=== PATIENT | male | born 1965 | race Caucasian/White ===

== ENCOUNTER 2018-01-22 05:46 | Emergency (ER) | payer BC ==
[2018-01-22] MEDS ORDERED: Phenylephrine HCl 10 MG/ML 1 ML VIAL ONE (06:09)
[2018-01-22] MEDS ORDERED: TERBUTALINE SULF 1 MG/1ML ONE (06:12)
[2018-01-22] MEDS ORDERED: LIDOCAINE 1% MPF 5 ML VIAL ONE (06:49)
--- NOTE | 2018-01-22 06:57 | EDPHYS ---
Physician Documentation [facility] Name: Zeke Mackay Sr Age: 53 yrs Sex: Male : 1965 Arrival Date: 01/22/2018 Time: 05:47 Bed 5 Private MD: ED Physician Emanuel England HPI: 01/22 06:17 This 53 yrs old Male presents to ER via Ambulatory with complaints of Penile rn Problem. 06:17 The patient presents with priapism. Onset: The symptoms/episode began/occurred 5 rn hour(s) ago. Modifying factors: The symptoms are alleviated by nothing, the symptoms are aggravated by nothing. Severity of symptoms: At their worst the symptoms were moderate, in the emergency department the symptoms are unchanged. The patient has not experienced similar symptoms in the past. Reports used ED injection and has had priapism since 89, mild pain, tried Sudafed, did not work, was first time using this medication, trimix.. Historical: - Allergies: 06:01 No Known Allergies; aa1 - Home Meds: 06:01 levothyroxine oral once daily [Active]; Metformin Oral [Active]; Novolin 70/30 [place] aa1 Sub-Q [Active]; testosterone [Active]; Trimix [Active]; - PMHx: 06:01 cervical stenosis; Diabetes - IDDM; Hypertension; Hypothyroidism; aa1 - PSHx: 06:01 HIP; Appendectomy; bone graft; c-spine sx; aa1 - Immunization history:: Adult Immunizations up to date. - Social history:: Smoking status: Patient/guardian denies using tobacco. - Ebola Screening: : No symptoms or risks identified at this time. - Family history:: not pertinent. - Hospitalizations: : No recent hospitalization is reported. ROS: 06:20 Constitutional: Negative for fever, chills, and weight loss, Eyes: Negative for injury, rn pain, redness, and discharge, Neck: Negative for injury, pain, and swelling, Cardiovascular: Negative for chest pain, palpitations, and edema, Respiratory: Negative for shortness of breath, cough, wheezing, and pleuritic chest pain, Abdomen/GI: Negative for abdominal pain, nausea, vomiting, diarrhea, and constipation, : + priapism MS/Extremity: Negative for injury and deformity, Skin: Negative for injury, rash, and discoloration, Neuro: Negative for headache, weakness, numbness, tingling, and seizure. Exam: 06:20 Constitutional: This is a well developed, well nourished patient who is awake, alert, rn and in no acute distress. Male : + erection, no signs of trauma, no discoloration Vital Signs: 06:01 BP 150 / 107; Pulse 90; Resp 18; Temp 97.2; Pulse Ox 99% on R/A; Weight 92.99 kg; aa1 Height 6 ft. 2 in. (187.96 cm); 06:24 BP 152 / 76; Pulse 94; Resp 14; Pulse Ox 96% ; bp 06:01 Body Mass Index 26.32 (92.99 kg, 187.96 cm) aa1 MDM: 06:05 Patient medically screened. snw 06:24 ED course: Called Dr. Harris, no answer, message left on phone. rn 06:41 Differential diagnosis: priapism. Data reviewed: vital signs, nurses notes, and as a rn result, I will discharge patient. Counseling: I had a detailed discussion with the patient and/or guardian regarding: the historical points, exam findings, and any diagnostic results supporting the discharge/admit diagnosis, the need for outpatient follow up, to return to the emergency department if symptoms worsen or persist or if there are any questions or concerns that arise at home. Response to treatment: the patient's symptoms have markedly improved after treatment, Pt reports erection decreased by atleast 60% already after first terbutaline, will give 2nd injection. Pt reports feels better, I recommended he f/u with his urologist for eval and doppler, as well as dosage change as states this was first full dose of medication he gave himself., and as a result, I will discharge patient. ED course: Will continue to monitor and dc as long as symptoms continue to improve, return precautions given and understood.. 06:43 ED course: Was going to aspirate but after reevaluation improved flaccidity and will rn give 2nd terbutaline instead of aspiration.. 06:54 ED course: After second dose of terbutaline, patient now soft and flaccid, not rigid, rn feels better except for some soreness, consulted with Dr. Harris who was going to come see patient, but due to response to terbutaline, states ok to dc home and f/u with his urologist, as well as likely needs lower dose. . Administered Medications: 06:12 Drug: Terbutaline 0.5 mg Route: Sub-Q; Site: right upper arm; aa1 06:44 Drug: Terbutaline 0.5 mg Route: Sub-Q; Site: right upper arm; aa1 06:54 Drug: Lidocaine (1 %) 20 mg {Note: at b/s for provider.} Volume: 20 ml; Route: cc3 Infiltration; Disposition: 01/22/18 06:56 Discharged to Home. Impression: Priapism. - Condition is Stable. - Discharge Instructions: Priapism. - Medication Reconciliation Form, Thank You Letter, Antibiotic Education, Prescription Opioid Use form. - Follow up: Private Physician; When: As needed; Reason: Recheck today's complaints, Re-evaluation by your physician. - Problem is new. - Symptoms have improved. Signatures: Altagracia Jose RN RN aa1 Mariana Persaud, CHANGE MANAGEMENT EXPERT-C CHANGE MANAGEMENT EXPERT-Csnw Regina Salamanca RN RN iw Nieto, Roman, MD MD rn Peltier, Brian, RN RN bp Cordel, Charlene cc3 Corrections: (The following items were deleted from the chart) 07:09 06:56 01/22/2018 06:56 Discharged to Home. Impression: Priapism. Condition is Stable. iw Forms are Medication Reconciliation Form, Thank You Letter, Antibiotic Education, Prescription Opioid Use. Follow up: Private Physician; When: As needed; Reason: Recheck today's complaints, Re-evaluation by your physician. Problem is new. Symptoms have improved. rn
--- NOTE | 2018-01-22 06:57 | ER ---
Nurse's Notes [facility] Name: Zeke Mackay Sr Age: 53 yrs Sex: Male : 1965 Arrival Date: 01/22/2018 Time: 05:47 Bed 5 Private MD: Diagnosis: Priapism Presentation: 01/22 05:55 Presenting complaint: Patient states: he gave himself a Trimix injection for ED for the aa1 first time last night and has had an erection that has lasted 5 hours. Reports he took Sudafed as directed to try to counteract it but it did not help. Transition of care: patient was not received from another setting of care. Onset of symptoms was January 22, 2018. Risk Assessment: Do you want to hurt yourself or someone else? Patient reports no desire to harm self or others. Initial Sepsis Screen: Does the patient meet any 2 criteria? No. Patient's initial sepsis screen is negative. Does the patient have a suspected source of infection? No. Patient's initial sepsis screen is negative. Care prior to arrival: None. 05:55 Method Of Arrival: Ambulatory aa1 05:55 Acuity: RICKEY 3 aa1 Historical: - Allergies: 06:01 No Known Allergies; aa1 - Home Meds: 06:01 levothyroxine oral once daily [Active]; Metformin Oral [Active]; Novolin 70/30 [place] aa1 Sub-Q [Active]; testosterone [Active]; Trimix [Active]; - PMHx: 06:01 cervical stenosis; Diabetes - IDDM; Hypertension; Hypothyroidism; aa1 - PSHx: 06:01 HIP; Appendectomy; bone graft; c-spine sx; aa1 - Immunization history:: Adult Immunizations up to date. - Social history:: Smoking status: Patient/guardian denies using tobacco. - Ebola Screening: : No symptoms or risks identified at this time. - Family history:: not pertinent. - Hospitalizations: : No recent hospitalization is reported. Screenin:26 Abuse screen: Denies threats or abuse. Denies injuries from another. Nutritional bp screening: No deficits noted. Tuberculosis screening: No symptoms or risk factors identified. Fall Risk None identified. Assessment: 06:05 General: Appears distressed, uncomfortable, Behavior is cooperative, appropriate for bp age, anxious. Pain: Complains of pain in groin. Neuro: Level of Consciousness is awake, alert, obeys commands, Oriented to person, place, time, situation, Appropriate for age. Cardiovascular: No deficits noted. Respiratory: Airway is patent Respiratory effort is even, unlabored, Respiratory pattern is regular, symmetrical. GI: No signs and/or symptoms were reported involving the gastrointestinal system. : Reports PRIAPISM. EENT: No deficits noted. Derm: No signs and/or symptoms reported regarding the dermatologic system. Musculoskeletal: Circulation, motion, and sensation intact. Range of motion: intact in all extremities. Vital Signs: 06:01 BP 150 / 107; Pulse 90; Resp 18; Temp 97.2; Pulse Ox 99% on R/A; Weight 92.99 kg; aa1 Height 6 ft. 2 in. (187.96 cm); 06:24 BP 152 / 76; Pulse 94; Resp 14; Pulse Ox 96% ; bp 06:01 Body Mass Index 26.32 (92.99 kg, 187.96 cm) aa1 ED Course: 05:47 Patient arrived in ED. am2 05:55 John Parrish, ARTURO is Primary Nurse. bp 05:59 Triage completed. aa1 06:01 Arm band placed on right wrist. Patient placed in an exam room, on a stretcher. aa1 06:04 Mariana Persaud FNP-C is [facility]. snw 06:04 Pratik Solorzano MD is Attending Physician. snw 06:17 Attending Physician role handed off by Pratik Solorzano MD rn 06:17 Emanuel England MD is Attending Physician. rn 06:26 Patient has correct armband on for positive identification. Bed in low position. Call bp light in reach. Side rails up X2. 07:08 No provider procedures requiring assistance completed. Patient did not have IV access iw during this emergency room visit. Administered Medications: 06:12 Drug: Terbutaline 0.5 mg Route: Sub-Q; Site: right upper arm; aa1 06:44 Drug: Terbutaline 0.5 mg Route: Sub-Q; Site: right upper arm; aa1 06:54 Drug: Lidocaine (1 %) 20 mg {Note: at b/s for provider.} Volume: 20 ml; Route: cc3 Infiltration; Outcome: 06:56 Discharge ordered by . rn 07:08 Discharged to home ambulatory. iw 07:08 Condition: good 07:08 Discharge instructions given to patient, Instructed on discharge instructions, follow up and referral plans. Demonstrated understanding of instructions, follow-up care. 07:09 Patient left the ED. iw Signatures: Altagracia Jose RN RN aa1 Mariana Persaud, SOUND RECORDING TECHNICIAN-C SOUND RECORDING TECHNICIAN-Csnw Regina Salamanca RN RN iw Emanuel England MD MD rn Moreno, Amanda am2 John Parrish RN RN Cassidy Snyder cc3
[2018-01-22 07:20] VITALS: TEMP 97.2
[2018-01-22 07:21] VITALS: BP 152/76; O2SAT 96
== END 2018-01-22 07:09 | disposition home or self-care (01) ==
LOC: ER 05:46
DX: N48.30 Priapism, unspecified (principal); I10 Essential (primary) hypertension; E11.9 Type 2 diabetes mellitus without complications; E03.9 Hypothyroidism, unspecified; Z79.4 Long term (current) use of insulin
CPT/HCPCS: 96372; 99283; J2370; J3105

== ENCOUNTER 2018-02-02 10:09 | Emergency (ER) | payer BC ==
--- OUTSIDE RECORDS SUMMARY | 2018-02-02 10:11 | XMS REPORT | Clinical Summary ---
:1965 Author Organization [facility] Address [address] [place] [address] Care Team Providers Name Role Phone Provider, Unknown Primary Care Provider Allergies No Known Allergies Current Medications Prescription Sig. Disp. Refills Start Date End Date Status insulin NPH and Inject under the Active regular human skin. (HumuLIN 70/30) 100 unit/mL (70-30) injection metFORMIN Take 500 mg by Active (GLUCOPHAGE) 500 mg mouth 2 (two) tablet times a day with meals. tadalafil (CIALIS, Take 1.5 tablets 30 tablet 2 02/19/2017 03/21/2017 ADCIRCA) 5 MG (7.5 mg total) by tabletIndications: mouth daily as Erectile dysfunction needed for due to arterial erectile insufficiency dysfunction for up to 30 days. Active Problems Not on file Encounters Date Type Specialty Care Team Description 06/17/2017 Telephone Urology Jono Sparks MD 05/02/2017 Office Visit Urologlizeth Sparks, Erectile dysfunction due to arterial insufficiency (Primary Dx); Jono Pierre MD Diabetes mellitus due to underlying condition with complication, unspecified half-way insulin use status 04/22/2017 Telephone UrologJono Calderon MD 02/21/2017 Telephone Urology Jono Sparks MD 02/21/2017 Telephone Urology Jono Sparks MD 02/19/2017 Office Visit Urologlizeth Sparks Erectile dysfunction due to Jono Pierre MD arterial insufficiency (Primary Dx) after 02/01/2017 Family History Medical History Relation Name Comments Stroke Mother Relation Name Status Comments Mother Alive Social History Tobacco Use Types Packs/Day Years Used Date Never Smoker Smokeless Tobacco: Never Used Alcohol Use Drinks/Week oz/Week Comments Yes Sex Assigned at Date Recorded Not on file Last Filed Vital Signs Not on file Plan of Treatment Health Maintenance Due Date Last Done Comments DIABETIC FOOT EXAM 01/09/1974 DIABETIC RETINAL EYE EXAM 01/09/1974 URINE MICROALBUMIN 01/09/1974 COLON CANCER SCREENING 01/09/2014 SHINGRIX VACCINE (#1) 01/09/2014 INFLUENZA VACCINE 12/18/2017 Procedures Procedure Name Priority Date/Time Associated Diagnosis Comments HEMOGLOBIN A1C Routine 05/02/2017 12:00 Diabetes mellitus due Results for this PM COMMISSARY REPRESENTATIVE to underlying procedure are in condition with the results complication, section. unspecified oysterman insulin use status POC URINALYSIS Routine 05/02/2017 11:14 Erectile dysfunction Results for this DIPSTICK AM COMMISSARY REPRESENTATIVE due to arterial procedure are in insufficiency the results section. PENILE DUPLEX SCAN Routine 02/12/2017 11:15 Vascular disorder of Results for this AM CDT penis procedure are in the results section. after 02/01/2017 Results Hemoglobin A1c (05/02/2017 12:00 PM) Hemoglobin A1C 11.2 (H) 4.8 - 5.6 % [facility] Comment: Pre-diabetes: 5.7 - 6.4 Diabetes: >6.4 Glycemic control for adults with diabetes: <7.0 Specimen Blood Narrative Performed At Performed at: [facility] [address] [place], [place] [id number] Weeder Thinner: Linus Cooley MD, Phone:[phone] Performing Organization Address City/State/Zipcode Phone Number [facility] POC urinalysis dipstick (05/02/2017 11:14 AM) Color urine, POC Yellow Clarity urine, POC Clear Glucose urine, POC 3+ (A) Negative Bilirubin urine, POC Negative Negative Ketones urine, POC Negative Negative Specific gravity urine, POC 1.015 1.005 - 1.030 Blood urine, POC Negative Negative pH urine, POC 6.0 5.0, 5.5, 6.0, 6.5, 7.0, 7.5, 8.0, 8.5 Protein urine, POC Negative Negative Urobilinogen urine, POC <2.0 <2.0 Nitrite urine, POC Negative Negative Leukocyte esterase urine, POC Negative Negative Specimen Urine Penile Duplex Scan (02/12/2017 11:15 AM) Narrative Performed At Penile U/S and doppler study [facility] Diagnosis:Vascular disorder of penis Peyronie's plaque present on exam: absent Medication Tri-Mix 0.25 mL. left corpus cavernosa/ time of injection 10:27 am Quality of erection @ 10 minutes 70%,@15 minutes 85%. Adequate for intercourse yes Right CA diameter 0.8 mm. @ 10 minutes/ 0.8 @ 15 minutes (ref: range of>0.7mm) Left CA diameter 0.7 mm@ 10 minutes / 0.8 mm. @ 15 minutes (ref: range of>0.7mm) Right PSV 10 min 19.2 cm /s @ 15 minutes 20.1 cm /s (ref:>0.25-0.30 cm /s) Left PSV 10 min 45.7 cm /s@ 15 mint 64.3cm /s (ref:>0.25-0.30cm /s) RightResistive index93%(reference range of greater 90%) Left Resistive index92% (reference range of greater 90%) Right CA pulsatile yes Left CA pulsatile yes Parameters within reference range: no Systolic velocities below reference range on Right Resistive indices normal reference range onBilateral Persistent diastolic flownone} Cavernosal dilatation normal reference range on Bilateral Rigidity after injection: Rigidity 10 minutes after injection :grade 1 Rigidity 15 minutes after injectiongrade 1 Rigidity after stimulation: : grade 2 Comments: Right arterial insufficiency Performing Organization Address City/State/Zipcode Phone Number [facility] [address] [place] [address] after 02/01/2017 Insurance Payer Benefit Plan / Group Subscriber ID Type Phone Address BCBS BCBS CHOICE PPO/FEDERAL EMPL PPO xxxxxxxxxxxx PPO [phone] [place] [id number]
[2018-02-02] MEDS ORDERED: BUPIVACAINE 0.5% PF 10 ML VIAL ONE (10:33)
[2018-02-02] MEDS ORDERED: LIDOCAINE 1% MPF 2 ML AMPULE ONE (10:35)
[2018-02-02] MEDS ORDERED: TETANUS & DIPHTHERIA TOX,ADULT 0.5 ML VIAL ONE (10:42)
--- NOTE | 2018-02-02 11:13 | RAD REPORT ---
EXAM DESCRIPTION: RAD - Hand Left 3 View - 02/02/2018 10:51 am CLINICAL HISTORY: Blunt force trauma to the third digit COMPARISON: None. FINDINGS: Comminuted fracture involves the tuft of the distal third digit. No significant angulation deformity. Minimal distraction of a medial tuft fracture fragment. The third DIP joint is normal. No other fracture or acute bone finding. No foreign body or other soft tissue abnormality. IMPRESSION: Comminuted fracture involving the third distal phalanx tuft.
[2018-02-02] MEDS ORDERED: WATER FOR INJ,STERILE 10 ML ONE (11:52)
[2018-02-02] MEDS ORDERED: CEFAZOLIN SODIUM 1 GM/VIAL ONE (11:52)
--- NOTE | 2018-02-02 12:04 | ER ---
Nurse's Notes [facility] Name: Zeke Mackay Sr Age: 53 yrs Sex: Male : 1965 Arrival Date: 02/02/2018 Time: 10:11 Bed 20 Private MD: out of town, doctor Diagnosis: Displaced fracture of distal phalanx of left middle finger-with nail avulsion;Left Middle Finger Nailbed Laceration Presentation: 02/02 10:14 Presenting complaint: Patient states: I got my left index finger crushed working on the la1 car, nail involved. Transition of care: patient was not received from another setting of care. Onset of symptoms was February 02, 2018. Risk Assessment: Do you want to hurt yourself or someone else? Patient reports no desire to harm self or others. Initial Sepsis Screen: Does the patient meet any 2 criteria? No. Patient's initial sepsis screen is negative. Does the patient have a suspected source of infection? No. Patient's initial sepsis screen is negative. Care prior to arrival: None. 10:14 Method Of Arrival: Ambulatory la1 10:14 Acuity: RICKEY 4 la1 Triage Assessment: 10:25 General: Appears in no apparent distress. uncomfortable, Behavior is calm, cooperative, hj agitated. Pain:. 10:37 Musculoskeletal: Reports pain in left middle fingernail. Injury Description: Laceration.hj Historical: - Allergies: 10:15 No Known Allergies; la1 - Home Meds: 10:15 levothyroxine oral once daily [Active]; Metformin Oral [Active]; Novolin 70/30 [place] hj Sub-Q [Active]; testosterone [Active]; Trimix [Active]; - PMHx: 10:15 cervical stenosis; Diabetes - IDDM; Hypertension; Hypothyroidism; la1 - PSHx: 10:15 HIP; Appendectomy; bone graft; c-spine sx; hj - Immunization history:: Adult Immunizations up to date. - Social history:: Smoking status: unknown. - Ebola Screening: : No symptoms or risks identified at this time. Screenin:25 Abuse screen: Denies threats or abuse. Denies injuries from another. Nutritional hj screening: No deficits noted. Tuberculosis screening: No symptoms or risk factors identified. Fall Risk None identified. Vital Signs: 10:15 BP 145 / 91; Pulse 85; Resp 16; Temp 97.6; Pulse Ox 100% on R/A; Weight 97.52 kg; la1 Height 6 ft. 2 in. (187.96 cm); 12:16 BP 140 / 89; Pulse 84; Resp 18; Pulse Ox 100% on R/A; hj 10:15 Body Mass Index 27.60 (97.52 kg, 187.96 cm) la1 ED Course: 10:11 Patient arrived in ED. mr 10:11 out of town, doctor is Private Physician. mr 10:15 Triage completed. la1 10:15 Arm band placed on right wrist. la1 10:18 Rashi Miranda PA is PHCP. cp 10:18 Gillian Macias MD is Attending Physician. cp 10:24 Arpan Torres, ARTURO is Primary Nurse. hj 10:37 Wound care: to laceration located on left hand , middle finger was soaked in Betadine mh5 solution, Patient tolerated well. 10:37 No provider procedures requiring assistance completed. Patient did not have IV access hj during this emergency room visit. 10:40 Patient has correct armband on for positive identification. Bed in low position. Call mh5 light in reach. Side rails up X 1. Adult w/ patient. 10:52 XRAY Hand LEFT 3 View In Process Unspecified. EDMS 12:02 Kolton Rodriguez MD is Referral Physician. 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 Exp: 02/14/2020. Lot #: [id number]. } Route: IM; Site: right deltoid; 11:28 Follow up: Response: No adverse reaction hj 10:50 Drug: Lidocaine (1 %) 5 ml Volume: 20 ml; Route: Infiltration; hj 10:50 Drug: Marcaine (0.5 %) 5 ml Volume: 10 ml; Route: Infiltration; hj 11:28 Drug: Ancef 1 grams Route: IM; Site: right deltoid; hj 11:56 Follow up: Response: No adverse reaction hj Outcome: 12:03 Discharge ordered by MD. cp 12:15 Discharged to home ambulatory, with family. hj 12:15 Condition: stable 12:15 Discharge instructions given to patient, family, Instructed on discharge instructions, follow up and referral plans. medication usage, wound care, Demonstrated understanding of instructions, follow-up care, medications, wound care, Prescriptions given X 2. 12:21 Patient left the ED. andres Signatures: Dispatcher [employer] Ladi Uriarte Lee, RN RN la1 Arpan Torres RN RN hj Page, Corey, PA PA cp Martinez, Maria 5
--- NOTE | 2018-02-02 12:04 | EDPHYS ---
Physician Documentation [facility] Name: Zeke Mackay Sr Age: 53 yrs Sex: Male : 1965 Arrival Date: 02/02/2018 Time: 10:11 Bed 20 Private MD: out of town, doctor ED Physician Gillian Macias HPI: 02/02 10:30 This 53 yrs old Male presents to ER via Ambulatory with complaints of Finger cp Injury. Historical: - Allergies: 10:15 No Known Allergies; la1 - Home Meds: 10:15 levothyroxine oral once daily [Active]; Metformin Oral [Active]; Novolin 70/30 [place] hj Sub-Q [Active]; testosterone [Active]; Trimix [Active]; - PMHx: 10:15 cervical stenosis; Diabetes - IDDM; Hypertension; Hypothyroidism; la1 - PSHx: 10:15 HIP; Appendectomy; bone graft; c-spine sx; hj - Immunization history:: Adult Immunizations up to date. - Social history:: Smoking status: unknown. - Ebola Screening: : No symptoms or risks identified at this time. ROS: 10:35 Constitutional: Negative for body aches, chills, fever, poor PO intake. cp 10:35 Eyes: Negative for injury, pain, redness, and discharge. cp 10:35 ENT: Negative for drainage from ear(s), ear pain, sore throat. 10:35 Cardiovascular: Negative for chest pain, palpitations. 10:35 Respiratory: Negative for cough, shortness of breath, wheezing. 10:35 Abdomen/GI: Negative for abdominal pain, nausea, vomiting, and diarrhea. 10:35 MS/extremity: Positive for injury or acute deformity, pain, of the distal phalanx left middle finger, Negative for decreased range of motion, paresthesias. 10:35 All other systems are negative. Exam: 11:00 Constitutional: The patient appears in no acute distress, alert, awake, non-toxic, well cp developed, well nourished. 11:00 Head/Face: Normocephalic, atraumatic. cp 11:00 Eyes: Periorbital structures: appear normal, Conjunctiva: normal, no exudate, no injection, Lids and lashes: appear normal, bilaterally. 11:00 ENT: External ear(s): are unremarkable, Nose: is normal, Mouth: is normal, Posterior pharynx: is normal, airway is patent. 11:00 Chest/axilla: Inspection: normal. 11:00 Cardiovascular: Rate: normal, Rhythm: regular. 11:00 Respiratory: the patient does not display signs of respiratory distress, Respirations: normal, no use of accessory muscles, no retractions, no splinting, no tachypnea. 11:00 Abdomen/GI: Exam negative for discomfort, distension, guarding, Inspection: abdomen appears normal. 11:00 Musculoskeletal/extremity: Extremities: grossly normal except: noted in the crush injury distal phalanx left middle finger: laceration, pain, complete avulsion of nail, Perfusion: the extremity is normally perfused throughout, Sensation intact. Tendon exam: specific tendon testing normal through active and passive range of motion Vital Signs: 10:15 BP 145 / 91; Pulse 85; Resp 16; Temp 97.6; Pulse Ox 100% on R/A; Weight 97.52 kg; la1 Height 6 ft. 2 in. (187.96 cm); 12:16 BP 140 / 89; Pulse 84; Resp 18; Pulse Ox 100% on R/A; hj 10:15 Body Mass Index 27.60 (97.52 kg, 187.96 cm) la1 Laceration: 11:57 Wound Repair of 1.5cm ( 0.6in ) nailbed laceration to distal phalanx left middle cp finger. Irregularly shaped.. Distal neuro/vascular/tendon intact. Anesthesia: Digital block administered with 8 mls of Lido/Marcaine. Wound prep: Extensive cleansing by me, Wound irrigation by me, Copious irrigation. nailbed closed with 5 5-0 Vicryl using interrupted sutures and sterile technique. Dressed with tube gauze, xeroform. Patient tolerated well. 11:57 Wound Repair of 1.5cm ( 0.6in ) subcutaneous laceration to distal phalanx left middle cp finger. Linear shaped.. Distal neuro/vascular/tendon intact. Anesthesia: Digital block administered with 8 mls of Lido/Marcaine. Wound prep: Extensive cleansing by me, Wound irrigation by me, Copious irrigation. Skin closed with 3 5-0 Prolene using interrupted sutures and sterile technique. Dressed with Bacitracin, tube gauze. Patient tolerated well. MDM: 10:18 Patient medically screened. cp 10:30 Differential diagnosis: open fracture, closed fracture, contusion. cp 12:00 Data reviewed: vital signs, nurses notes, radiologic studies, plain films. cp 12:00 Test interpretation: by ED physician or midlevel provider: plain radiologic studies. cp Counseling: I had a detailed discussion with the patient and/or guardian regarding: the historical points, exam findings, and any diagnostic results supporting the discharge/admit diagnosis, radiology results, the need for outpatient follow up, a hand specialist, to return to the emergency department if symptoms worsen or persist or if there are any questions or concerns that arise at home. Response to treatment: the patient's symptoms have markedly improved after treatment, and as a result, I will discharge patient. Special discussion: I discussed in detail with the patient the higher chance of wound infection based on his presenting history. 02/02 10:27 Order name: XRAY Hand LEFT 3 View; Complete Time: 11:14 cp 02/02 10:27 Order name: Dressing - Wound; Complete Time: 10:41 cp 02/02 10:27 Order name: Gloves, Sterile; Complete Time: 10:41 cp 02/02 10:27 Order name: Setup Suture Tray; Complete Time: 10:41 cp 02/02 11:56 Order name: Wound dressing; Complete Time: 12:04 cp Administered Medications: 10:30 Drug: Tetanus-Diphtheria Toxoid Adult 0.5 ml {Brass Sorter: [employer]. Exp: 02/14/2020. Lot #: [id number]. } Route: IM; Site: right deltoid; 11:28 Follow up: Response: No adverse reaction hj 10:50 Drug: Lidocaine (1 %) 5 ml Volume: 20 ml; Route: Infiltration; hj 10:50 Drug: Marcaine (0.5 %) 5 ml Volume: 10 ml; Route: Infiltration; hj 11:28 Drug: Ancef 1 grams Route: IM; Site: right deltoid; 11:56 Follow up: Response: No adverse reaction Disposition: 18:20 Co-signature as Attending Physician, Gillian Macias MD. ma2 Disposition: 02/02/18 12:03 Discharged to Home. Impression: Displaced fracture of distal phalanx of left middle finger - with nail avulsion, Left Middle Finger Nailbed Laceration. - Condition is Stable. - Discharge Instructions: Finger Fracture, Nail Avulsion, Nail Bed Laceration. - Prescriptions for Keflex 500 mg Oral Capsule - take 1 capsule by ORAL route every 6 hours for 10 days; 40 capsule. Tylenol- Codeine #3 300-30 mg Oral Tablet - take 2 tablets by ORAL route every 6 hours As needed; 20 tablet. - Medication Reconciliation Form, Thank You Letter, Antibiotic Education, Prescription Opioid Use form. - Follow up: Kolton Rodriguez MD; When: 1 - 2 days; Reason: Wound Recheck. - Problem is new. - Symptoms have improved. Signatures: Dispatcher [employer] EDMS You Carson RN RN la1 Arpan Torres RN RN hj Rashi Miranda PA PA cp Gillian Macias MD MD ma2 Corrections: (The following items were deleted from the chart) 12:06 12:03 02/02/2018 12:03 Discharged to Home. Impression: Displaced fracture of distal cp phalanx of left middle finger - with nail damage. Condition is Stable. Forms are Medication Reconciliation Form, Thank You Letter, Antibiotic Education, Prescription Opioid Use. Follow up: Kolton Rodriguez; When: 1 - 2 days; Reason: Wound Recheck. Problem is new. Symptoms have improved. cp 12:21 12:06 02/02/2018 12:03 Discharged to Home. Impression: Displaced fracture of distal hj phalanx of left middle finger - with nail avulsion; Left Middle Finger Nailbed Laceration. Condition is Stable. Discharge Instructions: Finger Fracture, Nail Avulsion, Nail Bed Laceration. Prescriptions for Keflex 500 mg Oral Capsule - take 1 capsule by ORAL route every 6 hours for 10 days; 40 capsule, Tylenol-Codeine #3 300-30 mg Oral Tablet - take 2 tablets by ORAL route every 6 hours As needed; 20 tablet. and Forms are Medication Reconciliation Form, Thank You Letter, Antibiotic Education, Prescription Opioid Use. Follow up: Kolton Rodriguez; When: 1 - 2 days; Reason: Wound Recheck. Problem is new. Symptoms have improved. cp
[2018-02-02 12:38] VITALS: TEMP 97.6; O2SAT 100
[2018-02-02 12:39] VITALS: BP 140/89
== END 2018-02-02 12:21 | disposition home or self-care (01) ==
LOC: ER 10:09
PROC: 0JQK0ZZ Repair Left Hand Subcutaneous Tissue and Fascia, Open Approach (ICD-10-PCS; principal; 2018-02-02)
DX: S62.633A Displaced fracture of distal phalanx of left middle finger, initial encounter for closed fracture (principal); S61.313A Laceration without foreign body of left middle finger with damage to nail, initial encounter; Z23 Encounter for immunization; I10 Essential (primary) hypertension; E11.9 Type 2 diabetes mellitus without complications; E03.9 Hypothyroidism, unspecified
CPT/HCPCS: 90714; 96372; 99284; J0690; J2001

== ENCOUNTER 2018-07-22 09:59 | Emergency (ER) | payer BC ==
--- OUTSIDE RECORDS SUMMARY | 2018-07-22 10:05 | XMS REPORT | Clinical Summary ---
:1965 Author Organization [facility] Address [address] [place] [address] Care Team Providers Name Role Phone Provider, Unknown Primary Care Provider Allergies No Known Allergies Medications Medication Sig Dispensed Refills Start Date End Date Status insulin NPH and Inject under the 0 Active regular human (HumuLIN skin. 70/30) 100 unit/mL (70-30) injection metFORMIN (GLUCOPHAGE) Take 500 mg by 0 Active 500 mg tablet mouth 2 (two) times a day with meals. Active Problems Not on file Family History Medical History Relation Name Comments Stroke Mother Relation Name Status Comments Mother Alive Social History Tobacco Use Types Packs/Day Years Used Date Never Smoker Smokeless Tobacco: Never Used Alcohol Use Drinks/Week oz/Week Comments Yes Sex Assigned at Date Recorded Not on file Job Start Date Occupation Industry Not on file Not on file Not on file Travel History Travel Start Travel End No recent travel history available. Last Filed Vital Signs Not on file Plan of Treatment Health Maintenance Due Date Last Done Comments COLON CANCER SCREENING 01/09/2014 SHINGLES VACCINES (#1) 01/09/2014 INFLUENZA VACCINE 12/18/2017 Results Not on fileafter 07/21/2017 Insurance Payer Benefit Plan / Group Subscriber ID Type Phone Address BCBS BCBS CHOICE PPO/FEDERAL EMPL PPO xxxxxxxxxxxx PPO Advance Directives Patient has advance care planning documents on file. For more information, please contact:[address] [address]
--- NOTE | 2018-07-22 10:35 | ER ---
Nurse's Notes [facility] Name: Zeke Mackay Sr Age: 53 yrs Sex: Male : 1965 Arrival Date: 07/22/2018 Time: 10:00 Bed 15 Private MD: Hazel Mcbride Z Diagnosis: Pressure ulcer of other site, stage 4 Presentation: 07/22 10:18 Presenting complaint: Patient states: wound to L great toe, started about one month rb1 ago. it smells. Transition of care: patient was not received from another setting of care. Onset of symptoms was June 2018. Risk Assessment: Do you want to hurt yourself or someone else? Patient reports no desire to harm self or others. Initial Sepsis Screen: Does the patient meet any 2 criteria? No. Patient's initial sepsis screen is negative. Does the patient have a suspected source of infection? Yes: Skin breakdown/wound. Care prior to arrival: None. 10:18 Method Of Arrival: Ambulatory rb1 10:18 Acuity: RICKEY 3 rb1 Triage Assessment: 10:20 General: Appears in no apparent distress. comfortable, Behavior is calm, cooperative, rb1 appropriate for age. Pain: Denies pain. 10:27 Musculoskeletal: Capillary refill < 3 seconds, in bilateral toes. pt has swelling and a ch wound to L great toe, entire toe is reddened and enlarged. pt has wound to bottom lateral side of toe, black around the edges. 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 - Social history:: Smoking status: Patient/guardian denies using tobacco. - Ebola Screening: : Patient negative for fever greater than or equal to 101.5 degrees Fahrenheit, and additional compatible Ebola Virus Disease symptoms Patient denies exposure to infectious person Patient denies travel to an Ebola-affected area in the 21 days before illness onset No symptoms or risks identified at this time. Screenin:15 Abuse screen: Denies threats or abuse. Nutritional screening: No deficits noted. rb1 Tuberculosis screening: No symptoms or risk factors identified. Fall Risk None identified. Assessment: 10:15 Reassessment: discharge pending due to Dr. Shin wanting to do an x-ray before the pt. rb1 is discharged and goes over to the wound care center. 10:15 General: Appears in no apparent distress. comfortable, Behavior is calm, cooperative, rb1 Denies fever, feeling ill. Pain: Denies pain. Neuro: Level of Consciousness is awake, alert, obeys commands, Oriented to person, place, time, situation. Cardiovascular: Capillary refill < 3 seconds is brisk in bilateral toes. Respiratory: Airway is patent Respiratory effort is even, unlabored, Respiratory pattern is regular, symmetrical. GI: No signs and/or symptoms were reported involving the gastrointestinal system. : No signs and/or symptoms were reported regarding the genitourinary system. Derm: Wound noted left great toe Wound is There is a whole on the left plantar great toe that has been there for a month per pt report. Musculoskeletal: Range of motion: intact in all extremities. 11:15 Reassessment: Patient appears in no apparent distress at this time. No changes from rb1 previously documented assessment. 11:24 Reassessment: x-ray at bedside. rb1 Vital Signs: 10:20 BP 161 / 92; Pulse 76; Resp 16; Temp 98.2; Pulse Ox 99% on R/A; Weight 91.17 kg; Height rb1 6 ft. 2 in. (187.96 cm); Pain 0/10; 11:20 BP 159 / 89; Pulse 72; Resp 17; Pulse Ox 100% on R/A; Pain 0/10; rb1 10:20 Body Mass Index 25.81 (91.17 kg, 187.96 cm) [facility] ED Course: 10:00 Patient arrived in ED. ag5 10:00 Hazel Mcbride MD is Private Physician. ag5 10:15 Arm band placed on left wrist. Patient placed in an exam room, on a stretcher, on pulse ch oximetry. 10:15 Patient has correct armband on for positive identification. Bed in low position. Call rb1 light in reach. Side rails up X 1. Pulse ox on. NIBP on. 10:16 Ronnell Shin MD is Attending Physician. gs 10:19 Triage completed. rb1 10:34 Juan Carlos Andrade DPM is Referral Physician. gs 10:34 Arpan Merino MD is Referral Physician. gs 10:39 Laquita Betancur, RN is Primary Nurse. rb1 11:35 Foot Left 3 View XRAY In Process Unspecified. EDMS 11:36 Juan Carlos Andrade DPM is Referral Physician. gs 11:36 Arpan Merino MD is Referral Physician. gs 11:42 No provider procedures requiring assistance completed. Patient did not have IV access rb1 during this emergency room visit. Administered Medications: No medications were administered Outcome: 10:35 Discharge ordered by MD. gs 11:37 Discharge ordered by MD. gs 11:42 Discharged to home ambulatory. rb1 11:42 Condition: stable 11:42 Discharge instructions given to patient, Instructed on discharge instructions, follow up and referral plans. medication usage, Demonstrated understanding of instructions, follow-up care, medications, Prescriptions given X 1. 11:42 Patient left the ED. rb1 Signatures: Dispatcher [employer] EDMS Emilia Marcano RN RN Laquita Betancur, ARTURO RN [facility] Ronnell Shin MD MD gs [place], Ajare ag5
--- NOTE | 2018-07-22 10:35 | EDPHYS ---
Physician Documentation [facility] Name: Zeke Mackay Sr Age: 53 yrs Sex: Male : 1965 Arrival Date: 07/22/2018 Time: 10:00 Bed 15 Private MD: Hazel Mcbride Z ED Physician Ronnell Shin HPI: 07/22 10:24 This 53 yrs old Male presents to ER via Ambulatory with complaints of gs INFECTED TOE. 10:24 The patient presents with ulcer plantar left great toe.. Onset: The symptoms/episode gs began/occurred 1 month(s) ago. Modifying factors: The symptoms are alleviated by nothing, the symptoms are aggravated by weight bearing. Associated signs and symptoms: Pertinent negatives: fever. Severity of symptoms: At their worst the symptoms were moderate, in the emergency department the symptoms are unchanged. The patient has not experienced similar symptoms in the past. 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 - Social history:: Smoking status: Patient/guardian denies using tobacco. - Ebola Screening: : Patient negative for fever greater than or equal to 101.5 degrees Fahrenheit, and additional compatible Ebola Virus Disease symptoms Patient denies exposure to infectious person Patient denies travel to an Ebola-affected area in the 21 days before illness onset No symptoms or risks identified at this time. ROS: 10:24 All other systems are negative. gs Exam: 10:24 Head/Face: Normocephalic, atraumatic. Cardiovascular: Regular rate and rhythm with a gs normal S1 and S2. No gallops, murmurs, or rubs. Normal PMI, no JVD. No pulse deficits. Respiratory: Lungs have equal breath sounds bilaterally, clear to auscultation and percussion. No rales, rhonchi or wheezes noted. No increased work of breathing, no retractions or nasal flaring. Abdomen/GI: Soft, non-tender, with normal bowel sounds. No distension or tympany. No guarding or rebound. No evidence of tenderness throughout. Back: No spinal tenderness. No costovertebral tenderness. Full range of motion. Neuro: Awake and alert, GCS 15, oriented to person, place, time, and situation. Cranial nerves II-XII grossly intact. Motor strength 5/5 in all extremities. Sensory grossly intact. Cerebellar exam normal. Normal gait. 10:24 Constitutional: The patient appears alert, awake. 10:24 Musculoskeletal/extremity: Circulation is intact in all extremities. Sensation intact. 10:24 Skin: lesion(s), located on the plantar aspect of right first toe. 10:24 Skin: 2x2 cm stage 4, large callous no erythema minimal drainage. Vital Signs: 10:20 BP 161 / 92; Pulse 76; Resp 16; Temp 98.2; Pulse Ox 99% on R/A; Weight 91.17 kg; Height rb1 6 ft. 2 in. (187.96 cm); Pain 0/10; 11:20 BP 159 / 89; Pulse 72; Resp 17; Pulse Ox 100% on R/A; Pain 0/10; rb1 10:20 Body Mass Index 25.81 (91.17 kg, 187.96 cm) rb1 MDM: 10:24 Patient medically screened. gs 10:24 Data reviewed: vital signs, nurses notes. Other consultation: wound care clinic will see now. 11:35 Differential diagnosis: ulcer,osteomyelitis. Data reviewed: radiologic studies, plain gs films. Response to treatment: the patient's symptoms have mildly improved after treatment, and as a result, I will discharge patient. 11:38 Counseling: I had a detailed discussion with the patient and/or guardian regarding: the gs historical points, exam findings, and any diagnostic results supporting the discharge/admit diagnosis, the presence of at least one elevated blood pressure reading (>120/80) during this emergency department visit, the need for outpatient follow up. Special discussion: I have referred the patient to see his PCP for further evaluation of high blood pressure. 07/22 10:39 Order name: Foot Left 3 View XRAY gs Administered Medications: No medications were administered Disposition: 07/22/18 11:37 Discharged to Home. Impression: Pressure ulcer of other site, stage 4. - Condition is Stable. - Discharge Instructions: Pressure Injury, Managing Your Hypertension. - Prescriptions for Levaquin 250 mg Oral Tablet - take 1 tablet by ORAL route once daily for 7 days; 7 tablet. - Medication Reconciliation Form, Thank You Letter, Antibiotic Education, Prescription Opioid Use form. - Follow up: Juan Carlos Andrade DPM; When: 2 - 3 days; Reason: Re-evaluation by your physician. Follow up: Arpan Merino MD; When: 2 - 3 days; Reason: Re-evaluation by your physician. Signatures: Dispatcher [employer] EDMS Emilia Marcano RN RN ch Laquita Betancur RN RN rb1 Ronnell Shin MD MD Corrections: (The following items were deleted from the chart) 10:38 10:24 The patient presents with ulcer plantar right great toe, gs gs 10:40 10:35 07/22/2018 10:35 Discharged to Home. Impression: Pressure ulcer of unspecified gs site, stage 4. Condition is Stable. Forms are Medication Reconciliation Form, Thank You Letter, Antibiotic Education, Prescription Opioid Use. Follow up: Juan Carlos Andrade; When: 2 - 3 days; Reason: Re-evaluation by your physician. Follow up: Arpan Merino; When: 2 - 3 days. gs 11:42 11:37 07/22/2018 11:37 Discharged to Home. Impression: Pressure ulcer of other site, rb1 stage 4. Condition is Stable. Prescriptions for Levaquin 250 mg Oral Tablet - take 1 tablet by ORAL route once daily for 7 days; 7 tablet. and Forms are Medication Reconciliation Form, Thank You Letter, Antibiotic Education, Prescription Opioid Use. Follow up: Juan Carlos Andrade; When: 2 - 3 days; Reason: Re-evaluation by your physician. Follow up: Arpan Merino; When: 2 - 3 days; Reason: Re-evaluation by your physician. gs
--- NOTE | 2018-07-22 11:45 | RAD REPORT ---
EXAM DESCRIPTION: RAD - Foot Left 3 View - 07/22/2018 11:35 am CLINICAL HISTORY: Left Foot pain FINDINGS: No fracture or dislocation is seen. Ulceration plantar soft tissue medial forefoot. No bony destructive lesion is seen. Bones are osteoporotic
[2018-07-22 11:51] VITALS: BP 159/89; O2SAT 100
[2018-07-22 11:52] VITALS: TEMP 98.2
== END 2018-07-22 11:42 | disposition home or self-care (01) ==
LOC: ER 09:59
DX: L89.894 Pressure ulcer of other site, stage 4 (principal); E11.9 Type 2 diabetes mellitus without complications; I10 Essential (primary) hypertension; E03.9 Hypothyroidism, unspecified; Z79.4 Long term (current) use of insulin
CPT/HCPCS: 99283

== ENCOUNTER 2018-08-04 11:40 | Inpatient (IN) | payer BC ==
--- OUTSIDE RECORDS SUMMARY | 2018-08-04 11:46 | XMS REPORT | Clinical Summary ---
:1965 Author Organization [facility] Address [address] [place] [address] Care Team Providers Name Role Phone Provider, [...] INFLUENZA VACCINE 12/18/2017 Results Not on fileafter 08/03/2017 Insurance Payer Benefit Plan / Group Subscriber ID Type Phone Address BCBS BCBS CHOICE PPO/FEDERAL EMPL PPO xxxxxxxxxxxx PPO Advance Directives Patient has advance care planning documents on file. For more information, please contact:[address] [address]
[2018-08-04 14:53] VITALS: BMI 25.7
[2018-08-04 15:11] LABS: Absolute Lymphocytes (CBC) 1.7 K/uL (0.7-4.9); Absolute Monocytes 0.6 K/uL (0.1-1.3); Absolute Neutrophil 6.1 K/uL (1.8-8.0); Eosinophils % 0.7 % (0-4.4); Hematocrit 41.8 % (39.6-49.0); Lymphocytes % 19.9 % (15.3-44.8); MPV 7.3 fL (7.6-11.3); Monocytes % 6.6 % (3.3-12.3); RBC Red Blood Cell Count 5.32 M/uL (4.33-5.43)
[2018-08-04 15:27] LABS: Potassium 4.6 mmol/L (3.5-5.1)
--- NOTE | 2018-08-04 15:42 | P.HP ---
Certification for Inpatient Patient admitted to: Inpatient With expected LOS: >2 Midnights Practitioner: I am a practitioner with admitting privileges, knowledge of patient current condition, hospital course, and medical plan of care. Services: Services provided to patient in accordance with Admission requirements found in Title 42 Section 412.3 of the Code of Federal Regulations Patient History Date of Service: 08/04/18 Primary Care Provider: Dr. marrero Reason for admission: Left hallux osteomyelitis History of Present Illness: This is a 53-year-old male with history of diabetes mellitus type 2, hyperlipidemia admitted for osteomyelitis of left hallux straight from the wound Care Center. Per patient, a few months ago patient going to cut from a piece of glass being stuck in issue. Since then, patient has a hard time with wound healing and the wound got infected. He has been following Dr. Andrade in the wound healing center for wound care. He had imaging and blood work done last week, this week at wound care followup, he was admitted for a left hallux cellulitis after MRI was reviewed At the time of my exam, he was alert and oriented x3, in no acute distress and hemodynamically stable. Allergies No Known Allergies Allergy (Unverified 01/19/16 11:41) Home Medications: Insulin 70/30 NPH/Reg Human [Novolin 70/30*] 25 unit SQ BID 07/28/18 Cholecalciferol (Vitamin D3) [Vitamin D3] 10,000 unit PO DAILY 08/04/18 Lisinopril [Prinivil] 10 mg PO DAILY 08/04/18 Metformin HCl 1,000 mg PO BID 08/04/18 Thyroid 30 mg PO DAILY 08/04/18 - Past Medical/Surgical History Has patient received pneumonia vaccine in the past: Yes Diabetic: Yes -: Neuropathy -: Diabetes -: lap appy -: L wrist fx repair -: R hand fx repair -: c3-6 fused - Social History Smoking Status: Never smoker Alcohol use: No CD- Drugs: No Caffeine use: Yes Place of Residence: Home Review of Systems 10-point ROS is otherwise unremarkable Physical Examination - Vital Signs Temperature: 98.7 F Blood Pressure: 124/74 Pulse: 85 Respirations: 16 Pulse Ox (%): 91 - Physical Exam General: Alert, In no apparent distress, Oriented x3 HEENT: Atraumatic, PERRLA, Mucous membr. moist/pink, EOMI, Sclerae nonicteric Neck: Supple, 2+ carotid pulse no bruit, No LAD, Without JVD or thyroid abnormality Respiratory: Clear to auscultation bilaterally, Normal air movement Cardiovascular: Regular rate/rhythm, Normal S1 S2 Gastrointestinal: Normal bowel sounds, No tenderness Musculoskeletal: No tenderness Integumentary: Diabetic ulcer (Left toe) Neurological: Normal gait, Normal speech, Normal strength at 5/5 x4 extr, Normal tone, Normal affect - Studies Laboratory Data (last 24 hrs) 08/04/18 15:00: Sodium 132 L, Potassium 4.6, BUN 16, Creatinine 1.24, Glucose 294 H 08/04/18 15:00: WBC 8.6, Hgb 14.0, Hct 41.8, Plt Count 401 Assessment and Plan - Problems (Diagnosis) (1) Osteomyelitis Current Visit: Yes Status: Acute Qualifiers: Osteomyelitis type: other acute Osteomyelitis location: foot Laterality: left Qualified Code(s): M86.172 - Other acute osteomyelitis, left ankle and foot (2) Cellulitis Current Visit: Yes Status: Acute Qualifiers: Site of cellulitis: extremity Site of cellulitis of extremity: toe Laterality: left Qualified Code(s): L03.032 - Cellulitis of left toe (3) Hyperlipidemia Current Visit: Yes Status: Acute Qualifiers: Hyperlipidemia type: unspecified Qualified Code(s): E78.5 - Hyperlipidemia , unspecified (4) Diabetes Current Visit: No Status: Acute Qualifiers: Diabetes mellitus type: type 2 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 [facility] use Diabetes mellitus complication status: with skin complications Diabetes mellitus complication detail: with foot ulcer Qualified Code(s): E11.621 - Type 2 diabetes mellitus with foot ulcer; L97.509 - Non-pressure chronic ulcer of other part of unspecified foot with unspecified severity; Z79.4 - 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 Cellulitis of left hallux Diabetic foot ulcer Start IV vancomycin PICC line, for long-term IV antibiotics Wound healing consult Diabetes mellitus type 2 with insulin complicated by diabetic foot ulcer Will restart home Novolin 70 30, 25 units in the morning and 20 units in the morning Accu-Cheks, sliding scale insulin Will adjust as needed Patient will need strict blood sugar controls for wound healing Hyperlipidemia. Will restart home medications as tolerated DVT prophylaxis: Lovenox GI prophylaxis: None Diet: Diabetic Disposition: Admit to the floor with tele. Pending PICC line placement, symptomatic improvement. - Advance Directives Does patient have a Living Will: No Does patient have a Durable POA for Healthcare: No Time Spent Managing Pts Care (In Minutes): 55
[2018-08-04 15:44] LABS: Urine Appearance CLEAR; Urine Bilirubin NEGATIVE (NEG); Urine Blood NEGATIVE (NEG); Urine Color YELLOW; Urine Glucose 3+ (NEG); Urine Protein NEGATIVE (NEG); Urine Specific Gravity >=1.030 (1.005-1.030); Urine Urobilinogen 0.2 mg/dL (0.2-1.0)
[2018-08-04] MEDS ORDERED: D50W 25 GM/50 ML SYRINGE IV PRN (15:45)
[2018-08-04] MEDS ORDERED: GLUCAGON 1 MG/VIAL IM PRN (15:45)
[2018-08-04 15:48] LABS: Urine Microscopic Reflex NO UMIC
[2018-08-04] MEDS ORDERED: VANCOMYCIN 2.25 GM in NA CHLORIDE 0.9% 500 ML IVPB ONE (17:00)
[2018-08-04] MEDS: INSULIN -REGULAR HUMAN 50 UNIT/0.5 ML ML SQ SCH ×2 (17:53→21:23)
[2018-08-04] MEDS ORDERED: INFLUENZA VACCINE (for 3y+) 0.5 ML DOSE IMVAC ONE (19:00)
[2018-08-04] MEDS ORDERED: VANCOMYCIN 1.25 GM in NA CHLORIDE 0.9% 250 ML IVPB SCH (21:00)
[2018-08-04] MEDS: INSULIN 70/30 100 UNITS/ML SQ SCH (21:22)
[2018-08-04] MEDS: ONDANSETRON 4 MG/2 ML VIAL IV PRN (22:16)
[2018-08-05] MEDS: ONDANSETRON 4 MG/2 ML VIAL IV PRN ×3 (01:34→11:44)
[2018-08-05] MEDS: THYROID 30 MG TAB PO SCH (05:11)
[2018-08-05 07:03] LABS: Absolute Lymphocytes (CBC) 0.4 K/uL (0.7-4.9); Absolute Monocytes 0.3 K/uL (0.1-1.3); Absolute Neutrophil 9.3 K/uL (1.8-8.0); Basophils % 0.6 % (0-1.3); Eosinophils % 0.5 % (0-4.4); Hematocrit 43.9 % (39.6-49.0); Lymphocytes % 4.3 % (15.3-44.8); MPV 7.4 fL (7.6-11.3); Monocytes % 3.2 % (3.3-12.3); RBC Red Blood Cell Count 5.54 M/uL (4.33-5.43)
[2018-08-05 07:18] LABS: Albumin 2.9 g/dL (3.4-5.0); Bilirubin Total 0.5 mg/dL (0.2-1.0); Phosphorus 2.6 mg/dL (2.5-4.9); Potassium 4.6 mmol/L (3.5-5.1); Protein, Total 7.5 g/dL (6.4-8.2)
[2018-08-05 08:34] LABS: Blood Morphology Comment NOT SEEN (NOT SEEN); Platelet Estimate ADEQ
[2018-08-05] MEDS: INSULIN -REGULAR HUMAN 50 UNIT/0.5 ML ML SQ SCH ×4 (10:11→21:52)
[2018-08-05] MEDS: VITAMIN D 5,000 UNIT CAP PO SCH (10:12)
[2018-08-05] MEDS: LISINOPRIL 10 MG TAB PO SCH (10:13)
[2018-08-05] MEDS: COLLAGENASE 30 GM OINTMENT TOP SCH (10:15)
[2018-08-05] MEDS: VANCOMYCIN 1.75 GM in NA CHLORIDE 0.9% 500 ML IVPB SCH (10:17)
[2018-08-05] MEDS: INSULIN 70/30 100 UNITS/ML SQ SCH ×2 (10:28→21:52)
--- NOTE | 2018-08-05 11:23 | RAD REPORT ---
EXAM DESCRIPTION: Chest Single View CLINICAL HISTORY: 3 years Male, PICC line Placement COMPARISON: None FINDINGS: Placement of left upper extremity PICC which terminates at the cavoatrial junction. No focal lung consolidation.No pleural effusion. No pneumothorax. Cardiac and mediastinal silhouette is unremarkable. No acute osseous abnormality. IMPRESSION: Appropriately placed left upper extremity PICC. No pneumothorax. No acute cardiopulmonary disease. Electronically signed by: Elmo Vigil DO 08/05/2018 2:04 AM CDT Due to temporary technical issues with the PACS/Fluency reporting system, reports are being signed by the in house radiologist as a courtesy to ensure prompt reporting. The interpreting radiologist is f ully responsible for the content of the report.
--- NOTE | 2018-08-05 13:05 | P.CNS ---
Date of Consult: 08/05/18 Primary Care Provider: Dr. marrero Chief Complaint: Left hallux osteomyelitis History of Present Illness: Patient was seen in wound care 08/04/18 and admitted for osteomyelitis with cellulitis left hallux Allergies No Known Allergies Allergy (Unverified 01/19/16 11:41) Home Medications: Cholecalciferol (Vitamin D3) [Vitamin D3] 10,000 unit PO DAILY 08/04/18 Lisinopril [Prinivil] 10 mg PO DAILY 08/04/18 Metformin HCl 1,000 mg PO BID 08/04/18 Thyroid 30 mg PO DAILY 08/04/18 Insulin 70/30 NPH/Reg Human [Novolin 70/30*] 20 unit SQ BEDTIME 08/05/18 Insulin 70/30 NPH/Reg Human [Novolin 70/30*] 25 unit SQ BREAKFAST 08/05/18 - Past Medical/Surgical History Diabetic: Yes -: Neuropathy -: Diabetes -: lap appy -: L wrist fx repair -: R hand fx repair -: c3-6 fused - Social History Smoking Status: Unknown if ever smoked Alcohol use: No CD- Drugs: No Caffeine use: Yes Place of Residence: Home Review of Systems 10-point ROS is otherwise unremarkable Physical Examination Temp Pulse Resp BP Pulse Ox 98.7 F 63 16 118/63 95 08/05/18 08:00 08/05/18 10:13 08/05/18 08:00 08/05/18 10:13 08/05/18 08:00 General: Alert, In no apparent distress, Oriented x3 Cardiovascular: No edema, Normal pulses Capillary refill: <2 Seconds Musculoskeletal: No clubbing, No swelling, No contractures, No erythema, No tenderness, No warmth Integumentary: Diabetic ulcer (ulceration left hallux is improved with decreased erythema and demarcation of the necrotic tissue being present. No purulence noted. ) Neurological: Abnormal sensation Laboratory Data (last 24 hrs) 08/05/18 06:10: Sodium 135 L, Potassium 4.6, BUN 18, Creatinine 1.04, Glucose 282 H, Phosphorus 2.6, Magnesium 2.0, Total Bilirubin 0.5, AST 13 L, ALT 15, Alkaline Phosphatase 88 08/05/18 06:10: WBC 10.2 D, Hgb 14.6, Hct 43.9, Plt Count 332 08/04/18 15:00: Sodium 132 L, Potassium 4.6, BUN 16, Creatinine 1.24, Glucose 294 H 08/04/18 15:00: WBC 8.6, Hgb 14.0, Hct 41.8, Plt Count 401 - Problems (1) Diabetic foot ulcer Current Visit: No Status: Acute Qualifiers: Diabetic foot ulcer location: toe Diabetes mellitus type: type 2 Laterality: left Non-pressure ulcer stage: with bone involvement without evidence of necrosis Qualified Code(s): E11.621 - Type 2 diabetes mellitus with foot ulcer; L97.526 - Non-pressure chronic ulcer of other part of left foot with bone involvement without evidence of necrosis Conclusions/Impression: Continue santyl to wound daily and Vancomycin via iv. Will consult Dr. Ryan for evaluation from infectious disease standpoint Will consult social media senior associate for manager long term care iv antibiotic therapy and hyperbarics Time Spent Managing Pts care (In Minutes): 30
[2018-08-05] MEDS ORDERED: CEFEPIME/SWI 2gm 2 GM/20 ML SYR IVP SCH (15:45)
[2018-08-05] MEDS: PIPER/TAZO/NS 3.375gm 3.375 GM/100 ML BAG IVPB SCH (16:57)
--- NOTE | 2018-08-05 20:00 | PN ---
Date of Progress Note: 08/05/2018 History: The patient is seen and examined. Chart reviewed and case discussed with RN. The patient, accompanied by his , does report some pain in his foot. Medications: List reviewed. Physical Examination: Vital Signs: Temperature 98.7, heart rate 76, blood pressure 118/63, respirations 16, O2 95% on room air. General: Awake, alert, oriented x3. Somewhat ill-appearing male. CV: S1, S2. Regular rate and rhythm. Peripheral pulses present. Respiratory: Moving air well bilaterally. No wheezing or stridor. Gastrointestinal: Abdomen is soft, nontender, nondistended. Positive bowel sounds. Extremities: No clubbing, cyanosis, or edema. Neuro: Cranial nerves 2-12 intact grossly. No focal neurological deficit. Speech is normal. Skin: Left great toe wound with dry gangrene, foul smelling odor. Laboratory Data: Sodium 135, potassium 4.6, chloride 101, CO2 26, BUN 18, creatinine 1.04, glucose 2 82, calcium 8.2, phosphorus 2.6, magnesium 2. WBC 10.2, H and H 14.6 and 43.9, platelets 332, neutro phils 91%. Blood cultures, no growth to date. MRI of the foot on 07/31/2018 shows osteomyelitis inv olving the first proximal and first distal phalanx. Pathologic fracture suspected within the distal aspect of the first proximal phalanx. Assessment And Plan: A 53-year-old male with: 1.Osteomyelitis of the left foot. MRI shows osteomyelitis of the first proximal and first distal ph alanx. 2.Fracture of the distal aspect of the first proximal phalanx, pathologic, secondary to above. 3.Left lower extremity cellulitis. We will continue IV antibiotics. The patient has been undergoin g wound care and has been seeing Dr. Andrade in the past. We will consult Dr. Andrade for any surgical d ebridement. For now, the patient will need long-term IV antibiotics. We will consult Infectious Dis ease Dr. Ryan. 4.Hyperlipidemia. We will continue home medications. 5.Diabetes mellitus type 2 with long-term use of insulin with skin complications with foot ulcer. W e will continue sliding scale insulin and monitor blood glucose levels. 6.Hypocalcemia. We will replace and monitor. Plan: Obtain PICC line. ID consultation. direct care worker to refer to SNF versus LTAC. /MARIOL Voice ID: [id number] Report ID: [id number]
[2018-08-05] MEDS ORDERED: CEFEPIME 2 GM in NA CHLORIDE 0.9% 100 ML IV SCH (21:00)
--- NOTE | 2018-08-05 21:30 | CON ---
History Of Present Illness: The patient is a 53-year-old male who is here with osteomyelitis and inf ected ulcer of his left big toe. The patient denies any headache, nausea, vomiting, chest pain, abdo florence pain, constipation, or diarrhea. It all started after he got a cut on his foot. The patient a lso has significant history of diabetes mellitus and hypertension, neuropathy. Past Surgical History: Wrist fracture repairs. Social History: Nonsmoker, nondrinker. Family History: Noncontributory. Medications: For hypothyroidism and cholesterol and diabetes mellitus. Allergies: NO KNOWN DRUG ALLERGIES. Review of Systems: A 10-point review was performed. Physical Examination: General: This is a 53-year-old male lying in bed, not in any acute cardiopulmonary distress. Vital S igns: Temperature 97.6, pulse 77, respirations 16, blood pressure 121/56. HEENT: Unremarkable. Neck: Supple. Lungs: Clear to auscultation. Heart: S1, S2. Regular. Abdomen: Soft, nontender. Bowel sounds present. Extremities: No edema. Left foot big toe large ulcer 2.2 x 3 cm with wet gangrene with foul smell n oted. Laboratory Data: Shows WBC 10.2, platelets are 332, hemoglobin 14.6. Chemistry shows sodium 135, po tassium 4.6, chloride 101, bicarb 26, BUN 18, creatinine 1, glucose 282. Assessment And Plan: Left foot diabetic foot ulcer to the big toe with osteomyelitis and wet gangren ous changes. We will recommend Hydrofera Blue and possible surgical debridement if needed. Also, st art the patient on vancomycin and Zosyn. Hemoglobin A1c, Lactinex. Recommend the patient for hyperb [facility] and possible transfer to [facility]. NF/MODL Voice ID: [id number] Report ID: [id number]
[2018-08-05] MEDS: LACTOBACILLUS/ACIDOPHILUS TAB PO SCH (21:50)
[2018-08-06] MEDS: PIPER/TAZO/NS 3.375gm 3.375 GM/100 ML BAG IVPB SCH ×3 (00:47→17:07)
[2018-08-06 05:03] LABS: Absolute Lymphocytes (CBC) 1.5 K/uL (0.7-4.9); Absolute Monocytes 0.5 K/uL (0.1-1.3); Basophils % 0.7 % (0-1.3); Eosinophils % 2.6 % (0-4.4); Hematocrit 37.8 % (39.6-49.0); Lymphocytes % 23.7 % (15.3-44.8); MPV 7.6 fL (7.6-11.3); Monocytes % 7.9 % (3.3-12.3)
[2018-08-06 05:27] LABS: Albumin 2.8 g/dL (3.4-5.0); Bilirubin Total 0.3 mg/dL (0.2-1.0); Potassium 3.9 mmol/L (3.5-5.1); Protein, Total 6.8 g/dL (6.4-8.2)
[2018-08-06] MEDS ORDERED: POTASSIUM CL SA 10 MEQ TAB PO ONE (05:33)
[2018-08-06] MEDS: THYROID 30 MG TAB PO SCH (06:22)
[2018-08-06] MEDS: VANCOMYCIN 1.75 GM in NA CHLORIDE 0.9% 500 ML IVPB SCH ×2 (06:23→17:08)
[2018-08-06] MEDS: ONDANSETRON 4 MG/2 ML VIAL IV PRN (06:27)
[2018-08-06] MEDS: INSULIN -REGULAR HUMAN 50 UNIT/0.5 ML ML SQ SCH ×4 (09:33→20:49)
[2018-08-06] MEDS: INSULIN 70/30 100 UNITS/ML SQ SCH ×2 (09:34→20:49)
[2018-08-06] MEDS: LISINOPRIL 10 MG TAB PO SCH (09:35)
[2018-08-06] MEDS: VITAMIN D 5,000 UNIT CAP PO SCH (09:36)
[2018-08-06] MEDS: COLLAGENASE 30 GM OINTMENT TOP SCH (09:36)
[2018-08-06] MEDS: LACTOBACILLUS/ACIDOPHILUS TAB PO SCH ×3 (09:36→20:49)
--- NOTE | 2018-08-06 11:43 | P.PN ---
Subjective Date of Service: 08/06/18 Primary Care Provider: Dr. marrero Chief Complaint: Left hallux osteomyelitis Subjective: Improving, Doing well Review of Systems 10-point ROS is otherwise unremarkable Physical Examination - Vital Signs Temperature: 97.2 F Blood Pressure: 123/75 Pulse: 67 Respirations: 14 Pulse Ox (%): 97 - Physical Exam General: Alert, In no apparent distress, Oriented x3 Cardiovascular: No edema, Normal pulses Capillary refill: <2 Seconds Musculoskeletal: No clubbing, No swelling, No contractures, No erythema, No tenderness, No warmth Integumentary: Diabetic ulcer (Left hallux is improving with decreased edema and erythema. Wound has demarcated. Bedside, excisional debridement performed to muscular level to bleeding base. Foul odor noted, however after debridement was improved. No ascending cellulitis) Neurological: Abnormal sensation - Studies Laboratory Data (last 24 hrs) 08/06/18 04:10: Sodium 134 L, Potassium 3.9, BUN 20 H, Creatinine 1.08, Glucose 232 H, Total Bilirubin 0.3, AST 10 L, ALT 15, Alkaline Phosphatase 77 08/06/18 04:10: WBC 6.2 D, Hgb 12.8 L, Hct 37.8 L, Plt Count 352 Assessment And Plan - Current Problems (Diagnosis) (1) Diabetic foot ulcer Current Visit: No Status: Acute Qualifiers: Diabetic foot ulcer location: toe Diabetes mellitus type: type 2 Laterality: left Non-pressure ulcer stage: with bone involvement without evidence of necrosis Qualified Code(s): E11.621 - Type 2 diabetes mellitus with foot ulcer; L97.526 - Non-pressure chronic ulcer of other part of left foot with bone involvement without evidence of necrosis - Plan 1. continue santyl to wound daily 2. Agree with transfer to LTAC for iv antibiotics and hyperbarics Discharge Plan: LTAC
--- NOTE | 2018-08-06 15:44 | PN ---
Subjective: The patient is lying in bed. Surgical team is by the bedside for debridement. The hay ent denies any headache, nausea, vomiting, chest pain, abdominal pain, constipation, or diarrhea. Objective: Vital Signs: Temperature 97.2, pulse 67, respiration 14, blood pressure 123/75. No new changes since yesterday in examination. Laboratory Data: WBC 6.2, hemoglobin 12.8, platelets 352. Chemistry shows sodium 134, potassium 3.9 , chloride 99, bicarb 29, BUN 20, creatinine 1.08, glucose is 232. Hemoglobin A1c is 12.6, albumin i s 2.8. Assessment And Plan: Diabetic foot ulcer to the left great toe with osteomyelitis on MRI as per surg ical team. The patient also has uncontrolled diabetes mellitus with hemoglobin A1c of 12.6. We will continue IV antibiotic. Better control of his sugars. Consider hyperbaric and possible transfer to [facility] for further evaluation. NF/MODL Voice ID: [id number] Report ID: [id number]
--- NOTE | 2018-08-06 17:35 | PN ---
Date of Progress Note: 08/06/2018 Subjective: The patient seen and examined, chart reviewed and case discussed with RN and Dr. Andrade. The patient states he is doing better. He had a bedside debridement by Dr. Andrade. The patient was seen by Dr. Ryan yesterday. The patient agreeable to [facility] for IV antibiotics and hyperbari c. Medications: List reviewed. Objective: Vital Signs: Temperature 97.1, heart rate 65, blood pressure 112/67, respirations 16, O2 98% on room air. General: Awake, alert oriented x3, not in any acute distress. CV: S1, S2. Regular rate and rhythm. Peripheral pulses present. RESPIRATORY: Moving air well bilaterally. No wheezing. Gastrointestinal: Abdomen is soft, nontender, nondistended. Positive bowel sounds. Extremities: No clubbing, cyanosis, edema. Neurologic: Nonfocal. SKIN: Left great toe has black eschar and ulceration. Some minimal foul odor and drainage. Laboratory Data: Sodium 134, potassium 3.9, chloride 99, CO2 29, BUN 20, creatinine 1.08, glucose 23 2. Hemoglobin A1c is 12.6%. Calcium 8.2. WBC 6.2, H and H 12.8 and 37.8, platelets 352, neutrophil s 65%. Blood cultures, no growth to date. Assessment: A 53-year-old male with: 1.Osteomyelitis of the left foot 1st toe, 1st proximal and 1st distal phalanx. We will continue wit h broad-spectrum intravenous antibiotics. Continue with vancomycin and Zosyn. Appreciate Infectious Disease consultation. The patient had bedside debridement by Dr. Andrade. Blood cultures are showing no growth to date. Wound cultures apparently pending. 2.Fracture of the distal aspect of the 1st proximal phalanx, pathologic, secondary to osteomyelitis. The patient will need fracture boot when ambulating. 3.Left lower extremity cellulitis secondary to above. We will continue antibiotics for now. 4.Hyperlipidemia, mixed. Continue home medications. 5.Diabetes mellitus type 2 with long-term use of insulin with skin complications and foot ulcer, unc ontrolled. Hemoglobin A1c is 12.6%. We will adjust sliding scale insulin. Add long-acting insulin. Monitor Accu-Cheks. 6.Hypocalcemia, improving. Corrected calcium is normal. The patient's albumin is 2.8. 7.Deep vein thrombosis prophylaxis, addressed. No chemical anticoagulation due to recent debridemen t. Plan: Refer to [facility] for long-term IV antibiotics and hyperbarics. PICC line has already bee n placed. Discharge once accepted. /LARISSA Voice ID: [id number] Report ID: [id number]
[2018-08-07] MEDS: PIPER/TAZO/NS 3.375gm 3.375 GM/100 ML BAG IVPB SCH ×3 (01:00→17:20)
[2018-08-07 05:39] LABS: Potassium 4.4 mmol/L (3.5-5.1)
[2018-08-07] MEDS: VANCOMYCIN 1.75 GM in NA CHLORIDE 0.9% 500 ML IVPB SCH ×2 (05:50→18:57)
[2018-08-07] MEDS: THYROID 30 MG TAB PO SCH (05:50)
[2018-08-07] MEDS: INSULIN -REGULAR HUMAN 50 UNIT/0.5 ML ML SQ SCH ×4 (07:30→21:27)
[2018-08-07] MEDS: LISINOPRIL 10 MG TAB PO SCH (09:03)
[2018-08-07] MEDS: INSULIN 70/30 100 UNITS/ML SQ SCH ×2 (09:03→21:26)
[2018-08-07] MEDS: COLLAGENASE 30 GM OINTMENT TOP SCH (09:03)
[2018-08-07] MEDS: LACTOBACILLUS/ACIDOPHILUS TAB PO SCH ×3 (09:03→21:27)
[2018-08-07] MEDS: VITAMIN D 5,000 UNIT CAP PO SCH (09:03)
--- NOTE | 2018-08-07 15:12 | PN ---
Date of Progress Note: 08/07/2018 Subjective: Patient is seen and examined. Chart reviewed and case discussed with RN. Patient state s he is doing well. No acute events overnight. Medications: List reviewed. Physical Examination: Vital Signs: Temperature 97.1, heart rate 63, blood pressure 128/71, respirations 15, O2 95% on room air. General: Awake, alert, oriented x3, ill-appearing male. CV: S1, S2. Regular rate and rhythm. Peripheral pulses present. Respiratory: Moving air well bilaterally. No wheezing or stridor. No use of accessory muscles. Gastrointestinal: Abdomen is soft, nontender, nondistended. Positive bowel sounds. No guarding or rigidity. Extremities: No clubbing, cyanosis, or edema. Neurologic: Nonfocal. Skin: Left foot, first toe, status post debridement. Black eschar has been debrided. Some drainage is present. Laboratory Data: Sodium 137, potassium 4.4, chloride 103, CO2 30, BUN 16, creatinine 0.93, glucose 1 63, calcium 8.2. Blood cultures, no growth to date. Assessment And Plan: A 53-year-old male with, 1.Osteomyelitis of the left first proximal and first distal phalanx. We will continue with IV antib iotics, vanc and Zosyn. Infectious Disease on board. The patient will need long-term IV antibiotics for 6 weeks and wound care at [facility] along with hyperbarics. The patient had some debridement by Dr. Andrade. We will obtain wound cultures. 2.Fracture of the distal aspect of the first proximal phalanx pathologic secondary to osteomyelitis, fracture boot when ambulating. 3.Left lower extremity cellulitis secondary to above, improving. 4.Hyperlipidemia, stable. 5.Diabetes mellitus type 2 with long-term use of insulin with skin complications and foot ulcer, unc ontrolled. Hemoglobin A1c is 12.6%. Sliding scale insulin was adjusted. The patient's blood glucos e levels still in the 200s. We will adjust long-acting insulin. The patient is on 70/30 25 units b. i.d. 6.Hypocalcemia, improving. Due to hypocalcemia corrected calcium is normal after taking into accoun t patient's albumin level. 7.Deep venous thrombosis prophylaxis. We will add Lovenox. The patient is now 24 hours post proced ure. Plan discharge to LT for long-term IV antibiotics, wound care, and hyperbaric oxygen therapy once accepted. /LARISSA Voice ID: [id number] Report ID: [id number]
[2018-08-07] MEDS ORDERED: ENOXAPARIN 40 MG/0.4 ML SQ SCH (17:00)
[2018-08-08] MEDS: PIPER/TAZO/NS 3.375gm 3.375 GM/100 ML BAG IVPB SCH ×2 (01:02→09:48)
[2018-08-08] MEDS: THYROID 30 MG TAB PO SCH (05:15)
[2018-08-08] MEDS: VANCOMYCIN 1.75 GM in NA CHLORIDE 0.9% 500 ML IVPB SCH (05:16)
[2018-08-08 05:27] LABS: Potassium 4.2 mmol/L (3.5-5.1)
[2018-08-08] MEDS: INSULIN -REGULAR HUMAN 50 UNIT/0.5 ML ML SQ SCH ×2 (07:30→11:30)
[2018-08-08 09:37] VITALS: O2SAT 96
[2018-08-08] MEDS: VITAMIN D 5,000 UNIT CAP PO SCH (09:49)
[2018-08-08] MEDS: LISINOPRIL 10 MG TAB PO SCH (09:49)
[2018-08-08] MEDS: INSULIN 70/30 100 UNITS/ML SQ SCH (09:50)
[2018-08-08] MEDS: LACTOBACILLUS/ACIDOPHILUS TAB PO SCH ×2 (09:50→13:03)
[2018-08-08] MEDS: COLLAGENASE 30 GM OINTMENT TOP SCH (09:52)
--- NOTE | 2018-08-08 13:01 | PN ---
Subjective: The patient lying in bed. Denies any headache, nausea, vomiting, chest pain, abdominal pain, constipation, or diarrhea. The patient had debridement done to his left foot big toe. Denies any other problems. Objective: Vital Signs: Temperature 97.5, pulse 95, respirations 18, blood pressure 119/93. Lungs: Basal crackles. Heart: S1 and S2, regular. Abdomen: Soft and nontender. Bowel sounds present. Extremities: No edema. Left foot wound noted. Laboratory Data: WBC 6.2, hemoglobin 12.8, platelets are 352. Blood cultures are negative. Wound c ultures are pending. Assessment And Plan: Left foot big toe osteomyelitis and diabetic foot ulcer. Continue IV antibioti cs. The patient to be transferred to LTAC. YOANA/LARISSA Voice ID: [id number] Report ID: [id number]
[2018-08-08 13:45] VITALS: BP 135/65; TEMP 97.6
--- NOTE | 2018-08-09 01:32 | DS ---
Date of Discharge: 08/08/2018 Consultants: Dr. Ryan with Infectious Disease, Dr. Andrade with Podiatry. Procedures: Bedside debridement by Dr. Andrade of the left great toe. Discharge Diagnoses: 1. Osteomyelitis of the left foot, first toe, first proximal phalanx and distal phalanx. 2. Fracture of distal aspect of the first proximal phalanx, pathologic, secondary to osteomyelitis. 3. Left lower extremity cellulitis, improved. 4. Hyperlipidemia, mixed. 5. Diabetes mellitus type 2 with long-term use of insulin with skin complications and foot ulcer, uncontrolled. Hemoglobin A1c 12.6%. 6. Hypocalcemia. Hospital Course: The patient is a 53-year-old male, who comes in with left hallux osteomyelitis from [facility]. The patient had MRI done as an outpatient, which showed osteomyelitis. The patient was sent by Dr. Andrade. The patient was started on broad-spectrum IV antibiotics. Infectious Disease and Podiatry, Dr. Andrade were consulted. The patient's white count was stable. He was not septic. The patient did have some hyponatremia, which was corrected. His hemoglobin A1c was 12.6%. The patient was started on insulin. His cultures did not show any growth, remain negative to date. The patient was then set up for IV antibiotics, hyperbaric oxygen therapy and wound care at [facility] in [facility]. The patient was then doing well. He had bedside debridement and wound appeared better. The patient was then accepted to [facility] and discharged in a stable condition. Activity: Fracture boot while ambulating on the left foot. Diet: Diabetic diet. Followup: Follow up with PCP in 1-2 weeks. Follow up with Infectious Disease, Dr. Ryan in 1 week. Follow up with Dr. Andrade in 2 weeks. Return to ER for worsening condition. Medications: As per medication reconciliation list. The patient will be on vancomycin and Zosyn for 6 weeks. The patient to have weekly CBC, CMP, ESR, and CRP. The patient to have renal function monitored closely, adjust dose renally. The patient to have repeat cultures once antibiotics completed. Physical Examination: General: Awake, alert, oriented, no acute distress. CV: S1, S2. No murmurs. Respiratory: Moving air well bilaterally. Abdomen: Soft, nontender, nondistended. Positive bowel sounds. Extremities: No clubbing, cyanosis, edema. Neurologic: Nonfocal. Skin: Left foot bandage. No signs of drainage. Total time spent discharging the patient was 36 minutes. ALISON Voice ID: [id number] Report ID: [id number]
== END 2018-08-08 15:35 | DRG 501 ==
LOC: 2ND 11:40
PROVIDERS: ADMIT Family Medicine; ATTEND Family Medicine
PROC: 02HV33Z Insertion of Infusion Device into Superior Vena Cava, Percutaneous Approach (ICD-10-PCS; 2018-08-04)
PROC: B548ZZA Ultrasonography of Superior Vena Cava, Guidance (ICD-10-PCS; 2018-08-04)
PROC: 0KBW0ZZ Excision of Left Foot Muscle, Open Approach (ICD-10-PCS; principal; 2018-08-06)
DX: M86.172 Other acute osteomyelitis, left ankle and foot (principal); L97.526 Non-pressure chronic ulcer of other part of left foot with bone involvement without evidence of necrosis; M84.478A Pathological fracture, left toe(s), initial encounter for fracture; L03.032 Cellulitis of left toe; E11.621 Type 2 diabetes mellitus with foot ulcer; Z79.4 Long term (current) use of insulin; E83.51 Hypocalcemia; I10 Essential (primary) hypertension; E11.42 Type 2 diabetes mellitus with diabetic polyneuropathy; E11.65 Type 2 diabetes mellitus with hyperglycemia; E78.2 Mixed hyperlipidemia
CPT/HCPCS: 36415; 71045; 80048; 80053; 80202; 81003; 82962; 83036; 83735; 84100; 85025; 87040; 87070; 87077; 87186; 87205; 94760; G0008; J0692; J1650; J2405; J2543; J3590; Q2035

== ENCOUNTER 2018-10-18 14:54 | Emergency (ER) | payer BC ==
--- OUTSIDE RECORDS SUMMARY | 2018-10-18 14:56 | XMS REPORT | Clinical Summary ---
:1965 Author Organization [facility] Address [address] [place] [address] Care Team Providers Name Role Phone Provider, Unknown Primary Care Provider Unavailable Allergies No Known Allergies Medications Medication Sig [...] 01/09/2014 SHINGLES VACCINES (#1) 01/09/2014 INFLUENZA VACCINE 12/18/2018 Results Not on fileafter 10/17/2017 Advance Directives Patient has advance care planning documents on file. For more information, please contact:[address] [address]
[2018-10-18] MEDS ORDERED: NA CHLORIDE 0.9% 1,000 ML ONE ×2 (15:42→16:46)
--- NOTE | 2018-10-18 16:06 | RAD REPORT ---
EXAM DESCRIPTION: RAD - Chest Single View - 10/18/2018 3:59 pm CLINICAL HISTORY: dizziness Chest pain. COMPARISON: Chest Single View dated 08/05/2018; Abdomen 1 View (KUB) dated 01/17/2016; Chest Single Vi ew dated 01/17/2016 FINDINGS: Portable technique limits examination quality. The lungs are grossly clear. The heart is normal in size. No displaced fractures. IMPRESSION: No acute intrathoracic process suspected.
--- NOTE | 2018-10-18 16:06 | RAD REPORT ---
EXAM DESCRIPTION: CT - Head Brain Wo Cont - 10/18/2018 3:49 pm CLINICAL HISTORY: DIZZINESS Headache, drowsiness COMPARISON: No comparisons TECHNIQUE: All CT scans are performed using dose optimization technique as appropriate and may inclu de automated exposure control or mA/KV adjustment according to patient size. FINDINGS: No intracranial hemorrhage, hydrocephalus or extra-axial fluid collection.No areas of brai n edema or evidence of midline shift. The paranasal sinuses and mastoids are clear. The calvarium is intact. IMPRESSION: No acute intracranial abnormality.
[2018-10-18 16:09] LABS: Absolute Lymphocytes (CBC) 1.7 K/uL (0.7-4.9); Absolute Monocytes 0.7 K/uL (0.1-1.3); Absolute Neutrophil 6.3 K/uL (1.8-8.0); Basophils % 0.4 % (0-1.3); Eosinophils % 1.4 % (0-4.4); Hematocrit 41.9 % (39.6-49.0); Lymphocytes % 19.2 % (15.3-44.8); MPV 8.6 fL (7.6-11.3); Monocytes % 7.9 % (3.3-12.3); Protime INR 1.12; RBC Red Blood Cell Count 5.22 M/uL (4.33-5.43)
[2018-10-18 16:25] LABS: ALT/SGPT 40 U/L (12-78); AST/SGOT 29 U/L (15-37); Albumin 4.4 g/dL (3.4-5.0); Alkaline Phosphatase 74 U/L (45-117); BUN Blood Urea Nitrogen 40 mg/dL (7-18); Bicarbonate 25 mmol/L (21-32); Bilirubin Direct < 0.1 mg/dL (0-0.2); Bilirubin Total 0.4 mg/dL (0.2-1.0); Glucose Level 141 mg/dL (74-106); Magnesium 1.6 mg/dL (1.8-2.4); NT PRO-BNP 23 pg/mL (<125); Potassium 4.6 mmol/L (3.5-5.1); Protein, Total 8.4 g/dL (6.4-8.2); Sodium Level 138 mmol/L (136-145); Troponin (Emerg Dept Use Only) < 0.02 ng/mL (0.0-0.045)
--- NOTE | 2018-10-18 17:49 | ER ---
Nurse's Notes [facility] Name: Zeke Mackay Sr Age: 53 yrs Sex: Male : 1965 Arrival Date: 10/18/2018 Time: 14:55 Bed 5 Private MD: Diagnosis: Dehydration;Hypotension Presentation: 10/18 15:01 Presenting complaint: Patient states: has had blurry vision, dizziness, intermittent sv diaphoresis, generalized weakness x 3-4 days. Transition of care: patient was not received from another setting of care. Onset of symptoms was September 2018. Care prior to arrival: None. 15:01 Method Of Arrival: Ambulatory sv 15:01 Acuity: RICKEY 2 sv 15:07 Note Pt reports he recently had blockages removed from his RLE by his vascular surgeon sv with no stent placement, no complications noted. 18:06 Risk Assessment: Do you want to hurt yourself or someone else? Patient reports no la1 desire to harm self or others. Initial Sepsis Screen: Does the patient meet any 2 criteria? No. Patient's initial sepsis screen is negative. Does the patient have a suspected source of infection? No. Patient's initial sepsis screen is negative. Triage Assessment: 15:01 General: Appears in no apparent distress. uncomfortable, Behavior is cooperative, sv appropriate for age. Pain: Denies pain. Neuro: Level of Consciousness is awake, alert, obeys commands, Oriented to person, place, time, situation, Moves all extremities. Full function Gait is steady, Speech is normal, Facial symmetry appears normal, Reports blurred vision dizziness, weakness Denies headache. Respiratory: Respiratory effort is even, unlabored, Respiratory pattern is regular, symmetrical. Derm: Skin is clammy, Skin temperature is cool. 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 - Social history:: Smoking status: Patient/guardian denies using tobacco. - Ebola Screening: : No symptoms or risks identified at this time. Screenin:20 Abuse screen: Denies threats or abuse. Nutritional screening: No deficits noted. la1 Tuberculosis screening: No symptoms or risk factors identified. Fall Risk None identified. Assessment: 15:20 General: Appears in no apparent distress. Behavior is calm, cooperative. Pain: Denies la1 pain. Neuro: Level of Consciousness is awake, alert, obeys commands, Oriented to person, place, time, situation. Neuro: Moves all extremities. Full function Gait is steady, Speech is normal, Facial symmetry appears normal. Cardiovascular: Capillary refill < 3 seconds Patient's skin is warm and dry. Cardiovascular: Heart tones S1 S2 present Chest pain is denied. Respiratory: Airway is patent Respiratory effort is even, unlabored, Respiratory pattern is regular, symmetrical, Breath sounds are clear bilaterally. GI: No signs and/or symptoms were reported involving the gastrointestinal system. : No signs and/or symptoms were reported regarding the genitourinary system. Vital Signs: 15:01 BP 94 / 65; Pulse 78; Resp 16; Pulse Ox 99% ; sv 15:44 BP 81 / 60 Supine; Pulse 72; la1 15:45 BP 87 / 63 Sitting; Pulse 70; la1 15:45 BP 84 / 51; Pulse 90; la1 16:32 BP 126 / 59; Pulse 85; Resp 16; Temp 97.3; Pulse Ox 98% on R/A; la1 17:39 BP 131 / 72; Pulse 74; Resp 16; Pulse Ox 98% on R/A; la1 ED Course: 14:55 Patient arrived in ED. as 15:02 Triage completed. sv 15:02 Arm band placed on. sv 15:03 You Carson RN is Primary Nurse. la1 15:04 Mohan Remy NP is PHCP. pm1 15:04 Pratik Solorzano MD is Attending Physician. pm1 15:21 Call light in reach. la1 15:[address] mw3 15:44 No provider procedures requiring assistance completed. Inserted saline lock: 18 gauge la1 in right forearm, using aseptic technique. Blood collected. 15:49 CT completed. Patient tolerated procedure well. Patient moved back from CT. mw3 15:54 CT Head Brain wo Cont In Process Unspecified. EDMS 15:58 XRAY Chest (1 view) In Process Unspecified. EDMS 17:49 Notified Nurse Practitioner and/or Physician Outsole Caser of pt ambulates well. em1 18:05 IV discontinued, intact, bleeding controlled, No redness/swelling at site. Pressure la1 dressing applied. Administered Medications: 16:08 Drug: NS 0.9% 1000 ml Route: IV; Rate: 1000 ml; Site: right forearm; la1 17:56 Follow up: IV Status: Completed infusion la1 16:32 Drug: NS 0.9% 1000 ml Route: IV; Rate: 1000 ml; Site: right forearm; la1 17:57 Follow up: IV Status: Completed infusion la1 Outcome: 17:49 Discharge ordered by MD. pm1 18:05 Discharged to home ambulatory. la1 18:05 Condition: stable 18:05 Discharge instructions given to patient, Instructed on discharge instructions, follow up and referral plans. medication usage, Demonstrated understanding of instructions, follow-up care. 18:06 Patient left the ED. la1 Signatures: Dispatcher [employer] EDMaria Eugenia Deleon RN RN sv Martinez, Amelia as Martinez, Eric em1 You Carson RN RN la1 Mohan Remy NP D[employer]USSER pm1 Sonia Palencia mw3
--- NOTE | 2018-10-18 17:49 | EDPHYS ---
Physician Documentation [facility] Name: Zeke Mackay Sr Age: 53 yrs Sex: Male : 1965 Arrival Date: 10/18/2018 Time: 14:55 Bed 5 Private MD: ED Physician Pratik Solorzano HPI: 10/18 16:35 This 53 yrs old Male presents to ER via Ambulatory with complaints of Blurred pm1 Vision, Dizziness. 16:35 The patient's problem is reported as weakness, that is generalized, blurred vision and pm1 dizziness. Onset: The symptoms/episode began/occurred 4 day(s) ago. Context: occurred at home. The symptoms are alleviated by sitting down. The symptoms are aggravated by changing position. Associated signs and symptoms: Pertinent positives: blurred vision, dizziness, Pertinent negatives: abdominal pain, chest pain, numbness, seizure, shortness of breath, tingling, focal weakness. Severity of symptoms: in the emergency department the symptoms have resolved Pain is currently a 0 / 10. Patient's baseline: Neuro: alert and fully oriented, Motor: no deficits, Ambulation: walks without assistance, Speech: normal. The patient has not experienced similar symptoms in the past. The patient has not recently seen a physician. 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 - Social history:: Smoking status: Patient/guardian denies using tobacco. - Ebola Screening: : No symptoms or risks identified at this time. ROS: 16:35 Constitutional: Negative for fever, chills, and weight loss, ENT: Negative for injury, pm1 pain, and discharge, Neck: Negative for injury, pain, and swelling, Cardiovascular: Negative for chest pain, palpitations, and edema, Respiratory: Negative for shortness of breath, cough, wheezing, and pleuritic chest pain, Abdomen/GI: Negative for abdominal pain, nausea, vomiting, diarrhea, and constipation, Back: Negative for injury and pain, : Negative for injury, bleeding, discharge, and swelling, MS/Extremity: Negative for injury and deformity, Skin: Negative for injury, rash, and discoloration. 16:35 Eyes: Positive for blurry vision, Negative for discharge, pain, swelling, tearing, vision loss. 16:35 Neuro: Positive for dizziness, weakness. Exam: 16:35 Radiologist reports: CT brain: No acute abnormality pm1 16:35 Neuro: Orientation: is normal, Mentation: is normal, Cranial nerves: CN II- XII are normal as tested, Cerebellar function: normal finger to nose testing, Motor: is normal, moves all fours, Sensation: is normal, no obvious gross deficits. 16:37 Constitutional: This is a well developed, well nourished patient who is awake, alert, pm1 and in no acute distress. Head/Face: Normocephalic, atraumatic. Eyes: Pupils equal round and reactive to light, extra-ocular motions intact. Lids and lashes normal. Conjunctiva and sclera are non-icteric and not injected. Cornea within normal limits. Periorbital areas with no swelling, redness, or edema. ENT: Nares patent. No nasal discharge, no septal abnormalities noted. Tympanic membranes are normal and external auditory canals are clear. Oropharynx with no redness, swelling, or masses, exudates, or evidence of obstruction, uvula midline. Mucous membranes moist. Neck: Trachea midline, no thyromegaly or masses palpated, and no cervical lymphadenopathy. Supple, full range of motion without nuchal rigidity, or vertebral point tenderness. No Meningismus. Chest/axilla: Normal chest wall appearance and motion. Nontender with no deformity. No lesions are appreciated. Cardiovascular: Regular rate and rhythm with a normal S1 and S2. No gallops, murmurs, or rubs. Normal PMI, no JVD. No pulse deficits. Respiratory: Lungs have equal breath sounds bilaterally, clear to auscultation and percussion. No rales, rhonchi or wheezes noted. No increased work of breathing, no retractions or nasal flaring. Abdomen/GI: Soft, non-tender, with normal bowel sounds. No distension or tympany. No guarding or rebound. No evidence of tenderness throughout. Back: No spinal tenderness. No costovertebral tenderness. Full range of motion. Skin: Warm, dry with normal turgor. Normal color with no rashes, no lesions, and no evidence of cellulitis. MS/ Extremity: Pulses equal, no cyanosis. Neurovascular intact. Full, normal range of motion. 18:06 Neuro: Gait: is steady, at a normal pace, without difficulty. pm1 Vital Signs: 15:01 BP 94 / 65; Pulse 78; Resp 16; Pulse Ox 99% ; sv 15:44 BP 81 / 60 Supine; Pulse 72; la1 15:45 BP 87 / 63 Sitting; Pulse 70; la1 15:45 BP 84 / 51; Pulse 90; la1 16:32 BP 126 / 59; Pulse 85; Resp 16; Temp 97.3; Pulse Ox 98% on R/A; la1 17:39 BP 131 / 72; Pulse 74; Resp 16; Pulse Ox 98% on R/A; la1 MDM: 15:12 Patient medically screened. pm1 17:48 Data reviewed: vital signs. Data interpreted: Pulse oximetry: on room air is 98 %. pm1 Interpretation: normal. Counseling: I had a detailed discussion with the patient and/or guardian regarding: the historical points, exam findings, and any diagnostic results supporting the discharge/admit diagnosis, lab results, radiology results, the need for outpatient follow up, to return to the emergency department if symptoms worsen or persist or if there are any questions or concerns that arise at home. 10/18 15:21 Order name: Basic Metabolic Panel; Complete Time: 16:27 pm1 10/18 15:21 Order name: CBC with Diff; Complete Time: 16:27 pm1 10/18 15:21 Order name: LFT's; Complete Time: 16:27 pm1 10/18 15:21 Order name: Magnesium; Complete Time: 16:27 pm1 10/18 15:21 Order name: NT PRO-BNP; Complete Time: 16:27 pm1 10/18 15:21 Order name: PT-INR; Complete Time: 16:27 pm1 10/18 15:08 Order name: EKG; Complete Time: 15:09 sv 10/18 15:08 Order name: EKG - Nurse/Tech; Complete Time: 15:13 sv 10/18 15:21 Order name: Troponin (emerg Dept Use Only); Complete Time: 16:27 pm1 10/18 15:21 Order name: XRAY Chest (1 view); Complete Time: 16:09 pm1 10/18 15:21 Order name: CT Head Brain wo Cont; Complete Time: 16:09 pm1 10/18 16:30 Order name: Urine Dipstick--Ancillary (enter results) eb 10/18 15:21 Order name: Cardiac monitoring; Complete Time: 15:49 pm1 10/18 15:21 Order name: IV Saline Lock; Complete Time: 15:49 pm1 10/18 15:21 Order name: Labs collected and sent; Complete Time: 15:49 pm1 10/18 15:21 Order name: O2 Per Protocol; Complete Time: 15:49 pm1 10/18 15:21 Order name: O2 Sat Monitoring; Complete Time: 15:49 pm1 10/18 15:21 Order name: Orthostatic Blood Pressure; Complete Time: 15:49 pm1 10/18 15:21 Order name: Urine Dipstick-Ancillary (obtain specimen); Complete Time: 16:29 pm1 EC:20 Rate is 80 beats/min. Rhythm is regular, Normal Sinus Rhythm with No ectopy. No Q pm1 waves. No ST changes noted. Clinical impression: Abnormal EKG without significant change. Administered Medications: 16:08 Drug: NS 0.9% 1000 ml Route: IV; Rate: 1000 ml; Site: right forearm; la1 17:56 Follow up: IV Status: Completed infusion la1 16:32 Drug: NS 0.9% 1000 ml Route: IV; Rate: 1000 ml; Site: right forearm; la1 17:57 Follow up: IV Status: Completed infusion la1 Disposition: 10/18/18 17:49 Discharged to Home. Impression: Hypotension, Dehydration. - Condition is Stable. - Discharge Instructions: Dehydration, Adult, Dizziness, Hypotension, Orthostatic Hypotension, Rehydration, Adult. - Medication Reconciliation Form, Thank You Letter, Antibiotic Education, Prescription Opioid Use form. - Follow up: Emergency Department; When: As needed; Reason: Worsening of condition. Follow up: Private Physician; When: 2 - 3 days; Reason: Recheck today's complaints, Continuance of care, Re-evaluation by your physician. - Problem is new. - Symptoms have improved. Addendum: 10/20/2018 06:30 Co-signature as Attending Physician, Pratik Solorzano MD I agree with the assessment and k dr plan of care. Signatures: Dispatcher [employer] EDMaria Eugenia Deleon RN RN Pratik Solorzano MD MD [facility] You Carson RN RN la1 Mohan Remy, SARAH THERMAL INTELLIGENCE ANALYST pm1 Corrections: (The following items were deleted from the chart) 06 17:49 17:49 10/18/2018 17:49 Discharged to Home. Impression: Dehydration. Condition is pm1 Stable. Discharge Instructions: Dehydration, Adult, Dizziness, Rehydration, Adult. Forms are Medication Reconciliation Form, Thank You Letter, Antibiotic Education, Prescription Opioid Use. Follow up: Emergency Department; When: As needed; Reason: Worsening of condition. Follow up: Private Physician; When: 2 - 3 days; Reason: Recheck today's complaints, Continuance of care, Re-evaluation by your physician. Problem is new. Symptoms have improved. pm1 18:06 17:49 10/18/2018 17:49 Discharged to Home. Impression: HypotensionDehydration. la1 Condition is Stable. Discharge Instructions: Dehydration, Adult, Dizziness, Rehydration, Adult. Forms are Medication Reconciliation Form, Thank You Letter, Antibiotic Education, Prescription Opioid Use. Follow up: Emergency Department; When: As needed; Reason: Worsening of condition. Follow up: Private Physician; When: 2 - 3 days; Reason: Recheck today's complaints, Continuance of care, Re-evaluation by your physician. Problem is new. Symptoms have improved. pm1
[2018-10-18 18:20] VITALS: TEMP 97.3; O2SAT 98
[2018-10-18 18:21] VITALS: BP 131/72
[2018-10-18 20:09] LABS: Urine Blood NEGATIVE (NEG); Urine Glucose NEGATIVE (NEG); Urine Specific Gravity 1.025 (1.005-1.030)
[2018-10-18 20:10] LABS: Urine Protein 1+ (NEG)
--- NOTE | 2018-10-19 09:48 | EKG ---
Test Date: 2018-10-18 Test Time: 15:11:33 Fire Captain: GLADYS MEASUREMENT RESULTS: Intervals: Rate: 80 RI: 148 QRSD: 84 QT: 338 QTc: 389 [place]: P: 55 RI: 148 QRS: 56 T: 7 INTERPRETIVE STATEMENTS: Normal sinus rhythm Nonspecific T wave abnormality Abnormal ECG Compared to ECG 12/11/1999 15:52:00 T-wave abnormality now present Electronically Signed On 10-19-18 09:47:15 CDT by Zeke Nix
== END 2018-10-18 18:06 | disposition home or self-care (01) ==
LOC: ER 14:54
DX: I95.9 Hypotension, unspecified (principal); E86.0 Dehydration; E11.9 Type 2 diabetes mellitus without complications; I10 Essential (primary) hypertension; E03.9 Hypothyroidism, unspecified; Z79.4 Long term (current) use of insulin
CPT/HCPCS: 36415; 70450; 71045; 80048; 80076; 81003; 82962; 83735; 83880; 84484; 85025; 85610; 93005; 96360; 96361; 99284; J7030

== ENCOUNTER 2018-10-29 07:20 | Emergency (ER) | payer BC ==
--- OUTSIDE RECORDS SUMMARY | 2018-10-29 07:26 | XMS REPORT | Clinical Summary ---
:1965 Author Organization [facility] Address [address] [place] [address] Care Team Providers Name Role Phone Provider, [...] Health Maintenance Due Date Last Done Comments COLONOSCOPY SCREENING 01/09/2014 SHINGLES VACCINES (#1) 01/09/2014 INFLUENZA VACCINE 12/18/2018 Results Not on fileafter 10/28/2017 (Home) [place] [address] Advance Directives Patient has advance care planning documents on file. For more information, please contact:[address] [address]
--- NOTE | 2018-10-29 07:38 | EDPHYS ---
Physician Documentation [facility] Name: Zeke Mackay Sr Age: 53 yrs Sex: Male : 1965 Arrival Date: 10/29/2018 Time: 07:23 Bed 20 Private MD: Hazel Mcbride Z ED Physician Garrett Flores HPI: 10/29 07:30 This 53 yrs old Male presents to ER via Unassigned with complaints of Foot ps1 Infection. 07:30 patient has history of diabetic wounds was just on IV antibiotics and stepped on a ps1 nail. He was wearing shoes. Went to his doctor and was told to watch it. Its now infected. Pain and erythema at wound site. Appears early. Pain rated as moderate and worse with ambulating and WB. No fever. . 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 - Social history:: Smoking status: . - Ebola Screening: : Patient denies travel to an Ebola-affected area in the 21 days before illness onset. ROS: 07:30 MS/extremity: Positive for pain, puncture, warmth, of the heel of right foot. ps1 07:30 Constitutional: Negative for fever, chills, and weight loss, Eyes: Negative for injury, pain, redness, and discharge, Respiratory: Negative for shortness of breath, cough, wheezing, and pleuritic chest pain, Abdomen/GI: Negative for abdominal pain, nausea, vomiting, diarrhea, and constipation, Back: Negative for injury and pain, Neuro: Negative for headache, weakness, numbness, tingling, and seizure. 07:30 Skin: Positive for ulceration, of the plantar aspect of right first toe and plantar aspect of right fifth toe. Exam: 07:30 Constitutional: This is a well developed, well nourished patient who is awake, alert, ps1 and in no acute distress. Head/Face: Normocephalic, atraumatic. Eyes: Pupils equal round and reactive to light, extra-ocular motions intact. Lids and lashes normal. Conjunctiva and sclera are non-icteric and not injected. Cardiovascular: Regular rate and rhythm. No gallops, murmurs, or rubs. Normal PMI, no JVD. No pulse deficits. Respiratory: Lungs have equal breath sounds bilaterally, clear to auscultation and percussion. No rales, rhonchi or wheezes noted. No increased work of breathing, no retractions or nasal flaring. Abdomen/GI: Soft, non-tender, with normal bowel sounds. No distension or tympany. No guarding or rebound. No evidence of tenderness throughout. 07:30 Musculoskeletal/extremity: Extremities: grossly normal except: noted in the heel of right foot: erythema, pain, puncture, noted in the plantar aspect of right first toe: bandaged and appears CDI, noted in the plantar aspect of right fifth toe: bandaged and appears CDI.. Vital Signs: 07:27 BP 134 / 74; Pulse 76; Resp 16; Temp 98.2; Pulse Ox 99% on R/A; Weight 93.44 kg; Height ss 6 ft. 2 in. (187.96 cm); Pain 2/10; 07:36 BP 134 / 76; Pulse 75; Resp 17; Pulse Ox 98% on R/A; tw2 07:27 Body Mass Index 26.45 (93.44 kg, 187.96 cm) ss MDM: 07:37 Patient medically screened. ps1 Administered Medications: No medications were administered Disposition: 10/29/18 07:37 Discharged to Home. Impression: Puncture wound without foreign body of foot. - Condition is Stable. - Discharge Instructions: Puncture Wound, [id number]. - Prescriptions for clindamycin HCl 150 mg Oral capsule - take 3 capsule by ORAL route every 8 hours; 42 capsule. Cipro 250 mg Oral Tablet - take 3 tablet by ORAL route every 12 hours for 14 days; 84 tablet. - Work release form, Medication Reconciliation Form, Thank You Letter, Antibiotic Education, Prescription Opioid Use form. - Follow up: Private Physician; When: 48 Hours; Reason: Recheck today's complaints, Continuance of care, Re-evaluation by your physician. Follow up: Emergency Department; When: As needed; Reason: Fever > 102 F, Worsening of condition. - Problem is new. - Symptoms have worsened. Signatures: Shani Stewart RN RN tw2 Garrett Flores MD MD ps1 Corrections: (The following items were deleted from the chart) 07:49 07:37 10/29/2018 07:37 Discharged to Home. Impression: Puncture wound without foreign tw2 body of foot. Condition is Stable. Forms are Medication Reconciliation Form, Thank You Letter, Antibiotic Education, Prescription Opioid Use. Follow up: Private Physician; When: 48 Hours; Reason: Recheck today's complaints, Continuance of care, Re-evaluation by your physician. Follow up: Emergency Department; When: As needed; Reason: Fever > 102 F, Worsening of condition. Problem is new. Symptoms have worsened. ps1
--- NOTE | 2018-10-29 07:38 | ER ---
Nurse's Notes [facility] Name: Zeke Mackay Sr Age: 53 yrs Sex: Male : 1965 Arrival Date: 10/29/2018 Time: 07:23 Bed 20 Private MD: Hazel Mcbride Z Diagnosis: Puncture wound without foreign body of foot Presentation: 10/29 07:27 Presenting complaint: Patient states: Stepped on a nail last Saturday to R heel. Seen ss by PCP and was told to seek medical help if "anything changes". Pt reports they did not prescribe him antibiotics because he just finished a 6 week course of IV Vancomycin. Transition of care: patient was not received from another setting of care. Onset of symptoms was October 22, 2018. Initial Sepsis Screen: Does the patient meet any 2 criteria? No. Patient's initial sepsis screen is negative. Does the patient have a suspected source of infection? No. Patient's initial sepsis screen is negative. Care prior to arrival: None. 07:27 Method Of Arrival: Ambulatory ss 07:27 Acuity: RICKEY 4 ss 07:30 Risk Assessment: Do you want to hurt yourself or someone else? Patient reports no tw2 desire to harm self or others. Triage Assessment: 07:30 General: Appears in no apparent distress. Behavior is calm. 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 - Social history:: Smoking status: . - Ebola Screening: : Patient denies travel to an Ebola-affected area in the 21 days before illness onset. Screenin:27 Abuse screen: Denies threats or abuse. Nutritional screening: No deficits noted. tw2 Tuberculosis screening: No symptoms or risk factors identified. Fall Risk None identified. Assessment: 07:37 General: Appears in no apparent distress. comfortable, Behavior is calm, cooperative, ss Denies fever, feeling ill, fatigue, chills. Pain: Complains of pain in heel of right foot Pain currently is 2 out of 10 on a pain scale. at worst was 8 out of 10 on a pain scale. Quality of pain is described as tender, Pain began 1 week ago Is continuous. Neuro: Level of Consciousness is awake, alert, obeys commands, Oriented to person, place, time, situation. Cardiovascular: Pulses are palpable in right posterior tibial artery and left posterior tibial artery. Respiratory: Airway is patent Respiratory effort is even, unlabored, Respiratory pattern is regular, symmetrical. GI: Patient currently denies abdominal pain, nausea. EENT: Oral mucosa is moist. Derm: Skin is pink, warm \\T\\ dry. normal. Derm: wound dressing to R first and fifth toes. Pt reports these are unchanged and are healing according to plan with Dr. Ryan. Musculoskeletal: Circulation, motion, and sensation intact. Range of motion: intact in all extremities. 07:37 Injury Description: Puncture sustained to heel of right foot was sustained 1 week. ss 07:39 General: Appears in no apparent distress. Behavior is calm, cooperative, appropriate tw2 for age. Neuro: Level of Consciousness is awake, alert, obeys commands, Oriented to person, place, time, situation. Cardiovascular: Patient's skin is warm and dry. Respiratory: Airway is patent Respiratory effort is even, unlabored, Respiratory pattern is regular, symmetrical. GI: No signs and/or symptoms were reported involving the gastrointestinal system. : No signs and/or symptoms were reported regarding the genitourinary system. EENT: No signs and/or symptoms were reported regarding the EENT system. Derm: Reports wound to great and 5th toe of the left foot. 07:49 Reassessment: Patient appears in no apparent distress at this time. No changes from tw2 previously documented assessment. Vital Signs: 07:27 BP 134 / 74; Pulse 76; Resp 16; Temp 98.2; Pulse Ox 99% on R/A; Weight 93.44 kg; Height ss 6 ft. 2 in. (187.96 cm); Pain 2; 07:36 BP 134 / 76; Pulse 75; Resp 17; Pulse Ox 98% on R/A; tw2 07:27 Body Mass Index 26.45 (93.44 kg, 187.96 cm) ED Course: 07:23 Patient arrived in ED. mr 07:24 Hazel Mcbride MD is Private Physician. mr 07:26 Garrett Flores MD is Attending Physician. ps1 07:27 Shani Stewart, RN is Primary Nurse. tw2 07:30 Arm band placed on. tw2 07:30 Bed in low position. Call light in reach. tw2 07:34 Triage completed. ss 07:40 No provider procedures requiring assistance completed. Patient did not have IV access tw2 during this emergency room visit. Administered Medications: No medications were administered Outcome: 07:37 Discharge ordered by MD. ps1 07:49 Discharged to home ambulatory. tw2 07:49 Condition: stable 07:49 Discharge instructions given to patient, Instructed on discharge instructions, follow up and referral plans. medication usage, Demonstrated understanding of instructions, follow-up care, medications, Prescriptions given X 2. 07:49 Patient left the ED. tw2 Signatures: Hollie Garcia mr FransicotenzinRuchi RN RN Shani Stewart RN RN tw2 Garrett Flores MD MD ps1
[2018-10-29 09:33] VITALS: TEMP 98.2
[2018-10-29 09:34] VITALS: BP 134/76; O2SAT 98
== END 2018-10-29 07:49 | disposition home or self-care (01) ==
LOC: ER 07:20
DX: S91.331A Puncture wound without foreign body, right foot, initial encounter (principal); E11.621 Type 2 diabetes mellitus with foot ulcer; L97.519 Non-pressure chronic ulcer of other part of right foot with unspecified severity; I10 Essential (primary) hypertension; E03.9 Hypothyroidism, unspecified; Z79.4 Long term (current) use of insulin
CPT/HCPCS: 99282

== ENCOUNTER 2018-11-24 10:45 | Emergency (ER) | payer BC ==
--- OUTSIDE RECORDS SUMMARY | 2018-11-24 10:48 | XMS REPORT | Clinical Summary ---
:1965 Author Organization [facility] Address [address] [place] [address] Care Team Providers Name Role Phone Provider, [...] INFLUENZA VACCINE 12/18/2018 Results Not on fileafter 11/23/2017 (Home) [place] [address] Advance Directives Patient has advance care planning documents on file. For more information, please contact:[address] [address]
--- NOTE | 2018-11-24 12:13 | ER ---
Nurse's Notes [facility] Name: Zeke Mackay Sr Age: 53 yrs Sex: Male : 1965 Arrival Date: 11/24/2018 Time: 10:48 Bed 19 Private MD: Hazel Mcbride Z Diagnosis: Encounter for wound check Presentation: 11/24 10:52 Presenting complaint: Patient states: "I got a cut on my left heel about 4 weeks [address] aa5 [address] Pardo has been taking care of it but he asked me to come to the ER for it to be evaluated because it's not getting better". Pt reports he is currently taking Augmentin. Transition of care: patient was not received from another setting of care. Onset of symptoms was October 2018. Risk Assessment: Do you want to hurt yourself or someone else? Patient reports no desire to harm self or others. Initial Sepsis Screen: Does the patient meet any 2 criteria? No. Patient's initial sepsis screen is negative. Does the patient have a suspected source of infection? No. Patient's initial sepsis screen is negative. Care prior to arrival: None. 10:52 Method Of Arrival: Ambulatory aa5 10:52 Acuity: RICKEY 3 aa5 Triage Assessment: 11:00 General: Appears in no apparent distress. comfortable, Behavior is calm, cooperative, bp appropriate for age. Pain: Denies pain. EENT: No deficits noted. Neuro: Level of Consciousness is awake, alert, obeys commands, Oriented to person, place, time, situation, Appropriate for age. Cardiovascular: No deficits noted. Respiratory: No deficits noted. GI: No signs and/or symptoms were reported involving the gastrointestinal system. : No signs and/or symptoms were reported regarding the genitourinary system. Derm: Wound noted left foot. Musculoskeletal: No deficits noted. 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 - Social history:: Smoking status: Patient/guardian denies using tobacco. - Ebola Screening: : No symptoms or risks identified at this time. Screenin:00 Abuse screen: Denies threats or abuse. Denies injuries from another. Nutritional bp screening: No deficits noted. Tuberculosis screening: No symptoms or risk factors identified. Fall Risk None identified. Assessment: 11:00 General: SEE TRIAGE NOTE. bp 11:56 Reassessment: DRESSING REPLACED. INFECTIOUS DISEASE C/S PENDING. bp 12:17 Reassessment: PT D/C HOME AMBULATORY, DX WITH ENCOUNTER FOR WOUND CHECK. bp Vital Signs: 10:57 BP 129 / 79; Pulse 68; Resp 16 S; Temp 98.2(TE); Pulse Ox 98% on R/A; Weight 93.44 kg aa5 (R); Height 6 ft. 2 in. (187.96 cm) (R); Pain 0/10; 11:54 BP 144 / 88; Pulse 70; Resp 16; Temp 98.0(TE); Pulse Ox 98% on R/A; mh5 10:57 Body Mass Index 26.45 (93.44 kg, 187.96 cm) aa5 ED Course: 10:48 Patient arrived in ED. rg4 10:49 Hazel Mcbride MD is Private Physician. rg4 10:52 Arm band placed on. aa5 10:54 Triage completed. aa5 11:24 Garrett Flores MD is Attending Physician. ps1 11:40 Kianna Treadwell, ARTURO is Primary Nurse. aj 11:53 Patient has correct armband on for positive identification. Bed in low position. Pulse mh5 ox on. NIBP on. 11:54 Dressings: non-adherent dressing x 1 left foot. bp 12:11 Nathanael Ryan MD is Referral Physician. ps1 12:18 No provider procedures requiring assistance completed. Patient did not have IV access bp during this emergency room visit. Administered Medications: No medications were administered Outcome: 12:12 Discharge ordered by . ps1 12:18 Discharged to home ambulatory. bp 12:18 Condition: stable 12:18 Discharge instructions given to patient, Instructed on discharge instructions, follow up and referral plans. wound care, Demonstrated understanding of instructions, follow-up care, wound care. 12:19 Patient left the ED. bp Signatures: Kianna Treadwell RN RN aj Calderon, Audri, RN RN [email or web address] Shanel Flores 4 Ladi Merino 5 John Parrish RN RN bp Garrett Flores MD MD ps1
--- NOTE | 2018-11-24 12:13 | EDPHYS ---
Physician Documentation [facility] [place] [place] Name: Zeke Mackay Sr Age: 53 yrs Sex: Male : 1965 Arrival Date: 11/24/2018 Time: 10:48 Bed 19 Private MD: Hazel Mcbride Z ED Physician Garrett Flores HPI: 11/24 12:01 This 53 yrs old Male presents to ER via Ambulatory with complaints of Foot ps1 Infection. 12:01 patient is a diabetic with a non-healing wound on left heel. Concerned about increased ps1 secretions. Mild serous. No smell. No fever. Treated by Dr. Ryan wound care. No pain. . 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 - Social history:: Smoking status: Patient/guardian denies using tobacco. - Ebola Screening: : No symptoms or risks identified at this time. ROS: 12:01 MS/extremity: Positive for of the heel of left foot. ps1 12:01 Constitutional: Negative for fever, chills, and weight loss, Eyes: Negative for injury, pain, redness, and discharge, Cardiovascular: Negative for chest pain, palpitations, and edema, Respiratory: Negative for shortness of breath, cough, wheezing, and pleuritic chest pain, Abdomen/GI: Negative for abdominal pain, nausea, vomiting, diarrhea, and constipation, Skin: Negative for injury, rash, and discoloration, Neuro: Negative for headache, weakness, numbness, tingling, and seizure, Psych: Negative for depression, anxiety, suicide ideation, homicidal ideation, and hallucinations. Exam: 12:01 Constitutional: This is a well developed, well nourished patient who is awake, alert, ps1 and in no acute distress. Head/Face: Normocephalic, atraumatic. Eyes: Pupils equal round and reactive to light, extra-ocular motions intact. Lids and lashes normal. Conjunctiva and sclera are non-icteric and not injected. Cardiovascular: Regular rate and rhythm. No gallops, murmurs, or rubs. Normal PMI, no JVD. No pulse deficits. Respiratory: Lungs have equal breath sounds bilaterally, clear to auscultation and percussion. No rales, rhonchi or wheezes noted. No increased work of breathing, no retractions or nasal flaring. Abdomen/GI: Soft, non-tender, with normal bowel sounds. No distension or tympany. No guarding or rebound. No evidence of tenderness throughout. Neuro: Awake and alert, GCS 15, oriented to person, place, time, and situation. Cranial nerves II-XII grossly intact. Sensory grossly intact. 12:01 Musculoskeletal/extremity: Extremities: grossly normal except: noted in the heel of left foot: has chronic appearing wound that appears well. Packed with iodoform and dressed that appears well. Mild serous drainage. . Vital Signs: 10:57 BP 129 / 79; Pulse 68; Resp 16 S; Temp 98.2(TE); Pulse Ox 98% on R/A; Weight 93.44 kg aa5 (R); Height 6 ft. 2 in. (187.96 cm) (R); Pain 0/10; 11:54 BP 144 / 88; Pulse 70; Resp 16; Temp 98.0(TE); Pulse Ox 98% on R/A; mh5 10:57 Body Mass Index 26.45 (93.44 kg, 187.96 cm) aa5 MDM: 12:01 Data reviewed: vital signs, nurses notes, and as a result, I will discharge patient. ps1 Counseling: I had a detailed discussion with the patient and/or guardian regarding: the historical points, exam findings, and any diagnostic results supporting the discharge/admit diagnosis, the need for outpatient follow up. 12:12 Patient medically screened. ps1 Administered Medications: No medications were administered Disposition: 11/24/18 12:12 Discharged to Home. Impression: Encounter for wound check. - Condition is Stable. - Discharge Instructions: Wound Care. - Medication Reconciliation Form, Thank You Letter, Antibiotic Education, Prescription Opioid Use form. - Follow up: Nathanael Ryan MD; When: 2 - 3 days; Reason: Wound Recheck, Recheck today's complaints, Continuance of care. Follow up: Emergency Department; When: As needed; Reason: Fever > 102 F, Worsening of condition. - Problem is chronic. - Symptoms have improved. Signatures: Allison Almanzar RN RN aa5 John Parrish RN RN bp Garrett Flores MD MD ps1 Corrections: (The following items were deleted from the chart) 12:19 12:12 11/24/2018 12:12 Discharged to Home. Impression: Encounter for wound check. bp Condition is Stable. Forms are Medication Reconciliation Form, Thank You Letter, Antibiotic Education, Prescription Opioid Use. Follow up: Nathanael Ryan; When: 2 - 3 days; Reason: Wound Recheck, Recheck today's complaints, Continuance of care. Follow up: Emergency Department; When: As needed; Reason: Fever > 102 F, Worsening of condition. Problem is chronic. Symptoms have improved. ps1
[2018-11-24 12:25] VITALS: O2SAT 98
[2018-11-24 12:26] VITALS: BP 144/88; TEMP 98
== END 2018-11-24 12:19 | disposition home or self-care (01) ==
LOC: ER 10:45
DX: Z48.00 Encounter for change or removal of nonsurgical wound dressing (principal); S91.302D Unspecified open wound, left foot, subsequent encounter; E11.9 Type 2 diabetes mellitus without complications; I10 Essential (primary) hypertension; E03.9 Hypothyroidism, unspecified; Z79.82 Long term (current) use of aspirin; Z79.4 Long term (current) use of insulin; Z89.421 Acquired absence of other right toe(s)
CPT/HCPCS: 99283

== ENCOUNTER 2019-05-05 19:55 | Emergency (ER) | payer BC, SELFPAY ==
[2019-05-05] MEDS ORDERED: CLINDAMYCIN IV 150 MG/ML (4 mL) VIAL ONE (21:08)
--- NOTE | 2019-05-05 21:30 | ER ---
Nurse's Notes [facility] Name: Zeke Mackay Sr Age: 54 yrs Sex: Male : 1965 Arrival Date: 05/05/2019 Time: 19:58 Bed 20 Private MD: Diagnosis: Non-pressure chronic ulcer of other part of right foot limited to breakdown of skin Presentation: 05/05 20:19 Presenting complaint: Patient states: I think I have a diabetic ulcer on my left heel. tl1 Transition of care: patient was not received from another setting of care. Onset of symptoms was May 05, 2019. Risk Assessment: Do you want to hurt yourself or someone else? Patient reports no desire to harm self or others. Initial Sepsis Screen: Does the patient meet any 2 criteria? No. Patient's initial sepsis screen is negative. Does the patient have a suspected source of infection? Yes: Skin breakdown/wound. Care prior to arrival: None. 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 - Social history:: Smoking status: Patient/guardian denies using tobacco. - Ebola Screening: : Patient negative for fever greater than or equal to 101.5 degrees Fahrenheit, and additional compatible Ebola Virus Disease symptoms Patient denies exposure to infectious person Patient denies travel to an Ebola-affected area in the 21 days before illness onset. Screenin:50 Abuse screen: Denies threats or abuse. Denies injuries from another. Nutritional rv screening: No deficits noted. Tuberculosis screening: No symptoms or risk factors identified. Fall Risk None identified. Assessment: 20:49 General: Appears in no apparent distress. comfortable, Behavior is calm, cooperative. rv Pain: Complains of pain in left foot. Neuro: Level of Consciousness is awake, alert, obeys commands, Oriented to person, place, time, situation. Cardiovascular: Patient's skin is warm and dry. Respiratory: Airway is patent. GI: No signs and/or symptoms were reported involving the gastrointestinal system. : No signs and/or symptoms were reported regarding the genitourinary system. EENT: No signs and/or symptoms were reported regarding the EENT system. Derm: Skin with poor turgor Wound noted left foot. Vital Signs: 20:22 BP 158 / 92; Pulse 73; Resp 17; Temp 98.8; Pulse Ox 97% ; Weight 95.25 kg; Height 6 ft. tl1 2 in. (187.96 cm); Pain 0/10; 21:46 BP 145 / 86; Pulse 71; Resp 16; Pulse Ox 98% ; rv 20:22 Body Mass Index 26.96 (95.25 kg, 187.96 cm) tl1 ED Course: 19:58 Patient arrived in ED. jg7 20:20 Triage completed. tl1 20:20 Fred Jacob MD is Attending Physician. tw4 20:22 Arm band placed on right wrist. EKG completed in triage. Results shown to MD. tl1 20:47 Joaquim Cotto, ARTURO is Primary Nurse. rv 20:50 Patient has correct armband on for positive identification. Bed in low position. Call rv light in reach. Pulse ox on. NIBP on. 21:47 No provider procedures requiring assistance completed. Patient did not have IV access rv during this emergency room visit. Administered Medications: 21:11 Drug: Clindamycin 600 mg {Note: right and left deltoid.} Route: IM; Site: Other; rv 21:47 Follow up: Response: No adverse reaction rv Outcome: 21:29 Discharge ordered by . tw4 21:47 Discharged to home ambulatory. rv 21:47 Condition: good 21:47 Discharge instructions given to patient, Instructed on discharge instructions, follow up and referral plans. medication usage, Demonstrated understanding of instructions, follow-up care, medications, Prescriptions given X 1. 21:49 Patient left the ED. rv Signatures: Jada Lezama RN RN tl1 Fred Jacob MD MD tw4 Joaquim Cotto RN RN rv Suellen Hale [email or web address]
--- NOTE | 2019-05-05 21:30 | EDPHYS ---
Physician Documentation [facility] Name: Zeke Mackay Sr Age: 54 yrs Sex: Male : 1965 Arrival Date: 05/05/2019 Time: 19:58 Bed 20 Private MD: ED Physician Fred Jacob HPI: 05/06 06:22 This 54 yrs old Male presents to ER via Ambulatory with complaints of Foot tw4 Pain. 06:22 The patient presents with HEALING ULCER ON RIGHT FOOT. The complaints affect the right tw4 foot. Onset: The symptoms/episode began/occurred 4 week(s) ago. Modifying factors: The symptoms are alleviated by nothing, the symptoms are aggravated by nothing. The patient has not experienced similar symptoms in the past. Pt has a healing ulcer on right foot sats that now it has an odor, no drainage, no erythema. 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 - Social history:: Smoking status: Patient/guardian denies using tobacco. - Ebola Screening: : Patient negative for fever greater than or equal to 101.5 degrees Fahrenheit, and additional compatible Ebola Virus Disease symptoms Patient denies exposure to infectious person Patient denies travel to an Ebola-affected area in the 21 days before illness onset. ROS: 05/06 06:23 MS/extremity: Positive for pain. tw4 Constitutional: Negative for fever, chills, and weight loss, Cardiovascular: Negative for chest pain, palpitations, and edema, Respiratory: Negative for shortness of breath, cough, wheezing, and pleuritic chest pain, Abdomen/GI: Negative for abdominal pain, nausea, vomiting, diarrhea, and constipation, Back: Negative for injury and pain, Skin: Negative for injury, rash, and discoloration, Neuro: Negative for headache, weakness, numbness, tingling, and seizure. Exam: 06:23 Constitutional: This is a well developed, well nourished patient who is awake, alert, tw4 and in no acute distress. Head/Face: Normocephalic, atraumatic. Chest/axilla: Normal chest wall appearance and motion. Nontender with no deformity. No lesions are appreciated. Cardiovascular: Regular rate and rhythm with a normal S1 and S2. No gallops, murmurs, or rubs. Normal PMI, no JVD. No pulse deficits. Respiratory: Lungs have equal breath sounds bilaterally, clear to auscultation and percussion. No rales, rhonchi or wheezes noted. No increased work of breathing, no retractions or nasal flaring. Abdomen/GI: Soft, non-tender, with normal bowel sounds. No distension or tympany. No guarding or rebound. No evidence of tenderness throughout. Back: No spinal tenderness. No costovertebral tenderness. Full range of motion. 06:23 Musculoskeletal/extremity: Extremities: noted in the heel of right foot: 2cm healing ulcer on right heel, There is no evidence of contusion, decreased ROM, ecchymosis, erythema, pain, swelling, tenderness. Vital Signs: 05/05 20:22 BP 158 / 92; Pulse 73; Resp 17; Temp 98.8; Pulse Ox 97% ; Weight 95.25 kg; Height 6 ft. tl1 2 in. (187.96 cm); Pain 0/10; 21:46 BP 145 / 86; Pulse 71; Resp 16; Pulse Ox 98% ; rv 20:22 Body Mass Index 26.96 (95.25 kg, 187.96 cm) tl1 MDM: 20:20 Patient medically screened. tw4 05/06 06:25 Differential diagnosis: fracture, foreign body, cellulitis. Data reviewed: vital signs, tw4 nurses notes. Data interpreted: Pulse oximetry: Interpretation: normal. Counseling: I had a detailed discussion with the patient and/or guardian regarding: the historical points, exam findings, and any diagnostic results supporting the discharge/admit diagnosis. Special discussion: I discussed with the patient/guardian in detail that at this point there is no indication for admission to the hospital. It is understood, however, that if the symptoms persist or worsen the patient needs to return immediately for re-evaluation. Administered Medications: 05/05 21:11 Drug: Clindamycin 600 mg {Note: right and left deltoid.} Route: IM; Site: Other; rv 21:47 Follow up: Response: No adverse reaction rv Disposition: 05/05/19 21:29 Discharged to Home. Impression: Non-pressure chronic ulcer of other part of right foot limited to breakdown of skin. - Condition is Stable. - Discharge Instructions: Diabetes and Foot Care, Negative Pressure Wound Therapy Dressing Care. - Prescriptions for Clindamycin HCl 300 mg Oral Capsule - take 1 capsule by ORAL route every 6 hours for 10 days; 40 capsule. - Medication Reconciliation Form, Thank You Letter, Antibiotic Education, Prescription Opioid Use form. - Follow up: Private Physician; When: Upon discharge from the Emergency Department; Reason: Recheck today's complaints, Continuance of care. - Problem is new. - Symptoms have improved. Signatures: Jada Lezama RN RN tl1 Fred Jacob MD MD tw4 Joaquim Cotto RN RN rv Corrections: (The following items were deleted from the chart) 21:49 21:29 05/05/2019 21:29 Discharged to Home. Impression: Non-pressure chronic ulcer of rv other part of right foot limited to breakdown of skin. Condition is Stable. Forms are Medication Reconciliation Form, Thank You Letter, Antibiotic Education, Prescription Opioid Use. Follow up: Private Physician; When: Upon discharge from the Emergency Department; Reason: Recheck today's complaints, Continuance of care. Problem is new. Symptoms have improved. tw4
[2019-05-05 22:46] VITALS: TEMP 98.8
[2019-05-05 22:47] VITALS: BP 145/86; O2SAT 98
== END 2019-05-05 21:49 | disposition home or self-care (01) ==
LOC: ER 19:55
DX: L97.411 Non-pressure chronic ulcer of right heel and midfoot limited to breakdown of skin (principal); I10 Essential (primary) hypertension; E11.40 Type 2 diabetes mellitus with diabetic neuropathy, unspecified; Z79.4 Long term (current) use of insulin; Z79.82 Long term (current) use of aspirin; E03.9 Hypothyroidism, unspecified
CPT/HCPCS: 96372; 99283; S0077

== ENCOUNTER 2019-06-08 20:05 | Emergency (ER) | payer BC, SELFPAY ==
[2019-06-08] MEDS ORDERED: DOXYCYCLINE 100 MG CAP PO ONE (20:40)
[2019-06-08] MEDS ORDERED: LIDOCAINE 1% W/EPI 1:100,000 MDV 20 ML VIAL ONE (20:40)
[2019-06-08] MEDS ORDERED: SMZ./TMP. 800/160 MG TABLET ONE (20:40)
--- NOTE | 2019-06-08 20:57 | ER ---
Nurse's Notes [facility] Name: Zeke Mackay Sr Age: 54 yrs Sex: Male : 1965 Arrival Date: 06/08/2019 Time: 20:08 Bed 23 Private MD: Hazel Mcbride Z Diagnosis: Cutaneous abscess of back [any part, except buttock];Type 1 diabetes mellitus Presentation: 06/08 20:19 Presenting complaint: Patient states: Cyst on the L upper back, red, raised, hot and ca1 tender to touch. Denies fever. Reports hx of cyst on the spot with previous surgery. Transition of care: patient was not received from another setting of care. Onset of symptoms was June 08, 2019. Risk Assessment: Do you want to hurt yourself or someone else? Patient reports no desire to harm self or others. Initial Sepsis Screen: Does the patient meet any 2 criteria? No. Patient's initial sepsis screen is negative. Does the patient have a suspected source of infection? No. Patient's initial sepsis screen is negative. Care prior to arrival: None. 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 - Social history:: Smoking status: Patient denies any tobacco usage or history of. - Ebola Screening: : Patient negative for fever greater than or equal to 101.5 degrees Fahrenheit, and additional compatible Ebola Virus Disease symptoms Patient denies exposure to infectious person Patient denies travel to an Ebola-affected area in the 21 days before illness onset No symptoms or risks identified at this time. - Family history:: not pertinent. Screenin:10 Abuse screen: Denies threats or abuse. Nutritional screening: No deficits noted. jv1 Tuberculosis screening: No symptoms or risk factors identified. Fall Risk None identified. Assessment: 20:44 General: Appears comfortable, well groomed, Behavior is calm, cooperative, appropriate jv1 for age. Pain: Complains of pain in right subscapular area and back Pain does not radiate. Pain currently is 6 out of 10 on a pain scale. Quality of pain is described as aching. Neuro: Oriented to person, place, time, situation. Cardiovascular: Heart tones S1 S2 Capillary refill < 3 seconds is brisk. Respiratory: Airway is patent Respiratory effort is even, unlabored, Respiratory pattern is regular, symmetrical. GI: Abdomen is round non-distended, Bowel sounds present X 4 quads. : No signs and/or symptoms were reported regarding the genitourinary system. EENT: No signs and/or symptoms were reported regarding the EENT system. Derm: Skin is intact, is healthy with good turgor, Skin is dry, Skin is pink, warm \T\ dry. Abscess located on right subscapular area and back is half dollar sized, has no drainage, is hot to touch, is red, is raised, Reports pain that is 6 out of 10 on a pain scale. Musculoskeletal: Circulation, motion, and sensation intact. Capillary refill < 3 seconds. 21:08 Reassessment: provider in the room with pt. jv1 21:15 Reassessment: provider doing incision and drainage. jv1 21:45 Reassessment: Patient and/or family updated on plan of care and expected duration. Pain jv1 level reassessed. Patient is alert, oriented x 3, equal unlabored respirations, skin warm/dry/pink. Patient states symptoms have improved. wound dressing placed. Vital Signs: 20:23 BP 133 / 75; Pulse 87; Resp 16 S; Temp 98.8(O); Pulse Ox 97% on R/A; Weight 95.25 kg ca1 (R); Height 6 ft. 2 in. (187.96 cm) (R); Pain 6/10; 21:40 BP 146 / 70; Pulse 87; Resp 18; Temp 98.3; Pulse Ox 99% ; Pain 6/10; jv1 20:23 Body Mass Index 26.96 (95.25 kg, 187.96 cm) ca1 ED Course: 20:08 Patient arrived in ED. es 20:09 Hazel Mcbride MD is Private Physician. es 20:14 Rashi Gimenez MD is Attending Physician. shandra 20:21 Triage completed. ca1 20:23 Arm band placed on right wrist. ca1 20:52 Wound Culture Sent. dm5 20:56 Venkata Quiles MD is Referral Physician. shandra 21:11 Patient has correct armband on for positive identification. Placed in gown. Bed in low jv1 position. Call light in reach. 21:55 Assist provider with I \T\ D: of an abscess on upper back Performed by Rashi Gimenez MD. jv1 Patient did not have IV access during this emergency room visit. Administered Medications: 20:43 Drug: Doxycycline 200 mg Route: PO; jv1 21:31 Follow up: Response: No adverse reaction mg2 21:38 Follow up: Response: No adverse reaction jv1 20:43 Drug: Bactrim (160 mg-800 mg (DS) 1 tablet Route: PO; jv1 21:31 Follow up: Response: No adverse reaction mg2 21:38 Follow up: Response: No adverse reaction jv1 21:00 Drug: Lidocaine-Epinephrine -1%: (1:100,000) 10 ml {Note: administered by the mg2 provider.} Volume: 20 ml; Route: Infiltration; 21:43 Follow up: Response: No adverse reaction mg2 21:56 Follow up: Response: No adverse reaction jv1 21:42 Drug: [place] 10 mg-325 mg 1 tabs Route: PO; mg2 21:42 Follow up: Response: No adverse reaction; Medication administered at discharge. mg2 21:56 Follow up: Response: No adverse reaction; RASS: Alert and Calm (0) jv1 Outcome: 20:56 Discharge ordered by . [facility] 21:54 Discharged to home ambulatory, with family. jv1 21:54 Condition: good 21:54 Discharge instructions given to patient, family, Instructed on discharge instructions, follow up and referral plans. wound care, Demonstrated understanding of instructions, follow-up care, medications, wound care, Prescriptions given X 3. 21:57 Patient left the ED. jv1 Signatures: Amparo Isidro, RN RN dmRashi Leigh MD MD cha Salyer, Edna es Gardose, Michele, RN RN mg2 Joie Cotto RN RN jv1 Eugenia Finley RN RN ca1 Corrections: (The following items were deleted from the chart) 20:50 20:23 PSHx: None; ca1 ca1
--- NOTE | 2019-06-08 20:57 | EDPHYS ---
Physician Documentation [facility] Name: Zeke Mackay Sr Age: 54 yrs Sex: Male : 1965 Arrival Date: 06/08/2019 Time: 20:08 Bed 23 Private MD: Hazel Mcbride Z ED Physician Rashi Gimenez HPI: 06/08 20:24 This 54 yrs old Male presents to ER via Ambulatory with complaints of Cyst. shandra 20:24 The patient presents with an abscess of the back, The patient presents with cellulitis shandra of the back. Description: erythematous. Onset: The symptoms/episode began/occurred 3 day(s) ago. Possible cause(s): infected sebacous cyst. Associated signs and symptoms: The patient has no apparent associated signs or symptoms. Modifying factors: the symptoms are alleviated by nothing, the symptoms are aggravated by nothing. Severity of symptoms: At their worst the symptoms were mild, moderate, in the emergency department the symptoms are unchanged. The patient has not experienced similar symptoms in the past. 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 - Social history:: Smoking status: Patient denies any tobacco usage or history of. - Ebola Screening: : Patient negative for fever greater than or equal to 101.5 degrees Fahrenheit, and additional compatible Ebola Virus Disease symptoms Patient denies exposure to infectious person Patient denies travel to an Ebola-affected area in the 21 days before illness onset No symptoms or risks identified at this time. - Family history:: not pertinent. ROS: 20:24 Constitutional: Negative for fever, chills, and weight loss, Eyes: Negative for injury, shandra pain, redness, and discharge, ENT: Negative for injury, pain, and discharge, Neck: Negative for injury, pain, and swelling, Cardiovascular: Negative for chest pain, palpitations, and edema, Respiratory: Negative for shortness of breath, cough, wheezing, and pleuritic chest pain, Abdomen/GI: Negative for abdominal pain, nausea, vomiting, diarrhea, and constipation, Back: Negative for injury and pain, : Negative for injury, bleeding, discharge, and swelling, MS/Extremity: Negative for injury and deformity, Neuro: Negative for headache, weakness, numbness, tingling, and seizure, Psych: Negative for depression, anxiety, suicide ideation, homicidal ideation, and hallucinations, Allergy/Immunology: Negative for hives, rash, and allergies, Endocrine: Negative for neck swelling, polydipsia, polyuria, polyphagia, and marked weight changes, Hematologic/Lymphatic: Negative for swollen nodes, abnormal bleeding, and unusual bruising. 20:24 Skin: Positive for abscess, cellulitis, of the back. Exam: 20:24 Constitutional: This is a well developed, well nourished patient who is awake, alert, shandra and in no acute distress. Head/Face: Normocephalic, atraumatic. Eyes: Pupils equal round and reactive to light, extra-ocular motions intact. Lids and lashes normal. Conjunctiva and sclera are non-icteric and not injected. Cornea within normal limits. Periorbital areas with no swelling, redness, or edema. ENT: Nares patent. No nasal discharge, no septal abnormalities noted. Tympanic membranes are normal and external auditory canals are clear. Oropharynx with no redness, swelling, or masses, exudates, or evidence of obstruction, uvula midline. Mucous membranes moist. Neck: Trachea midline, no thyromegaly or masses palpated, and no cervical lymphadenopathy. Supple, full range of motion without nuchal rigidity, or vertebral point tenderness. No Meningismus. Chest/axilla: Normal chest wall appearance and motion. Nontender with no deformity. No lesions are appreciated. Cardiovascular: Regular rate and rhythm with a normal S1 and S2. No gallops, murmurs, or rubs. Normal PMI, no JVD. No pulse deficits. Respiratory: Lungs have equal breath sounds bilaterally, clear to auscultation and percussion. No rales, rhonchi or wheezes noted. No increased work of breathing, no retractions or nasal flaring. Abdomen/GI: Soft, non-tender, with normal bowel sounds. No distension or tympany. No guarding or rebound. No evidence of tenderness throughout. Back: No spinal tenderness. No costovertebral tenderness. Full range of motion. Male : Normal genitalia with no discharge or lesions. MS/ Extremity: Pulses equal, no cyanosis. Neurovascular intact. Full, normal range of motion. Neuro: Awake and alert, GCS 15, oriented to person, place, time, and situation. Cranial nerves II-XII grossly intact. Motor strength 5/5 in all extremities. Sensory grossly intact. Cerebellar exam normal. Normal gait. Psych: Awake, alert, with orientation to person, place and time. Behavior, mood, and affect are within normal limits. 20:24 Skin: abscess, that is moderate sized, of the right subscapular area, cellulitis. Vital Signs: 20:23 BP 133 / 75; Pulse 87; Resp 16 S; Temp 98.8(O); Pulse Ox 97% on R/A; Weight 95.25 kg ca1 (R); Height 6 ft. 2 in. (187.96 cm) (R); Pain 6/10; 21:40 BP 146 / 70; Pulse 87; Resp 18; Temp 98.3; Pulse Ox 99% ; Pain 6/10; jv1 20:23 Body Mass Index 26.96 (95.25 kg, 187.96 cm) ca1 Procedures: 20:24 I \T\ D: Incision and drainage was performed for an abscess of the right subscapular area shandra and back Prepped with Betadine, Anesthetized with 10 ml's 1% Lidocaine w/ Epi. Incised with #11 blade. Drained moderate amount Packed with iodoform gauze, Dressing: sterile 4x4 gauze. MDM: 20:14 Patient medically screened. [facility] 20:24 Data reviewed: vital signs, nurses notes, lab test result(s). [facility] 06/08 20:23 Order name: Wound Culture [facility] 06/08 20:23 Order name: Wound Culture [facility] 06/08 20:56 Order name: Glucose, Ancillary Testing [facility] 06/08 20:23 Order name: Blood Glucose Level; Complete Time: 21:31 [facility] 06/08 20:23 Order name: Dressing - Wound; Complete Time: 20:37 [facility] 06/08 20:23 Order name: Gloves, Sterile; Complete Time: 20:37 [facility] 06/08 20:23 Order name: Setup Suture Tray; Complete Time: 20:37 [facility] Administered Medications: 20:43 Drug: Doxycycline 200 mg Route: PO; jv1 21:31 Follow up: Response: No adverse reaction [facility] 21:38 Follow up: Response: No adverse reaction jv1 20:43 Drug: Bactrim (160 mg-800 mg (DS) 1 tablet Route: PO; jv1 21:31 Follow up: Response: No adverse reaction mg2 21:38 Follow up: Response: No adverse reaction jv1 21:00 Drug: Lidocaine-Epinephrine -1%: (1:100,000) 10 ml {Note: administered by the mg2 provider.} Volume: 20 ml; Route: Infiltration; 21:43 Follow up: Response: No adverse reaction mg2 21:56 Follow up: Response: No adverse reaction jv1 21:42 Drug: [place] 10 mg-325 mg 1 tabs Route: PO; mg2 21:42 Follow up: Response: No adverse reaction; Medication administered at discharge. mg2 21:56 Follow up: Response: No adverse reaction; RASS: Alert and Calm (0) jv1 Disposition: 06/08/19 20:56 Discharged to Home. Impression: Cutaneous abscess of back [any part, except buttock], Type 1 diabetes mellitus. - Condition is Stable. - Discharge Instructions: Skin Abscess, Type 1 Diabetes Mellitus, Diagnosis, Adult, Incision and Drainage, Skin Abscess, [id number], Incision and Drainage, Care After. - Prescriptions for Tylenol- Codeine #3 300-30 mg Oral Tablet - take 2 tablet by ORAL route every 6 hours As needed; 30 tablet. Doxycycline Hyclate 100 mg Oral Tablet - take 1 tablet by ORAL route every 12 hours; 20 tablet. Bactrim DS 800- 160 mg Oral Tablet - take 1 tablet by ORAL route every 12 hours for 10 days; 20 tablet. - Medication Reconciliation Form, Thank You Letter, Antibiotic Education, Prescription Opioid Use form. - Follow up: Private Physician; When: 2 - 3 days; Reason: Recheck today's complaints, Continuance of care, Re-evaluation by your physician. Follow up: Venkata Quiles MD; When: 1 - 2 days; Reason: Recheck today's complaints, Continuance of care, Re-evaluation by your physician. - Problem is new. - Symptoms have improved. Signatures: Dispatcher [employer] Rashi Luciano MD MD cha Gardose, Michele, RN RN mg2 Joie Cotto RN RN jv1 Eugenia Finley RN RN ca1 Corrections: (The following items were deleted from the chart) 20:50 20:23 PSHx: None; ca1 ca1 21:57 20:56 06/08/2019 20:56 Discharged to Home. Impression: Cutaneous abscess of back [any jv1 part, except buttock]; Type 1 diabetes mellitus. Condition is Stable. Discharge Instructions: Skin Abscess, Type 1 Diabetes Mellitus, Diagnosis, Adult, Incision and Drainage, Skin Abscess, [id number], Incision and Drainage, Care After. Prescriptions for Tylenol-Codeine #3 300-30 mg Oral Tablet - take 2 tablet by ORAL route every 6 hours As needed; 30 tablet, Doxycycline Hyclate 100 mg Oral Tablet - take 1 tablet by ORAL route every 12 hours; 20 tablet, Bactrim DS 800-160 mg Oral Tablet - take 1 tablet by ORAL route every 12 hours for 10 days; 20 tablet. and Forms are Medication Reconciliation Form, Thank You Letter, Antibiotic Education, Prescription Opioid Use. Follow up: Private Physician; When: 2 - 3 days; Reason: Recheck today's complaints, Continuance of care, Re-evaluation by your physician. Follow up: Venkata Quiles; When: 1 - 2 days; Reason: Recheck today's complaints, Continuance of care, Re-evaluation by your physician. Problem is new. Symptoms have improved. shandra
[2019-06-08] MEDS ORDERED: HYDROCODONE/APAP 10/325 TAB ONE (21:43)
[2019-06-09 01:44] VITALS: BP 146/70; TEMP 98.3; O2SAT 99
== END 2019-06-08 21:57 | disposition home or self-care (01) ==
LOC: ER 20:05
PROC: 0H96XZZ Drainage of Back Skin, External Approach (ICD-10-PCS; principal; 2019-06-08)
DX: L03.312 Cellulitis of back [any part except buttock and flank] (principal); E10.9 Type 1 diabetes mellitus without complications; I10 Essential (primary) hypertension
CPT/HCPCS: 82947; 87070; 87205; 99284

== ENCOUNTER 2019-07-23 21:02 | Inpatient (IN) | payer BC ==
[2019-07-23 22:13] LABS: Absolute Lymphocytes (CBC) 1.7 K/uL (0.7-4.9); Basophils % 0.9 % (0-1.3); Hematocrit 40.7 % (39.6-49.0); Lymphocytes % 27.6 % (15.3-44.8); MPV 7.7 fL (7.6-11.3); RBC Red Blood Cell Count 5.02 M/uL (4.33-5.43)
[2019-07-23] MEDS ORDERED: PIPER/TAZO/NS 3.375gm 3.375 GM/100 ML BAG ONE (22:19)
[2019-07-23 22:32] LABS: Protime INR 0.99
[2019-07-23 22:33] LABS: Albumin 3.9 g/dL (3.4-5.0); Bilirubin Direct 0.1 mg/dL (0-0.2); Bilirubin Total 0.3 mg/dL (0.2-1.0); Potassium 3.7 mmol/L (3.5-5.1); Protein, Total 8.1 g/dL (6.4-8.2)
[2019-07-23] MEDS ORDERED: VANCOMYCIN 1 GM/VIAL ONE (22:50)
[2019-07-23] MEDS ORDERED: NA CHLORIDE 0.9% 250 ML ONE (22:50)
--- NOTE | 2019-07-23 23:28 | ER ---
Nurse's Notes [facility] Name: Zeke Mackay Sr Age: 54 yrs Sex: Male : 1965 Arrival Date: 07/23/2019 Time: 21:03 Bed 26 Private MD: Diagnosis: Cellulitis of left lower limb Presentation: 07/22 21:28 Chief complaint: Patient states: he thinks his left foot is infected again. Pt states wh Hx of diabetic wound on left foot since November. Pt C/O foul smelling odor and warmth on affected foot. Coronavirus screen: The patient has NOT traveled to a country currently being monitored by the [facility] within the last 14 days. Ebola Screen: Patient negative for fever greater than or equal to 101.5 degrees Fahrenheit, and additional compatible Ebola Virus Disease symptoms Patient denies exposure to infectious person. Initial Sepsis Screen: Does the patient meet any 2 criteria? No. Patient's initial sepsis screen is negative. Does the patient have a suspected source of infection? Yes: Skin breakdown/wound. Risk Assessment: Do you want to hurt yourself or someone else? Patient reports no desire to harm self or others. 21:28 Method Of Arrival: Ambulatory 21:28 Acuity: RICKEY 3 21:34 Onset of symptoms is unknown. 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 - Social history:: Smoking status: Patient/guardian denies using. Screenin:30 Abuse screen: Denies threats or abuse. Denies injuries from another. Nutritional screening: No deficits noted. Tuberculosis screening: No symptoms or risk factors identified. Fall Risk None identified. Assessment: 21:34 General: Appears in no apparent distress. Behavior is calm, cooperative, appropriate for age. Pain: Denies pain. Neuro: Level of Consciousness is awake, alert, obeys commands, Oriented to person, place, time, situation, Appropriate for age Reports Neuropathy. Cardiovascular: Heart tones S1 S2. Respiratory: Airway is patent Respiratory effort is even, unlabored, Respiratory pattern is regular, symmetrical, Breath sounds are clear bilaterally. GI: Abdomen is flat, non-distended. : No signs and/or symptoms were reported regarding the genitourinary system. EENT: No signs and/or symptoms were reported regarding the EENT system. Derm: Wound noted heel of left foot. Musculoskeletal: Circulation, motion, and sensation intact. 22:51 Reassessment: Patient appears in no apparent distress at this time. No changes from previously documented assessment. Patient and/or family updated on plan of care and expected duration. Pain level reassessed. Patient is alert, oriented x 3, equal unlabored respirations, skin warm/dry/pink. 07/23 00:26 Reassessment: Patient appears in no apparent distress at this time. Patient and/or rv family updated on plan of care and expected duration. Pain level reassessed. Patient is alert, oriented x 3, equal unlabored respirations, skin warm/dry/pink. CALLED REPORT TO KARO RN. UPDATED THE PATIENT ON WAITING TIME. IV ACCESS FLUSHING FREELY. NO SIGNS OF INFILTRATION UPON TRANSFER. Vital Signs: 07/22 21:28 BP 153 / 82; Pulse 73; Resp 18; Temp 98.8; Pulse Ox 96% ; Weight 95.25 kg; Height 6 ft. 2 in. (187.96 cm); 22:51 BP 144 / 72; Pulse 64; Resp 18; Pulse Ox 96% on R/A; 23:30 BP 134 / 73; Pulse 69; Resp 16; Pulse Ox 98% on R/A; rv 07/23 00:25 BP 153 / 75; Pulse 66; Resp 15; Temp 98.8; Pulse Ox 98% on R/A; rv 07/22 21:28 Body Mass Index 26.96 (95.25 kg, 187.96 cm) Alicia Coma Score: 00:26 Eye Response: spontaneous(4). Verbal Response: oriented(5). Motor Response: obeys rv commands(6). Total: 15. ED Course: 07/22 21:03 Patient arrived in ED. cl3 21:10 Fred Jacob MD is Attending Physician. tw4 21:20 Darrell Lujan is Primary Nurse. 21:30 Triage completed. 21:35 Arm band placed on right wrist. 21:35 Patient has correct armband on for positive identification. Bed in low position. Call light in reach. Side rails up X 1. Pulse ox on. NIBP on. 21:54 Foot Right 3 View XRAY In Process Unspecified. EDMS 22:00 Inserted saline lock: 20 gauge in right forearm, using aseptic technique. BY DARRELL MORRIS. rv 23:27 Amanda Johnson MD is Hospitalizing Provider. [facility] 07/23 00:26 No provider procedures requiring assistance completed. IV is patent, with fluids rv infusing freely, with good blood return, Patient admitted, IV remains in place. Administered Medications: 07/22 22:10 Drug: Zosyn 3.375 grams Route: IVPB; Infused Over: 60 mins; Site: right forearm; 07/23 00:25 Follow up: IV Status: Completed infusion rv 07/22 23:10 Drug: vancoMYCIN 1 grams Route: IVPB; Infused Over: 2 hrs; Site: right forearm; 07/23 00:25 Follow up: IV Status: Infusion continued upon admission rv Outcome: 07/22 23:27 Decision to Hospitalize by Provider. [facility] 07/23 00:26 Admitted to Med/surg accompanied by nurse, via wheelchair, room 209, with chart, Report rv called to KARO RN Condition: good Discharge instructions given to patient, Instructed on the need for admit, Demonstrated understanding of instructions. 00:38 Patient left the ED. rv Signatures: Dispatcher [employer] EDNH Darrell Lujan Fred Jacob MD MD tw4 Joauqim Cotto RN RN rv Sharon De La Paz cl3
--- NOTE | 2019-07-23 23:29 | EDPHYS ---
Physician Documentation [facility] Name: Zeke Mcakay Sr Age: 54 yrs Sex: Male : 1965 Arrival Date: 07/23/2019 Time: 21:03 Bed 26 Private MD: ED Physician Fred Jacob HPI: 07/23 01:17 This 54 yrs old Male presents to ER via Ambulatory with complaints of tw4 Infected Foot. 01:17 The patient presents with pain, that is acute, tenderness. The complaints affect the tw4 left foot. Onset: The symptoms/episode began/occurred yesterday. Modifying factors: The symptoms are alleviated by nothing, the symptoms are aggravated by nothing. Severity of symptoms: At their worst the symptoms were moderate, in the emergency department the symptoms are unchanged. The patient has experienced similar episodes in the past, chronically. 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 - Social history:: Smoking status: Patient/guardian denies using. ROS: 07/23 01:17 MS/extremity: Positive for tenderness, warmth, Negative for injury or acute deformity, tw4 abrasion, decreased range of motion, deformity, ecchymosis, erythema, laceration. Constitutional: Negative for fever, chills, and weight loss, Eyes: Negative for injury, pain, redness, and discharge, Neck: Negative for injury, pain, and swelling, Cardiovascular: Negative for chest pain, palpitations, and edema, Respiratory: Negative for shortness of breath, cough, wheezing, and pleuritic chest pain, Abdomen/GI: Negative for abdominal pain, nausea, vomiting, diarrhea, and constipation, Back: Negative for injury and pain, Skin: Negative for injury, rash, and discoloration, Neuro: Negative for headache, weakness, numbness, tingling, and seizure. Exam: 01:17 Constitutional: This is a well developed, well nourished patient who is awake, alert, tw4 and in no acute distress. Head/Face: Normocephalic, atraumatic. Chest/axilla: Normal chest wall appearance and motion. Nontender with no deformity. No lesions are appreciated. Cardiovascular: Regular rate and rhythm with a normal S1 and S2. No gallops, murmurs, or rubs. Normal PMI, no JVD. No pulse deficits. Respiratory: Lungs have equal breath sounds bilaterally, clear to auscultation and percussion. No rales, rhonchi or wheezes noted. No increased work of breathing, no retractions or nasal flaring. Abdomen/GI: Soft, non-tender, with normal bowel sounds. No distension or tympany. No guarding or rebound. No evidence of tenderness throughout. 01:17 Skin: cellulitis, that is mild, irregular, on the lateral side of left heel and left Achilles. Vital Signs: 07/22 21:28 BP 153 / 82; Pulse 73; Resp 18; Temp 98.8; Pulse Ox 96% ; Weight 95.25 kg; Height 6 ft. 2 in. (187.96 cm); 22:51 BP 144 / 72; Pulse 64; Resp 18; Pulse Ox 96% on R/A; 23:30 BP 134 / 73; Pulse 69; Resp 16; Pulse Ox 98% on R/A; rv 07/23 00:25 BP 153 / 75; Pulse 66; Resp 15; Temp 98.8; Pulse Ox 98% on R/A; rv 07/22 21:28 Body Mass Index 26.96 (95.25 kg, 187.96 cm) [place] Coma Score: 00:26 Eye Response: spontaneous(4). Verbal Response: oriented(5). Motor Response: obeys rv commands(6). Total: 15. MDM: 07/22 21:10 Patient medically screened. tw4 07/23 01:17 Differential diagnosis: fracture, arthritis. Data reviewed: vital signs, nurses notes. tw4 Data reviewed: lab test result(s), CBC, electrolytes, hepatic panel. Data interpreted: Pulse oximetry: Interpretation: normal. Counseling: I had a detailed discussion with the patient and/or guardian regarding: the historical points, exam findings, and any diagnostic results supporting the discharge/admit diagnosis, lab results, radiology results. Physician consultation: Amanda Johnson MD regarding admission, to the medical/surgical unit. patient's condition, and will see patient in ED. 07/22 21:11 Order name: Amylase, Serum; Complete Time: 23:20 [facility] 07/22 23:20 Interpretation: DANDRE 49. [facility] 07/22 21:11 Order name: Basic Metabolic Panel; Complete Time: 23:19 [facility] 07/22 23:19 Interpretation: Normal except: GLUC 245; GFR 73. 07/22 21:11 Order name: Blood Culture Adult (2) [facility] 07/22 21:11 Order name: CBC with Diff; Complete Time: 23:19 [facility] 07/22 23:19 Interpretation: Normal except: HGB 13.0; MCH 26.0. 07/22 21:11 Order name: Lactate; Complete Time: 23:20 [facility] 07/22 23:20 Interpretation: Within normal limits: LAC 1.2. [facility] 07/22 21:11 Order name: LFT's; Complete Time: 23:19 [facility] 07/22 23:19 Interpretation: Normal except: GLOB 4.2; A/G 0.9. [facility] 07/22 21:11 Order name: Lipase; Complete Time: 23:20 [facility] 07/22 23:20 Interpretation: Within normal limits: LIP 111. 07/22 21:11 Order name: Procalcitonin; Complete Time: 23:20 [facility] 07/22 23:20 Interpretation: Procalcitonin < 0.05. [facility] 07/22 21:11 Order name: Protime (+inr); Complete Time: 23:20 [facility] 07/22 21:11 Order name: Ptt, Activated; Complete Time: 23:21 [facility] 07/22 21:11 Order name: Urine Microscopic Only 07/22 21:12 Order name: Foot Right 3 View XRAY 07/22 22:22 Order name: Glucose, Ancillary Testing; Complete Time: 23:19 [facility] 07/22 23:19 Interpretation: Normal except: GLUC,ANCIL 224. [facility] 07/22 21:11 Order name: Accucheck; Complete Time: 22:08 [facility] 07/22 21:11 Order name: Cardiac monitoring; Complete Time: 22:08 [facility] 07/22 21:11 Order name: IV Saline Lock - Large Bore; Complete Time: 22:08 tw4 07/22 21:11 Order name: Labs collected and sent; Complete Time: 22:08 tw4 07/22 21:11 Order name: O2 Per Protocol; Complete Time: 22:08 tw4 07/22 21:11 Order name: O2 Sat Monitoring; Complete Time: 22:08 tw4 Administered Medications: 07/22 22:10 Drug: Zosyn 3.375 grams Route: IVPB; Infused Over: 60 mins; Site: right forearm; 07/23 00:25 Follow up: IV Status: Completed infusion rv 07/22 23:10 Drug: vancoMYCIN 1 grams Route: IVPB; Infused Over: 2 hrs; Site: right forearm; 07/23 00:25 Follow up: IV Status: Infusion continued upon admission rv Disposition: 07/23/19 23:27 Hospitalization ordered by Amanda Johnson for Observation. Preliminary diagnosis is Cellulitis of left lower limb. - Bed requested for Telemetry/MedSurg (observation). - Status is Observation. rv - Condition is Stable. - Problem is an ongoing problem. - Symptoms are unchanged. Signatures: Dispatcher [employer] Darlene Olivo, RN RN Darrell Lujan Fred Jacob MD MD [facility] Joaquim Cotto RN RN rv Corrections: (The following items were deleted from the chart) 07/22 23:52 23:27 Hospitalization Ordered by Amanda Johnson MD for Observation. Preliminary cg diagnosis is Cellulitis of left lower limb. Bed requested for Telemetry/MedSurg (observation). Status is Observation. Condition is Stable. Problem is an ongoing problem. Symptoms are unchanged. 4 07/23 00:38 07/22 23:52 07/23/2019 23:27 Hospitalization Ordered by Amanda Johnson MD for rv Observation. Preliminary diagnosis is Cellulitis of left lower limb. Bed requested for Telemetry/MedSurg (observation). Status is Observation. Condition is Stable. Problem is an ongoing problem. Symptoms are unchanged. cg
[2019-07-23] MEDS ORDERED: ALBUTEROL 2.5 MG/3 ML NEB SOL NEB PRN (23:44)
[2019-07-23] MEDS ORDERED: MORPHINE 2 MG/ML SYR IV PRN (23:44)
[2019-07-23] MEDS ORDERED: ONDANSETRON 4 MG/2 ML VIAL IV PRN (23:44)
[2019-07-23] MEDS ORDERED: VANCOMYCIN 1.25 GM in NA CHLORIDE 0.9% 250 ML IVPB SCH (23:45)
[2019-07-23] MEDS ORDERED: HYDRALAZINE HCL 20 MG/ML VIAL IV PRN (23:46)
[2019-07-24 01:14] VITALS: BMI 26.8
[2019-07-24] MEDS: NA CHLORIDE 0.9% 1,000 ML IV SCH ×2 (01:30→09:45)
[2019-07-24 02:51] LABS: Urine Appearance CLEAR; Urine Bilirubin NEGATIVE (NEG); Urine Blood NEGATIVE (NEG); Urine Color YELLOW; Urine Glucose 3+ (NEG); Urine Protein NEGATIVE (NEG); Urine Specific Gravity >=1.030 (1.005-1.030); Urine Urobilinogen 0.2 mg/dL (0.2-1.0); Urine pH 5.5 (5.0-7.0)
[2019-07-24 03:03] LABS: Urine Microscopic Reflex NO UMIC
[2019-07-24 05:49] LABS: Absolute Lymphocytes (CBC) 1.9 K/uL (0.7-4.9); Basophils % 1.1 % (0-1.3); Hematocrit 37.5 % (39.6-49.0); Lymphocytes % 33.5 % (15.3-44.8); MPV 7.8 fL (7.6-11.3); RBC Red Blood Cell Count 4.65 M/uL (4.33-5.43)
[2019-07-24 06:00] LABS: ALT/SGPT 30 U/L (12-78); AST/SGOT 22 U/L (15-37); Albumin 3.3 g/dL (3.4-5.0); Alkaline Phosphatase 62 U/L (45-117); BUN Blood Urea Nitrogen 15 mg/dL (7-18); Bicarbonate 26 mmol/L (21-32); Bilirubin Total 0.5 mg/dL (0.2-1.0); Glucose Level 113 mg/dL (74-106); Potassium 3.6 mmol/L (3.5-5.1); Sodium Level 138 mmol/L (136-145)
--- NOTE | 2019-07-24 06:54 | HP ---
Date of Admission: 07/24/2019 Presenting Complaint: Left heel ulcer with drainage. History Of Present Illness: Zeke Mackay is a -year-old with history of hypertension, di abetes mellitus with neuropathy, recurrent nonhealing ulcer over the left heel, status post previous osteomyelitis for which he received prolonged antibiotics at the [facility] 3 months ago. He has been foll owing with Dr. Ryan as outpatient. He was last seen there 1 month ago and was told the wound was h ealing, but patient noticed new drainage from the ulcer and has presented to the ED. He denies any f ever or chills. The patient has history of recurrent back as well as left hallux osteomyelitis in th e past. He admit to control of his glucose better now too. Past Medical History: In the ED, he was admitted for evaluation by Dr. Ryan. Allergies: NO KNOWN DRUG ALLERGY. Home Medications: Insulin 70/30, cholecalciferol, lisinopril, metformin, and Synthroid, Farxiga. Past Surgical History: Right third digit amputation, cervical fusions, appendectomy. Allergies: NO KNOWN DRUG ALLERGIES. Family History: Noncontributory. Social History: Patient denies any tobacco use and denies alcohol use. He resides in the community with the spouse. Review of Systems: All other systems reviewed x14 were negative. Physical Examination: Current Vital Signs: Blood pressure of 153/75, pulse of 66, respiratory rate of 15, temperature 98.8 , O2 saturation 98 on room air. General: Average build, middle-aged male, not in any distress. HEENT: Head atraumatic, normocephalic. Pupils equal, reactive to light. Extraocular motor movement intact. Neck: No JVD. No carotid bruit. Respiratory: Good air entry. No crepitation. Cardiovascular: S1, S2. Rate and rhythm regular. GI: Abdomen is full, soft, nontender. Bowel sounds positive. Extremities: No pedal edema. Small left anterior heel abrasion appears healing penetrating coin sha pe ulcer/deep coin shape ulcer at the heel of the left foot. No drainage noted. No surrounding eryt felipe streak noted. Neuro: Patient is alert, oriented. Cranial nerves 2 through 12 grossly intact. Laboratory Data: WBC 6.2, hemoglobin 13, neutrophils 61%. INR 0.9, glucose 245, potassium 3.7, bonnie line phosphatase 72, albumin 3.9, potassium 3.7. Procalcitonin less than 0.05. Urinalysis was essen tially negative except for glucose. Foot x-ray shows no evidence of osteomyelitis, official read is pending. Impression: 1.Persistent nonhealing left heel ulcer. Doubt evidence of cellulitis. 2.Hypertension. 3.Diabetes mellitus. 4.Hyperlipidemia. Plan: We will admit patient to observation. We consult ID/Wound Care with Dr. Ryan. If Dr. Cecy summers is not available. The patient might be discharged to follow with him in clinic after the weekend. We can start patient on vancomycin now since low procalcitonin as well as no evidence of erythema ar ound the area. I do not think the patient have significant cellulitis, just the deep wound. We will , however, consult surgery to consider debridement since the ulcer appeared deep. We will do subcuta neous Lovenox for DVT prophylaxis. Resume home patient medication regimen. Insulin sliding scale wi home medications for the diabetes control. Advanced directive, patient is full code. EO/MODL Voice ID: [id number]
[2019-07-24] MEDS: INSULIN -REGULAR HUMAN 50 UNIT/0.5 ML ML SQ SCH ×4 (07:30→20:13)
[2019-07-24] MEDS ORDERED: METFORMIN HCL 500 MG TAB PO SCH (09:00)
[2019-07-24] MEDS ORDERED: THYROID 30 MG TAB PO SCH (09:00)
[2019-07-24] MEDS ORDERED: lisinopriL 10 MG TAB PO SCH (09:00)
[2019-07-24] MEDS: FAMOTIDINE 20 MG TAB PO SCH ×2 (09:00→20:13)
[2019-07-24] MEDS: ENOXAPARIN 40 MG/0.4 ML SQ SCH ×2 (09:00→14:19)
--- NOTE | 2019-07-24 09:57 | P.PN ---
Subjective Date of Service: 07/24/19 Primary Care Provider: Dr. Mcbride; ID-Dr. Ryan, [facility]ocrine-[place], [place] Chief Complaint: Left heel ulcer, nonhealing Subjective: Improving, Doing well Physical Examination - Vital Signs Temperature: 97.2 F Blood Pressure: 146/67 Pulse: 64 Respirations: 18 Pulse Ox (%): 97 - Physical Exam General: Alert, In no apparent distress, Oriented x3, Cooperative HEENT: Atraumatic Neck: Supple Respiratory: Clear to auscultation bilaterally, Normal air movement Cardiovascular: Normal pulses, Regular rate/rhythm Integumentary: Other (Ulcer to the left heel appears chronic. No erythema, pain.) Neurological: Normal speech, Normal strength at 5/5 x4 extr, Normal tone, Normal affect - Studies Laboratory Data (last 24 hrs) 07/23/19 22:00: PT 11.7, INR 0.99, APTT 34.5 07/23/19 22:00: WBC 6.2, Hgb 13.0 L, Hct 40.7, Plt Count 303 07/23/19 22:00: Sodium 136, Potassium 3.7, BUN 18, Creatinine 1.05, Glucose 245 H, Total Bilirubin 0.3, AST 28, ALT 33, Alkaline Phosphatase 72, Amylase 49, Lipase 111 Medications List Reviewed: Yes Assessment & Plan Discharge Plan: Home Plan to discharge in: 24 Hours Physician Review Additional Text: Impression: Chronic diabetic heel ulcer Diabetes mellitus type 2 insulin-dependent with hyperglycemia Hypertension Diabetic neuropathy Hypothyroidism Plan: Chronic diabetic heel ulcer: Patient sees Infectious Disease as an outpatient. Will consult infectious disease for further recommendation. Will order MRI to rule out osteomyelitis. Will also have surgery evaluate patient. Possible debridement at bedside. If workup unremarkable possible discharge today with wound care and antibiotic therapy. Will discuss with surgery and infectious disease. Diabetes mellitus type 2 insulin-dependent with hyperglycemia: Will need to obtain and restart home medication. Will monitor closely. Will start basal insulin. Will obtain A1c. Patient sees Endocrinology as an outpatient. Hypertension: Restart home medication. Will monitor adjust appropriately. Diabetic neuropathy: Restart home medication. Hypothyroidism: Restart home medication. Time Spent Managing Pts Care (In Minutes): 55
--- NOTE | 2019-07-24 11:27 | RAD REPORT ---
EXAM DESCRIPTION: MRI - Foot Left Wo Cont - 07/24/2019 11:03 am CLINICAL HISTORY: Left foot pain and swelling. Soft tissue ulceration. COMPARISON: 2019 TECHNIQUE: Axial, sagittal and coronal magnetic resonance imaging left foot FINDINGS: Ulceration involves the posterior plantar soft tissue. Small area of abnormal signal invol ves the underlying inferior posterior calcaneus consistent with osteomyelitis. The abnormal signal involving the first distal and first proximal phalanx described on the prior exam has resolved Cortical regularity involving the distal aspect of the first proximal phalanx compatible with an old fracture IMPRESSION: Small area of osteomyelitis involves the calcaneus
--- NOTE | 2019-07-24 11:28 | RAD REPORT ---
EXAM DESCRIPTION: RAD - Foot Left 3 View - 07/24/2019 8:43 am CLINICAL HISTORY: Right foot pain FINDINGS: Ulceration involves the plantar posterior soft tissues. Cortical regularity involves the adjacent calcaneus probably osteomyelitis. Cortical regularity involves the distal aspect of the first proximal phalanx secondary to an old frac ture
[2019-07-24] MEDS: VANCOMYCIN 1.75 GM in NA CHLORIDE 0.9% 500 ML IVPB SCH ×2 (12:27→22:23)
[2019-07-24] MEDS: SILVER SULFADIAZINE 1% 50 GM TOP SCH ×2 (12:32→20:13)
[2019-07-24] MEDS: CEFEPIME/SWI 1gm 10 ML IV SCH ×2 (14:15→20:13)
[2019-07-24] MEDS ORDERED: D50W 25 GM/50 ML SYRINGE/VIAL IV PRN (14:56)
[2019-07-24] MEDS ORDERED: GLUCAGON 1 MG/VIAL IM PRN (14:56)
[2019-07-24] MEDS ORDERED: ALBUTEROL 2.5 MG/3 ML NEB SOL NEB PRN (15:00)
--- NOTE | 2019-07-24 15:22 | CON ---
History Of Present Illness: Patient is a 54-year-old male, known to me from previous admissions when he was treated for osteomyelitis and diabetic foot ulcer. Patient is now here with left heel infect ed diabetic ulcer, which is being treated currently with IV antibiotics. Patient did not complain of any fevers, but having some discomfort to his left leg, for which he was brought into the hospital. Patient is being followed off and on by [facility]. It has been few weeks that I s aw this patient in the [facility] when the wound was doing well. Past Medical History: Diabetes mellitus, diabetic neuropathy, diabetic ulcer, history of osteomyelit is. Social History: Nonsmoker, nondrinker. 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 Patient also is being followed by estate planning paralegal for his sugar control, but his hemoglobin A1c is 9. Family History: Noncontributory. Medications: Currently being treated with vancomycin. See MAR for other medication. Allergies: NO KNOWN DRUG ALLERGIES. Review of Systems: 10-point review was performed. Physical Examination: General: This is a 54-year-old male, lying in bed, not in any acute cardiopulmonary distress. Vital Signs: Temperature 97, pulse 64, respirations 18, blood pressure 146/67. HEENT: Unremarkable. Neck: Supple. Lungs: Clear to auscultation. Heart: S1, S2. Regular. Abdomen: Soft. Bowel sounds present. Extremities: No edema. Left heel wound with 1 x 1 cm and 1 cm in depth with undermining of the woun d noted from 11 to 1 about 1 cm also. Patient also has surrounding area, which was pale yellow and v chana hard. No excessive discharge noted at the wound site. No foul odor at this time. Patient has b een getting wound dressing with normal saline packing. Laboratory Data: WBC 5.7, hemoglobin 12.2, platelets are 271. Chemistry shows sodium 138, potassium 3.6, chloride 107, bicarb 26, BUN 15, creatinine 0.8, glucose is 113. Albumin level is 3.3. Sugars running around 200s and hemoglobin A1c of 9. Procalcitonin is 0.05. Blood cultures are pending. W ound cultures are pending. Awaiting MRI of his left foot. Assessment And Plan: Diabetic neuropathy with diabetic foot ulcer to the left heel, infected compare d to what I saw last time at [facility]. X-ray shows signs of osteomyelitis with bony destruc tion. We will continue vancomycin. Also add patient on cefepime to give him gram-negative coverage. Total course of 6 weeks is recommended at this time. We will follow patient closely. Thank you Dr. Miranda and Dr. Johnson for consult. YOANA/LARISSA Voice ID: [id number] Report ID: [id number]
[2019-07-24] MEDS: INSULIN GLARGINE 100 UNITS/ML SQ SCH (16:33)
[2019-07-24] MEDS: METFORMIN HCL 500 MG TAB PO SCH (16:34)
[2019-07-24] MEDS: LACTOBACILLUS/ACIDOPHILUS TAB PO SCH (20:13)
[2019-07-24] MEDS: JUVEN PACKET PO SCH (20:13)
[2019-07-24] MEDS: [UNRECOGNIZED DRUG - OTHER] PO SCH (21:00)
[2019-07-24] MEDS ORDERED: CEFEPIME 1 GM/VIAL IV SCH (21:00)
[2019-07-25 04:45] LABS: Absolute Lymphocytes (CBC) 1.6 K/uL (0.7-4.9); Basophils % 1.2 % (0-1.3); Lymphocytes % 29.2 % (15.3-44.8); MPV 7.8 fL (7.6-11.3); RBC Red Blood Cell Count 4.73 M/uL (4.33-5.43)
[2019-07-25 04:52] LABS: BUN Blood Urea Nitrogen 18 mg/dL (7-18); Bicarbonate 29 mmol/L (21-32); Glucose Level 120 mg/dL (74-106); Sodium Level 141 mmol/L (136-145)
[2019-07-25] MEDS: INSULIN -REGULAR HUMAN 50 UNIT/0.5 ML ML SQ SCH ×4 (07:30→21:00)
[2019-07-25] MEDS: ATORVASTATIN 20 MG TAB PO SCH (08:08)
[2019-07-25] MEDS: FAMOTIDINE 20 MG TAB PO SCH ×2 (08:08→22:41)
[2019-07-25] MEDS: ENOXAPARIN 40 MG/0.4 ML SQ SCH (08:08)
[2019-07-25] MEDS: METFORMIN HCL 500 MG TAB PO SCH ×2 (08:08→17:40)
[2019-07-25] MEDS: ASPIRIN 81 MG CHEWABLE TABLET PO SCH (08:08)
[2019-07-25] MEDS: LACTOBACILLUS/ACIDOPHILUS TAB PO SCH ×3 (08:09→22:41)
[2019-07-25] MEDS: MULTIVITAMIN TAB PO SCH (08:09)
[2019-07-25] MEDS: CEFEPIME/SWI 1gm 10 ML IV SCH ×2 (08:11→22:41)
[2019-07-25] MEDS: [UNRECOGNIZED DRUG - OTHER] PO SCH ×2 (08:18→21:00)
[2019-07-25] MEDS: SILVER SULFADIAZINE 1% 50 GM TOP SCH ×2 (08:19→21:00)
[2019-07-25] MEDS: JUVEN PACKET PO SCH ×2 (08:19→21:00)
--- NOTE | 2019-07-25 11:06 | P.PN ---
Subjective Date of Service: 07/25/19 (Hospitalist) Primary Care Provider: Dr. Mcbride; ID-Dr. Ryan, [facility], [place] Chief Complaint: Left heel ulcer, nonhealing Subjective: Improving (Patient is improving denies any discomfort does have osteomyelitis of the left foot) Review of Systems Unremarkable Physical Examination - Vital Signs Temperature: 98 F Blood Pressure: 148/70 Pulse: 65 Respirations: 18 Pulse Ox (%): 95 - Physical Exam General: Alert, Oriented x3 HEENT: Atraumatic Neck: Supple Respiratory: Clear to auscultation bilaterally - Studies Medications List Reviewed: Yes Assessment & Plan - Problems (Diagnosis) (1) Osteomyelitis Current Visit: No Status: Acute Plan: : Patient is a diabetic foot ulcer on the left heel he does have osteomyelitis by MRI seen by infectious disease/no complaints right now continue with present therapy possible LTAC transfer Left heel is positive for gram-negative rods cefepime has been added hemodynamically stable Qualifiers: Osteomyelitis type: other acute Osteomyelitis location: foot Laterality: left Qualified Code(s): M86.172 - Other acute osteomyelitis, left ankle and foot Physician Review Additional Text: Impression: Chronic diabetic heel ulcer Diabetes mellitus type 2 insulin-dependent with hyperglycemia Hypertension Diabetic neuropathy Hypothyroidism Plan: Chronic diabetic heel ulcer: Patient sees Infectious Disease as an outpatient. Will consult infectious disease for further recommendation. Will order MRI to rule out osteomyelitis. Will also have surgery evaluate patient. Possible debridement at bedside. If workup unremarkable possible discharge today with wound care and antibiotic therapy. Will discuss with surgery and infectious disease. Diabetes mellitus type 2 insulin-dependent with hyperglycemia: Will need to obtain and restart home medication. Will monitor closely. Will start basal insulin. Will obtain A1c. Patient sees Endocrinology as an outpatient. Hypertension: Restart home medication. Will monitor adjust appropriately. Diabetic neuropathy: Restart home medication. Hypothyroidism: Restart home medication.
[2019-07-25] MEDS: VANCOMYCIN 1.75 GM in NA CHLORIDE 0.9% 500 ML IVPB SCH (11:58)
[2019-07-25] MEDS: INSULIN GLARGINE 100 UNITS/ML SQ SCH (21:00)
[2019-07-26] MEDS: VANCOMYCIN 1.75 GM in NA CHLORIDE 0.9% 500 ML IVPB SCH ×3 (04:14→23:00)
[2019-07-26 05:56] LABS: Absolute Lymphocytes (CBC) 1.8 K/uL (0.7-4.9); Basophils % 0.9 % (0-1.3); Hematocrit 38.5 % (39.6-49.0); MPV 7.9 fL (7.6-11.3); RBC Red Blood Cell Count 4.79 M/uL (4.33-5.43)
[2019-07-26 06:01] LABS: BUN Blood Urea Nitrogen 16 mg/dL (7-18); Bicarbonate 30 mmol/L (21-32); Glucose Level 92 mg/dL (74-106); Magnesium 1.6 mg/dL (1.8-2.4); Potassium 3.8 mmol/L (3.5-5.1); Sodium Level 139 mmol/L (136-145)
[2019-07-26] MEDS ORDERED: MAGNESIUM SULFATE 1 gm IVPB 1 GM/100 ML BAG IV ONE (06:39)
[2019-07-26] MEDS: INSULIN -REGULAR HUMAN 50 UNIT/0.5 ML ML SQ SCH ×4 (07:30→21:00)
[2019-07-26] MEDS: [UNRECOGNIZED DRUG - OTHER] PO SCH ×2 (09:00→21:00)
[2019-07-26] MEDS: SILVER SULFADIAZINE 1% 50 GM TOP SCH ×2 (09:00→22:55)
[2019-07-26] MEDS: METFORMIN HCL 500 MG TAB PO SCH ×2 (09:32→17:12)
[2019-07-26] MEDS: LACTOBACILLUS/ACIDOPHILUS TAB PO SCH ×3 (09:32→21:00)
[2019-07-26] MEDS: ENOXAPARIN 40 MG/0.4 ML SQ SCH (09:32)
[2019-07-26] MEDS: ASPIRIN 81 MG CHEWABLE TABLET PO SCH (09:32)
[2019-07-26] MEDS: FAMOTIDINE 20 MG TAB PO SCH ×2 (09:32→21:00)
[2019-07-26] MEDS: ATORVASTATIN 20 MG TAB PO SCH (09:32)
[2019-07-26] MEDS: MULTIVITAMIN TAB PO SCH (09:32)
[2019-07-26] MEDS: JUVEN PACKET PO SCH ×2 (09:33→21:00)
[2019-07-26] MEDS: CEFEPIME/SWI 1gm 10 ML IV SCH (09:55)
--- NOTE | 2019-07-26 10:02 | P.PN ---
Subjective Date of Service: 07/26/19 (Hospitalist) Primary Care Provider: Dr. Mcbride; ID-Dr. Ryan, [facility]-[place], [place] Chief Complaint: Left heel ulcer, nonhealing Subjective: Improving (No new complaints no pain wound cultures isolated ESBL) Review of Systems Unremarkable Physical Examination - Vital Signs Temperature: 97.3 F Blood Pressure: 140/72 Pulse: 60 Respirations: 18 Pulse Ox (%): 97 - Physical Exam General: Alert, In no apparent distress, Oriented x3 Respiratory: Clear to auscultation bilaterally Cardiovascular: No edema, Normal pulses - Studies Medications List Reviewed: Yes Assessment & Plan - Problems (Diagnosis) (1) Osteomyelitis Current Visit: No Status: Acute Plan: : Patient has no complaints no pain ambulating ESBL isolated Dc cefepime reason start on meropenem continue with vancomycin labs vital signs reviewed waiting transfer to an LTAC Qualifiers: Osteomyelitis type: other acute Osteomyelitis location: foot Laterality: left Qualified Code(s): M86.172 - Other acute osteomyelitis, left ankle and foot Physician Review Additional Text: Impression: Chronic diabetic heel ulcer Diabetes mellitus type 2 insulin-dependent with hyperglycemia Hypertension Diabetic neuropathy Hypothyroidism Plan: Chronic diabetic heel ulcer: Patient sees Infectious Disease as an outpatient. Will consult infectious disease for further recommendation. Will order MRI to rule out osteomyelitis. Will also have surgery evaluate patient. Possible debridement at bedside. If workup unremarkable possible discharge today with wound care and antibiotic therapy. Will discuss with surgery and infectious disease. Diabetes mellitus type 2 insulin-dependent with hyperglycemia: Will need to obtain and restart home medication. Will monitor closely. Will start basal insulin. Will obtain A1c. Patient sees Endocrinology as an outpatient. Hypertension: Restart home medication. Will monitor adjust appropriately. Diabetic neuropathy: Restart home medication. Hypothyroidism: Restart home medication.
--- NOTE | 2019-07-26 12:49 | EKG ---
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
[2019-07-26] MEDS ORDERED: Meropenem 1,000 MG in NA CHLORIDE 0.9% 100 ML IV SCH (17:00)
[2019-07-26] MEDS ORDERED: Meropenem 500 MG VIAL IV SCH (17:00)
[2019-07-26] MEDS: Meropenem 500 MG in NA CHLORIDE 0.9% 100 ML IV SCH (17:12)
[2019-07-26] MEDS: INSULIN GLARGINE 100 UNITS/ML SQ SCH (21:00)
[2019-07-27] MEDS: Meropenem 500 MG in NA CHLORIDE 0.9% 100 ML IV SCH ×3 (00:31→17:14)
[2019-07-27 05:56] LABS: Absolute Lymphocytes (CBC) 1.7 K/uL (0.7-4.9); Hematocrit 39.7 % (39.6-49.0); Lymphocytes % 24.4 % (15.3-44.8); MPV 7.9 fL (7.6-11.3); RBC Red Blood Cell Count 4.96 M/uL (4.33-5.43)
[2019-07-27 06:05] LABS: Magnesium 1.9 mg/dL (1.8-2.4); Potassium 4.3 mmol/L (3.5-5.1)
[2019-07-27] MEDS: INSULIN -REGULAR HUMAN 50 UNIT/0.5 ML ML SQ SCH ×4 (07:30→21:00)
[2019-07-27] MEDS: [UNRECOGNIZED DRUG - OTHER] PO SCH ×2 (09:00→21:00)
[2019-07-27] MEDS: FAMOTIDINE 20 MG TAB PO SCH ×2 (10:23→21:11)
[2019-07-27] MEDS: ATORVASTATIN 20 MG TAB PO SCH (10:23)
[2019-07-27] MEDS: MULTIVITAMIN TAB PO SCH (10:23)
[2019-07-27] MEDS: ENOXAPARIN 40 MG/0.4 ML SQ SCH (10:23)
[2019-07-27] MEDS: ASPIRIN 81 MG CHEWABLE TABLET PO SCH (10:23)
[2019-07-27] MEDS: METFORMIN HCL 500 MG TAB PO SCH ×2 (10:23→17:15)
[2019-07-27] MEDS: LACTOBACILLUS/ACIDOPHILUS TAB PO SCH ×3 (10:23→21:11)
[2019-07-27] MEDS: JUVEN PACKET PO SCH ×2 (10:24→21:00)
[2019-07-27] MEDS: SILVER SULFADIAZINE 1% 50 GM TOP SCH ×2 (10:31→21:00)
[2019-07-27] MEDS ORDERED: VANCOMYCIN 1.75 GM in NA CHLORIDE 0.9% 500 ML IVPB SCH (11:00)
--- NOTE | 2019-07-27 12:08 | P.PN ---
Subjective Date of Service: 07/27/19 Primary Care Provider: Dr. Mcbride; ID-Dr. Ryan, [facility], [place] Chief Complaint: Left heel ulcer, nonhealing Subjective: No new changes This is a 54-year-old male that was admitted for diabetic ulcer of the heel. Was found to have ESBL infection to the wound with acute osteomyelitis. Was started on Meropenem at this time and is awaiting transfer to AC <Benito Cardoso - Last Filed: 07/27/19 12:03> Date of Service: 07/28/19 <Dawit Ramirez - Last Filed: 07/28/19 14:11> Review of Systems General: Unremarkable Eyes: Unremarkable ENT: Unremarkable Respiratory: Unremarkable Cardiovascular: Unremarkable Gastrointestinal: Unremarkable Musculoskeletal: Unremarkable Integumentary: Other (diabetic foot ulcer) Neurological: Unremarkable Lymphatics: Unremarkable <Benito Cardoso - Last Filed: 07/27/19 12:03> Physical Examination - Vital Signs Temperature: 98.4 F Blood Pressure: 142/69 Pulse: 75 Respirations: 17 Pulse Ox (%): 97 - Physical Exam General: Alert, Oriented x3 HEENT: Normocephalic, PERRLA, Mucous membr. moist/pink Neck: Supple, 2+ carotid pulse no bruit Respiratory: Clear to auscultation bilaterally, Normal air movement Cardiovascular: No edema, Normal pulses, Regular rate/rhythm, Normal S1 S2, No gallops, No rubs, No murmurs Capillary refill: <2 Seconds Gastrointestinal: Normal bowel sounds, Soft and benign, Non-distended, No ascites, No tenderness, No masses, No rebound, No guarding Musculoskeletal: No clubbing, No swelling, No contractures, No erythema, No tenderness, No warmth Integumentary: Diabetic ulcer (No erythema or large amount of discharge present. 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 Diabetes mellitus complication status: with skin complications Diabetes mellitus complication detail: with foot ulcer Qualified Code(s): E11.621 - Type 2 diabetes mellitus with foot ulcer; L97.509 - Non-pressure chronic ulcer of other part of unspecified foot with unspecified severity; 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 (2) Diabetic foot ulcer Status: Acute Qualifiers: Diabetic foot ulcer location: toe Diabetes mellitus type: type 2 Laterality: left Non-pressure ulcer stage: with bone involvement without evidence of necrosis Qualified Code(s): E11.621 - Type 2 diabetes mellitus with foot ulcer; L97.526 - Non-pressure chronic ulcer of other part of left foot with bone involvement without evidence of necrosis (3) Hyperlipidemia Status: Acute Qualifiers: Hyperlipidemia type: unspecified Qualified Code(s): E78.5 - Hyperlipidemia , unspecified (4) Osteomyelitis Status: Acute Qualifiers: Osteomyelitis type: other acute Osteomyelitis location: foot Laterality: left Qualified Code(s): M86.172 - Other acute osteomyelitis, left ankle and foot - Plan Patient will remain on Abx therapy. VS and labs will be monitored. Social service consulted and awaiting LTAC placement for ESBL wound and dressing changes. Discharge Plan: LTAC Plan to discharge in: 48 Hours Physician Review Additional Text: Impression: Chronic diabetic heel ulcer Diabetes mellitus type 2 insulin-dependent with hyperglycemia Hypertension Diabetic neuropathy Hypothyroidism Plan: Chronic diabetic heel ulcer: Patient sees Infectious Disease as an outpatient. Will consult infectious disease for further recommendation. Will order MRI to rule out osteomyelitis. Will also have surgery evaluate patient. Possible debridement at bedside. If workup unremarkable possible discharge today with wound care and antibiotic therapy. Will discuss with surgery and infectious disease. Diabetes mellitus type 2 insulin-dependent with hyperglycemia: Will need to obtain and restart home medication. Will monitor closely. Will start basal insulin. Will obtain A1c. Patient sees Endocrinology as an outpatient. Hypertension: Restart home medication. Will monitor adjust appropriately. Diabetic neuropathy: Restart home medication. Hypothyroidism: Restart home medication. Critical Care: No Time Spent Managing PTS Care (In Minutes): 35 <Benito Cardoso - Last Filed: 07/27/19 12:03> Physician Review: Patient Assessed, Agree with Above Assessment and Plan Physician Review Additional Text: Case discussed w PA, chart reviewed. Agree with above assessment and plan <Dawit Ramirez - Last Filed: 07/28/19 14:11>
--- NOTE | 2019-07-27 13:09 | RAD REPORT ---
EXAM DESCRIPTION: RAD - Chest Single View - 07/25/2019 12:29 am CLINICAL HISTORY: S/P PICC insertion COMPARISON: 08/05/2018. TECHNIQUE: XR CHEST 1 VIEW 07/24/2019 11:54 PM HEEL PRICKER FINDINGS: Cardiac silhouette is normal in size. Lungs are clear without consolidation, atelectasis, mass or edema. There is no pleural effusion. There is no pneumothorax. There are no acute osseous fin dings. Left PICC line tip is in the mid SVC. IMPRESSION: Appropriate position of left PICC line. Electronically signed by: Miguel Angel Pinto MD 07/25/2019 12:40 AM HEEL PRICKER Due to temporary technical issues with the PACS/Fluency reporting system, reports are being signed by the in house radiologist as a courtesy to ensure prompt reporting. The interpreting radiologist is f ully responsible for the content of the report.
[2019-07-27 18:04] VITALS: TEMP 98
[2019-07-27] MEDS: INSULIN GLARGINE 100 UNITS/ML SQ SCH (21:00)
[2019-07-27 22:51] VITALS: BP 142/66; O2SAT 96
--- NOTE | 2019-08-03 05:08 | P.DS ---
Discharge Date: 07/27/19 Primary Care Provider: Dr. Mcbride; ID-Dr. Ryan, [facility], [place] Disposition: [facility] Discharge Condition: FAIR Reason for Admission: Left heel ulcer, nonhealing Consultations: INFECTIOUS DISEASE PULMONARY Brief History of Present Illness: Zeke Mackay is a 54 year-old with history of hypertension, diabetes mellitus with neuropathy, recurrent nonhealing ulcer over the left heel, status post previous osteomyelitis for which he received prolonged antibiotics at the [facility] 3 months ago. He has been following with Dr. Ryan as outpatient. He was last seen there 1 month ago and was told the wound was healing, but patient noticed new drainage from the ulcer and has presented to the ED. He denies any fever or chills. The patient has history of recurrent back as well as left hallux osteomyelitis in the past. He admit to control of his glucose better now too. Hospital Course: PATIENT HAS DONE WELL DURING HIS HOSPITAL STAY. HE HAS BEEN ON ANTIBIOTIC THERAPY. CLINICALLY DOING WELL. MRI REVEALED OSTEOMYELITIS OF THE CALCANEUS. PATIENT WILL BE TRANSFERRED TO LONG-TERM ACUTE [facility]. Vital Signs/Physical Exam: Temp Pulse Resp BP Pulse Ox 98.0 F 68 16 142/66 H 96 07/27/19 20:00 07/27/19 20:00 07/27/19 20:00 07/27/19 20:00 07/27/19 20:00 General: Alert, In no apparent distress, Oriented x3 Laboratory Data at Discharge: WBC 6.8 K/uL (4.3-10.9) D 07/27/19 05:35 Hgb 12.9 g/dL (13.6-17.9) L 07/27/19 05:35 Hct 39.7 % (39.6-49.0) 07/27/19 05:35 Plt Count 270 K/uL (152-406) 07/27/19 05:35 PT 11.7 SECONDS (9.5-12.5) 07/23/19 22:00 INR 0.99 07/23/19 22:00 APTT 34.5 SECONDS (24.3-36.9) 07/23/19 22:00 Sodium 139 mmol/L (136-145) 07/27/19 05:35 Potassium 4.3 mmol/L (3.5-5.1) 07/27/19 05:35 BUN 19 mg/dL (7-18) H 07/27/19 05:35 Creatinine 1.00 mg/dL (0.55-1.3) 07/27/19 05:35 Glucose 131 mg/dL (74-106) H 07/27/19 05:35 Magnesium 1.9 mg/dL (1.8-2.4) 07/27/19 05:35 Total Bilirubin 0.5 mg/dL (0.2-1.0) 07/24/19 05:22 AST 22 U/L (15-37) 07/24/19 05:22 ALT 30 U/L (12-78) 07/24/19 05:22 Alkaline Phosphatase 62 U/L (45-117) 07/24/19 05:22 Amylase 49 U/L (25-115) 07/23/19 22:00 Lipase 111 U/L (73-393) 07/23/19 22:00 Home Medications: Metformin HCl 1,000 mg PO BID 08/04/18 Aspirin 81 mg PO DAILY 07/24/19 Atorvastatin Calcium [Lipitor] 20 mg PO DAILY 07/24/19 Calcium Bone Maker Complex 3 tab PO BID 07/24/19 Dapagliflozin Propanediol [Farxiga] 10 mg PO DAILY 07/24/19 Insulin Glargine/Lixisenatide [Soliqua 100 Unit-33 Mcg/ml Pen] 18 units SQ DAILY 07/24/19 L.acidoph,Paracasei, B.lactis [Probiotic] 1 each PO DAILY 07/24/19 Multivitamin [Multiple Vitamins] 1 each PO DAILY 07/24/19 Meropenem [Merrem] 500 mg IV Q8H 42 Days vial 07/27/19 Vancomycin/0.9 % Sod Chloride [Vanco 1.75 gm/500 ml-0.9% NaCl] 1.75 gm IV Q18H # 42 plast..bag 07/27/19 New Medications: Meropenem [Merrem] 500 mg IV Q8H 42 Days vial Vancomycin/0.9 % Sod Chloride [Vanco 1.75 gm/500 ml-0.9% NaCl] 1.75 gm IV Q18H # 42 plast..bag Patient Discharge Instructions: TRANSFER TO LONG-TERM ACUTE [facility] Diet: ADA Activity: Fall precautions Time spent managing pt's care (in minutes): 20
== END 2019-07-27 22:29 | DRG 638 ==
LOC: ER 21:02 → 2ND 07-24 00:28 → 4TH 07-24 20:37
PROVIDERS: ADMIT Internal Medicine; ATTEND Internal Medicine
PROC: 02HV33Z Insertion of Infusion Device into Superior Vena Cava, Percutaneous Approach (ICD-10-PCS; principal; 2019-07-24)
DX: E11.69 Type 2 diabetes mellitus with other specified complication (principal); M86.172 Other acute osteomyelitis, left ankle and foot; L97.526 Non-pressure chronic ulcer of other part of left foot with bone involvement without evidence of necrosis; E11.65 Type 2 diabetes mellitus with hyperglycemia; E11.621 Type 2 diabetes mellitus with foot ulcer; E78.5 Hyperlipidemia, unspecified; I10 Essential (primary) hypertension; E11.40 Type 2 diabetes mellitus with diabetic neuropathy, unspecified; E03.9 Hypothyroidism, unspecified
CPT/HCPCS: 36415; 36569; 71045; 80048; 80053; 80076; 80202; 81003; 82150; 82947; 83036; 83605; 83690; 83735; 84145; 85025; 85610; 85730; 87040; 87070; 87077; 87186; 87205; 93005; 96365; 96366; 96368; 99285; J0692; J1650; J1815; J2543; J3475; J7030; J7040

== ENCOUNTER 2020-08-17 15:50 | Inpatient (IN) | payer BC ==
--- OUTSIDE RECORDS SUMMARY | 2020-08-17 20:25 | XMS REPORT | Continuity of Care Document ---
:1965 Author Organization [facility] t Address [address] [place] [address] Care Team Providers Name Role Phone Provider Primary Care Physician Unavailable Jem Darling DO Attending Clinician Doctor Unassigned, Name Attending Clinician Unavailable Nasreen MCCALLUM Attending Clinician Clare MCCALLUM, Fauzia Attending Clinician [phone] Payers Payer Name Policy Type Policy Number Effective Date Expiration Date S ource [id number] 2014 [place] CHOICE 00:00:00 [employer] P[employer]ER[employer] EMPL [id number] entPPO Problems This patient has no known problems. Allergies, Adverse Reactions, Alerts This patient has no known allergies or adverse reactions. Family History Family Member Diagnosis Comments Start Date Stop Date Source Natural mother Stroke [facility] Social History Social Habit Start Date Stop Date Quantity Comments Source Tobacco use and 2017-05-02 2017-05-02 Never used [facility] ethodist exposure 00:00:00 00:00:00 Alcohol intake 2017-05-02 2017-05-02 Current drinker [place] [employer] 00:00:00 00:00:00 of alcohol (finding) Sex [birth year] [facility]ist 00:00:00 00:00:00 Smoking Status Start Date Stop Date Source Never smoker [place] [facility] t Medications Ordered Filled Start Stop Current Ordering Indication Dosage Frequency Signature Comments Components Source Medication Medication Date Date Medication? Clinician (SIG) Name Name insulin NPH 2016-05 Yes Inject [place] and regular 0-03 under the Met hodi human 15:39: skin. st (HumuLIN 42 70/30) 100 unit/mL (70-30) injection metFORMIN 2016-05 Yes 500mg Q.5D Take [address] (GLUCOPHAGE 0-03 mg by Methodi ) 500 mg 15:39: mouth 2 st tablet 42 (two) times a day with meals. Procedures This patient has no known procedures. Plan of Care Planned Activity Planned Date Details Comments Source Future Scheduled 2019-12-19 INFLUENZA VACCINE [place] [facility] Test 00:00:00 [code = INFLUENZA VACCINE] Future Scheduled 2014-01-09 COLONOSCOPY SCREENING [place] [facility] Test 00:00:00 [code = COLONOSCOPY SCREENING] Future Scheduled 2014-01-09 SHINGLES VACCINES [place] [facility] Test 00:00:00 (#1) [code = SHINGLES VACCINES (#1)] Future Scheduled 1980 COVID-19 VACCINE (1) [place] [facility] Test 00:00:00 [code = COVID-19 VACCINE (1)] Encounters Start End Encounter Admission Attending Care Care Encounter Source Date/Time Date/Time Type Type Clinicians Facility Department ID 2020-07-30 2020-07-30 Patient VIRGINIA Darling [id number] 00:00:00 00:00:00 Outreach Emil [facility] [id number] [facility] [id number] [place] [id number] 2020-04-07 2020-04-07 Orders Doctor ROB [id number] 00:00:00 00:00:00 Only Unassigned, BHANU [id number] Nora [facility] [id number] 2020-03-24 2020-03-24 Office VRIGINIA Downey [id number] 13:31:05 13:59:57 Visit Jakub Mariscal [id number] [place] [id number] Rona [id number] [address] 2020-03-24 2020-03-24 Patient VIRGINIA Downey [id number] 00:00:00 00:00:00 [facility] [place] [id number] Cancer [id number] [facility] [id number] [facility] 204 Results This patient has no known results.
[2020-08-17 20:59] VITALS: BMI 26.5
[2020-08-17] MEDS ORDERED: VANCOMYCIN/NS 1 gm 1 GM/250 ML BAG IVPB SCH (21:19)
[2020-08-17] MEDS: INSULIN -REGULAR HUMAN 50 UNIT/0.5 ML ML SQ SCH (21:19)
[2020-08-17] MEDS ORDERED: ONDANSETRON 4 MG/2 ML VIAL IV PRN (21:19)
[2020-08-17] MEDS ORDERED: VANCOMYCIN 1 GM/VIAL ONE (22:03)
--- NOTE | 2020-08-17 22:07 | P.HP ---
Certification for Inpatient Patient admitted to: Inpatient With expected LOS: >2 Midnights Patient will require the following post-hospital care: None Practitioner: I am a practitioner with admitting privileges, knowledge of patient current condition, hospital course, and medical plan of care. Services: Services provided to patient in accordance with Admission requirements found in Title 42 Section 412.3 of the Code of Federal Regulations <You Carson - Last Filed: 08/17/20 22:03> Patient History Date of Service: 08/17/20 Primary Care Provider: Dr. marrero Reason for admission: Osteomyelitis History of Present Illness: 55-year-old male with history of diabetes mellitus type 2, hyperlip idemia presents emergency department for confirmed osteomyelitis of the left foot. Patient sees infectious disease doctor on an outpatient basis and had x- ray which confirmed osteomyelitis, patient was directly admitted for further evaluation and management. Patient reports for previous episodes of osteomyelitis on the left foot, has not had previous amputations. Patient reports he typically requires 6 weeks of IV antibiotics and hyperbaric treatments. Will admit for further evaluation and management. - Past Medical/Surgical History Has patient received pneumonia vaccine in the past: No Diabetic: Yes -: Neuropathy -: Diabetes -: Hyperlipidemia -: lap appy -: L wrist fx repair -: R hand fx repair -: c3-6 fused Psychosocial/ Personal History: Patient is retired, lives with his and children - Family History Father -: Diabetes, Other (see notes) Notes: Stroke - Social History Smoking Status: Never smoker Alcohol use: No CD- Drugs: No Caffeine use: Yes Place of Residence: Home <YamilethYou - Last Filed: 08/17/20 22:03> Date of Service: 08/18/20 <Eliceo nEgland - Last Filed: 08/18/20 18:02> Allergies No Known Allergies Allergy (Verified 08/17/20 20:54) Home Medications: Metformin HCl 1,000 mg PO BID 08/04/18 Atorvastatin Calcium [Lipitor] 20 mg PO DAILY 07/24/19 Dapagliflozin Propanediol [Farxiga] 10 mg PO DAILY 07/24/19 Insulin Glargine/Lixisenatide [Soliqua 100 Unit-33 Mcg/ml Pen] 18 units SQ DAILY 07/24/19 L.acidoph,Paracasei, B.lactis [Probiotic] 1 each PO DAILY 07/24/19 Review of Systems 10-point ROS is otherwise unremarkable Musculoskeletal: Foot Pain Integumentary: As per HPI <You Carson - Last Filed: 08/17/20 22:03> Physical Examination - Vital Signs Temperature: 98.1 F Blood Pressure: 193/87 Pulse: 85 Respirations: 16 - Physical Exam General: Alert, In no apparent distress HEENT: Atraumatic, PERRLA, Mucous membr. moist/pink, EOMI, Sclerae nonicteric Neck: Supple, 2+ carotid pulse no bruit, No LAD, Without JVD or thyroid abnormality Respiratory: Clear to auscultation bilaterally, Normal air movement Cardiovascular: Regular rate/rhythm, Normal S1 S2 Gastrointestinal: Normal bowel sounds, No tenderness Musculoskeletal: No tenderness Integumentary: No rashes, Diabetic ulcer (Plantar aspect of left foot at the base of the great toe) Neurological: Normal speech, Normal strength at 5/5 x4 extr, Normal tone, Normal affect <You Carson - Last Filed: 08/17/20 22:03> - Studies Laboratory Data (last 24 hrs) 08/18/20 04:05: Sodium 140, Potassium 3.7, BUN 15, Creatinine 0.83, Glucose 125 H, Magnesium 1.9, Total Bilirubin 0.4, AST 13 L, ALT 19, Alkaline Phosphatase 73 08/18/20 04:05: WBC 8.60, Hgb 12.1 L, Hct 36.2 L, Plt Count 370 08/17/20 22:02: Sodium 139, Potassium 3.7, BUN 18, Creatinine 1.05, Glucose 223 H, Magnesium 1.8, Total Bilirubin 0.3, AST 14 L, ALT 20, Alkaline Phosphatase 79 08/17/20 22:02: WBC 8.80, Hgb 12.1 L, Hct 36.8 L, Plt Count 386 <Eliceo England - Last Filed: 08/18/20 18:02> Assessment and Plan - Plan Assessment Osteomyelitis of the 1st metatarsal of the left foot Diabetes mellitus type 2 with hyperglycemia Hyperlipidemia Plan Osteomyelitis of the 1st metatarsal of the left foot: Infectious disease consulted, wound healing Center consulted. Continue with vancomycin, meropenem at this time. Patient will require long-term IV antibiotics, PICC line ordered, plan is for transfer to LTAC for further evaluation and management of the osteomyelitis. P.r.n. pain medications, DVT prophylaxis Lovenox 40 mg subcutaneous once daily. Diabetes mellitus type 2 with hyperglycemia: Continue home medications in addition to a.c HS. Accu-Chek, sliding scale insulin therapy. Hyperlipidemia: Continue home meds. Discharge Plan: LTAC Plan to discharge in: Greater than 2 days - Advance Directives Does patient have a Living Will: No Does patient have a Durable POA for Healthcare: No - Code Status/Comfort Care Code Status Assessed: Yes (Full code) Critical Care: No Time Spent Managing Pts Care (In Minutes): 55 <You Carson - Last Filed: 08/17/20 22:03> - Plan Plan of care reviewed as noted above by You Carson Osteomyelitis of the 1st metatarsal left foot Continue vancomycin and meropenem Infectious disease consulted Will likely need LTAC <Eliceo England - Last Filed: 08/18/20 18:02>
[2020-08-17] MEDS ORDERED: VANCOMYCIN 500 MG/VIAL ONE (22:25)
[2020-08-17 22:44] LABS: Absolute Lymphocytes (CBC) 1.7 K/uL (0.7-4.9); Basophils % 0.9 % (0-1.3); Hematocrit 36.8 % (39.6-49.0); Lymphocytes % 19.9 % (15.3-44.8); MPV 8.1 fL (7.6-11.3); RBC Red Blood Cell Count 4.66 M/uL (4.33-5.43)
[2020-08-17] MEDS ORDERED: NA CHLORIDE 0.9% 250 ML IV SCH (23:00)
[2020-08-17] MEDS ORDERED: VANCOMYCIN 1.5 GM in NA CHLORIDE 0.9% 500 ML IVPB ONE (23:00)
[2020-08-17] MEDS ORDERED: VANCOMYCIN 500 MG in NA CHLORIDE 0.9% 100 ML IVPB ONE (23:00)
[2020-08-17 23:05] LABS: Albumin 3.4 g/dL (3.4-5.0); Bilirubin Total 0.3 mg/dL (0.2-1.0); Magnesium 1.8 mg/dL (1.8-2.4); Potassium 3.7 mmol/L (3.5-5.1); Protein, Total 7.6 g/dL (6.4-8.2)
[2020-08-17] MEDS ORDERED: NA CHLORIDE 0.9% 500 ML IV SCH (23:45)
[2020-08-18] MEDS ORDERED: Meropenem 1 GM/100 ML BAG IV SCH (01:00)
[2020-08-18] MEDS ORDERED: Meropenem 1000 MG/VIAL IV SCH (01:00)
[2020-08-18] MEDS ORDERED: Meropenem 1 GM/100 ML BAG ONE (01:35)
[2020-08-18 04:35] LABS: Absolute Lymphocytes (CBC) 2.3 K/uL (0.7-4.9); Basophils % 1.1 % (0-1.3); Hematocrit 36.2 % (39.6-49.0); Lymphocytes % 26.2 % (15.3-44.8); MPV 7.8 fL (7.6-11.3); RBC Red Blood Cell Count 4.63 M/uL (4.33-5.43)
[2020-08-18 04:52] LABS: ALT/SGPT 19 U/L (12-78); AST/SGOT 13 U/L (15-37); Albumin 3.2 g/dL (3.4-5.0); Alkaline Phosphatase 73 U/L (45-117); BUN Blood Urea Nitrogen 15 mg/dL (7-18); Bicarbonate 28 mmol/L (21-32); Bilirubin Total 0.4 mg/dL (0.2-1.0); Glucose Level 125 mg/dL (74-106); Potassium 3.7 mmol/L (3.5-5.1); Protein, Total 7.4 g/dL (6.4-8.2); Sodium Level 140 mmol/L (136-145)
[2020-08-18 05:11] LABS: Magnesium 1.9 mg/dL (1.8-2.4)
[2020-08-18] MEDS: INSULIN -REGULAR HUMAN 50 UNIT/0.5 ML ML SQ SCH ×4 (07:30→20:42)
[2020-08-18] MEDS: METFORMIN HCL 500 MG TAB PO SCH ×2 (08:50→17:53)
[2020-08-18] MEDS: ATORVASTATIN 20 MG TAB PO SCH (08:51)
[2020-08-18] MEDS: LACTOBACILLUS/ACIDOPHILUS TAB PO SCH (08:51)
[2020-08-18] MEDS: ENOXAPARIN 40 MG/0.4 ML SQ SCH (08:51)
[2020-08-18] MEDS ORDERED: ACIDOPH PARACASEI B LACTIS PO SCH (09:00)
[2020-08-18] MEDS ORDERED: POTASSIUM CL SA 10 MEQ TAB PO ONE (09:00)
[2020-08-18] MEDS: VANCOMYCIN 1.75 GM in NA CHLORIDE 0.9% 500 ML IVPB SCH ×2 (09:46→20:44)
[2020-08-18] MEDS: Meropenem 1,000 MG in NA CHLORIDE 0.9% 100 ML IV SCH ×2 (09:46→17:53)
[2020-08-18] MEDS ORDERED: NA CHLORIDE 0.9% 50 ML ONE (09:52)
--- NOTE | 2020-08-18 11:09 | P.CNS ---
Date of Consult: 08/18/20 Primary Care Provider: Dr. marrero Chief Complaint: Osteomyelitis History of Present Illness: The patient is a 55-year-old male with a past medical history of diabetes type 2 uncontrolled, hyperlipidemia, and history of recurrent osteomyelitis who presents to the emergency department with confirmed osteomyelitis of the left foot confirmed via x-rays. Patient states that he has had previous episodes of osteomyelitis to the left foot with no amputations. Previous osteomyelitis has been treated with hyperbaric oxygen treatments and IV antibiotics. Wound care infectious disease has been consulted to monitor the patient's wound and osteomyelitis. Pending blood cultures and wound cultures. Hindu currently on IV vancomycin and meropenem. Continue these antibiotics for 6 weeks, awaiting procal CRP. Patient denies pain to the area however he does have bilateral peripheral neuropathy due to his uncontrolled diabetes. Patient denies shortness breath, nausea, vomiting, and diarrhea, chest pain. Allergies No Known Allergies Allergy (Verified 08/17/20 20:54) Home Medications: Metformin HCl 1,000 mg PO BID 08/04/18 Atorvastatin Calcium [Lipitor] 20 mg PO DAILY 07/24/19 Dapagliflozin Propanediol [Farxiga] 10 mg PO DAILY 07/24/19 Insulin Glargine/Lixisenatide [Soliqua 100 Unit-33 Mcg/ml Pen] 18 units SQ DAILY 07/24/19 L.acidoph,Paracasei, B.lactis [Probiotic] 1 each PO DAILY 07/24/19 - Past Medical/Surgical History Diabetic: Yes -: Neuropathy -: Diabetes -: Hyperlipidemia -: lap appy -: L wrist fx repair -: R hand fx repair -: c3-6 fused Psychosocial/ Personal History: Patient is retired, lives with his and children - Family History Father Medical History: Diabetes, Other (see notes) Notes: Stroke - Social History Smoking Status: Unknown if ever smoked Alcohol use: No CD- Drugs: No Caffeine use: Yes Place of Residence: Home Review of Systems 10-point ROS is otherwise unremarkable Physical Examination Temp Pulse Resp BP Pulse Ox 98.6 F 67 16 153/74 H 95 08/18/20 08:00 08/18/20 08:00 08/18/20 08:00 08/18/20 08:00 08/18/20 08:00 General: Alert, In no apparent distress, Oriented x3 HEENT: Atraumatic, Normocephalic Neck: Supple, 2+ carotid pulse no bruit, JVD not distended Respiratory: Clear to auscultation bilaterally, Normal air movement Cardiovascular: No edema, Normal pulses, Regular rate/rhythm Capillary refill: <2 Seconds Gastrointestinal: Normal bowel sounds Musculoskeletal: No clubbing, No swelling, No contractures Integumentary: Diabetic ulcer (to left plantar aspect of foot) Neurological: Normal gait, Normal speech Lymphatics: No axilla or inguinal lymphadenopathy Laboratory Data (last 24 hrs) 08/18/20 04:05: Sodium 140, Potassium 3.7, BUN 15, Creatinine 0.83, Glucose 125 H, Magnesium 1.9, Total Bilirubin 0.4, AST 13 L, ALT 19, Alkaline Phosphatase 73 08/18/20 04:05: WBC 8.60, Hgb 12.1 L, Hct 36.2 L, Plt Count 370 08/17/20 22:02: Sodium 139, Potassium 3.7, BUN 18, Creatinine 1.05, Glucose 223 H, Magnesium 1.8, Total Bilirubin 0.3, AST 14 L, ALT 20, Alkaline Phosphatase 79 08/17/20 22:02: WBC 8.80, Hgb 12.1 L, Hct 36.8 L, Plt Count 386 Conclusions/Impression: Antibiotics: vancomycin start: 08/18 stop: 09/29 Indication: Osteomyelitis merum start; 08/18 stop: 09/29 Indication: Osteomyelitis Assessment: -osteomyelitis of left foot -diabetes type 2 uncontrolled -normocytic anemia Plan: -Continue IV antibiotic treatment for 6 weeks-recommend placement to LTAC with hyperbaric oxygen treatment to treat patient's osteomyelitis. Patient has had recurrent osteomyelitis of the past few years and would greatly benefit from hyperbaric oxygen treatments as well as intensive wound care. Patient like to avoid amputation and as such treat in an LTAC with hyperbaric oxygen treatment is the best placement for the patient. -awaiting: blood cultures, wound culture, inflammatory markers (CRP and procalcitonin), and hemoglobin A1c. Patient reports that his diabetes is uncontrolled knee and states he does not remember his last hemoglobin A1c. On admission the patient's glucose was 223. -medical management per primary team -continue monitor CBC and BMP -continue monitor for signs of infection Plan of care discussed with Dr. Ryan Thank you for consultation
--- NOTE | 2020-08-18 12:09 | P.PN ---
Subjective Date of Service: 08/18/20 Primary Care Provider: Dr. marrero Chief Complaint: Osteomyelitis Subjective: No new changes (No acute events overnight, patient without any new complaints. Denies pain, has significantly diminished/no sensation in bilateral feet.) Review of Systems 10-point ROS is otherwise unremarkable Physical Examination - Vital Signs Temperature: 98.6 F Blood Pressure: 153/74 Pulse: 67 Respirations: 16 Pulse Ox (%): 95 - Studies Laboratory Data (last 24 hrs) 08/18/20 04:05: Sodium 140, Potassium 3.7, BUN 15, Creatinine 0.83, Glucose 125 H, Magnesium 1.9, Total Bilirubin 0.4, AST 13 L, ALT 19, Alkaline Phosphatase 73 08/18/20 04:05: WBC 8.60, Hgb 12.1 L, Hct 36.2 L, Plt Count 370 08/17/20 22:02: Sodium 139, Potassium 3.7, BUN 18, Creatinine 1.05, Glucose 223 H, Magnesium 1.8, Total Bilirubin 0.3, AST 14 L, ALT 20, Alkaline Phosphatase 79 08/17/20 22:02: WBC 8.80, Hgb 12.1 L, Hct 36.8 L, Plt Count 386 Assessment & Plan Physician Review Additional Text: Physical Exam General: Alert, In no apparent distress HEENT: Normal conjunctiva, sclerae anicteric Respiratory: Clear to auscultation bilaterally, Normal air movement Cardiovascular: Regular rate/rhythm, Normal S1 S2 Abdomen: Soft, nontender, nondistended Ext: no edema Skin: Plantar diabetic ulcer at base/over metatarsal head of 1st toe Assessment and Plan Osteomyelitis of the 1st metatarsal of the left foot Diabetes mellitus type 2 with hyperglycemia Hyperlipidemia -this is at least 4th time patient has had osteomyelitis, this is a different site than previously -has required prolonged IV antibiotics as well -infectious disease consulted, continue IV vancomycin and meropenem -Medihoney and alginate to the ulcer -PICC line ordered, patient will need long-term antibiotics -recent foot x-ray with findings of osteomyelitis done as an outpatient -given his recurrent/new site of osteomyelitis, patient would benefit from LTAC placement for IV antibiotics, likely benefit from hyperbaric treatment, possible vascular workup/intervention -DM2, HLD - stable, continue home medications Code: full Dispo: SW/CM consulted for LTAC Time Spent Managing Pts Care (In Minutes): 35
--- NOTE | 2020-08-18 12:26 | RAD REPORT ---
EXAM DESCRIPTION: RAD - Chest Single View - 08/18/2020 12:21 pm CLINICAL HISTORY: Device placement PICC line placement IMPRESSION: PICC line with its tip 1 centimeter in the right atrium
[2020-08-18] MEDS: MEDIHONEY 44 ML TOPICAL TUBE TOP SCH (13:10)
[2020-08-18 14:34] LABS: Urine Appearance CLEAR (Clear); Urine Bilirubin NEGATIVE (Negative); Urine Blood NEGATIVE (Negative); Urine Color YELLOW (Yellow); Urine Glucose 3+ (Negative); Urine Protein NEGATIVE (Negative); Urine Specific Gravity >=1.030 (1.005-1.030); Urine Urobilinogen 0.2 mg/dL (0.2-1.0)
[2020-08-18 14:35] LABS: Urine Microscopic Reflex NO UMIC
--- NOTE | 2020-08-18 14:35 | RAD REPORT ---
EXAM DESCRIPTION: RAD - Chest Single View - 08/18/2020 2:23 pm CLINICAL HISTORY: PICC line placement COMPARISON: None. August 18 FINDINGS: Portable chest was obtained following placement or repositioning of a left upper extremity PICC line. The catheter tip is now in the mid SVC.
[2020-08-19] MEDS: Meropenem 1,000 MG in NA CHLORIDE 0.9% 100 ML IV SCH ×3 (00:48→16:50)
[2020-08-19 06:27] LABS: Absolute Lymphocytes (CBC) 1.6 K/uL (0.7-4.9); Basophils % 1.1 % (0-1.3); Hematocrit 37.4 % (39.6-49.0); Lymphocytes % 20.9 % (15.3-44.8); MPV 7.4 fL (7.6-11.3); RBC Red Blood Cell Count 4.76 M/uL (4.33-5.43)
[2020-08-19 06:58] LABS: ALT/SGPT 19 U/L (12-78); AST/SGOT 14 U/L (15-37); Albumin 2.9 g/dL (3.4-5.0); Alkaline Phosphatase 76 U/L (45-117); BUN Blood Urea Nitrogen 14 mg/dL (7-18); Bicarbonate 27 mmol/L (21-32); Bilirubin Total 0.4 mg/dL (0.2-1.0); Glucose Level 113 mg/dL (74-106); Potassium 3.8 mmol/L (3.5-5.1); Protein, Total 7.3 g/dL (6.4-8.2); Sodium Level 139 mmol/L (136-145)
[2020-08-19] MEDS: INSULIN -REGULAR HUMAN 50 UNIT/0.5 ML ML SQ SCH ×4 (07:30→20:22)
[2020-08-19] MEDS: METFORMIN HCL 500 MG TAB PO SCH ×2 (08:13→16:50)
[2020-08-19] MEDS: LACTOBACILLUS/ACIDOPHILUS TAB PO SCH (08:13)
[2020-08-19] MEDS: ATORVASTATIN 20 MG TAB PO SCH (08:13)
[2020-08-19] MEDS: ENOXAPARIN 40 MG/0.4 ML SQ SCH (08:14)
[2020-08-19] MEDS ORDERED: POTASSIUM CL SA 10 MEQ TAB PO ONE (09:00)
[2020-08-19] MEDS ORDERED: POLYETHYL GLY 3350 17 GM/DOSE PO PRN (09:32)
[2020-08-19] MEDS: VANCOMYCIN 1.75 GM in NA CHLORIDE 0.9% 500 ML IVPB SCH ×2 (09:37→20:20)
--- NOTE | 2020-08-19 10:36 | P.PN ---
Subjective Date of Service: 08/19/20 Primary Care Provider: Dr. marrero Chief Complaint: Osteomyelitis Patient seen exam that side, no acute complaints states he is feeling wound on antibiotic abdominal nausea, vomiting, diarrhea. Awaiting for the at [facility]. Awaiting blood cultures and wound cultures. Physical Examination - Vital Signs Temperature: 98.1 F Blood Pressure: 125/68 Pulse: 68 Respirations: 16 Pulse Ox (%): 97 - Studies Laboratory Data (last 24 hrs) 08/19/20 06:15: Sodium 139, Potassium 3.8, BUN 14, Creatinine 0.70, Glucose 113 H, Total Bilirubin 0.4, AST 14 L, ALT 19, Alkaline Phosphatase 76 08/19/20 06:15: WBC 7.70, Hgb 12.5 L, Hct 37.4 L, Plt Count 370 Assessment And Plan - Plan General: Alert, In no apparent distress, Oriented x3 HEENT: Atraumatic, Normocephalic Neck: Supple, 2+ carotid pulse no bruit, JVD not distended Respiratory: Clear to auscultation bilaterally, Normal air movement Cardiovascular: No edema, Normal pulses, Regular rate/rhythm Capillary refill: <2 Seconds Gastrointestinal: Normal bowel sounds Musculoskeletal: No clubbing, No swelling, No contractures Integumentary: Diabetic ulcer (to left plantar aspect of foot) Neurological: Normal gait, Normal speech Lymphatics: No axilla or inguinal lymphadenopathy Conclusions/Impression: Antibiotics: vancomycin start: 08/18 stop: 09/29 Indication: Osteomyelitis merum start; 08/18 stop: 09/29 Indication: Osteomyelitis Assessment: -osteomyelitis of left foot -diabetes type 2 uncontrolled -normocytic anemia Plan: -Continue IV antibiotic treatment for 6 weeks-recommend placement to LTAC with hyperbaric oxygen treatment to treat patient's osteomyelitis. Patient has had recurrent osteomyelitis of the past few years and would greatly benefit from hyperbaric oxygen treatments as well as intensive wound care. Patient like to avoid amputation and as such treat in an LTAC with hyperbaric oxygen treatment is the best placement for the patient. -awaiting: blood cultures, wound culture - inflammatory markers: CRP elevated at 464. Procalcitonin within normal limits. - hemoglobin A1c 12.0. Strict glucose monitoring needed for proper wound healing. -medical management per primary team -continue monitor CBC and BMP -continue monitor for signs of infection Plan of care discussed with Dr. Ryan Thank you for consultation Physician Review Additional Text: Physical Exam General: Alert, In no apparent distress HEENT: Normal conjunctiva, sclerae anicteric Respiratory: Clear to auscultation bilaterally, Normal air movement Cardiovascular: Regular rate/rhythm, Normal S1 S2 Abdomen: Soft, nontender, nondistended Ext: no edema Skin: Plantar diabetic ulcer at base/over metatarsal head of 1st toe Assessment and Plan Osteomyelitis of the 1st metatarsal of the left foot Diabetes mellitus type 2 with hyperglycemia Hyperlipidemia -this is at least 4th time patient has had osteomyelitis, this is a different site than previously -has required prolonged IV antibiotics as well -infectious disease consulted, continue IV vancomycin and meropenem -Medihoney and alginate to the ulcer -PICC line ordered, patient will need long-term antibiotics -recent foot x-ray with findings of osteomyelitis done as an outpatient -given his recurrent/new site of osteomyelitis, patient would benefit from LTAC placement for IV antibiotics, likely benefit from hyperbaric treatment, possible vascular workup/intervention -DM2, HLD - stable, continue home medications Code: full Dispo: SW/CM consulted for LTAC
--- NOTE | 2020-08-19 16:24 | P.PN ---
Subjective Date of Service: 08/19/20 Primary Care Provider: Dr. marrero Chief Complaint: Osteomyelitis Subjective: Improving (Acute events overnight. Patient reports some constipation and would like a laxative. Patient refused due to eat some of the food - stating if he becomes hypoglycemic it is our fault because he does not like the food and will not eat it) Review of Systems 10-point ROS is otherwise unremarkable Physical Examination - Vital Signs Temperature: 99 F Blood Pressure: 127/67 Pulse: 67 Respirations: 18 Pulse Ox (%): 96 - Studies Laboratory Data (last 24 hrs) 08/19/20 06:15: Sodium 139, Potassium 3.8, BUN 14, Creatinine 0.70, Glucose 113 H, Total Bilirubin 0.4, AST 14 L, ALT 19, Alkaline Phosphatase 76 08/19/20 06:15: WBC 7.70, Hgb 12.5 L, Hct 37.4 L, Plt Count 370 Microbiology Data (last 24 hrs): 08/18/20 13:18 Wound - Left Foot Gram Stain - Final Assessment & Plan Physician Review Additional Text: Physical Exam General: Alert, In no apparent distress HEENT: Normal conjunctiva, sclerae anicteric Respiratory: Clear to auscultation bilaterally, Normal air movement Cardiovascular: Regular rate/rhythm, Normal S1 S2 Abdomen: Soft, nontender, nondistended Ext: no edema Skin: Plantar diabetic ulcer at base/over metatarsal head of 1st toe, no surrounding erythema Assessment and Plan Osteomyelitis of the 1st metatarsal of the left foot Diabetes mellitus type 2 with hyperglycemia Hyperlipidemia -this is at least 4th time patient has had osteomyelitis, this is a different site than previously -has required prolonged IV antibiotics as well -infectious disease consulted, continue IV vancomycin and meropenem -Medihoney and alginate to the ulcer -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
[2020-08-20] MEDS: Meropenem 1,000 MG in NA CHLORIDE 0.9% 100 ML IV SCH ×3 (00:15→17:16)
[2020-08-20 06:19] LABS: BUN Blood Urea Nitrogen 16 mg/dL (7-18); Bicarbonate 29 mmol/L (21-32); Glucose Level 114 mg/dL (74-106); Potassium 4.3 mmol/L (3.5-5.1); Sodium Level 137 mmol/L (136-145)
[2020-08-20] MEDS: INSULIN -REGULAR HUMAN 50 UNIT/0.5 ML ML SQ SCH ×4 (07:30→21:00)
[2020-08-20] MEDS ORDERED: KETOROLAC 30 MG/ML INJ IV ONE (08:52)
--- NOTE | 2020-08-20 08:57 | P.PN ---
Subjective Date of Service: 08/20/20 Primary Care Provider: Dr. marrero Chief Complaint: Osteomyelitis Subjective: Other (Did not sleep well last night, due to right lumbar pain. Is a chronic issue, exacerbated by the hospital bed per patient. Otherwise doing well, denies fevers/chills, no diarrhea) Review of Systems 10-point ROS is otherwise unremarkable Physical Examination - Vital Signs Temperature: 98.2 F Blood Pressure: 142/70 Pulse: 75 Respirations: 16 Pulse Ox (%): 94 - Studies Laboratory Data (last 24 hrs) 08/20/20 05:50: Sodium 137, Potassium 4.3, BUN 16, Creatinine 0.78, Glucose 114 H Microbiology Data (last 24 hrs): 08/18/20 13:18 Wound - Left Foot Gram Stain - Final Assessment & Plan Physician Review Additional Text: Physical Exam General: Alert, in discomfort, sitting in chair at bedside leaning over HEENT: Normal conjunctiva, sclerae anicteric Respiratory: Clear to auscultation bilaterally, Normal air movement Cardiovascular: Regular rate/rhythm, Normal S1 S2 Abdomen: Soft, nontender, nondistended MSK: no muscle spasm appreciate, no tenderness along lumbar spinous processes Ext: no edema Skin: Plantar diabetic ulcer at base/over metatarsal head of 1st toe, no surrounding erythema Assessment and Plan Osteomyelitis of the 1st metatarsal of the left foot Diabetes mellitus type 2 with hyperglycemia Hyperlipidemia acute on chronic R lumbar pain -this is at least 4th time patient has had osteomyelitis, this is a different site than previously; has required prolonged IV antibiotics as well -infectious disease consulted, continue IV vancomycin and meropenem, -Medihoney and alginate to the ulcer -wound culture growing pseudomonas - sensitive to merrem -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
[2020-08-20] MEDS: VANCOMYCIN 1.75 GM in NA CHLORIDE 0.9% 500 ML IVPB SCH ×2 (09:24→21:00)
[2020-08-20] MEDS: METFORMIN HCL 500 MG TAB PO SCH ×2 (09:25→17:16)
[2020-08-20] MEDS: ATORVASTATIN 20 MG TAB PO SCH (09:25)
[2020-08-20] MEDS: LACTOBACILLUS/ACIDOPHILUS TAB PO SCH (09:25)
[2020-08-20] MEDS: ENOXAPARIN 40 MG/0.4 ML SQ SCH (09:25)
[2020-08-20] MEDS: MEDIHONEY 44 ML TOPICAL TUBE TOP SCH (09:26)
[2020-08-20] MEDS: HYDROCODONE/APAP 5/325 MG TAB PO PRN (09:27)
--- NOTE | 2020-08-20 20:03 | P.PN ---
Subjective Date of Service: 08/20/20 Primary Care Provider: Dr. marrero Chief Complaint: Osteomyelitis Subjective: No new changes (Pending acceptance to [facility]) Review of Systems 10-point ROS is otherwise unremarkable General: Unremarkable Eyes: Unremarkable ENT: Unremarkable Respiratory: Unremarkable Cardiovascular: Unremarkable Gastrointestinal: Unremarkable Genitourinary: Unremarkable Musculoskeletal: Unremarkable Integumentary: Other (Diabetic foot ulcer to left plantar aspect of the foot) Neurological: Unremarkable Lymphatics: Unremarkable Physical Examination - Vital Signs Temperature: 97.2 F Blood Pressure: 139/72 Pulse: 63 Respirations: 16 Pulse Ox (%): 96 - Physical Exam General: Alert, Oriented x3 HEENT: PERRLA Neck: Supple Respiratory: Clear to auscultation bilaterally, Normal air movement Cardiovascular: No edema, Normal pulses Gastrointestinal: Normal bowel sounds Musculoskeletal: No clubbing, No swelling, No contractures Integumentary: Diabetic ulcer (to left plantar aspect of the foot) Neurological: Normal gait, Normal speech, Normal affect - Studies Laboratory Data (last 24 hrs) 08/20/20 05:50: Sodium 137, Potassium 4.3, BUN 16, Creatinine 0.78, Glucose 114 H Microbiology Data (last 24 hrs): 08/18/20 13:18 Wound - Left Foot Gram Stain - Final 08/18/20 13:18 Wound - Left Foot Culture & Sensitivity - Final Pseudomonas Aeruginosa Assessment And Plan - Plan Continue IV antibiotic treatment for 6 weeks. Placement to LTAC with hyperbaric oxygen treatment to treat osteomyelitis is recommended. Patient has had recurrent osteomyelitis of the past few years and would greatly benefit from hyperbaric oxygen treatments as well as intensive wound care. Blood cultures of left foot showed psudomanas aeruginosa, covered by current antibotic treatment. inflammatory markers: CRP elevated at 48.8. Procalcitonin within normal limits. hemoglobin A1c 12.0. Strict glucose monitoring for proper wound healing. Medical management per primary team Continue to monitor CBC and BMP Continue to monitor for signs and symptoms of infection Plan of care discussed with Dr. Ryan Thank you for consultation Discharge Plan: LTAC Plan to discharge in: Greater than 2 days Physician Review Additional Text: Physical Exam General: Alert, in discomfort, sitting in chair at bedside leaning over HEENT: Normal conjunctiva, sclerae anicteric Respiratory: Clear to auscultation bilaterally, Normal air movement Cardiovascular: Regular rate/rhythm, Normal S1 S2 Abdomen: Soft, nontender, nondistended MSK: no muscle spasm appreciate, no tenderness along lumbar spinous processes Ext: no edema Skin: Plantar diabetic ulcer at base/over metatarsal head of 1st toe, no surrounding erythema Assessment and Plan Osteomyelitis of the 1st metatarsal of the left foot Diabetes mellitus type 2 with hyperglycemia Hyperlipidemia acute on chronic R lumbar pain -this is at least 4th time patient has had osteomyelitis, this is a different site than previously; has required prolonged IV antibiotics as well -infectious disease consulted, continue IV vancomycin and meropenem, -Medihoney and alginate to the ulcer -wound culture growing pseudomonas - sensitive to merrem -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
[2020-08-21] MEDS: Meropenem 1,000 MG in NA CHLORIDE 0.9% 100 ML IV SCH ×3 (00:36→16:37)
[2020-08-21] MEDS: HYDROCODONE/APAP 5/325 MG TAB PO PRN ×3 (01:30→12:59)
[2020-08-21] MEDS: INSULIN -REGULAR HUMAN 50 UNIT/0.5 ML ML SQ SCH ×4 (07:30→20:28)
[2020-08-21] MEDS: METFORMIN HCL 500 MG TAB PO SCH ×2 (09:02→16:36)
[2020-08-21] MEDS: ENOXAPARIN 40 MG/0.4 ML SQ SCH (09:02)
[2020-08-21] MEDS: ATORVASTATIN 20 MG TAB PO SCH (09:02)
[2020-08-21] MEDS: LACTOBACILLUS/ACIDOPHILUS TAB PO SCH (09:02)
[2020-08-21] MEDS ORDERED: CYCLOBENZAPRINE 10 MG TAB PO PRN (10:29)
--- NOTE | 2020-08-21 10:37 | P.PN ---
Subjective Date of Service: 08/21/20 Primary Care Provider: Dr. marrero Chief Complaint: Osteomyelitis Subjective: Other (R flank pain yesterday resolved temporarily after toradol. pt states similar to chronic pain but more severe. otherwise doing well, +BM yesterday after miralax) Review of Systems 10-point ROS is otherwise unremarkable Physical Examination - Vital Signs Temperature: 97.0 F Blood Pressure: 138/66 Pulse: 99 Respirations: 18 Pulse Ox (%): 96 - Studies Microbiology Data (last 24 hrs): 08/18/20 13:18 Wound - Left Foot Gram Stain - Final 08/18/20 13:18 Wound - Left Foot Culture & Sensitivity - Final Pseudomonas Aeruginosa Assessment & Plan Physician Review Additional Text: Physical Exam General: Alert, NAD HEENT: Normal conjunctiva, sclerae anicteric Respiratory: Clear to auscultation bilaterally, Normal air movement Cardiovascular: Regular rate/rhythm, no murmur Abdomen: Soft, nontender, nondistended MSK: L lumbar paraspinal muscle tenderness, tight, no CVA tenderness, no TTP along spine Ext: no edema Skin: Plantar diabetic ulcer at base/over metatarsal head of 1st toe, no surrounding erythema, dressing in place Assessment and Plan Osteomyelitis of the 1st metatarsal of the left foot Diabetes mellitus type 2 with hyperglycemia Hyperlipidemia Acute on chronic R lumbar pain -this is at least 4th time patient has had osteomyelitis, this is a different site than previously; has required prolonged IV antibiotics as well -infectious disease consulted, continue IV vancomycin and meropenem, -Medihoney and alginate to the ulcer -wound culture growing pseudomonas -PICC line placed 08/18 for care home antibiotics -recent foot x-ray with findings of osteomyelitis done as an outpatient -DM2, HLD - stable, continue home medications -A1c> 12 -MiraLax PRN -heating pad, PT consulted for stretching exercises -pt denies h/o renal stones, UA on admission was ok, will obtain KUB -trial of flexeril, seems to be R paraspinal muscles, likely from laying in the hospital bed Code: full Dispo: SW/CM consulted for LTAC -given his recurrent/new site of osteomyelitis, patient would benefit from LTAC placement for IV antibiotics, likely benefit from hyperbaric treatment, possible vascular workup/intervention Time Spent Managing Pts Care (In Minutes): 35
--- NOTE | 2020-08-21 15:21 | RAD REPORT ---
EXAM DESCRIPTION: RAD - Abdomen 1 View (KUB) - 08/21/2020 2:40 pm CLINICAL HISTORY: R lower back/flank pain, eval for nephrolithiasis Pain COMPARISON: Abdomen 1 View (KUB) dated 01/17/2016 FINDINGS: The bowel gas pattern is non-obstructive. No evidence of free air or pneumatosis. No suspi cious calcifications. No significant bony findings. IMPRESSION: Negative examination.
[2020-08-21] MEDS: VANCOMYCIN 1.75 GM in NA CHLORIDE 0.9% 500 ML IVPB SCH (21:30)
[2020-08-22] MEDS: Meropenem 1,000 MG in NA CHLORIDE 0.9% 100 ML IV SCH ×3 (00:28→16:07)
[2020-08-22 06:18] LABS: Absolute Lymphocytes (CBC) 1.8 K/uL (0.7-4.9); Basophils % 0.9 % (0-1.3); Hematocrit 35.4 % (39.6-49.0); Lymphocytes % 26.7 % (15.3-44.8); MPV 7.3 fL (7.6-11.3); RBC Red Blood Cell Count 4.54 M/uL (4.33-5.43)
[2020-08-22 06:30] LABS: ALT/SGPT 18 U/L (12-78); AST/SGOT 11 U/L (15-37); Albumin 2.8 g/dL (3.4-5.0); Alkaline Phosphatase 74 U/L (45-117); BUN Blood Urea Nitrogen 18 mg/dL (7-18); Bicarbonate 28 mmol/L (21-32); Bilirubin Total 0.2 mg/dL (0.2-1.0); Glucose Level 123 mg/dL (74-106); Protein, Total 7.1 g/dL (6.4-8.2); Sodium Level 139 mmol/L (136-145)
[2020-08-22] MEDS: INSULIN -REGULAR HUMAN 50 UNIT/0.5 ML ML SQ SCH ×4 (07:30→21:00)
[2020-08-22] MEDS: LACTOBACILLUS/ACIDOPHILUS TAB PO SCH (08:28)
[2020-08-22] MEDS: METFORMIN HCL 500 MG TAB PO SCH ×2 (08:28→16:11)
[2020-08-22] MEDS: RIVAROXABAN 10 MG TABLET PO SCH (08:29)
[2020-08-22] MEDS: ATORVASTATIN 20 MG TAB PO SCH (08:29)
--- NOTE | 2020-08-22 09:48 | P.PN ---
Subjective Date of Service: 08/22/20 Primary Care Provider: Dr. marrero Chief Complaint: Osteomyelitis Subjective: Improving (Yesterday his back pain resolved after 1 dose of muscle relaxer. KUB negative for stone Patient reports doing well, no nausea/vomiting, no abdominal pain, no dysuria, passing flatus) Review of Systems 10-point ROS is otherwise unremarkable Physical Examination - Vital Signs Temperature: 97.2 F Blood Pressure: 139/76 Pulse: 63 Respirations: 17 Pulse Ox (%): 98 - Studies Laboratory Data (last 24 hrs) 08/22/20 05:55: Sodium 139, Potassium 4.0, BUN 18, Creatinine 0.66, Glucose 123 H, Total Bilirubin 0.2, AST 11 L, ALT 18, Alkaline Phosphatase 74 08/22/20 05:55: WBC 6.80, Hgb 12.0 L, Hct 35.4 L, Plt Count 311 08/22/20 05:21: Magnesium 1.9 Assessment & Plan Physician Review Additional Text: Physical Exam General: Alert, NAD HEENT: Normal conjunctiva, sclera anicteric Respiratory: Clear to auscultation bilaterally, Normal air movement Cardiovascular: Regular rate/rhythm, no murmur Abdomen: Soft, nontender, nondistended Ext: no edema Skin: Plantar diabetic ulcer at base/over metatarsal head of 1st toe, no surrounding erythema, dressing in place Assessment and Plan Osteomyelitis of the 1st metatarsal of the left foot Diabetes mellitus type 2 with hyperglycemia Hyperlipidemia Acute on chronic R lumbar pain, resolved -recent foot x-ray with findings of osteomyelitis done as an outpatient -this is at least 4th time patient has had osteomyelitis, this is a different site than previously; has required prolonged IV antibiotics as well -infectious disease consulted, continue IV vancomycin and meropenem, -Medihoney and alginate to the ulcer -wound culture growing pseudomonas -PICC line placed 08/18 for [facility] antibiotics -DM2, HLD - stable, continue home medications -A1c> 12 -MiraLax PRN -heating pad, PT consulted for stretching exercises -PRN flexeril, seems to be R paraspinal muscles, likely from laying in the hospital bed -improved Code: full Dispo: SW/CM consulted for LTAC -given his recurrent/new site of osteomyelitis, patient would benefit from LTAC placement for IV antibiotics, likely benefit from hyperbaric treatment, possible vascular workup/intervention Time Spent Managing Pts Care (In Minutes): 35
[2020-08-22] MEDS: VANCOMYCIN 1.75 GM in NA CHLORIDE 0.9% 500 ML IVPB SCH (13:00)
--- NOTE | 2020-08-22 16:49 | P.PN ---
Subjective Date of Service: 08/22/20 Primary Care Provider: Dr. marrero Chief Complaint: Osteomyelitis Patient seen and examined at bedside. Denies any acute complaints, still awaiting transfer to LTAC for hyperbaric oxygen treatments. Review of Systems 10-point ROS is otherwise unremarkable Physical Examination - Vital Signs Temperature: 98.0 F Blood Pressure: 144/65 Pulse: 68 Respirations: 18 Pulse Ox (%): 97 - Studies Laboratory Data (last 24 hrs) 08/22/20 05:55: Sodium 139, Potassium 4.0, BUN 18, Creatinine 0.66, Glucose 123 H, Total Bilirubin 0.2, AST 11 L, ALT 18, Alkaline Phosphatase 74 08/22/20 05:55: WBC 6.80, Hgb 12.0 L, Hct 35.4 L, Plt Count 311 08/22/20 05:21: Magnesium 1.9 Assessment And Plan - Plan General: Alert, In no apparent distress, Oriented x3 HEENT: Atraumatic, Normocephalic Neck: Supple, 2+ carotid pulse no bruit, JVD not distended Respiratory: Clear to auscultation bilaterally, Normal air movement Cardiovascular: No edema, Normal pulses, Regular rate/rhythm Capillary refill: <2 Seconds Gastrointestinal: Normal bowel sounds Musculoskeletal: No clubbing, No swelling, No contractures Integumentary: Diabetic ulcer (to left plantar aspect of foot) Neurological: Normal gait, Normal speech Lymphatics: No axilla or inguinal lymphadenopathy Conclusions/Impression: Antibiotics: vancomycin start: 08/18 stop: 09/29 Indication: Osteomyelitis merum start; 08/18 stop: 09/29 Indication: Osteomyelitis Assessment: -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 Patient has had recurrent osteomyelitis of the past few years and would greatly benefit from hyperbaric oxygen treatments as well as intensive wound care. Patient like to avoid amputation and as such treat in an LTAC with hyperbaric oxygen treatment is the best placement for the patient. -wound care for diabetic ulcer: [place] with Betadine and wrapped Kerlix -wound cultures grew Pseudomonas aeruginosa sensitive to meropenem. -blood cultures negative - inflammatory markers: CRP down trending. Procalcitonin within normal limits. - hemoglobin A1c 12.0. Strict glucose monitoring needed for proper wound healing. -medical management per primary team -continue monitor CBC and BMP -continue monitor for signs of infection Plan of care discussed with Dr. Ryan Thank you for consultation
[2020-08-23] MEDS: Meropenem 1,000 MG in NA CHLORIDE 0.9% 100 ML IV SCH ×2 (00:22→09:06)
[2020-08-23 05:48] LABS: Ferritin 153.6 ng/mL (26-388)
[2020-08-23] MEDS: INSULIN -REGULAR HUMAN 50 UNIT/0.5 ML ML SQ SCH ×4 (07:30→20:24)
[2020-08-23] MEDS: MEDIHONEY 44 ML TOPICAL TUBE TOP SCH ×2 (09:00)
[2020-08-23] MEDS: ATORVASTATIN 20 MG TAB PO SCH (09:03)
[2020-08-23] MEDS: LACTOBACILLUS/ACIDOPHILUS TAB PO SCH (09:03)
[2020-08-23] MEDS: RIVAROXABAN 10 MG TABLET PO SCH (09:03)
[2020-08-23] MEDS: VANCOMYCIN 1.75 GM in NA CHLORIDE 0.9% 500 ML IVPB SCH (09:03)
[2020-08-23] MEDS: METFORMIN HCL 500 MG TAB PO SCH ×2 (09:04→16:34)
--- NOTE | 2020-08-23 10:07 | P.PN ---
Subjective Date of Service: 08/23/20 Primary Care Provider: Dr. marrero Chief Complaint: Osteomyelitis Patient seen and examined at bedside. No acute changes, the patient is feeling well. Awaiting transfer. Review of Systems 10-point ROS is otherwise unremarkable Physical Examination - Vital Signs Temperature: 97.2 F Blood Pressure: 137/74 Pulse: 62 Respirations: 17 Pulse Ox (%): 97 - Studies Microbiology 08/18/20 13:18 Wound - Left Foot Gram Stain - Final 08/18/20 13:18 Wound - Left Foot Culture & Sensitivity - Final Pseudomonas Aeruginosa 08/18/20 12:00 Blood - Blood Aerobic Blood Culture - Preliminary No growth in 24 hours. 08/18/20 12:00 Blood - Blood Anaerobic Blood Culture - Preliminary No growth in 24 hours. Assessment And Plan - Plan General: Alert, In no apparent distress, Oriented x3 HEENT: Atraumatic, Normocephalic Neck: Supple, 2+ carotid pulse no bruit, JVD not distended Respiratory: Clear to auscultation bilaterally, Normal air movement Cardiovascular: No edema, Normal pulses, Regular rate/rhythm Capillary refill: <2 Seconds Gastrointestinal: Normal bowel sounds Musculoskeletal: No clubbing, No swelling, No contractures Integumentary: Diabetic ulcer (to left plantar aspect of foot) Neurological: Normal gait, Normal speech Lymphatics: No axilla or inguinal lymphadenopathy Conclusions/Impression: Antibiotics: vancomycin start: 08/18 stop: 09/29 Indication: Osteomyelitis merum start; 08/18 stop: 09/29 Indication: Osteomyelitis Assessment: -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 Patient has had recurrent osteomyelitis of the past few years and would greatly benefit from hyperbaric oxygen treatments as well as intensive wound care. Patient like to avoid amputation and as such treat in an LTAC with hyperbaric oxygen treatment is the best placement for the patient. -wound care for diabetic ulcer: [place] with Betadine and wrapped Kerlix -wound cultures grew Pseudomonas aeruginosa sensitive to meropenem. -blood cultures negative - inflammatory markers: CRP down trending. Procalcitonin within normal limits. - hemoglobin A1c 12.0. Strict glucose monitoring needed for proper wound healing. -medical management per primary team -continue monitor CBC and BMP -continue monitor for signs of infection Plan of care discussed with Dr. Ryan Thank you for consultation
[2020-08-23] MEDS: CIPROFLOXACIN 400mg IV 400 MG/200 ML BAG IV SCH (13:42)
[2020-08-23] MEDS: CEFEPIME/SWI 2gm 2 GM/20 ML SYR IV SCH (17:09)
--- NOTE | 2020-08-23 17:18 | P.PN ---
Subjective Date of Service: 08/23/20 Primary Care Provider: Dr. marrero Chief Complaint: Osteomyelitis Subjective: No new changes Patient has no new complain. Physical Examination - Vital Signs Temperature: 97.3 F Blood Pressure: 167/77 Pulse: 75 Respirations: 18 Pulse Ox (%): 98 - Physical Exam General: Alert, In no apparent distress Respiratory: Clear to auscultation bilaterally, Normal air movement Cardiovascular: No edema, Regular rate/rhythm, Normal S1 S2 Gastrointestinal: Soft and benign, Non-distended, No tenderness Musculoskeletal: No swelling, Other (Left foot dressed) Neurological: Normal strength at 5/5 x4 extr - Studies Microbiology Data (last 24 hrs): 08/18/20 12:00 Blood - Blood Aerobic Blood Culture - Final No growth in 5 days. 08/18/20 12:00 Blood - Blood Anaerobic Blood Culture - Final No growth in 5 days. Assessment And Plan Physician Review Additional Text: Physical Exam General: Alert, NAD HEENT: Normal conjunctiva, sclera anicteric Respiratory: Clear to auscultation bilaterally, Normal air movement Cardiovascular: Regular rate/rhythm, no murmur Abdomen: Soft, nontender, nondistended Ext: no edema Skin: Plantar diabetic ulcer at base/over metatarsal head of 1st toe, no surrounding erythema, dressing in place Assessment and Plan Osteomyelitis of the 1st metatarsal of the left foot Diabetes mellitus type 2 with hyperglycemia Hyperlipidemia Acute on chronic R lumbar pain, resolved -recent foot x-ray with findings of osteomyelitis done as an outpatient -history of recurrent osteomyelitis. this is at least 4th time patient has had osteomyelitis. Prior history of prolonged IV antibiotics for osteomyelitis. -infectious disease is following. He is on IV vancomycin and meropenem, - Medihoney and alginate to the ulcer -wound culture growing pseudomonas -PICC line placed 08/18 for longterm antibiotics -DM2, HLD - stable, continue home medications -A1c> 12 -MiraLax PRN -PRN flexeril for back pain. Code: full Dispo: SW/CM consulted for LTAC -given his recurrent/new site of osteomyelitis, patient would benefit from LTAC placement for IV antibiotics, likely benefit from hyperbaric treatment, possible vascular workup/intervention. Patient initially denied LTAC placement. Peer to peer to be done by Dr. Ryan.
[2020-08-24] MEDS: CEFEPIME/SWI 2gm 2 GM/20 ML SYR IV SCH ×3 (00:07→17:26)
[2020-08-24] MEDS: CIPROFLOXACIN 400mg IV 400 MG/200 ML BAG IV SCH ×2 (04:04→17:26)
[2020-08-24] MEDS: INSULIN -REGULAR HUMAN 50 UNIT/0.5 ML ML SQ SCH ×4 (07:30→20:15)
[2020-08-24] MEDS: ATORVASTATIN 20 MG TAB PO SCH (08:58)
[2020-08-24] MEDS: METFORMIN HCL 500 MG TAB PO SCH ×2 (08:58→17:26)
[2020-08-24] MEDS: LACTOBACILLUS/ACIDOPHILUS TAB PO SCH (08:59)
[2020-08-24] MEDS: RIVAROXABAN 10 MG TABLET PO SCH (09:50)
--- NOTE | 2020-08-24 10:00 | P.PN ---
Subjective Date of Service: 08/24/20 Primary Care Provider: Dr. marrero Chief Complaint: Osteomyelitis Patient seen and examined at bedside. Hyperglycemia, continue O close glucose monitoring. Still awaiting transport to [facility]. Review of Systems 10-point ROS is otherwise unremarkable Physical Examination - Vital Signs Temperature: 96.9 F Blood Pressure: 136/75 Pulse: 62 Respirations: 20 Pulse Ox (%): 95 - Studies Temp Pulse Resp BP Pulse Ox 96.9 F 62 20 136/75 95 08/24/20 08:00 08/24/20 08:00 08/24/20 08:00 08/24/20 08:00 08/24/20 08:00 Laboratory Last Values WBC 6.80 K/uL (4.3-10.9) 08/22/20 05:55 RBC 4.54 M/uL (4.33-5.43) 08/22/20 05:55 Hgb 12.0 g/dL (13.6-17.9) L 08/22/20 05:55 Hct 35.4 % (39.6-49.0) L 08/22/20 05:55 MCV 78.0 fL (80-100) L 08/22/20 05:55 MCH 26.5 pg (27.0-35.0) L 08/22/20 05:55 MCHC 34.0 g/dL (32.0-36.0) 08/22/20 05:55 RDW 13.2 % (12.1-15.2) 08/22/20 05:55 Plt Count 311 K/uL (152-406) 08/22/20 05:55 MPV 7.3 fL (7.6-11.3) L 08/22/20 05:55 Neutrophils % 61.9 % (41.7-73.7) 08/22/20 05:55 Lymphocytes % 26.7 % (15.3-44.8) 08/22/20 05:55 Monocytes % 7.6 % (3.3-12.3) 08/22/20 05:55 Eosinophils % 2.9 % (0-4.4) 08/22/20 05:55 Basophils % 0.9 % (0-1.3) 08/22/20 05:55 Absolute Neutrophils 4.2 K/uL (1.8-8.0) 08/22/20 05:55 Absolute Lymphocytes 1.8 K/uL (0.7-4.9) 08/22/20 05:55 Absolute Monocytes 0.5 K/uL (0.1-1.3) 08/22/20 05:55 Absolute Eosinophils 0.2 K/uL (0-0.5) 08/22/20 05:55 Absolute Basophils 0.1 K/uL (0-0.5) 08/22/20 05:55 ESR [place]gren 74 mm/HR (0-20) H 08/19/20 06:15 Sodium 139 mmol/L (136-145) 08/22/20 05:55 Potassium 4.0 mmol/L (3.5-5.1) 08/22/20 05:55 Chloride 107 mmol/L (98-107) 08/22/20 05:55 Carbon Dioxide 28 mmol/L (21-32) 08/22/20 05:55 BUN 18 mg/dL (7-18) 08/22/20 05:55 Creatinine 0.66 mg/dL (0.55-1.3) 08/22/20 05:55 Estimated GFR > 90 mL/min (=/>90) 08/22/20 05:55 Glucose 123 mg/dL (74-106) H 08/22/20 05:55 POC Glucose 144 mg/dL (65-120) H 08/21/20 20:23 Hemoglobin A1c 12.0 % (4.2-6.3) H 08/18/20 12:00 Calcium 8.7 mg/dL (8.5-10.1) 08/22/20 05:55 Magnesium 1.9 mg/dL (1.8-2.4) 08/22/20 05:21 Iron 53.0 ug/dL (65-175) L 08/23/20 05:12 TIBC 249 ug/dL (250-460) L 08/23/20 05:12 Transferrin 178 mg/dL (200-360) L 08/23/20 05:12 Transferrin % Sat 21.3 % (20.0-50.0) 08/23/20 05:12 Ferritin 153.6 ng/mL (26-388) 08/23/20 05:12 Total Bilirubin 0.2 mg/dL (0.2-1.0) 08/22/20 05:55 AST 11 U/L (15-37) L 08/22/20 05:55 ALT 18 U/L (12-78) 08/22/20 05:55 Alkaline Phosphatase 74 U/L (45-117) 08/22/20 05:55 C-Reactive Protein 16.90 mg/L (<3.00) H 08/22/20 05:55 Serum Total Protein 7.1 g/dL (6.4-8.2) 08/22/20 05:55 Albumin 2.8 g/dL (3.4-5.0) L 08/22/20 05:55 Globulin 4.3 g/dL (2.3-3.5) H 08/22/20 05:55 Albumin/Globulin Ratio 0.7 (1.1-1.8) L 08/22/20 05:55 Procalcitonin < 0.05 ng/mL (<0.050) 08/18/20 04:05 Urine Color Yellow (Yellow) 08/18/20 14:00 Urine Appearance Clear (Clear) 08/18/20 14:00 Urine pH 6.0 (5.0-7.0) 08/18/20 14:00 Ur Specific [place] >=1.030 (1.005-1.030) 08/18/20 14:00 Glucose (UA)(Auto) 3+ (Negative) H 08/18/20 14:00 Urine Ketones Negative (Negative) 08/18/20 14:00 Urine Blood Negative (Negative) 08/18/20 14:00 Urine Nitrite Negative (Negative) 08/18/20 14:00 Urine Bilirubin Negative (Negative) 08/18/20 14:00 Urine Urobilinogen 0.2 mg/dL (0.2-1.0) 08/18/20 14:00 Ur Leukocyte Esterase Negative (Negative) 08/18/20 14:00 Urine Total Protein Negative (Negative) 08/18/20 14:00 Vancomycin Trough 11.7 ug/mL (5.0-20.0) 08/23/20 07:00 SARS-CoV-2 RNA (RT-PCR) Negative (NEGATIVE) 08/17/20 21:10 Microbiology Data (last 24 hrs): 08/18/20 12:00 Blood - Blood Aerobic Blood Culture - Final No growth in 5 days. 08/18/20 12:00 Blood - Blood Anaerobic Blood Culture - Final No growth in 5 days. Assessment And Plan - Plan General: Alert, In no apparent distress, Oriented x3 HEENT: Atraumatic, Normocephalic Neck: Supple, 2+ carotid pulse no bruit, JVD not distended Respiratory: Clear to auscultation bilaterally, Normal air movement Cardiovascular: No edema, Normal pulses, Regular rate/rhythm Capillary refill: <2 Seconds Gastrointestinal: Normal bowel sounds Musculoskeletal: No clubbing, No swelling, No contractures Integumentary: Diabetic ulcer (to left plantar aspect of foot)-base of the wound is exposed necrotic slough tissue. Patient has neuropathy 2 bilateral lower extremity is from the ankle down. 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 Patient has had recurrent osteomyelitis of the past few years and would greatly benefit from hyperbaric oxygen treatments as well as intensive wound care. Patient like to avoid amputation and as such treat in an LTAC with hyperbaric oxygen treatment is the best placement for the patient. -wound care for diabetic ulcer: [place] with Betadine and wrapped Kerlix -wound cultures grew Pseudomonas aeruginosa sensitive to meropenem. -blood cultures negative - inflammatory markers: CRP down trending. Procalcitonin within normal limits. - hemoglobin A1c 12.0. Strict glucose monitoring needed for proper wound healing. -medical management per primary team -continue monitor CBC and BMP -continue monitor for signs of infection Plan of care discussed with Dr. Ryan Thank you for consultation
--- NOTE | 2020-08-24 15:38 | P.PN ---
Subjective Date of Service: 08/24/20 Primary Care Provider: Dr. marrero Chief Complaint: Osteomyelitis Patient has no new complain. Physical Examination - Vital Signs Temperature: 97.2 F Blood Pressure: 181/93 Pulse: 67 Respirations: 18 Pulse Ox (%): 96 - Physical Exam General: Alert, In no apparent distress Respiratory: Clear to auscultation bilaterally, Normal air movement Cardiovascular: No edema, Regular rate/rhythm, Normal S1 S2 Gastrointestinal: Soft and benign, Non-distended, No tenderness Musculoskeletal: No swelling Neurological: Normal strength at 5/5 x4 extr - Studies Microbiology Data (last 24 hrs): 08/18/20 12:00 Blood - Blood Aerobic Blood Culture - Final No growth in 5 days. 08/18/20 12:00 Blood - Blood Anaerobic Blood Culture - Final No growth in 5 days. Assessment And Plan Physician Review Additional Text: Assessment and Plan Osteomyelitis of the 1st metatarsal of the left foot Diabetes mellitus type 2 with hyperglycemia Hyperlipidemia Acute on chronic R lumbar pain, resolved -recent foot x-ray with findings of osteomyelitis done as an outpatient -history of recurrent osteomyelitis. this is at least 4th time patient has had osteomyelitis. Prior history of prolonged IV antibiotics for osteomyelitis. -infectious disease is following. Antibiotics switched to IV ciprofloxacin and cefepime -Medihoney and alginate to the ulcer -wound culture growing pseudomonas. -6 weeks antibiotic therapy at LTAC recommended. -infectious disease is assisting with disposition. Dr. Ryan plans to do peer to peer regarding insurance denial to LTAC. -PICC line placed 08/18 for long term care social worker antibiotics -DM2, HLD - stable, continue home medications -A1c> 12 -MiraLax PRN -PRN flexeril for back pain. Code: full Dispo: SW/CM consulted for LTAC -given his recurrent/new site of osteomyelitis.
[2020-08-25] MEDS: CIPROFLOXACIN 400mg IV 400 MG/200 ML BAG IV SCH ×2 (04:00→16:08)
[2020-08-25] MEDS: INSULIN -REGULAR HUMAN 50 UNIT/0.5 ML ML SQ SCH ×4 (07:30→20:36)
[2020-08-25] MEDS: MEDIHONEY 44 ML TOPICAL TUBE TOP SCH (09:00)
[2020-08-25] MEDS: RIVAROXABAN 10 MG TABLET PO SCH (09:23)
[2020-08-25] MEDS: LACTOBACILLUS/ACIDOPHILUS TAB PO SCH (09:23)
[2020-08-25] MEDS: METFORMIN HCL 500 MG TAB PO SCH ×2 (09:23→16:08)
[2020-08-25] MEDS: ATORVASTATIN 20 MG TAB PO SCH (09:23)
[2020-08-25] MEDS: CEFEPIME/SWI 2gm 2 GM/20 ML SYR IV SCH ×3 (09:24→16:08)
--- NOTE | 2020-08-25 09:44 | P.PN ---
Subjective Date of Service: 08/25/20 Primary Care Provider: Dr. marrero Chief Complaint: Osteomyelitis Patient seen and examined at bedside. Will know if patient is accepted or declined for LTAC by today. Review of Systems 10-point ROS is otherwise unremarkable Physical Examination - Vital Signs Temperature: 97.3 F Blood Pressure: 169/68 Pulse: 76 Respirations: 18 Pulse Ox (%): 98 - Studies Active Medications Hydrocodone Bitart/Acetaminophen (Hydrocodone/Apap 5/325 Mg Tab) 1 tab PO Q6H PRN PRN Reason: Pain scale 5-7 (Moderate) Last Admin: 08/21/20 12:59 Dose: 1 tab Documented by: Atorvastatin Calcium (Atorvastatin 20 Mg Tab) 20 mg PO DAILY [facility] Last Admin: 08/25/20 09:23 Dose: 20 mg Documented by: Cyclobenzaprine HCl (Cyclobenzaprine 10 Mg Tab) 10 mg PO TIDP PRN PRN Reason: MUSCLE SPASMS Last Admin: 08/21/20 16:36 Dose: 10 mg Documented by: Emollient Gel (Medihoney 44 Ml Topical Tube) 1 appl TOP TuThSa@0900 [facility] Last Admin: 08/25/20 09:00 Dose: Not Given Documented by: Home Med (Dapagliflozin Propanediol [Farxiga]) 10 mg PO DAILY [facility] Last Admin: 08/25/20 09:00 Dose: Not Given Documented by: Home Med (Insulin Glargine/Lixisenatide [Soliqua 100 Unit-33 Mcg/Ml Pen]) 18 units SQ DAILY [facility] Last Admin: 08/25/20 09:00 Dose: Not Given Documented by: Cefepime HCl (Maxipime 2 Gm/20 Ml Swi Ivp) 2 gm in 20 mls @ 240 mls/hr IV Q8HR [facility] Last Admin: 08/25/20 09:24 Dose: 20 mls Documented by: Ciprofloxacin/Dextrose (Cipro 400 Mg/200 Ml Ivpb (Premix)) 400 mg in 200 mls @ 200 mls/hr IV 0500,1700 [facility] Last Admin: 08/25/20 04:00 Dose: 200 mls Documented by: Insulin Human Regular (Insulin -Regular Human 50 Unit/0.5 Ml Ml) 0 unit SQ ACHS [facility]; Protocol Last Admin: 08/25/20 07:30 Dose: Not Given Documented by: Lactobacillus Acidoph/[place] (Lactobacillus/Acidophilus Tab) 1 tab PO DAILY [facility] Last Admin: 08/25/20 09:23 Dose: 1 tab Documented by: Metformin HCl (Metformin Hcl 500 Mg Tab) 1,000 mg PO BIDWM [facility] Last Admin: 08/25/20 09:23 Dose: 1,000 mg Documented by: Ondansetron HCl (Ondansetron 4 Mg/2 Ml Vial) 4 mg IV Q6HP PRN PRN Reason: NAUSEA / VOMITING Polyethylene Glycol (Polyethyl Gly 3350 17 Gm/Dose) 17 gm PO DAILY PRN PRN Reason: CONSTIPATION Last Admin: 08/19/20 09:44 Dose: 17 gm Documented by: Rivaroxaban (Rivaroxaban 10 Mg Tablet) 10 mg PO DAILY [facility] Last Admin: 08/25/20 09:23 Dose: 10 mg Documented by: Sodium Chloride (Flush Normal Saline 10 Ml) 10 ml IV BID [facility] Last Admin: 08/25/20 09:00 Dose: 10 ml Documented by: Temp Pulse Resp BP Pulse Ox 97.3 F 76 18 169/68 H 98 08/25/20 08:00 08/25/20 08:00 08/25/20 08:00 08/25/20 08:00 08/25/20 08:00 Assessment And Plan - Plan General: Alert, In no apparent distress, Oriented x3 HEENT: Atraumatic, Normocephalic Neck: Supple, 2+ carotid pulse no bruit, JVD not distended Respiratory: Clear to auscultation bilaterally, Normal air movement Cardiovascular: No edema, Normal pulses, Regular rate/rhythm Capillary refill: <2 Seconds Gastrointestinal: Normal bowel sounds Musculoskeletal: No clubbing, No swelling, No contractures Integumentary: Diabetic ulcer (to left plantar aspect of foot)-base of the wound is exposed necrotic slough tissue. Patient has neuropathy 2 bilateral lower extremity is from the ankle down. 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 Patient has had recurrent osteomyelitis of the past few years and would greatly benefit from hyperbaric oxygen treatments as well as intensive wound care. Patient like to avoid amputation and as such treat in an LTAC with hyperbaric oxygen treatment is the best placement for the patient. -wound care for diabetic ulcer: [place] with Betadine and wrapped Kerlix -wound cultures grew Pseudomonas aeruginosa- continue treatment with two antibiotics -blood cultures negative - inflammatory markers: CRP down trending. Procalcitonin within normal limits. - hemoglobin A1c 12.0. Strict glucose monitoring needed for proper wound healing. -medical management per primary team -continue monitor CBC and BMP -continue monitor for signs of infection Plan of care discussed with Dr. Ryan Thank you for consultation
--- NOTE | 2020-08-25 10:59 | P.PN ---
Subjective Date of Service: 08/25/20 Primary Care Provider: Dr. marrero Chief Complaint: Osteomyelitis Subjective: No new changes (anxious to go LTAC) Physical Examination - Vital Signs Temperature: 97.3 F Blood Pressure: 169/68 Pulse: 76 Respirations: 18 Pulse Ox (%): 98 - Physical Exam General: Alert, In no apparent distress, Oriented x3 HEENT: Atraumatic, Normocephalic, PERRLA Neck: Supple, 2+ carotid pulse no bruit Respiratory: Clear to auscultation bilaterally, Normal air movement Cardiovascular: No edema, Regular rate/rhythm, Normal S1 S2 Gastrointestinal: Normal bowel sounds, Soft and benign, Non-distended Musculoskeletal: Other (Left foot dressing) Neurological: Normal gait, Normal speech, Normal strength at 5/5 x4 extr Assessment And Plan Physician Review Additional Text: Assessment and Plan Osteomyelitis of the 1st metatarsal of the left foot Diabetes mellitus type 2 with hyperglycemia Hyperlipidemia Acute on chronic R lumbar pain, resolved PLAN -Awaiting planned for LTAC placement, discuss with Dr. Ryan discussed , state appeals made , awaiting decision today - Recent foot x-ray with findings of osteomyelitis done as an outpatient - History of recurrent osteomyelitis. This is at least 4th time patient has had osteomyelitis. Prior history of prolonged IV antibiotics for osteomyelitis. -infectious disease is following. Antibiotics switched to IV ciprofloxacin and cefepime -Medihoney and alginate to the ulcer -wound culture growing pseudomonas. -6 weeks antibiotic therapy at LTAC recommended. -infectious disease is assisting with disposition. Dr. Ryan plans to do peer to peer regarding insurance denial to LTAC. -PICC line placed 08/18 for bed bug exterminator antibiotics -DM2, HLD - stable, continue home medications -A1c> 12 -MiraLax PRN -PRN flexeril for back pain. Code: full Dispo: SW/CM consulted for LTAC -given his recurrent/new site of osteomyelitis.
--- NOTE | 2020-08-25 17:07 | P.DS ---
Admission Date: 08/17/20 Discharge Date: 08/25/20 Primary Care Provider: Dr. marrero [facility]position[facility] Discharge Condition: FAIR Reason for Admission: Osteomyelitis Brief History of Present Illness: History of Present Illness: 55-year-old male with history of diabetes mellitus type 2, hyperlipidemia presents emergency department for confirmed osteomyelitis of the left foot. Patient sees infectious disease doctor on an outpatient basis and had x-ray which confirmed osteomyelitis, patient was directly admitted for further evaluation and management. Patient reports for previous episodes of osteomyelitis on the left foot, has not had previous amputations. Patient reports he typically requires 6 weeks of IV antibiotics and hyperbaric treat ments. Will admit for further evaluation and management. Hospital Course: Patient admitted for left foot osteomyelitis With failed antibiotic therapy as outpatient. He was evaluated by Infectious Disease recommended hyperbaric chamber as well as continue IV antibiotics with cipro/cefepime until 09/29. Patient has been accepted to [facility]. Will be discharged home today to continue follow up with Dr. Ryan there Vital Signs/Physical Exam: Temp Pulse Resp BP Pulse Ox 97.4 F 64 18 166/99 H 99 08/25/20 16:00 08/25/20 16:00 08/25/20 16:00 08/25/20 12:00 08/25/20 16:00 Laboratory Data at Discharge: WBC 6.80 K/uL (4.3-10.9) 08/22/20 05:55 Hgb 12.0 g/dL (13.6-17.9) L 08/22/20 05:55 Hct 35.4 % (39.6-49.0) L 08/22/20 05:55 Plt Count 311 K/uL (152-406) 08/22/20 05:55 Sodium 139 mmol/L (136-145) 08/22/20 05:55 Potassium 4.0 mmol/L (3.5-5.1) 08/22/20 05:55 BUN 18 mg/dL (7-18) 08/22/20 05:55 Creatinine 0.66 mg/dL (0.55-1.3) 08/22/20 05:55 Glucose 123 mg/dL (74-106) H 08/22/20 05:55 Magnesium 1.9 mg/dL (1.8-2.4) 08/22/20 05:21 Total Bilirubin 0.2 mg/dL (0.2-1.0) 08/22/20 05:55 AST 11 U/L (15-37) L 08/22/20 05:55 ALT 18 U/L (12-78) 08/22/20 05:55 Alkaline Phosphatase 74 U/L (45-117) 08/22/20 05:55 Home Medications: Metformin HCl 1,000 mg PO BID 08/04/18 Atorvastatin Calcium [Lipitor*] 20 mg PO DAILY 07/24/19 Dapagliflozin Propanediol [Farxiga] 10 mg PO DAILY 07/24/19 Insulin Glargine/Lixisenatide [Soliqua 100 Unit-33 Mcg/ml Pen] 18 units SQ DAILY 07/24/19 L.acidoph,Paracasei, B.lactis [Probiotic] 1 each PO DAILY 07/24/19 Cyclobenzaprine [Flexeril*] 10 mg PO TIDP PRN tab 08/25/20 Hydrocodone 5/APAP 325 [[place] 5/325*] 1 tab PO Q6H PRN tab 08/25/20 Insulin -Regular Human [Novolin -R*] See Protocol SQ ACHS ml 08/25/20 Medihoney [Medihoney Woundcare Gel*] 1 appl TOP TuThSa@0900 tube 08/25/20 Ondansetron [Zofran*] 4 mg IV Q6HP PRN vial 08/25/20 Pharmacy Consult 1 ea XX DAILYPRN PRN each 08/25/20 Pharmacy Consult 1 ea XX DAILYPRN PRN each 08/25/20 Polyethyl Gly 3350 [Glycolax*] 17 gm PO DAILY PRN udbot 08/25/20 Rivaroxaban [Xarelto*] 10 mg PO DAILY tablet 08/25/20 Diet: ADA Activity: Weight bearing as tolerated
[2020-08-25] MEDS ORDERED: HYDRALAZINE HCL 20 MG/ML VIAL IV ONE (20:17)
[2020-08-25] MEDS ORDERED: HYDRALAZINE HCL 20 MG/ML VIAL ONE (20:41)
[2020-08-25 21:33] VITALS: BP 140/76; TEMP 97.7
[2020-08-26 00:19] VITALS: O2SAT 97
== END 2020-08-25 23:10 | DRG 638 ==
LOC: 2ND 15:50
PROVIDERS: ADMIT Hospitalist; ATTEND Internal Medicine
PROC: 02HV33Z Insertion of Infusion Device into Superior Vena Cava, Percutaneous Approach (ICD-10-PCS; principal; 2020-08-18)
DX: E11.69 Type 2 diabetes mellitus with other specified complication (principal); M86.8X7 Other osteomyelitis, ankle and foot; E11.65 Type 2 diabetes mellitus with hyperglycemia; E11.621 Type 2 diabetes mellitus with foot ulcer; L97.529 Non-pressure chronic ulcer of other part of left foot with unspecified severity; E78.5 Hyperlipidemia, unspecified; K59.00 Constipation, unspecified; D50.9 Iron deficiency anemia, unspecified; M54.5 Low back pain; B96.5 Pseudomonas (aeruginosa) (mallei) (pseudomallei) as the cause of diseases classified elsewhere; Z79.4 Long term (current) use of insulin; Z79.01 Long term (current) use of anticoagulants; Z79.899 Other long term (current) drug therapy; Z20.822 Contact with and (suspected) exposure to COVID-19
CPT/HCPCS: 36415; 36569; 71045; 74018; 80048; 80053; 80202; 81003; 82728; 82947; 83036; 83540; 83735; 84145; 84466; 85025; 85652; 86140; 87040; 87070; 87077; 87186; 87205; 97161; 99251; J0360; J0692; J0744; J1650; J2185; J3370; J7040; J7050; U0003

== ENCOUNTER 2020-10-11 23:17 | Observation (INO) | payer BC ==
--- OUTSIDE RECORDS SUMMARY | 2020-10-11 23:20 | XMS REPORT | Continuity of Care Document ---
:1965 Author Organization [facility] t Address [address] [place] [address] Care Team Providers Name Role Phone Provider Primary Care Physician Unavailable Jem Darling DO Attending Clinician Doctor Unassigned, Name Attending Clinician Unavailable Nasreen MCCALLUM Attending Clinician Clare MCCALLUM, Fauzia Attending Clinician [phone] Payers Payer Name Policy Type Policy Number Effective Date Expiration Date S ource [id number] 2014 [place] CHOICE 00:00:00 [employer] PPO/FEDERAL EMPL [id number]-Pres entPPO Problems This patient has no known problems. Allergies, Adverse Reactions, Alerts This patient has no known allergies or adverse reactions. Family History Family Member Diagnosis Comments Start Date Stop Date Source Natural mother Stroke [facility] Social History Social Habit Start Date Stop Date Quantity Comments Source Tobacco use and 2017-05-02 2017-05-02 Never used [facility] exposure 00:00:00 00:00:00 Alcohol intake 2017-05-02 2017-05-02 Current drinker [place] [facility] 00:00:00 00:00:00 of alcohol (finding) Sex [birth year] [facility] 00:00:00 00:00:00 Smoking Status Start Date Stop Date Source Never smoker [place] [facility] t Medications Ordered Filled Start Stop [...] Planned Date Details Comments Source Future Scheduled 2020-12-18 INFLUENZA VACCINE [place] [facility] 00:00:00 [code = INFLUENZA VACCINE] Future Scheduled 2014-01-09 COLONOSCOPY SCREENING [place] [facility] 00:00:00 [code = COLONOSCOPY SCREENING] Future Scheduled 2014-01-09 SHINGLES VACCINES [place] [facility] 00:00:00 (#1) [code = SHINGLES VACCINES (#1)] Future Scheduled 1976 COVID-19 VACCINE (1) [place] [facility] 00:00:00 [code = COVID-19 VACCINE (1)] Encounters Start End Encounter Admission Attending Care Care Encounter Source Date/Time Date/Time Type Type Clinicians Facility Department ID 2020-07-30 2020-07-30 Patient [place] Darling [id number] 00:00:00 00:00:00 Outreach Emil [facility] [id number] [facility] [id number] [place] [id number] 2020-04-07 2020-04-07 Orders Doctor ROB [id number] 00:00:00 00:00:00 Only Unassigned, BHANU [id number] [place] [facility] [id number] 2020-03-24 2020-03-24 Office [place] Downey [id number] 13:31:05 13:59:57 Visit Jakub Mariscal [id number] [place] [id number] [place] [id number] [address] 2020-03-24 2020-03-24 Patient [place] Downey [id number] 00:00:00 00:00:00 [place] [employer] [id number] Cancer [id number] [facility] [id number] [facility] 204 Results This patient has no known results.
[2020-10-12] MEDS ORDERED: MORPHINE 4 MG/ML SYR ONE ×2 (00:16→01:58)
[2020-10-12] MEDS ORDERED: ONDANSETRON 4 MG/2 ML VIAL ONE ×2 (00:16→07:29)
[2020-10-12 00:41] LABS: Absolute Lymphocytes (CBC) 0.7 K/uL (0.7-4.9); Basophils % 0.3 % (0-1.3); Hematocrit 36.2 % (39.6-49.0); Lymphocytes % 6.8 % (15.3-44.8); MPV 7.7 fL (7.6-11.3); RBC Red Blood Cell Count 4.57 M/uL (4.33-5.43)
[2020-10-12 00:42] LABS: Protime INR 1.27
[2020-10-12 00:45] LABS: ALT/SGPT 15 U/L (12-78); AST/SGOT 7 U/L (15-37); Albumin 3.2 g/dL (3.4-5.0); Alkaline Phosphatase 84 U/L (45-117); BUN Blood Urea Nitrogen 18 mg/dL (7-18); Bicarbonate 24 mmol/L (21-32); Bilirubin Direct 0.2 mg/dL (0-0.2); Bilirubin Total 0.7 mg/dL (0.2-1.0); Glucose Level 182 mg/dL (74-106); Protein, Total 7.9 g/dL (6.4-8.2); Sodium Level 137 mmol/L (136-145)
--- NOTE | 2020-10-12 01:24 | ER ---
Nurse's Notes [facility] Name: Zeke Mackay Sr Age: 55 yrs Sex: Male : 1965 Arrival Date: 10/11/2020 Time: 23:20 Bed 16 Private MD: Hazel Mcbride Z Diagnosis: Osteomyelitis, unspecified Presentation: 10/11 23:27 Chief complaint: Patient states: wound problem to L foot. + fever/chills. Coronavirus ak2 screen: Client denies travel out of the [place] in the last 14 days. Ebola Screen: Patient negative for fever greater than or equal to 101.5 degrees Fahrenheit, and additional compatible Ebola Virus Disease symptoms Patient denies exposure to infectious person. Patient denies travel to an Ebola-affected area in the 21 days before illness onset. No symptoms or risks identified at this time. Initial Sepsis Screen: Does the patient meet any 2 criteria? No. Patient's initial sepsis screen is negative. Does the patient have a suspected source of infection? Yes: Skin breakdown/wound. Risk Assessment: Do you want to hurt yourself or someone else? Patient reports no desire to harm self or others. Onset of symptoms was October 11, 2020. 23:27 Method Of Arrival: Ambulatory ak2 23:27 Acuity: RICKEY 3 ak2 Triage Assessment: 23:30 General: Appears in no apparent distress. Behavior is calm, cooperative. Pain: ak2 Complains of pain in left foot. 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 - Social history:: Smoking status: unknown. Screenin/25 23:30 Abuse screen: Denies threats or abuse. Denies injuries from another. Nutritional ak2 screening: No deficits noted. Tuberculosis screening: No symptoms or risk factors identified. Fall Risk None identified. Assessment: 23:35 General: Appears in no apparent distress. uncomfortable, Behavior is calm, cooperative, rr5 appropriate for age. Pain: Complains of pain in left foot Pain currently is 8 out of 10 on a pain scale. Quality of pain is described as aching, Pain began gradually, Is intermittent. Neuro: Level of Consciousness is awake, alert, obeys commands, Oriented to person, place, time. Cardiovascular: Capillary refill < 3 seconds Patient's skin is warm and dry. Respiratory: Airway is patent Respiratory effort is even, unlabored, Respiratory pattern is regular, symmetrical. Derm: Skin is intact, Skin temperature is warm Decubitus located on left foot approximately 1.5 cm to 2.5 cm. Musculoskeletal: Capillary refill < 3 seconds. 10/12 06:12 Reassessment: Patient and/or family updated on plan of care and expected duration. Pain ea level reassessed. Pt resting with eyes closed, respirations even and unlabored. Chest expansions even and symmetrical. No s/s of pain or discomfort noted at this time. Vital Signs: 10/11 23:27 BP 141 / 79; Pulse 87; Resp 18; Temp 99.2; Pulse Ox 99% ; Weight 93.44 kg; Height 6 ft. ak2 2 in. (187.96 cm); 10/12 02:38 BP 146 / 69; Pulse 82; Resp 20; Pulse Ox 95% on R/A; rr5 06:13 BP 133 / 81; Pulse 80; Resp 18; Pulse Ox 97% ; ea 07:12 BP 152 / 76; Pulse 84; Resp 20; Pulse Ox 100% on R/A; kg 07:16 Temp 98.9(O); kg 10/11 23:27 Body Mass Index 26.45 (93.44 kg, 187.96 cm) ak2 ED Course: 10/11 23:20 Patient arrived in ED. es 23:21 Hazel Mcbride MD is Private Physician. es 23:24 Eliceo Jolley, ARTURO is Primary Nurse. rr5 23:28 Rashi Miranda PA is PHCP. cp 23:28 Gillian Macias MD is Attending Physician. cp 23:29 Triage completed. ak2 23:30 Patient has correct armband on for positive identification. ak2 23:30 No provider procedures requiring assistance completed. 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 23:35 Pulse ox on. NIBP on. rr5 10/12 00:24 XRAY Foot LEFT 3 View In Process Unspecified. EDMS 01:22 You Carson FNP-C is Hospitalizing Provider. cp 01:24 Av Miranda DO is Hospitalizing Provider. la1 02:42 Patient admitted, IV remains in place. ea 07:37 Report given to Report called Cm MORRISsystems integration advisor. kg Administered Medications: 00:18 Drug: morphine 4 mg Route: IVP; Site: right antecubital; rr5 01:00 Follow up: Response: No adverse reaction ea 00:18 Drug: Zofran (Ondansetron) 4 mg Route: IVP; Site: right antecubital; rr5 02:41 Follow up: Response: No adverse reaction ea 01:35 Drug: LevaQUIN (levofloxacin) 750 mg Volume: 150 ml; Route: IVPB; Infused Over: 90 rr5 mins; Site: right antecubital; 03:10 Follow up: Response: No adverse reaction; IV Status: Completed infusion ea 01:41 Drug: morphine 4 mg Route: IVP; Site: right antecubital; ea 02:41 Follow up: Response: No adverse reaction; Pain is decreased; RASS: Alert and Calm (0) ea 03:10 Drug: vancoMYCIN 1 grams Route: IVPB; Infused Over: 2 hrs; Site: right antecubital; ea 03:11 Follow up: IV Status: Infusion continued upon admission ea Output: 07:20 Urine: 550ml (Voided); Total: 550ml. kg Outcome: 01:23 Decision to Hospitalize by Provider. cp 02:42 Admitted to ER Hold. Please see [facility] for further documentation. ea 02:42 Condition: stable 02:42 Instructed on the need for admit, Demonstrated understanding of instructions. 08:25 Patient left the ED. kg Signatures: Dispatcher [employer] Daina Khan Lee, HOP FARM WORKER-C HOP FARM WORKER-Cla1 Rashi Miranda PA PA cp Antunez, Elena RN RN Eliceo Che RN RN rr5 Kisha Chang kg Jaden Fields2
--- NOTE | 2020-10-12 01:24 | EDPHYS ---
Physician Documentation [facility] Name: Zeke Mackay Sr Age: 55 yrs Sex: Male : 1965 Arrival Date: 10/11/2020 Time: 23:20 Bed 16 Private MD: Hazel Mcbride Z ED Physician Gillian Macias HPI: 10/11 23:40 This 55 yrs old Male presents to ER via Ambulatory with complaints of cp Infected foot, Fever. 23:40 The patient presents with pain, tenderness. The complaints affect the left foot. cp 23:40 Context: history of pressure ulcer of left great toe. cp 23:40 Associated signs and symptoms: Pertinent positives: fever, increased pain of left foot. 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 - Social history:: Smoking status: unknown. ROS: 10/11 23:45 Eyes: Negative for injury, pain, redness, and discharge. cp Constitutional: Positive for chills, Negative for fever, poor PO intake. 23:45 Cardiovascular: Negative for chest pain. cp 23:45 Respiratory: Negative for cough, shortness of breath, wheezing. 23:45 Abdomen/GI: Negative for abdominal pain, nausea, vomiting, and diarrhea. 23:45 MS/extremity: Positive for pain, tenderness, of the left foot. 23:45 Neuro: Negative for altered mental status, headache, weakness. cp 23:45 All other systems are negative. Exam: 23:50 Constitutional: The patient appears in no acute distress, alert, awake, cp non-diaphoretic, non-toxic, well developed, well nourished. 23:50 Head/Face: Normocephalic, atraumatic. cp 23:50 Eyes: Periorbital structures: appear normal, Conjunctiva: normal, no exudate, no injection, Sclera: no appreciated abnormality, Lids and lashes: appear normal, bilaterally. 23:50 ENT: External ear(s): are unremarkable, Nose: is normal, Posterior pharynx: Airway: no evidence of obstruction, patent. 23:50 Chest/axilla: Inspection: normal, Palpation: is normal, no crepitus, no tenderness. 23:50 Cardiovascular: Rate: normal, Rhythm: regular, Edema: is not appreciated, JVD: is not appreciated. 23:50 Respiratory: the patient does not display signs of respiratory distress, Respirations: normal, no use of accessory muscles, no retractions, labored breathing, is not present, Breath sounds: are clear throughout, no decreased breath sounds. 23:50 Abdomen/GI: Exam negative for discomfort, distension, guarding, Inspection: abdomen appears normal. 23:50 Musculoskeletal/extremity: Extremities: noted in the left foot: erythema, pain, swelling, quarter size pressure ulcer noted plantar surface of left great toe, Pulses: noted to be 1+ in the left dorsalis pedis artery. 23:50 Neuro: Orientation: to person, place \\T\\ time. Mentation: is normal. 10/12 00:14 ECG was reviewed by the Attending Physician. Vital Signs: 10/11 23:27 BP 141 / 79; Pulse 87; Resp 18; Temp 99.2; Pulse Ox 99% ; Weight 93.44 kg; Height 6 ft. ak2 2 in. (187.96 cm); 10/12 02:38 BP 146 / 69; Pulse 82; Resp 20; Pulse Ox 95% on R/A; rr5 06:13 BP 133 / 81; Pulse 80; Resp 18; Pulse Ox 97% ; ea 07:12 BP 152 / 76; Pulse 84; Resp 20; Pulse Ox 100% on R/A; kg 07:16 Temp 98.9(O); kg 10/11 23:27 Body Mass Index 26.45 (93.44 kg, 187.96 cm) ak2 MDM: 10/11 23:33 Patient medically screened. 10/12 01:25 Data reviewed: vital signs, nurses notes, lab test result(s), EKG, radiologic studies, cp plain films. 01:25 Test interpretation: by ED physician or midlevel provider: ECG. 10/11 23:57 Order name: Wound Culture 10/11 23:57 Order name: Lactate; Complete Time: 01:17 10/11 23:57 Order name: Blood Culture Adult (2) 10/11 23:57 Order name: Basic Metabolic Panel 10/12 01:20 Interpretation: Normal except: GLUC 182. 10/11 23:57 Order name: CBC with Diff; Complete Time: 00:50 10/12 01:17 Interpretation: Normal except: WBC 11.00; HGB 11.6; HCT 36.2; MCV 79.2; MCH 25.4; SHERRELL% cp 82.7; LYM% 6.8; NEUT A 9.1. 10/11 23:57 Order name: LFT's 10/11 23:57 Order name: Protime (+inr); Complete Time: 01:17 10/11 23:57 Order name: Ptt, Activated; Complete Time: 01:17 cp 10/11 23:58 Order name: Wound Culture [facility] 10/12 01:16 Order name: ESR la1 10/12 01:19 Order name: C-Reactive Protein [facility] 10/11 23:57 Order name: XRAY Foot LEFT 3 View 10/11 23:57 Order name: Cardiac monitoring; Complete Time: 00:13 10/11 23:57 Order name: EKG - Nurse/Tech; Complete Time: 00:13 10/11 23:57 Order name: IV Saline Lock - Large Bore; Complete Time: 00:13 10/11 23:57 Order name: Labs collected and sent; Complete Time: 00:13 10/11 23:57 Order name: O2 Per Protocol; Complete Time: 00:13 10/12 01:26 Order name: Procalcitonin [facility] 10/12 02:22 Order name: COVID-19 : Document "Date of Symptom Onset" if Symptomatic. ea 10/12 02:36 Order name: CORONAVIRUS [facility] 10/12 03:17 Order name: SARS-COV-2 RT PCR [facility] 10/11 23:57 Order name: O2 Sat Monitoring; Complete Time: 00:13 cp EC:14 Rate is 84 beats/min. Rhythm is regular. OK interval is normal. QRS interval is normal. cp QT interval is normal. Interpreted by me. Reviewed by me. Administered Medications: 00:18 Drug: morphine 4 mg Route: IVP; Site: right antecubital; rr5 01:00 Follow up: Response: No adverse reaction ea 00:18 Drug: Zofran (Ondansetron) 4 mg Route: IVP; Site: right antecubital; rr5 02:41 Follow up: Response: No adverse reaction ea 01:35 Drug: LevaQUIN (levofloxacin) 750 mg Volume: 150 ml; Route: IVPB; Infused Over: 90 rr5 mins; Site: right antecubital; 03:10 Follow up: Response: No adverse reaction; IV Status: Completed infusion ea 01:41 Drug: morphine 4 mg Route: IVP; Site: right antecubital; ea 02:41 Follow up: Response: No adverse reaction; Pain is decreased; RASS: Alert and Calm (0) ea 03:10 Drug: vancoMYCIN 1 grams Route: IVPB; Infused Over: 2 hrs; Site: right antecubital; ea 03:11 Follow up: IV Status: Infusion continued upon admission ea Disposition: 10/12/20 01:23 Hospitalization ordered by Av Miranda for Inpatient Admission. Preliminary diagnosis is Osteomyelitis, unspecified. - Bed requested for Telemetry/MedSurg (Inpatient). - Status is Inpatient Admission. kg - Condition is Stable. - Problem is an ongoing problem. - Symptoms have improved. Signatures: Dispatcher [employer] EDAZ Sirena Hopper RN RN mw Williams, Irene, RN RN iw Attema, Lee, ORE MIXER-C ORE MIXER-Cla1 Rashi Miranda PA PA cp Joana Rivera RN RN ea Roque, Raymond RN RN rr5 Kisha Chang kg, Anthony ak2 Corrections: (The following items were deleted from the chart) 01:19 01:17 C-REACTIVE PROTEIN+C.LAB.BRZ ordered. EDAZ EDMS 01:24 01:23 Hospitalization Ordered by oYu HANNON-C for Inpatient Admission. Preliminary la1 diagnosis is Osteomyelitis, unspecified. Bed requested for Telemetry/MedSurg (Inpatient). Status is Inpatient Admission. Condition is Stable. Problem is an ongoing problem. Symptoms have improved. cp 02:37 01:24 10/12/2020 01:23 Hospitalization Ordered by Av Miranda DO for Inpatient Admission. Preliminary diagnosis is Osteomyelitis, unspecified. Bed requested for Telemetry/MedSurg (Inpatient). Status is Inpatient Admission. Condition is Stable. Problem is an ongoing problem. Symptoms have improved. la1 04:28 02:37 10/12/2020 01:23 Hospitalization Ordered by Av Miranda DO for Inpatient mw Admission. Preliminary diagnosis is Osteomyelitis, unspecified. Bed requested for [facility] ER HOLD. Status is Inpatient Admission. Condition is Stable. Problem is an ongoing problem. Symptoms have improved. iw 08:25 04:28 10/12/2020 01:23 Hospitalization Ordered by Av Miranda DO for Inpatient kg Admission. Preliminary diagnosis is Osteomyelitis, unspecified. Bed requested for Telemetry/MedSurg (Inpatient). Status is Inpatient Admission. Condition is Stable. Problem is an ongoing problem. Symptoms have improved. mw
[2020-10-12] MEDS ORDERED: VANCOMYCIN 1 GM/VIAL ONE (01:45)
[2020-10-12] MEDS ORDERED: NA CHLORIDE 0.9% 250 ML ONE (01:45)
[2020-10-12] MEDS ORDERED: Levofloxacin 750mg IV 750 MG/150 ML BAG IV ONE (01:45)
--- NOTE | 2020-10-12 02:24 | P.HP ---
Certification for Inpatient Patient admitted to: Inpatient With expected LOS: >2 Midnights Patient will require the following post-hospital care: None Practitioner: I am a practitioner with admitting privileges, knowledge of patient current condition, hospital course, and medical plan of care. Services: Services provided to patient in accordance with Admission requirements found in Title 42 Section 412.3 of the Code of Federal Regulations Patient History Date of Service: 10/12/20 Primary Care Provider: Dr. marrero, Dr. Ryan Reason for admission: Osteomyelitis, cellulitis History of Present Illness: 55-year-old male with history of diabetes mellitus type 2, hypertension, hyperlipidemia, atrial fibrillation on chronic anticoagulation therapy presents emergency department for chills, malaise, cellulitis of the left lower extremity. Patient with ongoing treatment for osteomyelitis, multiple admissions both an acute care and long-term acute care settings. Patient was recently without his IV antibiotics over the course of the last 2 weeks due to his PICC line being dislodged, patient had PICC line replaced yesterday, currently on IV Zosyn 3.375 q. 8 and doxycycline 100 mg p.o. b.i.d. based on Infectious Disease recommendations reported to be based on patient's cultures. Patient evaluated in the emergency department, labs significant for white blood cell count 11, hemoglobin 9.6 hematocrit 36.2 MCV 79.2 ESR 58 glucose 182 C-reactive protein 136 pro calcitonin level pending. X-ray left foot demonstrates likely osteomyelitis, pending official read. ED provider wishes to admit for further evaluation and management. Allergies No Known Allergies Allergy (Verified 08/17/20 20:54) Home Medications: Metformin HCl 1,000 mg PO BID 08/04/18 Atorvastatin Calcium [Lipitor*] 20 mg PO DAILY 07/24/19 Dapagliflozin Propanediol [Farxiga] 10 mg PO DAILY 07/24/19 Insulin Glargine/Lixisenatide [Soliqua 100 Unit-33 Mcg/ml Pen] 18 units SQ DAILY 07/24/19 L.acidoph,Paracasei, B.lactis [Probiotic] 1 each PO DAILY 07/24/19 Cyclobenzaprine [Flexeril*] 10 mg PO TIDP PRN tab 08/25/20 Hydrocodone 5/APAP 325 [Raymond 5/325*] 1 tab PO Q6H PRN tab 08/25/20 Insulin -Regular Human [Novolin -R*] See Protocol SQ ACHS ml 08/25/20 Medihoney [Medihoney Woundcare Gel*] 1 appl TOP TuThSa@0900 tube 08/25/20 Ondansetron [Zofran*] 4 mg IV Q6HP PRN vial 08/25/20 Pharmacy Consult 1 ea XX DAILYPRN PRN each 08/25/20 Pharmacy Consult 1 ea XX DAILYPRN PRN each 08/25/20 Polyethyl Gly 3350 [Glycolax*] 17 gm PO DAILY PRN udbot 08/25/20 Rivaroxaban [Xarelto*] 10 mg PO DAILY tablet 08/25/20 - Past Medical/Surgical History Diabetic: Yes -: Neuropathy -: Diabetes -: Hyperlipidemia -: Osteomyelitis -: AFib on anticoagulation -: lap appy -: L wrist fx repair -: R hand fx repair -: c3-6 fused Psychosocial/ Personal History: Patient is retired, lives with his and children - Family History Father -: Diabetes, Other (see notes) Notes: Stroke - Social History Smoking Status: Never smoker Alcohol use: No CD- Drugs: No Caffeine use: Yes Place of Residence: Home Review of Systems 10-point ROS is otherwise unremarkable General: Chills, Malaise Musculoskeletal: Foot Pain Integumentary: Rash, As per HPI Physical Examination - Physical Exam General: Alert, In no apparent distress, Oriented x3 HEENT: Atraumatic, PERRLA, Mucous membr. moist/pink, EOMI Neck: Supple, 2+ carotid pulse no bruit, No LAD Respiratory: Clear to auscultation bilaterally, Normal air movement Cardiovascular: Regular rate/rhythm, Normal S1 S2 Gastrointestinal: Normal bowel sounds, No tenderness Musculoskeletal: Erythema, Tenderness, Warmth Integumentary: No rashes, Diabetic ulcer (Pedal aspect of left foot at the distal aspect of the 1st metatarsal with surrounding cellulitis) Neurological: Normal speech, Normal strength at 5/5 x4 extr, Normal tone, Normal affect - Studies Laboratory Data (last 24 hrs) 10/12/20 00:15: PT 14.6 H, INR 1.27, APTT 31.1 10/12/20 00:15: WBC 11.00 H, Hgb 11.6 L, Hct 36.2 L, Plt Count 330 10/12/20 00:15: Sodium 137, Potassium 4.0, BUN 18, Creatinine 0.85, Glucose 182 H, Total Bilirubin 0.7, AST 7 L, ALT 15, Alkaline Phosphatase 84 Assessment and Plan - Plan Assessment Acute on chronic Osteomyelitis left distal metatarsal failed outpatient therapy Atrial fibrillation on chronic anticoagulation therapy Diabetes mellitus type 2 Hypertension Hyperlipidemia Plan Acute on chronic Osteomyelitis left distal metatarsal failed outpatient therapy: Patient with multiple rounds of IV therapy, admission at acute care and long- term acute care facilities with recurrent osteomyelitis. Patient recently was without his PICC line for approximately 2 weeks after became dislodged and he missed his appointment for re insertion during that time patient was on oral a ntibiotics only. Patient received IV therapy with Zosyn 3.375 q. 8 and doxycycline 100 mg p.o. b.i.d. yesterday, patient now with constitutional symptoms, chills, leukocytosis and surrounding cellulitis around his diabetic ulcer. Will continue with vancomycin IV, Zosyn, Infectious Disease consult, strict glycemic control. Will obtain MRI to further evaluate extent of osteomyelitis. DVT prophylaxis continue Xarelto. Atrial fibrillation on chronic anticoagulation therapy: Continue Xarelto, other home medications. Diabetes mellitus type 2: A.c. HS Accu-Cheks scale insulin therapy. Hypertension: Continue home medications. Hyperlipidemia: Continue home medications. Discharge Plan: Home Plan to discharge in: Greater than 2 days - Advance Directives Does patient have a Living Will: No Does patient have a Durable POA for Healthcare: No - Code Status/Comfort Care Code Status Assessed: Yes (Full code) Critical Care: No Time Spent Managing Pts Care (In Minutes): 55
[2020-10-12] MEDS ORDERED: ONDANSETRON 4 MG/2 ML VIAL IV PRN (04:01)
[2020-10-12] MEDS ORDERED: VANCOMYCIN/NS 1 gm 1 GM/250 ML BAG IVPB SCH (04:01)
[2020-10-12] MEDS ORDERED: ACETAMINOPHEN 500 MG TAB PO PRN (04:01)
[2020-10-12] MEDS ORDERED: HYDROCODONE/APAP 5/325 MG TAB PO PRN (04:01)
[2020-10-12] MEDS: INSULIN -REGULAR HUMAN 50 UNIT/0.5 ML ML SQ SCH ×3 (07:30→16:30)
[2020-10-12] MEDS ORDERED: RIVAROXABAN 10 MG TABLET PO SCH (09:00)
[2020-10-12] MEDS ORDERED: VANCOMYCIN 1.75 GM in NA CHLORIDE 0.9% 500 ML IVPB SCH (09:00)
[2020-10-12] MEDS ORDERED: LOSARTAN POTASSIUM 50 MG TABLET PO SCH (09:00)
[2020-10-12] MEDS ORDERED: PIPER/TAZO/NS 3.375gm 3.375 GM/100 ML BAG IVPB SCH (09:00)
--- NOTE | 2020-10-12 09:05 | P.PN ---
Subjective Date of Service: 10/12/20 Primary Care Provider: Dr. Mcbride, Infectious disease-Dr. Ryan Chief Complaint: Osteomyelitis, cellulitis Subjective: Doing well Physical Examination - Vital Signs Temperature: 98.9 F Blood Pressure: 152/76 Pulse: 84 Respirations: 20 Pulse Ox (%): 99 - Studies Laboratory Data (last 24 hrs) 10/12/20 00:15: PT 14.6 H, INR 1.27, APTT 31.1 10/12/20 00:15: WBC 11.00 H, Hgb 11.6 L, Hct 36.2 L, Plt Count 330 10/12/20 00:15: Sodium 137, Potassium 4.0, BUN 18, Creatinine 0.85, Glucose 182 H, Total Bilirubin 0.7, AST 7 L, ALT 15, Alkaline Phosphatase 84 Microbiology Data (last 24 hrs): 10/12/20 00:05 Wound - Left Foot Gram Stain - Final Assessment & Plan Discharge Plan: LTAC Plan to discharge in: 24 Hours Physician Review Additional Text: Physical Exam: GENERAL: The patient is a well-developed, well-nourished, in no apparent distress. Alert and oriented x3. VITAL SIGNS: Reviewed HEENT: Neck supple. NECK: Supple. No carotid bruits. No lymphadenopathy or thyromegaly. LUNGS: Clear to auscultation. No crackles or wheezes are heard. HEART: Regular rate and rhythm, no appreciable gallops, rubs, murmurs or extra heart sounds ABDOMEN: Soft, nontender, and nondistended. Positive bowel sounds. No hepatosplenomegaly was noted. EXTREMITIES: There is a ulcer to the left distal metatarsal region. Mild swelling noted compared to right. No significant erythema. NEUROLOGIC: The patient is oriented to person, place and time. Strength and sensation are grossly intact. Face is symmetric. SKIN: As above Impression: Acute on chronic Osteomyelitis of the left distal metatarsal failed outpatient therapy Atrial fibrillation on chronic anticoagulation therapy Diabetes mellitus type 2 insulin-dependent Hypertension Hyperlipidemia Plan Acute on chronic Osteomyelitis of the left distal metatarsal failed outpatient therapy: Continue IV antibiotic therapyvancomycin and Zosyn. Provide medication for pain. Patient has been in and out of the hospital including long-term acute care facility. He was also getting hyperbaric treatment. Most recently patient was without IV antibiotic therapy due to dysfunctional PICC line. Infectious disease consulted. Await recommendations. Patient desires to go back to long-term acute care facility to continue treatment. This may be beneficial especially since patient had been improving with aggressive wound care, IV antibiotic therapy and hyperbarics daily. Will consult social contact worker to help with this. Will discuss further with infectious disease. Atrial fibrillation on chronic anticoagulation therapy: Continue Xarelto. Diabetes mellitus type 2 insulin-dependent: We will start Lantus. Accu-Cheks in place. Will check most recent A1c. Hypertension: Continue home medications. Hyperlipidemia: Continue home medications. Code Status: Full Code DVT prophylaxis: Patient on Xarelto Advanced Care Planning-30 minutes: Patient desires to go to long-term acute care facility Time Spent Managing Pts Care (In Minutes): 55
--- NOTE | 2020-10-12 09:45 | RAD REPORT ---
EXAM DESCRIPTION: RAD - Foot Left 3 View - 10/12/2020 12:24 am CLINICAL HISTORY: PAIN COMPARISON: Foot Left 3 View dated 07/23/2019; Foot Left 3 View dated 07/22/2018 FINDINGS: Soft tissue ulceration is seen along the plantar aspect of the forefoot. Mild soft tissue swelling is seen along the dorsum of the forefoot. Irregularity of the proximal phalanx of the great toe is seen with generally chronic appearance. No definitive radiographic evidence of osteomyelitis. Mild vascular calcification. Large plantar calcaneal spur.
[2020-10-12] MEDS ORDERED: VANCOMYCIN 1.5 GM in NA CHLORIDE 0.9% 500 ML IVPB SCH (10:00)
[2020-10-12 10:20] VITALS: BMI 26.9
--- NOTE | 2020-10-12 10:32 | P.CNS ---
Date of Consult: 10/12/20 Primary Care Provider: Dr. Mcbride, Infectious disease-Dr. Ryan Chief Complaint: Osteomyelitis, cellulitis History of Present Illness: Patient is a 55-year-old male with a past medical history is a diabetes mellitus type 2 uncontrolled, hypertension, hyperlipidemia, a fib f on chronic anticoagulation therapy, and recurrent left foot osteomyelitis who is well-known to Dr. Ryan and I who presented to the emergency part department due to chills, malaise, cellulitis of left lower extremity. He has been on antibiotics since 08/18 for treatment of left foot osteomyelitis. Patient states that for the past 2 weeks he has not received his antibiotics due to an issue with his PICC line. PICC line was replaced on 10/11 and patient has been started on vancomycin and Zosyn. Patient are slow received 1 dose of Levaquin in the ED. Prior to hospitalization patient was on IV Zosyn and doxycycline. Previous wound cultures grew Pseudomonas aeruginosa. Wound cultures for this admission pending. Left foot x-ray showed signs of osteomyelitis, awaiting left foot MRI. Patient denies nausea, vomiting, diarrhea, shortness breath, chest pain. 10 point ROS has been performed and pertinent positives and negatives listed above. Allergies No Known Allergies Allergy (Verified 08/17/20 20:54) Home Medications: Metformin HCl 1,000 mg PO BID 08/04/18 Atorvastatin Calcium [Lipitor*] 20 mg PO DAILY 07/24/19 Dapagliflozin Propanediol [Farxiga] 10 mg PO DAILY 07/24/19 Insulin Glargine/Lixisenatide [Soliqua 100 Unit-33 Mcg/ml Pen] 18 units SQ DAILY 07/24/19 L.acidoph,Paracasei, B.lactis [Probiotic] 1 each PO DAILY 07/24/19 Rivaroxaban [Xarelto*] 10 mg PO DAILY tablet 08/25/20 Ascorbate Calcium [Vitamin C] 500 mg PO DAILY 10/12/20 Losartan Potassium 25 mg PO DAILY 10/12/20 Zinc Sulfate [Zinc Sulfate*] 1 cap PO DAILY 10/12/20 - Past Medical/Surgical History Diabetic: Yes -: Neuropathy -: Diabetes -: Hyperlipidemia -: Osteomyelitis -: AFib on anticoagulation -: lap appy -: L wrist fx repair -: R hand fx repair -: c3-6 fused Psychosocial/ Personal History: Patient is retired, lives with his and children - Family History Father Medical History: Diabetes, Other (see notes) Notes: Stroke - Social History Smoking Status: Unknown if ever smoked Alcohol use: No CD- Drugs: No Caffeine use: Yes Place of Residence: Home Review of Systems 10-point ROS is otherwise unremarkable Physical Examination Temp Pulse Resp BP Pulse Ox 98.9 F 84 19 152/76 H 96 10/12/20 09:05 10/12/20 09:05 10/12/20 09:35 10/12/20 09:05 10/12/20 09:35 General: Alert, In no apparent distress HEENT: Atraumatic, Normocephalic Neck: Supple Respiratory: Clear to auscultation bilaterally, Normal air movement Cardiovascular: No edema, Normal pulses, Regular rate/rhythm, Normal S1 S2 Capillary refill: <2 Seconds Gastrointestinal: Normal bowel sounds, Soft and benign Musculoskeletal: No clubbing, No swelling, No contractures Integumentary: Other (Diabetic ulcer to plantar aspect of left foot 1st metatarsal head. Base of wound shows neck is of slough/granulation tissue. Ale wound tissue clean dry intact no clinical signs of infection. Wound edges are well demarcated.) Laboratory Data (last 24 hrs) 10/12/20 00:15: PT 14.6 H, INR 1.27, APTT 31.1 10/12/20 00:15: WBC 11.00 H, Hgb 11.6 L, Hct 36.2 L, Plt Count 330 10/12/20 00:15: Sodium 137, Potassium 4.0, BUN 18, Creatinine 0.85, Glucose 182 H, Total Bilirubin 0.7, AST 7 L, ALT 15, Alkaline Phosphatase 84 Conclusions/Impression: Antibiotics: Vancomycin Start: 10/12 Stop: -- Zosyn start: 10/12 stop: -- Assessment: -left foot 1st metatarsal head osteomyelitis/cellulitis -anemia -leukocytosis -diabetes mellitus type 2 uncontrolled -protein caloric malnutrition -hyperlipidemia/hypertension Plan: -patient initially started antibiotic treatment on 08/18 for osteomyelitis, patient was to complete his 6 week course of antibiotics on 09/29. . Patient missed the last 2 weeks of his antibiotics due to issues with his PICC line. PICC line replaced on 10/11. Outpatient patient was taking Zosyn and doxycycline. Patient currently on vancomycin and Zosyn. Awaiting a left foot MRI and wound culture. Adjust antibiotics based on wound culture results. Tubal ulcer: Apply Medihoney and cover with foam/Kerlix daily. -continue to monitor duration H -continue monitor WBC continue current antibiotic therapy. Inflammatory markers: Procal within normal limits, CRP elevated at 136. -recommend ordering hemoglobin A1c. The patient has history of uncontrolled diabetes. -recommend supplemental protein drinks--low albumin. -medical management per primary team -continue monitor CBC and BMP -continue monitor for signs infection Plan of care discussed with Dr. Ryan Thank you for consultation.
[2020-10-12 11:25] VITALS: O2SAT 99
--- NOTE | 2020-10-12 11:57 | EKG ---
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 MEASUREMENT RESULTS: Intervals: Rate: 84 IN: 124 QRSD: 82 QT: 354 QTc: 418 [place]: P: -1 IN: 124 QRS: 44 T: 20 INTERPRETIVE STATEMENTS: Sinus rhythm with premature supraventricular complexes Otherwise normal ECG Compared to ECG 07/25/2019 15:30:31 Atrial premature complex(es) now present Electronically Signed On 10-12-20 11:56:51 CDT by Lupillo Crowder
[2020-10-12] MEDS ORDERED: ERTAPENEM SODIUM 1 GM VIAL IVPB SCH (12:00)
[2020-10-12] MEDS ORDERED: HYDROCODONE/APAP 7.5/325 MG TAB PO PRN (12:57)
[2020-10-12] MEDS ORDERED: ERTAPENEM NA 1 GM in NA CHLORIDE 0.9% 100 ML IVPB SCH (13:00)
--- NOTE | 2020-10-12 13:03 | RAD REPORT ---
EXAM DESCRIPTION: MRI - Foot Left Wo Cont - 10/12/2020 11:45 am CLINICAL HISTORY: eval osteo Pain and swelling, possible osteomyelitis with wound affecting the great toe. COMPARISON: Foot Left Wo Cont dated 07/24/2019; Foot Left Wo Cont dated 07/31/2018 FINDINGS: Soft tissue wound is seen involving the great toe near the first MTP joint. There is a karlos rphous soft tissue in this region which extends along the plantar aspect of the forefoot. Abnormal diminished T1 signal and elevated IR signal is present in the first sesamoid bones, particul jorge the medial sesamoid. This is most likely indicative of osteomyelitis. There is deformity the dis garo aspect of the proximal phalanx of the graft great toe which is has a chronic appearance. No evide nce of osteomyelitis elsewhere in the foot. No soft tissue mass or fluid collections. IMPRESSION: Osteomyelitis is suspected involving the first metatarsal sesamoid bones, particularly t he medial sesamoid.
--- NOTE | 2020-10-12 16:23 | P.DS ---
Admission Date: 10/12/20 Discharge Date: 10/12/20 Primary Care Provider: Dr. Mcbride, Infectious disease-Dr. Ryan Disposition: [place] [facility]/HOME HEALTH CARE Discharge Condition: GOOD Reason for Admission: Osteomyelitis, cellulitis Consultations: Infectious disease: Dr. Ryan Procedures: COVID: [Negative] MRI: FINDINGS: Soft tissue wound is seen involving the great toe near the first MTP joint. There is a amorphous soft tissue in this region which extends along the plantar aspect of the forefoot. Abnormal diminished T1 signal and elevated IR signal is present in the first sesamoid bones, particularly the medial sesamoid. This is most likely indicative of osteomyelitis. There is deformity the distal aspect of the proximal phalanx of the graft great toe which is has a chronic appearance. No evidence of osteomyelitis elsewhere in the foot. No soft tissue mass or fluid collections. IMPRESSION: Osteomyelitis is suspected involving the first metatarsal sesamoid bones, particularly the medial sesamoid. Medical Problem List: Acute on chronic Osteomyelitis of the left distal metatarsal failed outpatient therapy Atrial fibrillation on chronic anticoagulation therapy Diabetes mellitus type 2 insulin-dependent Hypertension Hyperlipidemia Brief History of Present Illness: 55-year-old male with history of diabetes mellitus type 2, hypertension, hyperlipidemia, atrial fibrillation on chronic anticoagulation therapy presents emergency department for chills, malaise, cellulitis of the left lower extremity. Patient with ongoing treatment for osteomyelitis, multiple admissions both an acute care and long-term acute care settings. Patient was recently without his IV antibiotics over the course of the last 2 weeks due to his PICC line being dislodged, patient had PICC line replaced yesterday. Patient was evaluated in the emergency room. Patient admitted for further evaluation and treatment. Hospital Course: Patient presented with acute on chronic osteomyelitis of the left distal metatarsal. Patient recently hospitalized and sent to long-term acute care facility to continue IV antibiotic therapy. He had been sent home with a PICC line with continued antibiotic therapy. Most recently this was not working properly. This was eventually repaired. Patient required observation. Infectious disease evaluated patient. Previous wound culture showed cultures positive for Pseudomonas. Case discussed in detail with infectious disease. Infectious disease recommended to continue outpatient IV antibiotic therapy. This was arranged. Patient will continue with IV Invanz 1 g daily for 3 weeks. Patient will continue with current wound care as directed by infectious disease. Recommend to check labBMP every week while on antibiotic therapy. Recommend follow-up with infectious disease within 1 week to follow-up his hospitalization and continue his care. Patient plans to continue with hyperbaric treatment as an outpatient. Recommend follow-up with PCP to further monitor and adjust medication. Patient with other chronic medical problems including atrial fibrillation on chronic anticoagulation therapy, diabetes mellitus type 2 insulin-dependent, hypertension, and hyperlipidemia. At discharge patient will continue with his current medications. Recommend follow-up with his PCP to further monitor and adjust medication. Strict diabetic control will be required. This can be done with the help of his PCP. Vital Signs/Physical Exam: Temp Pulse Resp BP Pulse Ox 97.9 F 83 19 128/66 96 10/12/20 12:00 10/12/20 12:00 10/12/20 14:09 10/12/20 12:00 10/12/20 14:09 General: Alert, In no apparent distress, Oriented x3, Cooperative HEENT: Atraumatic Neck: Supple Respiratory: Clear to auscultation bilaterally, Normal air movement Cardiovascular: Normal pulses, Regular rate/rhythm Gastrointestinal: Normal bowel sounds, Soft and benign, Non-distended, No tenderness, No masses, No rebound, No guarding Musculoskeletal: Other (Ulcer to the distal first metatarsal region on the plantar surface.) Integumentary: Other Neurological: Normal speech, Normal strength at 5/5 x4 extr, Normal tone Laboratory Data at Discharge: WBC 11.00 K/uL (4.3-10.9) H 10/12/20 00:15 Hgb 11.6 g/dL (13.6-17.9) L 10/12/20 00:15 Hct 36.2 % (39.6-49.0) L 10/12/20 00:15 Plt Count 330 K/uL (152-406) 10/12/20 00:15 PT 14.6 SECONDS (9.5-12.5) H 10/12/20 00:15 INR 1.27 10/12/20 00:15 APTT 31.1 SECONDS (24.3-36.9) 10/12/20 00:15 Sodium 137 mmol/L (136-145) 10/12/20 00:15 Potassium 4.0 mmol/L (3.5-5.1) 10/12/20 00:15 BUN 18 mg/dL (7-18) 10/12/20 00:15 Creatinine 0.85 mg/dL (0.55-1.3) 10/12/20 00:15 Glucose 182 mg/dL (74-106) H 10/12/20 00:15 Total Bilirubin 0.7 mg/dL (0.2-1.0) 10/12/20 00:15 AST 7 U/L (15-37) L 10/12/20 00:15 ALT 15 U/L (12-78) 10/12/20 00:15 Alkaline Phosphatase 84 U/L (45-117) 10/12/20 00:15 Home Medications: Metformin HCl 1,000 mg PO BID 08/04/18 Atorvastatin Calcium [Lipitor*] 20 mg PO DAILY 07/24/19 Dapagliflozin Propanediol [Farxiga] 10 mg PO DAILY 07/24/19 Insulin Glargine/Lixisenatide [Soliqua 100 Unit-33 Mcg/ml Pen] 18 units SQ DAILY 07/24/19 L.acidoph,Paracasei, B.lactis [Probiotic] 1 each PO DAILY 07/24/19 Rivaroxaban [Xarelto*] 10 mg PO DAILY tablet 08/25/20 Ascorbate Calcium [Vitamin C] 500 mg PO DAILY 10/12/20 Losartan Potassium 25 mg PO DAILY 10/12/20 Medihoney [Medihoney Woundcare Gel*] 1 appl TOP DAILY #1 tube 10/12/20 Zinc Sulfate [Zinc Sulfate*] 1 cap PO DAILY 10/12/20 New Medications: Medihoney [Medihoney Woundcare Gel*] 1 appl TOP DAILY #1 tube Physician Discharge Instructions: Patient presented with acute on chronic osteomyelitis of the left distal metatarsal. Patient recently hospitalized and sent to long-term acute care facility to continue IV antibiotic therapy. He had been sent home with a PICC line with continued antibiotic therapy. Most recently this was not working properly. This was eventually repaired. Patient required observation. Infectious disease evaluated patient. Previous wound culture showed cultures positive for Pseudomonas. Case discussed in detail with infectious disease. Infectious disease recommended to continue outpatient IV antibiotic therapy. This was arranged. Patient will continue with IV Invanz 1 g daily for 3 weeks. Patient will continue with current wound care as directed by infectious disease. Recommend to check labBMP every week while on antibiotic therapy. Recommend follow-up with infectious disease within 1 week to follow-up his hospitalization and continue his care. Patient plans to continue with hyperbaric treatment as an outpatient. Recommend follow-up with PCP to further monitor and adjust medication. Patient with other chronic medical problems including atrial fibrillation on chronic anticoagulation therapy, diabetes mellitus type 2 insulin-dependent, hypertension, and hyperlipidemia. At discharge patient will continue with his current medications. Recommend follow-up with his PCP to further monitor and adjust medication. Strict diabetic control will be required. This can be done with the help of his PCP. Diet: ADA Activity: Ad codi Followup: Hazel Mcbride MD [Primary Care Provider] - Time spent managing pt's care (in minutes): 55
[2020-10-12 18:11] VITALS: BP 153/70; TEMP 98.9
[2020-10-12] MEDS ORDERED: ATORVASTATIN 20 MG TAB PO SCH (21:00)
[2020-10-13] MEDS ORDERED: MEDIHONEY 44 ML TOPICAL TUBE TOP SCH (09:00)
== END 2020-10-12 17:38 | disposition home health service (06) ==
LOC: ER 23:17 → ERHOLD 10-12 02:00 → INTOOBSV 10-12 02:00 → 2ND 10-12 08:09
PROVIDERS: ADMIT Family Medicine; ATTEND Family Medicine
DX: E11.69 Type 2 diabetes mellitus with other specified complication (principal); M86.172 Other acute osteomyelitis, left ankle and foot; M86.672 Other chronic osteomyelitis, left ankle and foot; I48.91 Unspecified atrial fibrillation; I10 Essential (primary) hypertension; E78.5 Hyperlipidemia, unspecified; Z20.822 Contact with and (suspected) exposure to COVID-19; Z79.4 Long term (current) use of insulin; E11.40 Type 2 diabetes mellitus with diabetic neuropathy, unspecified; Z79.01 Long term (current) use of anticoagulants; E46 Unspecified protein-calorie malnutrition; E11.65 Type 2 diabetes mellitus with hyperglycemia; D64.9 Anemia, unspecified; Z68.26 Body mass index [BMI] 26.0-26.9, adult
CPT/HCPCS: 96365; 93005; 87040 ×2; 87070; 85025; 80048; 36415; 87205; 85610; 82947 ×2; 80076; 83605; 85730; 85652; 87077; 87186; 84145; 86140; 73630; 73718; 96375; 99285; 96366; U0003; J3370 ×3; J1335; J2543; J7050; J7040 ×2; J2405

== ENCOUNTER 2020-10-13 13:07 | Emergency (ER) | payer BC ==
--- OUTSIDE RECORDS SUMMARY | 2020-10-13 13:10 | XMS REPORT | Continuity of Care Document ---
:1965 Author Organization [facility] t Address [address] [place] [address] Care Team Providers Name Role Phone Provider Primary Care Physician Unavailable Jem Darling DO Attending Clinician Doctor Unassigned, Name Attending Clinician Unavailable Nasreen MCCALLUM Attending Clinician Fauzia Sparks MD Attending Clinician [phone] Payers Payer Name Policy Type Policy Number Effective Date Expiration Date S ource BCBSBCBS [id number] 2014 [place] CHOICE 00:00:00 [place] PPO/FEDERAL EMPL PPOxxxxxxxxGQH J2014-Pres entPPO Problems This patient has no known problems. Allergies, Adverse Reactions, Alerts This patient has no known allergies or adverse reactions. Family History Family Member Diagnosis Comments Start Date Stop Date Source Natural mother Stroke [facility] Social History Social Habit Start Date Stop Date Quantity Comments Source Tobacco use and 2017-05-02 2017-05-02 Never used [facility] ethodist exposure 00:00:00 00:00:00 Alcohol intake 2017-05-02 2017-05-02 Current drinker [place] 00:00:00 00:00:00 of alcohol (finding) Sex [birth year] [facility] ethodist 00:00:00 00:00:00 Smoking Status Start Date Stop Date Source Never smoker [place] [facility] t Medications Ordered Filled Start Stop [...] Future Scheduled 2020-12-18 INFLUENZA VACCINE [place] Test 00:00:00 [code = INFLUENZA VACCINE] Future Scheduled 2014-01-09 COLONOSCOPY SCREENING [place] [facility] Test 00:00:00 [code = COLONOSCOPY SCREENING] Future Scheduled 2014-01-09 SHINGLES VACCINES [place] Test 00:00:00 (#1) [code = SHINGLES VACCINES (#1)] Future Scheduled 1976 COVID-19 VACCINE (1) [place] [facility] Test 00:00:00 [code = COVID-19 VACCINE (1)] Encounters Start End Encounter Admission Attending Care Care Encounter Source Date/Time Date/Time Type Type Clinicians Facility Department ID 2020-07-30 2020-07-30 Patient [place] Darling [id number] 00:00:00 00:00:00 Outreach Emil [facility] [id number] [facility] [id number] [place] [id number] 2020-04-07 2020-04-07 Orders Doctor ROB [id number] 00:00:00 00:00:00 Only Unassigned, BHANU [id number] [place] [facility] [id number] 2020-03-24 2020-03-24 Office VIRGINIA Downey [id number] 13:31:05 13:59:57 Visit Jakub Mariscal [id number] [facility] [id number] [place] [id number] [address] 2020-03-24 2020-03-24 Patient [place]IR[place]IA Downey [id number] 00:00:00 00:00:00 [facility] [id number] Cancer [id number] [facility] [id number] [facility] 204 Results This patient has no known results.
[2020-10-13 13:57] LABS: Absolute Lymphocytes (CBC) 0.9 K/uL (0.7-4.9); Basophils % 0.5 % (0-1.3); Hematocrit 33.1 % (39.6-49.0); Lymphocytes % 7.3 % (15.3-44.8); MPV 7.7 fL (7.6-11.3); RBC Red Blood Cell Count 4.21 M/uL (4.33-5.43)
[2020-10-13] MEDS ORDERED: NA CHLORIDE 0.9% 1,000 ML ONE (13:59)
[2020-10-13] MEDS ORDERED: ONDANSETRON 4 MG/2 ML VIAL ONE (13:59)
[2020-10-13 14:12] LABS: BUN Blood Urea Nitrogen 18 mg/dL (7-18); Bicarbonate 25 mmol/L (21-32); Glucose Level 149 mg/dL (74-106); Sodium Level 135 mmol/L (136-145)
--- NOTE | 2020-10-13 14:58 | EDPHYS ---
Physician Documentation [facility] Name: Zeke Mackay Sr Age: 55 yrs Sex: Male : 1965 Arrival Date: 10/13/2020 Time: 13:11 Bed 7 Private MD: ED Physician Pratik Solorzano HPI: 10/13 15:12 This 55 yrs old Male presents to ER via Ambulatory with complaints of Foot kb Infection. 15:12 The patient presents with ulcer/open wound. The complaints affect the left foot. kb Context: the patient can fully bear weight, the patient is able to ambulate, pressure ulcer. Onset: The symptoms/episode began/occurred 2 month(s) ago. Modifying factors: The symptoms are alleviated by nothing, the symptoms are aggravated by nothing. Associated signs and symptoms: Pertinent positives: nausea, chills, malaise. Severity of symptoms: At their worst the symptoms were moderate, in the emergency department the symptoms are unchanged. The patient has experienced similar episodes in the past. The patient has been recently seen at the [facility] Emergency Department, The patient has been recently been admitted at [facility], was discharged yesterday. Pt reports he is being treated with IV antibiotics at home through a PICC line. States he is not feeling any better, has chills and nausea. Pt was admitted and discharged twice this week for similar complaints. 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 Pneumococcal vaccine is up to date, Flu vaccine is up to date. - Social history:: Smoking status: Patient denies any tobacco usage or history of. ROS: 15:10 Respiratory: Negative for shortness of breath, cough, wheezing, and pleuritic chest kb pain. 15:10 Constitutional: Positive for chills, malaise. 15:10 Abdomen/GI: Positive for nausea, Negative for abdominal pain, vomiting, diarrhea. 15:10 Skin: Positive for ulceration, of the ball of left foot. 15:10 All other systems are negative. Exam: 15:11 Constitutional: This is a well developed, well nourished patient who is awake, alert, kb and in no acute distress. Head/Face: Normocephalic, atraumatic. ENT: Moist Mucous membranes Respiratory: Respirations even and unlabored. No increased work of breathing, no retractions or nasal flaring. Abdomen/GI: Soft, non-tender. No distention MS/ Extremity: Pulses equal, no cyanosis. Neurovascular intact. Full, normal range of motion. Neuro: Awake and alert, GCS 15, oriented to person, place, time, and situation. Moves all extremities. Normal gait. Psych: Awake, alert, with orientation to person, place and time. Behavior, mood, and affect are within normal limits. 15:11 Skin: lesion(s), noted, and can be described as ulcerated, located on the ball of left foot. Vital Signs: 13:15 BP 154 / 70; Pulse 88; Resp 16 S; Temp 98(TE); Pulse Ox 98% on R/A; Weight 95.25 kg ca1 (R); Height 6 ft. 2 in. (187.96 cm) (R); Pain 4/10; 14:30 BP 139 / 66; Pulse 87; Resp 15; Pulse Ox 97% on R/A; hb 15:45 BP 140 / 60; Pulse 86; Resp 15; Pulse Ox 97% on R/A; hb 13:15 Body Mass Index 26.96 (95.25 kg, 187.96 cm) ca1 MDM: 13:20 Patient medically screened. kb 14:48 Data reviewed: vital signs, nurses notes. Data interpreted: Pulse oximetry: on room air kb is 97 %. Interpretation: normal. Counseling: I had a detailed discussion with the patient and/or guardian regarding: the historical points, exam findings, and any diagnostic results supporting the discharge/admit diagnosis, lab results, the need for outpatient follow up, a family practitioner, to return to the emergency department if symptoms worsen or persist or if there are any questions or concerns that arise at home. Physician consultation: Av Miranda DO was contacted at 14:48, in the emergency department to see patient at 14:48. 16:51 ED course: Dr Miranda consulted Dr Alexis about condition as well. Plan is to continue kb antibiotics at home, add nausea medication, pepcid and increase probiotic to twice a day. Dr Miranda will call pt tomorrow to follow up. Possibility of sending to [facility] for treatment if pt isn't feeling better. . 10/13 13:28 Order name: CBC with Diff kb 10/13 13:28 Order name: Basic Metabolic Panel; Complete Time: 14:14 kb 10/13 13:29 Order name: CBC with Automated Diff; Complete Time: 14:02 EDMS 10/13 13:28 Order name: IV Start; Complete Time: 13:59 kb 10/13 13:28 Order name: Wound dressing; Complete Time: 14:47 kb Administered Medications: 13:44 Drug: NS 0.9% 1000 ml Route: IV; Rate: 1000 ml; Site: PICC; hb 15:57 Follow up: Response: No adverse reaction; IV Status: Completed infusion; IV Intake: hb 1000ml 13:44 Drug: Zofran (Ondansetron) 4 mg Route: IVP; Site: PICC; hb 14:30 Follow up: Response: No adverse reaction hb 14:46 Drug: Pepcid (famotidine) 20 mg Route: IVP; Site: PICC; hb 15:30 Follow up: Response: No adverse reaction hb 14:47 Drug: Phenergan (promethazine) 12.5 mg Route: IVP; Site: PICC; hb 15:30 Follow up: Response: No adverse reaction hb 15:57 Drug: Phenergan (promethazine) 12.5 mg Route: IVP; Site: PICC; hb 15:58 Follow up: Response: Medication administered at discharge. hb 15:57 Drug: Benadryl (diphenhydrAMINE) 12.5 mg Route: IVP; Site: PICC; hb 15:58 Follow up: Response: Medication administered at discharge. hb Disposition: 18:56 Co-signature as Attending Physician, Pratik Solorzano MD I agree with the assessment and kdr plan of care. Disposition: 10/13/20 14:57 Discharged to Home. Impression: Osteomyelitis. - Condition is Stable. - Discharge Instructions: [facility] Home Guide. - Prescriptions for Pepcid 20 mg Oral Tablet - take 1 tablet by ORAL route every 12 hours for 10 days; 20 tablet. promethazine 25 mg Oral Tablet - take 1 tablet by ORAL route every 8 hours As needed; 20 tablet. - Medication Reconciliation Form, Thank You Letter, Antibiotic Education, Prescription Opioid Use form. - Follow up: Emergency Department; When: As needed; Reason: Worsening of condition. Follow up: Private Physician; When: 2 - 3 days; Reason: Recheck today's complaints, Continuance of care, Re-evaluation by your physician. Signatures: Dispatcher [employer] EDMA Nicci Sanchez, RIDDHI-C BROADCAST DIRECTOR OPERATIONS-Pratik Bill MD MD [facility] Mary Kay Munson, ARTURO RN Acob, ARTURO Bello RN [facility] Corrections: (The following items were deleted from the chart) 16:32 14:57 10/13/2020 14:57 Discharged to Home. Impression: Osteomyelitis. Condition is hb Stable. Forms are Medication Reconciliation Form, Thank You Letter, Antibiotic Education, Prescription Opioid Use. Follow up: Emergency Department; When: As needed; Reason: Worsening of condition. Follow up: Private Physician; When: 2 - 3 days; Reason: Recheck today's complaints, Continuance of care, Re-evaluation by your physician. kb
--- NOTE | 2020-10-13 14:58 | ER ---
Nurse's Notes [facility] Name: Zeke Mackay Sr Age: 55 yrs Sex: Male : 1965 Arrival Date: 10/13/2020 Time: 13:11 Bed 7 Private MD: Diagnosis: Osteomyelitis Presentation: 10/13 13:15 Chief complaint: Patient states: Was here 2 days for same thing. I have a L foot ca1 infection, on IV ABX vis PICC line care of nurse. I am still feeling weak, nauseated, belching, gassy and haven't gone to the bathroom for couple days, chills. Coronavirus screen: Client denies travel out of the [place] in the last 14 days. chills, nausea, Client presents with at least one sign or symptom that may indicate coronavirus-19. Standard/surgical mask placed on the client. Provider contacted for isolation considerations. Ebola Screen: Patient negative for fever greater than or equal to 101.5 degrees Fahrenheit, and additional compatible Ebola Virus Disease symptoms Patient denies exposure to infectious person. Patient denies travel to an Ebola-affected area in the 21 days before illness onset. No symptoms or risks identified at this time. Initial Sepsis Screen: Does the patient meet any 2 criteria? No. Patient's initial sepsis screen is negative. Does the patient have a suspected source of infection? No. Patient's initial sepsis screen is negative. Risk Assessment: Do you want to hurt yourself or someone else? Patient reports no desire to harm self or others. Onset of symptoms was October 13, 2020. 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 Pneumococcal vaccine is up to date, Flu vaccine is up to date. - Social history:: Smoking status: Patient denies any tobacco usage or history of. Screenin:01 Abuse screen: Denies threats or abuse. Nutritional screening: No deficits noted. em Tuberculosis screening: No symptoms or risk factors identified. Fall Risk None identified. Assessment: 14:03 General: Appears in no apparent distress. comfortable, Behavior is calm, cooperative, em appropriate for age, Reports chills for 12-24 hours. Pain: Complains of pain in left foot. Neuro: Level of Consciousness is awake, alert, obeys commands, Oriented to person, place, time, situation. Cardiovascular: Capillary refill < 3 seconds Patient's skin is warm and dry. Respiratory: Airway is patent Respiratory effort is even, unlabored, Respiratory pattern is regular, symmetrical. GI: Reports nausea. Derm: Skin is intact, is healthy with good turgor, Skin is pink, warm \T\ dry. Wound noted ball of left foot. 14:22 Reassessment: Dr. Miranda at bedside. hb 15:02 Reassessment: Discharge pending completion of IV fluids. hb 15:58 General: Pt c/o nausea. ADMINISTRATIVE LAW JUDGE Nicci notified, Benadryl and Phenergan administered as hb ordered. Pt discharged. Awaiting transportation at this time. . Vital Signs: 13:15 BP 154 / 70; Pulse 88; Resp 16 S; Temp 98(TE); Pulse Ox 98% on R/A; Weight 95.25 kg ca1 (R); Height 6 ft. 2 in. (187.96 cm) (R); Pain 4/10; 14:30 BP 139 / 66; Pulse 87; Resp 15; Pulse Ox 97% on R/A; hb 15:45 BP 140 / 60; Pulse 86; Resp 15; Pulse Ox 97% on R/A; hb 13:15 Body Mass Index 26.96 (95.25 kg, 187.96 cm) ca1 ED Course: 13:11 Patient arrived in ED. mr 13:17 Triage completed. ca1 13:18 Arm band placed on right wrist. ca1 13:20 Nicci Sanchez FNP-C is [facility]. kb 13:20 Pratik Solorzano MD is Attending Physician. kb 13:23 Javier Gibbs, ARTURO is Primary Nurse. em 13:50 IV is patent, is intact, with fluids infusing freely, with good blood return, PICC R em upper arm. 14:01 Patient has correct armband on for positive identification. Call light in reach. Pulse em ox on. NIBP on. 14:15 CBC with Diff Sent. sv 16:00 No provider procedures requiring assistance completed. PICC flushed and capped with swab caps, dressing dry and in place. Administered Medications: 13:44 Drug: NS 0.9% 1000 ml Route: IV; Rate: 1000 ml; Site: PICC; hb 15:57 Follow up: Response: No adverse reaction; IV Status: Completed infusion; IV Intake: hb 1000ml 13:44 Drug: Zofran (Ondansetron) 4 mg Route: IVP; Site: PICC; hb 14:30 Follow up: Response: No adverse reaction hb 14:46 Drug: Pepcid (famotidine) 20 mg Route: IVP; Site: PICC; hb 15:30 Follow up: Response: No adverse reaction hb 14:47 Drug: Phenergan (promethazine) 12.5 mg Route: IVP; Site: PICC; hb 15:30 Follow up: Response: No adverse reaction hb 15:57 Drug: Phenergan (promethazine) 12.5 mg Route: IVP; Site: PICC; hb 15:58 Follow up: Response: Medication administered at discharge. hb 15:57 Drug: Benadryl (diphenhydrAMINE) 12.5 mg Route: IVP; Site: PICC; hb 15:58 Follow up: Response: Medication administered at discharge. hb Intake: 15:57 IV: 1000ml; Total: 1000ml. hb Outcome: 14:57 Discharge ordered by . kb 16:00 Discharged to home ambulatory. hb 16:00 Condition: stable 16:00 Discharge instructions given to patient, Instructed on discharge instructions, follow up and referral plans. medication usage, Demonstrated understanding of instructions, follow-up care, medications, Prescriptions given X 2. 16:32 Patient left the ED. hb Signatures: Nicci Sanchez, SCRUB TECHNICIAN-C SCRUB TECHNICIAN-Maria Eugenia Rodriguez RN RN sv Rivera, Mary mr Munoz, Edgar, RN RN em Baxter, Heather, RN RN hb Acob, Cheryl, RN RN ca1 Corrections: (The following items were deleted from the chart) 13:23 13:15 Chief complaint: Patient states: Was here 2 days for same thing. I have a L foot ca1 infection, on IV ABX vis PICC line c/o HH. I am still feeling weak, nauseated, belching, gassy and haven't gone to the bathroom for couple days, chills ca1 14:50 14:03 GI: Patient currently denies nausea, vomiting, em em
[2020-10-13] MEDS ORDERED: FAMOTIDINE 20 MG/2 ML VIAL IV ONE (15:03)
[2020-10-13] MEDS ORDERED: PROMETHAZINE INJ 25 MG/ML AMP ONE ×2 (15:03→16:10)
[2020-10-13] MEDS ORDERED: DIPHENHYDRAMINE 50 MG/ML VIAL ONE (16:10)
[2020-10-13 16:37] VITALS: TEMP 98
[2020-10-13 16:39] VITALS: O2SAT 97
[2020-10-13 16:40] VITALS: BP 140/60
--- NOTE | 2020-10-13 17:30 | P.CNS ---
Date of Consult: 10/13/20 Reason for Consult: ER evaluation Requesting Physician: Pratik Solorzano Primary Care Provider: Dr. Mcbride; Infectious disease-Dr. Ryan Chief Complaint: Fatigue History of Present Illness: 55-year-old male with history of atrial fibrillation on chronic anticoagulation therapy, diabetes mellitus type 2 insulin-dependent, hypertension, and hyperlipidemia. Patient was recently hospitalized for acute on chronic osteomyelitis of the left distal metatarsal. Arrangements for IV antibiotic therapyInvanz 1 g daily was arranged. Patient was seen in the ER for nausea and fatigue. I was asked to evaluate patient for possible admission or discharge. When I saw the patient. He had yet to follow-up with his PCP. He actually has not followed up with his PCP in quite some time. Patient has received the necessary IV antibiotic therapy as an outpatient. No significant drainage noted to the left lower extremity. No significant erythema noted. CBC unremarkable. BMP unremarkable. Allergies No Known Allergies Allergy (Verified 08/17/20 20:54) Home medications list reviewed: Yes Home Medications: Metformin HCl 1,000 mg PO BID 08/04/18 Atorvastatin Calcium [Lipitor*] 20 mg PO DAILY 07/24/19 Dapagliflozin Propanediol [Farxiga] 10 mg PO DAILY 07/24/19 Insulin Glargine/Lixisenatide [Soliqua 100 Unit-33 Mcg/ml Pen] 18 units SQ DAILY 07/24/19 L.acidoph,Paracasei, B.lactis [Probiotic] 1 each PO DAILY 07/24/19 Rivaroxaban [Xarelto*] 10 mg PO DAILY tablet 08/25/20 Ascorbate Calcium [Vitamin C] 500 mg PO DAILY 10/12/20 Losartan Potassium 25 mg PO DAILY 10/12/20 Medihoney [Medihoney Woundcare Gel*] 1 appl TOP DAILY #1 tube 10/12/20 Zinc Sulfate [Zinc Sulfate*] 1 cap PO DAILY 10/12/20 - Past Medical/Surgical History Diabetic: Yes -: Diabetic neuropathy -: Diabetes mellitus type 2 insulin-dependent -: Hypertension -: Chronic osteomyelitis -: AFib on anticoagulation -: lap appy -: L wrist fx repair -: R hand fx repair -: c3-6 fused Psychosocial/ Personal History: Patient is retired, lives with his and children - Family History Father Medical History: Diabetes, Other (see notes) Notes: Stroke - Social History Smoking Status: Unknown if ever smoked Alcohol use: No CD- Drugs: No Caffeine use: Yes Place of Residence: Home Review of Systems General: Weakness, As per HPI Eyes: Unremarkable ENT: Unremarkable Respiratory: Unremarkable Cardiovascular: Unremarkable Gastrointestinal: Nausea Genitourinary: Unremarkable Musculoskeletal: As per HPI Integumentary: Unremarkable Neurological: Unremarkable Lymphatics: Unremarkable Physical Examination Temp Pulse Resp BP Pulse Ox 98 F 86 15 140/60 10/13/20 13:15 10/13/20 15:45 10/13/20 15:45 10/13/20 15:45 General: Alert, In no apparent distress, Oriented x3, Cooperative HEENT: Atraumatic Neck: Supple Respiratory: Normal air movement Cardiovascular: Normal pulses Gastrointestinal: Normal bowel sounds, No tenderness, No masses, No rebound, No guarding Musculoskeletal: Other (No significant erythema to the left lower extremity. Unchanged since last visit which was yesterday. No significant exudate noted.) Neurological: Normal speech, Normal strength at 5/5 x4 extr, Normal tone, Normal affect Laboratory Data (last 24 hrs) 10/13/20 13:45: Sodium 135 L, Potassium 4.0, BUN 18, Creatinine 0.81, Glucose 149 H 10/13/20 13:45: WBC 11.70 H, Hgb 10.6 L, Hct 33.1 L, Plt Count 328 Conclusions/Impression: Impression: Fatigue, nausea suspect GERD Acute on chronic osteomyelitis of the left distal metatarsal on IV outpatient antibiotic therapyInvanz Diabetes mellitus type 2 insulin-dependent Hypertension Hyperlipidemia Atrial fibrillation on chronic anticoagulation therapy Plan: Patient evaluated in the emergency room. CBC, BMP unremarkable. Patient appears stable. Unchanged since I last discharged him. Some nausea and fatigue noted. Suspect underlying GERD. Recommend Pepcid 20 mg 1 pill twice daily. We will also recommend Phenergan as needed for nausea. Spoke in detail with the patient. Patient does not necessarily meet criteria to be readmitted. No need for IV fluids at this time. Patient has everything arranged at home to continue IV antibiotic therapy for chronic osteomyelitis. I recommended the patient follow-up with his PCP within 1 week to follow-up this hospitalization and continue his care. He has not followed up with his PCP in quite some time. Also will reach out to infectious disease so that the patient is followed closely for his chronic wound. Other consideration would be to have patient be accepted to long-term acute care facility to continue his care. We will check with certified social workers in health care. For now patient can be discharged home. I will reach out tomorrow to see how the patient is doing. Case discussed in detail with nurse practitioner ER provider and patient. All in agreement with plan of care. Patient will continue his current medications at this time. Please see discharge summary for more details. Time Spent Managing Pts care (In Minutes): 55
[2020-10-13] MEDS ORDERED: METOCLOPRAMIDE 10 MG/2mL INJ ONE (18:14)
== END 2020-10-13 16:32 | disposition home or self-care (01) ==
LOC: ER 13:07
DX: M86.672 Other chronic osteomyelitis, left ankle and foot (principal); R11.0 Nausea; I10 Essential (primary) hypertension; E11.40 Type 2 diabetes mellitus with diabetic neuropathy, unspecified; E78.5 Hyperlipidemia, unspecified; I48.91 Unspecified atrial fibrillation; Z79.2 Long term (current) use of antibiotics; Z79.01 Long term (current) use of anticoagulants; Z79.4 Long term (current) use of insulin; Z83.3 Family history of diabetes mellitus; Z82.3 Family history of stroke
CPT/HCPCS: 96361; 85025; 80048; 36415; 96375; 96374; 99284; J2765; J2550 ×2; J1200; J7030; J2405

== ENCOUNTER 2020-10-13 17:09 | Observation (INO) | payer BC ==
--- OUTSIDE RECORDS SUMMARY | 2020-10-13 17:13 | XMS REPORT | Continuity of Care Document ---
:1965 Author Organization [facility] t Address [address] [place] [address] Care Team Providers Name Role Phone Provider Primary Care Physician Unavailable Jem Darling DO Attending Clinician Doctor Unassigned, Name Attending Clinician Unavailable Nasreen MCCALLUM Attending Clinician Fauzia Sparks MD Attending Clinician [phone] Payers Payer Name Policy Type Policy Number Effective Date Expiration Date S ource BCBSBCBS [id number] 2014 [place] CHOICE 00:00:00 [place] PPO/FEDERAL EMPL PPOxxxxxxxxGQH J2014-Pres entPPO Problems This patient has no known problems. Allergies, Adverse Reactions, Alerts This patient has no known allergies or adverse reactions. Family History Family Member Diagnosis Comments Start Date Stop Date Source Natural mother Stroke [facility] thodi Social History Social Habit Start Date Stop Date Quantity Comments Source Tobacco use and 2017-05-02 2017-05-02 Never used [facility] ethodist exposure 00:00:00 00:00:00 Alcohol intake 2017-05-02 2017-05-02 Current drinker [place] [facility] 00:00:00 00:00:00 of alcohol (finding) Sex Ass[birth year] At [birth year] [facility] ethodist 00:00:00 00:00:00 Smoking Status Start Date Stop Date Source Never smoker [place] [employer] Medications Ordered Filled Start Stop Current Ordering [...] Future Scheduled 2020-12-18 INFLUENZA VACCINE [place] [facility] Test 00:00:00 [code = INFLUENZA VACCINE] Future Scheduled 2014-01-09 COLONOSCOPY SCREENING [place] Test 00:00:00 [code = COLONOSCOPY SCREENING] Future Scheduled 2014-01-09 SHINGLES VACCINES [place] [facility] Test 00:00:00 (#1) [code = SHINGLES VACCINES (#1)] Future Scheduled 1976 COVID-19 VACCINE (1) [place] [facility] Test 00:00:00 [code = COVID-19 VACCINE (1)] Encounters Start End Encounter Admission Attending Care Care Encounter Source Date/Time Date/Time Type Type Clinicians Facility Department ID 2020-07-30 2020-07-30 Patient [place] Darling [id number] 00:00:00 00:00:00 Outreach Emil [facility] [id number] [facility] [id number] [place] [id number] 2020-04-07 2020-04-07 Orders Doctor ROB [id number] 00:00:00 00:00:00 Only Unassigned, BHANU [id number] [place] [facility] [id number] 2020-03-24 2020-03-24 Office VIR[place]IA Downey [id number] 13:31:05 13:59:57 Visit Jakub Mariscal [id number] [place] [id number] [place] [id number] [address] 2020-03-24 2020-03-24 Patient [place]IA Downey [id number] 00:00:00 00:00:00 [facility] [id number] Cancer [id number] [facility] [id number] [facility] 204 Results This patient has no known results.
--- NOTE | 2020-10-13 18:19 | EDPHYS ---
Physician Documentation [facility] Name: Zeke Mackay Sr Age: 55 yrs Sex: Male : 1965 Arrival Date: 10/13/2020 Time: 17:17 Bed 8 Private MD: ED Physician Pratik Solorzano HPI: 10/13 17:37 This 55 yrs old Male presents to ER via Wheelchair with complaints of Foot kb Infection- sent by Dr Miranda. 17:37 The patient presents with pain, ulceration. The complaints affect the left foot. kb Context: the patient can fully bear weight, the patient is able to ambulate. Onset: The symptoms/episode began/occurred 2 month(s) ago. Modifying factors: The symptoms are alleviated by nothing, the symptoms are aggravated by nothing. Associated signs and symptoms: Pertinent positives: malaise, chills, n/v. Severity of symptoms: At their worst the symptoms were moderate, in the emergency department the symptoms are unchanged. The patient has experienced a previous episode. The patient has been recently seen at the [facility] Emergency Department, just prior to arrival, by me, for similar complaints labs were performed, was given a prescription for an antiemetic. 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 States he just doesn't feel well. states she spoke with Dr Alexis and he told them to come back to be admitted. States Dr Alexis was going to call Dr Miranda. 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 Pneumococcal vaccine is up to date, Flu vaccine is up to date. - Social history:: Smoking status: Patient denies any tobacco usage or history of. ROS: 21:49 Respiratory: Negative for shortness of breath, cough, wheezing, and pleuritic chest kb pain. 21:49 Constitutional: Positive for chills, fatigue, malaise. 21:49 Abdomen/GI: Positive for nausea and vomiting. 21:49 Skin: Positive for ulceration, of the ball of left foot. 21:49 All other systems are negative. Exam: 21:51 Constitutional: This is a well developed, well nourished patient who is awake, alert, kb and in no acute distress. ENT: Moist Mucous membranes Respiratory: Respirations even and unlabored. No increased work of breathing, no retractions or nasal flaring. Abdomen/GI: Soft, non-tender. No distention MS/ Extremity: Pulses equal, no cyanosis. Neurovascular intact. Full, normal range of motion. Neuro: Awake and alert, GCS 15, oriented to person, place, time, and situation. Moves all extremities. Normal gait. Psych: Awake, alert, with orientation to person, place and time. Behavior, mood, and affect are within normal limits. 21:51 Skin: lesion(s), noted, and can be described as ulcerated, located on the ball of left foot. Vital Signs: 17:21 BP 161 / 106; Pulse 103; Resp 16 S; Temp 97.6(TE); Pulse Ox 97% on R/A; Weight 92.25 kg ca1 (R); Height 6 ft. 2 in. (187.96 cm) (R); 19:00 BP 136 / 89; Pulse 90; Resp 15; Pulse Ox 97% ; rr5 20:00 BP 141 / 85; Pulse 100; Resp 17; Pulse Ox 98% ; rr5 20:40 BP 146 / 65; Pulse 95; Resp 18; Pulse Ox 97% ; rr5 17:21 Body Mass Index 26.11 (92.25 kg, 187.96 cm) ca1 MDM: 17:31 Patient medically screened. kb 17:37 Data reviewed: vital signs, nurses notes. Data interpreted: Pulse oximetry: on room air kb is 97 %. Interpretation: normal. 17:40 Counseling: I had a detailed discussion with the patient and/or guardian regarding: the kb historical points, exam findings, and any diagnostic results supporting the discharge/admit diagnosis, the need for further work-up and treatment in the hospital. Physician consultation: Av Miranda DO was called at 17:31. 18:08 Physician consultation: Av Miranda DO in the emergency department to see patient at kb 18:08. Administered Medications: 17:57 Drug: Reglan (metoCLOPramide) 10 mg Route: IVP; Site: PICC; hb 18:25 Follow up: Response: No adverse reaction hb 18:47 Drug: NS 0.9% 1000 ml Route: IV; Rate: 100 ml/hr; Site: PICC; hb 20:41 Follow up: Response: No adverse reaction; IV Status: Infusion continued upon admission; rr5 IV Intake: 200ml 20:40 Drug: Zofran (Ondansetron) 4 mg Route: IVP; Site: PICC; rr5 20:40 Follow up: Response: Other; given prior to trasnfer to floor rr5 Disposition: 10/14 06:50 Co-signature as Attending Physician, Pratik Solorzano MD I agree with the assessment and kdr plan of care. Disposition: 10/13/20 18:19 Hospitalization ordered by Av Miranda for Observation. Preliminary diagnosis is Nausea and vomiting - s/t medications. - Bed requested for Telemetry/MedSurg (observation). - Status is Observation. rr5 - Condition is Stable. - Problem is new. - Symptoms are unchanged. Signatures: Nicci Sanchez, CONCRETE STONE FINISHER-C CONCRETE STONE FINISHER-Ckb Pratik Solorzano MD MD [facility] Darlnee Flores, ARTURO RN cg Mary Kay Munson, ARTURO RN Eliceo Jolley, RN RN rr5 Eugenia Finley, RN RN ca1 Corrections: (The following items were deleted from the chart) 10/13 19:55 18:19 Hospitalization Ordered by Av Miranda DO for Observation. Preliminary cg diagnosis is Nausea and vomiting - s/t medications. Bed requested for Telemetry/MedSurg (observation). Status is Observation. Condition is Stable. Problem is new. Symptoms are unchanged. kb 20:43 19:55 10/13/2020 18:19 Hospitalization Ordered by Av Miranda DO for Observation. rr5 Preliminary diagnosis is Nausea and vomiting - s/t medications. Bed requested for Telemetry/MedSurg (observation). Status is Observation. Condition is Stable. Problem is new. Symptoms are unchanged. cg
--- NOTE | 2020-10-13 18:19 | ER ---
Nurse's Notes [facility] Name: Zeke Mackay Sr Age: 55 yrs Sex: Male : 1965 Arrival Date: 10/13/2020 Time: 17:17 Bed 8 Private MD: Diagnosis: Nausea and vomiting-s/t medications Presentation: 10/13 17:21 Chief complaint: Patient states: Was here today for the same thing. Still feeling so ca1 bad, N/V. Has infection on L foot. Coronavirus screen: Client denies travel out of the [place] in the last 14 days. nausea, vomiting. Client presents with at least one sign or symptom that may indicate coronavirus-19. Standard/surgical mask placed on the client. Provider contacted for isolation considerations. Ebola Screen: Patient negative for fever greater than or equal to 101.5 degrees Fahrenheit, and additional compatible Ebola Virus Disease symptoms Patient denies exposure to infectious person. Patient denies travel to an Ebola-affected area in the 21 days before illness onset. No symptoms or risks identified at this time. Initial Sepsis Screen: Does the patient meet any 2 criteria? No. Patient's initial sepsis screen is negative. Does the patient have a suspected source of infection? No. Patient's initial sepsis screen is negative. Risk Assessment: Do you want to hurt yourself or someone else? Patient reports no desire to harm self or others. Onset of symptoms was October 13, 2020. 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 Pneumococcal vaccine is up to date, Flu vaccine is up to date. - Social history:: Smoking status: Patient denies any tobacco usage or history of. Screenin:35 Abuse screen: Denies threats or abuse. Nutritional screening: No deficits noted. em Tuberculosis screening: No symptoms or risk factors identified. Fall Risk None identified. Assessment: 17:41 General: Appears in no apparent distress. Behavior is calm, cooperative. Pain: Pain hb currently is 5 out of 10 on a pain scale. Neuro: Level of Consciousness is awake, alert, obeys commands, Oriented to person, place, time, situation. Cardiovascular: Patient's skin is warm and dry. Respiratory: Respiratory effort is even, unlabored, Respiratory pattern is regular, symmetrical. GI: Reports nausea, vomiting. : No signs and/or symptoms were reported regarding the genitourinary system. EENT: No signs and/or symptoms were reported regarding the EENT system. Derm: Skin is pink, warm \T\ dry. Wound noted Other: unstageable wound noted to sole of left foot, draining serous fluid, and dry chronic wound to left inner ankle. Musculoskeletal: No signs and/or symptoms reported regarding the musculoskeletal system. 19:20 General: Appears in no apparent distress. comfortable, Behavior is calm, cooperative. rr5 Neuro: Level of Consciousness is awake, alert, obeys commands, Oriented to person, place, time. Cardiovascular: Capillary refill < 3 seconds Patient's skin is warm and dry. Respiratory: Airway is patent Respiratory effort is even, unlabored, Respiratory pattern is regular, symmetrical. Derm: Skin is intact, is healthy with good turgor, Skin temperature is warm. Musculoskeletal: Capillary refill < 3 seconds. 20:00 Reassessment: Patient appears in no apparent distress at this time. Patient is alert, rr5 oriented x 3, equal unlabored respirations, skin warm/dry/pink. awaiting for room assignment. 20:16 Reassessment: attemtped to call report. Instructed to wait for call back. jb4 20:41 Reassessment: Patient appears in no apparent distress at this time. complaint of rr5 nausea, stat medication given. Vital Signs: 17:21 BP 161 / 106; Pulse 103; Resp 16 S; Temp 97.6(TE); Pulse Ox 97% on R/A; Weight 92.25 kg ca1 (R); Height 6 ft. 2 in. (187.96 cm) (R); 19:00 BP 136 / 89; Pulse 90; Resp 15; Pulse Ox 97% ; rr5 20:00 BP 141 / 85; Pulse 100; Resp 17; Pulse Ox 98% ; rr5 20:40 BP 146 / 65; Pulse 95; Resp 18; Pulse Ox 97% ; rr5 17:21 Body Mass Index 26.11 (92.25 kg, 187.96 cm) ca1 ED Course: 17:17 Patient arrived in ED. ds1 17:29 Triage completed. ca1 17:30 Arm band placed on right wrist. ca1 17:31 Nicci Sanchez FNP-C is [facility]. kb 17:31 Pratik Solorzano MD is Attending Physician. kb 17:35 Javier Gibbs, RN is Primary Nurse. em 17:35 Patient has correct armband on for positive identification. Side rails up X2. Adult w/ em patient. Pulse ox on. NIBP on. 17:35 No provider procedures requiring assistance completed. em 17:58 Accessed PICC line. Clean \T\ dry. Dressing intact. Good blood return. Flushes easily. hb 18:19 Av Miranda DO is Hospitalizing Provider. kb 20:40 Patient admitted, IV remains in place. intact, No redness/swelling at site. rr5 Administered Medications: 17:57 Drug: Reglan (metoCLOPramide) 10 mg Route: IVP; Site: PICC; hb 18:25 Follow up: Response: No adverse reaction hb 18:47 Drug: NS 0.9% 1000 ml Route: IV; Rate: 100 ml/hr; Site: PICC; hb 20:41 Follow up: Response: No adverse reaction; IV Status: Infusion continued upon admission; rr5 IV Intake: 200ml 20:40 Drug: Zofran (Ondansetron) 4 mg Route: IVP; Site: PICC; rr5 20:40 Follow up: Response: Other; given prior to trasnfer to floor rr5 Intake: 20:41 IV: 200ml; Total: 200ml. rr5 Outcome: 18:19 Decision to Hospitalize by Provider. kb 20:40 Admitted to Med/surg accompanied by tech, via stretcher, room 219, with chart, Report rr5 called to dena levine 20:40 Condition: stable 20:40 Instructed on the need for admit. 20:43 Patient left the ED. rr5 Signatures: Nicci Sanchez FNP-C FNP-Javier White, RN ARTURO em Viky Griffiths ds1 Mary Kay Munson RN RN Venkata Torres RN RN jb4 Jolley, Eliceo, RN RN rr5 Acob, Eugenia, RN RN ca1
--- NOTE | 2020-10-13 18:38 | P.HP ---
Certification for Inpatient Patient admitted to: Observation With expected LOS: <2 Midnights Patient will require the following post-hospital care: None Practitioner: I am a practitioner with admitting privileges, knowledge of patient current condition, hospital course, and medical plan of care. Services: Services provided to patient in accordance with Admission requirements found in Title 42 Section 412.3 of the Code of Federal Regulations Patient History Date of Service: 10/13/20 Reason for admission: Nausea and vomiting History of Present Illness: 55-year-old male with history of atrial fibrillation on chronic anticoagulation, diabetes mellitus type 2, osteomyelitis, hypertension presents emergency department for vomiting. Patient recently was admitted for osteomyelitis, has PICC line and is on IV antibiotics per infectious disease. Patient was recently changed to meropenem for his osteomyelitis, it is believed that his nausea vomiting is likely related to the change antibiotic, patient also receive Phenergan during an earlier emergency department visit. Case was discussed at length with patient's and infectious disease, plan is for admission overnight under observation with rehydration and holding meropenem/switching to Zosyn. Allergies No Known Allergies Allergy (Verified 08/17/20 20:54) Home Medications: Metformin HCl 1,000 mg PO BID 08/04/18 Atorvastatin Calcium [Lipitor*] 20 mg PO DAILY 07/24/19 Dapagliflozin Propanediol [Farxiga] 10 mg PO DAILY 07/24/19 Insulin Glargine/Lixisenatide [Soliqua 100 Unit-33 Mcg/ml Pen] 18 units SQ DAILY 07/24/19 L.acidoph,Paracasei, B.lactis [Probiotic] 1 each PO DAILY 07/24/19 Rivaroxaban [Xarelto*] 10 mg PO DAILY tablet 08/25/20 Ascorbate Calcium [Vitamin C] 500 mg PO DAILY 10/12/20 Losartan Potassium 25 mg PO DAILY 10/12/20 Medihoney [Medihoney Woundcare Gel*] 1 appl TOP DAILY #1 tube 10/12/20 Zinc Sulfate [Zinc Sulfate*] 1 cap PO DAILY 10/12/20 - Past Medical/Surgical History Diabetic: Yes -: Neuropathy -: Diabetes -: Hyperlipidemia -: Osteomyelitis -: AFib on anticoagulation -: lap appy -: L wrist fx repair -: R hand fx repair -: c3-6 fused Psychosocial/ Personal History: Patient is retired, lives with his and children - Family History Father -: Diabetes, Other (see notes) Notes: Stroke - Social History Alcohol use: No CD- Drugs: No Caffeine use: Yes Review of Systems 10-point ROS is otherwise unremarkable Gastrointestinal: Nausea, Vomiting Physical Examination - Physical Exam General: Alert, In no apparent distress HEENT: Atraumatic, PERRLA, EOMI Neck: Supple, 2+ carotid pulse no bruit, No LAD, Without JVD or thyroid abnormality Respiratory: Clear to auscultation bilaterally, Normal air movement Cardiovascular: Regular rate/rhythm, Normal S1 S2 Gastrointestinal: Normal bowel sounds, No tenderness Musculoskeletal: No tenderness Integumentary: No rashes, Diabetic ulcer Neurological: Normal gait, Normal speech, Normal strength at 5/5 x4 extr, Normal tone, Normal affect Lymphatics: No axilla or inguinal lymphadenopathy Assessment and Plan - Plan Assessment Nausea vomiting likely secondary to recently initiated IV antibiotic therapy with meropenem for acute on chronic Osteomyelitis left distal metatarsal failed outpatient therapy Atrial fibrillation on chronic anticoagulation therapy Diabetes mellitus type 2 Hypertension Hyperlipidemia Plan Nausea vomiting likely secondary to recently initiated IV antibiotic therapy with meropenem for acute on chronic Osteomyelitis left distal metatarsal : Patient with multiple rounds of IV therapy, admission at acute care and long- term acute care facilities with recurrent osteomyelitis. Patient recently was without his PICC line for approximately 2 weeks after became dislodged and he missed his appointment for re insertion during that time patient was on oral antibiotics only. Patient received IV therapy with Zosyn 3.375 q. 8 and doxycycline 100 mg p.o. b.i.d. yesterday. Patient was recently admitted and IV antibiotics were switched to meropenem, after initiation of therapy with meropenem patient developed nausea and vomiting, case was discussed with infectious disease, plan is for discontinuation of meropenem and switching back to Zosyn 3.375 q. 8 H. for 3 weeks. Will give patient fluids overnight, p.r.n. anti emetics, plan is for discharge in the morning if patient is doing well. Continue Xarelto for DVT prophylaxis. Atrial fibrillation on chronic anticoagulation therapy: Continue Xarelto, other home medications. Diabetes mellitus type 2: A.c. HS Accu-Cheks scale insulin therapy. Hypertension: Continue home medications. Hyperlipidemia: Continue home medications. Discharge Plan: Home Plan to discharge in: 24 Hours - Advance Directives Does patient have a Living Will: No Does patient have a Durable POA for Healthcare: No - Code Status/Comfort Care Code Status Assessed: Yes (full code) Critical Care: No Time Spent Managing Pts Care (In Minutes): 55
[2020-10-13] MEDS ORDERED: NA CHLORIDE 0.9% 1,000 ML ONE (19:01)
[2020-10-13] MEDS ORDERED: ONDANSETRON 4 MG/2 ML VIAL ONE (20:54)
[2020-10-13 20:58] VITALS: O2SAT 97
[2020-10-13 21:09] VITALS: BMI 26.1
[2020-10-13] MEDS ORDERED: ONDANSETRON 4 MG/2 ML VIAL IV PRN (21:17)
[2020-10-13] MEDS: NA CHLORIDE 0.9% 1,000 ML IV SCH (21:36)
[2020-10-14] MEDS ORDERED: PIPER TAZO 3.375 GM in NA CHLORIDE 0.9% 100 ML IV SCH ×2
[2020-10-14] MEDS: PIPER/TAZO/NS 3.375gm 3.375 GM/100 ML BAG IV SCH ×2 (00:43→05:04)
[2020-10-14] MEDS ORDERED: PIPER/TAZO/NS 3.375gm 6.750 GM/200 ML BAG ONE (00:46)
[2020-10-14] MEDS ORDERED: PIPER/TAZO/NS 3.375gm 3.375 GM/100 ML BAG IVPB SCH (01:00)
[2020-10-14 06:20] LABS: ALT/SGPT 12 U/L (12-78); AST/SGOT 10 U/L (15-37); Albumin 2.3 g/dL (3.4-5.0); Alkaline Phosphatase 77 U/L (45-117); BUN Blood Urea Nitrogen 13 mg/dL (7-18); Bicarbonate 24 mmol/L (21-32); Bilirubin Total 0.4 mg/dL (0.2-1.0); Glucose Level 87 mg/dL (74-106); Potassium 3.9 mmol/L (3.5-5.1); Protein, Total 6.9 g/dL (6.4-8.2); Sodium Level 140 mmol/L (136-145)
--- NOTE | 2020-10-14 08:20 | P.DS ---
Admission Date: 10/13/20 Discharge Date: 10/14/20 Primary Care Provider: Dr. Mcbride; Infectious Disease-Dr. Ryan Disposition: DC HOME/HOME HEALTH CARE Discharge Condition: GOOD Reason for Admission: Nausea and vomiting Consultations: Infectious Disease-Dr. Ryan Procedures: COVID: Negative MRI: COMPARISON: Foot Left Wo Cont dated 07/24/2019; Foot Left Wo Cont dated 07/31/2018 FINDINGS: Soft tissue wound is seen involving the great toe near the first MTP joint. There is a amorphous soft tissue in this region which extends along the plantar aspect of the forefoot. Abnormal diminished T1 signal and elevated IR signal is present in the first sesamoid bones, particularly the medial sesamoid. This is most likely indicative of osteomyelitis. There is deformity the distal aspect of the proximal phalanx of the graft great toe which is has a chronic appearance. No evidence of osteomyelitis elsewhere in the foot. No soft tissue mass or fluid collections. IMPRESSION: Osteomyelitis is suspected involving the first metatarsal sesamoid bones, particularly the medial sesamoid. Medical Problem List: Nausea vomiting likely secondary to recently initiated IV antibiotic therapy with Invanz Acute on chronic Osteomyelitis left distal metatarsal failed outpatient therapy Atrial fibrillation on chronic anticoagulation therapy Diabetes mellitus type 2 Hypertension Hyperlipidemia Brief History of Present Illness: Reason for admission: Nausea and vomiting History of Present Illness: 55-year-old male with history of atrial fibrillation on chronic anticoagulation, diabetes mellitus type 2, osteomyelitis, hypertension presents emergency department for vomiting. Patient recently was admitted for osteomyelitis, has PICC line and is on IV antibiotics per infectious disease. Patient was recently changed to meropenem for his osteomyelitis, it is believed that his nausea vomiting is likely related to the change antibiotic, patient also receive Phenergan during an earlier emergency department visit. Case was discussed at length with patient's and infectious disease, plan is for admission overnight under observation with rehydration and holding meropenem/switching to Zosyn. Allergies No Known Allergies Allergy (Verified 08/17/20 20:54) Home Medications: Metformin HCl 1,000 mg PO BID 08/04/18 Atorvastatin Calcium [Lipitor*] 20 mg PO DAILY 07/24/19 Dapagliflozin Propanediol [Farxiga] 10 mg PO DAILY 07/24/19 Insulin Glargine/Lixisenatide [Soliqua 100 Unit-33 Mcg/ml Pen] 18 units SQ DAILY 07/24/19 L.acidoph,Paracasei, B.lactis [Probiotic] 1 each PO DAILY 07/24/19 Rivaroxaban [Xarelto*] 10 mg PO DAILY tablet 08/25/20 Ascorbate Calcium [Vitamin C] 500 mg PO DAILY 10/12/20 Losartan Potassium 25 mg PO DAILY 10/12/20 Medihoney [Medihoney Woundcare Gel*] 1 appl TOP DAILY #1 tube 10/12/20 Zinc Sulfate [Zinc Sulfate*] 1 cap PO DAILY 10/12/20 - Past Medical/Surgical History Diabetic: Yes -: Neuropathy -: Diabetes -: Hyperlipidemia -: Osteomyelitis -: AFib on anticoagulation -: lap appy -: L wrist fx repair -: R hand fx repair -: c3-6 fused Psychosocial/ Personal History: Patient is retired, lives with his and children - Family History Father -: Diabetes, Other (see notes) Notes: Stroke - Social History Alcohol use: No CD- Drugs: No Caffeine use: Yes Review of Systems 10-point ROS is otherwise unremarkable Gastrointestinal: Nausea, Vomiting Physical Examination - Physical Exam General: Alert, In no apparent distress HEENT: Atraumatic, PERRLA, EOMI Neck: Supple, 2+ carotid pulse no bruit, No LAD, Without JVD or thyroid abnormality Respiratory: Clear to auscultation bilaterally, Normal air movement Cardiovascular: Regular rate/rhythm, Normal S1 S2 Gastrointestinal: Normal bowel sounds, No tenderness Musculoskeletal: No tenderness Integumentary: No rashes, Diabetic ulcer Neurological: Normal gait, Normal speech, Normal strength at 5/5 x4 extr, Normal tone, Normal affect Lymphatics: No axilla or inguinal lymphadenopathy Assessment and Plan - Plan Hospital Course: Patient presented with nausea vomiting secondary to likely IV tabetic therapyInvanz. This was started on his most recent hospitalization and discharge. Patient has acute on chronic osteomyelitis of the left distal metatarsal. He was sent home with Invanz. Patient does not seem to tolerate this. Patient was admitted overnight. He has done well. Case discussed in detail with infectious disease. Infectious disease recommends to discontinue Invanz and replaced with Zosyn. Prior cultures of wound shows Pseudomonas. Zosyn was sensitive. At discharge we will make arrangements for the patient to continue with IV antibioticZosyn 3.375 g every 8 hours for 3 weeks. Patient will continue with lactobacillus 1-2 times a day. PICC line in place. Recommend to recheck labBMP every week to monitor his progress. Will make arrangements for the patient to establish care with a local PCP to continue his care and monitor. Patient will continue with current wound care as recommended by infectious disease. This includes applying Medihoney daily. Recommend follow-up with PCP in 1 week to follow his hospitalization and continue his care. We will try to arrange for the patient to see Dr. Beavers to establish care. Patient with atrial fibrillation on chronic anticoagulation therapy. At discharge patient will continue with Xarelto 10 mg daily. Patient with diabetes mellitus type 2 insulin-dependent. Blood sugar stable. At discharge recommend to continue with current diabetic medicationSoliqua 18 units subcu daily, metformin 1000 mg 1 pill twice daily, and Farxiga 10 mg daily. Recommend to monitor blood sugar at least twice daily. Recommend to maintain blood sugars less than 140 fasting and less than 200 after meals. If blood sugar remains elevated greater than 200, he will need to follow-up with his PCP to further monitor and adjust for better control. This will be important especially with his osteomyelitis. Patient sees endocrinology as an outpatient. Recommend to at least visit with endocrinology initially every mo nth until diabetes is well controlled. Recommend follow-up with PCP in 1 week to [facility]. Patient with hypertension. At discharge patient will continue with his current medicationlosartan 25 mg daily. Recommend to maintain blood pressure less than 130/80. Further adjustment can be done by his PCP. Patient with hyperlipidemia. At discharge patient will continue with his cur rent medicationLipitor 20 mg daily. Recommend to recheck fasting lipid panel in 4 to 6 weeks to monitor his progress. Vital Signs/Physical Exam: Temp Pulse Resp BP Pulse Ox 98.6 F 81 18 131/70 93 10/14/20 04:00 10/14/20 04:00 10/14/20 04:00 10/14/20 04:00 10/14/20 04:00 General: Alert, In no apparent distress, Oriented x3, Cooperative HEENT: Atraumatic Neck: Supple Respiratory: Clear to auscultation bilaterally, Normal air movement Cardiovascular: Normal pulses, Regular rate/rhythm Gastrointestinal: Normal bowel sounds, No masses, No rebound, No guarding Musculoskeletal: Other (Left diabetic foot ulcer to the left distal metatarsal plantar side. No significant erythema, no significant exudate.) Neurological: Normal speech, Normal strength at 5/5 x4 extr, Normal tone, Normal affect Laboratory Data at Discharge: Sodium 140 mmol/L (136-145) 10/14/20 05:40 Potassium 3.9 mmol/L (3.5-5.1) 10/14/20 05:40 BUN 13 mg/dL (7-18) 10/14/20 05:40 Creatinine 0.67 mg/dL (0.55-1.3) 10/14/20 05:40 Glucose 87 mg/dL (74-106) 10/14/20 05:40 Total Bilirubin 0.4 mg/dL (0.2-1.0) 10/14/20 05:40 AST 10 U/L (15-37) L 10/14/20 05:40 ALT 12 U/L (12-78) 10/14/20 05:40 Alkaline Phosphatase 77 U/L (45-117) 10/14/20 05:40 Home Medications: Metformin HCl 1,000 mg PO BID 08/04/18 Atorvastatin Calcium [Lipitor*] 20 mg PO DAILY 07/24/19 Dapagliflozin Propanediol [Farxiga] 10 mg PO DAILY 07/24/19 Insulin Glargine/Lixisenatide [Soliqua 100 Unit-33 Mcg/ml Pen] 18 units SQ DAILY 07/24/19 L.acidoph,Paracasei, B.lactis [Probiotic] 1 each PO DAILY 07/24/19 Rivaroxaban [Xarelto*] 10 mg PO DAILY tablet 08/25/20 Ascorbate Calcium [Vitamin C] 500 mg PO DAILY 10/12/20 Losartan Potassium 25 mg PO DAILY 10/12/20 Medihoney [Medihoney Woundcare Gel*] 1 appl TOP DAILY #1 tube 10/12/20 Zinc Sulfate [Zinc Sulfate*] 1 cap PO DAILY 10/12/20 Physician Discharge Instructions: Patient presented with nausea vomiting secondary to likely IV tabetic therapyInvanz. This was started on his most recent hospitalization and discharge. Patient has acute on chronic osteomyelitis of the left distal metatarsal. He was sent home with Invanz. Patient does not seem to tolerate this. Patient was admitted overnight. He has done well. Case discussed in detail with infectious disease. Infectious disease recommends to discontinue Invanz and replaced with Zosyn. Prior cultures of wound shows Pseudomonas. Zosyn was sensitive. At discharge we will make arrangements for the patient to continue with IV antibioticZosyn 3.375 g every 8 hours for 3 weeks. Patient will continue with lactobacillus 1-2 times a day. PICC line in place. Recommend to recheck labBMP every week to monitor his progress. Will make arrangements for the patient to establish care with a local PCP to continue his care and monitor. Patient will continue with current wound care as recommended by infectious disease. This includes applying Medihoney daily. Recommend follow-up with PCP in 1 week to follow his hospitalization and continue his care. We will try to arrange for the patient to see Dr. Beavers to establish care. Patient with atrial fibrillation on chronic anticoagulation therapy. At discharge patient will continue with Xarelto 10 mg daily. Patient with diabetes mellitus type 2 insulin-dependent. Blood sugar stable. At discharge recommend to continue with current diabetic medicationSoliqua 18 units subcu daily, metformin 1000 mg 1 pill twice daily, and Farxiga 10 mg daily. Recommend to monitor blood sugar at least twice daily. Recommend to maintain blood sugars less than 140 fasting and less than 200 after meals. If blood sugar remains elevated greater than 200, he will need to follow-up with his PCP to further monitor and adjust for better control. This will be important especially with his osteomyelitis. Patient sees endocrinology as an outpatient. Recommend to at least visit with endocrinology initially every month until diabetes is well controlled. Recommend follow-up with PCP in 1 week to [facility]. Patient with hypertension. At discharge patient will continue with his current medicationlosartan 25 mg daily. Recommend to maintain blood pressure less than 130/80. Further adjustment can be done by his PCP. Patient with hyperlipidemia. At discharge patient will continue with his current medicationLipitor 20 mg daily. Recommend to recheck fasting lipid panel in 4 to 6 weeks to monitor his progress. Diet: ADA Activity: Ad codi Followup: Hazel Mcbride MD [Primary Care Provider] - Time spent managing pt's care (in minutes): 55
[2020-10-14] MEDS ORDERED: METFORMIN HCL 500 MG TAB PO SCH (09:00)
[2020-10-14] MEDS ORDERED: LACTOBACILLUS/ACIDOPHILUS TAB PO SCH (09:00)
[2020-10-14] MEDS ORDERED: LOSARTAN POTASSIUM 50 MG TABLET PO SCH (09:00)
[2020-10-14] MEDS ORDERED: ASCORBIC ACID 500 MG TABLET PO SCH (09:00)
[2020-10-14] MEDS ORDERED: MEDIHONEY 44 ML TOPICAL TUBE TOP SCH (09:00)
[2020-10-14] MEDS ORDERED: ZINC SULFATE 220 MG CAP PO SCH (09:00)
[2020-10-14] MEDS: NA CHLORIDE 0.9% 1,000 ML IV SCH (09:09)
[2020-10-14] MEDS ORDERED: TRAMADOL HCL 50 MG TAB PO PRN (10:12)
[2020-10-14] MEDS ORDERED: PIPER/TAZO/NS 3.375gm 3.375 GM/100 ML BAG IV SCH (11:00)
[2020-10-14 12:43] VITALS: BP 130/61; TEMP 98.5
[2020-10-14] MEDS ORDERED: RIVAROXABAN 15 MG TABLET PO SCH (17:00)
[2020-10-14] MEDS ORDERED: ATORVASTATIN 20 MG TAB PO SCH (21:00)
== END 2020-10-14 16:27 | disposition home health service (06) ==
LOC: ER 17:09 → ERHOLD 18:22 → 2ND 20:39
PROVIDERS: ADMIT Family Medicine; ATTEND Family Medicine
DX: R11.2 Nausea with vomiting, unspecified (principal); E11.69 Type 2 diabetes mellitus with other specified complication; M86.172 Other acute osteomyelitis, left ankle and foot; M86.672 Other chronic osteomyelitis, left ankle and foot; B96.5 Pseudomonas (aeruginosa) (mallei) (pseudomallei) as the cause of diseases classified elsewhere; I48.91 Unspecified atrial fibrillation; I10 Essential (primary) hypertension; E11.40 Type 2 diabetes mellitus with diabetic neuropathy, unspecified; E78.5 Hyperlipidemia, unspecified; E03.9 Hypothyroidism, unspecified; Z20.822 Contact with and (suspected) exposure to COVID-19; Z79.01 Long term (current) use of anticoagulants; Z79.4 Long term (current) use of insulin; Z83.3 Family history of diabetes mellitus; Z82.3 Family history of stroke
CPT/HCPCS: 96361; 36415; 82947 ×4; 80053; 96375; 96374; 99285; J2543; J7030 ×3; J2405 ×2

== ENCOUNTER 2021-03-21 21:52 | Emergency (ER) | payer BC ==
--- NOTE | 2021-03-21 22:58 | EDPHYS ---
Physician Documentation [facility] Name: Zeke Mackay Sr Age: 56 yrs Sex: Male : 1965 Arrival Date: 03/21/2021 Time: 21:56 Bed 17 Private MD: ED Physician Paulino Gutierrez HPI: 03/21 22:34 This 56 yrs old Male presents to ER via Ambulatory with complaints of PIC mh7 LINE BLEEDING. 22:34 The patient or guardian complains of Bleeding at site of right arm PICC line. The mh7 complaints affect the Right arm. Context: The problem was sustained at home, resulted from unknown cause. Onset: The symptoms/episode began/occurred just prior to arrival, today. Treatment prior to arrival includes: no previous treatment. Modifying factors: The symptoms are alleviated by nothing. the symptoms are aggravated by nothing. Associated signs and symptoms: Pertinent negatives: decreased range of motion, deformity, erythema, fever, nausea, numbness, pain, swelling, tingling, vomiting, warmth, weakness. Severity of symptoms: At their worst the symptoms were mild, earlier today, in the emergency department the symptoms have improved, mildly. Patient reports bleeding from right upper extremity PICC line that was placed about a week ago to receive IV antibiotics for foot infection.. 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 - Social history:: Smoking status: Patient denies any tobacco usage or history of. Patient uses alcohol, occasionally. ROS: 22:34 Constitutional: Negative for fever, chills, and weight loss, Eyes: Negative for injury, mh7 pain, redness, and discharge, ENT: Negative for injury, pain, and discharge, Neck: Negative for injury, pain, and swelling, Cardiovascular: Negative for chest pain, palpitations, and edema, Respiratory: Negative for shortness of breath, cough, wheezing, and pleuritic chest pain, Abdomen/GI: Negative for abdominal pain, nausea, vomiting, diarrhea, and constipation, Back: Negative for injury and pain, : Negative for injury, bleeding, discharge, and swelling, Neuro: Negative for headache, weakness, numbness, tingling, and seizure, Psych: Negative for depression, anxiety, suicide ideation, homicidal ideation, and hallucinations, Allergy/Immunology: Negative for hives, rash, and allergies, Endocrine: Negative for neck swelling, polydipsia, polyuria, polyphagia, and marked weight changes. Exam: 22:34 Constitutional: This is a well developed, well nourished patient who is awake, alert, mh7 and in no acute distress. Head/Face: Normocephalic, atraumatic. Eyes: Pupils equal round and reactive to light, extra-ocular motions intact. Lids and lashes normal. Conjunctiva and sclera are non-icteric and not injected. Cornea within normal limits. Periorbital areas with no swelling, redness, or edema. Neck: Trachea midline, no thyromegaly or masses palpated, and no cervical lymphadenopathy. Supple, full range of motion without nuchal rigidity, or vertebral point tenderness. No Meningismus. Chest/axilla: Normal chest wall appearance and motion. Nontender with no deformity. No lesions are appreciated. Cardiovascular: Regular rate and rhythm with a normal S1 and S2. No gallops, murmurs, or rubs. Normal PMI, no JVD. No pulse deficits. Respiratory: Lungs have equal breath sounds bilaterally, clear to auscultation and percussion. No rales, rhonchi or wheezes noted. No increased work of breathing, no retractions or nasal flaring. Abdomen/GI: Soft, non-tender, with normal bowel sounds. No distension or tympany. No guarding or rebound. No evidence of tenderness throughout. Back: No spinal tenderness. No costovertebral tenderness. Full range of motion. Neuro: Awake and alert, GCS 15, oriented to person, place, time, and situation. Cranial nerves II-XII grossly intact. Motor strength 5/5 in all extremities. Sensory grossly intact. Cerebellar exam normal. Normal gait. Psych: Awake, alert, with orientation to person, place and time. Behavior, mood, and affect are within normal limits. 22:34 Musculoskeletal/extremity: Extremities: noted in the Right arm: Small amount of blood mh7 at PICC line site, no active bleeding, ROM: intact in all extremities, Circulation is intact in all extremities. Sensation intact. Compartment Syndrome exam of affected extremity: is normal. no pain, no numbness, no tingling, no sensation deficit, no palor, no weak pulses, Joints: All joints appear normal with full range of motion. Weight bearing: able to fully bear weight, without difficulty, Tendon exam: specific tendon testing normal through active and passive range of motion DVT Exam: no pain, no swelling, no tenderness, negative Homans' sign noted on exam, no appreciated bluish discoloration, no erythema, no increased warmth. 22:34 Skin: Warm, dry with normal turgor. Normal color with no rashes, no lesions, and no mh7 evidence of cellulitis. Vital Signs: 22:13 BP 158 / 101; Pulse 82; Resp 18; Temp 98.2(TE); Pulse Ox 99% on R/A; Weight 95.25 kg; ld1 Height 6 ft. 2 in. (187.96 cm); Pain 0/10; 22:55 BP 152 / 81; Pulse 86; Resp 20; Temp 98.4; Pulse Ox 99% on R/A; cc4 22:13 Body Mass Index 26.96 (95.25 kg, 187.96 cm) ld1 MDM: 22:54 Differential diagnosis: PICC line malfunction, PICC line bleeding. Data reviewed: vital mh7 signs, nurses notes. Data interpreted: Pulse oximetry: on room air is 99 %. Interpretation: normal. Counseling: I had a detailed discussion with the patient and/or guardian regarding: the historical points, exam findings, and any diagnostic results supporting the discharge/admit diagnosis, the presence of at least one elevated blood pressure reading (>120/80) during this emergency department visit, the need for outpatient follow up. Response to treatment: the patient's symptoms have resolved after treatment, the patient's blood pressure is in an acceptable range, mental status has returned to baseline, the patient no longer shows bradycardia, the patient is not short of breath, the patient is not tachycardic, the patient's pain is gone, the patient's temperature has normalized, the patient is now symptom free. ED course: Well-appearing, no acute distress, vital signs stable, neurovascular intact, no focal neurological deficits. PICC line site cleaned, redressed, and flushed by nurse. There is no active bleeding and line is working normally. Patient request to be discharged from the ED at this time. He has home health nurse who is coming tomorrow for visit.. 22:57 Patient medically screened. [facility] Administered Medications: No medications were administered Disposition Summary: 03/21/21 22:57 Discharge Ordered Location: Home [facility] Problem: [facility] Symptoms: have improved mh Condition: Stable mh Diagnosis - Bleeding, PICC line site, resolved mh7 Followup: [facility] - With: Private Physician - When: 1 - 2 days - Reason: Worsening of condition, Recheck today's complaints, Continuance of care, Re-evaluation by your physician Followup: [facility] - With: Emergency Department - When: As needed - Reason: Worsening of condition, Recheck today's complaints Discharge Instructions: - Discharge Summary Sheet [facility] - PICC Home Care Guide [facility] Forms: - Medication Reconciliation Form [facility] - Thank You Letter [facility] - Antibiotic Education [facility] - Prescription Opioid Use [facility] Signatures: Paulino Gutierrez MD MD [facility] Kenia Massey, RN RN ld1
--- NOTE | 2021-03-21 22:58 | ER ---
Nurse's Notes [facility] Name: Zeke Mackay Sr Age: 56 yrs Sex: Male : 1965 Arrival Date: 03/21/2021 Time: 21:56 Bed 17 Private MD: Diagnosis: Bleeding, PICC line site, resolved Presentation: 03/21 22:13 Chief complaint: Patient states: PICC line started bleeding today - using it for IV ld1 antibiotics for diabetic wound. Osteomyelitis in my right foot. Coronavirus screen: At this time, the client does not indicate any symptoms associated with coronavirus-19. Ebola Screen: No symptoms or risks identified at this time. Initial Sepsis Screen: Does the patient meet any 2 criteria? No. Patient's initial sepsis screen is negative. Does the patient have a suspected source of infection? No. Patient's initial sepsis screen is negative. Risk Assessment: Do you want to hurt yourself or someone else? Patient reports no desire to harm self or others. Onset of symptoms was March 21, 2021. 22:13 Method Of Arrival: Ambulatory ld1 22:13 Acuity: RICKEY 4 ld1 Triage Assessment: 22:14 General: Appears in no apparent distress. comfortable, Behavior is calm, cooperative, ld1 appropriate for age. Pain: Denies pain. Neuro: Level of Consciousness is awake, alert, obeys commands, Oriented to person, place, time, situation. Cardiovascular: Capillary refill < 3 seconds Patient's skin is warm and dry. Respiratory: Airway is patent Respiratory effort is even, unlabored, Respiratory pattern is regular, symmetrical. GI: Abdomen is flat, non-distended. : No signs and/or symptoms were reported regarding the genitourinary system. Derm: No signs and/or symptoms reported regarding the dermatologic system. Musculoskeletal: No signs and/or symptoms reported regarding the musculoskeletal system. 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 - Social history:: Smoking status: Patient denies any tobacco usage or history of. Patient uses alcohol, occasionally. Screenin:20 Abuse screen: Denies threats or abuse. Nutritional screening: No deficits noted. cc4 Tuberculosis screening: No symptoms or risk factors identified. Fall Risk None identified. Assessment: 20:20 Derm: Small to moderate amount bleeding noted right upper inner arm PICC line site cc4 seeping around edges of intact dressing; denies injuring site or pulling on PICC line. 22:20 General: Appears in no apparent distress. Behavior is calm, cooperative. Pain: Denies cc4 pain. Neuro: No deficits noted. Level of Consciousness is awake, alert, obeys commands, Oriented to person, place, time, situation. 22:25 Reassessment: Patient appears in no apparent distress at this time. Sm to moderate cc4 amount bleeding noted right upper inner arm PICC line seeping out of intact dressing to site; Dr. Gutierrez in to see; dressing removed with no active bleeding noted of PICC line insertion site; no signs/symptoms of infection noted (no swelling/redness); arm cleaned with sterile saline using sterile procedure \T\ redressed with sterile central line dressing kit, dsei. well. 22:55 Reassessment: Patient appears in no apparent distress at this time. No bleeding noted cc4 of PICC line site right upper inner arm; reports home health nurse will be visiting in am; VSS. Vital Signs: 22:13 BP 158 / 101; Pulse 82; Resp 18; Temp 98.2(TE); Pulse Ox 99% on R/A; Weight 95.25 kg; ld1 Height 6 ft. 2 in. (187.96 cm); Pain 0/10; 22:55 BP 152 / 81; Pulse 86; Resp 20; Temp 98.4; Pulse Ox 99% on R/A; cc4 22:13 Body Mass Index 26.96 (95.25 kg, 187.96 cm) ld1 ED Course: 20:20 Patient has correct armband on for positive identification. Bed in low position. Call cc4 light in reach. Side rails up X 1. 21:56 Patient arrived in ED. cf2 22:14 Triage completed. ld1 22:14 Arm band placed on left wrist. ld1 22:24 Paulino Gutierrez MD is Attending Physician. 7 22:48 Bharati Dent, RN is Primary Nurse. cc4 22:55 No provider procedures requiring assistance completed. cc4 22:55 Patient did not have IV access during this emergency room visit. cc4 Administered Medications: No medications were administered Outcome: 22:55 Discharged to home ambulatory. cc4 22:55 Condition: improved 22:55 Discharge instructions given to patient, Instructed on discharge instructions, follow up and referral plans. Demonstrated understanding of instructions, follow-up care. 22:57 Discharge ordered by . 7 23:17 Patient left the ED. cc4 Signatures: Elbert Smith cf2 Paulino Gutierrez MD MD 7 Kenia Massey, RN RN ld1 Bharati Dent, RN RN cc4
[2021-03-21 23:34] VITALS: O2SAT 99
[2021-03-21 23:35] VITALS: BP 152/81; TEMP 98.4
--- OUTSIDE RECORDS SUMMARY | 2021-04-01 08:33 | XMS REPORT | Continuity of Care Document ---
:1965 Author Organization [facility] t Address [address] [place] [address] Care Team Providers Name Role Phone Provider Primary Care Physician Unavailable SALTY Attending Clinician Unavailable Edith MARTINES Attending Clinician Unavailable Amanda Attending Clinician Jalen Attending Clinician Martinez Hunt Attending Clinician Eileen Villalta Attending Clinician Alistair Attending Clinician Dot MCCALLUM Attending Clinician Jem Darling DO Attending Clinician Bebeto GALINDO Attending Clinician Unavailable Doctor Unassigned, Name Attending Clinician Unavailable Nasreen MCCALLUM Attending Clinician NASREEN Attending Clinician Unavailable Fauzia Sparks MD Attending Clinician [phone] Eileen Villalta Admitting Clinician Payers Payer Name Policy Type Policy Number Effective Date Expiration Date S dayday BCBSTX PPO [id number] 2020 00:00:00 BCBSBCBS [id number] 2014 [place] CHOICE 00:00:00 Hospital PPO/FEDERAL EMPL PPOxxxxxxxxGQH J2014-Pres entPPO Problems Condition Condition Condition Status Onset Resolution Last Treating Co mments Source Name Details Category Date Date Treatment Clinician Date 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 2 ed type 2 1-05 ity of diabetes diabetes 00:00: [place] mellitus mellitus 00 Medica l with with Branch proteinuri proteinuri a or a or albuminuri albuminuri a a Right Right Disease Active Univers carotid carotid 1-05 ity of bruit bruit 00:00: [place] 00 Medical Branch Low serum Low serum Disease Active Uni vers testostero testostero 5-19 it y of ne level ne level 00:00: [place] 00 Medical Branch Screening Screening Disease Active Uni vers for other for other 930 ity of and and 00:00: [place] unspecifie unspecifie 00 Me dical d d Branch endocrine, endocrine, nutritiona nutritiona l, l, metabolic, metabolic, and and immunity immunity disorders disorders Type 2 Type 2 Disease Active Univers diabetes diabetes 02-16 ity of mellitus mellitus 00:00: [place] without without 00 Medical complicati complicati Br anch on on HLD HLD Disease Active Overview: Univer s (hyperlipi (hyperlipi 02-16 ICD10 it y of demia) demia) 00:00: Diagnosis [place] 00 Term 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 Metabolic Metabolic Disease Active Uni vers syndrome syndrome 02-16 ity of 00:00: [place] 00 Medical Branch Impotence Impotence Disease Active Uni vers of organic of organic 9 it y of origin origin 00:00: [place] 00 Medical [place] Allergies, Adverse Reactions, Alerts Allergy Allergy Status Severity Reaction(s) Onset Inactive Treating Comm ents Source Name Type Date Date Clinician NO KNOWN Drug Active Univers ALLERGIE Class ity of S [place] [facility] Family History Family Member Diagnosis Comments Start Date Stop Date Source Natural mother Stroke [facility] Social History Social Habit Start Date Stop Date Quantity Comments Source Exposure to Not sure [facility] SARS-CoV-2 [place] Medical (event) Branch Alcohol intake 2020-03-24 2020-03-24 Current University of 00:00:00 00:00:00 non-drinker of [facility] alcohol Branch (finding) Tobacco use and 2017-05-02 2017-05-02 Never used [facility] exposure 00:00:00 00:00:00 [birth year] MD Health 00:00:00 00:00:00 Smoking Status Start Date Stop Date Source Tobacco smoking consumption MD H ealth unknown Never smoker [facility] Medical Branch Medications Ordered Filled Start Stop Current Ordering Indication Dosage Frequency Signature Comments Components Source Medication Medication Date Date Medication? Clinician (SIG) Name Name MARCIN 2017-05 Yes [id number] INJECT 25 Univers 70/30 U-100 0-01 UNITS ity of INSULIN 100 00:00: [place] unit/mL 00 SKIN 30 Medical (70-30) MINUTES Branch suspension BEFORE BREAKFAST AND 20 UNITS 30 MINUTES BEFORE DINNER NOVOLIN 2017-05 Yes [id number] INJECT 25 Univers 70/30 U-100 0-01 UNITS ity of INSULIN 100 00:00: [place] THE [place] unit/mL 00 SKIN 30 Medical (70-30) MINUTES Branch suspension BEFORE BREAKFAST AND 20 UNITS 30 MINUTES BEFORE DINNER NOVOLIN 2017-05 Yes [id number] INJECT 25 Univers 70/30 U-100 0-01 UNITS ity of INSULIN 100 00:00: UND[place] THE [place] unit/mL 00 SKIN 30 Medical (70-30) MINUTES Branch suspension BEFORE BREAKFAST AND 20 UNITS 30 MINUTES BEFORE DINNER NOVOLIN 2017-05 Yes [id number] INJECT 25 Univers 70/30 U-100 0-01 UNITS ity of INSULIN 100 00:00: [place] THE [place] unit/mL 00 SKIN 30 Medical (70-30) MINUTES Branch suspension BEFORE BREAKFAST AND 20 UNITS 30 MINUTES BEFORE DINNER NOVOLIN 2017-05 Yes [id number] INJECT 25 Univers 70/30 U-100 0-01 UNITS ity of INSULIN 100 00:00: UNDER THE [place] unit/mL 00 SKIN 30 Medical (70-30) MINUTES Branch suspension BEFORE BREAKFAST AND 20 UNITS 30 MINUTES BEFORE DINNER NOVOLIN 2017-05 Yes [id number] INJECT 25 Univers 70/30 U-100 0-01 UNITS ity of INSULIN 100 00:00: UNDER THE [place] unit/mL 00 SKIN 30 Medical (70-30) MINUTES Branch suspension BEFORE BREAKFAST AND 20 UNITS 30 MINUTES BEFORE DINNER insulin NPH 2016-05 Yes Inject Meth gutierrez and regular 0-[address] human 20:39: skin. Hospita (HumuLIN 42 l 70/30) 100 unit/mL (70-30) injection metFORMIN 2016-05 Yes 500mg Q.5D Take 500 Met hodi (GLUCOPHAGE 0-[address] ) 500 mg 20:39: mouth 2 Hospit a tablet 42 (two) l times a day with meals. blood sugar Yes [id number] Use as Univers diagnostic 9-19 directed,e ity of (ONETOUCH 00:00: ight times [place] VERIO[place] 00 per day, Medical strip DX:E11.9 Branch atorvastati Yes [id number] 40mg Take 1 Univers n 40 mg 9-19 tablet by ity of tablet 00:00: mouth at [place] [address] bedtime. Medical Branch Lancets Yes [id number] Use as Uni vers (MICROLET 9-19 directed, ity o f LANCET) 00:00: TID, [facility] 00 DX:E11.9 Medical Branch Insulin Yes [id number] Use as Uni vers Syringe-Nee 9-19 directed, ity of dle U-100 00:00: BID, DX[place] (BD INSULIN 00 E11.9 Medical SYRINGE Branch ULTRA-FINE) 0.5 mL 31 gauge x 5/16 Syrg lisinopril Yes [id number] 10mg Take 1 U nivers 10 mg 9-19 tablet by ity of tablet 00:00: mouth [place] 00 daily. Medical Branch metFORMIN Yes [id number] 1000mg Take 1 Univers 1,000 mg 9-19 tablet by ity of tablet 00:00: mouth 2 [place] 00 (two) Medical times Branch daily with meals. blood sugar Yes [id number] Use as Univers diagnostic 9-19 directed,e ity of (ONETOUCH 00:00: [place] times [place] VER[place] 00 per day, Medical strip DX:E11.9 Branch atorvastati Yes [id number] 40mg Take 1 Univers n 40 mg 9-19 tablet by ity of tablet 00:00: mouth at [place] [address] bedtime. Medical Branch Lancets Yes [id number] Use as Uni vers (MICROLET 9-19 directed, ity o f LANCET) 00:00: TID, [facility] 00 DX:E11.9 Medical Branch Insulin Yes [id number] Use as Uni vers Syringe-Nee 9-19 directed, ity of dle U-100 00:00: BID, DX: [place] (BD INSULIN 00 E11.9 Medical SYRINGE Branch ULTRA-FINE) 0.5 mL 31 gauge x 5/16 Syrg lisinopril 2017- Yes [id number] 10mg Take 1 U nivers 10 mg 9-19 tablet by ity of tablet 00:00: mouth [place] 00 daily. Medical Branch metFORMIN Yes [id number] 1000mg Take 1 Univers 1,000 mg 9-19 tablet by ity of tablet 00:00: mouth 2 [place] (two) Medical times Branch daily with meals. blood sugar Yes [id number] Use as Univers diagnostic 9-19 directed,e ity of (ONETOUCH 00:00: ight times [place] VERIO[place] 00 per day, Medical strip DX:E11.9 Branch atorvastati Yes [id number] 40mg Take 1 Univers n 40 mg 9-19 tablet by ity of tablet 00:00: mouth at [place] 00 bedtime. Medical Branch Lancets Yes [id number] Use as Uni vers (MICROLET - directed, ity o f LANCET) 00:00: TID, [place] Mis 00 DX:E11.9 Medical Branch Insulin Yes [id number] Use as Uni vers Syringe-Nee 9-19 directed, ity of dle U-100 00:00: BID, DX: [place] (BD INSULIN 00 E11.9 Medical SYRINGE Branch ULTRA-FINE) 0.5 mL 31 gauge x 5/16 Syrg lisinopril Yes [id number] 10mg Take 1 U nivers 10 mg 9-19 tablet by ity of tablet 00:00: mouth [place] 00 daily. Medical Branch metFORMIN Yes [id number] 1000mg Take 1 Univers 1,000 mg 9-19 tablet by ity of tablet 00:00: mouth 2 [place] 00 (two) Medical times Branch daily with meals. blood sugar Yes [id number] Use as Univers diagnostic 9-19 directed,e ity of (ONETOUCH 00:00: [place] times [place] VERIO[place] 00 per day, Medical strip DX:E11.9 Branch atorvastati Yes [id number] 40mg Take 1 Univers n 40 mg 9-19 tablet by ity of tablet 00:00: mouth at [place] 00 bedtime. Medical Branch Lancets 2017-0 Yes [id number] Use as Uni vers (MICROLET 9-19 directed, ity o f LANCET) 00:00: TID, [facility] 00 DX:E11.9 Medical Branch Insulin Yes [id number] Use as Uni vers Syringe-Nee 9-19 directed, ity of dle U-100 00:00: BID, DX: [place] (BD INSULIN E11.9 Medical SYRINGE Branch ULTRA-FINE) 0.5 mL 31 gauge x 5/16 Syrg lisinopril Yes [id number] 10mg Take 1 U nivers 10 mg 9-19 tablet by ity of tablet 00:00: mouth [place] 00 daily. Medical Branch metFORMIN Yes [id number] 1000mg Take 1 Univers 1,000 mg 9-19 tablet by ity of tablet 00:00: mouth 2 [place] (two) Medical times [place] daily with meals. blood sugar Yes [id number] Use as Univers diagnostic 9-19 directed,e ity of (ONETOUCH 00:00: ight times [place] VERIO) 00 per day, Medical strip DX:E11.9 Branch atorvastati Yes [id number] 40mg Take 1 Univers n 40 mg 9-19 tablet by ity of tablet 00:00: mouth at [place] 00 bedtime. Medical Branch Lancets Yes [id number] Use as Uni vers (MICROLET 9-19 directed, ity o f LANCET) 00:00: TID, [facility] 00 DX:E11.9 Medical Branch Insulin Yes [id number] Use as Uni vers Syringe-Nee 9-19 directed, ity of dle U-100 00:00: BID, DX: [place] (BD INSULIN 00 E11.9 Medical SYRINGE Branch ULTRA-FINE) 0.5 mL 31 gauge x 5/16 Syrg lisinopril Yes [id number] 10mg Take 1 U nivers 10 mg 9-19 tablet by ity of tablet 00:00: mouth [place] 00 daily. Medical Branch metFORMIN Yes [id number] 1000mg Take 1 Univers 1,000 mg 9-19 tablet by ity of tablet 00:00: mouth 2 [place] (two) Medical times Branch daily with meals. blood sugar Yes [id number] Use as Univers diagnostic 9-19 directed,e ity of (ONETOUCH 00:00: ight times [place] VERIO) 00 per day, Medical strip DX:E11.9 Branch atorvastati Yes [id number] 40mg Take 1 Univers n 40 mg 9-19 tablet by ity of tablet 00:00: mouth at [place] 00 bedtime. Medical Branch Lancets Yes [id number] Use as Uni vers (MICROLET -19 directed, ity o f LANCET) 00:00: TID, [facility] 00 DX:E11.9 Medical Branch Insulin Yes [id number] Use as Uni vers Syringe-Nee 9-19 directed, ity of dle U-100 00:00: BID, DX: [place] (BD INSULIN 00 E11.9 Medical SYRINGE Branch ULTRA-FINE) 0.5 mL 31 gauge x 5/16 Syrg lisinopril Yes [id number] 10mg Take 1 U nivers 10 mg 9-19 tablet by ity of tablet 00:00: mouth [place] 00 daily. Medical Branch metFORMIN Yes [id number] 1000mg Take 1 Univers 1,000 mg 9-19 tablet by ity of tablet 00:00: mouth 2 [place] 00 (two) Medical times Branch daily with meals. Insulin Yes [id number] Bid with Un jayy Syringe-Nee 5-08 insulin. ity of dle U-100 00:00: Use as [place] (BD 00 directed Medical ULTRAFINE Branch INSULIN) 1 mL 31 x 5/16" Syrg Insulin 2014-0 Yes [id number] Bid with Un jayy Syringe-Nee 5-08 insulin. ity of dle U-100 00:00: Use as [place] (BD 00 directed Medical ULTRAFINE Branch INSULIN) 1 mL 31 x 5/16" Syrg Insulin 2014-0 Yes [id number] Bid with Un jayy Syringe-Nee 5-08 insulin. ity of dle U-100 00:00: Use as [place] (BD 00 directed Medical ULTRAFINE Branch INSULIN) 1 mL 31 x 5/16" Syrg Insulin 2014-0 Yes [id number] Bid with Un jayy Syringe-Nee 5-08 insulin. ity of dle U-100 00:00: Use as [place] (BD 00 directed Medical ULTRAFINE Branch INSULIN) 1 mL 31 x 5/16" Syrg Insulin 2014-0 Yes [id number] Bid with Un jayy Syringe-Nee 5-08 insulin. ity of dle U-100 00:00: Use as [place] (BD 00 directed Medical ULTRAFINE Branch INSULIN) 1 mL 31 x 5/16" Syrg Insulin 2014-0 Yes [id number] Bid with Un jayy Syringe-Nee 5-08 insulin. ity of dle U-100 00:00: Use as [place] (BD 00 directed Medical ULTRAFINE Branch INSULIN) 1 mL 31 x 5/16" Syrg sildenafil 2013-0 Yes [id number] 50mg Take 1 Tab Univers (VIAGRA) 50 3-17 by mouth ity of mg tablet 00:00: as needed [place] as 00 (before Medical sexual Branch activity). sildenafil 2013-0 Yes [id number] 50mg Take 1 Tab Univers (VIAGRA) 50 3-17 by mouth ity of mg tablet 00:00: as needed Shay as 00 (before Medical sexual Branch activity). sildenafil 2013-0 Yes [id number] 50mg Take 1 Tab Univers (VIAGRA) 50 3-17 by mouth ity of mg tablet 00:00: as needed Shay as 00 (before Medical sexual Branch activity). sildenafil 2013-0 Yes [id number] 50mg Take 1 Tab Univers (VIAGRA) 50 3-17 by mouth ity of mg tablet 00:00: as needed Shay as 00 (before Medical sexual Branch activity). sildenafil 2013-0 Yes [id number] 50mg Take 1 Tab Univers (VIAGRA) 50 3-17 by mouth ity of mg tablet 00:00: as needed Shay as 00 (before Medical sexual Branch activity). sildenafil 2013-0 Yes [id number] 50mg Take 1 Tab Univers (VIAGRA) 50 3-17 by mouth ity of mg tablet 00:00: as needed Shay as 00 (before Medical sexual Branch activity). Vital Signs Vital Name Observation Time Observation Value Comments Source Systolic blood 2020-03-24 19:44:00 142 mm[Hg] Univer sity of pressure [facility] Diastolic blood 2020-03-24 19:44:00 86 mm[Hg] Unive rsity of pressure [facility] Heart rate 2020-03-24 19:44:00 70 /min Universi ty of [place] [facility] [place] Body temperature 2020-03-24 19:44:00 36.61 Fiona Univ ersity of [facility] Respiratory rate 2020-03-24 19:44:00 18 /min Univ ersity of [facility] Body height 2020-03-24 19:44:00 188 cm Universi ty of [facility] Body weight 2020-03-24 19:44:00 95.618 kg Universi ty of [facility] BMI 2020-03-24 19:44:00 27.07 kg/m2 Universi ty of [facility] Systolic blood 2020-03-24 19:44:00 142 mm[Hg] Univer sity of pressure [facility] Diastolic blood 2020-03-24 19:44:00 86 mm[Hg] Unive rsity of pressure [facility] Heart rate 2020-03-24 19:44:00 70 /min Universi ty of [facility] Body temperature 2020-03-24 19:44:00 36.61 Fiona Univ ersity of [facility] Respiratory rate 2020-03-24 19:44:00 18 /min Univ ersity of [place] [facility] Body height 2020-03-24 19:44:00 188 cm Universi ty of [place] [facility] [place] Body weight 2020-03-24 19:44:00 95.618 kg Universi ty of [facility] BMI 2020-03-24 19:44:00 27.07 kg/m2 Universi ty of [facility] Procedures Procedure Date / Time Performing Clinician Source Performed MEDICATION CORRESPONDENCE 2020-04-07 06:01:00 Doctor Unassigned, [facility] [place] [facility] POCT URINALYSIS AUTO 2020-03-24 19:48:00 [facility] ASSIGNMENT OF BENEFITS 2020-03-24 19:30:30 Doctor Unassigned, [facility] Name [facility] Plan of Care Planned Activity Planned Date Details Comments Source Future Scheduled Test COVID-19 VACCINE (1) [facility] [code = COVID-19 VACCINE (1)] Future Scheduled Test COLONOSCOPY SCREENING [facility] [code = COLONOSCOPY SCREENING] Future Scheduled Test SHINGLES VACCINES (#1) [facility] [code = SHINGLES VACCINES (#1)] Future Scheduled Test INFLUENZA VACCINE [code [facility] = INFLUENZA VACCINE] Encounters Start End Encounter Admission Attending Care Care Encounter Source Date/Time Date/Time Type Type Clinicians Facility Department ID 2021-03-09 Inpatient U [facility] MED [id number] [facility]:02[facility] [facility] 2021-[facility] [facility] [id number] MD 01:03:[facility] 2021-01[facility] [facility] [id number] MD 01:04:[address] [facility] 2021-03-29 2021-03-29 Outpatient MHSE MHSE [id number] MH 13:30:00 13:30:[address] [facility] 2021-02-28 2021-02-28 Outpatient [facility] MED [id number] MH 13:00:00 13:00:[address] [facility] [facility] 2021-02-28 2021-02-28 EXT [facility] OP Amanda, EXT MSRDP 1.2.840.1 [id number] MD 00:00:00 00:00:00 [facility] LOCATION [id number] Health [id number] 2021-01-25 2021-01-25 Outpatient MHSE MED [id number] MH 08:34:00 08:34:[address] [facility] 2021-01-25 2021-01-25 Outpatient MHSE MHSE [id number] MH 08:00:00 08:00:[address] [facility] [facility] 2021-01-25 2021-01-25 EXT [facility] OP Jalen, EXT MSRDP [id number] [place] 00:00:00 00:00:00 [facility] LOCATION [id number] H ealth [id number] 2021-01-24 2021-01-24 EXT MH OP HuntChristopher Martinez EXT MSRDP [id number] MD 00:00:00 00:00:00 [facility] [id number] Health [id number] 2020-12-26 2020-12-26 Outpatient MHSE MHSE [id number] MH 08:00:00 08:00:00 [facility] 2020-12-26 2020-12-26 EXT MHH OP Jalen, EXT MSRDP [id number] [place] 00:00:00 00:00:00 [facility] LOCATION [id number] H ealth [id number] 2020-12-09 2020-12-09 Inpatient E [facility]SE MED [id number] MH 10:41[facility] 2020-11-16 2020-11-16 Outpatient MHSE MHSE [id number] MH 13:00:00 13:00:00 [facility] 2020-11-08 2020-11-08 EXT MHH OP Jalen, EXT MSRDP [id number] [place] 00:00:00 00:00:00 [facility] LOCATION [id number] H ealth [id number] 2020-11-07 2020-11-07 Emergency E MHBL MHBL [id number] MHBL 13:31:00 13:31:00 2020-10-31 2020-10-31 Outpatient MHBL MHBL [id number] MHBL 08:14:00 08:14:00 2020-10-28 2020-10-28 EXT MHH OP Alistair, EXT MSRDP [id number] [place] 00:00:00 00:00:00 [facility] LOCATION [id number] H ealth [id number] 2020-10-25 2020-10-25 EXT MHH OP Gauvain, EXT MSRDP [id number] [place] 12:44:43 14:14:43 Arnel LOCATION [id number] H ealth [id number] 2020-10-17 2020-10-16 Inpatient E MHBL MED [id number] MHBL 00:39:00 22:02:00 2020-07-30 2020-07-30 [facility] 1.2.840.114 [id number] 00:00:00 00:00:00 Outreach Emil PRIMARY [id number] Jem CARE [id number] PAVILLION [id number] 2020-07-30 2020-07-30 [facility] 1.2.840.114 [id number] Univers 00:00:00 00:00:00 Outreach Emil PRIMARY [id number] i ty of [facility] [id number] [place] [id number] [address] 2020-05-02 2020-05-02 Outpatient R [facility] [id number] Univers 14:30:00 14:30:00 BABAR [id number] [facility] 2020-05-02 2020-05-02 Outpatient R [facility] [id number] Univers 14:30:00 14:30:00 BABAR [facility] 2020-04-07 2020-04-07 Orders Doctor ROB 1.2.840.114 [id number] 00:00:00 00:00:00 Only Unassigned, BHANU [id number] [place] [facility] [id number] [id number] [facility] 2020-04-07 2020-04-07 Orders Doctor ROB 1.2.840.114 [id number] Univers 00:00:00 00:00:00 Only Unassigned, BHANU [id number] ity [place] [facility] [id number] Shay as [id number] [address] 2020-03-24 2020-03-24 Office [facility] 1.2.840.114 [id number] 13:31:05 13:59:57 Visit Koby Mariscal [id number] I[place] 4.2.7.2.686 Rona [id number] [address] 2020-03-24 2020-03-24 [facility] 1.2.840.114 [id number] [facility] 13:31:05 13:59:57 Visit Koby Mariscal [id number] i ty of [place] 4[place]2.7.2.686 [place] Professio [id number] Pr dical [address] 2020-03-24 2020-03-24 Outpatient R NASRE[facility] [id number] Univers 13:30:00 13:30:00 KOBY ity [facility] 2020-03-24 2020-03-24 [facility] [id number] Univers 13:30:00 13:30:00 [facility] 2020-03-24 2020-03-24 [facility] 1.2.840.114 [id number] 00:00:00 00:00:00 Secure [facility] [id number] Cancer [id number] Center - [id number] [place] [id number] 2020-03-24 2020-03-24 Orders Doctor ROB 1.2.840.114 [id number] Univers 00:00:00 00:00:00 Only Unassigned, BHANU [id number] ity of [place] [facility] [id number] Shay as [id number] [address] 2020-03-24 2020-03-24 Patient Nasreen [facility] 1.2.840.114 [id number] Univers 00:00:00 00:00:00 [facility] [id number] ity of [place] [id number] - [id number] Med ical [address] 2020-03-24 2020-03-24 Telephone Luis Manuel 1.2.840.1 [id number] Methodi 00:00:00 00:00:00 [place], [address].1.[address] Jon[address] Fauzia 3.430.2.7 Ho spita .[id number] l .8 Results Test Description Test Time Test Comments Results Result Comments Source POCT URINALYSIS, INSTRUMENT 2020-03-24 19:50:00 Test Item Value Reference Range Interpretation Comme nts POCT U SP GRAV (test code = 3255) 1.015 mg/dl 1.005-1.025 POCT PH U (test code = 3254) 5.0 mg/dl 5-8 POCT U LEUK EST (test code = 3263) negative Negative - Negative POCT U NIT (test code = 3262) negative Negative - Negative POCT U PROT (test code = 3259) negative Negative - Negative POCT U GLU (test code = 3256) Negative - Negative POCT U KETONE (test code = 3258) negative Negative - Negative POCT U UROBILI (test code = 3260) 0.2 mg/dl 0.2-1 POCT U BILI (test code = 3261) negative Negative - Negative POCT U BLD (test code = 3257) trace Negative - Negative POCT U COLOR (test code = 3266) yellow POCT U APPEAR (test code = 3267) [facility] [id number] 19:50:00 Test Item Value Reference Range Interpretation Comments POCT U SP GRAV (test code = 1.015 mg/dl 1.005-1.025 5) POCT PH U (test code = 3254) 5.0 mg/dl 5-8 POCT U LEUK EST (test code = negative Negative - Negative 3263) POCT U NIT (test code = 3262) negative Negative - Negative POCT U PROT (test code = negative Negative - Negative 3259) POCT U GLU (test code = 3256) Negative - Negative POCT U KETONE (test code = negative Negative - Negative 3258) POCT U UROBILI (test code = 0.2 mg/dl 0.2-1 3260) POCT U BILI (test code = negative Negative - Negative 3261) POCT U BLD (test code = 3257) trace Negative - Negative POCT U COLOR (test code = yellow 3266) POCT U APPEAR (test code = clear 3267) [facility]
== END 2021-03-21 23:17 | disposition home or self-care (01) ==
LOC: ER 21:52
DX: T82.838A Hemorrhage due to vascular prosthetic devices, implants and grafts, initial encounter (principal)
CPT/HCPCS: 99281

== ENCOUNTER 2023-07-17 22:44 | Observation (INO) | payer BC ==
[2023-07-17 23:12] LABS: Absolute Lymphocytes (CBC) 2.2 K/uL (0.7-4.9); Hematocrit 43.3 % (39.6-49.0); Lymphocytes % 28.9 % (15.3-44.8); MCV 77.1 fL (80-100); MPV 7.7 fL (7.6-11.3); Platelets 300 thou/uL (152-406); RBC Red Blood Cell Count 5.61 M/uL (4.33-5.43)
[2023-07-17] MEDS ORDERED: ONDANSETRON 4 MG/2 ML VIAL ONE (23:15)
[2023-07-17] MEDS ORDERED: KETOROLAC 30 MG/ML INJ ONE (23:15)
[2023-07-17] MEDS ORDERED: METOCLOPRAMIDE 10 MG/2mL INJ ONE (23:16)
[2023-07-17] MEDS ORDERED: NA CHLORIDE 0.9% 1,000 ML ONE (23:16)
[2023-07-17] MEDS ORDERED: MORPHINE 4 MG/ML SYR ONE (23:16)
[2023-07-17 23:43] LABS: Albumin 3.7 g/dL (3.4-5.0); Bilirubin Direct 0.1 mg/dL (0-0.2); Bilirubin Indirect, Calculated 0.2 mg/dL (0.2-0.8); Bilirubin Total 0.3 mg/dL (0.2-1.0); Potassium 3.5 mEq/L (3.5-5.1); Protein, Total 7.7 g/dL (6.4-8.2)
[2023-07-18] MEDS ORDERED: INSULIN REGULAR (HUMAN) 100 UNIT/ML ONE ×2 (00:02→07:47)
[2023-07-18 00:17] LABS: SARS-CoV-2 Antigen Rapid Res Negative (Negative)
[2023-07-18] MEDS ORDERED: DIPHENHYDRAMINE 50 MG/ML VIAL ONE (00:57)
--- NOTE | 2023-07-18 00:57 | ER ---
Nurse's Notes [facility] Name: Zeke Mackay Sr Age: 58 yrs Sex: Male : 1965 Arrival Date: 07/17/2023 Time: 22:44 Bed 19 Private MD: Diagnosis: Migraine without aura, not intractable;Acute pancreatitis, elevated lipase, uncontrolled diabetes type 2 with hyperglycemia ;Type 2 diabetes mellitus with hyperglycemia;Left renal mass, intractable headache Presentation: 07/17 22:50 Chief complaint: Patient states: abdominal pain, nausea and vomiting with a really bad vc1 headache. Coronavirus screen: Vaccine status: Client denies travel out of the [place] in the last 14 days. headache, nausea, vomiting. Client presents with at least one sign or symptom that may indicate coronavirus-19. Provider contacted for isolation considerations. Ebola Screen: Patient negative for fever greater than or equal to 101.5 degrees Fahrenheit, and additional compatible Ebola Virus Disease symptoms Patient denies exposure to infectious person. Patient denies travel to an Ebola-affected area in the 21 days before illness onset. No symptoms or risks identified at this time. Initial Sepsis Screen: Does the patient meet any 2 criteria? No. Patient's initial sepsis screen is negative. Does the patient have a suspected source of infection? No. Patient's initial sepsis screen is negative. Risk Assessment: Do you want to hurt yourself or someone else? Patient reports no desire to harm self or others. Onset of symptoms was July 17, 2023. 22:50 Method Of Arrival: Ambulatory vc1 22:50 Acuity: RICKEY 3 vc1 Triage Assessment: 22:53 General: Appears in no apparent distress. uncomfortable, Behavior is flat. Pain: vc1 Complains of pain in forehead Pain does not radiate. Pain currently is 10 out of 10 on a pain scale. Quality of pain is described as pressure, Pain began this morning Noted to be grimacing, quiet/stoic. EENT: No deficits noted. No signs and/or symptoms were reported regarding the EENT system. Neuro: Level of Consciousness is awake, alert, obeys commands, Oriented to person, place, time, situation, Appropriate for age. Cardiovascular: No deficits noted. Respiratory: Airway is patent Respiratory effort is even, unlabored, Respiratory pattern is regular, symmetrical. GI: Reports lower abdominal pain, nausea, vomiting. : No deficits noted. No signs and/or symptoms were reported regarding the genitourinary system. Derm: No deficits noted. No signs and/or symptoms reported regarding the dermatologic system. Musculoskeletal: No deficits noted. No signs and/or symptoms reported regarding the musculoskeletal system. 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 - Social history:: Smoking status: Patient denies any tobacco usage or history of. - Family history:: not pertinent. Screenin:08 [facility] ED Fall Risk Assessment (Adult) History of falling in the last 3 months, rv including since admission No falls in past 3 months (0 pts) Score/Fall Risk Level 0 - 2 = Low Risk Oriented to surroundings, Maintained a safe environment, Educated pt \T\ family on fall prevention, incl call for assistance when getting out of bed, Assessed \T\ reinforced patient's understanding of fall precautions. Abuse screen: Denies threats or abuse. Denies injuries from another. Nutritional screening: No deficits noted. Tuberculosis screening: No symptoms or risk factors identified. Assessment: 22:50 General: Appears uncomfortable, Behavior is calm, cooperative. Pain: Complains of pain ha1 in forehead Pain does not radiate. Pain currently is 7 out of 10 on a pain scale. Quality of pain is described as pressure, throbbing. Neuro: Level of Consciousness is awake, alert, obeys commands, Oriented to person, place, time, situation. Neuro: Reports headache frontal area. Cardiovascular: Capillary refill < 3 seconds Patient's skin is warm and dry. Respiratory: Airway is patent Respiratory effort is even, unlabored, Respiratory pattern is regular, symmetrical. GI: Abdomen is round non-distended, Bowel sounds present X 4 quads. Reports nausea, vomiting. : No signs and/or symptoms were reported regarding the genitourinary system. Derm: Skin is pink, warm \T\ dry. Musculoskeletal: Circulation, motion, and sensation intact. Range of motion: intact in all extremities. 23:45 Reassessment: Patient and/or family updated on plan of care and expected duration. Pain ha1 level reassessed. Patient is alert, oriented x 3, equal unlabored respirations, skin warm/dry/pink. pain 7/10. notified provider. 01:00 Reassessment: Patient and/or family updated on plan of care and expected duration. Pain ha1 level reassessed. Patient is alert, oriented x 3, equal unlabored respirations, skin warm/dry/pink. Patient states feeling better. 02:00 Reassessment: Patient and/or family updated on plan of care and expected duration. Pain ha1 level reassessed. Patient is alert, oriented x 3, equal unlabored respirations, skin warm/dry/pink. pain 3/10 Patient states feeling better. Patient states symptoms have improved. 06:39 Reassessment: attempted to give report. ha1 06:54 Reassessment: report given to ARTURO Triplett. [facility] Vital Signs: 07/17 22:50 Pulse 80; Resp 18; Temp 97.5; Pulse Ox 100% ; Weight 95.25 kg; Height 6 ft. 2 in. ; vc1 Pain 6/10; 22:56 BP 160 / 118; vc1 23:30 BP 195 / 104; Pulse 72; Resp 17 S; Pulse Ox 98% on R/A; ha1 00:30 BP 188 / 90; Pulse 71; Resp 17 S; Pulse Ox 98% on R/A; ha1 01:00 BP 195 / 92; Pulse 76; Resp 17 S; Pulse Ox 98% on R/A; ha1 01:30 BP 164 / 79; Pulse 81; Resp 17 S; Pulse Ox 97% on R/A; ha1 02:00 BP 137 / 60; Pulse 80; Resp 17 S; Pulse Ox 97% on R/A; ha1 07/17 22:50 Body Mass Index 26.96 (95.25 kg, 187.96 cm) vc1 07/17 22:50 Pain Scale: Adult vc1 [place] Coma Score: 00:45 Eye Response: spontaneous(4). Motor Response: obeys commands(6). Verbal Response: sp4 oriented(5). Total: 15. NIH Stroke Scale Scores: 00:45 NIHSS Score: 0 sp4 ED Course: 07/17 22:47 Patient arrived in ED. [id number] 22:50 Patient has correct armband on for positive identification. Placed in gown. Bed in low ha1 position. Call light in reach. Side rails up X 1. Adult w/ patient. 22:52 Triage completed. vc1 22:52 Arm band placed on left wrist. vc1 22:54 Jag Horvath MD is Attending Physician. sp4 23:08 No provider procedures requiring assistance completed. Inserted saline lock: 20 gauge rv in right forearm, using aseptic technique. Blood collected. 23:09 Moni Douglas, ARTURO is Primary Nurse. ha1 23:10 Basic Metabolic Panel Sent. ha1 23:10 CBC with Diff Sent. ha1 23:10 LFT's Sent. ha1 23:10 NT PRO-BNP Sent. ha1 23:[address] via wheelchair. eh4 23:38 CT completed. Patient tolerated procedure well. eh4 23:45 Patient moved back from CT. eh4 23:48 Influenza Screen (a \T\ B) Sent. ha1 23:48 SARS RAPID Sent. ha1 23:54 CT Head Brain wo Cont In Process Unspecified. EDMS 02 00:55 Daniel Best is Hospitalizing Provider. sp4 01:[address] via stretcher. eh4 01:22 CT completed. Patient tolerated procedure well. Patient moved back from CT. eh4 01:38 CT Abd/Pelvis - IV Contrast Only In Process Unspecified. EDMS 02:50 Provided Education on: need for admit. ha1 02:50 Patient admitted, IV remains in place. ha1 Administered Medications: 07/17 23:11 Drug: NS 0.9% IV 1000 ml IV at 1 bolus Per protocol; 1000 mL bolus Route: IV; Rate: 1 ha1 bolus; Site: right forearm; 01:00 Follow up: Response: No adverse reaction; IV Status: Completed infusion; IV Intake: ha1 1000ml 07/17 23:11 Drug: Ondansetron IVP 8 mg IVP once; over 2 minutes Route: IVP; Site: left forearm; 1 23:30 Follow up: Response: No adverse reaction; Marked relief of symptoms ha1 23:13 Drug: metoCLOPramide IVP 10 mg IVP once; over 1 to 2 minutes Route: IVP; Site: right ha1 forearm; 23:45 Follow up: Response: No adverse reaction; Marked relief of symptoms ha1 23:15 Drug: morphine IVP or IV 4 mg IVP once over 4 mins Route: IVP; Infused Over: 4 mins; ha1 Site: right forearm; 23:45 Follow up: Response: No adverse reaction; Pain is unchanged, physician notified; RASS: ha1 Alert and Calm (0) 23:17 Drug: Ketorolac IVP 30 mg IVP once Route: IVP; Site: right forearm; ha1 23:40 Follow up: Response: No adverse reaction; Pain is decreased ha1 00:00 Drug: Insulin Regular Human IVP 8 units IVP once {Co-Signature: as9 (Eric Baird [facility] RN).} Route: IVP; Site: right forearm; 01:10 Follow up: Response: No adverse reaction; Marked relief of symptoms; Blood sugar is ha1 lowered 00:58 Drug: NS 0.9% IV 1000 ml IV at 250 ml/hr continuous Route: IV; Rate: 250 ml/hr; Site: ha right forearm; 05:55 Follow up: Response: No adverse reaction; IV Status: Completed infusion; IV Intake: ha1 1000ml 00:58 Drug: diphenhydrAMINE IVP 25 mg IVP once Route: IVP; Site: right forearm; ha1 01:30 Follow up: Response: No adverse reaction; Marked relief of symptoms ha1 01:00 Drug: hydrALAZINE IVP 10 mg IVP once Route: IVP; Site: right forearm; ha1 02:00 Follow up: Response: No adverse reaction; Marked relief of symptoms; Blood pressure is ha1 lowered 01:02 Drug: morphine IVP or IV 4 mg IVP once over 4 mins Route: IVP; Infused Over: 4 mins; ha1 Site: right forearm; 01:30 Follow up: Response: No adverse reaction; Pain is decreased; RASS: Alert and Calm (0) ha1 Medication: 07/17 23:08 VIS not applicable for this client. rv Intake: 01:00 IV: 1000ml; Total: 1000ml. ha1 05:55 IV: 1000ml; Total: 2000ml. ha1 Outcome: 00:56 Decision to Hospitalize by Provider. sp4 02:50 Admitted to ER Hold. Please see [facility] for further documentation. ha1 02:50 Condition: stable 02:50 Discharge instructions given to patient, Instructed on the need for admit, Demonstrated understanding of instructions, 08:01 Patient left the ED. NIH Stroke Scale - NIH Stroke Score Date: 07/18/2023 Time: 00:45 Total Score = 0 10. Dysarthria (speech clarity - read or repeat words) - 0(Normal) 11. Extinction and Inattention (visual/tactile/auditory/spatial/personal) - 0(No abnormality) 1a. Level of Consciousness (LOC) - 0(Alert) 1b. Level of Consciousness (LOC) (Month \T\ Age) - 0(Both) 1c. LOC Commands (Open \T\ Closes Eyes/Glove Parts Inspector) - 0(Both) 2. Best Gaze (Lateral Gaze Paresis) - 0(Normal) 3. Visual Field Loss - 0(No visual loss) 4. Facial Palsy - 0(Normal) 5a. Left Arm: Motor (10-second hold) - 0(No drift) 5b. Right Arm: Motor (10-second hold) - 0(No drift) 6a. Left Leg: Motor (5-second hold - always test supine) - 0(No drift) 6b. Right Leg: Motor (5-second hold - always test supine) - 0(No drift) 7. Limb Ataxia (finger/nose \T\ heel/bland - test with eyes open) - 0(Absent) 8. Sensory Loss (pinprick arms/legs/face) - 0(Normal) 9. Best Language: Aphasia (description/naming/reading) - 0(No aphasia) Initials: sp4 Signatures: Dispatcher [employer] [facility] Yohana Holden RN RN Joaquim Cotto RN RN rv Jeffries, Jennifer [id number] Jacque Gamboa RN RN 1 Moni Douglas RN RN ha1 Tree Holden Jag White MD MD sp4 Eric Baird RN as9
--- NOTE | 2023-07-18 00:57 | EDPHYS ---
Physician Documentation [facility] Name: Zeke Mackay Sr Age: 58 yrs Sex: Male : 1965 Arrival Date: 07/17/2023 Time: 22:44 Bed 19 Private MD: ED Physician Jag Horvath HPI: 07/17 22:54 This 58 yrs old Male presents to ER via Ambulatory with complaints of sp4 Nausea/Vomiting, Headache. 23:14 58-year-old male past medical history diabetes hypertension hypothyroidism history of sp4 right foot infection and cervical stenosis, presents with onset moderate to severe left-sided headache starting today associated with photophobia, 1 episode of vomiting. Patient states headache is moderate to severe. Persistent left-sided. . 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 - Social history:: Smoking status: Patient denies any tobacco usage or history of. - Family history:: not pertinent. ROS: 23:14 Constitutional: Negative for fever, chills, and weight loss, positive for headache and sp4 vomiting 23:14 All other systems are negative, Exam: 23:14 Constitutional: This is a well developed, well nourished patient who is awake, alert, sp4 and in mild distress secondary to headache Head/Face: Normocephalic, atraumatic. Eyes: Pupils equal round and reactive to light, extra-ocular motions intact. Lids and lashes normal. Conjunctiva and sclera are not injected. Cornea within normal limits. Periorbital areas with no swelling, redness, or edema. ENT: Nares patent. No nasal discharge, no septal abnormalities noted. Tympanic membranes are normal and external auditory canals are clear. Oropharynx with no redness, swelling, or masses, exudates, or evidence of obstruction, uvula midline. Mucous membranes moist. Neck: Trachea midline, no thyromegaly or masses palpated, and no cervical lymphadenopathy. Supple, full range of motion without nuchal rigidity, or vertebral point tenderness. Chest/axilla: Normal chest wall appearance and motion. Nontender with no deformity. No lesions are appreciated. Cardiovascular: Regular rate and rhythm with a normal S1 and S2. No gallops, murmurs, or rubs. Normal PMI, no JVD. No pulse deficits. Respiratory: Lungs have equal breath sounds bilaterally, clear to auscultation and percussion. No rales, rhonchi or wheezes noted. No increased work of breathing, no retractions or nasal flaring. Abdomen/GI: Soft, with normal bowel sounds. No distension or tympany. No guarding or rebound. No evidence of tenderness throughout. Back: No spinal tenderness. No costovertebral tenderness. Skin: Warm, dry with normal turgor. Normal color with no rashes, no lesions, and no evidence of cellulitis. MS/ Extremity: Pulses equal, no cyanosis. Neurovascular intact. Full, normal range of motion. Neuro: Awake and alert, GCS 15, oriented to person, place, time, and situation. Cranial nerves II-XII grossly intact. Motor strength 5/5 in all extremities. Sensory grossly intact. Psych: Awake, alert, with orientation to person, place and time. Behavior, mood, and affect are within normal limits Vital Signs: 22:50 Pulse 80; Resp 18; Temp 97.5; Pulse Ox 100% ; Weight 95.25 kg; Height 6 ft. 2 in. ; vc1 Pain 6/10; 22:56 BP 160 / 118; vc1 23:30 BP 195 / 104; Pulse 72; Resp 17 S; Pulse Ox 98% on R/A; ha1 00:30 BP 188 / 90; Pulse 71; Resp 17 S; Pulse Ox 98% on R/A; ha1 01:00 BP 195 / 92; Pulse 76; Resp 17 S; Pulse Ox 98% on R/A; ha1 01:30 BP 164 / 79; Pulse 81; Resp 17 S; Pulse Ox 97% on R/A; ha1 02:00 BP 137 / 60; Pulse 80; Resp 17 S; Pulse Ox 97% on R/A; ha1 07/17 22:50 Body Mass Index 26.96 (95.25 kg, 187.96 cm) vc1 07/17 22:50 Pain Scale: Adult vc1 NIH Stroke Scale Scores: 00:45 NIHSS Score: 0 sp4 Mckinney Coma Score: 00:45 Eye Response: spontaneous(4). Motor Response: obeys commands(6). Verbal Response: sp4 oriented(5). Total: 15. MDM: 07/17 22:56 Patient medically screened. sp4 00:45 ED course: CLINICAL HISTORY: 58 years Male; HEADACHE; Bed Name: 19 TECHNIQUE: sp4 Noncontrast CT head. All CT scans at this facility use dose modulation, iterative reconstruction, and/or weight based dosing when appropriate to reduce radiation dose to as low as reasonably achievable. COMPARISON: None. FINDINGS: Parenchyma: No acute hemorrhage, large territorial infarction, or mass effect. Ventricles and extra-axial spaces: Appropriate for age. Visualized paranasal sinuses: Mild bilateral ethmoid sinus mucosal thickening. Mastoid air cells: Clear. Bones: No acute focal abnormality. Additional comment: Bilateral lens replacement. IMPRESSION: No acute intracranial findings. . 00:54 Differential diagnosis: Nonspecific abd pain, gastritis, pancreatitis, viral sp4 gastroenteritis, gastroenteritis. Data reviewed: vital signs, nurses notes, old medical records, lab test result(s), radiologic studies. Consideration of Admission/Observation Patient was admitted/placed on observation. Escalation of care including admission/observation considered. Management of patient was discussed with the following: Hospitalist: Nasir MCCALLUM . ED course: Patient has elevated lipase indicative of acute pancreatitis. Patient denies any abdominal pain but based on lipase elevation will order CT abdomen pelvis. . 02:59 ED course: EXAM DESCRIPTION: CTABDOMEN AND PELVIS WITH CONTRAST CLINICAL HISTORY: acute sp4 pancreatitis COMPARISON: None Available. TECHNIQUE: CT of the abdomen and pelvis performed following IV administration of iodinated contrast. This exam was performed according to our departmental dose-optimization program, which includes automated exposure control, adjustment of the mA and/or kV according to patient size and/or use of iterative reconstruction technique. FINDINGS: Lung Bases: Mild bilateral dependent atelectasis. Bones: Chronic appearing L1 and L3 compression deformities. Multilevel endplate spondylosis and facet arthropathy. Osteoarthritic change of the hips. Abdomen: Liver: Hepatomegaly. Gallbladder: Calcified gallstones. Spleen, Pancreas, and Adrenal Glands: Splenomegaly. The pancreas and adrenal glands are unremarkable. No peripancreatic fat stranding. Kidneys: No hydronephrosis or obstructing calculus. Nonspecific perinephric fat stranding. 2.4 cm enhancing mass arising from the superior pole of the left kidney. Vasculature: Aortoiliac atherosclerosis. IVC is unremarkable. The portal vein is patent. The proximal visceral and renal arteries are patent. Stomach: Mild wall thickening of the stomach with mild distention. Other: No free intraperitoneal air. No free fluid or lymphadenopathy. Pelvis: Bladder: Wall thickening of the urinary bladder with perivesical inflammatory change. Bowel: No dilated loops of large or small bowel. Large amount stool in the rectum and sigmoid colon. Appendix: Not visualized Pelvis:Enlarged prostate. IMPRESSION: 1. Wall thickening of the urinary bladder with perivesical inflammatory change. These findings could be seen with cystitis. 2. 2.4 cm enhancing mass arising from the superior pole of the left kidney concerning for renal cell carcinoma. 3. Cholelithiasis. 4. Splenomegaly. 5. Hepatomegaly. 6. Mild wall thickening of the stomach with mild distention. These findings could be seen with gastritis. 7. Enlarged prostate. 8. Large amount stool in the rectum and sigmoid colon. 9. No CT evidence of acute pancreatitis. Electronically signed by: Sami Gallegos DO 07/18/2023. ED course: Patient CT has revealed wall thickening of the urinary bladder, 2.4 cm mass superior pole left kidney concerning for renal cell carcinoma. Also cholelithiasis, splenomegaly, hepatomegaly, mild wall thickening of the stomach, enlarged prostate, large amount of stool, no evidence of acute pancreatitis. . 03:08 ED course: Incidental findings include a left renal mass concerning for renal cell sp4 carcinoma 2.4 cm in diameter. Patient was referred to Dr. Kate Jiménez and Dr. Del Toro with Oncology. Patient was given contact information for Dr. Del Toro and Dr. Jiménez. Patient was advised to see these physicians for evaluation of incidental finding of left renal mass within the next 30 days.. 07/17 22:55 Order name: Basic Metabolic Panel; Complete Time: 23:47 sp4 07/17 22:55 Order name: CBC with Diff; Complete Time: 23:47 sp4 07/17 22:55 Order name: LFT's; Complete Time: 23:47 sp4 07/17 22:55 Order name: NT PRO-BNP; Complete Time: 23:47 sp4 07/17 22:55 Order name: Lipase; Complete Time: 23:47 sp4 07/17 22:55 Order name: Urinalysis W/Microscopic; Complete Time: 03:31 sp4 07/17 22:55 Order name: SARS RAPID; Complete Time: 00:44 sp4 07/17 22:55 Order name: Influenza Screen (a \T\ B); Complete Time: 00:44 sp4 07/17 23:14 Order name: Glucose, Ancillary Testing; Complete Time: 23:47 EDMS 00:54 Order name: TSH sp4 00:54 Order name: T4 Free sp4 00:54 Order name: Urinalysis W/Microscopic; Complete Time: 03:31 sp4 01:37 Order name: Glucose, Ancillary Testing; Complete Time: 03:01 EDMS 05:18 Order name: Lipase EDMS 07:55 Order name: Glucose, Ancillary Testing EDMS 07/17 23:10 Order name: CT Head Brain wo Cont sp4 00:51 Order name: CT Abd/Pelvis - IV Contrast Only sp4 07/17 22:55 Order name: IV Saline Lock; Complete Time: 23:10 sp4 07/17 22:55 Order name: Labs collected and sent; Complete Time: 23:10 sp4 07/17 22:55 Order name: O2 Per Protocol; Complete Time: 23:10 sp4 07/17 22:55 Order name: O2 Sat Monitoring; Complete Time: 23:10 sp4 Administered Medications: 07/17 23:11 Drug: NS 0.9% IV 1000 ml IV at 1 bolus Per protocol; 1000 mL bolus Route: IV; Rate: 1 ha1 bolus; Site: right forearm; 01:00 Follow up: Response: No adverse reaction; IV Status: Completed infusion; IV Intake: ha1 1000ml 07/17 23:11 Drug: Ondansetron IVP 8 mg IVP once; over 2 minutes Route: IVP; Site: left forearm; ha1 23:30 Follow up: Response: No adverse reaction; Marked relief of symptoms ha1 23:13 Drug: metoCLOPramide IVP 10 mg IVP once; over 1 to 2 minutes Route: IVP; Site: right ha1 forearm; 23:45 Follow up: Response: No adverse reaction; Marked relief of symptoms ha1 23:15 Drug: morphine IVP or IV 4 mg IVP once over 4 mins Route: IVP; Infused Over: 4 mins; ha1 Site: right forearm; 23:45 Follow up: Response: No adverse reaction; Pain is unchanged, physician notified; RASS: ha1 Alert and Calm (0) 23:17 Drug: Ketorolac IVP 30 mg IVP once Route: IVP; Site: right forearm; ha1 23:40 Follow up: Response: No adverse reaction; Pain is decreased 1 00:00 Drug: Insulin Regular Human IVP 8 units IVP once {Co-Signature: as9 (Eric Baird 1 RN).} Route: IVP; Site: right forearm; 01:10 Follow up: Response: No adverse reaction; Marked relief of symptoms; Blood sugar is ha1 lowered 00:58 Drug: NS 0.9% IV 1000 ml IV at 250 ml/hr continuous Route: IV; Rate: 250 ml/hr; Site: ha right forearm; 05:55 Follow up: Response: No adverse reaction; IV Status: Completed infusion; IV Intake: ha1 1000ml 00:58 Drug: diphenhydrAMINE IVP 25 mg IVP once Route: IVP; Site: right forearm; ha1 01:30 Follow up: Response: No adverse reaction; Marked relief of symptoms ha1 01:00 Drug: hydrALAZINE IVP 10 mg IVP once Route: IVP; Site: right forearm; ha1 02:00 Follow up: Response: No adverse reaction; Marked relief of symptoms; Blood pressure is ha1 lowered 01:02 Drug: morphine IVP or IV 4 mg IVP once over 4 mins Route: IVP; Infused Over: 4 mins; ha1 Site: right forearm; 01:30 Follow up: Response: No adverse reaction; Pain is decreased; RASS: Alert and Calm (0) ha1 Disposition Summary: 07/18/23 00:56 Hospitalization Ordered Notes: Hospitalization Status: Inpatient Admission sp4 Provider: Daniel Best Condition: Stable sp4 Problem: new sp4 Symptoms: have improved sp4 Bed/Room Type: Standard sp4 Location: Telemetry/MedSurg (Inpatient)(07/18/23 06:30) vc1 Room Assignment: [facility](07/18/23 06:30) vc1 Diagnosis - Migraine without aura, not intractable sp4 - Acute pancreatitis, elevated lipase, uncontrolled diabetes type 2 with sp4 hyperglycemia - Type 2 diabetes mellitus with hyperglycemia sp4 - Left renal mass, intractable headache sp4 Forms: - Medication Reconciliation Form sp4 - SBAR form sp4 - Leadership Thank You Letter sp4 NIH Stroke Scale - NIH Stroke Score Date: 07/18/2023 Time: 00:45 Total Score = 0 10. Dysarthria (speech clarity - read or repeat words) - 0(Normal) 11. Extinction and Inattention (visual/tactile/auditory/spatial/personal) - 0(No abnormality) 1a. Level of Consciousness (LOC) - 0(Alert) 1b. Level of Consciousness (LOC) (Month \T\ Age) - 0(Both) 1c. LOC Commands (Open \T\ Closes Eyes/Filer Finish) - 0(Both) 2. Best Gaze (Lateral Gaze Paresis) - 0(Normal) 3. Visual Field Loss - 0(No visual loss) 4. Facial Palsy - 0(Normal) 5a. Left Arm: Motor (10-second hold) - 0(No drift) 5b. Right Arm: Motor (10-second hold) - 0(No drift) 6a. Left Leg: Motor (5-second hold - always test supine) - 0(No drift) 6b. Right Leg: Motor (5-second hold - always test supine) - 0(No drift) 7. Limb Ataxia (finger/nose \T\ heel/bland - test with eyes open) - 0(Absent) 8. Sensory Loss (pinprick arms/legs/face) - 0(Normal) 9. Best Language: Aphasia (description/naming/reading) - 0(No aphasia) Initials: sp4 Signatures: Dispatcher [employer] EDMS Diana Mcdowell RN RN lg3 Jacque Gamboa RN RN vc1 Moni Douglas RN RN Jag Bhatt MD MD sp4 Eric Baird RN as9 Corrections: (The following items were deleted from the chart) 05:32 00:56 Telemetry/MedSurg (Inpatient) sp4 lg3 05:32 00:56 sp4 lg3 05:32 05:32 lg3 lg3 06:30 05:32 [facility] ER HOLD lg3 vc1 06:30 05:32 ERHOLD- lg3 vc1
[2023-07-18] MEDS ORDERED: MORPHINE 4 MG/ML SYR ONE (00:58)
[2023-07-18] MEDS ORDERED: NA CHLORIDE 0.9% 1,000 ML ONE ×2 (00:58→05:24)
[2023-07-18] MEDS ORDERED: HYDRALAZINE HCL 20 MG/ML VIAL ONE (01:03)
[2023-07-18 02:05] LABS: Urine Bacteria None Seen /HPF (<20); Urine Bilirubin NEGATIVE (Negative); Urine Blood 1+ (Negative); Urine Clarity Clear (Clear); Urine Color Colorless (Yellow); Urine Glucose 4+ (Over) (Negative); Urine Mucus Slight /HPF (None Seen); Urine Protein 2+ (Negative); Urine Urobilinogen Normal (Normal); Urine pH 6.5 (5.0-7.0)
[2023-07-18 02:59] LABS: Urine Bacteria None Seen /HPF (<20); Urine Bilirubin NEGATIVE (Negative); Urine Blood 1+ (Negative); Urine Clarity Clear (Clear); Urine Color Colorless (Yellow); Urine Glucose 4+ (Over) (Negative); Urine Protein 2+ (Negative); Urine Urobilinogen Normal (Normal)
[2023-07-18] MEDS ORDERED: ONDANSETRON 4 MG/2 ML VIAL IV PRN (03:56)
[2023-07-18] MEDS ORDERED: ACETAMINOPHEN 325 MG TABLET PO PRN (03:56)
[2023-07-18] MEDS: NA CHLORIDE 0.9% 1,000 ML IV SCH (04:00)
--- NOTE | 2023-07-18 04:20 | P.HP ---
Certification for Inpatient Patient admitted to: Observation With expected LOS: <2 Midnights Practitioner: I am a practitioner with admitting privileges, knowledge of patient current condition, hospital course, and medical plan of care. Services: Services provided to patient in accordance with Admission requirements found in Title 42 Section 412.3 of the Code of Federal Regulations Patient History Date of Service: 07/18/23 Reason for admission: Nausea and vomiting History of Present Illness: 58-year-old gentleman with a history of diabetes presented to the emergency department with a complaint of nausea and vomiting which occurred last night. Symptoms associated with abdominal pain. Patient denies any fever or diarrhea or constipation. His blood sugar was significantly elevated in the ED. patient is on metformin, a combination of Lantus insulin and lixisenatide, and Farxiga. Workup in the emergency department revealed elevated lipase suggesting acute pancreatitis. CT abdomen and pelvis did not show any evidence of acute pancreatitis but reported left cystic renal mass. Patient denied any history of a renal mass. His symptoms improved with antiemetics and analgesics in the ED. Patient is hospitalized for further management. Allergies No Known Allergies Allergy (Verified 08/17/20 20:54) Home Medications: Metformin HCl 1,000 mg PO BID 08/04/18 Atorvastatin Calcium [Lipitor*] 20 mg PO DAILY 07/24/19 Dapagliflozin Propanediol [Farxiga] 10 mg PO DAILY 07/24/19 Insulin Glargine/Lixisenatide [Soliqua 100 Unit-33 Mcg/ml Pen] 18 units SQ DAILY 07/24/19 L.acidoph,Paracasei, B.lactis [Probiotic] 1 each PO DAILY 07/24/19 Rivaroxaban [Xarelto*] 10 mg PO DAILY tablet 08/25/20 Ascorbate Calcium [Vitamin C] 500 mg PO DAILY 10/12/20 Losartan Potassium 25 mg PO DAILY 10/12/20 Medihoney [Medihoney Woundcare Gel*] 1 appl TOP DAILY #1 tube 10/12/20 Zinc Sulfate [Zinc Sulfate*] 1 cap PO DAILY 10/12/20 Ondansetron [Zofran] 4 mg PO Q6H PRN #20 tab 10/15/20 Pantoprazole [Protonix Tab] 40 mg PO DAILY #30 tab 10/16/20 - Past Medical/Surgical History Diabetic: Yes -: Neuropathy -: Diabetes -: Hyperlipidemia -: Osteomyelitis -: AFib on anticoagulation -: lap appy -: L wrist fx repair -: R hand fx repair -: c3-6 fused Psychosocial/ Personal History: Patient is retired, lives with his and children - Family History Father -: Diabetes, Other (see notes) Notes: Stroke - Social History Alcohol use: No CD- Drugs: No Caffeine use: Yes Review of Systems Other: Except as documented, all other systems reviewed and negative. Physical Examination - Physical Exam General: Alert, In no apparent distress, Oriented x3 HEENT: Mucous membr. moist/pink, Sclerae nonicteric Neck: Supple, JVD not distended Respiratory: Clear to auscultation bilaterally, Normal air movement Cardiovascular: No edema, Regular rate/rhythm, Normal S1 S2 Capillary refill: <2 Seconds Gastrointestinal: Normal bowel sounds, Soft and benign, Non-distended, No tenderness Musculoskeletal: No swelling, No tenderness Integumentary: No rashes, No cyanosis Neurological: Normal strength at 5/5 x4 extr, Cranial nerves 3-12 intact Lymphatics: No axilla or inguinal lymphadenopathy - Studies Laboratory Data (last 24 hrs) 07/17/23 07/17/23 23:05 23:05 WBC 7.50 Hgb 14.5 Hct 43.3 Plt Count 300 Sodium 135 L Potassium 3.5 BUN 16 Creatinine 1.28 Glucose 365 H Total Bilirubin 0.3 AST 17 ALT 29 Alkaline Phosphatase 69 Lipase 219 H Microbiology Data (last 24 hrs): 07/17/23 23:26 Nasopharnyx Influenza Type A Antigen Screen - Final 07/17/23 23:26 Nasopharnyx Influenza Type B Antigen Screen - Final Assessment and Plan - Problems (Diagnosis) (1) Acute pancreatitis Current Visit: Yes Status: Acute (2) Type 2 diabetes mellitus with hyperglycemia Current Visit: Yes Status: Acute (3) Chronic atrial fibrillation Current Visit: Yes Status: Acute - Plan Place patient under observation Elevated lipase likely related to lixisenatide. Hold lixisenatide Hydrate with IV normal saline Supportive measures with antiemetics and analgesics as needed Serial lipase. Insulin sliding scale for glucose management Hold metformin. Also noted patient has significant constipation. Will order laxatives and stool softeners. Continue home medications for atrial fibrillation. - Advance Directives Does patient have a Living Will: No Does patient have a Durable POA for Healthcare: No
[2023-07-18] MEDS ORDERED: POLYETHYL GLY 3350 17 GM/DOSE PO PRN (04:33)
[2023-07-18] MEDS ORDERED: SENOSIDES 8.6 MG TAB PO PRN (04:33)
[2023-07-18] MEDS: MAGNESIUM CITRATE 300 ML BOT PO ONE (05:00)
[2023-07-18] MEDS ORDERED: MAGNESIUM CITRATE 300 ML BOT ONE (05:24)
[2023-07-18 05:39] VITALS: BMI 26.9
[2023-07-18] MEDS: INSULIN REGULAR (HUMAN) 100 UNIT/ML SQ SCH (07:30)
[2023-07-18] MEDS: INFLUENZA VACCINE (for 6+ mo) 0.5 ML DOSE IMVAC ONE (08:00)
[2023-07-18] MEDS: ENOXAPARIN 40 MG/0.4 ML SQ SCH (08:12)
[2023-07-18 08:17] VITALS: O2SAT 97
[2023-07-18] MEDS: POTASSIUM CL SA 10 MEQ TAB PO ONE (09:12)
[2023-07-18 09:50] LABS: Thyroid Stimulating Hormone 0.833 uIU/mL (0.358-3.740)
--- NOTE | 2023-07-18 13:38 | RAD REPORT ---
EXAM DESCRIPTION: CT - Abdomen Pelvis W Contrast - 07/18/2023 6:32 am CLINICAL HISTORY: Acute pancreatitis COMPARISON: None Available. TECHNIQUE: CT of the abdomen and pelvis performed following IV administration of iodinated contras t. This exam was performed according to our departmental dose-optimization program, which includes au tomated exposure control, adjustment of the mA and/or kV according to patient size and/or use of iter ative reconstruction technique. FINDINGS: Lung Bases: Mild bilateral dependent atelectasis. Bones: Chronic appearing L1 and L3 compression deformities. Multilevel endplate spondylosis and facet arthropathy. Osteoarthritic change of the hips. Abdomen: Liver: Hepatomegaly. Gallbladder: Calcified gallstones. Spleen, Pancreas, and Adrenal Glands: Splenomegaly. The pancreas and adrenal glands are unremarkabl e. No peripancreatic fat stranding. Kidneys: No hydronephrosis or obstructing calculus. Nonspecific perinephric fat stranding. 2.4 cm enhancing mass arising from the superior pole of the left kidney. Vasculature: Aortoiliac atherosclerosis. IVC is unremarkable. The portal vein is patent. The proxim al visceral and renal arteries are patent. Stomach: Mild wall thickening of the stomach with mild distention. Other: No free intraperitoneal air. No free fluid or lymphadenopathy. Pelvis: Bladder: Wall thickening of the urinary bladder with perivesical inflammatory change. Bowel: No dilated loops of large or small bowel. Large amount stool in the rectum and sigmoid colon . Appendix: Not visualized Pelvis: Enlarged prostate. IMPRESSION: 1. Wall thickening of the urinary bladder with perivesical inflammatory change. These findings could be seen with cystitis. 2. 2.4 cm enhancing mass arising from the superior pole of the left kidney concerning for renal jim l carcinoma. 3. Cholelithiasis. 4. Splenomegaly. 5. Hepatomegaly. 6. Mild wall thickening of the stomach with mild distention. These findings could be seen with maynor ritis. 7. Enlarged prostate. 8. Large amount stool in the rectum and sigmoid colon. 9. No CT evidence of acute pancreatitis. Electronically signed by: Sami Gallegos DO 07/18/2023 02:13 AM PRIMARY SUBSTANCE ABUSE COUNSELOR M Due to temporary technical issues with the PACS/Fluency reporting system, reports are being signed by the in house radiologist without review as a courtesy to ensure prompt reporting. The interpreting r adiologist is fully responsible for the content of the report.
--- NOTE | 2023-07-18 13:47 | RAD REPORT ---
EXAM DESCRIPTION: CT - Head Brain Wo Cont - 07/18/2023 6:32 am CLINICAL HISTORY: 58 years Male; HEADACHE; Bed Name: 19 TECHNIQUE: Noncontrast CT head. All CT scans at this facility use dose modulation, iterative reconstruction, and/or weight based dosi ng when appropriate to reduce radiation dose to as low as reasonably achievable. COMPARISON: None. FINDINGS: Parenchyma: No acute hemorrhage, large territorial infarction, or mass effect. Ventricles and extra-axial spaces: Appropriate for age. Visualized paranasal sinuses: Mild bilateral ethmoid sinus mucosal thickening. Mastoid air cells: Clear. Bones: No acute focal abnormality. Additional comment: Bilateral lens replacement. IMPRESSION: No acute intracranial findings. Electronically signed by: Bandar Patel MD 07/18/2023 12:04 AM GREETER Due to temporary technical issues with the PACS/Fluency reporting system, reports are being signed by the in house radiologist without review as a courtesy to ensure prompt reporting. The interpreting r adiologist is fully responsible for the content of the report.
[2023-07-18 16:35] VITALS: BP 154/72; TEMP 97.1
== END 2023-07-18 18:00 | disposition home or self-care (01) ==
LOC: ER 22:44 → ERHOLD 07-18 03:54 → 2ND 07-18 06:38
PROVIDERS: ADMIT Internal Medicine; ATTEND Hospitalist
DX: K85.90 Acute pancreatitis without necrosis or infection, unspecified (principal); E11.65 Type 2 diabetes mellitus with hyperglycemia; R10.9 Unspecified abdominal pain; K59.00 Constipation, unspecified; I48.11 Longstanding persistent atrial fibrillation; N28.9 Disorder of kidney and ureter, unspecified; R51.9 Headache, unspecified; Z79.01 Long term (current) use of anticoagulants; Z11.52 Encounter for screening for COVID-19
CPT/HCPCS: 36415; 70450; 74177; 80048; 80076; 81001; 82947; 83690; 83880; 84439; 84443; 85025; 87804; 87811; G0378; J0360; J1200; J1815; J2405; J2765; J7030; Q9967

== ENCOUNTER 2024-01-06 06:37 | Emergency (ER) | payer BC ==
[2024-01-06 07:56] LABS: Absolute Basophils 0.1 K/uL (0-0.5); Absolute Eosinophils 0.2 K/uL (0-0.5); Absolute Monocytes 0.5 K/uL (0.1-1.3); Basophils % 0.7 % (0-1.3); Eosinophils % 2.2 % (0-4.4); Hematocrit 40.3 % (39.6-49.0); Hemoglobin 13.2 g/dL (13.6-17.9); Lymphocytes % 12.8 % (15.3-44.8); MCH 25.8 pg (27.0-35.0); MCHC 32.7 g/dL (32.0-36.0); MCV 78.8 fL (80-100); Monocytes % 6.7 % (3.3-12.3); Neutrophils % 77.6 % (41.7-73.7); Platelets 331 thou/uL (152-406); RBC Red Blood Cell Count 5.12 M/uL (4.33-5.43); Red Cell Distribution Width 14.1 % (12.1-15.2)
[2024-01-06 08:01] LABS: SARS-CoV-2 Antigen CONTROL BLUE LINE VIS/BG OK; SARS-CoV-2 Antigen Rapid Res Negative (Negative)
[2024-01-06 08:10] LABS: Albumin 2.7 g/dL (3.4-5.0); Albumin/Globulin Ratio 0.6 (1.1-1.8); Anion Gap 12.5 mEq/L (5.0-15.0); Bilirubin Total 0.6 mg/dL (0.2-1.0); Globulin 4.4 g/dL (2.3-3.5); Potassium 3.5 mEq/L (3.5-5.1); Protein, Total 7.1 g/dL (6.4-8.2)
--- NOTE | 2024-01-06 08:53 | RAD REPORT ---
EXAM DESCRIPTION: CT - Chest For Pe Angio - 01/06/2024 8:35 am CLINICAL HISTORY: shortness of breath, recent surgery, hx RCC COMPARISON: Abdomen Pelvis W Contrast dated 01/06/2024 TECHNIQUE: Thin axial CT images of the chest were obtained following administration of 100 mL Isovue 370 IV contrast. Multiplanar reconstructions, and maximum intensity projection reconstructions were generated and reviewed. Exam utilizes a protocol for optimal evaluation of pulmonary arterial tree. All CT scans are performed using dose optimization technique as appropriate and may include automated exposure control or mA/KV adjustment according to patient size. FINDINGS: Pulmonary arteries are normal. No emboli or other suspicious finding. No acute or signific ant aorta findings. No mass or infiltrate in the lung parenchyma. Trace left pleural effusion and dependent subsegmental atelectasis. No pneumothorax. No abnormal mediastinal or hilar masses or lymphadenopathy seen. No chest wall mass or abnormal axill iary lymphadenopathy. Extensive free air in the upper abdomen, evaluated separately on dedicated CT of the abdomen of the valerie day. IMPRESSION: No evidence of acute central pulmonary emboli. Trace left pleural effusion.
--- NOTE | 2024-01-06 09:06 | RAD REPORT ---
EXAM DESCRIPTION: CT - Abdomen Pelvis W Contrast - 01/06/2024 8:35 am CLINICAL HISTORY: Left partial nephrectomy ;Abd pain COMPARISON: Abdomen Pelvis W Contrast dated 07/18/2023 TECHNIQUE: Thin cut axial CT imaging of the abdomen and pelvis was performed following intravenous a dministration of 100 mL Isovue 370. Multiplanar reformats were generated and reviewed. All CT scans are performed using dose optimization technique as appropriate and may include automated exposure control or mA/KV adjustment according to patient size. FINDINGS: Trace left pleural effusion. The liver, spleen, adrenal glands, and pancreas show no suspicious findings. Gallbladder and biliary tree are also without suspicious finding. Symmetric renal function is seen with no hydronephrosis or suspicious renal mass. Postsurgical changes of partial left nephrectomy, with some fat stranding and non loculated fluid mychal ng the medial left upper renal pole cortex. Relatively pronounced intraperitoneal free air in the upp er abdomen, may relate to the recent anterior surgical approach. Mild emphysematous changes along the left flank soft tissues extending to the left groin. No dilated bowel loops. Mild bowel wall thicken ing along the fundus and antrum of the stomach. Mild circumferential wall thickening of the distal es ophagus may relate to esophagitis. Non loculated, crescentic amount of fluid in the deep pelvis, with density slightly above that of simple fluid. No hernia, mass or bulky lymphadenopathy. The urinary b ladder is without significant finding. No suspicious bony findings. Stable wedge compression deformities of L1 and L3. IMPRESSION: Extensive intraperitoneal free air, and mild loculated small volume fluid in the lower p rogelio, favored to relate to recent anterior surgical approach to partial left nephrectomy. Recent postsurgical changes in the medial left upper pole, with no residual enhancing mass component. Nonspecific mild wall thickening along the fundus and antrum of the stomach. Mild circumferential wal l thickening of the distal esophagus. The findings favor inflammatory changes. The findings were communicated to Yamil Woodson on 01/06/2024 at 08:54 hours.
--- NOTE | 2024-01-06 09:26 | ER ---
Nurse's Notes [facility] Name: Zeke Mackay Sr Age: 58 yrs Sex: Male : 1965 Arrival Date: 01/06/2024 Time: 06:37 Bed 18 Private MD: Diagnosis: Myalgia;Abdominal pain, unspecified;Shortness of breath Presentation: 01/05 06:50 Chief complaint: Patient states: I had surgery last week to have a renal carcinoma jb4 removed and now I am having weakness, SOB, and pain all over that comes and goes. Coronavirus screen: At this time, the client does not indicate any symptoms associated with coronavirus-19. Ebola Screen: No symptoms or risks identified at this time. Initial Sepsis Screen: Does the patient meet any 2 criteria? No. Patient's initial sepsis screen is negative. Does the patient have a suspected source of infection? No. Patient's initial sepsis screen is negative. Risk Assessment: Do you want to hurt yourself or someone else? Patient reports desire/thoughts of hurting themselves or someone else. Provider notified. Onset of symptoms was January 06, 2024. Transition of care: patient was not received from another setting of care. 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 - Infectious Disease History:: Denies. - Social history:: Smoking status: Patient denies any tobacco usage or history of. Screenin:45 [facility] ED Fall Risk Assessment (Adult) History of falling in the last 3 months, rs5 including since admission No falls in past 3 months (0 pts) Confusion or Disorientation No (0 pts) Intoxicated or Sedated No (0 pts) Impaired Gait No (0 pts) Mobility Assist Device Used No (0 pt) Altered Elimination No (0 pt) Score/Fall Risk Level 0 - 2 = Low Risk Oriented to surroundings, Maintained a safe environment. Abuse screen: Denies threats or abuse. Nutritional screening: No deficits noted. Tuberculosis screening: No symptoms or risk factors identified. Assessment: 07:01 General: Appears in no apparent distress. uncomfortable, Behavior is calm, cooperative. rs5 Pain: Complains of pain in generalized, and left flank Pain currently is 4 out of 10 on a pain scale. Quality of pain is described as aching, Is continuous. Neuro: Level of Consciousness is awake, alert, obeys commands, Oriented to person, place, time, situation. Cardiovascular: Patient's skin is warm and dry. Respiratory: Airway is patent Respiratory effort is even, unlabored, Respiratory pattern is regular, symmetrical. GI: Abdomen is round non-distended, Abd is soft and non tender X 4 quads. : No signs and/or symptoms were reported regarding the genitourinary system. EENT: No signs and/or symptoms were reported regarding the EENT system. Derm: Skin is intact, Skin is pink, warm \T\ dry. Musculoskeletal: Range of motion: intact in all extremities. 07:45 Reassessment: Patient appears in no apparent distress at this time. Patient and/or db family updated on plan of care and expected duration. Pain level reassessed. Patient is alert, oriented x 3, equal unlabored respirations, skin warm/dry/pink. PATIENT REPORTS FEELING WEAK. MONITOR PICKING UP HR OF 38. NOTIFIED PHYSICIAN. EKG PERFORMED. PT PLACED ON ORDNANCE KEEPER AND HR PICKING UP AT 78. Neuro: Level of Consciousness is awake, alert, obeys commands, Oriented to person, place, time, situation. Cardiovascular: Reports WEAKNESS Rhythm is irregular. Respiratory: Reports shortness of breath at rest Airway is patent Respiratory effort is even, unlabored, Respiratory pattern is regular, symmetrical, Breath sounds are clear. 08:30 Reassessment: Patient appears in no apparent distress at this time. Patient and/or db family updated on plan of care and expected duration. Pain level reassessed. Patient is alert, oriented x 3, equal unlabored respirations, skin warm/dry/pink. 09:39 Reassessment: Patient appears in no apparent distress at this time. Patient and/or db family updated on plan of care and expected duration. Pain level reassessed. Patient is alert, oriented x 3, equal unlabored respirations, skin warm/dry/pink. Patient states feeling better. Patient states symptoms have improved. Vital Signs: 06:50 BP 166 / 83; Pulse 70; Resp 24; Temp 97.5(O); Pulse Ox 99% on R/A; Weight 85.28 kg (R); jb4 Height 6 ft. 2 in. ; 07:45 BP 173 / 86; Pulse 76; Resp 18; Pulse Ox 99% ; db 08:00 BP 159 / 97; Pulse 72; Resp 16; Pulse Ox 99% on R/A; db 09:30 BP 135 / 86; Pulse 76; Resp 16; Pulse Ox 99% on R/A; rs5 06:50 Body Mass Index 24.14 (85.28 kg, 187.96 cm) jb4 Vitals: 08:00 Cardiac Rhythm Assessment Irregular. db ED Course: 06:38 Patient arrived in ED. jj6 06:45 Patient has correct armband on for positive identification. Placed in gown. Bed in low rs5 position. Call light in reach. Side rails up X2. 06:53 Triage completed. jb4 06:53 Arm band placed on right wrist. jb4 07:06 Darinel Espino, RN is Primary Nurse. rs5 07:15 No provider procedures requiring assistance completed. Missed attempt(s): 20 gauge in rs5 right antecubital area. Bleeding controlled, band aid applied, catheter tip intact. 07:20 Yamil Woodson DO is Attending Physician. ms3 07:50 EKG done. db 08:02 Provided Education on: LABS. Client placed on continuous cardiac and pulse oximetry db monitoring. NIBP monitoring applied. electrolysis engineer on. Pulse ox on. NIBP on. Door closed. Noise minimized. Lights dimmed. Warm blanket given. Pillow given. 08:[address] via wheelchair. db 08:25 Inserted saline lock: 22 gauge in left antecubital area, using aseptic technique. db Flushed with 10 mL NS. 08:36 CT Abd/Pelvis - IV Contrast Only In Process Unspecified. EDMS 08:36 CT Chest For PE Angio In Process Unspecified. EDMS 09:39 IV discontinued, intact, bleeding controlled, No redness/swelling at site. db Administered Medications: No medications were administered Medication: 08:02 VIS not applicable for this client. db Outcome: 09:25 Discharge ordered by . ms3 09:39 Discharged to home ambulatory, db 09:39 Condition: stable 09:39 Discharge instructions given to patient, Instructed on discharge instructions, follow up and referral plans. Prescriptions given X 1, 09:43 Patient left the ED. db Signatures: Dispatcher [employer] EDMS Venkata Torres, RN RN jb4 Yamil Woodson DO DO ms3 Adriana Christie jj6 Pam Burnett RN RN db Darinel Espino RN RN rs5 Corrections: (The following items were deleted from the chart) 13:19 09:00 BP 135 / 86; Pulse 76bpm; Resp 16bpm; Pulse Ox 99% RA; db rs5
--- NOTE | 2024-01-06 09:26 | EDPHYS ---
Physician Documentation [facility] Name: Zeke Mackay Sr Age: 58 yrs Sex: Male : 1965 Arrival Date: 01/06/2024 Time: 06:37 Bed 18 Private MD: ED Physician Yamil Woodson HPI: 01/05 07:41 This 58 yrs old Male presents to ER via Wheelchair with complaints of Pain All Over, ms3 Shortness Of Breath, Low Blood Sugar, General Weakness. 07:41 58-year-old male with past medical history of cervical stenosis diabetes, hypertension, ms3 hypothyroid, renal cell carcinoma presents to the emergency department for myalgias and left sided abdominal pain. Patient notes he had a partial left nephrectomy on . He is also noting chills and bodyaches. He does note his recently had COVID. He describes his abdominal pain is a 3/10 and states the pain is better when laying flat. He denies inciting factors. 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 - Infectious Disease History:: Denies. - Social history:: Smoking status: Patient denies any tobacco usage or history of. ROS: 07:41 Cardiovascular: Negative for chest pain, and palpitations. Respiratory: Negative for ms3 shortness of breath, cough, wheezing, and pleuritic chest pain, 07:41 MS/Extremity: Negative for injury and deformity, Skin: Negative for injury, rash, and discoloration, 07:41 Constitutional: Positive for body aches, chills, 07:41 Abdomen/GI: Positive for abdominal pain, Negative for nausea, vomiting, and diarrhea, Exam: 07:41 Constitutional: This is a well developed, well nourished patient who is awake, alert, ms3 and in no acute distress. Neck: Trachea midline, no cervical lymphadenopathy. Supple, full range of motion without nuchal rigidity, or vertebral point tenderness. No Meningismus. Chest/axilla: Normal chest wall appearance and motion. Nontender with no deformity. Cardiovascular: Regular rate and rhythm with a normal S1 and S2. No gallops, murmurs, or rubs. Normal PMI, no JVD. No pulse deficits. Respiratory: Lungs have equal breath sounds bilaterally, clear to auscultation and percussion. No rales, rhonchi or wheezes noted. No increased work of breathing, no retractions or nasal flaring. 07:41 Abdomen/GI: Inspection: abdomen appears normal, Bowel sounds: normal, in all quadrants, Surgical incisions- Clean, dry, no surrounding erythema, 10:07 ECG was reviewed by the Attending Physician. ms3 Vital Signs: 06:50 BP 166 / 83; Pulse 70; Resp 24; Temp 97.5(O); Pulse Ox 99% on R/A; Weight 85.28 kg (R); jb4 Height 6 ft. 2 in. ; 07:45 BP 173 / 86; Pulse 76; Resp 18; Pulse Ox 99% ; db 08:00 BP 159 / 97; Pulse 72; Resp 16; Pulse Ox 99% on R/A; db 09:30 BP 135 / 86; Pulse 76; Resp 16; Pulse Ox 99% on R/A; rs5 06:50 Body Mass Index 24.14 (85.28 kg, 187.96 cm) jb4 MDM: 06:57 Patient medically screened. rn 07:41 Differential diagnosis: COVID, Post operative pain, Electrolyte abnormality, ms3 Constipation. 09:26 Data reviewed: vital signs, nurses notes, lab test result(s), radiologic studies, and ms3 as a result, I will discharge patient. Independent interpretation of the following test(s) in the Emergency Department CT Scan: My interpretation is CT abdomen and pelvis images reviewed by me shows free air. Likely due to recent surgery. Care significantly affected by the following chronic conditions: Cancer. Counseling: I had a detailed discussion with the patient and/or guardian regarding the historical points, exam findings, and any diagnostic results supporting the discharge/admit diagnosis, lab results, radiology results, the need for outpatient follow up, to return to the emergency department if symptoms worsen or persist or if there are any questions or concerns that arise at home. Special discussion: I discussed with the patient/guardian in detail that at this point there is no indication for admission to the hospital. It is understood, however, that if the symptoms persist or worsen the patient needs to return immediately for re-evaluation. ED course: Discussed labs, CT with patient. Patient to follow-up with primary care physician in 2 to 3 days. All questions were answered. Return precautions discussed include worsening symptoms, or any other concerns. On reevaluation patient's abdomen with mild tenderness, no guarding, no rebound. Patient to follow-up with his primary care in 2 to 3 days. Patient understands and agrees with plan. All questions were answered. Return precautions discussed include worsening symptoms, or any other concerns. 01/05 06:55 Order name: Glucose, Ancillary Testing; Complete Time: 07:03 EDMS 01/05 07:29 Order name: CBC with Diff; Complete Time: 08:16 ms3 01/05 07:29 Order name: CMP; Complete Time: 08:16 ms3 01/05 07:29 Order name: SARS RAPID; Complete Time: 08:16 ms3 01/05 07:29 Order name: CT Abd/Pelvis - IV Contrast Only; Complete Time: 09:19 ms3 01/05 08:19 Order name: CT Chest For PE Angio; Complete Time: :19 ms3 EC:07 Rate is 73 beats/min. Rhythm is regular. QRS [place] is Normal. IA interval is normal. QRS ms3 interval is normal. Clinical impression: NSR w/ Non-specific ST/T Changes and with PAC. Interpreted by me. Reviewed by me. Administered Medications: No medications were administered Disposition Summary: 01/06/24 09:25 Discharge Ordered Notes: Location: Home ms3 Condition: Stable ms3 Diagnosis - Myalgia ms3 - Abdominal pain, unspecified ms3 - Shortness of breath ms3 Followup: ms3 - With: Private Physician - When: 2 - 3 days - Reason: Recheck today's complaints Discharge Instructions: - Discharge Summary Sheet ms3 - Abdominal Pain, Adult ms3 - Shortness of Breath, Adult ms3 Forms: - Medication Reconciliation Form ms3 - Antibiotic Education ms3 - Prescription Opioid Use ms3 - Patient Portal Instructions ms3 - Leadership Thank You Letter ms3 Prescriptions: - Pepcid 20 mg Oral Tablet - take 1 tablet ORAL route every 12 hours for 10 days; 20 tablet; Refills: 0, ms3 Product Selection Permitted Signatures: Dispatcher [facility] Emanuel England MD MD rn Bryson, James, RN RN jb4 Yamil Woodson DO DO ms3 Corrections: (The following items were deleted from the chart) 08:19 08:19 Chest For PE Angio+CT.RAD.BRZ ordered. EDMS EDMS
[2024-01-06 09:53] VITALS: TEMP 97.5; O2SAT 99
[2024-01-06 10:08] VITALS: BP 159/97
--- OUTSIDE RECORDS SUMMARY | 2024-01-07 13:39 | XMS REPORT | Clinical Summary ---
Author Name Unknown Organization [facility] Address [address] [place] [address] Care Team Providers Care Actuarial Director Name Role Phone Margoth Souza MD Primary Care Provider [phone] Mary Jane Cassidy MD Unavailable [phone] Barry He MD Unavailable Patience Hunt MD Unavailable Allergies No known active allergies Medications Medication Sig Dispensed Refills Start Date End Date Status dapagliflozin propanediol (Farxiga) 10 mg tablet Take 1 tablet (10 mg) by mouth daily. Active metFORMIN (GLUCOPHAGE) 500 mg tablet Take 2 tablets (1,000 mg) by mouth 2 (two) times a day with meals. Active insulin glargine-lixisena tide (Soliqua 100/33) 100 unit-33 mcg/mL inpn Inject 60 Units/day under the skin daily. Active polyethylene glycol (GLYCOLAX) 17 gram/dose powderIndications :Renal mass Fill powder to justice inside cap (17 g). Stir and Dissolve in any 4 to 8 ounces of beverage then drink solution daily for 30 days as directed. 510 g 01/03/2024 Active traMADol (ULTRAM) 50 mg tabletIndications :Renal mass Take 1 tablet (50 mg) by mouth every 4 (four) hours as needed for moderate pain or severe pain. 20 tablet 01/03/2024 Active methocarbamol (ROBAXIN) 500 mg tabletIndications :Renal mass Take 1 tablet (500 mg) by mouth every 8 (eight) hours as needed for muscle spasms. 20 tablet 01/03/2024 Active tadalafil (CIALIS) 5 mg tablet Take 1 tablet (5 mg) by mouth daily. 08/14/2023 Discontinued dexAMETHasone (DECADRON) 2 mg tabletIndications :Adenoma, NOS of adrenal gland, NOS <Left> Take 0.5 tablets (1 mg) by mouth once for 1 dose. Take at 11pm tonight 1 tablet 09/16/2023 dexAMETHasone (DECADRON) 1 mg tabletIndications :Adrenal mass Take 1 tablet (1 mg) by mouth once for 1 dose. At 11pm the night before serum cortisol will be drawn; must complete lab close to 8am the following day. 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 09/16/2023 Paroxysmal atrial fibrillation Diabetic ketoacidosis Overview: Hospitalized locally 12/03/2023-12/06/2023 Gastro-esophageal reflux disease without esophag itis Hyperlipidemia Hypertension Neuropathy Renal cell carcinoma <Left side> Encounters Date Type Department Care Team Description 01/02/2024 7:15 AM CDT Ancillary Procedure MAIN OR [address] [id number] Margoth Souza MD Arrived 01/02/2024 7:00 AM CDT - 01/02/2024 11:40 AM CDT Surgery MAIN OR [address] [place] [address] Margoth Souza MD ROBOTIC ASSISTED PARTIAL NEPHRECTOMY 01/02/2024 6:58 AM CDT Anesthesia Event MAIN OR [address] [place] [address] Alonzo Liu MD Majekodumi, Jessy, CRNA 01/02/2024 5:04 AM CDT - 01/03/2024 5:05 PM CDT Hospital Encounter MAIN [id number] [address] [place] [address] Margoth Souza MD Renal mass (Primary Dx) Discharge Disposition: Home 01/02/2024 Travel 12/31/2023 1:04 PM CDT - 12/31/2023 11:59 PM CDT Hospital Encounter Main CT IMAGING [address] [place] [address], 3rd Floor Elevator [address] [phone] Margoth Souza MD Renal mass Discharge Disposition: Home 12/31/2023 8:00 AM CDT Consult Endocrine Center [address] [place] [address], [facility] Floor Elevator [address] [phone] Nakia Kirby APRN Khan, Sonya, MD Type 2 diabetes mellitus with hyperglycemia [E11.65] (Primary Dx); Pre-surgery evaluation 12/30/2023 9:30 AM CDT Office Visit [facility] [address] [place] [address], 7th [place] [address] Margoth Souza MD Renal mass 12/30/2023 Travel 12/30/2023 Telephone Endocrine Center [address] [place] [address], [address] [place] [address] [place] [address] Winnie Archibald, RN Appointment (Cannot get internet-phone broke) 12/30/2023 Orders Only [facility] [address] [place] [address], 7th [place] [address] Roberto Poole PA Renal mass (Primary Dx) 12/29/2023 Orders Only Endocrine Center [address] [place] [address], [address] [place], [place] [address] [address] Veronica Del Castillo APRN 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); Endocrine/metabolic screening; Renal cell carcinoma <Left side> 12/25/2023 8:36 AM CDT Anesthesia Event [facility] [address] [place] [address], [address] [place], [place] [address] [address] Lien Antonio RN 12/23/2023 10:30 AM CDT Consult Perioperative Evaluation and Management [address] [place] [address], [address] [place], [place] [address] [address] Margoth Souza MD Oh, Jeong, MD Encounter for other preprocedural examination (Primary Dx); Renal mass; Hyperlipidemia, not otherwise specified 12/23/2023 9:00 AM CDT POEM Appointments [facility] [address] [place] [address] Margoth Souza MD Pre-surgery evaluation (Primary Dx) 12/23/2023 8:45 AM CDT - 12/23/2023 11:59 PM CDT Hospital Encounter [facility] [address] [place] [address] Margoth Souza MD Renal mass Discharge Disposition: Home 12/23/2023 Travel 12/09/2023 9:33 AM CDT - 12/09/2023 11:59 PM CDT Hospital Encounter [facility] [address] [place] [address] Veronica Del Castillo APRN 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; Endocrine/metabolic screening Discharge Disposition: Home 12/09/2023 8:30 AM CDT Consult Endocrine Center [address] [place], [place] [phone] Mary Jane Cassidy MD 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); Endocrine/metabolic screening; Renal cell carcinoma <Left side> 12/09/2023 Travel 10/23/2023 Orders Only [facility] [address] [facility], 7th [place] [address] Roberto Poole PA Renal mass (Primary Dx); Adrenal mass 10/03/2023 9:30 AM CDT - 10/03/2023 11:59 PM CDT Hospital Encounter Interventional Radiology [address] [place] [address], 4th [place] [address] Shazia Arriaza MD McRae, Stephen, MD Renal mass Discharge Disposition: Home 10/03/2023 8:30 AM CDT - 10/03/2023 9:29 AM CDT Hospital Encounter [facility] [address] [place] [phone] Margoth Souza MD Renal mass Discharge Disposition: Home 10/03/2023 Travel 10/02/2023 8:24 AM CDT - 10/02/2023 11:59 PM CDT Hospital Encounter Interventional Radiology [address] [place] [address], 4th [place] [address] Margoth Souza MD Ho, ThanhRenata Horn PA-C Encounter for other preprocedural examination (Primary Dx); Renal mass; 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 Discharge Disposition: Home 10/02/2023 Travel 09/24/2023 7:46 AM CDT - 09/24/2023 11:59 PM CDT Hospital Encounter [facility] [address] [place] [address] Roberto Poole PA Adrenal mass Discharge Disposition: Home 09/20/2023 Orders Only [facility] [address] [place] [address], 7th [place] [address] Roberto Poole PA Adrenal mass (Primary Dx) 09/19/2023 11:45 AM CDT Ancillary Procedure X-Ray Outpatient Center [address] [place] [address], 7th [place] [address] Shazia Arriaza MD Renal mass 09/19/2023 9:20 AM CDT - 09/19/2023 11:59 PM CDT Hospital Encounter [facility] [address] [place] [address] Shazia Arriaza MD Adenoma, NOS of adrenal gland, 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> Discharge Disposition: Home 09/19/2023 Orders Only Interventional Radiology [address] [place] [address], 4th [place] [address] Abilio Ng PA-C Renal mass (Primary Dx) 09/19/2023 Travel 09/19/2023 Telephone MD [facility] [address] [place] [address] Barbara Rees MA 09/16/2023 4:00 PM CDT - 09/16/2023 11:59 PM CDT Hospital Encounter [facility] [address] [place] [address] Shazia Arriaza MD Renal mass; Adrenal mass Discharge Disposition: Home 09/16/2023 2:00 PM CDT Office Visit [facility] [address] [place] [address], 7th [place] [address] Margoth Souza MD Renal mass (Primary Dx); Adrenal mass; Adenoma, NOS of adrenal gland, 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>; 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 09/16/2023 12:30 PM CDT NPR MDA PATIENT ACCESS 09/16/2023 Travel 08/08/2023 8:00 PM CDT Ancillary Procedure [facility] [address] [place] [phone] Margoth Souza MD Cancer 08/08/2023 6:40 AM CDT Ancillary Procedure [facility] [address] [place] [phone] Margoth Souza MD Cancer after 01/06/2023 Surgical History Surgery Date Site/Laterality Comments TOE AMPUTATION x2, 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, 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 APPENDECTOMY 05/20/1973 - 05/19/1974 Open WRIST SURGERY Left HAND SURGERY Right HIP ARTHRODESIS W/ ILIAC CREST BONE GRAFT Bilateral For hand surgeries CERVICAL SPINE SURGERY C3-6 fusion, x2 NM LAPAROSCOPY SURG PARTIAL NEPHRECTOMY 01/02/2024 Abdomen/Left Procedure: ROBOTIC ASSISTED PARTIAL NEPHRECTOMY; Surgeon: Margoth Souza MD; Location: MAIN OR; Service: UROLOGY NM ULTRASONIC GUIDANCE INTRAOPERATIVE 01/02/2024 Left Procedure: INTROPERATIVE ULTRASOUND - PERFORMED BY SURGEON; Surgeon: Margoth Souza MD; Location: MAIN OR; Service: UROLOGY Medical History Medical History Date Comments Neuropathy Hyperlipidemia Hypertension Gastro-esophageal reflux dis ease without esophagitis Osteomyelitis Renal cell carcinoma <Left side> Diabetic ketoacidosis Hospital ed locally 12/03/2023-12/06/2023 Type 2 diabetes mellitus wit h hyperglycemia 01/02/2024 Social History Tobacco Use Types Packs/Day Years Used Date Smoking Tobacco: Never Smokeless Tobacco: Never Alcohol Use Standard Drinks/Week Comments Not Currently 0 (1 standard drink = 0.6 oz pur e alcohol) Sex and Gender Information Value Date Recorded Sex Assigned at Not on file Gender Identity Not on file Sexual Orientation Not on file Job Start Date Occupation Industry Not on file Not on file Not on file Obstetrics History Last Filed Vital Signs Vital Sign Reading Time Taken Comments Blood Pressure 165/80 01/03/2024 3:59 PM CDT Pulse 71 01/03/2024 3:42 PM CDT Temperature 36.5 C (97.7 F) 01/03/2024 3:42 PM CD T Respiratory Rate 18 01/03/2024 3:42 PM CDT Oxygen Saturation 98% 01/03/2024 3:42 PM CDT Inhaled Oxygen Concentration - - Weight 82.6 kg (182 lb 1.6 oz) 01/02/2024 2:32 P M CDT Height 182.5 cm (5' 11.85") 01/02/2024 2:32 PM C DT Body Mass Index 24.8 01/02/2024 2:32 PM CDT Plan of Treatment Health Maintenance Due Date Last Done Comments Pneumococcal Vaccine: Pediat rics (0 to 5 Years) and At-Risk Patients (6 to 64 Years) (1 of 2 - PCV) 01/09/1970 01/09/1975 COVID-19 Vaccine ( - 2022- season) 2023 Influenza Vaccine 01/19/2024 08/04/2018 Procedures Procedure Name Priority Date/Time Associated Diagnosis Comments BASIC METABOLIC PANEL, CALCIUM TOTAL Routine 01/03/2024 2:59 PM CDT BASIC METABOLIC PANEL, CALCIUM TOTAL Routine 01/03/2024 11:31 AM CDT POC GLUCOSE SCREEN Routine 01/03/2024 11:19 AM CDT POC GLUCOSE SCREEN Routine 01/03/2024 8:35 AM CDT BASIC METABOLIC PANEL, CALCIUM TOTAL Routine 01/03/2024 8:04 AM CDT POC GLUCOSE SCREEN Routine 01/03/2024 7:20 AM CDT POC GLUCOSE SCREEN Routine 01/03/2024 7:04 AM CDT BASIC METABOLIC PANEL, CALCIUM TOTAL Routine 01/03/2024 4:22 AM CDT C-PEPTIDE Routine 01/03/2024 4:22 AM CDT POC GLUCOSE SCREEN Routine 01/03/2024 3:54 AM CDT POC GLUCOSE SCREEN Routine 01/03/2024 12:01 AM CDT BASIC METABOLIC PANEL, CALCIUM TOTAL Routine 01/02/2024 10:55 PM CDT POC GLUCOSE SCREEN Routine 01/02/2024 10:35 PM CDT POC GLUCOSE SCREEN Routine 01/02/2024 8:04 PM CDT MDA CP HEMOGRAM Routine 01/02/2024 7:20 PM CDT COMPLETE BLOOD COUNT W/ INDICES Routine 01/02/2024 7:20 PM CDT BASIC METABOLIC PANEL, CALCIUM TOTAL Routine 01/02/2024 7:20 PM CDT BETA-HYDROXYBUTYRATE QUANTITATIVE Routine 01/02/2024 7:20 PM CDT POC GLUCOSE SCREEN Routine 01/02/2024 7:04 PM CDT POC GLUCOSE SCREEN Routine 01/02/2024 5:04 PM CDT BETA-HYDROXYBUTYRATE QUANTITATIVE STAT 01/02/2024 3:54 PM CDT POC GLUCOSE SCREEN Routine 01/02/2024 2:50 PM CDT POC GLUCOSE SCREEN Routine 01/02/2024 12:21 PM CDT .CBC Routine 01/02/2024 12:19 PM CDT COMPLETE BLOOD COUNT W/ DIFFERENTIAL Routine 01/02/2024 12:19 PM CDT BASIC METABOLIC PANEL, CALCIUM TOTAL Routine 01/02/2024 12:19 PM CDT ARTERIAL BLOOD GAS PLUS STAT 01/02/20 10:38 AM CDT ARTERIAL BLOOD GAS PLUS STAT 01/02/20 8:42 AM CDT POC GLUCOSE SCREEN Routine 01/02/2024 8:18 AM CDT INTRAOPERATIVE US STAT 01/02/2024 7:13 AM CDT NM ULTRASONIC GUIDANCE INTRAOPERATIVE 01/02/2024 6:08 AM CDT Renal mass Special Ne[email or web address]:Please collect and send tissue to pathology window with appropriate label. NM LAPAROSCOPY SURG PARTIAL NEPHRECTOMY 01/02/2024 6:08 AM CDT Renal mass Special Needs [email or web address]:Please collect and send tissue to pathology window with appropriate label. POC GLUCOSE SCREEN Routine 01/02/2024 6:[address] ABDOMEN W WO CONTRAST Routine 4:41 PM CDT Renal mass BB PREOP EXP DATE Routine 12/23/2023 8:51 AM CDT Renal mass PREOP UPDATED EXPIRATION Routine 024 8:51 AM CDT Renal mass TMP INTERPRETATION EXCEPTION PREOP EXPIRATION Routine 12/23/2023 8:51 AM CDT Renal mass UA W/ CX Routine 12/23/2023 8:51 AM CDT Renal mass .CBC Routine 12/23/2023 8:51 AM CDT Renal mass 30-DAY PRE-OP TYPE & SCREEN Routine 09/2023 8:51 AM CDT Renal mass HEMOGLOBIN A1C Routine 12/23/2023 8:51 AM CDT Renal mass URINALYSI W/REFLEX CULTURE Routine 12/22 8:51 AM CDT Renal mass COMPREHENSIVE METABOLIC PANEL Routine 12/23/2023 8:51 AM CDT Renal mass COMPLETE BLOOD COUNT W/ DIFFERENTIAL Routine 12/23/2023 8:51 AM CDT Renal mass DEHYDROEPIANDROSTERONE SULFATE Routine 12/09/2023 9:45 AM CDT 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 Endocrine/meta bolic screening CORTISOL, TOTAL Routine 12/09/2023 9:45 AM CDT 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 Endocrine/meta bolic screening ADRENOCORTICOTROPIC HORMONE Routine 11/18 9:45 AM CDT 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 Endocrine/meta bolic screening IR CT GUIDED BIOPSY RENAL 60 Routine 10/03/2023 10:27 AM CDT Renal mass PATHOLOGY BIOPSY INTERPRETATION Routine 10/03/2023 10:19 AM CDT Renal mass POC GLUCOSE SCREEN Routine 10/03/2023 9:57 AM CDT PROTHROMBIN TIME Routine 10/03/2023 9:27 AM CDT Renal mass TYPE AND SCREEN Routine 10/03/2023 9:27 AM CDT Renal mass CORTISOL, TOTAL Routine 09/24/2023 8:17 AM CDT Adrenal mass CORTISOL, TOTAL Routine 09/19/2023 9:28 AM CDT Adenoma, NOS of adrenal gland, 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> XR CHEST 2 VW Routine 09/19/2023 9:24 AM CDT Renal mass EKG, 12-LEAD (SCHEDULED) Routine 09/19/2023 Renal mass TMP INTERPRETATION EXCEPTION PREOP EXPIRATION Routine 09/16/2023 4:24 PM CDT Renal mass .CBC Routine 09/16/2023 4:24 PM CDT Renal mass UA W/ CX Routine 09/16/2023 4:24 PM CDT Renal mass HEPATITIS C VIRUS ANTIBODY Routine 09/15 4:24 PM CDT Renal mass 30-DAY PRE-OP TYPE & SCREEN Routine 08/19 4:24 PM CDT Renal mass METANEPHRINES FRACTIONATED Routine 09/15 4:24 PM CDT Adrenal mass ALDOSTERONE Routine 09/16/2023 4:24 PM CDT Adrenal mass RENIN ACTIVITY Routine 09/16/2023 4:24 PM CDT Adrenal mass CORTISOL, TOTAL Routine 09/16/2023 4:24 PM CDT Adrenal mass ADRENOCORTICOTROPIC HORMONE Routine 08/19 4:24 PM CDT Adrenal mass URINALYSI W/REFLEX CULTURE Routine 09/15 4:24 PM CDT Renal mass COMPREHENSIVE METABOLIC PANEL Routine 09/16/2023 4:24 PM CDT Renal mass COMPLETE BLOOD COUNT W/ DIFFERENTIAL Routine 09/16/2023 4:24 PM CDT Renal mass THYROID STIMULATING HORMONE Routine 08/19 4:24 PM CDT Renal mass THYROXINE Routine 09/16/2023 4:24 PM CDT Renal mass HEMOGLOBIN A1C Routine 09/16/2023 4:24 PM CDT Renal mass URINE CULTURE Routine 09/16/2023 4:24 PM CDT Renal mass CONFIRM ABORH TYPE Routine 09/16/2023 4:23 PM CDT Renal mass OSI CT ABDOMEN AND PELVIS Routine 2023 7:40 AM 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 eGFR 71 >=60 mL/min/1. 73 sq. m 01/03/2024 3:44 PM CDT [facility] Comment: The eGFRcr is calculated with the 2020 CKD-EPI creatinine equation using creatinine, patient's age, and sex for adults 18 years of age and older. Other factors, especially muscle mass, may affect accuracy and need to be considered. According to the Kidney Disease: Improving Global Outcomes (KDIGO) CKD Work Group 2012 Clinical Practice Guideline, chronic kidney disease (CKD) is defined as the abnormalities of kidney structure or function, present for more than 3 months, with implications for health. CKD should be classified by cause, GFR category, and albuminuria category. KDIGO guidelines provide the following GFR categories. Stage / Description / GFR mL/min/1.73 m2: G1* / Normal or high / >= 90 G2* / Mildly decreased / 60-89 G3a / Mildly to moderately decreased / 45-59 G3b / Moderately to severely decreased / 30-44 G4 / Severely decreased / 15-29 G5 / Kidney failure / <15 *In the absence of evidence of kidney damage, neither G1 nor G2 fulfill criteria for CKD. Calcium Level Total 8.3 8.2 - 10.2 mg/dL 01/03/2024 3:44 PM CDT [facility] Sodium Level 139 136 - 145 mmol/L 01/03/2024 3:44 PM CDT [facility] Potassium Level 3.9 3.4 - 4.5 mmol/L 01/03/2024 3:44 PM CDT [facility] Chloride 103 98 - 107 mmol/L 01/03/2024 3:44 PM CDT [facility] CO2 28 22 - 29 mmol/L 01/03/2024 3:44 PM CDT [facility] Anion Gap 8 4 - 14 mmol/L 01/03/2024 3:44 PM CDT [facility] Creatinine 1.18(H) 0.67 - 1.17 mg/dL 01/03/2024 3:44 PM CDT [facility] BUN 15 6 - 23 mg/dL 01/03/2024 3:44 PM CDT [facility] Glucose Level 137(H) 70 - 99 mg/dL 01/03/2024 3:44 PM CDT [facility] Comment: Effective 12/14/15, the glucose reference intervals have been updated based on [place] Diabetes Association guidelines (Standards of Medical Care in Diabetes 2016. Diabetes Care 2016; 39: S13-S22). Fasting blood glucose: Normal: 70-99 mg/dL Impaired fasting glucose (increased risk for diabetes or pre-diabetes): 100-125 mg/dL Diabetes mellitus: >/=126 mg/dL Random blood glucose: Normal: 70-199 mg/dL Note: Random glucose >100 mg/dL is associated with increased risk for diabetes. Blood Peripheral blood specimen / Unknown Venipuncture / Unknown 01/03/2024 2:59 PM CDT 01/03/2024 3:02 PM CDT Alicia Sohail Mcmanus APRN LAB BLOOD ORDERABLE S Performing Organization Address [facility]/ZIP Co de Phone Number [facility] Unless otherwise noted, all lab tests performed by: Division of Pathology and Laboratory Medicine [address] [place] [id number] * POC Glucose Screen - Fingerstick (01/03/2024 11:19 AM CDT) Only the most recent of15 resultswithin the time period is included. Glucose Screen 70 70 - 99 mg/dL 01/03/2024 11:20 AM CDT [facility] POC Sample Type Capillary 01/03/2024 11:20 AM CDT [facility] Blood 01/03/2024 11:1 9 AM CDT 01/03/2024 11:20 AM CDT Narrative [facility] - 01/03/2024 11:20 AM CDT Capillary blood samples, e.g. obtained by fingerstick, may have inaccurate results in patients with decreased peripheral blood flow. Method description: All results are measured using Electrochemistry test methodology. The glucose in the sample mixes with the reagents on the test strip. The reaction produces an electric current. The amount of current produced is proportional to the glucose concentration in the blood. All POC Glucose screen test results, including critical values, must be interpreted and evaluated in the context of the patients' clinical findings. It is recommended to confirm any questionable test results by core lab methodology. Margoth Souza MD POCT ORDERABLES - DE VICE Performing Organization Address City/[facility]/ZIP Co de Phone Number [facility] Unless otherwise noted, all lab tests performed by: Division of Pathology and Laboratory Medicine [address] [place] [phone] * C Peptide (01/03/2024 4:22 AM CDT) Pathologist [facility] C-Peptide 2.12 1.10 - 4.40 ng/mL 01/03/2024 5:48 AM CDT [facility] Blood Peripheral blood specimen / Unknown Venipuncture / Unknown 01/03/2024 4:22 AM CDT 01/03/2024 4:55 AM CDT Alicia Sauceda [place] MARIE LAB BLOOD ORDERABLE S [facility] Unless otherwise noted, all lab tests performed by: Division of Pathology and Laboratory Medicine [facility] [place] [address] * (ABNORMAL) Hemogram (01/02/2024 7:20 PM CDT) White Blood Cell 13.8(H) 4.1 - 10.5 K/uL 01/02/2024 7:33 PM CDT [facility] Red Blood Cell 4.74 4.30 - 6.04 M/uL 01/02/2024 7:33 PM CDT [facility] Hemoglobin 12.2(L) 13.3 - 17.4 g/dL 01/02/2024 7:33 PM CDT [facility] Hematocrit 38.6(L) 39.5 - 51.8 % 01/02/2024 7:33 PM CDT [facility] Mean Cell Volume 81(L) 82 - 99 fL 01/02/2024 7:33 PM CDT [facility] Mean Cell Hemoglobin 25.7(L) 26.6 - 33.2 pg 01/02/2024 7:33 PM CDT [facility] Mean Cell Hemoglobin Concentration 31.6 31.1 - 35.2 g/dL 01/02/2024 7:33 PM CDT [facility] RDW-SD 39.1 37.5 - 49.7 fL 01/02/2024 7:33 PM CDT [facility] Red Cell Diameter Width 13.1 11.6 - 15.5 % 01/02/2024 7:33 PM CDT [facility] Platelet 291 160 - 397 K/uL 01/02/2024 7:33 PM CDT [facility] Mean Platelet Volume 9.7 9.1 - 12.6 fL 01/02/2024 7:33 PM CDT [facility] INRBC 0.0 0.0 - 0.1 /100 WBC 01/02/2024 7:33 PM CDT [facility] Comment: The INRBC (instrument NRBC) value reflects the enumeration of nucleated red blood cells contained in a 200uL sample of whole blood analyzed by the instrument. This value may differ from the NRBC value reported in a manual differential, which is based on a 100 cell differential. Blood Peripheral blood specimen / Unknown Venipuncture / Unknown 01/02/2024 7:20 PM CDT 01/02/2024 7:24 PM CDT Derian PRICE LAB BLOOD ORDERABLES [facility] Unless otherwise noted, all lab tests performed by: Division of Pathology and Laboratory Medicine [address] [place] [phone] * (ABNORMAL) Beta Hydroxy Quant (01/02/2024 7:20 PM CDT) Only the most recent of2 resultswithin the time period is included. [facility] Beta-Hydroxybuty rate 0.85(H) 0.02 - 0.27 mmol/L 01/02/2024 8:01 PM CDT [facility] Is patient fasting? No 01/02/2024 8:01 PM CDT [facility] Comment:A fasting specimen i s recommended and results obtained from non-fasting specimens should be interpreted with caution using reference ranges based on fasting status and in conjunction with clinical context. Blood Peripheral blood specimen / Unknown Venipuncture / Unknown 01/02/2024 7:20 PM CDT 01/02/2024 7:24 PM CDT Narrative [facility] - 01/02/2024 8:01 PM CDT Reference range based on fasting. Alicia Mcmanus APRN LAB BLOOD ORDERABLE S Performing Organization Address City/[facility]/ZIP Co de Phone Number [facility] Unless otherwise noted, all lab tests performed by: Division of Pathology and Laboratory Medicine [address] [place] [phone] * (ABNORMAL) .CBC (01/02/2024 12:19 PM CDT) Only the most recent of3 resultswithin the time period is included. [facility] White Blood Cell 11.6(H) 4.1 - 10.5 K/uL 01/02/2024 12:39 PM CDT [facility] Red Blood Cell 4.71 4.30 - 6.04 M/uL 01/02/2024 12:39 PM CDT [facility] Hemoglobin 12.4(L) 13.3 - 17.4 g/dL 01/02/2024 12:39 PM CDT [facility] Hematocrit 38.1(L) 39.5 - 51.8 % 01/02/2024 12:39 PM CDT [facility] Mean Cell Volume 81(L) 82 - 99 fL 01/02/2024 12:39 PM CDT [facility] Mean Cell Hemoglobin 26.3(L) 26.6 - 33.2 pg 01/02/2024 12:39 PM CDT [facility] Mean Cell Hemoglobin Concentration 32.5 31.1 - 35.2 g/dL 01/02/2024 12:39 PM CDT [facility] RDW-SD 39.0 37.5 - 49.7 fL 01/02/2024 12:39 PM CDT [facility] Red Cell Diameter Width 13.3 11.6 - 15.5 % 01/02/2024 12:39 PM CDT [facility] Platelet 305 160 - 397 K/uL 01/02/2024 12:39 PM CDT [facility] Mean Platelet Volume 9.7 9.1 - 12.6 fL 01/02/2024 12:39 PM CDT [facility] INRBC 0.0 0.0 - 0.1 /100 WBC 01/02/2024 12:39 PM T [facility] Comment: The INRBC (instrument NRBC) value reflects the enumeration of nucleated red blood cells contained in a 200uL sample of whole blood analyzed by the instrument. This value may differ from the NRBC value reported in a manual differential, which is based on a 100 cell differential. Neutrophil % 90.6(H) 43.2 - 72.7 % 01/02/2024 12:39 PM CDT [facility] Lymphocyte % 6.8(L) 16.8 - 46.2 % 01/02/2024 12:39 PM CDT [facility] Monocyte % 1.9(L) 5.1 - 12.5 % 01/02/2024 12:39 PM CDT [facility] Eosinophil % 0.1(L) 0.4 - 6.3 % 01/02/2024 12:39 PM CDT [facility] Basophil % 0.3 0.2 - 1.4 % 01/02/2024 12:39 PM CDT [facility] IGRE % 0.3 0.1 - 1.5 % 01/02/2024 12:39 PM CDT [facility] Comment:The IGRE% includes M etamyelocytes, Myelocytes and Promyelocytes. Neutrophil Abs 10.48(H) 1.95 - 7.25 K/uL 01/02/2024 12:39 PM CDT [facility] Lymphocyte Abs 0.79(L) 1.01 - 3.24 K/uL 01/02/2024 12:39 PM CDT [facility] Monocyte Abs 0.22(L) 0.24 - 0.85 K/uL 01/02/2024 12:39 PM CDT [facility] Eosinophil Abs 0.01(L) 0.02 - 0.50 K/uL 01/02/2024 12:39 PM CDT [facility] Basophil Abs 0.03 0.02 - 0.09 K/uL 01/02/2024 12:39 PM CDT [facility] IG Abs 0.03 0.01 - 0.12 K/uL 01/02/2024 12:39 PM CDT [facility] Blood Peripheral blood specimen / Unknown Venipuncture / Unknown 01/02/2024 12:19 PM CDT 01/02/2024 12:33 PM CDT Hakan Nagy MD LAB BLOOD ORDERABLES [facility] Unless otherwise noted, all lab tests performed by: Division of Pathology and Laboratory Medicine [address] [place] [phone] * (ABNORMAL) ABG+ (ABG, Na, K, Cl, Glu, Hgb, Hct, Lactate, Ion Ca) (01/02/2024 10:38 AM [facility]ED [facility]) Only the most recent of2 resultswithin the time period is included. Sodium Arterial 140 136 - 146 mmol/L 01/02/2024 10:44 AM [facility] Potassium Arterial 3.7 3.4 - 4.5 mmol/L 01/02/2024 10:44 AM [facility] Chloride Arterial 103 98 - 106 mmol/L 01/02/2024 10:44 AM T [facility] Glucose Arterial 270(H) 70 - 105 mg/dL 01/02/2024 10:44 AM [facility] Hgb Art 12.9(L) 13.5 - 17.5 g/dL 01/02/2024 10:44 AM [facility] Hematocrit Arterial 40(L) 42 - 52 % 01/02/2024 10:44 AM [facility] Lactate Arterial 1.0(H) 0.4 - 0.8 mmol/L 01/02/2024 10:44 AM [facility] Calcium Ionized Arterial 1.14(L) 1.15 - 1.29 mmol/L 01/02/2024 10:44 AM [facility] pH Arterial 7.35 7.35 - 7.45 01/02/2024 10:44 AM [facility] P CO2 Arterial 42.9 35.0 - 48.0 mmHg 01/02/2024 10:44 AM [facility] P O2 Arterial 164(H) 83 - 108 mmHg 01/02/2024 10:44 AM [facility] Bicarbonate Arterial 24 21 - 28 mmol/L 01/02/2024 10:44 AM [facility] WB Anion Gap 13 7 - 16 mmol/L 01/02/2024 10:44 AM [facility] Base Excess Arterial -2 -2 - 3 mmol/L 01/02/2024 10:44 AM [facility] Oxygen Saturation Arterial 99 95 - 99 % 01/02/2024 10:44 AM [facility] Oxygen FLOW Rate/ FiO2 01/02/2024 10:44 AM [facility] O2 Therapy 01/02/2024 10:44 AM CDT [facility] Art Kirill Test Not Applicable (Arterial Line Draw) 01/02/2024 10:44 AM CDT [facility] Blood Arterial blood specimen / Unknown Arterial Line / Unknown 01/02/2024 10:38 AM CDT 01/02/2024 10:41 AM CDT Narrative [facility] - 01/02/2024 10:44 AM CDT The ABL90 Flex Plus analyzer is an in vitro diagnostic portable, automated analyzer that measures pH, blood gas, electrolytes, hemoglobin, glucose and lactate in whole blood. This analyzer uses the methodologies noted to perform quantitative measurement of the parameters listed when tested. 1) pH, pCO2, K+, Na+, Ca2+ and Cl- are measured by potentiometry. The potential of an electrode chain is measured by a voltmeter, and related to the concentration of the sample. 2) Glucose and Lactate are measured by amperometry. The magnitude of an electrical current that flows through an electrode chain is proportional to the concentration of the substance that is oxidized or reduced at a electrode in the chain. 3) pO2 is measured by optical pO2. The optical system for pO2 is based on the ability of O2 to reduce the intensity and time constant of the phosphorescence from a phosphorescent dye that is in contact with the sample. 4) Hemoglobin and sO2 are measured by spectrophotometry. Light passes through a cuvette that contains a hemolyzed blood sample. The absorption spectrum is used to calculate oximetry parameters. 5) Hematocrit is derive from the total hemoglobin multiplied by the standard value 0.0301. Alonzo Liu MD LAB BLOOD ORDERABLES [facility] Unless otherwise noted, all lab tests performed by: Division of Pathology and Laboratory Medicine [address] [place] [phone] * Intraoperative Ultrasound - For Image Storage (without Report) (01/02/2024 7:13 AM CDT) Narrative Systemgenerated, Documentation - 01/02/2024 7:13 AM CDT This procedure requires no interpretation from the radiologist. Margoth Souza MD IMG NON DI ORDERABLE S * CT Abdomen with and without Contrast (12/31/2023 4:41 PM CDT) Anatomical Region Laterality Modality Abdomen Computed Tomogra phy 12/31/2023 6:25 PM CDT Impressions 01/01/2024 8:36 AM CDT 1. Essentially stable biopsy-proven left-sided renal cell carcinoma. 2. Splenomegaly. 3. Other findings as described above. ACTIONABLE ITEMS/RECOMMENDATIONS*: See impression. *An Actionable Finding is a finding that may be unrelated to the original reason for imaging but potentially actionable, meaning further investigation may be necessary. The Actionable Findings Vigilance Unit (AFVU) assists medical providers with responding to additional radiologic findings that are unexpected and potentially actionable. Narrative 01/01/2024 8:36 AM CDT FULL RESULT: Examination: CT ABDOMEN W WO CONTRAST on 12/31/2023 4:41 PM. Clinical History: Renal mass. Indication: surveillance. Please complete with renal protocol.. Comparison: CT-guided biopsy dated 10/03/[address] scan of abdomen and pelvis dated 07/18/2023. Technique: CT ABDOMEN W WO CONTRAST. FINDINGS: Lower Thorax: Atelectasis or fibrosis is in the lung bases. There is a tiny granuloma in the left lower lobe on series 7, image 33. Thickening versus incomplete distention of the distal esophagus. Hepatobiliary: No suspicious hepatic lesion. No biliary dilatation. Tiny gallstone. No evidence of cholecystitis. Spleen: Enlarged measuring 13.9 cm in AP diameter, similar to previous. Pancreas: No mass or ductal dilatation. Adrenal Glands: A 1.6 cm left adrenal adenoma is stable. The right adrenal gland is unremarkable. Kidneys: 3.4 x 2.5 cm (previously 3.3 x 2.4 cm) multiseptated cystic enhancing mass that has been pathologically proven to represent clear cell renal cell carcinoma is noted in the inter to upper polar portion of the left kidney as seen on series 7, image 140. The mass is approximately two thirds exophytic but the margin does abut an upper pole calyx. In addition, the masses in very close proximity to the left renal vein. No hydronephrosis. Bilateral nonspecific perinephric stranding remains. Gastrointestinal Tract: No obstruction. Colonic interposition is noted. Peritoneum/Retroperitoneum: No free fluid or free air is seen. There are no peritoneal masses. Lymph Nodes: No lymphadenopathy. Musculoskeletal: Bone windows demonstrate degenerative changes. A stable fracture of L2 is seen. Procedure Note Ananth Hendrickson MD - 01/01/2024 FULL RESULT: Examination: CT ABDOMEN W WO CONTRAST on 12/31/2023 4:41 PM. Clinical History: Renal mass. Indication: surveillance. Please complete with renal protocol.. Comparison: CT-guided biopsy dated 10/03/[address] scan ofabdomen and pelvis dated 07/18/2023. Technique: CT ABDOMEN W WO CONTRAST. FINDINGS: Lower Thorax: Atelectasis or fibrosis is in the lung bases. There is atiny granuloma in the left lower lobe on series 7, image 33. Thickening versus incomplete distention of the distal esophagus. Hepatobiliary: No suspicious hepatic lesion. No biliary dilatation. Tinygallstone. No evidence of cholecystitis. Spleen: Enlarged measuring 13.9 cm in AP diameter, similar to previous. Pancreas: No mass or ductal dilatation. Adrenal Glands: A 1.6 cm left adrenal adenoma is stable. The right adrenalgland is unremarkable. Kidneys: 3.4 x 2.5 cm (previously 3.3 x 2.4 cm) multiseptated cysticenhancing mass that has been pathologically proven to represent clear cellrenal cell carcinoma is noted in the inter to upper polar portion of theleft kidney as seen on series 7, image 140. The mass is approximately twothirds exophytic but the margin does abut an upper pole calyx. Inaddition, the masses in very close proximity to the left renal vein. Nohydronephrosis. Bilateral nonspecific perinephric stranding remains. Gastrointestinal Tract: No obstruction. Colonic interposition is noted. Peritoneum/Retroperitoneum: No free fluid or free air is seen. There areno peritoneal masses. Lymph Nodes: No lymphadenopathy. Musculoskeletal: Bone windows demonstrate degenerative changes. A stablefracture of L2 is seen. IMPRESSION: 1. Essentially stable biopsy-proven left-sided renal cell carcinoma. 2. Splenomegaly. 3. Other findings as described above. ACTIONABLE ITEMS/RECOMMENDATIONS*: See impression. *An Actionable Finding is a finding that may be unrelated to the originalreason for imaging but potentially actionable, meaning furtherinvestigation may be necessary. The Actionable Findings Vigilance Unit(AFVU) assists medical providers with responding to additional radiologicfindings that are unexpected and potentially actionable. Margoth Souza MD IMG CT ORDERABLES * BB Preop Exp Date (12/23/2023 8:51 AM CDT) PREOP EXP DATE 01/22/2024 12/23/2023 2:19 PM CDT [facility] Blood Peripheral blood specimen / Unknown Venipuncture / Unknown 12/23/2023 8:51 AM CDT 12/23/2023 9:00 AM CDT Margoth Souza MD BLOOD BANK TEST KATYRay FRANKLINJARON [facility] [address] [facility] [id number] [place] [address] * Preop Updated Expiration (12/23/2023 8:51 AM CDT) PREOP STATUS 01/02/2024 11:33 PM CDT [facility] PREOP EXP DATE 01/02/2024 01/02/2024 11:33 PM CDT [facility] Blood Peripheral blood specimen / Unknown Venipuncture / Unknown 12/23/2023 8:51 AM CDT 12/23/2023 9:00 AM CDT Margoth Souza MD BLOOD BANK TEST ORDRay FRANKLINJARON [facility] [address] [facility] [facility] [id number] [place] [address] * (ABNORMAL) Urinalysis with Reflex Culture (12/23/2023 8:51 AM CDT) Only the most recent of2 resultswithin the time period is included. Urine Appearance Clear Clear 12/23/19 9:33 AM [facility] Urine Color Straw Colorless, Straw, Yellow, Dark Yellow, Straw-Yellow 12/23/2023 9:33 AM [facility] Urine Specific [place] 1.032 1.003 - 1.035 12/23/2023 9:33 AM [facility] Urine pH 6.0 5.0 - 8.0 12/23/2023 9:33 AM [facility] Urine Glucose >=1000(A) Negative mg/dL 12/23/2023 9:33 AM [facility] Urine Ketones Negative Negative mg/dL 12/23/2023 9:33 AM [facility] Urine Blood Negative Negative 12/23/2023 9:33 AM [facility] Urine Protein 30(A) Negative mg/dL 12/23/2023 9:33 AM [facility] Urine Bilirubin Negative Negative 9:33 AM [facility] Urine Urobilinogen Negative Negative 12/23/2023 9:33 AM [facility] Urine Nitrite Negative Negative 12/23/2023 9:33 AM [facility] Urine Leukocyte Esterase Negative Negative 12/23/2023 9:33 AM [facility] Urine Mucous Not Seen Not Seen, Trace /HPF 12/23/2023 9:33 AM [facility] Urine Bacteria Not Seen Not Seen /HPF 12/23/2023 9:33 AM [facility] Urine Squamous Epithelial Cells OCC Not Seen, OCC, Rare /HPF 12/23/2023 9:33 AM [facility] Urine WBC <1 <=2 /HPF 12/23/2023 9:33 AM [facility] Urine RBC 1 <=2 /HPF 12/23/2023 9:33 AM [facility] Urine Voided urine specimen / Unknown Non-blood Collection / Unknown 12/23/2023 8:51 AM T 12/23/2023 9:10 AM CDT [facility] - 12/23/2023 9:33 AM CDT Some reporting parameters within the Urinalysis test have changed due to the implementation of new instrumentation in the Main [place], allowing greater sensitivity of measurement. Urinalysis results reported by the [facility] using existing instrumentation, as well as Urinalysis testing performed manually or by back-up methodology at the main [place], will remain relatively unchanged. New reporting parameters and units will now be reported for all campuses. Margoth Souza MD URINE ORDERABLES [facility] Unless otherwise noted, all lab tests performed by: Division of Pathology and Laboratory Medicine [address] [place] [phone] * 30-Day Pre-Op Type and Screen (12/23/2023 8:51 AM CDT) Only the most recent of2 resultswithin the time period is included. ABORh O POS 12/23/2023 8:45 AM CDT [facility] ABSC Negative 12/23/2023 8:45 AM CDT [facility] BB Criteria Met Criteria met 12/23/2023 8:45 AM CDT [facility] Historical Record Check Complete 12/23/2023 8:45 AM CDT [facility] Blood Peripheral blood specimen / Unknown Venipuncture / Unknown 12/23/2023 8:51 AM CDT 12/23/2023 9:00 AM CDT Margoth Souza MD BLOOD BANK TEST ORDE RABJARON Performing Organization Address City/[facility]/ZIP Co de Phone Number [facility] The [facility] [address] [place] [address] [address] [place] [address] * TMP Interpretation Exception PreOp Expiration (12/23/2023 8:51 AM CDT) Only the most recent of2 resultswithin the time period is included. TMP Exception 12/24/2023 10:47 AM CDT [facility] TMP Signature . 12/24/2023 10:47 AM CDT [facility] Blood Peripheral blood specimen / Unknown Venipuncture / Unknown 12/23/2023 8:51 AM CDT 12/23/2023 9:00 AM CDT Margoth Souza MD BLOOD BANK TEST MIKE PEREZ [facility] The [facility] [address] [facility] [facility] [address] [place] [address] * (ABNORMAL) Comprehensive Metabolic Panel (12/23/2023 8:51 AM CDT) Only the most recent of2 resultswithin the time period is included. Bilirubin Total 0.3 0.0 - 1.2 mg/dL 12/23/2023 9:41 AM CDT [facility] Comment:Indocyanine Green (I CG) may cause falsely elevated bilirubin results. Total and direct bilirubin must not be measured from samples containing indocyanine green. False elevation of total bilirubin can be seen in patients with IgG concentrations above 28 g/L. eGFR 75 >=60 mL/min/1. 73 sq. m 12/23/2023 9:41 AM CDT [facility] Comment: The eGFRcr is calculated with the 2020 CKD-EPI creatinine equation using creatinine, patient's age, and sex for adults 18 years of age and older. Other factors, especially muscle mass, may affect accuracy and need to be considered. According to the Kidney Disease: Improving Global Outcomes (KDIGO) CKD Work Group 2012 Clinical Practice Guideline, chronic kidney disease (CKD) is defined as the abnormalities of kidney structure or function, present for more than 3 months, with implications for health. CKD should be classified by cause, GFR category, and albuminuria category. KDIGO guidelines provide the following GFR categories. Stage / Description / GFR mL/min/1.73 m2: G1* / Normal or high / >= 90 G2* / Mildly decreased / 60-89 G3a / Mildly to moderately decreased / 45-59 G3b / Moderately to severely decreased / 30-44 G4 / Severely decreased / 15-29 G5 / Kidney failure / <15 *In the absence of evidence of kidney damage, neither G1 nor G2 fulfill criteria for CKD. Tot Protein 7.5 6.4 - 8.3 gm/dL 12/23/2023 9:41 AM [facility] Calcium Level Total 9.9 8.2 - 10.2 mg/dL 12/23/2023 9:41 AM [facility] Alkaline Phosphatase 80 40 - 129 U/L 12/23/2023 9:41 AM [facility] Albumin Level 4.2 3.5 - 5.2 gm/dL 12/23/2023 9:41 AM [facility] AST 15 <=40 U/L 12/23/2023 9:41 AM [facility] ALT 14 <=41 U/L 12/23/2023 9:41 AM [facility] Sodium Level 138 136 - 145 mmol/L 12/23/2023 9:41 AM [facility] Potassium Level 4.2 3.4 - 4.5 mmol/L 12/23/2023 9:41 AM [facility] Chloride 101 98 - 107 mmol/L 12/23/2023 9:41 AM [facility] CO2 29 22 - 29 mmol/L 12/23/2023 9:41 AM [facility] Anion Gap 8 4 - 14 mmol/L 12/23/2023 9:41 AM [facility] Creatinine 1.13 0.67 - 1.17 mg/dL 12/23/2023 9:41 AM [facility] BUN 14 6 - 23 mg/dL 12/23/2023 9:41 AM [facility] Glucose Level 294(H) 70 - 99 mg/dL 12/23/2023 9:41 AM [facility] Comment: Effective 12/14/15, the glucose reference intervals have been updated based on [place] Diabetes Association guidelines (Standards of Medical Care in Diabetes 2016. Diabetes Care 2016; 39: S13-S22). Fasting blood glucose: Normal: 70-99 mg/dL Impaired fasting glucose (increased risk for diabetes or pre-diabetes): 100-125 mg/dL Diabetes mellitus: >/=126 mg/dL Random blood glucose: Normal: 70-199 mg/dL Note: Random glucose >100 mg/dL is associated with increased risk for diabetes. Blood Peripheral blood specimen / Unknown Venipuncture / Unknown 12/23/2023 8:51 AM CDT 12/23/2023 9:00 AM CDT Margoth Souza MD LAB BLOOD ORDERABLES Performing Organization Address [facility] de Phone Number [facility] Unless otherwise noted, all lab tests performed by: Division of Pathology and Laboratory Medicine [address] [place] [phone] * (ABNORMAL) Hemoglobin A1c (12/23/2023 8:51 AM CDT) Only the most recent of2 resultswithin the time period is included. Pathologist [facility] Hemoglobin A1c 9.7(H) 4.3 - 5.6 % 12/23/2023 9:34 AM CDT [facility] Blood Peripheral blood specimen / Unknown Venipuncture / Unknown 12/23/2023 8:51 AM CDT 12/23/2023 9:00 AM CDT Narrative [facility] - 12/23/2023 9:34 AM CDT HbA1c values >=6.5% are diagnostic of diabetes mellitus. Diagnosis should be confirmed by repeat testing. Therapeutic Action suggested: >8.0% HbA1c; Goal of therapy: <7.0% HbA1c Margoth Souza MD LAB BLOOD ORDERABLES Performing Organization Address [facility] de Phone Number [facility] Unless otherwise noted, all lab tests performed by: Division of Pathology and Laboratory Medicine [address] [place] [phone] * ACTH (12/09/2023 9:45 AM CDT) Only the most recent of2 resultswithin the time period is included. Pathologist [facility] ACTH 22 7 - 63 pg/mL 12/09/2023 12:19 PM CDT [facility] Blood Peripheral blood specimen / Unknown Venipuncture / Unknown 12/09/2023 9:45 AM CDT 12/09/2023 9:52 AM CDT Narrative [facility] - 12/09/2023 12:19 PM CDT Reference range established based on adult population (7 - 10am draws). No established reference values for p.m. draws. Results greater than 1826 pg/mL may not be reliable due to matrix effect with extended dilution as it exceeds the lbd teacher's recommended limit. ACTH reference intervals are established for the morning hours from 7-10 am. Due to the circadian rhythm of ACTH levels in plasma, the sample collection time must be noted. Caution should be exercised when interpreting such values and done in conjunction with clinical context. Veronica Del Castillo APRN LAB BLOOD ORDERABL ES [facility] Unless otherwise noted, all lab tests performed by: Division of Pathology and Laboratory Medicine [address] [place] [phone] * DHEA Sulfate (12/09/2023 9:45 AM CDT) Pathologist [facility] DHEAS-Logan 81 20 - 299 mcg/dL 12/10/2023 12:10 PM CDT [facility] Comment: Test Performed by: [facility] [address] [place] [address] [employer] Installer: Mary Jane Topete Ph.D.; CLIA# [id number] Blood Peripheral blood specimen / Unknown Venipuncture / Unknown 12/09/2023 9:45 AM CDT 12/09/2023 9:56 AM CDT Veronica Del Castillo APRN LAB BLOOD ORDERABL ES [facility] BEANAIS * Cortisol, Total (12/09/2023 9:45 AM CDT) Only the most recent of4 resultswithin the time period is included. Pathologist [facility] Cortisol 11.39 4.82 - 19.50 mcg/dL 12/09/2023 11:00 AM CDT [facility] Blood Peripheral blood specimen / Unknown Venipuncture / Unknown 12/09/2023 9:45 AM CDT 12/09/2023 9:55 AM CDT Narrative [facility] - 12/09/2023 11:00 AM CDT Cortisol reference intervals are established for the morning hours from 6-10 am and afternoon hours 4-8 pm. Due to circadian rhythm of cortisol levels in serum and plasma, the sample collection time must be noted. Caution should be exercised when interpreting such values and done in conjunction with clinical context. Serum Cortisol Reference Ranges for >/= 21 years old: Morning (6-10 am): 4.82 - 19.5 mcg/dL Afternoon (4-8 pm): 2.47 - 11.9 mcg/dL Veronica OrtaMónica MARIE LAB BLOOD ORDERABL ES [facility] Unless otherwise noted, all lab tests performed by: Division of Pathology and Laboratory Medicine [address] [place] [address] * IR CT GUIDED BIOPSY RENAL (10/03/2023 10:27 AM CDT) Anatomical Region Laterality Modality Abdomen/Pelvis, Organ (liver/spleen/kidney) Computed Tomography Narrative 10/04/2023 9:03 AM CDT Table formatting from the original result was not included. Date of Procedure: 10/03/23 Attending Physician: Kumar Comer MD Hand Coper: None Pre Procedure Diagnosis: Renal mass Post Procedure Diagnosis: Unchanged Indication: New mass / nodule for tissue diagnosis Protocol Number: N/A Title of Procedure: Percutaneous Computed Tomography-Guided Biopsy Operative Findings: Percutaneous image-guided biopsy of 3.5cm left kidney mass. Consent: The procedure, risks, indications and alternatives were explained. All questions were answered and informed consent was obtained. I have reviewed the history and physical dictated by the KEEGAN / fellow. Sedation/Anesthesia: Moderate sedation for pain control and anxiety was administered by a dedicated nurse under my supervision. There was continuous monitoring of oxygen saturation, heart rate and intermittent monitoring of blood pressure during the procedure. Medication given was midazolam and fentanyl. I was present for the administration of the medications indicated above. Procedure Events Event Event Time Sedation Start 10/03/2023 10:25 AM Sedation End 10/03/2023 10:45 AM Procedure in Detail: A time out was performed prior to the start of the procedure and the correct patient, procedure, presence of consent, site, and side were confirmed with all members of the team. With the patient in the prone position, the skin overlying the area of interest was prepped and draped in the usual sterile fashion. Lidocaine 1% was used for local anesthesia. Using a posterior approach under Computed Tomography image-guidance, a 19 gauge needle was advanced down to the left kidney mass. An image was obtained and placed into the medical record. Samples were obtained for evaluation. Sampling: Core Biopsy: A 20 gauge needle used to obtain samples for surgical pathology evaluation. Total number of samples: 5 Specimens Disposition: Diagnostic Biopsy: The biopsy samples were submitted to pathology. Additional Comments: None Estimated Blood Loss: Minimal Immediate Complications: None Disposition: PACU Plan: No follow-up with Interventional Radiology required. Shazia Arriaza MD [facility] IR ORDERABLES * Pathology Biopsy Interpretation (10/03/2023 10:19 AM CDT) Submitted Clinical History Renal mass [N28.89] 10/04/2023 9:52 AM CDT [employer] [facility] Diagnosis A: Kidney, left, biopsy: RENAL CELL CARCINOMA, CLEAR CELL TYPE, ISUP/WHO NUCLEAR GRADE 1. CCG/FGT 10/04/2023 9:52 AM CDT [facility] [facility] Gross Description A: Kidney, left, left kidney: Multiple soft castillo-brown tissue cores and core fragments, less than 0.1 cm - 0.2 cm in length and up to 0.1 cm in diameter, entirely submitted in A1. ET 10/04/2023 9:52 AM CDT [facility] [facility] Biomarker Block(s) Tumor: A1 10/04/2023 9:52 AM CDT [employer] [facility] Disclaimer "Some tests reported here may have been developed and performance characteristics determined by [facility] Pathology and Laboratory Medicine. These tests have not been specifically cleared or approved by the U.S. Food and Drug Administration. If applicable, controls were reviewed and showed appropriate reactivity." 10/04/2023 9:52 AM CDT [facility] [facility] Tissue (Kidney, Left) 10/03/2023 10:19 AM CDT 10/03/2023 12:29 PM CDT hSazia Arriaza MD LAB PATHOLOGY [facility] [address] [place] [address], * Prothrombin Time (10/03/2023 9:27 AM CDT) Prothrombin Time 12.6 11.9 - 14.5 second(s) 10/03/2023 9:57 AM CDT [facility] International Normalization Ratio 0.98 0.87 - 1.12 10/03/2023 9:57 AM CDT [facility] Blood Peripheral blood specimen / Unknown Venipuncture / Unknown 10/03/2023 9:27 AM CDT 10/03/2023 9:28 AM CDT Abilio Ng PA-C LAB BLOOD ORDERABL ES Performing Organization Address City/[facility]/ZIP Co de Phone Number [facility] [address] [place] [address] * Type and Screen (10/03/2023 9:27 AM CDT) ABORh O POS 10/03/2023 9:17 AM CDT [facility] ABSC Negative 10/03/2023 9:17 AM CDT [facility] Clot Expiration 10/06/2023 23:59 10/03/2023 9:17 AM CDT [facility] Historical Record Check Complete 10/03/2023 9:17 AM CDT [facility] Blood Peripheral blood specimen / Unknown Venipuncture / Unknown 10/03/2023 9:27 AM CDT 10/03/2023 9:52 AM CDT Abilio Ng PA-C BLOOD BANK TEST OR DERABLES [facility] [address] [place] [address] * X-ray Chest 2 Views (09/19/2023 9:24 AM CDT) Anatomical Region Laterality Modality Chest Digital Radiogra phy 09/19/2023 9:32 AM CDT Impressions 09/19/2023 9:33 AM CDT No radiographic evidence of acute cardiopulmonary disease. ACTIONABLE ITEMS/RECOMMENDATIONS*: None. *An Actionable Finding is a finding that may be unrelated to the original reason for imaging but potentially actionable, meaning further investigation may be necessary. The Actionable Findings Vigilance Unit (AFVU) assists medical providers with responding to additional radiologic findings that are unexpected and potentially actionable. Narrative 09/19/2023 9:33 AM CDT FULL RESULT: Examination: XR CHEST 2 VW on 09/19/2023 9:24 AM. Clinical History: Renal mass Indication: Baseline Chest X-Ray Comparison: None Technique: Posteroanterior, lateral and dual-energy radiographs of the chest Findings: Support Apparatus: None. Lungs/Pleura: Small calcified granuloma noted in the left lower lobe. No other pulmonary nodule, mass or consolidation is seen. There are no pleural effusions. No pneumothorax. Mediastinum/Heart: The cardiomediastinal silhouette is unremarkable. Procedure Note Julieth Bonner C.B., MD - 09/19/2023 FULL RESULT: Examination: XR CHEST 2 VW on 09/19/2023 9:24 AM. Clinical History: Renal mass Indication: Baseline Chest X-Ray Comparison: None Technique: Posteroanterior, lateral and dual-energy radiographs of thechest Findings: Support Apparatus: None. Lungs/Pleura: Small calcified granuloma noted in the left lower lobe. Noother pulmonary nodule, mass or consolidation is seen. There are nopleural effusions. No pneumothorax. Mediastinum/Heart: The cardiomediastinal silhouette is unremarkable. IMPRESSION: No radiographic evidence of acute cardiopulmonary disease. ACTIONABLE ITEMS/RECOMMENDATIONS*: None. *An Actionable Finding is a finding that may be unrelated to the originalreason for imaging but potentially actionable, meaning furtherinvestigation may be necessary. The Actionable Findings Vigilance Unit(AFVU) assists medical providers with responding to additional radiologicfindings that are unexpected and potentially actionable. Shazia Arriaza MD IMG DIAGNOSTIC [facility] ORDERABLES * EKG, 12-Lead (Scheduled) (09/19/2023) Shazia Arriaza MD ECG ORDERABLES Performing Organization Address City/[facility]/ZIP Co de Phone Number [facility] * Metanephrines Fractionated (09/16/2023 4:24 PM CDT) [facility] Normetane Free-Maxwell 0.43 <0.90 nmol/L 09/19/2023 2:59 PM CDT [facility] Metanephr Free-Maxwell <0.20 <0.50 nmol/L 09/19/2023 2:59 PM CDT [facility] Comment: ADDITIONAL INFORMATION This test was developed and its performance characteristics determined by [facility] in a manner consistent with CLIA requirements. This test has not been cleared or approved by the U.S. Food and Drug Administration. Test Performed by: [facility] [place] [address] [employer] Installer: Scot Skelton M.D. Ph.D.; CLIA# [id number] Blood Peripheral blood specimen / Unknown Venipuncture / Unknown 09/16/2023 4:24 PM CDT 09/16/2023 4:41 PM CDT Shazia Arriaza MD LAB BLOOD ORDERABL ES [facility] * Hepatitis C Virus Antibody (09/16/2023 4:24 PM CDT) [facility] HCVAb. Non Reactive Non Reactive 09/17/2023 9:11 AM CDT [facility] Blood Peripheral blood specimen / Unknown Venipuncture / Unknown 09/16/2023 4:24 PM CDT 09/16/2023 4:41 PM CDT Narrative [facility] - 09/17/2023 9:11 AM CDT Antibody detection in the immunocompromised and immunosuppressed population may be delayed or absent entirely. Therefore serial testing, correlation with other clinical findings, and supplemental testing (if available) should be taken into consideration when interpreting the results. Shazia Arriaza MD LAB BLOOD ORDERABL ES [facility] Unless otherwise noted, all lab tests performed by: Division of Pathology and Laboratory Medicine [address] [place] [id number] * Aldosterone Level (09/16/2023 4:24 PM CDT) Aldosterone-Logan 8.1 <=21 ng/dL 09/20/2023 1:02 AM CDT [facility] Comment: ADDITIONAL INFORMATION Reference range for patients 11 years and older is based on upright A.M. collection from subjects without sodium restrictions. This test was developed and its performance characteristics determined by [facility] in a manner consistent with CLIA requirements. This test has not been cleared or approved by the U.S. Food and Drug Administration. Test Performed by: [facility] - [address] [address] [employer] Installer: Scot Skelton M.D. Ph.D.; CLIA# [id number] Blood Peripheral blood specimen / Unknown Venipuncture / Unknown 09/16/2023 4:24 PM CDT 09/16/2023 4:41 PM CDT Shazia Arriaza MD LAB BLOOD ORDERABL ES [facility] TIFF * Renin Activity (09/16/2023 4:24 PM CDT) Pathologist [facility] Renin Activity-Logan 4.3 ng/mL/h 09/19 3:42 PM CDT [facility] Comment: REFERENCE VALUE (Peripheral vein specimen) Na-deplete, upright: Mean: 5.9 Range: 2.9-10.8 Na-replete, upright: Mean: 1.0 Range: < or =0.6-3.0 ADDITIONAL INFORMATION Testing performed by Liquid Chromatography-Tandem Mass Spectrometry (LC-MS/MS). This test was developed and its performance characteristics determined by [facility] in a manner consistent with CLIA requirements. This test has not been cleared or approved by the U.S. Food and Drug Administration. Test Performed by: [facility] [address] [place] [address] [employer] Installer: Scot Skelton M.D. Ph.D.; CLIA# [id number] Blood Peripheral blood specimen / Unknown Venipuncture / Unknown 09/16/2023 4:24 PM CDT 09/16/2023 4:41 PM CDT Shazia Arriaza MD LAB BLOOD ORDERABL ES [facility] * Urine Culture (09/16/2023 4:24 PM CDT) [facility] Urine Culture Normal site mirna present. Generally of low significance. Correlate with clinical data and culture history. 09/18/2023 8:31 AM CDT [facility] Urine Voided urine specimen / Unknown Non-blood Collection / Unknown 09/16/2023 4:24 PM CDT 09/16/2023 4:41 PM CDT Shazia Arriaza MD MICROBIOLOGY - GEN ERAL ORDERABLES Performing Organization Address City/[facility]/ZIP Co de Phone Number [facility] Unless otherwise noted, all lab tests performed by: Division of Pathology and Laboratory Medicine [address] [place] [phone] * TSH (09/16/2023 4:24 PM CDT) Pathologist [facility] Thyroid Stimulating Hormone 1.43 0.27 - 4.20 mcunit/mL 09/16/2023 5:23 PM CDT [facility] Blood Peripheral blood specimen / Unknown Venipuncture / Unknown 09/16/2023 4:24 PM CDT 09/16/2023 4:41 PM CDT Shazia Arriaza MD LAB BLOOD ORDERABL ES Performing Organization Address City/[facility]/ZIP Co de Phone Number [facility] [address] [place] [address] * T4 (09/16/2023 4:24 PM CDT) Pathologist [facility] Thyroxine 7.0 4.5 - 11.7 mcg/dL 09/16/2023 5:55 PM CDT [facility] Blood Peripheral blood specimen / Unknown Venipuncture / Unknown 09/16/2023 4:24 PM CDT 09/16/2023 4:41 PM CDT Shazia Arriaza MD LAB BLOOD ORDERABL ES Performing Organization Address City/[facility]/ZIP Co de Phone Number [facility] Unless otherwise noted, all lab tests performed by: Division of Pathology and Laboratory Medicine [address] [place] [phone] * Confirm ABORh (09/16/2023 4:23 PM CDT) Pathologist [facility] ABORh Confirm O POS 09/16/2023 4:15 PM CDT [facility] Blood Peripheral blood specimen / Unknown Venipuncture / Unknown 09/16/2023 4:23 PM CDT 09/16/2023 4:41 PM CDT Shazia Arriaza MD BLOOD BANK TEST OR DERABLES [facility] [address] [place] [address] * OSI CT Abdomen and Pelvis (07/18/2023 7:40 AM VEGETABLE HARVEST WORKER) Narrative Systemgenerated, Documentation - 08/08/2023 7:40 AM CDT Study acquired at another institution. For comparison only. No Pernell originated interpretation requested or available. Margoth Souza MD IMG OUTSIDE IMAGE OR DERABLES * OSI CT Brain (07/17/2023 7:40 AM VEGETABLE HARVEST WORKER) Narrative Systemgenerated, Documentation - 08/08/2023 7:40 AM CDT Study acquired at another institution. For comparison only. No MD Gimenez originated interpretation requested or available. Margoth Souza MD IMG OUTSIDE IMAGE OR DERABLES after 01/06/2023 Advance Directives * Full Code (Latest Code Status on File) Date Activated Date Inactivated Comments 01/02/2024 1:48 PM 01/03/2024 7:17 PM Care Teams Actuarial Director Relationship Specialty Start Date End Date Margoth Souza MD [address] [place] [address] [email or web address] - General Urology 07/30/23 Mary Jane Cassidy MD [address] [place] [phone] [email or web address] Consulting Physician [email or web address] 12/09/23 Barry He MD [address] [place] [phone] [email or web address] Consulting Physician Internal Medicine 12/23/23 Patience Hunt MD [address] [place] [phone] [email or web address] Consulting Physician Endocrinology 12/31/23
== END 2024-01-06 09:43 | disposition home or self-care (01) ==
LOC: ER 06:37
DX: M79.10 Myalgia, unspecified site (principal); R10.84 Generalized abdominal pain; R06.02 Shortness of breath; Z90.5 Acquired absence of kidney; Z11.52 Encounter for screening for COVID-19; E11.9 Type 2 diabetes mellitus without complications; I10 Essential (primary) hypertension
CPT/HCPCS: 85025; 36415; 82947; 80053; 71275; 74177; 87811; Q9967

== ENCOUNTER 2024-01-09 10:30 | Inpatient (IN) | payer BC ==
--- OUTSIDE RECORDS SUMMARY | 2024-01-09 10:34 | XMS REPORT | Clinical Summary ---
Author Name Unknown Organization [facility] Address [address] [place] [address] Care Team Providers Care Loss Prevention Representative Name Role Phone Margoth Souza MD Primary Care Provider [phone] Mary Jane Cassidy MD Unavailable [phone] Barry He MD Unavailable Patience Hunt MD [...] than 9% indicating poor diabetic control 01/02/2024 technician terminal and repeater current use of systemic steroid 2023 Adverse [...] AM CDT Ancillary Procedure MAIN OR [address] [phone] Margoth Souza MD 01/02/2024 7:00 AM CDT - 01/02/2024 11:40 AM CDT Surgery MAIN OR [address] [place] [address] Margoth Souza MD ROBOTIC ASSISTED PARTIAL NEPHRECTOMY 01/02/2024 6:58 AM CDT Anesthesia Event MAIN OR [address] [place] [address] Alonzo Liu MD Majekodumi, Jessy, CRNA 01/02/2024 5:04 AM CDT - 01/03/2024 5:05 PM CDT Hospital Encounter MAIN P09B [address] [place] [address] Margoth Souza MD Renal mass (Primary Dx) Discharge Disposition: Home 01/02/2024 Travel 12/31/2023 1:04 PM CDT - 12/31/2023 11:59 PM CDT Hospital Encounter Main CT IMAGING [address] [place] [address], 3rd Floor Elevator [place] [phone] Margoth Souza MD Renal mass Discharge Disposition: Home 12/31/2023 8:00 AM CDT Consult [facility]ocrine Center [address] [place] [address], [address] [place], [place] [address]ator [place] [phone] Nakia Kirby APRN Khan, Sonya, MD Type 2 diabetes mellitus with hyperglycemia [E11.65] (Primary Dx); Pre-surgery evaluation 12/30/2023 9:30 AM CDT Office Visit [facility] [address] [place] [address], 7th [place] [address] Margoth Souza MD Renal mass 12/30/2023 Travel 12/30/2023 Telephone Endocrine Center [address] [place] [address], [address] [place], [place] [phone] Winnie Archibald, RN Appointment (Cannot get internet-phone broke) 12/30/2023 Orders Only [facility] [address] [place] [address], 7th [place] [address] Roberto Poole PA Renal mass (Primary Dx) 12/29/2023 Orders Only Endocrine Center [address] [place] [address], [address] [place], [place] [address] [address] Veronica Del Castillo APRN 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); Endocrine/metabolic screening; Renal cell carcinoma <Left side> 12/25/2023 8:36 AM CDT Anesthesia Event [facility] [address] [place] [address], [address] [place] [address] [place] [address] Lien Antonio, RN 12/23/2023 10:30 AM CDT Consult Perioperative Evaluation and Management [address] [place] [address], [address] [place], [place] [address] [address] Margoth Souza MD Oh, Jeong, MD Encounter for other preprocedural examination (Primary Dx); Renal mass; Hyperlipidemia, not otherwise specified 12/23/2023 9:00 AM CDT POEM Appointments [facility] [address] [place] [address] Margoth Souza MD Pre-surgery evaluation (Primary Dx) 12/23/2023 8:45 AM CDT - 12/23/2023 11:59 PM CDT Hospital Encounter [facility] [address] [place] [address] Margoth Souza MD Renal mass Discharge Disposition: Home 12/23/2023 Travel 12/09/2023 9:33 AM CDT - 12/09/2023 11:59 PM CDT Hospital Encounter [facility] [address] [place] [address] Veronica Del Castillo APRN 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; Endocrine/metabolic screening Discharge Disposition: Home 12/09/2023 8:30 AM CDT Consult Endocrine Center [address] [place], [place] [phone] Mary Jane Cassidy MD 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); Endocrine/metabolic screening; Renal cell carcinoma <Left side> 12/09/2023 Travel 10/23/2023 Orders Only [facility] [address] [facility], 7th [place] [address] Roberto Poole PA Renal mass (Primary Dx); Adrenal mass 10/03/2023 9:30 AM CDT - 10/03/2023 11:59 PM CDT Hospital Encounter Interventional Radiology [address] [place] [address], 4th [place] [address] Shazia Arriaza MD McRae, Stephen, MD Renal mass Discharge Disposition: Home 10/03/2023 8:30 AM CDT - 10/03/2023 9:29 AM CDT Hospital Encounter [facility] [address] [place] [address] Margoth Souza MD Renal mass Discharge Disposition: Home 10/03/2023 Travel 10/02/2023 8:24 AM CDT - 10/02/2023 11:59 PM CDT Hospital Encounter Interventional Radiology [address] [place] [address], 4th [place] [address] Margoth Souza MD Ho, ThanDannielle Horn PA-C Encounter for other preprocedural examination (Primary Dx); Renal mass; 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 Discharge Disposition: Home 10/02/2023 Travel 09/24/2023 7:46 AM CDT - 09/24/2023 11:59 PM CDT Hospital Encounter [facility] [address] [place] [address] Roberto Poole PA Adrenal mass Discharge Disposition: Home 09/20/2023 Orders Only [facility] [address] [place] [address], 7th [place] [address] Roberto Poole PA Adrenal mass (Primary Dx) 09/19/2023 11:45 AM CDT Ancillary Procedure X-Ray Outpatient Center [address] [place] [address], 7th [place] [address] Shazia Arriaza MD Renal mass 09/19/2023 9:20 AM CDT - 09/19/2023 11:59 PM CDT Hospital Encounter [facility] [address] [place] [address] Shazia Arriaza MD Adenoma, NOS of adrenal gland, NOS <Left> Discharge Disposition: Home 09/19/2023 Orders Only Interventional Radiology [address] [place] [address], 4th [place] [address] Abilio Ng PA-C Renal mass (Primary Dx) 09/19/2023 Travel 09/19/2023 Telephone MD Gimenez [facility] [address] [place] [address] Barbara Rees MA 09/16/2023 4:00 PM CDT - 09/16/2023 11:59 PM CDT Hospital Encounter [facility] [address] [place] [address] Shazia Arriaza MD Renal mass; Adrenal mass Discharge Disposition: Home 09/16/2023 2:00 PM CDT Office Visit [facility] [address] [place] [address], 7th [place] [address] Margoth Souza MD Renal mass (Primary Dx); Adrenal mass; Adenoma, NOS of adrenal gland, NOS <Left>; 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 09/16/2023 12:30 PM CDT NPR MDA PATIENT ACCESS 09/16/2023 Travel 08/08/2023 8:00 PM CDT Ancillary Procedure [facility] [address] [place] [address] Margoth Souza MD Cancer 08/08/2023 6:40 AM CDT Ancillary Procedure [facility] [address] [place] [address] Margoth Souza MD Cancer after 01/09/2023 Surgical History Surgery Date Site/Laterality Comments TOE AMPUTATION x2, 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, 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 APPENDECTOMY 05/20/1973 - 05/19/1974 Open WRIST SURGERY Left HAND SURGERY Right HIP ARTHRODESIS W/ ILIAC CREST BONE GRAFT Bilateral For hand surgeries CERVICAL SPINE SURGERY C3-6 fusion, x2 NH LAPAROSCOPY SURG PARTIAL NEPHRECTOMY 01/02/2024 Abdomen/Left Procedure: ROBOTIC ASSISTED PARTIAL NEPHRECTOMY; Surgeon: Margoth Souza MD; Location: MAIN OR; Service: UROLOGY NH ULTRASONIC GUIDANCE INTRAOPERATIVE 01/02/2024 Left Procedure: INTROPERATIVE [...] 01/02/2024 2:32 PM CDT Plan of Treatment Upcoming Encounters Date Type Department Care Team (Late st Contact Info) Description 02/08/2024 1:30 PM CDT Appointment [facility] [address] [place] [address], [place] [address] Margoth Souza MD [address] [place] [phone] [email or web address] 02/10/2024 3:30 PM CDT Telemedicine [facility] [address] [facility], 7th Floor Ele[address] [place], [place] [phone] Margoth Souza MD [address] [place] [phone] [email or web address] Health Maintenance Due Date Last Done Comments Pneumococcal Vaccine: Pediat rics (0 to 5 Years) and At-Risk Patients (6 to 64 Years) (1 of 2 - PCV) 01/09/1970 01/09/1975 COVID-19 Vaccine ( - season) 2023 Influenza Vaccine 01/19/2024 08/04/2018 Procedures [...] GLUCOSE SCREEN Routine 01/03/2024 7:04 AM CDT GAD65 AB ASSAY SERUM Routine 01/03/2024 4:22 AM CDT ISLET ANTIGEN 2 (IA-2) ANTIBODY Routine 01/03/2024 4:22 AM CDT INSULIN ANTIBODY Routine 01/03/2024 4:22 AM CDT BASIC METABOLIC PANEL, CALCIUM TOTAL [...] AM CDT ARTERIAL BLOOD GAS PLUS STAT 08/15/20 24 8:42 AM CDT POC GLUCOSE SCREEN Routine 01/02/2024 8:18 AM CDT INTRAOPERATIVE US STAT 01/02/2024 7:13 AM CDT NH ULTRASONIC GUIDANCE INTRAOPERATIVE 01/02/2024 6:08 AM CDT Renal mass Special Needs [email or web address]:Please collect and send tissue to pathology window with appropriate label. NH LAPAROSCOPY SURG PARTIAL NEPHRECTOMY 01/02/2024 6:08 AM CDT Renal mass Special Needs [email or web address]:Please collect and send tissue to pathology window with appropriate label. POC GLUCOSE SCREEN Routine 01/02/2024 6:[address] ABDOMEN W WO CONTRAST Routine 024 4:41 PM CDT Renal mass BB PREOP [...] ABDOMEN AND PELVIS Routine 2023 7:40 AM [employer] Cancer OSI CT BRAIN Routine 07/17/2023 7:40 AM [employer] Cancer after 01/09/2023 Results * (ABNORMAL) Basic Metabolic Panel- Total Calcium (01/03/2024 2:59 PM CDT) Only the most recent of7 resultswithin the time period is included. eGFR 71 >=60 mL/min/1. 73 sq. m 01/03/2024 3:44 PM CDT [facility] Comment: The eGFRcr is calculated with the [...] - 10.2 mg/dL 01/03/2024 3:44 PM CDT [facility] Sodium Level 139 136 - 145 mmol/L 01/03/2024 3:44 PM CDT [facility] Potassium Level 3.9 3.4 - 4.5 mmol/L 01/03/2024 3:44 PM CDT [facility] Chloride 103 98 - 107 mmol/L 01/03/2024 3:44 PM CDT [facility] CO2 28 22 - 29 mmol/L 01/03/2024 3:44 PM CDT [facility] Anion Gap 8 4 - 14 mmol/L 01/03/2024 3:44 PM CDT [facility] Creatinine 1.18(H) 0.67 - 1.17 mg/dL 01/03/2024 3:44 PM CDT [facility] BUN 15 6 - 23 mg/dL 01/03/2024 3:44 PM CDT [facility] Glucose Level 137(H) 70 - 99 mg/dL 01/03/2024 3:44 PM CDT [facility] Comment: Effective 12/14/15, the glucose reference intervals have been updated based on [place] [employer] guidelines (Standards of Medical Care [...] PM CDT 01/03/2024 3:02 PM CDT Alicia Mcmanus APRN LAB BLOOD ORDERABLE S [facility] Unless otherwise noted, all lab tests performed by: Division of Pathology and Laboratory Medicine [address] [place] [id number] * POC Glucose Screen - Fingerstick (01/03/2024 11:19 AM CDT) Only the most recent of15 resultswithin the time period is included. Glucose Screen 70 70 - 99 mg/dL 01/03/2024 11:20 AM CDT [facility] POC Sample Type Capillary 01/03/2024 11:20 AM CDT [facility] Blood 01/03/2024 11:1 9 AM CDT 01/03/2024 11:20 AM CDT Narrative [facility] - 01/03/2024 11:20 AM CDT Capillary blood [...] ORDERABLES - DE VICE Performing Organization Address City/[facility]/ZIP Co de Phone Number [facility] Unless otherwise noted, all lab tests performed by: Division of Pathology and Laboratory Medicine [address] [place] [address] * Islet Antigen 2 (IA-2) Antibody (01/03/2024 4:22 AM CDT) Pathologist [facility] IA-2 Antibody 0.00 <=0.02 nmol/L 01/07/2024 12:20 AM CDT [facility] TIFF Comment: ADDITIONAL INFORMATION This test was developed and its performance characteristics determined by [facility] in a manner consistent with CLIA requirements. This test has not been cleared or approved by the U.S. Food and Drug Administration. Test Performed by: [facility] - [address] [address] [employer] Equipment Test Engineer: Mary Jane Topete Ph.D.; CLIA# [id number] Blood Peripheral blood specimen / Unknown Venipuncture / Unknown 01/03/2024 4:22 AM CDT 01/03/2024 4:55 AM CDT Alicia Mcmanus APRN LAB BLOOD ORDERABLE S Performing Organization Address City/[facility]/ZIP Co de Phone Number [facility] * GREG Ab Assay (01/03/2024 4:22 AM CDT) Pathologist [facility] GAD65 Ab-Coral 0.00 <=0.02 nmol/L 01/07/2024 12:01 AM CDT [facility] TIFF Comment: ADDITIONAL INFORMATION This test was developed and its performance characteristics determined by [facility] in a manner consistent with CLIA requirements. This test has not been cleared or approved by the U.S. Food and Drug Administration. Test Performed by: [facility] [place] [address] Agricultural Equipment Test Engineer: Mary Jane Topete Ph.D.; CLIA# [id number] Blood Peripheral blood specimen / Unknown Venipuncture / Unknown 01/03/2024 4:22 AM CDT 01/03/2024 4:55 AM CDT Alicia Mcmanus APRN LAB BLOOD ORDERABLE S Performing Organization Address City/[facility]/ZIP Co de Phone Number [facility] TIFF * Insulin Ab (01/03/2024 4:22 AM CDT) Pathologist [facility] Insulin Ab-Maxwell 0.00 0.00 - 0.02 nmol/L 01/06/2024 5:14 PM CDT [facility] TIFF Comment: ADDITIONAL INFORMATION This test was developed and its performance characteristics determined by [facility] in a manner consistent with CLIA requirements. This test has not been cleared or approved by the U.S. Food and Drug Administration. Test Performed by: [facility] - [address] [address] [employer] Equipment Test Engineer: Mary Jane Topete Ph.D.; CLIA# [id number] Blood Peripheral blood specimen / Unknown Venipuncture / Unknown 01/03/2024 4:22 AM CDT 01/03/2024 4:55 AM CDT Alicia Mcmanus APRN LAB BLOOD ORDERABLE S [facility] * C Peptide (01/03/2024 4:22 AM CDT) Pathologist [facility] C-Peptide 2.12 1.10 - 4.40 ng/mL 01/03/2024 5:48 AM CDT [facility] Blood Peripheral blood specimen / Unknown Venipuncture / Unknown 01/03/2024 4:22 AM CDT 01/03/2024 4:55 AM CDT Alicia Mcmanus [employer] LAB BLOOD ORDERABLE S [facility] Unless otherwise noted, all lab tests performed by: Division of Pathology and Laboratory Medicine [address] [place] [id number] * (ABNORMAL) Hemogram (01/02/2024 7:20 PM CDT) [facility] White Blood Cell 13.8(H) 4.1 - 10.5 K/uL 01/02/2024 7:33 PM CDT [facility] Red Blood Cell 4.74 4.30 - 6.04 M/uL 01/02/2024 7:33 PM CDT [facility] Hemoglobin 12.2(L) 13.3 - 17.4 g/dL 01/02/2024 7:33 PM CDT [facility] Hematocrit 38.6(L) 39.5 - 51.8 % 01/02/2024 7:33 PM CDT [facility] Mean Cell Volume 81(L) 82 - 99 fL 01/02/2024 7:33 PM CDT [facility] Mean Cell Hemoglobin 25.7(L) 26.6 - 33.2 pg 01/02/2024 7:33 PM CDT [facility] Mean Cell Hemoglobin Concentration 31.6 31.1 - 35.2 g/dL 01/02/2024 7:33 PM CDT [facility] RDW-SD 39.1 37.5 - 49.7 fL 01/02/2024 7:33 PM CDT [facility] Red Cell Diameter Width 13.1 11.6 - 15.5 % 01/02/2024 7:33 PM CDT [facility] Platelet 291 160 - 397 K/uL 01/02/2024 7:33 PM CDT [facility] Mean Platelet Volume 9.7 9.1 - 12.6 fL 01/02/2024 7:33 PM CDT [facility] INRBC 0.0 0.0 - 0.1 /100 WBC 01/02/2024 7:33 PM CDT [facility] Comment: The INRBC (instrument NRBC) value reflects [...] PM CDT Derian PRICE LAB BLOOD ORDERABLES [facility] Unless otherwise noted, all lab tests performed by: Division of Pathology and Laboratory Medicine [address] [place] [id number] * (ABNORMAL) Beta Hydroxy Quant (01/02/2024 7:20 PM CDT) Only the most recent of2 resultswithin the time period is included. Beta-Hydroxybuty rate 0.85(H) 0.02 - 0.27 mmol/L 01/02/2024 8:01 PM CDT [facility] Is patient fasting? No 01/02/2024 8:01 PM CDT [facility] Comment:A fasting specimen i s recommended and results obtained from non-fasting specimens should be interpreted with caution using reference ranges based on fasting status and in conjunction with clinical context. Blood Peripheral blood specimen / Unknown Venipuncture / Unknown 01/02/2024 7:20 PM CDT 01/02/2024 7:24 PM CDT Narrative [facility] - 01/02/2024 8:01 PM CDT Reference range based on fasting. Aliciakeyon Restreporoy [employer] LAB BLOOD ORDERABLE S [facility] Unless otherwise noted, all lab tests performed by: Division of Pathology and Laboratory Medicine [facility] [place] [address] * (ABNORMAL) .CBC (01/02/2024 12:19 PM CDT) Only the most recent of3 resultswithin the time period is included. White Blood Cell 11.6(H) 4.1 - 10.5 K/uL 01/02/2024 12:39 PM CDT [facility] Red Blood Cell 4.71 4.30 - 6.04 M/uL 01/02/2024 12:39 PM CDT [facility] Hemoglobin 12.4(L) 13.3 - 17.4 g/dL 01/02/2024 12:39 PM CDT [facility] Hematocrit 38.1(L) 39.5 - 51.8 % 01/02/2024 12:39 PM CDT [facility] Mean Cell Volume 81(L) 82 - 99 fL 01/02/2024 12:39 PM CDT [facility] Mean Cell Hemoglobin 26.3(L) 26.6 - 33.2 pg 01/02/2024 12:39 PM CDT [facility] Mean Cell Hemoglobin Concentration 32.5 31.1 - 35.2 g/dL 01/02/2024 12:39 PM CDT [facility] RDW-SD 39.0 37.5 - 49.7 fL 01/02/2024 12:39 PM CDT [facility] Red Cell Diameter Width 13.3 11.6 - 15.5 % 01/02/2024 12:39 PM CDT [facility] Platelet 305 160 - 397 K/uL 01/02/2024 12:39 PM CDT [facility] Mean Platelet Volume 9.7 9.1 - 12.6 fL 01/02/2024 12:39 PM CDT [facility] INRBC 0.0 0.0 - 0.1 /100 WBC 01/02/2024 12:39 PM CDT [facility] Comment: The INRBC (instrument NRBC) value reflects the enumeration of nucleated red blood cells contained in a 200uL sample of whole blood analyzed by the instrument. This value may differ from the NRBC value reported in a manual differential, which is based on a 100 cell differential. Neutrophil % 90.6(H) 43.2 - 72.7 % 01/02/2024 12:39 PM CDT [facility] Lymphocyte % 6.8(L) 16.8 - 46.2 % 01/02/2024 12:39 PM CDT [facility] Monocyte % 1.9(L) 5.1 - 12.5 % 01/02/2024 12:39 PM CDT [facility] Eosinophil % 0.1(L) 0.4 - 6.3 % 01/02/2024 12:39 PM CDT [facility] Basophil % 0.3 0.2 - 1.4 % 01/02/2024 12:39 PM CDT [facility] IGRE % 0.3 0.1 - 1.5 % 01/02/2024 12:39 PM CDT [facility] Comment:The IGRE% includes M etamyelocytes, Myelocytes and Promyelocytes. Neutrophil Abs 10.48(H) 1.95 - 7.25 K/uL 01/02/2024 12:39 PM CDT [facility] Lymphocyte Abs 0.79(L) 1.01 - 3.24 K/uL 01/02/2024 12:39 PM CDT [facility] Monocyte Abs 0.22(L) 0.24 - 0.85 K/uL 01/02/2024 12:39 PM CDT [facility] Eosinophil Abs 0.01(L) 0.02 - 0.50 K/uL 01/02/2024 12:39 PM CDT [facility] Basophil Abs 0.03 0.02 - 0.09 K/uL 01/02/2024 12:39 PM CDT [facility] IG Abs 0.03 0.01 - 0.12 K/uL 01/02/2024 12:39 PM T [facility] Blood Peripheral blood specimen / Unknown Venipuncture / Unknown 01/02/2024 12:19 PM CDT 01/02/2024 12:33 PM CDT Hakan Nagy MD LAB BLOOD ORDERABLES [facility] Unless otherwise noted, all lab tests performed by: Division of Pathology and Laboratory Medicine [address] [place] [address] * (ABNORMAL) ABG+ (ABG, Na, K, Cl, Glu, Hgb, Hct, Lactate, Ion Ca) (01/02/2024 10:38 AM CDT) Only the most recent of2 resultswithin the time period is included. Sodium Arterial 140 136 - 146 mmol/L 01/02/2024 10:44 AM CDT [facility] Potassium Arterial 3.7 3.4 - 4.5 mmol/L 01/02/2024 10:44 AM CDT [facility] Chloride Arterial 103 98 - 106 mmol/L 01/02/2024 10:44 AM CDT [facility] Glucose Arterial 270(H) 70 - 105 mg/dL 01/02/2024 10:44 AM CDT [facility] Hgb Art 12.9(L) 13.5 - 17.5 g/dL 01/02/2024 10:44 AM CDT [facility] Hematocrit Arterial 40(L) 42 - 52 % 01/02/2024 10:44 AM CDT [facility] Lactate Arterial 1.0(H) 0.4 - 0.8 mmol/L 01/02/2024 10:44 AM CDT [facility] Calcium Ionized Arterial 1.14(L) 1.15 - 1.29 mmol/L 01/02/2024 10:44 AM CDT [facility] pH Arterial 7.35 7.35 - 7.45 01/02/2024 10:44 AM CDT [facility] P CO2 Arterial 42.9 35.0 - 48.0 mmHg 01/02/2024 10:44 AM CDT [facility] P O2 Arterial 164(H) 83 - 108 mmHg 01/02/2024 10:44 AM CDT [facility] Bicarbonate Arterial 24 21 - 28 mmol/L 01/02/2024 10:44 AM CDT [facility] WB Anion Gap 13 7 - 16 mmol/L 01/02/2024 10:44 AM CDT [facility] Base Excess Arterial -2 -2 - 3 mmol/L 01/02/2024 10:44 AM CDT [facility] Oxygen Saturation Arterial 99 95 - 99 % 01/02/2024 10:44 AM CDT [facility] Oxygen FLOW Rate/ FiO2 01/02/2024 10:44 AM CDT [facility] O2 Therapy 01/02/2024 10:44 AM CDT [facility] Art Kirill Test Not Applicable (Arterial Line Draw) 01/02/2024 10:44 AM CDT [facility] Blood Arterial blood specimen / Unknown Arterial Line / Unknown 01/02/2024 10:38 AM CDT 01/02/2024 10:41 AM CDT Narrative [facility] - 01/02/2024 10:44 AM CDT The ABL90 [...] 0.0301. Alonzo Liu MD LAB BLOOD ORDERABLES [facility] Unless otherwise noted, all lab tests performed by: Division of Pathology and Laboratory Medicine [address] [place] [id number] * Intraoperative Ultrasound - For Image Storage [...] EXP DATE 01/22/2024 12/23/2023 2:19 PM CDT [facility] Blood Peripheral blood specimen / Unknown Venipuncture / Unknown 12/23/2023 8:51 AM CDT 12/23/2023 9:00 AM CDT Margoth Souza MD BLOOD BANK TEST MIKE PEREZ [facility] [address] [facility] [address] [place] [address] * Preop Updated Expiration (12/23/2023 8:51 AM CDT) PREOP STATUS 01/02/2024 11:33 PM CDT [facility] PREOP EXP DATE 01/02/2024 01/02/2024 11:33 PM CDT [facility] Blood Peripheral blood specimen / Unknown Venipuncture / Unknown 12/23/2023 8:51 AM CDT 12/23/2023 9:00 AM CDT Margoth Souza MD BLOOD BANK TEST ORDRay PEREZ [facility] [address] [place] [address] * (ABNORMAL) Urinalysis with Reflex Culture (12/23/2023 8:51 AM CDT) Only the most recent of2 resultswithin the time period is included. Urine Appearance Clear Clear 12/23/19 9:33 AM CDT [facility] Urine Color Straw Colorless, Straw, Yellow, Dark Yellow, Straw-Yellow 12/23/2023 9:33 AM CDT [facility] Urine Specific Scooba 1.032 1.003 - 1.035 12/23/2023 9:33 AM CDT [facility] Urine pH 6.0 5.0 - 8.0 12/23/2023 9:33 AM CDT [facility] Urine Glucose >=1000(A) Negative mg/dL 12/23/2023 9:33 AM CDT [facility] Urine Ketones Negative Negative mg/dL 12/23/2023 9:33 AM CDT [facility] Urine Blood Negative Negative 12/23/2023 9:33 AM CDT [facility] Urine Protein 30(A) Negative mg/dL 12/23/2023 9:33 AM CDT [facility] Urine Bilirubin Negative Negative 9:33 AM CDT [facility] Urine Urobilinogen Negative Negative 12/23/2023 9:33 AM CDT [facility] Urine Nitrite Negative Negative 12/23/2023 9:33 AM CDT [facility] Urine Leukocyte Esterase Negative Negative 12/23/2023 9:33 AM CDT [facility] Urine Mucous Not Seen Not Seen, Trace /HPF 12/23/2023 9:33 AM CDT [facility] Urine Bacteria Not Seen Not Seen /HPF 12/23/2023 9:33 AM CDT [facility] Urine Squamous Epithelial Cells OCC Not Seen, OCC, Rare /HPF 12/23/2023 9:33 AM CDT [facility] Urine WBC <1 <=2 /HPF 12/23/2023 9:33 AM CDT [facility] Urine RBC 1 <=2 /HPF 12/23/2023 9:33 AM CDT [facility] Urine Voided urine specimen / Unknown Non-blood Collection / Unknown 12/23/2023 8:51 AM CDT 12/23/2023 9:10 AM CDT Narrative [facility] - 12/23/2023 9:33 AM CDT Some reporting parameters within the Urinalysis test have changed due to the implementation of new instrumentation in the Main [place], allowing greater sensitivity of measurement. Urinalysis results reported by the [facility] using existing instrumentation, as well as Urinalysis testing performed manually or by back-up methodology at the main [place], will remain relatively unchanged. New reporting parameters and units will now be reported for all campuses. Margoth Souza MD URINE ORDERABLES [facility] Unless otherwise noted, all lab tests performed by: Division of Pathology and Laboratory Medicine [address] [place] [address] * 30-Day Pre-Op Type and Screen (12/23/2023 8:51 AM CDT) Only the most recent of2 resultswithin the time period is included. ABORh O POS 12/23/2023 8:45 AM CDT [facility] ABSC Negative 12/23/2023 8:45 AM CDT [facility] BB Criteria Met Criteria met 12/23/2023 8:45 AM CDT [facility] Historical Record Check Complete 12/23/2023 8:45 AM CDT [facility] Blood Peripheral blood specimen / Unknown Venipuncture / Unknown 12/23/2023 8:51 AM CDT 12/23/2023 9:00 AM CDT Margoth Souza MD BLOOD BANK TEST ORDE RABLES [facility] [facility] [address] [place] [address] * TMP Interpretation Exception PreOp Expiration (12/23/2023 8:51 AM CDT) Only the most recent of2 resultswithin the time period is included. TMP Exception 12/24/2023 10:47 AM CDT [facility] TMP Signature . 12/24/2023 10:47 AM CDT [facility] Blood Peripheral blood specimen / Unknown Venipuncture / Unknown 12/23/2023 8:51 AM CDT 12/23/2023 9:00 AM CDT Margoth Souza MD BLOOD BANK TEST ORDE ANA [facility] [address] [place] [address] * (ABNORMAL) Comprehensive Metabolic Panel (12/23/2023 8:51 AM CDT) Only the most recent of2 resultswithin the time period is included. Bilirubin Total 0.3 0.0 - 1.2 mg/dL 12/23/2023 9:41 AM CDT [facility] Comment:Indocyanine Green (I CG) may cause falsely elevated bilirubin results. Total and direct bilirubin must not be measured from samples containing indocyanine green. False elevation of total bilirubin can be seen in patients with IgG concentrations above 28 g/L. eGFR 75 >=60 mL/min/1. 73 sq. m 12/23/2023 9:41 AM CDT [facility] Comment: The eGFRcr is calculated with [...] 6.4 - 8.3 gm/dL 12/23/2023 9:41 AM [facility] Calcium Level Total 9.9 8.2 - 10.2 mg/dL 12/23/2023 9:41 AM [facility] Alkaline Phosphatase 80 40 - 129 U/L 12/23/2023 9:41 AM [facility] Albumin Level 4.2 3.5 - 5.2 gm/dL 12/23/2023 9:41 AM [facility] AST 15 <=40 U/L 12/23/2023 9:41 AM [facility] ALT 14 <=41 U/L 12/23/2023 9:41 AM [facility] Sodium Level 138 136 - 145 mmol/L 12/23/2023 9:41 AM [facility] Potassium Level 4.2 3.4 - 4.5 mmol/L 12/23/2023 9:41 AM [facility] Chloride 101 98 - 107 mmol/L 12/23/2023 9:41 AM [facility] CO2 29 22 - 29 mmol/L 12/23/2023 9:41 AM [facility] Anion Gap 8 4 - 14 mmol/L 12/23/2023 9:41 AM [facility] Creatinine 1.13 0.67 - 1.17 mg/dL 12/23/2023 9:41 AM [facility] BUN 14 6 - 23 mg/dL 12/23/2023 9:41 AM CDT [facility] Glucose Level 294(H) 70 - 99 mg/dL 12/23/2023 9:41 AM CDT [facility] Comment: Effective 12/14/15, the glucose reference intervals have been updated based on [place] Diabetes Association guidelines (Standards of Medical Care [...] MD LAB BLOOD ORDERABLES Performing Organization Address City/[facility] de Phone Number [facility] Unless otherwise noted, all lab tests performed by: Division of Pathology and Laboratory Medicine [address] [place] [id number] * (ABNORMAL) Hemoglobin A1c (12/23/2023 8:51 AM CDT) Only the most recent of2 resultswithin the time period is included. Hemoglobin A1c 9.7(H) 4.3 - 5.6 % 12/23/2023 9:34 AM CDT [facility] Blood Peripheral blood specimen / Unknown Venipuncture / Unknown 12/23/2023 8:51 AM CDT 12/23/2023 9:00 AM CDT Narrative [facility] - 12/23/2023 9:34 AM CDT HbA1c values >=6.5% are diagnostic of diabetes mellitus. Diagnosis should be confirmed by repeat testing. Therapeutic Action suggested: >8.0% HbA1c; Goal of therapy: <7.0% HbA1c Margoth Souza MD LAB BLOOD ORDERABLES Performing Organization Address City/[facility]/ZIP Co de Phone Number [facility] Unless otherwise noted, all lab tests performed by: Division of Pathology and Laboratory Medicine [address] [place] [id number] * ACTH (12/09/2023 9:45 AM CDT) Only the most recent of2 resultswithin the time period is included. Pathologist [facility] ACTH 22 7 - 63 pg/mL 12/09/2023 12:19 PM CDT [facility] Blood Peripheral blood specimen / Unknown Venipuncture / Unknown 12/09/2023 9:45 AM CDT 12/09/2023 9:52 AM CDT Narrative [facility] - 12/09/2023 12:19 PM CDT Reference range established based on adult population (7 - 10am draws). No established reference values for p.m. draws. Results greater than 1826 pg/mL may not be reliable due to matrix effect with extended dilution as it exceeds the wash oil cooler operator's recommended limit. ACTH reference intervals are established for the morning hours from 7-10 am. Due to the circadian rhythm of ACTH levels in plasma, the sample collection time must be noted. Caution should be exercised when interpreting such values and done in conjunction with clinical context. Veronica Del Castillo APRN LAB BLOOD ORDERABL ES [facility] Unless otherwise noted, all lab tests performed by: Division of Pathology and Laboratory Medicine [address] [place] [id number] * DHEA Sulfate (12/09/2023 9:45 AM CDT) [facility] DHEAS-Coral 81 20 - 299 mcg/dL 12/10/2023 12:10 PM CDT [facility] Comment: Test Performed by: [facility] [address] [place] [address] Agricultural Equipment Test Engineer: Mary Jane Topete Ph.D.; CLIA# [id number] Blood Peripheral blood specimen / Unknown Venipuncture / Unknown 12/09/2023 9:45 AM CDT 12/09/2023 9:56 AM CDT Leah-Zora You-Evonne [employer] SALESPERSON LAB BLOOD ORDERABL ES Performing Organization Address [facility]/ZIP Co de Phone Number [facility] * Cortisol, Total (12/09/2023 9:45 AM CDT) Only the most recent of4 resultswithin the time period is included. Cortisol 11.39 4.82 - 19.50 mcg/dL 12/09/2023 11:00 AM CDT [facility] Blood Peripheral blood specimen / Unknown Venipuncture / Unknown 12/09/2023 9:45 AM CDT 12/09/2023 9:55 AM CDT Narrative [facility] - 12/09/2023 11:00 AM CDT Cortisol reference [...] (4-8 pm): 2.47 - 11.9 mcg/dL Veronica Del Castillo [employer] SALESPERSON LAB BLOOD ORDERABL ES Performing Organization Address [facility] Co de Phone Number [facility] Unless otherwise noted, all lab tests performed by: Division of Pathology and Laboratory Medicine [address] [place] [address] * IR CT GUIDED BIOPSY RENAL (10/03/2023 10:27 AM CDT) Anatomical Region Laterality Modality Abdomen/Pelvis, Organ (liver/spleen/kidney) Computed Tomography Narrative 10/04/2023 9:03 AM CDT Table formatting from the original result was not included. Date of Procedure: 10/03/23 Attending Physician: Kumar Comer MD Offset Printing Pressmen: None Pre Procedure Diagnosis: Renal mass Post [...] with Interventional Radiology required. Shazia Arriaza MD [facility] IR ORDERABLES * Pathology Biopsy Interpretation (10/03/2023 10:19 AM CDT) Submitted Clinical History Renal mass [N28.89] 10/04/2023 9:52 AM CDT [facility] Diagnosis A: Kidney, left, biopsy: RENAL CELL CARCINOMA, CLEAR CELL TYPE, ISUP/WHO NUCLEAR GRADE 1. CCG/FGT 10/04/2023 9:52 AM CDT [facility] Gross Description A: Kidney, left, left kidney: Multiple soft castillo-brown tissue cores and core fragments, less than 0.1 cm - 0.2 cm in length and up to 0.1 cm in diameter, entirely submitted in A1. ET 10/04/2023 9:52 AM CDT [facility] Biomarker Block(s) Tumor: A1 10/04/2023 9:52 AM CDT [facility] Disclaimer "Some tests reported here may have been developed and performance characteristics determined by [facility] Pathology [facility] Laboratory Medicine. These tests have not been specifically cleared or approved by the U.S. Food and Drug Administration. If applicable, controls were reviewed and showed appropriate reactivity." 10/04/2023 9:52 AM CDT [facility] Tissue (Kidney, Left) 10/03/2023 10:19 AM CDT 10/03/2023 12:29 PM CDT Shazia Arriaza MD LAB PATHOLOGY ORDE ANA [facility] [address] [place] [address], * Prothrombin Time (10/03/2023 9:27 AM CDT) Prothrombin Time 12.6 11.9 - 14.5 second(s) 10/03/2023 9:57 AM CDT [facility] International Normalization Ratio 0.98 0.87 - 1.12 10/03/2023 9:57 AM CDT [facility] Blood Peripheral blood specimen / Unknown Venipuncture / Unknown 10/03/2023 9:27 AM CDT 10/03/2023 9:28 AM CDT Abilio Ng PA-C LAB BLOOD ORDERABL ES [facility] [address] [place] [address] * Type and Screen (10/03/2023 9:27 AM CDT) ABORh O POS 10/03/2023 9:17 AM CDT [facility] ABSC Negative 10/03/2023 9:17 AM CDT [facility] Clot Expiration 10/06/2023 23:59 10/03/2023 9:17 AM CDT [facility] Historical Record Check Complete 10/03/2023 9:17 AM CDT [facility] Blood Peripheral blood specimen / Unknown Venipuncture / Unknown 10/03/2023 9:27 AM CDT 10/03/2023 9:52 AM CDT Conrado-Dannielle D Hernandez [facility] BLOOD BANK TEST OR DERABLES [facility] [address] [place] [address] * X-ray Chest 2 Views (09/19/2023 9:24 [...] (Scheduled) (09/19/2023) Shazia Arriaza MD ECG ORDERABLES STEPH IECG * Metanephrines Fractionated (09/16/2023 4:24 PM CDT) Normetane Free-Maxwell 0.43 <0.90 nmol/L 09/19/2023 2:59 PM CDT [facility] BEANAIS Metanephr Free-Maxwell <0.20 <0.50 nmol/L 09/19/2023 2:59 PM CDT [facility] TIFF Comment: ADDITIONAL INFORMATION This test was developed and its performance characteristics determined by [facility] in a manner consistent with CLIA requirements. This test has not been cleared or approved by the U.S. Food and Drug Administration. Test Performed by: [facility] - [address] [address] Agricultural Equipment Test Engineer: Scot Skelton M.D. Ph.D.; CLIA# [id number] Blood Peripheral blood specimen / Unknown Venipuncture / Unknown 09/16/2023 4:24 PM CDT 09/16/2023 4:41 PM CDT Shazia Arriaza MD LAB BLOOD ORDERABL ES [facility] * Hepatitis C Virus Antibody (09/16/2023 4:24 PM CDT) [facility] HCVAb. Non Reactive Non Reactive 09/17/2023 9:11 AM CDT [facility] Blood Peripheral blood specimen / Unknown Venipuncture / Unknown 09/16/2023 4:24 PM CDT 09/16/2023 4:41 PM CDT Narrative [facility] - 09/17/2023 9:11 AM CDT Antibody detection in the immunocompromised and immunosuppressed population may be delayed or absent entirely. Therefore serial testing, correlation with other clinical findings, and supplemental testing (if available) should be taken into consideration when interpreting the results. Shazia Arriaza MD LAB BLOOD ORDERABL ES Performing Organization Address City/[facility]/ZIP Co de Phone Number [facility] Unless otherwise noted, all lab tests performed by: Division of Pathology and Laboratory Medicine [address] [place] [id number] * Aldosterone Level (09/16/2023 4:24 PM CDT) [facility] Aldosterone-Coral 8.1 <=21 ng/dL 09/20/2023 1:02 AM CDT [facility] Comment: ADDITIONAL INFORMATION Reference range for patients 11 years and older is based on upright A.M. collection from subjects without sodium restrictions. This test was developed and its performance characteristics determined by [facility] in a manner consistent with CLIA requirements. This test has not been cleared or approved by the U.S. Food and Drug Administration. Test Performed by: [facility] - [address] [address] Agricultural Equipment Test Engineer: Scot Skelton M.D. Ph.D.; CLIA# [id number] Blood Peripheral blood specimen / Unknown Venipuncture / Unknown 09/16/2023 4:24 PM CDT 09/16/2023 4:41 PM CDT Shazia Arriaza MD LAB BLOOD ORDERABL ES [facility] TIFF * Renin Activity (09/16/2023 4:24 PM CDT) [facility] Renin Activity-Coral 4.3 ng/mL/h 09/19 3:42 PM CDT [facility]FF Comment: REFERENCE VALUE (Peripheral vein specimen) Na-deplete, upright: Mean: 5.9 Range: 2.9-10.8 Na-replete, upright: Mean: 1.0 Range: < or =0.6-3.0 ADDITIONAL INFORMATION Testing performed by Liquid Chromatography-Tandem Mass Spectrometry (LC-MS/MS). This test was developed and its performance characteristics determined by [facility] in a manner consistent with CLIA requirements. This test has not been cleared or approved by the U.S. Food and Drug Administration. Test Performed by: [facility] [place] [address] Agricultural Equipment Test Engineer: Scot Skelton M.D. Ph.D.; CLIA# [id number] Blood Peripheral blood specimen / Unknown Venipuncture / Unknown 09/16/2023 4:24 PM CDT 09/16/2023 4:41 PM CDT Shazia Arriaza MD LAB BLOOD ORDERABL ES [facility] TIFF * Urine Culture (09/16/2023 4:24 PM CDT) Pathologist [facility] Urine Culture Normal site mirna present. Generally of low significance. Correlate with clinical data and culture history. 09/18/2023 8:31 AM CDT [facility] Urine Voided urine specimen / Unknown Non-blood Collection / Unknown 09/16/2023 4:24 PM CDT 09/16/2023 4:41 PM CDT Shazia Arriaza MD MICROBIOLOGY - GEN ERAL ORDERABLES [facility] Unless otherwise noted, all lab tests performed by: Division of Pathology and Laboratory Medicine [address] [place] [id number] * TSH (09/16/2023 4:24 PM CDT) [facility] Thyroid Stimulating Hormone 1.43 0.27 - 4.20 mcunit/mL 09/16/2023 5:23 PM CDT [facility] Blood Peripheral blood specimen / Unknown Venipuncture / Unknown 09/16/2023 4:24 PM CDT 09/16/2023 4:41 PM CDT Shazia Arriaza MD LAB BLOOD ORDERABL ES Performing Organization Address City/[facility]/ZIP Co de Phone Number [facility] [address] [place] [address] * T4 (09/16/2023 4:24 PM CDT) Pathologist [facility] Thyroxine 7.0 4.5 - 11.7 mcg/dL 09/16/2023 5:55 PM CDT [facility] Blood Peripheral blood specimen / Unknown Venipuncture / Unknown 09/16/2023 4:24 PM CDT 09/16/2023 4:41 PM CDT Shazia Arriaza MD LAB BLOOD ORDERABL ES [facility] Unless otherwise noted, all lab tests performed by: Division of Pathology and Laboratory Medicine [address] [place] [id number] * Confirm ABORh (09/16/2023 4:23 PM CDT) [facility] Confirm O POS 09/16/2023 4:15 PM CDT [facility] Blood Peripheral blood specimen / Unknown Venipuncture / Unknown 09/16/2023 4:23 PM CDT 09/16/2023 4:41 PM CDT Shazia Arriaza MD BLOOD BANK TEST OR DERABLES [facility] [address] [place] [address] * OSI CT Abdomen and Pelvis (07/18/2023 7:40 AM [facility]) Narrative Systemgenerated, Documentation - 08/08/2023 7:40 AM CDT Study acquired at another institution. For comparison only. No [facility] originated interpretation requested or available. Margoth Souza MD IMG OUTSIDE IMAGE OR DERABLES * OSI CT Brain (07/17/2023 7:40 AM [employer]ER) Narrative Systemgenerated, Documentation - 08/08/2023 7:40 AM CDT Study acquired at another institution. For comparison only. No [facility] originated interpretation requested or available. Margoth Souza MD IMG OUTSIDE IMAGE OR DERABLES after 01/09/2023 Advance Directives * Full Code (Latest Code Status on File) Date Activated Date Inactivated Comments 01/02/2024 1:48 PM 01/03/2024 7:17 PM Care Teams Loss Prevention Representative Relationship Specialty Start Date End Date Margoth Souza MD [address] [place] [phone] [email or web address] PCP - General Urology 07/30/23 Mary Jane Cassidy MD [address] [place] [id number] [email or web address] Consulting Physician Endocrinology 12/09/23 Barry He MD [address] [place] [id number] [email or web address] Consulting Physician Internal Medicine 12/23/23 Patience Hunt MD [address] [place] [phone] [email or web address] Consulting Physician Endocrinology 12/31/23
[2024-01-09] MEDS ORDERED: DIPHENHYDRAMINE 50 MG/ML VIAL ONE (10:52)
[2024-01-09] MEDS ORDERED: NA CHLORIDE 0.9% 1,000 ML ONE (10:53)
--- NOTE | 2024-01-09 11:07 | RAD REPORT ---
EXAM DESCRIPTION: Sharon Single View01/09/2024 10:58 am CLINICAL HISTORY: Chest pain COMPARISON: January 06 2024 FINDINGS: The patient has known pneumoperitoneum. Lungs appear clear of acute infiltrate. Heart is normal size
[2024-01-09 12:11] LABS: SARS-CoV-2 Antigen CONTROL BLUE LINE VIS/BG OK; SARS-CoV-2 Antigen Rapid Res Negative (Negative)
[2024-01-09 13:30] LABS: Absolute Basophils 0.1 K/uL (0-0.5); Absolute Eosinophils 0.2 K/uL (0-0.5); Absolute Lymphocytes (CBC) 1.2 K/uL (0.7-4.9); Absolute Monocytes 0.6 K/uL (0.1-1.3); Basophils % 0.6 % (0-1.3); Eosinophils % 2.5 % (0-4.4); Hematocrit 42.1 % (39.6-49.0); Hemoglobin 13.9 g/dL (13.6-17.9); Lymphocytes % 13.4 % (15.3-44.8); MCH 25.9 pg (27.0-35.0); MCV 78.3 fL (80-100); MPV 7.9 fL (7.6-11.3); Monocytes % 6.7 % (3.3-12.3); Neutrophils % 76.8 % (41.7-73.7); Nucleated Red Blood Cells % 0.1 % (0-0); Platelets 443 thou/uL (152-406); RBC Red Blood Cell Count 5.37 M/uL (4.33-5.43); Red Cell Distribution Width 13.8 % (12.1-15.2)
[2024-01-09 14:15] LABS: Anion Gap 13.7 mEq/L (5.0-15.0)
[2024-01-09 14:16] LABS: Potassium 4.7 mEq/L (3.5-5.1); Troponin High Sensitivity 144.6 pg/mL (<58.9)
--- NOTE | 2024-01-09 14:27 | ER ---
Nurse's Notes [facility] Name: Zeke Mackay Sr Age: 58 yrs Sex: Male : 1965 Arrival Date: 01/09/2024 Time: 10:30 Bed 8 Private MD: Diagnosis: NSTEMI Presentation: 01/08 10:36 Chief complaint: EMS states: Pt c/o SOB, N/V, had recent sx to remove renal cell ph carcinoma. Coronavirus screen: Vaccine status: Patient reports receiving the 2nd dose of the covid vaccine. Ebola Screen: No symptoms or risks identified at this time. 10:36 Method Of Arrival: EMS: [facility] 10:39 Initial Sepsis Screen: Does the patient meet any 2 criteria? No. Patient's initial ph sepsis screen is negative. Does the patient have a suspected source of infection? No. Patient's initial sepsis screen is negative. Risk Assessment: Do you want to hurt yourself or someone else? Patient reports no desire to harm self or others. Onset of symptoms was January 09, 2024. 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 - Infectious Disease History:: Denies. - Social history:: Smoking status: unknown. Screenin:[address] [facility] ED Fall Risk Assessment (Adult) History of falling in the last 3 months, ph including since admission No falls in past 3 months (0 pts) Confusion or Disorientation No (0 pts) Intoxicated or Sedated No (0 pts) Impaired Gait No (0 pts) Mobility Assist Device Used No (0 pt) Altered Elimination No (0 pt) Score/Fall Risk Level 0 - 2 = Low Risk Oriented to surroundings, Maintained a safe environment, Hourly rounding (assess needs \T\ fall precautionary measures) done, Used ambulatory aids as needed (educated on \T\ assisted with). Abuse screen: Denies threats or abuse. Denies injuries from another. Nutritional screening: No deficits noted. Tuberculosis screening: No symptoms or risk factors identified. Assessment: 11:00 General: Appears in no apparent distress. uncomfortable, Behavior is calm, cooperative, ph quiet. Pain: Denies pain. Neuro: Level of Consciousness is awake, alert, obeys commands, Oriented to person, place, time, situation. Cardiovascular: Capillary refill < 3 seconds in bilateral fingers Patient's skin is warm and dry. Respiratory: Airway is patent Respiratory effort is even, unlabored. GI: Reports nausea, vomiting. Derm: Skin is clammy, Skin is pale. Vital Signs: 10:36 BP 210 / 102; Pulse 75; Resp 18; Temp 96.9; Pulse Ox 100% on R/A; Weight 85.28 kg; ph Height 6 ft. 2 in. ; 12:30 BP 189 / 92; Pulse 70; Resp 18; Pulse Ox 99% on R/A; ph 14:01 BP 178 / 89; Pulse 18; Resp 16; Pulse Ox 100% on R/A; ph 15:43 BP 161 / 85; Pulse 66; Resp 18; Temp 97.1; Pulse Ox 99% ; ph 10:36 Body Mass Index 24.14 (85.28 kg, 187.96 cm) ph ED Course: 10:33 Patient arrived in ED. ec2 10:33 Pardeep Knox MD is Attending Physician. ec2 10:36 Yohana Holden, ARTURO is Primary Nurse. ph 10:39 Triage completed. ph 10:40 Arm band placed on Patient placed in an exam room. ph 10:41 Patient has correct armband on for positive identification. Placed in gown. Bed in low ph position. Call light in reach. Side rails up X2. Client placed on continuous cardiac and pulse oximetry monitoring. NIBP monitoring applied. window framer on. 10:56 Missed attempt(s): 22 gauge in right wrist. Bleeding controlled, band aid applied, zm catheter tip intact. 10:57 Initial lab(s) drawn, by me, sent to lab. Inserted saline lock: 22 gauge in right zm forearm, using aseptic technique. Blood collected. Flushed with 10 mL NS. 10:57 Basic Metabolic Panel Sent. zm 10:57 CBC with Diff Sent. zm 10:58 Troponin HS Sent. zm 11:00 XRAY Chest (1 view) In Process Unspecified. EDMS 11:05 Head of bed elevated. zm 14:16 Notified ED physician of a critical lab result(s). Troponin 144. cm10 14:26 Daniel Best is Hospitalizing Provider. ec2 15:21 Gillian Hunt MD is Hospitalizing Provider. ec2 15:27 [id number] CM met with patient at the bedside in the ED exam room. Patient identified by name ane and . Demographic sheet confirmed. Patient reports that prior to admission, he performs ADLs independently and without physical limitations. He states he lives with his and daughter in a single story home. No DME, HH, home oxygen or other medical services at this time. No MPOA in place at this time. He states his PCP is in [place], [place].Patient states he wishes to discharge back home and his will transport him upon discharge.CM team will continue to follow and coordinate care. 1540 Dr. Hunt at bedside to discuss plan of care. 16:35 No provider procedures requiring assistance completed. Patient admitted, IV remains in ph place. Administered Medications: 11:00 Drug: NS 0.9% IV 1000 ml IV at 1 bolus Per protocol; 1000 mL bolus Route: IV; Rate: 1 ph bolus; Site: right forearm; 12:15 Follow up: Response: No adverse reaction; IV Status: Completed infusion; IV Intake: ph 1000ml 11:00 Drug: Droperidol IVP 2.5 mg IVP once Route: IVP; Site: right forearm; ph 11:20 Follow up: Response: No adverse reaction; Marked relief of symptoms; Nausea is ph decreased; Vomiting decreased 11:00 Drug: diphenhydrAMINE IVP 50 mg IVP once Route: IVP; Site: right forearm; ph 11:20 Follow up: Response: No adverse reaction; Marked relief of symptoms ph 14:43 Drug: Aspirin PO Chewable Tablet 324 mg PO once; 81 mg tablets x 4 Route: PO; ph 15:00 Follow up: Response: No adverse reaction ph 14:43 Drug: Enoxaparin Sub-Q 1 mg/kg Sub-Q once Route: Sub-Q; Site: right lower abdomen; ph 15:00 Follow up: Response: No adverse reaction ph Medication: 10:41 VIS not applicable for this client. ph Intake: 12:15 IV: 1000ml; Total: 1000ml. ph Outcome: 14:26 Decision to Hospitalize by Provider. ec2 16:36 Patient left the ED. iw 16:36 Admitted to Tele accompanied by tech, via wheelchair, with chart, ph 16:36 Condition: stable 16:36 Instructed on the need for admit, Signatures: Dispatcher [employer] Regina Zambrano RN RN Yohana Holden RN RN Wilber, Carol Dorman RN RN cm10 Pardeep Knox MD MD ec2 Viola Kimble RN RN ane Corrections: (The following items were deleted from the chart) 11:14 11:14 diphenhydrAMINE IVP 50 mg IVP in right forearm ph ph 11:14 11:14 Droperidol IVP 2.5 mg IVP in right forearm ph ph 11:15 11:14 NS 0.9% IV 1000 ml IV at 1 bolus in right forearm ph ph
--- NOTE | 2024-01-09 14:27 | EDPHYS ---
Physician Documentation [facility] Name: Zeke Mackay Sr Age: 58 yrs Sex: Male : 1965 Arrival Date: 01/09/2024 Time: 10:30 Bed 8 Private MD: ED Physician Pardeep Knox HPI: 01/08 10:36 This 58 yrs old Male presents to ER via Unassigned with complaints of ec2 weakness. 10:36 Patient arrives today for feeling unwell. Patient reports has been having some ec2 generalized weakness, states that he is not feeling sweaty. History of diabetes, has not taken his medications for 1 week. No cough and cold symptoms, no fevers, no nausea, no vomiting, no diarrhea. Patient reports no urinary complaints.. 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 - Infectious Disease History:: Denies. - Social history:: Smoking status: unknown. ROS: 10:37 Constitutional: as per hpi ec2 Exam: 10:37 Constitutional: GEN: NAD Head: atraumatic Eyes: EOMI Ears: External ears are ec2 normal. CV: regular rate LUNGS: no respiratory distress ABD: non-distended SKIN: no evidence of rashes MSK: no evidence of trauma Vital Signs: 10:36 BP 210 / 102; Pulse 75; Resp 18; Temp 96.9; Pulse Ox 100% on R/A; Weight 85.28 kg; ph Height 6 ft. 2 in. ; 12:30 BP 189 / 92; Pulse 70; Resp 18; Pulse Ox 99% on R/A; ph 14:01 BP 178 / 89; Pulse 18; Resp 16; Pulse Ox 100% on R/A; ph 15:43 BP 161 / 85; Pulse 66; Resp 18; Temp 97.1; Pulse Ox 99% ; ph 10:36 Body Mass Index 24.14 (85.28 kg, 187.96 cm) ph MDM: 10:33 Patient medically screened. ec2 10:37 Data reviewed: vital signs. ED course: Patient arrives today for feeling unwell. ec2 Examination remarkable for hypertensive individual is otherwise in no acute distress with a reassuring examination. Will obtain lab work, cardiac workup. Differential includes electrolyte disturbances, anemia, renal dysfunction, ACS.. 10:49 ED course: EKG independently reviewed and interpreted by me, shows normal sinus rhythm, ec2 rate of 74, nonspecific T wave abnormality noted in the anterolateral leads, no acute ST segment elevations, nonactionable intervals.. 10:49 ED course: When compared to external records, EKG appears similar.. ec2 14:25 ED course: Metabolic profile reassuring, CBC reassuring, troponin elevated at 145. Will ec2 admit the patient for NSTEMI. Gave the patient aspirin, subcu Lovenox. Discussed case with hospitalist, pending admission.. 01/08 10:34 Order name: Basic Metabolic Panel; Complete Time: 14:24 ec2 01/08 10:34 Order name: CBC with Diff; Complete Time: 14:24 ec2 01/08 10:34 Order name: Troponin HS; Complete Time: 14:24 ec2 01/08 10:37 Order name: SARS RAPID; Complete Time: 12:30 ec2 01/08 10:37 Order name: Influenza Screen (a \T\ B); Complete Time: 12:30 ec2 01/08 10:44 Order name: UAM ec2 01/08 15:23 Order name: CBC with Automated Diff EDMS 01/08 15:23 Order name: CBC with Automated Diff EDMS 01/08 15:23 Order name: Comprehensive Metabolic Panel EDMS 01/08 15:23 Order name: Comprehensive Metabolic Panel EDMS 01/08 15:23 Order name: D-Dimer EDMS 01/08 15:23 Order name: D-Dimer EDMS 01/08 15:23 Order name: Lipid Profile EDMS 01/08 15:23 Order name: Lipid Profile EDMS 01/08 15:23 Order name: Magnesium EDMS 01/08 15:23 Order name: Magnesium EDMS 01/08 15:23 Order name: NT PRO-BNP EDMS 01/08 15:23 Order name: NT PRO-BNP EDMS 01/08 15:23 Order name: Troponin High Sensitivity EDMS 01/08 15:23 Order name: Troponin High Sensitivity EDMS 01/08 15:23 Order name: Troponin High Sensitivity EDMS 01/08 10:34 Order name: XRAY Chest (1 view); Complete Time: 11:44 ec2 01/08 15:23 Order name: Echo with Doppler EDWY 01/08 15:23 Order name: CONS Physician Consult [facility] 01/08 10:34 Order name: Cardiac monitoring; Complete Time: 10:57 ec2 01/08 10:34 Order name: EKG - Nurse/Tech; Complete Time: 10:57 ec2 01/08 10:34 Order name: IV Saline Lock; Complete Time: 10:57 ec2 01/08 10:34 Order name: Labs collected and sent; Complete Time: 10:57 ec2 01/08 10:34 Order name: O2 Per Protocol; Complete Time: 10:44 ec2 01/08 10:34 Order name: O2 Sat Monitoring; Complete Time: 10:44 ec2 01/08 13:22 Order name: Misc. Order: labs?; Complete Time: 13:56 ec2 01/08 13:35 Order name: Labs - recollect needed: green; Complete Time: 13:56 bc6 Administered Medications: 11:00 Drug: NS 0.9% IV 1000 ml IV at 1 bolus Per protocol; 1000 mL bolus Route: IV; Rate: 1 ph bolus; Site: right forearm; 12:15 Follow up: Response: No adverse reaction; IV Status: Completed infusion; IV Intake: ph 1000ml 11:00 Drug: Droperidol IVP 2.5 mg IVP once Route: IVP; Site: right forearm; ph 11:20 Follow up: Response: No adverse reaction; Marked relief of symptoms; Nausea is ph decreased; Vomiting decreased 11:00 Drug: diphenhydrAMINE IVP 50 mg IVP once Route: IVP; Site: right forearm; ph 11:20 Follow up: Response: No adverse reaction; Marked relief of symptoms ph 14:43 Drug: Aspirin PO Chewable Tablet 324 mg PO once; 81 mg tablets x 4 Route: PO; ph 15:00 Follow up: Response: No adverse reaction ph 14:43 Drug: Enoxaparin Sub-Q 1 mg/kg Sub-Q once Route: Sub-Q; Site: right lower abdomen; ph 15:00 Follow up: Response: No adverse reaction ph Disposition Summary: 01/09/24 14:26 Hospitalization Ordered Notes: Hospitalization Status: Inpatient Admission ec2 Location: Telemetry/MedSurg (Inpatient) ec2 Condition: Stable ec2 Problem: new ec2 Symptoms: have improved ec2 Bed/Room Type: Standard ec2 Provider: Gillian Hunt(01/09/24 15:21) ec2 Room Assignment: [facility](01/09/24 15:37) Diagnosis - NSTEMI ec2 Forms: - Medication Reconciliation Form ec2 - SBAR form ec2 - Leadership Thank You Letter ec2 Signatures: Dispatcher [employer] EDRegina Goodrich, RN RN Yohana Holden RN RN Maria Eugenia Giraldo 6 Pardeep Knox MD MD ec2 Corrections: (The following items were deleted from the chart) 10:35 10:35 BASIC METABOLIC PANEL+C.LAB.BRZ ordered. EDMS EDMS 10:35 10:35 CBC+H.LAB.BRZ ordered. EDMS EDMS 10:35 10:35 Troponin High Sensitivity+C.LAB.BRZ ordered. EDMS EDMS 10:35 10:35 Chest Single View+RAD.RAD.BRZ ordered. EDMS EDMS 10:44 10:44 Urinalysis W/Microscopic+U.LAB.BRZ ordered. EDMS EDMS 15:21 14:26 Daniel Best ec2 ec2 15:37 14:26 ec2
[2024-01-09] MEDS ORDERED: ENOXAPARIN 80 MG/0.8 ML SQ ONE (14:32)
[2024-01-09] MEDS ORDERED: ASPIRIN 81 MG CHEWABLE TABLET ONE (14:32)
[2024-01-09] MEDS ORDERED: ACETAMINOPHEN 500 MG TAB PO PRN (15:17)
[2024-01-09] MEDS ORDERED: ONDANSETRON 4 MG/2 ML VIAL IV PRN (15:17)
--- NOTE | 2024-01-09 15:17 | P.HP ---
Certification for Inpatient Patient admitted to: Inpatient With expected LOS: >2 Midnights Patient will require the following post-hospital care: None Practitioner: I am a practitioner with admitting privileges, knowledge of patient current condition, hospital course, and medical plan of care. Services: Services provided to patient in accordance with Admission requirements found in Title 42 Section 412.3 of the Code of Federal Regulations Patient History Date of Service: 01/09/24 Reason for admission: Diaphoresis and confusion; atypical chest pain History of Present Illness: Patient is a 58-year-old gentleman with a past medical history of diabetes, renal cell carcinoma status post partial kidney resection, hypertension, who presents with diaphoresis and confusion along with generalized weakness. Patient also was having intractable nausea and vomiting. Patient has shortness of breath this morning but this has resolved. Patient states his symptoms started just prior to arrival. There was no pain associated with his symptoms. Patient denies any paresthesias. Patient states after arrival to the ER he started feeling better after he was admitted to the hospital. Emergency room, lab workup revealed elevated troponins. Otherwise workup is unremarkable. At this time, patient will be admitted to the hospital for further evaluate pat ient. Allergies No Known Allergies Allergy (Verified 08/17/20 20:54) Home Medications: Metformin HCl 1,000 mg PO DAILY 08/04/18 Dapagliflozin Propanediol [Farxiga] 20 mg PO DAILY 07/24/19 Insulin Glargine/Lixisenatide [Soliqua 100 Unit-33 Mcg/ml Pen] 56 units SQ DAILY 07/24/19 - Past Medical/Surgical History Diabetic: Yes -: Neuropathy -: Diabetes -: Hyperlipidemia -: Osteomyelitis -: AFib on anticoagulation -: lap appy -: L wrist fx repair -: R hand fx repair -: c3-6 fused Psychosocial/ Personal History: Patient is retired, lives with his and children - Family History Father Medical History: Diabetes, Other (see notes) Notes: Stroke - Social History Smoking Status: Never smoker Alcohol use: No CD- Drugs: No Caffeine use: Yes Review of Systems 10-point ROS is otherwise unremarkable Physical Examination - Vital Signs Temperature: 98 F Blood Pressure: 140/80 Pulse: 80 Respirations: 18 Pulse Ox (%): 95 - Physical Exam General: Alert, In no apparent distress, Oriented x3 HEENT: Atraumatic, PERRLA, Mucous membr. moist/pink, EOMI, Sclerae nonicteric Neck: Supple, 2+ carotid pulse no bruit, No LAD, Without JVD or thyroid abnormality Respiratory: Clear to auscultation bilaterally, Normal air movement Cardiovascular: Regular rate/rhythm, Normal S1 S2 Gastrointestinal: Normal bowel sounds, Soft and benign, Non-distended, No tenderness Musculoskeletal: No clubbing, No swelling, No tenderness Integumentary: No rashes Neurological: Normal gait, Normal speech, Normal strength at 5/5 x4 extr, Normal tone, Sensation intact, Cranial nerves 3-12 intact, Normal affect Lymphatics: No axilla or inguinal lymphadenopathy Other Physical/Emotional Findings: Bilateral lower extremity edema - Studies Laboratory Data (last 24 hrs) 01/09/24 01/09/24 13:45 10:54 WBC 9.10 Hgb 13.9 Hct 42.1 Plt Count 443 H Sodium 135 L Potassium 4.7 BUN 16 Creatinine 0.89 Glucose 225 H Microbiology Data (last 24 hrs): 01/09/24 11:00 Nasopharnyx Influenza Type A Antigen Screen - Final 01/09/24 11:00 Nasopharnyx Influenza Type B Antigen Screen - Final Assessment & Plan - Problems (Diagnosis) (1) Non-STEMI (non-ST elevated myocardial infarction) Current Visit: Yes Status: Acute (2) Chronic atrial fibrillation Current Visit: No Status: Acute (3) Diabetes Current Visit: No Status: Acute Qualifiers: (4) Hyperlipidemia Current Visit: No Status: Acute Qualifiers: - Plan -High-sensitivity troponin -Cardiology consultation -Echocardiogram and further intervention per cardiology -Repeat EKG -Lipid profile -Strategy Consultant regarding modifying risk for cardiac disease - Advance Directives Does patient have a Living Will: No Does patient have a Durable POA for Healthcare: No
[2024-01-09] MEDS ORDERED: MORPHINE 2 MG/ML SYR IV PRN (15:45)
[2024-01-09 16:42] VITALS: BMI 23.0
--- NOTE | 2024-01-09 17:29 | P.CNS ---
Date of Consult: 01/09/24 Chief Complaint: Diaphoresis and confusion; atypical chest pain History of Present Illness: Patient with PMH of DM, questionable AF presented with waking up with SOB, sweaty, diapharesis and N&V, that got better, report same symptoms one week ago, denies chest pain, no syncope. Allergies No Known Allergies Allergy (Verified 08/17/20 20:54) Home medications list reviewed: Yes Home Medications: Metformin HCl 1,000 mg PO DAILY 08/04/18 Dapagliflozin Propanediol [Farxiga] 20 mg PO DAILY 07/24/19 Insulin Glargine/Lixisenatide [Soliqua 100 Unit-33 Mcg/ml Pen] 56 units SQ DAILY 07/24/19 - Past Medical/Surgical History Diabetic: Yes -: Neuropathy -: Diabetes -: Hyperlipidemia -: Osteomyelitis -: AFib on anticoagulation -: RENAL CELL CARCINOMA -: lap appy -: L wrist fx repair -: R hand fx repair -: c3-6 fused -: partial kidney resection Psychosocial/ Personal History: Patient is retired, lives with his and children - Family History Father Medical History: Diabetes, Other (see notes) Notes: Stroke - Social History Smoking Status: Unknown if ever smoked Alcohol use: No CD- Drugs: Yes Caffeine use: Yes Place of Residence: Home Review of Systems 10-point ROS is otherwise unremarkable Physical Examination Temp Pulse Resp BP Pulse Ox 97.1 F 66 18 161/85 H 95 01/09/24 15:43 01/09/24 15:43 01/09/24 15:43 01/09/24 15:43 01/09/24 15:17 General: Alert, In no apparent distress HEENT: Atraumatic, PERRLA, Mucous membr. moist/pink, EOMI, Sclerae nonicteric Neck: Supple, 2+ carotid pulse no bruit, No LAD, Without JVD or thyroid abnormality Respiratory: Clear to auscultation bilaterally, Normal air movement Cardiovascular: Regular rate/rhythm, Normal S1 S2 Gastrointestinal: Normal bowel sounds, No tenderness Musculoskeletal: No tenderness Integumentary: No rashes Neurological: Normal gait, Normal speech, Normal tone, Normal affect Lymphatics: No axilla or inguinal lymphadenopathy Laboratory Data (last 24 hrs) 01/09/24 01/09/24 13:45 10:54 WBC 9.10 Hgb 13.9 Hct 42.1 Plt Count 443 H Sodium 135 L Potassium 4.7 BUN 16 Creatinine 0.89 Glucose 225 H - Problems (1) Non-STEMI (non-ST elevated myocardial infarction) Current Visit: Yes Status: Acute Plan: patient troponin mild elevated with multiple risk factors for CAD. NPO after midnight for coronary angiogram in am get Echo ASA 81 mg daily Lipitor 80 mg daily Metoprolol 25 mg po BID (2) Chronic atrial fibrillation Current Visit: No Status: Acute Plan: Questionable as patient says it is not a confirmed diagnosis monitor on tele overnight get echo metoprolol patient will benefit from outpatient event monitor (3) Hyperlipidemia Current Visit: No Status: Acute Plan: Lipitor 80 mg daily Qualifiers:
[2024-01-09] MEDS: METOPROLOL TAR 25 MG TAB PO SCH (20:14)
[2024-01-09] MEDS: ATORVASTATIN 80 MG TAB PO SCH (20:15)
[2024-01-10 04:10] LABS: Absolute Basophils 0.1 K/uL (0-0.5); Absolute Eosinophils 0.3 K/uL (0-0.5); Absolute Lymphocytes (CBC) 1.4 K/uL (0.7-4.9); Absolute Monocytes 0.7 K/uL (0.1-1.3); Absolute Neutrophil 5.3 K/uL (1.8-8.0); D-Dimer 1.977 FEUug/mL (0-0.500); Eosinophils % 3.7 % (0-4.4); Hematocrit 35.9 % (39.6-49.0); Hemoglobin 11.6 g/dL (13.6-17.9); Lymphocytes % 18.3 % (15.3-44.8); MCH 25.4 pg (27.0-35.0); MCHC 32.4 g/dL (32.0-36.0); MCV 78.5 fL (80-100); MPV 7.6 fL (7.6-11.3); Monocytes % 8.6 % (3.3-12.3); Neutrophils % 68.4 % (41.7-73.7); PTT, Activated Partial Thromb 32.3 SECONDS (24.3-36.9); Platelets 363 thou/uL (152-406); RBC Red Blood Cell Count 4.57 M/uL (4.33-5.43); Red Cell Distribution Width 13.9 % (12.1-15.2)
[2024-01-10] MEDS: HEPARIN/D5W 25,000 UNIT/500 ML BAG IV SCH (04:17)
[2024-01-10 04:47] LABS: Albumin 2.6 g/dL (3.4-5.0); Albumin/Globulin Ratio 0.7 (1.1-1.8); Anion Gap 8.1 mEq/L (5.0-15.0); Bilirubin Total 0.3 mg/dL (0.2-1.0); Magnesium 1.9 mg/dL (1.6-2.4); Potassium 4.1 mEq/L (3.5-5.1); Protein, Total 6.6 g/dL (6.4-8.2)
--- NOTE | 2024-01-10 06:39 | P.PN ---
Date of Service: 01/10/24 Subjective N.p.o., scheduled for heart cath today Review of Systems 10-point ROS is otherwise unremarkable Physical Examination - Vital Signs Reviewed - Physical Exam General: Alert, In no apparent distress, Oriented x3 HEENT: Atraumatic, PERRLA, Mucous membr. moist/pink, EOMI, Sclerae nonicteric Neck: Supple, 2+ carotid pulse no bruit, No LAD, Without JVD or thyroid abnormality Respiratory: Clear to auscultation bilaterally, Normal air movement Cardiovascular: Regular rate/rhythm, Normal S1 S2 Gastrointestinal: Normal bowel sounds, Soft and benign, Non-distended, No tenderness Musculoskeletal: No clubbing, No swelling, No tenderness Integumentary: No rashes Neurological: Normal gait, Normal speech, Normal strength at 5/5 x4 extr, Normal tone, Sensation intact, Cranial nerves 3-12 intact, Normal affect Lymphatics: No axilla or inguinal lymphadenopathy Other Physical/Emotional Findings: Bilateral lower extremity edema Assessment & Plan - Problems (Diagnosis) Non-STEMI (non-ST elevated myocardial infarction) Status: Acute Chronic atrial fibrillation Status: Acute Hypertensive urgency Elevated troponin Hyperlipidemia -High-sensitivity troponin -Heparin drip -Cardiology consultation -Echocardiogram and further intervention per cardiology -Repeat EKG -Lipid profile -Flight Test Engineer regarding modifying risk for cardiac disease -01/09 heart cath Diabetes Accu-Chek, sliding scale insulin Resume home meds Full code DVT Cardiac diet - Advance Directives Does patient have a Living Will: No Does patient have a Durable POA for Healthcare: No Time spent with patient 30-minute
[2024-01-10] MEDS ORDERED: LIDOCAINE 1% 20 ML MDV ONE (06:49)
[2024-01-10] MEDS ORDERED: HEPA 1000U/500MLS 2,000 UNIT/1,000 ML BAG IV ONE (06:49)
[2024-01-10] MEDS ORDERED: ATROPINE SULF 1 MG/10 ML SYR IV ONE (06:50)
[2024-01-10] MEDS ORDERED: FENTANYL CITR 100 MCG/2 ML ONE (06:50)
[2024-01-10] MEDS ORDERED: MIDAZOLAM HCL 2 MG/2 ML INJ ONE (06:50)
[2024-01-10] MEDS ORDERED: TICAGRELOR 90 MG TABLET PO ONE (06:51)
[2024-01-10] MEDS ORDERED: CLOPIDOGREL 75 MG TABLET ONE (06:51)
[2024-01-10] MEDS ORDERED: HEPARIN 10,000 UNIT/10 ML VIAL IV ONE (06:51)
[2024-01-10] MEDS ORDERED: HEPARIN 5000 UNIT/ML 1 ML VIAL ONE (06:51)
[2024-01-10] MEDS ORDERED: ASPIRIN 325 MG TAB ONE (06:52)
[2024-01-10] MEDS ORDERED: NA CHLORIDE 0.9% 500 ML ONE (06:52)
[2024-01-10] MEDS: INSULIN REGULAR (HUMAN) 100 UNIT/ML SQ SCH (07:30)
--- NOTE | 2024-01-10 08:11 | P.PN ---
Subjective Date of Service: 01/10/24 Chief Complaint: Diaphoresis and confusion; atypical chest pain Subjective: No new changes, No C/O voiced, Tolerating diet, Ambulating, Improving Review of Systems 10-point ROS is otherwise unremarkable Physical Examination - Vital Signs Temperature: 97.7 F Blood Pressure: 168/78 Pulse: 67 Respirations: 18 Pulse Ox (%): 97 - Physical Exam General: Alert, In no apparent distress HEENT: Atraumatic, PERRLA, EOMI Neck: Supple, JVD not distended Respiratory: Clear to auscultation bilaterally, Normal air movement Cardiovascular: Regular rate/rhythm, Normal S1 S2 Gastrointestinal: Normal bowel sounds, No tenderness Musculoskeletal: No tenderness Integumentary: No rashes Neurological: Normal speech, Normal tone, Normal affect Lymphatics: No axilla or inguinal lymphadenopathy Other Physical/Emotional Findings: Bilateral lower extremity edema - Studies Laboratory Data (last 24 hrs) 01/09/24 01/09/24 13:45 10:54 WBC 9.10 Hgb 13.9 Hct 42.1 Plt Count 443 H Sodium 135 L Potassium 4.7 BUN 16 Creatinine 0.89 Glucose 225 H Microbiology Data (last 24 hrs): 01/09/24 11:00 Nasopharnyx Influenza Type A Antigen Screen - Final 01/09/24 11:00 Nasopharnyx Influenza Type B Antigen Screen - Final Medications List Reviewed: Yes Assessment And Plan - Current Problems (Diagnosis) (1) Non-STEMI (non-ST elevated myocardial infarction) Current Visit: Yes Status: Acute Plan: Coronary angiogram shows multivessel CAD, plan is to transfer for inpatient CABG evaluation get Echo ASA 81 mg daily Lipitor 80 mg daily Metoprolol 25 mg po BID (2) Chronic atrial fibrillation Current Visit: No Status: Acute Plan: Questionable as patient says it is not a confirmed diagnosis monitor on tele overnight get echo metoprolol patient will benefit from outpatient event monitor (3) Hyperlipidemia Current Visit: No Status: Acute Plan: Lipitor 80 mg daily Qualifiers:
[2024-01-10] MEDS: ASPIRIN EC 81 MG TAB PO SCH (09:00)
--- NOTE | 2024-01-10 09:00 | OP ---
Date of Procedure: 01/10/2024 Surgeon: Lucas Huang Procedures Performed: 1.Selective coronary angiogram. 2.Left heart catheterization. Indication For Procedure: Non-ST elevation RI. Complications: None. Estimated Blood Loss: Less than 50 cc. Access: Right radial, closed by TR band. Sedation Time: 20 minutes with 2 of Versed and 50 of fentanyl. Description Of Procedure: After risks, benefits, and alternatives were explained to the patient, the patient agreed to proceed with the procedure and signed informed consent. The patient was brought b k to the medical lab tech instructor, prepped and draped in sterile fashion. Time-out was performed. Sedation was ad ministered. Next, an ultrasound-guided right radial access was obtained. Campus 4 catheter was advan nadir over the J-wire to the LV cavity. LVEDP was obtained. Pullback did not show any gradient. Flower ctive angiogram was done with the same catheter. The catheter was pulled back to the left subclavian and ARREOLA angiogram. At the end of the procedure, catheter was removed over the J-wire. Sheath was removed. TR band was applied. The patient was moved back to recovery in stable condition. Findings: 1.Left main, normal. 2.LAD, large, originates at 90-degree angle from the left main with ostial to proximal 60% disease, then mild LI, then mid 80% to 90% disease, followed by long mid to distal mild luminal irregularities , gives diagonal 1 that is 100% occluded, small. 3.Left circ, mild LI, gives large OM that got ostial to proximal 50% disease and then it bifurcates into 2 branches. One of them is large and have 80% proximal disease and mild LI and then gives OM2 w ith a 2.25 mm vessel with mid 80% disease and then continues as small OM3 and [place] circ. 4.RCA, large anterior takeoff from the right coronary cusp with mid 70% to 80% disease, followed by another mid 60% disease, then distal mild LI, RPDA/RPLV mild LI. 5.LVEDP is 6 mmHg. Assessment And Plan: Significant LAD, large OM1 and OM2 disease and mid RCA disease. The plan will be to transfer for CABG evaluation. SATISH/LARISSA Voice ID: [id number] Report ID: [id number]
[2024-01-10 09:50] VITALS: O2SAT 98
--- NOTE | 2024-01-10 09:52 | P.DS ---
Admission Date: 01/09/24 Discharge Date: 01/10/24 Reason for Admission: Diaphoresis and confusion; atypical chest pain Brief History of Present Illness: Patient is a 58-year-old gentleman with a past medical history of diabetes, renal cell carcinoma status post partial kidney resection, hypertension, who presents with diaphoresis and confusion along with generalized weakness. Patient also was having intractable nausea and vomiting. Patient has shortness of breath this morning but this has resolved. Patient states his symptoms started just prior to arrival. There was no pain associated with his symptoms. Patient denies any paresthesias. Patient states after arrival to the ER he started feeling better after he was admitted to the hospital. Emergency room, lab workup revealed elevated troponins. Otherwise workup is unremarkable. At this time, patient will be admitted to the hospital for further evaluate patient. - Physical Exam General: Alert, In no apparent distress, Oriented x3 HEENT: Atraumatic, PERRLA, Mucous membr. moist/pink, EOMI, Sclerae nonicteric Neck: Supple, 2+ carotid pulse no bruit, No LAD, Without JVD or thyroid abnormality Respiratory: Clear to auscultation bilaterally, Normal air movement Cardiovascular: Regular rate/rhythm, Normal S1 S2 Gastrointestinal: Normal bowel sounds, Soft and benign, Non-distended, No tenderness Musculoskeletal: No clubbing, No swelling, No tenderness Integumentary: No rashes Neurological: Normal gait, Normal speech, Normal strength at 5/5 x4 extr, Normal tone, Sensation intact, Cranial nerves 3-12 intact, Normal affect Lymphatics: No axilla or inguinal lymphadenopathy Other Physical/Emotional Findings: Bilateral lower extremity edema Hospital Course: 58-year-old gentleman with a past medical history of diabetes, renal cell carcinoma status post partial kidney resection, hypertension, who presents with diaphoresis and confusion along with generalized weakness. Patient also was having intractable nausea and vomiting. Patient has shortness of breath. He wasnoted to have NSTEMI, evaluated by cardilogy, had heart01/10/24 cath this morning, abnomormal heart cath. plan to transfer to [place] for higher level of care. for CABG evaluation. Findings: 1. Left main, normal. 2. LAD, large, originates at 90-degree angle from the left main with ostial to proximal 60% disease, then mild LI, then mid 80% to 90% disease, followed by long mid to distal mild luminal irregularities, gives diagonal 1 that is 100% occluded, small. 3. Left circ, mild LI, gives large OM that got ostial to proximal 50% disease and then it bifurcates into 2 branches. One of them is large and have 80% proximal disease and mild LI and then gives OM2 with a 2.25 mm vessel with mid 80% disease and then continues as small OM3 and [place] circ. 4. RCA, large anterior takeoff from the right coronary cusp with mid 70% to 80% disease, followed by another mid 60% disease, then distal mild LI, RPDA/RPLV mild LI. OPERATIVE REPORT 5. LVEDP is 6 mmHg. Assessment And Plan: Significant LAD, large OM1 and OM2 disease and mid RCA disease. The plan will be to transfer for CABG evaluation. Continue home medicines as previously prescribed GOAL: Clear understanding of disease process INSTRUCTIONS: Physician Discharge Instructions: -Trasnfer to [place] for higher level of care for cardiovascular services -Please call Dr. Hunt at [phone] if any questions regarding hospital stay -Please call nursing station at [phone] if any nursing or medication questions Diet: ADA, low sodium Activity: Fall precautions <Ivy Mejía - Last Filed: 01/10/24 15:49> Admission Date: 01/09/24 Discharge Date: 01/10/24 - Problems (1) Non-STEMI (non-ST elevated myocardial infarction) Status: Acute (2) Chronic atrial fibrillation Status: Acute (3) Diabetes Status: Acute Qualifiers: (4) Hyperlipidemia Status: Acute Qualifiers: Hospital Course: Chart has been reviewed. Events of the last 24 hours have been noted. Case discussed with KEEGAN. I performed a substantial part of the MDM during this patient's care today. I personally made or approved the documented management plan and acknowledge its risk of complications. I agree with the findings and documentation provided in the KEEGAN's notes Patient was evaluated and decision was made to transfer for coronary artery bypass grafting. Patient was transferred to [facility] for further intervention. <Gillian Hunt - Last Filed: 01/30/24 02:11> Disposition: [facility] TO [facility] Discharge Condition: FAIR Vital Signs/Physical Exam: Temp Pulse Resp BP Pulse Ox 97.7 F 58 15 137/55 L 97 01/10/24 08:11 01/10/24 09:45 01/10/24 09:45 01/10/24 09:45 01/10/24 08:11 Other Physical/Emotional Findings: Bilateral lower extremity edema Laboratory Data at Discharge: WBC 7.80 thou/uL (4.3-10.9) 01/10/24 03:45 Hgb 11.6 g/dL (13.6-17.9) L D 01/10/24 03:45 Hct 35.9 % (39.6-49.0) L 01/10/24 03:45 Plt Count 363 thou/uL (152-406) 01/10/24 03:45 APTT 32.3 SECONDS (24.3-36.9) 01/10/24 03:45 Sodium 136 mEq/L (136-145) 01/10/24 03:45 Potassium 4.1 mEq/L (3.5-5.1) 01/10/24 03:45 BUN 16 mg/dL (7-18) 01/10/24 03:45 Creatinine 0.98 mg/dL (0.70-1.30) 01/10/24 03:45 Glucose 200 mg/dL (74-106) H 01/10/24 03:45 Magnesium 1.9 mg/dL (1.6-2.4) 01/10/24 03:45 Total Bilirubin 0.3 mg/dL (0.2-1.0) 01/10/24 03:45 AST 11 U/L (15-37) L 01/10/24 03:45 ALT 15 U/L (16-61) L 01/10/24 03:45 Alkaline Phosphatase 68 U/L (45-117) 01/10/24 03:45 Triglycerides 168 mg/dL (<150) H 01/10/24 03:45 Cholesterol 188 mg/dL (<200) 01/10/24 03:45 HDL Cholesterol 29 mg/dL (40-60) L 01/10/24 03:45 Cholesterol/HDL Ratio 6.48 01/10/24 03:45 <Ivy Mejía - Last Filed: 01/10/24 15:49> Vital Signs/Physical Exam: Temp Pulse Resp BP Pulse Ox 98 F 80 18 140/80 95 01/30/24 02:10 01/30/24 02:10 01/30/24 02:10 01/30/24 02:10 01/30/24 02:10 Laboratory Data at Discharge: WBC 7.80 thou/uL (4.3-10.9) 01/10/24 03:45 Hgb 11.6 g/dL (13.6-17.9) L D 01/10/24 03:45 Hct 35.9 % (39.6-49.0) L 01/10/24 03:45 Plt Count 363 thou/uL (152-406) 01/10/24 03:45 APTT 32.7 SECONDS (24.3-36.9) 01/10/24 10:22 Sodium 136 mEq/L (136-145) 01/10/24 03:45 Potassium 4.1 mEq/L (3.5-5.1) 01/10/24 03:45 BUN 16 mg/dL (7-18) 01/10/24 03:45 Creatinine 0.98 mg/dL (0.70-1.30) 01/10/24 03:45 Glucose 200 mg/dL (74-106) H 01/10/24 03:45 Magnesium 1.9 mg/dL (1.6-2.4) 01/10/24 03:45 Total Bilirubin 0.3 mg/dL (0.2-1.0) 01/10/24 03:45 AST 11 U/L (15-37) L 01/10/24 03:45 ALT 15 U/L (16-61) L 01/10/24 03:45 Alkaline Phosphatase 68 U/L (45-117) 01/10/24 03:45 Triglycerides 168 mg/dL (<150) H 01/10/24 03:45 Cholesterol 188 mg/dL (<200) 01/10/24 03:45 HDL Cholesterol 29 mg/dL (40-60) L 01/10/24 03:45 Cholesterol/HDL Ratio 6.48 01/10/24 03:45 <Gillian Hunt - Last Filed: 01/30/24 02:11> Time spent managing pt's care (in minutes): 55 <Ivy Mejía - Last Filed: 01/10/24 15:49> <Gillian Hunt - Last Filed: 01/30/24 02:11> Home Medications: Metformin HCl 1,000 mg PO DAILY 08/04/18 Dapagliflozin Propanediol [Farxiga] 10 mg PO DAILY 07/24/19 Insulin Glargine/Lixisenatide [Soliqua 100 Unit-33 Mcg/ml Pen] 60 units SQ DAILY 07/24/19 Tramadol HCl [Ultram] 50 mg PO Q4HR PRN 01/09/24 methocarbamoL [Methocarbamol] 500 mg PO Q8H PRN 01/09/24 Physician Discharge Instructions: 58-year-old gentleman with a past medical history of diabetes, renal cell carcinoma status post partial kidney resection, hypertension, who presents with diaphoresis and confusion along with generalized weakness. Patient also was having intractable nausea and vomiting. Patient has shortness of breath. He wasnoted to have NSTEMI, evaluated by cardilogy, had heart01/10/24 cath this morning, abnomormal heart cath. plan to transfer to [place] for higher level of care for CABG evaluation. Transfer/Discharge meds per cardiology, Findings: 1. Left main, normal. 2. LAD, large, originates at 90-degree angle from the left main with ostial to proximal 60% disease, then mild LI, then mid 80% to 90% disease, followed by long mid to distal mild luminal irregularities, gives diagonal 1 that is 100% occluded, small. 3. Left circ, mild LI, gives large OM that got ostial to proximal 50% disease and then it bifurcates into 2 branches. One of them is large and have 80% proximal disease and mild LI and then gives OM2 with a 2.25 mm vessel with mid 80% disease and then continues as small OM3 and [place] circ. 4. RCA, large anterior takeoff from the right coronary cusp with mid 70% to 80% disease, followed by another mid 60% disease, then distal mild LI, RPDA/RPLV mild LI. OPERATIVE REPORT 5. LVEDP is 6 mmHg. Assessment And Plan: Significant LAD, large OM1 and OM2 disease and mid RCA disease. The plan will be to transfer for CABG evaluation. GOAL: Clear understanding of disease process INSTRUCTIONS: Physician Discharge Instructions: -Trasnfer to [place] for higher level of care for cardiovascular services -Please call Dr. Hunt at [phone] if any questions regarding hospital stay -Please call nursing station at [phone] if any nursing or medication questions Diet: ADA, low sodium Activity: Fall precautions Followup: Lcuas Huang MD [ACTIVE - CAN ADMIT] - 1-2 Weeks
--- NOTE | 2024-01-10 13:30 | EKG ---
Test Date: 2024-01-09 Test Time: 10:44:25 Grave Digger: CHANDRAKANT MEASUREMENT RESULTS: Intervals: Rate: 74 IA: 156 QRSD: 78 QT: 432 QTc: 479 [place]: P: 30 IA: 156 QRS: 56 T: 122 INTERPRETIVE STATEMENTS: Normal sinus rhythm with sinus arrhythmia Minimal voltage criteria for LVH, may be normal variant T wave abnormality, consider anterolateral ischemia Prolonged QT Abnormal ECG Compared to ECG 01/06/2024 07:55:24 Left ventricular hypertrophy now present T-wave abnormality now present Prolonged QT interval now present Atrial premature complex(es) no longer present Myocardial infarct finding no longer present ST (T wave) deviation no longer present Possible ischemia still present Electronically Signed On 01-10-24 13:28:01 CDT by Lucas Huang
--- NOTE | 2024-01-10 13:37 | EKG ---
Test Date: 2024-01-06 Test Time: 07:55:24 Soloist Dancer: CHRISTINE MEASUREMENT RESULTS: Intervals: Rate: 73 HI: 166 QRSD: 86 QT: 446 QTc: 491 [place]: P: 34 HI: 166 QRS: 80 T: 160 INTERPRETIVE STATEMENTS: Sinus rhythm with premature atrial complexes Septal infarct, age undetermined ST & T wave abnormality, consider inferolateral ischemia Abnormal ECG Compared to ECG 10/12/2020 00:03:32 Myocardial infarct finding now present ST (T wave) deviation now present Possible ischemia now present Electronically Signed On 01-10-24 13:30:35 CDT by Lucas Huang
--- NOTE | 2024-01-13 07:19 | ECHO ---
HEIGHT: 6 ft 2 in WEIGHT: 188 lb 0 oz DATE OF STUDY: 01/10/[address]: Gillian Hunt MD 2-DIMENSIONAL: YES M.MODE: YES DOPPLER: YES COLOR FLOW: YES TDS: PORTABLE: YES DEFINITY: BUBBLE STUDY: DIAGNOSIS: NON ST ELEVATION MUYOCARDIAL INFARCTION CARDIAC HISTORY: CATHERIZATION: NO SURGERY: NO PROSTHETIC VALVE: NO PACEMAKER: NO MEASUREMENTS (cm) DIASTOLIC (NORMALS) SYSTOLIC (NORMALS) IVSd 1.1 (0.6-1.2) LA Diam 3.3 (1.9-4.0) LVEF 40-45% LVIDd 4.8 (3.5-5.7) LVIDs 3.1 (2.0-3.5) %FS LVPWd 1.2 (0.6-1.2) Ao Diam 3.0 (2.0-3.7) 2 DIMENSIONAL ASSESSMENT: RIGHT ATRIUM: NORMAL LEFT ATRIUM: NORMAL RIGHT VENTRICLE: NORMAL LEFT VENTRICLE: NORMAL TRICUSPID VALVE: TRACE TRICUSPID REGURGITATION MITRAL VALVE: NORMAL PULMONIC VALVE: NORMAL AORTIC VALVE: NORMAL PERICARDIAL EFFUSION: NONE AORTIC ROOT: NORMAL LEFT VENTRICULAR WALL MOTION: MILD GLOBAL HYPOKINESIS DOPPLER/COLOR FLOW: GRADE I DIASTOLIC DYSFUNCTION COMMENTS: 1. MILD REDUCED LEFT VENTRICULAR SYSTOLIC FUNCTION, EJECTION FRACTION 40-45%, MILD GLOBAL HYPOKINESIS. 2. GRADE I DIASTOLIC DYSFUCNTION TECHNOLOGIST: ALEXI BARNETT
[2024-01-30 02:10] VITALS: BP 140/80; TEMP 98
== END 2024-01-10 15:29 | disposition short-term general hospital (02) | DRG 281 ==
LOC: ER 10:30 → ERHOLD 15:17 → 2ND 16:00
PROVIDERS: ADMIT Hospitalist; ATTEND Hospitalist
PROC: 4A023N7 Measurement of Cardiac Sampling and Pressure, Left Heart, Percutaneous Approach (ICD-10-PCS; principal; 2024-01-10)
PROC: B2111ZZ Fluoroscopy of Multiple Coronary Arteries using Low Osmolar Contrast (ICD-10-PCS; 2024-01-10)
PROC: B2151ZZ Fluoroscopy of Left Heart using Low Osmolar Contrast (ICD-10-PCS; 2024-01-10)
DX: I21.4 Non-ST elevation (NSTEMI) myocardial infarction (principal); I48.20 Chronic atrial fibrillation, unspecified; I25.10 Atherosclerotic heart disease of native coronary artery without angina pectoris; I25.82 Chronic total occlusion of coronary artery; E78.5 Hyperlipidemia, unspecified; E11.40 Type 2 diabetes mellitus with diabetic neuropathy, unspecified; E03.9 Hypothyroidism, unspecified; Z79.01 Long term (current) use of anticoagulants; Z79.84 Long term (current) use of oral hypoglycemic drugs; Z79.4 Long term (current) use of insulin; Z79.899 Other long term (current) drug therapy; Z85.528 Personal history of other malignant neoplasm of kidney; Z90.5 Acquired absence of kidney; Z11.52 Encounter for screening for COVID-19; Z83.3 Family history of diabetes mellitus; Z82.3 Family history of stroke
CPT/HCPCS: 36415; 71045; 76937; 80048; 80053; 80061; 82947; 83735; 83880; 84484; 85025; 85379; 85730; 87804; 87811; 93005; 93306; 93458; 96361; 96372; 96374; 96375; 99152; 99285; C1893; J0461; J1200; J1644; J2001; J2250; J3010; J7030; J7040; Q9966

== ENCOUNTER 2024-01-20 21:15 | Emergency (ER) | payer OTHER ==
--- OUTSIDE RECORDS SUMMARY | 2024-01-20 21:18 | XMS REPORT | Clinical Summary ---
Author Name Unknown Organization [facility] [place] Address [address] [place] [address] Care Team Providers Care Master Ship Name Role Phone Margoth Souza MD Primary Care Provider [phone] Mary Jane Cassidy MD Unavailable [phone] Barry He MD Unavailable Patience Hunt MD [...] than 9% indicating poor diabetic control 01/02/2024 senior care current use of systemic steroid 2023 Adverse [...] AM CDT Ancillary Procedure MAIN OR [address] [id number] Margoth Souza MD 01/02/2024 7:00 AM CDT - 01/02/2024 11:40 AM CDT Surgery MAIN OR [address] [place] [address] Margoth Souza MD ROBOTIC ASSISTED PARTIAL NEPHRECTOMY 01/02/2024 6:58 AM CDT Anesthesia Event MAIN OR [address] [place] [address] Alonzo Liu MD Majekodumi, Jessy, CRNA 01/02/2024 5:04 AM CDT - 01/03/2024 5:05 PM CDT Hospital Encounter MAIN P09B [address] [place] [address] Margoth Souza MD Renal mass (Primary Dx) Discharge Disposition: Home 01/02/2024 Travel 12/31/2023 1:04 PM CDT - 12/31/2023 11:59 PM CDT Hospital Encounter Main CT IMAGING [address] [place] [address], 3rd Floor Elevator [place] [phone] Margoth Souza MD Renal mass Discharge Disposition: Home 12/31/2023 8:00 AM CDT Consult [facility] [address] [place] [address], [address] [place], [place] [address]ator [place] [phone] Nakia Kirby APRN Khan, Sonya, MD Type 2 diabetes mellitus with hyperglycemia [E11.65] (Primary Dx); Pre-surgery evaluation 12/30/2023 9:30 AM CDT Office Visit [facility] [address] [place] [address], 7th [place] [address] Margoth Souza MD Renal mass 12/30/2023 Travel 12/30/2023 Telephone Endocrine Center [address] [place] [address], [address] [place], [place] [phone] Winnie Archibald, RN Appointment (Cannot get internet-phone broke) 12/30/2023 Orders Only [facility] [address] [place] [address], 7th [place] [address] Roberto Poole PA Renal mass (Primary Dx) 12/29/2023 Orders Only Endocrine Center [address] [place] [address], [address] [place], [place] [address]ator [place] [address] Veronica Del Castillo APRN 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); Endocrine/metabolic screening; Renal cell carcinoma <Left side> 12/25/2023 8:36 AM CDT Anesthesia Event [facility] [address] [place] [address], [address] [place] [address] [place] [address] Lien Antoino, RN 12/23/2023 10:30 AM CDT Consult Perioperative Evaluation and Management [address] [place] [address], [address] [place], [place] [address]ator [place] [address] Margoth Souza MD Oh, Jeong, MD Encounter for other preprocedural examination (Primary Dx); Renal mass; Hyperlipidemia, not otherwise specified 12/23/2023 9:00 AM CDT POEM Appointments [facility] [address] [place] [address] Margoth Souza MD Pre-surgery evaluation (Primary Dx) 12/23/2023 8:45 AM CDT - 12/23/2023 11:59 PM CDT Hospital Encounter [facility] [address] [place] [address] Margoth Souza MD Renal mass Discharge Disposition: Home 12/23/2023 Travel 12/09/2023 9:33 AM CDT - 12/09/2023 11:59 PM CDT Hospital Encounter [facility] [address] [place] [phone] Veronica Del Castillo APRN 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; Endocrine/metabolic screening Discharge Disposition: Home 12/09/2023 8:30 AM CDT Consult Endocrine Center [address] [place], [place] [phone] Mary Jane Cassidy MD 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); Endocrine/metabolic screening; Renal cell carcinoma <Left side> 12/09/2023 Travel 10/23/2023 Orders Only [facility] [address] [facility], 7th [place] [address] Roberto Poole PA Renal mass (Primary Dx); Adrenal mass 10/03/2023 9:30 AM CDT - 10/03/2023 11:59 PM CDT Hospital Encounter Interventional Radiology [address] [place] [address], 4th [place] [address] Shazia Arriaza MD McRae, Stephen, MD Renal mass Discharge Disposition: Home 10/03/2023 8:30 AM CDT - 10/03/2023 9:29 AM CDT Hospital Encounter [facility] [address] [place] [address] Margoth Souza MD Renal mass Discharge Disposition: Home 10/03/2023 Travel 10/02/2023 8:24 AM CDT - 10/02/2023 11:59 PM CDT Hospital Encounter Interventional Radiology [address] [place] [address], 4th [place] [address] Margoth Souza MD Ho, ThanDannielle Horn PA-C Encounter for other preprocedural examination (Primary Dx); Renal mass; 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 Discharge Disposition: Home 10/02/2023 Travel 09/24/2023 7:46 AM CDT - 09/24/2023 11:59 PM CDT Hospital Encounter [facility] [address] [place] [address] Roberto Poole PA Adrenal mass Discharge Disposition: Home 09/20/2023 Orders Only [facility] [address] [place] [address], 7th [place] [address] Roberto Poole PA Adrenal mass (Primary Dx) 09/19/2023 11:45 AM CDT Ancillary Procedure X-Ray Outpatient Center [address] [place] [address], 7th [place] [address] Shazia Arriaza MD Renal mass 09/19/2023 9:20 AM CDT - 09/19/2023 11:59 PM CDT Hospital Encounter [facility] [address] [place] [address] Shazia Arriaza MD Adenoma, NOS of adrenal gland, NOS <Left> Discharge Disposition: Home 09/19/2023 Orders Only Interventional Radiology [address] [place] [address], 4th [place] [address] Abilio Ng PA-C Renal mass (Primary Dx) 09/19/2023 Travel 09/19/2023 Telephone MD G[facility] [address] [place] [address] Barbara Rees MA 09/16/2023 4:00 PM CDT - 09/16/2023 11:59 PM CDT Hospital Encounter [facility] [address] [place] [address] Shazia Arriaza MD Renal mass; Adrenal mass Discharge Disposition: Home 09/16/2023 2:00 PM CDT Office Visit [facility] [address] [place] [address], 7th [place] [address] Margoth Souza MD Renal mass (Primary Dx); Adrenal mass; Adenoma, NOS of adrenal gland, NOS <Left>; 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 09/16/2023 12:30 PM CDT NPR MDA PATIENT ACCESS 09/16/2023 Travel 08/08/2023 8:00 PM CDT Ancillary Procedure Image Library [address] [place] [address] Margoth Souza MD Cancer 08/08/2023 6:40 AM CDT Ancillary Procedure Image Library [address] [place] [address] Margoth Souza MD Cancer after 01/20/2023 Surgical History Surgery Date Site/Laterality Comments TOE AMPUTATION x2, 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, 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 APPENDECTOMY 05/20/1973 - 05/19/1974 Open WRIST SURGERY Left HAND SURGERY Right HIP ARTHRODESIS W/ ILIAC CREST BONE GRAFT Bilateral For hand surgeries CERVICAL SPINE SURGERY C3-6 fusion, x2 TX LAPAROSCOPY SURG PARTIAL NEPHRECTOMY 01/02/2024 Abdomen/Left Procedure: ROBOTIC ASSISTED PARTIAL NEPHRECTOMY; Surgeon: Mragoth Souza MD; Location: MAIN OR; Service: UROLOGY TX ULTRASONIC GUIDANCE INTRAOPERATIVE 01/02/2024 Left Procedure: INTROPERATIVE [...] 1:30 PM CDT Appointment [facility] [address] [place] [address], [place] [address] Margoth Souza MD [address] [place] [phone] [email or web address] 02/10/2024 3:30 PM CDT Telemedicine [facility] [address] [facility], 7th Floor Ele[address] [place], [place] [phone] Margoth Souza MD [address] [place] [address] [email or web address] Health Maintenance Due Date Last Done Comments Pneumococcal Vaccine: Pediat rics (0 to 5 Years) and At-Risk Patients (6 to 64 Years) (1 of 2 - PCV) 01/09/1970 01/09/1975 COVID-19 Vaccine ( - season) 2024 Influenza Vaccine 01/19/2024 08/04/2018 Procedures Procedure Name [...] GLUCOSE SCREEN Routine 01/03/2024 7:04 AM CDT ZINC TRANSPORTER 8 AB Routine 01/03/2024 4:22 AM CDT GAD65 AB ASSAY SERUM Routine [...] INTRAOPERATIVE US STAT 01/02/2024 7:13 AM CDT TX ULTRASONIC GUIDANCE INTRAOPERATIVE 01/02/2024 6:08 AM CDT Renal mass Special Needs [email or web address]:Please collect and send tissue to pathology window with appropriate label. TX LAPAROSCOPY SURG PARTIAL NEPHRECTOMY 01/02/2024 6:08 AM CDT Renal mass Special Needs [email or web address]:Please collect and send tissue to pathology window with appropriate label. POC GLUCOSE SCREEN Routine 01/02/2024 6:[address] ABDOMEN W WO CONTRAST Routine 4:41 PM CDT Renal mass BB PREOP EXP DATE Routine 12/23/2023 8:51 AM CDT Renal mass PREOP UPDATED EXPIRATION Routine 8:51 AM CDT Renal mass TMP INTERPRETATION [...] ABDOMEN AND PELVIS Routine 2023 7:40 AM HAT TRIMMER Cancer OSI CT BRAIN Routine 07/17/2023 7:40 AM HAT TRIMMER Cancer after 01/20/2023 Results * (ABNORMAL) Basic Metabolic Panel- Total [...] reference intervals have been updated based on Italian Diabetes Association guidelines (Standards of Medical Care [...] by: Division of Pathology and Laboratory Medicine [address] [place] [id number] * POC Glucose Screen - Fingerstick (01/03/2024 [...] ORDERABLES - DE VICE Performing Organization Address [facility] Co de Phone Number [facility] Unless otherwise noted, all lab tests performed by: Division of Pathology and Laboratory Medicine [address] [place] [phone] * Zinc Transporter 8 Ab (01/03/2024 4:22 AM CDT) [facility] Zinc T8 AB <15.0 <15.0 U/mL 01/15/2024 11:18 AM CDT [facility] TIFF Comment: ADDITIONAL INFORMATION This test has been modified from the pearl technician's instructions. Its performance characteristics were determined by [facility] in a manner consistent with CLIA requirements. This test has not been cleared or approved by the U.S. Food and Drug Administration. Test Performed by: [address] [address] Agricultural Economics Teacher: Mary Jane Topete Ph.D.; CLIA# [id number] Blood Peripheral blood specimen / Unknown Venipuncture / Unknown 01/03/2024 4:22 AM CDT 01/03/2024 4:55 AM CDT Alicia Mcmanus APRN LAB BLOOD ORDERABLE S Performing Organization Address City/[facility] Co de Phone Number DINA MATTHEW * Islet Antigen 2 (IA-2) Antibody (01/03/2024 4:22 AM CDT) IA-2 Antibody 0.00 <=0.02 nmol/L 01/07/2024 12:20 AM CDT MAXWELL FERNANDO MATTHEW Comment: ADDITIONAL INFORMATION This test was developed and its performance characteristics determined by [facility] in a manner consistent with CLIA requirements. This test has not been cleared or approved by the U.S. Food and Drug Administration. Test Performed by: [address] [address] Agricultural Economics Teacher: Mary Jane Topete Ph.D.; CLIA# [id number] Blood Peripheral blood specimen / Unknown Venipuncture / Unknown 01/03/2024 4:22 AM CDT 01/03/2024 4:55 AM CDT Alicia Mcmanus APRN LAB BLOOD ORDERABLE S MCGREGOR FERNANDO MATTHEW * GREG Ab Assay (01/03/2024 4:22 AM CDT) Pathologist [facility] 0.00 <=0.02 nmol/L 01/07/2024 12:01 AM CDT MCGREGOR FERNANDO MATTHEW Comment: ADDITIONAL INFORMATION This test was developed and its performance characteristics determined by [facility] in a manner consistent with CLIA requirements. This test has not been cleared or approved by the U.S. Food and Drug Administration. Test Performed by: [facility] - [address] [address] Agricultural Economics Teacher: Mary Jane Topete Ph.D.; CLIA# [id number] Blood Peripheral blood specimen / Unknown Venipuncture / Unknown 01/03/2024 4:22 AM CDT 01/03/2024 4:55 AM CDT Alicia Mcmanus APRN LAB BLOOD ORDERABLE S Performing Organization Address City/[facility]/ZIP Co de Phone Number MCGREGOR EFRNANDO MATTHEW * Insulin Ab (01/03/2024 4:22 AM CDT) Pathologist [facility] Insulin Ab-[place] 0.00 0.00 - 0.02 nmol/L 01/06/2024 5:14 PM CDT MCGREGOR FERNANDO MATTHEW Comment: ADDITIONAL INFORMATION This test was developed and its performance characteristics determined by [facility] in a manner consistent with CLIA requirements. This test has not been cleared or approved by the U.S. Food and Drug Administration. Test Performed by: [facility] [address] Agricultural Economics Teacher: Mary Jane Topete Ph.D.; CLIA# [id number] Blood Peripheral blood specimen / Unknown Venipuncture / Unknown 01/03/2024 4:22 AM CDT 01/03/2024 4:55 AM CDT Alicia Mcmanus APRN LAB BLOOD ORDERABLE S Performing Organization Address [facility] Co de Phone Number MCGREGOR FERNANDO MATTHEW * C Peptide (01/03/2024 4:22 AM CDT) Pathologist [facility] C-Peptide 2.12 1.10 - 4.40 ng/mL 01/03/2024 5:48 AM CDT [facility] Blood Peripheral blood specimen / Unknown Venipuncture / Unknown 01/03/2024 4:22 AM CDT 01/03/2024 4:55 AM CDT Alicia Mcmanus APRN LAB BLOOD ORDERABLE S Performing Organization Address City/[facility]/ZIP Co de Phone Number [facility] Unless otherwise noted, all lab tests performed by: Division of Pathology and Laboratory Medicine [address] [place] [id number] * (ABNORMAL) Hemogram (01/02/2024 7:20 PM CDT) [...] by: Division of Pathology and Laboratory Medicine [address] [place] [phone] * (ABNORMAL) Beta Hydroxy Quant (01/02/2024 7:20 PM CDT) Only the most recent of2 resultswithin the time period is included. Pathologist [facility] Beta-Hydroxybuty rate 0.85(H) 0.02 - 0.27 mmol/L [...] by: Division of Pathology and Laboratory Medicine [address] [place] [address] * (ABNORMAL) .CBC (01/02/2024 12:19 PM CDT) Only the most recent of3 resultswithin the time period is included. Pathologist [facility] White Blood Cell 11.6(H) 4.1 - 10.5 [...] 31.1 - 35.2 g/dL 01/02/2024 12:39 PM T [facility] RDW-SD 39.0 37.5 - 49.7 fL 01/02/2024 12:39 PM CDT [facility] Red Cell Diameter Width 13.3 11.6 - 15.5 % 01/02/2024 12:39 PM T [facility] Platelet 305 160 - 397 K/uL 01/02/2024 12:39 PM CDT [facility] Mean Platelet Volume 9.7 9.1 - 12.6 fL 01/02/2024 12:39 PM T [facility] INRBC 0.0 0.0 - 0.1 /100 WBC 01/02/2024 12:39 PM T [facility] Comment: The INRBC (instrument NRBC) value [...] - 0.12 K/uL 01/02/2024 12:39 PM CDT [facility] Blood Peripheral blood specimen / Unknown Venipuncture / Unknown 01/02/2024 12:19 PM CDT 01/02/2024 12:33 PM CDT Hakan Nagy MD LAB BLOOD ORDERABLES [facility] Unless otherwise noted, all lab tests performed by: Division of Pathology and Laboratory Medicine [address] [place] [id number] * (ABNORMAL) ABG+ (ABG, Na, K, Cl, Glu, Hgb, Hct, Lactate, Ion Ca) (01/02/2024 10:38 AM CDT) Only the most recent of2 resultswithin the time period is included. Sodium Arterial 140 136 - 146 mmol/L 01/02/2024 10:44 AM CDT [facility] Potassium Arterial 3.7 3.4 - 4.5 mmol/L 01/02/2024 10:44 AM [facility] Chloride Arterial 103 98 - 106 mmol/L 01/02/2024 10:44 AM [facility] Glucose Arterial 270(H) 70 - 105 mg/dL 01/02/2024 10:44 AM [facility] Hgb Art 12.9(L) 13.5 - 17.5 g/dL 01/02/2024 10:44 AM [facility] Hematocrit Arterial 40(L) 42 - 52 % 01/02/2024 10:44 AM [facility] Lactate Arterial 1.0(H) 0.4 - 0.8 mmol/L 01/02/2024 10:44 AM [facility] Calcium Ionized Arterial 1.14(L) 1.15 - 1.29 mmol/L 01/02/2024 10:44 AM [facility] pH Arterial 7.35 7.35 - 7.45 01/02/2024 10:44 AM [facility] P CO2 Arterial 42.9 35.0 - 48.0 mmHg 01/02/2024 10:44 AM [facility] P O2 Arterial 164(H) 83 - 108 mmHg 01/02/2024 10:44 AM [facility] Bicarbonate Arterial 24 21 - 28 mmol/L 01/02/2024 10:44 AM [facility] WB Anion Gap 13 7 - 16 mmol/L 01/02/2024 10:44 AM [facility] Base Excess Arterial -2 -2 - 3 mmol/L 01/02/2024 10:44 AM [facility] Oxygen Saturation Arterial 99 95 - 99 % 01/02/2024 10:44 AM [facility] Oxygen FLOW Rate/ FiO2 01/02/2024 10:44 AM [facility] O2 Therapy 01/02/2024 10:44 AM [facility] Art Kirill Test Not Applicable (Arterial Line Draw) 01/02/2024 10:44 AM [facility] Blood Arterial blood specimen / Unknown Arterial [...] 0.0301. Alonzo Liu MD LAB BLOOD ORDERABLES [facility] Unless otherwise noted, all lab tests performed by: Division of Pathology and Laboratory Medicine [address] [place] [id number] * Intraoperative Ultrasound - For Image Storage [...] Souza MD BLOOD BANK TEST ORDRay FRANKLINJARON [facility] Transfusion Services [address] [facility] [address] [place] [address] * Preop Updated Expiration (12/23/2023 8:51 AM CDT) Pathologist [facility] PREOP STATUS 01/02/2024 11:33 PM CDT [facility] PREOP EXP DATE 01/02/2024 01/02/2024 11:33 PM CDT [facility] Blood Peripheral blood specimen / Unknown Venipuncture / Unknown 12/23/2023 8:51 AM CDT 12/23/2023 9:00 AM CDT Margoth Souza MD BLOOD BANK TEST MIKE PEREZ [facility] Transfusion Services [address] [facility] [address] [place] [address] * (ABNORMAL) Urinalysis with Reflex Culture (12/23/2023 8:51 AM CDT) Only the most recent of2 resultswithin the time period is included. Urine Appearance Clear Clear 12/23/19 9:33 AM CDT [facility] Urine Color Straw Colorless, Straw, Yellow, Dark Yellow, Straw-Yellow 12/23/2023 9:33 AM CDT [facility] Urine Specific [place] 1.032 1.003 - 1.035 12/23/2023 9:33 AM [...] WBC <1 <=2 /HPF 12/23/2023 9:33 AM T [facility] Urine RBC 1 <=2 /HPF 12/23/2023 9:33 AM CDT [facility] Urine Voided urine specimen / Unknown Non-blood Collection / Unknown 12/23/2023 8:51 AM CDT 12/23/2023 9:10 AM CDT [facility] - 12/23/2023 9:33 AM CDT Some reporting parameters within the Urinalysis test have changed due to the implementation of new instrumentation in the [facility], allowing greater sensitivity of measurement. Urinalysis results reported by the [facility] using existing instrumentation, as well as Urinalysis testing performed manually or by back-up methodology at the main campus, will remain relatively unchanged. New reporting parameters and units will now be reported for all hamdenes. Margoth Souza MD URINE ORDERABLES [facility] Unless otherwise noted, all lab tests performed by: Division of Pathology and Laboratory Medicine [address] [place] [id number] * 30-Day Pre-Op Type and Screen (12/23/2023 [...] Souza MD BLOOD BANK TEST ORDE RABLES Performing Organization Address City/[facility] Co de Phone Number [facility] Transfusion [facility] [address] [place] [address] [address] [place] [address] * TMP Interpretation Exception PreOp Expiration (12/23/2023 [...] ORDRay PEREZ [facility] [address] [place] [address] * (ABNORMAL) Comprehensive Metabolic Panel (12/23/2023 8:51 AM CDT) Only the most recent of2 resultswithin the time period is included. Bilirubin Total 0.3 0.0 - 1.2 mg/dL 12/23/2023 9:41 AM CDT [facility] Comment:Indocyanine Green (I CG) may cause falsely elevated bilirubin results. Total and direct bilirubin must not be measured from samples containing indocyanine green. False elevation of total bilirubin can be seen in patients with IgG concentrations above 28 g/L. eGFR 75 >=60 mL/min/1. 73 sq. m 12/23/2023 9:41 AM CDT [facility] Comment: The eGFRcr is calculated with [...] 6.4 - 8.3 gm/dL 12/23/2023 9:41 AM CDT [facility] Calcium Level Total 9.9 8.2 - 10.2 mg/dL 12/23/2023 9:41 AM [facility] Alkaline Phosphatase 80 40 - 129 U/L 12/23/2023 9:41 AM [facility] Albumin Level 4.2 3.5 - 5.2 gm/dL 12/23/2023 9:41 AM [facility] AST 15 <=40 U/L 12/23/2023 9:41 AM [facility] ALT 14 <=41 U/L 12/23/2023 9:41 AM [facility] Sodium Level 138 136 - 145 mmol/L 12/23/2023 9:41 AM [facility] Potassium Level 4.2 3.4 - 4.5 mmol/L 12/23/2023 9:41 AM [facility] Chloride 101 98 - 107 mmol/L 12/23/2023 9:41 AM [facility] CO2 29 22 - 29 mmol/L 12/23/2023 9:41 AM [facility] Anion Gap 8 4 - 14 mmol/L 12/23/2023 9:41 AM [facility] Creatinine 1.13 0.67 - 1.17 mg/dL 12/23/2023 9:41 AM [facility] BUN 14 6 - 23 mg/dL 12/23/2023 9:41 AM [facility] Glucose Level 294(H) 70 - 99 mg/dL 12/23/2023 9:41 AM [facility] Comment: Effective 12/14/15, the glucose reference intervals have been updated based on Italian Diabetes Association guidelines (Standards of Medical Care [...] MD LAB BLOOD ORDERABLES Performing Organization Address City/[facility] Co de Phone Number [facility] Unless otherwise noted, all lab tests performed by: Division of Pathology and Laboratory Medicine [address] [place] [phone] * (ABNORMAL) Hemoglobin A1c (12/23/2023 8:51 AM CDT) Only the most recent of2 resultswithin the time period is included. [facility] Hemoglobin A1c 9.7(H) 4.3 - 5.6 % [...] MD LAB BLOOD ORDERABLES Performing Organization Address [facility] Co de Phone Number [facility] Unless otherwise noted, all lab tests performed by: Division of Pathology and Laboratory Medicine [address] [place] [phone] * ACTH (12/09/2023 9:45 AM CDT) Only the most recent of2 resultswithin the time period is included. [facility] ACTH 22 7 - 63 pg/mL 12/09/2023 [...] with extended dilution as it exceeds the pearl technician's recommended limit. ACTH reference intervals are established for the morning hours from 7-10 am. Due to the circadian rhythm of ACTH levels in plasma, the sample collection time must be noted. Caution should be exercised when interpreting such values and done in conjunction with clinical context. Veronica Del Castillo APRN LAB BLOOD ORDERABL ES Performing Organization Address City/[facility]/ZIP Co de Phone Number [facility] Unless otherwise noted, all lab tests performed by: Division of Pathology and Laboratory Medicine [address] [place] [phone] * DHEA Sulfate (12/09/2023 9:45 AM CDT) Pathologist [facility] [place] [id number] 20 - 299 mcg/dL 12/10/2023 12:10 PM CDT [facility] TIFF Comment: Test Performed by: [facility] [address] [id number] Agricultural Economics Teacher: Mary Jane Topete Ph.D.; CLIA# [id number] Blood Peripheral blood specimen / Unknown Venipuncture / Unknown 12/09/2023 9:45 AM CDT 12/09/2023 9:56 AM CDT Veronica Del Castillo APRN LAB BLOOD ORDERABL ES Performing Organization Address [facility] Co de Phone Number [facility] TIFF * Cortisol, Total (12/09/2023 9:45 AM CDT) Only the most recent of4 resultswithin the time period is included. Pathologist [facility] Cortisol 11.39 4.82 - 19.50 mcg/dL 12/09/2023 11:00 AM CDT [facility] Blood Peripheral blood specimen / Unknown Venipuncture / Unknown 12/09/2023 9:45 AM CDT 12/09/2023 9:55 AM CDT Narrative [facility] - 12/09/2023 11:00 AM CDT Cortisol [...] 2.47 - 11.9 mcg/dL Veronica Del Castillo APRN LAB BLOOD ORDERABL ES [facility] Unless otherwise noted, all lab tests performed by: Division of Pathology and Laboratory Medicine [address] [place] [id number] * IR CT GUIDED BIOPSY RENAL (10/03/2023 10:27 AM CDT) Anatomical Region Laterality Modality Abdomen/Pelvis, Organ (liver/spleen/kidney) Computed Tomography Narrative 10/04/2023 9:03 AM CDT Table formatting from the original result was not included. Date of Procedure: 10/03/23 Attending Physician: Kumar Comer MD Television Newscast Director: None Pre Procedure Diagnosis: Renal mass Post [...] with Interventional Radiology required. Shazia Arriaza MD [facility] IR ORDERABLES * Pathology Biopsy Interpretation (10/03/2023 10:19 AM CDT) Submitted Clinical History Renal mass [N28.89] 10/04/2023 9:52 AM CDT [facility] Diagnosis A: Kidney, left, biopsy: RENAL CELL CARCINOMA, CLEAR CELL TYPE, ISUP/WHO NUCLEAR GRADE 1. CCG/FGT 10/04/2023 9:52 AM CDT [facility] Gross Description A: Kidney, left, left kidney: Multiple soft castillo-brown tissue cores and core fragments, less than 0.1 cm - 0.2 cm in length and up to 0.1 cm in diameter, entirely submitted in A1. ET 10/04/2023 9:52 AM CDT [facility] Biomarker Block(s) Tumor: A1 10/04/2023 9:52 AM CDT [facility] Disclaimer "Some tests reported here may have been developed and performance characteristics determined by [facility] Pathology and Laboratory Medicine. These tests have not been specifically cleared or approved by the U.S. Food and Drug Administration. If applicable, controls were reviewed and showed appropriate reactivity." 10/04/2023 9:52 AM CDT [facility] Tissue (Kidney, Left) 10/03/2023 10:19 AM CDT 10/03/2023 12:29 PM CDT Shazia Arriaza MD LAB PATHOLOGY [facility] [address] [id number], * Prothrombin Time (10/03/2023 9:27 AM CDT) Prothrombin Time 12.6 11.9 - 14.5 second(s) 10/03/2023 9:57 AM CDT [facility] International Normalization Ratio 0.98 0.87 - 1.12 10/03/2023 9:57 AM CDT [facility] Blood Peripheral blood specimen / Unknown Venipuncture / Unknown 10/03/2023 9:27 AM CDT 10/03/2023 9:28 AM CDT Abilio Ng PA-C LAB BLOOD ORDERABL ES [facility] [address] [place] [address] * Type and Screen (10/03/2023 9:27 AM [...] Ng PA-C BLOOD BANK TEST OR DERABLES [facility] [id number] [place] [address] * X-ray Chest 2 Views (09/19/2023 9:24 [...] Arriaza MD ECG ORDERABLES Performing Organization Address [facility] Co de Phone Number STEPH IECG * Metanephrines Fractionated (09/16/2023 4:24 PM CDT) Pathologist [facility] Normetane Free-Maxwell 0.43 <0.90 nmol/L 09/19/2023 2:59 PM CDT [facility] Metanephr Free-Maxwell <0.20 <0.50 nmol/L 09/19/2023 2:59 PM CDT [facility] Comment: ADDITIONAL INFORMATION This test was developed and its performance characteristics determined by [facility] in a manner consistent with CLIA requirements. This test has not been cleared or approved by the U.S. Food and Drug Administration. Test Performed by: [facility] [address] Agricultural Economics Teacher: Scot Skelton M.D. Ph.D.; CLIA# [id number] Blood Peripheral blood specimen / Unknown Venipuncture / Unknown 09/16/2023 4:24 PM CDT 09/16/2023 4:41 PM CDT Shazia Arriaza MD LAB BLOOD ORDERABL ES Performing Organization Address City/[facility] Co de Phone Number [facility] TIFF * Hepatitis C Virus Antibody (09/16/2023 4:24 PM CDT) Pathologist [facility] HCVAb. Non Reactive Non Reactive 09/17/2023 9:11 [...] LAB BLOOD ORDERABL ES Performing Organization Address [facility]/ZIP Co de Phone Number [facility] Unless otherwise noted, all lab tests performed by: Division of Pathology and Laboratory Medicine [address] [place] [id number] * Aldosterone Level (09/16/2023 4:24 PM CDT) [facility] 8.1 <=21 ng/dL 09/20/2023 1:02 AM CDT [facility] TIFF Comment: ADDITIONAL INFORMATION Reference range for patients 11 years and older is based on upright A.M. collection from subjects without sodium restrictions. This test was developed and its performance characteristics determined by [facility] in a manner consistent with CLIA requirements. This test has not been cleared or approved by the U.S. Food and Drug Administration. Test Performed by: [facility] - [address] [address] Agricultural Economics Teacher: Scot Skelton M.D. Ph.D.; CLIA# [id number] Blood Peripheral blood specimen / Unknown Venipuncture / Unknown 09/16/2023 4:24 PM CDT 09/16/2023 4:41 PM CDT Shazia Arriaza MD LAB BLOOD ORDERABL ES Performing Organization Address City/[facility]/ZIP Co de Phone Number [facility] JASONANAIS * Renin Activity (09/16/2023 4:24 PM CDT) [facility] 4.3 ng/mL/h 09/19 3:42 PM CDT [facility] TIFF Comment: REFERENCE VALUE (Peripheral vein specimen) Na-deplete, upright: Mean: 5.9 Range: 2.9-10.8 Na-replete, upright: Mean: 1.0 Range: < or =0.6-3.0 ADDITIONAL INFORMATION Testing performed by Liquid Chromatography-Tandem Mass Spectrometry (LC-MS/MS). This test was developed and its performance characteristics determined by [facility] in a manner consistent with CLIA requirements. This test has not been cleared or approved by the U.S. Food and Drug Administration. Test Performed by: [address] [address] Agricultural Economics Teacher: Scot Skelton M.D. Ph.D.; CLIA# [id number] Blood Peripheral blood specimen / Unknown Venipuncture / Unknown 09/16/2023 4:24 PM CDT 09/16/2023 4:41 PM CDT Shazia Arriaza MD LAB BLOOD ORDERABL ES Performing Organization Address City/[facility]/ZIP Co de Phone Number [facility] TIFF * Urine Culture (09/16/2023 4:24 PM CDT) Pathologist [facility] Urine Culture Normal site mirna present. Generally of low significance. Correlate with clinical data and culture history. 09/18/2023 8:31 AM CDT [facility] Urine Voided urine specimen / Unknown Non-blood Collection / Unknown 09/16/2023 4:24 PM CDT 09/16/2023 4:41 PM CDT Shazia Arriaza MD MICROBIOLOGY - GEN ERAL ORDERABLES [facility] Unless otherwise noted, all lab tests performed by: Division of Pathology and Laboratory Medicine [address] [place] [id number] * TSH (09/16/2023 4:24 PM CDT) [facility] Thyroid Stimulating Hormone 1.43 0.27 - 4.20 mcunit/mL 09/16/2023 5:23 PM CDT [facility] Blood Peripheral blood specimen / Unknown Venipuncture / Unknown 09/16/2023 4:24 PM CDT 09/16/2023 4:41 PM CDT Shazia Arriaza MD LAB BLOOD ORDERABL ES [facility] [address] [place] [address] * T4 (09/16/2023 4:24 PM CDT) Pathologist [facility] Thyroxine 7.0 4.5 - 11.7 mcg/dL 09/16/2023 5:55 PM CDT [facility] Blood Peripheral blood specimen / Unknown Venipuncture / Unknown 09/16/2023 4:24 PM CDT 09/16/2023 4:41 PM CDT Shazia Arriaza MD LAB BLOOD ORDERABL ES [facility] Unless otherwise noted, all lab tests performed by: Division of Pathology and Laboratory Medicine [address] [place] [id number] * Confirm ABORh (09/16/2023 4:23 PM CDT) [facility] ABORh Confirm O POS 09/16/2023 4:15 PM CDT [facility] Blood Peripheral blood specimen / Unknown Venipuncture / Unknown 09/16/2023 4:23 PM CDT 09/16/2023 4:41 PM CDT Shazia Arriaza MD BLOOD BANK TEST OR DERABLES [facility] [address] [place] [address] [id number] [place] [address] * OSI CT Abdomen and Pelvis (07/18/2023 7:40 AM HAT TRIMMER) Narrative Systemgenerated, Documentation - 08/08/2023 7:40 AM CDT Study acquired at another institution. For comparison only. No MD Gimenez originated interpretation requested or available. Margoth Souza MD IMG OUTSIDE IMAGE OR DERABLES * OSI CT Brain (07/17/2023 7:40 AM HAT TRIMMER) Narrative Systemgenerated, Documentation - 08/08/2023 7:40 AM CDT Study acquired at another institution. For comparison only. No MD Gimenez originated interpretation requested or available. Margoth Souza MD IMEdith OUTSIDE IMAGE OR DERABLES after 01/20/2023 Advance Directives * Full Code (Latest Code Status on File) Date Activated Date Inactivated Comments 01/02/2024 1:48 PM 01/03/2024 7:17 PM Care Teams Master Ship Relationship Specialty Start Date End Date Margoth Souza MD [address] [place] [id number] [email or web address] PCP - General Urology 07/30/23 Mary Jane Cassidy MD [address] [place] [address] [email or web address] Consulting Physician Endocrinology 12/09/23 Barry He MD [address] [place] [address] [email or web address] Consulting Physician Internal Medicine 12/23/23 Patience Hunt MD [address] [place] [address] [email or web address] Consulting Physician Endocrinology 12/31/23
[2024-01-20 21:46] LABS: Absolute Basophils 0.1 K/uL (0-0.5); Absolute Eosinophils 0.3 K/uL (0-0.5); Absolute Lymphocytes (CBC) 0.7 K/uL (0.7-4.9); Absolute Monocytes 0.7 K/uL (0.1-1.3); Absolute Neutrophil 5.8 K/uL (1.8-8.0); Basophils % 0.8 % (0-1.3); Eosinophils % 3.6 % (0-4.4); Hematocrit 28.5 % (39.6-49.0); Hemoglobin 9.3 g/dL (13.6-17.9); Lymphocytes % 9.4 % (15.3-44.8); MCH 26.6 pg (27.0-35.0); MCHC 32.6 g/dL (32.0-36.0); MCV 81.5 fL (80-100); MPV 8.4 fL (7.6-11.3); Monocytes % 9.6 % (3.3-12.3); Neutrophils % 76.6 % (41.7-73.7); Platelets 318 thou/uL (152-406); RBC Red Blood Cell Count 3.51 M/uL (4.33-5.43); Red Cell Distribution Width 15.7 % (12.1-15.2)
[2024-01-20 21:51] LABS: Protime INR 1.26
--- NOTE | 2024-01-20 21:56 | RAD REPORT ---
EXAM DESCRIPTION: RAD - Chest Single View - 01/20/2024 9:40 pm CLINICAL HISTORY: DYSPNEA COMPARISON: Chest Single View dated 01/09/2024; Chest Single View dated 10/11/2020; Abdomen 1 View ([facility] B) dated 08/21/2020; Chest Single View dated 08/18/2020; Abdomen Pelvis W Contrast dated 01/06/2024 FINDINGS: Lines: None. Lungs: The left lung base is not well visualized though this is favored to be due to underpenetration . Pleural: No significant pleural effusions or pneumothorax. Cardiac: Mild cardiomegaly. Mediastinum: Within normal limits. Bones: No acute fractures. Sternotomy. Other: None IMPRESSION: Left lung base not well-visualized. Apparent opacities at the left lung base may be due to underpenetration. An acute airspace process considered less likely. A dedicated PA and lateral cou ld better evaluate.
[2024-01-20 22:36] LABS: Anion Gap 10.2 mEq/L (5.0-15.0); Potassium 4.2 mEq/L (3.5-5.1)
[2024-01-20 22:42] LABS: Troponin High Sensitivity 741.6 pg/mL (<58.9)
[2024-01-20] MEDS ORDERED: FUROSEMIDE 20 MG/ 2ML VIAL ONE (23:00)
[2024-01-20] MEDS ORDERED: ASPIRIN EC 81 MG TAB PO ONE (23:00)
--- NOTE | 2024-01-20 23:52 | ER ---
Nurse's Notes [facility] Name: Zeke Mackay Sr Age: 59 yrs Sex: Male : 1965 Arrival Date: 01/20/2024 Time: 21:15 Bed 18 Private MD: Diagnosis: Volume Overload;Troponin Elevation Presentation: 01/19 21:19 Chief complaint: Patient states: states he is having bilateral ankle swelling and just cp4 doesn't feel right. Patient had a triple bypass 3 days ago and a left nephrectomy a week prior to that. Reports hx of DM. Coronavirus screen: Vaccine status: Patient reports being unvaccinated. Client denies travel out of the [place] in the last 14 days. At this time, the client does not indicate any symptoms associated with coronavirus-19. Ebola Screen: Patient negative for fever greater than or equal to 101.5 degrees Fahrenheit, and additional compatible Ebola Virus Disease symptoms Patient denies exposure to infectious person. Patient denies travel to an Ebola-affected area in the 21 days before illness onset. No symptoms or risks identified at this time. Initial Sepsis Screen: Does the patient meet any 2 criteria? No. Patient's initial sepsis screen is negative. Does the patient have a suspected source of infection? No. Patient's initial sepsis screen is negative. Risk Assessment: Do you want to hurt yourself or someone else? Patient reports no desire to harm self or others. Onset of symptoms was January 20, 2024. 21:19 Method Of Arrival: Wheelchair cp4 21:19 Acuity: RICKEY 3 cp4 Triage Assessment: 21:21 General: Appears uncomfortable, Behavior is calm, cooperative, appropriate for age. cp4 Pain: Denies pain. 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 - Infectious Disease History:: Denies. - Social history:: Smoking status: Patient denies any tobacco usage or history of. Screenin:35 [facility] ED Fall Risk Assessment (Adult) History of falling in the last 3 months, pc2 including since admission No falls in past 3 months (0 pts) Confusion or Disorientation No (0 pts) Intoxicated or Sedated No (0 pts) Impaired Gait No (0 pts) Mobility Assist Device Used No (0 pt) Altered Elimination No (0 pt) Score/Fall Risk Level 0 - 2 = Low Risk Oriented to surroundings, Maintained a safe environment, Hourly rounding (assess needs \T\ fall precautionary measures) done. Abuse screen: Denies threats or abuse. Denies injuries from another. Nutritional screening: No deficits noted. Tuberculosis screening: No symptoms or risk factors identified. Assessment: 21:36 General: Appears in no apparent distress. uncomfortable, well groomed, Behavior is pc2 calm, cooperative, appropriate for age. Pain: Complains of pain in ankle. Neuro: Level of Consciousness is awake, alert, obeys commands, Oriented to person, place, time, situation, Appropriate for age. 21:36 Cardiovascular: Denies chest pain, palpitations, shortness of breath, Heart tones S1 S2 pc2 Patient's skin is warm and dry. Rhythm is sinus rhythm Chest pain is denied. 21:36 Respiratory: Airway is patent Respiratory effort is even, unlabored, Respiratory pc2 pattern is regular, symmetrical. GI: No signs and/or symptoms were reported involving the gastrointestinal system. : No signs and/or symptoms were reported regarding the genitourinary system. Urine is clear. EENT: No signs and/or symptoms were reported regarding the EENT system. Derm: Wound noted chest Other: surgical. sutures intact. no drainage noted. Musculoskeletal: Swelling present in right leg and left leg Reports mild swelling in lower legs and just not feeling good following the procedure. 22:30 Reassessment: No changes from previously documented assessment. Patient and/or family pc2 updated on plan of care and expected duration. Pain level reassessed. 23:45 Reassessment: Patient appears in no apparent distress at this time. Patient and/or pc2 family updated on plan of care and expected duration. Pain level reassessed. Patient is alert, oriented x 3, equal unlabored respirations, skin warm/dry/pink. 01/20 01:00 Reassessment: Patient and/or family updated on plan of care and expected duration. Pain pc2 level reassessed. Patient is alert, oriented x 3, equal unlabored respirations, skin warm/dry/pink. 02:00 Reassessment: Patient appears in no apparent distress at this time. Patient is alert, pc2 oriented x 3, equal unlabored respirations, skin warm/dry/pink. Vital Signs: 01/19 21:19 BP 156 / 71; Pulse 62; Resp 18; Temp 97.4; Pulse Ox 100% ; Weight 86.18 kg; Height 0 cp4 ft. 0 in. ; Pain 0/10; 22:00 BP 153 / 69; Pulse 62; Resp 16; Pulse Ox 98% on R/A; pc2 23:31 BP 165 / 69; Pulse 64; Resp 16; Pulse Ox 94% ; pc2 01/20 00:00 BP 136 / 74; Pulse 62; Resp 16; Pulse Ox 95% on R/A; pc2 01:00 BP 149 / 67; Pulse 64; Resp 16; Pulse Ox 94% on R/A; pc2 02:00 BP 155 / 68; Pulse 65; Resp 18; Pulse Ox 94% on R/A; pc2 01/19 21:19 Body Mass Index 872512.38 (86.18 kg, 2 cm) cp4 01/19 21:19 Pain Scale: Adult cp4 ED Course: 01/19 21:18 Patient arrived in ED. cp4 21:20 Pardeep Knox MD is Attending Physician. ec2 21:21 Triage completed. cp4 21:21 Arm band placed on right wrist. Patient placed in waiting room. cp4 21:24 Lawanda Wang, RN is Primary Nurse. pc2 21:25 Client placed on continuous cardiac and pulse oximetry monitoring. NIBP monitoring pc2 applied. 21:30 Initial lab(s) drawn, by me, sent to lab. pc2 21:30 Inserted saline lock: 20 gauge in right antecubital area, using aseptic technique. pc2 Blood collected. Flushed with 10 mL NS. 21:34 Basic Metabolic Panel Sent. pc2 21:34 CBC with Diff Sent. pc2 21:34 NT PRO-BNP Sent. pc2 21:34 PT-INR Sent. pc2 21:34 Troponin HS Sent. pc2 21:34 X-ray(s) taken. pc2 21:35 Patient has correct armband on for positive identification. Bed in low position. Call pc2 light in reach. Side rails up X2. Provided Education on: POC and time frame. 21:36 No provider procedures requiring assistance completed. pc2 21:42 XRAY Chest (1 view) In Process Unspecified. EDMS 22:07 Lab(s) recollected, by me, sent to lab. pc2 22:08 Troponin HS Sent. pc2 22:08 NT PRO-BNP Sent. pc2 22:08 Basic Metabolic Panel Sent. pc2 22:38 Chest Pa And Lat (2 Views) XRAY In Process Unspecified. EDMS 01/20 02:25 Report given to ARTURO Anderson receiving patient to [facility] room 335. pc2 02:52 Report given to [facility] at bedside. pc2 02:53 Patient transferred, IV remains in place. pc2 Administered Medications: 01/19 23:11 Drug: Aspirin PO Chewable Tablet 324 mg PO once; 81 mg tablets x 4 Route: PO; pc2 01/20 00:00 Follow up: Response: No adverse reaction pc2 01/19 23:11 Drug: Furosemide IVP 20 mg IVP once; give over 2 minutes Route: IVP; Site: right [facility] antecubital; 01/20 00:00 Follow up: Response: No adverse reaction; Marked relief of symptoms pc2 Medication: 01/19 21:35 VIS not applicable for this client. pc2 Output: 01/20 00:00 Urine: 1000ml (Voided); Total: 1000ml. pc2 02:38 Urine: 900ml (Voided); Total: 1900ml. pc2 Outcome: 01/19 23:52 ER care complete, transfer ordered by . ec2 01/20 02:53 Transferred by ground EMS [facility]. to other acute care facility: [address] Transfer form completed. Condition: stable Instructed on the need for transfer, Demonstrated understanding of instructions, 03:01 Patient left the ED. pc2 Signatures: Dispatcher [employer] EDAZ Pardeep Knox MD MD ec2 Emilia Segovia cp4 Lawanda Wang, RN RN pc2 Corrections: (The following items were deleted from the chart) 01/19 21:23 21:21 PMHx: Triple Bypass (Renal Carcinoma removed); cp4 cp4 21:23 21:21 PSHx: triple bypass (Renal Carcinoma removed); cp4 cp4 01/20 02:38 01/19 21:36 Neuro: Level of Consciousness is awake, alert, obeys commands, Oriented to pc2 person, place, time, situation, Appropriate for age pc2
--- NOTE | 2024-01-20 23:52 | EDPHYS ---
Physician Documentation [facility] Name: Zeke Mackay Sr Age: 59 yrs Sex: Male : 1965 Arrival Date: 01/20/2024 Time: 21:15 Bed 18 Private MD: ED Physician Pardeep Knox HPI: 01/19 21:43 This 59 yrs old Male presents to ER via Wheelchair with complaints of Ankle ec2 Swelling, Doesn't Feel Right. 21:43 Patient arrives today for evaluation of bilateral lower extremity swelling. Patient ec2 recently had a bypass several days ago. Patient reports some dyspnea on exertion as well. Procedure occurred at [facility] ED. Patient reports otherwise no additional concerns.. 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 - Infectious Disease History:: Denies. - Social history:: Smoking status: Patient denies any tobacco usage or history of. ROS: 21:43 Constitutional: as per hpi ec2 Exam: 21:25 Constitutional: No acute distress ec2 21:25 ECG was reviewed by the Attending Physician. 21:43 Constitutional: GEN: NAD Head: atraumatic Eyes: EOMI Ears: External ears are ec2 normal. CV: regular rate, trace lower extremity edema bilaterally LUNGS: no respiratory distress ABD: non-distended SKIN: Well-appearing surgical scar in the anterior chest MSK: no evidence of trauma Vital Signs: 21:19 BP 156 / 71; Pulse 62; Resp 18; Temp 97.4; Pulse Ox 100% ; Weight 86.18 kg; Height 0 cp4 ft. 0 in. ; Pain 0/10; 22:00 BP 153 / 69; Pulse 62; Resp 16; Pulse Ox 98% on R/A; pc2 23:31 BP 165 / 69; Pulse 64; Resp 16; Pulse Ox 94% ; pc2 01/20 00:00 BP 136 / 74; Pulse 62; Resp 16; Pulse Ox 95% on R/A; pc2 01:00 BP 149 / 67; Pulse 64; Resp 16; Pulse Ox 94% on R/A; pc2 02:00 BP 155 / 68; Pulse 65; Resp 18; Pulse Ox 94% on R/A; pc2 01/19 21:19 Body Mass Index [id number] (86.18 kg, 2 cm) cp4 01/19 21:19 Pain Scale: Adult cp4 MDM: 01/19 21:22 Patient medically screened. ec2 21:25 Data reviewed: vital signs. ec2 21:25 ED course: EKG independently reviewed and interpreted by me, shows normal sinus rhythm, ec2 rate of 64, ST changes in lead isolated V2, nonspecific changes noted in lateral leads I and aVL. Intervals are nonconcerning.. 21:46 ED course: Patient arrives today for evaluation of lower extremity edema. Examination ec2 remarkable for well-appearing nontoxic dividual's otherwise in no acute distress with a reassuring examination. Will obtain lab work, chest x-ray. Differential clues volume overload, renal dysfunction, ACS.. 21:59 ED course: CBC shows slight anemia. Chest x-ray shows possible opacities in the left ec2 lung base, obtain repeat PA and also obtain lateral view . 22:45 ED course: Metabolic profile reassuring. BNP at 5000, troponin is 740 . ec2 23:51 ED course: Chest x-ray shows pleural effusions. Patient will require admission for ec2 diuresis as well as troponin elevation. Patient recently had surgery at [facility] ED and will be best suited to continue his management there.. 01/20 00:22 ED course: I discussed the case with who agrees this is a patient for ec2 transfer. Patient updated regarding plan of care and agreeable. . 01/19 21:24 Order name: Basic Metabolic Panel; Complete Time: 22:44 ec2 01/19 21:24 Order name: CBC with Diff; Complete Time: 21:59 ec2 01/19 21:24 Order name: NT PRO-BNP; Complete Time: 22:44 ec2 01/19 21:24 Order name: PT-INR; Complete Time: 21:59 ec2 01/19 21:24 Order name: Troponin HS; Complete Time: 22:44 ec2 01/19 21:24 Order name: XRAY Chest (1 view); Complete Time: 21:59 ec2 01/19 21:59 Order name: Chest Pa And Lat (2 Views) XRAY ec2 01/19 21:24 Order name: EKG; Complete Time: 21:25 ec2 01/19 21:24 Order name: Cardiac monitoring; Complete Time: 21:25 ec2 01/19 21:24 Order name: EKG - Nurse/Tech; Complete Time: 21:25 ec2 01/19 21:24 Order name: IV Saline Lock; Complete Time: 21:33 ec2 01/19 21:24 Order name: Labs collected and sent; Complete Time: 21:33 ec2 01/19 21:24 Order name: O2 Per Protocol; Complete Time: 21:25 ec2 01/19 21:24 Order name: O2 Sat Monitoring; Complete Time: 21:25 ec2 01/19 21:51 Order name: Misc. Order: RECOLLECT ALL LABS; Complete Time: 22:08 rv1 Administered Medications: 01/19 23:11 Drug: Aspirin PO Chewable Tablet 324 mg PO once; 81 mg tablets x 4 Route: PO; pc2 01/20 00:00 Follow up: Response: No adverse reaction pc2 01/19 23:11 Drug: Furosemide IVP 20 mg IVP once; give over 2 minutes Route: IVP; Site: right pc2 antecubital; 01/20 00:00 Follow up: Response: No adverse reaction; Marked relief of symptoms pc2 Disposition Summary: 01/20/24 23:52 Transfer Ordered Notes: Transfer Location: [facility] System ec2 Reason: Higher level of care ec2 Condition: Stable ec2 Problem: an acute exacerbation ec2 Symptoms: have improved ec2 Accepting Physician: transferring doc(01/21/24 03:01) pc2 Diagnosis - Volume Overload ec2 - Troponin Elevation ec2 Forms: - Medication Reconciliation Form ec2 - SBAR form ec2 Signatures: Dispatcher [employer] EDLaquita Antonio rv1 Pardeep Knox MD MD ec2 Emilia Segovia cp4 Lawanda Wang, RN RN pc2 Corrections: (The following items were deleted from the chart) 01/19 21:23 21:21 PMHx: Triple Bypass (Renal Carcinoma removed); cp4 cp4 21:23 21:21 PSHx: triple bypass (Renal Carcinoma removed); cp4 cp4 01/20 03:01 09/02 23:52 transferring doc ec2 pc2
[2024-01-21 03:15] VITALS: TEMP 97.4
[2024-01-21 03:29] VITALS: O2SAT 94
[2024-01-21 03:30] VITALS: BP 155/68
--- NOTE | 2024-01-21 12:36 | EKG ---
Test Date: 2024-01-20 Test Time: 21:20:38 Director Law Enforcement: CORNELIUS MEASUREMENT RESULTS: Intervals: Rate: 64 CO: 150 QRSD: 82 QT: 450 QTc: 464 [place]: P: 29 CO: 150 QRS: 56 T: 90 INTERPRETIVE STATEMENTS: Sinus rhythm with premature atrial complexes T wave abnormality, consider lateral ischemia Abnormal ECG Compared to ECG 01/09/2024 10:44:25 Atrial premature complex(es) now present Sinus arrhythmia no longer present Left ventricular hypertrophy no longer present Prolonged QT interval no longer present T-wave abnormality still present Possible ischemia still present Electronically Signed On 01-21-24 12:35:23 CDT by Lucas Huang
--- NOTE | 2024-01-21 14:02 | RAD REPORT ---
EXAM DESCRIPTION: RAD - Chest Pa And Lat (2 Views) - 01/20/2024 10:36 pm CLINICAL HISTORY: DYSPNEA COMPARISON: CXR 02/09/2023 FINDINGS: Cardiac silhouette is within normal limits. Blunted costophrenic angles, left greater than right, compatible with pleural fluid collection versus pleural thickening. Bandlike opacities within the lungs may represent scar versus subsegmental atelectasis. Patient is status post median sternoto my. Vague lucencies within the left chest wall suggest subcutaneous emphysema. Recommend follow-up. E KG leads project over the chest. There is no acute osseous process visualized. IMPRESSION: 1. Blunted costophrenic angles, left greater than right, compatible with pleural fluid collection versus pleural thickening. 2. Vague lucencies within the left chest wall suggest subcutaneous emphysema. Recommend follow-up. No discrete pneumothorax visualized. Electronically signed by: Heriberto Gale MD 01/20/2024 11:22 PM CDT Due to temporary technical issues with the PACS/Fluency reporting system, reports are being signed by the in house radiologists without review as a courtesy to insure prompt reporting. The interpreting radiologist is fully responsible for the content of the report.
== END 2024-01-21 03:01 | disposition short-term general hospital (02) ==
LOC: ER 21:15
DX: E87.70 Fluid overload, unspecified (principal); R79.89 Other specified abnormal findings of blood chemistry; Z95.1 Presence of aortocoronary bypass graft; R07.9 Chest pain, unspecified; I10 Essential (primary) hypertension; E11.9 Type 2 diabetes mellitus without complications; Z85.53 Personal history of malignant neoplasm of renal pelvis
CPT/HCPCS: 93005; 96374; 99285

== ENCOUNTER 2024-02-27 05:00 | Emergency (ER) | payer OTHER ==
--- OUTSIDE RECORDS SUMMARY | 2024-02-27 05:04 | XMS REPORT | Clinical Summary ---
Author Name Unknown Organization [facility] [place] Address [address] [place] [address] Care Team Providers Care Commander Internal Affairs Name Role Phone Margoth Souza MD Primary Care Provider [phone] Mary Jane Cassidy MD Unavailable [phone] Barry He MD Unavailable Patience Hunt MD [...] 60 Units/day under the skin daily. Active traMADol (ULTRAM) 50 mg tabletIndications :Renal [...] 8am the following day. 1 tablet 09/20/2023 polyethylene glycol (GLYCOLAX) 17 gram/dose powderIndications :Renal mass Fill powder to justice inside cap (17 g). Stir and Dissolve in any 4 to 8 ounces of beverage then drink solution daily for 30 days as directed. 510 g 01/03/2024 Active Problems Problem Noted Date Diagnosed Date Hemoglobin A1c greater than 9% indicating poor diabetic control 01/02/2024 snf current use of systemic steroid 2023 Adverse [...] Encounters Date Type Department Care Team Description 02/11/2024 Travel 02/10/2024 3:30 PM CDT Telemedicine [facility] [address] [facility], 7th [place] [address] Margoth Souza MD Renal mass (Primary Dx) 01/02/2024 7:15 AM CDT Ancillary Procedure MAIN OR [address] [place] [address] Margoth Souza MD 01/02/2024 7:00 AM CDT - 01/02/2024 11:40 AM CDT Surgery MAIN OR [address] [place] [address] Margoth Souza MD ROBOTIC ASSISTED PARTIAL NEPHRECTOMY 01/02/2024 6:58 AM CDT Anesthesia Event MAIN OR [address] [place] [address] Alonzo Liu MD Majekodumi, Jessy, PXATON 01/02/2024 5:04 AM CDT - 01/03/2024 5:05 PM CDT Hospital Encounter MAIN P09B [address] [place] [address] Margoth Souza MD Renal mass (Primary Dx) Discharge Disposition: Home 01/02/2024 Travel 12/31/2023 1:04 PM CDT - 12/31/2023 11:59 PM CDT Hospital Encounter Main CT IMAGING [address] [place] [address], 3rd [place] [address] Margoth Souza MD Renal mass Discharge Disposition: Home 12/31/2023 8:00 AM CDT Consult [facility] [address] [place] [address], 6th Floor Elevator [place] [phone] Nakia Kirby APRN Khan, Sonya, MD Type 2 diabetes mellitus with hyperglycemia [E11.65] (Primary Dx); Pre-surgery evaluation 12/30/2023 9:30 AM CDT Office Visit [facility] [address] [place] [address], 7th [place] [address] Margoth Souza MD Renal mass 12/30/2023 Travel 12/30/2023 Telephone [facility] Center [address] [place] [address], 6th [place] [address] Winnie Archiblad, RN Appointment (Cannot get internet-phone broke) 12/30/2023 Orders Only [facility] [address] [place] [address], 7th [place] [address] Roberto Poole PA Renal mass (Primary Dx) 12/29/2023 Orders Only Endocrine Center [address] [place] [address], [address] [place] [address] Veronica Del Castillo APRN 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); Endocrine/metabolic screening; Renal cell carcinoma <Left side> 12/25/2023 8:36 AM CDT Anesthesia Event [facility] [address] [place] [address] Lien Antonio RN 12/23/2023 10:30 AM CDT Consult [facility] Management [address] [place] [address] Margoth Souza MD Oh, Jeong, MD Encounter for other preprocedural examination (Primary Dx); Renal mass; Hyperlipidemia, not otherwise specified 12/23/2023 9:00 AM CDT POEM Appointments [facility] [address] [place] [address] Margoth Souza MD Pre-surgery evaluation (Primary Dx) 12/23/2023 8:45 AM CDT - 12/23/2023 11:59 PM CDT Hospital Encounter [facility] [address] [place] [address] Margoth Souza MD Renal mass Discharge Disposition: Home 12/23/2023 Travel 12/09/2023 9:33 AM CDT - 12/09/2023 11:59 PM CDT Hospital Encounter [facility] [address] [place] [address] Veronica Del Castillo APRN 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; Endocrine/metabolic screening Discharge Disposition: Home 12/09/2023 8:30 AM CDT Consult [facility] [address] [place] [address] Mary Jane Cassidy MD 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); Endocrine/metabolic screening; Renal cell carcinoma <Left side> 12/09/2023 Travel 10/23/2023 Orders Only [facility] [address] [place] [address], [facility] [place] [address] Roberto Poole PA Renal mass (Primary Dx); Adrenal mass 10/03/2023 9:30 AM CDT - 10/03/2023 11:59 PM CDT Hospital Encounter Interventional Radiology [address] [place] [address], [facility] [place] [address] Shazia Arriaza MD McRae, Stephen, MD Renal mass Discharge Disposition: Home 10/03/2023 8:30 AM CDT - 10/03/2023 9:29 AM CDT Hospital Encounter [facility] [address] [place] [address] Margoth Souza MD Renal mass Discharge Disposition: Home 10/03/2023 Travel 10/02/2023 8:24 AM CDT - 10/02/2023 11:59 PM CDT Hospital Encounter Interventional Radiology [address] [place] [address] Margoth Souza MD Ho, ConradoRenata Horn, PAKori Encounter for other preprocedural examination (Primary Dx); Renal mass; 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 Discharge Disposition: Home 10/02/2023 Travel 09/24/2023 7:46 AM CDT - 09/24/2023 11:59 PM CDT Hospital Encounter [facility] [address] [place] [address] Roberto Poole PA Adrenal mass Discharge Disposition: Home 09/20/2023 Orders Only [facility] [address] [place] [address], [facility] [place] [address] Roberto Poole PA Adrenal mass (Primary Dx) 09/19/2023 11:45 AM CDT Ancillary Procedure [facility] Outpatient [facility] [address] [place] [address], [address] [place], [place] [address] [address] Shazia Arriaza MD Renal mass 09/19/2023 9:20 AM CDT - 09/19/2023 11:59 PM CDT Hospital Encounter [facility] [address] [place] [address] Shazia Arriaza MD Adenoma, NOS of adrenal gland, NOS <Left> Discharge Disposition: Home 09/19/2023 Orders Only Interventional Radiology [address] [place] [address], 4th [place] [address] Abilio Ng, EVANGELINA Renal mass (Primary Dx) 09/19/2023 Travel 09/19/2023 Telephone MD [facility] [address] [place] [phone] Barbara Rees MA 09/16/2023 4:00 PM CDT - 09/16/2023 11:59 PM CDT Hospital Encounter [facility] [address] [place] [address] Shazia Arriaza MD Renal mass; Adrenal mass Discharge Disposition: Home 09/16/2023 2:00 PM CDT Office Visit [facility] [address] [place] [address], 7th [place] [address] Margoth Souza MD Renal mass (Primary Dx); Adrenal mass; Adenoma, NOS of adrenal gland, NOS <Left>; 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 09/16/2023 12:30 PM CDT NPR [facility] PATIENT ACCESS 09/16/2023 Travel 08/08/2023 8:00 PM CDT Ancillary Procedure [facility] [address] [place] [address] Margoth Souza MD Cancer 08/08/2023 6:40 AM CDT Ancillary Procedure [facility] [address] [place] [address] Margoth Souza MD Cancer after 02/27/2023 Surgical History Surgery Date Site/Laterality Comments TOE AMPUTATION x2, 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, 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 APPENDECTOMY 05/20/1973 - 05/19/1974 Open WRIST SURGERY Left HAND SURGERY Right HIP ARTHRODESIS W/ ILIAC CREST BONE GRAFT Bilateral For hand surgeries CERVICAL SPINE SURGERY C3-6 fusion, x2 AL LAPAROSCOPY SURG PARTIAL NEPHRECTOMY 01/02/2024 Abdomen/Left Procedure: ROBOTIC ASSISTED PARTIAL NEPHRECTOMY; Surgeon: Margoth Souza MD; Location: MAIN OR; Service: UROLOGY AL ULTRASONIC GUIDANCE INTRAOPERATIVE 01/02/2024 Left Procedure: INTROPERATIVE [...] Care Team (Late st Contact Info) Description 02/05/2025 10:45 AM CDT Appointment [facility] [address] [place] [address] Margoth Souza MD [address] [place] [address] [email or web address] 02/05/2025 11:15 AM CDT Ancillary Procedure [facility]-Ray Outpatient Center [address] [facility], 7th [place] [address] Margoth Souza MD [facility] [place] [address] [email or web address] 02/05/2025 12:20 PM CDT Ancillary Procedure CT Imaging [address] [facility], [facility] [place] [address] Margoth Souza MD [address] [place] [address] [email or web address] 02/08/2025 2:30 PM CDT Telemedicine [facility] [address] [place] [address], [address] [place] [address] Margoth Souza MD [address] [place] [phone] [email or web address] Health Maintenance Due Date Last Done Comments Pneumococcal Vaccine: Pediat rics (0 to 5 Years) and At-Risk Patients (6 to 64 Years) (1 of 2 - PCV) 01/09/1970 01/09/1975 COVID-19 Vaccine ( - season) 2024 Influenza Vaccine (#1) 2024 08/04/2018 Procedures Procedure Name Priority Date/Time Associated [...] CALCIUM TOTAL Routine 01/02/2024 12:19 PM CDT PATHOLOGY SURGICAL INTERPRETATION Routine 01/02/2024 10:42 AM CDT Renal mass ARTERIAL BLOOD GAS PLUS STAT 01/02/20 24 10:38 AM CDT ARTERIAL BLOOD GAS PLUS STAT 01/02/20 8:42 AM CDT POC GLUCOSE SCREEN Routine 01/02/2024 8:18 AM CDT INTRAOPERATIVE US STAT 01/02/2024 7:13 AM CDT AL ULTRASONIC GUIDANCE INTRAOPERATIVE 01/02/2024 6:08 AM CDT Renal mass Special Needs [email or web address]:Please collect and send tissue to pathology window with appropriate label. AL LAPAROSCOPY SURG PARTIAL NEPHRECTOMY 01/02/2024 6:08 AM CDT Renal mass Special Needs [email or web address]:Please collect and send tissue to pathology window with appropriate label. POC GLUCOSE SCREEN Routine 01/02/2024 6:[address] ABDOMEN W WO CONTRAST Routine 4:41 PM CDT Renal mass BB PREOP EXP DATE Routine 12/23/2023 8:51 AM CDT Renal mass PREOP UPDATED EXPIRATION Routine 024 8:51 AM CDT Renal mass TMP INTERPRETATION EXCEPTION PREOP EXPIRATION Routine 12/23/2023 8:51 AM CDT Renal mass URINALYSIS W/REFLEX CULTURE GROUPER Routine 12/23/2023 8:51 AM CDT Renal mass .CBC Routine 12/23/2023 8:51 AM CDT Renal mass 30-DAY PRE-OP TYPE & SCREEN Routine 09/2023 8:51 AM CDT Renal mass HEMOGLOBIN A1C Routine 12/23/2023 8:51 AM CDT Renal mass URINALYSIS W/REFLEX CULTURE Routine 09/2023 8:51 AM CDT Renal mass COMPREHENSIVE METABOLIC [...] Routine 09/16/2023 4:24 PM CDT Renal mass URINALYSIS W/REFLEX CULTURE GROUPER Routine 09/16/2023 4:24 PM CDT Renal mass [...] Routine 08/19 4:24 PM CDT Adrenal mass URINALYSIS W/REFLEX CULTURE Routine 08/19 4:24 PM CDT Renal mass COMPREHENSIVE METABOLIC [...] ABDOMEN AND PELVIS Routine 2023 7:40 AM DANCING MASTER Cancer OSI CT BRAIN Routine 07/17/2023 7:40 AM DANCING MASTER Cancer after 02/27/2023 Results * (ABNORMAL) Basic Metabolic Panel- Total Calcium (01/03/2024 2:59 PM CDT) Only the most recent of7 resultswithin the time period is included. eGFR 71 >=60 mL/min/1. 73 sq. m 01/03/2024 3:44 PM CDT [facility] Comment: The eGFRcr is calculated with [...] - 10.2 mg/dL 01/03/2024 3:44 PM CDT [facility] Sodium Level 139 136 - 145 mmol/L 01/03/2024 3:44 PM CDT [facility] Potassium Level 3.9 3.4 - 4.5 mmol/L 01/03/2024 3:44 PM CDT [facility] Chloride 103 98 - 107 mmol/L 01/03/2024 3:44 PM CDT [facility] CO2 28 22 - 29 mmol/L 01/03/2024 3:44 PM CDT [facility] Anion Gap 8 4 - 14 mmol/L 01/03/2024 3:44 PM CDT [facility] Creatinine 1.18(H) 0.67 - 1.17 mg/dL 01/03/2024 3:44 PM CDT [facility] BUN 15 6 - 23 mg/dL 01/03/2024 3:44 PM CDT [facility] Glucose Level 137(H) 70 - 99 mg/dL 01/03/2024 3:44 PM CDT [facility] Comment: Effective 12/14/15, the glucose reference intervals have been updated based on [place] [employer] guidelines (Standards of Medical Care [...] Alicia Mcmanus APRN LAB BLOOD ORDERABLE S [facility] Unless otherwise noted, all lab tests performed by: Division of Pathology and Laboratory Medicine [address] [place] [phone] * POC Glucose Screen - Fingerstick (01/03/2024 11:19 AM CDT) Only the most recent of15 resultswithin the time period is included. Glucose Screen 70 70 - 99 mg/dL 01/03/2024 11:20 AM CDT [facility] POC Sample Type Capillary 01/03/2024 11:20 AM CDT [facility] Blood 01/03/2024 11:1 9 AM CDT 01/03/2024 11:20 AM CDT Narrative [facility] - 01/03/2024 11:20 AM CDT Capillary blood [...] Souza MD POCT ORDERABLES - DE VICE [facility] Unless otherwise noted, all lab tests performed by: Division of Pathology and Laboratory Medicine [address] [place] [address] * Zinc Transporter 8 Ab (01/03/2024 4:22 AM CDT) Zinc T8 AB <15.0 <15.0 U/mL 01/15/2024 11:18 AM CDT [facility] Comment: ADDITIONAL INFORMATION This test has been modified from the last sawyer's instructions. Its performance characteristics were determined by [facility] in a manner consistent with CLIA requirements. This test has not been cleared or approved by the U.S. Food and Drug Administration. Test Performed by: [place] [address] Felt Puller: Mary Jane Topete Ph.D.; CLIA# [id number] Blood Peripheral blood specimen / Unknown Venipuncture / Unknown 01/03/2024 4:22 AM CDT 01/03/2024 4:55 AM CDT Alicia Mcmanus APRN LAB BLOOD ORDERABLE S [facility] * Islet Antigen 2 (IA-2) Antibody (01/03/2024 4:22 AM CDT) Pathologist [facility] IA-2 Antibody 0.00 <=0.02 nmol/L 01/07/2024 12:20 AM CDT [facility] Comment: ADDITIONAL INFORMATION This test was developed and its performance characteristics determined by [facility] in a manner consistent with CLIA requirements. This test has not been cleared or approved by the U.S. Food and Drug Administration. Test Performed by: [place] [address] Felt Puller: Mary Jane Topete Ph.D.; CLIA# [id number] Blood Peripheral blood specimen / Unknown Venipuncture / Unknown 01/03/2024 4:22 AM CDT 01/03/2024 4:55 AM CDT Alicia Mcmanus APRN LAB BLOOD ORDERABLE S Performing Organization Address [facility] de Phone Number [facility] * GREG Ab Assay (01/03/2024 4:22 AM CDT) [id number] Ab-[place] 0.00 <=0.02 nmol/L 01/07/2024 12:01 AM CDT [facility] Comment: ADDITIONAL INFORMATION This test was developed and its performance characteristics determined by [facility] in a manner consistent with CLIA requirements. This test has not been cleared or approved by the U.S. Food and Drug Administration. Test Performed by: [place] [address] Felt Puller: Mary Jane Topete Ph.D.; CLIA# [id number] Blood Peripheral blood specimen / Unknown Venipuncture / Unknown 01/03/2024 4:22 AM CDT 01/03/2024 4:55 AM CDT Alicia Mcmanus APRN LAB BLOOD ORDERABLE S Performing Organization Address [facility] de Phone Number [facility] * Insulin Ab (01/03/2024 4:22 AM CDT) Insulin Ab-[place] 0.00 0.00 - 0.02 nmol/L 01/06/2024 5:14 PM CDT [facility] Comment: ADDITIONAL INFORMATION This test was developed and its performance characteristics determined by [facility] in a manner consistent with CLIA requirements. This test has not been cleared or approved by the U.S. Food and Drug Administration. Test Performed by: [facility] - [address] [address] Felt Puller: Mary Jane Topete Ph.D.; CLIA# [id number] Blood Peripheral blood specimen / Unknown Venipuncture / Unknown 01/03/2024 4:22 AM CDT 01/03/2024 4:55 AM CDT Alicia Mcmanus APRN LAB BLOOD ORDERABLE S [facility] * C Peptide (01/03/2024 4:22 AM CDT) Pathologist [facility] C-Peptide 2.12 1.10 - 4.40 ng/mL 01/03/2024 5:48 AM CDT [facility] Blood Peripheral blood specimen / Unknown Venipuncture / Unknown 01/03/2024 4:22 AM CDT 01/03/2024 4:55 AM CDT Alicia Mcmanus APRN LAB BLOOD ORDERABLE S [facility] Unless otherwise noted, all lab tests performed by: Division of Pathology and Laboratory Medicine [address] [place] [phone] * (ABNORMAL) Hemogram (01/02/2024 7:20 PM CDT) White Blood Cell 13.8(H) 4.1 - 10.5 K/uL 01/02/2024 7:33 PM CDT [facility] Red Blood Cell 4.74 4.30 - 6.04 M/uL 01/02/2024 7:33 PM CDT [facility] Hemoglobin 12.2(L) 13.3 - 17.4 g/dL 01/02/2024 7:33 PM CDT [facility] Hematocrit 38.6(L) 39.5 - 51.8 % 01/02/2024 7:33 PM CDT [facility] Mean Cell Volume 81(L) 82 - 99 fL 01/02/2024 7:33 PM CDT [facility] Mean Cell Hemoglobin 25.7(L) 26.6 - 33.2 pg 01/02/2024 7:33 PM CDT [facility] Mean Cell Hemoglobin Concentration 31.6 31.1 - 35.2 g/dL 01/02/2024 7:33 PM CDT [facility] RDW-SD 39.1 37.5 - 49.7 fL 01/02/2024 7:33 PM CDT [facility] Red Cell Diameter Width 13.1 11.6 - 15.5 % 01/02/2024 7:33 PM CDT [facility] Platelet 291 160 - 397 K/uL 01/02/2024 7:33 PM CDT [facility] Mean Platelet Volume 9.7 9.1 - 12.6 fL 01/02/2024 7:33 PM CDT [facility] INRBC 0.0 0.0 - 0.1 /100 WBC 01/02/2024 7:33 PM CDT [facility] Comment: The INRBC (instrument NRBC) value reflects [...] 7:20 PM CDT 01/02/2024 7:24 PM CDT Arianocent Linda PRICE LAB BLOOD ORDERABLES [facility] Unless otherwise noted, all lab tests performed by: Division of Pathology and Laboratory Medicine [address] [place] [phone] * (ABNORMAL) Beta Hydroxy Quant (01/02/2024 7:20 PM CDT) Only the most recent of2 resultswithin the time period is included. Beta-Hydroxybuty rate 0.85(H) 0.02 - 0.27 mmol/L 01/02/2024 8:01 PM CDT [facility] Is patient fasting? No 01/02/2024 8:01 PM CDT [facility] Comment:A fasting specimen i s recommended and results obtained from non-fasting specimens should be interpreted with caution using reference ranges based on fasting status and in conjunction with clinical context. Blood Peripheral blood specimen / Unknown Venipuncture / Unknown 01/02/2024 7:20 PM CDT 01/02/2024 7:24 PM CDT Narrative [facility] - 01/02/2024 8:01 PM CDT Reference range based on fasting. Alicia Mcmanus APRN LAB BLOOD ORDERABLE S [facility] Unless otherwise noted, all lab tests performed by: Division of Pathology and Laboratory Medicine [address] [place] [phone] * (ABNORMAL) .CBC (01/02/2024 12:19 PM CDT) Only the most recent of3 resultswithin the time period is included. White Blood Cell 11.6(H) 4.1 - 10.5 K/uL 01/02/2024 12:39 PM CDT [facility] Red Blood Cell 4.71 4.30 - 6.04 M/uL 01/02/2024 12:39 PM CDT [facility] Hemoglobin 12.4(L) 13.3 - 17.4 g/dL 01/02/2024 12:39 PM CDT [facility] Hematocrit 38.1(L) 39.5 - 51.8 % 01/02/2024 12:39 PM CDT [facility] Mean Cell Volume 81(L) 82 - 99 fL 01/02/2024 12:39 PM CDT [facility] Mean Cell Hemoglobin 26.3(L) 26.6 - 33.2 pg 01/02/2024 12:39 PM CDT [facility] Mean Cell Hemoglobin Concentration 32.5 31.1 - 35.2 g/dL 01/02/2024 12:39 PM CDT [facility] RDW-SD 39.0 37.5 - 49.7 fL 01/02/2024 12:39 PM CDT [facility] Red Cell Diameter Width 13.3 11.6 - 15.5 % 01/02/2024 12:39 PM CDT [facility] Platelet 305 160 - 397 K/uL 01/02/2024 12:39 PM CDT [facility] Mean Platelet Volume 9.7 9.1 - 12.6 fL 01/02/2024 12:39 PM CDT [facility] INRBC 0.0 0.0 - 0.1 /100 WBC 01/02/2024 12:39 PM CDT [facility] Comment: The INRBC (instrument NRBC) value reflects the enumeration of nucleated red blood cells contained in a 200uL sample of whole blood analyzed by the instrument. This value may differ from the NRBC value reported in a manual differential, which is based on a 100 cell differential. Neutrophil % 90.6(H) 43.2 - 72.7 % 01/02/2024 12:39 PM CDT [facility] Lymphocyte % 6.8(L) 16.8 - 46.2 % 01/02/2024 12:39 PM CDT [facility] Monocyte % 1.9(L) 5.1 - 12.5 % 01/02/2024 12:39 PM CDT [facility] Eosinophil % 0.1(L) 0.4 - 6.3 % 01/02/2024 12:39 PM CDT [facility] Basophil % 0.3 0.2 - 1.4 % 01/02/2024 12:39 PM CDT [facility] IGRE % 0.3 0.1 - 1.5 % 01/02/2024 12:39 PM CDT [facility] Comment:The IGRE% includes M etamyelocytes, Myelocytes and Promyelocytes. Neutrophil Abs 10.48(H) 1.95 - 7.25 K/uL 01/02/2024 12:39 PM CDT [facility] Lymphocyte Abs 0.79(L) 1.01 - 3.24 K/uL 01/02/2024 12:39 PM CDT [facility] Monocyte Abs 0.22(L) 0.24 - 0.85 K/uL 01/02/2024 12:39 PM CDT [facility] Eosinophil Abs 0.01(L) 0.02 - 0.50 K/uL 01/02/2024 12:39 PM CDT [facility] Basophil Abs 0.03 0.02 - 0.09 K/uL 01/02/2024 12:39 PM CDT [facility] IG Abs 0.03 0.01 - 0.12 K/uL 01/02/2024 12:39 PM CDT [facility] Blood Peripheral blood specimen / Unknown Venipuncture / Unknown 01/02/2024 12:19 PM CDT 01/02/2024 12:33 PM CDT Hakan Nagy MD LAB BLOOD ORDERABLES [facility] Unless otherwise noted, all lab tests performed by: Division of Pathology and Laboratory Medicine [address] [place] [id number] * Pathology Surgical Interpretation (01/02/2024 10:42 AM CDT) Submitted Clinical History Renal mass [N28.89] 01/22/2024 10:13 PM CDT [facility] Diagnosis A: Perinephric fat, resection: Fibroadipose tissue, negative for tumor. B: Kidney, left, hilar mass, partial nephrectomy: RENAL CELL CARCINOMA, CLEAR CELL TYPE. (SEE CAP PROTOCOL) [place] thrombus in a branch of renal vein. (See comment) PXT/FHH 01/22/2024 10:13 PM CDT [facility] Comment The thrombus in the branch of the renal vein does not have any epithelial cells, which is confirmed by Cytokeratin cocktail and PAX8 immunohistochemical stains (on blocks B2 and B9). 01/22/2024 10:13 PM CDT [facility] Synoptic Checklist KIDNEY: Nephrectomy KIDNEY: NEPHRECTOMY - All Specimens 8th Edition - Protocol posted: 11/16/2020 SPECIMEN Procedure: Partial nephrectomy Specimen Laterality: Left TUMOR Tumor Focality: Unifocal Tumor Site: Upper pole Tumor Size: Greatest Dimension (Centimeters): 3.5 cm Additional Dimension (Centimeters): 2.5 cm Additional Dimension (Centimeters): 2 cm Histologic Type: Clear cell renal cell carcinoma Histologic Grade (WHO / ISUP): G2 (nucleoli conspicuous and eosinophilic at 400x magnification, visible but not prominent at 100x magnification) Tumor Extent: Limited to kidney Sarcomatoid Features: Not identified Rhabdoid Features: Not identified Tumor Necrosis: Not identified Lymphovascular Invasion: Not identified MARGINS Margin Status: All margins negative for invasive carcinoma REGIONAL LYMPH NODES Regional Lymph Node Status: Not applicable (no regional lymph nodes submitted or found) PATHOLOGIC STAGE CLASSIFICATION (pTNM, AJCC 8th Edition) Reporting of pT, pN, and (when applicable) pM categories is based on information available to the pathologist at the time the report is issued. As per the AJCC (Chapter 1, 8th Ed.) it is the managing physician s responsibility to establish the final pathologic stage based upon all pertinent information, including but potentially not limited to this pathology report. Primary Tumor (pT): pT1a Regional Lymph Nodes (pN): pN not assigned (no nodes submitted or found) ADDITIONAL FINDINGS Additional Findings in Nonneoplastic Kidney: Insufficient tissue 01/22/2024 10:13 PM CDT [facility] Gross Description A: Perinephric fat, or 33: Received fresh is a single irregular unoriented portion of yellow-red lobulated fibrofatty tissue with focal brown-black cautery (4.8 x 3.4 x 1.8 cm) sectioned to reveal grossly unremarkable yellow-red lobulated fibrofatty tissue without apparent mass lesional lymph node grossly identified. Component Assembler section in A1. PB B: Kidney, left, left renal hilar mass (permanent) or 33: Received fresh is a partial nephrectomy specimen (4.7 x 3.2 x 2.7 cm) including perinephric adipose tissue (4.3 x 3.2 x 2.7 cm). Roughened red-brown renal parenchyma and peripheral brown-black cautery is present to indicate the parenchymal resection margin. Adjacent to parenchymal resection margin designated by white plastic clip is in undesignated lumen (1.2 cm in length by 0.7 cm in greatest diameter) consistent with renal vein branch received with open margin from which extrudes a portion of pale orange-castillo apparent thrombus (0.5 x 0.3 x 0.3 cm past vessel margin, 0.7 cm greatest total dimension). Thrombus is mobile within the lumen grossly, not definitively attached to the vessel wall or involving vessel margin. Secondary undesignated apparent vessel margin at cautery consistent with possible artery identified and removed en face. There is a (3.5 x 2.5 x 2.0 cm) well circumscribed tumor in the kidney. The mass is orange-red, soft solid to microcystic with focal hemorrhage (approximately 30%) and focal castillo-brown hyalinization (approximately 20%). The tumor is grossly abutting the closest parenchymal resection margin. The tumor bulges into but does not grossly invade into the perinephric adipose tissue. Tumor does not grossly involve renal sinus adipose tissue. The adjacent kidney parenchyma is unremarkable. Tumor entirely submitted as follows. Scant perinephric adipose tissue retained. Tissue procured for research protocols. INK CODE: Blue-parenchymal margin Black-vessel margin SECTION CODE: B1, vessel margin en face ink side down B2, thrombus in toto B3, undesignated possible arterial margin en face B4-B9, tumor entirely in serial perpendicular to parenchymal resection margin, vessels with additional apparent tumor thrombus in B8-B9 PB 01/22/2024 10:13 PM CDT [facility] Biomarker Block(s) Tumor: B8 Normal: A1 01/22/2024 10:13 PM CDT [facility] Disclaimer "Some tests reported here may have been developed and performance characteristics determined by [facility] Pathology and Laboratory Medicine. These tests have not been specifically cleared or approved by the U.S. Food and Drug Administration. If applicable, controls were reviewed and showed appropriate reactivity." 01/22/2024 10:13 PM CDT [facility] Tissue (Perinephric Fat) 01/02/2024 10:42 AM CDT 01/02/2024 11:03 AM CDT Tissue specimen (specimen) (Kidney, Left) 01/02/2024 10:43 AM CDT 01/02/2024 11:03 AM CDT Margoth Souza MD LAB PATHOLOGY ORDERA BLES [facility] [address] [place] [address], [place] * (ABNORMAL) ABG+ (ABG, Na, K, Cl, Glu, Hgb, Hct, Lactate, Ion Ca) (01/02/2024 10:38 AM CDT) Only the most recent of2 resultswithin the time period is included. Sodium Arterial 140 136 - 146 mmol/L 01/02/2024 10:44 AM [facility] Potassium Arterial 3.7 3.4 - 4.5 mmol/L 01/02/2024 10:44 AM [facility] Chloride Arterial 103 98 - 106 mmol/L 01/02/2024 10:44 AM [facility] Glucose Arterial 270(H) 70 - 105 mg/dL 01/02/2024 10:44 AM [facility] Hgb Art 12.9(L) 13.5 - 17.5 g/dL 01/02/2024 10:44 AM [facility] Hematocrit Arterial 40(L) 42 - 52 % 01/02/2024 10:44 AM [facility] Lactate Arterial 1.0(H) 0.4 - 0.8 mmol/L 01/02/2024 10:44 AM [facility] Calcium Ionized Arterial 1.14(L) 1.15 - 1.29 mmol/L 01/02/2024 10:44 AM [facility] pH Arterial 7.35 7.35 - 7.45 01/02/2024 10:44 AM [facility] P CO2 Arterial 42.9 35.0 - 48.0 mmHg 01/02/2024 10:44 AM [facility] P O2 Arterial 164(H) 83 - 108 mmHg 01/02/2024 10:44 AM [facility] Bicarbonate Arterial 24 21 - 28 mmol/L 01/02/2024 10:44 AM [facility] WB Anion Gap 13 7 - 16 mmol/L 01/02/2024 10:44 AM [facility] Base Excess Arterial -2 -2 - 3 mmol/L 01/02/2024 10:44 AM [facility] Oxygen Saturation Arterial 99 95 - 99 % 01/02/2024 10:44 AM [facility] Oxygen FLOW Rate/ FiO2 01/02/2024 10:44 AM [facility] O2 Therapy 01/02/2024 10:44 AM CDT [facility] Art Kirill Test Not Applicable (Arterial Line Draw) 01/02/2024 10:44 AM CDT [facility] Blood Arterial blood specimen / Unknown Arterial Line / Unknown 01/02/2024 10:38 AM CDT 01/02/2024 10:41 AM CDT Narrative [facility] - 01/02/2024 10:44 AM CDT The ABL90 [...] 0.0301. Alonzo Liu MD LAB BLOOD ORDERABLES [facility] Unless otherwise noted, all lab tests performed by: Division of Pathology and Laboratory Medicine [address] [place] [id number] * Intraoperative Ultrasound - For Image Storage [...] Preop Exp Date (12/23/2023 8:51 AM CDT) Pathologist [facility] PREOP EXP DATE 01/22/2024 12/23/2023 2:19 PM CDT [facility] Blood Peripheral blood specimen / Unknown Venipuncture / Unknown 12/23/2023 8:51 AM CDT 12/23/2023 9:00 AM CDT Margoth Souza MD BLOOD BANK TEST KATYRay FRANKLINJARON [facility] [address] [place] [address] [place] [id number] * Preop Updated Expiration (12/23/2023 8:51 AM CDT) Pathologist [facility] PREOP STATUS 01/02/2024 11:33 PM CDT [facility] PREOP EXP DATE 01/02/2024 01/02/2024 11:33 PM CDT [facility] Blood Peripheral blood specimen / Unknown Venipuncture / Unknown 12/23/2023 8:51 AM CDT 12/23/2023 9:00 AM CDT Margoth Souza MD BLOOD BANK TEST ORDRay ANA [facility] [address] [place] [address] [place] [phone] * (ABNORMAL) Urinalysis with Reflex Culture (12/23/2023 8:51 AM CDT) Only the most recent of2 resultswithin the time period is included. Pathologist [facility] Urine Appearance Clear Clear 12/23/19 9:33 AM T [facility] Urine Color Straw Colorless, Straw, Yellow, Dark Yellow, Straw-Yellow 12/23/2023 9:33 AM T [facility] Urine Specific [place] 1.032 1.003 - 1.035 12/23/2023 9:33 AM [facility] Urine pH 6.0 5.0 - 8.0 12/23/2023 9:33 AM T [facility] Urine Glucose >=1000(A) Negative mg/dL 12/23/2023 9:33 AM T [facility] Urine Ketones Negative Negative mg/dL 12/23/2023 9:33 AM T [facility] Urine Blood Negative Negative 12/23/2023 9:33 AM T [facility] Urine Protein 30(A) Negative mg/dL 12/23/2023 9:33 AM T [facility] Urine Bilirubin Negative Negative 9:33 AM T [facility] Urine Urobilinogen Negative Negative 12/23/2023 9:33 AM [facility] Urine Nitrite Negative Negative 12/23/2023 9:33 AM [facility] Urine Leukocyte Esterase Negative Negative 12/23/2023 9:33 AM [facility] Urine Mucous Not Seen Not Seen, Trace /HPF 12/23/2023 9:33 AM [facility] Urine Bacteria Not Seen Not Seen /HPF 12/23/2023 9:33 AM T [facility] Urine Squamous Epithelial Cells OCC Not Seen, OCC, Rare /HPF 12/23/2023 9:33 AM [facility] Urine WBC <1 <=2 /HPF 12/23/2023 9:33 AM [facility] Urine RBC 1 <=2 /HPF 12/23/2023 9:33 AM [facility] Urine Voided urine specimen / Unknown Non-blood Collection / Unknown 12/23/2023 8:51 AM CDT 12/23/2023 9:10 AM CDT [facility] - 12/23/2023 9:33 AM CDT Some reporting parameters within the Urinalysis test have changed due to the implementation of new instrumentation in the Main [place], allowing greater sensitivity of measurement. Urinalysis results reported by the [facility] using existing instrumentation, as well as Urinalysis testing performed manually or by back-up methodology at the main campus, will remain relatively unchanged. New reporting parameters and units will now be reported for all campuses. Margoth Souza MD URINE ORDERABLES Performing Organization Address City/[facility]/ZIP Co de Phone Number [facility] Unless otherwise noted, all lab tests performed by: Division of Pathology and Laboratory Medicine [address] [place] [id number] * 30-Day Pre-Op Type and Screen (12/23/2023 8:51 AM CDT) Only the most recent of2 resultswithin the time period is included. ABORh O POS 12/23/2023 8:45 AM CDT [facility] ABSC Negative 12/23/2023 8:45 AM CDT [facility] BB Criteria Met Criteria met 12/23/2023 8:45 AM CDT [facility] Historical Record Check Complete 12/23/2023 8:45 AM CDT [facility] Blood Peripheral blood specimen / Unknown Venipuncture / Unknown 12/23/2023 8:51 AM CDT 12/23/2023 9:00 AM CDT Margoth Souza MD BLOOD BANK TEST ORDE RABLES Performing Organization Address City/[facility]/ZIP Co de Phone Number [facility] [address] [place] [address] [address] [place] [address] * TMP Interpretation Exception PreOp Expiration (12/23/2023 8:51 AM CDT) Only the most recent of2 resultswithin the time period is included. TMP Exception 12/24/2023 10:47 AM CDT [facility] TMP Signature . 12/24/2023 10:47 AM CDT [facility] Blood Peripheral blood specimen / Unknown Venipuncture / Unknown 12/23/2023 8:51 AM CDT 12/23/2023 9:00 AM CDT Margoth Souza MD BLOOD BANK TEST ORDE ANA [facility] [address] [place] [address] * (ABNORMAL) Comprehensive Metabolic Panel (12/23/2023 8:51 AM CDT) Only the most recent of2 resultswithin the time period is included. Bilirubin Total 0.3 0.0 - 1.2 mg/dL 12/23/2023 9:41 AM CDT [facility] Comment:Indocyanine Green (I CG) may cause falsely elevated bilirubin results. Total and direct bilirubin must not be measured from samples containing indocyanine green. False elevation of total bilirubin can be seen in patients with IgG concentrations above 28 g/L. eGFR 75 >=60 mL/min/1. 73 sq. m 12/23/2023 9:41 AM CDT [facility] Comment: The eGFRcr is calculated [...] 6.4 - 8.3 gm/dL 12/23/2023 9:[address] [facility] Calcium Level Total 9.9 8.2 - 10.2 mg/dL 12/23/2023 9:[address] [facility] Alkaline Phosphatase 80 40 - 129 U/L 12/23/2023 9:[address] [facility] Albumin Level 4.2 3.5 - 5.2 gm/dL 12/23/2023 9:[address] [facility] AST 15 <=40 U/L 12/23/2023 9:[address] [facility] ALT 14 <=41 U/L 12/23/2023 9:[address] [facility] Sodium Level 138 136 - 145 mmol/L 12/23/2023 9:[address] [facility] Potassium Level 4.2 3.4 - 4.5 mmol/L 12/23/2023 9:[address] [facility] Chloride 101 98 - 107 mmol/L 12/23/2023 9:[address] [facility] CO2 29 22 - 29 mmol/L 12/23/2023 9:[address] [facility] Anion Gap 8 4 - 14 mmol/L 12/23/2023 9:[address] [facility] Creatinine 1.13 0.67 - 1.17 mg/dL 12/23/2023 9:[address] [facility] BUN 14 6 - 23 mg/dL 12/23/2023 9:[address] [facility] Glucose Level 294(H) 70 - 99 mg/dL 12/23/2023 9:[address] [facility] Comment: Effective 12/14/15, the glucose reference intervals have been updated based on [place] [employer] guidelines (Standards of Medical Care [...] MD LAB BLOOD ORDERABLES Performing Organization Address [facility] de Phone Number [facility] Unless otherwise noted, all lab tests performed by: Division of Pathology and Laboratory Medicine [address] [place] [phone] * (ABNORMAL) Hemoglobin A1c (12/23/2023 8:51 AM CDT) Only the most recent of2 resultswithin the time period is included. [facility] Hemoglobin A1c 9.7(H) 4.3 - 5.6 % 12/23/2023 9:34 AM CDT [facility] Blood Peripheral blood specimen / Unknown Venipuncture / Unknown 12/23/2023 8:51 AM CDT 12/23/2023 9:00 AM CDT Narrative [facility] - 12/23/2023 9:34 AM CDT HbA1c values >=6.5% are diagnostic of diabetes mellitus. Diagnosis should be confirmed by repeat testing. Therapeutic Action suggested: >8.0% HbA1c; Goal of therapy: <7.0% HbA1c Margoth Souza MD LAB BLOOD ORDERABLES Performing Organization Address [facility] de Phone Number [facility] Unless otherwise noted, all lab tests performed by: Division of Pathology and Laboratory Medicine [address] [place] [address] * ACTH (12/09/2023 9:45 AM CDT) Only the most recent of2 resultswithin the time period is included. Pathologist [facility] ACTH 22 7 - 63 pg/mL 12/09/2023 12:19 PM CDT [facility] Blood Peripheral blood specimen / Unknown Venipuncture / Unknown 12/09/2023 9:45 AM CDT 12/09/2023 9:52 AM CDT Narrative [facility] - 12/09/2023 12:19 PM CDT Reference range established based on adult population (7 - 10am draws). No established reference values for p.m. draws. Results greater than 1826 pg/mL may not be reliable due to matrix effect with extended dilution as it exceeds the last sawyer's recommended limit. ACTH reference intervals are established for the morning hours from 7-10 am. Due to the circadian rhythm of ACTH levels in plasma, the sample collection time must be noted. Caution should be exercised when interpreting such values and done in conjunction with clinical context. Veronica Del Castillo GREEN PLUMBER LAB BLOOD ORDERABL ES [facility] Unless otherwise noted, all lab tests performed by: Division of Pathology and Laboratory Medicine [address] [place] [address] * DHEA Sulfate (12/09/2023 9:45 AM CDT) Pathologist [facility] [place] [address] 20 - 299 mcg/dL 12/10/2023 12:10 PM CDT [facility] Comment: Test Performed by: [facility] [address] [place] [address] Felt Puller: Mary Jane Topete Ph.D.; CLIA# [id number] Blood Peripheral blood specimen / Unknown Venipuncture / Unknown 12/09/2023 9:45 AM CDT 12/09/2023 9:56 AM CDT [facility] OrtaEvonne GREEN PLUMBER LAB BLOOD ORDERABL ES [facility] * Cortisol, Total (12/09/2023 9:45 AM CDT) Only the most recent of4 resultswithin the time period is included. Pathologist [facility] Cortisol 11.39 4.82 - 19.50 mcg/dL 12/09/2023 11:00 AM CDT [facility] Blood Peripheral blood specimen / Unknown Venipuncture / Unknown 12/09/2023 9:45 AM CDT 12/09/2023 9:55 AM CDT Narrative [facility] - 12/09/2023 11:00 AM CDT [...] Veronica OrtaMónica MARIE LAB BLOOD ORDERABL ES [facility] Unless otherwise noted, all lab tests performed by: Division of Pathology and Laboratory Medicine [address] [place] [address] * IR CT GUIDED BIOPSY RENAL (10/03/2023 10:27 AM CDT) Anatomical Region Laterality Modality Abdomen/Pelvis, Organ (liver/spleen/kidney) Computed Tomography Narrative 10/04/2023 9:03 AM CDT Table formatting from the original result was not included. Date of Procedure: 10/03/23 Attending Physician: Kumar Comer MD Tank Operator: None Pre Procedure Diagnosis: Renal mass Post [...] with Interventional Radiology required. Shazia Arriaza MD [facility] IR ORDERABLES * Pathology Biopsy Interpretation (10/03/2023 10:19 AM CDT) Submitted Clinical History Renal mass [N28.89] 10/04/2023 9:52 AM CDT [facility] Diagnosis A: Kidney, left, biopsy: RENAL CELL CARCINOMA, CLEAR CELL TYPE, ISUP/WHO NUCLEAR GRADE 1. CCG/FGT 10/04/2023 9:52 AM CDT [facility] Gross Description A: Kidney, left, left kidney: Multiple soft castillo-brown tissue cores and core fragments, less than 0.1 cm - 0.2 cm in length and up to 0.1 cm in diameter, entirely submitted in A1. ET 10/04/2023 9:52 AM CDT [facility] Biomarker Block(s) Tumor: A1 10/04/2023 9:52 AM CDT [facility] Disclaimer "Some tests reported here may have been developed and performance characteristics determined by [facility] Pathology and Laboratory Medicine. These tests have not been specifically cleared or approved by the U.S. Food and Drug Administration. If applicable, controls were reviewed and showed appropriate reactivity." 10/04/2023 9:52 AM CDT [facility] Tissue (Kidney, Left) 10/03/2023 10:19 AM CDT 10/03/2023 12:29 PM CDT Shazia Arriaza MD LAB PATHOLOGY ORDE ANA [facility] [address] [place] [address], * Prothrombin Time (10/03/2023 9:27 AM CDT) Prothrombin Time 12.6 11.9 - 14.5 second(s) 10/03/2023 9:57 AM CDT [facility] International Normalization Ratio 0.98 0.87 - 1.12 10/03/2023 9:57 AM CDT [facility] Blood Peripheral blood specimen / Unknown Venipuncture / Unknown 10/03/2023 9:27 AM CDT 10/03/2023 9:28 AM CDT Abilio Ng PA-C LAB BLOOD ORDERABL ES [facility] [address] [place] [address] * Type and Screen (10/03/2023 9:27 AM CDT) ABORh O POS 10/03/2023 9:17 AM CDT [facility] ABSC Negative 10/03/2023 9:17 AM CDT [facility] Clot Expiration 10/06/2023 23:59 10/03/2023 9:17 AM CDT [facility] Historical Record Check Complete 10/03/2023 9:17 AM CDT [facility] Blood Peripheral blood specimen / Unknown Venipuncture / Unknown 10/03/2023 9:27 AM CDT 10/03/2023 9:52 AM CDT Abilio Ng PA-C BLOOD BANK TEST OR DERABLES [facility] [address] [place] [address] * X-ray Chest 2 Views (09/19/2023 9:24 [...] 0.43 <0.90 nmol/L 09/19/2023 2:59 PM CDT [facility] Metanephr Free-Maxwell <0.20 <0.50 nmol/L 09/19/2023 2:59 PM CDT [facility] Comment: ADDITIONAL INFORMATION This test was developed and its performance characteristics determined by [facility] in a manner consistent with CLIA requirements. This test has not been cleared or approved by the U.S. Food and Drug Administration. Test Performed by: [facility] [place] [address] Felt Puller: Scot Skelton M.D. Ph.D.; CLIA# [id number] Blood Peripheral blood specimen / Unknown Venipuncture / Unknown 09/16/2023 4:24 PM CDT 09/16/2023 4:41 PM CDT Shazia Arriaza MD LAB BLOOD ORDERABL ES [facility] * Hepatitis C Virus Antibody (09/16/2023 4:24 PM CDT) Pathologist [facility] HCVAb. Non Reactive Non Reactive 09/17/2023 9:11 AM CDT [facility] Blood Peripheral blood specimen / Unknown Venipuncture / Unknown 09/16/2023 4:24 PM CDT 09/16/2023 4:41 PM CDT Narrative [facility] - 09/17/2023 9:11 AM CDT Antibody detection in the immunocompromised and immunosuppressed population may be delayed or absent entirely. Therefore serial testing, correlation with other clinical findings, and supplemental testing (if available) should be taken into consideration when interpreting the results. Shazia Arriaza MD LAB BLOOD ORDERABL ES Performing Organization Address City/[facility]/ZIP Co de Phone Number [facility] Unless otherwise noted, all lab tests performed by: Division of Pathology and Laboratory Medicine [address] [place] [id number] * Aldosterone Level (09/16/2023 4:24 PM CDT) [facility] 8.1 <=21 ng/dL 09/20/2023 1:02 AM CDT [facility] Comment: ADDITIONAL INFORMATION Reference range for patients 11 years and older is based on upright A.M. collection from subjects without sodium restrictions. This test was developed and its performance characteristics determined by [facility] in a manner consistent with CLIA requirements. This test has not been cleared or approved by the U.S. Food and Drug Administration. Test Performed by: [facility] [address] [address] Felt Puller: Scot Skelton M.D. Ph.D.; CLIA# [id number] Blood Peripheral blood specimen / Unknown Venipuncture / Unknown 09/16/2023 4:24 PM CDT 09/16/2023 4:41 PM CDT Shazia Arriaza MD LAB BLOOD ORDERABL ES Performing Organization Address City/[facility]/ZIP Co de Phone Number [facility] TIFF * Renin Activity (09/16/2023 4:24 PM CDT) [facility] Renin Activity-[place] 4.3 ng/mL/h 09/19 3:42 PM CDT [facility] Comment: REFERENCE VALUE (Peripheral vein specimen) Na-deplete, upright: Mean: 5.9 Range: 2.9-10.8 Na-replete, upright: Mean: 1.0 Range: < or =0.6-3.0 ADDITIONAL INFORMATION Testing performed by Liquid Chromatography-Tandem Mass Spectrometry (LC-MS/MS). This test was developed and its performance characteristics determined by [facility] in a manner consistent with CLIA requirements. This test has not been cleared or approved by the U.S. Food and Drug Administration. Test Performed by: [place] [address] Felt Puller: Scot Skelton M.D. Ph.D.; CLIA# [id number] Blood Peripheral blood specimen / Unknown Venipuncture / Unknown 09/16/2023 4:24 PM CDT 09/16/2023 4:41 PM CDT Shazia Arriaza MD LAB BLOOD ORDERABL ES Performing Organization Address City/[facility] Co de Phone Number [facility] * Urine Culture (09/16/2023 4:24 PM CDT) [facility] Urine Culture Normal site mirna present. Generally of low significance. Correlate with clinical data and culture history. 09/18/2023 8:31 AM CDT [facility] Urine Voided urine specimen / Unknown Non-blood Collection / Unknown 09/16/2023 4:24 PM CDT 09/16/2023 4:41 PM CDT Shazia Arriaza MD MICROBIOLOGY - GEN ERAL ORDERABLES [facility] Unless otherwise noted, all lab tests performed by: Division of Pathology and Laboratory Medicine [address] [place] [id number] * TSH (09/16/2023 4:24 PM CDT) [facility] Thyroid Stimulating Hormone 1.43 0.27 - 4.20 mcunit/mL 09/16/2023 5:23 PM CDT [facility] Blood Peripheral blood specimen / Unknown Venipuncture / Unknown 09/16/2023 4:24 PM CDT 09/16/2023 4:41 PM CDT Shazia Arriaza MD LAB BLOOD ORDERABL ES Performing Organization Address City/[facility]/ZIP Co de Phone Number [facility] [address] [place] [address] * T4 (09/16/2023 4:24 PM CDT) Pathologist [facility] Thyroxine 7.0 4.5 - 11.7 mcg/dL 09/16/2023 5:55 PM CDT [facility] Blood Peripheral blood specimen / Unknown Venipuncture / Unknown 09/16/2023 4:24 PM CDT 09/16/2023 4:41 PM CDT Shazia Arriaza MD LAB BLOOD ORDERABL ES Performing Organization Address City/[facility]/ZIP Co de Phone Number [facility] Unless otherwise noted, all lab tests performed by: Division of Pathology and Laboratory Medicine [address] [place] [id number] * Confirm ABORh (09/16/2023 4:23 PM CDT) Pathologist [facility] ABORh Confirm O POS 09/16/2023 4:15 PM CDT [facility] - TRANSFUSION SERVICES Blood Peripheral blood specimen / Unknown Venipuncture / Unknown 09/16/2023 4:23 PM CDT 09/16/2023 4:41 PM CDT Shazia Arriaza MD BLOOD BANK TEST OR DERABLES [facility] - TRANSFUSION SERVICES [facility] Transfusion [facility] [address] [facility] [id number] [place] [address] * OSI CT Abdomen and Pelvis (07/18/2023 7:40 AM DANCING MASTER) Narrative Systemgenerated, Documentation - 08/08/2023 7:40 AM CDT Study acquired at another institution. For comparison only. No MD Gimenez originated interpretation requested or available. Margoth Souza MD IMG OUTSIDE IMAGE OR DERABLES * OSI CT Brain (07/17/2023 7:40 AM DANCING MASTER) Narrative Systemgenerated, Documentation - 08/08/2023 7:40 AM CDT Study acquired at another institution. For comparison only. No MD Gimenez originated interpretation requested or available. Margoth Souza MD IMG OUTSIDE IMAGE OR DERABLES after 02/27/2023 Advance Directives * Full Code (Latest Code Status on File) Date Activated Date Inactivated Comments 01/02/2024 1:48 PM 01/03/2024 7:17 PM Care Teams Commander Internal Affairs Relationship Specialty Start Date End Date Margoth Souza MD [address] [place] [address] [email or web address] PCP - General Urology 07/30/23 Mary Jane Cassidy MD [address] [place] [phone] [email or web address] Consulting Physician Endocrinology 12/09/23 Barry He MD [address] [place] [phone] [email or web address] Consulting Physician Internal Medicine 12/23/23 Patience Hunt MD [address] [place] [phone] [email or web address] Consulting Physician Endocrinology 12/31/23
[2024-02-27 05:34] LABS: Absolute Basophils 0.1 K/uL (0-0.5); Absolute Eosinophils 0.2 K/uL (0-0.5); Absolute Lymphocytes (CBC) 1.5 K/uL (0.7-4.9); Absolute Monocytes 0.7 K/uL (0.1-1.3); Absolute Neutrophil 4.8 K/uL (1.8-8.0); Basophils % 1.4 % (0-1.3); Eosinophils % 3.3 % (0-4.4); Hematocrit 38.8 % (39.6-49.0); Hemoglobin 12.8 g/dL (13.6-17.9); Lymphocytes % 20.6 % (15.3-44.8); MCH 25.6 pg (27.0-35.0); MCHC 32.9 g/dL (32.0-36.0); MPV 6.9 fL (7.6-11.3); Monocytes % 9.1 % (3.3-12.3); Neutrophils % 65.6 % (41.7-73.7); Nucleated Red Blood Cells % 0.1 % (0-0); Platelets 389 thou/uL (152-406); RBC Red Blood Cell Count 4.97 M/uL (4.33-5.43); Red Cell Distribution Width 16.1 % (12.1-15.2)
[2024-02-27 05:35] LABS: PT Prothrombin Time 12.1 SECONDS (9.4-12.5); Protime INR 1.08
[2024-02-27 05:51] LABS: ALT/SGPT 15 U/L (16-61); AST/SGOT 13 U/L (15-37); Albumin 3.6 g/dL (3.4-5.0); Albumin/Globulin Ratio 0.7 (1.1-1.8); Alkaline Phosphatase 105 U/L (45-117); Anion Gap 9.8 mEq/L (5.0-15.0); BUN Blood Urea Nitrogen 22 mg/dL (7-18); Bicarbonate 27 mEq/L (21-32); Bilirubin Direct < 0.2 mg/dL (0-0.2); Bilirubin Indirect, Calculated 0.2 mg/dL (0.2-0.8); Bilirubin Total 0.4 mg/dL (0.2-1.0); Globulin 4.9 g/dL (2.3-3.5); Glomerular Filtration Rate 63 ml/min (=/>90); Glucose Level 172 mg/dL (74-106); NT PRO-BNP 1760 pg/mL (<125); Potassium 3.8 mEq/L (3.5-5.1); Protein, Total 8.5 g/dL (6.4-8.2); Sodium Level 137 mEq/L (136-145); Troponin High Sensitivity 27.3 pg/mL (<58.9)
[2024-02-27] MEDS ORDERED: HYDRALAZINE HCL 20 MG/ML VIAL ONE (05:57)
[2024-02-27] MEDS ORDERED: ONDANSETRON 4 MG/2 ML VIAL ONE (05:57)
[2024-02-27] MEDS ORDERED: DIAZEPAM 5 MG TABLET ONE (05:58)
--- NOTE | 2024-02-27 06:31 | RAD REPORT ---
CLINICAL HISTORY: Chest pain. COMPARISON: XR Chest 01/20/2024. TECHNIQUE: XR CHEST 1 VIEW 02/27/2024 5:03 AM CDT FINDINGS: The heart is borderline in size. Sternotomy was performed. Lungs are clear without consolidation, ate lectasis, mass or edema. There is a small left pleural effusion. There is no pneumothorax. There are no acute osseous findings. IMPRESSION: No significant change. Electronically signed by: Miguel Angel Pinto MD 02/27/2024 05:49 AM CDT RP Due to temporary technical issues with the [employer] reporting system, reports are being brandon d by the in-house radiologist without review as a courtesy to ensure prompt reporting the interpreting radiologist is fully responsible for the content of the report. Transcribed Date/Time: 02/27/2024 6:31 AM
--- NOTE | 2024-02-27 07:23 | EDPHYS ---
Physician Documentation [facility] Name: Zeke Mackay Sr Age: 59 yrs Sex: Male : 1965 Arrival Date: 02/27/2024 Time: 05:00 Bed 15 Private MD: ED Physician Jag Horvath HPI: 02/26 05:03 This 59 yrs old Male presents to ER via Unassigned with complaints of sp4 Shortness Of Breath. 06:49 59-year-old male with past medical history of multivessel CAD, 5 vessel CABG, sp4 58-year-old male with also history of diabetes renal cell carcinoma hypertension and CHF presents with acute onset of shortness of breath and diaphoresis starting this morning. Patient takes Plavix, aspirin, metformin, dapagliflozin, Soliqua insulin,. 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 - Infectious Disease History:: Denies. - Social history:: Smoking status: Patient denies any tobacco usage or history of. Patient uses street drugs, marijuana. - Family history:: not pertinent. ROS: 06:49 Constitutional: Negative for fever, chills, and weight loss, Positive shortness of sp4 breath, positive diaphoresis 06:49 All other systems are negative, Exam: 06:49 Constitutional: This is a well developed, well nourished patient who is awake, alert, sp4 and in no acute distress. Head/Face: Normocephalic, atraumatic. Eyes: Pupils equal round and reactive to light, extra-ocular motions intact. Lids and lashes normal. Conjunctiva and sclera are not injected. Cornea within normal limits. Periorbital areas with no swelling, redness, or edema. ENT: Nares patent. No nasal discharge, no septal abnormalities noted. Tympanic membranes are normal and external auditory canals are clear. Oropharynx with no redness, swelling, or masses, exudates, or evidence of obstruction, uvula midline. Mucous membranes moist. Neck: Trachea midline, no thyromegaly or masses palpated, and no cervical lymphadenopathy. Supple, full range of motion without nuchal rigidity, or vertebral point tenderness. Chest/axilla: Normal chest wall appearance and motion. Nontender with no deformity. No lesions are appreciated. Cardiovascular: Regular rate and rhythm with a normal S1 and S2. No gallops, murmurs, or rubs. Normal PMI, no JVD. No pulse deficits. Respiratory: Lungs have equal breath sounds bilaterally, clear to auscultation and percussion. No rales, rhonchi or wheezes noted. No increased work of breathing, no retractions or nasal flaring. Abdomen/GI: Soft, with normal bowel sounds. No distension or tympany. No guarding or rebound. No evidence of tenderness throughout. Back: No spinal tenderness. No costovertebral tenderness. Skin: Warm, dry with normal turgor. Normal color with no rashes, no lesions, and no evidence of cellulitis. MS/ Extremity: Pulses equal, no cyanosis. Neurovascular intact. Full, normal range of motion. Neuro: Awake and alert, GCS 15, oriented to person, place, time, and situation. Cranial nerves II-XII grossly intact. Motor strength 5/5 in all extremities. Sensory grossly intact. Psych: Awake, alert, with orientation to person, place and time. Behavior, mood, and affect are within normal limits 07:06 ECG was reviewed by the Attending Physician. EKG at 0 514 normal sinus rhythm rate sp4 67, prolonged QT otherwise normal Vital Signs: 05:05 BP 216 / 92; Pulse 66; Resp 20 S; Temp 97.9; Pulse Ox 98% on R/A; Weight 90.72 kg; br2 Height 6 ft. 2 in. ; Pain 0/10; 06:00 BP 149 / 69; Pulse 74; Resp 18 S; Pulse Ox 97% on R/A; br2 07:30 BP 153 / 70; Pulse 72; Resp 16; Pulse Ox 100% ; ko1 05:05 Body Mass Index 25.68 (90.72 kg, 187.96 cm) br2 05:05 Pain Scale: Adult br2 [place] Coma Score: 06:49 Eye Response: spontaneous(4). Motor Response: obeys commands(6). Verbal Response: sp4 oriented(5). Total: 15. MDM: 05:06 Patient medically screened. sp4 07:06 Differential diagnosis: Bronchitis CHF exacerbation, Chronic Obstructive Pulmonary sp4 Disease Myocardial Infarction pneumonia, Psychogenic. Data reviewed: vital signs, nurses notes, old medical records, lab test result(s), EKG, radiologic studies, plain films. 02/26 05:03 Order name: Basic Metabolic Panel; Complete Time: 06:39 sp4 02/26 05:03 Order name: CBC with Diff; Complete Time: 05:46 4 02/26 05:03 Order name: LFT's; Complete Time: 06:39 4 02/26 05:03 Order name: Magnesium; Complete Time: 06:39 sp4 02/26 05:03 Order name: NT PRO-BNP; Complete Time: 06:39 sp4 02/26 05:03 Order name: PT-INR; Complete Time: 05:46 4 02/26 05:03 Order name: Troponin HS; Complete Time: 06:39 4 02/26 06:41 Order name: Troponin High Sensitivity; Complete Time: 07:18 4 02/26 05:03 Order name: XRAY Chest (1 view); Complete Time: 07:16 02/26 05:03 Order name: Cardiac monitoring; Complete Time: 05:19 4 02/26 05:03 Order name: EKG - Nurse/Tech; Complete Time: 05:19 02/26 05:03 Order name: IV Saline Lock; Complete Time: 06:03 02/26 05:03 Order name: Labs collected and sent; Complete Time: 06:03 4 02/26 05:03 Order name: O2 Per Protocol; Complete Time: 06:03 02/26 05:03 Order name: O2 Sat Monitoring; Complete Time: 06:03 4 EC:06 Rate is 67 beats/min. Rhythm is regular, Normal Sinus Rhythm. QRS [place] is Normal. [place] sp4 interval is normal. QRS interval is normal. QT interval is prolonged. No Q waves. T waves are Normal. No ST changes noted. Clinical impression: No evidence of ischemia. Interpreted by me. Reviewed by me. Administered Medications: 06:03 Drug: hydrALAZINE IVP 20 mg IVP once Route: IVP; Site: right antecubital; lg3 07:00 Follow up: Response: No adverse reaction br2 06:03 Drug: Diazepam PO 5 mg PO once Route: PO; lg3 07:00 Follow up: Response: No adverse reaction br2 06:03 Drug: Ondansetron IVP 4 mg IVP once; over 2 minutes Route: IVP; Site: right antecubital;lg3 07:00 Follow up: Response: No adverse reaction br2 07:20 Drug: Imdur PO 30 mg PO once Route: PO; ko1 07:30 Follow up: Response: No adverse reaction; Medication administered at discharge. ko1 Disposition Summary: 02/27/24 07:23 Discharge Ordered Problem: new sp4 Symptoms: have improved sp4 Condition: Stable sp4 Diagnosis - Essential (primary) hypertension sp4 - Acute Hypertensive Urgency sp4 Followup: sp4 - With: Geovani Lerma MD - When: 7 - 10 days - Reason: Recheck today's complaints Discharge Instructions: - Discharge Summary Sheet sp4 - Hypertension, Adult, [id number] sp4 Forms: - Patient Portal Instructions sp4 Prescriptions: - isosorbide mononitrate 30 mg Oral Tablet, Extended Release 24 hr - take 1 tablet ORAL route every morning; 30 tablet; Refills: 0, Product sp4 Selection Permitted Signatures: Dispatcher [employer] EDDiana Finch RN RN lg3 Autumn Mary RN RN ko1 Jag Horvath MD MD sp4 Courtney Dubose RN RN br2 Corrections: (The following items were deleted from the chart) 05:04 05:04 Chest Single View+[email or web address] ordered. EDMS EDMS
--- NOTE | 2024-02-27 07:23 | ER ---
Nurse's Notes [facility] Name: Zeke Mackay Sr Age: 59 yrs Sex: Male : 1965 Arrival Date: 02/27/2024 Time: 05:00 Bed 15 Private MD: Diagnosis: Essential (primary) hypertension;Acute Hypertensive Urgency Presentation: 02/26 05:05 Chief complaint: Patient states: PT STATES HE WAS ASLEEP AND HAD A SUDDEN ONSET OF SOB. br2 DENIES ANY CP PAIN. Coronavirus screen: Vaccine status: Patient reports being unvaccinated. Client denies travel out of the [place] in the last 14 days. Ebola Screen: Patient negative for fever greater than or equal to 101.5 degrees Fahrenheit, and additional compatible Ebola Virus Disease symptoms Patient denies exposure to infectious person. Patient denies travel to an Ebola-affected area in the 21 days before illness onset. 05:05 Method Of Arrival: Wheelchair br2 05:05 Initial Sepsis Screen: Does the patient meet any 2 criteria? No. Patient's initial br2 sepsis screen is negative. Does the patient have a suspected source of infection? No. Patient's initial sepsis screen is negative. Risk Assessment: Do you want to hurt yourself or someone else? Patient reports no desire to harm self or others. Onset of symptoms was February 27, 2024 at 04:00. 05:05 Acuity: RICKEY 3 br2 Triage Assessment: 05:31 General: Appears in no apparent distress. comfortable, Behavior is calm, cooperative. br2 Pain: Denies pain. Cardiovascular: Denies chest pain. Respiratory: Reports shortness of breath at rest on exertion Onset: The symptoms/episode began/occurred suddenly, the patient has mild shortness of breath. 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 - Infectious Disease History:: Denies. - Social history:: Smoking status: Patient denies any tobacco usage or history of. Patient uses street drugs, marijuana. - Family history:: not pertinent. Screenin:00 [facility] ED Fall Risk Assessment (Adult) History of falling in the last 3 months, br2 including since admission No falls in past 3 months (0 pts) Confusion or Disorientation No (0 pts) Intoxicated or Sedated No (0 pts) Impaired Gait No (0 pts) Mobility Assist Device Used No (0 pt) Altered Elimination No (0 pt) Score/Fall Risk Level 0 - 2 = Low Risk. Abuse screen: Denies threats or abuse. Denies injuries from another. Nutritional screening: No deficits noted. Tuberculosis screening: No symptoms or risk factors identified. Assessment: 05:00 Reassessment: SEE TRIAGE ASSESSMENT. Cardiovascular: Rhythm is regular. Respiratory: br2 Airway is patent Respiratory effort is even, unlabored, Respiratory pattern is regular, Breath sounds are clear bilaterally. 06:00 Reassessment: Patient and/or family updated on plan of care and expected duration. Pain br2 level reassessed. Patient is alert, oriented x 3, equal unlabored respirations, skin warm/dry/pink. Patient states feeling better. Patient states symptoms have improved. 07:11 Reassessment: faxed to pharmacy for Imdur. ko1 Vital Signs: 05:05 BP 216 / 92; Pulse 66; Resp 20 S; Temp 97.9; Pulse Ox 98% on R/A; Weight 90.72 kg; br2 Height 6 ft. 2 in. ; Pain 0/10; 06:00 BP 149 / 69; Pulse 74; Resp 18 S; Pulse Ox 97% on R/A; br2 07:30 BP 153 / 70; Pulse 72; Resp 16; Pulse Ox 100% ; ko1 05:05 Body Mass Index 25.68 (90.72 kg, 187.96 cm) br2 05:05 Pain Scale: Adult br2 [place] Coma Score: 06:49 Eye Response: spontaneous(4). Motor Response: obeys commands(6). Verbal Response: sp4 oriented(5). Total: 15. ED Course: 05:00 Inserted saline lock: 20 gauge in right antecubital area, using aseptic technique. br2 Blood collected. Flushed with 10 mL NS. 05:00 Patient has correct armband on for positive identification. Placed in gown. Bed in low br2 position. Call light in reach. Side rails up X 1. Provided Education on: PLAN OF CARE. 05:01 Patient arrived in ED. [email or web address] 05:02 Jag Horvath MD is Attending Physician. sp4 05:19 EKG done, by ED staff, reviewed by Jag Horvath MD. oe 05:28 Courtney Dubose, RN is Primary Nurse. br2 05:31 Triage completed. br2 05:32 XRAY Chest (1 view) In Process Unspecified. EDMS 07:04 Troponin High Sensitivity Sent. oe 07:22 Geovani Lerma MD is Referral Physician. sp4 07:30 No provider procedures requiring assistance completed. IV discontinued, intact, ko1 bleeding controlled, No redness/swelling at site. Pressure dressing applied. 07:32 Patient notified of wait time. ko1 Administered Medications: 06:03 Drug: hydrALAZINE IVP 20 mg IVP once Route: IVP; Site: right antecubital; lg3 07:00 Follow up: Response: No adverse reaction br2 06:03 Drug: Diazepam PO 5 mg PO once Route: PO; lg3 07:00 Follow up: Response: No adverse reaction br2 06:03 Drug: Ondansetron IVP 4 mg IVP once; over 2 minutes Route: IVP; Site: right antecubital;lg3 07:00 Follow up: Response: No adverse reaction br2 07:20 Drug: Imdur PO 30 mg PO once Route: PO; ko1 07:30 Follow up: Response: No adverse reaction; Medication administered at discharge. ko1 Medication: 06:00 VIS not applicable for this client. br2 Outcome: 07:23 Discharge ordered by . sp4 07:30 Discharged to home ambulatory, ko1 07:30 Condition: stable 07:30 Discharge instructions given to patient, Instructed on discharge instructions, follow up and referral plans. medication usage, Demonstrated understanding of instructions, follow-up care, medications, Prescriptions given X 1, 07:32 Patient left the ED. ko1 Signatures: Dispatcher [employer] EDMS Geoffrey Jaramillo Lacie, RN RN lg3 Adriana Christie jj6 Autumn Mary RN RN ko1 Jag Horvath MD MD sp4 Courtney Dubose, ARTURO RN br2
[2024-02-27] MEDS ORDERED: ISOSORBIDE MONO SR 30 MG TAB PO SCH (08:00)
[2024-02-27 08:21] VITALS: TEMP 97.9
[2024-02-27 08:24] VITALS: BP 153/70; O2SAT 100
--- NOTE | 2024-02-27 16:52 | EKG ---
Test Date: 2024-02-27 Test Time: 05:14:43 [employer] Worker: KATHRYN MEASUREMENT RESULTS: Intervals: Rate: 67 ID: [id number] QRSD: 82 QT: 454 QTc: 479 [place]: P: 58 ID: [id number] QRS: 69 T: 150 INTERPRETIVE STATEMENTS: Normal sinus rhythm Nonspecific ST and T wave abnormality Prolonged QT Abnormal ECG Compared to ECG 01/20/2024 21:20:38 ST (T wave) deviation now present Prolonged QT interval now present Atrial premature complex(es) no longer present T-wave abnormality no longer present Possible ischemia no longer present Electronically Signed On 02-27-24 16:50:06 CDT by Geovani Lerma
== END 2024-02-27 07:32 | disposition home or self-care (01) ==
LOC: ER 05:00
DX: I16.0 Hypertensive urgency (principal); I10 Essential (primary) hypertension; I50.9 Heart failure, unspecified; E11.9 Type 2 diabetes mellitus without complications; Z95.1 Presence of aortocoronary bypass graft; Z79.4 Long term (current) use of insulin; Z79.01 Long term (current) use of anticoagulants; Z79.82 Long term (current) use of aspirin
CPT/HCPCS: 93005; 85025; 80048; 36415; 83735; 85610; 80076; 84484 ×2; 83880; 71045; J0360; J2405

== ENCOUNTER 2024-02-27 07:56 | Inpatient (IN) | payer OTHER ==
--- OUTSIDE RECORDS SUMMARY | 2024-02-27 08:00 | XMS REPORT | Clinical Summary ---
Author Name Unknown Organization [facility] Address [address] [place] [address] Care Team Providers Care Squirrel Man Name Role Phone Margoth Souza MD Primary Care Provider [phone] Mary Jane Cassidy MD Unavailable [phone] Barry He MD Unavailable Patience Hunt MD [...] than 9% indicating poor diabetic control 01/02/2024 [facility] current use of systemic steroid 2023 Adverse [...] PM CDT Telemedicine [facility] [address] [facility], 7th [place] [address] Margoth Souza MD Renal mass (Primary Dx) 01/02/2024 7:15 AM CDT Ancillary Procedure MAIN OR [address] [place] [address] Margoth Souza MD 01/02/2024 7:00 AM CDT - 01/02/2024 11:40 AM CDT Surgery MAIN OR [address] [place] [address] Margoth Souza MD ROBOTIC ASSISTED PARTIAL NEPHRECTOMY 01/02/2024 6:58 AM CDT Anesthesia Event MAIN OR [address] [place] [address] Alonzo Liu MD Majekodumi, Jessy, PAXTON 01/02/2024 5:04 AM CDT - 01/03/2024 5:05 PM CDT Hospital Encounter MAIN P09B [address] [place] [address] Margoth Souza MD Renal mass (Primary Dx) Discharge Disposition: Home 01/02/2024 Travel 12/31/2023 1:04 PM CDT - 12/31/2023 11:59 PM CDT Hospital Encounter Main CT IMAGING [address] [place] [address], 3rd [place] [address] Margoth Souza MD Renal mass Discharge Disposition: Home 12/31/2023 8:00 AM CDT Consult Endocrine Center [address] [place] [address], 6th Floor Elevator [place] [phone] Nakia Kirby APRN Khan, Sonya, MD Type 2 diabetes mellitus with hyperglycemia [E11.65] (Primary Dx); Pre-surgery evaluation 12/30/2023 9:30 AM CDT Office Visit [facility] [address] [place] [address], 7th [place] [address] Margoth Souza MD Renal mass 12/30/2023 Travel 12/30/2023 Telephone Endocrine Center [address] [place] [address], 6th [place] [address] Winnie Archibald, RN Appointment (Cannot get internet-phone broke) 12/30/2023 Orders Only [facility] [address] [place] [address], 7th [place] [address] Roberto Poole PA Renal mass (Primary Dx) 12/29/2023 Orders Only Endocrine Center [address] [place] [address], [address] [place] [address] Veronica Del Castillo APRN 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); Endocrine/metabolic screening; Renal cell carcinoma <Left side> 12/25/2023 8:36 AM CDT Anesthesia Event [facility] [address] [place] [address] Lien Antonio RN 12/23/2023 10:30 AM CDT Consult Perioperative Evaluation and Management [address] [place] [address] Margoth Souza MD Oh, Jeong, MD Encounter for other preprocedural examination (Primary Dx); Renal mass; Hyperlipidemia, not otherwise specified 12/23/2023 9:00 AM CDT POEM Appointments [facility] [address] [place] [address] Margoth Souza MD Pre-surgery evaluation (Primary Dx) 12/23/2023 8:45 AM CDT - 12/23/2023 11:59 PM CDT Hospital Encounter [facility] [address] [place] [address] Margoth Souza MD Renal mass Discharge Disposition: Home 12/23/2023 Travel 12/09/2023 9:33 AM CDT - 12/09/2023 11:59 PM CDT Hospital Encounter [facility] [address] [place] [address] Veronica Del Castillo APRN 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; Endocrine/metabolic screening Discharge Disposition: Home 12/09/2023 8:30 AM CDT Consult Endocrine Center [address] [place] [address] Mary Jane Cassidy MD 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); Endocrine/metabolic screening; Renal cell carcinoma <Left side> 12/09/2023 Travel 10/23/2023 Orders Only [facility] [address] [place] [address], [facility] [place] [place] [address] Roberto Poole PA Renal mass (Primary Dx); Adrenal mass 10/03/2023 9:30 AM CDT - 10/03/2023 11:59 PM CDT Hospital Encounter Interventional Radiology [address] [place] [address], [facility] [place] [address] Shazia Arriaza MD McRae, Stephen, MD Renal mass Discharge Disposition: Home 10/03/2023 8:30 AM CDT - 10/03/2023 9:29 AM CDT Hospital Encounter [facility] [address] [place] [address] Margoth Souza MD Renal mass Discharge Disposition: Home 10/03/2023 Travel 10/02/2023 8:24 AM CDT - 10/02/2023 11:59 PM CDT Hospital Encounter Interventional Radiology [address] [place] [address] Margoth Souza MD Ho, ConradoRenata Horn, PAKori Encounter for other preprocedural examination (Primary Dx); Renal mass; 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 Discharge Disposition: Home 10/02/2023 Travel 09/24/2023 7:46 AM CDT - 09/24/2023 11:59 PM CDT Hospital Encounter [facility] [address] [place] [address] Roberto Poole PA Adrenal mass Discharge Disposition: Home 09/20/2023 Orders Only [facility] [address] [place] [address], [facility] [place] [place] [address] Roberto Poole PA Adrenal mass (Primary Dx) 09/19/2023 11:45 AM CDT Ancillary Procedure X-Ray Outpatient Center [address] [place] [address], [address] [place], [place] [address] [address] Shazia Arriaza MD Renal mass 09/19/2023 9:20 AM CDT - 09/19/2023 11:59 PM CDT Hospital Encounter [facility] [address] [place] [address] Shazia Arriaza MD Adenoma, NOS of adrenal gland, NOS <Left> Discharge Disposition: Home 09/19/2023 Orders Only Interventional Radiology [address] [place] [address], 4th [place] [address] Abilio Ng, EVANGELINA Renal mass (Primary Dx) 09/19/2023 Travel 09/19/2023 Telephone MD [facility] [address] [place] [address] Barbara Rees MA 09/16/2023 4:00 PM CDT - 09/16/2023 11:59 PM CDT Hospital Encounter [facility] [address] [place] [address] Shazia Arriaza MD Renal mass; Adrenal mass Discharge Disposition: Home 09/16/2023 2:00 PM CDT Office Visit [facility] [address] [place] [address], 7th [place] [address] Margoth Souza MD Renal mass (Primary Dx); Adrenal mass; Adenoma, NOS of adrenal gland, NOS <Left>; 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 09/16/2023 12:30 PM CDT NPR MDA PATIENT ACCESS 09/16/2023 Travel 08/08/2023 8:00 PM CDT Ancillary Procedure Image Library [address] [place] [address] Margoth Souza MD Cancer 08/08/2023 6:40 AM CDT Ancillary Procedure Image [facility] [address] [place] [address] Margoth Souza MD Cancer after 02/27/2023 Surgical History Surgery Date Site/Laterality Comments TOE AMPUTATION x2, 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, 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 APPENDECTOMY 05/20/1973 - 05/19/1974 Open WRIST SURGERY Left HAND SURGERY Right HIP ARTHRODESIS W/ ILIAC CREST BONE GRAFT Bilateral For hand surgeries CERVICAL SPINE SURGERY C3-6 fusion, x2 HI LAPAROSCOPY SURG PARTIAL NEPHRECTOMY 01/02/2024 Abdomen/Left Procedure: ROBOTIC ASSISTED PARTIAL NEPHRECTOMY; Surgeon: Margoth Souza MD; Location: MAIN OR; Service: UROLOGY HI ULTRASONIC GUIDANCE INTRAOPERATIVE 01/02/2024 Left Procedure: INTROPERATIVE [...] AM CDT Appointment [facility] [address] [place] [address] Margoth Souza MD [address] [place] [address] [email or web address] 02/05/2025 11:15 AM CDT Ancillary Procedure X-Ray Outpatient Center [address] [facility], 7th [place] [address] Margoth Souza MD [facility] [place] [address] [email or web address] 02/05/2025 12:20 PM CDT Ancillary Procedure CT Imaging [address] [facility], [facility] [place] [address] Margoth Souza MD [address] [place] [address] [email or web address] 02/08/2025 2:30 PM CDT Telemedicine [facility] [address] [place] [address], [address] [place] [address] Margoth Souza MD [address] [place] [address] [email or web address] Health Maintenance Due Date Last [...] INTRAOPERATIVE US STAT 01/02/2024 7:13 AM CDT HI ULTRASONIC GUIDANCE INTRAOPERATIVE 01/02/2024 6:08 AM CDT Renal mass Special Needs [email or web address]:Please collect and send tissue to pathology window with appropriate label. HI LAPAROSCOPY SURG PARTIAL NEPHRECTOMY 01/02/2024 6:08 AM CDT Renal mass Special Needs [email or web address]:Please collect and send tissue to pathology window [...] ABDOMEN AND PELVIS Routine 2023 7:40 AM [employer] Cancer OSI CT BRAIN Routine 07/17/2023 7:40 AM [employer] Cancer after 02/27/2023 Results * (ABNORMAL) Basic Metabolic Panel- Total Calcium (01/03/2024 2:59 PM CDT) Only the most recent of7 resultswithin the time period is included. eGFR 71 >=60 mL/min/1. 73 sq. m 01/03/2024 3:44 PM CDT [facility] Comment: The eGFRcr is calculated [...] - 10.2 mg/dL 01/03/2024 3:44 PM CDT [facility] Sodium Level 139 136 - 145 mmol/L 01/03/2024 3:44 PM CDT [facility] Potassium Level 3.9 3.4 - 4.5 mmol/L 01/03/2024 3:44 PM CDT [facility] Chloride 103 98 - 107 mmol/L 01/03/2024 3:44 PM CDT [facility] CO2 28 22 - 29 mmol/L 01/03/2024 3:44 PM CDT [facility] Anion Gap 8 4 - 14 mmol/L 01/03/2024 3:44 PM CDT [facility] Creatinine 1.18(H) 0.67 - 1.17 mg/dL 01/03/2024 3:44 PM CDT [facility] BUN 15 6 - 23 mg/dL 01/03/2024 3:44 PM CDT [facility] Glucose Level 137(H) 70 - 99 mg/dL 01/03/2024 3:44 PM CDT [facility] Comment: Effective 12/14/15, the glucose reference intervals have been updated based on [place] Diabetes Association guidelines (Standards of Medical Care [...] Alicia Mcmanus APRN LAB BLOOD ORDERABLE S [facility] Unless otherwise noted, all lab tests performed by: Division of Pathology and Laboratory Medicine [address] [place] [id number] * POC Glucose Screen - Fingerstick (01/03/2024 11:19 AM CDT) Only the most recent of15 resultswithin the time period is included. Glucose Screen 70 70 - 99 mg/dL 01/03/2024 11:20 AM CDT [facility] POC Sample Type Capillary 01/03/2024 11:20 AM CDT [facility] Blood 01/03/2024 11:1 9 AM CDT 01/03/2024 11:20 AM CDT Narrative [facility] - 01/03/2024 11:20 AM CDT Capillary [...] Souza MD POCT ORDERABLES - DE VICE [facility] Unless otherwise noted, all lab tests performed by: Division of Pathology and Laboratory Medicine [address] [place] [id number] * Zinc Transporter 8 Ab (01/03/2024 4:22 AM CDT) Zinc T8 AB <15.0 <15.0 U/mL 01/15/2024 11:18 AM CDT [facility] Comment: ADDITIONAL INFORMATION This test has been modified from the reconstructive dentist's instructions. Its performance characteristics were determined by [facility] in a manner consistent with CLIA requirements. This test has not been cleared or approved by the U.S. Food and Drug Administration. Test Performed by: [place] [address] Universal Winding Machine Operator: Mary Jane Topete Ph.D.; CLIA# [id number] Blood Peripheral blood specimen / Unknown Venipuncture / Unknown 01/03/2024 4:22 AM CDT 01/03/2024 4:55 AM CDT Alicia Mcmanus APRN LAB BLOOD ORDERABLE S [facility] * Islet Antigen 2 (IA-2) Antibody (01/03/2024 4:22 AM CDT) Pathologist [facility] IA-2 Antibody 0.00 <=0.02 nmol/L 01/07/2024 12:20 AM CDT [facility] Comment: ADDITIONAL INFORMATION This test was developed and its performance characteristics determined by [facility] in a manner consistent with CLIA requirements. This test has not been cleared or approved by the U.S. Food and Drug Administration. Test Performed by: [place] [address] Universal Winding Machine Operator: Mary Jane Topete Ph.D.; CLIA# [id number] Blood Peripheral blood specimen / Unknown Venipuncture / Unknown 01/03/2024 4:22 AM CDT 01/03/2024 4:55 AM CDT Alicia Mcmanus APRN LAB BLOOD ORDERABLE S Performing Organization Address [facility] de Phone Number [facility] * GREG Ab Assay (01/03/2024 4:22 AM CDT) GAD65 Ab-Baggs 0.00 <=0.02 nmol/L 01/07/2024 12:01 AM CDT [facility] Comment: ADDITIONAL INFORMATION This test was developed and its performance characteristics determined by [facility] in a manner consistent with CLIA requirements. This test has not been cleared or approved by the U.S. Food and Drug Administration. Test Performed by: [place] [address] Universal Winding Machine Operator: Mary Jane Topete Ph.D.; CLIA# [id number] Blood Peripheral blood specimen / Unknown Venipuncture / Unknown 01/03/2024 4:22 AM CDT 01/03/2024 4:55 AM CDT Alicia Mcmanus APRN LAB BLOOD ORDERABLE S Performing Organization Address [facility] de Phone Number [facility] * Insulin Ab (01/03/2024 4:22 AM CDT) Insulin Ab-Baggs 0.00 0.00 - 0.02 nmol/L 01/06/2024 5:14 PM CDT [facility] Comment: ADDITIONAL INFORMATION This test was developed and its performance characteristics determined by [facility] in a manner consistent with CLIA requirements. This test has not been cleared or approved by the U.S. Food and Drug Administration. Test Performed by: [facility] [address] [address] Universal Winding Machine Operator: Mary Jane Topete Ph.D.; CLIA# [id number] Blood Peripheral blood specimen / Unknown Venipuncture / Unknown 01/03/2024 4:22 AM CDT 01/03/2024 4:55 AM CDT Alicia Mcmanus APRN LAB BLOOD ORDERABLE S [facility] * C Peptide (01/03/2024 4:22 AM CDT) Pathologist [facility] C-Peptide 2.12 1.10 - 4.40 ng/mL 01/03/2024 5:48 AM CDT [facility] Blood Peripheral blood specimen / Unknown Venipuncture / Unknown 01/03/2024 4:22 AM CDT 01/03/2024 4:55 AM CDT Alicia Mcmanus APRN LAB BLOOD ORDERABLE S [facility] Unless otherwise noted, all lab tests performed by: Division of Pathology and Laboratory Medicine [address] [place] [id number] * (ABNORMAL) Hemogram (01/02/2024 7:20 PM CDT) White Blood Cell 13.8(H) 4.1 - 10.5 K/uL 01/02/2024 7:33 PM CDT [facility] Red Blood Cell 4.74 4.30 - 6.04 M/uL 01/02/2024 7:33 PM CDT [facility] Hemoglobin 12.2(L) 13.3 - 17.4 g/dL 01/02/2024 7:33 PM CDT [facility] Hematocrit 38.6(L) 39.5 - 51.8 % 01/02/2024 7:33 PM CDT [facility] Mean Cell Volume 81(L) 82 - 99 fL 01/02/2024 7:33 PM CDT [facility] Mean Cell Hemoglobin 25.7(L) 26.6 - 33.2 pg 01/02/2024 7:33 PM CDT [facility] Mean Cell Hemoglobin Concentration 31.6 31.1 - 35.2 g/dL 01/02/2024 7:33 PM CDT [facility] RDW-SD 39.1 37.5 - 49.7 fL 01/02/2024 7:33 PM CDT [facility] Red Cell Diameter Width 13.1 11.6 - 15.5 % 01/02/2024 7:33 PM CDT [facility] Platelet 291 160 - 397 K/uL 01/02/2024 7:33 PM CDT [facility] Mean Platelet Volume 9.7 9.1 - 12.6 fL 01/02/2024 7:33 PM CDT [facility] INRBC 0.0 0.0 - 0.1 /100 WBC 01/02/2024 7:33 PM CDT [facility] Comment: The INRBC (instrument NRBC) value [...] CDT Arianocent Linda PRICE LAB BLOOD ORDERABLES [facility] Unless otherwise noted, all lab tests performed by: Division of Pathology and Laboratory Medicine [address] [place] [address] * (ABNORMAL) Beta Hydroxy Quant (01/02/2024 7:20 PM CDT) Only the most recent of2 resultswithin the time period is included. Beta-Hydroxybuty rate 0.85(H) 0.02 - 0.27 mmol/L 01/02/2024 8:01 PM CDT [facility] Is patient fasting? No 01/02/2024 8:01 PM CDT [facility] Comment:A fasting specimen i s recommended and results obtained from non-fasting specimens should be interpreted with caution using reference ranges based on fasting status and in conjunction with clinical context. Blood Peripheral blood specimen / Unknown Venipuncture / Unknown 01/02/2024 7:20 PM CDT 01/02/2024 7:24 PM CDT Narrative [facility] - 01/02/2024 8:01 PM CDT Reference range based on fasting. Alicia Mcmanus APRN LAB BLOOD ORDERABLE S [facility] Unless otherwise noted, all lab tests performed by: Division of Pathology and Laboratory Medicine [address] [place] [id number] * (ABNORMAL) .CBC (01/02/2024 12:19 PM CDT) Only the most recent of3 resultswithin the time period is included. White Blood Cell 11.6(H) 4.1 - 10.5 K/uL 01/02/2024 12:39 PM CDT [facility] Red Blood Cell 4.71 4.30 - 6.04 M/uL 01/02/2024 12:39 PM CDT [facility] Hemoglobin 12.4(L) 13.3 - 17.4 g/dL 01/02/2024 12:39 PM CDT [facility] Hematocrit 38.1(L) 39.5 - 51.8 % 01/02/2024 12:39 PM CDT [facility] Mean Cell Volume 81(L) 82 - 99 fL 01/02/2024 12:39 PM CDT [facility] Mean Cell Hemoglobin 26.3(L) 26.6 - 33.2 pg 01/02/2024 12:39 PM CDT [facility] Mean Cell Hemoglobin Concentration 32.5 31.1 - 35.2 g/dL 01/02/2024 12:39 PM CDT [facility] RDW-SD 39.0 37.5 - 49.7 fL 01/02/2024 12:39 PM CDT [facility] Red Cell Diameter Width 13.3 11.6 - 15.5 % 01/02/2024 12:39 PM CDT [facility] Platelet 305 160 - 397 K/uL 01/02/2024 12:39 PM CDT [facility] Mean Platelet Volume 9.7 9.1 - 12.6 fL 01/02/2024 12:39 PM CDT [facility] INRBC 0.0 0.0 - 0.1 /100 WBC 01/02/2024 12:39 PM CDT [facility] Comment: The INRBC (instrument NRBC) value reflects the enumeration of nucleated red blood cells contained in a 200uL sample of whole blood analyzed by the instrument. This value may differ from the NRBC value reported in a manual differential, which is based on a 100 cell differential. Neutrophil % 90.6(H) 43.2 - 72.7 % 01/02/2024 12:39 PM CDT [facility] Lymphocyte % 6.8(L) 16.8 - 46.2 % 01/02/2024 12:39 PM CDT [facility] Monocyte % 1.9(L) 5.1 - 12.5 % 01/02/2024 12:39 PM CDT [facility] Eosinophil % 0.1(L) 0.4 - 6.3 % 01/02/2024 12:39 PM CDT [facility] Basophil % 0.3 0.2 - 1.4 % 01/02/2024 12:39 PM CDT [facility] IGRE % 0.3 0.1 - 1.5 % 01/02/2024 12:39 PM CDT [facility] Comment:The IGRE% includes M etamyelocytes, Myelocytes and Promyelocytes. Neutrophil Abs 10.48(H) 1.95 - 7.25 K/uL 01/02/2024 12:39 PM CDT [facility] Lymphocyte Abs 0.79(L) 1.01 - 3.24 K/uL 01/02/2024 12:39 PM CDT [facility] Monocyte Abs 0.22(L) 0.24 - 0.85 K/uL 01/02/2024 12:39 PM CDT [facility] Eosinophil Abs 0.01(L) 0.02 - 0.50 K/uL 01/02/2024 12:39 PM CDT [facility] Basophil Abs 0.03 0.02 - 0.09 K/uL 01/02/2024 12:39 PM CDT [facility] IG Abs 0.03 0.01 - 0.12 K/uL 01/02/2024 12:39 PM CDT [facility] Blood Peripheral blood specimen / Unknown Venipuncture / Unknown 01/02/2024 12:19 PM CDT 01/02/2024 12:33 PM CDT Hakan Nagy MD LAB BLOOD ORDERABLES [facility] Unless otherwise noted, all lab tests performed by: Division of Pathology and Laboratory Medicine [address] [place] [id number] * Pathology Surgical Interpretation (01/02/2024 10:42 AM CDT) Submitted Clinical History Renal mass [N28.89] 01/22/2024 10:13 PM CDT [facility] Diagnosis A: Perinephric fat, resection: Fibroadipose tissue, negative for tumor. B: Kidney, left, hilar mass, partial nephrectomy: RENAL CELL CARCINOMA, CLEAR CELL TYPE. 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 (See comment) PXT/FHH 01/22/2024 10:13 PM CDT [facility] Comment The thrombus in the branch of the renal vein does not have any epithelial cells, which is confirmed by Cytokeratin cocktail and PAX8 immunohistochemical stains (on blocks B2 and B9). 01/22/2024 10:13 PM CDT [facility] Synoptic Checklist KIDNEY: Nephrectomy KIDNEY: [...] apparent mass lesional lymph node grossly identified. Biomechanical Engineer section in A1. PB B: Kidney, left, [...] in B8-B9 PB 01/22/2024 10:13 PM CDT [facility] Biomarker Block(s) Tumor: B8 Normal: A1 01/22/2024 10:13 PM CDT [facility] Disclaimer "Some tests reported here may have been developed and performance characteristics determined by [facility] Pathology and Laboratory Medicine. These tests have not been specifically cleared or approved by the U.S. Food and Drug Administration. If applicable, controls were reviewed and showed appropriate reactivity." 01/22/2024 10:13 PM CDT [facility] Tissue (Perinephric Fat) 01/02/2024 10:42 AM CDT 01/02/2024 11:03 AM CDT Tissue specimen (specimen) (Kidney, Left) 01/02/2024 10:43 AM CDT 01/02/2024 11:03 AM CDT Margoth Souza MD LAB PATHOLOGY ORDERA BLES [facility] [address] [place] [address], [place] * (ABNORMAL) ABG+ (ABG, Na, K, Cl, Glu, Hgb, Hct, Lactate, Ion Ca) (01/02/2024 10:38 AM CDT) Only the most recent of2 resultswithin the time period is included. Sodium Arterial 140 136 - 146 mmol/L 01/02/2024 10:44 AM [facility] Potassium Arterial 3.7 3.4 - 4.5 mmol/L 01/02/2024 10:44 AM [facility] Chloride Arterial 103 98 - 106 mmol/L 01/02/2024 10:44 AM [facility] Glucose Arterial 270(H) 70 - 105 mg/dL 01/02/2024 10:44 AM [facility] Hgb Art 12.9(L) 13.5 - 17.5 g/dL 01/02/2024 10:44 AM [facility] Hematocrit Arterial 40(L) 42 - 52 % 01/02/2024 10:44 AM [facility] Lactate Arterial 1.0(H) 0.4 - 0.8 mmol/L 01/02/2024 10:44 AM [facility] Calcium Ionized Arterial 1.14(L) 1.15 - 1.29 mmol/L 01/02/2024 10:44 AM [facility] pH Arterial 7.35 7.35 - 7.45 01/02/2024 10:44 AM [facility] P CO2 Arterial 42.9 35.0 - 48.0 mmHg 01/02/2024 10:44 AM [facility] P O2 Arterial 164(H) 83 - 108 mmHg 01/02/2024 10:44 AM [facility] Bicarbonate Arterial 24 21 - 28 mmol/L 01/02/2024 10:44 AM [facility] WB Anion Gap 13 7 - 16 mmol/L 01/02/2024 10:44 AM [facility] Base Excess Arterial -2 -2 - 3 mmol/L 01/02/2024 10:44 AM [facility] Oxygen Saturation Arterial 99 95 - 99 % 01/02/2024 10:44 AM [facility] Oxygen FLOW Rate/ FiO2 01/02/2024 10:44 AM [facility] O2 Therapy 01/02/2024 10:44 AM CDT [facility] Art Kirill Test Not Applicable (Arterial Line Draw) 01/02/2024 10:44 AM CDT [facility] Blood Arterial blood specimen / Unknown Arterial Line / Unknown 01/02/2024 10:38 AM CDT 01/02/2024 10:41 AM CDT Narrative [facility] - 01/02/2024 10:44 AM CDT The [...] 0.0301. Alonzo Liu MD LAB BLOOD ORDERABLES [facility] Unless otherwise noted, all lab tests performed by: Division of Pathology and Laboratory Medicine [address] [place] [id number] * Intraoperative Ultrasound - For Image Storage [...] Exp Date (12/23/2023 8:51 AM CDT) Pathologist [facility] PREOP EXP DATE 01/22/2024 12/23/2023 2:19 PM CDT [facility] Blood Peripheral blood specimen / Unknown Venipuncture / Unknown 12/23/2023 8:51 AM CDT 12/23/2023 9:00 AM CDT Margoth Souza MD BLOOD BANK TEST KATYRay FRANKLINJARON [facility] [address] [place] [address] [place] [phone] * Preop Updated Expiration (12/23/2023 8:51 AM CDT) Pathologist [facility] PREOP STATUS 01/02/2024 11:33 PM CDT [facility] PREOP EXP DATE 01/02/2024 01/02/2024 11:33 PM CDT [facility] Blood Peripheral blood specimen / Unknown Venipuncture / Unknown 12/23/2023 8:51 AM CDT 12/23/2023 9:00 AM CDT Margoth Souza MD BLOOD BANK TEST ORDRay ANA [facility] Transfusion Services [address] [place] [address] [place] [phone] * (ABNORMAL) Urinalysis with Reflex Culture (12/23/2023 8:51 AM CDT) Only the most recent of2 resultswithin the time period is included. Pathologist [facility] Urine Appearance Clear Clear 12/23/19 9:33 AM T [facility] Urine Color Straw Colorless, Straw, Yellow, Dark Yellow, Straw-Yellow 12/23/2023 9:33 AM T [facility] Urine Specific [place] 1.032 1.003 - 1.035 12/23/2023 9:33 AM [facility] Urine pH 6.0 5.0 - 8.0 12/23/2023 9:33 AM T [facility] Urine Glucose >=1000(A) Negative mg/dL 12/23/2023 9:33 AM T [facility] Urine Ketones Negative Negative mg/dL 12/23/2023 9:33 AM T [facility] Urine Blood Negative Negative 12/23/2023 9:33 AM T [facility] Urine Protein 30(A) Negative mg/dL 12/23/2023 9:33 AM T [facility] Urine Bilirubin Negative Negative 9:33 AM T [facility] Urine Urobilinogen Negative Negative 12/23/2023 9:33 AM [facility] Urine Nitrite Negative Negative 12/23/2023 9:33 AM [facility] Urine Leukocyte Esterase Negative Negative 12/23/2023 9:33 AM [facility] Urine Mucous Not Seen Not Seen, Trace /HPF 12/23/2023 9:33 AM [facility] Urine Bacteria Not Seen Not Seen /HPF 12/23/2023 9:33 AM T [facility] Urine Squamous Epithelial Cells OCC Not Seen, OCC, Rare /HPF 12/23/2023 9:33 AM [facility] Urine WBC <1 <=2 /HPF 12/23/2023 9:33 AM [facility] Urine RBC 1 <=2 /HPF 12/23/2023 9:33 AM [facility] Urine Voided urine specimen / Unknown Non-blood Collection / Unknown 12/23/2023 8:51 AM CDT 12/23/2023 9:10 AM CDT [facility] - 12/23/2023 9:33 AM CDT Some reporting parameters within the Urinalysis test have changed due to the implementation of new instrumentation in the Main [place], allowing greater sensitivity of measurement. Urinalysis results reported by the [facility] using existing instrumentation, as well as Urinalysis testing performed manually or by back-up methodology at the main campus, will remain relatively unchanged. New reporting parameters and units will now be reported for all campuses. Margoth Souza MD URINE ORDERABLES Performing Organization Address City/[facility]/ZIP Co de Phone Number [facility] Unless otherwise noted, all lab tests performed by: Division of Pathology and Laboratory Medicine [address] [place] [id number] * 30-Day Pre-Op Type and Screen (12/23/2023 8:51 AM CDT) Only the most recent of2 resultswithin the time period is included. ABORh O POS 12/23/2023 8:45 AM CDT [facility] ABSC Negative 12/23/2023 8:45 AM CDT [facility] BB Criteria Met Criteria met 12/23/2023 8:45 AM CDT [facility] Historical Record Check Complete 12/23/2023 8:45 AM CDT [facility] Blood Peripheral blood specimen / Unknown Venipuncture / Unknown 12/23/2023 8:51 AM CDT 12/23/2023 9:00 AM CDT Margoth Souza MD BLOOD BANK TEST ORDE RABLES Performing Organization Address City/[facility]/ZIP Co de Phone Number [facility] Transfusion Services [address] [place] [address] [address] [place] [address] * TMP Interpretation Exception PreOp Expiration (12/23/2023 8:51 AM CDT) Only the most recent of2 resultswithin the time period is included. TMP Exception 12/24/2023 10:47 AM CDT [facility] TMP Signature . 12/24/2023 10:47 AM CDT [facility] Blood Peripheral blood specimen / Unknown Venipuncture / Unknown 12/23/2023 8:51 AM CDT 12/23/2023 9:00 AM CDT Margoth Souza MD BLOOD BANK TEST ORDE ANA [facility] Transfusion Services [address] [place] [address] * (ABNORMAL) Comprehensive Metabolic Panel (12/23/2023 8:51 AM CDT) Only the most recent of2 resultswithin the time period is included. Bilirubin Total 0.3 0.0 - 1.2 mg/dL 12/23/2023 9:41 AM CDT [facility] Comment:Indocyanine Green (I CG) may cause falsely elevated bilirubin results. Total and direct bilirubin must not be measured from samples containing indocyanine green. False elevation of total bilirubin can be seen in patients with IgG concentrations above 28 g/L. eGFR 75 >=60 mL/min/1. 73 sq. m 12/23/2023 9:41 AM CDT [facility] Comment: The eGFRcr is calculated with the [...] 8.3 gm/dL 12/23/2023 9:41 AM [facility] Calcium Level Total 9.9 8.2 - 10.2 mg/dL 12/23/2023 9:41 AM [facility] Alkaline Phosphatase 80 40 - 129 U/L 12/23/2023 9:41 AM [facility] Albumin Level 4.2 3.5 - 5.2 gm/dL 12/23/2023 9:41 AM [facility] AST 15 <=40 U/L 12/23/2023 9:41 AM [facility] ALT 14 <=41 U/L 12/23/2023 9:41 AM [facility] Sodium Level 138 136 - 145 mmol/L 12/23/2023 9:41 AM [facility] Potassium Level 4.2 3.4 - 4.5 mmol/L 12/23/2023 9:41 AM [facility] Chloride 101 98 - 107 mmol/L 12/23/2023 9:41 AM [facility] CO2 29 22 - 29 mmol/L 12/23/2023 9:41 AM [facility] Anion Gap 8 4 - 14 mmol/L 12/23/2023 9:41 AM [facility] Creatinine 1.13 0.67 - 1.17 mg/dL 12/23/2023 9:41 AM [facility] BUN 14 6 - 23 mg/dL 12/23/2023 9:41 AM [facility] Glucose Level 294(H) 70 - 99 mg/dL 12/23/2023 9:41 AM [facility] Comment: Effective 12/14/15, the glucose reference intervals have been updated based on [place] Diabetes Association guidelines (Standards of Medical Care [...] MD LAB BLOOD ORDERABLES Performing Organization Address [facility] de Phone Number [facility] Unless otherwise noted, all lab tests performed by: Division of Pathology and Laboratory Medicine [address] [place] [phone] * (ABNORMAL) Hemoglobin A1c (12/23/2023 8:51 AM CDT) Only the most recent of2 resultswithin the time period is included. [facility] Hemoglobin A1c 9.7(H) 4.3 - 5.6 % 12/23/2023 9:34 AM CDT [facility] Blood Peripheral blood specimen / Unknown Venipuncture / Unknown 12/23/2023 8:51 AM CDT 12/23/2023 9:00 AM CDT Narrative [facility] - 12/23/2023 9:34 AM CDT HbA1c values >=6.5% are diagnostic of diabetes mellitus. Diagnosis should be confirmed by repeat testing. Therapeutic Action suggested: >8.0% HbA1c; Goal of therapy: <7.0% HbA1c Margoth Sozua MD LAB BLOOD ORDERABLES Performing Organization Address [facility] de Phone Number [facility] Unless otherwise noted, all lab tests performed by: Division of Pathology and Laboratory Medicine [address] [place] [id number] * ACTH (12/09/2023 9:45 AM CDT) Only the most recent of2 resultswithin the time period is included. Pathologist [facility] ACTH 22 7 - 63 pg/mL 12/09/2023 12:19 PM CDT [facility] Blood Peripheral blood specimen / Unknown Venipuncture / Unknown 12/09/2023 9:45 AM CDT 12/09/2023 9:52 AM CDT Narrative [facility] - 12/09/2023 12:19 PM CDT Reference range established based on adult population (7 - 10am draws). No established reference values for p.m. draws. Results greater than 1826 pg/mL may not be reliable due to matrix effect with extended dilution as it exceeds the reconstructive dentist's recommended limit. ACTH reference intervals are established for the morning hours from 7-10 am. Due to the circadian rhythm of ACTH levels in plasma, the sample collection time must be noted. Caution should be exercised when interpreting such values and done in conjunction with clinical context. Veronica Del Castillo PROTECTIVE SIGNAL REPAIRER HELPER LAB BLOOD ORDERABL ES [facility] Unless otherwise noted, all lab tests performed by: Division of Pathology and Laboratory Medicine [address] [place] [address] * DHEA Sulfate (12/09/2023 9:45 AM CDT) Pathologist [facility] [place]HEAS[place] [address] 20 - 299 mcg/dL 12/10/2023 12:10 PM CDT [facility] Comment: Test Performed by: [facility] [address] [place] [address] Universal Winding Machine Operator: Mary Jane Topete Ph.D.; CLIA# [id number] Blood Peripheral blood specimen / Unknown Venipuncture / Unknown 12/09/2023 9:45 AM CDT 12/09/2023 9:56 AM CDT [facility] OrtaEvonne PROTECTIVE SIGNAL REPAIRER HELPER LAB BLOOD ORDERABL ES [facility] * Cortisol, Total (12/09/2023 9:45 AM CDT) Only the most recent of4 resultswithin the time period is included. Pathologist [facility] Cortisol 11.39 4.82 - 19.50 mcg/dL 12/09/2023 11:00 AM CDT [facility] Blood Peripheral blood specimen / Unknown Venipuncture / Unknown 12/09/2023 9:45 AM CDT 12/09/2023 9:55 AM CDT Narrative [facility] - 12/09/2023 11:00 AM CDT Cortisol reference [...] Veronica OrtaMónica MARIE LAB BLOOD ORDERABL ES [facility] Unless otherwise noted, all lab tests performed by: Division of Pathology and Laboratory Medicine [address] [place] [address] * IR CT GUIDED BIOPSY RENAL (10/03/2023 10:27 AM CDT) Anatomical Region Laterality Modality Abdomen/Pelvis, Organ (liver/spleen/kidney) Computed Tomography Narrative 10/04/2023 9:03 AM CDT Table formatting from the original result was not included. Date of Procedure: 10/03/23 Attending Physician: Kumar Comer MD Mechanical Assembly Technician: None Pre Procedure Diagnosis: Renal mass Post [...] with Interventional Radiology required. Shazia Arriaza MD [facility] ORDER[place]LES * Pathology Biopsy Interpretation (10/03/2023 10:19 AM CDT) Submitted Clinical History Renal mass [N28.89] 10/04/2023 9:52 AM CDT [facility] Diagnosis A: Kidney, left, biopsy: RENAL CELL CARCINOMA, CLEAR CELL TYPE, ISUP/WHO NUCLEAR GRADE 1. CCG/FGT 10/04/2023 9:52 AM CDT [facility] Gross Description A: Kidney, left, left kidney: Multiple soft castillo-brown tissue cores and core fragments, less than 0.1 cm - 0.2 cm in length and up to 0.1 cm in diameter, entirely submitted in A1. ET 10/04/2023 9:52 AM CDT [facility] Biomarker Block(s) Tumor: A1 10/04/2023 9:52 AM CDT [facility] Disclaimer "Some tests reported here may have been developed and performance characteristics determined by [facility] Pathology and Laboratory Medicine. These tests have not been specifically cleared or approved by the U.S. Food and Drug Administration. If applicable, controls were reviewed and showed appropriate reactivity." 10/04/2023 9:52 AM CDT [facility] Tissue (Kidney, Left) 10/03/2023 10:19 AM CDT 10/03/2023 12:29 PM CDT Shazia Arriaza MD LAB PATHOLOGY ORDE ANA [facility] [address] [place] [address], * Prothrombin Time (10/03/2023 9:27 AM CDT) Prothrombin Time 12.6 11.9 - 14.5 second(s) 10/03/2023 9:57 AM CDT [facility] International Normalization Ratio 0.98 0.87 - 1.12 10/03/2023 9:57 AM CDT [facility] Blood Peripheral blood specimen / Unknown Venipuncture / Unknown 10/03/2023 9:27 AM CDT 10/03/2023 9:28 AM CDT Abilio Ng PA-C LAB BLOOD ORDERABL ES [facility] [address] [place] [address] * Type and Screen (10/03/2023 9:27 AM CDT) ABORh O POS 10/03/2023 9:17 AM CDT [facility] ABSC Negative 10/03/2023 9:17 AM CDT [facility] Clot Expiration 10/06/2023 23:59 10/03/2023 9:17 AM CDT [facility] Historical Record Check Complete 10/03/2023 9:17 AM CDT [facility] Blood Peripheral blood specimen / Unknown Venipuncture / Unknown 10/03/2023 9:27 AM CDT 10/03/2023 9:52 AM CDT Abilio Ng PA-C BLOOD BANK TEST OR DERABLES [facility] Transfusion Services [address] [place] [address] * X-ray Chest 2 Views (09/19/2023 9:24 [...] Metanephrines Fractionated (09/16/2023 4:24 PM CDT) Pathologist [facility] Normetane Free-Maxwell 0.43 <0.90 nmol/L 09/19/2023 2:59 PM CDT [facility] Metanephr Free-Maxwell <0.20 <0.50 nmol/L 09/19/2023 2:59 PM CDT [facility] Comment: ADDITIONAL INFORMATION This test was developed and its performance characteristics determined by [facility] in a manner consistent with CLIA requirements. This test has not been cleared or approved by the U.S. Food and Drug Administration. Test Performed by: [place] [address] Universal Winding Machine Operator: Scot Skelton M.D. Ph.D.; CLIA# [id number] Blood Peripheral blood specimen / Unknown Venipuncture / Unknown 09/16/2023 4:24 PM CDT 09/16/2023 4:41 PM CDT Shazia Arriaza MD LAB BLOOD ORDERABL ES [facility] * Hepatitis C Virus Antibody (09/16/2023 4:24 PM CDT) Pathologist [facility] HCVAb. Non Reactive Non Reactive 09/17/2023 9:11 AM CDT [facility] Blood Peripheral blood specimen / Unknown Venipuncture / Unknown 09/16/2023 4:24 PM CDT 09/16/2023 4:41 PM CDT Narrative [facility] - 09/17/2023 9:11 AM CDT Antibody detection in the immunocompromised and immunosuppressed population may be delayed or absent entirely. Therefore serial testing, correlation with other clinical findings, and supplemental testing (if available) should be taken into consideration when interpreting the results. Shazia Arriaza MD LAB BLOOD ORDERABL ES Performing Organization Address City/[facility]/ZIP Co de Phone Number [facility] Unless otherwise noted, all lab tests performed by: Division of Pathology and Laboratory Medicine [address] [place] [phone] * Aldosterone Level (09/16/2023 4:24 PM CDT) [facility]osteroneTexas Health [facility] 8.1 <=21 ng/dL 09/20/2023 1:02 AM CDT [facility] Comment: ADDITIONAL INFORMATION Reference range for patients 11 years and older is based on upright A.M. collection from subjects without sodium restrictions. This test was developed and its performance characteristics determined by [facility] in a manner consistent with CLIA requirements. This test has not been cleared or approved by the U.S. Food and Drug Administration. Test Performed by: [facility] [address] [address] Universal Winding Machine Operator: Scot Skelton M.D. Ph.D.; CLIA# [id number] Blood Peripheral blood specimen / Unknown Venipuncture / Unknown 09/16/2023 4:24 PM CDT 09/16/2023 4:41 PM CDT Shazia Arriaza MD LAB BLOOD ORDERABL ES Performing Organization Address City/[facility]/ZIP Co de Phone Number [facility] * Renin Activity (09/16/2023 4:24 PM CDT) [facility] Renin Activity-Baggs 4.3 ng/mL/h 09/19 3:42 PM CDT [facility] Comment: REFERENCE VALUE (Peripheral vein specimen) Na-deplete, upright: Mean: 5.9 Range: 2.9-10.8 Na-replete, upright: Mean: 1.0 Range: < or =0.6-3.0 ADDITIONAL INFORMATION Testing performed by Liquid Chromatography-Tandem Mass Spectrometry (LC-MS/MS). This test was developed and its performance characteristics determined by [facility] in a manner consistent with CLIA requirements. This test has not been cleared or approved by the U.S. Food and Drug Administration. Test Performed by: [place] [address] Universal Winding Machine Operator: Scot Skelton M.D. Ph.D.; CLIA# [id number] Blood Peripheral blood specimen / Unknown Venipuncture / Unknown 09/16/2023 4:24 PM CDT 09/16/2023 4:41 PM CDT Shazia Arriaza MD LAB BLOOD ORDERABL ES Performing Organization Address City/[facility] Co de Phone Number [facility] * Urine Culture (09/16/2023 4:24 PM CDT) [facility] Urine Culture Normal site mirna present. Generally of low significance. Correlate with clinical data and culture history. 09/18/2023 8:31 AM CDT [facility] Urine Voided urine specimen / Unknown Non-blood Collection / Unknown 09/16/2023 4:24 PM CDT 09/16/2023 4:41 PM CDT Shazia Arriaza MD MICROBIOLOGY - GEN ERAL ORDERABLES [facility] Unless otherwise noted, all lab tests performed by: Division of Pathology and Laboratory Medicine [address] [place] [id number] * TSH (09/16/2023 4:24 PM CDT) [facility] Thyroid Stimulating Hormone 1.43 0.27 - 4.20 mcunit/mL 09/16/2023 5:23 PM CDT [facility] Blood Peripheral blood specimen / Unknown Venipuncture / Unknown 09/16/2023 4:24 PM CDT 09/16/2023 4:41 PM CDT Shazia Arriaza MD LAB BLOOD ORDERABL ES Performing Organization Address City/[facility]/ZIP Co de Phone Number [facility] [address] [place] [address] * T4 (09/16/2023 4:24 PM CDT) Pathologist [facility] Thyroxine 7.0 4.5 - 11.7 mcg/dL 09/16/2023 5:55 PM CDT [facility] Blood Peripheral blood specimen / Unknown Venipuncture / Unknown 09/16/2023 4:24 PM CDT 09/16/2023 4:41 PM CDT Shazia Arriaza MD LAB BLOOD ORDERABL ES Performing Organization Address City/[facility]/ZIP Co de Phone Number [facility] Unless otherwise noted, all lab tests performed by: Division of Pathology and Laboratory Medicine [address] [place] [phone] * Confirm ABORh (09/16/2023 4:23 PM CDT) Pathologist [facility] ABORh Confirm O POS 09/16/2023 4:15 PM CDT [facility] Blood Peripheral blood specimen / Unknown Venipuncture / Unknown 09/16/2023 4:23 PM CDT 09/16/2023 4:41 PM CDT Shazia Arriaza MD BLOOD BANK TEST OR DERABLES [facility] - TRANSFUSION SERVICES [facility] Transfusion [facility] [address] [place] [address] * OSI CT Abdomen and Pelvis (07/18/2023 7:40 AM COMMODITY BUYER) Narrative Systemgenerated, Documentation - 08/08/2023 7:40 AM CDT Study acquired at another institution. For comparison only. No MD Gimenez originated interpretation requested or available. Margoth Souza MD IMG OUTSIDE IMAGE OR DERABLES * OSI CT Brain (07/17/2023 7:40 AM COMMODITY BUYER) Narrative Systemgenerated, Documentation - 08/08/2023 7:40 AM CDT Study acquired at another institution. For comparison only. No MD Gimenez originated interpretation requested or available. Margoth Souza MD IMG OUTSIDE IMAGE OR DERABLES after 02/27/2023 Advance Directives * Full Code (Latest Code Status on File) Date Activated Date Inactivated Comments 01/02/2024 1:48 PM 01/03/2024 7:17 PM Care Teams Squirrel Man Relationship Specialty Start Date End Date Margoth Souza MD [address] [place] [address] [email or web address] PCP - General Urology 07/30/23 Mary Jane Cassidy MD [address] [place] [phone] [email or web address] Consulting Physician Endocrinology 12/09/23 Barry He MD [address] [place] [phone] [email or web address] Consulting Physician Internal Medicine 12/23/23 Patience Hunt MD [address] [place] [phone] [email or web address] Consulting Physician Endocrinology 12/31/23
[2024-02-27] MEDS ORDERED: NA CHLORIDE 0.9% 1,000 ML ONE (08:49)
[2024-02-27] MEDS ORDERED: FAMOTIDINE 20 MG/2 ML VIAL IV ONE (08:49)
[2024-02-27] MEDS ORDERED: ONDANSETRON 4 MG/2 ML VIAL ONE (08:49)
[2024-02-27 09:11] LABS: Absolute Basophils 0.1 K/uL (0-0.5); Absolute Eosinophils 0.1 K/uL (0-0.5); Absolute Monocytes 0.3 K/uL (0.1-1.3); Absolute Neutrophil 6.1 K/uL (1.8-8.0); Basophils % 1.1 % (0-1.3); Eosinophils % 0.8 % (0-4.4); Hematocrit 38.5 % (39.6-49.0); Hemoglobin 12.7 g/dL (13.6-17.9); MCH 25.7 pg (27.0-35.0); MCV 77.9 fL (80-100); Monocytes % 3.5 % (3.3-12.3); Neutrophils % 81.6 % (41.7-73.7); Platelets 393 thou/uL (152-406); RBC Red Blood Cell Count 4.94 M/uL (4.33-5.43); Red Cell Distribution Width 15.9 % (12.1-15.2)
[2024-02-27 09:15] LABS: PT Prothrombin Time 12.5 SECONDS (9.4-12.5); Protime INR 1.12
[2024-02-27 09:30] LABS: ALT/SGPT 15 U/L (16-61); AST/SGOT 14 U/L (15-37); Albumin 3.6 g/dL (3.4-5.0); Albumin/Globulin Ratio 0.8 (1.1-1.8); Alkaline Phosphatase 107 U/L (45-117); Anion Gap 13.4 mEq/L (5.0-15.0); BUN Blood Urea Nitrogen 23 mg/dL (7-18); Bicarbonate 23 mEq/L (21-32); Bilirubin Total 0.5 mg/dL (0.2-1.0); Globulin 4.7 g/dL (2.3-3.5); Glomerular Filtration Rate 69 ml/min (=/>90); Glucose Level 209 mg/dL (74-106); Lipase 217 U/L (13-75); Magnesium 1.9 mg/dL (1.6-2.4); NT PRO-BNP 1951 pg/mL (<125); Potassium 4.4 mEq/L (3.5-5.1); Protein, Total 8.3 g/dL (6.4-8.2); Sodium Level 137 mEq/L (136-145); Troponin High Sensitivity 25.4 pg/mL (<58.9)
[2024-02-27 09:31] LABS: Bilirubin Direct < 0.2 mg/dL (0-0.2); Bilirubin Indirect, Calculated 0.3 mg/dL (0.2-0.8)
--- NOTE | 2024-02-27 11:00 | ER ---
Nurse's Notes [facility] Name: Zeke Mackay Sr Age: 59 yrs Sex: Male : 1965 Arrival Date: 02/27/2024 Time: 07:56 Bed 4 Private MD: Diagnosis: Abdominal pain, Generalized;Dehydration;Nausea-INTRACTABLE;Abnormal levels of other serum enzymes-ELEVATED LIPASE;Esophagitis, unspecified;Pleural effusion, not elsewhere classified;Hydronephrosis with ureteral stricture, not elsewhere classified Presentation: 02/26 08:06 Chief complaint: Patient states: was just seen and discharged, he feels like he is iw going to throw up, still feels a little SOB. Coronavirus screen: At this time, the client does not indicate any symptoms associated with coronavirus-19. Ebola Screen: No symptoms or risks identified at this time. Initial Sepsis Screen: Does the patient meet any 2 criteria? No. Patient's initial sepsis screen is negative. Does the patient have a suspected source of infection? No. Patient's initial sepsis screen is negative. Risk Assessment: Do you want to hurt yourself or someone else? Patient reports no desire to harm self or others. Onset of symptoms was February 27, 2024. 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 - Infectious Disease History:: Denies. - Social history:: Smoking status: Patient uses street drugs, marijuana. Screenin:49 [facility] ED Fall Risk Assessment (Adult) History of falling in the last 3 months, ph including since admission No falls in past 3 months (0 pts) Confusion or Disorientation No (0 pts) Intoxicated or Sedated No (0 pts) Impaired Gait No (0 pts) Mobility Assist Device Used No (0 pt) Altered Elimination No (0 pt) Score/Fall Risk Level 0 - 2 = Low Risk Oriented to surroundings, Maintained a safe environment, Hourly rounding (assess needs \T\ fall precautionary measures) done. Abuse screen: Denies threats or abuse. Denies injuries from another. Nutritional screening: No deficits noted. Tuberculosis screening: No symptoms or risk factors identified. Assessment: 09:50 General: Appears in no apparent distress. Behavior is calm, cooperative, quiet. Pain: ph Denies pain. Neuro: Level of Consciousness is awake, alert, obeys commands, Oriented to person, place, time, situation. Cardiovascular: Capillary refill < 3 seconds in bilateral fingers Patient's skin is warm and dry. Respiratory: Reports shortness of breath at rest Airway is patent Respiratory effort is even, unlabored, Respiratory pattern is regular, symmetrical. GI: Abdomen is non-distended, Reports nausea, vomiting. Derm: Skin is pink, warm \T\ dry. 11:30 Reassessment: Patient appears in no apparent distress at this time. Patient and/or ph family updated on plan of care and expected duration. Pain level reassessed. Patient is alert, oriented x 3, equal unlabored respirations, skin warm/dry/pink. 13:01 Reassessment: Report faxed to 4th floor. ph Vital Signs: 08:06 BP 166 / 91; Pulse 70; Resp 16; Temp 97; Pulse Ox 100% on R/A; Weight 90.72 kg; Height iw 6 ft. 2 in. ; Pain 0/10; 09:50 BP 158 / 87; Pulse 72; Resp 18; Pulse Ox 99% on R/A; ph 11:30 BP 151 / 86; Pulse 76; Resp 18; Pulse Ox 99% on R/A; ph 12:48 BP 146 / 89; Pulse 68; Resp 18; Temp 97.5; Pulse Ox 97% on R/A; ph 08:06 Body Mass Index 25.68 (90.72 kg, 187.96 cm) iw 08:06 Pain Scale: Adult iw ED Course: 07:58 Patient arrived in ED. im 08:05 Rashi Gimenez MD is Attending Physician. shandra 08:07 Triage completed. iw 08:07 Arm band placed on. iw 08:43 Yohana Holden, ARTURO is Primary Nurse. ph 09:05 Initial lab(s) drawn, by me, sent to lab. Inserted saline lock: 20 gauge in left aa5 antecubital area, using aseptic technique. Blood collected. Flushed with 10 mL NS. 09:51 Patient has correct armband on for positive identification. Bed in low position. Call ph light in reach. Side rails up X 1. Pulse ox on. NIBP on. Door closed. Noise minimized. Warm blanket given. Pillow given. 09:51 Patient admitted, IV remains in place. ph 09:51 No provider procedures requiring assistance completed. ph 10:57 Daniel Best is Hospitalizing Provider. shandra 11:45 CT Abd/Pelvis - IV Contrast Only In Process Unspecified. EDMS 12:06 1206 CM met with at the bedside in the ED exam room. Patient identified by ane name . Demographic sheet confirmed. Patient states he lives with his daughter Anna in a single story home. He reports that prior to admission, he performs ADLs independently and without physical limitations. No DME, no HH, no home oxygen or other medical services at this time. Patient states he does not have an MPOA in place and his PCP is Dr. Eagle Zhu. His preferred plan is to return home upon discharge and states either his friend or daughter can transport him home. Administered Medications: 09:26 Drug: NS 0.9% IV 500 ml IV at bolus once Route: IV; Rate: bolus; Site: left antecubital;ph 10:15 Follow up: Response: No adverse reaction; IV Status: Completed infusion; IV Intake: ph 500ml 09: Drug: NS 0.9% IV 1000 ml IV at 125 ml/hr continuous Route: IV; Rate: 125 ml/hr; Site: ph left antecubital; 11:00 Follow up: Response: No adverse reaction; IV Status: Infusion continued upon admission ph 09:26 Drug: Ondansetron IVP 4 mg IVP once; over 2 minutes Route: IVP; Site: left antecubital; ph 10:53 Follow up: Response: No adverse reaction ph 09:26 Drug: Famotidine IVP 20 mg IVP once; dilute with 10 mL 0.9% NaCl; give over 2 minutes ph Route: IVP; Site: left antecubital; 10:52 Follow up: Response: No adverse reaction ph Medication: 09:51 VIS not applicable for this client. ph Intake: 10:15 IV: 500ml; Total: 500ml. ph Outcome: 10:58 Decision to Hospitalize by Provider. shandra 13:50 Patient left the ED. ph 13:50 Admitted to Med/surg accompanied by nurse, via wheelchair, with chart, ph 13:50 Condition: good 13:50 Instructed on the need for admit, Signatures: Dispatcher [employer] EDRashi López MD MD cha Williams, Irene RN Allison Romero RN ARTURO [email or web address] Yohana Holden RN RN Gauri Perez Andie RN ARTURO hill
--- NOTE | 2024-02-27 11:00 | EDPHYS ---
Physician Documentation [facility] Name: Zeke Mackay Sr Age: 59 yrs Sex: Male : 1965 Arrival Date: 02/27/2024 Time: 07:56 Bed 4 Private MD: RAVIN Physician Rashi Gimenez HPI: 02/26 10:50 This 59 yrs old Male presents to ER via Ambulatory with complaints of Nausea. shandra 10:50 The patient presents to the emergency department with nausea, vomiting, that is shandra intermittent, described as bilious, abdominal pain, of the right lower quadrant and left lower quadrant, described as crampy. Onset: The symptoms/episode began/occurred 2 day(s) ago. Possible causes: unknown. The symptoms are aggravated by nothing. The symptoms are alleviated by nothing. Associated signs and symptoms: Pertinent positives: abdominal pain, anorexia, nausea. Severity of symptoms: At their worst the symptoms were mild moderate in the emergency department the symptoms are unchanged. The patient has experienced similar episodes in the past, a few times. 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 - Infectious Disease History:: Denies. - Social history:: Smoking status: Patient uses street drugs, marijuana. ROS: 10:51 Constitutional: Negative for fever, chills, and weight loss, Eyes: Negative for injury, shandra pain, redness, and discharge, ENT: Negative for injury, pain, and discharge, Neck: Negative for injury, pain, and swelling, Cardiovascular: Negative for chest pain, palpitations, and edema, Respiratory: Negative for shortness of breath, cough, wheezing, and pleuritic chest pain, Back: Negative for injury and pain, : Negative for injury, bleeding, discharge, and swelling, MS/Extremity: Negative for injury and deformity, Skin: Negative for injury, rash, and discoloration, Neuro: Negative for headache, weakness, numbness, tingling, and seizure, Psych: Negative for depression, anxiety, suicide ideation, homicidal ideation, and hallucinations, Allergy/Immunology: Negative for hives, rash, and allergies, Endocrine: Negative for neck swelling, polydipsia, polyuria, polyphagia, and marked weight changes, Hematologic/Lymphatic: Negative for swollen nodes, abnormal bleeding, and unusual bruising, 10:51 Abdomen/GI: Positive for abdominal pain, nausea, abdominal cramps, abdominal distension, Exam: 10:51 Constitutional: This is a well developed, well nourished patient who is awake, alert, shandra and in no acute distress. Head/Face: Normocephalic, atraumatic. Eyes: Pupils equal round and reactive to light, extra-ocular motions intact. Lids and lashes normal. Conjunctiva and sclera are non-icteric and not injected. Cornea within normal limits. Periorbital areas with no swelling, redness, or edema. ENT: Nares patent. No nasal discharge, no septal abnormalities noted. Tympanic membranes are normal and external auditory canals are clear. Oropharynx with no redness, swelling, or masses, exudates, or evidence of obstruction, uvula midline. Mucous membranes moist. Neck: Trachea midline, no thyromegaly or masses palpated, and no cervical lymphadenopathy. Supple, full range of motion without nuchal rigidity, or vertebral point tenderness. No Meningismus. Chest/axilla: Normal chest wall appearance and motion. Nontender with no deformity. No lesions are appreciated. Cardiovascular: Regular rate and rhythm with a normal S1 and S2. No gallops, murmurs, or rubs. Normal PMI, no JVD. No pulse deficits. Respiratory: Lungs have equal breath sounds bilaterally, clear to auscultation and percussion. No rales, rhonchi or wheezes noted. No increased work of breathing, no retractions or nasal flaring. Abdomen/GI: Soft, non-tender, with normal bowel sounds. No distension or tympany. No guarding or rebound. No evidence of tenderness throughout. Back: No spinal tenderness. No costovertebral tenderness. Full range of motion. Male : Normal genitalia with no discharge or lesions. Skin: Warm, dry with normal turgor. Normal color with no rashes, no lesions, and no evidence of cellulitis. MS/ Extremity: Pulses equal, no cyanosis. Neurovascular intact. Full, normal range of motion. Neuro: Awake and alert, GCS 15, oriented to person, place, time, and situation. Cranial nerves II-XII grossly intact. Motor strength 5/5 in all extremities. Sensory grossly intact. Cerebellar exam normal. Normal gait. Psych: Awake, alert, with orientation to person, place and time. Behavior, mood, and affect are within normal limits. 10:51 ECG was reviewed by the Attending Physician. 10:53 ECG was reviewed by the Attending Physician. shandra Vital Signs: 08:06 BP 166 / 91; Pulse 70; Resp 16; Temp 97; Pulse Ox 100% on R/A; Weight 90.72 kg; Height iw 6 ft. 2 in. ; Pain 0/10; 09:50 BP 158 / 87; Pulse 72; Resp 18; Pulse Ox 99% on R/A; ph 11:30 BP 151 / 86; Pulse 76; Resp 18; Pulse Ox 99% on R/A; ph 12:48 BP 146 / 89; Pulse 68; Resp 18; Temp 97.5; Pulse Ox 97% on R/A; ph 08:06 Body Mass Index 25.68 (90.72 kg, 187.96 cm) iw 08:06 Pain Scale: Adult iw MDM: 08:05 Patient medically screened. [facility] 10:52 Differential diagnosis: Nonspecific abd pain, gastritis, cholecystitis, pancreatitis, shandra appendicitis, diverticulitis, viral gastroenteritis, gastroenteritis. Data reviewed: vital signs, nurses notes, lab test result(s), EKG, radiologic studies, CT scan, plain films. Consideration of Admission/Observation Patient was admitted/placed on observation. Escalation of care including admission/observation considered. I considered the following discharge prescriptions or medication management in the emergency department Medications were administered in the Emergency Department. See MAR. Independent interpretation of the following test(s) in the Emergency Department EKG: See my EKG interpretation above. Test considered but Not performed: MRI: NO MRCP. Historians other than the Patient: PT WELL INFORMED. Care significantly affected by the following chronic conditions: Diabetes, Hypertension. Counseling: I had a detailed discussion with the patient and/or guardian regarding the historical points, exam findings, and any diagnostic results supporting the discharge/admit diagnosis, lab results, radiology results, the need for further work-up and treatment in the hospital. 02/26 08:06 Order name: Basic Metabolic Panel; Complete Time: 10:45 shandra 02/26 08:06 Order name: CBC with Diff; Complete Time: 10:45 shandra 02/26 08:06 Order name: LFT's; Complete Time: 10:45 [facility] 02/26 08:06 Order name: Magnesium; Complete Time: 10:45 [facility] 02/26 08:06 Order name: NT PRO-BNP; Complete Time: 10:45 [facility] 02/26 08:06 Order name: PT-INR; Complete Time: 10:45 [facility] 02/26 08:06 Order name: Troponin HS; Complete Time: 10:45 [facility] 02/26 08:06 Order name: Lipase; Complete Time: 10:45 [facility] 02/26 08:06 Order name: Urinalysis w/ reflexes 02/26 11:28 Order name: CT Abd/Pelvis - IV Contrast Only; Complete Time: 12:12 [facility] 02/26 08:06 Order name: EKG; Complete Time: 08:06 [facility] 02/26 08:06 Order name: Cardiac monitoring; Complete Time: 08:44 [facility] 02/26 08:06 Order name: EKG - Nurse/Tech; Complete Time: 09:26 [facility] 02/26 08:06 Order name: IV Saline Lock; Complete Time: 09:07 [facility] 02/26 08:06 Order name: Labs collected and sent; Complete Time: 09:07 [facility] 02/26 08:06 Order name: O2 Per Protocol; Complete Time: 08:44 [facility] 02/26 08:06 Order name: O2 Sat Monitoring; Complete Time: 08:44 [facility] EC:53 Rate is 75 beats/min. Rhythm is regular. QRS [place] is Normal. [place] interval is normal. QRS shandra interval is normal. QT interval is prolonged at 475 msec. No Q waves. T waves are Normal. No ST changes noted. Clinical impression: NSR w/ Non-specific ST/T Changes and No evidence of ischemia. Interpreted by me. Reviewed by me. Administered Medications: 09: Drug: NS 0.9% IV 500 ml IV at bolus once Route: IV; Rate: bolus; Site: left antecubital;ph 10:15 Follow up: Response: No adverse reaction; IV Status: Completed infusion; IV Intake: ph 500ml 09: Drug: NS 0.9% IV 1000 ml IV at 125 ml/hr continuous Route: IV; Rate: 125 ml/hr; Site: ph left antecubital; 11:00 Follow up: Response: No adverse reaction; IV Status: Infusion continued upon admission ph 09:26 Drug: Ondansetron IVP 4 mg IVP once; over 2 minutes Route: IVP; Site: left antecubital; ph 10:53 Follow up: Response: No adverse reaction ph 09:26 Drug: Famotidine IVP 20 mg IVP once; dilute with 10 mL 0.9% NaCl; give over 2 minutes ph Route: IVP; Site: left antecubital; 10:52 Follow up: Response: No adverse reaction ph Disposition Summary: 02/27/24 10:58 Hospitalization Ordered Notes: Hospitalization Status: Observation shandra Provider: Daniel Best cha Location: Telemetry/MedSurg (observation) shandra Condition: Fair shandra Problem: new shandra Symptoms: have improved shandra Bed/Room Type: Standard [facility] Room Assignment: 415(02/27/24 12:46) bc6 Diagnosis - Abdominal pain, Generalized shandra - Dehydration shandra - Nausea - INTRACTABLE shandra - Abnormal levels of other serum enzymes - ELEVATED LIPASE shandra - Esophagitis, unspecified shandra - Pleural effusion, not elsewhere classified shandra - Hydronephrosis with ureteral stricture, not elsewhere classified shandra Forms: - Medication Reconciliation Form shandra - SBAR form shandra - Leadership Thank You Letter shandra Signatures: Dispatcher [employer] EDMS Rashi Gimenez MD MD cha Williams, Irene, RN RN You Carson FNP-C [employer] CUTTING MACHINE OPERATOR-Cla1 Yohana Holden RN RN Maria Eugenia Giraldo bc6 Corrections: (The following items were deleted from the chart) 08:06 08:06 BASIC METABOLIC PANEL+C.LAB.BRZ ordered. EDMS EDMS 08:06 08:06 CBC+H.LAB.BRZ ordered. EDMS EDMS 08:06 08:06 HEPATIC FUNCTION+C.LAB.BRZ ordered. EDMS EDMS 08:06 08:06 MAGNESIUM+C.LAB.BRZ ordered. EDMS EDMS 08:06 08:06 PROBNP+C.LAB.BRZ ordered. EDMS EDMS 08:06 08:06 PROTIME (+INR)+COAG.LAB.BRZ ordered. EDMS EDMS 08:06 08:06 Troponin High Sensitivity+C.LAB.BRZ ordered. EDMS EDMS 08:06 08:06 LIPASE+C.LAB.BRZ ordered. EDMS EDMS 08:06 08:06 Urinalysis+U.LAB.BRZ ordered. EDMS EDMS 08:53 08:06 Chest Single View+RAD.RAD.BRZ ordered. EDMS EDMS 10:47 10:47 Abdomen Pelvis W Con+CT.RAD.BRZ ordered. EDMS EDMS 10:54 10:51 Rate is 75 beats/min. Rhythm is regular. QRS [place] is Normal. [place] interval is shandra normal. QRS interval is normal. QT interval is normal. No Q waves. T waves are Normal. No ST changes noted. Clinical impression: NSR w/ Non-specific ST/T Changes and No evidence of ischemia. Interpreted by me. Reviewed by me. shandra 12:46 10:58 shandra bc6 12:56 12:56 EC Echo Doppler W/Color Flow+ECHO.RAD.BRZ ordered. EDMS EDMS
--- NOTE | 2024-02-27 12:08 | RAD REPORT ---
EXAMINATION: CT ABDOMEN AND PELVIS WITH CONTRAST CLINICAL INDICATION: Male, 59 years old.ABD PAIN TECHNIQUE: CT abdomen and pelvis was performed, after the administration of IV contrast, as per depar tment protocol. Axial, sagittal and coronal reconstructions were obtained. One or more of the following dose reduction techniques were used: Automated exposure control, adjustment of the mA and/o r kV according to patient size, and/or iterative reconstruction. Unless otherwise specified, incidental findings do not require dedicated imaging follow-up. [id number]. COMPARISON: 01/06/2024 FINDINGS: LOWER CHEST: Small left pleural effusion and likely underlying atelectasis. Coronary calcifications. Sternotomy. Moderately thickened distal esophagus likely reflecting esophagitis. LIVER: Normal in size and contour. No focal lesion. GALLBLADDER/BILE DUCT: Cholelithiasis. No CT evidence of acute process.? PANCREAS: No significant abnormality. SPLEEN: Normal size. No focal lesion. ADRENALS: Normal; no mass. KIDNEYS AND URETERS: Interval development of mild right-sided hydronephrosis. The ureter is nondilate d. No obstructing stone or mass is identified. Surgical changes from partial left nephrectomy. GASTROINTESTINAL TRACT: Stomach is non-dilated. Small bowel has normal course and caliber. No colonic wall thickening or pericolonic inflammatory changes. Question diffuse gastric wall thickening. PERITONEUM: Mild pelvic free fluid. LYMPH NODES: No lymphadenopathy. ABDOMINAL AORTA AND OTHER VESSELS: Normal caliber aorta and IVC. Atherosclerosis. URINARY BLADDER: Normal contour. REPRODUCTIVE ORGANS: No pathologic process mild prostatomegaly. MUSCULOSKELETAL: No acute or suspicious osseous abnormality. ADDITIONAL FINDINGS: None. IMPRESSION: 1. Interval development of right-sided hydronephrosis. No obstructing stone or mass identified. This could be secondary to infection. 2. Distal esophageal and gastric wall thickening that may reflect esophagitis/gastritis. Endoscopy co uld further evaluate. 3. Enlarging though still small left pleural effusion. 4. Surgical changes from recent partial left nephrectomy.
[2024-02-27 13:54] VITALS: BMI 25.7
[2024-02-27] MEDS ORDERED: SODIUM CHLORIDE 0.9% 10ML INJ IV PRN (14:12)
[2024-02-27] MEDS: NA CHLORIDE 0.9% 1,000 ML IV SCH (14:26)
[2024-02-27] MEDS: HYDRALAZINE HCL 20 MG/ML VIAL IV PRN (14:27)
--- NOTE | 2024-02-27 15:28 | P.HP ---
Certification for Inpatient Patient admitted to: Observation With expected LOS: <2 Midnights Patient will require the following post-hospital care: None Practitioner: I am a practitioner with admitting privileges, knowledge of patient current condition, hospital course, and medical plan of care. Services: Services provided to patient in accordance with Admission requirements found in Title 42 Section 412.3 of the Code of Federal Regulations Patient History Date of Service: 02/27/24 History of Present Illness: 59-year-old male with history of CAD with recent 5 vessel CABG, renal cell carcinoma with recent partial left nephrectomy, diabetes mellitus type 2insulin-dependent, atrial fibrillation, hyperlipidemia, hypertension presented to the emergency department earlier this morning for dyspnea, diaphoresis, nausea. He was evaluated in the emergency department subsequently discharged, before leaving the Emergency Department he began to feel poorly again with dyspnea and nausea/vomiting and he checked back into the emergency department. He was evaluated again this time with CT as well CT abdomen pelvis showed distal esophageal gastric wall thickening that may be reflect esophagitis/gastritis, interval development of right sided hydronephrosis, no obstructing stone or mass identified which could be secondary to infection. Still feeling nauseous after evaluation in the ED and ED prior wishes to admit under observation for dyspnea, nausea and vomiting Allergies No Known Allergies Allergy (Verified 08/17/20 20:54) Home Medications: Aspirin Chewable [Aspirin Chewable*] 1 tab PO DAILY 02/27/24 Atorvastatin Calcium 1 tab PO BEDTIME 02/27/24 Clopidogrel Bisulfate [Plavix] 1 tab PO DAILY 02/27/24 Metoprolol Tartrate 0.5 tab PO Q12H 02/27/24 - Past Medical/Surgical History Has patient received pneumonia vaccine in the past: No Diabetic: Yes -: Neuropathy -: Diabetes -: Hyperlipidemia -: Osteomyelitis -: AFib on anticoagulation -: RENAL CELL CARCINOMA -: lap appy -: L wrist fx repair -: R hand fx repair -: c3-6 fused -: amputations to right pinky toe, left big toe Psychosocial/ Personal History: Patient is retired, lives with his and children - Family History Father -: Diabetes, Other (see notes) Notes: Stroke - Social History Smoking Status: Never smoker Alcohol use: No CD- Drugs: Yes Caffeine use: Yes Place of Residence: Home Review of Systems 10-point ROS is otherwise unremarkable Respiratory: Shortness of Breath Gastrointestinal: Nausea, Vomiting Physical Examination - Vital Signs Temperature: 97.5 F Blood Pressure: 146/89 Pulse: 68 Respirations: 18 - Physical Exam General: Alert, In no apparent distress, Oriented x3 HEENT: Atraumatic, PERRLA, EOMI Neck: Supple, 2+ carotid pulse no bruit, No LAD Respiratory: Clear to auscultation bilaterally, Normal air movement Cardiovascular: Regular rate/rhythm, Normal S1 S2 Gastrointestinal: Normal bowel sounds, No tenderness Musculoskeletal: No tenderness Integumentary: No rashes Neurological: Normal speech, Normal strength at 5/5 x4 extr, Normal tone, Normal affect - Studies Laboratory Data (last 24 hrs) 02/27/24 02/27/24 02/27/24 09:05 09:05 09:05 WBC 7.40 Hgb 12.7 L Hct 38.5 L Plt Count 393 PT 12.5 INR 1.12 Sodium 137 Potassium 4.4 D BUN 23 H Creatinine 1.21 Glucose 209 H Magnesium 1.9 Total Bilirubin 0.5 AST 14 L ALT 15 L Alkaline Phosphatase 107 Lipase 217 H Assessment and Plan - Plan Assessment: Esophagitis/gastritis with nausea/vomiting Dyspnea CAD with recent 5 vessel CABG History of renal cell carcinoma with partial left nephrectomy Mild right hydronephrosis History of atrial fibrillation Plan: Esophagitis/gastritis with nausea/vomiting Feeling a little better at this time CT showed Suspected esophagitis/gastritis Started on twice daily PPI reevaluate in the morning, advance diet as tolerated Dyspnea Episodic, improved chest x-ray does show small left pleural effusion Tolerating room air CAD with recent 5 vessel CABG Home meds when verified History of renal cell carcinoma with partial left nephrectomy Mild right hydronephrosis No obstructive findings in the right collecting system/ureter Renal function stable outpatient follow-up with urology History of atrial fibrillation Continue home medications when verified unclear if patient is on anticoagulation DVT PPX: Lovenox Code status:Full Discharge Plan: Home Plan to discharge in: 24 Hours - Advance Directives Does patient have a Living Will: No Does patient have a Durable POA for Healthcare: No Critical Care: No Time Spent Managing Pts Care (In Minutes): 61
[2024-02-27] MEDS: ONDANSETRON 4 MG/2 ML VIAL IV PRN (18:44)
[2024-02-27] MEDS: PANTOPRAZOLE 40 MG INJ IVP SCH (19:51)
[2024-02-28 06:00] LABS: Absolute Basophils 0.1 K/uL (0-0.5); Absolute Lymphocytes (CBC) 1.1 K/uL (0.7-4.9); Absolute Monocytes 0.5 K/uL (0.1-1.3); Absolute Neutrophil 4.6 K/uL (1.8-8.0); Basophils % 1.1 % (0-1.3); Eosinophils % 0.8 % (0-4.4); Hemoglobin 11.4 g/dL (13.6-17.9); MCH 25.3 pg (27.0-35.0); MCHC 32.4 g/dL (32.0-36.0); MCV 78.1 fL (80-100); MPV 7.3 fL (7.6-11.3); Neutrophils % 73.1 % (41.7-73.7); Platelets 352 thou/uL (152-406); RBC Red Blood Cell Count 4.49 M/uL (4.33-5.43); Red Cell Distribution Width 15.9 % (12.1-15.2)
[2024-02-28 06:15] LABS: Anion Gap 9.5 mEq/L (5.0-15.0); Potassium 3.5 mEq/L (3.5-5.1)
[2024-02-28] MEDS: ASPIRIN 81 MG CHEWABLE TABLET PO SCH (08:00)
[2024-02-28] MEDS: ENOXAPARIN 40 MG/0.4 ML SQ SCH (08:00)
[2024-02-28] MEDS: POTASSIUM CL SA 10 MEQ TAB PO ONE (08:00)
[2024-02-28] MEDS: CLOPIDOGREL 75 MG TABLET PO SCH (08:01)
[2024-02-28] MEDS: METOPROLOL TAR 25 MG TAB PO SCH (08:01)
[2024-02-28 10:01] VITALS: O2SAT 95
[2024-02-28] MEDS: SUCRALFATE 1GM/10ML UCUP PO SCH (10:52)
--- NOTE | 2024-02-28 14:09 | EKG ---
Test Date: 2024-02-27 Test Time: 09:17:59 [employer] Banker: PH MEASUREMENT RESULTS: Intervals: Rate: 75 ME: 164 QRSD: 78 QT: 426 QTc: 475 [place]: P: 54 ME: 164 QRS: 45 T: 161 INTERPRETIVE STATEMENTS: Sinus rhythm with marked sinus arrhythmia ST & T wave abnormality, consider lateral ischemia Prolonged QT Abnormal ECG Compared to ECG 02/27/2024 05:14:43 Possible ischemia now present ST (T wave) deviation still present Electronically Signed On 02-28-24 14:07:30 CDT by Lucas Huang
--- NOTE | 2024-02-28 16:48 | P.PN ---
Date of Service: 02/28/24 Subjective: Improving with carafate/PPI Still having some nausea ROS: 10 point ROS as noted above, otherwise negative Physical exam GEN: Alert, oriented, NAD HEENT: Normal conjunctiva, sclera anicteric CV: Regular rate and rhythm, no edema Pulm: Nonlabored respirations on room air ABD: Soft, nontender, nondistended MSK: No joint tenderness Integumentary: No rashes Neuro: Normal speech, normal affect Vitals reviewed Assessment: Esophagitis/gastritis with nausea/vomiting Dyspnea CAD with recent 5 vessel CABG History of renal cell carcinoma with partial left nephrectomy Mild right hydronephrosis History of atrial fibrillation Plan: Esophagitis/gastritis with nausea/vomiting Feeling a little better at this time CT showed Suspected esophagitis/gastritis Started on twice daily PPI Was still quite nauseous this morning, added Carafate and switch to clear l iquids for large Reevaluated after lunch, feeling a bit better will try regular diet for dinner with Carafate Dyspnea Episodic, improved chest x-ray does show small left pleural effusion Tolerating room air CAD with recent 5 vessel CABG Home meds when verified History of renal cell carcinoma with partial left nephrectomy Mild right hydronephrosis No obstructive findings in the right collecting system/ureter Renal function stable outpatient follow-up with urology History of atrial fibrillation Continue home medications when verified unclear if patient is on anticoagulation DVT PPX: Lovenox Code status:Full Discharge Plan: Home Plan to discharge in: 24 Hours Time Spent Managing Pts Care (In Minutes): 35
[2024-02-28] MEDS: ATORVASTATIN 40 MG TAB PO SCH (20:30)
[2024-02-29 10:03] LABS: Absolute Basophils 0.1 K/uL (0-0.5); Absolute Eosinophils 0.1 K/uL (0-0.5); Absolute Lymphocytes (CBC) 1.8 K/uL (0.7-4.9); Absolute Monocytes 0.5 K/uL (0.1-1.3); Absolute Neutrophil 5.2 K/uL (1.8-8.0); Basophils % 1.2 % (0-1.3); Eosinophils % 1.7 % (0-4.4); Hemoglobin 11.6 g/dL (13.6-17.9); Lymphocytes % 23.5 % (15.3-44.8); MCH 26.1 pg (27.0-35.0); MCHC 33.2 g/dL (32.0-36.0); MCV 78.6 fL (80-100); MPV 7.4 fL (7.6-11.3); Monocytes % 6.8 % (3.3-12.3); Neutrophils % 66.8 % (41.7-73.7); Nucleated Red Blood Cells % 0.3 % (0-0); Platelets 350 thou/uL (152-406); RBC Red Blood Cell Count 4.46 M/uL (4.33-5.43); Red Cell Distribution Width 16.1 % (12.1-15.2)
[2024-02-29 10:20] LABS: Anion Gap 10.9 mEq/L (5.0-15.0)
[2024-02-29 10:21] LABS: Potassium 3.9 mEq/L (3.5-5.1)
[2024-02-29 11:14] LABS: Blood Morphology Comment NOT SEEN (NOT SEEN); Platelet Estimate ADEQ; Platelets Clumped FEW SMALL PRESENT; White Blood Cell Scan OK (OK)
[2024-02-29] MEDS: AMLODIPINE 5 MG TAB PO ONE (11:41)
--- NOTE | 2024-02-29 16:18 | P.DS ---
Admission Date: 02/28/24 Discharge Date: 02/29/24 Disposition: ROUTINE DISCHARGE Discharge Condition: GOOD Brief History of Present Illness: 59-year-old male with history of CAD with recent 5 vessel CABG, renal cell carcinoma with recent partial left nephrectomy, diabetes mellitus type 2insulin-dependent, atrial fibrillation, hyperlipidemia, hypertension presented to the emergency department earlier this morning for dyspnea, diaphoresis, nausea. He was evaluated in the emergency department subsequently discharged, before leaving the Emergency Department he began to feel poorly again with dyspnea and nausea/vomiting and he checked back into the emergency department. He was evaluated again this time with CT as well CT abdomen pelvis showed distal esophageal gastric wall thickening that may be reflect esophagitis/gastritis, interval development of right sided hydronephrosis, no obstructing stone or mass identified which could be secondary to infection. Still feeling nauseous after evaluation in the ED and ED prior wishes to admit under observation for dyspnea, nausea and vomiting Hospital Course: Assessment: Esophagitis/gastritis with nausea/vomiting Dyspnea CAD with recent 5 vessel CABG History of renal cell carcinoma with partial left nephrectomy Mild right hydronephrosis History of atrial fibrillation Vital Signs/Physical Exam: Temp Pulse Resp BP Pulse Ox 98.1 F 64 96 H 186/90 H 96 02/29/24 16:00 02/29/24 16:00 02/29/24 16:00 02/29/24 16:00 02/29/24 16:00 General: Alert, In no apparent distress, Oriented x3 HEENT: Atraumatic, PERRLA Neck: Supple, JVD not distended Respiratory: Clear to auscultation bilaterally, Normal air movement Cardiovascular: Regular rate/rhythm, Normal S1 S2 Gastrointestinal: Normal bowel sounds, No tenderness Musculoskeletal: No tenderness Integumentary: No rashes Neurological: Normal speech, Normal tone, Normal affect Laboratory Data at Discharge: WBC 7.70 thou/uL (4.3-10.9) 02/29/24 09:40 Hgb 11.6 g/dL (13.6-17.9) L 02/29/24 09:40 Hct 35.0 % (39.6-49.0) L 02/29/24 09:40 Plt Count 350 thou/uL (152-406) 02/29/24 09:40 PT 12.5 SECONDS (9.4-12.5) 02/27/24 09:05 INR 1.12 02/27/24 09:05 Sodium 137 mEq/L (136-145) 02/29/24 09:40 Potassium 3.9 mEq/L (3.5-5.1) 02/29/24 09:40 BUN 16 mg/dL (7-18) 02/29/24 09:40 Creatinine 1.03 mg/dL (0.70-1.30) 02/29/24 09:40 Glucose 145 mg/dL (74-106) H 02/29/24 09:40 Magnesium 1.9 mg/dL (1.6-2.4) 02/27/24 09:05 Total Bilirubin 0.5 mg/dL (0.2-1.0) 02/27/24 09:05 AST 14 U/L (15-37) L 02/27/24 09:05 ALT 15 U/L (16-61) L 02/27/24 09:05 Alkaline Phosphatase 107 U/L (45-117) 02/27/24 09:05 Lipase 217 U/L (13-75) H 02/27/24 09:05 Home Medications: Aspirin Chewable [Aspirin Chewable*] 1 tab PO DAILY 02/27/24 Atorvastatin Calcium 1 tab PO BEDTIME 02/27/24 Clopidogrel Bisulfate [Plavix] 1 tab PO DAILY 02/27/24 Metoprolol Tartrate 0.5 tab PO Q12H 02/27/24 Dapagliflozin Propanediol [Farxiga] 1 tab PO DAILY 02/28/24 Insulin Glargine/Lixisenatide [Soliqua 100 Unit-33 Mcg/ml Pen] 60 units SQ DAILY 02/28/24 Metformin HCl 2 tab PO DAILY 02/28/24 Amlodipine [Norvasc*] 5 mg PO DAILY #30 tab 02/29/24 Pantoprazole [Protonix Tab] 40 mg PO BID #44 tab 02/29/24 Sucralfate [Carafate*] 10 ml PO ACHS PRN #1200 ml 02/29/24 New Medications: Sucralfate [Carafate*] 10 ml PO ACHS PRN #1200 ml PRN Reason: Nausea / Vomiting Amlodipine [Norvasc*] 5 mg PO DAILY #30 tab Pantoprazole [Protonix Tab] 40 mg PO BID #44 tab Physician Discharge Instructions: Patient was admitted to the hospital for nausea, vomiting and dyspnea. His dyspnea spontaneously resolved and did not recur during his hospitalization, he did have persistent nausea and vomiting. He had a CT of his abdomen pelvis performed which did show distal esophageal and gastric wall thickening which may reflect esophagitis/gastritis, interval development of right-sided hydronephrosi s without obstructing stone or mass identified. Patient was admitted to the hospital initially treated with twice daily Protonix without improvement, Carafate was subsequently added which significantly helped with the symptoms. He has been able to tolerate both breakfast and lunch today and is feeling much better, asking to be discharged at this time. Patient's blood pressure was notably elevated throughout his hospitalization, he does not check his blood pressure at home but he has been asymptomatic. Amlodipine 5 mg was added to his daily medications and has been sent to his pharmacy. Recommend patient checks his blood pressure daily at home and record a log, follows up with his primary care doctorDr. Zhu. Patient will also need to follow-up with urology in regards to the right sided hydronephrosis/swelling of the kidney which was mild in nature, ureter is nondilated. Renal function remains intact creatinine 1.03 today. He will be sent prescriptions for the following medications amlodipine 5 mg daily Protonix twice daily for 2 weeks followed by once daily for additional 2 weeks Carafate before meals and before sleep as needed Continue other home medications as previously prescribed Diet: Regular Activity: Ad codi Followup: Eagle Zhu DO [Primary Care Provider] - 1-2 Weeks Luther Jiménez [ACTIVE - CAN ADMIT] - 1-2 Weeks Time spent managing pt's care (in minutes): 45
[2024-02-29 19:08] VITALS: BP 186/90; TEMP 98.1
== END 2024-02-29 16:00 | disposition home or self-care (01) | DRG 392 ==
LOC: ER 07:56 → ERHOLD 12:28 → 4TH 12:55 → OBSVTOIN 02-28 17:41
PROVIDERS: ADMIT Hospitalist; ATTEND Hospitalist
DX: K29.70 Gastritis, unspecified, without bleeding (principal); N13.1 Hydronephrosis with ureteral stricture, not elsewhere classified; J91.8 Pleural effusion in other conditions classified elsewhere; K20.90 Esophagitis, unspecified without bleeding; E11.40 Type 2 diabetes mellitus with diabetic neuropathy, unspecified; E03.9 Hypothyroidism, unspecified; E86.0 Dehydration; I10 Essential (primary) hypertension; E78.5 Hyperlipidemia, unspecified; I48.91 Unspecified atrial fibrillation; I25.10 Atherosclerotic heart disease of native coronary artery without angina pectoris; Z90.5 Acquired absence of kidney; Z79.4 Long term (current) use of insulin; Z95.1 Presence of aortocoronary bypass graft; Z79.02 Long term (current) use of antithrombotics/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s; Z79.82 Long term (current) use of aspirin; Z90.49 Acquired absence of other specified parts of digestive tract; Z89.412 Acquired absence of left great toe; Z89.421 Acquired absence of other right toe(s); Z79.899 Other long term (current) drug therapy
CPT/HCPCS: 36415; 74177; 80048; 80076; 83690; 83735; 83880; 84484; 85025; 85610; 93005; 96361; 96374; 96375; 99285; G0378; J0360; J1650; J2405; J2470; J7030; Q9967

== ENCOUNTER 2024-03-08 06:33 | Emergency (ER) | payer OTHER ==
--- OUTSIDE RECORDS SUMMARY | 2024-03-08 06:36 | XMS REPORT | Clinical Summary ---
Author Name Unknown Organization [facility] Address [address] [place] [address] Care Team Providers Care Solution Coordinator Name Role Phone Margoth Souza MD Primary Care Provider [phone] Mary Jane Cassidy MD Unavailable [phone] Barry He MD Unavailable Patience Hunt MD [...] than 9% indicating poor diabetic control 01/02/2024 group home current use of systemic steroid 2023 Adverse [...] PM CDT Telemedicine [facility] [address], 7th [place] [address] Margoth Souza MD Renal mass (Primary Dx) 01/02/2024 7:15 AM CDT Ancillary Procedure MAIN OR [address] [place] [address] Margoth Souza MD 01/02/2024 7:00 AM CDT - 01/02/2024 11:40 AM CDT Surgery MAIN OR [address] [place] [address] Margoth Souza MD ROBOTIC ASSISTED PARTIAL NEPHRECTOMY 01/02/2024 6:58 AM CDT Anesthesia Event MAIN OR [address] [place] [address] Alonzo Liu MD Majekodumi, Jessy, PAXTON 01/02/2024 5:04 AM CDT - 01/03/2024 5:05 PM CDT Hospital Encounter MAIN P09B [address] [place] [address] Margoth Souza MD Renal mass (Primary Dx) Discharge Disposition: Home 01/02/2024 Travel 12/31/2023 1:04 PM CDT - 12/31/2023 11:59 PM CDT Hospital Encounter Main CT IMAGING [address] [place] [address], 3rd [place] [address] Margoth Souza MD Renal mass Discharge Disposition: Home 12/31/2023 8:00 AM CDT Consult Endocrine Center [address] [place] [address], 6th Floor Elevator [place] [phone] Nakia Kirby APRN Khan, Sonya, MD Type 2 diabetes mellitus with hyperglycemia [E11.65] (Primary Dx); Pre-surgery evaluation 12/30/2023 9:30 AM CDT Office Visit [facility] [address] [place] [address], 7th [place] [address] Margoth Souza MD Renal mass 12/30/2023 Travel 12/30/2023 Telephone Endocrine Center [address] [place] [address], 6th [place] [address] Winnie Archibald, RN Appointment (Cannot get internet-phone broke) 12/30/2023 Orders Only [facility] [address] [place] [address], 7th [place] [address] Roberto Poole PA Renal mass (Primary Dx) 12/29/2023 Orders Only Endocrine Center [address] [place] [address], [address] [place] [address] Veronica Del Castillo APRN 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); Endocrine/metabolic screening; Renal cell carcinoma <Left side> 12/25/2023 8:36 AM CDT Anesthesia Event [facility] [address] [place] [address] Lien Antonio RN 12/23/2023 10:30 AM CDT Consult Perioperative Evaluation [facility] Management [address] [place] [address] Margoth Souza MD Oh, Jeong, MD Encounter for other preprocedural examination (Primary Dx); Renal mass; Hyperlipidemia, not otherwise specified 12/23/2023 9:00 AM CDT POEM Appointments [facility] [address] [place] [address] Margoth Souza MD Pre-surgery evaluation (Primary Dx) 12/23/2023 8:45 AM CDT - 12/23/2023 11:59 PM CDT Hospital Encounter [facility] [address] [place] [address] Margoth Souza MD Renal mass Discharge Disposition: Home 12/23/2023 Travel 12/09/2023 9:33 AM CDT - 12/09/2023 11:59 PM CDT Hospital Encounter [facility] [address] [place] [address] Veronica Del Catsillo APRN 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; Endocrine/metabolic screening Discharge Disposition: Home 12/09/2023 8:30 AM CDT Consult Endocrine Center [address] [place] [address] Mary Jane Cassidy MD 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); Endocrine/metabolic screening; Renal cell carcinoma <Left side> 12/09/2023 Travel 10/23/2023 Orders Only [facility] [address] [place] [address], [facility] [place] [address] Roberto Poole PA Renal mass (Primary Dx); Adrenal mass 10/03/2023 9:30 AM CDT - 10/03/2023 11:59 PM CDT Hospital Encounter Interventional Radiology [address] [place] [address], [facility] [place] [address] Shazia Arriaza MD McRae, Stephen, MD Renal mass Discharge Disposition: Home 10/03/2023 8:30 AM CDT - 10/03/2023 9:29 AM CDT Hospital Encounter [facility] [address] [place] [address] Margoth Souza MD Renal mass Discharge Disposition: Home 10/03/2023 Travel 10/02/2023 8:24 AM CDT - 10/02/2023 11:59 PM CDT Hospital Encounter Interventional Radiology [address] [place] [address] Margoth Souza MD Ho, ConradoRenata Horn, PAKori Encounter for other preprocedural examination (Primary Dx); Renal mass; 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 Discharge Disposition: Home 10/02/2023 Travel 09/24/2023 7:46 AM CDT - 09/24/2023 11:59 PM CDT Hospital Encounter [facility] [address] [place] [address] Roberto Poole PA Adrenal mass Discharge Disposition: Home 09/20/2023 Orders Only [facility] [address] [place] [address], [facility] [place] [address] Roberto Poole PA Adrenal mass (Primary Dx) 09/19/2023 11:45 AM CDT Ancillary Procedure [facility] Outpatient [facility] [address] [place] [address], [address] [place], [place] [address] [address] Shazia Arriaza MD Renal mass 09/19/2023 9:20 AM CDT - 09/19/2023 11:59 PM CDT Hospital Encounter [facility] [address] [place] [address] Shazia Arriaza MD Adenoma, NOS of adrenal gland, NOS <Left> Discharge Disposition: Home 09/19/2023 Orders Only Interventional Radiology [address] [place] [address], 4th [place] [address] Abilio Ng, EVANGELINA Renal mass (Primary Dx) 09/19/2023 Travel 09/19/2023 Telephone MD [facility] [address] [place] [address] Barbara Rees MA 09/16/2023 4:00 PM CDT - 09/16/2023 11:59 PM CDT Hospital Encounter [facility] [address] [place] [address] Shazia Arriaza MD Renal mass; Adrenal mass Discharge Disposition: Home 09/16/2023 2:00 PM CDT Office Visit [facility] [address] [place] [address], 7th [place] [address] Margoth Souza MD Renal mass (Primary Dx); Adrenal mass; Adenoma, NOS of adrenal gland, NOS <Left>; 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 09/16/2023 12:30 PM CDT NPR MDA PATIENT ACCESS 09/16/2023 Travel 08/08/2023 8:00 PM CDT Ancillary Procedure Image Library [address] [place] [address] Margoth Souza MD Cancer 08/08/2023 6:40 AM CDT Ancillary Procedure Image Library [address] [place] [address] Margoth Souza MD Cancer after 03/09/2023 Surgical History Surgery Date Site/Laterality Comments TOE AMPUTATION x2, 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, 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 APPENDECTOMY 05/20/1973 - 05/19/1974 Open WRIST SURGERY Left HAND SURGERY Right HIP ARTHRODESIS W/ ILIAC CREST BONE GRAFT Bilateral For hand surgeries CERVICAL SPINE SURGERY C3-6 fusion, x2 WA LAPAROSCOPY SURG PARTIAL NEPHRECTOMY 01/02/2024 Abdomen/Left Procedure: ROBOTIC ASSISTED PARTIAL NEPHRECTOMY; Surgeon: Margoth Souza MD; Location: MAIN OR; Service: UROLOGY [place] ULTRASONIC GUIDANCE INTRAOPERATIVE 01/02/2024 Left Procedure: INTROPERATIVE [...] AM CDT Appointment [facility] [address] [place] [address] Margoth Souza MD [address] [place] [address] [email or web address] 02/05/2025 11:15 AM CDT Ancillary Procedure [facility] Outpatient [facility] [address], 7th [place] [address] Margoth Souza MD [facility] [place] [address] [email or web address] 02/05/2025 12:20 PM CDT Ancillary Procedure CT Imaging [address], [facility] [place] [address] Margoth Souza MD [address] [place] [phone] [email or web address] 02/08/2025 2:30 PM CDT Telemedicine [facility] [address] [place] [address], [address] [place] [address] Margoth Souza MD [address] [place] [phone] [email or web address] Health Maintenance Due Date Last Done Comments [...] INTRAOPERATIVE US STAT 01/02/2024 7:13 AM CDT [place] ULTRASONIC GUIDANCE INTRAOPERATIVE 01/02/2024 6:08 AM CDT Renal mass Special Needs [email or web address]:Please collect and send tissue to pathology window with appropriate label. WA LAPAROSCOPY SURG PARTIAL NEPHRECTOMY 01/02/2024 6:08 AM CDT Renal mass Special Needs [email or web address]:Please collect and send tissue to pathology window [...] ABDOMEN AND PELVIS Routine 2023 7:40 AM CLOCK MA[employer]ER Cancer OSI CT BRAIN Routine 07/17/2023 7:40 AM CLOCK MAKER Cancer after 03/09/2023 Results * (ABNORMAL) Basic Metabolic Panel- Total Calcium (01/03/2024 2:59 PM CDT) Only the most recent of7 resultswithin the time period is included. eGFR 71 >=60 mL/min/1. 73 sq. m 01/03/2024 3:44 PM CDT [facility] Comment: The eGFRcr is calculated with [...] - 10.2 mg/dL 01/03/2024 3:44 PM CDT [facility] Sodium Level 139 136 - 145 mmol/L 01/03/2024 3:44 PM CDT [facility] Potassium Level 3.9 3.4 - 4.5 mmol/L 01/03/2024 3:44 PM CDT [facility] Chloride 103 98 - 107 mmol/L 01/03/2024 3:44 PM CDT [facility] CO2 28 22 - 29 mmol/L 01/03/2024 3:44 PM CDT [facility] Anion Gap 8 4 - 14 mmol/L 01/03/2024 3:44 PM CDT [facility] Creatinine 1.18(H) 0.67 - 1.17 mg/dL 01/03/2024 3:44 PM CDT [facility] BUN 15 6 - 23 mg/dL 01/03/2024 3:44 PM CDT [facility] Glucose Level 137(H) 70 - 99 mg/dL 01/03/2024 3:44 PM CDT [facility] Comment: Effective 12/14/15, the glucose reference intervals have been updated based on [place] [employer] guidelines (Standards of Medical Care [...] Alicia Mcmanus APRN LAB BLOOD ORDERABLE S [facility] Unless otherwise noted, all lab tests performed by: Division of Pathology and Laboratory Medicine [address] [place] [address] * POC Glucose Screen - Fingerstick (01/03/2024 11:19 AM CDT) Only the most recent of15 resultswithin the time period is included. Glucose Screen 70 70 - 99 mg/dL 01/03/2024 11:20 AM CDT [facility] POC Sample Type Capillary 01/03/2024 11:20 AM CDT [facility] Blood 01/03/2024 11:1 9 AM CDT 01/03/2024 11:20 AM CDT Narrative [facility] - 01/03/2024 11:20 AM CDT Capillary blood [...] Souza MD POCT ORDERABLES - DE VICE [facility] Unless otherwise noted, all lab tests performed by: Division of Pathology and Laboratory Medicine [address] [place] [address] * Zinc Transporter 8 Ab (01/03/2024 4:22 AM CDT) Zinc T8 AB <15.0 <15.0 U/mL 01/15/2024 11:18 AM CDT [facility] TIFF Comment: ADDITIONAL INFORMATION This test has been modified from the inclusion specialist's instructions. Its performance characteristics were determined by [facility] in a manner consistent with CLIA requirements. This test has not been cleared or approved by the U.S. Food and Drug Administration. Test Performed by: [place] [address] Infectious Disease Physician: Mary Jane Topete Ph.D.; CLIA# [id number] Blood Peripheral blood specimen / Unknown Venipuncture / Unknown 01/03/2024 4:22 AM CDT 01/03/2024 4:55 AM CDT Alicia Mcmanus APRN LAB BLOOD ORDERABLE S [facility] * Islet Antigen 2 (IA-2) Antibody (01/03/2024 4:22 AM CDT) Pathologist [facility] IA-2 Antibody 0.00 <=0.02 nmol/L 01/07/2024 12:20 AM CDT [facility] TIFF Comment: ADDITIONAL INFORMATION This test was developed and its performance characteristics determined by [facility] in a manner consistent with CLIA requirements. This test has not been cleared or approved by the U.S. Food and Drug Administration. Test Performed by: [place] [address] Infectious Disease Physician: Mary Jane Topete Ph.D.; CLIA# [id number] Blood Peripheral blood specimen / Unknown Venipuncture / Unknown 01/03/2024 4:22 AM CDT 01/03/2024 4:55 AM CDT Alicia Mcmanus APRN LAB BLOOD ORDERABLE S Performing Organization Address [facility] de Phone Number [facility] * GREG Ab Assay (01/03/2024 4:22 AM CDT) GAD65 Ab-[place] 0.00 <=0.02 nmol/L 01/07/2024 12:01 AM CDT [facility] TIFF Comment: ADDITIONAL INFORMATION This test was developed and its performance characteristics determined by [facility] in a manner consistent with CLIA requirements. This test has not been cleared or approved by the U.S. Food and Drug Administration. Test Performed by: [place] [address] Infectious Disease Physician: Mary Jane Topete Ph.D.; CLIA# [id number] Blood Peripheral blood specimen / Unknown Venipuncture / Unknown 01/03/2024 4:22 AM CDT 01/03/2024 4:55 AM CDT Alicia Mcmanus APRN LAB BLOOD ORDERABLE S Performing Organization Address [facility] de Phone Number [facility] * Insulin Ab (01/03/2024 4:22 AM CDT) Insulin Ab-[place] 0.00 0.00 - 0.02 nmol/L 01/06/2024 5:14 PM CDT [facility] TIFF Comment: ADDITIONAL INFORMATION This test was developed and its performance characteristics determined by [facility] in a manner consistent with CLIA requirements. This test has not been cleared or approved by the U.S. Food and Drug Administration. Test Performed by: [facility] - [address] [address] Infectious Disease Physician: Mary Jane Topete Ph.D.; CLIA# [id number] Blood Peripheral blood specimen / Unknown Venipuncture / Unknown 01/03/2024 4:22 AM CDT 01/03/2024 4:55 AM CDT Alicia Mcmanus APRN LAB BLOOD ORDERABLE S [facility] * C Peptide (01/03/2024 4:22 AM CDT) Pathologist [facility] C-Peptide 2.12 1.10 - 4.40 ng/mL 01/03/2024 5:48 AM CDT [facility] Blood Peripheral blood specimen / Unknown Venipuncture / Unknown 01/03/2024 4:22 AM CDT 01/03/2024 4:55 AM CDT Alicia Mcmanus APRN LAB BLOOD ORDERABLE S [facility] Unless otherwise noted, all lab tests performed by: Division of Pathology and Laboratory Medicine [address] [place] [address] * (ABNORMAL) Hemogram (01/02/2024 7:20 PM CDT) White Blood Cell 13.8(H) 4.1 - 10.5 K/uL 01/02/2024 7:33 PM CDT [facility] Red Blood Cell 4.74 4.30 - 6.04 M/uL 01/02/2024 7:33 PM CDT [facility] Hemoglobin 12.2(L) 13.3 - 17.4 g/dL 01/02/2024 7:33 PM CDT [facility] Hematocrit 38.6(L) 39.5 - 51.8 % 01/02/2024 7:33 PM CDT [facility] Mean Cell Volume 81(L) 82 - 99 fL 01/02/2024 7:33 PM CDT [facility] Mean Cell Hemoglobin 25.7(L) 26.6 - 33.2 pg 01/02/2024 7:33 PM CDT [facility] Mean Cell Hemoglobin Concentration 31.6 31.1 - 35.2 g/dL 01/02/2024 7:33 PM CDT [facility] RDW-SD 39.1 37.5 - 49.7 fL 01/02/2024 7:33 PM CDT [facility] Red Cell Diameter Width 13.1 11.6 - 15.5 % 01/02/2024 7:33 PM CDT [facility] Platelet 291 160 - 397 K/uL 01/02/2024 7:33 PM CDT [facility] Mean Platelet Volume 9.7 9.1 - 12.6 fL 01/02/2024 7:33 PM CDT [facility] INRBC 0.0 0.0 - 0.1 /100 WBC 01/02/2024 7:33 PM CDT [facility] Comment: The INRBC (instrument NRBC) value [...] CDT Arianocent Linda PRICE LAB BLOOD ORDERABLES [facility] Unless otherwise noted, all lab tests performed by: Division of Pathology and Laboratory Medicine [address] [place] [address] * (ABNORMAL) Beta Hydroxy Quant (01/02/2024 7:20 PM CDT) Only the most recent of2 resultswithin the time period is included. Beta-Hydroxybuty rate 0.85(H) 0.02 - 0.27 mmol/L 01/02/2024 8:01 PM CDT [facility] Is patient fasting? No 01/02/2024 8:01 PM CDT [facility] Comment:A fasting specimen i s recommended and results obtained from non-fasting specimens should be interpreted with caution using reference ranges based on fasting status and in conjunction with clinical context. Blood Peripheral blood specimen / Unknown Venipuncture / Unknown 01/02/2024 7:20 PM CDT 01/02/2024 7:24 PM CDT Narrative [facility] - 01/02/2024 8:01 PM CDT Reference range based on fasting. Alicia Mcmanus APRN LAB BLOOD ORDERABLE S [facility] Unless otherwise noted, all lab tests performed by: Division of Pathology and Laboratory Medicine [address] [place] [address] * (ABNORMAL) .CBC (01/02/2024 12:19 PM CDT) Only the most recent of3 resultswithin the time period is included. White Blood Cell 11.6(H) 4.1 - 10.5 K/uL 01/02/2024 12:39 PM CDT [facility] Red Blood Cell 4.71 4.30 - 6.04 M/uL 01/02/2024 12:39 PM CDT [facility] Hemoglobin 12.4(L) 13.3 - 17.4 g/dL 01/02/2024 12:39 PM CDT [facility] Hematocrit 38.1(L) 39.5 - 51.8 % 01/02/2024 12:39 PM CDT [facility] Mean Cell Volume 81(L) 82 - 99 fL 01/02/2024 12:39 PM CDT [facility] Mean Cell Hemoglobin 26.3(L) 26.6 - 33.2 pg 01/02/2024 12:39 PM CDT [facility] Mean Cell Hemoglobin Concentration 32.5 31.1 - 35.2 g/dL 01/02/2024 12:39 PM CDT [facility] RDW-SD 39.0 37.5 - 49.7 fL 01/02/2024 12:39 PM CDT [facility] Red Cell Diameter Width 13.3 11.6 - 15.5 % 01/02/2024 12:39 PM CDT [facility] Platelet 305 160 - 397 K/uL 01/02/2024 12:39 PM CDT [facility] Mean Platelet Volume 9.7 9.1 - 12.6 fL 01/02/2024 12:39 PM CDT [facility] INRBC 0.0 0.0 - 0.1 /100 WBC 01/02/2024 12:39 PM CDT [facility] Comment: The INRBC (instrument NRBC) value reflects the enumeration of nucleated red blood cells contained in a 200uL sample of whole blood analyzed by the instrument. This value may differ from the NRBC value reported in a manual differential, which is based on a 100 cell differential. Neutrophil % 90.6(H) 43.2 - 72.7 % 01/02/2024 12:39 PM CDT [facility] Lymphocyte % 6.8(L) 16.8 - 46.2 % 01/02/2024 12:39 PM CDT [facility] Monocyte % 1.9(L) 5.1 - 12.5 % 01/02/2024 12:39 PM CDT [facility] Eosinophil % 0.1(L) 0.4 - 6.3 % 01/02/2024 12:39 PM CDT [facility] Basophil % 0.3 0.2 - 1.4 % 01/02/2024 12:39 PM CDT [facility] IGRE % 0.3 0.1 - 1.5 % 01/02/2024 12:39 PM CDT [facility] Comment:The IGRE% includes M etamyelocytes, Myelocytes and Promyelocytes. Neutrophil Abs 10.48(H) 1.95 - 7.25 K/uL 01/02/2024 12:39 PM CDT [facility] Lymphocyte Abs 0.79(L) 1.01 - 3.24 K/uL 01/02/2024 12:39 PM CDT [facility] Monocyte Abs 0.22(L) 0.24 - 0.85 K/uL 01/02/2024 12:39 PM CDT [facility] Eosinophil Abs 0.01(L) 0.02 - 0.50 K/uL 01/02/2024 12:39 PM CDT [facility] Basophil Abs 0.03 0.02 - 0.09 K/uL 01/02/2024 12:39 PM CDT [facility] IG Abs 0.03 0.01 - 0.12 K/uL 01/02/2024 12:39 PM CDT [facility] Blood Peripheral blood specimen / Unknown Venipuncture / Unknown 01/02/2024 12:19 PM CDT 01/02/2024 12:33 PM CDT Hakan Nagy MD LAB BLOOD ORDERABLES [facility] Unless otherwise noted, all lab tests performed by: Division of Pathology and Laboratory Medicine [address] [place] [id number] * Pathology Surgical Interpretation (01/02/2024 10:42 AM CDT) Submitted Clinical History Renal mass [N28.89] 01/22/2024 10:13 PM CDT [facility] Diagnosis A: Perinephric fat, resection: Fibroadipose tissue, negative for tumor. B: Kidney, left, hilar mass, partial nephrectomy: RENAL CELL CARCINOMA, CLEAR CELL TYPE. (SEE CAP PROTOCOL) [place] thrombus in a branch of renal vein. (See comment) PXT/FHH 01/22/2024 10:13 PM CDT [facility] Comment The thrombus in the branch of the renal vein does not have any epithelial cells, which is confirmed by Cytokeratin cocktail and PAX8 immunohistochemical stains (on blocks B2 and B9). 01/22/2024 10:13 PM CDT [facility] Synoptic Checklist KIDNEY: Nephrectomy KIDNEY: [...] apparent mass lesional lymph node grossly identified. Aviation Safety Technician section in A1. PB B: Kidney, left, [...] in B8-B9 PB 01/22/2024 10:13 PM CDT [facility] Biomarker Block(s) Tumor: B8 Normal: A1 01/22/2024 10:13 PM CDT [facility] Disclaimer "Some tests reported here may have been developed and performance characteristics determined by [facility] Pathology [facility] Laboratory Medicine. These tests have not been specifically cleared or approved by the U.S. Food and Drug Administration. If applicable, controls were reviewed and showed appropriate reactivity." 01/22/2024 10:13 PM CDT [facility] Tissue (Perinephric Fat) 01/02/2024 10:42 AM CDT 01/02/2024 11:03 AM CDT Tissue specimen (specimen) (Kidney, Left) 01/02/2024 10:43 AM CDT 01/02/2024 11:03 AM CDT Margoth Souza MD LAB PATHOLOGY ORDERA BLES [facility] [address] [place] [address], [place] * (ABNORMAL) ABG+ (ABG, Na, K, Cl, Glu, Hgb, Hct, Lactate, Ion Ca) (01/02/2024 10:38 AM CDT) Only the most recent of2 resultswithin the time period is included. Sodium Arterial 140 136 - 146 mmol/L 01/02/2024 10:44 AM [facility] Potassium Arterial 3.7 3.4 - 4.5 mmol/L 01/02/2024 10:44 AM [facility] Chloride Arterial 103 98 - 106 mmol/L 01/02/2024 10:44 AM [facility] Glucose Arterial 270(H) 70 - 105 mg/dL 01/02/2024 10:44 AM [facility] Hgb Art 12.9(L) 13.5 - 17.5 g/dL 01/02/2024 10:44 AM [facility] Hematocrit Arterial 40(L) 42 - 52 % 01/02/2024 10:44 AM [facility] Lactate Arterial 1.0(H) 0.4 - 0.8 mmol/L 01/02/2024 10:44 AM [facility] Calcium Ionized Arterial 1.14(L) 1.15 - 1.29 mmol/L 01/02/2024 10:44 AM [facility] pH Arterial 7.35 7.35 - 7.45 01/02/2024 10:44 AM [facility] P CO2 Arterial 42.9 35.0 - 48.0 mmHg 01/02/2024 10:44 AM [facility] P O2 Arterial 164(H) 83 - 108 mmHg 01/02/2024 10:44 AM [facility] Bicarbonate Arterial 24 21 - 28 mmol/L 01/02/2024 10:44 AM [facility] WB Anion Gap 13 7 - 16 mmol/L 01/02/2024 10:44 AM [facility] Base Excess Arterial -2 -2 - 3 mmol/L 01/02/2024 10:44 AM [facility] Oxygen Saturation Arterial 99 95 - 99 % 01/02/2024 10:44 AM [facility] Oxygen FLOW Rate/ FiO2 01/02/2024 10:44 AM [facility] O2 Therapy 01/02/2024 10:44 AM CDT [facility] Art Kirill Test Not Applicable (Arterial Line Draw) 01/02/2024 10:44 AM CDT [facility] Blood Arterial blood specimen / Unknown Arterial Line / Unknown 01/02/2024 10:38 AM CDT 01/02/2024 10:41 AM CDT Narrative [facility] - 01/02/2024 10:44 AM CDT The ABL90 [...] 0.0301. Alonzo Liu MD LAB BLOOD ORDERABLES [facility] Unless otherwise noted, all lab tests performed by: Division of Pathology and Laboratory Medicine [address] [place] [id number] * Intraoperative Ultrasound - For Image Storage [...] Exp Date (12/23/2023 8:51 AM CDT) Pathologist [facility] PREOP EXP DATE 01/22/2024 12/23/2023 2:19 PM CDT [facility] Blood Peripheral blood specimen / Unknown Venipuncture / Unknown 12/23/2023 8:51 AM CDT 12/23/2023 9:00 AM CDT Margoth Souza MD BLOOD BANK TEST KATYRay FRANKLINJARON [facility] [address] [place] [address] [address] [place] [address] * Preop Updated Expiration (12/23/2023 8:51 AM CDT) Pathologist [facility] PREOP STATUS 01/02/2024 11:33 PM CDT [facility] PREOP EXP DATE 01/02/2024 01/02/2024 11:33 PM CDT [facility] Blood Peripheral blood specimen / Unknown Venipuncture / Unknown 12/23/2023 8:51 AM CDT 12/23/2023 9:00 AM CDT Margoth Souza MD BLOOD BANK TEST ORDRay ANA [facility] [address] [place] [address] [place] [address] * (ABNORMAL) Urinalysis with Reflex Culture (12/23/2023 8:51 AM CDT) Only the most recent of2 resultswithin the time period is included. Pathologist [facility] Urine Appearance Clear Clear 12/23/19 9:33 AM T [facility] Urine Color Straw Colorless, Straw, Yellow, Dark Yellow, Straw-Yellow 12/23/2023 9:33 AM T [facility] Urine Specific [place] 1.032 1.003 - 1.035 12/23/2023 9:33 AM [facility] Urine pH 6.0 5.0 - 8.0 12/23/2023 9:33 AM T [facility] Urine Glucose >=1000(A) Negative mg/dL 12/23/2023 9:33 AM T [facility] Urine Ketones Negative Negative mg/dL 12/23/2023 9:33 AM T [facility] Urine Blood Negative Negative 12/23/2023 9:33 AM T [facility] Urine Protein 30(A) Negative mg/dL 12/23/2023 9:33 AM T [facility] Urine Bilirubin Negative Negative 9:33 AM T [facility] Urine Urobilinogen Negative Negative 12/23/2023 9:33 AM [facility] Urine Nitrite Negative Negative 12/23/2023 9:33 AM [facility] Urine Leukocyte Esterase Negative Negative 12/23/2023 9:33 AM [facility] Urine Mucous Not Seen Not Seen, Trace /HPF 12/23/2023 9:33 AM [facility] Urine Bacteria Not Seen Not Seen /HPF 12/23/2023 9:33 AM T [facility] Urine Squamous Epithelial Cells OCC Not Seen, OCC, Rare /HPF 12/23/2023 9:33 AM [facility] Urine WBC <1 <=2 /HPF 12/23/2023 9:33 AM [facility] Urine RBC 1 <=2 /HPF 12/23/2023 9:33 AM [facility] Urine Voided urine specimen / Unknown Non-blood Collection / Unknown 12/23/2023 8:51 AM CDT 12/23/2023 9:10 AM CDT [facility] - 12/23/2023 9:33 AM CDT Some reporting parameters within the Urinalysis test have changed due to the implementation of new instrumentation in the Main [place], allowing greater sensitivity of measurement. Urinalysis results reported by the [facility] using existing instrumentation, as well as Urinalysis testing performed manually or by back-up methodology at the main campus, will remain relatively unchanged. New reporting parameters and units will now be reported for all campuses. Margoth Souza MD URINE ORDERABLES Performing Organization Address City/[facility]/ZIP Co de Phone Number [facility] Unless otherwise noted, all lab tests performed by: Division of Pathology and Laboratory Medicine [address] [place] [id number] * 30-Day Pre-Op Type and Screen (12/23/2023 8:51 AM CDT) Only the most recent of2 resultswithin the time period is included. ABORh O POS 12/23/2023 8:45 AM CDT [facility] ABSC Negative 12/23/2023 8:45 AM CDT [facility] BB Criteria Met Criteria met 12/23/2023 8:45 AM CDT [facility] Historical Record Check Complete 12/23/2023 8:45 AM CDT [facility] Blood Peripheral blood specimen / Unknown Venipuncture / Unknown 12/23/2023 8:51 AM CDT 12/23/2023 9:00 AM CDT Margoth Souza MD BLOOD BANK TEST ORDE RABLES Performing Organization Address City/[facility]/ZIP Co de Phone Number [facility] [address] [place] [address] [address] [place] [address] * TMP Interpretation Exception PreOp Expiration (12/23/2023 8:51 AM CDT) Only the most recent of2 resultswithin the time period is included. TMP Exception 12/24/2023 10:47 AM CDT [facility] TMP Signature . 12/24/2023 10:47 AM CDT [facility] Blood Peripheral blood specimen / Unknown Venipuncture / Unknown 12/23/2023 8:51 AM CDT 12/23/2023 9:00 AM CDT Margoth Souza MD BLOOD BANK TEST ORDE ANA [facility] [address] [place] [address] * (ABNORMAL) Comprehensive Metabolic Panel (12/23/2023 8:51 AM CDT) Only the most recent of2 resultswithin the time period is included. Bilirubin Total 0.3 0.0 - 1.2 mg/dL 12/23/2023 9:41 AM CDT [facility] Comment:Indocyanine Green (I CG) may cause falsely elevated bilirubin results. Total and direct bilirubin must not be measured from samples containing indocyanine green. False elevation of total bilirubin can be seen in patients with IgG concentrations above 28 g/L. eGFR 75 >=60 mL/min/1. 73 sq. m 12/23/2023 9:41 AM CDT [facility] Comment: The eGFRcr is calculated [...] 6.4 - 8.3 gm/dL 12/23/2023 9:41 AM [facility] Calcium Level Total 9.9 8.2 - [...] reference intervals have been updated based on [place] [employer] guidelines (Standards of Medical Care [...] MD LAB BLOOD ORDERABLES Performing Organization Address [facility] de Phone Number [facility] Unless otherwise noted, all lab tests performed by: Division of Pathology and Laboratory Medicine [address] [place] [address] * (ABNORMAL) Hemoglobin A1c (12/23/2023 8:51 AM CDT) Only the most recent of2 resultswithin the time period is included. [facility] Hemoglobin A1c 9.7(H) 4.3 - 5.6 % 12/23/2023 9:34 AM CDT [facility] Blood Peripheral blood specimen / Unknown Venipuncture / Unknown 12/23/2023 8:51 AM CDT 12/23/2023 9:00 AM CDT Narrative [facility] - 12/23/2023 9:34 AM CDT HbA1c values >=6.5% are diagnostic of diabetes mellitus. Diagnosis should be confirmed by repeat testing. Therapeutic Action suggested: >8.0% HbA1c; Goal of therapy: <7.0% HbA1c Margoth Souza MD LAB BLOOD ORDERABLES Performing Organization Address [facility] de Phone Number [facility] Unless otherwise noted, all lab tests performed by: Division of Pathology and Laboratory Medicine [address] [place] [address] * ACTH (12/09/2023 9:45 AM CDT) Only the most recent of2 resultswithin the time period is included. Pathologist [facility] ACTH 22 7 - 63 pg/mL 12/09/2023 12:19 PM CDT [facility] Blood Peripheral blood specimen / Unknown Venipuncture / Unknown 12/09/2023 9:45 AM CDT 12/09/2023 9:52 AM CDT Narrative [facility] - 12/09/2023 12:19 PM CDT Reference range established based on adult population (7 - 10am draws). No established reference values for p.m. draws. Results greater than 1826 pg/mL may not be reliable due to matrix effect with extended dilution as it exceeds the inclusion specialist's recommended limit. ACTH reference intervals are established for the morning hours from 7-10 am. Due to the circadian rhythm of ACTH levels in plasma, the sample collection time must be noted. Caution should be exercised when interpreting such values and done in conjunction with clinical context. Veronica Del Castillo SALES COACH LAB BLOOD ORDERABL ES [facility] Unless otherwise noted, all lab tests performed by: Division of Pathology and Laboratory Medicine [address] [place] [address] * DHEA Sulfate (12/09/2023 9:45 AM CDT) Pathologist [facility] DHEAS-[place] [address] 20 - 299 mcg/dL 12/10/2023 12:10 PM CDT [facility] Comment: Test Performed by: [facility] [address] [place] [address] Infectious Disease Physician: Mary Jane Topete Ph.D.; CLIA# [id number] Blood Peripheral blood specimen / Unknown Venipuncture / Unknown 12/09/2023 9:45 AM CDT 12/09/2023 9:56 AM CDT [facility] SALES COACH LAB BLOOD ORDERABL ES [facility] * Cortisol, Total (12/09/2023 9:45 AM CDT) Only the most recent of4 resultswithin the time period is included. Pathologist [facility] Cortisol 11.39 4.82 - 19.50 mcg/dL 12/09/2023 11:00 AM CDT [facility] Blood Peripheral blood specimen / Unknown Venipuncture / Unknown 12/09/2023 9:45 AM CDT 12/09/2023 9:55 AM CDT Narrative [facility] - 12/09/2023 11:00 AM CDT Cortisol reference [...] Veronica OrtaMónica MARIE LAB BLOOD ORDERABL ES [facility] Unless otherwise noted, all lab tests performed by: Division of Pathology and Laboratory Medicine [address] [place] [address] * IR CT GUIDED BIOPSY RENAL (10/03/2023 10:27 AM CDT) Anatomical Region Laterality Modality Abdomen/Pelvis, Organ (liver/spleen/kidney) Computed Tomography Narrative 10/04/2023 9:03 AM CDT Table formatting from the original result was not included. Date of Procedure: 10/03/23 Attending Physician: Kumar Comer MD Collection Specialist: None Pre Procedure Diagnosis: Renal mass Post [...] with Interventional Radiology required. Shazia Arriaza MD [facility] IR ORDERABLES * Pathology Biopsy Interpretation (10/03/2023 10:19 AM CDT) Submitted Clinical History Renal mass [N28.89] 10/04/2023 9:52 AM CDT [facility] Diagnosis A: Kidney, left, biopsy: RENAL CELL CARCINOMA, CLEAR CELL TYPE, ISUP/WHO NUCLEAR GRADE 1. CCG/FGT 10/04/2023 9:52 AM CDT [facility] Gross Description A: Kidney, left, left kidney: Multiple soft castillo-brown tissue cores and core fragments, less than 0.1 cm - 0.2 cm in length and up to 0.1 cm in diameter, entirely submitted in A1. ET 10/04/2023 9:52 AM CDT [facility] Biomarker Block(s) Tumor: A1 10/04/2023 9:52 AM CDT [facility] Disclaimer "Some tests reported here may have been developed and performance characteristics determined by [facility]. These tests have not been specifically cleared or approved by the U.S. Food and Drug Administration. If applicable, controls were reviewed and showed appropriate reactivity." 10/04/2023 9:52 AM CDT [facility] Tissue (Kidney, Left) 10/03/2023 10:19 AM CDT 10/03/2023 12:29 PM CDT Shazia Arriaza MD LAB PATHOLOGY ORDE ANA [facility] [address] [place] [address], * Prothrombin Time (10/03/2023 9:27 AM CDT) Prothrombin Time 12.6 11.9 - 14.5 second(s) 10/03/2023 9:57 AM CDT [facility] International Normalization Ratio 0.98 0.87 - 1.12 10/03/2023 9:57 AM CDT [facility] Blood Peripheral blood specimen / Unknown Venipuncture / Unknown 10/03/2023 9:27 AM CDT 10/03/2023 9:28 AM CDT Abilio Ng PA-C LAB BLOOD ORDERABL ES [facility] [address] [facility] [place] [address] * Type and Screen (10/03/2023 9:27 AM CDT) ABORh O POS 10/03/2023 9:17 AM CDT [facility] ABSC Negative 10/03/2023 9:17 AM CDT [facility] Clot Expiration 10/06/2023 23:59 10/03/2023 9:17 AM CDT [facility] Historical Record Check Complete 10/03/2023 9:17 AM CDT [facility] Blood Peripheral blood specimen / Unknown Venipuncture / Unknown 10/03/2023 9:27 AM CDT 10/03/2023 9:52 AM CDT Abilio Ng PA-C BLOOD BANK TEST OR DERABLES [facility] [address] [facility] [address] [place] [address] * X-ray Chest 2 Views (09/19/2023 9:24 [...] Metanephrines Fractionated (09/16/2023 4:24 PM CDT) Pathologist [facility] Normetane Free-[place] 0.43 <0.90 nmol/L 09/19/2023 2:59 PM CDT [facility] Metanephr Free-[place] <0.20 <0.50 nmol/L 09/19/2023 2:59 PM CDT [facility] Comment: ADDITIONAL INFORMATION This test was developed and its performance characteristics determined by [facility] in a manner consistent with CLIA requirements. This test has not been cleared or approved by the U.S. Food and Drug Administration. Test Performed by: [facility] [place] [address] Infectious Disease Physician: Scot Skelton M.D. Ph.D.; CLIA# [id number] Blood Peripheral blood specimen / Unknown Venipuncture / Unknown 09/16/2023 4:24 PM CDT 09/16/2023 4:41 PM CDT Shazia Arriaza MD LAB BLOOD ORDERABL ES [facility] * Hepatitis C Virus Antibody (09/16/2023 4:24 PM CDT) Pathologist [facility] HCVAb. Non Reactive Non Reactive 09/17/2023 9:11 AM CDT [facility] Blood Peripheral blood specimen / Unknown Venipuncture / Unknown 09/16/2023 4:24 PM CDT 09/16/2023 4:41 PM CDT Narrative [facility] - 09/17/2023 9:11 AM CDT Antibody detection in the immunocompromised and immunosuppressed population may be delayed or absent entirely. Therefore serial testing, correlation with other clinical findings, and supplemental testing (if available) should be taken into consideration when interpreting the results. Shazia Arriaza MD LAB BLOOD ORDERABL ES Performing Organization Address City/[facility]/ZIP Co de Phone Number [facility] Unless otherwise noted, all lab tests performed by: Division of Pathology and Laboratory Medicine [address] [place] [address] * Aldosterone Level (09/16/2023 4:24 PM CDT) [facility] 8.1 <=21 ng/dL 09/20/2023 1:02 AM CDT [facility] Comment: ADDITIONAL INFORMATION Reference range for patients 11 years and older is based on upright A.M. collection from subjects without sodium restrictions. This test was developed and its performance characteristics determined by [facility] in a manner consistent with CLIA requirements. This test has not been cleared or approved by the U.S. Food and Drug Administration. Test Performed by: [facility] - [address] [address] Infectious Disease Physician: Scot Skelton M.D. Ph.D.; CLIA# [id number] Blood Peripheral blood specimen / Unknown Venipuncture / Unknown 09/16/2023 4:24 PM CDT 09/16/2023 4:41 PM CDT Shazia Arriaza MD LAB BLOOD ORDERABL ES Performing Organization Address City/[facility]/ZIP Co de Phone Number [facility] * Renin Activity (09/16/2023 4:24 PM CDT) [facility] Renin Activity-[place] 4.3 ng/mL/h 09/19 3:42 PM CDT [facility] Comment: REFERENCE VALUE (Peripheral vein specimen) Na-deplete, upright: Mean: 5.9 Range: 2.9-10.8 Na-replete, upright: Mean: 1.0 Range: < or =0.6-3.0 ADDITIONAL INFORMATION Testing performed by Liquid Chromatography-Tandem Mass Spectrometry (LC-MS/MS). This test was developed and its performance characteristics determined by [facility] in a manner consistent with CLIA requirements. This test has not been cleared or approved by the U.S. Food and Drug Administration. Test Performed by: [place] [address] Infectious Disease Physician: Scot Skelton M.D. Ph.D.; CLIA# [id number] Blood Peripheral blood specimen / Unknown Venipuncture / Unknown 09/16/2023 4:24 PM CDT 09/16/2023 4:41 PM CDT Shazia Arriaza MD LAB BLOOD ORDERABL ES Performing Organization Address City/[facility] Co de Phone Number [facility] * Urine Culture (09/16/2023 4:24 PM CDT) [facility] Urine Culture Normal site mirna present. Generally of low significance. Correlate with clinical data and culture history. 09/18/2023 8:31 AM CDT [facility] Urine Voided urine specimen / Unknown Non-blood Collection / Unknown 09/16/2023 4:24 PM CDT 09/16/2023 4:41 PM CDT Shazia Arriaza MD MICROBIOLOGY - GEN ERAL ORDERABLES [facility] Unless otherwise noted, all lab tests performed by: Division of Pathology and Laboratory Medicine [address] [place] [address] * TSH (09/16/2023 4:24 PM CDT) [facility] Thyroid Stimulating Hormone 1.43 0.27 - 4.20 mcunit/mL 09/16/2023 5:23 PM CDT [facility] Blood Peripheral blood specimen / Unknown Venipuncture / Unknown 09/16/2023 4:24 PM CDT 09/16/2023 4:41 PM CDT Shazia Arriaza MD LAB BLOOD ORDERABL ES Performing Organization Address City/[facility]/ZIP Co de Phone Number [facility] [address] [facility] [place] [address] * T4 (09/16/2023 4:24 PM CDT) Pathologist [facility] Thyroxine 7.0 4.5 - 11.7 mcg/dL 09/16/2023 5:55 PM CDT [facility] Blood Peripheral blood specimen / Unknown Venipuncture / Unknown 09/16/2023 4:24 PM CDT 09/16/2023 4:41 PM CDT Shazia Arriaza MD LAB BLOOD ORDERABL ES Performing Organization Address City/[facility]/ZIP Co de Phone Number [facility] Unless otherwise noted, all lab tests performed by: Division of Pathology and Laboratory Medicine [address] [place] [address] * Confirm ABORh (09/16/2023 4:23 PM CDT) Pathologist [facility] ABORh Confirm O POS 09/16/2023 4:15 PM CDT [facility] Blood Peripheral blood specimen / Unknown Venipuncture / Unknown 09/16/2023 4:23 PM CDT 09/16/2023 4:41 PM CDT Shazia Arriaza MD BLOOD BANK TEST OR DERABLES [facility] [address] [facility] [address] [place] [address] * OSI CT Abdomen and Pelvis (07/18/2023 7:40 AM CLOCK MAKER) Narrative Systemgenerated, Documentation - 08/08/2023 7:40 AM CDT Study acquired at another institution. For comparison only. No MD Gimenez originated interpretation requested or available. Margoth Souza MD IMG OUTSIDE IMAGE OR DERABLES * OSI CT Brain (07/17/2023 7:40 AM CLOCK MAKER) Narrative Systemgenerated, Documentation - 08/08/2023 7:40 AM CDT Study acquired at another institution. For comparison only. No MD Gimenez originated interpretation requested or available. Margoth Souza MD IMG OUTSIDE IMAGE OR DERABLES after 03/09/2023 Advance Directives * Full Code (Latest Code Status on File) Date Activated Date Inactivated Comments 01/02/2024 1:48 PM 01/03/2024 7:17 PM Care Teams Solution Coordinator Relationship Specialty Start Date End Date Margoth Souza MD [address] [place] [address] [email or web address] - General Urology 07/30/23 Mary Jane Cassidy MD [address] [place] [id number] [email or web address] Consulting Physician Endocrinology 12/09/23 Barry He MD [address] [place] [id number] [email or web address] Consulting Physician Internal Medicine 12/23/23 Patience Hunt MD [address] [place] [id number] [email or web address] Consulting Physician Endocrinology 12/31/23
[2024-03-08] MEDS ORDERED: ONDANSETRON 4 MG/2 ML VIAL ONE (07:03)
[2024-03-08] MEDS ORDERED: NA CHLORIDE 0.9% 1,000 ML ONE (07:04)
[2024-03-08 07:16] LABS: Absolute Basophils 0.1 K/uL (0-0.5); Absolute Eosinophils 0.2 K/uL (0-0.5); Absolute Lymphocytes (CBC) 1.6 K/uL (0.7-4.9); Absolute Monocytes 0.5 K/uL (0.1-1.3); Absolute Neutrophil 3.4 K/uL (1.8-8.0); Basophils % 1.4 % (0-1.3); Eosinophils % 3.5 % (0-4.4); Hematocrit 37.3 % (39.6-49.0); MCH 25.3 pg (27.0-35.0); MCHC 32.2 g/dL (32.0-36.0); MCV 78.5 fL (80-100); MPV 7.5 fL (7.6-11.3); Monocytes % 8.8 % (3.3-12.3); Neutrophils % 59.3 % (41.7-73.7); Platelets 363 thou/uL (152-406); RBC Red Blood Cell Count 4.75 M/uL (4.33-5.43); Red Cell Distribution Width 15.8 % (12.1-15.2)
[2024-03-08 07:21] LABS: Sqamous Epithelial <5 /HPF (None Seen); Transitional Epithelial <5 /HPF (None Seen); Urine Bacteria None Seen /HPF (<20); Urine Bilirubin NEGATIVE (Negative); Urine Blood Negative (Negative); Urine Clarity Clear (Clear); Urine Color Colorless (Yellow); Urine Culture Reflex Order NOT NEEDED; Urine Glucose 4+ (Over) (Negative); Urine Ketones NEGATIVE (Negative); Urine Microscopic Reflex YN ORDER UMIC; Urine Nitrite NEGATIVE (Negative); Urine Protein TRACE (Negative); Urine RBC <5 /HPF (None Seen); Urine Urobilinogen Normal (Normal); Urine WBC <5 /HPF (<5); Urine pH 6.5 (5.0-7.0)
[2024-03-08 07:36] LABS: Albumin 3.5 g/dL (3.4-5.0); Albumin/Globulin Ratio 0.8 (1.1-1.8); Anion Gap 9.2 mEq/L (5.0-15.0); Bilirubin Total 0.3 mg/dL (0.2-1.0); Globulin 4.4 g/dL (2.3-3.5); Potassium 3.2 mEq/L (3.5-5.1); Protein, Total 7.9 g/dL (6.4-8.2)
--- NOTE | 2024-03-08 07:57 | EDPHYS ---
Physician Documentation [facility] Name: Zeke Mackay Sr Age: 59 yrs Sex: Male : 1965 Arrival Date: 03/08/2024 Time: 06:33 Bed 8 Private MD: RAVIN Physician Rashi Gimenez HPI: 03/08 07:24 This 59 yrs old Male presents to ER via Ambulatory with complaints of shandra Nausea/Vomiting. 07:24 The patient presents to the emergency department with nausea, vomiting, that is shandra intermittent. Onset: The symptoms/episode began/occurred just prior to arrival, this morning, today. Possible causes: unknown. The symptoms are aggravated by nothing. The symptoms are alleviated by nothing. Severity of symptoms: At their worst the symptoms were moderate in the emergency department the symptoms are unchanged. The patient has experienced similar episodes in the past, several times. 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 - Infectious Disease History:: Denies. - Social history:: Smoking status: Patient denies any tobacco usage or history of. Patient uses street drugs, marijuana. - Family history:: not pertinent. ROS: 07:24 Constitutional: Negative for fever, chills, and weight loss, Eyes: Negative for injury, shandra pain, redness, and discharge, ENT: Negative for injury, pain, and discharge, Neck: Negative for injury, pain, and swelling, Cardiovascular: Negative for chest pain, palpitations, and edema, Respiratory: Negative for shortness of breath, cough, wheezing, and pleuritic chest pain, Back: Negative for injury and pain, : Negative for injury, bleeding, discharge, and swelling, MS/Extremity: Negative for injury and deformity, Skin: Negative for injury, rash, and discoloration, Neuro: Negative for headache, weakness, numbness, tingling, and seizure, Psych: Negative for depression, anxiety, suicide ideation, homicidal ideation, and hallucinations, Allergy/Immunology: Negative for hives, rash, and allergies, Endocrine: Negative for neck swelling, polydipsia, polyuria, polyphagia, and marked weight changes, Hematologic/Lymphatic: Negative for swollen nodes, abnormal bleeding, and unusual bruising, 07:24 Abdomen/GI: Positive for nausea and vomiting, Exam: 07:24 Constitutional: This is a well developed, well nourished patient who is awake, alert, shandra and in no acute distress. Head/Face: Normocephalic, atraumatic. Eyes: Pupils equal round and reactive to light, extra-ocular motions intact. Lids and lashes normal. Conjunctiva and sclera are non-icteric and not injected. Cornea within normal limits. Periorbital areas with no swelling, redness, or edema. ENT: Nares patent. No nasal discharge, no septal abnormalities noted. Tympanic membranes are normal and external auditory canals are clear. Oropharynx with no redness, swelling, or masses, exudates, or evidence of obstruction, uvula midline. Mucous membranes moist. Neck: Trachea midline, no thyromegaly or masses palpated, and no cervical lymphadenopathy. Supple, full range of motion without nuchal rigidity, or vertebral point tenderness. No Meningismus. Chest/axilla: Normal chest wall appearance and motion. Nontender with no deformity. No lesions are appreciated. Cardiovascular: Regular rate and rhythm with a normal S1 and S2. No gallops, murmurs, or rubs. Normal PMI, no JVD. No pulse deficits. Respiratory: Lungs have equal breath sounds bilaterally, clear to auscultation and percussion. No rales, rhonchi or wheezes noted. No increased work of breathing, no retractions or nasal flaring. Abdomen/GI: Soft, non-tender, with normal bowel sounds. No distension or tympany. No guarding or rebound. No evidence of tenderness throughout. Back: No spinal tenderness. No costovertebral tenderness. Full range of motion. Male : Normal genitalia with no discharge or lesions. Skin: Warm, dry with normal turgor. Normal color with no rashes, no lesions, and no evidence of cellulitis. MS/ Extremity: Pulses equal, no cyanosis. Neurovascular intact. Full, normal range of motion. Neuro: Awake and alert, GCS 15, oriented to person, place, time, and situation. Cranial nerves II-XII grossly intact. Motor strength 5/5 in all extremities. Sensory grossly intact. Cerebellar exam normal. Normal gait. Psych: Awake, alert, with orientation to person, place and time. Behavior, mood, and affect are within normal limits. Vital Signs: 06:55 BP 211 / 93; Pulse 62; Resp 18; Temp 97.7; Pulse Ox 100% on R/A; Weight 90.72 kg; al5 Height 6 ft. 2 in. ; Pain 3/10; 07:14 BP 165 / 69; Pulse 67; Resp 17; Pulse Ox 99% on R/A; rs5 08:00 BP 166 / 66; Pulse 71; Resp 17; Pulse Ox 99% on R/A; rs5 06:55 Body Mass Index 25.68 (90.72 kg, 187.96 cm) al5 06:55 Pain Scale: Adult al5 MDM: 07:06 Medical Screening Exam initiated shandra 07:29 Differential diagnosis: Nonspecific abd pain, gastritis, cholecystitis, pancreatitis, shandra appendicitis, diverticulitis, viral gastroenteritis, gastroenteritis. Data reviewed: vital signs, nurses notes, lab test result(s). Consideration of Admission/Observation Escalation of care including admission/observation considered. I considered the following discharge prescriptions or medication management in the emergency department Medications were administered in the Emergency Department. See MAR. Test considered but Not performed: X-ray: no x ray. Historians other than the Patient: pt well informed. Care significantly affected by the following chronic conditions: Diabetes, Hypertension. 03/08 06:37 Order name: CBC with Diff; Complete Time: 07:24 sp4 03/08 06:37 Order name: CMP; Complete Time: 07:38 sp4 03/08 06:37 Order name: Lipase; Complete Time: 07:38 sp4 03/08 06:37 Order name: Urinalysis w/ reflexes; Complete Time: 07:24 sp4 03/08 06:38 Order name: IV Saline Lock; Complete Time: 07:05 sp4 03/08 06:38 Order name: Labs collected and sent; Complete Time: 07:05 sp4 03/08 07:38 Order name: PO challenge; Complete Time: 07:57 shandra 03/08 07:38 Order name: PO challenge: juice; Complete Time: 07:57 [facility] Administered Medications: 07:11 Drug: NS 0.9% IV 1000 ml IV at 1 bolus Per protocol; to be given as a bolus over 60 rs5 minutes Route: IV; Rate: 1 bolus; Site: left antecubital; 08:05 Follow up: Response: No adverse reaction; IV Status: Completed infusion; IV Intake: rs5 1000ml 07:14 Drug: Ondansetron IVP 4 mg IVP once; over 2 minutes Route: IVP; Site: left antecubital; rs5 07:30 Follow up: Response: No adverse reaction; Nausea is decreased rs5 Disposition Summary: 03/08/24 07:57 Discharge Ordered Notes: Location: Home [facility] Problem: new shandra Symptoms: have improved shandra Condition: Stable shandra Diagnosis - Vomiting shandra - Nausea shandra - Type 2 diabetes mellitus with hyperglycemia shandra - Hypokalemia shandra Followup: shandra - With: Private Physician - When: 2 - 3 days - Reason: Recheck today's complaints, Continuance of care, Re-evaluation by your physician Discharge Instructions: - Discharge Summary Sheet shandra - Potassium Content of Foods shandra - Nausea and Vomiting, Adult shandra - Nausea, Adult shandra - Nausea and Vomiting, Adult, [id number] shandra - Hypokalemia shandra - Nausea, Adult, [id number] shandra Forms: - Medication Reconciliation Form shandra - Antibiotic Education shandra - Prescription Opioid Use shandra - Patient Portal Instructions shandra - Leadership Thank You Letter [facility] Prescriptions: - ondansetron 4 mg Oral Tablet,disintegrating - take 1 tablet ORAL route every 6-8 hours for 5 days prn nausea; 20 tablet; [facility] Refills: 0, Product Selection Permitted Signatures: Dispatcher [employer] Rashi Luciano MD MD cha Sotelo, Ricky, RN RN rs5 Jag Horvath MD MD sp4 Kianna Roy RN RN al5
--- NOTE | 2024-03-08 07:57 | ER ---
Nurse's Notes [facility] Name: Zeke Mackay Sr Age: 59 yrs Sex: Male : 1965 Arrival Date: 03/08/2024 Time: 06:33 Bed 8 Private MD: Diagnosis: Vomiting;Nausea;Type 2 diabetes mellitus with hyperglycemia;Hypokalemia Presentation: 03/08 06:55 Chief complaint: Patient states: c/o n/v x1 hour with slight shortness of breath. al5 denies chest pain, abdominal pain, and diarrhea. Coronavirus screen: At this time, the client does not indicate any symptoms associated with coronavirus-19. Ebola Screen: No symptoms or risks identified at this time. Initial Sepsis Screen: Does the patient meet any 2 criteria? No. Patient's initial sepsis screen is negative. Does the patient have a suspected source of infection? No. Patient's initial sepsis screen is negative. Risk Assessment: Do you want to hurt yourself or someone else? Patient reports no desire to harm self or others. Onset of symptoms was March 08, 2024. 06:55 Method Of Arrival: Ambulatory al5 06:55 Acuity: RICKEY 3 al5 Triage Assessment: 06:58 General: Appears in no apparent distress. Behavior is calm, cooperative. Pain: Denies al5 pain. EENT: No signs and/or symptoms were reported regarding the EENT system. Neuro: Level of Consciousness is awake, alert, obeys commands, Oriented to person, place, time, situation. Cardiovascular: Capillary refill < 3 seconds Patient's skin is warm and dry. Respiratory: Airway is patent Respiratory effort is even, unlabored, Respiratory pattern is regular, symmetrical. GI: Abdomen is flat, non-distended, Reports nausea, vomiting. : No signs and/or symptoms were reported regarding the genitourinary system. Derm: Skin is intact, Skin is pink, warm \T\ dry. normal. Musculoskeletal: No signs and/or symptoms reported regarding the musculoskeletal system. 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 - Infectious Disease History:: Denies. - Social history:: Smoking status: Patient denies any tobacco usage or history of. Patient uses street drugs, marijuana. - Family history:: not pertinent. Screenin:59 [facility] [place] ED Fall Risk Assessment (Adult) History of falling in the last 3 months, al5 including since admission No falls in past 3 months (0 pts) Confusion or Disorientation No (0 pts) Intoxicated or Sedated No (0 pts) Impaired Gait No (0 pts) Mobility Assist Device Used No (0 pt) Altered Elimination No (0 pt) Score/Fall Risk Level 0 - 2 = Low Risk Oriented to surroundings, Maintained a safe environment, Hourly rounding (assess needs \T\ fall precautionary measures) done. Abuse screen: Denies threats or abuse. Denies injuries from another. Nutritional screening: No deficits noted. Tuberculosis screening: No symptoms or risk factors identified. Assessment: 06:59 Reassessment: see triage assessment. GI: Abdomen is flat, non-distended, Reports al5 nausea, vomiting. 08:01 General: Appears in no apparent distress. comfortable, Behavior is calm, cooperative. rs5 Pain: Denies pain. Neuro: Level of Consciousness is awake, alert, obeys commands, Oriented to person, place, time, situation. Cardiovascular: Patient's skin is warm and dry. Respiratory: Airway is patent Respiratory effort is even, unlabored, Respiratory pattern is regular, symmetrical. GI: Abdomen is flat, non-distended, Patient currently denies nausea. : No signs and/or symptoms were reported regarding the genitourinary system. EENT: No signs and/or symptoms were reported regarding the EENT system. Derm: Skin is intact, Skin is pink, warm \T\ dry. Musculoskeletal: Range of motion: intact in all extremities. Vital Signs: 06:55 BP 211 / 93; Pulse 62; Resp 18; Temp 97.7; Pulse Ox 100% on R/A; Weight 90.72 kg; al5 Height 6 ft. 2 in. ; Pain 3/10; 07:14 BP 165 / 69; Pulse 67; Resp 17; Pulse Ox 99% on R/A; rs5 08:00 BP 166 / 66; Pulse 71; Resp 17; Pulse Ox 99% on R/A; rs5 06:55 Body Mass Index 25.68 (90.72 kg, 187.96 cm) al5 06:55 Pain Scale: Adult al5 ED Course: 06:35 Patient arrived in ED. [email or web address] 06:55 Kianna Roy, RN is Primary Nurse. al5 06:57 Triage completed. al5 06:59 Arm band placed on right wrist. Patient placed in the treatment room, on a stretcher. al5 07:00 Patient has correct armband on for positive identification. Call light in reach. Side al5 rails up X 1. Provided Education on: plan of care. 07:00 No provider procedures requiring assistance completed. al5 07:00 Inserted saline lock: 20 gauge in left antecubital area, using aseptic technique. Blood sa1 collected. Flushed with 10 mL NS. 07:05 CBC with Diff Sent. sa1 07:06 Rashi Gimenez MD is Attending Physician. shandra 07:06 CMP Sent. sa1 07:06 Lipase Sent. sa1 07:06 Urinalysis w/ reflexes Sent. sa1 07:12 Daughter Anna called/ patient left his cell phone at home/ she says to call her and eb she will come pick him up when he's done. Her cell phone is [phone]. 08:06 IV discontinued, intact, bleeding controlled, No redness/swelling at site. Pressure rs5 dressing applied. Administered Medications: 07:11 Drug: NS 0.9% IV 1000 ml IV at 1 bolus Per protocol; to be given as a bolus over 60 rs5 minutes Route: IV; Rate: 1 bolus; Site: left antecubital; 08:05 Follow up: Response: No adverse reaction; IV Status: Completed infusion; IV Intake: rs5 1000ml 07:14 Drug: Ondansetron IVP 4 mg IVP once; over 2 minutes Route: IVP; Site: left antecubital; rs5 07:30 Follow up: Response: No adverse reaction; Nausea is decreased rs5 Medication: 06:59 VIS not applicable for this client. al5 Intake: 08:05 IV: 1000ml; Total: 1000ml. rs5 Outcome: 07:57 Discharge ordered by . shandra 08:06 Patient left the ED. rs5 08:06 Discharged to home ambulatory, rs5 08:06 Condition: stable rs5 08:06 Discharge instructions given to patient, family, Instructed on discharge instructions, follow up and referral plans. medication usage, Demonstrated understanding of instructions, follow-up care, medications, Prescriptions given X 1, Signatures: Rashi Gimenez MD MD cha Botello, Elizabeth eb Jeffries, Jennifer jj6 Darinel Espino RN RN rs5 Kianna Roy RN RN al5 Sultan Kurt sa1 Corrections: (The following items were deleted from the chart) 07:16 07:14 BP 192 / 89; Pulse 67bpm; Resp 17bpm; Pulse Ox 99% RA; rs5 rs5 08:24 08:00 BP 166 / 6; Pulse 71bpm; Resp 17bpm; Pulse Ox 99% RA; rs5 rs5
[2024-03-08 13:38] VITALS: TEMP 97.7
[2024-03-08 13:43] VITALS: BP 165/69; O2SAT 99
== END 2024-03-08 08:06 | disposition home or self-care (01) ==
LOC: ER 06:33
DX: E11.65 Type 2 diabetes mellitus with hyperglycemia (principal); E87.6 Hypokalemia; I10 Essential (primary) hypertension; Z95.1 Presence of aortocoronary bypass graft
CPT/HCPCS: 96361; 85025; 81001; 36415; 83690; 80053; 96374; 99284; J2405; J7030

== ENCOUNTER 2024-03-23 04:24 | Inpatient (IN) | payer OTHER ==
--- OUTSIDE RECORDS SUMMARY | 2024-03-23 04:28 | XMS REPORT | Clinical Summary ---
Author Name Unknown Organization [facility] Address [address] [place] [address] Care Team Providers [employer] Name Role Phone Margoth Souza MD Primary Care Provider [phone] Mary Jane Cassidy MD Unavailable [phone] Barry He MD Unavailable Patience Hunt MD [...] than 9% indicating poor diabetic control 01/02/2024 penitentiary current use of systemic steroid 2023 Adverse [...] PM CDT Telemedicine [facility] [address] [facility], 7th [place] [address] Margoth Souza MD Renal mass (Primary Dx) 01/02/2024 7:15 AM CDT Ancillary Procedure MAIN OR [address] [place] [address] Margoth Souza MD 01/02/2024 7:00 AM CDT - 01/02/2024 11:40 AM CDT Surgery MAIN OR [address] [place] [address] Margoth Souza MD ROBOTIC ASSISTED PARTIAL NEPHRECTOMY 01/02/2024 6:58 AM CDT Anesthesia Event MAIN OR [address] [place] [address] Alonzo Liu MD Majekodumi, Jessy, PAXTON 01/02/2024 5:04 AM CDT - 01/03/2024 5:05 PM CDT Hospital Encounter MAIN P[address]B [address] [place] [address] Margoth Souza MD Renal mass (Primary Dx) Discharge Disposition: Home 01/02/2024 Travel 12/31/2023 1:04 PM CDT - 12/31/2023 11:59 PM CDT Hospital Encounter Main CT IMAGING [address] [place] [address], 3rd [place] [address] Margoth Souza MD Renal mass Discharge Disposition: Home 12/31/2023 8:00 AM CDT Consult Endocrine Center [address] [place] [address], 6th Floor Elevator [place] [phone] Nakia Kirby APRN Khan, Sonya, MD Type 2 diabetes mellitus with hyperglycemia [E11.65] (Primary Dx); Pre-surgery evaluation 12/30/2023 9:30 AM CDT Office Visit [facility] [address] [place] [address], 7th [place] [address] Margoth Souza MD Renal mass 12/30/2023 Travel 12/30/2023 Telephone Endocrine Center [address] [place] [address], 6th [place] [address] Winnie Archibald, RN Appointment (Cannot get internet-phone broke) 12/30/2023 Orders Only [facility] [address] [place] [address], 7th [place] [address] Roberto Poole PA Renal mass (Primary Dx) 12/29/2023 Orders Only Endocrine Center [address] [place] [address], [address] [place] [address] Veronica Del Castillo APRN 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); Endocrine/metabolic screening; Renal cell carcinoma <Left side> 12/25/2023 8:36 AM CDT Anesthesia Event [facility] [address] [place] [address] Lien Antonio RN 12/23/2023 10:30 AM CDT Consult Perioperative Evaluation and Management [address] [place] [address] Margoth Souza MD Oh, Jeong, MD Encounter for other preprocedural examination (Primary Dx); Renal mass; Hyperlipidemia, not otherwise specified 12/23/2023 9:00 AM CDT POEM Appointments [facility] [address] [place] [address] Margoth Souza MD Pre-surgery evaluation (Primary Dx) 12/23/2023 8:45 AM CDT - 12/23/2023 11:59 PM CDT Hospital Encounter [facility] [address] [place] [address] Margoth Souza MD Renal mass Discharge Disposition: Home 12/23/2023 Travel 12/09/2023 9:33 AM CDT - 12/09/2023 11:59 PM CDT Hospital Encounter [facility] [address] [place] [address] Veronica Del Castillo APRN 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; Endocrine/metabolic screening Discharge Disposition: Home 12/09/2023 8:30 AM CDT Consult Endocrine Center [address] [place] [address] Mary Jane Cassidy MD 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); Endocrine/metabolic screening; Renal cell carcinoma <Left side> 12/09/2023 Travel 10/23/2023 Orders Only [facility] [address] [place] [address], [facility] [place] [address] Roberto Poole PA Renal mass (Primary Dx); Adrenal mass 10/03/2023 9:30 AM CDT - 10/03/2023 11:59 PM CDT Hospital Encounter Interventional Radiology [address] [place] [address], [facility] [place] [address] Shazia Arriaza MD McRae, [place], MD Renal mass Discharge Disposition: Home 10/03/2023 8:30 AM CDT - 10/03/2023 9:29 AM CDT Hospital Encounter [facility] [address] [place] [address] Margoth Souza MD Renal mass Discharge Disposition: Home 10/03/2023 Travel 10/02/2023 8:24 AM CDT - 10/02/2023 11:59 PM CDT Hospital Encounter Interventional Radiology [address] [place] [address] Margoth Souza MD Ho, ConradoRenata Horn, PAKori Encounter for other preprocedural examination (Primary Dx); Renal mass; 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 Discharge Disposition: Home 10/02/2023 Travel 09/24/2023 7:46 AM CDT - 09/24/2023 11:59 PM CDT Hospital Encounter [facility] [address] [place] [address] Roberto Poole PA Adrenal mass Discharge Disposition: Home 09/20/2023 Orders Only [facility] [address] [place] [address], [facility] [place] [address] Roberto Poole PA Adrenal mass (Primary Dx) 09/19/2023 11:45 AM CDT Ancillary Procedure X-Ray Outpatient Center [address] [place] [address], [address] [place], [place] [address] [address] Shazia Arriaza MD Renal mass 09/19/2023 9:20 AM CDT - 09/19/2023 11:59 PM CDT Hospital Encounter [facility] [address] [place] [address] Shazia Arriaza MD Adenoma, NOS of adrenal gland, NOS <Left> Discharge Disposition: Home 09/19/2023 Orders Only Interventional Radiology [address] [place] [address], 4th [place] [address] Abilio gN, EVANGELINA Renal mass (Primary Dx) 09/19/2023 Travel 09/19/2023 Telephone MD [facility] [address] [place] [address] Barbara Rees MA 09/16/2023 4:00 PM CDT - 09/16/2023 11:59 PM CDT Hospital Encounter [facility] [address] [place] [address] Shazia Arriaza MD Renal mass; Adrenal mass Discharge Disposition: Home 09/16/2023 2:00 PM CDT Office Visit [facility] [address] [place] [address], 7th [place] [address] Margoth Souza MD Renal mass (Primary Dx); Adrenal mass; Adenoma, NOS of adrenal gland, NOS <Left>; 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 09/16/2023 12:30 PM CDT NPR MDA PATIENT ACCESS 09/16/2023 Travel 08/08/2023 8:00 PM CDT Ancillary Procedure [facility] [address] [place] [address] Margoth Souza MD Cancer 08/08/2023 6:40 AM CDT Ancillary Procedure [facility] [address] [place] [address] Margoth Souza MD Cancer after 03/24/2023 Surgical History Surgery Date Site/Laterality Comments TOE AMPUTATION x2, 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, 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 APPENDECTOMY 05/20/1973 - 05/19/1974 Open WRIST SURGERY Left HAND SURGERY Right HIP ARTHRODESIS W/ ILIAC CREST BONE GRAFT Bilateral For hand surgeries CERVICAL SPINE SURGERY C3-6 fusion, x2 AK LAPAROSCOPY SURG PARTIAL NEPHRECTOMY 01/02/2024 Abdomen/Left Procedure: ROBOTIC ASSISTED PARTIAL NEPHRECTOMY; Surgeon: Margoth Souza MD; Location: MAIN OR; Service: UROLOGY AK ULTRASONIC GUIDANCE INTRAOPERATIVE 01/02/2024 Left Procedure: INTROPERATIVE [...] Contact Info) Description 02/05/2025 10:45 AM CDT Lab [facility] [address] [facility], 7th [place] [address] Margoth Souza MD [address] [place] [address] [email or web address] 02/05/2025 11:15 AM CDT Ancillary Procedure X-Ray Outpatient Center [address] [place] [address], [address] [place] [address] Margoth Souza MD [facility] [place] [address] [email or web address] 02/05/2025 12:20 PM CDT Ancillary Procedure CT Imaging [facility], [address] [place] [address] Margoth Souza MD [address] [place] [address] [email or web address] 02/08/2025 2:30 PM CDT Telemedicine [facility] [address] [place] [address], [address] [place] [address] Margoth Souza MD [facility] [place] [address] [email or web address] Health Maintenance Due Date Last [...] mass ARTERIAL BLOOD GAS PLUS STAT 01/02/20 10:38 AM CDT ARTERIAL BLOOD GAS PLUS STAT 01/02/20 8:42 AM CDT POC GLUCOSE SCREEN Routine 01/02/2024 8:18 AM CDT INTRAOPERATIVE US STAT 01/02/2024 7:13 AM CDT AK ULTRASONIC GUIDANCE INTRAOPERATIVE 01/02/2024 6:08 AM CDT Renal mass Special Needs [email or web address]:Please collect and send tissue to pathology window with appropriate label. AK LAPAROSCOPY SURG PARTIAL NEPHRECTOMY 01/02/2024 6:08 AM CDT Renal mass Special Needs [email or web address]:Please collect and send tissue to pathology window [...] ABDOMEN AND PELVIS Routine 2023 7:40 AM LABOR SUPERVISOR Cancer OSI CT BRAIN Routine 07/17/2023 7:40 AM LABOR SUPERVISOR Cancer after 03/24/2023 Results * (ABNORMAL) Basic Metabolic Panel- Total Calcium (01/03/2024 2:59 PM CDT) Only the most recent of7 resultswithin the time period is included. eGFR 71 >=60 mL/min/1. 73 sq. m 01/03/2024 3:44 PM CDT [facility] Comment: The eGFRcr is calculated [...] 10.2 mg/dL 01/03/2024 3:44 PM CDT [facility] Sodium Level 139 136 - 145 mmol/L 01/03/2024 3:44 PM CDT [facility] Potassium Level 3.9 3.4 - 4.5 mmol/L 01/03/2024 3:44 PM CDT [facility] Chloride 103 98 - 107 mmol/L 01/03/2024 3:44 PM CDT [facility] CO2 28 22 - 29 mmol/L 01/03/2024 3:44 PM CDT [facility] Anion Gap 8 4 - 14 mmol/L 01/03/2024 3:44 PM CDT [facility] Creatinine 1.18(H) 0.67 - 1.17 mg/dL 01/03/2024 3:44 PM CDT [facility] BUN 15 6 - 23 mg/dL 01/03/2024 3:44 PM CDT [facility] Glucose Level 137(H) 70 - 99 mg/dL 01/03/2024 3:44 PM CDT [facility] Comment: Effective 12/14/15, the glucose reference intervals have been updated based on [place] [employer] guidelines (Standards of Medical Care [...] Mcmanus APRN LAB BLOOD ORDERABLE S [facility] Unless otherwise noted, all lab tests performed by: Division of Pathology and Laboratory Medicine [address] [place] [address] * POC Glucose Screen - Fingerstick (01/03/2024 11:19 AM CDT) Only the most recent of15 resultswithin the time period is included. Glucose Screen 70 70 - 99 mg/dL 01/03/2024 11:20 AM CDT [facility] POC Sample Type Capillary 01/03/2024 11:20 AM CDT [facility] Blood 01/03/2024 11:1 9 AM CDT 01/03/2024 11:20 AM CDT Narrative [facility] - 01/03/2024 11:20 AM CDT Capillary [...] questionable test results by core lab methodology. Mragoth Souza MD POCT ORDERABLES - DE VICE [facility] Unless otherwise noted, all lab tests performed by: Division of Pathology and Laboratory Medicine [address] [place] [address] * Zinc Transporter 8 Ab (01/03/2024 4:22 AM CDT) Pathologist [facility] Zinc T8 AB <15.0 <15.0 U/mL 01/15/2024 11:18 AM CDT [facility]ASONA[facility] Comment: ADDITIONAL INFORMATION This test has been modified from the film archivist's instructions. Its performance characteristics were determined by [facility] in a manner consistent with CLIA requirements. This test has not been cleared or approved by the U.S. Food and Drug Administration. Test Performed by: [place] [address] Lead Based Paint Technician: Mary Jane Topete Ph.D.; CLIA# [id number] Blood Peripheral blood specimen / Unknown Venipuncture / Unknown 01/03/2024 4:22 AM CDT 01/03/2024 4:55 AM CDT Alicia Mcmanus APRN LAB BLOOD ORDERABLE S Performing Organization Address [facility] Co de Phone Number [facility] TIFF * Islet Antigen 2 (IA-2) Antibody (01/03/2024 4:22 AM CDT) [facility] IA-2 Antibody 0.00 <=0.02 nmol/L 01/07/2024 12:20 AM CDT [facility] Comment: ADDITIONAL INFORMATION This test was developed and its performance characteristics determined by [facility] in a manner consistent with CLIA requirements. This test has not been cleared or approved by the U.S. Food and Drug Administration. Test Performed by: [place] [address] Lead Based Paint Technician: Mary Jane Topete Ph.D.; CLIA# [id number] Blood Peripheral blood specimen / Unknown Venipuncture / Unknown 01/03/2024 4:22 AM CDT 01/03/2024 4:55 AM CDT Alicia Mcmanus APRN LAB BLOOD ORDERABLE S Performing Organization Address [facility] de Phone Number [facility] TIFF * GREG Ab Assay (01/03/2024 4:22 AM CDT) [id number] Ab-[place] 0.00 <=0.02 nmol/L 01/07/2024 12:01 AM CDT [facility] TIFF Comment: ADDITIONAL INFORMATION This test was developed and its performance characteristics determined by [facility] in a manner consistent with CLIA requirements. This test has not been cleared or approved by the U.S. Food and Drug Administration. Test Performed by: [facility] - [address] [address] Lead Based Paint Technician: Mary Jane Topete Ph.D.; CLIA# [id number] Blood Peripheral blood specimen / Unknown Venipuncture / Unknown 01/03/2024 4:22 AM CDT 01/03/2024 4:55 AM CDT Alicia Restreporolizeth MARIE LAB BLOOD ORDERABLE S Performing Organization Address [facility] de Phone Number [facility] TIFF * Insulin Ab (01/03/2024 4:22 AM CDT) Insulin Ab-[place] 0.00 0.00 - 0.02 nmol/L 01/06/2024 5:14 PM CDT [facility] TIFF Comment: ADDITIONAL INFORMATION This test was developed and its performance characteristics determined by [facility] in a manner consistent with CLIA requirements. This test has not been cleared or approved by the U.S. Food and Drug Administration. Test Performed by: [facility] - [address] [address] Lead Based Paint Technician: Mary Jane Topete Ph.D.; CLIA# [id number] Blood Peripheral blood specimen / Unknown Venipuncture / Unknown 01/03/2024 4:22 AM CDT 01/03/2024 4:55 AM CDT Alicia Mcmanus APRN LAB BLOOD ORDERABLE S [facility] * C Peptide (01/03/2024 4:22 AM CDT) [facility] C-Peptide 2.12 1.10 - 4.40 ng/mL 01/03/2024 5:48 AM CDT [facility] Blood Peripheral blood specimen / Unknown Venipuncture / Unknown 01/03/2024 4:22 AM CDT 01/03/2024 4:55 AM CDT Alicia Mcmanus APRN LAB BLOOD ORDERABLE S [facility] Unless otherwise noted, all lab tests performed by: Division of Pathology and Laboratory Medicine [address] [place] [address] * (ABNORMAL) Hemogram (01/02/2024 7:20 PM CDT) Pathologist [facility] White Blood Cell 13.8(H) 4.1 - 10.5 K/uL 01/02/2024 7:33 PM CDT [facility] Red Blood Cell 4.74 4.30 - 6.04 M/uL 01/02/2024 7:33 PM CDT [facility] Hemoglobin 12.2(L) 13.3 - 17.4 g/dL 01/02/2024 7:33 PM CDT [facility] Hematocrit 38.6(L) 39.5 - 51.8 % 01/02/2024 7:33 PM CDT [facility] Mean Cell Volume 81(L) 82 - 99 fL 01/02/2024 7:33 PM CDT [facility] Mean Cell Hemoglobin 25.7(L) 26.6 - 33.2 pg 01/02/2024 7:33 PM CDT [facility] Mean Cell Hemoglobin Concentration 31.6 31.1 - 35.2 g/dL 01/02/2024 7:33 PM CDT [facility] RDW-SD 39.1 37.5 - 49.7 fL 01/02/2024 7:33 PM CDT [facility] Red Cell Diameter Width 13.1 11.6 - 15.5 % 01/02/2024 7:33 PM CDT [facility] Platelet 291 160 - 397 K/uL 01/02/2024 7:33 PM CDT [facility] Mean Platelet Volume 9.7 9.1 - 12.6 fL 01/02/2024 7:33 PM CDT [facility] INRBC 0.0 0.0 - 0.1 /100 WBC 01/02/2024 7:33 PM CDT [facility] Comment: The INRBC (instrument NRBC) [...] CDT Derian PRICE LAB BLOOD ORDERABLES [facility] Unless otherwise noted, all lab tests performed by: Division of Pathology and Laboratory Medicine [address] [place] [id number] * (ABNORMAL) Beta Hydroxy Quant (01/02/2024 7:20 PM CDT) Only the most recent of2 resultswithin the time period is included. Beta-Hydroxybuty rate 0.85(H) 0.02 - 0.27 mmol/L 01/02/2024 8:01 PM CDT [facility] Is patient fasting? No 01/02/2024 8:01 PM CDT [facility] Comment:A fasting specimen i s recommended and results obtained from non-fasting specimens should be interpreted with caution using reference ranges based on fasting status and in conjunction with clinical context. Blood Peripheral blood specimen / Unknown Venipuncture / Unknown 01/02/2024 7:20 PM CDT 01/02/2024 7:24 PM CDT Narrative [facility] - 01/02/2024 8:01 PM CDT Reference range based on fasting. Alicia Mcmanus APRN LAB BLOOD ORDERABLE S [facility] Unless otherwise noted, all lab tests performed by: Division of Pathology and Laboratory Medicine [address] [place] [id number] * (ABNORMAL) .CBC (01/02/2024 12:19 PM CDT) Only the most recent of3 resultswithin the time period is included. White Blood Cell 11.6(H) 4.1 - 10.5 K/uL 01/02/2024 12:39 PM CDT [facility] Red Blood Cell 4.71 4.30 - 6.04 M/uL 01/02/2024 12:39 PM CDT [facility] Hemoglobin 12.4(L) 13.3 - 17.4 g/dL 01/02/2024 12:39 PM CDT [facility] Hematocrit 38.1(L) 39.5 - 51.8 % 01/02/2024 12:39 PM CDT [facility] Mean Cell Volume 81(L) 82 - 99 fL 01/02/2024 12:39 PM CDT [facility] Mean Cell Hemoglobin 26.3(L) 26.6 - 33.2 pg 01/02/2024 12:39 PM CDT [facility] Mean Cell Hemoglobin Concentration 32.5 31.1 - 35.2 g/dL 01/02/2024 12:39 PM CDT [facility] RDW-SD 39.0 37.5 - 49.7 fL 01/02/2024 12:39 PM CDT [facility] Red Cell Diameter Width 13.3 11.6 - 15.5 % 01/02/2024 12:39 PM CDT [facility] Platelet 305 160 - 397 K/uL 01/02/2024 12:39 PM CDT [facility] Mean Platelet Volume 9.7 9.1 - 12.6 fL 01/02/2024 12:39 PM CDT [facility] INRBC 0.0 0.0 - 0.1 /100 WBC 01/02/2024 12:39 PM CDT [facility] Comment: The INRBC (instrument NRBC) value reflects the enumeration of nucleated red blood cells contained in a 200uL sample of whole blood analyzed by the instrument. This value may differ from the NRBC value reported in a manual differential, which is based on a 100 cell differential. Neutrophil % 90.6(H) 43.2 - 72.7 % 01/02/2024 12:39 PM CDT [facility] Lymphocyte % 6.8(L) 16.8 - 46.2 % 01/02/2024 12:39 PM CDT [facility] Monocyte % 1.9(L) 5.1 - 12.5 % 01/02/2024 12:39 PM CDT [facility] Eosinophil % 0.1(L) 0.4 - 6.3 % 01/02/2024 12:39 PM CDT [facility] Basophil % 0.3 0.2 - 1.4 % 01/02/2024 12:39 PM CDT [facility] IGRE % 0.3 0.1 - 1.5 % 01/02/2024 12:39 PM CDT [facility] Comment:The IGRE% includes M etamyelocytes, Myelocytes and Promyelocytes. Neutrophil Abs 10.48(H) 1.95 - 7.25 K/uL 01/02/2024 12:39 PM CDT [facility] Lymphocyte Abs 0.79(L) 1.01 - 3.24 K/uL 01/02/2024 12:39 PM CDT [facility] Monocyte Abs 0.22(L) 0.24 - 0.85 K/uL 01/02/2024 12:39 PM CDT [facility] Eosinophil Abs 0.01(L) 0.02 - 0.50 K/uL 01/02/2024 12:39 PM CDT [facility] Basophil Abs 0.03 0.02 - 0.09 K/uL 01/02/2024 12:39 PM CDT [facility] IG Abs 0.03 0.01 - 0.12 K/uL 01/02/2024 12:39 PM CDT [facility] Blood Peripheral blood specimen / Unknown Venipuncture / Unknown 01/02/2024 12:19 PM CDT 01/02/2024 12:33 PM CDT Hakan Nagy MD LAB BLOOD ORDERABLES [facility] Unless otherwise noted, all lab tests performed by: Division of Pathology and Laboratory Medicine [address] [place] [id number] * Pathology Surgical Interpretation (01/02/2024 10:42 AM CDT) Submitted Clinical History Renal mass [N28.89] 01/22/2024 10:13 PM CDT [facility] Diagnosis A: Perinephric fat, resection: Fibroadipose tissue, negative for tumor. B: Kidney, left, hilar mass, partial nephrectomy: RENAL CELL CARCINOMA, CLEAR CELL TYPE. (SEE CAP PROTOCOL) [place] thrombus in a branch of renal vein. (See comment) PXT/FHH 01/22/2024 10:13 PM CDT [facility] Comment The thrombus in the branch of the renal vein does not have any epithelial cells, which is confirmed by Cytokeratin cocktail and PAX8 immunohistochemical stains (on blocks B2 and B9). 01/22/2024 10:13 PM CDT [facility] Synoptic Checklist KIDNEY: Nephrectomy KIDNEY: [...] apparent mass lesional lymph node grossly identified. Freezing Machine Operator section in A1. PB B: Kidney, left, [...] 01/22/2024 10:13 PM CDT [facility] Biomarker Block(s) Tumor: B8 Normal: A1 01/22/2024 10:13 PM CDT [facility] Disclaimer "Some tests reported here may have been developed and performance characteristics determined by [facility] Pathology and Laboratory Medicine. These tests have not been specifically cleared or approved by the U.S. Food and Drug Administration. If applicable, controls were reviewed and showed appropriate reactivity." 01/22/2024 10:13 PM CDT [facility] Tissue (Perinephric Fat) 01/02/2024 10:42 AM CDT 01/02/2024 11:03 AM CDT Tissue specimen (specimen) (Kidney, Left) 01/02/2024 10:43 AM CDT 01/02/2024 11:03 AM CDT Margoth Souza MD LAB PATHOLOGY ORDERA BLES [facility] [address] [address], [place] * (ABNORMAL) ABG+ (ABG, Na, K, Cl, Glu, Hgb, Hct, Lactate, Ion Ca) (01/02/2024 10:38 AM CDT) Only the most recent of2 resultswithin the time period is included. Sodium Arterial 140 136 - 146 mmol/L 01/02/2024 10:44 AM T [facility] Potassium Arterial 3.7 3.4 - 4.5 mmol/L 01/02/2024 10:44 AM T [facility] Chloride Arterial 103 98 - 106 mmol/L 01/02/2024 10:44 AM T [facility] Glucose Arterial 270(H) 70 - 105 mg/dL 01/02/2024 10:44 AM T [facility] Hgb Art 12.9(L) 13.5 - 17.5 g/dL 01/02/2024 10:44 AM [facility] Hematocrit Arterial 40(L) 42 - 52 % 01/02/2024 10:44 AM [facility] Lactate Arterial 1.0(H) 0.4 - 0.8 mmol/L 01/02/2024 10:44 AM T [facility] Calcium Ionized Arterial 1.14(L) 1.15 - 1.29 mmol/L 01/02/2024 10:44 AM [facility] pH Arterial 7.35 7.35 - 7.45 01/02/2024 10:44 AM [facility] P CO2 Arterial 42.9 35.0 - 48.0 mmHg 01/02/2024 10:44 AM [facility] P O2 Arterial 164(H) 83 - 108 mmHg 01/02/2024 10:44 AM [facility] Bicarbonate Arterial 24 21 - 28 mmol/L 01/02/2024 10:44 AM [facility] WB Anion Gap 13 7 - 16 mmol/L 01/02/2024 10:44 AM [facility] Base Excess Arterial -2 -2 - 3 mmol/L 01/02/2024 10:44 AM [facility] Oxygen Saturation Arterial 99 95 - 99 % 01/02/2024 10:44 AM [facility] Oxygen FLOW Rate/ FiO2 01/02/2024 10:44 AM CDT [facility] O2 Therapy 01/02/2024 10:44 AM CDT [facility] Art Kirill Test Not Applicable (Arterial Line Draw) 01/02/2024 10:44 AM CDT [facility] Blood Arterial blood specimen / Unknown Arterial Line / Unknown 01/02/2024 10:38 AM CDT 01/02/2024 10:41 AM CDT Narrative [facility] - 01/02/2024 10:44 AM CDT The [...] Alonzo Liu MD LAB BLOOD ORDERABLES [facility] Unless otherwise noted, all lab tests performed by: Division of Pathology and Laboratory Medicine [address] [place] [id number] * Intraoperative Ultrasound - For Image Storage [...] DATE 01/22/2024 12/23/2023 2:19 PM CDT [facility] - TRANSFUSION SERVICES Blood Peripheral blood specimen / Unknown Venipuncture / Unknown 12/23/2023 8:51 AM CDT 12/23/2023 9:00 AM CDT Margoth Souza MD BLOOD BANK TEST MIKE PEREZ [facility] - TRANSFUSION SERVICES [facility] [address] [place] [address] * Preop Updated Expiration (12/23/2023 8:51 AM CDT) PREOP STATUS 01/02/2024 11:33 PM CDT [facility] PREOP EXP DATE 01/02/2024 01/02/2024 11:33 PM CDT [facility] Blood Peripheral blood specimen / Unknown Venipuncture / Unknown 12/23/2023 8:51 AM CDT 12/23/2023 9:00 AM CDT Margoth Souza MD BLOOD BANK TEST ORDRay PEREZ [facility] - TRANSFUSION SERVICES [facility] Trans[facility] [address] [place] [address] * (ABNORMAL) Urinalysis with Reflex Culture (12/23/2023 8:51 AM CDT) Only the most recent of2 resultswithin the time period is included. Urine Appearance Clear Clear 12/23/19 9:33 AM T [facility] Urine Color Straw Colorless, Straw, Yellow, Dark Yellow, Straw-Yellow 12/23/2023 9:33 AM T [facility] Urine Specific Ruby 1.032 1.003 - 1.035 12/23/2023 9:33 AM T [facility] Urine pH 6.0 5.0 - 8.0 12/23/2023 9:33 AM T [facility] Urine Glucose >=1000(A) Negative mg/dL 12/23/2023 9:33 AM T [facility] Urine Ketones Negative Negative mg/dL 12/23/2023 9:33 AM T [facility] Urine Blood Negative Negative 12/23/2023 9:33 AM T [facility] Urine Protein 30(A) Negative mg/dL 12/23/2023 9:33 AM T [facility] Urine Bilirubin Negative Negative 9:33 AM T [facility] Urine Urobilinogen Negative Negative 12/23/2023 9:33 AM T [facility] Urine Nitrite Negative Negative 12/23/2023 9:33 AM T [facility] Urine Leukocyte Esterase Negative Negative 12/23/2023 9:33 AM T [facility] Urine Mucous Not Seen Not Seen, Trace /HPF 12/23/2023 9:33 AM T [facility] Urine Bacteria Not Seen Not Seen /HPF 12/23/2023 9:33 AM T [facility] Urine Squamous Epithelial Cells OCC Not Seen, OCC, Rare /HPF 12/23/2023 9:33 AM T [facility] Urine WBC <1 <=2 /HPF 12/23/2023 9:33 AM T [facility] Urine RBC 1 <=2 /HPF 12/23/2023 9:33 AM [facility] Urine Voided urine specimen / Unknown Non-blood Collection / Unknown 12/23/2023 8:51 AM CDT 12/23/2023 9:10 AM CDT Narrative [facility] - 12/23/2023 9:33 AM CDT Some reporting parameters within the Urinalysis test have changed due to the implementation of new instrumentation in the Main [place], allowing greater sensitivity of measurement. Urinalysis results reported by the [facility] using existing instrumentation, as well as Urinalysis testing performed manually or by back-up methodology at the main [place], will remain relatively unchanged. New reporting parameters and units will now be reported for all campuses. Margoth Souza MD URINE ORDERABLES [facility] Unless otherwise noted, all lab tests performed by: Division of Pathology and Laboratory Medicine [address] [place] [address] * 30-Day Pre-Op Type and Screen (12/23/2023 8:51 AM CDT) Only the most recent of2 resultswithin the time period is included. ABORh O POS 12/23/2023 8:45 AM CDT [facility] - TRANSF[facility]ION SERVICES ABSC Negative 12/23/2023 8:45 AM CDT [facility] BB Criteria Met Criteria met 12/23/2023 8:45 AM CDT [facility] Historical Record Check Complete 12/23/2023 8:45 AM CDT [facility] Blood Peripheral blood specimen / Unknown Venipuncture / Unknown 12/23/2023 8:51 AM CDT 12/23/2023 9:00 AM CDT Margoth Souza MD BLOOD BANK TEST ORDE RABLES Performing Organization Address City/[facility]/ZIP Co de Phone Number [facility] - TRANSFUSION SERVICES [facility] Transfusion Services [address] [place] [address] [address] [place] [address] * TMP Interpretation Exception PreOp Expiration (12/23/2023 8:51 AM CDT) Only the most recent of2 resultswithin the time period is included. TMP Exception 12/24/2023 10:47 AM CDT [facility] TMP Signature . 12/24/2023 10:47 AM CDT [facility] Blood Peripheral blood specimen / Unknown Venipuncture / Unknown 12/23/2023 8:51 AM CDT 12/23/2023 9:00 AM CDT Margoth Souza MD BLOOD BANK TEST ORDRay PEREZ [facility] - TRANSFUSION SERVICES [facility] Transfusion [facility] [address] [place] [address] * (ABNORMAL) Comprehensive Metabolic Panel (12/23/2023 8:51 AM CDT) Only the most recent of2 resultswithin the time period is included. Bilirubin Total 0.3 0.0 - 1.2 mg/dL 12/23/2023 9:41 AM CDT [facility] Comment:Indocyanine Green (I CG) may cause falsely elevated bilirubin results. Total and direct bilirubin must not be measured from samples containing indocyanine green. False elevation of total bilirubin can be seen in patients with IgG concentrations above 28 g/L. eGFR 75 >=60 mL/min/1. 73 sq. m 12/23/2023 9:41 AM CDT [facility] Comment: The eGFRcr is calculated with the [...] 6.4 - 8.3 gm/dL 12/23/2023 9:41 AM [facility] Calcium Level Total 9.9 8.2 - 10.2 mg/dL 12/23/2023 9:41 AM [facility] Alkaline Phosphatase 80 40 - 129 U/L 12/23/2023 9:41 AM [facility] Albumin Level 4.2 3.5 - 5.2 gm/dL 12/23/2023 9:41 AM [facility] AST 15 <=40 U/L 12/23/2023 9:41 AM [facility] ALT 14 <=41 U/L 12/23/2023 9:41 AM [facility] Sodium Level 138 136 - 145 mmol/L 12/23/2023 9:41 AM [facility] Potassium Level 4.2 3.4 - 4.5 mmol/L 12/23/2023 9:41 AM [facility] Chloride 101 98 - 107 mmol/L 12/23/2023 9:41 AM [facility] CO2 29 22 - 29 mmol/L 12/23/2023 9:41 AM [facility] Anion Gap 8 4 - 14 mmol/L 12/23/2023 9:41 AM [facility] Creatinine 1.13 0.67 - 1.17 mg/dL 12/23/2023 9:41 AM [facility] BUN 14 6 - 23 mg/dL 12/23/2023 9:41 AM [facility] Glucose Level 294(H) 70 - 99 mg/dL 12/23/2023 9:41 AM [facility] Comment: Effective 12/14/15, the glucose reference intervals have been updated based on [place] [employer] guidelines (Standards of Medical Care [...] MD LAB BLOOD ORDERABLES Performing Organization Address [facility] de Phone Number [facility] Unless otherwise noted, all lab tests performed by: Division of Pathology and Laboratory Medicine [address] [place] [phone] * (ABNORMAL) Hemoglobin A1c (12/23/2023 8:51 AM CDT) Only the most recent of2 resultswithin the time period is included. Hemoglobin A1c 9.7(H) 4.3 - 5.6 % 12/23/2023 9:34 AM CDT [facility] Blood Peripheral blood specimen / Unknown Venipuncture / Unknown 12/23/2023 8:51 AM CDT 12/23/2023 9:00 AM CDT Narrative [facility] - 12/23/2023 9:34 AM CDT HbA1c values >=6.5% are diagnostic of diabetes mellitus. Diagnosis should be confirmed by repeat testing. Therapeutic Action suggested: >8.0% HbA1c; Goal of therapy: <7.0% HbA1c Margoth Souza MD LAB BLOOD ORDERABLES Performing Organization Address [facility] de Phone Number [facility] Unless otherwise noted, all lab tests performed by: Division of Pathology and Laboratory Medicine [address] [place] [phone] * ACTH (12/09/2023 9:45 AM CDT) Only the most recent of2 resultswithin the time period is included. ACTH 22 7 - 63 pg/mL 12/09/2023 12:19 PM CDT [facility] Blood Peripheral blood specimen / Unknown Venipuncture / Unknown 12/09/2023 9:45 AM CDT 12/09/2023 9:52 AM CDT Narrative [facility] - 12/09/2023 12:19 PM CDT Reference range established based on adult population (7 - 10am draws). No established reference values for p.m. draws. Results greater than 1826 pg/mL may not be reliable due to matrix effect with extended dilution as it exceeds the film archivist's recommended limit. ACTH reference intervals are established for the morning hours from 7-10 am. Due to the circadian rhythm of ACTH levels in plasma, the sample collection time must be noted. Caution should be exercised when interpreting such values and done in conjunction with clinical context. Veronica Del Castillo APRN LAB BLOOD ORDERABL ES [facility] Unless otherwise noted, all lab tests performed by: Division of Pathology and Laboratory Medicine [address] [place] [phone] * DHEA Sulfate (12/09/2023 9:45 AM CDT) Pathologist [facility] DHEAS-[place] 81 20 - 299 mcg/dL 12/10/2023 12:10 PM CDT [facility] Comment: Test Performed by: [facility] [address] [place] [address] Lead Based Paint Technician: Mary Jane Topete Ph.D.; CLIA# [id number] Blood Peripheral blood specimen / Unknown Venipuncture / Unknown 12/09/2023 9:45 AM CDT 12/09/2023 9:56 AM CDT Veronica Del Castillo APRN LAB BLOOD ORDERABL ES [facility] * Cortisol, Total (12/09/2023 9:45 AM CDT) Only the most recent of4 resultswithin the time period is included. Pathologist [facility] Cortisol 11.39 4.82 - 19.50 mcg/dL 12/09/2023 11:00 AM CDT [facility] Blood Peripheral blood specimen / Unknown Venipuncture / Unknown 12/09/2023 9:45 AM CDT 12/09/2023 9:55 AM CDT Narrative [facility] - 12/09/2023 11:00 AM CDT Cortisol reference [...] Afternoon (4-8 pm): 2.47 - 11.9 mcg/dL Amyun Abundio MARIE LAB BLOOD ORDERABL ES [facility] Unless otherwise noted, all lab tests performed by: Division of Pathology and Laboratory Medicine [address] [place] [address] * IR CT GUIDED BIOPSY RENAL (10/03/2023 10:27 AM CDT) Anatomical Region Laterality Modality Abdomen/Pelvis, Organ (liver/spleen/kidney) Computed Tomography Narrative 10/04/2023 9:03 AM CDT Table formatting from the original result was not included. Date of Procedure: 10/03/23 Attending Physician: Kumar Comer MD Powder Worker Tnt: None Pre Procedure Diagnosis: Renal mass Post [...] with Interventional Radiology required. Shazia Arriaza MD [facility] IR ORDERABLES * Pathology Biopsy Interpretation (10/03/2023 10:19 AM CDT) Submitted Clinical History Renal mass [N28.89] 10/04/2023 9:52 AM CDT [facility] Diagnosis A: Kidney, left, biopsy: RENAL CELL CARCINOMA, CLEAR CELL TYPE, ISUP/WHO NUCLEAR GRADE 1. CCG/FGT 10/04/2023 9:52 AM CDT [facility] Gross Description A: Kidney, left, left kidney: Multiple soft castillo-brown tissue cores and core fragments, less than 0.1 cm - 0.2 cm in length and up to 0.1 cm in diameter, entirely submitted in A1. ET 10/04/2023 9:52 AM CDT [facility] Biomarker Block(s) Tumor: A1 10/04/2023 9:52 AM CDT [facility] Disclaimer "Some tests reported here may have been developed and performance characteristics determined by [facility] Pathology and Laboratory Medicine. These tests have not been specifically cleared or approved by the U.S. Food and Drug Administration. If applicable, controls were reviewed and showed appropriate reactivity." 10/04/2023 9:52 AM CDT [facility] Tissue (Kidney, Left) 10/03/2023 10:19 AM CDT 10/03/2023 12:29 PM CDT Shazia Arriaza MD LAB PATHOLOGY MIKE PEREZ [facility] [address] [place] [address], * Prothrombin Time (10/03/2023 9:27 AM CDT) Prothrombin Time 12.6 11.9 - 14.5 second(s) 10/03/2023 9:57 AM CDT [facility] International Normalization Ratio 0.98 0.87 - 1.12 10/03/2023 9:57 AM CDT [facility] Blood Peripheral blood specimen / Unknown Venipuncture / Unknown 10/03/2023 9:27 AM CDT 10/03/2023 9:28 AM CDT Abilio Ng PA-C LAB BLOOD ORDERABL ES Performing Organization Address City/[facility] Co de Phone Number [facility] [address] [place] [address] * Type and Screen (10/03/2023 9:27 AM CDT) ABORh O POS 10/03/2023 9:17 AM CDT [facility] - TRANSF[facility]ION [facility] ABSC Negative 10/03/2023 9:17 AM CDT [facility] Clot Expiration 10/06/2023 23:59 10/03/2023 9:17 AM CDT [facility] Historical Record Check Complete 10/03/2023 9:17 AM CDT [facility] Blood Peripheral blood specimen / Unknown Venipuncture / Unknown 10/03/2023 9:27 AM CDT 10/03/2023 9:52 AM CDT Abilio Ng PA-C BLOOD BANK TEST OR DERABLES [facility] - TRANSFUSION SERVICES [facility] [address] [place] [address] * X-ray Chest 2 Views (09/19/2023 9:24 [...] Arriaza MD ECG ORDERABLES Performing Organization Address City/[facility]/ZIP Co de Phone Number [facility] * Metanephrines Fractionated (09/16/2023 4:24 PM CDT) [facility] Normetane Free-[place] 0.43 <0.90 nmol/L 09/19/2023 2:59 PM CDT [facility] Metanephr Free-[place] <0.20 <0.50 nmol/L 09/19/2023 2:59 PM CDT [facility] Comment: ADDITIONAL INFORMATION This test was developed and its performance characteristics determined by [facility] in a manner consistent with CLIA requirements. This test has not been cleared or approved by the U.S. Food and Drug Administration. Test Performed by: [facility] [address] Lead Based Paint Technician: Scot Skelton M.D. Ph.D.; CLIA# [id number] Blood Peripheral blood specimen / Unknown Venipuncture / Unknown 09/16/2023 4:24 PM CDT 09/16/2023 4:41 PM CDT Shazia Arriaza MD LAB BLOOD ORDERABL ES Performing Organization Address City/[facility]/ZIP Co de Phone Number [facility] * Hepatitis C Virus Antibody (09/16/2023 4:24 PM CDT) [facility] HCVAb. Non Reactive Non Reactive 09/17/2023 9:11 AM CDT [facility] Blood Peripheral blood specimen / Unknown Venipuncture / Unknown 09/16/2023 4:24 PM CDT 09/16/2023 4:41 PM CDT Narrative [facility] - 09/17/2023 9:11 AM CDT Antibody detection in the immunocompromised and immunosuppressed population may be delayed or absent entirely. Therefore serial testing, correlation with other clinical findings, and supplemental testing (if available) should be taken into consideration when interpreting the results. Shazia Arriaza MD LAB BLOOD ORDERABL ES [facility] Unless otherwise noted, all lab tests performed by: Division of Pathology and Laboratory Medicine [address] [place] [phone] * Aldosterone Level (09/16/2023 4:24 PM CDT) Pathologist [facility] Aldosterone-[place] 8.1 <=21 ng/dL 09/20/2023 1:02 AM CDT [facility]FF Comment: ADDITIONAL INFORMATION Reference range for patients 11 years and older is based on upright A.M. collection from subjects without sodium restrictions. This test was developed and its performance characteristics determined by [facility] in a manner consistent with CLIA requirements. This test has not been cleared or approved by the U.S. Food and Drug Administration. Test Performed by: [facility] [address] [address] Lead Based Paint Technician: Scot Skelton M.D. Ph.D.; CLIA# [id number] Blood Peripheral blood specimen / Unknown Venipuncture / Unknown 09/16/2023 4:24 PM CDT 09/16/2023 4:41 PM CDT Shazia Arriaza MD LAB BLOOD ORDERABL ES [facility] TIFF * Renin Activity (09/16/2023 4:24 PM CDT) Pathologist [facility] 4.3 ng/mL/h 09/19 3:42 PM CDT [facility] Comment: REFERENCE VALUE (Peripheral vein specimen) Na-deplete, upright: Mean: 5.9 Range: 2.9-10.8 Na-replete, upright: Mean: 1.0 Range: < or =0.6-3.0 ADDITIONAL INFORMATION Testing performed by Liquid Chromatography-Tandem Mass Spectrometry (LC-MS/MS). This test was developed and its performance characteristics determined by [facility] in a manner consistent with CLIA requirements. This test has not been cleared or approved by the U.S. Food and Drug Administration. Test Performed by: [facility] [address] Lead Based Paint Technician: Scot Skelton M.D. Ph.D.; CLIA# [id number] Blood Peripheral blood specimen / Unknown Venipuncture / Unknown 09/16/2023 4:24 PM CDT 09/16/2023 4:41 PM CDT Shazia Arriaza MD LAB BLOOD ORDERABL ES [facility] * Urine Culture (09/16/2023 4:24 PM CDT) [facility] Urine Culture Normal site mirna present. Generally of low significance. Correlate with clinical data and culture history. 09/18/2023 8:31 AM CDT [facility] Urine Voided urine specimen / Unknown Non-blood Collection / Unknown 09/16/2023 4:24 PM CDT 09/16/2023 4:41 PM CDT Shazia Arriaza MD MICROBIOLOGY - GEN ERAL ORDERABLES Performing Organization Address City/[facility]/ZIP Co de Phone Number [facility] Unless otherwise noted, all lab tests performed by: Division of Pathology and Laboratory Medicine [address] [place] [phone] * TSH (09/16/2023 4:24 PM CDT) Pathologist [facility] Thyroid Stimulating Hormone 1.43 0.27 - 4.20 mcunit/mL 09/16/2023 5:23 PM CDT [facility] Blood Peripheral blood specimen / Unknown Venipuncture / Unknown 09/16/2023 4:24 PM CDT 09/16/2023 4:41 PM CDT Shazia Arriaza MD LAB BLOOD ORDERABL ES Performing Organization Address City/[facility] Co de Phone Number [facility] [address] [place] [address] * T4 (09/16/2023 4:24 PM CDT) Thyroxine 7.0 4.5 - 11.7 mcg/dL 09/16/2023 5:55 PM CDT [facility] Blood Peripheral blood specimen / Unknown Venipuncture / Unknown 09/16/2023 4:24 PM CDT 09/16/2023 4:41 PM CDT Shazia Arriaza MD LAB BLOOD ORDERABL ES Performing Organization Address City/[facility]/ZIP Co de Phone Number [facility] Unless otherwise noted, all lab tests performed by: Division of Pathology and Laboratory Medicine [address] [place] [phone] * Confirm ABORh (09/16/2023 4:23 PM CDT) ABORh Confirm O POS 09/16/2023 4:15 PM CDT [facility] - TRANSF[facility]ION SERVICES Blood Peripheral blood specimen / Unknown Venipuncture / Unknown 09/16/2023 4:23 PM CDT 09/16/2023 4:41 PM CDT Shazia Arriaza MD BLOOD BANK TEST OR DERABLES [facility] - TRANSFUSION SERVICES [facility] [address] [place] [address] * OSI CT Abdomen and Pelvis (07/18/2023 7:40 AM LABOR SUPERVISOR) Narrative Systemgenerated, Documentation - 08/08/2023 7:40 AM CDT Study acquired at another institution. For comparison only. No MD Gimenez originated interpretation requested or available. Margoth Souza MD IMG OUTSIDE IMAGE OR DERABLES * OSI CT Brain (07/17/2023 7:40 AM LABOR SUPERVISOR) Narrative Systemgenerated, Documentation - 08/08/2023 7:40 AM CDT Study acquired at another institution. For comparison only. No MD Gimenez originated interpretation requested or available. Margoth Souza MD IMG OUTSIDE IMAGE OR DERABLES after 03/24/2023 Advance Directives * Full Code (Latest Code Status on File) Date Activated Date Inactivated Comments 01/02/2024 1:48 PM 01/03/2024 7:17 PM Care Teams [employer] Relationship Specialty Start Date End Date Margoth Souza MD [facility] [place] [address] [email or web address] PCP - General Urology 07/30/23 Mary Jane Cassidy MD [address] [place] [phone] [email or web address] Consulting Physician Endocrinology 12/09/23 Barry He MD [address] [place] [address] [email or web address] Consulting Physician Internal Medicine 12/23/23 Patience Hunt MD [address] [place] [address] [email or web address] Consulting Physician Endocrinology 12/31/23
[2024-03-23] MEDS ORDERED: ONDANSETRON 4 MG/2 ML VIAL ONE ×2 (04:43→06:27)
[2024-03-23 06:27] LABS: PT Prothrombin Time 11.7 SECONDS (9.4-12.5); Protime INR 1.05
[2024-03-23] MEDS ORDERED: METOCLOPRAMIDE 10 MG/2mL INJ ONE (06:27)
[2024-03-23] MEDS ORDERED: DICYCLOMINE HCL 10 MG CAP ONE (06:27)
[2024-03-23 06:28] LABS: Absolute Basophils 0.1 K/uL (0-0.5); Absolute Eosinophils 0.2 K/uL (0-0.5); Absolute Lymphocytes (CBC) 1.2 K/uL (0.7-4.9); Absolute Monocytes 0.5 K/uL (0.1-1.3); Absolute Neutrophil 5.8 K/uL (1.8-8.0); Basophils % 0.9 % (0-1.3); Hematocrit 37.5 % (39.6-49.0); Hemoglobin 12.5 g/dL (13.6-17.9); Lymphocytes % 15.6 % (15.3-44.8); MCH 25.6 pg (27.0-35.0); MCHC 33.3 g/dL (32.0-36.0); MCV 76.9 fL (80-100); MPV 7.3 fL (7.6-11.3); Neutrophils % 75.5 % (41.7-73.7); Platelets 296 thou/uL (152-406); RBC Red Blood Cell Count 4.88 M/uL (4.33-5.43)
[2024-03-23] MEDS ORDERED: cloNIDine HCL 0.1 MG TAB ONE (06:28)
[2024-03-23] MEDS ORDERED: FAMOTIDINE 20 MG/2 ML VIAL IV ONE (06:28)
[2024-03-23] MEDS ORDERED: NA CHLORIDE 0.9% 1,000 ML ONE ×2 (06:28→10:48)
--- NOTE | 2024-03-23 06:40 | RAD REPORT ---
EXAM: XR Chest, 1 View CLINICAL HISTORY: The patient is 59 years old and is Male; diaphoretic TECHNIQUE: Frontal view of the chest. COMPARISON: No relevant prior studies available. FINDINGS: Lungs: Unremarkable. No consolidation. Pleural space: Unremarkable. No pneumothorax. Heart: Unremarkable. Mediastinum: Unremarkable. Normal mediastinal contour. Bones/joints: No acute findings. IMPRESSION: No acute findings in the chest. Electronically signed by: Otf Steward MD 03/23/2024 05:54 AM [facility] 8 Due to temporary technical issues with the PACS/[employer] reporting system, reports are being brandon d by the in-house radiologist without review as a courtesy to ensure prompt reporting the interpreting radiologist is fully responsible for the content of the report. Transcribed Date/Time: 03/23/2024 6:39 AM
[2024-03-23 06:50] LABS: ALT/SGPT 15 U/L (16-61); AST/SGOT 15 U/L (15-37); Albumin 3.8 g/dL (3.4-5.0); Albumin/Globulin Ratio 0.9 (1.1-1.8); Alkaline Phosphatase 86 U/L (45-117); Anion Gap 8.7 mEq/L (5.0-15.0); BUN Blood Urea Nitrogen 16 mg/dL (7-18); Bicarbonate 28 mEq/L (21-32); Bilirubin Direct < 0.2 mg/dL (0-0.2); Bilirubin Indirect, Calculated 0.2 mg/dL (0.2-0.8); Bilirubin Total 0.4 mg/dL (0.2-1.0); Globulin 4.3 g/dL (2.3-3.5); Glomerular Filtration Rate 61 ml/min (=/>90); Glucose Level 163 mg/dL (74-106); Lipase 344 U/L (13-75); Magnesium 1.7 mg/dL (1.6-2.4); NT PRO-BNP 932 pg/mL (<125); Potassium 2.7 mEq/L (3.5-5.1); Protein, Total 8.1 g/dL (6.4-8.2); Sodium Level 136 mEq/L (136-145); Troponin High Sensitivity 31.4 pg/mL (<58.9)
[2024-03-23 07:03] LABS: SARS-CoV-2 Antigen CONTROL BLUE LINE VIS/BG OK; SARS-CoV-2 Antigen Rapid Res Negative (Negative)
[2024-03-23] MEDS ORDERED: PROMETHAZINE INJ 25 MG/ML AMP ONE ×2 (08:00→09:45)
[2024-03-23] MEDS ORDERED: HYDRALAZINE HCL 20 MG/ML VIAL ONE (08:37)
--- NOTE | 2024-03-23 09:18 | RAD REPORT ---
EXAM: CT CHEST, ABDOMEN AND PELVIS WITH CONTRAST CLINICAL INDICATION: Male, 59 years old. CHEST PAIN TECHNIQUE: CT chest, abdomen, and pelvis was performed, following the administration of contrast, as per department protocol. Axial, sagittal and coronal reconstructions were obtained. One or more of the following dose reduction techniques were used: Automated exposure control, adjustment of the mA a nd/or kV according to patient size, and/or iterative reconstruction. Unless otherwise specified, incidental findings do not require dedicated imaging follow-up. COMPARISON: 02/27/2024 FINDINGS: LUNGS AND AIRWAYS: No evidence of airspace or interstitial process. No nodules. PLEURA: Improving left pleural effusion with trace residual. No pneumothorax. MEDIASTINUM AND LYMPH NODES: Sequelae of CABG. No mediastinal mass or fluid collection. Normal size m ediastinal, hilar, and axillary lymph nodes. THORACIC AORTA: Normal caliber and configuration. PULMONARY ARTERIES: Normal caliber. OSSEOUS STRUCTURES AND CHEST WALL: Intact. LIVER: Normal in size and contour. No focal lesion or biliary dilitation. BILIARY SYSTEM: Punctate calculus near the gallbladder neck measuring 2-3 mm, stable. PANCREAS: No mass, ductal dilation, or derrick-pancreatic fluid. SPLEEN: Normal size. No focal lesion. ADRENALS: Normal; no mass. KIDNEYS AND URETERS: Stable post surgical changes at the left superior pole with some residual adjace nt perinephric fat stranding. Stable right hydronephrosis. No ureteral dilation. No evidence of obstructing calculi. No left hydronephrosis. URINARY BLADDER: Normal contour. GASTROINTESTINAL TRACT: Motion artifact limits evaluation at the upper abdomen. Mild wall thickening in the region of the antrum through first part of duodenum, stable. Apparent wall thickening along the remainder of the stomach appears improved. No bowel obstruction, free air, significant free fluid or abscess. APPENDIX: No inflammatory changes in region of appendix. LYMPH NODES: No lymphadenopathy. ABDOMINAL AORTA AND OTHER VESSELS: Normal caliber aorta and IVC. MUSCULOSKELETAL: Superior endplate compression deformity at L1, stable. IMPRESSION: Improving wall thickening of the proximal stomach, may relate to improving gastritis. Some residual w all thickening along the antrum through first part of duodenum. Persistent right hydronephrosis. No evidence of obstruction. Stable postsurgical changes of the upper pole left kidney. Other stable findings as above
--- NOTE | 2024-03-23 09:27 | EDPHYS ---
Physician Documentation [facility] Name: Zeke Mackay Sr Age: 59 yrs Sex: Male : 1965 Arrival Date: 03/23/2024 Time: 04:24 Bed 15 Private MD: ED Physician Emanuel England HPI: 03/23 05:28 This 59 yrs old Male presents to ER via Ambulatory with complaints of Fever. sp4 07:14 59-year-old male presents with acute onset of nausea and diaphoresis also feeling sp4 unwell. Presents with private auto. . 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 - Infectious Disease History:: Denies. - Social history:: Smoking status: unknown Patient uses street drugs, marijuana. - Family history:: not pertinent. ROS: 07:14 Constitutional: Negative for fever, chills, and weight loss, positive for diaphoresis, sp4 positive nausea, positive feeling unwell 07:14 All other systems are negative, Exam: 07:14 Constitutional: This is a well developed, well nourished patient who is awake, alert, sp4 patient is ill-appearing but nontoxic, hypertensive on arrival. Head/Face: Normocephalic, atraumatic. Eyes: Pupils equal round and reactive to light, extra-ocular motions intact. Lids and lashes normal. Conjunctiva and sclera are not injected. Cornea within normal limits. Periorbital areas with no swelling, redness, or edema. ENT: Nares patent. No nasal discharge, no septal abnormalities noted. Tympanic membranes are normal and external auditory canals are clear. Oropharynx with no redness, swelling, or masses, exudates, or evidence of obstruction, uvula midline. Mucous membranes moist. Neck: Trachea midline, no thyromegaly or masses palpated, and no cervical lymphadenopathy. Supple, full range of motion without nuchal rigidity, or vertebral point tenderness. Chest/axilla: Normal chest wall appearance and motion. Nontender with no deformity. No lesions are appreciated. Cardiovascular: Regular rate and rhythm with a normal S1 and S2. No gallops, murmurs, or rubs. Normal PMI, no JVD. No pulse deficits. Respiratory: Lungs have equal breath sounds bilaterally, clear to auscultation and percussion. No rales, rhonchi or wheezes noted. No increased work of breathing, no retractions or nasal flaring. Abdomen/GI: Soft, with normal bowel sounds. No distension or tympany. No guarding or rebound. No evidence of tenderness throughout. Back: No spinal tenderness. No costovertebral tenderness. Skin: Warm, dry with normal turgor. Normal color with no rashes, no lesions, and no evidence of cellulitis. MS/ Extremity: Pulses equal, no cyanosis. Neurovascular intact. Full, normal range of motion. Neuro: Awake and alert, GCS 15, oriented to person, place, time, and situation. Cranial nerves II-XII grossly intact. Motor strength 5/5 in all extremities. Sensory grossly intact. Psych: Awake, alert, with orientation to person, place and time. Behavior, mood, and affect are within normal limits 07:14 ECG was reviewed by the Attending Physician. EKG at this 0500 Vital Signs: 04:29 BP 190 / 87; Pulse 71; Resp 17 S; Pulse Ox 100% on R/A; Weight 82.55 kg; Height 5 ft. ha1 11 in. ; 05:37 BP 194 / 88; Pulse 64; Resp 19; Temp 98(O); Pulse Ox 96% ; rg5 06:45 BP 218 / 115; Pulse 71; Resp 19; Pulse Ox 96% on R/A; rg5 07:00 BP 194 / 88; Pulse 64; Resp 15; Pulse Ox 100% ; Pain 0/10; jl7 08:35 BP 217 / 80; Pulse 74; Resp 15; Pulse Ox 100% ; jl7 09:36 BP 204 / 86; Pulse 81; Resp 15; Pulse Ox 100% ; jl7 10:00 BP 187 / 93; Pulse 80; Resp 15; Pulse Ox 99% ; jl7 12:00 BP 182 / 87; Pulse 81; Resp 20; Pulse Ox 98% ; me1 13:00 BP 172 / 73; Pulse 83; Resp 22; Pulse Ox 98% ; me1 14:00 BP 139 / 59; Pulse 75; Resp 21; Pulse Ox 96% ; me1 15:00 BP 179 / 71; Pulse 76; Resp 14; Pulse Ox 98% ; me1 04:29 Body Mass Index 25.38 (82.55 kg, 180.34 cm) ha1 07:00 Pain Scale: Adult jl7 Alicia Coma Score: 07:14 Eye Response: spontaneous(4). Motor Response: obeys commands(6). Verbal Response: sp4 oriented(5). Total: 15. MDM: 05:29 Medical Screening Exam initiated sp4 07:17 Differential diagnosis: viral Infection, bacterial infection, URI, bronchitis, sp4 pneumonia UTI, gastroenteritis. Data reviewed: vital signs, nurses notes, old medical records, lab test result(s), EKG, radiologic studies, CT scan. Consideration of Admission/Observation Escalation of care including admission/observation considered. Transition of care: After a detail discussion of the patient's case, care is transferred to Emanuel England MD. 07:51 ED course: Signed out to me by Dr. Horvath, states patient presented with nausea and rn chills. Plan was to obtain chest abdomen pelvis and likely admit given elevated lipase. Patient evaluated after signout, reports nausea and chills and not feeling well that began last night. Denies ever having any chest pain or dyspnea. No abdominal pain. Reports nasal congestion but no other acute symptoms.. 09:26 Counseling: I had a detailed discussion with the patient and/or guardian regarding the rn historical points, exam findings, and any diagnostic results supporting the discharge/admit diagnosis, lab results, radiology results, the need for further work-up and treatment in the hospital. 09:27 ED course: No acute findings on imaging. Shows gastritis, labs possible pancreatitis. rn Still very hypertensive despite clonidine and hydralazine. Will admit for further evaluation and care.. 09:27 ED course: I personally spent 35 minutes engaged in work directly related to the rn individual patient's care. This does not include any time spent performing procedures. The patient has been deemed critically ill because of extremely high blood pressure requiring oral and IV antihypertensive medication for control.. 03/23 04:40 Order name: CBC with Diff; Complete Time: 07:02 ha1 03/23 04:50 Order name: Glucose, Ancillary Testing; Complete Time: 05:29 EDMS 03/23 05:05 Order name: Basic Metabolic Panel; Complete Time: 07:02 [facility] 03/23 05:05 Order name: LFT's; Complete Time: 07:02 [facility] 03/23 05:05 Order name: Magnesium; Complete Time: 07:02 03/23 05:05 Order name: NT PRO-BNP; Complete Time: 07:02 03/23 05:05 Order name: PT-INR; Complete Time: 07:02 [facility] 03/23 05:05 Order name: Troponin HS; Complete Time: 07:02 [facility] 03/23 05:28 Order name: SARS RAPID; Complete Time: 07:04 [facility] 03/23 05:28 Order name: Influenza Screen (a \T\ B); Complete Time: 07:27 [facility] 03/23 05:32 Order name: Lipase; Complete Time: 07:02 [facility] 03/23 05:05 Order name: XRAY Chest (1 view) [facility] 03/23 07:04 Order name: CT Chest, Abdomen, Pelvis - W/Contrast; Complete Time: 09:21 [facility] 03/23 05:05 Order name: EKG; Complete Time: 05:06 03/23 04:40 Order name: IV Saline Lock; Complete Time: 07:19 [facility] 03/23 04:40 Order name: Labs collected and sent; Complete Time: 05:37 03/23 04:44 Order name: EKG - Nurse/Tech; Complete Time: 05:06 03/23 05:05 Order name: Cardiac monitoring; Complete Time: 05:06 03/23 05:05 Order name: O2 Per Protocol; Complete Time: 05:06 03/23 05:05 Order name: O2 Sat Monitoring; Complete Time: 05:06 EC:14 Rate is 66 beats/min. Rhythm is regular, Normal Sinus Rhythm. QRS [place] is Normal. [place] sp4 interval is normal. QRS interval is normal. QT interval is normal. No Q waves. T waves are Normal. No ST changes noted. Clinical impression: No evidence of ischemia. Interpreted by me. Reviewed by me. Administered Medications: 05:30 Drug: Ondansetron IVP 4 mg IVP once; over 2 minutes Route: IVP; Site: left antecubital; rg5 07:00 Follow up: Response: No adverse reaction jl7 06:30 Drug: NS 0.9% IV 1000 ml IV at 1 bolus Per protocol; to be given as a bolus over 60 rg5 minutes Route: IV; Rate: 1 bolus; Site: left hand; 09:34 Follow up: Response: No adverse reaction; IV Status: Completed infusion; IV Intake: jl7 1000ml 06:35 Drug: Ondansetron IVP 4 mg IVP once; over 2 minutes Route: IVP; Site: left hand; rg5 07:00 Follow up: Response: No adverse reaction jl7 06:35 Drug: Famotidine IVP 20 mg IVP once; dilute with 10 mL 0.9% NaCl; give over 2 minutes rg5 Route: IVP; Site: left hand; 07:00 Follow up: Response: No adverse reaction jl7 06:35 Drug: metoCLOPramide IVP 10 mg IVP once; over 1 to 2 minutes Route: IVP; Site: left rg5 hand; 07:00 Follow up: Response: No adverse reaction jl7 06:57 Drug: Dicyclomine PO 20 mg PO once Route: PO; rg5 07:00 Follow up: Response: No adverse reaction jl7 07:13 Drug: cloNIDine PO 0.2 mg PO once {Note: given sublingual.} Route: PO; rg5 08:00 Follow up: Response: No adverse reaction; Blood pressure is unchanged jl7 07:14 CANCELLED (Inappropriate at this time): ns 0.9% 1000 ml IV at 1000 ml once; to be given sp4 as a bolus over 60 minutes 07:18 Not Given (Duplicate Order): [id number] mg PO once ha1 07:18 Not Given (Duplicate Order): ondansetron4 mg PO once ha1 07:19 Not Given (Duplicate Order): [id number] mg PO once ha1 08:07 Drug: Promethazine IVP 12.5 mg IVP once Route: IVP; Site: right antecubital; jl7 08:30 Follow up: Response: No adverse reaction; Nausea is decreased jl7 08:40 Drug: hydrALAZINE IVP 20 mg IVP once Route: IVP; Site: right antecubital; jl7 09:33 Follow up: Response: No adverse reaction; Blood pressure is unchanged jl7 09:49 Drug: Promethazine IVP 12.5 mg IVP once Route: IVP; Site: left hand; jl7 12:17 Follow up: Response: No adverse reaction; Nausea is decreased jl7 11:17 Drug: Potassium Chloride IV 20 mEq IV at calculated rate once; administer over 1-2 jl7 hours Route: IV; Rate: calculated rate; Site: left hand; 12:17 Follow up: IV Status: Infusion continued upon admission jl7 Disposition Summary: 03/23/24 09:27 Hospitalization Ordered Notes: Hospitalization Status: Observation rn Provider: Gillian Hunt rn Location: Telemetry/MedSurg (observation) rn Condition: Stable rn Problem: new rn Symptoms: are unchanged rn Bed/Room Type: Standard rn Room Assignment: 201(03/23/24 13:59) bd Diagnosis - Other acute pancreatitis without necrosis or infection rn - Gastritis, unspecified rn - Essential (primary) hypertension rn Forms: - Medication Reconciliation Form rn - SBAR form rn - Leadership Thank You Letter 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 Total time: 35 rn minutes Signatures: Dispatcher [employer] EDMS Winnie Benítez Roman, MD MD rn Attema, Lee, SENIOR TAX SPECIALIST-C SENIOR TAX SPECIALIST-Cla1 Sue Carey RN RN jl7 Moni Douglas, RN RN ha1 Jag Horvath MD MD sp4 Alec Fuentes, RN RN rg5 Corrections: (The following items were deleted from the chart) 04:41 04:41 CBC+H.LAB.BRZ ordered. EDMS EDMS 05:06 05:06 BASIC METABOLIC PANEL+C.LAB.BRZ ordered. EDMS EDMS 05:06 05:06 HEPATIC FUNCTION+C.LAB.BRZ ordered. EDMS EDMS 05:06 05:06 MAGNESIUM+C.LAB.BRZ ordered. EDMS EDMS 05:06 05:06 PROBNP+C.LAB.BRZ ordered. EDMS EDMS 05:06 05:06 PROTIME (+INR)+COAG.LAB.BRZ ordered. EDMS EDMS 05:06 05:06 Troponin High Sensitivity+C.LAB.BRZ ordered. EDMS EDMS 05:32 04:41 COMPREHENSIVE METABOLIC PANEL+C.LAB.BRZ ordered. EDMS EDMS 05:32 04:41 LIPASE+C.LAB.BRZ ordered. EDMS EDMS 07:14 07:03 NS 0.9% IV 1000 ml IV at 1000 ml once; to be given as a bolus over 60 minutes sp4 ordered. sp4 13:59 09:27 rn bd
--- NOTE | 2024-03-23 09:27 | ER ---
[facility]'s Notes [facility] Name[facility] Zeke Mack[facility] Sr Age: 59 yrs Sex: Male : 1965 Arrival Date: 03/23/2024 Time: 04:24 Bed 15 Private MD: Diagnosis: Other acute pancreatitis without necrosis or infection;Gastritis, unspecified;Essential (primary) hypertension Presentation: 03/23 04:29 Chief complaint: Patient states: sudden onset of sweetness, cold, and clammy. ha1 04:29 Coronavirus screen: At this time, the client does not indicate any symptoms associated ha1 with coronavirus-19. Ebola Screen: No symptoms or risks identified at this time. Initial Sepsis Screen: Does the patient meet any 2 criteria? No. Patient's initial sepsis screen is negative. Does the patient have a suspected source of infection? No. Patient's initial sepsis screen is negative. Risk Assessment: Do you want to hurt yourself or someone else? Patient reports no desire to harm self or others. Onset of symptoms was March 23, 2024. 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 - Infectious Disease History:: Denies. - Social history:: Smoking status: unknown Patient uses street drugs, marijuana. - Family history:: not pertinent. Screenin:35 [facility] ED Fall Risk Assessment (Adult) History of falling in the last 3 months, rg5 including since admission No falls in past 3 months (0 pts) Confusion or Disorientation No (0 pts) Intoxicated or Sedated No (0 pts) Impaired Gait No (0 pts) Mobility Assist Device Used No (0 pt) Altered Elimination No (0 pt) Score/Fall Risk Level 0 - 2 = Low Risk Oriented to surroundings, Maintained a safe environment, Hourly rounding (assess needs \T\ fall precautionary measures) done. Abuse screen: Denies threats or abuse. Nutritional screening: No deficits noted. Tuberculosis screening: No symptoms or risk factors identified. Assessment: 04:35 General: Appears in no apparent distress. Behavior is calm, cooperative, appropriate rg5 for age. 04:35 Pain: Denies pain. Neuro: Level of Consciousness is awake, alert, Oriented to person, rg5 place, time. Cardiovascular: Patient's skin is warm and dry. Respiratory: Airway is patent Trachea midline Respiratory effort is even, Respiratory pattern is regular, symmetrical. GI: Reports cramping, nausea, vomiting. : No signs and/or symptoms were reported regarding the genitourinary system. EENT: No deficits noted. Derm: Skin is fragile, Skin is diaphoretic, Skin is normal. Musculoskeletal: Circulation, motion, and sensation intact. Range of motion: intact in all extremities. 05:30 Reassessment: No changes from previously documented assessment. Patient and/or family rg5 updated on plan of care and expected duration. Pain level reassessed. Patient is alert, oriented x 3, equal unlabored respirations, skin warm/dry/pink. 07:00 General: Appears in no apparent distress. uncomfortable, Behavior is calm, cooperative, jl7 appropriate for age. Pain: Denies pain. Neuro: Level of Consciousness is awake, alert, obeys commands, Oriented to person, place, time, situation. Cardiovascular: Denies chest pain, Patient's skin is warm and dry. Respiratory: Airway is patent Respiratory effort is even, unlabored, Respiratory pattern is regular, symmetrical. GI: Abdomen is round non-distended, Last BM was March 20, 2024. Bowel sounds present X 4 quads. Abd is soft and non tender X 4 quads. Reports constipation, nausea, vomiting. : No signs and/or symptoms were reported regarding the genitourinary system. Derm: Skin is pink, warm \T\ dry. 07:09 GI: Pt is actively vomiting. rg5 07:30 Reassessment: Dr. England at bedside assessing pt and discussing POC. jl7 07:48 Reassessment: additional IV placed as requested by hazardous material technicianJesusita. Dr. England aware and ss pt to CT at this time VIA stretcher. 08:04 Reassessment: Pt at CT, reports nausea, Dr. England notified, see [facility] for orders. jl7 09:00 Reassessment: Patient appears in no apparent distress at this time. No changes from jl7 previously documented assessment. Patient and/or family updated on plan of care and expected duration. Pain level reassessed. Patient is alert, oriented x 3, equal unlabored respirations, skin warm/dry/pink. 09:50 Reassessment: Pt actively vomiting, see MAR for orders. jl7 12:00 Reassessment: Patient and/or family updated on plan of care and expected duration. Pain me1 level reassessed. Patient is alert, oriented x 3, equal unlabored respirations, skin warm/dry/pink. Vital Signs: 04:29 BP 190 / 87; Pulse 71; Resp 17 S; Pulse Ox 100% on R/A; Weight 82.55 kg; Height 5 ft. ha1 11 in. ; 05:37 BP 194 / 88; Pulse 64; Resp 19; Temp 98(O); Pulse Ox 96% ; rg5 06:45 BP 218 / 115; Pulse 71; Resp 19; Pulse Ox 96% on R/A; rg5 07:00 BP 194 / 88; Pulse 64; Resp 15; Pulse Ox 100% ; Pain 0/10; jl7 08:35 BP 217 / 80; Pulse 74; Resp 15; Pulse Ox 100% ; jl7 09:36 BP 204 / 86; Pulse 81; Resp 15; Pulse Ox 100% ; jl7 10:00 BP 187 / 93; Pulse 80; Resp 15; Pulse Ox 99% ; jl7 12:00 BP 182 / 87; Pulse 81; Resp 20; Pulse Ox 98% ; me1 13:00 BP 172 / 73; Pulse 83; Resp 22; Pulse Ox 98% ; me1 14:00 BP 139 / 59; Pulse 75; Resp 21; Pulse Ox 96% ; me1 15:00 BP 179 / 71; Pulse 76; Resp 14; Pulse Ox 98% ; me1 04:29 Body Mass Index 25.38 (82.55 kg, 180.34 cm) ha1 07:00 Pain Scale: Adult jl7 Alicia Coma Score: 07:14 Eye Response: spontaneous(4). Motor Response: obeys commands(6). Verbal Response: sp4 oriented(5). Total: 15. ED Course: 04:27 Patient arrived in ED. jj6 04:32 Alec Fuentes, RN is Primary Nurse. rg5 04:35 Patient has correct armband on for positive identification. rg5 04:35 No provider procedures requiring assistance completed. Missed attempt(s): 20 gauge in rg5 right antecubital area. Patient maintains SpO2 saturation greater than 95% on room air. 04:43 Triage completed. ha1 04:50 Missed attempt(s): 20 gauge in left antecubital area. Bleeding controlled, band aid ha1 applied, catheter tip intact. 05:02 Jag Horvath MD is Attending Physician. ha1 05:05 Missed attempt(s): 20 gauge in right forearm. Bleeding controlled, band aid applied, ha1 catheter tip intact. 05:43 XRAY Chest (1 view) In Process Unspecified. EDMS 06:30 Inserted saline lock: 24 gauge in left hand, using aseptic technique. Blood collected. ha1 Flushed with 10 mL NS. 07:00 Arm band placed on right wrist. jl7 07:13 Radiology exam delayed due to IV insertion attempt and/or patient not having ls3 appropriate IV at this time. 07:15 Provided Education on: Use of call ortega. Warm blanket given. jl7 07:15 Missed attempt(s): 22 gauge in left antecubital area. Bleeding controlled, band aid jl7 applied, catheter tip intact. 07:31 Primary Nurse role handed off by Alec Fuentes RN jl7 07:32 Sue Carey RN is Primary Nurse. jl7 07:48 Accessed peripheral vein via ultrasound, utilizing dynamic ultrasound technique using ss 20G Nexia IV catheter ,sterile technique, per hospital protocol. Clean \T\ dry. Good blood return. Flushes easily. 07:49 Attending Physician role handed off by Jag Horvath MD rn 07:49 Emanuel England MD is Attending Physician. rn 08:27 CT Chest, Abdomen, Pelvis - W/Contrast In Process Unspecified. EDMS 09:26 Gillian Hunt MD is Hospitalizing Provider. rn 12:19 Primary Nurse role handed off by Sue Carey RN jl7 13:37 Sonia Jones, ARTURO is Primary Nurse. me1 15:38 Patient admitted, IV remains in place. me1 Administered Medications: 05:30 Drug: Ondansetron IVP 4 mg IVP once; over 2 minutes Route: IVP; Site: left antecubital; rg5 07:00 Follow up: Response: No adverse reaction jl7 06:30 Drug: NS 0.9% IV 1000 ml IV at 1 bolus Per protocol; to be given as a bolus over 60 rg5 minutes Route: IV; Rate: 1 bolus; Site: left hand; 09:34 Follow up: Response: No adverse reaction; IV Status: Completed infusion; IV Intake: jl7 1000ml 06:35 Drug: Ondansetron IVP 4 mg IVP once; over 2 minutes Route: IVP; Site: left hand; rg5 07:00 Follow up: Response: No adverse reaction jl7 06:35 Drug: Famotidine IVP 20 mg IVP once; dilute with 10 mL 0.9% NaCl; give over 2 minutes rg5 Route: IVP; Site: left hand; 07:00 Follow up: Response: No adverse reaction jl7 06:35 Drug: metoCLOPramide IVP 10 mg IVP once; over 1 to 2 minutes Route: IVP; Site: left rg5 hand; 07:00 Follow up: Response: No adverse reaction jl7 06:57 Drug: Dicyclomine PO 20 mg PO once Route: PO; rg5 07:00 Follow up: Response: No adverse reaction jl7 07:13 Drug: cloNIDine PO 0.2 mg PO once {Note: given sublingual.} Route: PO; rg5 08:00 Follow up: Response: No adverse reaction; Blood pressure is unchanged jl7 07:14 CANCELLED (Inappropriate at this time): ns 0.9% 1000 ml IV at 1000 ml once; to be given sp4 as a bolus over 60 minutes 07:18 Not Given (Duplicate Order): [id number] mg PO once ha1 07:18 Not Given (Duplicate Order): ondansetron4 mg PO once ha1 07:19 Not Given (Duplicate Order): [id number] mg PO once ha1 08:07 Drug: Promethazine IVP 12.5 mg IVP once Route: IVP; Site: right antecubital; jl7 08:30 Follow up: Response: No adverse reaction; Nausea is decreased jl7 08:40 Drug: hydrALAZINE IVP 20 mg IVP once Route: IVP; Site: right antecubital; jl7 09:33 Follow up: Response: No adverse reaction; Blood pressure is unchanged jl7 09:49 Drug: Promethazine IVP 12.5 mg IVP once Route: IVP; Site: left hand; jl7 12:17 Follow up: Response: No adverse reaction; Nausea is decreased jl7 11:17 Drug: Potassium Chloride IV 20 mEq IV at calculated rate once; administer over 1-2 jl7 hours Route: IV; Rate: calculated rate; Site: left hand; 12:17 Follow up: IV Status: Infusion continued upon admission jl7 Medication: 04:35 VIS not applicable for this client. rg5 Intake: 09:34 IV: 1000ml; Total: 1000ml. jl7 Outcome: 09:27 Decision to Hospitalize by Provider. rn 15:39 Admitted to Med/surg accompanied by tech, via wheelchair, room 201, with chart, Report me1 called to faxed, receipt confirmed with Johana 15:39 Condition: stable 15:39 Instructed on the need for admit, 15:41 Patient left the ED. me1 Signatures: Dispatcher [employer] EDMS Emanuel England MD MD rn Blanchard, Shelby, RN RN ss Leal, Jahala, RN RN jl7 Samantha Dillard ls3 Adriana Christie jj6 Moni Douglas RN RN ha1 Potepalov, Sergey, MD MD sp4 Sonia Jones RN RN me1 Alec Fuentes RN RN rg5 Corrections: (The following items were deleted from the chart) 07:41 07:09 Reassessment: No changes from previously documented assessment. Patient and/or jl7 family updated on plan of care and expected duration. Pain level reassessed. Patient is alert, oriented x 3, equal unlabored respirations, skin warm/dry/pink. rg5
[2024-03-23] MEDS ORDERED: KCL 20 MEQ/100 mL IVPB 100 ML IV ONE (10:49)
--- NOTE | 2024-03-23 12:13 | EKG ---
Test Date: 2024-03-23 Test Time: 05:00:29 Light Rail Signal Technician: RENNY MEASUREMENT RESULTS: Intervals: Rate: 66 CA: 156 QRSD: 94 QT: 446 QTc: 467 [place]: P: 66 CA: 156 QRS: 86 T: 230 INTERPRETIVE STATEMENTS: Normal sinus rhythm Lateral infarct, age undetermined ST & T wave abnormality, consider inferior ischemia Abnormal ECG Compared to ECG 02/27/2024 09:17:59 Myocardial infarct finding now present Sinus arrhythmia no longer present Prolonged QT interval no longer present ST (T wave) deviation still present Possible ischemia still present Electronically Signed On 03-23-24 12:12:44 RUSSIAN HISTORY PROFESSOR by Lucas Huang
[2024-03-23] MEDS ORDERED: SODIUM CHLORIDE 0.9% 10ML INJ IV PRN (14:19)
[2024-03-23] MEDS ORDERED: HYDRALAZINE HCL 20 MG/ML VIAL IV PRN (14:19)
[2024-03-23] MEDS: INSULIN REGULAR (HUMAN) 100 UNIT/ML SQ SCH (14:19)
--- NOTE | 2024-03-23 14:58 | P.HP ---
Certification for Inpatient Patient admitted to: Inpatient Patient will require the following post-hospital care: None Practitioner: I am a practitioner with admitting privileges, knowledge of patient current condition, hospital course, and medical plan of care. Services: Services provided to patient in accordance with Admission requirements found in Title 42 Section 412.3 of the Code of Federal Regulations Patient History Date of Service: 03/23/24 Reason for admission: Intractable vomiting History of Present Illness: 59-year-old male with history of CAD with 5 vessel CABG, renal cell carcinoma with recent partial left nephrectomy, diabetes mellitus type 2insulin- dependent, atrial fibrillation, hyperlipidemia, hypertension presented to the emergency department earlier this morning for nausea and vomiting. He reports similar symptoms to his recent admission from 02/28/24. His labs are significant for hypokalemia with a potassium of 2.7, CT chest abdomen pelvis was performed which showed improved wall thickening of the proximal stomach, some residual wall thickening along the antrum through the first part of duodenum. Persistent right hydronephrosis without evidence of obstruction. Patient was given multiple rounds of antiemetics without any improvement, his lipase was also moderately elevated but patient had no epigastric pain or tenderness. Blood pressure is also markedly elevated, patient reports he has been monitoring his blood pressure at home and has been in the 120s to 130s, seems to like this when he is unwell. Patient was admitted for further evaluation and management of intractable vomiting, gastritis. Anticipate hospitalization greater than 2 midnights Allergies No Known Allergies Allergy (Verified 08/17/20 20:54) Home Medications: Aspirin Chewable [Aspirin Chewable*] 1 tab PO DAILY 02/27/24 Atorvastatin Calcium 1 tab PO BEDTIME 02/27/24 Clopidogrel Bisulfate [Plavix] 1 tab PO DAILY 02/27/24 Metoprolol Tartrate 0.5 tab PO Q12H 02/27/24 Dapagliflozin Propanediol [Farxiga] 1 tab PO DAILY 02/28/24 Insulin Glargine/Lixisenatide [Soliqua 100 Unit-33 Mcg/ml Pen] 60 units SQ DAILY 02/28/24 Metformin HCl 2 tab PO DAILY 02/28/24 Amlodipine [Norvasc*] 5 mg PO DAILY #30 tab 02/29/24 Pantoprazole [Protonix Tab] 40 mg PO BID #44 tab 02/29/24 Sucralfate [Carafate*] 10 ml PO ACHS PRN #1200 ml 02/29/24 - Past Medical/Surgical History Diabetic: Yes -: Neuropathy -: Diabetes -: Hyperlipidemia -: Osteomyelitis -: AFib -: RENAL CELL CARCINOMA -: HTN -: lap appy -: L wrist fx repair -: R hand fx repair -: c3-6 fused -: amputations to right pinky toe, left big toe Psychosocial/ Personal History: Patient is retired, lives with his and children - Family History Father -: Diabetes, Other (see notes) Notes: Stroke - Social History Alcohol use: No CD- Drugs: Yes Caffeine use: Yes Place of Residence: Home Review of Systems 10-point ROS is otherwise unremarkable Gastrointestinal: Nausea, Vomiting Physical Examination - Physical Exam General: Alert, In no apparent distress, Oriented x3 HEENT: Atraumatic, PERRLA, EOMI Neck: Supple, 2+ carotid pulse no bruit, No LAD Respiratory: Clear to auscultation bilaterally, Normal air movement Cardiovascular: Regular rate/rhythm, Normal S1 S2 Gastrointestinal: Normal bowel sounds, No tenderness Musculoskeletal: No tenderness Integumentary: No rashes Neurological: Normal speech, Normal strength at 5/5 x4 extr, Normal tone Lymphatics: No axilla or inguinal lymphadenopathy - Studies Laboratory Data (last 24 hrs) 03/23/24 03/23/24 03/23/24 06:13 06:13 06:13 WBC 7.60 Hgb 12.5 L Hct 37.5 L Plt Count 296 PT 11.7 INR 1.05 Sodium 136 Potassium 2.7 L BUN 16 Creatinine 1.33 H Glucose 163 H Magnesium 1.7 Total Bilirubin 0.4 AST 15 ALT 15 L Alkaline Phosphatase 86 Lipase 344 H 03/23/24 04:40 WBC Hgb Hct Plt Count PT INR Sodium Cancelled Potassium Cancelled BUN Cancelled Creatinine Cancelled Glucose Cancelled Magnesium Total Bilirubin Cancelled AST Cancelled ALT Cancelled Alkaline Phosphatase Cancelled Lipase Cancelled Microbiology Data (last 24 hrs): 03/23/24 06:25 Nasopharnyx Influenza Type A Antigen Screen - Final 03/23/24 06:25 Nasopharnyx Influenza Type B Antigen Screen - Final Assessment and Plan - Plan Assessment: Intractable vomiting Gastritis/esophagitis/duodenitis Elevated lipase Hypokalemia Chronic atrial fibrillation Hypertension Hyperlipidemia CAD with previous CABG Right-sided hydronephrosis Partial left nephrectomy Plan: Intractable vomiting Gastritis/esophagitis/duodenitis Elevated lipase Hypokalemia N.p.o. aside from meds, ice chips Twice daily PPI, Carafate ACHS Consult GI-Dr. Simeon Monitor labs including CMP and lipase daily Chronic atrial fibrillation Hypertension Hyperlipidemia CAD with previous CABG Continue home medications when verified/tolerating p.o. Right-sided hydronephrosis Partial left nephrectomy Stable from previous imaging Renal function intact, continue gentle IV fluids Outpatient follow-up with urology recommended DVT PPX: Lovenox Code status: Full Discharge Plan: Home Plan to discharge in: 48 Hours - Advance Directives Does patient have a Living Will: No Does patient have a Durable POA for Healthcare: No - Code Status/Comfort Care Code Status Assessed: Yes (Full code) Critical Care: No Time Spent Managing Pts Care (In Minutes): 65
[2024-03-23] MEDS: ONDANSETRON 4 MG/2 ML VIAL IV PRN (16:03)
[2024-03-23] MEDS: SUCRALFATE 1GM/10ML UCUP PO SCH (16:03)
[2024-03-23] MEDS: NA CHLORIDE 0.9% 1,000 ML IV SCH (16:03)
[2024-03-23] MEDS ORDERED: POTASSIUM CL 40 MEQ in NA CHLORIDE 0.9% 500 ML IV SCH (19:00)
[2024-03-23] MEDS: KCL 20 MEQ/100 mL IVPB 100 ML IV SCH (20:04)
[2024-03-23] MEDS: PANTOPRAZOLE 40 MG INJ IVP SCH (20:04)
[2024-03-24] MEDS: PROMETHAZINE INJ 25 MG/ML AMP IV PRN (02:17)
[2024-03-24 05:41] LABS: Absolute Basophils 0.1 K/uL (0-0.5); Absolute Lymphocytes (CBC) 1.5 K/uL (0.7-4.9); Absolute Monocytes 0.5 K/uL (0.1-1.3); Absolute Neutrophil 4.9 K/uL (1.8-8.0); Basophils % 0.8 % (0-1.3); Eosinophils % 0.3 % (0-4.4); Hematocrit 35.1 % (39.6-49.0); Hemoglobin 11.6 g/dL (13.6-17.9); Lymphocytes % 21.4 % (15.3-44.8); MCH 25.3 pg (27.0-35.0); MCHC 33.1 g/dL (32.0-36.0); MCV 76.4 fL (80-100); MPV 7.3 fL (7.6-11.3); Monocytes % 7.2 % (3.3-12.3); Neutrophils % 70.3 % (41.7-73.7); Nucleated Red Blood Cells % 0.1 % (0-0); Platelets 300 thou/uL (152-406); RBC Red Blood Cell Count 4.59 M/uL (4.33-5.43); Red Cell Distribution Width 16.3 % (12.1-15.2)
[2024-03-24 05:59] LABS: ALT/SGPT < 14 U/L (16-61); AST/SGOT 13 U/L (15-37); Albumin 3.1 g/dL (3.4-5.0); Albumin/Globulin Ratio 0.8 (1.1-1.8); Alkaline Phosphatase 72 U/L (45-117); Anion Gap 8.1 mEq/L (5.0-15.0); BUN Blood Urea Nitrogen 18 mg/dL (7-18); Bicarbonate 28 mEq/L (21-32); Bilirubin Total 0.4 mg/dL (0.2-1.0); Globulin 3.8 g/dL (2.3-3.5); Glomerular Filtration Rate 76 ml/min (=/>90); Glucose Level 105 mg/dL (74-106); Lipase 64 U/L (13-75); Magnesium 1.6 mg/dL (1.6-2.4); Potassium 3.1 mEq/L (3.5-5.1); Protein, Total 6.9 g/dL (6.4-8.2); Sodium Level 140 mEq/L (136-145); Thyroid Stimulating Hormone 0.477 uIU/mL (0.358-3.740); Troponin High Sensitivity 48.9 pg/mL (<58.9)
[2024-03-24] MEDS: METOPROLOL TAR 25 MG TAB PO SCH (06:23)
[2024-03-24] MEDS: CLOPIDOGREL 75 MG TABLET PO SCH (09:00)
[2024-03-24] MEDS: ASPIRIN 81 MG CHEWABLE TABLET PO SCH (09:00)
[2024-03-24] MEDS: ENOXAPARIN 40 MG/0.4 ML SQ SCH (09:00)
[2024-03-24] MEDS: MAGNESIUM SULFATE 1 gm IVPB 1 GM/100 ML BAG IV ONE (09:00)
[2024-03-24] MEDS: POTASSIUM CL SA 10 MEQ TAB PO ONE (09:00)
[2024-03-24] MEDS: AMLODIPINE 5 MG TAB PO SCH (09:00)
[2024-03-24] MEDS ORDERED: LIDOCAINE 1% MPF 30 ML VIAL ONE (10:10)
[2024-03-24] MEDS ORDERED: propofoL 200 MG/20 ML VIAL IV ONE (10:10)
[2024-03-24 10:53] VITALS: O2SAT 97
--- NOTE | 2024-03-24 13:59 | P.PN ---
Date of Service: 03/24/24 Subjective: Still having nausea, vomiting overnight Symptoms mildly improved GI performed EGD today ROS: 10 point ROS as noted above, otherwise negative Physical exam GEN: Alert, oriented, NAD HEENT: Normal conjunctiva, sclera anicteric CV: Regular rate and rhythm, no edema Pulm: Nonlabored respirations on room air ABD: Soft, nontender, nondistended MSK: No joint tenderness Integumentary: No rashes Neuro: Normal speech, normal affect Vitals reviewed Assessment: Intractable vomiting EGD showing Gastric retention, gastritis, gastric deformity, pyloric stenosis (gastric outlet obstruction) Elevated lipase Hypokalemia Chronic atrial fibrillation Hypertension Hyperlipidemia CAD with previous CABG Right-sided hydronephrosis Partial left nephrectomy Plan: Intractable vomiting EGD showing Gastric retention, gastritis, gastric deformity, pyloric stenosis (gastric outlet obstruction) Elevated lipase Hypokalemia EGD performed 03/24 shows some gastric retention, chronic gastritis, gastric deformity, gastric outlet obstruction with pyloric stenosis Multiple biopsies taken Twice daily PPI, Carafate ACHS Plan for follow-up with GI in 2 weeks Cleared to full liquid diet only until follow-up Monitor labs including CMP and lipase daily Lipase now within normal limits, did not have epigastric pain or CT findings consistent with pancreatitis, doubt pancreatitis Chronic atrial fibrillation Hypertension Hyperlipidemia CAD with previous CABG Continue home medications when verified/tolerating p.o. Right-sided hydronephrosis Partial left nephrectomy Stable from previous imaging Renal function intact, continue gentle IV fluids Outpatient follow-up with urology recommended DVT PPX: Lovenox Code status: Full Discharge Plan: Home Plan to discharge in: 48 Hours Time Spent Managing Pts Care (In Minutes): 35
[2024-03-24 14:15] VITALS: BMI 28.5
[2024-03-24] MEDS: ATORVASTATIN 40 MG TAB PO SCH (21:32)
[2024-03-24] MEDS: KCL 20 MEQ/100 mL IVPB 20 MEQ/100 ML BAG IV ONE (21:33)
[2024-03-25 05:12] LABS: Absolute Basophils 0.1 K/uL (0-0.5); Absolute Eosinophils 0.1 K/uL (0-0.5); Absolute Lymphocytes (CBC) 1.9 K/uL (0.7-4.9); Absolute Monocytes 0.5 K/uL (0.1-1.3); Absolute Neutrophil 4.2 K/uL (1.8-8.0); Basophils % 1.1 % (0-1.3); Eosinophils % 1.5 % (0-4.4); Hematocrit 34.3 % (39.6-49.0); Hemoglobin 11.3 g/dL (13.6-17.9); Lymphocytes % 28.3 % (15.3-44.8); MCH 25.4 pg (27.0-35.0); MCHC 33.1 g/dL (32.0-36.0); MCV 76.6 fL (80-100); MPV 7.3 fL (7.6-11.3); Monocytes % 7.2 % (3.3-12.3); Neutrophils % 61.9 % (41.7-73.7); Nucleated Red Blood Cells % 0.1 % (0-0); Platelets 262 thou/uL (152-406); RBC Red Blood Cell Count 4.47 M/uL (4.33-5.43); Red Cell Distribution Width 16.1 % (12.1-15.2)
[2024-03-25 05:33] LABS: AST/SGOT 12 U/L (15-37); Albumin 2.9 g/dL (3.4-5.0); Albumin/Globulin Ratio 0.9 (1.1-1.8); Alkaline Phosphatase 68 U/L (45-117); Anion Gap 5.2 mEq/L (5.0-15.0); BUN Blood Urea Nitrogen 15 mg/dL (7-18); Bicarbonate 30 mEq/L (21-32); Bilirubin Total 0.5 mg/dL (0.2-1.0); Globulin 3.4 g/dL (2.3-3.5); Glomerular Filtration Rate 89 ml/min (=/>90); Glucose Level 114 mg/dL (74-106); Lipase 113 U/L (13-75); Magnesium 1.6 mg/dL (1.6-2.4); Potassium 3.2 mEq/L (3.5-5.1); Protein, Total 6.3 g/dL (6.4-8.2); Sodium Level 139 mEq/L (136-145)
[2024-03-25 05:38] LABS: ALT/SGPT < 14 U/L (16-61)
[2024-03-25] MEDS: INSULIN REGULAR (HUMAN) 100 UNIT/ML SQ SCH (07:30)
[2024-03-25] MEDS: POTASSIUM 25 MEQ EFFERV TAB PO ONE (08:31)
[2024-03-25] MEDS: MAGNESIUM SULFATE 1 gm IVPB 1 GM/100 ML BAG IV ONE (08:31)
--- NOTE | 2024-03-25 08:48 | P.PN ---
Date of Service: 03/25/24 Subjective: Still having nausea but improving No further vomiting since yesterday Symptoms mildly improved S/P EGD yesterday ROS: 10 point ROS as noted above, otherwise negative Physical exam GEN: Alert, oriented, NAD HEENT: Normal conjunctiva, sclera anicteric CV: Regular rate and rhythm, no edema Pulm: Nonlabored respirations on room air ABD: Soft, nontender, nondistended MSK: No joint tenderness Integumentary: No rashes Neuro: Normal speech, normal affect Vitals reviewed Assessment: Intractable vomiting EGD showing Gastric retention, gastritis, gastric deformity, pyloric stenosis (gastric outlet obstruction) Elevated lipase Hypokalemia Chronic atrial fibrillation Hypertension Hyperlipidemia CAD with previous CABG Right-sided hydronephrosis Partial left nephrectomy Plan: Intractable vomiting EGD showing Gastric retention, gastritis, gastric deformity, pyloric stenosis (gastric outlet obstruction) Elevated lipase Hypokalemia EGD performed 03/24 shows some gastric retention, chronic gastritis, gastric deformity, gastric outlet obstruction with pyloric stenosis Multiple biopsies taken Twice daily PPI, Carafate ACHS Plan for follow-up with GI in 2 weeks Cleare to full liquid diet only until follow-up Monitor labs including CMP and lipase daily Lipase now within normal limits, did not have epigastric pain or CT findings consistent with pancreatitis, doubt pancreatitis Slowly improving Possible DC 24-48 hours Chronic atrial fibrillation Hypertension Hyperlipidemia CAD with previous CABG Continue home medications and when verified/tolerating p.o. Right-sided hydronephrosis Partial left nephrectomy Stable from previous imaging Renal function intact, continue gentle IV fluids Outpatient follow-up with urology recommended DVT PPX: Lovenox Code status: Full Discharge Plan: Home Plan to discharge in: 48 Hours Time Spent Managing Pts Care (In Minutes): 35
[2024-03-26 04:19] VITALS: TEMP 97.3
[2024-03-26 05:23] LABS: Absolute Basophils 0.1 K/uL (0-0.5); Absolute Eosinophils 0.2 K/uL (0-0.5); Absolute Lymphocytes (CBC) 1.8 K/uL (0.7-4.9); Absolute Monocytes 0.5 K/uL (0.1-1.3); Absolute Neutrophil 3.5 K/uL (1.8-8.0); Basophils % 1.2 % (0-1.3); Eosinophils % 2.6 % (0-4.4); Hematocrit 36.6 % (39.6-49.0); Hemoglobin 11.5 g/dL (13.6-17.9); Lymphocytes % 30.1 % (15.3-44.8); MCH 24.4 pg (27.0-35.0); MCHC 31.3 g/dL (32.0-36.0); MCV 77.7 fL (80-100); MPV 7.3 fL (7.6-11.3); Monocytes % 8.3 % (3.3-12.3); Neutrophils % 57.8 % (41.7-73.7); Platelets 251 thou/uL (152-406); RBC Red Blood Cell Count 4.71 M/uL (4.33-5.43); Red Cell Distribution Width 15.5 % (12.1-15.2)
[2024-03-26 05:44] LABS: AST/SGOT 12 U/L (15-37); Albumin 2.9 g/dL (3.4-5.0); Albumin/Globulin Ratio 0.9 (1.1-1.8); Alkaline Phosphatase 66 U/L (45-117); Anion Gap 5.8 mEq/L (5.0-15.0); BUN Blood Urea Nitrogen 9 mg/dL (7-18); Bicarbonate 31 mEq/L (21-32); Bilirubin Total 0.4 mg/dL (0.2-1.0); Globulin 3.3 g/dL (2.3-3.5); Glomerular Filtration Rate 75 ml/min (=/>90); Glucose Level 187 mg/dL (74-106); Lipase 32 U/L (13-75); Magnesium 1.5 mg/dL (1.6-2.4); Potassium 3.8 mEq/L (3.5-5.1); Protein, Total 6.2 g/dL (6.4-8.2); Sodium Level 136 mEq/L (136-145)
[2024-03-26 05:47] LABS: ALT/SGPT < 14 U/L (16-61)
[2024-03-26] MEDS ORDERED: ACETAMINOPHEN 325 MG TABLET PO PRN (06:46)
[2024-03-26] MEDS: Magnesium Sulfate 2gm IVPB 2 G/50 ML BAG IV ONE (07:16)
[2024-03-26 07:28] VITALS: BP 143/69
--- NOTE | 2024-03-26 08:06 | P.DS ---
Admission Date: 03/23/24 Discharge Date: 03/26/24 Disposition: ROUTINE DISCHARGE Discharge Condition: GOOD Reason for Admission: Intractable vomiting Consultations: GIDr. Simeon Brief History of Present Illness: 59-year-old male with history of CAD with 5 vessel CABG, renal cell carcinoma with recent partial left nephrectomy, diabetes mellitus type 2insulin- dependent, atrial fibrillation, hyperlipidemia, hypertension presented to the emergency department earlier this morning for nausea and vomiting. He reports similar symptoms to his recent admission from 02/28/24. His labs are significant for hypokalemia with a potassium of 2.7, CT chest abdomen pelvis was performed which showed improved wall thickening of the proximal stomach, some residual wall thickening along the antrum through the first part of duodenum. Persistent right hydronephrosis without evidence of obstruction. Patient was given multiple rounds of antiemetics without any improvement, his lipase was also moderately elevated but patient had no epigastric pain or tenderness. Blood pressure is also markedly elevated, patient reports he has been monitoring his blood pressure at home and has been in the 120s to 130s, seems to like this when he is unwell. Patient was admitted for further evaluation and management of intractable vomiting, gastritis. Anticipate hospitalization greater than 2 midnights Hospital Course: Assessment: Intractable vomiting EGD showing Gastric retention, gastritis, gastric deformity, pyloric stenosis (gastric outlet obstruction) Elevated lipase Hypokalemia Chronic atrial fibrillation Hypertension Hyperlipidemia CAD with previous CABG Right-sided hydronephrosis Partial left nephrectomy Patient was admitted to the hospital for intractable nausea and vomiting. He had a similar admission recently and improved with Carafate and Protonix. Given his repeat admission and persistent symptoms GI was consulted who performed an EGD on 03/23/2024. Findings of EGD as followed Small amount of retained food seen in the stomach. Moderate diffuse chronic gastritis was seen in the stomach. Multiple cold forceps biopsies were taken. A moderate deformity was noted in the antrum and the pylorus. Multiple cold forceps biopsies were taken. A moderate unspecified stenosis was noted in the pylorus. The stenosis was traversed. Patient has been improving since EGD, currently tolerating full liquid diet, symptoms much improved. Stable for discharge at this time Recommendations from GI: Follow-up in clinic in 2 weeks, continue PPI Clear liquid to full liquid diet only at this time Further management based on biopsy results. Continue your home medications as previously prescribed Liquid diet until follow-up with GI in [address] scan on admission again shows persistent/stable right sided hydronephrosis, no ureteral dilatation, no evidence of obstructing calculi, no left hydronephrosis. Renal function remained stable throughout hospitalization, recommend follow-up with urology for further evaluation. Vital Signs/Physical Exam: Temp Pulse Resp BP Pulse Ox 97.3 F 55 16 143/69 H 98 03/26/24 04:00 03/26/24 07:00 03/26/24 04:00 03/26/24 07:00 03/26/24 04:00 General: Alert, In no apparent distress, Oriented x3 HEENT: Atraumatic, PERRLA, EOMI Neck: Supple, JVD not distended Respiratory: Clear to auscultation bilaterally, Normal air movement Cardiovascular: Regular rate/rhythm, Normal S1 S2 Gastrointestinal: Normal bowel sounds, No tenderness Musculoskeletal: No tenderness Integumentary: No rashes Neurological: Normal speech, Normal tone, Normal affect Laboratory Data at Discharge: WBC 6.00 thou/uL (4.3-10.9) 03/26/24 05:08 Hgb 11.5 g/dL (13.6-17.9) L 03/26/24 05:08 Hct 36.6 % (39.6-49.0) L 03/26/24 05:08 Plt Count 251 thou/uL (152-406) 03/26/24 05:08 PT 11.7 SECONDS (9.4-12.5) 03/23/24 06:13 INR 1.05 03/23/24 06:13 Sodium 136 mEq/L (136-145) 03/26/24 05:08 Potassium 3.8 mEq/L (3.5-5.1) D 03/26/24 05:08 BUN 9 mg/dL (7-18) 03/26/24 05:08 Creatinine 1.12 mg/dL (0.70-1.30) 03/26/24 05:08 Glucose 187 mg/dL (74-106) H 03/26/24 05:08 Magnesium 1.5 mg/dL (1.6-2.4) L 03/26/24 05:08 Total Bilirubin 0.4 mg/dL (0.2-1.0) 03/26/24 05:08 AST 12 U/L (15-37) L 03/26/24 05:08 ALT < 14 U/L (16-61) L 03/26/24 05:08 Alkaline Phosphatase 66 U/L (45-117) 03/26/24 05:08 Lipase 32 U/L (13-75) 03/26/24 05:08 Home Medications: Aspirin Chewable [Aspirin Chewable*] 1 tab PO DAILY 02/27/24 Atorvastatin Calcium 1 tab PO BEDTIME 02/27/24 Clopidogrel Bisulfate [Plavix] 1 tab PO DAILY 02/27/24 Metoprolol Tartrate 0.5 tab PO Q12H 02/27/24 Dapagliflozin Propanediol [Farxiga] 1 tab PO DAILY 02/28/24 Insulin Glargine/Lixisenatide [Soliqua 100 Unit-33 Mcg/ml Pen] 60 units SQ DAILY 02/28/24 Metformin HCl 2 tab PO DAILY 02/28/24 Amlodipine [Norvasc*] 5 mg PO DAILY #30 tab 02/29/24 Sucralfate [Carafate*] 10 ml PO ACHS PRN #1200 ml 02/29/24 Pantoprazole [Protonix Tab*] 40 mg PO BID 30 Days #60 tab 03/26/24 New Medications: Pantoprazole [Protonix Tab*] 40 mg PO BID 30 Days #60 tab Physician Discharge Instructions: Patient was admitted to the hospital for intractable nausea and vomiting. He had a similar admission recently and improved with Carafate and Protonix. Given his repeat admission and persistent symptoms GI was consulted who performed an EGD on 03/23/2024. Findings of EGD as followed Small amount of retained food seen in the stomach. Moderate diffuse chronic gastritis was seen in the stomach. Multiple cold forceps biopsies were taken. A moderate deformity was noted in the antrum and the pylorus. Multiple cold forceps biopsies were taken. A moderate unspecified stenosis was noted in the pylorus. The stenosis was traversed. Patient has been improving since EGD, currently tolerating full liquid diet, symptoms much improved. Stable for discharge at this time Recommendations from GI: Follow-up in clinic in 2 weeks, continue PPI Clear liquid to full liquid diet only at this time Further management based on biopsy results. Continue your home medications as previously prescribed Liquid diet until follow-up with GI in [address] scan on admission again shows persistent/stable right sided hydronephrosis, no ureteral dilatation, no evidence of obstructing calculi, no left hydronephrosis. Renal function remained stable throughout hospitalization, recommend follow-up with urology for further evaluation. Diet: Full liqui Activity: Ad codi Followup: Eagle Zhu, [Primary Care Provider] - 1 Week Maxi Conklin MD [ACTIVE - CAN ADMIT] - 1-2 Weeks Luther Jiménez [ACTIVE - CAN ADMIT] - 1-2 Weeks Time spent managing pt's care (in minutes): 45
== END 2024-03-26 08:57 | disposition home or self-care (01) | DRG 381 ==
LOC: ER 04:24 → ERHOLD 09:49 → 2ND 14:01
PROVIDERS: ADMIT Internal Medicine; ATTEND Hospitalist
PROC: 0DB78ZX Excision of Stomach, Pylorus, Via Natural or Artificial Opening Endoscopic, Diagnostic (ICD-10-PCS; 2024-03-24)
PROC: 0DB68ZX Excision of Stomach, Via Natural or Artificial Opening Endoscopic, Diagnostic (ICD-10-PCS; principal; 2024-03-24 10:30)
DX: K31.1 Adult hypertrophic pyloric stenosis (principal); I48.20 Chronic atrial fibrillation, unspecified; N13.30 Unspecified hydronephrosis; K29.70 Gastritis, unspecified, without bleeding; K31.89 Other diseases of stomach and duodenum; Q40.3 Congenital malformation of stomach, unspecified; K62.89 Other specified diseases of anus and rectum; K20.90 Esophagitis, unspecified without bleeding; K29.80 Duodenitis without bleeding; K29.50 Unspecified chronic gastritis without bleeding; E11.40 Type 2 diabetes mellitus with diabetic neuropathy, unspecified; I10 Essential (primary) hypertension; E78.5 Hyperlipidemia, unspecified; E87.6 Hypokalemia; E03.9 Hypothyroidism, unspecified; I25.10 Atherosclerotic heart disease of native coronary artery without angina pectoris; Z90.5 Acquired absence of kidney; Z79.4 Long term (current) use of insulin; Z95.1 Presence of aortocoronary bypass graft; Z11.52 Encounter for screening for COVID-19; Z90.49 Acquired absence of other specified parts of digestive tract; Z79.82 Long term (current) use of aspirin; Z79.02 Long term (current) use of antithrombotics/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s; Z79.899 Other long term (current) drug therapy; Z79.84 Long term (current) use of oral hypoglycemic drugs; Z89.412 Acquired absence of left great toe; Z89.421 Acquired absence of other right toe(s); Z85.528 Personal history of other malignant neoplasm of kidney
CPT/HCPCS: 36415; 71045; 71260; 74177; 80048; 80053; 80076; 82947; 83690; 83735; 83880; 84132; 84439; 84443; 84484; 85025; 85610; 87804; 87811; 88305; 88312; 93005; 99285; J0360; J1650; J2003; J2405; J2470; J2550; J2704; J2765; J3475; J3480; J7030; Q9967

== ENCOUNTER 2024-03-30 12:12 | Emergency (ER) | payer OTHER ==
--- OUTSIDE RECORDS SUMMARY | 2024-03-30 12:17 | XMS REPORT | Clinical Summary ---
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 Active metFORMIN (GLUCOPHAGE) 500 mg tablet Take 2 tablets (1,000 mg) by mouth 2 (two) times a day with meals. Active insulin glargine-lixise natide (Soliqua 100/33) 100 unit-33 mcg/mL inpn Inject 60 Units/day under the skin daily. Active traMADol (ULTRAM) 50 mg tabletIndicatio ns:Renal mass Take 1 tablet (50 mg) by mouth every 4 (four) hours as needed for moderate pain or severe pain. 20 tablet 4 1:52 PM CDT 01/03/20 24 Active methocarbamol (ROBAXIN) 500 mg tabletIndicatio ns:Renal mass Take 1 tablet (500 mg) by mouth every 8 (eight) hours as needed for muscle spasms. 20 tablet 4 1:52 PM CDT 01/03/20 24 Active tadalafil (CIALIS) 5 mg tablet Take 1 tablet (5 mg) by mouth daily. 08/14/19 24 024 Discontinued dexAMETHasone (DECADRON) 2 mg tabletIndicatio ns:Adenoma, NOS of adrenal gland, NOS <Left> Take 0.5 tablets (1 mg) by mouth once for 1 dose. Take at 11pm tonight 1 tablet 09/16/19 24 024 dexAMETHasone (DECADRON) 1 mg tabletIndicatio ns:Adrenal mass Take 1 tablet (1 mg) by mouth once for 1 dose. At 11pm the night before serum cortisol will be drawn; must complete lab close to 8am the following day. 1 tablet 09/20/19 24 024 polyethylene glycol (GLYCOLAX) 17 gram/dose powderIndicatio ns:Renal mass Fill powder to justice inside cap (17 g). Stir and Dissolve in any 4 to 8 ounces of beverage then drink solution daily for 30 days as directed. 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 09/16/2023 Paroxysmal atrial fibrillation Diabetic ketoacidosis Overview (01/01/2024): Hospitalized locally 12/03/2023-12/06/2023 Gastro-esophageal reflux disease without esophag itis Hyperlipidemia Hypertension Neuropathy Renal cell carcinoma <Left side> Encounters Date Type Department Care Team Description 02/11/2024 Travel 02/10/2024 3:30 PM CDT Telemedicine [facility] [address] [facility], 7th [place] [address] Margoth Souza MD Renal mass (Primary Dx) 01/02/2024 7:15 AM CDT Ancillary Procedure MAIN OR [address] [place] [address] Margoth Souza MD 01/02/2024 7:00 AM CDT - 01/02/2024 11:40 AM CDT Surgery MAIN OR [address] [place] [address] Margoth Souza MD ROBOTIC ASSISTED PARTIAL NEPHRECTOMY 01/02/2024 6:58 AM CDT Anesthesia Event MAIN OR [address] [place] [address] Alonzo Liu MD Majekodumi, Jessy, CRNA 01/02/2024 5:04 AM CDT - 01/03/2024 5:05 PM CDT Hospital Encounter MAIN P09B [address] [place] [address] Margoth Souza MD Renal mass (Primary Dx) Discharge Disposition: Home 01/02/2024 Travel 12/31/2023 1:04 PM CDT - 12/31/2023 11:59 PM CDT Hospital Encounter Main CT IMAGING [address] [place] [address], 3rd [place] [address] Margoth Souza MD Renal mass Discharge Disposition: Home 12/31/2023 8:00 AM CDT Consult Endocrine Center [address] [place] [address], [facility] [place] [address] Nakia Kirby APRN Khan, Sonya, MD Type 2 diabetes mellitus with hyperglycemia [E11.65] (Primary Dx); Pre-surgery evaluation 12/30/2023 9:30 AM CDT Office Visit [facility] [address] [place] [address], 7th Floor Elevator [place] [phone] Margoth Souza MD Renal mass 12/30/2023 Travel 12/30/2023 Telephone Endocrine Center [address] [place] [address], [facility] [place] [address] Winnie Archibald, RN Appointment (Cannot get internet-phone broke) 12/30/2023 Orders Only [facility] [address] [place] [address], 7th [place] [address] Roberto Poole PA Renal mass (Primary Dx) 12/29/2023 Orders Only Endocrine Center [address] [place] [address], [address] [place], [place] [address]ator [place] [phone] Veronica Del Castillo APRN 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); Endocrine/metabolic screening; Renal cell carcinoma <Left side> 12/25/2023 8:36 AM CDT Anesthesia Event [facility] [address] [place] [phone] Lien Antonio RN 12/23/2023 10:30 AM CDT Consult Perioperative Evaluation and Management [address] [place] [address] Margoth Souza MD Oh, Jeong, MD Encounter for other preprocedural examination (Primary Dx); Renal mass; Hyperlipidemia, not otherwise specified 12/23/2023 9:00 AM CDT POEM Appointments [facility] [address] [place] [phone] Margoth Souza MD Pre-surgery evaluation (Primary Dx) 12/23/2023 8:45 AM CDT - 12/23/2023 11:59 PM CDT Hospital Encounter [facility] [address] [place] [phone] Margoth Souza MD Renal mass Discharge Disposition: Home 12/23/2023 Travel 12/09/2023 9:33 AM CDT - 12/09/2023 11:59 PM CDT Hospital Encounter [facility] [address] [place] [address] Veronica Del Castillo APRN 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; Endocrine/metabolic screening Discharge Disposition: Home 12/09/2023 8:30 AM CDT Consult Endocrine Center [address] [place] [phone] Mary Jane Cassidy MD 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); Endocrine/metabolic screening; Renal cell carcinoma <Left side> 12/09/2023 Travel 10/23/2023 Orders Only [facility] [address] [place] [address], 7th [place] [address] Roberto Poole PA Renal mass (Primary Dx); Adrenal mass 10/03/2023 9:30 AM CDT - 10/03/2023 11:59 PM CDT Hospital Encounter Interventional Radiology [address] [place] [address], 4th [place] [address] Shazia Arriaza MD McRae, Stephen, MD Renal mass Discharge Disposition: Home 10/03/2023 8:30 AM CDT - 10/03/2023 9:29 AM CDT Hospital Encounter [facility] [address] [place] [phone] Margoth Souza MD Renal mass Discharge Disposition: Home 10/03/2023 Travel 10/02/2023 8:24 AM CDT - 10/02/2023 11:59 PM CDT Hospital Encounter Interventional Radiology [address] [place] [address], 4th [place] [address] Margoth Souza MD Ho, ThanhRenata Horn PA-C Encounter for other preprocedural examination (Primary Dx); Renal mass; 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 Discharge Disposition: Home 10/02/2023 Travel 09/24/2023 7:46 AM CDT - 09/24/2023 11:59 PM CDT Hospital Encounter [facility] [address] [place] [phone] Roberto Poole PA Adrenal mass Discharge Disposition: Home 09/20/2023 Orders Only [facility] [address] [place] [address], 7th [place] [address] Roberto Poole PA Adrenal mass (Primary Dx) 09/19/2023 11:45 AM CDT Ancillary Procedure [facility]-Ray Outpatient Center [address] [place] [address], 7th [place] [address] Shazia Arriaza MD Renal mass 09/19/2023 9:20 AM CDT - 09/19/2023 11:59 PM CDT Hospital Encounter [facility] [address] [place] [address] Shazia Arriaza MD Adenoma, NOS of adrenal gland, NOS <Left> Discharge Disposition: Home 09/19/2023 Orders Only Interventional Radiology [address] [place] [address], 4th [place] [address] Abilio Ng PA-C Renal mass (Primary Dx) 09/19/2023 Travel 09/19/2023 Telephone MD [facility] [address] [place] [address] Barbara Rees MA 09/16/2023 4:00 PM CDT - 09/16/2023 11:59 PM CDT Hospital Encounter [facility] [address] [place] [phone] Shazia Arriaza MD Renal mass; Adrenal mass Discharge Disposition: Home 09/16/2023 2:00 PM CDT Office Visit [facility] [address] [place] [address], 7th [place] [address] Margoth Souza MD Renal mass (Primary Dx); Adrenal mass; Adenoma, NOS of adrenal gland, NOS <Left>; 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 09/16/2023 12:30 PM CDT NPR MDA PATIENT ACCESS 09/16/2023 Travel 08/08/2023 8:00 PM CDT Ancillary Procedure [facility] [address] [place] [phone] Margoth Souza MD Cancer 08/08/2023 6:40 AM CDT Ancillary Procedure [facility] [address] [place] [address] Margoth Souza MD Cancer after 03/31/2023 Surgical History Surgery Date Site/Laterality Comments TOE AMPUTATION x2, 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, 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 APPENDECTOMY 05/20/1973 - 05/19/1974 Open WRIST SURGERY Left HAND SURGERY Right HIP ARTHRODESIS W/ ILIAC CREST BONE GRAFT Bilateral For hand surgeries CERVICAL SPINE SURGERY C3-6 fusion, x2 IL LAPAROSCOPY SURG PARTIAL NEPHRECTOMY 01/02/2024 Abdomen/Left Procedure: ROBOTIC ASSISTED PARTIAL NEPHRECTOMY; Surgeon: Margoth Souza MD; Location: MAIN OR; Service: UROLOGY IL ULTRASONIC GUIDANCE INTRAOPERATIVE 01/02/2024 Left Procedure: INTROPERATIVE [...] Recorded Sex Assigned at Not on file 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 Gender Identity Not on file Sexual Orientation Not on file Occupation Industry Job Start Date Job End Date retired from [email or web address] Not on file N ot on file Not on file Obstetrics History [...] AM CDT Lab [facility] [address] [facility], [address] [place] [address] Margoth Souza MD [address] [place] [phone] [email or web address] 02/05/2025 11:15 AM CDT Ancillary Procedure [facility] Outpatient Center [address] [place] [address] Margoth Souza MD [address] [place] [address] [email or web address] 02/05/2025 12:20 PM CDT Ancillary Procedure CT Imaging [address] [place] [address] Margoth Souza MD [address] [place] [phone] [email or web address] 02/08/2025 2:30 PM CDT Telemedicine [facility] [address] [place] [address] Margoth Souza MD [address] [place] [phone] [email or web address] Health Maintenance Due Date Last Done Comments Pneumococcal Vaccine: Pediat rics (0 to 5 Years) and At-Risk Patients (6 to 64 Years) (1 of 2 - PCV) 01/09/1970 01/09/1975 COVID-19 Vaccine (1 - 2023- season) 2024 Influenza Vaccine (#1) 2024 08/04/2018 [...] INTRAOPERATIVE US STAT 01/02/2024 7:13 AM CDT [place] ULTRASONIC GUIDANCE INTRAOPERATIVE 01/02/2024 6:08 AM CDT Renal mass Special Needs [email or web address]:Please collect and send tissue to pathology window with appropriate label. 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 eGFR 71 >=60 mL/min/1. 73 sq. m 01/03/2024 3:44 PM CDT [facility] Comment: The eGFRcr is [...] - 10.2 mg/dL 01/03/2024 3:44 PM CDT [facility] Sodium Level 139 136 - 145 mmol/L 01/03/2024 3:44 PM CDT [facility] Potassium Level 3.9 3.4 - 4.5 mmol/L 01/03/2024 3:44 PM CDT [facility] Chloride 103 98 - 107 mmol/L 01/03/2024 3:44 PM CDT [facility] CO2 28 22 - 29 mmol/L 01/03/2024 3:44 PM CDT [facility] Anion Gap 8 4 - 14 mmol/L 01/03/2024 3:44 PM CDT [facility] Creatinine 1.18(H) 0.67 - 1.17 mg/dL 01/03/2024 3:44 PM CDT [facility] BUN 15 6 - 23 mg/dL 01/03/2024 3:44 PM CDT [facility] Glucose Level 137(H) 70 - 99 mg/dL 01/03/2024 3:44 PM CDT [facility] Comment: Effective 12/14/15, the glucose reference intervals have been updated based on [place] Diabetes [employer] guidelines (Standards of Medical Care [...] PM CDT Alicia Mcmanus APRN LAB BLOOD ORDERABLES Final Result [facility] Unless otherwise noted, all lab tests performed by: Division of Pathology and Laboratory Medicine [address] [place] [address] * POC Glucose Screen - Fingerstick (01/03/2024 11:19 AM CDT) Only the most recent of15 resultswithin the time period is included. Glucose Screen 70 70 - 99 mg/dL 01/03/2024 11:20 AM CDT [facility] POC Sample Type Capillary 01/03/2024 11:20 AM CDT [facility] Blood 01/03/2024 11:1 9 AM CDT 01/03/2024 11:20 AM CDT Narrative [facility] - 01/03/2024 11:20 AM CDT [...] methodology. Margoth Souza MD POCT ORDERABLES - DEVICE Final R esult Performing Organization Address City/[facility] Co de Phone Number [facility] Unless otherwise noted, all lab tests performed by: Division of Pathology and Laboratory Medicine [address] [place] [phone] * Zinc Transporter 8 Ab (01/03/2024 4:22 AM CDT) [facility] Zinc T8 AB <15.0 <15.0 U/mL 01/15/2024 11:18 AM CDT [facility] TIFF Comment: ADDITIONAL INFORMATION This test has been modified from the animal warden's instructions. Its performance characteristics were determined by [facility] in a manner consistent with CLIA requirements. This test has not been cleared or approved by the U.S. Food and Drug Administration. Test Performed by: [place] [address] Application Designer: Mary Jane Topete Ph.D.; CLIA# [id number] Blood Peripheral blood specimen / Unknown Venipuncture / Unknown 01/03/2024 4:22 AM CDT 01/03/2024 4:55 AM CDT us Alicia Mcmanus APRN LAB BLOOD ORDERABLES Final Result Performing Organization Address City/[facility] Co de Phone Number [facility] TIFF * Islet Antigen 2 (IA-2) Antibody (01/03/2024 4:22 AM CDT) Pathologist [facility] IA-2 Antibody 0.00 <=0.02 nmol/L 01/07/2024 12:20 AM CDT [facility] TIFF Comment: ADDITIONAL INFORMATION This test was developed and its performance characteristics determined by [facility] in a manner consistent with CLIA requirements. This test has not been cleared or approved by the U.S. Food and Drug Administration. Test Performed by: [address] [address] Application Designer: Mary Jane Topete Ph.D.; CLIA# [id number] Blood Peripheral blood specimen / Unknown Venipuncture / Unknown 01/03/2024 4:22 AM CDT 01/03/2024 4:55 AM CDT Alicia Mcmanus APRN LAB BLOOD ORDERABLES Final Result Performing Organization Address [facility] Co de Phone Number [facility] TIFF * GREG Ab Assay (01/03/2024 4:22 AM CDT) Pathologist [facility] [id number] Ab-Merigold 0.00 <=0.02 nmol/L 01/07/2024 12:01 AM CDT [facility] TIFF Comment: ADDITIONAL INFORMATION This test was developed and its performance characteristics determined by [facility] in a manner consistent with CLIA requirements. This test has not been cleared or approved by the U.S. Food and Drug Administration. Test Performed by: [address] [address] Application Designer: Mary Jane Topete Ph.D.; CLIA# [id number] Blood Peripheral blood specimen / Unknown Venipuncture / Unknown 01/03/2024 4:22 AM CDT 01/03/2024 4:55 AM CDT us Alicia Mcmanus APRN LAB BLOOD ORDERABLES Final Result Performing Organization Address [facility]/ZIP Co de Phone Number [facility] TIFF * Insulin Ab (01/03/2024 4:22 AM CDT) Pathologist [facility] Insulin Ab-Maxwell 0.00 0.00 - 0.02 nmol/L 01/06/2024 5:14 PM CDT [facility] Comment: ADDITIONAL INFORMATION This test was developed and its performance characteristics determined by [facility] in a manner consistent with CLIA requirements. This test has not been cleared or approved by the U.S. Food and Drug Administration. Test Performed by: [facility] [place] [address] Application Designer: Mary Jane Topete Ph.D.; CLIA# [id number] Blood Peripheral blood specimen / Unknown Venipuncture / Unknown 01/03/2024 4:22 AM CDT 01/03/2024 4:55 AM CDT Alicia Mcmanus APRN LAB BLOOD ORDERABLES Final Result [facility] TIFF * C Peptide (01/03/2024 4:22 AM CDT) Pathologist [facility] C-Peptide 2.12 1.10 - 4.40 ng/mL 01/03/2024 5:48 AM CDT [facility] Blood Peripheral blood specimen / Unknown Venipuncture / Unknown 01/03/2024 4:22 AM CDT 01/03/2024 4:55 AM CDT Alicia Mcmanus APRN LAB BLOOD ORDERABLES Final Result [facility] Unless otherwise noted, all lab tests performed by: Division of Pathology and Laboratory Medicine [address] [place] [phone] * (ABNORMAL) Hemogram (01/02/2024 7:20 PM CDT) [facility] White Blood Cell 13.8(H) 4.1 - 10.5 K/uL 01/02/2024 7:33 PM CDT [facility] Red Blood Cell 4.74 4.30 - 6.04 M/uL 01/02/2024 7:33 PM CDT [facility] Hemoglobin 12.2(L) 13.3 - 17.4 g/dL 01/02/2024 7:33 PM CDT [facility] Hematocrit 38.6(L) 39.5 - 51.8 % 01/02/2024 7:33 PM CDT [facility] Mean Cell Volume 81(L) 82 - 99 fL 01/02/2024 7:33 PM CDT [facility] Mean Cell Hemoglobin 25.7(L) 26.6 - 33.2 pg 01/02/2024 7:33 PM CDT [facility] Mean Cell Hemoglobin Concentration 31.6 31.1 - 35.2 g/dL 01/02/2024 7:33 PM CDT [facility] RDW-SD 39.1 37.5 - 49.7 fL 01/02/2024 7:33 PM CDT [facility] Red Cell Diameter Width 13.1 11.6 - 15.5 % 01/02/2024 7:33 PM CDT [facility] Platelet 291 160 - 397 K/uL 01/02/2024 7:33 PM CDT [facility] Mean Platelet Volume 9.7 9.1 - 12.6 fL 01/02/2024 7:33 PM CDT [facility] INRBC 0.0 0.0 - 0.1 /100 WBC 01/02/2024 7:33 PM CDT [facility] Comment: The INRBC (instrument NRBC) [...] 7:20 PM CDT 01/02/2024 7:24 PM CDT us Innocent Linda PRICE LAB BLOOD ORDERABLES Final R esult [facility] Unless otherwise noted, all lab tests performed by: Division of Pathology and Laboratory Medicine [address] [place] [phone] * (ABNORMAL) Beta Hydroxy Quant (01/02/2024 7:20 PM CDT) Only the most recent of2 resultswithin the time period is included. [facility] Beta-Hydroxybuty rate 0.85(H) 0.02 - 0.27 mmol/L 01/02/2024 8:01 PM CDT [facility] Is patient fasting? No 01/02/2024 8:01 PM CDT [facility] Comment:A fasting specimen i s recommended and results obtained from non-fasting specimens should be interpreted with caution using reference ranges based on fasting status and in conjunction with clinical context. Blood Peripheral blood specimen / Unknown Venipuncture / Unknown 01/02/2024 7:20 PM CDT 01/02/2024 7:24 PM CDT Narrative [facility] - 01/02/2024 8:01 PM CDT Reference range based on fasting. us Alicia Mcmanus APRN LAB BLOOD ORDERABLES Final Result Performing Organization Address [facility] de Phone Number [facility] Unless otherwise noted, all lab tests performed by: Division of Pathology and Laboratory Medicine [address] [place] [id number] * (ABNORMAL) .CBC (01/02/2024 12:19 PM CDT) Only the most recent of3 resultswithin the time period is included. [facility] White Blood Cell 11.6(H) 4.1 - 10.5 K/uL 01/02/2024 12:39 PM CDT [facility] Red Blood Cell 4.71 4.30 - 6.04 M/uL 01/02/2024 12:39 PM CDT [facility] Hemoglobin 12.4(L) 13.3 - 17.4 g/dL 01/02/2024 12:39 PM CDT [facility] Hematocrit 38.1(L) 39.5 - 51.8 % 01/02/2024 12:39 PM CDT [facility] Mean Cell Volume 81(L) 82 - 99 fL 01/02/2024 12:39 PM CDT [facility] Mean Cell Hemoglobin 26.3(L) 26.6 - 33.2 pg 01/02/2024 12:39 PM CDT [facility] Mean Cell Hemoglobin Concentration 32.5 31.1 - 35.2 g/dL 01/02/2024 12:39 PM CDT [facility] RDW-SD 39.0 37.5 - 49.7 fL 01/02/2024 12:39 PM CDT [facility] Red Cell Diameter Width 13.3 11.6 - 15.5 % 01/02/2024 12:39 PM CDT [facility] Platelet 305 160 - 397 K/uL 01/02/2024 12:39 PM CDT [facility] Mean Platelet Volume 9.7 9.1 - 12.6 fL 01/02/2024 12:39 PM CDT [facility] INRBC 0.0 0.0 - 0.1 /100 WBC 01/02/2024 12:39 PM CDT [facility] Comment: The INRBC (instrument NRBC) value reflects the enumeration of nucleated red blood cells contained in a 200uL sample of whole blood analyzed by the instrument. This value may differ from the NRBC value reported in a manual differential, which is based on a 100 cell differential. Neutrophil % 90.6(H) 43.2 - 72.7 % 01/02/2024 12:39 PM CDT [facility] Lymphocyte % 6.8(L) 16.8 - 46.2 % 01/02/2024 12:39 PM CDT [facility] Monocyte % 1.9(L) 5.1 - 12.5 % 01/02/2024 12:39 PM CDT [facility] Eosinophil % 0.1(L) 0.4 - 6.3 % 01/02/2024 12:39 PM CDT [facility] Basophil % 0.3 0.2 - 1.4 % 01/02/2024 12:39 PM CDT [facility] IGRE % 0.3 0.1 - 1.5 % 01/02/2024 12:39 PM CDT [facility] Comment:The IGRE% includes M etamyelocytes, Myelocytes and Promyelocytes. Neutrophil Abs 10.48(H) 1.95 - 7.25 K/uL 01/02/2024 12:39 PM CDT [facility] Lymphocyte Abs 0.79(L) 1.01 - 3.24 K/uL 01/02/2024 12:39 PM CDT [facility] Monocyte Abs 0.22(L) 0.24 - 0.85 K/uL 01/02/2024 12:39 PM CDT [facility] Eosinophil Abs 0.01(L) 0.02 - 0.50 K/uL 01/02/2024 12:39 PM CDT [facility] Basophil Abs 0.03 0.02 - 0.09 K/uL 01/02/2024 12:39 PM CDT [facility] IG Abs 0.03 0.01 - 0.12 K/uL 01/02/2024 12:39 PM CDT [facility] Blood Peripheral blood specimen / Unknown Venipuncture / Unknown 01/02/2024 12:19 PM CDT 01/02/2024 12:33 PM CDT us Hakan Nagy MD LAB BLOOD ORDERABLES Final R esult [facility] Unless otherwise noted, all lab tests performed by: Division of Pathology and Laboratory Medicine [address] [place] [id number] * Pathology Surgical Interpretation (01/02/2024 10:42 AM CDT) Submitted Clinical History Renal mass [N28.89] 01/22/2024 10:13 PM CDT [facility] Diagnosis A: Perinephric fat, resection: Fibroadipose tissue, negative for tumor. B: Kidney, left, hilar mass, partial nephrectomy: RENAL CELL CARCINOMA, CLEAR CELL TYPE. 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 (See comment) PXT/FHH 01/22/2024 10:13 PM CDT [facility] Comment The thrombus in the branch of the renal vein does not have any epithelial cells, which is confirmed by Cytokeratin cocktail and PAX8 immunohistochemical stains (on blocks B2 and B9). 01/22/2024 10:13 PM T [facility] Synoptic Checklist KIDNEY: Nephrectomy KIDNEY: [...] Nonneoplastic Kidney: Insufficient tissue 01/22/2024 10:13 PM T [facility] Gross Description A: Perinephric fat, or 33: Received fresh is a single irregular unoriented portion of yellow-red lobulated fibrofatty tissue with focal brown-black cautery (4.8 x 3.4 x 1.8 cm) sectioned to reveal grossly unremarkable yellow-red lobulated fibrofatty tissue without apparent mass lesional lymph node grossly identified. Commercial Correspondent section in A1. PB B: Kidney, left, [...] in B8-B9 PB 01/22/2024 10:13 PM CDT [email or web address] Biomarker Block(s) Tumor: B8 Normal: A1 01/22/2024 10:13 PM CDT [email or web address] Disclaimer "Some tests reported here may have been developed and performance characteristics determined by [facility]. These tests have not been specifically cleared or approved by the U.S. Food and Drug Administration. If applicable, controls were reviewed and showed appropriate reactivity." 01/22/2024 10:13 PM CDT [email or web address] Tissue (Perinephric Fat) 01/02/2024 10:42 AM CDT 01/02/2024 11:03 AM CDT Tissue specimen (specimen) (Kidney, Left) 01/02/2024 10:43 AM CDT 01/02/2024 11:03 AM CDT us Margoth Souza MD LAB PATHOLOGY ORDERABLES Final R esult [facility] [address] [place] [address], [place] * (ABNORMAL) ABG+ (ABG, Na, K, Cl, Glu, Hgb, Hct, Lactate, Ion Ca) (01/02/2024 10:38 AM CDT) Only the most recent of2 resultswithin the time period is included. Sodium Arterial 140 136 - 146 mmol/L 01/02/2024 10:44 AM CDT [facility] Potassium Arterial 3.7 3.4 - 4.5 mmol/L 01/02/2024 10:44 AM CDT [facility] Chloride Arterial 103 98 - 106 mmol/L 01/02/2024 10:44 AM CDT [facility] Glucose Arterial 270(H) 70 - 105 mg/dL 01/02/2024 10:44 AM CDT [facility] Hgb Art 12.9(L) 13.5 - 17.5 g/dL 01/02/2024 10:44 AM CDT [facility] Hematocrit Arterial 40(L) 42 - 52 % 01/02/2024 10:44 AM CDT [facility] Lactate Arterial 1.0(H) 0.4 - 0.8 mmol/L 01/02/2024 10:44 AM CDT [facility] Calcium Ionized Arterial 1.14(L) 1.15 - 1.29 mmol/L 01/02/2024 10:44 AM CDT [facility] pH Arterial 7.35 7.35 - 7.45 01/02/2024 10:44 AM CDT [facility] P CO2 Arterial 42.9 35.0 - 48.0 mmHg 01/02/2024 10:44 AM CDT [facility] P O2 Arterial 164(H) 83 - 108 mmHg 01/02/2024 10:44 AM CDT [facility] Bicarbonate Arterial 24 21 - 28 mmol/L 01/02/2024 10:44 AM CDT [facility] WB Anion Gap 13 7 - 16 mmol/L 01/02/2024 10:44 AM CDT [facility] Base Excess Arterial -2 -2 - 3 mmol/L 01/02/2024 10:44 AM T [facility] Oxygen Saturation Arterial 99 95 - 99 % 01/02/2024 10:44 AM CDT [facility] Oxygen FLOW Rate/ FiO2 01/02/2024 10:44 AM T [facility] O2 Therapy 01/02/2024 10:44 AM T [facility] Art Kirill Test Not Applicable (Arterial Line Draw) 01/02/2024 10:44 AM T [facility] Blood Arterial blood specimen / Unknown Arterial Line / Unknown 01/02/2024 10:38 AM CDT 01/02/2024 10:41 AM CDT Narrative [facility] - 01/02/2024 10:44 AM CDT [...] hemoglobin multiplied by the standard value 0.0301. us Alonzo Liu MD LAB BLOOD ORDERABLES Final Re sult [facility] [place] Unless otherwise noted, all lab tests performed by: Division of Pathology and Laboratory Medicine [address] [place] [address] * Intraoperative Ultrasound - For Image Storage (without Report) (01/02/2024 7:13 AM CDT) Narrative Systemgenerated, Documentation - 01/02/2024 7:13 AM CDT This procedure requires no interpretation from the radiologist. Margoth Souza MD IMG NON DI ORDERABLES Final Resu lt * CT Abdomen with and without Contrast [...] actionable. Margoth Souza MD IMG CT ORDERABLES Final Result * BB Preop Exp Date (12/23/2023 8:51 AM CDT) Pathologist [facility] PREOP EXP DATE 01/22/2024 12/23/2023 2:19 PM CDT [facility] Blood Peripheral blood specimen / Unknown Venipuncture / Unknown 12/23/2023 8:51 AM CDT 12/23/2023 9:00 AM CDT Margoth Souza MD BLOOD BANK TEST ORDERABLES Final Result [facility] [address] [facility] [address] [place] [address] * Preop Updated Expiration (12/23/2023 8:51 AM CDT) PREOP STATUS 01/02/2024 11:33 PM CDT [facility] PREOP EXP DATE 01/02/2024 01/02/2024 11:33 PM CDT [facility] Blood Peripheral blood specimen / Unknown Venipuncture / Unknown 12/23/2023 8:51 AM CDT 12/23/2023 9:00 AM CDT us Margoth Souza MD BLOOD BANK TEST ORDERABLES Final Result [facility] [address] [place] [address] * (ABNORMAL) Urinalysis with Reflex Culture (12/23/2023 8:51 AM CDT) Only the most recent of2 resultswithin the time period is included. Urine Appearance Clear Clear 12/23/19 9:33 AM CDT [facility] Urine Color Straw Colorless, Straw, Yellow, Dark Yellow, Straw-Yellow 12/23/2023 9:33 AM CDT [facility] Urine Specific [place] 1.032 1.003 - 1.035 12/23/2023 9:33 AM CDT [facility] Urine pH 6.0 5.0 - 8.0 12/23/2023 9:33 AM CDT [facility] Urine Glucose >=1000(A) Negative mg/dL 12/23/2023 9:33 AM CDT [facility] Urine Ketones Negative Negative mg/dL 12/23/2023 9:33 AM CDT [facility] Urine Blood Negative Negative 12/23/2023 9:33 AM CDT [facility] Urine Protein 30(A) Negative mg/dL 12/23/2023 9:33 AM CDT [facility] Urine Bilirubin Negative Negative 9:33 AM CDT [facility] Urine Urobilinogen Negative Negative 12/23/2023 9:33 AM CDT [facility] Urine Nitrite Negative Negative 12/23/2023 9:33 AM CDT [facility] Urine Leukocyte Esterase Negative Negative 12/23/2023 9:33 AM CDT [facility] Urine Mucous Not Seen Not Seen, Trace /HPF 12/23/2023 9:33 AM CDT [facility] Urine Bacteria Not Seen Not Seen /HPF 12/23/2023 9:33 AM CDT [facility] Urine Squamous Epithelial Cells OCC Not Seen, OCC, Rare /HPF 12/23/2023 9:33 AM CDT [facility] Urine WBC <1 <=2 /HPF 12/23/2023 9:33 AM CDT [facility] Urine RBC 1 <=2 /HPF 12/23/2023 9:33 AM CDT [facility] Urine Voided urine specimen / Unknown Non-blood Collection / Unknown 12/23/2023 8:51 AM CDT 12/23/2023 9:10 AM CDT [facility] - 12/23/2023 9:33 AM CDT Some reporting parameters within the Urinalysis test have changed due to the implementation of new instrumentation in the Main [place], allowing greater sensitivity of measurement. Urinalysis results reported by the [facility] using existing instrumentation, as well as Urinalysis testing performed manually or by back-up methodology at the main [place], will remain relatively unchanged. New reporting parameters and units will now be reported for all campuses. us Margoth Souza MD URINE ORDERABLES Final Result [facility] Unless otherwise noted, all lab tests performed by: Division of Pathology and Laboratory Medicine [address] [place] [address] * 30-Day Pre-Op Type and Screen (12/23/2023 8:51 AM CDT) Only the most recent of2 resultswithin the time period is included. ABORh O POS 12/23/2023 8:45 AM CDT [facility] ABSC Negative 12/23/2023 8:45 AM CDT [facility] BB Criteria Met Criteria met 12/23/2023 8:45 AM CDT [facility] Historical Record Check Complete 12/23/2023 8:45 AM CDT [facility] Blood Peripheral blood specimen / Unknown Venipuncture / Unknown 12/23/2023 8:51 AM CDT 12/23/2023 9:00 AM CDT Margoth Souza MD BLOOD BANK TEST ORDERABLES Final Result Performing Organization Address [facility] Co de Phone Number [facility] [address] [place] [address].[address] [place] [phone] * TMP Interpretation Exception PreOp Expiration (12/23/2023 8:51 AM CDT) Only the most recent of2 resultswithin the time period is included. TMP Exception 12/24/2023 10:47 AM CDT [facility] TMP Signature . 12/24/2023 10:47 AM CDT [facility] Blood Peripheral blood specimen / Unknown Venipuncture / Unknown 12/23/2023 8:51 AM CDT 12/23/2023 9:00 AM CDT Margoth Souza MD BLOOD BANK TEST ORDERABLES Final Result Performing Organization Address [facility] Co de Phone Number [facility] [address] [place] [address].[address] [place] [address] * (ABNORMAL) Comprehensive Metabolic Panel (12/23/2023 8:51 AM CDT) Only the most recent of2 resultswithin the time period is included. Bilirubin Total 0.3 0.0 - 1.2 mg/dL 12/23/2023 9:41 AM CDT [facility] Comment:Indocyanine Green (I CG) may cause falsely elevated bilirubin results. Total and direct bilirubin must not be measured from samples containing indocyanine green. False elevation of total bilirubin can be seen in patients with IgG concentrations above 28 g/L. eGFR 75 >=60 mL/min/1. 73 sq. m 12/23/2023 9:41 AM CDT [facility] Comment: The eGFRcr is calculated [...] - 8.3 gm/dL 12/23/2023 9:41 AM CDT [facility] Calcium Level Total 9.9 8.2 - 10.2 mg/dL 12/23/2023 9:41 AM CDT [facility] Alkaline Phosphatase 80 40 - 129 U/L 12/23/2023 9:41 AM CDT [facility] Albumin Level 4.2 3.5 - 5.2 gm/dL 12/23/2023 9:41 AM CDT [facility] AST 15 <=40 U/L 12/23/2023 9:41 AM CDT [facility] ALT 14 <=41 U/L 12/23/2023 9:41 AM CDT [facility] Sodium Level 138 136 - 145 mmol/L 12/23/2023 9:41 AM CDT [facility] Potassium Level 4.2 3.4 - 4.5 mmol/L 12/23/2023 9:41 AM CDT [facility] Chloride 101 98 - 107 mmol/L 12/23/2023 9:41 AM CDT [facility] CO2 29 22 - 29 mmol/L 12/23/2023 9:41 AM CDT [facility] Anion Gap 8 4 - 14 mmol/L 12/23/2023 9:41 AM CDT [facility] Creatinine 1.13 0.67 - 1.17 mg/dL 12/23/2023 9:41 AM CDT [facility] BUN 14 6 - 23 mg/dL 12/23/2023 9:41 AM CDT [facility] Glucose Level 294(H) 70 - 99 mg/dL 12/23/2023 9:41 AM CDT [facility] Comment: Effective 12/14/15, the glucose reference intervals have been updated based on [place] [employer] guidelines (Standards of Medical Care [...] 8:51 AM CDT 12/23/2023 9:00 AM CDT us Margoth Souza MD LAB BLOOD ORDERABLES Final Resul t [facility] Unless otherwise noted, all lab tests performed by: Division of Pathology and Laboratory Medicine [address] [place] [phone] * (ABNORMAL) Hemoglobin A1c (12/23/2023 8:51 AM CDT) Only the most recent of2 resultswithin the time period is included. Hemoglobin A1c 9.7(H) 4.3 - 5.6 % 12/23/2023 9:34 AM CDT [facility] Blood Peripheral blood specimen / Unknown Venipuncture / Unknown 12/23/2023 8:51 AM CDT 12/23/2023 9:00 AM CDT Narrative [facility] - 12/23/2023 9:34 AM CDT HbA1c values >=6.5% are diagnostic of diabetes mellitus. Diagnosis should be confirmed by repeat testing. Therapeutic Action suggested: >8.0% HbA1c; Goal of therapy: <7.0% HbA1c Margoth Souza MD LAB BLOOD ORDERABLES Final Resul t Performing Organization Address City/[facility] Co de Phone Number [facility] Unless otherwise noted, all lab tests performed by: Division of Pathology and Laboratory Medicine [address] [place] [address] * ACTH (12/09/2023 9:45 AM CDT) Only the most recent of2 resultswithin the time period is included. [facility] ACTH 22 7 - 63 pg/mL 12/09/2023 12:19 PM CDT [facility] Blood Peripheral blood specimen / Unknown Venipuncture / Unknown 12/09/2023 9:45 AM CDT 12/09/2023 9:52 AM CDT Narrative [facility] - 12/09/2023 12:19 PM CDT Reference range established based on adult population (7 - 10am draws). No established reference values for p.m. draws. Results greater than 1826 pg/mL may not be reliable due to matrix effect with extended dilution as it exceeds the animal warden's recommended limit. ACTH reference intervals are established for the morning hours from 7-10 am. Due to the circadian rhythm of ACTH levels in plasma, the sample collection time must be noted. Caution should be exercised when interpreting such values and done in conjunction with clinical context. Veronica Del Castillo APRN LAB BLOOD ORDERABLES Final Result Performing Organization Address City/[facility] Co de Phone Number [facility] Unless otherwise noted, all lab tests performed by: Division of Pathology and Laboratory Medicine [address] [place] [address] * DHEA Sulfate (12/09/2023 9:45 AM CDT) [facility] [place] [address] 20 - 299 mcg/dL 12/10/2023 12:10 PM CDT [facility] Comment: Test Performed by: [facility] [address] [place] [address] Application Designer: Mary Jane Topete Ph.D.; CLIA# [id number] Blood Peripheral blood specimen / Unknown Venipuncture / Unknown 12/09/2023 9:45 AM CDT 12/09/2023 9:56 AM CDT Veronica Del Castillo JACKSCREW WORKER LAB BLOOD ORDERABLES Final Result [facility] * Cortisol, Total (12/09/2023 9:45 AM CDT) Only the most recent of4 resultswithin the time period is included. Cortisol 11.39 4.82 - 19.50 mcg/dL 12/09/2023 11:00 AM CDT [facility] Blood Peripheral blood specimen / Unknown Venipuncture / Unknown 12/09/2023 9:45 AM CDT 12/09/2023 9:55 AM CDT Narrative [facility] - 12/09/2023 11:00 AM CDT Cortisol [...] Afternoon (4-8 pm): 2.47 - 11.9 mcg/dL LeahClint Abundio MARIE LAB BLOOD ORDERABLES Final Result [facility] Unless otherwise noted, all lab tests performed by: Division of Pathology and Laboratory Medicine [address] [place] [id number] * IR CT GUIDED BIOPSY RENAL (10/03/2023 10:27 AM CDT) Anatomical Region Laterality Modality Abdomen/Pelvis, Organ (liver/spleen/kidney) Computed Tomography Narrative 10/04/2023 9:03 AM CDT Table formatting from the original result was not included. Date of Procedure: 10/03/23 Attending Physician: Kumar Comer MD Department Sales Manager: None Pre Procedure Diagnosis: Renal mass Post [...] Plan: No follow-up with Interventional Radiology required. us Shazia Arriaza MD IMG IR ORDERABLES Final Re sult * Pathology Biopsy Interpretation (10/03/2023 10:19 AM CDT) Submitted Clinical History Renal mass [N28.89] 10/04/2023 9:52 AM CDT [facility] Diagnosis A: Kidney, left, biopsy: RENAL CELL CARCINOMA, CLEAR CELL TYPE, ISUP/WHO NUCLEAR GRADE 1. CCG/FGT 10/04/2023 9:52 AM CDT [facility] Gross Description A: Kidney, left, left kidney: Multiple soft castillo-brown tissue cores and core fragments, less than 0.1 cm - 0.2 cm in length and up to 0.1 cm in diameter, entirely submitted in A1. ET 10/04/2023 9:52 AM CDT [facility] Biomarker Block(s) Tumor: A1 10/04/2023 9:52 AM CDT [facility] Disclaimer "Some tests reported here may have been developed and performance characteristics determined by [facility]. These tests have not been specifically cleared or approved by the U.S. Food and Drug Administration. If applicable, controls were reviewed and showed appropriate reactivity." 10/04/2023 9:52 AM CDT [facility] Tissue (Kidney, Left) 10/03/2023 10:19 AM CDT 10/03/2023 12:29 PM CDT us Shazia Arriaza MD LAB PATHOLOGY ORDERABLES F inal Result [place] [id number], * Prothrombin Time (10/03/2023 9:27 AM CDT) Prothrombin Time 12.6 11.9 - 14.5 second(s) 10/03/2023 9:57 AM CDT [facility] International Normalization Ratio 0.98 0.87 - 1.12 10/03/2023 9:57 AM T [facility] Blood Peripheral blood specimen / Unknown Venipuncture / Unknown 10/03/2023 9:27 AM CDT 10/03/2023 9:28 AM CDT us Abilio Ng PA-C LAB BLOOD ORDERABLES Final Result [facility] [address] [facility] [place] [address] * Type and Screen (10/03/2023 9:27 AM CDT) ABORh O POS 10/03/2023 9:17 AM CDT [facility] ABSC Negative 10/03/2023 9:17 AM CDT [facility] Clot Expiration 10/06/2023 23:59 10/03/2023 9:17 AM CDT [facility] Historical Record Check Complete 10/03/2023 9:17 AM CDT [facility] Blood Peripheral blood specimen / Unknown Venipuncture / Unknown 10/03/2023 9:27 AM CDT 10/03/2023 9:52 AM CDT us Conrado-Dannielle Ng PA-C BLOOD BANK TEST ORDERABLES Final Result [facility] [address] [place] [address] * X-ray Chest 2 Views (09/19/2023 9:24 [...] radiologicfindings that are unexpected and potentially actionable. us Shazia Arriaza MD IMG DIAGNOSTIC IMAGING ORD ERABLES Final Result * EKG, 12-Lead (Scheduled) (09/19/2023) us Shazia Arriaza MD ECG ORDERABLES Final Resu lt STEPH IECG * Metanephrines Fractionated (09/16/2023 4:24 PM CDT) Normetane Free-Maxwell 0.43 <0.90 nmol/L 09/19/2023 2:59 PM CDT [facility] Metanephr Free-Maxwell <0.20 <0.50 nmol/L 09/19/2023 2:59 PM CDT [facility] Comment: ADDITIONAL INFORMATION This test was developed and its performance characteristics determined by [facility] in a manner consistent with CLIA requirements. This test has not been cleared or approved by the U.S. Food and Drug Administration. Test Performed by: [facility] [address] [place] [address] Application Designer: Scot Skelton M.D. Ph.D.; CLIA# [id number] Blood Peripheral blood specimen / Unknown Venipuncture / Unknown 09/16/2023 4:24 PM CDT 09/16/2023 4:41 PM CDT Shazia Arriaza MD LAB BLOOD ORDERABLES Final Result Performing Organization Address [facility] Co de Phone Number [facility]FF * Hepatitis C Virus Antibody (09/16/2023 4:24 PM CDT) [facility] HCVAb. Non Reactive Non Reactive 09/17/2023 9:11 AM CDT [facility] Blood Peripheral blood specimen / Unknown Venipuncture / Unknown 09/16/2023 4:24 PM CDT 09/16/2023 4:41 PM CDT Narrative [facility] - 09/17/2023 9:11 AM CDT Antibody detection in the immunocompromised and immunosuppressed population may be delayed or absent entirely. Therefore serial testing, correlation with other clinical findings, and supplemental testing (if available) should be taken into consideration when interpreting the results. Shazia Arriaza MD LAB BLOOD ORDERABLES Final Result [facility] Unless otherwise noted, all lab tests performed by: Division of Pathology and Laboratory Medicine [address] [place] [phone] * Aldosterone Level (09/16/2023 4:24 PM CDT) [facility] Aldosterone-Merigold 8.1 <=21 ng/dL 09/20/2023 1:02 AM CDT [facility] Comment: ADDITIONAL INFORMATION Reference range for patients 11 years and older is based on upright A.M. collection from subjects without sodium restrictions. This test was developed and its performance characteristics determined by [facility] in a manner consistent with CLIA requirements. This test has not been cleared or approved by the U.S. Food and Drug Administration. Test Performed by: [facility] - [address] [address] Application Designer: Scot Skelton M.D. Ph.D.; CLIA# [id number] Blood Peripheral blood specimen / Unknown Venipuncture / Unknown 09/16/2023 4:24 PM CDT 09/16/2023 4:41 PM CDT Shazia Arriaza MD LAB BLOOD ORDERABLES Final Result [facility] * Renin Activity (09/16/2023 4:24 PM CDT) [facility] Renin Activity-Merigold 4.3 ng/mL/h 09/19 3:42 PM CDT [facility] Comment: REFERENCE VALUE (Peripheral vein specimen) Na-deplete, upright: Mean: 5.9 Range: 2.9-10.8 Na-replete, upright: Mean: 1.0 Range: < or =0.6-3.0 ADDITIONAL INFORMATION Testing performed by Liquid Chromatography-Tandem Mass Spectrometry (LC-MS/MS). This test was developed and its performance characteristics determined by [facility] in a manner consistent with CLIA requirements. This test has not been cleared or approved by the U.S. Food and Drug Administration. Test Performed by: [facility] - [address] [address] Application Designer: Scot Skelton M.D. Ph.D.; CLIA# [id number] Blood Peripheral blood specimen / Unknown Venipuncture / Unknown 09/16/2023 4:24 PM CDT 09/16/2023 4:41 PM CDT us Shazia Arriaza MD LAB BLOOD ORDERABLES Final Result [facility] TIFF * Urine Culture (09/16/2023 4:24 PM CDT) Pathologist [facility] Urine Culture Normal site mirna present. Generally of low significance. Correlate with clinical data and culture history. 09/18/2023 8:31 AM CDT [facility] Urine Voided urine specimen / Unknown Non-blood Collection / Unknown 09/16/2023 4:24 PM CDT 09/16/2023 4:41 PM CDT us Shazia Arriaza MD MICROBIOLOGY - GENERAL ORD ERABLES Final Result [facility] Unless otherwise noted, all lab tests performed by: Division of Pathology and Laboratory Medicine [address] [place] [phone] * TSH (09/16/2023 4:24 PM CDT) [facility] Thyroid Stimulating Hormone 1.43 0.27 - 4.20 mcunit/mL 09/16/2023 5:23 PM CDT [facility] Blood Peripheral blood specimen / Unknown Venipuncture / Unknown 09/16/2023 4:24 PM CDT 09/16/2023 4:41 PM CDT us Shazia Arriaza MD LAB BLOOD ORDERABLES Final Result [facility] [address] [facility] [place] [address] * T4 (09/16/2023 4:24 PM CDT) Pathologist [facility] Thyroxine 7.0 4.5 - 11.7 mcg/dL 09/16/2023 5:55 PM CDT [facility] Blood Peripheral blood specimen / Unknown Venipuncture / Unknown 09/16/2023 4:24 PM CDT 09/16/2023 4:41 PM CDT Shazia Arriaza MD LAB BLOOD ORDERABLES Final Result [facility] Unless otherwise noted, all lab tests performed by: Division of Pathology and Laboratory Medicine [address] [place] [id number] * Confirm ABORh (09/16/2023 4:23 PM CDT) [facility] ABORh Confirm O POS 09/16/2023 4:15 PM CDT [facility] - TRANSFUSION SERVICES Blood Peripheral blood specimen / Unknown Venipuncture / Unknown 09/16/2023 4:23 PM CDT 09/16/2023 4:41 PM CDT Shazia Arriaza MD BLOOD BANK TEST ORDERABLES Final Result [facility] - TRANSFUSION SERVICES [facility] [address] [place] [address] [id number] [place] [address] * OSI CT Abdomen and Pelvis (07/18/2023 7:40 AM FLAME HARDENING MACHINE OPERATOR) Narrative Systemgenerated, Documentation - 08/08/2023 7:40 AM CDT Study acquired at another institution. For comparison only. No [facility] originated interpretation requested or available. us Margoth Souza MD IMG OUTSIDE IMAGE ORDERABLES Fin al Result * OSI CT Brain (07/17/2023 7:40 AM FLAME HARDENING MACHINE OPERATOR) Narrative Systemgenerated, Documentation - 08/08/2023 7:40 AM CDT Study acquired at another institution. For comparison only. No [facility] originated interpretation requested or available. us Margoth Souza MD IMG OUTSIDE IMAGE ORDERABLES Fin al Result after 03/31/2023 Insurance [facility] PPO POS [facility] PPO POS Advance Directives * Full Code (Latest Code Status on File) Date Activated Date Inactivated Comments 01/02/2024 1:48 PM 01/03/2024 7:17 PM Care Teams Putty And Patch Worker Relationship Specialty Start Date End Date Margoth Souza MD [address] [place] [id number] [email or web address] PCP - General Urology 07/30/23 Mary Jane Cassidy MD [facility] [place] [address] [email or web address] Consulting Physician Endocrinology 12/09/23 Barry He MD [address] [place] [address] [email or web address] Consulting Physician Internal Medicine 12/23/23 Patience Hunt MD [address] [place] [address] [email or web address] Consulting Physician Endocrinology 12/31/23
[2024-03-30] MEDS ORDERED: ONDANSETRON 4 MG/2 ML VIAL ONE ×2 (13:04→20:28)
[2024-03-30] MEDS ORDERED: NA CHLORIDE 0.9% 1,000 ML ONE (13:04)
[2024-03-30] MEDS ORDERED: cloNIDine HCL 0.1 MG TAB ONE (13:59)
[2024-03-30] MEDS ORDERED: HYDRALAZINE HCL 20 MG/ML VIAL ONE ×2 (13:59→20:16)
[2024-03-30 14:23] LABS: Arterial Blood Carboxyhemoglob 3.3 % (0-1.5); Blood Gas Oxyhemoglobin 45.7 % (94-97); Blood O2 Saturation 48.2 % (92-98.5)
[2024-03-30 14:24] LABS: Blood Gas THB 14.2 g/dl (12-18)
[2024-03-30 14:29] LABS: Absolute Basophils 0.1 K/uL (0-0.5); Absolute Eosinophils 0.1 K/uL (0-0.5); Absolute Lymphocytes (CBC) 1.5 K/uL (0.7-4.9); Absolute Monocytes 0.5 K/uL (0.1-1.3); Absolute Neutrophil 7.4 K/uL (1.8-8.0); Basophils % 0.7 % (0-1.3); Eosinophils % 1.3 % (0-4.4); Hemoglobin 13.5 g/dL (13.6-17.9); Lymphocytes % 15.5 % (15.3-44.8); MCH 25.7 pg (27.0-35.0); MCV 77.9 fL (80-100); MPV 7.9 fL (7.6-11.3); Monocytes % 5.2 % (3.3-12.3); Neutrophils % 77.3 % (41.7-73.7); Platelets 300 thou/uL (152-406); RBC Red Blood Cell Count 5.27 M/uL (4.33-5.43); Red Cell Distribution Width 16.5 % (12.1-15.2)
[2024-03-30] MEDS ORDERED: METOCLOPRAMIDE 10 MG/2mL INJ ONE (14:40)
[2024-03-30 14:53] LABS: Albumin/Globulin Ratio 0.8 (1.1-1.8); BETA HYDROXYBUTYRATE 1.03 mmol/L (0.02-0.27); Bilirubin Total 0.6 mg/dL (0.2-1.0); Globulin 4.9 g/dL (2.3-3.5); Protein, Total 8.9 g/dL (6.4-8.2)
--- NOTE | 2024-03-30 17:14 | ER ---
Nurse's Notes [facility] Name: Zeke Mackay Sr Age: 59 yrs Sex: Male : 1965 Arrival Date: 03/30/2024 Time: 12:12 Bed 19 Private MD: Diagnosis: Nausea with vomiting, unspecified;Congenital hypertrophic pyloric stenosis Presentation: 03/30 12:41 Chief complaint: Patient states: Nausea, sweating and chills that began this morning. ss Coronavirus screen: Client denies travel out of the [place] in the last 14 days. Ebola Screen: Patient denies exposure to infectious person. Patient denies travel to an Ebola-affected area in the 21 days before illness onset. Initial Sepsis Screen: Does the patient meet any 2 criteria? No. Patient's initial sepsis screen is negative. Does the patient have a suspected source of infection? No. Patient's initial sepsis screen is negative. Risk Assessment: Do you want to hurt yourself or someone else? Patient reports no desire to harm self or others. Onset of symptoms was March 30, 2024. 12:41 Method Of Arrival: Ambulatory ss 12:41 Acuity: RICKEY 2 Triage Assessment: 12:45 General: Appears distressed, ill, Behavior is cooperative, appropriate for age, bp agitated, anxious. Pain: Denies pain. EENT: No deficits noted. Neuro: No deficits noted. Cardiovascular: Rhythm is sinus rhythm. Respiratory: No deficits noted. GI: Reports nausea, vomiting. : No signs and/or symptoms were reported regarding the genitourinary system. Derm: No deficits noted. Musculoskeletal: No deficits noted. 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 - Infectious Disease History:: Denies. - Social history:: Smoking status: Patient denies any tobacco usage or history of. Screenin:22 [facility] ED Fall Risk Assessment (Adult) History of falling in the last 3 months, bp including since admission No falls in past 3 months (0 pts) Confusion or Disorientation No (0 pts) Intoxicated or Sedated No (0 pts) Impaired Gait No (0 pts) Mobility Assist Device Used No (0 pt) Altered Elimination No (0 pt) Score/Fall Risk Level 0 - 2 = Low Risk. Abuse screen: Denies threats or abuse. Denies injuries from another. Nutritional screening: No deficits noted. Tuberculosis screening: No symptoms or risk factors identified. Assessment: 12:43 Reassessment: Dr. Guzman assessing patient at this time in triage. ss 13:15 Reassessment: MX STAFF UNABLE TO OBTAIN PIV, MD NOTIFIED. bp 14:21 Reassessment: PIV PLACED, IVF INFUSING. bp 15:38 Reassessment: PIV D/C BY PT. MD NOTIFIED. bp 16:13 Reassessment: No changes from previously documented assessment. Patient is alert, bp oriented x 3, equal unlabored respirations, skin warm/dry/pink. Pain: Denies pain. GI: Abdomen is non-distended. 17:20 Reassessment: TRANSFER INITIATED. bp 19:10 General: Appears in no apparent distress. Behavior is calm, cooperative, appropriate rg5 for age. 19:10 Pain: Denies pain. Neuro: Level of Consciousness is awake, alert, obeys commands, rg5 Oriented to person, place, time. Cardiovascular: Denies chest pain. Respiratory: Airway is patent Trachea midline Respiratory effort is even, unlabored, Respiratory pattern is regular, symmetrical. GI: Abdomen is round non-distended, Reports nausea, vomiting. : No signs and/or symptoms were reported regarding the genitourinary system. EENT: No deficits noted. Derm: No deficits noted. Musculoskeletal: Circulation, motion, and sensation intact. Range of motion: intact in all extremities. Vital Signs: 12:41 BP 200 / 92; Pulse 69; Resp 14; Temp 98.2(TE); Pulse Ox 100% on R/A; Weight 95.25 kg; ss Height 6 ft. 2 in. ; Pain 0/10; 15:37 BP 175 / 106; Pulse 87; Resp 16; Pulse Ox 98% ; bp 19:10 BP 187 / 90; Pulse 88; Resp 18; Temp 98; Pulse Ox 96% on R/A; rg5 20:30 BP 159 / 83; Pulse 88; Resp 18; Temp 98(O); Pulse Ox 99% on R/A; Pain 0/10; rg5 12:41 Body Mass Index 26.96 (95.25 kg, 187.96 cm) ss 12:41 Pain Scale: Adult ss 20:30 Pain Scale: Adult rg5 ED Course: 12:14 Patient arrived in ED. mr 12:16 Emma Guzman MD is Attending Physician. gb1 12:42 Triage completed. ss 12:42 Arm band placed on left wrist. ss 12:46 John Parrish, RN is Primary Nurse. bp 14:18 Accessed peripheral vein via ultrasound, utilizing dynamic ultrasound technique using ss 20G Nexia IV catheter ,sterile technique, per hospital protocol. Good blood return. Flushes easily. 14:22 Patient has correct armband on for positive identification. bp 16:13 Inserted saline lock: 20 gauge in right EJ, using aseptic technique. Flushed with 10 mL bp NS. 16:21 initiated transfer to [facility]. bd 17:20 No provider procedures requiring assistance completed. Patient transferred, IV remains bp in place. 18:19 pt accepted transfer to [facility] [id number] Thorpe, admin approval given by jonathan Pat. 19:10 Provided Education on: NEED FOR TRANSFER. rg5 20:30 Patient transferred, IV remains in place. rg5 Administered Medications: 14:12 Drug: Ondansetron IVP 4 mg IVP once; over 2 minutes Route: IVP; Site: right upper arm; ss 16:49 Follow up: Response: No adverse reaction bp 14:21 Drug: NS 0.9% IV 1000 ml IV at 1 bolus Per protocol; to be given as a bolus over 60 bp minutes Route: IV; Rate: 1 bolus; Site: right upper arm; 16:49 Follow up: IV Status: Completed infusion bp 14:21 Drug: hydrALAZINE IVP 20 mg IVP once Route: IVP; Site: right upper arm; bp 16:49 Follow up: Response: No adverse reaction bp 15:15 Drug: metoCLOPramide IVP 10 mg IVP once; over 1 to 2 minutes Route: IVP; Site: right bp upper arm; 16:50 Follow up: Response: No adverse reaction bp 16:49 Not Given (Patient Refused): clonidine0.2 mg PO once bp 20:38 Drug: Ondansetron IVP 4 mg IVP once; over 2 minutes Route: IVP; Site: right jugular; rg5 20:43 Follow up: Response: No adverse reaction rg5 20:39 Drug: hydrALAZINE IVP 10 mg IVP once Route: IVP; Site: right jugular; rg5 20:43 Follow up: Response: No adverse reaction rg5 Medication: 17:20 VIS not applicable for this client. bp Outcome: 17:13 ER care complete, transfer ordered by . anette 20:30 Transferred by ground EMS to [facility], rg5 20:30 Condition: stable 20:30 Instructed on the need for transfer, 20:40 Patient left the ED. sb4 Signatures: Winnie Benítez Mary, Reg Dillan mr Ruchi Navarrete, RN RN ss John Parrish, RN RN Sapna Yoo, PA-C PA-C sb4 Emma Guzman MD MD gb1 Alec Fuentes, RN RN rg5 Corrections: (The following items were deleted from the chart) 12:43 12:41 Acuity: RICKEY 3 ss ss
--- NOTE | 2024-03-30 17:14 | EDPHYS ---
Physician Documentation [facility] Name: Zeke Mackay Sr Age: 59 yrs Sex: Male : 1965 Arrival Date: 03/30/2024 Time: 12:12 Bed 19 Private MD: ED Physician Emma Guzman HPI: 03/30 17:15 This 59 yrs old Male presents to ER via Ambulatory with complaints of gb1 Nausea/Vomiting, Chills. 17:13 Patient with nausea vomiting last 2 to 3 days. He has a history of diabetes, gb1 hypertension and acute pancreatitis for which he is noncompliant with his diet as per the last previous medical note. He did have an endoscopy the by Dr. Simeon last week when he was in the hospital for similar symptoms. He denies any abdominal pain.. 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 - Infectious Disease History:: Denies. - Social history:: Smoking status: Patient denies any tobacco usage or history of. Exam: 17:13 Constitutional: This is a well developed, well nourished patient who is awake, alert, gb1 and in no acute distress. Head/Face: Normocephalic, atraumatic. Eyes: Pupils equal round and reactive to light, extra-ocular motions intact. Lids and lashes normal. Conjunctiva and sclera are non-icteric and not injected. Cornea within normal limits. Periorbital areas with no swelling, redness, or edema. ENT: Nares patent. No nasal discharge, no septal abnormalities noted. Tympanic membranes are normal and external auditory canals are clear. Oropharynx with no redness, swelling, or masses, exudates, or evidence of obstruction, uvula midline. Mucous membranes moist. Neck: Trachea midline, no thyromegaly or masses palpated, and no cervical lymphadenopathy. Supple, full range of motion without nuchal rigidity, or vertebral point tenderness. No Meningismus. Chest/axilla: Normal chest wall appearance and motion. Nontender with no deformity. No lesions are appreciated. Cardiovascular: Regular rate and rhythm with a normal S1 and S2. No gallops, murmurs, or rubs. Normal PMI, no JVD. No pulse deficits. Respiratory: Lungs have equal breath sounds bilaterally, clear to auscultation and percussion. No rales, rhonchi or wheezes noted. No increased work of breathing, no retractions or nasal flaring. Abdomen/GI: Soft, non-tender, with normal bowel sounds. No distension or tympany. No guarding or rebound. No evidence of tenderness throughout. Back: No spinal tenderness. No costovertebral tenderness. Full range of motion. Skin: Warm, dry with normal turgor. Normal color with no rashes, no lesions, and no evidence of cellulitis. MS/ Extremity: Pulses equal, no cyanosis. Neurovascular intact. Full, normal range of motion. Vital Signs: 12:41 BP 200 / 92; Pulse 69; Resp 14; Temp 98.2(TE); Pulse Ox 100% on R/A; Weight 95.25 kg; ss Height 6 ft. 2 in. ; Pain 0/10; 15:37 BP 175 / 106; Pulse 87; Resp 16; Pulse Ox 98% ; bp 19:10 BP 187 / 90; Pulse 88; Resp 18; Temp 98; Pulse Ox 96% on R/A; rg5 20:30 BP 159 / 83; Pulse 88; Resp 18; Temp 98(O); Pulse Ox 99% on R/A; Pain 0/10; rg5 12:41 Body Mass Index 26.96 (95.25 kg, 187.96 cm) 12:41 Pain Scale: Adult ss 20:30 Pain Scale: Adult rg5 MDM: 12:38 Medical Screening Exam initiated gb1 17:13 Data reviewed: vital signs, nurses notes, lab test result(s). ED course: 59-year-old gb1 male with intractable nausea and vomiting with a recent EGD that showed pyloric stenosis with a biopsy of the antrum pending. I discussed the case with Dr. Simeon who recommended transfer for higher level of care for stent placement at the pylorus. [facility] a GI consult that she will establish once the patient arrives in the Medical Center.. 03/30 12:46 Order name: CBC with Diff; Complete Time: 14:38 [facility] 03/30 12:46 Order name: CMP; Complete Time: 15:01 [facility] 03/30 12:46 Order name: Lipase; Complete Time: 15:01 [facility] 03/30 12:47 Order name: ABG; Complete Time: 14:38 [facility] 03/30 12:47 Order name: BETA HYDROXYBUTYRATE; Complete Time: 15:01 [facility] 03/30 12:46 Order name: IV Saline Lock; Complete Time: 14:21 gb1 03/30 12:46 Order name: Labs collected and sent; Complete Time: 13:17 gb Administered Medications: 14:12 Drug: Ondansetron IVP 4 mg IVP once; over 2 minutes Route: IVP; Site: right upper arm; ss 16:49 Follow up: Response: No adverse reaction bp 14:21 Drug: NS 0.9% IV 1000 ml IV at 1 bolus Per protocol; to be given as a bolus over 60 bp minutes Route: IV; Rate: 1 bolus; Site: right upper arm; 16:49 Follow up: IV Status: Completed infusion bp 14:21 Drug: hydrALAZINE IVP 20 mg IVP once Route: IVP; Site: right upper arm; bp 16:49 Follow up: Response: No adverse reaction bp 15:15 Drug: metoCLOPramide IVP 10 mg IVP once; over 1 to 2 minutes Route: IVP; Site: right bp upper arm; 16:50 Follow up: Response: No adverse reaction bp 16:49 Not Given (Patient Refused): clonidine0.2 mg PO once bp 20:38 Drug: Ondansetron IVP 4 mg IVP once; over 2 minutes Route: IVP; Site: right jugular; rg5 20:43 Follow up: Response: No adverse reaction rg5 20:39 Drug: hydrALAZINE IVP 10 mg IVP once Route: IVP; Site: right jugular; rg5 20:43 Follow up: Response: No adverse reaction rg5 Disposition Summary: 03/30/24 17:13 Transfer Ordered Notes: Transfer Location: [facility] gb1 Reason: Higher level of care gb1 Condition: Stable gb1 Problem: chronic gb1 Symptoms: have worsened gb1 Accepting Physician: DR. NATASHA BRISCOE(03/30/24 20:40) sb4 Diagnosis - Nausea with vomiting, unspecified gb1 - Congenital hypertrophic pyloric stenosis gb1 Forms: - Medication Reconciliation Form gb1 - SBAR form gb1 Signatures: Dispatcher [employer] EDMS Ruchi Navarrete, RN RN ss John Parrish RN RN Sapna Yoo, PA-C PA-C sb4 Emma Guzman MD MD gb1 Alec Fuentes RN RN rg5 Corrections: (The following items were deleted from the chart) 12:47 12:47 BETA HYDROXYBUTYRATE+C.LAB.BRZ ordered. EDMS EDMS 20:40 17:13 DR. NATASHA BRISCOE gb1 sb4
[2024-03-30 21:05] VITALS: TEMP 98
[2024-03-30 21:07] VITALS: BP 159/83; O2SAT 99
== END 2024-03-30 20:40 | disposition short-term general hospital (02) ==
LOC: ER 12:12
DX: Q40.0 Congenital hypertrophic pyloric stenosis (principal); E11.9 Type 2 diabetes mellitus without complications; I10 Essential (primary) hypertension; Z95.1 Presence of aortocoronary bypass graft
CPT/HCPCS: 85025; 36415; 83690; 80053; 82010; 82805; J0360 ×2; J2765; J2405 ×2; J7030; 99285

== ENCOUNTER 2024-04-12 02:55 | Emergency (ER) | payer OTHER ==
--- OUTSIDE RECORDS SUMMARY | 2024-04-12 03:00 | XMS REPORT | Clinical Summary ---
Author Name Unknown Organization [facility] Address [address] [place] [address] Care Team Providers [facility] Name Role Phone Margoth Souza MD Primary Care Provider [phone] Mary Jane Cassidy MD Unavailable [phone] Barry He MD Unavailable Patience Hunt MD Unavailable Eagle Zhu DO Unavailable [phone] Allergies No known active allergies Medications dapagliflozin [...] 4 1:52 PM CDT 01/03/20 24 Active aspirin 81 mg chewable tablet Chew and swallow 1 tablet (81 mg) by mouth daily. 01/29/20 Active metoprolol tartrate (LOPRESSOR) 25 mg tablet Take 1 tablet (25 mg) by mouth twice daily. 01/20/20 Active atorvastatin (LIPITOR) 40 mg tablet Take 1 tablet (40 mg) by mouth daily. 01/20/20 Active pantoprazole (PROTONIX) 40 mg EC tablet Take 1 tablet (40 mg) by mouth every morning before breakfast. 02/29/20 Active clopidogrel (Plavix) 75 mg tablet Take 1 tablet (75 mg) by mouth daily. 01/20/20 Active prochlorperazin e (Compazine) 10 mg tabletIndicatio ns:Adenocarcino ma of stomach Take 1 tablet (10 mg) by mouth every 6 (six) hours as needed for nausea or vomiting. 30 tablet 2 04/09/20 Active tadalafil (CIALIS) 5 mg tablet Take [...] 30 days as directed. 510 g 01/03/20 24 024 Active Problems Problem Noted Date Diagnosed Date Current use of 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 04/09/2024 Atherosclerosis of coronary 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 04/09/2024 Adenocarcinoma of stomach 04/08/2024 Hemoglobin A1c greater than 9% indicating poor diabetic control 01/02/2024 salvage determiner current use of systemic steroid 2023 Adverse [...] Encounters Date Type Department Care Team Description 04/09/2024 8:25 PM SAFETY PERSON Ancillary Procedure [facility] [address] [place] [address] 44[address] Margoth Souza MD Cancer 04/09/2024 8:20 PM SAFETY PERSON Ancillary Procedure [facility] [address] [place] [address] 19522 Margoth Souza MD Cancer 04/09/2024 8:15 PM SAFETY PERSON Ancillary Procedure [facility] [address] [place] [address] 18330 Margoth Souza MD Cancer 04/09/2024 8:10 PM SAFETY PERSON Ancillary Procedure [facility] [address] [place] [address] 701[address] Margoth Souza MD Cancer 04/09/2024 8:05 PM SAFETY PERSON Ancillary Procedure [facility] [address] [place] [address] 50753 Margoth Souza MD Cancer 04/09/2024 8:00 PM SAFETY PERSON Ancillary Procedure [facility] [address] [place] [address] 02505 Margoth Souza MD Cancer 04/09/2024 10:48 AM SAFETY PERSON - 04/09/2024 11:59 PM SAFETY PERSON Hospital Encounter [facility] [address] [place] [address] Main [facility], [place] [address] Ceci Nicholson MD Encounter for other preprocedural examination; Atherosclerosis of coronary 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, not otherwise specified; 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 Discharge Disposition: Home 04/09/2024 10:00 AM SAFETY PERSON POEM Appointments [facility] [address] [place] [address], [address] [place] [address] Margoth Souza MD 04/09/2024 9:56 AM SAFETY PERSON - 04/09/2024 10:47 AM SAFETY PERSON Hospital Encounter [facility] [address] [place] [address], 2nd [place] [address] Ceci Nicholson MD Adenocarcinoma of stomach; Hyperlipidemia, not otherwise specified; Encounter for other preprocedural examination; Atherosclerosis of coronary 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, not otherwise specified Discharge Disposition: Home 04/09/2024 9:00 AM SAFETY PERSON Consult Perioperative Evaluation [facility] Management [address] [place] [address], [address] [place] [address] Mary Kay Santamaria APRN Misoi, Mercy W, MD Encounter for other preprocedural examination (Primary Dx); Adenocarcinoma of stomach; Paroxysmal atrial fibrillation; Hypertension; 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; Hyperlipidemia, not otherwise specified; Current use of 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; Atherosclerosis of coronary 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, not otherwise specified 04/09/2024 Travel 04/08/2024 11:59 PM SAFETY PERSON Anesthesia Event [facility] [address] [place] [address], [address] [place] [phone] Curtis Moctezuma PA 04/08/2024 Prep for Surgery [facility] [address] [place] [address], [address] [place] [address] Mary Kay Santamaria APRN Adenocarcinoma of stomach (Primary Dx) 04/08/2024 Orders Only [facility] [address] [place] [address], 7th [facility] [place] [address] Mary Kay Santamaria APRN Adenocarcinoma of stomach (Primary Dx); Paroxysmal atrial fibrillation; Hypertension; 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; Hyperlipidemia, not otherwise specified; Current use of 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 04/08/2024 Orders Only [facility], 7th [place] [address] Gillian Gomez PA-C Adenocarcinoma, NOS of stomach, NOS (Primary Dx) 04/06/2024 Orders Only [facility] [address] [place] [address], 7th [place] [address] Roberto Poole PA 04/06/2024 Orders Only [facility] [address] [place] [address], 7th [place] [address] Roberto Poole PA Mass of stomach (Primary Dx) 04/06/2024 Orders Only [facility] [address] [place] [address], 7th [place] [address] Roberto Poole PA Mass of stomach (Primary Dx) 04/06/2024 Telephone [facility] [address] [place] [address], 7th [place] [address] Anais Meng RN 02/11/2024 Travel 02/10/2024 3:30 PM CDT Telemedicine [facility] [address] [place] [address], 7th [place] [address] Margoth Souza MD Renal mass (Primary Dx) 01/02/2024 7:15 AM CDT Ancillary Procedure MAIN OR [address] [place] [phone] Margoth Souza MD 01/02/2024 7:00 AM CDT - 01/02/2024 11:40 AM CDT Surgery MAIN OR [address] [place] [address] 25331 Margoth Souza MD ROBOTIC ASSISTED PARTIAL NEPHRECTOMY 01/02/2024 6:58 AM CDT Anesthesia Event MAIN OR [address] [place] [address] Alonzo Liu MD Majekodumi, Jessy, CRNA 01/02/2024 5:04 AM CDT - 01/03/2024 5:05 PM CDT Hospital Encounter MAIN P09B [address] [place], [place] [phone] Margoth Souza MD Renal mass (Primary Dx) Discharge Disposition: Home 01/02/2024 Travel 12/31/2023 1:04 PM CDT - 12/31/2023 11:59 PM CDT Hospital Encounter Main CT IMAGING [address] [place] [address], 3rd [place] [address] Margoth Souza MD Renal mass Discharge Disposition: Home 12/31/2023 8:00 AM CDT Consult Endocrine Center [address] [place] [address], 6th Floor Elevator [place] [phone] Nakia Kirby APRN Khan, Sonya, MD Type 2 diabetes mellitus with hyperglycemia [E11.65] (Primary Dx); Pre-surgery evaluation 12/30/2023 9:30 AM CDT Office Visit [facility] [address] [place] [address], 7th [place] [address] Margoth Souza MD Renal mass 12/30/2023 Travel 12/30/2023 Telephone Endocrine Center [address] [place] [address], [facility] Floor Elevator [place] [phone] Winnie Archibald, RN Appointment (Cannot get internet-phone broke) 12/30/2023 Orders Only [facility] [address] [place] [address], 7th [place] [address] Roberto Poole PA Renal mass (Primary Dx) 12/29/2023 Orders Only Endocrine Center [address] [place] [address], 6th [place] [address] Veronica Del Castillo APRN 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); Endocrine/metabolic screening; Renal cell carcinoma <Left side> 12/25/2023 8:36 AM CDT Anesthesia Event [facility] [address] [place], [place] [address] [address] Lien Antonio RN 12/23/2023 10:30 AM CDT Consult Perioperative Evaluation and Management [address] [place] [address] Margoth Souza MD Oh, Jeong, MD Encounter for other preprocedural examination (Primary Dx); Renal mass; Hyperlipidemia, not otherwise specified 12/23/2023 9:00 AM CDT POEM Appointments [facility] [address] [place] [address] Margoth Souza MD Pre-surgery evaluation (Primary Dx) 12/23/2023 8:45 AM CDT - 12/23/2023 11:59 PM CDT Hospital Encounter [facility] [address] [place] [address] Margoth Souza MD Renal mass Discharge Disposition: Home 12/23/2023 Travel 12/09/2023 9:33 AM CDT - 12/09/2023 11:59 PM CDT Hospital Encounter [facility] [address] [place] [address] Veronica Del Castillo APRN 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; Endocrine/metabolic screening Discharge Disposition: Home 12/09/2023 8:30 AM CDT Consult Endocrine Center [address] [place], [place] [phone] Mary Jane Cassidy MD 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); Endocrine/metabolic screening; Renal cell carcinoma <Left side> 12/09/2023 Travel 10/23/2023 Orders Only [facility] [address] [facility], 7th [place] [address] Roberto Poole PA Renal mass (Primary Dx); Adrenal mass 10/03/2023 9:30 AM CDT - 10/03/2023 11:59 PM CDT Hospital Encounter Interventional Radiology [address] [place] [address], 4th [place] [address] Shazia Arriaza MD McRae, Stephen, MD Renal mass Discharge Disposition: Home 10/03/2023 8:30 AM CDT - 10/03/2023 9:29 AM CDT Hospital Encounter [facility] [address] [place] [address] Margoth Souza MD Renal mass Discharge Disposition: Home 10/03/2023 Travel 10/02/2023 8:24 AM CDT - 10/02/2023 11:59 PM CDT Hospital Encounter Interventional Radiology [address] [place] [address], [address] [place] [address] Margoth Souza MD Ho, [facility] Justina, PA-C Encounter for other preprocedural examination (Primary Dx); Renal mass; 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 Discharge Disposition: Home 10/02/2023 Travel 09/24/2023 7:46 AM CDT - 09/24/2023 11:59 PM CDT Hospital Encounter [facility] [address] [place] [address] Roberto Poole PA Adrenal mass Discharge Disposition: Home 09/20/2023 Orders Only [facility] [address] [place] [address], [facility] Floor [facility] [place] [place] [address] Roberto Poole PA Adrenal mass (Primary Dx) 09/19/2023 11:45 AM CDT Ancillary Procedure X-Ray Outpatient Center [address] [place] [address], 7th [place] [address] Sahzia Arriaza MD Renal mass 09/19/2023 9:20 AM CDT - 09/19/2023 11:59 PM CDT Hospital Encounter [facility] [address] [place] [address] Shazia Arriaza MD Adenoma, NOS of adrenal gland, NOS <Left> Discharge Disposition: Home 09/19/2023 Orders Only Interventional Radiology [address] [facility], 4th [place] [address] Abilio Ng PA-C Renal mass (Primary Dx) 09/19/2023 Travel 09/19/2023 Telephone MD Gimenez [facility] [address] [place] [address] Barbara Rees MA 09/16/2023 4:00 PM CDT - 09/16/2023 11:59 PM CDT Hospital Encounter [facility] [address] [place] [address] Shazia Arriaza MD Renal mass; Adrenal mass Discharge Disposition: Home 09/16/2023 2:00 PM CDT Office Visit [facility] [address] [place] [address], 7th [place] [address] Margoth Souza MD Renal mass (Primary Dx); Adrenal mass; Adenoma, NOS of adrenal gland, NOS <Left>; 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 09/16/2023 12:30 PM CDT NPR MDA PATIENT ACCESS 09/16/2023 Travel 08/08/2023 8:00 PM CDT Ancillary Procedure Image Library [address] [place] [address] Margoth Souza MD Cancer 08/08/2023 6:40 AM CDT Ancillary Procedure Image Library [address] [place] [address] 477[address] Margoth Souza MD Cancer after 04/13/2023 Surgical History Surgery Date Site/Laterality Comments TOE [...] Renal cell carcinoma <Left side> Diabetic ketoacidosis [facility] ed locally 12/03/2023-12/06/2023 Type 2 diabetes mellitus wit h hyperglycemia 01/02/2024 Social History Tobacco Use Types Packs/Day Years Used Date Smoking Tobacco: Never Smokeless Tobacco: Never Alcohol Use Standard Drinks/Week Comments Not Currently 0 (1 standard drink = 0.6 oz pur e alcohol) Sex and Gender Information Value Date Recorded Sex Assigned at Not on file Legal Sex Male 11:38 AM SAFETY PERSON Gender Identity Not on file Sexual Orientation Not on file Occupation Industry Job Start Date Job End Date retired from [employer] Not on file N ot on file Not on file Obstetrics History Last Filed Vital Signs Vital Sign Reading Time Taken Comments Blood Pressure 177/94 04/09/2024 11:39 AM SAFETY PERSON Pulse 76 04/09/2024 11:39 AM SAFETY PERSON Temperature 36 C (96.8 F) 04/09/2024 8:53 AM SAFETY PERSON Respiratory Rate 18 04/09/2024 8:53 AM SAFETY PERSON Oxygen Saturation 98% 04/09/2024 8:53 AM SAFETY PERSON Inhaled Oxygen Concentration - - Weight 86 kg (189 lb 9.5 oz) 04/09/2024 8:53 AM SAFETY PERSON Height 182.5 cm (5' 11.85") 01/02/2024 2:32 PM C DT Body Mass Index 25.82 01/02/2024 2:32 PM CDT Plan of Treatment Upcoming Encounters Date Type Department Care Team (Latest Contact Info) Description 04/13/2024 1:45 PM SAFETY PERSON Appointment [facility] [address] [place] [address], [place] [address] Gillian Gomez PA-C [address] [place] [phone] [email or web address] 04/13/2024 3:00 PM SAFETY PERSON Consult [facility] [address] [place] [address], 7th [place] [address] Marianela Hutchinson MD [address] [place] [phone] [email or web address] 04/14/2024 2:30 PM SAFETY PERSON Consult [facility] Surgical Oncology [address] [place] [address], 7th [place] [address] Gillian Gomez PA-C [address] [place] [phone] [email or web address] John Fong MD [address] [place] [phone] [email or web address] 04/15/2024 2:25 PM SAFETY PERSON Hospital Encounter MAIN OR [address] [place] [address] John Fong MD [address] [place] [phone] [email or web address] 04/15/2024 2:25 PM SAFETY PERSON - 04/15/2024 10:00 PM SAFETY PERSON Surgery MAIN OR [address] [place] [address] John Fong MD [address] [place] [phone] [email or web address] ROBOTIC ASSISTED SURGICAL LAPAROSCOPY 02/05/2025 10:45 AM CDT Lab [facility] Cancer [facility], 7th [place] [address] Margoth Souza MD [address] [place] [phone] [email or web address] 02/05/2025 11:15 AM CDT Ancillary Procedure X-Ray Outpatient Center [address] [place] [address], [address] [place] [address] Margoth Souza MD [address] [place] [phone] [email or web address] 02/05/2025 12:20 PM CDT Ancillary Procedure CT Imaging [address] [place] [address], [address] [place] [address] Margoth Souza MD [address] [place] [phone] [email or web address] 02/08/2025 2:30 PM CDT Telemedicine [facility] [address] [place] [address], [address] [place] [address] Margoth Souza MD [address] [place] [phone] [email or web address] Scheduled Procedures Name Priority Associated Diagnoses Date/Ti hi ROBOTIC ASSISTED SURGICAL LAPAROSCOPY Adenocarcinoma of stomach 04/15/2024 2:25 PM SAFETY PERSON FLUORO GUIDANCE FOR CENTRAL VENOUS ACCESS DEVICE PLACEMENT, REPLACEMENT, OR REMOVAL Adenocarcinoma of stomach 04/15/2024 2:25 PM SAFETY PERSON US GUIDANCE WITH EVAL OF POTENTIAL ACCESS SITES, REALTIME US VISUALIZATION OF VASC NEEDLE ENTRY Adenocarcinoma of stomach 04/15/2024 2:25 PM SAFETY PERSON PORT-A-CATH PLACEMENT Adenocarcinoma of stomach 04/15/2024 2:25 PM SAFETY PERSON ROBOTIC ASSISTED GASTROJEJUNOSTOMY Adenocarcinoma of stomach 04/15/2024 2:25 PM SAFETY PERSON INTRAOPERATIVE TUBE OR NEEDL E CATHETER JEJUNOSTOMY FOR ENTERAL ALIMENTATION Adenocarcinoma of stomach 04/15/2024 2:25 PM SAFETY PERSON Health Maintenance Due Date Last Done Comments Pneumococcal Vaccine: Pediat rics (0 to 5 Years) and At-Risk Patients (6 to 64 Years) (1 of 2 - PCV) 01/09/1970 01/09/1975 COVID-19 Vaccine ( season) 2024 Influenza Vaccine (#1) 2024 08/04/2018 Procedures Procedure Name Priority Date/Time Associated Diagnosis Comments .CBC Routine 04/09/2024 11:09 AM SAFETY PERSON Encounter for other preprocedural examination Atherosclerosis of coronary 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, not otherwise specified THYROID STIMULATING HORMONE Routine 04/09/2024 11:09 AM SAFETY PERSON Encounter for other preprocedural examination Atherosclerosis of coronary 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, not otherwise specified HEMOGLOBIN A1C Routine 04/09/2024 11:09 AM SAFETY PERSON 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 Encounter for other preprocedural examination COMPREHENSIVE METABOLIC PANEL Routine 04/09/2024 11:09 AM SAFETY PERSON Encounter for other preprocedural examination Atherosclerosis of coronary 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, not otherwise specified COMPLETE BLOOD COUNT W/ DIFFERENTIAL Routine 04/09/2024 11:09 AM SAFETY PERSON Encounter for other preprocedural examination Atherosclerosis of coronary 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, not otherwise specified EKG, 12-LEAD (SCHEDULED) Routine 04/09/2024 Adenocarcinoma of stomach Hyperlipidemia, not otherwise specified Encounter for other preprocedural examination Atherosclerosis of coronary 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, not otherwise specified OSI CHEST Routine 03/23/2024 7:37 PM SAFETY PERSON Cancer OSI CT CHEST ABDOMEN PELVIS Routine 03/23/2024 7:37 PM SAFETY PERSON Cancer OSI CHEST Routine 03/23/2024 7:37 PM SAFETY PERSON Cancer OSI CT ABDOMEN AND PELVIS Routine 2023 7:36 PM CDT Cancer OSI CHEST Routine 01/20/2024 7:37 PM CDT Cancer OSI CHEST Routine 01/20/2024 7:37 PM CDT Cancer BASIC METABOLIC PANEL, CALCIUM TOTAL Routine 01/03/2024 [...] 6:08 AM CDT Renal mass Special Needs [email or web address] collect and send tissue to pathology window with appropriate label. [place] LAPAROSCOPY SURG PARTIAL NEPHRECTOMY 01/02/2024 6:08 AM CDT Renal mass Special Needs [email or web address]:Please collect and send tissue to pathology window [...] mass 30-DAY PRE-OP TYPE & SCREEN Routine 12/23/2023 8:51 AM CDT Renal mass HEMOGLOBIN A1C Routine 12/23/2023 8:51 AM CDT Renal mass URINALYSIS W/REFLEX CULTURE Routine 12/23/2023 8:51 AM CDT Renal mass COMPREHENSIVE METABOLIC PANEL Routine 12/23/2023 8:51 AM CDT Renal mass COMPLETE BLOOD COUNT W/ DIFFERENTIAL Routine 12/23/2023 8:51 AM CDT Renal mass DEHYDROEPIANDROSTERONE SULFATE Routine 12/09/2023 9:45 AM CDT 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 Endocrine/metabol ic screening CORTISOL, TOTAL Routine 12/09/2023 9:45 AM CDT 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 Endocrine/metabol ic screening ADRENOCORTICOTROPIC HORMONE Routine 12/09/2023 9:45 AM CDT 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 Endocrine/metabol ic screening IR CT GUIDED BIOPSY RENAL 60 [...] mass 30-DAY PRE-OP TYPE & SCREEN Routine 09/16/2023 4:24 PM CDT Renal mass METANEPHRINES FRACTIONATED Routine 09/15 4:24 PM CDT Adrenal mass ALDOSTERONE Routine 09/16/2023 4:24 PM CDT Adrenal mass RENIN ACTIVITY Routine 09/16/2023 4:24 PM CDT Adrenal mass CORTISOL, TOTAL Routine 09/16/2023 4:24 PM CDT Adrenal mass ADRENOCORTICOTROPIC HORMONE Routine 09/16/2023 4:24 PM CDT Adrenal mass URINALYSIS W/REFLEX CULTURE Routine 09/16/2023 4:24 PM CDT Renal mass COMPREHENSIVE METABOLIC PANEL Routine 09/16/2023 4:24 PM CDT Renal mass COMPLETE BLOOD COUNT W/ DIFFERENTIAL Routine 09/16/2023 4:24 PM CDT Renal mass THYROID STIMULATING HORMONE Routine 09/16/2023 4:24 PM CDT Renal mass THYROXINE Routine 09/16/2023 4:24 PM CDT Renal mass HEMOGLOBIN A1C Routine 09/16/2023 4:24 PM CDT Renal mass URINE CULTURE Routine 09/16/2023 4:24 PM CDT Renal mass CONFIRM ABORH TYPE Routine 09/16/2023 4:23 PM CDT Renal mass OSI CT ABDOMEN AND PELVIS Routine 2023 7:40 AM SAFETY PERSON Cancer OSI CT BRAIN Routine 07/17/2023 7:40 AM [facility] Cancer after 04/13/2023 Results * (ABNORMAL) .CBC (04/09/2024 11:09 AM [facility]) Only the most recent of4 resultswithin the time period is included. White Blood Cell 7.0 4.1 - 10.5 K/uL 04/09/2024 11:33 AM [facility] Red Blood Cell 5.04 4.30 - 6.04 M/uL 04/09/2024 11:33 AM [facility] Hemoglobin 12.5(L) 13.3 - 17.4 g/dL 04/09/2024 11:33 AM [facility] Hematocrit 40.1 39.5 - 51.8 % 04/09/2024 11:33 AM [facility] Mean Cell Volume 80(L) 82 - 99 fL 04/09/2024 11:33 AM [facility] Mean Cell Hemoglobin 24.8(L) 26.6 - 33.2 pg 04/09/2024 11:33 AM [facility] Mean Cell Hemoglobin Concentration 31.2 31.1 - 35.2 g/dL 04/09/2024 11:33 AM [facility] RDW-SD 42.7 37.5 - 49.7 fL 04/09/2024 11:33 AM [facility] Red Cell Diameter Width 14.8 11.6 - 15.5 % 04/09/2024 11:33 AM [facility] Platelet 268 160 - 397 K/uL 04/09/2024 11:33 AM [facility] Mean Platelet Volume 8.8(L) 9.1 - 12.6 fL 04/09/2024 11:33 AM [facility] INRBC 0.0 0.0 - 0.1 /100 WBC 04/09/2024 11:33 AM [facility] Comment: The INRBC (instrument NRBC) value reflects the enumeration of nucleated red blood cells contained in a 200uL sample of whole blood analyzed by the instrument. This value may differ from the NRBC value reported in a manual differential, which is based on a 100 cell differential. Neutrophil % 68.2 43.2 - 72.7 % 04/09/2024 11:33 AM [facility] Lymphocyte % 21.1 16.8 - 46.2 % 04/09/2024 11:33 AM [facility] Monocyte % 7.7 5.1 - 12.5 % 04/09/2024 11:33 AM [facility] Eosinophil % 2.2 0.4 - 6.3 % 04/09/2024 11:33 AM [facility] Basophil % 0.4 0.2 - 1.4 % 04/09/2024 11:33 AM [facility] IGRE % 0.4 0.1 - 1.5 % 04/09/2024 11:33 AM [facility] Comment:The IGRE% includes M etamyelocytes, Myelocytes and Promyelocytes. Neutrophil Abs 4.75 1.95 - 7.25 K/uL 04/09/2024 11:33 AM [facility] Lymphocyte Abs 1.47 1.01 - 3.24 K/uL 04/09/2024 11:33 AM [facility] Monocyte Abs 0.54 0.24 - 0.85 K/uL 04/09/2024 11:33 AM [facility] Eosinophil Abs 0.15 0.02 - 0.50 K/uL 04/09/2024 11:33 AM [facility] Basophil Abs 0.03 0.02 - 0.09 K/uL 04/09/2024 11:33 AM [facility] IG Abs 0.03 0.01 - 0.12 K/uL 04/09/2024 11:33 AM [facility] Blood Peripheral blood specimen / Unknown Venipuncture / Unknown 04/09/2024 11:09 AM [facility] 04/09/2024 11:19 AM [facility] [facility] Ceci Nicholson MD LAB BLOOD ORDERABLES Final Resu lt [facility] Unless otherwise noted, all lab tests performed by: Division of Pathology and Laboratory Medicine [address] [place] [address] * (ABNORMAL) Comprehensive Metabolic Panel (04/09/2024 11:09 AM SAFETY PERSON) Only the most recent of3 resultswithin the time period is included. Bilirubin Total 0.3 0.0 - 1.2 mg/dL 04/09/2024 12:35 PM [facility] Comment:Indocyanine Green (I CG) may cause falsely elevated bilirubin results. Total and direct bilirubin must not be measured from samples containing indocyanine green. False elevation of total bilirubin can be seen in patients with IgG concentrations above 28 g/L. eGFR 100 >=60 mL/min/1. 73 sq. m 04/09/2024 12:35 PM [facility] Comment: The eGFRcr is [...] G2 fulfill criteria for CKD. Tot Protein 7.6 6.4 - 8.3 gm/dL 04/09/2024 12:35 PM [facility] Calcium Level Total 9.4 8.2 - 10.2 mg/dL 04/09/2024 12:35 PM [facility] Alkaline Phosphatase 92 40 - 129 U/L 04/09/2024 12:35 PM [facility] Albumin Level 4.2 3.5 - 5.2 gm/dL 04/09/2024 12:35 PM [facility] AST 15 <=40 U/L 04/09/2024 12:35 PM [facility] ALT 11 <=41 U/L 04/09/2024 12:35 PM [facility] Sodium Level 139 136 - 145 mmol/L 04/09/2024 12:35 PM [facility] Potassium Level 4.6(H) 3.4 - 4.5 mmol/L 04/09/2024 12:35 PM [facility] Chloride 102 98 - 107 mmol/L 04/09/2024 12:35 PM [facility] CO2 29 22 - 29 mmol/L 04/09/2024 12:35 PM [facility] Anion Gap 8 4 - 14 mmol/L 04/09/2024 12:35 PM [facility] Creatinine 0.84 0.67 - 1.17 mg/dL 04/09/2024 12:35 PM [facility] BUN 9 6 - 23 mg/dL 04/09/2024 12:35 PM [facility] Glucose Level 170(H) 70 - 99 mg/dL 04/09/2024 12:35 PM [facility] Comment: Effective 12/14/15, the glucose reference intervals have been updated based on [place] Diabetes Association guidelines (Standards of Medical Care in Diabetes 2016. Diabetes Care 2016; 39: S13-S22). Fasting blood glucose: Normal: 70-99 mg/dL Impaired fasting glucose (increased risk for diabetes or pre-diabetes): 100-125 mg/dL Diabetes mellitus: >/=126 mg/dL Random blood glucose: Normal: 70-199 mg/dL Note: Random glucose >100 mg/dL is associated with increased risk for diabetes. Blood Peripheral blood specimen / Unknown Venipuncture / Unknown 04/09/2024 11:09 AM SAFETY PERSON 04/09/2024 11:19 AM SAFETY PERSON Ceci Nicholson MD LAB BLOOD ORDERABLES Final Resu lt [facility] Unless otherwise noted, all lab tests performed by: Division of Pathology and Laboratory Medicine [address] [place] [phone] * TSH (04/09/2024 11:09 AM SAFETY PERSON) Only the most recent of2 resultswithin the time period is included. Thyroid Stimulating Hormone 1.53 0.27 - 4.20 mcunit/mL 04/09/2024 12:23 PM SAFETY PERSON [facility] Blood Peripheral blood specimen / Unknown Venipuncture / Unknown 04/09/2024 11:09 AM SAFETY PERSON 04/09/2024 11:19 AM SAFETY PERSON Ceci Nicholson MD LAB BLOOD ORDERABLES Final Resu lt Performing Organization Address City/State/[facility] Co de Phone Number [facility] Unless otherwise noted, all lab tests performed by: Division of Pathology and Laboratory Medicine [address] [place] [phone] * (ABNORMAL) Hemoglobin A1c (04/09/2024 11:09 AM SAFETY PERSON) Only the most recent of3 resultswithin the time period is included. Hemoglobin A1c 7.0(H) 4.3 - 5.6 % 04/09/2024 12:14 PM SAFETY PERSON [facility] Blood Peripheral blood specimen / Unknown Venipuncture / Unknown 04/09/2024 11:09 AM SAFETY PERSON 04/09/2024 11:19 AM SAFETY PERSON Narrative [facility] - 04/09/2024 12:14 PM SAFETY PERSON HbA1c values >=6.5% are diagnostic of diabetes mellitus. Diagnosis should be confirmed by repeat testing. Therapeutic Action suggested: >8.0% HbA1c; Goal of therapy: <7.0% HbA1c us Ceci Nicholson MD LAB BLOOD ORDERABLES Final Resu lt [facility] Unless otherwise noted, all lab tests performed by: Division of Pathology and Laboratory Medicine [address] [place] [phone] * EKG, 12-Lead (Scheduled) (04/09/2024) Only the most recent of2 resultswithin the time period is included. Ceci Nicholson MD ECG ORDERABLES Final Result [facility] IECG * OSI CT CHEST ABDOMEN PELVIS (03/23/2024 7:37 PM SAFETY PERSON) Narrative Systemgenerated, Documentation - 04/09/2024 7:37 PM SAFETY PERSON Study acquired at another institution. For comparison only. No [facility] originated interpretation requested or available. Margoth Souza MD G OUTSIDE IMAGE ORDERABLES Fin al Result * OSI Chest (03/23/2024 7:37 PM SAFETY PERSON) Only the most recent of4 resultswithin the time period is included. Narrative Systemgenerated, Documentation - 04/09/2024 7:37 PM SAFETY PERSON Study acquired at another institution. For comparison only. No [facility] originated interpretation requested or available. Margoth Souza MD G OUTSIDE IMAGE ORDERABLES Fin al Result * OSI CT Abdomen and Pelvis (02/27/2024 7:36 PM CDT) Only the most recent of2 resultswithin the time period is included. Narrative Systemgenerated, Documentation - 04/09/2024 7:37 PM SAFETY PERSON Study acquired at another institution. For comparison only. No [facility] originated interpretation requested or available. Margoth MCKINNEY OUTSIDE IMAGE ORDERABLES Fin al Result * (ABNORMAL) Basic Metabolic Panel- Total Calcium (01/03/2024 2:59 PM CDT) Only the most recent of7 resultswithin the time period is included. eGFR 71 >=60 mL/min/1. 73 sq. m 01/03/2024 3:44 PM CDT [facility] [place] Comment: The eGFRcr is calculated with the [...] - 10.2 mg/dL 01/03/2024 3:44 PM CDT [facility] Sodium Level 139 136 - 145 mmol/L 01/03/2024 3:44 PM CDT [facility] Potassium Level 3.9 3.4 - 4.5 mmol/L 01/03/2024 3:44 PM CDT [facility] Chloride 103 98 - 107 mmol/L 01/03/2024 3:44 PM CDT [facility] CO2 28 22 - 29 mmol/L 01/03/2024 3:44 PM CDT [facility] Anion Gap 8 4 - 14 mmol/L 01/03/2024 3:44 PM CDT [facility] Creatinine 1.18(H) 0.67 - 1.17 mg/dL 01/03/2024 3:44 PM CDT [facility] BUN 15 6 - 23 mg/dL 01/03/2024 3:44 PM CDT [facility] Glucose Level 137(H) 70 - 99 mg/dL 01/03/2024 3:44 PM CDT [facility] Comment: Effective 12/14/15, the glucose reference intervals have been updated based on [place] Diabetes Association guidelines (Standards of Medical Care [...] 2:59 PM CDT 01/03/2024 3:02 PM CDT us Alicia Mcmanus APRN LAB BLOOD ORDERABLES Final Result Performing Organization Address [facility]/ZIP Co de Phone Number [facility] Unless otherwise noted, all lab tests performed by: Division of Pathology and Laboratory Medicine [address] [place] [phone] * POC Glucose Screen - Fingerstick (01/03/2024 11:19 AM CDT) Only the most recent of15 resultswithin the time period is included. Glucose Screen 70 70 - 99 mg/dL 01/03/2024 11:20 AM CDT [facility] POC Sample Type Capillary 01/03/2024 11:20 AM CDT [facility] Blood 01/03/2024 11:1 9 AM CDT 01/03/2024 11:20 AM CDT Narrative [facility] - 01/03/2024 11:20 AM CDT [...] questionable test results by core lab methodology. us Margoth Souza MD POCT ORDERABLES - DEVICE Final R esult Performing Organization Address City/[facility]/ZIP Co de Phone Number [facility] Unless otherwise noted, all lab tests performed by: Division of Pathology and Laboratory Medicine [address] [place] [phone] * Zinc Transporter 8 Ab (01/03/2024 4:22 AM CDT) Zinc T8 AB <15.0 <15.0 U/mL 01/15/2024 11:18 AM CDT [facility] Comment: ADDITIONAL INFORMATION This test has been modified from the senior litigation paralegal's instructions. Its performance characteristics were determined by [facility] in a manner consistent with CLIA requirements. This test has not been cleared or approved by the U.S. Food and Drug Administration. Test Performed by: [place] [address] Seamer Operator: Mary Jane Topete Ph.D.; CLIA# [id number] Blood Peripheral blood specimen / Unknown Venipuncture / Unknown 01/03/2024 4:22 AM CDT 01/03/2024 4:55 AM CDT Alicia Mcmanus APRN LAB BLOOD ORDERABLES Final Result [facility] * Islet Antigen 2 (IA-2) Antibody (01/03/2024 4:22 AM CDT) IA-2 Antibody 0.00 <=0.02 nmol/L 01/07/2024 12:20 AM CDT [facility] Comment: ADDITIONAL INFORMATION This test was developed and its performance characteristics determined by [facility] in a manner consistent with CLIA requirements. This test has not been cleared or approved by the U.S. Food and Drug Administration. Test Performed by: [facility] - [address] [address] Seamer Operator: Mary Jane Topete Ph.D.; CLIA# [id number] Blood Peripheral blood specimen / Unknown Venipuncture / Unknown 01/03/2024 4:22 AM CDT 01/03/2024 4:55 AM CDT Alicia Mcmanus APRN LAB BLOOD ORDERABLES Final Result Performing Organization Address [facility] de Phone Number [facility] * GREG Ab Assay (01/03/2024 4:22 AM CDT) GAD65 Ab-Bim 0.00 <=0.02 nmol/L 01/07/2024 12:01 AM CDT [facility] Comment: ADDITIONAL INFORMATION This test was developed and its performance characteristics determined by [facility] in a manner consistent with CLIA requirements. This test has not been cleared or approved by the U.S. Food and Drug Administration. Test Performed by: [place] [address] Seamer Operator: Mary Jane Topete Ph.D.; CLIA# [id number] Blood Peripheral blood specimen / Unknown Venipuncture / Unknown 01/03/2024 4:22 AM CDT 01/03/2024 4:55 AM CDT Alicia P Mcmanusemily MARIE LAB BLOOD ORDERABLES Final Result Performing Organization Address [facility] de Phone Number [facility] * Insulin Ab (01/03/2024 4:22 AM CDT) Insulin Ab-Maxwell 0.00 0.00 - 0.02 nmol/L 01/06/2024 5:14 PM CDT [facility] Comment: ADDITIONAL INFORMATION This test was developed and its performance characteristics determined by [facility] in a manner consistent with CLIA requirements. This test has not been cleared or approved by the U.S. Food and Drug Administration. Test Performed by: [facility] - [address] [address] Seamer Operator: Mary Jane Topete Ph.D.; CLIA# [id number] Blood Peripheral blood specimen / Unknown Venipuncture / Unknown 01/03/2024 4:22 AM CDT 01/03/2024 4:55 AM CDT Alicia Mcmanus APRN LAB BLOOD ORDERABLES Final Result [facility] * C Peptide (01/03/2024 4:22 AM CDT) Pathologist [facility] C-Peptide 2.12 1.10 - 4.40 ng/mL 01/03/2024 5:48 AM CDT [facility] Blood Peripheral blood specimen / Unknown Venipuncture / Unknown 01/03/2024 4:22 AM CDT 01/03/2024 4:55 AM CDT Alicia Mcmanus APRN LAB BLOOD ORDERABLES Final Result [facility] Unless otherwise noted, all lab tests performed by: Division of Pathology and Laboratory Medicine [address] [place] [phone] * (ABNORMAL) Hemogram (01/02/2024 7:20 PM CDT) White Blood Cell 13.8(H) 4.1 - 10.5 K/uL 01/02/2024 7:33 PM CDT [facility] Red Blood Cell 4.74 4.30 - 6.04 M/uL 01/02/2024 7:33 PM CDT [facility] Hemoglobin 12.2(L) 13.3 - 17.4 g/dL 01/02/2024 7:33 PM CDT [facility] Hematocrit 38.6(L) 39.5 - 51.8 % 01/02/2024 7:33 PM CDT [facility] Mean Cell Volume 81(L) 82 - 99 fL 01/02/2024 7:33 PM CDT [facility] Mean Cell Hemoglobin 25.7(L) 26.6 - 33.2 pg 01/02/2024 7:33 PM CDT [facility] Mean Cell Hemoglobin Concentration 31.6 31.1 - 35.2 g/dL 01/02/2024 7:33 PM CDT [facility] RDW-SD 39.1 37.5 - 49.7 fL 01/02/2024 7:33 PM CDT [facility] Red Cell Diameter Width 13.1 11.6 - 15.5 % 01/02/2024 7:33 PM CDT [facility] Platelet 291 160 - 397 K/uL 01/02/2024 7:33 PM CDT [facility] Mean Platelet Volume 9.7 9.1 - 12.6 fL 01/02/2024 7:33 PM CDT [facility] INRBC 0.0 0.0 - 0.1 /100 WBC 01/02/2024 7:33 PM CDT [facility] Comment: The INRBC (instrument NRBC) [...] PRICE LAB BLOOD ORDERABLES Final R esult [facility] Unless otherwise noted, all lab tests performed by: Division of Pathology and Laboratory Medicine [address] [place] [phone] * (ABNORMAL) Beta Hydroxy Quant (01/02/2024 7:20 PM CDT) Only the most recent of2 resultswithin the time period is included. Beta-Hydroxybuty rate 0.85(H) 0.02 - 0.27 mmol/L 01/02/2024 8:01 PM CDT [facility] Is patient fasting? No 01/02/2024 8:01 PM CDT [facility] Comment:A fasting specimen i s recommended and results obtained from non-fasting specimens should be interpreted with caution using reference ranges based on fasting status and in conjunction with clinical context. Blood Peripheral blood specimen / Unknown Venipuncture / Unknown 01/02/2024 7:20 PM CDT 01/02/2024 7:24 PM CDT Narrative [facility] - 01/02/2024 8:01 PM CDT Reference range based on fasting. us Alicia Mcmanus APRN LAB BLOOD ORDERABLES Final Result [facility] Unless otherwise noted, all lab tests performed by: Division of Pathology and Laboratory Medicine [address] [place] [phone] * Pathology Surgical Interpretation (01/02/2024 10:42 AM CDT) Submitted Clinical History Renal mass [N28.89] 01/22/2024 10:13 PM CDT [facility] Diagnosis A: Perinephric fat, resection: Fibroadipose tissue, negative for tumor. B: Kidney, left, hilar mass, partial nephrectomy: RENAL CELL CARCINOMA, CLEAR CELL TYPE. 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 (See comment) PXT/FHH 01/22/2024 10:13 PM CDT [facility] Comment The thrombus in the branch of the renal vein does not have any epithelial cells, which is confirmed by Cytokeratin cocktail and PAX8 immunohistochemical stains (on blocks B2 and B9). 01/22/2024 10:13 PM CDT [facility] Synoptic Checklist KIDNEY: Nephrectomy KIDNEY: [...] apparent mass lesional lymph node grossly identified. [employer] section in A1. PB B: Kidney, left, [...] in B8-B9 PB 01/22/2024 10:13 PM CDT [facility] Biomarker Block(s) Tumor: B8 Normal: A1 01/22/2024 10:13 PM CDT [facility] Disclaimer "Some tests reported here may have been developed and performance characteristics determined by [facility] Pathology and Laboratory Medicine. These tests have not been specifically cleared or approved by the U.S. Food and Drug Administration. If applicable, controls were reviewed and showed appropriate reactivity." 01/22/2024 10:13 PM CDT [facility] Tissue (Perinephric Fat) 01/02/2024 10:42 AM CDT 01/02/2024 11:03 AM CDT Tissue specimen (specimen) (Kidney, Left) 01/02/2024 10:43 AM CDT 01/02/2024 11:03 AM CDT us Margoth Souza MD LAB PATHOLOGY ORDERABLES Final R esult [facility] [address] [place] [address], [place] * (ABNORMAL) ABG+ (ABG, Na, K, Cl, Glu, Hgb, Hct, Lactate, Ion Ca) (01/02/2024 10:38 AM CDT) Only the most recent of2 resultswithin the time period is included. Sodium Arterial 140 136 - 146 mmol/L 01/02/2024 10:44 AM [facility] Potassium Arterial 3.7 3.4 - 4.5 mmol/L 01/02/2024 10:44 AM [facility] Chloride Arterial 103 98 - 106 mmol/L 01/02/2024 10:44 AM [facility] Glucose Arterial 270(H) 70 - 105 mg/dL 01/02/2024 10:44 AM [facility] Hgb Art 12.9(L) 13.5 - 17.5 g/dL 01/02/2024 10:44 AM [facility] Hematocrit Arterial 40(L) 42 - 52 % 01/02/2024 10:44 AM [facility] Lactate Arterial 1.0(H) 0.4 - 0.8 mmol/L 01/02/2024 10:44 AM [facility] Calcium Ionized Arterial 1.14(L) 1.15 - 1.29 mmol/L 01/02/2024 10:44 AM [facility] pH Arterial 7.35 7.35 - 7.45 01/02/2024 10:44 AM [facility] P CO2 Arterial 42.9 35.0 - 48.0 mmHg 01/02/2024 10:44 AM [facility] P O2 Arterial 164(H) 83 - 108 mmHg 01/02/2024 10:44 AM [facility] Bicarbonate Arterial 24 21 - 28 mmol/L 01/02/2024 10:44 AM [facility] WB Anion Gap 13 7 - 16 mmol/L 01/02/2024 10:44 AM [facility] Base Excess Arterial -2 -2 - 3 mmol/L 01/02/2024 10:44 AM [facility] Oxygen Saturation Arterial 99 95 - 99 % 01/02/2024 10:44 AM [facility] Oxygen FLOW Rate/ FiO2 01/02/2024 10:44 AM [facility] O2 Therapy 01/02/2024 10:44 AM CDT [facility] Art Kirill Test Not Applicable (Arterial Line Draw) 01/02/2024 10:44 AM CDT [facility] Blood Arterial blood specimen / Unknown Arterial Line / Unknown 01/02/2024 10:38 AM CDT 01/02/2024 10:41 AM CDT Narrative [facility] - 01/02/2024 10:44 AM CDT [...] MD LAB BLOOD ORDERABLES Final Re sult [facility] Unless otherwise noted, all lab tests performed by: Division of Pathology and Laboratory Medicine [address] [place] [phone] * Intraoperative Ultrasound - For Image Storage (without Report) (01/02/2024 7:13 AM CDT) Narrative Systemgenerated, Documentation - 01/02/2024 7:13 AM CDT This procedure requires no interpretation from the radiologist. us Margoth Souza MD IMG NON DI ORDERABLES [...] that are unexpected and potentially actionable. us Margoth Souza MD IMG CT ORDERABLES Final Result * BB Preop Exp Date (12/23/2023 8:51 AM CDT) PREOP EXP DATE 01/22/2024 12/23/2023 2:19 PM CDT [facility] Blood Peripheral blood specimen / Unknown Venipuncture / Unknown 12/23/2023 8:51 AM CDT 12/23/2023 9:00 AM CDT us Margoth Souza MD BLOOD BANK TEST ORDERABLES Final Result [facility] [address] [facility] [address] [place] [address] * Preop Updated Expiration (12/23/2023 8:51 AM CDT) PREOP STATUS 01/02/2024 11:33 PM CDT [facility] PREOP EXP DATE 01/02/2024 01/02/2024 11:33 PM CDT [facility] Blood Peripheral blood specimen / Unknown Venipuncture / Unknown 12/23/2023 8:51 AM CDT 12/23/2023 9:00 AM CDT Result Awa Souza MD BLOOD BANK TEST ORDERABLES Final Result [facility] [address] [place] [address] * (ABNORMAL) Urinalysis with Reflex Culture (12/23/2023 8:51 AM CDT) Only the most recent of2 resultswithin the time period is included. Urine Appearance Clear Clear 12/23/19 9:33 AM CDT [facility] Urine Color Straw Colorless, Straw, Yellow, Dark Yellow, Straw-Yellow 12/23/2023 9:33 AM CDT [facility] Urine Specific [place] 1.032 1.003 - 1.035 12/23/2023 9:33 AM CDT [facility] Urine pH 6.0 5.0 - 8.0 12/23/2023 9:33 AM CDT [facility] Urine Glucose >=1000(A) Negative mg/dL 12/23/2023 9:33 AM CDT [facility] Urine Ketones Negative Negative mg/dL 12/23/2023 9:33 AM CDT [facility] Urine Blood Negative Negative 12/23/2023 9:33 AM T [facility] Urine Protein 30(A) Negative mg/dL 12/23/2023 9:33 AM CDT [facility] Urine Bilirubin Negative Negative 9:33 AM CDT [facility] Urine Urobilinogen Negative Negative 12/23/2023 9:33 AM CDT [facility] Urine Nitrite Negative Negative 12/23/2023 9:33 AM CDT [facility] Urine Leukocyte Esterase Negative Negative 12/23/2023 9:33 AM CDT [facility] Urine Mucous Not Seen Not Seen, Trace /HPF 12/23/2023 9:33 AM CDT [facility] Urine Bacteria Not Seen Not Seen /HPF 12/23/2023 9:33 AM CDT [facility] Urine Squamous Epithelial Cells OCC Not Seen, OCC, Rare /HPF 12/23/2023 9:33 AM CDT [facility] Urine WBC <1 <=2 /HPF 12/23/2023 9:33 AM CDT [facility] Urine RBC 1 <=2 /HPF 12/23/2023 9:33 AM T [facility] Urine Voided urine specimen / Unknown Non-blood Collection / Unknown 12/23/2023 8:51 AM CDT 12/23/2023 9:10 AM CDT Narrative [facility] - 12/23/2023 9:33 AM CDT Some reporting parameters within the Urinalysis test have changed due to the implementation of new instrumentation in the [facility] [place], allowing greater sensitivity of measurement. Urinalysis results reported by the [facility] using existing instrumentation, as well as Urinalysis testing performed manually or by back-up methodology at the main campus, will remain relatively unchanged. New reporting parameters and units will now be reported for all campuses. Margoth Souza MD URINE ORDERABLES Final Result [facility] Unless otherwise noted, all lab tests performed by: Division of Pathology and Laboratory Medicine [address] [place] [id number] * 30-Day Pre-Op Type and Screen (12/23/2023 8:51 AM CDT) Only the most recent of2 resultswithin the time period is included. ABORh O POS 12/23/2023 8:45 AM CDT [facility] ABSC Negative 12/23/2023 8:45 AM CDT [facility] BB Criteria Met Criteria met 12/23/2023 8:45 AM CDT [facility] Historical Record Check Complete 12/23/2023 8:45 AM CDT [facility] Blood Peripheral blood specimen / Unknown Venipuncture / Unknown 12/23/2023 8:51 AM CDT 12/23/2023 9:00 AM CDT Margoth Souza MD BLOOD BANK TEST ORDERABLES Final Result [facility] Transfusion [facility] [address] [place] [address] [id number] [place] [address] * TMP Interpretation Exception PreOp Expiration (12/23/2023 8:51 AM CDT) Only the most recent of2 resultswithin the time period is included. TMP Exception 12/24/2023 10:47 AM CDT [facility] TMP Signature . 12/24/2023 10:47 AM CDT [facility] Blood Peripheral blood specimen / Unknown Venipuncture / Unknown 12/23/2023 8:51 AM CDT 12/23/2023 9:00 AM CDT Margoth Souza MD BLOOD BANK TEST ORDERABLES Final Result Performing Organization Address City/[facility]/ZIP Co de Phone Number [facility] Transfusion [facility] [address] [place] [address] [address] [place] [address] * ACTH (12/09/2023 9:45 AM CDT) Only the most recent of2 resultswithin the time period is included. ACTH 22 7 - 63 pg/mL 12/09/2023 12:19 PM CDT [facility] Blood Peripheral blood specimen / Unknown Venipuncture / Unknown 12/09/2023 9:45 AM CDT 12/09/2023 9:52 AM CDT Narrative [facility] - 12/09/2023 12:19 PM CDT Reference range established based on adult population (7 - 10am draws). No established reference values for p.m. draws. Results greater than 1826 pg/mL may not be reliable due to matrix effect with extended dilution as it exceeds the senior litigation paralegal's recommended limit. ACTH reference intervals are established for the morning hours from 7-10 am. Due to the circadian rhythm of ACTH levels in plasma, the sample collection time must be noted. Caution should be exercised when interpreting such values and done in conjunction with clinical context. us Veronica Del Castillo APRN LAB BLOOD ORDERABLES Final Result [facility] Unless otherwise noted, all lab tests performed by: Division of Pathology and Laboratory Medicine [address] [place] [id number] * DHEA Sulfate (12/09/2023 9:45 AM CDT) DHEAS-Bim 81 20 - 299 mcg/dL 12/10/2023 12:10 PM CDT [facility] Comment: Test Performed by: [facility] [place] [address] [place] [address] Seamer Operator: Mary Jane Topete Ph.D.; CLIA# [id number] Blood Peripheral blood specimen / Unknown Venipuncture / Unknown 12/09/2023 9:45 AM CDT 12/09/2023 9:56 AM CDT Veronica Del Castillo APRN LAB BLOOD ORDERABLES Final Result [facility] * Cortisol, Total (12/09/2023 9:45 AM CDT) Only the most recent of4 resultswithin the time period is included. Pathologist [facility] Cortisol 11.39 4.82 - 19.50 mcg/dL 12/09/2023 11:00 AM CDT [facility] Blood Peripheral blood specimen / Unknown Venipuncture / Unknown 12/09/2023 9:45 AM CDT 12/09/2023 9:55 AM CDT Narrative [facility] - 12/09/2023 11:00 AM CDT [...] mcg/dL Veronica Del Castillo APRN LAB BLOOD ORDERABLES Final Result [facility] Unless otherwise noted, all lab tests performed by: Division of Pathology and Laboratory Medicine [address] [place] [address] * IR CT GUIDED BIOPSY RENAL (10/03/2023 10:27 AM CDT) Anatomical Region Laterality Modality Abdomen/Pelvis, Organ (liver/spleen/kidney) Computed Tomography Narrative 10/04/2023 9:03 AM CDT Table formatting from the original result was not included. Date of Procedure: 10/03/23 Attending Physician: Kumar Comer MD Pump Installation And Servicer: None Pre Procedure Diagnosis: Renal mass Post [...] Interventional Radiology required. us Shazia Arriaza MD [facility] IR ORDERABLES Final Re sult * Pathology Biopsy Interpretation (10/03/2023 10:19 AM CDT) Submitted Clinical History Renal mass [N28.89] 10/04/2023 9:52 AM CDT [facility] Diagnosis A: Kidney, left, biopsy: RENAL CELL CARCINOMA, CLEAR CELL TYPE, ISUP/WHO NUCLEAR GRADE 1. CCG/FGT 10/04/2023 9:52 AM CDT [facility] Gross Description A: Kidney, left, left kidney: Multiple soft castillo-brown tissue cores and core fragments, less than 0.1 cm - 0.2 cm in length and up to 0.1 cm in diameter, entirely submitted in A1. ET 10/04/2023 9:52 AM CDT [facility] Biomarker Block(s) Tumor: A1 10/04/2023 9:52 AM CDT [facility] Disclaimer "Some tests reported here may have been developed and performance characteristics determined by [facility] Pathology and Laboratory Medicine. These tests have not been specifically cleared or approved by the U.S. Food and Drug Administration. If applicable, controls were reviewed and showed appropriate reactivity." 10/04/2023 9:52 AM CDT [facility] Tissue (Kidney, Left) 10/03/2023 10:19 AM CDT 10/03/2023 12:29 PM CDT us Shazia Arriaza MD LAB PATHOLOGY ORDERABLES F inal Result [facility] [address] [place] [id number], * Prothrombin Time (10/03/2023 9:27 AM CDT) Prothrombin Time 12.6 11.9 - 14.5 second(s) 10/03/2023 9:57 AM CDT [facility] International Normalization Ratio 0.98 0.87 - 1.12 10/03/2023 9:57 AM CDT [facility] Blood Peripheral blood specimen / Unknown Venipuncture / Unknown 10/03/2023 9:27 AM CDT 10/03/2023 9:28 AM CDT us Abilio Ng PA-C LAB BLOOD ORDERABLES Final Result [facility] [address] [place] [address] * Type and Screen (10/03/2023 9:27 AM CDT) ABORh O POS 10/03/2023 9:17 AM CDT [facility] ABSC Negative 10/03/2023 9:17 AM CDT [facility] Clot Expiration 10/06/2023 23:59 10/03/2023 9:17 AM CDT [facility] Historical Record Check Complete 10/03/2023 9:17 AM CDT [facility] Blood Peripheral blood specimen / Unknown Venipuncture / Unknown 10/03/2023 9:27 AM CDT 10/03/2023 9:52 AM CDT Abilio Ng PA-C BLOOD BANK TEST ORDERABLES Final Result [facility] Trans[facility] [address] [place] [address] * X-ray Chest 2 Views (09/19/2023 9:24 [...] and potentially actionable. us Shazia Arriaza MD [facility] DIAGNOSTIC IMAGING ORD ERABLES Final Result * Metanephrines Fractionated (09/16/2023 4:24 PM CDT) Normetane Free-Maxwell 0.43 <0.90 nmol/L 09/19/2023 2:59 PM CDT [facility] Metanephr Free-Maxwell <0.20 <0.50 nmol/L 09/19/2023 2:[address] [facility] Comment: ADDITIONAL INFORMATION This test was developed and its performance characteristics determined by [facility] in a manner consistent with CLIA requirements. This test has not been cleared or approved by the U.S. Food and Drug Administration. Test Performed by: [facility] [address] [place] [address] Seamer Operator: Scot Skelton M.D. Ph.D.; CLIA# [id number] Blood Peripheral blood specimen / Unknown Venipuncture / Unknown 09/16/2023 4:24 PM CDT 09/16/2023 4:41 PM CDT Shazia Arriaza MD LAB BLOOD ORDERABLES Final Result Performing Organization Address City/[facility]/ZIP Co de Phone Number [facility] * Hepatitis C Virus Antibody (09/16/2023 4:24 PM CDT) [facility] HCVAb. Non Reactive Non Reactive 09/17/2023 9:11 AM CDT [facility] Blood Peripheral blood specimen / Unknown Venipuncture / Unknown 09/16/2023 4:24 PM CDT 09/16/2023 4:41 PM CDT Narrative [facility] - 09/17/2023 9:11 AM CDT Antibody detection in the immunocompromised and immunosuppressed population may be delayed or absent entirely. Therefore serial testing, correlation with other clinical findings, and supplemental testing (if available) should be taken into consideration when interpreting the results. Shazia Arriaza MD LAB BLOOD ORDERABLES Final Result [facility] Unless otherwise noted, all lab tests performed by: Division of Pathology and Laboratory Medicine [address] [place] [id number] * Aldosterone Level (09/16/2023 4:24 PM CDT) [facility] Aldosterone-Bim 8.1 <=21 ng/dL 09/20/2023 1:02 AM CDT [facility] Comment: ADDITIONAL INFORMATION Reference range for patients 11 years and older is based on upright A.M. collection from subjects without sodium restrictions. This test was developed and its performance characteristics determined by [facility] in a manner consistent with CLIA requirements. This test has not been cleared or approved by the U.S. Food and Drug Administration. Test Performed by: [facility] [place] [address] [place] [address] Seamer Operator: Scot Skelton M.D. Ph.D.; CLIA# [id number] Blood Peripheral blood specimen / Unknown Venipuncture / Unknown 09/16/2023 4:24 PM CDT 09/16/2023 4:41 PM CDT us Shazia Arriaza MD LAB BLOOD ORDERABLES Final Result [facility] * Renin Activity (09/16/2023 4:24 PM CDT) [facility] Renin Activity-Bim 4.3 ng/mL/h 09/19 3:42 PM CDT [facility] Comment: REFERENCE VALUE (Peripheral vein specimen) Na-deplete, upright: Mean: 5.9 Range: 2.9-10.8 Na-replete, upright: Mean: 1.0 Range: < or =0.6-3.0 ADDITIONAL INFORMATION Testing performed by Liquid Chromatography-Tandem Mass Spectrometry (LC-MS/MS). This test was developed and its performance characteristics determined by [facility] in a manner consistent with CLIA requirements. This test has not been cleared or approved by the U.S. Food and Drug Administration. Test Performed by: [facility] [place] [address] [place] [address] Seamer Operator: Scot Skelton M.D. Ph.D.; CLIA# [id number] Blood Peripheral blood specimen / Unknown Venipuncture / Unknown 09/16/2023 4:24 PM CDT 09/16/2023 4:41 PM CDT us Shazia Arriaza MD LAB BLOOD ORDERABLES Final Result [facility] * Urine Culture (09/16/2023 4:24 PM CDT) Pathologist [facility] Urine Culture Normal site mirna present. Generally of low significance. Correlate with clinical data and culture history. 09/18/2023 8:31 AM CDT [facility] Urine Voided urine specimen / Unknown Non-blood Collection / Unknown 09/16/2023 4:24 PM CDT 09/16/2023 4:41 PM CDT us Shazia Arriaza MD MICROBIOLOGY - GENERAL ORD ERABLES Final Result [facility] Unless otherwise noted, all lab tests performed by: Division of Pathology and Laboratory Medicine [address] [place] [id number] * T4 (09/16/2023 4:24 PM CDT) Thyroxine 7.0 4.5 - 11.7 mcg/dL 09/16/2023 5:55 PM CDT [facility] Blood Peripheral blood specimen / Unknown Venipuncture / Unknown 09/16/2023 4:24 PM CDT 09/16/2023 4:41 PM CDT Result Awa Arriaza MD LAB BLOOD ORDERABLES Final Result [facility] Unless otherwise noted, all lab tests performed by: Division of Pathology and Laboratory Medicine [address] [place] [id number] * Confirm ABORh (09/16/2023 4:23 PM CDT) ABORh Confirm O POS 09/16/2023 4:15 PM CDT [facility] Blood Peripheral blood specimen / Unknown Venipuncture / Unknown 09/16/2023 4:23 PM CDT 09/16/2023 4:41 PM CDT us Shazia Arriaza MD BLOOD BANK TEST ORDERABLES Final Result [facility] [address] [place] [address] * OSI CT Brain (07/17/2023 7:40 AM SAFETY PERSON) Narrative Systemgenerated, Documentation - 08/08/2023 7:40 AM CDT Study acquired at another institution. For comparison only. No [facility] originated interpretation requested or available. us Margoth Souza MD IMG OUTSIDE IMAGE ORDERABLES Fin al Result after 04/13/2023 Insurance MEDICARE PART A AND B Member Subscriber Plan / Payer (Ef fective 2023-Present) Name:Zeke Mackay Member ID:[id number] Relation to Subscriber:Self Name:Zeke Mackay Subscriber ID:[id number] Payer ID:[id number] Group ID:Not on file Type:Medicare Address: [facility] [address] [place] [id number] MEDICARE PART A AND B Advance Directives * Full Code (Latest Code Status on File) Date Activated Date Inactivated Comments 01/02/2024 1:48 PM 01/03/2024 7:17 PM Care Teams [facility] Nurs[facility] Relationship Specialty Start Date End Date Margoth Souza MD [address] [place] [id number] [email or web address] PCP - General Urology 07/30/23 Eagle Zhu DO [address] [place] [id number] [email or web address] PCP - External Primary Care Provider Family Practice 04/08/24 Mary Jane Cassidy MD [address] [place] [id number] [email or web address] Consulting Physician Endocrinology 12/09/23 Barry He MD [address] [place] [phone] [email or web address] Consulting Physician Internal Medicine 12/23/23 Patience Hunt MD [address] [place] [phone] [email or web address] Consulting Physician Endocrinology 12/31/23
[2024-04-12] MEDS ORDERED: ONDANSETRON 4 MG/2 ML VIAL ONE ×2 (03:22→05:07)
[2024-04-12] MEDS ORDERED: NA CHLORIDE 0.9% 1,000 ML ONE (03:23)
[2024-04-12 03:50] LABS: Absolute Basophils 0.1 K/uL (0-0.5); Absolute Eosinophils 0.2 K/uL (0-0.5); Absolute Lymphocytes (CBC) 1.6 K/uL (0.7-4.9); Absolute Monocytes 0.5 K/uL (0.1-1.3); Absolute Neutrophil 3.2 K/uL (1.8-8.0); Basophils % 1.1 % (0-1.3); Eosinophils % 2.9 % (0-4.4); Hematocrit 34.8 % (39.6-49.0); Hemoglobin 11.4 g/dL (13.6-17.9); MCH 25.4 pg (27.0-35.0); MCHC 32.8 g/dL (32.0-36.0); MCV 77.4 fL (80-100); MPV 7.3 fL (7.6-11.3); Monocytes % 9.1 % (3.3-12.3); Neutrophils % 57.9 % (41.7-73.7); Nucleated Red Blood Cells % 0.1 % (0-0); Platelets 255 thou/uL (152-406); Red Cell Distribution Width 16.5 % (12.1-15.2)
[2024-04-12 04:10] LABS: ALT/SGPT 19 U/L (16-61); AST/SGOT 19 U/L (15-37); Albumin 3.3 g/dL (3.4-5.0); Albumin/Globulin Ratio 0.9 (1.1-1.8); Alkaline Phosphatase 79 U/L (45-117); Anion Gap 9.8 mEq/L (5.0-15.0); BUN Blood Urea Nitrogen 8 mg/dL (7-18); Bicarbonate 26 mEq/L (21-32); Bilirubin Total 0.2 mg/dL (0.2-1.0); Globulin 3.6 g/dL (2.3-3.5); Glomerular Filtration Rate 84 ml/min (=/>90); Glucose Level 192 mg/dL (74-106); Lipase 33 U/L (13-75); Potassium 3.8 mEq/L (3.5-5.1); Protein, Total 6.9 g/dL (6.4-8.2); Sodium Level 140 mEq/L (136-145); Troponin High Sensitivity 31.2 pg/mL (<58.9)
[2024-04-12 04:13] LABS: Bilirubin Direct < 0.2 mg/dL (0-0.2)
--- NOTE | 2024-04-12 04:52 | EDPHYS ---
Physician Documentation [facility] Name: Zeke Mackay Sr Age: 59 yrs Sex: Male : 1965 Arrival Date: 04/12/2024 Time: 02:55 Bed 6 Private MD: Eagle Zhu ED Physician Sylvain Leger HPI: 04/12 05:04 This 59 yrs old Male presents to ER via Ambulatory with complaints of Nausea, Cancer rt Patient. 05:11 Patient with history of stomach cancer, scheduled to have an appointment with his rt surgical team as well as to have surgery on the stomach cancer this week presents to the ED with nausea, body aches. States that he has had the symptoms previously. Nausea medicines at home has not improved symptoms. Denies other acute complaints at this time, symptoms are moderate in severity, no other aggravating or alleviating factors.. 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 - Infectious Disease History:: Denies. - Social history:: Smoking status: Patient denies any tobacco usage or history of. - Family history:: not pertinent. ROS: 05:11 Constitutional: Negative for fever, chills, and weight loss, Cardiovascular: Negative rt for chest pain, palpitations, and edema, Respiratory: Negative for shortness of breath, cough, wheezing, and pleuritic chest pain, MS/Extremity: Negative for injury and deformity, Skin: Negative for injury, rash, and discoloration, Neuro: Negative for headache, weakness, numbness, tingling, and seizure, 05:11 Abdomen/GI: Positive for nausea, Negative for abdominal pain, vomiting, Exam: 05:11 Constitutional: This is a well developed, well nourished patient who is awake, alert, rt and in no acute distress. Head/Face: Normocephalic, atraumatic. Chest/axilla: Normal chest wall appearance and motion. Nontender with no deformity. No lesions are appreciated. Cardiovascular: Regular rate and rhythm with a normal S1 and S2. No gallops, murmurs, or rubs. Normal PMI, no JVD. No pulse deficits. Respiratory: Lungs have equal breath sounds bilaterally, clear to auscultation and percussion. No rales, rhonchi or wheezes noted. No increased work of breathing, no retractions or nasal flaring. Abdomen/GI: Soft, non-tender, with normal bowel sounds. No distension or tympany. No guarding or rebound. No evidence of tenderness throughout. Skin: Warm, dry with normal turgor. Normal color with no rashes, no lesions, and no evidence of cellulitis. MS/ Extremity: Pulses equal, no cyanosis. Neurovascular intact. Full, normal range of motion. Neuro: Awake and alert, GCS 15, oriented to person, place, time, and situation. Cranial nerves II-XII grossly intact. Motor strength 5/5 in all extremities. Sensory grossly intact. Cerebellar exam normal. Normal gait. 05:11 ECG was reviewed by the Attending Physician. Vital Signs: 03:12 BP 199 / 94; Pulse 82; Resp 16; Temp 97.6; Pulse Ox 98% on R/A; Weight 81.19 kg; Height al5 6 ft. 2 in. ; Pain 0/10; 03:36 BP 186 / 90; Pulse 79; Resp 18; Pulse Ox 99% on R/A; al5 03:45 BP 193 / 90; Pulse 81; Resp 16; Pulse Ox 95% on R/A; al5 04:00 BP 183 / 94; Pulse 80; Resp 15; Pulse Ox 96% on R/A; al5 04:15 BP 201 / 88; Pulse 80; Resp 22; Pulse Ox 94% on R/A; al5 04:30 BP 176 / 96; Pulse 75; Resp 20; Pulse Ox 93% on R/A; al5 05:19 BP 205 / 99; Pulse 84; Resp 17; Pulse Ox 98% on R/A; al5 06:13 BP 204 / 96; Pulse 78; Resp 16; Pulse Ox 93% on R/A; al5 06:15 BP 190 / 94; Pulse 75; Resp 17; Pulse Ox 94% on R/A; al5 06:30 BP 192 / 93; Pulse 76; Resp 15; Pulse Ox 92% on R/A; al5 07:15 BP 190 / 93; Pulse 77; Resp 19 S; Pulse Ox 94% on R/A; aa5 03:12 Body Mass Index 22.98 (81.19 kg, 187.96 cm) al5 03:12 Pain Scale: Adult al5 MDM: 03:08 Medical Screening Exam initiated rt 06:49 Differential diagnosis: Nausea, electrolyte disturbance, gastric cancer. Data reviewed: rt vital signs, nurses notes, lab test result(s). Management of patient was discussed with the following: Autoclave Operator: Discussed with accepting physician at [facility]. I considered the following discharge prescriptions or medication management in the emergency department Medications were administered in the Emergency Department. See MAR. Test considered but Not performed: CT: Benign abdominal examination, patient wishes to forego repeat imaging, believe that this is reasonable. Will hold on CT scan. Care significantly affected by the following chronic conditions: Diabetes, Cancer. Counseling: I had a detailed discussion with the patient and/or guardian regarding the historical points, exam findings, and any diagnostic results supporting the discharge/admit diagnosis, lab results. Response to treatment: the patient's symptoms have mildly improved after treatment. 04/12 03:17 Order name: Basic Metabolic Panel; Complete Time: 04:16 rt 04/12 03:17 Order name: CBC with Diff; Complete Time: 04:16 rt 04/12 03:17 Order name: LFT's; Complete Time: 04:16 rt 04/12 03:17 Order name: Troponin HS; Complete Time: 04:16 rt 04/12 03:17 Order name: Lipase; Complete Time: 04:16 rt 04/12 03:17 Order name: EKG; Complete Time: 03:17 rt 04/12 03:17 Order name: Cardiac monitoring; Complete Time: 03:35 rt 04/12 03:17 Order name: EKG - Nurse/Tech; Complete Time: 03:35 rt 04/12 03:17 Order name: IV Saline Lock; Complete Time: 03:35 rt 04/12 03:17 Order name: Labs collected and sent; Complete Time: 03:35 rt 04/12 03:17 Order name: O2 Per Protocol; Complete Time: 03:20 rt 04/12 03:17 Order name: O2 Sat Monitoring; Complete Time: 03:20 rt EC:11 Rate is 77 beats/min. Rhythm is regular, Normal Sinus Rhythm with No ectopy. QRS Montgomery rt is Normal. ID interval is normal. QRS interval is normal. QT interval is normal. Clinical impression: NSR w/ Non-specific ST/T Changes. Administered Medications: 03:35 Drug: Ondansetron IVP 4 mg IVP once; over 2 minutes Route: IVP; Site: right upper arm; al5 04:20 Follow up: Response: No adverse reaction; Nausea is decreased al5 03:35 Drug: NS 0.9% IV 1000 ml IV at 1 bolus Per protocol; to be given as a bolus over 60 al5 minutes Route: IV; Rate: 1 bolus; Site: right upper arm; 04:47 Follow up: Response: No adverse reaction; IV Status: Completed infusion; IV Intake: al5 1000ml 05:19 Drug: Ondansetron IVP 4 mg IVP once; over 2 minutes Route: IVP; Site: right upper arm; al5 05:19 Follow up: Response: No adverse reaction; Medication administered at discharge. al5 05:32 Drug: Promethazine PO 25 mg PO once Route: PO; al5 06:43 Follow up: Response: No adverse reaction; Nausea unchanged al5 Disposition Summary: 04/12/24 06:06 Transfer Ordered Notes: Transfer Location: Other Acute Care Facility rt Reason: Higher level of care rt Condition: Stable(04/12/24 06:06) rt Problem: new(04/12/24 06:06) rt Symptoms: are unchanged(04/12/24 06:06) rt Accepting Physician: (04/12/24 07:31) aa5 Diagnosis - Intractable nausea rt - Near syncope rt Forms: - Medication Reconciliation Form rt - SBAR form rt Signatures: Dispatcher [employer] EDAllison Brown RN RN aa5 Sylvain Leger MD MD rt Kianna Roy RN RN al5 Corrections: (The following items were deleted from the chart) 03:17 03:17 BASIC METABOLIC PANEL+C.LAB.BRZ ordered. EDMS EDMS 03:17 03:17 CBC+H.LAB.BRZ ordered. EDMS EDMS 03:17 03:17 HEPATIC FUNCTION+C.LAB.BRZ ordered. EDMS EDMS 03:17 03:17 Troponin High Sensitivity+C.LAB.BRZ ordered. EDMS EDMS 03:17 03:17 LIPASE+C.LAB.BRZ ordered. EDMS EDMS 06:05 04:52 Home rt rt 06:05 04:52 new rt rt 06:05 04:52 have improved rt rt 06:05 04:52 Stable rt rt 06:05 04:52 Nausea rt rt 07:31 06:06 rt aa5
--- NOTE | 2024-04-12 04:52 | ER ---
Nurse's Notes [facility] Name: Zeke Mackay Sr Age: 59 yrs Sex: Male : 1965 Arrival Date: 04/12/2024 Time: 02:55 Bed 6 Private MD: Eagle Zhu Diagnosis: Intractable nausea;Near syncope Presentation: 04/12 03:12 Chief complaint: Patient states: c/o nausea, sweating, shakiness, and slight weakness al5 x1 hour. states it woke him up from his sleep. currently diagnosed with cancer. denies CP, SOB, vomiting, diarrhea, dizziness. Coronavirus screen: At this time, the client does not indicate any symptoms associated with coronavirus-19. Ebola Screen: No symptoms or risks identified at this time. Initial Sepsis Screen: Does the patient meet any 2 criteria? No. Patient's initial sepsis screen is negative. Does the patient have a suspected source of infection? No. Patient's initial sepsis screen is negative. Risk Assessment: Do you want to hurt yourself or someone else? Patient reports no desire to harm self or others. Onset of symptoms was April 12, 2024. 03:12 Method Of Arrival: Ambulatory al5 03:12 Acuity: RICKEY 3 al5 Triage Assessment: 03:14 General: Appears in no apparent distress. comfortable, Behavior is calm, cooperative. al5 Pain: Denies pain. EENT: No signs and/or symptoms were reported regarding the EENT system. Neuro: Level of Consciousness is awake, alert, obeys commands, Oriented to person, place, time, situation. Cardiovascular: Capillary refill < 3 seconds Patient's skin is warm and dry. Respiratory: Airway is patent Respiratory effort is even, unlabored, Respiratory pattern is regular, symmetrical. GI: Abdomen is flat, non-distended, Reports nausea. : No signs and/or symptoms were reported regarding the genitourinary system. Derm: Skin is intact, is healthy with good turgor, Skin is pink, warm \T\ dry. normal. Musculoskeletal: No signs and/or symptoms reported regarding the musculoskeletal system. 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 - Infectious Disease History:: Denies. - Social history:: Smoking status: Patient denies any tobacco usage or history of. - Family history:: not pertinent. Screenin:15 [facility] ED Fall Risk Assessment (Adult) History of falling in the last 3 months, al5 including since admission No falls in past 3 months (0 pts) Confusion or Disorientation No (0 pts) Intoxicated or Sedated No (0 pts) Impaired Gait No (0 pts) Mobility Assist Device Used No (0 pt) Altered Elimination No (0 pt) Score/Fall Risk Level 0 - 2 = Low Risk Oriented to surroundings, Maintained a safe environment, Hourly rounding (assess needs \T\ fall precautionary measures) done. Abuse screen: Denies threats or abuse. Denies injuries from another. Nutritional screening: No deficits noted. Tuberculosis screening: No symptoms or risk factors identified. Assessment: 03:15 Reassessment: see triage assessment. al5 04:47 Reassessment: Patient appears in no apparent distress at this time. Patient and/or al5 family updated on plan of care and expected duration. Pain level reassessed. Patient is alert, oriented x 3, equal unlabored respirations, skin warm/dry/pink. Patient states feeling better. Patient states symptoms have improved. 05:19 Reassessment: Patient appears in no apparent distress at this time. No changes from al5 previously documented assessment. Patient and/or family updated on plan of care and expected duration. Pain level reassessed. Patient is alert, oriented x 3, equal unlabored respirations, skin warm/dry/pink. patient denies any chest pain, shortness of breath, and dizziness/lightheadedness. patient states that he will take his BP meds when he takes home. 05:26 Reassessment: as patient was leaving, he went to use the restroom first. states once he al5 got out of the bathroom he was starting to feel nauseated and diaphoretic. measured HR and o2 with portable pulse ox, HR 90 and o2 93% on room air. notified provider. new order for nausea medicine in place. 05:41 Reassessment: Dr. Leger speaking with patient at this sitting in the chair al5 discussing plan of care since patient states he is still having new waves of nausea even after zofran being given. states to this nurse that the zofran helps, but helps for a very short window of time before a new wave of nausea comes. 06:06 Reassessment: patient states that it is okay to transfer him to [facility] for further [facility] care and evaluation. arranging transfer at this time, re-establishing IV access. patient refuses the gown due to always being cold with it on. patient was offered extra blankets, patient still refused but requested the extra blankets. extra blankets were given to the patient. 06:41 Reassessment: Patient appears in no apparent distress at this time. No changes from al5 previously documented assessment. Patient and/or family updated on plan of care and expected duration. Pain level reassessed. Patient is alert, oriented x 3, equal unlabored respirations, skin warm/dry/pink. 06:53 Reassessment: gave report to arturo pittman at [facility]. al5 07:00 Reassessment: Patient is alert, oriented x 3, equal unlabored respirations, skin aa5 warm/dry/pink. Pt provided with urinal for elimination needs. . 07:25 Reassessment: Patient is alert, oriented x 3, equal unlabored respirations, skin aa5 warm/dry/pink. Vital Signs: 03:12 BP 199 / 94; Pulse 82; Resp 16; Temp 97.6; Pulse Ox 98% on R/A; Weight 81.19 kg; Height al5 6 ft. 2 in. ; Pain 0/10; 03:36 BP 186 / 90; Pulse 79; Resp 18; Pulse Ox 99% on R/A; al5 03:45 BP 193 / 90; Pulse 81; Resp 16; Pulse Ox 95% on R/A; al5 04:00 BP 183 / 94; Pulse 80; Resp 15; Pulse Ox 96% on R/A; al5 04:15 BP 201 / 88; Pulse 80; Resp 22; Pulse Ox 94% on R/A; al5 04:30 BP 176 / 96; Pulse 75; Resp 20; Pulse Ox 93% on R/A; al5 05:19 BP 205 / 99; Pulse 84; Resp 17; Pulse Ox 98% on R/A; al5 06:13 BP 204 / 96; Pulse 78; Resp 16; Pulse Ox 93% on R/A; al5 06:15 BP 190 / 94; Pulse 75; Resp 17; Pulse Ox 94% on R/A; al5 06:30 BP 192 / 93; Pulse 76; Resp 15; Pulse Ox 92% on R/A; al5 07:15 BP 190 / 93; Pulse 77; Resp 19 S; Pulse Ox 94% on R/A; aa5 03:12 Body Mass Index 22.98 (81.19 kg, 187.96 cm) al5 03:12 Pain Scale: Adult al5 ED Course: 02:59 Patient arrived in ED. gm2 02:59 Eagle Zhu DO is Private Physician. gm2 03:00 Kianna Roy, ARTURO is Primary Nurse. al5 03:00 Sylvain Leger MD is Attending Physician. rt 03:14 Triage completed. al5 03:15 Arm band placed on right wrist. Patient placed in the treatment room, on a stretcher. al5 03:15 Patient has correct armband on for positive identification. Bed in low position. Call al5 light in reach. Side rails up X 1. Provided Education on: plan of care. 03:15 No provider procedures requiring assistance completed. al5 03:35 Basic Metabolic Panel Sent. al5 03:35 CBC with Diff Sent. al5 03:35 LFT's Sent. al5 03:35 Troponin HS Sent. al5 03:35 Lipase Sent. al5 04:51 Sylvain Leger MD is Referral Physician. rt 05:21 IV discontinued, intact, bleeding controlled, No redness/swelling at site. Pressure al5 dressing applied. 06:16 Inserted saline lock: 22 gauge in right upper arm, using aseptic technique. Flushed bm8 with 10 mL NS. 07:11 \T\[id number] transfer initiated by Gillian with [facility] from the [facility] transfer center/ \T\0653 Dr. Olguin the emergency room doctor personal injury attorney for [facility] connected with Dr. Leger/ \T\793 administrative approval given to Gillian by [facility] / patient has been accepted to [facility] Acute care [place]/ Dr. Curtis Olguin has accepted the patient in transfer/ report to be called tp [phone]. Administered Medications: 03:35 Drug: Ondansetron IVP 4 mg IVP once; over 2 minutes Route: IVP; Site: right upper arm; al5 04:20 Follow up: Response: No adverse reaction; Nausea is decreased al5 03:35 Drug: NS 0.9% IV 1000 ml IV at 1 bolus Per protocol; to be given as a bolus over 60 al5 minutes Route: IV; Rate: 1 bolus; Site: right upper arm; 04:47 Follow up: Response: No adverse reaction; IV Status: Completed infusion; IV Intake: al5 1000ml 05:19 Drug: Ondansetron IVP 4 mg IVP once; over 2 minutes Route: IVP; Site: right upper arm; al5 05:19 Follow up: Response: No adverse reaction; Medication administered at discharge. al5 05:32 Drug: Promethazine PO 25 mg PO once Route: PO; al5 06:43 Follow up: Response: No adverse reaction; Nausea unchanged al5 Medication: 03:15 VIS not applicable for this client. al5 Intake: 04:47 IV: 1000ml; Total: 1000ml. al5 Outcome: 04:52 Discharge ordered by MD. rt 06:06 ER care complete, transfer ordered by MD. rt 07:25 Transferred by ground EMS to [facility], Transfer form completed. X-rays sent aa5 w/ patient. Note: Report was given to [facility] 07:25 Condition: stable 07:25 Instructed on the need for transfer, Demonstrated understanding of instructions, 07:31 Patient left the ED. aa5 Signatures: Allison Almanzar RN RN aa5 Estela Pinto Ryan, MD MD rt Trina Reynoso gm2 Jermaine Jacques RN RN bm8 Kianna Roy RN RN al5 Corrections: (The following items were deleted from the chart) 05:21 05:19 Reassessment: Patient appears in no apparent distress at this time. No changes al5 from previously documented assessment. Patient and/or family updated on plan of care and expected duration. Pain level reassessed. Patient is alert, oriented x 3, equal unlabored respirations, skin warm/dry/pink. al5 05:26 05:18 Ondansetron IVP 4 mg IVP in right upper arm al5 al5 05:26 05:19 Response: No adverse reaction; Nausea is decreased al5 al5 06:42 06:38 Reassessment: patient states that it is okay to transfer him to [facility] for al5 further care and evaluation. arranging transfer at this time, re-establishing IV access. patient refuses the gown due to always being cold with it on. patient was offered extra blankets, patient still refused but requested the extra blankets. extra blankets were given to the patient. al5
[2024-04-12] MEDS ORDERED: PROMETHAZINE 25 MG TABLET ONE (05:31)
[2024-04-12 07:40] VITALS: TEMP 97.6
[2024-04-12 08:04] VITALS: BP 192/93; O2SAT 92
--- NOTE | 2024-04-14 10:07 | EKG ---
Test Date: 2024-04-12 Test Time: 03:28:25 Virtual Customer Assistant: NAYE MEASUREMENT RESULTS: Intervals: Rate: 77 MA: 156 QRSD: 80 QT: 412 QTc: 466 [place]: P: 63 MA: 156 QRS: 66 T: 194 INTERPRETIVE STATEMENTS: Normal sinus rhythm ST & T wave abnormality, consider inferior ischemia Prolonged QT Abnormal ECG Compared to ECG 03/23/2024 05:00:29 Prolonged QT interval now present Myocardial infarct finding no longer present ST (T wave) deviation still present Possible ischemia still present Electronically Signed On 04-14-24 10:06:29 [employer]PERVISOR [employer] RO[employer] by Lucas Huang
== END 2024-04-12 07:31 ==
LOC: ER 02:55
DX: R11.0 Nausea (principal); R55 Syncope and collapse; C16.2 Malignant neoplasm of body of stomach; E11.9 Type 2 diabetes mellitus without complications; I10 Essential (primary) hypertension; Z95.1 Presence of aortocoronary bypass graft
CPT/HCPCS: 96361; 93005; 85025; 80048; 36415; 80076; 84484; 83690; 96374; 99285; Q0169; J2405 ×2; J7030

== ENCOUNTER 2024-05-03 06:50 | Emergency (ER) | payer BC, OTHER ==
--- OUTSIDE RECORDS SUMMARY | 2024-05-03 06:55 | XMS REPORT | Clinical Summary ---
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 Active insulin glargine-lixis enatide (Soliqua 100/33) 100 unit-33 mcg/mL inpn Inject 60 Units/day under the skin daily. Active methocarbamol (ROBAXIN) 500 mg tabletIndicati ons:Renal mass Take 1 tablet (500 mg) by mouth every 8 (eight) hours as needed for muscle spasms. 20 tablet 4 1:52 PM CDT 01/03/20 24 Active aspirin 81 mg chewable tablet Chew and swallow 1 tablet (81 mg) by mouth daily. 01/29/20 24 Active metoprolol tartrate (LOPRESSOR) 25 mg tablet [...] (75 mg) by mouth daily. 01/20/20 Active prochlorperazi ne (Compazine) 10 mg tabletIndicati ons:Adenocarci noma of stomach Take 1 tablet (10 mg) by mouth every 6 (six) hours as needed for nausea or vomiting. 30 tablet 2 04/09/20 Active metoclopramide (Reglan) 5 mg tabletIndicati ons:Adenocarci noma, NOS of stomach, NOS,Nausea Take 1 tablet (5 mg) by mouth 4 (four) times a day before meals and nightly for 28 days. 56 tablet 1 04/14/20 24 Active oxyCODONE (ROXICODONE) 5 mg/5 mL solutionIndica tions:Adenocar cinoma of stomach Take 5 mL (5 mg) by mouth every 6 (six) hours as needed for moderate pain or severe pain (pain not relieved by Tylenol). 60 mL 4 3:43 PM EXECUTIVE PERSONAL ASSISTANT 04/15/20 Active Additional Information Patient not taking.Reason: No longer taking, Reported on 04/30/2024 amLODIPine (NORVASC) 5 mg tablet DAILY 02/28/20 Active metFORMIN (GLUCOPHAGE-XR ) 500 mg 24 hr tablet Take 2 tablets every day by oral route with meals for 30 days. 12/12/19 Active sucralfate (CARAFATE) 100 mg/mL suspension BEFORE MEALS AND AT BEDTIME 02/29/20 Active dapagliflozin propanediol (Farxiga) 10 mg tablet Take 1 tablet (10 mg) by mouth daily. Discontinued tadalafil (CIALIS) 5 mg tablet Take 1 tablet (5 mg) by mouth daily. 08/14/19 24 Discontinued dexAMETHasone (DECADRON) 2 mg tabletIndicati ons:Adenoma, NOS of adrenal gland, NOS <Left> Take 0.5 tablets (1 mg) by mouth once for 1 dose. Take at 11pm tonight 1 tablet 09/16/19 24 024 dexAMETHasone (DECADRON) 1 mg tabletIndicati ons:Adrenal mass Take 1 tablet (1 mg) by mouth once for 1 dose. At 11pm the night before serum cortisol will be drawn; must complete lab close to 8am the following day. 1 tablet 09/20/19 24 024 polyethylene glycol (GLYCOLAX) 17 gram/dose powderIndicati ons:Renal mass Fill powder to justice inside cap (17 g). Stir and Dissolve in any 4 to 8 ounces of beverage then drink solution daily for 30 days as directed. 510 g 01/03/20 24 024 traMADol (ULTRAM) 50 mg tabletIndicati ons:Renal mass Take 1 tablet (50 mg) by mouth every 4 (four) hours as needed for moderate pain or severe pain. 20 tablet 1:52 PM CDT 01/03/20 24 024 Discontinued(S top Taking at Discharge) Active Problems Patient Care Coordination No te Formatting of this note migh t be different from the original. The patient does *NOT* use MYCHART, please call him with any updates. He will need a printed schedule as well during his follow ups. 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 09/16/2023 Paroxysmal atrial fibrillation Gastro-esophageal reflux disease without esophag itis Hyperlipidemia Hypertension Neuropathy Renal cell carcinoma <Left side> Resolved Problems Problem Noted Date Diagnosed Date Resolved Date Dehydration 04/12/2024 04/14/2024 Mass of stomach 04/08/2024 04/14/2024 Hemoglobin A1c greater than 9% indicating poor diabetic control 01/02/2024 04/14/2024 shelter current use of systemic steroid 01/02/2024 04/14/2024 Diabetic ketoacidosis 2023 Overview (01/01/2024): Hospitalized locally 12/03/2023-12/06/2023 Encounters Date Type Department Care Team Description 04/30/2024 Orders Only [facility] [address] [place] [address], [facility] [place] [address] Mary Kay Santamaria APRN Adenocarcinoma of stomach (Primary Dx); Paroxysmal atrial fibrillation; Hyperlipidemia, not otherwise specified; Type 2 diabetes mellitus with hyperglycemia 04/27/2024 8:05 PM EXECUTIVE PERSONAL ASSISTANT Ancillary Procedure Image Library [address] [place] [address] Cancer 04/27/2024 8:00 PM EXECUTIVE PERSONAL ASSISTANT Ancillary Procedure Image Library [address] [place] [address] Cancer 04/27/2024 Orders Only [facility] [address] [place] [address], [facility] [place] [address] Donnell Van Adenocarcinoma of stomach (Primary Dx) 04/24/2024 Documentation [facility] [address] [facility], 8th [place] [address] Mary Kay Santamaria APRN 04/24/2024 Orders Only [facility] [address] [place] [address], 7th [place] [address] Mary Kay Santamaria APRN Adenocarcinoma, NOS of stomach, NOS (Primary Dx) 04/24/2024 Telephone [facility] [address] [place] [address], [facility] [place] [address] Mary Kay Santamaria APRN 04/22/2024 Lab Requisition [facility] Sincere Moralez MD Jain, Shilpa, MD 04/21/2024 Orders Only [facility] [address] [place] [address] [facility], 7th [place] [address] Gillian Gomez PA-C Adenocarcinoma, NOS of stomach, NOS (Primary Dx); Adenocarcinoma of stomach 04/16/2024 Telephone [facility] PHYSICIAN [address] [place] [address] 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, city routeman Call 04/15/2024 10:09 AM EXECUTIVE PERSONAL ASSISTANT Anesthesia Event MAIN OR [address] [place] [address] Meenakshi Crowe MD Miller, Wendy, PAXTON 04/15/2024 10:05 AM EXECUTIVE PERSONAL ASSISTANT - 04/15/2024 1:25 PM EXECUTIVE PERSONAL ASSISTANT Surgery MAIN OR [address] [place] [address] John Fong MD ROBOTIC ASSISTED SURGICAL LAPAROSCOPY 04/15/2024 7:32 AM EXECUTIVE PERSONAL ASSISTANT - 04/15/2024 11:50 PM EXECUTIVE PERSONAL ASSISTANT Hospital Encounter MAIN OR [address] [place] [address] John Fong MD Adenocarcinoma of stomach (Primary Dx) Discharge Disposition: Home 04/15/2024 Travel 04/14/2024 2:30 PM EXECUTIVE PERSONAL ASSISTANT Consult [facility] [address] [place] [address], 7th [place] [address] Gillian Gomez PA-C Badgwell, Brian, MD Adenocarcinoma, NOS of stomach, NOS (Primary Dx); Nausea 04/14/2024 Documentation [facility] [address] [place] [address], 7th Floor Elevator [place] [id number] John Fong MD 04/13/2024 3:00 PM EXECUTIVE PERSONAL ASSISTANT Consult [facility] [address] [place] [address], [facility] Floor Elevator [place] [phone] Marianela Hutchinson MD Mass of stomach (Primary Dx) 04/13/2024 2:02 PM EXECUTIVE PERSONAL ASSISTANT Anesthesia Event [facility] Management [facility] [address] [place] [address], 6th Floor Elevator [place] [phone] Curtis Moctezuma PA 04/12/2024 8:22 AM EXECUTIVE PERSONAL ASSISTANT - 04/12/2024 3:42 PM EXECUTIVE PERSONAL ASSISTANT Emergency MAIN P06B [address] [place] [address] Nghia Zhu MD Elsayem, Ahmed, MD Nausea and vomiting (Primary Dx); Gastric cancer; Pancreatitis Discharge Disposition: Left Against Medical Advice 04/12/2024 Travel 04/09/2024 8:25 PM EXECUTIVE PERSONAL ASSISTANT Ancillary Procedure Image Library [address] [place] [address] Margoth Souza MD Cancer 04/09/2024 8:20 PM EXECUTIVE PERSONAL ASSISTANT Ancillary Procedure Image Library [address] [place] [address] Margoth Souza MD Cancer 04/09/2024 8:15 PM EXECUTIVE PERSONAL ASSISTANT Ancillary Procedure Image Library [address] [place] [address] Margoth Souza MD Cancer 04/09/2024 8:10 PM EXECUTIVE PERSONAL ASSISTANT Ancillary Procedure Image Library [address] [place] [address] Margoth Souza MD Cancer 04/09/2024 8:05 PM EXECUTIVE PERSONAL ASSISTANT Ancillary Procedure Image Library [address] [place] [address] Margoth Souza MD Cancer 04/09/2024 8:00 PM EXECUTIVE PERSONAL ASSISTANT Ancillary Procedure Image Library [address] [place] [address] Margoth Souza MD Cancer 04/09/2024 10:48 AM EXECUTIVE PERSONAL ASSISTANT - 04/09/2024 11:59 PM EXECUTIVE PERSONAL ASSISTANT Hospital Encounter [facility] [address] [place] [address], [place] [address] Ceci Nicholson MD Encounter for other preprocedural examination; Atherosclerosis of coronary 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, not otherwise specified; 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 Discharge Disposition: Home 04/09/2024 10:00 AM EXECUTIVE PERSONAL ASSISTANT POEM Appointments [facility] [address] [place] [address], 6th [place] [address] Margoth Souza MD 04/09/2024 9:56 AM EXECUTIVE PERSONAL ASSISTANT - 04/09/2024 10:47 AM EXECUTIVE PERSONAL ASSISTANT Hospital Encounter [facility] [address] [place] [address], 2nd [place] [address] Ceci Nicholson MD Adenocarcinoma of stomach; Hyperlipidemia, not otherwise specified; Encounter for other preprocedural examination; Atherosclerosis of coronary 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, not otherwise specified Discharge Disposition: Home 04/09/2024 9:00 AM EXECUTIVE PERSONAL ASSISTANT Consult Perioperative Evaluation and Management [address] [place] [address], 6th [place] [address] Mary Kay Santamaria APRN Misoi, Mercy W, MD Encounter for other preprocedural examination (Primary Dx); Adenocarcinoma of stomach; Paroxysmal atrial fibrillation; Hypertension; 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; Hyperlipidemia, not otherwise specified; Current use of 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; Atherosclerosis of coronary 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, not otherwise specified 04/09/2024 Travel 04/08/2024 Prep for Surgery [facility] [address] [place] [address], [facility] [place] [address] Mary Kay Santamaria APRN Adenocarcinoma of stomach (Primary Dx); Mass of stomach 04/08/2024 Orders Only [facility] [address] [place] [address], [address] [place] [address] [place] [address] Mary Kay Santamaria APRN Adenocarcinoma of stomach (Primary Dx); Paroxysmal atrial fibrillation; Hypertension; 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; Hyperlipidemia, not otherwise specified; Current use of 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 04/08/2024 Orders Only [facility] [address] [place] [address], [address] [place] [address] [place] [address] Gillian Gomez PA-C Adenocarcinoma, NOS of stomach, NOS (Primary Dx) 04/06/2024 Orders Only [facility] [address] [facility], 7th Floor Elevator [place], [place] [phone] Roberto Poole PA 04/06/2024 Orders Only [facility] [address] [place] [address], 7th [place] [address] Roberto Poole PA Mass of stomach (Primary Dx) 04/06/2024 Orders Only [facility] [address] [place] [address], [facility] [place] [address] Roberto Poole PA Mass of stomach (Primary Dx) 04/06/2024 [facility]phone [facility] [address] [place] [address], [facility] [place] [address] Anais Meng RN 02/11/2024 Travel 02/10/2024 3:30 PM CDT Telemedicine [facility] [address], [facility] [place] [place] [address] Margoth Souza MD Renal mass (Primary Dx) 01/02/2024 7:15 AM CDT Ancillary Procedure MAIN OR [address] [place] [address] Margoth Souza MD 01/02/2024 7:00 AM CDT - 01/02/2024 11:40 AM CDT Surgery MAIN OR [address] [place] [address] Margoth Souza MD ROBOTIC ASSISTED PARTIAL NEPHRECTOMY 01/02/2024 6:58 AM CDT Anesthesia Event MAIN OR [address] [place] [address] Alonzo Liu MD Majekodumi, Jessy, CRNA 01/02/2024 5:04 AM CDT - 01/03/2024 5:05 PM CDT Hospital Encounter MAIN P09B [address] [place] [address] Margoth Souza MD Renal mass (Primary Dx) Discharge Disposition: Home 01/02/2024 Travel 12/31/2023 1:04 PM CDT - 12/31/2023 11:59 PM CDT Hospital Encounter Main CT IMAGING [facility], 3rd [place] [address] Margoth Souza MD Renal mass Discharge Disposition: Home 12/31/2023 8:00 AM CDT Consult [facility] [address] [place] [address], [address] [place] [address] [place] [address] Nakia Kirby APRN Khan, Sonya, MD Type 2 diabetes mellitus with hyperglycemia [E11.65] (Primary Dx); Pre-surgery evaluation 12/30/2023 9:30 AM CDT Office Visit [facility] [address] [place] [address], 7th [place] [address] Margoth Souza MD Renal mass 12/30/2023 Travel 12/30/2023 Telephone End[facility] Center [address] [place] [address], [address] [place], [place] [address]ator [place] [address] Winnie Archibald, RN Appointment (Cannot get internet-phone broke) 12/30/2023 Orders Only [facility] [address] [place] [address], 7th [place] [address] Roberto Poole PA Renal mass (Primary Dx) 12/29/2023 Orders Only [facility] [address] [place] [address], [address] [place], [place] [address]ator [place] [address] Veronica Del Castillo APRN 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); Endocrine/metabolic screening; Renal cell carcinoma <Left side> 12/25/2023 8:36 AM CDT Anesthesia Event [facility] [address] [place] [address] Lien Antonio, RN 12/23/2023 10:30 AM CDT Consult Perioperative Evaluation and Management [address] [place] [address] Margoth Souza MD Oh, Jeong, MD Encounter for other preprocedural examination (Primary Dx); Renal mass; Hyperlipidemia, not otherwise specified 12/23/2023 9:00 AM CDT POEM Appointments [facility] [address] [place] [address], 6th [place] [address] Margoth Souza MD Pre-surgery evaluation (Primary Dx) 12/23/2023 8:45 AM CDT - 12/23/2023 11:59 PM CDT Hospital Encounter [facility] [address] [place] [address] Margoth Souza MD Renal mass Discharge Disposition: Home 12/23/2023 Travel 12/09/2023 9:33 AM CDT - 12/09/2023 11:59 PM CDT Hospital Encounter [facility] [address] [place] [address] Veronica Del Castillo APRN 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; Endocrine/metabolic screening Discharge Disposition: Home 12/09/2023 8:30 AM CDT Consult [facility] Center [address] [place] [address], 6th [place] [address] Mary Jane Cassidy MD 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); Endocrine/metabolic screening; Renal cell carcinoma <Left side> 12/09/2023 Travel 10/23/2023 Orders Only [facility] [address] [place] [address], 7th [place] [address] Roberto Poole PA Renal mass (Primary Dx); Adrenal mass 10/03/2023 9:30 AM CDT - 10/03/2023 11:59 PM CDT Hospital Encounter Interventional Radiology [address] [place] [address], 4th [place] [address] Shazia Arriaza MD McRae, Stephen, MD Renal mass Discharge Disposition: Home 10/03/2023 8:30 AM CDT - 10/03/2023 9:29 AM CDT Hospital Encounter [facility] [address] [place] [address] Margoth Souza MD Renal mass Discharge Disposition: Home 10/03/2023 Travel 10/02/2023 8:24 AM CDT - 10/02/2023 11:59 PM CDT Hospital Encounter Interventional Radiology [address] [place] [address], 4th [place] [address] Margoth Souza MD Ho, Thanh-Trang D, PA-C Encounter for other preprocedural examination (Primary Dx); Renal mass; 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 Discharge Disposition: Home 10/02/2023 Travel 09/24/2023 7:46 AM CDT - 09/24/2023 11:59 PM CDT Hospital Encounter [facility] [address] [place] [address] Roberto Poole PA Adrenal mass Discharge Disposition: Home 09/20/2023 Orders Only [facility] [address] [place] [address], [facility] [place] [address] Roberto Poole PA Adrenal mass (Primary Dx) 09/19/2023 11:45 AM CDT Ancillary Procedure X-Ray Outpatient Center [address] [place] [address], [facility] [place] [address] Shazia Arriaza MD Renal mass 09/19/2023 9:20 AM CDT - 09/19/2023 11:59 PM CDT Hospital Encounter [facility] [address] [place] [address] Shazia Arriaza MD Adenoma, NOS of adrenal gland, NOS <Left> Discharge Disposition: Home 09/19/2023 Orders Only Interventional Radiology [address] [place] [address], 4th [place] [address] Abilio Ng PA-C Renal mass (Primary Dx) 09/19/2023 Travel 09/19/2023 Telephone MD [facility] [address] [place] [address] Barbara Rees MA 09/16/2023 4:00 PM CDT - 09/16/2023 11:59 PM CDT Hospital Encounter [facility] [address] [place] [address] Shazia Arriaza MD Renal mass; Adrenal mass Discharge Disposition: Home 09/16/2023 2:00 PM CDT Office Visit [facility] [address] [place] [address], 7th [place] [address] Margoth Souza MD Renal mass (Primary Dx); Adrenal mass; Adenoma, NOS of adrenal gland, NOS <Left>; 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 09/16/2023 12:30 PM CDT NPR MDA PATIENT ACCESS 09/16/2023 Travel 08/08/2023 8:00 PM CDT Ancillary Procedure Image Library [address] [place] [address] Margoth Souza MD Cancer 08/08/2023 6:40 AM CDT Ancillary Procedure Image Library [address] [place] [address] Margoth Souza MD Cancer after 05/04/2023 Surgical History Surgery Date Site/Laterality Comments TOE AMPUTATION x2, 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, 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 APPENDECTOMY 05/20/1973 - 05/19/1974 Open WRIST SURGERY Left HAND SURGERY Right HIP ARTHRODESIS W/ ILIAC CREST BONE GRAFT Bilateral For hand surgeries CERVICAL SPINE SURGERY C3-6 fusion, x2 SC LAPAROSCOPY SURG PARTIAL NEPHRECTOMY 01/02/2024 Abdomen/Left Procedure: ROBOTIC ASSISTED PARTIAL NEPHRECTOMY; Surgeon: Margoth Souza MD; Location: MAIN OR; Service: UROLOGY CHG ULTRASONIC GUIDANCE INTRAOPERATIVE 01/02/2024 Left Procedure: INTROPERATIVE ULTRASOUND - PERFORMED BY SURGEON; Surgeon: Margoth Souza MD; Location: MAIN OR; Service: UROLOGY CORONARY ARTERY BYPASS GRAFT 01/07/2024 SC LAPS ABD PRTM&OMENTUM DX W/WO SPEC BR/WA SPX 04/15/2024 Abdomen/N/A Procedure: ROBOTIC ASSISTED SURGICAL LAPAROSCOPY; Surgeon: John Fong MD; Location: MAIN OR; Service: SURG ONC - GASTRIC/HIPEC Medical devices from this surgery are in the Medical Devices section. CHG FLUORO CENTRAL VENOUS ACCESS DEV PLACEMENT 04/15/2024 Neck/N/A Procedure: FLUORO GUIDANCE FOR CENTRAL VENOUS ACCESS DEVICE PLACEMENT, REPLACEMENT, OR REMOVAL; Surgeon: John Fong MD; Location: MAIN OR; Service: SURG ONC - GASTRIC/HIPEC Medical devices from this surgery are in the Medical Devices section. CHG US VASC ACCESS SITS VSL PATENCY NDL ENTRY 04/15/2024 N/A Procedure: US GUIDANCE WITH EVAL OF POTENTIAL ACCESS SITES, REALTIME US VISUALIZATION OF VASC NEEDLE ENTRY; Surgeon: John Fong MD; Location: MAIN OR; Service: SURG ONC - GASTRIC/HIPEC Medical devices from this surgery are in the Medical Devices section. SC INSJ TUNNELED CTR VAD W/SUBQ PORT AGE 5 YR/> 04/15/2024 Neck/N/A Procedure: PORT-A-CATH PLACEMENT; Surgeon: John Fong MD; Location: MAIN OR; Service: SURG ONC - GASTRIC/HIPEC Medical devices from this surgery are in the Medical Devices section. Medical History Medical History Date Comments Neuropathy Hyperlipidemia Hypertension Gastro-esophageal reflux dis ease without esophagitis Osteomyelitis Renal cell carcinoma <Left side> Diabetic ketoacidosis [facility] 12/03/2023-12/06/2023 Type 2 diabetes mellitus wit h hyperglycemia 01/02/2024 Disorder of coronary artery Diabetes mellitus Social History Tobacco Use Types Packs/Day Years Used Date Smoking Tobacco: Never Smokeless Tobacco: Never Alcohol Use Standard Drinks/Week Comments Not Currently 0 (1 standard drink = 0.6 oz pur e alcohol) Sex and Gender Information Value Date Recorded Sex Assigned at Not on file Legal Sex Male 11:38 AM EXECUTIVE PERSONAL ASSISTANT Gender Identity Not on file Sexual Orientation Not on file Occupation Industry Job Start Date Job End Date retired from [employer] Not on file N ot on file Not on file Travel History Travel Start Travel End [place] 04/12/2024 04/12/2024 Obstetrics History Last Filed Vital Signs Vital Sign [place] Time Taken Comments Blood Pressure 163/80 04/15/2024 3:15 PM EXECUTIVE PERSONAL ASSISTANT Monitoring Pulse 68 04/15/2024 3:15 PM EXECUTIVE PERSONAL ASSISTANT Temperature 36.6 C (97.8 F) 04/15/2024 3 :15 PM EXECUTIVE PERSONAL ASSISTANT Respiratory Rate 17 04/15/2024 3:15 PM EXECUTIVE PERSONAL ASSISTANT Oxygen Saturation 98% 04/15/2024 3:1 5 PM EXECUTIVE PERSONAL ASSISTANT Inhaled Oxygen Concentration - - Weight 82.5 kg (181 lb 14.1 oz) 9:19 AM EXECUTIVE PERSONAL ASSISTANT Height 182.5 cm (5' 11.85") 04/12/2024 2:40 PM EXECUTIVE PERSONAL ASSISTANT Body Mass Index 24.77 04/12/2024 2:40 PM EXECUTIVE PERSONAL ASSISTANT Plan of Treatment Upcoming Encounters Date Type Department Care Team (Latest Contact Info) Description 05/04/2024 11:15 AM EXECUTIVE PERSONAL ASSISTANT Appointment Diagnostic [facility] [address] [place] [address], [place] [address] Gillian Gomez PA-C [address] [place] [id number] [email or web address] 05/04/2024 12:20 PM EXECUTIVE PERSONAL ASSISTANT Follow-Up [facility] [address] [place] [address], 7th [place] [address] Marianela Hutchinson MD [address] [place] [phone] [email or web address] 05/04/[email or web address] 1:45 PM EXECUTIVE PERSONAL ASSISTANT Appointment Ambulatory Treatment Center - Main Building [address] [place] [address], 2nd Floor, [place] [address] Gillian Gomez PA-C [address] [place] [id number] [email or web address] 05/19/2024 12:00 PM EXECUTIVE PERSONAL ASSISTANT Hospital Encounter Endoscopy Center [address] [place] [address], 5th [place] [address] Brandon Alcala MD [address] [place] [id number] [email or web address] 05/19/2024 12:00 PM EXECUTIVE PERSONAL ASSISTANT - 05/19/2024 1:10 PM EXECUTIVE PERSONAL ASSISTANT Surgery [facility] [address] [facility] Main [facility], 5th [place] [address] Brandon Alcala MD [address] [place] [address] [email or web address] UPPER GASTROINTESTINAL ENDOSCOPY OF ESOPHAGUS, STOMACH, OR DUODENUM ANDJ ADJACENT STRUCTURES, WITH ENDOSCOPIC ULTRASOUND EXAMINATION 06/11/2024 2:00 PM EXECUTIVE PERSONAL ASSISTANT Telemedicine [facility] - Surgical Oncology [facility]5 [facility] Main [facility], 7th [place] [address] John Fong MD [address] [place] [address] [email or web address] 07/15/2024 10:15 AM EXECUTIVE PERSONAL ASSISTANT Appointment Diagnostic [facility] [address] [place] [address] Main [facility], [place] [address] Mary Kay Santamaria APRN [address] [place] [address] [email or web address] 07/15/2024 11:15 AM EXECUTIVE PERSONAL ASSISTANT Appointment Cardiopulmonary Center [address] [place] [address] Main [facility], 6th [place] [address] Mary Kay Santamaria APRN [address] [place] [address] [email or web address] 07/15/2024 12:15 PM EXECUTIVE PERSONAL ASSISTANT Appointment Main CT IMAGING [address] [facility] Main [facility], 3rd [place] [address] Mary Kay Santamaria APRN [address] [place] [address] [email or web address] 07/16/2024 9:30 AM EXECUTIVE PERSONAL ASSISTANT Office Visit [facility] - Surgical Oncology [address] [place] [address], 7th [place] [address] John Fong MD [facility]5 [place] [address] [email or web address] 07/16/2024 10:00 AM EXECUTIVE PERSONAL ASSISTANT Nutrition Clinical Nutrition For your Nutrition appointment location directions please call: Mary Kay Santamaria, BAKERY MACHINE MECHANIC SUPERVISOR [address] [place] [phone] [email or web address] Tania Ng, SCOTT [facility]5 [facility] [address] [place] [address] [email or web address] 07/24/2024 7:00 AM EXECUTIVE PERSONAL ASSISTANT Hospital Encounter MAIN OR [facility]5 [place] [address] John Fong MD [address] [place] [phone] [email or web address] 07/24/2024 7:00 AM EXECUTIVE PERSONAL ASSISTANT - 07/24/2024 2:05 PM EXECUTIVE PERSONAL ASSISTANT Surgery MAIN OR [facility]5 [place] [address] John Fong MD [address] [place] [address] [email or web address] ROBOTIC ASSISTED [place] [id number] 02/05/2025 10:45 AM CDT Lab [facility] [address] [facility], 7th [place] [address] Margoth Souza MD [address] [place] [phone] [email or web address] 02/05/2025 11:15 AM CDT Ancillary Procedure X-[facility] Outpatient Center [address] [place] [address] Margoth Souza MD [address] [place] [phone] [email or web address] 02/05/2025 12:20 PM CDT Ancillary Procedure CT Imaging [address] [place] [address] Margoth Souza MD [address] [place] [phone] [email or web address] 02/08/2025 2:30 PM CDT Telemedicine Genitourinary Cancer Center [address] [place] [address], [address] [place] [address] Margoth Souza MD [address] [place] [phone] [email or web address] Scheduled Procedures Name Priority Associated Diagnoses Date/Ti me UPPER GASTROINTESTINAL ENDOSCOPY OF ESOPHAGUS, STOMACH, OR DUODENUM ANDJ ADJACENT STRUCTURES, WITH ENDOSCOPIC ULTRASOUND EXAMINATION Adenocarcinoma of stomach 05/19/2024 12:00 PM EXECUTIVE PERSONAL ASSISTANT ROBOTIC ASSISTED [place] [id number] Adenocarcinoma of stomach 07/24/2024 7:00 AM EXECUTIVE PERSONAL ASSISTANT PARTIAL DISTAL GASTRECTOMY WITH FELIZ-EN-Y RECONSTRUCTION Adenocarcinoma of stomach 07/24/2024 7:00 AM EXECUTIVE PERSONAL ASSISTANT Health Maintenance Due Date Last Done Comments COVID-19 Vaccine (#1) 01/09/1969 Pneumococcal Vaccine: Pediat rics (0 to 5 Years) and At-Risk Patients (6 to 64 Years) (1 of 2 - PCV) 01/09/1970 01/09/1975 Influenza Vaccine (#1) 2024 08/04/2018 Medical Devices Implanted Type Area Prop Making Supervisor Device Identifier Shelf Expiration Date Model / Serial / Lot Slade Muhammad 6fr - [id number] Implanted:Qty: 1 on 04/15/2024 by John Fong MD at [facility] Implant Right: Neck BARD [employer]ESS SYSTEMS 12/17/2024 [id number] / / [id number] Procedures Procedure Name Priority Date/Time Associated Diagnosis Comments VERIFY CATHETER TIP PLACEMENT Routine 04/15/2024 3:50 PM EXECUTIVE PERSONAL ASSISTANT Adenocarcinoma of stomach POC GLUCOSE SCREEN Routine 04/15/2024 3:21 PM EXECUTIVE PERSONAL ASSISTANT XR CHEST 1 VW PORTABLE Routine 2:45 PM EXECUTIVE PERSONAL ASSISTANT POC GLUCOSE SCREEN Routine 04/15/2024 1:05 PM EXECUTIVE PERSONAL ASSISTANT POC GLUCOSE SCREEN Routine 04/15/2024 12:52 PM EXECUTIVE PERSONAL ASSISTANT CYTOLOGY NON-HEATING ELEMENT BUILDER INTERPRETATION Routine 04/15/2024 12:33 PM EXECUTIVE PERSONAL ASSISTANT Adenocarcinoma of stomach PATHOLOGY SURGICAL INTERPRETATION Routine 04/15/2024 12:13 PM EXECUTIVE PERSONAL ASSISTANT Adenocarcinoma of stomach FL CENTRAL VENOUS PLACE EXCHANGE Routine 04/15/2024 11:40 AM EXECUTIVE PERSONAL ASSISTANT Adenocarcinoma of stomach POC GLUCOSE SCREEN Routine 04/15/2024 9:22 AM EXECUTIVE PERSONAL ASSISTANT SC INSJ TUNNELED CTR VAD W/SUBQ PORT AGE 5 YR/> 04/15/2024 9:16 AM EXECUTIVE PERSONAL ASSISTANT Adenocarcinoma of stomach Special Needs MTL@0800 CHG US VASC ACCESS SITS VSL PATENCY NDL ENTRY 04/15/2024 9:16 AM EXECUTIVE PERSONAL ASSISTANT Adenocarcinoma of stomach Special Needs MTL@0800 CHG FLUORO CENTRAL VENOUS ACCESS DEV PLACEMENT 04/15/2024 9:16 AM EXECUTIVE PERSONAL ASSISTANT Adenocarcinoma of stomach Special Needs MTL@0800 SC LAPS ABD PRTM&OMENTUM DX W/WO SPEC BR/WA SPX 04/15/2024 9:16 AM EXECUTIVE PERSONAL ASSISTANT Adenocarcinoma of stomach Special Needs MTL@0800 CT ABDOMEN PELVIS W CONTRAST Routine 04/12/2024 11:18 AM EXECUTIVE PERSONAL ASSISTANT .CBC Routine 04/12/2024 9:04 AM EXECUTIVE PERSONAL ASSISTANT LIPASE LEVEL Routine 04/12/2024 9:04 AM EXECUTIVE PERSONAL ASSISTANT AMYLASE LEVEL Routine 04/12/2024 9:04 AM EXECUTIVE PERSONAL ASSISTANT LACTATE DEHYDROGENASE Routine 04/12/2024 9:04 AM EXECUTIVE PERSONAL ASSISTANT FRACTIONATED BILIRUBIN Routine 9:04 AM EXECUTIVE PERSONAL ASSISTANT PHOSPHORUS LEVEL Routine 04/12/2024 9:04 AM EXECUTIVE PERSONAL ASSISTANT MAGNESIUM LEVEL Routine 04/12/2024 9:04 AM EXECUTIVE PERSONAL ASSISTANT COMPREHENSIVE METABOLIC PANEL Routine 04/12/2024 9:04 AM EXECUTIVE PERSONAL ASSISTANT COMPLETE BLOOD COUNT W/ DIFFERENTIAL Routine 04/12/2024 9:04 AM EXECUTIVE PERSONAL ASSISTANT .CBC Routine 04/09/2024 11:09 AM EXECUTIVE PERSONAL ASSISTANT Encounter for other preprocedural examination Atherosclerosis of coronary 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, not otherwise specified THYROID STIMULATING HORMONE Routine 04/09/2024 11:09 AM EXECUTIVE PERSONAL ASSISTANT Encounter for other preprocedural examination Atherosclerosis of coronary 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, not otherwise specified HEMOGLOBIN A1C Routine 04/09/2024 11:09 AM EXECUTIVE PERSONAL ASSISTANT 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 Encounter for other preprocedural examination COMPREHENSIVE METABOLIC PANEL Routine 04/09/2024 11:09 AM EXECUTIVE PERSONAL ASSISTANT Encounter for other preprocedural examination Atherosclerosis of coronary 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, not otherwise specified COMPLETE BLOOD COUNT W/ DIFFERENTIAL Routine 04/09/2024 11:09 AM EXECUTIVE PERSONAL ASSISTANT Encounter for other preprocedural examination Atherosclerosis of coronary 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, not otherwise specified EKG, 12-LEAD (SCHEDULED) Routine 04/09/2024 Adenocarcinoma of stomach Hyperlipidemia, not otherwise specified Encounter for other preprocedural examination Atherosclerosis of coronary 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, not otherwise specified PATHOLOGY OUTSIDE INTERPRETATION Routine 04/02/[address] ABDOMEN AND PELVIS Routine 2023 8:21 AM EXECUTIVE PERSONAL ASSISTANT Cancer OSI CHEST Routine 03/23/2024 7:37 PM EXECUTIVE PERSONAL ASSISTANT Cancer OSI CT CHEST ABDOMEN PELVIS Routine 03/23/2024 7:37 PM EXECUTIVE PERSONAL ASSISTANT Cancer OSI CHEST Routine 03/23/2024 7:37 PM EXECUTIVE PERSONAL ASSISTANT Cancer OSI CT CHEST Routine 03/22/2024 8:21 AM EXECUTIVE PERSONAL ASSISTANT Cancer OSI CT ABDOMEN AND PELVIS Routine [...] CDT ARTERIAL BLOOD GAS PLUS STAT 01/02/20 24 8:42 AM CDT POC GLUCOSE SCREEN Routine 01/02/2024 8:18 AM CDT INTRAOPERATIVE US STAT 01/02/2024 7:13 AM CDT CHG ULTRASONIC GUIDANCE INTRAOPERATIVE 01/02/2024 6:08 AM CDT Renal mass Special Needs [email or web address]:Please collect and send tissue to pathology window with appropriate label. SC LAPAROSCOPY SURG PARTIAL NEPHRECTOMY 01/02/2024 6:08 AM CDT Renal mass Special Needs [email or web address]:Please collect and send tissue to pathology window [...] ABDOMEN AND PELVIS Routine 2023 7:40 AM EXECUTIVE PERSONAL ASSISTANT Cancer OSI CT BRAIN Routine 07/17/2023 7:40 AM EXECUTIVE PERSONAL ASSISTANT Cancer after 05/04/2023 Results * Tip Verification Central Vascular Access Device (04/15/2024 3:50 PM EXECUTIVE PERSONAL ASSISTANT) Narrative John Fong MD - 04/15/2024 3:50 PM EXECUTIVE PERSONAL ASSISTANT John Fong MD 04/15/2024 3:50 PM Central Vascular Access Device Tip Verification Performed by: John Fong MD Authorized by: John Fong MD CVAD Properties Date device placed: 04/15/2024 Device placement location: [facility] Catheter Type: Implanted venous port Catheter lumen: Single lumen Vein location: Internal jugular vein Laterality: Right Tip in good position and cleared for infusion us John Fong MD IV THERAPY ORDERABLES Final Re sult * (ABNORMAL) POC Glucose Screen - Fingerstick (04/15/2024 3:21 PM EXECUTIVE PERSONAL ASSISTANT) Only the most recent of19 resultswithin the time period is included. Glucose Screen 172(H) 70 - 99 mg/dL 04/15/2024 3:23 PM EXECUTIVE PERSONAL ASSISTANT [facility] POC Sample Type Capillary 04/15/2024 3:23 PM EXECUTIVE PERSONAL ASSISTANT [facility] Blood 04/15/2024 3:21 PM EXECUTIVE PERSONAL ASSISTANT 04/15/2024 3:23 PM EXECUTIVE PERSONAL ASSISTANT Narrative [facility] - 04/15/2024 3:23 PM EXECUTIVE PERSONAL ASSISTANT Capillary blood samples, e.g. obtained by fingerstick, [...] test results by core lab methodology. us John Fong MD POCT ORDERABLES - DEVICE Final Result [facility] Unless otherwise noted, all lab tests performed by: Division of Pathology and Laboratory Medicine [address] [place] [id number] * XR Chest 1 View Portable (04/15/2024 2:45 PM EXECUTIVE PERSONAL ASSISTANT) Anatomical Region Laterality Modality Chest Digital Radiogra phy 04/15/2024 2:50 PM EXECUTIVE PERSONAL ASSISTANT Impressions 04/15/2024 2:53 PM EXECUTIVE PERSONAL ASSISTANT 1. Right infusion port catheter terminates over the lower superior vena cava without evidence of complication. 2. Pneumoperitoneum is secondary to robotic diagnostic laparoscopy performed 04/15/2024. ACTIONABLE ITEMS/RECOMMENDATIONS*: None. *An Actionable Finding is a finding that may be unrelated to the original reason for imaging but potentially actionable, meaning further investigation may be necessary. The Actionable Findings Vigilance Unit (AFVU) assists medical providers with responding to additional radiologic findings that are unexpected and potentially actionable. Narrative 04/15/2024 2:53 PM EXECUTIVE PERSONAL ASSISTANT FULL RESULT: Examination: XR CHEST 1 VW PORTABLE on 04/15/2024 2:45 PM. Clinical History: Adenocarcinoma of stomach Indication: Check Central Line placement Comparison: [facility] Chest portable 03/23/2024 at 0537 hours Technique: Frontal radiograph of the chest Findings: Support Apparatus: An infusion port catheter has been placed with reservoir over the right upper hemithorax and catheter tip projecting over the lower superior vena cava. Lungs/Pleura/Mediastinum: Positioning is lordotic. The lungs are adequately inflated without acute consolidation. No pleural effusion or pneumothorax. Heart size and aortic contour are stable. Other: There is pneumoperitoneum underneath the hemidiaphragms, right greater than left. Median sternotomy cerclage wires are intact and aligned. Procedure Note de Yohana Jordan MD - 04/15/2024 FULL RESULT: Examination: XR CHEST 1 VW PORTABLE on 04/15/2024 2:45 PM. Clinical History: Adenocarcinoma of stomach Indication: Check Central Line placement Comparison: [facility] Chest portable 03/23/2024 at 0537 hours Technique: Frontal radiograph of the chest Findings: Support Apparatus: An infusion port catheter has been placed withreservoir over the right upper hemithorax and catheter tip projecting overthe lower superior vena cava. Lungs/Pleura/Mediastinum: Positioning is lordotic. The lungs areadequately inflated without acute consolidation. No pleural effusion orpneumothorax. Heart size and aortic contour are stable. Other: There is pneumoperitoneum underneath the hemidiaphragms, rightgreater than left. Median sternotomy cerclage wires are intact andaligned. IMPRESSION: 1. Right infusion port catheter terminates over the lower superior venacava without evidence of complication. 2. Pneumoperitoneum is secondary to robotic diagnostic laparoscopyperformed 04/15/2024. ACTIONABLE ITEMS/RECOMMENDATIONS*: None. *An Actionable Finding is a finding that may be unrelated to the originalreason for imaging but potentially actionable, meaning furtherinvestigation may be necessary. The Actionable Findings Vigilance Unit(AFVU) assists medical providers with responding to additional radiologicfindings that are unexpected and potentially actionable. us John Fong MD IMG DIAGNOSTIC IMAGING ORDERAB LES Final Result * Cytology Non-Social Media Sr Strategy Manager Interpretation (04/15/2024 12:33 PM EXECUTIVE PERSONAL ASSISTANT) Gross Description 4 Pap Stain Slides 750 ml. clear yellow fluid Specimen concentrated by cytocentrifugation technique 4 4:07 PM EXECUTIVE PERSONAL ASSISTANT [facility] Major Classification [facility]/benign 4 4:07 PM EXECUTIVE PERSONAL ASSISTANT [facility] Diagnosis Peritoneal washing: No metastatic carcinoma identified Reactive mesothelial cells and histiocytes 4 4:07 PM EXECUTIVE PERSONAL ASSISTANT [facility] Retained/Biomark er Testing SR:4S 4 4:07 PM EXECUTIVE PERSONAL ASSISTANT [facility] Informational Points Some tests reported here may have been developed and performance characteristics determined by [facility] Pathology and Laboratory Medicine. These tests have not been specifically cleared or approved by the U.S. Food and Drug Administration. 4 4:07 PM EXECUTIVE PERSONAL ASSISTANT [facility] Washing (Peritoneal Washing) 04/15/2024 12:33 PM EXECUTIVE PERSONAL ASSISTANT 04/15/2024 1:10 PM EXECUTIVE PERSONAL ASSISTANT John Fong MD LAB CYTOLOGY ORDERABLES Final Result [facility] [address] [place] [id number], * Pathology Surgical Interpretation (04/15/2024 12:13 PM EXECUTIVE PERSONAL ASSISTANT) Only the most recent of2 resultswithin the time period is included. Submitted Clinical History Adenocarcinoma of stomach [C16.9] 04/20/2024 8:13 PM EXECUTIVE PERSONAL ASSISTANT [facility] Diagnosis A. Falciform ligament, resection: Fibroadipose tissue, no tumor present 04/20/2024 8:13 PM EXECUTIVE PERSONAL ASSISTANT [facility] Gross Description A: Falciform ligament, falciorm ligament biopsy....or 16: Consists of a fragment of castillo-yellow, lobulated fat (0.8 x 0.6 x 0.5 cm) entirely submitted in cassette A1. EF 04/20/2024 8:13 PM EXECUTIVE PERSONAL ASSISTANT [facility] Disclaimer "Some tests reported here may have been developed and performance characteristics determined by [facility] Pathology and Laboratory Medicine. These tests have not been specifically cleared or approved by the U.S. Food and Drug Administration. If applicable, controls were reviewed and showed appropriate reactivity." 04/20/2024 8:13 PM EXECUTIVE PERSONAL ASSISTANT [facility] Tissue (Falciform Ligament) 04/15/2024 12:13 PM EXECUTIVE PERSONAL ASSISTANT 04/15/2024 1:18 PM EXECUTIVE PERSONAL ASSISTANT John Fong MD LAB PATHOLOGY ORDERABLES Final Result [facility] [address] [place] [phone], [place] * [place] Central Venous Place Exchange (04/15/2024 11:40 AM EXECUTIVE PERSONAL ASSISTANT) Narrative Systemgenerated, Documentation - 04/15/2024 11:40 AM EXECUTIVE PERSONAL ASSISTANT This procedure requires no interpretation from the radiologist. John Fong MD IMG FLUOROSCOPY ORDERABLES Fin al Result * CT Abdomen Pelvis with IV Contrast (04/12/2024 11:18 AM EXECUTIVE PERSONAL ASSISTANT) Anatomical Region Laterality Modality Abdomen, Pelvis Computed Tomogra phy 04/12/2024 11:5 2 AM EXECUTIVE PERSONAL ASSISTANT Impressions 04/12/2024 12:11 PM EXECUTIVE PERSONAL ASSISTANT Wall thickening and slight mucosal irregularity of the gastric antrum/pylorus likely reflects known neoplasm. No definite evidence of metastasis in the abdomen and pelvis. Status post partial left nephrectomy. No residual or recurrent disease. Stable 1.3 cm left adrenal nodule. Small left-sided pleural effusion. Persistent mild right hydronephrosis. Bladder is distended. ACTIONABLE ITEMS/RECOMMENDATIONS*: None. *An Actionable Finding is a finding that may be unrelated to the original reason for imaging but potentially actionable, meaning further investigation may be necessary. The Actionable Findings Vigilance Unit (AFVU) assists medical providers with responding to additional radiologic findings that are unexpected and potentially actionable. Narrative 04/12/2024 12:11 PM EXECUTIVE PERSONAL ASSISTANT FULL RESULT: Examination: CT ABDOMEN PELVIS W CONTRAST on 04/12/2024 11:18 AM. Clinical History: Nausea and vomiting Gastric cancer. Indication: Abdominal Pain. Comparison: 03/23/2024, 02/27/2024, 12/31/2023. Technique: CT ABDOMEN PELVIS W CONTRAST. FINDINGS: Lower Thorax: Small left-sided pleural effusion. There is also a small amount of fluid in the anterior mediastinum, probably postsurgical, partially imaged. Hepatobiliary: No suspicious hepatic lesion. No biliary dilatation. A tiny stone is noted in the gallbladder. Spleen: No splenomegaly. Pancreas: No mass or ductal dilatation. Adrenal Glands: Stable 1.3 cm left adrenal nodule (series 6 image 83). Normal right adrenal gland. Kidneys, Ureters, Bladder: Status post partial left nephrectomy. No recurrent mass. Mild right hydronephrosis is similar to 03/23/2024, but new since 12/31/2023. No radiopaque stone. Bladder is distended. Gastrointestinal Tract: Distal esophagus is mildly thick walled. There is also wall thickening and slight mucosal irregularity of the gastric antrum/pylorus, likely corresponding to biopsy-proven neoplasm. No evidence of bowel obstruction. Pelvic Organs: Prostate and seminal vesicles are unremarkable. Peritoneum/Retroperitoneum: Trace ascites. No free air. There is symmetric bilateral perinephric fat stranding and edema. Lymph Nodes: No lymphadenopathy. Musculoskeletal: No suspicious skeletal lesion. Procedure Note Donna Santamaria MD - 04/12/2024 FULL RESULT: Examination: CT ABDOMEN PELVIS W CONTRAST on 04/12/2024 11:18 AM. Clinical History: Nausea and vomiting Gastric cancer. Indication: Abdominal Pain. Comparison: 03/23/2024, 02/27/2024, 12/31/2023. Technique: CT ABDOMEN PELVIS W CONTRAST. FINDINGS: Lower Thorax: Small left-sided pleural effusion. There is also a smallamount of fluid in the anterior mediastinum, probably postsurgical,partially imaged. Hepatobiliary: No suspicious hepatic lesion. No biliary dilatation. A tinystone is noted in the gallbladder. Spleen: No splenomegaly. Pancreas: No mass or ductal dilatation. Adrenal Glands: Stable 1.3 cm left adrenal nodule (series 6 image 83).Normal right adrenal gland. Kidneys, Ureters, Bladder: Status post partial left nephrectomy. Norecurrent mass. Mild right hydronephrosis is similar to 03/23/2024, butnew since 12/31/2023. No radiopaque stone. Bladder is distended. Gastrointestinal Tract: Distal esophagus is mildly thick walled. There isalso wall thickening and slight mucosal irregularity of the gastricantrum/pylorus, likely corresponding to biopsy-proven neoplasm. No evidence of bowel obstruction. Pelvic Organs: Prostate and seminal vesicles are unremarkable. Peritoneum/Retroperitoneum: Trace ascites. No free air. There is symmetricbilateral perinephric fat stranding and edema. Lymph Nodes: No lymphadenopathy. Musculoskeletal: No suspicious skeletal lesion. IMPRESSION: Wall thickening and slight mucosal irregularity of the gastricantrum/pylorus likely reflects known neoplasm. No definite evidence ofmetastasis in the abdomen and pelvis. Status post partial left nephrectomy. No residual or recurrent disease. Stable 1.3 cm left adrenal nodule. Small left-sided pleural effusion. Persistent mild right hydronephrosis. Bladder is distended. ACTIONABLE ITEMS/RECOMMENDATIONS*: None. *An Actionable Finding is a finding that may be unrelated to the originalreason for imaging but potentially actionable, meaning furtherinvestigation may be necessary. The Actionable Findings Vigilance Unit(AFVU) assists medical providers with responding to additional radiologicfindings that are unexpected and potentially actionable. us Nghia Zhu MD IMG CT ORDERABLES Final Result * (ABNORMAL) .CBC (04/12/2024 9:04 AM EXECUTIVE PERSONAL ASSISTANT) Only the most recent of5 resultswithin the time period is included. White Blood Cell 6.5 4.1 - 10.5 K/uL 04/12/2024 9:15 AM EXECUTIVE PERSONAL ASSISTANT [facility] Red Blood Cell 4.45 4.30 - 6.04 M/uL 04/12/2024 9:15 AM [facility] Hemoglobin 11.0(L) 13.3 - 17.4 g/dL 04/12/2024 9:15 AM [facility] Hematocrit 35.3(L) 39.5 - 51.8 % 04/12/2024 9:15 AM [facility] Mean Cell Volume 79(L) 82 - 99 fL 04/12/2024 9:15 AM [facility] Mean Cell Hemoglobin 24.7(L) 26.6 - 33.2 pg 04/12/2024 9:15 AM [facility] Mean Cell Hemoglobin Concentration 31.2 31.1 - 35.2 g/dL 04/12/2024 9:15 AM [facility] RDW-SD 42.8 37.5 - 49.7 fL 04/12/2024 9:15 AM [facility] Red Cell Diameter Width 14.8 11.6 - 15.5 % 04/12/2024 9:15 AM [facility] Platelet 239 160 - 397 K/uL 04/12/2024 9:15 AM [facility] Mean Platelet Volume 9.6 9.1 - 12.6 fL 04/12/2024 9:15 AM [facility] INRBC 0.0 0.0 - 0.1 /100 WBC 04/12/2024 9:15 AM [facility] Comment: The INRBC (instrument NRBC) value reflects the enumeration of nucleated red blood cells contained in a 200uL sample of whole blood analyzed by the instrument. This value may differ from the NRBC value reported in a manual differential, which is based on a 100 cell differential. Neutrophil % 70.8 43.2 - 72.7 % 04/12/2024 9:15 AM [facility] Lymphocyte % 19.4 16.8 - 46.2 % 04/12/2024 9:15 AM [facility] Monocyte % 7.4 5.1 - 12.5 % 04/12/2024 9:15 AM [facility] Eosinophil % 1.5 0.4 - 6.3 % 04/12/2024 9:15 AM [facility] Basophil % 0.6 0.2 - 1.4 % 04/12/2024 9:15 AM [facility] IGRE % 0.3 0.1 - 1.5 % 04/12/2024 9:15 AM [facility] Comment:The IGRE% includes M etamyelocytes, Myelocytes and Promyelocytes. Neutrophil Abs 4.60 1.95 - 7.25 K/uL 04/12/2024 9:15 AM [facility] Lymphocyte Abs 1.26 1.01 - 3.24 K/uL 04/12/2024 9:15 AM [facility] Monocyte Abs 0.48 0.24 - 0.85 K/uL 04/12/2024 9:15 AM [facility] Eosinophil Abs 0.10 0.02 - 0.50 K/uL 04/12/2024 9:15 AM [facility] Basophil Abs 0.04 0.02 - 0.09 K/uL 04/12/2024 9:15 AM [facility] IG Abs 0.02 0.01 - 0.12 K/uL 04/12/2024 9:15 AM [facility] Blood Peripheral blood specimen / Unknown Venipuncture / Unknown 04/12/2024 9:04 AM [facility] 04/12/2024 9:08 AM [facility] us Nghia Zhu MD LAB BLOOD ORDERABLES Final Resu lt [facility] Unless otherwise noted, all lab tests performed by: Division of Pathology and Laboratory Medicine [address] [place] [phone] * Fractionated Bilirubin (04/12/2024 9:04 AM [facility]) Bilirubin Direct 04/12/20 9:47 AM [facility] Comment: Direct and indirect bilirubin will not be reported when Total bilirubin result is <0.3 mg/dL Indocyanine Green (ICG) may cause falsely elevated bilirubin results. Total and direct bilirubin must not be measured from samples containing indocyanine green. Bilirubin Indirect 2023 9:47 AM [facility] Comment:Direct and indirect bilirubin will not be reported when Total bilirubin result is <0.3 mg/dL Bilirubin Total <0.3 0.0 - 1.2 mg/dL 04/12/2024 9:47 AM [facility] Comment: Direct and indirect bilirubin will not be reported when Total bilirubin result is <0.3 mg/dL Indocyanine Green (ICG) may cause falsely elevated bilirubin results. Total and direct bilirubin must not be measured from samples containing indocyanine green. False elevation of total bilirubin can be seen in patients with IgG concentrations above 28 g/L. Indocyanine Green (ICG) may cause falsely elevated bilirubin results. Total and direct bilirubin must not be measured from samples containing indocyanine green. False elevation of total bilirubin can be seen in patients with IgG concentrations above 28 g/L. Blood Peripheral blood specimen / Unknown Venipuncture / Unknown 04/12/2024 9:04 AM EXECUTIVE PERSONAL ASSISTANT 04/12/2024 9:08 AM [facility] us Nghia Zhu MD LAB BLOOD ORDERABLES Final Resu lt [facility] Unless otherwise noted, all lab tests performed by: Division of Pathology and Laboratory Medicine [address] [place] [phone] * (ABNORMAL) Comprehensive Metabolic Panel (04/12/2024 9:04 AM [facility]) Only the most recent of4 resultswithin the time period is included. Bilirubin Total <0.3 0.0 - 1.2 mg/dL 04/12/2024 9:47 AM [facility] Comment: Direct and indirect bilirubin will not be reported when Total bilirubin result is <0.3 mg/dL Indocyanine Green (ICG) may cause falsely elevated bilirubin results. Total and direct bilirubin must not be measured from samples containing indocyanine green. False elevation of total bilirubin can be seen in patients with IgG concentrations above 28 g/L. eGFR 100 >=60 mL/min/1. 73 sq. m 04/12/2024 9:47 AM [facility] Comment: The eGFRcr is calculated with [...] G2 fulfill criteria for CKD. Tot Protein 6.5 6.4 - 8.3 gm/dL 04/12/2024 9:47 AM [facility] Calcium Level Total 8.6 8.2 - 10.2 mg/dL 04/12/2024 9:47 AM [facility] Alkaline Phosphatase 86 40 - 129 U/L 04/12/2024 9:47 AM [facility] Albumin Level 3.6 3.5 - 5.2 gm/dL 04/12/2024 9:47 AM [facility] AST 16 <=40 U/L 04/12/2024 9:47 AM [facility] ALT 13 <=41 U/L 04/12/2024 9:47 AM [facility] Sodium Level 142 136 - 145 mmol/L 04/12/2024 9:47 AM [facility] Potassium Level 4.4 3.4 - 4.5 mmol/L 04/12/2024 9:47 AM [facility] Chloride 110(H) 98 - 107 mmol/L 04/12/2024 9:47 AM [facility] CO2 25 22 - 29 mmol/L 04/12/2024 9:47 AM [facility] Anion Gap 7 4 - 14 mmol/L 04/12/2024 9:47 AM [facility] Creatinine 0.83 0.67 - 1.17 mg/dL 04/12/2024 9:47 AM [facility] BUN 7 6 - 23 mg/dL 04/12/2024 9:47 AM [facility] Glucose Level 155(H) 70 - 99 mg/dL 04/12/2024 9:47 AM [facility] Comment: Effective 12/14/15, the glucose reference intervals have been updated based on [place] [employer] guidelines (Standards of Medical Care in Diabetes 2016. Diabetes Care 2016; 39: S13-S22). Fasting blood glucose: Normal: 70-99 mg/dL Impaired fasting glucose (increased risk for diabetes or pre-diabetes): 100-125 mg/dL Diabetes mellitus: >/=126 mg/dL Random blood glucose: Normal: 70-199 mg/dL Note: Random glucose >100 mg/dL is associated with increased risk for diabetes. Blood Peripheral blood specimen / Unknown Venipuncture / Unknown 04/12/2024 9:04 AM [employer] [employer]IST[employer] 04/12/2024 9:08 AM [employer] [employer]ERSON[employer]IST[employer] us Nghia Zhu MD LAB BLOOD ORDERABLES Final Resu lt Performing Organization Address City/[facility] Co de Phone Number [facility] Unless otherwise noted, all lab tests performed by: Division of Pathology and Laboratory Medicine [address] [place] [phone] * Phosphorus Level (04/12/2024 9:04 AM EXECUTIVE PERSONAL ASSISTANT) Phosphorus Level 2.6 2.5 - 4.5 mg/dL 04/12/2024 9:47 AM [facility] Blood Peripheral blood specimen / Unknown Venipuncture / Unknown 04/12/2024 9:04 AM EXEC[employer]IVE PERSONAL ASSISTANT 04/12/2024 9:08 AM EXECUTIVE PERSONAL ASSISTANT us Nghia Zhu MD LAB BLOOD ORDERABLES Final Resu lt [facility] Unless otherwise noted, all lab tests performed by: Division of Pathology and Laboratory Medicine [address] [place] [address] [phone] * (ABNORMAL) Magnesium Level (04/12/2024 9:04 AM EXECUTIVE PERSONAL ASSISTANT) Magnesium Level 1.5(L) 1.6 - 2.6 mg/dL 04/12/2024 9:47 AM EXECUTIVE PERSONAL ASSISTANT [facility] Blood Peripheral blood specimen / Unknown Venipuncture / Unknown 04/12/2024 9:04 AM EXEC[employer]IVE PERSONAL ASSISTANT 04/12/2024 9:08 AM EXECUTIVE PERSONAL ASSISTANT us Nghia Zhu MD LAB BLOOD ORDERABLES Final Resu lt [facility] Unless otherwise noted, all lab tests performed by: Division of Pathology and Laboratory Medicine [address] [place] [address] [phone] * (ABNORMAL) Lipase (04/12/2024 9:04 AM EXECUTIVE PERSONAL ASSISTANT) Pathologist [facility] Lipase Level 311(H) 13 - 60 U/L 04/12/2024 10:09 AM EXECUTIVE PERSONAL ASSISTANT [facility] Blood Peripheral blood specimen / Unknown Venipuncture / Unknown 04/12/2024 9:04 AM EXECUTIVE PERSONAL ASSISTANT 04/12/2024 9:08 AM EXECUTIVE PERSONAL ASSISTANT Narrative [facility] - 04/12/2024 10:09 AM EXECUTIVE PERSONAL ASSISTANT Reference range established based on adult population us Nghia Zhu MD LAB BLOOD ORDERABLES Final Resu lt Performing Organization Address [facility] de Phone Number [facility] Unless otherwise noted, all lab tests performed by: Division of Pathology and Laboratory Medicine [address] [place] [phone] * (ABNORMAL) LDH (04/12/2024 9:04 AM EXECUTIVE PERSONAL ASSISTANT) LDH 121(L) 135 - 225 U/L 04/12/2024 9:47 AM EXECUTIVE PERSONAL ASSISTANT [facility] Blood Peripheral blood specimen / Unknown Venipuncture / Unknown 04/12/2024 9:04 AM EXEC[employer]IVE PERSONAL ASSISTANT 04/12/2024 9:08 AM EXECUTIVE PERSONAL ASSISTANT Narrative [facility] - 04/12/2024 9:47 AM EXEC[employer]IVE PERSONAL ASSISTANT Results greater than 1651 U/L may not be reliable due to matrix effect with extended dilution as it exceeds the commissary superintendent's recommended limit. Caution should be exercised when interpreting such values and done in conjunction with clinical context. us Nghia Zhu MD LAB BLOOD ORDERABLES Final Resu lt Performing Organization Address City/[facility] Co de Phone Number [facility] Unless otherwise noted, all lab tests performed by: Division of Pathology and Laboratory Medicine [address] [place] [phone] * (ABNORMAL) Amylase (04/12/2024 9:04 AM EXECUTIVE PERSONAL ASSISTANT) Amylase Level 171(H) 28 - 100 U/L 04/12/2024 9:47 AM EXECUTIVE PERSONAL ASSISTANT [facility] Blood Peripheral blood specimen / Unknown Venipuncture / Unknown 04/12/2024 9:04 AM EXEC[employer]IVE PERSONAL ASSISTANT 04/12/2024 9:08 AM EXECUTIVE PERSONAL ASSISTANT Nghia Zhu MD LAB BLOOD ORDERABLES Final Resu lt Performing Organization Address [facility] de Phone Number [facility] Unless otherwise noted, all lab tests performed by: Division of Pathology and Laboratory Medicine [address] [place] [phone] * TSH (04/09/2024 11:09 AM EXECUTIVE PERSONAL ASSISTANT) Only the most recent of2 resultswithin the time period is included. Thyroid Stimulating Hormone 1.53 0.27 - 4.20 mcunit/mL 04/09/2024 12:23 PM EXECUTIVE PERSONAL ASSISTANT [facility] Blood Peripheral blood specimen / Unknown Venipuncture / Unknown 04/09/2024 11:09 AM EXEC[employer]IVE PERSONAL ASSISTANT 04/09/2024 11:19 AM EXECUTIVE PERSONAL ASSISTANT Ceci Nicholson MD LAB BLOOD ORDERABLES Final Resu lt Performing Organization Address City/State/[facility] Co de Phone Number [facility] Unless otherwise noted, all lab tests performed by: Division of Pathology and Laboratory Medicine [address] [place] [address] [phone] * (ABNORMAL) Hemoglobin A1c (04/09/2024 11:09 AM EXECUTIVE PERSONAL ASSISTANT) Only the most recent of3 resultswithin the time period is included. Hemoglobin A1c 7.0(H) 4.3 - 5.6 % 04/09/2024 12:14 PM EXECUTIVE PERSONAL ASSISTANT [facility] Blood Peripheral blood specimen / Unknown Venipuncture / Unknown 04/09/2024 11:09 AM EXEC[employer]IVE PERSONAL ASSISTANT 04/09/2024 11:19 AM EXECUTIVE PERSONAL ASSISTANT Narrative [facility] - 04/09/2024 12:14 PM EXECUTIVE PERSONAL ASSISTANT HbA1c values >=6.5% are diagnostic of diabetes mellitus. Diagnosis should be confirmed by repeat testing. Therapeutic Action suggested: >8.0% HbA1c; Goal of therapy: <7.0% HbA1c us Ceci Nicholson MD LAB BLOOD ORDERABLES Final Resu lt Performing Organization Address City/[facility]/ZIP Co de Phone Number [facility] Unless otherwise noted, all lab tests performed by: Division of Pathology and Laboratory Medicine [address] [place] [phone] * EKG, 12-Lead (Scheduled) (04/09/2024) Only the most recent of2 resultswithin the time period is included. us Ceci Nicholson MD ECG ORDERABLES Final Result Performing Organization Address City/[facility] Co de Phone Number [facility] * Pathology Outside Interpretation (04/02/2024) Materials Received Accession#, Stained, Block, Unstained Collected Received A. [id number], 20 SS, 0 BLOCKS, 0 USS 04/02/2024 04/22/2024 04/22/2024 5:36 PM EXECUTIVE PERSONAL ASSISTANT [facility] Diagnosis Outside ([id number], 20 SS, 0 BLOCKS, 0 USS, collected on 04/02/2024): A. Gastric, antral mass, biopsy (A1): Gastric antral mucosa with mild foveolar hyperplasia. No intestinal metaplasia, dysplasia or malignancy identified. See comment. B. Gastric body, biopsy (B1): Gastric oxyntic mucosa with mild chronic inactive gastritis. No intestinal metaplasia, dysplasia or malignancy identified. No morphologic evidence of Helicobacter pylori organisms. C. Gastroesophageal junction, biopsy (C1): POORLY DIFFERENTIATED ADENOCARCINOMA WITH SIGNET CELL FEATURES. See comment. FY/ISAURO 04/22/2024 5:36 PM [facility] Comment Part A. There is no evidence of malignancy on H&E and immunohistochemical stain for Cytokeratin AE1/AE3. Of note, the biopsy may not be shipping services sales representative of the entire lesion. Please correlate with clinical information and radiographic findings. If clinically indicated, rebiopsy may be considered. Part C. Intact expression of DNA mismatch repair proteins in tumor by immunohistochemistry. Submitted immunoperoxidase stains were performed with antibodies for the DNA mismatch repair enzymes MLH1, MSH2, MSH6 and PMS2. Intact nuclear expression is evident for all four of these proteins in carcinoma cells and in non-neoplastic cells that serve as internal controls. Therefore, the likelihood of defective DNA mismatch repair/high levels of microsatellite instability (MSI-H) in the tumor is low. HER-2/shanon immunohistochemistry: Negative (Score: 0) 04/22/2024 5:36 PM [facility] Biomarker Block(s) Block for biomarker testing: C1 Normal block: N/A 04/22/2024 5:36 PM [facility] Disclaimer "Some tests reported here may have been developed and performance characteristics determined by [facility] Pathology and Laboratory Medicine. These tests have not been specifically cleared or approved by the U.S. Food and Drug Administration. If applicable, controls were reviewed and showed appropriate reactivity." 04/22/2024 5:36 PM [facility] Tissue 04/02/2024 04/22/2024 6:4 0 AM EXECUTIVE PERSONAL ASSISTANT us Sybil Edmonds MD LAB PATHOLOGY ORDERABLES Final R esult [facility] [place] [address], [place] * OSI CT Abdomen and Pelvis (04/01/2024 8:21 AM EXECUTIVE PERSONAL ASSISTANT) Only the most recent of3 resultswithin the time period is included. Narrative Systemgenerated, Documentation - 04/27/2024 8:22 AM EXECUTIVE PERSONAL ASSISTANT Study acquired at another institution. For comparison only. No [facility] originated interpretation requested or available. [place] [facility] Regan Zhu DO IMG OUTSIDE IMAGE ORDERAB LES Final Result * OSI CT CHEST ABDOMEN PELVIS (03/23/2024 7:37 PM EXECUTIVE PERSONAL ASSISTANT) Narrative Systemgenerated, Documentation - 04/09/2024 7:37 PM EXECUTIVE PERSONAL ASSISTANT Study acquired at another institution. For comparison only. No [facility] originated interpretation requested or available. Margoth Souza MD IMG OUTSIDE IMAGE ORDERABLES Fin al Result * OSI Chest (03/23/2024 7:37 PM EXECUTIVE PERSONAL ASSISTANT) Only the most recent of4 resultswithin the time period is included. Narrative Systemgenerated, Documentation - 04/09/2024 7:37 PM EXECUTIVE PERSONAL ASSISTANT Study acquired at another institution. For comparison only. No [facility] originated interpretation requested or available. Margoth Souza MD IMG OUTSIDE IMAGE ORDERABLES Fin al Result * OSI CT Chest (03/22/2024 8:21 AM EXECUTIVE PERSONAL ASSISTANT) Narrative Systemgenerated, Documentation - 04/27/2024 8:21 AM EXECUTIVE PERSONAL ASSISTANT Study acquired at another institution. For comparison only. No [facility] originated interpretation requested or available. [place] [facility] Reganjoe Zhu DO IMG OUTSIDE IMAGE ORDERAB LES Final Result * (ABNORMAL) Basic Metabolic Panel- Total Calcium (01/03/2024 2:59 PM CDT) Only the most recent of7 resultswithin the time period is included. eGFR 71 >=60 mL/min/1. 73 sq. m 01/03/2024 3:44 PM CDT [facility] Comment: The eGFRcr is calculated with the [...] - 10.2 mg/dL 01/03/2024 3:44 PM CDT [facility] Sodium Level 139 136 - 145 mmol/L 01/03/2024 3:44 PM CDT [facility] Potassium Level 3.9 3.4 - 4.5 mmol/L 01/03/2024 3:44 PM CDT [facility] Chloride 103 98 - 107 mmol/L 01/03/2024 3:44 PM CDT [facility] CO2 28 22 - 29 mmol/L 01/03/2024 3:44 PM CDT [facility] Anion Gap 8 4 - 14 mmol/L 01/03/2024 3:44 PM CDT [facility] Creatinine 1.18(H) 0.67 - 1.17 mg/dL 01/03/2024 3:44 PM CDT [facility] BUN 15 6 - 23 mg/dL 01/03/2024 3:44 PM CDT [facility] Glucose Level 137(H) 70 - 99 mg/dL 01/03/2024 3:44 PM CDT [facility] Comment: Effective 12/14/15, the glucose reference intervals have been updated based on [place] [employer] guidelines (Standards of Medical Care [...] BLOOD ORDERABLES Final Result Performing Organization Address City/[facility] Co de Phone Number [facility] Unless otherwise noted, all lab tests performed by: Division of Pathology and Laboratory Medicine [address] [place] [phone] * Zinc Transporter 8 Ab (01/03/2024 4:22 AM CDT) Pathologist [facility] Zinc T8 AB <15.0 <15.0 U/mL 01/15/2024 11:18 AM CDT [facility] Comment: ADDITIONAL INFORMATION This test has been modified from the commissary superintendent's instructions. Its performance characteristics were determined by [facility] in a manner consistent with CLIA requirements. This test has not been cleared or approved by the U.S. Food and Drug Administration. Test Performed by: [address] [address] Family Law Mediator: Mary Jane Topete Ph.D.; CLIA# [id number] Blood Peripheral blood specimen / Unknown Venipuncture / Unknown 01/03/2024 4:22 AM CDT 01/03/2024 4:55 AM CDT Alicia Mcmanus APRN LAB BLOOD ORDERABLES Final Result Performing Organization Address City/[facility] Co de Phone Number [facility] * Islet Antigen 2 (IA-2) Antibody (01/03/2024 4:22 AM CDT) IA-2 Antibody 0.00 <=0.02 nmol/L 01/07/2024 12:20 AM CDT [facility] Comment: ADDITIONAL INFORMATION This test was developed and its performance characteristics determined by [facility] in a manner consistent with CLIA requirements. This test has not been cleared or approved by the U.S. Food and Drug Administration. Test Performed by: [place] [address] Family Law Mediator: Mary Jane Topete Ph.D.; CLIA# [id number] Blood Peripheral blood specimen / Unknown Venipuncture / Unknown 01/03/2024 4:22 AM CDT 01/03/2024 4:55 AM CDT Alicia Mcmanus APRN [facility] BLOOD ORDERABLES Final Result Performing Organization Address [facility] Co de Phone Number [facility] * GREG Ab Assay (01/03/2024 4:22 AM CDT) Pathologist [facility] [id number] Ab-[place] 0.00 <=0.02 nmol/L 01/07/2024 12:01 AM CDT [facility] Comment: ADDITIONAL INFORMATION This test was developed and its performance characteristics determined by [facility] in a manner consistent with CLIA requirements. This test has not been cleared or approved by the U.S. Food and Drug Administration. Test Performed by: [facility] [address] Family Law Mediator: Mary Jane Topete Ph.D.; CLIA# [id number] Blood Peripheral blood specimen / Unknown Venipuncture / Unknown 01/03/2024 4:22 AM CDT 01/03/2024 4:55 AM CDT Alicia Mcmanus APRN LAB BLOOD ORDERABLES Final Result Performing Organization Address [facility] de Phone Number [facility] * Insulin Ab (01/03/2024 4:22 AM CDT) Pathologist [facility] Insulin Ab-[place] 0.00 0.00 - 0.02 nmol/L 01/06/2024 5:14 PM CDT [facility] Comment: ADDITIONAL INFORMATION This test was developed and its performance characteristics determined by [facility] in a manner consistent with CLIA requirements. This test has not been cleared or approved by the U.S. Food and Drug Administration. Test Performed by: [facility] [place] [address] Family Law Mediator: Mary Jane Topete Ph.D.; CLIA# [id number] Blood Peripheral blood specimen / Unknown Venipuncture / Unknown 01/03/2024 4:22 AM CDT 01/03/2024 4:55 AM CDT Alicia Mcmanus APRN LAB BLOOD ORDERABLES Final Result [facility] * C Peptide (01/03/2024 4:22 AM CDT) Pathologist [facility] C-Peptide 2.12 1.10 - 4.40 ng/mL 01/03/2024 5:48 AM CDT [facility] Blood Peripheral blood specimen / Unknown Venipuncture / Unknown 01/03/2024 4:22 AM CDT 01/03/2024 4:55 AM CDT Alicia Mcmanus APRN LAB BLOOD ORDERABLES Final Result [facility] Unless otherwise noted, all lab tests performed by: Division of Pathology and Laboratory Medicine [address] [place] [address] [phone] * (ABNORMAL) Hemogram (01/02/2024 7:20 PM CDT) [facility] White Blood Cell 13.8(H) 4.1 - 10.5 K/uL 01/02/2024 7:33 PM CDT [facility] Red Blood Cell 4.74 4.30 - 6.04 M/uL 01/02/2024 7:33 PM CDT [facility] Hemoglobin 12.2(L) 13.3 - 17.4 g/dL 01/02/2024 7:33 PM CDT [facility] Hematocrit 38.6(L) 39.5 - 51.8 % 01/02/2024 7:33 PM CDT [facility] Mean Cell Volume 81(L) 82 - 99 fL 01/02/2024 7:33 PM CDT [facility] Mean Cell Hemoglobin 25.7(L) 26.6 - 33.2 pg 01/02/2024 7:33 PM CDT [facility] Mean Cell Hemoglobin Concentration 31.6 31.1 - 35.2 g/dL 01/02/2024 7:33 PM CDT [facility] RDW-SD 39.1 37.5 - 49.7 fL 01/02/2024 7:33 PM CDT [facility] Red Cell Diameter Width 13.1 11.6 - 15.5 % 01/02/2024 7:33 PM CDT [facility] Platelet 291 160 - 397 K/uL 01/02/2024 7:33 PM CDT [facility] Mean Platelet Volume 9.7 9.1 - 12.6 fL 01/02/2024 7:33 PM CDT [facility] INRBC 0.0 0.0 - 0.1 /100 WBC 01/02/2024 7:33 PM CDT [facility] Comment: The INRBC (instrument NRBC) [...] PRICE LAB BLOOD ORDERABLES Final R esult [facility] Unless otherwise noted, all lab tests performed by: Division of Pathology and Laboratory Medicine [address] [place] [address] [phone] * (ABNORMAL) Beta Hydroxy Quant (01/02/2024 7:20 PM CDT) Only the most recent of2 resultswithin the time period is included. Beta-Hydroxybuty rate 0.85(H) 0.02 - 0.27 mmol/L 01/02/2024 8:01 PM CDT [facility] Is patient fasting? No 01/02/2024 8:01 PM CDT [facility] Comment:A fasting specimen i s recommended and results obtained from non-fasting specimens should be interpreted with caution using reference ranges based on fasting status and in conjunction with clinical context. Blood Peripheral blood specimen / Unknown Venipuncture / Unknown 01/02/2024 7:20 PM CDT 01/02/2024 7:24 PM CDT Narrative [facility] - 01/02/2024 8:01 PM CDT Reference range based on fasting. us Alicia Mcmanus APRN LAB BLOOD ORDERABLES Final Result Performing Organization Address [facility] Co de Phone Number [facility] Unless otherwise noted, all lab tests performed by: Division of Pathology and Laboratory Medicine [address] [place] [phone] * (ABNORMAL) ABG+ (ABG, Na, K, Cl, Glu, Hgb, Hct, Lactate, Ion Ca) (01/02/2024 10:38 AM CDT) Only the most recent of2 resultswithin the time period is included. Sodium Arterial 140 136 - 146 mmol/L 01/02/2024 10:44 AM CDT [facility] Potassium Arterial 3.7 3.4 - 4.5 mmol/L 01/02/2024 10:44 AM CDT [facility] Chloride Arterial 103 98 - 106 mmol/L 01/02/2024 10:44 AM CDT [facility] Glucose Arterial 270(H) 70 - 105 mg/dL 01/02/2024 10:44 AM T [facility] Hgb Art 12.9(L) 13.5 - 17.5 g/dL 01/02/2024 10:44 AM T [facility] Hematocrit Arterial 40(L) 42 - 52 % 01/02/2024 10:44 AM T [facility] Lactate Arterial 1.0(H) 0.4 - 0.8 mmol/L 01/02/2024 10:44 AM T [facility] Calcium Ionized Arterial 1.14(L) 1.15 - 1.29 mmol/L 01/02/2024 10:44 AM T [facility] pH Arterial 7.35 7.35 - 7.45 01/02/2024 10:44 AM T [facility] P CO2 Arterial 42.9 35.0 - 48.0 mmHg 01/02/2024 10:44 AM T [facility] P O2 Arterial 164(H) 83 - 108 mmHg 01/02/2024 10:44 AM T [facility] Bicarbonate Arterial 24 21 - 28 mmol/L 01/02/2024 10:44 AM T [facility] WB Anion Gap 13 7 - 16 mmol/L 01/02/2024 10:[address] [facility] Base Excess Arterial -2 -2 - 3 mmol/L 01/02/2024 10:[address] [facility] Oxygen Saturation Arterial 99 95 - 99 % 01/02/2024 10:[address] [facility] Oxygen FLOW Rate/ FiO2 01/02/2024 10:[address] [facility] O2 Therapy 01/02/2024 10:[address] [facility] Art Kirill Test Not Applicable (Arterial Line Draw) 01/02/2024 10:[address] [facility] Blood Arterial blood specimen / Unknown Arterial Line / Unknown 01/02/2024 10:38 AM CDT 01/02/2024 10:41 AM CDT Narrative [facility] - 01/02/2024 10:44 AM CDT [...] MD LAB BLOOD ORDERABLES Final Re sult [facility] Unless otherwise noted, all lab tests performed by: Division of Pathology and Laboratory Medicine [address] [place] [address] * Intraoperative Ultrasound - For Image Storage [...] EXP DATE 01/22/2024 12/23/2023 2:19 PM CDT [facility] Blood Peripheral blood specimen / Unknown Venipuncture / Unknown 12/23/2023 8:51 AM CDT 12/23/2023 9:00 AM CDT us Margoth Souza MD BLOOD BANK TEST ORDERABLES Final Result [facility] [address] [facility] [address] [place] [address] * Preop Updated Expiration (12/23/2023 8:51 AM CDT) PREOP STATUS 01/02/2024 11:33 PM CDT [facility] PREOP EXP DATE 01/02/2024 01/02/2024 11:33 PM CDT [facility] Blood Peripheral blood specimen / Unknown Venipuncture / Unknown 12/23/2023 8:51 AM CDT 12/23/2023 9:00 AM CDT Result [facility] us Margoth Souza MD BLOOD BANK TEST ORDERABLES Final Result [facility] [address] [facility] [address] [place] [address] * (ABNORMAL) Urinalysis with Reflex Culture (12/23/2023 8:51 AM CDT) Only the most recent of2 resultswithin the time period is included. Urine Appearance Clear Clear 12/23/19 9:33 AM CDT [facility] Urine Color Straw Colorless, Straw, Yellow, Dark Yellow, Straw-Yellow 12/23/2023 9:33 AM CDT [facility] Urine Specific [place] 1.032 1.003 - 1.035 12/23/2023 9:33 AM CDT [facility] Urine pH 6.0 5.0 - 8.0 12/23/2023 9:33 AM CDT [facility] Urine Glucose >=1000(A) Negative mg/dL 12/23/2023 9:33 AM CDT [facility] Urine Ketones Negative Negative mg/dL 12/23/2023 9:33 AM CDT [facility] Urine Blood Negative Negative 12/23/2023 9:33 AM CDT [facility] Urine Protein 30(A) Negative mg/dL 12/23/2023 9:33 AM CDT [facility] Urine Bilirubin Negative Negative 9:33 AM CDT [facility] Urine Urobilinogen Negative Negative 12/23/2023 9:33 AM CDT [facility] Urine Nitrite Negative Negative 12/23/2023 9:33 AM CDT [facility] Urine Leukocyte Esterase Negative Negative 12/23/2023 9:33 AM CDT [facility] Urine Mucous Not Seen Not Seen, Trace /HPF 12/23/2023 9:33 AM CDT [facility] Urine Bacteria Not Seen Not Seen /HPF 12/23/2023 9:33 AM CDT [facility] Urine Squamous Epithelial Cells OCC Not Seen, OCC, Rare /HPF 12/23/2023 9:33 AM CDT [facility] Urine WBC <1 <=2 /HPF 12/23/2023 9:33 AM CDT [facility] Urine RBC 1 <=2 /HPF 12/23/2023 9:33 AM CDT [facility] Urine Voided urine specimen / Unknown Non-blood Collection / Unknown 12/23/2023 8:51 AM CDT 12/23/2023 9:10 AM CDT Narrative [facility] - 12/23/2023 9:33 AM CDT Some reporting parameters within the Urinalysis test have changed due to the implementation of new instrumentation in the Main [place], allowing greater sensitivity of measurement. Urinalysis results reported by the [facility] using existing instrumentation, as well as Urinalysis testing performed manually or by back-up methodology at the main [place], will remain relatively unchanged. New reporting parameters and units will now be reported for all campuses. us Margoth Souza MD URINE ORDERABLES Final Result [facility] Unless otherwise noted, all lab tests performed by: Division of Pathology and Laboratory Medicine [address] [place] [id number] * 30-Day Pre-Op Type and Screen (12/23/2023 8:51 AM CDT) Only the most recent of2 resultswithin the time period is included. ABORh O POS 12/23/2023 8:45 AM CDT [facility] ABSC Negative 12/23/2023 8:45 AM CDT [facility] BB Criteria Met Criteria met 12/23/2023 8:45 AM CDT [facility] Historical Record Check Complete 12/23/2023 8:45 AM CDT [facility] Blood Peripheral blood specimen / Unknown Venipuncture / Unknown 12/23/2023 8:51 AM CDT 12/23/2023 9:00 AM CDT Margoth Souza MD BLOOD BANK TEST ORDERABLES Final Result Performing Organization Address City/[facility] Co de Phone Number [facility] [address] [place] [address] [address] [place] [address] * TMP Interpretation Exception PreOp Expiration (12/23/2023 8:51 AM CDT) Only the most recent of2 resultswithin the time period is included. TMP Exception 12/24/2023 10:47 AM CDT [facility] TMP Signature . 12/24/2023 10:47 AM CDT [facility] Blood Peripheral blood specimen / Unknown Venipuncture / Unknown 12/23/2023 8:51 AM CDT 12/23/2023 9:00 AM CDT us Margoth Souza MD BLOOD BANK TEST ORDERABLES Final Result [facility] [address] [place] [address] [address] [place] [address] * ACTH (12/09/2023 9:45 AM CDT) Only the most recent of2 resultswithin the time period is included. ACTH 22 7 - 63 pg/mL 12/09/2023 12:19 PM CDT [facility] Blood Peripheral blood specimen / Unknown Venipuncture / Unknown 12/09/2023 9:45 AM CDT 12/09/2023 9:52 AM CDT Narrative [facility] - 12/09/2023 12:19 PM CDT Reference range established based on adult population (7 - 10am draws). No established reference values for p.m. draws. Results greater than 1826 pg/mL may not be reliable due to matrix effect with extended dilution as it exceeds the commissary superintendent's recommended limit. ACTH reference intervals are established for the morning hours from 7-10 am. Due to the circadian rhythm of ACTH levels in plasma, the sample collection time must be noted. Caution should be exercised when interpreting such values and done in conjunction with clinical context. Leah-Zora ElizaEvonne FRANK LAB BLOOD ORDERABLES Final Result Performing Organization Address City/[facility] Co de Phone Number [facility] Unless otherwise noted, all lab tests performed by: Division of Pathology and Laboratory Medicine [address] [place] [address] * DHEA Sulfate (12/09/2023 9:45 AM CDT) Pathologist [facility] [place] [facility] 81 20 - 299 mcg/dL 12/10/2023 12:10 PM CDT [facility] Comment: Test Performed by: [facility] [address] [place] [address] Family Law Mediator: Mary Jane Topete Ph.D.; CLIA# [id number] Blood Peripheral blood specimen / Unknown Venipuncture / Unknown 12/09/2023 9:45 AM CDT 12/09/2023 9:56 AM CDT Veronica Del Castillo APRN LAB BLOOD ORDERABLES Final Result Performing Organization Address City/[facility] Co de Phone Number [facility] * Cortisol, Total (12/09/2023 9:45 AM CDT) Only the most recent of4 resultswithin the time period is included. Cortisol 11.39 4.82 - 19.50 mcg/dL 12/09/2023 11:00 AM CDT [facility] Blood Peripheral blood specimen / Unknown Venipuncture / Unknown 12/09/2023 9:45 AM CDT 12/09/2023 9:55 AM CDT Narrative [facility] - 12/09/2023 11:00 AM CDT Cortisol [...] Afternoon (4-8 pm): 2.47 - 11.9 mcg/dL Leah-Zora Del Castillo BAKERY MACHINE MECHANIC SUPERVISOR LAB BLOOD ORDERABLES Final Result Performing Organization Address City/[facility] Co de Phone Number [facility] Unless otherwise noted, all lab tests performed by: Division of Pathology and Laboratory Medicine [address] [place] [phone] * IR CT GUIDED BIOPSY RENAL (10/03/2023 10:27 AM CDT) Anatomical Region Laterality Modality Abdomen/Pelvis, Organ (liver/spleen/kidney) Computed Tomography Narrative 10/04/2023 9:03 AM CDT Table formatting from the original result was not included. Date of Procedure: 10/03/23 Attending Physician: Kumar Comer MD Banking Services Advisor: None Pre Procedure Diagnosis: Renal mass Post [...] Interventional Radiology required. us Shazia Arriaza MD [facility] IR ORDERABLES Final Re sult * Pathology [...] in A1. ET 10/04/2023 9:52 AM CDT [facility] Biomarker Block(s) Tumor: A1 10/04/2023 9:52 AM CDT [facility] Disclaimer "Some tests reported here may have been developed and performance characteristics determined by [facility] Pathology and Laboratory Medicine. These tests have not been specifically cleared or approved by the U.S. Food and Drug Administration. If applicable, controls were reviewed and showed appropriate reactivity." 10/04/2023 9:52 AM CDT [facility] Tissue (Kidney, Left) 10/03/2023 10:19 AM CDT 10/03/2023 12:29 PM CDT Shazia Arriaza MD LAB PATHOLOGY ORDERABLES F inal Result [address] [id number], * Prothrombin Time (10/03/2023 9:27 AM CDT) Pathologist [facility] [place] [facility] Prothrombin Time 12.6 11.9 - 14.5 second(s) 10/03/2023 9:57 AM CDT [facility] International Normalization Ratio 0.98 0.87 - 1.12 10/03/2023 9:57 AM CDT [facility] Blood Peripheral blood specimen / Unknown Venipuncture / Unknown 10/03/2023 9:27 AM CDT 10/03/2023 9:28 AM CDT us Abilio Ng PA-C LAB BLOOD ORDERABLES Final Result [facility] [address] [facility] [place] [address] * Type and Screen (10/03/2023 9:27 AM CDT) ABORh O POS 10/03/2023 9:17 AM CDT [facility] ABSC Negative 10/03/2023 9:17 AM CDT [facility] Clot Expiration 10/06/2023 23:59 10/03/2023 9:17 AM CDT [facility] Historical Record Check Complete 10/03/2023 9:17 AM CDT [facility] Blood Peripheral blood specimen / Unknown Venipuncture / Unknown 10/03/2023 9:27 AM CDT 10/03/2023 9:52 AM CDT us Conrado-Dannielle D Ho ALBERT-Adams BLOOD BANK TEST ORDERABLES Final Result [facility] [address] [place] [address] * X-ray Chest 2 Views (09/19/2023 9:24 [...] and potentially actionable. us Shazia Arriaza MD [facility] DIAGNOSTIC IMAGING ORD ERABLES Final Result * Metanephrines Fractionated (09/16/2023 4:24 PM CDT) Normetane Free-Maxwell 0.43 <0.90 nmol/L 09/19/2023 2:59 PM CDT [facility] Metanephr Free-[place] <0.20 <0.50 nmol/L 09/19/2023 2:59 PM CDT [facility] Comment: ADDITIONAL INFORMATION This test was developed and its performance characteristics determined by [facility] in a manner consistent with CLIA requirements. This test has not been cleared or approved by the U.S. Food and Drug Administration. Test Performed by: [facility] - [address] [address] Family Law Mediator: Scot Skelton M.D. Ph.D.; CLIA# [id number] Blood Peripheral blood specimen / Unknown Venipuncture / Unknown 09/16/2023 4:24 PM CDT 09/16/2023 4:41 PM CDT Shazia Arriaza MD LAB BLOOD ORDERABLES Final Result [facility] * Hepatitis C Virus Antibody (09/16/2023 4:24 PM CDT) [facility] HCVAb. Non Reactive Non Reactive 09/17/2023 9:11 AM CDT [facility] Blood Peripheral blood specimen / Unknown Venipuncture / Unknown 09/16/2023 4:24 PM CDT 09/16/2023 4:41 PM CDT Narrative [facility] - 09/17/2023 9:11 AM CDT Antibody detection in the immunocompromised and immunosuppressed population may be delayed or absent entirely. Therefore serial testing, correlation with other clinical findings, and supplemental testing (if available) should be taken into consideration when interpreting the results. us Shazia Arriaza MD LAB BLOOD ORDERABLES Final Result [facility] Unless otherwise noted, all lab tests performed by: Division of Pathology and Laboratory Medicine [address] [place] [phone] * Aldosterone Level (09/16/2023 4:24 PM CDT) [facility] Aldosterone-[place] 8.1 <=21 ng/dL 09/20/2023 1:02 AM CDT [facility] Comment: ADDITIONAL INFORMATION Reference range for patients 11 years and older is based on upright A.M. collection from subjects without sodium restrictions. This test was developed and its performance characteristics determined by [facility] in a manner consistent with CLIA requirements. This test has not been cleared or approved by the U.S. Food and Drug Administration. Test Performed by: [facility] - [place] [id number] [place] [address] Family Law Mediator: Scot Skelton M.D. Ph.D.; CLIA# [id number] Blood Peripheral blood specimen / Unknown Venipuncture / Unknown 09/16/2023 4:24 PM CDT 09/16/2023 4:41 PM CDT Shazia Arriaza MD LAB BLOOD ORDERABLES Final Result Performing Organization Address City/[facility] Co de Phone Number [facility] * Renin Activity (09/16/2023 4:24 PM CDT) [facility] Renin Activity-[place] 4.3 ng/mL/h 09/19 3:42 PM CDT [facility] Comment: REFERENCE VALUE (Peripheral vein specimen) Na-deplete, upright: Mean: 5.9 Range: 2.9-10.8 Na-replete, upright: Mean: 1.0 Range: < or =0.6-3.0 ADDITIONAL INFORMATION Testing performed by Liquid Chromatography-Tandem Mass Spectrometry (LC-MS/MS). This test was developed and its performance characteristics determined by [facility] in a manner consistent with CLIA requirements. This test has not been cleared or approved by the U.S. Food and Drug Administration. Test Performed by: [facility] - [address] [address] Family Law Mediator: Scot Skelton M.D. Ph.D.; CLIA# [id number] Blood Peripheral blood specimen / Unknown Venipuncture / Unknown 09/16/2023 4:24 PM CDT 09/16/2023 4:41 PM CDT Shazia Arriaza MD LAB BLOOD ORDERABLES Final Result Performing Organization Address City/[facility] Co de Phone Number [facility] TIFF * Urine Culture (09/16/2023 4:24 PM CDT) Pathologist [facility] [place] [facility] Urine Culture Normal site mirna present. Generally of low significance. Correlate with clinical data and culture history. 09/18/2023 8:31 AM CDT [facility] Urine Voided urine specimen / Unknown Non-blood Collection / Unknown 09/16/2023 4:24 PM CDT 09/16/2023 4:41 PM CDT us Shazia Arriaza MD MICROBIOLOGY - GENERAL ORD ERABLES Final Result [facility] Unless otherwise noted, all lab tests performed by: Division of Pathology and Laboratory Medicine [address] [place] [phone] * T4 (09/16/2023 4:24 PM CDT) Pathologist [facility] [place] [facility] Thyroxine 7.0 4.5 - 11.7 mcg/dL 09/16/2023 5:55 PM CDT [facility] Blood Peripheral blood specimen / Unknown Venipuncture / Unknown 09/16/2023 4:24 PM CDT 09/16/2023 4:41 PM CDT us Shazia Arriaza MD LAB BLOOD ORDERABLES Final Result Performing Organization Address City/[facility]/ZIP Co de Phone Number [facility] Unless otherwise noted, all lab tests performed by: Division of Pathology and Laboratory Medicine [address] [place] [phone] * Confirm ABORh (09/16/2023 4:23 PM CDT) [facility] ABORh Confirm O POS 09/16/2023 4:15 PM CDT [facility] Blood Peripheral blood specimen / Unknown Venipuncture / Unknown 09/16/2023 4:23 PM CDT 09/16/2023 4:41 PM CDT Result Awa Arriaza MD BLOOD BANK TEST ORDERABLES Final Result [facility] TRANSF[facility]ION [facility] Transfusion [facility] [address] [place] [address] * OSI CT Brain (07/17/2023 7:40 AM EXECUTIVE PERSONAL ASSISTANT) Narrative Systemgenerated, Documentation - 08/08/2023 7:40 AM CDT Study acquired at another institution. For comparison only. No MD Gimenez originated interpretation requested or available. us Margoth Souza MD IMG OUTSIDE IMAGE ORDERABLES Fin al Result after 05/04/2023 Insurance MEDICARE PART A AND B MEDICARE PART A AND B Advance Directives * Full Code (Latest Code Status on File) Date Activated Date Inactivated Comments 04/12/2024 1:24 PM 04/12/2024 5:43 PM * Full Code Date Activated Date Inactivated Comments 01/02/2024 1:48 PM 01/03/2024 7:17 PM Care Teams Pocketed Spring Machine Operator Relationship Specialty Start Date End Date Margoth Souza MD [address] [place] [phone] [email or web address] PCP - General Urology 07/30/23 04/14/24 Eagle Zhu DO [address] [place] [id number] [email or web address] PCP - External Primary Care Provider Family Practice 04/08/24 Mary Jane Cassidy MD [address] [place] [phone] [email or web address]. [facility] Consulting Physician Endocrinology 12/09/23 Barry He MD [address] [place] [phone] [email or web address] Consulting Physician Internal Medicine 12/23/23 Patience Hunt MD [address] [place] [phone] [email or web address] Consulting Physician Endocrinology 12/31/23 Marianela Hutchinson MD [address] [place] [phone] [email or web address] Consulting Physician Gastrointestinal Medical Oncology 04/13/24 Margoth Souza MD [address] [place] [phone] [email or web address] .[email or web address] Consulting Physician Urology 04/15/24 Ceci Nicholson MD [address] [place] [phone] [email or web address]. [facility] Consulting Physician Internal Medicine 04/09/24
[2024-05-03] MEDS ORDERED: METOCLOPRAMIDE 10 MG/2mL INJ ONE (07:11)
[2024-05-03] MEDS ORDERED: NA CHLORIDE 0.9% 100 ML ONE (07:11)
[2024-05-03 07:26] LABS: Absolute Basophils 0.1 K/uL (0-0.5); Absolute Eosinophils 0.4 K/uL (0-0.5); Absolute Lymphocytes (CBC) 1.4 K/uL (0.7-4.9); Absolute Monocytes 0.6 K/uL (0.1-1.3); Absolute Neutrophil 3.8 K/uL (1.8-8.0); Basophils % 1.4 % (0-1.3); Hematocrit 33.2 % (39.6-49.0); Lymphocytes % 22.1 % (15.3-44.8); MCH 25.4 pg (27.0-35.0); MCHC 33.1 g/dL (32.0-36.0); MCV 76.8 fL (80-100); MPV 7.1 fL (7.6-11.3); Monocytes % 9.4 % (3.3-12.3); Neutrophils % 61.1 % (41.7-73.7); Nucleated Red Blood Cells % 0.1 % (0-0); Platelets 290 thou/uL (152-406); RBC Red Blood Cell Count 4.32 M/uL (4.33-5.43); Red Cell Distribution Width 16.9 % (12.1-15.2)
[2024-05-03 07:44] LABS: Albumin 3.2 g/dL (3.4-5.0); Albumin/Globulin Ratio 0.8 (1.1-1.8); Anion Gap 8.8 mEq/L (5.0-15.0); Bilirubin Total 0.3 mg/dL (0.2-1.0); Globulin 3.9 g/dL (2.3-3.5); Potassium 3.8 mEq/L (3.5-5.1); Protein, Total 7.1 g/dL (6.4-8.2)
[2024-05-03] MEDS ORDERED: FAMOTIDINE 20 MG/2 ML VIAL IV ONE (08:00)
[2024-05-03] MEDS ORDERED: ONDANSETRON 4 MG/2 ML VIAL ONE (08:00)
[2024-05-03] MEDS ORDERED: NA CHLORIDE 0.9% 500 ML ONE (08:45)
[2024-05-03] MEDS ORDERED: PROMETHAZINE INJ 25 MG/ML AMP ONE (08:45)
[2024-05-03 09:00] LABS: Specific Gravity 1.006 (1.005-1.030); Sqamous Epithelial None Seen /HPF (None Seen); Urine Bacteria None Seen /HPF (<20); Urine Bilirubin NEGATIVE (Negative); Urine Blood Trace (Negative); Urine Clarity Clear (Clear); Urine Color Colorless (Yellow); Urine Culture Reflex Order NOT NEEDED; Urine Glucose 2+ (Negative); Urine Ketones NEGATIVE (Negative); Urine Microscopic Reflex YN ORDER UMIC; Urine Nitrite NEGATIVE (Negative); Urine Protein TRACE (Negative); Urine RBC <5 /HPF (None Seen); Urine Urobilinogen Normal (Normal); Urine WBC <5 /HPF (<5)
--- NOTE | 2024-05-03 09:49 | RAD REPORT ---
Exam:Abdomen Acute Series Clinical history: Abdominal pain FINDINGS: The lungs appear clear of acute infiltrate. 3 cm mostly linear density overlies the right chest presu mably overlying artifact. This should be confirmed clinically. Free air is not seen beneath the diaphragm. Stomach contains increased density which may be ingested contents. Remainder of the bowel gas pattern unremarkable. No significant abnormal calcification is displayed.
--- NOTE | 2024-05-03 10:18 | ER ---
Nurse's Notes [facility] Name: Zeke Mackay Sr Age: 59 yrs Sex: Male : 1965 Arrival Date: 05/03/2024 Time: 06:50 Bed 5 Private MD: Diagnosis: Hyperglycemia, unspecified;Nausea Presentation: 05/03 06:59 Coronavirus screen: Client denies travel out of the [place] in the last 14 days. nausea. ll1 Ebola Screen: Patient denies travel to an Ebola-affected area in the 21 days before illness onset. Initial Sepsis Screen: Does the patient meet any 2 criteria? No. Patient's initial sepsis screen is negative. Does the patient have a suspected source of infection? No. Patient's initial sepsis screen is negative. Risk Assessment: Do you want to hurt yourself or someone else? Patient reports no desire to harm self or others. 06:59 Method Of Arrival: Ambulatory 1 06:59 Acuity: RICKEY 3 ll1 07:00 Chief complaint: Patient states: Nausea. Onset of symptoms was May 02, 2024. 1 Triage Assessment: 06:59 General: Appears in no apparent distress. Behavior is calm, cooperative, appropriate ll1 for age. Pain: Complains of pain in abdomen. Neuro: No deficits noted. GI: Reports lower abdominal pain, upper abdominal pain, cramping, nausea. 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 - Infectious Disease History:: Denies. - Social history:: Smoking status: unknown. Screenin:15 [facility] ED Fall Risk Assessment (Adult) History of falling in the last 3 months, jl7 including since admission No falls in past 3 months (0 pts) Confusion or Disorientation No (0 pts) Intoxicated or Sedated No (0 pts) Impaired Gait No (0 pts) Mobility Assist Device Used No (0 pt) Altered Elimination No (0 pt) Score/Fall Risk Level 0 - 2 = Low Risk Oriented to surroundings, Maintained a safe environment. Abuse screen: Denies threats or abuse. Denies injuries from another. Nutritional screening: No deficits noted. Tuberculosis screening: No symptoms or risk factors identified. Assessment: 07:00 General: Appears in no apparent distress. uncomfortable, slender, Behavior is bp cooperative, appropriate for age, anxious. Pain: Complains of pain in abdomen. GI: Abdomen is non-distended. 10:40 Reassessment: PORT PACKED WITH HEPARIN. bp Vital Signs: 07:14 BP 191 / 88; Pulse 72; Resp 15; Pulse Ox 100% ; jl7 09:00 BP 198 / 84; Pulse 83; Resp 15; Pulse Ox 97% ; jl7 10:40 BP 173 / 85; Pulse 81; Resp 16; Pulse Ox 97% ; bp ED Course: 06:52 Patient arrived in ED. ra3 06:58 Arm band placed on Patient placed in an exam room, on a stretcher. ll1 06:59 Triage completed. ll1 07:01 Tad Majano MD is Attending Physician. bo1 07:03 Sue Carey RN is Primary Nurse. jl7 07:15 Patient has correct armband on for positive identification. Provided Education on: use jl7 of call ortega. 07:15 Accessed Port-a-Cath. using accessed w/ #19 Gonzalez needle, Clean \T\ dry. Dressing intact. bp Good blood return. Flushes easily. 09:42 Abdomen Acute Series XRAY In Process Unspecified. EDMS 10:40 No provider procedures requiring assistance completed. IV discontinued, intact, bp bleeding controlled, No redness/swelling at site. Pressure dressing applied. Administered Medications: 07:27 Drug: metoCLOPramide IVP 20 mg IVP once; over 15 mins Route: IVP; Site: Port-a-cath; bp 08:04 Follow up: Response: No adverse reaction; No change in condition bp 08:04 Drug: Ondansetron IVP 8 mg IVP once; over 2 minutes Route: IVP; Site: Port-a-cath; bp 08:30 Follow up: Response: No adverse reaction; Nausea unchanged jl7 08:04 Drug: Famotidine IVP 20 mg IVP once; dilute with 10 mL 0.9% NaCl; give over 2 minutes bp Route: IVP; Site: Port-a-cath; 08:30 Follow up: Response: No adverse reaction jl7 08:52 Drug: NS 0.9% IV 500 ml 500 ml IV at 1 bolus once; to be given as a bolus over 30 jl7 minutes Volume: 500 ml; Route: IV; Rate: 1 bolus; Site: Port-a-cath; 09:30 Follow up: Response: No adverse reaction; IV Status: Completed infusion; IV Intake: jl7 500ml 08:52 Drug: Promethazine IVP 25 mg IVP once Route: IVP; Site: Port-a-cath; jl7 09:10 Follow up: Response: No adverse reaction; Nausea is decreased jl7 Medication: 07:15 VIS not applicable for this client. jl7 Intake: 09:30 IV: 500ml; Total: 500ml. jl7 Outcome: 10:18 Discharge ordered by MD. [email or web address] 10:40 Discharged to home ambulatory, bp 10:40 Condition: stable 10:40 Discharge instructions given to patient, Instructed on discharge instructions, follow up and referral plans. medication usage, Demonstrated understanding of instructions, follow-up care, medications, Prescriptions given X 2, 10:43 Patient left the ED. bp Signatures: Dispatcher [employer] EDMS Sue Carey RN RN jl7 John Parrish RN RN bp Lewis, Lynsay, RN RN levon1 Cherelle Meléndez ra3 Tad Majano MD MD bo1
--- NOTE | 2024-05-03 10:18 | EDPHYS ---
Physician Documentation [facility] Name: Zeke Mackay Sr Age: 59 yrs Sex: Male : 1965 Arrival Date: 05/03/2024 Time: 06:50 Bed 5 Private MD: ED Physician Tad Majano HPI: 05/03 07:05 This 59 yrs old Male presents to ER via Ambulatory with complaints of Nausea. bo1 07:05 The patient presents to the emergency department with nausea. Onset: The bo1 symptoms/episode began/occurred gradually, yesterday. Possible causes: Recent dx of cancer since Dec. Pt states he is placed on a "pink liquid" that isn't working. New port placed in the right chest. Due for chemo tx starting on Saturday. 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 - Infectious Disease History:: Denies. - Social history:: Smoking status: unknown. ROS: 07:13 Constitutional: Negative for fever, chills bo1 07:13 Constitutional: Negative for 07:13 Cardiovascular: Negative for chest pain, 07:13 Respiratory: Negative for shortness of breath, 07:13 Abdomen/GI: Positive for nausea, Negative for vomiting, diarrhea, 07:13 MS/extremity: Negative for pain, swelling, 07:13 Skin: Positive for Recent Port placed at the right upper chest - due to be used for chemo tomorrow, 07:13 All other systems are negative, Exam: 07:15 Constitutional: This is a well developed, well nourished patient who is awake, alert, bo1 and in mild acute distress. 07:15 Constitutional: The patient appears alert, awake, uncomfortable, From the nausea, no retching 07:15 Head/face: Exam is negative for acute changes, rash, 07:15 Neck: External neck: is normal, no acute changes, 07:15 Chest/axilla: Inspection: normal, no acute changes, Port site is good, no rash/drainage. Protective dressing in place. Incision site looks good., 07:15 Cardiovascular: Rate: normal, Rhythm: regular, Pulses: no pulse deficits are appreciated, 07:15 Respiratory: the patient does not display signs of respiratory distress, Respirations: normal, Breath sounds: are clear throughout, 07:15 Abdomen/GI: Inspection: abdomen appears normal, Bowel sounds: diminished, 07:15 Skin: no rash present. Warm and dry. Vital Signs: 07:14 BP 191 / 88; Pulse 72; Resp 15; Pulse Ox 100% ; jl7 09:00 BP 198 / 84; Pulse 83; Resp 15; Pulse Ox 97% ; jl7 10:40 BP 173 / 85; Pulse 81; Resp 16; Pulse Ox 97% ; bp MDM: 07:01 Medical Screening Exam initiated bo1 10:16 Differential diagnosis: Nonspecific abd pain, gastritis, viral gastroenteritis, Post dx bo1 of stage 2/3 cancer causing nausea. Data reviewed: vital signs, lab test result(s), radiologic studies, plain films. ED course: Pt is feeling better - Phenegan to be Rx'ed. 05/03 07:07 Order name: CBC with Diff; Complete Time: 09:03 bo1 12 07:07 Order name: CMP; Complete Time: 09:03 bo1 15 07:07 Order name: Lipase; Complete Time: 09:03 bo1 15 07:07 Order name: Urinalysis w/ reflexes; Complete Time: 09:03 bo1 15 09:08 Order name: Glucose, Ancillary Testing; Complete Time: 09:10 EDMS 12 08:40 Order name: Abdomen Acute Series XRAY; Complete Time: 09:54 bo1 05/03 07:07 Order name: IV Saline Lock; Complete Time: 07:27 bo1 05/03 07:07 Order name: Labs collected and sent; Complete Time: 07:27 bo1 Administered Medications: 07:27 Drug: metoCLOPramide IVP 20 mg IVP once; over 15 mins Route: IVP; Site: Port-a-cath; bp 08:04 Follow up: Response: No adverse reaction; No change in condition bp 08:04 Drug: Ondansetron IVP 8 mg IVP once; over 2 minutes Route: IVP; Site: Port-a-cath; bp 08:30 Follow up: Response: No adverse reaction; Nausea unchanged jl7 08:04 Drug: Famotidine IVP 20 mg IVP once; dilute with 10 mL 0.9% NaCl; give over 2 minutes bp Route: IVP; Site: Port-a-cath; 08:30 Follow up: Response: No adverse reaction jl7 08:52 Drug: NS 0.9% IV 500 ml 500 ml IV at 1 bolus once; to be given as a bolus over 30 jl7 minutes Volume: 500 ml; Route: IV; Rate: 1 bolus; Site: Port-a-cath; 09:30 Follow up: Response: No adverse reaction; IV Status: Completed infusion; IV Intake: jl7 500ml 08:52 Drug: Promethazine IVP 25 mg IVP once Route: IVP; Site: Port-a-cath; jl7 09:10 Follow up: Response: No adverse reaction; Nausea is decreased jl7 Disposition Summary: 05/03/24 10:18 Discharge Ordered Notes: Location: Home bo1 Problem: new bo1 Symptoms: have improved bo1 Condition: Stable bo1 Diagnosis - Hyperglycemia, unspecified bo1 - Nausea bo1 Followup: bo1 - With: Private Physician - When: Tomorrow - Reason: Recheck today's complaints, Continuance of care Discharge Instructions: - Discharge Summary Sheet bo1 - Hyperglycemia bo1 - Nausea, Adult bo1 Forms: - Medication Reconciliation Form bo1 - Antibiotic Education bo1 - Prescription Opioid Use bo1 - Patient Portal Instructions bo1 - Leadership Thank You Letter bo1 Prescriptions: - promethazine 50 mg Rectal suppository - insert 1 suppository RECTAL route every 6 hours as needed for nausea; 5 bo1 suppository; Refills: 0, Product Selection Permitted - promethazine 25 mg Oral Tablet - take 1 tablet ORAL route every 6 hours As needed; 20 tablet; Refills: 0, bo1 Product Selection Permitted Signatures: Dispatcher [employer] Sue Antunez RN RN jl7 John Parrish RN RN bp Jesusita De La Paz RN RN ll1 Tad Majano MD MD bo1
[2024-05-03] MEDS ORDERED: HEPARIN 500 UNIT/5 ML SYR IV ONE (10:31)
[2024-05-03 10:56] VITALS: O2SAT 97
[2024-05-03 10:58] VITALS: BP 173/85
== END 2024-05-03 10:43 | disposition home or self-care (01) ==
LOC: ER 06:50
DX: E11.65 Type 2 diabetes mellitus with hyperglycemia (principal); I10 Essential (primary) hypertension; C64.1 Malignant neoplasm of right kidney, except renal pelvis; Z95.1 Presence of aortocoronary bypass graft
CPT/HCPCS: 96361; 85025; 81001; 36415; 82947; 83690; 80053; 74022; 96375; 96374; 99284; J2550; J2765; J1642; J2405; J7040

== ENCOUNTER 2024-05-23 03:27 | Emergency (ER) | payer OTHER ==
--- OUTSIDE RECORDS SUMMARY | 2024-05-23 03:34 | XMS REPORT | Clinical Summary ---
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 09/11/20 24 Active metoprolol tartrate (LOPRESSOR) 25 mg [...] tablet (75 mg) by mouth daily. 01/20/20 24 Active prochlorperazi ne (Compazine) 10 mg tabletIndicati ons:Adenocarci noma of stomach Take 1 tablet (10 mg) by mouth every 6 (six) hours as needed for nausea or vomiting. 30 tablet 2 04/09/20 24 Active oxyCODONE (ROXICODONE) 5 mg/5 mL solutionIndica tions:Adenocar cinoma of stomach Take 5 mL (5 mg) by mouth every 6 (six) hours as needed for moderate pain or severe pain (pain not relieved by Tylenol). 60 mL 3:43 PM PROGRAM CONSULTANT 04/15/20 24 Active Additional Information Patient not taking.Reason: No longer taking, Reported on 04/30/2024 amLODIPine (NORVASC) 5 mg tablet DAILY 02/28/20 24 Active metFORMIN (GLUCOPHAGE-XR ) 500 mg 24 hr tablet Take 2 tablets every day by oral route with meals for 30 days. 12/12/19 Active sucralfate (CARAFATE) 100 mg/mL suspension BEFORE MEALS AND AT BEDTIME 02/29/20 24 Active OLANZapine (ZyPREXA) 2.5 mg tabletIndicati ons:Adenocarci noma of stomach Take 1 tablet (2.5 mg) by mouth at bedtime. 30 tablet 1 05/04/20 24 Active promethazine (PHENERGAN) 25 mg tabletIndicati ons:Adenocarci noma of stomach Take 1 tablet (25 mg) by mouth every 6 (six) hours as needed for nausea or vomiting. 60 tablet 2 05/04/20 24 Active ondansetron (Zofran) 8 mg tabletIndicati ons:Adenocarci noma of stomach Take 1 tablet (8 mg) by mouth every 8 (eight) hours as needed for nausea or vomiting. 30 tablet 2 05/04/20 24 Active fluconazole (Diflucan) 40 mg/mL suspensionIndi cations:Candid al esophagitis Take 10 mL (400 mg) by mouth daily for 1 day, THEN 5 mL (200 mg) daily for 13 days. 75 mL 05/23/19 25 025 Active dapagliflozin propanediol (Farxiga) 10 mg tablet Take 1 tablet (10 mg) by mouth daily. 024 Discontinued tadalafil (CIALIS) 5 mg tablet Take 1 tablet (5 mg) by mouth daily. 08/14/19 24 024 Discontinued dexAMETHasone (DECADRON) 2 mg tabletIndicati ons:Adenoma, [...] tablet 4 1:52 PM CDT 01/03/20 24 024 Discontinued(S top Taking at Discharge) metoclopramide (Reglan) 5 mg tabletIndicati ons:Adenocarci noma, NOS of stomach, NOS,Nausea Take 1 tablet (5 mg) by mouth 4 (four) times a day before meals and nightly for 28 days. 56 tablet 1 04/14/20 24 024 Discontinued Active Problems Patient Care Coordination No te Formatting of this note migh t be different from the original. The patient does *NOT* use MYCHART, please call him with any updates. He will need a printed schedule as well during his follow ups. 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 01/02/2024 04/14/2024 Diabetic ketoacidosis 2023 Overview (01/01/2024): Hospitalized locally 12/03/2023-12/06/2023 Encounters Date Type Department Care Team Description 05/22/2024 Telephone [facility] - Gastroenterology, Hepatology & Nutrition [facility] Main [facility], 7th [place] [address] Arnaldo Araujo PA-C 05/22/2024 Orders Only Gastro[facility] - Gastroenterology, Hepatology & Nutrition [address] [facility] Main [facility], 7th [place] [address] Arnaldo Araujo PA-C Candidal esophagitis (Primary Dx) 05/20/2024 4:30 PM PROGRAM CONSULTANT - 05/20/2024 11:59 PM PROGRAM CONSULTANT Hospital Encounter Ambulatory Treatment Center - Main Building [address] [facility] Main [facility], 2nd Floor, [place] [address] Marianela Hutchinson MD Lewandowski, Teresa M, RN Adenocarcinoma of stomach Discharge Disposition: Home 05/19/2024 12:44 PM PROGRAM CONSULTANT Anesthesia Event [facility] [address] [place] [address], 5th [place] [address] Maurice Ferrera MD, Dariela Patterson [facility] 05/19/2024 12:00 PM PROGRAM CONSULTANT - 05/19/2024 1:10 PM PROGRAM CONSULTANT Surgery [facility] [address] [place] [address], 5th [place] [address] Brandon Alcala MD UPPER GASTROINTESTINAL ENDOSCOPY OF ESOPHAGUS, STOMACH, OR DUODENUM ANDJ ADJACENT STRUCTURES, WITH ENDOSCOPIC ULTRASOUND EXAMINATION 05/19/2024 11:17 AM PROGRAM CONSULTANT - 05/19/2024 2:49 PM PROGRAM CONSULTANT Hospital Encounter Endoscopy Center [address] [place] [address], 5th [place] [address] Brandon Alcala MD Adenocarcinoma of stomach Discharge Disposition: Home 05/19/2024 Travel 05/18/2024 1:00 PM PROGRAM CONSULTANT Infusion [facility] [address] [place] [address] [facility], [place] 6 [place] [address] Marianela Hutchinson MD Biscocho, Alexa, RN Adenocarcinoma of stomach (Primary Dx) 05/18/2024 12:20 PM PROGRAM CONSULTANT Follow-Up [facility]astro[facility] [address] [place] [address], 7th [place] [address] Marianela Hutchinson MD Adenocarcinoma, NOS of stomach, NOS 05/18/2024 11:00 AM PROGRAM CONSULTANT POEM Appointments Perioperative [facility] [address] [place] [address], 6th [place] [address] Marianela Hutchinson MD 05/18/2024 10:32 AM PROGRAM CONSULTANT - 05/18/2024 11:59 PM PROGRAM CONSULTANT Hospital Encounter Diagnostic [facility] [address] [place] [address], [place] [address] Gillian Gomez PA-C Adenocarcinoma, NOS of stomach, NOS Discharge Disposition: Home 05/18/2024 Orders Only [facility] [address] [place] [address], 7th [place] [address] Marianela Hutchinson MD Adenocarcinoma of stomach (Primary Dx) 05/18/2024 Orders Only [facility] [address] [place] [address], 7th [place] [address] Radha Castellon, [facility] Adenocarcinoma of stomach (Primary Dx); Iron deficiency anemia, not otherwise specified 05/18/2024 Travel 05/15/2024 11:59 PM PROGRAM CONSULTANT Anesthesia Event [facility] [address] [place] [address], 6th [place] [address] Eri Lynne, RN 05/06/2024 5:30 PM PROGRAM CONSULTANT Infusion [facility] [place] [address] [facility], 8th [place] [address] Marianela Hutchinson MD Pagara, Leni S RN Adenocarcinoma of stomach 05/04/2024 12:36 PM PROGRAM CONSULTANT - 05/04/2024 11:59 PM PROGRAM CONSULTANT Hospital Encounter Ambulatory Treatment [facility] - [address], 2nd Floor, Elev[place] [address] Gillian Gomez PA-C Jo, Edifia Sungsoon, ARTURO Adenocarcinoma of stomach (Primary Dx) Discharge Disposition: Home 05/04/2024 12:20 PM PROGRAM CONSULTANT Follow-Up [facility] [address] [place] [address], 7th [place] [address] Marianela Hutchinson MD Adenocarcinoma, NOS of stomach, NOS 05/04/2024 11:10 AM PROGRAM CONSULTANT - 05/04/2024 12:35 PM PROGRAM CONSULTANT Hospital Encounter [facility] [address] [place] [address], [place] [address] Gillian Gomez PA-C Adenocarcinoma, NOS of stomach, NOS; Adenocarcinoma of stomach Discharge Disposition: Home 05/04/2024 Orders Only [facility] [address] [place] [address], 7th [place] [address] Marianela Hutchinson MD Adenocarcinoma of stomach (Primary Dx) 05/04/2024 Orders Only Gastro[facility] Center [address] [place] [address] Main [facility], 7th [place] [address] Radha Castellon, [facility] Adenocarcinoma of stomach (Primary Dx) 05/04/2024 Travel 04/30/2024 Orders Only [facility] - Surgical Oncology [address] [place] [address], 7th [place] [address] Mary Kay Santamaria APRN Adenocarcinoma of stomach (Primary Dx); Paroxysmal atrial fibrillation; Hyperlipidemia, not otherwise specified; Type 2 diabetes mellitus with hyperglycemia 04/27/2024 8:05 PM PROGRAM CONSULTANT Ancillary Procedure [facility] [address] [place] [address] Cancer 04/27/2024 8:00 PM PROGRAM CONSULTANT Ancillary Procedure [facility] [address] [place] [address] Cancer 04/27/2024 Orders Only [facility] [address] [place] [address], 7th [place] [address] Donnell Van Adenocarcinoma of stomach (Primary Dx) 04/24/2024 Documentation Vascular Access and Procedures Center [address] [facility], 8th [place] [address] Mary Kya Santamaria APRN 04/24/2024 Orders Only [facility] - Surgical Oncology [address] [place] [address], 7th [place] [address] Mary Kay Santamaria APRN Adenocarcinoma, NOS of stomach, NOS (Primary Dx) 04/24/2024 Telephone [facility] - Surgical Oncology [address] [place] [address] Main [facility], 7th [place] [address] Mary Kay Santamaria APRN 04/22/2024 Lab Requisition [facility] Sincere Moralez MD Jain, Shilpa, MD 04/21/2024 Orders Only [facility] [address] [place] [address] Main Bldg, 7th [place] [address] Gillian Gomez PA-C Adenocarcinoma, NOS of stomach, NOS (Primary Dx); Adenocarcinoma of stomach 04/16/2024 Telephone [facility] [address] [place] [address] 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, 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 Call 04/15/2024 10:09 AM PROGRAM CONSULTANT Anesthesia Event MAIN OR [address] [place] [address] Meenakshi Crowe MD Miller, Wendy, [facility] 04/15/2024 10:05 AM PROGRAM CONSULTANT - 04/15/2024 1:25 PM PROGRAM CONSULTANT Surgery MAIN OR [address] [place] [address] John Fong MD ROBOTIC ASSISTED SURGICAL LAPAROSCOPY 04/15/2024 7:32 AM PROGRAM CONSULTANT - 04/15/2024 11:50 PM PROGRAM CONSULTANT Hospital Encounter MAIN OR [address] [place] [address] John Fong MD Adenocarcinoma of stomach (Primary Dx) Discharge Disposition: Home 04/15/2024 Travel 04/14/2024 2:30 PM PROGRAM CONSULTANT Consult [facility] - Surgical Oncology [address] [place] [address] Main dg, 7th [place] [address] Gillian Gomez PA-C Badgwell, Brian, MD Adenocarcinoma, NOS of stomach, NOS (Primary Dx); Nausea 04/14/2024 Documentation [facility] - Surgical Oncology [address] [place] [address] Main dg, 7th [place] [address] John Fong MD 04/13/2024 3:00 PM PROGRAM CONSULTANT Consult [facility] [address] [place] [address] Main Bldg, 7th [place] [address] Marianela Hutchinson MD Mass of stomach (Primary Dx) 04/13/2024 2:02 PM PROGRAM CONSULTANT Anesthesia Event [facility] Management Center [address] [place] [address], 6th [place] [address] Curtis Moctezuma PA 04/12/2024 8:22 AM PROGRAM CONSULTANT - 04/12/2024 3:42 PM [facility] Emergency MAIN P06B [address] [place] [address] Nghia Zhu MD Elsayem, Ahmed, MD Nausea and vomiting (Primary Dx); Gastric cancer; Pancreatitis Discharge Disposition: Left Against Medical Advice 04/12/2024 Travel 04/09/2024 8:25 PM PROGRAM CONSULTANT Ancillary Procedure [facility] [address] [place] [address] Margoth Souza MD Cancer 04/09/2024 8:20 PM PROGRAM CONSULTANT Ancillary Procedure [facility] [address] [place] [address] Margoth Souza MD Cancer 04/09/2024 8:15 PM PROGRAM CONSULTANT Ancillary Procedure [facility] [address] [place] [address] Margoth Souza MD Cancer 04/09/2024 8:10 PM PROGRAM CONSULTANT Ancillary Procedure [facility] [address] [place] [address] Margoth Souza MD Cancer 04/09/2024 8:05 PM PROGRAM CONSULTANT Ancillary Procedure [facility] [address] [place] [address] Margoth Souza MD Cancer 04/09/2024 8:00 PM PROGRAM CONSULTANT Ancillary Procedure [facility] [address] [place] [address] Margoth Souza MD Cancer 04/09/2024 10:48 AM PROGRAM CONSULTANT - 04/09/2024 11:59 PM PROGRAM CONSULTANT Hospital Encounter Diagnostic [facility] [address] [place] [address], [place] [address] Ceci Nicholson MD Encounter for other preprocedural examination; Atherosclerosis of coronary 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, not otherwise specified; 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 Discharge Disposition: Home 04/09/2024 10:00 AM PROGRAM CONSULTANT POEM Appointments Per[facility] Management [facility] [address] [place] [address], 6th [place] [address] Margoth Souza MD 04/09/2024 9:56 AM PROGRAM CONSULTANT - 04/09/2024 10:47 AM PROGRAM CONSULTANT Hospital Encounter [facility] - Cardiology [address] [place] [address], 2nd [place] [address] Ceci Nicholson MD Adenocarcinoma of stomach; Hyperlipidemia, not otherwise specified; Encounter for other preprocedural examination; Atherosclerosis of coronary 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, not otherwise specified Discharge Disposition: Home 04/09/2024 9:00 AM PROGRAM CONSULTANT Consult Perioperative Evaluation and Management [address] [place] [address], [facility] [place] [address] Mary Kay Santamaria APRN Misoi, Mercy W, MD Encounter for other preprocedural examination (Primary Dx); Adenocarcinoma of stomach; Paroxysmal atrial fibrillation; Hypertension; 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; Hyperlipidemia, not otherwise specified; Current use of 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; Atherosclerosis of coronary 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, not otherwise specified 04/09/2024 Travel 04/08/2024 Prep for Surgery [facility] - Surgical Oncology [address] [place] [address], [facility] [place] [address] Mary Kay Santamaria APRN Adenocarcinoma of stomach (Primary Dx); Mass of stomach 04/08/2024 Orders Only [facility] - Surgical Oncology [address] [place] [address], [facility] [place] [address] Mary Kay Santamaria APRN Adenocarcinoma of stomach (Primary Dx); Paroxysmal atrial fibrillation; Hypertension; 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; Hyperlipidemia, not otherwise specified; Current use of 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 04/08/2024 Orders Only [facility] [address] [place] [address], 7th [place] [address] Gillian Gomez PA-C Adenocarcinoma, NOS of stomach, NOS (Primary Dx) 04/06/2024 Orders Only [facility] [address] [place] [address], 7th [place] [address] Roberto Poole PA 04/06/2024 Orders Only [facility] [address] [place] [address], [facility] Floor [place] [address] Roberto Poole PA Mass of stomach (Primary Dx) 04/06/2024 Orders Only [facility] [address] [place] [address], [facility] [place] [address] Roberto Poole PA Mass of stomach (Primary Dx) 04/06/2024 [facility] [address] [place] [address], [address] [place] [address] Anais Meng RN 02/11/2024 Travel 02/10/2024 3:30 PM CDT [facility] [address] [place] [address], [address] [place] [address] Margoth Souza MD Renal mass (Primary Dx) 01/02/2024 7:15 AM CDT Ancillary Procedure MAIN OR [address] [place] [address] Margoth Souza MD 01/02/2024 7:00 AM CDT - 01/02/2024 11:40 AM CDT Surgery MAIN OR [address] [place] [address] Margoth Souza MD ROBOTIC ASSISTED PARTIAL NEPHRECTOMY 01/02/2024 6:58 AM CDT Anesthesia Event MAIN OR [address] [place] [address] Alonzo Liu MD, Parisa Christopher CRNA 01/02/2024 5:04 AM CDT - 01/03/2024 5:05 PM CDT Hospital Encounter MAIN P09B [address] [place] [address] Margoth Souza MD Renal mass (Primary Dx) Discharge Disposition: Home 01/02/2024 Travel 12/31/2023 1:04 PM CDT - 12/31/2023 11:59 PM CDT Hospital Encounter Main CT IMAGING [address] [place] [address], 3rd [place] [address] Margoth Souza MD Renal mass Discharge Disposition: Home 12/31/2023 8:00 AM CDT Consult Endocrine Center [address] [place] [address], [address] [place], [place] [address] [address] Nakia Kirby APRN Khan, Sonya, MD Type 2 diabetes mellitus with hyperglycemia [E11.65] (Primary Dx); Pre-surgery evaluation 12/30/2023 9:30 AM CDT Office Visit [facility] [address] [place] [address], 7th [place] [address] Margoth Souza MD Renal mass 12/30/2023 Travel 12/30/2023 Telephone Endocrine Center [address] [place] [address], [address] [place], [place] [address]ator [place] [phone] Winnie Archibald, ARTURO Appointment (Cannot get internet-phone broke) 12/30/2023 Orders Only [facility] [address] [place] [address], 7th [place] [address] Roberto Poole PA Renal mass (Primary Dx) 12/29/2023 Orders Only Endocrine Center [address] [place] [address], [address] [place], [place] [address]ator [place] [phone] Veronica Del Castillo APRN 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); Endocrine/metabolic screening; Renal cell carcinoma <Left side> 12/25/2023 8:36 AM CDT Anesthesia Event [facility] [address] [place], [place] [address]ator [place] [phone] Lien Antonio, RN 12/23/2023 10:30 AM CDT Consult Perioperative Evaluation and Management [address] [place] [address], 6th [place] [address] Margoth Souza MD Oh, Jeong, MD Encounter for other preprocedural examination (Primary Dx); Renal mass; Hyperlipidemia, not otherwise specified 12/23/2023 9:00 AM CDT POEM Appointments [facility] [address] [place] [address], [address] [place], [place] [address] [address] Margoth Souza MD Pre-surgery evaluation (Primary Dx) 12/23/2023 8:45 AM CDT - 12/23/2023 11:59 PM CDT Hospital Encounter [facility] [address] [place], [place] [phone] Margoth Souza MD Renal mass Discharge Disposition: Home 12/23/2023 Travel 12/09/2023 9:33 AM CDT - 12/09/2023 11:59 PM CDT Hospital Encounter [facility] [address] [place] [address] Veronica Del Castillo APRN 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; Endocrine/metabolic screening Discharge Disposition: Home 12/09/2023 8:30 AM CDT Consult Endocrine Center [address] [place] [address], [address] [place], [place] [address] [address] Mary Jane Cassidy MD 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); Endocrine/metabolic screening; Renal cell carcinoma <Left side> 12/09/2023 Travel 10/23/2023 Orders Only [facility] [address] [place] [address], 7th [place] [address] Roberto Poole PA Renal mass (Primary Dx); Adrenal mass 10/03/2023 9:30 AM CDT - 10/03/2023 11:59 PM CDT Hospital Encounter Interventional Radiology [address] [place] [address], 4th [place] [address] Shazia Arriaza MD McRae, Stephen, MD Renal mass Discharge Disposition: Home 10/03/2023 8:30 AM CDT - 10/03/2023 9:29 AM CDT Hospital Encounter [facility] [address] [place] [address] Margoth Souza MD Renal mass Discharge Disposition: Home 10/03/2023 Travel 10/02/2023 8:24 AM CDT - 10/02/2023 11:59 PM CDT Hospital Encounter Interventional Radiology [address] [place] [address], 4th [place] [address] Margoth Souza MD Ho, Thanh-Trang D, PA-C Encounter for other preprocedural examination (Primary Dx); Renal mass; 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 Discharge Disposition: Home 10/02/2023 Travel 09/24/2023 7:46 AM CDT - 09/24/2023 11:59 PM CDT Hospital Encounter [facility] [address] [place] [address] Roberto Poole PA Adrenal mass Discharge Disposition: Home 09/20/2023 Orders Only [facility] [address] [place] [address], 7th [place] [address] Roberto Poole PA Adrenal mass (Primary Dx) 09/19/2023 11:45 AM CDT Ancillary Procedure X-Ray Outpatient Center [address] [place] [address], 7th [place] [address] Shazia Arriaza MD Renal mass 09/19/2023 9:20 AM CDT - 09/19/2023 11:59 PM CDT Hospital Encounter [facility] [address] [place] [address] Shazia Arriaza MD Adenoma, NOS of adrenal gland, NOS <Left> Discharge Disposition: Home 09/19/2023 Orders Only Interventional Radiology [address] [place] [address], 4th [place] [address] Abilio Ng PA-C Renal mass (Primary Dx) 09/19/2023 Travel 09/19/2023 Telephone MD [facility] [address] [place] [address] Main Reeslizeth Samuel ANA 09/16/2023 4:00 PM CDT - 09/16/2023 11:59 PM CDT Hospital Encounter [facility] [address] [place] [address] Shazia Arriaza MD Renal mass; Adrenal mass Discharge Disposition: Home 09/16/2023 2:00 PM CDT Office Visit [facility] [address] [place] [address], 7th [place] [address] Margoth Souza MD Renal mass (Primary Dx); Adrenal mass; Adenoma, NOS of adrenal gland, NOS <Left>; 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 09/16/2023 12:30 PM CDT NPR MDA PATIENT ACCESS 09/16/2023 Travel 08/08/2023 8:00 PM CDT Ancillary Procedure [facility] [address] [place] [address] Margoth Souza MD Cancer 08/08/2023 6:40 AM CDT Ancillary Procedure [facility] [address] [place] [address] Margoth Souza MD Cancer after 05/24/2023 Surgical History Surgery Date Site/Laterality Comments TOE AMPUTATION x2, 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, 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 APPENDECTOMY 05/20/1973 - 05/19/1974 Open WRIST SURGERY Left HAND SURGERY Right HIP ARTHRODESIS W/ ILIAC CRE ST BONE GRAFT Bilateral For hand surgeries CERVICAL SPINE SURGERY C3-6 fusion, x2 NH LAPAROSCOPY SURG PARTIAL NEPHRECTOMY 01/02/2024 Abdomen/Left Procedure: ROBOTIC ASSISTED PARTIAL NEPHRECTOMY; Surgeon: Margoth Souza MD; Location: MAIN OR; Service: UROLOGY CHG ULTRASONIC GUIDANCE INTRAOPERATIVE 01/02/2024 Left Procedure: INTROPERATIVE ULTRASOUND - PERFORMED BY SURGEON; Surgeon: Margoth Souza MD; Location: MAIN OR; Service: UROLOGY CORONARY ARTERY BYPASS GRAFT 01/07/2024 NH LAPS ABD PRTM&OMENTUM DX W/WO SPEC BR/WA SPX 04/15/2024 Abdomen/N/A Procedure: ROBOTIC ASSISTED SURGICAL LAPAROSCOPY; Surgeon: John Fong MD; Location: MAIN OR; Service: SURG ONC - GASTRIC/HIPEC Medical devices from this surgery are in the Medical Devices section. CHG FLUORO CENTRAL VENOUS AC CESS DEV PLACEMENT 04/15/2024 Neck/N/A Procedure: FLUORO GUIDANCE [...] surgery are in the Medical Devices section. NH INSJ TUNNELED CTR VAD W/S UBQ PORT AGE 5 YR/> 04/15/2024 Neck/N/A Procedure: PORT-A-CATH PLACEMENT; Surgeon: John Fong MD; Location: MAIN OR; Service: SURG ONC - GASTRIC/HIPEC Medical devices from this surgery are in the Medical Devices section. [place] ESOPHAGOGASTRODUODENOSCOP Y US SCOPE W/ADJ STRXRS 05/19/2024 Esophagus/N/A Procedure: UPPER GASTROINTESTINAL ENDOSCOPY OF ESOPHAGUS, STOMACH, OR DUODENUM ANDJ ADJACENT STRUCTURES, WITH ENDOSCOPIC ULTRASOUND EXAMINATION; Surgeon: Brandon Alcala MD; Location: MAIN ENDOSCOPY; Service: GASTROENTEROLOGY Medical History Medical History Date Comments Neuropathy Hyperlipidemia Hypertension Gastro-esophageal reflux dis ease without esophagitis Osteomyelitis Renal cell carcinoma <Left side> Diabetic ketoacidosis Hospitaliz ed locally 12/03/2023-12/06/2023 Type 2 diabetes mellitus [...] on file Legal Sex Male 11:38 AM PROGRAM CONSULTANT Gender Identity Not on file Sexual Orientation Not on file Occupation Industry Job Start Date Job End Date retired from [employer] Not on file N ot on file Not on file Travel History Travel Start Travel End [place] 04/12/2024 04/12/2024 Obstetrics History Last Filed Vital Signs Vital Sign Reading Time Taken Comments Blood Pressure 125/73 05/20/2024 4:56 PM PROGRAM CONSULTANT Pulse 79 05/20/2024 4:56 PM PROGRAM CONSULTANT Temperature 36.7 C (98.1 F) 05/20/2024 4:56 PM CS T Respiratory Rate 18 05/20/2024 4:56 PM PROGRAM CONSULTANT Oxygen Saturation 99% 05/20/2024 4:56 PM PROGRAM CONSULTANT Inhaled Oxygen Concentration - - Weight 84 kg (185 lb 3 oz) 05/20/2024 4:56 PM CS T Height 188 cm (6' 2") 05/19/2024 11:53 AM PROGRAM CONSULTANT Body Mass Index 23.78 05/19/2024 11:53 AM PROGRAM CONSULTANT Plan of Treatment Upcoming Encounters Date Type Department Care Team (Latest Contact Info) Description 06/01/2024 11:30 AM PROGRAM CONSULTANT Appointment [facility] [address] [place] [address], [place] [address] Marianela Hutchinson MD [address] [place] [phone] [email or web address] 06/01/2024 1:00 PM PROGRAM CONSULTANT Infusion [facility] [place] [facility] [address] [facility] [place], Floor 6 [place] [address] Marianela Hutchinson MD [address] [place] [phone] [email or web address] 06/03/2024 5:30 PM PROGRAM CONSULTANT Infusion [facility] - [facility] [address] [facility], 8th [place] [address] Marianela Hutchinson MD [address] [place] [phone] [email or web address] 06/11/2024 2:00 PM PROGRAM CONSULTANT Telemedicine [facility] - Surgical Oncology [address] [place] [address], 7th [place] [address] John Fong MD [address] [place] [phone] [email or web address] 06/15/2024 11:30 AM PROGRAM CONSULTANT Appointment [facility] [address] [place] [address], [place] [address] Marianela Hutchinson MD [address] [place] [phone] [email or web address] 06/15/2024 12:40 PM PROGRAM CONSULTANT Follow-Up [facility] [address] [place] [address], 7th [place] [address] Marianela Hutchinson MD [address] [place] [phone] [email or web address] 06/15/2024 1:30 PM PROGRAM CONSULTANT Infusion [facility] [address] [facility], 8th [place] [address] Marianela Hutchinson MD [address] [place] [phone] [email or web address] 07/15/2024 10:15 AM PROGRAM CONSULTANT Appointment [facility] [address] [place] [address], [place] [address] Mary Kay Santamaria APRN [address] [place] [phone] [email or web address] 07/15/2024 11:15 AM PROGRAM CONSULTANT Appointment Cardiopulmonary Center [address] [place] [address], 6th [place] [address] Mary Kay Santamaria, TRAVEL SERVICE CONSULTANT [address] [place] [address] [email or web address] 07/15/2024 12:15 PM PROGRAM CONSULTANT Appointment Main CT IMAGING [address] [facility] Main Bldg, 3rd [place] [address] Mary Kay Santamaria, TRAVEL SERVICE CONSULTANT [address] [place] [address] [email or web address] 07/16/2024 9:30 AM PROGRAM CONSULTANT Office Visit [facility] - Surgical Oncology [address] [place] [address] Main [facility], 7th [place] [address] John Fong MD [address] [place] [phone] [email or web address] 07/16/2024 10:00 AM PROGRAM CONSULTANT Nutrition Clinical Nutrition For your Nutrition appointment location directions please call: Mary Kay Santamaria, FRANK [facility] [place] [address] [email or web address] [email or web address] Ng, RD [address] [place] [address] [address] [place] [address] [email or web address] 07/24/2024 7:00 AM PROGRAM CONSULTANT Hospital Encounter MAIN OR [facility]5 [place] [address] John Fong MD [address] [place] [phone] [email or web address] 07/24/2024 7:00 AM PROGRAM CONSULTANT - 07/24/2024 2:05 PM PROGRAM CONSULTANT Surgery MAIN OR [facility]5 [place] [address] John Fong MD [address] [place] [phone] [email or web address] [email or web address] ASSISTED SUBTOTAL [place]OM[place] [id number] 02/05/2025 10:45 AM CDT Lab Genitourinary Cancer Center [address] [place] [address], [facility] [address] Margoth Souza MD [address] [place] [phone] [email or web address] 02/05/2025 11:15 AM CDT Ancillary Procedure X-Ray Outpatient Center [address] [place] [address], [address] [place] [address] Margoth Souza MD [address] [place] [phone] [email or web address] 02/05/2025 12:20 PM CDT Ancillary Procedure CT Imaging [address] [place] [address], [address] [place] [address] Margoth Souza MD [address] [place] [phone] [email or web address] 02/08/2025 2:30 PM CDT Telemedicine Genitourinary Cancer Center [address] [place] [address], [facility] Floor [facility] [address] Margoth Souza MD [address] [place] [phone] [email or web address] Procedures Name Priority Associated Diagnoses Date/Ti me ROBOTIC ASSISTED [place] [id number] Adenocarcinoma of stomach 07/24/2024 7:00 AM PROGRAM CONSULTANT PARTIAL DISTAL GASTRECTOMY WITH FELIZ-EN-Y RECONSTRUCTION Adenocarcinoma of stomach 07/24/2024 7:00 AM PROGRAM CONSULTANT Health Maintenance Due Date Last Done Comments COVID-19 Vaccine (#1) 01/09/1969 Pneumococcal Vaccine: Pediat rics (0 to 5 Years) and At-Risk Patients (6 to 64 Years) (1 of 2 - PCV) 01/09/1970 01/09/1975 Influenza Vaccine (#1) 2024 08/04/2018 Medical Devices Implanted Type Area Casino Porter Device Identifier Shelf Expiration Date Model / Serial / Lot Slade Muhammadim 6fr - [id number] Implanted:Qty: 1 on 04/15/2024 by John Fong MD at [facility] Implant Right: Neck BARD ACCESS SYSTEMS 12/17/2024 [id number] / / [id number] Procedures Procedure Name Priority Date/Time Associated Diagnosis Comments POC GLUCOSE SCREEN Routine 05/19/2024 1:52 PM PROGRAM CONSULTANT PATHOLOGY BIOPSY INTERPRETATION Routine 05/19/2024 1:10 PM PROGRAM CONSULTANT Adenocarcinoma of stomach NH ESOPHAGOGASTRODUODENOSCOP Y US SCOPE W/ADJ STRXRS 05/19/2024 12:34 PM PROGRAM CONSULTANT Adenocarcinoma of stomach Case Notes 04/24- WAITING FOR TRIAGE TO NM FOR 05/01- 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[employer] Call Completed 04/30/24ad laproscopy on 04/15/24 POC GLUCOSE SCREEN Routine 05/19/2024 12:21 PM PROGRAM CONSULTANT .CBC Routine 05/18/2024 10:55 AM PROGRAM CONSULTANT Adenocarcinoma, NOS of stomach, NOS CARCINOEMBRYONIC ANTIGEN Routine 024 10:55 AM PROGRAM CONSULTANT Adenocarcinoma, NOS of stomach, NOS LACTATE DEHYDROGENASE Routine 05/18/2024 10:55 AM PROGRAM CONSULTANT Adenocarcinoma, NOS of stomach, NOS PHOSPHORUS LEVEL Routine 05/18/2024 10:55 AM PROGRAM CONSULTANT Adenocarcinoma, NOS of stomach, NOS MAGNESIUM LEVEL Routine 05/18/2024 10:55 AM PROGRAM CONSULTANT Adenocarcinoma, NOS of stomach, NOS COMPREHENSIVE METABOLIC PANEL Routine 10:55 AM PROGRAM CONSULTANT Adenocarcinoma, NOS of stomach, NOS COMPLETE BLOOD COUNT W/ DIFFERENTIAL Routine 05/18/2024 10:55 AM PROGRAM CONSULTANT Adenocarcinoma, NOS of stomach, NOS .CBC Routine 05/04/2024 11:34 AM PROGRAM CONSULTANT Adenocarcinoma, NOS of stomach, NOS RESEARCH PROTOCOL [id number] Routine 05/04 11:34 AM PROGRAM CONSULTANT Adenocarcinoma of stomach CARCINOEMBRYONIC ANTIGEN Routine 11:34 AM PROGRAM CONSULTANT Adenocarcinoma, NOS of stomach, NOS LACTATE DEHYDROGENASE Routine 05/04/2024 11:34 AM PROGRAM CONSULTANT Adenocarcinoma, NOS of stomach, NOS PHOSPHORUS LEVEL Routine 05/04/2024 11:34 AM PROGRAM CONSULTANT Adenocarcinoma, NOS of stomach, NOS MAGNESIUM LEVEL Routine 05/04/2024 11:34 AM PROGRAM CONSULTANT Adenocarcinoma, NOS of stomach, NOS COMPREHENSIVE METABOLIC PANEL Routine 11:34 AM PROGRAM CONSULTANT Adenocarcinoma, NOS of stomach, NOS COMPLETE BLOOD COUNT W/ DIFFERENTIAL Routine 05/04/2024 11:34 AM PROGRAM CONSULTANT Adenocarcinoma, NOS of stomach, NOS VERIFY CATHETER TIP PLACEMENT Routine 3:50 PM PROGRAM CONSULTANT Adenocarcinoma of stomach POC GLUCOSE SCREEN Routine 04/15/2024 3:21 PM PROGRAM CONSULTANT XR CHEST 1 VW PORTABLE Routine 2:45 PM PROGRAM CONSULTANT POC GLUCOSE SCREEN Routine 04/15/2024 1:05 PM PROGRAM CONSULTANT POC GLUCOSE SCREEN Routine 04/15/2024 12:52 PM PROGRAM CONSULTANT CYTOLOGY NON-FILM RENTAL CLERK INTERPRETATION Routine 04/15/2024 12:33 PM PROGRAM CONSULTANT Adenocarcinoma of stomach PATHOLOGY SURGICAL INTERPRETATION Routine 04/15/2024 12:13 PM PROGRAM CONSULTANT Adenocarcinoma of stomach FL CENTRAL VENOUS PLACE EXCHANGE Routine 04/15/2024 11:40 AM PROGRAM CONSULTANT Adenocarcinoma of stomach POC GLUCOSE SCREEN Routine 04/15/2024 9:22 AM PROGRAM CONSULTANT NH INSJ TUNNELED CTR VAD W/SUBQ PORT AGE 5 YR/> 04/15/2024 9:16 AM PROGRAM CONSULTANT Adenocarcinoma of stomach Special Needs MTL@0800 CHG US VASC ACCESS SITS VSL PATENCY NDL ENTRY 04/15/2024 9:16 AM PROGRAM CONSULTANT Adenocarcinoma of stomach Special Needs MTL@0800 CHG FLUORO CENTRAL VENOUS ACCESS DEV PLACEMENT 04/15/2024 9:16 AM PROGRAM CONSULTANT Adenocarcinoma of stomach Special Needs MTL@0800 NH LAPS ABD PRTM&OMENTUM DX W/WO SPEC BR/WA SPX 04/15/2024 9:16 AM PROGRAM CONSULTANT Adenocarcinoma of stomach Special Needs MTL@0800 CT ABDOMEN PELVIS W CONTRAST Routine 11:18 AM PROGRAM CONSULTANT .CBC Routine 04/12/2024 9:04 AM PROGRAM CONSULTANT LIPASE LEVEL Routine 04/12/2024 9:04 AM PROGRAM CONSULTANT AMYLASE LEVEL Routine 04/12/2024 9:04 AM PROGRAM CONSULTANT LACTATE DEHYDROGENASE Routine 04/12/2024 9:04 AM PROGRAM CONSULTANT FRACTIONATED BILIRUBIN Routine 9:04 AM PROGRAM CONSULTANT PHOSPHORUS LEVEL Routine 04/12/2024 9:04 AM PROGRAM CONSULTANT MAGNESIUM LEVEL Routine 04/12/2024 9:04 AM PROGRAM CONSULTANT COMPREHENSIVE METABOLIC PANEL Routine 9:04 AM PROGRAM CONSULTANT COMPLETE BLOOD COUNT W/ DIFFERENTIAL Routine 04/12/2024 9:04 AM PROGRAM CONSULTANT .CBC Routine 04/09/2024 11:09 AM PROGRAM CONSULTANT Encounter for other preprocedural examination Atherosclerosis of coronary 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, not otherwise specified THYROID STIMULATING HORMONE Routine 03/21 11:09 AM PROGRAM CONSULTANT Encounter for other preprocedural examination Atherosclerosis of coronary 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, not otherwise specified HEMOGLOBIN A1C Routine 04/09/2024 11:09 AM PROGRAM CONSULTANT 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 Encounter for other preprocedural examination COMPREHENSIVE METABOLIC PANEL Routine 11:09 AM PROGRAM CONSULTANT Encounter for other preprocedural examination Atherosclerosis of coronary 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, not otherwise specified COMPLETE BLOOD COUNT W/ DIFFERENTIAL Routine 04/09/2024 11:09 AM PROGRAM CONSULTANT Encounter for other preprocedural examination Atherosclerosis of coronary 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, not otherwise specified EKG, 12-LEAD (SCHEDULED) Routine 04/09/2024 Adenocarcinoma of stomach Hyperlipidemia, not otherwise specified Encounter for other preprocedural examination Atherosclerosis of coronary 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, not otherwise specified PATHOLOGY OUTSIDE INTERPRETATION Routine 04/02/[address] ABDOMEN AND PELVIS Routine 2023 8:21 AM PROGRAM CONSULTANT Cancer OSI CHEST Routine 03/23/2024 7:37 PM PROGRAM CONSULTANT Cancer OSI CT CHEST ABDOMEN PELVIS Routine 08/2023 7:37 PM PROGRAM CONSULTANT Cancer OSI CHEST Routine 03/23/2024 7:37 PM PROGRAM CONSULTANT Cancer OSI CT CHEST Routine 03/22/2024 8:21 AM PROGRAM CONSULTANT Cancer OSI CT ABDOMEN AND PELVIS Routine 2023 7:36 PM CDT Cancer OSI CHEST Routine 01/20/2024 7:37 PM CDT Cancer OSI CHEST Routine 01/20/2024 7:37 PM CDT Cancer BASIC METABOLIC PANEL, CALCI UM TOTAL Routine 01/03/2024 2:59 PM CDT BASIC METABOLIC PANEL, CALCI UM TOTAL Routine 01/03/2024 11:31 AM CDT POC GLUCOSE SCREEN Routine 01/03/2024 11:19 AM CDT POC GLUCOSE SCREEN Routine 01/03/2024 8:35 AM CDT BASIC METABOLIC PANEL, CALCI UM TOTAL Routine 01/03/2024 8:04 AM CDT POC GLUCOSE SCREEN Routine 01/03/2024 7:20 AM CDT POC GLUCOSE SCREEN Routine 01/03/2024 7:04 AM CDT ZINC TRANSPORTER 8 AB Routine 01/03/2024 4:22 AM CDT GAD65 AB ASSAY SERUM Routine 01/03/2024 4:22 AM CDT ISLET ANTIGEN 2 (IA-2) ANTIBODY Routine 01/03/2024 4:22 AM CDT INSULIN ANTIBODY Routine 01/03/2024 4:22 AM CDT BASIC METABOLIC PANEL, CALCI UM TOTAL Routine 01/03/2024 4:22 AM CDT C-PEPTIDE Routine 01/03/2024 4:22 AM CDT POC GLUCOSE SCREEN Routine 01/03/2024 3:54 AM CDT POC GLUCOSE SCREEN Routine 01/03/2024 12:01 AM CDT BASIC METABOLIC PANEL, CALCI UM TOTAL Routine 01/02/2024 10:55 PM CDT POC GLUCOSE SCREEN Routine 01/02/2024 10:35 PM CDT POC GLUCOSE SCREEN Routine 01/02/2024 8:04 PM CDT MDA CP HEMOGRAM Routine 01/02/2024 7:20 PM CDT COMPLETE BLOOD COUNT W/ INDICES Routine 01/02/2024 7:20 PM CDT BASIC METABOLIC PANEL, CALCI UM TOTAL Routine 01/02/2024 7:20 PM CDT BETA-HYDROXYBUTYRATE [...] 01/02/2024 12:19 PM CDT BASIC METABOLIC PANEL, CALCI UM TOTAL Routine 01/02/2024 12:19 PM CDT PATHOLOGY SURGICAL INTERPRETATION Routine 01/02/2024 10:42 AM CDT Renal mass ARTERIAL BLOOD GAS PLUS STAT 01/02/20 10:38 AM CDT ARTERIAL BLOOD GAS PLUS STAT 01/02/20 8:42 AM CDT POC GLUCOSE SCREEN Routine 01/02/2024 8:18 AM CDT INTRAOPERATIVE US STAT 01/02/2024 7:13 AM CDT CHG ULTRASONIC GUIDANCE INTRAOPERATIVE 01/02/2024 6:08 AM CDT Renal mass [facility] Ne[id number]Please collect and send tissue to pathology window with appropriate label. 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 Endocrine/[place] screening ADRENOCORTICOTROPIC HORMONE Routine 11/18 9:45 AM CDT 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 Glucose Screen 204(H) 70 - 99 mg/dL 05/19/2024 1:54 PM PROGRAM CONSULTANT [facility] POC Sample Type Capillary 05/19/2024 1:54 PM PROGRAM CONSULTANT [facility] Blood 05/19/2024 1:52 PM PROGRAM CONSULTANT 05/19/2024 1:54 PM PROGRAM CONSULTANT Narrative [facility] - 05/19/2024 1:54 PM PROGRAM CONSULTANT Capillary blood samples, e.g. obtained by fingerstick, [...] test results by core lab methodology. us Brandon Galo MD POCT ORDERABLES - DE VICE Final Result [facility] Unless otherwise noted, all lab tests performed by: Division of Pathology and Laboratory Medicine [address] [place] [phone] * Pathology Biopsy Interpretation (05/19/2024 1:10 PM PROGRAM CONSULTANT) Only the most recent of2 resultswithin the time period is included. Submitted Clinical History Adenocarcinoma of stomach [C16.9] 05/21/2024 2:25 PM PROGRAM CONSULTANT [facility] Diagnosis A: Stomach, antrum scarring and stenosis, biopsy: POORLY DIFFERENTIATED SIGNET CELL ADENOCARCINOMA, DIFFUSE TYPE. B: Esophagus, random r/o ruben: Squamous mucosa with Ruben esophagitis. No intestinal metaplasia, dysplasia or carcinoma identified. 05/21/2024 2:25 PM PROGRAM CONSULTANT [facility] Gross Description A: Stomach, gastric antrum scarring and stenosis bx: Multiple soft castillo tissue fragments, 1.4 x 0.6 x 0.3 cm in aggregate, entirely submitted in A1. ET B: Esophagus, esophagus random r/o ruben: Multiple soft minute light castillo tissue fragments, 0.7 x 0.5 x 0.2 cm in aggregate, entirely submitted in B1. ET 05/21/2024 2:25 PM PROGRAM CONSULTANT [facility] Biomarker Block(s) Block for biomarker testing: A1 Normal: B1 05/21/2024 2:25 PM PROGRAM CONSULTANT [facility] Disclaimer "Some tests reported here may have been developed and performance characteristics determined by [facility] Pathology and Laboratory Medicine. These tests have not been specifically cleared or approved by the U.S. Food and Drug Administration. If applicable, controls were reviewed and showed appropriate reactivity." 05/21/2024 2:25 PM PROGRAM CONSULTANT [facility] Tissue (Stomach) 05/19/2024 1:10 PM PROGRAM CONSULTANT 05/19/2024 4:18 PM PROGRAM CONSULTANT Tissue specimen (specimen) (Esophagus) 05/19/2024 1:20 PM PROGRAM CONSULTANT 05/19/2024 4:18 PM PROGRAM CONSULTANT us Brandon Galo MD LAB PATHOLOGY ORDERA BLES Final Result [facility] [address] [place] [phone], [place] * (ABNORMAL) .CBC (05/18/2024 10:55 AM [facility]) Only the most recent of7 resultswithin the time period is included. White Blood Cell 9.9 4.1 - 10.5 K/uL 05/18/2024 11:11 AM [facility] Red Blood Cell 4.54 4.30 - 6.04 M/uL 05/18/2024 11:11 AM [facility] Hemoglobin 11.3(L) 13.3 - 17.4 g/dL 05/18/2024 11:11 AM [facility] Hematocrit 35.4(L) 39.5 - 51.8 % 05/18/2024 11:11 AM [facility] Mean Cell Volume 78(L) 82 - 99 fL 05/18/2024 11:11 AM [facility] Mean Cell Hemoglobin 24.9(L) 26.6 - 33.2 pg 05/18/2024 11:11 AM [facility] Mean Cell Hemoglobin Concentration 31.9 31.1 - 35.2 g/dL 05/18/2024 11:11 AM [facility] RDW-SD 42.3 37.5 - 49.7 fL 05/18/2024 11:11 AM [facility] Red Cell Diameter Width 15.0 11.6 - 15.5 % 05/18/2024 11:11 AM [facility] Platelet 216 160 - 397 K/uL 05/18/2024 11:11 AM [facility] Mean Platelet Volume 9.4 9.1 - 12.6 fL 05/18/2024 11:11 AM [facility] INRBC 0.0 0.0 - 0.1 /100 WBC 05/18/2024 11:11 AM [facility] Comment: The INRBC (instrument NRBC) value reflects the enumeration of nucleated red blood cells contained in a 200uL sample of whole blood analyzed by the instrument. This value may differ from the NRBC value reported in a manual differential, which is based on a 100 cell differential. Neutrophil % 81.3(H) 43.2 - 72.7 % 05/18/2024 11:11 AM [facility] Lymphocyte % 9.0(L) 16.8 - 46.2 % 05/18/2024 11:11 AM [facility] Monocyte % 6.9 5.1 - 12.5 % 05/18/2024 11:11 AM [facility] Eosinophil % 2.0 0.4 - 6.3 % 05/18/2024 11:11 AM [facility] Basophil % 0.4 0.2 - 1.4 % 05/18/2024 11:11 AM [facility] IGRE % 0.4 0.1 - 1.5 % 05/18/2024 11:11 AM [facility] Comment:The IGRE% includes M etamyelocytes, Myelocytes and Promyelocytes. Neutrophil Abs 8.00(H) 1.95 - 7.25 K/uL 05/18/2024 11:11 AM [facility] Lymphocyte Abs 0.89(L) 1.01 - 3.24 K/uL 05/18/2024 11:11 AM [facility] Monocyte Abs 0.68 0.24 - 0.85 K/uL 05/18/2024 11:11 AM [facility] Eosinophil Abs 0.20 0.02 - 0.50 K/uL 05/18/2024 11:11 AM [facility] Basophil Abs 0.04 0.02 - 0.09 K/uL 05/18/2024 11:11 AM [facility] IG Abs 0.04 0.01 - 0.12 K/uL 05/18/2024 11:11 AM [facility] Blood Peripheral blood specimen / Unknown Venipuncture / Unknown 05/18/2024 10:55 AM PROGRAM CONSULTANT 05/18/2024 10:59 AM [facility] Gillian Gomez PA-C LAB BLOOD ORDERABLES Final Result [facility] Unless otherwise noted, all lab tests performed by: Division of Pathology and Laboratory Medicine [address] [place] [phone] * (ABNORMAL) CMP (05/18/2024 10:55 AM [facility]) Only the most recent of6 resultswithin the time period is included. Bilirubin Total <0.3 0.0 - 1.2 mg/dL 05/18/2024 11:52 AM [facility] Comment:Indocyanine Green (I CG) may cause falsely elevated bilirubin results. Total and direct bilirubin must not be measured from samples containing indocyanine green. False elevation of total bilirubin can be seen in patients with IgG concentrations above 28 g/L. eGFR 82 >=60 mL/min/1. 73 sq. m 05/18/2024 11:52 AM [facility] Comment: The eGFRcr is calculated [...] G2 fulfill criteria for CKD. Tot Protein 7.3 6.4 - 8.3 gm/dL 05/18/2024 11:52 AM [facility] Calcium Level Total 9.6 8.2 - 10.2 mg/dL 05/18/2024 11:52 AM [facility] Alkaline Phosphatase 110 40 - 129 U/L 05/18/2024 11:52 AM [facility] Albumin Level 4.1 3.5 - 5.2 gm/dL 05/18/2024 11:52 AM [facility] AST 14 <=40 U/L 05/18/2024 11:52 AM [facility] ALT 10 <=41 U/L 05/18/2024 11:52 AM [facility] Sodium Level 136 136 - 145 mmol/L 05/18/2024 11:52 AM [facility] Potassium Level 4.9(H) 3.4 - 4.5 mmol/L 05/18/2024 11:52 AM [facility] Chloride 100 98 - 107 mmol/L 05/18/2024 11:52 AM [facility] CO2 28 22 - 29 mmol/L 05/18/2024 11:52 AM [facility] Anion Gap 8 4 - 14 mmol/L 05/18/2024 11:52 AM [facility] Creatinine 1.04 0.67 - 1.17 mg/dL 05/18/2024 11:52 AM [facility] BUN 37(H) 6 - 23 mg/dL 05/18/2024 11:52 AM [facility] Glucose Level 233(H) 70 - 99 mg/dL 05/18/2024 11:52 AM [facility] Comment: Effective 12/14/15, the glucose reference intervals have been updated based on [place] [employer] guidelines (Standards of Medical Care in Diabetes 2016. Diabetes Care 2016; 39: S13-S22). Fasting blood glucose: Normal: 70-99 mg/dL Impaired fasting glucose (increased risk for diabetes or pre-diabetes): 100-125 mg/dL Diabetes mellitus: >/=126 mg/dL Random blood glucose: Normal: 70-199 mg/dL Note: Random glucose >100 mg/dL is associated with increased risk for diabetes. Blood Peripheral blood specimen / Unknown Venipuncture / Unknown 05/18/2024 10:55 AM PROGRAM CONSULTANT 05/18/2024 10:59 AM [facility] us Gillian Gomez PA-C LAB BLOOD ORDERABLES Final Result [facility] Unless otherwise noted, all lab tests performed by: Division of Pathology and Laboratory Medicine [address] [place] [id number] * Phosphorus Level (05/18/2024 10:55 AM [facility]) Only the most recent of3 resultswithin the time period is included. Phosphorus Level 3.2 2.5 - 4.5 mg/dL 05/18/2024 11:52 AM PROGRAM CONSULTANT [facility] Blood Peripheral blood specimen / Unknown Venipuncture / Unknown 05/18/2024 10:55 AM PROGRAM CONSULTANT 05/18/2024 10:59 AM PROGRAM CONSULTANT Gillian Gomez PA-C LAB BLOOD ORDERABLES Final Result Performing Organization Address City/[facility] de Phone Number [facility] Unless otherwise noted, all lab tests performed by: Division of Pathology and Laboratory Medicine [address] [place] [address] [phone] * Magnesium Level (05/18/2024 10:55 AM PROGRAM CONSULTANT) Only the most recent of3 resultswithin the time period is included. Magnesium Level 1.8 1.6 - 2.6 mg/dL 05/18/2024 11:52 AM PROGRAM CONSULTANT [facility] Blood Peripheral blood specimen / Unknown Venipuncture / Unknown 05/18/2024 10:55 AM PROGRAM CONSULTANT 05/18/2024 10:59 AM PROGRAM CONSULTANT Gillian Gomez PA-C LAB BLOOD ORDERABLES Final Result Performing Organization Address City/[facility] de Phone Number [facility] Unless otherwise noted, all lab tests performed by: Division of Pathology and Laboratory Medicine [address] [place] [phone] * LDH (05/18/2024 10:55 AM PROGRAM CONSULTANT) Only the most recent of3 resultswithin the time period is included. LDH 182 135 - 225 U/L 05/18/2024 11:52 AM PROGRAM CONSULTANT [facility] Blood Peripheral blood specimen / Unknown Venipuncture / Unknown 05/18/2024 10:55 AM PROGRAM CONSULTANT 05/18/2024 10:59 AM PROGRAM CONSULTANT Narrative [facility] - 05/18/2024 11:52 AM PROGRAM CONSULTANT Results greater than 1651 U/L may not be reliable due to matrix effect with extended dilution as it exceeds the java tech's recommended limit. Caution should be exercised when interpreting such values and done in conjunction with clinical context. Gillian Gomez PA-C LAB BLOOD ORDERABLES Final Result Performing Organization Address City/[facility]/ZIP Co de Phone Number [facility] Unless otherwise noted, all lab tests performed by: Division of Pathology and Laboratory Medicine [address] [place] [address] [phone] * CEA (05/18/2024 10:55 AM PROGRAM CONSULTANT) Only the most recent of2 resultswithin the time period is included. [facility] Carcinoembryonic Antigen 2.7 <=3.8 ng/mL 05/18/2024 11:55 AM PROGRAM CONSULTANT [facility] Blood Peripheral blood specimen / Unknown Venipuncture / Unknown 05/18/2024 10:55 AM PROGRAM CONSULTANT 05/18/2024 10:59 AM PROGRAM CONSULTANT Narrative [facility] - 05/18/2024 11:55 AM PROGRAM CONSULTANT Reference Ranges (age 20-69 years): Non-smoker: <= 3.8 ng/mL Smoker: <= 5.5 ng/mL This test is measured by electrochemiluminescence immunoassay on Cornelius Nikki immunoassay analyzers. Results obtained in different methods are not interchangeable. Gillian Gomez PA-C LAB BLOOD ORDERABLES Final Result Performing Organization Address [facility] de Phone Number [facility] Unless otherwise noted, all lab tests performed by: Division of Pathology and Laboratory Medicine [address] [place] [address] [phone] * Research Protocol [id number] (05/04/2024 11:34 AM PROGRAM CONSULTANT) [facility] Research Protocol Specimen Specimen Collected, Ready for Pickup. 05/04/2024 1:01 PM PROGRAM CONSULTANT [facility] Blood Peripheral blood specimen / Unknown Venipuncture / Unknown 05/04/2024 11:34 AM PROGRAM CONSULTANT 05/04/2024 11:43 AM PROGRAM CONSULTANT Marianela Hutchinson MD RESEARCH LAB Z CODES Final Re sult [facility] [place] Unless otherwise noted, all lab tests performed by: Division of Pathology and Laboratory Medicine [facility] [place] [address] * Tip Verification Central Vascular Access Device (04/15/2024 3:50 PM PROGRAM CONSULTANT) Narrative John Fong MD - 04/15/2024 3:50 PM PROGRAM CONSULTANT John Fong MD 04/15/2024 3:50 PM Central Vascular Access Device Tip Verification Performed by: John Fong MD Authorized by: John Fong MD CVAD Properties Date device placed: 04/15/2024 Device placement location: [facility] Catheter Type: Implanted venous port Catheter lumen: Single lumen Vein location: Internal jugular vein Laterality: Right Tip in good position and cleared for infusion John Fong MD IV THERAPY ORDERABLES Final Re sult * XR Chest 1 View Portable (04/15/2024 2:45 PM PROGRAM CONSULTANT) Anatomical Region Laterality Modality Chest Digital Radiogra phy 04/15/2024 2:50 PM PROGRAM CONSULTANT Impressions 04/15/2024 2:53 PM PROGRAM CONSULTANT 1. Right infusion port catheter terminates over [...] and potentially actionable. Narrative 04/15/2024 2:53 PM PROGRAM CONSULTANT FULL RESULT: Examination: XR CHEST 1 VW [...] wires are intact and aligned. Procedure Note Yohana Miles MD - 04/15/2024 FULL RESULT: Examination: XR [...] and potentially actionable. us John Fong MD [facility] DIAGNOSTIC IMAGING ORDERAB LES Final Result * Cytology Non-[employer]acle Manufacturing Consultant Interpretation (04/15/2024 12:33 PM PROGRAM CONSULTANT) Gross Description 4 Pap Stain Slides 750 ml. clear yellow fluid Specimen concentrated by cytocentrifugation technique 4 4:07 PM PROGRAM CONSULTANT [facility] Major Classification [facility]/benign 4 4:07 PM PROGRAM CONSULTANT [facility] Diagnosis Peritoneal washing: No metastatic carcinoma identified Reactive mesothelial cells and histiocytes 4 4:07 PM PROGRAM CONSULTANT [facility] Retained/Biomark er Testing SR:4S 4 4:07 PM PROGRAM CONSULTANT [facility] Informational Points Some tests reported here may have been developed and performance characteristics determined by [facility] Pathology and Laboratory Medicine. These tests have not been specifically cleared or approved by the U.S. Food and Drug Administration. 4 4:07 PM [facility] Washing (Peritoneal Washing) 04/15/2024 12:33 PM PROGRAM CONSULTANT 04/15/2024 1:10 PM PROGRAM CONSULTANT us John Fong MD LAB CYTOLOGY ORDERABLES Final Result Performing Organization Address City/State/[facility] Co de Phone Number [facility] [address] [place] [phone], * Pathology Surgical Interpretation (04/15/2024 12:13 PM PROGRAM CONSULTANT) Only the most recent of2 resultswithin the time period is included. Submitted Clinical History Adenocarcinoma of stomach [C16.9] 04/20/2024 8:13 PM PROGRAM CONSULTANT [facility] Diagnosis A. Falciform ligament, resection: Fibroadipose tissue, no tumor present 04/20/2024 8:13 PM [facility] Gross Description A: Falciform ligament, falciorm ligament biopsy....or 16: Consists of a fragment of castillo-yellow, lobulated fat (0.8 x 0.6 x 0.5 cm) entirely submitted in cassette A1. EF 04/20/2024 8:13 PM [facility] Disclaimer "Some tests reported here may have been developed and performance characteristics determined by [facility] Pathology and Laboratory Medicine. These tests have not been specifically cleared or approved by the U.S. Food and Drug Administration. If applicable, controls were reviewed and showed appropriate reactivity." 04/20/2024 8:13 PM PROGRAM CONSULTANT [facility] Tissue (Falciform Ligament) 04/15/2024 12:13 PM PROGRAM CONSULTANT 04/15/2024 1:18 PM PROGRAM CONSULTANT us John Fong MD LAB PATHOLOGY ORDERABLES Final Result [facility] Cancer [place] [address] [place] [address], [place] * [place] Central Venous Place Exchange (04/15/2024 11:40 AM PROGRAM CONSULTANT) Narrative Systemgenerated, Documentation - 04/15/2024 11:40 AM PROGRAM CONSULTANT This procedure requires no interpretation from the radiologist. us John Fong MD IMG FLUOROSCOPY ORDERABLES Fin al Result * CT Abdomen Pelvis with IV Contrast (04/12/2024 11:18 AM PROGRAM CONSULTANT) Anatomical Region Laterality Modality Abdomen, Pelvis Computed Tomogra phy 04/12/2024 11:5 2 AM PROGRAM CONSULTANT Impressions 04/12/2024 12:11 PM PROGRAM CONSULTANT Wall thickening and slight mucosal irregularity of [...] and potentially actionable. Narrative 04/12/2024 12:11 PM PROGRAM CONSULTANT FULL RESULT: Examination: CT ABDOMEN PELVIS W [...] MD IMG CT ORDERABLES Final Result * Fractionated Bilirubin (04/12/2024 9:04 AM [facility]) Bilirubin Direct 04/12/20 9:47 AM [facility] Comment: Direct and indirect bilirubin will not be reported when Total bilirubin result is <0.3 mg/dL Indocyanine Green (ICG) may cause falsely elevated bilirubin results. Total and direct bilirubin must not be measured from samples containing indocyanine green. Bilirubin Indirect 2023 9:47 AM [facility] Comment:Direct and indirect bilirubin will not be reported when Total bilirubin result is <0.3 mg/dL Bilirubin Total <0.3 0.0 - 1.2 mg/dL 04/12/2024 9:47 AM [facility] Comment: Direct and indirect bilirubin will not [...] Unknown Venipuncture / Unknown 04/12/2024 9:04 AM PROGRAM CONSULTANT 04/12/2024 9:08 AM PROGRAM CONSULTANT Nghia Zhu MD LAB BLOOD ORDERABLES Final Resu lt Performing Organization Address [facility] de Phone Number [facility] Unless otherwise noted, all lab tests performed by: Division of Pathology and Laboratory Medicine [address] [place] [address] [phone] * (ABNORMAL) Lipase (04/12/2024 9:04 AM PROGRAM CONSULTANT) Lipase Level 311(H) 13 - 60 U/L 04/12/2024 10:09 AM PROGRAM CONSULTANT [facility] Blood Peripheral blood specimen / Unknown Venipuncture / Unknown 04/12/2024 9:04 AM PROGRAM CONSULTANT 04/12/2024 9:08 AM PROGRAM CONSULTANT Narrative [facility] - 04/12/2024 10:09 AM PROGRAM CONSULTANT Reference range established based on adult population us Nghia Zhu MD LAB BLOOD ORDERABLES Final Resu lt Performing Organization Address [facility] de Phone Number [facility] Unless otherwise noted, all lab tests performed by: Division of Pathology and Laboratory Medicine [address] [place] [address] [phone] * (ABNORMAL) Amylase (04/12/2024 9:04 AM PROGRAM CONSULTANT) Amylase Level 171(H) 28 - 100 U/L 04/12/2024 9:47 AM PROGRAM CONSULTANT [facility] Blood Peripheral blood specimen / Unknown Venipuncture / Unknown 04/12/2024 9:04 AM PROGRAM CONSULTANT 04/12/2024 9:08 AM PROGRAM CONSULTANT us Nghia Zhu MD LAB BLOOD ORDERABLES Final Resu lt Performing Organization Address City/[facility] de Phone Number [facility] Unless otherwise noted, all lab tests performed by: Division of Pathology and Laboratory Medicine [address] [place] [address] [phone] * TSH (04/09/2024 11:09 AM PROGRAM CONSULTANT) Only the most recent of2 resultswithin the time period is included. Thyroid Stimulating Hormone 1.53 0.27 - 4.20 mcunit/mL 04/09/2024 12:23 PM PROGRAM CONSULTANT [facility] Blood Peripheral blood specimen / Unknown Venipuncture / Unknown 04/09/2024 11:09 AM PROGRAM CONSULTANT 04/09/2024 11:19 AM PROGRAM CONSULTANT us Ceci Nicholson MD LAB BLOOD ORDERABLES Final Resu lt Performing Organization Address City/[facility]/ZIP Co de Phone Number [facility] Unless otherwise noted, all lab tests performed by: Division of Pathology and Laboratory Medicine [address] [place] [address] [phone] * (ABNORMAL) Hemoglobin A1c (04/09/2024 11:09 AM PROGRAM CONSULTANT) Only the most recent of3 resultswithin the time period is included. Hemoglobin A1c 7.0(H) 4.3 - 5.6 % 04/09/2024 12:14 PM PROGRAM CONSULTANT [facility] Blood Peripheral blood specimen / Unknown Venipuncture / Unknown 04/09/2024 11:09 AM PROGRAM CONSULTANT 04/09/2024 11:19 AM PROGRAM CONSULTANT Narrative [facility] - 04/09/2024 12:14 PM PROGRAM CONSULTANT HbA1c values >=6.5% are diagnostic of diabetes mellitus. Diagnosis should be confirmed by repeat testing. Therapeutic Action suggested: >8.0% HbA1c; Goal of therapy: <7.0% HbA1c us Ceci Nicholson MD LAB BLOOD ORDERABLES Final Resu lt [facility] Unless otherwise noted, all lab tests performed by: Division of Pathology and Laboratory Medicine [address] [place] [address] [phone] * EKG, 12-Lead (Scheduled) (04/09/2024) Only the most recent of2 resultswithin the time period is included. Ceci Nicholson MD ECG ORDERABLES Final Result [facility] * Pathology Outside Interpretation (04/02/2024) Materials Received Accession#, Stained, Block, Unstained Collected Received A. [id number], 20 SS, 0 BLOCKS, 0 USS 04/02/2024 04/22/2024 04/22/2024 5:36 PM [facility] Diagnosis Outside ([id number], 20 SS, 0 BLOCKS, 0 USS, collected [...] ADENOCARCINOMA WITH SIGNET CELL FEATURES. See comment. CLEMENTE/ISAURO 04/22/2024 5:36 PM [facility] Comment Part A. There is no evidence of malignancy on H&E and immunohistochemical stain for Cytokeratin AE1/AE3. Of note, the biopsy may not be sales representative livestock of the entire lesion. Please correlate with [...] immunohistochemistry: Negative (Score: 0) 04/22/2024 5:36 PM PROGRAM CONSULTANT [facility] Biomarker Block(s) Block for biomarker testing: C1 Normal block: N/A 04/22/2024 5:36 PM PROGRAM CONSULTANT [facility] Disclaimer "Some tests reported here may have been developed and performance characteristics determined by [facility] Pathology and Laboratory Medicine. These tests have not been specifically cleared or approved by the U.S. Food and Drug Administration. If applicable, controls were reviewed and showed appropriate reactivity." 04/22/2024 5:36 PM PROGRAM CONSULTANT [facility] Tissue 04/02/2024 04/22/2024 6:4 0 AM PROGRAM CONSULTANT us Sybil Edmonds MD LAB PATHOLOGY ORDERABLES Final R esult [place] [address] [place] [address], [place] * OSI CT Abdomen and Pelvis (04/01/2024 8:21 AM PROGRAM CONSULTANT) Only the most recent of3 resultswithin the time period is included. Narrative Systemgenerated, Documentation - 04/27/2024 8:22 AM PROGRAM CONSULTANT Study acquired at another institution. For comparison only. No MD Strunk originated interpretation requested or available. us Eagle Zhu DO IMG OUTSIDE IMAGE ORDERAB LES Final Result * OSI CT CHEST ABDOMEN PELVIS (03/23/2024 7:37 PM PROGRAM CONSULTANT) Narrative Systemgenerated, Documentation - 04/09/2024 7:37 PM PROGRAM CONSULTANT Study acquired at another institution. For comparison only. No [facility] originated interpretation requested or available. us Margoth Souza MD IMG OUTSIDE IMAGE ORDERABLES Fin al Result * OSI Chest (03/23/2024 7:37 PM PROGRAM CONSULTANT) Only the most recent of4 resultswithin the time period is included. Narrative Systemgenerated, Documentation - 04/09/2024 7:37 PM PROGRAM CONSULTANT Study acquired at another institution. For comparison only. No MD Pernell originated interpretation requested or available. us Margoth Souza MD IMG OUTSIDE IMAGE ORDERABLES Fin al Result * OSI CT Chest (03/22/2024 8:21 AM PROGRAM CONSULTANT) Narrative Systemgenerated, Documentation - 04/27/2024 8:21 AM PROGRAM CONSULTANT Study acquired at another institution. For comparison only. No [facility] originated interpretation requested or available. us [facility] Regan Zhu DO IMG OUTSIDE IMAGE ORDERAB LES Final Result * (ABNORMAL) Basic Metabolic Panel- Total Calcium (01/03/2024 2:59 PM CDT) Only the most recent of7 resultswithin the time period is included. eGFR 71 >=60 mL/min/1. 73 sq. m 01/03/2024 3:44 PM CDT [facility] Comment: The eGFRcr is calculated [...] - 10.2 mg/dL 01/03/2024 3:44 PM CDT [facility] Sodium Level 139 136 - 145 mmol/L 01/03/2024 3:44 PM CDT [facility] Potassium Level 3.9 3.4 - 4.5 mmol/L 01/03/2024 3:44 PM CDT [facility] Chloride 103 98 - 107 mmol/L 01/03/2024 3:44 PM CDT [facility] CO2 28 22 - 29 mmol/L 01/03/2024 3:44 PM CDT [facility] Anion Gap 8 4 - 14 mmol/L 01/03/2024 3:44 PM CDT [facility] Creatinine 1.18(H) 0.67 - 1.17 mg/dL 01/03/2024 3:44 PM CDT [facility] BUN 15 6 - 23 mg/dL 01/03/2024 3:44 PM CDT [facility] Glucose Level 137(H) 70 - 99 mg/dL 01/03/2024 3:44 PM CDT [facility] Comment: Effective 12/14/15, the glucose reference intervals have been updated based on [place] [employer] guidelines (Standards of Medical Care [...] Mcmanus APRN LAB BLOOD ORDERABLES Final Result [facility] Unless otherwise noted, all lab tests performed by: Division of Pathology and Laboratory Medicine [address] [place] [phone] * Zinc Transporter 8 Ab (01/03/2024 4:22 AM CDT) Pathologist [facility] Zinc T8 AB <15.0 <15.0 U/mL 01/15/2024 11:18 AM CDT [facility] Comment: ADDITIONAL INFORMATION This test has been modified from the java tech's instructions. Its performance characteristics were determined by [facility] in a manner consistent with CLIA requirements. This test has not been cleared or approved by the U.S. Food and Drug Administration. Test Performed by: [address] [address] Pickling Operator: Mary Jane Topete Ph.D.; CLIA# [id number] Blood Peripheral blood specimen / Unknown Venipuncture / Unknown 01/03/2024 4:22 AM CDT 01/03/2024 4:55 AM CDT Alicia Mcmanus APRN LAB BLOOD ORDERABLES Final Result Performing Organization Address [facility] Co de Phone Number [facility] * Islet Antigen 2 (IA-2) Antibody (01/03/2024 4:22 AM CDT) IA-2 Antibody 0.00 <=0.02 nmol/L 01/07/2024 12:20 AM CDT [facility] Comment: ADDITIONAL INFORMATION This test was developed and its performance characteristics determined by [facility] in a manner consistent with CLIA requirements. This test has not been cleared or approved by the U.S. Food and Drug Administration. Test Performed by: [address] [address] Pickling Operator: Mary Jane Topete Ph.D.; CLIA# [id number] Blood Peripheral blood specimen / Unknown Venipuncture / Unknown 01/03/2024 4:22 AM CDT 01/03/2024 4:55 AM CDT Alicia Mcmanus APRN LAB BLOOD ORDERABLES Final Result Performing Organization Address City/[facility]/ZIP Co de Phone Number [facility] * GREG Ab Assay (01/03/2024 4:22 AM CDT) GAD65 Ab-Maxwell 0.00 <=0.02 nmol/L 01/07/2024 12:01 AM CDT [facility] Comment: ADDITIONAL INFORMATION This test was developed and its performance characteristics determined by [facility] in a manner consistent with CLIA requirements. This test has not been cleared or approved by the U.S. Food and Drug Administration. Test Performed by: [address] [address] Pickling Operator: Mary Jane Topete Ph.D.; CLIA# [id number] Blood Peripheral blood specimen / Unknown Venipuncture / Unknown 01/03/2024 4:22 AM CDT 01/03/2024 4:55 AM CDT Alicia Mcmanus APRN LAB BLOOD ORDERABLES Final Result [facility] * Insulin Ab (01/03/2024 4:22 AM CDT) Pathologist [facility] Insulin Ab-Maxwell 0.00 0.00 - 0.02 nmol/L 01/06/2024 5:14 PM CDT [facility] Comment: ADDITIONAL INFORMATION This test was developed and its performance characteristics determined by [facility] in a manner consistent with CLIA requirements. This test has not been cleared or approved by the U.S. Food and Drug Administration. Test Performed by: [address] [address] Pickling Operator: Mary Jane Topete Ph.D.; CLIA# [id number] Blood Peripheral blood specimen / Unknown Venipuncture / Unknown 01/03/2024 4:22 AM CDT 01/03/2024 4:55 AM CDT Alicia Mcmanus APRN LAB BLOOD ORDERABLES Final Result [place] [facility] * C Peptide (01/03/2024 4:22 AM CDT) [facility] C-Peptide 2.12 1.10 - 4.40 ng/mL 01/03/2024 5:48 AM CDT [facility] Blood Peripheral blood specimen / Unknown Venipuncture / Unknown 01/03/2024 4:22 AM CDT 01/03/2024 4:55 AM CDT Alicia Mcmanus APRN LAB BLOOD ORDERABLES Final Result [facility] Unless otherwise noted, all lab tests performed by: Division of Pathology and Laboratory Medicine [address] [place] [phone] * (ABNORMAL) Hemogram (01/02/2024 7:20 PM CDT) [facility] White Blood Cell 13.8(H) 4.1 - 10.5 K/uL 01/02/2024 7:33 PM CDT [facility] Red Blood Cell 4.74 4.30 - 6.04 M/uL 01/02/2024 7:33 PM CDT [facility] Hemoglobin 12.2(L) 13.3 - 17.4 g/dL 01/02/2024 7:33 PM CDT [facility] Hematocrit 38.6(L) 39.5 - 51.8 % 01/02/2024 7:33 PM CDT [facility] Mean Cell Volume 81(L) 82 - 99 fL 01/02/2024 7:33 PM CDT [facility] Mean Cell Hemoglobin 25.7(L) 26.6 - 33.2 pg 01/02/2024 7:33 PM CDT [facility] Mean Cell Hemoglobin Concentration 31.6 31.1 - 35.2 g/dL 01/02/2024 7:33 PM CDT [facility] RDW-SD 39.1 37.5 - 49.7 fL 01/02/2024 7:33 PM CDT [facility] Red Cell Diameter Width 13.1 11.6 - 15.5 % 01/02/2024 7:33 PM CDT [facility] Platelet 291 160 - 397 K/uL 01/02/2024 7:33 PM CDT [facility] Mean Platelet Volume 9.7 9.1 - 12.6 fL 01/02/2024 7:33 PM CDT [facility] INRBC 0.0 0.0 - 0.1 /100 WBC 01/02/2024 7:33 PM CDT [facility] Comment: The INRBC (instrument NRBC) [...] PRICE LAB BLOOD ORDERABLES Final R esult [facility] Unless otherwise noted, all lab tests performed by: Division of Pathology and Laboratory Medicine [address] [place] [phone] * (ABNORMAL) Beta Hydroxy Quant (01/02/2024 7:20 PM CDT) Only the most recent of2 resultswithin the time period is included. Pathologist [facility] Beta-Hydroxybuty rate 0.85(H) 0.02 - 0.27 mmol/L 01/02/2024 8:01 PM CDT [facility] Is patient fasting? No 01/02/2024 8:01 PM CDT [facility] Comment:A fasting specimen i s recommended and results obtained from non-fasting specimens should be interpreted with caution using reference ranges based on fasting status and in conjunction with clinical context. Blood Peripheral blood specimen / Unknown Venipuncture / Unknown 01/02/2024 7:20 PM CDT 01/02/2024 7:24 PM CDT Narrative [facility] - 01/02/2024 8:01 PM CDT Reference range based on fasting. us Alicia Mcmanus APRN LAB BLOOD ORDERABLES Final Result [facility] Unless otherwise noted, all lab tests performed by: Division of Pathology and Laboratory Medicine [address] [place] [address] * (ABNORMAL) ABG+ (ABG, Na, K, Cl, Glu, Hgb, Hct, Lactate, Ion Ca) (01/02/2024 10:38 AM CDT) Only the most recent of2 resultswithin the time period is included. Sodium Arterial 140 136 - 146 mmol/L 01/02/2024 10:44 AM CDT [facility] Potassium Arterial 3.7 3.4 - 4.5 mmol/L 01/02/2024 10:44 AM CDT [facility] Chloride Arterial 103 98 - 106 mmol/L 01/02/2024 10:44 AM CDT [facility] Glucose Arterial 270(H) 70 - 105 mg/dL 01/02/2024 10:44 AM CDT [facility] Hgb Art 12.9(L) 13.5 - 17.5 g/dL 01/02/2024 10:44 AM CDT [facility] Hematocrit Arterial 40(L) 42 - 52 % 01/02/2024 10:44 AM CDT [facility] Lactate Arterial 1.0(H) 0.4 - 0.8 mmol/L 01/02/2024 10:44 AM CDT [facility] Calcium Ionized Arterial 1.14(L) 1.15 - 1.29 mmol/L 01/02/2024 10:44 AM CDT [facility] pH Arterial 7.35 7.35 - 7.45 01/02/2024 10:44 AM CDT [facility] P CO2 Arterial 42.9 35.0 - 48.0 mmHg 01/02/2024 10:44 AM CDT [facility] P O2 Arterial 164(H) 83 - 108 mmHg 01/02/2024 10:44 AM CDT [facility] Bicarbonate Arterial 24 21 - 28 mmol/L 01/02/2024 10:44 AM CDT [facility] WB Anion Gap 13 7 - 16 mmol/L 01/02/2024 10:44 AM CDT [facility] Base Excess Arterial -2 -2 - 3 mmol/L 01/02/2024 10:44 AM CDT [facility] Oxygen Saturation Arterial 99 95 - 99 % 01/02/2024 10:44 AM CDT [facility] Oxygen FLOW Rate/ FiO2 01/02/2024 10:44 AM CDT [facility] O2 Therapy 01/02/2024 10:44 AM T [facility] Art Kirill Test Not Applicable (Arterial Line Draw) 01/02/2024 10:44 AM CDT [facility] Blood Arterial blood specimen / Unknown Arterial Line / Unknown 01/02/2024 10:38 AM CDT 01/02/2024 10:41 AM CDT Narrative [facility] - 01/02/2024 10:44 AM CDT [...] 0.0301. Alonzo Liu MD LAB BLOOD ORDERABLES Final Result [facility] Unless otherwise noted, all lab tests performed by: Division of Pathology and Laboratory Medicine [facility] [place] [address] * Intraoperative Ultrasound - For Image Storage [...] EXP DATE 01/22/2024 12/23/2023 2:19 PM CDT [facility] Blood Peripheral blood specimen / Unknown Venipuncture / Unknown 12/23/2023 8:51 AM CDT 12/23/2023 9:00 AM CDT us Margoth Souza MD BLOOD BANK TEST ORDERABLES Final Result [facility] [address] [facility] [address] [place] [address] * Preop Updated Expiration (12/23/2023 8:51 AM CDT) PREOP STATUS 01/02/2024 11:33 PM CDT [facility] PREOP EXP DATE 01/02/2024 01/02/2024 11:33 PM CDT [facility] Blood Peripheral blood specimen / Unknown Venipuncture / Unknown 12/23/2023 8:51 AM CDT 12/23/2023 9:00 AM CDT us Margoth Souza MD BLOOD BANK TEST ORDERABLES Final Result [facility] [address] [place] [address] * (ABNORMAL) Urinalysis with Reflex Culture (12/23/2023 8:51 AM CDT) Only the most recent of2 resultswithin the time period is included. Urine Appearance Clear Clear 12/23/19 9:33 AM CDT [facility] Urine Color Straw Colorless, Straw, Yellow, Dark Yellow, Straw-Yellow 12/23/2023 9:33 AM CDT [facility] Urine Specific [place] 1.032 1.003 - 1.035 12/23/2023 9:33 AM CDT [facility] Urine pH 6.0 5.0 - 8.0 12/23/2023 9:33 AM CDT [facility] Urine Glucose >=1000(A) Negative mg/dL 12/23/2023 9:33 AM CDT [facility] Urine Ketones Negative Negative mg/dL 12/23/2023 9:33 AM CDT [facility] Urine Blood Negative Negative 12/23/2023 9:33 AM CDT [facility] Urine Protein 30(A) Negative mg/dL 12/23/2023 9:33 AM CDT [facility] Urine Bilirubin Negative Negative 9:33 AM CDT [facility] Urine Urobilinogen Negative Negative 12/23/2023 9:33 AM CDT [facility] Urine Nitrite Negative Negative 12/23/2023 9:33 AM CDT [facility] Urine Leukocyte Esterase Negative Negative 12/23/2023 9:33 AM CDT [facility] Urine Mucous Not Seen Not Seen, Trace /HPF 12/23/2023 9:33 AM CDT [facility] Urine Bacteria Not Seen Not Seen /HPF 12/23/2023 9:33 AM CDT [facility] Urine Squamous Epithelial Cells OCC Not Seen, OCC, Rare /HPF 12/23/2023 9:33 AM CDT [facility] Urine WBC <1 <=2 /HPF 12/23/2023 9:33 AM CDT [facility] Urine RBC 1 <=2 /HPF 12/23/2023 9:33 AM CDT [facility] Urine Voided urine specimen / Unknown Non-blood Collection / Unknown 12/23/2023 8:51 AM CDT 12/23/2023 9:10 AM CDT Narrative [facility] - 12/23/2023 9:33 AM CDT Some reporting parameters within the Urinalysis test have changed due to the implementation of new instrumentation in the [facility], allowing greater sensitivity of measurement. Urinalysis results reported by the [facility] using existing instrumentation, as well as Urinalysis testing performed manually or by back-up methodology at the main [place], will remain relatively unchanged. New reporting parameters and units will now be reported for all campuses. us Margoth Souza MD URINE ORDERABLES Final Result [facility] Unless otherwise noted, all lab tests performed by: Division of Pathology and Laboratory Medicine [address] [place] [address] * 30-Day Pre-Op Type and Screen (12/23/2023 8:51 AM CDT) Only the most recent of2 resultswithin the time period is included. ABORh O POS 12/23/2023 8:45 AM CDT [facility] ABSC Negative 12/23/2023 8:45 AM CDT [facility] BB Criteria Met Criteria met 12/23/2023 8:45 AM CDT [facility] Historical Record Check Complete 12/23/2023 8:45 AM CDT [facility] Blood Peripheral blood specimen / Unknown Venipuncture / Unknown 12/23/2023 8:51 AM CDT 12/23/2023 9:00 AM CDT Margoth Souza MD BLOOD BANK TEST ORDERABLES Final Result [facility] [address] [place] [address] [place] [address] * TMP Interpretation Exception PreOp Expiration (12/23/2023 8:51 AM CDT) Only the most recent of2 resultswithin the time period is included. TMP Exception 12/24/2023 10:47 AM CDT [facility] TMP Signature . 12/24/2023 10:47 AM CDT [facility] Blood Peripheral blood specimen / Unknown Venipuncture / Unknown 12/23/2023 8:51 AM CDT 12/23/2023 9:00 AM CDT Margoth Souza MD BLOOD BANK TEST ORDERABLES Final Result [facility] [address] [place] [address] [place] [address] * ACTH (12/09/2023 9:45 AM CDT) Only the most recent of2 resultswithin the time period is included. ACTH 22 7 - 63 pg/mL 12/09/2023 12:19 PM CDT [facility] Blood Peripheral blood specimen / Unknown Venipuncture / Unknown 12/09/2023 9:45 AM CDT 12/09/2023 9:52 AM CDT Narrative [facility] - 12/09/2023 12:19 PM CDT Reference range established based on adult population (7 - 10am draws). No established reference values for p.m. draws. Results greater than 1826 pg/mL may not be reliable due to matrix effect with extended dilution as it exceeds the java tech's recommended limit. ACTH reference intervals are established for the morning hours from 7-10 am. Due to the circadian rhythm of ACTH levels in plasma, the sample collection time must be noted. Caution should be exercised when interpreting such values and done in conjunction with clinical context. Veronica Del Castillo FRANK LAB BLOOD ORDERABLES Final Result [facility] Unless otherwise noted, all lab tests performed by: Division of Pathology and Laboratory Medicine [address] [place] [address] * DHEA Sulfate (12/09/2023 9:45 AM CDT) [facility] DHEAS-Monroe 81 20 - 299 mcg/dL 12/10/2023 12:10 PM CDT [facility] TIFF Comment: Test Performed by: [facility] [address] [place] [address] Pickling Operator: Mary Jane Topete Ph.D.; CLIA# [id number] Blood Peripheral blood specimen / Unknown Venipuncture / Unknown 12/09/2023 9:45 AM CDT 12/09/2023 9:56 AM CDT LeahClint Del Castillo [facility] LAB BLOOD ORDERABLES Final Result Performing Organization Address City/[facility]/ZIP Co de Phone Number [facility] TIFF * Cortisol, Total (12/09/2023 9:45 AM CDT) Only the most recent of4 resultswithin the time period is included. Pathologist [facility] Cortisol 11.39 4.82 - 19.50 mcg/dL 12/09/2023 11:00 AM CDT [facility] Blood Peripheral blood specimen / Unknown Venipuncture / Unknown 12/09/2023 9:45 AM CDT 12/09/2023 9:55 AM CDT Narrative [facility] - 12/09/2023 11:00 AM CDT [...] Castillo APRN LAB BLOOD ORDERABLES Final Result [facility] Unless otherwise noted, all lab tests performed by: Division of Pathology and Laboratory Medicine [facility] [place] [address] * IR CT GUIDED BIOPSY RENAL (10/03/2023 10:27 AM CDT) Anatomical Region Laterality Modality Abdomen/Pelvis, Organ (liver/spleen/kidney) Computed Tomography Narrative 10/04/2023 9:03 AM CDT Table formatting from the original result was not included. Date of Procedure: 10/03/23 Attending Physician: Kumar Comer MD Filenet Developer: None Pre Procedure Diagnosis: Renal mass Post [...] with Interventional Radiology required. Shazia Arriaza MD IMG IR ORDERABLES Final Re sult * Prothrombin Time (10/03/2023 9:27 AM CDT) Prothrombin Time 12.6 11.9 - 14.5 second(s) 10/03/2023 9:57 AM CDT [facility] International Normalization Ratio 0.98 0.87 - 1.12 10/03/2023 9:57 AM CDT [facility] Blood Peripheral blood specimen / Unknown Venipuncture / Unknown 10/03/2023 9:27 AM CDT 10/03/2023 9:28 AM CDT Abilio Ng PA-C LAB BLOOD ORDERABLES Final Result [facility] [address] [facility] [address] [place] [address] * Type and Screen (10/03/2023 9:27 AM CDT) ABORh O POS 10/03/2023 9:17 AM CDT [facility] ABSC Negative 10/03/2023 9:17 AM CDT [facility] Clot Expiration 10/06/2023 23:59 10/03/2023 9:17 AM CDT [facility] Historical Record Check Complete 10/03/2023 9:17 AM CDT [facility] Blood Peripheral blood specimen / Unknown Venipuncture / Unknown 10/03/2023 9:27 AM CDT 10/03/2023 9:52 AM CDT us Conrado-Dannielle D Hernandez H[facility] BLOOD BANK TEST ORDERABLES Final Result [facility] [address] [place] [address] * X-ray Chest 2 Views (09/19/2023 9:24 [...] and potentially actionable. us Shazia Arriaza MD [facility] DIAGNOSTIC IMAGING ORD ERABLES Final Result * Metanephrines Fractionated (09/16/2023 4:24 PM CDT) [facility] Normetane Free-Maxwell 0.43 <0.90 nmol/L 09/19/2023 2:59 PM CDT [facility] Metanephr Free-Maxwell <0.20 <0.50 nmol/L 09/19/2023 2:59 PM CDT [facility] Comment: ADDITIONAL INFORMATION This test was developed and its performance characteristics determined by [facility] in a manner consistent with CLIA requirements. This test has not been cleared or approved by the U.S. Food and Drug Administration. Test Performed by: [facility] [place] [address] Pickling Operator: Scot Skelton M.D. Ph.D.; CLIA# [id number] Blood Peripheral blood specimen / Unknown Venipuncture / Unknown 09/16/2023 4:24 PM CDT 09/16/2023 4:41 PM CDT Shazia Arriaza MD LAB BLOOD ORDERABLES Final Result [facility] * Hepatitis C Virus Antibody (09/16/2023 4:24 PM CDT) [facility] HCVAb. Non Reactive Non Reactive 09/17/2023 9:11 AM CDT [facility] Blood Peripheral blood specimen / Unknown Venipuncture / Unknown 09/16/2023 4:24 PM CDT 09/16/2023 4:41 PM CDT Narrative [facility] - 09/17/2023 9:11 AM CDT Antibody detection in the immunocompromised and immunosuppressed population may be delayed or absent entirely. Therefore serial testing, correlation with other clinical findings, and supplemental testing (if available) should be taken into consideration when interpreting the results. Shazia Arriaza MD LAB BLOOD ORDERABLES Final Result [facility] Unless otherwise noted, all lab tests performed by: Division of Pathology and Laboratory Medicine [address] [place] [address] * Aldosterone Level (09/16/2023 4:24 PM CDT) Aldosterone-Monroe 8.1 <=21 ng/dL 09/20/2023 1:02 AM CDT [facility] Comment: ADDITIONAL INFORMATION Reference range for patients 11 years and older is based on upright A.M. collection from subjects without sodium restrictions. This test was developed and its performance characteristics determined by [facility] in a manner consistent with CLIA requirements. This test has not been cleared or approved by the U.S. Food and Drug Administration. Test Performed by: [facility] - [address] [address] Pickling Operator: Scot Skelton M.D. Ph.D.; CLIA# [id number] Blood Peripheral blood specimen / Unknown Venipuncture / Unknown 09/16/2023 4:24 PM CDT 09/16/2023 4:41 PM CDT us Shazia Arriaza MD LAB BLOOD ORDERABLES Final Result [facility] TIFF * Renin Activity (09/16/2023 4:24 PM CDT) Pathologist [facility] Renin Activity-Monroe 4.3 ng/mL/h 09/19 3:42 PM CDT [facility] Comment: REFERENCE VALUE (Peripheral vein specimen) Na-deplete, upright: Mean: 5.9 Range: 2.9-10.8 Na-replete, upright: Mean: 1.0 Range: < or =0.6-3.0 ADDITIONAL INFORMATION Testing performed by Liquid Chromatography-Tandem Mass Spectrometry (LC-MS/MS). This test was developed and its performance characteristics determined by [facility] in a manner consistent with CLIA requirements. This test has not been cleared or approved by the U.S. Food and Drug Administration. Test Performed by: [facility] [place] [address] Pickling Operator: Scot Skelton M.D. Ph.D.; CLIA# [id number] Blood Peripheral blood specimen / Unknown Venipuncture / Unknown 09/16/2023 4:24 PM CDT 09/16/2023 4:41 PM CDT Shazia Arriaza MD LAB BLOOD ORDERABLES Final Result [facility] * Urine Culture (09/16/2023 4:24 PM CDT) [facility] Urine Culture Normal site mirna present. Generally of low significance. Correlate with clinical data and culture history. 09/18/2023 8:31 AM CDT [facility] Urine Voided urine specimen / Unknown Non-blood Collection / Unknown 09/16/2023 4:24 PM CDT 09/16/2023 4:41 PM CDT us Shazia Arriaza MD MICROBIOLOGY - GENERAL ORD ERABLES Final Result [facility] Unless otherwise noted, all lab tests performed by: Division of Pathology and Laboratory Medicine [address] [place] [address] * T4 (09/16/2023 4:24 PM CDT) Thyroxine 7.0 4.5 - 11.7 mcg/dL 09/16/2023 5:55 PM CDT [facility] Blood Peripheral blood specimen / Unknown Venipuncture / Unknown 09/16/2023 4:24 PM CDT 09/16/2023 4:41 PM CDT us Shazia Arriaza MD LAB BLOOD ORDERABLES Final Result Performing Organization Address City/[facility]/ZIP Co de Phone Number [facility] Unless otherwise noted, all lab tests performed by: Division of Pathology and Laboratory Medicine [address] [place] [id number] * Confirm ABORh (09/16/2023 4:23 PM CDT) [facility] ABORh Confirm O POS 09/16/2023 4:15 PM CDT [facility] Blood Peripheral blood specimen / Unknown Venipuncture / Unknown 09/16/2023 4:23 PM CDT 09/16/2023 4:41 PM CDT us Shazia Arriaza MD BLOOD BANK TEST ORDERABLES Final Result [facility] [address] [place], [place] [address] [address] [place] [address] * OSI CT Brain (07/17/2023 7:40 AM PROGRAM CONSULTANT) Narrative Systemgenerated, Documentation - 08/08/2023 7:40 AM CDT Study acquired at another institution. For comparison only. No [facility] originated interpretation requested or available. us Margoth Souza MD IMG OUTSIDE IMAGE ORDERABLES Fin al Result after 05/24/2023 Insurance Advance Directives * Full Code (Latest Code Status on File) Date Activated Date Inactivated Comments 04/12/2024 1:24 PM 04/12/2024 5:43 PM * Full Code Date Activated Date Inactivated Comments 01/02/2024 1:48 PM 01/03/2024 7:17 PM Care Teams Boring Machine Operator Double End Relationship Specialty Start Date End Date Margoth Souza MD [address] [place] [address] [email or web address] PCP - General Urology 07/30/23 04/14/24 Eagle Zhu DO [address] [place] [phone] [email or web address] PCP - External Primary Care Provider Family Practice 04/08/24 Marianela Hutchinson MD [address] [place] [phone] [email or web address] PCP - General Gastrointestinal Medical Oncology 05/04/24 Mary Jane Cassidy MD [address] [place] [phone] [email or web address] Consulting Physician Endocrinology 12/09/23 Barry He MD [address] [place] [phone] [email or web address] Consulting Physician Internal Medicine 12/23/23 Patience Hunt MD [address] [place] [phone] [email or web address] Consulting Physician Endocrinology 12/31/23 Marianela Hutchinson MD [address] [place] [phone] [email or web address] Consulting Physician Gastrointestinal Medical Oncology 04/13/24 Margoth Souza MD [address] [place] [phone] [email or web address] Consulting Physician Urology 04/15/24 Ceci Nicholson MD [address] [place] [address] [email or web address] Consulting Physician Internal Medicine 04/09/24
[2024-05-23] MEDS ORDERED: ONDANSETRON 4 MG/2 ML VIAL ONE (03:46)
[2024-05-23] MEDS ORDERED: NA CHLORIDE 0.9% 1,000 ML ONE (03:46)
[2024-05-23 03:57] LABS: Absolute Eosinophils 0.1 K/uL (0-0.5); Absolute Lymphocytes (CBC) 1.4 K/uL (0.7-4.9); Absolute Monocytes 0.4 K/uL (0.1-1.3); Absolute Neutrophil 4.7 K/uL (1.8-8.0); Basophils % 0.6 % (0-1.3); Eosinophils % 2.2 % (0-4.4); Hematocrit 34.5 % (39.6-49.0); Hemoglobin 11.4 g/dL (13.6-17.9); MCHC 33.2 g/dL (32.0-36.0); MCV 75.5 fL (80-100); MPV 7.4 fL (7.6-11.3); Monocytes % 5.3 % (3.3-12.3); Neutrophils % 70.9 % (41.7-73.7); Nucleated Red Blood Cells % 0.1 % (0-0); Platelets 274 thou/uL (152-406); RBC Red Blood Cell Count 4.57 M/uL (4.33-5.43); Red Cell Distribution Width 16.5 % (12.1-15.2)
[2024-05-23 04:18] LABS: Albumin 3.3 g/dL (3.4-5.0); Albumin/Globulin Ratio 0.8 (1.1-1.8); Anion Gap 10.3 mEq/L (5.0-15.0); Bilirubin Total 0.3 mg/dL (0.2-1.0); Globulin 3.9 g/dL (2.3-3.5); Potassium 4.3 mEq/L (3.5-5.1); Protein, Total 7.2 g/dL (6.4-8.2)
--- NOTE | 2024-05-23 05:28 | EDPHYS ---
Physician Documentation [facility] Name: Zeke Mackay Sr Age: 59 yrs Sex: Male : 1965 Arrival Date: 05/23/2024 Time: 03:27 Bed 5 Private MD: ED Physician Jag Horvath HPI: 05/23 03:49 This 59 yrs old Male presents to ER via Ambulatory with complaints of Nausea, sp4 Muscle aches,chills, cancer patient. 04:25 59-year-old male with history of gastric cancer, history of cervical stenosis, history sp4 of diabetes hypertension, last chemotherapy Saturday at 5 PM at [facility] presents with sudden onset of moderate to severe nausea associated with generalized weakness. MD oncologist is Dr. Hutchinson . 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 - Infectious Disease History:: Denies. - Social history:: Smoking status: Patient denies any tobacco usage or history of. Patient uses MARIJUANA. - Family history:: not pertinent. ROS: 04:25 Constitutional: Negative for fever, chills, and weight loss, positive for nausea and sp4 generalized weakness 04:25 All other systems are negative, Exam: 04:25 Constitutional: This is a well developed, well nourished patient who is awake, alert, sp4 and in no acute distress. Head/Face: Normocephalic, atraumatic. Eyes: Pupils equal round and reactive to light, extra-ocular motions intact. Lids and lashes normal. Conjunctiva and sclera are not injected. Cornea within normal limits. Periorbital areas with no swelling, redness, or edema. ENT: Nares patent. No nasal discharge, no septal abnormalities noted. Tympanic membranes are normal and external auditory canals are clear. Oropharynx with no redness, swelling, or masses, exudates, or evidence of obstruction, uvula midline. Mucous membranes moist. Neck: Trachea midline, no thyromegaly or masses palpated, and no cervical lymphadenopathy. Supple, full range of motion without nuchal rigidity, or vertebral point tenderness. Chest/axilla: Normal chest wall appearance and motion. Nontender with no deformity. No lesions are appreciated. Cardiovascular: Regular rate and rhythm with a normal S1 and S2. No gallops, murmurs, or rubs. Normal PMI, no JVD. No pulse deficits. Respiratory: Lungs have equal breath sounds bilaterally, clear to auscultation and percussion. No rales, rhonchi or wheezes noted. No increased work of breathing, no retractions or nasal flaring. Abdomen/GI: Soft, with normal bowel sounds. No distension or tympany. No guarding or rebound. No evidence of tenderness throughout. Back: No spinal tenderness. No costovertebral tenderness. Skin: Warm, dry with normal turgor. Normal color with no rashes, no lesions, and no evidence of cellulitis. MS/ Extremity: Pulses equal, no cyanosis. Neurovascular intact. Full, normal range of motion. Neuro: Awake and alert, GCS 15, oriented to person, place, time, and situation. Cranial nerves II-XII grossly intact. Motor strength 5/5 in all extremities. Sensory grossly intact. Psych: Awake, alert, with orientation to person, place and time. Behavior, mood, and affect are within normal limits Vital Signs: 03:38 BP 163 / 79; Pulse 80; Resp 18 S; Temp 98.5; Pulse Ox 99% on R/A; Weight 81.65 kg; br2 Height 6 ft. 2 in. ; Pain 4/10; 04:24 BP 158 / 80; Pulse 73; Resp 18; Pulse Ox 91% ; br2 06:09 BP 144 / 65; Pulse 77; Resp 18 S; Pulse Ox 94% on R/A; Pain 1/10; br2 03:38 Body Mass Index 23.11 (81.65 kg, 187.96 cm) br2 03:38 Pain Scale: Adult br2 06:09 Pain Scale: Adult br2 [place] Coma Score: 04:25 Eye Response: spontaneous(4). Motor Response: obeys commands(6). Verbal Response: sp4 oriented(5). Total: 15. MDM: 03:48 Medical Screening Exam initiated sp4 04:26 Differential diagnosis: Nonspecific abd pain, gastritis, viral gastroenteritis, sp4 gastroenteritis. Data reviewed: vital signs, nurses notes, lab test result(s). 05:27 Consideration of Admission/Observation Escalation of care including sp4 admission/observation considered. ED course: Improved with Medications. patient states he feels better and he would like to go home. Will advise clear liquid diet for the next 24 hours. Phenergan as needed for nausea. 05/23 03:35 Order name: CBC with Diff; Complete Time: 04:28 sp4 05/23 03:35 Order name: CMP; Complete Time: 04:28 sp4 05/23 03:35 Order name: Lipase; Complete Time: 04:28 sp4 05/23 03:36 Order name: Influenza Screen (a \T\ B); Complete Time: 04:28 sp4 05/23 03:35 Order name: IV Saline Lock; Complete Time: 03:49 sp4 05/23 03:35 Order name: Labs collected and sent; Complete Time: 03:49 sp4 Administered Medications: 03:49 Drug: NS 0.9% IV 1000 ml IV at 1000 ml once; to be given as a bolus over 60 minutes br2 Route: IV; Rate: 1000 ml; Site: right antecubital; 05:00 Follow up: IV Status: Completed infusion; IV Intake: 1000ml br2 03:50 Not Given (Physician Discretion): zofran4 mg IM once br2 03:50 Drug: Ondansetron IVP 4 mg IVP once; over 2 minutes Route: IVP; Site: right antecubital;br2 04:30 Follow up: Response: No adverse reaction; Nausea is decreased br2 04:11 Drug: Promethazine IM 50 mg IM once Route: IM; Site: right gluteus; br2 05:00 Follow up: Response: No adverse reaction br2 04:11 Drug: NS 0.9% IV 1000 ml IV at 250 ml/hr Per protocol; to be given as a bolus over 60 br2 minutes Route: IV; Rate: 250 ml/hr; Site: right antecubital; 06:11 Follow up: IV Status: Completed infusion; IV Intake: 500ml br2 Disposition Summary: 05/23/24 05:26 Discharge Ordered Notes: Location: Home sp4 Problem: new sp4 Symptoms: have improved sp4 Condition: Stable sp4 Diagnosis - Acute gastroenteritis, acute Chemotherapy related enteritis , Acute nausea sp4 Followup: sp4 - With: Private Physician - When: 7 - 10 days - Reason: Recheck today's complaints Discharge Instructions: - Discharge Summary Sheet sp4 - Clear Liquid Diet, Adult, [id number] sp4 Forms: - Patient Portal Instructions sp4 Prescriptions: - promethazine 25 mg Oral tablet - take 1 tablet ORAL route every 6 hours As needed PRN nausea; 30 tablet; sp4 Refills: 0, Product Selection Permitted Signatures: Dispatcher [employer] Jag Lieberman MD MD sp4 Courtney Dubose RN RN br2
--- NOTE | 2024-05-23 05:28 | ER ---
Nurse's Notes [facility] Name: Zeke Mackay Sr Age: 59 yrs Sex: Male : 1965 Arrival Date: 05/23/2024 Time: 03:27 Bed 5 Private MD: Diagnosis: Acute gastroenteritis, acute Chemotherapy related enteritis , Acute nausea Presentation: 05/23 03:38 Chief complaint: Patient states: WOKE UP 1 HR FILM MOUNTER WITH STOMACH ACHE, NAUSEA, BACK AND br2 RIGHT KNEE. PT IS CURRENTLY BEING TREATED FOR STOMACH CA....CHEMO ON SATURDAY. Coronavirus screen: Client denies travel out of the [place] in the last 14 days. Ebola Screen: Patient denies exposure to infectious person. Initial Sepsis Screen: Does the patient meet any 2 criteria? No. Patient's initial sepsis screen is negative. Does the patient have a suspected source of infection? No. Patient's initial sepsis screen is negative. Risk Assessment: Do you want to hurt yourself or someone else? Patient reports no desire to harm self or others. Onset of symptoms was May 23, 2024 at 02:40. 03:38 Method Of Arrival: Ambulatory br2 03:38 Acuity: RICKEY 3 br2 Triage Assessment: 03:40 General: Appears uncomfortable, Behavior is calm, cooperative. Pain: Complains of pain br2 in back, abdomen and lateral aspect of right knee Pain currently is 4 out of 10 on a pain scale. EENT: No signs and/or symptoms were reported regarding the EENT system. Neuro: [place] Agitation-Sedation Scale (RASS): 0 - Alert and Calm Level of Consciousness is awake, alert, obeys commands, Oriented to person, place, time, situation. Cardiovascular: Capillary refill < 3 seconds. Respiratory: Airway is patent Respiratory effort is even, unlabored, Respiratory pattern is regular, symmetrical. GI: Reports lower abdominal pain, upper abdominal pain, nausea. : No signs and/or symptoms were reported regarding the genitourinary system. Derm: No signs and/or symptoms reported regarding the dermatologic system. Musculoskeletal: No signs and/or symptoms reported regarding the musculoskeletal system. 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 - Infectious Disease History:: Denies. - Social history:: Smoking status: Patient denies any tobacco usage or history of. Patient uses MARIJUANA. - Family history:: not pertinent. Screenin:43 [facility] ED Fall Risk Assessment (Adult) History of falling in the last 3 months, br2 including since admission No falls in past 3 months (0 pts) Confusion or Disorientation No (0 pts) Intoxicated or Sedated No (0 pts) Impaired Gait No (0 pts) Mobility Assist Device Used No (0 pt) Altered Elimination No (0 pt) Score/Fall Risk Level 0 - 2 = Low Risk Oriented to surroundings. Abuse screen: Denies threats or abuse. Denies injuries from another. Nutritional screening: No deficits noted. Tuberculosis screening: No symptoms or risk factors identified. Assessment: 03:43 Reassessment: SEE TRIAGE ASSESSMENT. GI: Reports lower abdominal pain, upper abdominal br2 pain, nausea. 06:09 Reassessment: Patient and/or family updated on plan of care and expected duration. Pain br2 level reassessed. Patient is alert, oriented x 3, equal unlabored respirations, skin warm/dry/pink. Patient states feeling better. Patient states symptoms have improved. Vital Signs: 03:38 BP 163 / 79; Pulse 80; Resp 18 S; Temp 98.5; Pulse Ox 99% on R/A; Weight 81.65 kg; br2 Height 6 ft. 2 in. ; Pain 4/10; 04:24 BP 158 / 80; Pulse 73; Resp 18; Pulse Ox 91% ; br2 06:09 BP 144 / 65; Pulse 77; Resp 18 S; Pulse Ox 94% on R/A; Pain 1/10; br2 03:38 Body Mass Index 23.11 (81.65 kg, 187.96 cm) br2 03:38 Pain Scale: Adult br2 06:09 Pain Scale: Adult br2 [place] Coma Score: 04:25 Eye Response: spontaneous(4). Motor Response: obeys commands(6). Verbal Response: sp4 oriented(5). Total: 15. ED Course: 03:32 Patient arrived in ED. gm2 03:35 Jag Horvath MD is Attending Physician. sp4 03:38 Courtney Dubose RN is Primary Nurse. br2 03:40 Triage completed. br2 03:40 Inserted saline lock: 22 gauge in right antecubital area, using aseptic technique. br2 Blood collected. Flushed with 10 mL NS. 03:43 Patient has correct armband on for positive identification. Bed in low position. Call br2 light in reach. Side rails up X 1. Provided Education on: PLAN OF CARE. 03:49 CBC with Diff Sent. br2 03:49 CMP Sent. br2 03:49 Lipase Sent. br2 06:08 IV discontinued, intact, bleeding controlled, No redness/swelling at site. Pressure br2 dressing applied. 06:09 No provider procedures requiring assistance completed. br2 Administered Medications: 03:49 Drug: NS 0.9% IV 1000 ml IV at 1000 ml once; to be given as a bolus over 60 minutes br2 Route: IV; Rate: 1000 ml; Site: right antecubital; 05:00 Follow up: IV Status: Completed infusion; IV Intake: 1000ml br2 03:50 Not Given (Physician Discretion): zofran4 mg IM once br2 03:50 Drug: Ondansetron IVP 4 mg IVP once; over 2 minutes Route: IVP; Site: right antecubital;br2 04:30 Follow up: Response: No adverse reaction; Nausea is decreased br2 04:11 Drug: Promethazine IM 50 mg IM once Route: IM; Site: right gluteus; br2 05:00 Follow up: Response: No adverse reaction br2 04:11 Drug: NS 0.9% IV 1000 ml IV at 250 ml/hr Per protocol; to be given as a bolus over 60 br2 minutes Route: IV; Rate: 250 ml/hr; Site: right antecubital; 06:11 Follow up: IV Status: Completed infusion; IV Intake: 500ml br2 Medication: 06:09 VIS not applicable for this client. br2 Intake: 05:00 IV: 1000ml; Total: 1000ml. br2 06:11 IV: 500ml; Total: 1500ml. br2 Outcome: 05:26 Discharge ordered by . sp4 06:09 Discharged to home ambulatory, br2 06:09 Condition: good 06:09 Discharge instructions given to patient, Instructed on discharge instructions, Demonstrated understanding of instructions, medications, Prescriptions given X 06:12 Patient left the ED. br2 Signatures: Jag Horvath MD MD sp4 Trina Reynoso gm2 Courtney Dubose RN RN br2
[2024-05-23 06:27] VITALS: TEMP 98.5
[2024-05-23 06:31] VITALS: BP 144/65; O2SAT 94
== END 2024-05-23 06:12 | disposition home or self-care (01) ==
LOC: ER 03:27
DX: K52.1 Toxic gastroenteritis and colitis (principal); T45.1X5A Adverse effect of antineoplastic and immunosuppressive drugs, initial encounter; K52.9 Noninfective gastroenteritis and colitis, unspecified; C16.2 Malignant neoplasm of body of stomach; Z95.1 Presence of aortocoronary bypass graft
CPT/HCPCS: 96361; 85025; 36415; 83690; 80053; 87804 ×2; 96372; 96374; 99284; J2405; J7030

== ENCOUNTER 2024-06-04 14:14 | Emergency (ER) | payer OTHER ==
--- OUTSIDE RECORDS SUMMARY | 2024-06-04 14:20 | XMS REPORT | Clinical Summary ---
Author Name Unknown Organization [facility] Address [address] [place] [address] Care Team Providers Care Plant Protection Officer Name Role Phone Margoth Souza MD Primary Care Provider [phone] Mary Jane Cassidy MD Unavailable [phone] Barry He MD Unavailable Patience Hunt MD Unavailable Eagle Zhu DO Unavailable [phone] Marianela Hutchinson MD Unavailable [phone] Margoth Souza MD Unavailable Ceci Nicholson MD Unavailable [phone] Marianela Hutchinson MD Primary Care Provider [phone] Allergies No known active allergies Medications metFORMIN [...] relieved by Tylenol). 60 mL 3:43 PM GUIDE RAIL CLEANER 04/15/20 24 Active Additional Information Patient not [...] 9% indicating poor diabetic control 01/02/2024 04/14/2024 long-term current use of systemic steroid 01/02/2024 04/14/2024 Diabetic ketoacidosis 2023 Overview (01/01/2024): Hospitalized locally 12/03/2023-12/06/2023 Encounters Date Type Department Care Team Description 06/03/2024 5:30 PM GUIDE RAIL CLEANER [facility] [address] [facility], 8th [place] [address] Marianela Hutchinson MD Lewandowski, Teresa M, RN Adenocarcinoma of stomach (Primary Dx) 06/03/2024 Travel 06/02/2024 Telephone [facility] [address] [facility], 7th [place] [address] Mony Saavedra, RN 06/01/2024 1:00 PM GUIDE RAIL CLEANER Infusion [facility] - [facility] [address] [facility], [facility], Floor 6 [place] [address] Marianela Hutchinson MD Shaik, Anna Marie B, RN Adenocarcinoma of stomach (Primary Dx); Iron deficiency anemia, not otherwise specified 06/01/2024 10:53 AM GUIDE RAIL CLEANER - 06/01/2024 11:59 PM GUIDE RAIL CLEANER Hospital Encounter [facility] [address] [place] [address], [place] [address] Marianela Hutchinson MD Adenocarcinoma of stomach; Iron deficiency anemia, not otherwise specified Discharge Disposition: Home 06/01/2024 Orders Only [facility] [address] [place] [address], 7th [place] [address] Marianela Hutchinson MD 06/01/2024 Orders Only [facility] [address] [place] [address], 7th [place] [address] Radha Castellon [facility] Adenocarcinoma of stomach (Primary Dx); Iron deficiency anemia, not otherwise specified 06/01/2024 Travel 06/01/2024 Orders Only [facility] - Ambulatory Treatment Center [address] [place] [address], Floor 6 [place] [address] Marianela Hutchinson MD Adenocarcinoma of stomach (Primary Dx) 05/26/2024 Telephone [facility] - Gastroenterology, Hepatology & Nutrition [address] [place] [address], 7th [place] [address] Arnaldo Araujo PA-C 05/22/2024 Telephone [facility] - Gastroenterology, Hepatology & Nutrition [address] [place] [address], 7th [place] [address] Arnaldo Araujo PA-C 05/22/2024 Orders Only [facility] - Gastroenterology, Hepatology & Nutrition [address] [place] [address], 7th [place] [address] Arnaldo Araujo PA-C Candidal esophagitis (Primary Dx) 05/20/2024 4:30 PM GUIDE RAIL CLEANER - 05/20/2024 11:59 PM GUIDE RAIL CLEANER Hospital Encounter Ambulatory Treatment Center - [address], 2nd Floor, [place] [address] Marianela Hutchinson MD Lewandowski, Teresa M, RN Adenocarcinoma of stomach Discharge Disposition: Home 05/19/2024 12:44 PM GUIDE RAIL CLEANER Anesthesia Event [facility] [address] [place] [address], 5th [place] [address] Maurice Ferrera MD [facility] 05/19/2024 12:00 PM GUIDE RAIL CLEANER - 05/19/2024 1:10 PM GUIDE RAIL CLEANER Surgery [facility] [address] [place] [address], 5th [place] [address] Brandon Alcala MD UPPER GASTROINTESTINAL ENDOSCOPY OF ESOPHAGUS, STOMACH, OR DUODENUM ANDJ ADJACENT STRUCTURES, WITH ENDOSCOPIC ULTRASOUND EXAMINATION 05/19/2024 11:17 AM GUIDE RAIL CLEANER - 05/19/2024 2:49 PM GUIDE RAIL CLEANER Hospital Encounter Endoscopy Center [address] [place] [address], 5th [place] [address] Brandon Alcala MD Adenocarcinoma of stomach Discharge Disposition: Home 05/19/2024 Travel 05/18/2024 1:00 PM GUIDE RAIL CLEANER Infusion [facility] [address] [place] [address] [facility], Floor 6 [place] [address] Marianela Hutchinson MD Biscocho, Alexa, ARTURO Adenocarcinoma of stomach (Primary Dx) 05/18/2024 12:20 PM GUIDE RAIL CLEANER Follow-Up [facility] [address] [place] [address], 7th [place] [address] Marianela Hutchinson MD Adenocarcinoma, NOS of stomach, NOS 05/18/2024 11:00 AM GUIDE RAIL CLEANER POEM Appointments [facility] [address] [place] [address], 6th [place] [address] Marianela Hutchinson MD 05/18/2024 10:32 AM GUIDE RAIL CLEANER - 05/18/2024 11:59 PM GUIDE RAIL CLEANER Hospital Encounter [facility] [address] [place] [address], [place] [address] Gillian Gomez PA-C Adenocarcinoma, NOS of stomach, NOS Discharge Disposition: Home 05/18/2024 Orders Only [facility] [address] [place] [address], 7th [place] [address] Marianela Hutchinson MD Adenocarcinoma of stomach (Primary Dx) 05/18/2024 Orders Only [facility] [address] [place] [address], 7th [place] [address] Radha Castellon [facility] Adenocarcinoma of stomach (Primary Dx); Iron deficiency anemia, not otherwise specified 05/18/2024 Travel 05/15/2024 11:59 PM GUIDE RAIL CLEANER Anesthesia Event [facility] [address] [place] [address], 6th [place] [address] Eri Lynne, RN 05/06/2024 5:30 PM GUIDE RAIL CLEANER [facility] [place] [address] [facility], 8th [place] [address] Marianela Hutchinson MD Pagara, Leni S RN Adenocarcinoma of stomach 05/04/2024 12:36 PM GUIDE RAIL CLEANER - 05/04/2024 11:59 PM GUIDE RAIL CLEANER Hospital Encounter Ambulatory Treatment Center - [address], 2nd Floor, [place] [address] Gillian Gomez PA-C Jo, Edifia Sungsoon, RN Adenocarcinoma of stomach (Primary Dx) Discharge Disposition: Home 05/04/2024 12:20 PM GUIDE RAIL CLEANER [facility] [address] [place] [address], 7th [place] [address] Marianela Hutchinson MD Adenocarcinoma, NOS of stomach, NOS 05/04/2024 11:10 AM GUIDE RAIL CLEANER - 05/04/2024 12:35 PM GUIDE RAIL CLEANER Hospital Encounter [facility] [address] [place] [address], [place] [address] Gillian Gomez PA-C Adenocarcinoma, NOS of stomach, NOS; Adenocarcinoma of stomach Discharge Disposition: Home 05/04/2024 Orders Only [facility] [address] [place] [address], 7th [place] [address] Marianela Hutchinson MD Adenocarcinoma of stomach (Primary Dx) 05/04/2024 Orders Only [facility] [address] [place] [address] Main [facility], 7th [place] [address] Radha Castellon, [facility] Adenocarcinoma of stomach (Primary Dx) 05/04/2024 Travel 04/30/2024 Orders Only [facility] - Surgical Oncology [address] [place] [address], 7th [place] [address] Mary Kay Santamaria APRN Adenocarcinoma of stomach (Primary Dx); Paroxysmal atrial fibrillation; Hyperlipidemia, not otherwise specified; Type 2 diabetes mellitus with hyperglycemia 04/27/2024 8:05 PM GUIDE RAIL CLEANER Ancillary Procedure Image Library [address] [place] [address] Cancer 04/27/2024 8:00 PM GUIDE RAIL CLEANER Ancillary Procedure Image Library [address] [place] [address] Cancer 04/27/2024 Orders Only [facility] [address] [place] [address], 7th [place] [address] Donnell Van Adenocarcinoma of stomach (Primary Dx) 04/24/2024 Documentation [facility] Procedures [facility] [address] [facility], 8th [place] [address] Mary Kay Santamaria APRN 04/24/2024 Orders Only [facility] - Surgical Oncology [address] [place] [address], 7th [place] [address] Mary Kay Santamaria APRN Adenocarcinoma, NOS of stomach, NOS (Primary Dx) 04/24/2024 Telephone [facility] - Surgical Oncology [facility] Main [facility], 7th [place] [address] Mary Kay Santamaria APRN 04/22/2024 Lab Requisition [facility] Sincere Moralez MD Jain, Shilpa, MD 04/21/2024 Orders Only [facility] [address] [place] [address] Main dg, 7th [place] [address] Gillian Gomez PA-C Adenocarcinoma, NOS of stomach, NOS (Primary Dx); Adenocarcinoma of stomach 04/16/2024 Telephone [facility] ASKVTA PHYSICIAN [address] [place] [address] 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, rhia Call 04/15/2024 10:09 AM GUIDE RAIL CLEANER Anesthesia Event MAIN OR [address] [place] [address] Meenakshi Crowe MD Miller, Wendy, RESIDENTIAL LIFE DIRECTOR 04/15/2024 10:05 AM GUIDE RAIL CLEANER - 04/15/2024 1:25 PM GUIDE RAIL CLEANER Surgery MAIN OR [address] [place] [address] John Fong MD ROBOTIC ASSISTED SURGICAL LAPAROSCOPY 04/15/2024 7:32 AM GUIDE RAIL CLEANER - 04/15/2024 11:50 PM GUIDE RAIL CLEANER Hospital Encounter MAIN OR [address] [place] [address] John Fong MD Adenocarcinoma of stomach (Primary Dx) Discharge Disposition: Home 04/15/2024 Travel 04/14/2024 2:30 PM GUIDE RAIL CLEANER Consult [facility] - Surgical Oncology [address] [place] [address] Main [facility], 7th [place] [address] Gillian Gomez PA-C Badgwell, Brian, MD Adenocarcinoma, NOS of stomach, NOS (Primary Dx); Nausea 04/14/2024 Documentation [facility] - Surgical Oncology [address] [place] [address] Main [facility], 7th [place] [address] John Fong MD 04/13/2024 3:00 PM GUIDE RAIL CLEANER Consult [facility] [address] [place] [address] Main [facility], 7th [place] [address] Marianela Hutchinson MD Mass of stomach (Primary Dx) 04/13/2024 2:02 PM GUIDE RAIL CLEANER Anesthesia Event [facility] [address] [place] [address], 6th [place] [address] Curtis Moctezuma PA 04/12/2024 8:22 AM GUIDE RAIL CLEANER - 04/12/2024 3:42 PM [facility] Emergency MAIN P06B [address] [place] [address] Nghia Zhu MD Elsayem, Ahmed, MD Nausea and vomiting (Primary Dx); Gastric cancer; Pancreatitis Discharge Disposition: Left Against Medical Advice 04/12/2024 Travel 04/09/2024 8:25 PM GUIDE RAIL CLEANER Ancillary Procedure Image [facility] [address] [place] [address] Margoth Souza MD Cancer 04/09/2024 8:20 PM GUIDE RAIL CLEANER Ancillary Procedure Image [facility] [address] [place] [address] Margoth Souza MD Cancer 04/09/2024 8:15 PM GUIDE RAIL CLEANER Ancillary Procedure Image [facility] [address] [place] [address] Margoth Souza MD Cancer 04/09/2024 8:10 PM GUIDE RAIL CLEANER Ancillary Procedure Image [facility] [address] [place] [address] Margoth Souza MD Cancer 04/09/2024 8:05 PM GUIDE RAIL CLEANER Ancillary Procedure Image Library [address] [place] [address] Margoth Souza MD Cancer 04/09/2024 8:00 PM GUIDE RAIL CLEANER Ancillary Procedure Image Library [address] [place] [address] Margoth Souza MD Cancer 04/09/2024 10:48 AM GUIDE RAIL CLEANER - 04/09/2024 11:59 PM GUIDE RAIL CLEANER Hospital Encounter [facility] [address] [place] [address], [place] [address] Ceci Nicholson MD Encounter for other preprocedural examination; Atherosclerosis of coronary 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, not otherwise specified; 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 Discharge Disposition: Home 04/09/2024 10:00 AM GUIDE RAIL CLEANER POEM Appointments [facility] [address] [place] [address], 6th [place] [address] Margoth Souza MD 04/09/2024 9:56 AM GUIDE RAIL CLEANER - 04/09/2024 10:47 AM GUIDE RAIL CLEANER Hospital Encounter [facility] Cardiology [address] [place] [address], 2nd [place] [address] Ceci Nicholson MD Adenocarcinoma of stomach; Hyperlipidemia, not otherwise specified; Encounter for other preprocedural examination; Atherosclerosis of coronary 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, not otherwise specified Discharge Disposition: Home 04/09/2024 9:00 AM GUIDE RAIL CLEANER Consult Perioperative Evaluation and Management [address] [place] [address], [facility] [place] [address] Mary Kay Santamaria APRN Misoi, Mercy W, MD Encounter for other preprocedural examination (Primary Dx); Adenocarcinoma of stomach; Paroxysmal atrial fibrillation; Hypertension; 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; Hyperlipidemia, not otherwise specified; Current use of 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 04/08/2024 Orders Only [facility] [address] [place] [address], 7th [place] [address] Gillian Gomez PA-C Adenocarcinoma, NOS of stomach, NOS (Primary Dx) 04/06/2024 Orders Only [facility] [address] [facility], 7th [place] [address] Roberto Poole PA 04/06/2024 [facility] [address] [place] [address], 7th [place] [address] Roberto Poole PA Mass of stomach (Primary Dx) 04/06/2024 Orders Only [facility] [address] [place] [address], 7th [place] [address] Roberto Poole PA Mass of stomach (Primary Dx) 04/06/2024 Telephone [facility] [address] [place] [address], [facility] [place] [address] Anais Meng RN 02/11/2024 Travel 02/10/2024 3:30 PM CDT Telemedicine [facility] [address] [place] [address], 7th [place] [address] Margoth Souza MD Renal mass (Primary Dx) 01/02/2024 7:15 AM CDT Ancillary Procedure MAIN OR [address] [place] [address] Margoth Souza MD 01/02/2024 7:00 AM CDT - 01/02/2024 11:40 AM CDT Surgery MAIN OR [address] [place] [address] Margoth Souza MD ROBOTIC ASSISTED PARTIAL NEPHRECTOMY 01/02/2024 6:58 AM CDT Anesthesia Event MAIN OR [address] [place] [address] Alonzo Liu MD Majekodumi, Jessy, PAXTON 01/02/2024 5:04 AM CDT - 01/03/2024 5:05 PM CDT Hospital Encounter MAIN P09B [address] [place] [address] Margoth Souza MD Renal mass (Primary Dx) Discharge Disposition: Home 01/02/2024 Travel 12/31/2023 1:04 PM CDT - 12/31/2023 11:59 PM CDT Hospital Encounter Main CT IMAGING [address] [place] [address], 3rd [place] [address] Margoth Souza MD Renal mass Discharge Disposition: Home 12/31/2023 8:00 AM CDT Consult Endocrine Center [address] [place] [address], [facility] [place] [address] Nakia Kirby APRN Khan, Sonya, MD Type 2 diabetes mellitus with hyperglycemia [E11.65] (Primary Dx); Pre-surgery evaluation 12/30/2023 9:30 AM CDT Office Visit [facility] [address] [place] [address], 7th [place] [address] Margoth Souza MD Renal mass 12/30/2023 Travel 12/30/2023 Telephone Endocrine Center [address] [place] [address], [facility] [place] [address] Winnie Archibald RN Appointment (Cannot get internet-phone broke) 12/30/2023 Orders Only [facility] [address] [place] [address], 7th [place] [address] Roberto Poole PA Renal mass (Primary Dx) 12/29/2023 Orders Only Endocrine Center [address] [place] [address], [facility] [place] [address] Veronica Del Castillo APRN 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); Endocrine/metabolic screening; Renal cell carcinoma <Left side> 12/25/2023 8:36 AM CDT Anesthesia Event [facility] [address] [place] [address], [facility] [place] [address] Lien Antonio, RN 12/23/2023 10:30 AM CDT Consult Perioperative Evaluation and Management [address] [place] [address], 6th [place] [address] Margoth Souza MD Oh, Jeong, MD Encounter for other preprocedural examination (Primary Dx); Renal mass; Hyperlipidemia, not otherwise specified 12/23/2023 9:00 AM CDT POEM Appointments [facility] [address] [place] [address], [address] [place], [place] [address] [address] Margoth Souza MD Pre-surgery evaluation (Primary Dx) 12/23/2023 8:45 AM CDT - 12/23/2023 11:59 PM CDT Hospital Encounter [facility] [address] [place] [address] Margoth Souza MD Renal mass Discharge Disposition: Home 12/23/2023 Travel 12/09/2023 9:33 AM CDT - 12/09/2023 11:59 PM CDT Hospital Encounter [facility] [address] [place] [address] Veronica Del Castillo APRN 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; Endocrine/metabolic screening Discharge Disposition: Home 12/09/2023 8:30 AM CDT Consult Endocrine Center [address] [place] [address], [address] [place], [place] [address] [phone] Mary Jane Cassidy MD 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); Endocrine/metabolic screening; Renal cell carcinoma <Left side> 12/09/2023 Travel 10/23/2023 Orders Only [facility] [address] [place] [address], 7th [place] [address] Roberto Poole PA Renal mass (Primary Dx); Adrenal mass 10/03/2023 9:30 AM CDT - 10/03/2023 11:59 PM CDT Hospital Encounter Interventional Radiology [address] [place] [address], 4th [place] [address] Shazia Arriaza MD McRae, Stephen, MD Renal mass Discharge Disposition: Home 10/03/2023 8:30 AM CDT - 10/03/2023 9:29 AM CDT Hospital Encounter [facility] [address] [place] [address] Margoth Souza MD Renal mass Discharge Disposition: Home 10/03/2023 Travel 10/02/2023 8:24 AM CDT - 10/02/2023 11:59 PM CDT Hospital Encounter Interventional Radiology [address] [place] [address], 4th [place] [address] Margoth Souza MD Ho, Thanh-Trang D, PA-C Encounter for other preprocedural examination (Primary Dx); Renal mass; 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 Discharge Disposition: Home 10/02/2023 Travel 09/24/2023 7:46 AM CDT - 09/24/2023 11:59 PM CDT Hospital Encounter [facility] [address] [place] [address] Roberto Poole PA Adrenal mass Discharge Disposition: Home 09/20/2023 Orders Only [facility] [address] [place] [address], 7th [place] [address] Roberto Poole PA Adrenal mass (Primary Dx) 09/19/2023 11:45 AM CDT Ancillary Procedure X-Ray Outpatient Center [address] [place] [address], 7th [place] [address] Shazia Arriaza MD Renal mass 09/19/2023 9:20 AM CDT - 09/19/2023 11:59 PM CDT Hospital Encounter [facility] [address] [place] [address] Shazia Arriaza MD Adenoma, NOS of adrenal gland, NOS <Left> Discharge Disposition: Home 09/19/2023 Orders Only Interventional Radiology [address] [place] [address], 4th [place] [address] Abilio Ng PA-C Renal mass (Primary Dx) 09/19/2023 Travel 09/19/2023 Telephone MD Gim[facility] [address] [place] [address] Barbara Rees MA 09/16/2023 4:00 PM CDT - 09/16/2023 11:59 PM CDT Hospital Encounter [facility] [address] [place] [address] Shazia Arriaza MD Renal mass; Adrenal mass Discharge Disposition: Home 09/16/2023 2:00 PM CDT Office Visit [facility] [address] [place] [address], 7th [place] [address] Margoth Souza MD Renal mass (Primary Dx); Adrenal mass; Adenoma, NOS of adrenal gland, NOS <Left>; 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 09/16/2023 12:30 PM CDT NPR MDA PATIENT ACCESS 09/16/2023 Travel 08/08/2023 8:00 PM CDT Ancillary Procedure Image Library [address] [place] [address] Margoth Souza MD Cancer 08/08/2023 6:40 AM CDT Ancillary Procedure Image Library [address] [place] [address] Margoth Souza MD Cancer after 06/05/2023 Surgical History Surgery Date Site/Laterality Comments TOE AMPUTATION x2, 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, 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 APPENDECTOMY 05/20/1973 - 05/19/1974 Open WRIST SURGERY Left HAND SURGERY Right HIP ARTHRODESIS W/ ILIAC CRE ST BONE GRAFT Bilateral For hand surgeries CERVICAL SPINE SURGERY C3-6 fusion, x2 TN LAPAROSCOPY SURG PARTIAL NEPHRECTOMY 01/02/2024 Abdomen/Left Procedure: ROBOTIC ASSISTED PARTIAL NEPHRECTOMY; Surgeon: Margoth Souza MD; Location: MAIN OR; Service: UROLOGY CHG ULTRASONIC GUIDANCE INTRAOPERATIVE 01/02/2024 Left Procedure: INTROPERATIVE ULTRASOUND - PERFORMED BY SURGEON; Surgeon: Margoth Souza MD; Location: MAIN OR; Service: UROLOGY CORONARY ARTERY BYPASS GRAFT 01/07/2024 TN LAPS ABD PRTM&OMENTUM DX W/WO SPEC BR/WA [...] surgery are in the Medical Devices section. TN INSJ TUNNELED CTR VAD W/S UBQ PORT AGE 5 YR/> 04/15/2024 Neck/N/A Procedure: PORT-A-CATH PLACEMENT; Surgeon: John Fong MD; Location: MAIN OR; Service: SURG ONC - GASTRIC/HIPEC Medical devices from this surgery are in the Medical Devices section. TN ESOPHAGOGASTRODUODENOSCOP Y US SCOPE W/ADJ STRXRS 05/19/2024 [...] on file Legal Sex Male 11:38 AM GUIDE RAIL CLEANER Gender Identity Not on file Sexual Orientation Not on file Occupation Industry Job Start Date Job End Date retired from [employer] Not on file N ot on file Not on file Travel History Travel Start Travel End [place] 04/12/2024 04/12/2024 Obstetrics History Last Filed Vital Signs Vital Sign Reading Time Taken Comments Blood Pressure 157/82 06/03/2024 5:49 PM GUIDE RAIL CLEANER Pulse 75 06/03/2024 5:33 PM GUIDE RAIL CLEANER Temperature 37.1 C (98.8 F) 06/03/2024 5:33 PM CS T Respiratory Rate 18 06/03/2024 5:33 PM GUIDE RAIL CLEANER Oxygen Saturation 98% 06/03/2024 5:33 PM GUIDE RAIL CLEANER Inhaled Oxygen Concentration - - Weight 81.6 kg (179 lb 14.3 oz) 06/03/2024 5:33 PM GUIDE RAIL CLEANER Height 188 cm (6' 2") 05/19/2024 11:53 AM GUIDE RAIL CLEANER Body Mass Index 23.1 05/19/2024 11:53 AM GUIDE RAIL CLEANER Plan of Treatment Upcoming Encounters Date Type Department Care Team (Latest Contact Info) Description 06/11/2024 2:00 PM GUIDE RAIL CLEANER Telemedicine [facility] - Surgical Oncology [address] [place] [address], [address] [place] [address] John Fong MD [address] [place] [address] [email or web address] 06/15/2024 11:30 AM GUIDE RAIL CLEANER Appointment [facility] [address] [place] [address] Marianela Hutchinson MD [address] [place] [address] [email or web address] 06/15/2024 12:40 PM GUIDE RAIL CLEANER Follow-Up [facility]astro[facility] [address] [place] [address], [address] [place] [address] Marianela Hutchinson MD [address] [place] [address] [email or web address] 06/15/2024 1:30 PM GUIDE RAIL CLEANER Infusion [facility] [address] [facility], 8th [place] [address] Marianela Hutchinson MD [address] [place] [address] [email or web address] 06/29/2024 10:00 AM GUIDE RAIL CLEANER Infusion [facility] [address] [facility], Floor 6 [place] [address] [place] [address] [place] [phone] [email or web address] 07/13/2024 10:30 AM GUIDE RAIL CLEANER Infusion [facility] [address] [place] [address], Floor 6 [place] [address] Marianela Hutchinson MD [address] [place] [address] [email or web address] 07/15/2024 10:15 AM GUIDE RAIL CLEANER Appointment [facility] [address] [place] [address], [place] [address] Mary Kay Santamaria APRN [address] [place] [address] [email or web address] 07/15/2024 11:15 AM GUIDE RAIL CLEANER Appointment Cardiopulmonary Center [address] [place] [address], 6th [place] [address] Mary Kay Santamaria APRN [facility] [place] [address] [email or web address] 07/15/2024 12:15 PM GUIDE RAIL CLEANER Appointment Main CT IMAGING [address] [facility] Main dg, 3rd [place] [address] Mary Kay Santamaria, ADJUNCT INSTRUCTOR [address] [place] [address] [email or web address] 07/16/2024 9:30 AM GUIDE RAIL CLEANER Office Visit [facility] - Surgical Oncology [address] [facility], 7th [place] [address] John Fong MD [address] [place] [address] [email or web address] 07/16/2024 10:00 AM GUIDE RAIL CLEANER Nutrition Clinical Nutrition For your Nutrition appointment location directions please call: Mary Kay Santamaria, FRANK [facility] [place] [address] [email or web address] Ng, SCOTT [address] [facility] [address] [place] [address] [email or web address] 07/24/2024 7:00 AM GUIDE RAIL CLEANER Hospital Encounter MAIN OR [facility] [place] [address] John Fong MD [address] [place] [address] [email or web address] 07/24/2024 7:00 AM GUIDE RAIL CLEANER - 07/24/2024 2:05 PM GUIDE RAIL CLEANER Surgery MAIN OR [address] [place] [address] John Fong MD [address] [place] [address] [email or web address] ROBOTIC ASSISTED SUBT[place] [id number] 07/27/2024 9:00 AM CDT Infusion [facility] [address] [facility], Floor 6 [place] [address] Marianela Hutchinson MD [address] [place] [address] [email or web address] 08/24/2024 9:45 AM CDT Appointment [facility] [address] [place] [address], [place] [address] Marianela Hutchinson MD [address] [place] [address] [email or web address] 02/05/2025 10:45 AM CDT Lab [facility] [address] [place] [address], [address] [facility] [place] [address] Margoth Souza MD [address] [place] [address] [email or web address] 02/05/2025 11:15 AM CDT Ancillary Procedure X-Ray Outpatient Center [address] [place] [address], 7th Floor [facility] [place] [address] Margoth Souza MD [address] [place] [address] [email or web address] 02/05/2025 12:20 PM CDT Ancillary Procedure CT Imaging [address] [place] [address], 7th Floor [facility] [place] [address] Margoth Souza MD [address] [place] [phone] [email or web address] 02/08/2025 2:30 PM CDT Telemedicine Genitourinary Cancer Center [address] [facility], 7th [place] [address] Margoth Souza MD [address] [place] [address] [email or web address] Scheduled Procedures Name Priority Associated Diagnoses Date/Ti me ROBOTIC ASSISTED SUBT[place] [id number] Adenocarcinoma of stomach 07/24/2024 7:00 AM GUIDE RAIL CLEANER PARTIAL DISTAL GASTRECTOMY WITH FELIZ-EN-Y RECONSTRUCTION Adenocarcinoma of stomach 07/24/2024 7:00 AM GUIDE RAIL CLEANER Health Maintenance Due Date Last Done Comments COVID-19 Vaccine (#1) 01/09/1969 Pneumococcal Vaccine: Pediat rics (0 to 5 Years) and At-Risk Patients (6 to 64 Years) (1 of 2 - PCV) 01/09/1970 01/09/1975 Influenza Vaccine (#1) 2024 08/04/2018 Medical Devices Implanted Type Area [employer] Repairer Device Identifier Shelf Expiration Date Model / Serial / Lot PwSlade marks 6fr - [id number] Implanted:Qty: 1 on 04/15/2024 by John Fong MD at [facility] Implant Right: Neck BARD [employer]ESS SYSTEMS 12/17/2024 [id number] / / [id number] Procedures Procedure Name Priority Date/Time Associated Diagnosis Comments .CBC Routine 06/01/2024 11:10 AM GUIDE RAIL CLEANER Adenocarcinoma of stomach TRANSFERRIN Routine 06/01/2024 11:10 AM GUIDE RAIL CLEANER Iron deficiency anemia, not otherwise specified Adenocarcinoma of stomach FERRITIN Routine 06/01/2024 11:10 AM GUIDE RAIL CLEANER Iron deficiency anemia, not otherwise specified Adenocarcinoma of stomach IRON LEVEL Routine 06/01/2024 11:10 AM GUIDE RAIL CLEANER Iron deficiency anemia, not otherwise specified Adenocarcinoma of stomach COMPREHENSIVE METABOLIC PANEL Routine 11:10 AM GUIDE RAIL CLEANER Adenocarcinoma of stomach COMPLETE BLOOD COUNT W/ DIFFERENTIAL Routine 06/01/2024 11:10 AM GUIDE RAIL CLEANER Adenocarcinoma of stomach POC GLUCOSE SCREEN Routine 05/19/2024 1:52 PM GUIDE RAIL CLEANER PATHOLOGY BIOPSY INTERPRETATION Routine 05/19/2024 1:10 PM GUIDE RAIL CLEANER Adenocarcinoma of stomach TN ESOPHAGOGASTRODUODENOSCOP Y US SCOPE W/ADJ STRXRS 05/19/2024 12:34 PM GUIDE RAIL CLEANER Adenocarcinoma of stomach Case Notes 04/24- WAITING FOR TRIAGE TO VT FOR 05/01-BJ 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 [employer] Call Completed 04/30/24ad laproscopy on 04/15/24 POC GLUCOSE SCREEN Routine 05/19/2024 12:21 PM GUIDE RAIL CLEANER .CBC Routine 05/18/2024 10:55 AM GUIDE RAIL CLEANER Adenocarcinoma, NOS of stomach, NOS CARCINOEMBRYONIC ANTIGEN Routine 024 10:55 AM GUIDE RAIL CLEANER Adenocarcinoma, NOS of stomach, NOS LACTATE DEHYDROGENASE Routine 05/18/2024 10:55 AM GUIDE RAIL CLEANER Adenocarcinoma, NOS of stomach, NOS PHOSPHORUS LEVEL Routine 05/18/2024 10:55 AM GUIDE RAIL CLEANER Adenocarcinoma, NOS of stomach, NOS MAGNESIUM LEVEL Routine 05/18/2024 10:55 AM GUIDE RAIL CLEANER Adenocarcinoma, NOS of stomach, NOS COMPREHENSIVE METABOLIC PANEL Routine 10:55 AM GUIDE RAIL CLEANER Adenocarcinoma, NOS of stomach, NOS COMPLETE BLOOD COUNT W/ DIFFERENTIAL Routine 05/18/2024 10:55 AM GUIDE RAIL CLEANER Adenocarcinoma, NOS of stomach, NOS .CBC Routine 05/04/2024 11:34 AM GUIDE RAIL CLEANER Adenocarcinoma, NOS of stomach, NOS RESEARCH PROTOCOL [id number] Routine 05/04 11:34 AM GUIDE RAIL CLEANER Adenocarcinoma of stomach CARCINOEMBRYONIC ANTIGEN Routine 024 11:34 AM GUIDE RAIL CLEANER Adenocarcinoma, NOS of stomach, NOS LACTATE DEHYDROGENASE Routine 05/04/2024 11:34 AM GUIDE RAIL CLEANER Adenocarcinoma, NOS of stomach, NOS PHOSPHORUS LEVEL Routine 05/04/2024 11:34 AM GUIDE RAIL CLEANER Adenocarcinoma, NOS of stomach, NOS MAGNESIUM LEVEL Routine 05/04/2024 11:34 AM GUIDE RAIL CLEANER Adenocarcinoma, NOS of stomach, NOS COMPREHENSIVE METABOLIC PANEL Routine 11:34 AM GUIDE RAIL CLEANER Adenocarcinoma, NOS of stomach, NOS COMPLETE BLOOD COUNT W/ DIFFERENTIAL Routine 05/04/2024 11:34 AM GUIDE RAIL CLEANER Adenocarcinoma, NOS of stomach, NOS VERIFY CATHETER TIP PLACEMENT Routine 3:50 PM GUIDE RAIL CLEANER Adenocarcinoma of stomach POC GLUCOSE SCREEN Routine 04/15/2024 3:21 PM GUIDE RAIL CLEANER XR CHEST 1 VW PORTABLE Routine 2:45 PM GUIDE RAIL CLEANER POC GLUCOSE SCREEN Routine 04/15/2024 1:05 PM GUIDE RAIL CLEANER POC GLUCOSE SCREEN Routine 04/15/2024 12:52 PM GUIDE RAIL CLEANER CYTOLOGY NON-OFFICIAL COURT INTERPRETER INTERPRETATION Routine 04/15/2024 12:33 PM GUIDE RAIL CLEANER Adenocarcinoma of stomach PATHOLOGY SURGICAL INTERPRETATION Routine 04/15/2024 12:13 PM GUIDE RAIL CLEANER Adenocarcinoma of stomach FL CENTRAL VENOUS PLACE EXCHANGE Routine 04/15/2024 11:40 AM GUIDE RAIL CLEANER Adenocarcinoma of stomach POC GLUCOSE SCREEN Routine 04/15/2024 9:22 AM GUIDE RAIL CLEANER TN INSJ TUNNELED CTR VAD W/SUBQ PORT AGE 5 YR/> 04/15/2024 9:16 AM GUIDE RAIL CLEANER Adenocarcinoma of stomach Special Needs MTL@0800 CHG US VASC ACCESS SITS VSL PATENCY NDL ENTRY 04/15/2024 9:16 AM GUIDE RAIL CLEANER Adenocarcinoma of stomach Special Needs MTL@0800 CHG FLUORO CENTRAL VENOUS ACCESS DEV PLACEMENT 04/15/2024 9:16 AM GUIDE RAIL CLEANER Adenocarcinoma of stomach Special Needs MTL@0800 TN LAPS ABD PRTM&OMENTUM DX W/WO SPEC BR/WA SPX 04/15/2024 9:16 AM GUIDE RAIL CLEANER Adenocarcinoma of stomach Special Needs MTL@0800 CT ABDOMEN PELVIS W CONTRAST Routine 11:18 AM GUIDE RAIL CLEANER .CBC Routine 04/12/2024 9:04 AM GUIDE RAIL CLEANER LIPASE LEVEL Routine 04/12/2024 9:04 AM GUIDE RAIL CLEANER AMYLASE LEVEL Routine 04/12/2024 9:04 AM GUIDE RAIL CLEANER LACTATE DEHYDROGENASE Routine 04/12/2024 9:04 AM GUIDE RAIL CLEANER FRACTIONATED BILIRUBIN Routine 9:04 AM GUIDE RAIL CLEANER PHOSPHORUS LEVEL Routine 04/12/2024 9:04 AM GUIDE RAIL CLEANER MAGNESIUM LEVEL Routine 04/12/2024 9:04 AM GUIDE RAIL CLEANER COMPREHENSIVE METABOLIC PANEL Routine 9:04 AM GUIDE RAIL CLEANER COMPLETE BLOOD COUNT W/ DIFFERENTIAL Routine 04/12/2024 9:04 AM GUIDE RAIL CLEANER .CBC Routine 04/09/2024 11:09 AM GUIDE RAIL CLEANER Encounter for other preprocedural examination Atherosclerosis of coronary 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, not otherwise specified THYROID STIMULATING HORMONE Routine 03/21 11:09 AM GUIDE RAIL CLEANER Encounter for other preprocedural examination Atherosclerosis of coronary 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, not otherwise specified HEMOGLOBIN A1C Routine 04/09/2024 11:09 AM GUIDE RAIL CLEANER 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 Encounter for other preprocedural examination COMPREHENSIVE METABOLIC PANEL Routine 11:09 AM GUIDE RAIL CLEANER Encounter for other preprocedural examination Atherosclerosis of coronary 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, not otherwise specified COMPLETE BLOOD COUNT W/ DIFFERENTIAL Routine 04/09/2024 11:09 AM GUIDE RAIL CLEANER Encounter for other preprocedural examination Atherosclerosis of coronary 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, not otherwise specified EKG, 12-LEAD (SCHEDULED) Routine 04/09/2024 Adenocarcinoma of stomach Hyperlipidemia, not otherwise specified Encounter for other preprocedural examination Atherosclerosis of coronary 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, not otherwise specified PATHOLOGY OUTSIDE INTERPRETATION Routine 04/02/[address] ABDOMEN AND PELVIS Routine 2023 8:21 AM GUIDE RAIL CLEANER Cancer OSI CHEST Routine 03/23/2024 7:37 PM GUIDE RAIL CLEANER Cancer OSI CT CHEST ABDOMEN PELVIS Routine 08/2023 7:37 PM GUIDE RAIL CLEANER Cancer OSI CHEST Routine 03/23/2024 7:37 PM GUIDE RAIL CLEANER Cancer OSI CT CHEST Routine 03/22/2024 8:21 AM GUIDE RAIL CLEANER Cancer OSI CT ABDOMEN AND PELVIS Routine [...] 6:08 AM CDT Renal mass [facility] Ne[email or web address] collect and send tissue to pathology window with appropriate label. TN LAPAROSCOPY SURG PARTIAL NEPHRECTOMY 01/02/2024 6:08 AM CDT Renal mass Special Needs [email or web address]:Please collect and send tissue to pathology window [...] ABDOMEN AND PELVIS Routine 2023 7:40 AM GUIDE RAIL CLEANER Cancer OSI CT BRAIN Routine 07/17/2023 7:40 AM GUIDE RAIL CLEANER Cancer after 06/05/2023 Results * (ABNORMAL) .CBC (06/01/2024 11:10 AM GUIDE RAIL CLEANER) Only the most recent of8 resultswithin the time period is included. Pathologist [facility] White Blood Cell 10.4 4.1 - 10.5 K/uL 06/01/2024 11:30 AM [facility] Red Blood Cell 4.52 4.30 - 6.04 M/uL 06/01/2024 11:30 AM [facility] Hemoglobin 11.2(L) 13.3 - 17.4 g/dL 06/01/2024 11:30 AM [facility] Hematocrit 35.3(L) 39.5 - 51.8 % 06/01/2024 11:30 AM [facility] Mean Cell Volume 78(L) 82 - 99 fL 06/01/2024 11:30 AM [facility] Mean Cell Hemoglobin 24.8(L) 26.6 - 33.2 pg 06/01/2024 11:30 AM [facility] Mean Cell Hemoglobin Concentration 31.7 31.1 - 35.2 g/dL 06/01/2024 11:30 AM [facility] RDW-SD 41.9 37.5 - 49.7 fL 06/01/2024 11:30 AM [facility] Red Cell Diameter Width 15.0 11.6 - 15.5 % 06/01/2024 11:30 AM [facility] Platelet 214 160 - 397 K/uL 06/01/2024 11:30 AM [facility] Mean Platelet Volume 9.1 9.1 - 12.6 fL 06/01/2024 11:30 AM [facility] INRBC 0.0 0.0 - 0.1 /100 WBC 06/01/2024 11:30 AM [facility] Comment: The INRBC (instrument NRBC) value reflects the enumeration of nucleated red blood cells contained in a 200uL sample of whole blood analyzed by the instrument. This value may differ from the NRBC value reported in a manual differential, which is based on a 100 cell differential. Neutrophil % 73.0(H) 43.2 - 72.7 % 06/01/2024 11:30 AM [facility] Lymphocyte % 15.2(L) 16.8 - 46.2 % 06/01/2024 11:30 AM [facility] Monocyte % 9.2 5.1 - 12.5 % 06/01/2024 11:30 AM [facility] Eosinophil % 1.4 0.4 - 6.3 % 06/01/2024 11:30 AM [facility] Basophil % 0.4 0.2 - 1.4 % 06/01/2024 11:30 AM [facility] IGRE % 0.8 0.1 - 1.5 % 06/01/2024 11:30 AM [facility] Comment:The IGRE% includes M etamyelocytes, Myelocytes and Promyelocytes. Neutrophil Abs 7.58(H) 1.95 - 7.25 K/uL 06/01/2024 11:30 AM [facility] Lymphocyte Abs 1.58 1.01 - 3.24 K/uL 06/01/2024 11:30 AM [facility] Monocyte Abs 0.95(H) 0.24 - 0.85 K/uL 06/01/2024 11:30 AM [facility] Eosinophil Abs 0.15 0.02 - 0.50 K/uL 06/01/2024 11:30 AM [facility] Basophil Abs 0.04 0.02 - 0.09 K/uL 06/01/2024 11:30 AM [facility] IG Abs 0.08 0.01 - 0.12 K/uL 06/01/2024 11:30 AM [facility] Blood Peripheral blood specimen / Unknown Venipuncture / Unknown 06/01/2024 11:10 AM [facility] 06/01/2024 11:29 AM [facility] us Marianela Hutchinson MD LAB BLOOD ORDERABLES Final Re sult [facility] Unless otherwise noted, all lab tests performed by: Division of Pathology and Laboratory Medicine [address] [place] [address] * (ABNORMAL) Comprehensive Metabolic Panel (06/01/2024 11:10 AM [facility]) Only the most recent of7 resultswithin the time period is included. Bilirubin Total <0.3 0.0 - 1.2 mg/dL 06/01/2024 12:15 PM [facility] Comment:Indocyanine Green (I CG) may cause falsely elevated bilirubin results. Total and direct bilirubin must not be measured from samples containing indocyanine green. False elevation of total bilirubin can be seen in patients with IgG concentrations above 28 g/L. eGFR 96 >=60 mL/min/1. 73 sq. m 06/01/2024 12:15 PM [facility] Comment: The eGFRcr is calculated [...] Tot Protein 7.6 6.4 - 8.3 gm/dL 06/01/2024 12:15 PM [facility] Calcium Level Total 9.4 8.2 - 10.2 mg/dL 06/01/2024 12:15 PM [facility] Alkaline Phosphatase 119 40 - 129 U/L 06/01/2024 12:15 PM [facility] Albumin Level 4.0 3.5 - 5.2 gm/dL 06/01/2024 12:15 PM [facility] AST 16 <=40 U/L 06/01/2024 12:15 PM [facility] ALT 12 <=41 U/L 06/01/2024 12:15 PM [facility] Sodium Level 131(L) 136 - 145 mmol/L 06/01/2024 12:15 PM [facility] Potassium Level 5.3(H) 3.4 - 4.5 mmol/L 06/01/2024 12:15 PM [facility] Chloride 95(L) 98 - 107 mmol/L 06/01/2024 12:15 PM [facility] CO2 29 22 - 29 mmol/L 06/01/2024 12:15 PM [facility] Anion Gap 7 4 - 14 mmol/L 06/01/2024 12:15 PM [facility] Creatinine 0.91 0.67 - 1.17 mg/dL 06/01/2024 12:15 PM [facility] BUN 22 6 - 23 mg/dL 06/01/2024 12:15 PM [facility] Glucose Level 268(H) 70 - 99 mg/dL 06/01/2024 12:15 PM [facility] Comment: Effective 12/14/15, the glucose reference intervals have been updated based on [place] [employer] guidelines (Standards of Medical Care in Diabetes 2016. Diabetes Care 2016; 39: S13-S22). Fasting blood glucose: Normal: 70-99 mg/dL Impaired fasting glucose (increased risk for diabetes or pre-diabetes): 100-125 mg/dL Diabetes mellitus: >/=126 mg/dL Random blood glucose: Normal: 70-199 mg/dL Note: Random glucose >100 mg/dL is associated with increased risk for diabetes. Blood Peripheral blood specimen / Unknown Venipuncture / Unknown 06/01/2024 11:10 AM GUIDE RAIL CLEANER 06/01/2024 11:23 AM [facility] us Marianela Hutchinson MD LAB BLOOD ORDERABLES Final Re sult [facility] Unless otherwise noted, all lab tests performed by: Division of Pathology and Laboratory Medicine [address] [place] [address] [place] [address] * Transferrin with TIBC (06/01/2024 11:10 AM [facility]) Transferrin 211 200 - 360 mg/dL 06/01/2024 12:15 PM GUIDE RAIL CLEANER [facility] Total Iron Binding Capacity 295 250 - 450 mcg/dL 06/01/2024 12:15 PM GUIDE RAIL CLEANER [facility] Blood Peripheral blood specimen / Unknown Venipuncture / Unknown 06/01/2024 11:10 AM GUIDE RAIL CLEANER 06/01/2024 11:23 AM GUIDE RAIL CLEANER us Marianela Hutchinson MD LAB BLOOD ORDERABLES Final Re sult Performing Organization Address City/[facility]/ZIP Co de Phone Number [facility] Unless otherwise noted, all lab tests performed by: Division of Pathology and Laboratory Medicine [address] [place] [address] * (ABNORMAL) Iron Level (06/01/2024 11:10 AM GUIDE RAIL CLEANER) Iron Level 38(L) 59 - 158 mcg/dL 06/01/2024 12:15 PM GUIDE RAIL CLEANER [facility] Is patient fasting? No 06/01/2024 12:15 PM GUIDE RAIL CLEANER [facility] Blood Peripheral blood specimen / Unknown Venipuncture / Unknown 06/01/2024 11:10 AM GUIDE RAIL CLEANER 06/01/2024 11:23 AM GUIDE RAIL CLEANER us Marianela Hutchinson MD LAB BLOOD ORDERABLES Final Re sult Performing Organization Address [facility] de Phone Number [facility] Unless otherwise noted, all lab tests performed by: Division of Pathology and Laboratory Medicine [address] [place] [address] Unless otherwise noted, all lab tests performed by: Division of Pathology and Laboratory Medicine [address] [place] [phone] * Ferritin Level (06/01/2024 11:10 AM GUIDE RAIL CLEANER) Ferritin Level 59 30 - 400 ng/mL 06/01/2024 12:15 PM GUIDE RAIL CLEANER [facility] Blood Peripheral blood specimen / Unknown Venipuncture / Unknown 06/01/2024 11:10 AM GUIDE RAIL CLEANER 06/01/2024 11:23 AM GUIDE RAIL CLEANER Narrative [facility] - 06/01/2024 12:15 PM GUIDE RAIL CLEANER Reference range established for age 20 - 60 years us Marianela Hutchinson MD LAB BLOOD ORDERABLES Final Re sult Performing Organization Address City/[facility]/ZIP Co de Phone Number [facility] Unless otherwise noted, all lab tests performed by: Division of Pathology and Laboratory Medicine [address] [place] [address] * (ABNORMAL) POC Glucose Screen - Fingerstick (05/19/2024 1:52 PM GUIDE RAIL CLEANER) Only the most recent of21 resultswithin the time period is included. Pathologist [facility] Glucose Screen 204(H) 70 - 99 mg/dL 05/19/2024 1:54 PM GUIDE RAIL CLEANER [facility] POC Sample Type Capillary 05/19/2024 1:54 PM GUIDE RAIL CLEANER [facility] Blood 05/19/2024 1:52 PM GUIDE RAIL CLEANER 05/19/2024 1:54 PM GUIDE RAIL CLEANER Narrative [facility] - 05/19/2024 1:54 PM GUIDE RAIL CLEANER Capillary blood samples, e.g. obtained by fingerstick, [...] POCT ORDERABLES - DE VICE Final Result Performing Organization Address [facility]/ZIP Co de Phone Number [facility] Unless otherwise noted, all lab tests performed by: Division of Pathology and Laboratory Medicine [address] [place] [phone] * Pathology Biopsy Interpretation (05/19/2024 1:10 PM GUIDE RAIL CLEANER) Only the most recent of2 resultswithin the time period is included. Pathologist [facility] Submitted Clinical History Adenocarcinoma of stomach [C16.9] 05/21/2024 2:25 PM GUIDE RAIL CLEANER [facility] Diagnosis A: Stomach, antrum scarring and stenosis, biopsy: POORLY DIFFERENTIATED SIGNET CELL ADENOCARCINOMA, DIFFUSE TYPE. B: Esophagus, random r/o ruben: Squamous mucosa with Ruben esophagitis. No intestinal metaplasia, dysplasia or carcinoma identified. 05/21/2024 2:25 PM GUIDE RAIL CLEANER [facility] Gross Description A: Stomach, gastric antrum scarring and stenosis bx: Multiple soft castillo tissue fragments, 1.4 x 0.6 x 0.3 cm in aggregate, entirely submitted in A1. ET B: Esophagus, esophagus random r/o ruben: Multiple soft minute light castillo tissue fragments, 0.7 x 0.5 x 0.2 cm in aggregate, entirely submitted in B1. ET 05/21/2024 2:25 PM GUIDE RAIL CLEANER [facility] Biomarker Block(s) Block for biomarker testing: A1 Normal: B1 05/21/2024 2:25 PM GUIDE RAIL CLEANER [facility] Disclaimer "Some tests reported here may have been developed and performance characteristics determined by [facility]. These tests have not been specifically cleared or approved by the U.S. Food and Drug Administration. If applicable, controls were reviewed and showed appropriate reactivity." 05/21/2024 2:25 PM GUIDE RAIL CLEANER [facility] Tissue (Stomach) 05/19/2024 1:10 PM GUIDE RAIL CLEANER 05/19/2024 4:18 PM GUIDE RAIL CLEANER Tissue specimen (specimen) (Esophagus) 05/19/2024 1:20 PM GUIDE RAIL CLEANER 05/19/2024 4:18 PM GUIDE RAIL CLEANER us Brandon Galo MD LAB PATHOLOGY ORDERA BLES Final Result [facility] [address] [place] [phone], * Phosphorus Level (05/18/2024 10:55 AM GUIDE RAIL CLEANER) Only the most recent of3 resultswithin the time period is included. Phosphorus Level 3.2 2.5 - 4.5 mg/dL 05/18/2024 11:52 AM GUIDE RAIL CLEANER [facility] Blood Peripheral blood specimen / Unknown Venipuncture / Unknown 05/18/2024 10:55 AM GUIDE RAIL CLEANER 05/18/2024 10:59 AM GUIDE RAIL CLEANER Gillian PRICE-C LAB BLOOD ORDERABLES Final Result Performing Organization Address City/[facility] de Phone Number [facility] Unless otherwise noted, all lab tests performed by: Division of Pathology and Laboratory Medicine [address] [place] [address] 22521 * Magnesium Level (05/18/2024 10:55 AM GUIDE RAIL CLEANER) Only the most recent of3 resultswithin the time period is included. Magnesium Level 1.8 1.6 - 2.6 mg/dL 05/18/2024 11:52 AM GUIDE RAIL CLEANER [facility] Blood Peripheral blood specimen / Unknown Venipuncture / Unknown 05/18/2024 10:55 AM GUIDE RAIL CLEANER 05/18/2024 10:59 AM GUIDE RAIL CLEANER Gillian PRICE-C LAB BLOOD ORDERABLES Final Result Performing Organization Address [facility] de Phone Number [facility] Unless otherwise noted, all lab tests performed by: Division of Pathology and Laboratory Medicine [address] [place] [address] 39243 * LDH (05/18/2024 10:55 AM GUIDE RAIL CLEANER) Only the most recent of3 resultswithin the time period is included. LDH 182 135 - 225 U/L 05/18/2024 11:52 AM GUIDE RAIL CLEANER [facility] Blood Peripheral blood specimen / Unknown Venipuncture / Unknown 05/18/2024 10:55 AM GUIDE RAIL CLEANER 05/18/2024 10:59 AM GUIDE RAIL CLEANER Narrative [facility] - 05/18/2024 11:52 AM GUIDE RAIL CLEANER Results greater than 1651 U/L may not be reliable due to matrix effect with extended dilution as it exceeds the case mgr's recommended limit. Caution should be exercised when interpreting such values and done in conjunction with clinical context. us Gillian Gomez PA-C LAB BLOOD ORDERABLES Final Result [facility] Unless otherwise noted, all lab tests performed by: Division of Pathology and Laboratory Medicine [address] [place] [address]169 * CEA (05/18/2024 10:55 AM GUIDE RAIL CLEANER) Only the most recent of2 resultswithin the time period is included. [facility] Carcinoembryonic Antigen 2.7 <=3.8 ng/mL 05/18/2024 11:55 AM GUIDE RAIL CLEANER [facility] Blood Peripheral blood specimen / Unknown Venipuncture / Unknown 05/18/2024 10:55 AM GUIDE RAIL CLEANER 05/18/2024 10:59 AM GUIDE RAIL CLEANER Narrative [facility] - 05/18/2024 11:55 AM GUIDE RAIL CLEANER Reference Ranges (age 20-69 years): Non-smoker: <= 3.8 ng/mL Smoker: <= 5.5 ng/mL This test is measured by electrochemiluminescence immunoassay on [employer] Nikki immunoassay analyzers. Results obtained in different methods are not interchangeable. us Gillian Gomez PA-C LAB BLOOD ORDERABLES Final Result Performing Organization Address [facility] Co de Phone Number [facility] Unless otherwise noted, all lab tests performed by: Division of Pathology and Laboratory Medicine [address] [place] [address] 289[address] * Research Protocol [id number] (05/04/2024 11:34 AM GUIDE RAIL CLEANER) [facility] Research Protocol Specimen Specimen Collected, Ready for Pickup. 05/04/2024 1:01 PM GUIDE RAIL CLEANER [facility] Blood Peripheral blood specimen / Unknown Venipuncture / Unknown 05/04/2024 11:34 AM GUIDE RAIL CLEANER 05/04/2024 11:43 AM GUIDE RAIL CLEANER Marianela Hutchinson MD RESEARCH LAB Z CODES Final Re sult [facility] Unless otherwise noted, all lab tests performed by: Division of Pathology and Laboratory Medicine [address] [place] [phone] * Tip Verification Central Vascular Access Device (04/15/2024 3:50 PM GUIDE RAIL CLEANER) Narrative John Fong MD - 04/15/2024 3:50 PM GUIDE RAIL CLEANER John Fong MD 04/15/2024 3:50 PM Central Vascular Access Device Tip Verification Performed by: John Fong MD Authorized by: John Fong MD CVAD Properties Date device placed: 04/15/2024 Device placement location: [facility] Catheter Type: Implanted venous port Catheter lumen: Single lumen Vein location: Internal jugular vein Laterality: Right Tip in good position and cleared for infusion us John Fong MD IV THERAPY ORDERABLES Final Re sult * XR Chest 1 View Portable (04/15/2024 2:45 PM GUIDE RAIL CLEANER) Anatomical Region Laterality Modality Chest Digital Radiogra phy 04/15/2024 2:50 PM GUIDE RAIL CLEANER Impressions 04/15/2024 2:53 PM GUIDE RAIL CLEANER 1. Right infusion port catheter terminates over [...] and potentially actionable. Narrative 04/15/2024 2:53 PM GUIDE RAIL CLEANER FULL RESULT: Examination: XR CHEST 1 VW [...] radiologicfindings that are unexpected and potentially actionable. John Fong MD [facility] ORDERAB LES Final Result * Cytology Non-Generator Mechanic Interpretation (04/15/2024 12:33 PM GUIDE RAIL CLEANER) Gross Description 4 Pap Stain Slides 750 ml. clear yellow fluid Specimen concentrated by cytocentrifugation technique 4 4:07 PM GUIDE RAIL CLEANER [facility] Major Classification [facility]/benign 4 4:07 PM GUIDE RAIL CLEANER [facility] Diagnosis Peritoneal washing: No metastatic carcinoma identified Reactive mesothelial cells and histiocytes 4 4:07 PM GUIDE RAIL CLEANER [facility] Retained/Biomark er Testing SR:4S 4:07 PM [facility] Informational Points Some tests reported here may have been developed and performance characteristics determined by [facility]. These tests have not been specifically cleared or approved by the U.S. Food and Drug Administration. 4:07 PM [facility] Washing (Peritoneal Washing) 04/15/2024 12:33 PM GUIDE RAIL CLEANER 04/15/2024 1:10 PM GUIDE RAIL CLEANER us John Fong MD LAB CYTOLOGY ORDERABLES Final Result [facility] [place] [address], [place] * Pathology Surgical Interpretation (04/15/2024 12:13 PM GUIDE RAIL CLEANER) Only the most recent of2 resultswithin the time period is included. Submitted Clinical History Adenocarcinoma of stomach [C16.9] 04/20/2024 8:13 PM [facility] Diagnosis A. Falciform ligament, resection: Fibroadipose tissue, no tumor present 04/20/2024 8:13 PM [facility] Gross Description A: Falciform ligament, falciorm ligament biopsy....or 16: Consists of a fragment of castillo-yellow, lobulated fat (0.8 x 0.6 x 0.5 cm) entirely submitted in cassette A1. EF 04/20/2024 8:13 PM [facility] Disclaimer "Some tests reported here may have been developed and performance characteristics determined by [facility]. These tests have not been specifically cleared or approved by the U.S. Food and Drug Administration. If applicable, controls were reviewed and showed appropriate reactivity." 04/20/2024 8:13 PM [facility] Tissue (Falciform Ligament) 04/15/2024 12:13 PM GUIDE RAIL CLEANER 04/15/2024 1:18 PM GUIDE RAIL CLEANER John Fong MD LAB PATHOLOGY ORDERABLES Final Result [facility] [address] [place] [address], [place] * FL Central Venous Place Exchange (04/15/2024 11:40 AM GUIDE RAIL CLEANER) Narrative Systemgenerated, Documentation - 04/15/2024 11:40 AM GUIDE RAIL CLEANER This procedure requires no interpretation from the radiologist. John Fong MD IMG FLUOROSCOPY ORDERABLES Fin al Result * CT Abdomen Pelvis with IV Contrast (04/12/2024 11:18 AM GUIDE RAIL CLEANER) Anatomical Region Laterality Modality Abdomen, Pelvis Computed Tomogra phy 04/12/2024 11:5 2 AM GUIDE RAIL CLEANER Impressions 04/12/2024 12:11 PM GUIDE RAIL CLEANER Wall thickening and slight mucosal irregularity of [...] and potentially actionable. Narrative 04/12/2024 12:11 PM GUIDE RAIL CLEANER FULL RESULT: Examination: CT ABDOMEN PELVIS W [...] Result * Fractionated Bilirubin (04/12/2024 9:04 AM [facility]) Bilirubin Direct 04/12/20 9:47 AM [facility] Comment: Direct and indirect bilirubin will not be reported when Total bilirubin result is <0.3 mg/dL Indocyanine Green (ICG) may cause falsely elevated bilirubin results. Total and direct bilirubin must not be measured from samples containing indocyanine green. Bilirubin Indirect 2023 9:47 AM [facility] Comment:Direct and indirect bilirubin will not be reported when Total bilirubin result is <0.3 mg/dL Bilirubin Total <0.3 0.0 - 1.2 mg/dL 04/12/2024 9:47 AM [facility] Comment: Direct and indirect bilirubin [...] Unknown Venipuncture / Unknown 04/12/2024 9:04 AM GUIDE RAIL CLEANER 04/12/2024 9:08 AM GUIDE RAIL CLEANER us Nghia Zhu MD LAB BLOOD ORDERABLES Final Resu lt [facility] Unless otherwise noted, all lab tests performed by: Division of Pathology and Laboratory Medicine [address] [place] [address] 62737 * (ABNORMAL) Lipase (04/12/2024 9:04 AM GUIDE RAIL CLEANER) Lipase Level 311(H) 13 - 60 U/L 04/12/2024 10:09 AM GUIDE RAIL CLEANER [facility] Blood Peripheral blood specimen / Unknown Venipuncture / Unknown 04/12/2024 9:04 AM GUIDE RAIL CLEANER 04/12/2024 9:08 AM GUIDE RAIL CLEANER Narrative [facility] - 04/12/2024 10:09 AM GUIDE RAIL CLEANER Reference range established based on adult population us Nghia Zhu MD LAB BLOOD ORDERABLES Final Resu lt [facility] Unless otherwise noted, all lab tests performed by: Division of Pathology and Laboratory Medicine [address] [place] [address] 66851 * (ABNORMAL) Amylase (04/12/2024 9:04 AM GUIDE RAIL CLEANER) Amylase Level 171(H) 28 - 100 U/L 04/12/2024 9:47 AM GUIDE RAIL CLEANER [facility] Blood Peripheral blood specimen / Unknown Venipuncture / Unknown 04/12/2024 9:04 AM GUIDE RAIL CLEANER 04/12/2024 9:08 AM GUIDE RAIL CLEANER us Nghia Zhu MD LAB BLOOD ORDERABLES Final Resu lt [facility] Unless otherwise noted, all lab tests performed by: Division of Pathology and Laboratory Medicine [address] [place] [address] 71932 * TSH (04/09/2024 11:09 AM GUIDE RAIL CLEANER) Only the most recent of2 resultswithin the time period is included. Thyroid Stimulating Hormone 1.53 0.27 - 4.20 mcunit/mL 04/09/2024 12:23 PM GUIDE RAIL CLEANER [facility] Blood Peripheral blood specimen / Unknown Venipuncture / Unknown 04/09/2024 11:09 AM GUIDE RAIL CLEANER 04/09/2024 11:19 AM GUIDE RAIL CLEANER Ceci Nicholson MD LAB BLOOD ORDERABLES Final Resu lt Performing Organization Address [facility] Co de Phone Number [facility] Unless otherwise noted, all lab tests performed by: Division of Pathology and Laboratory Medicine [address] [place] [address] [phone] * (ABNORMAL) Hemoglobin A1c (04/09/2024 11:09 AM GUIDE RAIL CLEANER) Only the most recent of3 resultswithin the time period is included. Hemoglobin A1c 7.0(H) 4.3 - 5.6 % 04/09/2024 12:14 PM GUIDE RAIL CLEANER [facility] Blood Peripheral blood specimen / Unknown Venipuncture / Unknown 04/09/2024 11:09 AM GUIDE RAIL CLEANER 04/09/2024 11:19 AM GUIDE RAIL CLEANER Narrative [facility] - 04/09/2024 12:14 PM GUIDE RAIL CLEANER HbA1c values >=6.5% are diagnostic of diabetes mellitus. Diagnosis should be confirmed by repeat testing. Therapeutic Action suggested: >8.0% HbA1c; Goal of therapy: <7.0% HbA1c us Ceci Nicholson MD LAB BLOOD ORDERABLES Final Resu lt Performing Organization Address City/[facility]/ZIP Co de Phone Number [facility] Unless otherwise noted, all lab tests performed by: Division of Pathology and Laboratory Medicine [address] [place] [address] * EKG, 12-Lead (Scheduled) (04/09/2024) Only the most recent of2 resultswithin the time period is included. Ceci Nicholson MD ECG ORDERABLES Final Result [facility] * Pathology Outside Interpretation (04/02/2024) Materials Received Accession#, Stained, Block, Unstained Collected Received A. [id number], 20 SS, 0 BLOCKS, 0 USS 04/02/2024 04/22/2024 04/22/2024 5:36 PM [facility] Diagnosis Outside ([id number], 20 SS, 0 BLOCKS, 0 USS, collected [...] FEATURES. See comment. CLEMENTE/ISAURO 04/22/2024 5:36 PM [facility] Comment Part A. There is no evidence of malignancy on H&E and immunohistochemical stain for Cytokeratin AE1/AE3. Of note, the biopsy may not be operations support representative of the entire lesion. Please correlate [...] immunohistochemistry: Negative (Score: 0) 04/22/2024 5:36 PM [facility] Biomarker Block(s) Block for biomarker testing: C1 Normal block: N/A 04/22/2024 5:36 PM [facility] Disclaimer "Some tests reported here may have been developed and performance characteristics determined by [facility]. These tests have not been specifically cleared or approved by the U.S. Food and Drug Administration. If applicable, controls were reviewed and showed appropriate reactivity." 04/22/2024 5:36 PM GUIDE RAIL CLEANER [facility] Tissue 04/02/2024 04/22/2024 6:4 0 AM GUIDE RAIL CLEANER Sybil Edmonds MD LAB PATHOLOGY ORDERABLES Final R esult [facility] [address] [place] [address], [place] * OSI CT Abdomen and Pelvis (04/01/2024 8:21 AM GUIDE RAIL CLEANER) Only the most recent of3 resultswithin the time period is included. Narrative Systemgenerated, Documentation - 04/27/2024 8:22 AM GUIDE RAIL CLEANER Study acquired at another institution. For comparison only. No [facility] originated interpretation requested or available. [facility] Regan Zhu DO IMG OUTSIDE IMAGE ORDERAB LES Final Result * OSI CT CHEST ABDOMEN PELVIS (03/23/2024 7:37 PM GUIDE RAIL CLEANER) Narrative Systemgenerated, Documentation - 04/09/2024 7:37 PM GUIDE RAIL CLEANER Study acquired at another institution. For comparison only. No [facility] originated interpretation requested or available. Margoth MCKINNEY OUTSIDE IMAGE ORDERABLES Fin al Result * OSI Chest (03/23/2024 7:37 PM GUIDE RAIL CLEANER) Only the most recent of4 resultswithin the time period is included. Narrative Systemgenerated, Documentation - 04/09/2024 7:37 PM GUIDE RAIL CLEANER Study acquired at another institution. For comparison only. No [facility] originated interpretation requested or available. Margoth MCKINNEY OUTSIDE IMAGE ORDERABLES Fin al Result * OSI CT Chest (03/22/2024 8:21 AM GUIDE RAIL CLEANER) Narrative Systemgenerated, Documentation - 04/27/2024 8:21 AM GUIDE RAIL CLEANER Study acquired at another institution. For comparison only. No [facility] interpretation requested or available. [facility] Regan Zhu DO IMG OUTSIDE IMAGE ORDERAB LES Final Result * (ABNORMAL) Basic Metabolic Panel- Total Calcium (01/03/2024 2:59 PM CDT) Only the most recent of7 resultswithin the time period is included. eGFR 71 >=60 mL/min/1. 73 sq. m 01/03/2024 3:44 PM CDT [facility] Comment: The eGFRcr is calculated [...] - 10.2 mg/dL 01/03/2024 3:44 PM CDT [facility] Sodium Level 139 136 - 145 mmol/L 01/03/2024 3:44 PM CDT [facility] Potassium Level 3.9 3.4 - 4.5 mmol/L 01/03/2024 3:44 PM CDT [facility] Chloride 103 98 - 107 mmol/L 01/03/2024 3:44 PM CDT [facility] CO2 28 22 - 29 mmol/L 01/03/2024 3:44 PM CDT [facility] Anion Gap 8 4 - 14 mmol/L 01/03/2024 3:44 PM CDT [facility] Creatinine 1.18(H) 0.67 - 1.17 mg/dL 01/03/2024 3:44 PM CDT [facility] BUN 15 6 - 23 mg/dL 01/03/2024 3:44 PM CDT [facility] Glucose Level 137(H) 70 - 99 mg/dL 01/03/2024 3:44 PM CDT [facility] Comment: Effective 12/14/15, the glucose reference intervals have been updated based on [place] [employer] guidelines (Standards of Medical Care [...] Mcmanus APRN LAB BLOOD ORDERABLES Final Result [facility] Unless otherwise noted, all lab tests performed by: Division of Pathology and Laboratory Medicine [address] [place] [phone] * Zinc Transporter 8 Ab (01/03/2024 4:22 AM CDT) Zinc T8 AB <15.0 <15.0 U/mL 01/15/2024 11:18 AM CDT [facility] Comment: ADDITIONAL INFORMATION This test has been modified from the case mgr's instructions. Its performance characteristics were determined by [facility] in a manner consistent with CLIA requirements. This test has not been cleared or approved by the U.S. Food and Drug Administration. Test Performed by: [address] [address] Clinical Research Technician: Mary Jane Topete Ph.D.; CLIA# [id number] Blood Peripheral blood specimen / Unknown Venipuncture / Unknown 01/03/2024 4:22 AM CDT 01/03/2024 4:55 AM CDT Alicia Sohail Mcmanus APRN [facility] BLOOD ORDERABLES Final Result Performing Organization Address [facility] Co de Phone Number [facility] * Islet Antigen 2 (IA-2) Antibody (01/03/2024 4:22 AM CDT) IA-2 Antibody 0.00 <=0.02 nmol/L 01/07/2024 12:20 AM CDT [facility] Comment: ADDITIONAL INFORMATION This test was developed and its performance characteristics determined by [facility] in a manner consistent with CLIA requirements. This test has not been cleared or approved by the U.S. Food and Drug Administration. Test Performed by: [address] [address] Clinical Research Technician: Mary Jane Topete Ph.D.; CLIA# [id number] Blood Peripheral blood specimen / Unknown Venipuncture / Unknown 01/03/2024 4:22 AM CDT 01/03/2024 4:55 AM CDT Alicia Mcmanus APRN LAB BLOOD ORDERABLES Final Result Performing Organization Address [facility] Co de Phone Number [facility] TIFF * GREG Ab Assay (01/03/2024 4:22 AM CDT) Pathologist [id number] 0.00 <=0.02 nmol/L 01/07/2024 12:01 AM CDT [facility] [employer] Comment: ADDITIONAL INFORMATION This test was developed and its performance characteristics determined by [facility] in a manner consistent with CLIA requirements. This test has not been cleared or approved by the U.S. Food and Drug Administration. Test Performed by: [address] [address] Clinical Research Technician: Mary Jane Topete Ph.D.; CLIA# [id number] Blood Peripheral blood specimen / Unknown Venipuncture / Unknown 01/03/2024 4:22 AM CDT 01/03/2024 4:55 AM CDT Alicia Mcmanus APRN LAB BLOOD ORDERABLES Final Result Performing Organization Address [facility] Co de Phone Number [facility] TIFF * Insulin Ab (01/03/2024 4:22 AM CDT) [facility] Insulin Ab-Kerrick 0.00 0.00 - 0.02 nmol/L 01/06/2024 5:14 PM CDT [facility] Comment: ADDITIONAL INFORMATION This test was developed and its performance characteristics determined by [facility] in a manner consistent with CLIA requirements. This test has not been cleared or approved by the U.S. Food and Drug Administration. Test Performed by: [address] [address] Clinical Research Technician: Mary Jane Topete Ph.D.; CLIA# [id number] Blood Peripheral blood specimen / Unknown Venipuncture / Unknown 01/03/2024 4:22 AM CDT 01/03/2024 4:55 AM CDT Alicia Mcmanus APRN LAB BLOOD ORDERABLES Final Result Performing Organization Address [facility]/ZIP Co de Phone Number [facility] TIFF * C Peptide (01/03/2024 4:22 AM CDT) Pathologist [facility] C-Peptide 2.12 1.10 - 4.40 ng/mL 01/03/2024 5:48 AM CDT [facility] Blood Peripheral blood specimen / Unknown Venipuncture / Unknown 01/03/2024 4:22 AM CDT 01/03/2024 4:55 AM CDT us Alicia Mcmanus ADJUNCT INSTRUCTOR LAB BLOOD ORDERABLES Final Result [facility] Unless otherwise noted, all lab tests performed by: Division of Pathology and Laboratory Medicine [address] [place] [phone] * (ABNORMAL) Hemogram (01/02/2024 7:20 PM CDT) Pathologist [facility] White Blood Cell 13.8(H) 4.1 - 10.5 K/uL 01/02/2024 7:33 PM CDT [facility] Red Blood Cell 4.74 4.30 - 6.04 M/uL 01/02/2024 7:33 PM CDT [facility] Hemoglobin 12.2(L) 13.3 - 17.4 g/dL 01/02/2024 7:33 PM CDT [facility] Hematocrit 38.6(L) 39.5 - 51.8 % 01/02/2024 7:33 PM CDT [facility] Mean Cell Volume 81(L) 82 - 99 fL 01/02/2024 7:33 PM CDT [facility] Mean Cell Hemoglobin 25.7(L) 26.6 - 33.2 pg 01/02/2024 7:33 PM CDT [facility] Mean Cell Hemoglobin Concentration 31.6 31.1 - 35.2 g/dL 01/02/2024 7:33 PM CDT [facility] RDW-SD 39.1 37.5 - 49.7 fL 01/02/2024 7:33 PM CDT [facility] Red Cell Diameter Width 13.1 11.6 - 15.5 % 01/02/2024 7:33 PM CDT [facility] Platelet 291 160 - 397 K/uL 01/02/2024 7:33 PM CDT [facility] Mean Platelet Volume 9.7 9.1 - 12.6 fL 01/02/2024 7:33 PM CDT [facility] INRBC 0.0 0.0 - 0.1 /100 WBC 01/02/2024 7:33 PM CDT [facility] Comment: The INRBC (instrument NRBC) [...] PM CDT 01/02/2024 7:24 PM CDT us Derian PRICE LAB BLOOD ORDERABLES Final R esult [facility] Unless otherwise noted, all lab tests performed by: Division of Pathology and Laboratory Medicine [address] [place] [phone] * (ABNORMAL) Beta Hydroxy Quant (01/02/2024 7:20 PM CDT) Only the most recent of2 resultswithin the time period is included. Beta-Hydroxybuty rate 0.85(H) 0.02 - 0.27 mmol/L 01/02/2024 8:01 PM CDT [facility] Is patient fasting? No 01/02/2024 8:01 PM CDT [facility] Comment:A fasting specimen i s recommended and results obtained from non-fasting specimens should be interpreted with caution using reference ranges based on fasting status and in conjunction with clinical context. Blood Peripheral blood specimen / Unknown Venipuncture / Unknown 01/02/2024 7:20 PM CDT 01/02/2024 7:24 PM CDT Narrative [facility] - 01/02/2024 8:01 PM CDT Reference range based on fasting. us Alicia Mcmanus APRN LAB BLOOD ORDERABLES Final Result [facility] Unless otherwise noted, all lab tests performed by: Division of Pathology and Laboratory Medicine [facility] [place] [address] * (ABNORMAL) ABG+ (ABG, Na, K, Cl, Glu, Hgb, Hct, Lactate, Ion Ca) (01/02/2024 10:38 AM CDT) Only the most recent of2 resultswithin the time period is included. Sodium Arterial 140 136 - 146 mmol/L 01/02/2024 10:44 AM CDT [facility] Potassium Arterial 3.7 3.4 - 4.5 mmol/L 01/02/2024 10:44 AM CDT [facility] Chloride Arterial 103 98 - 106 mmol/L 01/02/2024 10:44 AM CDT [facility] Glucose Arterial 270(H) 70 - 105 mg/dL 01/02/2024 10:44 AM CDT [facility] Hgb Art 12.9(L) 13.5 - 17.5 g/dL 01/02/2024 10:44 AM CDT [facility] Hematocrit Arterial 40(L) 42 - 52 % 01/02/2024 10:44 AM CDT [facility] Lactate Arterial 1.0(H) 0.4 - 0.8 mmol/L 01/02/2024 10:44 AM CDT [facility] Calcium Ionized Arterial 1.14(L) 1.15 - 1.29 mmol/L 01/02/2024 10:44 AM CDT [facility] pH Arterial 7.35 7.35 - 7.45 01/02/2024 10:44 AM CDT [facility] P CO2 Arterial 42.9 35.0 - 48.0 mmHg 01/02/2024 10:44 AM CDT [facility] P O2 Arterial 164(H) 83 - 108 mmHg 01/02/2024 10:44 AM CDT [facility] Bicarbonate Arterial 24 21 - 28 mmol/L 01/02/2024 10:44 AM CDT [facility] WB Anion Gap 13 7 - 16 mmol/L 01/02/2024 10:44 AM CDT [facility] Base Excess Arterial -2 -2 - 3 mmol/L 01/02/2024 10:44 AM CDT [facility] Oxygen Saturation Arterial 99 95 - 99 % 01/02/2024 10:44 AM CDT [facility] Oxygen FLOW Rate/ FiO2 01/02/2024 10:44 AM CDT [facility] O2 Therapy 01/02/2024 10:44 AM CDT [facility] Art Kirill Test Not Applicable (Arterial Line Draw) 01/02/2024 10:44 AM CDT [facility] Blood Arterial blood specimen / Unknown Arterial Line / Unknown 01/02/2024 10:38 AM CDT 01/02/2024 10:41 AM CDT Narrative [facility] - 01/02/2024 10:44 AM CDT [...] MD LAB BLOOD ORDERABLES Final Re sult [facility] Unless otherwise noted, all lab tests performed by: Division of Pathology and Laboratory Medicine [address] [place] [address] * Intraoperative Ultrasound - For Image Storage [...] EXP DATE 01/22/2024 12/23/2023 2:19 PM CDT [facility] - TRANSFUSION SERVICES Blood Peripheral blood specimen / Unknown Venipuncture / Unknown 12/23/2023 8:51 AM CDT 12/23/2023 9:00 AM CDT us Margoth Souza MD BLOOD BANK TEST ORDERABLES Final Result [facility] - TRANSFUSION SERVICES [facility] [address] [facility] [address] [place] [address] * Preop Updated Expiration (12/23/2023 8:51 AM CDT) PREOP STATUS 01/02/2024 11:33 PM CDT [facility] - [facility] PREOP EXP DATE 01/02/2024 01/02/2024 11:33 PM CDT [facility] Blood Peripheral blood specimen / Unknown Venipuncture / Unknown 12/23/2023 8:51 AM CDT 12/23/2023 9:00 AM CDT us Margoth Souza MD BLOOD BANK TEST ORDERABLES Final Result [facility] - TRANSFUSION SERVICES [facility] [address] [place] [address] * (ABNORMAL) Urinalysis with Reflex Culture (12/23/2023 8:51 AM CDT) Only the most recent of2 resultswithin the time period is included. Urine Appearance Clear Clear 12/23/19 9:33 AM CDT [facility] Urine Color Straw Colorless, Straw, Yellow, Dark Yellow, Straw-Yellow 12/23/2023 9:33 AM CDT [facility] Urine Specific Chancellor 1.032 1.003 - 1.035 12/23/2023 9:33 AM CDT [facility] Urine pH 6.0 5.0 - 8.0 12/23/2023 9:33 AM CDT [facility] Urine Glucose >=1000(A) Negative mg/dL 12/23/2023 9:33 AM CDT [facility] Urine Ketones Negative Negative mg/dL 12/23/2023 9:33 AM CDT [facility] Urine Blood Negative Negative 12/23/2023 9:33 AM CDT [facility] Urine Protein 30(A) Negative mg/dL 12/23/2023 9:33 AM CDT [facility] Urine Bilirubin Negative Negative 9:33 AM CDT [facility] Urine Urobilinogen Negative Negative 12/23/2023 9:33 AM CDT [facility] Urine Nitrite Negative Negative 12/23/2023 9:33 AM CDT [facility] Urine Leukocyte Esterase Negative Negative 12/23/2023 9:33 AM CDT [facility] Urine Mucous Not Seen Not Seen, Trace /HPF 12/23/2023 9:33 AM CDT [facility] Urine Bacteria Not Seen Not Seen /HPF 12/23/2023 9:33 AM CDT [facility] Urine Squamous Epithelial Cells OCC Not Seen, OCC, Rare /HPF 12/23/2023 9:33 AM CDT [facility] Urine WBC <1 <=2 /HPF 12/23/2023 9:33 AM CDT [facility] Urine RBC 1 <=2 /HPF 12/23/2023 9:33 AM CDT [facility] Urine Voided urine specimen / Unknown Non-blood Collection / Unknown 12/23/2023 8:51 AM CDT 12/23/2023 9:10 AM CDT Narrative [facility] - 12/23/2023 9:33 AM CDT Some reporting parameters within the Urinalysis test have changed due to the implementation of new instrumentation in the Main [place], allowing greater sensitivity of measurement. Urinalysis results reported by the [facility] using existing instrumentation, as well as Urinalysis testing performed manually or by back-up methodology at the main [place], will remain relatively unchanged. New reporting parameters and units will now be reported for all campuses. us Margoth Souza MD URINE ORDERABLES Final Result [facility] Unless otherwise noted, all lab tests performed by: Division of Pathology and Laboratory Medicine [address] [place] [address] * 30-Day Pre-Op Type and Screen (12/23/2023 8:51 AM CDT) Only the most recent of2 resultswithin the time period is included. ABORh O POS 12/23/2023 8:45 AM CDT [facility] - TRAN[facility]ION [facility] ABSC Negative 12/23/2023 8:45 AM CDT [facility] BB Criteria Met Criteria met 12/23/2023 8:45 AM CDT [facility] Historical Record Check Complete 12/23/2023 8:45 AM CDT [facility] Blood Peripheral blood specimen / Unknown Venipuncture / Unknown 12/23/2023 8:51 AM CDT 12/23/2023 9:00 AM CDT Margoth Souza MD BLOOD BANK TEST ORDERABLES Final Result [facility] - TRANSFUSION SERVICES [facility] [address] [place] [address] * TMP Interpretation Exception PreOp Expiration (12/23/2023 8:51 AM CDT) Only the most recent of2 resultswithin the time period is included. TMP Exception 12/24/2023 10:47 AM CDT [facility] TMP Signature . 12/24/2023 10:47 AM CDT [facility] Blood Peripheral blood specimen / Unknown Venipuncture / Unknown 12/23/2023 8:51 AM CDT 12/23/2023 9:00 AM CDT Margoth Souza MD BLOOD BANK TEST ORDERABLES Final Result [facility] - TRANSFUSION SERVICES [facility] [address] [facility] [address] [place] [address] * ACTH (12/09/2023 9:45 AM CDT) Only the most recent of2 resultswithin the time period is included. ACTH 22 7 - 63 pg/mL 12/09/2023 12:19 PM CDT [facility] Blood Peripheral blood specimen / Unknown Venipuncture / Unknown 12/09/2023 9:45 AM CDT 12/09/2023 9:52 AM CDT Narrative [facility] - 12/09/2023 12:19 PM CDT Reference range established based on adult population (7 - 10am draws). No established reference values for p.m. draws. Results greater than 1826 pg/mL may not be reliable due to matrix effect with extended dilution as it exceeds the case mgr's recommended limit. ACTH reference intervals are established for the morning hours from 7-10 am. Due to the circadian rhythm of ACTH levels in plasma, the sample collection time must be noted. Caution should be exercised when interpreting such values and done in conjunction with clinical context. Veronica Del Castillo APRN LAB BLOOD ORDERABLES Final Result [facility] Unless otherwise noted, all lab tests performed by: Division of Pathology and Laboratory Medicine [facility] [place] [address] * DHEA Sulfate (12/09/2023 9:45 AM CDT) Pathologist [facility] DHEAS-Kerrick 81 20 - 299 mcg/dL 12/10/2023 12:10 PM CDT [facility] Comment: Test Performed by: [facility] [address] [place] [address] Clinical Research Technician: Mary Jane Topete Ph.D.; CLIA# [id number] Blood Peripheral blood specimen / Unknown Venipuncture / Unknown 12/09/2023 9:45 AM CDT 12/09/2023 9:56 AM CDT Veronica Del Castillo APRN LAB BLOOD ORDERABLES Final Result [facility] * Cortisol, Total (12/09/2023 9:45 AM CDT) Only the most recent of4 resultswithin the time period is included. Pathologist [facility] Cortisol 11.39 4.82 - 19.50 mcg/dL 12/09/2023 11:00 AM CDT [facility] Blood Peripheral blood specimen / Unknown Venipuncture / Unknown 12/09/2023 9:45 AM CDT 12/09/2023 9:55 AM CDT Narrative [facility] - 12/09/2023 11:00 AM [...] Castillo APRN LAB BLOOD ORDERABLES Final Result [facility] Unless otherwise noted, all lab tests performed by: Division of Pathology and Laboratory Medicine [address] [place] [address] * IR CT GUIDED BIOPSY RENAL (10/03/2023 10:27 AM CDT) Anatomical Region Laterality Modality Abdomen/Pelvis, Organ (liver/spleen/kidney) Computed Tomography Narrative 10/04/2023 9:03 AM CDT Table formatting from the original result was not included. Date of Procedure: 10/03/23 Attending Physician: Kumar Comer MD Tumbler Dyeing Machine Operator: None Pre Procedure Diagnosis: Renal mass [...] second(s) 10/03/2023 9:57 AM CDT [facility] International Normalization Ratio 0.98 0.87 - 1.12 10/03/2023 9:57 AM CDT [facility] Blood Peripheral blood specimen / Unknown Venipuncture / Unknown 10/03/2023 9:27 AM CDT 10/03/2023 9:28 AM CDT Abilio Ng PA-C LAB BLOOD ORDERABLES Final Result [facility] [address] [facility] [place] [address] * Type and Screen (10/03/2023 9:27 AM CDT) ABORh O POS 10/03/2023 9:17 AM CDT [facility] TRAN[facility]ION [facility] ABSC Negative 10/03/2023 9:17 AM CDT [facility] Clot Expiration 10/06/2023 23:59 10/03/2023 9:17 AM CDT [facility] Historical Record Check Complete 10/03/2023 9:17 AM CDT [facility] Blood Peripheral blood specimen / Unknown Venipuncture / Unknown 10/03/2023 9:27 AM CDT 10/03/2023 9:52 AM CDT Abilio Ng PA-C BLOOD BANK TEST ORDERABLES Final Result [facility] - TRANSFUSION SERVICES [facility] [address] [facility] [address] [place] [address] * X-ray Chest 2 Views (09/19/2023 9:24 [...] * Metanephrines Fractionated (09/16/2023 4:24 PM CDT) [facility] Normetane Free-Maxwell 0.43 <0.90 nmol/L 09/19/2023 2:59 PM CDT [facility] Metanephr Free-Maxwell <0.20 <0.50 nmol/L 09/19/2023 2:59 PM CDT [facility] Comment: ADDITIONAL INFORMATION This test was developed and its performance characteristics determined by [facility] in a manner consistent with CLIA requirements. This test has not been cleared or approved by the U.S. Food and Drug Administration. Test Performed by: [facility] [place] [address] Clinical Research Technician: Scot Skelton M.D. Ph.D.; CLIA# [id number] Blood Peripheral blood specimen / Unknown Venipuncture / Unknown 09/16/2023 4:24 PM CDT 09/16/2023 4:41 PM CDT Shazia Arriaza MD LAB BLOOD ORDERABLES Final Result [facility] * Hepatitis C Virus Antibody (09/16/2023 4:24 PM CDT) [facility] HCVAb. Non Reactive Non Reactive 09/17/2023 9:11 AM CDT [facility] Blood Peripheral blood specimen / Unknown Venipuncture / Unknown 09/16/2023 4:24 PM CDT 09/16/2023 4:41 PM CDT Narrative [facility] - 09/17/2023 9:11 AM CDT Antibody detection in the immunocompromised and immunosuppressed population may be delayed or absent entirely. Therefore serial testing, correlation with other clinical findings, and supplemental testing (if available) should be taken into consideration when interpreting the results. us Shazia Arriaza MD LAB BLOOD ORDERABLES Final Result Performing Organization Address City/[facility]/ZIP Co de Phone Number [facility] Unless otherwise noted, all lab tests performed by: Division of Pathology and Laboratory Medicine [address] [place] [address] * Aldosterone Level (09/16/2023 4:24 PM CDT) [facility] Aldosterone-Kerrick 8.1 <=21 ng/dL 09/20/2023 1:02 AM CDT [facility] Comment: ADDITIONAL INFORMATION Reference range for patients 11 years and older is based on upright A.M. collection from subjects without sodium restrictions. This test was developed and its performance characteristics determined by [facility] in a manner consistent with CLIA requirements. This test has not been cleared or approved by the U.S. Food and Drug Administration. Test Performed by: [facility] [address] [address] Clinical Research Technician: Scot Skelton M.D. Ph.D.; CLIA# [id number] Blood Peripheral blood specimen / Unknown Venipuncture / Unknown 09/16/2023 4:24 PM CDT 09/16/2023 4:41 PM CDT us Shazia Arriaza MD LAB BLOOD ORDERABLES Final Result Performing Organization Address [facility]/ZIP Co de Phone Number [facility] * Renin Activity (09/16/2023 4:24 PM CDT) [facility] Renin Activity-Kerrick 4.3 ng/mL/h 09/19 3:42 PM CDT [facility] Comment: REFERENCE VALUE (Peripheral vein specimen) Na-deplete, upright: Mean: 5.9 Range: 2.9-10.8 Na-replete, upright: Mean: 1.0 Range: < or =0.6-3.0 ADDITIONAL INFORMATION Testing performed by Liquid Chromatography-Tandem Mass Spectrometry (LC-MS/MS). This test was developed and its performance characteristics determined by [facility] in a manner consistent with CLIA requirements. This test has not been cleared or approved by the U.S. Food and Drug Administration. Test Performed by: [place] [address] Clinical Research Technician: Scot Skelton M.D. Ph.D.; CLIA# [id number] Blood Peripheral blood specimen / Unknown Venipuncture / Unknown 09/16/2023 4:24 PM CDT 09/16/2023 4:41 PM CDT us Shazia Arriaza MD LAB BLOOD ORDERABLES Final Result Performing Organization Address City/[facility]/ZIP Co de Phone Number [facility] * Urine Culture (09/16/2023 4:24 PM CDT) Urine Culture Normal site mirna present. Generally of low significance. Correlate with clinical data and culture history. 09/18/2023 8:31 AM CDT [facility] Urine Voided urine specimen / Unknown Non-blood Collection / Unknown 09/16/2023 4:24 PM CDT 09/16/2023 4:41 PM CDT us Shazia Arriaza MD MICROBIOLOGY - GENERAL ORD ERABLES Final Result [facility] Unless otherwise noted, all lab tests performed by: Division of Pathology and Laboratory Medicine [address] [address] * T4 (09/16/2023 4:24 PM CDT) Thyroxine 7.0 4.5 - 11.7 mcg/dL 09/16/2023 5:55 PM CDT [facility] Blood Peripheral blood specimen / Unknown Venipuncture / Unknown 09/16/2023 4:24 PM CDT 09/16/2023 4:41 PM CDT Shazia Arriaza MD LAB BLOOD ORDERABLES Final Result [facility] Unless otherwise noted, all lab tests performed by: Division of Pathology and Laboratory Medicine [address] [place] [address] * Confirm ABORh (09/16/2023 4:23 PM CDT) [facility] ABORh Confirm O POS 09/16/2023 4:15 PM CDT [facility] - [facility]ION [facility] Blood Peripheral blood specimen / Unknown Venipuncture / Unknown 09/16/2023 4:23 PM CDT 09/16/2023 4:41 PM CDT Shazia Arriaza MD BLOOD BANK TEST ORDERABLES Final Result [facility] - TRANSFUSION SERVICES [facility] [address] [place] [address] * OSI CT Brain (07/17/2023 7: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 For comparison only. No [facility] interpretation requested or available. 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 PCP - General Gastrointestinal Medical Oncology 05/04/24 Mary Jane Cassidy MD [address] [place] [phone] [email or web address] Consulting Physician Endocrinology 12/09/23 Barry He MD [address] [place] [phone] [email or web address] Consulting Physician Internal Medicine 12/23/23 Patience Hunt MD [address] [place] [phone] [email or web address] Consulting Physician Endocrinology 12/31/23 Marianela Hutchinson MD [address] [place] [address] [email or web address] Consulting Physician Gastrointestinal Medical Oncology 04/13/24 Margoth Souza MD [address] [place] [phone] [email or web address] Consulting Physician Urology 04/15/24 Ceci Nicholson MD [address] [place] [phone] [email or web address] Consulting Physician Internal Medicine 04/09/24
[2024-06-04] MEDS ORDERED: PROMETHAZINE INJ 25 MG/ML AMP ONE ×2 (15:28→21:40)
[2024-06-04] MEDS ORDERED: NA CHLORIDE 0.9% 1,000 ML ONE (15:28)
[2024-06-04 16:08] LABS: Absolute Lymphocytes (CBC) 0.9 K/uL (0.7-4.9); Absolute Monocytes 0.3 K/uL (0.1-1.3); Absolute Neutrophil 7.5 K/uL (1.8-8.0); Basophils % 0.5 % (0-1.3); Eosinophils % 0.5 % (0-4.4); Hematocrit 40.5 % (39.6-49.0); Hemoglobin 13.7 g/dL (13.6-17.9); Lymphocytes % 9.9 % (15.3-44.8); MCH 25.5 pg (27.0-35.0); MCHC 33.8 g/dL (32.0-36.0); MCV 75.5 fL (80-100); MPV 7.6 fL (7.6-11.3); Neutrophils % 86.1 % (41.7-73.7); Platelets 268 thou/uL (152-406); RBC Red Blood Cell Count 5.36 M/uL (4.33-5.43); Red Cell Distribution Width 16.4 % (12.1-15.2)
[2024-06-04 16:49] LABS: Albumin 3.1 g/dL (3.4-5.0); Albumin/Globulin Ratio 0.6 (1.1-1.8); Anion Gap 12.6 mEq/L (5.0-15.0); Bilirubin Total 0.3 mg/dL (0.2-1.0); Globulin 5.1 g/dL (2.3-3.5); Potassium 4.6 mEq/L (3.5-5.1); Protein, Total 8.2 g/dL (6.4-8.2)
[2024-06-04 18:32] LABS: Specific Gravity 1.016 (1.005-1.030); Sqamous Epithelial None Seen /HPF (None Seen); Urine Bacteria <20 /HPF (<20); Urine Bilirubin NEGATIVE (Negative); Urine Blood Negative (Negative); Urine Clarity Clear (Clear); Urine Color Light-Yellow (Yellow); Urine Culture Reflex Order NOT NEEDED; Urine Glucose 3+ (Negative); Urine Ketones NEGATIVE (Negative); Urine Microscopic Reflex YN ORDER UMIC; Urine Nitrite 2+ (Negative); Urine Protein 1+ (Negative); Urine RBC <5 /HPF (None Seen); Urine Urobilinogen Normal (Normal); Urine WBC <5 /HPF (<5); Urine pH 6.5 (5.0-7.0)
--- NOTE | 2024-06-04 18:57 | RAD REPORT ---
EXAMINATION: CT ABDOMEN AND PELVIS WITHOUT CONTRAST CLINICAL INDICATION: Male, 59 years old.Elevated lipase; Known gastric cancer;Abd pain TECHNIQUE: CT abdomen and pelvis was performed, without IV contrast, as per department protocol. Axia l, sagittal and coronal reconstructions were obtained. One or more of the following dose reduction techniques were used: Automated exposure control, adjustment of the mA and/or kV according to the pat ient size, and/or iterative reconstruction. Unless otherwise specified, incidental findings do not require dedicated imaging follow-up. [id number]. IV CONTRAST: Not administered. COMPARISON: 02/27/2024 FINDINGS: The lack of intravenous contrast limits the sensitivity of this exam for evaluation of solid visceral organs, vascular structures, and retroperitoneum. LOWER CHEST: Calcified left lower lobe nodule.No significant pericardial effusion. Multivessel nixon ry artery calcifications.Moderate circumferential thickening of the distal esophagus which could reflect esophagitis. Endoscopy could better evaluate. UPPER GI: Mild diffuse gastric wall thickening. This is nonspecific. LIVER: No significant focal abnormality. GALLBLADDER/BILE DUCTS: Cholelithiasis without CT evidence of acute cholecystitis.? PANCREAS: No mass, ductal dilation, or derrick-pancreatic fluid. SPLEEN: Unremarkable. ADRENALS: Adrenal thickening without discrete mass. KIDNEYS AND URETERS: No hydronephrosis.Partial left nephrectomy. Nonspecific bilateral perinephric st randing. No renal or ureteral calculi. ABDOMINAL AORTA AND OTHER VESSELS: Mild atherosclerotic changes. PERITONEUM: Trace pelvic free fluid which is abnormal but nonspecific. LYMPH NODES: No pathologic lymphadenopathy. ABDOMINAL WALL: Unremarkable SMALL BOWEL/COLON: Small bowel has normal course and caliber. No colonic wall thickening or pericolon ic inflammatory changes. URINARY BLADDER: Underdistended but grossly unremarkable. REPRODUCTIVE ORGANS: No pathologic process. MUSCULOSKELETAL: Remote L1 compression fracture. Mild superior end plate deformity at L3 is unchanged . ADDITIONAL FINDINGS: None. IMPRESSION: 1. No acute findings identified within the abdomen or pelvis. 2. Hydronephrosis has resolved though there is no perinephric stranding. 3. Similar moderate thickening at the distal esophagus and diffuse gastric wall thickening.
[2024-06-04] MEDS ORDERED: ONDANSETRON 4 MG (ODT) TAB ONE (19:05)
--- NOTE | 2024-06-04 19:14 | EDPHYS ---
Physician Documentation [facility] Name: Zeke Mackay Sr Age: 59 yrs Sex: Male : 1965 Arrival Date: 06/04/2024 Time: 14:14 Bed 13 Private MD: Rashi Gonzalez HPI: 06/04 15:05 This 59 yrs old Male presents to ER via Ambulatory with complaints of loss of appetite, sp3 Nausea. 15:13 This 59 yrs old Male presents to ER via Ambulatory with complaints of loss of appetite, sp3 Nausea. 15:13 59-year-old male with history of gastric cancer currently being seen at [facility] on sp3 chemotherapy presents with nausea and dehydration symptoms which she has had multiple times in the past. Other past medical history includes diabetes and hypertension. Patient states he has had decreased urinary output as well as epigastric pain and nausea without vomiting yet. He denies lower abdominal pain, diarrhea, fever, back pain, shortness of breath, chest pain or any other signs or symptoms on ROS at this time.. 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 - Infectious Disease History:: Denies. - Social history:: Smoking status: Patient denies any tobacco usage or history of. ROS: 15:14 Constitutional: Negative for fever, chills, and weight loss, Eyes: Negative for injury, sp3 pain, redness, and discharge, Neck: Negative for injury, pain, and swelling, Cardiovascular: Negative for chest pain, palpitations, and edema, Respiratory: Negative for shortness of breath, cough, wheezing, and pleuritic chest pain, Back: Negative for injury and pain, MS/Extremity: Negative for injury and deformity, Skin: Negative for injury, rash, and discoloration, Neuro: Negative for headache, weakness, numbness, tingling, and seizure, Psych: Negative for depression, anxiety, suicide ideation, homicidal ideation, and hallucinations, Allergy/Immunology: Negative for hives, rash, and allergies, Endocrine: Negative for neck swelling, polydipsia, polyuria, polyphagia, and marked weight changes, Hematologic/Lymphatic: Negative for swollen nodes, abnormal bleeding, and unusual bruising, 15:14 All other systems are negative, Exam: 15:15 Constitutional: This is a well developed, well nourished patient who is awake, alert, sp3 and in no acute distress. Head/Face: Normocephalic, atraumatic. Eyes: Pupils equal round and reactive to light, extra-ocular motions intact. Lids and lashes normal. Conjunctiva and sclera are non-icteric and not injected. Cornea within normal limits. Periorbital areas with no swelling, redness, or edema. Neck: Trachea midline, no thyromegaly or masses palpated, and no cervical lymphadenopathy. Supple, full range of motion without nuchal rigidity, or vertebral point tenderness. No Meningismus. Chest/axilla: Normal chest wall appearance and motion. Nontender with no deformity. No lesions are appreciated. Cardiovascular: Regular rate and rhythm with a normal S1 and S2. No gallops, murmurs, or rubs. Normal PMI, no JVD. No pulse deficits. Respiratory: Lungs have equal breath sounds bilaterally, clear to auscultation and percussion. No rales, rhonchi or wheezes noted. No increased work of breathing, no retractions or nasal flaring. Back: No spinal tenderness. No costovertebral tenderness. Full range of motion. Skin: Warm, dry with normal turgor. Normal color with no rashes, no lesions, and no evidence of cellulitis. MS/ Extremity: Pulses equal, no cyanosis. Neurovascular intact. Full, normal range of motion. Neuro: Awake and alert, GCS 15, oriented to person, place, time, and situation. Cranial nerves II-XII grossly intact. Motor strength 5/5 in all extremities. Sensory grossly intact. Cerebellar exam normal. Normal gait. Psych: Awake, alert, with orientation to person, place and time. Behavior, mood, and affect are within normal limits. 15:15 ENT: Dry mucous membranes and lips. 15:15 Abdomen/GI: Pain on epigastric palpation which induces nausea., Vital Signs: 14:41 BP 158 / 86; Pulse 81; Resp 16; Temp 97.2; Pulse Ox 99% ; Weight 81 kg; Height 6 ft. 2 ll1 in. ; Pain 0/10; 15:10 BP 154 / 83; Pulse 68; Resp 20; Pulse Ox 99% on R/A; kj2 17:10 BP 170 / 71; Pulse 70; Resp 18; Pulse Ox 97% on R/A; kj2 18:10 BP 179 / 67; Pulse 68; Resp 18; Pulse Ox 100% on R/A; kj2 19:05 BP 175 / 70; Pulse 74; Resp 18; Pulse Ox 97% ; rg5 20:00 BP 176 / 77; Pulse 73; Resp 18; Pulse Ox 97% on R/A; rg5 21:00 BP 178 / 73; Pulse 73; Resp 17; Pulse Ox 96% on R/A; rg5 22:00 BP 160 / 70; Pulse 70; Resp 18; Pulse Ox 99% on R/A; rg5 14:41 Body Mass Index 22.93 (81.00 kg, 187.96 cm) ll1 14:41 Pain Scale: Adult ll1 MDM: 14:42 Medical Screening Exam initiated sp3 15:16 Data reviewed: vital signs, nurses notes, old medical records, lab test result(s), sp3 radiologic studies. ED course: 59-year-old male with nausea and epigastric pain in the setting of gastric cancer on chemotherapy. Patient clinically is very dehydrated. Differential diagnosis includes dehydration, cancer pain, other GI pathology, among others. I believe patient symptoms are mainly due to chemotherapy side effect and/or cancer related symptoms which she has had multiple times in the past and is in line/consistent with. Will obtain general labs and administer normal saline and Phenergan which is what is helped him in the past. Disposition pending workup and patient course with probable discharge home if patient is improved and no significant findings on workup.. 17:18 ED course: Lipase level at 650 with last level at 404 normal before that. Will obtain sp3 CT abdomen pelvis to assess and disposition from there. Remainder of labs with no significant findings. Patient still nauseated and is requesting more Phenergan. He declined pain medication. Disposition potential transfer to [facility] versus discharge home.. 06/04 15:02 Order name: CBC with Diff; Complete Time: 16:37 sp3 06/04 15:02 Order name: CMP; Complete Time: 16:52 sp3 06/04 15:02 Order name: Lipase; Complete Time: 16:52 sp3 06/04 15:02 Order name: Urinalysis w/ reflexes; Complete Time: 18:48 sp3 06/04 15:02 Order name: Lactate w/ 2H reflex if indic.; Complete Time: 16:12 sp3 06/04 19:31 Order name: Glucose, Ancillary Testing; Complete Time: 19:32 EDMS 06/04 18:26 Order name: Abdomen ; Complete Time: 19:09 EDMS 06/04 15:02 Order name: IV Saline Lock; Complete Time: 16:39 sp3 06/04 15:02 Order name: Labs collected and sent; Complete Time: 16:39 sp3 Administered Medications: 16:07 Drug: NS 0.9% IV 1000 ml IV at 1 bolus Per protocol; to be given as a bolus over 60 kj2 minutes Route: IV; Rate: 1 bolus; Site: left antecubital; 19:01 Follow up: Response: No adverse reaction; IV Status: Completed infusion; IV Intake: kj2 1000ml 16:07 Drug: Promethazine IVP 12.5 mg IVP once Route: IVP; Site: left antecubital; kj2 16:36 Follow up: Response: No adverse reaction kj2 19:00 Follow up: Response: No adverse reaction kj2 19:05 Drug: Ondansetron Oral Disintegrating Tablet Oral Disintegrating Tablet 8 mg PO once rg5 Route: PO; 20:48 Follow up: Response: No adverse reaction rg5 20:50 Drug: Ondansetron IVP 2 mg IVP once; over 2 minutes Route: IVP; Site: right hand; rg5 21:48 Follow up: Response: No adverse reaction rg5 20:50 Drug: Pantoprazole IVP 40 mg IVP once Route: IVP; Site: right hand; rg5 21:48 Follow up: Response: No adverse reaction rg5 20:58 Drug: Ciprofloxacin PO 500 mg PO once Route: PO; rg5 21:49 Follow up: Response: No adverse reaction rg5 20:58 Drug: Pantoprazole PO 40 mg PO once Route: PO; rg5 21:49 Follow up: Response: No adverse reaction rg5 21:45 Drug: Promethazine IM 25 mg IM once Route: IM; Site: right deltoid; rg5 22:06 Follow up: Response: No adverse reaction rg5 Disposition Summary: 06/04/24 19:13 Discharge Ordered Notes: Location: Home shandra Problem: new shandra Symptoms: have improved shandra Condition: Fair shandra Diagnosis - Nausea shandra - Esophagitis, unspecified shandra - Malignant neoplasm of body of stomach shandra - UTI/ Urinary tract infection, site not specified shandra Followup: shandra - With: Private Physician - When: 2 - 3 days - Reason: Recheck today's complaints, Continuance of care, Re-evaluation by your physician Followup: shandra - With: Tami Cool MD - When: 2 - 3 days - Reason: Recheck today's complaints, Re-evaluation by your physician Discharge Instructions: - Discharge Summary Sheet shandra - Esophagitis shandra - Gastritis, Adult shandra - Nausea, Adult shandra - Urinary Tract Infection, Adult shandra - Urinary Tract Infection, Adult, [id number] shandra Forms: - Medication Reconciliation Form shandra - Antibiotic Education shandra - Prescription Opioid Use shandra - Patient Portal Instructions shandra - Leadership Thank You Letter [facility] Prescriptions: - ondansetron 8 mg Oral Tablet,disintegrating - take 1 tablet ORAL route every 6 to 8 hours for 5 days as needed for nausea and shandra vomiting; 20 tablet; Refills: 0, Product Selection Permitted - promethazine 25 mg Rectal suppository - insert 1 suppository RECTAL route every 6 hours PRN NAUSEA; 20 suppository; shandra Refills: 0, Product Selection Permitted - Carafate 100 mg/mL Oral suspension - take 10 milliliter ORAL route 4 times per day 30 MINUTES BEFORE MEALS AND shandra BEFORE BEDTIME; 300 milliliter; Refills: 0, Product Selection Permitted - Cipro 250 mg Oral Tablet - take 2 tablets ORAL route every 12 hours; 20 tablet; Refills: 0, Product shandra Selection Permitted - Protonix 40 mg Oral Tablet - take 1 tablet ORAL route once daily; 30 tablet; Refills: 0, Product Selection sahndra Permitted Signatures: Dispatcher [employer] EDMS [facility] MD MD cha Lewis, Lynsay, RN RN ll1 Veena Zhu MD MD sp3 Jag Horvath MD MD sp4 Alec Fuentes RN RN rg5 Yudith Polanco RN RN kj2 Corrections: (The following items were deleted from the chart) 18:26 17:15 Abdomen Pelvis W [id number]+CT.RAD.BRZ ordered. EDMS EDMS
--- NOTE | 2024-06-04 19:14 | ER ---
Nurse's Notes [facility] Name: Zeke Mackay Sr Age: 59 yrs Sex: Male : 1965 Arrival Date: 06/04/2024 Time: 14:14 Bed 13 Private MD: Diagnosis: Nausea;Esophagitis, unspecified;Malignant neoplasm of body of stomach;UTI/ Urinary tract infection, site not specified Presentation: 06/04 14:41 Chief complaint: Patient states: Nausea and loss of appetite since Saturday. Very weak ll1 and dehydrated. Coronavirus screen: Client denies travel out of the [place] in the last 14 days. At this time, the client does not indicate any symptoms associated with coronavirus-19. Ebola Screen: Patient denies travel to an Ebola-affected area in the 21 days before illness onset. Initial Sepsis Screen: Does the patient meet any 2 criteria? No. Patient's initial sepsis screen is negative. Does the patient have a suspected source of infection? No. Patient's initial sepsis screen is negative. Risk Assessment: Do you want to hurt yourself or someone else? Patient reports no desire to harm self or others. Onset of symptoms was June 01, 2024. 14:41 Method Of Arrival: Ambulatory ll1 14:41 Acuity: RICKEY 3 ll1 Triage Assessment: 15:30 General: Behavior is cooperative. kj2 19:10 General: Appears. GI: Reports. 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 - Infectious Disease History:: Denies. - Social history:: Smoking status: Patient denies any tobacco usage or history of. Screenin:[facility] ED Fall Risk Assessment (Adult) History of falling in the last 3 months, kj2 including since admission No falls in past 3 months (0 pts) Confusion or Disorientation No (0 pts) Intoxicated or Sedated No (0 pts) Impaired Gait No (0 pts) Mobility Assist Device Used No (0 pt) Altered Elimination No (0 pt) Score/Fall Risk Level 0 - 2 = Low Risk Maintained a safe environment, Hourly rounding (assess needs \T\ fall precautionary measures) done. Abuse screen: Denies threats or abuse. Denies injuries from another. Nutritional screening: No deficits noted. Nutritional screening: Has had N/V for 3 or more days. Tuberculosis screening: No symptoms or risk factors identified. Assessment: 15:10 General: Appears in no apparent distress. Pain: Complains of pain in abdomen Pain kj2 currently is 4 out of 10 on a pain scale. Neuro: Level of Consciousness is awake, alert, obeys commands, Oriented to person, place, time, situation. Cardiovascular: Patient's skin is warm and dry. Respiratory: Airway is patent Respiratory effort is unlabored. GI: Pt is actively vomiting. : No signs and/or symptoms were reported regarding the genitourinary system. 16:10 Reassessment: Patient appears in no apparent distress at this time. Patient and/or kj2 family updated on plan of care and expected duration. Pain level reassessed. Patient is alert, oriented x 3, equal unlabored respirations, skin warm/dry/pink. 17:10 Reassessment: Patient appears in no apparent distress at this time. Patient and/or kj2 family updated on plan of care and expected duration. Pain level reassessed. Patient is alert, oriented x 3, equal unlabored respirations, skin warm/dry/pink. 18:10 Reassessment: Patient appears in no apparent distress at this time. Patient and/or kj2 family updated on plan of care and expected duration. Pain level reassessed. Patient is alert, oriented x 3, equal unlabored respirations, skin warm/dry/pink. 19:00 Reassessment: Patient and/or family updated on plan of care and expected duration. Pain rg5 level reassessed. still nauseated. 20:00 Reassessment: Patient and/or family updated on plan of care and expected duration. Pain rg5 level reassessed. pt still nauseated. 21:00 Reassessment: Patient and/or family updated on plan of care and expected duration. Pain rg5 level reassessed. still with nausea. 22:01 Reassessment: Patient and/or family updated on plan of care and expected duration. Pain rg5 level reassessed. Patient states symptoms have improved. still with little nausea, pt ask 30mins more. Vital Signs: 14:41 BP 158 / 86; Pulse 81; Resp 16; Temp 97.2; Pulse Ox 99% ; Weight 81 kg; Height 6 ft. 2 ll1 in. ; Pain 0/10; 15:10 BP 154 / 83; Pulse 68; Resp 20; Pulse Ox 99% on R/A; kj2 17:10 BP 170 / 71; Pulse 70; Resp 18; Pulse Ox 97% on R/A; kj2 18:10 BP 179 / 67; Pulse 68; Resp 18; Pulse Ox 100% on R/A; kj2 19:05 BP 175 / 70; Pulse 74; Resp 18; Pulse Ox 97% ; rg5 20:00 BP 176 / 77; Pulse 73; Resp 18; Pulse Ox 97% on R/A; rg5 21:00 BP 178 / 73; Pulse 73; Resp 17; Pulse Ox 96% on R/A; rg5 22:00 BP 160 / 70; Pulse 70; Resp 18; Pulse Ox 99% on R/A; rg5 14:41 Body Mass Index 22.93 (81.00 kg, 187.96 cm) ll1 14:41 Pain Scale: Adult ll1 ED Course: 14:18 Patient arrived in ED. al6 14:26 Veena Zhu MD is Attending Physician. sp3 14:42 Triage completed. ll1 14:43 Arm band placed on Patient placed in an exam room, on a stretcher. ll1 15:15 Patient has correct armband on for positive identification. Bed in low position. Call kj2 light in reach. Provided Education on: call light. 15:21 Yudith Polanco, ARTURO is Primary Nurse. kj2 15:55 Inserted saline lock: 20 gauge in left antecubital area, using aseptic technique. Blood kj2 collected. Flushed with 10 mL NS. 18:03 Attending Physician role handed off by Veena Zhu MD shandra 18:03 [facility] MD is Attending Physician. shandra 18:41 Abdomen In Process Unspecified. EDMS 19:10 Tami Cool MD is Referral Physician. shandra 20:40 Inserted saline lock: 22 gauge in right hand, using aseptic technique. rg5 22:20 IV discontinued, bleeding controlled, No redness/swelling at site. Pressure dressing rg5 applied. 22:26 No provider procedures requiring assistance completed. rg5 Administered Medications: 16:07 Drug: NS 0.9% IV 1000 ml IV at 1 bolus Per protocol; to be given as a bolus over 60 kj2 minutes Route: IV; Rate: 1 bolus; Site: left antecubital; 19:01 Follow up: Response: No adverse reaction; IV Status: Completed infusion; IV Intake: kj2 1000ml 16:07 Drug: Promethazine IVP 12.5 mg IVP once Route: IVP; Site: left antecubital; kj2 16:36 Follow up: Response: No adverse reaction kj2 19:00 Follow up: Response: No adverse reaction kj2 19:05 Drug: Ondansetron Oral Disintegrating Tablet Oral Disintegrating Tablet 8 mg PO once rg5 Route: PO; 20:48 Follow up: Response: No adverse reaction rg5 20:50 Drug: Ondansetron IVP 2 mg IVP once; over 2 minutes Route: IVP; Site: right hand; rg5 21:48 Follow up: Response: No adverse reaction rg5 20:50 Drug: Pantoprazole IVP 40 mg IVP once Route: IVP; Site: right hand; rg5 21:48 Follow up: Response: No adverse reaction rg5 20:58 Drug: Ciprofloxacin PO 500 mg PO once Route: PO; rg5 21:49 Follow up: Response: No adverse reaction rg5 20:58 Drug: Pantoprazole PO 40 mg PO once Route: PO; rg5 21:49 Follow up: Response: No adverse reaction rg5 21:45 Drug: Promethazine IM 25 mg IM once Route: IM; Site: right deltoid; rg5 22:06 Follow up: Response: No adverse reaction rg5 Medication: 16:08 VIS not applicable for this client. kj2 Intake: 19:01 IV: 1000ml; Total: 1000ml. kj2 Outcome: 19:13 Discharge ordered by MD. devi 22:20 Discharged to home rg5 22:20 Condition: stable 22:20 Discharge instructions given to patient, Instructed on discharge instructions, follow rg5 up and referral plans. Demonstrated understanding of instructions, follow-up care, medications, Prescriptions given X 4, 22:23 Patient left the ED. rg5 Signatures: Dispatcher [employer] EDMS Rashi [facility] MD MD cha Lewis, Lynsay, RN RN ll1 Veena Zhu MD MD sp3 Alec Fuentes, RN RN rg5 Yudith Polanco, RN RN kj2 Altagracia Castaneda al6
[2024-06-04] MEDS ORDERED: CIPROFLOXACIN HCL 500 MG TAB ONE (19:31)
[2024-06-04] MEDS ORDERED: PANTOPRAZOLE 40MG TABLET PO ONE (19:31)
[2024-06-04] MEDS ORDERED: ONDANSETRON 4 MG/2 ML VIAL ONE (20:37)
[2024-06-04] MEDS ORDERED: PANTOPRAZOLE 40 MG INJ ONE (20:38)
[2024-06-04] MEDS ORDERED: METOCLOPRAMIDE 10 MG/2mL INJ ONE (21:37)
[2024-06-05 03:21] VITALS: BP 178/73; TEMP 97.2; O2SAT 96
== END 2024-06-04 22:23 | disposition home or self-care (01) ==
LOC: ER 14:14
DX: R11.0 Nausea (principal); K20.90 Esophagitis, unspecified without bleeding; N39.0 Urinary tract infection, site not specified; C16.9 Malignant neoplasm of stomach, unspecified; Z95.1 Presence of aortocoronary bypass graft
CPT/HCPCS: 85025; 81001; 36415; 82947; 83605; 83690; 80053; 74176; 96372; 99284; J2550 ×2; Q0162; J2470; J2405; J7030; J2765

== ENCOUNTER 2024-07-14 22:01 | Emergency (ER) | payer OTHER ==
--- OUTSIDE RECORDS SUMMARY | 2024-07-14 22:07 | XMS REPORT | Clinical Summary ---
Author Name Unknown Organization [facility] Address [address] [place] [address] Care Team Providers Care Mannequin Molder Name Role Phone Margoth Souza MD Primary Care Provider [phone] Mary Jane Cassidy MD Unavailable [phone] Barry He MD Unavailable Patience Hunt MD Unavailable ZhuEagle gomez DO Unavailable [phone] Marianela Hutchinson MD Unavailable [phone] Margoth Souza MD Unavailable Ceci Nicholson MD Unavailable [phone] Marianela Hutchinson MD Primary Care Provider [phone] Sigifredo Davenport MD Unavailable Allergies No known active allergies Medications insulin glargine-lixise natide (Soliqua 100/33) 100 unit-33 mcg/mL inpn Inject 15 Units/day under the skin daily. Active methocarbamol (ROBAXIN) 500 mg tabletIndicatio ns:Renal [...] (25 mg) by mouth twice daily. 01/20/20 24 Active atorvastatin (LIPITOR) 40 mg tablet Take 1 tablet (40 mg) by mouth daily. 01/20/20 24 Active pantoprazole (PROTONIX) 40 mg EC tablet Take 1 tablet (40 mg) by mouth every morning before breakfast. 02/29/20 24 Active clopidogrel (Plavix) 75 mg tablet Take 1 tablet (75 mg) by mouth daily. 01/20/20 24 Active prochlorperazin e (Compazine) 10 mg tabletIndicatio ns:Adenocarcino ma of stomach Take 1 tablet (10 mg) by mouth every 6 (six) hours as needed for nausea or vomiting. 30 tablet 2 04/09/20 24 Active amLODIPine (NORVASC) 5 mg tablet DAILY 02/28/20 24 Active metFORMIN (GLUCOPHAGE-XR) 500 mg 24 hr tablet Take 2 tablets every day by oral route with meals for 30 days. 12/12/19 23 Active sucralfate (CARAFATE) 100 mg/mL suspension BEFORE MEALS AND AT BEDTIME 02/29/20 24 Active OLANZapine (ZyPREXA) 2.5 mg tabletIndicatio ns:Adenocarcino ma of stomach Take 1 tablet (2.5 mg) by mouth at bedtime. 30 tablet 1 05/04/20 24 Active promethazine (PHENERGAN) 25 mg tabletIndicatio ns:Adenocarcino ma of stomach Take 1 tablet (25 mg) by mouth every 6 (six) hours as needed for nausea or vomiting. 60 tablet 2 05/04/20 24 Active ondansetron (Zofran) 8 mg tabletIndicatio ns:Adenocarcino ma of stomach Take 1 tablet (8 mg) by mouth every 8 (eight) hours as needed for nausea or vomiting. 30 tablet 2 05/04/20 24 Active dapagliflozin propanediol (Farxiga) 10 mg tablet Take 1 tablet (10 mg) by mouth daily. 024 Discontinued metFORMIN (GLUCOPHAGE) 500 mg tablet Take 2 tablets (1,000 mg) by mouth 2 (two) times a day with meals. 025 Discontinued tadalafil (CIALIS) 5 mg tablet Take [...] 01/03/20 24 024 traMADol (ULTRAM) 50 mg tabletIndicatio ns:Renal mass Take 1 tablet (50 mg) by mouth every 4 (four) hours as needed for moderate pain or severe pain. 20 tablet 4 1:52 PM CDT 01/03/20 24 024 Discontinued(St op Taking at Discharge) metoclopramide (Reglan) 5 mg tabletIndicatio ns:Adenocarcino ma, NOS of stomach, NOS,Nausea Take 1 tablet (5 mg) by mouth 4 (four) times a day before meals and nightly for 28 days. 56 tablet 1 04/14/20 24 024 Discontinued oxyCODONE (ROXICODONE) 5 mg/5 mL solutionIndicat ions:Adenocarci noma of stomach Take 5 mL (5 mg) by mouth every 6 (six) hours as needed for moderate pain or severe pain (pain not relieved by Tylenol). 60 mL 4 3:43 PM PILE OPERATOR 04/15/20 24 025 Discontinued fluconazole (Diflucan) 40 mg/mL suspensionIndic ations:Candidal esophagitis Take 10 mL (400 mg) by mouth daily for 1 day, THEN 5 mL (200 mg) daily for 13 days. 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 01/02/2024 04/14/2024 Diabetic ketoacidosis 2023 Overview (01/01/2024): Hospitalized locally 12/03/2023-12/06/2023 Encounters Date Type Department Care Team Description 07/09/2024 11:30 AM PILE OPERATOR - 07/09/2024 11:59 PM PILE OPERATOR Hospital Encounter [facility] [address] [place] [address], [place] [address] Gillian Gomez PA-C Discharge Disposition: Home 07/07/2024 Orders Only [facility] [address] [place] [address] Main [facility], 7th [place] [phone] Gillian Gomez PA-C Adenocarcinoma of stomach (Primary Dx) 07/06/2024 Telephone [facility] - Surgical Oncology [address] [place] [address], 7th [place] [address] Mary Kay Santamaria, TERRITORY REPRESENTATIVE 07/06/2024 Orders Only [facility] - Surgical Oncology [facility] Main Bldg, 7th [place] [address] Mary Kay Santamaria, TERRITORY REPRESENTATIVE 07/06/2024 Orders Only [facility] [address] [place] [address] Main dg, 7th Floor Elevator [address] [place] [id number] Gillian Gomez PA-C Adenocarcinoma of stomach (Primary Dx) 07/06/2024 Multidisciplinary Visit [facility] [address] [place] [address] Main dg, 7th Floor Elev[address] [place] [id number] Gillian Gomez PA-C 07/06/2024 Orders Only [facility] [address] [place] [address] Main dg, 7th [place] [address] Donnell Van Adenocarcinoma of stomach (Primary Dx) 07/02/2024 11:00 AM PILE OPERATOR Nutrition Clinical Nutrition For your Nutrition appointment location directions please call: Marianela Hutchinson MD Munder, Kathryn, SCOTT Left without seen 07/02/2024 10:30 AM PILE OPERATOR Follow-Up [facility]cology [address] [place] [address] Main [facility], 7th Floor Elevator [address] [place] [phone] John Fong MD Adenocarcinoma of stomach 07/02/2024 Documentation [facility] [address] [place] [address] Main Bldg, 7th Floor Elevator [address] [place] [phone] John Fong MD 06/30/2024 3:33 PM PILE OPERATOR Anesthesia Event Perioperative Evaluation and Management Center [address] [place] [address] Main [facility], 6th Floor Elev[address] [place] [id number] Lien Antonio, RN 06/30/2024 12:25 PM PILE OPERATOR Anesthesia Event Endoscopy Center [address] [place] [address] Main [facility], 5th Floor Elevator [address] [place] [phone] Susana Kelly MD 06/30/2024 12:00 PM PILE OPERATOR - 06/30/2024 12:45 PM PILE OPERATOR Surgery [facility]oscopy Center [address] [place] [address] Main [facility], 5th [place] [address] Brandon Alcala MD DIAGNOSTIC UPPER GASTROINTESTINAL ENDOSCOPY 06/30/2024 10:15 AM PILE OPERATOR - 06/30/2024 2:24 PM PILE OPERATOR Hospital Encounter Endoscopy Center [address] [place] [address], 5th [place] [address] Brandon Alcala MD Adenocarcinoma of stomach Discharge Disposition: Home 06/30/2024 Travel 06/29/2024 9:00 AM PILE OPERATOR Consult Perioperative Evaluation and Management [address] [place] [address], 6th [place] [address] Mary Kay Santamaria APRN Vu, Khanh D, MD Encounter for preprocedural cardiovascular examination (Primary Dx); Coronary arteriosclerosis, not otherwise specified; Cardiomyopathy, not otherwise specified; Hypertension; 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 of 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; Type 2 diabetes mellitus with hyperglycemia; Dyslipidemia; Hyponatremia; Hyperkalemia; Adenocarcinoma of stomach; Paroxysmal atrial fibrillation; Hyperlipidemia, not otherwise specified 06/29/2024 8:00 AM PILE OPERATOR POEM Appointments [facility] [address] [place] [address], 6th [place] [address] Marianela Hutchinson MD 06/29/2024 7:30 AM PILE OPERATOR - 06/29/2024 11:59 PM PILE OPERATOR Hospital Encounter [facility] [address] [place] [address], 2nd [place] [address] Mary Kay Santamaria APRN Adenocarcinoma of stomach Discharge Disposition: Home 06/29/2024 Travel 06/23/2024 Documentation [facility] [address] [place] [address] Main [facility], 7th [place] [address] Mony Saavedra RN 06/22/2024 12:20 PM PILE OPERATOR Follow-Up [facility] [address] [place] [address], 7th [place] [address] Marianela Hutchinson MD Adenocarcinoma, NOS of stomach, NOS 06/22/2024 Orders Only [facility] [address] [place] [address], 7th [place] [address] Radha aCstellon [facility] 06/22/2024 Travel 06/20/2024 10:45 AM PILE OPERATOR - 06/20/2024 11:59 PM PILE OPERATOR Hospital Encounter [facility] [address] [place] [address], 3rd [place] [address] Adenocarcinoma, NOS of stomach, NOS; Malignant neoplasm of overlapping sites of esophagus Discharge Disposition: Home 06/20/2024 10:08 AM PILE OPERATOR - 06/20/2024 10:44 AM PILE OPERATOR Hospital Encounter [facility] [address] [place] [address], [place] [address] Gillian Gomez PA-C Adenocarcinoma, NOS of stomach, NOS Discharge Disposition: Home 06/16/2024 Telephone [facility] Surgical Oncology [address] [place] [address], 7th [place] [address] Mary Kay Santamaria, TERRITORY REPRESENTATIVE 06/15/2024 1:30 PM PILE OPERATOR [facility] [address] [facility], 8th [place] [address] Marianela Hutchinson MD [facility] Tyson RN Adenocarcinoma of stomach (Primary Dx); Iron deficiency anemia, not otherwise specified 06/15/2024 12:40 PM PILE OPERATOR Follow-Up [facility] [address] [place] [address], 7th [place] [address] Marianela Hutchinson MD Adenocarcinoma, NOS of stomach, NOS; Malignant neoplasm of overlapping sites of esophagus 06/15/2024 10:24 AM PILE OPERATOR - 06/15/2024 11:59 PM PILE OPERATOR Hospital Encounter [facility] [address] [place] [address], [place] [address] Marianela Hutchinson MD Adenocarcinoma of stomach; Adenocarcinoma, NOS of stomach, NOS Discharge Disposition: Home 06/15/2024 Orders Only [facility] Main Bldg, 7th [place] [address] Radha Castellon [facility] Adenocarcinoma of stomach (Primary Dx) 06/15/2024 Orders Only [facility] [address] Main [address]ldg, 7th [place] [address] Gillian Gomez PA-C 06/15/2024 Travel 06/15/2024 Telephone [facility] - Gastroenterology, Hepatology & Nutrition [facility] Main Bldg, 7th [place] [address] Arnaldo Araujo PA-C 06/15/2024 Multidisciplinary Visit [facility] [address]ldg, 7th [place] [address] Lakeshia Pablo PA 06/15/2024 Orders Only [facility] Main Bldg, 7th [place] [address] Marianela Hutchinson MD Adenocarcinoma of stomach (Primary Dx) 06/12/2024 Prep for Surgery [facility] - Gastroenterology, Hepatology & Nutrition [address] [facility] Main Bldg, 7th [place] [address] Arnaldo Araujo PA-C Adenocarcinoma of stomach (Primary Dx) 06/12/2024 Telephone [facility] - Surgical Oncology [facility] Main Bldg, 7th [place] [address] Mary Kay Santamaria APRN 06/12/2024 Orders Only [facility] - Surgical Oncology [address], 7th [place] [address] Mary Kay Santamaria APRN Adenocarcinoma of stomach (Primary Dx) 06/10/2024 Orders Only [facility] - Surgical Oncology [address], 7th [place] [address] Santamaria, Mary Kay Neva, TERRITORY REPRESENTATIVE Adenocarcinoma of stomach (Primary Dx) 06/05/2024 Telephone [facility] - Gastroenterology, Hepatology & Nutrition [facility], 7th [place] [address] Arnaldo Araujo PA-C 06/03/2024 5:30 PM PILE OPERATOR [facility] [address] [facility], 8th [place] [address] Marianela Hutchinson MD Lewandowski, Teresa M, RN Adenocarcinoma of stomach (Primary Dx) 06/03/2024 Travel 06/02/2024 Telephone [facility] [address] [place] [address], 7th [place] [address] Mony Saavedra RN 06/01/2024 1:00 PM PILE OPERATOR Infusion [facility], Floor 6 [place] [address] Marianela Hutchinson MD Shaik, Anna Marie B, RN Adenocarcinoma of stomach (Primary Dx); Iron deficiency anemia, not otherwise specified 06/01/2024 10:53 AM PILE OPERATOR - 06/01/2024 11:59 PM PILE OPERATOR Hospital Encounter [facility] [address] [place] [address], [place] [address] Marianela Hutchinson MD Adenocarcinoma of stomach; Iron deficiency anemia, not otherwise specified Discharge Disposition: Home 06/01/2024 Orders Only [facility] [address] [place] [address], 7th [place] [address] Marianela Hutchinson MD 06/01/2024 Orders Only [facility] [address] [place] [address], 7th [place] [address] Radha Castellon RPH Adenocarcinoma of stomach (Primary Dx); Iron deficiency anemia, not otherwise specified 06/01/2024 Travel 06/01/2024 Orders Only [facility] [address] [facility], Floor 6 [place] [address] Marianela Hutchinson MD Adenocarcinoma of stomach (Primary Dx) 05/26/2024 Telephone [facility] - Gastroenterology, Hepatology & Nutrition [address] [place] [address] Main [facility], 7th [place] [address] Arnaldo Araujo PA-C 05/22/2024 Telephone [facility] - Gastroenterology, Hepatology & Nutrition [address] [place] [address] Main [facility], 7th [place] [address] Arnaldo Araujo PA-C 05/22/2024 Orders Only [facility] - Gastroenterology, Hepatology & Nutrition [address] [place] [address] Main [facility], 7th [place] [address] Arnaldo Araujo PA-C Candidal esophagitis (Primary Dx) 05/20/2024 4:30 PM PILE OPERATOR - 05/20/2024 11:59 PM PILE OPERATOR Hospital Encounter Ambulatory Treatment Center - [address] Main [facility], 2nd Floor, [place] [address] Marianela Hutchinson MD Lewandowski, Teresa M, RN Adenocarcinoma of stomach Discharge Disposition: Home 05/19/2024 12:44 PM PILE OPERATOR Anesthesia Event Endoscopy Center [address] [place] [address] Main [facility], 5th [place] [address] Maurice Ferrera MD [facility] 05/19/2024 12:00 PM PILE OPERATOR - 05/19/2024 1:10 PM PILE OPERATOR Surgery [facility]oscopy Center [address] [place] [address] Main [facility], 5th [place] [address] Brandon Alcala MD UPPER GASTROINTESTINAL ENDOSCOPY OF ESOPHAGUS, STOMACH, OR DUODENUM ANDJ ADJACENT STRUCTURES, WITH ENDOSCOPIC ULTRASOUND EXAMINATION 05/19/2024 11:17 AM PILE OPERATOR - 05/19/2024 2:49 PM PILE OPERATOR Hospital Encounter Endoscopy Center [address] [place] [address] Main [facility], 5th [place] [address] Bradnon Alcala MD Adenocarcinoma of stomach Discharge Disposition: Home 05/19/2024 Travel 05/18/2024 1:00 PM PILE OPERATOR Infusion [facility] [address] [facility], Floor 6 [place] [address] Marianela Hutchinson MD Rupp, Alexa B, RN Adenocarcinoma of stomach (Primary Dx) 05/18/2024 12:20 PM PILE OPERATOR Follow-Up [facility] [address] [place] [address], 7th [place] [address] Marianela Hutchinson MD Adenocarcinoma, NOS of stomach, NOS 05/18/2024 11:00 AM PILE OPERATOR POEM Appointments [facility] Management Center [address] [place] [address], 6th [place] [address] Marianela Hutchinson MD 05/18/2024 10:32 AM PILE OPERATOR - 05/18/2024 11:59 PM PILE OPERATOR Hospital Encounter [facility] [address] [place], [place] [address] [address] Gillian Gomez PA-C Adenocarcinoma, NOS of stomach, NOS Discharge Disposition: Home 05/18/2024 Orders Only [facility] [address] [place] [address], 7th [place] [address] Marianela Hutchinson MD Adenocarcinoma of stomach (Primary Dx) 05/18/2024 Orders Only [facility] [address] [place] [address], 7th [place] [address] Radha Castellon, [facility] Adenocarcinoma of stomach (Primary Dx); Iron deficiency anemia, not otherwise specified 05/18/2024 Travel 05/15/2024 11:59 PM PILE OPERATOR Anesthesia Event [facility] Management Center [address] [place] [address], [facility] [place] [address] Eri Lynne, RN 05/06/2024 5:30 PM PILE OPERATOR [facility] [address] [facility], 8th [place] [address] Marianela Hutchinson MD Pagara, Leni S, RN Adenocarcinoma of stomach 05/04/2024 12:36 PM PILE OPERATOR - 05/04/2024 11:59 PM PILE OPERATOR Hospital Encounter Ambulatory Treatment Center - Main Building [facility], 2nd Floor, Elevator B [address]vator [address] [place] [phone] Gillian Gomez PA-C Jo, Edifia Sungsoon, RN Adenocarcinoma of stomach (Primary Dx) Discharge Disposition: Home 05/04/2024 12:20 PM PILE OPERATOR Follow-Up [facility] [address] [place] [address], 7th Floor [address] [place] [phone] Marianela Hutchinson MD Adenocarcinoma, NOS of stomach, NOS 05/04/2024 11:10 AM PILE OPERATOR - 05/04/2024 12:35 PM PILE OPERATOR Hospital Encounter [facility] [address] [place] [address], [place] [address] Gillian Gomez PA-C Adenocarcinoma, NOS of stomach, NOS; Adenocarcinoma of stomach Discharge Disposition: Home 05/04/2024 Orders Only [facility] [address] [place] [address], 7th Floor [address] [place] [phone] Marianela Hutchinson MD Adenocarcinoma of stomach (Primary Dx) 05/04/2024 Orders Only [facility] [address] [place] [address], 7th [place] [address] Radha Castellon RPH Adenocarcinoma of stomach (Primary Dx) 05/04/2024 Travel 04/30/2024 Orders Only [facility] - Surgical Oncology [address] [place] [address], 7th [place] [address] Mary Kay Santamaria APRN Adenocarcinoma of stomach (Primary Dx); Paroxysmal atrial fibrillation; Hyperlipidemia, not otherwise specified; Type 2 diabetes mellitus with hyperglycemia 04/27/2024 8:05 PM PILE OPERATOR Ancillary Procedure Image Library [address] [place] [id number] Cancer 04/27/2024 8:00 PM PILE OPERATOR Ancillary Procedure Image Library [address] [place] [address] Cancer 04/27/2024 Orders Only [facility] [address] [place] [address], 7th [place] [address] Donnell Van Adenocarcinoma of stomach (Primary Dx) 04/24/2024 Documentation [facility] [address] [facility], 8th [place] [address] Mary Kay Santamaria, TERRITORY REPRESENTATIVE 04/24/2024 Orders Only [facility] - Surgical Oncology [address] [place] [address], [facility] [place] [address] Mary Kay Santamaria, TERRITORY REPRESENTATIVE Adenocarcinoma, NOS of stomach, NOS (Primary Dx) 04/24/2024 Telephone [facility] - Surgical Oncology [address] [place] [address], [facility] [place] [address] Mary Kay Santamaria, TERRITORY REPRESENTATIVE 04/22/2024 Lab Requisition [facility] Sincere Moralez MD Jain, Shilpa, MD 04/21/2024 Orders Only [facility] [address] [place] [address], 7th [place] [address] Gillian Gomez PA-C Adenocarcinoma, NOS of stomach, NOS (Primary Dx); Adenocarcinoma of stomach 04/16/2024 Telephone [facility] [address] [place] [address] 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, operations associate Call 04/15/2024 10:09 AM PILE OPERATOR Anesthesia Event MAIN OR [address] [place] [address] Meenakshi Crowe MD Miller, Wendy, CRNA 04/15/2024 10:05 AM PILE OPERATOR - 04/15/2024 1:25 PM PILE OPERATOR Surgery MAIN OR [address] [place], [place] [phone] John Fong MD ROBOTIC ASSISTED SURGICAL LAPAROSCOPY 04/15/2024 7:32 AM PILE OPERATOR - 04/15/2024 11:50 PM PILE OPERATOR Hospital Encounter MAIN OR [address] [place], [place] [phone] John Fong MD Adenocarcinoma of stomach (Primary Dx) Discharge Disposition: Home 04/15/2024 Travel 04/14/2024 2:30 PM PILE OPERATOR Consult [facility] - Surgical Oncology [address] [place] [address], 7th [place] [address] Gillian Gomez PA-C Badgwell, Brian, MD Adenocarcinoma, NOS of stomach, NOS (Primary Dx); Nausea 04/14/2024 Documentation [facility] - Surgical Oncology [address] [place] [address], [facility] Floor [facility] [place] [address] John Fong MD 04/13/2024 3:00 PM PILE OPERATOR Consult [facility] [address] [place] [address], [address] [place] [address] Marianela Hutchinson MD Mass of stomach (Primary Dx) 04/13/2024 2:02 PM PILE OPERATOR Anesthesia Event Perioperative Evaluation [facility] Management Center [address] [place] [address], [place] [address] Curtis Moctezuma PA 04/12/2024 8:22 AM PILE OPERATOR - 04/12/2024 3:42 PM PILE OPERATOR Emergency MAIN P06B [address] [place] [address] Nghia Zhu MD Elsayem, Ahmed, MD Nausea and vomiting (Primary Dx); Gastric cancer; Pancreatitis Discharge Disposition: Left Against Medical Advice 04/12/2024 Travel 04/09/2024 8:25 PM PILE OPERATOR Ancillary Procedure Image Library [address] [place] [address] Margoth Souza MD Cancer 04/09/2024 8:20 PM PILE OPERATOR Ancillary Procedure Image Library [address] [place] [address] Margoth Souza MD Cancer 04/09/2024 8:15 PM PILE OPERATOR Ancillary Procedure Image Library [address] [place] [address] Margoth Souza MD Cancer 04/09/2024 8:10 PM PILE OPERATOR Ancillary Procedure Image Library [address] [place] [address] Margoth Souza MD Cancer 04/09/2024 8:05 PM PILE OPERATOR Ancillary Procedure Image Library [address] [place] [address] Margoth Souza MD Cancer 04/09/2024 8:00 PM PILE OPERATOR Ancillary Procedure Image Library [address] [place] [address] Margoth Souza MD Cancer 04/09/2024 10:48 AM PILE OPERATOR - 04/09/2024 11:59 PM PILE OPERATOR Hospital Encounter [facility] [address] [place] [address], [place] [address] Ceci Nicholson MD Encounter for other preprocedural examination; Atherosclerosis of coronary 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, not otherwise specified; 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 Discharge Disposition: Home 04/09/2024 10:00 AM PILE OPERATOR POEM Appointments [facility] [address] [place] [address], 6th [place] [address] Margoth Souza MD 04/09/2024 9:56 AM PILE OPERATOR - 04/09/2024 10:47 AM PILE OPERATOR Hospital Encounter [facility] - Cardiology [address] [place] [address], 2nd [place] [address] Ceci Nicholson MD Adenocarcinoma of stomach; Hyperlipidemia, not otherwise specified; Encounter for other preprocedural examination; Atherosclerosis of coronary 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, not otherwise specified Discharge Disposition: Home 04/09/2024 9:00 AM PILE OPERATOR Consult Perioperative Evaluation and Management [address] [place] [address], 6th [place] [address] Mary Kay Santamaria APRN Misoi, Mercy W, MD Encounter for other preprocedural examination (Primary Dx); Adenocarcinoma of stomach; Paroxysmal atrial fibrillation; Hypertension; 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; Hyperlipidemia, not otherwise specified; Current use of 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; Atherosclerosis of coronary 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, not otherwise specified 04/09/2024 Travel 04/08/2024 Prep for Surgery [facility], [address] [place] [address] [place] [address] Mary Kay Santamaria APRN Adenocarcinoma of stomach (Primary Dx); Mass of stomach 04/08/2024 Orders Only [facility], [address] [place] [address] [place] [address] Mary Kay Santamaria APRN Adenocarcinoma of stomach (Primary Dx); Paroxysmal atrial fibrillation; Hypertension; 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; Hyperlipidemia, not otherwise specified; Current use of 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 04/08/2024 Orders Only [facility] [address] [place] [address], [address] [place] [address] [place] [address] Gillian Gomez PA-C Adenocarcinoma, NOS of stomach, NOS (Primary Dx) 04/06/2024 [facility] [address] [place] [address], [facility] [place] [address] Roberto Poole PA 04/06/2024 [facility] [address] [place] [address], [facility] [place] [address] Roberto Poole PA Mass of stomach (Primary Dx) 04/06/2024 Orders [facility] [address] [place] [address], [facility] [place] [address] Roberto Poole PA Mass of stomach (Primary Dx) 04/06/2024 Telephone [facility] [address] [place] [address], [facility] [place] [address] Anais Meng RN 02/11/2024 Travel 02/10/2024 3:30 PM CDT Telemedicine [facility] [address] [place] [address], [facility] [place] [address] Margoth Souza MD Renal mass (Primary Dx) 01/02/2024 7:15 AM CDT Ancillary Procedure MAIN OR [address] [place] [address] Margoth Souza MD 01/02/2024 7:00 AM CDT - 01/02/2024 11:40 AM CDT Surgery MAIN OR [address] [place] [address] Margoth Souza MD ROBOTIC ASSISTED PARTIAL NEPHRECTOMY 01/02/2024 6:58 [place] [address] [place] [address] Alonzo Liu MD Majekodumi, Jessy, CRNA 01/02/2024 5:04 AM CDT - 01/03/2024 5:05 PM CDT Hospital Encounter MAIN P09B [address] [place] [id number] Margoth Souza MD Renal mass (Primary Dx) Discharge Disposition: Home 01/02/2024 Travel 12/31/2023 1:04 PM CDT - 12/31/2023 11:59 PM CDT Hospital Encounter Main CT IMAGING [facility], 3rd Floor Elevator [place] [phone] Margoth Souza MD Renal mass Discharge Disposition: Home 12/31/2023 8:00 AM CDT Consult Endocrine Center [address] [place] [address], 6th [place] [address] Nakia Kirby APRN Khan, Sonya, MD Type 2 diabetes mellitus with hyperglycemia [E11.65] (Primary Dx); Pre-surgery evaluation 12/30/2023 9:30 AM CDT Office Visit [facility] Cancer [facility] [address] [facility], 7th Floor Ele[address] [place] [phone] Margoth Souza MD Renal mass 12/30/2023 Travel 12/30/2023 Telephone Endocrine Center [facility], 6th [place] [address] Rn Clinical, Winnie G, RN Appointment (Cannot get internet-phone broke) 12/30/2023 Orders Only [facility] [address] [facility], 7th [place] [address] Roberto Poole PA Renal mass (Primary Dx) 12/29/2023 Orders Only Endocrine Center [address] [place] [address], [address] [place] [address] [place] [address] Veronica Del Castillo APRN 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); Endocrine/metabolic screening; Renal cell carcinoma <Left side> 12/25/2023 8:36 AM CDT Anesthesia Event [facility] Management Center [address] [place], [place] [phone] Lien Antonio RN 12/23/2023 10:30 AM CDT Consult Perioperative Evaluation and Management [address] [place] [address] Margoth Souza MD Oh, Jeong, MD Encounter for other preprocedural examination (Primary Dx); Renal mass; Hyperlipidemia, not otherwise specified 12/23/2023 9:00 AM CDT POEM Appointments Perioperative Evaluation [facility] Management Center [address] [place], [place] [address] [address] Margoth Souza MD Pre-surgery evaluation (Primary Dx) 12/23/2023 8:45 AM CDT - 12/23/2023 11:59 PM CDT Hospital Encounter [facility] [address] [place] [address] Margoth Souza MD Renal mass Discharge Disposition: Home 12/23/2023 Travel 12/09/2023 9:33 AM CDT - 12/09/2023 11:59 PM CDT Hospital Encounter [facility] [address] [place] [address] Veronica Del Castillo APRN 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; Endocrine/metabolic screening Discharge Disposition: Home 12/09/2023 8:30 AM CDT Consult Endocrine Center [address] [facility], 6th [place] [address] Mary Jane Cassidy MD 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); Endocrine/metabolic screening; Renal cell carcinoma <Left side> 12/09/2023 Travel 10/23/2023 Orders Only [facility] [address] [place] [address], 7th [place] [address] Roberto Poole PA Renal mass (Primary Dx); Adrenal mass 10/03/2023 9:30 AM CDT - 10/03/2023 11:59 PM CDT Hospital Encounter Interventional Radiology [address] [place] [address], 4th [place] [address] Shazia Arriaza MD McRae, Stephen, MD Renal mass Discharge Disposition: Home 10/03/2023 8:30 AM CDT - 10/03/2023 9:29 AM CDT Hospital Encounter [facility] [address] [place] [address] Margoth Souza MD Renal mass Discharge Disposition: Home 10/03/2023 Travel 10/02/2023 8:24 AM CDT - 10/02/2023 11:59 PM CDT Hospital Encounter Interventional Radiology [address] [place] [address], 4th [place] [address] Margoth Souza MD , [facility] Justina, PAJeanC Encounter for other preprocedural examination (Primary Dx); Renal mass; 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 Discharge Disposition: Home 10/02/2023 Travel 09/24/2023 7:46 AM CDT - 09/24/2023 11:59 PM CDT Hospital Encounter [facility] [address] [place] [address] Roberto Poole PA Adrenal mass Discharge Disposition: Home 09/20/2023 Orders Only [facility] [address] [place] [address], 7th [place] [address] Roberto Poole PA Adrenal mass (Primary Dx) 09/19/2023 11:45 AM CDT Ancillary Procedure X-Ray Outpatient Center [address] [place] [address], 7th [place] [address] Shazia Arriaza MD Renal mass 09/19/2023 9:20 AM CDT - 09/19/2023 11:59 PM CDT Hospital Encounter [facility] [address] [place] [address] Shazia Arriaza MD Adenoma, NOS of adrenal gland, NOS <Left> Discharge Disposition: Home 09/19/2023 Orders Only Interventional Radiology [address] [place] [address], 4th [place] [address] Abilio Ng PA-C Renal mass (Primary Dx) 09/19/2023 Travel 09/19/2023 Telephone [facility] [address] [place] [address] Barbara Rees MA 09/16/2023 4:00 PM CDT - 09/16/2023 11:59 PM CDT Hospital Encounter [facility] [address] [place] [address] Shazia Arriaza MD Renal mass; Adrenal mass Discharge Disposition: Home 09/16/2023 2:00 PM CDT Office Visit [facility] [address] [place] [address], 7th [place] [address] Margoth Souza MD Renal mass (Primary Dx); Adrenal mass; Adenoma, NOS of adrenal gland, NOS <Left>; 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 09/16/2023 12:30 PM CDT NPR MDA PATIENT ACCESS 09/16/2023 Travel 08/08/2023 8:00 PM CDT Ancillary Procedure [facility] [address] [place] [address] Margoht Souza MD Cancer 08/08/2023 6:40 AM CDT Ancillary Procedure [facility] [address] [place] [address] Margoth Souza MD Cancer after 07/15/2023 Surgical History Surgery Date Site/Laterality Comments TOE AMPUTATION x2, 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, 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 APPENDECTOMY 05/20/1973 - 05/19/1974 Open WRIST SURGERY Left HAND SURGERY Right HIP ARTHRODESIS W/ ILIAC CRE ST BONE GRAFT Bilateral For hand surgeries CERVICAL SPINE SURGERY C3-6 fusion, x2 OK LAPAROSCOPY SURG PARTIAL NEPHRECTOMY 01/02/2024 Abdomen/Left Procedure: ROBOTIC ASSISTED PARTIAL NEPHRECTOMY; Surgeon: Margoth Souza MD; Location: MAIN OR; Service: UROLOGY CHG ULTRASONIC GUIDANCE INTRAOPERATIVE 01/02/2024 Left Procedure: INTROPERATIVE ULTRASOUND - PERFORMED BY SURGEON; Surgeon: Margoth Souza MD; Location: MAIN OR; Service: UROLOGY CORONARY ARTERY BYPASS GRAFT 01/07/2024 OK LAPS ABD PRTM&OMENTUM DX W/WO SPEC BR/WA SPX 04/15/2024 Abdomen/N/A Procedure: ROBOTIC ASSISTED SURGICAL LAPAROSCOPY; Surgeon: John Fong MD; Location: MAIN OR; Service: SURG ONC - GASTRIC/HIPEC Medical devices from this surgery are in the Medical Devices section. G FLUORO CENTRAL VENOUS AC CESS DEV PLACEMENT [...] surgery are in the Medical Devices section. OK INSJ TUNNELED CTR VAD W/S UBQ PORT AGE 5 YR/> 04/15/2024 Neck/N/A Procedure: PORT-A-CATH PLACEMENT; Surgeon: John Fong MD; Location: MAIN OR; Service: SURG ONC - GASTRIC/HIPEC Medical devices from this surgery are in the Medical Devices section. OK ESOPHAGOGASTRODUODENOSCOP Y US SCOPE W/ADJ STRXRS 05/19/2024 Esophagus/N/A Procedure: UPPER GASTROINTESTINAL ENDOSCOPY OF ESOPHAGUS, STOMACH, OR DUODENUM ANDJ ADJACENT STRUCTURES, WITH ENDOSCOPIC ULTRASOUND EXAMINATION; Surgeon: Brandon Alcala MD; Location: MAIN ENDOSCOPY; Service: GASTROENTEROLOGY OK ESOPHAGOGASTRODUODENOSCOP Y TRANSORAL DIAGNOSTIC 06/30/2024 Esophagus/N/A Procedure: DIAGNOSTIC UPPER GASTROINTESTINAL ENDOSCOPY; Surgeon: Brandon Alcala MD; Location: MAIN ENDOSCOPY; Service: GASTROENTEROLOGY Medical History Medical History Date Comments Neuropathy Hyperlipidemia Gastro-esophageal reflux dis ease without esophagitis Osteomyelitis Renal cell carcinoma <Left side> sp partial nephrectomy Coronary arteriosclerosis pt had NSTEMI. sp CABG 5v 12/2023. pt reports that he presented with nausea, and feeling unwell 20 emergency room in December of this year and was found to have multivessel CAD Diabetic ketoacidosis 11/2023 Hospitaliz ed locally 12/03/2023-12/06/2023 of note, pt was on [facility] Peripheral vascular disease 2023 Left LE s/p surgical angioplasty x2 (last on June 2023). Cardiomyopathy echo 12/2023: EF 40-45% Adrenal mass Patient followed up with Dr. Cassidy on 12/09/23 for left adrenal mass with a normal findings of ACTH of 22, DHEA-sulfate of 81 and cortisol of 11.39 that did not suggest any intervention for adrenal insufficiency. Type 2 diabetes mellitus 1986 Hypertension 2010 History of anemia Family History Medical History Relation Name Comments Diabetes Brother Diabetes Father Hypertension Father Stroke Father Stroke Maternal Grandfather COD Diabetes Mother Hypertension Mother Stroke Mother Coronary artery disease Neg Hx VTE Neg Hx Relation Name Status Comments Brother Father Maternal Grandfather Mother Social History Tobacco Use Types Packs/Day Years Used Date Smoking Tobacco: Never Smokeless Tobacco: Never Alcohol Use Standard Drinks/Week Comments Not Currently 0 (1 standard drink = 0.6 oz pur e alcohol) Sex and Gender Information Value Date Recorded Sex Assigned at Not on file Legal Sex Male 11:38 AM PILE OPERATOR Gender Identity Not on file Sexual Orientation Not on file Occupation Industry Job Start Date Job End Date retired from [employer] Not on file N ot on file Not on file Travel History Travel Start Travel End [place] 04/12/2024 04/12/2024 Obstetrics History Last Filed Vital Signs Vital Sign Reading Time Taken Comments Blood Pressure 181/94 07/02/2024 10:23 AM PILE OPERATOR Pulse 71 07/02/2024 10:23 AM PILE OPERATOR Temperature 36.1 C (97 F) 06/30/2024 1:35 PM PILE OPERATOR Respiratory Rate 18 07/02/2024 10:23 AM PILE OPERATOR Oxygen Saturation 99% 07/02/2024 10:23 AM PILE OPERATOR Inhaled Oxygen Concentration - - Weight 84.2 kg (185 lb 10 oz) 06/30/2024 10:35 A M PILE OPERATOR Height 188 cm (6' 2") 05/19/2024 11:53 AM PILE OPERATOR Body Mass Index 23.83 05/19/2024 11:53 AM PILE OPERATOR Plan of Treatment Upcoming Encounters Date Type Department Care Team (Late st Contact Info) Description 07/15/2024 10:15 AM PILE OPERATOR Appointment Diagnostic Laboratory Center [address] [place] [address] Main [facility], [place] [address] Mary Kay Santamaria APRN [facility] [place] [address] [email or web address] 07/15/2024 12:15 PM PILE OPERATOR Appointment Main CT IMAGING [facility] Main [facility], 3rd [place] [address] Mary Kay Santamaria APRN [facility] [place] [address] [email or web address] 02/01/2025 11:30 AM CDT Appointment [facility] [address] [place] [address] Main [facility], [place] [address] Veronica Del Castillo APRN [address] [place] [address] [email or web address] 02/01/2025 11:45 AM CDT Appointment Main CT IMAGING [address] [facility] Main [facility], 3rd [place] [address] Veronica Del Castillo APRN [facility] [place] [address] [email or web address] 02/01/2025 3:00 PM CDT Follow-Up Endocrine Center [address] [place] [address], 6th [place] [address] Mary Jane Cassidy MD [address] [place] [phone] [email or web address] 02/05/2025 10:45 AM CDT Lab [facility] Cancer Center [address] [place] [address], [facility] [place] [address] Margoth Souza MD [address] [place] [phone] [email or web address] 02/05/2025 11:15 AM CDT Ancillary Procedure X-Ray Outpatient Center [address] [place] [address], [facility] Floor [facility] [place] [address] Margoth Souza MD [address] [place] [phone] [email or web address] 02/05/2025 11:55 AM CDT Ancillary Procedure CT Imaging [address] [place] [address], [facility] Floor [facility] [address] Margoth Souza MD [address] [place] [phone] [email or web address] 02/08/2025 2:30 PM CDT Telemedicine [facility] Cancer Center [address] [place] [address], [facility] [place] [address] Margoth Souza MD [address] [place] [phone] [email or web address] Health Maintenance Due Date Last Done Comments COVID-19 Vaccine (#1) 01/09/1969 Pneumococcal Vaccine: 50+ Years (1 of 2 - PCV) 983 01/09/1975 Influenza Vaccine (#1) 2024 08/04/2018 Medical Devices Implanted 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 [employer] Device Identifier Shelf Expiration Date Model / Serial / Lot Slade Muhammad 6fr - [id number] Implanted:Qty: 1 on 04/15/2024 by John Fong MD at [facility] [employer] Implant Right: Neck BARD ACCESS SYSTEMS 12/17/2024 [id number] / / [id number] Procedures Procedure Name Priority Date/Time Associated Diagnosis Comments [facility] IHC WORKUP Routine 07/07/2024 12:29 PM PILE OPERATOR Adenocarcinoma of stomach POC GLUCOSE SCREEN Routine 06/30/2024 1:23 PM PILE OPERATOR PATHOLOGY BIOPSY INTERPRETATION Routine 06/30/2024 12:51 PM PILE OPERATOR Adenocarcinoma of stomach OK ESOPHAGOGASTRODUODENOSCOP Y TRANSORAL DIAGNOSTIC 06/30/2024 12:15 PM PILE OPERATOR Adenocarcinoma of stomach Case Notes 06/12 per gene to schedule on 06/30, per tor to schedule 06/30 thru lunch last AM case, slot held to offer. LVM and sent mychart to schedule-DC Special Needs [employer] ED[employer] SPECIALISTARTURO PEREZ COMPLETE 06/18.[employer] EDUC[employer] SPECIALISTARTURO HERNANDEZ FOR DAUGHTER WITH DETAILED INSTRUCTIONS FOR PROCEDURE IN ADDITION TO HOLD ON PLAVIX FOR 5 DAYS.[employer] SPECIALIST[employer]O HERNANDEZ 1ST CALL 06/16. POC CHEM 8 Routine 06/30/2024 11:10 AM PILE OPERATOR POC GLUCOSE SCREEN Routine 06/30/2024 10:52 AM PILE OPERATOR POC CHEM 8 Routine 06/29/2024 9:54 AM PILE OPERATOR EKG, 12-LEAD (SCHEDULED) Routine 06/29/2024 Adenocarcinoma of stomach PETCT F18 FDG (FLUORODEOXYGLUCOSE) WITH CONTRAST Routine 06/20/2024 12:42 PM PILE OPERATOR Adenocarcinoma, NOS of stomach, NOS Malignant neoplasm of overlapping sites of esophagus POC GLUCOSE SCREEN Routine 06/20/2024 11:06 AM PILE OPERATOR .CBC Routine 06/20/2024 10:35 AM PILE OPERATOR Adenocarcinoma, NOS of stomach, NOS CARCINOEMBRYONIC ANTIGEN Routine 025 10:35 AM PILE OPERATOR Adenocarcinoma, NOS of stomach, NOS LACTATE DEHYDROGENASE Routine 06/20/2024 10:35 AM PILE OPERATOR Adenocarcinoma, NOS of stomach, NOS PHOSPHORUS LEVEL Routine 06/20/2024 10:35 AM PILE OPERATOR Adenocarcinoma, NOS of stomach, NOS MAGNESIUM LEVEL Routine 06/20/2024 10:35 AM PILE OPERATOR Adenocarcinoma, NOS of stomach, NOS COMPREHENSIVE METABOLIC PANEL Routine 10:35 AM PILE OPERATOR Adenocarcinoma, NOS of stomach, NOS COMPLETE BLOOD COUNT W/ DIFFERENTIAL Routine 06/20/2024 10:35 AM PILE OPERATOR Adenocarcinoma, NOS of stomach, NOS .CBC Routine 06/15/2024 10:39 AM PILE OPERATOR Adenocarcinoma of stomach CARCINOEMBRYONIC ANTIGEN Routine 025 10:39 AM PILE OPERATOR Adenocarcinoma, NOS of stomach, NOS LACTATE DEHYDROGENASE Routine 06/15/2024 10:39 AM PILE OPERATOR Adenocarcinoma, NOS of stomach, NOS PHOSPHORUS LEVEL Routine 06/15/2024 10:39 AM PILE OPERATOR Adenocarcinoma, NOS of stomach, NOS MAGNESIUM LEVEL Routine 06/15/2024 10:39 AM PILE OPERATOR Adenocarcinoma, NOS of stomach, NOS COMPREHENSIVE METABOLIC PANEL Routine 10:39 AM PILE OPERATOR Adenocarcinoma of stomach COMPLETE BLOOD COUNT W/ DIFFERENTIAL Routine 06/15/2024 10:39 AM PILE OPERATOR Adenocarcinoma of stomach .CBC Routine 06/01/2024 11:10 AM PILE OPERATOR Adenocarcinoma of stomach TRANSFERRIN Routine 06/01/2024 11:10 AM PILE OPERATOR Iron deficiency anemia, not otherwise specified Adenocarcinoma of stomach FERRITIN Routine 06/01/2024 11:10 AM PILE OPERATOR Iron deficiency anemia, not otherwise specified Adenocarcinoma of stomach IRON LEVEL Routine 06/01/2024 11:10 AM PILE OPERATOR Iron deficiency anemia, not otherwise specified Adenocarcinoma of stomach COMPREHENSIVE METABOLIC PANEL Routine 11:10 AM PILE OPERATOR Adenocarcinoma of stomach COMPLETE BLOOD COUNT W/ DIFFERENTIAL Routine 06/01/2024 11:10 AM PILE OPERATOR Adenocarcinoma of stomach POC GLUCOSE SCREEN Routine 05/19/2024 1:52 PM PILE OPERATOR PATHOLOGY BIOPSY INTERPRETATION Routine 05/19/2024 1:10 PM PILE OPERATOR Adenocarcinoma of stomach OK ESOPHAGOGASTRODUODENOSCOP Y US SCOPE W/ADJ STRXRS 05/19/2024 12:34 PM PILE OPERATOR Adenocarcinoma of stomach Case Notes 04/24- WAITING FOR TRIAGE TO [place] FOR 05/01- Special Needs MULTIMEDIA EDUCATIONAL SPECIALIST [place] Call Completed 04/30/24ad laproscopy on 04/15/24 POC GLUCOSE SCREEN Routine 05/19/2024 12:21 PM PILE OPERATOR .CBC Routine 05/18/2024 10:55 AM PILE OPERATOR Adenocarcinoma, NOS of stomach, NOS CARCINOEMBRYONIC ANTIGEN Routine 024 10:55 AM PILE OPERATOR Adenocarcinoma, NOS of stomach, NOS LACTATE DEHYDROGENASE Routine 05/18/2024 10:55 AM PILE OPERATOR Adenocarcinoma, NOS of stomach, NOS PHOSPHORUS LEVEL Routine 05/18/2024 10:55 AM PILE OPERATOR Adenocarcinoma, NOS of stomach, NOS MAGNESIUM LEVEL Routine 05/18/2024 10:55 AM PILE OPERATOR Adenocarcinoma, NOS of stomach, NOS COMPREHENSIVE METABOLIC PANEL Routine 10:55 AM PILE OPERATOR Adenocarcinoma, NOS of stomach, NOS COMPLETE BLOOD COUNT W/ DIFFERENTIAL Routine 05/18/2024 10:55 AM PILE OPERATOR Adenocarcinoma, NOS of stomach, NOS .CBC Routine 05/04/2024 11:34 AM PILE OPERATOR Adenocarcinoma, NOS of stomach, NOS RESEARCH PROTOCOL [id number] Routine 05/04 11:34 AM PILE OPERATOR Adenocarcinoma of stomach CARCINOEMBRYONIC ANTIGEN Routine 024 11:34 AM PILE OPERATOR Adenocarcinoma, NOS of stomach, NOS LACTATE DEHYDROGENASE Routine 05/04/2024 11:34 AM PILE OPERATOR Adenocarcinoma, NOS of stomach, NOS PHOSPHORUS LEVEL Routine 05/04/2024 11:34 AM PILE OPERATOR Adenocarcinoma, NOS of stomach, NOS MAGNESIUM LEVEL Routine 05/04/2024 11:34 AM PILE OPERATOR Adenocarcinoma, NOS of stomach, NOS COMPREHENSIVE METABOLIC PANEL Routine 11:34 AM PILE OPERATOR Adenocarcinoma, NOS of stomach, NOS COMPLETE BLOOD COUNT W/ DIFFERENTIAL Routine 05/04/2024 11:34 AM PILE OPERATOR Adenocarcinoma, NOS of stomach, NOS VERIFY CATHETER TIP PLACEMENT Routine 3:50 PM PILE OPERATOR Adenocarcinoma of stomach POC GLUCOSE SCREEN Routine 04/15/2024 3:21 PM PILE OPERATOR XR CHEST 1 VW PORTABLE Routine 2:45 PM PILE OPERATOR POC GLUCOSE SCREEN Routine 04/15/2024 1:05 PM PILE OPERATOR POC GLUCOSE SCREEN Routine 04/15/2024 12:52 PM PILE OPERATOR CYTOLOGY NON-PRINCIPAL RESEARCH ECONOMIST INTERPRETATION Routine 04/15/2024 12:33 PM PILE OPERATOR Adenocarcinoma of stomach PATHOLOGY SURGICAL INTERPRETATION Routine 04/15/2024 12:13 PM PILE OPERATOR Adenocarcinoma of stomach FL CENTRAL VENOUS PLACE EXCHANGE Routine 04/15/2024 11:40 AM PILE OPERATOR Adenocarcinoma of stomach POC GLUCOSE SCREEN Routine 04/15/2024 9:22 AM PILE OPERATOR OK INSJ TUNNELED CTR VAD W/SUBQ PORT AGE 5 YR/> 04/15/2024 9:16 AM PILE OPERATOR Adenocarcinoma of stomach Special Needs MTL@0800 CHG US VASC ACCESS SITS VSL PATENCY NDL ENTRY 04/15/2024 9:16 AM PILE OPERATOR Adenocarcinoma of stomach Special Needs MTL@0800 CHG FLUORO CENTRAL VENOUS ACCESS DEV PLACEMENT 04/15/2024 9:16 AM PILE OPERATOR Adenocarcinoma of stomach Special Needs MTL@0800 OK LAPS ABD PRTM&OMENTUM DX W/WO SPEC BR/WA SPX 04/15/2024 9:16 AM PILE OPERATOR Adenocarcinoma of stomach Special Needs MTL@0800 CT ABDOMEN PELVIS W CONTRAST Routine 11:18 AM PILE OPERATOR .CBC Routine 04/12/2024 9:04 AM PILE OPERATOR LIPASE LEVEL Routine 04/12/2024 9:04 AM PILE OPERATOR AMYLASE LEVEL Routine 04/12/2024 9:04 AM PILE OPERATOR LACTATE DEHYDROGENASE Routine 04/12/2024 9:04 AM PILE OPERATOR FRACTIONATED BILIRUBIN Routine 9:04 AM PILE OPERATOR PHOSPHORUS LEVEL Routine 04/12/2024 9:04 AM PILE OPERATOR MAGNESIUM LEVEL Routine 04/12/2024 9:04 AM PILE OPERATOR COMPREHENSIVE METABOLIC PANEL Routine 9:04 AM PILE OPERATOR COMPLETE BLOOD COUNT W/ DIFFERENTIAL Routine 04/12/2024 9:04 AM PILE OPERATOR .CBC Routine 04/09/2024 11:09 AM PILE OPERATOR Encounter for other preprocedural examination Atherosclerosis of coronary 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, not otherwise specified THYROID STIMULATING HORMONE Routine 03/21 11:09 AM PILE OPERATOR Encounter for other preprocedural examination Atherosclerosis of coronary 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, not otherwise specified HEMOGLOBIN A1C Routine 04/09/2024 11:09 AM PILE OPERATOR 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 Encounter for other preprocedural examination COMPREHENSIVE METABOLIC PANEL Routine 11:09 AM PILE OPERATOR Encounter for other preprocedural examination Atherosclerosis of coronary 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, not otherwise specified COMPLETE BLOOD COUNT W/ DIFFERENTIAL Routine 04/09/2024 11:09 AM PILE OPERATOR Encounter for other preprocedural examination Atherosclerosis of coronary 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, not otherwise specified EKG, 12-LEAD (SCHEDULED) Routine 04/09/2024 Adenocarcinoma of stomach Hyperlipidemia, not otherwise specified Encounter for other preprocedural examination Atherosclerosis of coronary 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, not otherwise specified PATHOLOGY OUTSIDE INTERPRETATION Routine 04/02/[address] ABDOMEN AND PELVIS Routine 2023 8:21 AM PILE OPERATOR Cancer OSI CHEST Routine 03/23/2024 7:37 PM PILE OPERATOR Cancer OSI CT CHEST ABDOMEN PELVIS Routine 08/2023 7:37 PM PILE OPERATOR Cancer OSI CHEST Routine 03/23/2024 7:37 PM PILE OPERATOR Cancer OSI CT CHEST Routine 03/22/2024 8:21 AM PILE OPERATOR Cancer OSI CT ABDOMEN AND PELVIS Routine [...] 6:08 AM CDT Renal mass Special Needs [email or web address]:Please collect and send tissue to pathology window with appropriate label. [place] LAPAROSCOPY SURG PARTIAL NEPHRECTOMY 01/02/2024 6:08 AM CDT Renal mass Special Needs [email or web address]:Please collect and send tissue to pathology window [...] ABDOMEN AND PELVIS Routine 2023 7:40 AM PILE OPERATOR Cancer OSI CT BRAIN Routine 07/17/2023 7:40 AM PILE OPERATOR Cancer after 07/15/2023 Results * IHC Workup (07/07/2024 12:29 PM PILE OPERATOR) Tissue 07/07/2024 12:2 9 PM PILE OPERATOR 07/07/2024 12:29 PM PILE OPERATOR us Gillian Gomez PA-C, [facility] AP BIOMARKER ORDERABLE S Final Result Performing Organization Address City/State/[facility] Co de Phone Number [facility] [address] [address], [place] * (ABNORMAL) POC Glucose Screen - Fingerstick (06/30/2024 1:23 PM PILE OPERATOR) Only the most recent of24 resultswithin the time period is included. Glucose Screen 168(H) 70 - 99 mg/dL 06/30/2024 1:25 PM PILE OPERATOR [facility] POC Sample Type Capillary 06/30/2024 1:25 PM PILE OPERATOR [facility] Blood 06/30/2024 1:23 PM PILE OPERATOR 06/30/2024 1:25 PM PILE OPERATOR Narrative [facility] - 06/30/2024 1:25 PM PILE OPERATOR Capillary blood samples, e.g. obtained by fingerstick, [...] POCT ORDERABLES - DE VICE Final Result [facility] Unless otherwise noted, all lab tests performed by: Division of Pathology and Laboratory Medicine [facility] [place] [address] * Pathology Biopsy Interpretation (06/30/2024 12:51 PM PILE OPERATOR) Only the most recent of3 resultswithin the time period is included. Addendum 1 By immunohistochemistry, approximately 10% of the tumor cells show weakly to moderately cytoplasmic staining for claudin 18. By immunohistochemistry the combined positive score (CPS) for PD-L1 is <1. 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 07/10/2024 8:47 AM [facility] Gross Description A: Esophagus, lower esophageal ulcer at 37cm: Multiple soft light castillo tissue fragments, 0.7 x 0.6 x 0.1 cm in aggregate, entirely submitted in A1. ET 07/10/2024 8:47 AM [facility] Biomarker Block(s) Block for biomarker testing: A1 07/10/2024 8:47 AM [facility] Disclaimer "Some tests reported here may have been developed and performance characteristics determined by [facility]. These tests have not been specifically cleared or approved by the U.S. Food and Drug Administration. If applicable, controls were reviewed and showed appropriate reactivity." 07/10/2024 8:47 AM [facility] Tissue (Esophagus) 06/30/2024 12:51 PM PILE OPERATOR 06/30/2024 2:51 PM PILE OPERATOR us Brandon Galo MD LAB PATHOLOGY ORDERA BLES Edited Result - Final [facility] [address] [place] [address], [place] * (ABNORMAL) POC Chem 8 (06/30/2024 11:10 AM PILE OPERATOR) Only the most recent of2 resultswithin the time period is included. POC Sodium 136(L) 138 - 146 mmol/L 06/30/2024 11:13 AM [facility] POC Potassium 4.5 3.5 - 4.9 mmol/L 06/30/2024 11:13 AM [facility] POC Chloride 100 98 - 109 mmol/L 06/30/2024 11:13 AM [facility] POC VTCO2 27 24 - 29 mmol/L 06/30/2024 11:13 AM [facility] POC Anion Gap 14 10 - 20 mmol/L 06/30/2024 11:13 AM [facility] POC BUN 30(H) 8 - 26 mg/dL 06/30/2024 11:13 AM [facility] POC Creatinine 1.1 0.6 - 1.3 mg/dL 06/30/2024 11:13 AM [facility] Comment:Medications, especia lly hydroxyurea or supplements, such as ascorbate, can interfere with test results causing a falsely and significantly higher result than expected. If a problem is suspected with a patient's result, a sample should be sent to the laboratory for confirmatory testing. POC I Glu 182(H) 70 - 99 mg/dL 06/30/2024 11:13 AM [facility] Comment:Medications, especia lly hydroxyurea or supplements, such as ascorbate, can interfere with test results causing a falsely and significantly higher result than expected. If a problem is suspected with a patient's result, a sample should be sent to the laboratory for confirmatory testing. POC Ionized Calcium 1.26 1.12 - 1.32 mmol/L 06/30/2024 11:13 AM [facility] POC Hct 39.0 38.0 - 51.0 % 06/30/2024 11:13 AM [facility] POC Hgb 13.3 12.0 - 17.0 gm/dL 06/30/2024 11:13 AM [facility] Comment:Hematocrit values fr om the iSTAT are determined conductometrically, which may be affected by WBC count, levels of total protein, lipids, or sodium. The hemoglobin result is calculated based on the corresponding measured hematocrit and assumes a normal MCHC. If there is a discrepancy between the results from iSTAT and conventional laboratory method, the result from conventional method should be considered the accurate standard. POC Sample Type Venous 11:13 AM [facility] POC eGFR 77 >=60 mL/min/1.7 3 sq. m 06/30/2024 11:13 AM [facility] Comment: The eGFRcr is calculated with the [...] G1 nor G2 fulfill criteria for CKD. Blood 06/30/2024 11:1 0 AM PILE OPERATOR 06/30/2024 11:13 AM PILE OPERATOR Narrative [facility] - 06/30/2024 11:13 AM PILE OPERATOR Method description: The i-STAT is an analyzer used for in vitro quantification of various analytes in whole blood. The device uses a single disposable cartridge which contains microfabricated sensors, a calibration solution, fluidics system, and a waste chamber. Each test cartridge contains chemically sensitive biosensors on a silicon chip that are configured to perform specific tests. The microfabricated sensors measure analyte concentration by an electrochemical assay. us Brandon Galo MD POCT ORDERABLES - DE VICE Final Result [facility] Unless otherwise noted, all lab tests performed by: Division of Pathology and Laboratory Medicine [address] [place] [id number] * EKG, 12-Lead (Scheduled) (06/29/2024) Only the most recent of3 resultswithin the time period is included. Mary Kay Santamaria TERRITORY REPRESENTATIVE ECG ORDERABLES Final R esult Performing Organization Address [facility] Co de Phone Number [facility] * PETCT F18 FDG (Fluorodeoxyglucose) with contrast (06/20/2024 12:42 PM PILE OPERATOR) Anatomical Region Laterality Modality Whole Body Positron Emissio n Tomography (PET) 06/20/2024 3:10 PM PILE OPERATOR Impressions 06/20/2024 4:38 PM PILE OPERATOR Biopsy-proven malignancy in the region of the gastroesophageal junction and antrum of the stomach are not FDG avid. There are no enlarged or FDG avid lymph nodes suspicious for metastases. There is a new small left lung nodule of uncertain etiology. There are no FDG avid distant-metastases in the abdomen or pelvis. ACTIONABLE ITEMS/RECOMMENDATIONS*: None. *An Actionable Finding is a finding that may be unrelated to the original reason for imaging but potentially actionable, meaning further investigation may be necessary. The Actionable Findings Vigilance Unit (AFVU) assists medical providers with responding to additional radiologic findings that are unexpected and potentially actionable. Narrative 06/20/2024 4:38 PM PILE OPERATOR FULL RESULT: Examination: 18F-FDG-PET/CT with contrast, 06/20/2024 12:42 PM Clinical History: Adenocarcinoma, NOS of stomach, NOS [C16.9 (ICD-10-CM)]; Malignant neoplasm of overlapping sites of esophagus [C15.8 (ICD-10-CM)]. Indication: To determine response to therapy and subsequent treatment strategy. Comparison: CT of the abdomen 04/01/[address] 04/01/2024. Technique: Following intravenous administration of 11 mCi F-18 fluorodeoxyglucose (FDG), a CT attenuation corrected PET scan was obtained from the vertex to the thighs. The CT component of the study was performed with intravenous contrast. Findings: Chest: 1. Circumferential thickening the wall of the esophagus in the region of the gastroesophageal junction extending into the cardia biopsy-proven to be a primary malignancy is unchanged and has low-grade FDG uptake (SUV max 2.3). In addition, focal soft tissue in the wall of the antrum consistent with biopsy-proven primary malignancy is unchanged and has low-grade FDG uptake (SUV max 2.7). 2. There are no enlarged or FDG avid thoracic lymph nodes. 3. There has been interval development of a 5 mm soft tissue nodule in the left lower lobe (image 192, series 4). There is a diffusely calcified benign left lung nodule. 4. There is coronary artery calcification consistent with sequelae of atherosclerosis. Abdomen and Pelvis: 5. There are no enlarged or FDG avid lymph nodes in the abdomen or pelvis. 6. The liver and spleen are normal. 7. A 1.5 cm left adrenal nodule is unchanged in size, not FDG avid and consistent with a benign etiology. The right adrenal is normal. Renal excretion of contrast is symmetric. There are no renal lesions suspicious for malignancy. There are postsurgical findings consistent with sequelae of a partial left nephrectomy. The pancreas is normal. Soft Tissues and Musculoskeletal: 8. There are no FDG avid osseous metastases. Head and Neck: 9. There are no FDG avid brain metastases. However, PET/CT imaging is not the optimal imaging modality for the detection of small brain metastases. Procedure Note Clemente Christine MD - 06/20/2024 FULL RESULT: Examination: 18F-FDG-PET/CT with contrast, 06/20/2024 12:42 PM Clinical History: Adenocarcinoma, NOS of stomach, NOS [C16.9 (ICD-10-CM)];Malignant neoplasm of overlapping sites of esophagus [C15.8(ICD-10-CM)]. Indication: To determine response to therapy and subsequent treatmentstrategy. Comparison: CT of the abdomen 04/01/[address] 04/01/2024. Technique: Following intravenous administration of 11 mCi F-18fluorodeoxyglucose (FDG), a CT attenuation corrected PET scan was obtainedfrom the vertex to the thighs. The CT component of the study was performedwith intravenous contrast. Findings: Chest: 1. Circumferential thickening the wall of the esophagus in the region ofthe gastroesophageal junction extending into the cardia biopsy-proven rock a primary malignancy is unchanged and has low-grade FDG uptake (SUV max2.3). In addition, focal soft tissue in the wall of the antrum consistentwith biopsy-proven primary malignancy is unchanged and has low-grade FDGuptake (SUV max 2.7). 2. There are no enlarged or FDG avid thoracic lymph nodes. 3. There has been interval development of a 5 mm soft tissue nodule in theleft lower lobe (image 192, series 4). There is a diffusely calcifiedbenign left lung nodule. 4. There is coronary artery calcification consistent with sequelae ofatherosclerosis. Abdomen and Pelvis: 5. There are no enlarged or FDG avid lymph nodes in the abdomen orpelvis. 6. The liver and spleen are normal. 7. A 1.5 cm left adrenal nodule is unchanged in size, not FDG avid andconsistent with a benign etiology. The right adrenal is normal. Renalexcretion of contrast is symmetric. There are no renal lesions suspiciousfor malignancy. There are postsurgical findings consistent with sequelaeof a partial left nephrectomy. The pancreas is normal. Soft Tissues and Musculoskeletal: 8. There are no FDG avid osseous metastases. Head and Neck: 9. There are no FDG avid brain metastases. However, PET/CT imaging is notthe optimal imaging modality for the detection of small brainmetastases. IMPRESSION: Biopsy-proven malignancy in the region of the gastroesophageal junctionand antrum of the stomach are not FDG avid. There are no enlarged or FDGavid lymph nodes suspicious for metastases. There is a new small left lungnodule of uncertain etiology. There are no FDG avid distant-metastases inthe abdomen or pelvis. ACTIONABLE ITEMS/RECOMMENDATIONS*: None. *An Actionable Finding is a finding that may be unrelated to the originalreason for imaging but potentially actionable, meaning furtherinvestigation may be necessary. The Actionable Findings Vigilance Unit(AFVU) assists medical providers with responding to additional radiologicfindings that are unexpected and potentially actionable. Gillian Gomez PA-C IM PETCT ORDERABLES Final Result * (ABNORMAL) .CBC (06/20/2024 10:35 AM [facility]) Only the most recent of10 resultswithin the time period is included. White Blood Cell 5.0 4.1 - 10.5 K/uL 06/20/2024 10:46 AM [facility] Red Blood Cell 4.59 4.30 - 6.04 M/uL 06/20/2024 10:46 AM [facility] Hemoglobin 11.6(L) 13.3 - 17.4 g/dL 06/20/2024 10:46 AM [facility] Hematocrit 36.8(L) 39.5 - 51.8 % 06/20/2024 10:46 AM [facility] Mean Cell Volume 80(L) 82 - 99 fL 06/20/2024 10:46 AM [facility] Mean Cell Hemoglobin 25.3(L) 26.6 - 33.2 pg 06/20/2024 10:46 AM [facility] Mean Cell Hemoglobin Concentration 31.5 31.1 - 35.2 g/dL 06/20/2024 10:46 AM [facility] RDW-SD 45.1 37.5 - 49.7 fL 06/20/2024 10:46 AM [facility] Red Cell Diameter Width 15.9(H) 11.6 - 15.5 % 06/20/2024 10:46 AM [facility] Platelet 233 160 - 397 K/uL 06/20/2024 10:46 AM [facility] Mean Platelet Volume 9.2 9.1 - 12.6 fL 06/20/2024 10:46 AM [facility] INRBC 0.0 0.0 - 0.1 /100 WBC 06/20/2024 10:46 AM [facility] Comment: The INRBC (instrument NRBC) value reflects the enumeration of nucleated red blood cells contained in a 200uL sample of whole blood analyzed by the instrument. This value may differ from the NRBC value reported in a manual differential, which is based on a 100 cell differential. Neutrophil % 50.6 43.2 - 72.7 % 06/20/2024 10:46 AM [facility] Lymphocyte % 27.7 16.8 - 46.2 % 06/20/2024 10:46 AM [facility] Monocyte % 16.1(H) 5.1 - 12.5 % 06/20/2024 10:46 AM [facility] Eosinophil % 3.4 0.4 - 6.3 % 06/20/2024 10:46 AM [facility] Basophil % 1.2 0.2 - 1.4 % 06/20/2024 10:46 AM [facility] IGRE % 1.0 0.1 - 1.5 % 06/20/2024 10:46 AM [facility] Comment:The IGRE% includes M etamyelocytes, Myelocytes and Promyelocytes. Neutrophil Abs 2.54 1.95 - 7.25 K/uL 06/20/2024 10:46 AM [facility] Lymphocyte Abs 1.39 1.01 - 3.24 K/uL 06/20/2024 10:46 AM [facility] Monocyte Abs 0.81 0.24 - 0.85 K/uL 06/20/2024 10:46 AM [facility] Eosinophil Abs 0.17 0.02 - 0.50 K/uL 06/20/2024 10:46 AM [facility] Basophil Abs 0.06 0.02 - 0.09 K/uL 06/20/2024 10:46 AM [facility] IG Abs 0.05 0.01 - 0.12 K/uL 06/20/2024 10:46 AM [facility] Blood Peripheral blood specimen / Unknown Venipuncture / Unknown 06/20/2024 10:35 AM [facility] 06/20/2024 10:43 AM [facility] Gillian Gomez PA-C LAB BLOOD ORDERABLES Final Result [facility] Unless otherwise noted, all lab tests performed by: Division of Pathology and Laboratory Medicine [facility] [place] [address] * (ABNORMAL) CMP (06/20/2024 10:35 AM [facility]) Only the most recent of9 resultswithin the time period is included. Bilirubin Total <0.3 0.0 - 1.2 mg/dL 06/20/2024 11:22 AM [facility] Comment:Indocyanine Green (I CG) may cause falsely elevated bilirubin results. Total and direct bilirubin must not be measured from samples containing indocyanine green. False elevation of total bilirubin can be seen in patients with IgG concentrations above 28 g/L. eGFR 96 >=60 mL/min/1. 73 sq. m 06/20/2024 11:22 AM [facility] Comment: The eGFRcr is calculated with the [...] Tot Protein 7.3 6.4 - 8.3 gm/dL 06/20/2024 11:22 AM [facility] Calcium Level Total 8.9 8.2 - 10.2 mg/dL 06/20/2024 11:22 AM [facility] Alkaline Phosphatase 146(H) 40 - 129 U/L 06/20/2024 11:22 AM [facility] Albumin Level 3.4(L) 3.5 - 5.2 gm/dL 06/20/2024 11:22 AM [facility] AST 37 <=40 U/L 06/20/2024 11:22 AM [facility] ALT 48(H) <=41 U/L 06/20/2024 11:22 AM [facility] Sodium Level 134(L) 136 - 145 mmol/L 06/20/2024 11:22 AM [facility] Potassium Level 5.2(H) 3.4 - 4.5 mmol/L 06/20/2024 11:22 AM [facility] Chloride 99 98 - 107 mmol/L 06/20/2024 11:22 AM [facility] CO2 29 22 - 29 mmol/L 06/20/2024 11:22 AM [facility] Anion Gap 6 4 - 14 mmol/L 06/20/2024 11:22 AM [facility] Creatinine 0.91 0.67 - 1.17 mg/dL 06/20/2024 11:22 AM [facility] BUN 16 6 - 23 mg/dL 06/20/2024 11:22 AM [facility] Glucose Level 239(H) 70 - 99 mg/dL 06/20/2024 11:22 AM [facility] Comment: Effective 12/14/15, the glucose reference intervals have been updated based on [place] [employer] guidelines (Standards of Medical Care in Diabetes 2016. Diabetes Care 2016; 39: S13-S22). Fasting blood glucose: Normal: 70-99 mg/dL Impaired fasting glucose (increased risk for diabetes or pre-diabetes): 100-125 mg/dL Diabetes mellitus: >/=126 mg/dL Random blood glucose: Normal: 70-199 mg/dL Note: Random glucose >100 mg/dL is associated with increased risk for diabetes. Blood Peripheral blood specimen / Unknown Venipuncture / Unknown 06/20/2024 10:35 AM PILE OPERATOR 06/20/2024 10:43 AM [facility] us Gillian Gomez PA-C LAB BLOOD ORDERABLES Final Result [facility] Unless otherwise noted, all lab tests performed by: Division of Pathology and Laboratory Medicine [address] [place] [id number] * Phosphorus Level (06/20/2024 10:35 AM PILE OPERATOR) Only the most recent of5 resultswithin the time period is included. Phosphorus Level 2.8 2.5 - 4.5 mg/dL 06/20/2024 11:22 AM PILE OPERATOR [facility] Blood Peripheral blood specimen / Unknown Venipuncture / Unknown 06/20/2024 10:35 AM PILE OPERATOR 06/20/2024 10:43 AM PILE OPERATOR Gillian Gomez PA-C LAB BLOOD ORDERABLES Final Result Performing Organization Address City/[facility] de Phone Number [facility] Unless otherwise noted, all lab tests performed by: Division of Pathology and Laboratory Medicine [address] [place] [id number] * Magnesium Level (06/20/2024 10:35 AM PILE OPERATOR) Only the most recent of5 resultswithin the time period is included. Magnesium Level 1.8 1.6 - 2.6 mg/dL 06/20/2024 11:22 AM PILE OPERATOR [facility] Blood Peripheral blood specimen / Unknown Venipuncture / Unknown 06/20/2024 10:35 AM PILE OPERATOR 06/20/2024 10:43 AM PILE OPERATOR Gillian Gomez PA-C LAB BLOOD ORDERABLES Final Result [facility] Unless otherwise noted, all lab tests performed by: Division of Pathology and Laboratory Medicine [address] [place] [id number] * LDH (06/20/2024 10:35 AM PILE OPERATOR) Only the most recent of5 resultswithin the time period is included. LDH 187 135 - 225 U/L 06/20/2024 11:22 AM PILE OPERATOR [facility] Blood Peripheral blood specimen / Unknown Venipuncture / Unknown 06/20/2024 10:35 AM PILE OPERATOR 06/20/2024 10:43 AM PILE OPERATOR Narrative [facility] - 06/20/2024 11:22 AM PILE OPERATOR Results greater than 1651 U/L may not be reliable due to matrix effect with extended dilution as it exceeds the wool buyer's recommended limit. Caution should be exercised when interpreting such values and done in conjunction with clinical context. Gillian Gomez PA-C LAB BLOOD ORDERABLES Final Result Performing Organization Address City/[facility] Co de Phone Number [facility] Unless otherwise noted, all lab tests performed by: Division of Pathology and Laboratory Medicine [address] [place] [phone] * (ABNORMAL) CEA (06/20/2024 10:35 AM PILE OPERATOR) Only the most recent of4 resultswithin the time period is included. Carcinoembryonic Antigen 3.9(H) <=3.8 ng/mL 06/20/2024 11:22 AM PILE OPERATOR [facility] Blood Peripheral blood specimen / Unknown Venipuncture / Unknown 06/20/2024 10:35 AM PILE OPERATOR 06/20/2024 10:43 AM PILE OPERATOR Narrative [facility] - 06/20/2024 11:22 AM [facility] Reference Ranges (age 20-69 years): Non-smoker: <= 3.8 ng/mL Smoker: <= 5.5 ng/mL This test is measured by electrochemiluminescence immunoassay on [employer]el[employer] Nikki immunoassay analyzers. Results obtained in different methods are not interchangeable. Gillian Gomez PA-C LAB BLOOD ORDERABLES Final Result Performing Organization Address [facility] Co de Phone Number [facility] Unless otherwise noted, all lab tests performed by: Division of Pathology and Laboratory Medicine [address] [place] [id number] * Transferrin with TIBC (06/01/2024 11:10 AM PILE OPERATOR) Transferrin 211 200 - 360 mg/dL 06/01/2024 12:15 PM PILE OPERATOR [facility] Total Iron Binding Capacity 295 250 - 450 mcg/dL 06/01/2024 12:15 PM PILE OPERATOR [facility] Blood Peripheral blood specimen / Unknown Venipuncture / Unknown 06/01/2024 11:10 AM PILE OPERATOR 06/01/2024 11:23 AM PILE OPERATOR Marianela Hutchinson MD LAB BLOOD ORDERABLES Final Re sult Performing Organization Address City/[facility]/ZIP Co de Phone Number [facility] Unless otherwise noted, all lab tests performed by: Division of Pathology and Laboratory Medicine [address] [place] [id number] * (ABNORMAL) Iron Level (06/01/2024 11:10 AM PILE OPERATOR) Iron Level 38(L) 59 - 158 mcg/dL 06/01/2024 12:15 PM PILE OPERATOR [facility] Is patient fasting? No 06/01/2024 12:15 PM PILE OPERATOR [facility] Blood Peripheral blood specimen / Unknown Venipuncture / Unknown 06/01/2024 11:10 AM PILE OPERATOR 06/01/2024 11:23 AM PILE OPERATOR Marianlea Hutchinson MD LAB BLOOD ORDERABLES Final Re sult Performing Organization Address [facility] de Phone Number [facility] Unless otherwise noted, all lab tests performed by: Division of Pathology and Laboratory Medicine [address] [place] [id number] [place] [address] Unless otherwise noted, all lab tests performed by: Division of Pathology and Laboratory Medicine [address] [place] [id number] * Ferritin Level (06/01/2024 11:10 AM PILE OPERATOR) Ferritin Level 59 30 - 400 ng/mL 06/01/2024 12:15 PM PILE OPERATOR [facility] Blood Peripheral blood specimen / Unknown Venipuncture / Unknown 06/01/2024 11:10 AM PILE OPERATOR 06/01/2024 11:23 AM PILE OPERATOR Narrative [facility] - 06/01/2024 12:15 PM PILE OPERATOR Reference range established for age 20 - 60 years Marinaela Hutchinson MD LAB BLOOD ORDERABLES Final Re sult Performing Organization Address City/[facility]/ZIP Co de Phone Number [facility] Unless otherwise noted, all lab tests performed by: Division of Pathology and Laboratory Medicine [address] [place] [address] * Research Protocol [id number] (05/04/2024 11:34 AM PILE OPERATOR) Research Protocol Specimen Specimen Collected, Ready for Pickup. 05/04/2024 1:01 PM PILE OPERATOR [facility] Blood Peripheral blood specimen / Unknown Venipuncture / Unknown 05/04/2024 11:34 AM PILE OPERATOR 05/04/2024 11:43 AM PILE OPERATOR Marianela Hutchisnon MD RESEARCH LAB Z CODES Final Re sult Performing Organization Address [facility] Co de Phone Number [facility] Unless otherwise noted, all lab tests performed by: Division of Pathology and Laboratory Medicine [address] [place] [address] * Tip Verification Central Vascular Access Device (04/15/2024 3:50 PM PILE OPERATOR) Narrative John Fong MD - 04/15/2024 3:50 PM PILE OPERATOR John Fong MD 04/15/2024 3:50 PM Central Vascular Access Device Tip Verification Performed by: John Fong MD Authorized by: John Fong MD CVAD Properties Date device placed: 04/15/2024 Device placement location: [facility] Catheter Type: Implanted venous port Catheter lumen: Single lumen Vein location: Internal jugular vein Laterality: Right Tip in good position and cleared for infusion John Fong MD IV THERAPY ORDERABLES Final Re sult * XR Chest 1 View Portable (04/15/2024 2:45 PM PILE OPERATOR) Anatomical Region Laterality Modality Chest Digital Radiogra phy 04/15/2024 2:50 PM PILE OPERATOR Impressions 04/15/2024 2:53 PM PILE OPERATOR 1. Right infusion port catheter terminates over [...] and potentially actionable. Narrative 04/15/2024 2:53 PM PILE OPERATOR FULL RESULT: Examination: XR CHEST 1 VW [...] unexpected and potentially actionable. John Fong MD IMG DIAGNOSTIC IMAGING ORDERAB LES Final Result * Cytology Non-Brake Drum Molder Interpretation (04/15/2024 12:33 PM PILE OPERATOR) Gross Description 4 Pap Stain Slides 750 ml. clear yellow fluid Specimen concentrated by cytocentrifugation technique 4 4:07 PM PILE OPERATOR [facility] Major Classification [facility]/benign 4 4:07 PM PILE OPERATOR [facility] Diagnosis Peritoneal washing: No metastatic carcinoma identified Reactive mesothelial cells and histiocytes 4 4:07 PM PILE OPERATOR [facility] Retained/Biomark er Testing SR:4S 4 4:07 PM PILE OPERATOR [facility] Informational Points Some tests reported here may have been developed and performance characteristics determined by [facility]. These tests have not been specifically cleared or approved by the U.S. Food and Drug Administration. 4 4:07 PM PILE OPERATOR [facility] Washing (Peritoneal Washing) 04/15/2024 12:33 PM PILE OPERATOR 04/15/2024 1:10 PM PILE OPERATOR John Fong MD LAB CYTOLOGY ORDERABLES Final Result [facility] [place] [address], * Pathology Surgical Interpretation (04/15/2024 12:13 PM PILE OPERATOR) Only the most recent of2 resultswithin the time period is included. Submitted Clinical History Adenocarcinoma of stomach [C16.9] 04/20/2024 8:13 PM PILE OPERATOR [facility] Diagnosis A. Falciform ligament, resection: Fibroadipose tissue, no tumor present 04/20/2024 8:13 PM PILE OPERATOR [facility] Gross Description A: Falciform ligament, falciorm ligament biopsy....or 16: Consists of a fragment of castillo-yellow, lobulated fat (0.8 x 0.6 x 0.5 cm) entirely submitted in cassette A1. EF 04/20/2024 8:13 PM PILE OPERATOR [facility] Disclaimer "Some tests reported here may have been developed and performance characteristics determined by [facility]. These tests have not been specifically cleared or approved by the U.S. Food and Drug Administration. If applicable, controls were reviewed and showed appropriate reactivity." 04/20/2024 8:13 PM PILE OPERATOR [facility] Tissue (Falciform Ligament) 04/15/2024 12:13 PM PILE OPERATOR 04/15/2024 1:18 PM PILE OPERATOR us John Fong MD LAB PATHOLOGY ORDERABLES Final Result [facility] [address] [place] [id number], [place] * [place] Central Venous Place Exchange (04/15/2024 11:40 AM PILE OPERATOR) Narrative Systemgenerated, Documentation - 04/15/2024 11:40 AM PILE OPERATOR This procedure requires no interpretation from the radiologist. us John Fong MD IMG FLUOROSCOPY ORDERABLES Fin al Result * CT Abdomen Pelvis with IV Contrast (04/12/2024 11:18 AM PILE OPERATOR) Anatomical Region Laterality Modality Abdomen, Pelvis Computed Tomogra phy 04/12/2024 11:5 2 AM PILE OPERATOR Impressions 04/12/2024 12:11 PM PILE OPERATOR Wall thickening and slight mucosal irregularity of [...] and potentially actionable. Narrative 04/12/2024 12:11 PM PILE OPERATOR FULL RESULT: Examination: CT ABDOMEN PELVIS W [...] Result * Fractionated Bilirubin (04/12/2024 9:04 AM PILE OPERATOR) Bilirubin Direct 04/12/20 9:47 AM PILE OPERATOR [facility] Comment: Direct and indirect bilirubin will not be reported when Total bilirubin result is <0.3 mg/dL Indocyanine Green (ICG) may cause falsely elevated bilirubin results. Total and direct bilirubin must not be measured from samples containing indocyanine green. Bilirubin Indirect 2023 9:47 AM [facility] Comment:Direct and indirect bilirubin will not be reported when Total bilirubin result is <0.3 mg/dL Bilirubin Total <0.3 0.0 - 1.2 mg/dL 04/12/2024 9:47 AM [facility] Comment: Direct and indirect bilirubin will not [...] Unknown Venipuncture / Unknown 04/12/2024 9:04 AM PILE OPERATOR 04/12/2024 9:08 AM PILE OPERATOR us Nghia Zhu MD LAB BLOOD ORDERABLES Final Resu lt [facility] Unless otherwise noted, all lab tests performed by: Division of Pathology and Laboratory Medicine [address] [place] [id number] * (ABNORMAL) Lipase (04/12/2024 9:04 AM PILE OPERATOR) Lipase Level 311(H) 13 - 60 U/L 04/12/2024 10:09 AM PILE OPERATOR [facility] Blood Peripheral blood specimen / Unknown Venipuncture / Unknown 04/12/2024 9:04 AM PILE OPERATOR 04/12/2024 9:08 AM PILE OPERATOR Narrative [facility] - 04/12/2024 10:09 AM PILE OPERATOR Reference range established based on adult population us Nghia Zhu MD LAB BLOOD ORDERABLES Final Resu lt Performing Organization Address [facility] Co de Phone Number [facility] Unless otherwise noted, all lab tests performed by: Division of Pathology and Laboratory Medicine [address] [place] [id number] * (ABNORMAL) Amylase (04/12/2024 9:04 AM PILE OPERATOR) Amylase Level 171(H) 28 - 100 U/L 04/12/2024 9:47 AM PILE OPERATOR [facility] Blood Peripheral blood specimen / Unknown Venipuncture / Unknown 04/12/2024 9:04 AM PILE OPERATOR 04/12/2024 9:08 AM PILE OPERATOR Nghia Zhu MD LAB BLOOD ORDERABLES Final Resu lt Performing Organization Address [facility] de Phone Number [facility] Unless otherwise noted, all lab tests performed by: Division of Pathology and Laboratory Medicine [address] [place] [id number] * TSH (04/09/2024 11:09 AM PILE OPERATOR) Only the most recent of2 resultswithin the time period is included. Thyroid Stimulating Hormone 1.53 0.27 - 4.20 mcunit/mL 04/09/2024 12:23 PM PILE OPERATOR [facility] Blood Peripheral blood specimen / Unknown Venipuncture / Unknown 04/09/2024 11:09 AM PILE OPERATOR 04/09/2024 11:19 AM PILE OPERATOR Ceci Nicholson MD LAB BLOOD ORDERABLES Final Resu lt Performing Organization Address [facility] Co de Phone Number [facility] Unless otherwise noted, all lab tests performed by: Division of Pathology and Laboratory Medicine [address] [place] [id number] * (ABNORMAL) Hemoglobin A1c (04/09/2024 11:09 AM PILE OPERATOR) Only the most recent of3 resultswithin the time period is included. Hemoglobin A1c 7.0(H) 4.3 - 5.6 % 04/09/2024 12:14 PM PILE OPERATOR [facility] Blood Peripheral blood specimen / Unknown Venipuncture / Unknown 04/09/2024 11:09 AM PILE OPERATOR 04/09/2024 11:19 AM PILE OPERATOR Narrative [facility] - 04/09/2024 12:14 PM PILE OPERATOR HbA1c values >=6.5% are diagnostic of diabetes mellitus. Diagnosis should be confirmed by repeat testing. Therapeutic Action suggested: >8.0% HbA1c; Goal of therapy: <7.0% HbA1c Ceci Nicholson MD LAB BLOOD ORDERABLES Final Resu lt [facility] Unless otherwise noted, all lab tests performed by: Division of Pathology and Laboratory Medicine [address] [place] [id number] * Pathology Outside Interpretation (04/02/2024) Materials Received Accession#, Stained, Block, Unstained Collected Received A. [id number], 20 SS, 0 BLOCKS, 0 USS 04/02/2024 04/22/2024 04/22/2024 5:36 PM PILE OPERATOR [facility] Diagnosis Outside ([id number], 20 SS, 0 BLOCKS, 0 USS, collected [...] FEATURES. See comment. CLEMENTE/ISAURO 04/22/2024 5:36 PM PILE OPERATOR [facility] Comment Part A. There is no evidence of malignancy on H&E and immunohistochemical stain for Cytokeratin AE1/AE3. Of note, the biopsy may not be training representative of the entire lesion. Please correlate [...] immunohistochemistry: Negative (Score: 0) 04/22/2024 5:36 PM PILE OPERATOR [facility] Biomarker Block(s) Block for biomarker testing: C1 Normal block: N/A 04/22/2024 5:36 PM PILE OPERATOR [facility] Disclaimer "Some tests reported here may have been developed and performance characteristics determined by [facility]. These tests have not been specifically cleared or approved by the U.S. Food and Drug Administration. If applicable, controls were reviewed and showed appropriate reactivity." 04/22/2024 5:36 PM PILE OPERATOR [facility] Tissue 04/02/2024 04/22/2024 6:4 0 AM PILE OPERATOR Sybil Edmonds MD LAB PATHOLOGY ORDERABLES Final R esult [facility] [address] [address], [place] * OSI CT Abdomen and Pelvis (04/01/2024 8:21 AM PILE OPERATOR) Only the most recent of3 resultswithin the time period is included. Narrative Systemgenerated, Documentation - 04/27/2024 8:22 AM PILE OPERATOR Study acquired at another institution. For comparison only. No [facility] originated interpretation requested or available. [facility] Regan Zhu DO IMG OUTSIDE IMAGE ORDERAB LES Final Result * OSI CT CHEST ABDOMEN PELVIS (03/23/2024 7:37 PM PILE OPERATOR) Narrative Systemgenerated, Documentation - 04/09/2024 7:37 PM PILE OPERATOR Study acquired at another institution. For comparison only. No [facility] originated interpretation requested or available. us Margoth Souza MD IMG OUTSIDE IMAGE ORDERABLES Fin al Result * OSI Chest (03/23/2024 7:37 PM PILE OPERATOR) Only the most recent of4 resultswithin the time period is included. Narrative Systemgenerated, Documentation - 04/09/2024 7:37 PM PILE OPERATOR Study acquired at another institution. For comparison only. No [facility] originated interpretation requested or available. Margoth Souza MD IMG OUTSIDE IMAGE ORDERABLES Fin al Result * OSI CT Chest (03/22/2024 8:21 AM PILE OPERATOR) Narrative Systemgenerated, Documentation - 04/27/2024 8:21 AM PILE OPERATOR Study acquired at another institution. For comparison only. No [facility] originated interpretation requested or available. us [facility] Regan Zhu DO IMG OUTSIDE IMAGE ORDERAB LES Final Result * (ABNORMAL) Basic Metabolic Panel- Total Calcium (01/03/2024 2:59 PM CDT) Only the most recent of7 resultswithin the time period is included. eGFR 71 >=60 mL/min/1. 73 sq. m 01/03/2024 3:44 PM CDT [facility] Comment: The eGFRcr is calculated with [...] - 10.2 mg/dL 01/03/2024 3:44 PM CDT [facility] Sodium Level 139 136 - 145 mmol/L 01/03/2024 3:44 PM CDT [facility] Potassium Level 3.9 3.4 - 4.5 mmol/L 01/03/2024 3:44 PM CDT [facility] Chloride 103 98 - 107 mmol/L 01/03/2024 3:44 PM CDT [facility] CO2 28 22 - 29 mmol/L 01/03/2024 3:44 PM CDT [facility] Anion Gap 8 4 - 14 mmol/L 01/03/2024 3:44 PM CDT [facility] Creatinine 1.18(H) 0.67 - 1.17 mg/dL 01/03/2024 3:44 PM CDT [facility] BUN 15 6 - 23 mg/dL 01/03/2024 3:44 PM CDT [facility] Glucose Level 137(H) 70 - 99 mg/dL 01/03/2024 3:44 PM CDT [facility] Comment: Effective 12/14/15, the glucose reference intervals have been updated based on [place] [employer] guidelines (Standards of Medical Care [...] 01/03/2024 3:02 PM CDT us Alicia Mcmanus TERRITORY REPRESENTATIVE LAB BLOOD ORDERABLES Final Result [facility] Unless otherwise noted, all lab tests performed by: Division of Pathology and Laboratory Medicine [address] [address] * Zinc Transporter 8 Ab (01/03/2024 4:22 AM CDT) Zinc T8 AB <15.0 <15.0 U/mL 01/15/2024 11:18 AM CDT [facility] Comment: ADDITIONAL INFORMATION This test has been modified from the wool buyer's instructions. Its performance characteristics were determined by [facility] in a manner consistent with CLIA requirements. This test has not been cleared or approved by the U.S. Food and Drug Administration. Test Performed by: [place] [address] Principal Scientist: Mary Jane Topete Ph.D.; CLIA# [id number] Blood Peripheral blood specimen / Unknown Venipuncture / Unknown 01/03/2024 4:22 AM CDT 01/03/2024 4:55 AM CDT Alicia Mcmanus APRN LAB BLOOD ORDERABLES Final Result [facility] * Islet Antigen 2 (IA-2) Antibody (01/03/2024 4:22 AM CDT) IA-2 Antibody 0.00 <=0.02 nmol/L 01/07/2024 12:20 AM CDT [facility] Comment: ADDITIONAL INFORMATION This test was developed and its performance characteristics determined by [facility] in a manner consistent with CLIA requirements. This test has not been cleared or approved by the U.S. Food and Drug Administration. Test Performed by: [facility] - [address] [address] Principal Scientist: Mary Jane Topete Ph.D.; CLIA# [id number] Blood Peripheral blood specimen / Unknown Venipuncture / Unknown 01/03/2024 4:22 AM CDT 01/03/2024 4:55 AM CDT Alicia Mcmanus TERRITORY REPRESENTATIVE LAB BLOOD ORDERABLES Final Result Performing Organization Address [facility] de Phone Number [facility] * GREG Ab Assay (01/03/2024 4:22 AM CDT) [id number] Ab-Maxwell 0.00 <=0.02 nmol/L 01/07/2024 12:01 AM CDT [facility] Comment: ADDITIONAL INFORMATION This test was developed and its performance characteristics determined by [facility] in a manner consistent with CLIA requirements. This test has not been cleared or approved by the U.S. Food and Drug Administration. Test Performed by: [place] [address] Principal Scientist: Mary Jane Topete Ph.D.; CLIA# [id number] Blood Peripheral blood specimen / Unknown Venipuncture / Unknown 01/03/2024 4:22 AM CDT 01/03/2024 4:55 AM CDT Aliciabebeto Mcmanus APRN LAB BLOOD ORDERABLES Final Result Performing Organization Address [facility] de Phone Number [facility] * Insulin Ab (01/03/2024 4:22 AM CDT) Insulin Ab-Maxwell 0.00 0.00 - 0.02 nmol/L 01/06/2024 5:14 PM CDT [facility] Comment: ADDITIONAL INFORMATION This test was developed and its performance characteristics determined by [facility] in a manner consistent with CLIA requirements. This test has not been cleared or approved by the U.S. Food and Drug Administration. Test Performed by: [address] [address] Principal Scientist: Mary Jane Topete Ph.D.; CLIA# [id number] Blood Peripheral blood specimen / Unknown Venipuncture / Unknown 01/03/2024 4:22 AM CDT 01/03/2024 4:55 AM CDT Alicia Mcmanus APRN LAB BLOOD ORDERABLES Final Result [facility] * C Peptide (01/03/2024 4:22 AM CDT) Pathologist [facility] C-Peptide 2.12 1.10 - 4.40 ng/mL 01/03/2024 5:48 AM CDT [facility] Blood Peripheral blood specimen / Unknown Venipuncture / Unknown 01/03/2024 4:22 AM CDT 01/03/2024 4:55 AM CDT Alicia Mcmanus APRN LAB BLOOD ORDERABLES Final Result [facility] Unless otherwise noted, all lab tests performed by: Division of Pathology and Laboratory Medicine [address] [place] [id number] * (ABNORMAL) Hemogram (01/02/2024 7:20 PM CDT) White Blood Cell 13.8(H) 4.1 - 10.5 K/uL 01/02/2024 7:33 PM CDT [facility] Red Blood Cell 4.74 4.30 - 6.04 M/uL 01/02/2024 7:33 PM CDT [facility] Hemoglobin 12.2(L) 13.3 - 17.4 g/dL 01/02/2024 7:33 PM CDT [facility] Hematocrit 38.6(L) 39.5 - 51.8 % 01/02/2024 7:33 PM CDT [facility] Mean Cell Volume 81(L) 82 - 99 fL 01/02/2024 7:33 PM CDT [facility] Mean Cell Hemoglobin 25.7(L) 26.6 - 33.2 pg 01/02/2024 7:33 PM CDT [facility] Mean Cell Hemoglobin Concentration 31.6 31.1 - 35.2 g/dL 01/02/2024 7:33 PM CDT [facility] RDW-SD 39.1 37.5 - 49.7 fL 01/02/2024 7:33 PM CDT [facility] Red Cell Diameter Width 13.1 11.6 - 15.5 % 01/02/2024 7:33 PM CDT [facility] Platelet 291 160 - 397 K/uL 01/02/2024 7:33 PM CDT [facility] Mean Platelet Volume 9.7 9.1 - 12.6 fL 01/02/2024 7:33 PM CDT [facility] INRBC 0.0 0.0 - 0.1 /100 WBC 01/02/2024 7:33 PM CDT [facility] Comment: The INRBC (instrument [...] PRICE LAB BLOOD ORDERABLES Final R esult [facility] Unless otherwise noted, all lab tests performed by: Division of Pathology and Laboratory Medicine [address] [place] [id number] * (ABNORMAL) Beta Hydroxy Quant (01/02/2024 7:20 PM CDT) Only the most recent of2 resultswithin the time period is included. Beta-Hydroxybuty rate 0.85(H) 0.02 - 0.27 mmol/L 01/02/2024 8:01 PM CDT [facility] Is patient fasting? No 01/02/2024 8:01 PM CDT [facility] Comment:A fasting specimen i s recommended and results obtained from non-fasting specimens should be interpreted with caution using reference ranges based on fasting status and in conjunction with clinical context. Blood Peripheral blood specimen / Unknown Venipuncture / Unknown 01/02/2024 7:20 PM CDT 01/02/2024 7:24 PM CDT Narrative [facility] - 01/02/2024 8:01 PM CDT Reference range based on fasting. us Alicia Mcmanus APRN LAB BLOOD ORDERABLES Final Result [facility] Unless otherwise noted, all lab tests performed by: Division of Pathology and Laboratory Medicine [address] [place] [id number] * (ABNORMAL) ABG+ (ABG, Na, K, Cl, Glu, Hgb, Hct, Lactate, Ion Ca) (01/02/2024 10:38 AM CDT) Only the most recent of2 resultswithin the time period is included. Sodium Arterial 140 136 - 146 mmol/L 01/02/2024 10:44 AM CDT [facility] Potassium Arterial 3.7 3.4 - 4.5 mmol/L 01/02/2024 10:44 AM T [facility] Chloride Arterial 103 98 - 106 mmol/L 01/02/2024 10:44 AM CDT [facility] Glucose Arterial 270(H) 70 - 105 mg/dL 01/02/2024 10:44 AM CDT [facility] Hgb Art 12.9(L) 13.5 - 17.5 g/dL 01/02/2024 10:44 AM CDT [facility] Hematocrit Arterial 40(L) 42 - 52 % 01/02/2024 10:44 AM CDT [facility] Lactate Arterial 1.0(H) 0.4 - 0.8 mmol/L 01/02/2024 10:44 AM CDT [facility] Calcium Ionized Arterial 1.14(L) 1.15 - 1.29 mmol/L 01/02/2024 10:44 AM T [facility] pH Arterial 7.35 7.35 - 7.45 01/02/2024 10:44 AM [facility] P CO2 Arterial 42.9 35.0 - 48.0 mmHg 01/02/2024 10:44 AM T [facility] P O2 Arterial 164(H) 83 - 108 mmHg 01/02/2024 10:44 AM T [facility] Bicarbonate Arterial 24 21 - 28 mmol/L 01/02/2024 10:44 AM T [facility] WB Anion Gap 13 7 - 16 mmol/L 01/02/2024 10:44 AM T [facility] Base Excess Arterial -2 -2 - 3 mmol/L 01/02/2024 10:44 AM [facility] Oxygen Saturation Arterial 99 95 - 99 % 01/02/2024 10:44 AM [facility] Oxygen FLOW Rate/ FiO2 01/02/2024 10:44 AM [facility] O2 Therapy 01/02/2024 10:44 AM [facility] Art Kirill Test Not Applicable (Arterial Line Draw) 01/02/2024 10:44 AM [facility] Blood Arterial blood specimen / Unknown Arterial Line / Unknown 01/02/2024 10:38 AM CDT 01/02/2024 10:41 AM CDT Narrative [facility] [facility] - 01/02/2024 10:[address] [facility] The ABL90 Flex Plus analyzer is an [...] MD LAB BLOOD ORDERABLES Final Re sult [facility] Unless otherwise noted, all lab tests performed by: Division of Pathology and Laboratory Medicine [address] [place] [id number] * Intraoperative Ultrasound - For Image Storage [...] EXP DATE 01/22/2024 12/23/2023 2:19 PM CDT [facility] - [facility]SF[facility]ION [facility] Blood Peripheral blood specimen / Unknown Venipuncture / Unknown 12/23/2023 8:51 AM CDT 12/23/2023 9:00 AM CDT Margoth Souza MD BLOOD BANK TEST ORDERABLES Final Result [facility] [address] [facility] [address] [place] [address] * Preop Updated Expiration (12/23/2023 8:51 AM CDT) PREOP STATUS 01/02/2024 11:33 PM CDT [facility] PREOP EXP DATE 01/02/2024 01/02/2024 11:33 PM CDT [facility] Blood Peripheral blood specimen / Unknown Venipuncture / Unknown 12/23/2023 8:51 AM CDT 12/23/2023 9:00 AM CDT us Margoth Souza MD BLOOD BANK TEST ORDERABLES Final Result [facility] [address] [facility] [address] [place] [address] * (ABNORMAL) Urinalysis with Reflex Culture (12/23/2023 8:51 AM CDT) Only the most recent of2 resultswithin the time period is included. Urine Appearance Clear Clear 12/23/19 9:33 AM CDT [facility] Urine Color Straw Colorless, Straw, Yellow, Dark Yellow, Straw-Yellow 12/23/2023 9:33 AM CDT [facility] Urine Specific [place] 1.032 1.003 - 1.035 12/23/2023 9:33 AM CDT [facility] Urine pH 6.0 5.0 - 8.0 12/23/2023 9:33 AM CDT [facility] Urine Glucose >=1000(A) Negative mg/dL 12/23/2023 9:33 AM CDT [facility] Urine Ketones Negative Negative mg/dL 12/23/2023 9:33 AM CDT [facility] Urine Blood Negative Negative 12/23/2023 9:33 AM CDT [facility] Urine Protein 30(A) Negative mg/dL 12/23/2023 9:33 AM CDT [facility] Urine Bilirubin Negative Negative 9:33 AM CDT [facility] Urine Urobilinogen Negative Negative 12/23/2023 9:33 AM CDT [facility] Urine Nitrite Negative Negative 12/23/2023 9:33 AM CDT [facility] Urine Leukocyte Esterase Negative Negative 12/23/2023 9:33 AM CDT [facility] Urine Mucous Not Seen Not Seen, Trace /HPF 12/23/2023 9:33 AM CDT [facility] Urine Bacteria Not Seen Not Seen /HPF 12/23/2023 9:33 AM CDT [facility] Urine Squamous Epithelial Cells OCC Not Seen, OCC, Rare /HPF 12/23/2023 9:33 AM CDT [facility] Urine WBC <1 <=2 /HPF 12/23/2023 9:33 AM CDT [facility] Urine RBC 1 <=2 /HPF 12/23/2023 9:33 AM CDT [facility] Urine Voided urine specimen / Unknown Non-blood Collection / Unknown 12/23/2023 8:51 AM CDT 12/23/2023 9:10 AM CDT Narrative [facility] - 12/23/2023 9:33 AM CDT Some reporting parameters within the Urinalysis test have changed due to the implementation of new instrumentation in the Main [place], allowing greater sensitivity of measurement. Urinalysis results reported by the [facility] using existing instrumentation, as well as Urinalysis testing performed manually or by back-up methodology at the main [place], will remain relatively unchanged. New reporting parameters and units will now be reported for all campuses. us Margoth Souza MD URINE ORDERABLES Final Result [facility] Unless otherwise noted, all lab tests performed by: Division of Pathology and Laboratory Medicine [address] [place] [id number] * 30-Day Pre-Op Type and Screen (12/23/2023 8:51 AM CDT) Only the most recent of2 resultswithin the time period is included. ABORh O POS 12/23/2023 8:45 AM CDT [facility] ABSC Negative 12/23/2023 8:45 AM CDT [facility] BB Criteria Met Criteria met 12/23/2023 8:45 AM CDT [facility] Historical Record Check Complete 12/23/2023 8:45 AM CDT [facility] Blood Peripheral blood specimen / Unknown Venipuncture / Unknown 12/23/2023 8:51 AM CDT 12/23/2023 9:00 AM CDT Margoth Souza MD BLOOD BANK TEST ORDERABLES Final Result [facility] [address] [place] [address] [place] [phone] * TMP Interpretation Exception PreOp Expiration (12/23/2023 8:51 AM CDT) Only the most recent of2 resultswithin the time period is included. TMP Exception 12/24/2023 10:47 AM CDT [facility] TMP Signature . 12/24/2023 10:47 AM CDT [facility] Blood Peripheral blood specimen / Unknown Venipuncture / Unknown 12/23/2023 8:51 AM CDT 12/23/2023 9:00 AM CDT Margoth Souza MD BLOOD BANK TEST ORDERABLES Final Result [facility] [address] [place] [address] [address] [place] [address] * ACTH (12/09/2023 9:45 AM CDT) Only the most recent of2 resultswithin the time period is included. ACTH 22 7 - 63 pg/mL 12/09/2023 12:19 PM CDT [facility] Blood Peripheral blood specimen / Unknown Venipuncture / Unknown 12/09/2023 9:45 AM CDT 12/09/2023 9:52 AM CDT Narrative [facility] - 12/09/2023 12:19 PM CDT Reference range established based on adult population (7 - 10am draws). No established reference values for p.m. draws. Results greater than 1826 pg/mL may not be reliable due to matrix effect with extended dilution as it exceeds the wool buyer's recommended limit. ACTH reference intervals are established for the morning hours from 7-10 am. Due to the circadian rhythm of ACTH levels in plasma, the sample collection time must be noted. Caution should be exercised when interpreting such values and done in conjunction with clinical context. LeahZora Del Castillo APRN LAB BLOOD ORDERABLES Final Result [facility] Unless otherwise noted, all lab tests performed by: Division of Pathology and Laboratory Medicine [address] [place] [address] * DHEA Sulfate (12/09/2023 9:45 AM CDT) Pathologist [facility] 81 20 - 299 mcg/dL 12/10/2023 12:10 PM CDT [facility] TIFF Comment: Test Performed by: [facility] [address] [place], [place] [id number] Principal Scientist: Mary Jane Topete Ph.D.; CLIA# [id number] Blood Peripheral blood specimen / Unknown Venipuncture / Unknown 12/09/2023 9:45 AM CDT 12/09/2023 9:[address] [facility] OrtaEvonne TERRITORY REPRESENTATIVE LAB BLOOD ORDERABLES Final Result [facility] TIFF * Cortisol, Total (12/09/2023 9:45 AM CDT) Only the most recent of4 resultswithin the time period is included. Cortisol 11.39 4.82 - 19.50 mcg/dL 12/09/2023 11:00 AM CDT [facility] Blood Peripheral blood specimen / Unknown Venipuncture / Unknown 12/09/2023 9:45 AM CDT 12/09/2023 9:55 AM CDT Narrative [facility] - 12/09/2023 11:00 AM CDT Cortisol [...] Afternoon (4-8 pm): 2.47 - 11.9 mcg/dL us LeahJeanZora OrtaJeanEvonne TERRITORY REPRESENTATIVE LAB BLOOD ORDERABLES Final Result [facility] Unless otherwise noted, all lab tests performed by: Division of Pathology and Laboratory Medicine [address] [place] [address] * IR CT GUIDED BIOPSY RENAL (10/03/2023 10:27 AM CDT) Anatomical Region Laterality Modality Abdomen/Pelvis, Organ (liver/spleen/kidney) Computed Tomography Narrative 10/04/2023 9:03 AM CDT Table formatting from the original result was not included. Date of Procedure: 10/03/23 Attending Physician: Kumar Comer MD Deck Engineer: None Pre Procedure Diagnosis: Renal mass Post [...] - 14.5 second(s) 10/03/2023 9:57 AM CDT [facility] International Normalization Ratio 0.98 0.87 - 1.12 10/03/2023 9:57 AM CDT [facility] Blood Peripheral blood specimen / Unknown Venipuncture / Unknown 10/03/2023 9:27 AM CDT 10/03/2023 9:28 AM CDT Conrado-Dannielle Ng PA-C LAB BLOOD ORDERABLES Final Result [facility] [address] [facility] [place] [address] * Type and Screen (10/03/2023 9:27 AM CDT) ABORh O POS 10/03/2023 9:17 AM CDT [facility] ABSC Negative 10/03/2023 9:17 AM CDT [facility] Clot Expiration 10/06/2023 23:59 10/03/2023 9:17 AM CDT [facility] Historical Record Check Complete 10/03/2023 9:17 AM CDT [facility] Blood Peripheral blood specimen / Unknown Venipuncture / Unknown 10/03/2023 9:27 AM CDT 10/03/2023 9:52 AM CDT us Conrado-Dannielle D Ho PA-C BLOOD BANK TEST ORDERABLES Final Result [facility] [address] [place] [address] * X-ray Chest 2 Views (09/19/2023 9:24 [...] unexpected and potentially actionable. Shazia Arriaza MD [facility] DIAGNOSTIC IMAGING ORD ERABLES Final Result * Metanephrines Fractionated (09/16/2023 4:24 PM CDT) Normetane Free-Maxwell 0.43 <0.90 nmol/L 09/19/2023 2:59 PM CDT [facility] Metanephr Free-Maxwell <0.20 <0.50 nmol/L 09/19/2023 2:59 PM CDT [facility] Comment: ADDITIONAL INFORMATION This test was developed and its performance characteristics determined by [facility] in a manner consistent with CLIA requirements. This test has not been cleared or approved by the U.S. Food and Drug Administration. Test Performed by: [facility] - [address] [address] Principal Scientist: Scot Skelton M.D. Ph.D.; CLIA# [id number] Blood Peripheral blood specimen / Unknown Venipuncture / Unknown 09/16/2023 4:24 PM CDT 09/16/2023 4:41 PM CDT Shazia Arriaza MD LAB BLOOD ORDERABLES Final Result Performing Organization Address City/[facility]/ZIP Co de Phone Number [place] [facility] * Hepatitis C Virus Antibody (09/16/2023 4:24 PM CDT) [facility] HCVAb. Non Reactive Non Reactive 09/17/2023 9:11 AM CDT [facility] Blood Peripheral blood specimen / Unknown Venipuncture / Unknown 09/16/2023 4:24 PM CDT 09/16/2023 4:41 PM CDT Narrative [facility] - 09/17/2023 9:11 AM CDT Antibody detection in the immunocompromised and immunosuppressed population may be delayed or absent entirely. Therefore serial testing, correlation with other clinical findings, and supplemental testing (if available) should be taken into consideration when interpreting the results. Shazia Arriaza MD LAB BLOOD ORDERABLES Final Result Performing Organization Address [facility] Co de Phone Number [facility] Unless otherwise noted, all lab tests performed by: Division of Pathology and Laboratory Medicine [address] [place] [phone] * Aldosterone Level (09/16/2023 4:24 PM CDT) [facility] Aldosterone-Hayden 8.1 <=21 ng/dL 09/20/2023 1:02 AM CDT [place] [facility] Comment: ADDITIONAL INFORMATION Reference range for patients 11 years and older is based on upright A.M. collection from subjects without sodium restrictions. This test was developed and its performance characteristics determined by [facility] in a manner consistent with CLIA requirements. This test has not been cleared or approved by the U.S. Food and Drug Administration. Test Performed by: [facility] - [address] [address] Principal Scientist: Scot Skelton M.D. Ph.D.; CLIA# [id number] Blood Peripheral blood specimen / Unknown Venipuncture / Unknown 09/16/2023 4:24 PM CDT 09/16/2023 4:41 PM CDT Shazia Arriaza MD LAB BLOOD ORDERABLES Final Result Performing Organization Address City/[facility]/ZIP Co de Phone Number [facility]FF * Renin Activity (09/16/2023 4:24 PM CDT) [facility] Renin Activity-Hayden 4.3 ng/mL/h 09/19 3:42 PM CDT [facility] Comment: REFERENCE VALUE (Peripheral vein specimen) Na-deplete, upright: Mean: 5.9 Range: 2.9-10.8 Na-replete, upright: Mean: 1.0 Range: < or =0.6-3.0 ADDITIONAL INFORMATION Testing performed by Liquid Chromatography-Tandem Mass Spectrometry (LC-MS/MS). This test was developed and its performance characteristics determined by [facility] in a manner consistent with CLIA requirements. This test has not been cleared or approved by the U.S. Food and Drug Administration. Test Performed by: [place] [address] Principal Scientist: Scot Skelton M.D. Ph.D.; CLIA# [id number] Blood Peripheral blood specimen / Unknown Venipuncture / Unknown 09/16/2023 4:24 PM CDT 09/16/2023 4:41 PM CDT Shazia Arriaza MD LAB BLOOD ORDERABLES Final Result Performing Organization Address City/[facility]/ZIP Co de Phone Number [facility]FF * Urine Culture (09/16/2023 4:24 PM CDT) [facility] Urine Culture Normal site mirna present. Generally of low significance. Correlate with clinical data and culture history. 09/18/2023 8:31 AM CDT [facility] Urine Voided urine specimen / Unknown Non-blood Collection / Unknown 09/16/2023 4:24 PM CDT 09/16/2023 4:41 PM CDT Result Awa Arriaza MD MICROBIOLOGY - GENERAL ORD ERABLES Final Result [facility] Unless otherwise noted, all lab tests performed by: Division of Pathology and Laboratory Medicine [address] [place] [address] * T4 (09/16/2023 4:24 PM CDT) [facility] Thyroxine 7.0 4.5 - 11.7 mcg/dL 09/16/2023 5:55 PM CDT [facility] Blood Peripheral blood specimen / Unknown Venipuncture / Unknown 09/16/2023 4:24 PM CDT 09/16/2023 4:41 PM CDT Result Awa Arriaza MD LAB BLOOD ORDERABLES Final Result Performing Organization Address City/[facility]/ZIP Co de Phone Number [facility] Unless otherwise noted, all lab tests performed by: Division of Pathology and Laboratory Medicine [address] [place] [phone] * Confirm ABORh (09/16/2023 4:23 PM CDT) [facility] ABORh Confirm O POS 09/16/2023 4:15 PM CDT [facility] Blood Peripheral blood specimen / Unknown Venipuncture / Unknown 09/16/2023 4:23 PM CDT 09/16/2023 4:41 PM CDT Result Awa Arriaza MD BLOOD BANK TEST ORDERABLES Final Result Performing Organization Address City/[facility]/ZIP Co de Phone Number [facility] TRANSF[facility]ION [facility] [address] [place] [address] * OSI CT Brain (07/17/2023 7:40 AM PILE OPERATOR) Narrative Systemgenerated, Documentation - 08/08/2023 7:40 AM CDT Study acquired at another institution. For comparison only. No [facility] originated interpretation requested or available. us Margoth Souza MD IMG OUTSIDE IMAGE ORDERABLES Fin al Result after 07/15/2023 Insurance MEDICARE PART A AND B MEDICARE PART A AND B Advance Directives * Full Code (Latest Code Status on File) Date Activated Date Inactivated Comments 04/12/2024 1:24 PM 04/12/2024 5:43 PM * Full Code Date Activated Date Inactivated Comments 01/02/2024 1:48 PM 01/03/2024 7:17 PM Care Teams Mannequin Molder Relationship Specialty Start Date End Date Margoth Souza MD [address] [place] [phone] [email or web address] PCP - General Urology 07/30/23 04/14/24 Maame Zhuh DO [place] [address] [place] [phone] [email or web address] PCP - External Primary Care Provider Family Practice 04/08/24 Marianela Hutchinson MD [address] [place] [phone] [email or web address] PCP - General Gastrointestinal Medical Oncology 05/04/24 Mary Jane Cassidy MD [address] [place] [phone] [email or web address] Consulting Physician Endocrinology 12/09/23 Barry He MD [address] [place] [phone] [email or web address] Consulting Physician Internal Medicine 12/23/23 Patience Hunt MD [address] [place] [phone] [email or web address] Consulting Physician Endocrinology 12/31/23 Marianela Hutchinson MD [address] [place] [address] [phone] [email or web address] Consulting Physician Gastrointestinal Medical Oncology 04/13/24 Margoth Souza MD [address] [place] [phone] [email or web address] Consulting Physician Urology 04/15/24 Ceci Nicholson MD [address] [place] [address] [phone] [email or web address] Consulting Physician Internal Medicine 04/09/24 Sigifredo Davenport MD [address] [place] [address] [phone] [email or web address] Consulting Physician Internal Medicine 06/29/24
[2024-07-14] MEDS ORDERED: droPERidol 5 MG/2 ML VIAL ONE (22:28)
[2024-07-14] MEDS ORDERED: NA CHLORIDE 0.9% 1,000 ML ONE (22:28)
[2024-07-14] MEDS ORDERED: DIPHENHYDRAMINE 50 MG/ML VIAL ONE (22:28)
[2024-07-14 22:40] LABS: Absolute Basophils 0.1 K/uL (0-0.5); Absolute Eosinophils 0.1 K/uL (0-0.5); Absolute Lymphocytes (CBC) 2.4 K/uL (0.7-4.9); Absolute Monocytes 0.5 K/uL (0.1-1.3); Absolute Neutrophil 3.7 K/uL (1.8-8.0); Basophils % 0.9 % (0-1.3); Hematocrit 40.2 % (39.6-49.0); Hemoglobin 13.5 g/dL (13.6-17.9); Lymphocytes % 35.6 % (15.3-44.8); MCH 25.4 pg (27.0-35.0); MCHC 33.6 g/dL (32.0-36.0); MCV 75.6 fL (80-100); MPV 7.6 fL (7.6-11.3); Monocytes % 7.7 % (3.3-12.3); Neutrophils % 53.8 % (41.7-73.7); Nucleated Red Blood Cells % 0.1 % (0-0); Platelets 267 thou/uL (152-406); RBC Red Blood Cell Count 5.33 M/uL (4.33-5.43); Red Cell Distribution Width 16.5 % (12.1-15.2)
[2024-07-14 22:43] LABS: PT Prothrombin Time 11.5 SECONDS (10.0-13.0); Protime INR 1.01
[2024-07-14 22:54] LABS: Anion Gap 17.5 mEq/L (5.0-15.0); Potassium 3.5 mEq/L (3.5-5.1); Troponin High Sensitivity 13.8 pg/mL (<58.9)
[2024-07-14 23:07] LABS: PTT, Activated Partial Thromb 28.6 SECONDS (24.3-36.9)
[2024-07-14] MEDS ORDERED: NITROGLYCERIN 0.4 MG/TAB SL ONE (23:08)
[2024-07-15 00:34] LABS: Renal Epithelial <5 /HPF (None Seen); Specific Gravity 1.008 (1.005-1.030); Sqamous Epithelial <5 /HPF (None Seen); Urine Bacteria <20 /HPF (<20); Urine Bilirubin NEGATIVE (Negative); Urine Blood Trace (Negative); Urine Clarity Clear (Clear); Urine Color Light-Yellow (Yellow); Urine Culture Reflex Order NOT NEEDED; Urine Glucose 3+ (Negative); Urine Ketones TRACE (Negative); Urine Micro Reflex YN NO BILL MICROSCOPIC; Urine Mucus Slight /HPF (None Seen); Urine Nitrite NEGATIVE (Negative); Urine Protein 1+ (Negative); Urine RBC <5 /HPF (None Seen); Urine Urobilinogen Normal (Normal); Urine WBC <5 /HPF (<5)
[2024-07-15 01:54] LABS: Anion Gap 8.7 mEq/L (5.0-15.0); Potassium 3.7 mEq/L (3.5-5.1); Troponin High Sensitivity 18.2 pg/mL (<58.9)
--- NOTE | 2024-07-15 02:03 | EDPHYS ---
Physician Documentation [facility] Name: Zeke Mackay Sr Age: 59 yrs Sex: Male : 1965 Arrival Date: 07/14/2024 Time: 22:01 Bed 4 Private MD: ED Physician Pardeep Knox HPI: 07/14 22:24 This 59 yrs old Male presents to ER via Unassigned with complaints of ec2 Shortness Of Breath, Weakness. 22:24 Patient arrives today for evaluation of generalized weakness, shortness of breath. ec2 Patient with history of hypertension, hyperlipidemia, diabetes, gastric and esophageal cancer on chemotherapy, arrives today for malaise. No chest pain, does endorse difficulty breathing, no cough and cold symptoms, no urinary complaints.. 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 - Infectious Disease History:: Denies. - Social history:: Smoking status: unknown. ROS: 22:24 Constitutional: as per hpi ec2 Exam: 22:24 Constitutional: GEN: NAD Head: atraumatic Eyes: EOMI Ears: External ears are ec2 normal. CV: regular rate LUNGS: no respiratory distress, no wheezes rales or rhonchi ABD: non-distended , Soft, nontender, not guarding, not rigid SKIN: no evidence of rashes MSK: no evidence of trauma Vital Signs: 22:04 BP 231 / 112; Pulse 93; Resp 28; Pulse Ox 10% ; Weight 84 kg; vc1 22:40 BP 181 / 88; Pulse 88; Resp 20 S; Pulse Ox 100% on R/A; ha1 23:00 BP 211 / 98; Pulse 83; Resp 17 S; Pulse Ox 99% on R/A; ha1 23:11 BP 220 / 90; Pulse 82; Resp 17 S; Pulse Ox 98% on R/A; ha1 23:31 BP 176 / 89; ec2 23:37 BP 176 / 89; Pulse 84; Resp 17 S; Pulse Ox 98% on R/A; ha1 07/15 01:10 BP 174 / 91; Pulse 74; Resp 17 S; Pulse Ox 98% on R/A; lg3 02:15 BP 167 / 85; Pulse 73; Resp 17; Pulse Ox 99% on R/A; al5 MDM: 07/14 22:21 Medical Screening Exam initiated ec2 22:24 Data reviewed: nurses notes. Data reviewed: vital signs. ED course: Patient arrives ec2 today for evaluation of weakness and shortness of breath. Examination is revealing for nontoxic individual with a reassuring pulmonary examination and a reassuring abdominal examination. EKG obtained, independently reviewed and interpreted by me, shows normal sinus rhythm, rate 97, no acute ST segment elevations, normals are nonactionable. Will obtain lab work, chest x-ray, give the patient crystalloid. 22:27 ED course: Today's EKG when compared to previous EKG appears grossly similar.. ec2 22:31 ED course: Of note patient being verbally aggressive as well as physically aggressive ec2 with nursing. Daughter reports he has an irritable individual. 23:13 ED course: Of note patient is noted to be hypertensive, patient reports he has not been ec2 taking his prescribed antihypertensive. On reassessment patient denies any chest pain. 07/15 01:13 ED course: Repeat EKG independently reviewed and interpreted by me, shows normal sinus ec2 rhythm, rate 72, no acute ST segment elevations, intervals are nonactionable, compared to initial EKG, appears significantly unchanged.. 01:58 ED course: Patient with static troponin, metabolic profile with close anion gap, ec2 reassuring electrolytes.. 02:01 ED course: On reassessment patient is awake and alert, behaving appropriately, patient ec2 with reassuring lab work, patient tolerating p.o. without issue. Will discharge home. Return precautions given.. 02:02 ED course: Patient does have close follow-up with his primary care doctor in the [place] ec2 07/14 22:23 Order name: Basic Metabolic Panel; Complete Time: 23:06 ec2 07/14 22:23 Order name: CBC with Diff; Complete Time: 22:51 ec2 07/14 22:23 Order name: NT PRO-BNP; Complete Time: 23:06 ec2 07/14 22:23 Order name: PT-INR; Complete Time: 00:01 ec2 07/14 22:23 Order name: Troponin HS; Complete Time: 23:06 ec2 07/14 22:24 Order name: UAM; Complete Time: 00:49 ec2 07/14 23:03 Order name: PTT, Activated Partial Thromb; Complete Time: 00:01 EDMS 07/15 00:53 Order name: BMP; Complete Time: 01:58 ec2 07/15 00:53 Order name: Troponin High Sensitivity; Complete Time: 01:58 ec2 07/14 22:23 Order name: XRAY Chest (1 view) ec2 07/14 22:23 Order name: EKG; Complete Time: 22:24 ec2 07/14 22:23 Order name: Cardiac monitoring; Complete Time: 22:37 ec2 07/14 22:23 Order name: EKG - Nurse/Tech; Complete Time: 22:37 ec2 07/14 22:23 Order name: IV Saline Lock; Complete Time: 22:37 ec2 07/14 22:23 Order name: Labs collected and sent; Complete Time: 22:37 ec2 07/14 22:23 Order name: O2 Per Protocol; Complete Time: 22:37 ec2 07/14 22:23 Order name: O2 Sat Monitoring; Complete Time: 22:37 ec2 07/15 00:53 Order name: EKG - Nurse/Tech; Complete Time: 01:09 ec2 07/15 00:53 Order name: Misc. Order: repeat ekg/trop/bmp; Complete Time: 01:08 ec2 Administered Medications: 07/14 22:30 Drug: NS 0.9% IV 1000 ml IV at 1 bolus Per protocol; to be given as a bolus over 60 ha1 minutes Route: IV; Rate: 1 bolus; Site: right antecubital; 07/15 00:10 Follow up: Response: No adverse reaction; IV Status: Infusion continued 07/14 22:35 Drug: Droperidol IVP 1.25 mg IVP once Route: IVP; Site: right antecubital; ha1 23:04 Follow up: Response: No adverse reaction; Marked relief of symptoms; Anxiety decreased ha1 22:37 Drug: diphenhydrAMINE IVP 25 mg IVP once Route: IVP; Site: right antecubital; ha1 23:04 Follow up: Response: No adverse reaction; Marked relief of symptoms ha1 23:05 Drug: Nitroglycerin Sublingual 0.4 mg Sublingual once; every five minute if needed x3 ha1 Route: Sublingual; 23:30 Follow up: Response: No adverse reaction; Blood pressure is lowered ha1 07/15 00:00 Drug: Nitroglycerin Sublingual 0.4 mg Sublingual once; every five minute if needed x3 ha1 Route: Sublingual; 02:22 Follow up: Response: No adverse reaction al5 Disposition Summary: 07/15/24 02:02 Discharge Ordered Notes: Location: Home ec2 Condition: Stable ec2 Diagnosis - Dyspnea, unspecified ec2 - Weakness ec2 Followup: ec2 - With: Private Physician - When: - Reason: Re-evaluation by your physician Discharge Instructions: - Discharge Summary Sheet ec2 - Shortness of Breath, Adult, [id number] ec2 Forms: - Medication Reconciliation Form ec2 - Antibiotic Education ec2 - Prescription Opioid Use ec2 - Patient Portal Instructions ec2 - Leadership Thank You Letter ec2 Signatures: Dispatcher [employer] EDCT Jacque Gamboa RN RN vc1 Moni Douglas RN RN ha1 Pardeep Knox MD MD ec2 Kianna Roy RN al5 Corrections: (The following items were deleted from the chart) 07/14 21: 22:24 Constitutional: GEN: NAD Head: atraumatic Eyes: EOMI Ears: External ears are ec2 normal. CV: regular rate LUNGS: no respiratory distress, no wheezes rales or rhonchi ABD: non-distended SKIN: no evidence of rashes MSK: no evidence of trauma ec2 23:03 22:27 PTT, ACTIVATED+COAG.LAB.BRZ ordered. EDCT EDMS 07/15 00:07 07/14 22:24 Fermin ordered. ec2 ha1
--- NOTE | 2024-07-15 02:03 | ER ---
Nurse's Notes [facility] Name: Zeke Mackay Sr Age: 59 yrs Sex: Male : 1965 Arrival Date: 07/14/2024 Time: 22:01 Bed 4 Private MD: Diagnosis: Dyspnea, unspecified;Weakness Presentation: 07/14 22:04 Note Pt sitting outside ER doors in wheel chair yelling at staff, "someone bring me vc1 back, I can't breathe". I walked out of the ER and pulled patient to triage to check vitals. Pt yells, "ya just pull me in here and not take me to a room I told you I can't breathe." In triage pts oxygen is 100% and heart rate 94. Pt is breathing 28 BPM. I asked patient to remove his robe so I can get an accurate Blood pressure. Pt states "just do it over my sleeve." I inform patient again that I need to make sure I get an accurate reading so I need him to take his sleeve off. Pts daughter is at his side and states, "please dad just do it." Pt goes to pull off pulse ox and grabs me by the finger pulling it with the pulse ox. Pts daughter yells, "dad stop, you just hurt her". Pt pulls his arm out and allows me to get a blood pressure. 22:04 Chief complaint: Patient states: Shortness of breath and weakness. Coronavirus screen: vc1 Client denies travel out of the [place] in the last 14 days. At this time, the client does not indicate any symptoms associated with coronavirus-19. Ebola Screen: Patient negative for fever greater than or equal to 101.5 degrees Fahrenheit, and additional compatible Ebola Virus Disease symptoms Patient denies exposure to infectious person. Patient denies travel to an Ebola-affected area in the 21 days before illness onset. No symptoms or risks identified at this time. Initial Sepsis Screen: Does the patient meet any 2 criteria? RR > 20 per min. Does the patient have a suspected source of infection? No. Patient's initial sepsis screen is negative. Risk Assessment: Do you want to hurt yourself or someone else? Patient reports no desire to harm self or others. Onset of symptoms was July 14, 2024. 22:04 Method Of Arrival: Wheelchair vc1 22:04 Acuity: RICKEY 3 vc1 Triage Assessment: 22:04 General: Appears distressed, uncomfortable, slender, Behavior is combative, vc1 uncooperative. Pain: Denies pain. EENT: No deficits noted. No signs and/or symptoms were reported regarding the EENT system. Neuro: Level of Consciousness is awake, alert, Oriented to person, place, time, situation, Appropriate for age. Cardiovascular: Capillary refill < 3 seconds Patient's skin is warm and dry. Respiratory: Reports shortness of breath at rest Onset: The symptoms/episode began/occurred suddenly, the patient has mild shortness of breath. GI: No deficits noted. No signs and/or symptoms were reported involving the gastrointestinal system. : No deficits noted. No signs and/or symptoms were reported regarding the genitourinary system. Derm: Skin is intact, is healthy with good turgor, Skin is dry, Skin is normal, Skin temperature is warm. Musculoskeletal: Circulation, motion, and sensation intact. 22:04 Respiratory: Airway is patent Respiratory effort is even, unlabored, Respiratory vc1 pattern is symmetrical, tachypnea. 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 - Infectious Disease History:: Denies. - Social history:: Smoking status: unknown. Screenin/26 02:20 [facility] ED Fall Risk Assessment (Adult) History of falling in the last 3 months, al5 including since admission No falls in past 3 months (0 pts) Confusion or Disorientation No (0 pts) Intoxicated or Sedated No (0 pts) Impaired Gait No (0 pts) Mobility Assist Device Used No (0 pt) Altered Elimination No (0 pt) Score/Fall Risk Level 0 - 2 = Low Risk Oriented to surroundings, Maintained a safe environment, Hourly rounding (assess needs \\T\\ fall precautionary measures) done. Abuse screen: Denies threats or abuse. Denies injuries from another. Nutritional screening: No deficits noted. Tuberculosis screening: No symptoms or risk factors identified. Assessment: 07/14 22:21 General: Appears uncomfortable, Behavior is anxious, restless, uncooperative. Pain: ha1 Unable to use pain scale. not wanting to answer questions. Neuro: Level of Consciousness is awake, alert, obeys commands, Oriented to person, place, time, situation. Cardiovascular: Capillary refill < 3 seconds Patient's skin is warm and dry. Rhythm is sinus rhythm. Respiratory: Reports shortness of breath at rest Airway is patent Respiratory effort is even, unlabored, Respiratory pattern is regular, symmetrical, Breath sounds are clear bilaterally. GI: No signs and/or symptoms were reported involving the gastrointestinal system. Abdomen is round non-distended. : No signs and/or symptoms were reported regarding the genitourinary system. Derm: Skin is pink, warm \\T\\ dry. Musculoskeletal: Circulation, motion, and sensation intact. 23:00 Reassessment: Patient and/or family updated on plan of care and expected duration. Pain ha1 level reassessed. Patient is alert, oriented x 3, equal unlabored respirations, skin warm/dry/pink. Patient states feeling better. Patient states symptoms have improved. General: Behavior is calm, cooperative, quiet, PATIENT STATES " I HAVE NOT TAKEN MY BLOOD MEDICINES TODAY." NOTIFIED DR. KNOX OF ELEVATED BLOOD PRESSURE. . 07/15 00:00 Reassessment: Patient and/or family updated on plan of care and expected duration. Pain ha1 level reassessed. Patient is alert, oriented x 3, equal unlabored respirations, skin warm/dry/pink. Vital Signs: 07/14 22:04 BP 231 / 112; Pulse 93; Resp 28; Pulse Ox 10% ; Weight 84 kg; vc1 22:40 BP 181 / 88; Pulse 88; Resp 20 S; Pulse Ox 100% on R/A; ha1 23:00 BP 211 / 98; Pulse 83; Resp 17 S; Pulse Ox 99% on R/A; ha1 23:11 BP 220 / 90; Pulse 82; Resp 17 S; Pulse Ox 98% on R/A; ha1 23:31 BP 176 / 89; ec2 23:37 BP 176 / 89; Pulse 84; Resp 17 S; Pulse Ox 98% on R/A; ha1 07/15 01:10 BP 174 / 91; Pulse 74; Resp 17 S; Pulse Ox 98% on R/A; lg3 02:15 BP 167 / 85; Pulse 73; Resp 17; Pulse Ox 99% on R/A; al5 ED Course: 07/14 22:03 Patient arrived in ED. [email or web address] 22:06 Pardeep Knox MD is Attending Physician. ec2 22:37 Basic Metabolic Panel Sent. ha1 22:37 CBC with Diff Sent. ha1 22:37 NT PRO-BNP Sent. ha1 22:37 PT-INR Sent. ha1 22:37 Troponin HS Sent. ha1 22:48 Triage completed. vc1 22:53 XRAY Chest (1 view) In Process Unspecified. EDMS 22:53 Moni Douglas, ARTURO is Primary Nurse. 07/15 01:08 Lab(s) recollected, by me, sent to lab. EKG done, by ED staff, reviewed by Pardeep loja MD. 01:09 BMP Sent. lg3 02:21 No provider procedures requiring assistance completed. IV discontinued, intact, al5 bleeding controlled, No redness/swelling at site. Pressure dressing applied. 02:21 Patient has correct armband on for positive identification. Bed in low position. Call al5 light in reach. Side rails up X2. Provided Education on: discharge follow up. Administered Medications: 07/14 22:30 Drug: NS 0.9% IV 1000 ml IV at 1 bolus Per protocol; to be given as a bolus over 60 ha1 minutes Route: IV; Rate: 1 bolus; Site: right antecubital; 07/15 00:10 Follow up: Response: No adverse reaction; IV Status: Infusion continued 07/14 22:35 Drug: Droperidol IVP 1.25 mg IVP once Route: IVP; Site: right antecubital; ha1 23:04 Follow up: Response: No adverse reaction; Marked relief of symptoms; Anxiety decreased ha1 22:37 Drug: diphenhydrAMINE IVP 25 mg IVP once Route: IVP; Site: right antecubital; ha1 23:04 Follow up: Response: No adverse reaction; Marked relief of symptoms ha1 23:05 Drug: Nitroglycerin Sublingual 0.4 mg Sublingual once; every five minute if needed x3 ha1 Route: Sublingual; 23:30 Follow up: Response: No adverse reaction; Blood pressure is lowered ha1 07/15 00:00 Drug: Nitroglycerin Sublingual 0.4 mg Sublingual once; every five minute if needed x3 ha1 Route: Sublingual; : Follow up: Response: No adverse reaction al5 Medication: 02:21 VIS not applicable for this client. al5 Outcome: : Discharge ordered by . ec2 :22 Discharged to home ambulatory, with family, al5 : Condition: good : Discharge instructions given to patient, Instructed on discharge instructions, follow up and referral plans. Demonstrated understanding of instructions, follow-up care, : Patient left the ED. al5 Signatures: Dispatcher [employer] Diana Braswell, RN RN lg3 Adriana Christie6 Jacque Gamboa RN RN 1 Moni Douglas, RN RN ha1 Pardeep Knox MD MD ec2 Kianna Roy RN RN al5
[2024-07-15 02:43] VITALS: BP 167/85; O2SAT 99
--- NOTE | 2024-07-15 05:59 | RAD REPORT ---
CLINICAL HISTORY: COUGH. COMPARISON: Chest radiograph from February 09, 2023. TECHNIQUE: Single view AP chest radiograph(s). FINDINGS: Right IJ infusion port catheter terminates near the superior cavoatrial junction. No pulmonary infi ltrate or edema identified. No pleural effusion. No pneumothorax. Nonenlarged cardiomediastinal silhouette. Median sternotomy wires. IMPRESSION: No acute cardiopulmonary abnormality identified by radiograph. Electronically signed by: Vy Mcintyre MD 07/14/2024 11:11 PM [facility] Due to temporary technical issues with the [employer] reporting system, reports are being signed by the in-house radiologist without review as a courtesy to ensure prompt reporting the interpreting radiologist is fully responsible for the content of the report. Transcribed Date/Time: 07/15/2024 5:59 AM
--- NOTE | 2024-07-16 16:49 | EKG ---
Test Date: 2024-07-14 Test Time: 22:22:12 Land Development Project Manager: KEMI MEASUREMENT RESULTS: Intervals: Rate: 97 NC: 154 QRSD: 76 QT: 362 QTc: 459 [place]: P: 57 NC: 154 QRS: 20 T: 191 INTERPRETIVE STATEMENTS: Sinus rhythm with premature atrial complexes Septal infarct, age undetermined ST & T wave abnormality, consider inferolateral ischemia Abnormal ECG Compared to ECG 04/12/2024 03:28:25 Atrial premature complex(es) now present Myocardial infarct finding now present Prolonged QT interval no longer present ST (T wave) deviation still present Possible ischemia still present Electronically Signed On 07-16-24 16:45:35 IMPLEMENTATION PROJECT MANAGER by Lucas Huang
== END 2024-07-15 02:22 | disposition home or self-care (01) ==
LOC: ER 22:01
DX: R06.00 Dyspnea, unspecified (principal); R53.1 Weakness; R53.81 Other malaise; I10 Essential (primary) hypertension; C15.9 Malignant neoplasm of esophagus, unspecified; C16.2 Malignant neoplasm of body of stomach; Z95.1 Presence of aortocoronary bypass graft
CPT/HCPCS: 85025; 81001; 80048 ×2; 36415; 85610; 85730; 84484 ×2; 83880; 71045; J1200; J1790; J7030; 93005; 96361; 96374; 96375; 99285

== ENCOUNTER 2024-07-15 23:13 | Emergency (ER) | payer OTHER ==
--- OUTSIDE RECORDS SUMMARY | 2024-07-15 23:19 | XMS REPORT | Clinical Summary ---
Author Name Unknown Organization [facility] Address [address] [place] [address] Care Team Providers Care Insurance Claims Representative Name Role Phone Margoth Souza MD Primary Care Provider [phone] Mary Jane Cassidy MD Unavailable [phone] Barry He MD Unavailable Patience Hunt MD Unavailable ZhuEagle gomez DO Unavailable [phone] Marianela Hutchinson MD Unavailable [phone] Margoth Souza MD Unavailable Ceci Nicholson MD Unavailable [phone] Marianela Hutchinson MD Primary Care Provider [phone] Sigifredo Davenport MD Unavailable Allergies No known [...] by Tylenol). 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 01/02/2024 04/14/2024 Diabetic ketoacidosis 2023 Overview (01/01/2024): Hospitalized locally 12/03/2023-12/06/2023 Encounters Date Type Department Care Team Description 07/15/2024 10:08 AM CONING MACHINE OPERATOR Hospital Encounter Main CT IMAGING 15[address] [facility] [place] Main dg, 3rd [place] [address] Mary Kay Santamaria APRN Adenocarcinoma of stomach 07/15/2024 9:49 AM CONING MACHINE OPERATOR Hospital Encounter Diagnostic Laboratory Center 15[address] [facility] [place] Main dg, [place] [address] Mary Kay Santamaria APRN Adenocarcinoma of stomach 07/07/2024 Orders Only [facility] 15[address] [facility] [place] Main dg, 7th Floor Elevator A [place], [place] [phone] Gillian Gomez PA-C Adenocarcinoma of stomach (Primary Dx) 07/06/2024 Telephone [facility] - Surgical Oncology [address] [place] [address] Main [facility], 7th [place] [address] Mary Kay Santamaria, ASSISTANT DIRECTOR OF RESIDENCE LIFE 07/06/2024 Orders Only [facility] [address] [place] [address] Main [facility], 7th [place] [address] Mary Kay Santamaria, ASSISTANT DIRECTOR OF RESIDENCE LIFE 07/06/2024 Orders Only [facility] [address] [place] [address] Main [facility], 7th [place] [address] Gillian Gomez PA-C Adenocarcinoma of stomach (Primary Dx) 07/06/2024 Multidisciplinary Visit [facility] [address] [place] [address] Main [facility], 7th [place] [address] Gillian Gomez PA-C 07/06/2024 Orders Only [facility] [address] [place] [address] Main [facility], 7th [place] [address] Donnell Van Adenocarcinoma of stomach (Primary Dx) 07/02/2024 11:00 AM CONING MACHINE OPERATOR Nutrition Clinical Nutrition For your Nutrition appointment location directions please call: Marianela Hutchinson MD Munder, Kathryn, SCOTT Left without seen 07/02/2024 10:30 AM CONING MACHINE OPERATOR Follow-Up [facility] [address] [place] [address] Main dg, 7th [place] [address] John Fong MD Adenocarcinoma of stomach 07/02/2024 Documentation [facility] Oncology [address] [place] [address] Main [facility], 7th [place] [address] John Fong MD 06/30/2024 3:33 PM CONING MACHINE OPERATOR Anesthesia Event Perioperative Evaluation and Management Center [address] [place] [address] Main [facility], 6th [place] [address] Lien Antonio, RN 06/30/2024 12:25 PM CONING MACHINE OPERATOR Anesthesia Event Endoscopy Center [address] [place] [address] Main [facility], 5th Floor Elevator C [place] [phone] Susana Kelly MD 06/30/2024 12:00 PM CONING MACHINE OPERATOR - 06/30/2024 12:45 PM CONING MACHINE OPERATOR Surgery Endoscopy Center [address] [place] [address] Main [facility], 5th [place] [address] Brandon Alcala MD DIAGNOSTIC UPPER GASTROINTESTINAL ENDOSCOPY 06/30/2024 10:15 AM CONING MACHINE OPERATOR - 06/30/2024 2:24 PM CONING MACHINE OPERATOR Hospital Encounter Endoscopy Center [address] [place] [address] Main [facility], 5th Floor Elevator C [place] [phone] Brandon Alcala MD Adenocarcinoma of stomach Discharge Disposition: Home 06/30/2024 Travel 06/29/2024 9:00 AM CONING MACHINE OPERATOR Consult Perioperative Evaluation and Management [address] [place] [address], 6th Floor Elevator A [place] [phone] Mary Kay Santamaria APRN Vu, Khanh D, MD Encounter for preprocedural cardiovascular examination (Primary Dx); Coronary arteriosclerosis, not otherwise specified; Cardiomyopathy, not otherwise specified; Hypertension; half-way current use of 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; Type 2 diabetes mellitus with hyperglycemia; Dyslipidemia; Hyponatremia; Hyperkalemia; Adenocarcinoma of stomach; Paroxysmal atrial fibrillation; Hyperlipidemia, not otherwise specified 06/29/2024 8:00 AM CONING MACHINE OPERATOR POEM Appointments Perioperative Evaluation and Management Center [address] [place] [address] Main [facility], 6th [place] [address] Marianela Hutchinson MD 06/29/2024 7:30 AM CONING MACHINE OPERATOR - 06/29/2024 11:59 PM CONING MACHINE OPERATOR Hospital Encounter [facility] [address] [place] [address] Main [facility], 2nd [place] [address] Mary Kay Santamaria APRN Adenocarcinoma of stomach Discharge Disposition: Home 06/29/2024 Travel 06/23/2024 Documentation [facility] [address] [place] [address] Main [facility], 7th [place] [address] Mony Saavedra RN 06/22/2024 12:20 PM CONING MACHINE OPERATOR Follow-Up [facility] [address] [place] [address], [address] [place] [address] [place] [address] Marianela Hutchinson MD Adenocarcinoma, NOS of stomach, NOS 06/22/2024 Orders Only [facility] [address] [place] [address], [address] [place], [place] [address] [address] Radha Castellon, [facility] 06/22/2024 Travel 06/20/2024 10:45 AM CONING MACHINE OPERATOR - 06/20/2024 11:59 PM CONING MACHINE OPERATOR Hospital Encounter Diagnostic Imaging [facility] [address] [place] [address], 3rd [place] [address] Adenocarcinoma, NOS of stomach, NOS; Malignant neoplasm of overlapping sites of esophagus Discharge Disposition: Home 06/20/2024 10:08 AM CONING MACHINE OPERATOR - 06/20/2024 10:44 AM CONING MACHINE OPERATOR Hospital Encounter [facility] [address] [place] [address], [place] [address] Gillian Gomez PA-C Adenocarcinoma, NOS of stomach, NOS Discharge Disposition: Home 06/16/2024 [place] - [facility] Oncology [address] [place] [address], [address] [place], [place] [address]ator [place] [address] Mary Kay Santamaria APRN 06/15/2024 1:30 PM CONING MACHINE OPERATOR [facility] [address] [facility], 8th [place] [address] Marianela Hutchinson MD [facility], Jorge Tyson RN Adenocarcinoma of stomach (Primary Dx); Iron deficiency anemia, not otherwise specified 06/15/2024 12:40 PM CONING MACHINE OPERATOR Follow-Up [facility] [address] [place] [address], [address] [place] [address] [place] [address] Marianela Hutchinson MD Adenocarcinoma, NOS of stomach, NOS; Malignant neoplasm of overlapping sites of esophagus 06/15/2024 10:24 AM CONING MACHINE OPERATOR - 06/15/2024 11:59 PM CONING MACHINE OPERATOR Hospital Encounter Diagnostic Laboratory Center [facility] [place] Main [facility], [place] [address] Marianela Hutchinson MD Adenocarcinoma of stomach; Adenocarcinoma, NOS of stomach, NOS Discharge Disposition: Home 06/15/2024 Orders Only [facility] [address] [place] [address] Main dg, 7th [place] [address] Radha Castellon [facility] Adenocarcinoma of stomach (Primary Dx) 06/15/2024 Orders Only [facility] [address] [place] [address] Main [facility], 7th [place] [address] Gillian Gomez PA-C 06/15/2024 Travel 06/15/2024 Telephone [facility] - Gastroenterology, Hepatology & Nutrition [address] [place] [address] Main [facility], 7th [place] [address] Arnaldo Araujo PA-C 06/15/2024 Multidisciplinary Visit [facility] [address] [place] [address] Main [facility], 7th [place] [address] Lakeshia Pablo PA 06/15/2024 Orders Only [facility] [address] [place] [address] Main [facility], 7th [place] [address] Marianela Hutchinson MD Adenocarcinoma of stomach (Primary Dx) 06/12/2024 Prep for Surgery [facility] - Gastroenterology, Hepatology & Nutrition [address] [place] [address] Main [facility], [address] [place] [address] [place] [address] Arnaldo Araujo PA-C Adenocarcinoma of stomach (Primary Dx) 06/12/2024 Telephone [facility] - Surgical Oncology [facility] [place] Main [facility], 7th [place] [address] Mary Kay Santamaria APRN 06/12/2024 Orders Only [facility] - Surgical Oncology [facility] [place] Main dg, 7th [place] [address] Mary Kay Santamaria, FRANK Adenocarcinoma of stomach (Primary Dx) 06/10/2024 Orders Only [facility] - Surgical Oncology [address] [place] [address] Main [facility], 7th [place] [address] Mary Kay Santamaira APRN Adenocarcinoma of stomach (Primary Dx) 06/05/2024 Telephone [facility] - Gastroenterology, Hepatology & Nutrition [address] [place] [address] Main [facility], 7th [place] [address] Arnaldo Araujo PA-C 06/03/2024 5:30 PM CONING MACHINE OPERATOR [facility] [address] [facility], 8th [place] [address] Marianela Hutchinson MD Lewandowski, Teresa M, RN Adenocarcinoma of stomach (Primary Dx) 06/03/2024 Travel 06/02/2024 Telephone [facility] [address] [place] [address], 7th [place] [address] Mony Saavedra RN 06/01/2024 1:00 PM CONING MACHINE OPERATOR Infusion [facility] [address] [facility], Floor 6 [place] [address] Marianela Hutchinson MD Shaik, Anna Marie B, RN Adenocarcinoma of stomach (Primary Dx); Iron deficiency anemia, not otherwise specified 06/01/2024 10:53 AM CONING MACHINE OPERATOR - 06/01/2024 11:59 PM CONING MACHINE OPERATOR Hospital Encounter Diagnostic Laboratory Center [address] [place] [address], [place] [address] Marianela Hutchinson MD Adenocarcinoma of stomach; Iron deficiency anemia, not otherwise specified Discharge Disposition: Home 06/01/2024 Orders Only [facility] [address] [place] [address] Main [facility], 7th [place] [address] Marianela Hutchinson MD 06/01/2024 Orders Only [facility] [address] [place] [address] Main [facility], 7th [place] [address] Radha Castellon Werner Adenocarcinoma of stomach (Primary Dx); Iron deficiency anemia, not otherwise specified 06/01/2024 Travel 06/01/2024 Orders Only [facility] [address] [facility], Floor 6 [place] [address] Marianela Hutchinson MD Adenocarcinoma of stomach (Primary Dx) 05/26/2024 Telephone [facility] - Gastroenterology, Hepatology & Nutrition 1515 [facility] [place] Main [facility], 7th [place] [address] Arnaldo Araujo PA-C 05/22/2024 Telephone [facility] - Gastroenterology, Hepatology & Nutrition [address] [facility] [place] Main [facility], 7th [place] [address] Arnaldo Araujo PA-C 05/22/2024 Orders Only [facility] - Gastroenterology, Hepatology & Nutrition [address] [place] [address] Main [facility], 7th [place] [address] Arnaldo Araujo PA-C Candidal esophagitis (Primary Dx) 05/20/2024 4:30 PM CONING MACHINE OPERATOR - 05/20/2024 11:59 PM CONING MACHINE OPERATOR Hospital Encounter Ambulatory Treatment Center - [address], 2nd Floor, [place] [address] Marianela Hutchinson MD Lewandowski, Teresa M RN Adenocarcinoma of stomach Discharge Disposition: Home 05/19/2024 12:44 PM CONING MACHINE OPERATOR Anesthesia Event Endoscopy Center [address] [place] [address], 5th [place] [address] Maurice Ferrera MD [facility] 05/19/2024 12:00 PM CONING MACHINE OPERATOR - 05/19/2024 1:10 PM CONING MACHINE OPERATOR Surgery Endoscopy Center [address] [place] [address], 5th [place] [address] Brandon Alcala MD UPPER GASTROINTESTINAL ENDOSCOPY OF ESOPHAGUS, STOMACH, OR DUODENUM ANDJ ADJACENT STRUCTURES, WITH ENDOSCOPIC ULTRASOUND EXAMINATION 05/19/2024 11:17 AM CONING MACHINE OPERATOR - 05/19/2024 2:49 PM CONING MACHINE OPERATOR Hospital Encounter Endoscopy Center [address] [place] [address] Main [facility], 5th [place] [address] Brandon Alcala MD Adenocarcinoma of stomach Discharge Disposition: Home 05/19/2024 Travel 05/18/2024 1:00 PM CONING MACHINE OPERATOR Infusion [facility] - [facility] [address] [facility], Floor 6 [place] [address] Marianela Hutchinson MD Rupp, Alexa B, RN Adenocarcinoma of stomach (Primary Dx) 05/18/2024 12:20 PM CONING MACHINE OPERATOR Follow-Up [facility] [address] [place] [address], [facility] [place] [address] Marianela Hutchinson MD Adenocarcinoma, NOS of stomach, NOS 05/18/2024 11:00 AM CONING MACHINE OPERATOR POEM Appointments Perioperative Evaluation and Management Center [address] [place] [address], [facility] [place] [address] Marianela Hutchinson MD 05/18/2024 10:32 AM CONING MACHINE OPERATOR - 05/18/2024 11:59 PM CONING MACHINE OPERATOR Hospital Encounter Diagnostic Laboratory Center [address] [place] [address], [place] [address] Gillian Gomez PA-C Adenocarcinoma, NOS of stomach, NOS Discharge Disposition: Home 05/18/2024 Orders Only [facility] [address] [place] [address], [address] [place] [address] [place] [address] Marianela Hutchinson MD Adenocarcinoma of stomach (Primary Dx) 05/18/2024 Orders Only [facility] [address] [place] [address], [facility] [place] [address] Radha Castellon, [facility] Adenocarcinoma of stomach (Primary Dx); Iron deficiency anemia, not otherwise specified 05/18/2024 Travel 05/15/2024 11:59 PM CONING MACHINE OPERATOR Anesthesia Event Perioperative Evaluation and Management Center [address] [place] [address], [address] [place] [address] [place] [address] Eri Lynne, RN 05/06/2024 5:30 PM CONING MACHINE OPERATOR [facility] [address] [facility], 8th [place] [address] Marianela Hutchinson MD Pagara, Leni S RN Adenocarcinoma of stomach 05/04/2024 12:36 PM CONING MACHINE OPERATOR - 05/04/2024 11:59 PM CONING MACHINE OPERATOR Hospital Encounter Ambulatory Treatment Center - Main Building [address] [place] [address], 2nd Floor, [place] [address] Gillian Gomez PA-C Jo, Edifia Sungsoon, RN Adenocarcinoma of stomach (Primary Dx) Discharge Disposition: Home 05/04/2024 12:20 PM CONING MACHINE OPERATOR Follow-Up [facility] [address] [place] [address], 7th [place] [address] Marianela Hutchinson MD Adenocarcinoma, NOS of stomach, NOS 05/04/2024 11:10 AM CONING MACHINE OPERATOR - 05/04/2024 12:35 PM CONING MACHINE OPERATOR Hospital Encounter Diagnostic Laboratory Center [address] [place] [address], [facility] [place] [address] Gillian Gomez PA-C Adenocarcinoma, NOS of stomach, NOS; Adenocarcinoma of stomach Discharge Disposition: Home 05/04/2024 Orders Only [facility] [address] [place] [address], 7th Floor Elevator [place] [phone] Marianela Hutchinson MD Adenocarcinoma of stomach (Primary Dx) 05/04/2024 Orders Only [facility] [address] [place] [address], 7th Floor Elevator [place] [phone] Radha Castellon Werner Adenocarcinoma of stomach (Primary Dx) 05/04/2024 Travel 04/30/2024 Orders Only [facility] - Surgical Oncology [address] [place] [address], 7th [place] [address] Mary Kay Santamaria APRN Adenocarcinoma of stomach (Primary Dx); Paroxysmal atrial fibrillation; Hyperlipidemia, not otherwise specified; Type 2 diabetes mellitus with hyperglycemia 04/27/2024 8:05 PM CONING MACHINE OPERATOR Ancillary Procedure Image Library [address] [place] [address] Cancer 04/27/2024 8:00 PM CONING MACHINE OPERATOR Ancillary Procedure Image Library [address] [place], [place] [id number] Cancer 04/27/2024 Orders Only [facility] [address] [place] [address], [facility] Floor Elevator [place] [phone] Donnell Van Adenocarcinoma of stomach (Primary Dx) 04/24/2024 Documentation Vascular Access and Procedures Center 12[address] [facility], 8th [place] [address] Mary Kay Santamaria, ASSISTANT DIRECTOR OF RESIDENCE LIFE 04/24/2024 Orders Only [facility] - Surgical Oncology [address] [place] [address], [facility] Floor Elevator [place] [phone] Mary Kay Santamaria, ASSISTANT DIRECTOR OF RESIDENCE LIFE Adenocarcinoma, NOS of stomach, NOS (Primary Dx) 04/24/2024 Telephone [facility] - Surgical Oncology [address] [place], [place] [address] Mary Kay Santamaria, ASSISTANT DIRECTOR OF RESIDENCE LIFE 04/22/2024 Lab Requisition [facility] Sincere Moralez MD Jain, Shilpa, MD 04/21/2024 Orders Only [facility] [address] [place] [address], [address] [place], [place] [id number] Gillian Gomez PA-C Adenocarcinoma, NOS of stomach, NOS (Primary Dx); Adenocarcinoma of stomach 04/16/2024 Telephone [facility] [address] [place] [address] 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, membership director Call 04/15/2024 10:09 AM CONING MACHINE OPERATOR Anesthesia Event MAIN OR [address] [place] [address] Meenakshi Crowe MD Miller, Wendy, PAXTON 04/15/2024 10:05 AM CONING MACHINE OPERATOR - 04/15/2024 1:25 PM CONING MACHINE OPERATOR Surgery MAIN OR [address] [place] [address] John Fong MD ROBOTIC ASSISTED SURGICAL LAPAROSCOPY 04/15/2024 7:32 AM CONING MACHINE OPERATOR - 04/15/2024 11:50 PM CONING MACHINE OPERATOR Hospital Encounter MAIN OR [address] [place] [address] John Fong MD Adenocarcinoma of stomach (Primary Dx) Discharge Disposition: Home 04/15/2024 Travel 04/14/2024 2:30 PM CONING MACHINE OPERATOR Consult [facility] - Surgical Oncology [address] [place] [address], 7th [place] [address] Gillian Gomez PA-C Badgwell, Brian, MD Adenocarcinoma, NOS of stomach, NOS (Primary Dx); Nausea 04/14/2024 Documentation [facility] - Surgical Oncology [address] [place] [address], 7th [place] [address] John Fong MD 04/13/2024 3:00 PM CONING MACHINE OPERATOR Consult [facility] [address] [place] [address], 7th [place] [address] Marianela Hutchinson MD Mass of stomach (Primary Dx) 04/13/2024 2:02 PM CONING MACHINE OPERATOR Anesthesia Event Perioperative Evaluation and Management Center [address] [place] [address], 6th [place] [address] Curtis Moctezuma PA 04/12/2024 8:22 AM CONING MACHINE OPERATOR - 04/12/2024 3:42 PM CONING MACHINE OPERATOR Emergency MAIN P06B [address] [place] [address] Nghia Zhu MD Elsayem, Ahmed, MD Nausea and vomiting (Primary Dx); Gastric cancer; Pancreatitis Discharge Disposition: Left Against Medical Advice 04/12/2024 Travel 04/09/2024 8:25 PM CONING MACHINE OPERATOR Ancillary Procedure Image Library [address] [place] [address] Margoth Souza MD Cancer 04/09/2024 8:20 PM CONING MACHINE OPERATOR Ancillary Procedure Image Library [address] [place] [address] Margoth Souza MD Cancer 04/09/2024 8:15 PM CONING MACHINE OPERATOR Ancillary Procedure Image Library [address] [place] [address] Margoth Souza MD Cancer 04/09/2024 8:10 PM CONING MACHINE OPERATOR Ancillary Procedure Image Library [address] [place] [address] Margoth Souza MD Cancer 04/09/2024 8:05 PM CONING MACHINE OPERATOR Ancillary Procedure Image Library [address] [place] [address] Margoth Souza MD Cancer 04/09/2024 8:00 PM CONING MACHINE OPERATOR Ancillary Procedure Image Library [address] [place] [address] Margoth Souza MD Cancer 04/09/2024 10:48 AM CONING MACHINE OPERATOR - 04/09/2024 11:59 PM CONING MACHINE OPERATOR Hospital Encounter Diagnostic Laboratory Center [address] [place] [address], [place] [address] Ceci Nicholson MD Encounter for other preprocedural examination; Atherosclerosis of coronary 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, not otherwise specified; 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 Discharge Disposition: Home 04/09/2024 10:00 AM CONING MACHINE OPERATOR POEM Appointments Perioperative Evaluation and Management Center [address] [place] [address], 6th [place] [address] Margoth Souza MD 04/09/2024 9:56 AM CONING MACHINE OPERATOR - 04/09/2024 10:47 AM CONING MACHINE OPERATOR Hospital Encounter [facility] - Cardiology [address] [place] [address], 2nd [place] [address] Ceci Nicholson MD Adenocarcinoma of stomach; Hyperlipidemia, not otherwise specified; Encounter for other preprocedural examination; Atherosclerosis of coronary 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, not otherwise specified Discharge Disposition: Home 04/09/2024 9:00 AM CONING MACHINE OPERATOR Consult Perioperative Evaluation and Management [address] [place] [address], 6th [place] [address] Mary Kay Santamaria APRN Misoi, Mercy W, MD Encounter for other preprocedural examination (Primary Dx); Adenocarcinoma of stomach; Paroxysmal atrial fibrillation; Hypertension; 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; Hyperlipidemia, not otherwise specified; Current use of 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; Atherosclerosis of coronary 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, not otherwise specified 04/09/2024 Travel 04/08/2024 Prep for Surgery [facility] - Surgical Oncology [address] [place] [address], [address] [place] [address] [place] [address] Mary Kay Santamaria APRN Adenocarcinoma of stomach (Primary Dx); Mass of stomach 04/08/2024 Orders Only [facility] - Surgical Oncology [address] [place] [address], [address] [place] [address] [place] [address] Mary Kay Santamaria APRN Adenocarcinoma of stomach (Primary Dx); Paroxysmal atrial fibrillation; Hypertension; 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; Hyperlipidemia, not otherwise specified; Current use of 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 04/08/2024 Orders Only [facility] [address] [place] [address], [address] [place], [place] [address] [address] Gillian Gomez PA-C Adenocarcinoma, NOS of stomach, NOS (Primary Dx) 04/06/2024 Orders Only Genitourinary Cancer [address], [facility] [place] [address] Roberto Poole PA 04/06/2024 [facility] [address], [facility] [place] [address] Roberto Poole PA Mass of stomach (Primary Dx) 04/06/2024 Orders Only [facility] [address] [place] [address], [facility] [place] [address] Roberto Poole PA Mass of stomach (Primary Dx) 04/06/2024 Telephone [facility] [address] [place] [address], [facility] [place] [address] Anais Meng RN 02/11/2024 Travel 02/10/2024 3:30 PM CDT Telemedicine [facility] [address] [place] [address], 7th [place] [address] Margoth Souza MD Renal mass (Primary Dx) 01/02/2024 7:15 AM CDT Ancillary Procedure MAIN OR [address] [place] [address] Margoth Souza MD 01/02/2024 7:00 AM CDT - 01/02/2024 11:40 AM CDT Surgery MAIN OR [address] [place] [address] Margoth Souza MD ROBOTIC ASSISTED PARTIAL NEPHRECTOMY 01/02/2024 6:58 AM CDT Anesthesia Event MAIN OR [address] [place] [address] Alonzo Liu MD Majekodumi, Jessy, PAXTON 01/02/2024 5:04 AM CDT - 01/03/2024 5:05 PM CDT Hospital Encounter MAIN P09B [address] [place] [address] Margoth Souza MD Renal mass (Primary Dx) Discharge Disposition: Home 01/02/2024 Travel 12/31/2023 1:04 PM CDT - 12/31/2023 11:59 PM CDT Hospital Encounter Main CT IMAGING [address] [place] [address], 3rd [place] [address] Margoth Souza MD Renal mass Discharge Disposition: Home 12/31/2023 8:00 AM CDT Consult Endocrine Center [address] [place] [address], 6th [place] [address] Nakia Kirby APRN Khan, Sonya, MD Type 2 diabetes mellitus with hyperglycemia [E11.65] (Primary Dx); Pre-surgery evaluation 12/30/2023 9:30 AM CDT Office Visit [facility] [address] [place] [address], 7th [place] [address] Margoth Souza MD Renal mass 12/30/2023 Travel 12/30/2023 Telephone Endocrine Center [address] [place] [address], 6th [place] [address] Winnie Archibald, RN Appointment (Cannot get internet-phone broke) 12/30/2023 Orders Only Genitourinary Cancer Center [address] [facility], 7th [place] [address] Roberto Poole PA Renal mass (Primary Dx) 12/29/2023 Orders Only Endocrine Center [address] [place] [address], [facility] [place] [address] Veronica Del Castillo APRN 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); Endocrine/metabolic screening; Renal cell carcinoma <Left side> 12/25/2023 8:36 AM CDT Anesthesia Event [facility] [address] [place], [place] [address] [address] Lien Antonio RN 12/23/2023 10:30 AM CDT Consult Perioperative Evaluation and Management [address] [place], [place] [address] [address] Margoth Souza MD Oh, Jeong, MD Encounter for other preprocedural examination (Primary Dx); Renal mass; Hyperlipidemia, not otherwise specified 12/23/2023 9:00 AM CDT POEM Appointments [facility] [address] [place] [address], [address] [place], [place] [address] [address] Margoth Souza MD Pre-surgery evaluation (Primary Dx) 12/23/2023 8:45 AM CDT - 12/23/2023 11:59 PM CDT Hospital Encounter [facility] [address] [place] [address] Margoth Souza MD Renal mass Discharge Disposition: Home 12/23/2023 Travel 12/09/2023 9:33 AM CDT - 12/09/2023 11:59 PM CDT Hospital Encounter [facility] [address] [place] [address] Veronica Del Castillo APRN 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; Endocrine/metabolic screening Discharge Disposition: Home 12/09/2023 8:30 AM CDT Consult Endocrine Center [address] [facility], 6th [place] [address] Mary Jane Cassidy MD 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); Endocrine/metabolic screening; Renal cell carcinoma <Left side> 12/09/2023 Travel 10/23/2023 Orders Only Genitourinary Cancer Center [address] [facility], 7th [place] [address] Roberto Poole PA Renal mass (Primary Dx); Adrenal mass 10/03/2023 9:30 AM CDT - 10/03/2023 11:59 PM CDT Hospital Encounter Interventional Radiology [address] [place] [address], 4th [place] [address] Shazia Arriaza MD McRae, Stephen, MD Renal mass Discharge Disposition: Home 10/03/2023 8:30 AM CDT - 10/03/2023 9:29 AM CDT Hospital Encounter [facility] [address] [place] [address] Margoth Souza MD Renal mass Discharge Disposition: Home 10/03/2023 Travel 10/02/2023 8:24 AM CDT - 10/02/2023 11:59 PM CDT Hospital Encounter Interventional Radiology [address] [place] [address], 4th [place] [address] Margoth Souza MD Ho, Thanh-Trang D, PA-C Encounter for other preprocedural examination (Primary Dx); Renal mass; 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 Discharge Disposition: Home 10/02/2023 Travel 09/24/2023 7:46 AM CDT - 09/24/2023 11:59 PM CDT Hospital Encounter [facility] [address] [place] [address] Roberto Poole PA Adrenal mass Discharge Disposition: Home 09/20/2023 Orders Only [facility] Cancer [facility] [address] [place] [address], 7th [place] [address] Roberto Poole PA Adrenal mass (Primary Dx) 09/19/2023 11:45 AM CDT Ancillary Procedure X-Ray Outpatient Center [address] [place] [address], [facility] Floor [facility] [place] [address] Shazia Arriaza MD Renal mass 09/19/2023 9:20 AM CDT - 09/19/2023 11:59 PM CDT Hospital Encounter [facility] [address] [place] [address] Shazia Arriaza MD Adenoma, NOS of adrenal gland, NOS <Left> Discharge Disposition: Home 09/19/2023 Orders Only Interventional Radiology [address] [place] [address], 4th [place] [address] Abilio Ng PA-C Renal mass (Primary Dx) 09/19/2023 Travel 09/19/2023 Telephone MD Gim[facility] [address] [place] [address] Barbara Rees MA 09/16/2023 4:00 PM CDT - 09/16/2023 11:59 PM CDT Hospital Encounter [facility] [address] [place] [address] Shazia Arriaza MD Renal mass; Adrenal mass Discharge Disposition: Home 09/16/2023 2:00 PM CDT Office Visit [facility] [address] [place] [address], 7th [place] [address] Margoth Souza MD Renal mass (Primary Dx); Adrenal mass; Adenoma, NOS of adrenal gland, NOS <Left>; 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 09/16/2023 12:30 PM CDT NPR MDA PATIENT ACCESS 09/16/2023 Travel 08/08/2023 8:00 PM CDT Ancillary Procedure [facility] [address] [place] [address] Margoth Souza MD Cancer 08/08/2023 6:40 AM CDT Ancillary Procedure [facility] [address] [place] [address] Margoth Souza MD Cancer after 07/16/2023 Surgical History Surgery Date Site/Laterality Comments TOE AMPUTATION x2, 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, 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 APPENDECTOMY 05/20/1973 - 05/19/1974 Open WRIST SURGERY Left HAND SURGERY Right HIP ARTHRODESIS W/ ILIAC CRE ST BONE GRAFT Bilateral For hand surgeries CERVICAL SPINE SURGERY C3-6 fusion, x2 WV LAPAROSCOPY SURG PARTIAL NEPHRECTOMY 01/02/2024 Abdomen/Left Procedure: ROBOTIC ASSISTED PARTIAL NEPHRECTOMY; Surgeon: Margoth Souza MD; Location: MAIN OR; Service: UROLOGY G ULTRASONIC GUIDANCE INTRAOPERATIVE 01/02/2024 Left Procedure: INTROPERATIVE ULTRASOUND - PERFORMED BY SURGEON; Surgeon: Margoth Souza MD; Location: MAIN OR; Service: UROLOGY CORONARY ARTERY BYPASS GRAFT 01/07/2024 WV LAPS ABD PRTM&OMENTUM DX W/WO SPEC BR/WA SPX 04/15/2024 Abdomen/N/A Procedure: ROBOTIC ASSISTED SURGICAL LAPAROSCOPY; Surgeon: John Fong MD; Location: MAIN OR; Service: SURG ONC - GASTRIC/HIPEC Medical devices from this surgery are in the Medical Devices section. [facility] FLUORO CENTRAL VENOUS AC CESS DEV PLACEMENT 04/15/2024 Neck/N/A Procedure: FLUORO GUIDANCE FOR CENTRAL VENOUS ACCESS DEVICE PLACEMENT, REPLACEMENT, OR REMOVAL; Surgeon: John Fong MD; Location: MAIN OR; Service: SURG ONC - GASTRIC/HIPEC Medical devices from this surgery are in the Medical Devices section. [facility] US VASC ACCESS SITS VSL PATENCY NDL ENTRY 04/15/2024 N/A Procedure: US GUIDANCE WITH EVAL OF POTENTIAL ACCESS SITES, REALTIME US VISUALIZATION OF VASC NEEDLE ENTRY; Surgeon: John Fong MD; Location: MAIN OR; Service: SURG ONC - GASTRIC/HIPEC Medical devices from this surgery are in the Medical Devices section. WV INSJ TUNNELED CTR VAD W/S UBQ PORT AGE 5 YR/> 04/15/2024 Neck/N/A Procedure: PORT-A-CATH PLACEMENT; Surgeon: John Fong MD; Location: MAIN OR; Service: SURG ONC - GASTRIC/HIPEC Medical devices from this surgery are in the Medical Devices section. 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 Gender Identity Not on file Sexual Orientation Not on file Occupation Industry Job Start Date Job End Date retired from [employer] Not on file N ot on file Not on file Travel History Travel Start Travel End [place] 04/12/2024 04/12/2024 Obstetrics History Last Filed Vital Signs Vital Sign Reading Time Taken Comments Blood Pressure 181/94 07/02/2024 10:23 AM CONING MACHINE OPERATOR Pulse 71 07/02/2024 10:23 AM CONING MACHINE OPERATOR Temperature 36.1 C (97 F) 06/30/2024 1:35 PM CONING MACHINE OPERATOR Respiratory Rate 18 07/02/2024 10:23 AM CONING MACHINE OPERATOR Oxygen Saturation 99% 07/02/2024 10:23 AM CONING MACHINE OPERATOR Inhaled Oxygen Concentration - - Weight 84.2 kg (185 lb 10 oz) 06/30/2024 10:35 A M CONING MACHINE OPERATOR Height 188 cm (6' 2") 05/19/2024 11:53 AM CONING MACHINE OPERATOR Body Mass Index 23.83 05/19/2024 11:53 AM CONING MACHINE OPERATOR Plan of Treatment Upcoming Encounters Date Type Department Care Team (Late st Contact Info) Description 07/16/2024 2:40 PM CONING MACHINE OPERATOR Follow-Up Gastrointestinal Center [address] [place] [address], 7th [place] [address] Marianela Hutchinson MD [address] [place] [phone] [email or web address] 02/01/2025 11:30 AM CDT Appointment Diagnostic Laboratory [facility] [address] [place] [address], [place] [address] Veronica Del Castillo, ASSISTANT DIRECTOR OF RESIDENCE LIFE [address] [place] [address] [email or web address] 02/01/2025 11:45 AM CDT Appointment Main CT IMAGING [address] [place] [address], 3rd [place] [address] Veronica Del Castillo, ASSISTANT DIRECTOR OF RESIDENCE LIFE [address] [place] [address] [email or web address] 02/01/2025 3:00 PM CDT Follow-Up Endocrine Center [address] [place] [address], 6th [place] [address] Mary Jane Cassidy MD [address] [place] [phone] [email or web address] 02/05/2025 10:45 AM CDT Lab [facility] Cancer Center [address] [place] [address], [facility] [place] [address] Margoth Souza MD [address] [place] [address] [email or web address] 02/05/2025 11:15 AM CDT Ancillary Procedure X-Ray Outpatient Center [address] [place] [address], [address] [place] [address] Margoth Souza MD [address] [place] [address] [email or web address] 02/05/2025 11:55 AM CDT Ancillary Procedure CT Imaging [address] [place] [address], [address] [place] [address] Margoth Souza MD [address] [place] [address] [email or web address] 02/08/2025 2:30 PM CDT Telemedicine [facility] Cancer Center [address] [place] [address], [address] [place] [address] Margoth Souza MD [address] [place] [phone] [email or web address] Health Maintenance Due Date Last Done Comments COVID-19 Vaccine (#1) 01/09/1969 Pneumococcal Vaccine: 50+ Years (1 of 2 - PCV) 983 01/09/1975 Influenza Vaccine (#1) 2024 08/04/2018 Medical Devices Implanted Type Area [employer] Officer Device Identifier Shelf Expiration Date Model / Serial / Lot Slade Muhammad 6fr - [id number] Implanted:Qty: 1 on 04/15/2024 by John Fong MD at [facility] Implant Right: Neck [employer] 12/17/2024 [id number] / / [id number] Procedures Procedure Name Priority Date/Time Associated Diagnosis Comments CT CHEST ABDOMEN PELVIS W CONTRAST Routine 07/15/2024 4:38 PM CONING MACHINE OPERATOR Adenocarcinoma of stomach .CBC Routine 07/15/2024 10:01 AM CONING MACHINE OPERATOR Adenocarcinoma of stomach CARCINOEMBRYONIC ANTIGEN Routine 025 10:01 AM CONING MACHINE OPERATOR Adenocarcinoma of stomach LACTATE DEHYDROGENASE Routine 07/15/2024 10:01 AM CONING MACHINE OPERATOR Adenocarcinoma of stomach PHOSPHORUS LEVEL Routine 07/15/2024 10:01 AM CONING MACHINE OPERATOR Adenocarcinoma of stomach MAGNESIUM LEVEL Routine 07/15/2024 10:01 AM CONING MACHINE OPERATOR Adenocarcinoma of stomach COMPREHENSIVE METABOLIC PANEL Routine 10:01 AM CONING MACHINE OPERATOR Adenocarcinoma of stomach COMPLETE BLOOD COUNT W/ DIFFERENTIAL Routine 07/15/2024 10:01 AM CONING MACHINE OPERATOR Adenocarcinoma of stomach RESEARCH PROTOCOL [id number] Routine 07/15 10:01 AM CONING MACHINE OPERATOR Adenocarcinoma of stomach MDA AP IHC WORKUP Routine 07/07/2024 12:29 PM CONING MACHINE OPERATOR Adenocarcinoma of stomach POC GLUCOSE SCREEN Routine 06/30/2024 1:23 PM CONING MACHINE OPERATOR PATHOLOGY BIOPSY INTERPRETATION Routine 06/30/2024 12:51 PM CONING MACHINE OPERATOR Adenocarcinoma of stomach WV ESOPHAGOGASTRODUODENOSCOP Y TRANSORAL DIAGNOSTIC 06/30/2024 12:15 PM CONING MACHINE OPERATOR Adenocarcinoma of stomach Case Notes 06/12 per gene to schedule on 06/30, per tor to schedule 06/30 thru lunch last AM case, slot held to offer. 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 POC CHEM 8 Routine 06/30/2024 11:10 AM CONING MACHINE OPERATOR POC GLUCOSE SCREEN Routine 06/30/2024 10:52 AM CONING MACHINE OPERATOR POC CHEM 8 Routine 06/29/2024 9:54 AM CONING MACHINE OPERATOR EKG, 12-LEAD (SCHEDULED) Routine 06/29/2024 Adenocarcinoma of stomach PETCT F18 FDG (FLUORODEOXYGLUCOSE) WITH CONTRAST Routine 06/20/2024 12:42 PM CONING MACHINE OPERATOR Adenocarcinoma, NOS of stomach, NOS Malignant neoplasm of overlapping sites of esophagus POC GLUCOSE SCREEN Routine 06/20/2024 11:06 AM CONING MACHINE OPERATOR .CBC Routine 06/20/2024 10:35 AM CONING MACHINE OPERATOR Adenocarcinoma, NOS of stomach, NOS CARCINOEMBRYONIC ANTIGEN Routine 025 10:35 AM CONING MACHINE OPERATOR Adenocarcinoma, NOS of stomach, NOS LACTATE DEHYDROGENASE Routine 06/20/2024 10:35 AM CONING MACHINE OPERATOR Adenocarcinoma, NOS of stomach, NOS PHOSPHORUS LEVEL Routine 06/20/2024 10:35 AM CONING MACHINE OPERATOR Adenocarcinoma, NOS of stomach, NOS MAGNESIUM LEVEL Routine 06/20/2024 10:35 AM CONING MACHINE OPERATOR Adenocarcinoma, NOS of stomach, NOS COMPREHENSIVE METABOLIC PANEL Routine 10:35 AM CONING MACHINE OPERATOR Adenocarcinoma, NOS of stomach, NOS COMPLETE BLOOD COUNT W/ DIFFERENTIAL Routine 06/20/2024 10:35 AM CONING MACHINE OPERATOR Adenocarcinoma, NOS of stomach, NOS .CBC Routine 06/15/2024 10:39 AM CONING MACHINE OPERATOR Adenocarcinoma of stomach CARCINOEMBRYONIC ANTIGEN Routine 025 10:39 AM CONING MACHINE OPERATOR Adenocarcinoma, NOS of stomach, NOS LACTATE DEHYDROGENASE Routine 06/15/2024 10:39 AM CONING MACHINE OPERATOR Adenocarcinoma, NOS of stomach, NOS PHOSPHORUS LEVEL Routine 06/15/2024 10:39 AM CONING MACHINE OPERATOR Adenocarcinoma, NOS of stomach, NOS MAGNESIUM LEVEL Routine 06/15/2024 10:39 AM CONING MACHINE OPERATOR Adenocarcinoma, NOS of stomach, NOS COMPREHENSIVE METABOLIC PANEL Routine 10:39 AM CONING MACHINE OPERATOR Adenocarcinoma of stomach COMPLETE BLOOD COUNT W/ DIFFERENTIAL Routine 06/15/2024 10:39 AM CONING MACHINE OPERATOR Adenocarcinoma of stomach .CBC Routine 06/01/2024 11:10 AM CONING MACHINE OPERATOR Adenocarcinoma of stomach TRANSFERRIN Routine 06/01/2024 11:10 AM CONING MACHINE OPERATOR Iron deficiency anemia, not otherwise specified Adenocarcinoma of stomach FERRITIN Routine 06/01/2024 11:10 AM CONING MACHINE OPERATOR Iron deficiency anemia, not otherwise specified Adenocarcinoma of stomach IRON LEVEL Routine 06/01/2024 11:10 AM CONING MACHINE OPERATOR Iron deficiency anemia, not otherwise specified Adenocarcinoma of stomach COMPREHENSIVE METABOLIC PANEL Routine 11:10 AM CONING MACHINE OPERATOR Adenocarcinoma of stomach COMPLETE BLOOD COUNT W/ DIFFERENTIAL Routine 06/01/2024 11:10 AM CONING MACHINE OPERATOR Adenocarcinoma of stomach POC GLUCOSE SCREEN Routine 05/19/2024 1:52 PM CONING MACHINE OPERATOR PATHOLOGY BIOPSY INTERPRETATION Routine 05/19/2024 1:10 PM CONING MACHINE OPERATOR Adenocarcinoma of stomach WV ESOPHAGOGASTRODUODENOSCOP Y US SCOPE W/ADJ STRXRS 05/19/2024 12:34 PM CONING MACHINE OPERATOR Adenocarcinoma of stomach Case Notes 04/24- WAITING FOR TRIAGE TO [place] FOR 05/01- Special Needs [employer] [place] Call Completed 04/30/24ad laproscopy on 04/15/24 POC GLUCOSE SCREEN Routine 05/19/2024 12:21 PM CONING MACHINE OPERATOR .CBC Routine 05/18/2024 10:55 AM CONING MACHINE OPERATOR Adenocarcinoma, NOS of stomach, NOS CARCINOEMBRYONIC ANTIGEN Routine 024 10:55 AM CONING MACHINE OPERATOR Adenocarcinoma, NOS of stomach, NOS LACTATE DEHYDROGENASE Routine 05/18/2024 10:55 AM CONING MACHINE OPERATOR Adenocarcinoma, NOS of stomach, NOS PHOSPHORUS LEVEL Routine 05/18/2024 10:55 AM CONING MACHINE OPERATOR Adenocarcinoma, NOS of stomach, NOS MAGNESIUM LEVEL Routine 05/18/2024 10:55 AM CONING MACHINE OPERATOR Adenocarcinoma, NOS of stomach, NOS COMPREHENSIVE METABOLIC PANEL Routine 10:55 AM CONING MACHINE OPERATOR Adenocarcinoma, NOS of stomach, NOS COMPLETE BLOOD COUNT W/ DIFFERENTIAL Routine 05/18/2024 10:55 AM CONING MACHINE OPERATOR Adenocarcinoma, NOS of stomach, NOS .CBC Routine 05/04/2024 11:34 AM CONING MACHINE OPERATOR Adenocarcinoma, NOS of stomach, NOS RESEARCH PROTOCOL [id number] Routine 05/04 11:34 AM CONING MACHINE OPERATOR Adenocarcinoma of stomach CARCINOEMBRYONIC ANTIGEN Routine 024 11:34 AM CONING MACHINE OPERATOR Adenocarcinoma, NOS of stomach, NOS LACTATE DEHYDROGENASE Routine 05/04/2024 11:34 AM CONING MACHINE OPERATOR Adenocarcinoma, NOS of stomach, NOS PHOSPHORUS LEVEL Routine 05/04/2024 11:34 AM CONING MACHINE OPERATOR Adenocarcinoma, NOS of stomach, NOS MAGNESIUM LEVEL Routine 05/04/2024 11:34 AM CONING MACHINE OPERATOR Adenocarcinoma, NOS of stomach, NOS COMPREHENSIVE METABOLIC PANEL Routine 11:34 AM CONING MACHINE OPERATOR Adenocarcinoma, NOS of stomach, NOS COMPLETE BLOOD COUNT W/ DIFFERENTIAL Routine 05/04/2024 11:34 AM CONING MACHINE OPERATOR Adenocarcinoma, NOS of stomach, NOS VERIFY CATHETER TIP PLACEMENT Routine 3:50 PM CONING MACHINE OPERATOR Adenocarcinoma of stomach POC GLUCOSE SCREEN Routine 04/15/2024 3:21 PM CONING MACHINE OPERATOR XR CHEST 1 VW PORTABLE Routine 2:45 PM CONING MACHINE OPERATOR POC GLUCOSE SCREEN Routine 04/15/2024 1:05 PM CONING MACHINE OPERATOR POC GLUCOSE SCREEN Routine 04/15/2024 12:52 PM CONING MACHINE OPERATOR CYTOLOGY NON-ELECTRIFICATION ADVISER INTERPRETATION Routine 04/15/2024 12:33 PM CONING MACHINE OPERATOR Adenocarcinoma of stomach PATHOLOGY SURGICAL INTERPRETATION Routine 04/15/2024 12:13 PM CONING MACHINE OPERATOR Adenocarcinoma of stomach FL CENTRAL VENOUS PLACE EXCHANGE Routine 04/15/2024 11:40 AM CONING MACHINE OPERATOR Adenocarcinoma of stomach POC GLUCOSE SCREEN Routine 04/15/2024 9:22 AM CONING MACHINE OPERATOR WV INSJ TUNNELED CTR VAD W/SUBQ PORT AGE 5 YR/> 04/15/2024 9:16 AM CONING MACHINE OPERATOR Adenocarcinoma of stomach Special Needs MTL@0800 CHG US VASC ACCESS SITS VSL PATENCY NDL ENTRY 04/15/2024 9:16 AM CONING MACHINE OPERATOR Adenocarcinoma of stomach Special Needs MTL@0800 CHG FLUORO CENTRAL VENOUS ACCESS DEV PLACEMENT 04/15/2024 9:16 AM CONING MACHINE OPERATOR Adenocarcinoma of stomach Special Needs MTL@0800 WV LAPS ABD PRTM&OMENTUM DX W/WO SPEC BR/WA SPX 04/15/2024 9:16 AM CONING MACHINE OPERATOR Adenocarcinoma of stomach Special Needs MTL@0800 CT ABDOMEN PELVIS W CONTRAST Routine 11:18 AM CONING MACHINE OPERATOR .CBC Routine 04/12/2024 9:04 AM CONING MACHINE OPERATOR LIPASE LEVEL Routine 04/12/2024 9:04 AM CONING MACHINE OPERATOR AMYLASE LEVEL Routine 04/12/2024 9:04 AM CONING MACHINE OPERATOR LACTATE DEHYDROGENASE Routine 04/12/2024 9:04 AM CONING MACHINE OPERATOR FRACTIONATED BILIRUBIN Routine 9:04 AM CONING MACHINE OPERATOR PHOSPHORUS LEVEL Routine 04/12/2024 9:04 AM CONING MACHINE OPERATOR MAGNESIUM LEVEL Routine 04/12/2024 9:04 AM CONING MACHINE OPERATOR COMPREHENSIVE METABOLIC PANEL Routine 9:04 AM CONING MACHINE OPERATOR COMPLETE BLOOD COUNT W/ DIFFERENTIAL Routine 04/12/2024 9:04 AM CONING MACHINE OPERATOR .CBC Routine 04/09/2024 11:09 AM CONING MACHINE OPERATOR Encounter for other preprocedural examination Atherosclerosis of coronary 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, not otherwise specified THYROID STIMULATING HORMONE Routine 03/21 11:09 AM CONING MACHINE OPERATOR Encounter for other preprocedural examination Atherosclerosis of coronary 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, not otherwise specified HEMOGLOBIN A1C Routine 04/09/2024 11:09 AM CONING MACHINE OPERATOR 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 Encounter for other preprocedural examination COMPREHENSIVE METABOLIC PANEL Routine 11:09 AM CONING MACHINE OPERATOR Encounter for other preprocedural examination Atherosclerosis of coronary 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, not otherwise specified COMPLETE BLOOD COUNT W/ DIFFERENTIAL Routine 04/09/2024 11:09 AM CONING MACHINE OPERATOR Encounter for other preprocedural examination Atherosclerosis of coronary 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, not otherwise specified EKG, 12-LEAD (SCHEDULED) Routine 04/09/2024 Adenocarcinoma of stomach Hyperlipidemia, not otherwise specified Encounter for other preprocedural examination Atherosclerosis of coronary 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, not otherwise specified PATHOLOGY OUTSIDE INTERPRETATION Routine 04/02/[address] ABDOMEN AND PELVIS Routine 2023 8:21 AM CONING MACHINE OPERATOR Cancer OSI CHEST Routine 03/23/2024 7:37 PM CONING MACHINE OPERATOR Cancer OSI CT CHEST ABDOMEN PELVIS Routine 08/2023 7:37 PM CONING MACHINE OPERATOR Cancer OSI CHEST Routine 03/23/2024 7:37 PM CONING MACHINE OPERATOR Cancer OSI CT CHEST Routine 03/22/2024 8:21 AM CONING MACHINE OPERATOR Cancer OSI CT ABDOMEN AND PELVIS [...] AM CDT Renal mass Special Needs [id number]:Please collect and send tissue to pathology window with appropriate label. [place] LAPAROSCOPY SURG PARTIAL NEPHRECTOMY 01/02/2024 6:08 AM CDT Renal mass Special Needs [email or web address]:Please collect and send tissue to pathology window [...] ABDOMEN AND PELVIS Routine 2023 7:40 AM CONING MACHINE OPERATOR Cancer OSI CT BRAIN Routine 07/17/2023 7:40 AM CONING MACHINE OPERATOR Cancer after 07/16/2023 Results * CT Chest Abdomen Pelvis with Contrast (07/15/2024 4:38 PM CONING MACHINE OPERATOR) Anatomical Region Laterality Modality Abdomen, Pelvis, Chest Computed Tomography 07/15/2024 5:39 PM CONING MACHINE OPERATOR Impressions 07/15/2024 9:45 PM CONING MACHINE OPERATOR 1. Redemonstration of diffuse wall thickening of the distal thoracic esophagus and stomach without focal FDG uptake on the prior PET/CT study of 06/20/2024. 2. No definite CT evidence of metastatic disease in the chest, abdomen or pelvis. 3. Distended urinary bladder with persistent mild right-sided collecting system dilatation. 4. Other chronic/incidental findings, as above. ACTIONABLE ITEMS/RECOMMENDATIONS*: None. *An Actionable Finding is a finding that may be unrelated to the original reason for imaging but potentially actionable, meaning further investigation may be necessary. The Actionable Findings Vigilance Unit (AFVU) assists medical providers with responding to additional radiologic findings that are unexpected and potentially actionable. Narrative 07/15/2024 9:45 PM CONING MACHINE OPERATOR FULL RESULT: Examination: CT CHEST ABDOMEN PELVIS W CONTRAST on 07/15/2024 4:38 PM. Clinical History: Adenocarcinoma of stomach. Indication: Cancer staging or restaging. Comparison: PET/CT 06/20/[address] abdomen and pelvis 04/12/2024. Technique: CT CHEST ABDOMEN PELVIS W CONTRAST. Findings: CHEST: Lungs and Pleura: Left lower lobes subcentimeter calcified pulmonary nodules, likely calcified granulomas. No pleural effusion. Cardiomediastinum: The heart is normal in size. No pericardial effusion. Status post coronary artery bypass graft. Redemonstration of anterior mediastinal 1.9 cm fluid collection, series 3 image 49, possibly postoperative changes. Lymph nodes: Redemonstration of the borderline-enlarged right hilar lymph node measuring 1.1 cm in short axis. Other findings: Partially visualized right thyroid lobe 1 cm low-attenuation nodule, series 3 image 1. Evidence of prior sternotomy with median sternotomy wires. ABDOMEN AND PELVIS: Hepatobiliary: No suspicious hepatic lesion. No biliary dilatation. Cholelithiasis. No cholecystitis. Spleen: No splenomegaly. Pancreas: Atrophic changes of the pancreas. No mass or ductal dilatation. Adrenal Glands: Redemonstration of left adrenal 1.7 cm indeterminate nodule, series 3 image 195. The nodule was not FDG avid on prior PET/CT study. Normal appearance of the right adrenal gland. Kidneys, Ureters, Bladder: Redemonstration of postoperative changes in the superior pole of the left kidney with perinephric edema, mildly improved compared to prior. Redemonstration of mild dilatation of the right collecting system and right ureter. No suspicious renal lesion. Mildly distended urinary bladder. No bladder mass. Gastrointestinal Tract: Redemonstration of diffuse wall thickening of the stomach, most pronounced at the gastric pyloric region. No obstruction. Small hiatal hernia with nonspecific wall thickening of the distal thoracic esophagus. Pelvic Organs: Mildly enlarged prostate gland seen indenting the urinary bladder base. Peritoneum/Retroperitoneum: No ascites. Lymph Nodes: No lymphadenopathy. MUSCULOSKELETAL: No aggressive osseous lesions. Stable small sclerotic foci within the left acetabulum. Degenerative change of the spine. Redemonstration of compression deformity of L1 and L3 vertebral bodies. Stable appearance of the subcutaneous low-attenuation lesion in the mid upper back, series 3 image 27 measuring 1.9 cm, likely a sebaceous cyst. Procedure Note Ceferino Ling MD - 07/15/2024 FULL RESULT: Examination: CT CHEST ABDOMEN PELVIS W CONTRAST on 07/15/2024 4:38 PM. Clinical History: Adenocarcinoma of stomach. Indication: Cancer staging or restaging. Comparison: PET/CT 06/20/[address] abdomen and pelvis 04/12/2024. Technique: CT CHEST ABDOMEN PELVIS W CONTRAST. Findings: CHEST: Lungs and Pleura: Left lower lobes subcentimeter calcified pulmonarynodules, likely calcified granulomas. No pleural effusion. Cardiomediastinum: The heart is normal in size. No pericardial effusion.Status post coronary artery bypass graft. Redemonstration of anteriormediastinal 1.9 cm fluid collection, series 3 image 49, possiblypostoperative changes. Lymph nodes: Redemonstration of the borderline-enlarged right hilar lymphnode measuring 1.1 cm in short axis. Other findings: Partially visualized right thyroid lobe 1 cmlow-attenuation nodule, series 3 image 1. Evidence of prior sternotomywith median sternotomy wires. ABDOMEN AND PELVIS: Hepatobiliary: No suspicious hepatic lesion. No biliary dilatation.Cholelithiasis. No cholecystitis. Spleen: No splenomegaly. Pancreas: Atrophic changes of the pancreas. No mass or ductaldilatation. Adrenal Glands: Redemonstration of left adrenal 1.7 cm indeterminatenodule, series 3 image 195. The nodule was not FDG avid on prior PET/CTstudy. Normal appearance of the right adrenal gland. Kidneys, Ureters, Bladder: Redemonstration of postoperative changes in thesuperior pole of the left kidney with perinephric edema, mildly improvedcompared to prior. Redemonstration of mild dilatation of the rightcollecting system and right ureter. No suspicious renal lesion. Mildly distended urinary bladder. No bladder mass. Gastrointestinal Tract: Redemonstration of diffuse wall thickening of thestomach, most pronounced at the gastric pyloric region. No obstruction.Small hiatal hernia with nonspecific wall thickening of the distalthoracic esophagus. Pelvic Organs: Mildly enlarged prostate gland seen indenting the urinarybladder base. Peritoneum/Retroperitoneum: No ascites. Lymph Nodes: No lymphadenopathy. MUSCULOSKELETAL: No aggressive osseous lesions. Stable small sclerotic foci within the leftacetabulum. Degenerative change of the spine. Redemonstration ofcompression deformity of L1 and L3 vertebral bodies. Stable appearance ofthe subcutaneous low-attenuation lesion in the mid upper back, series 3image 27 measuring 1.9 cm, likely a sebaceous cyst. IMPRESSION: 1. Redemonstration of diffuse wall thickening of the distal thoracicesophagus and stomach without focal FDG uptake on the prior PET/CT studyof 06/20/2024. 2. No definite CT evidence of metastatic disease in the chest, abdomen orpelvis. 3. Distended urinary bladder with persistent mild right-sided collectingsystem dilatation. 4. Other chronic/incidental findings, as above. ACTIONABLE ITEMS/RECOMMENDATIONS*: None. *An Actionable Finding is a finding that may be unrelated to the originalreason for imaging but potentially actionable, meaning furtherinvestigation may be necessary. The Actionable Findings Vigilance Unit(AFVU) assists medical providers with responding to additional radiologicfindings that are unexpected and potentially actionable. Mary Kay Santamaria APRN IMG CT ORDERABLES Final Result * Research Protocol [id number] (07/15/2024 10:01 AM CONING MACHINE OPERATOR) Only the most recent of2 resultswithin the time period is included. Research Protocol Specimen Specimen Collected, Ready for Pickup. 07/15/2024 12:00 PM CONING MACHINE OPERATOR [facility] Blood Venipuncture / Unknown 07/15/2024 10:01 AM CONING MACHINE OPERATOR 07/15/2024 10:10 AM CONING MACHINE OPERATOR Marianela Hutchinson MD [facility] Z CODES Final Re sult [facility] Unless otherwise noted, all lab tests performed by: Division of Pathology and Laboratory Medicine [address] [place] [phone] * (ABNORMAL) .CBC (07/15/2024 10:01 AM [facility]) Only the most recent of11 resultswithin the time period is included. White Blood Cell 6.7 4.1 - 10.5 K/uL 07/15/2024 10:33 AM [facility] Red Blood Cell 4.91 4.30 - 6.04 M/uL 07/15/2024 10:33 AM [facility] Hemoglobin 12.4(L) 13.3 - 17.4 g/dL 07/15/2024 10:33 AM [facility] Hematocrit 37.8(L) 39.5 - 51.8 % 07/15/2024 10:33 AM [facility] Mean Cell Volume 77(L) 82 - 99 fL 07/15/2024 10:33 AM [facility] Mean Cell Hemoglobin 25.3(L) 26.6 - 33.2 pg 07/15/2024 10:33 AM [facility] Mean Cell Hemoglobin Concentration 32.8 31.1 - 35.2 g/dL 07/15/2024 10:33 AM [facility] RDW-SD 40.9 37.5 - 49.7 fL 07/15/2024 10:33 AM [facility] Red Cell Diameter Width 14.8 11.6 - 15.5 % 07/15/2024 10:33 AM [facility] Platelet 226 160 - 397 K/uL 07/15/2024 10:33 AM [facility] Mean Platelet Volume 9.6 9.1 - 12.6 fL 07/15/2024 10:33 AM [facility] INRBC 0.0 0.0 - 0.1 /100 WBC 07/15/2024 10:33 AM [facility] Comment: The INRBC (instrument NRBC) value reflects the enumeration of nucleated red blood cells contained in a 200uL sample of whole blood analyzed by the instrument. This value may differ from the NRBC value reported in a manual differential, which is based on a 100 cell differential. Neutrophil % 63.5 43.2 - 72.7 % 07/15/2024 10:33 AM [facility] Lymphocyte % 25.4 16.8 - 46.2 % 07/15/2024 10:33 AM [facility] Monocyte % 8.5 5.1 - 12.5 % 07/15/2024 10:33 AM [facility] Eosinophil % 2.1 0.4 - 6.3 % 07/15/2024 10:33 AM [facility] Basophil % 0.4 0.2 - 1.4 % 07/15/2024 10:33 AM [facility] IGRE % 0.1 0.1 - 1.5 % 07/15/2024 10:33 AM [facility] Comment:The IGRE% includes M etamyelocytes, Myelocytes and Promyelocytes. Neutrophil Abs 4.25 1.95 - 7.25 K/uL 07/15/2024 10:33 AM [facility] Lymphocyte Abs 1.70 1.01 - 3.24 K/uL 07/15/2024 10:33 AM [facility] Monocyte Abs 0.57 0.24 - 0.85 K/uL 07/15/2024 10:33 AM [facility] Eosinophil Abs 0.14 0.02 - 0.50 K/uL 07/15/2024 10:33 AM [facility] Basophil Abs 0.03 0.02 - 0.09 K/uL 07/15/2024 10:33 AM [facility] IG Abs 0.01 0.01 - 0.12 K/uL 07/15/2024 10:33 AM [facility] Blood Peripheral blood specimen / Unknown Venipuncture / Unknown 07/15/2024 10:01 AM [facility] 07/15/2024 10:09 AM [facility] Gillian Gomez PA-C LAB BLOOD ORDERABLES Final Result [facility] Unless otherwise noted, all lab tests performed by: Division of Pathology and Laboratory Medicine [address] [place] [phone] * (ABNORMAL) CMP (07/15/2024 10:01 AM [facility]) Only the most recent of10 resultswithin the time period is included. Bilirubin Total 0.4 0.0 - 1.2 mg/dL 07/15/2024 11:15 AM [facility] Comment:Indocyanine Green (I CG) may cause falsely elevated bilirubin results. Total and direct bilirubin must not be measured from samples containing indocyanine green. False elevation of total bilirubin can be seen in patients with IgG concentrations above 28 g/L. eGFR 98 >=60 mL/min/1. 73 sq. m 07/15/2024 11:15 AM [facility] Comment: The eGFRcr is calculated [...] G2 fulfill criteria for CKD. Tot Protein 8.2 6.4 - 8.3 gm/dL 07/15/2024 11:15 AM [facility] Calcium Level Total 9.6 8.2 - 10.2 mg/dL 07/15/2024 11:15 AM [facility] Alkaline Phosphatase 117 40 - 129 U/L 07/15/2024 11:15 AM [facility] Albumin Level 4.4 3.5 - 5.2 gm/dL 07/15/2024 11:15 AM [facility] AST 22 <=40 U/L 07/15/2024 11:15 AM [facility] ALT 13 <=41 U/L 07/15/2024 11:15 AM [facility] Sodium Level 138 136 - 145 mmol/L 07/15/2024 11:15 AM [facility] Potassium Level 4.1 3.4 - 4.5 mmol/L 07/15/2024 11:15 AM [facility] Chloride 101 98 - 107 mmol/L 07/15/2024 11:15 AM [facility] CO2 27 22 - 29 mmol/L 07/15/2024 11:15 AM [facility] Anion Gap 10 4 - 14 mmol/L 07/15/2024 11:15 AM [facility] Creatinine 0.90 0.67 - 1.17 mg/dL 07/15/2024 11:15 AM [facility] BUN 10 6 - 23 mg/dL 07/15/2024 11:15 AM [facility] Glucose Level 181(H) 70 - 99 mg/dL 07/15/2024 11:15 AM [facility] Comment: Effective 12/14/15, the glucose reference intervals have been updated based on [place] [employer] guidelines (Standards of Medical Care in Diabetes 2016. Diabetes Care 2016; 39: S13-S22). Fasting blood glucose: Normal: 70-99 mg/dL Impaired fasting glucose (increased risk for diabetes or pre-diabetes): 100-125 mg/dL Diabetes mellitus: >/=126 mg/dL Random blood glucose: Normal: 70-199 mg/dL Note: Random glucose >100 mg/dL is associated with increased risk for diabetes. Blood Peripheral blood specimen / Unknown Venipuncture / Unknown 07/15/2024 10:01 AM CONING MACHINE OPERATOR 07/15/2024 10:09 AM [facility] Gillian Gomez PA-C LAB BLOOD ORDERABLES Final Result [facility] Unless otherwise noted, all lab tests performed by: Division of Pathology and Laboratory Medicine [address] [place] [phone] * Phosphorus Level (07/15/2024 10:01 AM CONING MACHINE OPERATOR) Only the most recent of6 resultswithin the time period is included. Phosphorus Level 2.7 2.5 - 4.5 mg/dL 07/15/2024 11:15 AM CONING MACHINE OPERATOR [facility] Blood Peripheral blood specimen / Unknown Venipuncture / Unknown 07/15/2024 10:01 AM CONING MACHINE OPERATOR 07/15/2024 10:09 AM CONING MACHINE OPERATOR Gillian Gomez PA-C LAB BLOOD ORDERABLES Final Result Performing Organization Address City/[facility] de Phone Number [facility] Unless otherwise noted, all lab tests performed by: Division of Pathology and Laboratory Medicine [address] [place] [phone] * Magnesium Level (07/15/2024 10:01 AM CONING MACHINE OPERATOR) Only the most recent of6 resultswithin the time period is included. Magnesium Level 1.8 1.6 - 2.6 mg/dL 07/15/2024 11:15 AM CONING MACHINE OPERATOR [facility] Blood Peripheral blood specimen / Unknown Venipuncture / Unknown 07/15/2024 10:01 AM CONING MACHINE OPERATOR 07/15/2024 10:09 AM CONING MACHINE OPERATOR Gillian Gomez PA-C LAB BLOOD ORDERABLES Final Result Performing Organization Address City/[facility]/ZIP Co de Phone Number [facility] Unless otherwise noted, all lab tests performed by: Division of Pathology and Laboratory Medicine [address] [place] [phone] * LDH (07/15/2024 10:01 AM CONING MACHINE OPERATOR) Only the most recent of6 resultswithin the time period is included. LDH 202 135 - 225 U/L 07/15/2024 11:15 AM CONING MACHINE OPERATOR [facility] Blood Peripheral blood specimen / Unknown Venipuncture / Unknown 07/15/2024 10:01 AM CONING MACHINE OPERATOR 07/15/2024 10:09 AM CONING MACHINE OPERATOR Narrative [facility] - 07/15/2024 11:15 AM CONING MACHINE OPERATOR Results greater than 1651 U/L may not be reliable due to matrix effect with extended dilution as it exceeds the director of marketing and promotions's recommended limit. Caution should be exercised when interpreting such values and done in conjunction with clinical context. us Gillian Gomez PA-C LAB BLOOD ORDERABLES Final Result Performing Organization Address City/[facility] Co de Phone Number [facility] Unless otherwise noted, all lab tests performed by: Division of Pathology and Laboratory Medicine [address] [place] [phone] * CEA (07/15/2024 10:01 AM CONING MACHINE OPERATOR) Only the most recent of5 resultswithin the time period is included. Carcinoembryonic Antigen 3.0 <=3.8 ng/mL 07/15/2024 11:26 AM CONING MACHINE OPERATOR [facility] Blood Peripheral blood specimen / Unknown Venipuncture / Unknown 07/15/2024 10:01 AM CONING MACHINE OPERATOR 07/15/2024 10:09 AM CONING MACHINE OPERATOR Narrative [facility] - 07/15/2024 11:26 AM CONING MACHINE OPERATOR Reference Ranges (age 20-69 years): Non-smoker: <= 3.8 ng/mL Smoker: <= 5.5 ng/mL This test is measured by electrochemiluminescence immunoassay on [employer]el[employer] Nikki immunoassay analyzers. Results obtained in different methods are not interchangeable. us Gillian Gomez PA-C LAB BLOOD ORDERABLES Final Result Performing Organization Address [facility] Co de Phone Number [facility] Unless otherwise noted, all lab tests performed by: Division of Pathology and Laboratory Medicine [address] [place] [phone] * IHC Workup (07/07/2024 12:29 PM CONING MACHINE OPERATOR) Tissue 07/07/2024 12:2 9 PM CONING MACHINE OPERATOR 07/07/2024 12:29 PM CONING MACHINE OPERATOR Gillian Gomez PA-C [facility] BI[facility]ARKER ORDERABLE S Final Result Performing Organization Address [facility] Co de Phone Number [facility] [address] [address], * (ABNORMAL) POC Glucose Screen - Fingerstick (06/30/2024 1:23 PM CONING MACHINE OPERATOR) Only the most recent of24 resultswithin the time period is included. Pathologist [facility] Glucose Screen 168(H) 70 - 99 mg/dL 06/30/2024 1:25 PM CONING MACHINE OPERATOR [facility] POC Sample Type Capillary 06/30/2024 1:25 PM CONING MACHINE OPERATOR [facility] Blood 06/30/2024 1:23 PM CONING MACHINE OPERATOR 06/30/2024 1:25 PM CONING MACHINE OPERATOR Narrative [facility] - 06/30/2024 1:25 PM CONING MACHINE OPERATOR Capillary blood samples, e.g. obtained by [...] POCT ORDERABLES - DE VICE Final Result [facility] Unless otherwise noted, all lab tests performed by: Division of Pathology and Laboratory Medicine [address] [place] [phone] * Pathology Biopsy Interpretation (06/30/2024 12:51 PM CONING MACHINE OPERATOR) Only the most recent of3 resultswithin the time period is included. Pathologist [facility] Addendum 1 By immunohistochemistry, approximately 10% of the tumor cells show weakly to moderately cytoplasmic staining for claudin 18. By immunohistochemistry the combined positive score (CPS) for PD-L1 is <1. 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 07/10/2024 8:47 AM [facility] Gross Description A: Esophagus, lower esophageal ulcer at 37cm: Multiple soft light castillo tissue fragments, 0.7 x 0.6 x 0.1 cm in aggregate, entirely submitted in A1. ET 07/10/2024 8:47 AM [facility] Biomarker Block(s) Block for biomarker testing: A1 07/10/2024 8:47 AM [facility] Disclaimer "Some tests reported here may have been developed and performance characteristics determined by [facility] Pathology and Laboratory Medicine. These tests have not been specifically cleared or approved by the U.S. Food and Drug Administration. If applicable, controls were reviewed and showed appropriate reactivity." 07/10/2024 8:47 AM [facility] Tissue (Esophagus) 06/30/2024 12:51 PM CONING MACHINE OPERATOR 06/30/2024 2:51 PM CONING MACHINE OPERATOR us Brandon Galo MD LAB PATHOLOGY ORDERA BLES Edited Result - Final [id number] [place] [address], * (ABNORMAL) POC Chem 8 (06/30/2024 11:10 AM CONING MACHINE OPERATOR) Only the most recent of2 resultswithin the time period is included. POC Sodium 136(L) 138 - 146 mmol/L 06/30/2024 11:13 AM [facility] POC Potassium 4.5 3.5 - 4.9 mmol/L 06/30/2024 11:13 AM [facility] POC Chloride 100 98 - 109 mmol/L 06/30/2024 11:13 AM [facility] POC VTCO2 27 24 - 29 mmol/L 06/30/2024 11:13 AM [facility] POC Anion Gap 14 10 - 20 mmol/L 06/30/2024 11:13 AM [facility] POC BUN 30(H) 8 - 26 mg/dL 06/30/2024 11:13 AM [facility] POC Creatinine 1.1 0.6 - 1.3 mg/dL 06/30/2024 11:13 AM [facility] Comment:Medications, especia lly hydroxyurea or supplements, such as ascorbate, can interfere with test results causing a falsely and significantly higher result than expected. If a problem is suspected with a patient's result, a sample should be sent to the laboratory for confirmatory testing. POC I Glu 182(H) 70 - 99 mg/dL 06/30/2024 11:13 AM [facility] Comment:Medications, especia lly hydroxyurea or supplements, such as ascorbate, can interfere with test results causing a falsely and significantly higher result than expected. If a problem is suspected with a patient's result, a sample should be sent to the laboratory for confirmatory testing. POC Ionized Calcium 1.26 1.12 - 1.32 mmol/L 06/30/2024 11:13 AM [facility] POC Hct 39.0 38.0 - 51.0 % 06/30/2024 11:13 AM [facility] POC Hgb 13.3 12.0 - 17.0 gm/dL 06/30/2024 11:13 AM [facility] Comment:Hematocrit values fr om the iSTAT are [...] standard. POC Sample Type Venous 11:13 AM [facility] POC eGFR 77 >=60 mL/min/1.7 3 sq. m 06/30/2024 11:13 AM [facility] Comment: The eGFRcr is [...] for CKD. Blood 06/30/2024 11:1 0 AM CONING MACHINE OPERATOR 06/30/2024 11:13 AM CONING MACHINE OPERATOR Narrative [facility] - 06/30/2024 11:13 AM CONING MACHINE OPERATOR Method description: The i-STAT is an [...] measure analyte concentration by an electrochemical assay. Brandon Galo MD POCT ORDERABLES - DE VICE Final Result Performing Organization Address [facility] Co de Phone Number [facility] Unless otherwise noted, all lab tests performed by: Division of Pathology and Laboratory Medicine [address] [place] [phone] * EKG, 12-Lead (Scheduled) (06/29/2024) Only the most recent of3 resultswithin the time period is included. Mary Kay Santamaria APRN ECG ORDERABLES Final R esult Performing Organization Address [facility]/ZIP Co de Phone Number [facility] I[facility]G * PETCT F18 FDG (Fluorodeoxyglucose) with contrast (06/20/2024 12:42 PM CONING MACHINE OPERATOR) Anatomical Region Laterality Modality Whole Body Positron Emissio n Tomography (PET) 06/20/2024 3:10 PM CONING MACHINE OPERATOR Impressions 06/20/2024 4:38 PM CONING MACHINE OPERATOR Biopsy-proven malignancy in the region of [...] and potentially actionable. Narrative 06/20/2024 4:38 PM CONING MACHINE OPERATOR FULL RESULT: Examination: 18F-FDG-PET/CT with contrast, [...] unexpected and potentially actionable. Gillian Gomez PA-C IMG PETCT ORDERABLES Final Result * Transferrin with TIBC (06/01/2024 11:10 AM CONING MACHINE OPERATOR) Transferrin 211 200 - 360 mg/dL 06/01/2024 12:15 PM CONING MACHINE OPERATOR [facility] Total Iron Binding Capacity 295 250 - 450 mcg/dL 06/01/2024 12:15 PM CONING MACHINE OPERATOR [facility] Blood Peripheral blood specimen / Unknown Venipuncture / Unknown 06/01/2024 11:10 AM CONING MACHINE OPERATOR 06/01/2024 11:23 AM CONING MACHINE OPERATOR Marianela Hutchinson MD LAB BLOOD ORDERABLES Final Re sult [facility] Unless otherwise noted, all lab tests performed by: Division of Pathology and Laboratory Medicine [address] [place] [phone] * (ABNORMAL) Iron Level (06/01/2024 11:10 AM CONING MACHINE OPERATOR) Iron Level 38(L) 59 - 158 mcg/dL 06/01/2024 12:15 PM CONING MACHINE OPERATOR [facility] Is patient fasting? No 06/01/2024 12:15 PM CONING MACHINE OPERATOR [facility] Blood Peripheral blood specimen / Unknown Venipuncture / Unknown 06/01/2024 11:10 AM CONING MACHINE OPERATOR 06/01/2024 11:23 AM CONING MACHINE OPERATOR Marianela Hutchinson MD LAB BLOOD ORDERABLES Final Re sult Performing Organization Address [facility] Co de Phone Number [facility] Unless otherwise noted, all lab tests performed by: Division of Pathology and Laboratory Medicine [address] [place] [address] Unless otherwise noted, all lab tests performed by: Division of Pathology and Laboratory Medicine [address] [place] [address] * Ferritin Level (06/01/2024 11:10 AM CONING MACHINE OPERATOR) Ferritin Level 59 30 - 400 ng/mL 06/01/2024 12:15 PM CONING MACHINE OPERATOR [facility] Blood Peripheral blood specimen / Unknown Venipuncture / Unknown 06/01/2024 11:10 AM CONING MACHINE OPERATOR 06/01/2024 11:23 AM CONING MACHINE OPERATOR Narrative [facility] - 06/01/2024 12:15 PM CONING MACHINE OPERATOR Reference range established for age 20 - 60 years Marianela Hutchinson MD LAB BLOOD ORDERABLES Final Re sult [facility] Unless otherwise noted, all lab tests performed by: Division of Pathology and Laboratory Medicine [address] [place] [address] * Tip Verification Central Vascular Access Device (04/15/2024 3:50 PM CONING MACHINE OPERATOR) Narrative John Fong MD - 04/15/2024 3:50 PM CONING MACHINE OPERATOR John Fong MD 04/15/2024 3:50 PM Central Vascular Access Device Tip Verification Performed by: John Fong MD Authorized by: John Fong MD CVAD Properties Date device placed: 04/15/2024 Device placement location: [facility] Catheter Type: Implanted venous port Catheter lumen: Single lumen Vein location: Internal jugular vein Laterality: Right Tip in good position and cleared for infusion us John Fong MD IV THERAPY ORDERABLES Final Re sult * XR Chest 1 View Portable (04/15/2024 2:45 PM CONING MACHINE OPERATOR) Anatomical Region Laterality Modality Chest Digital Radiogra phy 04/15/2024 2:50 PM CONING MACHINE OPERATOR Impressions 04/15/2024 2:53 PM CONING MACHINE OPERATOR 1. Right infusion port catheter terminates [...] and potentially actionable. Narrative 04/15/2024 2:53 PM CONING MACHINE OPERATOR FULL RESULT: Examination: XR CHEST 1 [...] IMAGING ORDERAB LES Final Result * Cytology Non-Survey Research Analyst Interpretation (04/15/2024 12:33 PM CONING MACHINE OPERATOR) Gross Description 4 Pap Stain Slides 750 ml. clear yellow fluid Specimen concentrated by cytocentrifugation technique 4 4:07 PM CONING MACHINE OPERATOR [facility] Major Classification [facility]/benign 4 4:07 PM CONING MACHINE OPERATOR [facility] Diagnosis Peritoneal washing: No metastatic carcinoma identified Reactive mesothelial cells and histiocytes 4 4:07 PM CONING MACHINE OPERATOR [facility] Retained/Biomark er Testing SR:4S 4 4:07 PM CONING MACHINE OPERATOR [facility] Informational Points Some tests reported here may have been developed and performance characteristics determined by [facility]. These tests have not been specifically cleared or approved by the U.S. Food and Drug Administration. 4:07 PM CONING MACHINE OPERATOR [facility] Washing (Peritoneal Washing) 04/15/2024 12:33 PM CONING MACHINE OPERATOR 04/15/2024 1:10 PM CONING MACHINE OPERATOR John Fong MD LAB CYTOLOGY ORDERABLES Final Result Performing Organization Address City/[facility]/ZIP Co de Phone Number [address] [address], [place] * Pathology Surgical Interpretation (04/15/2024 12:13 PM CONING MACHINE OPERATOR) Only the most recent of2 resultswithin the time period is included. 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 Falciform ligament, resection: Fibroadipose tissue, no tumor present 04/20/2024 8:13 PM CONING MACHINE OPERATOR [facility] Gross Description A: Falciform ligament, falciorm ligament biopsy....or 16: Consists of a fragment of castillo-yellow, lobulated fat (0.8 x 0.6 x 0.5 cm) entirely submitted in cassette A1. EF 04/20/2024 8:13 PM CONING MACHINE OPERATOR [facility] Disclaimer "Some tests reported here may have been developed and performance characteristics determined by [facility] Pathology and Laboratory Medicine. These tests have not been specifically cleared or approved by the U.S. Food and Drug Administration. If applicable, controls were reviewed and showed appropriate reactivity." 04/20/2024 8:13 PM CONING MACHINE OPERATOR [facility] Tissue (Falciform Ligament) 04/15/2024 12:13 PM CONING MACHINE OPERATOR 04/15/2024 1:18 PM CONING MACHINE OPERATOR John Fong MD LAB PATHOLOGY ORDERABLES Final Result Performing Organization Address City/[facility]/ZIP Co de Phone Number [address] [address], [place] * FL Central Venous Place Exchange (04/15/2024 11:40 AM CONING MACHINE OPERATOR) Narrative Systemgenerated, Documentation - 04/15/2024 11:40 AM CONING MACHINE OPERATOR This procedure requires no interpretation from the radiologist. us John Fong MD IMG FLUOROSCOPY ORDERABLES Fin al Result * CT Abdomen Pelvis with IV Contrast (04/12/2024 11:18 AM CONING MACHINE OPERATOR) Anatomical Region Laterality Modality Abdomen, Pelvis Computed Tomogra phy 04/12/2024 11:5 2 AM CONING MACHINE OPERATOR Impressions 04/12/2024 12:11 PM CONING MACHINE OPERATOR Wall thickening and slight mucosal irregularity [...] and potentially actionable. Narrative 04/12/2024 12:11 PM CONING MACHINE OPERATOR FULL RESULT: Examination: CT ABDOMEN PELVIS [...] radiologicfindings that are unexpected and potentially actionable. Nghia Zhu MD IMG CT ORDERABLES Final Result * Fractionated Bilirubin (04/12/2024 9:04 AM [facility]) Bilirubin Direct 04/12/20 9:47 AM [facility] Comment: Direct and indirect bilirubin will not be reported when Total bilirubin result is <0.3 mg/dL Indocyanine Green (ICG) may cause falsely elevated bilirubin results. Total and direct bilirubin must not be measured from samples containing indocyanine green. Bilirubin Indirect 2023 9:47 AM [facility] Comment:Direct and indirect bilirubin will not be reported when Total bilirubin result is <0.3 mg/dL Bilirubin Total <0.3 0.0 - 1.2 mg/dL 04/12/2024 9:47 AM [facility] Comment: Direct and indirect bilirubin [...] Unknown Venipuncture / Unknown 04/12/2024 9:04 AM CONING MACHINE OPERATOR 04/12/2024 9:08 AM [facility] Nghia Zhu MD LAB BLOOD ORDERABLES Final Resu lt [facility] Unless otherwise noted, all lab tests performed by: Division of Pathology and Laboratory Medicine [address] [place] [phone] * (ABNORMAL) Lipase (04/12/2024 9:04 AM CONING MACHINE OPERATOR) Lipase Level 311(H) 13 - 60 U/L 04/12/2024 10:09 AM CONING MACHINE OPERATOR [facility] Blood Peripheral blood specimen / Unknown Venipuncture / Unknown 04/12/2024 9:04 AM CONING MACHINE OPERATOR 04/12/2024 9:08 AM CONING MACHINE OPERATOR Narrative [facility] - 04/12/2024 10:09 AM CONING MACHINE OPERATOR Reference range established based on adult population us Nghia Zhu MD LAB BLOOD ORDERABLES Final Resu lt Performing Organization Address [facility] de Phone Number [facility] Unless otherwise noted, all lab tests performed by: Division of Pathology and Laboratory Medicine [address] [place] [phone] * (ABNORMAL) Amylase (04/12/2024 9:04 AM CONING MACHINE OPERATOR) Amylase Level 171(H) 28 - 100 U/L 04/12/2024 9:47 AM CONING MACHINE OPERATOR [facility] Blood Peripheral blood specimen / Unknown Venipuncture / Unknown 04/12/2024 9:04 AM CONING MACHINE OPERATOR 04/12/2024 9:08 AM CONING MACHINE OPERATOR us Nghia Zhu MD LAB BLOOD ORDERABLES Final Resu lt Performing Organization Address [facility]/ZIP Co de Phone Number [facility] Unless otherwise noted, all lab tests performed by: Division of Pathology and Laboratory Medicine [address] [place] [phone] * TSH (04/09/2024 11:09 AM CONING MACHINE OPERATOR) Only the most recent of2 resultswithin the time period is included. Thyroid Stimulating Hormone 1.53 0.27 - 4.20 mcunit/mL 04/09/2024 12:23 PM CONING MACHINE OPERATOR [facility] Blood Peripheral blood specimen / Unknown Venipuncture / Unknown 04/09/2024 11:09 AM CONING MACHINE OPERATOR 04/09/2024 11:19 AM CONING MACHINE OPERATOR us Ceci Nicholson MD LAB BLOOD ORDERABLES Final Resu lt Performing Organization Address [facility] de Phone Number [facility] Unless otherwise noted, all lab tests performed by: Division of Pathology and Laboratory Medicine [address] [place] [phone] * (ABNORMAL) Hemoglobin A1c (04/09/2024 11:09 AM CONING MACHINE OPERATOR) Only the most recent of3 resultswithin the time period is included. Hemoglobin A1c 7.0(H) 4.3 - 5.6 % 04/09/2024 12:14 PM CONING MACHINE OPERATOR [facility] Blood Peripheral blood specimen / Unknown Venipuncture / Unknown 04/09/2024 11:09 AM CONING MACHINE OPERATOR 04/09/2024 11:19 AM CONING MACHINE OPERATOR Narrative [facility] - 04/09/2024 12:14 PM CONING MACHINE OPERATOR HbA1c values >=6.5% are diagnostic of diabetes mellitus. Diagnosis should be confirmed by repeat testing. Therapeutic Action suggested: >8.0% HbA1c; Goal of therapy: <7.0% HbA1c us Ceci Nicholson MD LAB BLOOD ORDERABLES Final Resu lt Performing Organization Address [facility] de Phone Number [facility] Unless otherwise noted, all lab tests performed by: Division of Pathology and Laboratory Medicine [address] [place] [phone] * Pathology Outside Interpretation (04/02/2024) Materials Received Accession#, Stained, Block, Unstained Collected Received A. [id number], 20 SS, 0 BLOCKS, 0 USS 04/02/2024 04/22/2024 04/22/2024 5:36 PM CONING MACHINE OPERATOR [facility] Diagnosis Outside ([id number], 20 SS, 0 BLOCKS, 0 USS, collected [...] FEATURES. See comment. FY/ISAURO 04/22/2024 5:36 PM [facility] boarding pass Comment Part A. There is no evidence of malignancy on H&E and immunohistochemical stain for Cytokeratin AE1/AE3. Of note, the biopsy may not be site safety representative of the entire lesion. Please correlate [...] immunohistochemistry: Negative (Score: 0) 04/22/2024 5:36 PM [facility] boarding pass Biomarker Block(s) Block for biomarker testing: C1 Normal block: N/A 04/22/2024 5:36 PM [facility] 10-20 Media Disclaimer "Some tests reported here may have been developed and performance characteristics determined by [facility] Pathology and Laboratory Medicine. These tests have not been specifically cleared or approved by the U.S. Food and Drug Administration. If applicable, controls were reviewed and showed appropriate reactivity." 04/22/2024 5:36 PM [facility] boarding pass Tissue 04/02/2024 04/22/2024 6:4 0 AM CONING MACHINE OPERATOR us Sybil Edmonds MD LAB PATHOLOGY ORDERABLES Final R esult [facility] [address] [address] [place] [address], [place] * OSI CT Abdomen and Pelvis (04/01/2024 8:21 AM CONING MACHINE OPERATOR) Only the most recent of3 resultswithin the time period is included. Narrative Systemgenerated, Documentation - 04/27/2024 8:22 AM CONING MACHINE OPERATOR Study acquired at another institution. For comparison only. No [facility] originated interpretation requested or available. [facility] Regan Zhu DO IMG OUTSIDE IMAGE ORDERAB LES Final Result * OSI CT CHEST ABDOMEN PELVIS (03/23/2024 7:37 PM CONING MACHINE OPERATOR) Narrative Systemgenerated, Documentation - 04/09/2024 7:37 PM CONING MACHINE OPERATOR Study acquired at another institution. For comparison only. No [facility] originated interpretation requested or available. Margoth Souza MD IMG OUTSIDE IMAGE ORDERABLES Fin al Result * OSI Chest (03/23/2024 7:37 PM CONING MACHINE OPERATOR) Only the most recent of4 resultswithin the time period is included. Narrative Systemgenerated, Documentation - 04/09/2024 7:37 PM CONING MACHINE OPERATOR Study acquired at another institution. For comparison only. No [facility] originated interpretation requested or available. Margoth Souza MD IMG OUTSIDE IMAGE ORDERABLES Fin al Result * OSI CT Chest (03/22/2024 8:21 AM CONING MACHINE OPERATOR) Narrative Systemgenerated, Documentation - 04/27/2024 8:21 AM CONING MACHINE OPERATOR Study acquired at another institution. For comparison only. No [facility] originated interpretation requested or available. [facility] Regan Zhu DO IMG OUTSIDE IMAGE ORDERAB LES Final Result * (ABNORMAL) Basic Metabolic Panel- Total Calcium (01/03/2024 2:59 PM CDT) Only the most recent of7 resultswithin the time period is included. eGFR 71 >=60 mL/min/1. 73 sq. m 01/03/2024 3:44 PM CDT [facility] Comment: The eGFRcr is calculated [...] - 10.2 mg/dL 01/03/2024 3:44 PM CDT [facility] Sodium Level 139 136 - 145 mmol/L 01/03/2024 3:44 PM CDT [facility] Potassium Level 3.9 3.4 - 4.5 mmol/L 01/03/2024 3:44 PM CDT [facility] Chloride 103 98 - 107 mmol/L 01/03/2024 3:44 PM CDT [facility] CO2 28 22 - 29 mmol/L 01/03/2024 3:44 PM CDT [facility] Anion Gap 8 4 - 14 mmol/L 01/03/2024 3:44 PM CDT [facility] Creatinine 1.18(H) 0.67 - 1.17 mg/dL 01/03/2024 3:44 PM CDT [facility] BUN 15 6 - 23 mg/dL 01/03/2024 3:44 PM CDT [facility] Glucose Level 137(H) 70 - 99 mg/dL 01/03/2024 3:44 PM CDT [facility] Comment: Effective 12/14/15, the glucose reference intervals have been updated based on [place] [employer] guidelines (Standards of Medical Care [...] BLOOD ORDERABLES Final Result Performing Organization Address City/[facility] Co de Phone Number [facility] Unless otherwise noted, all lab tests performed by: Division of Pathology and Laboratory Medicine [address] [place] [phone] * Zinc Transporter 8 Ab (01/03/2024 4:22 AM CDT) Pathologist [facility] Zinc T8 AB <15.0 <15.0 U/mL 01/15/2024 11:18 AM CDT [facility] TIFF Comment: ADDITIONAL INFORMATION This test has been modified from the director of marketing and promotions's instructions. Its performance characteristics were determined by [facility] in a manner consistent with CLIA requirements. This test has not been cleared or approved by the U.S. Food and Drug Administration. Test Performed by: [place] [address] Fountain Supervisor: Mary Jane Topete Ph.D.; CLIA# [id number] Blood Peripheral blood specimen / Unknown Venipuncture / Unknown 01/03/2024 4:22 AM CDT 01/03/2024 4:55 AM CDT Alicia Mcmanus APRN LAB BLOOD ORDERABLES Final Result Performing Organization Address [facility] Co de Phone Number [facility] TIFF * Islet Antigen 2 (IA-2) Antibody (01/03/2024 4:22 AM CDT) IA-2 Antibody 0.00 <=0.02 nmol/L 01/07/2024 12:20 AM CDT [facility] TIFF Comment: ADDITIONAL INFORMATION This test was developed and its performance characteristics determined by [facility] in a manner consistent with CLIA requirements. This test has not been cleared or approved by the U.S. Food and Drug Administration. Test Performed by: [place] [address] Fountain Supervisor: Mary Jane Topete Ph.D.; CLIA# [id number] Blood Peripheral blood specimen / Unknown Venipuncture / Unknown 01/03/2024 4:22 AM CDT 01/03/2024 4:55 AM CDT Alicia Mcmanus APRN LAB BLOOD ORDERABLES Final Result [facility] TIFF * GREG Ab Assay (01/03/2024 4:22 AM CDT) [id number] 0.00 <=0.02 nmol/L 01/07/2024 12:01 AM CDT [facility] TIFF Comment: ADDITIONAL INFORMATION This test was developed and its performance characteristics determined by [facility] in a manner consistent with CLIA requirements. This test has not been cleared or approved by the U.S. Food and Drug Administration. Test Performed by: [facility] - [address] [address] Fountain Supervisor: Mary Jane Topete Ph.D.; CLIA# [id number] Blood Peripheral blood specimen / Unknown Venipuncture / Unknown 01/03/2024 4:22 AM CDT 01/03/2024 4:55 AM CDT us Vargas Sohail Mcmanusemily MARIE LAB BLOOD ORDERABLES Final Result [facility] * Insulin Ab (01/03/2024 4:22 AM CDT) Pathologist [facility] Insulin Ab-[place] 0.00 0.00 - 0.02 nmol/L 01/06/2024 5:14 PM CDT [facility] Comment: ADDITIONAL INFORMATION This test was developed and its performance characteristics determined by [facility] in a manner consistent with CLIA requirements. This test has not been cleared or approved by the U.S. Food and Drug Administration. Test Performed by: [address] [address] Fountain Supervisor: Mary Jane Topete Ph.D.; CLIA# [id number] Blood Peripheral blood specimen / Unknown Venipuncture / Unknown 01/03/2024 4:22 AM CDT 01/03/2024 4:55 AM CDT Aliciakeyon Mcmanus APRN LAB BLOOD ORDERABLES Final Result Performing Organization Address [facility] Co de Phone Number [facility] * C Peptide (01/03/2024 4:22 AM CDT) Pathologist [facility] C-Peptide 2.12 1.10 - 4.40 ng/mL 01/03/2024 5:48 AM CDT [facility] Blood Peripheral blood specimen / Unknown Venipuncture / Unknown 01/03/2024 4:22 AM CDT 01/03/2024 4:55 AM CDT us Vargas Sohail Mcmanus APRN LAB BLOOD ORDERABLES Final Result [facility] Unless otherwise noted, all lab tests performed by: Division of Pathology and Laboratory Medicine [address] [place] [phone] * (ABNORMAL) Hemogram (01/02/2024 7:20 PM CDT) White Blood Cell 13.8(H) 4.1 - 10.5 K/uL 01/02/2024 7:33 PM CDT [facility] Red Blood Cell 4.74 4.30 - 6.04 M/uL 01/02/2024 7:33 PM CDT [facility] Hemoglobin 12.2(L) 13.3 - 17.4 g/dL 01/02/2024 7:33 PM CDT [facility] Hematocrit 38.6(L) 39.5 - 51.8 % 01/02/2024 7:33 PM CDT [facility] Mean Cell Volume 81(L) 82 - 99 fL 01/02/2024 7:33 PM CDT [facility] Mean Cell Hemoglobin 25.7(L) 26.6 - 33.2 pg 01/02/2024 7:33 PM CDT [facility] Mean Cell Hemoglobin Concentration 31.6 31.1 - 35.2 g/dL 01/02/2024 7:33 PM CDT [facility] RDW-SD 39.1 37.5 - 49.7 fL 01/02/2024 7:33 PM CDT [facility] Red Cell Diameter Width 13.1 11.6 - 15.5 % 01/02/2024 7:33 PM CDT [facility] Platelet 291 160 - 397 K/uL 01/02/2024 7:33 PM CDT [facility] Mean Platelet Volume 9.7 9.1 - 12.6 fL 01/02/2024 7:33 PM CDT [facility] INRBC 0.0 0.0 - 0.1 /100 WBC 01/02/2024 7:33 PM CDT [facility] Comment: The INRBC (instrument [...] PRICE LAB BLOOD ORDERABLES Final R esult Performing Organization Address City/[facility]/ZIP Co de Phone Number [facility] Unless otherwise noted, all lab tests performed by: Division of Pathology and Laboratory Medicine [address] [place] [phone] * (ABNORMAL) Beta Hydroxy Quant (01/02/2024 7:20 PM CDT) Only the most recent of2 resultswithin the time period is included. Pathologist [facility] Beta-Hydroxybuty rate 0.85(H) 0.02 - 0.27 mmol/L 01/02/2024 8:01 PM CDT [facility] Is patient fasting? No 01/02/2024 8:01 PM CDT [facility] Comment:A fasting specimen i s recommended and results obtained from non-fasting specimens should be interpreted with caution using reference ranges based on fasting status and in conjunction with clinical context. Blood Peripheral blood specimen / Unknown Venipuncture / Unknown 01/02/2024 7:20 PM CDT 01/02/2024 7:24 PM CDT Narrative [facility] - 01/02/2024 8:01 PM CDT Reference range based on fasting. us Alicia Mcmanus APRN LAB BLOOD ORDERABLES Final Result Performing Organization Address City/[facility]/ZIP Co de Phone Number [facility] Unless otherwise noted, all lab tests performed by: Division of Pathology and Laboratory Medicine [address] [place] [phone] * (ABNORMAL) ABG+ (ABG, Na, K, Cl, Glu, Hgb, Hct, Lactate, Ion Ca) (01/02/2024 10:38 AM CDT) Only the most recent of2 resultswithin the time period is included. [facility] Sodium Arterial 140 136 - 146 mmol/L 01/02/2024 10:44 AM CDT [facility] Potassium Arterial 3.7 3.4 - 4.5 mmol/L 01/02/2024 10:44 AM [facility] Chloride Arterial 103 98 - 106 mmol/L 01/02/2024 10:44 AM [facility] Glucose Arterial 270(H) 70 - 105 mg/dL 01/02/2024 10:44 AM [facility] Hgb Art 12.9(L) 13.5 - 17.5 g/dL 01/02/2024 10:44 AM [facility] Hematocrit Arterial 40(L) 42 - 52 % 01/02/2024 10:44 AM [facility] Lactate Arterial 1.0(H) 0.4 - 0.8 mmol/L 01/02/2024 10:44 AM [facility] Calcium Ionized Arterial 1.14(L) 1.15 - 1.29 mmol/L 01/02/2024 10:44 AM [facility] pH Arterial 7.35 7.35 - 7.45 01/02/2024 10:44 AM [facility] P CO2 Arterial 42.9 35.0 - 48.0 mmHg 01/02/2024 10:44 AM [facility] P O2 Arterial 164(H) 83 - 108 mmHg 01/02/2024 10:44 AM [facility] Bicarbonate Arterial 24 21 - 28 mmol/L 01/02/2024 10:44 AM [facility] WB Anion Gap 13 7 - 16 mmol/L 01/02/2024 10:44 AM [facility] Base Excess Arterial -2 -2 - 3 mmol/L 01/02/2024 10:44 AM [facility] Oxygen Saturation Arterial 99 95 - 99 % 01/02/2024 10:44 AM [facility] Oxygen FLOW Rate/ FiO2 01/02/2024 10:44 AM [facility] O2 Therapy 01/02/2024 10:44 AM [facility] Art Kirill Test Not Applicable (Arterial Line Draw) 01/02/2024 10:44 AM [facility] Blood Arterial blood specimen / Unknown Arterial Line / Unknown 01/02/2024 10:38 AM CDT 01/02/2024 10:41 AM CDT Narrative [facility] - 01/02/2024 10:44 AM [...] MD LAB BLOOD ORDERABLES Final Re sult [facility] Unless otherwise noted, all lab tests performed by: Division of Pathology and Laboratory Medicine [address] [place] [address] * Intraoperative Ultrasound - For Image Storage [...] are unexpected and potentially actionable. us Margoth Harley MD IMG CT ORDERABLES Final Result * BB Preop Exp Date (12/23/2023 8:51 AM CDT) PREOP EXP DATE 01/22/2024 12/23/2023 2:19 PM CDT [facility] Blood Peripheral blood specimen / Unknown Venipuncture / Unknown 12/23/2023 8:51 AM CDT 12/23/2023 9:00 AM CDT us Margoth Souza MD BLOOD BANK TEST ORDERABLES Final Result [facility] [address] [place] [address] B2.[facility] [place] [address] * Preop Updated Expiration (12/23/2023 8:51 AM CDT) Pathologist [facility] PREOP STATUS 01/02/2024 11:33 PM CDT [facility] PREOP EXP DATE 01/02/2024 01/02/2024 11:33 PM CDT [facility] Blood Peripheral blood specimen / Unknown Venipuncture / Unknown 12/23/2023 8:51 AM CDT 12/23/2023 9:00 AM CDT us Margoth Souza MD BLOOD BANK TEST ORDERABLES Final Result [facility] [address] [facility] [place] [address] [place] [address] * (ABNORMAL) Urinalysis with Reflex Culture (12/23/2023 8:51 AM CDT) Only the most recent of2 resultswithin the time period is included. Pathologist [facility] Urine Appearance Clear Clear 12/23/19 9:33 AM CDT [facility] Urine Color Straw Colorless, Straw, Yellow, Dark Yellow, Straw-Yellow 12/23/2023 9:33 AM CDT [facility] Urine Specific [place] 1.032 1.003 - 1.035 12/23/2023 9:33 AM CDT [facility] Urine pH 6.0 5.0 - 8.0 12/23/2023 9:33 AM CDT [facility] Urine Glucose >=1000(A) Negative mg/dL 12/23/2023 9:33 AM CDT [facility] Urine Ketones Negative Negative mg/dL 12/23/2023 9:33 AM CDT [facility] Urine Blood Negative Negative 12/23/2023 9:33 AM CDT [facility] Urine Protein 30(A) Negative mg/dL 12/23/2023 9:33 AM CDT [facility] Urine Bilirubin Negative Negative 9:33 AM CDT [facility] Urine Urobilinogen Negative Negative 12/23/2023 9:33 AM CDT [facility] Urine Nitrite Negative Negative 12/23/2023 9:33 AM CDT [facility] Urine Leukocyte Esterase Negative Negative 12/23/2023 9:33 AM CDT [facility] Urine Mucous Not Seen Not Seen, Trace /HPF 12/23/2023 9:33 AM CDT [facility] Urine Bacteria Not Seen Not Seen /HPF 12/23/2023 9:33 AM CDT [facility] Urine Squamous Epithelial Cells OCC Not Seen, OCC, Rare /HPF 12/23/2023 9:33 AM CDT [facility] Urine WBC <1 <=2 /HPF 12/23/2023 9:33 AM CDT [facility] Urine RBC 1 <=2 /HPF 12/23/2023 9:33 AM CDT [facility] Urine Voided urine specimen / Unknown Non-blood Collection / Unknown 12/23/2023 8:51 AM CDT 12/23/2023 9:10 AM CDT [facility] - 12/23/2023 9:33 AM CDT Some reporting parameters within the Urinalysis test have changed due to the implementation of new instrumentation in the Main [place], allowing greater sensitivity of measurement. Urinalysis results reported by the [facility] using existing instrumentation, as well as Urinalysis testing performed manually or by back-up methodology at the main campus, will remain relatively unchanged. New reporting parameters and units will now be reported for all [place]. us Margoth Souza MD URINE ORDERABLES Final Result [facility] Unless otherwise noted, all lab tests performed by: Division of Pathology and Laboratory Medicine [address] [place] [phone] * 30-Day Pre-Op Type and Screen (12/23/2023 8:51 AM CDT) Only the most recent of2 resultswithin the time period is included. ABORh O POS 12/23/2023 8:45 AM CDT [facility] ABSC Negative 12/23/2023 8:45 AM CDT [facility] BB Criteria Met Criteria met 12/23/2023 8:45 AM CDT [facility] Historical Record Check Complete 12/23/2023 8:45 AM CDT [facility] Blood Peripheral blood specimen / Unknown Venipuncture / Unknown 12/23/2023 8:51 AM CDT 12/23/2023 9:00 AM CDT Margoth Souza MD BLOOD BANK TEST ORDERABLES Final Result [facility] The [facility] [address] [place] [address] [address] [place] [address] * TMP Interpretation Exception PreOp Expiration (12/23/2023 8:51 AM CDT) Only the most recent of2 resultswithin the time period is included. TMP Exception 12/24/2023 10:47 AM CDT [facility] TMP Signature . 12/24/2023 10:47 AM CDT [facility] Blood Peripheral blood specimen / Unknown Venipuncture / Unknown 12/23/2023 8:51 AM CDT 12/23/2023 9:00 AM CDT Margoth Souza MD BLOOD BANK TEST ORDERABLES Final Result [facility] The [facility] [address] [facility] [place] [address] [place] [address] * ACTH (12/09/2023 9:45 AM CDT) Only the most recent of2 resultswithin the time period is included. Pathologist [facility] ACTH 22 7 - 63 pg/mL 12/09/2023 12:19 PM CDT [facility] Blood Peripheral blood specimen / Unknown Venipuncture / Unknown 12/09/2023 9:45 AM CDT 12/09/2023 9:52 AM CDT Narrative [facility] - 12/09/2023 12:19 PM CDT Reference range established based on adult population (7 - 10am draws). No established reference values for p.m. draws. Results greater than 1826 pg/mL may not be reliable due to matrix effect with extended dilution as it exceeds the director of marketing and promotions's recommended limit. ACTH reference intervals are established for the morning hours from 7-10 am. Due to the circadian rhythm of ACTH levels in plasma, the sample collection time must be noted. Caution should be exercised when interpreting such values and done in conjunction with clinical context. Veronica Del Castillo APRN LAB BLOOD ORDERABLES Final Result [facility] Unless otherwise noted, all lab tests performed by: Division of Pathology and Laboratory Medicine [address] [place] [address] * DHEA Sulfate (12/09/2023 9:45 AM CDT) [facility] [place]HEAS[place] [address] 20 - 299 mcg/dL 12/10/2023 12:10 PM CDT [facility] Comment: Test Performed by: [facility] [address] [place] [address] Fountain Supervisor: Mary Jane Topete Ph.D.; CLIA# [id number] Blood Peripheral blood specimen / Unknown Venipuncture / Unknown 12/09/2023 9:45 AM CDT 12/09/2023 9:56 AM CDT Veronica OrtaMónica MARIE LAB BLOOD ORDERABLES Final Result [facility] * Cortisol, Total (12/09/2023 9:45 [...] Castillo APRN LAB BLOOD ORDERABLES Final Result [facility] Unless otherwise noted, all lab tests performed by: Division of Pathology and Laboratory Medicine [address] [place] [phone] * IR CT GUIDED BIOPSY RENAL (10/03/2023 10:27 AM CDT) Anatomical Region Laterality Modality Abdomen/Pelvis, Organ (liver/spleen/kidney) Computed Tomography Narrative 10/04/2023 9:03 AM CDT Table formatting from the original result was not included. Date of Procedure: 10/03/23 Attending Physician: Kumar Comer MD Transportation Aide: None Pre Procedure Diagnosis: Renal mass Post [...] Interventional Radiology required. us Shazia Arriaza MD [place] IR ORDERABLES Final Re sult * Prothrombin Time (10/03/2023 9:27 AM CDT) Prothrombin Time 12.6 11.9 - 14.5 second(s) 10/03/2023 9:57 AM CDT [facility] International Normalization Ratio 0.98 0.87 - 1.12 10/03/2023 9:57 AM CDT [facility] Blood Peripheral blood specimen / Unknown Venipuncture / Unknown 10/03/2023 9:27 AM CDT 10/03/2023 9:28 AM CDT us ConradoJeanDannielle Ng PA-C LAB BLOOD ORDERABLES Final Result [facility] [address] [facility] [place]. [address] [place] [address] * Type and Screen (10/03/2023 9:27 AM CDT) ABORh O POS 10/03/2023 9:17 AM CDT [facility] ABSC Negative 10/03/2023 9:17 AM CDT [facility] Clot Expiration 10/06/2023 23:59 10/03/2023 9:17 AM CDT [facility] Historical Record Check Complete 10/03/2023 9:17 AM CDT [facility] Blood Peripheral blood specimen / Unknown Venipuncture / Unknown 10/03/2023 9:27 AM CDT 10/03/2023 9:52 AM CDT us Abilio Ng PA-C BLOOD BANK TEST ORDERABLES Final Result [facility] The [facility] [address] [facility] [place] [address] [place] [address] * X-ray Chest 2 Views (09/19/2023 9:24 [...] and potentially actionable. us Shazia Arriaza MD IM DIAGNOSTIC IMAGING ORD ERABLES Final Result * Metanephrines Fractionated (09/16/2023 4:24 PM CDT) Normetane Free-Maxwell 0.43 <0.90 nmol/L 09/19/2023 2:59 PM CDT [facility] Metanephr Free-[place] <0.20 <0.50 nmol/L 09/19/2023 2:59 PM CDT [facility] Comment: ADDITIONAL INFORMATION This test was developed and its performance characteristics determined by [facility] in a manner consistent with CLIA requirements. This test has not been cleared or approved by the U.S. Food and Drug Administration. Test Performed by: [facility] [address] [place] [phone] Fountain Supervisor: Scot Skelton M.D. Ph.D.; CLIA# [id number] Blood Peripheral blood specimen / Unknown Venipuncture / Unknown 09/16/2023 4:24 PM CDT 09/16/2023 4:41 PM CDT us Shazia Arriaza MD LAB BLOOD ORDERABLES Final Result Performing Organization Address City/[facility] Co de Phone Number [facility] TIFF * Hepatitis C Virus Antibody (09/16/2023 4:24 PM CDT) [facility] HCVAb. Non Reactive Non Reactive 09/17/2023 9:11 AM CDT [facility] Blood Peripheral blood specimen / Unknown Venipuncture / Unknown 09/16/2023 4:24 PM CDT 09/16/2023 4:41 PM CDT Narrative [facility] - 09/17/2023 9:11 AM CDT Antibody detection in the immunocompromised and immunosuppressed population may be delayed or absent entirely. Therefore serial testing, correlation with other clinical findings, and supplemental testing (if available) should be taken into consideration when interpreting the results. us Shazia Arriaza MD LAB BLOOD ORDERABLES Final Result [facility] Unless otherwise noted, all lab tests performed by: Division of Pathology and Laboratory Medicine [address] [place] [phone] * Aldosterone Level (09/16/2023 4:24 PM CDT) [facility] Aldosterone-Maxwell 8.1 <=21 ng/dL 09/20/2023 1:02 AM CDT [facility] TIFF Comment: ADDITIONAL INFORMATION Reference range for patients 11 years and older is based on upright A.M. collection from subjects without sodium restrictions. This test was developed and its performance characteristics determined by [facility] in a manner consistent with CLIA requirements. This test has not been cleared or approved by the U.S. Food and Drug Administration. Test Performed by: [facility] [address] [place] [address] Fountain Supervisor: Scot Skelton M.D. Ph.D.; CLIA# [id number] Blood Peripheral blood specimen / Unknown Venipuncture / Unknown 09/16/2023 4:24 PM CDT 09/16/2023 4:41 PM CDT Shazia Arriaza MD LAB BLOOD ORDERABLES Final Result [facility] TIFF * Renin Activity (09/16/2023 4:24 PM CDT) [facility] 4.[facility] ng/mL/h 09/19 3:42 PM CDT [facility] Comment: REFERENCE VALUE (Peripheral vein specimen) Na-deplete, upright: Mean: 5.9 Range: 2.9-10.8 Na-replete, upright: Mean: 1.0 Range: < or =0.6-3.0 ADDITIONAL INFORMATION Testing performed by Liquid Chromatography-Tandem Mass Spectrometry (LC-MS/MS). This test was developed and its performance characteristics determined by [facility] in a manner consistent with CLIA requirements. This test has not been cleared or approved by the U.S. Food and Drug Administration. Test Performed by: [facility] [address] [place] [address] Fountain Supervisor: Scot Skelton M.D. Ph.D.; CLIA# [id number] Blood Peripheral blood specimen / Unknown Venipuncture / Unknown 09/16/2023 4:24 PM CDT 09/16/2023 4:41 PM CDT us Shazia Arriaza MD LAB BLOOD ORDERABLES Final Result [facility] TIFF * Urine Culture (09/16/2023 4:24 PM CDT) [facility] Urine Culture Normal site mirna present. Generally of low significance. Correlate with clinical data and culture history. 09/18/2023 8:31 AM CDT [facility] Urine Voided urine specimen / Unknown Non-blood Collection / Unknown 09/16/2023 4:24 PM CDT 09/16/2023 4:41 PM CDT Result Awa Arriaza MD MICROBIOLOGY - GENERAL ORD ERABLES Final Result [facility] Unless otherwise noted, all lab tests performed by: Division of Pathology and Laboratory Medicine [address] [place] [phone] * T4 (09/16/2023 4:24 PM CDT) Pathologist [facility] Thyroxine 7.0 4.5 - 11.7 mcg/dL 09/16/2023 5:55 PM CDT [facility] Blood Peripheral blood specimen / Unknown Venipuncture / Unknown 09/16/2023 4:24 PM CDT 09/16/2023 4:41 PM CDT Result Awa Arriaza MD LAB BLOOD ORDERABLES Final Result [facility] Unless otherwise noted, all lab tests performed by: Division of Pathology and Laboratory Medicine [address] [place] [address] * Confirm ABORh (09/16/2023 4:23 PM CDT) ABORh Confirm O POS 09/16/2023 4:15 PM CDT [facility] Blood Peripheral blood specimen / Unknown Venipuncture / Unknown 09/16/2023 4:23 PM CDT 09/16/2023 4:41 PM CDT us Shazia Arriaza MD BLOOD BANK TEST ORDERABLES Final Result [facility] The 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 For comparison only. No [facility] originated interpretation requested or available. us Margoth Souza MD IMG OUTSIDE IMAGE ORDERABLES Fin al Result after 07/16/2023 Insurance MEDICARE PART A AND B MEDICARE PART A AND B Advance Directives * Full Code (Latest Code Status on File) Date Activated Date Inactivated Comments 04/12/2024 1:24 PM 04/12/2024 5:43 PM * Full Code Date Activated Date Inactivated Comments 01/02/2024 1:48 PM 01/03/2024 7:17 PM Care Teams Insurance Claims Representative Relationship Specialty Start Date End Date Margoth Souza MD [address] [place] [phone] [email or web address] PCP - General Urology 07/30/23 04/14/24 Eagle Zhu DO [address] [place] [phone] [email or web address] PCP - External Primary Care Provider Family Practice 04/08/24 Marianela Hutchinson MD [address] [place] [phone] [email or web address] PCP - General Gastrointestinal Medical Oncology 05/04/24 Mary Jane Cassidy MD [address] [place] [phone] [email or web address] Consulting Physician Endocrinology 12/09/23 Barry He MD [address] [place] [phone] [email or web address] Consulting Physician Internal Medicine 12/23/23 Patience Hunt MD [address] [place] [phone] [email or web address] Consulting Physician Endocrinology 12/31/23 Marianela Hutchinson MD [address] [place] [phone] [email or web address] Consulting Physician Gastrointestinal Medical Oncology 04/13/24 Margoth Souza MD [address] [place] [phone] [email or web address] Consulting Physician Urology 04/15/24 Ceci Nicholson MD [address] [place] [phone] [email or web address] Consulting Physician Internal Medicine 04/09/24 Sigifredo Davenport MD [address] [place] [phone] [email or web address] Consulting Physician Internal Medicine 06/29/24
[2024-07-16] MEDS ORDERED: DIAZEPAM 5 MG TABLET ONE (00:23)
[2024-07-16 01:03] LABS: Absolute Basophils 0.1 K/uL (0-0.5); Absolute Eosinophils 0.2 K/uL (0-0.5); Absolute Lymphocytes (CBC) 1.4 K/uL (0.7-4.9); Absolute Monocytes 0.6 K/uL (0.1-1.3); Absolute Neutrophil 4.9 K/uL (1.8-8.0); Eosinophils % 2.7 % (0-4.4); Hematocrit 34.3 % (39.6-49.0); Hemoglobin 11.6 g/dL (13.6-17.9); Lymphocytes % 19.5 % (15.3-44.8); MCHC 33.9 g/dL (32.0-36.0); MCV 76.7 fL (80-100); MPV 7.8 fL (7.6-11.3); Neutrophils % 68.8 % (41.7-73.7); Nucleated Red Blood Cells % 0.2 % (0-0); Platelets 210 thou/uL (152-406); RBC Red Blood Cell Count 4.47 M/uL (4.33-5.43)
[2024-07-16 01:14] LABS: Anion Gap 11.4 mEq/L (5.0-15.0); Potassium 4.4 mEq/L (3.5-5.1); Troponin High Sensitivity 20.9 pg/mL (<58.9)
--- NOTE | 2024-07-16 02:09 | ER ---
Nurse's Notes [facility] Name: Zeke Mackay Sr Age: 59 yrs Sex: Male : 1965 Arrival Date: 07/15/2024 Time: 23:13 Bed 2 Private MD: Diagnosis: Acute anxiety attack, elevated blood pressure reading Presentation: 07/15 23:33 Chief complaint: Patient states: "Feeling like I am getting weak bp was 256/130". vc1 Coronavirus screen: Client denies travel out of the [place] in the last 14 days. At this time, the client does not indicate any symptoms associated with coronavirus-19. Ebola Screen: Patient negative for fever greater than or equal to 101.5 degrees Fahrenheit, and additional compatible Ebola Virus Disease symptoms Patient denies exposure to infectious person. Patient denies travel to an Ebola-affected area in the 21 days before illness onset. No symptoms or risks identified at this time. Initial Sepsis Screen: Does the patient meet any 2 criteria? No. Patient's initial sepsis screen is negative. Does the patient have a suspected source of infection? No. Patient's initial sepsis screen is negative. Risk Assessment: Do you want to hurt yourself or someone else? Patient reports no desire to harm self or others. Onset of symptoms was July 15, 2024 at 22:30. 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 - Infectious Disease History:: Denies. - Social history:: Smoking status: Patient denies any tobacco usage or history of. - Family history:: not pertinent. Screenin/27 01:02 [facility] ED Fall Risk Assessment (Adult) History of falling in the last 3 months, bm8 including since admission No falls in past 3 months (0 pts) Confusion or Disorientation No (0 pts) Intoxicated or Sedated No (0 pts) Impaired Gait No (0 pts) Mobility Assist Device Used No (0 pt) Altered Elimination No (0 pt) Score/Fall Risk Level 0 - 2 = Low Risk Oriented to surroundings, Maintained a safe environment, Educated pt \\T\\ family on fall prevention, incl call for assistance when getting out of bed, Assessed \\T\\ reinforced patient's understanding of fall precautions, Hourly rounding (assess needs \\T\\ fall precautionary measures) done, Used ambulatory aids as needed (educated on \\T\\ assisted with), Used gait belt as appropriate. Abuse screen: Denies threats or abuse. Nutritional screening: No deficits noted. Tuberculosis screening: No symptoms or risk factors identified. Assessment: : Reassessment: Patient appears in no apparent distress at this time. Patient and/or bm8 family updated on plan of care and expected duration. Pain level reassessed. Patient is alert, oriented x 3, equal unlabored respirations, skin warm/dry/pink. Patient states feeling better. Patient states symptoms have improved. General: Appears in no apparent distress. comfortable, Behavior is calm, cooperative, appropriate for age. : Pain: Denies pain. Neuro: No deficits noted. Level of Consciousness is awake, alert, bm8 obeys commands, Oriented to person, place, time, situation, Appropriate for age. Cardiovascular: Heart tones S1 S2 present Capillary refill < 3 seconds in bilateral fingers Patient's skin is warm and dry. Cardiovascular: Reports high blood pressure. Respiratory: Airway is patent Respiratory effort is even, unlabored, Respiratory pattern is regular, symmetrical. GI: No signs and/or symptoms were reported involving the gastrointestinal system. : No signs and/or symptoms were reported regarding the genitourinary system. EENT: No signs and/or symptoms were reported regarding the EENT system. Derm: No signs and/or symptoms reported regarding the dermatologic system. Musculoskeletal: No signs and/or symptoms reported regarding the musculoskeletal system. 02:13 Reassessment: Patient appears in no apparent distress at this time. Patient and/or bm8 family updated on plan of care and expected duration. Pain level reassessed. Patient is alert, oriented x 3, equal unlabored respirations, skin warm/dry/pink. Patient denies pain at this time. Patient states feeling better. Patient states symptoms have improved. Vital Signs: 07/15 23:37 BP 157 / 107; Pulse 90; Resp 20; Temp 97.2; Pulse Ox 100% ; Weight 83.91 kg; Height 6 vc1 ft. 2 in. ; Pain 0/10; 07/16 01:02 BP 166 / 82; Pulse 78; Resp 18; Temp 97.2; Pulse Ox 98% ; Pain 0/10; bm8 02:13 BP 167 / 83; Pulse 74; Resp 18; Temp 97.2; Pulse Ox 98% ; Pain 0/10; bm8 07/15 23:37 Body Mass Index 23.75 (83.91 kg, 187.96 cm) vc1 07/15 23:37 Pain Scale: Adult vc1 07/16 01:02 Pain Scale: Adult bm8 02:13 Pain Scale: Adult bm8 [facility] Coma Score: 01:02 Eye Response: spontaneous(4). Motor Response: obeys commands(6). Verbal Response: bm8 oriented(5). Total: 15. 02:13 Eye Response: spontaneous(4). Motor Response: obeys commands(6). Verbal Response: bm8 oriented(5). Total: 15. 23:33 Eye Response: spontaneous(4). Motor Response: obeys commands(6). Verbal Response: sp4 oriented(5). Total: 15. ED Course: 07/15 23:17 Patient arrived in ED. gm2 23:25 Jag Horvath MD is Attending Physician. sp4 23:34 Triage completed. vc1 23:34 Arm band placed on right wrist. vc1 07/16 00:20 Jermaine Jacques, RN is Primary Nurse. bm8 01:02 Patient has correct armband on for positive identification. Bed in low position. Call bm8 light in reach. Side rails up X 1. Client placed on continuous cardiac and pulse oximetry monitoring. NIBP monitoring applied. monitor and storage bin tender on. Pulse ox on. NIBP on. Door closed. Noise minimized. Verbal reassurance given. Head of bed elevated. 01:02 No provider procedures requiring assistance completed. Missed attempt(s): 22 gauge in bm8 left forearm. Bleeding controlled, band aid applied, catheter tip intact. Patient maintains SpO2 saturation greater than 95% on room air. 02:13 Provided Education on: POST ER CARE. bm8 02:13 Patient did not have IV access during this emergency room visit. bm8 Administered Medications: 00:49 Drug: Diazepam PO 10 mg PO once Route: PO; bm8 02:14 Follow up: Response: No adverse reaction bm8 Medication: 01:02 VIS not applicable for this client. bm8 Outcome: 02:08 Discharge ordered by . sp4 02:13 Discharged to home ambulatory, bm8 02:13 Condition: stable 02:13 Discharge instructions given to patient, family, Instructed on discharge instructions, follow up and referral plans. no drinking with medication, no driving heavy equipment, medication usage, safety practices, Demonstrated understanding of instructions, follow-up care, medications, Prescriptions given X 1, 02:20 Patient left the ED. bm8 Signatures: Jacque Gamboa RN RN vc1 Jag Horvath MD MD sp4 Trina Reynoso gm2 Jermaine Jacques, RN RN bm8
--- NOTE | 2024-07-16 02:09 | EDPHYS ---
Physician Documentation [facility] Name: Zeke Mackay Sr Age: 59 yrs Sex: Male : 1965 Arrival Date: 07/15/2024 Time: 23:13 Bed 2 Private MD: ED Physician Jag Horvath HPI: 07/15 23:26 This 59 yrs old Male presents to ER via Unassigned with complaints of High sp4 Blood Pressure. 07/16 23:33 Patient presents with acute anxiety, palpitations, and also elevated blood pressure at sp4 home.. 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 - Infectious Disease History:: Denies. - Social history:: Smoking status: Patient denies any tobacco usage or history of. - Family history:: not pertinent. ROS: 07/16 23:33 Constitutional: Negative for fever, chills, and weight loss, positive for anxiety, sp4 positive for palpitations, positive for elevated blood pressure All other systems are negative, Exam: 01:51 Constitutional: This is a well developed, well nourished patient who is awake, alert, sp4 and in no acute distress. Head/Face: Normocephalic, atraumatic. Eyes: Pupils equal round and reactive to light, extra-ocular motions intact. Lids and lashes normal. Conjunctiva and sclera are not injected. Cornea within normal limits. Periorbital areas with no swelling, redness, or edema. ENT: Nares patent. No nasal discharge, no septal abnormalities noted. Tympanic membranes are normal and external auditory canals are clear. Oropharynx with no redness, swelling, or masses, exudates, or evidence of obstruction, uvula midline. Mucous membranes moist. Neck: Trachea midline, no thyromegaly or masses palpated, and no cervical lymphadenopathy. Supple, full range of motion without nuchal rigidity, or vertebral point tenderness. Chest/axilla: Normal chest wall appearance and motion. Nontender with no deformity. No lesions are appreciated. Cardiovascular: Regular rate and rhythm with a normal S1 and S2. No gallops, murmurs, or rubs. Normal PMI, no JVD. No pulse deficits. Respiratory: Lungs have equal breath sounds bilaterally, clear to auscultation and percussion. No rales, rhonchi or wheezes noted. No increased work of breathing, no retractions or nasal flaring. Abdomen/GI: Soft, with normal bowel sounds. No distension or tympany. No guarding or rebound. No evidence of tenderness throughout. Back: No spinal tenderness. No costovertebral tenderness. Skin: Warm, dry with normal turgor. Normal color with no rashes, no lesions, and no evidence of cellulitis. MS/ Extremity: Pulses equal, no cyanosis. Neurovascular intact. Full, normal range of motion. Neuro: Awake and alert, GCS 15, oriented to person, place, time, and situation. Cranial nerves II-XII grossly intact. Motor strength 5/5 in all extremities. Sensory grossly intact. Psych: Awake, alert, with orientation to person, place and time. Behavior, mood, and affect are within normal limits 01:51 ECG was reviewed by the Attending Physician. EKG 0027 sinus rhythm rate 83, sinus arrhythmia otherwise normal Vital Signs: 07/15 23:37 BP 157 / 107; Pulse 90; Resp 20; Temp 97.2; Pulse Ox 100% ; Weight 83.91 kg; Height 6 vc1 ft. 2 in. ; Pain 0/10; 07/16 01:02 BP 166 / 82; Pulse 78; Resp 18; Temp 97.2; Pulse Ox 98% ; Pain 0/10; bm8 02:13 BP 167 / 83; Pulse 74; Resp 18; Temp 97.2; Pulse Ox 98% ; Pain 0/10; bm8 07/15 23:37 Body Mass Index 23.75 (83.91 kg, 187.96 cm) vc1 07/15 23:37 Pain Scale: Adult vc1 07/16 01:02 Pain Scale: Adult bm8 02:13 Pain Scale: Adult bm8 [place] Coma Score: 01:02 Eye Response: spontaneous(4). Motor Response: obeys commands(6). Verbal Response: bm8 oriented(5). Total: 15. 02:13 Eye Response: spontaneous(4). Motor Response: obeys commands(6). Verbal Response: bm8 oriented(5). Total: 15. 23:33 Eye Response: spontaneous(4). Motor Response: obeys commands(6). Verbal Response: sp4 oriented(5). Total: 15. MDM: 07/15 23:29 Medical Screening Exam initiated sp4 07/16 23:33 Differential diagnosis: hypertensive crisis, Malignant HTN, Anxiety, palpitations. Data sp4 reviewed: vital signs, nurses notes, old medical records, lab test result(s), EKG. Consideration of Admission/Observation Escalation of care including admission/observation considered. ED course: Symptoms have resolved after p.o. Valium. Blood pressure is normal on repeat check. Patient stable for discharge home. Advised as needed Valium for anxiety attacks.. 07/15 23:39 Order name: Basic Metabolic Panel; Complete Time: 01:51 sp4 07/15 23:39 Order name: CBC with Diff; Complete Time: 01:16 sp4 07/15 23:39 Order name: Troponin HS; Complete Time: 01:51 sp4 07/15 23:39 Order name: EKG; Complete Time: 23:39 sp4 07/15 23:39 Order name: Cardiac monitoring; Complete Time: 00:33 sp4 07/15 23:39 Order name: EKG - Nurse/Tech; Complete Time: 00:33 sp4 07/15 23:39 Order name: Labs collected and sent; Complete Time: 00:49 sp4 07/15 23:39 Order name: O2 Per Protocol; Complete Time: 00:33 sp4 07/15 23:39 Order name: O2 Sat Monitoring; Complete Time: 00:33 sp4 EC:27 Rate is 83 beats/min. Rhythm is regular, Sinus arrythmia. QRS [place] is Normal. [place] sp4 interval is normal. QRS interval is normal. QT interval is normal. No Q waves. T waves are Normal. T waves are Inverted in leads V5, V6. No ST changes noted. Clinical impression: No evidence of ischemia. Interpreted by me. Reviewed by me. Administered Medications: 00:49 Drug: Diazepam PO 10 mg PO once Route: PO; bm8 02:14 Follow up: Response: No adverse reaction bm8 Disposition Summary: 07/16/24 02:08 Discharge Ordered Notes: Location: Home sp4 Problem: new sp4 Symptoms: have improved sp4 Condition: Stable sp4 Diagnosis - Acute anxiety attack, elevated blood pressure reading sp4 Followup: sp4 - With: Private Physician - When: 7 - 10 days - Reason: Recheck today's complaints Discharge Instructions: - Discharge Summary Sheet sp4 - Managing Anxiety, Adult sp4 Forms: - Patient Portal Instructions sp4 Prescriptions: - Valium 5 mg Oral tablet - take 1 tablet ORAL route once daily As needed PRN anxiety; 20 tablet; Refills: sp4 0, Product Selection Permitted Signatures: Dispatcher [employer] Jacque Mock, RN RN vc1 Jag Horvath MD MD sp4 Jermaine Jacques RN RN bm8
[2024-07-16 02:24] VITALS: TEMP 97.2
[2024-07-16 02:26] VITALS: O2SAT 98
[2024-07-16 02:28] VITALS: BP 167/83
--- NOTE | 2024-07-16 16:44 | EKG ---
Test Date: 2024-07-16 Test Time: 00:27:23 Sales Review Clerk: NAYE MEASUREMENT RESULTS: Intervals: Rate: 83 IL: 164 QRSD: 84 QT: 374 QTc: 439 [place]: P: 63 IL: 164 QRS: 86 T: 209 INTERPRETIVE STATEMENTS: Sinus rhythm with marked sinus arrhythmia Septal infarct, age undetermined Lateral infarct, age undetermined ST & T wave abnormality, consider inferior ischemia Abnormal ECG Compared to ECG 07/15/2024 01:09:44 ST (T wave) deviation now present Atrial premature complex(es) no longer present T-wave abnormality no longer present Myocardial infarct finding still present Possible ischemia still present Electronically Signed On 07-16-24 16:42:48 SPA SUPERVISOR by Lucas Huang
--- NOTE | 2024-07-16 16:49 | EKG ---
Test Date: 2024-07-15 Test Time: 01:09:44 Facing Grinder: KEMI MEASUREMENT RESULTS: Intervals: Rate: 72 IA: 178 QRSD: 82 QT: 430 QTc: 470 [place]: P: 45 IA: 178 QRS: 21 T: 141 INTERPRETIVE STATEMENTS: Sinus rhythm with premature atrial complexes Septal infarct, age undetermined T wave abnormality, consider lateral ischemia Abnormal ECG Compared to ECG 07/14/2024 22:22:12 T-wave abnormality now present ST (T wave) deviation no longer present Myocardial infarct finding still present Possible ischemia still present Electronically Signed On 07-16-24 16:45:34 VICE SQUAD POLICE OFFICER by Lucas Huang
== END 2024-07-16 02:20 | disposition home or self-care (01) ==
LOC: ER 23:13
DX: F41.0 Panic disorder [episodic paroxysmal anxiety] (principal); I10 Essential (primary) hypertension; Z95.1 Presence of aortocoronary bypass graft
CPT/HCPCS: 36415; 80048; 84484; 85025; 93005; 99284

== ENCOUNTER 2024-07-16 11:33 | Emergency (ER) | payer OTHER ==
--- OUTSIDE RECORDS SUMMARY | 2024-07-16 11:40 | XMS REPORT | Clinical Summary ---
Author Name Unknown Organization 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 60 mL 4 3:43 PM LADLE REPAIRMAN 04/15/20 24 025 Discontinued fluconazole (Diflucan) 40 [...] 9% indicating poor diabetic control 01/02/2024 04/14/2024 director service current use of systemic steroid 01/02/2024 04/14/2024 Diabetic ketoacidosis 2023 Overview (01/01/2024): Hospitalized locally 12/03/2023-12/06/2023 Encounters Date Type Department Care Team Description 07/15/2024 10:08 AM LADLE REPAIRMAN Hospital Encounter Main CT IMAGING [address] [facility] Main dg, 3rd [place] [address] Mary Kay Santamaria APRN Adenocarcinoma of stomach 07/15/2024 9:49 AM LADLE REPAIRMAN Hospital Encounter Diagnostic Laboratory Center [address] [facility] Main dg, [place] [address] Mary Kay Santamaria APRN Adenocarcinoma of stomach 07/07/2024 Orders Only [facility] [address] [facility] Main dg, 7th Floor Elevator A [place], [place] [phone] Gillian Gomez PA-C Adenocarcinoma of stomach (Primary Dx) 07/06/2024 Telephone [facility] - Surgical Oncology [address] [place] [address] Main [facility], 7th [place] [address] Mary Kay Santamaria, TECHNICAL RESEARCH SCIENTIST 07/06/2024 Orders Only [facility] Oncology [address] [place] [address] Main [facility], 7th [place] [address] Mray Kay Santamaria, TECHNICAL RESEARCH SCIENTIST 07/06/2024 Orders Only [facility] [address] [place] [address] Main [facility], 7th [place] [address] Gillian Gomez PA-C Adenocarcinoma of stomach (Primary Dx) 07/06/2024 Multidisciplinary Visit [facility] [address] [place] [address] Main [facility], 7th [place] [address] Gillian Gomez PA-C 07/06/2024 Orders Only [facility] [address] [place] [address] Main [facility], 7th [place] [address] Donnell Van Adenocarcinoma of stomach (Primary Dx) 07/02/2024 11:00 AM LADLE REPAIRMAN Nutrition Clinical Nutrition For your Nutrition appointment location directions please call: Marianela Hutchinson MD Munder, Kathryn, SCOTT Left without seen 07/02/2024 10:30 AM LADLE REPAIRMAN Follow-Up [facility] Oncology [address] [place] [address] Main dg, 7th [place] [address] John Fong MD Adenocarcinoma of stomach 07/02/2024 Documentation [facility] [address] [place] [address] Main [facility], 7th [place] [address] John Fong MD 06/30/2024 3:33 PM LADLE REPAIRMAN Anesthesia Event Perioperative Evaluation and Management Center [address] [place] [address] Main [facility], 6th [place] [address] Lien Antonio, RN 06/30/2024 12:25 PM LADLE REPAIRMAN Anesthesia Event Endoscopy Center [address] [place] [address] Main [facility], 5th Floor Elevator C [place] [phone] Susana Kelly MD 06/30/2024 12:00 PM LADLE REPAIRMAN - 06/30/2024 12:45 PM LADLE REPAIRMAN Surgery [facility] [address] [place] [address] Main [facility], 5th [place] [address] Brandon Alcala MD DIAGNOSTIC UPPER GASTROINTESTINAL ENDOSCOPY 06/30/2024 10:15 AM LADLE REPAIRMAN - 06/30/2024 2:24 PM LADLE REPAIRMAN Hospital Encounter Endoscopy Center [address] [place] [address] Main [facility], 5th Floor Elevator C [place] [phone] Brandon Alcala MD Adenocarcinoma of stomach Discharge Disposition: Home 06/30/2024 Travel 06/29/2024 9:00 AM LADLE REPAIRMAN Consult Perioperative Evaluation and Management [address] [place] [address], 6th Floor Elevator A [place] [phone] Mary Kay Santamaria APRN Vu, Khanh D, MD Encounter for preprocedural cardiovascular examination (Primary Dx); Coronary arteriosclerosis, not otherwise specified; Cardiomyopathy, not otherwise specified; Hypertension; assisted current use of 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; Type 2 diabetes mellitus with hyperglycemia; Dyslipidemia; Hyponatremia; Hyperkalemia; Adenocarcinoma of stomach; Paroxysmal atrial fibrillation; Hyperlipidemia, not otherwise specified 06/29/2024 8:00 AM LADLE REPAIRMAN POEM Appointments Perioperative Evaluation and Management Center [address] [place] [address] Main [facility], 6th [place] [address] Marianela Hutchinson MD 06/29/2024 7:30 AM LADLE REPAIRMAN - 06/29/2024 11:59 PM LADLE REPAIRMAN Hospital Encounter [facility] Cardiology [address] [place] [address] Main [facility], 2nd [place] [address] Mary Kay Santamaria APRN Adenocarcinoma of stomach Discharge Disposition: Home 06/29/2024 Travel 06/23/2024 Documentation [facility] [address] [place] [address] Main [facility], 7th [place] [address] Mony Saavedra RN 06/22/2024 12:20 PM LADLE REPAIRMAN Follow-Up [facility] [address] [place] [address], [address] [place] [address] [place] [address] Marianela Hutchinson MD Adenocarcinoma, NOS of stomach, NOS 06/22/2024 Orders Only [facility] [address] [place] [address], [address] [place], [place] [address]ator [place] [address] Radha Castellon, [facility] 06/22/2024 Travel 06/20/2024 10:45 AM LADLE REPAIRMAN - 06/20/2024 11:59 PM LADLE REPAIRMAN Hospital Encounter Diagnostic Imaging Center [address] [place] [address], 3rd [place] [address] Adenocarcinoma, NOS of stomach, NOS; Malignant neoplasm of overlapping sites of esophagus Discharge Disposition: Home 06/20/2024 10:08 AM LADLE REPAIRMAN - 06/20/2024 10:44 AM LADLE REPAIRMAN Hospital Encounter [facility] [address] [place] [address], [facility] [place] [address] Gillian Gomez PA-C Adenocarcinoma, NOS of stomach, NOS Discharge Disposition: Home 06/16/2024 [place] [facility] - Surgical Oncology [address] [place] [address], [address] [place], [place] [address]ator [place] [address] Mary Kay Santamaria APRN 06/15/2024 1:30 PM LADLE REPAIRMAN [facility] [address] [facility], 8th [place] [address] Marianela Hutchinson MD [facility], Jorge Tyson RN Adenocarcinoma of stomach (Primary Dx); Iron deficiency anemia, not otherwise specified 06/15/2024 12:40 PM LADLE REPAIRMAN Follow-Up [facility] [address] [place] [address], [address] [place] [address] [place] [address] Marianela Hutchinson MD Adenocarcinoma, NOS of stomach, NOS; Malignant neoplasm of overlapping sites of esophagus 06/15/2024 10:24 AM LADLE REPAIRMAN - 06/15/2024 11:59 PM LADLE REPAIRMAN Hospital Encounter Diagnostic Laboratory Center [facility]5 [facility] Main [facility], [place] [address] Marianela Hutchinson MD Adenocarcinoma of stomach; Adenocarcinoma, NOS of stomach, NOS Discharge Disposition: Home 06/15/2024 Orders Only [facility] [address] [place] [address] Main dg, 7th [place] [address] Radha Castellon [facility] Adenocarcinoma of stomach (Primary Dx) 06/15/2024 Orders Only [facility] [address] [place] [address] Main [facility], 7th [place] [address] Gillian Gomez PA-C 06/15/2024 Travel 06/15/2024 Telephone [facility] - Gastroenterology, Hepatology & Nutrition [address] [place] [address] Main [facility], 7th [place] [address] Arnaldo Araujo PA-C 06/15/2024 Multidisciplinary Visit [facility] [address] [place] [address] Main [facility], 7th [place] [address] Lakeshia Pablo PA 06/15/2024 Orders Only [facility] [address] [place] [address] Main [facility], 7th [place] [address] Marianela Hutchinson MD Adenocarcinoma of stomach (Primary Dx) 06/12/2024 Prep for Surgery [facility] - Gastroenterology, Hepatology & Nutrition [address] [place] [address] Main [facility], [address] [place] [address] [place] [address] Arnaldo Araujo PA-C Adenocarcinoma of stomach (Primary Dx) 06/12/2024 Telephone [facility] - Surgical Oncology [facility] Main [facility], 7th [place] [address] Mary Kay Santamaria APRN 06/12/2024 Orders Only [facility] - Surgical Oncology [facility]5 [facility] Main dg, 7th [place] [address] Mary Kay Santamaria, FRANK Adenocarcinoma of stomach (Primary Dx) 06/10/2024 Orders Only [facility] - Surgical Oncology [address] [place] [address] Main [facility], 7th [place] [address] Mary Kay Santamaria APRN Adenocarcinoma of stomach (Primary Dx) 06/05/2024 Telephone [facility] - Gastroenterology, Hepatology & Nutrition [address] [place] [address] Main [facility], 7th [place] [address] Arnaldo Araujo PA-C 06/03/2024 5:30 PM LADLE REPAIRMAN [facility] [address] [facility], 8th [place] [address] Marianela Hutchinson MD Lewandowski, Teresa M, RN Adenocarcinoma of stomach (Primary Dx) 06/03/2024 Travel 06/02/2024 Telephone [facility] [address] [place] [address], 7th [place] [address] Mony Saavedra RN 06/01/2024 1:00 PM LADLE REPAIRMAN Infusion [facility] [address] [facility], Floor 6 [place] [address] Marianela Hutchinson MD Shaik, Anna Marie B, RN Adenocarcinoma of stomach (Primary Dx); Iron deficiency anemia, not otherwise specified 06/01/2024 10:53 AM LADLE REPAIRMAN - 06/01/2024 11:59 PM LADLE REPAIRMAN Hospital Encounter Diagnostic Laboratory Center [address] [place] [address], [place] [address] Marianela Hutchinson MD Adenocarcinoma of stomach; Iron deficiency anemia, not otherwise specified Discharge Disposition: Home 06/01/2024 Orders Only [facility] [address] [place] [address] Main [facility], 7th [place] [address] Marianela Hutchinson MD 06/01/2024 Orders Only [facility] [address] [place] [address] Main [facility], 7th [place] [address] Radha Castellon Werner Adenocarcinoma of stomach (Primary Dx); Iron deficiency anemia, not otherwise specified 06/01/2024 Travel 06/01/2024 Orders Only [facility] - Ambulatory Treatment Center [address] [facility], Floor 6 [place] [address] Marianela Hutchinson MD Adenocarcinoma of stomach (Primary Dx) 05/26/2024 Telephone [facility] - Gastroenterology, Hepatology & Nutrition [address] [facility] Main [facility], 7th [place] [address] Arnaldo Araujo PA-C 05/22/2024 Telephone [facility] - Gastroenterology, Hepatology & Nutrition [address] [facility] Main [facility], 7th [place] [address] Arnaldo Araujo PA-C 05/22/2024 Orders Only [facility] - Gastroenterology, Hepatology & Nutrition [address] [place] [address] Main [facility], 7th [place] [address] Arnaldo Araujo PA-C Candidal esophagitis (Primary Dx) 05/20/2024 4:30 PM LADLE REPAIRMAN - 05/20/2024 11:59 PM LADLE REPAIRMAN Hospital Encounter Ambulatory Treatment Center - [address], 2nd Floor, [place] [address] Marianela Hutchinson MD Lewandowski, Teresa M RN Adenocarcinoma of stomach Discharge Disposition: Home 05/19/2024 12:44 PM LADLE REPAIRMAN Anesthesia Event [facility]oscopy Center [address] [place] [address], 5th [place] [address] Maurice Ferrera MD [facility] 05/19/2024 12:00 PM LADLE REPAIRMAN - 05/19/2024 1:10 PM LADLE REPAIRMAN Surgery [facility]oscopy Center [address] [place] [address], 5th [place] [address] Brandon Alcala MD UPPER GASTROINTESTINAL ENDOSCOPY OF ESOPHAGUS, STOMACH, OR DUODENUM ANDJ ADJACENT STRUCTURES, WITH ENDOSCOPIC ULTRASOUND EXAMINATION 05/19/2024 11:17 AM LADLE REPAIRMAN - 05/19/2024 2:49 PM LADLE REPAIRMAN Hospital Encounter Endoscopy Center [address] [place] [address] Main [facility], 5th [place] [address] Brandon Alcala MD Adenocarcinoma of stomach Discharge Disposition: Home 05/19/2024 Travel 05/18/2024 1:00 PM LADLE REPAIRMAN Infusion [facility] - Ambulatory Treatment Center 2[address] [facility], Floor 6 [place] [address] Marianela Hutchinson MD Rupp, Alexa B, RN Adenocarcinoma of stomach (Primary Dx) 05/18/2024 12:20 PM LADLE REPAIRMAN Follow-Up [facility] [address] [place] [address], [facility] [place] [address] Marianela Hutchinson MD Adenocarcinoma, NOS of stomach, NOS 05/18/2024 11:00 AM LADLE REPAIRMAN POEM Appointments Perioperative Evaluation and Management Center [address] [place] [address], [facility] [place] [address] Marianela Hutchinson MD 05/18/2024 10:32 AM LADLE REPAIRMAN - 05/18/2024 11:59 PM LADLE REPAIRMAN Hospital Encounter Diagnostic Laboratory Center [address] [place] [address], [place] [address] Gillian Gomez PA-C Adenocarcinoma, NOS of stomach, NOS Discharge Disposition: Home 05/18/2024 Orders Only [facility] [address] [place] [address], [address] [place] [address] [place] [address] Marianela Hutchinson MD Adenocarcinoma of stomach (Primary Dx) 05/18/2024 Orders Only [facility] [address] [place] [address], [facility] [place] [address] Radha Castellon, [facility] Adenocarcinoma of stomach (Primary Dx); Iron deficiency anemia, not otherwise specified 05/18/2024 Travel 05/15/2024 11:59 PM LADLE REPAIRMAN Anesthesia Event Perioperative Evaluation [facility] Management Center [address] [place] [address], [address] [place] [address] [place] [address] Eri Lynne, RN 05/06/2024 5:30 PM LADLE REPAIRMAN [facility] [address] [facility], 8th [place] [address] Marianela Hutchinson MD Pagara, Leni S RN Adenocarcinoma of stomach 05/04/2024 12:36 PM LADLE REPAIRMAN - 05/04/2024 11:59 PM LADLE REPAIRMAN Hospital Encounter Ambulatory Treatment Center - Main Building [address] [place] [address], 2nd Floor, [place] [address] Gillian Gomez PA-C Jo, Edifia Sungsoon, RN Adenocarcinoma of stomach (Primary Dx) Discharge Disposition: Home 05/04/2024 12:20 PM LADLE REPAIRMAN Follow-Up [facility] [address] [place] [address], 7th [place] [address] Marianela Hutchinson MD Adenocarcinoma, NOS of stomach, NOS 05/04/2024 11:10 AM LADLE REPAIRMAN - 05/04/2024 12:35 PM LADLE REPAIRMAN Hospital Encounter Diagnostic Laboratory Center [address] [place] [address], [facility] [place] [address] Gillian Gomez PA-C Adenocarcinoma, NOS of stomach, NOS; Adenocarcinoma of stomach Discharge Disposition: Home 05/04/2024 Orders Only [facility] [address] [place] [address], 7th Floor Elevator [place] [id number] Marianela Hutchinson MD Adenocarcinoma of stomach (Primary Dx) 05/04/2024 Orders Only [facility] [address] [place] [address], 7th Floor Elevator A [place] [id number] Radha Castellon Werner Adenocarcinoma of stomach (Primary Dx) 05/04/2024 Travel 04/30/2024 Orders Only [facility] - Surgical Oncology [address] [place] [address], 7th [place] [address] Mary Kay Santamaria APRN Adenocarcinoma of stomach (Primary Dx); Paroxysmal atrial fibrillation; Hyperlipidemia, not otherwise specified; Type 2 diabetes mellitus with hyperglycemia 04/27/2024 8:05 PM LADLE REPAIRMAN Ancillary Procedure Image Library [address] [place] [address] Cancer 04/27/2024 8:00 PM LADLE REPAIRMAN Ancillary Procedure Image Library [address] [place], [place] [id number] Cancer 04/27/2024 Orders Only [facility] [address] [place] [address], [facility] Floor Elevator [place] [phone] Donnell Van Adenocarcinoma of stomach (Primary Dx) 04/24/2024 Documentation [facility] Procedures Center [address] [facility], 8th [place] [address] Mary Kay Santamaria, TECHNICAL RESEARCH SCIENTIST 04/24/2024 Orders Only [facility] - Surgical Oncology [address] [place] [address], [facility] Floor Elevator [place] [phone] Mary Kay Santamaria, TECHNICAL RESEARCH SCIENTIST Adenocarcinoma, NOS of stomach, NOS (Primary Dx) 04/24/2024 Telephone [facility] - Surgical Oncology [address] [place], [place] [address] Mary Kay Santamaria, TECHNICAL RESEARCH SCIENTIST 04/22/2024 Lab Requisition [facility] Sincere Moralez MD Jain, Shilpa, MD 04/21/2024 Orders Only [facility] [address] [place] [address], [address] [place], [place] [id number] Gillian Gomez PA-C Adenocarcinoma, NOS of stomach, NOS (Primary Dx); Adenocarcinoma of stomach 04/16/2024 Telephone [facility] [address] [place] [address] 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, fleet coordinator Call 04/15/2024 10:09 AM LADLE REPAIRMAN Anesthesia Event MAIN OR [address] [place] [address] Meenakshi Crowe MD Miller, Wendy, PAXTON 04/15/2024 10:05 AM LADLE REPAIRMAN - 04/15/2024 1:25 PM LADLE REPAIRMAN Surgery MAIN OR [address] [place] [address] John Fong MD ROBOTIC ASSISTED SURGICAL LAPAROSCOPY 04/15/2024 7:32 AM LADLE REPAIRMAN - 04/15/2024 11:50 PM LADLE REPAIRMAN Hospital Encounter MAIN OR [address] [place] [address] John Fong MD Adenocarcinoma of stomach (Primary Dx) Discharge Disposition: Home 04/15/2024 Travel 04/14/2024 2:30 PM LADLE REPAIRMAN Consult [facility] - Surgical Oncology [address] [place] [address], 7th [place] [address] Gillian Gomez PA-C Badgwell, Brian, MD Adenocarcinoma, NOS of stomach, NOS (Primary Dx); Nausea 04/14/2024 Documentation [facility] - Surgical Oncology [address] [place] [address], 7th [place] [address] John Fong MD 04/13/2024 3:00 PM LADLE REPAIRMAN Consult [facility] [address] [place] [address], 7th [place] [address] Marianela Hutchnison MD Mass of stomach (Primary Dx) 04/13/2024 2:02 PM LADLE REPAIRMAN Anesthesia Event Perioperative Evaluation and Management Center [address] [place] [address], 6th [place] [address] Curtis Moctezuma PA 04/12/2024 8:22 AM LADLE REPAIRMAN - 04/12/2024 3:42 PM LADLE REPAIRMAN Emergency MAIN P06B [address] [place] [address] Nghia Zhu MD Elsayem, Ahmed, MD Nausea and vomiting (Primary Dx); Gastric cancer; Pancreatitis Discharge Disposition: Left Against Medical Advice 04/12/2024 Travel 04/09/2024 8:25 PM LADLE REPAIRMAN Ancillary Procedure Image Library [address] [place] [address] Margoth Souza MD Cancer 04/09/2024 8:20 PM LADLE REPAIRMAN Ancillary Procedure Image Library [address] [place] [address] Margoth Souza MD Cancer 04/09/2024 8:15 PM LADLE REPAIRMAN Ancillary Procedure Image Library [address] [place] [address] Margoth Souza MD Cancer 04/09/2024 8:10 PM LADLE REPAIRMAN Ancillary Procedure Image Library [address] [place] [address] Margoth Souza MD Cancer 04/09/2024 8:05 PM LADLE REPAIRMAN Ancillary Procedure Image Library [address] [place] [address] Margoth Souza MD Cancer 04/09/2024 8:00 PM LADLE REPAIRMAN Ancillary Procedure Image Library [address] [place] [address] Margoth Souza MD Cancer 04/09/2024 10:48 AM LADLE REPAIRMAN - 04/09/2024 11:59 PM LADLE REPAIRMAN Hospital Encounter Diagnostic Laboratory Center [address] [place] [address], [facility] [place] [address] Ceci Nicholson MD Encounter for other preprocedural examination; Atherosclerosis of coronary 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, not otherwise specified; 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 Discharge Disposition: Home 04/09/2024 10:00 AM LADLE REPAIRMAN POEM Appointments Perioperative Evaluation and Management Center [address] [place] [address], 6th [place] [address] Margoth Souza MD 04/09/2024 9:56 AM LADLE REPAIRMAN - 04/09/2024 10:47 AM LADLE REPAIRMAN Hospital Encounter [facility] - Cardiology [address] [place] [address], 2nd [place] [address] Ceci Nicholson MD Adenocarcinoma of stomach; Hyperlipidemia, not otherwise specified; Encounter for other preprocedural examination; Atherosclerosis of coronary 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, not otherwise specified Discharge Disposition: Home 04/09/2024 9:00 AM LADLE REPAIRMAN Consult Perioperative Evaluation and Management [address] [place] [address], 6th [place] [address] Mary Kay Santamaria APRN Misoi, Mercy W, MD Encounter for other preprocedural examination (Primary Dx); Adenocarcinoma of stomach; Paroxysmal atrial fibrillation; Hypertension; 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; Hyperlipidemia, not otherwise specified; Current use of 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; Atherosclerosis of coronary 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, not otherwise specified 04/09/2024 Travel 04/08/2024 Prep for Surgery [facility] - Surgical Oncology [address] [place] [address], [address] [place] [address] [place] [address] Mary Kay Santamaria APRN Adenocarcinoma of stomach (Primary Dx); Mass of stomach 04/08/2024 Orders Only [facility] - Surgical Oncology [address] [place] [address], [address] [place] [address] [place] [address] Mary Kay Santamaria APRN Adenocarcinoma of stomach (Primary Dx); Paroxysmal atrial fibrillation; Hypertension; 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; Hyperlipidemia, not otherwise specified; Current use of 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 04/08/2024 Orders Only [facility] [address] [place] [address], [address] [place], [place] [address] [address] Gillian Gomez PA-C Adenocarcinoma, NOS of stomach, NOS (Primary Dx) 04/06/2024 Orders Only Genitourinary Cancer [address], [facility] [place] [address] Roberto Poole PA 04/06/2024 [facility] [address], [facility] [place] [address] Roberto Poole PA Mass of stomach (Primary Dx) 04/06/2024 Orders Only [facility] [address] [place] [address], [facility] [place] [address] Roberto Poole PA Mass of stomach (Primary Dx) 04/06/2024 Telephone [facility] [address] [place] [address], [facility] [place] [address] Anais Meng RN 02/11/2024 Travel 02/10/2024 3:30 PM CDT Telemedicine [facility] [address] [place] [address], 7th [place] [address] Margoth Souza MD Renal mass (Primary Dx) 01/02/2024 7:15 AM CDT Ancillary Procedure MAIN OR [address] [place] [phone] Margoth Souza MD 01/02/2024 7:00 AM CDT - 01/02/2024 11:40 AM CDT Surgery MAIN OR [address] [place] [address] Margoth Souza MD ROBOTIC ASSISTED PARTIAL NEPHRECTOMY 01/02/2024 6:58 AM CDT Anesthesia Event MAIN OR [address] [place] [address] Alonzo Liu MD Majekodumi, Jessy, PAXTON 01/02/2024 5:04 AM CDT - 01/03/2024 5:05 PM CDT Hospital Encounter MAIN P09B [address] [place] [address] Margoth Souza MD Renal mass (Primary Dx) Discharge Disposition: Home 01/02/2024 Travel 12/31/2023 1:04 PM CDT - 12/31/2023 11:59 PM CDT Hospital Encounter Main CT IMAGING [address] [place] [address], 3rd [place] [address] Margoth Souza MD Renal mass Discharge Disposition: Home 12/31/2023 8:00 AM CDT Consult [facility] [address] [place] [address], 6th [place] [address] Nakia Kirby APRN Khan, Sonya, MD Type 2 diabetes mellitus with hyperglycemia [E11.65] (Primary Dx); Pre-surgery evaluation 12/30/2023 9:30 AM CDT Office Visit [facility] [address] [place] [address], 7th [place] [address] Margoth Souza MD Renal mass 12/30/2023 Travel 12/30/2023 Telephone [facility] [address] [place] [address], 6th [place] [address] Winnie Archibald, RN Appointment (Cannot get internet-phone broke) 12/30/2023 Orders Only [facility] [address] [facility], 7th [place] [address] Roberto Poole PA Renal mass (Primary Dx) 12/29/2023 Orders Only [facility] [address] [place] [address], [facility] [place] [address] Veronica Del Castillo APRN 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); Endocrine/metabolic screening; Renal cell carcinoma <Left side> 12/25/2023 8:36 AM CDT Anesthesia Event [facility] [address] [place], [place] [address] [address] Lien Antonio RN 12/23/2023 10:30 AM CDT Consult Perioperative Evaluation and Management [address] [place], [place] [address] [address] Margoth Souza MD Oh, Jeong, MD Encounter for other preprocedural examination (Primary Dx); Renal mass; Hyperlipidemia, not otherwise specified 12/23/2023 9:00 AM CDT POEM Appointments [facility] [address] [place] [address], [address] [place], [place] [address] [address] Margoth Souza MD Pre-surgery evaluation (Primary Dx) 12/23/2023 8:45 AM CDT - 12/23/2023 11:59 PM CDT Hospital Encounter [facility] [address] [place] [address] Margoth Souza MD Renal mass Discharge Disposition: Home 12/23/2023 Travel 12/09/2023 9:33 AM CDT - 12/09/2023 11:59 PM CDT Hospital Encounter [facility] [address] [place] [address] Veronica Del Castillo APRN 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; Endocrine/metabolic screening Discharge Disposition: Home 12/09/2023 8:30 AM CDT Consult Endocrine Center [address] [facility], 6th [place] [address] Mary Jane Cassidy MD 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); Endocrine/metabolic screening; Renal cell carcinoma <Left side> 12/09/2023 Travel 10/23/2023 Orders Only [facility] [address] [facility], 7th [place] [address] Roberto Poole PA Renal mass (Primary Dx); Adrenal mass 10/03/2023 9:30 AM CDT - 10/03/2023 11:59 PM CDT Hospital Encounter Interventional Radiology [address] [place] [address], 4th [place] [address] Shazia Arriaza MD McRae, Stephen, MD Renal mass Discharge Disposition: Home 10/03/2023 8:30 AM CDT - 10/03/2023 9:29 AM CDT Hospital Encounter [facility] [address] [place] [address] Margoth Souza MD Renal mass Discharge Disposition: Home 10/03/2023 Travel 10/02/2023 8:24 AM CDT - 10/02/2023 11:59 PM CDT Hospital Encounter Interventional Radiology [address] [place] [address], 4th [place] [address] Margoth Souza MD Ho, Thanh-Trang D, PA-C Encounter for other preprocedural examination (Primary Dx); Renal mass; 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 Discharge Disposition: Home 10/02/2023 Travel 09/24/2023 7:46 AM CDT - 09/24/2023 11:59 PM CDT Hospital Encounter [facility] [address] [place] [address] Roberto Poole PA Adrenal mass Discharge Disposition: Home 09/20/2023 Orders Only [facility] [address] [place] [address], 7th [place] [address] Roberto Poole PA Adrenal mass (Primary Dx) 09/19/2023 11:45 AM CDT Ancillary Procedure X-Ray Outpatient Center [address] [place] [address], [facility] Floor [facility] [place] [address] Shazia Arriaza MD Renal mass 09/19/2023 9:20 AM CDT - 09/19/2023 11:59 PM CDT Hospital Encounter [facility] [address] [place] [address] Shazia Arriaza MD Adenoma, NOS of adrenal gland, NOS <Left> Discharge Disposition: Home 09/19/2023 Orders Only Interventional Radiology [address] [place] [address], 4th [place] [address] Abilio Ng PA-C Renal mass (Primary Dx) 09/19/2023 Travel 09/19/2023 Telephone MD Gim[facility] [address] [place] [address] Barbara Rees MA 09/16/2023 4:00 PM CDT - 09/16/2023 11:59 PM CDT Hospital Encounter [facility] [address] [place] [address] Shazia Arriaza MD Renal mass; Adrenal mass Discharge Disposition: Home 09/16/2023 2:00 PM CDT Office Visit [facility] [address] [place] [address], 7th [place] [address] Margoth Souza MD Renal mass (Primary Dx); Adrenal mass; Adenoma, NOS of adrenal gland, NOS <Left>; 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 [facility] FLUORO CENTRAL VENOUS AC CESS DEV PLACEMENT 04/15/2024 Neck/N/A Procedure: FLUORO GUIDANCE FOR CENTRAL VENOUS ACCESS DEVICE PLACEMENT, REPLACEMENT, OR REMOVAL; Surgeon: John Fong MD; Location: MAIN OR; Service: SURG ONC - GASTRIC/HIPEC Medical devices from this surgery are in the Medical Devices section. [facility] US VASC ACCESS SITS VSL PATENCY NDL [...] Alcala MD; Location: MAIN ENDOSCOPY; Service: GASTROENTEROLOGY [place] ESOPHAGOGASTRODUODENOSCOP Y TRANSORAL DIAGNOSTIC 06/30/2024 Esophagus/N/A Procedure: [...] locally 12/03/2023-12/06/2023 of note, pt was on [facility] Peripheral vascular disease 2023 Left LE s/p [...] on file Legal Sex Male 11:38 AM LADLE REPAIRMAN Gender Identity Not on file Sexual Orientation Not on file Occupation Industry Job Start Date Job End Date retired from [employer] Not on file N ot on file Not on file Travel History Travel Start Travel End [place] 04/12/2024 04/12/2024 Obstetrics History Last Filed Vital Signs Vital Sign Reading Time Taken Comments Blood Pressure 181/94 07/02/2024 10:23 AM LADLE REPAIRMAN Pulse 71 07/02/2024 10:23 AM LADLE REPAIRMAN Temperature 36.1 C (97 F) 06/30/2024 1:35 PM LADLE REPAIRMAN Respiratory Rate 18 07/02/2024 10:23 AM LADLE REPAIRMAN Oxygen Saturation 99% 07/02/2024 10:23 AM LADLE REPAIRMAN Inhaled Oxygen Concentration - - Weight 84.2 kg (185 lb 10 oz) 06/30/2024 10:35 A M LADLE REPAIRMAN Height 188 cm (6' 2") 05/19/2024 11:53 AM LADLE REPAIRMAN Body Mass Index 23.83 05/19/2024 11:53 AM LADLE REPAIRMAN Plan of Treatment Upcoming Encounters Date Type Department Care Team (Late st Contact Info) Description 07/16/2024 2:40 PM LADLE REPAIRMAN Follow-Up [facility] [address] [place] [address], 7th [place] [address] Marianela Hutchinson MD [address] [place] [address] [email or web address] 02/01/2025 11:30 AM CDT Appointment [facility] [address] [place] [address], [place] [address] Veronica Del Castillo, TECHNICAL RESEARCH SCIENTIST [address] [place] [address] [email or web address] 02/01/2025 11:45 AM CDT Appointment Main CT IMAGING [address] [place] [address], 3rd [place] [address] Veronica Del Castillo, TECHNICAL RESEARCH SCIENTIST [address] [place] [address] [email or web address] 02/01/2025 3:00 PM CDT Follow-Up Endocrine Center [address] [place] [address], 6th [place] [address] Mary Jane Cassidy MD [address] [place] [address] [email or web address] 02/05/2025 10:45 AM CDT Lab [facility] [address] [place] [address], [facility] [place] [address] Margoth Souza MD [address] [place] [address] [email or web address] 02/05/2025 11:15 AM CDT Ancillary Procedure X-Ray Outpatient Center [address] [place] [address], [address] [place] [address] Margoth Souza MD [address] [place] [address] [email or web address] 02/05/2025 11:55 AM CDT Ancillary Procedure CT Imaging [address] [place] [address], [address] [place] [address] Margoth Souza MD [address] [place] [address] [email or web address] 02/08/2025 2:30 PM CDT Telemedicine [facility] [address] [place] [address], [address] [place] [address] Margoth Souza MD [address] [place] [address] [email or web address] Health Maintenance Due Date Last Done Comments COVID-19 Vaccine (#1) 01/09/1969 Pneumococcal Vaccine: 50+ Years (1 of 2 - PCV) 983 01/09/1975 Influenza Vaccine (#1) 2024 08/04/2018 Medical Devices Implanted Type Area Sales Person Device Identifier Shelf Expiration Date Model / Serial / Lot Slade Muhammad 6fr - [id number] Implanted:Qty: 1 on 04/15/2024 by John Fong MD at [facility] Implant Right: Neck [employer] 12/17/2024 [id number] / / [id number] Procedures Procedure Name Priority Date/Time Associated Diagnosis Comments CT CHEST ABDOMEN PELVIS W CONTRAST Routine 07/15/2024 4:38 PM LADLE REPAIRMAN Adenocarcinoma of stomach .CBC Routine 07/15/2024 10:01 AM LADLE REPAIRMAN Adenocarcinoma of stomach CARCINOEMBRYONIC ANTIGEN Routine 025 10:01 AM LADLE REPAIRMAN Adenocarcinoma of stomach LACTATE DEHYDROGENASE Routine 07/15/2024 10:01 AM LADLE REPAIRMAN Adenocarcinoma of stomach PHOSPHORUS LEVEL Routine 07/15/2024 10:01 AM LADLE REPAIRMAN Adenocarcinoma of stomach MAGNESIUM LEVEL Routine 07/15/2024 10:01 AM LADLE REPAIRMAN Adenocarcinoma of stomach COMPREHENSIVE METABOLIC PANEL Routine 10:01 AM LADLE REPAIRMAN Adenocarcinoma of stomach COMPLETE BLOOD COUNT W/ DIFFERENTIAL Routine 07/15/2024 10:01 AM LADLE REPAIRMAN Adenocarcinoma of stomach RESEARCH PROTOCOL [id number] Routine 07/15 10:01 AM LADLE REPAIRMAN Adenocarcinoma of stomach MDA AP IHC WORKUP Routine 07/07/2024 12:29 PM LADLE REPAIRMAN Adenocarcinoma of stomach POC GLUCOSE SCREEN Routine 06/30/2024 1:23 PM LADLE REPAIRMAN PATHOLOGY BIOPSY INTERPRETATION Routine 06/30/2024 12:51 PM LADLE REPAIRMAN Adenocarcinoma of stomach TN ESOPHAGOGASTRODUODENOSCOP Y TRANSORAL DIAGNOSTIC 06/30/2024 12:15 PM LADLE REPAIRMAN Adenocarcinoma of stomach Case Notes 06/12 per gene to schedule on 06/30, per tor to schedule 06/30 thru lunch last AM case, slot held to offer. LVM and sent mychart to schedule-DC Special Needs POLICE MATRON CHRIS COMPLETE 06/18.POLICE MATRONARTURO PEREZ LVM FOR DAUGHTER WITH DETAILED INSTRUCTIONS FOR PROCEDURE IN ADDITION TO HOLD ON PLAVIX FOR 5 DAYS.POLICE MATRONARTURO HERNANDEZ 1ST CALL 06/16. POC CHEM 8 Routine 06/30/2024 11:10 AM LADLE REPAIRMAN POC GLUCOSE SCREEN Routine 06/30/2024 10:52 AM LADLE REPAIRMAN POC CHEM 8 Routine 06/29/2024 9:54 AM LADLE REPAIRMAN EKG, 12-LEAD (SCHEDULED) Routine 06/29/2024 Adenocarcinoma of stomach PETCT F18 FDG (FLUORODEOXYGLUCOSE) WITH CONTRAST Routine 06/20/2024 12:42 PM LADLE REPAIRMAN Adenocarcinoma, NOS of stomach, NOS Malignant neoplasm of overlapping sites of esophagus POC GLUCOSE SCREEN Routine 06/20/2024 11:06 AM LADLE REPAIRMAN .CBC Routine 06/20/2024 10:35 AM LADLE REPAIRMAN Adenocarcinoma, NOS of stomach, NOS CARCINOEMBRYONIC ANTIGEN Routine 025 10:35 AM LADLE REPAIRMAN Adenocarcinoma, NOS of stomach, NOS LACTATE DEHYDROGENASE Routine 06/20/2024 10:35 AM LADLE REPAIRMAN Adenocarcinoma, NOS of stomach, NOS PHOSPHORUS LEVEL Routine 06/20/2024 10:35 AM LADLE REPAIRMAN Adenocarcinoma, NOS of stomach, NOS MAGNESIUM LEVEL Routine 06/20/2024 10:35 AM LADLE REPAIRMAN Adenocarcinoma, NOS of stomach, NOS COMPREHENSIVE METABOLIC PANEL Routine 10:35 AM LADLE REPAIRMAN Adenocarcinoma, NOS of stomach, NOS COMPLETE BLOOD COUNT W/ DIFFERENTIAL Routine 06/20/2024 10:35 AM LADLE REPAIRMAN Adenocarcinoma, NOS of stomach, NOS .CBC Routine 06/15/2024 10:39 AM LADLE REPAIRMAN Adenocarcinoma of stomach CARCINOEMBRYONIC ANTIGEN Routine 025 10:39 AM LADLE REPAIRMAN Adenocarcinoma, NOS of stomach, NOS LACTATE DEHYDROGENASE Routine 06/15/2024 10:39 AM LADLE REPAIRMAN Adenocarcinoma, NOS of stomach, NOS PHOSPHORUS LEVEL Routine 06/15/2024 10:39 AM LADLE REPAIRMAN Adenocarcinoma, NOS of stomach, NOS MAGNESIUM LEVEL Routine 06/15/2024 10:39 AM LADLE REPAIRMAN Adenocarcinoma, NOS of stomach, NOS COMPREHENSIVE METABOLIC PANEL Routine 10:39 AM LADLE REPAIRMAN Adenocarcinoma of stomach COMPLETE BLOOD COUNT W/ DIFFERENTIAL Routine 06/15/2024 10:39 AM LADLE REPAIRMAN Adenocarcinoma of stomach .CBC Routine 06/01/2024 11:10 AM LADLE REPAIRMAN Adenocarcinoma of stomach TRANSFERRIN Routine 06/01/2024 11:10 AM LADLE REPAIRMAN Iron deficiency anemia, not otherwise specified Adenocarcinoma of stomach FERRITIN Routine 06/01/2024 11:10 AM LADLE REPAIRMAN Iron deficiency anemia, not otherwise specified Adenocarcinoma of stomach IRON LEVEL Routine 06/01/2024 11:10 AM LADLE REPAIRMAN Iron deficiency anemia, not otherwise specified Adenocarcinoma of stomach COMPREHENSIVE METABOLIC PANEL Routine 11:10 AM LADLE REPAIRMAN Adenocarcinoma of stomach COMPLETE BLOOD COUNT W/ DIFFERENTIAL Routine 06/01/2024 11:10 AM LADLE REPAIRMAN Adenocarcinoma of stomach POC GLUCOSE SCREEN Routine 05/19/2024 1:52 PM LADLE REPAIRMAN PATHOLOGY BIOPSY INTERPRETATION Routine 05/19/2024 1:10 PM LADLE REPAIRMAN Adenocarcinoma of stomach TN ESOPHAGOGASTRODUODENOSCOP Y US SCOPE W/ADJ STRXRS 05/19/2024 12:34 PM LADLE REPAIRMAN Adenocarcinoma of stomach Case Notes 04/24- WAITING FOR TRIAGE TO [place] FOR 05/01- Special Needs POLICE MATRON [place] Call Completed 04/30/24ad laproscopy on 04/15/24 POC GLUCOSE SCREEN Routine 05/19/2024 12:21 PM LADLE REPAIRMAN .CBC Routine 05/18/2024 10:55 AM LADLE REPAIRMAN Adenocarcinoma, NOS of stomach, NOS CARCINOEMBRYONIC ANTIGEN Routine 024 10:55 AM LADLE REPAIRMAN Adenocarcinoma, NOS of stomach, NOS LACTATE DEHYDROGENASE Routine 05/18/2024 10:55 AM LADLE REPAIRMAN Adenocarcinoma, NOS of stomach, NOS PHOSPHORUS LEVEL Routine 05/18/2024 10:55 AM LADLE REPAIRMAN Adenocarcinoma, NOS of stomach, NOS MAGNESIUM LEVEL Routine 05/18/2024 10:55 AM LADLE REPAIRMAN Adenocarcinoma, NOS of stomach, NOS COMPREHENSIVE METABOLIC PANEL Routine 10:55 AM LADLE REPAIRMAN Adenocarcinoma, NOS of stomach, NOS COMPLETE BLOOD COUNT W/ DIFFERENTIAL Routine 05/18/2024 10:55 AM LADLE REPAIRMAN Adenocarcinoma, NOS of stomach, NOS .CBC Routine 05/04/2024 11:34 AM LADLE REPAIRMAN Adenocarcinoma, NOS of stomach, NOS RESEARCH PROTOCOL [id number] Routine 05/04 11:34 AM LADLE REPAIRMAN Adenocarcinoma of stomach CARCINOEMBRYONIC ANTIGEN Routine 024 11:34 AM LADLE REPAIRMAN Adenocarcinoma, NOS of stomach, NOS LACTATE DEHYDROGENASE Routine 05/04/2024 11:34 AM LADLE REPAIRMAN Adenocarcinoma, NOS of stomach, NOS PHOSPHORUS LEVEL Routine 05/04/2024 11:34 AM LADLE REPAIRMAN Adenocarcinoma, NOS of stomach, NOS MAGNESIUM LEVEL Routine 05/04/2024 11:34 AM LADLE REPAIRMAN Adenocarcinoma, NOS of stomach, NOS COMPREHENSIVE METABOLIC PANEL Routine 11:34 AM LADLE REPAIRMAN Adenocarcinoma, NOS of stomach, NOS COMPLETE BLOOD COUNT W/ DIFFERENTIAL Routine 05/04/2024 11:34 AM LADLE REPAIRMAN Adenocarcinoma, NOS of stomach, NOS VERIFY CATHETER TIP PLACEMENT Routine 3:50 PM LADLE REPAIRMAN Adenocarcinoma of stomach POC GLUCOSE SCREEN Routine 04/15/2024 3:21 PM LADLE REPAIRMAN XR CHEST 1 VW PORTABLE Routine 2:45 PM LADLE REPAIRMAN POC GLUCOSE SCREEN Routine 04/15/2024 1:05 PM LADLE REPAIRMAN POC GLUCOSE SCREEN Routine 04/15/2024 12:52 PM LADLE REPAIRMAN CYTOLOGY NON-RETAIL GENERAL MANAGER INTERPRETATION Routine 04/15/2024 12:33 PM LADLE REPAIRMAN Adenocarcinoma of stomach PATHOLOGY SURGICAL INTERPRETATION Routine 04/15/2024 12:13 PM LADLE REPAIRMAN Adenocarcinoma of stomach FL CENTRAL VENOUS PLACE EXCHANGE Routine 04/15/2024 11:40 AM LADLE REPAIRMAN Adenocarcinoma of stomach POC GLUCOSE SCREEN Routine 04/15/2024 9:22 AM LADLE REPAIRMAN TN INSJ TUNNELED CTR VAD W/SUBQ PORT AGE 5 YR/> 04/15/2024 9:16 AM LADLE REPAIRMAN Adenocarcinoma of stomach Special Needs MTL@0800 CHG US VASC ACCESS SITS VSL PATENCY NDL ENTRY 04/15/2024 9:16 AM LADLE REPAIRMAN Adenocarcinoma of stomach Special Needs MTL@0800 CHG FLUORO CENTRAL VENOUS ACCESS DEV PLACEMENT 04/15/2024 9:16 AM LADLE REPAIRMAN Adenocarcinoma of stomach Special Needs MTL@0800 TN LAPS ABD PRTM&OMENTUM DX W/WO SPEC BR/WA SPX 04/15/2024 9:16 AM LADLE REPAIRMAN Adenocarcinoma of stomach Special Needs MTL@0800 CT ABDOMEN PELVIS W CONTRAST Routine 11:18 AM LADLE REPAIRMAN .CBC Routine 04/12/2024 9:04 AM LADLE REPAIRMAN LIPASE LEVEL Routine 04/12/2024 9:04 AM LADLE REPAIRMAN AMYLASE LEVEL Routine 04/12/2024 9:04 AM LADLE REPAIRMAN LACTATE DEHYDROGENASE Routine 04/12/2024 9:04 AM LADLE REPAIRMAN FRACTIONATED BILIRUBIN Routine 9:04 AM LADLE REPAIRMAN PHOSPHORUS LEVEL Routine 04/12/2024 9:04 AM LADLE REPAIRMAN MAGNESIUM LEVEL Routine 04/12/2024 9:04 AM LADLE REPAIRMAN COMPREHENSIVE METABOLIC PANEL Routine 9:04 AM LADLE REPAIRMAN COMPLETE BLOOD COUNT W/ DIFFERENTIAL Routine 04/12/2024 9:04 AM LADLE REPAIRMAN .CBC Routine 04/09/2024 11:09 AM LADLE REPAIRMAN Encounter for other preprocedural examination Atherosclerosis of coronary 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, not otherwise specified THYROID STIMULATING HORMONE Routine 03/21 11:09 AM LADLE REPAIRMAN Encounter for other preprocedural examination Atherosclerosis of coronary 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, not otherwise specified HEMOGLOBIN A1C Routine 04/09/2024 11:09 AM LADLE REPAIRMAN 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 Encounter for other preprocedural examination COMPREHENSIVE METABOLIC PANEL Routine 11:09 AM LADLE REPAIRMAN Encounter for other preprocedural examination Atherosclerosis of coronary 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, not otherwise specified COMPLETE BLOOD COUNT W/ DIFFERENTIAL Routine 04/09/2024 11:09 AM LADLE REPAIRMAN Encounter for other preprocedural examination Atherosclerosis of coronary 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, not otherwise specified EKG, 12-LEAD (SCHEDULED) Routine 04/09/2024 Adenocarcinoma of stomach Hyperlipidemia, not otherwise specified Encounter for other preprocedural examination Atherosclerosis of coronary 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, not otherwise specified PATHOLOGY OUTSIDE INTERPRETATION Routine 04/02/[address] ABDOMEN AND PELVIS Routine 2023 8:21 AM LADLE REPAIRMAN Cancer OSI CHEST Routine 03/23/2024 7:37 PM LADLE REPAIRMAN Cancer OSI CT CHEST ABDOMEN PELVIS Routine 08/2023 7:37 PM LADLE REPAIRMAN Cancer OSI CHEST Routine 03/23/2024 7:37 PM LADLE REPAIRMAN Cancer OSI CT CHEST Routine 03/22/2024 8:21 AM LADLE REPAIRMAN Cancer OSI CT ABDOMEN AND PELVIS Routine [...] AM CDT Renal mass Special Needs [email or web address]:Please collect and send tissue to pathology window with appropriate label. TN LAPAROSCOPY SURG PARTIAL NEPHRECTOMY 01/02/2024 6:08 AM CDT Renal mass Special Needs [email or web address]:Please collect and send tissue to pathology window [...] ABDOMEN AND PELVIS Routine 2023 7:40 AM LADLE REPAIRMAN Cancer OSI CT BRAIN Routine 07/17/2023 7:40 AM LADLE REPAIRMAN Cancer after 07/17/2023 Results * CT Chest Abdomen Pelvis with Contrast (07/15/2024 4:38 PM LADLE REPAIRMAN) Anatomical Region Laterality Modality Abdomen, Pelvis, Chest Computed Tomography 07/15/2024 5:39 PM LADLE REPAIRMAN Impressions 07/15/2024 9:45 PM LADLE REPAIRMAN 1. Redemonstration of diffuse wall thickening of [...] and potentially actionable. Narrative 07/15/2024 9:45 PM LADLE REPAIRMAN FULL RESULT: Examination: CT CHEST ABDOMEN PELVIS [...] CT ORDERABLES Final Result * Research Protocol [id number] (07/15/2024 10:01 AM LADLE REPAIRMAN) Only the most recent of2 resultswithin the time period is included. Research Protocol Specimen Specimen Collected, Ready for Pickup. 07/15/2024 12:00 PM LADLE REPAIRMAN [facility] Blood Venipuncture / Unknown 07/15/2024 10:01 AM LADLE REPAIRMAN 07/15/2024 10:10 AM LADLE REPAIRMAN Marianela Hutchinson MD RESEARCH LAB Z CODES Final Re sult [facility] Unless otherwise noted, all lab tests performed by: Division of Pathology and Laboratory Medicine [address] [place] [id number] * (ABNORMAL) .CBC (07/15/2024 10:01 AM [facility]) Only the most recent of11 resultswithin the time period is included. White Blood Cell 6.7 4.1 - 10.5 K/uL 07/15/2024 10:33 AM [facility] Red Blood Cell 4.91 4.30 - 6.04 M/uL 07/15/2024 10:33 AM [facility] Hemoglobin 12.4(L) 13.3 - 17.4 g/dL 07/15/2024 10:33 AM [facility] Hematocrit 37.8(L) 39.5 - 51.8 % 07/15/2024 10:33 AM [facility] Mean Cell Volume 77(L) 82 - 99 fL 07/15/2024 10:33 AM [facility] Mean Cell Hemoglobin 25.3(L) 26.6 - 33.2 pg 07/15/2024 10:33 AM [facility] Mean Cell Hemoglobin Concentration 32.8 31.1 - 35.2 g/dL 07/15/2024 10:33 AM [facility] RDW-SD 40.9 37.5 - 49.7 fL 07/15/2024 10:33 AM [facility] Red Cell Diameter Width 14.8 11.6 - 15.5 % 07/15/2024 10:33 AM [facility] Platelet 226 160 - 397 K/uL 07/15/2024 10:33 AM [facility] [facility] Mean Platelet Volume 9.6 9.1 - 12.6 fL 07/15/2024 10:33 AM [facility] INRBC 0.0 0.0 - 0.1 /100 WBC 07/15/2024 10:33 AM [facility] Comment: The INRBC (instrument NRBC) value reflects the enumeration of nucleated red blood cells contained in a 200uL sample of whole blood analyzed by the instrument. This value may differ from the NRBC value reported in a manual differential, which is based on a 100 cell differential. Neutrophil % 63.5 43.2 - 72.7 % 07/15/2024 10:33 AM [facility] Lymphocyte % 25.4 16.8 - 46.2 % 07/15/2024 10:33 AM [facility] Monocyte % 8.5 5.1 - 12.5 % 07/15/2024 10:33 AM [facility] Eosinophil % 2.1 0.4 - 6.3 % 07/15/2024 10:33 AM [facility] Basophil % 0.4 0.2 - 1.4 % 07/15/2024 10:33 AM [facility] IGRE % 0.1 0.1 - 1.5 % 07/15/2024 10:33 AM [facility] Comment:The IGRE% includes M etamyelocytes, Myelocytes and Promyelocytes. Neutrophil Abs 4.25 1.95 - 7.25 K/uL 07/15/2024 10:33 AM [facility] Lymphocyte Abs 1.70 1.01 - 3.24 K/uL 07/15/2024 10:33 AM [facility] Monocyte Abs 0.57 0.24 - 0.85 K/uL 07/15/2024 10:33 AM [facility] Eosinophil Abs 0.14 0.02 - 0.50 K/uL 07/15/2024 10:33 AM [facility] Basophil Abs 0.03 0.02 - 0.09 K/uL 07/15/2024 10:33 AM [facility] IG Abs 0.01 0.01 - 0.12 K/uL 07/15/2024 10:33 AM [facility] Blood Peripheral blood specimen / Unknown Venipuncture / Unknown 07/15/2024 10:01 AM [facility] 07/15/2024 10:09 AM [facility] Gillian Gomez PA-C LAB BLOOD ORDERABLES Final Result [facility] Unless otherwise noted, all lab tests performed by: Division of Pathology and Laboratory Medicine [address] [place] [phone] * (ABNORMAL) CMP (07/15/2024 10:01 AM [facility]) Only the most recent of10 resultswithin the time period is included. Bilirubin Total 0.4 0.0 - 1.2 mg/dL 07/15/2024 11:15 AM [facility] Comment:Indocyanine Green (I CG) may cause falsely elevated bilirubin results. Total and direct bilirubin must not be measured from samples containing indocyanine green. False elevation of total bilirubin can be seen in patients with IgG concentrations above 28 g/L. eGFR 98 >=60 mL/min/1. 73 sq. m 07/15/2024 11:15 AM [facility] Comment: The eGFRcr is calculated [...] 6.4 - 8.3 gm/dL 07/15/2024 11:15 AM [facility] Calcium Level Total 9.6 8.2 - 10.2 mg/dL 07/15/2024 11:15 AM [facility] Alkaline Phosphatase 117 40 - 129 U/L 07/15/2024 11:15 AM [facility] Albumin Level 4.4 3.5 - 5.2 gm/dL 07/15/2024 11:15 AM [facility] AST 22 <=40 U/L 07/15/2024 11:15 AM [facility] ALT 13 <=41 U/L 07/15/2024 11:15 AM [facility] Sodium Level 138 136 - 145 mmol/L 07/15/2024 11:15 AM [facility] Potassium Level 4.1 3.4 - 4.5 mmol/L 07/15/2024 11:15 AM [facility] Chloride 101 98 - 107 mmol/L 07/15/2024 11:15 AM [facility] CO2 27 22 - 29 mmol/L 07/15/2024 11:15 AM [facility] Anion Gap 10 4 - 14 mmol/L 07/15/2024 11:15 AM [facility] Creatinine 0.90 0.67 - 1.17 mg/dL 07/15/2024 11:15 AM [facility] BUN 10 6 - 23 mg/dL 07/15/2024 11:15 AM [facility] Glucose Level 181(H) 70 - 99 mg/dL 07/15/2024 11:15 AM [facility] Comment: Effective 12/14/15, the glucose reference intervals have been updated based on [place] [employer] guidelines (Standards of Medical Care [...] Unknown Venipuncture / Unknown 07/15/2024 10:01 AM [facility] 07/15/2024 10:09 AM [facility] Gillian Gomez PA-C LAB BLOOD ORDERABLES Final Result [facility] Unless otherwise noted, all lab tests performed by: Division of Pathology and Laboratory Medicine [address] [place] [phone] * Phosphorus Level (07/15/2024 10:01 AM [facility]) Only the most recent of6 resultswithin the time period is included. Phosphorus Level 2.7 2.5 - 4.5 mg/dL 07/15/2024 11:15 AM LADLE REPAIRMAN [facility] Blood Peripheral blood specimen / Unknown Venipuncture / Unknown 07/15/2024 10:01 AM [facility] 07/15/2024 10:09 AM [facility] Gillian Gomez PA-C LAB BLOOD ORDERABLES Final Result Performing Organization Address City/[facility] de Phone Number [facility] Unless otherwise noted, all lab tests performed by: Division of Pathology and Laboratory Medicine [address] [place] [phone] * Magnesium Level (07/15/2024 10:01 AM [facility]) Only the most recent of6 resultswithin the time period is included. Magnesium Level 1.8 1.6 - 2.6 mg/dL 07/15/2024 11:15 AM LADLE REPAIRMAN [facility] Blood Peripheral blood specimen / Unknown Venipuncture / Unknown 07/15/2024 10:01 AM [facility] 07/15/2024 10:09 AM [facility] Gillian Gomez PA-C LAB BLOOD ORDERABLES Final Result Performing Organization Address City/[facility]/ZIP Co de Phone Number [facility] Unless otherwise noted, all lab tests performed by: Division of Pathology and Laboratory Medicine [address] [place] [phone] * LDH (07/15/2024 10:01 AM [facility]ADLE REPAIRMAN) Only the most recent of6 resultswithin the time period is included. LDH 202 135 - 225 U/L 07/15/2024 11:15 AM [facility]ADLE REPAIRMAN [facility] Blood Peripheral blood specimen / Unknown Venipuncture / Unknown 07/15/2024 10:01 AM [facility] 07/15/2024 10:09 AM LADLE REPAIRMAN Narrative [facility] - 07/15/2024 11:15 AM [facility] REPAIR[facility] Results greater than 1651 U/L may not be reliable due to matrix effect with extended dilution as it exceeds the packaging materials inspector's recommended limit. Caution should be exercised when interpreting such values and done in conjunction with clinical context. us Gillian Gomez PA-C LAB BLOOD ORDERABLES Final Result Performing Organization Address City/[facility] [[email or web address]] Co de Phone Number [facility] Unless otherwise noted, all lab tests performed by: Division of Pathology and Laboratory Medicine [address] [place] [phone] * CEA (07/15/2024 10:01 AM [facility] REPAIR[facility]) Only the most recent of5 resultswithin the time period is included. Carcinoembryonic Antigen 3.0 <=3.8 ng/mL 07/15/2024 11:26 AM [facility]ADLE REPAIRMAN [facility] Blood Peripheral blood specimen / Unknown Venipuncture / Unknown 07/15/2024 10:01 AM [facility] 07/15/2024 10:09 AM LADLE REPAIRMAN Narrative [facility] - 07/15/2024 11:26 AM [facility] RE[facility] Reference Ranges (age 20-69 years): Non-smoker: <= 3.8 ng/mL Smoker: <= 5.5 ng/mL This test is measured by electrochemiluminescence immunoassay on Cornelius Nikki immunoassay analyzers. Results obtained in different methods are not interchangeable. us Gillian Gomez PA-C LAB BLOOD ORDERABLES Final Result Performing Organization Address [facility] [[email or web address]] Co de Phone Number [facility] Unless otherwise noted, all lab tests performed by: Division of Pathology and Laboratory Medicine [address] [place] [phone] * IHC Workup (07/07/2024 12:29 PM LADLE REPAIRMAN) Tissue 07/07/2024 12:2 9 PM [facility]ADLE REPAIRMAN 07/07/2024 12:29 PM [facility]PA[facility] Gillian Gomez PA-C [facility] BIOMARKER ORDERABLE S Final Result Performing Organization Address [facility] [[email or web address]] Co de Phone Number [facility] [address] [address], * (ABNORMAL) POC Glucose Screen - Fingerstick (06/30/2024 1:23 PM LADLE REPAIRMAN) Only the most recent of24 resultswithin the time period is included. Pathologist [facility] Glucose Screen 168(H) 70 - 99 mg/dL 06/30/2024 1:25 PM LADLE REPAIRMAN [facility] POC Sample Type Capillary 06/30/2024 1:25 PM LADLE REPAIRMAN [facility] Blood 06/30/2024 1:23 PM [facility]ADLE REPAIRMAN 06/30/2024 1:25 PM LADLE REPAIRMAN Narrative [facility] - 06/30/2024 1:25 PM LADLE REPAIRMAN Capillary blood samples, e.g. obtained by fingerstick, [...] POCT ORDERABLES - DE VICE Final Result [facility] Unless otherwise noted, all lab tests performed by: Division of Pathology and Laboratory Medicine [address] [place] [phone] * Pathology Biopsy Interpretation (06/30/2024 12:51 PM LADLE REPAIRMAN) Only the most recent of3 resultswithin the time period is included. Pathologist [facility] Addendum 1 By immunohistochemistry, approximately 10% of the tumor cells show weakly to moderately cytoplasmic staining for claudin 18. By immunohistochemistry the combined positive score (CPS) for PD-L1 is <1. 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 07/10/2024 8:47 AM [facility] Gross Description A: Esophagus, lower esophageal ulcer at 37cm: Multiple soft light castillo tissue fragments, 0.7 x 0.6 x 0.1 cm in aggregate, entirely submitted in A1. ET 07/10/2024 8:47 AM [facility] Biomarker Block(s) Block for biomarker testing: A1 07/10/2024 8:47 AM [facility] Disclaimer "Some tests reported here may have been developed and performance characteristics determined by [facility] Pathology and Laboratory Medicine. These tests have not been specifically cleared or approved by the U.S. Food and Drug Administration. If applicable, controls were reviewed and showed appropriate reactivity." 07/10/2024 8:47 AM [facility] Tissue (Esophagus) 06/30/2024 12:51 PM [facility] REPA[facility] 06/30/2024 2:51 PM LADLE REPAIRMAN us Brandon Galo MD LAB PATHOLOGY ORDERA BLES Edited Result - Final [address] [address] [place] [address], * (ABNORMAL) POC Chem 8 (06/30/2024 11:10 AM [facility] REPAIR[facility]) Only the most recent of2 resultswithin the time period is included. POC Sodium 136(L) 138 - 146 mmol/L 06/30/2024 11:13 AM [facility] Potassium 4.5 3.5 - 4.9 mmol/L 06/30/2024 11:13 AM [facility] Chloride 100 98 - 109 mmol/L 06/30/2024 11:13 AM [facility] VTCO2 27 24 - 29 mmol/L 06/30/2024 11:13 AM [facility] Anion Gap 14 10 - 20 mmol/L 06/30/2024 11:13 AM [facility] BUN 30(H) 8 - 26 mg/dL 06/30/2024 11:13 AM [facility] Creatinine 1.1 0.6 - 1.3 mg/dL 06/30/2024 11:13 AM [facility] Comment:Medications, especia lly hydroxyurea or supplements, such as ascorbate, can interfere with test results causing a falsely and significantly higher result than expected. If a problem is suspected with a patient's result, a sample should be sent to the laboratory for confirmatory testing. POC I Glu 182(H) 70 - 99 mg/dL 06/30/2024 11:13 AM [facility] Comment:Medications, especia lly hydroxyurea or supplements, such as ascorbate, can interfere with test results causing a falsely and significantly higher result than expected. If a problem is suspected with a patient's result, a sample should be sent to the laboratory for confirmatory testing. POC Ionized Calcium 1.26 1.12 - 1.32 mmol/L 06/30/2024 11:13 AM [facility] Hct 39.0 38.0 - 51.0 % 06/30/2024 11:13 AM [facility] Hgb 13.3 12.0 - 17.0 gm/dL 06/30/2024 11:13 AM [facility] Comment:Hematocrit values fr om the iSTAT are [...] standard. POC Sample Type Venous 11:13 AM [facility] eGFR 77 >=60 mL/min/1.7 3 sq. m 06/30/2024 11:13 AM [facility] Comment: The eGFRcr is calculated with [...] for CKD. Blood 06/30/2024 11:1 0 AM [facility] 06/30/2024 11:13 AM LADLE REPAIRMAN Narrative [facility] - 06/30/2024 11:13 AM LADLE REPAIRMAN Method description: The i-STAT is an analyzer [...] DE VICE Final Result Performing Organization Address [facility] [[email or web address]] Co de Phone Number [facility] Unless otherwise noted, all lab tests performed by: Division of Pathology and Laboratory Medicine [address] [place] [phone] * EKG, 12-Lead (Scheduled) (06/29/2024) Only the most recent of3 resultswithin the time period is included. Mary Kay Santamaria APRN ECG ORDERABLES Final R esult Performing Organization Address [facility]/ZIP Co de Phone Number [facility] * PETCT F18 FDG (Fluorodeoxyglucose) with contrast (06/20/2024 12:42 PM [facility]ADLE REPAIRMAN) Anatomical Region Laterality Modality Whole Body Positron Emissio n Tomography (PET) 06/20/2024 3:10 PM [facility]ADLE REPAIRMAN Impressions 06/20/2024 4:38 PM [facility]ADLE REPAIRMAN Biopsy-proven malignancy in the region of the [...] and potentially actionable. Narrative 06/20/2024 4:38 PM [facility] REPAIRMAN FULL RESULT: Examination: 18F-FDG-PET/CT with contrast, 06/20/2024 [...] * Transferrin with TIBC (06/01/2024 11:10 AM LADLE REPAIRMAN) Transferrin 211 200 - 360 mg/dL 06/01/2024 12:15 PM LADLE REPAIRMAN [facility] Total Iron Binding Capacity 295 250 - 450 mcg/dL 06/01/2024 12:15 PM LADLE REPAIRMAN [facility] Blood Peripheral blood specimen / Unknown Venipuncture / Unknown 06/01/2024 11:10 AM [facility] REPAIRMAN 06/01/2024 11:23 AM [facility]ADLE REPAIRMAN Marianela Hutchinson MD LAB BLOOD ORDERABLES Final Re sult [facility] Unless otherwise noted, all lab tests performed by: Division of Pathology and Laboratory Medicine [address] [place] [phone] * (ABNORMAL) Iron Level (06/01/2024 11:10 AM LADLE REPAIRMAN) Iron Level 38(L) 59 - 158 mcg/dL 06/01/2024 12:15 PM LADLE REPAIRMAN [facility] Is patient fasting? No 06/01/2024 12:15 PM LADLE REPAIRMAN [facility] Blood Peripheral blood specimen / Unknown Venipuncture / Unknown 06/01/2024 11:10 AM LADLE REPAIRMAN 06/01/2024 11:23 AM [facility]LE REPAIRMAN Marianela Hutchinson MD LAB BLOOD ORDERABLES Final Re sult Performing Organization Address [facility] [[email or web address]] Co de Phone Number [facility] Unless otherwise noted, all lab tests performed by: Division of Pathology and Laboratory Medicine [address] [place] [address] Unless otherwise noted, all lab tests performed by: Division of Pathology and Laboratory Medicine [address] [place] [address] * Ferritin Level (06/01/2024 11:10 AM LADLE REPAIRMAN) Ferritin Level 59 30 - 400 ng/mL 06/01/2024 12:15 PM LADLE REPAIRMAN [facility] Blood Peripheral blood specimen / Unknown Venipuncture / Unknown 06/01/2024 11:10 AM [facility] REPAIRMAN 06/01/2024 11:23 AM LADLE REPAIRMAN Narrative [facility] - 06/01/2024 12:15 PM [facility] REPAIRMAN Reference range established for age 20 - 60 years Marianela Hutchinson MD LAB BLOOD ORDERABLES Final Re sult [facility] Unless otherwise noted, all lab tests performed by: Division of Pathology and Laboratory Medicine [address] [place] [address] * Tip Verification Central Vascular Access Device (04/15/2024 3:50 PM LADLE REPAIRMAN) Narrative John Fong MD - 04/15/2024 3:50 PM [facility]LE REPAIRMAN John Fong MD 04/15/2024 3:50 PM Central Vascular Access Device Tip Verification Performed by: John Fong MD Authorized by: John Fong MD CVAD Properties Date device placed: 04/15/2024 Device placement location: [facility] Catheter Type: Implanted venous port Catheter lumen: Single lumen Vein location: Internal jugular vein Laterality: Right Tip in good position and cleared for infusion us John Fong MD IV THERAPY ORDERABLES Final Re sult * XR Chest 1 View Portable (04/15/2024 2:45 PM LADLE REPAIRMAN) Anatomical Region Laterality Modality Chest Digital Radiogra phy 04/15/2024 2:50 PM [facility]ADLE REPAIRMAN Impressions 04/15/2024 2:53 PM LADLE REPAIRMAN 1. Right infusion port catheter terminates over [...] and potentially actionable. Narrative 04/15/2024 2:53 PM LADLE REPAIRMAN FULL RESULT: Examination: XR CHEST 1 VW [...] IMAGING ORDERAB LES Final Result * Cytology Non-Disease Intervention Specialist Interpretation (04/15/2024 12:33 PM LADLE REPAIRMAN) Gross Description 4 Pap Stain Slides 750 ml. clear yellow fluid Specimen concentrated by cytocentrifugation technique 4 4:07 PM LADLE REPAIRMAN [facility] Major Classification [facility]/benign 4 4:07 PM LADLE REPAIRMAN [facility] Diagnosis Peritoneal washing: No metastatic carcinoma identified Reactive mesothelial cells and histiocytes 4 4:07 PM LADLE REPAIRMAN [facility] Retained/Biomark er Testing SR:4S 4 4:07 PM LADLE REPAIRMAN [facility] Informational Points Some tests reported here may have been developed and performance characteristics determined by [facility]. These tests have not been specifically cleared or approved by the U.S. Food and Drug Administration. 4:07 PM LADLE REPAIRMAN [facility] Washing (Peritoneal Washing) 04/15/2024 12:33 PM LADLE REPAIRMAN 04/15/2024 1:10 PM LADLE REPAIRMAN John Fong MD LAB CYTOLOGY ORDERABLES Final Result Performing Organization Address City/[facility]/ZIP Co de Phone Number [address] [address], [place] * Pathology Surgical Interpretation (04/15/2024 12:13 PM LADLE REPAIRMAN) Only the most recent of2 resultswithin the time period is included. Submitted Clinical History Adenocarcinoma of stomach [C16.9] 04/20/2024 8:13 PM LADLE REPAIRMAN [facility] Diagnosis A. Falciform ligament, resection: Fibroadipose tissue, no tumor present 04/20/2024 8:13 PM LADLE REPAIRMAN [facility] Gross Description A: Falciform ligament, falciorm ligament biopsy....or 16: Consists of a fragment of castillo-yellow, lobulated fat (0.8 x 0.6 x 0.5 cm) entirely submitted in cassette A1. EF 04/20/2024 8:13 PM LADLE REPAIRMAN [facility] Disclaimer "Some tests reported here may have been developed and performance characteristics determined by [facility] Pathology and Laboratory Medicine. These tests have not been specifically cleared or approved by the U.S. Food and Drug Administration. If applicable, controls were reviewed and showed appropriate reactivity." 04/20/2024 8:13 PM LADLE REPAIRMAN [facility] Tissue (Falciform Ligament) 04/15/2024 12:13 PM LADLE REPAIRMAN 04/15/2024 1:18 PM LADLE REPAIRMAN John Fong MD LAB PATHOLOGY ORDERABLES Final Result Performing Organization Address City/[facility]/ZIP Co de Phone Number [address] [address], [place] * [place] Central Venous Place Exchange (04/15/2024 11:40 AM LADLE REPAIRMAN) Narrative Systemgenerated, Documentation - 04/15/2024 11:40 AM LADLE REPAIRMAN This procedure requires no interpretation from the radiologist. us John Fong MD IMG FLUOROSCOPY ORDERABLES Fin al Result * CT Abdomen Pelvis with IV Contrast (04/12/2024 11:18 AM LADLE REPAIRMAN) Anatomical Region Laterality Modality Abdomen, Pelvis Computed Tomogra phy 04/12/2024 11:5 2 AM LADLE REPAIRMAN Impressions 04/12/2024 12:11 PM LADLE REPAIRMAN Wall thickening and slight mucosal irregularity of [...] and potentially actionable. Narrative 04/12/2024 12:11 PM LADLE REPAIRMAN FULL RESULT: Examination: CT ABDOMEN PELVIS W [...] Result * Fractionated Bilirubin (04/12/2024 9:04 AM [facility]) Bilirubin Direct 04/12/20 9:47 AM [facility] Comment: Direct and indirect bilirubin will not be reported when Total bilirubin result is <0.3 mg/dL Indocyanine Green (ICG) may cause falsely elevated bilirubin results. Total and direct bilirubin must not be measured from samples containing indocyanine green. Bilirubin Indirect 2023 9:47 AM [facility] Comment:Direct and indirect bilirubin will not be reported when Total bilirubin result is <0.3 mg/dL Bilirubin Total <0.3 0.0 - 1.2 mg/dL 04/12/2024 9:47 AM [facility] Comment: Direct and indirect bilirubin will not [...] Unknown Venipuncture / Unknown 04/12/2024 9:04 AM LADLE REPAIRMAN 04/12/2024 9:08 AM [facility] Nghia Zhu MD LAB BLOOD ORDERABLES Final Resu lt [facility] Unless otherwise noted, all lab tests performed by: Division of Pathology and Laboratory Medicine [address] [place] [phone] * (ABNORMAL) Lipase (04/12/2024 9:04 AM LADLE REPAIRMAN) Lipase Level 311(H) 13 - 60 U/L 04/12/2024 10:09 AM LADLE REPAIRMAN [facility] Blood Peripheral blood specimen / Unknown Venipuncture / Unknown 04/12/2024 9:04 AM LADLE REPAIRMAN 04/12/2024 9:08 AM LADLE REPAIRMAN Narrative [facility] - 04/12/2024 10:09 AM LADLE REPAIRMAN Reference range established based on adult population us Nghia Zhu MD LAB BLOOD ORDERABLES Final Resu lt Performing Organization Address [facility] de Phone Number [facility] Unless otherwise noted, all lab tests performed by: Division of Pathology and Laboratory Medicine [address] [place] [phone] * (ABNORMAL) Amylase (04/12/2024 9:04 AM LADLE REPAIRMAN) Amylase Level 171(H) 28 - 100 U/L 04/12/2024 9:47 AM LADLE REPAIRMAN [facility] Blood Peripheral blood specimen / Unknown Venipuncture / Unknown 04/12/2024 9:04 AM LADLE REPAIRMAN 04/12/2024 9:08 AM LADLE REPAIRMAN us Nghia Zhu MD LAB BLOOD ORDERABLES Final Resu lt Performing Organization Address [facility]/ZIP Co de Phone Number [facility] Unless otherwise noted, all lab tests performed by: Division of Pathology and Laboratory Medicine [address] [place] [phone] * TSH (04/09/2024 11:09 AM LADLE REPAIRMAN) Only the most recent of2 resultswithin the time period is included. Thyroid Stimulating Hormone 1.53 0.27 - 4.20 mcunit/mL 04/09/2024 12:23 PM LADLE REPAIRMAN [facility] Blood Peripheral blood specimen / Unknown Venipuncture / Unknown 04/09/2024 11:09 AM LADLE REPAIRMAN 04/09/2024 11:19 AM LADLE REPAIRMAN us Ceci Nicholson MD LAB BLOOD ORDERABLES Final Resu lt Performing Organization Address [facility] de Phone Number [facility] Unless otherwise noted, all lab tests performed by: Division of Pathology and Laboratory Medicine [address] [place] [phone] * (ABNORMAL) Hemoglobin A1c (04/09/2024 11:09 AM LADLE REPAIRMAN) Only the most recent of3 resultswithin the time period is included. Hemoglobin A1c 7.0(H) 4.3 - 5.6 % 04/09/2024 12:14 PM LADLE REPAIRMAN [facility] Blood Peripheral blood specimen / Unknown Venipuncture / Unknown 04/09/2024 11:09 AM LADLE REPAIRMAN 04/09/2024 11:19 AM LADLE REPAIRMAN Narrative [facility] - 04/09/2024 12:14 PM LADLE REPAIRMAN HbA1c values >=6.5% are diagnostic of diabetes mellitus. Diagnosis should be confirmed by repeat testing. Therapeutic Action suggested: >8.0% HbA1c; Goal of therapy: <7.0% HbA1c us Ceci Nicholson MD LAB BLOOD ORDERABLES Final Resu lt Performing Organization Address [facility] de Phone Number [facility] Unless otherwise noted, all lab tests performed by: Division of Pathology and Laboratory Medicine [address] [place] [phone] * Pathology Outside Interpretation (04/02/2024) Materials Received Accession#, Stained, Block, Unstained Collected Received A. [id number], 20 SS, 0 BLOCKS, 0 USS 04/02/2024 04/22/2024 04/22/2024 5:36 PM LADLE REPAIRMAN [facility] Diagnosis Outside ([id number], 20 SS, 0 BLOCKS, 0 USS, collected [...] FEATURES. See comment. FY/ISAURO 04/22/2024 5:36 PM [facility] Comment Part A. There is no evidence of malignancy on H&E and immunohistochemical stain for Cytokeratin AE1/AE3. Of note, the biopsy may not be circulation representative of the entire lesion. Please correlate [...] immunohistochemistry: Negative (Score: 0) 04/22/2024 5:36 PM [facility] Biomarker Block(s) Block for biomarker testing: C1 Normal block: N/A 04/22/2024 5:36 PM [facility] [employer] Disclaimer "Some tests reported here may have been developed and performance characteristics determined by [facility] Pathology and Laboratory Medicine. These tests have not been specifically cleared or approved by the U.S. Food and Drug Administration. If applicable, controls were reviewed and showed appropriate reactivity." 04/22/2024 5:36 PM [facility] Tissue 04/02/2024 04/22/2024 6:4 0 AM LADLE REPAIRMAN us Sybil Edmonds MD LAB PATHOLOGY ORDERABLES Final R esult [facility] Cancer [address] [address] [place] [address], [place] * OSI CT Abdomen and Pelvis (04/01/2024 8:21 AM LADLE REPAIRMAN) Only the most recent of3 resultswithin the time period is included. Narrative Systemgenerated, Documentation - 04/27/2024 8:22 AM LADLE REPAIRMAN Study acquired at another institution. For comparison only. No [facility] originated interpretation requested or available. [facility] Regan Zhu DO IMG OUTSIDE IMAGE ORDERAB LES Final Result * OSI CT CHEST ABDOMEN PELVIS (03/23/2024 7:37 PM LADLE REPAIRMAN) Narrative Systemgenerated, Documentation - 04/09/2024 7:37 PM LADLE REPAIRMAN Study acquired at another institution. For comparison only. No [facility] originated interpretation requested or available. Margoth Souza MD IMG OUTSIDE IMAGE ORDERABLES Fin al Result * OSI Chest (03/23/2024 7:37 PM LADLE REPAIRMAN) Only the most recent of4 resultswithin the time period is included. Narrative Systemgenerated, Documentation - 04/09/2024 7:37 PM LADLE REPAIRMAN Study acquired at another institution. For comparison only. No [facility] originated interpretation requested or available. Margoth Souza MD IMG OUTSIDE IMAGE ORDERABLES Fin al Result * OSI CT Chest (03/22/2024 8:21 AM LADLE REPAIRMAN) Narrative Systemgenerated, Documentation - 04/27/2024 8:21 AM LADLE REPAIRMAN Study acquired at another institution. For comparison only. No [facility] originated interpretation requested or available. [facility] Regan Zhu DO IMG OUTSIDE IMAGE ORDERAB LES Final Result * (ABNORMAL) Basic Metabolic Panel- Total Calcium (01/03/2024 2:59 PM CDT) Only the most recent of7 resultswithin the time period is included. eGFR 71 >=60 mL/min/1. 73 sq. m 01/03/2024 3:44 PM CDT [facility] Comment: The eGFRcr is calculated [...] 10.2 mg/dL 01/03/2024 3:44 PM CDT [facility] Sodium Level 139 136 - 145 mmol/L 01/03/2024 3:44 PM CDT [facility] Potassium Level 3.9 3.4 - 4.5 mmol/L 01/03/2024 3:44 PM CDT [facility] Chloride 103 98 - 107 mmol/L 01/03/2024 3:44 PM CDT [facility] CO2 28 22 - 29 mmol/L 01/03/2024 3:44 PM CDT [facility] Anion Gap 8 4 - 14 mmol/L 01/03/2024 3:44 PM CDT [facility] Creatinine 1.18(H) 0.67 - 1.17 mg/dL 01/03/2024 3:44 PM CDT [facility] BUN 15 6 - 23 mg/dL 01/03/2024 3:44 PM CDT [facility] Glucose Level 137(H) 70 - 99 mg/dL 01/03/2024 3:44 PM CDT [facility] Comment: Effective 12/14/15, the glucose reference intervals have been updated based on [place] Diabetes Association guidelines (Standards of Medical Care [...] BLOOD ORDERABLES Final Result Performing Organization Address City/[facility] [[email or web address]] Co de Phone Number [facility] Unless otherwise noted, all lab tests performed by: Division of Pathology and Laboratory Medicine [address] [place] [phone] * Zinc Transporter 8 Ab (01/03/2024 4:22 AM CDT) Pathologist [facility] Zinc T8 AB <15.0 <15.0 U/mL 01/15/2024 11:18 AM CDT [facility] Comment: ADDITIONAL INFORMATION This test has been modified from the packaging materials inspector's instructions. Its performance characteristics were determined by [facility] in a manner consistent with CLIA requirements. This test has not been cleared or approved by the U.S. Food and Drug Administration. Test Performed by: [place] [address] Labor And Delivery Nurse: Mary Jane Topete Ph.D.; CLIA# [id number] Blood Peripheral blood specimen / Unknown Venipuncture / Unknown 01/03/2024 4:22 AM CDT 01/03/2024 4:55 AM CDT Alicia Mcmanus APRN LAB BLOOD ORDERABLES Final Result Performing Organization Address [facility] [[email or web address]] Co de Phone Number [facility] * Islet Antigen 2 (IA-2) Antibody (01/03/2024 4:22 AM CDT) IA-2 Antibody 0.00 <=0.02 nmol/L 01/07/2024 12:20 AM CDT [facility] Comment: ADDITIONAL INFORMATION This test was developed and its performance characteristics determined by [facility] in a manner consistent with CLIA requirements. This test has not been cleared or approved by the U.S. Food and Drug Administration. Test Performed by: [place] [address] Labor And Delivery Nurse: Mary Jane Topete Ph.D.; CLIA# [id number] Blood Peripheral blood specimen / Unknown Venipuncture / Unknown 01/03/2024 4:22 AM CDT 01/03/2024 4:55 AM CDT Alicia Mcmanus APRN LAB BLOOD ORDERABLES Final Result [facility] * GREG Ab Assay (01/03/2024 4:22 AM CDT) [facility] 0.[facility] <=0.02 nmol/L 01/07/2024 12:01 AM CDT [facility] Comment: ADDITIONAL INFORMATION This test was developed and its performance characteristics determined by [facility] in a manner consistent with CLIA requirements. This test has not been cleared or approved by the U.S. Food and Drug Administration. Test Performed by: [facility] - [address] [address] Labor And Delivery Nurse: Mary Jane Topete Ph.D.; CLIA# [id number] Blood Peripheral blood specimen / Unknown Venipuncture / Unknown 01/03/2024 4:22 AM CDT 01/03/2024 4:55 AM CDT us Vargas Sohail Mcmanusemily MARIE LAB BLOOD ORDERABLES Final Result [facility] * Insulin Ab (01/03/2024 4:22 AM CDT) Pathologist [facility] Insulin Ab-[place] 0.00 0.00 - 0.02 nmol/L 01/06/2024 5:14 PM CDT [facility] Comment: ADDITIONAL INFORMATION This test was developed and its performance characteristics determined by [facility] in a manner consistent with CLIA requirements. This test has not been cleared or approved by the U.S. Food and Drug Administration. Test Performed by: [address] [address] Labor And Delivery Nurse: Mary Jane Topete Ph.D.; CLIA# [id number] Blood Peripheral blood specimen / Unknown Venipuncture / Unknown 01/03/2024 4:22 AM CDT 01/03/2024 4:55 AM CDT Aliciakeyon Mcmanus APRN LAB BLOOD ORDERABLES Final Result Performing Organization Address [facility] [[email or web address]] Co de Phone Number [facility] * C Peptide (01/03/2024 4:22 AM CDT) Pathologist [facility] C-Peptide 2.12 1.10 - 4.40 ng/mL 01/03/2024 5:48 AM CDT [facility] Blood Peripheral blood specimen / Unknown Venipuncture / Unknown 01/03/2024 4:22 AM CDT 01/03/2024 4:55 AM CDT us Vargas Sohail Mcmanus APRN LAB BLOOD ORDERABLES Final Result [facility] Unless otherwise noted, all lab tests performed by: Division of Pathology and Laboratory Medicine [address] [place] [phone] * (ABNORMAL) Hemogram (01/02/2024 7:20 PM CDT) White Blood Cell 13.8(H) 4.1 - 10.5 K/uL 01/02/2024 7:33 PM CDT [facility] Red Blood Cell 4.74 4.30 - 6.04 M/uL 01/02/2024 7:33 PM CDT [facility] Hemoglobin 12.2(L) 13.3 - 17.4 g/dL 01/02/2024 7:33 PM CDT [facility] Hematocrit 38.6(L) 39.5 - 51.8 % 01/02/2024 7:33 PM CDT [facility] Mean Cell Volume 81(L) 82 - 99 fL 01/02/2024 7:33 PM CDT [facility] Mean Cell Hemoglobin 25.7(L) 26.6 - 33.2 pg 01/02/2024 7:33 PM CDT [facility] Mean Cell Hemoglobin Concentration 31.6 31.1 - 35.2 g/dL 01/02/2024 7:33 PM CDT [facility] RDW-SD 39.1 37.5 - 49.7 fL 01/02/2024 7:33 PM CDT [facility] Red Cell Diameter Width 13.1 11.6 - 15.5 % 01/02/2024 7:33 PM CDT [facility] Platelet 291 160 - 397 K/uL 01/02/2024 7:33 PM CDT [facility] Mean Platelet Volume 9.7 9.1 - 12.6 fL 01/02/2024 7:33 PM CDT [facility] INRBC 0.0 0.0 - 0.1 /100 WBC 01/02/2024 7:33 PM CDT [facility] Comment: The INRBC (instrument NRBC) [...] ORDERABLES Final R esult Performing Organization Address City/[facility]/ZIP Co de Phone Number [facility] Unless otherwise noted, all lab tests performed by: Division of Pathology and Laboratory Medicine [address] [place] [phone] * (ABNORMAL) Beta Hydroxy Quant (01/02/2024 7:20 PM CDT) Only the most recent of2 resultswithin the time period is included. Pathologist [facility] Beta-Hydroxybuty rate 0.85(H) 0.02 - 0.27 mmol/L 01/02/2024 8:01 PM CDT [facility] Is patient fasting? No 01/02/2024 8:01 PM CDT [facility] Comment:A fasting specimen i s recommended and results obtained from non-fasting specimens should be interpreted with caution using reference ranges based on fasting status and in conjunction with clinical context. Blood Peripheral blood specimen / Unknown Venipuncture / Unknown 01/02/2024 7:20 PM CDT 01/02/2024 7:24 PM CDT Narrative [facility] - 01/02/2024 8:01 PM CDT Reference range based on fasting. us Alicia Mcmanus APRN LAB BLOOD ORDERABLES Final Result Performing Organization Address City/[facility]/ZIP Co de Phone Number [facility] Unless otherwise noted, all lab tests performed by: Division of Pathology and Laboratory Medicine [address] [place] [phone] * (ABNORMAL) ABG+ (ABG, Na, K, Cl, Glu, Hgb, Hct, Lactate, Ion Ca) (01/02/2024 10:38 AM CDT) Only the most recent of2 resultswithin the time period is included. [facility] Sodium Arterial 140 136 - 146 mmol/L 01/02/2024 10:44 AM CDT [facility] Potassium Arterial 3.7 3.4 - 4.5 mmol/L 01/02/2024 10:44 AM [facility] Chloride Arterial 103 98 - 106 mmol/L 01/02/2024 10:44 AM [facility] Glucose Arterial 270(H) 70 - 105 mg/dL 01/02/2024 10:44 AM [facility] Hgb Art 12.9(L) 13.5 - 17.5 g/dL 01/02/2024 10:44 AM [facility] Hematocrit Arterial 40(L) 42 - 52 % 01/02/2024 10:44 AM [facility] Lactate Arterial 1.0(H) 0.4 - 0.8 mmol/L 01/02/2024 10:44 AM [facility] Calcium Ionized Arterial 1.14(L) 1.15 - 1.29 mmol/L 01/02/2024 10:44 AM [facility] pH Arterial 7.35 7.35 - 7.45 01/02/2024 10:44 AM [facility] P CO2 Arterial 42.9 35.0 - 48.0 mmHg 01/02/2024 10:44 AM [facility] P O2 Arterial 164(H) 83 - 108 mmHg 01/02/2024 10:44 AM [facility] Bicarbonate Arterial 24 21 - 28 mmol/L 01/02/2024 10:44 AM [facility] WB Anion Gap 13 7 - 16 mmol/L 01/02/2024 10:44 AM [facility] Base Excess Arterial -2 -2 - 3 mmol/L 01/02/2024 10:44 AM [facility] Oxygen Saturation Arterial 99 95 - 99 % 01/02/2024 10:44 AM [facility] Oxygen FLOW Rate/ FiO2 01/02/2024 10:44 AM [facility] O2 Therapy 01/02/2024 10:44 AM [facility] Art Kirill Test Not Applicable (Arterial Line Draw) 01/02/2024 10:44 AM [facility] Blood Arterial blood specimen / Unknown Arterial Line / Unknown 01/02/2024 10:38 AM CDT 01/02/2024 10:41 AM CDT Narrative [facility] - 01/02/2024 10:44 AM CDT [...] MD LAB BLOOD ORDERABLES Final Re sult [facility] Unless otherwise noted, all lab tests performed by: Division of Pathology and Laboratory Medicine [address] [place] [phone] * Intraoperative Ultrasound - For Image Storage [...] DATE 01/22/2024 12/23/2023 2:19 PM CDT [facility] Blood Peripheral blood specimen / Unknown Venipuncture / Unknown 12/23/2023 8:51 AM CDT 12/23/2023 9:00 AM CDT us Margoth Souza MD BLOOD BANK TEST ORDERABLES Final Result [facility] [address] [place] [address] B2.[facility] [place] [address] * Preop Updated Expiration (12/23/2023 8:51 AM CDT) Pathologist [facility] PREOP STATUS 01/02/2024 11:33 PM CDT [facility] PREOP EXP DATE 01/02/2024 01/02/2024 11:33 PM CDT [facility] Blood Peripheral blood specimen / Unknown Venipuncture / Unknown 12/23/2023 8:51 AM CDT 12/23/2023 9:00 AM CDT us Margoth Souza MD BLOOD BANK TEST ORDERABLES Final Result [facility] [address] [place] [address] * (ABNORMAL) Urinalysis with Reflex Culture (12/23/2023 8:51 AM CDT) Only the most recent of2 resultswithin the time period is included. Pathologist [facility] Urine Appearance Clear Clear 12/23/19 9:33 AM CDT [facility] Urine Color Straw Colorless, Straw, Yellow, Dark Yellow, Straw-Yellow 12/23/2023 9:33 AM CDT [facility] Urine Specific [place] 1.032 1.003 - 1.035 12/23/2023 9:33 AM CDT [facility] Urine pH 6.0 5.0 - 8.0 12/23/2023 9:33 AM CDT [facility] Urine Glucose >=1000(A) Negative mg/dL 12/23/2023 9:33 AM CDT [facility] Urine Ketones Negative Negative mg/dL 12/23/2023 9:33 AM CDT [facility] Urine Blood Negative Negative 12/23/2023 9:33 AM CDT [facility] Urine Protein 30(A) Negative mg/dL 12/23/2023 9:33 AM CDT [facility] Urine Bilirubin Negative Negative 9:33 AM CDT [facility] Urine Urobilinogen Negative Negative 12/23/2023 9:33 AM CDT [facility] Urine Nitrite Negative Negative 12/23/2023 9:33 AM CDT [facility] Urine Leukocyte Esterase Negative Negative 12/23/2023 9:33 AM CDT [facility] Urine Mucous Not Seen Not Seen, Trace /HPF 12/23/2023 9:33 AM CDT [facility] Urine Bacteria Not Seen Not Seen /HPF 12/23/2023 9:33 AM CDT [facility] Urine Squamous Epithelial Cells OCC Not Seen, OCC, Rare /HPF 12/23/2023 9:33 AM CDT [facility] Urine WBC <1 <=2 /HPF 12/23/2023 9:33 AM CDT [facility] Urine RBC 1 <=2 /HPF 12/23/2023 9:33 AM CDT [facility] Urine Voided urine specimen / Unknown Non-blood Collection / Unknown 12/23/2023 8:51 AM CDT 12/23/2023 9:10 AM CDT [facility] - 12/23/2023 9:33 AM CDT Some reporting parameters within the Urinalysis test have changed due to the implementation of new instrumentation in the Main [place], allowing greater sensitivity of measurement. Urinalysis results reported by the [facility] using existing instrumentation, as well as Urinalysis testing performed manually or by back-up methodology at the main campus, will remain relatively unchanged. New reporting parameters and units will now be reported for all [place] in [place]. us Margoth Souza MD URINE ORDERABLES Final Result [facility] Unless otherwise noted, all lab tests performed by: Division of Pathology and Laboratory Medicine [address] [place] [phone] * 30-Day Pre-Op Type and Screen (12/23/2023 8:51 AM CDT) Only the most recent of2 resultswithin the time period is included. ABORh O POS 12/23/2023 8:45 AM CDT [facility] ABSC Negative 12/23/2023 8:45 AM CDT [facility] BB Criteria Met Criteria met 12/23/2023 8:45 AM CDT [facility] Historical Record Check Complete 12/23/2023 8:45 AM CDT [facility] Blood Peripheral blood specimen / Unknown Venipuncture / Unknown 12/23/2023 8:51 AM CDT 12/23/2023 9:00 AM CDT Margoth Souza MD BLOOD BANK TEST ORDERABLES Final Result [facility] Transfusion Services [address] [place] [address] [address] [place] [address] * TMP Interpretation Exception PreOp Expiration (12/23/2023 8:51 AM CDT) Only the most recent of2 resultswithin the time period is included. TMP Exception 12/24/2023 10:47 AM CDT [facility] TMP Signature . 12/24/2023 10:47 AM CDT [facility] Blood Peripheral blood specimen / Unknown Venipuncture / Unknown 12/23/2023 8:51 AM CDT 12/23/2023 9:00 AM CDT Margoth Souza MD BLOOD BANK TEST ORDERABLES Final Result [facility] [address] [place] [address] * ACTH (12/09/2023 9:45 AM CDT) Only the most recent of2 resultswithin the time period is included. Pathologist [facility] ACTH 22 7 - 63 pg/mL 12/09/2023 12:19 PM CDT [facility] Blood Peripheral blood specimen / Unknown Venipuncture / Unknown 12/09/2023 9:45 AM CDT 12/09/2023 9:52 AM CDT Narrative [facility] - 12/09/2023 12:19 PM CDT Reference range established based on adult population (7 - 10am draws). No established reference values for p.m. draws. Results greater than 1826 pg/mL may not be reliable due to matrix effect with extended dilution as it exceeds the packaging materials inspector's recommended limit. ACTH reference intervals are established for the morning hours from 7-10 am. Due to the circadian rhythm of ACTH levels in plasma, the sample collection time must be noted. Caution should be exercised when interpreting such values and done in conjunction with clinical context. Veronica Del Castillo APRN LAB BLOOD ORDERABLES Final Result [facility] Unless otherwise noted, all lab tests performed by: Division of Pathology and Laboratory Medicine [address] [place] [phone] * DHEA Sulfate (12/09/2023 9:45 AM CDT) [facility] DHEAS-[place] [address] 20 - 299 mcg/dL 12/10/2023 12:10 PM CDT [facility] Comment: Test Performed by: [facility] [address] [place] [address] Labor And Delivery Nurse: Mary Jane Topete Ph.D.; CLIA# [id number] Blood Peripheral blood specimen / Unknown Venipuncture / Unknown 12/09/2023 9:45 AM CDT 12/09/2023 9:56 AM CDT Veronica OrtaMónica MARIE LAB BLOOD ORDERABLES Final Result [facility] * Cortisol, Total (12/09/2023 9:45 AM CDT) Only the most recent of4 resultswithin the time period is included. Cortisol 11.39 4.82 - 19.50 mcg/dL 12/09/2023 11:00 AM CDT [facility] Blood Peripheral blood specimen / Unknown Venipuncture / Unknown 12/09/2023 9:45 AM CDT 12/09/2023 9:55 AM CDT Narrative [facility] - 12/09/2023 11:00 AM CDT Cortisol [...] Castillo APRN LAB BLOOD ORDERABLES Final Result [facility] Unless otherwise noted, all lab tests performed by: Division of Pathology and Laboratory Medicine [address] [place] [phone] * IR CT GUIDED BIOPSY RENAL (10/03/2023 10:27 AM CDT) Anatomical Region Laterality Modality Abdomen/Pelvis, Organ (liver/spleen/kidney) Computed Tomography Narrative 10/04/2023 9:03 AM CDT Table formatting from the original result was not included. Date of Procedure: 10/03/23 Attending Physician: Kumar Comer MD Developmental Education Instructor: None Pre Procedure Diagnosis: Renal mass Post [...] Interventional Radiology required. us Shazia Arriaza MD [facility] IR ORDERABLES Final Re sult * Prothrombin Time (10/03/2023 9:27 AM CDT) Prothrombin Time 12.6 11.9 - 14.5 second(s) 10/03/2023 9:57 AM CDT [facility] International Normalization Ratio 0.98 0.87 - 1.12 10/03/2023 9:57 AM CDT [facility] Blood Peripheral blood specimen / Unknown Venipuncture / Unknown 10/03/2023 9:27 AM CDT 10/03/2023 9:28 AM CDT us ConradoJeanDannielle Ng PA-C LAB BLOOD ORDERABLES Final Result [facility] [address] [place] [address] * Type and Screen (10/03/2023 9:27 AM CDT) ABORh O POS 10/03/2023 9:17 AM CDT [facility] ABSC Negative 10/03/2023 9:17 AM CDT [facility] Clot Expiration 10/06/2023 23:59 10/03/2023 9:17 AM CDT [facility] Historical Record Check Complete 10/03/2023 9:17 AM CDT [facility] Blood Peripheral blood specimen / Unknown Venipuncture / Unknown 10/03/2023 9:27 AM CDT 10/03/2023 9:52 AM CDT us Abilio Ng PA-C BLOOD BANK TEST ORDERABLES Final Result [facility] [address] [place] [address] * X-ray Chest 2 Views (09/19/2023 9:24 [...] 0.43 <0.90 nmol/L 09/19/2023 2:59 PM CDT [facility] Metanephr Free-[place] <0.20 <0.50 nmol/L 09/19/2023 2:59 PM CDT [facility] Comment: ADDITIONAL INFORMATION This test was developed and its performance characteristics determined by [facility] in a manner consistent with CLIA requirements. This test has not been cleared or approved by the U.S. Food and Drug Administration. Test Performed by: [facility] [address] [place] [id number] Labor And Delivery Nurse: Scot Skelton M.D. Ph.D.; CLIA# [id number] Blood Peripheral blood specimen / Unknown Venipuncture / Unknown 09/16/2023 4:24 PM CDT 09/16/2023 4:41 PM CDT us Shazia Arriaza MD LAB BLOOD ORDERABLES Final Result Performing Organization Address City/[facility] [[email or web address]] Co de Phone Number [facility] * Hepatitis C Virus Antibody (09/16/2023 4:24 PM CDT) [facility] HCVAb. Non Reactive Non Reactive 09/17/2023 9:11 AM CDT [facility] Blood Peripheral blood specimen / Unknown Venipuncture / Unknown 09/16/2023 4:24 PM CDT 09/16/2023 4:41 PM CDT Narrative [facility] - 09/17/2023 9:11 AM CDT Antibody detection in the immunocompromised and immunosuppressed population may be delayed or absent entirely. Therefore serial testing, correlation with other clinical findings, and supplemental testing (if available) should be taken into consideration when interpreting the results. us Shazia Arriaza MD LAB BLOOD ORDERABLES Final Result [facility] Unless otherwise noted, all lab tests performed by: Division of Pathology and Laboratory Medicine [address] [place] [id number] * Aldosterone Level (09/16/2023 4:24 PM CDT) [facility] Aldosterone-Maxwell 8.1 <=21 ng/dL 09/20/2023 1:02 AM CDT [facility] Comment: ADDITIONAL INFORMATION Reference range for patients 11 years and older is based on upright A.M. collection from subjects without sodium restrictions. This test was developed and its performance characteristics determined by [facility] in a manner consistent with CLIA requirements. This test has not been cleared or approved by the U.S. Food and Drug Administration. Test Performed by: [facility] [address] [place] [address] Labor And Delivery Nurse: Scot Skelton M.D. Ph.D.; CLIA# [id number] Blood Peripheral blood specimen / Unknown Venipuncture / Unknown 09/16/2023 4:24 PM CDT 09/16/2023 4:41 PM CDT Shazia Arriaza MD LAB BLOOD ORDERABLES Final Result [facility] * Renin Activity (09/16/2023 4:24 PM CDT) [facility]/mL/h 09/19 3:42 PM CDT [facility] Comment: REFERENCE VALUE (Peripheral vein specimen) Na-deplete, upright: Mean: 5.9 Range: 2.9-10.8 Na-replete, upright: Mean: 1.0 Range: < or =0.6-3.0 ADDITIONAL INFORMATION Testing performed by Liquid Chromatography-Tandem Mass Spectrometry (LC-MS/MS). This test was developed and its performance characteristics determined by [facility] in a manner consistent with CLIA requirements. This test has not been cleared or approved by the U.S. Food and Drug Administration. Test Performed by: [facility] [address] [place] [address] Labor And Delivery Nurse: Scot Skelton M.D. Ph.D.; CLIA# [id number] Blood Peripheral blood specimen / Unknown Venipuncture / Unknown 09/16/2023 4:24 PM CDT 09/16/2023 4:41 PM CDT us Shazia Arriaza MD LAB BLOOD ORDERABLES Final Result [facility] * Urine Culture (09/16/2023 4:24 PM CDT) [facility] Urine Culture Normal site mirna present. Generally of low significance. Correlate with clinical data and culture history. 09/18/2023 8:31 AM CDT [facility] Urine Voided urine specimen / Unknown Non-blood Collection / Unknown 09/16/2023 4:24 PM CDT 09/16/2023 4:41 PM CDT Result Awa Arriaza MD MICROBIOLOGY - GENERAL ORD ERABLES Final Result [facility] Unless otherwise noted, all lab tests performed by: Division of Pathology and Laboratory Medicine [address] [place] [phone] * T4 (09/16/2023 4:24 PM CDT) Pathologist [facility] Thyroxine 7.0 4.5 - 11.7 mcg/dL 09/16/2023 5:55 PM CDT [facility] Blood Peripheral blood specimen / Unknown Venipuncture / Unknown 09/16/2023 4:24 PM CDT 09/16/2023 4:41 PM CDT Result Awa Arriaza MD LAB BLOOD ORDERABLES Final Result [facility] Unless otherwise noted, all lab tests performed by: Division of Pathology and Laboratory Medicine [address] [place] [address] * Confirm ABORh (09/16/2023 4:23 PM CDT) ABORh Confirm O POS 09/16/2023 4:15 PM CDT [facility] - [facility]SF[facility] Blood Peripheral blood specimen / Unknown Venipuncture / Unknown 09/16/2023 4:23 PM CDT 09/16/2023 4:41 PM CDT us Shazia Arriaza MD BLOOD BANK TEST ORDERABLES Final Result [facility] - TRANSFUSION [facility] Transfusion Services [address] [facility] [id number] [place] [address] * OSI CT Brain (07/17/2023 7:40 AM LADLE REPAIRMAN) Narrative Systemgenerated, Documentation - 08/08/2023 7:40 AM CDT Study acquired at another institution. For comparison only. No [facility] originated interpretation requested or available. 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 PCP - General Gastrointestinal Medical Oncology 05/04/24 Mary Jane Cassidy MD [address] [place] [phone] [email or web address] Consulting Physician Endocrinology 12/09/23 Barry He MD [address] [place] [phone] [email or web address] Consulting Physician Internal Medicine 12/23/23 Patience Hunt MD [address] [place] [phone] [email or web address] Consulting Physician Endocrinology 12/31/23 Marianela Hutchinson MD [address] [place] [phone] [email or web address] Consulting Physician Gastrointestinal Medical Oncology 04/13/24 Margoth Souza MD [address] [place] [phone] [email or web address] Consulting Physician Urology 04/15/24 Ceci Nicholson MD [address] [place] [phone] [email or web address] Consulting Physician Internal Medicine 04/09/24 Sigifredo Davenport MD [address] [place] [phone] [email or web address] Consulting Physician Internal Medicine 06/29/24
--- NOTE | 2024-07-16 12:12 | ER ---
Nurse's Notes [facility] Name: Zeke Mackay Sr Age: 59 yrs Sex: Male : 1965 Arrival Date: 07/16/2024 Time: 11:33 Bed 8 Private MD: Diagnosis: Hypotension, resolved Presentation: 07/16 11:59 Chief complaint: Here last night for high BP, dizziness and generalized weakness, hb reports home BP 70s/60s and still feeling weak/dizzy. Coronavirus screen: At this time, the client does not indicate any symptoms associated with coronavirus-19. Ebola Screen: No symptoms or risks identified at this time. Initial Sepsis Screen: Does the patient meet any 2 criteria? No. Patient's initial sepsis screen is negative. Does the patient have a suspected source of infection? No. Patient's initial sepsis screen is negative. Risk Assessment: Do you want to hurt yourself or someone else? Patient reports no desire to harm self or others. Onset of symptoms was July 15, 2024. 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 - Infectious Disease History:: Denies. - Social history:: Smoking status: Patient denies any tobacco usage or history of. Patient uses street drugs, marijuana. Screenin:13 [facility] ED Fall Risk Assessment (Adult) History of falling in the last 3 months, ph including since admission No falls in past 3 months (0 pts) Confusion or Disorientation No (0 pts) Intoxicated or Sedated No (0 pts) Impaired Gait No (0 pts) Mobility Assist Device Used No (0 pt) Altered Elimination No (0 pt) Score/Fall Risk Level 0 - 2 = Low Risk Oriented to surroundings, Maintained a safe environment, Hourly rounding (assess needs \T\ fall precautionary measures) done. Abuse screen: Denies threats or abuse. Denies injuries from another. Nutritional screening: No deficits noted. Tuberculosis screening: No symptoms or risk factors identified. Assessment: 12:24 General: Appears in no apparent distress. Behavior is calm, cooperative. Pain: Denies ph pain. Neuro: Level of Consciousness is awake, alert, obeys commands, Oriented to person, place, time, situation. Cardiovascular: Capillary refill < 3 seconds in bilateral fingers Patient's skin is warm and dry. Respiratory: Airway is patent Respiratory effort is even, unlabored, Respiratory pattern is regular, symmetrical. Derm: Skin is pink, warm \T\ dry. Musculoskeletal: Circulation, motion, and sensation intact. Range of motion: intact in all extremities. Vital Signs: 11:59 BP 144 / 71; Pulse 76; Resp 16; Temp 98.1(O); Pulse Ox 100% on R/A; Weight 83.91 kg; hb Height 6 ft. 2 in. ; Pain 0/10; 12:13 BP 122 / 70; Pulse 76; Resp 18; Pulse Ox 99% on R/A; ph 11:59 Body Mass Index 23.75 (83.91 kg, 187.96 cm) hb 11:59 Pain Scale: Adult hb ED Course: 11:35 Patient arrived in ED. mr 11:35 Veena Zhu MD is Attending Physician. sp3 11:53 John Parrish, ARTURO is Primary Nurse. bp 12:01 Triage completed. hb 12:02 Arm band placed on. hb 12:14 Patient has correct armband on for positive identification. Bed in low position. Call ph light in reach. Side rails up X 1. Pulse ox on. NIBP on. Door closed. Noise minimized. 12:25 No provider procedures requiring assistance completed. Patient did not have IV access ph during this emergency room visit. Administered Medications: No medications were administered Medication: 12:13 VIS not applicable for this client. ph Outcome: 12:11 Discharge ordered by . sp3 12:26 Discharged to home ambulatory, ph 12:26 Condition: good 12:26 Discharge instructions given to patient, Instructed on discharge instructions, follow up and referral plans. Demonstrated understanding of instructions, follow-up care, 12:26 Patient left the ED. ph Signatures: Hollie Garcia, Reg Reg Yohana Holden RN RN ph Mary Kay Munson RN RN hb John Parrish, RN RN bp Veena Zhu, MD MCCALLUM sp3
--- NOTE | 2024-07-16 12:12 | EDPHYS ---
Physician Documentation [facility] Name: Zeke Mackay Sr Age: 59 yrs Sex: Male : 1965 Arrival Date: 07/16/2024 Time: 11:33 Bed 8 Private MD: ED Physician Veena Zhu HPI: 07/16 12:09 This 59 yrs old Male presents to ER via Ambulatory with complaints of Low BP. sp3 12:09 59-year-old male with history of diabetes, cervical stenosis, prior DKA, hypertension, sp3 ongoing gastric cancer which is being evaluated at [facility], history of CAD with CABG, now presents to the ED for low blood pressure reading at home without any significant symptoms. Patient has been seen here the last 2 days with normal workups and discharges. Patient stated his blood pressure was 79 systolic at home but here it is 144/71. Patient has no current or ongoing symptoms. He has an appointment at [facility] which she wants to get to. ROS otherwise negative for headache, fever, shortness of breath, chest pain, abdominal pain, vomit, diarrhea, syncope, or any other signs or symptoms on ROS at this time.. 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 - Infectious Disease History:: Denies. - Social history:: Smoking status: Patient denies any tobacco usage or history of. Patient uses street drugs, marijuana. ROS: 12:10 Eyes: Negative for injury, pain, redness, and discharge, ENT: Negative for injury, sp3 pain, and discharge, Neck: Negative for injury, pain, and swelling, Cardiovascular: Negative for chest pain, palpitations, and edema, Respiratory: Negative for shortness of breath, cough, wheezing, and pleuritic chest pain, Abdomen/GI: Negative for abdominal pain, nausea, vomiting, diarrhea, and constipation, Back: Negative for injury and pain, MS/Extremity: Negative for injury and deformity, Skin: Negative for injury, rash, and discoloration, Neuro: Negative for headache, weakness, numbness, tingling, and seizure, Psych: Negative for depression, anxiety, suicide ideation, homicidal ideation, and hallucinations, Allergy/Immunology: Negative for hives, rash, and allergies, Endocrine: Negative for neck swelling, polydipsia, polyuria, polyphagia, and marked weight changes, 12:10 All other systems are negative, Exam: 12:11 Constitutional: This is a well developed, well nourished patient who is awake, alert, sp3 and in no acute distress. Head/Face: Normocephalic, atraumatic. Eyes: Pupils equal round and reactive to light, extra-ocular motions intact. Lids and lashes normal. Conjunctiva and sclera are non-icteric and not injected. Cornea within normal limits. Periorbital areas with no swelling, redness, or edema. Neck: Trachea midline, no thyromegaly or masses palpated, and no cervical lymphadenopathy. Supple, full range of motion without nuchal rigidity, or vertebral point tenderness. No Meningismus. Chest/axilla: Normal chest wall appearance and motion. Nontender with no deformity. No lesions are appreciated. Cardiovascular: Regular rate and rhythm with a normal S1 and S2. No gallops, murmurs, or rubs. Normal PMI, no JVD. No pulse deficits. Respiratory: Lungs have equal breath sounds bilaterally, clear to auscultation and percussion. No rales, rhonchi or wheezes noted. No increased work of breathing, no retractions or nasal flaring. Abdomen/GI: Soft, non-tender, with normal bowel sounds. No distension or tympany. No guarding or rebound. No evidence of tenderness throughout. Back: No spinal tenderness. No costovertebral tenderness. Full range of motion. Skin: Warm, dry with normal turgor. Normal color with no rashes, no lesions, and no evidence of cellulitis. MS/ Extremity: Pulses equal, no cyanosis. Neurovascular intact. Full, normal range of motion. Neuro: Awake and alert, GCS 15, oriented to person, place, time, and situation. Cranial nerves II-XII grossly intact. Motor strength 5/5 in all extremities. Sensory grossly intact. Cerebellar exam normal. Normal gait. Vital Signs: 11:59 BP 144 / 71; Pulse 76; Resp 16; Temp 98.1(O); Pulse Ox 100% on R/A; Weight 83.91 kg; hb Height 6 ft. 2 in. ; Pain 0/10; 12:13 BP 122 / 70; Pulse 76; Resp 18; Pulse Ox 99% on R/A; ph 11:59 Body Mass Index 23.75 (83.91 kg, 187.96 cm) hb 11:59 Pain Scale: Adult hb MDM: 11:36 Medical Screening Exam initiated sp3 12:11 Data reviewed: vital signs, nurses notes, old medical records. ED course: Patient sp3 asymptomatic and normotensive. No intervention indicated. He wants to be discharged to make his appointment at [facility] so we will discharge him at this time.. Administered Medications: No medications were administered Disposition Summary: 07/16/24 12:11 Discharge Ordered Notes: Location: Home sp3 Condition: Stable sp3 Diagnosis - Hypotension, resolved sp3 Followup: sp3 - With: Private Physician - When: Upon discharge from the Emergency Department - Reason: Continuance of care Discharge Instructions: - Discharge Summary Sheet sp3 - Hypotension sp3 Forms: - Medication Reconciliation Form sp3 - Antibiotic Education sp3 - Prescription Opioid Use sp3 - Patient Portal Instructions sp3 - Leadership Thank You Letter sp3 Signatures: Mary Kay Munson RN RN Veena Herman MD MD sp3 Corrections: (The following items were deleted from the chart) 12:12 11:37 Orthostatics ordered. sp3 ph
[2024-07-16 12:30] VITALS: TEMP 98.1
[2024-07-16 12:32] VITALS: BP 122/70; O2SAT 99
== END 2024-07-16 12:26 | disposition home or self-care (01) ==
LOC: ER 11:33
DX: I95.9 Hypotension, unspecified (principal); C16.2 Malignant neoplasm of body of stomach; I10 Essential (primary) hypertension; Z95.1 Presence of aortocoronary bypass graft
CPT/HCPCS: 99283

== ENCOUNTER 2024-07-24 05:15 | Emergency (ER) | payer OTHER, BC ==
--- OUTSIDE RECORDS SUMMARY | 2024-07-24 05:22 | XMS REPORT | Clinical Summary ---
Author Name Unknown Organization [facility] Address [address] [place] [address] Care Team Providers Care Vp Of Digital Marketing Name Role Phone Margoth Souza MD Primary Care Provider [phone] Mary Jane Cassidy MD Unavailable [phone] Barry He MD Unavailable Patience Hunt MD Unavailable ZhuEagle gomez DO Unavailable [phone] Marianela Hutchinson MD Unavailable [phone] aMrgoth Souza MD Unavailable Ceci Nicholson MD Unavailable [phone] Marianela Hutchinson MD Primary Care Provider [phone] Sigifredo Davenport MD Unavailable Allergies No known [...] (75 mg) by mouth daily. 01/20/20 Active amLODIPine (NORVASC) 5 mg tablet DAILY 02/28/20 24 Active metFORMIN (GLUCOPHAGE-XR) 500 mg 24 hr tablet Take 2 tablets every day by oral route with meals for 30 days. 12/12/19 23 Active sucralfate (CARAFATE) 100 mg/mL suspension BEFORE MEALS AND AT BEDTIME 02/29/20 24 Active promethazine (PHENERGAN) 25 mg tabletIndicatio ns:Adenocarcino ma of stomach Take 1 tablet (25 mg) by mouth every 6 (six) hours as needed for nausea or vomiting. 60 tablet 2 07/16/19 25 Active ondansetron (Zofran) 8 mg tabletIndicatio ns:Adenocarcino ma of stomach Take 1 tablet (8 mg) by mouth every 8 (eight) hours as needed for nausea or vomiting. 30 tablet 2 07/16/19 25 Active OLANZapine (ZyPREXA) 2.5 mg tabletIndicatio ns:Adenocarcino ma of stomach Take 1 tablet (2.5 mg) by mouth at bedtime. 30 tablet 1 07/16/19 25 Active dapagliflozin propanediol (Farxiga) 10 mg tablet [...] 24 024 Discontinued(St op Taking at Discharge) prochlorperazin e (Compazine) 10 mg tabletIndicatio ns:Adenocarcino ma of stomach Take 1 tablet (10 mg) by mouth every 6 (six) hours as needed for nausea or vomiting. 30 tablet 2 04/09/20 24 025 Discontinued metoclopramide (Reglan) 5 mg tabletIndicatio ns:Adenocarcino ma, [...] by Tylenol). 60 mL 4 3:43 PM TANK HOUSE SUPERVISOR 04/15/20 24 025 Discontinued OLANZapine (ZyPREXA) 2.5 mg tabletIndicatio ns:Adenocarcino ma of stomach Take 1 tablet (2.5 mg) by mouth at bedtime. 30 tablet 1 05/04/20 24 025 Discontinued(Re order) promethazine (PHENERGAN) 25 mg tabletIndicatio ns:Adenocarcino ma of stomach Take 1 tablet (25 mg) by mouth every 6 (six) hours as needed for nausea or vomiting. 60 tablet 2 05/04/20 24 025 Discontinued(Re order) ondansetron (Zofran) 8 mg tabletIndicatio ns:Adenocarcino ma of stomach Take 1 tablet (8 mg) by mouth every 8 (eight) hours as needed for nausea or vomiting. 30 tablet 2 05/04/20 24 025 Discontinued(Re order) fluconazole (Diflucan) 40 mg/mL suspensionIndic ations:Candidal esophagitis Take 10 mL (400 mg) by mouth daily for 1 day, THEN 5 mL (200 mg) daily for 13 days. 75 mL 05/23/19 025 Active Problems Patient Care Coordination No [...] 9% indicating poor diabetic control 01/02/2024 04/14/2024 salvage determiner current use of systemic steroid 01/02/2024 04/14/2024 Diabetic ketoacidosis 2023 Overview (01/01/2024): Hospitalized locally 12/03/2023-12/06/2023 Encounters Date Type Department Care Team Description 07/22/2024 Orders Only Ambulatory Treatment [facility] - [facility] [address] [facility], 8th [place] [address] Marianela Hutchinson MD Adenocarcinoma of stomach (Primary Dx) 07/21/2024 Telephone [facility] [place] [address] [facility], 8th [place] [address] Rosanna Álvarez, ARTURO Chemotherapy Teaching 07/16/2024 2:40 PM TANK HOUSE SUPERVISOR [facility] [address] [place] [address] Main [facility], 7th [place] [address] Marianela Hutchinson MD Adenocarcinoma of stomach (Primary Dx) 07/16/2024 Orders Only [facility] [address] [place] [address], 7th [place] [address] Marianela Hutchinson MD Adenocarcinoma of stomach (Primary Dx) 07/16/2024 Orders Only [facility] [address] [place] [address], 7th [place] [address] Radha Castellon [facility] Adenocarcinoma of stomach (Primary Dx) 07/16/2024 Travel 07/15/2024 10:08 AM TANK HOUSE SUPERVISOR - 07/15/2024 11:59 PM TANK HOUSE SUPERVISOR Hospital Encounter Main CT IMAGING [facility], 3rd [place] [address] Mary Kay Santamaria APRN Adenocarcinoma of stomach Discharge Disposition: Home 07/15/2024 9:49 AM TANK HOUSE SUPERVISOR - 07/15/2024 10:07 AM TANK HOUSE SUPERVISOR Hospital Encounter [facility] [address] [facility], [place] [address] Mary Kay Santamaria APRN Adenocarcinoma of stomach Discharge Disposition: Home 07/07/2024 Orders Only [facility] [address] [place] [address], 7th [place] [address] Gillian Gomez PA-C Adenocarcinoma of stomach (Primary Dx) 07/06/2024 Telephone [facility] - Surgical Oncology [address] [place] [address] Main dg, 7th [place] [address] Mary Kay Santamaria, CONTROL ROOM SUPERVISOR 07/06/2024 Orders Only [facility] - Surgical Oncology [address] [place] [address] Main dg, 7th [place] [address] Mary Kay Santamaria, CONTROL ROOM SUPERVISOR 07/06/2024 Orders Only [facility] [address] [place] [address] Main dg, 7th [place] [address] Gillian Gomez PA-C Adenocarcinoma of stomach (Primary Dx) 07/06/2024 Multidisciplinary Visit [facility] [address] [place] [address] Main [facility], 7th [place] [address] Gillian Gomez PA-C 07/06/2024 Orders Only [facility] [address] [place] [address] Main dg, 7th [place] [address] Donnell Van Adenocarcinoma of stomach (Primary Dx) 07/02/2024 11:00 AM TANK HOUSE SUPERVISOR Nutrition Clinical Nutrition For your Nutrition appointment location directions please call: Marianela Hutchinson MD Munder, Kathryn, SCOTT Left without seen 07/02/2024 10:30 AM TANK HOUSE SUPERVISOR [facility] - Surgical Oncology [address] [place] [address] Main Bldg, 7th Floor Elevator A [place] [id number] John Fong MD Adenocarcinoma of stomach 07/02/2024 Documentation [facility] - Surgical Oncology [address] [place] [address] Main dg, 7th Floor Elevator A [place] [id number] John Fong MD 06/30/2024 3:33 PM TANK HOUSE SUPERVISOR Anesthesia Event Perioperative Evaluation and Management Center [address] [place] [address] Main dg, 6th Floor Elevator A [place] [id number] Lien Antonio RN 06/30/2024 12:25 PM TANK HOUSE SUPERVISOR Anesthesia Event Endoscopy Center [address] [place] [address] Main [facility], 5th [place] [address] Susana Kelly MD 06/30/2024 12:00 PM TANK HOUSE SUPERVISOR - 06/30/2024 12:45 PM TANK HOUSE SUPERVISOR Surgery Endoscopy Center [address] [place] [address], 5th Floor Elevator C [place] [id number] Barndon Alcala MD DIAGNOSTIC UPPER GASTROINTESTINAL ENDOSCOPY 06/30/2024 10:15 AM TANK HOUSE SUPERVISOR - 06/30/2024 2:24 PM TANK HOUSE SUPERVISOR Hospital Encounter Endoscopy Center [address] [place] [address], 5th Floor Elevator [address] [place] [phone] Brandon Alcala MD Adenocarcinoma of stomach Discharge Disposition: Home 06/30/2024 Travel 06/29/2024 9:00 AM TANK HOUSE SUPERVISOR Consult Perioperative Evaluation and Management [address] [place] [address], 6th [place] [address] Mary Kay Santamaria APRN Vu, Khanh D, MD Encounter for preprocedural cardiovascular examination (Primary Dx); Coronary arteriosclerosis, not otherwise specified; Cardiomyopathy, not otherwise specified; Hypertension; salvage determiner current use of 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; Type 2 diabetes mellitus with hyperglycemia; Dyslipidemia; Hyponatremia; Hyperkalemia; Adenocarcinoma of stomach; Paroxysmal atrial fibrillation; Hyperlipidemia, not otherwise specified 06/29/2024 8:00 AM TANK HOUSE SUPERVISOR POEM Appointments Perioperative [facility] Management Center [address] [place] [address], 6th [place] [address] Marianela Hutchinson MD 06/29/2024 7:30 AM TANK HOUSE SUPERVISOR - 06/29/2024 11:59 PM TANK HOUSE SUPERVISOR Hospital Encounter [facility] - Cardiology [address] [place] [address] Main [facility], 2nd Floor Elevator [place] [phone] Mary Kay Santamaria APRN Adenocarcinoma of stomach Discharge Disposition: Home 06/29/2024 Travel 06/23/2024 Documentation [facility] [address] [place] [address], 7th [place] [address] Mony Saavedra RN 06/22/2024 12:20 PM TANK HOUSE SUPERVISOR [facility] [address] [place] [address], 7th [place] [address] Marianela Hutchinson MD Adenocarcinoma, NOS of stomach, NOS 06/22/2024 Orders Only [facility] [address] [place] [address], [facility] [place] [address] Radha Castellon, [facility] 06/22/2024 Travel 06/20/2024 10:45 AM TANK HOUSE SUPERVISOR - 06/20/2024 11:59 PM TANK HOUSE SUPERVISOR Hospital Encounter Diagnostic Imaging Center [address] [place] [address], 3rd [place] [address] Adenocarcinoma, NOS of stomach, NOS; Malignant neoplasm of overlapping sites of esophagus Discharge Disposition: Home 06/20/2024 10:08 AM TANK HOUSE SUPERVISOR - 06/20/2024 10:44 AM TANK HOUSE SUPERVISOR Hospital Encounter [facility] [address] [place] [address], [place] [address] Gillian Gomez PA-C Adenocarcinoma, NOS of stomach, NOS Discharge Disposition: Home 06/16/2024 [facility] - Surgical Oncology [address] [place] [address], 7th [place] [address] Mary Kay Santamaria APRN 06/15/2024 1:30 PM TANK HOUSE SUPERVISOR Infusion [facility] - [facility] [address] [facility], 8th [place] [address] Marianela Hutchinson MD [facility] RN Adenocarcinoma of stomach (Primary Dx); Iron deficiency anemia, not otherwise specified 06/15/2024 12:40 PM TANK HOUSE SUPERVISOR [facility] [address] [place] [address], [facility] [place] [address] Marianela Hutchinson MD Adenocarcinoma, NOS of stomach, NOS; Malignant neoplasm of overlapping sites of esophagus 06/15/2024 10:24 AM TANK HOUSE SUPERVISOR - 06/15/2024 11:59 PM TANK HOUSE SUPERVISOR Hospital Encounter [facility] [address] [place] [address] Main [facility], [place] [address] Marianela Hutchinson MD Adenocarcinoma of stomach; Adenocarcinoma, NOS of stomach, NOS Discharge Disposition: Home 06/15/2024 Orders Only [facility] [address] [place] [address] Main [facility], 7th [place] [address] Radha Castellon, [facility] Adenocarcinoma of stomach (Primary Dx) 06/15/2024 Orders Only [facility] [address] [place] [address] Main [facility], 7th [place] [address] Gillian Gomez PA-C 06/15/2024 Travel 06/15/2024 Telephone [facility] - Gastroenterology, Hepatology & Nutrition [address] [place] [address] Main [facility], 7th [place] [address] Arnaldo Araujo PA-C 06/15/2024 Multidisciplinary Visit [facility] [address] [place] [address] Main [facility], 7th [place] [address] Lakeshia Pablo PA 06/15/2024 Orders Only [facility] [address] [place] [address] Main [facility], [facility] [place] [address] Marianela Hutchinson MD Adenocarcinoma of stomach (Primary Dx) 06/12/2024 Prep for Surgery [facility] - Gastroenterology, Hepatology & Nutrition [address] [place] [address] Main [facility], 7th [place] [address] Arnaldo Araujo PA-C Adenocarcinoma of stomach (Primary Dx) 06/12/2024 Telephone [facility] - Surgical Oncology [facility] [facility], [facility] [place] [address] Mary Kay Santamaria APRN 06/12/2024 Orders Only [facility]astro[facility] Center - Surgical Oncology [facility] Main dg, 7th [place] [address] Mary Kay Santamaria APRN Adenocarcinoma of stomach (Primary Dx) 06/10/2024 Orders Only [facility]astro[facility] - Surgical Oncology [facility] Main [facility], 7th [place] [address] Mary Kay Santamaria APRN Adenocarcinoma of stomach (Primary Dx) 06/05/2024 Telephone [facility] - Gastroenterology, Hepatology & Nutrition [facility] Main [facility], 7th [place] [address] Arnaldo Araujo PA-C 06/03/2024 5:30 PM TANK HOUSE SUPERVISOR Infusion [facility] - [facility] [address] [facility], 8th [place] [address] Marianela Hutchinson MD Lewandowski, Teresa M, RN Adenocarcinoma of stomach (Primary Dx) 06/03/2024 Travel 06/02/2024 Telephone [facility] [address] [place] [address], 7th [place] [address] Mony Saavedra, ARTURO 06/01/2024 1:00 PM TANK HOUSE SUPERVISOR Infusion [facility] [address] [facility], Floor 6 [place] [address] Marianela Hutchinson MD Shaik, Anna Marie B, RN Adenocarcinoma of stomach (Primary Dx); Iron deficiency anemia, not otherwise specified 06/01/2024 10:53 AM TANK HOUSE SUPERVISOR - 06/01/2024 11:59 PM TANK HOUSE SUPERVISOR Hospital Encounter [facility] [address] [place] [address], [place] [address] Marianela Hutchinson MD Adenocarcinoma of stomach; Iron deficiency anemia, not otherwise specified Discharge Disposition: Home 06/01/2024 Orders Only [facility] [address] [place] [address], 7th [place] [address] Marianela Hutchinson MD 06/01/2024 Orders Only [facility] [address] [place] [address] Main [facility], 7th [place] [address] Rahda Castellon, [facility] Adenocarcinoma of stomach (Primary Dx); Iron deficiency anemia, not otherwise specified 06/01/2024 Travel 06/01/2024 Orders Only [facility] [address] [facility], Floor 6 [place] [address] Marianela Hutchinson MD Adenocarcinoma of stomach (Primary Dx) 05/26/2024 Telephone [facility] - Gastroenterology, Hepatology & Nutrition [facility] [facility], 7th [place] [address] Arnaldo Araujo PA-C 05/22/2024 Telephone [facility] - Gastroenterology, Hepatology & Nutrition [address] [facility], 7th [place] [address] Arnaldo Araujo PA-C 05/22/2024 Orders Only [facility] - Gastroenterology, Hepatology & Nutrition [address] [place] [address], 7th [place] [address] Arnaldo Araujo PA-C Candidal esophagitis (Primary Dx) 05/20/2024 4:30 PM TANK HOUSE SUPERVISOR - 05/20/2024 11:59 PM TANK HOUSE SUPERVISOR Hospital Encounter Ambulatory Treatment Center - [address], 2nd Floor, [place] [address] Marianela Hutchinson MD Lewandowski, Teresa M, RN Adenocarcinoma of stomach Discharge Disposition: Home 05/19/2024 12:44 PM TANK HOUSE SUPERVISOR Anesthesia Event Endoscopy Center [address] [place] [address], 5th Floor Elevator [address] [place] [id number] Maurice Ferrera MD Thomas, Ashly [facility] 05/19/2024 12:00 PM TANK HOUSE SUPERVISOR - 05/19/2024 1:10 PM TANK HOUSE SUPERVISOR Surgery Endoscopy Center [address] [place] [address], 5th Floor Elevator [address] [place] [phone] Brandon Alcala MD UPPER GASTROINTESTINAL ENDOSCOPY OF ESOPHAGUS, STOMACH, OR DUODENUM ANDJ ADJACENT STRUCTURES, WITH ENDOSCOPIC ULTRASOUND EXAMINATION 05/19/2024 11:17 AM TANK HOUSE SUPERVISOR - 05/19/2024 2:49 PM TANK HOUSE SUPERVISOR Hospital Encounter Endoscopy Center [address] [place] [address], 5th [place] [address] Brandon Alcala MD Adenocarcinoma of stomach Discharge Disposition: Home 05/19/2024 Travel 05/18/2024 1:00 PM TANK HOUSE SUPERVISOR Infusion [facility] [address] [facility], Floor 6 [place] [address] Marianela Hutchinson MD Rupp, Alexa B RN Adenocarcinoma of stomach (Primary Dx) 05/18/2024 12:20 PM TANK HOUSE SUPERVISOR Follow-Up [facility] [address] [place] [address], 7th [place] [address] Marianela Hutchinson MD Adenocarcinoma, NOS of stomach, NOS 05/18/2024 11:00 AM TANK HOUSE SUPERVISOR POEM Appointments Perioperative Evaluation and Management Center [address] [place] [address], 6th [place] [address] Marianela Hutchinson MD 05/18/2024 10:32 AM TANK HOUSE SUPERVISOR - 05/18/2024 11:59 PM TANK HOUSE SUPERVISOR Hospital Encounter [facility] [address] [place] [address], [place] [address] Gillian Gomez PA-C Adenocarcinoma, NOS of stomach, NOS Discharge Disposition: Home 05/18/2024 Orders Only [facility] [address] [place] [address], 7th [place] [address] Marianela Hutchinson MD Adenocarcinoma of stomach (Primary Dx) 05/18/2024 Orders Only [facility] [address] [place] [address], 7th [place] [address] Radha Castellon [facility] Adenocarcinoma of stomach (Primary Dx); Iron deficiency anemia, not otherwise specified 05/18/2024 Travel 05/15/2024 11:59 PM TANK HOUSE SUPERVISOR Anesthesia Event Perioperative Evaluation [facility] Management Center [address] [place] [address], 6th [place] [address] Eri Lynne RN 05/06/2024 5:30 PM TANK HOUSE SUPERVISOR Infusion [facility] - [facility] [address] [facility], 8th [place] [address] Marianela Hutchinson MD Pagara, Leni S RN Adenocarcinoma of stomach 05/04/2024 12:36 PM TANK HOUSE SUPERVISOR - 05/04/2024 11:59 PM TANK HOUSE SUPERVISOR Hospital Encounter Ambulatory Treatment Center - Main Building [address] [place] [address], 2nd Floor, [place] [address] Gillian Gomez PA-C Jo, Edifia Sungsoon, RN Adenocarcinoma of stomach (Primary Dx) Discharge Disposition: Home 05/04/2024 12:20 PM TANK HOUSE SUPERVISOR Follow[facility]Up [facility] [address] [place] [address], 7th [place] [address] Marianela Hutchinson MD Adenocarcinoma, NOS of stomach, NOS 05/04/2024 11:10 AM TANK HOUSE SUPERVISOR - 05/04/2024 12:35 PM TANK HOUSE SUPERVISOR Hospital Encounter Diagnostic Laboratory [facility] [address] [place] [address], Elevator [address] [place] [id number] Gillian Gomez PA-C Adenocarcinoma, NOS of stomach, NOS; Adenocarcinoma of stomach Discharge Disposition: Home 05/04/2024 Orders Only [facility] [address] [place] [address], 7th [place] [address] Marianela Hutchinson MD Adenocarcinoma of stomach (Primary Dx) 05/04/2024 Orders Only [facility] [address] [place] [address], 7th Floor Elevator [place] [phone] Radha Castellon Werner Adenocarcinoma of stomach (Primary Dx) 05/04/2024 Travel 04/30/2024 Orders Only [facility] - Surgical Oncology [address] [place] [address], 7th Floor Elevator A [place] [id number] Mary Kay Santamaria APRN Adenocarcinoma of stomach (Primary Dx); Paroxysmal atrial fibrillation; Hyperlipidemia, not otherwise specified; Type 2 diabetes mellitus with hyperglycemia 04/27/2024 8:05 PM TANK HOUSE SUPERVISOR Ancillary Procedure Image Library [address] [place], [place] [id number] Cancer 04/27/2024 8:00 PM TANK HOUSE SUPERVISOR Ancillary Procedure Image Library [address] [place] [address] Cancer 04/27/2024 Orders Only [facility] [address] [place] [address], [facility] [place] [address] Donnell Van Adenocarcinoma of stomach (Primary Dx) 04/24/2024 Documentation Vascular Access and Procedures Center [address] [facility], 8th Floor Elevator U [place] [address] Mary Kay Santamaria, CONTROL ROOM SUPERVISOR 04/24/2024 Orders Only [facility] - Surgical Oncology [address] [place] [address], [address] [place], [place] [address]ator [place] [phone] Mary Kay Santamaria, CONTROL ROOM SUPERVISOR Adenocarcinoma, NOS of stomach, NOS (Primary Dx) 04/24/2024 Telephone [facility] - Surgical Oncology [address] [place] [address], [address] [place], [place] [id number] Mary Kay Santamaria, CONTROL ROOM SUPERVISOR 04/22/2024 Lab Requisition [facility] Sincere Moralez MD Jain, Shilpa, MD 04/21/2024 Orders Only [facility] [address] [place] [address], [address] [place] [address] Elevator [place] [phone] Gillian Gomez PA-C Adenocarcinoma, NOS of stomach, NOS (Primary Dx); Adenocarcinoma of stomach 04/16/2024 Telephone [facility] TARIQDEBebeto PHYSICIAN [address] [place] [address] 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, automotive manufacturer Call 04/15/2024 10:09 AM TANK HOUSE SUPERVISOR Anesthesia Event MAIN OR [address] [place] [address] Meenakshi Crowe MD Miller, Wendy, VISUAL ASSOCIATE 04/15/2024 10:05 AM TANK HOUSE SUPERVISOR - 04/15/2024 1:25 PM TANK HOUSE SUPERVISOR Surgery MAIN OR [address] [place] [address] John Fong MD ROBOTIC ASSISTED SURGICAL LAPAROSCOPY 04/15/2024 7:32 AM TANK HOUSE SUPERVISOR - 04/15/2024 11:50 PM TANK HOUSE SUPERVISOR Hospital Encounter MAIN OR [address] [place] [address] John Fong MD Adenocarcinoma of stomach (Primary Dx) Discharge Disposition: Home 04/15/2024 Travel 04/14/2024 2:30 PM TANK HOUSE SUPERVISOR Consult [facility] - Surgical Oncology [address] [place] [address], 7th [place] [address] Gillian Gomez PA-C Badgwell, Brian, MD Adenocarcinoma, NOS of stomach, NOS (Primary Dx); Nausea 04/14/2024 Documentation [facility] - Surgical Oncology [address] [place] [address], [facility] [place] [address] John Fong MD 04/13/2024 3:00 PM TANK HOUSE SUPERVISOR Consult [facility] [address] [place] [address], [facility] [place] [address] Marianela Hutchinson MD Mass of stomach (Primary Dx) 04/13/2024 2:02 PM TANK HOUSE SUPERVISOR Anesthesia Event Perioperative Evaluation and Management Center [address] [place] [address], 6th Floor Elevator [place] [phone] Curtis Moctezuma PA 04/12/2024 8:22 AM TANK HOUSE SUPERVISOR - 04/12/2024 3:42 PM TANK HOUSE SUPERVISOR Emergency MAIN [id number] [address] [place] [address] Nghia Zhu MD Elsayem, Ahmed, MD Nausea and vomiting (Primary Dx); Gastric cancer; Pancreatitis Discharge Disposition: Left Against Medical Advice 04/12/2024 Travel 04/09/2024 8:25 PM TANK HOUSE SUPERVISOR Ancillary Procedure Image Library [address] [place] [address] Margoth Souza MD Cancer 04/09/2024 8:20 PM TANK HOUSE SUPERVISOR Ancillary Procedure Image Library [address] [place] [address] Margoth Souza MD Cancer 04/09/2024 8:15 PM TANK HOUSE SUPERVISOR Ancillary Procedure Image Library [address] [place] [address] Margoth Souza MD Cancer 04/09/2024 8:10 PM TANK HOUSE SUPERVISOR Ancillary Procedure Image Library [address] [place] [address] Margoth Souza MD Cancer 04/09/2024 8:05 PM TANK HOUSE SUPERVISOR Ancillary Procedure [facility] [address] [place] [address] Margoth Souza MD Cancer 04/09/2024 8:00 PM TANK HOUSE SUPERVISOR Ancillary Procedure [facility] [address] [place] [address] Margoth Souza MD Cancer 04/09/2024 10:48 AM TANK HOUSE SUPERVISOR - 04/09/2024 11:59 PM TANK HOUSE SUPERVISOR Hospital Encounter [facility] [address] [place] [address], [place] [address] Ceci Nicholson MD Encounter for other preprocedural examination; Atherosclerosis of coronary 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, not otherwise specified; 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 Discharge Disposition: Home 04/09/2024 10:00 AM TANK HOUSE SUPERVISOR POEM Appointments [facility] [address] [place] [address], 6th [place] [address] Margoth Souza MD 04/09/2024 9:56 AM TANK HOUSE SUPERVISOR - 04/09/2024 10:47 AM TANK HOUSE SUPERVISOR Hospital Encounter [facility] [address] [place] [address], 2nd [place] [address] Ceci Nicholson MD Adenocarcinoma of stomach; Hyperlipidemia, not otherwise specified; Encounter for other preprocedural examination; Atherosclerosis of coronary 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, not otherwise specified Discharge Disposition: Home 04/09/2024 9:00 AM TANK HOUSE SUPERVISOR Consult Perioperative Evaluation and Management [address] [place] [address] Main [facility], 6th [place] [address] Mary Kay Santamaria, Ceci Rooney MD Encounter for other preprocedural examination (Primary Dx); Adenocarcinoma of stomach; Paroxysmal atrial fibrillation; Hypertension; 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; Hyperlipidemia, not otherwise specified; Current use of 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; Atherosclerosis of coronary 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, not otherwise specified 04/09/2024 Travel 04/08/2024 Prep for Surgery [facility] - Surgical [facility], [address] [place] [address] [place] [address] Mary Kay Santamaria APRN Adenocarcinoma of stomach (Primary Dx); Mass of stomach 04/08/2024 Orders Only [facility] - Surgical On[facility], [address] [place] [address] [place] [address] Mary Kay Santamaria APRN Adenocarcinoma of stomach (Primary Dx); Paroxysmal atrial fibrillation; Hypertension; 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; Hyperlipidemia, not otherwise specified; Current use of 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 04/08/2024 Orders Only [facility] [address] [place] [address], [address] [place], [place] [address] [address] Gillian Gomez PA-C Adenocarcinoma, NOS of stomach, NOS (Primary Dx) 04/06/2024 Orders Only [facility] [address] [place] [address], [facility] [place] [address] Roberto Poole PA 04/06/2024 Orders Only [facility] [address] [place] [address], [facility] [place] [address] Roberto Poole PA Mass of stomach (Primary Dx) 04/06/2024 Orders Only [facility] [address] [place] [address], [facility] [place] [address] Roberto Poole PA Mass of stomach (Primary Dx) 04/06/2024 Telephone [facility] [address] [place] [address], [facility] [place] [address] Anais Meng RN 02/11/2024 Travel 02/10/2024 3:30 PM CDT Telemedicine [facility] [address] [place] [address], 7th [place] [address] Margoth Souza MD Renal mass (Primary Dx) 01/02/2024 7:15 AM CDT Ancillary Procedure MAIN OR [address] [place] [address] Margoth Souza MD 01/02/2024 7:00 AM CDT - 01/02/2024 11:40 AM CDT Surgery MAIN OR [address] [place] [address] Margoth Souza MD ROBOTIC ASSISTED PARTIAL NEPHRECTOMY 01/02/2024 6:58 AM CDT Anesthesia Event MAIN OR [address] [place] [address] Alonzo Liu MD Majekodumi, Jessy, PAXTON 01/02/2024 5:04 AM CDT - 01/03/2024 5:05 PM CDT Hospital Encounter MAIN P09B [address] [place] [address] Margoth Souza MD Renal mass (Primary Dx) Discharge Disposition: Home 01/02/2024 Travel 12/31/2023 1:04 PM CDT - 12/31/2023 11:59 PM CDT Hospital Encounter Main CT IMAGING [address] [place] [address], 3rd [place] [address] Margoth Souza MD Renal mass Discharge Disposition: Home 12/31/2023 8:00 AM CDT Consult Endocrine Center [address] [place] [address], 6th [place] [address] Nakia Kirby APRN Khan, Sonya, MD Type 2 diabetes mellitus with hyperglycemia [E11.65] (Primary Dx); Pre-surgery evaluation 12/30/2023 9:30 AM CDT Office Visit [facility] [address] [place] [address], 7th [place] [address] Margoth Souza MD Renal mass 12/30/2023 Travel 12/30/2023 Telephone Endocrine Center [address] [place] [address], [facility] [place] [address] Winnie Archibald, RN Appointment (Cannot get internet-phone broke) 12/30/2023 Orders Only [facility] [address] [facility], 7th [place] [address] Roberto Poole PA Renal mass (Primary Dx) 12/29/2023 Orders Only Endocrine Center [address] [place] [address], [facility] [place] [address] Veronica Del Castillo APRN 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); Endocrine/metabolic screening; Renal cell carcinoma <Left side> 12/25/2023 8:36 AM CDT Anesthesia Event [facility] [address] [place], [place] [address] [address] Lien Antonio RN 12/23/2023 10:30 AM CDT Consult Perioperative Evaluation and Management [address] [place] [address], [facility] Floor [facility] [place] [address] Margoth Souza MD Oh, Jeong, MD Encounter for other preprocedural examination (Primary Dx); Renal mass; Hyperlipidemia, not otherwise specified 12/23/2023 9:00 AM CDT POEM Appointments [facility] [address] [place] [address], [facility] Floor [facility] [place] [address] Margoth Souza MD Pre-surgery evaluation (Primary Dx) 12/23/2023 8:45 AM CDT - 12/23/2023 11:59 PM CDT Hospital Encounter [facility] [address] [place] [address] Margoth Souza MD Renal mass Discharge Disposition: Home 12/23/2023 Travel 12/09/2023 9:33 AM CDT - 12/09/2023 11:59 PM CDT Hospital Encounter [facility] [address] [place], [place] [address], [place] [address] Veronica Del Castillo APRN 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; Endocrine/metabolic screening Discharge Disposition: Home 12/09/2023 8:30 AM CDT Consult Endocrine Center [facility], 6th [place] [address] Mary Jane Cassidy MD 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); Endocrine/metabolic screening; Renal cell carcinoma <Left side> 12/09/2023 Travel 10/23/2023 Orders Only [facility] [address] [place] [address], 7th [place] [address] Roberto Poole PA Renal mass (Primary Dx); Adrenal mass 10/03/2023 9:30 AM CDT - 10/03/2023 11:59 PM CDT Hospital Encounter Interventional Radiology [address] [place] [address], 4th [place] [address] Shazia Arriaza MD McRae, Stephen, MD Renal mass Discharge Disposition: Home 10/03/2023 8:30 AM CDT - 10/03/2023 9:29 AM CDT Hospital Encounter [facility] [address] [place] [address] Margoth Souza MD Renal mass Discharge Disposition: Home 10/03/2023 Travel 10/02/2023 8:24 AM CDT - 10/02/2023 11:59 PM CDT Hospital Encounter Interventional Radiology [address] [place] [address], 4th [place] [address] Margoth Souza MD Ho, Conrado-Dannielle Hron, PAJeanC Encounter for other preprocedural examination (Primary Dx); Renal mass; 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 Discharge Disposition: Home 10/02/2023 Travel 09/24/2023 7:46 AM CDT - 09/24/2023 11:59 PM CDT Hospital Encounter [facility] [address] [place] [address] Roberto Poole PA Adrenal mass Discharge Disposition: Home 09/20/2023 Orders Only [facility] [address] [place] [address], 7th [place] [address] Roberto Poole PA Adrenal mass (Primary Dx) 09/19/2023 11:45 AM CDT Ancillary Procedure X-Ray Outpatient Center [address] [place] [address], [facility] [place] [address] Shazia Arriaza MD Renal mass 09/19/2023 9:20 AM CDT - 09/19/2023 11:59 PM CDT Hospital Encounter [facility] [address] [place] [address] Shazia Arriaza MD Adenoma, NOS of adrenal gland, NOS <Left> Discharge Disposition: Home 09/19/2023 Orders Only Interventional Radiology [address] [place] [address], 4th [place] [address] Abilio Ng PA-C Renal mass (Primary Dx) 09/19/2023 Travel 09/19/2023 Telephone [facility] [address] [place] [address] Barbara Rees MA 09/16/2023 4:00 PM CDT - 09/16/2023 11:59 PM CDT Hospital Encounter [facility] [address] [place] [address] Shazia Arriaza MD Renal mass; Adrenal mass Discharge Disposition: Home 09/16/2023 2:00 PM CDT Office Visit [facility] [address] [place] [address], 7th [place] [address] Margoth Souza MD Renal mass (Primary Dx); Adrenal mass; Adenoma, NOS of adrenal gland, NOS <Left>; 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 09/16/2023 12:30 PM CDT NPR MDA PATIENT ACCESS 09/16/2023 Travel 08/08/2023 8:00 PM CDT Ancillary Procedure [facility] [address] [place] [address] Margoth Souza MD Cancer 08/08/2023 6:40 AM CDT Ancillary Procedure [facility] [address] [place] [address] Margoth Souza MD Cancer after 07/25/2023 Surgical History Surgery Date Site/Laterality Comments TOE AMPUTATION x2, 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, 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 APPENDECTOMY 05/20/1973 - 05/19/1974 Open WRIST SURGERY Left HAND SURGERY Right HIP ARTHRODESIS W/ ILIAC CRE ST BONE GRAFT Bilateral For hand surgeries CERVICAL SPINE SURGERY C3-6 fusion, x2 UT LAPAROSCOPY SURG PARTIAL NEPHRECTOMY 01/02/2024 Abdomen/Left Procedure: ROBOTIC ASSISTED PARTIAL NEPHRECTOMY; Surgeon: Margoth Souza MD; Location: MAIN OR; Service: UROLOGY UT ULTRASONIC GUIDANCE INTRAOPERATIVE 01/02/2024 Left Procedure: INTROPERATIVE ULTRASOUND - PERFORMED BY SURGEON; Surgeon: Margoth Souza MD; Location: MAIN OR; Service: UROLOGY CORONARY ARTERY BYPASS GRAFT 01/07/2024 UT LAPS ABD PRTM&OMENTUM DX W/WO SPEC BR/WA SPX 04/15/2024 Abdomen/N/A Procedure: ROBOTIC ASSISTED SURGICAL LAPAROSCOPY; Surgeon: John Fong MD; Location: MAIN OR; Service: SURG ONC - GASTRIC/HIPEC Medical devices from this surgery are in the Medical Devices section. UT FLUORO CENTRAL VENOUS ACC ESS DEV PLACEMENT 04/15/2024 Neck/N/A Procedure: FLUORO GUIDANCE FOR CENTRAL VENOUS ACCESS DEVICE PLACEMENT, REPLACEMENT, OR REMOVAL; Surgeon: John Fong MD; Location: MAIN OR; Service: SURG ONC - GASTRIC/HIPEC Medical devices from this surgery are in the Medical Devices section. UT US VASC ACCESS SITS VSL P ATENCY NDL ENTRY 04/15/2024 N/A Procedure: US GUIDANCE WITH EVAL OF POTENTIAL ACCESS SITES, REALTIME US VISUALIZATION OF VASC NEEDLE ENTRY; Surgeon: John Fong MD; Location: MAIN OR; Service: SURG ONC - GASTRIC/HIPEC Medical devices from this surgery are in the Medical Devices section. UT INSJ TUNNELED CTR VAD W/S UBQ PORT AGE 5 YR/> 04/15/2024 Neck/N/A Procedure: PORT-A-CATH PLACEMENT; Surgeon: John Fong MD; Location: MAIN OR; Service: SURG ONC - GASTRIC/HIPEC Medical devices from this surgery are in the Medical Devices section. UT ESOPHAGOGASTRODUODENOSCOP Y US SCOPE W/ADJ STRXRS 05/19/2024 Esophagus/N/A Procedure: UPPER GASTROINTESTINAL ENDOSCOPY OF ESOPHAGUS, STOMACH, OR DUODENUM ANDJ ADJACENT STRUCTURES, WITH ENDOSCOPIC ULTRASOUND EXAMINATION; Surgeon: Brandon Alcala MD; Location: MAIN ENDOSCOPY; Service: GASTROENTEROLOGY UT ESOPHAGOGASTRODUODENOSCOP Y TRANSORAL DIAGNOSTIC 06/30/2024 Esophagus/N/A Procedure: DIAGNOSTIC UPPER GASTROINTESTINAL ENDOSCOPY; Surgeon: Bradnon Alcala MD; Location: MAIN ENDOSCOPY; Service: GASTROENTEROLOGY [...] 12/03/2023-12/06/2023 of note, pt was on [facility] Peripheral vascular disease 2023 Left [...] on file Legal Sex Male 11:38 AM TANK HOUSE SUPERVISOR Gender Identity Not on file Sexual Orientation Not on file Occupation Industry Job Start Date Job End Date retired from [employer] Not on file N ot on file Not on file Travel History Travel Start Travel End [place] 04/12/2024 04/12/2024 Obstetrics History Last Filed Vital Signs Vital Sign Reading Time Taken Comments Blood Pressure 147/83 07/16/2024 2:11 PM TANK HOUSE SUPERVISOR Pulse 78 07/16/2024 2:11 PM TANK HOUSE SUPERVISOR Temperature 36.5 C (97.7 F) 07/16/2024 2:11 PM CS T Respiratory Rate 18 07/16/2024 2:11 PM TANK HOUSE SUPERVISOR Oxygen Saturation 98% 07/16/2024 2:11 PM TANK HOUSE SUPERVISOR Inhaled Oxygen Concentration - - Weight 38.7 kg (85 lb 4.8 oz) 07/16/2024 2:11 PM TANK HOUSE SUPERVISOR Height 188 cm (6' 2") 05/19/2024 11:53 AM TANK HOUSE SUPERVISOR Body Mass Index 10.95 05/19/2024 11:53 AM TANK HOUSE SUPERVISOR Plan of Treatment Upcoming Encounters Date Type Department Care Team (Late st Contact Info) Description 07/24/2024 4:30 PM TANK HOUSE SUPERVISOR Appointment Ambulatory Treatment Center - Main Building [address] [place] [address], 2nd Floor, [place] [address] Marianela Hutchinson MD [address] [place] [phone] [email or web address] 08/06/2024 8:30 AM CDT Appointment Diagnostic [facility] [address] [place] [address], Elevator [place] [phone] Marianela Hutchinson MD [address] [place] [phone] [email or web address] 08/06/2024 9:20 AM CDT Follow-Up Gastrointestinal Center [address] [place] [address], 7th [place] [address] Marianela Hutchinson MD [address] [place] [phone] [email or web address] 08/06/2024 9:45 AM CDT Infusion Ambulatory [facility] - [facility] [address] [place] [address], 8th [place] [address] Marianela Hutchinson MD [address] [place] [address] [email or web address] 08/20/2024 11:30 AM CDT Appointment [facility] [address] [place] [address] Marianela Hutchinson MD [address] [place] [address] [email or web address] 08/20/2024 12:30 PM CDT Infusion Ambulatory [facility] - [address], 8th [place] [address] Marianela Hutchinson MD [address] [place] [address] [email or web address] 09/03/2024 11:30 AM CDT Appointment [facility] [address] [place] [address] Marianela Hutchinson MD [address] [place] [address] [email or web address] 09/03/2024 12:30 PM CDT Infusion Ambulatory [facility] - [address], 8th [place] [address] Marianela Hutchinson MD [address] [place] [phone] [email or web address] 02/01/2025 11:30 AM CDT Appointment [facility] [address] [place] [address] [place] [address] Veronica Del Castillo, CONTROL ROOM SUPERVISOR [address] [place] [address] [email or web address] 02/01/2025 11:45 AM CDT Appointment Main CT IMAGING [address] [facility], 3rd [place] [address] Veronica Del Castillo, CONTROL ROOM SUPERVISOR [address] [place] [address] [email or web address] 02/01/2025 3:00 PM CDT Follow-Up Endocrine Center [address] [facility], 6th [place] [address] Mary Jane Cassidy MD [address] [place] [address] [email or web address] 02/05/2025 10:45 AM CDT Lab [facility] [address] [place] [address], 7th [place] [address] Margoth Souza MD [address] [place] [address] [email or web address] 02/05/2025 11:15 AM CDT Ancillary Procedure X-Ray Outpatient Center [address] [place] [address], 7th [place] [address] Margoth Souza MD [address] [place] [phone] [email or web address] 02/05/2025 11:55 AM CDT Ancillary Procedure CT Imaging [address] [place] [address], 7th [place] [address] Margoth Souza MD [address] [place] [address] [email or web address] 02/08/2025 2:30 PM CDT Telemedicine Genitourinary Cancer Center [address] [facility], 7th [place] [address] Margoth Souza MD [address] [place], [place] [phone] [email or web address] Health [email or web address] Due Date Last Done Comments COVID-19 Vaccine (#1) 01/09/1969 Pneumococcal Vaccine: 50+ Years (1 of 2 - PCV) 983 01/09/1975 Influenza Vaccine (#1) 2024 08/04/2018 Medical Devices Implanted Type Area Mat Roller Device Identifier Shelf Expiration Date Model / Serial / Lot Pwrport, Clearvue Slim 6fr - [id number] Implanted:Qty: 1 on 04/15/2024 by John Fong MD at [facility] Implant Right: Neck [employer] 12/17/2024 [id number] / / [id number] Procedures Procedure Name Priority Date/Time Associated Diagnosis Comments CT CHEST ABDOMEN PELVIS W CONTRAST Routine 07/15/2024 4:38 PM TANK HOUSE SUPERVISOR Adenocarcinoma of stomach .CBC Routine 07/15/2024 10:01 AM TANK HOUSE SUPERVISOR Adenocarcinoma of stomach CARCINOEMBRYONIC ANTIGEN Routine 025 10:01 AM TANK HOUSE SUPERVISOR Adenocarcinoma of stomach LACTATE DEHYDROGENASE Routine 07/15/2024 10:01 AM TANK HOUSE SUPERVISOR Adenocarcinoma of stomach PHOSPHORUS LEVEL Routine 07/15/2024 10:01 AM TANK HOUSE SUPERVISOR Adenocarcinoma of stomach MAGNESIUM LEVEL Routine 07/15/2024 10:01 AM TANK HOUSE SUPERVISOR Adenocarcinoma of stomach COMPREHENSIVE METABOLIC PANEL Routine 10:01 AM TANK HOUSE SUPERVISOR Adenocarcinoma of stomach COMPLETE BLOOD COUNT W/ DIFFERENTIAL Routine 07/15/2024 10:01 AM TANK HOUSE SUPERVISOR Adenocarcinoma of stomach RESEARCH PROTOCOL [id number] Routine 07/15 10:01 AM TANK HOUSE SUPERVISOR Adenocarcinoma of stomach MDA AP IHC WORKUP Routine 07/07/2024 12:29 PM TANK HOUSE SUPERVISOR Adenocarcinoma of stomach POC GLUCOSE SCREEN Routine 06/30/2024 1:23 PM TANK HOUSE SUPERVISOR PATHOLOGY BIOPSY INTERPRETATION Routine 06/30/2024 12:51 PM TANK HOUSE SUPERVISOR Adenocarcinoma of stomach UT ESOPHAGOGASTRODUODENOSCOP Y TRANSORAL DIAGNOSTIC 06/30/2024 12:15 PM TANK HOUSE SUPERVISOR Adenocarcinoma of stomach Case Notes 06/12 per gene to schedule on 06/30, per tor to schedule 06/30 thru lunch last AM case, slot held to offer. BRIENM and sent mychart to schedule-DC Special Needs SKI TOPPERARTURO PEREZ COMPLETE 06/18.SKI TOPPERARTURO HERNANDEZ FOR DAUGHTER WITH DETAILED INSTRUCTIONS FOR PROCEDURE IN ADDITION TO HOLD ON PLAVIX FOR 5 DAYS.SKI TOPPERARTURO HERNANDEZ 1ST CALL 06/16. POC CHEM 8 Routine 06/30/2024 11:10 AM TANK HOUSE SUPERVISOR POC GLUCOSE SCREEN Routine 06/30/2024 10:52 AM TANK HOUSE SUPERVISOR POC CHEM 8 Routine 06/29/2024 9:54 AM TANK HOUSE SUPERVISOR EKG, 12-LEAD (SCHEDULED) Routine 06/29/2024 Adenocarcinoma of stomach PETCT F18 FDG (FLUORODEOXYGLUCOSE) WITH CONTRAST Routine 06/20/2024 12:42 PM TANK HOUSE SUPERVISOR Adenocarcinoma, NOS of stomach, NOS Malignant neoplasm of overlapping sites of esophagus POC GLUCOSE SCREEN Routine 06/20/2024 11:06 AM TANK HOUSE SUPERVISOR .CBC Routine 06/20/2024 10:35 AM TANK HOUSE SUPERVISOR Adenocarcinoma, NOS of stomach, NOS CARCINOEMBRYONIC ANTIGEN Routine 025 10:35 AM TANK HOUSE SUPERVISOR Adenocarcinoma, NOS of stomach, NOS LACTATE DEHYDROGENASE Routine 06/20/2024 10:35 AM TANK HOUSE SUPERVISOR Adenocarcinoma, NOS of stomach, NOS PHOSPHORUS LEVEL Routine 06/20/2024 10:35 AM TANK HOUSE SUPERVISOR Adenocarcinoma, NOS of stomach, NOS MAGNESIUM LEVEL Routine 06/20/2024 10:35 AM TANK HOUSE SUPERVISOR Adenocarcinoma, NOS of stomach, NOS COMPREHENSIVE METABOLIC PANEL Routine 10:35 AM TANK HOUSE SUPERVISOR Adenocarcinoma, NOS of stomach, NOS COMPLETE BLOOD COUNT W/ DIFFERENTIAL Routine 06/20/2024 10:35 AM TANK HOUSE SUPERVISOR Adenocarcinoma, NOS of stomach, NOS .CBC Routine 06/15/2024 10:39 AM TANK HOUSE SUPERVISOR Adenocarcinoma of stomach CARCINOEMBRYONIC ANTIGEN Routine 025 10:39 AM TANK HOUSE SUPERVISOR Adenocarcinoma, NOS of stomach, NOS LACTATE DEHYDROGENASE Routine 06/15/2024 10:39 AM TANK HOUSE SUPERVISOR Adenocarcinoma, NOS of stomach, NOS PHOSPHORUS LEVEL Routine 06/15/2024 10:39 AM TANK HOUSE SUPERVISOR Adenocarcinoma, NOS of stomach, NOS MAGNESIUM LEVEL Routine 06/15/2024 10:39 AM TANK HOUSE SUPERVISOR Adenocarcinoma, NOS of stomach, NOS COMPREHENSIVE METABOLIC PANEL Routine 10:39 AM TANK HOUSE SUPERVISOR Adenocarcinoma of stomach COMPLETE BLOOD COUNT W/ DIFFERENTIAL Routine 06/15/2024 10:39 AM TANK HOUSE SUPERVISOR Adenocarcinoma of stomach .CBC Routine 06/01/2024 11:10 AM TANK HOUSE SUPERVISOR Adenocarcinoma of stomach TRANSFERRIN Routine 06/01/2024 11:10 AM TANK HOUSE SUPERVISOR Iron deficiency anemia, not otherwise specified Adenocarcinoma of stomach FERRITIN Routine 06/01/2024 11:10 AM TANK HOUSE SUPERVISOR Iron deficiency anemia, not otherwise specified Adenocarcinoma of stomach IRON LEVEL Routine 06/01/2024 11:10 AM TANK HOUSE SUPERVISOR Iron deficiency anemia, not otherwise specified Adenocarcinoma of stomach COMPREHENSIVE METABOLIC PANEL Routine 11:10 AM TANK HOUSE SUPERVISOR Adenocarcinoma of stomach COMPLETE BLOOD COUNT W/ DIFFERENTIAL Routine 06/01/2024 11:10 AM TANK HOUSE SUPERVISOR Adenocarcinoma of stomach POC GLUCOSE SCREEN Routine 05/19/2024 1:52 PM TANK HOUSE SUPERVISOR PATHOLOGY BIOPSY INTERPRETATION Routine 05/19/2024 1:10 PM TANK HOUSE SUPERVISOR Adenocarcinoma of stomach UT ESOPHAGOGASTRODUODENOSCOP Y US SCOPE W/ADJ STRXRS 05/19/2024 12:34 PM TANK HOUSE SUPERVISOR Adenocarcinoma of stomach Case Notes 04/24- WAITING FOR TRIAGE TO MO FOR 05/01- Special Needs SKI TOPPER [place] Call Completed 04/30/24ad laproscopy on 04/15/24 POC GLUCOSE SCREEN Routine 05/19/2024 12:21 PM TANK HOUSE SUPERVISOR .CBC Routine 05/18/2024 10:55 AM TANK HOUSE SUPERVISOR Adenocarcinoma, NOS of stomach, NOS CARCINOEMBRYONIC ANTIGEN Routine 024 10:55 AM TANK HOUSE SUPERVISOR Adenocarcinoma, NOS of stomach, NOS LACTATE DEHYDROGENASE Routine 05/18/2024 10:55 AM TANK HOUSE SUPERVISOR Adenocarcinoma, NOS of stomach, NOS PHOSPHORUS LEVEL Routine 05/18/2024 10:55 AM TANK HOUSE SUPERVISOR Adenocarcinoma, NOS of stomach, NOS MAGNESIUM LEVEL Routine 05/18/2024 10:55 AM TANK HOUSE SUPERVISOR Adenocarcinoma, NOS of stomach, NOS COMPREHENSIVE METABOLIC PANEL Routine 10:55 AM TANK HOUSE SUPERVISOR Adenocarcinoma, NOS of stomach, NOS COMPLETE BLOOD COUNT W/ DIFFERENTIAL Routine 05/18/2024 10:55 AM TANK HOUSE SUPERVISOR Adenocarcinoma, NOS of stomach, NOS .CBC Routine 05/04/2024 11:34 AM TANK HOUSE SUPERVISOR Adenocarcinoma, NOS of stomach, NOS RESEARCH PROTOCOL [id number] Routine 05/04 11:34 AM TANK HOUSE SUPERVISOR Adenocarcinoma of stomach CARCINOEMBRYONIC ANTIGEN Routine 024 11:34 AM TANK HOUSE SUPERVISOR Adenocarcinoma, NOS of stomach, NOS LACTATE DEHYDROGENASE Routine 05/04/2024 11:34 AM TANK HOUSE SUPERVISOR Adenocarcinoma, NOS of stomach, NOS PHOSPHORUS LEVEL Routine 05/04/2024 11:34 AM TANK HOUSE SUPERVISOR Adenocarcinoma, NOS of stomach, NOS MAGNESIUM LEVEL Routine 05/04/2024 11:34 AM [employer] Adenocarcinoma, NOS of stomach, NOS COMPREHENSIVE METABOLIC PANEL Routine 11:34 AM [employer] Adenocarcinoma, NOS of stomach, NOS COMPLETE BLOOD COUNT W/ DIFFERENTIAL Routine 05/04/2024 11:34 AM [employer] Adenocarcinoma, NOS of stomach, NOS VERIFY CATHETER TIP PLACEMENT Routine 3:50 PM [employer] HOU[employer] Adenocarcinoma of stomach POC GLUCOSE SCREEN Routine 04/15/2024 3:21 PM [employer] HOUSE SUPERVISOR XR CHEST 1 VW PORTABLE Routine 2:45 PM [employer] POC GLUCOSE SCREEN Routine 04/15/2024 1:05 PM [employer] HOUSE [employer]OR POC GLUCOSE SCREEN Routine 04/15/2024 12:52 PM [employer] HOUSE [employer]PER[employer]OR CYTOLOGY NON-LPN CARE MANAGER INTERPRETATION Routine 04/15/2024 12:33 PM [employer] Adenocarcinoma of stomach PATHOLOGY SURGICAL INTERPRETATION Routine 04/15/2024 12:13 PM [employer] Adenocarcinoma of stomach FL CENTRAL VENOUS PLACE EXCHANGE Routine 04/15/2024 11:40 AM [employer] HOU[employer] Adenocarcinoma of stomach POC GLUCOSE SCREEN Routine 04/15/2024 9:22 AM [employer] HOUSE SUPERVISOR UT INSJ TUNNELED CTR VAD W/SUBQ PORT AGE 5 YR/> 04/15/2024 9:16 AM [employer] Adenocarcinoma of stomach Special Needs MTL@0800 UT US VASC ACCESS SITS VSL PATENCY NDL ENTRY 04/15/2024 9:16 AM [employer] Adenocarcinoma of stomach Special Needs MTL@0800 UT FLUORO CENTRAL VENOUS ACCESS DEV PLACEMENT 04/15/2024 9:16 AM [employer]OR Adenocarcinoma of stomach Special Needs MTL@0800 UT LAPS ABD PRTM&OMENTUM DX W/WO SPEC BR/WA SPX 04/15/2024 9:16 AM [employer] Adenocarcinoma of stomach Special Needs MTL@0800 CT ABDOMEN PELVIS W CONTRAST Routine 11:18 AM [employer] HOUSE [employer]VISOR .CBC Routine 04/12/2024 9:04 AM [employer] HOUSE SUPER[employer]OR LIPASE LEVEL Routine 04/12/2024 9:04 AM [employer] HOUSE [employer]PER[employer]OR AMYLASE LEVEL Routine 04/12/2024 9:04 AM [employer] HOUSE [employer]OR LACTATE DEHYDROGENASE Routine 04/12/2024 9:04 AM [employer] HOUSE SUPER[employer]OR FRACTIONATED BILIRUBIN Routine 9:04 AM [employer] HOUSE [employer]PER[employer]OR PHOSPHORUS LEVEL Routine 04/12/2024 9:04 AM [employer] HOUSE [employer]OR MAGNESIUM LEVEL Routine 04/12/2024 9:04 AM [employer] HOUSE [employer]PER[employer]OR COMPREHENSIVE METABOLIC PANEL Routine 9:04 AM [employer]SE [employer]OR COMPLETE BLOOD COUNT W/ DIFFERENTIAL Routine 04/12/2024 9:04 AM [employer]SE [employer] .CBC Routine 04/09/2024 11:09 AM [employer] Encounter for other preprocedural examination Atherosclerosis of coronary 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, not otherwise specified THYROID STIMULATING HORMONE Routine 03/21 11:09 AM [employer] Encounter for other preprocedural examination Atherosclerosis of coronary 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, not otherwise specified HEMOGLOBIN A1C Routine 04/09/2024 11:09 AM [employer] 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 Encounter for other preprocedural examination COMPREHENSIVE METABOLIC PANEL Routine 11:09 AM [employer] Encounter for other preprocedural examination Atherosclerosis of coronary 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, not otherwise specified COMPLETE BLOOD COUNT W/ DIFFERENTIAL Routine 04/09/2024 11:09 AM [employer] Encounter for other preprocedural examination Atherosclerosis of coronary 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, not otherwise specified EKG, 12-LEAD (SCHEDULED) Routine 04/09/2024 Adenocarcinoma of stomach Hyperlipidemia, not otherwise specified Encounter for other preprocedural examination Atherosclerosis of coronary 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, not otherwise specified PATHOLOGY OUTSIDE INTERPRETATION Routine 04/02/[address] ABDOMEN AND PELVIS Routine 2023 8:21 AM [employer] HOUSE [employer] Cancer OSI CHEST Routine 03/23/2024 7:37 PM [employer]PERVIS[employer] Cancer OSI CT CHEST ABDOMEN PELVIS Routine 08/2023 7:37 PM [employer] HOUSE [employer] Cancer OSI CHEST Routine 03/23/2024 7:37 PM [employer] HOUSE [employer]PERVIS[employer] Cancer OSI CT CHEST Routine 03/22/2024 8:21 AM [employer] HOUSE [employer]PERVIS[employer] Cancer OSI CT ABDOMEN AND PELVIS Routine [...] INTRAOPERATIVE US STAT 01/02/2024 7:13 AM CDT UT ULTRASONIC GUIDANCE INTRAOPERATIVE 01/02/2024 6:08 AM CDT Renal mass Special Needs [email or web address]:Please collect and send tissue to pathology window with appropriate label. UT LAPAROSCOPY SURG PARTIAL NEPHRECTOMY 01/02/2024 6:08 AM CDT Renal mass Special Needs [email or web address]:Please collect and send tissue to pathology window [...] Routine 09/16/2023 4:23 PM CDT Renal mass after 07/25/2023 Results * CT Chest Abdomen Pelvis with Contrast (07/15/2024 4:38 PM [employer]PERVIS[employer]) Anatomical Region Laterality Modality Abdomen, Pelvis, Chest Computed Tomography 07/15/2024 5:39 PM [employer] HOU[employer] Impressions 07/15/2024 9:45 PM [employer]SE [employer] 1. Redemonstration of diffuse wall thickening of [...] and potentially actionable. Narrative 07/15/2024 9:45 PM [employer] HOUSE [employer]PER[employer]OR FULL RESULT: Examination: CT CHEST ABDOMEN PELVIS [...] CT ORDERABLES Final Result * Research Protocol [id number] (07/15/2024 10:01 AM [employer] HOUSE SUPERVISOR) Only the most recent of2 resultswithin the time period is included. [facility] Research Protocol Specimen Specimen Collected, Ready for Pickup. 07/15/2024 12:00 PM [facility] Blood Venipuncture / Unknown 07/15/2024 10:01 AM [facility] 07/15/2024 10:10 AM [facility] us Marianela Hutchinson MD RESEARCH LAB Z CODES Final Re sult [facility] Unless otherwise noted, all lab tests performed by: Division of Pathology and Laboratory Medicine [facility] [place] [address] * (ABNORMAL) .CBC (07/15/2024 10:01 AM [facility]) Only the most recent of11 resultswithin the time period is included. [facility] White Blood Cell 6.7 4.1 - 10.5 K/uL 07/15/2024 10:33 AM [facility] Red Blood Cell 4.91 4.30 - 6.04 M/uL 07/15/2024 10:33 AM [facility] Hemoglobin 12.4(L) 13.3 - 17.4 g/dL 07/15/2024 10:33 AM [facility] Hematocrit 37.8(L) 39.5 - 51.8 % 07/15/2024 10:33 AM [facility] Mean Cell Volume 77(L) 82 - 99 fL 07/15/2024 10:33 AM [facility] Mean Cell Hemoglobin 25.3(L) 26.6 - 33.2 pg 07/15/2024 10:33 AM [facility] Mean Cell Hemoglobin Concentration 32.8 31.1 - 35.2 g/dL 07/15/2024 10:33 AM [facility] RDW-SD 40.9 37.5 - 49.7 fL 07/15/2024 10:33 AM [facility] Red Cell Diameter Width 14.8 11.6 - 15.5 % 07/15/2024 10:33 AM [facility] Platelet 226 160 - 397 K/uL 07/15/2024 10:33 AM [facility] Mean Platelet Volume 9.6 9.1 - 12.6 fL 07/15/2024 10:33 AM [facility] INRBC 0.0 0.0 - 0.1 /100 WBC 07/15/2024 10:33 AM [facility] Comment: The INRBC (instrument NRBC) value reflects the enumeration of nucleated red blood cells contained in a 200uL sample of whole blood analyzed by the instrument. This value may differ from the NRBC value reported in a manual differential, which is based on a 100 cell differential. Neutrophil % 63.5 43.2 - 72.7 % 07/15/2024 10:33 AM [facility] Lymphocyte % 25.4 16.8 - 46.2 % 07/15/2024 10:33 AM [facility] Monocyte % 8.5 5.1 - 12.5 % 07/15/2024 10:33 AM [facility] Eosinophil % 2.1 0.4 - 6.3 % 07/15/2024 10:33 AM [facility] Basophil % 0.4 0.2 - 1.4 % 07/15/2024 10:33 AM [facility] IGRE % 0.1 0.1 - 1.5 % 07/15/2024 10:33 AM [facility] Comment:The IGRE% includes M etamyelocytes, Myelocytes and Promyelocytes. Neutrophil Abs 4.25 1.95 - 7.25 K/uL 07/15/2024 10:33 AM [facility] Lymphocyte Abs 1.70 1.01 - 3.24 K/uL 07/15/2024 10:33 AM [facility] Monocyte Abs 0.57 0.24 - 0.85 K/uL 07/15/2024 10:33 AM [facility] Eosinophil Abs 0.14 0.02 - 0.50 K/uL 07/15/2024 10:33 AM [facility] Basophil Abs 0.03 0.02 - 0.09 K/uL 07/15/2024 10:33 AM [facility] IG Abs 0.01 0.01 - 0.12 K/uL 07/15/2024 10:33 AM [facility] Blood Peripheral blood specimen / Unknown Venipuncture / Unknown 07/15/2024 10:01 AM [employer] 07/15/2024 10:09 AM [facility] Gillian Gomez PA-C LAB BLOOD ORDERABLES Final Result [facility] Unless otherwise noted, all lab tests performed by: Division of Pathology and Laboratory Medicine [address] [place] [phone] * (ABNORMAL) CMP (07/15/2024 10:01 AM [facility]) Only the most recent of10 resultswithin the time period is included. Bilirubin Total 0.4 0.0 - 1.2 mg/dL 07/15/2024 11:15 AM [facility] Comment:Indocyanine Green (I CG) may cause falsely elevated bilirubin results. Total and direct bilirubin must not be measured from samples containing indocyanine green. False elevation of total bilirubin can be seen in patients with IgG concentrations above 28 g/L. eGFR 98 >=60 mL/min/1. 73 sq. m 07/15/2024 11:15 AM [facility] Comment: The eGFRcr is calculated [...] 6.4 - 8.3 gm/dL 07/15/2024 11:15 AM [facility] Calcium Level Total 9.6 8.2 - 10.2 mg/dL 07/15/2024 11:15 AM [facility] Alkaline Phosphatase 117 40 - 129 U/L 07/15/2024 11:15 AM [facility] Albumin Level 4.4 3.5 - 5.2 gm/dL 07/15/2024 11:15 AM [facility] AST 22 <=40 U/L 07/15/2024 11:15 AM [facility] ALT 13 <=41 U/L 07/15/2024 11:15 AM [facility] Sodium Level 138 136 - 145 mmol/L 07/15/2024 11:15 AM [facility] Potassium Level 4.1 3.4 - 4.5 mmol/L 07/15/2024 11:15 AM [facility] Chloride 101 98 - 107 mmol/L 07/15/2024 11:15 AM [facility] CO2 27 22 - 29 mmol/L 07/15/2024 11:15 AM [facility] Anion Gap 10 4 - 14 mmol/L 07/15/2024 11:15 AM [facility] Creatinine 0.90 0.67 - 1.17 mg/dL 07/15/2024 11:15 AM [facility] BUN 10 6 - 23 mg/dL 07/15/2024 11:15 AM [facility] Glucose Level 181(H) 70 - 99 mg/dL 07/15/2024 11:15 AM [facility] Comment: Effective 12/14/15, the glucose reference intervals have been updated based on [place] [employer] guidelines (Standards of Medical Care [...] Unknown Venipuncture / Unknown 07/15/2024 10:01 AM [employer] 07/15/2024 10:09 AM [employer] Gillian Gomez PA-C LAB BLOOD ORDERABLES Final Result [facility] Unless otherwise noted, all lab tests performed by: Division of Pathology and Laboratory Medicine [address] [place] [id number] * Phosphorus Level (07/15/2024 10:01 AM [employer]) Only the most recent of6 resultswithin the time period is included. Phosphorus Level 2.7 2.5 - 4.5 mg/dL 07/15/2024 11:15 AM [employer] [facility] Blood Peripheral blood specimen / Unknown Venipuncture / Unknown 07/15/2024 10:01 AM [employer] 07/15/2024 10:09 AM [employer] Gillian Gomez PA-C LAB BLOOD ORDERABLES Final Result Performing Organization Address [facility] de Phone Number [facility] Unless otherwise noted, all lab tests performed by: Division of Pathology and Laboratory Medicine [address] [place] [phone] * Magnesium Level (07/15/2024 10:01 AM [employer]) Only the most recent of6 resultswithin the time period is included. Magnesium Level 1.8 1.6 - 2.6 mg/dL 07/15/2024 11:15 AM [employer] [facility] Blood Peripheral blood specimen / Unknown Venipuncture / Unknown 07/15/2024 10:01 AM [employer] 07/15/2024 10:09 AM [employer] Gillian Gomez PA-C LAB BLOOD ORDERABLES Final Result Performing Organization Address City/[facility] Co de Phone Number [facility]) Unless otherwise noted, all lab tests performed by: Division of Pathology and Laboratory Medicine [address] [place] [id number] * LDH (07/15/2024 10:01 AM [employer]) Only the most recent of6 resultswithin the time period is included. LDH 202 135 - 225 U/L 07/15/2024 11:15 AM [employer] [facility] Blood Peripheral blood specimen / Unknown Venipuncture / Unknown 07/15/2024 10:01 AM [employer] 07/15/2024 10:09 AM [employer] Narrative [facility]) - 07/15/2024 11:15 AM [facility] Results greater than 1651 U/L may not be reliable due to matrix effect with extended dilution as it exceeds the efficiency miner's recommended limit. Caution should be exercised when interpreting such values and done in conjunction with clinical context. Gillian Gomez PA-C LAB BLOOD ORDERABLES Final Result Performing Organization Address [facility] Co de Phone Number [facility] Unless otherwise noted, all lab tests performed by: Division of Pathology and Laboratory Medicine [address] [place] [id number] * CEA (07/15/2024 10:01 AM [facility]) Only the most recent of5 resultswithin the time period is included. Carcinoembryonic Antigen 3.0 <=3.8 ng/mL 07/15/2024 11:26 AM [facility] Blood Peripheral blood specimen / Unknown Venipuncture / Unknown 07/15/2024 10:01 AM [employer] 07/15/2024 10:09 AM [employer]OR Narrative [facility] - 07/15/2024 11:26 AM [facility] Reference Ranges (age 20-69 years): Non-smoker: <= 3.8 ng/mL Smoker: <= 5.5 ng/mL This test is measured by electrochemiluminescence immunoassay on Cornelius Nikki immunoassay analyzers. Results obtained in different methods are not interchangeable. Gillian Gomez PA-C LAB BLOOD ORDERABLES Final Result Performing Organization Address City/[facility] Co de Phone Number [facility] Unless otherwise noted, all lab tests performed by: Division of Pathology and Laboratory Medicine [address] [place] [address] [place] [address] * IHC Workup (07/07/2024 12:29 PM [employer]) Tissue 07/07/2024 12:2 9 PM [employer] 07/07/2024 12:29 PM [employer] Gillian Gomez PA-C, MDA AP BIOMARKER ORDERABLE S Final Result Performing Organization Address City/[facility]/ZIP Co de Phone Number [facility] [place] [address], * (ABNORMAL) POC Glucose Screen - Fingerstick (06/30/2024 1:23 PM [employer]) Only the most recent of24 resultswithin the time period is included. Glucose Screen 168(H) 70 - 99 mg/dL 06/30/2024 1:25 PM [employer] [facility] POC Sample Type Capillary 06/30/2024 1:25 PM [employer] [facility] Blood 06/30/2024 1:23 PM [employer] 06/30/2024 1:25 PM [employer] Narrative [facility] - 06/30/2024 1:25 PM [employer]OR Capillary blood samples, e.g. obtained by fingerstick, [...] DE VICE Final Result Performing Organization Address City/[facility]/ZIP Co de Phone Number [facility] Unless otherwise noted, all lab tests performed by: Division of Pathology and Laboratory Medicine [address] [place] [phone] * Pathology Biopsy Interpretation (06/30/2024 12:51 PM [employer]) Only the most recent of3 resultswithin the time period is included. Addendum 1 By immunohistochemistry, approximately 10% of the tumor cells show weakly to moderately cytoplasmic staining for claudin 18. By immunohistochemistry the combined positive score (CPS) for PD-L1 is <1. 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 07/10/2024 8:47 AM [facility] Gross Description A: Esophagus, lower esophageal ulcer at 37cm: Multiple soft light castillo tissue fragments, 0.7 x 0.6 x 0.1 cm in aggregate, entirely submitted in A1. ET 07/10/2024 8:47 AM [facility] Biomarker Block(s) Block for biomarker testing: A1 07/10/2024 8:47 AM [facility] Disclaimer "Some tests reported here may have been developed and performance characteristics determined by [facility] Pathology and Laboratory Medicine. These tests have not been specifically cleared or approved by the U.S. Food and Drug Administration. If applicable, controls were reviewed and showed appropriate reactivity." 07/10/2024 8:47 AM [facility] Tissue (Esophagus) 06/30/2024 12:51 PM [employer] 06/30/2024 2:51 PM [employer] us Brandon Galo MD LAB PATHOLOGY ORDERA BLES Edited Result - Final [facility] [place] [address], [place] * (ABNORMAL) POC Chem 8 (06/30/2024 11:10 AM [employer]) Only the most recent of2 resultswithin the time period is included. POC Sodium 136(L) 138 - 146 mmol/L 06/30/2024 11:13 AM [facility] POC Potassium 4.5 3.5 - 4.9 mmol/L 06/30/2024 11:13 AM [facility] POC Chloride 100 98 - 109 mmol/L 06/30/2024 11:13 AM [facility] POC VTCO2 27 24 - 29 mmol/L 06/30/2024 11:13 AM [facility] POC Anion Gap 14 10 - 20 mmol/L 06/30/2024 11:13 AM [facility] POC BUN 30(H) 8 - 26 mg/dL 06/30/2024 11:13 AM [facility] POC Creatinine 1.1 0.6 - 1.3 mg/dL 06/30/2024 11:13 AM [facility] Comment:Medications, especia lly hydroxyurea or supplements, such as ascorbate, can interfere with test results causing a falsely and significantly higher result than expected. If a problem is suspected with a patient's result, a sample should be sent to the laboratory for confirmatory testing. POC I Glu 182(H) 70 - 99 mg/dL 06/30/2024 11:13 AM [facility] Comment:Medications, especia lly hydroxyurea or supplements, such as ascorbate, can interfere with test results causing a falsely and significantly higher result than expected. If a problem is suspected with a patient's result, a sample should be sent to the laboratory for confirmatory testing. POC Ionized Calcium 1.26 1.12 - 1.32 mmol/L 06/30/2024 11:13 AM [facility] POC Hct 39.0 38.0 - 51.0 % 06/30/2024 11:13 AM [facility] POC Hgb 13.3 12.0 - 17.0 gm/dL 06/30/2024 11:13 AM [facility] Comment:Hematocrit values fr om the iSTAT are [...] standard. POC Sample Type Venous 11:13 AM [facility] POC eGFR 77 >=60 mL/min/1.7 3 sq. m 06/30/2024 11:13 AM [facility] Comment: The eGFRcr is calculated with [...] for CKD. Blood 06/30/2024 11:1 0 AM [employer] 06/30/2024 11:13 AM [employer] Narrative [facility] - 06/30/2024 11:13 AM [employer] Method description: The i-STAT is an analyzer [...] POCT ORDERABLES - DE VICE Final Result [facility] Unless otherwise noted, all lab tests performed by: Division of Pathology and Laboratory Medicine [address] [place] [phone] * EKG, 12-Lead (Scheduled) (06/29/2024) Only the most recent of3 resultswithin the time period is included. Mary Kay Santamaria CONTROL ROOM SUPERVISOR ECG ORDERABLES Final R esult STEPH IECG * PETCT F18 FDG (Fluorodeoxyglucose) with contrast (06/20/2024 12:42 PM [employer]) Anatomical Region Laterality Modality Whole Body Positron Emissio n Tomography (PET) 06/20/2024 3:10 PM [employer] Impressions 06/20/2024 4:38 PM [employer] Biopsy-proven malignancy in the region of the [...] and potentially actionable. Narrative 06/20/2024 4:38 PM [employer] FULL RESULT: Examination: 18F-FDG-PET/CT with contrast, 06/20/2024 [...] unexpected and potentially actionable. Gillian Gomez PA-C [facility] PETCT ORDERABLES Final Result * Transferrin with TIBC (06/01/2024 11:10 AM [employer]PER[employer]) Transferrin 211 200 - 360 mg/dL 06/01/2024 12:15 PM [employer]PER[employer] [facility] Total Iron Binding Capacity 295 250 - 450 mcg/dL 06/01/2024 12:15 PM [employer] [facility] Blood Peripheral blood specimen / Unknown Venipuncture / Unknown 06/01/2024 11:10 AM [employer] 06/01/2024 11:23 AM [employer] us Marianela Hutchinson MD LAB BLOOD ORDERABLES Final Re sult Performing Organization Address City/[facility]/ZIP Co de Phone Number [facility] Unless otherwise noted, all lab tests performed by: Division of Pathology and Laboratory Medicine [address] [place] [phone] * (ABNORMAL) Iron Level (06/01/2024 11:10 AM [employer]PER[employer]) Iron Level 38(L) 59 - 158 mcg/dL 06/01/2024 12:15 PM [employer] [facility] Is patient fasting? No 06/01/2024 12:15 PM [employer] HOUSE SUPERVISOR [facility] Blood Peripheral blood specimen / Unknown Venipuncture / Unknown 06/01/2024 11:10 AM [employer]SE [employer]PER[employer]OR 06/01/2024 11:23 AM [employer] us Marianela Hutchinson MD LAB BLOOD ORDERABLES Final Re sult Performing Organization Address [facility] de Phone Number [facility] Unless otherwise noted, all lab tests performed by: Division of Pathology and Laboratory Medicine [address] [place] [address] Unless otherwise noted, all lab tests performed by: Division of Pathology and Laboratory Medicine [address] [place] [phone] * Ferritin Level (06/01/2024 11:10 AM [employer]PER[employer]) Ferritin Level 59 30 - 400 ng/mL 06/01/2024 12:15 PM [employer]SE [employer]PER[employer] [facility] Blood Peripheral blood specimen / Unknown Venipuncture / Unknown 06/01/2024 11:10 AM [employer]SE [employer]PER[employer]OR 06/01/2024 11:23 AM [employer] HOUSE [employer]PER[employer]OR Narrative [facility] - 06/01/2024 12:15 PM [employer]PER[employer] Reference range established for age 20 - 60 years us Marianela Hutchinson MD LAB BLOOD ORDERABLES Final Re sult [facility] Unless otherwise noted, all lab tests performed by: Division of Pathology and Laboratory Medicine [facility] [place] [address] * Tip Verification Central Vascular Access Device (04/15/2024 3:50 PM [employer] HOUSE SUPERVISOR) Narrative John Fong MD - 04/15/2024 3:50 PM [employer]PER[employer]OR John Fong MD 04/15/2024 3:50 PM Central Vascular Access Device Tip Verification Performed by: John Fong MD Authorized by: John Fong MD CVAD Properties Date device placed: 04/15/2024 Device placement location: [facility] Catheter Type: Implanted venous port Catheter lumen: Single lumen Vein location: Internal jugular vein Laterality: Right Tip in good position and cleared for infusion us John Fong MD IV THERAPY ORDERABLES Final Re sult * XR Chest 1 View Portable (04/15/2024 2:45 PM [employer]PER[employer]OR) Anatomical Region Laterality Modality Chest Digital Radiogra phy 04/15/2024 2:50 PM [employer] HOUSE SUPERVISOR Impressions 04/15/2024 2:53 PM [employer] HOU[employer]PERVISOR 1. Right infusion port catheter terminates over [...] and potentially actionable. Narrative 04/15/2024 2:53 PM [employer] HOUSE SUPERVISOR FULL RESULT: Examination: XR CHEST 1 VW [...] IMAGING ORDERAB LES Final Result * Cytology Non-Croze Cutter Helper Interpretation (04/15/2024 12:33 PM [employer] HOU[employer]PERVISOR) Gross Description 4 Pap Stain Slides 750 ml. clear yellow fluid Specimen concentrated by cytocentrifugation technique 4 4:07 PM [employer] HOUSE SUPERVISOR [facility] Major Classification [facility]/benign 4 4:07 PM [employer]PERVISOR [facility] Diagnosis Peritoneal washing: No metastatic carcinoma identified Reactive mesothelial cells and histiocytes 4 4:07 PM T[employer] HOUSE SUPERVISOR [facility] Retained/Biomark er Testing SR:4S 4 4:07 PM [facility] Informational Points Some tests reported here may have been developed and performance characteristics determined by [facility] Pathology and Laboratory Medicine. These tests have not been specifically cleared or approved by the U.S. Food and Drug Administration. 4 4:07 PM [facility] Washing (Peritoneal Washing) 04/15/2024 12:33 PM TANK HOUSE SUPERVISOR 04/15/2024 1:10 PM [employer] HOUSE SUPERVISOR us John Fong MD LAB CYTOLOGY ORDERABLES Final Result Performing Organization Address City/State/[facility] Co de Phone Number [facility] [address] [place] [phone], * Pathology Surgical Interpretation (04/15/2024 12:13 PM [employer] HOUSE SUPERVISOR) Only the most recent of2 resultswithin the time period is included. Submitted Clinical History Adenocarcinoma of stomach [C16.9] 04/20/2024 8:13 PM [facility] Diagnosis A. Falciform ligament, resection: Fibroadipose tissue, no tumor present 04/20/2024 8:13 PM [facility] Gross Description A: Falciform ligament, falciorm ligament biopsy....or 16: Consists of a fragment of castillo-yellow, lobulated fat (0.8 x 0.6 x 0.5 cm) entirely submitted in cassette A1. EF 04/20/2024 8:13 PM [facility] Disclaimer "Some tests reported here may have been developed and performance characteristics determined by [facility] Pathology and Laboratory Medicine. These tests have not been specifically cleared or approved by the U.S. Food and Drug Administration. If applicable, controls were reviewed and showed appropriate reactivity." 04/20/2024 8:13 PM TANK HOUSE SUPERVISOR [facility] Tissue (Falciform Ligament) 04/15/2024 12:13 PM T[employer] HOUSE SUPERVISOR 04/15/2024 1:18 PM TANK HOUSE SUPERVISOR us John Fong MD LAB PATHOLOGY ORDERABLES Final Result [facility] [place] [address] [place] [address], [place] * [place] [facility] Exchange (04/15/2024 11:40 AM T[employer] HOUSE SUPERVISOR) Narrative Systemgenerated, Documentation - 04/15/2024 11:40 AM [employer] HOUSE SUPERVISOR This procedure requires no interpretation from the radiologist. us John Fong MD IMG FLUOROSCOPY ORDERABLES Fin al Result * CT Abdomen Pelvis with IV Contrast (04/12/2024 11:18 AM T[employer] HOUSE SUPERVISOR) Anatomical Region Laterality Modality Abdomen, Pelvis Computed Tomogra phy 04/12/2024 11:5 2 AM T[employer] HOUSE SUPERVISOR Impressions 04/12/2024 12:11 PM [employer] HOUSE SUPERVISOR Wall thickening and slight mucosal irregularity of [...] and potentially actionable. Narrative 04/12/2024 12:11 PM TANK HOUSE SUPERVISOR FULL RESULT: Examination: CT ABDOMEN PELVIS W [...] unexpected and potentially actionable. Nghia Zhu MD IM CT ORDERABLES Final Result * Fractionated Bilirubin (04/12/2024 9:04 AM [facility]) Bilirubin Direct 04/12/20 9:47 AM [facility] Comment: Direct and indirect bilirubin will not be reported when Total bilirubin result is <0.3 mg/dL Indocyanine Green (ICG) may cause falsely elevated bilirubin results. Total and direct bilirubin must not be measured from samples containing indocyanine green. Bilirubin Indirect 2023 9:47 AM [facility] Comment:Direct and indirect bilirubin will not be reported when Total bilirubin result is <0.3 mg/dL Bilirubin Total <0.3 0.0 - 1.2 mg/dL 04/12/2024 9:47 AM [facility] Comment: Direct and indirect bilirubin will [...] Unknown Venipuncture / Unknown 04/12/2024 9:04 AM T[employer] HOUSE SUPERVISOR 04/12/2024 9:08 AM TANK HOUSE SUPERVISOR us Nghia Zhu MD LAB BLOOD ORDERABLES Final Resu lt Performing Organization Address City/[facility]/ZIP Co de Phone Number [facility] Unless otherwise noted, all lab tests performed by: Division of Pathology and Laboratory Medicine [address] [place] [phone] * (ABNORMAL) Lipase (04/12/2024 9:04 AM T[employer] HOUSE SUPERVISOR) Lipase Level 311(H) 13 - 60 U/L 04/12/2024 10:09 AM T[employer] HOUSE SUPERVISOR [facility] Blood Peripheral blood specimen / Unknown Venipuncture / Unknown 04/12/2024 9:04 AM TANK HOUSE SUPERVISOR 04/12/2024 9:08 AM TANK HOUSE SUPERVISOR Narrative [facility] - 04/12/2024 10:09 AM T[employer] HOUSE SUPERVISOR Reference range established based on adult population us Nghia Zhu MD LAB BLOOD ORDERABLES Final Resu lt Performing Organization Address [facility] de Phone Number [facility] Unless otherwise noted, all lab tests performed by: Division of Pathology and Laboratory Medicine [address] [place] [id number] * (ABNORMAL) Amylase (04/12/2024 9:04 AM T[employer] HOUSE SUPERVISOR) Amylase Level 171(H) 28 - 100 U/L 04/12/2024 9:47 AM T[employer] HOUSE SUPERVISOR [facility] Blood Peripheral blood specimen / Unknown Venipuncture / Unknown 04/12/2024 9:04 AM T[employer] HOUSE SUPERVISOR 04/12/2024 9:08 AM TANK HOUSE SUPERVISOR us Nghia Zhu MD LAB BLOOD ORDERABLES Final Resu lt Performing Organization Address City/[facility]/ZIP Co de Phone Number [facility] Unless otherwise noted, all lab tests performed by: Division of Pathology and Laboratory Medicine [address] [place] [address] * TSH (04/09/2024 11:09 AM T[employer] HOUSE SUPERVISOR) Only the most recent of2 resultswithin the time period is included. Thyroid Stimulating Hormone 1.53 0.27 - 4.20 mcunit/mL 04/09/2024 12:23 PM TANK HOUSE SUPERVISOR [facility] Blood Peripheral blood specimen / Unknown Venipuncture / Unknown 04/09/2024 11:09 AM TANK HOUSE SUPERVISOR 04/09/2024 11:19 AM TANK HOUSE SUPERVISOR us Ceci Nicholson MD LAB BLOOD ORDERABLES Final Resu lt [facility] Unless otherwise noted, all lab tests performed by: Division of Pathology and Laboratory Medicine [address] [place] [id number] * (ABNORMAL) Hemoglobin A1c (04/09/2024 11:09 AM TANK HOUSE SUPERVISOR) Only the most recent of3 resultswithin the time period is included. Hemoglobin A1c 7.0(H) 4.3 - 5.6 % 04/09/2024 12:14 PM TANK HOUSE SUPERVISOR [facility] Blood Peripheral blood specimen / Unknown Venipuncture / Unknown 04/09/2024 11:09 AM TANK HOUSE SUPERVISOR 04/09/2024 11:19 AM TANK HOUSE SUPERVISOR Narrative [facility] - 04/09/2024 12:14 PM [employer] HOUSE SUPERVISOR HbA1c values >=6.5% are diagnostic of diabetes mellitus. Diagnosis should be confirmed by repeat testing. Therapeutic Action suggested: >8.0% HbA1c; Goal of therapy: <7.0% HbA1c us Ceci Nicholson MD LAB BLOOD ORDERABLES Final Resu lt [facility] Unless otherwise noted, all lab tests performed by: Division of Pathology and Laboratory Medicine [address] [place] [address] * Pathology Outside Interpretation (04/02/2024) Materials Received Accession#, Stained, Block, Unstained Collected Received A. [id number], 20 SS, 0 BLOCKS, 0 USS 04/02/2024 04/22/2024 04/22/2024 5:36 PM [employer] Diagnosis Outside ([id number], 20 SS, 0 BLOCKS, 0 USS, collected [...] ADENOCARCINOMA WITH SIGNET CELL FEATURES. See comment. /04/22/2024 5:36 PM [employer] Comment Part A. There is no evidence of malignancy on H&E and immunohistochemical stain for Cytokeratin AE1/AE3. Of note, the biopsy may not be automotive leasing sales representative of the entire lesion. Please [...] immunohistochemistry: Negative (Score: 0) 04/22/2024 5:36 PM [employer] Biomarker Block(s) Block for biomarker testing: C1 Normal block: N/A 04/22/2024 5:36 PM [employer] Disclaimer "Some tests reported here may have been developed and performance characteristics determined by [facility] Pathology and Laboratory Medicine. These tests have not been specifically cleared or approved by the U.S. Food and Drug Administration. If applicable, controls were reviewed and showed appropriate reactivity." 04/22/2024 5:36 PM TANK HOUSE SUPERVISOR [facility] Tissue 04/02/2024 04/22/2024 6:4 0 AM TANK HOUSE SUPERVISOR Sybil Edmonds MD LAB PATHOLOGY ORDERABLES Final R esult [facility] [address] [place] [address], [place] * OSI CT Abdomen and Pelvis (04/01/2024 8:21 AM TANK HOUSE SUPERVISOR) Only the most recent of2 resultswithin the time period is included. Narrative Systemgenerated, Documentation - 04/27/2024 8:22 AM TANK HOUSE SUPERVISOR Study acquired at another institution. For comparison only. No MD Gimenez originated interpretation requested or available. [facility] Regan Zhu DO IMG OUTSIDE IMAGE ORDERAB LES Final Result * OSI CT CHEST ABDOMEN PELVIS (03/23/2024 7:37 PM TANK HOUSE SUPERVISOR) Narrative Systemgenerated, Documentation - 04/09/2024 7:37 PM TANK HOUSE SUPERVISOR Study acquired at another institution. For comparison only. No MD Pernell originated interpretation requested or available. Margoth Souza MD IMG OUTSIDE IMAGE ORDERABLES Fin al Result * OSI Chest (03/23/2024 7:37 PM TANK HOUSE SUPERVISOR) Only the most recent of4 resultswithin the time period is included. Narrative Systemgenerated, Documentation - 04/09/2024 7:37 PM TANK HOUSE SUPERVISOR Study acquired at another institution. For comparison only. No MD Pernell originated interpretation requested or available. us Margoth YOUNG OUTSIDE IMAGE ORDERABLES Fin al Result * OSI CT Chest (03/22/2024 8:21 AM TANK HOUSE SUPERVISOR) Narrative Systemgenerated, Documentation - 04/27/2024 8:21 AM TANK HOUSE SUPERVISOR Study acquired at another institution. For comparison only. No MD Pernell originated interpretation requested or available. [facility] Regan Zhu DO IMG OUTSIDE IMAGE ORDERAB LES Final Result * (ABNORMAL) Basic Metabolic Panel- Total Calcium (01/03/2024 2:59 PM CDT) Only the most recent of7 resultswithin the time period is included. eGFR 71 >=60 mL/min/1. 73 sq. m 01/03/2024 3:44 PM CDT [facility] Comment: The eGFRcr is calculated with [...] mg/dL 01/03/2024 3:44 PM CDT [facility] Sodium Level 139 136 - 145 mmol/L 01/03/2024 3:44 PM CDT [facility] Potassium Level 3.9 3.4 - 4.5 mmol/L 01/03/2024 3:44 PM CDT [facility] Chloride 103 98 - 107 mmol/L 01/03/2024 3:44 PM CDT [facility] CO2 28 22 - 29 mmol/L 01/03/2024 3:44 PM CDT [facility] Anion Gap 8 4 - 14 mmol/L 01/03/2024 3:44 PM CDT [facility] Creatinine 1.18(H) 0.67 - 1.17 mg/dL 01/03/2024 3:44 PM CDT [facility] BUN 15 6 - 23 mg/dL 01/03/2024 3:44 PM CDT [facility] Glucose Level 137(H) 70 - 99 mg/dL 01/03/2024 3:44 PM CDT [facility] Comment: Effective 12/14/15, the glucose reference intervals have been updated based on [place] [employer] guidelines (Standards of Medical Care [...] LAB BLOOD ORDERABLES Final Result [facility] Unless otherwise noted, all lab tests performed by: Division of Pathology and Laboratory Medicine [address] [place] [address] * Zinc Transporter 8 Ab (01/03/2024 4:22 AM CDT) Zinc T8 AB <15.0 <15.0 U/mL 01/15/2024 11:18 AM CDT [facility] Comment: ADDITIONAL INFORMATION This test has been modified from the efficiency miner's instructions. Its performance characteristics were determined by [facility] in a manner consistent with CLIA requirements. This test has not been cleared or approved by the U.S. Food and Drug Administration. Test Performed by: [address] [address] Investment Analyst: Mary Jane Topete Ph.D.; CLIA# [id number] Blood Peripheral blood specimen / Unknown Venipuncture / Unknown 01/03/2024 4:22 AM CDT 01/03/2024 4:55 AM CDT Alicia Sohail Mcmanusemily MARIE LAB BLOOD ORDERABLES Final Result Performing Organization Address [facility] Co de Phone Number [facility]UNITED [facility] * Islet Antigen 2 (IA-2) Antibody (01/03/2024 4:22 AM CDT) IA-2 Antibody 0.00 <=0.02 nmol/L 01/07/2024 12:20 AM CDT [facility] Comment: ADDITIONAL INFORMATION This test was developed and its performance characteristics determined by [facility] in a manner consistent with CLIA requirements. This test has not been cleared or approved by the U.S. Food and Drug Administration. Test Performed by: [facility] [place] [address] Investment Analyst: Mary Jane Topete Ph.D.; CLIA# [id number] Blood Peripheral blood specimen / Unknown Venipuncture / Unknown 01/03/2024 4:22 AM CDT 01/03/2024 4:55 AM CDT Alicia Mcmanus APRN LAB BLOOD ORDERABLES Final Result Performing Organization Address [facility] de Phone Number [facility] * GREG Ab Assay (01/03/2024 4:22 AM CDT) [id number] 0.00 <=0.02 nmol/L 01/07/2024 12:01 AM CDT [facility] Comment: ADDITIONAL INFORMATION This test was developed and its performance characteristics determined by [facility] in a manner consistent with CLIA requirements. This test has not been cleared or approved by the U.S. Food and Drug Administration. Test Performed by: [address] [address] Investment Analyst: Mary Jane Topete Ph.D.; CLIA# [id number] Blood Peripheral blood specimen / Unknown Venipuncture / Unknown 01/03/2024 4:22 AM CDT 01/03/2024 4:55 AM CDT Alicia Mcmanus APRN LAB BLOOD ORDERABLES Final Result [facility] * Insulin Ab (01/03/2024 4:22 AM CDT) [facility] 0.00 0.00 - 0.02 nmol/L 01/06/2024 5:14 PM CDT [facility] Comment: ADDITIONAL INFORMATION This test was developed and its performance characteristics determined by [facility] in a manner consistent with CLIA requirements. This test has not been cleared or approved by the U.S. Food and Drug Administration. Test Performed by: [address] [address] Investment Analyst: Mary Jane Topete Ph.D.; CLIA# [id number] Blood Peripheral blood specimen / Unknown Venipuncture / Unknown 01/03/2024 4:22 AM CDT 01/03/2024 4:55 AM CDT Alicia Mcmanus APRN LAB BLOOD ORDERABLES Final Result Performing Organization Address City/[facility]/ZIP Co de Phone Number [facility] * C Peptide (01/03/2024 4:22 AM CDT) [facility] C-Peptide 2.12 1.10 - 4.40 ng/mL 01/03/2024 5:48 AM CDT [facility] Blood Peripheral blood specimen / Unknown Venipuncture / Unknown 01/03/2024 4:22 AM CDT 01/03/2024 4:55 AM CDT us Alicia Sohail Mcmanus CONTROL ROOM SUPERVISOR LAB BLOOD ORDERABLES Final Result [facility] Unless otherwise noted, all lab tests performed by: Division of Pathology and Laboratory Medicine [address] [place] [address] * (ABNORMAL) Hemogram (01/02/2024 7:20 PM CDT) White Blood Cell 13.8(H) 4.1 - 10.5 K/uL 01/02/2024 7:33 PM CDT [facility] Red Blood Cell 4.74 4.30 - 6.04 M/uL 01/02/2024 7:33 PM CDT [facility] Hemoglobin 12.2(L) 13.3 - 17.4 g/dL 01/02/2024 7:33 PM CDT [facility] Hematocrit 38.6(L) 39.5 - 51.8 % 01/02/2024 7:33 PM CDT [facility] Mean Cell Volume 81(L) 82 - 99 fL 01/02/2024 7:33 PM CDT [facility] Mean Cell Hemoglobin 25.7(L) 26.6 - 33.2 pg 01/02/2024 7:33 PM CDT [facility] Mean Cell Hemoglobin Concentration 31.6 31.1 - 35.2 g/dL 01/02/2024 7:33 PM CDT [facility] RDW-SD 39.1 37.5 - 49.7 fL 01/02/2024 7:33 PM CDT [facility] Red Cell Diameter Width 13.1 11.6 - 15.5 % 01/02/2024 7:33 PM CDT [facility] Platelet 291 160 - 397 K/uL 01/02/2024 7:33 PM CDT [facility] Mean Platelet Volume 9.7 9.1 - 12.6 fL 01/02/2024 7:33 PM CDT [facility] INRBC 0.0 0.0 - 0.1 /100 WBC 01/02/2024 7:33 PM CDT [facility] Comment: The INRBC (instrument NRBC) value [...] BLOOD ORDERABLES Final R esult [facility] Unless otherwise noted, all lab tests performed by: Division of Pathology and Laboratory Medicine [address] [place] [address] * (ABNORMAL) Beta Hydroxy Quant (01/02/2024 7:20 PM CDT) Only the most recent of2 resultswithin the time period is included. Beta-Hydroxybuty rate 0.85(H) 0.02 - 0.27 mmol/L 01/02/2024 8:01 PM CDT [facility] Is patient fasting? No 01/02/2024 8:01 PM CDT [facility] Comment:A fasting specimen i s recommended and results obtained from non-fasting specimens should be interpreted with caution using reference ranges based on fasting status and in conjunction with clinical context. Blood Peripheral blood specimen / Unknown Venipuncture / Unknown 01/02/2024 7:20 PM CDT 01/02/2024 7:24 PM CDT Narrative [facility] - 01/02/2024 8:01 PM CDT Reference range based on fasting. us Alicia Mcmanus APRN LAB BLOOD ORDERABLES Final Result [facility] Unless otherwise noted, all lab tests performed by: Division of Pathology and Laboratory Medicine [address] [place] [id number] * (ABNORMAL) ABG+ (ABG, Na, K, Cl, Glu, Hgb, Hct, Lactate, Ion Ca) (01/02/2024 10:38 AM CDT) Only the most recent of2 resultswithin the time period is included. Sodium Arterial 140 136 - 146 mmol/L 01/02/2024 10:44 AM CDT [facility] Potassium Arterial 3.7 3.4 - 4.5 mmol/L 01/02/2024 10:44 AM CDT [facility] Chloride Arterial 103 98 - 106 mmol/L 01/02/2024 10:44 AM CDT [facility] Glucose Arterial 270(H) 70 - 105 mg/dL 01/02/2024 10:44 AM CDT [facility] Hgb Art 12.9(L) 13.5 - 17.5 g/dL 01/02/2024 10:44 AM T [facility] Hematocrit Arterial 40(L) 42 - 52 % 01/02/2024 10:44 AM CDT [facility] Lactate Arterial 1.0(H) 0.4 - 0.8 mmol/L 01/02/2024 10:44 AM CDT [facility] Calcium Ionized Arterial 1.14(L) 1.15 - 1.29 mmol/L 01/02/2024 10:44 AM T [facility] pH Arterial 7.35 7.35 - 7.45 01/02/2024 10:44 AM CDT [facility] P CO2 Arterial 42.9 35.0 - 48.0 mmHg 01/02/2024 10:44 AM T [facility] P O2 Arterial 164(H) 83 - 108 mmHg 01/02/2024 10:44 AM T [facility] Bicarbonate Arterial 24 21 - 28 mmol/L 01/02/2024 10:44 AM T [facility] WB Anion Gap 13 7 - 16 mmol/L 01/02/2024 10:44 AM T [facility] Base Excess Arterial -2 -2 - 3 mmol/L 01/02/2024 10:44 AM T [facility] Oxygen Saturation Arterial 99 95 - 99 % 01/02/2024 10:44 AM CDT [facility] Oxygen FLOW Rate/ FiO2 01/02/2024 10:44 AM CDT [facility] O2 Therapy 01/02/2024 10:44 AM CDT [facility] Art Kirill Test Not Applicable (Arterial Line Draw) 01/02/2024 10:44 AM CDT [facility] Blood Arterial blood specimen / Unknown Arterial Line / Unknown 01/02/2024 10:38 AM CDT 01/02/2024 10:41 AM CDT Narrative [facility] - 01/02/2024 10:44 AM CDT The [...] BLOOD ORDERABLES Final Re sult [facility] Unless otherwise noted, all lab tests performed by: Division of Pathology and Laboratory Medicine [address] [place] [address] [place] [address] * Intraoperative Ultrasound - For Image Storage [...] 01/22/2024 12/23/2023 2:19 PM CDT [facility] Blood Peripheral blood specimen / Unknown Venipuncture / Unknown 12/23/2023 8:51 AM CDT 12/23/2023 9:00 AM CDT us Margoth Souza MD BLOOD BANK TEST ORDERABLES Final Result [facility] [address] [place] [address] [id number] [place] [address] * Preop Updated Expiration (12/23/2023 8:51 AM CDT) PREOP STATUS 01/02/2024 11:33 PM CDT [facility] PREOP EXP DATE 01/02/2024 01/02/2024 11:33 PM CDT [facility] Blood Peripheral blood specimen / Unknown Venipuncture / Unknown 12/23/2023 8:51 AM CDT 12/23/2023 9:00 AM CDT us Margoth Souza MD BLOOD BANK TEST ORDERABLES Final Result [facility] [id number] [place] [address] * (ABNORMAL) Urinalysis with Reflex Culture (12/23/2023 8:51 AM CDT) Only the most recent of2 resultswithin the time period is included. Urine Appearance Clear Clear 12/23/19 9:33 AM CDT [facility] Urine Color Straw Colorless, Straw, Yellow, Dark Yellow, Straw-Yellow 12/23/2023 9:33 AM CDT [facility] Urine Specific [place] 1.032 1.003 - 1.035 12/23/2023 9:33 AM CDT [facility] Urine pH 6.0 5.0 - 8.0 12/23/2023 9:33 AM CDT [facility] Urine Glucose >=1000(A) Negative mg/dL 12/23/2023 9:33 AM CDT [facility] Urine Ketones Negative Negative mg/dL 12/23/2023 9:33 AM CDT [facility] Urine Blood Negative Negative 12/23/2023 9:33 AM CDT [facility] Urine Protein 30(A) Negative mg/dL 12/23/2023 9:33 AM CDT [facility] Urine Bilirubin Negative Negative 9:33 AM CDT [facility] Urine Urobilinogen Negative Negative 12/23/2023 9:33 AM CDT [facility] Urine Nitrite Negative Negative 12/23/2023 9:33 AM CDT [facility] Urine Leukocyte Esterase Negative Negative 12/23/2023 9:33 AM CDT [facility] Urine Mucous Not Seen Not Seen, Trace /HPF 12/23/2023 9:33 AM CDT [facility] Urine Bacteria Not Seen Not Seen /HPF 12/23/2023 9:33 AM CDT [facility] [facility] Urine Squamous Epithelial Cells OCC Not Seen, OCC, Rare /HPF 12/23/2023 9:33 AM CDT [facility] Urine WBC <1 <=2 /HPF 12/23/2023 9:33 AM CDT [facility] Urine RBC 1 <=2 /HPF 12/23/2023 9:33 AM CDT [facility] Urine Voided urine specimen / Unknown Non-blood Collection / Unknown 12/23/2023 8:51 AM CDT 12/23/2023 9:10 AM CDT Narrative [facility] - 12/23/2023 9:33 AM CDT Some reporting parameters within the Urinalysis test have changed due to the implementation of new instrumentation in the Main [place], allowing greater sensitivity of measurement. Urinalysis results reported by the [facility] using existing instrumentation, as well as Urinalysis testing performed manually or by back-up methodology at the main [place], will remain relatively unchanged. New reporting parameters and units will now be reported for all campuses. us Margoth Souza MD URINE ORDERABLES Final Result [facility] Unless otherwise noted, all lab tests performed by: Division of Pathology and Laboratory Medicine [address] [place] [id number] * 30-Day Pre-Op Type and Screen (12/23/2023 8:51 AM CDT) Only the most recent of2 resultswithin the time period is included. ABORh O POS 12/23/2023 8:45 AM CDT [facility] ABSC Negative 12/23/2023 8:45 AM CDT [facility] BB Criteria Met Criteria met 12/23/2023 8:45 AM CDT [facility] Historical Record Check Complete 12/23/2023 8:45 AM CDT [facility] Blood Peripheral blood specimen / Unknown Venipuncture / Unknown 12/23/2023 8:51 AM CDT 12/23/2023 9:00 AM CDT Margoth Souza MD BLOOD BANK TEST ORDERABLES Final Result [facility] [address] [place] [address] [address] [place] [address] * TMP Interpretation Exception PreOp Expiration (12/23/2023 8:51 AM CDT) Only the most recent of2 resultswithin the time period is included. TMP Exception 12/24/2023 10:47 AM CDT [facility] TMP Signature . 12/24/2023 10:47 AM CDT [facility] Blood Peripheral blood specimen / Unknown Venipuncture / Unknown 12/23/2023 8:51 AM CDT 12/23/2023 9:00 AM CDT us Margoth Souza MD BLOOD BANK TEST ORDERABLES Final Result [facility] [address] [place] [address] * ACTH (12/09/2023 9:45 AM CDT) Only the most recent of2 resultswithin the time period is included. ACTH 22 7 - 63 pg/mL 12/09/2023 12:19 PM CDT [facility] Blood Peripheral blood specimen / Unknown Venipuncture / Unknown 12/09/2023 9:45 AM CDT 12/09/2023 9:52 AM CDT Narrative [facility] - 12/09/2023 12:19 PM CDT Reference range established based on adult population (7 - 10am draws). No established reference values for p.m. draws. Results greater than 1826 pg/mL may not be reliable due to matrix effect with extended dilution as it exceeds the efficiency miner's recommended limit. ACTH reference intervals are established for the morning hours from 7-10 am. Due to the circadian rhythm of ACTH levels in plasma, the sample collection time must be noted. Caution should be exercised when interpreting such values and done in conjunction with clinical context. us Veronica Del Castillo APRN LAB BLOOD ORDERABLES Final Result [facility] Unless otherwise noted, all lab tests performed by: Division of Pathology and Laboratory Medicine [address] [place] [id number] * DHEA Sulfate (12/09/2023 9:45 AM CDT) Pathologist [facility] DHEAS-Upperco 81 20 - 299 mcg/dL 12/10/2023 12:10 PM CDT [facility] Comment: Test Performed by: [facility] [address] [place] [address] Investment Analyst: Mary Jane Topete Ph.D.; CLIA# [id number] Blood Peripheral blood specimen / Unknown Venipuncture / Unknown 12/09/2023 9:45 AM CDT 12/09/2023 9:56 AM CDT Leah-Zora Del Castillo APRN LAB BLOOD ORDERABLES Final Result [facility] * Cortisol, Total (12/09/2023 9:45 AM CDT) Only the most recent of4 resultswithin the time period is included. Pathologist [facility] Cortisol 11.39 4.82 - 19.50 mcg/dL 12/09/2023 11:00 AM CDT [facility] Blood Peripheral blood specimen / Unknown Venipuncture / Unknown 12/09/2023 9:45 AM CDT 12/09/2023 9:55 AM CDT Narrative [facility] - 12/09/2023 11:00 AM CDT Cortisol reference [...] Afternoon (4-8 pm): 2.47 - 11.9 mcg/dL Uleun You-Evonne CONTROL ROOM SUPERVISOR LAB BLOOD ORDERABLES Final Result [facility] Unless otherwise noted, all lab tests performed by: Division of Pathology and Laboratory Medicine [facility] [place] [address] * IR CT GUIDED BIOPSY RENAL (10/03/2023 10:27 AM CDT) Anatomical Region Laterality Modality Abdomen/Pelvis, Organ (liver/spleen/kidney) Computed Tomography Narrative 10/04/2023 9:03 AM CDT Table formatting from the original result was not included. Date of Procedure: 10/03/23 Attending Physician: Kumar Comer MD Hog Scalder: None Pre Procedure Diagnosis: Renal mass Post [...] - 14.5 second(s) 10/03/2023 9:57 AM CDT [facility] International Normalization Ratio 0.98 0.87 - 1.12 10/03/2023 9:57 AM CDT [facility] Blood Peripheral blood specimen / Unknown Venipuncture / Unknown 10/03/2023 9:27 AM CDT 10/03/2023 9:28 AM CDT us Conrado-Dannielle Horn Ho PA-C LAB BLOOD ORDERABLES Final Result [facility] [address] [place] [address] * Type and Screen (10/03/2023 9:27 AM CDT) ABORh O POS 10/03/2023 9:17 AM CDT [facility] ABSC Negative 10/03/2023 9:17 AM CDT [facility] Clot Expiration 10/06/2023 23:59 10/03/2023 9:17 AM CDT [facility] Historical Record Check Complete 10/03/2023 9:17 AM CDT [facility] Blood Peripheral blood specimen / Unknown Venipuncture / Unknown 10/03/2023 9:27 AM CDT 10/03/2023 9:52 AM CDT us Conrado-Dannielle Horn Ho PA-C BLOOD BANK TEST ORDERABLES Final Result [facility] [address] [place] [address] * X-ray Chest 2 Views (09/19/2023 9:24 [...] potentially actionable. Shazia Arriaza MD IMG DIAGNOSTIC IMAGING ORD ERABLES Final Result * Metanephrines Fractionated (09/16/2023 4:24 PM CDT) [facility] Normetane Free-Maxwell 0.43 <0.90 nmol/L 09/19/2023 2:59 PM CDT [facility] Metanephr Free-Maxwell <0.20 <0.50 nmol/L 09/19/2023 2:59 PM CDT [facility] Comment: ADDITIONAL INFORMATION This test was developed and its performance characteristics determined by [facility] in a manner consistent with CLIA requirements. This test has not been cleared or approved by the U.S. Food and Drug Administration. Test Performed by: [facility] [place] [address] Investment Analyst: Scot Skelton M.D. Ph.D.; CLIA# [id number] Blood Peripheral blood specimen / Unknown Venipuncture / Unknown 09/16/2023 4:24 PM CDT 09/16/2023 4:41 PM CDT Shazia Arriaza MD LAB BLOOD ORDERABLES Final Result [facility] TIFF * Hepatitis C Virus Antibody (09/16/2023 4:24 PM CDT) [facility] HCVAb. Non Reactive Non Reactive 09/17/2023 9:11 AM CDT [facility] Blood Peripheral blood specimen / Unknown Venipuncture / Unknown 09/16/2023 4:24 PM CDT 09/16/2023 4:41 PM CDT Narrative [facility] - 09/17/2023 9:11 AM CDT Antibody detection in the immunocompromised and immunosuppressed population may be delayed or absent entirely. Therefore serial testing, correlation with other clinical findings, and supplemental testing (if available) should be taken into consideration when interpreting the results. Shazia Arriaza MD LAB BLOOD ORDERABLES Final Result [facility] Unless otherwise noted, all lab tests performed by: Division of Pathology and Laboratory Medicine [address] [place] [id number] * Aldosterone Level (09/16/2023 4:24 PM CDT) Pathologist [facility] 8.1 <=21 ng/dL 09/20/2023 1:02 AM CDT [facility] Comment: ADDITIONAL INFORMATION Reference range for patients 11 years and older is based on upright A.M. collection from subjects without sodium restrictions. This test was developed and its performance characteristics determined by [facility] in a manner consistent with CLIA requirements. This test has not been cleared or approved by the U.S. Food and Drug Administration. Test Performed by: [facility] [place] [address] Investment Analyst: Scot Skelton M.D. Ph.D.; CLIA# [id number] Blood Peripheral blood specimen / Unknown Venipuncture / Unknown 09/16/2023 4:24 PM CDT 09/16/2023 4:41 PM CDT Shazia Arriaza MD LAB BLOOD ORDERABLES Final Result Performing Organization Address City/[facility] Co de Phone Number [facility] TIFF * Renin Activity (09/16/2023 4:24 PM CDT) [facility] Renin Activity-Upperco 4.3 ng/mL/h 09/19 3:42 PM CDT [facility] TIFF Comment: REFERENCE VALUE (Peripheral vein specimen) Na-deplete, upright: Mean: 5.9 Range: 2.9-10.8 Na-replete, upright: Mean: 1.0 Range: < or =0.6-3.0 ADDITIONAL INFORMATION Testing performed by Liquid Chromatography-Tandem Mass Spectrometry (LC-MS/MS). This test was developed and its performance characteristics determined by [facility] in a manner consistent with CLIA requirements. This test has not been cleared or approved by the U.S. Food and Drug Administration. Test Performed by: [facility] [address] [place] [address] Investment Analyst: Scot Skelton M.D. Ph.D.; CLIA# [id number] Blood Peripheral blood specimen / Unknown Venipuncture / Unknown 09/16/2023 4:24 PM CDT 09/16/2023 4:41 PM CDT Shazia Arriaza MD LAB BLOOD ORDERABLES Final Result [facility] * Urine Culture (09/16/2023 4:24 PM CDT) [facility] Urine Culture Normal site mirna present. Generally of low significance. Correlate with clinical data and culture history. 09/18/2023 8:31 AM CDT [facility] Urine Voided urine specimen / Unknown Non-blood Collection / Unknown 09/16/2023 4:24 PM CDT 09/16/2023 4:41 PM CDT us Shazia Arriaza MD MICROBIOLOGY - GENERAL ORD ERABLES Final Result [facility] Unless otherwise noted, all lab tests performed by: Division of Pathology and Laboratory Medicine [address] [place] [address] * T4 (09/16/2023 4:24 PM CDT) [facility] Thyroxine 7.0 4.5 - 11.7 mcg/dL 09/16/2023 5:55 PM CDT [facility] Blood Peripheral blood specimen / Unknown Venipuncture / Unknown 09/16/2023 4:24 PM CDT 09/16/2023 4:41 PM CDT Shazia Arriaza MD LAB BLOOD ORDERABLES Final Result [facility] Unless otherwise noted, all lab tests performed by: Division of Pathology and Laboratory Medicine [address] [place] [phone] * Confirm ABORh (09/16/2023 4:23 PM CDT) ABORh Confirm O POS 09/16/2023 4:15 PM CDT [facility] Blood Peripheral blood specimen / Unknown Venipuncture / Unknown 09/16/2023 4:23 PM CDT 09/16/2023 4:41 PM CDT Shazia Arriaza MD BLOOD BANK TEST ORDERABLES Final Result Performing Organization Address City/[facility]/ZIP Co de Phone Number [facility] [address] [place] [address] [address] [place] [address] after 07/25/2023 Insurance MEDICARE PART A AND B MEDICARE PART A AND B Advance Directives * Full Code (Latest Code Status on File) Date Activated Date Inactivated Comments 04/12/2024 1:24 PM 04/12/2024 5:43 PM * Full Code Date Activated Date Inactivated Comments 01/02/2024 1:48 PM 01/03/2024 7:17 PM Care Teams Vp Of Digital Marketing Relationship Specialty Start Date End Date Margoth Souza MD [address] [place] [id number] [email or web address] PCP - General Urology 07/30/23 04/14/24 Eagle Zhu DO [address] [place] [phone] [email or web address] PCP - External Primary Care Provider Family Practice 04/08/24 Marianela Hutchinson MD [address] [place] [phone] [email or web address] PCP - General Gastrointestinal Medical Oncology 05/04/24 Mary Jane Cassidy MD [address] [place] [phone] [email or web address] Consulting Physician Endocrinology 12/09/23 Barry He MD [address] [place] [phone] [email or web address] Consulting Physician Internal Medicine 12/23/23 Patience Hunt MD [address] [place] [phone] [email or web address] Consulting Physician Endocrinology 12/31/23 Marianela Hutchinson MD [address] [place] [phone] [email or web address] Consulting Physician Gastrointestinal Medical Oncology 04/13/24 Margoth Souza MD [address] [place] [phone] [email or web address] Consulting Physician Urology 04/15/24 Ceci Nicholson MD [address] [place] [phone] [email or web address] Consulting Physician Internal Medicine 04/09/24 Sigifredo Davenport MD [address] [place] [phone] [email or web address] Consulting Physician Internal Medicine 06/29/24
[2024-07-24] MEDS ORDERED: ONDANSETRON 4 MG/2 ML VIAL ONE ×2 (05:52→12:42)
[2024-07-24] MEDS ORDERED: NA CHLORIDE 0.9% 1,000 ML ONE (05:52)
[2024-07-24] MEDS ORDERED: METOCLOPRAMIDE 10 MG/2mL INJ ONE (05:52)
[2024-07-24 05:55] LABS: Absolute Basophils 0.1 K/uL (0-0.5); Absolute Eosinophils 0.2 K/uL (0-0.5); Absolute Lymphocytes (CBC) 2.1 K/uL (0.7-4.9); Absolute Monocytes 0.7 K/uL (0.1-1.3); Absolute Neutrophil 4.2 K/uL (1.8-8.0); Eosinophils % 2.9 % (0-4.4); Hemoglobin 12.5 g/dL (13.6-17.9); Lymphocytes % 29.2 % (15.3-44.8); MCHC 33.9 g/dL (32.0-36.0); MCV 76.6 fL (80-100); MPV 7.6 fL (7.6-11.3); Monocytes % 9.3 % (3.3-12.3); Neutrophils % 57.6 % (41.7-73.7); Platelets 341 thou/uL (152-406); RBC Red Blood Cell Count 4.83 M/uL (4.33-5.43); Red Cell Distribution Width 15.9 % (12.1-15.2)
[2024-07-24 06:33] LABS: ALT/SGPT 28 U/L (16-61); Albumin 3.4 g/dL (3.4-5.0); Albumin/Globulin Ratio 0.6 (1.1-1.8); Alkaline Phosphatase 149 U/L (45-117); Anion Gap 12.6 mEq/L (5.0-15.0); BUN Blood Urea Nitrogen 30 mg/dL (7-18); Bicarbonate 27 mEq/L (21-32); Bilirubin Total 0.3 mg/dL (0.2-1.0); Globulin 5.8 g/dL (2.3-3.5); Glomerular Filtration Rate 68 ml/min (=/>90); Glucose Level 269 mg/dL (74-106); NT PRO-BNP 630 pg/mL (<125); Protein, Total 9.2 g/dL (6.4-8.2); Sodium Level 133 mEq/L (136-145); Troponin High Sensitivity 18.2 pg/mL (<58.9)
[2024-07-24 06:38] LABS: AST/SGOT 20 U/L (15-37); Bilirubin Direct < 0.2 mg/dL (0-0.2); Bilirubin Indirect, Calculated 0.1 mg/dL (0.2-0.8); Potassium 4.6 mEq/L (3.5-5.1)
--- NOTE | 2024-07-24 06:48 | RAD REPORT ---
EXAM: XR Chest 1 View AP HISTORY: Chest pain COMPARISON: Chest 1 View AP 07/14/2024 CT chest 03/23/2024 TECHNIQUE: Chest 1 View AP FINDINGS: Heart size and pulmonary vessels within normal limits. Lungs clear without evidence of consolidation, mass, or significant pulmonary edema. No significant pleural effusion or pneumothorax. Bones unremarkable. Sternotomy. Right-sided port catheter tip at SVC/RA junction. IMPRESSION: 1. No radiographic evidence of acute chest disease. 2. Right-sided port catheter. 3. Sternotomy. Electronically signed by: Cristian Bhat MD 07/24/2024 06:34 AM [facility] Due to temporary technical issues with the PACS/[employer] reporting system, reports are being brandon d by the in-house radiologist without review as a courtesy to ensure prompt reporting the interpreting radiologist is fully responsible for the content of the report. Transcribed Date/Time: 07/24/2024 6:47 AM
--- NOTE | 2024-07-24 07:45 | RAD REPORT ---
EXAMINATION: CT ABDOMEN AND PELVIS WITH CONTRAST CLINICAL INDICATION: Abdominal pain TECHNIQUE: CT abdomen and pelvis was performed, after the administration of 100 cc Isovue-300.. Sagit garo and coronal reconstructions were obtained. One or more of the following dose reduction techniques were used: Automated exposure control, adjustment of the mA and kV according to patient si ze, and iterative reconstruction. Unless otherwise specified, incidental findings do not require dedicated imaging follow-up. [id number]. Oral contrast was not given which limits evaluation of bowel and appendix. COMPARISON: .May 2024 FINDINGS: Calcified granuloma left lung. Small gallstone. Gallbladder wall does not appear thickened. Liver, spleen, pancreas and adrenals unremarkable. Partial nephrectomy left kidney. At the site of surgery is 2.4 cm low to intermediate density Hounsfi eld unit 34. Mild right hydronephrosis. Ureteral calculus not seen. Mild prostatic enlargement. No evidence of diverticulitis. Mild thickening wall distal esophagus. No evidence of diverticulitis. Moderate chronic compression deformity L1 vertebral body. Trace amount of ascites : IMPRESSION: Partial left nephrectomy. 2.4 cm low to intermediate density structure at the site of surgery without significant change from March 2024 presumably is a post surgical change. Residual/recurrent neoplasm considered less likely. Follow-up renal ultrasound in 3 months recommended for reevaluation. . Cholelithiasis without evidence of cholecystitis
[2024-07-24] MEDS ORDERED: LORazepam 2 MG/ML VIAL ONE (07:48)
[2024-07-24] MEDS ORDERED: HYDRALAZINE HCL 20 MG/ML VIAL ONE (07:49)
[2024-07-24] MEDS ORDERED: PROMETHAZINE INJ 25 MG/ML AMP ONE (07:50)
--- NOTE | 2024-07-24 09:39 | EDPHYS ---
Physician Documentation [facility] Name: Zeke Mackay Sr Age: 59 yrs Sex: Male : 1965 Arrival Date: 07/24/2024 Time: 05:15 Bed DX1 Private MD: ED Rashi Rogers HPI: 07/24 05:23 This 59 yrs old Male presents to ER via Unassigned with complaints of High sp4 Blood Pressure, Nausea/Vomiting. 08:05 Patient presents with profuse vomiting. . 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 - Infectious Disease History:: Denies. - Social history:: Smoking status: Patient denies any tobacco usage or history of. Patient uses street drugs, marijuana. - Family history:: not pertinent. ROS: 08:05 Constitutional: Negative for fever, chills, and weight loss, positive for vomiting sp4 08:05 All other systems are negative, Exam: 08:05 Constitutional: This is a well developed, well nourished patient who is awake, alert, sp4 and in no acute distress. Head/Face: Normocephalic, atraumatic. Eyes: Pupils equal round and reactive to light, extra-ocular motions intact. Lids and lashes normal. Conjunctiva and sclera are not injected. Cornea within normal limits. Periorbital areas with no swelling, redness, or edema. ENT: Nares patent. No nasal discharge, no septal abnormalities noted. Tympanic membranes are normal and external auditory canals are clear. Oropharynx with no redness, swelling, or masses, exudates, or evidence of obstruction, uvula midline. Mucous membranes moist. Neck: Trachea midline, no thyromegaly or masses palpated, and no cervical lymphadenopathy. Supple, full range of motion without nuchal rigidity, or vertebral point tenderness. Chest/axilla: Normal chest wall appearance and motion. Nontender with no deformity. No lesions are appreciated. Cardiovascular: Regular rate and rhythm with a normal S1 and S2. No gallops, murmurs, or rubs. Normal PMI, no JVD. No pulse deficits. Respiratory: Lungs have equal breath sounds bilaterally, clear to auscultation and percussion. No rales, rhonchi or wheezes noted. No increased work of breathing, no retractions or nasal flaring. Abdomen/GI: Soft, with normal bowel sounds. No distension or tympany. No guarding or rebound. No evidence of tenderness throughout. Back: No spinal tenderness. No costovertebral tenderness. Skin: Warm, dry with normal turgor. Normal color with no rashes, no lesions, and no evidence of cellulitis. MS/ Extremity: Pulses equal, no cyanosis. Neurovascular intact. Full, normal range of motion. Neuro: Awake and alert, GCS 15, oriented to person, place, time, and situation. Cranial nerves II-XII grossly intact. Motor strength 5/5 in all extremities. Sensory grossly intact. Psych: Awake, alert, with orientation to person, place and time. Behavior, mood, and affect are within normal limits 08:05 ECG was reviewed by the Attending Physician. EKG 0 634 NSR Vital Signs: 05:33 BP 234 / 102; Pulse 79; Resp 18; Temp 97.3; Pulse Ox 100% on R/A; Weight 83.91 kg; br2 Height 6 ft. 2 in. ; Pain 0/10; 06:50 BP 226 / 106; Pulse 81; Resp 20; Pulse Ox 99% ; jj7 08:40 BP 163 / 71; ap3 12:24 BP 180 / 80; Pulse 89; Resp 18; Pulse Ox 94% ; cm10 12:52 BP 169 / 77; Pulse 87; Resp 18; Pulse Ox 98% on R/A; ll1 05:33 Body Mass Index 23.75 (83.91 kg, 187.96 cm) br2 05:33 Pain Scale: Adult br2 Alicia Coma Score: 08:05 Eye Response: spontaneous(4). Motor Response: obeys commands(6). Verbal Response: sp4 oriented(5). Total: 15. MDM: 06:13 Medical Screening Exam initiated sp4 07:19 ED course: EXAM: XR Chest 1 ViewAP HISTORY: Chest pain COMPARISON: Chest 1 ViewAP sp4 07/14/2024 CT chest 03/23/2024 TECHNIQUE: Chest 1 ViewAP FINDINGS: Heart size and pulmonary vessels within normal limits. Lungs clear without evidence of consolidation, mass, or significant pulmonary edema. No significant pleural effusion or pneumothorax. Bones unremarkable. Sternotomy. Right-sided port catheter tip at SVC/RA junction. IMPRESSION: 1. No radiographic evidence of acute chest disease. 2. Right-sided port catheter. 3. Sternotomy. . 08:04 ED course: EXAMINATION: CTABDOMEN AND PELVIS WITH CONTRAST CLINICAL INDICATION: sp4 Abdominal pain TECHNIQUE: CT abdomen and pelvis was performed, after the administration of 100 cc Isovue-300.. Sagittal and coronal reconstructions were obtained. One or more of the following dose reduction techniques were used: Automated exposure control, adjustment of the mA and kV according to patient size, and iterative reconstruction. Unless otherwise specified, incidental findings do not require dedicated imaging follow-up. [id number]. Oral contrast was not given which limits evaluation of bowel and appendix. COMPARISON: .May 2024 FINDINGS: Calcified granuloma left lung. Small gallstone. Gallbladder wall does not appear thickened. Liver, spleen, pancreas and adrenals unremarkable. Partial nephrectomy left kidney. At the site of surgery is 2.4 cm low to intermediate density Hounsfield unit 34. Mild right hydronephrosis. Ureteral calculus not seen. Mild prostatic enlargement. No evidence of diverticulitis. Mild thickening wall distal esophagus. No evidence of diverticulitis. Moderate chronic compression deformity L1 vertebral body. Trace amount of ascites : IMPRESSION: Contrast Partial left nephrectomy. 2.4 cm low to intermediate density structure at the site of surgery without significant change from March 2024 presumably is a post surgical change. Residual/recurrent neoplasm considered less likely. Follow-up renal ultrasound in 3 months recommended for reevaluation.. Cholelithiasis without evidence of cholecystitis. 08:08 Differential diagnosis: hypertensive crisis, Malignant HTN. Data reviewed: vital signs, sp4 nurses notes. Consideration of Admission/Observation Escalation of care including admission/observation considered. Transition of care: After a detail discussion of the patient's case, care is transferred to Rashi Gimenez MD. 07/24 05:24 Order name: XRAY Chest (1 view) 4 07/24 05:24 Order name: Basic Metabolic Panel; Complete Time: 07:11 sp4 07/24 05:24 Order name: CBC with Diff; Complete Time: 06:37 sp4 07/24 05:24 Order name: LFT's; Complete Time: 07:11 sp4 07/24 05:24 Order name: Magnesium; Complete Time: 07:11 sp4 07/24 05:24 Order name: NT PRO-BNP; Complete Time: 07:11 sp4 07/24 05:24 Order name: Troponin HS; Complete Time: 07:11 sp4 07/24 05:26 Order name: Lipase; Complete Time: 06:37 sp4 07/24 06:37 Order name: CT Abd/Pelvis - IV Contrast Only; Complete Time: 08:03 sp4 07/24 05:24 Order name: Cardiac monitoring; Complete Time: 06:51 sp4 07/24 05:24 Order name: EKG - Nurse/Tech; Complete Time: 06:51 sp4 07/24 05:24 Order name: IV Saline Lock; Complete Time: 06:05 sp4 07/24 05:24 Order name: Labs collected and sent; Complete Time: 06:05 sp4 07/24 05:24 Order name: O2 Per Protocol; Complete Time: 06:05 sp4 07/24 05:24 Order name: O2 Sat Monitoring; Complete Time: 06:05 sp4 EC:34 Rate is 73 beats/min. Rhythm is regular, Normal Sinus Rhythm. QRS [place] is Normal. ND sp4 interval is normal. QRS interval is normal. QT interval is normal. No Q waves. T waves are Normal. No ST changes noted. Clinical impression: No evidence of ischemia. Reviewed by me. Administered Medications: 05:59 Drug: Ondansetron IVP 8 mg IVP once; over 2 minutes Route: IVP; Site: left forearm; jj7 06:30 Follow up: Response: Nausea is decreased jj7 05:59 Drug: NS 0.9% IV 1000 ml IV at 1 bolus Per protocol; to be given as a bolus over 60 jj7 minutes Route: IV; Rate: 1 bolus; Site: left forearm; 13:19 Follow up: Response: No adverse reaction; IV Status: Completed infusion; IV Intake: ll1 1000ml 05:59 Drug: metoCLOPramide IVP 10 mg IVP once; over 1 to 2 minutes Route: IVP; Site: left [address]; 06:29 Follow up: Response: Nausea is decreased jj7 08:19 Drug: Promethazine IM 25 mg IM once Route: IM; Site: right deltoid; ap3 13:19 Follow up: Response: No adverse reaction; Nausea is decreased ll1 08:19 Drug: hydrALAZINE IVP 20 mg IVP once Route: IVP; Site: left forearm; ap3 13:19 Follow up: Response: No adverse reaction ll1 08:19 Drug: Ativan IVP 1 mg IVP once Route: IVP; Site: left forearm; ap3 13:19 Follow up: Response: No adverse reaction; Anxiety decreased; RASS: Alert and Calm (0) ll1 12:50 Drug: Ondansetron IVP 4 mg IVP once; over 2 minutes Route: IVP; Site: left forearm; ll1 13:02 Follow up: Response: No adverse reaction ll1 Disposition Summary: 07/24/24 09:38 Discharge Ordered Notes: Location: Home shandra Problem: new shandra Symptoms: have improved shandra Condition: Stable shandra Diagnosis - Essential (primary) hypertension shandra - Vomiting shandra Followup: shandra - With: Private Physician - When: 2 - 3 days - Reason: Recheck today's complaints, Continuance of care, Re-evaluation by your physician Discharge Instructions: - Discharge Summary Sheet shandra - Hypertension, Adult shandra - Hypertension, Adult, [id number] shandra - How to Take Your Blood Pressure, [id number] shandra - Managing Your Hypertension shandra - Vomiting, Child shandra Forms: - Medication Reconciliation Form shandra - Antibiotic Education shandra - Prescription Opioid Use shandra - Patient Portal Instructions shandra - Leadership Thank You Letter [facility] Prescriptions: - ondansetron 4 mg Oral Tablet,disintegrating - take 1 tablet ORAL route every 8 hours prn n/v; 20 tablet; Refills: 0, Product shandra Selection Permitted Signatures: Dispatcher [employer] EDMS Rashi Gimenez MD MD cha Prokisch, Amanda, RN RN ap3 Jesusita De La Paz RN RN ll1 Kassi Parks RN RN jj7 Jag Horvath MD MD sp4 Courtney Dubose RN RN br2 Corrections: (The following items were deleted from the chart) 05:24 05:24 BASIC METABOLIC PANEL+C.LAB.BRZ ordered. EDMS EDMS 05:24 05:24 CBC+H.LAB.BRZ ordered. EDMS EDMS 05:24 05:24 HEPATIC FUNCTION+C.LAB.BRZ ordered. EDMS EDMS 05:24 05:24 MAGNESIUM+C.LAB.BRZ ordered. EDMS EDMS 05:24 05:24 PROBNP+C.LAB.BRZ ordered. EDMS EDMS 05:24 05:24 Troponin High Sensitivity+C.LAB.BRZ ordered. EDMS EDMS 05:24 05:24 Chest Single View+RAD.RAD.BRZ ordered. EDMS EDMS 05:27 05:27 LIPASE+C.LAB.BRZ ordered. EDMS EDMS
--- NOTE | 2024-07-24 09:39 | ER ---
Nurse's Notes [facility] Name: Zeke Mackay Sr Age: 59 yrs Sex: Male : 1965 Arrival Date: 07/24/2024 Time: 05:15 Bed DX1 Private MD: Diagnosis: Essential (primary) hypertension;Vomiting Presentation: 07/24 05:33 Chief complaint: Patient states: PT STATES HAS BEEN NAUSEATED AND HASN'T BEEN ABLE TO br2 TAKE B/P MEDS. PT STARTED VOMTING WHILE BRINGING BACK TO ROOM. PT STATES HE HAS BEEN GETTING CHEMO FOR KIDNEY CA WITH METS TO STOMACH AND ESOPHAGUS LAST TREATMENT 3 WEEKS AGO. Coronavirus screen: Client denies travel out of the [place] in the last 14 days. Ebola Screen: Patient denies exposure to infectious person. Initial Sepsis Screen: Does the patient meet any 2 criteria? No. Patient's initial sepsis screen is negative. Does the patient have a suspected source of infection? No. Patient's initial sepsis screen is negative. Risk Assessment: Do you want to hurt yourself or someone else? Patient reports no desire to harm self or others. Onset of symptoms was July 23, 2024. 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 - Infectious Disease History:: Denies. - Social history:: Smoking status: Patient denies any tobacco usage or history of. Patient uses street drugs, marijuana. - Family history:: not pertinent. Screenin:40 [facility] ED Fall Risk Assessment (Adult) History of falling in the last 3 months, jj7 including since admission No falls in past 3 months (0 pts) Confusion or Disorientation No (0 pts) Intoxicated or Sedated No (0 pts) Impaired Gait No (0 pts) Mobility Assist Device Used No (0 pt) Altered Elimination No (0 pt) Score/Fall Risk Level 0 - 2 = Low Risk Oriented to surroundings, Maintained a safe environment, Educated pt \T\ family on fall prevention, incl call for assistance when getting out of bed, Assessed \T\ reinforced patient's understanding of fall precautions. Abuse screen: Denies threats or abuse. Nutritional screening: No deficits noted. Tuberculosis screening: No symptoms or risk factors identified. Assessment: 05:40 General: Appears in no apparent distress. uncomfortable, Behavior is calm, appropriate jj7 for age. Pain: Denies pain. Cardiovascular: Reports since HTN. GI: Pt is actively vomiting Reports nausea, vomiting. 08:10 GI: Pt is actively vomiting but nothing is really coming out. ap3 10:15 General: Awaiting discharge due to receiving ativan and no ride.. cm10 12:52 Reassessment: No changes from previously documented assessment. Patient and/or family ll1 updated on plan of care and expected duration. Pain level reassessed. Patient is alert, oriented x 3, equal unlabored respirations, skin warm/dry/pink. Vital Signs: 05:33 BP 234 / 102; Pulse 79; Resp 18; Temp 97.3; Pulse Ox 100% on R/A; Weight 83.91 kg; br2 Height 6 ft. 2 in. ; Pain 0/10; 06:50 BP 226 / 106; Pulse 81; Resp 20; Pulse Ox 99% ; jj7 08:40 BP 163 / 71; ap3 12:24 BP 180 / 80; Pulse 89; Resp 18; Pulse Ox 94% ; cm10 12:52 BP 169 / 77; Pulse 87; Resp 18; Pulse Ox 98% on R/A; ll1 05:33 Body Mass Index 23.75 (83.91 kg, 187.96 cm) br2 05:33 Pain Scale: Adult br2 Gardner Coma Score: 08:05 Eye Response: spontaneous(4). Motor Response: obeys commands(6). Verbal Response: sp4 oriented(5). Total: 15. ED Course: 05:19 Patient arrived in ED. gm2 05:23 Jag Horvath MD is Attending Physician. sp4 05:36 Triage completed. br2 05:39 Missed attempt(s): 20 gauge in left forearm. Bleeding controlled, band aid applied, jj7 catheter tip intact. 05:40 Inserted saline lock: 20 gauge in left forearm, using aseptic technique. Blood jj7 collected. Flushed with 10 mL NS. 05:40 Patient has correct armband on for positive identification. Bed in low position. Call jj7 light in reach. Provided Education on: USE OF CALL PEÑA. Warm blanket given. 05:44 XRAY Chest (1 view) In Process Unspecified. EDMS 06:04 Kassi Parks RN is Primary Nurse. jj7 06:04 Lipase Sent. jj7 06:05 Basic Metabolic Panel Sent. jj7 06:05 LFT's Sent. jj7 06:05 Magnesium Sent. jj7 06:05 Troponin HS Sent. jj7 06:05 NT PRO-BNP Sent. jj7 07:00 Report given to FRANKY MORRIS. jj7 07:06 CT Abd/Pelvis - IV Contrast Only In Process Unspecified. EDMS 07:[address]. ap3 08:12 Attending Physician role handed off by Jag Horvath MD [facility] 08:12 Rashi Gimenez MD is Attending Physician. shandra 10:31 Arm band placed on right wrist. ap3 13:02 No provider procedures requiring assistance completed. IV discontinued, intact, ll1 bleeding controlled, No redness/swelling at site. Pressure dressing applied. Administered Medications: 05:59 Drug: Ondansetron IVP 8 mg IVP once; over 2 minutes Route: IVP; Site: left forearm; [facility] 06:30 Follow up: Response: Nausea is decreased jj7 05:59 Drug: NS 0.9% IV 1000 ml IV at 1 bolus Per protocol; to be given as a bolus over 60 jj7 minutes Route: IV; Rate: 1 bolus; Site: left forearm; 13:19 Follow up: Response: No adverse reaction; IV Status: Completed infusion; IV Intake: ll1 1000ml 05:59 Drug: metoCLOPramide IVP 10 mg IVP once; over 1 to 2 minutes Route: IVP; Site: left j forearm; 06:29 Follow up: Response: Nausea is decreased jj7 08:19 Drug: Promethazine IM 25 mg IM once Route: IM; Site: right deltoid; ap3 13:19 Follow up: Response: No adverse reaction; Nausea is decreased ll1 08:19 Drug: hydrALAZINE IVP 20 mg IVP once Route: IVP; Site: left forearm; ap3 13:19 Follow up: Response: No adverse reaction ll1 08:19 Drug: Ativan IVP 1 mg IVP once Route: IVP; Site: left forearm; ap3 13:19 Follow up: Response: No adverse reaction; Anxiety decreased; RASS: Alert and Calm (0) ll1 12:50 Drug: Ondansetron IVP 4 mg IVP once; over 2 minutes Route: IVP; Site: left forearm; ll1 13:02 Follow up: Response: No adverse reaction ll1 Medication: 05:40 VIS not applicable for this client. jj7 Intake: 13:19 IV: 1000ml; Total: 1000ml. 1 Outcome: 09:38 Discharge ordered by . shandra 13:02 Patient left the ED. 1 13:02 Discharged to home via wheelchair, 1 13:02 Condition: stable 13:02 Discharge instructions given to patient, Instructed on discharge instructions, follow up and referral plans. medication usage, Demonstrated understanding of instructions, follow-up care, medications, Prescriptions given X 1, Signatures: Dispatcher [employer] EDMS Rashi Gimenez MD MD cha Prokisch, Amanda RN RN ap3 Jesusita De La Paz RN RN ll1 Kassi Parks RN RN jj7 Jag Horvath MD MD sp4 Carol Merino RN RN cm10 Trina Reynoso 2 Courtney Dubose RN RN br2
[2024-07-24 13:09] VITALS: TEMP 97.3
[2024-07-24 13:13] VITALS: BP 169/77; O2SAT 98
== END 2024-07-24 13:02 | disposition home or self-care (01) ==
LOC: ER 05:15
DX: I10 Essential (primary) hypertension (principal); Z95.1 Presence of aortocoronary bypass graft
CPT/HCPCS: 96361; 93005; 85025; 80048; 36415; 83735; 80076; 84484; 83690; 83880; 74177; 71045; 96375; 96372; 96374; 99285; Q9967; J2550; J0360; J2765; J2405 ×2; J7030

== ENCOUNTER 2024-07-26 01:09 | Emergency (ER) | payer OTHER, BC ==
--- NOTE | 2024-07-26 01:39 | EDPHYS ---
Physician Documentation [facility] Name: Zeke Mackay Sr Age: 59 yrs Sex: Male : 1965 Arrival Date: 07/26/2024 Time: 01: Bed IW1 Private MD: ED Physician Sylvain Leger HPI: 07/26 04:08 This 59 yrs old Male presents to ER via Ambulatory with complaints of Nausea. rt 04:08 Patient with history of gastric cancer presents to the ED with nausea, has been taking rt Zofran, olanzapine to no relief. States that Phenergan does work for his nausea. The patient had a recent workup, does not wish to have further workup. Symptoms are moderate in severity, no other aggravating or alleviating factors.. 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 - Infectious Disease History:: Denies. - Social history:: Smoking status: Patient uses street drugs, marijuana. - Family history:: not pertinent. ROS: 04:08 Constitutional: Negative for fever, chills, and weight loss, Cardiovascular: Negative rt for chest pain, palpitations, and edema, Respiratory: Negative for shortness of breath, cough, wheezing, and pleuritic chest pain, MS/Extremity: Negative for injury and deformity, Skin: Negative for injury, rash, and discoloration, Neuro: Negative for headache, weakness, numbness, tingling, and seizure, 04:08 Abdomen/GI: Positive for nausea, Negative for abdominal pain, Exam: 04:08 Constitutional: This is a well developed, well nourished patient who is awake, alert, rt and in no acute distress. Head/Face: Normocephalic, atraumatic. Chest/axilla: Normal chest wall appearance and motion. Nontender with no deformity. No lesions are appreciated. Cardiovascular: Regular rate and rhythm with a normal S1 and S2. No gallops, murmurs, or rubs. Normal PMI, no JVD. No pulse deficits. Respiratory: Lungs have equal breath sounds bilaterally, clear to auscultation and percussion. No rales, rhonchi or wheezes noted. No increased work of breathing, no retractions or nasal flaring. Abdomen/GI: Soft, non-tender, with normal bowel sounds. No distension or tympany. No guarding or rebound. No evidence of tenderness throughout. Skin: Warm, dry with normal turgor. Normal color with no rashes, no lesions, and no evidence of cellulitis. MS/ Extremity: Pulses equal, no cyanosis. Neurovascular intact. Full, normal range of motion. Neuro: Awake and alert, GCS 15, oriented to person, place, time, and situation. Cranial nerves II-XII grossly intact. Motor strength 5/5 in all extremities. Sensory grossly intact. Cerebellar exam normal. Normal gait. Vital Signs: 01:20 BP 175 / 87; Pulse 77; Resp 18 S; Temp 97.3(T); Pulse Ox 98% on R/A; Weight 83.91 kg; ha1 Height 6 ft. 2 in. ; 01:20 Body Mass Index 23.75 (83.91 kg, 187.96 cm) ha1 MDM: 01:34 Medical Screening Exam initiated rt 04:08 Differential diagnosis: Nausea due to cancer. Data reviewed: vital signs, nurses notes. rt I considered the following discharge prescriptions or medication management in the emergency department Medications were administered in the Emergency Department. See MAR. Test considered but Not performed: Other Details Patient with recent workup, do not believe that repeat workup is necessary at this time, labs, CT scan are not indicated, will treat patient's nausea. Care significantly affected by the following chronic conditions: Gastric cancer. Counseling: I had a detailed discussion with the patient and/or guardian regarding the historical points, exam findings, and any diagnostic results supporting the discharge/admit diagnosis, the need for outpatient follow up, to return to the emergency department if symptoms worsen or persist or if there are any questions or concerns that arise at home. Response to treatment: the patient's symptoms have markedly improved after treatment. Administered Medications: 01:55 Drug: Promethazine PO 25 mg PO once Route: PO; ha1 03:36 Follow up: Response: No adverse reaction; Marked relief of symptoms; Nausea is decreasedha1 Disposition Summary: 07/26/24 01:39 Discharge Ordered Notes: Location: Home rt Problem: an ongoing problem rt Symptoms: have improved rt Condition: Stable rt Diagnosis - Nausea rt Followup: rt - With: Private Physician - When: 2 - 3 days - Reason: Discharge Instructions: - Discharge Summary Sheet rt - Nausea, Adult rt Forms: - Medication Reconciliation Form rt - Antibiotic Education rt - Prescription Opioid Use rt - Patient Portal Instructions rt - Leadership Thank You Letter rt Prescriptions: - promethazine 25 mg Oral tablet - take 1 tablet ORAL route every 6 hours As needed; 30 tablet; Refills: 0, rt Product Selection Permitted Signatures: Moni Douglas RN RN ha1 Sylvain Leger MD MD rt
--- NOTE | 2024-07-26 01:39 | ER ---
Nurse's Notes [facility] Name: Zeke Mackay Sr Age: 59 yrs Sex: Male : 1965 Arrival Date: 07/26/2024 Time: : Bed IW1 Private MD: Diagnosis: Nausea Presentation: 07/26 01:20 Chief complaint: Patient states: I HAVE STOMACH CANCER AND I AM FEELING NAUSEA . HOME ha1 MEDICATION NOT IMPROVING. 01:20 Coronavirus screen: Client denies travel out of the [place] in the last 14 days. Ebola ha1 Screen: No symptoms or risks identified at this time. Initial Sepsis Screen: Does the patient meet any 2 criteria? No. Patient's initial sepsis screen is negative. Does the patient have a suspected source of infection? No. Patient's initial sepsis screen is negative. Risk Assessment: Do you want to hurt yourself or someone else? Patient reports no desire to harm self or others. Onset of symptoms was July 26, 2024. 01:20 Method Of Arrival: Ambulatory ha1 01:20 Acuity: RICKEY 5 ha1 Triage Assessment: 01:20 General: Appears uncomfortable, Behavior is calm, cooperative. Pain: Denies pain. ha1 Neuro: Level of Consciousness is awake, alert, obeys commands, Oriented to person, place, time, situation. Cardiovascular: Capillary refill < 3 seconds Patient's skin is warm and dry. Respiratory: Airway is patent Respiratory effort is even, unlabored, Respiratory pattern is regular, symmetrical. GI: Abdomen is round non-distended, Reports nausea. : No signs and/or symptoms were reported regarding the genitourinary system. Derm: Skin is pink, warm \T\ dry. 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 - Infectious Disease History:: Denies. - Social history:: Smoking status: Patient uses street drugs, marijuana. - Family history:: not pertinent. Screenin:32 [facility] ED Fall Risk Assessment (Adult) History of falling in the last 3 months, ha1 including since admission No falls in past 3 months (0 pts) Confusion or Disorientation No (0 pts) Intoxicated or Sedated No (0 pts) Impaired Gait No (0 pts) Mobility Assist Device Used No (0 pt) Altered Elimination No (0 pt) Score/Fall Risk Level 0 - 2 = Low Risk Oriented to surroundings, Maintained a safe environment, Educated pt \T\ family on fall prevention, incl call for assistance when getting out of bed, Hourly rounding (assess needs \T\ fall precautionary measures) done. Abuse screen: Denies threats or abuse. Denies injuries from another. Nutritional screening: No deficits noted. Tuberculosis screening: No symptoms or risk factors identified. Assessment: 03:36 Reassessment: Patient and/or family updated on plan of care and expected duration. Pain ha1 level reassessed. Patient is alert, oriented x 3, equal unlabored respirations, skin warm/dry/pink. Patient denies pain at this time. Patient states feeling better. Patient states symptoms have improved. Vital Signs: 01:20 BP 175 / 87; Pulse 77; Resp 18 S; Temp 97.3(T); Pulse Ox 98% on R/A; Weight 83.91 kg; ha1 Height 6 ft. 2 in. ; 01:20 Body Mass Index 23.75 (83.91 kg, 187.96 cm) ha1 ED Course: 01:13 Patient arrived in ED. gm2 01:13 Sylvain Leger MD is Attending Physician. rt 01:20 Patient has correct armband on for positive identification. ha1 01:20 Arm band placed on right wrist. ha1 01:20 Provided Education on: MEDICATION ADMINISTRATION . ha1 01:31 Triage completed. ha1 03:36 No provider procedures requiring assistance completed. Patient did not have IV access ha1 during this emergency room visit. Administered Medications: 01:55 Drug: Promethazine PO 25 mg PO once Route: PO; ha1 03:36 Follow up: Response: No adverse reaction; Marked relief of symptoms; Nausea is decreasedha1 Medication: 03:37 VIS not applicable for this client. ha1 Outcome: 01:39 Discharge ordered by . rt 03:36 Discharged to home ambulatory, ha1 03:36 Condition: stable 03:36 Discharge instructions given to patient, Instructed on discharge instructions, follow up and referral plans. medication usage, Demonstrated understanding of instructions, follow-up care, medications, Prescriptions given X 1, 03:38 Patient left the ED. ha1 Signatures: Moni Douglas RN RN ha1 Sylvain Leger MD MD rt Trina Reynoso 2
--- OUTSIDE RECORDS SUMMARY | 2024-07-26 01:43 | XMS REPORT | Clinical Summary ---
Author Name Unknown Organization [facility] Address [address] [place] [address] Care Team Providers Care Dna Sequencing Associate Name Role Phone Margoth Souza MD Primary Care Provider [phone] Mary Jane Cassidy MD Unavailable [phone] Barry He MD Unavailable Patience Hunt MD Unavailable ZhuEagle gomez DO Unavailable [phone] Marianela Hutchinson MD Unavailable [phone] Margoth Souza MD Unavailable Ceci Nicholson MD Unavailable [phone] Marianela Hutchinson MD Primary Care Provider [phone] Sigifredo Davenport MD Unavailable Allergies No known [...] by Tylenol). 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 01/02/2024 04/14/2024 Diabetic ketoacidosis 2023 Overview (01/01/2024): Hospitalized locally 12/03/2023-12/06/2023 Encounters Date Type Department Care Team Description 07/22/2024 Orders Only Ambulatory Treatment [facility] - [place] [address] [facility], 8th [place] [address] Marianela Hutchinson MD Adenocarcinoma of stomach (Primary Dx) 07/21/2024 Telephone Amb[facility] Treatment [facility] [place] [address] [facility], 8th [place] [address] Rosanna Álvarez, ARTURO Chemotherapy Teaching 07/16/2024 2:40 PM HYPERCIL CORE TRANSFORMER ASSEMBLER [facility] [address] [place] [address] Main [facility], 7th [place] [address] Marianela Hutchinson MD Adenocarcinoma of stomach (Primary Dx) 07/16/2024 Orders Only [facility] [address] [place] [address], 7th [place] [address] Marianela Hutchinson MD Adenocarcinoma of stomach (Primary Dx) 07/16/2024 Orders Only [facility] [address] [place] [address], 7th [place] [address] Radha Castellon [facility] Adenocarcinoma of stomach (Primary Dx) 07/16/2024 Travel 07/15/2024 10:08 AM HYPERCIL CORE TRANSFORMER ASSEMBLER - 07/15/2024 11:59 PM HYPERCIL CORE TRANSFORMER ASSEMBLER Hospital Encounter Main CT IMAGING [facility], 3rd [place] [address] Mary Kay Santamaria APRN Adenocarcinoma of stomach Discharge Disposition: Home 07/15/2024 9:49 AM HYPERCIL CORE TRANSFORMER ASSEMBLER - 07/15/2024 10:07 AM HYPERCIL CORE TRANSFORMER ASSEMBLER Hospital Encounter Diagnostic [facility] [address] [facility] Main [facility], [place] [address] Mary Kay Santamaria APRN Adenocarcinoma of stomach Discharge Disposition: Home 07/07/2024 Orders Only [facility] [address] [place] [address], 7th [place] [address] Gillian Gomez PA-C Adenocarcinoma of stomach (Primary Dx) 07/06/2024 Telephone [facility] - Surgical Oncology [address] [place] [address] Main dg, 7th [place] [address] Mary Kay Santamaria, DTP OPERATOR 07/06/2024 Orders Only [facility] - Surgical Oncology [address] [place] [address] Main dg, 7th [place] [address] Mary Kay Santamaria, DTP OPERATOR 07/06/2024 Orders Only [facility] [address] [place] [address] Main dg, 7th [place] [address] Gillian Gomez PA-C Adenocarcinoma of stomach (Primary Dx) 07/06/2024 Multidisciplinary Visit [facility] [address] [place] [address] Main [facility], 7th [place] [address] Gillian Gomez PA-C 07/06/2024 Orders Only [facility] [address] [place] [address] Main dg, 7th [place] [address] Donnell Van Adenocarcinoma of stomach (Primary Dx) 07/02/2024 11:00 AM HYPERCIL CORE TRANSFORMER ASSEMBLER Nutrition Clinical Nutrition For your Nutrition appointment location directions please call: Marianela Hutchinson MD Munder, Kathryn, SCOTT Left without seen 07/02/2024 10:30 AM HYPERCIL CORE TRANSFORMER ASSEMBLER [facility] - Surgical Oncology [address] [place] [address] Main Bldg, 7th Floor Elevator A [place] [id number] John Fong MD Adenocarcinoma of stomach 07/02/2024 Documentation [facility] Oncology [address] [place] [address] Main dg, 7th Floor Elevator A [place] [id number] John Fong MD 06/30/2024 3:33 PM HYPERCIL CORE TRANSFORMER ASSEMBLER Anesthesia Event Perioperative Evaluation and Management Center [address] [place] [address] Main dg, 6th Floor Elevator A [place] [id number] Lien Antonio RN 06/30/2024 12:25 PM HYPERCIL CORE TRANSFORMER ASSEMBLER Anesthesia Event Endoscopy Center [address] [place] [address] Main [facility], 5th [place] [address] Susana Kelly MD 06/30/2024 12:00 PM HYPERCIL CORE TRANSFORMER ASSEMBLER - 06/30/2024 12:45 PM HYPERCIL CORE TRANSFORMER ASSEMBLER Surgery [facility] [address] [place] [address], 5th Floor Elevator C [place] [phone] Brandon Alcala MD DIAGNOSTIC UPPER GASTROINTESTINAL ENDOSCOPY 06/30/2024 10:15 AM HYPERCIL CORE TRANSFORMER ASSEMBLER - 06/30/2024 2:24 PM HYPERCIL CORE TRANSFORMER ASSEMBLER Hospital Encounter Endoscopy Center [address] [place] [address], 5th Floor Elevator C [place] [phone] Brandon Alcala MD Adenocarcinoma of stomach Discharge Disposition: Home 06/30/2024 Travel 06/29/2024 9:00 AM HYPERCIL CORE TRANSFORMER ASSEMBLER Consult Perioperative Evaluation and Management [address] [place] [address], 6th [place] [address] Mary Kay Santamaria APRN Vu, Khanh D, MD Encounter for preprocedural cardiovascular examination (Primary Dx); Coronary arteriosclerosis, not otherwise specified; Cardiomyopathy, not otherwise specified; Hypertension; terminal operator 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 use of 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; Type 2 diabetes mellitus with hyperglycemia; Dyslipidemia; Hyponatremia; Hyperkalemia; Adenocarcinoma of stomach; Paroxysmal atrial fibrillation; Hyperlipidemia, not otherwise specified 06/29/2024 8:00 AM HYPERCIL CORE TRANSFORMER ASSEMBLER POEM Appointments Perioperative [facility] Management [facility] [address] [place] [address], 6th [place] [address] Marianela Hutchinson MD 06/29/2024 7:30 AM HYPERCIL CORE TRANSFORMER ASSEMBLER - 06/29/2024 11:59 PM HYPERCIL CORE TRANSFORMER ASSEMBLER Hospital Encounter [facility] - Card[facility] [address] [place] [address] Main [facility], 2nd Floor Elevator A [place] [phone] Mary Kay Santamaria APRN Adenocarcinoma of stomach Discharge Disposition: Home 06/29/2024 Travel 06/23/2024 Documentation [facility] [address] [place] [address], 7th [place] [address] Mony Saavedra RN 06/22/2024 12:20 PM HYPERCIL CORE TRANSFORMER ASSEMBLER [facility] [address] [place] [address], 7th [place] [address] Marianela Hutchinson MD Adenocarcinoma, NOS of stomach, NOS 06/22/2024 Orders Only [facility] [address] [place] [address], [facility] [place] [address] Radha Castellon, [facility] 06/22/2024 Travel 06/20/2024 10:45 AM HYPERCIL CORE TRANSFORMER ASSEMBLER - 06/20/2024 11:59 PM HYPERCIL CORE TRANSFORMER ASSEMBLER Hospital Encounter Diagnostic Imaging Center [address] [place] [address], 3rd [place] [address] Adenocarcinoma, NOS of stomach, NOS; Malignant neoplasm of overlapping sites of esophagus Discharge Disposition: Home 06/20/2024 10:08 AM HYPERCIL CORE TRANSFORMER ASSEMBLER - 06/20/2024 10:44 AM HYPERCIL CORE TRANSFORMER ASSEMBLER Hospital Encounter [facility] [address] [place] [address], [place] [address] Gillian Gomez PA-C Adenocarcinoma, NOS of stomach, NOS Discharge Disposition: Home 06/16/2024 [employer] [facility] - Surgical Oncology [address] [place] [address], 7th [place] [address] Mary Kay Santamaria APRN 06/15/2024 1:30 PM HYPERCIL CORE TRANSFORMER ASSEMBLER Infusion Ambulatory Treatment [facility] - Blue [address] [facility], 8th [place] [address] [facility] Adenocarcinoma of stomach (Primary Dx); Iron deficiency anemia, not otherwise specified 06/15/2024 12:40 PM HYPERCIL CORE TRANSFORMER ASSEMBLER [facility] [address] [place] [address], [facility] [place] [address] Marianela Hutchinson MD Adenocarcinoma, NOS of stomach, NOS; Malignant neoplasm of overlapping sites of esophagus 06/15/2024 10:24 AM HYPERCIL CORE TRANSFORMER ASSEMBLER - 06/15/2024 11:59 PM HYPERCIL CORE TRANSFORMER ASSEMBLER Hospital Encounter Diagnostic Laboratory Center [address] [place] [address] Main [facility], [place] [address] Marianela Hutchinson MD Adenocarcinoma of stomach; Adenocarcinoma, NOS of stomach, NOS Discharge Disposition: Home 06/15/2024 Orders Only [facility] [address] [place] [address] Main [facility], 7th [place] [address] Radha Castellon, [facility] Adenocarcinoma of stomach (Primary Dx) 06/15/2024 Orders Only [facility] [address] [place] [address] Main [facility], 7th [place] [address] Gillian Gomez PA-C 06/15/2024 Travel 06/15/2024 Telephone [facility] - Gastroenterology, Hepatology & Nutrition [address] [place] [address] Main [facility], 7th [place] [address] Arnaldo Araujo PA-C 06/15/2024 Multidisciplinary Visit [facility] [address] [place] [address] Main [facility], 7th [place] [address] Lakeshia Pablo PA 06/15/2024 Orders Only [facility] [address] [place] [address] Main [facility], [facility] [place] [address] Marianela Hutchinson MD Adenocarcinoma of stomach (Primary Dx) 06/12/2024 Prep for Surgery [facility] - Gastroenterology, Hepatology & Nutrition [address] [place] [address] Main [facility], 7th [place] [address] Arnaldo Araujo PA-C Adenocarcinoma of stomach (Primary Dx) 06/12/2024 Telephone [facility] - Surgical Oncology [facility] Main [facility], [facility] [place] [address] Mary Kay Santamaria APRN 06/12/2024 Orders Only [facility] - Surgical Oncology [facility] Main dg, 7th [place] [address] Mary Kay Santamaria APRN Adenocarcinoma of stomach (Primary Dx) 06/10/2024 Orders Only [facility] - Surgical Oncology [facility] Main [facility], 7th [place] [address] Mary Kay Santamaria APRN Adenocarcinoma of stomach (Primary Dx) 06/05/2024 Telephone [facility] - Gastroenterology, Hepatology & Nutrition [facility] Main [facility], 7th [place] [address] Arnaldo Araujo PA-C 06/03/2024 5:30 PM HYPERCIL CORE TRANSFORMER ASSEMBLER Infusion Amb[facility] Treatment [facility] - Blue [address] [facility], 8th [place] [address] Marianela Hutchinson MD Lewandowski, Teresa M, RN Adenocarcinoma of stomach (Primary Dx) 06/03/2024 Travel 06/02/2024 Telephone [facility] [address] [place] [address], 7th [place] [address] Mony Saavedra, ARTURO 06/01/2024 1:00 PM HYPERCIL CORE TRANSFORMER ASSEMBLER Infusion [facility] [address] [facility], Floor 6 [place] [address] Marianela Hutchinson MD Shaik, Anna Marie B, RN Adenocarcinoma of stomach (Primary Dx); Iron deficiency anemia, not otherwise specified 06/01/2024 10:53 AM HYPERCIL CORE TRANSFORMER ASSEMBLER - 06/01/2024 11:59 PM HYPERCIL CORE TRANSFORMER ASSEMBLER Hospital Encounter Diagnostic Laboratory Center [address] [place] [address], [place] [address] Marianela Hutchinson MD Adenocarcinoma of stomach; Iron deficiency anemia, not otherwise specified Discharge Disposition: Home 06/01/2024 Orders Only [facility] [address] [place] [address], 7th [place] [address] Marianela Hutchinson MD 06/01/2024 Orders Only [facility] [address] [place] [address] Main [facility], 7th [place] [address] Radha Castellon, [facility] Adenocarcinoma of stomach (Primary Dx); Iron deficiency anemia, not otherwise specified 06/01/2024 Travel 06/01/2024 Orders Only [facility] [address] [facility], Floor 6 [place] [address] Marianela Hutchinson MD Adenocarcinoma of stomach (Primary Dx) 05/26/2024 Telephone [facility] - Gastroenterology, Hepatology & Nutrition [facility] Main [facility], 7th [place] [address] Arnaldo Araujo PA-C 05/22/2024 Telephone [facility] - Gastroenterology, Hepatology & Nutrition [address] [facility], 7th [place] [address] Arnaldo Araujo PA-C 05/22/2024 Orders Only [facility] - Gastroenterology, Hepatology & Nutrition [address] [place] [address], 7th [place] [address] Arnaldo Araujo PA-C Candidal esophagitis (Primary Dx) 05/20/2024 4:30 PM HYPERCIL CORE TRANSFORMER ASSEMBLER - 05/20/2024 11:59 PM HYPERCIL CORE TRANSFORMER ASSEMBLER Hospital Encounter Ambulatory Treatment Center - [address], 2nd Floor, [place] [address] Marianela Hutchinson MD Lewandowski, Teresa M, RN Adenocarcinoma of stomach Discharge Disposition: Home 05/19/2024 12:44 PM HYPERCIL CORE TRANSFORMER ASSEMBLER Anesthesia Event [facility] [address] [place] [address], 5th Floor Elevator [address] [place] [phone] Maurice Ferrera MD Thomas, Ashly [facility] 05/19/2024 12:00 PM HYPERCIL CORE TRANSFORMER ASSEMBLER - 05/19/2024 1:10 PM HYPERCIL CORE TRANSFORMER ASSEMBLER Surgery [facility] [address] [place] [address], 5th Floor Elevator [address] [place] [phone] Brandon Alcala MD UPPER GASTROINTESTINAL ENDOSCOPY OF ESOPHAGUS, STOMACH, OR DUODENUM ANDJ ADJACENT STRUCTURES, WITH ENDOSCOPIC ULTRASOUND EXAMINATION 05/19/2024 11:17 AM HYPERCIL CORE TRANSFORMER ASSEMBLER - 05/19/2024 2:49 PM HYPERCIL CORE TRANSFORMER ASSEMBLER Hospital Encounter [facility]oscopy Center [address] [place] [address], 5th [place] [address] Brandon Alcala MD Adenocarcinoma of stomach Discharge Disposition: Home 05/19/2024 Travel 05/18/2024 1:00 PM HYPERCIL CORE TRANSFORMER ASSEMBLER Infusion [facility] [address] [facility], Floor 6 [place] [address] Marianela Hutchinson MD Rupp, Alexa B RN Adenocarcinoma of stomach (Primary Dx) 05/18/2024 12:20 PM HYPERCIL CORE TRANSFORMER ASSEMBLER [facility] [address] [place] [address], 7th [place] [address] Marianela Hutchinson MD Adenocarcinoma, NOS of stomach, NOS 05/18/2024 11:00 AM HYPERCIL CORE TRANSFORMER ASSEMBLER POEM Appointments Perioperative Evaluation and Management Center [address] [place] [address], 6th [place] [address] Marianela Hutchinson MD 05/18/2024 10:32 AM HYPERCIL CORE TRANSFORMER ASSEMBLER - 05/18/2024 11:59 PM HYPERCIL CORE TRANSFORMER ASSEMBLER Hospital Encounter Diagnostic Laboratory Center [address] [place] [address], [place] [address] Gillian Gomez PA-C Adenocarcinoma, NOS of stomach, NOS Discharge Disposition: Home 05/18/2024 Orders Only [facility] [address] [place] [address], 7th [place] [address] Marianela Hutchinson MD Adenocarcinoma of stomach (Primary Dx) 05/18/2024 Orders Only [facility] [address] [place] [address], 7th [place] [address] Radha Castellon [facility] Adenocarcinoma of stomach (Primary Dx); Iron deficiency anemia, not otherwise specified 05/18/2024 Travel 05/15/2024 11:59 PM HYPERCIL CORE TRANSFORMER ASSEMBLER Anesthesia Event Perioperative Evaluation [facility] Management Center [address] [place] [address], 6th [place] [address] Eri Lynne RN 05/06/2024 5:30 PM HYPERCIL CORE TRANSFORMER ASSEMBLER Infusion Ambulatory Treatment Center - Blue [address] [facility], 8th [place] [address] Marianela Hutchinson MD Pagara, Leni S RN Adenocarcinoma of stomach 05/04/2024 12:36 PM HYPERCIL CORE TRANSFORMER ASSEMBLER - 05/04/2024 11:59 PM HYPERCIL CORE TRANSFORMER ASSEMBLER Hospital Encounter Ambulatory Treatment Center - Main Building [address] [place] [address], 2nd Floor, [place] [address] Gillian Gomez PA-C Jo, Edifia Sungsoon, RN Adenocarcinoma of stomach (Primary Dx) Discharge Disposition: Home 05/04/2024 12:20 PM HYPERCIL CORE TRANSFORMER ASSEMBLER [facility] [address] [place] [address], 7th [place] [address] Marianela Hutchinson MD Adenocarcinoma, NOS of stomach, NOS 05/04/2024 11:10 AM HYPERCIL CORE TRANSFORMER ASSEMBLER - 05/04/2024 12:35 PM HYPERCIL CORE TRANSFORMER ASSEMBLER Hospital Encounter Diagnostic Laboratory Center [address] [place] [address], Elevator A [place] [phone] Gillian Gomez PA-C Adenocarcinoma, NOS of stomach, NOS; Adenocarcinoma of stomach Discharge Disposition: Home 05/04/2024 Orders Only [facility] [address] [place] [address], 7th [place] [address] Marianela Hutchinson MD Adenocarcinoma of stomach (Primary Dx) 05/04/2024 Orders Only [facility] [address] [place] [address], 7th Floor Elevator A [place] [phone] Radha Castellon Werner Adenocarcinoma of stomach (Primary Dx) 05/04/2024 Travel 04/30/2024 Orders Only [facility] - Surgical Oncology [address] [place] [address], 7th Floor Elevator A [place] [phone] Mary Kay Santamaria APRN Adenocarcinoma of stomach (Primary Dx); Paroxysmal atrial fibrillation; Hyperlipidemia, not otherwise specified; Type 2 diabetes mellitus with hyperglycemia 04/27/2024 8:05 PM HYPERCIL CORE TRANSFORMER ASSEMBLER Ancillary Procedure Image Library [address] [place], [place] [id number] Cancer 04/27/2024 8:00 PM HYPERCIL CORE TRANSFORMER ASSEMBLER Ancillary Procedure Image Library [address] [place] [address] Cancer 04/27/2024 Orders Only [facility] [address] [place] [address], [facility] [place] [address] Donnell Van Adenocarcinoma of stomach (Primary Dx) 04/24/2024 Documentation Vascular Access and Procedures Center [address] [facility], 8th Floor Elevator U [place] [phone] Mary Kay Santamaria, DTP OPERATOR 04/24/2024 Orders Only [facility] - Surgical Oncology [address] [place] [address], [address] [place], [place] [address]ator [place] [phone] Mary Kay Santamaria, DTP OPERATOR Adenocarcinoma, NOS of stomach, NOS (Primary Dx) 04/24/2024 Telephone [facility] - Surgical Oncology [address] [place] [address], [address] [place], [place] [phone] Mary Kay Santamaria, DTP OPERATOR 04/22/2024 Lab Requisition [facility] AP LAB Sincere Moralez MD Jain, Shilpa, MD 04/21/2024 Orders Only [facility] [address] [place] [address], [address] [place] [address] Elevator [place] [phone] Gillian Gomez PA-C Adenocarcinoma, NOS of stomach, NOS (Primary Dx); Adenocarcinoma of stomach 04/16/2024 Telephone [facility] TARIQCOBebeto PHYSICIAN [address] [place] [address] 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, set off press operator Call 04/15/2024 10:09 AM HYPERCIL CORE TRANSFORMER ASSEMBLER Anesthesia Event MAIN OR [address] [place] [address] Meenakshi Crowe MD Miller, Wendy, [employer] TECHNICIAN 04/15/2024 10:05 AM HYPERCIL CORE TRANSFORMER ASSEMBLER - 04/15/2024 1:25 PM HYPERCIL CORE TRANSFORMER ASSEMBLER Surgery MAIN OR [address] [place] [address] John Fong MD ROBOTIC ASSISTED SURGICAL LAPAROSCOPY 04/15/2024 7:32 AM HYPERCIL CORE TRANSFORMER ASSEMBLER - 04/15/2024 11:50 PM HYPERCIL CORE TRANSFORMER ASSEMBLER Hospital Encounter MAIN OR [address] [place] [address] John Fong MD Adenocarcinoma of stomach (Primary Dx) Discharge Disposition: Home 04/15/2024 Travel 04/14/2024 2:30 PM HYPERCIL CORE TRANSFORMER ASSEMBLER Consult [facility] - Surgical Oncology [address] [place] [address], 7th [place] [address] Gillian Gomez PA-C Badgwell, Brian, MD Adenocarcinoma, NOS of stomach, NOS (Primary Dx); Nausea 04/14/2024 Documentation [facility] - Surgical Oncology [address] [place] [address], [facility] [place] [address] John Fong MD 04/13/2024 3:00 PM HYPERCIL CORE TRANSFORMER ASSEMBLER Consult [facility] [address] [place] [address], [facility] [place] [address] Marianela Hutchinson MD Mass of stomach (Primary Dx) 04/13/2024 2:02 PM HYPERCIL CORE TRANSFORMER ASSEMBLER Anesthesia Event Perioperative Evaluation and Management Center [address] [place] [address], 6th Floor Elevator [place] [phone] Curtis Moctezuma PA 04/12/2024 8:22 AM HYPERCIL CORE TRANSFORMER ASSEMBLER - 04/12/2024 3:42 PM HYPERCIL CORE TRANSFORMER ASSEMBLER Emergency MAIN [id number] [address] [place] [address] Nghia Zhu MD Elsayem, Ahmed, MD Nausea and vomiting (Primary Dx); Gastric cancer; Pancreatitis Discharge Disposition: Left Against Medical Advice 04/12/2024 Travel 04/09/2024 8:25 PM HYPERCIL CORE TRANSFORMER ASSEMBLER Ancillary Procedure Image Library [address] [place] [address] Margoth Souza MD Cancer 04/09/2024 8:20 PM HYPERCIL CORE TRANSFORMER ASSEMBLER Ancillary Procedure Image Library [address] [place] [address] Margoth Souza MD Cancer 04/09/2024 8:15 PM HYPERCIL CORE TRANSFORMER ASSEMBLER Ancillary Procedure Image Library [address] [place] [address] Margoth Souza MD Cancer 04/09/2024 8:10 PM HYPERCIL CORE TRANSFORMER ASSEMBLER Ancillary Procedure Image Library [address] [place] [address] Margoth Souza MD Cancer 04/09/2024 8:05 PM HYPERCIL CORE TRANSFORMER ASSEMBLER Ancillary Procedure Image Library [address] [place] [address] Margoth Souza MD Cancer 04/09/2024 8:00 PM HYPERCIL CORE TRANSFORMER ASSEMBLER Ancillary Procedure Image Library [address] [place] [address] Margoth Souza MD Cancer 04/09/2024 10:48 AM HYPERCIL CORE TRANSFORMER ASSEMBLER - 04/09/2024 11:59 PM HYPERCIL CORE TRANSFORMER ASSEMBLER Hospital Encounter Diagnostic Laboratory Center [address] [place] [address], [place] [address] Ceci Nicholson MD Encounter for other preprocedural examination; Atherosclerosis of coronary 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, not otherwise specified; 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 Discharge Disposition: Home 04/09/2024 10:00 AM HYPERCIL CORE TRANSFORMER ASSEMBLER POEM Appointments [facility] [address] [place] [address], 6th [place] [address] Margoth Souza MD 04/09/2024 9:56 AM HYPERCIL CORE TRANSFORMER ASSEMBLER - 04/09/2024 10:47 AM HYPERCIL CORE TRANSFORMER ASSEMBLER Hospital Encounter [facility] [address] [place] [address], 2nd [place] [address] Ceci Nicholson MD Adenocarcinoma of stomach; Hyperlipidemia, not otherwise specified; Encounter for other preprocedural examination; Atherosclerosis of coronary 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, not otherwise specified Discharge Disposition: Home 04/09/2024 9:00 AM HYPERCIL CORE TRANSFORMER ASSEMBLER Consult Perioperative Evaluation and Management [address] [place] [address] Main [facility], 6th [place] [address] Mary Kay Santamaria, Ceci Rooney MD Encounter for other preprocedural examination (Primary Dx); Adenocarcinoma of stomach; Paroxysmal atrial fibrillation; Hypertension; 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; Hyperlipidemia, not otherwise specified; Current use of 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; Atherosclerosis of coronary 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, not otherwise specified 04/09/2024 Travel 04/08/2024 Prep for Surgery [facility] - Surgical Oncology [facility], [address] [place] [address] [place] [address] Mary Kay Santamaria APRN Adenocarcinoma of stomach (Primary Dx); Mass of stomach 04/08/2024 Orders Only [facility] - Surgical Oncology [facility]5 [facility], [address] [place] [address] [place] [address] Mary Kay Santamaria APRN Adenocarcinoma of stomach (Primary Dx); Paroxysmal atrial fibrillation; Hypertension; 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; Hyperlipidemia, not otherwise specified; Current use of 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 04/08/2024 Orders Only [facility] [address] [place] [address], [address] [place], [place] [address] [address] Gillian Gomez PA-C Adenocarcinoma, NOS of stomach, NOS (Primary Dx) 04/06/2024 Orders Only [facility] [address] [place] [address], [facility] [place] [address] Roberto Poole PA 04/06/2024 Orders Only [facility] [address] [place] [address], [facility] [place] [address] Roberto Poole PA Mass of stomach (Primary Dx) 04/06/2024 Orders Only [facility] [address] [place] [address], [facility] [place] [address] Roberto Poole PA Mass of stomach (Primary Dx) 04/06/2024 Telephone [facility] [address] [place] [address], [facility] [place] [address] Anais Meng RN 02/11/2024 Travel 02/10/2024 3:30 PM CDT Telemedicine [facility] [address] [place] [address], 7th [place] [address] Margoth Souza MD Renal mass (Primary Dx) 01/02/2024 7:15 AM CDT Ancillary Procedure MAIN OR [address] [place] [address] Margoth Souza MD 01/02/2024 7:00 AM CDT - 01/02/2024 11:40 AM CDT Surgery MAIN OR [address] [place] [address] Margoth Souza MD ROBOTIC ASSISTED PARTIAL NEPHRECTOMY 01/02/2024 6:58 AM CDT Anesthesia Event MAIN OR [address] [place] [address] Alonzo Liu MD Majekodumi, Jessy, PAXTON 01/02/2024 5:04 AM CDT - 01/03/2024 5:05 PM CDT Hospital Encounter MAIN P09B [address] [place] [address] Margoth Souza MD Renal mass (Primary Dx) Discharge Disposition: Home 01/02/2024 Travel 12/31/2023 1:04 PM CDT - 12/31/2023 11:59 PM CDT Hospital Encounter Main CT IMAGING [address] [place] [address], 3rd [place] [address] Margoth Souza MD Renal mass Discharge Disposition: Home 12/31/2023 8:00 AM CDT Consult Endocrine Center [address] [place] [address], 6th [place] [address] Nakia Kirby APRN Khan, Sonya, MD Type 2 diabetes mellitus with hyperglycemia [E11.65] (Primary Dx); Pre-surgery evaluation 12/30/2023 9:30 AM CDT Office Visit [facility] [address] [place] [address], 7th [place] [address] Margoth Souza MD Renal mass 12/30/2023 Travel 12/30/2023 Telephone Endocrine Center [address] [place] [address], [facility] [place] [address] Winnie Archibald, RN Appointment (Cannot get internet-phone broke) 12/30/2023 Orders Only [facility] [address] [facility], 7th [place] [address] Roberto Poole PA Renal mass (Primary Dx) 12/29/2023 Orders Only Endocrine Center [address] [place] [address], [facility] [place] [address] Veronica Del Castillo APRN 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); Endocrine/metabolic screening; Renal cell carcinoma <Left side> 12/25/2023 8:36 AM CDT Anesthesia Event [facility] [address] [place], [place] [address] [address] Lien Antonio RN 12/23/2023 10:30 AM CDT Consult Perioperative Evaluation and Management [address] [place] [address], [facility] [place] [address] Margoth Souza MD Oh, Jeong, MD Encounter for other preprocedural examination (Primary Dx); Renal mass; Hyperlipidemia, not otherwise specified 12/23/2023 9:00 AM CDT POEM Appointments [facility] [address] [place] [address], [facility] [place] [address] Margoth Souza MD Pre-surgery evaluation (Primary Dx) 12/23/2023 8:45 AM CDT - 12/23/2023 11:59 PM CDT Hospital Encounter [facility] [address] [place] [address] Margoth Souza MD Renal mass Discharge Disposition: Home 12/23/2023 Travel 12/09/2023 9:33 AM CDT - 12/09/2023 11:59 PM CDT Hospital Encounter [facility] [address] [place], [place] [address], [place] [address] Veronica Del Castillo APRN 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; Endocrine/metabolic screening Discharge Disposition: Home 12/09/2023 8:30 AM CDT Consult Endocrine Center [facility]5 [facility], 6th [place] [address] Mary Jane Cassidy MD 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); Endocrine/metabolic screening; Renal cell carcinoma <Left side> 12/09/2023 Travel 10/23/2023 Orders Only [facility] [address] [place] [address], 7th [place] [address] Roberto Poole PA Renal mass (Primary Dx); Adrenal mass 10/03/2023 9:30 AM CDT - 10/03/2023 11:59 PM CDT Hospital Encounter Interventional Radiology [address] [place] [address], 4th [place] [address] Shazia Arriaza MD McRae, Stephen, MD Renal mass Discharge Disposition: Home 10/03/2023 8:30 AM CDT - 10/03/2023 9:29 AM CDT Hospital Encounter [facility] [address] [place] [address] Margoth Souza MD Renal mass Discharge Disposition: Home 10/03/2023 Travel 10/02/2023 8:24 AM CDT - 10/02/2023 11:59 PM CDT Hospital Encounter Interventional Radiology [address] [place] [address], 4th [place] [address] Margoth Souza MD Ho, Conrado-Dannielle Horn, PAJeanC Encounter for other preprocedural examination (Primary Dx); Renal mass; 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 Discharge Disposition: Home 10/02/2023 Travel 09/24/2023 7:46 AM CDT - 09/24/2023 11:59 PM CDT Hospital Encounter [facility] [address] [place] [address] Roberto Poole PA Adrenal mass Discharge Disposition: Home 09/20/2023 Orders Only [facility] [address] [place] [address], 7th [place] [address] Roberto Poole PA Adrenal mass (Primary Dx) 09/19/2023 11:45 AM CDT Ancillary Procedure X-Ray Outpatient Center [address] [place] [address], [facility] [place] [address] Shazia Arriaza MD Renal mass 09/19/2023 9:20 AM CDT - 09/19/2023 11:59 PM CDT Hospital Encounter [facility] [address] [place] [address] Shazia Arriaza MD Adenoma, NOS of adrenal gland, NOS <Left> Discharge Disposition: Home 09/19/2023 Orders Only Interventional Radiology [address] [place] [address], 4th [place] [address] Abilio Ng PA-C Renal mass (Primary Dx) 09/19/2023 Travel 09/19/2023 Telephone [facility] [address] [place] [address] Barbara Rees MA 09/16/2023 4:00 PM CDT - 09/16/2023 11:59 PM CDT Hospital Encounter [facility] [address] [place] [address] Shazia Arriaza MD Renal mass; Adrenal mass Discharge Disposition: Home 09/16/2023 2:00 PM CDT Office Visit [facility] [address] [place] [address], 7th [place] [address] Margoth Souza MD Renal mass (Primary Dx); Adrenal mass; Adenoma, NOS of adrenal gland, NOS <Left>; 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 09/16/2023 12:30 PM CDT NPR MDA PATIENT ACCESS 09/16/2023 Travel 08/08/2023 8:00 PM CDT Ancillary Procedure Image Library [address] [place] [address] Margoth Souza MD Cancer 08/08/2023 6:40 AM CDT Ancillary Procedure Image Library [address] [place] [address] Margoth Souza MD Cancer after 07/27/2023 Surgical History Surgery Date Site/Laterality Comments TOE [...] Service: UROLOGY CORONARY ARTERY BYPASS GRAFT 01/07/2024 AK LAPS ABD PRTM&OMENTUM DX W/WO SPEC BR/WA SPX 04/15/2024 Abdomen/N/A Procedure: ROBOTIC ASSISTED SURGICAL LAPAROSCOPY; Surgeon: John Fong MD; Location: MAIN OR; Service: SURG ONC - GASTRIC/HIPEC Medical devices from this surgery are in the Medical Devices section. AK FLUORO CENTRAL VENOUS ACC ESS DEV PLACEMENT 04/15/2024 Neck/N/A Procedure: FLUORO GUIDANCE FOR CENTRAL VENOUS ACCESS DEVICE PLACEMENT, REPLACEMENT, OR REMOVAL; Surgeon: John Fong MD; Location: MAIN OR; Service: SURG ONC - GASTRIC/HIPEC Medical devices from this surgery are in the Medical Devices section. AK US VASC ACCESS SITS VSL P ATENCY NDL ENTRY 04/15/2024 N/A Procedure: US GUIDANCE WITH EVAL OF POTENTIAL ACCESS SITES, REALTIME US VISUALIZATION OF VASC NEEDLE ENTRY; Surgeon: John Fong MD; Location: MAIN OR; Service: SURG ONC - GASTRIC/HIPEC Medical devices from this surgery are in the Medical Devices section. AK INSJ TUNNELED CTR VAD W/S UBQ PORT AGE 5 YR/> 04/15/2024 Neck/N/A Procedure: PORT-A-CATH PLACEMENT; Surgeon: John Fong MD; Location: MAIN OR; Service: SURG ONC - GASTRIC/HIPEC Medical devices from this surgery are in the Medical Devices section. 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 CORE TRANSFORMER ASSEMBLER Gender Identity Not on file Sexual Orientation Not on file Occupation Industry Job Start Date Job End Date retired from [employer] Not on file N ot on file Not on file Travel History Travel Start Travel End [place] 04/12/2024 04/12/2024 Obstetrics History Last Filed Vital Signs Vital Sign Reading Time Taken Comments Blood Pressure 147/83 07/16/2024 2:11 PM HYPERCIL CORE TRANSFORMER ASSEMBLER Pulse 78 07/16/2024 2:11 PM HYPERCIL CORE TRANSFORMER ASSEMBLER Temperature 36.5 C (97.7 F) 07/16/2024 2:11 PM CS T Respiratory Rate 18 07/16/2024 2:11 PM HYPERCIL CORE TRANSFORMER ASSEMBLER Oxygen Saturation 98% 07/16/2024 2:11 PM HYPERCIL CORE TRANSFORMER ASSEMBLER Inhaled Oxygen Concentration - - Weight 38.7 kg (85 lb 4.8 oz) 07/16/2024 2:11 PM HYPERCIL CORE TRANSFORMER ASSEMBLER Height 188 cm (6' 2") 05/19/2024 11:53 AM HYPERCIL CORE TRANSFORMER ASSEMBLER Body Mass Index 10.95 05/19/2024 11:53 AM HYPERCIL CORE TRANSFORMER ASSEMBLER Plan of Treatment Upcoming Encounters Date Type Department Care Team (Late st Contact Info) Description 08/06/2024 8:30 AM CDT Appointment Diagnostic Laboratory Center [address] [place] [address], [place] [address] Marianela Hutchinson MD [address] [place] [phone] [email or web address] 08/06/2024 9:20 AM CDT Follow-Up Gastrointestinal Center [address] [place] [address], 7th [place] [address] Marianela Hutchinson MD [address] [place] [phone] [email or web address] 08/06/2024 9:45 AM CDT Infusion Ambulatory Treatment [facility] - [facility] [address] [facility], 8th [place] [address] Marianela Hutchinson MD [address] [place] [phone] [email or web address] 08/20/2024 11:30 AM CDT Appointment Diagnostic [facility] Center [address] [place] [address] Marianela Hutchinson MD [address] [place] [phone] [email or web address] 08/20/2024 12:30 PM CDT Infusion Ambulatory Treatment [facility] [place] [address] [place] [address], 8th [place] [address] Marianela Hutchinson MD [address] [place] [address] [email or web address] 09/03/2024 11:30 AM CDT Appointment Diagnostic [facility] [address] [place] [address] Marianela Hutchinson MD [address] [place] [phone] [email or web address] 09/03/2024 12:30 PM CDT Infusion Ambulatory Treatment Omar - [address], 8th [place] [address] Marianela Hutchinson MD [address] [place] [phone] [email or web address] 02/01/2025 11:30 AM CDT Appointment Diagnostic [facility] Center [address] [place] [address] Main [facility], [place] [address] Veronica Del Castillo, FRANK [address] [place] [phone] [email or web address] 02/01/2025 11:45 AM CDT Appointment Main CT IMAGING [address] [place] [address] Main [facility], 3rd [place] [address] Leah Del CastilloJeanZora, DTP OPERATOR [facility] [place] [address] [email or web address] 02/01/2025 3:00 PM CDT Follow-Up Endocrine Center [address] [place] [address], 6th [facility] [place] [address] Mary Jane Cassidy MD [address] [place] [phone] [email or web address] 02/05/2025 10:45 AM CDT Lab [facility] Cancer Center [address] [place] [address] Margoth Souza MD [address] [place] [phone] [email or web address] 02/05/2025 11:15 AM CDT Ancillary Procedure X-Ray Outpatient Center [address] [place] [address] Margoth Souza MD [address] [place] [phone] [email or web address] 02/05/2025 11:55 AM CDT Ancillary Procedure CT Imaging [address] [place] [address], [address] [place] [address] Margoth Souza MD [address] [place] [address] [email or web address] 02/08/2025 2:30 PM CDT Telemedicine [facility] Cancer Center [address] [place] [address], [address] [place] [address] Margoth Souza MD [address] [place], [place] [phone] [email or web address] Health Maintenance Due Date Last Done Comments COVID-19 Vaccine (#1) 01/09/1969 Pneumococcal Vaccine: 50+ Years (1 of 2 - PCV) 983 01/09/1975 Influenza Vaccine (#1) 2024 08/04/2018 Medical Devices Implanted Type Area Business Office Coordinator Device Identifier Shelf Expiration Date Model / Serial / Lot Pwrport, [employer] 6fr - [id number] Implanted:Qty: 1 on 04/15/2024 by John Fong MD at [facility] Implant Right: Neck [employer]ARD [employer] 12/17/2024 [id number] / / [id number] Procedures Procedure Name Priority Date/Time Associated Diagnosis Comments CT CHEST ABDOMEN PELVIS W CONTRAST Routine 07/15/2024 4:38 PM HYPERCIL CORE TRANSFORMER ASSEMBLER Adenocarcinoma of stomach .CBC Routine 07/15/2024 10:01 AM HYPERCIL CORE TRANSFORMER ASSEMBLER Adenocarcinoma of stomach CARCINOEMBRYONIC ANTIGEN Routine 025 10:01 AM HYPERCIL CORE TRANSFORMER ASSEMBLER Adenocarcinoma of stomach LACTATE DEHYDROGENASE Routine 07/15/2024 10:01 AM HYPERCIL CORE TRANSFORMER ASSEMBLER Adenocarcinoma of stomach PHOSPHORUS LEVEL Routine 07/15/2024 10:01 AM HYPERCIL CORE TRANSFORMER ASSEMBLER Adenocarcinoma of stomach MAGNESIUM LEVEL Routine 07/15/2024 10:01 AM HYPERCIL CORE TRANSFORMER ASSEMBLER Adenocarcinoma of stomach COMPREHENSIVE METABOLIC PANEL Routine 10:01 AM HYPERCIL CORE TRANSFORMER ASSEMBLER Adenocarcinoma of stomach COMPLETE BLOOD COUNT W/ DIFFERENTIAL Routine 07/15/2024 10:01 AM HYPERCIL CORE TRANSFORMER ASSEMBLER Adenocarcinoma of stomach RESEARCH PROTOCOL [id number] Routine 07/15 10:01 AM HYPERCIL CORE TRANSFORMER ASSEMBLER Adenocarcinoma of stomach MDA AP IHC WORKUP Routine 07/07/2024 12:29 PM HYPERCIL CORE TRANSFORMER ASSEMBLER Adenocarcinoma of stomach POC GLUCOSE SCREEN Routine 06/30/2024 1:23 PM HYPERCIL CORE TRANSFORMER ASSEMBLER PATHOLOGY BIOPSY INTERPRETATION Routine 06/30/2024 12:51 PM HYPERCIL CORE TRANSFORMER ASSEMBLER Adenocarcinoma of stomach AK ESOPHAGOGASTRODUODENOSCOP Y TRANSORAL DIAGNOSTIC 06/30/2024 12:15 PM HYPERCIL CORE TRANSFORMER ASSEMBLER Adenocarcinoma of stomach Case Notes 06/12 per gene to schedule on 06/30, per tor to schedule 06/30 thru lunch last AM case, slot held to offer. LVM and sent mychart to schedule-DC Special Needs E BUSINESS SPECIALIST CHRIS COMPLETE 06/18.E BUSINESS SPECIALIST CHRIS LVM FOR DAUGHTER WITH DETAILED INSTRUCTIONS FOR PROCEDURE IN ADDITION TO HOLD ON PLAVIX FOR 5 DAYS.E BUSINESS SPECIALISTARTURO PEREZ LVJames 1ST CALL 06/16. 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 POC GLUCOSE SCREEN Routine 06/20/2024 11:06 AM HYPERCIL CORE TRANSFORMER ASSEMBLER .CBC Routine 06/20/2024 10:35 AM HYPERCIL CORE TRANSFORMER ASSEMBLER Adenocarcinoma, NOS of stomach, NOS CARCINOEMBRYONIC ANTIGEN Routine 025 10:35 AM HYPERCIL CORE TRANSFORMER ASSEMBLER Adenocarcinoma, NOS of stomach, NOS LACTATE DEHYDROGENASE Routine 06/20/2024 10:35 AM HYPERCIL CORE TRANSFORMER ASSEMBLER Adenocarcinoma, NOS of stomach, NOS PHOSPHORUS LEVEL Routine 06/20/2024 10:35 AM HYPERCIL CORE TRANSFORMER ASSEMBLER Adenocarcinoma, NOS of stomach, NOS MAGNESIUM LEVEL Routine 06/20/2024 10:35 AM HYPERCIL CORE TRANSFORMER ASSEMBLER Adenocarcinoma, NOS of stomach, NOS COMPREHENSIVE METABOLIC PANEL Routine 10:35 AM HYPERCIL CORE TRANSFORMER ASSEMBLER Adenocarcinoma, NOS of stomach, NOS COMPLETE BLOOD COUNT W/ DIFFERENTIAL Routine 06/20/2024 10:35 AM HYPERCIL CORE TRANSFORMER ASSEMBLER Adenocarcinoma, NOS of stomach, NOS .CBC Routine 06/15/2024 10:39 AM HYPERCIL CORE TRANSFORMER ASSEMBLER Adenocarcinoma of stomach CARCINOEMBRYONIC ANTIGEN Routine 025 10:39 AM HYPERCIL CORE TRANSFORMER ASSEMBLER Adenocarcinoma, NOS of stomach, NOS LACTATE DEHYDROGENASE Routine 06/15/2024 10:39 AM HYPERCIL CORE TRANSFORMER ASSEMBLER Adenocarcinoma, NOS of stomach, NOS PHOSPHORUS LEVEL Routine 06/15/2024 10:39 AM HYPERCIL CORE TRANSFORMER ASSEMBLER Adenocarcinoma, NOS of stomach, NOS MAGNESIUM LEVEL Routine 06/15/2024 10:39 AM HYPERCIL CORE TRANSFORMER ASSEMBLER Adenocarcinoma, NOS of stomach, NOS COMPREHENSIVE METABOLIC PANEL Routine 10:39 AM HYPERCIL CORE TRANSFORMER ASSEMBLER Adenocarcinoma of stomach COMPLETE BLOOD COUNT W/ DIFFERENTIAL Routine 06/15/2024 10:39 AM HYPERCIL CORE TRANSFORMER ASSEMBLER Adenocarcinoma of stomach .CBC Routine 06/01/2024 11:10 AM HYPERCIL CORE TRANSFORMER ASSEMBLER Adenocarcinoma of stomach TRANSFERRIN Routine 06/01/2024 11:10 AM HYPERCIL CORE TRANSFORMER ASSEMBLER Iron deficiency anemia, not otherwise specified Adenocarcinoma of stomach FERRITIN Routine 06/01/2024 11:10 AM HYPERCIL CORE TRANSFORMER ASSEMBLER Iron deficiency anemia, not otherwise specified Adenocarcinoma of stomach IRON LEVEL Routine 06/01/2024 11:10 AM HYPERCIL CORE TRANSFORMER ASSEMBLER Iron deficiency anemia, not otherwise specified Adenocarcinoma of stomach COMPREHENSIVE METABOLIC PANEL Routine 11:10 AM HYPERCIL CORE TRANSFORMER ASSEMBLER Adenocarcinoma of stomach COMPLETE BLOOD COUNT W/ DIFFERENTIAL Routine 06/01/2024 11:10 AM HYPERCIL CORE TRANSFORMER ASSEMBLER Adenocarcinoma of stomach POC GLUCOSE SCREEN Routine 05/19/2024 1:52 PM HYPERCIL CORE TRANSFORMER ASSEMBLER PATHOLOGY BIOPSY INTERPRETATION Routine 05/19/2024 1:10 PM HYPERCIL CORE TRANSFORMER ASSEMBLER Adenocarcinoma of stomach AK ESOPHAGOGASTRODUODENOSCOP Y US SCOPE W/ADJ STRXRS 05/19/2024 12:34 PM HYPERCIL CORE TRANSFORMER ASSEMBLER Adenocarcinoma of stomach Case Notes 04/24- WAITING FOR TRIAGE TO MT FOR 05/01- Special Needs E BUSINESS SPECIALIST Mtichlissa Call Completed 04/30/24ad laproscopy on 04/15/24 POC GLUCOSE SCREEN Routine 05/19/2024 12:21 PM HYPERCIL CORE TRANSFORMER ASSEMBLER .CBC Routine 05/18/2024 10:55 AM HYPERCIL CORE TRANSFORMER ASSEMBLER Adenocarcinoma, NOS of stomach, NOS CARCINOEMBRYONIC ANTIGEN Routine 024 10:55 AM HYPERCIL CORE TRANSFORMER ASSEMBLER Adenocarcinoma, NOS of stomach, NOS LACTATE DEHYDROGENASE Routine 05/18/2024 10:55 AM HYPERCIL CORE TRANSFORMER ASSEMBLER Adenocarcinoma, NOS of stomach, NOS PHOSPHORUS LEVEL Routine 05/18/2024 10:55 AM HYPERCIL CORE TRANSFORMER ASSEMBLER Adenocarcinoma, NOS of stomach, NOS MAGNESIUM LEVEL Routine 05/18/2024 10:55 AM HYPERCIL CORE TRANSFORMER ASSEMBLER Adenocarcinoma, NOS of stomach, NOS COMPREHENSIVE METABOLIC PANEL Routine 10:55 AM HYPERCIL CORE TRANSFORMER ASSEMBLER Adenocarcinoma, NOS of stomach, NOS COMPLETE BLOOD COUNT W/ DIFFERENTIAL Routine 05/18/2024 10:55 AM HYPERCIL CORE TRANSFORMER ASSEMBLER Adenocarcinoma, NOS of stomach, NOS .CBC Routine 05/04/2024 11:34 AM HYPERCIL CORE TRANSFORMER ASSEMBLER Adenocarcinoma, NOS of stomach, NOS RESEARCH PROTOCOL [id number] Routine 05/04 11:34 AM HYPERCIL CORE TRANSFORMER ASSEMBLER Adenocarcinoma of stomach CARCINOEMBRYONIC ANTIGEN Routine 024 11:34 AM HYPERCIL CORE TRANSFORMER ASSEMBLER Adenocarcinoma, NOS of stomach, NOS LACTATE DEHYDROGENASE Routine 05/04/2024 11:34 AM HYPERCIL CORE TRANSFORMER ASSEMBLER Adenocarcinoma, NOS of stomach, NOS PHOSPHORUS LEVEL Routine 05/04/2024 11:34 AM HYPERCIL CORE TRANSFORMER ASSEMBLER Adenocarcinoma, NOS of stomach, NOS MAGNESIUM LEVEL Routine 05/04/2024 11:34 AM HYPERCIL CORE TRANSFORMER ASSEMBLER Adenocarcinoma, NOS of stomach, NOS COMPREHENSIVE METABOLIC PANEL Routine 11:34 AM HYPERCIL CORE TRANSFORMER ASSEMBLER Adenocarcinoma, NOS of stomach, NOS COMPLETE BLOOD COUNT W/ DIFFERENTIAL Routine 05/04/2024 11:34 AM HYPERCIL CORE TRANSFORMER ASSEMBLER Adenocarcinoma, NOS of stomach, NOS VERIFY CATHETER TIP PLACEMENT Routine 3:50 PM HYPERCIL CORE TRANSFORMER ASSEMBLER Adenocarcinoma of stomach POC GLUCOSE SCREEN Routine 04/15/2024 3:21 PM HYPERCIL CORE TRANSFORMER ASSEMBLER XR CHEST 1 VW PORTABLE Routine 2:45 PM HYPERCIL CORE TRANSFORMER ASSEMBLER POC GLUCOSE SCREEN Routine 04/15/2024 1:05 PM HYPERCIL CORE TRANSFORMER ASSEMBLER POC GLUCOSE SCREEN Routine 04/15/2024 12:52 PM HYPERCIL CORE TRANSFORMER ASSEMBLER CYTOLOGY NON-TOOL AND DIE MAKER INTERPRETATION Routine 04/15/2024 12:33 PM HY[employer] CORE TRANSFORMER ASSEMBLER Adenocarcinoma of stomach PATHOLOGY SURGICAL INTERPRETATION Routine 04/15/2024 12:13 PM HY[employer] CORE TRANSFORMER ASSEMBLER Adenocarcinoma of stomach FL CENTRAL VENOUS PLACE EXCHANGE Routine 04/15/2024 11:40 AM HY[employer]IL CORE TRANSFORMER ASSEMBLER Adenocarcinoma of stomach POC GLUCOSE SCREEN Routine 04/15/2024 9:22 AM HYPERCIL CORE TRANSFORMER ASSEMBLER [place] INSJ TUNNELED CTR VAD W/SUBQ PORT AGE 4 YR/> 04/15/2024 9:16 AM HYPERCIL CORE TRANSFORMER ASSEMBLER Adenocarcinoma of stomach Special Needs MTL@0800 [place] US VASC ACCESS SITS VSL PATENCY NDL ENTRY 04/15/2024 9:16 AM HYPERCIL CORE TRANSFORMER ASSEMBLER Adenocarcinoma of stomach Special Needs MTL@0800 [place] FLUORO CENTRAL VENOUS ACCESS DEV PLACEMENT 04/15/2024 9:16 AM HYPER[employer]IL CORE TRANSFORMER ASSEMBLER Adenocarcinoma of stomach Special Needs MTL@0800 [place] LAPS ABD PRTM&OMENTUM DX W/WO SPEC BR/WA SPX 04/15/2024 9:16 AM HY[employer]IL CORE TRANSFORMER ASSEMBLER Adenocarcinoma of stomach Special Needs MTL@0800 CT ABDOMEN PELVIS W CONTRAST Routine 11:18 AM HY[employer]CIL CORE TRANSFORMER ASSEMBLER .CBC Routine 04/12/2024 9:04 AM HY[employer]IL CORE TRANSFORMER ASSEMBLER LIPASE LEVEL Routine 04/12/2024 9:04 AM HYPERCIL CORE TRANSFORMER ASSEMBLER AMYLASE LEVEL Routine 04/12/2024 9:04 AM HYPERCIL CORE TRANSFORMER ASSEMBLER LACTATE DEHYDROGENASE Routine 04/12/2024 9:04 AM HYPERCIL CORE TRANSFORMER ASSEMBLER FRACTIONATED BILIRUBIN Routine 9:04 AM HYPERCIL CORE TRANSFORMER ASSEMBLER PHOSPHORUS LEVEL Routine 04/12/2024 9:04 AM HYPERCIL CORE TRANSFORMER ASSEMBLER MAGNESIUM LEVEL Routine 04/12/2024 9:04 AM HYPER[employer]IL CORE TRANSFORMER ASSEMBLER COMPREHENSIVE METABOLIC PANEL Routine 9:04 AM HYPERCIL CORE TRANSFORMER ASSEMBLER COMPLETE BLOOD COUNT W/ DIFFERENTIAL Routine 04/12/2024 9:04 AM HYPER[employer]IL CORE TRANSFORMER ASSEMBLER .CBC Routine 04/09/2024 11:09 AM HYPERCIL CORE TRANSFORMER ASSEMBLER Encounter for other preprocedural examination Atherosclerosis of coronary 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, not otherwise specified THYROID STIMULATING HORMONE Routine 03/21 11:09 AM HYPERCIL CORE TRANSFORMER ASSEMBLER Encounter for other preprocedural examination Atherosclerosis of coronary 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, not otherwise specified HEMOGLOBIN A1C Routine 04/09/2024 11:09 AM HY[employer]IL CORE TRANSFORMER ASSEMBLER 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 Encounter for other preprocedural examination COMPREHENSIVE METABOLIC PANEL Routine 11:09 AM HY[employer]IL CORE TRANSFORMER ASSEMBLER Encounter for other preprocedural examination Atherosclerosis of coronary 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, not otherwise specified COMPLETE BLOOD COUNT W/ DIFFERENTIAL Routine 04/09/2024 11:09 AM HY[employer] CORE TRANSFORMER ASSEMBLER Encounter for other preprocedural examination Atherosclerosis of coronary 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, not otherwise specified EKG, 12-LEAD (SCHEDULED) Routine 04/09/2024 Adenocarcinoma of stomach Hyperlipidemia, not otherwise specified Encounter for other preprocedural examination Atherosclerosis of coronary 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, not otherwise specified PATHOLOGY OUTSIDE INTERPRETATION Routine 04/02/[address] ABDOMEN AND PELVIS Routine 2023 8:21 AM HY[employer]CIL CORE TRANSFORMER ASSEMBLER Cancer OSI CHEST Routine 03/23/2024 7:37 PM HYPERCIL CORE TRANSFORMER ASSEMBLER Cancer OSI CT CHEST ABDOMEN PELVIS Routine 08/2023 7:37 PM HYPERCIL CORE TRANSFORMER ASSEMBLER Cancer OSI CHEST Routine 03/23/2024 7:37 PM HYPERCIL CORE TRANSFORMER ASSEMBLER Cancer OSI CT CHEST Routine 03/22/2024 8:21 AM HYPERCIL CORE TRANSFORMER ASSEMBLER Cancer OSI CT ABDOMEN AND PELVIS Routine [...] 6:08 AM CDT Renal mass Special Needs [email or web address] [id number]:Please collect and send tissue to pathology window with appropriate label. [place] LAPAROSCOPY SURG PARTIAL NEPHRECTOMY 01/02/2024 6:08 AM CDT Renal mass Special Needs [email or web address] [id number]:Please collect and send tissue to pathology window [...] 09/16/2023 4:23 PM CDT Renal mass after 07/27/2023 Results * CT Chest Abdomen Pelvis with Contrast (07/15/2024 4:38 PM HYPERCIL CORE TRANSFORMER ASSEMBLER) Anatomical Region Laterality Modality Abdomen, Pelvis, Chest Computed Tomography 07/15/2024 5:39 PM HYPER[employer]IL CORE TRANSFORMER ASSEMBLER Impressions 07/15/2024 9:45 PM HYPERCIL CORE TRANSFORMER ASSEMBLER 1. Redemonstration of diffuse wall thickening of [...] and potentially actionable. Narrative 07/15/2024 9:45 PM HYPERCIL CORE TRANSFORMER ASSEMBLER FULL RESULT: Examination: CT CHEST ABDOMEN PELVIS [...] CT ORDERABLES Final Result * Research Protocol [id number] (07/15/2024 10:01 AM HYPERCIL CORE TRANSFORMER ASSEMBLER) Only the most recent of2 resultswithin the time period is included. Research Protocol Specimen Specimen Collected, Ready for Pickup. 07/15/2024 12:00 PM HYPERCIL CORE TRANSFORMER ASSEMBLER [place] MD [facility] Blood Venipuncture / Unknown 07/15/2024 10:01 AM HYPERCIL CORE TRANSFORMER ASSEMBLER 07/15/2024 10:10 AM HYPERCIL CORE TRANSFORMER ASSEMBLER Marianela Hutchinson MD [facility] Z CODES Final Re sult [facility] Unless otherwise noted, all lab tests performed by: Division of Pathology and Laboratory Medicine [facility] [place] [address] * (ABNORMAL) .CBC (07/15/2024 10:01 AM [facility]) Only the most recent of11 resultswithin the time period is included. White Blood Cell 6.7 4.1 - 10.5 K/uL 07/15/2024 10:33 AM [facility] Red Blood Cell 4.91 4.30 - 6.04 M/uL 07/15/2024 10:33 AM [facility] Hemoglobin 12.4(L) 13.3 - 17.4 g/dL 07/15/2024 10:33 AM [facility] Hematocrit 37.8(L) 39.5 - 51.8 % 07/15/2024 10:33 AM [facility] Mean Cell Volume 77(L) 82 - 99 fL 07/15/2024 10:33 AM [facility] Mean Cell Hemoglobin 25.3(L) 26.6 - 33.2 pg 07/15/2024 10:33 AM [facility] Mean Cell Hemoglobin Concentration 32.8 31.1 - 35.2 g/dL 07/15/2024 10:33 AM [facility] RDW-SD 40.9 37.5 - 49.7 fL 07/15/2024 10:33 AM [facility] Red Cell Diameter Width 14.8 11.6 - 15.5 % 07/15/2024 10:33 AM [facility] Platelet 226 160 - 397 K/uL 07/15/2024 10:33 AM [facility] Mean Platelet Volume 9.6 9.1 - 12.6 fL 07/15/2024 10:33 AM [facility] INRBC 0.0 0.0 - 0.1 /100 WBC 07/15/2024 10:33 AM [facility] Comment: The INRBC (instrument NRBC) value reflects the enumeration of nucleated red blood cells contained in a 200uL sample of whole blood analyzed by the instrument. This value may differ from the NRBC value reported in a manual differential, which is based on a 100 cell differential. Neutrophil % 63.5 43.2 - 72.7 % 07/15/2024 10:33 AM [facility] Lymphocyte % 25.4 16.8 - 46.2 % 07/15/2024 10:33 AM [facility] Monocyte % 8.5 5.1 - 12.5 % 07/15/2024 10:33 AM [facility] Eosinophil % 2.1 0.4 - 6.3 % 07/15/2024 10:33 AM [facility] Basophil % 0.4 0.2 - 1.4 % 07/15/2024 10:33 AM [facility] IGRE % 0.1 0.1 - 1.5 % 07/15/2024 10:33 AM [facility] Comment:The IGRE% includes M etamyelocytes, Myelocytes and Promyelocytes. Neutrophil Abs 4.25 1.95 - 7.25 K/uL 07/15/2024 10:33 AM [facility] Lymphocyte Abs 1.70 1.01 - 3.24 K/uL 07/15/2024 10:33 AM [facility] Monocyte Abs 0.57 0.24 - 0.85 K/uL 07/15/2024 10:33 AM [facility] Eosinophil Abs 0.14 0.02 - 0.50 K/uL 07/15/2024 10:33 AM [facility] Basophil Abs 0.03 0.02 - 0.09 K/uL 07/15/2024 10:33 AM [facility] IG Abs 0.01 0.01 - 0.12 K/uL 07/15/2024 10:33 AM [facility] Blood Peripheral blood specimen / Unknown Venipuncture / Unknown 07/15/2024 10:01 AM [facility] 07/15/2024 10:09 AM [facility] us Gillian Gomez PA-C LAB BLOOD ORDERABLES Final Result [facility] Unless otherwise noted, all lab tests performed by: Division of Pathology and Laboratory Medicine [address] [place] [address] * (ABNORMAL) CMP (07/15/2024 10:01 AM [facility]) Only the most recent of10 resultswithin the time period is included. Bilirubin Total 0.4 0.0 - 1.2 mg/dL 07/15/2024 11:15 AM [facility] Comment:Indocyanine Green (I CG) may cause falsely elevated bilirubin results. Total and direct bilirubin must not be measured from samples containing indocyanine green. False elevation of total bilirubin can be seen in patients with IgG concentrations above 28 g/L. eGFR 98 >=60 mL/min/1. 73 sq. m 07/15/2024 11:15 AM [facility] Comment: The eGFRcr is calculated with the [...] 6.4 - 8.3 gm/dL 07/15/2024 11:15 AM [facility] Calcium Level Total 9.6 8.2 - 10.2 mg/dL 07/15/2024 11:15 AM [facility] Alkaline Phosphatase 117 40 - 129 U/L 07/15/2024 11:15 AM [facility] Albumin Level 4.4 3.5 - 5.2 gm/dL 07/15/2024 11:15 AM [facility] AST 22 <=40 U/L 07/15/2024 11:15 AM [facility] ALT 13 <=41 U/L 07/15/2024 11:15 AM [facility] Sodium Level 138 136 - 145 mmol/L 07/15/2024 11:15 AM [facility] Potassium Level 4.1 3.4 - 4.5 mmol/L 07/15/2024 11:15 AM [facility] Chloride 101 98 - 107 mmol/L 07/15/2024 11:15 AM [facility] CO2 27 22 - 29 mmol/L 07/15/2024 11:15 AM [facility] Anion Gap 10 4 - 14 mmol/L 07/15/2024 11:15 AM [facility] Creatinine 0.90 0.67 - 1.17 mg/dL 07/15/2024 11:15 AM [facility] BUN 10 6 - 23 mg/dL 07/15/2024 11:15 AM [facility] Glucose Level 181(H) 70 - 99 mg/dL 07/15/2024 11:15 AM [facility] Comment: Effective 12/14/15, the glucose reference intervals have been updated based on [place] [employer] guidelines (Standards of Medical Care [...] Unknown Venipuncture / Unknown 07/15/2024 10:01 AM HY[employer]CIL CORE TRANSFORMER ASSEMBLER 07/15/2024 10:09 AM [facility] Gillian Gomez PA-C LAB BLOOD ORDERABLES Final Result [facility] Unless otherwise noted, all lab tests performed by: Division of Pathology and Laboratory Medicine [address] [place] [address] * Phosphorus Level (07/15/2024 10:01 AM HYPERCIL CORE TRANSFORMER ASSEMBLER) Only the most recent of6 resultswithin the time period is included. Phosphorus Level 2.7 2.5 - 4.5 mg/dL 07/15/2024 11:15 AM HYPERCIL CORE TRANSFORMER ASSEMBLER [facility] Blood Peripheral blood specimen / Unknown Venipuncture / Unknown 07/15/2024 10:01 AM HY[employer] CORE TRANSFORMER ASSEMBLER 07/15/2024 10:09 AM HYPERCIL CORE TRANSFORMER ASSEMBLER Gillian Gomez PA-C LAB BLOOD ORDERABLES Final Result [facility] Unless otherwise noted, all lab tests performed by: Division of Pathology and Laboratory Medicine [address] [place] [phone] * Magnesium Level (07/15/2024 10:01 AM HYPERCIL CORE TRANSFORMER ASSEMBLER) Only the most recent of6 resultswithin the time period is included. Magnesium Level 1.8 1.6 - 2.6 mg/dL 07/15/2024 11:15 AM HYPERCIL CORE TRANSFORMER ASSEMBLER [facility] Blood Peripheral blood specimen / Unknown Venipuncture / Unknown 07/15/2024 10:01 AM HYPERCIL CORE TRANSFORMER ASSEMBLER 07/15/2024 10:09 AM HYPERCIL CORE TRANSFORMER ASSEMBLER Gillian Gomez PA-C LAB BLOOD ORDERABLES Final Result Performing Organization Address City/[facility]/ZIP Co de Phone Number [facility] Unless otherwise noted, all lab tests performed by: Division of Pathology and Laboratory Medicine [address] [place] [phone] * LDH (07/15/2024 10:01 AM HYPERCIL CORE TRANSFORMER ASSEMBLER) Only the most recent of6 resultswithin the time period is included. LDH 202 135 - 225 U/L 07/15/2024 11:15 AM HYPERCIL CORE TRANSFORMER ASSEMBLER [facility] Blood Peripheral blood specimen / Unknown Venipuncture / Unknown 07/15/2024 10:01 AM HYPERCIL CORE TRANSFORMER ASSEMBLER 07/15/2024 10:09 AM HYPERCIL CORE TRANSFORMER ASSEMBLER Narrative [facility] - 07/15/2024 11:15 AM HYPERCIL CORE TRANSFORMER ASSEMBLER Results greater than 1651 U/L may not be reliable due to matrix effect with extended dilution as it exceeds the medical collector's recommended limit. Caution should be exercised when interpreting such values and done in conjunction with clinical context. Gillian Gomez PA-C LAB BLOOD ORDERABLES Final Result Performing Organization Address City/[facility]/ZIP Co de Phone Number [facility] Unless otherwise noted, all lab tests performed by: Division of Pathology and Laboratory Medicine [address] [place] [phone] * CEA (07/15/2024 10:01 AM HYPERCIL CORE TRANSFORMER ASSEMBLER) Only the most recent of5 resultswithin the time period is included. Carcinoembryonic Antigen 3.0 <=3.8 ng/mL 07/15/2024 11:26 AM HYPERCIL CORE TRANSFORMER ASSEMBLER [facility] Blood Peripheral blood specimen / Unknown Venipuncture / Unknown 07/15/2024 10:01 AM HYPERCIL CORE TRANSFORMER ASSEMBLER 07/15/2024 10:09 AM HYPERCIL CORE TRANSFORMER ASSEMBLER Narrative [facility] - 07/15/2024 11:26 AM HYPERCIL CORE TRANSFORMER ASSEMBLER Reference Ranges (age 20-69 years): Non-smoker: <= 3.8 ng/mL Smoker: <= 5.5 ng/mL This test is measured by electrochemiluminescence immunoassay on Cornelius Nikki immunoassay analyzers. Results obtained in different methods are not interchangeable. Gillian Gomez PA-C LAB BLOOD ORDERABLES Final Result Performing Organization Address [facility] Co de Phone Number [facility] Unless otherwise noted, all lab tests performed by: Division of Pathology and Laboratory Medicine [address] [place] [phone] * IHC Workup (07/07/2024 12:29 PM HYPERCIL CORE TRANSFORMER ASSEMBLER) Tissue 07/07/2024 12:2 9 PM HYPERCIL CORE TRANSFORMER ASSEMBLER 07/07/2024 12:29 PM HYPERCIL CORE TRANSFORMER ASSEMBLER Gillian Gomez PA-C [facility] ORDERABLE S Final Result Performing Organization Address City/[facility]/ZIP Co de Phone Number [facility] [place] [address] [place] [address], [place] * (ABNORMAL) POC Glucose Screen - Fingerstick (06/30/2024 1:23 PM HYPERCIL CORE TRANSFORMER ASSEMBLER) Only the most recent of24 resultswithin the time period is included. Glucose Screen 168(H) 70 - 99 mg/dL 06/30/2024 1:25 PM HYPERCIL CORE TRANSFORMER ASSEMBLER [facility] POC Sample Type Capillary 06/30/2024 1:25 PM HYPERCIL CORE TRANSFORMER ASSEMBLER [facility] Blood 06/30/2024 1:23 PM HYPERCIL CORE TRANSFORMER ASSEMBLER 06/30/2024 1:25 PM HYPERCIL CORE TRANSFORMER ASSEMBLER Narrative [facility] - 06/30/2024 1:25 PM HYPERCIL CORE TRANSFORMER ASSEMBLER Capillary blood samples, e.g. obtained by fingerstick, [...] POCT ORDERABLES - DE VICE Final Result [facility] Unless otherwise noted, all lab tests performed by: Division of Pathology and Laboratory Medicine [address] [place] [phone] * Pathology Biopsy Interpretation (06/30/2024 12:51 PM HYPERCIL CORE TRANSFORMER ASSEMBLER) Only the most recent of3 resultswithin the time period is included. Addendum 1 By immunohistochemistry, approximately 10% of the tumor cells show weakly to moderately cytoplasmic staining for claudin 18. By immunohistochemistry the combined positive score (CPS) for PD-L1 is <1. 07/10/2024 8:47 AM HYPERCIL CORE TRANSFORMER ASSEMBLER 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 07/10/2024 8:47 AM [facility] Gross Description A: Esophagus, lower esophageal ulcer at 37cm: Multiple soft light castillo tissue fragments, 0.7 x 0.6 x 0.1 cm in aggregate, entirely submitted in A1. ET 07/10/2024 8:47 AM [facility] Biomarker Block(s) Block for biomarker testing: A1 07/10/2024 8:47 AM [facility] Disclaimer "Some tests reported here may have been developed and performance characteristics determined by [facility] Pathology and Laboratory Medicine. These tests have not been specifically cleared or approved by the U.S. Food and Drug Administration. If applicable, controls were reviewed and showed appropriate reactivity." 07/10/2024 8:47 AM [facility] Tissue (Esophagus) 06/30/2024 12:51 PM HYPERCIL CORE TRANSFORMER ASSEMBLER 06/30/2024 2:51 PM HYPERCIL CORE TRANSFORMER ASSEMBLER us Brandon Galo MD LAB PATHOLOGY ORDERA ANDRESS Edited Result - Final [facility] [address] [place] [address], [place] * (ABNORMAL) POC Chem 8 (06/30/2024 11:10 AM HYPERCIL CORE TRANSFORMER ASSEMBLER) Only the most recent of2 resultswithin the time period is included. POC Sodium 136(L) 138 - 146 mmol/L 06/30/2024 11:13 AM [facility] POC Potassium 4.5 3.5 - 4.9 mmol/L 06/30/2024 11:13 AM [facility] POC Chloride 100 98 - 109 mmol/L 06/30/2024 11:13 AM [facility] POC VTCO2 27 24 - 29 mmol/L 06/30/2024 11:13 AM [facility] POC Anion Gap 14 10 - 20 mmol/L 06/30/2024 11:13 AM [facility] POC BUN 30(H) 8 - 26 mg/dL 06/30/2024 11:13 AM [facility] POC Creatinine 1.1 0.6 - 1.3 mg/dL 06/30/2024 11:13 AM [facility] Comment:Medications, especia lly hydroxyurea or supplements, such as ascorbate, can interfere with test results causing a falsely and significantly higher result than expected. If a problem is suspected with a patient's result, a sample should be sent to the laboratory for confirmatory testing. POC I Glu 182(H) 70 - 99 mg/dL 06/30/2024 11:13 AM [facility] Comment:Medications, especia lly hydroxyurea or supplements, such as ascorbate, can interfere with test results causing a falsely and significantly higher result than expected. If a problem is suspected with a patient's result, a sample should be sent to the laboratory for confirmatory testing. POC Ionized Calcium 1.26 1.12 - 1.32 mmol/L 06/30/2024 11:13 AM [facility] POC Hct 39.0 38.0 - 51.0 % 06/30/2024 11:13 AM [facility] POC Hgb 13.3 12.0 - 17.0 gm/dL 06/30/2024 11:13 AM [facility] Comment:Hematocrit values fr om the iSTAT are [...] standard. POC Sample Type Venous 11:13 AM [facility] POC eGFR 77 >=60 mL/min/1.7 3 sq. m 06/30/2024 11:13 AM [facility] Comment: The eGFRcr is calculated with the [...] for CKD. Blood 06/30/2024 11:1 0 AM HY[employer] CORE TRANSFORMER ASSEMBLER 06/30/2024 11:13 AM HYPERCIL CORE TRANSFORMER ASSEMBLER Narrative [facility] - 06/30/2024 11:13 AM HYPERCIL CORE TRANSFORMER ASSEMBLER Method description: The i-STAT is an analyzer [...] DE VICE Final Result Performing Organization Address [facility] Co de Phone Number [facility] Unless otherwise noted, all lab tests performed by: Division of Pathology and Laboratory Medicine [address] [place] [phone] * EKG, 12-Lead (Scheduled) (06/29/2024) Only the most recent of3 resultswithin the time period is included. Mary Kay Santamaria APRN ECG ORDERABLES Final R esult Performing Organization Address [facility]/ZIP Co de Phone Number [facility] * PETCT F18 FDG (Fluorodeoxyglucose) with contrast (06/20/2024 12:42 PM HYPERCIL CORE TRANSFORMER ASSEMBLER) Anatomical Region Laterality Modality Whole Body Positron Emissio n Tomography (PET) 06/20/2024 3:10 PM HYPERCIL CORE TRANSFORMER ASSEMBLER Impressions 06/20/2024 4:38 PM HYPERCIL CORE TRANSFORMER ASSEMBLER Biopsy-proven malignancy in the region of the [...] and potentially actionable. Narrative 06/20/2024 4:38 PM HYPERCIL CORE TRANSFORMER ASSEMBLER FULL RESULT: Examination: 18F-FDG-PET/CT with contrast, 06/20/2024 [...] * Transferrin with TIBC (06/01/2024 11:10 AM HYPERCIL CORE TRANSFORMER ASSEMBLER) Transferrin 211 200 - 360 mg/dL 06/01/2024 12:15 PM HYPERCIL CORE TRANSFORMER ASSEMBLER [facility] Total Iron Binding Capacity 295 250 - 450 mcg/dL 06/01/2024 12:15 PM HYPERCIL CORE TRANSFORMER ASSEMBLER [facility] Blood Peripheral blood specimen / Unknown Venipuncture / Unknown 06/01/2024 11:10 AM HY[employer]CIL CORE TRANSFORMER ASSEMBLER 06/01/2024 11:23 AM HYPERCIL CORE TRANSFORMER ASSEMBLER Marianela Hutchinson MD LAB BLOOD ORDERABLES Final Re sult [facility] Unless otherwise noted, all lab tests performed by: Division of Pathology and Laboratory Medicine [address] [place] [phone] * (ABNORMAL) Iron Level (06/01/2024 11:10 AM HYPERCIL CORE TRANSFORMER ASSEMBLER) Iron Level 38(L) 59 - 158 mcg/dL 06/01/2024 12:15 PM HYPERCIL CORE TRANSFORMER ASSEMBLER [facility] Is patient fasting? No 06/01/2024 12:15 PM HYPERCIL CORE TRANSFORMER ASSEMBLER [facility] Blood Peripheral blood specimen / Unknown Venipuncture / Unknown 06/01/2024 11:10 AM HYPERCIL CORE TRANSFORMER ASSEMBLER 06/01/2024 11:23 AM HYPERCIL CORE TRANSFORMER ASSEMBLER Marianela Hutchinson MD LAB BLOOD ORDERABLES Final Re sult Performing Organization Address [facility]/ZIP Co de Phone Number [facility] Unless otherwise noted, all lab tests performed by: Division of Pathology and Laboratory Medicine [address] [place] [address] Unless otherwise noted, all lab tests performed by: Division of Pathology and Laboratory Medicine [address] [place] [phone] * Ferritin Level (06/01/2024 11:10 AM HYPERCIL CORE TRANSFORMER ASSEMBLER) Ferritin Level 59 30 - 400 ng/mL 06/01/2024 12:15 PM HYPERCIL CORE TRANSFORMER ASSEMBLER [facility] Blood Peripheral blood specimen / Unknown Venipuncture / Unknown 06/01/2024 11:10 AM HYPERCIL CORE TRANSFORMER ASSEMBLER 06/01/2024 11:23 AM HYPERCIL CORE TRANSFORMER ASSEMBLER Narrative [facility] - 06/01/2024 12:15 PM HYPERCIL CORE TRANSFORMER ASSEMBLER Reference range established for age 20 - 60 years Marianela Hutchinson MD LAB BLOOD ORDERABLES Final Re sult [facility] Unless otherwise noted, all lab tests performed by: Division of Pathology and Laboratory Medicine [address] [place] [address] * Tip Verification Central Vascular Access Device (04/15/2024 3:50 PM HYPERCIL CORE TRANSFORMER ASSEMBLER) Narrative John Fong MD - 04/15/2024 3:50 PM HYPERCIL CORE TRANSFORMER ASSEMBLER John Fong MD 04/15/2024 3:50 PM Central Vascular Access Device Tip Verification Performed by: John Fong MD Authorized by: John Fong MD CVAD Properties Date device placed: 04/15/2024 Device placement location: [facility] Catheter Type: Implanted venous port Catheter lumen: Single lumen Vein location: Internal jugular vein Laterality: Right Tip in good position and cleared for infusion us John Fong MD IV THERAPY ORDERABLES Final Re sult * XR Chest 1 View Portable (04/15/2024 2:45 PM HYPERCIL CORE TRANSFORMER ASSEMBLER) Anatomical Region Laterality Modality Chest Digital Radiogra phy 04/15/2024 2:50 PM HYPERCIL CORE TRANSFORMER ASSEMBLER Impressions 04/15/2024 2:53 PM HYPERCIL CORE TRANSFORMER ASSEMBLER 1. Right infusion port catheter terminates over [...] and potentially actionable. Narrative 04/15/2024 2:53 PM HYPERCIL CORE TRANSFORMER ASSEMBLER FULL RESULT: Examination: XR CHEST 1 VW [...] IMAGING ORDERAB LES Final Result * Cytology Non-Bowl Turner Interpretation (04/15/2024 12:33 PM HYPERCIL CORE TRANSFORMER ASSEMBLER) Gross Description 4 Pap Stain Slides 750 ml. clear yellow fluid Specimen concentrated by cytocentrifugation technique 4 4:07 PM HYPERCIL CORE TRANSFORMER ASSEMBLER [facility] Major Classification [facility]/benign 4 4:07 PM HYPERCIL CORE TRANSFORMER ASSEMBLER [facility] Diagnosis Peritoneal washing: No metastatic carcinoma identified Reactive mesothelial cells and histiocytes 4 4:07 PM HYPERCIL CORE TRANSFORMER ASSEMBLER [facility] Retained/Biomark er Testing SR:4S 4 4:07 PM HYPERCIL CORE TRANSFORMER ASSEMBLER [facility] Informational Points Some tests reported here may have been developed and performance characteristics determined by [facility]. These tests have not been specifically cleared or approved by the U.S. Food and Drug Administration. 4:07 PM HYPERCIL CORE TRANSFORMER ASSEMBLER [facility] Washing (Peritoneal Washing) 04/15/2024 12:33 PM HYPERCIL CORE TRANSFORMER ASSEMBLER 04/15/2024 1:10 PM HYPERCIL CORE TRANSFORMER ASSEMBLER John Fong MD LAB CYTOLOGY ORDERABLES Final Result Performing Organization Address City/[facility]/ZIP Co de Phone Number [address] [address], [place] * Pathology Surgical Interpretation (04/15/2024 12:13 PM HYPERCIL CORE TRANSFORMER ASSEMBLER) Only the most recent of2 resultswithin the time period is included. Submitted Clinical History Adenocarcinoma of stomach [C16.9] 04/20/2024 8:13 PM HYPERCIL CORE TRANSFORMER ASSEMBLER [facility] Diagnosis A. Falciform ligament, resection: Fibroadipose tissue, no tumor present 04/20/2024 8:13 PM HYPERCIL CORE TRANSFORMER ASSEMBLER [facility] Gross Description A: Falciform ligament, falciorm ligament biopsy....or 16: Consists of a fragment of castillo-yellow, lobulated fat (0.8 x 0.6 x 0.5 cm) entirely submitted in cassette A1. EF 04/20/2024 8:13 PM HYPERCIL CORE TRANSFORMER ASSEMBLER [facility] Disclaimer "Some tests reported here may have been developed and performance characteristics determined by [facility]. These tests have not been specifically cleared or approved by the U.S. Food and Drug Administration. If applicable, controls were reviewed and showed appropriate reactivity." 04/20/2024 8:13 PM HYPERCIL CORE TRANSFORMER ASSEMBLER [facility] Tissue (Falciform Ligament) 04/15/2024 12:13 PM HYPERCIL CORE TRANSFORMER ASSEMBLER 04/15/2024 1:18 PM HYPERCIL CORE TRANSFORMER ASSEMBLER John Fong MD LAB PATHOLOGY ORDERABLES Final Result Performing Organization Address City/[facility]/ZIP Co de Phone Number [address] [address], [place] * [place] [facility] Exchange (04/15/2024 11:40 AM HYPERCIL CORE TRANSFORMER ASSEMBLER) Narrative Systemgenerated, Documentation - 04/15/2024 11:40 AM HYPERCIL CORE TRANSFORMER ASSEMBLER This procedure requires no interpretation from the radiologist. us John Fong MD IMG FLUOROSCOPY ORDERABLES Fin al Result * CT Abdomen Pelvis with IV Contrast (04/12/2024 11:18 AM HYPERCIL CORE TRANSFORMER ASSEMBLER) Anatomical Region Laterality Modality Abdomen, Pelvis Computed Tomogra phy 04/12/2024 11:5 2 AM HYPERCIL CORE TRANSFORMER ASSEMBLER Impressions 04/12/2024 12:11 PM HYPERCIL CORE TRANSFORMER ASSEMBLER Wall thickening and slight mucosal irregularity of [...] and potentially actionable. Narrative 04/12/2024 12:11 PM HYPERCIL CORE TRANSFORMER ASSEMBLER FULL RESULT: Examination: CT ABDOMEN PELVIS W [...] Result * Fractionated Bilirubin (04/12/2024 9:04 AM [facility]) Pathologist [facility] Bilirubin Direct 04/12/20 9:47 AM [facility] Comment: Direct and indirect bilirubin will not be reported when Total bilirubin result is <0.3 mg/dL Indocyanine Green (ICG) may cause falsely elevated bilirubin results. Total and direct bilirubin must not be measured from samples containing indocyanine green. Bilirubin Indirect 2023 9:47 AM [facility] Comment:Direct and indirect bilirubin will not be reported when Total bilirubin result is <0.3 mg/dL Bilirubin Total <0.3 0.0 - 1.2 mg/dL 04/12/2024 9:47 AM [facility] Comment: Direct and indirect bilirubin will not [...] Unknown Venipuncture / Unknown 04/12/2024 9:04 AM HYPERCIL CORE TRANSFORMER ASSEMBLER 04/12/2024 9:08 AM [facility] Nghia Zhu MD LAB BLOOD ORDERABLES Final Resu lt [facility] Unless otherwise noted, all lab tests performed by: Division of Pathology and Laboratory Medicine [address] [place] [address] * (ABNORMAL) Lipase (04/12/2024 9:04 AM HYPERCIL CORE TRANSFORMER ASSEMBLER) Lipase Level 311(H) 13 - 60 U/L 04/12/2024 10:09 AM HYPERCIL CORE TRANSFORMER ASSEMBLER [facility] Blood Peripheral blood specimen / Unknown Venipuncture / Unknown 04/12/2024 9:04 AM HYPERCIL CORE TRANSFORMER ASSEMBLER 04/12/2024 9:08 AM HYPERCIL CORE TRANSFORMER ASSEMBLER Narrative [facility] - 04/12/2024 10:09 AM HYPERCIL CORE TRANSFORMER ASSEMBLER Reference range established based on adult population Nghia Zhu MD LAB BLOOD ORDERABLES Final Resu lt Performing Organization Address [facility] Co de Phone Number [facility] Unless otherwise noted, all lab tests performed by: Division of Pathology and Laboratory Medicine [address] [place] [address] * (ABNORMAL) Amylase (04/12/2024 9:04 AM HYPERCIL CORE TRANSFORMER ASSEMBLER) Amylase Level 171(H) 28 - 100 U/L 04/12/2024 9:47 AM HYPERCIL CORE TRANSFORMER ASSEMBLER [facility] Blood Peripheral blood specimen / Unknown Venipuncture / Unknown 04/12/2024 9:04 AM HYPERCIL CORE TRANSFORMER ASSEMBLER 04/12/2024 9:08 AM HYPERCIL CORE TRANSFORMER ASSEMBLER us Nghia Zhu MD LAB BLOOD ORDERABLES Final Resu lt [facility] Unless otherwise noted, all lab tests performed by: Division of Pathology and Laboratory Medicine [address] [place] [address] * TSH (04/09/2024 11:09 AM HYPERCIL CORE TRANSFORMER ASSEMBLER) Only the most recent of2 resultswithin the time period is included. Thyroid Stimulating Hormone 1.53 0.27 - 4.20 mcunit/mL 04/09/2024 12:23 PM HYPERCIL CORE TRANSFORMER ASSEMBLER [facility] Blood Peripheral blood specimen / Unknown Venipuncture / Unknown 04/09/2024 11:09 AM HYPERCIL CORE TRANSFORMER ASSEMBLER 04/09/2024 11:19 AM HYPERCIL CORE TRANSFORMER ASSEMBLER Ceci Nicholson MD LAB BLOOD ORDERABLES Final Resu lt Performing Organization Address [facility] de Phone Number [facility] Unless otherwise noted, all lab tests performed by: Division of Pathology and Laboratory Medicine [address] [place] [address] * (ABNORMAL) Hemoglobin A1c (04/09/2024 11:09 AM HYPERCIL CORE TRANSFORMER ASSEMBLER) Only the most recent of3 resultswithin the time period is included. Hemoglobin A1c 7.0(H) 4.3 - 5.6 % 04/09/2024 12:14 PM HYPERCIL CORE TRANSFORMER ASSEMBLER [facility] Blood Peripheral blood specimen / Unknown Venipuncture / Unknown 04/09/2024 11:09 AM HYPERCIL CORE TRANSFORMER ASSEMBLER 04/09/2024 11:19 AM HYPERCIL CORE TRANSFORMER ASSEMBLER Narrative [facility] - 04/09/2024 12:14 PM HYPERCIL CORE TRANSFORMER ASSEMBLER HbA1c values >=6.5% are diagnostic of diabetes mellitus. Diagnosis should be confirmed by repeat testing. Therapeutic Action suggested: >8.0% HbA1c; Goal of therapy: <7.0% HbA1c Ceci Nicholson MD LAB BLOOD ORDERABLES Final Resu lt Performing Organization Address [facility] de Phone Number [facility] Unless otherwise noted, all lab tests performed by: Division of Pathology and Laboratory Medicine [address] [place] [address] * Pathology Outside Interpretation (04/02/2024) Materials Received Accession#, Stained, Block, Unstained Collected Received A. [id number], 20 SS, 0 BLOCKS, 0 USS 04/02/2024 04/22/2024 04/22/2024 5:36 PM HYPERCIL CORE TRANSFORMER ASSEMBLER [facility] Diagnosis Outside ([id number], 20 SS, 0 BLOCKS, 0 USS, collected [...] FEATURES. See comment. FY/ISAURO 04/22/2024 5:36 PM [facility] Comment Part A. There is no evidence of malignancy on H&E and immunohistochemical stain for Cytokeratin AE1/AE3. Of note, the biopsy may not be technical account representative of the entire lesion. Please correlate [...] immunohistochemistry: Negative (Score: 0) 04/22/2024 5:36 PM [facility] [employer] Biomarker Block(s) Block for biomarker testing: C1 Normal block: N/A 04/22/2024 5:36 PM [facility] [employer] Disclaimer "Some tests reported here may have been developed and performance characteristics determined by [facility]. These tests have not been specifically cleared or approved by the U.S. Food and Drug Administration. If applicable, controls were reviewed and showed appropriate reactivity." 04/22/2024 5:36 PM [facility] [employer] Tissue 04/02/2024 04/22/2024 6:4 0 AM HYPERCIL CORE TRANSFORMER ASSEMBLER us Sybil Edmonds MD LAB PATHOLOGY ORDERABLES Final R esult [facility] [address] [place] [address], [place] * OSI CT Abdomen and Pelvis (04/01/2024 8:21 AM HYPERCIL CORE TRANSFORMER ASSEMBLER) Only the most recent of2 resultswithin the time period is included. Narrative Systemgenerated, Documentation - 04/27/2024 8:22 AM HYPERCIL CORE TRANSFORMER ASSEMBLER Study acquired at another institution. For comparison only. No MD Shawna originated interpretation requested or available. [facility] Regan Zhu DO IMG OUTSIDE IMAGE ORDERAB LES Final Result * OSI CT CHEST ABDOMEN PELVIS (03/23/2024 7:37 PM HYPERCIL CORE TRANSFORMER ASSEMBLER) Narrative Systemgenerated, Documentation - 04/09/2024 7:37 PM HYPERCIL CORE TRANSFORMER ASSEMBLER Study acquired at another institution. For comparison only. No [facility] originated interpretation requested or available. Margoth Souza MD IMG OUTSIDE IMAGE ORDERABLES Fin al Result * OSI Chest (03/23/2024 7:37 PM HYPERCIL CORE TRANSFORMER ASSEMBLER) Only the most recent of4 resultswithin the time period is included. Narrative Systemgenerated, Documentation - 04/09/2024 7:37 PM HYPERCIL CORE TRANSFORMER ASSEMBLER Study acquired at another institution. For comparison only. No [facility] originated interpretation requested or available. Margoth Souza MD IMG OUTSIDE IMAGE ORDERABLES Fin al Result * OSI CT Chest (03/22/2024 8:21 AM HYPERCIL CORE TRANSFORMER ASSEMBLER) Narrative Systemgenerated, Documentation - 04/27/2024 8:21 AM HYPERCIL CORE TRANSFORMER ASSEMBLER Study acquired at another institution. For comparison only. No [facility] originated interpretation requested or available. [facility] Regan Salazarel DO IMG OUTSIDE IMAGE ORDERAB LES Final Result * (ABNORMAL) Basic Metabolic Panel- Total Calcium (01/03/2024 2:59 PM CDT) Only the most recent of7 resultswithin the time period is included. eGFR 71 >=60 mL/min/1. 73 sq. m 01/03/2024 3:44 PM CDT [facility] Comment: The eGFRcr is calculated with [...] - 10.2 mg/dL 01/03/2024 3:44 PM CDT [facility] Sodium Level 139 136 - 145 mmol/L 01/03/2024 3:44 PM CDT [facility] Potassium Level 3.9 3.4 - 4.5 mmol/L 01/03/2024 3:44 PM CDT [facility] Chloride 103 98 - 107 mmol/L 01/03/2024 3:44 PM CDT [facility] CO2 28 22 - 29 mmol/L 01/03/2024 3:44 PM CDT [facility] Anion Gap 8 4 - 14 mmol/L 01/03/2024 3:44 PM CDT [facility] Creatinine 1.18(H) 0.67 - 1.17 mg/dL 01/03/2024 3:44 PM CDT [facility] BUN 15 6 - 23 mg/dL 01/03/2024 3:44 PM CDT [facility] Glucose Level 137(H) 70 - 99 mg/dL 01/03/2024 3:44 PM CDT [facility] Comment: Effective 12/14/15, the glucose reference intervals have been updated based on [place] [employer] guidelines (Standards of Medical Care [...] BLOOD ORDERABLES Final Result Performing Organization Address City/[facility] Co de Phone Number [facility] Unless otherwise noted, all lab tests performed by: Division of Pathology and Laboratory Medicine [address] [place] [address] * Zinc Transporter 8 Ab (01/03/2024 4:22 AM CDT) Pathologist [facility] Zinc T8 AB <15.0 <15.0 U/mL 01/15/2024 11:18 AM CDT [facility] Comment: ADDITIONAL INFORMATION This test has been modified from the medical collector's instructions. Its performance characteristics were determined by [facility] in a manner consistent with CLIA requirements. This test has not been cleared or approved by the U.S. Food and Drug Administration. Test Performed by: [address] [address] Fire Engine Pump Operator: Mary Jane Topete Ph.D.; CLIA# [id number] Blood Peripheral blood specimen / Unknown Venipuncture / Unknown 01/03/2024 4:22 AM CDT 01/03/2024 4:55 AM CDT Alicia Mcmanus APRN LAB BLOOD ORDERABLES Final Result Performing Organization Address City/[facility]/ZIP Co de Phone Number [facility] * Islet Antigen 2 (IA-2) Antibody (01/03/2024 4:22 AM CDT) IA-2 Antibody 0.00 <=0.02 nmol/L 01/07/2024 12:20 AM CDT [facility] Comment: ADDITIONAL INFORMATION This test was developed and its performance characteristics determined by [facility] in a manner consistent with CLIA requirements. This test has not been cleared or approved by the U.S. Food and Drug Administration. Test Performed by: [facility] [place] [address] Fire Engine Pump Operator: Mary Jane Topete Ph.D.; CLIA# [id number] Blood Peripheral blood specimen / Unknown Venipuncture / Unknown 01/03/2024 4:22 AM CDT 01/03/2024 4:55 AM CDT Alicia Mcmanus APRN LAB BLOOD ORDERABLES Final Result [facility] * GREG Ab Assay (01/03/2024 4:22 AM CDT) [facility] [id number] 0.00 <=0.02 nmol/L 01/07/2024 12:01 AM CDT [facility] Comment: ADDITIONAL INFORMATION This test was developed and its performance characteristics determined by [facility] in a manner consistent with CLIA requirements. This test has not been cleared or approved by the U.S. Food and Drug Administration. Test Performed by: [facility] - [address] [address] Fire Engine Pump Operator: Mary Jane Topete Ph.D.; CLIA# [id number] Blood Peripheral blood specimen / Unknown Venipuncture / Unknown 01/03/2024 4:22 AM CDT 01/03/2024 4:55 AM CDT Alicia Mcmanus APRN LAB BLOOD ORDERABLES Final Result Performing Organization Address City/[facility]/ZIP Co de Phone Number [facility] * Insulin Ab (01/03/2024 4:22 AM CDT) [facility] 0.00 0.00 - 0.02 nmol/L 01/06/2024 5:14 PM CDT [facility] Comment: ADDITIONAL INFORMATION This test was developed and its performance characteristics determined by [facility] in a manner consistent with CLIA requirements. This test has not been cleared or approved by the U.S. Food and Drug Administration. Test Performed by: [place] [address] Fire Engine Pump Operator: Mary Jane Topete Ph.D.; CLIA# [id number] Blood Peripheral blood specimen / Unknown Venipuncture / Unknown 01/03/2024 4:22 AM CDT 01/03/2024 4:55 AM CDT Alicia Mcmanus APRN LAB BLOOD ORDERABLES Final Result Performing Organization Address [facility] de Phone Number [facility] * C Peptide (01/03/2024 4:22 AM CDT) [facility] C-Peptide 2.12 1.10 - 4.40 ng/mL 01/03/2024 5:48 AM CDT [facility] Blood Peripheral blood specimen / Unknown Venipuncture / Unknown 01/03/2024 4:22 AM CDT 01/03/2024 4:55 AM CDT Alicia Mcmanus APRN LAB BLOOD ORDERABLES Final Result Performing Organization Address City/[facility]/ZIP Co de Phone Number [facility] Unless otherwise noted, all lab tests performed by: Division of Pathology and Laboratory Medicine [address] [place] [address] * (ABNORMAL) Hemogram (01/02/2024 7:20 PM CDT) White Blood Cell 13.8(H) 4.1 - 10.5 K/uL 01/02/2024 7:33 PM CDT [facility] Red Blood Cell 4.74 4.30 - 6.04 M/uL 01/02/2024 7:33 PM CDT [facility] Hemoglobin 12.2(L) 13.3 - 17.4 g/dL 01/02/2024 7:33 PM CDT [facility] Hematocrit 38.6(L) 39.5 - 51.8 % 01/02/2024 7:33 PM CDT [facility] Mean Cell Volume 81(L) 82 - 99 fL 01/02/2024 7:33 PM CDT [facility] Mean Cell Hemoglobin 25.7(L) 26.6 - 33.2 pg 01/02/2024 7:33 PM CDT [facility] Mean Cell Hemoglobin Concentration 31.6 31.1 - 35.2 g/dL 01/02/2024 7:33 PM CDT [facility] RDW-SD 39.1 37.5 - 49.7 fL 01/02/2024 7:33 PM CDT [facility] Red Cell Diameter Width 13.1 11.6 - 15.5 % 01/02/2024 7:33 PM CDT [facility] Platelet 291 160 - 397 K/uL 01/02/2024 7:33 PM CDT [facility] Mean Platelet Volume 9.7 9.1 - 12.6 fL 01/02/2024 7:33 PM CDT [facility] INRBC 0.0 0.0 - 0.1 /100 WBC 01/02/2024 7:33 PM CDT [facility] Comment: The INRBC (instrument NRBC) value [...] PM CDT 01/02/2024 7:24 PM CDT us Ariansandra Crowjonbipin PRICE LAB BLOOD ORDERABLES Final R esult [facility] Unless otherwise noted, all lab tests performed by: Division of Pathology and Laboratory Medicine [address] [place] [address] * (ABNORMAL) Beta Hydroxy Quant (01/02/2024 7:20 PM CDT) Only the most recent of2 resultswithin the time period is included. Beta-Hydroxybuty rate 0.85(H) 0.02 - 0.27 mmol/L 01/02/2024 8:01 PM CDT [facility] Is patient fasting? No 01/02/2024 8:01 PM CDT [facility] Comment:A fasting specimen i s recommended and results obtained from non-fasting specimens should be interpreted with caution using reference ranges based on fasting status and in conjunction with clinical context. Blood Peripheral blood specimen / Unknown Venipuncture / Unknown 01/02/2024 7:20 PM CDT 01/02/2024 7:24 PM CDT Narrative [facility] - 01/02/2024 8:01 PM CDT Reference range based on fasting. Alicia Mcmanus APRN LAB BLOOD ORDERABLES Final Result Performing Organization Address City/[facility]/ZIP Co de Phone Number [facility] Unless otherwise noted, all lab tests performed by: Division of Pathology and Laboratory Medicine [address] [place] [address] * (ABNORMAL) ABG+ (ABG, Na, K, Cl, Glu, Hgb, Hct, Lactate, Ion Ca) (01/02/2024 10:38 AM CDT) Only the most recent of2 resultswithin the time period is included. Sodium Arterial 140 136 - 146 mmol/L 01/02/2024 10:44 AM CDT [facility] Potassium Arterial 3.7 3.4 - 4.5 mmol/L 01/02/2024 10:44 AM [facility] Chloride Arterial 103 98 - 106 mmol/L 01/02/2024 10:44 AM [facility] Glucose Arterial 270(H) 70 - 105 mg/dL 01/02/2024 10:44 AM [facility] Hgb Art 12.9(L) 13.5 - 17.5 g/dL 01/02/2024 10:44 AM [facility] Hematocrit Arterial 40(L) 42 - 52 % 01/02/2024 10:44 AM [facility] Lactate Arterial 1.0(H) 0.4 - 0.8 mmol/L 01/02/2024 10:44 AM [facility] Calcium Ionized Arterial 1.14(L) 1.15 - 1.29 mmol/L 01/02/2024 10:44 AM [facility] pH Arterial 7.35 7.35 - 7.45 01/02/2024 10:44 AM [facility] P CO2 Arterial 42.9 35.0 - 48.0 mmHg 01/02/2024 10:44 AM [facility] P O2 Arterial 164(H) 83 - 108 mmHg 01/02/2024 10:44 AM [facility] Bicarbonate Arterial 24 21 - 28 mmol/L 01/02/2024 10:44 AM [facility] WB Anion Gap 13 7 - 16 mmol/L 01/02/2024 10:44 AM [facility] Base Excess Arterial -2 -2 - 3 mmol/L 01/02/2024 10:44 AM [facility] Oxygen Saturation Arterial 99 95 - 99 % 01/02/2024 10:44 AM [facility] Oxygen FLOW Rate/ FiO2 01/02/2024 10:44 AM [facility] O2 Therapy 01/02/2024 10:44 AM [facility] Art Kirill Test Not Applicable (Arterial Line Draw) 01/02/2024 10:44 AM [facility] Blood Arterial blood specimen / Unknown Arterial Line / Unknown 01/02/2024 10:38 AM CDT 01/02/2024 10:41 AM CDT Narrative [facility] - 01/02/2024 10:44 AM CDT The [...] MD LAB BLOOD ORDERABLES Final Re sult [facility] Unless otherwise noted, all lab tests performed by: Division of Pathology and Laboratory Medicine [address] [place] [address] * Intraoperative Ultrasound - For Image Storage [...] EXP DATE 01/22/2024 12/23/2023 2:19 PM CDT [facility] Blood Peripheral blood specimen / Unknown Venipuncture / Unknown 12/23/2023 8:51 AM CDT 12/23/2023 9:00 AM CDT Margoth Souza MD BLOOD BANK TEST ORDERABLES Final Result [facility] [address] [place] [address] [place] [phone] * Preop Updated Expiration (12/23/2023 8:51 AM CDT) Pathologist [facility] PREOP STATUS 01/02/2024 11:33 PM CDT [facility] PREOP EXP DATE 01/02/2024 01/02/2024 11:33 PM CDT [facility] Blood Peripheral blood specimen / Unknown Venipuncture / Unknown 12/23/2023 8:51 AM CDT 12/23/2023 9:00 AM CDT Margoth Souza MD BLOOD BANK TEST ORDERABLES Final Result [facility] [address] [place] [address] [id number] [place] [address] * (ABNORMAL) Urinalysis with Reflex Culture (12/23/2023 8:51 AM CDT) Only the most recent of2 resultswithin the time period is included. Pathologist [facility] Urine Appearance Clear Clear 12/23/19 9:33 AM CDT [facility] Urine Color Straw Colorless, Straw, Yellow, Dark Yellow, Straw-Yellow 12/23/2023 9:33 AM CDT [facility] Urine Specific Boyers 1.032 1.003 - 1.035 12/23/2023 9:33 AM CDT [facility] Urine pH 6.0 5.0 - 8.0 12/23/2023 9:33 AM CDT [facility] Urine Glucose >=1000(A) Negative mg/dL 12/23/2023 9:33 AM CDT [facility] Urine Ketones Negative Negative mg/dL 12/23/2023 9:33 AM CDT [facility] Urine Blood Negative Negative 12/23/2023 9:33 AM CDT [facility] Urine Protein 30(A) Negative mg/dL 12/23/2023 9:33 AM CDT [facility] Urine Bilirubin Negative Negative 9:33 AM CDT [facility] Urine Urobilinogen Negative Negative 12/23/2023 9:33 AM CDT [facility] Urine Nitrite Negative Negative 12/23/2023 9:33 AM CDT [facility] Urine Leukocyte Esterase Negative Negative 12/23/2023 9:33 AM CDT [facility] Urine Mucous Not Seen Not Seen, Trace /HPF 12/23/2023 9:33 AM CDT [facility] Urine Bacteria Not Seen Not Seen /HPF 12/23/2023 9:33 AM CDT [facility] Urine Squamous Epithelial Cells OCC Not Seen, OCC, Rare /HPF 12/23/2023 9:33 AM CDT [facility] Urine WBC <1 <=2 /HPF 12/23/2023 9:33 AM CDT [facility] Urine RBC 1 <=2 /HPF 12/23/2023 9:33 AM T [facility] Urine Voided urine specimen / Unknown Non-blood Collection / Unknown 12/23/2023 8:51 AM CDT 12/23/2023 9:10 AM CDT [facility] Center - 12/23/2023 9:33 AM CDT Some reporting parameters within the Urinalysis test have changed due to the implementation of new instrumentation in the Main [place], allowing greater sensitivity of measurement. Urinalysis results reported by the [facility] using existing instrumentation, as well as Urinalysis testing performed manually or by back-up methodology at the main campus, will remain relatively unchanged. New reporting parameters and units will now be reported for all cincinnaties. us Margoth Souza MD URINE ORDERABLES Final Result Performing Organization Address City/[facility]/ZIP Co de Phone Number [facility] Unless otherwise noted, all lab tests performed by: Division of Pathology and Laboratory Medicine [address] [place] [id number] * 30-Day Pre-Op Type and Screen (12/23/2023 8:51 AM CDT) Only the most recent of2 resultswithin the time period is included. ABORh O POS 12/23/2023 8:45 AM CDT [facility] ABSC Negative 12/23/2023 8:45 AM CDT [facility] BB Criteria Met Criteria met 12/23/2023 8:45 AM CDT [facility] Historical Record Check Complete 12/23/2023 8:45 AM CDT [facility] Blood Peripheral blood specimen / Unknown Venipuncture / Unknown 12/23/2023 8:51 AM CDT 12/23/2023 9:00 AM CDT us Margoth Souza MD BLOOD BANK TEST ORDERABLES Final Result Performing Organization Address City/[facility] Co de Phone Number [facility] [address] [place] [address] [phone] [place] [address] * TMP Interpretation Exception PreOp Expiration (12/23/2023 8:51 AM CDT) Only the most recent of2 resultswithin the time period is included. TMP Exception 12/24/2023 10:47 AM CDT [facility] TMP Signature . 12/24/2023 10:47 AM CDT [facility] Blood Peripheral blood specimen / Unknown Venipuncture / Unknown 12/23/2023 8:51 AM CDT 12/23/2023 9:00 AM CDT Margoth Souza MD BLOOD BANK TEST ORDERABLES Final Result Performing Organization Address City/[facility]/ZIP Co de Phone Number [facility] [address] [place] [address] [phone] [place] [address] * ACTH (12/09/2023 9:45 AM CDT) Only the most recent of2 resultswithin the time period is included. Pathologist [facility] ACTH 22 7 - 63 pg/mL 12/09/2023 12:19 PM CDT [facility] Blood Peripheral blood specimen / Unknown Venipuncture / Unknown 12/09/2023 9:45 AM CDT 12/09/2023 9:52 AM CDT Narrative [facility] - 12/09/2023 12:19 PM CDT Reference range established based on adult population (7 - 10am draws). No established reference values for p.m. draws. Results greater than 1826 pg/mL may not be reliable due to matrix effect with extended dilution as it exceeds the medical collector's recommended limit. ACTH reference intervals are established for the morning hours from 7-10 am. Due to the circadian rhythm of ACTH levels in plasma, the sample collection time must be noted. Caution should be exercised when interpreting such values and done in conjunction with clinical context. Veronica Del Castillo APRN LAB BLOOD ORDERABLES Final Result [facility] Unless otherwise noted, all lab tests performed by: Division of Pathology and Laboratory Medicine [address] [place] [address] * DHEA Sulfate (12/09/2023 9:45 AM CDT) Pathologist [facility] DHEAS-[place] [address] 20 - 299 mcg/dL 12/10/2023 12:10 PM CDT [facility] Comment: Test Performed by: [facility] [address] [place] [address] Fire Engine Pump Operator: Mary Jane Topete Ph.D.; CLIA# [id number] Blood Peripheral blood specimen / Unknown Venipuncture / Unknown 12/09/2023 9:45 AM CDT 12/09/2023 9:56 AM CDT LeahElaine OrtaMónica MARIE LAB BLOOD ORDERABLES Final Result [facility] * Cortisol, Total (12/09/2023 9:45 AM CDT) Only the most recent of4 resultswithin the time period is included. Cortisol 11.39 4.82 - 19.50 mcg/dL 12/09/2023 11:00 AM CDT [facility] Blood Peripheral blood specimen / Unknown Venipuncture / Unknown 12/09/2023 9:45 AM CDT 12/09/2023 9:55 AM CDT Narrative [facility] - 12/09/2023 11:00 AM [...] Castillo APRN LAB BLOOD ORDERABLES Final Result [facility] Unless otherwise noted, all lab tests performed by: Division of Pathology and Laboratory Medicine [address] [place] [address] [place] [address] * IR CT GUIDED BIOPSY RENAL (10/03/2023 10:27 AM CDT) Anatomical Region Laterality Modality Abdomen/Pelvis, Organ (liver/spleen/kidney) Computed Tomography Narrative 10/04/2023 9:03 AM CDT Table formatting from the original result was not included. Date of Procedure: 10/03/23 Attending Physician: Kumar Comer MD Battery Charger Conveyor Line: None Pre Procedure Diagnosis: Renal mass Post [...] - 14.5 second(s) 10/03/2023 9:57 AM CDT [facility] International Normalization Ratio 0.98 0.87 - 1.12 10/03/2023 9:57 AM CDT [facility] Blood Peripheral blood specimen / Unknown Venipuncture / Unknown 10/03/2023 9:27 AM CDT 10/03/2023 9:28 AM CDT us ConradoDannielle Ng PA-C LAB BLOOD ORDERABLES Final Result [facility] [address] [facility] [place] [address] * Type and Screen (10/03/2023 9:27 AM CDT) ABORh O POS 10/03/2023 9:17 AM CDT [facility] ABSC Negative 10/03/2023 9:17 AM CDT [facility] Clot Expiration 10/06/2023 23:59 10/03/2023 9:17 AM CDT [facility] Historical Record Check Complete 10/03/2023 9:17 AM CDT [facility] Blood Peripheral blood specimen / Unknown Venipuncture / Unknown 10/03/2023 9:27 AM CDT 10/03/2023 9:52 AM CDT Abilio Ng PA-C BLOOD BANK TEST ORDERABLES Final Result [facility] [address] [place] [address] * X-ray Chest 2 Views (09/19/2023 9:24 [...] and potentially actionable. us Shazia Arriaza MD [facility] ORD ERABLES Final Result * Metanephrines Fractionated (09/16/2023 4:24 PM CDT) Normetane Free-[place] 0.43 <0.90 nmol/L 09/19/2023 2:59 PM CDT [facility] Metanephr Free-[place] <0.20 <0.50 nmol/L 09/19/2023 2:59 PM CDT [facility] Comment: ADDITIONAL INFORMATION This test was developed and its performance characteristics determined by [facility] in a manner consistent with CLIA requirements. This test has not been cleared or approved by the U.S. Food and Drug Administration. Test Performed by: [facility] [address] [place] [address] Fire Engine Pump Operator: Scot Skelton M.D. Ph.D.; CLIA# [id number] Blood Peripheral blood specimen / Unknown Venipuncture / Unknown 09/16/2023 4:24 PM CDT 09/16/2023 4:41 PM CDT Shazia Arriaza MD LAB BLOOD ORDERABLES Final Result Performing Organization Address City/[facility]/ZIP Co de Phone Number [facility] * Hepatitis C Virus Antibody (09/16/2023 4:24 PM CDT) HCVAb. Non Reactive Non Reactive 09/17/2023 9:11 AM CDT [facility] Blood Peripheral blood specimen / Unknown Venipuncture / Unknown 09/16/2023 4:24 PM CDT 09/16/2023 4:41 PM CDT Narrative [facility] - 09/17/2023 9:11 AM CDT Antibody detection in the immunocompromised and immunosuppressed population may be delayed or absent entirely. Therefore serial testing, correlation with other clinical findings, and supplemental testing (if available) should be taken into consideration when interpreting the results. us Shazia Arriaza MD LAB BLOOD ORDERABLES Final Result [facility] Unless otherwise noted, all lab tests performed by: Division of Pathology and Laboratory Medicine [address] [place] [address] * Aldosterone Level (09/16/2023 4:24 PM CDT) Pathologist [facility] Aldosterone-[place] 8.1 <=21 ng/dL 09/20/2023 1:02 AM CDT [facility] Comment: ADDITIONAL INFORMATION Reference range for patients 11 years and older is based on upright A.M. collection from subjects without sodium restrictions. This test was developed and its performance characteristics determined by [facility] in a manner consistent with CLIA requirements. This test has not been cleared or approved by the U.S. Food and Drug Administration. Test Performed by: [facility] [address] Fire Engine Pump Operator: Scot Skelton M.D. Ph.D.; CLIA# [id number] Blood Peripheral blood specimen / Unknown Venipuncture / Unknown 09/16/2023 4:24 PM CDT 09/16/2023 4:41 PM CDT us Shazia Arriaza MD LAB BLOOD ORDERABLES Final Result [facility] * Renin Activity (09/16/2023 4:24 PM CDT) [facility] Renin Activity-[place] 4.3 ng/mL/h 09/19 3:42 PM CDT [facility] Comment: REFERENCE VALUE (Peripheral vein specimen) Na-deplete, upright: Mean: 5.9 Range: 2.9-10.8 Na-replete, upright: Mean: 1.0 Range: < or =0.6-3.0 ADDITIONAL INFORMATION Testing performed by Liquid Chromatography-Tandem Mass Spectrometry (LC-MS/MS). This test was developed and its performance characteristics determined by [facility] in a manner consistent with CLIA requirements. This test has not been cleared or approved by the U.S. Food and Drug Administration. Test Performed by: [facility] [address] [place] [address] Fire Engine Pump Operator: Scot Skelton M.D. Ph.D.; CLIA# [id number] Blood Peripheral blood specimen / Unknown Venipuncture / Unknown 09/16/2023 4:24 PM CDT 09/16/2023 4:41 PM CDT Result Awa Arriaza MD LAB BLOOD ORDERABLES Final Result Performing Organization Address City/[facility] Co de Phone Number [facility] * Urine Culture (09/16/2023 4:24 PM CDT) Pathologist [facility] Urine Culture Normal site mirna present. Generally of low significance. Correlate with clinical data and culture history. 09/18/2023 8:31 AM CDT [facility] Urine Voided urine specimen / Unknown Non-blood Collection / Unknown 09/16/2023 4:24 PM CDT 09/16/2023 4:41 PM CDT Result Awa Arriaza MD MICROBIOLOGY - GENERAL ORD ERABLES Final Result Performing Organization Address City/[facility] Co de Phone Number [facility] Unless otherwise noted, all lab tests performed by: Division of Pathology and Laboratory Medicine [address] [place] [address] * T4 (09/16/2023 4:24 PM CDT) Thyroxine 7.0 4.5 - 11.7 mcg/dL 09/16/2023 5:55 PM CDT [facility] Blood Peripheral blood specimen / Unknown Venipuncture / Unknown 09/16/2023 4:24 PM CDT 09/16/2023 4:41 PM CDT Result Awa Arriaza MD LAB BLOOD ORDERABLES Final Result [facility] Unless otherwise noted, all lab tests performed by: Division of Pathology and Laboratory Medicine [facility] [facility] [place] [address] * Confirm ABORh (09/16/2023 4:23 PM CDT) ABORh Confirm O POS 09/16/2023 4:15 PM CDT [facility] Blood Peripheral blood specimen / Unknown Venipuncture / Unknown 09/16/2023 4:23 PM CDT 09/16/2023 4:41 PM CDT us Shazia Arriaza MD BLOOD BANK TEST ORDERABLES Final Result Performing Organization Address City/State/[facility] Co de Phone Number [facility] [address] [place] [address] [address] [place] [address] after 07/27/2023 Insurance MEDICARE PART A AND B MEDICARE PART A AND B Advance Directives * Full Code (Latest Code Status on File) Date Activated Date Inactivated Comments 04/12/2024 1:24 PM 04/12/2024 5:43 PM * Full Code Date Activated Date Inactivated Comments 01/02/2024 1:48 PM 01/03/2024 7:17 PM Care Teams Dna Sequencing Associate Relationship Specialty Start Date End Date Margoth Souza MD [address] [place] [phone] [email or web address] PCP - General Urology 07/30/23 04/14/24 Eagle Zhu DO [address] [place] [address] [id number] [email or web address] PCP - External Primary Care Provider Family Practice 04/08/24 Marianela Hutchinson MD [address] [place] [phone] [email or web address] PCP - General Gastrointestinal Medical Oncology 05/04/24 Mary Jane Cassidy MD [address] [place] [phone] [email or web address] Consulting Physician Endocrinology 12/09/23 Barry He MD [address] [place] [phone] [email or web address] Consulting Physician Internal Medicine 12/23/23 Patience Hunt MD [address] [place] [phone] [email or web address] Consulting Physician Endocrinology 12/31/23 Marianela Hutchinson MD [address] [place] [phone] [email or web address] Consulting Physician Gastrointestinal Medical Oncology 04/13/24 Margoth Souza MD [address] [place] [phone] [email or web address] Consulting Physician Urology 04/15/24 Ceci Nicholson MD [address] [place] [phone] [email or web address] Consulting Physician Internal Medicine 04/09/24 Sigifredo Davenport MD [address] [place] [phone] [email or web address] Consulting Physician Internal Medicine 06/29/24
[2024-07-26] MEDS ORDERED: PROMETHAZINE 25 MG TABLET ONE (01:52)
[2024-07-26 03:52] VITALS: BP 175/87; TEMP 97.3; O2SAT 98
== END 2024-07-26 03:38 | disposition home or self-care (01) ==
LOC: ER 01:09
DX: R11.0 Nausea (principal); C16.8 Malignant neoplasm of overlapping sites of stomach
CPT/HCPCS: 99283; Q0169

== ENCOUNTER 2024-07-31 12:58 | Emergency (ER) | payer OTHER, BC ==
--- OUTSIDE RECORDS SUMMARY | 2024-07-31 13:06 | XMS REPORT | Clinical Summary ---
Author Name Unknown Organization [facility] Address [address] [place] [address] Care Team Providers Care Corporate Driver Name Role Phone Margoth Souza MD Primary Care Provider [phone] Mary Jane Cassidy MD Unavailable [phone] Barry He MD Unavailable Patience Hunt MD Unavailable ZhuEagle gomez DO Unavailable [phone] Marianela Hutcihnson MD Unavailable [phone] Margoth Souza MD Unavailable Ceci Nicholson MD Unavailable [phone] Marianela Hutchinson MD Primary Care Provider [phone] Sigifredo Davenport MD Unavailable Allergies No known [...] mg) by mouth daily. 01/20/20 24 Active amLODIPine (NORVASC) 5 mg tablet [...] by Tylenol). 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, 8th [place] [address] Marianela Hutchinson MD Adenocarcinoma of stomach (Primary Dx) 07/21/2024 Telephone [facility] [place] [address] [facility], 8th [place] [address] Rosanna Álvarez, ARTURO Chemotherapy Teaching 07/16/2024 2:40 PM MACHINE FANCY STITCHER [facility] [address] [place] [address], 7th [place] [address] Marianela Hutchinson MD Adenocarcinoma of stomach (Primary Dx) 07/16/2024 Orders Only [facility] [address] [place] [address], 7th [place] [address] Marianela Hutchinson MD Adenocarcinoma of stomach (Primary Dx) 07/16/2024 Orders Only [facility] [address] [place] [address], 7th [place] [address] Radha Castellon, [facility] Adenocarcinoma of stomach (Primary Dx) 07/16/2024 Travel 07/15/2024 10:08 AM MACHINE FANCY STITCHER - 07/15/2024 11:59 PM MACHINE FANCY STITCHER Hospital Encounter CT [facility] Diagnostic [facility] [address] [place] [address], 3rd [place] [address] Mary Kay Santamaria APRN Adenocarcinoma of stomach Discharge Disposition: Home 07/15/2024 9:49 AM MACHINE FANCY STITCHER - 07/15/2024 10:07 AM MACHINE FANCY STITCHER Hospital Encounter [facility] [address] [place] [address] Mary Kay Santamaria APRN Adenocarcinoma of stomach Discharge Disposition: Home 07/07/2024 Orders Only [facility] [address] [place] [address], 7th [place] [address] Gillian Gomez PA-C Adenocarcinoma of stomach (Primary Dx) 07/06/2024 Telephone [facility] - Surgical Oncology [facility] Main dg, 7th [place] [address] Mary Kay Santamaria, SYSTEMS SUPPORT SPECIALIST 07/06/2024 Orders Only [facility] - Surgical Oncology [facility] Main dg, 7th [place] [address] Mary Kay Santamaria, SYSTEMS SUPPORT SPECIALIST 07/06/2024 Orders Only [facility] [address] [place] [address] Main [facility], 7th [place] [address] Gillian Gomez PA-C Adenocarcinoma of stomach (Primary Dx) 07/06/2024 Multidisciplinary Visit [facility] [address] [place] [address] Main [facility], 7th Floor Elevator A [place] [phone] Gillian Gomez PA-C 07/06/2024 Orders Only [facility] [address] [place] [address] Main dg, 7th [place] [address] Donnell Van Adenocarcinoma of stomach (Primary Dx) 07/02/2024 11:00 AM MACHINE FANCY STITCHER Nutrition Clinical Nutrition For your Nutrition appointment location directions please call: Marianela Hutchinson MD Munder, Kathryn, SCOTT Left without seen 07/02/2024 10:30 AM MACHINE FANCY STITCHER [facility] - Surgical Oncology [address] [place] [address] Main Bldg, 7th Floor Elevator A [place] [phone] John Fong MD Adenocarcinoma of stomach 07/02/2024 Documentation [facility] [address] [place] [address] Main dg, 7th Floor Elevator A [place] [phone] John Fong MD 06/30/2024 3:33 PM MACHINE FANCY STITCHER Anesthesia Event Perioperative Evaluation [facility] Management Center [address] [place] [address] Main dg, 6th Floor Elevator A [place] [phone] Lien [place] RN 06/30/2024 12:25 PM MACHINE FANCY STITCHER Anesthesia Event Endoscopy Center [address] [place] [address] Main [facility], 5th [place] [address] Susana Kelly MD 06/30/2024 12:00 PM MACHINE FANCY STITCHER - 06/30/2024 12:45 PM MACHINE FANCY STITCHER Surgery [facility]oscopy Center [address] [place] [address] Main [facility], 5th [place] [address] Brandon Alcala MD DIAGNOSTIC UPPER GASTROINTESTINAL ENDOSCOPY 06/30/2024 10:15 AM MACHINE FANCY STITCHER - 06/30/2024 2:24 PM MACHINE FANCY STITCHER Hospital Encounter Endoscopy Center [address] [place] [address], 5th Floor Elevator C [place] [phone] Brandon Alcala MD Adenocarcinoma of stomach Discharge Disposition: Home 06/30/2024 Travel 06/29/2024 9:00 AM MACHINE FANCY STITCHER Consult Perioperative Evaluation and Management [address] [place] [address], 6th Floor Elevator A [place] [phone] Mary Kay Santamaria APRN Vu, Khanh D, MD Encounter for preprocedural cardiovascular examination (Primary Dx); Coronary arteriosclerosis, not otherwise specified; Cardiomyopathy, not otherwise specified; Hypertension; alf current use of 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; Type 2 diabetes mellitus with hyperglycemia; Dyslipidemia; Hyponatremia; Hyperkalemia; Adenocarcinoma of stomach; Paroxysmal atrial fibrillation; Hyperlipidemia, not otherwise specified 06/29/2024 8:00 AM MACHINE FANCY STITCHER POEM Appointments [facility] [address] [place] [address] Main [facility], 6th Floor Elevator A [place] [phone] Marianela Hutchinson MD 06/29/2024 7:30 AM MACHINE FANCY STITCHER - 06/29/2024 11:59 PM MACHINE FANCY STITCHER Hospital Encounter [facility] - [facility] [address] [place] [address] Main [facility], 2nd [place] [address] Mary Kay Santamaria APRN Adenocarcinoma of stomach Discharge Disposition: Home 06/29/2024 Travel 06/23/2024 Documentation [facility] [address] [place] [address], 7th [place] [address] Mony Saavedra, RN 06/22/2024 12:20 PM MACHINE FANCY STITCHER [facility] [address] [place] [address], [address] [place], [place] [address] [address] Marianela Hutchinson MD Adenocarcinoma, NOS of stomach, NOS 06/22/2024 Orders Only [facility] [address] [place] [address], [address] [place], [place] [address]ator [place] [address] Radha Castellon, [facility] 06/22/2024 Travel 06/20/2024 10:45 AM MACHINE FANCY STITCHER - 06/20/2024 11:59 PM MACHINE FANCY STITCHER Hospital Encounter Diagnostic Imaging [facility] [address] [place] [address], 3rd [place] [address] Adenocarcinoma, NOS of stomach, NOS; Malignant neoplasm of overlapping sites of esophagus Discharge Disposition: Home 06/20/2024 10:08 AM MACHINE FANCY STITCHER - 06/20/2024 10:44 AM MACHINE FANCY STITCHER Hospital Encounter [facility] [address] [place] [address] Gillian Gomez PA-C Adenocarcinoma, NOS of stomach, NOS Discharge Disposition: Home 06/16/2024 [place] [facility] - Surgical Oncology [address] [place] [address], [address] [place], [place] [address]ator [place] [address] Mary Kay Santamaria APRN 06/15/2024 1:30 PM MACHINE FANCY STITCHER Infusion [facility] Treatment [facility] - Blue [address] [facility], 8th [place] [address] Marianela Hutchinson MD [facility], Jorge Tyson RN Adenocarcinoma of stomach (Primary Dx); Iron deficiency anemia, not otherwise specified 06/15/2024 12:40 PM MACHINE FANCY STITCHER [facility] [address] [place] [address], [facility] [place] [address] Marianela Hutchinson MD Adenocarcinoma, NOS of stomach, NOS; Malignant neoplasm of overlapping sites of esophagus 06/15/2024 10:24 AM MACHINE FANCY STITCHER - 06/15/2024 11:59 PM MACHINE FANCY STITCHER Hospital Encounter Diagnostic Laboratory Center [facility] [place] [address] Marianela Hutchinson MD Adenocarcinoma of stomach; Adenocarcinoma, NOS of stomach, NOS Discharge Disposition: Home 06/15/2024 Orders Only [facility] [address] [place] [address] Main [facility], 7th [place] [address] Radha Castellon [facility] Adenocarcinoma of stomach (Primary Dx) 06/15/2024 Orders Only [facility] [address] [place] [address], 7th [place] [address] Gillian Gomez PA-C 06/15/2024 Travel 06/15/2024 Telephone [facility] - Gastroenterology, Hepatology & Nutrition [address] [place] [address], [facility] [place] [address] Arnaldo Araujo PA-C 06/15/2024 Multidisciplinary Visit [facility] [address] [place] [address], [address] [place], [place] [address]ator [place] [address] Lakeshia Pablo PA 06/15/2024 Orders Only [facility] [address] [place] [address], [address] [place] [address] Marianela Hutchinson MD Adenocarcinoma of stomach (Primary Dx) 06/12/2024 Prep for Surgery [facility] - Gastroenterology, Hepatology & Nutrition [address] [place] [address], [address] [place] [address] Arnaldo Araujo PA-C Adenocarcinoma of stomach (Primary Dx) 06/12/2024 Telephone [facility] - Surgical Oncology [address] [place] [address], [address] [place], [place] [address]ator [place] [address] Mary Kay Santamaria APRN 06/12/2024 Orders Only [facility] - Surgical Oncology [address] [place] [address] Main [facility], [facility] [place] [address] Mary Kay Santamaria, FRANK Adenocarcinoma of stomach (Primary Dx) 06/10/2024 Orders Only [facility] - Surgical Oncology [address] [place] [address], 7th [place] [address] Mary Kay Santamaria APRN Adenocarcinoma of stomach (Primary Dx) 06/05/2024 Telephone [facility] - Gastroenterology, Hepatology & Nutrition [address] [place] [address], 7th [place] [address] Arnaldo Araujo PA-C 06/03/2024 5:30 PM MACHINE FANCY STITCHER Infusion [facility] Treatment [facility] - Blue [address] [facility], 8th [place] [address] Marianela Hutchinson MD Lewandowski, Teresa M, RN Adenocarcinoma of stomach (Primary Dx) 06/03/2024 Travel 06/02/2024 Telephone [facility] [address] [place] [address], 7th [place] [address] Mony Saavedra RN 06/01/2024 1:00 PM MACHINE FANCY STITCHER Infusion [facility] [address] [facility], Floor 6 [place] [address] Marianela Hutchinson MD Shaik, Anna Marie B, RN Adenocarcinoma of stomach (Primary Dx); Iron deficiency anemia, not otherwise specified 06/01/2024 10:53 AM MACHINE FANCY STITCHER - 06/01/2024 11:59 PM MACHINE FANCY STITCHER Hospital Encounter [facility] [address] [place] [address] Marianela Hutchinson MD Adenocarcinoma of stomach; Iron deficiency anemia, not otherwise specified Discharge Disposition: Home 06/01/2024 Orders Only [facility] [address] [place] [address], 7th [place] [address] Marianela Hutchinson MD 06/01/2024 Orders Only [facility] [address] [place] [address], 7th [place] [address] Radha Castellon [facility] Adenocarcinoma of stomach (Primary Dx); Iron deficiency anemia, not otherwise specified 06/01/2024 Travel 06/01/2024 Orders Only [facility] [address] [facility], Floor 6 [place] [address] Marianela Hutchinson MD Adenocarcinoma of stomach (Primary Dx) 05/26/2024 Telephone [facility] - Gastroenterology, Hepatology & Nutrition [address] [place] [address] Main [facility], 7th [place] [address] Arnaldo Araujo PA-C 05/22/2024 Telephone [facility] - Gastroenterology, Hepatology & Nutrition [facility] Main [facility], 7th [place] [address] Arnaldo Araujo PA-C 05/22/2024 Orders Only [facility] - Gastroenterology, Hepatology & Nutrition [address] [place] [address], 7th [place] [address] Arnaldo Araujo PA-C Candidal esophagitis (Primary Dx) 05/20/2024 4:30 PM MACHINE FANCY STITCHER - 05/20/2024 11:59 PM MACHINE FANCY STITCHER Hospital Encounter Ambulatory Treatment Center - [address], 2nd Floor, [place] [address] Marianela Hutchinson MD Lewandowski, Teresa M RN Adenocarcinoma of stomach Discharge Disposition: Home 05/19/2024 12:44 PM MACHINE FANCY STITCHER Anesthesia Event [facility] [address] [place] [address], 5th [place] [address] Maurice Ferrera MD Thomas, Ashly [facility] 05/19/2024 12:00 PM MACHINE FANCY STITCHER - 05/19/2024 1:10 PM MACHINE FANCY STITCHER Surgery [facility] [address] [place] [address] Main [facility], 5th [place] [address] Brandon Alcala MD UPPER GASTROINTESTINAL ENDOSCOPY OF ESOPHAGUS, STOMACH, OR DUODENUM ANDJ ADJACENT STRUCTURES, WITH ENDOSCOPIC ULTRASOUND EXAMINATION 05/19/2024 11:17 AM MACHINE FANCY STITCHER - 05/19/2024 2:49 PM MACHINE FANCY STITCHER Hospital Encounter [facility] Center [address] [place] [address] Main [facility], 5th [place] [address] Brandon Alcala MD Adenocarcinoma of stomach Discharge Disposition: Home 05/19/2024 Travel 05/18/2024 1:00 PM MACHINE FANCY STITCHER Infusion [facility] - [facility] Treatment [facility] [address] [facility], Floor 6 [place] [address] Marianela Hutchinson MD Rupp, Alexa B, RN Adenocarcinoma of stomach (Primary Dx) 05/18/2024 12:20 PM MACHINE FANCY STITCHER [facility] [address] [place] [address], [facility] [place] [address] Marianela Hutchinson MD Adenocarcinoma, NOS of stomach, NOS 05/18/2024 11:00 AM MACHINE FANCY STITCHER POEM Appointments [facility] Management Center [address] [place] [address] [place] [address] Marianela Hutchinson MD 05/18/2024 10:32 AM MACHINE FANCY STITCHER - 05/18/2024 11:59 PM MACHINE FANCY STITCHER Hospital Encounter [facility] [address] [place] [address] Gillian Gomez PA-C Adenocarcinoma, NOS of stomach, NOS Discharge Disposition: Home 05/18/2024 Orders Only [facility] [address] [place] [address], [address] [place] [address] Marianela Hutchinson MD Adenocarcinoma of stomach (Primary Dx) 05/18/2024 Orders Only [facility] [address] [place] [address] Radha Castellon [facility] Adenocarcinoma of stomach (Primary Dx); Iron deficiency anemia, not otherwise specified 05/18/2024 Travel 05/15/2024 11:59 PM MACHINE FANCY STITCHER Anesthesia Event [facility] [address] [place], [place] [address]ator [place] [address] Eri Lynne, RN 05/06/2024 5:30 PM MACHINE FANCY STITCHER Infusion [facility] - Blue [address] [facility], 8th [place] [address] Marianela Hutchinson MD Pagara, Leni S, RN Adenocarcinoma of stomach 05/04/2024 12:36 PM MACHINE FANCY STITCHER - 05/04/2024 11:59 PM MACHINE FANCY STITCHER Hospital Encounter Ambulatory Treatment Center - Main [address], 2nd Floor, [place] [address] Gillian Gomez PA-C Jo, Edifia Sungsoon, RN Adenocarcinoma of stomach (Primary Dx) Discharge Disposition: Home 05/04/2024 12:20 PM MACHINE FANCY STITCHER [facility] [address] [place] [address], 7th [place] [address] Marianela Hutchinson MD Adenocarcinoma, NOS of stomach, NOS 05/04/2024 11:10 AM MACHINE FANCY STITCHER - 05/04/2024 12:35 PM MACHINE FANCY STITCHER Hospital Encounter [facility] [address] [place], [place] [address] Gillian Gomez PA-C Adenocarcinoma, NOS of stomach, NOS; Adenocarcinoma of stomach Discharge Disposition: Home 05/04/2024 Orders Only [facility] [address] [place] [address], 7th [place] [address] Marianela Hutchinson MD Adenocarcinoma of stomach (Primary Dx) 05/04/2024 Orders Only [facility] [address] [place] [address], 7th Floor Elevator A [place] [phone] Radha Castellon [facility] Adenocarcinoma of stomach (Primary Dx) 05/04/2024 Travel 04/30/2024 Orders Only [facility] - Surgical Oncology [address] [place] [address], 7th [place] [address] Mary Kay Santamaria APRN Adenocarcinoma of stomach (Primary Dx); Paroxysmal atrial fibrillation; Hyperlipidemia, not otherwise specified; Type 2 diabetes mellitus with hyperglycemia 04/27/2024 8:05 PM MACHINE FANCY STITCHER Ancillary Procedure [facility] [address] [place] [address] Cancer 04/27/2024 8:00 PM MACHINE FANCY STITCHER Ancillary Procedure [facility] [address] [place] [address] Cancer 04/27/2024 Orders Only [facility] [address] [place] [address], 7th [place] [address] Donnell Van Adenocarcinoma of stomach (Primary Dx) 04/24/2024 Documentation [facility] [address] [facility], 8th [place] [address] Mary Kay Santamaria, FRANK 04/24/2024 Orders Only [facility] - Surgical Oncology [address] [place] [address], 7th [place] [address] Mary Kay Santamaria, SYSTEMS SUPPORT SPECIALIST Adenocarcinoma, NOS of stomach, NOS (Primary Dx) 04/24/2024 Telephone [facility] - Surgical Oncology [address] [place] [address], 7th [place] [address] Mary Kay Santamaria, FRANK 04/22/2024 Lab Requisition [facility] Sincere Moralez MD Jain, Shilpa, MD 04/21/2024 Orders Only [facility] [address] [place] [address], 7th [place] [address] Gillian Gomez PA-C Adenocarcinoma, NOS of stomach, NOS (Primary Dx); Adenocarcinoma of stomach 04/16/2024 Telephone [facility] [address] [place] [address] 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, muck miner blasting Call 04/15/2024 10:09 AM MACHINE FANCY STITCHER Anesthesia Event MAIN OR [address] [place], [place] [id number] Meenakshi Crowe MD Miller, Wendy, FINISHER ACCORDION 04/15/2024 10:05 AM MACHINE FANCY STITCHER - 04/15/2024 1:25 PM MACHINE FANCY STITCHER Surgery MAIN OR [address] [place] [address] John Fong MD ROBOTIC ASSISTED SURGICAL LAPAROSCOPY 04/15/2024 7:32 AM MACHINE FANCY STITCHER - 04/15/2024 11:50 PM MACHINE FANCY STITCHER Hospital Encounter MAIN OR [address] [place] [address] John Fong MD Adenocarcinoma of stomach (Primary Dx) Discharge Disposition: Home 04/15/2024 Travel 04/14/2024 2:30 PM MACHINE FANCY STITCHER Consult [facility] - Surgical Oncology [address] [place] [address] Main [facility], 7th [place] [address] Gillian Gomez PA-C Badgwell, Brian, MD Adenocarcinoma, NOS of stomach, NOS (Primary Dx); Nausea 04/14/2024 Documentation [facility] - Surgical Oncology [address] [place] [address], 7th [place] [address] John Fong MD 04/13/2024 3:00 PM MACHINE FANCY STITCHER Consult [facility] [address] [place] [address], 7th [place] [address] Marianela Hutchinson MD Mass of stomach (Primary Dx) 04/13/2024 2:02 PM MACHINE FANCY STITCHER Anesthesia Event [facility]ioperative Evaluation [facility] Management Center [address] [place] [address], 6th [place] [address] Curtis Moctezuma PA 04/12/2024 8:22 AM MACHINE FANCY STITCHER - 04/12/2024 3:42 PM MACHINE FANCY STITCHER Emergency MAIN P06B [address] [place] [address] Nghia Zhu MD Elsayem, Ahmed, MD Nausea and vomiting (Primary Dx); Gastric cancer; Pancreatitis Discharge Disposition: Left Against Medical Advice 04/12/2024 Travel 04/09/2024 8:25 PM MACHINE FANCY STITCHER Ancillary Procedure [facility] [address] [place] [address] Margoth Souza MD Cancer 04/09/2024 8:20 PM MACHINE FANCY STITCHER Ancillary Procedure [facility] [address] [place] [address] Margoth Souza MD Cancer 04/09/2024 8:15 PM MACHINE FANCY STITCHER Ancillary Procedure [facility] [address] [place] [address] Margoth Souza MD Cancer 04/09/2024 8:10 PM MACHINE FANCY STITCHER Ancillary Procedure [facility] [address] [place] [address] Margoth Souza MD Cancer 04/09/2024 8:05 PM MACHINE FANCY STITCHER Ancillary Procedure [facility] [address] [place] [address] Margoth Souza MD Cancer 04/09/2024 8:00 PM MACHINE FANCY STITCHER Ancillary Procedure [facility] [address] [place] [address] Margoth Souza MD Cancer 04/09/2024 10:48 AM MACHINE FANCY STITCHER - 04/09/2024 11:59 PM MACHINE FANCY STITCHER Hospital Encounter [facility] [address] [place] [address] Ceci Nicholson MD Encounter for other preprocedural examination; Atherosclerosis of coronary 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, not otherwise specified; 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 Discharge Disposition: Home 04/09/2024 10:00 AM MACHINE FANCY STITCHER POEM Appointments [facility] Management [facility] [address] [place] [address], 6th [place] [address] Margoht Souza MD 04/09/2024 9:56 AM MACHINE FANCY STITCHER - 04/09/2024 10:47 AM MACHINE FANCY STITCHER Hospital Encounter [facility] - Cardiology [address] [place] [address], 2nd [place] [address] Ceci Nicholson MD Adenocarcinoma of stomach; Hyperlipidemia, not otherwise specified; Encounter for other preprocedural examination; Atherosclerosis of coronary 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, not otherwise specified Discharge Disposition: Home 04/09/2024 9:00 AM MACHINE FANCY STITCHER Consult Perioperative Evaluation and Management [address] [place] [address], 6th [place] [address] Mary Kay Santamaria APRN Misoi, Mercy W, MD Encounter for other preprocedural examination (Primary Dx); Adenocarcinoma of stomach; Paroxysmal atrial fibrillation; Hypertension; 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; Hyperlipidemia, not otherwise specified; Current use of 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; Atherosclerosis of coronary 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, not otherwise specified 04/09/2024 Travel 04/08/2024 Prep for Surgery [facility] - Surgical Oncology [address] [place] [address], [address] [place] [phone] Mary Kay Santamaria APRN Adenocarcinoma of stomach (Primary Dx); Mass of stomach 04/08/2024 Orders Only [facility] [address] [place] [address], [address] [place] [phone] Mary Kay Santamaria APRN Adenocarcinoma of stomach (Primary Dx); Paroxysmal atrial fibrillation; Hypertension; 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; Hyperlipidemia, not otherwise specified; Current use of 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 04/08/2024 Orders Only [facility] [address] [place] [address], [address] [place] [address] Gillian Gomez PA-C Adenocarcinoma, NOS of stomach, NOS (Primary Dx) 04/06/2024 Orders [facility] [address] [place] [address], [address] [place] [phone] Roberto Poole PA 04/06/2024 Orders Only [facility] [address] [place] [address], [address] [place] [phone] Roberto Poole PA Mass of stomach (Primary Dx) 04/06/2024 Orders Only [facility] [address] [place] [address], [address] [place] [address] [place] [address] Roberto Poole PA Mass of stomach (Primary Dx) 04/06/2024 [facility]phone [facility] [address] [place] [address], [address] [place] [phone] Anais Meng RN 02/11/2024 Travel 02/10/2024 3:30 PM CDT Telemedicine [facility] [address] [place] [address], 7th [place] [address] Margoth Souza MD Renal mass (Primary Dx) 01/02/2024 7:15 AM CDT Ancillary Procedure MAIN OR [address] [place], [place] [phone] Margoth Souza MD 01/02/2024 7:00 AM CDT - 01/02/2024 11:40 AM CDT Surgery MAIN OR [address] [place] [address] Margoth Souza MD ROBOTIC ASSISTED PARTIAL NEPHRECTOMY 01/02/2024 6:58 AM CDT Anesthesia Event MAIN OR [address] [place] [address] Alonzo Liu MD Majekodumi, Jessy, PAXTON 01/02/2024 5:04 AM CDT - 01/03/2024 5:05 PM CDT Hospital Encounter MAIN P09B [address] [place] [address] Margoth Souza MD Renal mass (Primary Dx) Discharge Disposition: Home 01/02/2024 Travel 12/31/2023 1:04 PM CDT - 12/31/2023 11:59 PM CDT Hospital Encounter CT Imaging and Diagnostic Imaging [address] [place] [address], 3rd [place] [address] Margoth Souza MD Renal mass Discharge Disposition: Home 12/31/2023 8:00 AM CDT Consult [facility] [address] [place] [address], 6th [place] [address] Nakia Kirby APRN Khan, Sonya, MD Type 2 diabetes mellitus with hyperglycemia [E11.65] (Primary Dx); Pre-surgery evaluation 12/30/2023 9:30 AM CDT Office Visit [facility], 7th [place] [address] Margoth Souza MD Renal mass 12/30/2023 Travel 12/30/2023 Telephone [facility] [address] [place] [address], 6th [place] [address] Winnie Archibald, ARTURO Appointment (Cannot get internet-phone broke) 12/30/2023 Orders Only [facility] [address] 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); Endocrine/metabolic screening; Renal cell carcinoma <Left side> 12/25/2023 8:36 AM CDT Anesthesia Event [facility] [address] [place], [place] [address]ator [place] [address] Lien Antonio RN 12/23/2023 10:30 AM CDT Consult Perioperative Evaluation and Management [address] [place] [address] [place] [address] Margoth Souza MD Oh, Jeong, MD Encounter for other preprocedural examination (Primary Dx); Renal mass; Hyperlipidemia, not otherwise specified 12/23/2023 9:00 AM CDT POEM Appointments [facility] [address] [place] [phone] Margoth Souza MD Pre-surgery evaluation (Primary Dx) 12/23/2023 8:45 AM CDT - 12/23/2023 11:59 PM CDT Hospital Encounter [facility] [address] [place] [address] Margoth Souza MD Renal mass Discharge Disposition: Home 12/23/2023 Travel 12/09/2023 9:33 AM CDT - 12/09/2023 11:59 PM CDT Hospital Encounter [facility] [address] [place] [address] You-Evonne, Leah-Zora, SYSTEMS SUPPORT SPECIALIST 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; Endocrine/metabolic screening Discharge Disposition: Home 12/09/2023 8:30 AM CDT Consult Endocrine Center [address] [facility], 6th [place] [address] Mary Jane Cassidy MD 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); Endocrine/metabolic screening; Renal cell carcinoma <Left side> 12/09/2023 Travel 10/23/2023 Orders Only [facility] [address] [place] [address], 7th [place] [address] Roberto Poole PA Renal mass (Primary Dx); Adrenal mass 10/03/2023 9:30 AM CDT - 10/03/2023 11:59 PM CDT Hospital Encounter Interventional Radiology [address] [place] [address], 4th [place] [address] Shazia Arriaza MD McRae, Stephen, MD Renal mass Discharge Disposition: Home 10/03/2023 8:30 AM CDT - 10/03/2023 9:29 AM CDT Hospital Encounter [facility] [address] [place] [address] Margoth Souza MD Renal mass Discharge Disposition: Home 10/03/2023 Travel 10/02/2023 8:24 AM CDT - 10/02/2023 11:59 PM CDT Hospital Encounter Interventional Radiology [address] [place] [address], 4th [place] [address] Margoth Souza MD Ho, Thanh-Trang D, PA-C Encounter for other preprocedural examination (Primary Dx); Renal mass; 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 Discharge Disposition: Home 10/02/2023 Travel 09/24/2023 7:46 AM CDT - 09/24/2023 11:59 PM CDT Hospital Encounter [facility] [address] [place] [address] Roberto Poole PA Adrenal mass Discharge Disposition: Home 09/20/2023 Orders Only [facility] [address] [place] [address], 7th [place] [address] Roberto Poole PA Adrenal mass (Primary Dx) 09/19/2023 11:45 AM CDT Ancillary Procedure X-Ray Outpatient Center [address] [place] [address], 7th [place] [address] Shazia Arriaza MD Renal mass 09/19/2023 9:20 AM CDT - 09/19/2023 11:59 PM CDT Hospital Encounter [facility] [address] [place] [address] Shazia Arriaza MD Adenoma, NOS of adrenal gland, NOS <Left> Discharge Disposition: Home 09/19/2023 Orders Only Interventional Radiology [address] [place] [address], 4th [place] [address] Abilio Ng PA-C Renal mass (Primary Dx) 09/19/2023 Travel 09/19/2023 Telephone [facility] [address] [place] [phone] Barbara Rees MA 09/16/2023 4:00 PM CDT - 09/16/2023 11:59 PM CDT Hospital Encounter [facility] [address] [place] [address] Shazia Arriaza MD Renal mass; Adrenal mass Discharge Disposition: Home 09/16/2023 2:00 PM CDT Office Visit [facility] [address] [place] [address], [facility] [place] [address] Margoth Souza MD Renal mass (Primary Dx); Adrenal mass; Adenoma, NOS of adrenal gland, NOS <Left>; 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 09/16/2023 12:30 PM CDT NPR MDA PATIENT ACCESS 09/16/2023 Travel 08/08/2023 8:00 PM CDT Ancillary Procedure [facility] [address] [place] [address] Margoth Souza MD Cancer 08/08/2023 6:40 AM CDT Ancillary Procedure [facility] [address] [place] [address] Margoth Souza MD Cancer after 08/01/2023 Surgical History Surgery Date Site/Laterality Comments TOE AMPUTATION x2, 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, 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 APPENDECTOMY 05/20/1973 - 05/19/1974 Open WRIST SURGERY Left HAND SURGERY Right HIP ARTHRODESIS W/ ILIAC CRE ST BONE GRAFT Bilateral For hand surgeries CERVICAL SPINE SURGERY C3-6 fusion, x2 DE LAPAROSCOPY SURG PARTIAL NEPHRECTOMY 01/02/2024 Abdomen/Left Procedure: ROBOTIC ASSISTED PARTIAL NEPHRECTOMY; Surgeon: Margoth Souza MD; Location: MAIN OR; Service: UROLOGY DE ULTRASONIC GUIDANCE INTRAOPERATIVE 01/02/2024 Left Procedure: INTROPERATIVE ULTRASOUND - PERFORMED BY SURGEON; Surgeon: Margoth Souza MD; Location: MAIN OR; Service: UROLOGY CORONARY ARTERY BYPASS GRAFT 01/07/2024 DE LAPS ABD PRTM&OMENTUM DX W/WO SPEC BR/WA SPX 04/15/2024 Abdomen/N/A Procedure: ROBOTIC ASSISTED SURGICAL LAPAROSCOPY; Surgeon: John Fong MD; Location: MAIN OR; Service: SURG ONC - GASTRIC/HIPEC Medical devices from this surgery are in the Medical Devices section. DE FLUORO CENTRAL VENOUS ACC ESS DEV PLACEMENT 04/15/2024 Neck/N/A Procedure: FLUORO GUIDANCE FOR CENTRAL VENOUS ACCESS DEVICE PLACEMENT, REPLACEMENT, OR REMOVAL; Surgeon: John Fong MD; Location: MAIN OR; Service: SURG ONC - GASTRIC/HIPEC Medical devices from this surgery are in the Medical Devices section. DE US VASC ACCESS SITS VSL P ATENCY NDL ENTRY 04/15/2024 N/A Procedure: US GUIDANCE WITH EVAL OF POTENTIAL ACCESS SITES, REALTIME US VISUALIZATION OF VASC NEEDLE ENTRY; Surgeon: John Fong MD; Location: MAIN OR; Service: SURG ONC - GASTRIC/HIPEC Medical devices from this surgery are in the Medical Devices section. DE INSJ TUNNELED CTR VAD W/S UBQ PORT AGE 5 YR/> 04/15/2024 Neck/N/A Procedure: PORT-A-CATH PLACEMENT; Surgeon: John Fong MD; Location: MAIN OR; Service: SURG ONC - GASTRIC/HIPEC Medical devices from this surgery are in the Medical Devices section. DE ESOPHAGOGASTRODUODENOSCOP Y US SCOPE W/ADJ STRXRS 05/19/2024 Esophagus/N/A Procedure: UPPER GASTROINTESTINAL ENDOSCOPY OF ESOPHAGUS, STOMACH, OR DUODENUM ANDJ ADJACENT STRUCTURES, WITH ENDOSCOPIC ULTRASOUND EXAMINATION; Surgeon: Brandon Alcala MD; Location: MAIN ENDOSCOPY; Service: GASTROENTEROLOGY DE ESOPHAGOGASTRODUODENOSCOP Y TRANSORAL DIAGNOSTIC 06/30/2024 Esophagus/N/A Procedure: [...] to have multivessel CAD Diabetic ketoacidosis 11/2023 Hospital ed locally 12/03/2023-12/06/2023 of note, pt was on [facility] Peripheral vascular disease 2023 Left LE s/p [...] on file Legal Sex Male 11:38 AM MACHINE FANCY STITCHER Gender Identity Not on file Sexual Orientation Not on file Occupation Industry Job Start Date Job End Date retired from [employer] Not on file N ot on file Not on file Travel History Travel Start Travel End [place] 04/12/2024 04/12/2024 Obstetrics History Last Filed Vital Signs Vital Sign Reading Time Taken Comments Blood Pressure 147/83 07/16/2024 2:11 PM MACHINE FANCY STITCHER Pulse 78 07/16/2024 2:11 PM MACHINE FANCY STITCHER Temperature 36.5 C (97.7 F) 07/16/2024 2:11 PM CS T Respiratory Rate 18 07/16/2024 2:11 PM MACHINE FANCY STITCHER Oxygen Saturation 98% 07/16/2024 2:11 PM MACHINE FANCY STITCHER Inhaled Oxygen Concentration - - Weight 38.7 kg (85 lb 4.8 oz) 07/16/2024 2:11 PM MACHINE FANCY STITCHER Height 188 cm (6' 2") 05/19/2024 11:53 AM MACHINE FANCY STITCHER Body Mass Index 10.95 05/19/2024 11:53 AM MACHINE FANCY STITCHER Plan of Treatment Upcoming Encounters Date Type Department Care Team (Late st Contact Info) Description 08/06/2024 8:30 AM CDT Appointment Diagnostic [facility] [address] [place] [address] Marianela Hutchinson MD [address] [place] [phone] [email or web address] 08/06/2024 9:20 AM CDT Follow-Up [facility] Center [address] [place] [address], 7th [place] [address] Marianela Hutchinson MD [address] [place] [phone] [email or web address] 08/06/2024 9:45 AM CDT Infusion [facility] - [facility] [address] [place] [address], 8th [place] [address] Marianela Hutchinson MD [address] [place] [phone] [email or web address] 08/20/2024 11:30 AM CDT Appointment [facility] [address] [place] [address] Marianela Hutchinson MD [address] [place] [address] [email or web address] 08/20/2024 12:30 PM CDT Infusion Ambulatory Treatment [place] - [facility] [address] [place] [address], 8th [place] [address] Marianela Hutchinson MD [address] [place] [address] [email or web address] 09/03/2024 11:30 AM CDT Appointment [facility] [address] [place] [address] Marianela Hutchinson MD [address] [place] [phone] [email or web address] 09/03/2024 12:30 PM CDT Infusion Ambulatory Treatment [place] [facility] [place] [address] [place] [address], 8th [place] [address] Marianela Hutcihnson MD [address] [place] [address] [email or web address] 02/01/2025 11:30 AM CDT Appointment [facility] [address] [place] [address] Veronica Del Castillo, SYSTEMS SUPPORT SPECIALIST [address] [place] [address] [email or web address] 02/01/2025 11:[address] Imaging and Diagnostic Imaging [address] [place] [address], 3rd [place] [address] Veronica Del Castillo, FRANK [facility] [place] [address] [email or web address] 02/01/2025 3:00 PM CDT Follow-Up Endocrine Center [address] [place] [address], 6th [place] [address] Mary Jane Cassidy MD [address] [place] [phone] [email or web address] 02/05/2025 10:45 AM CDT Lab [facility] [address] [place] [address], [facility] Floor [facility] [place] [address] Margoth Souza MD [address] [place] [address] [email or web address] 02/05/2025 11:15 AM CDT Ancillary Procedure X-Ray Outpatient Center [address] [place] [address], 7th Floor [facility] [place] [address] Margoth Souza MD [address] [place] [phone] [email or web address] 02/05/2025 11:55 AM CDT Ancillary Procedure CT Imaging [address] [place] [address], [address] [place], [place] [address] [address] Margoth Souza MD [address] [place] [address] [email or web address] 02/08/2025 2:30 PM CDT Telemedicine [facility] [address] [place] [address], 7th [place] [address] Margoth Souza MD [address] [place] [phone] [email or web address] Maintenance Due Date Last Done Comments COVID-19 Vaccine (#1) 01/09/1969 Pneumococcal Vaccine: 50+ Years (1 of 2 - PCV) 983 01/09/1975 Influenza Vaccine (#1) 2024 08/04/2018 Medical Devices Implanted Type Area Party Plan Sales Host/Hostess Device Identifier Shelf Expiration Date Model / Serial / Lot Slade Muhammad 6fr - [id number] Implanted:Qty: 1 on 04/15/2024 by John Fong MD at [facility] Implant Right: Neck BARD ACCESS SYSTEMS 12/17/2024 [id number] / / [id number] Procedures Procedure Name Priority Date/Time Associated Diagnosis Comments CT CHEST ABDOMEN PELVIS W CONTRAST Routine 07/15/2024 4:38 PM MACHINE FANCY STITCHER Adenocarcinoma of stomach .CBC Routine 07/15/2024 10:01 AM MACHINE FANCY STITCHER Adenocarcinoma of stomach CARCINOEMBRYONIC ANTIGEN Routine 025 10:01 AM MACHINE FANCY STITCHER Adenocarcinoma of stomach LACTATE DEHYDROGENASE Routine 07/15/2024 10:01 AM MACHINE FANCY STITCHER Adenocarcinoma of stomach PHOSPHORUS LEVEL Routine 07/15/2024 10:01 AM MACHINE FANCY STITCHER Adenocarcinoma of stomach MAGNESIUM LEVEL Routine 07/15/2024 10:01 AM MACHINE FANCY STITCHER Adenocarcinoma of stomach COMPREHENSIVE METABOLIC PANEL Routine 10:01 AM MACHINE FANCY STITCHER Adenocarcinoma of stomach COMPLETE BLOOD COUNT W/ DIFFERENTIAL Routine 07/15/2024 10:01 AM MACHINE FANCY STITCHER Adenocarcinoma of stomach RESEARCH PROTOCOL [id number] Routine 07/15 10:01 AM MACHINE FANCY STITCHER Adenocarcinoma of stomach [facility] AP IHC WORKUP Routine 07/07/2024 12:29 PM MACHINE FANCY STITCHER Adenocarcinoma of stomach POC GLUCOSE SCREEN Routine 06/30/2024 1:23 PM MACHINE FANCY STITCHER PATHOLOGY BIOPSY INTERPRETATION Routine 06/30/2024 12:51 PM MACHINE FANCY STITCHER Adenocarcinoma of stomach DE ESOPHAGOGASTRODUODENOSCOP Y TRANSORAL DIAGNOSTIC 06/30/2024 12:15 PM MACHINE FANCY STITCHER Adenocarcinoma of stomach Case Notes 06/12 per gene to schedule on 06/30, per tor to schedule 06/30 thru lunch last AM case, slot held to offer. LVM and sent mychart to schedule-DC Special Needs DRY END OPERATOR CHRIS COMPLETE 06/18.DRY END OPERATOR CHRIS LVM FOR DAUGHTER WITH DETAILED INSTRUCTIONS FOR PROCEDURE IN ADDITION TO HOLD ON PLAVIX FOR 5 DAYS.DRY END OPERATOR CHRIS LVM 1ST CALL 06/16. POC CHEM 8 Routine 06/30/2024 11:10 AM MACHINE FANCY STITCHER POC GLUCOSE SCREEN Routine 06/30/2024 10:52 AM MACHINE FANCY STITCHER POC CHEM 8 Routine 06/29/2024 9:54 AM MACHINE FANCY STITCHER EKG, 12-LEAD (SCHEDULED) Routine 06/29/2024 Adenocarcinoma of stomach PETCT F18 FDG (FLUORODEOXYGLUCOSE) WITH CONTRAST Routine 06/20/2024 12:42 PM MACHINE FANCY STITCHER Adenocarcinoma, NOS of stomach, NOS Malignant neoplasm of overlapping sites of esophagus POC GLUCOSE SCREEN Routine 06/20/2024 11:06 AM MACHINE FANCY STITCHER .CBC Routine 06/20/2024 10:35 AM MACHINE FANCY STITCHER Adenocarcinoma, NOS of stomach, NOS CARCINOEMBRYONIC ANTIGEN Routine 025 10:35 AM MACHINE FANCY STITCHER Adenocarcinoma, NOS of stomach, NOS LACTATE DEHYDROGENASE Routine 06/20/2024 10:35 AM MACHINE FANCY STITCHER Adenocarcinoma, NOS of stomach, NOS PHOSPHORUS LEVEL Routine 06/20/2024 10:35 AM MACHINE FANCY STITCHER Adenocarcinoma, NOS of stomach, NOS MAGNESIUM LEVEL Routine 06/20/2024 10:35 AM MACHINE FANCY STITCHER Adenocarcinoma, NOS of stomach, NOS COMPREHENSIVE METABOLIC PANEL Routine 10:35 AM MACHINE FANCY STITCHER Adenocarcinoma, NOS of stomach, NOS COMPLETE BLOOD COUNT W/ DIFFERENTIAL Routine 06/20/2024 10:35 AM MACHINE FANCY STITCHER Adenocarcinoma, NOS of stomach, NOS .CBC Routine 06/15/2024 10:39 AM MACHINE FANCY STITCHER Adenocarcinoma of stomach CARCINOEMBRYONIC ANTIGEN Routine 025 10:39 AM MACHINE FANCY STITCHER Adenocarcinoma, NOS of stomach, NOS LACTATE DEHYDROGENASE Routine 06/15/2024 10:39 AM MACHINE FANCY STITCHER Adenocarcinoma, NOS of stomach, NOS PHOSPHORUS LEVEL Routine 06/15/2024 10:39 AM MACHINE FANCY STITCHER Adenocarcinoma, NOS of stomach, NOS MAGNESIUM LEVEL Routine 06/15/2024 10:39 AM MACHINE FANCY STITCHER Adenocarcinoma, NOS of stomach, NOS COMPREHENSIVE METABOLIC PANEL Routine 10:39 AM MACHINE FANCY STITCHER Adenocarcinoma of stomach COMPLETE BLOOD COUNT W/ DIFFERENTIAL Routine 06/15/2024 10:39 AM MACHINE FANCY STITCHER Adenocarcinoma of stomach .CBC Routine 06/01/2024 11:10 AM MACHINE FANCY STITCHER Adenocarcinoma of stomach TRANSFERRIN Routine 06/01/2024 11:10 AM MACHINE FANCY STITCHER Iron deficiency anemia, not otherwise specified Adenocarcinoma of stomach FERRITIN Routine 06/01/2024 11:10 AM MACHINE FANCY STITCHER Iron deficiency anemia, not otherwise specified Adenocarcinoma of stomach IRON LEVEL Routine 06/01/2024 11:10 AM MACHINE FANCY STITCHER Iron deficiency anemia, not otherwise specified Adenocarcinoma of stomach COMPREHENSIVE METABOLIC PANEL Routine 11:10 AM MACHINE FANCY STITCHER Adenocarcinoma of stomach COMPLETE BLOOD COUNT W/ DIFFERENTIAL Routine 06/01/2024 11:10 AM MACHINE FANCY STITCHER Adenocarcinoma of stomach POC GLUCOSE SCREEN Routine 05/19/2024 1:52 PM MACHINE FANCY STITCHER PATHOLOGY BIOPSY INTERPRETATION Routine 05/19/2024 1:10 PM MACHINE FANCY STITCHER Adenocarcinoma of stomach DE ESOPHAGOGASTRODUODENOSCOP Y US SCOPE W/ADJ STRXRS 05/19/2024 12:34 PM MACHINE FANCY STITCHER Adenocarcinoma of stomach Case Notes 04/24- WAITING FOR TRIAGE TO MI FOR 05/01- Special Needs DRY END OPERATOR Mtichlissa Call Completed 04/30/24ad laproscopy on 04/15/24 POC GLUCOSE SCREEN Routine 05/19/2024 12:21 PM MACHINE FANCY STITCHER .CBC Routine 05/18/2024 10:55 AM MACHINE FANCY STITCHER Adenocarcinoma, NOS of stomach, NOS CARCINOEMBRYONIC ANTIGEN Routine 024 10:55 AM MACHINE FANCY STITCHER Adenocarcinoma, NOS of stomach, NOS LACTATE DEHYDROGENASE Routine 05/18/2024 10:55 AM MACHINE FANCY STITCHER Adenocarcinoma, NOS of stomach, NOS PHOSPHORUS LEVEL Routine 05/18/2024 10:55 AM MACHINE FANCY STITCHER Adenocarcinoma, NOS of stomach, NOS MAGNESIUM LEVEL Routine 05/18/2024 10:55 AM MACHINE FANCY STITCHER Adenocarcinoma, NOS of stomach, NOS COMPREHENSIVE METABOLIC PANEL Routine 10:55 AM MACHINE FANCY STITCHER Adenocarcinoma, NOS of stomach, NOS COMPLETE BLOOD COUNT W/ DIFFERENTIAL Routine 05/18/2024 10:55 AM MACHINE FANCY STITCHER Adenocarcinoma, NOS of stomach, NOS .CBC Routine 05/04/2024 11:34 AM MACHINE FANCY STITCHER Adenocarcinoma, NOS of stomach, NOS RESEARCH PROTOCOL [id number] Routine 05/04 11:34 AM MACHINE FANCY STITCHER Adenocarcinoma of stomach CARCINOEMBRYONIC ANTIGEN Routine 024 11:34 AM MACHINE FANCY STITCHER Adenocarcinoma, NOS of stomach, NOS LACTATE DEHYDROGENASE Routine 05/04/2024 11:34 AM MACHINE FANCY STITCHER Adenocarcinoma, NOS of stomach, NOS PHOSPHORUS LEVEL Routine 05/04/2024 11:34 AM MACHINE FANCY STITCHER Adenocarcinoma, NOS of stomach, NOS MAGNESIUM LEVEL Routine 05/04/2024 11:34 AM MACHINE FANCY STITCHER Adenocarcinoma, NOS of stomach, NOS COMPREHENSIVE METABOLIC PANEL Routine 11:34 AM MACHINE FANCY STITCHER Adenocarcinoma, NOS of stomach, NOS COMPLETE BLOOD COUNT W/ DIFFERENTIAL Routine 05/04/2024 11:34 AM MACHINE FANCY STITCHER Adenocarcinoma, NOS of stomach, NOS VERIFY CATHETER TIP PLACEMENT Routine 3:50 PM MACHINE FANCY STITCHER Adenocarcinoma of stomach POC GLUCOSE SCREEN Routine 04/15/2024 3:21 PM MACHINE FANCY STITCHER XR CHEST 1 VW PORTABLE Routine 2:45 PM MACHINE FANCY STITCHER POC GLUCOSE SCREEN Routine 04/15/2024 1:05 PM MACHINE FANCY STITCHER POC GLUCOSE SCREEN Routine 04/15/2024 12:52 PM MACHINE FANCY STITCHER CYTOLOGY NON-B2B SALES REPRESENTATIVE INTERPRETATION Routine 04/15/2024 12:33 PM MACHINE FANCY STITCHER Adenocarcinoma of stomach PATHOLOGY SURGICAL INTERPRETATION Routine 04/15/2024 12:13 PM MACHINE FANCY STITCHER Adenocarcinoma of stomach FL CENTRAL VENOUS PLACE EXCHANGE Routine 04/15/2024 11:40 AM MACHINE FANCY STITCHER Adenocarcinoma of stomach POC GLUCOSE SCREEN Routine 04/15/2024 9:22 AM MACHINE FANCY STITCHER DE INSJ TUNNELED CTR VAD W/SUBQ PORT AGE 5 YR/> 04/15/2024 9:16 AM MACHINE FANCY STITCHER Adenocarcinoma of stomach Special Needs MTL@0800 DE US VASC ACCESS SITS VSL PATENCY NDL ENTRY 04/15/2024 9:16 AM MACHINE FANCY STITCHER Adenocarcinoma of stomach Special Needs MTL@0800 DE FLUORO CENTRAL VENOUS ACCESS DEV PLACEMENT 04/15/2024 9:16 AM MACHINE FANCY STITCHER Adenocarcinoma of stomach Special Needs MTL@0800 DE LAPS ABD PRTM&OMENTUM DX W/WO SPEC BR/WA SPX 04/15/2024 9:16 AM MACHINE FANCY STITCHER Adenocarcinoma of stomach Special Needs MTL@0800 CT ABDOMEN PELVIS W CONTRAST Routine 11:18 AM MACHINE FANCY STITCHER .CBC Routine 04/12/2024 9:04 AM MACHINE FANCY STITCHER LIPASE LEVEL Routine 04/12/2024 9:04 AM MACHINE FANCY STITCHER AMYLASE LEVEL Routine 04/12/2024 9:04 AM MACHINE FANCY STITCHER LACTATE DEHYDROGENASE Routine 04/12/2024 9:04 AM MACHINE FANCY STITCHER FRACTIONATED BILIRUBIN Routine 9:04 AM MACHINE FANCY STITCHER PHOSPHORUS LEVEL Routine 04/12/2024 9:04 AM MACHINE FANCY STITCHER MAGNESIUM LEVEL Routine 04/12/2024 9:04 AM MACHINE FANCY STITCHER COMPREHENSIVE METABOLIC PANEL Routine 9:04 AM MACHINE FANCY STITCHER COMPLETE BLOOD COUNT W/ DIFFERENTIAL Routine 04/12/2024 9:04 AM MACHINE FANCY STITCHER .CBC Routine 04/09/2024 11:09 AM MACHINE FANCY STITCHER Encounter for other preprocedural examination Atherosclerosis of coronary 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, not otherwise specified THYROID STIMULATING HORMONE Routine 03/21 11:09 AM MACHINE FANCY STITCHER Encounter for other preprocedural examination Atherosclerosis of coronary 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, not otherwise specified HEMOGLOBIN A1C Routine 04/09/2024 11:09 AM MACHINE FANCY STITCHER 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 Encounter for other preprocedural examination COMPREHENSIVE METABOLIC PANEL Routine 11:09 AM MACHINE FANCY STITCHER Encounter for other preprocedural examination Atherosclerosis of coronary 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, not otherwise specified COMPLETE BLOOD COUNT W/ DIFFERENTIAL Routine 04/09/2024 11:09 AM MACHINE FANCY STITCHER Encounter for other preprocedural examination Atherosclerosis of coronary 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, not otherwise specified EKG, 12-LEAD (SCHEDULED) Routine 04/09/2024 Adenocarcinoma of stomach Hyperlipidemia, not otherwise specified Encounter for other preprocedural examination Atherosclerosis of coronary 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, not otherwise specified PATHOLOGY OUTSIDE INTERPRETATION Routine 04/02/[address] ABDOMEN AND PELVIS Routine 2023 8:21 AM MACHINE FANCY STITCHER Cancer OSI CHEST Routine 03/23/2024 7:37 PM MACHINE FANCY STITCHER Cancer OSI CT CHEST ABDOMEN PELVIS Routine 08/2023 7:37 PM MACHINE FANCY STITCHER Cancer OSI CHEST Routine 03/23/2024 7:37 PM MACHINE FANCY STITCHER Cancer OSI CT CHEST Routine 03/22/2024 8:21 AM MACHINE FANCY STITCHER Cancer OSI CT ABDOMEN AND PELVIS Routine [...] INTRAOPERATIVE US STAT 01/02/2024 7:13 AM CDT DE ULTRASONIC GUIDANCE INTRAOPERATIVE 01/02/2024 6:08 AM CDT Renal mass Special Needs [id number] [id number]:Please collect and send tissue to pathology window with appropriate label. DE LAPAROSCOPY SURG PARTIAL NEPHRECTOMY 01/02/2024 6:08 AM CDT Renal mass Special Needs [id number] [id number]:Please collect and send tissue to pathology window [...] 09/16/2023 4:23 PM CDT Renal mass after 08/01/2023 Results * CT Chest Abdomen Pelvis with Contrast (07/15/2024 4:38 PM MACHINE FANCY STITCHER) Anatomical Region Laterality Modality Abdomen, Pelvis, Chest Computed Tomography 07/15/2024 5:39 PM MACHINE FANCY STITCHER Impressions 07/15/2024 9:45 PM MACHINE FANCY STITCHER 1. Redemonstration of diffuse wall thickening of [...] and potentially actionable. Narrative 07/15/2024 9:45 PM MACHINE FANCY STITCHER FULL RESULT: Examination: CT CHEST ABDOMEN PELVIS [...] cm, likely a sebaceous cyst. Procedure Note Cefeirno Ling MD - 07/15/2024 FULL RESULT: Examination: [...] CT ORDERABLES Final Result * Research Protocol [id number] (07/15/2024 10:01 AM MACHINE FANCY STITCHER) Only the most recent of2 resultswithin the time period is included. Research Protocol Specimen Specimen Collected, Ready for Pickup. 07/15/2024 12:00 PM MACHINE FANCY STITCHER [facility] Blood Venipuncture / Unknown 07/15/2024 10:01 AM MACHINE FANCY STITCHER 07/15/2024 10:10 AM MACHINE FANCY STITCHER Marianela Hutchinson MD RESEARCH LAB Z CODES Final Re sult [facility] Unless otherwise noted, all lab tests performed by: Division of Pathology and Laboratory Medicine [address] [place] [address] [place] [address] * (ABNORMAL) .CBC (07/15/2024 10:01 AM RUST) Only the most recent of11 resultswithin the time period is included. Pathologist [facility] White Blood Cell 6.7 4.1 - 10.5 K/uL 07/15/2024 10:33 AM [facility] Red Blood Cell 4.91 4.30 - 6.04 M/uL 07/15/2024 10:33 AM [facility] Hemoglobin 12.4(L) 13.3 - 17.4 g/dL 07/15/2024 10:33 AM [facility] Hematocrit 37.8(L) 39.5 - 51.8 % 07/15/2024 10:33 AM [facility] Mean Cell Volume 77(L) 82 - 99 fL 07/15/2024 10:33 AM [facility] Mean Cell Hemoglobin 25.3(L) 26.6 - 33.2 pg 07/15/2024 10:33 AM [facility] Mean Cell Hemoglobin Concentration 32.8 31.1 - 35.2 g/dL 07/15/2024 10:33 AM [facility] RDW-SD 40.9 37.5 - 49.7 fL 07/15/2024 10:33 AM [facility] Red Cell Diameter Width 14.8 11.6 - 15.5 % 07/15/2024 10:33 AM [facility] Platelet 226 160 - 397 K/uL 07/15/2024 10:33 AM [facility] Mean Platelet Volume 9.6 9.1 - 12.6 fL 07/15/2024 10:33 AM [facility] INRBC 0.0 0.0 - 0.1 /100 WBC 07/15/2024 10:33 AM [facility] Comment: The INRBC (instrument NRBC) value reflects the enumeration of nucleated red blood cells contained in a 200uL sample of whole blood analyzed by the instrument. This value may differ from the NRBC value reported in a manual differential, which is based on a 100 cell differential. Neutrophil % 63.5 43.2 - 72.7 % 07/15/2024 10:33 AM [facility] Lymphocyte % 25.4 16.8 - 46.2 % 07/15/2024 10:33 AM [facility] Monocyte % 8.5 5.1 - 12.5 % 07/15/2024 10:33 AM [facility] Eosinophil % 2.1 0.4 - 6.3 % 07/15/2024 10:33 AM [facility] Basophil % 0.4 0.2 - 1.4 % 07/15/2024 10:33 AM [facility] IGRE % 0.1 0.1 - 1.5 % 07/15/2024 10:33 AM [facility] Comment:The IGRE% includes M etamyelocytes, Myelocytes and Promyelocytes. Neutrophil Abs 4.25 1.95 - 7.25 K/uL 07/15/2024 10:33 AM [facility] Lymphocyte Abs 1.70 1.01 - 3.24 K/uL 07/15/2024 10:33 AM [facility] Monocyte Abs 0.57 0.24 - 0.85 K/uL 07/15/2024 10:33 AM [facility] Eosinophil Abs 0.14 0.02 - 0.50 K/uL 07/15/2024 10:33 AM [facility] Basophil Abs 0.03 0.02 - 0.09 K/uL 07/15/2024 10:33 AM [facility] IG Abs 0.01 0.01 - 0.12 K/uL 07/15/2024 10:33 AM [facility] Blood Peripheral blood specimen / Unknown Venipuncture / Unknown 07/15/2024 10:01 AM RUST 07/15/2024 10:09 AM RUST Gillian Gomez PA-C LAB BLOOD ORDERABLES Final Result [facility] Unless otherwise noted, all lab tests performed by: Division of Pathology and Laboratory Medicine [address] [place] [phone] * (ABNORMAL) CMP (07/15/2024 10:01 AM RUST) Only the most recent of10 resultswithin the time period is included. Bilirubin Total 0.4 0.0 - 1.2 mg/dL 07/15/2024 11:15 AM [facility] Comment:Indocyanine Green (I CG) may cause falsely elevated bilirubin results. Total and direct bilirubin must not be measured from samples containing indocyanine green. False elevation of total bilirubin can be seen in patients with IgG concentrations above 28 g/L. eGFR 98 >=60 mL/min/1. 73 sq. m 07/15/2024 11:15 AM [facility] Comment: The eGFRcr is calculated with [...] 6.4 - 8.3 gm/dL 07/15/2024 11:15 AM [facility] Calcium Level Total 9.6 8.2 - 10.2 mg/dL 07/15/2024 11:15 AM [facility] Alkaline Phosphatase 117 40 - 129 U/L 07/15/2024 11:15 AM [facility] Albumin Level 4.4 3.5 - 5.2 gm/dL 07/15/2024 11:15 AM [facility] AST 22 <=40 U/L 07/15/2024 11:15 AM [facility] ALT 13 <=41 U/L 07/15/2024 11:15 AM [facility] Sodium Level 138 136 - 145 mmol/L 07/15/2024 11:15 AM [facility] Potassium Level 4.1 3.4 - 4.5 mmol/L 07/15/2024 11:15 AM [facility] Chloride 101 98 - 107 mmol/L 07/15/2024 11:15 AM [facility] CO2 27 22 - 29 mmol/L 07/15/2024 11:15 AM [facility] Anion Gap 10 4 - 14 mmol/L 07/15/2024 11:15 AM [facility] Creatinine 0.90 0.67 - 1.17 mg/dL 07/15/2024 11:15 AM [facility] BUN 10 6 - 23 mg/dL 07/15/2024 11:15 AM [facility] Glucose Level 181(H) 70 - 99 mg/dL 07/15/2024 11:15 AM [facility] Comment: Effective 12/14/15, the glucose reference intervals have been updated based on [place] Diabetes [employer] guidelines (Standards of Medical Care [...] Unknown Venipuncture / Unknown 07/15/2024 10:01 AM MACHINE FANCY STITCHER 07/15/2024 10:09 AM RUST us Gillian Gomez PA-C LAB BLOOD ORDERABLES Final Result [facility] Unless otherwise noted, all lab tests performed by: Division of Pathology and Laboratory Medicine [address] [place] [id number] * Phosphorus Level (07/15/2024 10:01 AM RUST) Only the most recent of6 resultswithin the time period is included. Phosphorus Level 2.7 2.5 - 4.5 mg/dL 07/15/2024 11:15 AM MACHINE FANCY STITCHER [facility] Blood Peripheral blood specimen / Unknown Venipuncture / Unknown 07/15/2024 10:01 AM MACHINE FANCY STITCHER 07/15/2024 10:09 AM MACHINE FANCY STITCHER Gillian Gomez PA-C LAB BLOOD ORDERABLES Final Result Performing Organization Address City/[facility] Co de Phone Number [facility] Unless otherwise noted, all lab tests performed by: Division of Pathology and Laboratory Medicine [address] [place] [id number] * Magnesium Level (07/15/2024 10:01 AM MACHINE FANCY STITCHER) Only the most recent of6 resultswithin the time period is included. Magnesium Level 1.8 1.6 - 2.6 mg/dL 07/15/2024 11:15 AM MACHINE FANCY STITCHER [facility] Blood Peripheral blood specimen / Unknown Venipuncture / Unknown 07/15/2024 10:01 AM MACHINE FANCY STITCHER 07/15/2024 10:09 AM MACHINE FANCY STITCHER Gillian Gomez PA-C LAB BLOOD ORDERABLES Final Result Performing Organization Address City/[facility] de Phone Number [facility] Unless otherwise noted, all lab tests performed by: Division of Pathology and Laboratory Medicine [address] [place] [phone] * LDH (07/15/2024 10:01 AM MACHINE FANCY STITCHER) Only the most recent of6 resultswithin the time period is included. LDH 202 135 - 225 U/L 07/15/2024 11:15 AM MACHINE FANCY STITCHER [facility] Blood Peripheral blood specimen / Unknown Venipuncture / Unknown 07/15/2024 10:01 AM MACHINE FANCY STITCHER 07/15/2024 10:09 AM MACHINE FANCY STITCHER Narrative [facility] - 07/15/2024 11:15 AM MACHINE FANCY STITCHER Results greater than 1651 U/L may not be reliable due to matrix effect with extended dilution as it exceeds the cad designer drafter's recommended limit. Caution should be exercised when interpreting such values and done in conjunction with clinical context. us Gillian Gomez PA-C LAB BLOOD ORDERABLES Final Result Performing Organization Address City/[facility] Co de Phone Number [facility] Unless otherwise noted, all lab tests performed by: Division of Pathology and Laboratory Medicine [address] [place] [phone] * CEA (07/15/2024 10:01 AM MACHINE FANCY STITCHER) Only the most recent of5 resultswithin the time period is included. Carcinoembryonic Antigen 3.0 <=3.8 ng/mL 07/15/2024 11:26 AM MACHINE FANCY STITCHER [facility] Blood Peripheral blood specimen / Unknown Venipuncture / Unknown 07/15/2024 10:01 AM MACHINE FANCY STITCHER 07/15/2024 10:09 AM MACHINE FANCY STITCHER Narrative [facility] - 07/15/2024 11:26 AM MACHINE FANCY STITCHER Reference Ranges (age 20-69 years): Non-smoker: <= 3.8 ng/mL Smoker: <= 5.5 ng/mL This test is measured by electrochemiluminescence immunoassay on Cornelius Nikki immunoassay analyzers. Results obtained in different methods are not interchangeable. us Gillian Gomez PA-C LAB BLOOD ORDERABLES Final Result Performing Organization Address [facility] de Phone Number [facility] Unless otherwise noted, all lab tests performed by: Division of Pathology and Laboratory Medicine [address] [place] [phone] * IHC Workup (07/07/2024 12:29 PM MACHINE FANCY STITCHER) Tissue 07/07/2024 12:2 9 PM MACHINE FANCY STITCHER 07/07/2024 12:29 PM MACHINE FANCY STITCHER us Gillian Gomez PA-C [facility] BIOMARKER ORDERABLE S Final Result Performing Organization Address [facility] Co de Phone Number [facility] [address] [address], [place] * (ABNORMAL) POC Glucose Screen - Fingerstick (06/30/2024 1:23 PM MACHINE FANCY STITCHER) Only the most recent of24 resultswithin the time period is included. Pathologist [facility] Glucose Screen 168(H) 70 - 99 mg/dL 06/30/2024 1:25 PM MACHINE FANCY STITCHER [facility] POC Sample Type Capillary 06/30/2024 1:25 PM MACHINE FANCY STITCHER [facility] Blood 06/30/2024 1:23 PM MACHINE FANCY STITCHER 06/30/2024 1:25 PM MACHINE FANCY STITCHER Narrative [facility] - 06/30/2024 1:25 PM MACHINE FANCY STITCHER Capillary blood samples, e.g. obtained by fingerstick, [...] POCT ORDERABLES - DE VICE Final Result [facility] Unless otherwise noted, all lab tests performed by: Division of Pathology and Laboratory Medicine [address] [place] [phone] * Pathology Biopsy Interpretation (06/30/2024 12:51 PM MACHINE FANCY STITCHER) Only the most recent of3 resultswithin the time period is included. Pathologist [facility] Addendum 1 By immunohistochemistry, approximately 10% of the tumor cells show weakly to moderately cytoplasmic staining for claudin 18. By immunohistochemistry the combined positive score (CPS) for PD-L1 is <1. 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 07/10/2024 8:47 AM [facility] Gross Description A: Esophagus, lower esophageal ulcer at 37cm: Multiple soft light castillo tissue fragments, 0.7 x 0.6 x 0.1 cm in aggregate, entirely submitted in A1. ET 07/10/2024 8:47 AM [facility] Biomarker Block(s) Block for biomarker testing: A1 07/10/2024 8:47 AM [facility] Disclaimer "Some tests reported here may have been developed and performance characteristics determined by [facility] Pathology and Laboratory Medicine. These tests have not been specifically cleared or approved by the U.S. Food and Drug Administration. If applicable, controls were reviewed and showed appropriate reactivity." 07/10/2024 8:47 AM [facility] Tissue (Esophagus) 06/30/2024 12:51 PM MACHINE FANCY STITCHER 06/30/2024 2:51 PM MACHINE FANCY STITCHER us Brandon Galo MD LAB PATHOLOGY ORDERA CARMEL [place] [address], * (ABNORMAL) POC Chem 8 (06/30/2024 11:10 AM RUST) Only the most recent of2 resultswithin the [...] for CKD. Blood 06/30/2024 11:1 0 AM MACHINE FANCY STITCHER 06/30/2024 11:13 AM MACHINE FANCY STITCHER Narrative [facility] - 06/30/2024 11:13 AM MACHINE FANCY STITCHER Method description: The i-STAT is an analyzer [...] DE VICE Final Result Performing Organization Address [facility] Co de Phone Number [facility] Unless otherwise noted, all lab tests performed by: Division of Pathology and Laboratory Medicine [address] [place] [phone] * EKG, 12-Lead (Scheduled) (06/29/2024) Only the most recent of3 resultswithin the time period is included. Mary Kay Santamaria APRN ECG ORDERABLES Final R esult Performing Organization Address City/[facility] Co de Phone Number [facility] * PETCT F18 FDG (Fluorodeoxyglucose) with contrast (06/20/2024 12:42 PM MACHINE FANCY STITCHER) Anatomical Region Laterality Modality Whole Body Positron Emissio n Tomography (PET) 06/20/2024 3:10 PM MACHINE FANCY STITCHER Impressions 06/20/2024 4:38 PM MACHINE FANCY STITCHER Biopsy-proven malignancy in the region of the [...] and potentially actionable. Narrative 06/20/2024 4:38 PM MACHINE FANCY STITCHER FULL RESULT: Examination: 18F-FDG-PET/CT with contrast, 06/20/2024 [...] * Transferrin with TIBC (06/01/2024 11:10 AM MACHINE FANCY STITCHER) Transferrin 211 200 - 360 mg/dL 06/01/2024 12:15 PM MACHINE FANCY STITCHER [facility] Total Iron Binding Capacity 295 250 - 450 mcg/dL 06/01/2024 12:15 PM MACHINE FANCY STITCHER [facility] Blood Peripheral blood specimen / Unknown Venipuncture / Unknown 06/01/2024 11:10 AM MACHINE FANCY STITCHER 06/01/2024 11:23 AM MACHINE FANCY STITCHER us Marianela Hutchinson MD LAB BLOOD ORDERABLES Final Re sult [facility] Unless otherwise noted, all lab tests performed by: Division of Pathology and Laboratory Medicine [address] [place] [address] [place] [phone] * (ABNORMAL) Iron Level (06/01/2024 11:10 AM MACHINE FANCY STITCHER) Iron Level 38(L) 59 - 158 mcg/dL 06/01/2024 12:15 PM MACHINE FANCY STITCHER [facility] Is patient fasting? No 06/01/2024 12:15 PM MACHINE FANCY STITCHER [facility] Blood Peripheral blood specimen / Unknown Venipuncture / Unknown 06/01/2024 11:10 AM MACHINE FANCY STITCHER 06/01/2024 11:23 AM MACHINE FANCY STITCHER Marianela Hutchinson MD LAB BLOOD ORDERABLES Final Re sult Performing Organization Address [facility] de Phone Number [facility] Unless otherwise noted, all lab tests performed by: Division of Pathology and Laboratory Medicine [address] [place] [address] Unless otherwise noted, all lab tests performed by: Division of Pathology and Laboratory Medicine [address] [place] [address] * Ferritin Level (06/01/2024 11:10 AM MACHINE FANCY STITCHER) Ferritin Level 59 30 - 400 ng/mL 06/01/2024 12:15 PM MACHINE FANCY STITCHER [facility] Blood Peripheral blood specimen / Unknown Venipuncture / Unknown 06/01/2024 11:10 AM MACHINE FANCY STITCHER 06/01/2024 11:23 AM MACHINE FANCY STITCHER Narrative [facility] - 06/01/2024 12:15 PM MACHINE FANCY STITCHER Reference range established for age 20 - 60 years Marianela Hutchinson MD LAB BLOOD ORDERABLES Final Re sult Performing Organization Address City/[facility] Co de Phone Number [facility] Unless otherwise noted, all lab tests performed by: Division of Pathology and Laboratory Medicine [address] [place] [phone] * Tip Verification Central Vascular Access Device (04/15/2024 3:50 PM MACHINE FANCY STITCHER) Narrative John Fong MD - 04/15/2024 3:50 PM MACHINE FANCY STITCHER John Fong MD 04/15/2024 3:50 PM Central Vascular Access Device Tip Verification Performed by: John Fong MD Authorized by: John Fong MD CVAD Properties Date device placed: 04/15/2024 Device placement location: [facility] Catheter Type: Implanted venous port Catheter lumen: Single lumen Vein location: Internal jugular vein Laterality: Right Tip in good position and cleared for infusion us John Fong MD IV THERAPY ORDERABLES Final Re sult * XR Chest 1 View Portable (04/15/2024 2:45 PM MACHINE FANCY STITCHER) Anatomical Region Laterality Modality Chest Digital Radiogra phy 04/15/2024 2:50 PM MACHINE FANCY STITCHER Impressions 04/15/2024 2:53 PM MACHINE FANCY STITCHER 1. Right infusion port catheter terminates over [...] and potentially actionable. Narrative 04/15/2024 2:53 PM MACHINE FANCY STITCHER FULL RESULT: Examination: XR CHEST 1 VW [...] IMAGING ORDERAB LES Final Result * Cytology Non-Explosive Ordnance Manager Interpretation (04/15/2024 12:33 PM MACHINE FANCY STITCHER) Gross Description 4 Pap Stain Slides 750 ml. clear yellow fluid Specimen concentrated by cytocentrifugation technique 4 4:07 PM MACHINE FANCY STITCHER [facility] Major Classification [facility]/benign 4 4:07 PM MACHINE FANCY STITCHER [facility] Diagnosis Peritoneal washing: No metastatic carcinoma identified Reactive mesothelial cells and histiocytes 4 4:07 PM MACHINE FANCY STITCHER [facility] Retained/Biomark er Testing SR:4S 4 4:07 PM MACHINE FANCY STITCHER [facility] Informational Points Some tests reported here may have been developed and performance characteristics determined by [facility] Pathology and Laboratory Medicine. These tests have not been specifically cleared or approved by the U.S. Food and Drug Administration. 4 4:07 PM MACHINE FANCY STITCHER [facility] Washing (Peritoneal Washing) 04/15/2024 12:33 PM MACHINE FANCY STITCHER 04/15/2024 1:10 PM MACHINE FANCY STITCHER John Fong MD LAB CYTOLOGY ORDERABLES Final Result Performing Organization Address City/[facility]/ZIP Co de Phone Number [address] [address], [place] * Pathology Surgical Interpretation (04/15/2024 12:13 PM MACHINE FANCY STITCHER) Only the most recent of2 resultswithin the time period is included. Submitted Clinical History Adenocarcinoma of stomach [C16.9] 04/20/2024 8:13 PM MACHINE FANCY STITCHER [facility] Diagnosis A. Falciform ligament, resection: Fibroadipose tissue, no tumor present 04/20/2024 8:13 PM MACHINE FANCY STITCHER [facility] Gross Description A: Falciform ligament, falciorm ligament biopsy....or 16: Consists of a fragment of castillo-yellow, lobulated fat (0.8 x 0.6 x 0.5 cm) entirely submitted in cassette A1. EF 04/20/2024 8:13 PM MACHINE FANCY STITCHER [facility] Disclaimer "Some tests reported here may have been developed and performance characteristics determined by [facility] Pathology and Laboratory Medicine. These tests have not been specifically cleared or approved by the U.S. Food and Drug Administration. If applicable, controls were reviewed and showed appropriate reactivity." 04/20/2024 8:13 PM MACHINE FANCY STITCHER [facility] Tissue (Falciform Ligament) 04/15/2024 12:13 PM MACHINE FANCY STITCHER 04/15/2024 1:18 PM MACHINE FANCY STITCHER us John Fong MD LAB PATHOLOGY ORDERABLES Final Result [address] [address], [place] * [place] Central Venous Place Exchange (04/15/2024 11:40 AM MACHINE FANCY STITCHER) Narrative Systemgenerated, Documentation - 04/15/2024 11:40 AM MACHINE FANCY STITCHER This procedure requires no interpretation from the radiologist. us John Fong MD IMG FLUOROSCOPY ORDERABLES Fin al Result * CT Abdomen Pelvis with IV Contrast (04/12/2024 11:18 AM MACHINE FANCY STITCHER) Anatomical Region Laterality Modality Abdomen, Pelvis Computed Tomogra phy 04/12/2024 11:5 2 AM MACHINE FANCY STITCHER Impressions 04/12/2024 12:11 PM MACHINE FANCY STITCHER Wall thickening and slight mucosal irregularity of [...] and potentially actionable. Narrative 04/12/2024 12:11 PM MACHINE FANCY STITCHER FULL RESULT: Examination: CT ABDOMEN PELVIS W [...] Result * Fractionated Bilirubin (04/12/2024 9:04 AM RUST) Pathologist [facility] Bilirubin Direct 04/12/20 9:47 AM [facility] [...] Unknown Venipuncture / Unknown 04/12/2024 9:04 AM MACHINE FANCY STITCHER 04/12/2024 9:08 AM RUST Nghia Zhu MD LAB BLOOD ORDERABLES Final Resu lt [facility] Unless otherwise noted, all lab tests performed by: Division of Pathology and Laboratory Medicine [address] [place] [phone] * (ABNORMAL) Lipase (04/12/2024 9:04 AM MACHINE FANCY STITCHER) Lipase Level 311(H) 13 - 60 U/L 04/12/2024 10:09 AM MACHINE FANCY STITCHER [facility] Blood Peripheral blood specimen / Unknown Venipuncture / Unknown 04/12/2024 9:04 AM MACHINE FANCY STITCHER 04/12/2024 9:08 AM MACHINE FANCY STITCHER Narrative [facility] - 04/12/2024 10:09 AM MACHINE FANCY STITCHER Reference range established based on adult population us Nghia Zhu MD LAB BLOOD ORDERABLES Final Resu lt [facility] Unless otherwise noted, all lab tests performed by: Division of Pathology and Laboratory Medicine [address] [place] [id number] * (ABNORMAL) Amylase (04/12/2024 9:04 AM MACHINE FANCY STITCHER) Amylase Level 171(H) 28 - 100 U/L 04/12/2024 9:47 AM MACHINE FANCY STITCHER [facility] Blood Peripheral blood specimen / Unknown Venipuncture / Unknown 04/12/2024 9:04 AM MACHINE FANCY STITCHER 04/12/2024 9:08 AM MACHINE FANCY STITCHER us Nghia Zhu MD LAB BLOOD ORDERABLES Final Resu lt [facility] Unless otherwise noted, all lab tests performed by: Division of Pathology and Laboratory Medicine [address] [place] [phone] * TSH (04/09/2024 11:09 AM MACHINE FANCY STITCHER) Only the most recent of2 resultswithin the time period is included. Thyroid Stimulating Hormone 1.53 0.27 - 4.20 mcunit/mL 04/09/2024 12:23 PM MACHINE FANCY STITCHER [facility] Blood Peripheral blood specimen / Unknown Venipuncture / Unknown 04/09/2024 11:09 AM MACHINE FANCY STITCHER 04/09/2024 11:19 AM MACHINE FANCY STITCHER Ceci Nicholson MD LAB BLOOD ORDERABLES Final Resu lt Performing Organization Address [facility] de Phone Number [facility] Unless otherwise noted, all lab tests performed by: Division of Pathology and Laboratory Medicine [address] [place] [phone] * (ABNORMAL) Hemoglobin A1c (04/09/2024 11:09 AM MACHINE FANCY STITCHER) Only the most recent of3 resultswithin the time period is included. Hemoglobin A1c 7.0(H) 4.3 - 5.6 % 04/09/2024 12:14 PM MACHINE FANCY STITCHER [facility] Blood Peripheral blood specimen / Unknown Venipuncture / Unknown 04/09/2024 11:09 AM MACHINE FANCY STITCHER 04/09/2024 11:19 AM MACHINE FANCY STITCHER Narrative [facility] - 04/09/2024 12:14 PM MACHINE FANCY STITCHER HbA1c values >=6.5% are diagnostic of diabetes mellitus. Diagnosis should be confirmed by repeat testing. Therapeutic Action suggested: >8.0% HbA1c; Goal of therapy: <7.0% HbA1c us Ceci Nicholson MD LAB BLOOD ORDERABLES Final Resu lt Performing Organization Address [facility] de Phone Number [facility] Unless otherwise noted, all lab tests performed by: Division of Pathology and Laboratory Medicine [address] [place] [phone] * Pathology Outside Interpretation (04/02/2024) Materials Received Accession#, Stained, Block, Unstained Collected Received A. [id number], 20 SS, 0 BLOCKS, 0 USS 04/02/2024 04/22/2024 04/22/2024 5:36 PM MACHINE FANCY STITCHER [facility] Diagnosis Outside ([id number], 20 SS, 0 BLOCKS, 0 USS, collected [...] ADENOCARCINOMA WITH SIGNET CELL FEATURES. See comment. FY/FMK 04/22/2024 5:36 PM [facility] [employer] Comment Part A. There is no evidence of malignancy on H&E and immunohistochemical stain for Cytokeratin AE1/AE3. Of note, the biopsy may not be sales representative girls' apparel of the entire lesion. Please correlate with [...] immunohistochemistry: Negative (Score: 0) 04/22/2024 5:36 PM [facility] [employer] Biomarker Block(s) Block for biomarker testing: C1 Normal block: N/A 04/22/2024 5:36 PM [facility] [employer] Disclaimer "Some tests reported here may have been developed and performance characteristics determined by [facility] Pathology and Laboratory Medicine. These tests have not been specifically cleared or approved by the U.S. Food and Drug Administration. If applicable, controls were reviewed and showed appropriate reactivity." 04/22/2024 5:36 PM [facility] Tissue 04/02/2024 04/22/2024 6:4 0 AM MACHINE FANCY STITCHER us Sybil Edmonds MD LAB PATHOLOGY ORDERABLES Final R esult [facility] [address] [place] [address], [place] * OSI CT Abdomen and Pelvis (04/01/2024 8:21 AM MACHINE FANCY STITCHER) Only the most recent of2 resultswithin the time period is included. Narrative Systemgenerated, Documentation - 04/27/2024 8:22 AM MACHINE FANCY STITCHER Study acquired at another institution. For comparison only. No [facility] originated interpretation requested or available. [facility] Regan Zhu DO [facility] OUTSIDE IMAGE ORDERAB LES Final Result * OSI CT CHEST ABDOMEN PELVIS (03/23/2024 7:37 PM MACHINE FANCY STITCHER) Narrative Systemgenerated, Documentation - 04/09/2024 7:37 PM MACHINE FANCY STITCHER Study acquired at another institution. For comparison only. No [facility] originated interpretation requested or available. Margoth Souza MD IM OUTSIDE IMAGE ORDERABLES Fin al Result * OSI Chest (03/23/2024 7:37 PM MACHINE FANCY STITCHER) Only the most recent of4 resultswithin the time period is included. Narrative Systemgenerated, Documentation - 04/09/2024 7:37 PM MACHINE FANCY STITCHER Study acquired at another institution. For comparison only. No [facility] originated interpretation requested or available. Margoth Souza MD [facility] OUTSIDE IMAGE ORDERABLES Fin al Result * OSI CT Chest (03/22/2024 8:21 AM MACHINE FANCY STITCHER) Narrative Systemgenerated, Documentation - 04/27/2024 8:21 AM MACHINE FANCY STITCHER Study acquired at another institution. For comparison only. No [facility] originated interpretation requested or available. [facility] Regan Zhu DO [facility] OUTSIDE IMAGE ORDERAB LES Final Result * (ABNORMAL) Basic Metabolic Panel- Total Calcium (01/03/2024 2:59 PM CDT) Only the most recent of7 resultswithin the time period is included. eGFR 71 >=60 mL/min/1. 73 sq. m 01/03/2024 3:44 PM CDT [facility] [place] Comment: The eGFRcr is calculated with the [...] - 10.2 mg/dL 01/03/2024 3:44 PM CDT [facility] Sodium Level 139 136 - 145 mmol/L 01/03/2024 3:44 PM CDT [facility] Potassium Level 3.9 3.4 - 4.5 mmol/L 01/03/2024 3:44 PM CDT [facility] Chloride 103 98 - 107 mmol/L 01/03/2024 3:44 PM CDT [facility] CO2 28 22 - 29 mmol/L 01/03/2024 3:44 PM CDT [facility] Anion Gap 8 4 - 14 mmol/L 01/03/2024 3:44 PM CDT [facility] Creatinine 1.18(H) 0.67 - 1.17 mg/dL 01/03/2024 3:44 PM CDT [facility] BUN 15 6 - 23 mg/dL 01/03/2024 3:44 PM CDT [facility] Glucose Level 137(H) 70 - 99 mg/dL 01/03/2024 3:44 PM CDT [facility] Comment: Effective 12/14/15, the glucose reference intervals have been updated based on [place] Diabetes [employer] guidelines (Standards of Medical Care [...] BLOOD ORDERABLES Final Result Performing Organization Address [facility] Co de Phone Number [facility] Unless otherwise noted, all lab tests performed by: Division of Pathology and Laboratory Medicine [address] [place] [phone] * Zinc Transporter 8 Ab (01/03/2024 4:22 AM CDT) Pathologist [facility] Zinc T8 AB <15.0 <15.0 U/mL 01/15/2024 11:18 AM CDT [facility] TIFF Comment: ADDITIONAL INFORMATION This test has been modified from the cad designer drafter's instructions. Its performance characteristics were determined by [facility] in a manner consistent with CLIA requirements. This test has not been cleared or approved by the U.S. Food and Drug Administration. Test Performed by: [place] [address] Senior Data Architect: Mary Jane Topete Ph.D.; CLIA# [id number] Blood Peripheral blood specimen / Unknown Venipuncture / Unknown 01/03/2024 4:22 AM CDT 01/03/2024 4:55 AM CDT Alicia Mcmanus APRN LAB BLOOD ORDERABLES Final Result Performing Organization Address [facility] Co de Phone Number [facility] JASONANAIS * Islet Antigen 2 (IA-2) Antibody (01/03/2024 4:22 AM CDT) IA-2 Antibody 0.00 <=0.02 nmol/L 01/07/2024 12:20 AM CDT [facility] Comment: ADDITIONAL INFORMATION This test was developed and its performance characteristics determined by [facility] in a manner consistent with CLIA requirements. This test has not been cleared or approved by the U.S. Food and Drug Administration. Test Performed by: [facility] [place] [address] Senior Data Architect: Mary Jane Topete Ph.D.; CLIA# [id number] Blood Peripheral blood specimen / Unknown Venipuncture / Unknown 01/03/2024 4:22 AM CDT 01/03/2024 4:55 AM CDT Alicia Mcmanus APRN LAB BLOOD ORDERABLES Final Result [facility] * GREG Ab Assay (01/03/2024 4:22 AM CDT) [facility] 0.00 <=0.02 nmol/L 01/07/2024 12:01 AM CDT [facility] Comment: ADDITIONAL INFORMATION This test was developed and its performance characteristics determined by [facility] in a manner consistent with CLIA requirements. This test has not been cleared or approved by the U.S. Food and Drug Administration. Test Performed by: [facility] - [address] [address] Senior Data Architect: Mary Jane Topete Ph.D.; CLIA# [id number] Blood Peripheral blood specimen / Unknown Venipuncture / Unknown 01/03/2024 4:22 AM CDT 01/03/2024 4:55 AM CDT Alicia Mcmanus APRN LAB BLOOD ORDERABLES Final Result [facility] * Insulin Ab (01/03/2024 4:22 AM CDT) Pathologist [facility] Insulin Ab-[place] 0.00 0.00 - 0.02 nmol/L 01/06/2024 5:14 PM CDT [facility] Comment: ADDITIONAL INFORMATION This test was developed and its performance characteristics determined by [facility] in a manner consistent with CLIA requirements. This test has not been cleared or approved by the U.S. Food and Drug Administration. Test Performed by: [address] [address] Senior Data Architect: Mary Jane Topete Ph.D.; CLIA# [id number] Blood Peripheral blood specimen / Unknown Venipuncture / Unknown 01/03/2024 4:22 AM CDT 01/03/2024 4:55 AM CDT Alicia Mcmanus APRN LAB BLOOD ORDERABLES Final Result Performing Organization Address [facility] Co de Phone Number [facility] TIFF * C Peptide (01/03/2024 4:22 AM CDT) [facility] C-Peptide 2.12 1.10 - 4.40 ng/mL 01/03/2024 5:48 AM CDT [facility] Blood Peripheral blood specimen / Unknown Venipuncture / Unknown 01/03/2024 4:22 AM CDT 01/03/2024 4:55 AM CDT Alicia Mcmanus APRN LAB BLOOD ORDERABLES Final Result Performing Organization Address City/[facility]/ZIP Co de Phone Number [facility] Unless otherwise noted, all lab tests performed by: Division of Pathology and Laboratory Medicine [address] [place] [address] [place] [address] * (ABNORMAL) Hemogram (01/02/2024 7:20 PM CDT) [facility] White Blood Cell 13.8(H) 4.1 - 10.5 K/uL 01/02/2024 7:33 PM CDT [facility] Red Blood Cell 4.74 4.30 - 6.04 M/uL 01/02/2024 7:33 PM CDT [facility] Hemoglobin 12.2(L) 13.3 - 17.4 g/dL 01/02/2024 7:33 PM CDT [facility] Hematocrit 38.6(L) 39.5 - 51.8 % 01/02/2024 7:33 PM CDT [facility] Mean Cell Volume 81(L) 82 - 99 fL 01/02/2024 7:33 PM CDT [facility] Mean Cell Hemoglobin 25.7(L) 26.6 - 33.2 pg 01/02/2024 7:33 PM CDT [facility] Mean Cell Hemoglobin Concentration 31.6 31.1 - 35.2 g/dL 01/02/2024 7:33 PM CDT [facility] RDW-SD 39.1 37.5 - 49.7 fL 01/02/2024 7:33 PM CDT [facility] Red Cell Diameter Width 13.1 11.6 - 15.5 % 01/02/2024 7:33 PM CDT [facility] Platelet 291 160 - 397 K/uL 01/02/2024 7:33 PM CDT [facility] Mean Platelet Volume 9.7 9.1 - 12.6 fL 01/02/2024 7:33 PM CDT [facility] INRBC 0.0 0.0 - 0.1 /100 WBC 01/02/2024 7:33 PM CDT [facility] Comment: The INRBC (instrument NRBC) value reflects [...] ORDERABLES Final R esult Performing Organization Address City/[facility]/ZIP Co de Phone Number [facility] Unless otherwise noted, all lab tests performed by: Division of Pathology and Laboratory Medicine [address] [place] [phone] * (ABNORMAL) Beta Hydroxy Quant (01/02/2024 7:20 PM CDT) Only the most recent of2 resultswithin the time period is included. [facility] Beta-Hydroxybuty rate 0.85(H) 0.02 - 0.27 mmol/L 01/02/2024 8:01 PM CDT [facility] Is patient fasting? No 01/02/2024 8:01 PM CDT [facility] Comment:A fasting specimen i s recommended and results obtained from non-fasting specimens should be interpreted with caution using reference ranges based on fasting status and in conjunction with clinical context. Blood Peripheral blood specimen / Unknown Venipuncture / Unknown 01/02/2024 7:20 PM CDT 01/02/2024 7:24 PM CDT Narrative [facility] - 01/02/2024 8:01 PM CDT Reference range based on fasting. Alicia Mcmanus APRN LAB BLOOD ORDERABLES Final Result Performing Organization Address City/[facility] Co de Phone Number [facility] Unless otherwise noted, all lab tests performed by: Division of Pathology and Laboratory Medicine [address] [place] [phone] * (ABNORMAL) ABG+ (ABG, Na, K, Cl, Glu, Hgb, Hct, Lactate, Ion Ca) (01/02/2024 10:38 AM CDT) Only the most recent of2 resultswithin the time period is included. [facility] Sodium Arterial 140 136 - 146 mmol/L 01/02/2024 10:44 AM CDT [facility] Potassium Arterial 3.7 3.4 - 4.5 mmol/L 01/02/2024 10:44 AM CDT [facility] Chloride Arterial 103 98 - 106 mmol/L 01/02/2024 10:44 AM [facility] Glucose Arterial 270(H) 70 - 105 mg/dL 01/02/2024 10:44 AM [facility] Hgb Art 12.9(L) 13.5 - 17.5 g/dL 01/02/2024 10:44 AM [facility] Hematocrit Arterial 40(L) 42 - 52 % 01/02/2024 10:44 AM [facility] Lactate Arterial 1.0(H) 0.4 - 0.8 mmol/L 01/02/2024 10:44 AM [facility] Calcium Ionized Arterial 1.14(L) 1.15 - 1.29 mmol/L 01/02/2024 10:44 AM [facility] pH Arterial 7.35 7.35 - 7.45 01/02/2024 10:44 AM [facility] P CO2 Arterial 42.9 35.0 - 48.0 mmHg 01/02/2024 10:44 AM [facility] P O2 Arterial 164(H) 83 - 108 mmHg 01/02/2024 10:44 AM [facility] Bicarbonate Arterial 24 21 - 28 mmol/L 01/02/2024 10:44 AM [facility] WB Anion Gap 13 7 - 16 mmol/L 01/02/2024 10:44 AM [facility] Base Excess Arterial -2 -2 - 3 mmol/L 01/02/2024 10:44 AM [facility] Oxygen Saturation Arterial 99 95 - 99 % 01/02/2024 10:44 AM [facility] Oxygen FLOW Rate/ FiO2 01/02/2024 10:44 AM [facility] O2 Therapy 01/02/2024 10:44 AM [facility] Art Kirill Test Not Applicable (Arterial Line Draw) 01/02/2024 10:44 AM [facility] Blood Arterial blood specimen / Unknown Arterial Line / Unknown 01/02/2024 10:38 AM CDT 01/02/2024 10:41 AM [facility] - 01/02/2024 10:44 AM CDT The ABL90 [...] MD LAB BLOOD ORDERABLES Final Re sult [facility] Unless otherwise noted, all lab tests performed by: Division of Pathology and Laboratory Medicine [address] [place] [address] * Intraoperative Ultrasound - For Image Storage [...] and potentially actionable. us Margoth Souza MD IM CT ORDERABLES Final Result * BB Preop Exp Date (12/23/2023 8:51 AM CDT) PREOP EXP DATE 01/22/2024 12/23/2023 2:19 PM CDT [facility] Blood Peripheral blood specimen / Unknown Venipuncture / Unknown 12/23/2023 8:51 AM CDT 12/23/2023 9:00 AM CDT Margoth Souza MD BLOOD BANK TEST ORDERABLES Final Result [facility] [address] [facility] [address] [place] [address] * Preop Updated Expiration (12/23/2023 8:51 AM CDT) PREOP STATUS 01/02/2024 11:33 PM CDT [facility] PREOP EXP DATE 01/02/2024 01/02/2024 11:33 PM CDT [facility] Blood Peripheral blood specimen / Unknown Venipuncture / Unknown 12/23/2023 8:51 AM CDT 12/23/2023 9:00 AM CDT Margoth Souza MD BLOOD BANK TEST ORDERABLES Final Result [facility] [address] [place] [address] * (ABNORMAL) Urinalysis with Reflex Culture (12/23/2023 8:51 AM CDT) Only the most recent of2 resultswithin the time period is included. Urine Appearance Clear Clear 12/23/19 9:33 AM CDT [facility] Urine Color Straw Colorless, Straw, Yellow, Dark Yellow, Straw-Yellow 12/23/2023 9:33 AM CDT [facility] Urine Specific Mcallister 1.032 1.003 - 1.035 12/23/2023 9:33 AM CDT [facility] Urine pH 6.0 5.0 - 8.0 12/23/2023 9:33 AM CDT [facility] Urine Glucose >=1000(A) Negative mg/dL 12/23/2023 9:33 AM CDT [facility] Urine Ketones Negative Negative mg/dL 12/23/2023 9:33 AM CDT [facility] Urine Blood Negative Negative 12/23/2023 9:33 AM CDT [facility] Urine Protein 30(A) Negative mg/dL 12/23/2023 9:33 AM CDT [facility] Urine Bilirubin Negative Negative 9:33 AM CDT [facility] Urine Urobilinogen Negative Negative 12/23/2023 9:33 AM CDT [facility] Urine Nitrite Negative Negative 12/23/2023 9:33 AM CDT [facility] Urine Leukocyte Esterase Negative Negative 12/23/2023 9:33 AM CDT [facility] Urine Mucous Not Seen Not Seen, Trace /HPF 12/23/2023 9:33 AM CDT [facility] Urine Bacteria Not Seen Not Seen /HPF 12/23/2023 9:33 AM CDT [facility] Urine Squamous Epithelial Cells OCC Not Seen, OCC, Rare /HPF 12/23/2023 9:33 AM CDT [facility] Urine WBC <1 <=2 /HPF 12/23/2023 9:33 AM CDT [facility] Urine RBC 1 <=2 /HPF 12/23/2023 9:33 AM CDT [facility] Urine Voided urine specimen / Unknown Non-blood Collection / Unknown 12/23/2023 8:51 AM CDT 12/23/2023 9:10 AM CDT [facility] - 12/23/2023 9:33 AM CDT Some reporting parameters within the Urinalysis test have changed due to the implementation of new instrumentation in the [facility], allowing greater sensitivity of measurement. Urinalysis results reported by the [facility] using existing instrumentation, as well as Urinalysis testing performed manually or by back-up methodology at the main campus, will remain relatively unchanged. New reporting parameters and units will now be reported for all [place]. Margoth Souza MD URINE ORDERABLES Final Result [facility] Unless otherwise noted, all lab tests performed by: Division of Pathology and Laboratory Medicine [address] [place] [id number] * 30-Day Pre-Op Type and Screen (12/23/2023 8:51 AM CDT) Only the most recent of2 resultswithin the time period is included. ABORh O POS 12/23/2023 8:45 AM CDT [facility] ABSC Negative 12/23/2023 8:45 AM CDT [facility] BB Criteria Met Criteria met 12/23/2023 8:45 AM CDT [facility] Historical Record Check Complete 12/23/2023 8:45 AM CDT [facility] Blood Peripheral blood specimen / Unknown Venipuncture / Unknown 12/23/2023 8:51 AM CDT 12/23/2023 9:00 AM CDT Margoth Souza MD BLOOD BANK TEST ORDERABLES Final Result Performing Organization Address City/[facility] Co de Phone Number [facility] [address] [place] [address] [address] [place] [address] * TMP Interpretation Exception PreOp Expiration (12/23/2023 8:51 AM CDT) Only the most recent of2 resultswithin the time period is included. TMP Exception 12/24/2023 10:47 AM CDT [facility] TMP Signature . 12/24/2023 10:47 AM CDT [facility] Blood Peripheral blood specimen / Unknown Venipuncture / Unknown 12/23/2023 8:51 AM CDT 12/23/2023 9:00 AM CDT Margoth Souza MD BLOOD BANK TEST ORDERABLES Final Result [facility] [address] [place] [address] * ACTH (12/09/2023 9:45 AM CDT) Only the most recent of2 resultswithin the time period is included. [facility] ACTH 22 7 - 63 pg/mL 12/09/2023 12:19 PM CDT [facility] Blood Peripheral blood specimen / Unknown Venipuncture / Unknown 12/09/2023 9:45 AM CDT 12/09/2023 9:52 AM CDT Narrative [facility] - 12/09/2023 12:19 PM CDT Reference range established based on adult population (7 - 10am draws). No established reference values for p.m. draws. Results greater than 1826 pg/mL may not be reliable due to matrix effect with extended dilution as it exceeds the cad designer drafter's recommended limit. ACTH reference intervals are established for the morning hours from 7-10 am. Due to the circadian rhythm of ACTH levels in plasma, the sample collection time must be noted. Caution should be exercised when interpreting such values and done in conjunction with clinical context. Veronica Del Castillo APRN LAB BLOOD ORDERABLES Final Result [facility] Unless otherwise noted, all lab tests performed by: Division of Pathology and Laboratory Medicine [address] [place] [id number] * DHEA Sulfate (12/09/2023 9:45 AM CDT) [facility] [place] [address] 20 - 299 mcg/dL 12/10/2023 12:10 PM CDT [facility] Comment: Test Performed by: [facility] [address] [place] [address] Senior Data Architect: Mary Jane Topete Ph.D.; CLIA# [id number] Blood Peripheral blood specimen / Unknown Venipuncture / Unknown 12/09/2023 9:45 AM CDT 12/09/2023 9:56 AM CDT [facility]onica Del Cast[facility] [facility] LAB BLOOD ORDERABLES Final Result Performing Organization Address City/[facility]/ZIP Co de Phone Number DINA MATTHEW * Cortisol, Total (12/09/2023 9:45 AM CDT) Only the most recent of4 resultswithin the time period is included. Cortisol 11.39 4.82 - 19.50 mcg/dL 12/09/2023 11:00 AM CDT [facility] Blood Peripheral blood specimen / Unknown Venipuncture / Unknown 12/09/2023 9:45 AM CDT 12/09/2023 9:55 AM CDT Narrative [facility] - 12/09/2023 11:00 AM CDT [...] (4-8 pm): 2.47 - 11.9 mcg/dL Veronica KayEvonne [facility] LAB BLOOD ORDERABLES Final Result [facility] Unless otherwise noted, all lab tests performed by: Division of Pathology and Laboratory Medicine [address] [place] [address] [place] [id number] * IR CT GUIDED BIOPSY RENAL (10/03/2023 10:27 AM CDT) Anatomical Region Laterality Modality Abdomen/Pelvis, Organ (liver/spleen/kidney) Computed Tomography Narrative 10/04/2023 9:03 AM CDT Table formatting from the original result was not included. Date of Procedure: 5/16/24 Attending Physician: Kumar Comer MD Hospice Massage Therapist: None Pre Procedure Diagnosis: Renal mass Post [...] 11.9 - 14.5 second(s) 10/03/2023 9:57 AM T [facility] International Normalization Ratio 0.98 0.87 - 1.12 10/03/2023 9:57 AM T [facility] Blood Peripheral blood specimen / Unknown Venipuncture / Unknown 10/03/2023 9:27 AM CDT 10/03/2023 9:28 AM CDT us Abilio Ng PA-C LAB BLOOD ORDERABLES Final Result [facility] [address] [place] [address] * Type and Screen (10/03/2023 9:27 AM CDT) ABORh O POS 10/03/2023 9:17 AM CDT [facility] ABSC Negative 10/03/2023 9:17 AM CDT [facility] Clot Expiration 10/06/2023 23:59 10/03/2023 9:17 AM CDT [facility] Historical Record Check Complete 10/03/2023 9:17 AM CDT [facility] Blood Peripheral blood specimen / Unknown Venipuncture / Unknown 10/03/2023 9:27 AM CDT 10/03/2023 9:52 AM CDT us Abilio Ng PA-C BLOOD BANK TEST ORDERABLES Final Result [facility] [address] [place] [address] * X-ray Chest 2 Views (09/19/2023 9:24 [...] 0.43 <0.90 nmol/L 09/19/2023 2:59 PM CDT [facility] Metanephr Free-Maxwell <0.20 <0.50 nmol/L 09/19/2023 2:59 PM CDT [facility] Comment: ADDITIONAL INFORMATION This test was developed and its performance characteristics determined by [facility] in a manner consistent with CLIA requirements. This test has not been cleared or approved by the U.S. Food and Drug Administration. Test Performed by: [facility] [address] [id number] Senior Data Architect: Scot Skelton M.D. Ph.D.; CLIA# [id number] Blood Peripheral blood specimen / Unknown Venipuncture / Unknown 09/16/2023 4:24 PM CDT 09/16/2023 4:41 PM CDT Shazia Arriaza MD LAB BLOOD ORDERABLES Final Result Performing Organization Address City/[facility]/ZIP Co de Phone Number [facility] TIFF * Hepatitis C Virus Antibody (09/16/2023 4:24 PM CDT) [facility] HCVAb. Non Reactive Non Reactive 09/17/2023 9:11 AM CDT [facility] Blood Peripheral blood specimen / Unknown Venipuncture / Unknown 09/16/2023 4:24 PM CDT 09/16/2023 4:41 PM CDT Narrative [facility] - 09/17/2023 9:11 AM CDT Antibody detection in the immunocompromised and immunosuppressed population may be delayed or absent entirely. Therefore serial testing, correlation with other clinical findings, and supplemental testing (if available) should be taken into consideration when interpreting the results. us Shazia Arriaza MD LAB BLOOD ORDERABLES Final Result [facility] Unless otherwise noted, all lab tests performed by: Division of Pathology and Laboratory Medicine [address] [place] [id number] * Aldosterone Level (09/16/2023 4:24 PM CDT) [facility] Aldosterone-Bingham 8.1 <=21 ng/dL 09/20/2023 1:02 AM CDT DINA MATTHEW Comment: ADDITIONAL INFORMATION Reference range for patients 11 years and older is based on upright A.M. collection from subjects without sodium restrictions. This test was developed and its performance characteristics determined by [facility] in a manner consistent with CLIA requirements. This test has not been cleared or approved by the U.S. Food and Drug Administration. Test Performed by: [facility] [address] [place] [address] Senior Data Architect: Scot Skelton M.D. Ph.D.; CLIA# [id number] Blood Peripheral blood specimen / Unknown Venipuncture / Unknown 09/16/2023 4:24 PM CDT 09/16/2023 4:41 PM CDT Shazia Arriaza MD LAB BLOOD ORDERABLES Final Result [facility] MATTHEW * Renin Activity (09/16/2023 4:24 PM CDT) [facility] Renin Activity-Bingham 4.3 ng/mL/h 09/19 3:42 PM CDT DINA MATTHEW Comment: REFERENCE VALUE (Peripheral vein specimen) Na-deplete, upright: Mean: 5.9 Range: 2.9-10.8 Na-replete, upright: Mean: 1.0 Range: < or =0.6-3.0 ADDITIONAL INFORMATION Testing performed by Liquid Chromatography-Tandem Mass Spectrometry (LC-MS/MS). This test was developed and its performance characteristics determined by [facility] in a manner consistent with CLIA requirements. This test has not been cleared or approved by the U.S. Food and Drug Administration. Test Performed by: [facility] [address] [place] [address] Senior Data Architect: Scot Skelton M.D. Ph.D.; CLIA# [id number] Blood Peripheral blood specimen / Unknown Venipuncture / Unknown 09/16/2023 4:24 PM CDT 09/16/2023 4:41 PM CDT us Shazia Arriaza MD LAB BLOOD ORDERABLES Final Result [facility] * Urine Culture (09/16/2023 4:24 PM CDT) Pathologist [facility] Urine Culture Normal site mirna present. Generally of low significance. Correlate with clinical data and culture history. 09/18/2023 8:31 AM CDT [facility] Urine Voided urine specimen / Unknown Non-blood Collection / Unknown 09/16/2023 4:24 PM CDT 09/16/2023 4:41 PM CDT Result Awa Arriaza MD MICROBIOLOGY - GENERAL ORD ERABLES Final Result Performing Organization Address City/[facility]/ZIP Co de Phone Number [facility] Unless otherwise noted, all lab tests performed by: Division of Pathology and Laboratory Medicine [address] [place] [id number] * T4 (09/16/2023 4:24 PM CDT) Thyroxine 7.0 4.5 - 11.7 mcg/dL 09/16/2023 5:55 PM CDT [facility] Blood Peripheral blood specimen / Unknown Venipuncture / Unknown 09/16/2023 4:24 PM CDT 09/16/2023 4:41 PM CDT Result Awa Arriaza MD LAB BLOOD ORDERABLES Final Result [facility] Unless otherwise noted, all lab tests performed by: Division of Pathology and Laboratory Medicine [address] [place] [id number] * Confirm ABORh (09/16/2023 4:23 PM CDT) ABORh Confirm O POS 09/16/2023 4:15 PM CDT [facility] Blood Peripheral blood specimen / Unknown Venipuncture / Unknown 09/16/2023 4:23 PM CDT 09/16/2023 4:41 PM CDT us Shazia Arriaza MD BLOOD BANK TEST ORDERABLES Final Result [facility] [address] [place] [address] after 08/01/2023 Insurance MEDICARE PART A AND B MEDICARE PART A AND B Advance Directives * Full Code (Latest Code Status on File) Date Activated Date Inactivated Comments 04/12/2024 1:24 PM 04/12/2024 5:43 PM * Full Code Date Activated Date Inactivated Comments 01/02/2024 1:48 PM 01/03/2024 7:17 PM Care Teams Corporate Driver Relationship Specialty Start Date End Date Margoth Souza MD [address] [place] [phone] [email or web address] PCP - General Urology 07/30/23 04/14/24 Eagle Zhu DO [address] [place] [id number] [email or web address] PCP - External Primary Care Provider Family Practice 04/08/24 Marianela Hutchinson MD [address] [place] [phone] [email or web address] PCP - General Gastrointestinal Medical Oncology 05/04/24 Mary Jane Cassidy MD [address] [place] [phone] [email or web address] Consulting Physician Endocrinology 12/09/23 Barry He MD [address] [place] [id number] [email or web address] Consulting Physician Internal Medicine 12/23/23 Patience Hunt MD [address] [place] [phone] [email or web address] Consulting Physician Endocrinology 12/31/23 Marianela Hutchinson MD [address] [place] [phone] [email or web address] Consulting Physician Gastrointestinal Medical Oncology 04/13/24 Margoth Souza MD [address] [place] [phone] [email or web address] Consulting Physician Urology 04/15/24 Ceci Nicholson MD [address] [place] [phone] [email or web address] Consulting Physician Internal Medicine 04/09/24 Sigifredo Davenport MD [address] [place] [phone] [email or web address] Consulting Physician Internal Medicine 06/29/24
[2024-07-31] MEDS ORDERED: METOCLOPRAMIDE 10 MG/2mL INJ ONE (13:31)
[2024-07-31] MEDS ORDERED: NA CHLORIDE 0.9% 1,000 ML ONE (13:32)
[2024-07-31] MEDS ORDERED: FAMOTIDINE 20 MG/2 ML VIAL IV ONE (13:32)
[2024-07-31 13:51] LABS: Absolute Basophils 0.1 K/uL (0-0.5); Absolute Eosinophils 0.2 K/uL (0-0.5); Absolute Monocytes 0.5 K/uL (0.1-1.3); Absolute Neutrophil 4.9 K/uL (1.8-8.0); Basophils % 1.1 % (0-1.3); Eosinophils % 2.3 % (0-4.4); Hematocrit 37.2 % (39.6-49.0); Hemoglobin 12.8 g/dL (13.6-17.9); Lymphocytes % 25.7 % (15.3-44.8); MCH 26.4 pg (27.0-35.0); MCHC 34.3 g/dL (32.0-36.0); MPV 7.7 fL (7.6-11.3); Monocytes % 7.1 % (3.3-12.3); Neutrophils % 63.8 % (41.7-73.7); Nucleated Red Blood Cells % 0.1 % (0-0); Platelets 402 thou/uL (152-406); RBC Red Blood Cell Count 4.83 M/uL (4.33-5.43); Red Cell Distribution Width 15.6 % (12.1-15.2)
[2024-07-31 14:17] LABS: ALT/SGPT 19 U/L (16-61); AST/SGOT 15 U/L (15-37); Albumin 3.4 g/dL (3.4-5.0); Albumin/Globulin Ratio 0.7 (1.1-1.8); Alkaline Phosphatase 152 U/L (45-117); BUN Blood Urea Nitrogen 23 mg/dL (7-18); Bicarbonate 28 mEq/L (21-32); Bilirubin Direct < 0.2 mg/dL (0-0.2); Bilirubin Total 0.2 mg/dL (0.2-1.0); Globulin 5.2 g/dL (2.3-3.5); Glomerular Filtration Rate 64 ml/min (=/>90); Glucose Level 272 mg/dL (74-106); Lipase 331 U/L (13-75); Protein, Total 8.6 g/dL (6.4-8.2); Sodium Level 131 mEq/L (136-145); Troponin High Sensitivity 24.8 pg/mL (<58.9)
[2024-07-31 14:34] LABS: PT Prothrombin Time 10.8 SECONDS (10-13.0); PTT, Activated Partial Thromb 27.2 SECONDS (27.2-37.4); Protime INR 0.94
--- NOTE | 2024-07-31 14:50 | RAD REPORT ---
EXAMINATION: ONE VIEW CHEST XR CLINICAL INDICATION: Male, 59 years old.,vomiting TECHNIQUE: Frontal chest projection is submitted. Examination is limited by patient positioning and t echnique. COMPARISON: 07/24/2024 FINDINGS: Right Port-A-Cath unchanged in position. The lungs are well inflated and clear. No pneumothorax or s izable effusion. The heart is normal in size. Mediastinal contours are unremarkable. IMPRESSION: No acute intrathoracic abnormalities.
--- NOTE | 2024-07-31 16:20 | RAD REPORT ---
EXAMINATION: CT Abdomen Pelvis W Contrast CLINICAL INDICATION: Male, 59 years old. vomiting, abdominal pain TECHNIQUE: CT abdomen and pelvis was performed, after the administration of IV contrast, as per [facility] protocol. Axial, sagittal and coronal reconstructions were obtained. One or more of the following dose reduction techniques were used: Automated exposure control, adjustment of the mA and k V according to patient size, and iterative reconstruction. Unless otherwise specified, incidental findings do not require dedicated imaging follow-up. COMPARISON: 07/24/2024 FINDINGS: LOWER CHEST: The visualized lung bases are clear. LIVER: Normal in size and contour. No focal lesion. BILIARY SYSTEM: Tiny calculi now present at the gallbladder body. SPLEEN: Normal size. No focal lesion. PANCREAS: No mass, ductal dilation, or derrick-pancreatic fluid. ADRENALS: Normal; no mass. KIDNEYS: Stable mild caliber prominence of the right renal pelvis. Stable postsurgical changes of the left superior renal pole. Stable right perinephric fat stranding. No hydronephrosis. URINARY BLADDER: Unremarkable. GASTROINTESTINAL TRACT: Circumferential wall thickening of the distal esophagus. Mild wall prominence of the gastric antrum, may relate to peristalsis. The findings are stable. No evidence of free air, significant intra-abdominal free fluid, bowel obstruction or abscess. APPENDIX: Appendix not visualized, but no inflammatory changes in region of appendix. LYMPH NODES: No lymphadenopathy. MUSCULOSKELETAL: Stable superior endplate compression deformities of the lower thoracic and upper lum bar spine. No other acute or suspicious osseous abnormality. ADDITIONAL FINDINGS: None. IMPRESSION: Stable postsurgical changes of the left upper renal pole. Stable mild hydronephrosis and hydroureter on the right. No evidence of obstructing calculi. Mild xiang ateral perinephric fat stranding, nonspecific, stable. No other acute findings. Other stable incidental findings as above including small gallstones.
--- NOTE | 2024-07-31 16:52 | EDPHYS ---
Physician Documentation [facility] Name: Zeke Mackay Sr Age: 59 yrs Sex: Male : 1965 Arrival Date: 07/31/2024 Time: 12:58 Bed 4 Private MD: ED Physician Emanuel England HPI: 07/31 13:25 This 59 yrs old Male presents to ER via Ambulatory with complaints of Vomiting. cp 13:25 The patient presents to the emergency department with vomiting, that is continuous, cp abdominal pain. 13:25 Onset: The symptoms/episode began/occurred this morning, about 0800. cp 13:25 Possible causes: flare up of bowel problem, history of gastric cancer. Associated signs cp and symptoms: Pertinent negatives: constipation, diarrhea, GI bleeding. 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 - Infectious Disease History:: Denies. - Social history:: Smoking status: Patient denies any tobacco usage or history of. ROS: 13:30 Constitutional: Positive for poor PO intake, Negative for body aches, chills, fever, cp 13:30 Abdomen/GI: Positive for abdominal pain, nausea and vomiting, Negative for diarrhea, cp constipation, hematemesis, 13:30 Eyes: Negative for injury, pain, redness, and discharge, cp 13:30 ENT: Negative for drainage from ear(s), ear pain, sore throat, difficulty swallowing, difficulty handling secretions, 13:30 Cardiovascular: Negative for chest pain, edema, palpitations, 13:30 Respiratory: Negative for cough, shortness of breath, wheezing, 13:30 Back: Negative for pain at rest, pain with movement, 13:30 Neuro: Negative for altered mental status, dizziness, headache, numbness, syncope, weakness, 13:30 All other systems are negative, Exam: 13:33 Constitutional: The patient appears in no acute distress, alert, awake, cp non-diaphoretic, non-toxic, well developed, well nourished, uncomfortable, 13:33 Head/Face: Normocephalic, atraumatic. cp 13:33 Eyes: Periorbital structures: appear normal, Conjunctiva: normal, no exudate, no injection, Sclera: no appreciated abnormality, Lids and lashes: appear normal, bilaterally, 13:33 ENT: External ear(s): are unremarkable, Nose: is normal, Mouth: Lips: moist, Oral mucosa: pink and intact, moist, Posterior pharynx: Airway: no evidence of obstruction, patent, 13:33 Neck: ROM/movement: is normal, is supple, without pain, no range of motions limitations, 13:33 Chest/axilla: Inspection: normal, 13:33 Cardiovascular: Rate: normal, Rhythm: regular, Edema: is not appreciated, JVD: is not appreciated, 13:33 Respiratory: the patient does not display signs of respiratory distress, Respirations: normal, no use of accessory muscles, no retractions, labored breathing, is not present, Breath sounds: are clear throughout, no decreased breath sounds, no stridor, no wheezing, 13:33 Abdomen/GI: Inspection: abdomen appears normal, Bowel sounds: active, all quadrants, Palpation: soft, in all quadrants, moderate abdominal tenderness, in the epigastric area, rebound tenderness, is not appreciated, involuntary guarding, is not appreciated, 13:33 Back: pain, is absent, ROM is normal, 13:33 Neuro: Orientation: to person, place \T\ time. Mentation: is normal, Motor: moves all fours, no focal deficits, Sensation: no obvious gross deficits, 14:48 ECG was reviewed by the Attending Physician. cp Vital Signs: 13:16 BP 223 / 114; Pulse 91; Resp 18; Temp 97.8(TE); Pulse Ox 100% on R/A; Weight 83.91 kg; hb Height 6 ft. 2 in. ; Pain 1/10; 15:58 BP 178 / 81; Pulse 74; Resp 16; Pulse Ox 95% ; bp 18:06 BP 167 / 75; Pulse 78; Resp 16; Pulse Ox 96% ; bp 13:16 Body Mass Index 23.75 (83.91 kg, 187.96 cm) hb 13:16 Pain Scale: Adult hb MDM: 13:13 Medical Screening Exam initiated cp 14:00 Differential diagnosis: gastritis, cholecystitis, pancreatitis, diverticulitis, viral cp gastroenteritis, gastroenteritis. 16:30 Data reviewed: vital signs, nurses notes, lab test result(s), EKG, radiologic studies, cp CT scan, plain films. 16:30 I considered the following discharge prescriptions or medication management in the emergency department Medications were administered in the Emergency Department. See MAR. Care significantly affected by the following chronic conditions: Diabetes, Hypertension, Cancer. Counseling: I had a detailed discussion with the patient and/or guardian regarding the historical points, exam findings, and any diagnostic results supporting the discharge/admit diagnosis, lab results, radiology results. 16:30 Consideration of Admission/Observation. 16:30 Independent interpretation of the following test(s) in the Emergency Department EKG: cp See my EKG interpretation above. 16:35 Management of patient was discussed with the following: Hospitalist: You Carson NP cp will admit to hospitalist services after discussion. 17:52 ED course: patient evaluated by hospitalist, You Carson NP and admission offered. Patient requesting to be discharged to home to continue to monitor symptoms. 07/31 13:22 Order name: Basic Metabolic Panel; Complete Time: 14:40 07/31 14:40 Interpretation: Normal except: NA 131; CL 97; GLUC 272; BUN 23; GFR 64. 07/31 13:22 Order name: CBC with Diff; Complete Time: 14:40 07/31 14:41 Interpretation: Normal except: HGB 12.8; HCT 37.2; MCV 77.0; MCH 26.4; RDW 15.6. 07/31 13:22 Order name: LFT's; Complete Time: 14:40 07/31 14:41 Interpretation: Normal except: ALK 152; IBILI, CALC 0.0; TP 8.6; GLOB 5.2; A/G 0.7. 07/31 13:22 Order name: Magnesium; Complete Time: 14:40 07/31 13:22 Order name: PT-INR; Complete Time: 14:40 07/31 16:28 Interpretation: Reviewed. 07/31 13:22 Order name: Troponin HS; Complete Time: 14:40 07/31 13:22 Order name: Ptt, Activated; Complete Time: 14:40 07/31 13:22 Order name: Lipase; Complete Time: 14:40 cp 07/31 14:41 Interpretation: Abnormal: LIP 331. cp 07/31 13:22 Order name: XRAY Chest (1 view); Complete Time: 15:34 cp 07/31 15:34 Interpretation: Report review. 07/31 14:42 Order name: CT Abd/Pelvis - IV Contrast Only; Complete Time: 16:27 cp 07/31 16:28 Interpretation: Report reviewed. 07/31 13:22 Order name: Cardiac monitoring; Complete Time: 13:29 cp 07/31 13:22 Order name: EKG - Nurse/Tech; Complete Time: 14:47 cp 07/31 13:22 Order name: IV Saline Lock; Complete Time: 13:29 cp 07/31 13:22 Order name: Labs collected and sent; Complete Time: 13:29 cp 07/31 13:22 Order name: O2 Per Protocol; Complete Time: 13:29 cp 07/31 13:22 Order name: O2 Sat Monitoring; Complete Time: 13:29 07/31 13:59 Order name: Misc. Order: recollect - blue; Complete Time: 14:09 ty 07/31 15:34 Order name: Vital Signs: repeat blood pressure; Complete Time: 16:03 cp EC:48 Rate is 85 beats/min. Rhythm is regular. IL interval is normal. QRS interval is normal. cp QT interval is normal. T waves are Inverted in leads I, aVL. Interpreted by me. Reviewed by me. Administered Medications: 13:36 Drug: NS 0.9% IV 1000 ml IV at 1000 ml once; to be given as a bolus over 60 minutes bp Route: IV; Rate: 1000 ml; Site: right forearm; 18:09 Follow up: IV Status: Completed infusion bp 13:38 Drug: Famotidine IVP 20 mg IVP once; dilute with 10 mL 0.9% NaCl; give over 2 minutes bp Route: IVP; Site: right forearm; 16:03 Follow up: Response: Nausea is decreased bp 13:38 Drug: metoCLOPramide IVP 10 mg IVP once; over 1 to 2 minutes Route: IVP; Site: right bp forearm; 16:03 Follow up: Response: Nausea is decreased bp Disposition Summary: 07/31/24 17:55 Discharge Ordered Notes: Location: Home(07/31/24 17:55) cp Problem: new(07/31/24 17:55) cp Symptoms: have improved(07/31/24 17:55) cp Condition: Stable(07/31/24 17:55) cp Diagnosis - Acute pancreatitis without necrosis or infection, unspecified(07/31/24 17:55) cp - Nausea with vomiting, unspecified(07/31/24 17:55) cp - Diabetes mellitus due to underlying condition with hyperglycemia(07/31/24 17:55) cp - Epigastric pain(07/31/24 17:55) cp Followup: cp - With: Private Physician - When: 2 - 3 days - Reason: Recheck today's complaints Discharge Instructions: - Discharge Summary Sheet cp - Abdominal Pain, Adult cp - Hyperglycemia cp - Nausea and Vomiting, Adult cp - Acute Pancreatitis cp - Blood Glucose Monitoring, Adult cp - Diabetes Mellitus and Nutrition, Adult cp Forms: - Medication Reconciliation Form cp - Antibiotic Education cp - Prescription Opioid Use cp - Patient Portal Instructions cp - Leadership Thank You Letter cp Signatures: Dispatcher [employer] EDMS Rashi Miranda PA PA cp Mary Kay Munson, RN RN hb John Parrish RN RN bp Kris Alvarez ty Corrections: (The following items were deleted from the chart) 13:23 13:23 BASIC METABOLIC PANEL+C.LAB.BRZ ordered. EDMS EDMS 13:23 13:23 CBC+H.LAB.BRZ ordered. EDMS EDMS 13:23 13:23 HEPATIC FUNCTION+C.LAB.BRZ ordered. EDMS EDMS 13:23 13:23 MAGNESIUM+C.LAB.BRZ ordered. EDMS EDMS 13:23 13:23 PROTIME (+INR)+COAG.LAB.BRZ ordered. EDMS EDMS 13:23 13:23 Troponin High Sensitivity+C.LAB.BRZ ordered. EDMS EDMS 13:23 13:23 PTT, ACTIVATED+COAG.LAB.BRZ ordered. EDMS EDMS 13:23 13:23 LIPASE+C.LAB.BRZ ordered. EDMS EDMS 13:23 13:23 Chest Single View+RAD.RAD.BRZ ordered. EDMS EDMS 17:53 16:51 Inpatient Admission cp cp 17:53 16:51 Eliceo England cp cp 17:53 16:51 Telemetry/MedSurg (Inpatient) cp cp 17:53 16:51 Stable cp cp 17:53 16:51 new cp cp 17:53 16:51 have improved cp cp 17:53 16:51 Standard cp cp 17:53 16:51 cp cp 17:53 16:51 Acute pancreatitis without necrosis or infection, unspecified cp cp 17:53 16:51 Nausea with vomiting, unspecified cp cp 17:53 16:51 Diabetes mellitus due to underlying condition with hyperglycemia cp cp 17:53 16:51 Epigastric pain cp cp
--- NOTE | 2024-07-31 16:52 | ER ---
Nurse's Notes [facility] Name: Zeke Mackay Sr Age: 59 yrs Sex: Male : 1965 Arrival Date: 07/31/2024 Time: 12:58 Bed 4 Private MD: Diagnosis: Acute pancreatitis without necrosis or infection, unspecified;Nausea with vomiting, unspecified;Diabetes mellitus due to underlying condition with hyperglycemia;Epigastric pain Presentation: 07/31 13:16 Chief complaint: N/V since 0800 today, actively vomiting in triage. Currently being hb treated for cancer at [facility]. Coronavirus screen: At this time, the client does not indicate any symptoms associated with coronavirus-19. Ebola Screen: No symptoms or risks identified at this time. Initial Sepsis Screen: Does the patient meet any 2 criteria? No. Patient's initial sepsis screen is negative. Does the patient have a suspected source of infection? No. Patient's initial sepsis screen is negative. Risk Assessment: Do you want to hurt yourself or someone else? Patient reports no desire to harm self or others. Onset of symptoms was July 31, 2024. 13:16 Method Of Arrival: Ambulatory hb 13:16 Acuity: RICKEY 3 hb Triage Assessment: 13:20 General: Appears distressed, uncomfortable, Behavior is cooperative, appropriate for bp age, anxious. Pain: Denies pain. EENT: No deficits noted. Neuro: No deficits noted. Cardiovascular: No deficits noted. Respiratory: No deficits noted. GI: Reports nausea, vomiting. : No signs and/or symptoms were reported regarding the genitourinary system. Derm: No deficits noted. Musculoskeletal: No deficits noted. 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 - Infectious Disease History:: Denies. - Social history:: Smoking status: Patient denies any tobacco usage or history of. Screenin:00 [facility] ED Fall Risk Assessment (Adult) History of falling in the last 3 months, bp including since admission No falls in past 3 months (0 pts) Confusion or Disorientation No (0 pts) Intoxicated or Sedated No (0 pts) Impaired Gait No (0 pts) Mobility Assist Device Used No (0 pt) Altered Elimination No (0 pt) Score/Fall Risk Level 0 - 2 = Low Risk Oriented to surroundings. Abuse screen: Denies threats or abuse. Denies injuries from another. Nutritional screening: No deficits noted. Tuberculosis screening: No symptoms or risk factors identified. Assessment: 13:20 General: Appears distressed, unkempt, Behavior is cooperative, appropriate for age, bp anxious. GI: Abdomen is non-distended. 15:00 Reassessment: Patient appears in no apparent distress at this time. Patient is alert, bp oriented x 3, equal unlabored respirations, skin warm/dry/pink. Vital Signs: 13:16 BP 223 / 114; Pulse 91; Resp 18; Temp 97.8(TE); Pulse Ox 100% on R/A; Weight 83.91 kg; hb Height 6 ft. 2 in. ; Pain 1/10; 15:58 BP 178 / 81; Pulse 74; Resp 16; Pulse Ox 95% ; bp 18:06 BP 167 / 75; Pulse 78; Resp 16; Pulse Ox 96% ; bp 13:16 Body Mass Index 23.75 (83.91 kg, 187.96 cm) hb 13:16 Pain Scale: Adult hb ED Course: 13:01 Patient arrived in ED. al6 13:10 John Parrish, RN is Primary Nurse. bp 13:13 Rashi Miranda PA is PHCP. cp 13:13 Emanuel England MD is Attending Physician. cp 13:18 Triage completed. hb 13:18 Arm band placed on. hb 13:37 Initial lab(s) drawn, by la, sent to lab. Inserted saline lock: 22 gauge in right bp forearm, using aseptic technique. Blood collected. Flushed with 10 mL NS. 13:44 XRAY Chest (1 view) In Process Unspecified. EDMS 14:46 EKG done, by ED staff. kb4 14:57 CT Abd/Pelvis - IV Contrast Only In Process Unspecified. EDMS 15:00 Patient has correct armband on for positive identification. bp 16:50 Eliceo England MD is Hospitalizing Provider. cp 18:07 No provider procedures requiring assistance completed. IV discontinued, intact, bp bleeding controlled, No redness/swelling at site. Pressure dressing applied. 18:08 Provided Education on: na. bp Administered Medications: 13:36 Drug: NS 0.9% IV 1000 ml IV at 1000 ml once; to be given as a bolus over 60 minutes bp Route: IV; Rate: 1000 ml; Site: right forearm; 18:09 Follow up: IV Status: Completed infusion bp 13:38 Drug: Famotidine IVP 20 mg IVP once; dilute with 10 mL 0.9% NaCl; give over 2 minutes bp Route: IVP; Site: right forearm; 16:03 Follow up: Response: Nausea is decreased bp 13:38 Drug: metoCLOPramide IVP 10 mg IVP once; over 1 to 2 minutes Route: IVP; Site: right bp forearm; 16:03 Follow up: Response: Nausea is decreased bp Medication: 18:08 VIS not applicable for this client. bp Outcome: 16:51 Decision to Hospitalize by Provider. cp 17:55 Discharge ordered by MD. cp 18:07 Discharged to home ambulatory, bp 18:07 Condition: stable 18:07 Discharge instructions given to patient, Instructed on discharge instructions, follow up and referral plans. Demonstrated understanding of instructions, follow-up care, 18:08 Patient left the ED. bp Signatures: Dispatcher [employer] EDMS Rashi Miranda PA PA cp Mary Kay Munson, RN RN John Parrish, ARTURO RN bp Altagracia Castaneda alAlondra Cortez kb4 Corrections: (The following items were deleted from the chart) 13:18 13:16 Chief complaint: N/V since 0800 today, actively vomiting in triage. Currently hb being treated for stomach cancer at [facility]. hb
[2024-07-31 18:12] VITALS: TEMP 97.8
[2024-07-31 18:14] VITALS: BP 167/75; O2SAT 96
== END 2024-07-31 18:08 | disposition home or self-care (01) ==
LOC: ER 12:58
DX: K85.90 Acute pancreatitis without necrosis or infection, unspecified (principal); E08.65 Diabetes mellitus due to underlying condition with hyperglycemia; R10.13 Epigastric pain; Z85.028 Personal history of other malignant neoplasm of stomach; Z95.1 Presence of aortocoronary bypass graft
CPT/HCPCS: 96361; 85025; 80048; 36415; 83735; 85610; 80076; 85730; 84484; 83690; 74177; 71045; 96375; 96374; 99284; Q9967; J2765; J7030; 93005

== ENCOUNTER 2024-08-05 13:47 | Emergency (ER) | payer OTHER, BC ==
--- OUTSIDE RECORDS SUMMARY | 2024-08-05 13:54 | XMS REPORT | Clinical Summary ---
Author Name Unknown Organization [facility] Address [address] [place] [address] Care Team Providers Care Domestic Violence Counselor Name Role Phone Margoth Souza MD Primary Care Provider [phone] Mary Jane Cassidy MD Unavailable [phone] Barry He MD Unavailable Patience Hunt MD Unavailable ZhuEagle gomez DO Unavailable [phone] Marianela Hutchinson MD Unavailable [phone] Margoth Souza MD Unavailable Ceci Nicholson MD Unavailable [phone] Marianela Hutchinson MD Primary Care Provider [phone] Sigifredo Davenport MD Unavailable Allergies No known [...] by Tylenol). 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 01/02/2024 04/14/2024 Diabetic ketoacidosis 2023 Overview (01/01/2024): Hospitalized locally 12/03/2023-12/06/2023 Encounters Date Type Department Care Team Description 07/22/2024 Orders Only Ambulatory Treatment [place] - [place] [address] [facility], 8th [place] [address] Marianela Hutchinson MD Adenocarcinoma of stomach (Primary Dx) 07/21/2024 Telephone [facility] - [place] [address] [facility], 8th [place] [address] Rosanna Álvarez, ARTURO Chemotherapy Teaching 07/16/2024 2:40 PM SHEET CATCHER [facility] [address] [place] [address], 7th [place] [address] Marianela Hutchinson MD Adenocarcinoma of stomach (Primary Dx) 07/16/2024 Orders Only [facility] [address] [place] [address], 7th [place] [address] Marianela Hutchinson MD Adenocarcinoma of stomach (Primary Dx) 07/16/2024 Orders Only [facility] [address] [place] [address], 7th [place] [address] Radha Castellon, [facility] Adenocarcinoma of stomach (Primary Dx) 07/16/2024 Travel 07/15/2024 10:08 AM SHEET CATCHER - 07/15/2024 11:59 PM SHEET CATCHER Hospital Encounter CT Imaging and Diagnostic Imaging [address] [place] [address], 3rd [place] [address] Mary Kay Santamaria APRN Adenocarcinoma of stomach Discharge Disposition: Home 07/15/2024 9:49 AM SHEET CATCHER - 07/15/2024 10:07 AM SHEET CATCHER Hospital Encounter [facility] [address] [place] [address] Mary Kay Santamaria APRN Adenocarcinoma of stomach Discharge Disposition: Home 07/07/2024 Orders Only [facility] [address] [place] [address], 7th [place] [address] Gillian Gomez PA-C Adenocarcinoma of stomach (Primary Dx) 07/06/2024 Telephone [facility] - Surgical Oncology [facility] Main dg, 7th [place] [address] Mary Kay Santamaria, PATIENT PLACEMENT COORDINATOR 07/06/2024 Orders Only [facility] - Surgical Oncology [facility] Main dg, 7th [place] [address] Mary Kay Santamaria, PATIENT PLACEMENT COORDINATOR 07/06/2024 Orders Only [facility] [address] [place] [address] Main [facility], 7th [place] [address] Gillian Gomez PA-C Adenocarcinoma of stomach (Primary Dx) 07/06/2024 Multidisciplinary Visit [facility] [address] [place] [address] Main [facility], 7th Floor Elevator A [place] [phone] Gillian Gomez PA-C 07/06/2024 Orders Only [facility] [address] [place] [address] Main dg, 7th [place] [address] Donnell Van Adenocarcinoma of stomach (Primary Dx) 07/02/2024 11:00 AM SHEET CATCHER Nutrition Clinical Nutrition For your Nutrition appointment location directions please call: Marianela Hutchinson MD Munder, Kathryn, SCOTT Left without seen 07/02/2024 10:30 AM SHEET CATCHER [facility] Surgical On[facility] [address] [place] [address] Main Bldg, 7th Floor Elevator A [place] [phone] John Fong MD Adenocarcinoma of stomach 07/02/2024 Documentation [facility] [address] [place] [address] Main dg, 7th Floor Elevator A [place] [phone] John Fong MD 06/30/2024 3:33 PM SHEET CATCHER Anesthesia Event Perioperative Evaluation and Management Center [address] [place] [address] Main dg, 6th Floor Elevator A [place] [phone] Lien Antonio RN 06/30/2024 12:25 PM SHEET CATCHER Anesthesia Event Endoscopy Center [address] [place] [address] Main [facility], 5th [place] [address] Susana Kelly MD 06/30/2024 12:00 PM SHEET CATCHER - 06/30/2024 12:45 PM SHEET CATCHER Surgery [facility]oscopy [facility] [address] [place] [address] Main [facility], 5th [place] [address] Brandon Alcala MD DIAGNOSTIC UPPER GASTROINTESTINAL ENDOSCOPY 06/30/2024 10:15 AM SHEET CATCHER - 06/30/2024 2:24 PM SHEET CATCHER Hospital Encounter Endoscopy Center [address] [place] [address], 5th Floor Elevator C [place] [phone] Brandon Alcala MD Adenocarcinoma of stomach Discharge Disposition: Home 06/30/2024 Travel 06/29/2024 9:00 AM SHEET CATCHER Consult Perioperative Evaluation and Management [address] [place] [address], 6th Floor Elevator A [place] [phone] Mary Kay Santamaria APRN Vu, Khanh D, MD Encounter for preprocedural cardiovascular examination (Primary Dx); Coronary arteriosclerosis, not otherwise specified; Cardiomyopathy, not otherwise specified; Hypertension; prison current use of 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; Type 2 diabetes mellitus with hyperglycemia; Dyslipidemia; Hyponatremia; Hyperkalemia; Adenocarcinoma of stomach; Paroxysmal atrial fibrillation; Hyperlipidemia, not otherwise specified 06/29/2024 8:00 AM SHEET CATCHER POEM Appointments Perioperative [facility] Management Center [address] [place] [address] Main [facility], 6th Floor Elevator A [place] [phone] Marianela Hutchinson MD 06/29/2024 7:30 AM SHEET CATCHER - 06/29/2024 11:59 PM SHEET CATCHER Hospital Encounter [facility] [address] [place] [address] Main [facility], 2nd [place] [address] Mary Kay Santamaria APRN Adenocarcinoma of stomach Discharge Disposition: Home 06/29/2024 Travel 06/23/2024 Documentation [facility] [address] [place] [address], 7th [place] [address] Mony Saavedra, RN 06/22/2024 12:20 PM SHEET CATCHER [facility] [address] [place] [address], [address] [place], [place] [address] [address] Marianela Hutchinson MD Adenocarcinoma, NOS of stomach, NOS 06/22/2024 Orders Only [facility] [address] [place] [address], [address] [place], [place] [address] [address] Radha Castellon, [facility] 06/22/2024 Travel 06/20/2024 10:45 AM SHEET CATCHER - 06/20/2024 11:59 PM SHEET CATCHER Hospital Encounter Diagnostic Imaging Center [address] [place] [address], 3rd [place] [address] Adenocarcinoma, NOS of stomach, NOS; Malignant neoplasm of overlapping sites of esophagus Discharge Disposition: Home 06/20/2024 10:08 AM SHEET CATCHER - 06/20/2024 10:44 AM SHEET CATCHER Hospital Encounter [facility] [address] [place] [address] Gillian Gomez PA-C Adenocarcinoma, NOS of stomach, NOS Discharge Disposition: Home 06/16/2024 [facility] Oncology [address] [place] [address], [address] [place], [place] [address] [address] Mary Kay Santamaria APRN 06/15/2024 1:30 PM SHEET CATCHER Infusion [facility] - [facility] [address] [facility], 8th [place] [address] Marianela Hutchinson MD [facility], Jorge Tyson RN Adenocarcinoma of stomach (Primary Dx); Iron deficiency anemia, not otherwise specified 06/15/2024 12:40 PM SHEET CATCHER [facility] [address] [place] [address], [facility] [place] [address] Marianela Hutchinson MD Adenocarcinoma, NOS of stomach, NOS; Malignant neoplasm of overlapping sites of esophagus 06/15/2024 10:24 AM SHEET CATCHER - 06/15/2024 11:59 PM SHEET CATCHER Hospital Encounter Diagnostic Laboratory Center [facility] [place] [address] Marianela Hutchinson MD Adenocarcinoma of stomach; Adenocarcinoma, NOS of stomach, NOS Discharge Disposition: Home 06/15/2024 Orders Only [facility] [address] [place] [address] Main [facility], 7th [place] [address] Radha Castellon [facility] Adenocarcinoma of stomach (Primary Dx) 06/15/2024 Orders Only [facility] [address] [place] [address], 7th [place] [address] Gillian Gomez PA-C 06/15/2024 Travel 06/15/2024 Telephone [facility] - Gastroenterology, Hepatology & Nutrition [address] [place] [address], [facility] [place] [address] Arnaldo Araujo PA-C 06/15/2024 Multidisciplinary Visit [facility] [address] [place] [address], [address] [place], [place] [address]ator [place] [address] Lakeshia Pablo PA 06/15/2024 Orders Only [facility] [address] [place] [address], [address] [place] [address] Marianela Hutchinson MD Adenocarcinoma of stomach (Primary Dx) 06/12/2024 Prep for Surgery [facility] - Gastroenterology, Hepatology & Nutrition [address] [place] [address], [address] [place] [address] Arnaldo Araujo PA-C Adenocarcinoma of stomach (Primary Dx) 06/12/2024 Telephone [facility] - Surgical Oncology [address] [place] [address], [address] [place], [place] [address] [address] Mary Kay Santamaria APRN 06/12/2024 Orders Only [facility] - Surgical Oncology [address] [place] [address] Main [facility], [facility] [place] [address] Mary Kay Santamaria, FRANK Adenocarcinoma of stomach (Primary Dx) 06/10/2024 Orders Only [facility] - Surgical Oncology [address] [place] [address], 7th [place] [address] Mary Kay Santamaria APRN Adenocarcinoma of stomach (Primary Dx) 06/05/2024 Telephone [facility] - Gastroenterology, Hepatology & Nutrition [address] [place] [address], 7th [place] [address] Arnaldo Araujo PA-C 06/03/2024 5:30 PM SHEET CATCHER Infusion [facility] - [facility] [address] [facility], 8th [place] [address] Marianela Hutchinson MD Lewandowski, Teresa M, RN Adenocarcinoma of stomach (Primary Dx) 06/03/2024 Travel 06/02/2024 Telephone [facility] [address] [place] [address], 7th [place] [address] Mony Saavedra RN 06/01/2024 1:00 PM SHEET CATCHER Infusion [facility] [address] [facility], Floor 6 [place] [address] Marianela Hutchinson MD Shaik, Anna Marie B, RN Adenocarcinoma of stomach (Primary Dx); Iron deficiency anemia, not otherwise specified 06/01/2024 10:53 AM SHEET CATCHER - 06/01/2024 11:59 PM SHEET CATCHER Hospital Encounter [facility] [address] [place] [address] Marianela Hutchinson MD Adenocarcinoma of stomach; Iron deficiency anemia, not otherwise specified Discharge Disposition: Home 06/01/2024 Orders Only [facility] [address] [place] [address], 7th [place] [address] Marianela Hutchinson MD 06/01/2024 Orders Only [facility] [address] [place] [address], 7th [place] [address] Radha Castellon [facility] Adenocarcinoma of stomach (Primary Dx); Iron deficiency anemia, not otherwise specified 06/01/2024 Travel 06/01/2024 Orders Only [facility] [address] [facility], Floor 6 [place] [address] Marianela Hutchinson MD Adenocarcinoma of stomach (Primary Dx) 05/26/2024 Telephone [facility] - Gastroenterology, Hepatology & Nutrition [address] [place] [address] Main [facility], 7th [place] [address] Arnaldo Araujo PA-C 05/22/2024 Telephone [facility] - Gastroenterology, Hepatology & Nutrition [facility] Main [facility], 7th [place] [address] Arnaldo Araujo PA-C 05/22/2024 Orders Only [facility] - Gastroenterology, Hepatology & Nutrition [address] [place] [address], 7th [place] [address] Arnaldo Araujo PA-C Candidal esophagitis (Primary Dx) 05/20/2024 4:30 PM SHEET CATCHER - 05/20/2024 11:59 PM SHEET CATCHER Hospital Encounter Ambulatory Treatment Center - [address], 2nd Floor, [place] [address] Marianela Hutchinson MD Lewandowski, Teresa M RN Adenocarcinoma of stomach Discharge Disposition: Home 05/19/2024 12:44 PM SHEET CATCHER Anesthesia Event Endoscopy Center [address] [place] [address], 5th [place] [address] Maurice Ferrera MD Thomas, Ashly [facility] 05/19/2024 12:00 PM SHEET CATCHER - 05/19/2024 1:10 PM SHEET CATCHER Surgery Endoscopy Center [address] [place] [address] Main [facility], 5th [place] [address] Brandon Alcala MD UPPER GASTROINTESTINAL ENDOSCOPY OF ESOPHAGUS, STOMACH, OR DUODENUM ANDJ ADJACENT STRUCTURES, WITH ENDOSCOPIC ULTRASOUND EXAMINATION 05/19/2024 11:17 AM SHEET CATCHER - 05/19/2024 2:49 PM SHEET CATCHER Hospital Encounter Endoscopy Center [address] [place] [address] Main [facility], 5th [place] [address] Brandon Alcala MD Adenocarcinoma of stomach Discharge Disposition: Home 05/19/2024 Travel 05/18/2024 1:00 PM SHEET CATCHER Infusion [facility] [address] [facility], Floor 6 [place] [address] Marianela Hutchinson MD Rupp, Alexa B, RN Adenocarcinoma of stomach (Primary Dx) 05/18/2024 12:20 PM SHEET CATCHER [facility] [address] [place] [address], [facility] [place] [address] Marianela Hutchinson MD Adenocarcinoma, NOS of stomach, NOS 05/18/2024 11:00 AM SHEET CATCHER POEM Appointments Perioperative Evaluation and Management Center [address] [place] [address] [place] [address] Marianela Hutchinson MD 05/18/2024 10:32 AM SHEET CATCHER - 05/18/2024 11:59 PM SHEET CATCHER Hospital Encounter [facility] [address] [place] [address] Gillian Gomez PA-C Adenocarcinoma, NOS of stomach, NOS Discharge Disposition: Home 05/18/2024 Orders Only [facility] [address] [place] [address], [address] [place] [address] Marianela Hutchinson MD Adenocarcinoma of stomach (Primary Dx) 05/18/2024 Orders Only [facility] [address] [place] [address] Radha Castellon [facility] Adenocarcinoma of stomach (Primary Dx); Iron deficiency anemia, not otherwise specified 05/18/2024 Travel 05/15/2024 11:59 PM SHEET CATCHER Anesthesia Event Perioperative Evaluation [facility] Management Center [address] [place], [place] [address] [address] Eri Lynne, RN 05/06/2024 5:30 PM SHEET CATCHER Infusion [facility] - [place] [address] [facility], 8th [place] [address] Marianela Hutchinson MD Pagara, Leni S, RN Adenocarcinoma of stomach 05/04/2024 12:36 PM SHEET CATCHER - 05/04/2024 11:59 PM SHEET CATCHER Hospital Encounter Ambulatory Treatment Center - Main [address], 2nd Floor, [place] [address] Gillian Gomez PA-C Jo, Edifia Sungsoon, RN Adenocarcinoma of stomach (Primary Dx) Discharge Disposition: Home 05/04/2024 12:20 PM SHEET CATCHER [facility] [address] [place] [address], 7th [place] [address] Marianela Hutchinson MD Adenocarcinoma, NOS of stomach, NOS 05/04/2024 11:10 AM SHEET CATCHER - 05/04/2024 12:35 PM SHEET CATCHER Hospital Encounter [facility] Center [address] [place], [place] [address] Gillian Gomez PA-C Adenocarcinoma, NOS of stomach, NOS; Adenocarcinoma of stomach Discharge Disposition: Home 05/04/2024 Orders Only [facility] [address] [place] [address], 7th [place] [address] Marianela Hutchinson MD Adenocarcinoma of stomach (Primary Dx) 05/04/2024 Orders Only [facility] [address] [place] [address], 7th Floor Elevator A [place] [phone] Radha Castellon [facility] Adenocarcinoma of stomach (Primary Dx) 05/04/2024 Travel 04/30/2024 Orders Only [facility] - Surgical Oncology [address] [place] [address], 7th [place] [address] Mary Kay Santamaria APRN Adenocarcinoma of stomach (Primary Dx); Paroxysmal atrial fibrillation; Hyperlipidemia, not otherwise specified; Type 2 diabetes mellitus with hyperglycemia 04/27/2024 8:05 PM SHEET CATCHER Ancillary Procedure Image Library [address] [place] [address] Cancer 04/27/2024 8:00 PM SHEET CATCHER Ancillary Procedure Image [facility] [address] [place] [address] Cancer 04/27/2024 Orders Only [facility] [address] [place] [address], 7th [place] [address] Donnell Van Adenocarcinoma of stomach (Primary Dx) 04/24/2024 Documentation [facility] Access [facility] Procedures Center [address] [facility], 8th [place] [address] Mary Kay Santamaria, FRANK 04/24/2024 Orders Only [facility] - Surgical Oncology [address] [place] [address], 7th [place] [address] Mary Kay Santamaria, PATIENT PLACEMENT COORDINATOR Adenocarcinoma, NOS of stomach, NOS (Primary Dx) 04/24/2024 Telephone [facility] - Surgical Oncology [address] [place] [address], 7th [place] [address] Mary Kay Santamaria, FRANK 04/22/2024 Lab Requisition [facility] Sincere Moralez MD Jain, Shilpa, MD 04/21/2024 Orders Only [facility] [address] [place] [address], 7th [place] [address] Gillian Gomez PA-C Adenocarcinoma, NOS of stomach, NOS (Primary Dx); Adenocarcinoma of stomach 04/16/2024 Telephone [facility] [address] [place] [address] 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, nuclear weapons specialist Call 04/15/2024 10:09 AM SHEET CATCHER Anesthesia Event MAIN OR [address] [place], [place] [id number] Meenakshi Crowe MD Miller, Wendy, PLANISHER 04/15/2024 10:05 AM SHEET CATCHER - 04/15/2024 1:25 PM SHEET CATCHER Surgery MAIN OR [address] [place] [address] John Fong MD ROBOTIC ASSISTED SURGICAL LAPAROSCOPY 04/15/2024 7:32 AM SHEET CATCHER - 04/15/2024 11:50 PM SHEET CATCHER Hospital Encounter MAIN OR [address] [place] [address] John Fong MD Adenocarcinoma of stomach (Primary Dx) Discharge Disposition: Home 04/15/2024 Travel 04/14/2024 2:30 PM SHEET CATCHER Consult [facility] - Surgical Oncology [address] [place] [address] Main [facility], 7th [place] [address] Gillian Gomez PA-C Badgwell, Brian, MD Adenocarcinoma, NOS of stomach, NOS (Primary Dx); Nausea 04/14/2024 Documentation [facility] - Surgical Oncology [address] [place] [address], 7th [place] [address] John Fong MD 04/13/2024 3:00 PM SHEET CATCHER Consult [facility] [address] [place] [address], 7th [place] [address] Marianela Hutchinson MD Mass of stomach (Primary Dx) 04/13/2024 2:02 PM SHEET CATCHER Anesthesia Event Perioperative Evaluation and Management Center [address] [place] [address], 6th [place] [address] Curtis Moctezuma PA 04/12/2024 8:22 AM SHEET CATCHER - 04/12/2024 3:42 PM SHEET CATCHER Emergency MAIN P06B [address] [place] [address] Nghia Zhu MD Elsayem, Ahmed, MD Nausea and vomiting (Primary Dx); Gastric cancer; Pancreatitis Discharge Disposition: Left Against Medical Advice 04/12/2024 Travel 04/09/2024 8:25 PM SHEET CATCHER Ancillary Procedure Image Library [address] [place] [address] Margoth Souza MD Cancer 04/09/2024 8:20 PM SHEET CATCHER Ancillary Procedure Image Library [address] [place] [address] Margoth Souza MD Cancer 04/09/2024 8:15 PM SHEET CATCHER Ancillary Procedure Image Library [address] [place] [address] Margoth Souza MD Cancer 04/09/2024 8:10 PM SHEET CATCHER Ancillary Procedure Image Library [address] [place] [address] Margoth Souza MD Cancer 04/09/2024 8:05 PM SHEET CATCHER Ancillary Procedure Image Library [address] [place] [address] Margoth Souza MD Cancer 04/09/2024 8:00 PM SHEET CATCHER Ancillary Procedure Image Library [address] [place] [address] Margoth Souza MD Cancer 04/09/2024 10:48 AM SHEET CATCHER - 04/09/2024 11:59 PM SHEET CATCHER Hospital Encounter [facility] [address] [place] [address] Ceci Nicholson MD Encounter for other preprocedural examination; Atherosclerosis of coronary 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, not otherwise specified; 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 Discharge Disposition: Home 04/09/2024 10:00 AM SHEET CATCHER POEM Appointments Perioperative Evaluation and Management Center [address] [place] [address], 6th [place] [address] Margoth Souza MD 04/09/2024 9:56 AM SHEET CATCHER - 04/09/2024 10:47 AM SHEET CATCHER Hospital Encounter [facility] - Cardiology [address] [place] [address], 2nd [place] [address] Ceci Nicholson MD Adenocarcinoma of stomach; Hyperlipidemia, not otherwise specified; Encounter for other preprocedural examination; Atherosclerosis of coronary 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, not otherwise specified Discharge Disposition: Home 04/09/2024 9:00 AM SHEET CATCHER Consult Perioperative Evaluation and Management [address] [place] [address], 6th [place] [address] Mary Kay Santamaria APRN Misoi, Mercy W, MD Encounter for other preprocedural examination (Primary Dx); Adenocarcinoma of stomach; Paroxysmal atrial fibrillation; Hypertension; 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; Hyperlipidemia, not otherwise specified; Current use of 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; Atherosclerosis of coronary 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, not otherwise specified 04/09/2024 Travel 04/08/2024 Prep for Surgery [facility] - [facility] On[facility] [address] [place] [address], [address] [place] [address] Mary Kay Santamaria APRN Adenocarcinoma of stomach (Primary Dx); Mass of stomach 04/08/2024 Orders Only [facility] - Surgical Oncology [address] [place] [address], [address] [place] [address] Mary Kay Santamaria APRN Adenocarcinoma of stomach (Primary Dx); Paroxysmal atrial fibrillation; Hypertension; 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; Hyperlipidemia, not otherwise specified; Current use of 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 04/08/2024 Orders Only [facility] [address] [place] [address], [address] [place] [phone] Gillian Gomez PA-C Adenocarcinoma, NOS of stomach, NOS (Primary Dx) 04/06/2024 Orders Only [facility] [address] [place] [address], [address] [place] [address] Roberto Poole PA 04/06/2024 Orders Only [facility] [address] [place] [address], [address] [place] [address] Roberto Poole PA Mass of stomach (Primary Dx) 04/06/2024 Orders Only [facility] [address] [place] [address], [address] [place] [address] [place] [address] Roberto Poole PA Mass of stomach (Primary Dx) 04/06/2024 Telephone [facility] [address] [place] [address], [address] [place] [address] Anais Meng RN 02/11/2024 Travel 02/10/2024 3:30 PM CDT Telemedicine [facility] [address] [place] [address], 7th [place] [address] Margoth Souza MD Renal mass (Primary Dx) 01/02/2024 7:15 AM CDT Ancillary Procedure MAIN OR [address] [place], [place] [id number] Margoth Souza MD 01/02/2024 7:00 AM CDT - 01/02/2024 11:40 AM CDT Surgery MAIN OR [address] [place] [address] Margoth Souza MD ROBOTIC ASSISTED PARTIAL NEPHRECTOMY 01/02/2024 6:58 AM CDT Anesthesia Event MAIN OR [address] [place] [address] Alonzo Liu MD Majekodumi, Jessy, PAXTON 01/02/2024 5:04 AM CDT - 01/03/2024 5:05 PM CDT Hospital Encounter MAIN P09B [address] [place] [address] Margoth Souza MD Renal mass (Primary Dx) Discharge Disposition: Home 01/02/2024 Travel 12/31/2023 1:04 PM CDT - 12/31/2023 11:59 PM CDT Hospital Encounter CT Imaging [facility] Diagnostic [facility] [address] [place] [address], 3rd [place] [address] Margoth Souza MD Renal mass Discharge Disposition: Home 12/31/2023 8:00 AM CDT Consult [facility] [address] [place] [address], 6th [place] [address] Nakia Kirby APRN Khan, Sonya, MD Type 2 diabetes mellitus with hyperglycemia [E11.65] (Primary Dx); Pre-surgery evaluation 12/30/2023 9:30 AM CDT Office Visit [facility], 7th [place] [address] Margoth Souza MD Renal mass 12/30/2023 Travel 12/30/2023 Telephone [facility] [address] [place] [address], 6th [place] [address] Winnie Archibald, ARTURO Appointment (Cannot get internet-phone broke) 12/30/2023 Orders Only [facility] [address] [facility], 7th [place] [address] Roberto Poole PA Renal mass (Primary Dx) 12/29/2023 Orders Only [facility] [address] [place] [address], [address] [place] [address] [place] [address] Veronica Del Castillo APRN 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); Endocrine/metabolic screening; Renal cell carcinoma <Left side> 12/25/2023 8:36 AM CDT Anesthesia Event [facility] [address] [place], [place] [address] [address] Lien Antonio RN 12/23/2023 10:30 AM CDT Consult Perioperative Evaluation and Management [address] [place] [address] [place] [address] Margoth Souza MD Oh, Jeong, MD Encounter for other preprocedural examination (Primary Dx); Renal mass; Hyperlipidemia, not otherwise specified 12/23/2023 9:00 AM CDT POEM Appointments [facility] [address] [place] [address] Margoth Souza MD Pre-surgery evaluation (Primary Dx) 12/23/2023 8:45 AM CDT - 12/23/2023 11:59 PM CDT Hospital Encounter [facility] [address] [place] [address] Margoth Souza MD Renal mass Discharge Disposition: Home 12/23/2023 Travel 12/09/2023 9:33 AM CDT - 12/09/2023 11:59 PM CDT Hospital Encounter [facility] [address] [place] [address] You-Evonne, Leah-Zora, PATIENT PLACEMENT COORDINATOR 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; Endocrine/metabolic screening Discharge Disposition: Home 12/09/2023 8:30 AM CDT Consult Endocrine Center [address] [facility], 6th [place] [address] Mary Jane Cassidy MD 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); Endocrine/metabolic screening; Renal cell carcinoma <Left side> 12/09/2023 Travel 10/23/2023 Orders Only [facility] [address] [place] [address], 7th [place] [address] Roberto Poole PA Renal mass (Primary Dx); Adrenal mass 10/03/2023 9:30 AM CDT - 10/03/2023 11:59 PM CDT Hospital Encounter Interventional Radiology [address] [place] [address], 4th [place] [address] Shazia Arriaza MD McRae, Stephen, MD Renal mass Discharge Disposition: Home 10/03/2023 8:30 AM CDT - 10/03/2023 9:29 AM CDT Hospital Encounter [facility] [address] [place] [address] Margoth Souza MD Renal mass Discharge Disposition: Home 10/03/2023 Travel 10/02/2023 8:24 AM CDT - 10/02/2023 11:59 PM CDT Hospital Encounter Interventional Radiology [address] [place] [address], 4th [place] [address] Margoth Souza MD Ho, Thanh-Trang D, PA-C Encounter for other preprocedural examination (Primary Dx); Renal mass; 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 Discharge Disposition: Home 10/02/2023 Travel 09/24/2023 7:46 AM CDT - 09/24/2023 11:59 PM CDT Hospital Encounter [facility] [address] [place] [address] Roberto Poole PA Adrenal mass Discharge Disposition: Home 09/20/2023 Orders Only [facility] [address] [place] [address], 7th [place] [address] Roberto Poole PA Adrenal mass (Primary Dx) 09/19/2023 11:45 AM CDT Ancillary Procedure X-Ray Outpatient Center [address] [place] [address], 7th [place] [address] Shazia Arriaza MD Renal mass 09/19/2023 9:20 AM CDT - 09/19/2023 11:59 PM CDT Hospital Encounter [facility] [address] [place] [address] Shazia Arriaza MD Adenoma, NOS of adrenal gland, NOS <Left> Discharge Disposition: Home 09/19/2023 Orders Only Interventional Radiology [address] [place] [address], 4th [place] [address] Abilio Ng PA-C Renal mass (Primary Dx) 09/19/2023 Travel 09/19/2023 Telephone [facility] [id number] [place] [address] Barbara Rees MA 09/16/2023 4:00 PM CDT - 09/16/2023 11:59 PM CDT Hospital Encounter [facility] [address] [place] [address] Shazia Arriaza MD Renal mass; Adrenal mass Discharge Disposition: Home 09/16/2023 2:00 PM CDT Office Visit [facility] [address] [place] [address], [facility] [place] [address] Margoth Souza MD Renal mass (Primary Dx); Adrenal mass; Adenoma, NOS of adrenal gland, NOS <Left>; 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 09/16/2023 12:30 PM CDT NPR MDA PATIENT ACCESS 09/16/2023 Travel 08/08/2023 8:00 PM CDT Ancillary Procedure [facility] [address] [place] [address] Margoth Souza MD Cancer 08/08/2023 6:40 AM CDT Ancillary Procedure [facility] [address] [place] [address] Margoth Souza MD Cancer after 08/06/2023 Surgical History Surgery Date Site/Laterality Comments TOE [...] 12/03/2023-12/06/2023 of note, pt was on [facility] Peripheral vascular disease 2023 Left LE [...] on file Legal Sex Male 11:38 AM SHEET CATCHER Gender Identity Not on file Sexual Orientation Not on file Occupation Industry Job Start Date Job End Date retired from [employer] Not on file N ot on file Not on file Travel History Travel Start Travel End [place] 04/12/2024 04/12/2024 Obstetrics History Last Filed Vital Signs Vital Sign Reading Time Taken Comments Blood Pressure 147/83 07/16/2024 2:11 PM SHEET CATCHER Pulse 78 07/16/2024 2:11 PM SHEET CATCHER Temperature 36.5 C (97.7 F) 07/16/2024 2:11 PM CS T Respiratory Rate 18 07/16/2024 2:11 PM SHEET CATCHER Oxygen Saturation 98% 07/16/2024 2:11 PM SHEET CATCHER Inhaled Oxygen Concentration - - Weight 38.7 kg (85 lb 4.8 oz) 07/16/2024 2:11 PM SHEET CATCHER Height 188 cm (6' 2") 05/19/2024 11:53 AM SHEET CATCHER Body Mass Index 10.95 05/19/2024 11:53 AM SHEET CATCHER Plan of Treatment Upcoming Encounters Date Type Department Care Team (Late st Contact Info) Description 08/06/2024 8:30 AM CDT Appointment [facility] [address] [place] [address] Marianela Hutchinson MD [address] [place] [address] [email or web address] 08/06/2024 9:20 AM CDT Follow-Up Gastrointestinal Center [address] [place] [address], 7th [place] [address] Marianela Hutchinson MD [address] [place] [phone] [email or web address] 08/06/2024 9:45 AM CDT [facility] [address] [place] [address], 8th [place] [address] Marianela Hutchinson MD [address] [place] [phone] [email or web address] 08/20/2024 11:30 AM CDT Appointment [facility] [address] [place] [address] Marianela Hutchinson MD [address] [place] [phone] [email or web address] 08/20/2024 12:30 PM CDT Infusion Amb[facility] [place] [facility] [address] [place] [address], 8th [place] [address] Marianela Hutchinson MD [address] [place] [address] [email or web address] 09/03/2024 11:30 AM CDT Appointment [facility] [address] [place] [address] Marianela Hutchinson MD [address] [place] [phone] [email or web address] 09/03/2024 12:30 PM CDT Infusion Ambulatory [facility] [place] [facility] [place] [address] [place] [address], 8th [place] [address] Marianela Hutchinson MD [address] [place] [address] [email or web address] 02/01/2025 11:30 AM CDT Appointment [facility] [address] [place] [address] Veronica Del Castillo, PATIENT PLACEMENT COORDINATOR [address] [place] [address] [email or web address] 02/01/2025 11:[address] Imaging and Diagnostic Imaging [address] [place] [address], 3rd [place] [address] Veronica Del Castillo, FRANK [facility] [place] [address] [email or web address] 02/01/2025 3:00 PM CDT Follow-Up Endocrine Center [address] [place] [address], 6th [place] [address] Mary Jane Cassidy MD [address] [place] [phone] [email or web address] 02/05/2025 10:45 AM CDT Lab [facility] [address] [place] [address], [facility] [place] [address] Margoth Souza MD [address] [place] [address] [email or web address] 02/05/2025 11:15 AM CDT Ancillary Procedure [facility]-Ray Outpatient Center [address] [place] [address], [address] [place] [address] Margoth Souza MD [address] [place] [phone] [email or web address] 02/05/2025 11:55 AM CDT Ancillary Procedure CT Imaging [address] [place] [address], [address] [place], [place] [address] [address] Margoth Souza MD [address] [place] [address] [email or web address] 02/08/2025 2:30 PM CDT Telemedicine [facility] [address] [place] [address], 7th [place] [address] Margoth Souza MD [address] [place] [address] [email or web address] Maintenance Due Date Last Done Comments COVID-19 Vaccine (#1) 01/09/1969 Pneumococcal Vaccine: 50+ Years (1 of 2 - PCV) 983 01/09/1975 Influenza Vaccine (#1) 2024 08/04/2018 Medical Devices Implanted Type Area [employer] Device Identifier Shelf Expiration Date Model / Serial / Lot Slade Muhammad 6fr - [id number] Implanted:Qty: 1 on 04/15/2024 by John Fong MD at [facility] Implant Right: Neck [employer] 12/17/2024 [id number] / / [id number] Procedures Procedure Name Priority Date/Time Associated Diagnosis Comments CT CHEST ABDOMEN PELVIS W CONTRAST Routine 07/15/2024 4:38 PM SHEET CATCHER Adenocarcinoma of stomach .CBC Routine 07/15/2024 10:01 AM SHEET CATCHER Adenocarcinoma of stomach CARCINOEMBRYONIC ANTIGEN Routine 025 10:01 AM SHEET CATCHER Adenocarcinoma of stomach LACTATE DEHYDROGENASE Routine 07/15/2024 10:01 AM SHEET CATCHER Adenocarcinoma of stomach PHOSPHORUS LEVEL Routine 07/15/2024 10:01 AM SHEET CATCHER Adenocarcinoma of stomach MAGNESIUM LEVEL Routine 07/15/2024 10:01 AM SHEET CATCHER Adenocarcinoma of stomach COMPREHENSIVE METABOLIC PANEL Routine 10:01 AM SHEET CATCHER Adenocarcinoma of stomach COMPLETE BLOOD COUNT W/ DIFFERENTIAL Routine 07/15/2024 10:01 AM SHEET CATCHER Adenocarcinoma of stomach RESEARCH PROTOCOL [id number] Routine 07/15 10:01 AM SHEET CATCHER Adenocarcinoma of stomach [facility] AP IHC WORKUP Routine 07/07/2024 12:29 PM SHEET CATCHER Adenocarcinoma of stomach POC GLUCOSE SCREEN Routine 06/30/2024 1:23 PM SHEET CATCHER PATHOLOGY BIOPSY INTERPRETATION Routine 06/30/2024 12:51 PM SHEET CATCHER Adenocarcinoma of stomach UT ESOPHAGOGASTRODUODENOSCOP Y TRANSORAL DIAGNOSTIC 06/30/2024 12:15 PM SHEET CATCHER Adenocarcinoma of stomach Case Notes 06/12 per gene to schedule on 06/30, per tor to schedule 06/30 thru lunch last AM case, slot held to offer. LVM and sent mychart to schedule-DC Special Needs SENIOR CLINICAL DATA MANAGER CHRIS COMPLETE 06/18.SENIOR CLINICAL DATA MANAGER CHRIS LVM FOR DAUGHTER WITH DETAILED INSTRUCTIONS FOR PROCEDURE IN ADDITION TO HOLD ON PLAVIX FOR 5 DAYS.SENIOR CLINICAL DATA MANAGER CHRIS LVM 1ST CALL 06/16. POC CHEM 8 Routine 06/30/2024 11:10 AM SHEET CATCHER POC GLUCOSE SCREEN Routine 06/30/2024 10:52 AM SHEET CATCHER POC CHEM 8 Routine 06/29/2024 9:54 AM SHEET CATCHER EKG, 12-LEAD (SCHEDULED) Routine 06/29/2024 Adenocarcinoma of stomach PETCT F18 FDG (FLUORODEOXYGLUCOSE) WITH CONTRAST Routine 06/20/2024 12:42 PM SHEET CATCHER Adenocarcinoma, NOS of stomach, NOS Malignant neoplasm of overlapping sites of esophagus POC GLUCOSE SCREEN Routine 06/20/2024 11:06 AM SHEET CATCHER .CBC Routine 06/20/2024 10:35 AM SHEET CATCHER Adenocarcinoma, NOS of stomach, NOS CARCINOEMBRYONIC ANTIGEN Routine 025 10:35 AM SHEET CATCHER Adenocarcinoma, NOS of stomach, NOS LACTATE DEHYDROGENASE Routine 06/20/2024 10:35 AM SHEET CATCHER Adenocarcinoma, NOS of stomach, NOS PHOSPHORUS LEVEL Routine 06/20/2024 10:35 AM SHEET CATCHER Adenocarcinoma, NOS of stomach, NOS MAGNESIUM LEVEL Routine 06/20/2024 10:35 AM SHEET CATCHER Adenocarcinoma, NOS of stomach, NOS COMPREHENSIVE METABOLIC PANEL Routine 10:35 AM SHEET CATCHER Adenocarcinoma, NOS of stomach, NOS COMPLETE BLOOD COUNT W/ DIFFERENTIAL Routine 06/20/2024 10:35 AM SHEET CATCHER Adenocarcinoma, NOS of stomach, NOS .CBC Routine 06/15/2024 10:39 AM SHEET CATCHER Adenocarcinoma of stomach CARCINOEMBRYONIC ANTIGEN Routine 025 10:39 AM SHEET CATCHER Adenocarcinoma, NOS of stomach, NOS LACTATE DEHYDROGENASE Routine 06/15/2024 10:39 AM SHEET CATCHER Adenocarcinoma, NOS of stomach, NOS PHOSPHORUS LEVEL Routine 06/15/2024 10:39 AM SHEET CATCHER Adenocarcinoma, NOS of stomach, NOS MAGNESIUM LEVEL Routine 06/15/2024 10:39 AM SHEET CATCHER Adenocarcinoma, NOS of stomach, NOS COMPREHENSIVE METABOLIC PANEL Routine 10:39 AM SHEET CATCHER Adenocarcinoma of stomach COMPLETE BLOOD COUNT W/ DIFFERENTIAL Routine 06/15/2024 10:39 AM SHEET CATCHER Adenocarcinoma of stomach .CBC Routine 06/01/2024 11:10 AM SHEET CATCHER Adenocarcinoma of stomach TRANSFERRIN Routine 06/01/2024 11:10 AM SHEET CATCHER Iron deficiency anemia, not otherwise specified Adenocarcinoma of stomach FERRITIN Routine 06/01/2024 11:10 AM SHEET CATCHER Iron deficiency anemia, not otherwise specified Adenocarcinoma of stomach IRON LEVEL Routine 06/01/2024 11:10 AM SHEET CATCHER Iron deficiency anemia, not otherwise specified Adenocarcinoma of stomach COMPREHENSIVE METABOLIC PANEL Routine 11:10 AM SHEET CATCHER Adenocarcinoma of stomach COMPLETE BLOOD COUNT W/ DIFFERENTIAL Routine 06/01/2024 11:10 AM SHEET CATCHER Adenocarcinoma of stomach POC GLUCOSE SCREEN Routine 05/19/2024 1:52 PM SHEET CATCHER PATHOLOGY BIOPSY INTERPRETATION Routine 05/19/2024 1:10 PM SHEET CATCHER Adenocarcinoma of stomach UT ESOPHAGOGASTRODUODENOSCOP Y US SCOPE W/ADJ STRXRS 05/19/2024 12:34 PM SHEET CATCHER Adenocarcinoma of stomach Case Notes 04/24- WAITING FOR TRIAGE TO CA FOR 05/01- Special Needs SENIOR CLINICAL DATA MANAGER Mtichlissa Call Completed 04/30/24ad laproscopy on 04/15/24 POC GLUCOSE SCREEN Routine 05/19/2024 12:21 PM SHEET CATCHER .CBC Routine 05/18/2024 10:55 AM SHEET CATCHER Adenocarcinoma, NOS of stomach, NOS CARCINOEMBRYONIC ANTIGEN Routine 024 10:55 AM SHEET CATCHER Adenocarcinoma, NOS of stomach, NOS LACTATE DEHYDROGENASE Routine 05/18/2024 10:55 AM SHEET CATCHER Adenocarcinoma, NOS of stomach, NOS PHOSPHORUS LEVEL Routine 05/18/2024 10:55 AM SHEET CATCHER Adenocarcinoma, NOS of stomach, NOS MAGNESIUM LEVEL Routine 05/18/2024 10:55 AM SHEET CATCHER Adenocarcinoma, NOS of stomach, NOS COMPREHENSIVE METABOLIC PANEL Routine 10:55 AM SHEET CATCHER Adenocarcinoma, NOS of stomach, NOS COMPLETE BLOOD COUNT W/ DIFFERENTIAL Routine 05/18/2024 10:55 AM SHEET CATCHER Adenocarcinoma, NOS of stomach, NOS .CBC Routine 05/04/2024 11:34 AM SHEET CATCHER Adenocarcinoma, NOS of stomach, NOS RESEARCH PROTOCOL [id number] Routine 05/04 11:34 AM SHEET CATCHER Adenocarcinoma of stomach CARCINOEMBRYONIC ANTIGEN Routine 024 11:34 AM SHEET CATCHER Adenocarcinoma, NOS of stomach, NOS LACTATE DEHYDROGENASE Routine 05/04/2024 11:34 AM SHEET CATCHER Adenocarcinoma, NOS of stomach, NOS PHOSPHORUS LEVEL Routine 05/04/2024 11:34 AM SHEET CATCHER Adenocarcinoma, NOS of stomach, NOS MAGNESIUM LEVEL Routine 05/04/2024 11:34 AM SHEET CATCHER Adenocarcinoma, NOS of stomach, NOS COMPREHENSIVE METABOLIC PANEL Routine 11:34 AM SHEET CATCHER Adenocarcinoma, NOS of stomach, NOS COMPLETE BLOOD COUNT W/ DIFFERENTIAL Routine 05/04/2024 11:34 AM SHEET CATCHER Adenocarcinoma, NOS of stomach, NOS VERIFY CATHETER TIP PLACEMENT Routine 3:50 PM SHEET CATCHER Adenocarcinoma of stomach POC GLUCOSE SCREEN Routine 04/15/2024 3:21 PM SHEET CATCHER XR CHEST 1 VW PORTABLE Routine 2:45 PM SHEET CATCHER POC GLUCOSE SCREEN Routine 04/15/2024 1:05 PM SHEET CATCHER POC GLUCOSE SCREEN Routine 04/15/2024 12:52 PM SHEET CATCHER CYTOLOGY NON-FINISHING MACHINE TENDER INTERPRETATION Routine 04/15/2024 12:33 PM SHEET CATCHER Adenocarcinoma of stomach PATHOLOGY SURGICAL INTERPRETATION Routine 04/15/2024 12:13 PM SHEET CATCHER Adenocarcinoma of stomach [place] CENTRAL VENOUS PLACE EXCHANGE Routine 04/15/2024 11:40 AM SHEET CATCHER Adenocarcinoma of stomach POC GLUCOSE SCREEN Routine 04/15/2024 9:22 AM SHEET CATCHER UT INSJ TUNNELED CTR VAD W/SUBQ PORT AGE 5 YR/> 04/15/2024 9:16 AM SHEET CATCHER Adenocarcinoma of stomach Special Needs MTL@0800 UT US VASC ACCESS SITS VSL PATENCY NDL ENTRY 04/15/2024 9:16 AM SHEET CATCHER Adenocarcinoma of stomach Special Needs MTL@0800 UT FLUORO CENTRAL VENOUS ACCESS DEV PLACEMENT 04/15/2024 9:16 AM SHEET CATCHER Adenocarcinoma of stomach Special Needs MTL@0800 UT LAPS ABD PRTM&OMENTUM DX W/WO SPEC BR/WA SPX 04/15/2024 9:16 AM SHEET CATCHER Adenocarcinoma of stomach Special Needs MTL@0800 CT ABDOMEN PELVIS W CONTRAST Routine 11:18 AM SHEET CATCHER .CBC Routine 04/12/2024 9:04 AM SHEET CATCHER LIPASE LEVEL Routine 04/12/2024 9:04 AM SHEET CATCHER AMYLASE LEVEL Routine 04/12/2024 9:04 AM SHEET CATCHER LACTATE DEHYDROGENASE Routine 04/12/2024 9:04 AM SHEET CATCHER FRACTIONATED BILIRUBIN Routine 9:04 AM SHEET CATCHER PHOSPHORUS LEVEL Routine 04/12/2024 9:04 AM SHEET CATCHER MAGNESIUM LEVEL Routine 04/12/2024 9:04 AM SHEET CATCHER COMPREHENSIVE METABOLIC PANEL Routine 9:04 AM SHEET CATCHER COMPLETE BLOOD COUNT W/ DIFFERENTIAL Routine 04/12/2024 9:04 AM SHEET CATCHER .CBC Routine 04/09/2024 11:09 AM SHEET CATCHER Encounter for other preprocedural examination Atherosclerosis of coronary 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, not otherwise specified THYROID STIMULATING HORMONE Routine 03/21 11:09 AM SHEET CATCHER Encounter for other preprocedural examination Atherosclerosis of coronary 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, not otherwise specified HEMOGLOBIN A1C Routine 04/09/2024 11:09 AM SHEET CATCHER 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 Encounter for other preprocedural examination COMPREHENSIVE METABOLIC PANEL Routine 11:09 AM SHEET CATCHER Encounter for other preprocedural examination Atherosclerosis of coronary 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, not otherwise specified COMPLETE BLOOD COUNT W/ DIFFERENTIAL Routine 04/09/2024 11:09 AM SHEET CATCHER Encounter for other preprocedural examination Atherosclerosis of coronary 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, not otherwise specified EKG, 12-LEAD (SCHEDULED) Routine 04/09/2024 Adenocarcinoma of stomach Hyperlipidemia, not otherwise specified Encounter for other preprocedural examination Atherosclerosis of coronary 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, not otherwise specified PATHOLOGY OUTSIDE INTERPRETATION Routine 04/02/[address] ABDOMEN AND PELVIS Routine 2023 8:21 AM SHEET CATCHER Cancer OSI CHEST Routine 03/23/2024 7:37 PM SHEET CATCHER Cancer OSI CT CHEST ABDOMEN PELVIS Routine 08/2023 7:37 PM SHEET CATCHER Cancer OSI CHEST Routine 03/23/2024 7:37 PM SHEET CATCHER Cancer OSI CT CHEST Routine 03/22/2024 8:21 AM SHEET CATCHER Cancer OSI CT ABDOMEN AND PELVIS Routine [...] AM CDT Renal mass Special Needs [id number]:Please collect and send tissue to pathology window with appropriate label. UT LAPAROSCOPY SURG PARTIAL NEPHRECTOMY 01/02/2024 6:08 AM CDT Renal mass Special Needs [id number]:Please collect and send tissue to pathology window [...] 09/16/2023 4:23 PM CDT Renal mass after 08/06/2023 Results * CT Chest Abdomen Pelvis with Contrast (07/15/2024 4:38 PM SHEET CATCHER) Anatomical Region Laterality Modality Abdomen, Pelvis, Chest Computed Tomography 07/15/2024 5:39 PM SHEET CATCHER Impressions 07/15/2024 9:45 PM SHEET CATCHER 1. Redemonstration of diffuse wall thickening of [...] and potentially actionable. Narrative 07/15/2024 9:45 PM SHEET CATCHER FULL RESULT: Examination: CT CHEST ABDOMEN PELVIS [...] CT ORDERABLES Final Result * Research Protocol [id number] (07/15/2024 10:01 AM SHEET CATCHER) Only the most recent of2 resultswithin the time period is included. Research Protocol Specimen Specimen Collected, Ready for Pickup. 07/15/2024 12:00 PM SHEET CATCHER [facility] Blood Venipuncture / Unknown 07/15/2024 10:01 AM SHEET CATCHER 07/15/2024 10:10 AM SHEET CATCHER Marianela Hutchinson MD RESEARCH LAB Z CODES Final Re sult [facility] Unless otherwise noted, all lab tests performed by: Division of Pathology and Laboratory Medicine [address] [place] [address] [place] [address] * (ABNORMAL) .CBC (07/15/2024 10:01 AM [facility]) Only the most recent of11 resultswithin the time period is included. Pathologist [facility] White Blood Cell 6.7 4.1 - 10.5 K/uL 07/15/2024 10:33 AM [facility] Red Blood Cell 4.91 4.30 - 6.04 M/uL 07/15/2024 10:33 AM [facility] Hemoglobin 12.4(L) 13.3 - 17.4 g/dL 07/15/2024 10:33 AM [facility] Hematocrit 37.8(L) 39.5 - 51.8 % 07/15/2024 10:33 AM [facility] Mean Cell Volume 77(L) 82 - 99 fL 07/15/2024 10:33 AM [facility] Mean Cell Hemoglobin 25.3(L) 26.6 - 33.2 pg 07/15/2024 10:33 AM [facility] Mean Cell Hemoglobin Concentration 32.8 31.1 - 35.2 g/dL 07/15/2024 10:33 AM [facility] RDW-SD 40.9 37.5 - 49.7 fL 07/15/2024 10:33 AM [facility] Red Cell Diameter Width 14.8 11.6 - 15.5 % 07/15/2024 10:33 AM [facility] Platelet 226 160 - 397 K/uL 07/15/2024 10:33 AM [facility] Mean Platelet Volume 9.6 9.1 - 12.6 fL 07/15/2024 10:33 AM [facility] INRBC 0.0 0.0 - 0.1 /100 WBC 07/15/2024 10:33 AM [facility] Comment: The INRBC (instrument NRBC) value reflects the enumeration of nucleated red blood cells contained in a 200uL sample of whole blood analyzed by the instrument. This value may differ from the NRBC value reported in a manual differential, which is based on a 100 cell differential. Neutrophil % 63.5 43.2 - 72.7 % 07/15/2024 10:33 AM [facility] Lymphocyte % 25.4 16.8 - 46.2 % 07/15/2024 10:33 AM [facility] Monocyte % 8.5 5.1 - 12.5 % 07/15/2024 10:33 AM [facility] Eosinophil % 2.1 0.4 - 6.3 % 07/15/2024 10:33 AM [facility] Basophil % 0.4 0.2 - 1.4 % 07/15/2024 10:33 AM [facility] IGRE % 0.1 0.1 - 1.5 % 07/15/2024 10:33 AM [facility] Comment:The IGRE% includes M etamyelocytes, Myelocytes and Promyelocytes. Neutrophil Abs 4.25 1.95 - 7.25 K/uL 07/15/2024 10:33 AM [facility] Lymphocyte Abs 1.70 1.01 - 3.24 K/uL 07/15/2024 10:33 AM [facility] Monocyte Abs 0.57 0.24 - 0.85 K/uL 07/15/2024 10:33 AM [facility] Eosinophil Abs 0.14 0.02 - 0.50 K/uL 07/15/2024 10:33 AM [facility] Basophil Abs 0.03 0.02 - 0.09 K/uL 07/15/2024 10:33 AM [facility] IG Abs 0.01 0.01 - 0.12 K/uL 07/15/2024 10:33 AM [facility] Blood Peripheral blood specimen / Unknown Venipuncture / Unknown 07/15/2024 10:01 AM [facility] 07/15/2024 10:09 AM [facility] Gillian Gomez PA-C LAB BLOOD ORDERABLES Final Result [facility] Unless otherwise noted, all lab tests performed by: Division of Pathology and Laboratory Medicine [address] [place] [id number] * (ABNORMAL) CMP (07/15/2024 10:01 AM [facility]) Only the most recent of10 resultswithin the time period is included. Bilirubin Total 0.4 0.0 - 1.2 mg/dL 07/15/2024 11:15 AM [facility] Comment:Indocyanine Green (I CG) may cause falsely elevated bilirubin results. Total and direct bilirubin must not be measured from samples containing indocyanine green. False elevation of total bilirubin can be seen in patients with IgG concentrations above 28 g/L. eGFR 98 >=60 mL/min/1. 73 sq. m 07/15/2024 11:15 AM [facility] Comment: The eGFRcr is calculated [...] 6.4 - 8.3 gm/dL 07/15/2024 11:15 AM [facility] Calcium Level Total 9.6 8.2 - 10.2 mg/dL 07/15/2024 11:15 AM [facility] Alkaline Phosphatase 117 40 - 129 U/L 07/15/2024 11:15 AM [facility] Albumin Level 4.4 3.5 - 5.2 gm/dL 07/15/2024 11:15 AM [facility] AST 22 <=40 U/L 07/15/2024 11:15 AM [facility] ALT 13 <=41 U/L 07/15/2024 11:15 AM [facility] Sodium Level 138 136 - 145 mmol/L 07/15/2024 11:15 AM [facility] Potassium Level 4.1 3.4 - 4.5 mmol/L 07/15/2024 11:15 AM [facility] Chloride 101 98 - 107 mmol/L 07/15/2024 11:15 AM [facility] CO2 27 22 - 29 mmol/L 07/15/2024 11:15 AM [facility] Anion Gap 10 4 - 14 mmol/L 07/15/2024 11:15 AM [facility] Creatinine 0.90 0.67 - 1.17 mg/dL 07/15/2024 11:15 AM [facility] BUN 10 6 - 23 mg/dL 07/15/2024 11:15 AM [facility] Glucose Level 181(H) 70 - 99 mg/dL 07/15/2024 11:15 AM [facility] Comment: Effective 12/14/15, the glucose reference intervals have been updated based on [place] [employer] guidelines (Standards of Medical Care [...] Unknown Venipuncture / Unknown 07/15/2024 10:01 AM SHEET CATCHER 07/15/2024 10:09 AM [facility] us Gillian Gomez PA-C LAB BLOOD ORDERABLES Final Result [facility] Unless otherwise noted, all lab tests performed by: Division of Pathology and Laboratory Medicine [address] [place] [id number] * Phosphorus Level (07/15/2024 10:01 AM [facility]) Only the most recent of6 resultswithin the time period is included. Phosphorus Level 2.7 2.5 - 4.5 mg/dL 07/15/2024 11:15 AM SHEET CATCHER [facility] Blood Peripheral blood specimen / Unknown Venipuncture / Unknown 07/15/2024 10:01 AM SHEET CATCHER 07/15/2024 10:09 AM SHEET CATCHER Gillian Gomez PA-C LAB BLOOD ORDERABLES Final Result Performing Organization Address City/[facility] Co de Phone Number [facility] Unless otherwise noted, all lab tests performed by: Division of Pathology and Laboratory Medicine [address] [place] [phone] * Magnesium Level (07/15/2024 10:01 AM SHEET CATCHER) Only the most recent of6 resultswithin the time period is included. Magnesium Level 1.8 1.6 - 2.6 mg/dL 07/15/2024 11:15 AM SHEET CATCHER [facility] Blood Peripheral blood specimen / Unknown Venipuncture / Unknown 07/15/2024 10:01 AM SHEET CATCHER 07/15/2024 10:09 AM SHEET CATCHER Gillian Gomez PA-C LAB BLOOD ORDERABLES Final Result Performing Organization Address City/[facility] de Phone Number [facility] Unless otherwise noted, all lab tests performed by: Division of Pathology and Laboratory Medicine [address] [place] [phone] * LDH (07/15/2024 10:01 AM SHEET CATCHER) Only the most recent of6 resultswithin the time period is included. LDH 202 135 - 225 U/L 07/15/2024 11:15 AM SHEET CATCHER [facility] Blood Peripheral blood specimen / Unknown Venipuncture / Unknown 07/15/2024 10:01 AM SHEET CATCHER 07/15/2024 10:09 AM SHEET CATCHER Narrative [facility] - 07/15/2024 11:15 AM SHEET CATCHER Results greater than 1651 U/L may not be reliable due to matrix effect with extended dilution as it exceeds the ict educator's recommended limit. Caution should be exercised when interpreting such values and done in conjunction with clinical context. us Gillian Gomez PA-C LAB BLOOD ORDERABLES Final Result Performing Organization Address City/[facility] Co de Phone Number [facility] Unless otherwise noted, all lab tests performed by: Division of Pathology and Laboratory Medicine [address] [place] [id number] * CEA (07/15/2024 10:01 AM SHEET CATCHER) Only the most recent of5 resultswithin the time period is included. Carcinoembryonic Antigen 3.0 <=3.8 ng/mL 07/15/2024 11:26 AM SHEET CATCHER [facility] Blood Peripheral blood specimen / Unknown Venipuncture / Unknown 07/15/2024 10:01 AM SHEET CATCHER 07/15/2024 10:09 AM SHEET CATCHER Narrative [facility] - 07/15/2024 11:26 AM SHEET CATCHER Reference Ranges (age 20-69 years): Non-smoker: <= 3.8 ng/mL Smoker: <= 5.5 ng/mL This test is measured by electrochemiluminescence immunoassay on Cornelius Nikki immunoassay analyzers. Results obtained in different methods are not interchangeable. us Gillian Gomez PA-C LAB BLOOD ORDERABLES Final Result Performing Organization Address [facility] de Phone Number [facility] Unless otherwise noted, all lab tests performed by: Division of Pathology and Laboratory Medicine [address] [place] [phone] * IHC Workup (07/07/2024 12:29 PM SHEET CATCHER) Tissue 07/07/2024 12:2 9 PM SHEET CATCHER 07/07/2024 12:29 PM SHEET CATCHER us Gillian Gomez PA-C [facility] BIOMARKER ORDERABLE S Final Result Performing Organization Address [facility] Co de Phone Number [facility] [address] [address], [place] * (ABNORMAL) POC Glucose Screen - Fingerstick (06/30/2024 1:23 PM SHEET CATCHER) Only the most recent of24 resultswithin the time period is included. Pathologist [facility] Glucose Screen 168(H) 70 - 99 mg/dL 06/30/2024 1:25 PM SHEET CATCHER [facility] POC Sample Type Capillary 06/30/2024 1:25 PM SHEET CATCHER [facility] Blood 06/30/2024 1:23 PM SHEET CATCHER 06/30/2024 1:25 PM SHEET CATCHER Narrative [facility] - 06/30/2024 1:25 PM SHEET CATCHER Capillary blood samples, e.g. obtained by fingerstick, [...] Division of Pathology and Laboratory Medicine [address] [place] [phone] * Pathology Biopsy Interpretation (06/30/2024 12:51 PM SHEET CATCHER) Only the most recent of3 resultswithin the time period is included. Pathologist [facility] Addendum 1 By immunohistochemistry, approximately 10% of the tumor cells show weakly to moderately cytoplasmic staining for claudin 18. By immunohistochemistry the combined positive score (CPS) for PD-L1 is <1. 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 07/10/2024 8:47 AM [facility] Gross Description A: Esophagus, lower esophageal ulcer at 37cm: Multiple soft light castillo tissue fragments, 0.7 x 0.6 x 0.1 cm in aggregate, entirely submitted in A1. ET 07/10/2024 8:47 AM [facility] Biomarker Block(s) Block for biomarker testing: A1 07/10/2024 8:47 AM [facility] Disclaimer "Some tests reported here may have been developed and performance characteristics determined by [facility] Pathology and Laboratory Medicine. These tests have not been specifically cleared or approved by the U.S. Food and Drug Administration. If applicable, controls were reviewed and showed appropriate reactivity." 07/10/2024 8:47 AM [facility] Tissue (Esophagus) 06/30/2024 12:51 PM SHEET CATCHER 06/30/2024 2:51 PM SHEET CATCHER us Brandon Galo MD LAB PATHOLOGY ORDERA CARMEL Edited [place] [id number], * (ABNORMAL) POC Chem 8 (06/30/2024 11:10 AM [facility]) Only the most recent of2 resultswithin the time period is included. POC Sodium 136(L) 138 - 146 mmol/L 06/30/2024 11:13 AM [facility] POC Potassium 4.5 3.5 - 4.9 mmol/L 06/30/2024 11:13 AM [facility] POC Chloride 100 98 - 109 mmol/L 06/30/2024 11:13 AM [facility] POC VTCO2 27 24 - 29 mmol/L 06/30/2024 11:13 AM [facility] POC Anion Gap 14 10 - 20 mmol/L 06/30/2024 11:13 AM [facility] POC BUN 30(H) 8 - 26 mg/dL 06/30/2024 11:13 AM [facility] POC Creatinine 1.1 0.6 - 1.3 mg/dL 06/30/2024 11:13 AM [facility] Comment:Medications, especia lly hydroxyurea or supplements, such as ascorbate, can interfere with test results causing a falsely and significantly higher result than expected. If a problem is suspected with a patient's result, a sample should be sent to the laboratory for confirmatory testing. POC I Glu 182(H) 70 - 99 mg/dL 06/30/2024 11:13 AM [facility] Comment:Medications, especia lly hydroxyurea or supplements, such as ascorbate, can interfere with test results causing a falsely and significantly higher result than expected. If a problem is suspected with a patient's result, a sample should be sent to the laboratory for confirmatory testing. POC Ionized Calcium 1.26 1.12 - 1.32 mmol/L 06/30/2024 11:13 AM [facility] POC Hct 39.0 38.0 - 51.0 % 06/30/2024 11:13 AM [facility] POC Hgb 13.3 12.0 - 17.0 gm/dL 06/30/2024 11:13 AM [facility] Comment:Hematocrit values fr om the iSTAT are [...] standard. POC Sample Type Venous 11:13 AM [facility] POC eGFR 77 >=60 mL/min/1.7 3 sq. m 06/30/2024 11:13 AM [facility] Comment: The eGFRcr is calculated with the [...] for CKD. Blood 06/30/2024 11:1 0 AM SHEET CATCHER 06/30/2024 11:13 AM SHEET CATCHER Narrative [facility] - 06/30/2024 11:13 AM SHEET CATCHER Method description: The i-STAT is an analyzer [...] DE VICE Final Result Performing Organization Address [facility] Co de Phone Number [facility] Unless otherwise noted, all lab tests performed by: Division of Pathology and Laboratory Medicine [address] [place] [phone] * EKG, 12-Lead (Scheduled) (06/29/2024) Only the most recent of3 resultswithin the time period is included. Mary Kay Santamaria APRN ECG ORDERABLES Final R esult Performing Organization Address City/[facility] Co de Phone Number [facility] IECG * PETCT F18 FDG (Fluorodeoxyglucose) with contrast (06/20/2024 12:42 PM SHEET CATCHER) Anatomical Region Laterality Modality Whole Body Positron Emissio n Tomography (PET) 06/20/2024 3:10 PM SHEET CATCHER Impressions 06/20/2024 4:38 PM SHEET CATCHER Biopsy-proven malignancy in the region of the [...] and potentially actionable. Narrative 06/20/2024 4:38 PM SHEET CATCHER FULL RESULT: Examination: 18F-FDG-PET/CT with contrast, 06/20/2024 [...] * Transferrin with TIBC (06/01/2024 11:10 AM SHEET CATCHER) Transferrin 211 200 - 360 mg/dL 06/01/2024 12:15 PM SHEET CATCHER [facility] Total Iron Binding Capacity 295 250 - 450 mcg/dL 06/01/2024 12:15 PM SHEET CATCHER [facility] Blood Peripheral blood specimen / Unknown Venipuncture / Unknown 06/01/2024 11:10 AM SHEET CATCHER 06/01/2024 11:23 AM SHEET CATCHER us Marianela Hutchinson MD LAB BLOOD ORDERABLES Final Re sult [facility] Unless otherwise noted, all lab tests performed by: Division of Pathology and Laboratory Medicine [address] [place] [address] [place] [address] * (ABNORMAL) Iron Level (06/01/2024 11:10 AM SHEET CATCHER) Iron Level 38(L) 59 - 158 mcg/dL 06/01/2024 12:15 PM SHEET CATCHER [facility] Is patient fasting? No 06/01/2024 12:15 PM SHEET CATCHER [facility] Blood Peripheral blood specimen / Unknown Venipuncture / Unknown 06/01/2024 11:10 AM SHEET CATCHER 06/01/2024 11:23 AM SHEET CATCHER Marianela Hutchinson MD LAB BLOOD ORDERABLES Final Re sult Performing Organization Address [facility] de Phone Number [facility] Unless otherwise noted, all lab tests performed by: Division of Pathology and Laboratory Medicine [address] [place] [address] Unless otherwise noted, all lab tests performed by: Division of Pathology and Laboratory Medicine [address] [place] [address] * Ferritin Level (06/01/2024 11:10 AM SHEET CATCHER) Ferritin Level 59 30 - 400 ng/mL 06/01/2024 12:15 PM SHEET CATCHER [facility] Blood Peripheral blood specimen / Unknown Venipuncture / Unknown 06/01/2024 11:10 AM SHEET CATCHER 06/01/2024 11:23 AM SHEET CATCHER Narrative [facility] - 06/01/2024 12:15 PM SHEET CATCHER Reference range established for age 20 - 60 years Marianela Hutchinson MD LAB BLOOD ORDERABLES Final Re sult Performing Organization Address City/[facility] Co de Phone Number [facility] Unless otherwise noted, all lab tests performed by: Division of Pathology and Laboratory Medicine [address] [place] [phone] * Tip Verification Central Vascular Access Device (04/15/2024 3:50 PM SHEET CATCHER) Narrative John Fong MD - 04/15/2024 3:50 PM SHEET CATCHER John Fong MD 04/15/2024 3:50 PM Central Vascular Access Device Tip Verification Performed by: John Fong MD Authorized by: John Fong MD [employer] Date device placed: 04/15/2024 Device placement location: [facility] Catheter Type: Implanted venous port Catheter lumen: Single lumen Vein location: Internal jugular vein Laterality: Right Tip in good position and cleared for infusion us John Fong MD IV THERAPY ORDERABLES Final Re sult * XR Chest 1 View Portable (04/15/2024 2:45 PM SHEET CATCHER) Anatomical Region Laterality Modality Chest Digital Radiogra phy 04/15/2024 2:50 PM SHEET CATCHER Impressions 04/15/2024 2:53 PM SHEET CATCHER 1. Right infusion port catheter terminates over [...] and potentially actionable. Narrative 04/15/2024 2:53 PM SHEET CATCHER FULL RESULT: Examination: XR CHEST 1 VW [...] IMAGING ORDERAB LES Final Result * Cytology Non-Upholstery Auto Trimmer Interpretation (04/15/2024 12:33 PM SHEET CATCHER) Gross Description 4 Pap Stain Slides 750 ml. clear yellow fluid Specimen concentrated by cytocentrifugation technique 4 4:07 PM SHEET CATCHER [facility] Major Classification [facility]/benign 4 4:07 PM SHEET CATCHER [facility] Diagnosis Peritoneal washing: No metastatic carcinoma identified Reactive mesothelial cells and histiocytes 4 4:07 PM SHEET CATCHER [facility] Retained/Biomark er Testing SR:4S 4 4:07 PM SHEET CATCHER [facility] Informational Points Some tests reported here may have been developed and performance characteristics determined by [facility] Pathology and Laboratory Medicine. These tests have not been specifically cleared or approved by the U.S. Food and Drug Administration. 4 4:07 PM SHEET CATCHER [facility] Washing (Peritoneal Washing) 04/15/2024 12:33 PM SHEET CATCHER 04/15/2024 1:10 PM SHEET CATCHER John Fong MD LAB CYTOLOGY ORDERABLES Final Result Performing Organization Address City/[facility]/ZIP Co de Phone Number [address] [address], [place] * Pathology Surgical Interpretation (04/15/2024 12:13 PM SHEET CATCHER) Only the most recent of2 resultswithin the time period is included. Submitted Clinical History Adenocarcinoma of stomach [C16.9] 04/20/2024 8:13 PM SHEET CATCHER [facility] Diagnosis A. Falciform ligament, resection: Fibroadipose tissue, no tumor present 04/20/2024 8:13 PM SHEET CATCHER [facility] Gross Description A: Falciform ligament, falciorm ligament biopsy....or 16: Consists of a fragment of castillo-yellow, lobulated fat (0.8 x 0.6 x 0.5 cm) entirely submitted in cassette A1. EF 04/20/2024 8:13 PM SHEET CATCHER [facility] Disclaimer "Some tests reported here may have been developed and performance characteristics determined by [facility] Pathology and Laboratory Medicine. These tests have not been specifically cleared or approved by the U.S. Food and Drug Administration. If applicable, controls were reviewed and showed appropriate reactivity." 04/20/2024 8:13 PM SHEET CATCHER [facility] Tissue (Falciform Ligament) 04/15/2024 12:13 PM SHEET CATCHER 04/15/2024 1:18 PM SHEET CATCHER us John Fong MD LAB PATHOLOGY ORDERABLES Final Result [address] [address], [place] * [place] Central Venous Place Exchange (04/15/2024 11:40 AM SHEET CATCHER) Narrative Systemgenerated, Documentation - 04/15/2024 11:40 AM SHEET CATCHER This procedure requires no interpretation from the radiologist. us John Fong MD IMG FLUOROSCOPY ORDERABLES Fin al Result * CT Abdomen Pelvis with IV Contrast (04/12/2024 11:18 AM SHEET CATCHER) Anatomical Region Laterality Modality Abdomen, Pelvis Computed Tomogra phy 04/12/2024 11:5 2 AM SHEET CATCHER Impressions 04/12/2024 12:11 PM SHEET CATCHER Wall thickening and slight mucosal irregularity of [...] and potentially actionable. Narrative 04/12/2024 12:11 PM SHEET CATCHER FULL RESULT: Examination: CT ABDOMEN PELVIS W [...] * Fractionated Bilirubin (04/12/2024 9:04 AM [facility]) Pathologist [facility] Bilirubin Direct 04/12/20 9:47 AM [facility] Comment: Direct and indirect bilirubin will not be reported when Total bilirubin result is <0.3 mg/dL Indocyanine Green (ICG) may cause falsely elevated bilirubin results. Total and direct bilirubin must not be measured from samples containing indocyanine green. Bilirubin Indirect 2023 9:47 AM [facility] Comment:Direct and indirect bilirubin will not be reported when Total bilirubin result is <0.3 mg/dL Bilirubin Total <0.3 0.0 - 1.2 mg/dL 04/12/2024 9:47 AM [facility] Comment: Direct and indirect bilirubin will not [...] Unknown Venipuncture / Unknown 04/12/2024 9:04 AM SHEET CATCHER 04/12/2024 9:08 AM [facility] Nghia Zhu MD LAB BLOOD ORDERABLES Final Resu lt [facility] Unless otherwise noted, all lab tests performed by: Division of Pathology and Laboratory Medicine [address] [place] [phone] * (ABNORMAL) Lipase (04/12/2024 9:04 AM SHEET CATCHER) Lipase Level 311(H) 13 - 60 U/L 04/12/2024 10:09 AM SHEET CATCHER [facility] Blood Peripheral blood specimen / Unknown Venipuncture / Unknown 04/12/2024 9:04 AM SHEET CATCHER 04/12/2024 9:08 AM SHEET CATCHER Narrative [facility] - 04/12/2024 10:09 AM SHEET CATCHER Reference range established based on adult population us Nghia Zhu MD LAB BLOOD ORDERABLES Final Resu lt [facility] Unless otherwise noted, all lab tests performed by: Division of Pathology and Laboratory Medicine [address] [place] [id number] * (ABNORMAL) Amylase (04/12/2024 9:04 AM SHEET CATCHER) Amylase Level 171(H) 28 - 100 U/L 04/12/2024 9:47 AM SHEET CATCHER [facility] Blood Peripheral blood specimen / Unknown Venipuncture / Unknown 04/12/2024 9:04 AM SHEET CATCHER 04/12/2024 9:08 AM SHEET CATCHER us Nghia Zhu MD LAB BLOOD ORDERABLES Final Resu lt [facility] Unless otherwise noted, all lab tests performed by: Division of Pathology and Laboratory Medicine [address] [place] [id number] * TSH (04/09/2024 11:09 AM SHEET CATCHER) Only the most recent of2 resultswithin the time period is included. Thyroid Stimulating Hormone 1.53 0.27 - 4.20 mcunit/mL 04/09/2024 12:23 PM SHEET CATCHER [facility] Blood Peripheral blood specimen / Unknown Venipuncture / Unknown 04/09/2024 11:09 AM SHEET CATCHER 04/09/2024 11:19 AM SHEET CATCHER Ceci Nicholson MD LAB BLOOD ORDERABLES Final Resu lt Performing Organization Address [facility] [facility] de Phone Number [facility] Unless otherwise noted, all lab tests performed by: Division of Pathology and Laboratory Medicine [address] [place] [phone] * (ABNORMAL) Hemoglobin A1c (04/09/2024 11:09 AM SHEET CATCHER) Only the most recent of3 resultswithin the time period is included. Hemoglobin A1c 7.0(H) 4.3 - 5.6 % 04/09/2024 12:14 PM SHEET CATCHER [facility] Blood Peripheral blood specimen / Unknown Venipuncture / Unknown 04/09/2024 11:09 AM SHEET CATCHER 04/09/2024 11:19 AM SHEET CATCHER Narrative [facility] - 04/09/2024 12:14 PM SHEET CATCHER HbA1c values >=6.5% are diagnostic of diabetes mellitus. Diagnosis should be confirmed by repeat testing. Therapeutic Action suggested: >8.0% HbA1c; Goal of therapy: <7.0% HbA1c us Ceci Nicholson MD LAB BLOOD ORDERABLES Final Resu lt Performing Organization Address [facility] de Phone Number [facility] Unless otherwise noted, all lab tests performed by: Division of Pathology and Laboratory Medicine [address] [place] [phone] * Pathology Outside Interpretation (04/02/2024) Materials Received Accession#, Stained, Block, Unstained Collected Received A. [id number], 20 SS, 0 BLOCKS, 0 USS 04/02/2024 04/22/2024 04/22/2024 5:36 PM SHEET CATCHER [facility] Diagnosis Outside ([id number], 20 SS, 0 BLOCKS, 0 USS, collected [...] FEATURES. See comment. FY/FMK 04/22/2024 5:36 PM [facility] [employer] Comment Part A. There is no evidence [...] immunohistochemistry: Negative (Score: 0) 04/22/2024 5:36 PM [facility] [employer] Biomarker Block(s) Block for biomarker testing: C1 Normal block: N/A 04/22/2024 5:36 PM [facility] [employer] Disclaimer "Some tests reported here may have been developed and performance characteristics determined by [facility] Pathology and Laboratory Medicine. These tests have not been specifically cleared or approved by the U.S. Food and Drug Administration. If applicable, controls were reviewed and showed appropriate reactivity." 04/22/2024 5:36 PM [facility] Tissue 04/02/2024 04/22/2024 6:4 0 AM SHEET CATCHER us Sybil Edmonds MD LAB PATHOLOGY ORDERABLES Final R esult [facility] [address] [place] [address], [place] * OSI CT Abdomen and Pelvis (04/01/2024 8:21 AM SHEET CATCHER) Only the most recent of2 resultswithin the time period is included. Narrative Systemgenerated, Documentation - 04/27/2024 8:22 AM SHEET CATCHER Study acquired at another institution. For comparison only. No [facility] originated interpretation requested or available. [facility] Regan Zhu DO [facility] [place]IDE IMAGE ORDERAB LES Final Result * OSI CT CHEST ABDOMEN PELVIS (03/23/2024 7:37 PM SHEET CATCHER) Narrative Systemgenerated, Documentation - 04/09/2024 7:37 PM SHEET CATCHER Study acquired at another institution. For comparison only. No [facility] originated interpretation requested or available. Margoth Souza MD IM OUTSIDE IMAGE ORDERABLES Fin al Result * OSI Chest (03/23/2024 7:37 PM SHEET CATCHER) Only the most recent of4 resultswithin the time period is included. Narrative Systemgenerated, Documentation - 04/09/2024 7:37 PM SHEET CATCHER Study acquired at another institution. For comparison only. No [facility] originated interpretation requested or available. Margoth Souza MD [facility] [place]IDE IMAGE ORDERABLES Fin al Result * OSI CT Chest (03/22/2024 8:21 AM SHEET CATCHER) Narrative Systemgenerated, Documentation - 04/27/2024 8:21 AM SHEET CATCHER Study acquired at another institution. For comparison only. No [facility] originated interpretation requested or available. [facility] Regan Zhu DO [facility] [place]AGE ORDERAB LES Final Result * (ABNORMAL) Basic Metabolic Panel- Total Calcium (01/03/2024 2:59 PM CDT) Only the most recent of7 resultswithin the time period is included. eGFR 71 >=60 mL/min/1. 73 sq. m 01/03/2024 3:44 PM CDT [facility] Comment: The eGFRcr is calculated with the [...] reference intervals have been updated based on [place] Diabetes Association guidelines (Standards of Medical Care [...] BLOOD ORDERABLES Final Result Performing Organization Address [facility] Co de Phone Number [facility] Unless otherwise noted, all lab tests performed by: Division of Pathology and Laboratory Medicine [address] [place] [phone] * Zinc Transporter 8 Ab (01/03/2024 4:22 AM CDT) Pathologist [facility] Zinc T8 AB <15.0 <15.0 U/mL 01/15/2024 11:18 AM CDT [facility] TIFF Comment: ADDITIONAL INFORMATION This test has been modified from the ict educator's instructions. Its performance characteristics were determined by [facility] in a manner consistent with CLIA requirements. This test has not been cleared or approved by the U.S. Food and Drug Administration. Test Performed by: [place] [address] Salesperson [employer]: Mary Jane Topete Ph.D.; CLIA# [id number] Blood Peripheral blood specimen / Unknown Venipuncture / Unknown 01/03/2024 4:22 AM CDT 01/03/2024 4:55 AM CDT Alicia Mcmanus APRN LAB BLOOD ORDERABLES Final Result Performing Organization Address [facility] Co de Phone Number [facility] JASONANAIS * Islet Antigen 2 (IA-2) Antibody (01/03/2024 4:22 AM CDT) IA-2 Antibody 0.00 <=0.02 nmol/L 01/07/2024 12:20 AM CDT [facility] TIFF Comment: ADDITIONAL INFORMATION This test was developed and its performance characteristics determined by [facility] in a manner consistent with CLIA requirements. This test has not been cleared or approved by the U.S. Food and Drug Administration. Test Performed by: [facility] [place] [address] Salesperson [employer]: Mary Jane Topete Ph.D.; CLIA# [id number] Blood Peripheral blood specimen / Unknown Venipuncture / Unknown 01/03/2024 4:22 AM CDT 01/03/2024 4:55 AM CDT Alicia Mcmanus APRN LAB BLOOD ORDERABLES Final Result [facility] * GREG Ab Assay (01/03/2024 4:22 AM CDT) GAD65 [facility] 0.00 <=0.02 nmol/L 01/07/2024 12:01 AM CDT [facility] Comment: ADDITIONAL INFORMATION This test was developed and its performance characteristics determined by [facility] in a manner consistent with CLIA requirements. This test has not been cleared or approved by the U.S. Food and Drug Administration. Test Performed by: [facility] - [address] [address] Salesperson [employer]: Mary Jane Topete Ph.D.; CLIA# [id number] Blood Peripheral blood specimen / Unknown Venipuncture / Unknown 01/03/2024 4:22 AM CDT 01/03/2024 4:55 AM CDT Alicia Mcmanus APRN LAB BLOOD ORDERABLES Final Result [facility] * Insulin Ab (01/03/2024 4:22 AM CDT) Pathologist [facility] Insulin Ab-Barton 0.00 0.00 - 0.02 nmol/L 01/06/2024 5:14 PM CDT [facility] Comment: ADDITIONAL INFORMATION This test was developed and its performance characteristics determined by [facility] in a manner consistent with CLIA requirements. This test has not been cleared or approved by the U.S. Food and Drug Administration. Test Performed by: [address] [address] Salesperson [employer]: Mary Jane Topete Ph.D.; CLIA# [id number] Blood Peripheral blood specimen / Unknown Venipuncture / Unknown 01/03/2024 4:22 AM CDT 01/03/2024 4:55 AM CDT Alicia Mcmanus APRN LAB BLOOD ORDERABLES Final Result Performing Organization Address [facility] Co de Phone Number [facility] TIFF * C Peptide (01/03/2024 4:22 AM CDT) [facility] C-Peptide 2.12 1.10 - 4.40 ng/mL 01/03/2024 5:48 AM CDT [facility] Blood Peripheral blood specimen / Unknown Venipuncture / Unknown 01/03/2024 4:22 AM CDT 01/03/2024 4:55 AM CDT Alicia Mcmanus APRN LAB BLOOD ORDERABLES Final Result Performing Organization Address City/[facility]/ZIP Co de Phone Number [facility] Unless otherwise noted, all lab tests performed by: Division of Pathology and Laboratory Medicine [address] [place] [address] [place] [address] * (ABNORMAL) Hemogram (01/02/2024 7:20 PM CDT) [facility] White Blood Cell 13.8(H) 4.1 - 10.5 [...] ORDERABLES Final R esult Performing Organization Address City/[facility]/ZIP Co de Phone Number [facility] Unless otherwise noted, all lab tests performed by: Division of Pathology and Laboratory Medicine [address] [place] [phone] * (ABNORMAL) Beta Hydroxy Quant (01/02/2024 7:20 PM CDT) Only the most recent of2 resultswithin the time period is included. [facility] Beta-Hydroxybuty rate 0.85(H) 0.02 - 0.27 mmol/L [...] BLOOD ORDERABLES Final Result Performing Organization Address City/[facility] Co de Phone Number [facility] Unless otherwise noted, all lab tests performed by: Division of Pathology and Laboratory Medicine [address] [place] [phone] * (ABNORMAL) ABG+ (ABG, Na, K, Cl, Glu, Hgb, Hct, Lactate, Ion Ca) (01/02/2024 10:38 AM CDT) Only the most recent of2 resultswithin the time period is included. [facility] Sodium Arterial 140 136 - 146 mmol/L 01/02/2024 10:44 AM CDT [facility] Potassium Arterial 3.7 3.4 - 4.5 mmol/L 01/02/2024 10:44 AM CDT [facility] Chloride Arterial 103 98 - 106 mmol/L 01/02/2024 10:44 AM [facility] Glucose Arterial 270(H) 70 - 105 mg/dL 01/02/2024 10:44 AM [facility] Hgb Art 12.9(L) 13.5 - 17.5 g/dL 01/02/2024 10:44 AM [facility] Hematocrit Arterial 40(L) 42 - 52 % 01/02/2024 10:44 AM [facility] Lactate Arterial 1.0(H) 0.4 - 0.8 mmol/L 01/02/2024 10:44 AM [facility] Calcium Ionized Arterial 1.14(L) 1.15 - 1.29 mmol/L 01/02/2024 10:44 AM [facility] pH Arterial 7.35 7.35 - 7.45 01/02/2024 10:44 AM [facility] P CO2 Arterial 42.9 35.0 - 48.0 mmHg 01/02/2024 10:44 AM [facility] P O2 Arterial 164(H) 83 - 108 mmHg 01/02/2024 10:44 AM [facility] Bicarbonate Arterial 24 21 - 28 mmol/L 01/02/2024 10:44 AM [facility] WB Anion Gap 13 7 - 16 mmol/L 01/02/2024 10:44 AM [facility] Base Excess Arterial -2 -2 - 3 mmol/L 01/02/2024 10:44 AM [facility] Oxygen Saturation Arterial 99 95 - 99 % 01/02/2024 10:44 AM [facility] Oxygen FLOW Rate/ FiO2 01/02/2024 10:44 AM [facility] O2 Therapy 01/02/2024 10:44 AM [facility] Art Kirill Test Not Applicable (Arterial Line Draw) 01/02/2024 10:44 AM [facility] Blood Arterial blood specimen / Unknown Arterial Line / Unknown 01/02/2024 10:38 AM CDT 01/02/2024 10:41 AM [facility] - 01/02/2024 10:44 AM CDT [...] Division of Pathology and Laboratory Medicine [address] [place] [phone] * Intraoperative Ultrasound - For Image Storage [...] [facility] - TRANSFUSION SERVICES [facility] [address] [place] [address] * Preop Updated Expiration (12/23/2023 8:51 AM [...] [facility] Trans[facility] [address] [place] [address] * (ABNORMAL) Urinalysis with Reflex Culture (12/23/2023 8:51 AM CDT) Only the most recent of2 resultswithin the time period is included. Urine Appearance Clear Clear 12/23/19 9:33 AM CDT [facility] Urine Color Straw Colorless, Straw, Yellow, Dark Yellow, Straw-Yellow 12/23/2023 9:33 AM CDT [facility] Urine Specific [place] 1.032 1.003 - 1.035 12/23/2023 9:33 AM [...] 8:51 AM CDT 12/23/2023 9:10 AM CDT [facility] - 12/23/2023 9:33 AM CDT Some reporting parameters within the Urinalysis test have changed due to the implementation of new instrumentation in the [facility], allowing greater sensitivity of measurement. Urinalysis results reported by the [facility] using existing instrumentation, as well as Urinalysis testing performed manually or by back-up methodology at the main campus, will remain relatively unchanged. New reporting parameters and units will now be reported for all sulaes. Margoth Souza MD URINE ORDERABLES Final Result [facility] Unless otherwise noted, all lab tests performed by: Division of Pathology and Laboratory Medicine [address] [place] [phone] * 30-Day Pre-Op Type and Screen (12/23/2023 [...] TEST ORDERABLES Final Result Performing Organization Address City/[facility] Co de Phone Number [facility] - TRANSFUSION SERVICES [facility] Transfusion Services [address] [place] [address] [address] [place] [address] * TMP Interpretation Exception PreOp Expiration (12/23/2023 [...] [facility] Transfusion [facility] [address] [place] [address] * ACTH (12/09/2023 9:45 AM CDT) Only the most recent of2 resultswithin the time period is included. [facility] ACTH 22 7 - 63 pg/mL [...] with extended dilution as it exceeds the ict educator's recommended limit. ACTH reference intervals are established [...] Division of Pathology and Laboratory Medicine [address] [place] [address] * DHEA Sulfate (12/09/2023 9:45 AM CDT) [facility] [place] [address] 20 - 299 mcg/dL 12/10/2023 12:10 PM CDT [facility] Comment: Test Performed by: [facility] [address] [place] [address] Salesperson [employer]: Mary Jane Topete Ph.D.; CLIA# [id number] Blood Peripheral blood specimen / Unknown Venipuncture / Unknown 12/09/2023 9:45 AM CDT 12/09/2023 9:56 AM CDT Veronica Del Castillo [facility] LAB BLOOD ORDERABLES Final Result Performing Organization Address City/[facility]/ZIP Co de Phone Number DINA MATTHEW * Cortisol, Total (12/09/2023 9:45 AM CDT) Only the most recent of4 resultswithin the time period is included. Cortisol 11.39 4.82 - 19.50 mcg/dL 12/09/2023 11:00 AM CDT [facility] Blood Peripheral blood specimen / Unknown Venipuncture / Unknown 12/09/2023 9:45 AM CDT 12/09/2023 9:55 AM CDT Narrative [facility] - 12/09/2023 11:00 AM CDT Cortisol reference [...] pm): 2.47 - 11.9 mcg/dL Veronica KayEvonne [facility] LAB BLOOD ORDERABLES Final Result [facility] Unless otherwise noted, all lab tests performed by: Division of Pathology and Laboratory Medicine [address] [place] [address] [place] [address] * IR CT GUIDED BIOPSY RENAL (10/03/2023 10:27 AM CDT) Anatomical Region Laterality Modality Abdomen/Pelvis, Organ (liver/spleen/kidney) Computed Tomography Narrative 10/04/2023 9:03 AM CDT Table formatting from the original result was not included. Date of Procedure: 5/16/24 Attending Physician: Kmuar Comer MD Take Out Waiter/Waitress: None Pre Procedure Diagnosis: Renal mass Post [...] - 14.5 second(s) 10/03/2023 9:57 AM T [facility] International Normalization Ratio 0.98 0.87 - 1.12 10/03/2023 9:57 AM T [facility] Blood Peripheral blood specimen / Unknown Venipuncture / Unknown 10/03/2023 9:27 AM CDT 10/03/2023 9:28 AM CDT us Abilio Ng PA-C LAB BLOOD ORDERABLES Final Result [facility] [address] [place] [address] * Type and Screen (10/03/2023 9:27 AM [...] [facility] Transfusion Services [address] [place] [address] * X-ray Chest 2 Views (09/19/2023 9:24 [...] 0.43 <0.90 nmol/L 09/19/2023 2:59 PM CDT [facility] Metanephr Free-Maxwell <0.20 <0.50 nmol/L 09/19/2023 2:59 PM CDT [facility] Comment: ADDITIONAL INFORMATION This test was developed and its performance characteristics determined by [facility] in a manner consistent with CLIA requirements. This test has not been cleared or approved by the U.S. Food and Drug Administration. Test Performed by: [facility] [address] [place] [id number] Salesperson [employer]: Scot Skelton M.D. Ph.D.; CLIA# [id number] Blood Peripheral blood specimen / Unknown Venipuncture / Unknown 09/16/2023 4:24 PM CDT 09/16/2023 4:41 PM CDT Shazia Arriaza MD LAB BLOOD ORDERABLES Final Result Performing Organization Address City/[facility]/ZIP Co de Phone Number [facility] TIFF * Hepatitis C Virus Antibody (09/16/2023 4:24 PM CDT) [facility] HCVAb. Non Reactive Non Reactive 09/17/2023 [...] Division of Pathology and Laboratory Medicine [address] [place] [phone] * Aldosterone Level (09/16/2023 4:24 PM CDT) [facility] Aldosterone-Barton 8.1 <=21 ng/dL 09/20/2023 1:02 AM CDT [facility] Comment: ADDITIONAL INFORMATION Reference range for patients 11 years and older is based on upright A.M. collection from subjects without sodium restrictions. This test was developed and its performance characteristics determined by [facility] in a manner consistent with CLIA requirements. This test has not been cleared or approved by the U.S. Food and Drug Administration. Test Performed by: [facility] [address] [place] [address] Salesperson [employer]: Scot Skelton M.D. Ph.D.; CLIA# [id number] Blood Peripheral blood specimen / Unknown Venipuncture / Unknown 09/16/2023 4:24 PM CDT 09/16/2023 4:41 PM CDT Shazia Arriaza MD LAB BLOOD ORDERABLES Final Result [facility] * Renin Activity (09/16/2023 4:24 PM CDT) [facility] Renin Activity-Barton 4.3 ng/mL/h 09/19 3:42 PM CDT [facility] Comment: REFERENCE VALUE (Peripheral vein specimen) Na-deplete, upright: Mean: 5.9 Range: 2.9-10.8 Na-replete, upright: Mean: 1.0 Range: < or =0.6-3.0 ADDITIONAL INFORMATION Testing performed by Liquid Chromatography-Tandem Mass Spectrometry (LC-MS/MS). This test was developed and its performance characteristics determined by [facility] in a manner consistent with CLIA requirements. This test has not been cleared or approved by the U.S. Food and Drug Administration. Test Performed by: [facility] [address] [place] [address] Salesperson [employer]: Scot Skelton M.D. Ph.D.; CLIA# [id number] Blood Peripheral blood specimen / Unknown Venipuncture / Unknown 09/16/2023 4:24 PM CDT 09/16/2023 4:41 PM CDT us Shazia Arriaza MD LAB BLOOD ORDERABLES Final Result [facility] * Urine Culture (09/16/2023 4:24 PM CDT) Pathologist [facility] Urine Culture Normal site mirna present. Generally of low significance. Correlate with clinical data and culture history. 09/18/2023 8:31 AM CDT [facility] Urine Voided urine specimen / Unknown Non-blood Collection / Unknown 09/16/2023 4:24 PM CDT 09/16/2023 4:41 PM CDT Result Awa Arriaza MD MICROBIOLOGY - GENERAL ORD ERABLES Final Result Performing Organization Address City/[facility]/ZIP Co de Phone Number [facility] Unless otherwise noted, all lab tests performed by: Division of Pathology and Laboratory Medicine [address] [place] [phone] * T4 (09/16/2023 4:24 PM CDT) Thyroxine [...] Division of Pathology and Laboratory Medicine [address] [place] [phone] * Confirm ABORh (09/16/2023 4:23 PM CDT) ABORh Confirm O POS 09/16/2023 4:15 PM CDT [facility] Blood Peripheral blood specimen / Unknown Venipuncture / Unknown 09/16/2023 4:23 PM CDT 09/16/2023 4:41 PM CDT us Shazia Arriaza MD BLOOD BANK TEST ORDERABLES Final Result [facility] Transfusion [facility] [address] [place] [address] after 08/06/2023 Insurance MEDICARE PART A AND B MEDICARE PART A AND B Advance Directives * Full Code (Latest Code Status on File) Date Activated Date Inactivated Comments 04/12/2024 1:24 PM 04/12/2024 5:43 PM * Full Code Date Activated Date Inactivated Comments 01/02/2024 1:48 PM 01/03/2024 7:17 PM Care Teams Domestic Violence Counselor Relationship Specialty Start Date End Date Margoth Souza MD [address] [place] [phone] [email or web address] PCP - General Urology 07/30/23 04/14/24 Eagle Zhu DO [address] [place] [phone] [email or web address] PCP - External Primary Care Provider Family Practice 04/08/24 Marianela Hutchinson MD [address] [place] [phone] [email or web address] PCP - General Gastrointestinal Medical Oncology 05/04/24 Mary Jane Cassidy MD [address] [place] [phone] [email or web address] Consulting Physician Endocrinology 12/09/23 Barry He MD [address] [place] [phone] [email or web address] Consulting Physician Internal Medicine 12/23/23 Patience Hunt MD [address] [place] [phone] [email or web address] Consulting Physician Endocrinology 12/31/23 Marianela Hutchinson MD [address] [place] [phone] [email or web address] Consulting Physician Gastrointestinal Medical Oncology 04/13/24 Margoth Souza MD [address] [place] [phone] [email or web address] Consulting Physician Urology 04/15/24 Ceci Nicholson MD [address] [place] [phone] [email or web address] Consulting Physician Internal Medicine 04/09/24 Sigifredo Davenport MD [address] [place] [phone] [email or web address] Consulting Physician Internal Medicine 06/29/24
[2024-08-05] MEDS ORDERED: ONDANSETRON 4 MG/2 ML VIAL ONE ×2 (15:20→18:08)
[2024-08-05] MEDS ORDERED: MORPHINE 4 MG/ML SYR ONE (15:21)
[2024-08-05 15:57] LABS: Absolute Basophils 0.1 K/uL (0-0.5); Absolute Eosinophils 0.1 K/uL (0-0.5); Absolute Lymphocytes (CBC) 1.4 K/uL (0.7-4.9); Absolute Monocytes 0.5 K/uL (0.1-1.3); Absolute Neutrophil 7.8 K/uL (1.8-8.0); Basophils % 0.8 % (0-1.3); Hematocrit 39.9 % (39.6-49.0); Hemoglobin 13.9 g/dL (13.6-17.9); Lymphocytes % 13.7 % (15.3-44.8); MCH 26.7 pg (27.0-35.0); MCV 76.3 fL (80-100); MPV 7.3 fL (7.6-11.3); Monocytes % 4.9 % (3.3-12.3); Neutrophils % 79.6 % (41.7-73.7); Nucleated Red Blood Cells % 0.1 % (0-0); Platelets 456 thou/uL (152-406); RBC Red Blood Cell Count 5.23 M/uL (4.33-5.43); Red Cell Distribution Width 15.7 % (12.1-15.2)
[2024-08-05 16:10] LABS: Albumin 3.8 g/dL (3.4-5.0); Albumin/Globulin Ratio 0.7 (1.1-1.8); Anion Gap 14.3 mEq/L (5.0-15.0); Bilirubin Total 0.4 mg/dL (0.2-1.0); Globulin 5.4 g/dL (2.3-3.5); Potassium 4.3 mEq/L (3.5-5.1); Protein, Total 9.2 g/dL (6.4-8.2)
--- NOTE | 2024-08-05 16:29 | EDPHYS ---
Physician Documentation [facility] Name: Zeke Mackay Sr Age: 59 yrs Sex: Male : 1965 Arrival Date: 08/05/2024 Time: 13:47 Bed 16 Private MD: ED Physician Jag Horvath HPI: 08/05 14:50 This 59 yrs old Male presents to ER via Ambulatory with complaints of Abdominal Pain, sp3 Nausea/Vomiting. 14:50 59-year-old male with history of diabetes, cervical stenosis, prior DKA, hypertension, sp3 ongoing gastric cancer which is being evaluated at [facility], history of CAD with CABG, now presents to the ED for recurrent and chronic abdominal pain and vomiting. Patient was seen 4 days ago and had a negative CT scan of the abdomen pelvis showing no significant change from prior and a very mild elevation in his lipase level at 331. Currently patient is having abdominal pain and vomiting without blood or mucus. Negative ROS otherwise.. 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 - Infectious Disease History:: Denies. - Social history:: Smoking status: unknown. ROS: 14:51 Constitutional: Negative for fever, chills, and weight loss, Eyes: Negative for injury, sp3 pain, redness, and discharge, ENT: Negative for injury, pain, and discharge, Neck: Negative for injury, pain, and swelling, Cardiovascular: Negative for chest pain, palpitations, and edema, Respiratory: Negative for shortness of breath, cough, wheezing, and pleuritic chest pain, Back: Negative for injury and pain, : Negative for injury, bleeding, discharge, and swelling, MS/Extremity: Negative for injury and deformity, Skin: Negative for injury, rash, and discoloration, Neuro: Negative for headache, weakness, numbness, tingling, and seizure, Psych: Negative for depression, anxiety, suicide ideation, homicidal ideation, and hallucinations, Allergy/Immunology: Negative for hives, rash, and allergies, Endocrine: Negative for neck swelling, polydipsia, polyuria, polyphagia, and marked weight changes, 14:51 All other systems are negative, Exam: 14:51 Constitutional: This is a well developed, well nourished patient who is awake, alert, sp3 and in no acute distress. Head/Face: Normocephalic, atraumatic. Eyes: Pupils equal round and reactive to light, extra-ocular motions intact. Lids and lashes normal. Conjunctiva and sclera are non-icteric and not injected. Cornea within normal limits. Periorbital areas with no swelling, redness, or edema. Neck: Trachea midline, no thyromegaly or masses palpated, and no cervical lymphadenopathy. Supple, full range of motion without nuchal rigidity, or vertebral point tenderness. No Meningismus. Chest/axilla: Normal chest wall appearance and motion. Nontender with no deformity. No lesions are appreciated. Cardiovascular: Regular rate and rhythm with a normal S1 and S2. No gallops, murmurs, or rubs. Normal PMI, no JVD. No pulse deficits. Respiratory: Lungs have equal breath sounds bilaterally, clear to auscultation and percussion. No rales, rhonchi or wheezes noted. No increased work of breathing, no retractions or nasal flaring. Back: No spinal tenderness. No costovertebral tenderness. Full range of motion. Skin: Warm, dry with normal turgor. Normal color with no rashes, no lesions, and no evidence of cellulitis. MS/ Extremity: Pulses equal, no cyanosis. Neurovascular intact. Full, normal range of motion. Neuro: Awake and alert, GCS 15, oriented to person, place, time, and situation. Cranial nerves II-XII grossly intact. Motor strength 5/5 in all extremities. Sensory grossly intact. Cerebellar exam normal. Normal gait. Psych: Awake, alert, with orientation to person, place and time. Behavior, mood, and affect are within normal limits. 14:51 Abdomen/GI: Mildly diffusely tender. Patient dry heaving but no active emesis. Blood pressure 221/99 which we will recheck. Remainder of vital signs normal., Vital Signs: 14:22 BP 221 / 99; Pulse 84; Resp 15; Temp 98.5; Pulse Ox 100% on R/A; Weight 95.25 kg; cm10 Height 6 ft. 2 in. ; Pain 2/10; 15:48 BP 195 / 92; Pulse 87; Resp 18; Pulse Ox 100% on R/A; ph 18:15 BP 189 / 98; Pulse 89; Resp 18; Pulse Ox 99% on R/A; ph 20:22 BP 220 / 116; Pulse 85; Resp 18; Pulse Ox 99% on R/A; al5 14:22 Body Mass Index 26.96 (95.25 kg, 187.96 cm) cm10 14:22 Pain Scale: Adult cm10 20:22 patient given 0.2 clonidine po al5 MDM: 14:24 Medical Screening Exam initiated sp3 14:53 Data reviewed: vital signs, nurses notes, old medical records, lab test result(s). ED sp3 course: 59-year-old male well-known to the ED here for recurrent symptoms of abdominal pain and vomiting. Differential diagnosis includes cancer related pain and emesis, medication induced pain in emesis, electrolyte abnormality, other GI pathology, foodborne illness, among others. I am not highly suspicious of surgical abdomen, sepsis, shock or any other critical pathology. CT scan from last visit also reviewed. Today workup will include general labs and treatment will include normal saline, pain and nausea control. Disposition probable discharge home if workup negative.. 08/05 14:25 Order name: CBC with Diff; Complete Time: 16:25 sp3 08/05 14:25 Order name: CMP; Complete Time: 16:25 3 08/05 14:25 Order name: Lipase; Complete Time: 16:25 3 08/05 14:25 Order name: IV Saline Lock; Complete Time: 15:46 sp3 08/05 14:25 Order name: Labs collected and sent; Complete Time: 15:46 sp3 Administered Medications: 15:47 Drug: Ondansetron IVP 4 mg IVP once; over 2 minutes Route: IVP; Site: right antecubital;ph 16:40 Follow up: Response: No adverse reaction; Nausea unchanged ph 16:40 Not Given (Other Intervention Used): morphineor iv 4 mg IVP once over 4 mins ph 16:40 Drug: Promethazine IVP 12.5 mg IVP once Route: IVP; Site: right antecubital; ph 17:00 Follow up: Response: No adverse reaction; Nausea unchanged; Vomiting unchanged ph 18:14 Drug: Ondansetron IVP 4 mg IVP once; over 2 minutes Route: IVP; Site: right antecubital;ph 18:55 Follow up: Response: No adverse reaction; Nausea unchanged; Vomiting unchanged ph 18:55 Drug: metoCLOPramide IVP 10 mg IVP once; over 1 to 2 minutes Route: IVP; Site: right ph antecubital; 19:54 Follow up: Response: No adverse reaction; Nausea unchanged al5 20:21 Drug: cloNIDine PO 0.2 mg PO once Route: PO; al5 20:21 Follow up: Response: No adverse reaction; Medication administered at discharge. al5 Disposition Summary: 08/05/24 16:29 Discharge Ordered Notes: Location: Home sp3 Condition: Stable sp3 Diagnosis - Chronic abdominal pain, vomiting sp3 Followup: sp3 - With: Private Physician - When: Upon discharge from the Emergency Department - Reason: Continuance of care Discharge Instructions: - Discharge Summary Sheet sp3 - Abdominal Pain, Adult sp3 Forms: - Medication Reconciliation Form sp3 - Antibiotic Education sp3 - Prescription Opioid Use sp3 - Patient Portal Instructions sp3 - Leadership Thank You Letter sp3 Prescriptions: - ondansetron 8 mg Oral Tablet,disintegrating - take 1 tablet ORAL route 2 times per day for 5 days as needed for nausea and sp3 vomiting; 15 tablet; Refills: 0, Product Selection Permitted Signatures: Dispatcher [employer] Yohana Regan RN RN Veena Zhu MD MD sp3 Jag Horvath MD MD sp4 Carol Merino RN RN cm10 Kianna Roy RN RN al5 Corrections: (The following items were deleted from the chart) 14:41 14:25 Abdomen Pelvis W [id number] ordered. EDMS EDMS
--- NOTE | 2024-08-05 16:29 | ER ---
Nurse's Notes [facility] Name: Zeke Mackay Sr Age: 59 yrs Sex: Male : 1965 Arrival Date: 08/05/2024 Time: 13:47 Bed 16 Private MD: Diagnosis: Chronic abdominal pain, vomiting Presentation: 08/05 14:22 Chief complaint: Patient states: Nausea, vomiting and abdominal pain onset this cm10 morning. Pt dry heaving in triage. Coronavirus screen: Client denies travel out of the [place] in the last 14 days. Ebola Screen: Patient denies travel to an Ebola-affected area in the 21 days before illness onset. Initial Sepsis Screen: Does the patient meet any 2 criteria? No. Patient's initial sepsis screen is negative. Does the patient have a suspected source of infection? No. Patient's initial sepsis screen is negative. Risk Assessment: Do you want to hurt yourself or someone else? Patient reports no desire to harm self or others. Onset of symptoms was August 05, 2024. 14:22 Method Of Arrival: Ambulatory 10 14:22 Acuity: RICKEY 3 cm10 Triage Assessment: 14:23 General: Appears in no apparent distress. uncomfortable, Behavior is cooperative. cm10 Neuro: No deficits noted. Level of Consciousness is awake, alert, obeys commands, Oriented to person, place, time, situation, Appropriate for age. Respiratory: No deficits noted. Airway is patent Respiratory effort is even, unlabored, Respiratory pattern is regular, symmetrical. 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 - Infectious Disease History:: Denies. - Social history:: Smoking status: unknown. Screenin:48 [facility] ED Fall Risk Assessment (Adult) History of falling in the last 3 months, ph including since admission No falls in past 3 months (0 pts) Confusion or Disorientation No (0 pts) Intoxicated or Sedated No (0 pts) Impaired Gait No (0 pts) Mobility Assist Device Used No (0 pt) Altered Elimination No (0 pt) Score/Fall Risk Level 0 - 2 = Low Risk Oriented to surroundings, Maintained a safe environment, Hourly rounding (assess needs \T\ fall precautionary measures) done. Abuse screen: Denies threats or abuse. Denies injuries from another. Nutritional screening: No deficits noted. Tuberculosis screening: No symptoms or risk factors identified. Assessment: 15:47 General: Appears in no apparent distress. Behavior is cooperative, appropriate for age. ph Pain: Denies pain. Neuro: Level of Consciousness is awake, alert, obeys commands, Oriented to person, place, time, situation. Cardiovascular: Capillary refill < 3 seconds in bilateral fingers Patient's skin is warm and dry. Respiratory: Airway is patent Respiratory effort is even, unlabored. GI: Bowel sounds present X 4 quads. Abd is soft X 4 quads Reports nausea, vomiting. Derm: Skin is pink, warm \T\ dry. 19:05 General: Appears in no apparent distress. uncomfortable, Behavior is calm, cooperative. al5 Pain: Denies pain. Neuro: Level of Consciousness is awake, alert, obeys commands, Oriented to person, place, time, situation. Cardiovascular: Capillary refill < 3 seconds Patient's skin is warm and dry. Respiratory: Airway is patent Respiratory effort is even, unlabored, Respiratory pattern is regular, symmetrical. GI: Reports nausea, vomiting. : No signs and/or symptoms were reported regarding the genitourinary system. EENT: No signs and/or symptoms were reported regarding the EENT system. Derm: Skin is intact, is healthy with good turgor, Skin is pink, warm \T\ dry. normal, wound to L medial ankle prior to arrival. Musculoskeletal: No signs and/or symptoms reported regarding the musculoskeletal system. Vital Signs: 14:22 BP 221 / 99; Pulse 84; Resp 15; Temp 98.5; Pulse Ox 100% on R/A; Weight 95.25 kg; cm10 Height 6 ft. 2 in. ; Pain 2/10; 15:48 BP 195 / 92; Pulse 87; Resp 18; Pulse Ox 100% on R/A; ph 18:15 BP 189 / 98; Pulse 89; Resp 18; Pulse Ox 99% on R/A; ph 20:22 BP 220 / 116; Pulse 85; Resp 18; Pulse Ox 99% on R/A; al5 14:22 Body Mass Index 26.96 (95.25 kg, 187.96 cm) cm10 14:22 Pain Scale: Adult cm10 20:22 patient given 0.2 clonidine po al5 ED Course: 13:50 Patient arrived in ED. al6 13:53 Veena Zhu MD is Attending Physician. sp3 14:23 Triage completed. cm10 14:23 Arm band placed on right wrist. Patient placed in an exam room, on a stretcher. cm10 14:26 Yohana Holden, RN is Primary Nurse. ph 15:45 Initial lab(s) drawn, by me, sent to lab. Inserted saline lock: 20 gauge in right ph antecubital area, using aseptic technique. Blood collected. Flushed with 10 mL NS. 15:47 CBC with Diff Sent. ph 15:47 CMP Sent. ph 15:47 Lipase Sent. ph 15:48 Patient has correct armband on for positive identification. Bed in low position. Call ph light in reach. Side rails up X 1. Pulse ox on. NIBP on. Door closed. Noise minimized. Warm blanket given. 18:15 No provider procedures requiring assistance completed. ph 20:14 Attending Physician role handed off by Veena Zhu MD sp4 20:14 Jag Horvath MD is Attending Physician. sp4 20:21 Provided Education on: follow up with primary doctor and oncologist. al5 20:21 IV discontinued, intact, bleeding controlled, No redness/swelling at site. Pressure al5 dressing applied. Administered Medications: 15:47 Drug: Ondansetron IVP 4 mg IVP once; over 2 minutes Route: IVP; Site: right antecubital;ph 16:40 Follow up: Response: No adverse reaction; Nausea unchanged ph 16:40 Not Given (Other Intervention Used): morphineor iv 4 mg IVP once over 4 mins ph 16:40 Drug: Promethazine IVP 12.5 mg IVP once Route: IVP; Site: right antecubital; ph 17:00 Follow up: Response: No adverse reaction; Nausea unchanged; Vomiting unchanged ph 18:14 Drug: Ondansetron IVP 4 mg IVP once; over 2 minutes Route: IVP; Site: right antecubital;ph 18:55 Follow up: Response: No adverse reaction; Nausea unchanged; Vomiting unchanged ph 18:55 Drug: metoCLOPramide IVP 10 mg IVP once; over 1 to 2 minutes Route: IVP; Site: right ph antecubital; 19:54 Follow up: Response: No adverse reaction; Nausea unchanged al5 20:21 Drug: cloNIDine PO 0.2 mg PO once Route: PO; al5 20:21 Follow up: Response: No adverse reaction; Medication administered at discharge. al5 Medication: 15:48 VIS not applicable for this client. ph Outcome: 16:29 Discharge ordered by . sp3 20:22 Discharged to home ambulatory, al5 20:22 Condition: stable 20:22 Discharge instructions given to patient, Instructed on discharge instructions, follow up and referral plans. medication usage, Demonstrated understanding of instructions, follow-up care, medications, 20:43 Patient left the ED. rv1 Signatures: Yohana Holden RN RN Veena Zhu MD MD sp3 Laquita Teresa rv1 Jag Horvath MD MD sp4 Carol Merino RN RN cm10 Kianna Roy RN RN al5 Altagracia Castaneda al6
[2024-08-05] MEDS ORDERED: PROMETHAZINE INJ 25 MG/ML AMP ONE (16:33)
[2024-08-05] MEDS ORDERED: METOCLOPRAMIDE 10 MG/2mL INJ ONE (18:46)
[2024-08-05] MEDS ORDERED: NA CHLORIDE 0.9% 50 ML ONE (18:46)
[2024-08-05] MEDS ORDERED: cloNIDine HCL 0.1 MG TAB ONE (20:16)
[2024-08-06 00:39] VITALS: TEMP 98.5
[2024-08-06 00:41] VITALS: O2SAT 99
[2024-08-06 00:42] VITALS: BP 220/116
== END 2024-08-05 20:43 | disposition home or self-care (01) ==
LOC: ER 13:47
DX: R10.9 Unspecified abdominal pain (principal); R11.10 Vomiting, unspecified; C78.89 Secondary malignant neoplasm of other digestive organs; Z95.1 Presence of aortocoronary bypass graft
CPT/HCPCS: 85025; 36415; 83690; 80053; 96375; 96374; 99284; J2550; J2765; J2405 ×2

== ENCOUNTER 2024-08-06 15:42 | Inpatient (IN) | payer OTHER, BC ==
--- OUTSIDE RECORDS SUMMARY | 2024-08-06 15:50 | XMS REPORT | Clinical Summary ---
Author Name Unknown Organization [facility] Address [address] [place] [address] Care Team Providers Care Dumb Waiter Operator Name Role Phone Margoth Souza MD Primary Care Provider [phone] Mary Jane Cassidy MD Unavailable [phone] Barry He MD Unavailable Patience Hunt MD Unavailable ZhuEagle gomez DO Unavailable [phone] Marianela Hutchinson MD Unavailable [phone] Margoth Souza MD Unavailable Ceci Nicholson MD Unavailable [phone] Marianela Hutchinson MD Primary Care Provider [phone] Sigifredo Davenport MD Unavailable Allergies No known [...] by Tylenol). 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 01/02/2024 04/14/2024 Diabetic ketoacidosis 2023 Overview (01/01/2024): Hospitalized locally 12/03/2023-12/06/2023 Encounters Date Type Department Care Team Description 08/06/2024 Orders Only [facility] [address] [place] [address], 7th [place] [address] Radha Castellon RPH 07/22/2024 Orders Only [facility] [address] [facility], 8th [place] [address] Marianela Hutchinson MD Adenocarcinoma of stomach (Primary Dx) 07/21/2024 Telephone [facility] [address] [facility], 8th [place] [address] Rosanna Álvarez, ARTURO Chemotherapy Teaching 07/16/2024 2:40 PM SURFACE MINER Follow-Up [facility] [address] [place] [address], 7th [facility] [place] [address] Marianela Hutchinson MD Adenocarcinoma of stomach (Primary Dx) 07/16/2024 Orders Only [facility] [address] [place] [address], 7th [place] [address] Marianela Hutchinson MD Adenocarcinoma of stomach (Primary Dx) 07/16/2024 Orders Only [facility] [address] [place] [address], [address] [place] [address] [place] [address] Radha Castellon Werner Adenocarcinoma of stomach (Primary Dx) 07/16/2024 Travel 07/15/2024 10:08 AM SURFACE MINER - 07/15/2024 11:59 PM SURFACE MINER Hospital Encounter CT Imaging and Diagnostic Imaging [address] [place] [address], 3rd [place] [address] Mary Kay Santamaria APRN Adenocarcinoma of stomach Discharge Disposition: Home 07/15/2024 9:49 AM SURFACE MINER - 07/15/2024 10:07 AM SURFACE MINER Hospital Encounter [facility] [address] [place] [address] Mary Kay Santamaria, FRANK Adenocarcinoma of stomach Discharge Disposition: Home 07/07/2024 Orders Only Gastrointestinal Center [facility], 7th [place] [address] Gillian Gomez PA-C Adenocarcinoma of stomach (Primary Dx) 07/06/2024 Telephone [facility] - Surgical Oncology [facility] Main [address]ldg, 7th [place] [address] Mary Kay Santamaria, FRANK 07/06/2024 Orders Only [facility] - Surgical Oncology [facility] Main [address]ldg, 7th [place] [address] Mary Kay Santamaria, FRANK 07/06/2024 Orders Only [facility] Main [address]ldg, 7th [place] [address] Gillian Gomez PA-C Adenocarcinoma of stomach (Primary Dx) 07/06/2024 Multidisciplinary Visit [facility] Main Bldg, 7th [place] [address] Gillian Gomez PA-C 07/06/2024 Orders Only Gastro[facility] Main Bldg, 7th [place] [address] Donnell Van Adenocarcinoma of stomach (Primary Dx) 07/02/2024 11:00 AM SURFACE MINER Nutrition Clinical Nutrition For your Nutrition appointment location directions please call: Marianela Hutchinson MD Munder, Kathryn, RD Left without seen 07/02/2024 10:30 AM SURFACE MINER Follow-Up [facility] - Surgical Oncology [facility] Main Bldg, 7th [place] [address] John Fong MD Adenocarcinoma of stomach 07/02/2024 Documentation [facility] - Surgical Oncology [address] Main Bldg, 7th Floor Elevator A [place] [phone] John Fong MD 06/30/2024 3:33 PM SURFACE MINER Anesthesia Event Perioperative Evaluation and Management Center [address] [place] [address] Main [facility], 6th [place] [address] Lien Antonio RN 06/30/2024 12:25 PM SURFACE MINER Anesthesia Event Endoscopy Center [address] [place] [address] Main [facility], 5th [place] [address] Susana Kelly MD 06/30/2024 12:00 PM SURFACE MINER - 06/30/2024 12:45 PM SURFACE MINER Surgery [facility]oscopy [facility] [address] [place] [address] Main [facility], 5th [place] [address] Brandon Alcala MD DIAGNOSTIC UPPER GASTROINTESTINAL ENDOSCOPY 06/30/2024 10:15 AM SURFACE MINER - 06/30/2024 2:24 PM SURFACE MINER Hospital Encounter Endoscopy Center [address] [place] [address], 5th [place] [address] Brandon Alcala MD Adenocarcinoma of stomach Discharge Disposition: Home 06/30/2024 Travel 06/29/2024 9:00 AM SURFACE MINER Consult Perioperative Evaluation and Management [address] [place] [address], 6th [place] [address] Mary Kay Santamaria APRN Vu, Khanh D, MD Encounter for preprocedural cardiovascular examination (Primary Dx); Coronary arteriosclerosis, not otherwise specified; Cardiomyopathy, not otherwise specified; Hypertension; 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 use of 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; Type 2 diabetes mellitus with hyperglycemia; Dyslipidemia; Hyponatremia; Hyperkalemia; Adenocarcinoma of stomach; Paroxysmal atrial fibrillation; Hyperlipidemia, not otherwise specified 06/29/2024 8:00 AM SURFACE MINER POEM Appointments Per[facility] Management [facility] [address] [place] [address] Main [facility], 6th [place] [address] Marianela Hutchinson MD 06/29/2024 7:30 AM SURFACE MINER - 06/29/2024 11:59 PM SURFACE MINER Hospital Encounter [facility] - [facility] [address] [place] [address] Main [facility], 2nd [place] [address] Mary Kay Santamaria, INSTRUMENT ASSEMBLER Adenocarcinoma of stomach Discharge Disposition: Home 06/29/2024 Travel 06/23/2024 Documentation [facility] [address] [place] [address], [facility] [place] [address] Mony Saavedra RN 06/22/2024 12:20 PM SURFACE MINER Follow-Up [facility] [address] [place] [address], [facility] [place] [address] Marianela Hutchinson MD Adenocarcinoma, NOS of stomach, NOS 06/22/2024 Orders Only [facility] [address] [place] [address], [address] [place] [address] [place] [address] Radha Castellon, [facility] 06/22/2024 Travel 06/20/2024 10:45 AM SURFACE MINER - 06/20/2024 11:59 PM SURFACE MINER Hospital Encounter Diagnostic Imaging Center [address] [place] [address], 3rd Floor Elevator [place] [phone] Adenocarcinoma, NOS of stomach, NOS; Malignant neoplasm of overlapping sites of esophagus Discharge Disposition: Home 06/20/2024 10:08 AM SURFACE MINER - 06/20/2024 10:44 AM SURFACE MINER Hospital Encounter [facility] [address] [place] [address] Gillian Gomez PA-C Adenocarcinoma, NOS of stomach, NOS Discharge Disposition: Home 06/16/2024 Telephone [facility] - Surgical Oncology [address] [place] [address], [facility] [place] [address] Mary Kay Santamaria, FRANK 06/15/2024 1:30 PM SURFACE MINER Infusion [facility] [address] [facility], 8th [place] [address] Marianela Hutchinson MD [facility], Jorge Tyson RN Adenocarcinoma of stomach (Primary Dx); Iron deficiency anemia, not otherwise specified 06/15/2024 12:40 PM SURFACE MINER Follow-Up [facility] [address] [place] [address], [facility] [place] [address] Marianela Hutchinson MD Adenocarcinoma, NOS of stomach, NOS; Malignant neoplasm of overlapping sites of esophagus 06/15/2024 10:24 AM SURFACE MINER - 06/15/2024 11:59 PM [facility] Hospital Encounter Diagnostic Laboratory Center [facility] [place] [address] Marianela Hutchinson MD Adenocarcinoma of stomach; Adenocarcinoma, NOS of stomach, NOS Discharge Disposition: Home 06/15/2024 Orders Only [facility] [address] [place] [address] Main [facility], 7th Floor Elevator [place] [phone] Radha Castellon, [facility] Adenocarcinoma of stomach (Primary Dx) 06/15/2024 Orders Only [facility] [address] [place] [address] Main [facility], 7th [place] [address] Gillian Gomez PA-C 06/15/2024 Travel 06/15/2024 Telephone [facility] - Gastroenterology, Hepatology & Nutrition [address] [place] [address] Main [facility], 7th Floor Elevator [place] [phone] Arnaldo Araujo PA-C 06/15/2024 Multidisciplinary Visit [facility] [address] [place] [address] Main [facility], [facility] [place] [address] Lakeshia Pablo PA 06/15/2024 Orders Only [facility] [address] [place] [address] Main [facility], 7th [place] [address] Marianela Hutchinson MD Adenocarcinoma of stomach (Primary Dx) 06/12/2024 Prep for Surgery [facility] - Gastroenterology, Hepatology & Nutrition [facility] Main dg, 7th [place] [address] Arnaldo Araujo PA-C Adenocarcinoma of stomach (Primary Dx) 06/12/2024 Telephone [facility] - Surgical Oncology [facility] [facility] Main dg, 7th [place] [address] Mary Kay Santamaria APRN 06/12/2024 Orders Only [facility] - Surgical Oncology [facility] Main [address]ld[address], 7th [place] [address] Mary Kay Santamaria APRN Adenocarcinoma of stomach (Primary Dx) 06/10/2024 Orders Only [facility] - Surgical Oncology [address] [place] [address], 7th [place] [address] Mary Kay Santamaria APRN Adenocarcinoma of stomach (Primary Dx) 06/05/2024 Telephone [facility] - Gastroenterology, Hepatology & Nutrition [address] [place] [address], 7th [place] [address] Arnaldo Araujo PA-C 06/03/2024 5:30 PM SURFACE MINER Infusion [facility] [address] [facility], 8th [place] [address] Marianela Hutchinson MD Lewandowski, Teresa M, RN Adenocarcinoma of stomach (Primary Dx) 06/03/2024 Travel 06/02/2024 Telephone [facility] [address] [place] [address], 7th [place] [address] Mony Saavedra, RN 06/01/2024 1:00 PM SURFACE MINER Infusion [facility] [address] [facility], Floor 6 [place] [address] Marianela Hutchinson MD Shaik, Anna Marie B, RN Adenocarcinoma of stomach (Primary Dx); Iron deficiency anemia, not otherwise specified 06/01/2024 10:53 AM SURFACE MINER - 06/01/2024 11:59 PM SURFACE MINER Hospital Encounter Diagnostic [facility] [address] [place] [address] Marianela Hutchinson MD Adenocarcinoma of stomach; Iron deficiency anemia, not otherwise specified Discharge Disposition: Home 06/01/2024 Orders Only [facility] [address] [place] [address], 7th [place] [address] Marianela Hutchinson MD 06/01/2024 Orders Only [facility] [address] [place] [address], [facility] [place] [address] Radha Castellon, [facility] Adenocarcinoma of stomach (Primary Dx); Iron deficiency anemia, not otherwise specified 06/01/2024 Travel 06/01/2024 Orders Only [facility] - [facility] [address] [facility], Floor 6 [place] [address] Marianela Hutchinson MD Adenocarcinoma of stomach (Primary Dx) 05/26/2024 Telephone [facility] - Gastroenterology, Hepatology & Nutrition [address] [place] [address] Main [facility], 7th [place] [address] Arnaldo Araujo, PA-C 05/22/2024 Telephone [facility] - Gastroenterology, Hepatology & Nutrition [facility], 7th [place] [address] Arnaldo Araujo PA-C 05/22/2024 Orders Only [facility] - Gastroenterology, Hepatology & Nutrition [address] [place] [address], 7th [place] [address] Van Gene PA-C Candidal esophagitis (Primary Dx) 05/20/2024 4:30 PM SURFACE MINER - 05/20/2024 11:59 PM SURFACE MINER Hospital Encounter Ambulatory [facility] - [address], 2nd Floor, [place] [address] Marianela Hutchinson MD Lewandowski, Teresa M, RN Adenocarcinoma of stomach Discharge Disposition: Home 05/19/2024 12:44 PM SURFACE MINER Anesthesia Event Endoscopy Center [address] [place] [address], 5th [place] [address] Maurice Ferrera MD Thomas, Ashly, CRNA 05/19/2024 12:00 PM SURFACE MINER - 05/19/2024 1:10 PM SURFACE MINER Surgery [facility] [address] [place] [address], 5th [place] [address] Brandon Alcala MD UPPER GASTROINTESTINAL ENDOSCOPY OF ESOPHAGUS, STOMACH, OR DUODENUM ANDJ ADJACENT STRUCTURES, WITH ENDOSCOPIC ULTRASOUND EXAMINATION 05/19/2024 11:17 AM SURFACE MINER - 05/19/2024 2:49 PM SURFACE MINER Hospital Encounter Endoscopy Center [address] [place] [address], 5th [place] [address] Brandon Alcala MD Adenocarcinoma of stomach Discharge Disposition: Home 05/19/2024 Travel 05/18/2024 1:00 PM SURFACE MINER [facility] [address] [facility], Floor 6 [place] [address] Marianela Hutchinson MD Rupp, Alexa B, RN Adenocarcinoma of stomach (Primary Dx) 05/18/2024 12:20 PM SURFACE MINER Follow-Up [facility] [address] [place] [address], [facility] [place] [address] Marianela Hutchinson MD Adenocarcinoma, NOS of stomach, NOS 05/18/2024 11:00 AM SURFACE MINER POEM Appointments Perioperative Evaluation and Management Center [address] [place] [address], [facility] [place] [address] Marianela Hutchinson MD 05/18/2024 10:32 AM SURFACE MINER - 05/18/2024 11:59 PM SURFACE MINER Hospital Encounter [facility] [address] [place] [address] Gillian Gomez PA-C Adenocarcinoma, NOS of stomach, NOS Discharge Disposition: Home 05/18/2024 Orders Only [facility] [address] [place] [address], [address] [place] [address] [place] [phone] Marianela Hutchinson MD Adenocarcinoma of stomach (Primary Dx) 05/18/2024 Orders Only [facility] [address] [place] [address], [address] [place] [address] Radha Castellon Werner Adenocarcinoma of stomach (Primary Dx); Iron deficiency anemia, not otherwise specified 05/18/2024 Travel 05/15/2024 11:59 PM SURFACE MINER Anesthesia Event [facility] [address] [place] [address], [address] [place] [address] Elevator [place] [phone] Eri Lynne, RN 05/06/2024 5:30 PM SURFACE MINER Infusion [facility] [address] [facility], 8th [place] [address] Marianela Hutchinson MD Pagara, Leni S RN Adenocarcinoma of stomach 05/04/2024 12:36 PM SURFACE MINER - 05/04/2024 11:59 PM SURFACE MINER Hospital Encounter Ambulatory Treatment Center - [facility] [address] [place] [address], 2nd Floor, [place] [address] Gillian Gomez PA-C Phoenix Benson RN Adenocarcinoma of stomach (Primary Dx) Discharge Disposition: Home 05/04/2024 12:20 PM SURFACE MINER Follow-Up [facility] [address] [place] [address], 7th [place] [address] Marianela Hutchinson MD Adenocarcinoma, NOS of stomach, NOS 05/04/2024 11:10 AM SURFACE MINER - 05/04/2024 12:35 PM SURFACE MINER Hospital Encounter [facility] [address] [place] [address] Gillian Gomez PAJeanC Adenocarcinoma, NOS of stomach, NOS; Adenocarcinoma of stomach Discharge Disposition: Home 05/04/2024 Orders Only [facility] [address] [place] [address], 7th [place] [address] Marianela Hutchinson MD Adenocarcinoma of stomach (Primary Dx) 05/04/2024 Orders Only [facility] [address] [place] [address], 7th [place] [address] Radha Castellon Werner Adenocarcinoma of stomach (Primary Dx) 05/04/2024 Travel 04/30/2024 Orders Only [facility] - Surgical Oncology [address] [place] [address], 7th [place] [address] Mary Kay Santamaria APRN Adenocarcinoma of stomach (Primary Dx); Paroxysmal atrial fibrillation; Hyperlipidemia, not otherwise specified; Type 2 diabetes mellitus with hyperglycemia 04/27/2024 8:05 PM SURFACE MINER Ancillary Procedure Image Library [address] [place] [address] Cancer 04/27/2024 8:00 PM SURFACE MINER Ancillary Procedure Image Library [address] [place], [place] [id number] Cancer 04/27/2024 Orders Only [facility] [address] [place] [address], 7th [place] [address] Donnell Van Adenocarcinoma of stomach (Primary Dx) 04/24/2024 Documentation [facility] [address] [facility], 8th [place] [address] Mary Kay Santamaria, FRANK 04/24/2024 Orders Only [facility] - Surgical Oncology [address] [place] [address], [facility] [place] [address] Mary Kay Santamaria, INSTRUMENT ASSEMBLER Adenocarcinoma, NOS of stomach, NOS (Primary Dx) 04/24/2024 Telephone [facility] - Surgical Oncology [address] [place] [address], [facility] [place] [address] Mary Kay Santamaria, FRANK 04/22/2024 Lab Requisition [facility] Sincere Moralez MD Jain, MD Sybil 04/21/2024 Orders Only [facility] [address] [place] [address], [facility] [place] [address] Gillian Gomez PA-C Adenocarcinoma, NOS of stomach, NOS (Primary Dx); Adenocarcinoma of stomach 04/16/2024 Telephone [facility] ASKALBebeto PHYSICIAN [address] [place] [address] 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, adapted physical education teacher Call 04/15/2024 10:09 AM SURFACE MINER Anesthesia Event MAIN OR [address] [place], [place] [id number] Meenakshi Crowe MD Miller, Wendy, PAXTON 04/15/2024 10:05 AM SURFACE MINER - 04/15/2024 1:25 PM SURFACE MINER Surgery MAIN OR [address] [place] [address] John Fong MD ROBOTIC ASSISTED SURGICAL LAPAROSCOPY 04/15/2024 7:32 AM SURFACE MINER - 04/15/2024 11:50 PM SURFACE MINER Hospital Encounter MAIN OR [address] [place] [address] John Fong MD Adenocarcinoma of stomach (Primary Dx) Discharge Disposition: Home 04/15/2024 Travel 04/14/2024 2:30 PM SURFACE MINER Consult [facility] - Surgical Oncology [address] [place] [address], 7th [place] [address] Gillian Gomez PA-C Badgwell, Brian, MD Adenocarcinoma, NOS of stomach, NOS (Primary Dx); Nausea 04/14/2024 Documentation [facility] - Surgical Oncology [address] [place] [address], 7th [place] [address] John Fong MD 04/13/2024 3:00 PM SURFACE MINER Consult [facility] [address] [place] [address], 7th [place] [address] Marianela Hutchinson MD Mass of stomach (Primary Dx) 04/13/2024 2:02 PM SURFACE MINER Anesthesia Event Perioperative Evaluation and Management Center [address] [place] [address], 6th [place] [address] Curtis Moctezuma PA 04/12/2024 8:22 AM SURFACE MINER - 04/12/2024 3:42 PM SURFACE MINER Emergency MAIN [id number] [address] [place] [address] Nghia Zhu MD Elsayem, Ahmed, MD Nausea and vomiting (Primary Dx); Gastric cancer; Pancreatitis Discharge Disposition: Left Against Medical Advice 04/12/2024 Travel 04/09/2024 8:25 PM SURFACE MINER Ancillary Procedure Image Library [address] [place] [address] Margoth Souza MD Cancer 04/09/2024 8:20 PM SURFACE MINER Ancillary Procedure Image Library [address] [place] [address] Margoth Souza MD Cancer 04/09/2024 8:15 PM SURFACE MINER Ancillary Procedure Image Library [address] [place] [address] Margoth Souza MD Cancer 04/09/2024 8:10 PM SURFACE MINER Ancillary Procedure Image Library [address] [place] [address] Margoth Souza MD Cancer 04/09/2024 8:05 PM SURFACE MINER Ancillary Procedure Image Library [address] [place] [address] Margoth Souza MD Cancer 04/09/2024 8:00 PM SURFACE MINER Ancillary Procedure Image Library [address] [place] [address] Margoth Souza MD Cancer 04/09/2024 10:48 AM SURFACE MINER - 04/09/2024 11:59 PM SURFACE MINER Hospital Encounter Diagnostic Laboratory [facility] [address] [place] [address] Ceci Nicholson MD Encounter for other preprocedural examination; Atherosclerosis of coronary 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, not otherwise specified; 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 Discharge Disposition: Home 04/09/2024 10:00 AM SURFACE MINER POEM Appointments Perioperative Evaluation [facility] Management Center [address] [place] [address], 6th [place] [address] Margoth Souza MD 04/09/2024 9:56 AM SURFACE MINER - 04/09/2024 10:47 AM SURFACE MINER Hospital Encounter [facility] - Cardiology [address] [place] [address], 2nd [place] [address] Ceci Nicholson MD Adenocarcinoma of stomach; Hyperlipidemia, not otherwise specified; Encounter for other preprocedural examination; Atherosclerosis of coronary 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, not otherwise specified Discharge Disposition: Home 04/09/2024 9:00 AM SURFACE MINER Consult Perioperative Evaluation and Management [address] [place] [address], 6th [place] [address] Mary Kay Santamaria APRN Misoi, Mercy W, MD Encounter for other preprocedural examination (Primary Dx); Adenocarcinoma of stomach; Paroxysmal atrial fibrillation; Hypertension; 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; Hyperlipidemia, not otherwise specified; Current use of 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; Atherosclerosis of coronary 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, not otherwise specified 04/09/2024 Travel 04/08/2024 Prep for Surgery [facility] - Surgical Oncology [address] [place] [address], [address] [place] [address] Mary Kay Santamaria APRN Adenocarcinoma of stomach (Primary Dx); Mass of stomach 04/08/2024 Orders Only [facility] - Surgical Oncology [address] [place] [address], [address] [place] [address] Mary Kay Santamaria APRN Adenocarcinoma of stomach (Primary Dx); Paroxysmal atrial fibrillation; Hypertension; 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; Hyperlipidemia, not otherwise specified; Current use of 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 04/08/2024 Orders Only [facility] [address] [place] [address], [address] [place] [phone] Gillian Gomez PA-C Adenocarcinoma, NOS of stomach, NOS (Primary Dx) 04/06/2024 [facility] [address], [address] [place], [place] [address] [address] Roberto Poole PA 04/06/2024 Orders [facility] [address] [place] [address], [address] [place] [address] [place] [address] Roberto Poole PA Mass of stomach (Primary Dx) 04/06/2024 [facility] [address], [address] [place] [phone] Roberto Poole PA Mass of stomach (Primary Dx) 04/06/2024 Telephone [facility] [address] [place] [address], [address] [place] [address] [place] [address] Anais Meng RN 02/11/2024 Travel 02/10/2024 3:30 PM CDT Telemedicine [facility] [address] [place] [address], 7th Floor Elevator U [place] [phone] Margoth Souza MD Renal mass (Primary Dx) 01/02/2024 7:15 AM CDT Ancillary Procedure MAIN OR [address] [place] [address] Margoth Souza MD 01/02/2024 7:00 AM CDT - 01/02/2024 11:40 AM CDT Surgery MAIN OR [address] [place] [address] Margoth Souza MD ROBOTIC ASSISTED PARTIAL NEPHRECTOMY 01/02/2024 6:58 AM CDT Anesthesia Event MAIN OR [address] [place] [address] Alonzo Liu MD Majekodumi, Jessy, CRNA 01/02/2024 5:04 AM CDT - 01/03/2024 5:05 PM CDT Hospital Encounter MAIN P09B [address] [place] [address] Margoth Souza MD Renal mass (Primary Dx) Discharge Disposition: Home 01/02/2024 Travel 12/31/2023 1:04 PM CDT - 12/31/2023 11:59 PM CDT Hospital Encounter CT [facility] Diagnostic [facility] [address] [place] [address], 3rd Floor Elevator C [place] [phone] Margoth Souza MD Renal mass Discharge Disposition: Home 12/31/2023 8:00 AM CDT Consult [facility] Center [address] [place] [address], 6th Floor Elevator A [place] [phone] Nakia Kirby APRN Khan, Sonya, MD Type 2 diabetes mellitus with hyperglycemia [E11.65] (Primary Dx); Pre-surgery evaluation 12/30/2023 9:30 AM CDT Office Visit [facility] [address] [place] [address], 7th [place] [address] Margoth Souza MD Renal mass 12/30/2023 Travel 12/30/2023 Telephone [facility] [address] [place] [address] Winnie Archibald, RN Appointment (Cannot get internet-phone broke) 12/30/2023 Orders Only [facility] [place] [phone] Roberto Poole PA Renal mass (Primary Dx) 12/29/2023 Orders Only [facility] [address] [place], [place] [phone] Veronica Del Castillo APRN 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); Endocrine/metabolic screening; Renal cell carcinoma <Left side> 12/25/2023 8:36 AM CDT Anesthesia Event [facility] [address] [place], [place] [phone] Lien Antonio, ARTURO 12/23/2023 10:30 AM CDT Consult Perioperative Evaluation and Management [address] [place], [place] [phone] Margoth Souza MD Oh, Jeong, MD Encounter for other preprocedural examination (Primary Dx); Renal mass; Hyperlipidemia, not otherwise specified 12/23/2023 9:00 AM CDT POEM Appointments [facility] [address] [place] [phone] Margoth Souza MD Pre-surgery evaluation (Primary Dx) 12/23/2023 8:45 AM CDT - 12/23/2023 11:59 PM CDT Hospital Encounter [facility] [address] [place] [phone] Margoth Souza MD Renal mass Discharge Disposition: Home 12/23/2023 Travel 12/09/2023 9:33 AM CDT - 12/09/2023 11:59 PM CDT Hospital Encounter [facility] [address] [place] [address] Veronica Del Castillo APRN 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; Endocrine/metabolic screening Discharge Disposition: Home 12/09/2023 8:30 AM CDT Consult Endocrine Center [facility], 6th [place] [address] Mary Jane Cassidy MD 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); Endocrine/metabolic screening; Renal cell carcinoma <Left side> 12/09/2023 Travel 10/23/2023 Orders Only [facility] [address] [place] [address], 7th [place] [address] Roberto Poole PA Renal mass (Primary Dx); Adrenal mass 10/03/2023 9:30 AM CDT - 10/03/2023 11:59 PM CDT Hospital Encounter Interventional Radiology [address] [place] [address], 4th [place] [address] Shazia Arriaza MD McRae, Stephen, MD Renal mass Discharge Disposition: Home 10/03/2023 8:30 AM CDT - 10/03/2023 9:29 AM CDT Hospital Encounter [facility] [address] [place] [address] Margoth Souza MD Renal mass Discharge Disposition: Home 10/03/2023 Travel 10/02/2023 8:24 AM CDT - 10/02/2023 11:59 PM CDT Hospital Encounter Interventional Radiology [address] [place] [address], 4th [place] [address] Margoth Souza MD Ho, ThanhRenata Horn PA-C Encounter for other preprocedural examination (Primary Dx); Renal mass; 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 Discharge Disposition: Home 10/02/2023 Travel 09/24/2023 7:46 AM CDT - 09/24/2023 11:59 PM CDT Hospital Encounter [facility] [address] [place] [address] Roberto Poole PA Adrenal mass Discharge Disposition: Home 09/20/2023 Orders Only [facility] [address] [place] [phone] Roberto Poole PA Adrenal mass (Primary Dx) 09/19/2023 11:45 AM CDT Ancillary Procedure [facility] [address] [place] [address] Shazia Arriaza MD Renal mass 09/19/2023 9:20 AM CDT - 09/19/2023 11:59 PM CDT Hospital Encounter [facility] [address] [place] [address] Shazia Arriaza MD Adenoma, NOS of adrenal gland, NOS <Left> Discharge Disposition: Home 09/19/2023 Orders Only Interventional Radiology [address] [place] [address] Abilio Ng PA-C Renal mass (Primary Dx) 09/19/2023 Travel 09/19/2023 Telephone [facility] [address] [place] [address] Barbara Rees MA 09/16/2023 4:00 PM CDT - 09/16/2023 11:59 PM CDT Hospital Encounter [facility] [address] [place] [address] Shazia Arriaza MD Renal mass; Adrenal mass Discharge Disposition: Home 09/16/2023 2:00 PM CDT Office Visit [facility] [address] [place] [address] Margoth Souza MD Renal mass (Primary Dx); Adrenal mass; Adenoma, NOS of adrenal gland, NOS <Left>; 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 09/16/2023 12:30 PM CDT NPR MDA PATIENT ACCESS 09/16/2023 Travel 08/08/2023 8:00 PM CDT Ancillary Procedure [facility] [address] [place] [address] Margoth Souza MD Cancer 08/08/2023 6:40 AM CDT Ancillary Procedure [facility] [address] [place] [address] Margoth Souza MD Cancer after 08/07/2023 Surgical History Surgery Date Site/Laterality Comments TOE AMPUTATION x2, 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, 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 APPENDECTOMY 05/20/1973 - 05/19/1974 Open WRIST SURGERY Left HAND SURGERY Right HIP ARTHRODESIS W/ ILIAC CRE ST BONE GRAFT Bilateral For hand surgeries CERVICAL SPINE SURGERY C3-6 fusion, x2 PA LAPAROSCOPY SURG PARTIAL NEPHRECTOMY 01/02/2024 Abdomen/Left Procedure: ROBOTIC ASSISTED PARTIAL NEPHRECTOMY; Surgeon: Margoth Souza MD; Location: MAIN OR; Service: UROLOGY PA ULTRASONIC GUIDANCE INTRAOPERATIVE 01/02/2024 Left Procedure: INTROPERATIVE ULTRASOUND - PERFORMED BY SURGEON; Surgeon: Margoth Souza MD; Location: MAIN OR; Service: UROLOGY CORONARY ARTERY BYPASS GRAFT 01/07/2024 PA LAPS ABD PRTM&OMENTUM DX W/WO SPEC BR/WA SPX 04/15/2024 Abdomen/N/A Procedure: ROBOTIC ASSISTED SURGICAL LAPAROSCOPY; Surgeon: John Fong MD; Location: MAIN OR; Service: SURG ONC - GASTRIC/HIPEC Medical devices from this surgery are in the Medical Devices section. PA FLUORO CENTRAL VENOUS ACC ESS DEV PLACEMENT 04/15/2024 Neck/N/A Procedure: FLUORO GUIDANCE FOR CENTRAL VENOUS ACCESS DEVICE PLACEMENT, REPLACEMENT, OR REMOVAL; Surgeon: John Fong MD; Location: MAIN OR; Service: SURG ONC - GASTRIC/HIPEC Medical devices from this surgery are in the Medical Devices section. PA US VASC ACCESS SITS VSL P ATENCY NDL ENTRY 04/15/2024 N/A Procedure: US GUIDANCE WITH EVAL OF POTENTIAL ACCESS SITES, REALTIME US VISUALIZATION OF VASC NEEDLE ENTRY; Surgeon: John Fong MD; Location: MAIN OR; Service: SURG ONC - GASTRIC/HIPEC Medical devices from this surgery are in the Medical Devices section. PA INSJ TUNNELED CTR VAD W/S UBQ PORT AGE 5 YR/> 04/15/2024 Neck/N/A Procedure: PORT-A-CATH PLACEMENT; Surgeon: John Fong MD; Location: MAIN OR; Service: SURG ONC - GASTRIC/HIPEC Medical devices from this surgery are in the Medical Devices section. PA ESOPHAGOGASTRODUODENOSCOP Y US SCOPE W/ADJ STRXRS 05/19/2024 Esophagus/N/A Procedure: UPPER GASTROINTESTINAL ENDOSCOPY OF ESOPHAGUS, STOMACH, OR DUODENUM ANDJ ADJACENT STRUCTURES, WITH ENDOSCOPIC ULTRASOUND EXAMINATION; Surgeon: Brandon Alcala MD; Location: MAIN ENDOSCOPY; Service: GASTROENTEROLOGY PA ESOPHAGOGASTRODUODENOSCOP Y TRANSORAL DIAGNOSTIC 06/30/2024 Esophagus/N/A Procedure: [...] locally 12/03/2023-12/06/2023 of note, pt was on [facility] Peripheral vascular disease 2023 Left [...] on file Legal Sex Male 11:38 AM SURFACE MINER Gender Identity Not on file Sexual Orientation Not on file Occupation Industry Job Start Date Job End Date retired from [employer] Not on file N ot on file Not on file Travel History Travel Start Travel End [place] 04/12/2024 04/12/2024 Obstetrics History Last Filed Vital Signs Vital Sign Reading Time Taken Comments Blood Pressure 147/83 07/16/2024 2:11 PM SURFACE MINER Pulse 78 07/16/2024 2:11 PM SURFACE MINER Temperature 36.5 C (97.7 F) 07/16/2024 2:11 PM CS T Respiratory Rate 18 07/16/2024 2:11 PM SURFACE MINER Oxygen Saturation 98% 07/16/2024 2:11 PM SURFACE MINER Inhaled Oxygen Concentration - - Weight 38.7 kg (85 lb 4.8 oz) 07/16/2024 2:11 PM SURFACE MINER Height 188 cm (6' 2") 05/19/2024 11:53 AM SURFACE MINER Body Mass Index 10.95 05/19/2024 11:53 AM SURFACE MINER Plan of Treatment Upcoming Encounters Date Type Department Care Team (Late st Contact Info) Description 02/01/2025 11:30 AM CDT Appointment Diagnostic [facility] [address] [place] [phone] Veronica Del Castillo, INSTRUMENT ASSEMBLER [facility] [place] [address] [email or web address] 02/01/2025 11:[address] Imaging [facility] Diagnostic Imaging [address] [place] [address], 3rd [place] [address] Veronica Del Castillo, INSTRUMENT ASSEMBLER [facility] [place] [address] [email or web address] 02/01/2025 3:00 PM CDT Follow-Up Endocrine Center [address] [place] [address], 6th [place] [address] Mary Jane Cassidy MD [address] [place] [phone] [email or web address] 02/05/2025 10:45 AM CDT Lab [facility] [address] [place] [address] Margoth Souza MD [address] [place] [phone] [email or web address] 02/05/2025 11:15 AM CDT Ancillary Procedure [facility] Outpatient Center [address] [place] [address] Margoth Souza MD [address] [place] [address] [email or web address] 02/05/2025 11:55 AM CDT Ancillary Procedure CT Imaging [address] [place] [address] Margoth Souza MD [address] [place] [phone] [email or web address] 02/08/2025 2:30 PM CDT Telemedicine [facility] [address] [place] [address] Margoth Souza MD [address] [place] [phone] [email or web address] Maintenance Due Date Last Done Comments COVID-19 Vaccine (#1) 01/09/1969 Pneumococcal Vaccine: 50+ Years (1 of 2 - PCV) 983 01/09/1975 Influenza Vaccine (#1) 2024 08/04/2018 Medical Devices Implanted Type Area Motion Picture Camera Operator Device Identifier Shelf Expiration Date Model / Serial / Lot Pwrport, Clearvue Slim 6fr - [id number] Implanted:Qty: 1 on 04/15/2024 by John Fong MD at [facility] [place] Implant Right: Neck BARD ACCESS SYSTEMS 12/17/2024 [id number] / / [id number] Procedures Procedure Name Priority Date/Time Associated Diagnosis Comments CT CHEST ABDOMEN PELVIS W CONTRAST Routine 07/15/2024 4:38 PM SURFACE MINER Adenocarcinoma of stomach .CBC Routine 07/15/2024 10:01 AM SURFACE MINER Adenocarcinoma of stomach CARCINOEMBRYONIC ANTIGEN Routine 025 10:01 AM SURFACE MINER Adenocarcinoma of stomach LACTATE DEHYDROGENASE Routine 07/15/2024 10:01 AM SURFACE MINER Adenocarcinoma of stomach PHOSPHORUS LEVEL Routine 07/15/2024 10:01 AM SURFACE MINER Adenocarcinoma of stomach MAGNESIUM LEVEL Routine 07/15/2024 10:01 AM SURFACE MINER Adenocarcinoma of stomach COMPREHENSIVE METABOLIC PANEL Routine 10:01 AM SURFACE MINER Adenocarcinoma of stomach COMPLETE BLOOD COUNT W/ DIFFERENTIAL Routine 07/15/2024 10:01 AM SURFACE MINER Adenocarcinoma of stomach RESEARCH PROTOCOL [id number] Routine 07/15 10:01 AM SURFACE MINER Adenocarcinoma of stomach MDA AP IHC WORKUP Routine 07/07/2024 12:29 PM SURFACE MINER Adenocarcinoma of stomach POC GLUCOSE SCREEN Routine 06/30/2024 1:23 PM SURFACE MINER PATHOLOGY BIOPSY INTERPRETATION Routine 06/30/2024 12:51 PM SURFACE MINER Adenocarcinoma of stomach PA ESOPHAGOGASTRODUODENOSCOP Y TRANSORAL DIAGNOSTIC 06/30/2024 12:15 PM SURFACE MINER Adenocarcinoma of stomach Case Notes 06/12 per gene to schedule on 06/30, per tor to schedule 06/30 thru lunch last AM case, slot held to offer. LVM and sent mychart to schedule-DC Special Needs HAND FILER BALANCE WHEELARTURO PEREZ COMPLETE 06/18.HAND FILER BALANCE WHEEL CHRIS HERNANDEZ FOR DAUGHTER WITH DETAILED INSTRUCTIONS FOR PROCEDURE IN ADDITION TO HOLD ON PLAVIX FOR 5 DAYS.HAND FILER BALANCE WHEEL CHRIS HERNANDEZ 1ST CALL 06/16. POC CHEM 8 Routine 06/30/2024 11:10 AM SURFACE MINER POC GLUCOSE SCREEN Routine 06/30/2024 10:52 AM SURFACE MINER POC CHEM 8 Routine 06/29/2024 9:54 AM SURFACE MINER EKG, 12-LEAD (SCHEDULED) Routine 06/29/2024 Adenocarcinoma of stomach PETCT F18 FDG (FLUORODEOXYGLUCOSE) WITH CONTRAST Routine 06/20/2024 12:42 PM SURFACE MINER Adenocarcinoma, NOS of stomach, NOS Malignant neoplasm of overlapping sites of esophagus POC GLUCOSE SCREEN Routine 06/20/2024 11:06 AM SURFACE MINER .CBC Routine 06/20/2024 10:35 AM SURFACE MINER Adenocarcinoma, NOS of stomach, NOS CARCINOEMBRYONIC ANTIGEN Routine 025 10:35 AM SURFACE MINER Adenocarcinoma, NOS of stomach, NOS LACTATE DEHYDROGENASE Routine 06/20/2024 10:35 AM SURFACE MINER Adenocarcinoma, NOS of stomach, NOS PHOSPHORUS LEVEL Routine 06/20/2024 10:35 AM SURFACE MINER Adenocarcinoma, NOS of stomach, NOS MAGNESIUM LEVEL Routine 06/20/2024 10:35 AM SURFACE MINER Adenocarcinoma, NOS of stomach, NOS COMPREHENSIVE METABOLIC PANEL Routine 10:35 AM SURFACE MINER Adenocarcinoma, NOS of stomach, NOS COMPLETE BLOOD COUNT W/ DIFFERENTIAL Routine 06/20/2024 10:35 AM SURFACE MINER Adenocarcinoma, NOS of stomach, NOS .CBC Routine 06/15/2024 10:39 AM SURFACE MINER Adenocarcinoma of stomach CARCINOEMBRYONIC ANTIGEN Routine 025 10:39 AM SURFACE MINER Adenocarcinoma, NOS of stomach, NOS LACTATE DEHYDROGENASE Routine 06/15/2024 10:39 AM SURFACE MINER Adenocarcinoma, NOS of stomach, NOS PHOSPHORUS LEVEL Routine 06/15/2024 10:39 AM SURFACE MINER Adenocarcinoma, NOS of stomach, NOS MAGNESIUM LEVEL Routine 06/15/2024 10:39 AM SURFACE MINER Adenocarcinoma, NOS of stomach, NOS COMPREHENSIVE METABOLIC PANEL Routine 10:39 AM SURFACE MINER Adenocarcinoma of stomach COMPLETE BLOOD COUNT W/ DIFFERENTIAL Routine 06/15/2024 10:39 AM SURFACE MINER Adenocarcinoma of stomach .CBC Routine 06/01/2024 11:10 AM SURFACE MINER Adenocarcinoma of stomach TRANSFERRIN Routine 06/01/2024 11:10 AM SURFACE MINER Iron deficiency anemia, not otherwise specified Adenocarcinoma of stomach FERRITIN Routine 06/01/2024 11:10 AM SURFACE MINER Iron deficiency anemia, not otherwise specified Adenocarcinoma of stomach IRON LEVEL Routine 06/01/2024 11:10 AM SURFACE MINER Iron deficiency anemia, not otherwise specified Adenocarcinoma of stomach COMPREHENSIVE METABOLIC PANEL Routine 11:10 AM SURFACE MINER Adenocarcinoma of stomach COMPLETE BLOOD COUNT W/ DIFFERENTIAL Routine 06/01/2024 11:10 AM SURFACE MINER Adenocarcinoma of stomach POC GLUCOSE SCREEN Routine 05/19/2024 1:52 PM SURFACE MINER PATHOLOGY BIOPSY INTERPRETATION Routine 05/19/2024 1:10 PM SURFACE MINER Adenocarcinoma of stomach PA ESOPHAGOGASTRODUODENOSCOP Y US SCOPE W/ADJ STRXRS 05/19/2024 12:34 PM SURFACE MINER Adenocarcinoma of stomach Case Notes 04/24- WAITING FOR TRIAGE TO NC FOR 05/01- Special Needs HAND FILER BALANCE WHEEL [place] Call Completed 04/30/24ad laproscopy on 04/15/24 POC GLUCOSE SCREEN Routine 05/19/2024 12:21 PM SURFACE MINER .CBC Routine 05/18/2024 10:55 AM SURFACE MINER Adenocarcinoma, NOS of stomach, NOS CARCINOEMBRYONIC ANTIGEN Routine 024 10:55 AM SURFACE MINER Adenocarcinoma, NOS of stomach, NOS LACTATE DEHYDROGENASE Routine 05/18/2024 10:55 AM SURFACE MINER Adenocarcinoma, NOS of stomach, NOS PHOSPHORUS LEVEL Routine 05/18/2024 10:55 AM SURFACE MINER Adenocarcinoma, NOS of stomach, NOS MAGNESIUM LEVEL Routine 05/18/2024 10:55 AM SURFACE MINER Adenocarcinoma, NOS of stomach, NOS COMPREHENSIVE METABOLIC PANEL Routine 10:55 AM SURFACE MINER Adenocarcinoma, NOS of stomach, NOS COMPLETE BLOOD COUNT W/ DIFFERENTIAL Routine 05/18/2024 10:55 AM SURFACE MINER Adenocarcinoma, NOS of stomach, NOS .CBC Routine 05/04/2024 11:34 AM SURFACE MINER Adenocarcinoma, NOS of stomach, NOS RESEARCH PROTOCOL [id number] Routine 05/04 11:34 AM SURFACE MINER Adenocarcinoma of stomach CARCINOEMBRYONIC ANTIGEN Routine 024 11:34 AM SURFACE MINER Adenocarcinoma, NOS of stomach, NOS LACTATE DEHYDROGENASE Routine 05/04/2024 11:34 AM SURFACE MINER Adenocarcinoma, NOS of stomach, NOS PHOSPHORUS LEVEL Routine 05/04/2024 11:34 AM SURFACE MINER Adenocarcinoma, NOS of stomach, NOS MAGNESIUM LEVEL Routine 05/04/2024 11:34 AM SURFACE MINER Adenocarcinoma, NOS of stomach, NOS COMPREHENSIVE METABOLIC PANEL Routine 11:34 AM SURFACE MINER Adenocarcinoma, NOS of stomach, NOS COMPLETE BLOOD COUNT W/ DIFFERENTIAL Routine 05/04/2024 11:34 AM SURFACE MINER Adenocarcinoma, NOS of stomach, NOS VERIFY CATHETER TIP PLACEMENT Routine 3:50 PM SURFACE MINER Adenocarcinoma of stomach POC GLUCOSE SCREEN Routine 04/15/2024 3:21 PM SURFACE MINER XR CHEST 1 VW PORTABLE Routine 2:45 PM SURFACE MINER POC GLUCOSE SCREEN Routine 04/15/2024 1:05 PM SURFACE MINER POC GLUCOSE SCREEN Routine 04/15/2024 12:52 PM SURFACE MINER CYTOLOGY NON-YARN WINDER INTERPRETATION Routine 04/15/2024 12:33 PM SURFACE MINER Adenocarcinoma of stomach PATHOLOGY SURGICAL INTERPRETATION Routine 04/15/2024 12:13 PM SURFACE MINER Adenocarcinoma of stomach FL CENTRAL VENOUS PLACE EXCHANGE Routine 04/15/2024 11:40 AM SURFACE MINER Adenocarcinoma of stomach POC GLUCOSE SCREEN Routine 04/15/2024 9:22 AM SURFACE MINER PA INSJ TUNNELED CTR VAD W/SUBQ PORT AGE 5 YR/> 04/15/2024 9:16 AM SURFACE MINER Adenocarcinoma of stomach Special Needs MTL@0800 PA US VASC ACCESS SITS VSL PATENCY NDL ENTRY 04/15/2024 9:16 AM SURFACE MINER Adenocarcinoma of stomach Special Needs MTL@0800 PA FLUORO CENTRAL VENOUS ACCESS DEV PLACEMENT 04/15/2024 9:16 AM SURFACE MINER Adenocarcinoma of stomach Special Needs MTL@0800 PA LAPS ABD PRTM&OMENTUM DX W/WO SPEC BR/WA SPX 04/15/2024 9:16 AM SURFACE MINER Adenocarcinoma of stomach Special Needs MTL@0800 CT ABDOMEN PELVIS W CONTRAST Routine 11:18 AM SURFACE MINER .CBC Routine 04/12/2024 9:04 AM SURFACE MINER LIPASE LEVEL Routine 04/12/2024 9:04 AM SURFACE MINER AMYLASE LEVEL Routine 04/12/2024 9:04 AM SURFACE MINER LACTATE DEHYDROGENASE Routine 04/12/2024 9:04 AM SURFACE MINER FRACTIONATED BILIRUBIN Routine 9:04 AM SURFACE MINER PHOSPHORUS LEVEL Routine 04/12/2024 9:04 AM SURFACE MINER MAGNESIUM LEVEL Routine 04/12/2024 9:04 AM SURFACE MINER COMPREHENSIVE METABOLIC PANEL Routine 9:04 AM SURFACE MINER COMPLETE BLOOD COUNT W/ DIFFERENTIAL Routine 04/12/2024 9:04 AM SURFACE MINER .CBC Routine 04/09/2024 11:09 AM SURFACE MINER Encounter for other preprocedural examination Atherosclerosis of coronary 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, not otherwise specified THYROID STIMULATING HORMONE Routine 03/21 11:09 AM SURFACE MINER Encounter for other preprocedural examination Atherosclerosis of coronary 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, not otherwise specified HEMOGLOBIN A1C Routine 04/09/2024 11:09 AM SURFACE MINER 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 Encounter for other preprocedural examination COMPREHENSIVE METABOLIC PANEL Routine 11:09 AM SURFACE MINER Encounter for other preprocedural examination Atherosclerosis of coronary 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, not otherwise specified COMPLETE BLOOD COUNT W/ DIFFERENTIAL Routine 04/09/2024 11:09 AM SURFACE MINER Encounter for other preprocedural examination Atherosclerosis of coronary 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, not otherwise specified EKG, 12-LEAD (SCHEDULED) Routine 04/09/2024 Adenocarcinoma of stomach Hyperlipidemia, not otherwise specified Encounter for other preprocedural examination Atherosclerosis of coronary 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, not otherwise specified PATHOLOGY OUTSIDE INTERPRETATION Routine 04/02/[address] ABDOMEN AND PELVIS Routine 2023 8:21 AM SURFACE MINER Cancer OSI CHEST Routine 03/23/2024 7:37 PM SURFACE MINER Cancer OSI CT CHEST ABDOMEN PELVIS Routine 08/2023 7:37 PM SURFACE MINER Cancer OSI CHEST Routine 03/23/2024 7:37 PM SURFACE MINER Cancer OSI CT CHEST Routine 03/22/2024 8:21 AM SURFACE MINER Cancer OSI CT ABDOMEN AND PELVIS Routine [...] INTRAOPERATIVE US STAT 01/02/2024 7:13 AM CDT PA ULTRASONIC GUIDANCE INTRAOPERATIVE 01/02/2024 6:08 AM CDT Renal mass Special Needs [email or web address]:Please collect and send tissue to pathology window with appropriate label. PA LAPAROSCOPY SURG PARTIAL NEPHRECTOMY 01/02/2024 6:08 AM CDT Renal mass Special Needs [email or web address]:Please collect and send tissue to pathology window [...] 09/16/2023 4:23 PM CDT Renal mass after 08/07/2023 Results * CT Chest Abdomen Pelvis with Contrast (07/15/2024 4:38 PM SURFACE MINER) Anatomical Region Laterality Modality Abdomen, Pelvis, Chest Computed Tomography 07/15/2024 5:39 PM SURFACE MINER Impressions 07/15/2024 9:45 PM SURFACE MINER 1. Redemonstration of diffuse wall thickening of [...] and potentially actionable. Narrative 07/15/2024 9:45 PM SURFACE MINER FULL RESULT: Examination: CT CHEST ABDOMEN PELVIS [...] unexpected and potentially actionable. Mary Kay Santamaria INSTRUMENT ASSEMBLER IMG CT ORDERABLES Final Result * Research Protocol [id number] (07/15/2024 10:01 AM SURFACE MINER) Only the most recent of2 resultswithin the time period is included. [facility] Research Protocol Specimen Specimen Collected, Ready for Pickup. 07/15/2024 12:00 PM SURFACE MINER [facility] Blood Venipuncture / Unknown 07/15/2024 10:01 AM SURFACE MINER 07/15/2024 10:10 AM SURFACE MINER Marianela Hutchinson MD RESEARCH LAB Z CODES Final Re sult [facility] Unless otherwise noted, all lab tests performed by: Division of Pathology and Laboratory Medicine [address] [place] [id number] * (ABNORMAL) .CBC (07/15/2024 10:01 AM [facility]) Only the most recent of11 resultswithin the time period is included. [facility] White Blood Cell 6.7 4.1 - 10.5 K/uL 07/15/2024 10:33 AM SURFACE MINER [facility] Red Blood Cell 4.91 4.30 - 6.04 M/uL 07/15/2024 10:33 AM [facility] Hemoglobin 12.4(L) 13.3 - 17.4 g/dL 07/15/2024 10:33 AM [facility] Hematocrit 37.8(L) 39.5 - 51.8 % 07/15/2024 10:33 AM [facility] Mean Cell Volume 77(L) 82 - 99 fL 07/15/2024 10:33 AM [facility] Mean Cell Hemoglobin 25.3(L) 26.6 - 33.2 pg 07/15/2024 10:33 AM [facility] Mean Cell Hemoglobin Concentration 32.8 31.1 - 35.2 g/dL 07/15/2024 10:33 AM [facility] RDW-SD 40.9 37.5 - 49.7 fL 07/15/2024 10:33 AM [facility] Red Cell Diameter Width 14.8 11.6 - 15.5 % 07/15/2024 10:33 AM [facility] Platelet 226 160 - 397 K/uL 07/15/2024 10:33 AM [facility] Mean Platelet Volume 9.6 9.1 - 12.6 fL 07/15/2024 10:33 AM [facility] INRBC 0.0 0.0 - 0.1 /100 WBC 07/15/2024 10:33 AM [facility] Comment: The INRBC (instrument NRBC) value reflects the enumeration of nucleated red blood cells contained in a 200uL sample of whole blood analyzed by the instrument. This value may differ from the NRBC value reported in a manual differential, which is based on a 100 cell differential. Neutrophil % 63.5 43.2 - 72.7 % 07/15/2024 10:33 AM [facility] Lymphocyte % 25.4 16.8 - 46.2 % 07/15/2024 10:33 AM [facility] Monocyte % 8.5 5.1 - 12.5 % 07/15/2024 10:33 AM [facility] Eosinophil % 2.1 0.4 - 6.3 % 07/15/2024 10:33 AM [facility] Basophil % 0.4 0.2 - 1.4 % 07/15/2024 10:33 AM [facility] IGRE % 0.1 0.1 - 1.5 % 07/15/2024 10:33 AM [facility] Comment:The IGRE% includes M etamyelocytes, Myelocytes and Promyelocytes. Neutrophil Abs 4.25 1.95 - 7.25 K/uL 07/15/2024 10:33 AM [facility] Lymphocyte Abs 1.70 1.01 - 3.24 K/uL 07/15/2024 10:33 AM [facility] Monocyte Abs 0.57 0.24 - 0.85 K/uL 07/15/2024 10:33 AM [facility] Eosinophil Abs 0.14 0.02 - 0.50 K/uL 07/15/2024 10:33 AM [facility] Basophil Abs 0.03 0.02 - 0.09 K/uL 07/15/2024 10:33 AM [facility] IG Abs 0.01 0.01 - 0.12 K/uL 07/15/2024 10:33 AM [facility] Blood Peripheral blood specimen / Unknown Venipuncture / Unknown 07/15/2024 10:01 AM [facility] 07/15/2024 10:09 AM [facility] Gillian Gomez PA-C LAB BLOOD ORDERABLES Final Result [facility] Unless otherwise noted, all lab tests performed by: Division of Pathology and Laboratory Medicine [address] [place] [id number] * (ABNORMAL) CMP (07/15/2024 10:01 AM [facility]) Only the most recent of10 resultswithin the time period is included. Bilirubin Total 0.4 0.0 - 1.2 mg/dL 07/15/2024 11:15 AM [facility] Comment:Indocyanine Green (I CG) may cause falsely elevated bilirubin results. Total and direct bilirubin must not be measured from samples containing indocyanine green. False elevation of total bilirubin can be seen in patients with IgG concentrations above 28 g/L. eGFR 98 >=60 mL/min/1. 73 sq. m 07/15/2024 11:15 AM [facility] Comment: The eGFRcr is calculated [...] 6.4 - 8.3 gm/dL 07/15/2024 11:15 AM [facility] Calcium Level Total 9.6 8.2 - 10.2 mg/dL 07/15/2024 11:15 AM [facility] Alkaline Phosphatase 117 40 - 129 U/L 07/15/2024 11:15 AM [facility] Albumin Level 4.4 3.5 - 5.2 gm/dL 07/15/2024 11:15 AM [facility] AST 22 <=40 U/L 07/15/2024 11:15 AM [facility] ALT 13 <=41 U/L 07/15/2024 11:15 AM [facility] Sodium Level 138 136 - 145 mmol/L 07/15/2024 11:15 AM [facility] Potassium Level 4.1 3.4 - 4.5 mmol/L 07/15/2024 11:15 AM [facility] Chloride 101 98 - 107 mmol/L 07/15/2024 11:15 AM [facility] CO2 27 22 - 29 mmol/L 07/15/2024 11:15 AM [facility] Anion Gap 10 4 - 14 mmol/L 07/15/2024 11:15 AM [facility] Creatinine 0.90 0.67 - 1.17 mg/dL 07/15/2024 11:15 AM [facility] BUN 10 6 - 23 mg/dL 07/15/2024 11:15 AM [facility] Glucose Level 181(H) 70 - 99 mg/dL 07/15/2024 11:15 AM [facility] Comment: Effective 12/14/15, the glucose reference intervals have been updated based on [place] [employer] guidelines (Standards of Medical Care [...] Unknown Venipuncture / Unknown 07/15/2024 10:01 AM SURFACE [facility]ER 07/15/2024 10:09 AM [facility] Gillian Gomez PA-C LAB BLOOD ORDERABLES Final Result Performing Organization Address City/State/[facility] Co de Phone Number [facility] Unless otherwise noted, all lab tests performed by: Division of Pathology and Laboratory Medicine [address] [place] [id number] * Phosphorus Level (07/15/2024 10:01 AM [facility]) Only the most recent of6 resultswithin the time period is included. Phosphorus Level 2.7 2.5 - 4.5 mg/dL 07/15/2024 11:15 AM [facility] Blood Peripheral blood specimen / Unknown Venipuncture / Unknown 07/15/2024 10:01 AM SURFACE [facility]ER 07/15/2024 10:09 AM [facility] Gillian Gomez PA-C LAB BLOOD ORDERABLES Final Result Performing Organization Address City/State/[facility] Co de Phone Number [facility] Unless otherwise noted, all lab tests performed by: Division of Pathology and Laboratory Medicine [address] [place] [id number] * Magnesium Level (07/15/2024 10:01 AM SURFACE [facility]ER) Only the most recent of6 resultswithin the time period is included. Magnesium Level 1.8 1.6 - 2.6 mg/dL 07/15/2024 11:15 AM SURFACE MINER [facility] Blood Peripheral blood specimen / Unknown Venipuncture / Unknown 07/15/2024 10:01 AM SURFACE [facility]ER 07/15/2024 10:09 AM SURFACE [facility]ER Gillian Gomez PA-C LAB BLOOD ORDERABLES Final Result Performing Organization Address [facility] de Phone Number [facility] Unless otherwise noted, all lab tests performed by: Division of Pathology and Laboratory Medicine [address] [place] [id number] * LDH (07/15/2024 10:01 AM SURFACE [facility]ER) Only the most recent of6 resultswithin the time period is included. LDH 202 135 - 225 U/L 07/15/2024 11:15 AM SURFACE MINER [facility] Blood Peripheral blood specimen / Unknown Venipuncture / Unknown 07/15/2024 10:01 AM SURFACE [facility]ER 07/15/2024 10:09 AM SURFACE MINER Narrative [facility] - 07/15/2024 11:15 AM SURFACE MINER Results greater than 1651 U/L may not be reliable due to matrix effect with extended dilution as it exceeds the technical publications writer's recommended limit. Caution should be exercised when interpreting such values and done in conjunction with clinical context. Gillian Gomez PA-C LAB BLOOD ORDERABLES Final Result Performing Organization Address [facility] Co de Phone Number [facility] Unless otherwise noted, all lab tests performed by: Division of Pathology and Laboratory Medicine [address] [place] [id number] * CEA (07/15/2024 10:01 AM SURFACE [facility]ER) Only the most recent of5 resultswithin the time period is included. Carcinoembryonic Antigen 3.0 <=3.8 ng/mL 07/15/2024 11:26 AM SURFACE MINER [facility] Blood Peripheral blood specimen / Unknown Venipuncture / Unknown 07/15/2024 10:01 AM SURFACE [facility]ER 07/15/2024 10:09 AM SURFACE MINER Narrative [facility] - 07/15/2024 11:26 AM SURFACE MINER Reference Ranges (age 20-69 years): Non-smoker: <= 3.8 ng/mL Smoker: <= 5.5 ng/mL This test is measured by electrochemiluminescence immunoassay on [employer] immunoassay analyzers. Results obtained in different methods are not interchangeable. Gillian Gomez PA-C LAB BLOOD ORDERABLES Final Result Performing Organization Address City/[facility] Co de Phone Number [facility] Unless otherwise noted, all lab tests performed by: Division of Pathology and Laboratory Medicine [address] [place] [address] * IHC Workup (07/07/2024 12:29 PM SURFACE MINER) Tissue 07/07/2024 12:2 9 PM SURFACE MINER 07/07/2024 12:29 PM SURFACE MINER Gillian Gomez PA-C [facility] BIOMARKER ORDERABLE S Final Result Performing Organization Address [facility] de Phone Number [facility] [place] [address], * (ABNORMAL) POC Glucose Screen - Fingerstick (06/30/2024 1:23 PM SURFACE MINER) Only the most recent of24 resultswithin the time period is included. Glucose Screen 168(H) 70 - 99 mg/dL 06/30/2024 1:25 PM SURFACE MINER [facility] POC Sample Type Capillary 06/30/2024 1:25 PM SURFACE MINER [facility] Blood 06/30/2024 1:23 PM SURFACE MINER 06/30/2024 1:25 PM SURFACE MINER Narrative [facility] - 06/30/2024 1:25 PM SURFACE MINER Capillary blood samples, e.g. obtained by fingerstick, [...] POCT ORDERABLES - DE VICE Final Result [facility] Unless otherwise noted, all lab tests performed by: Division of Pathology and Laboratory Medicine [address] [place] [id number] * Pathology Biopsy Interpretation (06/30/2024 12:51 PM SURFACE MINER) Only the most recent of3 resultswithin the time period is included. Addendum 1 By immunohistochemistry, approximately 10% of the tumor cells show weakly to moderately cytoplasmic staining for claudin 18. By immunohistochemistry the combined positive score (CPS) for PD-L1 is <1. 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 07/10/2024 8:47 AM SURFACE MINER [facility] Gross Description A: Esophagus, lower esophageal ulcer at 37cm: Multiple soft light castillo tissue fragments, 0.7 x 0.6 x 0.1 cm in aggregate, entirely submitted in A1. ET 07/10/2024 8:47 AM SURFACE MINER [facility] Biomarker Block(s) Block for biomarker testing: A1 07/10/2024 8:47 AM SURFACE [facility]ER [facility] Disclaimer "Some tests reported here may have been developed and performance characteristics determined by [facility] Pathology and Laboratory Medicine. These tests have not been specifically cleared or approved by the U.S. Food and Drug Administration. If applicable, controls were reviewed and showed appropriate reactivity." 07/10/2024 8:47 AM [facility] Tissue (Esophagus) 06/30/2024 12:51 PM SURFACE MINER 06/30/2024 2:51 PM SURFACE MINER us Brandon Galo MD LAB PATHOLOGY ORDERA BLES Edited Result - Final [facility] [address] [place] [address], [place] * (ABNORMAL) POC Chem 8 (06/30/2024 11:10 AM SURFACE MINER) Only the most recent of2 resultswithin the time period is included. POC Sodium 136(L) 138 - 146 mmol/L 06/30/2024 11:13 AM [facility] POC Potassium 4.5 3.5 - 4.9 mmol/L 06/30/2024 11:13 AM [facility] POC Chloride 100 98 - 109 mmol/L 06/30/2024 11:13 AM [facility] POC VTCO2 27 24 - 29 mmol/L 06/30/2024 11:13 AM [facility] POC Anion Gap 14 10 - 20 mmol/L 06/30/2024 11:13 AM [facility] POC BUN 30(H) 8 - 26 mg/dL 06/30/2024 11:13 AM [facility] POC Creatinine 1.1 0.6 - 1.3 mg/dL 06/30/2024 11:13 AM [facility] Comment:Medications, especia lly hydroxyurea or supplements, such as ascorbate, can interfere with test results causing a falsely and significantly higher result than expected. If a problem is suspected with a patient's result, a sample should be sent to the laboratory for confirmatory testing. POC I Glu 182(H) 70 - 99 mg/dL 06/30/2024 11:13 AM [facility] Comment:Medications, especia lly hydroxyurea or supplements, such as ascorbate, can interfere with test results causing a falsely and significantly higher result than expected. If a problem is suspected with a patient's result, a sample should be sent to the laboratory for confirmatory testing. POC Ionized Calcium 1.26 1.12 - 1.32 mmol/L 06/30/2024 11:13 AM [facility] POC Hct 39.0 38.0 - 51.0 % 06/30/2024 11:13 AM [facility] POC Hgb 13.3 12.0 - 17.0 gm/dL 06/30/2024 11:13 AM [facility] Comment:Hematocrit values fr om the iSTAT [...] standard. POC Sample Type Venous 11:13 AM [facility] POC eGFR 77 >=60 mL/min/1.7 3 sq. m 06/30/2024 11:13 AM [facility] Comment: The eGFRcr is calculated with [...] for CKD. Blood 06/30/2024 11:1 0 AM SURFACE MINER 06/30/2024 11:13 AM SURFACE MINER Narrative [facility] - 06/30/2024 11:13 AM SURFACE MINER Method description: The i-STAT is an analyzer [...] Final Result Performing Organization Address [facility] Co de Phone Number [facility] Unless otherwise noted, all lab tests performed by: Division of Pathology and Laboratory Medicine [address] [place] [phone] * EKG, 12-Lead (Scheduled) (06/29/2024) Only the most recent of3 resultswithin the time period is included. Mary Kay Santamaria APRN ECG ORDERABLES Final R esult Performing Organization Address [facility] Phone Number [facility] IECG * PETCT F18 FDG (Fluorodeoxyglucose) with contrast (06/20/2024 12:42 PM SURFACE MINER) Anatomical Region Laterality Modality Whole Body Positron Emissio n Tomography (PET) 06/20/2024 3:10 PM SURFACE MINER Impressions 06/20/2024 4:38 PM SURFACE MINER Biopsy-proven malignancy in the region of the [...] and potentially actionable. Narrative 06/20/2024 4:38 PM SURFACE MINER FULL RESULT: Examination: 18F-FDG-PET/CT with contrast, 06/20/2024 [...] * Transferrin with TIBC (06/01/2024 11:10 AM SURFACE MINER) Transferrin 211 200 - 360 mg/dL 06/01/2024 12:15 PM SURFACE MINER [facility] Total Iron Binding Capacity 295 250 - 450 mcg/dL 06/01/2024 12:15 PM SURFACE MINER [facility] Blood Peripheral blood specimen / Unknown Venipuncture / Unknown 06/01/2024 11:10 AM SURFACE MINER 06/01/2024 11:23 AM SURFACE MINER Marianela Hutchinson MD LAB BLOOD ORDERABLES Final Re sult [facility] Unless otherwise noted, all lab tests performed by: Division of Pathology and Laboratory Medicine [address] [place] [id number] * (ABNORMAL) Iron Level (06/01/2024 11:10 AM SURFACE MINER) Iron Level 38(L) 59 - 158 mcg/dL 06/01/2024 12:15 PM SURFACE MINER [facility] Is patient fasting? No 06/01/2024 12:15 PM SURFACE MINER [facility] Blood Peripheral blood specimen / Unknown Venipuncture / Unknown 06/01/2024 11:10 AM SURFACE MINER 06/01/2024 11:23 AM SURFACE MINER us Marianela Hutchinson MD LAB BLOOD ORDERABLES Final Re sult Performing Organization Address City/[facility]/ZIP Co de Phone Number [facility] Unless otherwise noted, all lab tests performed by: Division of Pathology and Laboratory Medicine [address] [place] [id number] [place] [address] Unless otherwise noted, all lab tests performed by: Division of Pathology and Laboratory Medicine [address] [place] [phone] * Ferritin Level (06/01/2024 11:10 AM SURFACE MINER) Ferritin Level 59 30 - 400 ng/mL 06/01/2024 12:15 PM SURFACE MINER [facility] Blood Peripheral blood specimen / Unknown Venipuncture / Unknown 06/01/2024 11:10 AM SURFACE MINER 06/01/2024 11:23 AM SURFACE MINER Narrative [facility] - 06/01/2024 12:15 PM SURFACE MINER Reference range established for age 20 - 60 years Marianela Hutchinson MD LAB BLOOD ORDERABLES Final Re sult Performing Organization Address [facility] Co de Phone Number [facility] Unless otherwise noted, all lab tests performed by: Division of Pathology and Laboratory Medicine [address] [place] [id number] * Tip Verification Central Vascular Access Device (04/15/2024 3:50 PM SURFACE MINER) Narrative John Fong MD - 04/15/2024 3:50 PM SURFACE MINER John Fong MD 04/15/2024 3:50 PM Central Vascular Access Device Tip Verification Performed by: John Fong MD Authorized by: John Fong MD CVAD Properties Date device placed: 04/15/2024 Device placement location: [facility] Catheter Type: Implanted venous port Catheter lumen: Single lumen Vein location: Internal jugular vein Laterality: Right Tip in good position and cleared for infusion John Fong MD IV THERAPY ORDERABLES Final Re sult * XR Chest 1 View Portable (04/15/2024 2:45 PM SURFACE MINER) Anatomical Region Laterality Modality Chest Digital Radiogra phy 04/15/2024 2:50 PM SURFACE MINER Impressions 04/15/2024 2:53 PM SURFACE MINER 1. Right infusion port catheter terminates over [...] and potentially actionable. Narrative 04/15/2024 2:53 PM SURFACE MINER FULL RESULT: Examination: XR CHEST 1 VW [...] IMAGING ORDERAB LES Final Result * Cytology Non-Inspector Precision Assembly Interpretation (04/15/2024 12:33 PM SURFACE MINER) Gross Description 4 Pap Stain Slides 750 ml. clear yellow fluid Specimen concentrated by cytocentrifugation technique 4 4:07 PM SURFACE [facility]ER [facility] Major Classification [facility]/benign 4 4:07 PM SURFACE MINER [facility] Diagnosis Peritoneal washing: No metastatic carcinoma identified Reactive mesothelial cells and histiocytes 4 4:07 PM SURFACE MINER [facility] Retained/Biomark er Testing SR:4S 4 4:07 PM SURFACE MINER [facility] Informational Points Some tests reported here may have been developed and performance characteristics determined by [facility] Pathology and Laboratory Medicine. These tests have not been specifically cleared or approved by the U.S. Food and Drug Administration. 4 4:07 PM SURFACE MINER [facility] Washing (Peritoneal Washing) 04/15/2024 12:33 PM SURFACE MINER 04/15/2024 1:10 PM SURFACE MINER John Fong MD LAB CYTOLOGY ORDERABLES Final Result [facility] [address] [address], * Pathology Surgical Interpretation (04/15/2024 12:13 PM SURFACE MINER) Only the most recent of2 resultswithin the time period is included. Submitted Clinical History Adenocarcinoma of stomach [C16.9] 04/20/2024 8:13 PM SURFACE MINER [facility] Diagnosis A. Falciform ligament, resection: Fibroadipose tissue, no tumor present 04/20/2024 8:13 PM [facility] Gross Description A: Falciform ligament, falciorm ligament biopsy....or 16: Consists of a fragment of castillo-yellow, lobulated fat (0.8 x 0.6 x 0.5 cm) entirely submitted in cassette A1. EF 04/20/2024 8:13 PM [facility] Disclaimer "Some tests reported here may have been developed and performance characteristics determined by [facility] Pathology and Laboratory Medicine. These tests have not been specifically cleared or approved by the U.S. Food and Drug Administration. If applicable, controls were reviewed and showed appropriate reactivity." 04/20/2024 8:13 PM SURFACE MINER [facility] Tissue (Falciform Ligament) 04/15/2024 12:13 PM SURFACE MINER 04/15/2024 1:18 PM SURFACE MINER John Fong MD LAB PATHOLOGY ORDERABLES Final Result [facility] [address] [address], * [place] Central Venous Place Exchange (04/15/2024 11:40 AM SURFACE MINER) Narrative Systemgenerated, Documentation - 04/15/2024 11:40 AM SURFACE MINER This procedure requires no interpretation from the radiologist. John Fong MD IMG FLUOROSCOPY ORDERABLES Fin al Result * CT Abdomen Pelvis with IV Contrast (04/12/2024 11:18 AM SURFACE MINER) Anatomical Region Laterality Modality Abdomen, Pelvis Computed Tomogra phy 04/12/2024 11:5 2 AM SURFACE MINER Impressions 04/12/2024 12:11 PM SURFACE MINER Wall thickening and slight mucosal irregularity of [...] and potentially actionable. Narrative 04/12/2024 12:11 PM SURFACE MINER FULL RESULT: Examination: CT ABDOMEN PELVIS W [...] [facility]ER [facility]) Bilirubin Direct 04/12/20 9:47 AM [facility] Comment: Direct and indirect bilirubin will not be reported when Total bilirubin result is <0.3 mg/dL Indocyanine Green (ICG) may cause falsely elevated bilirubin results. Total and direct bilirubin must not be measured from samples containing indocyanine green. Bilirubin Indirect 2023 9:47 AM [facility] Comment:Direct and indirect bilirubin will not be reported when Total bilirubin result is <0.3 mg/dL Bilirubin Total <0.3 0.0 - 1.2 mg/dL 04/12/2024 9:47 AM [facility] Comment: Direct and indirect bilirubin will [...] Unknown Venipuncture / Unknown 04/12/2024 9:04 AM SURFACE MINER 04/12/2024 9:08 AM [facility] us Nghia Zhu MD LAB BLOOD ORDERABLES Final Resu lt [facility] Unless otherwise noted, all lab tests performed by: Division of Pathology and Laboratory Medicine [address] [place] [phone] * (ABNORMAL) Lipase (04/12/2024 9:04 AM [facility]) Lipase Level 311(H) 13 - 60 U/L 04/12/2024 10:09 AM [facility] Blood Peripheral blood specimen / Unknown Venipuncture / Unknown 04/12/2024 9:04 AM SURFACE MINER 04/12/2024 9:08 AM SURFACE MINER Narrative [facility] - 04/12/2024 10:09 AM SURFACE MINER Reference range established based on adult population us Nghia Zhu MD LAB BLOOD ORDERABLES Final Resu lt Performing Organization Address [facility] de Phone Number [facility] Unless otherwise noted, all lab tests performed by: Division of Pathology and Laboratory Medicine [address] [place] [phone] * (ABNORMAL) Amylase (04/12/2024 9:04 AM SURFACE MINER) Amylase Level 171(H) 28 - 100 U/L 04/12/2024 9:47 AM SURFACE MINER [facility] Blood Peripheral blood specimen / Unknown Venipuncture / Unknown 04/12/2024 9:04 AM SURFACE MINER 04/12/2024 9:08 AM SURFACE MINER Nghia Zhu MD LAB BLOOD ORDERABLES Final Resu lt Performing Organization Address [facility] de Phone Number [facility] Unless otherwise noted, all lab tests performed by: Division of Pathology and Laboratory Medicine [address] [place] [id number] * TSH (04/09/2024 11:09 AM SURFACE MINER) Only the most recent of2 resultswithin the time period is included. Thyroid Stimulating Hormone 1.53 0.27 - 4.20 mcunit/mL 04/09/2024 12:23 PM SURFACE MINER [facility] Blood Peripheral blood specimen / Unknown Venipuncture / Unknown 04/09/2024 11:09 AM SURFACE MINER 04/09/2024 11:19 AM SURFACE MINER Ceci Nicholson MD LAB BLOOD ORDERABLES Final Resu lt Performing Organization Address City/[facility] Co de Phone Number [facility] [facility] Unless otherwise noted, all lab tests performed by: Division of Pathology and Laboratory Medicine [address] [place] [id number] * (ABNORMAL) Hemoglobin A1c (04/09/2024 11:09 AM SURFACE MINER) Only the most recent of3 resultswithin the time period is included. Hemoglobin A1c 7.0(H) 4.3 - 5.6 % 04/09/2024 12:14 PM SURFACE MINER [facility] Blood Peripheral blood specimen / Unknown Venipuncture / Unknown 04/09/2024 11:09 AM SURFACE MINER 04/09/2024 11:19 AM SURFACE MINER Narrative [facility] - 04/09/2024 12:14 PM SURFACE MINER HbA1c values >=6.5% are diagnostic of diabetes mellitus. Diagnosis should be confirmed by repeat testing. Therapeutic Action suggested: >8.0% HbA1c; Goal of therapy: <7.0% HbA1c us Ceci Nicholson MD LAB BLOOD ORDERABLES Final Resu lt [facility] Unless otherwise noted, all lab tests performed by: Division of Pathology and Laboratory Medicine [address] [place] [id number] * Pathology Outside Interpretation (04/02/2024) Materials Received Accession#, Stained, Block, Unstained Collected Received A. [id number], 20 SS, 0 BLOCKS, 0 USS 04/02/2024 04/22/2024 04/22/2024 5:36 PM SURFACE MINER [facility] Diagnosis Outside ([id number], 20 SS, 0 BLOCKS, 0 USS, collected [...] ADENOCARCINOMA WITH SIGNET CELL FEATURES. See comment. CLEMENTEISAURO 04/22/2024 5:36 PM SURFACE MINER [facility] Comment Part A. There is no evidence of malignancy on H&E and immunohistochemical stain for Cytokeratin AE1/AE3. Of note, the biopsy may not be auto service representative of the entire lesion. Please correlate [...] immunohistochemistry: Negative (Score: 0) 04/22/2024 5:[address] [facility] Biomarker Block(s) Block for biomarker testing: C1 Normal block: N/A 04/22/2024 5:[address] [facility] Disclaimer "Some tests reported here may have been developed and performance characteristics determined by [facility] Pathology and Laboratory Medicine. These tests have not been specifically cleared or approved by the U.S. Food and Drug Administration. If applicable, controls were reviewed and showed appropriate reactivity." 04/22/2024 5:[address] [facility] Tissue 04/02/2024 04/22/2024 6:4 0 AM SURFACE MINER Sybil Edmonds MD LAB PATHOLOGY ORDERABLES Final R esult [facility] [address] [address], [place] * OSI CT Abdomen and Pelvis (04/01/2024 8:21 AM SURFACE MINER) Only the most recent of2 resultswithin the time period is included. Narrative Systemgenerated, Documentation - 04/27/2024 8:22 AM SURFACE MINER Study acquired at another institution. For comparison only. No [facility] originated interpretation requested or available. [facility] Zhu DO IMG OUTSIDE IMAGE ORDERAB LES Final Result * OSI CT CHEST ABDOMEN PELVIS (03/23/2024 7:37 PM SURFACE MINER) Narrative Systemgenerated, Documentation - 04/09/2024 7:37 PM SURFACE MINER Study acquired at another institution. For comparison only. No [facility] originated interpretation requested or available. us Margoth Souza MD IMG OUTSIDE IMAGE ORDERABLES Fin al Result * OSI Chest (03/23/2024 7:37 PM SURFACE MINER) Only the most recent of4 resultswithin the time period is included. Narrative Systemgenerated, Documentation - 04/09/2024 7:37 PM SURFACE MINER Study acquired at another institution. For comparison only. No [facility] originated interpretation requested or available. us Margoth Souza MD IMG OUTSIDE IMAGE ORDERABLES Fin al Result * OSI CT Chest (03/22/2024 8:21 AM SURFACE MINER) Narrative Systemgenerated, Documentation - 04/27/2024 8:21 AM SURFACE MINER Study acquired at another institution. For comparison only. No [facility] originated interpretation requested or available. us [facility] Regan Zhu DO IMG OUTSIDE IMAGE ORDERAB LES Final Result * (ABNORMAL) Basic Metabolic Panel- Total Calcium (01/03/2024 2:59 PM CDT) Only the most recent of7 resultswithin the time period is included. eGFR 71 >=60 mL/min/1. 73 sq. m 01/03/2024 3:44 PM CDT [facility] Comment: The eGFRcr is calculated with the [...] - 10.2 mg/dL 01/03/2024 3:44 PM CDT [facility] Sodium Level 139 136 - 145 mmol/L 01/03/2024 3:44 PM CDT [facility] Potassium Level 3.9 3.4 - 4.5 mmol/L 01/03/2024 3:44 PM CDT [facility] Chloride 103 98 - 107 mmol/L 01/03/2024 3:44 PM CDT [facility] CO2 28 22 - 29 mmol/L 01/03/2024 3:44 PM CDT [facility] Anion Gap 8 4 - 14 mmol/L 01/03/2024 3:44 PM CDT [facility] Creatinine 1.18(H) 0.67 - 1.17 mg/dL 01/03/2024 3:44 PM CDT [facility] BUN 15 6 - 23 mg/dL 01/03/2024 3:44 PM CDT [facility] Glucose Level 137(H) 70 - 99 mg/dL 01/03/2024 3:44 PM CDT [facility] Comment: Effective 12/14/15, the glucose reference intervals have been updated based on [place] Diabetes [employer] guidelines (Standards of Medical Care [...] CDT 01/03/2024 3:02 PM CDT us Alicia P Mcmanus INSTRUMENT ASSEMBLER LAB BLOOD ORDERABLES Final Result Performing Organization Address [facility] Co de Phone Number [facility] Unless otherwise noted, all lab tests performed by: Division of Pathology and Laboratory Medicine [address] [place] [id number] * Zinc Transporter 8 Ab (01/03/2024 4:22 AM CDT) Zinc T8 AB <15.0 <15.0 U/mL 01/15/2024 11:18 AM CDT [facility] Comment: ADDITIONAL INFORMATION This test has been modified from the technical publications writer's instructions. Its performance characteristics were determined by [facility] in a manner consistent with CLIA requirements. This test has not been cleared or approved by the U.S. Food and Drug Administration. Test Performed by: [place] [address] Critical Care Unit Manager: Mary Jane Topete Ph.D.; CLIA# [id number] Blood Peripheral blood specimen / Unknown Venipuncture / Unknown 01/03/2024 4:22 AM CDT 01/03/2024 4:55 AM CDT Alicia Mcmanus APRN LAB BLOOD ORDERABLES Final Result Performing Organization Address [facility] de Phone Number [facility] * Islet Antigen 2 (IA-2) Antibody (01/03/2024 4:22 AM CDT) IA-2 Antibody 0.00 <=0.02 nmol/L 01/07/2024 12:20 AM CDT [facility] Comment: ADDITIONAL INFORMATION This test was developed and its performance characteristics determined by [facility] in a manner consistent with CLIA requirements. This test has not been cleared or approved by the U.S. Food and Drug Administration. Test Performed by: [address] [address] Critical Care Unit Manager: Mary Jane Topete Ph.D.; CLIA# [id number] Blood Peripheral blood specimen / Unknown Venipuncture / Unknown 01/03/2024 4:22 AM CDT 01/03/2024 4:55 AM CDT Alicia Sohail Mcmanus APRN LAB BLOOD ORDERABLES Final Result Performing Organization Address [facility] de Phone Number [facility] * GREG Ab Assay (01/03/2024 4:22 AM CDT) [facility] [id number] 0.00 <=0.02 nmol/L 01/07/2024 12:01 AM CDT [facility] Comment: ADDITIONAL INFORMATION This test was developed and its performance characteristics determined by [facility] in a manner consistent with CLIA requirements. This test has not been cleared or approved by the U.S. Food and Drug Administration. Test Performed by: [address] [address] Critical Care Unit Manager: Mary Jane Topete Ph.D.; CLIA# [id number] Blood Peripheral blood specimen / Unknown Venipuncture / Unknown 01/03/2024 4:22 AM CDT 01/03/2024 4:55 AM CDT Alicia Mcmanus APRN LAB BLOOD ORDERABLES Final Result Performing Organization Address [facility] de Phone Number [facility] * Insulin Ab (01/03/2024 4:22 AM CDT) [facility] Insulin Ab-[place] 0.00 0.00 - 0.02 nmol/L 01/06/2024 5:14 PM CDT [facility] Comment: ADDITIONAL INFORMATION This test was developed and its performance characteristics determined by [facility] in a manner consistent with CLIA requirements. This test has not been cleared or approved by the U.S. Food and Drug Administration. Test Performed by: [address] [address] Critical Care Unit Manager: Mary Jane Topete Ph.D.; CLIA# [id number] Blood Peripheral blood specimen / Unknown Venipuncture / Unknown 01/03/2024 4:22 AM CDT 01/03/2024 4:55 AM CDT Alicia Mcmanus APRN LAB BLOOD ORDERABLES Final Result [facility] * C Peptide (01/03/2024 4:22 AM CDT) C-Peptide 2.12 1.10 - 4.40 ng/mL 01/03/2024 5:48 AM CDT [facility] Blood Peripheral blood specimen / Unknown Venipuncture / Unknown 01/03/2024 4:22 AM CDT 01/03/2024 4:55 AM CDT Alicia Mcmanus APRN LAB BLOOD ORDERABLES Final Result [facility] Unless otherwise noted, all lab tests performed by: Division of Pathology and Laboratory Medicine [address] [place] [address] * (ABNORMAL) Hemogram (01/02/2024 7:20 PM CDT) White Blood Cell 13.8(H) 4.1 - 10.5 K/uL 01/02/2024 7:33 PM CDT [facility] Red Blood Cell 4.74 4.30 - 6.04 M/uL 01/02/2024 7:33 PM CDT [facility] Hemoglobin 12.2(L) 13.3 - 17.4 g/dL 01/02/2024 7:33 PM CDT [facility] Hematocrit 38.6(L) 39.5 - 51.8 % 01/02/2024 7:33 PM CDT [facility] Mean Cell Volume 81(L) 82 - 99 fL 01/02/2024 7:33 PM CDT [facility] Mean Cell Hemoglobin 25.7(L) 26.6 - 33.2 pg 01/02/2024 7:33 PM CDT [facility] Mean Cell Hemoglobin Concentration 31.6 31.1 - 35.2 g/dL 01/02/2024 7:33 PM CDT [facility] RDW-SD 39.1 37.5 - 49.7 fL 01/02/2024 7:33 PM CDT [facility] Red Cell Diameter Width 13.1 11.6 - 15.5 % 01/02/2024 7:33 PM CDT [facility] Platelet 291 160 - 397 K/uL 01/02/2024 7:33 PM CDT [facility] Mean Platelet Volume 9.7 9.1 - 12.6 fL 01/02/2024 7:33 PM CDT [facility] INRBC 0.0 0.0 - 0.1 /100 WBC 01/02/2024 7:33 PM CDT [facility] Comment: The INRBC (instrument NRBC) value [...] PRICE LAB BLOOD ORDERABLES Final R esult [facility] Unless otherwise noted, all lab tests performed by: Division of Pathology and Laboratory Medicine [address] [place] [address] [place] [address] * (ABNORMAL) Beta Hydroxy Quant (01/02/2024 7:20 PM CDT) Only the most recent of2 resultswithin the time period is included. [facility] Beta-Hydroxybuty rate 0.85(H) 0.02 - 0.27 mmol/L 01/02/2024 8:01 PM CDT [facility] Is patient fasting? No 01/02/2024 8:01 PM CDT [facility] Comment:A fasting specimen i s recommended and results obtained from non-fasting specimens should be interpreted with caution using reference ranges based on fasting status and in conjunction with clinical context. Blood Peripheral blood specimen / Unknown Venipuncture / Unknown 01/02/2024 7:20 PM CDT 01/02/2024 7:24 PM CDT Narrative [facility] - 01/02/2024 8:01 PM CDT Reference range based on fasting. us Alicia Mcmanus INSTRUMENT ASSEMBLER LAB BLOOD ORDERABLES Final Result [facility] Unless otherwise noted, all lab tests performed by: Division of Pathology and Laboratory Medicine [address] [place] [id number] * (ABNORMAL) ABG+ (ABG, Na, K, Cl, Glu, Hgb, Hct, Lactate, Ion Ca) (01/02/2024 10:38 AM CDT) Only the most recent of2 resultswithin the time period is included. [facility] Sodium Arterial 140 136 - 146 mmol/L 01/02/2024 10:44 AM CDT [facility] Potassium Arterial 3.7 3.4 - 4.5 mmol/L 01/02/2024 10:44 AM CDT [facility] Chloride Arterial 103 98 - 106 mmol/L 01/02/2024 10:44 AM CDT [facility] Glucose Arterial 270(H) 70 - 105 mg/dL 01/02/2024 10:44 AM CDT [facility] Hgb Art 12.9(L) 13.5 - 17.5 g/dL 01/02/2024 10:44 AM CDT [facility] Hematocrit Arterial 40(L) 42 - 52 % 01/02/2024 10:44 AM CDT [facility] Lactate Arterial 1.0(H) 0.4 - 0.8 mmol/L 01/02/2024 10:44 AM [facility] Calcium Ionized Arterial 1.14(L) 1.15 - 1.29 mmol/L 01/02/2024 10:44 AM [facility] pH Arterial 7.35 7.35 - 7.45 01/02/2024 10:44 AM [facility] P CO2 Arterial 42.9 35.0 - 48.0 mmHg 01/02/2024 10:44 AM T [facility] P O2 Arterial 164(H) 83 - 108 mmHg 01/02/2024 10:44 AM [facility] Bicarbonate Arterial 24 21 - 28 mmol/L 01/02/2024 10:44 AM [facility] WB Anion Gap 13 7 - 16 mmol/L 01/02/2024 10:44 AM [facility] Base Excess Arterial -2 -2 - 3 mmol/L 01/02/2024 10:44 AM [facility] Oxygen Saturation Arterial 99 95 - 99 % 01/02/2024 10:44 AM [facility] Oxygen FLOW Rate/ FiO2 01/02/2024 10:44 AM [facility] O2 Therapy 01/02/2024 10:44 AM [facility] Art Kirill Test Not Applicable (Arterial Line Draw) 01/02/2024 10:44 AM [facility] Blood Arterial blood specimen / Unknown Arterial Line / Unknown 01/02/2024 10:38 AM T 01/02/2024 10:41 AM [facility] - 01/02/2024 10:44 AM [facility] The ABL90 Flex Plus analyzer is an [...] MD LAB BLOOD ORDERABLES Final Re sult [facility] Unless otherwise noted, all lab tests performed by: Division of Pathology and Laboratory Medicine [facility] [place] [address] * Intraoperative Ultrasound - For Image Storage [...] EXP DATE 01/22/2024 12/23/2023 2:19 PM CDT [facility] Blood Peripheral blood specimen / Unknown Venipuncture / Unknown 12/23/2023 8:51 AM CDT 12/23/2023 9:00 AM CDT Margoth Souza MD BLOOD BANK TEST ORDERABLES Final Result [facility] [address] [place] [address] * Preop Updated Expiration (12/23/2023 8:51 AM CDT) Pathologist [facility] PREOP STATUS 01/02/2024 11:33 PM CDT [facility] PREOP EXP DATE 01/02/2024 01/02/2024 11:33 PM CDT [facility] Blood Peripheral blood specimen / Unknown Venipuncture / Unknown 12/23/2023 8:51 AM CDT 12/23/2023 9:00 AM CDT Margoth Souza MD BLOOD BANK TEST ORDERABLES Final Result Performing Organization Address City/[facility]/ZIP Co de Phone Number [facility] [address] [place] [address] * (ABNORMAL) Urinalysis with Reflex Culture (12/23/2023 8:51 AM CDT) Only the most recent of2 resultswithin the time period is included. Urine Appearance Clear Clear 12/23/19 9:33 AM CDT [facility] Urine Color Straw Colorless, Straw, Yellow, Dark Yellow, Straw-Yellow 12/23/2023 9:33 AM CDT [facility] Urine Specific [place] 1.032 1.003 - 1.035 12/23/2023 9:33 AM CDT [facility] Urine pH 6.0 5.0 - 8.0 12/23/2023 9:33 AM CDT [facility] Urine Glucose >=1000(A) Negative mg/dL 12/23/2023 9:33 AM CDT [facility] Urine Ketones Negative Negative mg/dL 12/23/2023 9:33 AM CDT [facility] Urine Blood Negative Negative 12/23/2023 9:33 AM CDT [facility] Urine Protein 30(A) Negative mg/dL 12/23/2023 9:33 AM CDT [facility] Urine Bilirubin Negative Negative 9:33 AM CDT [facility] Urine Urobilinogen Negative Negative 12/23/2023 9:33 AM CDT [facility] Urine Nitrite Negative Negative 12/23/2023 9:33 AM CDT [facility] Urine Leukocyte Esterase Negative Negative 12/23/2023 9:33 AM CDT [facility] Urine Mucous Not Seen Not Seen, Trace /HPF 12/23/2023 9:33 AM CDT [facility] Urine Bacteria Not Seen Not Seen /HPF 12/23/2023 9:33 AM CDT [facility] Urine Squamous Epithelial Cells OCC Not Seen, OCC, Rare /HPF 12/23/2023 9:33 AM CDT [facility] Urine WBC <1 <=2 /HPF 12/23/2023 9:33 AM CDT [facility] Urine RBC 1 <=2 /HPF 12/23/2023 9:33 AM CDT [facility] Urine Voided urine specimen / Unknown Non-blood Collection / Unknown 12/23/2023 8:51 AM CDT 12/23/2023 9:10 AM CDT Narrative [facility] - 12/23/2023 9:33 AM CDT Some reporting parameters within the Urinalysis test have changed due to the implementation of new instrumentation in the Main [place], allowing greater sensitivity of measurement. Urinalysis results reported by the [facility] using existing instrumentation, as well as Urinalysis testing performed manually or by back-up methodology at the main [place], will remain relatively unchanged. New reporting parameters and units will now be reported for all campuses. us Margoth Souza MD URINE ORDERABLES Final Result [facility] Unless otherwise noted, all lab tests performed by: Division of Pathology and Laboratory Medicine [address] [place] [id number] * 30-Day Pre-Op Type and Screen (12/23/2023 8:51 AM CDT) Only the most recent of2 resultswithin the time period is included. ABORh O POS 12/23/2023 8:45 AM CDT [facility] ABSC Negative 12/23/2023 8:45 AM CDT [facility] BB Criteria Met Criteria met 12/23/2023 8:45 AM CDT [facility] Historical Record Check Complete 12/23/2023 8:45 AM CDT [facility] Blood Peripheral blood specimen / Unknown Venipuncture / Unknown 12/23/2023 8:51 AM CDT 12/23/2023 9:00 AM CDT Margoth Souza MD BLOOD BANK TEST ORDERABLES Final Result [facility] [address] [place] [address] [address] [place] [address] * TMP Interpretation Exception PreOp Expiration (12/23/2023 8:51 AM CDT) Only the most recent of2 resultswithin the time period is included. TMP Exception 12/24/2023 10:47 AM CDT [facility] TMP Signature . 12/24/2023 10:47 AM CDT [facility] Blood Peripheral blood specimen / Unknown Venipuncture / Unknown 12/23/2023 8:51 AM CDT 12/23/2023 9:00 AM CDT us Margoth Souza MD BLOOD BANK TEST ORDERABLES Final Result [facility] [address] [place] [address] * ACTH (12/09/2023 9:45 AM CDT) Only the most recent of2 resultswithin the time period is included. Pathologist [facility] ACTH 22 7 - 63 pg/mL 12/09/2023 12:19 PM CDT [facility] Blood Peripheral blood specimen / Unknown Venipuncture / Unknown 12/09/2023 9:45 AM CDT 12/09/2023 9:52 AM CDT Narrative [facility] - 12/09/2023 12:19 PM CDT Reference range established based on adult population (7 - 10am draws). No established reference values for p.m. draws. Results greater than 1826 pg/mL may not be reliable due to matrix effect with extended dilution as it exceeds the technical publications writer's recommended limit. ACTH reference intervals are established for the morning hours from 7-10 am. Due to the circadian rhythm of ACTH levels in plasma, the sample collection time must be noted. Caution should be exercised when interpreting such values and done in conjunction with clinical context. LeahEyeScribesZora Del Castillo APRN LAB BLOOD ORDERABLES Final Result [facility] Unless otherwise noted, all lab tests performed by: Division of Pathology and Laboratory Medicine [address] [place] [address] * DHEA Sulfate (12/09/2023 9:45 AM CDT) [facility] 81 20 - 299 mcg/dL 12/10/2023 12:10 PM CDT [facility] Comment: Test Performed by: [place] [id number] Critical Care Unit Manager: Mary Jane Topete Ph.D.; CLIA# [id number] Blood Peripheral blood specimen / Unknown Venipuncture / Unknown 12/09/2023 9:45 AM CDT 12/09/2023 9:56 AM CDT [facility] APRN LAB BLOOD ORDERABLES Final Result [facility] * Cortisol, Total (12/09/2023 9:45 AM CDT) Only the most recent of4 resultswithin the time period is included. Cortisol 11.39 4.82 - 19.50 mcg/dL 12/09/2023 11:00 AM CDT [facility] Blood Peripheral blood specimen / Unknown Venipuncture / Unknown 12/09/2023 9:45 AM CDT 12/09/2023 9:55 AM CDT Narrative [facility] - 12/09/2023 11:00 AM CDT Cortisol [...] BLOOD ORDERABLES Final Result [facility] Unless otherwise noted, all lab tests performed by: Division of Pathology and Laboratory Medicine [address] [place] [address] * IR CT GUIDED BIOPSY RENAL (10/03/2023 10:27 AM CDT) Anatomical Region Laterality Modality Abdomen/Pelvis, Organ (liver/spleen/kidney) Computed Tomography Narrative 10/04/2023 9:03 AM CDT Table formatting from the original result was not included. Date of Procedure: 10/03/23 Attending Physician: Kumar Comer MD Floor Installation Mechanic: None Pre Procedure Diagnosis: Renal mass Post [...] 14.5 second(s) 10/03/2023 9:57 AM CDT [facility] International Normalization Ratio 0.98 0.87 - 1.12 10/03/2023 9:57 AM CDT [facility] Blood Peripheral blood specimen / Unknown Venipuncture / Unknown 10/03/2023 9:27 AM CDT 10/03/2023 9:28 AM CDT us Abilio Ng PA-C LAB BLOOD ORDERABLES Final Result [facility] [address] [place] [address] * Type and Screen (10/03/2023 9:27 AM CDT) ABORh O POS 10/03/2023 9:17 AM CDT [facility] ABSC Negative 10/03/2023 9:17 AM CDT [facility] Clot Expiration 10/06/2023 23:59 10/03/2023 9:17 AM CDT [facility] Historical Record Check Complete 10/03/2023 9:17 AM CDT [facility] Blood Peripheral blood specimen / Unknown Venipuncture / Unknown 10/03/2023 9:27 AM CDT 10/03/2023 9:52 AM CDT ConradoRenata Ng PA-C BLOOD BANK TEST ORDERABLES Final Result [facility] TRANSF[facility] [address] [place] [address] * X-ray Chest 2 Views (09/19/2023 9:24 [...] and potentially actionable. us Shazia Arriaza MD [facility] [place] [facility] ORD ERABLES Final Result * Metanephrines Fractionated (09/16/2023 4:24 PM CDT) Normetane Free-[place] 0.43 <0.90 nmol/L 09/19/2023 2:59 PM CDT [facility] Metanephr Free-Maxwell <0.20 <0.50 nmol/L 09/19/2023 2:59 PM CDT [facility] Comment: ADDITIONAL INFORMATION This test was developed and its performance characteristics determined by [facility] in a manner consistent with CLIA requirements. This test has not been cleared or approved by the U.S. Food and Drug Administration. Test Performed by: [facility] - [address] [address] Critical Care Unit Manager: Scot Skelton M.D. Ph.D.; CLIA# [id number] Blood Peripheral blood specimen / Unknown Venipuncture / Unknown 09/16/2023 4:24 PM CDT 09/16/2023 4:41 PM CDT us Shazia Arriaza MD LAB BLOOD ORDERABLES Final Result Performing Organization Address City/[facility]/ZIP Co de Phone Number [facility] * Hepatitis C Virus Antibody (09/16/2023 4:24 PM CDT) [facility] HCVAb. Non Reactive Non Reactive 09/17/2023 9:11 AM CDT [facility] Blood Peripheral blood specimen / Unknown Venipuncture / Unknown 09/16/2023 4:24 PM CDT 09/16/2023 4:41 PM CDT Narrative [facility] - 09/17/2023 9:11 AM CDT Antibody detection in the immunocompromised and immunosuppressed population may be delayed or absent entirely. Therefore serial testing, correlation with other clinical findings, and supplemental testing (if available) should be taken into consideration when interpreting the results. us Shazia Arriaza MD LAB BLOOD ORDERABLES Final Result Performing Organization Address City/[facility] Co de Phone Number [facility] Unless otherwise noted, all lab tests performed by: Division of Pathology and Laboratory Medicine [address] [place] [id number] * Aldosterone Level (09/16/2023 4:24 PM CDT) [facility] Aldosterone-[place] 8.1 <=21 ng/dL 09/20/2023 1:02 AM CDT [facility] Comment: ADDITIONAL INFORMATION Reference range for patients 11 years and older is based on upright A.M. collection from subjects without sodium restrictions. This test was developed and its performance characteristics determined by [facility] in a manner consistent with CLIA requirements. This test has not been cleared or approved by the U.S. Food and Drug Administration. Test Performed by: [facility] - [place] [id number] Critical Care Unit Manager: Scot Skelton M.D. Ph.D.; CLIA# [id number] Blood Peripheral blood specimen / Unknown Venipuncture / Unknown 09/16/2023 4:24 PM CDT 09/16/2023 4:41 PM CDT us Shazia Arriaza MD LAB BLOOD ORDERABLES Final Result [facility] * Renin Activity (09/16/2023 4:24 PM CDT) [facility] Renin Activity-[place] 4.3 ng/mL/h 09/19 3:42 PM CDT [facility] Comment: REFERENCE VALUE (Peripheral vein specimen) Na-deplete, upright: Mean: 5.9 Range: 2.9-10.8 Na-replete, upright: Mean: 1.0 Range: < or =0.6-3.0 ADDITIONAL INFORMATION Testing performed by Liquid Chromatography-Tandem Mass Spectrometry (LC-MS/MS). This test was developed and its performance characteristics determined by [facility] in a manner consistent with CLIA requirements. This test has not been cleared or approved by the U.S. Food and Drug Administration. Test Performed by: [facility] - [address] [address] Critical Care Unit Manager: Scot Skelton M.D. Ph.D.; CLIA# [id number] Blood Peripheral blood specimen / Unknown Venipuncture / Unknown 09/16/2023 4:24 PM CDT 09/16/2023 4:41 PM CDT us Shazia Arriaza MD LAB BLOOD ORDERABLES Final Result [facility] * Urine Culture (09/16/2023 4:24 PM CDT) [facility] Urine Culture Normal site mirna present. Generally of low significance. Correlate with clinical data and culture history. 09/18/2023 8:31 AM CDT [facility] Urine Voided urine specimen / Unknown Non-blood Collection / Unknown 09/16/2023 4:24 PM CDT 09/16/2023 4:41 PM CDT us Shazia Arriaza MD MICROBIOLOGY - GENERAL ORD ERABLES Final Result Performing Organization Address City/[facility]/ZIP Co de Phone Number [facility] Unless otherwise noted, all lab tests performed by: Division of Pathology and Laboratory Medicine [address] [place] [phone] * T4 (09/16/2023 4:24 PM CDT) [facility] Thyroxine 7.0 4.5 - 11.7 mcg/dL 09/16/2023 5:55 PM CDT [facility] Blood Peripheral blood specimen / Unknown Venipuncture / Unknown 09/16/2023 4:24 PM CDT 09/16/2023 4:41 PM CDT us Shazia Arriaza MD LAB BLOOD ORDERABLES Final Result Performing Organization Address City/[facility]/ZIP Co de Phone Number [facility] Unless otherwise noted, all lab tests performed by: Division of Pathology and Laboratory Medicine [address] [place] [phone] * Confirm ABORh (09/16/2023 4:23 PM CDT) [facility] ABORh Confirm O POS 09/16/2023 4:15 PM CDT [facility] - TRANSFUSION SERVICES Blood Peripheral blood specimen / Unknown Venipuncture / Unknown 09/16/2023 4:23 PM CDT 09/16/2023 4:41 PM CDT us Shazia Arriaza MD BLOOD BANK TEST ORDERABLES Final Result [facility] - TRANSFUSION SERVICES [facility] Transfusion [facility] [id number] [place] [address] after 08/07/2023 Insurance Advance Directives * Full Code (Latest Code Status on File) Date Activated Date Inactivated Comments 04/12/2024 1:24 PM 04/12/2024 5:43 PM * Full Code Date Activated Date Inactivated Comments 01/02/2024 1:48 PM 01/03/2024 7:17 PM Care Teams Dumb Waiter Operator Relationship Specialty [place] [address] [place] [phone] [email or web address] PCP - General Urology 07/30/23 04/14/24 Marko Eaglewerner Spears DO [address] [place] [id number] [email or web address] PCP - External Primary Care Provider Family Practice 04/08/24 Marianela Hutchinson MD [address] [place] [address] [phone] [email or web address] PCP - General Gastrointestinal Medical Oncology 05/04/24 Mary Jane Cassidy MD [address] [place] [phone] [email or web address] Consulting Physician Endocrinology 12/09/23 Barry He MD [address] [place] [address] [phone] [email or web address] Consulting Physician Internal Medicine 12/23/23 Patience Hunt MD [address] [place] [phone] [email or web address] Consulting Physician Endocrinology 12/31/23 Marianela Hutchinson MD [address] [place] [address] [phone] [email or web address] Consulting Physician Gastrointestinal Medical Oncology 04/13/24 Margoth Souza MD [address] [place] [phone] [email or web address] Consulting Physician Urology 04/15/24 Ceci Nicholson MD [address] [place] [phone] [email or web address] Consulting Physician Internal Medicine 04/09/24 Sigifredo Davenport MD [address] [place] [phone] [email or web address] Consulting Physician Internal Medicine 06/29/24
[2024-08-06] MEDS ORDERED: FAMOTIDINE 20 MG/2 ML VIAL IV ONE (17:07)
[2024-08-06 17:09] LABS: Absolute Lymphocytes (CBC) 1.4 K/uL (0.7-4.9); Absolute Monocytes 0.8 K/uL (0.1-1.3); Absolute Neutrophil 11.7 K/uL (1.8-8.0); Basophils % 0.3 % (0-1.3); Eosinophils % 0.1 % (0-4.4); Hematocrit 40.5 % (39.6-49.0); Hemoglobin 13.6 g/dL (13.6-17.9); Lymphocytes % 10.1 % (15.3-44.8); MCH 25.9 pg (27.0-35.0); MCHC 33.6 g/dL (32.0-36.0); MPV 7.2 fL (7.6-11.3); Monocytes % 5.5 % (3.3-12.3); Nucleated Red Blood Cells % 0.1 % (0-0); Platelets 541 thou/uL (152-406); RBC Red Blood Cell Count 5.26 M/uL (4.33-5.43); Red Cell Distribution Width 16.1 % (12.1-15.2)
[2024-08-06] MEDS ORDERED: PROMETHAZINE INJ 25 MG/ML AMP ONE (17:18)
[2024-08-06 17:26] LABS: Albumin 3.9 g/dL (3.4-5.0); Albumin/Globulin Ratio 0.7 (1.1-1.8); Anion Gap 16.6 mEq/L (5.0-15.0); Bilirubin Total 0.7 mg/dL (0.2-1.0); Globulin 5.4 g/dL (2.3-3.5); Magnesium 1.8 mg/dL (1.6-2.4); Potassium 3.6 mEq/L (3.5-5.1); Protein, Total 9.3 g/dL (6.4-8.2)
--- NOTE | 2024-08-06 19:52 | ER ---
Nurse's Notes [facility] Name: Zeek Mackay Sr Age: 59 yrs Sex: Male : 1965 Arrival Date: 08/06/2024 Time: 15:42 Bed 20 Private MD: Diagnosis: Nausea with vomiting, unspecified Presentation: 08/06 16:01 Chief complaint: Patient states: vomiting since yesterday. Coronavirus screen: At this iw time, the client does not indicate any symptoms associated with coronavirus-19. Ebola Screen: No symptoms or risks identified at this time. Risk Assessment: Do you want to hurt yourself or someone else? Patient reports no desire to harm self or others. Onset of symptoms was August 06, 2024. 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 - Infectious Disease History:: Denies. - Social history:: Smoking status: Patient denies any tobacco usage or history of. Screenin:[address] [facility] ED Fall Risk Assessment (Adult) History of falling in the last 3 months, ay including since admission No falls in past 3 months (0 pts) Confusion or Disorientation No (0 pts) Intoxicated or Sedated No (0 pts) Impaired Gait No (0 pts) Mobility Assist Device Used No (0 pt) Altered Elimination No (0 pt) Score/Fall Risk Level 0 - 2 = Low Risk Oriented to surroundings, Maintained a safe environment, Educated pt \T\ family on fall prevention, incl call for assistance when getting out of bed. Abuse screen: Denies threats or abuse. Nutritional screening: No deficits noted. Tuberculosis screening: No symptoms or risk factors identified. Assessment: 17:00 Reassessment: Patient is alert, oriented x 3, equal unlabored respirations, skin aa5 warm/dry/pink. General: Appears uncomfortable. GI: Reports nausea. 21:30 Pain: Denies pain. ay 08/07 02:10 General: RN is unable to document pt vitals, assessments, and medications in [facility]. ay Called provider to re-look the orders but provider said he has no idea what was going on. All due medications given. Will document in [facility] when fixed. clutch specialist aware. 07:10 Reassessment: SEE [facility]. db Vital Signs: 08/06 16:01 BP 212 / 95; Pulse 103; Resp 19; Pulse Ox 100% on R/A; iw 22:00 BP 172 / 82; Pulse 93; Resp 16; Pulse Ox 97% ; ay 23:00 BP 182 / 85; Pulse 87; Resp 19; Pulse Ox 97% on R/A; ay 23:21 BP 215 / 121; Pulse 98; Resp 16; Pulse Ox 98% on R/A; ay 08/07 00:00 BP 169 / 77; Pulse 103; Resp 20; Pulse Ox 98% on R/A; ay 01:00 BP 163 / 81; Pulse 104; Resp 17; Pulse Ox 96% on R/A; ay ED Course: 08/06 15:44 Patient arrived in ED. cj3 15:49 Fatmata Salamanca MD is Attending Physician. sw6 16:04 Triage completed. iw 17:00 Initial lab(s) drawn, by me, sent to lab. Inserted saline lock: 22 gauge in right ld1 antecubital area, using aseptic technique. Blood collected. Flushed with 10 mL NS. 19:51 Kashmir Crowe MD is Hospitalizing Provider. sw6 22:58 Petty Hamilton RN is Primary Nurse. ay 08/07 16:42 No provider procedures requiring assistance completed. Patient admitted, IV remains in db place. 16:42 Patient has correct armband on for positive identification. Side rails up X 1. Provided db Education on: ADMISSION. Pulse ox on. NIBP on. Warm blanket given. Pillow given. Administered Medications: 08/06 17:16 Drug: Famotidine IVP 20 mg IVP once; dilute with 10 mL 0.9% NaCl; give over 2 minutes aa5 Route: IVP; Site: right antecubital; 17:16 CANCELLED (not available per pharmacyy): [id number] mg IVP once aa5 17:20 Drug: Promethazine IVP 25 mg IVP once Route: IVP; Site: right antecubital; aa5 20:07 Drug: Ondansetron IVP 4 mg IVP once; over 2 minutes Route: IVP; Site: right antecubital;ha1 Medication: 08/07 16:42 VIS not applicable for this client. db Point of Care Testing: Blood Glucose: 08/06 16:21 Blood Glucose: 305 mg/dL; iw Ranges: Outcome: 19:52 Decision to Hospitalize by Provider. [facility] 08/07 16:42 Admitted to Med/surg db Condition: stable Instructed on the need for admit, 16:43 Patient left the ED. iw Signatures: Regina Salamanca, RN RN Allison Enriquez RN RN aa5 Kenia Woodson RN RN ld1 Moni Douglas RN RN Pam Fuentes RN RN db Fatmata Salamanca MD MD sw6 Petty Hamilton RN Jing Fitzgerald 3
--- NOTE | 2024-08-06 19:52 | EDPHYS ---
Physician Documentation [facility] Name: Zeke Mackay Sr Age: 59 yrs Sex: Male : 1965 Arrival Date: 08/06/2024 Time: 15:42 Bed 20 Private MD: RAVIN Physician Fatmata Salamanca HPI: 08/06 16:16 This 59 yrs old Male presents to ER via Wheelchair with complaints of Sweats, sw6 Chills, Extreme Nausea. 16:16 The patient presents to the emergency department with nausea, vomiting. Onset: The sw6 symptoms/episode began/occurred yesterday. Possible causes: unknown. The patient has experienced similar episodes in the past, multiple times. The patient has been recently [facility] at [facility] Emergency Department, yesterday. The patient presents from home for evaluation for nausea and vomiting started yesterday. He does have a history of stomach cancer reports last chemotherapy several weeks ago. He does follow with MD Gimenez. He was post to have an appointment with his oncology team today but is unable to attend that appointment due to his symptoms. He was seen in the ER yesterday for similar complaints and reports he was discharged home where he continued to vomit. He has tried Zofran ODT as well as Phenergan tablets and reports they are not helping. No blood in his vomit. No diarrhea. No sick contacts. No recent trips or travel or antibiotics. No possible bad food exposure. He is not lightheaded or dizzy. He has made urine today. Here for evaluation.. 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 - Infectious Disease History:: Denies. - Social history:: Smoking status: Patient denies any tobacco usage or history of. ROS: 16:16 Constitutional: Negative for fever, chills, and weight loss, Cardiovascular: Negative sw6 for chest pain, palpitations, and edema, Respiratory: Negative for shortness of breath, cough, wheezing, and pleuritic chest pain, MS/Extremity: Negative for injury and deformity, 16:16 Abdomen/GI: Positive for nausea, vomiting, Negative for diarrhea, 16:16 All other systems are negative, Exam: 16:16 Constitutional: This is a well developed, well nourished patient who is awake, alert, sw6 and in no acute distress. Cardiovascular: Regular rate and rhythm with a normal S1 and S2. No gallops, murmurs, or rubs. Normal PMI, no JVD. No pulse deficits. Respiratory: Lungs have equal breath sounds bilaterally, clear to auscultation and percussion. No rales, rhonchi or wheezes noted. No increased work of breathing, no retractions or nasal flaring. Abdomen/GI: Soft, non-tender, with normal bowel sounds. No distension or tympany. No guarding or rebound. No evidence of tenderness throughout. 16:16 Skin: Warm, dry with normal turgor. Normal color with no rashes, no lesions, and no evidence of cellulitis. MS/ Extremity: Pulses equal, no cyanosis. Neurovascular intact. Full, normal range of motion. 16:16 ENT: Dry mucous membranes. Vital Signs: 16:01 BP 212 / 95; Pulse 103; Resp 19; Pulse Ox 100% on R/A; iw 22:00 BP 172 / 82; Pulse 93; Resp 16; Pulse Ox 97% ; ay 23:00 BP 182 / 85; Pulse 87; Resp 19; Pulse Ox 97% on R/A; ay 23:21 BP 215 / 121; Pulse 98; Resp 16; Pulse Ox 98% on R/A; ay 08/07 00:00 BP 169 / 77; Pulse 103; Resp 20; Pulse Ox 98% on R/A; ay 01:00 BP 163 / 81; Pulse 104; Resp 17; Pulse Ox 96% on R/A; ay MDM: 08/06 16:16 Differential diagnosis: Nonspecific abd pain, gastritis, viral gastroenteritis, sw6 gastroenteritis. Data reviewed: vital signs, nurses notes. 16:26 Medical Screening Exam initiated 19:52 ED course: The patient has not vomited since administration of antiemetics given sw6 earlier today but still has persistent nausea. His laboratory studies are unremarkable. Will provide the patient with additional antiemetics here in the ER. As he has failed most antiemetics yesterday we admit the patient to internal medicine for continued management. Spoke with Dr. Crowe and the patient was accepted for admission for continued management.. 08/06 16:36 Order name: CBC with Diff; Complete Time: 17:38 [facility] 08/06 17:38 Interpretation: Abnormal: Leukocytosis. [facility] 08/06 16:36 Order name: CMP; Complete Time: 17:38 [facility] 08/06 16:36 Order name: Lipase; Complete Time: 17:38 [facility] 08/06 16:36 Order name: Magnesium; Complete Time: 17:38 [facility] 08/06 16:44 Order name: Glucose, Ancillary Testing; Complete Time: 17:38 [facility] 08/06 20:40 Order name: Urinalysis w/ reflexes EDMS 08/06 20:43 Order name: Urinalysis w/ reflexes EDMS 08/06 20:43 Order name: CBC with Automated Diff EDMS 08/06 20:43 Order name: CBC with Automated Diff EDMS 08/06 20:43 Order name: Comprehensive Metabolic Panel EDMS 08/06 20:43 Order name: Comprehensive Metabolic Panel EDMS 08/07 05:19 Order name: CBC Smear Scan EDMS 08/07 08:23 Order name: Glucose, Ancillary Testing EDMS 08/07 12:11 Order name: Glucose, Ancillary Testing EDMS 08/06 16:36 Order name: IV Saline Lock; Complete Time: 17:01 [facility] 08/06 16:36 Order name: Labs collected and sent; Complete Time: 17:01 Administered Medications: 17:16 Drug: Famotidine IVP 20 mg IVP once; dilute with 10 mL 0.9% NaCl; give over 2 minutes aa5 Route: IVP; Site: right antecubital; 17:16 CANCELLED (not available per pharmacyy): [id number] mg IVP once aa5 17:20 Drug: Promethazine IVP 25 mg IVP once Route: IVP; Site: right antecubital; aa5 20:07 Drug: Ondansetron IVP 4 mg IVP once; over 2 minutes Route: IVP; Site: right antecubital;ha1 Point of Care Testing: Blood Glucose: 16:21 Blood Glucose: 305 mg/dL; iw Ranges: Critical Glucose Levels:Adult <50 mg/dl or >400 mg/dl <40 mg/dl or >180 mg/dl Disposition Summary: 08/06/24 19:52 Hospitalization Ordered Notes: Hospitalization Status: Observation [facility] Provider: Kashmir Crowe [place] Condition: Fair [facility] Problem: chronic sw6 Symptoms: are unchanged sw6 Bed/Room Type: Standard [facility] Location: Telemetry/MedSurg (observation)(08/07/24 14:48) hb Room Assignment: 405(08/07/24 14:48) Diagnosis - Nausea with vomiting, unspecified 6 Forms: - Medication Reconciliation Form sw6 - SBAR form sw6 - Leadership Thank You Letter 6 Signatures: Dispatcher [employer] EDMS Obdulia De La Paz RN RN kl Williams, Irene, RN RN Allison Almanzar RN RN aa5 Mary Kay Munson RN RN Moni Douglas RN RN ha1 Fatmata Salamanca MD MD sw6 Yakubu, Awudu, RN RN ay Corrections: (The following items were deleted from the chart) 16:36 16:36 CBC+H.LAB.BRZ ordered. EDMS EDMS 16:36 16:36 COMPREHENSIVE METABOLIC PANEL+C.LAB.BRZ ordered. EDMS EDMS 16:36 16:36 LIPASE+C.LAB.BRZ ordered. EDMS EDMS 16:36 16:36 MAGNESIUM+C.LAB.BRZ ordered. EDMS EDMS 17:16 16:36 Prochlorperazine IVP 10 mg IVP once ordered. [facility] aa5 17:16 17:16 Prochlorperazine IVP 10 mg IVP once ordered. 5 aa5 17:38 17:38 Leukocytosis. [facility]6 : 19:52 Telemetry/MedSurg (observation) 6 kl : 19:52 sw6 kl 08/07 14:48 08/06 21:23 BR ER HOLD kl hb 08/07 14:48 08/06 21:23 ERHOLD- kl hb
[2024-08-06] MEDS ORDERED: ONDANSETRON 4 MG/2 ML VIAL ONE (19:56)
--- NOTE | 2024-08-06 20:35 | P.HP ---
Certification for Inpatient Patient admitted to: Inpatient With expected LOS: >2 Midnights Practitioner: I am a practitioner with admitting privileges, knowledge of patient current condition, hospital course, and medical plan of care. Services: Services provided to patient in accordance with Admission requirements found in Title 42 Section 412.3 of the Code of Federal Regulations Patient History Date of Service: 08/07/24 Reason for admission: Intractable nausea and vomiting History of Present Illness: is 59 yrs old Male with past medical history of diabetes, hypertension, h ypothyroidism, neuropathy, and history of kidney cancer who was admitted for intractable nausea and vomiting which started yesterday. Patient had multiple episodes of nausea and vomiting. Patient has history of stomach cancer being treated at [facility]. Patient denies any diarrhea. No fever or chills. No sick contacts Patient could not tolerate anything p.o. Patient is being admitted for further management of intractable nausea and vomiting and dehydration. Allergies No Known Allergies Allergy (Verified 08/17/20 20:54) Home medications list reviewed: Yes Home Medications: Aspirin Chewable [Aspirin Chewable*] 1 tab PO DAILY 02/27/24 Atorvastatin Calcium 1 tab PO BEDTIME 02/27/24 Clopidogrel Bisulfate [Plavix] 1 tab PO DAILY 02/27/24 Metoprolol Tartrate 0.5 tab PO Q12H 02/27/24 Dapagliflozin Propanediol [Farxiga] 1 tab PO DAILY 02/28/24 Insulin Glargine/Lixisenatide [Soliqua 100 Unit-33 Mcg/ml Pen] 60 units SQ DAILY 02/28/24 Metformin HCl 2 tab PO DAILY 02/28/24 Amlodipine [Norvasc*] 5 mg PO DAILY #30 tab 02/29/24 Sucralfate [Carafate*] 10 ml PO ACHS PRN #1200 ml 02/29/24 Pantoprazole [Protonix Tab*] 40 mg PO BID 30 Days #60 tab 03/26/24 - Past Medical/Surgical History Diabetic: Yes Past Medical History: Reviewed- Non-Contributory -: Neuropathy -: Diabetes -: Hyperlipidemia -: Osteomyelitis -: AFib -: RENAL CELL CARCINOMA -: HTN Past Surgical History: Reviewed- Non-Contributory -: lap appy -: L wrist fx repair -: R hand fx repair -: c3-6 fused -: amputations to right pinky toe, left big toe Psychosocial/ Personal History: Patient is retired, lives with his and children - Family History Family History: Reviewed- Non-Contributory - Family History Father -: Diabetes, Other (see notes) Notes: Stroke - Social History Smoking Status: Former smoker Alcohol use: No CD- Drugs: Yes Caffeine use: Yes Review of Systems 10-point ROS is otherwise unremarkable Physical Examination - Vital Signs Temperature: 97.8 F Blood Pressure: 126/92 Pulse: 76 Respirations: 18 Pulse Ox (%): 94 - Physical Exam General: Alert, In no apparent distress, Cooperative HEENT: Atraumatic, Normocephalic Neck: Supple Respiratory: Clear to auscultation bilaterally Cardiovascular: Regular rate/rhythm, Normal S1 S2 Capillary refill: <2 Seconds Gastrointestinal: Soft and benign, W/out hepatosplenomegaly Musculoskeletal: No clubbing Integumentary: No rashes Neurological: Normal speech, Normal strength at 5/5 x4 extr Lymphatics: No axilla or inguinal lymphadenopathy - Studies Laboratory Data (last 24 hrs) 08/06/24 08/06/24 17:00 17:00 WBC 13.90 H Hgb 13.6 Hct 40.5 Plt Count 541 H Sodium 131 L Potassium 3.6 D BUN 32 H Creatinine 1.78 H Glucose 344 H Magnesium 1.8 Total Bilirubin 0.7 AST 12 L ALT 15 L Alkaline Phosphatase 156 H Lipase 1235 H Assessment and Plan - Plan Intractable nausea and vomiting Dehydration Hyponatremia Acute kidney injury Uncontrolled diabetes with hyperglycemia Leukocytosis Acute pancreatitis History of cancer being treated at [facility] Plan Monitor closely telemetry Started on aggressive hydration Zofran as needed Monitor renal parameters IV hydration Electrolytes monitor and replace accordingly GI/DVT prophylaxis Advanced directive full code Discharge Plan: Home Plan to discharge in: 48 Hours - Advance Directives Does patient have a Living Will: No Does patient have a Durable POA for Healthcare: No - Code Status/Comfort Care Code Status: Full Code Time Spent Managing Pts Care (In Minutes): 52
[2024-08-06] MEDS ORDERED: ACETAMINOPHEN 325 MG TABLET PO PRN (20:38)
[2024-08-06] MEDS: NA CHLORIDE 0.9% 1,000 ML IV SCH (21:00)
[2024-08-06] MEDS: HYDRALAZINE HCL 20 MG/ML VIAL IV PRN (23:30)
[2024-08-06] MEDS ORDERED: HYDRALAZINE HCL 20 MG/ML VIAL ONE (23:31)
[2024-08-06] MEDS ORDERED: NA CHLORIDE 0.9% 1,000 ML ONE (23:32)
[2024-08-06] MEDS: ONDANSETRON 4 MG/2 ML VIAL IV PRN (23:45)
[2024-08-06] MEDS: METOPROLOL TAR 25 MG TAB PO SCH (23:45)
[2024-08-07] MEDS ORDERED: METOPROLOL TAR 25 MG TAB ONE ×2 (01:24→13:22)
[2024-08-07] MEDS ORDERED: ONDANSETRON 4 MG/2 ML VIAL ONE ×3 (01:24→15:16)
[2024-08-07 03:40] VITALS: BMI 23.7
[2024-08-07 05:07] LABS: Absolute Lymphocytes (CBC) 0.7 K/uL (0.7-4.9); Absolute Monocytes 0.8 K/uL (0.1-1.3); Absolute Neutrophil 12.2 K/uL (1.8-8.0); Basophils % 0.3 % (0-1.3); Hematocrit 36.2 % (39.6-49.0); Hemoglobin 12.1 g/dL (13.6-17.9); Lymphocytes % 5.1 % (15.3-44.8); MCH 25.8 pg (27.0-35.0); MCHC 33.5 g/dL (32.0-36.0); MCV 76.9 fL (80-100); MPV 7.3 fL (7.6-11.3); Neutrophils % 88.6 % (41.7-73.7); Nucleated Red Blood Cells % 0.1 % (0-0); Platelets 408 thou/uL (152-406); RBC Red Blood Cell Count 4.71 M/uL (4.33-5.43); Red Cell Distribution Width 16.1 % (12.1-15.2)
[2024-08-07 05:18] LABS: Blood Morphology Comment NOT SEEN (NOT SEEN); Platelet Estimate INCR; White Blood Cell Scan OK (OK)
[2024-08-07 05:34] LABS: Albumin 3.3 g/dL (3.4-5.0); Albumin/Globulin Ratio 0.7 (1.1-1.8); Alkaline Phosphatase 121 U/L (45-117); Anion Gap 11.1 mEq/L (5.0-15.0); BUN Blood Urea Nitrogen 32 mg/dL (7-18); Bicarbonate 30 mEq/L (21-32); Bilirubin Total 0.4 mg/dL (0.2-1.0); Globulin 4.5 g/dL (2.3-3.5); Glomerular Filtration Rate 58 ml/min (=/>90); Glucose Level 319 mg/dL (74-106); Potassium 4.1 mEq/L (3.5-5.1); Protein, Total 7.8 g/dL (6.4-8.2); Sodium Level 139 mEq/L (136-145)
[2024-08-07 05:45] LABS: ALT/SGPT < 14 U/L (16-61); AST/SGOT < 10 U/L (15-37)
[2024-08-07] MEDS ORDERED: HYDRALAZINE HCL 20 MG/ML VIAL ONE ×2 (08:52→15:16)
[2024-08-07] MEDS: HOME MED 1 EA UNK (Dapagliflozin Propanediol [Farxiga] 10 MG Tablet) PO SCH (09:00)
[2024-08-07] MEDS: INSULIN GLARGINE 100 UNIT/ML SQ SCH (09:00)
[2024-08-07] MEDS: ENOXAPARIN 40 MG/0.4 ML SQ SCH (09:00)
[2024-08-07] MEDS: CLOPIDOGREL 75 MG TABLET PO SCH (09:00)
[2024-08-07] MEDS ORDERED: INSULIN GLARGINE 100 UNITS/ML SQ SCH (09:00)
[2024-08-07] MEDS ORDERED: NA CHLORIDE 0.9% 1,000 ML ONE (10:01)
[2024-08-07] MEDS: PROMETHAZINE INJ 25 MG/ML AMP IV ONE (10:27)
[2024-08-07] MEDS ORDERED: PANTOPRAZOLE 40MG TABLET PO ONE (10:39)
[2024-08-07] MEDS ORDERED: AMLODIPINE 5 MG TAB ONE (10:40)
[2024-08-07] MEDS ORDERED: ASPIRIN 81 MG CHEWABLE TABLET ONE (10:40)
[2024-08-07] MEDS ORDERED: CLOPIDOGREL 75 MG TABLET ONE (10:40)
[2024-08-07] MEDS ORDERED: PROMETHAZINE INJ 25 MG/ML AMP ONE (10:40)
[2024-08-07] MEDS ORDERED: ENOXAPARIN 40 MG/0.4 ML SQ ONE (10:42)
[2024-08-07] MEDS ORDERED: INSULIN GLARGINE 100 UNIT/ML SQ ONE (10:42)
[2024-08-07] MEDS: ASPIRIN 81 MG CHEWABLE TABLET PO SCH (11:00)
[2024-08-07] MEDS: AMLODIPINE 5 MG TAB PO SCH (11:00)
[2024-08-07] MEDS: PANTOPRAZOLE 40MG TABLET PO SCH (11:00)
--- NOTE | 2024-08-07 16:09 | P.PN ---
Subjective Date of Service: 08/07/24 Chief Complaint: Intractable nausea and vomiting Patient continues to experience nausea and vomiting. He denies any abdominal pain however he reports feeling thirsty. No recorded fever. Physical Examination - Vital Signs Temperature: 98.2 F Blood Pressure: 176/71 Pulse: 79 Respirations: 16 Pulse Ox (%): 96 - Studies Laboratory Data (last 24 hrs) 08/06/24 08/06/24 17:00 17:00 WBC 13.90 H Hgb 13.6 Hct 40.5 Plt Count 541 H Sodium 131 L Potassium 3.6 D BUN 32 H Creatinine 1.78 H Glucose 344 H Magnesium 1.8 Total Bilirubin 0.7 AST 12 L ALT 15 L Alkaline Phosphatase 156 H Lipase 1235 H Assessment And Plan - Plan Physical examination General: Alert and oriented x3, moderate distress. HEENT: Conjunctiva not pale, anicteric sclera Neck: Supple, no elevated JVD Heart: Heart sounds 1 and 2 normal, regular rhythm, normal rate, no pedal edema Lungs: Clear to auscultation bilaterally, adequate breath sounds bilaterally, no rhonchi or crackles. Abdomen: Soft, nondistended, nontender, normal bowel sounds. Extremities: No tenderness, no deformity Skin: Normal skin turgor, no rash, no nodules or ulcers. Neuro: No focal motor deficit. Normal speech. Psychiatry: Normal mood, no agitation. Diagnosis Intractable nausea and vomiting Dehydration Hyponatremia Acute kidney injury Uncontrolled diabetes with hyperglycemia Leukocytosis Acute pancreatitis History of cancer being treated at [facility] Plan Intractable nausea and vomiting History of stomach cancer Supportive measures with IV hydration Antiemetics-Zofran and Phenergan as needed Trial of sucralfate Continue oral Protonix Clear liquid diet Acute kidney injury Prerenal secondary to vomiting. IV hydration Monitor renal function. Leukocytosis Likely reactive Monitor CBC. Acute pancreatitis Abnormal LFTs Supportive measures Clear liquid diet. Daily lipase level checks. Hyponatremia Resolved with IV NS. Monitor BMP. DM type II With hyperglycemia. Semglee and insulin sliding scale for glucose management DVT prophylaxis: Lovenox Advanced directive: Full code
[2024-08-07] MEDS: PROMETHAZINE INJ 25 MG/ML AMP IV PRN (16:42)
[2024-08-07] MEDS: SUCRALFATE 1GM/10ML UCUP PO SCH (16:42)
[2024-08-07] MEDS: CEFTRIAXONE 1,000 MG in NA CHLORIDE 0.9% 50 ML IVPB SCH (16:42)
[2024-08-07] MEDS: ATORVASTATIN 40 MG TAB PO SCH (20:25)
[2024-08-08 06:21] LABS: Absolute Lymphocytes (CBC) 1.3 K/uL (0.7-4.9); Absolute Monocytes 0.7 K/uL (0.1-1.3); Absolute Neutrophil 9.2 K/uL (1.8-8.0); Basophils % 0.4 % (0-1.3); Hematocrit 35.4 % (39.6-49.0); Hemoglobin 11.9 g/dL (13.6-17.9); Lymphocytes % 11.3 % (15.3-44.8); MCH 26.1 pg (27.0-35.0); MCHC 33.7 g/dL (32.0-36.0); MCV 77.4 fL (80-100); MPV 7.3 fL (7.6-11.3); Monocytes % 6.2 % (3.3-12.3); Neutrophils % 82.1 % (41.7-73.7); Platelets 372 thou/uL (152-406); RBC Red Blood Cell Count 4.58 M/uL (4.33-5.43); Red Cell Distribution Width 16.1 % (12.1-15.2)
[2024-08-08 06:39] LABS: AST/SGOT 13 U/L (15-37); Albumin 3.1 g/dL (3.4-5.0); Albumin/Globulin Ratio 0.7 (1.1-1.8); Alkaline Phosphatase 117 U/L (45-117); BUN Blood Urea Nitrogen 33 mg/dL (7-18); Bicarbonate 27 mEq/L (21-32); Bilirubin Total 0.4 mg/dL (0.2-1.0); Globulin 4.6 g/dL (2.3-3.5); Glomerular Filtration Rate 72 ml/min (=/>90); Glucose Level 160 mg/dL (74-106); Lipase 27 U/L (13-75); Protein, Total 7.7 g/dL (6.4-8.2); Sodium Level 137 mEq/L (136-145)
[2024-08-08 06:43] LABS: ALT/SGPT < 14 U/L (16-61)
[2024-08-08] MEDS: KCL 20 MEQ/100 mL IVPB 20 MEQ/100 ML BAG IV SCH (09:59)
[2024-08-08] MEDS: HALOPERIDOL LACT 5 MG/ML INJ IV ONE (11:48)
[2024-08-08] MEDS: HYDRALAZINE HCL 20 MG/ML VIAL IV ONE (12:40)
[2024-08-08] MEDS: CLONIDINE 0.1 MG/PATCH TD SCH (12:41)
--- NOTE | 2024-08-08 17:39 | P.PN ---
Subjective Date of Service: 08/08/24 Chief Complaint: Intractable nausea and vomiting Patient with persistent nausea and vomiting. He denies any abdominal pain. Physical Examination - Vital Signs Temperature: 98 F Blood Pressure: 187/82 Pulse: 92 Respirations: 15 Pulse Ox (%): 97 - Studies Laboratory Data (last 24 hrs) 08/08/24 08/08/24 05:42 05:42 WBC 11.20 H Hgb 11.9 L Hct 35.4 L Plt Count 372 Sodium 137 Potassium 3.0 L D BUN 33 H Creatinine 1.16 Glucose 160 H Total Bilirubin 0.4 AST 13 L ALT < 14 L Alkaline Phosphatase 117 Lipase 27 Assessment And Plan - Plan Physical examination General: Alert and oriented x3, moderate distress. HEENT: Anicteric sclera Heart: Heart sounds 1 and 2 normal, regular rhythm, normal rate, no pedal edema Lungs: Clear to auscultation bilaterally, adequate breath sounds bilaterally, no rhonchi or crackles. Abdomen: Soft, nondistended, nontender, normal bowel sounds. Extremities: No tenderness, no deformity Skin: Normal skin turgor, no rash. Neuro: No focal motor deficit. Normal speech. Psychiatry: Dysphoric. Diagnosis Intractable nausea and vomiting Dehydration Hyponatremia Acute kidney injury Uncontrolled diabetes with hyperglycemia Leukocytosis Acute pancreatitis History of cancer being treated at [facility] Hypertensive urgency Plan Intractable nausea and vomiting History of stomach cancer Supportive measures with IV hydration Antiemetics-Zofran and Phenergan as needed Trial of sucralfate Continue oral Protonix Clear liquid diet Acute kidney injury Prerenal secondary to vomiting. IV hydration Monitor renal function. Leukocytosis Likely reactive Monitor CBC. Acute pancreatitis Abnormal LFTs Supportive measures Clear liquid diet. Daily lipase level checks. Hyponatremia Resolved with IV NS. Monitor BMP. DM type II With hyperglycemia. Semglee and insulin sliding scale for glucose management. 08/08 Patient with persistent nausea vomiting. Titrate current antiemetics, increase promethazine to 25 mg IV every 6 Trial of Haldol IV. Will obtain CT abdomen pelvis. Continue Protonix and sucralfate MARIAH resolved with IV hydration. Leukocytosis improved. Correct hypokalemia with IV potassium. Monitor BMP and optimize electrolytes as needed. Hydralazine IV as needed for BP spikes Clonidine patch as patient is not tolerating p.o. Symptom control. DVT prophylaxis: Lovenox Advanced directive: Full code
--- NOTE | 2024-08-08 18:41 | RAD REPORT ---
EXAMINATION: CT ABDOMEN AND PELVIS WITHOUT CONTRAST CLINICAL INDICATION: Abdominal pain. Intractable vomiting TECHNIQUE: CT abdomen and pelvis was performed, as per department protocol. IV contrast and oral was not administered.Axial, sagittal and coronal reconstructions were obtained. One or more of the following dose reduction techniques were used: Automated exposure control, adjustment of the mA and/o r kV according to the patient size, and/or iterative reconstruction. Unless otherwise specified, incidental findings do not require dedicated imaging follow-up. [id number]. COMPARISON: July 31, 2024 FINDINGS: The lack of intravenous and oral contrast limits evaluation of solid organs, vessels and bowel. Cholelithiasis. Gallbladder wall not thickened. Wall of the distal esophagus appears thickened. Partial left nephrectomy. The liver, spleen, pancreas, adrenals and right kidney appear grossly normal No evidence of diverticulitis Mild compression deformities of T11, L1 and L3 vertebral bodies unchanged. IMPRESSION: Cholelithiasis without evidence of cholecystitis Wall of the distal esophagus appears thickened which could indicate esophagitis. Bladder distention Bladder distention
[2024-08-08] MEDS: PROMETHAZINE INJ 25 MG/ML AMP IV PRN (19:02)
[2024-08-09] MEDS: ONDANSETRON 4 MG/2 ML VIAL IV PRN (02:22)
[2024-08-09 06:44] LABS: Phosphorus 2.6 mg/dL (2.5-4.9)
[2024-08-09] MEDS: KCL 20 MEQ/100 mL IVPB 20 MEQ/100 ML BAG IV SCH (08:06)
[2024-08-09] MEDS: DIPHENHYDRAMINE 50 MG/ML VIAL IV PRN (11:47)
[2024-08-09] MEDS: METOCLOPRAMIDE 10 MG/2mL INJ IV PRN (11:48)
[2024-08-09] MEDS: dexAMETHasone 4 MG/ML VIAL IV SCH (11:48)
[2024-08-09] MEDS: LABETALOL 20 MG/4ML SYRINGE IV ONE (12:20)
--- NOTE | 2024-08-09 16:50 | P.PN ---
Subjective Date of Service: 08/09/24 Chief Complaint: Intractable nausea and vomiting Patient continued to experience persistent dry heaving. He has not tolerated anything p.o. He denies any abdominal pain. Physical Examination - Vital Signs Temperature: 98.1 F Blood Pressure: 159/71 Pulse: 93 Respirations: 16 Pulse Ox (%): 97 Assessment And Plan - Plan Physical examination General: Alert and oriented x3, moderate distress. Heart: Heart sounds 1 and 2 normal, regular rhythm, normal rate, no pedal edema Lungs: Clear to auscultation bilaterally, adequate breath sounds bilaterally, no rhonchi or crackles. Abdomen: Soft, nondistended, nontender, normal bowel sounds. Extremities: No tenderness, no deformity Skin: Normal skin turgor, no rash. Neuro: No focal motor deficit. Normal speech. Psychiatry: Dysphoric. Diagnosis Intractable nausea and vomiting Dehydration Hyponatremia Acute kidney injury Uncontrolled diabetes with hyperglycemia Leukocytosis Acute pancreatitis History of cancer being treated at [facility] Hypertensive urgency Plan Intractable nausea and vomiting History of stomach cancer Supportive measures with IV hydration Antiemetics-Zofran and Phenergan as needed Trial of sucralfate Continue oral Protonix Clear liquid diet Acute kidney injury Prerenal secondary to vomiting. IV hydration Monitor renal function. Leukocytosis Likely reactive Monitor CBC. Acute pancreatitis Abnormal LFTs Supportive measures Clear liquid diet. Daily lipase level checks. Hyponatremia Resolved with IV NS. Monitor BMP. DM type II With hyperglycemia. Semglee and insulin sliding scale for glucose management. 08/08 Patient with persistent nausea vomiting. Titrate current antiemetics, increase promethazine to 25 mg IV every 6 Trial of Haldol IV. Will obtain CT abdomen pelvis. Continue Protonix and sucralfate MARIAH resolved with IV hydration. Leukocytosis improved. Correct hypokalemia with IV potassium. Monitor BMP and optimize electrolytes as needed. Hydralazine IV as needed for BP spikes Clonidine patch as patient is not tolerating p.o. Symptom control. 08/09 Patient has persistent dry heaving. CT abdomen pelvis results reviewed-no obstruction. No definite mass identified. Intractable nausea likely secondary to his history of gastric cancer. Continue Protonix and sucralfate Trial of antiemetic cocktail-Reglan, Benadryl and dexamethasone Continue IV hydration Monitor and optimize electrolytes Hydralazine and labetalol as needed for BP spike Clonidine patch as patient is not tolerating p.o. Insulin sliding scale for glucose management. Hold long-acting insulin. DVT prophylaxis: Lovenox Advanced directive: Full code
[2024-08-09] MEDS: D5NS KCL 20MEQ 20 MEQ/1,000 ML BAG IV SCH (17:04)
[2024-08-10 09:31] LABS: Anion Gap 8.9 mEq/L (5.0-15.0); Potassium 3.9 mEq/L (3.5-5.1)
[2024-08-10] MEDS: POTASSIUM CL SA 10 MEQ TAB PO ONE (09:54)
[2024-08-10] MEDS: INSULIN REGULAR (HUMAN) 100 UNIT/ML SQ SCH (11:35)
--- NOTE | 2024-08-10 12:03 | EKG ---
Test Date: 2024-08-08 Test Time: 19:05:52 Accounts Receivable Executive: YENIL MEASUREMENT RESULTS: Intervals: Rate: 89 DE: 146 QRSD: 82 QT: 336 QTc: 408 [place]: P: 52 DE: 146 QRS: 13 T: 259 INTERPRETIVE STATEMENTS: Sinus rhythm with marked sinus arrhythmia Nonspecific T wave abnormality Abnormal ECG Compared to ECG 07/31/2024 14:42:01 T-wave abnormality now present Myocardial infarct finding no longer present Electronically Signed On 08-10-24 12:00:08 CDT by Lucas Huang
[2024-08-10] MEDS: SILVER SULFADIAZINE 1% 25 GM TOP SCH (14:03)
--- NOTE | 2024-08-10 16:03 | RAD REPORT ---
EXAMINATION:Lower Extremity Artery Uni Ltd CLINICAL INDICATION: Male, 59 years old. blood flow RIGHT TECHNIQUE: Arterial duplex ultrasound was performed of the right lower extremity with real-time, colo r-flow, and spectral wave Doppler evaluation. Ankle brachial indices were performed. COMPARISON: No prior exam. FINDINGS: Right common femoral artery and superficial femoral artery are triphasic. Right popliteal artery is b iphasic. Right posterior tibial artery and dorsalis fetus are monophasic. No occlusion. IMPRESSION: Moderate distal peripheral vascular disease. No occlusion is present.
--- NOTE | 2024-08-10 18:38 | P.PN ---
Subjective Date of Service: 08/10/24 Chief Complaint: Intractable nausea and vomiting Patient states his nausea is much better today He denies any abdominal pain. No reported fever. Physical Examination - Vital Signs Temperature: 98.3 F Blood Pressure: 172/84 Pulse: 60 Respirations: 16 Pulse Ox (%): 99 Assessment And Plan - Plan Physical examination General: Alert and oriented x3, NAD. Heart: Heart sounds 1 and 2 normal, regular rhythm, normal rate, no pedal edema Lungs: Clear to auscultation bilaterally, adequate breath sounds bilaterally, no rhonchi or crackles. Abdomen: Soft, nondistended, nontender, normal bowel sounds. Extremities: No tenderness, no deformity Skin: Right lateral malleolus shallow ulcer with scabbing, quite shaped ulcer with surrounding callus skin-sole of the right foot. Neuro: No focal motor deficit. Normal speech. Psychiatry: Normal mood, no agitation Diagnosis Intractable nausea and vomiting Dehydration Hyponatremia Acute kidney injury Uncontrolled diabetes with hyperglycemia Leukocytosis Acute pancreatitis History of cancer being treated at [facility] Hypertensive urgency Right diabetic foot ulcer. Plan Intractable nausea and vomiting History of stomach cancer Supportive measures with IV hydration Antiemetics-Zofran and Phenergan as needed Trial of sucralfate Continue oral Protonix Clear liquid diet Acute kidney injury Prerenal secondary to vomiting. IV hydration Monitor renal function. Leukocytosis Likely reactive Monitor CBC. Acute pancreatitis Abnormal LFTs Supportive measures Clear liquid diet. Daily lipase level checks. Hyponatremia Resolved with IV NS. Monitor BMP. DM type II With hyperglycemia. Semglee and insulin sliding scale for glucose management. 08/08 Patient with persistent nausea vomiting. Titrate current antiemetics, increase promethazine to 25 mg IV every 6 Trial of Haldol IV. Will obtain CT abdomen pelvis. Continue Protonix and sucralfate MARIAH resolved with IV hydration. Leukocytosis improved. Correct hypokalemia with IV potassium. Monitor BMP and optimize electrolytes as needed. Hydralazine IV as needed for BP spikes Clonidine patch as patient is not tolerating p.o. Symptom control. 08/09 Patient has persistent dry heaving. CT abdomen pelvis results reviewed-no obstruction. No definite mass identified. Intractable nausea likely secondary to his history of gastric cancer. Continue Protonix and sucralfate Trial of antiemetic cocktail-Reglan, Benadryl and dexamethasone Continue IV hydration Monitor and optimize electrolytes Hydralazine and labetalol as needed for BP spike Clonidine patch as patient is not tolerating p.o. Insulin sliding scale for glucose management. Hold long-acting insulin. 08/10 Patient reports improvement in his nausea. Lipase level normalized. Urinalysis still pending. Continue antiemetic cocktail-Reglan, Benadryl, dexamethasone, sucralfate. Advance diet as tolerated Resume home antihypertensives. Labetalol and hydralazine as needed for BP spikes. Monitor and optimize electrolytes Continue IV fluid Start antibiotics for possible lower extremity ulcer General Surgery Dr. Love consulted and is planning debridement tomorrow. Continue to hold long-acting insulin until oral intake improves. Insulin sliding scale for glucose management. DVT prophylaxis: Lovenox Advanced directive: Full code
[2024-08-11 09:01] LABS: Absolute Lymphocytes (CBC) 0.7 K/uL (0.7-4.9); Absolute Monocytes 0.6 K/uL (0.1-1.3); Absolute Neutrophil 5.1 K/uL (1.8-8.0); Basophils % 0.2 % (0-1.3); Hematocrit 33.4 % (39.6-49.0); Hemoglobin 11.3 g/dL (13.6-17.9); Lymphocytes % 10.7 % (15.3-44.8); MCHC 33.8 g/dL (32.0-36.0); MCV 77.1 fL (80-100); MPV 7.4 fL (7.6-11.3); Monocytes % 9.2 % (3.3-12.3); Neutrophils % 79.9 % (41.7-73.7); Platelets 261 thou/uL (152-406); RBC Red Blood Cell Count 4.33 M/uL (4.33-5.43); Red Cell Distribution Width 15.8 % (12.1-15.2)
[2024-08-11 09:11] LABS: Anion Gap 8.9 mEq/L (5.0-15.0); Potassium 3.9 mEq/L (3.5-5.1)
[2024-08-11] MEDS: LIDOCAINE HCL/EPINEPHRINE 20 ML MDV ONE (10:46)
--- NOTE | 2024-08-11 10:50 | P.PN ---
Date of Service: 08/11/24 Subjective: ROS: 10 point ROS as noted above, otherwise negative Physical Exam: GEN: Alert, oriented, NAD CV: Regular rate and rhythm, no edema Pulm: Nonlabored respirations on room air, clear bilaterally ABD: soft, nontender, nondistended Integumentary: Right lateral malleolus shallow ulcer with scabbing, quite shaped ulcer with surrounding callus skin-sole of the right foot. Neuro: Normal speech, normal affect Problem List: Intractable nausea and vomiting Acute pancreatitis History of stomach cancer being treated at [facility] Right diabetic foot ulcer MARIAH secondary to dehydration Hyponatremia Uncontrolled diabetes with hyperglycemia Hypertensive urgency Intractable nausea and vomiting Acute pancreatitis History of stomach cancer being treated at [facility] on admission, presents with intractable nausea/vomiting for ~1 day. Unable to tolerate anything orally on admission. PRN zofran, reglan, phenergan, carafate 08/07 - IV rocephin (08/07-) 08/08 - Lipase resolved with IV hydration. 1235 -> 27 08/09 - Labs improved but continues with nausea/vomiting Reglan, benadryl, decadron added CT abdomen without findings to suggest obstructions. No definite mass. 08/10 - Feels nausea is improving slowly. Continue oral Protonix BID Lipase remains wnl 08/11 - Nausea continues but not as severe. nausea possibly related to gastric cancer decadron decreased to BID from q6h Right diabetic foot ulcer 08/10 - Dr. Love consulted to jami for possible I&D wound photos in EMR 08/11 - NPO for tentative I&D wound care per surgery on empiric rocephin () MARIAH Hyponatremia Prerenal secondary to vomiting. Continue IV fluids Continue to monitor renal function. Monitor and replete electrolytes as needed IDDM2 accu-cheks, SSI continue semglee, titrate as needed VTE: Lovenox held for possible surgery Code: Full Dispo: Home Pending surgical recs, I&D Time Spent Managing Pts Care (In Minutes): 55
[2024-08-11] MEDS: NA CHLORIDE 0.9% 1,000 ML ONE (11:15)
[2024-08-11] MEDS ORDERED: LIDOCAINE 2% MPF 5 ML VIAL ONE (11:21)
[2024-08-11] MEDS ORDERED: propofoL 200 MG/20 ML VIAL IV ONE (11:21)
[2024-08-11] MEDS ORDERED: ONDANSETRON 4 MG/2 ML VIAL ONE (11:21)
[2024-08-11] MEDS ORDERED: MIDAZOLAM HCL 2 MG/2 ML INJ ONE (11:22)
[2024-08-11] MEDS ORDERED: FENTANYL CITR 100 MCG/2 ML ONE (11:22)
--- NOTE | 2024-08-11 12:14 | P.OP ---
Preoperative diagnosis: RIGHT Foot Diabetic Wounds Postoperative diagnosis: RIGHT Foot Diabetic Wounds Primary procedure: Debridement of Multiple Wounds of RIGHT Foot, Plantar / Lateral Anesthesia: GETA Estimated blood loss: <5cc Specimen: Debridement Tissue Findings: Multiple Wounds Stage I/II of R Foot, ~ lateral 7cm x 4cm, plantar ~2cm Complications: None Transferred to: Recovery Room Condition: Good
[2024-08-11 12:47] VITALS: O2SAT 99
--- NOTE | 2024-08-11 14:43 | OP ---
Date of Procedure: 08/11/2024 Surgeon: Ancelmo Love MD, Preoperative Diagnosis: Right foot diabetic wounds. Postoperative Diagnosis: Right foot diabetic wounds. Procedure Performed: Debridement of multiple wounds of the right foot plantar and lateral aspect. Anesthesia: General endotracheal. Estimated Blood Loss: Less than 5 cc. Specimen Removed: Debridement tissue. Findings: Multiple wounds that are in stage I into the right foot, predominantly on the lateral aspe ct near the malleolus approximately 7 cm x 4 cm stage I. Plantar wound was stage II, which is approx imately 2 cm round. Complications: None. Disposition: The patient was transferred to recovery room in good condition. Procedure In Detail: After informed consent was obtained, patient was brought to the operating room, prepped and draped in the usual sterile fashion. After adequate anesthesia was achieved, I made a circular incision around a plantar wound near the midportion of the foot. One obvious wound was appr eciated, at this point. This was taken down into subcutaneous tissues approximately down to stage II depth. Ultimately this was sent off for pathologic examination. The area was copiously irrigated. Hemostasis was achieved with minimal electrocautery. The wound was then packed with Vashe soaked ga uze. I then performed debridement of the lateral aspect of the right foot along the malleolus area d own through the subcutaneous tissue stage I depth level for size as described above. All nonviable t issue was removed, sent off for pathologic examination as debridement tissue. The area was copiously irrigated. Hemostasis was achieved with minimal electrocautery. The wound was then rewrapped with Vashe soaked gauze and a sterile dressing placed over top. The patient tolerated the procedure well without incident or complication, transferred to PACU in good condition. All counts were correct at the end of the case. TK/MODL Voice ID: [id number] Report ID: [id number]
[2024-08-11 16:03] VITALS: BP 152/60; TEMP 98
[2024-08-11] MEDS ORDERED: dexAMETHasone 4 MG/ML VIAL IV SCH (17:00)
[2024-08-11] MEDS ORDERED: ENSURE CLEAR 200 ML CAN PO SCH (21:00)
--- NOTE | 2024-08-12 06:39 | P.DS ---
Admission Date: 08/08/24 Discharge Date: 08/11/24 Disposition: ROUTINE DISCHARGE Discharge Condition: GOOD Reason for Admission: Intractable nausea and vomiting Consultations: General surgery - Dr Love Brief History of Present Illness: 59yo M, PMH: diabetes, hypertension, hypothyroidism, neuropathy, and history of kidney cancer Patient was admitted for intractable nausea and vomiting which started yes terday. Patient had multiple episodes of nausea and vomiting. Patient has history of stomach cancer being treated at [facility]. Patient denies any diarrhea. No fever or chills. No sick contacts. Patient could not tolerate anything p.o. Patient is being admitted for further management of intractable nausea and vomiting and dehydration. Hospital Course: Problem List: Intractable nausea and vomiting secondary to gastric cancer Acute pancreatitis, resolved History of stomach cancer being treated at [facility] Right diabetic foot ulcer, s/p I&D (08/10) MARIAH secondary to dehydration Hyponatremia Uncontrolled diabetes with hyperglycemia Hypertensive urgency Physician discharge instructions: Patient presented with intractable nausea/vomiting for ~1 day secondary to gastric cancer. There was initial concern for possible pancreatitis, with Lipase was on admission 1235 which quickly resolved within 24 hours with IV hydration. CT abdomen without findings to suggest obstructions. Labs improved within 24 hours however still continued with nausea/vomiting. He was empirically covered with Rocephin. Patient received zofran, reglan, phenergan, carafate, and decadron while hospitalized. He did have improvement with this regimen and being selective in what he would eat. He felt better and was ready for discharge. Dr. Love was consulted to eval right foot diabetic ulcer for possible I&D and underwent I&D on 08/11. Follow up with Dr. Love in office in 1 week for continued management. Local wound care per surgery. Medications: reglan as needed for nausea decadron augmentin x 5 days Follow up: PCP 3-[address] Love in wound healing center in 1 week. Please call to schedule / confirm appointments Wound care instructions per Dr. Love: Daily dressing changes: Remove all dressings irrigate area with sterile water, then apply Nae Ag over affected areas moistened with sterile water then apply damp gauze over top then wrap with dry Kerlix and Raheel bandage elevate pressure reduction strategies nonweightbearing to foot. Physical Exam: GEN: Alert, oriented, NAD CV: Regular rate and rhythm, no edema Pulm: Nonlabored respirations on room air, clear bilaterally ABD: soft, nontender, nondistended Integumentary: Right foot with dressing in place c/d/i Neuro: Normal speech, normal affect Vital Signs/Physical Exam: Temp Pulse Resp BP Pulse Ox 98 F 66 18 152/60 H 96 08/11/24 16:00 08/11/24 16:00 08/11/24 16:00 08/11/24 16:00 08/11/24 16:00 Laboratory Data at Discharge: WBC 6.40 thou/uL (4.3-10.9) 08/11/24 08:48 Hgb 11.3 g/dL (13.6-17.9) L 08/11/24 08:48 Hct 33.4 % (39.6-49.0) L 08/11/24 08:48 Plt Count 261 thou/uL (152-406) 08/11/24 08:48 Sodium 138 mEq/L (136-145) 08/11/24 08:48 Potassium 3.9 mEq/L (3.5-5.1) 08/11/24 08:48 BUN 18 mg/dL (7-18) 08/11/24 08:48 Creatinine 0.85 mg/dL (0.70-1.30) 08/11/24 08:48 Glucose 130 mg/dL (74-106) H 08/11/24 08:48 Phosphorus 2.6 mg/dL (2.5-4.9) 08/09/24 05:37 Magnesium 2.0 mg/dL (1.6-2.4) 08/09/24 05:37 Total Bilirubin 0.4 mg/dL (0.2-1.0) 08/08/24 05:42 AST 13 U/L (15-37) L 08/08/24 05:42 ALT < 14 U/L (16-61) L 08/08/24 05:42 Alkaline Phosphatase 117 U/L (45-117) 08/08/24 05:42 Lipase 38 U/L (13-75) 08/10/24 09:04 Home Medications: Aspirin Chewable [Aspirin Chewable*] 1 tab PO DAILY 02/27/24 Atorvastatin Calcium 1 tab PO BEDTIME 02/27/24 Metoprolol Tartrate 0.5 tab PO Q12H 02/27/24 Dapagliflozin Propanediol [Farxiga] 1 tab PO DAILY 02/28/24 Insulin Glargine/Lixisenatide [Soliqua 100 Unit-33 Mcg/ml Pen] 60 units SQ DAILY 02/28/24 Metformin HCl 2 tab PO DAILY 02/28/24 Amlodipine [Norvasc*] 5 mg PO DAILY #30 tab 02/29/24 Sucralfate [Carafate*] 10 ml PO ACHS PRN #1200 ml 02/29/24 Pantoprazole [Protonix Tab*] 40 mg PO BID 30 Days #60 tab 03/26/24 Amox/Clavulanate [Augmentin 875-125 Tab] 1 tab PO BID 5 Days #10 tab 08/11/24 Metoclopramide HCl [Reglan] 5 mg PO Q8H PRN #21 tab 08/11/24 dexAMETHasone [Dexamethasone] 2 tab PO BID 5 Days #20 tab 08/11/24 New Medications: Amox/Clavulanate [Augmentin 875-125 Tab] 1 tab PO BID 5 Days #10 tab dexAMETHasone [Dexamethasone] 2 tab PO BID 5 Days #20 tab Metoclopramide HCl [Reglan] 5 mg PO Q8H PRN #21 tab PRN Reason: Nausea / Vomiting Physician Discharge Instructions: Physician discharge instructions: Patient presented with intractable nausea/vomiting for ~1 day secondary to gastric cancer. There was initial concern for possible pancreatitis, with Lipase was on admission 1235 which quickly resolved within 24 hours with IV hydration. CT abdomen without findings to suggest obstructions. Labs improved within 24 hours however still continued with nausea/vomiting. He was empirically covered with Rocephin. Patient received zofran, reglan, phenergan, carafate, and decadron while hospitalized. He did have improvement with this regimen and being selective in what he would eat. He felt better and was ready for discharge. Dr. Love was consulted to eval right foot diabetic ulcer for possible I&D and underwent I&D on 08/11. Follow up with Dr. Love in office in 1 week for continued management. Local wound care per surgery. Medications: reglan as needed for nausea decadron augmentin x 5 days Follow up: PCP 3-[address] Love in wound healing center in 1 week. Please call to schedule / confirm appointments Wound care instructions per Dr. Love: Daily dressing changes: Remove all dressings irrigate area with sterile water, then apply Nae Ag over affected areas moistened with sterile water then apply damp gauze over top then wrap with dry Kerlix and Raheel bandage elevate pressure reduction strategies nonweightbearing to foot. Followup: Ancelmo Love MD [ACTIVE - CAN ADMIT] - 1 Week (In wound healing center- [phone]) NONE,NONE [UNKNOWN] - Time spent managing pt's care (in minutes): 45
== END 2024-08-11 16:43 | disposition home or self-care (01) | DRG 356 ==
LOC: ER 15:42 → ERHOLD 08-07 02:32 → INTOOBSV 08-07 02:32 → 4TH 08-07 16:22 → OBSVTOIN 08-08 15:35
PROVIDERS: ADMIT Family Medicine; ATTEND Hospitalist
PROC: 0JBQ0ZZ Excision of Right Foot Subcutaneous Tissue and Fascia, Open Approach (ICD-10-PCS; principal; 2024-08-11 13:30)
DX: C78.89 Secondary malignant neoplasm of other digestive organs (principal); K85.90 Acute pancreatitis without necrosis or infection, unspecified; N17.9 Acute kidney failure, unspecified; E87.1 Hypo-osmolality and hyponatremia; E86.0 Dehydration; E87.6 Hypokalemia; I10 Essential (primary) hypertension; E78.5 Hyperlipidemia, unspecified; E03.9 Hypothyroidism, unspecified; I16.0 Hypertensive urgency; E11.65 Type 2 diabetes mellitus with hyperglycemia; E11.40 Type 2 diabetes mellitus with diabetic neuropathy, unspecified; E11.621 Type 2 diabetes mellitus with foot ulcer; L97.519 Non-pressure chronic ulcer of other part of right foot with unspecified severity; Z95.1 Presence of aortocoronary bypass graft; Z90.5 Acquired absence of kidney; Z90.49 Acquired absence of other specified parts of digestive tract; Z85.528 Personal history of other malignant neoplasm of kidney; Z79.82 Long term (current) use of aspirin; Z79.02 Long term (current) use of antithrombotics/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s; Z79.4 Long term (current) use of insulin; Z79.84 Long term (current) use of oral hypoglycemic drugs; Z79.899 Other long term (current) drug therapy; Z89.412 Acquired absence of left great toe; Z89.421 Acquired absence of other right toe(s); Z87.891 Personal history of nicotine dependence
CPT/HCPCS: 36415; 74176; 80048; 80053; 82947; 83690; 83735; 84100; 84132; 85025; 88304; 93005; 93926; 94760; 96374; 96375; 99284; 99285; G0378; J0360; J0696; J1100; J1200; J1630; J1650; J1815; J2003; J2250; J2405; J2550; J2704; J2765; J3010; J3480; J7030

== ENCOUNTER 2024-08-16 04:18 | Emergency (ER) | payer OTHER ==
--- OUTSIDE RECORDS SUMMARY | 2024-08-16 04:25 | XMS REPORT | Clinical Summary ---
Author Name Unknown Organization [facility] Address [address] [place] [address] Care Team Providers Care Hand Bulldozer Name Role Phone Margoth Souza MD Primary Care Provider [phone] Mary Jane Cassidy MD Unavailable [phone] Barry He MD Unavailable Patience Hunt MD Unavailable Eagle Zhu DO Unavailable [phone] Marianela Hutchinson MD Unavailable [phone] Margoth Souza MD Unavailable Ceci Nicholson MD Unavailable [phone] Marianela Hutchinson MD Primary Care Provider [phone] Sigifredo Davenport MD Unavailable Abilio Ng-C Unavailable [phone] Allergies No known active allergies Medications insulin [...] by Tylenol). 60 mL 4 3:43 PM GREETING CARD EDITOR 04/15/20 24 025 Discontinued OLANZapine (ZyPREXA) 2.5 [...] 9% indicating poor diabetic control 01/02/2024 04/14/2024 showroom consultant current use of systemic steroid 01/02/2024 04/14/2024 Diabetic ketoacidosis 2023 Overview (01/01/2024): Hospitalized locally 12/03/2023-12/06/2023 Encounters Date Type Department Care Team Description 08/06/2024 Orders Only Gastrointestinal Center [facility], 7th [place] [address] Radha Castellon RPH 07/22/2024 Orders Only Ambulatory Treatment [place] - [facility] [address] [facility], 8th [place] [address] Marianela Hutchinson MD Adenocarcinoma of stomach (Primary Dx) 07/21/2024 Telephone Ambulatory Treatment [place] - [facility] [address] [facility], 8th [place] [address] Rosanna Álvarez, ARTURO Chemotherapy Teaching 07/16/2024 2:40 PM GREETING CARD EDITOR Follow[facility]Up [facility] [address] [place] [address], 7th [place] [address] Marianela Hutchinson MD Adenocarcinoma of stomach (Primary Dx) 07/16/2024 Orders Only [facility] [address] [place] [address], 7th [place] [address] Marianela Hutchinson MD Adenocarcinoma of stomach (Primary Dx) 07/16/2024 Orders Only [facility] [address] [place] [address], 7th [place] [address] Radha Castellon [facility] Adenocarcinoma of stomach (Primary Dx) 07/16/2024 Travel 07/15/2024 10:08 AM GREETING CARD EDITOR - 07/15/2024 11:59 PM GREETING CARD EDITOR Hospital Encounter CT [facility] and Diagnostic [facility] [address] [facility], 3rd [place] [address] Mary Kay Santamaria APRN Adenocarcinoma of stomach Discharge Disposition: Home 07/15/2024 9:49 AM GREETING CARD EDITOR - 07/15/2024 10:07 AM GREETING CARD EDITOR Hospital Encounter Diagnostic Laboratory Center [facility] [place] [address] Mary Kay Santamaria, CRYOLITE RECOVERY OPERATOR Adenocarcinoma of stomach Discharge Disposition: Home 07/07/2024 Orders Only Gastrointestinal Center [facility] Main Bldg, 7th [place] [address] Gillian Gomez PA-C Adenocarcinoma of stomach (Primary Dx) 07/06/2024 Telephone [facility] - Surgical Oncology [address] [place] [address] Main dg, 7th [place] [address] Mary Kay Santamaria, CRYOLITE RECOVERY OPERATOR 07/06/2024 Orders Only [facility] - Surgical Oncology [address] [place] [address] Main dg, 7th [place] [address] Mary Kay Santamaria, CRYOLITE RECOVERY OPERATOR 07/06/2024 Orders Only [facility] [address] [place] [address] Main [facility], 7th [place] [address] Gillian Gomez PA-C Adenocarcinoma of stomach (Primary Dx) 07/06/2024 Multidisciplinary Visit [facility] [address] [place] [address] Main [facility], 7th [place] [address] Gillian Gomez PA-C 07/06/2024 Orders Only [facility] [address] [place] [address] Main dg, 7th [place] [address] Donnell Van Adenocarcinoma of stomach (Primary Dx) 07/02/2024 11:00 AM GREETING CARD EDITOR Nutrition Clinical Nutrition For your Nutrition appointment location directions please call: Marianela Hutchinson MD Munder, Kathryn, SCOTT Left without seen 07/02/2024 10:30 AM GREETING CARD EDITOR [facility] Oncology [address] [place] [address] Main Bldg, 7th [place] [address] John Fong MD Adenocarcinoma of stomach 07/02/2024 Documentation [facility] [address] [place] [address] Main Bldg, 7th Floor Elevator [place] [id number] John Fong MD 06/30/2024 3:33 PM GREETING CARD EDITOR Anesthesia Event Perioperative Evaluation and Management Center [address] [place] [address], [address] [place] [address] [place] [address] Lien Antonio RN 06/30/2024 12:25 PM GREETING CARD EDITOR Anesthesia Event Endoscopy Center [address] [place] [address], 5th [place] [address] Susana Kelly MD 06/30/2024 12:00 PM GREETING CARD EDITOR - 06/30/2024 12:45 PM GREETING CARD EDITOR Surgery Endoscopy Center [address] [place] [address], [address] [place] [address] [place] [address] Brandon Alcala MD DIAGNOSTIC UPPER GASTROINTESTINAL ENDOSCOPY 06/30/2024 10:15 AM GREETING CARD EDITOR - 06/30/2024 2:24 PM GREETING CARD EDITOR Hospital Encounter Endoscopy Center [address] [place] [address], [facility] [place] [address] Brandon Alcala MD Adenocarcinoma of stomach Discharge Disposition: Home 06/30/2024 Travel 06/29/2024 9:00 AM GREETING CARD EDITOR Consult Perioperative Evaluation and Management [address] [place] [address], [address] [place] [address] [place] [address] Mary Kay Santamaria APRN Vu, Khanh D, MD Encounter for preprocedural cardiovascular examination (Primary Dx); Coronary arteriosclerosis, not otherwise specified; Cardiomyopathy, not otherwise specified; Hypertension; halfway current use of 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; Type 2 diabetes mellitus with hyperglycemia; Dyslipidemia; Hyponatremia; Hyperkalemia; Adenocarcinoma of stomach; Paroxysmal atrial fibrillation; Hyperlipidemia, not otherwise specified 06/29/2024 8:00 AM GREETING CARD EDITOR POEM Appointments Perioperative Evaluation and Management Center [address] [place] [address], [facility] [place] [address] Marianela Hutchinson MD 06/29/2024 7:30 AM GREETING CARD EDITOR - 06/29/2024 11:59 PM GREETING CARD EDITOR Hospital Encounter [facility] [address] [place] [address], 2nd [place] [address] Mary Kay Santamaria, FRANK Adenocarcinoma of stomach Discharge Disposition: Home 06/29/2024 Travel 06/23/2024 Documentation [facility] [address] [place] [address], 7th [place] [address] Mony Saavedra RN 06/22/2024 12:20 PM GREETING CARD EDITOR Follow[facility] [address] [place] [address], 7th [place] [address] Marianela Hutchinson MD Adenocarcinoma, NOS of stomach, NOS 06/22/2024 Orders Only [facility] [address] [place] [address], 7th [place] [address] Radha Castellon Werner 06/22/2024 Travel 06/20/2024 10:45 AM GREETING CARD EDITOR - 06/20/2024 11:59 PM GREETING CARD EDITOR Hospital Encounter Diagnostic Imaging Center [address] [place] [address], 3rd [place] [address] Adenocarcinoma, NOS of stomach, NOS; Malignant neoplasm of overlapping sites of esophagus Discharge Disposition: Home 06/20/2024 10:08 AM GREETING CARD EDITOR - 06/20/2024 10:44 AM GREETING CARD EDITOR Hospital Encounter Diagnostic Laboratory Center [address] [place] [address] Gillian Gomez PA-C Adenocarcinoma, NOS of stomach, NOS Discharge Disposition: Home 06/16/2024 Telephone [facility] - Surgical Oncology [address] [place] [address], 7th [place] [address] Mary Kay Santamaria, FRANK 06/15/2024 1:30 PM GREETING CARD EDITOR Infusion [facility] - [facility] [address] [facility], 8th [place] [address] Marianela Hutchinson MD [facility] Adenocarcinoma of stomach (Primary Dx); Iron deficiency anemia, not otherwise specified 06/15/2024 12:40 PM GREETING CARD EDITOR Follow-Up [facility] [address] [place] [address], [facility] [place] [address] Marianela Hutchinson MD Adenocarcinoma, NOS of stomach, NOS; Malignant neoplasm of overlapping sites of esophagus 06/15/2024 10:24 AM GREETING CARD EDITOR - 06/15/2024 11:59 PM GREETING CARD EDITOR Hospital Encounter Diagnostic Laboratory Center [address] [place] [address] Marianela Hutchinson MD Adenocarcinoma of stomach; Adenocarcinoma, NOS of stomach, NOS Discharge Disposition: Home 06/15/2024 Orders Only [facility] Center [address] [place] [address], [address] [place], [place] [address] [address] Radha Castellon, [facility] Adenocarcinoma of stomach (Primary Dx) 06/15/2024 Orders Only [facility] [address] [place] [address], [address] [place], [place] [address] [address] Gillian Gomez PA-C 06/15/2024 Travel 06/15/2024 Telephone [facility] - Gastroenterology, Hepatology & Nutrition [address] [place] [address], [address] [place], [place] [address] [address] Arnaldo Araujo PA-C 06/15/2024 Multidisciplinary Visit [facility] [address] [place] [address], [address] [place] [address] Lakeshia Pablo PA 06/15/2024 Orders Only [facility] [address] [place] [address], [address] [place], [place] [address] [address] Marianela Hutchinson MD Adenocarcinoma of stomach (Primary Dx) 06/12/2024 Prep for Surgery [facility] - Gastroenterology, Hepatology & Nutrition [address] [place] [address], [address] [place] [address] Arnaldo Aruajo PA-C Adenocarcinoma of stomach (Primary Dx) 06/12/2024 Telephone [facility] - Surgical Oncology [address] [place] [address], [address] [place], [place] [address] [address] Mary Kay Santamaria, FRANK 06/12/2024 Orders Only [facility] - Surgical Oncology [address] [place] [address], 7th [place] [address] Mary Kay Santamaria APRN Adenocarcinoma of stomach (Primary Dx) 06/10/2024 Orders Only [facility]astro[facility] Center - Surgical Oncology [facility], 7th [place] [address] Mary Kay Santamaria APRN Adenocarcinoma of stomach (Primary Dx) 06/05/2024 Telephone [facility] - Gastroenterology, Hepatology & Nutrition [address] [place] [address], 7th [place] [address] Arnaldo Araujo PA-C 06/03/2024 5:30 PM GREETING CARD EDITOR Infusion [facility] [address] [facility], 8th [place] [address] Marianela Hutchinson MD Lewandowski, Teresa M RN Adenocarcinoma of stomach (Primary Dx) 06/03/2024 Travel 06/02/2024 Telephone [facility] [address] [place] [address], 7th [place] [address] Mony Saavedra RN 06/01/2024 1:00 PM GREETING CARD EDITOR Infusion [facility] [address] [facility], Floor 6 [place] [address] Marianela Hutchinson MD Shaik, Anna Marie B, RN Adenocarcinoma of stomach (Primary Dx); Iron deficiency anemia, not otherwise specified 06/01/2024 10:53 AM GREETING CARD EDITOR - 06/01/2024 11:59 PM GREETING CARD EDITOR Hospital Encounter Diagnostic Laboratory Center [address] [place] [address] Marianela Hutchinson MD Adenocarcinoma of stomach; Iron deficiency anemia, not otherwise specified Discharge Disposition: Home 06/01/2024 Orders Only [facility] [address] [place] [address], 7th [place] [address] Marianela Hutchinson MD 06/01/2024 Orders Only Gastrointestinal Center [facility] Main dg, 7th [place] [address] Radha Castellon, [facility] Adenocarcinoma of stomach (Primary Dx); Iron deficiency anemia, not otherwise specified 06/01/2024 Travel 06/01/2024 Orders Only [facility] - Ambulatory Treatment [place] [address] [facility], Floor 6 [place] [address] Marianela Hutchinson MD Adenocarcinoma of stomach (Primary Dx) 05/26/2024 Telephone [facility] Center - Gastroenterology, Hepatology & Nutrition [facility] Main [facility], 7th [place] [address] Arnaldo Araujo PA-C 05/22/2024 Telephone [facility] - Gastroenterology, Hepatology & Nutrition [facility], 7th [place] [address] Arnaldo Araujo PA-C 05/22/2024 Orders Only [facility] - Gastroenterology, Hepatology & Nutrition [address] [place] [address], 7th [place] [address] Arnaldo Araujo PA-C Candidal esophagitis (Primary Dx) 05/20/2024 4:30 PM GREETING CARD EDITOR - 05/20/2024 11:59 PM GREETING CARD EDITOR Hospital Encounter Ambulatory Treatment [place] - [place] [address] [facility] Main [facility], 2nd Floor, [place] [address] Marianela Hutchinson MD Lewandowski, Teresa M RN Adenocarcinoma of stomach Discharge Disposition: Home 05/19/2024 12:44 PM GREETING CARD EDITOR Anesthesia Event Endoscopy Center [address] [facility] Main dg, 5th [place] [address] Maurice Ferrera MD Thomas, Ashly DEVELOPMENTAL ELECTRONICS ASSEMBLER 05/19/2024 12:00 PM GREETING CARD EDITOR - 05/19/2024 1:10 PM GREETING CARD EDITOR Surgery Endoscopy Center [facility] Main dg, 5th [place] [address] Brandon Alcala MD UPPER GASTROINTESTINAL ENDOSCOPY OF ESOPHAGUS, STOMACH, OR DUODENUM ANDJ ADJACENT STRUCTURES, WITH ENDOSCOPIC ULTRASOUND EXAMINATION 05/19/2024 11:17 AM GREETING CARD EDITOR - 05/19/2024 2:49 PM GREETING CARD EDITOR Hospital Encounter Endoscopy Center [address] [place] [address], 5th [place] [address] Brandon Alcala MD Adenocarcinoma of stomach Discharge Disposition: Home 05/19/2024 Travel 05/18/2024 1:00 PM GREETING CARD EDITOR Infusion [facility] [address] [facility], Floor 6 [place] [address] Marianela Hutchinson MD Rupp, Alexa B, RN Adenocarcinoma of stomach (Primary Dx) 05/18/2024 12:20 PM GREETING CARD EDITOR Follow-Up [facility] [address] [place] [address], 7th [place] [address] Marianela Hutchinson MD Adenocarcinoma, NOS of stomach, NOS 05/18/2024 11:00 AM GREETING CARD EDITOR POEM Appointments Perioperative Evaluation and Management Center [address] [place] [address], 6th [place] [address] Marianela Hutchinson MD 05/18/2024 10:32 AM GREETING CARD EDITOR - 05/18/2024 11:59 PM GREETING CARD EDITOR Hospital Encounter Diagnostic Laboratory Center [address] [place] [address] Gillian Gomez PA-C Adenocarcinoma, NOS of stomach, NOS Discharge Disposition: Home 05/18/2024 Orders Only [facility] [address] [place] [address], [address] [facility] [place] [address] Marianela Hutchinson MD Adenocarcinoma of stomach (Primary Dx) 05/18/2024 Orders Only [facility] Center [address] [place] [address], [address] [place] [address] [place] [address] Radha Castellon [facility] Adenocarcinoma of stomach (Primary Dx); Iron deficiency anemia, not otherwise specified 05/18/2024 Travel 05/15/2024 11:59 PM GREETING CARD EDITOR Anesthesia Event Perioperative Evaluation [facility] Management Center [address] [place] [address], 6th [place] [address] Eri Lynne, RN 05/06/2024 5:30 PM GREETING CARD EDITOR Infusion [facility] [address] [facility], 8th [place] [address] Marianela Hutchinson MD Pagara, Leni S, RN Adenocarcinoma of stomach 05/04/2024 12:36 PM GREETING CARD EDITOR - 05/04/2024 11:59 PM GREETING CARD EDITOR Hospital Encounter Ambulatory Treatment Center - [facility] [address] [place] [address], 2nd Floor, [place] [address] Gillian Gomez PA-C Jo, Edifia Sungsoon, ARTURO Adenocarcinoma of stomach (Primary Dx) Discharge Disposition: Home 05/04/2024 12:20 PM GREETING CARD EDITOR Follow-Up [facility] [address] [place] [address], 7th [place] [address] Marianela Hutchinson MD Adenocarcinoma, NOS of stomach, NOS 05/04/2024 11:10 AM GREETING CARD EDITOR - 05/04/2024 12:35 PM GREETING CARD EDITOR Hospital Encounter Diagnostic Laboratory Center [address] [place] [address] Gillian Gomez PA-C Adenocarcinoma, NOS of stomach, NOS; Adenocarcinoma of stomach Discharge Disposition: Home 05/04/2024 Orders Only [facility] [address] [place] [address], 7th [place] [address] Marianela Hutchinson MD Adenocarcinoma of stomach (Primary Dx) 05/04/2024 Orders Only [facility] [address] [place] [address], 7th [place] [address] Radha Castellon Werner Adenocarcinoma of stomach (Primary Dx) 05/04/2024 Travel 04/30/2024 Orders Only [facility] - Surgical Oncology [address] [place] [address], 7th [place] [address] Mary Kay Santamaria APRN Adenocarcinoma of stomach (Primary Dx); Paroxysmal atrial fibrillation; Hyperlipidemia, not otherwise specified; Type 2 diabetes mellitus with hyperglycemia 04/27/2024 8:05 PM GREETING CARD EDITOR Ancillary Procedure Image Library [address] [place] [address] Cancer 04/27/2024 8:00 PM GREETING CARD EDITOR Ancillary Procedure Image Library [address] [place] [address] Cancer 04/27/2024 Orders Only [facility] [address] [place] [address], [address] [place], [place] [address] Donnell Van Adenocarcinoma of stomach (Primary Dx) 04/24/2024 Documentation Vascular Access and Procedures Center [address] [facility], 8th Floor Elevator [place] [id number] Mary Kay Santamaria APRN 04/24/2024 Orders Only [facility] - Surgical Oncology [address] [place] [address] Mary Kay Santamaria, FRANK Adenocarcinoma, NOS of stomach, NOS (Primary Dx) 04/24/2024 Telephone [facility] - Surgical Oncology [address] [place] [address] Mary Kay Santamaria APRN 04/22/2024 Lab Requisition [facility] Sincere Moralez MD Jain, Shilpa, MD 04/21/2024 Orders Only Gastrointestinal Center [address] [place], [place] [id number] Gillian Gomez PA-C Adenocarcinoma, NOS of stomach, NOS (Primary Dx); Adenocarcinoma of stomach 04/16/2024 Telephone [facility] [address] [place] [address] 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, photoengraving retoucher Call 04/15/2024 10:09 AM GREETING CARD EDITOR Anesthesia Event MAIN OR [address] [place] [address] Meenakshi Crowe MD Miller, Wendy, PAXTON 04/15/2024 10:05 AM GREETING CARD EDITOR - 04/15/2024 1:25 PM GREETING CARD EDITOR Surgery MAIN OR [address] [place] [address] John Fong MD ROBOTIC ASSISTED SURGICAL LAPAROSCOPY 04/15/2024 7:32 AM GREETING CARD EDITOR - 04/15/2024 11:50 PM GREETING CARD EDITOR Hospital Encounter MAIN OR [address] [place] [address] John Fong MD Adenocarcinoma of stomach (Primary Dx) Discharge Disposition: Home 04/15/2024 Travel 04/14/2024 2:30 PM GREETING CARD EDITOR Consult [facility] - Surgical Oncology [address] [place] [address] Main [facility], 7th [place] [address] Gillian Gomez PA-C Badgwell, Brian, MD Adenocarcinoma, NOS of stomach, NOS (Primary Dx); Nausea 04/14/2024 Documentation [facility] - Surgical Oncology [address] [place] [address] Main dg, 7th [place] [address] John Fong MD 04/13/2024 3:00 PM GREETING CARD EDITOR Consult [facility] [address] [place] [address] Main [facility], 7th [place] [address] Marianela Hutchinson MD Mass of stomach (Primary Dx) 04/13/2024 2:02 PM GREETING CARD EDITOR Anesthesia Event Perioperative Evaluation and Management Center [address] [place] [address], 6th [place] [address] Curtis Moctezuma PA 04/12/2024 8:22 AM GREETING CARD EDITOR - 04/12/2024 3:42 PM GREETING CARD EDITOR Hospital Encounter MAIN P06B [address] [place] [address] Nghia Zhu MD Elsayem, Ahmed, MD Nausea and vomiting (Primary Dx); Gastric cancer; Pancreatitis Discharge Disposition: Left Against Medical Advice 04/12/2024 Travel 04/09/2024 8:25 PM GREETING CARD EDITOR Ancillary Procedure Image Library [address] [place] [address] Margoth Souza MD Cancer 04/09/2024 8:20 PM GREETING CARD EDITOR Ancillary Procedure Image Library [address] [place] [address] Margoth Souza MD Cancer 04/09/2024 8:15 PM GREETING CARD EDITOR Ancillary Procedure Image Library [address] [place] [address] Margoth Souza MD Cancer 04/09/2024 8:10 PM GREETING CARD EDITOR Ancillary Procedure Image Library [address] [place] [address] Margoth Souza MD Cancer 04/09/2024 8:05 PM GREETING CARD EDITOR Ancillary Procedure Image Library [address] [place] [address] Margoth Souza MD Cancer 04/09/2024 8:00 PM GREETING CARD EDITOR Ancillary Procedure Image Library [address] [place] [address] Margoth Souza MD Cancer 04/09/2024 10:48 AM GREETING CARD EDITOR - 04/09/2024 11:59 PM GREETING CARD EDITOR Hospital Encounter Diagnostic Laboratory Center [address] [place] [address] Ceci Nicholson MD Encounter for other preprocedural examination; Atherosclerosis of coronary 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, not otherwise specified; 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 Discharge Disposition: Home 04/09/2024 10:00 AM GREETING CARD EDITOR POEM Appointments Perioperative Evaluation and Management Center [address] [place] [address], 6th [place] [address] Margoth Souza MD 04/09/2024 9:56 AM GREETING CARD EDITOR - 04/09/2024 10:47 AM GREETING CARD EDITOR Hospital Encounter [facility] - Cardiology [address] [place] [address], 2nd [place] [address] Ceci Nicholson MD Adenocarcinoma of stomach; Hyperlipidemia, not otherwise specified; Encounter for other preprocedural examination; Atherosclerosis of coronary 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, not otherwise specified Discharge Disposition: Home 04/09/2024 9:00 AM GREETING CARD EDITOR Consult Perioperative Evaluation and Management [address] [place] [address], 6th [place] [address] Mary Kay Santamaria APRN Misoi, Mercy W, MD Encounter for other preprocedural examination (Primary Dx); Adenocarcinoma of stomach; Paroxysmal atrial fibrillation; Hypertension; 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; Hyperlipidemia, not otherwise specified; Current use of 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; Atherosclerosis of coronary 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, not otherwise specified 04/09/2024 Travel 04/08/2024 Prep for Surgery [facility] - Surgical Oncology [address] [place] [address], [address] [place] [address] Elevator [place] [address] Mary Kay Santamaria APRN Adenocarcinoma of stomach (Primary Dx); Mass of stomach 04/08/2024 Orders Only [facility] [address] [place] [address], [address] [place] [address] [place] [address] Mary Kay Santamaria APRN Adenocarcinoma of stomach (Primary Dx); Paroxysmal atrial fibrillation; Hypertension; 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; Hyperlipidemia, not otherwise specified; Current use of 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 04/08/2024 Orders Only [facility] [address] [place] [address], [address] [place] [address] [place] [address] Gillian Gomez PA-C Adenocarcinoma, NOS of stomach, NOS (Primary Dx) 04/06/2024 Orders Only [facility] [address] [place] [address], 7th [place] [address] Roberto Poole PA 04/06/2024 Orders Only [facility] [address] [place] [address], 7th [place] [address] Roberto Poole PA Mass of stomach (Primary Dx) 04/06/2024 Orders Only [facility] [address] [place] [address], 7th [place] [address] Roberto Poole PA Mass of stomach (Primary Dx) 04/06/2024 Telephone [facility] [address] [place] [address], 7th Floor Elevator [place] [phone] Anais Meng RN 02/11/2024 Travel 02/10/2024 3:30 PM CDT Telemedicine [facility] [address] [facility], 7th [place] [address] Margoth Souza MD Renal mass (Primary Dx) 01/02/2024 7:15 AM CDT Ancillary Procedure MAIN OR [address] [place] [address] Margoth Souza MD 01/02/2024 7:00 AM CDT - 01/02/2024 11:40 AM CDT Surgery MAIN OR [address] [place] [address] Margoth Souza MD ROBOTIC ASSISTED PARTIAL NEPHRECTOMY 01/02/2024 6:58 AM CDT Anesthesia Event MAIN OR [address] [place] [address] Alonzo Liu MD Majekodumi, Jessy, CRNA 01/02/2024 5:04 AM CDT - 01/03/2024 5:05 PM CDT Hospital Encounter MAIN P09B [address] [place] [address] Margoth Souza MD Renal mass (Primary Dx) Discharge Disposition: Home 01/02/2024 Travel 12/31/2023 1:04 PM CDT - 12/31/2023 11:59 PM CDT Hospital Encounter [facility] [address] [place] [address], 3rd [place] [address] Margoth Souza MD Renal mass Discharge Disposition: Home 12/31/2023 8:00 AM CDT Consult [facility] [address] [place] [address], 6th [place] [address] Nakia Kirby APRN Khan, Sonya, MD Type 2 diabetes mellitus with hyperglycemia [E11.65] (Primary Dx); Pre-surgery evaluation 12/30/2023 9:30 AM CDT Office Visit [facility] [address] [place] [address], 7th [place] [address] Margoth Souza MD Renal mass 12/30/2023 Travel 12/30/2023 Telephone [facility] [address] [place] [address], [address] [place], [place] [address] [address] Winnie Archibald, RN Appointment (Cannot get internet-phone broke) 12/30/2023 Orders Only [facility] [address] [place] [address], 7th [place] [address] Roberto Poole PA Renal mass (Primary Dx) 12/29/2023 Orders Only [facility] [address] [place], [place] [address] [address] Veronica Del Castillo APRN 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); Endocrine/metabolic screening; Renal cell carcinoma <Left side> 12/25/2023 8:36 AM CDT Anesthesia Event [facility] [address] [place] [address] Lien Antonio RN 12/23/2023 10:30 AM CDT Consult [facility] [address] [place] [address] Margoth Souza MD Oh, Jeong, MD Encounter for other preprocedural examination (Primary Dx); Renal mass; Hyperlipidemia, not otherwise specified 12/23/2023 9:00 AM CDT POEM Appointments [facility] [address] [place] [phone] Margoth Souza MD Pre-surgery evaluation (Primary Dx) 12/23/2023 8:45 AM CDT - 12/23/2023 11:59 PM CDT Hospital Encounter [facility] [address] [place] [address] Margoth Souza MD Renal mass Discharge Disposition: Home 12/23/2023 Travel 12/09/2023 9:33 AM CDT - 12/09/2023 11:59 PM CDT Hospital Encounter [facility] [address] [place] [address] ElizaEvonne LeahFRANK Henry 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; Endocrine/metabolic screening Discharge Disposition: Home 12/09/2023 8:30 AM CDT Consult [facility] [address] [place] [address], 6th [place] [address] Mary Jane Cassidy MD 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); Endocrine/metabolic screening; Renal cell carcinoma <Left side> 12/09/2023 Travel 10/23/2023 Orders Only [facility] [address] [place] [address], 7th [place] [address] Roberto Poole PA Renal mass (Primary Dx); Adrenal mass 10/03/2023 9:30 AM CDT - 10/03/2023 11:59 PM CDT Hospital Encounter Interventional Radiology [address] [place] [address], 4th [place] [address] Shazia Arriaza MD McRae, Stephen, MD Renal mass Discharge Disposition: Home 10/03/2023 8:30 AM CDT - 10/03/2023 9:29 AM CDT Hospital Encounter [facility] [address] [place] [phone] Margoth Souza MD Renal mass Discharge Disposition: Home 10/03/2023 Travel 10/02/2023 8:24 AM CDT - 10/02/2023 11:59 PM CDT Hospital Encounter Interventional Radiology [address] [place] [address], 4th [place] [address] Margoth Souza MD Ho, Thanh-Trang D, PA-C Encounter for other preprocedural examination (Primary Dx); Renal mass; 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 Discharge Disposition: Home 10/02/2023 Travel 09/24/2023 7:46 AM CDT - 09/24/2023 11:59 PM CDT Hospital Encounter [facility] [address] [place] [phone] Roberto Poole PA Adrenal mass Discharge Disposition: Home 09/20/2023 Orders Only [facility] [address] [place] [address], 7th [place] [address] Roberto Poole PA Adrenal mass (Primary Dx) 09/19/2023 11:45 AM CDT Ancillary Procedure [facility] [address] [place] [address], 7th [place] [address] Shazia Arriaza MD Renal mass 09/19/2023 9:20 AM CDT - 09/19/2023 11:59 PM CDT Hospital Encounter [facility] [address] [place] [address] Shazia Arriaza MD Adenoma, NOS of adrenal gland, NOS <Left> Discharge Disposition: Home 09/19/2023 Orders Only Interventional Radiology [address] [place] [address], 4th [place] [address] Abilio Ng PA-C Renal mass (Primary Dx) 09/19/2023 Travel 09/19/2023 Telephone [facility] [address] [place] [address] Barbara Rees MA 09/16/2023 4:00 PM CDT - 09/16/2023 11:59 PM CDT Hospital Encounter [facility] [address] [place] [address] Shazia Arriaza MD Renal mass; Adrenal mass Discharge Disposition: Home 09/16/2023 2:00 PM CDT Office Visit [facility] [address] [place] [address], 7th [place] [address] Margoth Souza MD Renal mass (Primary Dx); Adrenal mass; Adenoma, NOS of adrenal gland, NOS <Left>; 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 09/16/2023 12:30 PM CDT NPR MDA PATIENT ACCESS 09/16/2023 Travel after 08/17/2023 Surgical History Surgery Date Site/Laterality Comments TOE AMPUTATION x2, 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, 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 APPENDECTOMY 05/20/1973 - 05/19/1974 Open WRIST SURGERY Left HAND SURGERY Right HIP ARTHRODESIS W/ ILIAC CRE ST BONE GRAFT Bilateral For hand surgeries CERVICAL SPINE SURGERY C3-6 fusion, x2 IN LAPAROSCOPY SURG PARTIAL NEPHRECTOMY 01/02/2024 Abdomen/Left Procedure: ROBOTIC ASSISTED PARTIAL NEPHRECTOMY; Surgeon: Margoth Souza MD; Location: MAIN OR; Service: UROLOGY IN ULTRASONIC GUIDANCE INTRAOPERATIVE 01/02/2024 Left Procedure: INTROPERATIVE ULTRASOUND - PERFORMED BY SURGEON; Surgeon: Margoth Souza MD; Location: MAIN OR; Service: UROLOGY CORONARY ARTERY BYPASS GRAFT 01/07/2024 IN LAPS ABD PRTM&OMENTUM DX W/WO SPEC BR/WA SPX 04/15/2024 Abdomen/N/A Procedure: ROBOTIC ASSISTED SURGICAL LAPAROSCOPY; Surgeon: John Fong MD; Location: MAIN OR; Service: SURG ONC - GASTRIC/HIPEC Medical devices from this surgery are in the Medical Devices section. IN FLUORO CENTRAL VENOUS ACC ESS DEV PLACEMENT 04/15/2024 Neck/N/A Procedure: FLUORO GUIDANCE FOR CENTRAL VENOUS ACCESS DEVICE PLACEMENT, REPLACEMENT, OR REMOVAL; Surgeon: John Fong MD; Location: MAIN OR; Service: SURG ONC - GASTRIC/HIPEC Medical devices from this surgery are in the Medical Devices section. IN US VASC ACCESS SITS VSL P ATENCY NDL ENTRY 04/15/2024 N/A Procedure: US GUIDANCE WITH EVAL OF POTENTIAL ACCESS SITES, REALTIME US VISUALIZATION OF VASC NEEDLE ENTRY; Surgeon: John Fong MD; Location: MAIN OR; Service: SURG ONC - GASTRIC/HIPEC Medical devices from this surgery are in the Medical Devices section. IN INSJ TUNNELED CTR VAD W/S UBQ PORT AGE 5 YR/> 04/15/2024 Neck/N/A Procedure: PORT-A-CATH PLACEMENT; Surgeon: John Fong MD; Location: MAIN OR; Service: SURG ONC - GASTRIC/HIPEC Medical devices from this surgery are in the Medical Devices section. IN ESOPHAGOGASTRODUODENOSCOP Y US SCOPE W/ADJ STRXRS 05/19/2024 Esophagus/N/A Procedure: UPPER GASTROINTESTINAL ENDOSCOPY OF ESOPHAGUS, STOMACH, OR DUODENUM ANDJ ADJACENT STRUCTURES, WITH ENDOSCOPIC ULTRASOUND EXAMINATION; Surgeon: Brandon Alcala MD; Location: MAIN ENDOSCOPY; Service: GASTROENTEROLOGY IN ESOPHAGOGASTRODUODENOSCOP Y TRANSORAL DIAGNOSTIC 06/30/2024 Esophagus/N/A Procedure: [...] locally 12/03/2023-12/06/2023 of note, pt was on [facility] Peripheral vascular disease 2023 Left [...] on file Legal Sex Male 11:38 AM GREETING CARD EDITOR Gender Identity Not on file Sexual Orientation Not on file Occupation Industry Job Start Date Job End Date retired from [employer] Not on file N ot on file Not on file Travel History Travel Start Travel End [place] 04/12/2024 04/12/2024 Obstetrics History Last Filed Vital Signs Vital Sign Reading Time Taken Comments Blood Pressure 147/83 07/16/2024 2:11 PM GREETING CARD EDITOR Pulse 78 07/16/2024 2:11 PM GREETING CARD EDITOR Temperature 36.5 C (97.7 F) 07/16/2024 2:11 PM CS T Respiratory Rate 18 07/16/2024 2:11 PM GREETING CARD EDITOR Oxygen Saturation 98% 07/16/2024 2:11 PM GREETING CARD EDITOR Inhaled Oxygen Concentration - - Weight 38.7 kg (85 lb 4.8 oz) 07/16/2024 2:11 PM GREETING CARD EDITOR Height 188 cm (6' 2") 05/19/2024 11:53 AM GREETING CARD EDITOR Body Mass Index 10.95 05/19/2024 11:53 AM GREETING CARD EDITOR Plan of Treatment Upcoming Encounters Date Type Department Care Team (Late st Contact Info) Description 02/01/2025 11:30 AM CDT Appointment [facility] [address] [place] [phone] Veronica Del Castillo, CRYOLITE RECOVERY OPERATOR [facility] [place] [address] [email or web address] 02/01/2025 11:[address] [facility] [address] [place] [address], 3rd [place] [address] Veronica Del Castillo, CRYOLITE RECOVERY OPERATOR [facility] [place] [address] [email or web address] 02/01/2025 3:00 PM CDT Follow-Up Endocrine Center [address] [place] [address], 6th [place] [address] Mary Jane Cassidy MD [address] [place] [phone] [email or web address] 02/05/2025 10:45 AM CDT Lab [facility] [address] [facility], 7th [place] [address] Margoth Souza MD [address] [place] [phone] [email or web address] 02/05/2025 11:15 AM CDT Ancillary Procedure [facility] [address] [place] [address], [address] [place] [address] Margoth Souza MD [address] [place] [phone] [email or web address] 02/05/2025 11:55 AM CDT Ancillary Procedure CT Imaging [address] [place] [address], [address] [place] [address] Margoth Souza MD [address] [place] [phone] [email or web address] 02/08/2025 2:30 PM CDT Telemedicine [facility] [address] [place] [address], [address] [place] [address] Margoth Souza MD [address] [place] [phone] [email or web address] Health Maintenance Due Date Last Done Comments COVID-19 Vaccine (#1) 01/09/1969 Pneumococcal Vaccine: 50+ Years (1 of 2 - PCV) 983 01/09/1975 Influenza Vaccine (#1) 2024 08/04/2018 Medical Devices Implanted Type Area Hole Puncher Strap Device Identifier Shelf Expiration Date Model / Serial / Lot Slade Muhammad 6fr - [id number] Implanted:Qty: 1 on 04/15/2024 by John Fong MD at [employer] [facility] [employer] [facility] Implant Right: Neck BARD ACCESS SYSTEMS 12/17/2024 [id number] / / [id number] Procedures Procedure Name Priority Date/Time Associated Diagnosis Comments CT CHEST ABDOMEN PELVIS W CONTRAST Routine 07/15/2024 4:38 PM GREETING CARD EDITOR Adenocarcinoma of stomach .CBC Routine 07/15/2024 10:01 AM GREETING CARD EDITOR Adenocarcinoma of stomach CARCINOEMBRYONIC ANTIGEN Routine 025 10:01 AM GREETING CARD EDITOR Adenocarcinoma of stomach LACTATE DEHYDROGENASE Routine 07/15/2024 10:01 AM GREETING CARD EDITOR Adenocarcinoma of stomach PHOSPHORUS LEVEL Routine 07/15/2024 10:01 AM GREETING CARD EDITOR Adenocarcinoma of stomach MAGNESIUM LEVEL Routine 07/15/2024 10:01 AM GREETING CARD EDITOR Adenocarcinoma of stomach COMPREHENSIVE METABOLIC PANEL Routine 10:01 AM GREETING CARD EDITOR Adenocarcinoma of stomach COMPLETE BLOOD COUNT W/ DIFFERENTIAL Routine 07/15/2024 10:01 AM GREETING CARD EDITOR Adenocarcinoma of stomach RESEARCH PROTOCOL [id number] Routine 07/15 10:01 AM GREETING CARD EDITOR Adenocarcinoma of stomach MDA AP IHC WORKUP Routine 07/07/2024 12:29 PM GREETING CARD EDITOR Adenocarcinoma of stomach POC GLUCOSE SCREEN Routine 06/30/2024 1:23 PM GREETING CARD EDITOR PATHOLOGY BIOPSY INTERPRETATION Routine 06/30/2024 12:51 PM GREETING CARD EDITOR Adenocarcinoma of stomach IN ESOPHAGOGASTRODUODENOSCOP Y TRANSORAL DIAGNOSTIC 06/30/2024 12:15 PM GREETING CARD EDITOR Adenocarcinoma of stomach Case Notes 06/12 per gene to schedule on 06/30, per tor to schedule 06/30 thru lunch last AM case, slot held to offer. LVM and sent mychart to schedule-DC Special Needs GENERATOR TECHNICIAN CHRIS COMPLETE 06/18.GENERATOR TECHNICIANATRURO HERNANDEZ FOR DAUGHTER WITH DETAILED INSTRUCTIONS FOR PROCEDURE IN ADDITION TO HOLD ON PLAVIX FOR 5 DAYS.GENERATOR TECHNICIANARTURO HERNANDEZ 1ST CALL 06/16. POC CHEM 8 Routine 06/30/2024 11:10 AM GREETING CARD EDITOR POC GLUCOSE SCREEN Routine 06/30/2024 10:52 AM GREETING CARD EDITOR POC CHEM 8 Routine 06/29/2024 9:54 AM GREETING CARD EDITOR EKG, 12-LEAD (SCHEDULED) Routine 06/29/2024 Adenocarcinoma of stomach PETCT F18 FDG (FLUORODEOXYGLUCOSE) WITH CONTRAST Routine 06/20/2024 12:42 PM GREETING CARD EDITOR Adenocarcinoma, NOS of stomach, NOS Malignant neoplasm of overlapping sites of esophagus POC GLUCOSE SCREEN Routine 06/20/2024 11:06 AM GREETING CARD EDITOR .CBC Routine 06/20/2024 10:35 AM GREETING CARD EDITOR Adenocarcinoma, NOS of stomach, NOS CARCINOEMBRYONIC ANTIGEN Routine 025 10:35 AM GREETING CARD EDITOR Adenocarcinoma, NOS of stomach, NOS LACTATE DEHYDROGENASE Routine 06/20/2024 10:35 AM GREETING CARD EDITOR Adenocarcinoma, NOS of stomach, NOS PHOSPHORUS LEVEL Routine 06/20/2024 10:35 AM GREETING CARD EDITOR Adenocarcinoma, NOS of stomach, NOS MAGNESIUM LEVEL Routine 06/20/2024 10:35 AM GREETING CARD EDITOR Adenocarcinoma, NOS of stomach, NOS COMPREHENSIVE METABOLIC PANEL Routine 10:35 AM GREETING CARD EDITOR Adenocarcinoma, NOS of stomach, NOS COMPLETE BLOOD COUNT W/ DIFFERENTIAL Routine 06/20/2024 10:35 AM GREETING CARD EDITOR Adenocarcinoma, NOS of stomach, NOS .CBC Routine 06/15/2024 10:39 AM GREETING CARD EDITOR Adenocarcinoma of stomach CARCINOEMBRYONIC ANTIGEN Routine 025 10:39 AM GREETING CARD EDITOR Adenocarcinoma, NOS of stomach, NOS LACTATE DEHYDROGENASE Routine 06/15/2024 10:39 AM GREETING CARD EDITOR Adenocarcinoma, NOS of stomach, NOS PHOSPHORUS LEVEL Routine 06/15/2024 10:39 AM GREETING CARD EDITOR Adenocarcinoma, NOS of stomach, NOS MAGNESIUM LEVEL Routine 06/15/2024 10:39 AM GREETING CARD EDITOR Adenocarcinoma, NOS of stomach, NOS COMPREHENSIVE METABOLIC PANEL Routine 10:39 AM GREETING CARD EDITOR Adenocarcinoma of stomach COMPLETE BLOOD COUNT W/ DIFFERENTIAL Routine 06/15/2024 10:39 AM GREETING CARD EDITOR Adenocarcinoma of stomach .CBC Routine 06/01/2024 11:10 AM GREETING CARD EDITOR Adenocarcinoma of stomach TRANSFERRIN Routine 06/01/2024 11:10 AM GREETING CARD EDITOR Iron deficiency anemia, not otherwise specified Adenocarcinoma of stomach FERRITIN Routine 06/01/2024 11:10 AM GREETING CARD EDITOR Iron deficiency anemia, not otherwise specified Adenocarcinoma of stomach IRON LEVEL Routine 06/01/2024 11:10 AM GREETING CARD EDITOR Iron deficiency anemia, not otherwise specified Adenocarcinoma of stomach COMPREHENSIVE METABOLIC PANEL Routine 11:10 AM GREETING CARD EDITOR Adenocarcinoma of stomach COMPLETE BLOOD COUNT W/ DIFFERENTIAL Routine 06/01/2024 11:10 AM GREETING CARD EDITOR Adenocarcinoma of stomach POC GLUCOSE SCREEN Routine 05/19/2024 1:52 PM GREETING CARD EDITOR PATHOLOGY BIOPSY INTERPRETATION Routine 05/19/2024 1:10 PM GREETING CARD EDITOR Adenocarcinoma of stomach IN ESOPHAGOGASTRODUODENOSCOP Y US SCOPE W/ADJ STRXRS 05/19/2024 12:34 PM GREETING CARD EDITOR Adenocarcinoma of stomach Case Notes 04/24- WAITING FOR TRIAGE TO PR FOR 05/01-BJ Special Needs GENERATOR TECHNICIAN [place] Call Completed 04/30/24ad laproscopy on 04/15/24 POC GLUCOSE SCREEN Routine 05/19/2024 12:21 PM GREETING CARD EDITOR .CBC Routine 05/18/2024 10:55 AM GREETING CARD EDITOR Adenocarcinoma, NOS of stomach, NOS CARCINOEMBRYONIC ANTIGEN Routine 024 10:55 AM GREETING CARD EDITOR Adenocarcinoma, NOS of stomach, NOS LACTATE DEHYDROGENASE Routine 05/18/2024 10:55 AM GREETING CARD EDITOR Adenocarcinoma, NOS of stomach, NOS PHOSPHORUS LEVEL Routine 05/18/2024 10:55 AM GREETING CARD EDITOR Adenocarcinoma, NOS of stomach, NOS MAGNESIUM LEVEL Routine 05/18/2024 10:55 AM GREETING CARD EDITOR Adenocarcinoma, NOS of stomach, NOS COMPREHENSIVE METABOLIC PANEL Routine 10:55 AM GREETING CARD EDITOR Adenocarcinoma, NOS of stomach, NOS COMPLETE BLOOD COUNT W/ DIFFERENTIAL Routine 05/18/2024 10:55 AM GREETING CARD EDITOR Adenocarcinoma, NOS of stomach, NOS .CBC Routine 05/04/2024 11:34 AM GREETING CARD EDITOR Adenocarcinoma, NOS of stomach, NOS RESEARCH PROTOCOL [id number] Routine 05/04 11:34 AM GREETING CARD EDITOR Adenocarcinoma of stomach CARCINOEMBRYONIC ANTIGEN Routine 024 11:34 AM GREETING CARD EDITOR Adenocarcinoma, NOS of stomach, NOS LACTATE DEHYDROGENASE Routine 05/04/2024 11:34 AM GREETING CARD EDITOR Adenocarcinoma, NOS of stomach, NOS PHOSPHORUS LEVEL Routine 05/04/2024 11:34 AM GREETING CARD EDITOR Adenocarcinoma, NOS of stomach, NOS MAGNESIUM LEVEL Routine 05/04/2024 11:34 AM GREETING CARD EDITOR Adenocarcinoma, NOS of stomach, NOS COMPREHENSIVE METABOLIC PANEL Routine 11:34 AM GREETING CARD EDITOR Adenocarcinoma, NOS of stomach, NOS COMPLETE BLOOD COUNT W/ DIFFERENTIAL Routine 05/04/2024 11:34 AM GREETING CARD EDITOR Adenocarcinoma, NOS of stomach, NOS VERIFY CATHETER TIP PLACEMENT Routine 11 / 3:50 PM GREETING CARD EDITOR Adenocarcinoma of stomach POC GLUCOSE SCREEN Routine 04/15/2024 3:21 PM GREETING CARD EDITOR XR CHEST 1 VW PORTABLE Routine 2:45 PM GREETING CARD EDITOR POC GLUCOSE SCREEN Routine 04/15/2024 1:05 PM GREETING CARD EDITOR POC GLUCOSE SCREEN Routine 04/15/2024 12:52 PM GREETING CARD EDITOR CYTOLOGY NON-CUSTOMS COMPLIANCE MANAGER INTERPRETATION Routine 04/15/2024 12:33 PM GREETING CARD EDITOR Adenocarcinoma of stomach PATHOLOGY SURGICAL INTERPRETATION Routine 04/15/2024 12:13 PM GREETING CARD EDITOR Adenocarcinoma of stomach FL CENTRAL VENOUS PLACE EXCHANGE Routine 04/15/2024 11:40 AM GREETING CARD EDITOR Adenocarcinoma of stomach POC GLUCOSE SCREEN Routine 04/15/2024 9:22 AM GREETING CARD EDITOR IN INSJ TUNNELED CTR VAD W/SUBQ PORT AGE 5 YR/> 04/15/2024 9:16 AM GREETING CARD EDITOR Adenocarcinoma of stomach Special Needs MTL@0800 IN US VASC ACCESS SITS VSL PATENCY NDL ENTRY 04/15/2024 9:16 AM GREETING CARD EDITOR Adenocarcinoma of stomach Special Needs MTL@0800 IN FLUORO CENTRAL VENOUS ACCESS DEV PLACEMENT 04/15/2024 9:16 AM GREETING CARD EDITOR Adenocarcinoma of stomach Special Needs MTL@0800 IN LAPS ABD PRTM&OMENTUM DX W/WO SPEC BR/WA SPX 04/15/2024 9:16 AM GREETING CARD EDITOR Adenocarcinoma of stomach Special Needs MTL@0800 CT ABDOMEN PELVIS W CONTRAST Routine 11:18 AM GREETING CARD EDITOR .CBC Routine 04/12/2024 9:04 AM GREETING CARD EDITOR LIPASE LEVEL Routine 04/12/2024 9:04 AM GREETING CARD EDITOR AMYLASE LEVEL Routine 04/12/2024 9:04 AM GREETING CARD EDITOR LACTATE DEHYDROGENASE Routine 04/12/2024 9:04 AM GREETING CARD EDITOR FRACTIONATED BILIRUBIN Routine 9:04 AM GREETING CARD EDITOR PHOSPHORUS LEVEL Routine 04/12/2024 9:04 AM GREETING CARD EDITOR MAGNESIUM LEVEL Routine 04/12/2024 9:04 AM GREETING CARD EDITOR COMPREHENSIVE METABOLIC PANEL Routine 9:04 AM GREETING CARD EDITOR COMPLETE BLOOD COUNT W/ DIFFERENTIAL Routine 04/12/2024 9:04 AM GREETING CARD EDITOR .CBC Routine 04/09/2024 11:09 AM GREETING CARD EDITOR Encounter for other preprocedural examination Atherosclerosis of coronary 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, not otherwise specified THYROID STIMULATING HORMONE Routine 03/21 11:09 AM GREETING CARD EDITOR Encounter for other preprocedural examination Atherosclerosis of coronary 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, not otherwise specified HEMOGLOBIN A1C Routine 04/09/2024 11:09 AM GREETING CARD EDITOR 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 Encounter for other preprocedural examination COMPREHENSIVE METABOLIC PANEL Routine 11:09 AM GREETING CARD EDITOR Encounter for other preprocedural examination Atherosclerosis of coronary 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, not otherwise specified COMPLETE BLOOD COUNT W/ DIFFERENTIAL Routine 04/09/2024 11:09 AM GREETING CARD EDITOR Encounter for other preprocedural examination Atherosclerosis of coronary 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, not otherwise specified EKG, 12-LEAD (SCHEDULED) Routine 04/09/2024 Adenocarcinoma of stomach Hyperlipidemia, not otherwise specified Encounter for other preprocedural examination Atherosclerosis of coronary 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, not otherwise specified PATHOLOGY OUTSIDE INTERPRETATION Routine 04/02/[address] ABDOMEN AND PELVIS Routine 2023 8:21 AM GREETING CARD EDITOR Cancer OSI CHEST Routine 03/23/2024 7:37 PM GREETING CARD EDITOR Cancer OSI CT CHEST ABDOMEN PELVIS Routine 08/2023 7:37 PM GREETING CARD EDITOR Cancer OSI CHEST Routine 03/23/2024 7:37 PM GREETING CARD EDITOR Cancer OSI CT CHEST Routine 03/22/2024 8:21 AM GREETING CARD EDITOR Cancer OSI CT ABDOMEN AND PELVIS Routine [...] INTRAOPERATIVE US STAT 01/02/2024 7:13 AM CDT IN ULTRASONIC GUIDANCE INTRAOPERATIVE 01/02/2024 6:08 AM CDT Renal mass Special Needs [id number]:Please collect and send tissue to pathology window with appropriate label. IN LAPAROSCOPY SURG PARTIAL NEPHRECTOMY 01/02/2024 6:08 AM CDT Renal mass Special Needs [id number]:Please collect and send tissue to pathology window [...] 09/16/2023 4:23 PM CDT Renal mass after 08/17/2023 Results * CT Chest Abdomen Pelvis with Contrast (07/15/2024 4:38 PM GREETING CARD EDITOR) Anatomical Region Laterality Modality Abdomen, Pelvis, Chest Computed Tomography 07/15/2024 5:39 PM GREETING CARD EDITOR Impressions 07/15/2024 9:45 PM GREETING CARD EDITOR 1. Redemonstration of diffuse wall thickening of [...] and potentially actionable. Narrative 07/15/2024 9:45 PM GREETING CARD EDITOR FULL RESULT: Examination: CT CHEST ABDOMEN PELVIS [...] are unexpected and potentially actionable. Mary Kay Neva Rosalio MARIE IMG CT ORDERABLES Final Result * Research Protocol [id number] (07/15/2024 10:01 AM GREETING CARD EDITOR) Only the most recent of2 resultswithin the time period is included. [facility] Research Protocol Specimen Specimen Collected, Ready for Pickup. 07/15/2024 12:00 PM GREETING CARD EDITOR [facility] Blood Venipuncture / Unknown 07/15/2024 10:01 AM GREETING CARD EDITOR 07/15/2024 10:10 AM [facility] Marianela Hutchinson MD RESEARCH LAB Z CODES Final Re sult [facility] Unless otherwise noted, all lab tests performed by: Division of Pathology and Laboratory Medicine [address] [place] [id number] * (ABNORMAL) .CBC (07/15/2024 10:01 AM [facility]) Only the most recent of11 resultswithin the time period is included. [facility] White Blood Cell 6.7 4.1 - 10.5 K/uL 07/15/2024 10:33 AM [facility] Red Blood Cell 4.91 4.30 - 6.04 M/uL 07/15/2024 10:33 AM [facility] Hemoglobin 12.4(L) 13.3 - 17.4 g/dL 07/15/2024 10:33 AM [facility] Hematocrit 37.8(L) 39.5 - 51.8 % 07/15/2024 10:33 AM [facility] Mean Cell Volume 77(L) 82 - 99 fL 07/15/2024 10:33 AM [facility] Mean Cell Hemoglobin 25.3(L) 26.6 - 33.2 pg 07/15/2024 10:33 AM [facility] Mean Cell Hemoglobin Concentration 32.8 31.1 - 35.2 g/dL 07/15/2024 10:33 AM [facility] RDW-SD 40.9 37.5 - 49.7 fL 07/15/2024 10:33 AM [facility] Red Cell Diameter Width 14.8 11.6 - 15.5 % 07/15/2024 10:33 AM [facility] Platelet 226 160 - 397 K/uL 07/15/2024 10:33 AM [facility] Mean Platelet Volume 9.6 9.1 - 12.6 fL 07/15/2024 10:33 AM [facility] INRBC 0.0 0.0 - 0.1 /100 WBC 07/15/2024 10:33 AM [facility] Comment: The INRBC (instrument NRBC) value reflects the enumeration of nucleated red blood cells contained in a 200uL sample of whole blood analyzed by the instrument. This value may differ from the NRBC value reported in a manual differential, which is based on a 100 cell differential. Neutrophil % 63.5 43.2 - 72.7 % 07/15/2024 10:33 AM [facility] Lymphocyte % 25.4 16.8 - 46.2 % 07/15/2024 10:33 AM [facility] Monocyte % 8.5 5.1 - 12.5 % 07/15/2024 10:33 AM [facility] Eosinophil % 2.1 0.4 - 6.3 % 07/15/2024 10:33 AM [facility] Basophil % 0.4 0.2 - 1.4 % 07/15/2024 10:33 AM [facility] IGRE % 0.1 0.1 - 1.5 % 07/15/2024 10:33 AM [facility] Comment:The IGRE% includes M etamyelocytes, Myelocytes and Promyelocytes. Neutrophil Abs 4.25 1.95 - 7.25 K/uL 07/15/2024 10:33 AM [facility] Lymphocyte Abs 1.70 1.01 - 3.24 K/uL 07/15/2024 10:33 AM [facility] Monocyte Abs 0.57 0.24 - 0.85 K/uL 07/15/2024 10:33 AM [facility] Eosinophil Abs 0.14 0.02 - 0.50 K/uL 07/15/2024 10:33 AM [facility] Basophil Abs 0.03 0.02 - 0.09 K/uL 07/15/2024 10:33 AM [facility] IG Abs 0.01 0.01 - 0.12 K/uL 07/15/2024 10:33 AM [facility] Blood Peripheral blood specimen / Unknown Venipuncture / Unknown 07/15/2024 10:01 AM [facility] 07/15/2024 10:09 AM [facility] Gillian Gomez PA-C LAB BLOOD ORDERABLES Final Result [facility] Unless otherwise noted, all lab tests performed by: Division of Pathology and Laboratory Medicine [address] [place] [phone] * (ABNORMAL) CMP (07/15/2024 10:01 AM [facility]) Only the most recent of10 resultswithin the time period is included. Bilirubin Total 0.4 0.0 - 1.2 mg/dL 07/15/2024 11:15 AM [facility] Comment:Indocyanine Green (I CG) may cause falsely elevated bilirubin results. Total and direct bilirubin must not be measured from samples containing indocyanine green. False elevation of total bilirubin can be seen in patients with IgG concentrations above 28 g/L. eGFR 98 >=60 mL/min/1. 73 sq. m 07/15/2024 11:15 AM [facility] Comment: The eGFRcr is calculated with the [...] 6.4 - 8.3 gm/dL 07/15/2024 11:15 AM [facility] Calcium Level Total 9.6 8.2 - 10.2 mg/dL 07/15/2024 11:15 AM [facility] Alkaline Phosphatase 117 40 - 129 U/L 07/15/2024 11:15 AM [facility] Albumin Level 4.4 3.5 - 5.2 gm/dL 07/15/2024 11:15 AM [facility] AST 22 <=40 U/L 07/15/2024 11:15 AM [facility] ALT 13 <=41 U/L 07/15/2024 11:15 AM [facility] Sodium Level 138 136 - 145 mmol/L 07/15/2024 11:15 AM [facility] Potassium Level 4.1 3.4 - 4.5 mmol/L 07/15/2024 11:15 AM [facility] Chloride 101 98 - 107 mmol/L 07/15/2024 11:15 AM [facility] CO2 27 22 - 29 mmol/L 07/15/2024 11:15 AM [facility] Anion Gap 10 4 - 14 mmol/L 07/15/2024 11:15 AM [facility] Creatinine 0.90 0.67 - 1.17 mg/dL 07/15/2024 11:15 AM [facility] BUN 10 6 - 23 mg/dL 07/15/2024 11:15 AM [facility] Glucose Level 181(H) 70 - 99 mg/dL 07/15/2024 11:15 AM [facility] Comment: Effective 12/14/15, the glucose reference intervals have been updated based on [place] [employer] guidelines (Standards of Medical Care [...] Unknown Venipuncture / Unknown 07/15/2024 10:01 AM GREETING CARD EDITOR 07/15/2024 10:09 AM GREETING CARD EDITOR Gillian Gomez PA-C LAB BLOOD ORDERABLES Final Result Performing Organization Address City/[facility] Co de Phone Number [facility] Unless otherwise noted, all lab tests performed by: Division of Pathology and Laboratory Medicine [address] [place] [phone] * Phosphorus Level (07/15/2024 10:01 AM GREETING CARD EDITOR) Only the most recent of6 resultswithin the time period is included. Phosphorus Level 2.7 2.5 - 4.5 mg/dL 07/15/2024 11:15 AM [facility] Blood Peripheral blood specimen / Unknown Venipuncture / Unknown 07/15/2024 10:01 AM GREETING CARD EDITOR 07/15/2024 10:09 AM GREETING CARD EDITOR Gillian Gomez PA-C LAB BLOOD ORDERABLES Final Result [facility] Unless otherwise noted, all lab tests performed by: Division of Pathology and Laboratory Medicine [address] [place] [phone] * Magnesium Level (07/15/2024 10:01 AM GREETING CARD EDITOR) Only the most recent of6 resultswithin the time period is included. Magnesium Level 1.8 1.6 - 2.6 mg/dL 07/15/2024 11:15 AM [facility] Blood Peripheral blood specimen / Unknown Venipuncture / Unknown 07/15/2024 10:01 AM GREETING CARD EDITOR 07/15/2024 10:09 AM GREETING CARD EDITOR iGllian Gomez PA-C LAB BLOOD ORDERABLES Final Result [facility] Unless otherwise noted, all lab tests performed by: Division of Pathology and Laboratory Medicine [address] [place] [phone] * LDH (07/15/2024 10:01 AM GREETING CARD EDITOR) Only the most recent of6 resultswithin the time period is included. Pathologist [facility] LDH 202 135 - 225 U/L 07/15/2024 11:15 AM [facility] Blood Peripheral blood specimen / Unknown Venipuncture / Unknown 07/15/2024 10:01 AM GREETING CARD EDITOR 07/15/2024 10:09 AM GREETING CARD EDITOR Narrative [facility] - 07/15/2024 11:15 AM GREETING CARD EDITOR Results greater than 1651 U/L may not be reliable due to matrix effect with extended dilution as it exceeds the duty officer's recommended limit. Caution should be exercised when interpreting such values and done in conjunction with clinical context. Gillian Gomez PA-C LAB BLOOD ORDERABLES Final Result Performing Organization Address City/[facility]/ZIP Co de Phone Number [facility] Unless otherwise noted, all lab tests performed by: Division of Pathology and Laboratory Medicine [address] [place] [phone] * CEA (07/15/2024 10:01 AM GREETING CARD EDITOR) Only the most recent of5 resultswithin the time period is included. Carcinoembryonic Antigen 3.0 <=3.8 ng/mL 07/15/2024 11:26 AM [facility] Blood Peripheral blood specimen / Unknown Venipuncture / Unknown 07/15/2024 10:01 AM GREETING CARD EDITOR 07/15/2024 10:09 AM GREETING CARD EDITOR Narrative [facility] - 07/15/2024 11:26 AM GREETING CARD EDITOR Reference Ranges (age 20-69 years): Non-smoker: <= 3.8 ng/mL Smoker: <= 5.5 ng/mL This test is measured by electrochemiluminescence immunoassay on Cornelius Nikki immunoassay analyzers. Results obtained in different methods are not interchangeable. Gillian Gomez PA-C LAB BLOOD ORDERABLES Final Result [facility] Unless otherwise noted, all lab tests performed by: Division of Pathology and Laboratory Medicine [address] [place] [address] * IHC Workup (07/07/2024 12:29 PM GREETING CARD EDITOR) Tissue 07/07/2024 12:2 9 PM GREETING CARD EDITOR 07/07/2024 12:29 PM GREETING CARD EDITOR Gillian Gomez PA-C [facility] BIOMARKER ORDERABLE S Final Result Performing Organization Address [facility] Co de Phone Number [facility] [place] [place] [address], * (ABNORMAL) POC Glucose Screen - Fingerstick (06/30/2024 1:23 PM GREETING CARD EDITOR) Only the most recent of24 resultswithin the time period is included. Glucose Screen 168(H) 70 - 99 mg/dL 06/30/2024 1:25 PM GREETING CARD EDITOR [facility] POC Sample Type Capillary 06/30/2024 1:25 PM GREETING CARD EDITOR [facility] Blood 06/30/2024 1:23 PM GREETING CARD EDITOR 06/30/2024 1:25 PM GREETING CARD EDITOR Narrative [facility] - 06/30/2024 1:25 PM GREETING CARD EDITOR Capillary blood samples, e.g. obtained by fingerstick, [...] questionable test results by core lab methodology. Brandon Galo MD POCT ORDERABLES - DE VICE Final Result [facility] Unless otherwise noted, all lab tests performed by: Division of Pathology and Laboratory Medicine [facility] [place] [address] * Pathology Biopsy Interpretation (06/30/2024 12:51 PM GREETING CARD EDITOR) Only the most recent of3 resultswithin the time period is included. Addendum 1 By immunohistochemistry, approximately 10% of the tumor cells show weakly to moderately cytoplasmic staining for claudin 18. By immunohistochemistry the combined positive score (CPS) for PD-L1 is <1. 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 07/10/2024 8:47 AM [facility] Gross Description A: Esophagus, lower esophageal ulcer at 37cm: Multiple soft light castillo tissue fragments, 0.7 x 0.6 x 0.1 cm in aggregate, entirely submitted in A1. ET 07/10/2024 8:47 AM [employer] Biomarker Block(s) Block for biomarker testing: A1 07/10/2024 8:47 AM [employer] [facility] Disclaimer "Some tests reported here may have been developed and performance characteristics determined by [facility] Pathology and Laboratory Medicine. These tests have not been specifically cleared or approved by the U.S. Food and Drug Administration. If applicable, controls were reviewed and showed appropriate reactivity." 07/10/2024 8:47 AM GREETING CARD EDITOR [facility] Tissue (Esophagus) 06/30/2024 12:51 PM GREETING CARD EDITOR 06/30/2024 2:51 PM GREETING CARD EDITOR us Brandon Galo MD LAB PATHOLOGY ORDERA BLES Edited Result - Final [facility] [employer] [facility] [employer] [facility] [address] [place] [address], [place] * (ABNORMAL) POC Chem 8 (06/30/2024 11:10 AM GREETING CARD EDITOR) Only the most recent of2 resultswithin the time period is included. POC Sodium 136(L) 138 - 146 mmol/L 06/30/2024 11:13 AM [facility] POC Potassium 4.5 3.5 - 4.9 mmol/L 06/30/2024 11:13 AM [facility] POC Chloride 100 98 - 109 mmol/L 06/30/2024 11:13 AM [facility] POC VTCO2 27 24 - 29 mmol/L 06/30/2024 11:13 AM [facility] POC Anion Gap 14 10 - 20 mmol/L 06/30/2024 11:13 AM [facility] POC BUN 30(H) 8 - 26 mg/dL 06/30/2024 11:13 AM [facility] POC Creatinine 1.1 0.6 - 1.3 mg/dL 06/30/2024 11:13 AM [facility] Comment:Medications, especia lly hydroxyurea or supplements, such as ascorbate, can interfere with test results causing a falsely and significantly higher result than expected. If a problem is suspected with a patient's result, a sample should be sent to the laboratory for confirmatory testing. POC I Glu 182(H) 70 - 99 mg/dL 06/30/2024 11:13 AM [facility] Comment:Medications, especia lly hydroxyurea or supplements, such as ascorbate, can interfere with test results causing a falsely and significantly higher result than expected. If a problem is suspected with a patient's result, a sample should be sent to the laboratory for confirmatory testing. POC Ionized Calcium 1.26 1.12 - 1.32 mmol/L 06/30/2024 11:13 AM [facility] POC Hct 39.0 38.0 - 51.0 % 06/30/2024 11:13 AM [facility] POC Hgb 13.3 12.0 - 17.0 gm/dL 06/30/2024 11:13 AM [facility] Comment:Hematocrit values fr om the iSTAT are [...] standard. POC Sample Type Venous 11:13 AM [facility] POC eGFR 77 >=60 mL/min/1.7 3 sq. m 06/30/2024 11:13 AM [facility] Comment: The eGFRcr is calculated with the [...] for CKD. Blood 06/30/2024 11:1 0 AM GREETING CARD EDITOR 06/30/2024 11:13 AM GREETING CARD EDITOR Narrative [facility] - 06/30/2024 11:13 AM GREETING CARD EDITOR Method description: The i-STAT is an analyzer [...] DE VICE Final Result Performing Organization Address [facility] de Phone Number [facility] Unless otherwise noted, all lab tests performed by: Division of Pathology and Laboratory Medicine [address] [place] [address] * EKG, 12-Lead (Scheduled) (06/29/2024) Only the most recent of3 resultswithin the time period is included. Mary Kay Santamaria APRN ECG ORDERABLES Final R esult Performing Organization Address [facility] de Phone Number [facility] * PETCT F18 FDG (Fluorodeoxyglucose) with contrast (06/20/2024 12:42 PM GREETING CARD EDITOR) Anatomical Region Laterality Modality Whole Body Positron Emissio n Tomography (PET) 06/20/2024 3:10 PM GREETING CARD EDITOR Impressions 06/20/2024 4:38 PM GREETING CARD EDITOR Biopsy-proven malignancy in the region of the [...] and potentially actionable. Narrative 06/20/2024 4:38 PM GREETING CARD EDITOR FULL RESULT: Examination: 18F-FDG-PET/CT with contrast, 06/20/2024 [...] * Transferrin with TIBC (06/01/2024 11:10 AM GREETING CARD EDITOR) Transferrin 211 200 - 360 mg/dL 06/01/2024 12:15 PM GREETING CARD EDITOR [facility] Total Iron Binding Capacity 295 250 - 450 mcg/dL 06/01/2024 12:15 PM GREETING CARD EDITOR [facility] Blood Peripheral blood specimen / Unknown Venipuncture / Unknown 06/01/2024 11:10 AM GREETING CARD EDITOR 06/01/2024 11:23 AM GREETING CARD EDITOR Result [facility] Marianela Hutchinson MD LAB BLOOD ORDERABLES Final Re sult Performing Organization Address City/[facility] Co de Phone Number [facility] Unless otherwise noted, all lab tests performed by: Division of Pathology and Laboratory Medicine [address] [place] [phone] * (ABNORMAL) Iron Level (06/01/2024 11:10 AM GREETING CARD EDITOR) Iron Level 38(L) 59 - 158 mcg/dL 06/01/2024 12:15 PM GREETING CARD EDITOR [facility] Is patient fasting? No 06/01/2024 12:15 PM GREETING CARD EDITOR [facility] Blood Peripheral blood specimen / Unknown Venipuncture / Unknown 06/01/2024 11:10 AM GREETING CARD EDITOR 06/01/2024 11:23 AM GREETING CARD EDITOR Result [facility] Marianela Hutchinson MD LAB BLOOD ORDERABLES Final Re sult [facility] Unless otherwise noted, all lab tests performed by: Division of Pathology and Laboratory Medicine [address] [place] [phone] [facility] Unless otherwise noted, all lab tests performed by: Division of Pathology and Laboratory Medicine [address] [place] [phone] * Ferritin Level (06/01/2024 11:10 AM GREETING CARD EDITOR) Ferritin Level 59 30 - 400 ng/mL 06/01/2024 12:15 PM GREETING CARD EDITOR [facility] Blood Peripheral blood specimen / Unknown Venipuncture / Unknown 06/01/2024 11:10 AM GREETING CARD EDITOR 06/01/2024 11:23 AM GREETING CARD EDITOR Narrative [facility] - 06/01/2024 12:15 PM GREETING CARD EDITOR Reference range established for age 20 - 60 years us Marianela Hutchinson MD LAB BLOOD ORDERABLES Final Re sult [facility] Unless otherwise noted, all lab tests performed by: Division of Pathology and Laboratory Medicine [address] [place] [phone] * Tip Verification Central Vascular Access Device (04/15/2024 3:50 PM GREETING CARD EDITOR) Narrative John Fong MD - 04/15/2024 3:50 PM GREETING CARD EDITOR John Fong MD 04/15/2024 3:50 PM Central Vascular Access Device Tip Verification Performed by: John Fong MD Authorized by: John Fong MD [employer] Properties Date device placed: 04/15/2024 Device placement location: [facility] Catheter Type: Implanted venous port Catheter lumen: Single lumen Vein location: Internal jugular vein Laterality: Right Tip in good position and cleared for infusion us John Fong MD IV THERAPY ORDERABLES Final Re sult * XR Chest 1 View Portable (04/15/2024 2:45 PM GREETING CARD EDITOR) Anatomical Region Laterality Modality Chest Digital Radiogra phy 04/15/2024 2:50 PM GREETING CARD EDITOR Impressions 04/15/2024 2:53 PM GREETING CARD EDITOR 1. Right infusion port catheter terminates over [...] and potentially actionable. Narrative 04/15/2024 2:53 PM GREETING CARD EDITOR FULL RESULT: Examination: XR CHEST 1 VW [...] IMAGING ORDERAB LES Final Result * Cytology Non-Cordwainer Interpretation (04/15/2024 12:33 PM GREETING CARD EDITOR) Gross Description 4 Pap Stain Slides 750 ml. clear yellow fluid Specimen concentrated by cytocentrifugation technique 4 4:07 PM GREETING CARD EDITOR [facility] Major Classification [facility]/benign 4 4:07 PM GREETING CARD EDITOR [facility] Diagnosis Peritoneal washing: No metastatic carcinoma identified Reactive mesothelial cells and histiocytes 4 4:07 PM GREETING CARD EDITOR [facility] Retained/Biomark er Testing SR:4S 4 4:07 PM GREETING CARD EDITOR [facility] Informational Points Some tests reported here may have been developed and performance characteristics determined by [facility] Pathology and Laboratory Medicine. These tests have not been specifically cleared or approved by the U.S. Food and Drug Administration. 4 4:07 PM GREETING CARD EDITOR [facility] Washing (Peritoneal Washing) 04/15/2024 12:33 PM GREETING CARD EDITOR 04/15/2024 1:10 PM GREETING CARD EDITOR John Fong MD LAB CYTOLOGY ORDERABLES Final Result [facility] [address] [place] [phone], * Pathology Surgical Interpretation (04/15/2024 12:13 PM GREETING CARD EDITOR) Only the most recent of2 resultswithin the time period is included. Submitted Clinical History Adenocarcinoma of stomach [C16.9] 04/20/2024 8:13 PM GREETING CARD EDITOR [facility] Diagnosis A. Falciform ligament, resection: Fibroadipose tissue, no tumor present 04/20/2024 8:13 PM GREETING CARD EDITOR [facility] Gross Description A: Falciform ligament, falciorm ligament biopsy....or 16: Consists of a fragment of castillo-yellow, lobulated fat (0.8 x 0.6 x 0.5 cm) entirely submitted in cassette A1. EF 04/20/2024 8:13 PM GREETING CARD EDITOR [facility] Disclaimer "Some tests reported here may have been developed and performance characteristics determined by [facility] Pathology and Laboratory Medicine. These tests have not been specifically cleared or approved by the U.S. Food and Drug Administration. If applicable, controls were reviewed and showed appropriate reactivity." 04/20/2024 8:13 PM GREETING CARD EDITOR [facility] Tissue (Falciform Ligament) 04/15/2024 12:13 PM GREETING CARD EDITOR 04/15/2024 1:18 PM GREETING CARD EDITOR John Fong MD LAB PATHOLOGY ORDERABLES Final Result [address] [address], [place] * [place] Central Venous Place Exchange (04/15/2024 11:40 AM GREETING CARD EDITOR) Narrative Systemgenerated, Documentation - 04/15/2024 11:40 AM GREETING CARD EDITOR This procedure requires no interpretation from the radiologist. John Fong MD IMG FLUOROSCOPY ORDERABLES Fin al Result * CT Abdomen Pelvis with IV Contrast (04/12/2024 11:18 AM GREETING CARD EDITOR) Anatomical Region Laterality Modality Abdomen, Pelvis Computed Tomogra phy 04/12/2024 11:5 2 AM GREETING CARD EDITOR Impressions 04/12/2024 12:11 PM GREETING CARD EDITOR Wall thickening and slight mucosal irregularity of [...] and potentially actionable. Narrative 04/12/2024 12:11 PM GREETING CARD EDITOR FULL RESULT: Examination: CT ABDOMEN PELVIS W [...] and potentially actionable. us Nghia Zhu MD IM CT ORDERABLES Final Result * Fractionated Bilirubin (04/12/2024 9:04 AM GREETING CARD EDITOR) Bilirubin Direct 04/12/20 9:47 AM GREETING CARD EDITOR [facility] Comment: Direct and indirect bilirubin will not be reported when Total bilirubin result is <0.3 mg/dL Indocyanine Green (ICG) may cause falsely elevated bilirubin results. Total and direct bilirubin must not be measured from samples containing indocyanine green. Bilirubin Indirect 2023 9:47 AM [facility] Comment:Direct and indirect bilirubin will not be reported when Total bilirubin result is <0.3 mg/dL Bilirubin Total <0.3 0.0 - 1.2 mg/dL 04/12/2024 9:47 AM [facility] Comment: Direct and indirect bilirubin will not [...] Unknown Venipuncture / Unknown 04/12/2024 9:04 AM GREETING CARD EDITOR 04/12/2024 9:08 AM GREETING CARD EDITOR us Nghia Zhu MD LAB BLOOD ORDERABLES Final Resu lt [facility] Unless otherwise noted, all lab tests performed by: Division of Pathology and Laboratory Medicine [address] [place] [phone] * (ABNORMAL) Lipase (04/12/2024 9:04 AM GREETING CARD EDITOR) Lipase Level 311(H) 13 - 60 U/L 04/12/2024 10:09 AM GREETING CARD EDITOR [facility] Blood Peripheral blood specimen / Unknown Venipuncture / Unknown 04/12/2024 9:04 AM GREETING CARD EDITOR 04/12/2024 9:08 AM GREETING CARD EDITOR Narrative [facility] - 04/12/2024 10:09 AM GREETING CARD EDITOR Reference range established based on adult population us Nghia Zhu MD LAB BLOOD ORDERABLES Final Resu lt [facility] Unless otherwise noted, all lab tests performed by: Division of Pathology and Laboratory Medicine [address] [place] [phone] * (ABNORMAL) Amylase (04/12/2024 9:04 AM GREETING CARD EDITOR) Amylase Level 171(H) 28 - 100 U/L 04/12/2024 9:47 AM GREETING CARD EDITOR [facility] Blood Peripheral blood specimen / Unknown Venipuncture / Unknown 04/12/2024 9:04 AM GREETING CARD EDITOR 04/12/2024 9:08 AM GREETING CARD EDITOR us Nghia Zhu MD LAB BLOOD ORDERABLES Final Resu lt Performing Organization Address [facility] Co de Phone Number [facility] Unless otherwise noted, all lab tests performed by: Division of Pathology and Laboratory Medicine [address] [place] [phone] * TSH (04/09/2024 11:09 AM GREETING CARD EDITOR) Only the most recent of2 resultswithin the time period is included. Pathologist [facility] Thyroid Stimulating Hormone 1.53 0.27 - 4.20 mcunit/mL 04/09/2024 12:23 PM GREETING CARD EDITOR [facility] Blood Peripheral blood specimen / Unknown Venipuncture / Unknown 04/09/2024 11:09 AM GREETING CARD EDITOR 04/09/2024 11:19 AM GREETING CARD EDITOR us Ceci Nicholson MD LAB BLOOD ORDERABLES Final Resu lt [facility] Unless otherwise noted, all lab tests performed by: Division of Pathology and Laboratory Medicine [address] [place] [phone] * (ABNORMAL) Hemoglobin A1c (04/09/2024 11:09 AM GREETING CARD EDITOR) Only the most recent of3 resultswithin the time period is included. Hemoglobin A1c 7.0(H) 4.3 - 5.6 % 04/09/2024 12:14 PM GREETING CARD EDITOR [facility] Blood Peripheral blood specimen / Unknown Venipuncture / Unknown 04/09/2024 11:09 AM GREETING CARD EDITOR 04/09/2024 11:19 AM GREETING CARD EDITOR Narrative [facility] - 04/09/2024 12:14 PM GREETING CARD EDITOR HbA1c values >=6.5% are diagnostic of diabetes mellitus. Diagnosis should be confirmed by repeat testing. Therapeutic Action suggested: >8.0% HbA1c; Goal of therapy: <7.0% HbA1c Ceci Nicholson MD LAB BLOOD ORDERABLES Final Resu lt [facility] Unless otherwise noted, all lab tests performed by: Division of Pathology and Laboratory Medicine [address] [place] [phone] * Pathology Outside Interpretation (04/02/2024) Materials Received Accession#, Stained, Block, Unstained Collected Received A. [id number], 20 SS, 0 BLOCKS, 0 USS 04/02/2024 04/22/2024 04/22/2024 5:36 PM GREETING CARD EDITOR [facility] Diagnosis Outside ([id number], 20 SS, 0 BLOCKS, 0 USS, collected [...] FEATURES. See comment. CLEMENTE/ISAURO 04/22/2024 5:36 PM GREETING CARD EDITOR [facility] Comment Part A. There is no evidence of malignancy on H&E and immunohistochemical stain for Cytokeratin AE1/AE3. Of note, the biopsy may not be communications representative of the entire lesion. Please correlate [...] immunohistochemistry: Negative (Score: 0) 04/22/2024 5:36 PM GREETING CARD EDITOR [facility] Biomarker Block(s) Block for biomarker testing: C1 Normal block: N/A 04/22/2024 5:36 PM GREETING CARD EDITOR [facility] Disclaimer "Some tests reported here may have been developed and performance characteristics determined by [facility] Pathology and Laboratory Medicine. These tests have not been specifically cleared or approved by the U.S. Food and Drug Administration. If applicable, controls were reviewed and showed appropriate reactivity." 04/22/2024 5:36 PM GREETING CARD EDITOR [facility] Tissue 04/02/2024 04/22/2024 6:4 0 AM GREETING CARD EDITOR us Sybil Edmonds MD LAB PATHOLOGY ORDERABLES Final R esult [facility] [address] [place] [phone], [place] * OSI CT Abdomen and Pelvis (04/01/2024 8:21 AM GREETING CARD EDITOR) Only the most recent of2 resultswithin the time period is included. Narrative Systemgenerated, Documentation - 04/27/2024 8:22 AM GREETING CARD EDITOR Study acquired at another institution. For comparison only. No [facility] originated interpretation requested or available. us Eaglewerner Zhu DO IMG OUTSIDE IMAGE ORDERAB LES Final Result * OSI CT CHEST ABDOMEN PELVIS (03/23/2024 7:37 PM GREETING CARD EDITOR) Narrative Systemgenerated, Documentation - 04/09/2024 7:37 PM GREETING CARD EDITOR Study acquired at another institution. For comparison only. No [facility] originated interpretation requested or available. Margoth Souza MD IMG OUTSIDE IMAGE ORDERABLES Fin al Result * OSI Chest (03/23/2024 7:37 PM GREETING CARD EDITOR) Only the most recent of4 resultswithin the time period is included. Narrative Systemgenerated, Documentation - 04/09/2024 7:37 PM GREETING CARD EDITOR Study acquired at another institution. For comparison only. No [facility] originated interpretation requested or available. us Margoth Souza MD IMG OUTSIDE IMAGE ORDERABLES Fin al Result * OSI CT Chest (03/22/2024 8:21 AM GREETING CARD EDITOR) Narrative Systemgenerated, Documentation - 04/27/2024 8:21 AM GREETING CARD EDITOR Study acquired at another institution. For comparison only. No [facility] originated interpretation requested or available. us Eagle Zhu DO IMG OUTSIDE IMAGE ORDERAB LES Final Result * (ABNORMAL) Basic Metabolic Panel- Total Calcium (01/03/2024 2:59 PM CDT) Only the most recent of7 resultswithin the time period is included. eGFR 71 >=60 mL/min/1. 73 sq. m 01/03/2024 3:44 PM CDT [facility] [place] Comment: The eGFRcr is calculated with the [...] - 10.2 mg/dL 01/03/2024 3:[address] [facility] Sodium Level 139 136 - 145 mmol/L 01/03/2024 3:[address] [facility] Potassium Level 3.9 3.4 - 4.5 mmol/L 01/03/2024 3:[address] [facility] Chloride 103 98 - 107 mmol/L 01/03/2024 3:[address] [facility] CO2 28 22 - 29 mmol/L 01/03/2024 3:[address] [facility] Anion Gap 8 4 - 14 mmol/L 01/03/2024 3:[address] [facility] Creatinine 1.18(H) 0.67 - 1.17 mg/dL 01/03/2024 3:[address] [facility] BUN 15 6 - 23 mg/dL 01/03/2024 3:[address] [facility] Glucose Level 137(H) 70 - 99 mg/dL 01/03/2024 3:[address] [facility] Comment: Effective 12/14/15, the glucose reference intervals have been updated based on [place] [employer] guidelines (Standards of Medical Care [...] 01/03/2024 3:02 PM CDT us Alicia Mcmanus CRYOLITE RECOVERY OPERATOR LAB BLOOD ORDERABLES Final Result [facility] Unless otherwise noted, all lab tests performed by: Division of Pathology and Laboratory Medicine [address] [place] [phone] * Zinc Transporter 8 Ab (01/03/2024 4:22 AM CDT) Zinc T8 AB <15.0 <15.0 U/mL 01/15/2024 11:18 AM CDT [facility] TIFF Comment: ADDITIONAL INFORMATION This test has been modified from the duty officer's instructions. Its performance characteristics were determined by [facility] in a manner consistent with CLIA requirements. This test has not been cleared or approved by the U.S. Food and Drug Administration. Test Performed by: [place] [address] Manufacturing Automation Engineer: Mary Jane Topete Ph.D.; CLIA# [id number] Blood Peripheral blood specimen / Unknown Venipuncture / Unknown 01/03/2024 4:22 AM CDT 01/03/2024 4:55 AM CDT us Alicia Mcmanus APRN LAB BLOOD ORDERABLES Final Result [facility] TIFF * Islet Antigen 2 (IA-2) Antibody (01/03/2024 4:22 AM CDT) IA-2 Antibody 0.00 <=0.02 nmol/L 01/07/2024 12:20 AM CDT [facility] TIFF Comment: ADDITIONAL INFORMATION This test was developed and its performance characteristics determined by [facility] in a manner consistent with CLIA requirements. This test has not been cleared or approved by the U.S. Food and Drug Administration. Test Performed by: [address] [id number] Manufacturing Automation Engineer: Mary Jane Topete Ph.D.; CLIA# [id number] Blood Peripheral blood specimen / Unknown Venipuncture / Unknown 01/03/2024 4:22 AM CDT 01/03/2024 4:55 AM CDT Alicia Mcmanus FRANK LAB BLOOD ORDERABLES Final Result Performing Organization Address [facility] Co de Phone Number JULIAN FERNANDO MATTHEW * GREG Ab Assay (01/03/2024 4:22 AM CDT) Pathologist [facility] [id number] Ab-[place] 0.00 <=0.02 nmol/L 01/07/2024 12:01 AM CDT [facility]FF Comment: ADDITIONAL INFORMATION This test was developed and its performance characteristics determined by [facility] in a manner consistent with CLIA requirements. This test has not been cleared or approved by the U.S. Food and Drug Administration. Test Performed by: [place] [address] Manufacturing Automation Engineer: Mary Jane Topete Ph.D.; CLIA# [id number] Blood Peripheral blood specimen / Unknown Venipuncture / Unknown 01/03/2024 4:22 AM CDT 01/03/2024 4:55 AM CDT Alicia Restreporoy FRANK LAB BLOOD ORDERABLES Final Result Performing Organization Address [facility] de Phone Number JULIAN FERNANDO MATTHEW * Insulin Ab (01/03/2024 4:22 AM CDT) Pathologist [facility] Insulin Ab-[place] 0.00 0.00 - 0.02 nmol/L 01/06/2024 5:14 PM CDT [facility] TIFF Comment: ADDITIONAL INFORMATION This test was developed and its performance characteristics determined by [facility] in a manner consistent with CLIA requirements. This test has not been cleared or approved by the U.S. Food and Drug Administration. Test Performed by: [place] [id number] Manufacturing Automation Engineer: Mary Jane Topete Ph.D.; CLIA# [id number] Blood Peripheral blood specimen / Unknown Venipuncture / Unknown 01/03/2024 4:22 AM CDT 01/03/2024 4:55 AM CDT Alicia Mcmanus APRN LAB BLOOD ORDERABLES Final Result [facility] * C Peptide (01/03/2024 4:22 AM CDT) Pathologist [facility] C-Peptide 2.12 1.10 - 4.40 ng/mL 01/03/2024 5:[address] [facility] Blood Peripheral blood specimen / Unknown Venipuncture / Unknown 01/03/2024 4:22 AM CDT 01/03/2024 4:55 AM CDT Alicia Mcmanus APRN LAB BLOOD ORDERABLES Final Result [facility] Unless otherwise noted, all lab tests performed by: Division of Pathology and Laboratory Medicine [address] [place] [address] [phone] * (ABNORMAL) Hemogram (01/02/2024 7:20 PM CDT) Pathologist [facility] White Blood Cell 13.8(H) 4.1 - 10.5 K/uL 01/02/2024 7:[address] [facility] Red Blood Cell 4.74 4.30 - 6.04 M/uL 01/02/2024 7:[address] [facility] Hemoglobin 12.2(L) 13.3 - 17.4 g/dL 01/02/2024 7:[address] [facility] Hematocrit 38.6(L) 39.5 - 51.8 % 01/02/2024 7:[address] [facility] Mean Cell Volume 81(L) 82 - 99 fL 01/02/2024 7:[address] [facility] Mean Cell Hemoglobin 25.7(L) 26.6 - 33.2 pg 01/02/2024 7:[address] [facility] Mean Cell Hemoglobin Concentration 31.6 31.1 - 35.2 g/dL 01/02/2024 7:[address] [facility] RDW-SD 39.1 37.5 - 49.7 fL 01/02/2024 7:[address] [facility] Red Cell Diameter Width 13.1 11.6 - 15.5 % 01/02/2024 7:[address] [facility] Platelet 291 160 - 397 K/uL 01/02/2024 7:[address] [facility] Mean Platelet Volume 9.7 9.1 - 12.6 fL 01/02/2024 7:[address] [facility] INRBC 0.0 0.0 - 0.1 /100 WBC 01/02/2024 7:[address] [facility] Comment: The INRBC (instrument NRBC) value [...] PRICE LAB BLOOD ORDERABLES Final R esult [facility] Unless otherwise noted, all lab tests performed by: Division of Pathology and Laboratory Medicine [address] [place] [address] [phone] * (ABNORMAL) Beta Hydroxy Quant (01/02/2024 7:20 PM CDT) Only the most recent of2 resultswithin the time period is included. Beta-Hydroxybuty rate 0.85(H) 0.02 - 0.27 mmol/L 01/02/2024 8:[address] [facility] Is patient fasting? No 01/02/2024 8:[address] [facility] Comment:A fasting specimen i s recommended and results obtained from non-fasting specimens should be interpreted with caution using reference ranges based on fasting status and in conjunction with clinical context. Blood Peripheral blood specimen / Unknown Venipuncture / Unknown 01/02/2024 7:20 PM CDT 01/02/2024 7:24 PM CDT Narrative [facility] - 01/02/2024 8:01 PM CDT Reference range based on fasting. us Alicia Mcmanus APRN LAB BLOOD ORDERABLES Final Result [facility] Unless otherwise noted, all lab tests performed by: Division of Pathology and Laboratory Medicine [address] [place] [phone] * (ABNORMAL) ABG+ (ABG, Na, K, Cl, Glu, Hgb, Hct, Lactate, Ion Ca) (01/02/2024 10:38 AM CDT) Only the most recent of2 resultswithin the time period is included. Sodium Arterial 140 136 - 146 mmol/L 01/02/2024 10:[address] [facility] Potassium Arterial 3.7 3.4 - 4.5 mmol/L 01/02/2024 10:[address] [facility] Chloride Arterial 103 98 - 106 mmol/L 01/02/2024 10:[address] [facility] Glucose Arterial 270(H) 70 - 105 mg/dL 01/02/2024 10:[address] [facility] Hgb Art 12.9(L) 13.5 - 17.5 g/dL 01/02/2024 10:[address] [facility] Hematocrit Arterial 40(L) 42 - 52 % 01/02/2024 10:[address] [facility] Lactate Arterial 1.0(H) 0.4 - 0.8 mmol/L 01/02/2024 10:[address] [facility] Calcium Ionized Arterial 1.14(L) 1.15 - 1.29 mmol/L 01/02/2024 10:[address] [facility] pH Arterial 7.35 7.35 - 7.45 01/02/2024 10:[address] [facility] P CO2 Arterial 42.9 35.0 - 48.0 mmHg 01/02/2024 10:[address] [facility] P O2 Arterial 164(H) 83 - 108 mmHg 01/02/2024 10:[address] [facility] Bicarbonate Arterial 24 21 - 28 mmol/L 01/02/2024 10:[address] [facility] WB Anion Gap 13 7 - 16 mmol/L 01/02/2024 10:[address] [facility] Base Excess Arterial -2 -2 - 3 mmol/L 01/02/2024 10:[address] [facility] Oxygen Saturation Arterial 99 95 - 99 % 01/02/2024 10:[address] [facility] Oxygen FLOW Rate/ FiO2 01/02/2024 10:[address] [facility] O2 Therapy 01/02/2024 10:[address] [facility] Art Kirill Test Not Applicable (Arterial Line Draw) 01/02/2024 10:[address] [facility] Blood Arterial blood specimen / Unknown Arterial Line / Unknown 01/02/2024 10:38 AM CDT 01/02/2024 10:41 AM CDT Narrative [facility] - 01/02/2024 10:44 AM CDT The [...] MD LAB BLOOD ORDERABLES Final Re sult [facility] Unless otherwise noted, all lab tests performed by: Division of Pathology and Laboratory Medicine [facility] [place] [address] * Intraoperative Ultrasound - For Image Storage [...] EXP DATE 01/22/2024 12/23/2023 2:[address] [facility] Blood Peripheral blood specimen / Unknown Venipuncture / Unknown 12/23/2023 8:51 AM CDT 12/23/2023 9:00 AM CDT Margoth Souza MD BLOOD BANK TEST ORDERABLES Final Result [facility] [address] [place] [address] * Preop Updated Expiration (12/23/2023 8:51 AM CDT) PREOP STATUS 01/02/2024 11:[address] [facility] PREOP EXP DATE 01/02/2024 01/02/2024 11:[address] [facility] Blood Peripheral blood specimen / Unknown Venipuncture / Unknown 12/23/2023 8:51 AM CDT 12/23/2023 9:00 AM CDT us Margoth Souza MD BLOOD BANK TEST ORDERABLES Final Result [facility] [address] [place] [address] * (ABNORMAL) Urinalysis with Reflex Culture (12/23/2023 8:51 AM CDT) Only the most recent of2 resultswithin the time period is included. Urine Appearance Clear Clear 12/23/19 9:[address] [facility] Urine Color Straw Colorless, Straw, Yellow, Dark Yellow, Straw-Yellow 12/23/2023 9:[address] [facility] Urine Specific [place] 1.032 1.003 - 1.035 12/23/2023 9:[address] [facility] Urine pH 6.0 5.0 - 8.0 12/23/2023 9:[address] [facility] Urine Glucose >=1000(A) Negative mg/dL 12/23/2023 9:[address] [facility] Urine Ketones Negative Negative mg/dL 12/23/2023 9:[address] [facility] Urine Blood Negative Negative 12/23/2023 9:[address] [facility] Urine Protein 30(A) Negative mg/dL 12/23/2023 9:[address] [facility] Urine Bilirubin Negative Negative 9:[address] [facility] Urine Urobilinogen Negative Negative 12/23/2023 9:[address] [facility] Urine Nitrite Negative Negative 12/23/2023 9:[address] [facility] Urine Leukocyte Esterase Negative Negative 12/23/2023 9:[address] [facility] Urine Mucous Not Seen Not Seen, Trace /HPF 12/23/2023 9:[address] [facility] Urine Bacteria Not Seen Not Seen /HPF 12/23/2023 9:[address] [facility] Urine Squamous Epithelial Cells OCC Not Seen, OCC, Rare /HPF 12/23/2023 9:[address] [facility] Urine WBC <1 <=2 /HPF 12/23/2023 9:[address] [facility] Urine RBC 1 <=2 /HPF 12/23/2023 9:[address] [facility] Urine Voided urine specimen / Unknown Non-blood Collection / Unknown 12/23/2023 8:51 AM CDT 12/23/2023 9:10 AM CDT Narrative [facility] - 12/23/2023 9:33 AM CDT Some reporting parameters within the Urinalysis test have changed due to the implementation of new instrumentation in the Main [place], allowing greater sensitivity of measurement. Urinalysis results reported by the [facility] using existing instrumentation, as well as Urinalysis testing performed manually or by back-up methodology at the main [place], will remain relatively unchanged. New reporting parameters and units will now be reported for all campuses. us Margoth Souza MD URINE ORDERABLES Final Result [facility] Unless otherwise noted, all lab tests performed by: Division of Pathology and Laboratory Medicine [address] [place] [phone] * 30-Day Pre-Op Type and Screen (12/23/2023 8:51 AM CDT) Only the most recent of2 resultswithin the time period is included. ABORh O POS 12/23/2023 8:[address] [facility] ABSC Negative 12/23/2023 8:45 AM CDT [facility] BB Criteria Met Criteria met 12/23/2023 8:[address] [facility] Historical Record Check Complete 12/23/2023 8:[address] [facility] Blood Peripheral blood specimen / Unknown Venipuncture / Unknown 12/23/2023 8:51 AM CDT 12/23/2023 9:00 AM CDT Margoth Souza MD BLOOD BANK TEST ORDERABLES Final Result [facility] [address] [place] [address] * TMP Interpretation Exception PreOp Expiration (12/23/2023 8:51 AM CDT) Only the most recent of2 resultswithin the time period is included. TMP Exception 12/24/2023 10:[address] [facility] TMP Signature . 12/24/2023 10:[address] [facility] Blood Peripheral blood specimen / Unknown Venipuncture / Unknown 12/23/2023 8:51 AM CDT 12/23/2023 9:00 AM CDT Margoth Souza MD BLOOD BANK TEST ORDERABLES Final Result [facility] [address] [place] [address] * ACTH (12/09/2023 9:45 AM CDT) Only the most recent of2 resultswithin the time period is included. ACTH 22 7 - 63 pg/mL 12/09/2023 12:[address] [facility] Blood Peripheral blood specimen / Unknown Venipuncture / Unknown 12/09/2023 9:45 AM CDT 12/09/2023 9:52 AM CDT Narrative [facility] - 12/09/2023 12:19 PM CDT Reference range established based on adult population (7 - 10am draws). No established reference values for p.m. draws. Results greater than 1826 pg/mL may not be reliable due to matrix effect with extended dilution as it exceeds the duty officer's recommended limit. ACTH reference intervals are established for the morning hours from 7-10 am. Due to the circadian rhythm of ACTH levels in plasma, the sample collection time must be noted. Caution should be exercised when interpreting such values and done in conjunction with clinical context. Veronica Del Castillo APRN LAB BLOOD ORDERABLES Final Result [facility] Unless otherwise noted, all lab tests performed by: Division of Pathology and Laboratory Medicine [address] [place] [id number] * DHEA Sulfate (12/09/2023 9:45 AM CDT) Pathologist [facility] DHEAS-[place] [address] 20 - 299 mcg/dL 12/10/2023 12:10 PM CDT [facility] Comment: Test Performed by: [facility] [place] [address] Manufacturing Automation Engineer: Mary Jane Topete Ph.D.; CLIA# [id number] Blood Peripheral blood specimen / Unknown Venipuncture / Unknown 12/09/2023 9:45 AM CDT 12/09/2023 9:56 AM CDT [facility] APRN LAB BLOOD ORDERABLES Final Result [facility] TIFF * Cortisol, Total (12/09/2023 9:45 AM CDT) Only the most recent of4 resultswithin the time period is included. Pathologist [facility] Cortisol 11.39 4.82 - 19.50 mcg/dL 12/09/2023 11:00 AM CDT [facility] Blood Peripheral blood specimen / Unknown Venipuncture / Unknown 12/09/2023 9:45 AM CDT 12/09/2023 9:55 AM CDT Narrative [facility] - 12/09/2023 11:00 AM CDT [...] (4-8 pm): 2.47 - 11.9 mcg/dL us DeniaZora Abundio MARIE LAB BLOOD ORDERABLES Final Result [facility] Unless otherwise noted, all lab tests performed by: Division of Pathology and Laboratory Medicine [address] [place] [address] * IR CT GUIDED BIOPSY RENAL (10/03/2023 10:27 AM CDT) Anatomical Region Laterality Modality Abdomen/Pelvis, Organ (liver/spleen/kidney) Computed Tomography Narrative 10/04/2023 9:03 AM CDT Table formatting from the original result was not included. Date of Procedure: 10/03/23 Attending Physician: Kumar Comer MD Supervisor Drawing: None Pre Procedure Diagnosis: Renal mass Post [...] second(s) 10/03/2023 9:57 AM CDT [facility] International Normalization Ratio 0.98 0.87 - 1.12 10/03/2023 9:57 AM CDT [facility] Blood Peripheral blood specimen / Unknown Venipuncture / Unknown 10/03/2023 9:27 AM CDT 10/03/2023 9:28 AM CDT us Abilio Ng PA-C LAB BLOOD ORDERABLES Final Result [facility] [address] [place] [address] * Type and Screen (10/03/2023 9:27 AM CDT) ABORh O POS 10/03/2023 9:[address] [facility] ABSC Negative 10/03/2023 9:17 AM CDT [facility] Clot Expiration 10/06/2023 23:59 10/03/2023 9:[address] [facility] Historical Record Check Complete 10/03/2023 9:[address] [facility] Blood Peripheral blood specimen / Unknown Venipuncture / Unknown 10/03/2023 9:27 AM CDT 10/03/2023 9:52 AM CDT us Conrado-Dannielle Horn Hernandez [facility] TEST ORDERABLES Final Result [facility] Transfusion [facility] [id number] [place] [address] * X-ray Chest 2 Views (09/19/2023 9:24 [...] unexpected and potentially actionable. Shazia Arriaza MD [facility] [place] [facility] [place] ORD ERABLES Final Result * Metanephrines Fractionated (09/16/2023 4:24 PM CDT) [facility] Normetane Free-Maxwell 0.43 <0.90 nmol/L 09/19/2023 2:59 PM CDT [facility] Metanephr Free-Maxwell <0.20 <0.50 nmol/L 09/19/2023 2:59 PM CDT [facility] TIFF Comment: ADDITIONAL INFORMATION This test was developed and its performance characteristics determined by [facility] in a manner consistent with CLIA requirements. This test has not been cleared or approved by the U.S. Food and Drug Administration. Test Performed by: [facility] - [address] [address] Manufacturing Automation Engineer: Scot Skelton M.D. Ph.D.; CLIA# [id number] Blood Peripheral blood specimen / Unknown Venipuncture / Unknown 09/16/2023 4:24 PM CDT 09/16/2023 4:41 PM CDT Shazia Arriaza MD LAB BLOOD ORDERABLES Final Result JULIAN FERNANDO MATTHEW * Hepatitis C Virus Antibody (09/16/2023 4:24 PM CDT) [facility] HCVAb. Non Reactive Non Reactive 09/17/2023 9:[address] [facility] Blood Peripheral blood specimen / Unknown Venipuncture / Unknown 09/16/2023 4:24 PM CDT 09/16/2023 4:41 PM CDT Narrative [facility] - 09/17/2023 9:11 AM CDT Antibody detection in the immunocompromised and immunosuppressed population may be delayed or absent entirely. Therefore serial testing, correlation with other clinical findings, and supplemental testing (if available) should be taken into consideration when interpreting the results. Shazia Arriaza MD LAB BLOOD ORDERABLES Final Result Performing Organization Address City/[facility]/ZIP Co de Phone Number [facility] Unless otherwise noted, all lab tests performed by: Division of Pathology and Laboratory Medicine [address] [place] [phone] * Aldosterone Level (09/16/2023 4:24 PM CDT) [facility] Aldosterone-[place] 8.1 <=21 ng/dL 09/20/2023 1:02 AM CDT JULIAN FERNANDO MATTHEW Comment: ADDITIONAL INFORMATION Reference range for patients 11 years and older is based on upright A.M. collection from subjects without sodium restrictions. This test was developed and its performance characteristics determined by [facility] in a manner consistent with CLIA requirements. This test has not been cleared or approved by the U.S. Food and Drug Administration. Test Performed by: [facility] - [address] [address] Manufacturing Automation Engineer: Scot Skelton M.D. Ph.D.; CLIA# [id number] Blood Peripheral blood specimen / Unknown Venipuncture / Unknown 09/16/2023 4:24 PM CDT 09/16/2023 4:41 PM CDT Shazia Arriaza MD LAB BLOOD ORDERABLES Final Result Performing Organization Address [facility] Co de Phone Number [facility] TIFF * Renin Activity (09/16/2023 4:24 PM CDT) Pathologist [facility] 4.3 ng/mL/h 09/19 3:42 PM CDT [facility] TIFF Comment: REFERENCE VALUE (Peripheral vein specimen) Na-deplete, upright: Mean: 5.9 Range: 2.9-10.8 Na-replete, upright: Mean: 1.0 Range: < or =0.6-3.0 ADDITIONAL INFORMATION Testing performed by Liquid Chromatography-Tandem Mass Spectrometry (LC-MS/MS). This test was developed and its performance characteristics determined by [facility] in a manner consistent with CLIA requirements. This test has not been cleared or approved by the U.S. Food and Drug Administration. Test Performed by: [facility] [place] [address] Manufacturing Automation Engineer: Scot Skelton M.D. Ph.D.; CLIA# [id number] Blood Peripheral blood specimen / Unknown Venipuncture / Unknown 09/16/2023 4:24 PM CDT 09/16/2023 4:41 PM CDT Shazia Arriaza MD LAB BLOOD ORDERABLES Final Result Performing Organization Address [facility] Co de Phone Number [facility] TIFF * Urine Culture (09/16/2023 4:24 PM CDT) Pathologist [facility] Urine Culture Normal site mirna present. Generally of low significance. Correlate with clinical data and culture history. 09/18/2023 8:[address] [facility] Urine Voided urine specimen / Unknown Non-blood Collection / Unknown 09/16/2023 4:24 PM CDT 09/16/2023 4:41 PM CDT us Shazia Arriaza MD MICROBIOLOGY - GENERAL ORD ERABLES Final Result [facility] Unless otherwise noted, all lab tests performed by: Division of Pathology and Laboratory Medicine [address] [place] [id number] * T4 (09/16/2023 4:24 PM CDT) Pathologist [facility] Thyroxine 7.0 4.5 - 11.7 mcg/dL 09/16/2023 5:[address] [facility] Blood Peripheral blood specimen / Unknown Venipuncture / Unknown 09/16/2023 4:24 PM CDT 09/16/2023 4:41 PM CDT us Sahzia Arriaza MD LAB BLOOD ORDERABLES Final Result Performing Organization Address City/[facility]/ZIP Co de Phone Number [facility] Unless otherwise noted, all lab tests performed by: Division of Pathology and Laboratory Medicine [address] [place] [phone] * Confirm ABORh (09/16/2023 4:23 PM CDT) [facility] ABOR Confirm O POS 09/16/2023 4:[address] [facility] Blood Peripheral blood specimen / Unknown Venipuncture / Unknown 09/16/2023 4:23 PM CDT 09/16/2023 4:41 PM CDT Result Awa Arriaza MD BLOOD BANK TEST ORDERABLES Final Result [facility] Transfusion [facility] [address] [place] [address] [id number] [place] [address] after 08/17/2023 Insurance Advance Directives * Full Code (Latest Code Status on File) Date Activated Date Inactivated Comments 04/12/2024 1:24 PM 04/12/2024 5:43 PM * Full Code Date Activated Date Inactivated Comments 01/02/2024 1:48 PM 01/03/2024 7:17 PM Care Teams Hand Bulldozer Relationship Specialty Start Date End Date Margoth Souza MD [address] [place] [phone] [email or web address] PCP - General Urology 07/30/23 04/14/24 Eagle Zhu DO [address] [place] [id number] [email or web address] PCP - External Primary Care Provider Family Practice 04/08/24 Marianela Hutchinson MD [address] [place] [phone] [email or web address] PCP - General Gastrointestinal Medical Oncology 05/04/24 Mary Jane Cassidy MD [address] [place] [phone] [email or web address] Consulting Physician Endocrinology 12/09/23 Barry He MD [address] [place] [phone] [email or web address] Consulting Physician Internal Medicine 12/23/23 Patience Hunt MD [address] [place] [phone] [email or web address] Consulting Physician Endocrinology 12/31/23 Marianela Hutchinson MD [address] [place] [phone] [email or web address] Consulting Physician Gastrointestinal Medical Oncology 04/13/24 Margoth Souza MD [address] [place] [phone] [email or web address] Consulting Physician Urology 04/15/24 Ceci Nicholson MD [address] [place] [phone] [email or web address] Consulting Physician Internal Medicine 04/09/24 Sigifredo Davenport MD [address] [place] [phone] [email or web address] Consulting Physician Internal Medicine 06/29/24 Abilio Ng PA-C [address] [place] [phone] Physician Supervisor Drawing Interventional Radiology 10/02/23
[2024-08-16] MEDS ORDERED: PANTOPRAZOLE 40 MG INJ ONE (04:41)
[2024-08-16] MEDS ORDERED: DIPHENHYDRAMINE 50 MG/ML VIAL ONE (04:41)
[2024-08-16] MEDS ORDERED: METOCLOPRAMIDE 10 MG/2mL INJ ONE (04:42)
[2024-08-16] MEDS ORDERED: NA CHLORIDE 0.9% 1,000 ML ONE (04:42)
[2024-08-16 05:04] LABS: Absolute Eosinophils 0.1 K/uL (0-0.5); Absolute Lymphocytes (CBC) 1.9 K/uL (0.7-4.9); Absolute Monocytes 0.4 K/uL (0.1-1.3); Basophils % 0.7 % (0-1.3); Eosinophils % 1.9 % (0-4.4); Hematocrit 34.6 % (39.6-49.0); MCHC 34.6 g/dL (32.0-36.0); Monocytes % 8.1 % (3.3-12.3); Neutrophils % 54.3 % (41.7-73.7); Nucleated Red Blood Cells % 0.1 % (0-0); Platelets 181 thou/uL (152-406); RBC Red Blood Cell Count 4.62 M/uL (4.33-5.43); Red Cell Distribution Width 15.4 % (12.1-15.2)
[2024-08-16 05:13] LABS: PT Prothrombin Time 11.7 SECONDS (10-13.0); Protime INR 1.03
[2024-08-16] MEDS ORDERED: LORazepam 2 MG/ML VIAL ONE (05:24)
[2024-08-16 05:32] LABS: ALT/SGPT 27 U/L (16-61); AST/SGOT 26 U/L (15-37); Albumin 3.1 g/dL (3.4-5.0); Albumin/Globulin Ratio 0.7 (1.1-1.8); Alkaline Phosphatase 98 U/L (45-117); Anion Gap 16.7 mEq/L (5.0-15.0); BUN Blood Urea Nitrogen 20 mg/dL (7-18); Bicarbonate 24 mEq/L (21-32); Bilirubin Total 0.4 mg/dL (0.2-1.0); Globulin 4.2 g/dL (2.3-3.5); Glomerular Filtration Rate 71 ml/min (=/>90); Glucose Level 184 mg/dL (74-106); Lipase 277 U/L (13-75); Magnesium 1.6 mg/dL (1.6-2.4); NT PRO-BNP 345 pg/mL (<125); Potassium 3.7 mEq/L (3.5-5.1); Protein, Total 7.3 g/dL (6.4-8.2); Sodium Level 136 mEq/L (136-145); Troponin High Sensitivity 20.6 pg/mL (<58.9)
[2024-08-16 05:34] LABS: Bilirubin Direct < 0.2 mg/dL (0-0.2); Bilirubin Indirect, Calculated 0.2 mg/dL (0.2-0.8)
--- NOTE | 2024-08-16 06:26 | EDPHYS ---
Physician Documentation [facility] Name: Zeke Mackay Sr Age: 59 yrs Sex: Male : 1965 Arrival Date: 08/16/2024 Time: 04:18 Bed 6 Private MD: ED Physician Emanuel England HPI: 08/16 04:40 This 59 yrs old Male presents to ER via Wheelchair with complaints of Nausea/Vomiting. cp 04:40 The patient presents to the emergency department with nausea, with "dry heaves", cp vomiting, that is continuous, described as bilious, abdominal pain. Onset: The symptoms/episode began/occurred yesterday. 04:40 Possible causes: flare up of bowel problem, stomach cancer. Associated signs and cp symptoms: Pertinent positives: abdominal pain, anorexia, Pertinent negatives: constipation, diarrhea, fever, GI bleeding. Severity of symptoms: in the emergency department the symptoms are unchanged despite home interventions, took prescribed Promethazine and Ondansetron this morning. 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 - Infectious Disease History:: Denies. - Social history:: Smoking status: Patient denies any tobacco usage or history of. Patient/guardian denies using alcohol, street drugs. ROS: 04:45 Constitutional: Positive for poor PO intake, Negative for fever, cp 04:45 Eyes: Negative for injury, pain, redness, and discharge, cp 04:45 Cardiovascular: Negative for chest pain, 04:45 Abdomen/GI: Positive for abdominal pain, nausea and vomiting, Negative for diarrhea, constipation, hematemesis, black/tarry stool, rectal bleeding, 04:45 Neuro: Negative for altered mental status, 04:45 All other systems are negative, Exam: 04:45 Head/Face: Normocephalic, atraumatic. cp 04:45 Constitutional: The patient appears in no acute distress, alert, awake, non-diaphoretic, non-toxic, well developed, well nourished, uncomfortable, 04:45 Chest/axilla: Inspection: normal, 04:45 Cardiovascular: Rate: normal, 04:45 Respiratory: the patient does not display signs of respiratory distress, Respirations: normal, no use of accessory muscles, no retractions, labored breathing, is not present, Breath sounds: are clear throughout, no decreased breath sounds, no stridor, no wheezing, 04:45 Abdomen/GI: Inspection: abdomen appears normal, 04:45 Neuro: Orientation: to person, place \\T\\ time. Mentation: is normal, 04:45 Back: CVA tenderness, is absent, Vital Signs: 04:50 BP 168 / 95; Pulse 86; Resp 20; Temp 98.3; Pulse Ox 97% ; Weight 95.25 kg; Height 6 ft. bm8 0 in. ; Pain 8/10; 07:10 BP 190 / 92; Pulse 86; Resp 18 S; Pulse Ox 98% on R/A; aa5 09:00 BP 187 / 97; Pulse 86; Resp 15 S; Temp 97.6(TE); Pulse Ox 95% on R/A; aa5 04:50 Body Mass Index 28.48 (95.25 kg, 182.88 cm) bm8 04:50 Pain Scale: Adult bm8 09:00 Pt reports he needs to take antihypertensive medication this morning. aa5 MDM: 04:35 Medical Screening Exam initiated cp 06:00 I considered the following discharge prescriptions or medication management in the emergency department Medications were administered in the Emergency Department. See JUL. 06:00 Management of patient was discussed with the following: Hospitalist: You Carson NP request for admission pending results of CT abdomen/pelvis. Independent interpretation of the following test(s) in the Emergency Department EKG: See my EKG interpretation above. Care significantly affected by the following chronic conditions: Diabetes, Hypertension, Cancer. Counseling: I had a detailed discussion with the patient and/or guardian regarding the historical points, exam findings, and any diagnostic results supporting the discharge/admit diagnosis, lab results. 09:27 Differential diagnosis: Nonspecific abd pain, gastritis, pancreatitis, diverticulitis, rn viral gastroenteritis, gastroenteritis. Data reviewed: vital signs, nurses notes, lab test result(s), radiologic studies. Response to treatment: the patient's symptoms have markedly improved after treatment. Refusal of service: The patient/guardian displays adequate decision making capability and despite a detailed discussion of alternatives, benefits, risks, and consequences refuses: Admission to the hospital for further work-up and treatment. ED course: Patient initially was going to be admitted by Dr. Gimenez, I was called to the room by patient stating that he did not want to be admitted to the hospital. Patient feels much better. Went over results with patient including CT abdomen pelvis showing possible enteritis and esophagitis. Patient states feels better and would like to go home. Already on Protonix. Patient reports this feels identical to previous abdominal issues related to his cancer. Patient understands risks of going home at this time. Hospitalist team had not yet evaluated patient for admission, will cancel admission per patient's request and discharge home.. 08/16 04:36 Order name: Basic Metabolic Panel; Complete Time: 05:41 cp 08/16 05:41 Interpretation: Normal except: ANION GAP 16.7; GLUC 184; BUN 20; GFR 71. cp 08/16 04:37 Order name: CBC with Diff; Complete Time: 05:41 cp 08/16 05:41 Interpretation: Normal except: HGB 12.0; HCT 34.6; MCV 75.0; MCH 26.0; RDW 15.4. cp 08/16 04:37 Order name: LFT's; Complete Time: 05:41 cp 08/16 05:42 Interpretation: Normal except: ALB 3.1; GLOB 4.2; A/G 0.7. cp 08/16 04:37 Order name: Magnesium; Complete Time: 05:41 cp 08/16 05:59 Interpretation: Reviewed. cp 08/16 04:37 Order name: NT PRO-BNP; Complete Time: 05:41 cp 08/16 04:37 Order name: PT-INR; Complete Time: 05:41 cp 08/16 04:37 Order name: Troponin HS; Complete Time: 05:41 cp 08/16 06:00 Interpretation: Reviewed. cp 08/16 04:37 Order name: Lipase; Complete Time: 05:41 cp 08/16 05:42 Interpretation: Abnormal: LIP 277. cp 08/16 04:37 Order name: XRAY Chest (1 view); Complete Time: 07:38 cp 08/16 06:21 Order name: CT Abd/Pelvis - PO and IV Contrast: give oral contrast and then scan after cp 10 minutes; Complete Time: 09:22 08/16 04:37 Order name: EKG - Nurse/Tech; Complete Time: 08:28 cp 08/16 04:37 Order name: IV Saline Lock; Complete Time: 04:49 cp 08/16 04:37 Order name: Labs collected and sent; Complete Time: 04:49 cp 08/16 04:37 Order name: O2 Per Protocol; Complete Time: 04:49 cp 08/16 04:37 Order name: O2 Sat Monitoring; Complete Time: 04:49 cp Administered Medications: 04:48 Drug: Pantoprazole IVP 40 mg IVP once Route: IVP; Site: right forearm; bm8 04:49 Drug: NS 0.9% IV 1000 ml IV at 1000 ml once; to be given as a bolus over 60 minutes bm8 Route: IV; Rate: 1000 ml; Site: right forearm; 04:49 Drug: metoCLOPramide IVP 10 mg IVP once; over 1 to 2 minutes Route: IVP; Site: right bm8 forearm; 04:49 Drug: diphenhydrAMINE IVP 25 mg IVP once Route: IVP; Site: right forearm; bm8 05:27 Drug: Ativan IVP 2 mg IVP once Route: IVP; Site: right forearm; bm8 07:21 Drug: Promethazine IM 25 mg IM once Route: IM; Site: right gluteus; aa5 08:00 Follow up: Response: No adverse reaction aa5 07:21 Drug: Ondansetron IVP 8 mg IVP once; over 2 minutes Route: IVP; Site: right forearm; aa5 08:00 Follow up: Response: No adverse reaction; Nausea is decreased aa5 Disposition: 11:39 Co-signature as Attending Physician, Emanuel England MD I reviewed the patient's care rn provided by the Advanced Practice Provider and agree with the diagnosis and treatment plan. Disposition Summary: 08/16/24 09:29 Discharge Ordered Notes: Location: Home(08/16/24 09:29) rn Problem: an ongoing problem(08/16/24 09:29) rn Symptoms: have improved(08/16/24 09:29) rn Condition: Stable(08/16/24 09:29) rn Diagnosis - Nausea with vomiting, unspecified(08/16/24 09:29) rn - Other specified noninfective gastroenteritis and colitis rn Followup: rn - With: Private Physician - When: 1 - 2 days - Reason: Recheck today's complaints, Re-evaluation by your physician Discharge Instructions: - Discharge Summary Sheet rn - Nausea and Vomiting, Adult rn Forms: - Medication Reconciliation Form rn - Antibiotic privacy attorney - Prescription Opioid Use rn - Patient Portal Instructions rn - Leadership Thank You Letter rn Signatures: Dispatcher [employer] EDMS Rashi Gimenez MD MD cha Nieto, Roman, MD MD rn Calderon, Audri, RN RN aa5 Rashi Miranda PA PA Diana Hebert, RN RN lg3 Jermaine Jacques, RN RN bm8 Corrections: (The following items were deleted from the chart) 04:37 04:37 BASIC METABOLIC PANEL+C.LAB.BRZ ordered. EDMS EDMS 04:37 04:37 CBC+H.LAB.BRZ ordered. EDMS EDMS 04:37 04:37 HEPATIC FUNCTION+C.LAB.BRZ ordered. EDMS EDMS 04:37 04:37 MAGNESIUM+C.LAB.BRZ ordered. EDMS EDMS 04:37 04:37 PROBNP+C.LAB.BRZ ordered. EDMS EDMS 04:37 04:37 PROTIME (+INR)+COAG.LAB.BRZ ordered. EDMS EDMS 04:37 04:37 Troponin High Sensitivity+C.LAB.BRZ ordered. EDMS EDMS 04:37 04:37 LIPASE+C.LAB.BRZ ordered. EDMS EDMS 04:37 04:37 Chest Single View+RAD.RAD.BRZ ordered. EDMS EDMS 06:53 06:02 Abdomen Pelvis W Con+CT.RAD.BRZ ordered. EDMS EDMS 09:28 06:26 Observation cp rn 09:28 06:26 Eliceo England cp rn 09:28 06:26 Telemetry/MedSurg (observation) cp rn 09:28 06:26 Stable cp rn 09:28 06:26 an acute exacerbation cp rn 09:28 06:26 have improved cp rn 09:28 06:26 Standard cp rn 09:28 06:26 cp rn 09:28 06:26 Nausea with vomiting, unspecified - intractable cp rn 09:30 04:37 Cardiac monitoring ordered. cp aa5 10:09 04:37 Accucheck Blood Glucose ordered. cp aa5
--- NOTE | 2024-08-16 06:26 | ER ---
Nurse's Notes [facility] Name: Zeke Mackay Sr Age: 59 yrs Sex: Male : 1965 Arrival Date: 08/16/2024 Time: 04:18 Bed 6 Private MD: Diagnosis: Nausea with vomiting, unspecified;Other specified noninfective gastroenteritis and colitis Presentation: 08/16 04:34 Chief complaint: Patient states: nausea beginning now. reports chronic vomiting due to lg3 having stomach cancer. took "vomit" medication 2hrs [employer] but unaware of what it was. Coronavirus screen: Client denies travel out of the [place] in the last 14 days. At this time, the client does not indicate any symptoms associated with coronavirus-19. Ebola Screen: No symptoms or risks identified at this time. Risk Assessment: Do you want to hurt yourself or someone else? Patient reports no desire to harm self or others. Onset of symptoms was August 16, 2024. 04:34 Method Of Arrival: Wheelchair lg3 04:34 Acuity: RICKEY 3 lg3 Triage Assessment: 04:35 General: Appears in no apparent distress. uncomfortable, Behavior is calm, cooperative. lg3 Pain: Denies pain. EENT: No deficits noted. No signs and/or symptoms were reported regarding the EENT system. Neuro: No deficits noted. Longo Agitation-Sedation Scale (RASS): 0 - Alert and Calm Level of Consciousness is awake, alert, obeys commands, Oriented to person, place, time, situation. Cardiovascular: No deficits noted. Denies chest pain, shortness of breath, Capillary refill < 3 seconds Clubbing of nail beds is absent JVD is absent Patient's skin is warm and dry. Respiratory: No deficits noted. Airway is patent Respiratory effort is even, unlabored, Respiratory pattern is regular, symmetrical. GI: Reports nausea, vomiting. : No signs and/or symptoms were reported regarding the genitourinary system. Derm: No deficits noted. No signs and/or symptoms reported regarding the dermatologic system. Skin is intact, is healthy with good turgor, Skin is dry, Skin is normal, Skin temperature is warm. Musculoskeletal: No deficits noted. No signs and/or symptoms reported regarding the musculoskeletal system. Circulation, motion, and sensation intact. Range of motion: intact in all extremities. 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 - Infectious Disease History:: Denies. - Social history:: Smoking status: Patient denies any tobacco usage or history of. Patient/guardian denies using alcohol, street drugs. Assessment: 08:00 Reassessment: Patient is alert, oriented x 3, equal unlabored respirations, skin aa5 warm/dry/pink. Patient states feeling better. Patient states symptoms have improved. 08:00 Reassessment: Patient is alert, oriented x 3, equal unlabored respirations, skin aa5 warm/dry/pink. Pt reports he wants to go home, Dr. England was notified. . 08:45 Reassessment: Awaiting to be notified of CT scan results, pt aware. . aa5 09:20 Reassessment: Reassessment: Dr. England at bedside. . aa5 Vital Signs: 04:50 BP 168 / 95; Pulse 86; Resp 20; Temp 98.3; Pulse Ox 97% ; Weight 95.25 kg; Height 6 ft. bm8 0 in. ; Pain 8/10; 07:10 BP 190 / 92; Pulse 86; Resp 18 S; Pulse Ox 98% on R/A; aa5 09:00 BP 187 / 97; Pulse 86; Resp 15 S; Temp 97.6(TE); Pulse Ox 95% on R/A; aa5 04:50 Body Mass Index 28.48 (95.25 kg, 182.88 cm) bm8 04:50 Pain Scale: Adult bm8 09:00 Pt reports he needs to take antihypertensive medication this morning. aa5 ED Course: 04:22 Patient arrived in ED. gm2 04:23 Rashi Miranda PA is PHCP. cp 04:23 Rashi Gimenez MD is Attending Physician. cp 04:30 unable to do ekg due to patient vomiting advise to physician stated to wait till vk vomiting ceased. 04:35 Triage completed. lg3 04:35 Arm band placed on right wrist. lg3 04:48 Jermaine Jacques, RN is Primary Nurse. bm8 04:51 No provider procedures requiring assistance completed. Initial lab(s) drawn, by mejames sent to lab. Inserted saline lock: 20 gauge in right forearm, using aseptic technique. Blood collected. Flushed with 10 mL NS. Patient maintains SpO2 saturation greater than 95% on room air. 05:12 XRAY Chest (1 view) In Process Unspecified. EDMS 06:25 Eliceo England MD is Hospitalizing Provider. cp 06:45 patient vomited on self refused to be changed into gown stated he just needed a towel vk to wipe off and he would be ok. 07:57 CT Abd/Pelvis - PO and IV Contrast: give oral contrast and then scan after 10 minutes EDMS In Process Unspecified. 08:28 EKG done, by ED staff. em1 09:27 Attending Physician role handed off by Rashi Gimenez MD rn 09:27 Emanuel England MD is Attending Physician. rn 10:00 Pt dc'd IV, catheter noted to be intact, bleeding controlled, pt refused pressure aa5 dressing. Administered Medications: 04:48 Drug: Pantoprazole IVP 40 mg IVP once Route: IVP; Site: right forearm; bm8 04:49 Drug: NS 0.9% IV 1000 ml IV at 1000 ml once; to be given as a bolus over 60 minutes bm8 Route: IV; Rate: 1000 ml; Site: right forearm; 04:49 Drug: metoCLOPramide IVP 10 mg IVP once; over 1 to 2 minutes Route: IVP; Site: right bm8 forearm; 04:49 Drug: diphenhydrAMINE IVP 25 mg IVP once Route: IVP; Site: right forearm; bm8 05:27 Drug: Ativan IVP 2 mg IVP once Route: IVP; Site: right forearm; bm8 07:21 Drug: Promethazine IM 25 mg IM once Route: IM; Site: right gluteus; aa5 08:00 Follow up: Response: No adverse reaction aa5 07:21 Drug: Ondansetron IVP 8 mg IVP once; over 2 minutes Route: IVP; Site: right forearm; aa5 08:00 Follow up: Response: No adverse reaction; Nausea is decreased aa5 Outcome: 06:26 Decision to Hospitalize by Provider. cp 09:29 Discharge ordered by . rn 10:00 Discharged to home via wheelchair, aa5 10:00 Condition: improved 10:00 Discharge instructions given to patient, Instructed on discharge instructions, follow up and referral plans. Demonstrated understanding of instructions, follow-up care, 10:00 Patient left the ED. aa5 Signatures: Dispatcher [employer] EDMS Emanuel England MD MD rn Martinez, Eric em1 Allison Almanzar RN RN aa5 Rashi Miranda PA PA cp Able, Lacie, RN RN lg3 Trina Reynoso 2 Nelli Black Brad RN RN bm8 Corrections: (The following items were deleted from the chart) 04:49 04:48 Pantoprazole IVP 40 mg IVP in left antecubital bm8 bm8 09:32 09:00 BP 187 / 97; Pulse 86bpm; Resp 15bpm; Spontaneous; Pulse Ox 95% RA; Temp 97.6F aa5 Temporal; aa5 10:51 10:09 Patient left the ED. aa5 aa5
--- NOTE | 2024-08-16 07:08 | RAD REPORT ---
CLINICAL HISTORY: Vomiting. COMPARISON: XR Chest 02/09/2023. TECHNIQUE: XR CHEST 1 VIEW 08/16/2024 4:37 AM CDT FINDINGS: The heart is borderline in size following sternotomy. Lungs are clear without consolidation, atelecta sis, mass or edema. There is no pleural effusion. There is no pneumothorax. There are no acute osseous findings. Right chest port catheter tip is in the lower SVC. IMPRESSION: Clear lungs. Electronically signed by: Miguel Angel Pinto MD 08/16/2024 06:28 AM CDT RP Due to temporary technical issues with the PACS/Medipacs reporting system, reports are being brandon d by the in-house radiologist without review as a courtesy to ensure prompt reporting the interpreting radiologist is fully responsible for the content of the report. Transcribed Date/Time: 08/16/2024 7:08 AM
[2024-08-16] MEDS ORDERED: PROMETHAZINE INJ 25 MG/ML AMP ONE (07:09)
[2024-08-16] MEDS ORDERED: ONDANSETRON 4 MG/2 ML VIAL ONE (07:10)
--- NOTE | 2024-08-16 08:10 | RAD REPORT ---
EXAMINATION: Abdomen Pelvis W Contrast CLINICAL INDICATION: Male, 59 years old.Abd pain;Nausea / vomiting TECHNIQUE: CT abdomen and pelvis was performed, after the administration of IV contrast, as per [facility] protocol. Axial, sagittal and coronal reconstructions were obtained. One or more of the following dose reduction techniques were used: Automated exposure control, adjustment of the mA and/o r kV according to patient size, and/or iterative reconstruction. Unless otherwise specified, incidental findings do not require dedicated imaging follow-up. [id number]. COMPARISON: 07/31/2024 FINDINGS: LOWER CHEST: No acute process identified.No significant pericardial effusion. Moderate coronary arter y calcifications.Fluid present within the esophagus which is thickened. UPPER GI: Thickening at the gastroesophageal junction is again noted. Mild enhancement of the gastric wall. LIVER: Hepatic steatosis, but otherwise unremarkable. GALLBLADDER/BILE DUCTS: Cholelithiasis without CT evidence of acute cholecystitis.? PANCREAS: No mass, ductal dilation, or derrick-pancreatic fluid. SPLEEN: Mild splenomegaly. ADRENALS: Adrenal thickening without discrete mass. KIDNEYS AND URETERS: Mild right-sided hydronephrosis, slightly improved from prior.Partial left upper pole nephrectomy.Nonobstructing renal calculi.No ureteral calculi. Nonspecific perinephric stranding ABDOMINAL AORTA AND OTHER VESSELS: Moderate atherosclerotic changes without aortic aneurysm. PERITONEUM: No abnormal free fluid. No free air. LYMPH NODES: No pathologic lymphadenopathy. ABDOMINAL WALL: Unremarkable SMALL BOWEL/COLON: Small bowel has normal course and caliber. No colonic wall thickening or pericolon ic inflammatory changes.Fluid present within the ascending colon and distal small bowel. Mild formed stool burden. URINARY BLADDER: Distended but otherwise unremarkable. REPRODUCTIVE ORGANS: Mild prostatomegaly. MUSCULOSKELETAL: Remote lower thoracic and lumbar compression fractures. ADDITIONAL FINDINGS: None. IMPRESSION: Fluid present within the ascending colon and distal small bowel could reflect a mild enteritis. Moderately thickened distal esophagus which could reflect esophagitis. There is some fluid in the dis garo esophagus that may be from reflux or stasis if stricture present. Other findings as noted above.
[2024-08-16 10:29] VITALS: BP 187/97; TEMP 97.6; O2SAT 95
--- NOTE | 2024-08-17 11:19 | EKG ---
Test Date: 2024-08-16 Test Time: 08:07:01 Maternal Fetal Physician: R MEASUREMENT RESULTS: Intervals: Rate: 91 CA: 150 QRSD: 76 QT: 416 QTc: 511 [place]: P: CA: 150 QRS: 97 T: 132 INTERPRETIVE STATEMENTS: Sinus rhythm with marked sinus arrhythmia Rightward axis Nonspecific ST abnormality Prolonged QT Abnormal ECG Compared to ECG 08/08/2024 19:05:52 Right-axis deviation now present ST (T wave) deviation now present Prolonged QT interval now present T-wave abnormality no longer present Electronically Signed On 08-17-24 11:17:43 CDT by Lucas Huang
== END 2024-08-16 10:09 | disposition home or self-care (01) ==
LOC: ER 04:18
DX: K52.89 Other specified noninfective gastroenteritis and colitis (principal); Z85.028 Personal history of other malignant neoplasm of stomach; Z85.528 Personal history of other malignant neoplasm of kidney; Z85.01 Personal history of malignant neoplasm of esophagus; Z95.1 Presence of aortocoronary bypass graft
CPT/HCPCS: 93005; 85025; 80048; 36415; 83735; 85610; 80076; 84484; 83690; 83880; 74177; 71045; Q9967; J2550; J2765; J1200; J2470; J2405; J7030

== ENCOUNTER 2024-08-22 10:39 | Emergency (ER) | payer OTHER, BC ==
--- OUTSIDE RECORDS SUMMARY | 2024-08-22 10:54 | XMS REPORT | Clinical Summary ---
Author Name Unknown Organization [facility] [place] Address [address] [place] [address] Care Team Providers Care Pole Climber Name Role Phone Margoth Souza MD Primary Care Provider [phone] Mary Jane Cassidy MD Unavailable [phone] Barry He MD Unavailable Patience Hunt MD Unavailable Eagle Zhu DO Unavailable [phone] Marianela Hutchinson MD Unavailable [phone] Margoth Souza MD Unavailable Ceci Nicholson MD Unavailable [phone] Marianela Hutchinson MD Primary Care Provider [phone] Sigifredo Davenport MD Unavailable Abilio Ng-C Unavailable [phone] Allergies No known active allergies Medications insulin [...] by Tylenol). 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 Main [facility], 7th [place] [address] Milagros Rogers RN 08/17/2024 Orders Only Gastrointestinal Center [facility] [facility] Main dg, 7th [place] [address] Gillian Gomez PA-C Adenocarcinoma of stomach (Primary Dx) 08/06/2024 Orders Only Gastrointestinal Center [address] [place] [address] Main [facility], 7th [place] [address] Radha Castellon Werner 07/22/2024 Orders Only [facility] [place] [facility] [place] [address] [facility], 8th [place] [address] Marianela Hutchinson MD Adenocarcinoma of stomach (Primary Dx) 07/21/2024 Telephone Ambulatory Treatment [place] [facility] [address] [facility], 8th [place] [address] Rosanna Álvarez, RN Chemotherapy Teaching 07/16/2024 2:40 PM CHIEF CONTROLLER STATION Follow-Up [facility]astrointestinal [facility] [address] [place] [address] Main [facility], 7th [place] [address] Marianela Hutchinson MD Adenocarcinoma of stomach (Primary Dx) 07/16/2024 Orders Only Gastrointestinal Center [facility] [facility] Main dg, 7th [place] [address] Marianela Hutchinson MD Adenocarcinoma of stomach (Primary Dx) 07/16/2024 Orders Only Gastrointestinal Center [facility] [facility] Main dg, [facility] [place] [address] Radha Castellon [facility] Adenocarcinoma of stomach (Primary Dx) 07/16/2024 Travel 07/15/2024 10:08 AM CHIEF CONTROLLER STATION - 07/15/2024 11:59 PM [employer]IEF CONTRO[employer]ER STATION Hospital Encounter [facility] [address]g, 3rd [place] [address] Mary Kay Santamaria APRN Adenocarcinoma of stomach Discharge Disposition: Home 07/15/2024 9:49 AM [employer]IEF [employer]ER [employer]ATION - 07/15/2024 10:07 AM [employer]IEF CONTRO[employer]ER [employer]ATION Hospital Encounter Diagnostic Laboratory Center [address] [place] [address] Mary Kay Santamaria APRN Adenocarcinoma of stomach Discharge Disposition: Home 07/07/2024 Orders Only Gastrointestinal Center [facility] [facility] Main Bldg, 7th [place] [address] Gillian Gomez PA-C Adenocarcinoma of stomach (Primary Dx) 07/06/2024 Telephone [facility] - Surgical Oncology [facility] [facility] Main Bldg, 7th [place] [address] Mary Kay Santamaria, FRANK 07/06/2024 Orders Only [facility] - Surgical Oncology [address] Bldg, 7th [place] [address] Mary Kay Santamaria APRN 07/06/2024 Orders Only Gastrointestinal Center [address] [place], [place] [address]vd Main Bldg, 7th [place] [address] Gillian Gomez PA-C Adenocarcinoma of stomach (Primary Dx) 07/06/2024 Multidisciplinary Visit Gastrointestinal Center [facility] Main Bldg, 7th [place] [address] Gillian Gomez PA-C 07/06/2024 Orders Only Gastrointestinal Center [address] [place], [place] [address]vd Main Bldg, 7th [place] [address] Donnell Van Adenocarcinoma of stomach (Primary Dx) 07/02/2024 11:00 AM [facility] Nutrition Clinical Nutrition For your Nutrition appointment location directions please call: Marianela Hutchinson MD Munder, Kathryn, RD Left without seen 07/02/2024 10:30 AM CHIEF CONTROLLER STATION Follow-Up [facility] - Surgical Oncology [address] [place] [address] Main [facility], 7th [place] [address] John Fong MD Adenocarcinoma of stomach 07/02/2024 Documentation [facility] - Surgical Oncology [address] [place] [address] Main [facility], 7th [place] [address] John Fong MD 06/30/2024 3:33 PM [employer]IEF [employer]ER [employer]ATION Anesthesia Event Perioperative Evaluation and Management Center [address] [place] [address] Main [facility], 6th [place] [address] Lien Antonio RN 06/30/2024 12:25 PM [employer]IEF CONTRO[employer]ER [employer]ATION Anesthesia Event Endoscopy Center [address] [place] [address] Main [facility], 5th [place] [address] Susana Kelly MD 06/30/2024 12:00 PM [employer]IEF [employer]ER [employer]ATION - 06/30/2024 12:45 PM [employer]IEF [employer]ER STATION Surgery Endoscopy Center [address] [place] [address] Main [facility], 5th [place] [address] Brandon Alcala MD DIAGNOSTIC UPPER GASTROINTESTINAL ENDOSCOPY 06/30/2024 10:15 AM [employer]IE[employer]ER [employer]ATION - 06/30/2024 2:24 PM [employer]IE[employer]ER [employer]ATION Hospital Encounter Endoscopy Center [address] [place] [address] Main [facility], 5th Floor Elevator C [place] [phone] Brandon Alcala MD Adenocarcinoma of stomach Discharge Disposition: Home 06/30/2024 Travel 06/29/2024 9:00 AM [employer]IEF CONTROLLER STATION Consult Perioperative Evaluation and Management [address] [place] [address] Main [facility], 6th [place] [address] Mary Kay Santamaria APRN Vu, Khanh D, MD Encounter for preprocedural cardiovascular examination (Primary Dx); Coronary arteriosclerosis, not otherwise specified; Cardiomyopathy, not otherwise specified; Hypertension; 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; Type 2 diabetes mellitus with hyperglycemia; Dyslipidemia; Hyponatremia; Hyperkalemia; Adenocarcinoma of stomach; Paroxysmal atrial fibrillation; Hyperlipidemia, not otherwise specified 06/29/2024 8:00 AM CHIEF CONTROLLER STATION POEM Appointments Perioperative Evaluation [facility] Management Center [address] [place] [address], 6th Floor Elevator A [place] [phone] Marianela Hutchinson MD 06/29/2024 7:30 AM [employer]IEF CONTRO[employer]ER STATION - 06/29/2024 11:59 PM [employer]IEF CONTRO[employer]ER [employer]ATION Hospital Encounter [facility] [address] [place] [address], 2nd Floor Elevator A [place] [phone] Mary Kay Santamaria APRN Adenocarcinoma of stomach Discharge Disposition: Home 06/29/2024 Travel 06/23/2024 Documentation Gastrointestinal Center [address] [place] [address], [facility] Floor Elevator [place] [phone] Mony Saavedra RN 06/22/2024 12:20 PM CHIEF CONTROLLER STATION Follow-Up [facility] [address] [place] [address], [address] [place] [address] Elevator [place] [phone] Marianela Hutchinson MD Adenocarcinoma, NOS of stomach, NOS 06/22/2024 Orders Only Gastrointestinal Center [address] [place] [address], [address] [place] [address] Elevator [place] [phone] Radha Castellon [facility] 06/22/2024 Travel 06/20/2024 10:45 AM CHIEF CONTROLLER STATION - 06/20/2024 11:59 PM [employer]IEF CONTROLLER [employer]ATION Hospital Encounter Diagnostic Imaging Center [address] [place] [address], 3rd Floor Elevator F [place] [phone] Adenocarcinoma, NOS of stomach, NOS; Malignant neoplasm of overlapping sites of esophagus Discharge Disposition: Home 06/20/2024 10:08 AM [employer]IEF CONTROLLER STATION - 06/20/2024 10:44 AM [employer]IEF CONTROLLER [employer]ATION Hospital Encounter Diagnostic Laboratory Center [address] [place] [address] Gillian Gomez PA-C Adenocarcinoma, NOS of stomach, NOS Discharge Disposition: Home 06/16/2024 Telephone [facility] - Surgical Oncology [address] [place] [address], 7th [place] [address] Mary Kay Santamaria FRANK 06/15/2024 1:30 PM CHIEF CONTROLLER STATION Infusion [facility] [place] [address] [facility], 8th Floor Elevator T [place] [phone] [facility] Adenocarcinoma of stomach (Primary Dx); Iron deficiency anemia, not otherwise specified 06/15/2024 12:40 PM CHIEF CONTROLLER STATION Follow-Up [facility] [address] [place] [address], [address] [place], [place] [address]ator [place] [phone] Marianela Hutchinson MD Adenocarcinoma, NOS of stomach, NOS; Malignant neoplasm of overlapping sites of esophagus 06/15/2024 10:24 AM CHIEF CONTROLLER STATION - 06/15/2024 11:59 PM CHIEF CONTROLLER STATION Hospital Encounter Diagnostic Laboratory Center [address] [place] [address] Marianela Hutchinson MD Adenocarcinoma of stomach; Adenocarcinoma, NOS of stomach, NOS Discharge Disposition: Home 06/15/2024 Orders Only Gastrointestinal Center [address] [place] [address], [address] [place] [address] Radha Castellon, [facility] Adenocarcinoma of stomach (Primary Dx) 06/15/2024 Orders Only [facility] Center [address] [place] [address], [address] [place] [address] Gillian Gomez PA-C 06/15/2024 Travel 06/15/2024 Telephone [facility] Center - Gastroenterology, Hepatology & Nutrition [address] [place] [address], [address] [place] [address] Arnaldo Araujo PA-C 06/15/2024 Multidisciplinary Visit [facility] Center [address] [place] [address] Lakeshia Pablo PA 06/15/2024 Orders Only Gastrointestinal [address], [address] [place], [place] [address]ator [place] [address] Marianela Hutchinson MD Adenocarcinoma of stomach (Primary Dx) 06/12/2024 Prep for Surgery [facility] - Gastroenterology, Hepatology & Nutrition [facility], 7th [place] [address] Arnaldo Araujo PA-C Adenocarcinoma of stomach (Primary Dx) 06/12/2024 Telephone [facility] [place] - Surgical Oncology [address] [place] [address], 7th [place] [address] Mary Kay Santamaria APRN 06/12/2024 Orders Only [facility] - Surgical Oncology [address] [place] [address], 7th [place] [address] Mary Kay Santamaria APRN Adenocarcinoma of stomach (Primary Dx) 06/10/2024 Orders Only [facility]intestinal [place] - Surgical Oncology [address] [place] [address], 7th [place] [address] Mary Kay Santamaria APRN Adenocarcinoma of stomach (Primary Dx) 06/05/2024 Telephone [facility] - Gastroenterology, Hepatology & Nutrition [address] [place] [address], 7th [place] [address] Arnaldo Araujo PA-C 06/03/2024 5:30 PM CHIEF CONTROLLER STATION Infusion Ambulatory Treatment [place] [facility] [address] [facility], 8th [place] [address] Marianela Hutchinson MD Lewandowski, Teresa M, RN Adenocarcinoma of stomach (Primary Dx) 06/03/2024 Travel 06/02/2024 Telephone Gastro[facility] Center [address] [place] [address], 7th [place] [address] Mony Saavedra RN 06/01/2024 1:00 PM CHIEF CONTROLLER STATION Infusion [facility] [address] [facility], Floor 6 [place] [address] Marianela Huthcinson MD Shaik, Anna Marie B, RN Adenocarcinoma of stomach (Primary Dx); Iron deficiency anemia, not otherwise specified 06/01/2024 10:53 AM CHIEF CONTROLLER STATION - 06/01/2024 11:59 PM CHIEF CONTROLLER STATION Hospital Encounter Diagnostic Laboratory Center [address] [place] [address] Marianela Hutchinson MD Adenocarcinoma of stomach; Iron deficiency anemia, not otherwise specified Discharge Disposition: Home 06/01/2024 Orders Only [facility]astro[facility] Center [address] [place] [address], 7th [place] [address] Marianela Hutchinson MD 06/01/2024 Orders Only [facility] [address] [place] [address], 7th [place] [address] Radha Castellon, [facility] Adenocarcinoma of stomach (Primary Dx); Iron deficiency anemia, not otherwise specified 06/01/2024 Travel 06/01/2024 Orders Only [facility] - Ambulatory Treatment Center [address] [place] [address], Floor 6 [place] [address] Marianela Hutchinson MD Adenocarcinoma of stomach (Primary Dx) 05/26/2024 Telephone [facility] - Gastroenterology, Hepatology & Nutrition [address] [place] [address], 7th [place] [address] Arnaldo Araujo, PA-C 05/22/2024 Telephone [facility] - Gastroenterology, Hepatology & Nutrition [address] [place] [address], 7th [place] [address] Arnaldo Araujo PA-C 05/22/2024 Orders Only [facility] - Gastroenterology, Hepatology & Nutrition [address] [place] [address], 7th [place] [address] Arnaldo Araujo, PA-C Candidal esophagitis (Primary Dx) 05/20/2024 4:30 PM CHIEF CONTROLLER STATION - 05/20/2024 11:59 PM CHIEF CONTROLLER STATION Hospital Encounter Ambulatory Treatment Center - [address], 2nd Floor, [place] [address] Marianela Hutchinson MD Lewandowski, Teresa M, RN Adenocarcinoma of stomach Discharge Disposition: Home 05/19/2024 12:44 PM CHIEF CONTROLLER STATION Anesthesia Event Endoscopy Center [address] [place] [address], 5th [place] [address] Maurice Ferrera MD Thomas, Ashly, CRNA 05/19/2024 12:00 PM CHIEF CONTROLLER STATION - 05/19/2024 1:10 PM CHIEF CONTROLLER STATION Surgery Endoscopy Center [address] [place] [address], 5th [place] [address] Brandon Alcala MD UPPER GASTROINTESTINAL ENDOSCOPY OF ESOPHAGUS, STOMACH, OR DUODENUM ANDJ ADJACENT STRUCTURES, WITH ENDOSCOPIC ULTRASOUND EXAMINATION 05/19/2024 11:17 AM CHIEF CONTROLLER STATION - 05/19/2024 2:49 PM CHIEF CONTROLLER STATION Hospital Encounter Endoscopy Center [address] [place] [address], 5th [place] [address] Brandon Alcala MD Adenocarcinoma of stomach Discharge Disposition: Home 05/19/2024 Travel 05/18/2024 1:00 PM CHIEF CONTROLLER STATION Infusion [facility] - Ambulatory Treatment [facility] [address] [place] [address] [facility], Floor 6 [place] [phone] Marianela Hutchinson MD Rupp, Alexa B, RN Adenocarcinoma of stomach (Primary Dx) 05/18/2024 12:20 PM CHIEF CONTROLLER STATION Follow-Up [facility] Center [address] [place] [address], 7th [place] [address] Marianela Hutchinson MD Adenocarcinoma, NOS of stomach, NOS 05/18/2024 11:00 AM CHIEF CONTROLLER STATION POEM Appointments Perioperative Evaluation and Management Center [address] [place] [address], 6th Floor Elevator A [place] [phone] Marianela Hutchinson MD 05/18/2024 10:32 AM CHIEF CONTROLLER STATION - 05/18/2024 11:59 PM CHIEF CONTROLLER STATION Hospital Encounter Diagnostic Laboratory Center [address] [place] [address] Gillian Gomez PA-C Adenocarcinoma, NOS of stomach, NOS Discharge Disposition: Home 05/18/2024 Orders Only [facility] [address] [place] [address], 7th [place] [address] Marianela Hutchinson MD Adenocarcinoma of stomach (Primary Dx) 05/18/2024 Orders Only Gastrointestinal Center [address] [place] [address], 7th [place] [address] Rahda Castellon, [facility] Adenocarcinoma of stomach (Primary Dx); Iron deficiency anemia, not otherwise specified 05/18/2024 Travel 05/15/2024 11:59 PM CHIEF CONTROLLER STATION Anesthesia Event Perioperative Evaluation and Management Center [address] [place] [address], 6th [place] [address] Eri Lynne, RN 05/06/2024 5:30 PM CHIEF CONTROLLER STATION Infusion Ambulatory Treatment Center - [facility] [address] [facility], 8th [place] [address] Marianela Hutchinson MD Pagara, Leni S RN Adenocarcinoma of stomach 05/04/2024 12:36 PM CHIEF CONTROLLER STATION - 05/04/2024 11:59 PM CHIEF CONTROLLER STATION Hospital Encounter Ambulatory Treatment [place] - [address], 2nd Floor, [place] [address] Gillian Gomez PA-C Jo, Edifia Sungsoon, ARTURO Adenocarcinoma of stomach (Primary Dx) Discharge Disposition: Home 05/04/2024 12:20 PM CHIEF CONTROLLER STATION Follow-Up [facility] [address] [place] [address], 7th [place] [address] Marianela Hutchinson MD Adenocarcinoma, NOS of stomach, NOS 05/04/2024 11:10 AM CHIEF CONTROLLER STATION - 05/04/2024 12:35 PM CHIEF CONTROLLER STATION Hospital Encounter Diagnostic Laboratory Center [address] [place] [address] Gillian Gomez PA-C Adenocarcinoma, NOS of stomach, NOS; Adenocarcinoma of stomach Discharge Disposition: Home 05/04/2024 Orders Only [facility] [address] [place] [address], 7th [place] [address] Marianela Hutchinson MD Adenocarcinoma of stomach (Primary Dx) 05/04/2024 Orders Only [facility] Center [address] [place] [address], 7th [place] [address] Radha Castellon Werner Adenocarcinoma of stomach (Primary Dx) 05/04/2024 Travel 04/30/2024 Orders Only [facility] - Surgical Oncology [facility], 7th [place] [address] Mary Kay Santamaria APRN Adenocarcinoma of stomach (Primary Dx); Paroxysmal atrial fibrillation; Hyperlipidemia, not otherwise specified; Type 2 diabetes mellitus with hyperglycemia 04/27/2024 8:05 PM CHIEF CONTROLLER STATION Ancillary Procedure Image Library [address] [place] [address] Cancer 04/27/2024 8:00 PM CHIEF CONTROLLER STATION Ancillary Procedure Image Library [address] [place] [address] Cancer 04/27/2024 Orders Only Gastrointestinal Center [address] [place] [address], [facility] [place] [address] Donnell Van Adenocarcinoma of stomach (Primary Dx) 04/24/2024 Documentation [facility] Access [facility] Procedures Center [address] [facility], 8th [place] [address] Mary Kay Santamaria APRN 04/24/2024 Orders Only [facility] - Surgical Oncology [address] [place] [address], 7th [place] [address] Mary Kay Santamaria APRN Adenocarcinoma, NOS of stomach, NOS (Primary Dx) 04/24/2024 Telephone [facility] - Surgical Oncology [facility], 7th [place] [address] Mary Kay Santamaria APRN 04/22/2024 Lab Requisition [facility] Sincere Moralez MD Jain, Shilpa, MD 04/21/2024 Orders Only [facility] Center [address] [place] [address], 7th [place] [address] Gillian Gomez PA-C Adenocarcinoma, NOS of stomach, NOS (Primary Dx); Adenocarcinoma of stomach 04/16/2024 Telephone [facility] [address] [place] [address] 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, certified art therapist Call 04/15/2024 10:09 AM CHIEF CONTROLLER STATION Anesthesia Event MAIN OR [address] [place] [address] Meenakshi Crowe MD Miller, Wendy, PAXTON 04/15/2024 10:05 AM CHIEF CONTROLLER STATION - 04/15/2024 1:25 PM CHIEF CONTROLLER STATION Surgery MAIN OR [address] [place] [address] John Fong MD ROBOTIC ASSISTED SURGICAL LAPAROSCOPY 04/15/2024 7:32 AM CHIEF CONTROLLER STATION - 04/15/2024 11:50 PM CHIEF CONTROLLER STATION Hospital Encounter MAIN OR [address] [place] [address] John Fong MD Adenocarcinoma of stomach (Primary Dx) Discharge Disposition: Home 04/15/2024 Travel 04/14/2024 2:30 PM CHIEF CONTROLLER STATION Consult [facility] - Surgical Oncology [address] [place] [address] Main [facility], 7th [place] [address] Gillian Gomez PA-C Badgwell, Brian, MD Adenocarcinoma, NOS of stomach, NOS (Primary Dx); Nausea 04/14/2024 Documentation [facility] - Surgical Oncology [address] [place] [address] Main [facility], 7th [place] [address] John Fong MD 04/13/2024 3:00 PM CHIEF CONTROLLER STATION Consult [facility] [address] [place] [address] Main [facility], 7th [place] [address] Marianela Hutchinson MD Mass of stomach (Primary Dx) 04/13/2024 2:02 PM CHIEF CONTROLLER STATION Anesthesia Event Perioperative Evaluation and Management Center [address] [place] [address] Main [facility], 6th [place] [address] Curtis Moctezuma PA 04/12/2024 8:22 AM CHIEF CONTROLLER STATION - 04/12/2024 3:42 PM CHIEF CONTROLLER STATION Hospital Encounter MAIN P06B [address] [place] [address] Nghia Zhu MD Elsayem, Ahmed, MD Nausea and vomiting (Primary Dx); Gastric cancer; Pancreatitis Discharge Disposition: Left Against Medical Advice 04/12/2024 Travel 04/09/2024 8:25 PM CHIEF CONTROLLER STATION Ancillary Procedure Image Library [address] [place] [address] Margoth Souza MD Cancer 04/09/2024 8:20 PM CHIEF CONTROLLER STATION Ancillary Procedure Image Library [address] [place] [address] Margoth Souza MD Cancer 04/09/2024 8:15 PM CHIEF CONTROLLER STATION Ancillary Procedure Image Library [address] [place] [address] Margoth Souza MD Cancer 04/09/2024 8:10 PM CHIEF CONTROLLER STATION Ancillary Procedure Image Library [address] [place] [address] Margoth Souza MD Cancer 04/09/2024 8:05 PM CHIEF CONTROLLER STATION Ancillary Procedure Image Library [address] [place] [address] Margoth Souza MD Cancer 04/09/2024 8:00 PM CHIEF CONTROLLER STATION Ancillary Procedure Image Library [address] [place] [address] Margoth Souza MD Cancer 04/09/2024 10:48 AM CHIEF CONTROLLER STATION - 04/09/2024 11:59 PM CHIEF CONTROLLER STATION Hospital Encounter Diagnostic Laboratory Center [address] [place] [address] Ceci Nicholson MD Encounter for other preprocedural examination; Atherosclerosis of coronary 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, not otherwise specified; 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 Discharge Disposition: Home 04/09/2024 10:00 AM CHIEF CONTROLLER STATION POEM Appointments Perioperative Evaluation and Management Center [address] [place] [address], 6th [place] [address] Margoth Souza MD 04/09/2024 9:56 AM CHIEF CONTROLLER STATION - 04/09/2024 10:47 AM CHIEF CONTROLLER STATION Hospital Encounter [facility] - Cardiology [address] [place] [address], 2nd [place] [address] Ceci Nicholson MD Adenocarcinoma of stomach; Hyperlipidemia, not otherwise specified; Encounter for other preprocedural examination; Atherosclerosis of coronary 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, not otherwise specified Discharge Disposition: Home 04/09/2024 9:00 AM CHIEF CONTROLLER STATION Consult Perioperative Evaluation and Management [address] [place] [address], 6th [place] [address] Mary Kay Santamaria APRN Misoi, Mercy W, MD Encounter for other preprocedural examination (Primary Dx); Adenocarcinoma of stomach; Paroxysmal atrial fibrillation; Hypertension; 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; Hyperlipidemia, not otherwise specified; Current use of 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; Atherosclerosis of coronary 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, not otherwise specified 04/09/2024 Travel 04/08/2024 Prep for [facility] [address] [place] [address], [address] [place] [phone] Mary Kay Santamaria APRN Adenocarcinoma of stomach (Primary Dx); Mass of stomach 04/08/2024 Orders Only [facility] [address] [place] [address], [address] [place] [address] Mary Kay Santamaria APRN Adenocarcinoma of stomach (Primary Dx); Paroxysmal atrial fibrillation; Hypertension; 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; Hyperlipidemia, not otherwise specified; Current use of 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 04/08/2024 Orders Only [facility] [address] [place] [address], [address] [place], [place] [address] [address] Gillian Gomez PA-C Adenocarcinoma, NOS of stomach, NOS (Primary Dx) 04/06/2024 Orders Only [facility] [address] [place] [address], 7th [place] [address] Roberto Poole PA 04/06/2024 Orders Only [facility] [address] [place] [address], [facility] [place] [address] Roberto Poole PA Mass of stomach (Primary Dx) 04/06/2024 Orders Only [facility] [address] [place] [address], 7th [place] [address] Roberto Poole PA Mass of stomach (Primary Dx) 04/06/2024 Telephone [facility] [address] [place] [address], 7th [place] [address] Anais Meng RN 02/11/2024 Travel 02/10/2024 3:30 PM CDT Telemedicine [facility] [address] [place] [address], [facility] [place] [address] Margoth Souza MD Renal mass (Primary Dx) 01/02/2024 7:15 AM CDT Ancillary Procedure MAIN OR [address] [place] [phone] Margoth Souza MD 01/02/2024 7:00 AM CDT - 01/02/2024 11:40 AM CDT Surgery MAIN OR [address] [place] [phone] Margoth Souza MD ROBOTIC ASSISTED PARTIAL NEPHRECTOMY 01/02/2024 6:58 AM CDT Anesthesia Event MAIN OR [address] [place] [phone] Alonzo Liu MD Majekodumi, Jessy, PAXTON 01/02/2024 5:04 AM CDT - 01/03/2024 5:05 PM CDT Hospital Encounter MAIN P09B [address] [place] [phone] Margoth Souza MD Renal mass (Primary Dx) Discharge Disposition: Home 01/02/2024 Travel 12/31/2023 1:04 PM CDT - 12/31/2023 11:59 PM CDT Hospital Encounter CT [facility] and Diagnostic [facility] [address] [place] [address], 3rd [place] [address] Margoth Souza MD Renal mass Discharge Disposition: Home 12/31/2023 8:00 AM CDT Consult [facility] [address] [place] [address] Nakia Kirby APRN Khan, Sonya, MD Type 2 diabetes mellitus with hyperglycemia [E11.65] (Primary Dx); Pre-surgery evaluation 12/30/2023 9:30 AM CDT Office Visit [facility] [address] [place] [address], [facility] Floor [facility] [place] [address] Margoth Souza MD Renal mass 12/30/2023 Travel 12/30/2023 Telephone [facility] [address] [place] [address] Winnie Archibald, RN Appointment (Cannot get internet-phone broke) 12/30/2023 Orders [facility] [address] [place] [address], [address] [place] [phone] Roberto Poole PA Renal mass (Primary Dx) 12/29/2023 Orders Only [facility] [address] [place], [place] [id number] Veronica Del Castillo APRN 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); Endocrine/metabolic screening; Renal cell carcinoma <Left side> 12/25/2023 8:36 AM CDT Anesthesia Event [facility] [address] [place], [place] [phone] Lien Antonio, RN 12/23/2023 10:30 AM CDT Consult Perioperative Evaluation and Management [address] [place] [address] Margoth Souza MD Oh, Jeong, MD Encounter for other preprocedural examination (Primary Dx); Renal mass; Hyperlipidemia, not otherwise specified 12/23/2023 9:00 AM CDT POEM Appointments [facility] [address] [place] [address], 6th [place] [address] Margoth Souza MD Pre-surgery evaluation (Primary Dx) 12/23/2023 8:45 AM CDT - 12/23/2023 11:59 PM CDT Hospital Encounter [facility] [address] [place] [phone] Margoth Souza MD Renal mass Discharge Disposition: Home 12/23/2023 Travel 12/09/2023 9:33 AM CDT - 12/09/2023 11:59 PM CDT Hospital Encounter [facility] [address] [place] [address] Veronica Del Castillo APRN 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; Endocrine/metabolic screening Discharge Disposition: Home 12/09/2023 8:30 AM CDT Consult [facility] [address] [place] [address], 6th [place] [address] Mary Jane Cassidy MD 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); Endocrine/metabolic screening; Renal cell carcinoma <Left side> 12/09/2023 Travel 10/23/2023 Orders Only [facility] [address] [place] [address], 7th [place] [address] Roberto Poole PA Renal mass (Primary Dx); Adrenal mass 10/03/2023 9:30 AM CDT - 10/03/2023 11:59 PM CDT Hospital Encounter Interventional Radiology [address] [place] [address], 4th [place] [address] Shazia Arriaza MD McRae, Stephen, MD Renal mass Discharge Disposition: Home 10/03/2023 8:30 AM CDT - 10/03/2023 9:29 AM CDT Hospital Encounter [facility] [address] [place] [address] Margoth Souza MD Renal mass Discharge Disposition: Home 10/03/2023 Travel 10/02/2023 8:24 AM CDT - 10/02/2023 11:59 PM CDT Hospital Encounter Interventional Radiology [address] [place] [address], 4th [place] [address] Margoth Souza MD Ho, Thanh-Trang D, PA-C Encounter for other preprocedural examination (Primary Dx); Renal mass; 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 Discharge Disposition: Home 10/02/2023 Travel 09/24/2023 7:46 AM CDT - 09/24/2023 11:59 PM CDT Hospital Encounter [facility] [address] [place] [phone] Roberto Poole PA Adrenal mass Discharge Disposition: Home 09/20/2023 Orders Only [facility] [address] [place] [address], [facility] Floor [facility] [place] [address] Roberto Poole PA Adrenal mass (Primary Dx) 09/19/2023 11:45 AM CDT Ancillary Procedure [facility] Outpatient [facility] [address] [place] [address], [facility] Floor [facility] [place] [address] Shazia Arriaza MD Renal mass 09/19/2023 9:20 AM CDT - 09/19/2023 11:59 PM CDT Hospital Encounter [facility] [address] [place] [phone] Shazia Arriaza MD Adenoma, NOS of adrenal gland, NOS <Left> Discharge Disposition: Home 09/19/2023 Orders Only Interventional Radiology [address] [place] [address], 4th [place] [address] Abilio Ng PA-C Renal mass (Primary Dx) 09/19/2023 Travel 09/19/2023 Telephone MD [facility] [address] [place] [address] Barbara Rees MA 09/16/2023 4:00 PM CDT - 09/16/2023 11:59 PM CDT Hospital Encounter [facility] [address] [place] [address] Shazia Arriaza MD Renal mass; Adrenal mass Discharge Disposition: Home 09/16/2023 2:00 PM CDT Office Visit [facility] [address] [facility], 7th [place] [address] Margoth Souza MD Renal mass (Primary Dx); Adrenal mass; Adenoma, NOS of adrenal gland, NOS <Left>; 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 WV FLUORO CENTRAL VENOUS ACC ESS DEV PLACEMENT 04/15/2024 Neck/N/A Procedure: FLUORO GUIDANCE FOR CENTRAL VENOUS ACCESS DEVICE PLACEMENT, REPLACEMENT, OR REMOVAL; Surgeon: John Fong MD; Location: MAIN OR; Service: SURG ONC - GASTRIC/HIPEC Medical devices from this surgery are in the Medical Devices section. W[place] US VASC ACCESS SITS VSL P ATENCY [...] locally 12/03/2023-12/06/2023 of note, pt was on [facility] Peripheral vascular disease 2023 Left LE [...] on file Legal Sex Male 11:38 AM CHIEF CONTROLLER STATION Gender Identity Not on file Sexual Orientation Not on file Occupation Industry Job Start Date Job End Date retired from [employer] Not on file N ot on file Not on file Travel History Travel Start Travel End [place] 04/12/2024 04/12/2024 Obstetrics History Last Filed Vital Signs Vital Sign Reading Time Taken Comments Blood Pressure 147/83 07/16/2024 2:11 PM CHIEF CONTROLLER STATION Pulse 78 07/16/2024 2:11 PM CHIEF CONTROLLER STATION Temperature 36.5 °C (97.7 °F) 07/16/2024 2:11 PM CS T Respiratory Rate 18 07/16/2024 2:11 PM CHIEF CONTROLLER STATION Oxygen Saturation 98% 07/16/2024 2:11 PM CHIEF CONTROLLER STATION Inhaled Oxygen Concentration - - Weight 38.7 kg (85 lb 4.8 oz) 07/16/2024 2:11 PM CHIEF CONTROLLER STATION Height 188 cm (6' 2") 05/19/2024 11:53 AM CHIEF CONTROLLER STATION Body Mass Index 10.95 05/19/2024 11:53 AM CHIEF CONTROLLER STATION Plan of Treatment Upcoming Encounters Date Type Department Care Team (Latest Contact Info) Description 08/24/2024 Orders Only [facility] - Main Building [address] [place] [address], 2nd Floor, [place] [address] Marianela Hutchinson MD [address] [place] [phone] [email or web address] Adenocarcinoma of stomach (Primary Dx) 08/24/2024 12:15 PM CDT Appointment [facility] [address] [place] [phone] Gillian Gomez PA-C [address] [place] [phone] [email or web address] 08/24/2024 1:40 PM CDT Follow-Up [facility] [address] [place] [address], 7th [place] [address] Marianela Hutchinson MD [address] [place] [phone] [email or web address] 08/24/2024 3:00 PM CDT Hospital Encounter [facility] - Main Building [address] [place] [address], 2nd Floor, [place] [address] Gillian Gomez PA-C [address] [place] [phone] [email or web address] 02/01/2025 11:30 AM CDT Appointment [facility] [address] [place] [address] Veronica Del Castillo, HAMMERER [facility] [place] [address] [email or web address] 02/01/2025 11:[address] Imaging and Diagnostic Imaging [address] [place] [address], 3rd [place] [address] Veronica Del Castillo, HAMMERER [address] [place] [phone] [email or web address] 02/01/2025 3:00 PM CDT Follow-Up Endocrine Center [address] [place] [address], 6th [place] [address] Mary Jane Cassidy MD [address] [place] [phone] [email or web address] 02/05/2025 10:45 AM CDT Lab [facility] [address] [facility], 7th [place] [address] Margoth Souza MD [address] [place] [phone] [email or web address] 02/05/2025 11:15 AM CDT Ancillary Procedure [facility] Outpatient [facility] [address] [place] [address] Margoth Souza MD [address] [place] [phone] [email or web address] 02/05/2025 11:55 AM CDT Ancillary Procedure CT Imaging [address] [place] [address] Margoth Souza MD [address] [place] [phone] [email or web address] 02/08/2025 2:30 PM CDT Telemedicine [facility] [address] [place] [address] Margoth Souza MD [address] [place] [phone] [email or web address] Health Maintenance Due Date Last Done Comments COVID-19 Vaccine (#1) 01/09/1969 Pneumococcal Vaccine: 50+ Years (1 of 2 - PCV) 983 01/09/1975 Influenza Vaccine (#1) 2024 08/04/2018 Medical Devices Implanted Type Area Permit Coordinator Device Identifier Shelf Expiration Date Model / Serial / Lot PwSlade marks 6fr - [id number] Implanted:Qty: 1 on 04/15/2024 by John Fong MD at [facility] Implant Right: Neck [employer]ARD [employer] SYSTEM[employer] 12/17/2024 [id number] / / [id number] Procedures Procedure Name Priority Date/Time Associated Diagnosis Comments CT CHEST ABDOMEN PELVIS W CONTRAST Routine 07/15/2024 4:38 PM CHIEF CONTROLLER STATION Adenocarcinoma of stomach .CBC Routine 07/15/2024 10:01 AM CHIEF CONTROLLER STATION Adenocarcinoma of stomach CARCINOEMBRYONIC ANTIGEN Routine 025 10:01 AM CHIEF CONTROLLER STATION Adenocarcinoma of stomach LACTATE DEHYDROGENASE Routine 07/15/2024 10:01 AM CHIEF CONTROLLER STATION Adenocarcinoma of stomach PHOSPHORUS LEVEL Routine 07/15/2024 10:01 AM CHIEF CONTROLLER STATION Adenocarcinoma of stomach MAGNESIUM LEVEL Routine 07/15/2024 10:01 AM CHIEF CONTROLLER STATION Adenocarcinoma of stomach COMPREHENSIVE METABOLIC PANEL Routine 10:01 AM CHIEF CONTROLLER STATION Adenocarcinoma of stomach COMPLETE BLOOD COUNT W/ DIFFERENTIAL Routine 07/15/2024 10:01 AM CHIEF CONTROLLER STATION Adenocarcinoma of stomach RESEARCH PROTOCOL [id number] Routine 07/15 10:01 AM CHIEF CONTROLLER STATION Adenocarcinoma of stomach MDA AP IHC WORKUP Routine 07/07/2024 12:29 PM CHIEF CONTROLLER STATION Adenocarcinoma of stomach POC GLUCOSE SCREEN Routine 06/30/2024 1:23 PM CHIEF CONTROLLER STATION PATHOLOGY BIOPSY INTERPRETATION Routine 06/30/2024 12:51 PM CHIEF CONTROLLER STATION Adenocarcinoma of stomach WV ESOPHAGOGASTRODUODENOSCOP Y TRANSORAL DIAGNOSTIC 06/30/2024 12:15 PM CHIEF CONTROLLER STATION Adenocarcinoma of stomach Case Notes 06/12 per gene to schedule on 06/30, per tor to schedule 06/30 thru lunch last AM case, slot held to offer. LVM and sent mychart to schedule-DC Special Needs TELEPHONE ANSWERING SERVICE OPERATORARTURO PEREZ COMPLETE 06/18.TELEPHONE ANSWERING SERVICE OPERATORARTURO PEREZ LVM FOR DAUGHTER WITH DETAILED INSTRUCTIONS FOR PROCEDURE IN ADDITION TO HOLD ON PLAVIX FOR 5 DAYS.TELEPHONE ANSWERING SERVICE OPERATORARTURO HERNANDEZ 1ST CALL 06/16. POC CHEM 8 Routine 06/30/2024 11:10 AM CHIEF CONTROLLER STATION POC GLUCOSE SCREEN Routine 06/30/2024 10:52 AM CHIEF CONTROLLER STATION POC CHEM 8 Routine 06/29/2024 9:54 AM CHIEF CONTROLLER STATION EKG, 12-LEAD (SCHEDULED) Routine 06/29/2024 Adenocarcinoma of stomach PETCT F18 FDG (FLUORODEOXYGLUCOSE) WITH CONTRAST Routine 06/20/2024 12:42 PM CHIEF CONTROLLER STATION Adenocarcinoma, NOS of stomach, NOS Malignant neoplasm of overlapping sites of esophagus POC GLUCOSE SCREEN Routine 06/20/2024 11:06 AM CHIEF CONTROLLER STATION .CBC Routine 06/20/2024 10:35 AM CHIEF CONTROLLER STATION Adenocarcinoma, NOS of stomach, NOS CARCINOEMBRYONIC ANTIGEN Routine 025 10:35 AM CHIEF CONTROLLER STATION Adenocarcinoma, NOS of stomach, NOS LACTATE DEHYDROGENASE Routine 06/20/2024 10:35 AM CHIEF CONTROLLER STATION Adenocarcinoma, NOS of stomach, NOS PHOSPHORUS LEVEL Routine 06/20/2024 10:35 AM CHIEF CONTROLLER STATION Adenocarcinoma, NOS of stomach, NOS MAGNESIUM LEVEL Routine 06/20/2024 10:35 AM CHIEF CONTROLLER STATION Adenocarcinoma, NOS of stomach, NOS COMPREHENSIVE METABOLIC PANEL Routine 10:35 AM CHIEF CONTROLLER STATION Adenocarcinoma, NOS of stomach, NOS COMPLETE BLOOD COUNT W/ DIFFERENTIAL Routine 06/20/2024 10:35 AM CHIEF CONTROLLER STATION Adenocarcinoma, NOS of stomach, NOS .CBC Routine 06/15/2024 10:39 AM CHIEF CONTROLLER STATION Adenocarcinoma of stomach CARCINOEMBRYONIC ANTIGEN Routine 025 10:39 AM CHIEF CONTROLLER STATION Adenocarcinoma, NOS of stomach, NOS LACTATE DEHYDROGENASE Routine 06/15/2024 10:39 AM CHIEF CONTROLLER STATION Adenocarcinoma, NOS of stomach, NOS PHOSPHORUS LEVEL Routine 06/15/2024 10:39 AM CHIEF CONTROLLER STATION Adenocarcinoma, NOS of stomach, NOS MAGNESIUM LEVEL Routine 06/15/2024 10:39 AM CHIEF CONTROLLER STATION Adenocarcinoma, NOS of stomach, NOS COMPREHENSIVE METABOLIC PANEL Routine 10:39 AM CHIEF CONTROLLER STATION Adenocarcinoma of stomach COMPLETE BLOOD COUNT W/ DIFFERENTIAL Routine 06/15/2024 10:39 AM CHIEF CONTROLLER STATION Adenocarcinoma of stomach .CBC Routine 06/01/2024 11:10 AM CHIEF CONTROLLER STATION Adenocarcinoma of stomach TRANSFERRIN Routine 06/01/2024 11:10 AM CHIEF CONTROLLER STATION Iron deficiency anemia, not otherwise specified Adenocarcinoma of stomach FERRITIN Routine 06/01/2024 11:10 AM CHIEF CONTROLLER STATION Iron deficiency anemia, not otherwise specified Adenocarcinoma of stomach IRON LEVEL Routine 06/01/2024 11:10 AM CHIEF CONTROLLER STATION Iron deficiency anemia, not otherwise specified Adenocarcinoma of stomach COMPREHENSIVE METABOLIC PANEL Routine 11:10 AM CHIEF CONTROLLER STATION Adenocarcinoma of stomach COMPLETE BLOOD COUNT W/ DIFFERENTIAL Routine 06/01/2024 11:10 AM CHIEF CONTROLLER STATION Adenocarcinoma of stomach POC GLUCOSE SCREEN Routine 05/19/2024 1:52 PM CHIEF CONTROLLER STATION PATHOLOGY BIOPSY INTERPRETATION Routine 05/19/2024 1:10 PM CHIEF CONTROLLER STATION Adenocarcinoma of stomach WV ESOPHAGOGASTRODUODENOSCOP Y US SCOPE W/ADJ STRXRS 05/19/2024 12:34 PM CHIEF CONTROLLER STATION Adenocarcinoma of stomach Case Notes 04/24- WAITING FOR TRIAGE TO DC FOR 05/01-BJ Special Needs TELEPHONE ANSWERING SERVICE OPERATOR [place] Call Completed 04/30/24ad laproscopy on 04/15/24 POC GLUCOSE SCREEN Routine 05/19/2024 12:21 PM CHIEF CONTROLLER STATION .CBC Routine 05/18/2024 10:55 AM CHIEF CONTROLLER STATION Adenocarcinoma, NOS of stomach, NOS CARCINOEMBRYONIC ANTIGEN Routine 024 10:55 AM CHIEF CONTROLLER STATION Adenocarcinoma, NOS of stomach, NOS LACTATE DEHYDROGENASE Routine 05/18/2024 10:55 AM CHIEF CONTROLLER STATION Adenocarcinoma, NOS of stomach, NOS PHOSPHORUS LEVEL Routine 05/18/2024 10:55 AM CHIEF CONTROLLER STATION Adenocarcinoma, NOS of stomach, NOS MAGNESIUM LEVEL Routine 05/18/2024 10:55 AM CHIEF CONTROLLER STATION Adenocarcinoma, NOS of stomach, NOS COMPREHENSIVE METABOLIC PANEL Routine 10:55 AM CHIEF CONTROLLER STATION Adenocarcinoma, NOS of stomach, NOS COMPLETE BLOOD COUNT W/ DIFFERENTIAL Routine 05/18/2024 10:55 AM CHIEF CONTROLLER STATION Adenocarcinoma, NOS of stomach, NOS .CBC Routine 05/04/2024 11:34 AM CHIEF CONTROLLER STATION Adenocarcinoma, NOS of stomach, NOS RESEARCH PROTOCOL [id number] Routine 05/04 11:34 AM CHIEF CONTROLLER STATION Adenocarcinoma of stomach CARCINOEMBRYONIC ANTIGEN Routine 024 11:34 AM CHIEF CONTROLLER STATION Adenocarcinoma, NOS of stomach, NOS LACTATE DEHYDROGENASE Routine 05/04/2024 11:34 AM CHIEF CONTROLLER STATION Adenocarcinoma, NOS of stomach, NOS PHOSPHORUS LEVEL Routine 05/04/2024 11:34 AM CHIEF CONTROLLER STATION Adenocarcinoma, NOS of stomach, NOS MAGNESIUM LEVEL Routine 05/04/2024 11:34 AM CHIEF CONTROLLER STATION Adenocarcinoma, NOS of stomach, NOS COMPREHENSIVE METABOLIC PANEL Routine 11:34 AM CHIEF CONTROLLER STATION Adenocarcinoma, NOS of stomach, NOS COMPLETE BLOOD COUNT W/ DIFFERENTIAL Routine 05/04/2024 11:34 AM CHIEF CONTROLLER STATION Adenocarcinoma, NOS of stomach, NOS VERIFY CATHETER TIP PLACEMENT Routine 3:50 PM CHIEF CONTROLLER STATION Adenocarcinoma of stomach POC GLUCOSE SCREEN Routine 04/15/2024 3:21 PM CHIEF CONTROLLER STATION XR CHEST 1 VW PORTABLE Routine 2:45 PM CHIEF CONTROLLER STATION POC GLUCOSE SCREEN Routine 04/15/2024 1:05 PM CHIEF CONTROLLER STATION POC GLUCOSE SCREEN Routine 04/15/2024 12:52 PM CHIEF CONTROLLER STATION CYTOLOGY NON-CLINICAL RN INTERPRETATION Routine 04/15/2024 12:33 PM CHIEF CONTROLLER STATION Adenocarcinoma of stomach PATHOLOGY SURGICAL INTERPRETATION Routine 04/15/2024 12:13 PM CHIEF CONTROLLER STATION Adenocarcinoma of stomach FL CENTRAL VENOUS PLACE EXCHANGE Routine 04/15/2024 11:40 AM CHIEF CONTROLLER STATION Adenocarcinoma of stomach POC GLUCOSE SCREEN Routine 04/15/2024 9:22 AM CHIEF CONTROLLER STATION WV INSJ TUNNELED CTR VAD W/SUBQ PORT AGE 5 YR/> 04/15/2024 9:16 AM CHIEF CONTROLLER STATION Adenocarcinoma of stomach Special Needs MTL@0800 WV US VASC ACCESS SITS VSL PATENCY NDL ENTRY 04/15/2024 9:16 AM CHIEF CONTROLLER STATION Adenocarcinoma of stomach Special Needs MTL@0800 WV FLUORO CENTRAL VENOUS ACCESS DEV PLACEMENT 04/15/2024 9:16 AM CHIEF CONTROLLER STATION Adenocarcinoma of stomach Special Needs MTL@0800 WV LAPS ABD PRTM&OMENTUM DX W/WO SPEC BR/WA SPX 04/15/2024 9:16 AM CHIEF CONTROLLER STATION Adenocarcinoma of stomach Special Needs MTL@0800 CT ABDOMEN PELVIS W CONTRAST Routine 11:18 AM CHIEF CONTROLLER STATION .CBC Routine 04/12/2024 9:04 AM CHIEF CONTROLLER STATION LIPASE LEVEL Routine 04/12/2024 9:04 AM CHIEF CONTROLLER STATION AMYLASE LEVEL Routine 04/12/2024 9:04 AM CHIEF CONTROLLER STATION LACTATE DEHYDROGENASE Routine 04/12/2024 9:04 AM CHIEF CONTROLLER STATION FRACTIONATED BILIRUBIN Routine 9:04 AM CHIEF CONTROLLER STATION PHOSPHORUS LEVEL Routine 04/12/2024 9:04 AM CHIEF CONTROLLER STATION MAGNESIUM LEVEL Routine 04/12/2024 9:04 AM CHIEF CONTROLLER STATION COMPREHENSIVE METABOLIC PANEL Routine 9:04 AM CHIEF CONTROLLER STATION COMPLETE BLOOD COUNT W/ DIFFERENTIAL Routine 04/12/2024 9:04 AM CHIEF CONTROLLER STATION .CBC Routine 04/09/2024 11:09 AM CHIEF CONTROLLER STATION Encounter for other preprocedural examination Atherosclerosis of coronary 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, not otherwise specified THYROID STIMULATING HORMONE Routine 03/21 11:09 AM CHIEF CONTROLLER STATION Encounter for other preprocedural examination Atherosclerosis of coronary 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, not otherwise specified HEMOGLOBIN A1C Routine 04/09/2024 11:09 AM CHIEF CONTROLLER STATION 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 Encounter for other preprocedural examination COMPREHENSIVE METABOLIC PANEL Routine 11:09 AM CHIEF CONTROLLER STATION Encounter for other preprocedural examination Atherosclerosis of coronary 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, not otherwise specified COMPLETE BLOOD COUNT W/ DIFFERENTIAL Routine 04/09/2024 11:09 AM CHIEF CONTROLLER STATION Encounter for other preprocedural examination Atherosclerosis of coronary 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, not otherwise specified EKG, 12-LEAD (SCHEDULED) Routine 04/09/2024 Adenocarcinoma of stomach Hyperlipidemia, not otherwise specified Encounter for other preprocedural examination Atherosclerosis of coronary 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, not otherwise specified PATHOLOGY OUTSIDE INTERPRETATION Routine 04/02/[address] ABDOMEN AND PELVIS Routine 2023 8:21 AM CHIEF CONTROLLER STATION Cancer OSI CHEST Routine 03/23/2024 7:37 PM CHIEF CONTROLLER STATION Cancer OSI CT CHEST ABDOMEN PELVIS Routine 08/2023 7:37 PM CHIEF CONTROLLER STATION Cancer OSI CHEST Routine 03/23/2024 7:37 PM [facility] Cancer OSI CT CHEST Routine 03/22/2024 8:21 AM [employer] Cancer OSI CT ABDOMEN AND PELVIS Routine [...] INTRAOPERATIVE US STAT 01/02/2024 7:13 AM CDT [facility] ULTRASONIC GUIDANCE INTRAOPERATIVE 01/02/2024 6:08 AM CDT Renal mass Special Needs [email or web address]:Please collect and send tissue to pathology window with appropriate label. [place] LAPAROSCOPY SURG PARTIAL NEPHRECTOMY 01/02/2024 6:08 AM CDT Renal mass Special Needs [email or web address]:Please collect and send tissue to pathology window [...] 09/16/2023 4:23 PM CDT Renal mass after 08/23/2023 Results * CT Chest Abdomen Pelvis with Contrast (07/15/2024 4:38 PM [facility]) Anatomical Region Laterality Modality Abdomen, Pelvis, Chest Computed Tomography 07/15/2024 5:39 PM [employer] Impressions 07/15/2024 9:45 PM [employer] 1. Redemonstration of diffuse wall thickening of [...] and potentially actionable. Narrative 07/15/2024 9:45 PM [employer] FULL RESULT: Examination: CT CHEST ABDOMEN PELVIS [...] are unexpected and potentially actionable. Mary Kay Nevayolis Santamaria HAMMERER IMG CT ORDERABLES Final Result * Research Protocol [id number] (07/15/2024 10:01 AM [facility]) Only the most recent of2 resultswithin the time period is included. [facility] [address] Research Protocol Specimen Specimen Collected, Ready for Pickup. 07/15/2024 12:[address] [facility] Blood Venipuncture / Unknown 07/15/2024 10:01 AM [employer] 07/15/2024 10:10 AM [facility] Marianela Hutchinson MD RESEARCH LAB Z CODES Final Re sult [facility] Unless otherwise noted, all lab tests performed by: Division of Pathology and Laboratory Medicine [address] [place] [id number] * (ABNORMAL) .CBC (07/15/2024 10:01 AM [facility]) Only the most recent of11 resultswithin the time period is included. [facility] [address] White Blood Cell 6.7 4.1 - 10.5 K/uL 07/15/2024 10:33 AM [facility] Red Blood Cell 4.91 4.30 - 6.04 M/uL 07/15/2024 10:33 AM [facility] Hemoglobin 12.4(L) 13.3 - 17.4 g/dL 07/15/2024 10:33 AM [facility] Hematocrit 37.8(L) 39.5 - 51.8 % 07/15/2024 10:33 AM [facility] Mean Cell Volume 77(L) 82 - 99 fL 07/15/2024 10:33 AM [facility] Mean Cell Hemoglobin 25.3(L) 26.6 - 33.2 pg 07/15/2024 10:33 AM [facility] Mean Cell Hemoglobin Concentration 32.8 31.1 - 35.2 g/dL 07/15/2024 10:33 AM [facility] RDW-SD 40.9 37.5 - 49.7 fL 07/15/2024 10:33 AM [facility] Red Cell Diameter Width 14.8 11.6 - 15.5 % 07/15/2024 10:33 AM [facility] Platelet 226 160 - 397 K/uL 07/15/2024 10:33 AM [facility] Mean Platelet Volume 9.6 9.1 - 12.6 fL 07/15/2024 10:33 AM [facility] INRBC 0.0 0.0 - 0.1 /100 WBC 07/15/2024 10:33 AM [facility] Comment: The INRBC (instrument NRBC) value reflects the enumeration of nucleated red blood cells contained in a 200uL sample of whole blood analyzed by the instrument. This value may differ from the NRBC value reported in a manual differential, which is based on a 100 cell differential. Neutrophil % 63.5 43.2 - 72.7 % 07/15/2024 10:33 AM [facility] Lymphocyte % 25.4 16.8 - 46.2 % 07/15/2024 10:33 AM [facility] Monocyte % 8.5 5.1 - 12.5 % 07/15/2024 10:33 AM [facility] Eosinophil % 2.1 0.4 - 6.3 % 07/15/2024 10:33 AM [facility] Basophil % 0.4 0.2 - 1.4 % 07/15/2024 10:33 AM [facility] IGRE % 0.1 0.1 - 1.5 % 07/15/2024 10:33 AM [facility] Comment:The IGRE% includes M etamyelocytes, Myelocytes and Promyelocytes. Neutrophil Abs 4.25 1.95 - 7.25 K/uL 07/15/2024 10:33 AM [facility] Lymphocyte Abs 1.70 1.01 - 3.24 K/uL 07/15/2024 10:33 AM [facility] Monocyte Abs 0.57 0.24 - 0.85 K/uL 07/15/2024 10:33 AM [facility] Eosinophil Abs 0.14 0.02 - 0.50 K/uL 07/15/2024 10:33 AM [facility] Basophil Abs 0.03 0.02 - 0.09 K/uL 07/15/2024 10:33 AM [facility] IG Abs 0.01 0.01 - 0.12 K/uL 07/15/2024 10:33 AM [facility] Blood Peripheral blood specimen / Unknown Venipuncture / Unknown 07/15/2024 10:01 AM [facility] 07/15/2024 10:09 AM [facility] Gillian Gomez PA-C LAB BLOOD ORDERABLES Final Result [facility] Unless otherwise noted, all lab tests performed by: Division of Pathology and Laboratory Medicine [address] [place] [id number] * (ABNORMAL) CMP (07/15/2024 10:01 AM [facility]) Only the most recent of10 resultswithin the time period is included. Bilirubin Total 0.4 0.0 - 1.2 mg/dL 07/15/2024 11:15 AM [facility] Comment:Indocyanine Green (I CG) may cause falsely elevated bilirubin results. Total and direct bilirubin must not be measured from samples containing indocyanine green. False elevation of total bilirubin can be seen in patients with IgG concentrations above 28 g/L. eGFR 98 >=60 mL/min/1. 73 sq. m 07/15/2024 11:15 AM [facility] Comment: The eGFRcr is calculated [...] 6.4 - 8.3 gm/dL 07/15/2024 11:15 AM [facility] Calcium Level Total 9.6 8.2 - 10.2 mg/dL 07/15/2024 11:15 AM [facility] Alkaline Phosphatase 117 40 - 129 U/L 07/15/2024 11:15 AM [facility] Albumin Level 4.4 3.5 - 5.2 gm/dL 07/15/2024 11:15 AM [facility] AST 22 <=40 U/L 07/15/2024 11:15 AM [facility] ALT 13 <=41 U/L 07/15/2024 11:15 AM [facility] Sodium Level 138 136 - 145 mmol/L 07/15/2024 11:15 AM [facility] Potassium Level 4.1 3.4 - 4.5 mmol/L 07/15/2024 11:15 AM [facility] Chloride 101 98 - 107 mmol/L 07/15/2024 11:15 AM [facility] CO2 27 22 - 29 mmol/L 07/15/2024 11:15 AM [facility] Anion Gap 10 4 - 14 mmol/L 07/15/2024 11:15 AM [facility] Creatinine 0.90 0.67 - 1.17 mg/dL 07/15/2024 11:15 AM [facility] BUN 10 6 - 23 mg/dL 07/15/2024 11:15 AM [facility] Glucose Level 181(H) 70 - 99 mg/dL 07/15/2024 11:15 AM [facility] Comment: Effective 12/14/15, the glucose reference [...] Unknown Venipuncture / Unknown 07/15/2024 10:01 AM [facility] [employer] [employer] 07/15/2024 10:09 AM [facility] Gillian Gomez PA-C LAB BLOOD ORDERABLES Final Result Performing Organization Address City/[facility]/ZIP Co de Phone Number [facility] Unless otherwise noted, all lab tests performed by: Division of Pathology and Laboratory Medicine [address] [place] [id number] * Phosphorus Level (07/15/2024 10:01 AM [facility]) Only the most recent of6 resultswithin the time period is included. Phosphorus Level 2.7 2.5 - 4.5 mg/dL 07/15/2024 11:15 AM [facility] Blood Peripheral blood specimen / Unknown Venipuncture / Unknown 07/15/2024 10:01 AM [employer] 07/15/2024 10:09 AM [facility] Gillian Gomez PA-C LAB BLOOD ORDERABLES Final Result [facility] Unless otherwise noted, all lab tests performed by: Division of Pathology and Laboratory Medicine [address] [place] [phone] * Magnesium Level (07/15/2024 10:01 AM [facility] [employer] [employer]) Only the most recent of6 resultswithin the time period is included. Magnesium Level 1.8 1.6 - 2.6 mg/dL 07/15/2024 11:15 AM [employer] Blood Peripheral blood specimen / Unknown Venipuncture / Unknown 07/15/2024 10:01 AM [employer] 07/15/2024 10:09 AM [facility] [employer] Gillian Gomez PA-C LAB BLOOD ORDERABLES Final Result Performing Organization Address [facility] Co de Phone Number [facility] Unless otherwise noted, all lab tests performed by: Division of Pathology and Laboratory Medicine [address] [place] [phone] * LDH (07/15/2024 10:01 AM [employer]) Only the most recent of6 resultswithin the time period is included. Pathologist [facility] LDH 202 135 - 225 U/L 07/15/2024 11:15 AM [facility] Blood Peripheral blood specimen / Unknown Venipuncture / Unknown 07/15/2024 10:01 AM [employer] 07/15/2024 10:09 AM [employer] Narrative [facility] - 07/15/2024 11:15 AM [employer] Results greater than 1651 U/L may not be reliable due to matrix effect with extended dilution as it exceeds the assembly line leader's recommended limit. Caution should be exercised when interpreting such values and done in conjunction with clinical context. Gillian Gomez PA-C LAB BLOOD ORDERABLES Final Result Performing Organization Address City/State/[facility] Co de Phone Number [facility] Unless otherwise noted, all lab tests performed by: Division of Pathology and Laboratory Medicine [address] [place] [phone] * CEA (07/15/2024 10:01 AM [facility]) Only the most recent of5 resultswithin the time period is included. Carcinoembryonic Antigen 3.0 <=3.8 ng/mL 07/15/2024 11:26 AM [employer] [facility] Blood Peripheral blood specimen / Unknown Venipuncture / Unknown 07/15/2024 10:01 AM [employer] 07/15/2024 10:09 AM [employer] Narrative [facility] - 07/15/2024 11:26 AM [employer] Reference Ranges (age 20-69 years): Non-smoker: <= 3.8 ng/mL Smoker: <= 5.5 ng/mL This test is measured by electrochemiluminescence immunoassay on Cornelius Nikki immunoassay analyzers. Results obtained in different methods are not interchangeable. Gillian Gomez PA-C LAB BLOOD ORDERABLES Final Result Performing Organization Address City/[facility]/ZIP Co de Phone Number [facility] Unless otherwise noted, all lab tests performed by: Division of Pathology and Laboratory Medicine [address] [place] [address] * IHC Workup (07/07/2024 12:29 PM [employer]) Tissue 07/07/2024 12:2 9 PM [employer] 07/07/2024 12:29 PM [facility] [employer] [employer] Gillian Gomez PA-C [facility]ARK[facility] ORDERABLE S Final Result Performing Organization Address [facility] de Phone [place] [address], * (ABNORMAL) POC Glucose Screen - Fingerstick (06/30/2024 1:23 PM [facility]) Only the most recent of24 resultswithin the time period is included. Glucose Screen 168(H) 70 - 99 mg/dL 06/30/2024 1:25 PM [employer] POC Sample Type Capillary 06/30/2024 1:25 PM [employer] Blood 06/30/2024 1:23 PM [employer] 06/30/2024 1:25 PM [employer] Narrative [facility] - 06/30/2024 1:25 PM [employer] Capillary blood samples, e.g. obtained by fingerstick, [...] POCT ORDERABLES - DE VICE Final Result [facility] Unless otherwise noted, all lab tests performed by: Division of Pathology and Laboratory Medicine [facility] [place] [address] * Pathology Biopsy Interpretation (06/30/2024 12:51 PM [employer]) Only the most recent of3 resultswithin the time period is included. Addendum 1 By immunohistochemistry, approximately 10% of the tumor cells show weakly to moderately cytoplasmic staining for claudin 18. By immunohistochemistry the combined positive score (CPS) for PD-L1 is <1. 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 07/10/2024 8:47 AM [facility] Gross Description A: Esophagus, lower esophageal ulcer at 37cm: Multiple soft light castillo tissue fragments, 0.7 x 0.6 x 0.1 cm in aggregate, entirely submitted in A1. ET 07/10/2024 8:47 AM [facility] Biomarker Block(s) Block for biomarker testing: A1 07/10/2024 8:47 AM [facility] Disclaimer "Some tests reported here may have been developed and performance characteristics determined by [facility] Pathology and Laboratory Medicine. These tests have not been specifically cleared or approved by the U.S. Food and Drug Administration. If applicable, controls were reviewed and showed appropriate reactivity." 07/10/2024 8:47 AM [facility] Tissue (Esophagus) 06/30/2024 12:51 PM [employer] 06/30/2024 2:51 PM [employer] us Brandon Galo MD LAB PATHOLOGY ORDERA BLES Edited Result - Final [facility] [address] [place] [address], [place] * (ABNORMAL) POC Chem 8 (06/30/2024 11:10 AM [employer]) Only the most recent of2 resultswithin the time period is included. POC Sodium 136(L) 138 - 146 mmol/L 06/30/2024 11:[address] [facility] POC Potassium 4.5 3.5 - 4.9 mmol/L 06/30/2024 11:[address] [facility] POC Chloride 100 98 - 109 mmol/L 06/30/2024 11:[address] [facility] POC VTCO2 27 24 - 29 mmol/L 06/30/2024 11:[address] [facility] POC Anion Gap 14 10 - 20 mmol/L 06/30/2024 11:[address] [facility] POC BUN 30(H) 8 - 26 mg/dL 06/30/2024 11:[address] [facility] POC Creatinine 1.1 0.6 - 1.3 mg/dL 06/30/2024 11:[address] [facility] Comment:Medications, especia lly hydroxyurea or supplements, such as ascorbate, can interfere with test results causing a falsely and significantly higher result than expected. If a problem is suspected with a patient's result, a sample should be sent to the laboratory for confirmatory testing. POC I Glu 182(H) 70 - 99 mg/dL 06/30/2024 11:[address] [facility] Comment:Medications, especia lly hydroxyurea or supplements, such as ascorbate, can interfere with test results causing a falsely and significantly higher result than expected. If a problem is suspected with a patient's result, a sample should be sent to the laboratory for confirmatory testing. POC Ionized Calcium 1.26 1.12 - 1.32 mmol/L 06/30/2024 11:[address] [facility] POC Hct 39.0 38.0 - 51.0 % 06/30/2024 11:[address] [facility] POC Hgb 13.3 12.0 - 17.0 gm/dL 06/30/2024 11:[address] [facility] Comment:Hematocrit values fr om the iSTAT [...] standard. POC Sample Type Venous 11:[address] [facility] POC eGFR 77 >=60 mL/min/1.7 3 sq. m 06/30/2024 11:[address] [facility] Comment: The eGFRcr is calculated with [...] for CKD. Blood 06/30/2024 11:1 0 AM [employer] 06/30/2024 11:13 AM [facility] - 06/30/2024 11:13 AM [employer] Method description: The i-STAT is an analyzer [...] VICE Final Result Performing Organization Address [facility] de Phone Number [facility] Unless otherwise noted, all lab tests performed by: Division of Pathology and Laboratory Medicine [address] [place] [phone] * EKG, 12-Lead (Scheduled) (06/29/2024) Only the most recent of3 resultswithin the time period is included. Mary Kay Santamaria APRN ECG ORDERABLES Final R esult Performing Organization Address [facility] de Phone Number [facility] * PETCT F18 FDG (Fluorodeoxyglucose) with contrast (06/20/2024 12:42 PM [facility]) Anatomical Region Laterality Modality Whole Body Positron Emissio n Tomography (PET) 06/20/2024 3:10 PM [facility] Impressions 06/20/2024 4:38 PM [facility] Biopsy-proven malignancy in the region of the [...] and potentially actionable. Narrative 06/20/2024 4:38 PM [employer] FULL RESULT: Examination: 18F-FDG-PET/CT with contrast, 06/20/2024 [...] * Transferrin with TIBC (06/01/2024 11:10 AM [facility]) Transferrin 211 200 - 360 mg/dL 06/01/2024 12:15 PM [employer] Total Iron Binding Capacity 295 250 - 450 mcg/dL 06/01/2024 12:15 PM [employer] Blood Peripheral blood specimen / Unknown Venipuncture / Unknown 06/01/2024 11:10 AM [employer] 06/01/2024 11:23 AM [employer] Marianela Hutchinson MD LAB BLOOD ORDERABLES Final Re sult [facility] Unless otherwise noted, all lab tests performed by: Division of Pathology and Laboratory Medicine [address] [place] [phone] * (ABNORMAL) Iron Level (06/01/2024 11:10 AM [facility]) Iron Level 38(L) 59 - 158 mcg/dL 06/01/2024 12:15 PM [facility] Is patient fasting? No 06/01/2024 12:15 PM [facility] Blood Peripheral blood specimen / Unknown Venipuncture / Unknown 06/01/2024 11:10 AM [employer] 06/01/2024 11:23 AM [employer] Marianela Hutchinson MD LAB BLOOD ORDERABLES Final Re sult [facility] Unless otherwise noted, all lab tests performed by: Division of Pathology and Laboratory Medicine [address] [place] [address] [facility] Unless otherwise noted, all lab tests performed by: Division of Pathology and Laboratory Medicine [address] [place] [address] * Ferritin Level (06/01/2024 11:10 AM [employer]) Ferritin Level 59 30 - 400 ng/mL 06/01/2024 12:15 PM [employer] Blood Peripheral blood specimen / Unknown Venipuncture / Unknown 06/01/2024 11:10 AM [facility] 06/01/2024 11:23 AM [employer] Narrative [facility] - 06/01/2024 12:15 PM [employer] Reference range established for age 20 - 60 years us Marianela Hutchinson MD LAB BLOOD ORDERABLES Final Re sult [facility] Unless otherwise noted, all lab tests performed by: Division of Pathology and Laboratory Medicine [address] [place] [phone] * Tip Verification Central Vascular Access Device (04/15/2024 3:50 PM [employer]) Narrative John Fong MD - 04/15/2024 3:50 PM [employer] John Fong MD 04/15/2024 3:50 PM [facility] Device Tip Verification Performed by: John Fong MD Authorized by: John Fong MD CVAD Properties Date device placed: 04/15/2024 Device placement location: [facility] Catheter Type: Implanted venous port Catheter lumen: Single lumen Vein location: Internal jugular vein Laterality: Right Tip in good position and cleared for infusion John Fong MD IV THERAPY ORDERABLES Final Re sult * XR Chest 1 View Portable (04/15/2024 2:45 PM [employer]) Anatomical Region Laterality Modality Chest Digital Radiogra phy 04/15/2024 2:50 PM [employer] Impressions 04/15/2024 2:53 PM [facility] 1. Right infusion port catheter terminates over [...] and potentially actionable. Narrative 04/15/2024 2:53 PM [employer] FULL RESULT: Examination: XR CHEST 1 VW [...] IMAGING ORDERAB LES Final Result * Cytology Non-Chronograph Operator Interpretation (04/15/2024 12:33 PM [employer]) Gross Description 4 Pap Stain Slides 750 ml. clear yellow fluid Specimen concentrated by cytocentrifugation technique 4 4:07 PM [employer] Major Classification [facility]/benign 4 4:07 PM [employer] [facility] Diagnosis Peritoneal washing: No metastatic carcinoma identified Reactive mesothelial cells and histiocytes 4 4:07 PM [employer] Retained/Biomark er Testing SR:4S 4 4:07 PM [employer] [facility] Informational Points Some tests reported here may have been developed and performance characteristics determined by [facility] Pathology and Laboratory Medicine. These tests have not been specifically cleared or approved by the U.S. Food and Drug Administration. 4 4:07 PM [employer] Washing (Peritoneal Washing) 04/15/2024 12:33 PM [employer] 04/15/2024 1:10 PM [employer] John Fong MD LAB CYTOLOGY ORDERABLES Final Result [facility] [place] [address], * Pathology Surgical Interpretation (04/15/2024 12:13 PM [employer]) Only the most recent of2 resultswithin the time period is included. Submitted Clinical History Adenocarcinoma of stomach [C16.9] 04/20/2024 8:13 PM [employer] Diagnosis A. Falciform ligament, resection: Fibroadipose tissue, no tumor present 04/20/2024 8:13 PM [facility] Gross Description A: Falciform ligament, falciorm ligament biopsy....or 16: Consists of a fragment of castillo-yellow, lobulated fat (0.8 x 0.6 x 0.5 cm) entirely submitted in cassette A1. EF 04/20/2024 8:13 PM [facility] Disclaimer "Some tests reported here may have been developed and performance characteristics determined by [facility] Pathology and Laboratory Medicine. These tests have not been specifically cleared or approved by the U.S. Food and Drug Administration. If applicable, controls were reviewed and showed appropriate reactivity." 04/20/2024 8:13 PM [facility] Tissue (Falciform Ligament) 04/15/2024 12:13 PM [employer] 04/15/2024 1:18 PM [employer] us John Fong MD LAB PATHOLOGY ORDERABLES Final Result [facility] [address] [address], [place] * [place] Central Venous Place Exchange (04/15/2024 11:40 AM [employer]) Narrative Systemgenerated, Documentation - 04/15/2024 11:40 AM [employer] This procedure requires no interpretation from the radiologist. John Fong MD IMG FLUOROSCOPY ORDERABLES Fin al Result * CT Abdomen Pelvis with IV Contrast (04/12/2024 11:18 AM [employer]) Anatomical Region Laterality Modality Abdomen, Pelvis Computed Tomogra phy 04/12/2024 11:5 2 AM [employer] Impressions 04/12/2024 12:11 PM [facility] Wall thickening and slight mucosal irregularity of [...] and potentially actionable. Narrative 04/12/2024 12:11 PM [employer] FULL RESULT: Examination: CT ABDOMEN PELVIS W [...] Result * Fractionated Bilirubin (04/12/2024 9:04 AM [employer]) Bilirubin Direct 04/12/20 9:47 AM [employer] Comment: Direct and indirect bilirubin will not be reported when Total bilirubin result is <0.3 mg/dL Indocyanine Green (ICG) may cause falsely elevated bilirubin results. Total and direct bilirubin must not be measured from samples containing indocyanine green. Bilirubin Indirect 2023 9:47 AM [employer] Comment:Direct and indirect bilirubin will not be reported when Total bilirubin result is <0.3 mg/dL Bilirubin Total <0.3 0.0 - 1.2 mg/dL 04/12/2024 9:47 AM [employer] Comment: Direct and indirect bilirubin will not [...] Unknown Venipuncture / Unknown 04/12/2024 9:04 AM [employer] 04/12/2024 9:08 AM [employer] us Nghia Zhu MD LAB BLOOD ORDERABLES Final Resu lt [facility] Unless otherwise noted, all lab tests performed by: Division of Pathology and Laboratory Medicine [address] [place] [id number] * (ABNORMAL) Lipase (04/12/2024 9:04 AM [employer]) Lipase Level 311(H) 13 - 60 U/L 04/12/2024 10:09 AM [employer] [facility] Blood Peripheral blood specimen / Unknown Venipuncture / Unknown 04/12/2024 9:04 AM [employer] 04/12/2024 9:08 AM [employer] Narrative [facility] - 04/12/2024 10:09 AM [facility] Reference range established based on adult population us Nghia Zhu MD LAB BLOOD ORDERABLES Final Resu lt Performing Organization Address [facility] Co de Phone Number [facility] Unless otherwise noted, all lab tests performed by: Division of Pathology and Laboratory Medicine [address] [place] [id number] * (ABNORMAL) Amylase (04/12/2024 9:04 AM [employer]) Amylase Level 171(H) 28 - 100 U/L 04/12/2024 9:47 AM [employer] [facility] Blood Peripheral blood specimen / Unknown Venipuncture / Unknown 04/12/2024 9:04 AM [employer] 04/12/2024 9:08 AM [employer] Nghia Zhu MD LAB BLOOD ORDERABLES Final Resu lt Performing Organization Address [facility] de Phone Number [facility] Unless otherwise noted, all lab tests performed by: Division of Pathology and Laboratory Medicine [address] [place] [address] * TSH (04/09/2024 11:09 AM [employer]) Only the most recent of2 resultswithin the time period is included. Thyroid Stimulating Hormone 1.53 0.27 - 4.20 mcunit/mL 04/09/2024 12:23 PM [employer]ATION [facility] Blood Peripheral blood specimen / Unknown Venipuncture / Unknown 04/09/2024 11:09 AM [employer] 04/09/2024 11:19 AM [employer] Ceci Nicholson MD LAB BLOOD ORDERABLES Final Resu lt Performing Organization Address City/[facility] Co de Phone Number [facility] Unless otherwise noted, all lab tests performed by: Division of Pathology and Laboratory Medicine [address] [place] [address] * (ABNORMAL) Hemoglobin A1c (04/09/2024 11:09 AM [employer]) Only the most recent of3 resultswithin the time period is included. Hemoglobin A1c 7.0(H) 4.3 - 5.6 % 04/09/2024 12:14 PM [employer] [facility] Blood Peripheral blood specimen / Unknown Venipuncture / Unknown 04/09/2024 11:09 AM [employer] 04/09/2024 11:19 AM [employer] Narrative [facility] - 04/09/2024 12:14 PM [employer] HbA1c values >=6.5% are diagnostic of diabetes mellitus. Diagnosis should be confirmed by repeat testing. Therapeutic Action suggested: >8.0% HbA1c; Goal of therapy: <7.0% HbA1c Ceci Nicholson MD LAB BLOOD ORDERABLES Final Resu lt [facility] Unless otherwise noted, all lab tests performed by: Division of Pathology and Laboratory Medicine [address] [place] [address] * Pathology Outside Interpretation (04/02/2024) Materials Received Accession#, Stained, Block, Unstained Collected Received A. [id number], 20 SS, 0 BLOCKS, 0 USS 04/02/2024 04/22/2024 04/22/2024 5:36 PM [employer] [facility] Diagnosis Outside ([id number], 20 SS, 0 BLOCKS, 0 USS, collected [...] CELL FEATURES. See comment. /04/22/2024 5:36 PM [employer] [facility] Comment Part A. There is no evidence of malignancy on H&E and immunohistochemical stain for Cytokeratin AE1/AE3. Of note, the biopsy may not be entry level account representative of the entire lesion. Please [...] immunohistochemistry: Negative (Score: 0) 04/22/2024 5:36 PM [employer]ATION [facility] Biomarker Block(s) Block for biomarker testing: C1 Normal block: N/A 04/22/2024 5:36 PM [employer]ATION [facility] Disclaimer "Some tests reported here may have been developed and performance characteristics determined by [facility] Pathology and Laboratory Medicine. These tests have not been specifically cleared or approved by the U.S. Food and Drug Administration. If applicable, controls were reviewed and showed appropriate reactivity." 04/22/2024 5:36 PM [employer]ATION [facility] Tissue 04/02/2024 04/22/2024 6:4 0 AM [employer]ATION Sybil Edmonds MD LAB PATHOLOGY ORDERABLES Final R esult [facility] [address] [place] [address], * OSI CT Abdomen and Pelvis (04/01/2024 8:21 AM [employer]IE[employer]ATION) Only the most recent of2 resultswithin the time period is included. Narrative Systemgenerated, Documentation - 04/27/2024 8:22 AM [employer]IEF CONTRO[employer]ER [employer]ATION Study acquired at another institution. For comparison only. No [facility] originated interpretation requested or available. us Eagle Regan Zhu DO IMG OUTSIDE IMAGE ORDERAB LES Final Result * OSI CT CHEST ABDOMEN PELVIS (03/23/2024 7:37 PM [employer]ATION) Narrative Systemgenerated, Documentation - 04/09/2024 7:37 PM [employer] Study acquired at another institution. For comparison only. No [facility] originated interpretation requested or available. Margoth Souza MD IMG OUTSIDE IMAGE ORDERABLES Fin al Result * OSI Chest (03/23/2024 7:37 PM [employer]ATION) Only the most recent of4 resultswithin the time period is included. Narrative Systemgenerated, Documentation - 04/09/2024 7:37 PM [employer]ATION Study acquired at another institution. For comparison only. No [facility] originated interpretation requested or available. us Margoth Souza MD IMG OUTSIDE IMAGE ORDERABLES Fin al Result * OSI CT Chest (03/22/2024 8:21 AM [employer]IEF CONTROLLER [employer]ATION) Narrative Systemgenerated, Documentation - 04/27/2024 8:21 AM [employer]IE[employer]ER [employer]ATION Study acquired at another institution. For comparison only. No [facility] originated interpretation requested or available. us Eaglewerner Zhu DO IMG OUTSIDE IMAGE ORDERAB LES Final Result * (ABNORMAL) Basic Metabolic Panel- Total Calcium (01/03/2024 2:59 PM CDT) Only the most recent of7 resultswithin the time period is included. eGFR 71 >=60 mL/min/1. 73 sq. m 01/03/2024 3:44 PM CDT [facility] Comment: The eGFRcr is calculated [...] Mcmanus APRN LAB BLOOD ORDERABLES Final Result [facility] Unless otherwise noted, all lab tests performed by: Division of Pathology and Laboratory Medicine [address] [place] [address], [place] [address] * Zinc Transporter 8 Ab (01/03/2024 4:22 AM CDT) Zinc T8 AB <15.0 <15.0 U/mL 01/15/2024 11:18 AM CDT [facility] Comment: ADDITIONAL INFORMATION This test has been modified from the assembly line leader's instructions. Its performance characteristics were determined by [facility] in a manner consistent with CLIA requirements. This test has not been cleared or approved by the U.S. Food and Drug Administration. Test Performed by: [place] [address] Bereavement Coordinator: Mary Jane Topete Ph.D.; CLIA# [id number] Blood Peripheral blood specimen / Unknown Venipuncture / Unknown 01/03/2024 4:22 AM CDT 01/03/2024 4:55 AM CDT Alicia Mcmanus APRN LAB BLOOD ORDERABLES Final Result [facility] * Islet Antigen 2 (IA-2) Antibody (01/03/2024 4:22 AM CDT) IA-2 Antibody 0.00 <=0.02 nmol/L 01/07/2024 12:20 AM CDT [facility] Comment: ADDITIONAL INFORMATION This test was developed and its performance characteristics determined by [facility] in a manner consistent with CLIA requirements. This test has not been cleared or approved by the U.S. Food and Drug Administration. Test Performed by: [address] [address] Bereavement Coordinator: Mary Jane Topete Ph.D.; CLIA# [id number] Blood Peripheral blood specimen / Unknown Venipuncture / Unknown 01/03/2024 4:22 AM CDT 01/03/2024 4:55 AM CDT Alicia Restreporoy FRANK LAB BLOOD ORDERABLES Final Result Performing Organization Address [facility] de Phone Number [facility] * GREG Ab Assay (01/03/2024 4:22 AM CDT) GAD65 Ab-[place] 0.00 <=0.02 nmol/L 01/07/2024 12:01 AM CDT [facility] TIFF Comment: ADDITIONAL INFORMATION This test was developed and its performance characteristics determined by [facility] in a manner consistent with CLIA requirements. This test has not been cleared or approved by the U.S. Food and Drug Administration. Test Performed by: [place] [address] Bereavement Coordinator: Mary Jane Topete Ph.D.; CLIA# [id number] Blood Peripheral blood specimen / Unknown Venipuncture / Unknown 01/03/2024 4:22 AM CDT 01/03/2024 4:55 AM CDT Alicia Restrepoemily MARIE LAB BLOOD ORDERABLES Final Result Performing Organization Address [facility] de Phone Number [facility] * Insulin Ab (01/03/2024 4:22 AM CDT) Insulin Ab-[place] 0.00 0.00 - 0.02 nmol/L 01/06/2024 5:14 PM CDT [facility]FF Comment: ADDITIONAL INFORMATION This test was developed and its performance characteristics determined by [facility] in a manner consistent with CLIA requirements. This test has not been cleared or approved by the U.S. Food and Drug Administration. Test Performed by: [address] [address] Bereavement Coordinator: Mary Jane Topete Ph.D.; CLIA# [id number] Blood Peripheral blood specimen / Unknown Venipuncture / Unknown 01/03/2024 4:22 AM CDT 01/03/2024 4:55 AM CDT Alicia Mcmanus APRN LAB BLOOD ORDERABLES Final Result [facility] * C Peptide (01/03/2024 4:22 AM CDT) Pathologist [facility] C-Peptide 2.12 1.10 - 4.40 ng/mL 01/03/2024 5:48 AM CDT [facility] Blood Peripheral blood specimen / Unknown Venipuncture / Unknown 01/03/2024 4:22 AM CDT 01/03/2024 4:55 AM CDT Alicia Mcmanus APRN LAB BLOOD ORDERABLES Final Result [facility] Unless otherwise noted, all lab tests performed by: Division of Pathology and Laboratory Medicine [address] [place] [address] * (ABNORMAL) Hemogram (01/02/2024 7:20 PM CDT) [...] 0.1 /100 WBC 01/02/2024 7:33 PM CDT [facility] Comment: The INRBC [...] PRICE LAB BLOOD ORDERABLES Final R esult [facility] Unless otherwise noted, all lab tests performed by: Division of Pathology and Laboratory Medicine [address] [place] [address] * (ABNORMAL) Beta Hydroxy Quant (01/02/2024 7:20 [...] range based on fasting. us Alicia Mcmanus HAMMERER LAB BLOOD ORDERABLES Final Result [facility] Unless otherwise noted, all lab tests performed by: Division of Pathology and Laboratory Medicine [address] [place] [address] * (ABNORMAL) ABG+ (ABG, Na, K, Cl, Glu, Hgb, Hct, Lactate, Ion Ca) (01/02/2024 10:38 AM CDT) Only the most recent of2 resultswithin the time period is included. Sodium Arterial 140 136 - 146 mmol/L 01/02/2024 10:44 AM CDT [facility] Potassium Arterial 3.7 3.4 - 4.5 mmol/L 01/02/2024 10:44 AM CDT [facility] Chloride Arterial 103 98 - 106 mmol/L 01/02/2024 10:44 AM CDT [facility] Glucose Arterial 270(H) 70 - 105 mg/dL 01/02/2024 10:44 AM CDT [facility] Hgb Art 12.9(L) 13.5 - 17.5 g/dL 01/02/2024 10:44 AM CDT [facility] Hematocrit Arterial 40(L) 42 - 52 % 01/02/2024 10:44 AM CDT [facility] Lactate Arterial 1.0(H) 0.4 - 0.8 mmol/L 01/02/2024 10:44 AM CDT [facility] Calcium Ionized Arterial 1.14(L) 1.15 - 1.29 mmol/L 01/02/2024 10:44 AM CDT [facility] pH Arterial 7.35 7.35 - 7.45 01/02/2024 10:44 AM T [facility] P CO2 Arterial 42.9 35.0 - 48.0 mmHg 01/02/2024 10:44 AM T [facility] P O2 Arterial 164(H) 83 - 108 mmHg 01/02/2024 10:44 AM T [facility] Bicarbonate Arterial 24 21 - 28 mmol/L 01/02/2024 10:44 AM T [facility] WB Anion Gap 13 7 - 16 mmol/L 01/02/2024 10:44 AM T [facility] Base Excess Arterial -2 -2 - 3 mmol/L 01/02/2024 10:44 AM T [facility] Oxygen Saturation Arterial 99 95 - 99 % 01/02/2024 10:44 AM T [facility] Oxygen FLOW Rate/ FiO2 01/02/2024 10:44 AM [facility] O2 Therapy 01/02/2024 10:44 AM [facility] Art Kirill Test Not Applicable (Arterial Line Draw) 01/02/2024 10:44 AM [facility] Blood Arterial blood specimen / Unknown [...] MD LAB BLOOD ORDERABLES Final Re sult [facility] Unless otherwise noted, all lab tests performed by: Division of Pathology and Laboratory Medicine [facility] [place] [address] * Intraoperative Ultrasound - For Image Storage [...] MD BLOOD BANK TEST ORDERABLES Final Result [facility] - TRANSFUSION SERVICES [facility] [address] [facility] [address] [place] [address] * Preop Updated Expiration (12/23/2023 8:51 AM CDT) PREOP STATUS 01/02/2024 11:33 PM CDT [facility] - TRANSF[facility]ION SERVICES PREOP EXP DATE 01/02/2024 01/02/2024 11:33 PM CDT [facility] Blood Peripheral blood specimen / Unknown Venipuncture / Unknown 12/23/2023 8:51 AM CDT 12/23/2023 9:00 AM CDT us Margoth Souza MD BLOOD BANK TEST ORDERABLES Final Result [facility] - TRANSFUSION SERVICES [facility] [address] [facility] [address] [place] [address] * (ABNORMAL) Urinalysis with Reflex Culture (12/23/2023 8:51 AM CDT) Only the most recent of2 resultswithin the time period is included. Urine Appearance Clear Clear 12/23/19 9:33 AM CDT [facility] Urine Color Straw Colorless, Straw, Yellow, Dark Yellow, Straw-Yellow 12/23/2023 9:33 AM CDT [facility] Urine Specific [place] 1.032 1.003 - 1.035 12/23/2023 9:33 AM CDT [facility] Urine pH 6.0 5.0 - 8.0 12/23/2023 9:33 AM CDT [facility] Urine Glucose >=1000(A) Negative mg/dL 12/23/2023 9:33 AM CDT [facility] Urine Ketones Negative Negative mg/dL 12/23/2023 9:33 AM CDT [facility] Urine Blood Negative Negative 12/23/2023 9:33 AM CDT [facility] Urine Protein 30(A) Negative mg/dL 12/23/2023 9:33 AM CDT [facility] Urine Bilirubin Negative Negative 9:33 AM CDT [facility] Urine Urobilinogen Negative Negative 12/23/2023 9:33 AM CDT [facility] Urine Nitrite Negative Negative 12/23/2023 9:33 AM CDT [facility] Urine Leukocyte Esterase Negative Negative 12/23/2023 9:33 AM CDT [facility] Urine Mucous Not Seen Not Seen, Trace /HPF 12/23/2023 9:33 AM CDT [facility] Urine Bacteria Not Seen Not Seen /HPF 12/23/2023 9:33 AM CDT [facility] Urine Squamous Epithelial Cells OCC Not Seen, OCC, Rare /HPF 12/23/2023 9:33 AM CDT [facility] Urine WBC <1 <=2 /HPF 12/23/2023 9:33 AM CDT [facility] Urine RBC 1 <=2 /HPF 12/23/2023 9:33 AM CDT [facility] Urine Voided urine specimen / Unknown Non-blood Collection / Unknown 12/23/2023 8:51 AM CDT 12/23/2023 9:10 AM CDT Narrative [facility] - 12/23/2023 9:33 AM CDT Some reporting parameters within the Urinalysis test have changed due to the implementation of new instrumentation in the Main [place], allowing greater sensitivity of measurement. Urinalysis results reported by the [facility] using existing instrumentation, as well as Urinalysis testing performed manually or by back-up methodology at the main candor, will remain relatively unchanged. New reporting parameters and units will now be reported for all campuses. Margoth Souza MD URINE ORDERABLES Final Result [facility] Unless otherwise noted, all lab tests performed by: Division of Pathology and Laboratory Medicine [address] [place] [address] [place] [address] * 30-Day Pre-Op Type and Screen (12/23/2023 [...] MD BLOOD BANK TEST ORDERABLES Final Result [facility] - TRANSFUSION SERVICES [facility] [address] [facility] [address] [place] [address] * TMP Interpretation Exception PreOp Expiration (12/23/2023 [...] AM CDT 12/23/2023 9:00 AM CDT Result [facility] Margoth Souza MD BLOOD BANK TEST ORDERABLES Final Result [facility] - TRANSFUSION SERVICES [facility] [address] [address] [place] [address] * ACTH (12/09/2023 9:45 AM CDT) Only [...] with extended dilution as it exceeds the assembly line leader's recommended limit. ACTH reference intervals are established for the morning hours from 7-10 am. Due to the circadian rhythm of ACTH levels in plasma, the sample collection time must be noted. Caution should be exercised when interpreting such values and done in conjunction with clinical context. Veronica Del Castillo APRN LAB BLOOD ORDERABLES Final Result [facility] Unless otherwise noted, all lab tests performed by: Division of Pathology and Laboratory Medicine [address] [place] [address] * DHEA Sulfate (12/09/2023 9:45 AM CDT) Pathologist [facility] DHEAS-[place] 81 20 - 299 mcg/dL 12/10/2023 12:10 PM CDT [facility] TIFF Comment: Test Performed by: [facility] [address] [place] [address] Bereavement Coordinator: Mary Jane Topete Ph.D.; CLIA# [id number] Blood Peripheral blood specimen / Unknown Venipuncture / Unknown 12/09/2023 9:45 AM CDT 12/09/2023 9:56 AM CDT [facility] APRN LAB BLOOD ORDERABLES Final Result [facility] TIFF * Cortisol, Total (12/09/2023 9:45 AM CDT) Only the most recent of4 resultswithin the time period is included. Cortisol 11.39 4.82 - 19.50 mcg/dL 12/09/2023 11:00 AM CDT [facility] Blood Peripheral blood specimen / Unknown Venipuncture / Unknown 12/09/2023 9:45 AM CDT 12/09/2023 9:55 AM CDT Narrative [facility] - 12/09/2023 11:00 AM CDT Cortisol [...] (4-8 pm): 2.47 - 11.9 mcg/dL us Veronica Del Castillo FRANK LAB BLOOD ORDERABLES Final Result [facility] Unless otherwise noted, all lab tests performed by: Division of Pathology and Laboratory Medicine [address] [place] [address] * IR CT GUIDED BIOPSY RENAL (10/03/2023 10:27 AM CDT) Anatomical Region Laterality Modality Abdomen/Pelvis, Organ (liver/spleen/kidney) Computed Tomography Narrative 10/04/2023 9:03 AM CDT Table formatting from the original result was not included. Date of Procedure: 10/03/23 Attending Physician: Kumar Comer MD Customizer: None Pre Procedure Diagnosis: Renal mass Post [...] with Interventional Radiology required. Shazia Arriaza MD IM IR ORDERABLES Final Re sult * Prothrombin Time (10/03/2023 9:27 AM CDT) Prothrombin Time 12.6 11.9 - 14.5 second(s) 10/03/2023 9:57 AM CDT [facility] International Normalization Ratio 0.98 0.87 - 1.12 10/03/2023 9:57 AM CDT [facility] Blood Peripheral blood specimen / Unknown Venipuncture / Unknown 10/03/2023 9:27 AM CDT 10/03/2023 9:28 AM CDT Conrado-Dannielle Ng PA-C LAB BLOOD ORDERABLES Final Result [facility] [address] [place] [address] * Type and Screen (10/03/2023 9:27 AM CDT) ABORh O POS 10/03/2023 9:17 AM CDT [facility] - TRANSFUSION SERVICES ABSC Negative 10/03/2023 9:17 [...] AM CDT 10/03/2023 9:52 AM CDT us Conrdao-Dannielle D Hernandez [facility] BLOOD BANK TEST ORDERABLES Final Result [facility] - TRANSFUSION SERVICES [facility] [address] [place] [address] * X-ray Chest 2 Views (09/19/2023 9:24 [...] and potentially actionable. us Shazia Arriaza MD [facility] ORD ERABLES Final Result * Metanephrines Fractionated (09/16/2023 4:24 PM CDT) Pathologist [facility] Normetane Free-[place] 0.43 <0.90 nmol/L 09/19/2023 2:59 PM CDT [facility] Metanephr Free-[place] <0.20 <0.50 nmol/L 09/19/2023 2:59 PM CDT [facility] Comment: ADDITIONAL INFORMATION This test was developed and its performance characteristics determined by [facility] in a manner consistent with CLIA requirements. This test has not been cleared or approved by the U.S. Food and Drug Administration. Test Performed by: [facility] - [address] [address] Bereavement Coordinator: Scot Skelton M.D. Ph.D.; CLIA# [id number] Blood Peripheral blood specimen / Unknown Venipuncture / Unknown 09/16/2023 4:24 PM CDT 09/16/2023 4:41 PM CDT Shazia Arriaza MD LAB BLOOD ORDERABLES Final Result Performing Organization Address City/[facility]/ZIP Co de Phone Number [facility] * Hepatitis C Virus Antibody (09/16/2023 4:24 PM CDT) [facility] [address] HCVAb. Non Reactive Non Reactive 09/17/2023 9:11 [...] ORDERABLES Final Result Performing Organization Address [facility] Co de Phone Number [facility] Unless otherwise noted, all lab tests performed by: Division of Pathology and Laboratory Medicine [address] [place] [address] * Aldosterone Level (09/16/2023 4:24 PM CDT) [facility] [address] Aldosterone-[place] 8.1 <=21 ng/dL 09/20/2023 1:02 AM CDT [facility] Comment: ADDITIONAL INFORMATION Reference range for patients 11 years and older is based on upright A.M. collection from subjects without sodium restrictions. This test was developed and its performance characteristics determined by [facility] in a manner consistent with CLIA requirements. This test has not been cleared or approved by the U.S. Food and Drug Administration. Test Performed by: [facility] - [address] [address] Bereavement Coordinator: Scot Skelton M.D. Ph.D.; CLIA# [id number] Blood Peripheral blood specimen / Unknown Venipuncture / Unknown 09/16/2023 4:24 PM CDT 09/16/2023 4:41 PM CDT Shazia Arriaza MD LAB BLOOD ORDERABLES Final Result Performing Organization Address [facility] Co de Phone Number [facility] TIFF * Renin Activity (09/16/2023 4:24 PM CDT) [facility] [address] [facility] 4.3 ng/mL/h 09/19 3:42 PM CDT [facility] TIFF Comment: REFERENCE VALUE (Peripheral vein specimen) Na-deplete, upright: Mean: 5.9 Range: 2.9-10.8 Na-replete, upright: Mean: 1.0 Range: < or =0.6-3.0 ADDITIONAL INFORMATION Testing performed by Liquid Chromatography-Tandem Mass Spectrometry (LC-MS/MS). This test was developed and its performance characteristics determined by [facility] in a manner consistent with CLIA requirements. This test has not been cleared or approved by the U.S. Food and Drug Administration. Test Performed by: [facility] - [address] [address] Bereavement Coordinator: Scot Skelton M.D. Ph.D.; CLIA# [id number] Blood Peripheral blood specimen / Unknown Venipuncture / Unknown 09/16/2023 4:24 PM CDT 09/16/2023 4:41 PM CDT Result [facility] Shazia Arriaza MD LAB BLOOD ORDERABLES Final Result Performing Organization Address [facility] Co de Phone Number [facility] TIFF * Urine Culture (09/16/2023 4:24 PM CDT) [facility] [address] Urine Culture Normal site mirna present. Generally of low significance. Correlate with clinical data and culture history. 09/18/2023 8:31 AM CDT [facility] Urine Voided urine specimen / Unknown Non-blood Collection / Unknown 09/16/2023 4:24 PM CDT 09/16/2023 4:41 PM CDT us Shazia Arriaza MD MICROBIOLOGY - GENERAL ORD ERABLES Final Result [facility] Unless otherwise noted, all lab tests performed by: Division of Pathology and Laboratory Medicine [address] [place] [id number] * T4 (09/16/2023 4:24 PM CDT) [facility] [address] Thyroxine 7.0 4.5 - 11.7 mcg/dL 09/16/2023 5:55 PM CDT [facility] Blood Peripheral blood specimen / Unknown Venipuncture / Unknown 09/16/2023 4:24 PM CDT 09/16/2023 4:41 PM CDT us Shazia Arriaza MD LAB BLOOD ORDERABLES Final Result Performing Organization Address [facility] Co de Phone Number [facility] Unless otherwise noted, all lab tests performed by: Division of Pathology and Laboratory Medicine [address] [place] [id number] * Confirm ABORh (09/16/2023 4:23 PM CDT) [facility] [address] ABORh Confirm O POS 09/16/2023 4:15 PM CDT [facility] - TRANSF[facility]ION [facility] Blood Peripheral blood specimen / Unknown Venipuncture / Unknown 09/16/2023 4:23 PM CDT 09/16/2023 4:41 PM CDT Result Awa Arriaza MD BLOOD BANK TEST ORDERABLES Final Result Performing Organization Address City/[facility]/ZIP Co de Phone Number [facility] - TRANSFUSION SERVICES [facility] [address] [place], [place] [address]vd [address]2.[address] [place] [address] after 08/23/[address] [phone] Advance Directives * Full Code (Latest Code Status on File) Date Activated Date Inactivated Comments 04/12/2024 1:24 PM 04/12/2024 5:43 PM * Full Code Date Activated Date Inactivated Comments 01/02/2024 1:48 PM 01/03/2024 7:17 PM Care Teams Pole Climber Relationship Specialty Start Date End Date Margoth Souza MD [address] [place] [address] [email or web address] PCP - General Urology 07/30/23 04/14/24 Eagle Zhu DO [address] [place] [phone] [email or web address] PCP - External Primary Care Provider Family Practice 04/08/24 Marianela Hutchinson MD [address] [place] [phone] [email or web address] PCP - General Gastrointestinal Medical Oncology 05/04/24 Mary Jane Cassidy MD [address] [place] [phone] [email or web address] Consulting Physician Endocrinology 12/09/23 Barry He MD [address] [place] [phone] [email or web address] Consulting Physician Internal Medicine 12/23/23 Patience Hunt MD [address] [place] [phone] [email or web address] Consulting Physician Endocrinology 12/31/23 Marianela Hutchinson MD [address] [place] [phone] [email or web address] Consulting Physician Gastrointestinal Medical Oncology 04/13/24 Margoth Souza MD [address] [place] [phone] [email or web address] Consulting Physician Urology 04/15/24 Ceci Nicholson MD [address] [place] [phone] [email or web address] Consulting Physician Internal Medicine 04/09/24 Sigifredo Davenport MD [address] [place] [phone] [email or web address] Consulting Physician Internal Medicine 06/29/24 Abilio Ng PA-C [address] [place] [phone] Physician Customizer Interventional Radiology 10/02/23
[2024-08-22] MEDS ORDERED: ONDANSETRON 4 MG/2 ML VIAL ONE ×2 (10:59→11:28)
[2024-08-22 11:13] LABS: Absolute Basophils 0.1 K/uL (0-0.5); Absolute Eosinophils 0.1 K/uL (0-0.5); Absolute Lymphocytes (CBC) 2.5 K/uL (0.7-4.9); Absolute Monocytes 0.6 K/uL (0.1-1.3); Absolute Neutrophil 3.5 K/uL (1.8-8.0); Basophils % 1.1 % (0-1.3); Eosinophils % 1.8 % (0-4.4); Hematocrit 36.7 % (39.6-49.0); Hemoglobin 12.6 g/dL (13.6-17.9); Lymphocytes % 36.8 % (15.3-44.8); MCH 26.4 pg (27.0-35.0); MCHC 34.2 g/dL (32.0-36.0); MCV 77.1 fL (80-100); MPV 7.5 fL (7.6-11.3); Neutrophils % 51.3 % (41.7-73.7); Nucleated Red Blood Cells % 0.1 % (0-0); Platelets 329 thou/uL (152-406); RBC Red Blood Cell Count 4.76 M/uL (4.33-5.43); Red Cell Distribution Width 15.9 % (12.1-15.2)
[2024-08-22 11:18] LABS: PT Prothrombin Time 11.6 SECONDS (10-13.0); Protime INR 1.02
[2024-08-22] MEDS ORDERED: LABETALOL 20 MG/4ML SYRINGE IV ONE ×3 (11:18→11:46)
[2024-08-22 11:32] LABS: ALT/SGPT 19 U/L (16-61); AST/SGOT 17 U/L (15-37); Albumin 3.6 g/dL (3.4-5.0); Albumin/Globulin Ratio 0.8 (1.1-1.8); Alkaline Phosphatase 113 U/L (45-117); Anion Gap 13.3 mEq/L (5.0-15.0); BUN Blood Urea Nitrogen 10 mg/dL (7-18); Bicarbonate 25 mEq/L (21-32); Bilirubin Total 0.3 mg/dL (0.2-1.0); Globulin 4.4 g/dL (2.3-3.5); Glomerular Filtration Rate 62 ml/min (=/>90); Glucose Level 167 mg/dL (74-106); Lipase 415 U/L (13-75); Magnesium 1.6 mg/dL (1.6-2.4); NT PRO-BNP 363 pg/mL (<125); Potassium 4.3 mEq/L (3.5-5.1); Sodium Level 136 mEq/L (136-145); Troponin High Sensitivity 13.1 pg/mL (<58.9)
[2024-08-22 11:34] LABS: Bilirubin Direct < 0.2 mg/dL (0-0.2); Bilirubin Indirect, Calculated 0.1 mg/dL (0.2-0.8)
[2024-08-22] MEDS ORDERED: PROMETHAZINE INJ 25 MG/ML AMP ONE (11:55)
[2024-08-22] MEDS ORDERED: HYDROMORPHONE HCL 1 MG/ML INJ ONE (12:10)
[2024-08-22] MEDS ORDERED: LABETALOL HCL 100 MG/20 ML ONE (12:26)
[2024-08-22] MEDS ORDERED: METOCLOPRAMIDE 10 MG/2mL INJ ONE (12:51)
--- NOTE | 2024-08-22 13:38 | ER ---
Nurse's Notes [facility] Name: Zeke Mackay Sr Age: 59 yrs Sex: Male : 1965 Arrival Date: 08/22/2024 Time: 10:39 Bed 20 Private MD: Diagnosis: Vomiting, gastric cancer Presentation: 08/22 10:46 Chief complaint: Patient states: n/v since this morning, hx of stomach cancer. iw Coronavirus screen: At this time, the client does not indicate any symptoms associated with coronavirus-19. Ebola Screen: No symptoms or risks identified at this time. Initial Sepsis Screen: Does the patient meet any 2 criteria? HR > 90 bpm. Does the patient have a suspected source of infection? No. Patient's initial sepsis screen is negative. Risk Assessment: Do you want to hurt yourself or someone else? Patient reports no desire to harm self or others. 10:46 Method Of Arrival: Wheelchair iw 10:46 Acuity: RICKEY 3 iw 11:13 Onset of symptoms was August 22, 2024. 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 - Infectious Disease History:: Denies. - Social history:: Smoking status: unknown. Screenin:12 [facility] ED Fall Risk Assessment (Adult) History of falling in the last 3 months, kc6 including since admission No falls in past 3 months (0 pts) Confusion or Disorientation No (0 pts) Intoxicated or Sedated No (0 pts) Impaired Gait No (0 pts) Mobility Assist Device Used No (0 pt) Altered Elimination No (0 pt) Score/Fall Risk Level 0 - 2 = Low Risk Oriented to surroundings, Maintained a safe environment, Educated pt \T\ family on fall prevention, incl call for assistance when getting out of bed. Abuse screen: Denies threats or abuse. Denies injuries from another. Nutritional screening: No deficits noted. Tuberculosis screening: No symptoms or risk factors identified. Assessment: 11:15 General: Appears distressed, uncomfortable, well groomed, well developed, Behavior is kc6 cooperative, quiet. Pain: Complains of pain in thoracic area and abdomen Pain does not radiate. Pain currently is 3 out of 10 on a pain scale. Pain began suddenly. Neuro: Level of Consciousness is awake, alert, obeys commands, Oriented to person, place, time, situation, Appropriate for age. Cardiovascular: Denies chest pain, shortness of breath, Capillary refill < 3 seconds. Respiratory: Airway is patent Trachea midline Respiratory effort is even, unlabored, Respiratory pattern is regular, symmetrical. GI: Abdomen is flat, non-distended, Pt is actively vomiting undigested food, Bowel sounds present X 4 quads. Abd is soft X 4 quads Abdomen is tender to palpation in abdomen diffusely Reports lower abdominal pain, upper abdominal pain, intolerance of fluids, intolerance of food, nausea, vomiting, Patient currently denies diarrhea. : No signs and/or symptoms were reported regarding the genitourinary system. EENT: No signs and/or symptoms were reported regarding the EENT system. Derm: Skin is intact, is healthy with good turgor, Skin is diaphoretic, Skin is normal, Skin temperature is cool. Musculoskeletal: No signs and/or symptoms reported regarding the musculoskeletal system. Circulation, motion, and sensation intact. Range of motion: intact in all extremities. 12:15 Reassessment: Patient appears in no apparent distress at this time. No changes from kc6 previously documented assessment. Patient and/or family updated on plan of care and expected duration. Pain level reassessed. Patient is alert, oriented x 3, equal unlabored respirations, skin warm/dry/pink. Patient states symptoms have not improved. 13:22 Reassessment: Patient appears in no apparent distress at this time. No changes from kc6 previously documented assessment. Patient and/or family updated on plan of care and expected duration. Pain level reassessed. Patient is alert, oriented x 3, equal unlabored respirations, skin warm/dry/pink. Patient states feeling better. Patient states symptoms have improved. 14:04 Reassessment: d/c pending transport home. daughter states she is on the way. kc6 Vital Signs: 10:51 BP 198 / 110; Pulse 88; Resp 19; Temp 96.5; Pulse Ox 100% on R/A; Pain 0/10; iw 11:12 BP 220 / 105; kc6 11:39 BP 225 / 105; Pulse 90; Resp 19 S; Pulse Ox 100% on R/A; kc6 12:01 BP 215 / 95; kc6 12:13 BP 224 / 109; Pulse 95; Resp 19 S; Pulse Ox 96% on R/A; kc6 12:52 BP 191 / 66; Pulse 76; Resp 16 S; Pulse Ox 92% on R/A; kc6 12:59 BP 177 / 81; kc6 13:21 BP 165 / 81; Pulse 70; Resp 18 S; Pulse Ox 94% on R/A; kc6 14:03 BP 181 / 87; Pulse 75; Resp 18 S; Pulse Ox 95% on R/A; kc6 14:28 BP 164 / 73; kc6 10:51 Pain Scale: Adult iw ED Course: 10:41 Patient arrived in ED. mr 10:44 Veena Zhu MD is Attending Physician. sp3 10:47 Triage completed. iw 11:03 Merna Angeles, RN is Primary Nurse. kc6 11:05 Initial lab(s) drawn, by nv, sent to lab. Inserted saline lock: 22 gauge in left wrist, zm using aseptic technique. Blood collected. Flushed with 10 mL NS. 11:05 Patient maintains SpO2 saturation greater than 95% on room air. kc6 11:06 Basic Metabolic Panel Sent. zm 11:06 CBC with Diff Sent. zm 11:06 LFT's Sent. zm 11:06 Magnesium Sent. zm 11:06 NT PRO-BNP Sent. zm 11:06 PT-INR Sent. zm 11:06 Troponin HS Sent. zm 11:06 Lipase Sent. zm 11:12 Patient has correct armband on for positive identification. Bed in low position. Call [facility] light in reach. Side rails up X 1. Adult w/ patient. Pulse ox on. NIBP on. Door closed. Noise minimized. Lights dimmed. Warm blanket given. Pillow given. Verbal reassurance given. 11:13 Arm band placed on. kc6 11:15 One-on-one care X 90 minutes. kc6 12:44 EKG done, by ED staff, reviewed by Veena Zhu MD. kc6 14:38 No provider procedures requiring assistance completed. IV discontinued, intact, kc6 bleeding controlled, No redness/swelling at site. Pressure dressing applied. Administered Medications: 11:12 Drug: Ondansetron IVP 4 mg IVP once; over 2 minutes Route: IVP; Site: left forearm; kc6 11:27 Follow up: Response: No adverse reaction; Nausea unchanged; Vomiting unchanged kc6 11:27 Drug: Labetalol IV 10 mg IV at calculated rate once Route: IV; Rate: calculated rate; kc6 Site: left forearm; 12:42 Follow up: Response: No adverse reaction; Blood pressure is unchanged; IV Status: kc6 Completed infusion; IV Intake: 2ml 11:39 Drug: Ondansetron IVP 4 mg IVP once; over 2 minutes Route: IVP; Site: left forearm; kc6 12:43 Follow up: Response: No adverse reaction; Nausea unchanged; Vomiting unchanged kc6 11:39 Drug: Labetalol IV 20 mg IV at calculated rate once over 2 mins Route: IV; Rate: kc6 calculated rate; Infused Over: 2 mins; Site: left forearm; 12:43 Follow up: Response: No adverse reaction; Blood pressure is unchanged; IV Status: kc6 Completed infusion; IV Intake: 4ml 12:01 Drug: Labetalol IV 40 mg IV at calculated rate once over 2 mins Route: IV; Rate: kc6 calculated rate; Infused Over: 2 mins; Site: left forearm; 12:43 Follow up: Response: No adverse reaction; Blood pressure is unchanged; IV Status: kc6 Completed infusion; IV Intake: 8ml 12:01 Drug: Promethazine IVP 12.5 mg IVP once Route: IVP; Site: left forearm; kc6 12:43 Follow up: Response: No adverse reaction kc6 12:13 Drug: HYDROmorphone IVP 1 mg IVP once Route: IVP; Site: left forearm; kc6 12:43 Follow up: Response: No adverse reaction; RASS: Alert and Calm (0) kc6 12:30 Not Given (Not on formulary): [id number] mg IVP once sp3 13:54 Not Given (Hemodynamic Parameters): [id number] mg IV at calculated rate once; kc6 administer at a rate of 2 mg /min 13:54 Not Given (Other Intervention Used): lcqmoxxtgpvbim15 mg IVP once; over 1 to 2 minutes kc6 Medication: 14:39 VIS not applicable for this client. kc6 Intake: 12:42 IV: 2ml; Total: 2ml. kc6 12:43 IV: 4ml; Total: 6ml. kc6 12:43 IV: 8ml; Total: 14ml. kc6 Outcome: 13:37 Discharge ordered by . [email or web address] 14:38 Discharged to home via wheelchair, with family, kc6 14:38 Condition: improved 14:38 Discharge instructions given to patient, family, Instructed on discharge instructions, follow up and referral plans. no drinking with medication, no driving heavy equipment, medication usage, Demonstrated understanding of instructions, follow-up care, medications, Prescriptions given X 1, 14:39 Patient left the ED. kc6 Signatures: Hollie Garcia, Regina Merritt, RN Veena Mast MD MD sp3 Lianet Merino Kaitlyn, RN RN kc6
--- NOTE | 2024-08-22 13:38 | EDPHYS ---
Physician Documentation [facility] Name: Zeke Mackay Sr Age: 59 yrs Sex: Male : 1965 Arrival Date: 08/22/2024 Time: 10:39 Bed 20 Private MD: ED Physician Veena Zhu HPI: 08/22 10:48 This 59 yrs old Male presents to ER via Wheelchair with complaints of Vomiting. sp3 10:48 59-year-old male with history of diabetes, cervical stenosis, prior DKA, hypertension, sp3 ongoing gastric cancer which is being evaluated at [facility], history of CAD with CABG, now presents to the ED for recurrent vomiting. No significant pain reported. Review of system negative for fever, headache, URI symptoms, neck pain, chest pain, shortness of breath, back pain, flank pain, diarrhea, blood or mucus in the emesis, syncope, near syncope, rash, bleeding elsewhere, or any other signs or symptoms on ROS at this time.. 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 - Infectious Disease History:: Denies. - Social history:: Smoking status: unknown. ROS: 10:51 Constitutional: Negative for fever, chills, and weight loss, Eyes: Negative for injury, sp3 pain, redness, and discharge, ENT: Negative for injury, pain, and discharge, Neck: Negative for injury, pain, and swelling, Cardiovascular: Negative for chest pain, palpitations, and edema, Respiratory: Negative for shortness of breath, cough, wheezing, and pleuritic chest pain, Back: Negative for injury and pain, MS/Extremity: Negative for injury and deformity, Skin: Negative for injury, rash, and discoloration, Neuro: Negative for headache, weakness, numbness, tingling, and seizure, Psych: Negative for depression, anxiety, suicide ideation, homicidal ideation, and hallucinations, Allergy/Immunology: Negative for hives, rash, and allergies, Endocrine: Negative for neck swelling, polydipsia, polyuria, polyphagia, and marked weight changes, Hematologic/Lymphatic: Negative for swollen nodes, abnormal bleeding, and unusual bruising, 10:51 All other systems are negative, Exam: 10:51 Constitutional: This is a well developed, well nourished patient who is awake, alert, sp3 and in no acute distress. Head/Face: Normocephalic, atraumatic. Eyes: Pupils equal round and reactive to light, extra-ocular motions intact. Lids and lashes normal. Conjunctiva and sclera are non-icteric and not injected. Cornea within normal limits. Periorbital areas with no swelling, redness, or edema. ENT: Nares patent. No nasal discharge, no septal abnormalities noted. External auditory canals are clear. Oropharynx with no redness, swelling, or masses, exudates, or evidence of obstruction, uvula midline. Mucous membranes moist. Neck: Trachea midline, no thyromegaly or masses palpated, and no cervical lymphadenopathy. Supple, full range of motion without nuchal rigidity, or vertebral point tenderness. No Meningismus. Chest/axilla: Normal chest wall appearance and motion. Nontender with no deformity. No lesions are appreciated. Cardiovascular: Regular rate and rhythm with a normal S1 and S2. No gallops, murmurs, or rubs. Normal PMI, no JVD. No pulse deficits. Respiratory: Lungs have equal breath sounds bilaterally, clear to auscultation and percussion. No rales, rhonchi or wheezes noted. No increased work of breathing, no retractions or nasal flaring. Back: No spinal tenderness. No costovertebral tenderness. Full range of motion. Skin: Warm, dry with normal turgor. Normal color with no rashes, no lesions, and no evidence of cellulitis. MS/ Extremity: Pulses equal, no cyanosis. Neurovascular intact. Full, normal range of motion. Neuro: Awake and alert, GCS 15, oriented to person, place, time, and situation. Cranial nerves II-XII grossly intact. Motor strength 5/5 in all extremities. Sensory grossly intact. Cerebellar exam normal. Normal gait. Psych: Awake, alert, with orientation to person, place and time. Behavior, mood, and affect are within normal limits. 10:51 Abdomen/GI: Patient having active emesis and very nauseated. Very mild pain to palpation epigastrically. No peritoneal signs, rebound or guarding. Nonsurgical abdomen., 14:24 ECG was reviewed by the Attending Physician. EKG demonstrates normal sinus rhythm at 72 sp3 bpm with normal intervals, normal QRS, normal axis, nonspecific diffuse ST/T changes without evidence of acute ischemia. Vital Signs: 10:51 BP 198 / 110; Pulse 88; Resp 19; Temp 96.5; Pulse Ox 100% on R/A; Pain 0/10; iw 11:12 BP 220 / 105; kc6 11:39 BP 225 / 105; Pulse 90; Resp 19 S; Pulse Ox 100% on R/A; kc6 12:01 BP 215 / 95; kc6 12:13 BP 224 / 109; Pulse 95; Resp 19 S; Pulse Ox 96% on R/A; kc6 12:52 BP 191 / 66; Pulse 76; Resp 16 S; Pulse Ox 92% on R/A; kc6 12:59 BP 177 / 81; kc6 13:21 BP 165 / 81; Pulse 70; Resp 18 S; Pulse Ox 94% on R/A; kc6 14:03 BP 181 / 87; Pulse 75; Resp 18 S; Pulse Ox 95% on R/A; kc6 14:28 BP 164 / 73; kc6 10:51 Pain Scale: Adult iw MDM: 10:45 Medical Screening Exam initiated sp3 10:51 Data reviewed: vital signs, nurses notes, old medical records, lab test result(s), EKG, sp3 radiologic studies. ED course: 59-year-old male in the setting of gastric cancer now with recurrent emesis. I believe this is all complications secondary to his cancer. He is set for chemo next week. Will check general labs, EKG and administer ondansetron and other antiemetics as needed. IV fluids will be held secondary to blood pressure 198/110 I believe it is fully accurate given his active emesis.. 12:09 ED course: Patient continues to have hypertension. We are escalating doses of sp3 labetalol. Promethazine also administered for nausea control. Patient does endorse abdominal pain rating to his back. Will obtain CT scan of the abdomen pelvis with IV contrast. Further medications as indicated.. 13:10 ED course: Symptoms now improved after meds. Blood pressures under [address] sp3 scan not obtained after CT from 5 days ago was reviewed.. 08/22 10:48 Order name: Basic Metabolic Panel; Complete Time: 11:36 sp3 08/22 10:48 Order name: CBC with Diff; Complete Time: 11:36 sp3 08/22 10:48 Order name: LFT's; Complete Time: 11:36 sp3 08/22 10:48 Order name: Magnesium; Complete Time: 11:36 sp3 08/22 10:48 Order name: NT PRO-BNP; Complete Time: 11:36 sp3 08/22 10:48 Order name: PT-INR; Complete Time: 11:36 sp3 08/22 10:48 Order name: Troponin HS; Complete Time: 11:36 sp3 08/22 10:48 Order name: Lipase; Complete Time: 11:36 sp3 08/22 10:48 Order name: EKG; Complete Time: 10:48 sp3 08/22 10:48 Order name: EKG - Nurse/Tech; Complete Time: 12:42 sp3 08/22 10:48 Order name: IV Saline Lock; Complete Time: 11:03 sp3 08/22 10:48 Order name: Labs collected and sent; Complete Time: 11:03 sp3 08/22 10:48 Order name: O2 Per Protocol; Complete Time: 11:03 sp3 08/22 10:48 Order name: O2 Sat Monitoring; Complete Time: 11:03 sp3 08/22 10:53 Order name: Recheck Blood Pressure; Complete Time: 11:12 sp3 Administered Medications: 11:12 Drug: Ondansetron IVP 4 mg IVP once; over 2 minutes Route: IVP; Site: left forearm; kc6 11:27 Follow up: Response: No adverse reaction; Nausea unchanged; Vomiting unchanged kc6 11:27 Drug: Labetalol IV 10 mg IV at calculated rate once Route: IV; Rate: calculated rate; kc6 Site: left forearm; 12:42 Follow up: Response: No adverse reaction; Blood pressure is unchanged; IV Status: kc6 Completed infusion; IV Intake: 2ml 11:39 Drug: Ondansetron IVP 4 mg IVP once; over 2 minutes Route: IVP; Site: left forearm; kc6 12:43 Follow up: Response: No adverse reaction; Nausea unchanged; Vomiting unchanged kc6 11:39 Drug: Labetalol IV 20 mg IV at calculated rate once over 2 mins Route: IV; Rate: kc6 calculated rate; Infused Over: 2 mins; Site: left forearm; 12:43 Follow up: Response: No adverse reaction; Blood pressure is unchanged; IV Status: kc6 Completed infusion; IV Intake: 4ml 12:01 Drug: Labetalol IV 40 mg IV at calculated rate once over 2 mins Route: IV; Rate: kc6 calculated rate; Infused Over: 2 mins; Site: left forearm; 12:43 Follow up: Response: No adverse reaction; Blood pressure is unchanged; IV Status: kc6 Completed infusion; IV Intake: 8ml 12:01 Drug: Promethazine IVP 12.5 mg IVP once Route: IVP; Site: left forearm; kc6 12:43 Follow up: Response: No adverse reaction kc6 12:13 Drug: HYDROmorphone IVP 1 mg IVP once Route: IVP; Site: left forearm; kc6 12:43 Follow up: Response: No adverse reaction; RASS: Alert and Calm (0) kc6 12:30 Not Given (Not on formulary): fvaaeeughnjiyoub16 mg IVP once sp3 13:54 Not Given (Hemodynamic Parameters): biijbdkey86 mg IV at calculated rate once; kc6 administer at a rate of 2 mg /min 13:54 Not Given (Other Intervention Used): igrztmgbwftujq25 mg IVP once; over 1 to 2 minutes kc6 Disposition Summary: 08/22/24 13:37 Discharge Ordered Notes: Location: Home sp3 Condition: Stable sp3 Diagnosis - Vomiting, gastric cancer sp3 Followup: sp3 - With: Private Physician - When: Upon discharge from the Emergency Department - Reason: Continuance of care Discharge Instructions: - Discharge Summary Sheet sp3 - Vomiting, Adult sp3 Forms: - Medication Reconciliation Form sp3 - Antibiotic Education sp3 - Prescription Opioid Use sp3 - Patient Portal Instructions sp3 - Leadership Thank You Letter sp3 Prescriptions: - promethazine 25 mg Oral tablet - take 1 tablet ORAL route every 6 hours As needed; 20 tablet; Refills: 0, sp3 Product Selection Permitted Critical care time excluding procedures: 11:58 Critical care time: Bedside Care: 20 minutes, Consultation: 5 minutes, Family sp3 Intervention: 10 minutes. Total time: 35 minutes Signatures: Dispatcher [facility] EDMS Regina Salamanca, RN RN iw Veena Zhu MD MD sp3 Merna Angeles RN RN kc6 Corrections: (The following items were deleted from the chart) 12:27 12:09 Abdomen Pelvis W Con+CT.RAD.BRZ ordered. EDWA EDMS 13:37 13:10 ED course: Symptoms not improved after meds. Blood pressures under [address] scan not obtained after CT from 5 days ago was reviewed.. sp3
[2024-08-22 15:04] VITALS: TEMP 96.5
[2024-08-22 15:13] VITALS: BP 164/73; O2SAT 95
--- NOTE | 2024-08-24 11:32 | EKG ---
Test Date: 2024-08-22 Test Time: 12:39:55 Retaining Room Cutter: SUNDAY MEASUREMENT RESULTS: Intervals: Rate: 72 TX: 182 QRSD: 80 QT: 412 QTc: 451 [place]: P: 57 TX: 182 QRS: 30 T: 120 INTERPRETIVE STATEMENTS: Normal sinus rhythm T wave abnormality, consider lateral ischemia Abnormal ECG Compared to ECG 08/16/2024 08:07:01 T-wave abnormality now present Possible ischemia now present Sinus arrhythmia no longer present Right-axis deviation no longer present ST (T wave) deviation no longer present Prolonged QT interval no longer present Electronically Signed On 08-24-24 11:29:20 CDT by Lucas Huang
== END 2024-08-22 14:39 | disposition home or self-care (01) ==
LOC: ER 10:39
DX: R11.10 Vomiting, unspecified (principal); C16.9 Malignant neoplasm of stomach, unspecified; Z85.528 Personal history of other malignant neoplasm of kidney; Z95.1 Presence of aortocoronary bypass graft
CPT/HCPCS: 96365; 93005; 85025; 80048; 36415; 83735; 85610; 80076; 84484; 83690; 83880; 96375; 99291; 99292; J2550; J1171; J2405 ×2; J2765

== ENCOUNTER 2024-09-09 02:50 | Emergency (ER) | payer OTHER, BC ==
--- OUTSIDE RECORDS SUMMARY | 2024-09-09 02:57 | XMS REPORT | Clinical Summary ---
Author Name Unknown Organization [facility] Address [address] [place] [address] Care Team Providers Care Hospice Care Transitions Coordinator Name Role Phone Margoth Souza MD Primary Care Provider [phone] Mary Jane Cassidy MD Unavailable [phone] Barry He MD Unavailable Patience Hunt MD Unavailable Eagle Zhu DO Unavailable [phone] Marianela Hutchinson MD Unavailable [phone] Margoth Souza MD Unavailable Ceci Nicholson MD Unavailable [phone] Marianela Hutchinson MD Primary Care Provider [phone] Sigifredo Davenport MD Unavailable Abilio Ng-C Unavailable [phone] Allergies No known active allergies Medications insulin [...] by Tylenol). 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 01/02/2024 04/14/2024 Diabetic ketoacidosis 2023 Overview (01/01/2024): Hospitalized locally 12/03/2023-12/06/2023 Encounters Date Type Department Care Team Description 09/07/2024 4:30 PM CDT Infusion Amb[facility] - [place] [address] [facility], 8th [place] [address] Marianela Hutchinson MD Castillo, Emmanuel, RN Adenocarcinoma of stomach (Primary Dx); Iron deficiency anemia, not otherwise specified 09/07/2024 1:00 PM CDT [facility] [address] [place] [address], 7th [place] [address] Marianela Hutchinson MD Adenocarcinoma of stomach (Primary Dx) 09/07/2024 10:41 AM CDT Hospital Encounter Diagnostic Laboratory Center [address] [place] [address] Marianela Hutchinson MD Adenocarcinoma of stomach 09/07/2024 Orders Only [facility] [address] [place] [address], 7th [place] [address] Marianela Hutchinson MD Adenocarcinoma of stomach (Primary Dx) 09/07/2024 Orders Only [facility] [address] [place] [address], 7th [place] [address] Radha Castellon [facility] Adenocarcinoma of stomach (Primary Dx); Iron deficiency anemia, not otherwise specified 09/07/2024 Travel 08/26/2024 7:41 PM CDT - 08/26/2024 11:59 PM CDT Hospital Encounter Ambulatory Treatment [facility] - Main Building [address] [place] [address], 2nd Floor, Elev[place] [address] Marianela Hutchinson MD Le, Lam, RN Adenocarcinoma of stomach (Primary Dx) Discharge Disposition: Home 08/24/2024 1:40 PM CDT [facility] [address] [place] [address], 7th [place] [address] Marianela Hutchinson MD Adenocarcinoma of stomach 08/24/2024 12:42 PM CDT - 08/24/2024 11:59 PM CDT Hospital Encounter Ambulatory Treatment Center - Main [address] Main dg, 2nd Floor, [place] [address] Gillian Gomez PA-C Harrison, Kishanda S RN Adenocarcinoma of stomach (Primary Dx) Discharge Disposition: Home 08/24/2024 11:16 AM CDT - 08/24/2024 12:41 PM CDT Hospital Encounter Diagnostic Laboratory Center [address] [place], [place] [id number] Gillian Gomez PA-C Adenocarcinoma of stomach Discharge Disposition: Home 08/24/2024 Orders Only [facility] [address] [place] [address] Main [facility], 7th [place] [address] Marianela Hutchinson MD Adenocarcinoma of stomach (Primary Dx) 08/24/2024 Telephone [facility] [address] [place] [address] Main [facility], 7th [place] [address] Mony Saavedra, RN 08/24/2024 Orders Only [facility] [address] [place] [address] Main [facility], 7th [place] [address] Radha Castellon [facility] Adenocarcinoma of stomach (Primary Dx) 08/24/2024 Travel 08/24/2024 Orders Only Ambulatory Treatment Center - Main [address] Main [facility], 2nd Floor, [place] [address] Marianela Hutchinson MD Adenocarcinoma of stomach (Primary Dx) 08/21/2024 Telephone [facility] [address] [place] [address] Main [facility], 7th [place] [address] Milagros Rogers RN 08/17/2024 Orders Only [facility] [address] [place] [address] Main [facility], 7th [place] [address] Gillian Gomez PA-C Adenocarcinoma of stomach (Primary Dx) 08/06/2024 Orders Only Gastrointestinal Center [facility] Main [facility], 7th [place] [address] Radha Castellon [facility] 07/22/2024 Orders Only Ambulatory Treatment Center - Blue [address] [facility], 8th [place] [address] Marianela Hutchinson MD Adenocarcinoma of stomach (Primary Dx) 07/21/2024 Telephone Ambulatory Treatment [facility] - [place] [address] [facility], 8th [place] [address] Rosanna Álvarez, ARTURO Chemotherapy Teaching 07/16/2024 2:40 PM LEAD FIRE PROTECTION ENGINEER [facility] [address] [place] [address], 7th [place] [address] Marianela Hutchinson MD Adenocarcinoma of stomach (Primary Dx) 07/16/2024 Orders Only [facility] [address] [place] [address] Main [facility], 7th [place] [address] Marianela Hutchinson MD Adenocarcinoma of stomach (Primary Dx) 07/16/2024 Orders Only [facility] [address] [place] [address], 7th [place] [address] Radha Castellon, [facility] Adenocarcinoma of stomach (Primary Dx) 07/16/2024 Travel 07/15/2024 10:08 AM LEAD FIRE PROTECTION ENGINEER - 07/15/2024 11:59 PM LEAD FIRE PROTECTION ENGINEER Hospital Encounter CT Imaging and Diagnostic Imaging [facility] Main dg, 3rd [place] [address] Mary Kay Santamaria APRN Adenocarcinoma of stomach Discharge Disposition: Home 07/15/2024 9:49 AM LEAD FIRE PROTECTION ENGINEER - 07/15/2024 10:07 AM LEAD FIRE PROTECTION ENGINEER Hospital Encounter Diagnostic Laboratory Center [address] [place] [address] [place] [address] Mary Kay Santamaria APRN Adenocarcinoma of stomach Discharge Disposition: Home 07/07/2024 Orders Only [facility] [address] Main Bldg, 7th [place] [address] Gillian Gomez PA-C Adenocarcinoma of stomach (Primary Dx) 07/06/2024 Telephone [facility] - Surgical Oncology [facility] Main Bldg, 7th [place] [address] Mary Kay Santamaria, DIE BAKER 07/06/2024 Orders Only [facility] - Surgical Oncology [address] [place] [address] Main dg, 7th [place] [address] Mary Kay Santamaria, DIE BAKER 07/06/2024 Orders Only [facility] [address] [place] [address] Main [facility], 7th [place] [address] Gillian Gomez PA-C Adenocarcinoma of stomach (Primary Dx) 07/06/2024 Multidisciplinary Visit [facility] [address] [place] [address] Main [facility], 7th [place] [address] Gillian Gomez PA-C 07/06/2024 Orders Only [facility] [address] [place] [address] Main dg, 7th [place] [address] Donnell Van Adenocarcinoma of stomach (Primary Dx) 07/02/2024 11:00 AM LEAD FIRE PROTECTION ENGINEER Nutrition Clinical Nutrition For your Nutrition appointment location directions please call: Marianela Hutchinson MD Munder, Kathryn, SCOTT Left without seen 07/02/2024 10:30 AM LEAD FIRE PROTECTION ENGINEER [facility] - Surgical Oncology [address] [place] [address] Main Bldg, 7th [place] [address] John Fong MD Adenocarcinoma of stomach 07/02/2024 Documentation [facility] - Surgical Oncology [address] [place] [address] Main Bldg, 7th [place] [address] John Fong MD 06/30/2024 3:33 PM LEAD FIRE PROTECTION ENGINEER Anesthesia Event Perioperative Evaluation and Management Center [address] [place] [address] Main Bldg, 6th [place] [address] Lien Antonio RN 06/30/2024 12:25 PM LEAD FIRE PROTECTION ENGINEER Anesthesia Event Endoscopy Center [address] [place] [address] Main [facility], 5th [place] [address] Susana Kelly MD 06/30/2024 12:00 PM LEAD FIRE PROTECTION ENGINEER - 06/30/2024 12:45 PM LEAD FIRE PROTECTION ENGINEER Surgery Endoscopy Center [address] [place] [address] Main [facility], 5th [place] [address] Brandon Alcala MD DIAGNOSTIC UPPER GASTROINTESTINAL ENDOSCOPY 06/30/2024 10:15 AM LEAD FIRE PROTECTION ENGINEER - 06/30/2024 2:24 PM LEAD FIRE PROTECTION ENGINEER Hospital Encounter Endoscopy Center [address] [place] [address], 5th [place] [address] Brandon Alcala MD Adenocarcinoma of stomach Discharge Disposition: Home 06/30/2024 Travel 06/29/2024 9:00 AM LEAD FIRE PROTECTION ENGINEER Consult Perioperative Evaluation and Management [address] [place] [address], 6th [place] [address] Mary Kay Santamaria APRN Vu, Khanh D, MD Encounter for preprocedural cardiovascular examination (Primary Dx); Coronary arteriosclerosis, not otherwise specified; Cardiomyopathy, not otherwise specified; Hypertension; 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; Type 2 diabetes mellitus with hyperglycemia; Dyslipidemia; Hyponatremia; Hyperkalemia; Adenocarcinoma of stomach; Paroxysmal atrial fibrillation; Hyperlipidemia, not otherwise specified 06/29/2024 8:00 AM LEAD FIRE PROTECTION ENGINEER POEM Appointments Perioperative Evaluation [facility] Management Center [address] [place] [address], 6th [place] [address] Marianela Hutchinson MD 06/29/2024 7:30 AM LEAD FIRE PROTECTION ENGINEER - 06/29/2024 11:59 PM LEAD FIRE PROTECTION ENGINEER Hospital Encounter [facility] - Cardiology [address] [place] [address] Main [facility], 2nd [place] [address] Mary Kay Santamaria APRN Adenocarcinoma of stomach Discharge Disposition: Home 06/29/2024 Travel 06/23/2024 Documentation [facility] [address] [place] [address], 7th [place] [address] Mony Saavedra, RN 06/22/2024 12:20 PM LEAD FIRE PROTECTION ENGINEER [facility] [address] [place] [address], [address] [place] [address] [place] [address] Marianela Hutchinson MD Adenocarcinoma, NOS of stomach, NOS 06/22/2024 Orders Only [facility] [address] [place] [address], [address] [place] [address] [place] [address] Radha Castellon [facility] 06/22/2024 Travel 06/20/2024 10:45 AM LEAD FIRE PROTECTION ENGINEER - 06/20/2024 11:59 PM LEAD FIRE PROTECTION ENGINEER Hospital Encounter Diagnostic Imaging Center [address] [place] [address], 3rd [place] [address] Adenocarcinoma, NOS of stomach, NOS; Malignant neoplasm of overlapping sites of esophagus Discharge Disposition: Home 06/20/2024 10:08 AM LEAD FIRE PROTECTION ENGINEER - 06/20/2024 10:44 AM LEAD FIRE PROTECTION ENGINEER Hospital Encounter Diagnostic Laboratory Center [address] [place] [address] Gillian Gomez PA-C Adenocarcinoma, NOS of stomach, NOS Discharge Disposition: Home 06/16/2024 Telephone [facility] - Surgical Oncology [address] [place] [address], 7th [place] [address] Mary Kay Santamaria, FRANK 06/15/2024 1:30 PM LEAD FIRE PROTECTION ENGINEER Infusion Ambulatory Treatment Center - Blue [address] [facility], 8th [place] [address] Marianela Hutchinson MD [facility] Hospital[facility] RN Adenocarcinoma of stomach (Primary Dx); Iron deficiency anemia, not otherwise specified 06/15/2024 12:40 PM LEAD FIRE PROTECTION ENGINEER [facility] [address] [place] [address], 7th [place] [address] Marianela Hutchinson MD Adenocarcinoma, NOS of stomach, NOS; Malignant neoplasm of overlapping sites of esophagus 06/15/2024 10:24 AM LEAD FIRE PROTECTION ENGINEER - 06/15/2024 11:59 PM LEAD FIRE PROTECTION ENGINEER Hospital Encounter Diagnostic Laboratory Center [address] [place] [address] Marianela Hutchinson MD Adenocarcinoma of stomach; Adenocarcinoma, NOS of stomach, NOS Discharge Disposition: Home 06/15/2024 Orders Only [facility] [address] [place] [address] Main [facility], 7th [place] [address] Radha Castellon, [facility] Adenocarcinoma of stomach (Primary Dx) 06/15/2024 Orders Only [facility] [address] [place] [address], [facility] [place] [address] Gillian Gomez PA-C 06/15/2024 Travel 06/15/2024 Telephone [facility] - Gastroenterology, Hepatology & Nutrition [address] [place] [address], 7th [place] [address] Arnaldo Araujo PA-C 06/15/2024 Multidisciplinary Visit [facility] [address] [place] [address], 7th [place] [address] Lakeshia Pablo PA 06/15/2024 Orders Only Gastrointestinal [address], [facility] Floor [place] [address] Marianela Hutchinson MD Adenocarcinoma of stomach (Primary Dx) 06/12/2024 Prep for Surgery [facility] - Gastroenterology, Hepatology & Nutrition [address] [place] [address] Main [facility], [facility] [place] [address] Arnaldo Araujo PA-C Adenocarcinoma of stomach (Primary Dx) 06/12/2024 Telephone [facility] - Surgical Oncology [facility] Main [facility], [facility] [place] [address] Mary Kay Santamaria APRN 06/12/2024 Orders Only [facility] - Surgical Oncology [facility] Main [facility], 7th [place] [address] Santamaria, Mary Kay Neva, DIE BAKER Adenocarcinoma of stomach (Primary Dx) 06/10/2024 Orders Only [facility] - Surgical Oncology [address] [place] [address], 7th [place] [address] Mary Kay Santamaria APRN Adenocarcinoma of stomach (Primary Dx) 06/05/2024 Telephone [facility] - Gastroenterology, Hepatology & Nutrition [address] [place] [address], 7th [place] [address] Arnaldo Araujo PA-C 06/03/2024 5:30 PM LEAD FIRE PROTECTION ENGINEER Infusion Ambulatory Treatment [facility] - Blue [address] [facility], 8th [place] [address] Marianela Hutchinson MD Lewandowski, Teresa M, RN Adenocarcinoma of stomach (Primary Dx) 06/03/2024 Travel 06/02/2024 Telephone [facility] [address] [place] [address], 7th [place] [address] Mony Saavedra RN 06/01/2024 1:00 PM LEAD FIRE PROTECTION ENGINEER Infusion [facility] [address] [facility], Floor 6 [place] [address] Marianela Hutchinson MD Shaik, Anna Marie B RN Adenocarcinoma of stomach (Primary Dx); Iron deficiency anemia, not otherwise specified 06/01/2024 10:53 AM LEAD FIRE PROTECTION ENGINEER - 06/01/2024 11:59 PM LEAD FIRE PROTECTION ENGINEER Hospital Encounter Diagnostic Laboratory Center [address] [place] [address] Marianela Hutchinson MD Adenocarcinoma of stomach; Iron deficiency anemia, not otherwise specified Discharge Disposition: Home 06/01/2024 Orders Only [facility] [address] [place] [address], 7th [place] [address] Marianela Hutchinson MD 06/01/2024 Orders Only [facility] [address] [place] [address], 7th [place] [address] Radha Castellon, [facility] Adenocarcinoma of stomach (Primary Dx); Iron deficiency anemia, not otherwise specified 06/01/2024 Travel 06/01/2024 Orders Only [facility] - Ambulatory Treatment Center [address] [facility], Floor 6 [place] [address] Marianela Hutchinson MD Adenocarcinoma of stomach (Primary Dx) 05/26/2024 Telephone [facility] - Gastroenterology, Hepatology & Nutrition [address] [place] [address], 7th [place] [address] Arnaldo Araujo PA-C 05/22/2024 Telephone [facility] - Gastroenterology, Hepatology & Nutrition [address] [facility], 7th [place] [address] Arnaldo Araujo PA-C 05/22/2024 Orders Only [facility] - Gastroenterology, Hepatology & Nutrition [address] [place] [address], 7th [place] [address] Arnaldo Araujo PA-C Candidal esophagitis (Primary Dx) 05/20/2024 4:30 PM LEAD FIRE PROTECTION ENGINEER - 05/20/2024 11:59 PM LEAD FIRE PROTECTION ENGINEER Hospital Encounter Ambulatory Treatment Center - [address], 2nd Floor, [place] [address] Marianela Hutchinson MD Lewandowski, Teresa M, ARTURO Adenocarcinoma of stomach Discharge Disposition: Home 05/19/2024 12:44 PM LEAD FIRE PROTECTION ENGINEER Anesthesia Event Endoscopy Center [address] [place] [address], 5th Floor Elevator C [place] [id number] Maurice Ferrera MD Thomas, Ashly [facility] 05/19/2024 12:00 PM LEAD FIRE PROTECTION ENGINEER - 05/19/2024 1:10 PM LEAD FIRE PROTECTION ENGINEER Surgery Endoscopy Center [address] [place] [address], 5th Floor Elevator C [place] [id number] Brandon Alcala MD UPPER GASTROINTESTINAL ENDOSCOPY OF ESOPHAGUS, STOMACH, OR DUODENUM ANDJ ADJACENT STRUCTURES, WITH ENDOSCOPIC ULTRASOUND EXAMINATION 05/19/2024 11:17 AM LEAD FIRE PROTECTION ENGINEER - 05/19/2024 2:49 PM LEAD FIRE PROTECTION ENGINEER Hospital Encounter Endoscopy Center [address] [place] [address], 5th [place] [address] Brandon Alcala MD Adenocarcinoma of stomach Discharge Disposition: Home 05/19/2024 Travel 05/18/2024 1:00 PM LEAD FIRE PROTECTION ENGINEER Infusion [facility] - Amb[facility] Treatment [facility] [address] [facility], Floor 6 [place] [address] Marianela Hutchinson MD Rupp, Alexa B RN Adenocarcinoma of stomach (Primary Dx) 05/18/2024 12:20 PM LEAD FIRE PROTECTION ENGINEER Follow[facility]Up [facility] [address] [place] [address], 7th [place] [address] Marianela Hutchinson MD Adenocarcinoma, NOS of stomach, NOS 05/18/2024 11:00 AM LEAD FIRE PROTECTION ENGINEER POEM Appointments Perioperative Evaluation and Management Center [address] [place] [address], 6th [place] [address] Marianela Hutchinson MD 05/18/2024 10:32 AM LEAD FIRE PROTECTION ENGINEER - 05/18/2024 11:59 PM LEAD FIRE PROTECTION ENGINEER Hospital Encounter Diagnostic Laboratory Center [address] [place] [address] Gillian Gomez PA-C Adenocarcinoma, NOS of stomach, NOS Discharge Disposition: Home 05/18/2024 Orders Only [facility] [address] [place] [address], 7th [place] [address] Marianela Hutchinson MD Adenocarcinoma of stomach (Primary Dx) 05/18/2024 Orders Only [facility] [address] [place] [address], 7th [place] [address] Radha Castellon [facility] Adenocarcinoma of stomach (Primary Dx); Iron deficiency anemia, not otherwise specified 05/18/2024 Travel 05/15/2024 11:59 PM LEAD FIRE PROTECTION ENGINEER Anesthesia Event Perioperative Evaluation [facility] Management Center [address] [place] [address], 6th [place] [address] Eri Lynne, ARTURO 05/06/2024 5:30 PM LEAD FIRE PROTECTION ENGINEER Infusion [facility] - Blue [address] [facility], 8th [place] [address] Marianela Hutchinson MD Pagara, Leni S RN Adenocarcinoma of stomach 05/04/2024 12:36 PM LEAD FIRE PROTECTION ENGINEER - 05/04/2024 11:59 PM LEAD FIRE PROTECTION ENGINEER Hospital Encounter Ambulatory Treatment Center - Main Building [address] [place] [address], 2nd Floor, Elevator B Elevator C [place] [id number] Gillian Gomez PA-C Jo, Edifia Sungsoon, RN Adenocarcinoma of stomach (Primary Dx) Discharge Disposition: Home 05/04/2024 12:20 PM LEAD FIRE PROTECTION ENGINEER Follow[facility]Up [facility] [address] [place] [address], 7th [place] [address] Marianela Hutchinson MD Adenocarcinoma, NOS of stomach, NOS 05/04/2024 11:10 AM LEAD FIRE PROTECTION ENGINEER - 05/04/2024 12:35 PM LEAD FIRE PROTECTION ENGINEER Hospital Encounter Diagnostic Laboratory Center [address] [place] [address] Gillian Gomez PA-C Adenocarcinoma, NOS of stomach, NOS; Adenocarcinoma of stomach Discharge Disposition: Home 05/04/2024 Orders Only [facility] [address] [place] [address], 7th Floor Elevator A [place] [id number] Marianela Hutchinson MD Adenocarcinoma of stomach (Primary Dx) 05/04/2024 Orders Only [facility] [address] [place] [address], [facility] [place] [address] Radha Castellon Werner Adenocarcinoma of stomach (Primary Dx) 05/04/2024 Travel 04/30/2024 Orders Only [facility] - Surgical Oncology [address] [place] [address], 7th [place] [address] Mary Kay Santamaria APRN Adenocarcinoma of stomach (Primary Dx); Paroxysmal atrial fibrillation; Hyperlipidemia, not otherwise specified; Type 2 diabetes mellitus with hyperglycemia 04/27/2024 8:05 PM LEAD FIRE PROTECTION ENGINEER Ancillary Procedure [facility] [address] [place] [address] Cancer 04/27/2024 8:00 PM LEAD FIRE PROTECTION ENGINEER Ancillary Procedure [facility] [address] [place] [address] Cancer 04/27/2024 Orders Only [facility] [address] [place] [address], [facility] [place] [address] Donnell Van Adenocarcinoma of stomach (Primary Dx) 04/24/2024 Documentation Vascular Access and Procedures Center [address] [facility], 8th [place] [address] Mary Kay Santamaria, DIE BAKER 04/24/2024 Orders Only [facility] - Surgical Oncology [address] [place], [place] [address]ator [place] [phone] Mary Kay Santamaria, DIE BAKER Adenocarcinoma, NOS of stomach, NOS (Primary Dx) 04/24/2024 Telephone [facility] - Surgical Oncology [address] [place], [place] [id number] Mary Kay Santamaria, DIE BAKER 04/22/2024 Lab Requisition [facility] Sincere Moralez MD Jain, Shilpa, MD 04/21/2024 Orders Only [facility] Center [address] [place], [place] [address]ator [place] [phone] Gillian Gomez PA-C Adenocarcinoma, NOS of stomach, NOS (Primary Dx); Adenocarcinoma of stomach 04/16/2024 Telephone [facility]ARIQAL[facility] PHYSICIAN [address] [place] [address] 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, dredge pump operator Call 04/15/2024 10:09 AM LEAD FIRE PROTECTION ENGINEER Anesthesia Event MAIN OR [address] [place] [address] Meenakshi Crowe MD Miller, Wendy, SURVEY DIRECTOR 04/15/2024 10:05 AM LEAD FIRE PROTECTION ENGINEER - 04/15/2024 1:25 PM LEAD FIRE PROTECTION ENGINEER Surgery MAIN OR [address] [place], [place] [id number] John Fong MD ROBOTIC ASSISTED SURGICAL LAPAROSCOPY 04/15/2024 7:32 AM LEAD FIRE PROTECTION ENGINEER - 04/15/2024 11:50 PM LEAD FIRE PROTECTION ENGINEER Hospital Encounter MAIN OR [address] [place] [address] John Fong MD Adenocarcinoma of stomach (Primary Dx) Discharge Disposition: Home 04/15/2024 Travel 04/14/2024 2:30 PM LEAD FIRE PROTECTION ENGINEER Consult [facility] [address] [place] [address], 7th [place] [address] Gillian Gomez PA-C Badgwell, Brian, MD Adenocarcinoma, NOS of stomach, NOS (Primary Dx); Nausea 04/14/2024 Documentation [facility] [address] [place] [address], 7th [place] [address] John Fong MD 04/13/2024 3:00 PM LEAD FIRE PROTECTION ENGINEER [facility] [address] [place] [address], [facility] [place] [address] Marianela Hutchinson MD Mass of stomach (Primary Dx) 04/13/2024 2:02 PM LEAD FIRE PROTECTION ENGINEER Anesthesia Event [facility] [address] [place] [address], 6th [place] [address] Curtis Moctezuma PA 04/12/2024 8:22 AM LEAD FIRE PROTECTION ENGINEER - 04/12/2024 3:42 PM LEAD FIRE PROTECTION ENGINEER Hospital Encounter MAIN P06B [address] [place] [address] Nghia Zhu MD Elsayem, Ahmed, MD Nausea and vomiting (Primary Dx); Gastric cancer; Pancreatitis Discharge Disposition: Left Against Medical Advice 04/12/2024 Travel 04/09/2024 8:25 PM LEAD FIRE PROTECTION ENGINEER Ancillary Procedure Image Library [address] [place] [address] Margoth Souza MD Cancer 04/09/2024 8:20 PM LEAD FIRE PROTECTION ENGINEER Ancillary Procedure [facility] [address] [place] [address] Margoth Souza MD Cancer 04/09/2024 8:15 PM LEAD FIRE PROTECTION ENGINEER Ancillary Procedure [facility] [address] [place] [address] Margoth Souza MD Cancer 04/09/2024 8:10 PM LEAD FIRE PROTECTION ENGINEER Ancillary Procedure [facility] [address] [place] [address] Margoth Souza MD Cancer 04/09/2024 8:05 PM LEAD FIRE PROTECTION ENGINEER Ancillary Procedure Image [facility] [address] [place] [address] Margoth Souza MD Cancer 04/09/2024 8:00 PM LEAD FIRE PROTECTION ENGINEER Ancillary Procedure Image [facility] [address] [place] [address] Margoth Souza MD Cancer 04/09/2024 10:48 AM LEAD FIRE PROTECTION ENGINEER - 04/09/2024 11:59 PM LEAD FIRE PROTECTION ENGINEER Hospital Encounter [facility] [address] [place] [address] Ceci Nicholson MD Encounter for other preprocedural examination; Atherosclerosis of coronary 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, not otherwise specified; 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 Discharge Disposition: Home 04/09/2024 10:00 AM LEAD FIRE PROTECTION ENGINEER POEM Appointments [facility] [address] [place] [address], 6th [place] [address] Margoth Souza MD 04/09/2024 9:56 AM LEAD FIRE PROTECTION ENGINEER - 04/09/2024 10:47 AM LEAD FIRE PROTECTION ENGINEER Hospital Encounter [facility] [address] [place] [address], 2nd [place] [address] Ceci Nicholson MD Adenocarcinoma of stomach; Hyperlipidemia, not otherwise specified; Encounter for other preprocedural examination; Atherosclerosis of coronary 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, not otherwise specified Discharge Disposition: Home 04/09/2024 9:00 AM LEAD FIRE PROTECTION ENGINEER Consult [facility] Management [address] [place] [address], 6th [place] [address] Mary Kay Santamaria APRN Misoi, Mercy W, MD Encounter for other preprocedural examination (Primary Dx); Adenocarcinoma of stomach; Paroxysmal atrial fibrillation; Hypertension; 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; Hyperlipidemia, not otherwise specified; Current use of 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; Atherosclerosis of coronary 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, not otherwise specified 04/09/2024 Travel 04/08/2024 Prep for Surgery [facility] [address] [place] [address], [address] [place] [address] [place] [address] Mary Kay Santamaria APRN Adenocarcinoma of stomach (Primary Dx); Mass of stomach 04/08/2024 Orders Only [facility] [address] [place] [address], [address] [place] [address] [place] [address] Mary Kay Santamaria APRN Adenocarcinoma of stomach (Primary Dx); Paroxysmal atrial fibrillation; Hypertension; 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 [place] [address] Roberto Poole PA 04/06/2024 [facility] [address], [facility] [place] [address] Roberto Poole PA Mass of stomach (Primary Dx) 04/06/2024 Orders Only [facility] [address] [place] [address], [facility] [place] [address] Roberto Poole PA Mass of stomach (Primary Dx) 04/06/2024 Telephone [facility] [address] [place] [address], [facility] [place] [address] Anais Meng RN 02/11/2024 Travel 02/10/2024 3:30 PM CDT Telemedicine [facility] [address] [place] [address], 7th [place] [address] Margoth Souza MD Renal mass (Primary Dx) 01/02/2024 7:15 AM CDT Ancillary Procedure MAIN OR [address] [place] [address] Margoth Souza MD 01/02/2024 7:00 AM CDT - 01/02/2024 11:40 AM CDT Surgery MAIN OR [address] [place] [address] Margoth Souza MD ROBOTIC ASSISTED PARTIAL NEPHRECTOMY 01/02/2024 6:58 AM CDT Anesthesia Event MAIN OR [address] [place] [address] Alonzo Liu MD Majekodumi, Jessy, PAXTON 01/02/2024 5:04 AM CDT - 01/03/2024 5:05 PM CDT Hospital Encounter MAIN P09B [address] [place] [address] Margoth Souza MD Renal mass (Primary Dx) Discharge Disposition: Home 01/02/2024 Travel 12/31/2023 1:04 PM CDT - 12/31/2023 11:59 PM CDT Hospital Encounter CT Imaging and Diagnostic Imaging [address] [place] [address], 3rd [place] [address] Margoth Souza MD Renal mass Discharge Disposition: Home 12/31/2023 8:00 AM CDT Consult Endocrine Center [address] [place] [address], 6th [place] [address] Nakia Kirby APRN Khan, Sonya, MD Type 2 diabetes mellitus with hyperglycemia [E11.65] (Primary Dx); Pre-surgery evaluation 12/30/2023 9:30 AM CDT Office Visit [facility] [address] [place] [address], 7th [place] [address] Margoth Souza MD Renal mass 12/30/2023 Travel 12/30/2023 Telephone [facility] [address] [place] [address], 6th [place] [address] Winnie Archibald, RN Appointment (Cannot get internet-phone broke) 12/30/2023 Orders Only [facility] Cancer Center [address] [facility], 7th [place] [address] Roberto Poole PA Renal mass (Primary Dx) 12/29/2023 Orders Only Endocrine Center [address] [place] [address], [facility] [place] [address] Veronica Del Castillo APRN 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); Endocrine/metabolic screening; Renal cell carcinoma <Left side> 12/25/2023 8:36 AM CDT Anesthesia Event [facility] [address] [place], [place] [address] [address] Lien Antonio RN 12/23/2023 10:30 AM CDT Consult Perioperative Evaluation and Management [address] [place] [address] [place] [address] Margoth Souza MD Oh, Jeong, MD Encounter for other preprocedural examination (Primary Dx); Renal mass; Hyperlipidemia, not otherwise specified 12/23/2023 9:00 AM CDT POEM Appointments [facility] [address] [place] [address], [address] [place], [place] [address] [address] Margoth Souza MD Pre-surgery evaluation (Primary Dx) 12/23/2023 8:45 AM CDT - 12/23/2023 11:59 PM CDT Hospital Encounter [facility] [address] [place] [address] Margoth Souza MD Renal mass Discharge Disposition: Home 12/23/2023 Travel 12/09/2023 9:33 AM CDT - 12/09/2023 11:59 PM CDT Hospital Encounter [facility] [address] [place] [address] Veronica Del Castillo APRN 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; Endocrine/metabolic screening Discharge Disposition: Home 12/09/2023 8:30 AM CDT Consult Endocrine Center [address] [facility], 6th [place] [address] Mary Jane Cassidy MD 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); Endocrine/metabolic screening; Renal cell carcinoma <Left side> 12/09/2023 Travel 10/23/2023 Orders Only [facility] [address] [place] [address], 7th [place] [address] Roberto Poole PA Renal mass (Primary Dx); Adrenal mass 10/03/2023 9:30 AM CDT - 10/03/2023 11:59 PM CDT Hospital Encounter Interventional Radiology [address] [place] [address], 4th [place] [address] Shazia Arriaza MD McRae, Stephen, MD Renal mass Discharge Disposition: Home 10/03/2023 8:30 AM CDT - 10/03/2023 9:29 AM CDT Hospital Encounter [facility] [address] [place] [address] Margoth Souza MD Renal mass Discharge Disposition: Home 10/03/2023 Travel 10/02/2023 8:24 AM CDT - 10/02/2023 11:59 PM CDT Hospital Encounter Interventional Radiology [address] [place] [address], 4th [place] [address] Margoth Souza MD Ho, Abilio Horn PA-C Encounter for other preprocedural examination (Primary Dx); Renal mass; 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 Discharge Disposition: Home 10/02/2023 Travel 09/24/2023 7:46 AM CDT - 09/24/2023 11:59 PM CDT Hospital Encounter [facility] [address] [place] [address] Roberto oPole PA Adrenal mass Discharge Disposition: Home 09/20/2023 Orders Only [facility] [address] [place] [address], 7th [place] [address] Roberto Poole PA Adrenal mass (Primary Dx) 09/19/2023 11:45 AM CDT Ancillary Procedure X-Ray Outpatient Center [address] [place] [address], 7th [place] [address] Shazia Arriaza MD Renal mass 09/19/2023 9:20 AM CDT - 09/19/2023 11:59 PM CDT Hospital Encounter [facility] [address] [place] [address] Shazia Arriaza MD Adenoma, NOS of adrenal gland, NOS <Left> Discharge Disposition: Home 09/19/2023 Orders Only Interventional Radiology [address] [place] [address], 4th [place] [address] Abilio Ng PA-C Renal mass (Primary Dx) 09/19/2023 Travel 09/19/2023 Telephone [facility] [address] [place] [address] Barbara Rees MA 09/16/2023 4:00 PM CDT - 09/16/2023 11:59 PM CDT Hospital Encounter [facility] [address] [place] [address] Shazia Arriaza MD Renal mass; Adrenal mass Discharge Disposition: Home 09/16/2023 2:00 PM CDT Office Visit [facility] [address] [place] [address], 7th [place] [address] Margoth Souza MD Renal mass (Primary Dx); Adrenal mass; Adenoma, NOS of adrenal gland, NOS <Left>; 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 AL FLUORO CENTRAL VENOUS ACC ESS DEV PLACEMENT 04/15/2024 Neck/N/A Procedure: FLUORO GUIDANCE FOR CENTRAL VENOUS ACCESS DEVICE PLACEMENT, REPLACEMENT, OR REMOVAL; Surgeon: John Fong MD; Location: MAIN OR; Service: SURG ONC - GASTRIC/HIPEC Medical devices from this surgery are in the Medical Devices section. AL US VASC ACCESS SITS VSL P ATENCY NDL ENTRY 04/15/2024 N/A Procedure: US GUIDANCE WITH EVAL OF POTENTIAL ACCESS SITES, REALTIME US VISUALIZATION OF VASC NEEDLE ENTRY; Surgeon: John Fong MD; Location: MAIN OR; Service: SURG ONC - GASTRIC/HIPEC Medical devices from this surgery are in the Medical Devices section. AL INSJ TUNNELED CTR VAD W/S UBQ PORT AGE 5 YR/> 04/15/2024 Neck/N/A Procedure: PORT-A-CATH PLACEMENT; Surgeon: John Fong MD; Location: MAIN OR; Service: SURG ONC - GASTRIC/HIPEC Medical devices from this surgery are in the Medical Devices section. AL ESOPHAGOGASTRODUODENOSCOP Y US SCOPE W/ADJ STRXRS 05/19/2024 Esophagus/N/A Procedure: UPPER GASTROINTESTINAL ENDOSCOPY OF ESOPHAGUS, STOMACH, OR DUODENUM ANDJ ADJACENT STRUCTURES, WITH ENDOSCOPIC ULTRASOUND EXAMINATION; Surgeon: Brandon Alcala MD; Location: MAIN ENDOSCOPY; Service: GASTROENTEROLOGY AL ESOPHAGOGASTRODUODENOSCOP Y TRANSORAL DIAGNOSTIC 06/30/2024 Esophagus/N/A Procedure: [...] locally 12/03/2023-12/06/2023 of note, pt was on [facility] Peripheral vascular disease 2023 Left LE [...] insufficiency. 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 Gender Identity Not on file Sexual Orientation Not on file Occupation Industry Job Start Date Job End Date retired from [employer] Not on file N ot on file Not on file Travel History Travel Start Travel End [place] 04/12/2024 04/12/2024 Obstetrics History Last Filed Vital Signs Vital Sign Reading Time Taken Comments Blood Pressure 178/77 09/07/2024 4:56 PM CDT Pulse 76 09/07/2024 4:56 PM CDT Temperature 36.9 °C (98.4 °F) 09/07/2024 4:56 PM CD T Respiratory Rate 18 09/07/2024 3:19 PM CDT Oxygen Saturation 96% 09/07/2024 4:56 PM CDT Inhaled Oxygen Concentration - - Weight 85.2 kg (187 lb 13.3 oz) 09/07/2024 3:19 PM CDT Height 188 cm (6' 2") 05/19/2024 11:53 AM LEAD FIRE PROTECTION ENGINEER Body Mass Index 24.12 05/19/2024 11:53 AM LEAD FIRE PROTECTION ENGINEER Plan of Treatment Upcoming Encounters Date Type Department Care Team (Late st Contact Info) Description 09/09/2024 6:30 PM CDT Infusion Ambulatory Treatment [facility] - [address], 8th [place] [address] Marianela Hutchinson MD [address] [place] [phone] [email or web address] 09/21/2024 1:45 PM CDT Appointment Diagnostic [facility] [address] [place] [address] Marianela Hutchinson MD [address] [place] [phone] [email or web address] 09/21/2024 2:20 PM CDT Follow-Up [facility] [address] [place] [address], 7th [place] [address] Marianela Hutchinson MD [address] [place] [phone] [email or web address] 09/21/2024 4:30 PM CDT Infusion Ambulatory Treatment [facility] - [address], 8th [place] [address] Marianela Hutchinson MD [address] [place] [phone] [email or web address] 09/23/2024 3:45 PM CDT Infusion [facility] [address] [facility], Floor 6 [place] [address] Marianela Hutchinson MD [address] [place] [phone] [email or web address] 10/05/2024 11:45 AM CDT Appointment [facility] [address] [place] [address] Marianela Hutchinson MD [address] [place] [phone] [email or web address] 10/05/2024 1:45 PM CDT Infusion [facility] - [facility] [address] [place] [address], 8th [place] [address] Marianela Hutchinson MD [address] [place] [phone] [email or web address] 10/19/2024 9:30 AM CDT Infusion [facility] - [facility] [address] [place] [address], 8th [place] [address] Marianela Hutchinson MD [address] [place] [phone] [email or web address] 11/16/2024 9:45 AM CDT Appointment [facility] [address] [place] [address] Marianela Hutchinson MD [address] [place] [phone] [email or web address] 02/01/2025 11:30 AM CDT Appointment [facility] [address] [place] [address] YouMónica LeahElaine, DIE BAKER [address] [place] [address] [email or web address] 02/01/2025 11:[address] Imaging and Diagnostic Imaging [address] [place] [address], 3rd [place] [address] AbundioVeronica, DIE BAKER [address] [place] [address] [email or web address] 02/01/2025 3:00 PM CDT Follow-Up Endocrine Center [address] [place] [address], 6th [place] [address] Mary Jane Cassidy MD [address] [place] [phone] [email or web address] 02/05/2025 10:45 AM CDT Lab [facility] [address] [place] [address], 7th [place] [address] Margoth Souza MD [address] [place] [phone] [email or web address] 02/05/2025 11:15 AM CDT Ancillary Procedure X-Ray Outpatient Center [address] [place] [address], 7th [place] [address] Margoth Souza MD [address] [place] [phone] [email or web address] 02/05/2025 11:55 AM CDT Ancillary Procedure CT Imaging [address] [place] [address], [facility] [place] [address] Margoth Souza MD [address] [place] [address] [email or web address] 02/08/2025 2:30 PM CDT Telemedicine Genitourinary Cancer Center [address] [facility], 7th [place] [address] Margoth Souza MD [address] [place] [address] [email or web address] Health Maintenance Due Date Last Done Comments COVID-19 Vaccine (#1) 01/09/1969 Pneumococcal Vaccine: 50+ Years (1 of 2 - PCV) 983 01/09/1975 Influenza Vaccine (#1) 2024 08/04/2018 Medical Devices Implanted Type Area Non Profit Director Device Identifier Shelf Expiration Date Model / Serial / Lot [employer]wr[employer], [employer] S[employer] 6fr - [id number] Implanted:Qty: 1 on 04/15/2024 by John Fong MD at [facility] Implant Right: Neck [employer] 12/17/2024 [id number] / / [id number] Procedures Procedure Name Priority Date/Time Associated Diagnosis Comments .CBC Routine 09/07/2024 10:49 AM CDT Adenocarcinoma of stomach CARCINOEMBRYONIC ANTIGEN Routine 025 10:49 AM CDT Adenocarcinoma of stomach LACTATE DEHYDROGENASE Routine 09/07/2024 10:49 AM CDT Adenocarcinoma of stomach PHOSPHORUS LEVEL Routine 09/07/2024 10:49 AM CDT Adenocarcinoma of stomach MAGNESIUM LEVEL Routine 09/07/2024 10:49 AM CDT Adenocarcinoma of stomach COMPREHENSIVE METABOLIC PANEL Routine 10:49 AM CDT Adenocarcinoma of stomach COMPLETE BLOOD COUNT W/ DIFFERENTIAL Routine 09/07/2024 10:49 AM CDT Adenocarcinoma of stomach .CBC Routine 08/24/2024 11:47 AM CDT Adenocarcinoma of stomach CARCINOEMBRYONIC ANTIGEN Routine 025 11:47 AM CDT Adenocarcinoma of stomach LACTATE DEHYDROGENASE Routine 08/24/2024 11:47 AM CDT Adenocarcinoma of stomach PHOSPHORUS LEVEL Routine 08/24/2024 11:47 AM CDT Adenocarcinoma of stomach MAGNESIUM LEVEL Routine 08/24/2024 11:47 AM CDT Adenocarcinoma of stomach COMPREHENSIVE METABOLIC PANEL Routine 11:47 AM CDT Adenocarcinoma of stomach COMPLETE BLOOD COUNT W/ DIFFERENTIAL Routine 08/24/2024 11:47 AM CDT Adenocarcinoma of stomach CT CHEST ABDOMEN PELVIS W CONTRAST Routine 07/15/2024 4:38 PM LEAD FIRE PROTECTION ENGINEER Adenocarcinoma of stomach .CBC Routine 07/15/2024 10:01 AM LEAD FIRE PROTECTION ENGINEER Adenocarcinoma of stomach CARCINOEMBRYONIC ANTIGEN Routine 025 10:01 AM LEAD FIRE PROTECTION ENGINEER Adenocarcinoma of stomach LACTATE DEHYDROGENASE Routine 07/15/2024 10:01 AM LEAD FIRE PROTECTION ENGINEER Adenocarcinoma of stomach PHOSPHORUS LEVEL Routine 07/15/2024 10:01 AM LEAD FIRE PROTECTION ENGINEER Adenocarcinoma of stomach MAGNESIUM LEVEL Routine 07/15/2024 10:01 AM LEAD FIRE PROTECTION ENGINEER Adenocarcinoma of stomach COMPREHENSIVE METABOLIC PANEL Routine 10:01 AM LEAD FIRE PROTECTION ENGINEER Adenocarcinoma of stomach COMPLETE BLOOD COUNT W/ DIFFERENTIAL Routine 07/15/2024 10:01 AM LEAD FIRE PROTECTION ENGINEER Adenocarcinoma of stomach RESEARCH PROTOCOL [id number] Routine 07/15 10:01 AM LEAD FIRE PROTECTION ENGINEER Adenocarcinoma of stomach MDA AP IHC WORKUP Routine 07/07/2024 12:29 PM LEAD FIRE PROTECTION ENGINEER Adenocarcinoma of stomach POC GLUCOSE SCREEN Routine 06/30/2024 1:23 PM LEAD FIRE PROTECTION ENGINEER PATHOLOGY BIOPSY INTERPRETATION Routine 06/30/2024 12:51 PM LEAD FIRE PROTECTION ENGINEER Adenocarcinoma of stomach AL ESOPHAGOGASTRODUODENOSCOP Y TRANSORAL DIAGNOSTIC 06/30/2024 12:15 PM LEAD FIRE PROTECTION ENGINEER Adenocarcinoma of stomach Case Notes 06/12 per gene to schedule on 06/30, per tor to schedule 06/30 thru lunch last AM case, slot held to offer. LVM and sent mychart to schedule-DC Special Needs SEWING MACHINE BOBBIN WINDERARTURO PEREZ COMPLETE 06/18.SEWING MACHINE BOBBIN WINDERARTURO HERNANDEZ FOR DAUGHTER WITH DETAILED INSTRUCTIONS FOR PROCEDURE IN ADDITION TO HOLD ON PLAVIX FOR 5 DAYS.SEWING MACHINE BOBBIN WINDERARTURO HERNANDEZ 1ST CALL 06/16. POC CHEM 8 Routine 06/30/2024 11:10 AM LEAD FIRE PROTECTION ENGINEER POC GLUCOSE SCREEN Routine 06/30/2024 10:52 AM LEAD FIRE PROTECTION ENGINEER POC CHEM 8 Routine 06/29/2024 9:54 AM LEAD FIRE PROTECTION ENGINEER EKG, 12-LEAD (SCHEDULED) Routine 06/29/2024 Adenocarcinoma of stomach PETCT F18 FDG (FLUORODEOXYGLUCOSE) WITH CONTRAST Routine 06/20/2024 12:42 PM LEAD FIRE PROTECTION ENGINEER Adenocarcinoma, NOS of stomach, NOS Malignant neoplasm of overlapping sites of esophagus POC GLUCOSE SCREEN Routine 06/20/2024 11:06 AM LEAD FIRE PROTECTION ENGINEER .CBC Routine 06/20/2024 10:35 AM LEAD FIRE PROTECTION ENGINEER Adenocarcinoma, NOS of stomach, NOS CARCINOEMBRYONIC ANTIGEN Routine 025 10:35 AM LEAD FIRE PROTECTION ENGINEER Adenocarcinoma, NOS of stomach, NOS LACTATE DEHYDROGENASE Routine 06/20/2024 10:35 AM LEAD FIRE PROTECTION ENGINEER Adenocarcinoma, NOS of stomach, NOS PHOSPHORUS LEVEL Routine 06/20/2024 10:35 AM LEAD FIRE PROTECTION ENGINEER Adenocarcinoma, NOS of stomach, NOS MAGNESIUM LEVEL Routine 06/20/2024 10:35 AM LEAD FIRE PROTECTION ENGINEER Adenocarcinoma, NOS of stomach, NOS COMPREHENSIVE METABOLIC PANEL Routine 10:35 AM LEAD FIRE PROTECTION ENGINEER Adenocarcinoma, NOS of stomach, NOS COMPLETE BLOOD COUNT W/ DIFFERENTIAL Routine 06/20/2024 10:35 AM LEAD FIRE PROTECTION ENGINEER Adenocarcinoma, NOS of stomach, NOS .CBC Routine 06/15/2024 10:39 AM LEAD FIRE PROTECTION ENGINEER Adenocarcinoma of stomach CARCINOEMBRYONIC ANTIGEN Routine 025 10:39 AM LEAD FIRE PROTECTION ENGINEER Adenocarcinoma, NOS of stomach, NOS LACTATE DEHYDROGENASE Routine 06/15/2024 10:39 AM LEAD FIRE PROTECTION ENGINEER Adenocarcinoma, NOS of stomach, NOS PHOSPHORUS LEVEL Routine 06/15/2024 10:39 AM LEAD FIRE PROTECTION ENGINEER Adenocarcinoma, NOS of stomach, NOS MAGNESIUM LEVEL Routine 06/15/2024 10:39 AM LEAD FIRE PROTECTION ENGINEER Adenocarcinoma, NOS of stomach, NOS COMPREHENSIVE METABOLIC PANEL Routine 10:39 AM LEAD FIRE PROTECTION ENGINEER Adenocarcinoma of stomach COMPLETE BLOOD COUNT W/ DIFFERENTIAL Routine 06/15/2024 10:39 AM LEAD FIRE PROTECTION ENGINEER Adenocarcinoma of stomach .CBC Routine 06/01/2024 11:10 AM LEAD FIRE PROTECTION ENGINEER Adenocarcinoma of stomach TRANSFERRIN Routine 06/01/2024 11:10 AM LEAD FIRE PROTECTION ENGINEER Iron deficiency anemia, not otherwise specified Adenocarcinoma of stomach FERRITIN Routine 06/01/2024 11:10 AM LEAD FIRE PROTECTION ENGINEER Iron deficiency anemia, not otherwise specified Adenocarcinoma of stomach IRON LEVEL Routine 06/01/2024 11:10 AM LEAD FIRE PROTECTION ENGINEER Iron deficiency anemia, not otherwise specified Adenocarcinoma of stomach COMPREHENSIVE METABOLIC PANEL Routine 11:10 AM LEAD FIRE PROTECTION ENGINEER Adenocarcinoma of stomach COMPLETE BLOOD COUNT W/ DIFFERENTIAL Routine 06/01/2024 11:10 AM LEAD FIRE PROTECTION ENGINEER Adenocarcinoma of stomach POC GLUCOSE SCREEN Routine 05/19/2024 1:52 PM LEAD FIRE PROTECTION ENGINEER PATHOLOGY BIOPSY INTERPRETATION Routine 05/19/2024 1:10 PM LEAD FIRE PROTECTION ENGINEER Adenocarcinoma of stomach AL ESOPHAGOGASTRODUODENOSCOP Y US SCOPE W/ADJ STRXRS 05/19/2024 12:34 PM LEAD FIRE PROTECTION ENGINEER Adenocarcinoma of stomach Case Notes 04/24- WAITING FOR TRIAGE TO [place] FOR 05/01- Special Needs SEWING MACHINE BOBBIN WINDER [place] Call Completed 04/30/24ad laproscopy on 04/15/24 POC GLUCOSE SCREEN Routine 05/19/2024 12:21 PM LEAD FIRE PROTECTION ENGINEER .CBC Routine 05/18/2024 10:55 AM LEAD FIRE PROTECTION ENGINEER Adenocarcinoma, NOS of stomach, NOS CARCINOEMBRYONIC ANTIGEN Routine 024 10:55 AM LEAD FIRE PROTECTION ENGINEER Adenocarcinoma, NOS of stomach, NOS LACTATE DEHYDROGENASE Routine 05/18/2024 10:55 AM LEAD FIRE PROTECTION ENGINEER Adenocarcinoma, NOS of stomach, NOS PHOSPHORUS LEVEL Routine 05/18/2024 10:55 AM LEAD FIRE PROTECTION ENGINEER Adenocarcinoma, NOS of stomach, NOS MAGNESIUM LEVEL Routine 05/18/2024 10:55 AM LEAD FIRE PROTECTION ENGINEER Adenocarcinoma, NOS of stomach, NOS COMPREHENSIVE METABOLIC PANEL Routine 10:55 AM LEAD FIRE PROTECTION ENGINEER Adenocarcinoma, NOS of stomach, NOS COMPLETE BLOOD COUNT W/ DIFFERENTIAL Routine 05/18/2024 10:55 AM LEAD FIRE PROTECTION ENGINEER Adenocarcinoma, NOS of stomach, NOS .CBC Routine 05/04/2024 11:34 AM LEAD FIRE PROTECTION ENGINEER Adenocarcinoma, NOS of stomach, NOS RESEARCH PROTOCOL [id number] Routine 05/04 11:34 AM LEAD FIRE PROTECTION ENGINEER Adenocarcinoma of stomach CARCINOEMBRYONIC ANTIGEN Routine 024 11:34 AM LEAD FIRE PROTECTION ENGINEER Adenocarcinoma, NOS of stomach, NOS LACTATE DEHYDROGENASE Routine 05/04/2024 11:34 AM LEAD FIRE PROTECTION ENGINEER Adenocarcinoma, NOS of stomach, NOS PHOSPHORUS LEVEL Routine 05/04/2024 11:34 AM LEAD FIRE PROTECTION ENGINEER Adenocarcinoma, NOS of stomach, NOS MAGNESIUM LEVEL Routine 05/04/2024 11:34 AM LEAD FIRE PROTECTION ENGINEER Adenocarcinoma, NOS of stomach, NOS COMPREHENSIVE METABOLIC PANEL Routine 11:34 AM LEAD FIRE PROTECTION ENGINEER Adenocarcinoma, NOS of stomach, NOS COMPLETE BLOOD COUNT W/ DIFFERENTIAL Routine 05/04/2024 11:34 AM LEAD FIRE PROTECTION ENGINEER Adenocarcinoma, NOS of stomach, NOS VERIFY CATHETER TIP PLACEMENT Routine 3:50 PM LEAD FIRE PROTECTION ENGINEER Adenocarcinoma of stomach POC GLUCOSE SCREEN Routine 04/15/2024 3:21 PM LEAD FIRE PROTECTION ENGINEER XR CHEST 1 VW PORTABLE Routine 2:45 PM LEAD FIRE PROTECTION ENGINEER POC GLUCOSE SCREEN Routine 04/15/2024 1:05 PM LEAD FIRE PROTECTION ENGINEER POC GLUCOSE SCREEN Routine 04/15/2024 12:52 PM LEAD FIRE PROTECTION ENGINEER CYTOLOGY NON-TRANSPORTATION AIDE INTERPRETATION Routine 04/15/2024 12:33 PM LEAD FIRE PROTECTION ENGINEER Adenocarcinoma of stomach PATHOLOGY SURGICAL INTERPRETATION Routine 04/15/2024 12:13 PM LEAD FIRE PROTECTION ENGINEER Adenocarcinoma of stomach FL CENTRAL VENOUS PLACE EXCHANGE Routine 04/15/2024 11:40 AM LEAD FIRE PROTECTION ENGINEER Adenocarcinoma of stomach POC GLUCOSE SCREEN Routine 04/15/2024 9:22 AM LEAD FIRE PROTECTION ENGINEER AL INSJ TUNNELED CTR VAD W/SUBQ PORT AGE 5 YR/> 04/15/2024 9:16 AM LEAD FIRE PROTECTION ENGINEER Adenocarcinoma of stomach Special Needs MTL@0800 AL US VASC ACCESS SITS VSL PATENCY NDL ENTRY 04/15/2024 9:16 AM LEAD FIRE PROTECTION ENGINEER Adenocarcinoma of stomach Special Needs MTL@0800 AL FLUORO CENTRAL VENOUS ACCESS DEV PLACEMENT 04/15/2024 9:16 AM LEAD FIRE PROTECTION ENGINEER Adenocarcinoma of stomach Special Needs MTL@0800 AL LAPS ABD PRTM&OMENTUM DX W/WO SPEC BR/WA SPX 04/15/2024 9:16 AM LEAD FIRE PROTECTION ENGINEER Adenocarcinoma of stomach Special Needs MTL@0800 CT ABDOMEN PELVIS W CONTRAST Routine 11:18 AM LEAD FIRE PROTECTION ENGINEER .CBC Routine 04/12/2024 9:04 AM LEAD FIRE PROTECTION ENGINEER LIPASE LEVEL Routine 04/12/2024 9:04 AM LEAD FIRE PROTECTION ENGINEER AMYLASE LEVEL Routine 04/12/2024 9:04 AM LEAD FIRE PROTECTION ENGINEER LACTATE DEHYDROGENASE Routine 04/12/2024 9:04 AM LEAD FIRE PROTECTION ENGINEER FRACTIONATED BILIRUBIN Routine 9:04 AM LEAD FIRE PROTECTION ENGINEER PHOSPHORUS LEVEL Routine 04/12/2024 9:04 AM LEAD FIRE PROTECTION ENGINEER MAGNESIUM LEVEL Routine 04/12/2024 9:04 AM LEAD FIRE PROTECTION ENGINEER COMPREHENSIVE METABOLIC PANEL Routine 9:04 AM LEAD FIRE PROTECTION ENGINEER COMPLETE BLOOD COUNT W/ DIFFERENTIAL Routine 04/12/2024 9:04 AM LEAD FIRE PROTECTION ENGINEER .CBC Routine 04/09/2024 11:09 AM LEAD FIRE PROTECTION ENGINEER Encounter for other preprocedural examination Atherosclerosis of coronary 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, not otherwise specified THYROID STIMULATING HORMONE Routine 03/21 11:09 AM LEAD FIRE PROTECTION ENGINEER Encounter for other preprocedural examination Atherosclerosis of coronary 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, not otherwise specified HEMOGLOBIN A1C Routine 04/09/2024 11:09 AM LEAD FIRE PROTECTION ENGINEER 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 Encounter for other preprocedural examination COMPREHENSIVE METABOLIC PANEL Routine 11:09 AM LEAD FIRE PROTECTION ENGINEER Encounter for other preprocedural examination Atherosclerosis of coronary 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, not otherwise specified COMPLETE BLOOD COUNT W/ DIFFERENTIAL Routine 04/09/2024 11:09 AM LEAD FIRE PROTECTION ENGINEER Encounter for other preprocedural examination Atherosclerosis of coronary 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, not otherwise specified EKG, 12-LEAD (SCHEDULED) Routine 04/09/2024 Adenocarcinoma of stomach Hyperlipidemia, not otherwise specified Encounter for other preprocedural examination Atherosclerosis of coronary 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, not otherwise specified PATHOLOGY OUTSIDE INTERPRETATION Routine 04/02/[address] ABDOMEN AND PELVIS Routine 2023 8:21 AM LEAD FIRE PROTECTION ENGINEER Cancer OSI CHEST Routine 03/23/2024 7:37 PM LEAD FIRE PROTECTION ENGINEER Cancer OSI CT CHEST ABDOMEN PELVIS Routine 08/2023 7:37 PM LEAD FIRE PROTECTION ENGINEER Cancer OSI CHEST Routine 03/23/2024 7:37 PM LEAD FIRE PROTECTION ENGINEER Cancer OSI CT CHEST Routine 03/22/2024 8:21 AM LEAD FIRE PROTECTION ENGINEER Cancer OSI CT ABDOMEN AND PELVIS Routine [...] 6:08 AM CDT Renal mass Special Needs [email or web address] [place], [place] [id number]:Please collect and send tissue to pathology window with appropriate label. AL LAPAROSCOPY SURG PARTIAL NEPHRECTOMY 01/02/2024 6:08 AM CDT Renal mass Special Needs [email or web address]:Please collect and send tissue to pathology window [...] 09/16/2023 4:23 PM CDT Renal mass after 09/10/2023 Results * (ABNORMAL) .CBC (09/07/2024 10:49 AM CDT) Only the most recent of13 resultswithin the time period is included. White Blood Cell 5.9 4.1 - 10.5 K/uL 09/07/2024 11:02 AM [facility] Red Blood Cell 3.90(L) 4.30 - 6.04 M/uL 09/07/2024 11:02 AM [facility] Hemoglobin 9.9(L) 13.3 - 17.4 g/dL 09/07/2024 11:02 AM [facility] Hematocrit 31.5(L) 39.5 - 51.8 % 09/07/2024 11:02 AM [facility] Mean Cell Volume 81(L) 82 - 99 fL 09/07/2024 11:02 AM [facility] Mean Cell Hemoglobin 25.4(L) 26.6 - 33.2 pg 09/07/2024 11:02 AM [facility] Mean Cell Hemoglobin Concentration 31.4 31.1 - 35.2 g/dL 09/07/2024 11:02 AM [facility] RDW-SD 41.9 37.5 - 49.7 fL 09/07/2024 11:02 AM [facility] Red Cell Diameter Width 14.4 11.6 - 15.5 % 09/07/2024 11:02 AM [facility] Platelet 241 160 - 397 K/uL 09/07/2024 11:02 AM [facility] Mean Platelet Volume 9.0(L) 9.1 - 12.6 fL 09/07/2024 11:02 AM [facility] INRBC 0.0 0.0 - 0.1 /100 WBC 09/07/2024 11:02 AM [facility] Comment: The INRBC (instrument NRBC) value reflects the enumeration of nucleated red blood cells contained in a 200uL sample of whole blood analyzed by the instrument. This value may differ from the NRBC value reported in a manual differential, which is based on a 100 cell differential. Neutrophil % 62.8 43.2 - 72.7 % 09/07/2024 11:02 AM [facility] Lymphocyte % 23.6 16.8 - 46.2 % 09/07/2024 11:02 AM [facility] Monocyte % 10.3 5.1 - 12.5 % 09/07/2024 11:02 AM [facility] Eosinophil % 2.2 0.4 - 6.3 % 09/07/2024 11:02 AM CDT [facility] Basophil % 0.9 0.2 - 1.4 % 09/07/2024 11:02 AM CDT [facility] IGRE % 0.2 0.1 - 1.5 % 09/07/2024 11:02 AM CDT [facility] Comment:The IGRE% includes M etamyelocytes, Myelocytes and Promyelocytes. Neutrophil Abs 3.68 1.95 - 7.25 K/uL 09/07/2024 11:02 AM CDT [facility] Lymphocyte Abs 1.38 1.01 - 3.24 K/uL 09/07/2024 11:02 AM CDT [facility] Monocyte Abs 0.60 0.24 - 0.85 K/uL 09/07/2024 11:02 AM CDT [facility] Eosinophil Abs 0.13 0.02 - 0.50 K/uL 09/07/2024 11:02 AM CDT [facility] Basophil Abs 0.05 0.02 - 0.09 K/uL 09/07/2024 11:02 AM CDT [facility] IG Abs 0.01 0.01 - 0.12 K/uL 09/07/2024 11:02 AM CDT [facility] Blood Peripheral blood specimen / Unknown Port / Unknown 09/07/2024 10:49 AM CDT 09/07/2024 10:50 AM CDT us Marianela Hutchinson MD LAB BLOOD ORDERABLES Final Re sult [facility] Unless otherwise noted, all lab tests performed by: Division of Pathology and Laboratory Medicine [address] [place] [id number] * (ABNORMAL) Comprehensive Metabolic Panel (09/07/2024 10:49 AM CDT) Only the most recent of12 resultswithin the time period is included. Bilirubin Total <0.3 0.0 - 1.2 mg/dL 09/07/2024 11:49 AM CDT [facility] Comment:Indocyanine Green (I CG) may cause falsely elevated bilirubin results. Total and direct bilirubin must not be measured from samples containing indocyanine green. False elevation of total bilirubin can be seen in patients with IgG concentrations above 28 g/L. eGFR 92 >=60 mL/min/1. 73 sq. m 09/07/2024 11:49 AM [facility] Comment: The eGFRcr is calculated with the [...] G2 fulfill criteria for CKD. Tot Protein 6.7 6.4 - 8.3 gm/dL 09/07/2024 11:49 AM [facility] Calcium Level Total 8.5 8.2 - 10.2 mg/dL 09/07/2024 11:49 AM T [facility] Alkaline Phosphatase 94 40 - 129 U/L 09/07/2024 11:49 AM T [facility] Albumin Level 3.4(L) 3.5 - 5.2 gm/dL 09/07/2024 11:49 AM T [facility] AST 15 <=40 U/L 09/07/2024 11:49 AM CDT [facility] ALT 9 <=41 U/L 09/07/2024 11:49 AM [facility] Sodium Level 138 136 - 145 mmol/L 09/07/2024 11:49 AM CDT [facility] Potassium Level 3.6 3.4 - 4.5 mmol/L 09/07/2024 11:49 AM CDT [facility] Chloride 102 98 - 107 mmol/L 09/07/2024 11:49 AM CDT [facility] CO2 29 22 - 29 mmol/L 09/07/2024 11:49 AM CDT [facility] Anion Gap 7 4 - 14 mmol/L 09/07/2024 11:49 AM CDT [facility] Creatinine 0.95 0.67 - 1.17 mg/dL 09/07/2024 11:49 AM CDT [facility] BUN <4(L) 6 - 23 mg/dL 09/07/2024 11:49 AM CDT [facility] Glucose Level 150(H) 70 - 99 mg/dL 09/07/2024 11:49 AM CDT [facility] Comment: Effective 12/14/15, the glucose reference intervals have been updated based on [place] Diabetes [employer] guidelines (Standards of Medical Care in Diabetes 2016. Diabetes Care 2016; 39: S13-S22). Fasting blood glucose: Normal: 70-99 mg/dL Impaired fasting glucose (increased risk for diabetes or pre-diabetes): 100-125 mg/dL Diabetes mellitus: >/=126 mg/dL Random blood glucose: Normal: 70-199 mg/dL Note: Random glucose >100 mg/dL is associated with increased risk for diabetes. Blood Peripheral blood specimen / Unknown Port / Unknown 09/07/2024 10:49 AM CDT 09/07/2024 10:50 AM CDT us Marianela Hutchinson MD LAB BLOOD ORDERABLES Final Re sult [facility] Unless otherwise noted, all lab tests performed by: Division of Pathology and Laboratory Medicine [address] [place] [phone] * (ABNORMAL) Phosphorus Level (09/07/2024 10:49 AM CDT) Only the most recent of8 resultswithin the time period is included. Phosphorus Level 2.4(L) 2.5 - 4.5 mg/dL 09/07/2024 11:49 AM CDT [facility] Blood Peripheral blood specimen / Unknown Port / Unknown 09/07/2024 10:49 AM CDT 09/07/2024 10:50 AM CDT Gillian PRICE- LAB BLOOD ORDERABLES Final Result Performing Organization Address City/[facility] de Phone Number [facility] Unless otherwise noted, all lab tests performed by: Division of Pathology and Laboratory Medicine [address] [place] [id number] * Magnesium Level (09/07/2024 10:49 AM CDT) Only the most recent of8 resultswithin the time period is included. Magnesium Level 1.8 1.6 - 2.6 mg/dL 09/07/2024 11:49 AM CDT [facility] Blood Peripheral blood specimen / Unknown Port / Unknown 09/07/2024 10:49 AM CDT 09/07/2024 10:50 AM CDT Gillian Gomez PA-C LAB BLOOD ORDERABLES Final Result Performing Organization Address [facility] de Phone Number [facility] Unless otherwise noted, all lab tests performed by: Division of Pathology and Laboratory Medicine [address] [place] [phone] * LDH (09/07/2024 10:49 AM CDT) Only the most recent of8 resultswithin the time period is included. LDH 148 135 - 225 U/L 09/07/2024 11:49 AM CDT [facility] Blood Peripheral blood specimen / Unknown Port / Unknown 09/07/2024 10:49 AM CDT 09/07/2024 10:50 AM CDT Narrative [facility] - 09/07/2024 11:49 AM CDT Results greater than 1651 U/L may not be reliable due to matrix effect with extended dilution as it exceeds the principal developer's recommended limit. Caution should be exercised when interpreting such values and done in conjunction with clinical context. Gillian Gomez PA-C LAB BLOOD ORDERABLES Final Result Performing Organization Address City/[facility]/ZIP Co de Phone Number [facility] Unless otherwise noted, all lab tests performed by: Division of Pathology and Laboratory Medicine [address] [place] [phone] * CEA (09/07/2024 10:49 AM CDT) Only the most recent of7 resultswithin the time period is included. Carcinoembryonic Antigen 1.9 <=3.8 ng/mL 09/07/2024 12:08 PM CDT [facility] Blood Peripheral blood specimen / Unknown Port / Unknown 09/07/2024 10:49 AM CDT 09/07/2024 10:50 AM CDT Narrative [facility] - 09/07/2024 12:08 PM CDT Reference Ranges (age 20-69 years): Non-smoker: <= 3.8 ng/mL Smoker: <= 5.5 ng/mL This test is measured by electrochemiluminescence immunoassay on Cornelius Nikki immunoassay analyzers. Results obtained in different methods are not interchangeable. Gillian Gomez PA-C LAB BLOOD ORDERABLES Final Result Performing Organization Address [facility] de Phone Number [facility] Unless otherwise noted, all lab tests performed by: Division of Pathology and Laboratory Medicine [address] [place] [phone] * CT Chest Abdomen Pelvis with Contrast (07/15/2024 4:38 PM LEAD FIRE PROTECTION ENGINEER) Anatomical Region Laterality Modality Abdomen, Pelvis, Chest Computed Tomography 07/15/2024 5:39 PM LEAD FIRE PROTECTION ENGINEER Impressions 07/15/2024 9:45 PM LEAD FIRE PROTECTION ENGINEER 1. Redemonstration of diffuse wall thickening of [...] and potentially actionable. Narrative 07/15/2024 9:45 PM LEAD FIRE PROTECTION ENGINEER FULL RESULT: Examination: CT CHEST ABDOMEN PELVIS [...] CT ORDERABLES Final Result * Research Protocol [id number] (07/15/2024 10:01 AM LEAD FIRE PROTECTION ENGINEER) Only the most recent of2 resultswithin the time period is included. Research Protocol Specimen Specimen Collected, Ready for Pickup. 07/15/2024 12:00 PM LEAD FIRE PROTECTION ENGINEER [facility] Blood Venipuncture / Unknown 07/15/2024 10:01 AM LEAD FIRE PROTECTION ENGINEER 07/15/2024 10:10 AM LEAD FIRE PROTECTION ENGINEER Marianela Hutchinson MD RESEARCH LAB Z CODES Final Re sult [facility] Unless otherwise noted, all lab tests performed by: Division of Pathology and Laboratory Medicine [address] [place] [phone] * IHC Workup (07/07/2024 12:29 PM LEAD FIRE PROTECTION ENGINEER) Tissue 07/07/2024 12:2 9 PM LEAD FIRE PROTECTION ENGINEER 07/07/2024 12:29 PM LEAD FIRE PROTECTION ENGINEER Gillian Gomez PA-C, MDA AP BIOMARKER ORDERABLE S Final Result Performing Organization Address City/[facility]/ZIP Co de Phone Number [facility] [place] [address], * (ABNORMAL) POC Glucose Screen - Fingerstick (06/30/2024 1:23 PM LEAD FIRE PROTECTION ENGINEER) Only the most recent of24 resultswithin the time period is included. Glucose Screen 168(H) 70 - 99 mg/dL 06/30/2024 1:25 PM LEAD FIRE PROTECTION ENGINEER [facility] POC Sample Type Capillary 06/30/2024 1:25 PM LEAD FIRE PROTECTION ENGINEER [facility] Blood 06/30/2024 1:23 PM LEAD FIRE PROTECTION ENGINEER 06/30/2024 1:25 PM LEAD FIRE PROTECTION ENGINEER Narrative [facility] - 06/30/2024 1:25 PM LEAD FIRE PROTECTION ENGINEER Capillary blood samples, e.g. obtained by fingerstick, [...] DE VICE Final Result Performing Organization Address City/[facility]/ZIP Co de Phone Number [facility] Unless otherwise noted, all lab tests performed by: Division of Pathology and Laboratory Medicine [address] [place] [phone] * Pathology Biopsy Interpretation (06/30/2024 12:51 PM LEAD FIRE PROTECTION ENGINEER) Only the most recent of3 resultswithin the time period is included. Addendum 1 By immunohistochemistry, approximately 10% of the tumor cells show weakly to moderately cytoplasmic staining for claudin 18. By immunohistochemistry the combined positive score (CPS) for PD-L1 is <1. 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 07/10/2024 8:47 AM [facility] Gross Description A: Esophagus, lower esophageal ulcer at 37cm: Multiple soft light castillo tissue fragments, 0.7 x 0.6 x 0.1 cm in aggregate, entirely submitted in A1. ET 07/10/2024 8:47 AM [facility] Biomarker Block(s) Block for biomarker testing: A1 07/10/2024 8:47 AM [facility] Disclaimer "Some tests reported here may have been developed and performance characteristics determined by [facility] Pathology and Laboratory Medicine. These tests have not been specifically cleared or approved by the U.S. Food and Drug Administration. If applicable, controls were reviewed and showed appropriate reactivity." 07/10/2024 8:47 AM [facility] Tissue (Esophagus) 06/30/2024 12:51 PM LEAD FIRE PROTECTION ENGINEER 06/30/2024 2:51 PM LEAD FIRE PROTECTION ENGINEER us Brandon Galo MD LAB PATHOLOGY ORDERA ANDERSS Edited Result - Final [facility] [address] [place] [address], [place] * (ABNORMAL) POC Chem 8 (06/30/2024 11:10 AM LEAD FIRE PROTECTION ENGINEER) Only the most recent of2 resultswithin the time period is included. Pathologist [facility] POC Sodium 136(L) 138 - 146 mmol/L 06/30/2024 11:13 AM [facility] POC Potassium 4.5 3.5 - 4.9 mmol/L 06/30/2024 11:13 AM [facility] POC Chloride 100 98 - 109 mmol/L 06/30/2024 11:13 AM [facility] POC VTCO2 27 24 - 29 mmol/L 06/30/2024 11:13 AM [facility] POC Anion Gap 14 10 - 20 mmol/L 06/30/2024 11:13 AM [facility] POC BUN 30(H) 8 - 26 mg/dL 06/30/2024 11:13 AM [facility] POC Creatinine 1.1 0.6 - 1.3 mg/dL 06/30/2024 11:13 AM [facility] Comment:Medications, especia lly hydroxyurea or supplements, such as ascorbate, can interfere with test results causing a falsely and significantly higher result than expected. If a problem is suspected with a patient's result, a sample should be sent to the laboratory for confirmatory testing. POC I Glu 182(H) 70 - 99 mg/dL 06/30/2024 11:13 AM [facility] Comment:Medications, especia lly hydroxyurea or supplements, such as ascorbate, can interfere with test results causing a falsely and significantly higher result than expected. If a problem is suspected with a patient's result, a sample should be sent to the laboratory for confirmatory testing. POC Ionized Calcium 1.26 1.12 - 1.32 mmol/L 06/30/2024 11:13 AM [facility] POC Hct 39.0 38.0 - 51.0 % 06/30/2024 11:13 AM [facility] POC Hgb 13.3 12.0 - 17.0 gm/dL 06/30/2024 11:13 AM [facility] Comment:Hematocrit values fr om the [...] standard. POC Sample Type Venous 11:13 AM LEAD FIRE PROTECTION ENGINEER [facility] POC eGFR 77 >=60 mL/min/1.7 3 sq. m 06/30/2024 11:13 AM [facility] Comment: The eGFRcr is [...] for CKD. Blood 06/30/2024 11:1 0 AM LEAD FIRE PROTECTION ENGINEER 06/30/2024 11:13 AM LEAD FIRE PROTECTION ENGINEER Narrative [facility] - 06/30/2024 11:13 AM LEAD FIRE PROTECTION ENGINEER Method description: The i-STAT is an analyzer [...] POCT ORDERABLES - DE VICE Final Result [facility] Unless otherwise noted, all lab tests performed by: Division of Pathology and Laboratory Medicine [address] [place] [phone] * EKG, 12-Lead (Scheduled) (06/29/2024) Only the most recent of3 resultswithin the time period is included. Mary Kay Santamaria DIE BAKER ECG ORDERABLES Final R esult [facility] IECG * PETCT F18 FDG (Fluorodeoxyglucose) with contrast (06/20/2024 12:42 PM LEAD FIRE PROTECTION ENGINEER) Anatomical Region Laterality Modality Whole Body Positron Emissio n Tomography (PET) 06/20/2024 3:10 PM LEAD FIRE PROTECTION ENGINEER Impressions 06/20/2024 4:38 PM LEAD FIRE PROTECTION ENGINEER Biopsy-proven malignancy in the region of the [...] and potentially actionable. Narrative 06/20/2024 4:38 PM LEAD FIRE PROTECTION ENGINEER FULL RESULT: Examination: 18F-FDG-PET/CT with contrast, 06/20/2024 [...] that are unexpected and potentially actionable. us Gillian Gomez PA-C [facility] PETCT ORDERABLES Final Result * Transferrin with TIBC (06/01/2024 11:10 AM LEAD FIRE PROTECTION ENGINEER) Transferrin 211 200 - 360 mg/dL 06/01/2024 12:15 PM LEAD FIRE PROTECTION ENGINEER [facility] Total Iron Binding Capacity 295 250 - 450 mcg/dL 06/01/2024 12:15 PM LEAD FIRE PROTECTION ENGINEER [facility] Blood Peripheral blood specimen / Unknown Venipuncture / Unknown 06/01/2024 11:10 AM LEAD FIRE PROTECTION ENGINEER 06/01/2024 11:23 AM LEAD FIRE PROTECTION ENGINEER us Marianela Hutchinson MD LAB BLOOD ORDERABLES Final Re sult [facility] Unless otherwise noted, all lab tests performed by: Division of Pathology and Laboratory Medicine [address] [place] [id number] * (ABNORMAL) Iron Level (06/01/2024 11:10 AM LEAD FIRE PROTECTION ENGINEER) Iron Level 38(L) 59 - 158 mcg/dL 06/01/2024 12:15 PM LEAD FIRE PROTECTION ENGINEER [facility] Is patient fasting? No 06/01/2024 12:15 PM LEAD FIRE PROTECTION ENGINEER [facility] Blood Peripheral blood specimen / Unknown Venipuncture / Unknown 06/01/2024 11:10 AM LEAD FIRE PROTECTION ENGINEER 06/01/2024 11:23 AM LEAD FIRE PROTECTION ENGINEER us Marianela Hutchinson MD LAB BLOOD ORDERABLES Final Re sult Performing Organization Address [facility] Co de Phone Number [facility] Unless otherwise noted, all lab tests performed by: Division of Pathology and Laboratory Medicine [address] [place] [id number] [place] [address] Unless otherwise noted, all lab tests performed by: Division of Pathology and Laboratory Medicine [address] [place] [address] * Ferritin Level (06/01/2024 11:10 AM LEAD FIRE PROTECTION ENGINEER) Ferritin Level 59 30 - 400 ng/mL 06/01/2024 12:15 PM LEAD FIRE PROTECTION ENGINEER [facility] Blood Peripheral blood specimen / Unknown Venipuncture / Unknown 06/01/2024 11:10 AM LEAD FIRE PROTECTION ENGINEER 06/01/2024 11:23 AM LEAD FIRE PROTECTION ENGINEER Narrative [facility] - 06/01/2024 12:15 PM LEAD FIRE PROTECTION ENGINEER Reference range established for age 20 - 60 years us Marianela Hutchinson MD LAB BLOOD ORDERABLES Final Re sult [facility] [place] Unless otherwise noted, all lab tests performed by: Division of Pathology and Laboratory Medicine [facility] [place] [address] * Tip Verification Central Vascular Access Device (04/15/2024 3:50 PM LEAD FIRE PROTECTION ENGINEER) Narrative John Fong MD - 04/15/2024 3:50 PM LEAD FIRE PROTECTION ENGINEER John Fong MD 04/15/2024 3:50 PM Central Vascular Access Device Tip Verification Performed by: John Fong MD Authorized by: John Fong MD CVAD Properties Date device placed: 04/15/2024 Device placement location: [facility] Catheter Type: Implanted venous port Catheter lumen: Single lumen Vein location: Internal jugular vein Laterality: Right Tip in good position and cleared for infusion John Fong MD IV THERAPY ORDERABLES Final Re sult * XR Chest 1 View Portable (04/15/2024 2:45 PM LEAD FIRE PROTECTION ENGINEER) Anatomical Region Laterality Modality Chest Digital Radiogra phy 04/15/2024 2:50 PM LEAD FIRE PROTECTION ENGINEER Impressions 04/15/2024 2:53 PM LEAD FIRE PROTECTION ENGINEER 1. Right infusion port catheter terminates over [...] and potentially actionable. Narrative 04/15/2024 2:53 PM LEAD FIRE PROTECTION ENGINEER FULL RESULT: Examination: XR CHEST 1 VW [...] and potentially actionable. us John Fong MD [facility] DIAGNOSTIC IMAGING ORDERAB LES Final Result * Cytology Non-Right Of Way Cutter Interpretation (04/15/2024 12:33 PM LEAD FIRE PROTECTION ENGINEER) Gross Description 4 Pap Stain Slides 750 ml. clear yellow fluid Specimen concentrated by cytocentrifugation technique 4 4:07 PM LEAD FIRE PROTECTION ENGINEER [facility] Major Classification [facility]/benign 4 4:07 PM LEAD FIRE PROTECTION ENGINEER [facility] Diagnosis Peritoneal washing: No metastatic carcinoma identified Reactive mesothelial cells and histiocytes 4 4:07 PM LEAD FIRE PROTECTION ENGINEER [facility] Retained/Biomark er Testing SR:4S 4 4:07 PM LEAD FIRE PROTECTION ENGINEER [facility] Informational Points Some tests reported here may have been developed and performance characteristics determined by [facility] Pathology and Laboratory Medicine. These tests have not been specifically cleared or approved by the U.S. Food and Drug Administration. 4 4:07 PM [facility] Washing (Peritoneal Washing) 04/15/2024 12:33 PM LEAD FIRE PROTECTION ENGINEER 04/15/2024 1:10 PM LEAD FIRE PROTECTION ENGINEER us John Fong MD LAB CYTOLOGY ORDERABLES Final Result Performing Organization Address City/State/[facility] Co de Phone Number [facility] [address] [place] [phone], * Pathology Surgical Interpretation (04/15/2024 12:13 PM LEAD FIRE PROTECTION ENGINEER) Only the most recent of2 resultswithin the time period is included. Submitted Clinical History Adenocarcinoma of stomach [C16.9] 04/20/2024 8:13 PM LEAD FIRE PROTECTION ENGINEER [facility] Diagnosis A. Falciform ligament, resection: Fibroadipose tissue, no tumor present 04/20/2024 8:13 PM [facility] Gross Description A: Falciform ligament, falciorm ligament biopsy....or 16: Consists of a fragment of castillo-yellow, lobulated fat (0.8 x 0.6 x 0.5 cm) entirely submitted in cassette A1. EF 04/20/2024 8:13 PM [facility] Disclaimer "Some tests reported here may have been developed and performance characteristics determined by [facility] Pathology and Laboratory Medicine. These tests have not been specifically cleared or approved by the U.S. Food and Drug Administration. If applicable, controls were reviewed and showed appropriate reactivity." 04/20/2024 8:13 PM LEAD FIRE PROTECTION ENGINEER [facility] Tissue (Falciform Ligament) 04/15/2024 12:13 PM LEAD FIRE PROTECTION ENGINEER 04/15/2024 1:18 PM LEAD FIRE PROTECTION ENGINEER John Fong MD LAB PATHOLOGY ORDERABLES Final Result [facility] [address] [place] [address], [place] * [place] Central Venous Place Exchange (04/15/2024 11:40 AM LEAD FIRE PROTECTION ENGINEER) Narrative Systemgenerated, Documentation - 04/15/2024 11:40 AM LEAD FIRE PROTECTION ENGINEER This procedure requires no interpretation from the radiologist. John Fong MD IMG FLUOROSCOPY ORDERABLES Fin al Result * CT Abdomen Pelvis with IV Contrast (04/12/2024 11:18 AM LEAD FIRE PROTECTION ENGINEER) Anatomical Region Laterality Modality Abdomen, Pelvis Computed Tomogra phy 04/12/2024 11:5 2 AM LEAD FIRE PROTECTION ENGINEER Impressions 04/12/2024 12:11 PM LEAD FIRE PROTECTION ENGINEER Wall thickening and slight mucosal irregularity of [...] and potentially actionable. Narrative 04/12/2024 12:11 PM LEAD FIRE PROTECTION ENGINEER FULL RESULT: Examination: CT ABDOMEN PELVIS W [...] * Fractionated Bilirubin (04/12/2024 9:04 AM [facility]) Bilirubin Direct 04/12/20 9:47 AM [facility] Comment: Direct and indirect bilirubin will not be reported when Total bilirubin result is <0.3 mg/dL Indocyanine Green (ICG) may cause falsely elevated bilirubin results. Total and direct bilirubin must not be measured from samples containing indocyanine green. Bilirubin Indirect 2023 9:47 AM [facility] Comment:Direct and indirect bilirubin will not be reported when Total bilirubin result is <0.3 mg/dL Bilirubin Total <0.3 0.0 - 1.2 mg/dL 04/12/2024 9:47 AM [facility] Comment: Direct and indirect bilirubin [...] Unknown Venipuncture / Unknown 04/12/2024 9:04 AM LEAD FIRE PROTECTION ENGINEER 04/12/2024 9:08 AM LEAD FIRE PROTECTION ENGINEER Nghia Zhu MD LAB BLOOD ORDERABLES Final Resu lt Performing Organization Address [facility] de Phone Number [facility] Unless otherwise noted, all lab tests performed by: Division of Pathology and Laboratory Medicine [address] [place] [address] * (ABNORMAL) Lipase (04/12/2024 9:04 AM LEAD FIRE PROTECTION ENGINEER) Lipase Level 311(H) 13 - 60 U/L 04/12/2024 10:09 AM LEAD FIRE PROTECTION ENGINEER [facility] Blood Peripheral blood specimen / Unknown Venipuncture / Unknown 04/12/2024 9:04 AM LEAD FIRE PROTECTION ENGINEER 04/12/2024 9:08 AM LEAD FIRE PROTECTION ENGINEER Narrative [facility] - 04/12/2024 10:09 AM LEAD FIRE PROTECTION ENGINEER Reference range established based on adult population us Nghia Zhu MD LAB BLOOD ORDERABLES Final Resu lt Performing Organization Address [facility] de Phone Number [facility] Unless otherwise noted, all lab tests performed by: Division of Pathology and Laboratory Medicine [address] [place] [address] * (ABNORMAL) Amylase (04/12/2024 9:04 AM LEAD FIRE PROTECTION ENGINEER) Amylase Level 171(H) 28 - 100 U/L 04/12/2024 9:47 AM LEAD FIRE PROTECTION ENGINEER [facility] Blood Peripheral blood specimen / Unknown Venipuncture / Unknown 04/12/2024 9:04 AM LEAD FIRE PROTECTION ENGINEER 04/12/2024 9:08 AM LEAD FIRE PROTECTION ENGINEER us Nghia Zhu MD LAB BLOOD ORDERABLES Final Resu lt Performing Organization Address [facility]/ZIP Co de Phone Number [facility] Unless otherwise noted, all lab tests performed by: Division of Pathology and Laboratory Medicine [address] [place] [address] * TSH (04/09/2024 11:09 AM LEAD FIRE PROTECTION ENGINEER) Only the most recent of2 resultswithin the time period is included. Thyroid Stimulating Hormone 1.53 0.27 - 4.20 mcunit/mL 04/09/2024 12:23 PM LEAD FIRE PROTECTION ENGINEER [facility] Blood Peripheral blood specimen / Unknown Venipuncture / Unknown 04/09/2024 11:09 AM LEAD FIRE PROTECTION ENGINEER 04/09/2024 11:19 AM LEAD FIRE PROTECTION ENGINEER us Ceci Nicholson MD LAB BLOOD ORDERABLES Final Resu lt Performing Organization Address [facility] Co de Phone Number [facility] Unless otherwise noted, all lab tests performed by: Division of Pathology and Laboratory Medicine [address] [place] [address] * (ABNORMAL) Hemoglobin A1c (04/09/2024 11:09 AM LEAD FIRE PROTECTION ENGINEER) Only the most recent of3 resultswithin the time period is included. Hemoglobin A1c 7.0(H) 4.3 - 5.6 % 04/09/2024 12:14 PM LEAD FIRE PROTECTION ENGINEER [facility] Blood Peripheral blood specimen / Unknown Venipuncture / Unknown 04/09/2024 11:09 AM LEAD FIRE PROTECTION ENGINEER 04/09/2024 11:19 AM LEAD FIRE PROTECTION ENGINEER Narrative [facility] - 04/09/2024 12:14 PM LEAD FIRE PROTECTION ENGINEER HbA1c values >=6.5% are diagnostic of diabetes mellitus. Diagnosis should be confirmed by repeat testing. Therapeutic Action suggested: >8.0% HbA1c; Goal of therapy: <7.0% HbA1c us Ceci Nicholson MD LAB BLOOD ORDERABLES Final Resu lt Performing Organization Address [facility]/ZIP Co de Phone Number [facility] Unless otherwise noted, all lab tests performed by: Division of Pathology and Laboratory Medicine [address] [place] [phone] * Pathology Outside Interpretation (04/02/2024) Materials Received Accession#, Stained, Block, Unstained Collected Received A. [id number], 20 SS, 0 BLOCKS, 0 USS 04/02/2024 04/22/2024 04/22/2024 5:36 PM [facility] Diagnosis Outside ([id number], 20 SS, 0 BLOCKS, 0 USS, collected [...] FEATURES. See comment. CLEMENTE/ISAURO 04/22/2024 5:36 PM [facility] Comment Part A. There is no evidence of malignancy on H&E and immunohistochemical stain for Cytokeratin AE1/AE3. Of note, the biopsy may not be agency sales representative of the entire lesion. Please [...] immunohistochemistry: Negative (Score: 0) 04/22/2024 5:36 PM [facility] Biomarker Block(s) Block for biomarker testing: C1 Normal block: N/A 04/22/2024 5:36 PM [facility] Disclaimer "Some tests reported here may have been developed and performance characteristics determined by [facility] Pathology and Laboratory Medicine. These tests have not been specifically cleared or approved by the U.S. Food and Drug Administration. If applicable, controls were reviewed and showed appropriate reactivity." 04/22/2024 5:36 PM LEAD FIRE PROTECTION ENGINEER [facility] Tissue 04/02/2024 04/22/2024 6:4 0 AM LEAD FIRE PROTECTION ENGINEER Sybil Edmonds MD LAB PATHOLOGY ORDERABLES Final R esult [facility] [address] [place] [address], [place] * OSI CT Abdomen and Pelvis (04/01/2024 8:21 AM LEAD FIRE PROTECTION ENGINEER) Only the most recent of2 resultswithin the time period is included. Narrative Systemgenerated, Documentation - 04/27/2024 8:22 AM LEAD FIRE PROTECTION ENGINEER Study acquired at another institution. For comparison only. No [facility] originated interpretation requested or available. [facility] Regan Zhu DO IMG OUTSIDE IMAGE ORDERAB LES Final Result * OSI CT CHEST ABDOMEN PELVIS (03/23/2024 7:37 PM LEAD FIRE PROTECTION ENGINEER) Narrative Systemgenerated, Documentation - 04/09/2024 7:37 PM LEAD FIRE PROTECTION ENGINEER Study acquired at another institution. For comparison only. No [facility] originated interpretation requested or available. Margoth Souza MD IMG OUTSIDE IMAGE ORDERABLES Fin al Result * OSI Chest (03/23/2024 7:37 PM LEAD FIRE PROTECTION ENGINEER) Only the most recent of4 resultswithin the time period is included. Narrative Systemgenerated, Documentation - 04/09/2024 7:37 PM LEAD FIRE PROTECTION ENGINEER Study acquired at another institution. For comparison only. No [facility] originated interpretation requested or available. us Margoth Souza MD IMG OUTSIDE IMAGE ORDERABLES Fin al Result * OSI CT Chest (03/22/2024 8:21 AM LEAD FIRE PROTECTION ENGINEER) Narrative Systemgenerated, Documentation - 04/27/2024 8:21 AM LEAD FIRE PROTECTION ENGINEER Study acquired at another institution. For comparison only. No [facility] originated interpretation requested or available. [facility] Regan Zhu DO IMG OUTSIDE IMAGE ORDERAB LES Final Result * (ABNORMAL) Basic Metabolic Panel- Total Calcium (01/03/2024 2:59 PM CDT) Only the most recent of7 resultswithin the time period is included. eGFR 71 >=60 mL/min/1. 73 sq. m 01/03/2024 3:44 PM CDT [facility] Comment: The eGFRcr is calculated [...] reference intervals have been updated based on [place] Diabetes [employer] guidelines (Standards of Medical Care [...] Division of Pathology and Laboratory Medicine [address] [place] [address] * Zinc Transporter 8 Ab (01/03/2024 4:22 AM CDT) Pathologist [facility] Zinc T8 AB <15.0 <15.0 U/mL 01/15/2024 11:18 AM CDT [facility] TIFF Comment: ADDITIONAL INFORMATION This test has been modified from the principal developer's instructions. Its performance characteristics were determined by [facility] in a manner consistent with CLIA requirements. This test has not been cleared or approved by the U.S. Food and Drug Administration. Test Performed by: [address] [address] Roll Changer: Mary Jane Topete Ph.D.; CLIA# [id number] Blood Peripheral blood specimen / Unknown Venipuncture / Unknown 01/03/2024 4:22 AM CDT 01/03/2024 4:55 AM CDT Alicia Sohail [place] FRANK LAB BLOOD ORDERABLES Final Result Performing Organization Address [facility] de Phone Number [facility] * Islet Antigen 2 (IA-2) Antibody (01/03/2024 4:22 AM CDT) IA-2 Antibody 0.00 <=0.02 nmol/L 01/07/2024 12:20 AM CDT [facility] Comment: ADDITIONAL INFORMATION This test was developed and its performance characteristics determined by [facility] in a manner consistent with CLIA requirements. This test has not been cleared or approved by the U.S. Food and Drug Administration. Test Performed by: [facility] - [address] [address] Roll Changer: Mary Jane Topete Ph.D.; CLIA# [id number] Blood Peripheral blood specimen / Unknown Venipuncture / Unknown 01/03/2024 4:22 AM CDT 01/03/2024 4:55 AM CDT Alicia Mcmanus APRN LAB BLOOD ORDERABLES Final Result Performing Organization Address [facility] de Phone Number [facility] * GREG Ab Assay (01/03/2024 4:22 AM CDT) Pathologist [id number] 0.00 <=0.02 nmol/L 01/07/2024 12:01 AM CDT [facility] Comment: ADDITIONAL INFORMATION This test was developed and its performance characteristics determined by [facility] in a manner consistent with CLIA requirements. This test has not been cleared or approved by the U.S. Food and Drug Administration. Test Performed by: [address] [address] Roll Changer: Mary Jane Topete Ph.D.; CLIA# [id number] Blood Peripheral blood specimen / Unknown Venipuncture / Unknown 01/03/2024 4:22 AM CDT 01/03/2024 4:55 AM CDT Alicia Mcmanus APRN LAB BLOOD ORDERABLES Final Result Performing Organization Address [facility]/ZIP Co de Phone Number [facility] * Insulin Ab (01/03/2024 4:22 AM CDT) [facility] 0.00 0.00 - 0.02 nmol/L 01/06/2024 5:14 PM CDT [facility] Comment: ADDITIONAL INFORMATION This test was developed and its performance characteristics determined by [facility] in a manner consistent with CLIA requirements. This test has not been cleared or approved by the U.S. Food and Drug Administration. Test Performed by: [address] [address] Roll Changer: Mary Jane Topete Ph.D.; CLIA# [id number] Blood Peripheral blood specimen / Unknown Venipuncture / Unknown 01/03/2024 4:22 AM CDT 01/03/2024 4:55 AM CDT Alicia Mcmanus APRN LAB BLOOD ORDERABLES Final Result Performing Organization Address City/[facility] Co de Phone Number [facility] * C Peptide (01/03/2024 4:22 AM CDT) [facility] C-Peptide 2.12 1.10 - 4.40 ng/mL 01/03/2024 5:48 AM CDT [facility] Blood Peripheral blood specimen / Unknown Venipuncture / Unknown 01/03/2024 4:22 AM CDT 01/03/2024 4:55 AM CDT us Alicia Sohail Mcmanus APRN LAB BLOOD ORDERABLES Final Result [facility] Unless otherwise noted, all lab tests performed by: Division of Pathology and Laboratory Medicine [address] [place] [address] * (ABNORMAL) Hemogram (01/02/2024 7:20 PM CDT) [...] PM CDT Derian PRICE LAB BLOOD ORDERABLES Final R esult [facility] Unless otherwise noted, all lab tests performed by: Division of Pathology and Laboratory Medicine [address] [place] [phone] * (ABNORMAL) Beta Hydroxy Quant (01/02/2024 7:20 [...] Division of Pathology and Laboratory Medicine [address] [place] [address] * (ABNORMAL) ABG+ (ABG, Na, K, Cl, [...] - 105 mg/dL 01/02/2024 10:44 AM CDT [facility] Hgb Art 12.9(L) 13.5 - 17.5 g/dL 01/02/2024 10:44 AM CDT [facility] Hematocrit Arterial 40(L) 42 - 52 % 01/02/2024 10:44 AM CDT [facility] Lactate Arterial 1.0(H) 0.4 - 0.8 mmol/L 01/02/2024 10:44 AM CDT [facility] Calcium Ionized Arterial 1.14(L) 1.15 - 1.29 mmol/L 01/02/2024 10:44 AM CDT [facility] pH Arterial 7.35 7.35 - 7.45 01/02/2024 10:44 AM CDT [facility] P CO2 Arterial 42.9 35.0 - 48.0 mmHg 01/02/2024 10:44 AM CDT [facility] P O2 Arterial 164(H) 83 - 108 mmHg 01/02/2024 10:44 AM CDT [facility] Bicarbonate Arterial 24 21 - 28 mmol/L 01/02/2024 10:44 AM CDT [facility] WB Anion Gap 13 7 - 16 mmol/L 01/02/2024 10:44 AM T [facility] Base Excess Arterial -2 -2 - 3 mmol/L 01/02/2024 10:44 AM T [facility] Oxygen Saturation Arterial 99 95 - 99 % 01/02/2024 10:44 AM CDT [facility] Oxygen FLOW Rate/ FiO2 01/02/2024 10:44 AM CDT [facility] O2 Therapy 01/02/2024 10:44 AM CDT [facility] Art Kirill Test Not Applicable (Arterial Line Draw) 01/02/2024 10:44 AM CDT [facility] Blood Arterial blood specimen / [...] Division of Pathology and Laboratory Medicine [address] [place] [address] * Intraoperative Ultrasound - For Image Storage [...] Result [facility] - TRANSF[facility]ION [facility] [address] [facility] [address] [place] [address] * Preop Updated Expiration (12/23/2023 8:51 AM [...] [facility] [address] [place] [address] * (ABNORMAL) Urinalysis with Reflex Culture (12/23/2023 8:51 AM CDT) Only the most recent of2 resultswithin the time period is included. Urine Appearance Clear Clear 12/23/19 9:33 AM CDT [facility] Urine Color Straw Colorless, Straw, Yellow, Dark Yellow, Straw-Yellow 12/23/2023 9:33 AM CDT [facility] Urine Specific [place] 1.032 1.003 - 1.035 12/23/2023 9:33 AM [...] implementation of new instrumentation in the Main [place], allowing greater sensitivity of measurement. Urinalysis results reported by the [facility] using existing instrumentation, as well as Urinalysis testing performed manually or by back-up methodology at the main [place], will remain relatively unchanged. New reporting parameters and units will now be reported for all campuses. us Margoth Souza MD URINE ORDERABLES Final Result [facility] Unless otherwise noted, all lab tests performed by: Division of Pathology and Laboratory Medicine [address] [place] [address] * 30-Day Pre-Op Type and Screen (12/23/2023 [...] [facility] [address] [place] [address] [address] [place] [address] * TMP Interpretation Exception PreOp Expiration (12/23/2023 [...] [facility] [address] [facility] [address] [place] [address] * ACTH (12/09/2023 9:45 AM CDT) Only [...] with extended dilution as it exceeds the principal developer's recommended limit. ACTH reference intervals are established [...] Division of Pathology and Laboratory Medicine [address] [place] [address] * DHEA Sulfate (12/09/2023 9:45 AM CDT) Pathologist [facility] DHEAS-[place] 81 20 - 299 mcg/dL 12/10/2023 12:10 PM CDT [place] [facility] Comment: Test Performed by: [facility] [address] [place] [address] Roll Changer: Mary Jane Topete Ph.D.; CLIA# [id number] Blood Peripheral blood specimen / Unknown Venipuncture / Unknown 12/09/2023 9:45 AM CDT 12/09/2023 9:56 AM CDT Veronica Del Castillo DIE BAKER LAB BLOOD ORDERABLES Final Result [facility] * Cortisol, Total (12/09/2023 9:45 AM CDT) Only the most recent of4 resultswithin the time period is included. Pathologist [facility] Cortisol 11.39 4.82 - 19.50 mcg/dL 12/09/2023 [...] - 11.9 mcg/dL us Veronica Del Castillo APRN LAB BLOOD ORDERABLES Final Result [facility] Unless otherwise noted, all lab tests performed by: Division of Pathology and Laboratory Medicine [facility] [place] [address] * IR CT GUIDED BIOPSY RENAL (10/03/2023 10:27 AM CDT) Anatomical Region Laterality Modality Abdomen/Pelvis, Organ (liver/spleen/kidney) Computed Tomography Narrative 10/04/2023 9:03 AM CDT Table formatting from the original result was not included. Date of Procedure: 10/03/23 Attending Physician: Kumar Comer MD Stationary Boiler Fireman: None Pre Procedure Diagnosis: Renal mass Post [...] second(s) 10/03/2023 9:57 AM CDT [facility] International Normalization Ratio 0.98 0.87 - 1.12 10/03/2023 9:57 AM CDT [facility] Blood Peripheral blood specimen / Unknown Venipuncture / Unknown 10/03/2023 9:27 AM CDT 10/03/2023 9:28 AM CDT Abilio PRICE-Adams LAB BLOOD ORDERABLES Final Result [facility] [address] [facility] [place] [address] * Type and Screen (10/03/2023 9:27 AM [...] PA-C BLOOD BANK TEST ORDERABLES Final Result [facility] [address] [place] [address] * X-ray Chest 2 Views (09/19/2023 9:24 [...] and potentially actionable. us Shazia Arriaza MD [facility] DIAGNOSTIC IMAGING ORD ERABLES Final Result * Metanephrines Fractionated (09/16/2023 4:24 PM CDT) Pathologist [facility] Normetane Free-Maxwell 0.43 <0.90 nmol/L 09/19/2023 2:59 PM CDT [facility] TIFF Metanephr Free-Maxwell <0.20 <0.50 nmol/L 09/19/2023 2:59 PM CDT [facility] TIFF Comment: ADDITIONAL INFORMATION This test was developed and its performance characteristics determined by [facility] in a manner consistent with CLIA requirements. This test has not been cleared or approved by the U.S. Food and Drug Administration. Test Performed by: [facility] [place] [address] Roll Changer: Scot Skelton M.D. Ph.D.; CLIA# [id number] Blood Peripheral blood specimen / Unknown Venipuncture / Unknown 09/16/2023 4:24 PM CDT 09/16/2023 4:41 PM CDT Shazia Arriaza MD LAB BLOOD ORDERABLES Final Result [facility] TIFF * Hepatitis C Virus Antibody (09/16/2023 4:24 PM CDT) Pathologist [facility] HCVAb. Non Reactive Non Reactive 09/17/2023 9:11 [...] Division of Pathology and Laboratory Medicine [address] [place] [id number] * Aldosterone Level (09/16/2023 4:24 PM CDT) [facility] 8.1 <=21 ng/dL 09/20/2023 1:02 AM CDT [facility] TIFF Comment: ADDITIONAL INFORMATION Reference range for patients 11 years and older is based on upright A.M. collection from subjects without sodium restrictions. This test was developed and its performance characteristics determined by [facility] in a manner consistent with CLIA requirements. This test has not been cleared or approved by the U.S. Food and Drug Administration. Test Performed by: [facility] [place] [address] Roll Changer: Scot Skelton M.D. Ph.D.; CLIA# [id number] Blood Peripheral blood specimen / Unknown Venipuncture / Unknown 09/16/2023 4:24 PM CDT 09/16/2023 4:41 PM CDT Shazia Arriaza MD LAB BLOOD ORDERABLES Final Result Performing Organization Address City/[facility]/ZIP Co de Phone Number [facility] TIFF * Renin Activity (09/16/2023 4:24 PM CDT) [facility] 4.3 ng/mL/h 09/19 3:42 PM CDT [facility] TIFF Comment: REFERENCE VALUE (Peripheral vein specimen) Na-deplete, upright: Mean: 5.9 Range: 2.9-10.8 Na-replete, upright: Mean: 1.0 Range: < or =0.6-3.0 ADDITIONAL INFORMATION Testing performed by Liquid Chromatography-Tandem Mass Spectrometry (LC-MS/MS). This test was developed and its performance characteristics determined by [facility] in a manner consistent with CLIA requirements. This test has not been cleared or approved by the U.S. Food and Drug Administration. Test Performed by: [facility] - [address] [address] Roll Changer: Scot Skelton M.D. Ph.D.; CLIA# [id number] Blood Peripheral blood specimen / Unknown Venipuncture / Unknown 09/16/2023 4:24 PM CDT 09/16/2023 4:41 PM CDT us Shazia Arriaza MD LAB BLOOD ORDERABLES Final Result Performing Organization Address City/[facility]/ZIP Co de Phone Number [facility] TIFF * Urine Culture (09/16/2023 4:24 PM CDT) [facility] Urine Culture Normal site mirna present. Generally [...] Division of Pathology and Laboratory Medicine [address] [place] [phone] * T4 (09/16/2023 4:24 PM CDT) Thyroxine 7.0 4.5 - 11.7 mcg/dL 09/16/2023 5:55 PM CDT [facility] Blood Peripheral blood specimen / Unknown Venipuncture / Unknown 09/16/2023 4:24 PM CDT 09/16/2023 4:41 PM CDT Shazia Arriaza MD LAB BLOOD ORDERABLES Final Result [facility] Unless otherwise noted, all lab tests performed by: Division of Pathology and Laboratory Medicine [address] [place] [id number] * Confirm ABORh (09/16/2023 4:23 PM CDT) [facility] ABORh Confirm O POS 09/16/2023 4:15 PM CDT [facility] Blood Peripheral blood specimen / Unknown Venipuncture / Unknown 09/16/2023 4:23 PM CDT 09/16/2023 4:41 PM CDT Shazia Arriaza MD BLOOD BANK TEST ORDERABLES Final Result [facility] [address] [place] [address] [address] [place] [address] after 09/10/2023 Insurance MEDICARE PART A AND B MEDICARE PART A AND B Advance Directives * Full Code (Latest Code Status on File) Date Activated Date Inactivated Comments 04/12/2024 1:24 PM 04/12/2024 5:43 PM * Full Code Date Activated Date Inactivated Comments 01/02/2024 1:48 PM 01/03/2024 7:17 PM Care Teams Hospice Care Transitions Coordinator Relationship Specialty Start Date End Date Margoth Souza MD [address] [place] [phone] [email or web address] PCP - General Urology 07/30/23 04/14/24 Eagle Zhu DO [address] [place] [address] [phone] [email or web address] PCP - External Primary Care Provider Family Practice 04/08/24 Marianela Hutchinson MD [address] [place] [phone] [email or web address] PCP - General Gastrointestinal Medical Oncology 05/04/24 Mary Jane Cassidy MD [address] [place] [phone] [email or web address] Consulting Physician Endocrinology 12/09/23 Barry He MD [address] [place] [phone] [email or web address] Consulting Physician Internal Medicine 12/23/23 Patience Hunt MD [address] [place] [phone] [email or web address] Consulting Physician Endocrinology 12/31/23 Marianela Hutchinson MD [address] [place] [phone] [email or web address] Consulting Physician Gastrointestinal Medical Oncology 04/13/24 Margoth Souza MD [address] [place] [phone] [email or web address] Consulting Physician Urology 04/15/24 Ceci Nicholson MD [address] [place] [phone] [email or web address] Consulting Physician Internal Medicine 04/09/24 Sigifredo Davenport MD [address] [place] [phone] [email or web address] Consulting Physician Internal Medicine 06/29/24 Abilio Ng PA-C [address] [place] [phone] Physician Stationary Boiler Fireman Interventional Radiology 10/02/23
[2024-09-09] MEDS ORDERED: METOCLOPRAMIDE 10 MG/2mL INJ ONE (03:15)
[2024-09-09] MEDS ORDERED: NA CHLORIDE 0.9% 1,000 ML ONE (03:15)
[2024-09-09 03:35] LABS: Absolute Lymphocytes (CBC) 1.2 K/uL (0.7-4.9); Absolute Monocytes 0.5 K/uL (0.1-1.3); Absolute Neutrophil 3.9 K/uL (1.8-8.0); Basophils % 0.7 % (0-1.3); Eosinophils % 0.8 % (0-4.4); Hematocrit 34.2 % (39.6-49.0); Hemoglobin 11.5 g/dL (13.6-17.9); Lymphocytes % 21.6 % (15.3-44.8); MCH 25.9 pg (27.0-35.0); MCHC 33.7 g/dL (32.0-36.0); MCV 76.6 fL (80-100); Monocytes % 8.2 % (3.3-12.3); Neutrophils % 68.7 % (41.7-73.7); Nucleated Red Blood Cells % 0.2 % (0-0); Platelets 320 thou/uL (152-406); RBC Red Blood Cell Count 4.46 M/uL (4.33-5.43); Red Cell Distribution Width 15.2 % (12.1-15.2)
[2024-09-09 03:41] LABS: Albumin 3.1 g/dL (3.4-5.0); Albumin/Globulin Ratio 0.7 (1.1-1.8); Anion Gap 10.1 mEq/L (5.0-15.0); Bilirubin Total 0.3 mg/dL (0.2-1.0); Globulin 4.6 g/dL (2.3-3.5); Potassium 3.1 mEq/L (3.5-5.1); Protein, Total 7.7 g/dL (6.4-8.2)
--- NOTE | 2024-09-09 06:01 | EDPHYS ---
Physician Documentation [facility] Name: Zeke Mackay Sr Age: 59 yrs Sex: Male : 1965 Arrival Date: 09/09/2024 Time: 02:50 Bed 15 Private MD: ED Physician Emma Guzman HPI: 09/09 05:45 This 59 yrs old Male presents to ER via Wheelchair with complaints of gb1 Nausea/Vomiting. 05:45 59-year-old male with history of gastric carcinoma had chemotherapy on Saturday has been gb1 vomiting intermittently since. He denies fever chills he has generalized allover abdominal cramping pain. He has history of drug and alcohol abuse for over 20 years ago. He denies alcohol or drugs. . 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 - Infectious Disease History:: Denies. - Social history:: Smoking status: Patient denies any tobacco usage or history of. Patient uses street drugs, marijuana, Patient/guardian denies using alcohol. Exam: 05:45 Constitutional: This is a well developed, well nourished patient who is awake, alert, gb1 and in no acute distress. Head/Face: Normocephalic, atraumatic. Eyes: Pupils equal round and reactive to light, extra-ocular motions intact. Lids and lashes normal. Conjunctiva and sclera are non-icteric and not injected. Cornea within normal limits. Periorbital areas with no swelling, redness, or edema. ENT: Nares patent. No nasal discharge, no septal abnormalities noted. Tympanic membranes are normal and external auditory canals are clear. Oropharynx with no redness, swelling, or masses, exudates, or evidence of obstruction, uvula midline. Mucous membranes moist. Neck: Trachea midline, no thyromegaly or masses palpated, and no cervical lymphadenopathy. Supple, full range of motion without nuchal rigidity, or vertebral point tenderness. No Meningismus. Chest/axilla: Normal chest wall appearance and motion. Nontender with no deformity. No lesions are appreciated. Cardiovascular: Regular rate and rhythm with a normal S1 and S2. No gallops, murmurs, or rubs. Normal PMI, no JVD. No pulse deficits. Respiratory: Lungs have equal breath sounds bilaterally, clear to auscultation and percussion. No rales, rhonchi or wheezes noted. No increased work of breathing, no retractions or nasal flaring. Abdomen/GI: Soft, non-tender, with normal bowel sounds. No distension or tympany. No guarding or rebound. No evidence of tenderness throughout. Back: No spinal tenderness. No costovertebral tenderness. Full range of motion. Male : Normal genitalia with no discharge or lesions. Skin: Warm, dry with normal turgor. Normal color with no rashes, no lesions, and no evidence of cellulitis. MS/ Extremity: Pulses equal, no cyanosis. Neurovascular intact. Full, normal range of motion. Vital Signs: 03:11 BP 212 / 95; Pulse 71; Resp 18; Temp 97.1(TE); Pulse Ox 100% on R/A; Weight 81.19 kg; br2 Height 6 ft. 2 in. ; Pain 0/10; 04:00 BP 201 / 90; Pulse 82; Resp 18; Pulse Ox 100% on R/A; rg5 05:00 BP 194 / 97; Pulse 85; Resp 19; Pulse Ox 99% on R/A; Pain 0/10; rg5 06:01 BP 182 / 96; Pulse 83; Resp 18; Pulse Ox 98% on R/A; rg5 07:15 BP 182 / 96; Pulse 82; Resp 16; Pulse Ox 100% ; db 03:11 Body Mass Index 22.98 (81.19 kg, 187.96 cm) br2 03:11 Pain Scale: Adult br2 05:00 Pain Scale: Adult rg5 MDM: 03:11 Medical Screening Exam initiated gb1 05:45 Data reviewed: vital signs, nurses notes, lab test result(s), EKG, radiologic studies. gb1 ED course: 59-year-old male with nausea vomiting p.o. intolerance. He denies any abdominal pain I doubt a small bowel obstruction but a CT abdomen pelvis is pending. Disposition per the patient CT scan as to whether pertains to call a general surgeon. I have admitted the patient to Dr. Goldman's hospitalist service for p.o. intolerance.. 06:57 ED course: 59-year-old male with history of gastric cancer with reported mets here with gb1 nausea vomiting requiring IV medications. No small bowel obstruction or any intra or abdominal findings that are acute here today. Discussed with patient the consideration of admission to the hospital for p.o. intolerance which he adamantly refused. Patient even refused to complete a p.o. challenge here prior to discharge. I discussed this with the patient again at length with the nurse at the bedside and he adamantly refused to sip liquids. Patient has nausea medicines at home and requests discharge to the emergency department.. 09/09 03:11 Order name: CBC with Diff; Complete Time: 03:43 gb1 09/09 03:11 Order name: CMP; Complete Time: 03:43 gb1 09/09 03:11 Order name: Lipase; Complete Time: 03:43 gb1 09/09 05:35 Order name: CT Abd/Pelvis - IV Contrast Only; Complete Time: 06:55 gb1 09/09 03:11 Order name: IV Saline Lock; Complete Time: 03:17 gb1 09/09 03:11 Order name: Labs collected and sent; Complete Time: 03:18 gb1 Administered Medications: 03:21 Drug: NS 0.9% IV 1000 ml IV at 1 bolus Per protocol; to be given as a bolus over 60 rg5 minutes Route: IV; Rate: 1 bolus; Site: right antecubital; 07:45 Follow up: Response: No adverse reaction; IV Status: Completed infusion; IV Intake: db 1000ml 03:21 Drug: metoCLOPramide IVP 10 mg IVP once; over 1 to 2 minutes Route: IVP; Site: right rg5 antecubital; 04:38 Follow up: Response: No adverse reaction; Pain is decreased rg5 06:18 Drug: Promethazine IVP 12.5 mg IVP once Route: IVP; Site: right antecubital; rg5 06:41 Follow up: Response: No adverse reaction rg5 Disposition Summary: 09/09/24 06:57 Discharge Ordered Notes: Location: Home(09/09/24 06:57) gb1 Problem: new(09/09/24 06:57) gb1 Symptoms: have worsened(09/09/24 06:57) gb1 Condition: Fair(09/09/24 06:57) gb1 Diagnosis - Nausea with vomiting, unspecified(09/09/24 06:57) gb1 Followup: gb1 - With: Private Physician - When: - Reason: If symptoms return Discharge Instructions: - Discharge Summary Sheet gb1 - Nausea, Adult gb1 Forms: - Medication Reconciliation Form gb1 - Antibiotic Education gb1 - Prescription Opioid Use gb1 - Patient Portal Instructions gb1 - Leadership Thank You Letter gb1 Signatures: Dispatcher [employer] EDMS Emma Guzman MD MD gb1 Alec Fuentes, RN RN rg5 Courtney Dubose RN RN br2 Pam Burnett RN db Corrections: (The following items were deleted from the chart) 03:11 03:11 CBC+H.LAB.BRZ ordered. EDMS EDMS 03:11 03:11 COMPREHENSIVE METABOLIC PANEL+C.LAB.BRZ ordered. EDMS EDMS 03:11 03:11 LIPASE+C.LAB.BRZ ordered. EDMS EDMS 06:56 06:00 Observation gb1 gb1 06:56 06:00 Jones, Azfar gb1 gb1 06:56 06:00 Telemetry/MedSurg (observation) gb1 gb1 06:56 06:00 Stable gb1 gb1 06:56 06:00 new gb1 gb1 06:56 06:00 have worsened gb1 gb1 06:56 06:00 Standard gb1 gb1 06:56 06:00 gb1 gb1 06:56 06:00 Nausea with vomiting, unspecified gb1 gb1 06:56 06:00 Personal history of antineoplastic chemotherapy gb1 gb1
--- NOTE | 2024-09-09 06:01 | ER ---
Nurse's Notes [facility] Name: Zeke Mackay Sr Age: 59 yrs Sex: Male : 1965 Arrival Date: 09/09/2024 Time: 02:50 Bed 15 Private MD: Diagnosis: Nausea with vomiting, unspecified Presentation: 09/09 03:11 Chief complaint: Patient states: NAUSEA/VOMITING. PT HAS COLON CA AND IS ON CHEMO. PT br2 TOOK PHENERGAN AT NOON BUT DIDN'T HELP. DENIES PAIN AT THIS TIME. Coronavirus screen: Client denies travel out of the [place] in the last 14 days. Ebola Screen: Patient denies exposure to infectious person. Initial Sepsis Screen: Does the patient meet any 2 criteria? No. Patient's initial sepsis screen is negative. Does the patient have a suspected source of infection? No. Patient's initial sepsis screen is negative. Risk Assessment: Do you want to hurt yourself or someone else? Patient reports no desire to harm self or others. Onset of symptoms is unknown. 03:11 Method Of Arrival: Wheelchair br2 03:11 Acuity: RICKEY 3 br2 Triage Assessment: 03:13 General: Appears uncomfortable, Behavior is quiet. Pain: Denies pain. GI: Reports br2 nausea, vomiting. 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 - Infectious Disease History:: Denies. - Social history:: Smoking status: Patient denies any tobacco usage or history of. Patient uses street drugs, marijuana, Patient/guardian denies using alcohol. Screenin:10 [facility] ED Fall Risk Assessment (Adult) History of falling in the last 3 months, rg5 including since admission No falls in past 3 months (0 pts) Confusion or Disorientation No (0 pts) Intoxicated or Sedated No (0 pts) Impaired Gait Yes (1 pt) Mobility Assist Device Used Yes (1 pt) Altered Elimination No (0 pt) Score/Fall Risk Level 0 - 2 = Low Risk Oriented to surroundings, Maintained a safe environment, Educated pt \T\ family on fall prevention, incl call for assistance when getting out of bed. Abuse screen: Denies threats or abuse. Nutritional screening: On. Tuberculosis screening: No symptoms or risk factors identified. Assessment: 03:10 General: Appears uncomfortable, Behavior is calm, cooperative, appropriate for age. rg5 03:10 Pain: Complains of pain in abdomen. Neuro: Level of Consciousness is awake, alert, rg5 obeys commands. Cardiovascular: Denies chest pain. Respiratory: Airway is patent Trachea midline Respiratory effort is even, unlabored, Breath sounds are clear. GI: Abdomen is flat, non-distended, Abd is soft and non tender Reports diarrhea, nausea, vomiting. : No signs and/or symptoms were reported regarding the genitourinary system. EENT: No deficits noted. Derm: Skin is intact, Skin is dry, Skin is normal, Skin temperature is warm. Musculoskeletal: Circulation, motion, and sensation intact. Range of motion: intact in all extremities. 04:32 Reassessment: CHEKO( daughter)-[phone]. rg5 05:20 Reassessment: No changes from previously documented assessment. Patient and/or family rg5 updated on plan of care and expected duration. Pain level reassessed. Patient is alert, oriented x 3, equal unlabored respirations, skin warm/dry/pink. 06:01 Reassessment: No changes from previously documented assessment. Patient and/or family rg5 updated on plan of care and expected duration. Pain level reassessed. Patient is alert, oriented x 3, equal unlabored respirations, skin warm/dry/pink. 07:15 Reassessment: Patient appears in no apparent distress at this time. Patient and/or db family updated on plan of care and expected duration. Pain level reassessed. Patient is alert, oriented x 3, equal unlabored respirations, skin warm/dry/pink. General: Appears in no apparent distress. comfortable, Behavior is calm, cooperative. 07:45 Reassessment: NOTIFIED PATIENT DAUGHTER. PATIENT DISCHARGED AND IS READY FOR RIDE HOME. db Vital Signs: 03:11 BP 212 / 95; Pulse 71; Resp 18; Temp 97.1(TE); Pulse Ox 100% on R/A; Weight 81.19 kg; br2 Height 6 ft. 2 in. ; Pain 0/10; 04:00 BP 201 / 90; Pulse 82; Resp 18; Pulse Ox 100% on R/A; rg5 05:00 BP 194 / 97; Pulse 85; Resp 19; Pulse Ox 99% on R/A; Pain 0/10; rg5 06:01 BP 182 / 96; Pulse 83; Resp 18; Pulse Ox 98% on R/A; rg5 07:15 BP 182 / 96; Pulse 82; Resp 16; Pulse Ox 100% ; db 03:11 Body Mass Index 22.98 (81.19 kg, 187.96 cm) br2 03:11 Pain Scale: Adult br2 05:00 Pain Scale: Adult rg5 ED Course: 02:51 Patient arrived in ED. jj6 02:54 Emma Guzman MD is Attending Physician. gb1 03:10 Patient has correct armband on for positive identification. Bed in low position. Call rg5 light in reach. Side rails up X 1. Door closed. Noise minimized. Warm blanket given. 03:10 No provider procedures requiring assistance completed. rg5 03:13 Triage completed. br2 03:13 Arm band placed on. br2 03:18 CBC with Diff Sent. af3 03:18 CMP Sent. af3 03:18 Lipase Sent. af3 03:18 Inserted saline lock: 20 gauge in right antecubital area, using aseptic technique. af3 Blood collected. Flushed with 10 mL NS. 03:18 Initial lab(s) drawn, by me, sent to lab. af3 03:19 Alec Fuentes, ARTURO is Primary Nurse. rg5 04:52 Assisted to bathroom. rg5 05:37 Assisted to bathroom. rg5 06:00 Emma Guzman MD is Hospitalizing Provider. gb1 06:00 Rudy Goldman MD is Hospitalizing Provider. gb1 06:03 Provided Education on: needs for admit. rg5 06:03 Patient admitted, IV remains in place. intact, No redness/swelling at site. rg5 06:16 CT Abd/Pelvis - IV Contrast Only In Process Unspecified. EDMS 06:52 Diet: Patient given snack. rg5 Administered Medications: 03:21 Drug: NS 0.9% IV 1000 ml IV at 1 bolus Per protocol; to be given as a bolus over 60 rg5 minutes Route: IV; Rate: 1 bolus; Site: right antecubital; 07:45 Follow up: Response: No adverse reaction; IV Status: Completed infusion; IV Intake: db 1000ml 03:21 Drug: metoCLOPramide IVP 10 mg IVP once; over 1 to 2 minutes Route: IVP; Site: right rg5 antecubital; 04:38 Follow up: Response: No adverse reaction; Pain is decreased rg5 06:18 Drug: Promethazine IVP 12.5 mg IVP once Route: IVP; Site: right antecubital; rg5 06:41 Follow up: Response: No adverse reaction rg5 Medication: 03:10 VIS not applicable for this client. rg5 Intake: 07:45 IV: 1000ml; Total: 1000ml. db Outcome: 06:00 Decision to Hospitalize by Provider. gb1 06:03 Admitted to ER Hold. Please see [facility] for further documentation. rg5 06:03 Condition: stable 06:03 Instructed on the need for admit, 06:57 Discharge ordered by . gb1 07:52 Patient left the ED. ss Signatures: Dispatcher [employer] EDMS Ruchi Navarrete RN RN ss Adriana Christie jj6 Pam Burnett RN RN db Emma Guzman MD MD gb1 Alec Fuentes RN RN rg5 Courtney Dubose RN RN br2 Gillian Hall3 Corrections: (The following items were deleted from the chart) 06:02 03:10 GI: Abdomen is flat, non-distended, Abd is soft and non tender Reports nausea, rg5 vomiting, rg5 08:15 08:15 Patient left the ED. ss ss
[2024-09-09] MEDS ORDERED: PROMETHAZINE INJ 25 MG/ML AMP ONE (06:16)
--- NOTE | 2024-09-09 06:54 | RAD REPORT ---
EXAM: CT Abdomen and Pelvis With Intravenous Contrast CLINICAL HISTORY: The patient is 59 years old and is Male; ABD PAIN TECHNIQUE: Axial computed tomography images of the abdomen and pelvis with intravenous contrast. Sagittal and coronal reformatted images were created and reviewed. This CT exam was performed using one or more of the following dose reduction techniques: automated exposure control, adjustmen t of the mA and/or kV according to patient size, and/or use of iterative reconstruction technique. COMPARISON: CT abdomen pelvis August 16, 2024. FINDINGS: Lung bases: Unremarkable. No mass. No consolidation. Heart: Cardiomegaly without significant pericardial fluid. ABDOMEN: Liver: Unremarkable. No mass. Gallbladder and bile ducts: Tiny calcified stones in the gallbladder. No ductal dilation. Pancreas: No findings to suggest acute pancreatitis. No mass visualized. No ductal dilation. Spleen: Unremarkable. No splenomegaly. Adrenals: Unremarkable. No mass. Kidneys and ureters: Bilateral perinephric fluid. Evidence of previous left renal with resection. No findings to suggest pyelonephritis or hydronephrosis. Stomach and bowel: Mild gastric wall thickening suggesting gastritis. Distal esophageal wall thic kening. Elongated gas-filled sigmoid colon extending into the epigastric region. No findings to sugge st colitis. Fluid-filled bowel loops. No bowel dilatation or obstruction. No bowel wall thickening. Air-fluid level in the stomach. PELVIS: Appendix: No findings to suggest acute appendicitis. Bladder: Mild bladder wall thickening versus artifact of incomplete distention. Reproductive: Mild prostate gland enlargement. ABDOMEN and PELVIS: Intraperitoneal space: Free fluid in the pelvis. No free air. Bones/joints: Old compression fractures at T11, L1 and L3. Degenerative changes in the line with mild scoliosis. No dislocation. Soft tissues: Unremarkable. Vasculature: Unremarkable. No abdominal aortic aneurysm. Lymph nodes: No pathologically enlarged lymph nodes. IMPRESSION: 1. Bilateral perinephric fluid. Evidence of previous left renal with resection. 2. Mild diffuse gastric wall thickening again visualized suggesting gastritis. Distal esophageal wa ll thickening. 3. Free fluid in the pelvis. 4. Mild bladder wall thickening versus artifact of incomplete distention. Correlate clinically for cystitis/UTI. 5. Mild prostate gland enlargement. 6. Cholelithiasis. 7. Additional non-emergent findings as above. Electronically signed by: Maria Eugenia Davis MD 09/09/2024 06:39 AM CDT V2 Due to temporary technical issues with the PACS/Matchae reporting system, reports are being brandon d by the in-house radiologist without review as a courtesy to ensure prompt reporting the interpreting radiologist is fully responsible for the content of the report. Transcribed Date/Time: 09/09/2024 6:54 AM
[2024-09-09 08:25] VITALS: TEMP 97.1
[2024-09-09 08:41] VITALS: BP 182/96; O2SAT 98
--- NOTE | 2024-09-09 09:39 | P.CNS ---
Date of Consult: 09/09/24 Reason for Consult: Eval for admit Requesting Physician: Emma Guzman Chief Complaint: Nausea and vomiting History of Present Illness: 59yo M, PMH: diabetes, hypertension, hypothyroidism, neuropathy, and history of kidney cancer Patient presented to the hospital for nausea and vomiting, he is currently on chemotherapy for stomach cancer. He was found to have hypokalemia with a potassium of 3.1, he is hypertensive and still feeling unwell. Given intractable nausea vomiting patient was recommended for admission to hospital. Allergies No Known Allergies Allergy (Verified 08/17/20 20:54) Home Medications: Aspirin Chewable [Aspirin Chewable*] 1 tab PO DAILY 02/27/24 Atorvastatin Calcium 1 tab PO BEDTIME 02/27/24 Metoprolol Tartrate 0.5 tab PO Q12H 02/27/24 Dapagliflozin Propanediol [Farxiga] 1 tab PO DAILY 02/28/24 Insulin Glargine/Lixisenatide [Soliqua 100 Unit-33 Mcg/ml Pen] 60 units SQ DAILY 02/28/24 Metformin HCl 2 tab PO DAILY 02/28/24 Amlodipine [Norvasc*] 5 mg PO DAILY #30 tab 02/29/24 Sucralfate [Carafate*] 10 ml PO ACHS PRN #1200 ml 02/29/24 Pantoprazole [Protonix Tab*] 40 mg PO BID 30 Days #60 tab 03/26/24 Amox/Clavulanate [Augmentin 875-125 Tab] 1 tab PO BID 5 Days #10 tab 08/11/24 Metoclopramide HCl [Reglan] 5 mg PO Q8H PRN #21 tab 08/11/24 dexAMETHasone [Dexamethasone] 2 tab PO BID 5 Days #20 tab 08/11/24 - Past Medical/Surgical History Diabetic: Yes -: Neuropathy -: Diabetes -: Hyperlipidemia -: Osteomyelitis -: AFib -: RENAL CELL CARCINOMA -: HTN -: lap appy -: L wrist fx repair -: R hand fx repair -: c3-6 fused -: amputations to right pinky toe, left big toe Psychosocial/ Personal History: Patient is retired, lives with his and children - Family History Father Medical History: Diabetes, Other (see notes) Notes: Stroke - Social History Smoking Status: Unknown if ever smoked Alcohol use: No CD- Drugs: No Caffeine use: Yes Place of Residence: Home Review of Systems 10-point ROS is otherwise unremarkable Gastrointestinal: Nausea, Vomiting Physical Examination Temp Pulse Resp BP Pulse Ox 97.1 F 83 18 182/96 H 09/09/24 03:11 09/09/24 06:01 09/09/24 06:01 09/09/24 06:01 General: Alert, In no apparent distress, Oriented x3 HEENT: Atraumatic, PERRLA Neck: Supple, 2+ carotid pulse no bruit Respiratory: Clear to auscultation bilaterally, Normal air movement Cardiovascular: Regular rate/rhythm, Normal S1 S2 Gastrointestinal: Normal bowel sounds, No tenderness Musculoskeletal: No tenderness Integumentary: No rashes Neurological: Normal gait, Normal speech Laboratory Data (last 24 hrs) 09/09/24 09/09/24 03:15 03:15 WBC 5.70 Hgb 11.5 L Hct 34.2 L Plt Count 320 Sodium 136 Potassium 3.1 L BUN 5 L Creatinine 0.96 Glucose 179 H Total Bilirubin 0.3 AST 20 ALT 17 Alkaline Phosphatase 114 Lipase 130 H Conclusions/Impression: Problem List: Intractable nausea and vomiting secondary to gastric cancer History of stomach cancer being treated at [facility] Hypokalemia Hypertensive urgency Went to bedside to evaluate patient, he stated that he did not want to be admitted to the hospital. We discussed his ongoing intractable nausea and vomiting and he stated that he would rather go home and take his medications. He has an appointment at [facility] at 8 PM to finish his chemotherapy he is currently on. Patient declined admission to hospital and will be discharged from the emergency department. Time Spent Managing Pts care (In Minutes): 37
== END 2024-09-09 08:15 | disposition home or self-care (01) ==
LOC: ER 02:50
DX: R11.2 Nausea with vomiting, unspecified (principal); C78.89 Secondary malignant neoplasm of other digestive organs; C64.9 Malignant neoplasm of unspecified kidney, except renal pelvis; E87.6 Hypokalemia; I16.0 Hypertensive urgency; I10 Essential (primary) hypertension; E11.9 Type 2 diabetes mellitus without complications; Z95.1 Presence of aortocoronary bypass graft; Z79.4 Long term (current) use of insulin; Z79.82 Long term (current) use of aspirin
CPT/HCPCS: 96361; 85025; 36415; 83690; 80053; 74177; 96375; 96374; 99285; Q9967; J2550; J2765; J7030

== ENCOUNTER 2024-09-14 02:46 | Emergency (ER) | payer OTHER ==
--- OUTSIDE RECORDS SUMMARY | 2024-09-14 02:54 | XMS REPORT | Clinical Summary ---
Author Name Unknown Organization [facility] Address [address] [place] [address] Care Team Providers Care Grain Cleaner Name Role Phone Margoth Souza MD Primary Care Provider [phone] Mary Jane Cassidy MD Unavailable [phone] Barry He MD Unavailable Patience Hunt MD Unavailable Eagle Zhu DO Unavailable [phone] Marianela Hutchinson MD Unavailable [phone] Margoth Souza MD Unavailable Ceci Nicholson MD Unavailable [phone] Marianela Hutchinson MD Primary Care Provider [phone] Sigifredo Davenport MD Unavailable Abilio Ng-C Unavailable [phone] Allergies No known active allergies Medications insulin [...] by Tylenol). 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 01/02/2024 04/14/2024 Diabetic ketoacidosis 2023 Overview (01/01/2024): Hospitalized locally 12/03/2023-12/06/2023 Encounters Date Type Department Care Team Description 09/09/2024 6:30 PM CDT [facility]fusion [facility] [place] [facility] [address] [facility], 8th [place] [address] Marianela Hutchinson MD Balason, Adda Rica F, RN Adenocarcinoma of stomach (Primary Dx) 09/09/2024 Travel 09/07/2024 4:30 PM CDT Infusion Ambulatory Treatment [place] - Blue [facility] [address] [facility], 8th [place] [address] Marianela Hutchinson MD Castillo, Emmanuel, RN Adenocarcinoma of stomach (Primary Dx); Iron deficiency anemia, not otherwise specified 09/07/2024 1:00 PM CDT [facility] [address] [place] [address], [address] [place] [address] Marianela Hutchinson MD Adenocarcinoma of stomach (Primary Dx) 09/07/2024 10:41 AM CDT - 09/07/2024 11:59 PM CDT Hospital Encounter [facility] [address] [place] [address] Marianela Hutchinson MD Adenocarcinoma of stomach Discharge Disposition: Home 09/07/2024 Orders Only [facility] [address] [place] [address], [address] [place] [address] Marianela Hutchinson MD Adenocarcinoma of stomach (Primary Dx) 09/07/2024 Orders Only [facility] [address] [place] [address] Radha Castellon, [facility] Adenocarcinoma of stomach (Primary Dx); Iron deficiency anemia, not otherwise specified 09/07/2024 Travel 08/26/2024 7:41 PM CDT - 08/26/2024 11:59 PM CDT Hospital Encounter Ambulatory Treatment Center - Main [address], 2nd Floor, [place] [address] Marianela Hutchinson MD Le, Lam, RN Adenocarcinoma of stomach (Primary Dx) Discharge Disposition: Home 08/24/2024 1:40 PM CDT [facility] [address] [place] [address], 7th [place] [address] Marianela Hutchinson MD Adenocarcinoma of stomach 08/24/2024 12:42 PM CDT - 08/24/2024 11:59 PM CDT Hospital Encounter Ambulatory Treatment Center - [address], 2nd Floor, [place] [address] Gillian Gomez PAJeanC Teena Post RN Adenocarcinoma of stomach (Primary Dx) Discharge Disposition: Home 08/24/2024 11:16 AM CDT - 08/24/2024 12:41 PM CDT Hospital Encounter [facility] [address] [place] [address] Gillian Gomez, PAKori Adenocarcinoma of stomach Discharge Disposition: Home 08/24/2024 Orders Only [facility] [address] [place] [address], 7th [place] [address] Marianela Hutchinson MD Adenocarcinoma of stomach (Primary Dx) 08/24/2024 Telephone [facility] [address] [place] [address], 7th [place] [address] Mony Saavedra, ARTURO 08/24/2024 Orders Only [facility] [address] [place] [address], 7th [place] [address] Radha Castellon, [facility] Adenocarcinoma of stomach (Primary Dx) 08/24/2024 Travel 08/24/2024 Orders Only Ambulatory Treatment Center - [address], 2nd Floor, [place] [address] Marianela Hutchinson MD Adenocarcinoma of stomach (Primary Dx) 08/21/2024 Telephone [facility] [address], 7th [place] [address] Milagros Rogers RN 08/17/2024 Orders Only [facility] [address] Bldg, 7th [place] [address] Gillian Gomez PA-C Adenocarcinoma of stomach (Primary Dx) 08/06/2024 Orders Only [facility] [address], 7th [place] [address] Radha Castellon RPH 07/22/2024 Orders Only Ambulatory Treatment Center - Blue [address] [facility], 8th [place] [address] Marianela Hutchinson MD Adenocarcinoma of stomach (Primary Dx) 07/21/2024 Telephone Ambulatory Treatment Center - Blue [address] [facility], 8th [place] [address] Rosanna Álvarez, ARTURO Chemotherapy Teaching 07/16/2024 2:40 PM TAPERING MACHINE OPERATOR [facility] [address] [facility] Main dg, 7th [place] [address] Marianela Hutchinson MD Adenocarcinoma of stomach (Primary Dx) 07/16/2024 Orders Only Gastrointestinal Center [facility] Main Bldg, 7th [place] [address] Marianela Hutchinson MD Adenocarcinoma of stomach (Primary Dx) 07/16/2024 Orders Only [facility] [address] [facility] Main Bldg, 7th [place] [address] Radha Castellon, [facility] Adenocarcinoma of stomach (Primary Dx) 07/16/2024 Travel 07/15/2024 10:08 AM TAPERING MACHINE OPERATOR - 07/15/2024 11:59 PM TAPERING MACHINE OPERATOR Hospital Encounter [facility] [address], 3rd [place] [address] Mary Kay Santamaria APRN Adenocarcinoma of stomach Discharge Disposition: Home 07/15/2024 9:49 AM TAPERING MACHINE OPERATOR - 07/15/2024 10:07 AM TAPERING MACHINE OPERATOR Hospital Encounter Diagnostic Laboratory Center [facility] [place] [address] Mary Kay Santamaria APRN Adenocarcinoma of stomach Discharge Disposition: Home 07/07/2024 Orders Only [facility] [address] [place] [address] Main dg, 7th [place] [address] Gillian Gomez PA-C Adenocarcinoma of stomach (Primary Dx) 07/06/2024 Telephone [facility] - Surgical Oncology [address] [place] [address] Main [facility], 7th [place] [address] Mary Kay Santamaria, FRANK 07/06/2024 Orders Only [facility] [place] - Surgical Oncology [address] [place] [address] Main [facility], 7th [place] [address] Mary Kay Santamaria, FRANK 07/06/2024 Orders Only [facility] [address] [place] [address] Main dg, 7th [place] [address] Gillian Gomez PA-C Adenocarcinoma of stomach (Primary Dx) 07/06/2024 Multidisciplinary Visit [facility] [address] [place] [address] Main dg, 7th [place] [address] Gillian Gomez PA-C 07/06/2024 Orders Only [facility] [address] [place] [address] Main dg, 7th [place] [address] Donnell Van Adenocarcinoma of stomach (Primary Dx) 07/02/2024 11:00 AM TAPERING MACHINE OPERATOR Nutrition Clinical Nutrition For your Nutrition appointment location directions please call: Marianela Hutchinson MD Munder, Kathryn, SCOTT Left without seen 07/02/2024 10:30 AM TAPERING MACHINE OPERATOR [facility] - Surgical Oncology [address] [place] [address] Main dg, 7th [place] [address] John Fong MD Adenocarcinoma of stomach 07/02/2024 Documentation [facility] - Surgical Oncology [address] [place] [address] Main [facility], 7th [place] [address] John Fong MD 06/30/2024 3:33 PM TAPERING MACHINE OPERATOR Anesthesia Event Perioperative Evaluation and Management Center [address] [place] [address] Main [facility], 6th [place] [address] Lien Antonio RN 06/30/2024 12:25 PM TAPERING MACHINE OPERATOR Anesthesia Event Endoscopy Center [address] [place] [address] Main [facility], 5th [place] [address] Susana Kelly MD 06/30/2024 12:00 PM TAPERING MACHINE OPERATOR - 06/30/2024 12:45 PM TAPERING MACHINE OPERATOR Surgery Endoscopy Center [address] [place] [address] Main [facility], 5th [place] [address] Brandon Alcala MD DIAGNOSTIC UPPER GASTROINTESTINAL ENDOSCOPY 06/30/2024 10:15 AM TAPERING MACHINE OPERATOR - 06/30/2024 2:24 PM TAPERING MACHINE OPERATOR Hospital Encounter Endoscopy Center [address] [place] [address], 5th [place] [address] Brandon Alcala MD Adenocarcinoma of stomach Discharge Disposition: Home 06/30/2024 Travel 06/29/2024 9:00 AM TAPERING MACHINE OPERATOR Consult Perioperative Evaluation and Management [address] [place] [address], 6th [place] [address] Mary Kay Santamaria APRN Vu, Khanh D, MD Encounter for preprocedural cardiovascular examination (Primary Dx); Coronary arteriosclerosis, not otherwise specified; Cardiomyopathy, not otherwise specified; Hypertension; senior care current use of 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; Type 2 diabetes mellitus with hyperglycemia; Dyslipidemia; Hyponatremia; Hyperkalemia; Adenocarcinoma of stomach; Paroxysmal atrial fibrillation; Hyperlipidemia, not otherwise specified 06/29/2024 8:00 AM TAPERING MACHINE OPERATOR POEM Appointments Perioperative Evaluation [facility] Management Center [address] [place] [address], [facility] [place] [address] Marianela Hutchinson MD 06/29/2024 7:30 AM TAPERING MACHINE OPERATOR - 06/29/2024 11:59 PM TAPERING MACHINE OPERATOR Hospital Encounter [facility] [address] [place] [address], 2nd [place] [address] Mary Kay Santamaria APRN Adenocarcinoma of stomach Discharge Disposition: Home 06/29/2024 Travel 06/23/2024 Documentation [facility] [address] [place] [address], 7th [place] [address] Mony Saavedra, RN 06/22/2024 12:20 PM TAPERING MACHINE OPERATOR [facility] [address] [place] [address], [facility] Floor Elevator [place] [phone] Marianela Hutchinson MD Adenocarcinoma, NOS of stomach, NOS 06/22/2024 Orders Only [facility] [address] [place] [address], [facility] [place] [address] Radha Castellon [facility] 06/22/2024 Travel 06/20/2024 10:45 AM TAPERING MACHINE OPERATOR - 06/20/2024 11:59 PM TAPERING MACHINE OPERATOR Hospital Encounter Diagnostic Imaging Center [address] [place] [address], 3rd [place] [address] Adenocarcinoma, NOS of stomach, NOS; Malignant neoplasm of overlapping sites of esophagus Discharge Disposition: Home 06/20/2024 10:08 AM TAPERING MACHINE OPERATOR - 06/20/2024 10:44 AM TAPERING MACHINE OPERATOR Hospital Encounter [facility] [address] [place] [address] Gillian Gomze PA-C Adenocarcinoma, NOS of stomach, NOS Discharge Disposition: Home 06/16/2024 Telephone [facility] - Surgical Oncology [address] [place] [address], 7th [place] [address] Mary Kay Santamaria, FRANK 06/15/2024 1:30 PM TAPERING MACHINE OPERATOR Infusion Ambulatory Treatment Center - Blue [address] [facility], 8th [place] [address] Marianela Hutchinson MD Iwuh, Jorge Tyson RN Adenocarcinoma of stomach (Primary Dx); Iron deficiency anemia, not otherwise specified 06/15/2024 12:40 PM TAPERING MACHINE OPERATOR [facility] [address] [place], [place] [id number] Marianela Hutchinson MD Adenocarcinoma, NOS of stomach, NOS; Malignant neoplasm of overlapping sites of esophagus 06/15/2024 10:24 AM TAPERING MACHINE OPERATOR - 06/15/2024 11:59 PM TAPERING MACHINE OPERATOR Hospital Encounter Diagnostic Laboratory [facility] [address] [place] [address] Marianela Hutchinson MD Adenocarcinoma of stomach; Adenocarcinoma, NOS of stomach, NOS Discharge Disposition: Home 06/15/2024 Orders Only [facility] [address] [place] [address] Radha Castellon [facility] Adenocarcinoma of stomach (Primary Dx) 06/15/2024 Orders Only [facility] [address] [place] [address] Gillian Gomez PA-C 06/15/2024 Travel 06/15/2024 Telephone [facility] - Gastroenterology, Hepatology & Nutrition [address] [place], [place] [phone] Arnaldo Araujo PA-C 06/15/2024 Multidisciplinary Visit [facility] [address] [place] [address] Lakeshia Pablo PA 06/15/2024 Orders Only [facility] [address] [place] [address], [address] [place] [address] Marianela Hutchinson MD Adenocarcinoma of stomach (Primary Dx) 06/12/2024 Prep for Surgery [facility] - Gastroenterology, Hepatology & Nutrition [address] [place] [address], [address] [place] [address] Arnaldo Araujo PA-C Adenocarcinoma of stomach (Primary Dx) 06/12/2024 Telephone [facility] - Surgical Oncology [address] [place] [address], 7th [place] [address] Mary Kay Santamaria APRN 06/12/2024 Orders Only [facility] - Surgical Oncology [address] [place] [address], 7th [place] [address] Mary Kay Santamaria APRN Adenocarcinoma of stomach (Primary Dx) 06/10/2024 Orders Only [facility] - Surgical Oncology [address] [place] [address], 7th [place] [address] Mary Kay Santamaria APRN Adenocarcinoma of stomach (Primary Dx) 06/05/2024 Telephone [facility] - Gastroenterology, Hepatology & Nutrition [address] [place] [address], 7th [place] [address] Arnaldo Araujo PA-C 06/03/2024 5:30 PM TAPERING MACHINE OPERATOR Infusion Ambulatory Treatment Center - Blue [address] [facility], 8th [place] [address] Marianela Hutchinson MD Lewandowski, Teresa M RN Adenocarcinoma of stomach (Primary Dx) 06/03/2024 Travel 06/02/2024 Telephone Gastrointestinal [address], 7th [place] [address] Mony Saavedra RN 06/01/2024 1:00 PM TAPERING MACHINE OPERATOR Infusion [facility] [place] - [facility] [address] [facility], Floor 6 [place] [address] Marianela Hutchinson MD Shaik, Anna Marie B, RN Adenocarcinoma of stomach (Primary Dx); Iron deficiency anemia, not otherwise specified 06/01/2024 10:53 AM TAPERING MACHINE OPERATOR - 06/01/2024 11:59 PM TAPERING MACHINE OPERATOR Hospital Encounter [facility] [address] [place] [address] Marianela Hutchinson MD Adenocarcinoma of stomach; Iron deficiency anemia, not otherwise specified Discharge Disposition: Home 06/01/2024 Orders Only [facility] [address] [place] [address] Main [facility], 7th [place] [address] Marianela Hutchinson MD 06/01/2024 Orders Only [facility] [address] [place] [address], 7th [place] [address] Radha Castellon, [facility] Adenocarcinoma of stomach (Primary Dx); Iron deficiency anemia, not otherwise specified 06/01/2024 Travel 06/01/2024 Orders Only [facility] - Ambulatory Treatment Center [address] [facility], Floor 6 [place] [address] Marianela Hutchinson MD Adenocarcinoma of stomach (Primary Dx) 05/26/2024 Telephone [facility] - Gastroenterology, Hepatology & Nutrition [address] [place] [address], 7th [place] [address] Arnaldo Araujo PA-C 05/22/2024 Telephone [facility] - Gastroenterology, Hepatology & Nutrition [address] [place] [address], 7th [place] [address] Arnaldo Araujo PA-C 05/22/2024 Orders Only [facility] - Gastroenterology, Hepatology & Nutrition [address] [place] [address], 7th [place] [address] Arnaldo Araujo PA-C Candidal esophagitis (Primary Dx) 05/20/2024 4:30 PM TAPERING MACHINE OPERATOR - 05/20/2024 11:59 PM TAPERING MACHINE OPERATOR Hospital Encounter Ambulatory Treatment Center - [address], 2nd Floor, [place] [address] Marianela Hutchinson MD Lewandowski, Teresa M, RN Adenocarcinoma of stomach Discharge Disposition: Home 05/19/2024 12:44 PM TAPERING MACHINE OPERATOR Anesthesia Event Endoscopy Center [address] [place] [address], 5th [place] [address] Maurice Ferrera MD Thomas, Ashly [facility] 05/19/2024 12:00 PM TAPERING MACHINE OPERATOR - 05/19/2024 1:10 PM TAPERING MACHINE OPERATOR Surgery [facility]oscopy Center [address] [place] [address], 5th [place] [address] Brandon Alcala MD UPPER GASTROINTESTINAL ENDOSCOPY OF ESOPHAGUS, STOMACH, OR DUODENUM ANDJ ADJACENT STRUCTURES, WITH ENDOSCOPIC ULTRASOUND EXAMINATION 05/19/2024 11:17 AM TAPERING MACHINE OPERATOR - 05/19/2024 2:49 PM TAPERING MACHINE OPERATOR Hospital Encounter Endoscopy Center [address] [place] [address], 5th [place] [address] Brandon Alcala MD Adenocarcinoma of stomach Discharge Disposition: Home 05/19/2024 Travel 05/18/2024 1:00 PM TAPERING MACHINE OPERATOR Infusion [facility] [place] - Ambulatory Treatment Center [address] [facility] [place], Floor 6 [place] [address] Marianela Hutchinson MD Rupp, Alexa B, RN Adenocarcinoma of stomach (Primary Dx) 05/18/2024 12:20 PM TAPERING MACHINE OPERATOR [facility] [address] [place] [address], 7th [place] [address] Marianela Hutchinson MD Adenocarcinoma, NOS of stomach, NOS 05/18/2024 11:00 AM TAPERING MACHINE OPERATOR POEM Appointments Perioperative Evaluation and Management Center [address] [place] [address], 6th [place] [address] Marianela Hutchinson MD 05/18/2024 10:32 AM TAPERING MACHINE OPERATOR - 05/18/2024 11:59 PM TAPERING MACHINE OPERATOR Hospital Encounter Diagnostic Laboratory [facility] [address] [place] [address] Gillian Gomez PA-C Adenocarcinoma, NOS of stomach, NOS Discharge Disposition: Home 05/18/2024 Orders Only [facility] [address] [place] [address], [address] [place], [place] [address] [address] Marianela Hutchinson MD Adenocarcinoma of stomach (Primary Dx) 05/18/2024 Orders Only [facility] [address] [place] [address], [address] [place], [place] [address] [address] Radha Castellon [facility] Adenocarcinoma of stomach (Primary Dx); Iron deficiency anemia, not otherwise specified 05/18/2024 Travel 05/15/2024 11:59 PM TAPERING MACHINE OPERATOR Anesthesia Event Perioperative Evaluation and Management Center [facility], 6th [place] [address] Eri Lynne, RN 05/06/2024 5:30 PM TAPERING MACHINE OPERATOR Infusion Ambulatory Treatment [facility] - [facility] [address] [facility], 8th [place] [address] Marianela Hutchinson MD Pagara, Leni S, RN Adenocarcinoma of stomach 05/04/2024 12:36 PM TAPERING MACHINE OPERATOR - 05/04/2024 11:59 PM TAPERING MACHINE OPERATOR Hospital Encounter Ambulatory Treatment [place] [facility] [address] [place] [address], 2nd Floor, [place] [address] Gillian Gomez PA-C Jo, Edifia Sungsoon, RN Adenocarcinoma of stomach (Primary Dx) Discharge Disposition: Home 05/04/2024 12:20 PM TAPERING MACHINE OPERATOR [facility] [address] [place] [address], 7th [place] [address] Marianela Hutchinson MD Adenocarcinoma, NOS of stomach, NOS 05/04/2024 11:10 AM TAPERING MACHINE OPERATOR - 05/04/2024 12:35 PM TAPERING MACHINE OPERATOR Hospital Encounter Diagnostic [facility] [address] [place] [address] Gillian Gomez PA-C Adenocarcinoma, NOS of stomach, NOS; Adenocarcinoma of stomach Discharge Disposition: Home 05/04/2024 Orders Only [facility] [address] [place] [address], 7th [place] [address] Marianela Hutchinson MD Adenocarcinoma of stomach (Primary Dx) 05/04/2024 Orders Only [facility] [address] [place] [address], 7th [place] [address] Radha Castellon RPH Adenocarcinoma of stomach (Primary Dx) 05/04/2024 Travel 04/30/2024 Orders Only [facility] - Surgical Oncology [address] [place] [address], 7th [place] [address] Mary Kay Santamaria APRN Adenocarcinoma of stomach (Primary Dx); Paroxysmal atrial fibrillation; Hyperlipidemia, not otherwise specified; Type 2 diabetes mellitus with hyperglycemia 04/27/2024 8:05 PM TAPERING MACHINE OPERATOR Ancillary Procedure [facility] [address] [place] [address] Cancer 04/27/2024 8:00 PM TAPERING MACHINE OPERATOR Ancillary Procedure [facility] [address] [place] [address] Cancer 04/27/2024 Orders Only [facility] [address] [place] [address], [address] [place], [place] [address] [place] [address] Donnell Van Adenocarcinoma of stomach (Primary Dx) 04/24/2024 Documentation V[facility] Access and Procedures Center [address] [facility], 8th [place] [address] Mary Kay Santamaria APRN 04/24/2024 Orders Only [facility] - Surgical Oncology [address] [place] [address], [facility] [place] [address] Mary Kay Santamaria APRN Adenocarcinoma, NOS of stomach, NOS (Primary Dx) 04/24/2024 Telephone [facility] - Surgical Oncology [address] [place] [address], [address] [place] [address] [place] [address] Mary Kay Santamaria APRN 04/22/2024 Lab Requisition [facility] Sincere Moralez MD Jain, Shilpa, MD 04/21/2024 Orders Only [facility] [address] [place] [address], [facility] [place] [address] Gillian Gomez PA-C Adenocarcinoma, NOS of stomach, NOS (Primary Dx); Adenocarcinoma of stomach 04/16/2024 Telephone [facility] PHYSICIAN [address] [place] [address] 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 RN Discharge Call 04/15/2024 10:09 AM TAPERING MACHINE OPERATOR Anesthesia Event MAIN OR [address] [place] [address] Meenakshi Crowe MD Miller, Wendy, CRNA 04/15/2024 10:05 AM TAPERING MACHINE OPERATOR - 04/15/2024 1:25 PM TAPERING MACHINE OPERATOR Surgery MAIN OR [address] [place] [address] John Fong MD ROBOTIC ASSISTED SURGICAL LAPAROSCOPY 04/15/2024 7:32 AM TAPERING MACHINE OPERATOR - 04/15/2024 11:50 PM TAPERING MACHINE OPERATOR Hospital Encounter MAIN OR [address] [place] [address] John Fong MD Adenocarcinoma of stomach (Primary Dx) Discharge Disposition: Home 04/15/2024 Travel 04/14/2024 2:30 PM TAPERING MACHINE OPERATOR Consult [facility] - Surgical Oncology [address] [place] [address] Main dg, 7th [place] [address] Gillian Gomez PA-C Badgwell, Brian, MD Adenocarcinoma, NOS of stomach, NOS (Primary Dx); Nausea 04/14/2024 Documentation [facility] - Surgical Oncology [address] [place] [address] Main dg, 7th [place] [address] John Fong MD 04/13/2024 3:00 PM TAPERING MACHINE OPERATOR Consult [facility] [address] [place] [address] Main dg, 7th Floor Elevator A [place] [address] Marianela Hutchinson MD Mass of stomach (Primary Dx) 04/13/2024 2:02 PM TAPERING MACHINE OPERATOR Anesthesia Event [facility] [address] [place] [address] Main [facility], 6th [place] [address] Curtis Moctezuma PA 04/12/2024 8:22 AM TAPERING MACHINE OPERATOR - 04/12/2024 3:42 PM TAPERING MACHINE OPERATOR Hospital Encounter MAIN P06B [address] [place] [address] Nghia Zhu MD Elsayem, Ahmed, MD Nausea and vomiting (Primary Dx); Gastric cancer; Pancreatitis Discharge Disposition: Left Against Medical Advice 04/12/2024 Travel 04/09/2024 8:25 PM TAPERING MACHINE OPERATOR Ancillary Procedure [facility] [address] [place] [address] Margoth Souza MD Cancer 04/09/2024 8:20 PM TAPERING MACHINE OPERATOR Ancillary Procedure [facility] [address] [place] [address] Margoth Souza MD Cancer 04/09/2024 8:15 PM TAPERING MACHINE OPERATOR Ancillary Procedure [facility] [address] [place] [address] Margoth Souza MD Cancer 04/09/2024 8:10 PM TAPERING MACHINE OPERATOR Ancillary Procedure [facility] [address] [place] [address] Margoth Souza MD Cancer 04/09/2024 8:05 PM TAPERING MACHINE OPERATOR Ancillary Procedure [facility] [address] [place] [address] Margoth Souza MD Cancer 04/09/2024 8:00 PM TAPERING MACHINE OPERATOR Ancillary Procedure [facility] [address] [place] [address] Margoth Souza MD Cancer 04/09/2024 10:48 AM TAPERING MACHINE OPERATOR - 04/09/2024 11:59 PM TAPERING MACHINE OPERATOR Hospital Encounter [facility] [address] [place] [address] Ceci Nicholson MD Encounter for other preprocedural examination; Atherosclerosis of coronary 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, not otherwise specified; 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 Discharge Disposition: Home 04/09/2024 10:00 AM TAPERING MACHINE OPERATOR POEM Appointments [facility] [address] [place] [address], 6th [place] [address] Margoth Souza MD 04/09/2024 9:56 AM TAPERING MACHINE OPERATOR - 04/09/2024 10:47 AM TAPERING MACHINE OPERATOR Hospital Encounter [facility] [address] [place] [address], 2nd [place] [address] Ceci Nicholson MD Adenocarcinoma of stomach; Hyperlipidemia, not otherwise specified; Encounter for other preprocedural examination; Atherosclerosis of coronary 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, not otherwise specified Discharge Disposition: Home 04/09/2024 9:00 AM TAPERING MACHINE OPERATOR Consult Perioperative Evaluation and Management [facility], [facility] [place] [address] Mary Kay Santamaria APRN Misoi, Mercy W, MD Encounter for other preprocedural examination (Primary Dx); Adenocarcinoma of stomach; Paroxysmal atrial fibrillation; Hypertension; 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; Hyperlipidemia, not otherwise specified; Current use of 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; Atherosclerosis of coronary 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, not otherwise specified 04/09/2024 Travel 04/08/2024 Prep for Surgery [facility] [address] [place] [address], [address] [place], [place] [address] [address] Mary Kay Santamaria APRN Adenocarcinoma of stomach (Primary Dx); Mass of stomach 04/08/2024 Orders Only [facility] [address] [place] [address], [address] [place] [address] Mary Kay Santamaria APRN Adenocarcinoma of stomach (Primary Dx); Paroxysmal atrial fibrillation; Hypertension; 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; Hyperlipidemia, not otherwise specified; Current use of 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 04/08/2024 Orders Only [facility] [address] [place] [address], [address] [place] [address] [place] [address] Gillian Gomez PA-C Adenocarcinoma, NOS of stomach, NOS (Primary Dx) 04/06/2024 Orders Only [facility] [address] [place] [address], 7th [place] [address] Roberto Poole PA 04/06/2024 Orders Only [facility] [address] [place] [address], [facility] [place] [address] Roberto Poole PA Mass of stomach (Primary Dx) 04/06/2024 Orders Only [facility] [address] [place] [address], 7th [place] [address] Roberto Poole PA Mass of stomach (Primary Dx) 04/06/2024 Telephone [facility] [address] [place] [address], 7th [place] [address] Anais Meng RN 02/11/2024 Travel 02/10/2024 3:30 PM CDT Telemedicine [facility] [address] [place] [address], 7th [place] [address] Margoth Souza MD Renal mass (Primary Dx) 01/02/2024 7:15 AM CDT Ancillary Procedure MAIN OR [address] [place], [place] [phone] Margoth Souza MD 01/02/2024 7:00 AM CDT - 01/02/2024 11:40 AM CDT Surgery MAIN OR [address] [place] [address] Margoth Souza MD ROBOTIC ASSISTED PARTIAL NEPHRECTOMY 01/02/2024 6:58 AM CDT Anesthesia Event MAIN OR [address] [place] [address] Alonzo Liu MD Majekodumi, Jessy, CRNA 01/02/2024 5:04 AM CDT - 01/03/2024 5:05 PM CDT Hospital Encounter MAIN P09B [address] [place], [place] [phone] Margoth Souza MD Renal mass (Primary Dx) Discharge Disposition: Home 01/02/2024 Travel 12/31/2023 1:04 PM CDT - 12/31/2023 11:59 PM CDT Hospital Encounter CT [facility] [address] [place] [address], 3rd Floor Elevator [place] [phone] Margoth Souza MD Renal mass Discharge Disposition: Home 12/31/2023 8:00 AM CDT Consult Endocrine Center [address] [place] [address], 6th Floor Elevator [place] [phone] Young-Nakia Santana APRN Khan, Sonya, MD Type 2 diabetes mellitus with hyperglycemia [E11.65] (Primary Dx); Pre-surgery evaluation 12/30/2023 9:30 AM CDT Office Visit [facility] [address] [place] [address], 7th [place] [address] Margoth Souza MD Renal mass 12/30/2023 Travel 12/30/2023 Telephone Endocrine Center [address] [place] [address] Winnie Archibald, RN Appointment (Cannot get internet-phone broke) 12/30/2023 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); Endocrine/metabolic screening; Renal cell carcinoma <Left side> 12/25/2023 8:36 AM CDT Anesthesia Event [facility] [address] [place] [phone] Lien Antonio, RN 12/23/2023 10:30 AM CDT Consult Perioperative Evaluation and Management [address] [place] [address] Margoth Souza MD Oh, Jeong, MD Encounter for other preprocedural examination (Primary Dx); Renal mass; Hyperlipidemia, not otherwise specified 12/23/2023 9:00 AM CDT POEM Appointments [facility] [address] [place] [phone] Margoth Souza MD Pre-surgery evaluation (Primary Dx) 12/23/2023 8:45 AM CDT - 12/23/2023 11:59 PM CDT Hospital Encounter [facility] [place] [address] Margoth Souza MD Renal mass Discharge Disposition: Home 12/23/2023 Travel 12/09/2023 9:33 AM CDT - 12/09/2023 11:59 PM CDT Hospital Encounter [facility] [place] [address] Veronica Del Castillo APRN 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; Endocrine/metabolic screening Discharge Disposition: Home 12/09/2023 8:30 AM CDT Consult Endocrine Center [facility], 6th [place] [address] Mary Jane Cassidy MD 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); Endocrine/metabolic screening; Renal cell carcinoma <Left side> 12/09/2023 Travel 10/23/2023 Orders Only [facility] [address] [place] [address], 7th [place] [address] Roberto Poole PA Renal mass (Primary Dx); Adrenal mass 10/03/2023 9:30 AM CDT - 10/03/2023 11:59 PM CDT Hospital Encounter Interventional Radiology [address] [place] [address], 4th [place] [address] Shazia Arriaza MD McRae, Stephen, MD Renal mass Discharge Disposition: Home 10/03/2023 8:30 AM CDT - 10/03/2023 9:29 AM CDT Hospital Encounter [facility] [address] [place] [address] Margoth Souza MD Renal mass Discharge Disposition: Home 10/03/2023 Travel 10/02/2023 8:24 AM CDT - 10/02/2023 11:59 PM CDT Hospital Encounter Interventional Radiology [address] [place] [address], 4th [place] [address] Margoth Souza MD Ho, [facility] Justina, PA-C Encounter for other preprocedural examination (Primary Dx); Renal mass; 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 Discharge Disposition: Home 10/02/2023 Travel 09/24/2023 7:46 AM CDT - 09/24/2023 11:59 PM CDT Hospital Encounter [facility] [address] [place] [address] Roberto Poole PA Adrenal mass Discharge Disposition: Home 09/20/2023 Orders Only [facility] [address] [place] [address], 7th [place] [address] Roberto Poole PA Adrenal mass (Primary Dx) 09/19/2023 11:45 AM CDT Ancillary Procedure X-Ray Outpatient Center [address] [place] [address], [address] [place] [phone] Shazia Arriaza MD Renal mass 09/19/2023 9:20 AM CDT - 09/19/2023 11:59 PM CDT Hospital Encounter [facility] [address] [place] [address] Shazia Arriaza MD Adenoma, NOS of adrenal gland, NOS <Left> Discharge Disposition: Home 09/19/2023 Orders Only Interventional Radiology [address] [place] [address], 4th [place] [address] Abilio Ng PA-C Renal mass (Primary Dx) 09/19/2023 Travel 09/19/2023 Telephone [facility] [address] [place] [address] Barbara Rees MA 09/16/2023 4:00 PM CDT - 09/16/2023 11:59 PM CDT Hospital Encounter [facility] [address] [place] [address] Shazia Arriaza MD Renal mass; Adrenal mass Discharge Disposition: Home 09/16/2023 2:00 PM CDT Office Visit [facility] [address] [place] [address], 7th [place] [address] Margoth Souza MD Renal mass (Primary Dx); Adrenal mass; Adenoma, NOS of adrenal gland, NOS <Left>; 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 09/16/2023 12:30 PM CDT NPR MDA PATIENT ACCESS 09/16/2023 Travel after 09/15/2023 Surgical History Surgery Date Site/Laterality Comments TOE AMPUTATION x2, 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, 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 APPENDECTOMY 05/20/1973 - 05/19/1974 Open WRIST SURGERY Left HAND SURGERY Right HIP ARTHRODESIS W/ ILIAC CRE ST BONE GRAFT Bilateral For hand surgeries CERVICAL SPINE SURGERY C3-6 fusion, x2 RI LAPAROSCOPY SURG PARTIAL NEPHRECTOMY 01/02/2024 Abdomen/Left Procedure: ROBOTIC ASSISTED PARTIAL NEPHRECTOMY; Surgeon: Margoth Souza MD; Location: MAIN OR; Service: UROLOGY RI ULTRASONIC GUIDANCE INTRAOPERATIVE 01/02/2024 Left Procedure: INTROPERATIVE ULTRASOUND - PERFORMED BY SURGEON; Surgeon: Margoth Souza MD; Location: MAIN OR; Service: UROLOGY CORONARY ARTERY BYPASS GRAFT 01/07/2024 RI LAPS ABD PRTM&OMENTUM DX W/WO SPEC BR/WA SPX 04/15/2024 Abdomen/N/A Procedure: ROBOTIC ASSISTED SURGICAL LAPAROSCOPY; Surgeon: John Fong MD; Location: MAIN OR; Service: SURG ONC - GASTRIC/HIPEC Medical devices from this surgery are in the Medical Devices section. RI FLUORO CENTRAL VENOUS ACC ESS DEV PLACEMENT 04/15/2024 Neck/N/A Procedure: FLUORO GUIDANCE FOR CENTRAL VENOUS ACCESS DEVICE PLACEMENT, REPLACEMENT, OR REMOVAL; Surgeon: John Fong MD; Location: MAIN OR; Service: SURG ONC - GASTRIC/HIPEC Medical devices from this surgery are in the Medical Devices section. RI US VASC ACCESS SITS VSL P ATENCY NDL ENTRY 04/15/2024 N/A Procedure: US GUIDANCE WITH EVAL OF POTENTIAL ACCESS SITES, REALTIME US VISUALIZATION OF VASC NEEDLE ENTRY; Surgeon: John Fong MD; Location: MAIN OR; Service: SURG ONC - GASTRIC/HIPEC Medical devices from this surgery are in the Medical Devices section. RI INSJ TUNNELED CTR VAD W/S UBQ PORT AGE 5 YR/> 04/15/2024 Neck/N/A Procedure: PORT-A-CATH PLACEMENT; Surgeon: John Fong MD; Location: MAIN OR; Service: SURG ONC - GASTRIC/HIPEC Medical devices from this surgery are in the Medical Devices section. 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 Gender Identity Not on file Sexual Orientation Not on file Occupation Industry Job Start Date Job End Date retired from [employer] Not on file N ot on file Not on file Travel History Travel Start Travel End [place] 04/12/2024 04/12/2024 Obstetrics History Last Filed Vital Signs Vital Sign Reading Time Taken Comments Blood Pressure 157/90 09/09/2024 7:07 PM CDT Pulse 71 09/09/2024 7:07 PM CDT Temperature 36.8 °C (98.2 °F) 09/09/2024 7:07 PM CD T Respiratory Rate 18 09/09/2024 7:07 PM CDT Oxygen Saturation 98% 09/09/2024 7:07 PM CDT Inhaled Oxygen Concentration - - Weight 83.3 kg (183 lb 10.3 oz) 09/09/2024 7:07 PM CDT Height 188 cm (6' 2") 05/19/2024 11:53 AM TAPERING MACHINE OPERATOR Body Mass Index 23.58 05/19/2024 11:53 AM TAPERING MACHINE OPERATOR Plan of Treatment Upcoming Encounters Date Type Department Care Team (Late st Contact Info) Description 09/21/2024 1:45 PM CDT Appointment Diagnostic [facility] [address] [place] [address] Marianela Hutchinson MD [address] [place] [phone] [email or web address] 09/21/2024 2:20 PM CDT Follow-Up [facility]astro[facility] Center [address] [place] [address], 7th [place] [address] Marianela Hutchinson MD [address] [place] [phone] [email or web address] 09/21/2024 4:30 PM CDT Infusion [facility] [address] [facility], 8th [place] [address] Marianela Hutchinson MD [address] [place] [phone] [email or web address] 09/23/2024 3:45 PM CDT Infusion [facility] [place] [facility] [address] [facility], Floor 6 [place] [address] Marianela Hutchinson MD [address] [place] [phone] [email or web address] 10/05/2024 11:45 AM CDT Appointment [facility] [address] [place] [address] Marianela Hutchinson MD [address] [place] [phone] [email or web address] 10/05/2024 1:45 PM CDT Infusion [facility] [address] [place] [address], 8th [place] [address] Marianela Hutchinson MD [address] [place] [phone] [email or web address] 10/19/2024 9:30 AM CDT Infusion [facility] [address] [place] [address], 8th [place] [address] Marianela Hutchinson MD [address] [place] [phone] [email or web address] 11/16/2024 9:45 AM CDT Appointment [facility] [address] [place] [address] Marianela Hutchinson MD [address] [place] [phone] [email or web address] 02/01/2025 11:30 AM CDT Appointment [facility] [address] [place] [phone] Aym Del Castilloun, BUSINESS SERVICES ASSOCIATE [address] [place] [address] [email or web address] 02/01/2025 11:[address] Imaging [facility] Diagnostic Imaging [address] [place] [address], 3rd [place] [address] Abundio Amyun, BUSINESS SERVICES ASSOCIATE [address] [place] [address] [email or web address] 02/01/2025 3:00 PM CDT Follow-Up Endocrine Center [address] [place] [address], 6th [place] [address] Mary Jane Cassidy MD [address] [place] [phone] [email or web address] 02/05/2025 10:45 AM CDT Lab [facility] [address] [place] [address], 7th [place] [address] Margoth Souza MD [address] [place] [phone] [email or web address] 02/05/2025 11:15 AM CDT Ancillary Procedure X-Ray Outpatient Center [address] [place] [address], 7th [place] [address] Margoth Souza MD [address] [place] [phone] [email or web address] 02/05/2025 11:55 AM CDT Ancillary Procedure CT Imaging [address] [place] [address], [facility] [place] [address] Margoth Souza MD [address] [place] [address] [email or web address] 02/08/2025 2:30 PM CDT Telemedicine [facility] [address] [facility], 7th [place] [address] Margoth Souza MD [address] [place] [address] [email or web address] Health Maintenance Due Date Last Done Comments COVID-19 Vaccine (#1) 01/09/1969 Pneumococcal Vaccine: 50+ Years (1 of 2 - PCV) 983 01/09/1975 Influenza Vaccine (#1) 2024 08/04/2018 Medical Devices Implanted Type Area Research Greenhouse Supervisor Device Identifier Shelf Expiration Date Model / Serial / Lot Slade Muhammad 6fr - [id number] Implanted:Qty: 1 on 04/15/2024 by John Fong MD at [facility] Implant Right: Neck BARD [employer]ESS SYSTEMS 12/17/2024 [id number] / / [id number] Procedures Procedure Name Priority Date/Time Associated Diagnosis [...] PELVIS W CONTRAST Routine 07/15/2024 4:38 PM TAPERING MACHINE OPERATOR Adenocarcinoma of stomach .CBC Routine 07/15/2024 10:01 AM TAPERING MACHINE OPERATOR Adenocarcinoma of stomach CARCINOEMBRYONIC ANTIGEN Routine 025 10:01 AM TAPERING MACHINE OPERATOR Adenocarcinoma of stomach LACTATE DEHYDROGENASE Routine 07/15/2024 10:01 AM TAPERING MACHINE OPERATOR Adenocarcinoma of stomach PHOSPHORUS LEVEL Routine 07/15/2024 10:01 AM TAPERING MACHINE OPERATOR Adenocarcinoma of stomach MAGNESIUM LEVEL Routine 07/15/2024 10:01 AM TAPERING MACHINE OPERATOR Adenocarcinoma of stomach COMPREHENSIVE METABOLIC PANEL Routine 10:01 AM TAPERING MACHINE OPERATOR Adenocarcinoma of stomach COMPLETE BLOOD COUNT W/ DIFFERENTIAL Routine 07/15/2024 10:01 AM TAPERING MACHINE OPERATOR Adenocarcinoma of stomach RESEARCH PROTOCOL [id number] Routine 07/15 10:01 AM TAPERING MACHINE OPERATOR Adenocarcinoma of stomach MDA AP IHC WORKUP Routine 07/07/2024 12:29 PM TAPERING MACHINE OPERATOR Adenocarcinoma of stomach POC GLUCOSE SCREEN Routine 06/30/2024 1:23 PM TAPERING MACHINE OPERATOR PATHOLOGY BIOPSY INTERPRETATION Routine 06/30/2024 12:51 PM TAPERING MACHINE OPERATOR Adenocarcinoma of stomach RI ESOPHAGOGASTRODUODENOSCOP Y TRANSORAL DIAGNOSTIC 06/30/2024 12:15 PM TAPERING MACHINE OPERATOR Adenocarcinoma of stomach Case Notes 06/12 per gene to schedule on 06/30, per tor to schedule 06/30 thru lunch last AM case, slot held to offer. LVM and sent mychart to schedule-DC Special Needs AEROBICS TEACHER CHRIS COMPLETE 06/18.AEROBICS TEACHERARTUOR PEREZ LVM FOR DAUGHTER WITH DETAILED INSTRUCTIONS FOR PROCEDURE IN ADDITION TO HOLD ON PLAVIX FOR 5 DAYS.AEROBICS TEACHERARTURO HERNANDEZ 1ST CALL 06/16. POC CHEM 8 Routine 06/30/2024 11:10 AM TAPERING MACHINE OPERATOR POC GLUCOSE SCREEN Routine 06/30/2024 10:52 AM TAPERING MACHINE OPERATOR POC CHEM 8 Routine 06/29/2024 9:54 AM TAPERING MACHINE OPERATOR EKG, 12-LEAD (SCHEDULED) Routine 06/29/2024 Adenocarcinoma of stomach PETCT F18 FDG (FLUORODEOXYGLUCOSE) WITH CONTRAST Routine 06/20/2024 12:42 PM TAPERING MACHINE OPERATOR Adenocarcinoma, NOS of stomach, NOS Malignant neoplasm of overlapping sites of esophagus POC GLUCOSE SCREEN Routine 06/20/2024 11:06 AM TAPERING MACHINE OPERATOR .CBC Routine 06/20/2024 10:35 AM TAPERING MACHINE OPERATOR Adenocarcinoma, NOS of stomach, NOS CARCINOEMBRYONIC ANTIGEN Routine 025 10:35 AM TAPERING MACHINE OPERATOR Adenocarcinoma, NOS of stomach, NOS LACTATE DEHYDROGENASE Routine 06/20/2024 10:35 AM TAPERING MACHINE OPERATOR Adenocarcinoma, NOS of stomach, NOS PHOSPHORUS LEVEL Routine 06/20/2024 10:35 AM TAPERING MACHINE OPERATOR Adenocarcinoma, NOS of stomach, NOS MAGNESIUM LEVEL Routine 06/20/2024 10:35 AM TAPERING MACHINE OPERATOR Adenocarcinoma, NOS of stomach, NOS COMPREHENSIVE METABOLIC PANEL Routine 10:35 AM TAPERING MACHINE OPERATOR Adenocarcinoma, NOS of stomach, NOS COMPLETE BLOOD COUNT W/ DIFFERENTIAL Routine 06/20/2024 10:35 AM TAPERING MACHINE OPERATOR Adenocarcinoma, NOS of stomach, NOS .CBC Routine 06/15/2024 10:39 AM TAPERING MACHINE OPERATOR Adenocarcinoma of stomach CARCINOEMBRYONIC ANTIGEN Routine 025 10:39 AM TAPERING MACHINE OPERATOR Adenocarcinoma, NOS of stomach, NOS LACTATE DEHYDROGENASE Routine 06/15/2024 10:39 AM TAPERING MACHINE OPERATOR Adenocarcinoma, NOS of stomach, NOS PHOSPHORUS LEVEL Routine 06/15/2024 10:39 AM TAPERING MACHINE OPERATOR Adenocarcinoma, NOS of stomach, NOS MAGNESIUM LEVEL Routine 06/15/2024 10:39 AM TAPERING MACHINE OPERATOR Adenocarcinoma, NOS of stomach, NOS COMPREHENSIVE METABOLIC PANEL Routine 10:39 AM TAPERING MACHINE OPERATOR Adenocarcinoma of stomach COMPLETE BLOOD COUNT W/ DIFFERENTIAL Routine 06/15/2024 10:39 AM TAPERING MACHINE OPERATOR Adenocarcinoma of stomach .CBC Routine 06/01/2024 11:10 AM TAPERING MACHINE OPERATOR Adenocarcinoma of stomach TRANSFERRIN Routine 06/01/2024 11:10 AM TAPERING MACHINE OPERATOR Iron deficiency anemia, not otherwise specified Adenocarcinoma of stomach FERRITIN Routine 06/01/2024 11:10 AM TAPERING MACHINE OPERATOR Iron deficiency anemia, not otherwise specified Adenocarcinoma of stomach IRON LEVEL Routine 06/01/2024 11:10 AM TAPERING MACHINE OPERATOR Iron deficiency anemia, not otherwise specified Adenocarcinoma of stomach COMPREHENSIVE METABOLIC PANEL Routine 11:10 AM TAPERING MACHINE OPERATOR Adenocarcinoma of stomach COMPLETE BLOOD COUNT W/ DIFFERENTIAL Routine 06/01/2024 11:10 AM TAPERING MACHINE OPERATOR Adenocarcinoma of stomach POC GLUCOSE SCREEN Routine 05/19/2024 1:52 PM TAPERING MACHINE OPERATOR PATHOLOGY BIOPSY INTERPRETATION Routine 05/19/2024 1:10 PM TAPERING MACHINE OPERATOR Adenocarcinoma of stomach RI ESOPHAGOGASTRODUODENOSCOP Y US SCOPE W/ADJ STRXRS 05/19/2024 12:34 PM TAPERING MACHINE OPERATOR Adenocarcinoma of stomach Case Notes 04/24- WAITING FOR TRIAGE TO OR FOR 05/01- Special Needs AEROBICS TEACHER [place] Call Completed 04/30/24ad laproscopy on 04/15/24 POC GLUCOSE SCREEN Routine 05/19/2024 12:21 PM TAPERING MACHINE OPERATOR .CBC Routine 05/18/2024 10:55 AM TAPERING MACHINE OPERATOR Adenocarcinoma, NOS of stomach, NOS CARCINOEMBRYONIC ANTIGEN Routine 024 10:55 AM TAPERING MACHINE OPERATOR Adenocarcinoma, NOS of stomach, NOS LACTATE DEHYDROGENASE Routine 05/18/2024 10:55 AM TAPERING MACHINE OPERATOR Adenocarcinoma, NOS of stomach, NOS PHOSPHORUS LEVEL Routine 05/18/2024 10:55 AM TAPERING MACHINE OPERATOR Adenocarcinoma, NOS of stomach, NOS MAGNESIUM LEVEL Routine 05/18/2024 10:55 AM TAPERING MACHINE OPERATOR Adenocarcinoma, NOS of stomach, NOS COMPREHENSIVE METABOLIC PANEL Routine 10:55 AM TAPERING MACHINE OPERATOR Adenocarcinoma, NOS of stomach, NOS COMPLETE BLOOD COUNT W/ DIFFERENTIAL Routine 05/18/2024 10:55 AM TAPERING MACHINE OPERATOR Adenocarcinoma, NOS of stomach, NOS .CBC Routine 05/04/2024 11:34 AM TAPERING MACHINE OPERATOR Adenocarcinoma, NOS of stomach, NOS RESEARCH PROTOCOL [id number] Routine 05/04 11:34 AM TAPERING MACHINE OPERATOR Adenocarcinoma of stomach CARCINOEMBRYONIC ANTIGEN Routine 024 11:34 AM TAPERING MACHINE OPERATOR Adenocarcinoma, NOS of stomach, NOS LACTATE DEHYDROGENASE Routine 05/04/2024 11:34 AM TAPERING MACHINE OPERATOR Adenocarcinoma, NOS of stomach, NOS PHOSPHORUS LEVEL Routine 05/04/2024 11:34 AM TAPERING MACHINE OPERATOR Adenocarcinoma, NOS of stomach, NOS MAGNESIUM LEVEL Routine 05/04/2024 11:34 AM TAPERING MACHINE OPERATOR Adenocarcinoma, NOS of stomach, NOS COMPREHENSIVE METABOLIC PANEL Routine 11:34 AM TAPERING MACHINE OPERATOR Adenocarcinoma, NOS of stomach, NOS COMPLETE BLOOD COUNT W/ DIFFERENTIAL Routine 05/04/2024 11:34 AM TAPERING MACHINE OPERATOR Adenocarcinoma, NOS of stomach, NOS VERIFY CATHETER TIP PLACEMENT Routine 3:50 PM TAPERING MACHINE OPERATOR Adenocarcinoma of stomach POC GLUCOSE SCREEN Routine 04/15/2024 3:21 PM TAPERING MACHINE OPERATOR XR CHEST 1 VW PORTABLE Routine 2:45 PM TAPERING MACHINE OPERATOR POC GLUCOSE SCREEN Routine 04/15/2024 1:05 PM TAPERING MACHINE OPERATOR POC GLUCOSE SCREEN Routine 04/15/2024 12:52 PM TAPERING MACHINE OPERATOR CYTOLOGY NON-LABORATORY ASSOCIATE INTERPRETATION Routine 04/15/2024 12:33 PM TAPERING MACHINE OPERATOR Adenocarcinoma of stomach PATHOLOGY SURGICAL INTERPRETATION Routine 04/15/2024 12:13 PM TAPERING MACHINE OPERATOR Adenocarcinoma of stomach FL CENTRAL VENOUS PLACE EXCHANGE Routine 04/15/2024 11:40 AM TAPERING MACHINE OPERATOR Adenocarcinoma of stomach POC GLUCOSE SCREEN Routine 04/15/2024 9:22 AM TAPERING MACHINE OPERATOR RI INSJ TUNNELED CTR VAD W/SUBQ PORT AGE 5 YR/> 04/15/2024 9:16 AM TAPERING MACHINE OPERATOR Adenocarcinoma of stomach Special Needs MTL@0800 RI US VASC ACCESS SITS VSL PATENCY NDL ENTRY 04/15/2024 9:16 AM TAPERING MACHINE OPERATOR Adenocarcinoma of stomach Special Needs MTL@0800 RI FLUORO CENTRAL VENOUS ACCESS DEV PLACEMENT 04/15/2024 9:16 AM TAPERING MACHINE OPERATOR Adenocarcinoma of stomach Special Needs MTL@0800 RI LAPS ABD PRTM&OMENTUM DX W/WO SPEC BR/WA SPX 04/15/2024 9:16 AM TAPERING MACHINE OPERATOR Adenocarcinoma of stomach Special Needs MTL@0800 CT ABDOMEN PELVIS W CONTRAST Routine 11:18 AM TAPERING MACHINE OPERATOR .CBC Routine 04/12/2024 9:04 AM TAPERING MACHINE OPERATOR LIPASE LEVEL Routine 04/12/2024 9:04 AM TAPERING MACHINE OPERATOR AMYLASE LEVEL Routine 04/12/2024 9:04 AM TAPERING MACHINE OPERATOR LACTATE DEHYDROGENASE Routine 04/12/2024 9:04 AM TAPERING MACHINE OPERATOR FRACTIONATED BILIRUBIN Routine 9:04 AM TAPERING MACHINE OPERATOR PHOSPHORUS LEVEL Routine 04/12/2024 9:04 AM TAPERING MACHINE OPERATOR MAGNESIUM LEVEL Routine 04/12/2024 9:04 AM TAPERING MACHINE OPERATOR COMPREHENSIVE METABOLIC PANEL Routine 9:04 AM TAPERING MACHINE OPERATOR COMPLETE BLOOD COUNT W/ DIFFERENTIAL Routine 04/12/2024 9:04 AM TAPERING MACHINE OPERATOR .CBC Routine 04/09/2024 11:09 AM TAPERING MACHINE OPERATOR Encounter for other preprocedural examination Atherosclerosis of coronary 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, not otherwise specified THYROID STIMULATING HORMONE Routine 03/21 11:09 AM TAPERING MACHINE OPERATOR Encounter for other preprocedural examination Atherosclerosis of coronary 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, not otherwise specified HEMOGLOBIN A1C Routine 04/09/2024 11:09 AM TAPERING MACHINE OPERATOR 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 Encounter for other preprocedural examination COMPREHENSIVE METABOLIC PANEL Routine 11:09 AM TAPERING MACHINE OPERATOR Encounter for other preprocedural examination Atherosclerosis of coronary 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, not otherwise specified COMPLETE BLOOD COUNT W/ DIFFERENTIAL Routine 04/09/2024 11:09 AM TAPERING MACHINE OPERATOR Encounter for other preprocedural examination Atherosclerosis of coronary 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, not otherwise specified EKG, 12-LEAD (SCHEDULED) Routine 04/09/2024 Adenocarcinoma of stomach Hyperlipidemia, not otherwise specified Encounter for other preprocedural examination Atherosclerosis of coronary 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, not otherwise specified PATHOLOGY OUTSIDE INTERPRETATION Routine 04/02/[address] ABDOMEN AND PELVIS Routine 2023 8:21 AM TAPERING MACHINE OPERATOR Cancer OSI CHEST Routine 03/23/2024 7:37 PM TAPERING MACHINE OPERATOR Cancer OSI CT CHEST ABDOMEN PELVIS Routine 08/2023 7:37 PM TAPERING MACHINE OPERATOR Cancer OSI CHEST Routine 03/23/2024 7:37 PM TAPERING MACHINE OPERATOR Cancer OSI CT CHEST Routine 03/22/2024 8:21 AM TAPERING MACHINE OPERATOR Cancer OSI CT ABDOMEN AND [...] INTRAOPERATIVE US STAT 01/02/2024 7:13 AM CDT RI ULTRASONIC GUIDANCE INTRAOPERATIVE 01/02/2024 6:08 AM CDT Renal mass Special Needs [email or web address] [id number]:Please collect and send tissue to pathology window with appropriate label. RI LAPAROSCOPY SURG PARTIAL NEPHRECTOMY 01/02/2024 6:08 AM CDT Renal mass Special Needs [email or web address] [id number]:Please collect and send tissue to pathology window [...] mass 30-DAY PRE-OP TYPE & SCREEN Routine 04/2 01/2024 4:24 PM CDT Renal mass METANEPHRINES FRACTIONATED [...] 09/16/2023 4:23 PM CDT Renal mass after 09/15/2023 Results * (ABNORMAL) .CBC (09/07/2024 10:49 AM CDT) Only the most recent of13 resultswithin the time period is included. White Blood Cell 5.9 4.1 - 10.5 K/uL 09/07[facility]2024 [facility] Blood Cell 3.90(L) 4.30 - 6.04 M/uL 09/07/2024 11:02 AM [facility] Hemoglobin 9.9(L) 13.3 - 17.4 g/dL 09/07/2024 11:02 AM [facility] Hematocrit 31.5(L) 39.5 - 51.8 % 09/07/2024 11:02 AM [facility] Mean Cell Volume 81(L) 82 - 99 fL 09/07/2024 11:02 AM [facility] Mean Cell Hemoglobin 25.4(L) 26.6 - 33.2 pg 09/07/2024 11:02 AM [facility] Mean Cell Hemoglobin Concentration 31.4 31.1 - 35.2 g/dL 09/07/2024 11:02 AM [facility] RDW-SD 41.9 37.5 - 49.7 fL 09/07/2024 11:02 AM [facility] Red Cell Diameter Width 14.4 11.6 - 15.5 % 09/07/2024 11:02 AM [facility] Platelet 241 160 - 397 K/uL 09/07/2024 11:02 AM [facility] Mean Platelet Volume 9.0(L) 9.1 - 12.6 fL 09/07/2024 11:02 AM [facility] INRBC 0.0 0.0 - 0.1 /100 WBC 09/07/2024 11:02 AM [facility] Comment: The INRBC (instrument NRBC) value reflects the enumeration of nucleated red blood cells contained in a 200uL sample of whole blood analyzed by the instrument. This value may differ from the NRBC value reported in a manual differential, which is based on a 100 cell differential. Neutrophil % 62.8 43.2 - 72.7 % 09/07/2024 11:02 AM [facility] Lymphocyte % 23.6 16.8 - 46.2 % 09/07/2024 11:02 AM [facility] Monocyte % 10.3 5.1 - 12.5 % 09/07/2024 11:02 AM [facility] Eosinophil % 2.2 0.4 - 6.3 % 09/07/2024 11:02 AM CDT [facility] Basophil % 0.9 0.2 - 1.4 % 09/07/2024 11:02 AM CDT [facility] IGRE % 0.2 0.1 - 1.5 % 09/07/2024 11:02 AM CDT [facility] Comment:The IGRE% includes M etamyelocytes, Myelocytes and Promyelocytes. Neutrophil Abs 3.68 1.95 - 7.25 K/uL 09/07/2024 11:02 AM CDT [facility] Lymphocyte Abs 1.38 1.01 - 3.24 K/uL 09/07/2024 11:02 AM CDT [facility] Monocyte Abs 0.60 0.24 - 0.85 K/uL 09/07/2024 11:02 AM CDT [facility] Eosinophil Abs 0.13 0.02 - 0.50 K/uL 09/07/2024 11:02 AM CDT [facility] Basophil Abs 0.05 0.02 - 0.09 K/uL 09/07/2024 11:02 AM CDT [facility] IG Abs 0.01 0.01 - 0.12 K/uL 09/07/2024 11:02 AM CDT [facility] Blood Peripheral blood specimen / Unknown Port / Unknown 09/07/2024 10:49 AM CDT 09/07/2024 10:50 AM CDT us Marianela Hutchinson MD LAB BLOOD ORDERABLES Final Re sult [facility] Unless otherwise noted, all lab tests performed by: Division of Pathology and Laboratory Medicine [address] [place] [id number] * (ABNORMAL) Comprehensive Metabolic Panel (09/07/2024 10:49 AM CDT) Only the most recent of12 resultswithin the time period is included. Bilirubin Total <0.3 0.0 - 1.2 mg/dL 09/07/2024 11:49 AM [facility] Comment:Indocyanine Green (I CG) may cause falsely elevated bilirubin results. Total and direct bilirubin must not be measured from samples containing indocyanine green. False elevation of total bilirubin can be seen in patients with IgG concentrations above 28 g/L. eGFR 92 >=60 mL/min/1. 73 sq. m 09/07/2024 11:49 AM [facility] Comment: The eGFRcr is calculated with [...] 6.4 - 8.3 gm/dL 09/07/2024 11:49 AM [facility] Calcium Level Total 8.5 8.2 - 10.2 mg/dL 09/07/2024 11:49 AM [facility] Alkaline Phosphatase 94 40 - 129 U/L 09/07/2024 11:49 AM [facility] Albumin Level 3.4(L) 3.5 - 5.2 gm/dL 09/07/2024 11:49 AM [facility] AST 15 <=40 U/L 09/07/2024 11:49 AM [facility] ALT 9 <=41 U/L 09/07/2024 11:49 AM [facility] Sodium Level 138 136 - 145 mmol/L 09/07/2024 11:49 AM [facility] Potassium Level 3.6 3.4 - 4.5 mmol/L 09/07/2024 11:49 AM CDT [facility] Chloride 102 98 - 107 mmol/L 09/07/2024 11:49 AM CDT [facility] CO2 29 22 - 29 mmol/L 09/07/2024 11:49 AM CDT [facility] Anion Gap 7 4 - 14 mmol/L 09/07/2024 11:49 AM CDT [facility] Creatinine 0.95 0.67 - 1.17 mg/dL 09/07/2024 11:49 AM CDT [facility] BUN <4(L) 6 - 23 mg/dL 09/07/2024 11:49 AM CDT [facility] Glucose Level 150(H) 70 - 99 mg/dL 09/07/2024 11:49 AM CDT [facility] Comment: Effective 12/14/15, the glucose reference intervals have been updated based on [place] [employer] guidelines (Standards of Medical Care [...] MD LAB BLOOD ORDERABLES Final Re sult [facility] Unless otherwise noted, all lab tests performed by: Division of Pathology and Laboratory Medicine [address] [place] [id number] * (ABNORMAL) Phosphorus Level (09/07/2024 10:49 AM CDT) Only the most recent of8 resultswithin the time period is included. Phosphorus Level 2.4(L) 2.5 - 4.5 mg/dL 09/07/2024 11:49 AM CDT [facility] Blood Peripheral blood specimen / Unknown Port / Unknown 09/07/2024 10:49 AM CDT 09/07/2024 10:50 AM CDT Gillian PRICE- LAB BLOOD ORDERABLES Final Result Performing Organization Address City/[facility] de Phone Number [facility] Unless otherwise noted, all lab tests performed by: Division of Pathology and Laboratory Medicine [address] [place] [id number] * Magnesium Level (09/07/2024 10:49 AM CDT) Only the most recent of8 resultswithin the time period is included. Magnesium Level 1.8 1.6 - 2.6 mg/dL 09/07/2024 11:49 AM CDT [facility] Blood Peripheral blood specimen / Unknown Port / Unknown 09/07/2024 10:49 AM CDT 09/07/2024 10:50 AM CDT Gillian PRICE-C LAB BLOOD ORDERABLES Final Result Performing Organization Address [facility] de Phone Number [facility] Unless otherwise noted, all lab tests performed by: Division of Pathology and Laboratory Medicine [address] [place] [id number] * LDH (09/07/2024 10:49 AM CDT) Only the most recent of8 resultswithin the time period is included. LDH 148 135 - 225 U/L 09/07/2024 11:49 AM CDT [facility] Blood Peripheral blood specimen / Unknown Port / Unknown 09/07/2024 10:49 AM CDT 09/07/2024 10:50 AM CDT Narrative [facility] - 09/07/2024 11:49 AM CDT Results greater than 1651 U/L may not be reliable due to matrix effect with extended dilution as it exceeds the project management instructor's recommended limit. Caution should be exercised when interpreting such values and done in conjunction with clinical context. Gillian Gomez PA-C LAB BLOOD ORDERABLES Final Result Performing Organization Address [facility]/ZIP Co de Phone Number [facility] Unless otherwise noted, all lab tests performed by: Division of Pathology and Laboratory Medicine [address] [place] [id number] * CEA (09/07/2024 10:49 AM CDT) Only the most recent of7 resultswithin the time period is included. Carcinoembryonic Antigen 1.9 <=3.8 ng/mL 09/07/2024 12:08 PM CDT [facility] Blood Peripheral blood specimen / Unknown Port / Unknown 09/07/2024 10:49 AM CDT 09/07/2024 10:50 AM CDT Narrative [facility] - 09/07/2024 12:08 PM CDT Reference Ranges (age 20-69 years): Non-smoker: <= 3.8 ng/mL Smoker: <= 5.5 ng/mL This test is measured by electrochemiluminescence immunoassay on Cornelius Nikki immunoassay analyzers. Results obtained in different methods are not interchangeable. Gillian Gomez PA-C LAB BLOOD ORDERABLES Final Result Performing Organization Address [facility] de Phone Number [facility] Unless otherwise noted, all lab tests performed by: Division of Pathology and Laboratory Medicine [address] [place] [id number] * CT Chest Abdomen Pelvis with Contrast (07/15/2024 4:38 PM TAPERING MACHINE OPERATOR) Anatomical Region Laterality Modality Abdomen, Pelvis, Chest Computed Tomography 07/15/2024 5:39 PM TAPERING MACHINE OPERATOR Impressions 07/15/2024 9:45 PM TAPERING MACHINE OPERATOR 1. Redemonstration of diffuse wall [...] and potentially actionable. Narrative 07/15/2024 9:45 PM TAPERING MACHINE OPERATOR FULL RESULT: Examination: CT CHEST [...] CT ORDERABLES Final Result * Research Protocol [id number] (07/15/2024 10:01 AM TAPERING MACHINE OPERATOR) Only the most recent of2 resultswithin the time period is included. Research Protocol Specimen Specimen Collected, Ready for Pickup. 07/15/2024 12:00 PM TAPERING MACHINE OPERATOR [facility] Blood Venipuncture / Unknown 07/15/2024 10:01 AM TAPERING MACHINE OPERATOR 07/15/2024 10:10 AM TAPERING MACHINE OPERATOR Marianela Hutchinson MD RESEARCH LAB Z CODES Final Re sult [facility] Unless otherwise noted, all lab tests performed by: Division of Pathology and Laboratory Medicine [address] [place] [address] * IHC Workup (07/07/2024 12:29 PM TAPERING MACHINE OPERATOR) Tissue 07/07/2024 12:2 9 PM TAPERING MACHINE OPERATOR 07/07/2024 12:29 PM TAPERING MACHINE OPERATOR Gillian Gomez PA-C, MDA AP BIOMARKER ORDERABLE S Final Result Performing Organization Address City/[facility]/ZIP Co de Phone Number [facility] [place] [address], * (ABNORMAL) POC Glucose Screen - Fingerstick (06/30/2024 1:23 PM TAPERING MACHINE OPERATOR) Only the most recent of24 resultswithin the time period is included. Glucose Screen 168(H) 70 - 99 mg/dL 06/30/2024 1:25 PM TAPERING MACHINE OPERATOR [facility] POC Sample Type Capillary 06/30/2024 1:25 PM TAPERING MACHINE OPERATOR [facility] Blood 06/30/2024 1:23 PM TAPERING MACHINE OPERATOR 06/30/2024 1:25 PM TAPERING MACHINE OPERATOR Narrative [facility] - 06/30/2024 1:25 PM TAPERING MACHINE OPERATOR Capillary blood samples, e.g. obtained [...] DE VICE Final Result Performing Organization Address City/[facility]/ZIP Co de Phone Number [facility] Unless otherwise noted, all lab tests performed by: Division of Pathology and Laboratory Medicine [address] [place] [id number] * Pathology Biopsy Interpretation (06/30/2024 12:51 PM TAPERING MACHINE OPERATOR) Only the most recent of3 resultswithin the time period is included. Addendum 1 By immunohistochemistry, approximately 10% of the tumor cells show weakly to moderately cytoplasmic staining for claudin 18. By immunohistochemistry the combined positive score (CPS) for PD-L1 is <1. 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 07/10/2024 8:47 AM [facility] Gross Description A: Esophagus, lower esophageal ulcer at 37cm: Multiple soft light castillo tissue fragments, 0.7 x 0.6 x 0.1 cm in aggregate, entirely submitted in A1. ET 07/10/2024 8:47 AM [facility] Biomarker Block(s) Block for biomarker testing: A1 07/10/2024 8:47 AM [facility] Disclaimer "Some tests reported here may have been developed and performance characteristics determined by [facility] Pathology and Laboratory Medicine. These tests have not been specifically cleared or approved by the U.S. Food and Drug Administration. If applicable, controls were reviewed and showed appropriate reactivity." 07/10/2024 8:47 AM [facility] Tissue (Esophagus) 06/30/2024 12:51 PM TAPERING MACHINE OPERATOR 06/30/2024 2:51 PM TAPERING MACHINE OPERATOR us Brandon Galo MD LAB PATHOLOGY ORDERA ANDERSS Edited Result - Final [facility] [place] [address], [place] * (ABNORMAL) POC Chem 8 (06/30/2024 11:10 AM TAPERING MACHINE OPERATOR) Only the most recent of2 resultswithin the time period is included. Pathologist [facility] POC Sodium 136(L) 138 - 146 mmol/L 06/30/2024 11:13 AM [facility] POC Potassium 4.5 3.5 - 4.9 mmol/L 06/30/2024 11:13 AM [facility] POC Chloride 100 98 - 109 mmol/L 06/30/2024 11:13 AM [facility] POC VTCO2 27 24 - 29 mmol/L 06/30/2024 11:13 AM [facility] POC Anion Gap 14 10 - 20 mmol/L 06/30/2024 11:13 AM [facility] POC BUN 30(H) 8 - 26 mg/dL 06/30/2024 11:13 AM [facility] POC Creatinine 1.1 0.6 - 1.3 mg/dL 06/30/2024 11:13 AM [facility] Comment:Medications, especia lly hydroxyurea or supplements, such as ascorbate, can interfere with test results causing a falsely and significantly higher result than expected. If a problem is suspected with a patient's result, a sample should be sent to the laboratory for confirmatory testing. POC I Glu 182(H) 70 - 99 mg/dL 06/30/2024 11:13 AM [facility] Comment:Medications, especia lly hydroxyurea or supplements, such as ascorbate, can interfere with test results causing a falsely and significantly higher result than expected. If a problem is suspected with a patient's result, a sample should be sent to the laboratory for confirmatory testing. POC Ionized Calcium 1.26 1.12 - 1.32 mmol/L 06/30/2024 11:13 AM [facility] POC Hct 39.0 38.0 - 51.0 % 06/30/2024 11:13 AM [facility] POC Hgb 13.3 12.0 - 17.0 gm/dL 06/30/2024 11:13 AM [facility] Comment:Hematocrit values fr om the [...] standard. POC Sample Type Venous 11:13 AM [facility] POC eGFR 77 >=60 mL/min/1.7 3 sq. m 06/30/2024 11:13 AM [facility] Comment: The [...] for CKD. Blood 06/30/2024 11:1 0 AM TAPERING MACHINE OPERATOR 06/30/2024 11:13 AM TAPERING MACHINE OPERATOR Narrative [facility] - 06/30/2024 11:13 AM TAPERING MACHINE OPERATOR Method description: The i-STAT is [...] ORDERABLES - DE VICE Final Result [facility] Unless otherwise noted, all lab tests performed by: Division of Pathology and Laboratory Medicine [address] [place] [id number] * EKG, 12-Lead (Scheduled) (06/29/2024) Only the most recent of3 resultswithin the time period is included. Mary Kay Santamaria BUSINESS SERVICES ASSOCIATE ECG ORDERABLES Final R esult [facility] IECG * PETCT F18 FDG (Fluorodeoxyglucose) with contrast (06/20/2024 12:42 PM TAPERING MACHINE OPERATOR) Anatomical Region Laterality Modality Whole Body Positron Emissio n Tomography (PET) 06/20/2024 3:10 PM TAPERING MACHINE OPERATOR Impressions 06/20/2024 4:38 PM TAPERING MACHINE OPERATOR Biopsy-proven malignancy in the region [...] and potentially actionable. Narrative 06/20/2024 4:38 PM TAPERING MACHINE OPERATOR FULL RESULT: Examination: 18F-FDG-PET/CT with [...] and potentially actionable. us Gillian Gomez PA-C IM PETCT ORDERABLES Final Result * Transferrin with TIBC (06/01/2024 11:10 AM TAPERING MACHINE OPERATOR) Transferrin 211 200 - 360 mg/dL 06/01/2024 12:15 PM TAPERING MACHINE OPERATOR [facility] Total Iron Binding Capacity 295 250 - 450 mcg/dL 06/01/2024 12:15 PM TAPERING MACHINE OPERATOR [facility] Blood Peripheral blood specimen / Unknown Venipuncture / Unknown 06/01/2024 11:10 AM TAPERING MACHINE OPERATOR 06/01/2024 11:23 AM TAPERING MACHINE OPERATOR us Marianela Hutchinson MD LAB BLOOD ORDERABLES Final Re sult Performing Organization Address [facility]/ZIP Co de Phone Number [facility] Unless otherwise noted, all lab tests performed by: Division of Pathology and Laboratory Medicine [address] [place] [id number] * (ABNORMAL) Iron Level (06/01/2024 11:10 AM TAPERING MACHINE OPERATOR) Iron Level 38(L) 59 - 158 mcg/dL 06/01/2024 12:15 PM TAPERING MACHINE OPERATOR [facility] Is patient fasting? No 06/01/2024 12:15 PM TAPERING MACHINE OPERATOR [facility] Blood Peripheral blood specimen / Unknown Venipuncture / Unknown 06/01/2024 11:10 AM TAPERING MACHINE OPERATOR 06/01/2024 11:23 AM TAPERING MACHINE OPERATOR us Marianela Hutchinson MD LAB BLOOD ORDERABLES Final Re sult Performing Organization Address [facility] de Phone Number [facility] Unless otherwise noted, all lab tests performed by: Division of Pathology and Laboratory Medicine [address] [place] [id number] [place] [address] Unless otherwise noted, all lab tests performed by: Division of Pathology and Laboratory Medicine [address] [place] [phone] * Ferritin Level (06/01/2024 11:10 AM TAPERING MACHINE OPERATOR) Ferritin Level 59 30 - 400 ng/mL 06/01/2024 12:15 PM TAPERING MACHINE OPERATOR [facility] Blood Peripheral blood specimen / Unknown Venipuncture / Unknown 06/01/2024 11:10 AM TAPERING MACHINE OPERATOR 06/01/2024 11:23 AM TAPERING MACHINE OPERATOR Narrative [facility] - 06/01/2024 12:15 PM TAPERING MACHINE OPERATOR Reference range established for age 20 - 60 years us Marianela Hutchinson MD LAB BLOOD ORDERABLES Final Re sult [facility] [place] Unless otherwise noted, all lab tests performed by: Division of Pathology and Laboratory Medicine [facility] [place] [address] * Tip Verification Central Vascular Access Device (04/15/2024 3:50 PM TAPERING MACHINE OPERATOR) Narrative John Fong MD - 04/15/2024 3:50 PM TAPERING MACHINE OPERATOR John Fong MD 04/15/2024 3:50 PM Central Vascular Access Device Tip Verification Performed by: John Fong MD Authorized by: John Fong MD CVAD Properties Date device placed: 04/15/2024 Device placement location: [facility] Catheter Type: Implanted venous port Catheter lumen: Single lumen Vein location: Internal jugular vein Laterality: Right Tip in good position and cleared for infusion John Fong MD IV THERAPY ORDERABLES Final Re sult * XR Chest 1 View Portable (04/15/2024 2:45 PM TAPERING MACHINE OPERATOR) Anatomical Region Laterality Modality Chest Digital Radiogra phy 04/15/2024 2:50 PM TAPERING MACHINE OPERATOR Impressions 04/15/2024 2:53 PM TAPERING MACHINE OPERATOR 1. Right infusion port catheter [...] and potentially actionable. Narrative 04/15/2024 2:53 PM TAPERING MACHINE OPERATOR FULL RESULT: Examination: XR CHEST [...] IMAGING ORDERAB LES Final Result * Cytology Non-Supervisor [employer] Interpretation (04/15/2024 12:33 PM TAPERING MACHINE OPERATOR) Gross Description 4 Pap Stain Slides 750 ml. clear yellow fluid Specimen concentrated by cytocentrifugation technique 4 4:07 PM TAPERING MACHINE OPERATOR [facility] Major Classification [facility]/benign 4 4:07 PM TAPERING MACHINE OPERATOR [facility] Diagnosis Peritoneal washing: No metastatic carcinoma identified Reactive mesothelial cells and histiocytes 4 4:07 PM TAPERING MACHINE OPERATOR [facility] Retained/Biomark er Testing SR:4S 4 4:07 PM TAPERING MACHINE OPERATOR [facility] Informational Points Some tests reported here may have been developed and performance characteristics determined by [facility] Pathology and Laboratory Medicine. These tests have not been specifically cleared or approved by the U.S. Food and Drug Administration. 4 4:07 PM [facility] Washing (Peritoneal Washing) 04/15/2024 12:33 PM TAPERING MACHINE OPERATOR 04/15/2024 1:10 PM TAPERING MACHINE OPERATOR us John Fong MD LAB CYTOLOGY ORDERABLES Final Result Performing Organization Address City/State/[facility] Co me Phone Number [facility] [address] [place] [phone], * Pathology Surgical Interpretation (04/15/2024 12:13 PM TAPERING MACHINE OPERATOR) Only the most recent of2 resultswithin the time period is included. Submitted Clinical History Adenocarcinoma of stomach [C16.9] 04/20/2024 8:13 PM TAPERING MACHINE OPERATOR [facility] Diagnosis A. Falciform ligament, resection: Fibroadipose tissue, no tumor present 04/20/2024 8:13 PM [facility] Gross Description A: Falciform ligament, falciorm ligament biopsy....or 16: Consists of a fragment of castillo-yellow, lobulated fat (0.8 x 0.6 x 0.5 cm) entirely submitted in cassette A1. EF 04/20/2024 8:13 PM [facility] Disclaimer "Some tests reported here may have been developed and performance characteristics determined by [facility] Pathology and Laboratory Medicine. These tests have not been specifically cleared or approved by the U.S. Food and Drug Administration. If applicable, controls were reviewed and showed appropriate reactivity." 04/20/2024 8:13 PM TAPERING MACHINE OPERATOR [facility] Tissue (Falciform Ligament) 04/15/2024 12:13 PM TAPERING MACHINE OPERATOR 04/15/2024 1:18 PM TAPERING MACHINE OPERATOR us John Fong MD LAB PATHOLOGY ORDERABLES Final Result [facility] [place] [address] [place] [address], [place] * [place] [address] Exchange (04/15/2024 11:40 AM TAPERING MACHINE OPERATOR) Narrative Systemgenerated, Documentation - 04/15/2024 11:40 AM TAPERING MACHINE OPERATOR This procedure requires no interpretation from the radiologist. us John Fong MD IMG FLUOROSCOPY ORDERABLES Fin al Result * CT Abdomen Pelvis with IV Contrast (04/12/2024 11:18 AM TAPERING MACHINE OPERATOR) Anatomical Region Laterality Modality Abdomen, Pelvis Computed Tomogra phy 04/12/2024 11:5 2 AM TAPERING MACHINE OPERATOR Impressions 04/12/2024 12:11 PM TAPERING MACHINE OPERATOR Wall thickening and slight mucosal [...] and potentially actionable. Narrative 04/12/2024 12:11 PM TAPERING MACHINE OPERATOR FULL RESULT: Examination: CT ABDOMEN [...] Result * Fractionated Bilirubin (04/12/2024 9:04 AM [facility]) Bilirubin Direct 04/12/20 9:47 AM [facility] Comment: Direct and indirect bilirubin will not be reported when Total bilirubin result is <0.3 mg/dL Indocyanine Green (ICG) may cause falsely elevated bilirubin results. Total and direct bilirubin must not be measured from samples containing indocyanine green. Bilirubin Indirect 2023 9:47 AM [facility] Comment:Direct and indirect bilirubin will not be reported when Total bilirubin result is <0.3 mg/dL Bilirubin Total <0.3 0.0 - 1.2 mg/dL 04/12/2024 9:47 AM [facility] Comment: Direct and indirect bilirubin [...] Unknown Venipuncture / Unknown 04/12/2024 9:04 AM TAPERING MACHINE OPERATOR 04/12/2024 9:08 AM TAPERING MACHINE OPERATOR us Nghia Zhu MD LAB BLOOD ORDERABLES Final Resu lt Performing Organization Address [facility] de Phone Number [facility] Unless otherwise noted, all lab tests performed by: Division of Pathology and Laboratory Medicine [address] [place] [id number] * (ABNORMAL) Lipase (04/12/2024 9:04 AM TAPERING MACHINE OPERATOR) Lipase Level 311(H) 13 - 60 U/L 04/12/2024 10:09 AM TAPERING MACHINE OPERATOR [facility] Blood Peripheral blood specimen / Unknown Venipuncture / Unknown 04/12/2024 9:04 AM TAPERING MACHINE OPERATOR 04/12/2024 9:08 AM TAPERING MACHINE OPERATOR Narrative [facility] - 04/12/2024 10:09 AM TAPERING MACHINE OPERATOR Reference range established based on adult population us Nghia Zhu MD LAB BLOOD ORDERABLES Final Resu lt Performing Organization Address [facility] de Phone Number [facility] Unless otherwise noted, all lab tests performed by: Division of Pathology and Laboratory Medicine [address] [place] [id number] * (ABNORMAL) Amylase (04/12/2024 9:04 AM TAPERING MACHINE OPERATOR) Amylase Level 171(H) 28 - 100 U/L 04/12/2024 9:47 AM TAPERING MACHINE OPERATOR [facility] Blood Peripheral blood specimen / Unknown Venipuncture / Unknown 04/12/2024 9:04 AM TAPERING MACHINE OPERATOR 04/12/2024 9:08 AM TAPERING MACHINE OPERATOR us Nghia Zhu MD LAB BLOOD ORDERABLES Final Resu lt [facility] Unless otherwise noted, all lab tests performed by: Division of Pathology and Laboratory Medicine [address] [place] [id number] * TSH (04/09/2024 11:09 AM TAPERING MACHINE OPERATOR) Only the most recent of2 resultswithin the time period is included. Thyroid Stimulating Hormone 1.53 0.27 - 4.20 mcunit/mL 04/09/2024 12:23 PM TAPERING MACHINE OPERATOR [facility] Blood Peripheral blood specimen / Unknown Venipuncture / Unknown 04/09/2024 11:09 AM TAPERING MACHINE OPERATOR 04/09/2024 11:19 AM TAPERING MACHINE OPERATOR us Ceci Nicholson MD LAB BLOOD ORDERABLES Final Resu lt [facility] Unless otherwise noted, all lab tests performed by: Division of Pathology and Laboratory Medicine [address] [place] [id number] * (ABNORMAL) Hemoglobin A1c (04/09/2024 11:09 AM TAPERING MACHINE OPERATOR) Only the most recent of3 resultswithin the time period is included. Hemoglobin A1c 7.0(H) 4.3 - 5.6 % 04/09/2024 12:14 PM TAPERING MACHINE OPERATOR [facility] Blood Peripheral blood specimen / Unknown Venipuncture / Unknown 04/09/2024 11:09 AM TAPERING MACHINE OPERATOR 04/09/2024 11:19 AM TAPERING MACHINE OPERATOR Narrative [facility] - 04/09/2024 12:14 PM TAPERING MACHINE OPERATOR HbA1c values >=6.5% are diagnostic of diabetes mellitus. Diagnosis should be confirmed by repeat testing. Therapeutic Action suggested: >8.0% HbA1c; Goal of therapy: <7.0% HbA1c us Ceci Nicholson MD LAB BLOOD ORDERABLES Final Resu lt [facility] Unless otherwise noted, all lab tests performed by: Division of Pathology and Laboratory Medicine [address] [place] [id number] * Pathology Outside Interpretation (04/02/2024) Materials Received Accession#, Stained, Block, Unstained Collected Received A. [id number], 20 SS, 0 BLOCKS, 0 USS 04/02/2024 04/22/2024 04/22/2024 5:36 PM [facility] Diagnosis Outside ([id number], 20 SS, 0 BLOCKS, 0 USS, collected [...] FEATURES. See comment. CLEMENTE/ISAURO 04/22/2024 5:36 PM [facility] Comment Part A. There is no evidence of malignancy on H&E and immunohistochemical stain for Cytokeratin AE1/AE3. Of note, the biopsy may not be payable representative of the entire lesion. Please correlate [...] immunohistochemistry: Negative (Score: 0) 04/22/2024 5:36 PM [facility] Biomarker Block(s) Block for biomarker testing: C1 Normal block: N/A 04/22/2024 5:36 PM [facility] Disclaimer "Some tests reported here may have been developed and performance characteristics determined by [facility] Pathology and Laboratory Medicine. These tests have not been specifically cleared or approved by the U.S. Food and Drug Administration. If applicable, controls were reviewed and showed appropriate reactivity." 04/22/2024 5:36 PM TAPERING MACHINE OPERATOR [facility] Tissue 04/02/2024 04/22/2024 6:4 0 AM TAPERING MACHINE OPERATOR Sybil Edmonds MD LAB PATHOLOGY ORDERABLES Final R esult [facility] [place] [id number] [place] [address], [place] * OSI CT Abdomen and Pelvis (04/01/2024 8:21 AM TAPERING MACHINE OPERATOR) Only the most recent of2 resultswithin the time period is included. Narrative Systemgenerated, Documentation - 04/27/2024 8:22 AM TAPERING MACHINE OPERATOR Study acquired at another institution. For comparison only. No MD Gimenez originated interpretation requested or available. [facility] Regan Zhu DO IMG OUTSIDE IMAGE ORDERAB LES Final Result * OSI CT CHEST ABDOMEN PELVIS (03/23/2024 7:37 PM TAPERING MACHINE OPERATOR) Narrative Systemgenerated, Documentation - 04/09/2024 7:37 PM TAPERING MACHINE OPERATOR Study acquired at another institution. For comparison only. No MD Gimenez originated interpretation requested or available. Margoth Souza MD IMG OUTSIDE IMAGE ORDERABLES Fin al Result * OSI Chest (03/23/2024 7:37 PM TAPERING MACHINE OPERATOR) Only the most recent of4 resultswithin the time period is included. Narrative Systemgenerated, Documentation - 04/09/2024 7:37 PM TAPERING MACHINE OPERATOR Study acquired at another institution. For comparison only. No MD Gimenez originated interpretation requested or available. us Margoth Souza MD IMG OUTSIDE IMAGE ORDERABLES Fin al Result * OSI CT Chest (03/22/2024 8:21 AM TAPERING MACHINE OPERATOR) Narrative Systemgenerated, Documentation - 04/27/2024 8:21 AM TAPERING MACHINE OPERATOR Study acquired at another institution. For comparison only. No [facility] interpretation requested or available. [facility] Regan Zhu DO IMG OUTSIDE [...] - 14 mmol/L 01/03/2024 3:44 PM CDT [facility] Creatinine 1.18(H) 0.67 - 1.17 mg/dL 01/03/2024 3:44 PM CDT [facility] BUN 15 6 - 23 mg/dL 01/03/2024 3:44 PM CDT [facility] Glucose Level 137(H) 70 - 99 mg/dL 01/03/2024 3:44 PM CDT [facility] Comment: Effective 12/14/15, the glucose reference intervals have been updated based on [place] [employer] guidelines (Standards of Medical Care [...] APRN LAB BLOOD ORDERABLES Final Result [facility] Unless otherwise noted, all lab tests performed by: Division of Pathology and Laboratory Medicine [address] [place] [id number] * Zinc Transporter 8 Ab (01/03/2024 4:22 AM CDT) Zinc T8 AB <15.0 <15.0 U/mL 01/15/2024 11:18 AM CDT [facility] Comment: ADDITIONAL INFORMATION This test has been modified from the project management instructor's instructions. Its performance characteristics were determined by [facility] in a manner consistent with CLIA requirements. This test has not been cleared or approved by the U.S. Food and Drug Administration. Test Performed by: [address] [address] Professional Athlete: Mary Jane Topete Ph.D.; CLIA# [id number] Blood Peripheral blood specimen / Unknown Venipuncture / Unknown 01/03/2024 4:22 AM CDT 01/03/2024 4:55 AM CDT Alicia Sohail Mcmanusemily MARIE LAB BLOOD ORDERABLES Final Result Performing Organization Address [facility] de Phone Number [facility] * Islet Antigen 2 (IA-2) Antibody (01/03/2024 4:22 AM CDT) IA-2 Antibody 0.00 <=0.02 nmol/L 01/07/2024 12:20 AM CDT [facility] Comment: ADDITIONAL INFORMATION This test was developed and its performance characteristics determined by [facility] in a manner consistent with CLIA requirements. This test has not been cleared or approved by the U.S. Food and Drug Administration. Test Performed by: [facility] [place] [address] Professional Athlete: Mary Jnae Topete Ph.D.; CLIA# [id number] Blood Peripheral blood specimen / Unknown Venipuncture / Unknown 01/03/2024 4:22 AM CDT 01/03/2024 4:55 AM CDT Alicia Mcmanus APRN LAB BLOOD ORDERABLES Final Result Performing Organization Address [facility] de Phone Number [facility] * GREG Ab Assay (01/03/2024 4:22 AM CDT) Pathologist [id number] 0.00 <=0.02 nmol/L 01/07/2024 12:01 AM CDT [facility] Comment: ADDITIONAL INFORMATION This test was developed and its performance characteristics determined by [facility] in a manner consistent with CLIA requirements. This test has not been cleared or approved by the U.S. Food and Drug Administration. Test Performed by: [address] [address] Professional Athlete: Mary Jane Topete Ph.D.; CLIA# [id number] Blood Peripheral blood specimen / Unknown Venipuncture / Unknown 01/03/2024 4:22 AM CDT 01/03/2024 4:55 AM CDT Alicia Mcmanus APRN LAB BLOOD ORDERABLES Final Result [facility] * Insulin Ab (01/03/2024 4:22 AM CDT) [facility] 0.00 0.00 - 0.02 nmol/L 01/06/2024 5:14 PM CDT [facility] Comment: ADDITIONAL INFORMATION This test was developed and its performance characteristics determined by [facility] in a manner consistent with CLIA requirements. This test has not been cleared or approved by the U.S. Food and Drug Administration. Test Performed by: [address] [address] Professional Athlete: Mary Jane Topete Ph.D.; CLIA# [id number] Blood Peripheral blood specimen / Unknown Venipuncture / Unknown 01/03/2024 4:22 AM CDT 01/03/2024 4:55 AM CDT Alicia Mcmanus APRN LAB BLOOD ORDERABLES Final Result [facility] * C Peptide (01/03/2024 4:22 AM CDT) [facility] C-Peptide 2.12 1.10 - 4.40 ng/mL 01/03/2024 5:48 AM CDT [facility] Blood Peripheral blood specimen / Unknown Venipuncture / Unknown 01/03/2024 4:22 AM CDT 01/03/2024 4:55 AM CDT us Alicia Mcmanus APRN LAB BLOOD ORDERABLES Final Result [facility] Unless otherwise noted, all lab tests performed by: Division of Pathology and Laboratory Medicine [address] [place] [id number] * (ABNORMAL) Hemogram (01/02/2024 7:20 PM CDT) [...] PRICE LAB BLOOD ORDERABLES Final R esult [facility] Unless otherwise noted, all lab tests performed by: Division of Pathology and Laboratory Medicine [address] [place] [address] * (ABNORMAL) Beta Hydroxy Quant (01/02/2024 7:20 [...] APRN LAB BLOOD ORDERABLES Final Result [facility] Unless otherwise noted, all lab tests performed by: Division of Pathology and Laboratory Medicine [address] [place] [id number] * (ABNORMAL) ABG+ (ABG, Na, K, Cl, [...] 105 mg/dL 01/02/2024 10:44 AM T [facility] Hgb Art 12.9(L) 13.5 - 17.5 g/dL 01/02/2024 10:44 AM T [facility] Hematocrit Arterial 40(L) 42 - 52 % 01/02/2024 10:44 AM CDT [facility] Lactate Arterial 1.0(H) 0.4 - 0.8 mmol/L 01/02/2024 10:44 AM CDT [facility] Calcium Ionized Arterial 1.14(L) 1.15 - 1.29 mmol/L 01/02/2024 10:44 AM T [facility] pH Arterial 7.35 7.35 - 7.45 01/02/2024 10:44 AM T [facility] P CO2 Arterial 42.9 35.0 - 48.0 mmHg 01/02/2024 10:44 AM T [facility] P O2 Arterial 164(H) 83 - 108 mmHg 01/02/2024 10:44 AM T [facility] Bicarbonate Arterial 24 21 - 28 mmol/L 01/02/2024 10:44 AM T [facility] WB Anion Gap 13 7 - 16 mmol/L 01/02/2024 10:44 AM T [facility] Base Excess Arterial -2 -2 - 3 mmol/L 01/02/2024 10:44 AM T [facility] Oxygen Saturation Arterial 99 95 - [...] LAB BLOOD ORDERABLES Final Re sult [facility] Unless otherwise noted, all lab tests performed by: Division of Pathology and Laboratory Medicine [address] [place] [address] [place] [address] * Intraoperative Ultrasound - For Image Storage [...] BLOOD BANK TEST ORDERABLES Final Result [facility] - TRANSFUSION SERVICES [facility] Transfusion Services [address] [place] [address] * Preop Updated Expiration (12/23/2023 8:51 AM CDT) PREOP STATUS 01/02/2024 11:33 PM CDT [facility] PREOP EXP DATE 01/02/2024 01/02/2024 11:33 PM CDT [facility] Blood Peripheral blood specimen / Unknown Venipuncture / Unknown 12/23/2023 8:51 AM CDT 12/23/2023 9:00 AM CDT us Margoth Souza MD BLOOD BANK TEST ORDERABLES Final Result [facility] TRANSF[facility] Transfusion Services [address] [place] [address] * (ABNORMAL) Urinalysis with Reflex Culture (12/23/2023 8:51 AM CDT) Only the most recent of2 resultswithin the time period is included. Urine Appearance Clear Clear 12/23/19 9:33 AM CDT [facility] Urine Color Straw Colorless, Straw, Yellow, Dark Yellow, Straw-Yellow 12/23/2023 9:33 AM CDT [facility] Urine Specific [place] 1.032 1.003 - 1.035 12/23/2023 9:33 AM [...] implementation of new instrumentation in the Main [place], allowing greater sensitivity of measurement. Urinalysis results reported by the [facility] using existing instrumentation, as well as Urinalysis testing performed manually or by back-up methodology at the main [place], will remain relatively unchanged. New reporting parameters and units will now be reported for all campuses. us Margoth Souza MD URINE ORDERABLES Final Result [facility] Unless otherwise noted, all lab tests performed by: Division of Pathology and Laboratory Medicine [address] [place] [id number] * 30-Day Pre-Op Type and Screen (12/23/2023 [...] BLOOD BANK TEST ORDERABLES Final Result [facility] - TRANSFUSION [facility]fusion [facility] [address] [place] [address] [address] [place] [address] * TMP Interpretation Exception PreOp Expiration (12/23/2023 [...] BLOOD BANK TEST ORDERABLES Final Result [facility] TRANSF[facility]ION [facility]fusion [facility] [address] [place] [address] * ACTH (12/09/2023 9:45 AM CDT) Only [...] with extended dilution as it exceeds the project management instructor's recommended limit. ACTH reference intervals are established for the morning hours from 7-10 am. Due to the circadian rhythm of ACTH levels in plasma, the sample collection time must be noted. Caution should be exercised when interpreting such values and done in conjunction with clinical context. us Veronica Del Castillo APRN LAB BLOOD ORDERABLES Final Result [facility] Unless otherwise noted, all lab tests performed by: Division of Pathology and Laboratory Medicine [address] [place] [id number] * DHEA Sulfate (12/09/2023 9:45 AM CDT) Pathologist [facility] DHEAS-[place] 81 20 - 299 mcg/dL 12/10/2023 12:10 PM CDT [facility] Comment: Test Performed by: [facility] [address] [place] [address] Professional Athlete: Mary Jane Topete Ph.D.; CLIA# [id number] Blood Peripheral blood specimen / Unknown Venipuncture / Unknown 12/09/2023 9:45 AM CDT 12/09/2023 9:56 AM CDT LeahTinybeanssariah OrtaXIHAEvonne MARIE LAB BLOOD ORDERABLES Final Result [facility] * Cortisol, Total (12/09/2023 9:45 AM CDT) Only the most recent of4 resultswithin the time period is included. Pathologist [facility] Cortisol 11.39 4.82 - 19.50 mcg/dL 12/09/2023 11:00 AM CDT [facility] Blood Peripheral blood specimen / Unknown Venipuncture / Unknown 12/09/2023 9:45 AM CDT 12/09/2023 9:55 AM CDT Narrative [facility] - 12/09/2023 11:00 AM [...] (4-8 pm): 2.47 - 11.9 mcg/dL LeahClint Del Castillo APRN LAB BLOOD ORDERABLES Final Result [facility] Unless otherwise noted, all lab tests performed by: Division of Pathology and Laboratory Medicine [facility] [place] [address] * IR CT GUIDED BIOPSY RENAL (10/03/2023 10:27 AM CDT) Anatomical Region Laterality Modality Abdomen/Pelvis, Organ (liver/spleen/kidney) Computed Tomography Narrative 10/04/2023 9:03 AM CDT Table formatting from the original result was not included. Date of Procedure: 10/03/23 Attending Physician: Kumar Comer MD Shower Screen Installer: None Pre Procedure Diagnosis: Renal mass Post [...] 10/03/2023 9:57 AM CDT [facility] International Normalization Ratio 0.98 0.87 - 1.12 10/03/2023 9:57 AM CDT [facility] Blood Peripheral blood specimen / Unknown Venipuncture / Unknown 10/03/2023 9:27 AM CDT 10/03/2023 9:28 AM CDT Abilio Ng PA-C LAB BLOOD ORDERABLES Final Result [facility] [address] [facility] [place] [address] * Type and Screen (10/03/2023 9:27 AM [...] CDT 10/03/2023 9:52 AM CDT us Abilio Horn Ho PA-C BLOOD BANK TEST ORDERABLES Final Result [facility] TRANSF[facility]ION [facility] Transfusion [facility] [address] [place] [address] * X-ray Chest 2 Views (09/19/2023 9:24 [...] unexpected and potentially actionable. Shazia Arriaza MD [facility] DIAGNOSTIC IMAGING ORD ERABLES Final Result * Metanephrines Fractionated (09/16/2023 4:24 PM CDT) Pathologist [facility] Normetane Free-Maxwell 0.43 <0.90 nmol/L 09/19/2023 2:59 PM CDT [facility] Metanephr Free-[place] <0.20 <0.50 nmol/L 09/19/2023 2:59 PM CDT [facility] Comment: ADDITIONAL INFORMATION This test was developed and its performance characteristics determined by [facility] in a manner consistent with CLIA requirements. This test has not been cleared or approved by the U.S. Food and Drug Administration. Test Performed by: [place] [address] Professional Athlete: Scot Skelton M.D. Ph.D.; CLIA# [id number] Blood Peripheral blood specimen / Unknown Venipuncture / Unknown 09/16/2023 4:24 PM CDT 09/16/2023 4:41 PM CDT Shazia Arriaza MD LAB BLOOD ORDERABLES Final Result [facility] * Hepatitis C Virus Antibody (09/16/2023 4:24 PM CDT) Pathologist [facility] HCVAb. Non Reactive Non Reactive 09/17/2023 9:11 [...] MD LAB BLOOD ORDERABLES Final Result [facility] Unless otherwise noted, all lab tests performed by: Division of Pathology and Laboratory Medicine [address] [place] [id number] * Aldosterone Level (09/16/2023 4:24 PM CDT) Pathologist [facility] 8.1 <=21 ng/dL 09/20/2023 1:02 AM CDT [facility] Comment: ADDITIONAL INFORMATION Reference range for patients 11 years and older is based on upright A.M. collection from subjects without sodium restrictions. This test was developed and its performance characteristics determined by [facility] in a manner consistent with CLIA requirements. This test has not been cleared or approved by the U.S. Food and Drug Administration. Test Performed by: [facility] [place] [address] Professional Athlete: Scot Skelton M.D. Ph.D.; CLIA# [id number] Blood Peripheral blood specimen / Unknown Venipuncture / Unknown 09/16/2023 4:24 PM CDT 09/16/2023 4:41 PM CDT Shazia Arriaza MD LAB BLOOD ORDERABLES Final Result [facility] * Renin Activity (09/16/2023 4:24 PM CDT) [facility]mL/h 09/19 3:42 PM CDT [facility] Comment: REFERENCE VALUE (Peripheral vein specimen) Na-deplete, upright: Mean: 5.9 Range: 2.9-10.8 Na-replete, upright: Mean: 1.0 Range: < or =0.6-3.0 ADDITIONAL INFORMATION Testing performed by Liquid Chromatography-Tandem Mass Spectrometry (LC-MS/MS). This test was developed and its performance characteristics determined by [facility] in a manner consistent with CLIA requirements. This test has not been cleared or approved by the U.S. Food and Drug Administration. Test Performed by: [facility] [address] [place] [id number] Professional Athlete: Scot Skelton M.D. Ph.D.; CLIA# [id number] Blood Peripheral blood specimen / Unknown Venipuncture / Unknown 09/16/2023 4:24 PM CDT 09/16/2023 4:41 PM CDT Shazia Arriaza MD LAB BLOOD ORDERABLES Final Result [facility] * Urine Culture (09/16/2023 4:24 PM CDT) [facility] Urine Culture Normal site mirna present. Generally of low significance. Correlate with clinical data and culture history. 09/18/2023 8:31 AM CDT [facility] Urine Voided urine specimen / Unknown Non-blood Collection / Unknown 09/16/2023 4:24 PM CDT 09/16/2023 4:41 PM CDT us Shazia Arriaza MD MICROBIOLOGY - GENERAL ORD ERABLES Final Result [facility] Unless otherwise noted, all lab tests performed by: Division of Pathology and Laboratory Medicine [address] [place] [id number] * T4 (09/16/2023 4:24 PM CDT) Pathologist [facility] Thyroxine 7.0 4.5 - 11.7 mcg/dL 09/16/2023 5:55 PM CDT [facility] Blood Peripheral blood specimen / Unknown Venipuncture / Unknown 09/16/2023 4:24 PM CDT 09/16/2023 4:41 PM CDT Shazia Arriaza MD LAB BLOOD ORDERABLES Final Result [facility] Unless otherwise noted, all lab tests performed by: Division of Pathology and Laboratory Medicine [address] [place] [id number] * Confirm ABORh (09/16/2023 4:23 PM CDT) [facility] Confirm O POS 09/16/2023 4:15 PM CDT [facility] Blood Peripheral blood specimen / Unknown Venipuncture / Unknown 09/16/2023 4:23 PM CDT 09/16/2023 4:41 PM CDT Shazia Arriaza MD BLOOD BANK TEST ORDERABLES Final Result [facility] [address] [place] [address] [id number] [place] [address] after 09/15/2023 Insurance MEDICARE PART A AND B MEDICARE PART A AND B Advance Directives * Full Code (Latest Code Status on File) Date Activated Date Inactivated Comments 04/12/2024 1:24 PM 04/12/2024 5:43 PM * Full Code Date Activated Date Inactivated Comments 01/02/2024 1:48 PM 01/03/2024 7:17 PM Care Teams Grain Cleaner Relationship Specialty Start Date End Date Margoth Souza MD [address] [place] [phone] [email or web address] PCP - General Urology 07/30/23 04/14/24 Eagle Zhu DO [address] [place] [id number] [email or web address] PCP - External Primary Care Provider Family Practice 04/08/24 Marianela Hutchinson MD [address] [place] [id number] [email or web address] PCP - General Gastrointestinal Medical Oncology 05/04/24 Mary Jane Cassidy MD [address] [place] [id number] [email or web address] Consulting Physician Endocrinology 12/09/23 Barry He MD [address] [place] [phone] [email or web address] Consulting Physician Internal Medicine 12/23/23 Patience Hunt MD [address] [place] [id number] [email or web address] Consulting Physician Endocrinology 12/31/23 Marianela Hutchinson MD [address] [place] [id number] [email or web address] Consulting Physician Gastrointestinal Medical Oncology 04/13/24 Margoth Souza MD [address] [place] [phone] [email or web address] Consulting Physician Urology 04/15/24 Ceci Nicholson MD [address] [place] [id number] [email or web address] Consulting Physician Internal Medicine 04/09/24 Sigifredo Davenport MD [address] [place] [id number] [email or web address] Consulting Physician Internal Medicine 06/29/24 Abilio Ng PAJeanC [address] [place] [id number] Physician Shower Screen Installer Interventional Radiology 10/02/23
[2024-09-14 03:23] LABS: Absolute Basophils 0.1 K/uL (0-0.5); Absolute Eosinophils 0.1 K/uL (0-0.5); Absolute Lymphocytes (CBC) 2.5 K/uL (0.7-4.9); Absolute Monocytes 0.6 K/uL (0.1-1.3); Absolute Neutrophil 4.2 K/uL (1.8-8.0); Basophils % 1.4 % (0-1.3); Eosinophils % 1.5 % (0-4.4); Hematocrit 37.7 % (39.6-49.0); Hemoglobin 12.9 g/dL (13.6-17.9); MCH 26.3 pg (27.0-35.0); MCHC 34.3 g/dL (32.0-36.0); MCV 76.9 fL (80-100); MPV 6.9 fL (7.6-11.3); Monocytes % 8.2 % (3.3-12.3); Neutrophils % 55.9 % (41.7-73.7); Nucleated Red Blood Cells % 0.1 % (0-0); Platelets 316 thou/uL (152-406)
[2024-09-14] MEDS ORDERED: PROMETHAZINE INJ 25 MG/ML AMP ONE (03:44)
[2024-09-14] MEDS ORDERED: NA CHLORIDE 0.9% 1,000 ML ONE (03:44)
[2024-09-14] MEDS ORDERED: HYDRALAZINE HCL 20 MG/ML VIAL ONE (03:49)
[2024-09-14 04:02] LABS: Albumin 3.5 g/dL (3.4-5.0); Albumin/Globulin Ratio 0.8 (1.1-1.8); Anion Gap 9.5 mEq/L (5.0-15.0); Bilirubin Total 0.3 mg/dL (0.2-1.0); Globulin 4.6 g/dL (2.3-3.5); Magnesium 1.6 mg/dL (1.6-2.4); Potassium 3.5 mEq/L (3.5-5.1); Protein, Total 8.1 g/dL (6.4-8.2)
[2024-09-14] MEDS ORDERED: ONDANSETRON 4 MG/2 ML VIAL ONE (04:35)
--- NOTE | 2024-09-14 05:35 | EDPHYS ---
Physician Documentation [facility] Name: Zeke Mackay Sr Age: 59 yrs Sex: Male : 1965 Arrival Date: 09/14/2024 Time: 02:46 Bed 7 Private MD: Ealge Zhu ED Physician Sylvain Leger HPI: 09/14 03:30 This 59 yrs old Male presents to ER via Ambulatory with complaints of Nausea/Vomiting. rt 03:30 Patient presents to the ED with nausea, vomiting. Reports a history of gastric cancer. rt States that the vomiting started up again at about 1 AM. States that usually promethazine is sufficient for his nausea. Denies any abdominal pain. Denies other acute complaints at this time, symptoms are moderate in severity, no other aggravating or alleviating factors.. 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 - Infectious Disease History:: Denies. - Social history:: Smoking status: Patient denies any tobacco usage or history of. - Family history:: not pertinent. ROS: 03:30 Constitutional: Negative for fever, chills, and weight loss, Cardiovascular: Negative rt for chest pain, palpitations, and edema, Respiratory: Negative for shortness of breath, cough, wheezing, and pleuritic chest pain, MS/Extremity: Negative for injury and deformity, Skin: Negative for injury, rash, and discoloration, Neuro: Negative for headache, weakness, numbness, tingling, and seizure, 03:30 Abdomen/GI: Positive for nausea and vomiting, Exam: 03:30 Constitutional: This is a well developed, well nourished patient who is awake, alert, rt and in no acute distress. Head/Face: Normocephalic, atraumatic. Chest/axilla: Normal chest wall appearance and motion. Nontender with no deformity. No lesions are appreciated. Cardiovascular: Regular rate and rhythm with a normal S1 and S2. No gallops, murmurs, or rubs. Normal PMI, no JVD. No pulse deficits. Respiratory: Lungs have equal breath sounds bilaterally, clear to auscultation and percussion. No rales, rhonchi or wheezes noted. No increased work of breathing, no retractions or nasal flaring. Abdomen/GI: Soft, non-tender, with normal bowel sounds. No distension or tympany. No guarding or rebound. No evidence of tenderness throughout. Skin: Warm, dry with normal turgor. Normal color with no rashes, no lesions, and no evidence of cellulitis. MS/ Extremity: Pulses equal, no cyanosis. Neurovascular intact. Full, normal range of motion. Neuro: Awake and alert, GCS 15, oriented to person, place, time, and situation. Cranial nerves II-XII grossly intact. Motor strength 5/5 in all extremities. Sensory grossly intact. Cerebellar exam normal. Normal gait. Vital Signs: 03:16 BP 218 / 101; Pulse 92; Resp 18; Temp 98.4; Pulse Ox 100% ; cp4 04:15 BP 203 / 87; Pulse 75; Resp 18; Pulse Ox 99% ; cp4 05:12 BP 188 / 86; Pulse 82; Resp 18; Temp 98.4; Pulse Ox 98% ; Pain 0/10; bm8 05:53 BP 168 / 86; Pulse 80; Resp 18; Temp 98.4; Pulse Ox 98% ; Pain 0/10; bm8 05:12 Pain Scale: Adult bm8 05:53 Pain Scale: Adult bm8 Alicia Coma Score: 05:12 Eye Response: spontaneous(4). Motor Response: obeys commands(6). Verbal Response: bm8 oriented(5). Total: 15. 05:53 Eye Response: spontaneous(4). Motor Response: obeys commands(6). Verbal Response: bm8 oriented(5). Total: 15. Procedures: 04:15 Peripheral line: by aseptic technique a peripheral line was placed in the right forearm rt vein, Ultrasound guidance was used. MDM: 03:08 Medical Screening Exam initiated rt 05:37 Differential diagnosis: Nausea, vomiting. Data reviewed: vital signs, nurses notes, lab rt test result(s). Consideration of Admission/Observation Escalation of care including admission/observation considered. Patient states that his nausea has significantly proved with medicines, labs appear to be at baseline, lipase is elevated but lower than the previous finding. Wishes to go home, instructed patient to follow-up as an outpatient.. I considered the following discharge prescriptions or medication management in the emergency department Medications were administered in the Emergency Department. See MAR. Test considered but Not performed: CT: Patient has had innumerable CT scans, does not wish to have a repeat CT scan, believe this is reasonable,. Care significantly affected by the following chronic conditions: Cancer. Counseling: I had a detailed discussion with the patient and/or guardian regarding the historical points, exam findings, and any diagnostic results supporting the discharge/admit diagnosis, lab results, the need for outpatient follow up, to return to the emergency department if symptoms worsen or persist or if there are any questions or concerns that arise at home. Response to treatment: the patient's symptoms have markedly improved after treatment. 09/14 03:08 Order name: CBC with Diff; Complete Time: 03:48 rt 09/14 03:08 Order name: CMP; Complete Time: 04:07 rt 09/14 03:08 Order name: Lipase; Complete Time: 04:07 rt 09/14 03:08 Order name: Magnesium; Complete Time: 04:07 rt Administered Medications: 03:53 Drug: NS 0.9% IV 1000 ml IV at 1 bolus Per protocol; to be given as a bolus over 60 bm8 minutes Route: IV; Rate: 1 bolus; Site: left forearm; 05:54 Follow up: Response: No adverse reaction; IV Status: Completed infusion bm8 03:53 Drug: Promethazine IVP 25 mg IVP once Route: IVP; Site: left forearm; bm8 05:54 Follow up: Response: No adverse reaction bm8 03:53 Drug: hydrALAZINE IVP 20 mg IVP once Route: IVP; Site: left forearm; bm8 05:54 Follow up: Response: No adverse reaction bm8 04:38 Drug: Ondansetron IVP 8 mg IVP once; over 2 minutes Route: IVP; Site: right forearm; cp4 05:53 Follow up: Response: No adverse reaction bm8 Disposition Summary: 09/14/24 05:35 Discharge Ordered Notes: Location: Home rt Problem: an acute exacerbation rt Symptoms: have improved rt Condition: Stable rt Diagnosis - Nausea with vomiting, unspecified rt Followup: rt - With: Eagle Zhu DO - When: 2 - 3 days - Reason: Discharge Instructions: - Discharge Summary Sheet rt - Nausea and Vomiting, Adult rt Forms: - Medication Reconciliation Form rt - Antibiotic Education rt - Prescription Opioid Use rt - Patient Portal Instructions rt - Leadership Thank You Letter rt Signatures: Dispatcher [employer] EDMS Sylvain Leger MD MD rt Emilia Segovia cp4 Jermaine Jacques, RN RN bm8 Corrections: (The following items were deleted from the chart) 03:09 03:09 CBC+H.LAB.BRZ ordered. EDMS EDMS 03:09 03:09 COMPREHENSIVE METABOLIC PANEL+C.LAB.BRZ ordered. EDMS EDMS 03:09 03:09 LIPASE+C.LAB.BRZ ordered. EDMS EDMS 03:09 03:09 MAGNESIUM+C.LAB.BRZ ordered. EDMS EDMS
--- NOTE | 2024-09-14 05:35 | ER ---
Nurse's Notes [facility] Name: Zeke Mackay Sr Age: 59 yrs Sex: Male : 1965 Arrival Date: 09/14/2024 Time: 02:46 Bed 7 Private MD: Eagle Zhu Diagnosis: Nausea with vomiting, unspecified Presentation: 09/14 03:16 Chief complaint: Patient states: nausea and vomiting since 0100. Coronavirus screen: cp4 Client denies travel out of the [place] in the last 14 days. At this time, the client does not indicate any symptoms associated with coronavirus-19. Ebola Screen: Patient negative for fever greater than or equal to 101.5 degrees Fahrenheit, and additional compatible Ebola Virus Disease symptoms Patient denies exposure to infectious person. Patient denies travel to an Ebola-affected area in the 21 days before illness onset. No symptoms or risks identified at this time. Initial Sepsis Screen: Does the patient meet any 2 criteria? HR > 90 bpm. No. Patient's initial sepsis screen is negative. Does the patient have a suspected source of infection? No. Patient's initial sepsis screen is negative. Risk Assessment: Do you want to hurt yourself or someone else? Patient reports no desire to harm self or others. Onset of symptoms was September 14, 2024 at 01:00. 03:16 Method Of Arrival: Ambulatory 4 03:16 Acuity: RICKEY 3 cp4 Triage Assessment: 03:19 General: Appears in no apparent distress. uncomfortable, Behavior is calm, cooperative, cp4 appropriate for age. Pain: Denies pain. EENT: No signs and/or symptoms were reported regarding the EENT system. Neuro: Level of Consciousness is awake, alert, obeys commands, Oriented to person, place, time, situation. Cardiovascular: Patient's skin is warm and dry. Respiratory: Airway is patent Respiratory effort is even, unlabored. GI: Abdomen is round non-distended, Bowel sounds present X 4 quads. Abd is soft and non tender X 4 quads. Reports nausea, vomiting. : No signs and/or symptoms were reported regarding the genitourinary system. Derm: No signs and/or symptoms reported regarding the dermatologic system. Musculoskeletal: No signs and/or symptoms reported regarding the musculoskeletal system. 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 - Infectious Disease History:: Denies. - Social history:: Smoking status: Patient denies any tobacco usage or history of. - Family history:: not pertinent. Screenin:20 [facility] ED Fall Risk Assessment (Adult) History of falling in the last 3 months, cp4 including since admission No falls in past 3 months (0 pts) Confusion or Disorientation No (0 pts) Intoxicated or Sedated No (0 pts) Impaired Gait No (0 pts) Mobility Assist Device Used No (0 pt) Altered Elimination No (0 pt) Score/Fall Risk Level 0 - 2 = Low Risk Oriented to surroundings, Maintained a safe environment, Assessed \T\ reinforced patient's understanding of fall precautions, Hourly rounding (assess needs \T\ fall precautionary measures) done. Abuse screen: Denies threats or abuse. Denies injuries from another. Nutritional screening: No deficits noted. Tuberculosis screening: No symptoms or risk factors identified. Assessment: 03:20 Reassessment: No changes from previously documented assessment. cp4 05:12 Reassessment: Patient appears in no apparent distress at this time. Patient and/or bm8 family updated on plan of care and expected duration. Pain level reassessed. Patient denies pain at this time. Patient states feeling better. Patient states symptoms have improved. GI: Patient currently denies nausea. Vital Signs: 03:16 BP 218 / 101; Pulse 92; Resp 18; Temp 98.4; Pulse Ox 100% ; cp4 04:15 BP 203 / 87; Pulse 75; Resp 18; Pulse Ox 99% ; cp4 05:12 BP 188 / 86; Pulse 82; Resp 18; Temp 98.4; Pulse Ox 98% ; Pain 0/10; bm8 05:53 BP 168 / 86; Pulse 80; Resp 18; Temp 98.4; Pulse Ox 98% ; Pain 0/10; bm8 05:12 Pain Scale: Adult bm8 05:53 Pain Scale: Adult bm8 Swan Coma Score: 05:12 Eye Response: spontaneous(4). Motor Response: obeys commands(6). Verbal Response: bm8 oriented(5). Total: 15. 05:53 Eye Response: spontaneous(4). Motor Response: obeys commands(6). Verbal Response: bm8 oriented(5). Total: 15. ED Course: 02:48 Patient arrived in ED. gm2 02:48 Eagle Zhu DO is Private Physician. gm2 02:48 Sylvain Leger MD is Attending Physician. rt 02:50 Emilia Segovia is Primary Nurse. cp4 03:10 Missed attempt(s): 20 gauge in right antecubital area. Bleeding controlled, band aid bm8 applied, catheter tip intact. 03:15 Missed attempt(s): 20 gauge in right forearm. Bleeding controlled, band aid applied, bm8 catheter tip intact. 03:18 Triage completed. cp4 03:19 Arm band placed on right wrist. Patient placed in waiting room. cp4 03:20 Bed in low position. Call light in reach. Side rails up X 1. cp4 03:20 No provider procedures requiring assistance completed. cp4 03:30 Missed attempt(s): 20 gauge in left upper arm. Bleeding controlled, band aid applied, bm8 catheter tip intact. 03:50 Initial lab(s) drawn, by nc, sent to lab. Inserted saline lock: 22 gauge in left cp4 forearm, using aseptic technique. Blood collected. Flushed with 10 mL NS. 05:34 Eagle Zhu DO is Referral Physician. rt 05:53 Provided Education on: post er care. bm8 05:53 IV discontinued, intact, bleeding controlled, No redness/swelling at site. Pressure bm8 dressing applied. Administered Medications: 03:53 Drug: NS 0.9% IV 1000 ml IV at 1 bolus Per protocol; to be given as a bolus over 60 bm8 minutes Route: IV; Rate: 1 bolus; Site: left forearm; 05:54 Follow up: Response: No adverse reaction; IV Status: Completed infusion bm8 03:53 Drug: Promethazine IVP 25 mg IVP once Route: IVP; Site: left forearm; bm8 05:54 Follow up: Response: No adverse reaction bm8 03:53 Drug: hydrALAZINE IVP 20 mg IVP once Route: IVP; Site: left forearm; bm8 05:54 Follow up: Response: No adverse reaction bm8 04:38 Drug: Ondansetron IVP 8 mg IVP once; over 2 minutes Route: IVP; Site: right forearm; cp4 05:53 Follow up: Response: No adverse reaction bm8 Medication: 03:20 VIS not applicable for this client. cp4 Outcome: 05:35 Discharge ordered by . rt 05:53 Discharged to home via wheelchair, with family, bm8 05:53 Condition: stable 05:53 Discharge instructions given to patient, Instructed on discharge instructions, follow up and referral plans. Demonstrated understanding of instructions, follow-up care, 05:54 Patient left the ED. bm8 Signatures: Sylvain Leger MD MD rt Potter, Christina cp4 Trina Reynoso 2 Jermaine Jacques, RN RN bm8
[2024-09-15 12:09] VITALS: TEMP 98.4
[2024-09-15 12:12] VITALS: O2SAT 98
[2024-09-15 12:15] VITALS: BP 168/86
== END 2024-09-14 05:54 | disposition home or self-care (01) ==
LOC: ER 02:46
DX: R11.2 Nausea with vomiting, unspecified (principal); Z85.89 Personal history of malignant neoplasm of other organs and systems; Z85.528 Personal history of other malignant neoplasm of kidney; Z85.01 Personal history of malignant neoplasm of esophagus; I10 Essential (primary) hypertension; Z95.1 Presence of aortocoronary bypass graft
CPT/HCPCS: 85025; 36415; 83735; 83690; 80053; 99284; J2550; J0360; J2405; J7030

== ENCOUNTER 2024-09-17 22:00 | Emergency (ER) | payer OTHER, BC ==
--- OUTSIDE RECORDS SUMMARY | 2024-09-17 22:07 | XMS REPORT | Clinical Summary ---
Author Name Unknown Organization Formerly [facility] Address [address] [place] [address] Care Team Providers Care Perinatal Tech Name Role Phone Margoth Souza MD Primary Care Provider [phone] Mary Jane Cassidy MD Unavailable [phone] Barry He MD Unavailable Patience Hunt MD Unavailable Eagle Zhu DO Unavailable [phone] Marianela Hutchinson MD Unavailable [phone] Margoth Souza MD Unavailable Ceci Nicholson MD Unavailable [phone] Marianela Hutchinson MD Primary Care Provider [phone] Sigifredo Davenport MD Unavailable Abilio Ng-C Unavailable [phone] Allergies No known active allergies Medications insulin [...] daily. 08/14/19 24 024 Discontinued dexAMETHasone (DECADRON) 1 mg tabletIndicatio ns:Adrenal mass [...] by Tylenol). 60 mL 4 3:43 PM FOUNTAIN MANAGER 04/15/20 025 Discontinued OLANZapine (ZyPREXA) 2.5 mg [...] 9% indicating poor diabetic control 01/02/2024 04/14/2024 group home current use of systemic steroid 01/02/2024 04/14/2024 Diabetic ketoacidosis 2023 Overview (01/01/2024): Hospitalized locally 12/03/2023-12/06/2023 Encounters Date Type Department Care Team Description 09/09/2024 6:30 PM CDT Infusion Ambulatory Treatment [place] [facility] [address] [facility], 8th [place] [address] Marianela Hutchinson MD Balason, Adda Rica F RN Adenocarcinoma of stomach (Primary Dx) 09/09/2024 Travel 09/07/2024 4:30 PM CDT Infusion Ambulatory Treatment [place] [facility] [address] [place] [address], 8th [place] [address] Marianela Hutchinson MD Castillo, Emmanuel, RN Adenocarcinoma of stomach (Primary Dx); Iron deficiency anemia, not otherwise specified 09/07/2024 1:00 PM CDT [facility] [address] [place] [address], 7th [place] [address] Marianela Hutchinson MD Adenocarcinoma of stomach (Primary Dx) 09/07/2024 10:41 AM CDT - 09/07/2024 11:59 PM CDT Hospital Encounter [facility] [address] [place] [address] Marianela Hutchinson MD Adenocarcinoma of stomach Discharge Disposition: Home 09/07/2024 Orders Only [facility] [address] [place] [address], 7th [place] [address] Marianela Hutchinson MD Adenocarcinoma of stomach (Primary Dx) 09/07/2024 Orders Only [facility] [address] [place] [address], 7th [place] [address] Radha Castellon [facility] Adenocarcinoma of stomach (Primary Dx); Iron deficiency anemia, not otherwise specified 09/07/2024 Travel 08/26/2024 7:41 PM CDT - 08/26/2024 11:59 PM CDT Hospital Encounter Ambulatory Treatment Center - [facility] Building [address] [place] [address], 2nd Floor, Elev[place] [address] Marianela Hutchinson MD Le, Lam, RN Adenocarcinoma of stomach (Primary Dx) Discharge Disposition: Home 08/24/2024 1:40 PM CDT [facility] [address] [place] [address] Main [facility], 7th [place] [address] Marianela Hutchinson MD Adenocarcinoma of stomach 08/24/2024 12:42 PM CDT - 08/24/2024 11:59 PM CDT Hospital Encounter Ambulatory Treatment Center - Main Building [address] [place] [address], 2nd Floor, [place] [address] Gillian Gomez PA-C Harrison, Kishanda S, RN Adenocarcinoma of stomach (Primary Dx) Discharge Disposition: Home 08/24/2024 11:16 AM CDT - 08/24/2024 12:41 PM CDT Hospital Encounter [facility] [address] [place] [address] Gillian Gomez PA-C Adenocarcinoma of stomach Discharge Disposition: Home 08/24/2024 Orders Only [facility] [address] [place] [address], 7th [place] [address] Marianela Hutchinson MD Adenocarcinoma of stomach (Primary Dx) 08/24/2024 Telephone [facility] [address] [place] [address], 7th [place] [address] Mony Saavedra RN 08/24/2024 Orders Only [facility] [address] [place] [address], 7th [place] [address] Radha Castellon, [facility] Adenocarcinoma of stomach (Primary Dx) 08/24/2024 Travel 08/24/2024 Orders Only Ambulatory Treatment Center - Main Building [address] [place] [address], 2nd Floor, [place] [address] Marianela Hutchinson MD Adenocarcinoma of stomach (Primary Dx) 08/21/2024 Telephone [facility] [address] [place] [address] Main [facility], 7th [place] [address] Milagros Rogers RN 08/17/2024 Orders Only [facility] [address] [place] [address], 7th [place] [address] Gillian Gomez PA-C Adenocarcinoma of stomach (Primary Dx) 08/06/2024 Orders Only [facility] [address] [place] [address], 7th [place] [address] Radha Castellon RPH 07/22/2024 Orders Only Ambulatory Treatment Center - [facility] [address] [facility], 8th [place] [address] Marianela Hutchinson MD Adenocarcinoma of stomach (Primary Dx) 07/21/2024 Telephone Ambulatory Treatment Center - [facility] [address] [facility], 8th [place] [address] Rosanna Álvarez, RN Chemotherapy Teaching 07/16/2024 2:40 PM FOUNTAIN MANAGER [facility] [address] [place] [address], [address] [place] [address] [place] [address] Marianela Hutchinson MD Adenocarcinoma of stomach (Primary Dx) 07/16/2024 Orders Only [facility] [address] [place] [address], [address] [place] [address] [place] [address] Marianela Hutchinson MD Adenocarcinoma of stomach (Primary Dx) 07/16/2024 Orders Only [facility] [address] [place] [address], [address] [place] [address] [place] [address] Radha Castellon [facility] Adenocarcinoma of stomach (Primary Dx) 07/16/2024 Travel 07/15/2024 10:08 AM FOUNTAIN MANAGER - 07/15/2024 11:59 PM FOUNTAIN MANAGER Hospital Encounter CT [facility] and Diagnostic [facility] [address] [place] [address], 3rd [place] [address] Mary Kay Santamaria APRN Adenocarcinoma of stomach Discharge Disposition: Home 07/15/2024 9:49 AM FOUNTAIN MANAGER - 07/15/2024 10:07 AM FOUNTAIN MANAGER Hospital Encounter [facility] [address] [place] [address] Mary Kay Santamaria, FRANK Adenocarcinoma of stomach Discharge Disposition: Home 07/07/2024 Orders Only [facility] Main Bldg, 7th [place] [address] Gillian Gomez PA-C Adenocarcinoma of stomach (Primary Dx) 07/06/2024 Telephone [facility] - Surgical Oncology [facility] Main Bldg, 7th [place] [address] Mary Kay Santamaria, HYSTER DRIVER 07/06/2024 Orders Only [facility] - Surgical Oncology [facility] Main Bldg, 7th [place] [address] Mary Kay Santamaria, FRANK 07/06/2024 Orders Only [facility] [address] [place], [place] [address]vd Main Bldg, 7th [place] [address] Gillian Gomez PA-C Adenocarcinoma of stomach (Primary Dx) 07/06/2024 Multidisciplinary Visit [facility] [address] [place], [place] [address]vd Main Bldg, 7th [place] [address] Gillian Gomez PA-C 07/06/2024 Orders Only [facility] [address] [place], [place] [address]vd Main Bldg, 7th [place] [address] Donnell Van Adenocarcinoma of stomach (Primary Dx) 07/02/2024 11:00 AM FOUNTAIN MANAGER Nutrition Clinical Nutrition For your Nutrition appointment location directions please call: Marianela Hutchinson MD Munder, Kathryn, RD Left without seen 07/02/2024 10:30 AM FOUNTAIN MANAGER [facility] - Surgical Oncology [address] [place], [place] [address]vd Main Bldg, 7th [place] [address] John Fong MD Adenocarcinoma of stomach 07/02/2024 Documentation [facility] - Surgical Oncology [address] [place], [place] [address] Main Bldg, 7th [place] [address] John Fong MD 06/30/2024 3:33 PM FOUNTAIN MANAGER Anesthesia Event Perioperative Evaluation and Management Center [address] [place] [address] Main [facility], 6th [place] [address] Lien Antonio RN 06/30/2024 12:25 PM FOUNTAIN MANAGER Anesthesia Event Endoscopy Center [address] [place] [address] Main [facility], 5th [place] [address] Susana Kelly MD 06/30/2024 12:00 PM FOUNTAIN MANAGER - 06/30/2024 12:45 PM FOUNTAIN MANAGER Surgery Endoscopy Center [address] [place] [address] Main [facility], 5th [place] [address] Brandon Alcala MD DIAGNOSTIC UPPER GASTROINTESTINAL ENDOSCOPY 06/30/2024 10:15 AM FOUNTAIN MANAGER - 06/30/2024 2:24 PM FOUNTAIN MANAGER Hospital Encounter Endoscopy Center [address] [place] [address], 5th [place] [address] Brandon Alcala MD Adenocarcinoma of stomach Discharge Disposition: Home 06/30/2024 Travel 06/29/2024 9:00 AM FOUNTAIN MANAGER Consult Perioperative Evaluation and Management [address] [place] [address], 6th [place] [address] Mary Kay Santamaria APRN Vu, Khanh D, MD Encounter for preprocedural cardiovascular examination (Primary Dx); Coronary arteriosclerosis, not otherwise specified; Cardiomyopathy, not otherwise specified; Hypertension; group home current use of 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; Type 2 diabetes mellitus with hyperglycemia; Dyslipidemia; Hyponatremia; Hyperkalemia; Adenocarcinoma of stomach; Paroxysmal atrial fibrillation; Hyperlipidemia, not otherwise specified 06/29/2024 8:00 AM FOUNTAIN MANAGER POEM Appointments Perioperative [facility] Management Center [address] [place] [address], 6th [place] [address] Marianela Hutchinson MD 06/29/2024 7:30 AM FOUNTAIN MANAGER - 06/29/2024 11:59 PM FOUNTAIN MANAGER Hospital Encounter [facility] - Cardiology [address] [place] [address] Main [facility], 2nd [place] [address] Mary Kay Santamaria, FRANK Adenocarcinoma of stomach Discharge Disposition: Home 06/29/2024 Travel 06/23/2024 Documentation [facility] [address] [place] [address], [facility] Floor Elevator [place] [id number] Mony Saavedra, RN 06/22/2024 12:20 PM FOUNTAIN MANAGER [facility] [address] [place] [address], [address] [place] [address] Elevator A [place] [id number] Marianela Hutchinson MD Adenocarcinoma, NOS of stomach, NOS 06/22/2024 Orders Only [facility] [address] [place] [address], [address] [place], [place] [address]ator [place] [phone] Radha Castellon, [facility] 06/22/2024 Travel 06/20/2024 10:45 AM FOUNTAIN MANAGER - 06/20/2024 11:59 PM FOUNTAIN MANAGER Hospital Encounter Diagnostic Imaging Center [address] [place] [address], 3rd Floor Elevator F [place] [id number] Adenocarcinoma, NOS of stomach, NOS; Malignant neoplasm of overlapping sites of esophagus Discharge Disposition: Home 06/20/2024 10:08 AM FOUNTAIN MANAGER - 06/20/2024 10:44 AM FOUNTAIN MANAGER Hospital Encounter [facility] [address] [place] [address] Gillian Gomez PA-C Adenocarcinoma, NOS of stomach, NOS Discharge Disposition: Home 06/16/2024 Telephone [facility] - Surgical Oncology [address] [place] [address], [address] [place] [address] [place] [address] Mary Kay Santamaria, FRANK 06/15/2024 1:30 PM FOUNTAIN MANAGER Infusion [facility] Treatment [facility] - [facility] [address] [facility], 8th Floor Elevator T [place] [phone] Marianela Hutchinson MD [facility], Jorge Tyson RN Adenocarcinoma of stomach (Primary Dx); Iron deficiency anemia, not otherwise specified 06/15/2024 12:40 PM FOUNTAIN MANAGER [facility] [address] [place] [address], [facility] [place] [address] Marianela Hutchinson MD Adenocarcinoma, NOS of stomach, NOS; Malignant neoplasm of overlapping sites of esophagus 06/15/2024 10:24 AM FOUNTAIN MANAGER - 06/15/2024 11:59 PM FOUNTAIN MANAGER Hospital Encounter Diagnostic Laboratory Center [facility] [place] [address] Marianela Hutchinson MD Adenocarcinoma of stomach; Adenocarcinoma, NOS of stomach, NOS Discharge Disposition: Home 06/15/2024 Orders Only [facility] [address] [place] [address] Main [facility], 7th [place] [address] Radha Castellon, [facility] Adenocarcinoma of stomach (Primary Dx) 06/15/2024 Orders Only [facility] [address] [place] [address], [facility] [place] [address] Gillian Gomez PA-C 06/15/2024 Travel 06/15/2024 Telephone [facility] - Gastroenterology, Hepatology & Nutrition [address] [place] [address] Main [facility], 7th Floor Elevator A [place] [phone] Arnaldo Araujo PA-C 06/15/2024 Multidisciplinary Visit [facility] [address] [place] [address], [facility] [place] [address] Lakeshia Pablo PA 06/15/2024 Orders Only [facility] [address] [place] [address] Main [facility], [facility] [place] [address] Marianela Hutchinson MD Adenocarcinoma of stomach (Primary Dx) 06/12/2024 Prep for Surgery [facility] - Gastroenterology, Hepatology & Nutrition [facility] Main [facility], 7th [place] [address] Arnaldo Araujo PA-C Adenocarcinoma of stomach (Primary Dx) 06/12/2024 Telephone [facility] - Surgical Oncology [facility] Main [facility], 7th [place] [address] Mary Kay Santamaria, FRANK 06/12/2024 Orders Only [facility] - Surgical Oncology [facility], 7th [place] [address] Mary Kay Santamaria APRN Adenocarcinoma of stomach (Primary Dx) 06/10/2024 Orders Only [facility] - Surgical Oncology [address] [place] [address], 7th [place] [address] Mary Kay Santamaria APRN Adenocarcinoma of stomach (Primary Dx) 06/05/2024 Telephone [facility] - Gastroenterology, Hepatology & Nutrition [address] [place] [address], 7th [place] [address] Arnaldo Araujo PA-C 06/03/2024 5:30 PM FOUNTAIN MANAGER Infusion Ambulatory Treatment [facility] - [facility] [address] [facility], 8th [place] [address] Marianela Hutchinson MD Lewandowski, Teresa M, RN Adenocarcinoma of stomach (Primary Dx) 06/03/2024 Travel 06/02/2024 Telephone [facility] [address] [place] [address], 7th [place] [address] Mony Saavedra RN 06/01/2024 1:00 PM FOUNTAIN MANAGER Infusion [facility] [address] [facility] [place], Floor 6 [place] [address] Marianela Hutchinson MD Shaik, Anna Marie B, RN Adenocarcinoma of stomach (Primary Dx); Iron deficiency anemia, not otherwise specified 06/01/2024 10:53 AM FOUNTAIN MANAGER - 06/01/2024 11:59 PM FOUNTAIN MANAGER Hospital Encounter [facility] [address] [place] [address] Marianela Hutchinson MD Adenocarcinoma of stomach; Iron deficiency anemia, not otherwise specified Discharge Disposition: Home 06/01/2024 Orders Only [facility] [address] [place] [address], 7th [place] [address] Marianela Hutchinson MD 06/01/2024 Orders Only [facility] [address] [place] [address], [facility] [place] [address] Radha Castellon, [facility] Adenocarcinoma of stomach (Primary Dx); Iron deficiency anemia, not otherwise specified 06/01/2024 Travel 06/01/2024 Orders Only [facility] - Ambulatory Treatment Center [address] [facility], Floor 6 [place] [address] Marianela Hutchinson MD Adenocarcinoma of stomach (Primary Dx) 05/26/2024 Telephone [facility] - Gastroenterology, Hepatology & Nutrition [address] [place] [address] Main [facility], 7th [place] [address] Arnaldo Araujo, PA-C 05/22/2024 Telephone [facility] - Gastroenterology, Hepatology & Nutrition [address] [place] [address], 7th [place] [address] Arnaldo Araujo, PA-C 05/22/2024 Orders Only [facility] - Gastroenterology, Hepatology & Nutrition [address] [place] [address], 7th [place] [address] Van Gene, PA-C Candidal esophagitis (Primary Dx) 05/20/2024 4:30 PM FOUNTAIN MANAGER - 05/20/2024 11:59 PM FOUNTAIN MANAGER Hospital Encounter Ambulatory Treatment [place] - [address], 2nd Floor, [place] [address] Marianela Hutchinson MD Lewandowski, Teresa M RN Adenocarcinoma of stomach Discharge Disposition: Home 05/19/2024 12:44 PM FOUNTAIN MANAGER Anesthesia Event [facility]oscopy Center [address] [place] [address], 5th [place] [address] Maurice Ferrera MD Thomas, Ashly PROFESSOR OF MANAGEMENT 05/19/2024 12:00 PM FOUNTAIN MANAGER - 05/19/2024 1:10 PM FOUNTAIN MANAGER Surgery [facility]oscopy Center [address] [place] [address], 5th [place] [address] Brandon Alcala MD UPPER GASTROINTESTINAL ENDOSCOPY OF ESOPHAGUS, STOMACH, OR DUODENUM ANDJ ADJACENT STRUCTURES, WITH ENDOSCOPIC ULTRASOUND EXAMINATION 05/19/2024 11:17 AM FOUNTAIN MANAGER - 05/19/2024 2:49 PM FOUNTAIN MANAGER Hospital Encounter Endoscopy Center [address] [place] [address], 5th [place] [address] Brandon Alcala MD Adenocarcinoma of stomach Discharge Disposition: Home 05/19/2024 Travel 05/18/2024 1:00 PM FOUNTAIN MANAGER [facility] - Amb[facility] [address] [facility], Floor 6 [place] [address] Marianela Hutchinson MD Rupp, Alexa B, RN Adenocarcinoma of stomach (Primary Dx) 05/18/2024 12:20 PM FOUNTAIN MANAGER Follow[facility]Up [facility] [address] [place] [address], [facility] [place] [address] Marianela Hutchinson MD Adenocarcinoma, NOS of stomach, NOS 05/18/2024 11:00 AM FOUNTAIN MANAGER POEM Appointments Perioperative Evaluation and Management Center [address] [place] [address], [facility] [place] [address] Marianela Hutchinson MD 05/18/2024 10:32 AM FOUNTAIN MANAGER - 05/18/2024 11:59 PM FOUNTAIN MANAGER Hospital Encounter [facility] [address] [place] [address] Gillian Gomez PA-C Adenocarcinoma, NOS of stomach, NOS Discharge Disposition: Home 05/18/2024 Orders Only [facility] [address] [place] [address], [address] [place], [place] [address]ator [place] [phone] Marianela Hutchinson MD Adenocarcinoma of stomach (Primary Dx) 05/18/2024 Orders Only [facility] [address] [place] [address], [address] [place] [address] Radha Castellon [facility] Adenocarcinoma of stomach (Primary Dx); Iron deficiency anemia, not otherwise specified 05/18/2024 Travel 05/15/2024 11:59 PM FOUNTAIN MANAGER Anesthesia Event Perioperative Evaluation [facility] Management Center [address] [place] [address], [address] [place] [address] Elevator A [place] [phone] Eri Lynne, RN 05/06/2024 5:30 PM FOUNTAIN MANAGER Infusion [facility] - [facility] [address] [facility], 8th [place] [address] Marianela Hutchinson MD Pagara, Leni S RN Adenocarcinoma of stomach 05/04/2024 12:36 PM FOUNTAIN MANAGER - 05/04/2024 11:59 PM FOUNTAIN MANAGER Hospital Encounter Ambulatory Treatment [facility] - [facility] [address] [place] [address], 2nd Floor, Elev[place] [address] Gillain Gomez PA-C Jo, Edifia Sungsoon, RN Adenocarcinoma of stomach (Primary Dx) Discharge Disposition: Home 05/04/2024 12:20 PM FOUNTAIN MANAGER [facility] [address] [place] [address], 7th [place] [address] Marianela Hutchinson MD Adenocarcinoma, NOS of stomach, NOS 05/04/2024 11:10 AM FOUNTAIN MANAGER - 05/04/2024 12:35 PM FOUNTAIN MANAGER Hospital Encounter [facility] [address] [place] [address] Gillian Gomez PA-C Adenocarcinoma, NOS of stomach, NOS; Adenocarcinoma of stomach Discharge Disposition: Home 05/04/2024 Orders Only [facility] [address] [place] [address], 7th [place] [address] Marianela Hutchinson MD Adenocarcinoma of stomach (Primary Dx) 05/04/2024 Orders Only [facility] [address] [place] [address], 7th [place] [address] Radha Castellon Werner Adenocarcinoma of stomach (Primary Dx) 05/04/2024 Travel 04/30/2024 Orders Only [facility] - Surgical Oncology [address] [place] [address], 7th [place] [address] Mary Kay Santamaria APRN Adenocarcinoma of stomach (Primary Dx); Paroxysmal atrial fibrillation; Hyperlipidemia, not otherwise specified; Type 2 diabetes mellitus with hyperglycemia 04/27/2024 8:05 PM FOUNTAIN MANAGER Ancillary Procedure [facility] [address] [place] [address] Cancer 04/27/2024 8:00 PM FOUNTAIN MANAGER Ancillary Procedure Image Library [address] [place], [place] [id number] Cancer 04/27/2024 Orders Only [facility] [address] [place] [address], 7th [place] [address] Donnell Van Adenocarcinoma of stomach (Primary Dx) 04/24/2024 Documentation [facility]ascular Access [facility] Procedures [facility] [address] [facility], 8th [place] [address] Mary Kay Santamaria, FRANK 04/24/2024 Orders Only [facility] - Surgical Oncology [address] [place] [address], [facility] [place] [address] Mary Kay Santamaria, HYSTER DRIVER Adenocarcinoma, NOS of stomach, NOS (Primary Dx) 04/24/2024 Telephone [facility] - Surgical Oncology [address] [place] [address], [facility] [place] [address] Mary Kay Santamaria, FRANK 04/22/2024 Lab Requisition [facility] Sincere Moralez MD Jain, MD Sybil 04/21/2024 Orders Only [facility] [address] [place] [address], [facility] [place] [address] Gillian Gomez PA-C Adenocarcinoma, NOS of stomach, NOS (Primary Dx); Adenocarcinoma of stomach 04/16/2024 Telephone [facility] ASKPAB[facility]eto PHYSICIAN [address] [place] [address] 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, mounter [employer] Call 04/15/2024 10:09 AM FOUNTAIN MANAGER Anesthesia Event MAIN OR [address] [place] [address] Meenakshi Crowe MD Miller, Wendy, PAXTON 04/15/2024 10:05 AM FOUNTAIN MANAGER - 04/15/2024 1:25 PM FOUNTAIN MANAGER Surgery MAIN OR [address] [place] [address] John Fong MD ROBOTIC ASSISTED SURGICAL LAPAROSCOPY 04/15/2024 7:32 AM FOUNTAIN MANAGER - 04/15/2024 11:50 PM FOUNTAIN MANAGER Hospital Encounter MAIN OR [address] [place] [phone] John Fong MD Adenocarcinoma of stomach (Primary Dx) Discharge Disposition: Home 04/15/2024 Travel 04/14/2024 2:30 PM FOUNTAIN MANAGER [facility] [address] [place] [address], 7th [place] [address] Gillian Gomez PA-C Badgwell, Brian, MD Adenocarcinoma, NOS of stomach, NOS (Primary Dx); Nausea 04/14/2024 Documentation [facility] [address] [place] [address], 7th [place] [address] John Fong MD 04/13/2024 3:00 PM FOUNTAIN MANAGER [facility] [address] [place] [address], 7th [place] [address] Marianela Hutchinson MD Mass of stomach (Primary Dx) 04/13/2024 2:02 PM FOUNTAIN MANAGER Anesthesia Event [facility] [address] [place] [address], 6th [place] [address] Curtis Moctezuma PA 04/12/2024 8:22 AM FOUNTAIN MANAGER - 04/12/2024 3:42 PM FOUNTAIN MANAGER Hospital Encounter MAIN P06B [address] [place] [phone] Nghia Zhu MD Elsayem, Ahmed, MD Nausea and vomiting (Primary Dx); Gastric cancer; Pancreatitis Discharge Disposition: Left Against Medical Advice 04/12/2024 Travel 04/09/2024 8:25 PM FOUNTAIN MANAGER Ancillary Procedure [facility] [address] [place] [address] Margoth Souza MD Cancer 04/09/2024 8:20 PM FOUNTAIN MANAGER Ancillary Procedure [facility] [address] [place] [address] Margoth Souza MD Cancer 04/09/2024 8:15 PM FOUNTAIN MANAGER Ancillary Procedure [facility] [address] [place] [address] Margoth Souza MD Cancer 04/09/2024 8:10 PM FOUNTAIN MANAGER Ancillary Procedure [facility] [address] [place] [address] Margoth Souza MD Cancer 04/09/2024 8:05 PM FOUNTAIN MANAGER Ancillary Procedure [facility] [address] [place] [address] Margoth Souza MD Cancer 04/09/2024 8:00 PM FOUNTAIN MANAGER Ancillary Procedure [facility] [address] [place] [address] Margoth Souza MD Cancer 04/09/2024 10:48 AM FOUNTAIN MANAGER - 04/09/2024 11:59 PM FOUNTAIN MANAGER Hospital Encounter [facility] [address] [place], [place] [phone] Ceci Nicholson MD Encounter for other preprocedural examination; Atherosclerosis of coronary 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, not otherwise specified; 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 Discharge Disposition: Home 04/09/2024 10:00 AM FOUNTAIN MANAGER POEM Appointments [facility] [address] [place] [address], 6th [place] [address] Margoth Souza MD 04/09/2024 9:56 AM FOUNTAIN MANAGER - 04/09/2024 10:47 AM FOUNTAIN MANAGER Hospital Encounter [facility] [address] [place] [address], 2nd [place] [address] Ceci Nicholson MD Adenocarcinoma of stomach; Hyperlipidemia, not otherwise specified; Encounter for other preprocedural examination; Atherosclerosis of coronary 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, not otherwise specified Discharge Disposition: Home 04/09/2024 9:00 AM FOUNTAIN MANAGER Consult Perioperative Evaluation and Management [address] [place] [address], 6th [place] [address] SantamariaMary Kay APRN Misoi, Mercy W, MD Encounter for other preprocedural examination (Primary Dx); Adenocarcinoma of stomach; Paroxysmal atrial fibrillation; Hypertension; 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; Hyperlipidemia, not otherwise specified; Current use of 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; Atherosclerosis of coronary 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, not otherwise specified 04/09/2024 Travel 04/08/2024 Prep for Surgery [facility] [address] [place] [address], [address] [place] [phone] Mary Kay Santamaria APRN Adenocarcinoma of stomach (Primary Dx); Mass of stomach 04/08/2024 Orders Only [facility] [address] [place] [address], [address] [place] [phone] Mary Kay Santamaria APRN Adenocarcinoma of stomach (Primary Dx); Paroxysmal atrial fibrillation; Hypertension; 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; Hyperlipidemia, not otherwise specified; Current use of 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 04/08/2024 Orders Only [facility] [address] [place] [address], [address] [place] [phone] Gillian Gomez PA-C Adenocarcinoma, NOS of stomach, NOS (Primary Dx) 04/06/2024 [facility] [address] [place] [address], [address] [place] [address] [place] [address] Roberto Poole PA 04/06/2024 Orders Only [facility] [address] [place] [address], [facility] [place] [address] Roberto Poole PA Mass of stomach (Primary Dx) 04/06/2024 [facility] [address], [address] [place] [address] [place] [address] Roberto Poole PA Mass of stomach (Primary Dx) 04/06/2024 Telephone [facility] [address] [place] [address], [address] [place] [address] [place] [address] Anais Meng RN 02/11/2024 Travel 02/10/2024 3:30 PM CDT Telemedicine [facility] [address] [place] [address], 7th Floor Elevator [place] [phone] Margoth Souza MD Renal mass (Primary Dx) 01/02/2024 7:15 AM CDT Ancillary Procedure MAIN OR [address] [place] [address] Margoth Souza MD 01/02/2024 7:00 AM CDT - 01/02/2024 11:40 AM CDT Surgery MAIN OR [address] [place] [address] Margoth Souza MD ROBOTIC ASSISTED PARTIAL NEPHRECTOMY 01/02/2024 6:58 AM CDT Anesthesia Event MAIN OR [address] [place] [address] Alonzo Liu MD Majekodumi, Jessy, CRNA 01/02/2024 5:04 AM CDT - 01/03/2024 5:05 PM CDT Hospital Encounter MAIN P09B [address] [place] [address] Margoth Souza MD Renal mass (Primary Dx) Discharge Disposition: Home 01/02/2024 Travel 12/31/2023 1:04 PM CDT - 12/31/2023 11:59 PM CDT Hospital Encounter CT Imaging and Diagnostic Imaging [address] [place] [address], 3rd Floor Elevator [place] [phone] Margoth Souza MD Renal mass Discharge Disposition: Home 12/31/2023 8:00 AM CDT Consult Endocrine Center [address] [place] [address], 6th Floor Elevator [place] [phone] Nakia Kirby APRN Khan, Sonya, MD Type 2 diabetes mellitus with hyperglycemia [E11.65] (Primary Dx); Pre-surgery evaluation 12/30/2023 9:30 AM CDT Office Visit [facility] [address] [place] [address], 7th [place] [address] Margoth Suoza MD Renal mass 12/30/2023 Travel 12/30/2023 Telephone Endocrine Center [address] [place], [place] [phone] Winnie Archibald, RN Appointment (Cannot get internet-phone broke) 12/30/2023 Orders Only [facility], [address] [place] [phone] Roberto Poole PA Renal mass (Primary Dx) 12/29/2023 Orders Only Endocrine Center [address] [place], [place] [phone] Veronica Del Castillo APRN 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); Endocrine/metabolic screening; Renal cell carcinoma <Left side> 12/25/2023 8:36 AM CDT Anesthesia Event [facility] [address] [place] [address] Lien Antonio, RN 12/23/2023 10:30 AM CDT Consult Perioperative Evaluation and Management [address] [place], [place] [phone] Margoth Souza MD Oh, Jeong, MD Encounter for other preprocedural examination (Primary Dx); Renal mass; Hyperlipidemia, not otherwise specified 12/23/2023 9:00 AM CDT POEM Appointments [facility] [address] [place] [address] Margoth Souza MD Pre-surgery evaluation (Primary Dx) 12/23/2023 8:45 AM CDT - 12/23/2023 11:59 PM CDT Hospital Encounter [facility] [address] [place] [address] Margoth Souza MD Renal mass Discharge Disposition: Home 12/23/2023 Travel 12/09/2023 9:33 AM CDT - 12/09/2023 11:59 PM CDT Hospital Encounter [facility] [address] [place] [address] Veronica Del Castillo APRN 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; Endocrine/metabolic screening Discharge Disposition: Home 12/09/2023 8:30 AM CDT Consult End[facility] Center [address] [place] [address], 6th [place] [address] Mary Jane Cassidy MD 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); Endocrine/metabolic screening; Renal cell carcinoma <Left side> 12/09/2023 Travel 10/23/2023 Orders Only [facility] [address] [place] [address], 7th [place] [address] Roberto Poole PA Renal mass (Primary Dx); Adrenal mass 10/03/2023 9:30 AM CDT - 10/03/2023 11:59 PM CDT Hospital Encounter Interventional Radiology [address] [place] [address], 4th [place] [address] Shazia Arriaza MD McRae, Stephen, MD Renal mass Discharge Disposition: Home 10/03/2023 8:30 AM CDT - 10/03/2023 9:29 AM CDT Hospital Encounter [facility] [address] [place] [address] Margoth Souza MD Renal mass Discharge Disposition: Home 10/03/2023 Travel 10/02/2023 8:24 AM CDT - 10/02/2023 11:59 PM CDT Hospital Encounter Interventional Radiology [address] [place] [address], 4th [place] [address] Margoth Souza MD Ho, Thanh-Trang D, PA-C Encounter for other preprocedural examination (Primary Dx); Renal mass; 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 Discharge Disposition: Home 10/02/2023 Travel 09/24/2023 7:46 AM CDT - 09/24/2023 11:59 PM CDT Hospital Encounter [facility] [address] [place] [address] Roberto Poole PA Adrenal mass Discharge Disposition: Home 09/20/2023 Orders Only [facility] [address] [place] [address], 7th [place] [address] Roberto Poole PA Adrenal mass (Primary Dx) 09/19/2023 11:45 AM CDT Ancillary Procedure X-Ray Outpatient Center [address] [place] [address], 7th [place] [address] Shazia Arriaza MD Renal mass 09/19/2023 9:20 AM CDT - 09/19/2023 11:59 PM CDT Hospital Encounter [facility] [address] [place] [address] Shazia Arriaza MD Adenoma, NOS of adrenal gland, NOS <Left> Discharge Disposition: Home 09/19/2023 Orders Only Interventional Radiology [address] [place] [address], 4th [place] [address] Abilio gN D, ALBERT-Adams Renal mass (Primary Dx) 09/19/2023 Travel 09/19/2023 Telephone MD [facility] [address] [place] [address] Barbara Rees MA after 09/18/2023 Surgical History Surgery Date Site/Laterality Comments TOE AMPUTATION x2, 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, 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 APPENDECTOMY 05/20/1973 - 05/19/1974 Open WRIST SURGERY Left HAND SURGERY Right HIP ARTHRODESIS W/ ILIAC CRE ST BONE GRAFT Bilateral For hand surgeries CERVICAL SPINE SURGERY C3-6 fusion, x2 KS LAPAROSCOPY SURG PARTIAL NEPHRECTOMY 01/02/2024 Abdomen/Left Procedure: ROBOTIC ASSISTED PARTIAL NEPHRECTOMY; Surgeon: Margoth Souza MD; Location: MAIN OR; Service: UROLOGY KS ULTRASONIC GUIDANCE INTRAOPERATIVE 01/02/2024 Left Procedure: INTROPERATIVE ULTRASOUND - PERFORMED BY SURGEON; Surgeon: Margoth Souza MD; Location: MAIN OR; Service: UROLOGY CORONARY ARTERY BYPASS GRAFT 01/07/2024 KS LAPS ABD PRTM&OMENTUM DX W/WO SPEC BR/WA SPX 04/15/2024 Abdomen/N/A Procedure: ROBOTIC ASSISTED SURGICAL LAPAROSCOPY; Surgeon: John Fong MD; Location: MAIN OR; Service: SURG ONC - GASTRIC/HIPEC Medical devices from this surgery are in the Medical Devices section. KS FLUORO CENTRAL VENOUS ACC ESS DEV PLACEMENT 04/15/2024 Neck/N/A Procedure: FLUORO GUIDANCE FOR CENTRAL VENOUS ACCESS DEVICE PLACEMENT, REPLACEMENT, OR REMOVAL; Surgeon: John Fong MD; Location: MAIN OR; Service: SURG ONC - GASTRIC/HIPEC Medical devices from this surgery are in the Medical Devices section. KS US VASC ACCESS SITS VSL P ATENCY NDL ENTRY 04/15/2024 N/A Procedure: US GUIDANCE WITH EVAL OF POTENTIAL ACCESS SITES, REALTIME US VISUALIZATION OF VASC NEEDLE ENTRY; Surgeon: John Fong MD; Location: MAIN OR; Service: SURG ONC - GASTRIC/HIPEC Medical devices from this surgery are in the Medical Devices section. KS INSJ TUNNELED CTR VAD W/S UBQ PORT AGE 5 YR/> 04/15/2024 Neck/N/A Procedure: PORT-A-CATH PLACEMENT; Surgeon: John Fong MD; Location: MAIN OR; Service: SURG ONC - GASTRIC/HIPEC Medical devices from this surgery are in the Medical Devices section. KS ESOPHAGOGASTRODUODENOSCOP Y US SCOPE W/ADJ STRXRS 05/19/2024 Esophagus/N/A Procedure: UPPER GASTROINTESTINAL ENDOSCOPY OF ESOPHAGUS, STOMACH, OR DUODENUM ANDJ ADJACENT STRUCTURES, WITH ENDOSCOPIC ULTRASOUND EXAMINATION; Surgeon: Brandon Alcala MD; Location: MAIN ENDOSCOPY; Service: GASTROENTEROLOGY KS ESOPHAGOGASTRODUODENOSCOP Y TRANSORAL DIAGNOSTIC 06/30/2024 Esophagus/N/A Procedure: [...] 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 Gender Identity Not on file Sexual Orientation Not on file Occupation Industry Job Start Date Job End Date retired from [employer] Not on file N ot on file Not on file Travel History Travel Start Travel End [place] 04/12/2024 04/12/2024 Obstetrics History Last Filed Vital [...] 188 cm (6' 2") 05/19/2024 11:53 AM FOUNTAIN MANAGER Body Mass Index 23.58 05/19/2024 11:53 AM FOUNTAIN MANAGER Plan of Treatment Upcoming Encounters Date Type Department Care Team (Latest Contact Info) Description 09/21/2024 Orders Only Ambulatory Treatment Center - [facility] [address] [facility], 8th [place] [address] Marianela Hutchinson MD [address] [place] [phone] [email or web address] Adenocarcinoma of stomach (Primary Dx) 09/21/2024 1:45 PM CDT Appointment [facility] [address] [place] [phone] Marianela Hutchinson MD [address] [place] [phone] [email or web address] 09/21/2024 2:20 PM CDT Follow-Up [facility] [address] [place] [address], 7th [place] [address] Marianela Hutchinson MD [address] [place] [phone] [email or web address] 09/21/2024 4:30 PM CDT Infusion [facility] - [facility] [address] [place] [address], 8th [place] [address] Marianela Hutchinson MD [address] [place] [phone] [email or web address] 09/23/2024 3:45 PM CDT Infusion [facility] [address] [facility], Floor 6 [place] [address] Marianela Hutchinson MD [address] [place] [phone] [email or web address] 10/05/2024 11:45 AM CDT Appointment Diagnostic [facility] [address] [place] [address] Marianela Hutchinson MD [address] [place] [phone] [email or web address] 10/05/2024 1:45 PM CDT Infusion [facility] - [place] [address] [facility], 8th [place] [address] Marianela Hutchinson MD [address] [place] [phone] [email or web address] 10/19/2024 9:30 AM CDT Infusion Ambulatory Treatment Center - [facility] [address] [facility], 8th [place] [address] Marianela Hutchinson MD [address] [place] [phone] [email or web address] 11/16/2024 9:45 AM CDT Appointment [facility] [address] [place] [address] Marianela Hutchinson MD [address] [place] [phone] [email or web address] 02/01/2025 11:30 AM CDT Appointment Diagnostic [facility] [address] [place] [address] Veronica Del Castillo, HYSTER DRIVER [facility] [place] [address] [email or web address] 02/01/2025 11:[address] Imaging and Diagnostic Imaging [address] [place] [address], 3rd [place] [address] Veronica Del Castillo, HYSTER DRIVER [address] [place] [phone] [email or web address] 02/01/2025 3:00 PM CDT Follow-Up Endocrine Center [address] [place] [address], 6th [place] [address] Mary Jane Cassidy MD [address] [place] [phone] [email or web address] 02/05/2025 10:45 AM CDT Lab [facility] [address] [place] [address], [address] [place] [address] Margoth Souza MD [address] [place] [phone] [email or web address] 02/05/2025 11:15 AM CDT Ancillary Procedure X-Ray Outpatient Center [address] [place] [address], 7th [place] [address] Margoth Souza MD [address] [place] [phone] [email or web address] 02/05/2025 11:55 AM CDT Ancillary Procedure CT Imaging [address] [place] [address], [facility] Floor [facility] [place] [address] Margoth Souza MD [address] [place] [phone] [email or web address] 02/08/2025 2:30 PM CDT Telemedicine [facility] [address] [place] [address], [facility] [place] [address] Margoth Souza MD [address] [place] [phone] [email or web address] Maintenance Due Date Last Done Comments COVID-19 Vaccine (#1) 01/09/1969 Pneumococcal Vaccine: 50+ Years (1 of 2 - PCV) 983 01/09/1975 Influenza Vaccine (Season Ended) 2025 08/05/19 19 Medical Devices Implanted Type Area Hydroelectric Mechanic Device Identifier Shelf Expiration Date Model / Serial / Lot Slade Muhammad 6fr - [id number] Implanted:Qty: 1 on 04/15/2024 by John Fong MD at [facility] Implant Right: Neck BARD ACCESS SYSTEMS 12/17/2024 [id number] / / [id number] Procedures Procedure Name Priority Date/Time Associated Diagnosis [...] PELVIS W CONTRAST Routine 07/15/2024 4:38 PM FOUNTAIN MANAGER Adenocarcinoma of stomach .CBC Routine 07/15/2024 10:01 AM FOUNTAIN MANAGER Adenocarcinoma of stomach CARCINOEMBRYONIC ANTIGEN Routine 025 10:01 AM FOUNTAIN MANAGER Adenocarcinoma of stomach LACTATE DEHYDROGENASE Routine 07/15/2024 10:01 AM FOUNTAIN MANAGER Adenocarcinoma of stomach PHOSPHORUS LEVEL Routine 07/15/2024 10:01 AM FOUNTAIN MANAGER Adenocarcinoma of stomach MAGNESIUM LEVEL Routine 07/15/2024 10:01 AM FOUNTAIN MANAGER Adenocarcinoma of stomach COMPREHENSIVE METABOLIC PANEL Routine 10:01 AM FOUNTAIN MANAGER Adenocarcinoma of stomach COMPLETE BLOOD COUNT W/ DIFFERENTIAL Routine 07/15/2024 10:01 AM FOUNTAIN MANAGER Adenocarcinoma of stomach RESEARCH PROTOCOL [id number] Routine 07/15 10:01 AM FOUNTAIN MANAGER Adenocarcinoma of stomach MDA AP IHC WORKUP Routine 07/07/2024 12:29 PM FOUNTAIN MANAGER Adenocarcinoma of stomach POC GLUCOSE SCREEN Routine 06/30/2024 1:23 PM FOUNTAIN MANAGER PATHOLOGY BIOPSY INTERPRETATION Routine 06/30/2024 12:51 PM FOUNTAIN MANAGER Adenocarcinoma of stomach KS ESOPHAGOGASTRODUODENOSCOP Y TRANSORAL DIAGNOSTIC 06/30/2024 12:15 PM FOUNTAIN MANAGER Adenocarcinoma of stomach Case Notes 06/12 per gene to schedule on 06/30, per tor to schedule 06/30 thru lunch last AM case, slot held to offer. LVM and sent mychart to schedule-DC Special Needs CARE DIRECTOR RN CHRIS COMPLETE 06/18.CARE DIRECTOR RN CHRIS LVM FOR DAUGHTER WITH DETAILED INSTRUCTIONS FOR PROCEDURE IN ADDITION TO HOLD ON PLAVIX FOR 5 DAYS.CARE DIRECTOR RN CHRIS LVJames 1ST CALL 06/16. POC CHEM 8 Routine 06/30/2024 11:10 AM FOUNTAIN MANAGER POC GLUCOSE SCREEN Routine 06/30/2024 10:52 AM FOUNTAIN MANAGER POC CHEM 8 Routine 06/29/2024 9:54 AM FOUNTAIN MANAGER EKG, 12-LEAD (SCHEDULED) Routine 06/29/2024 Adenocarcinoma of stomach PETCT F18 FDG (FLUORODEOXYGLUCOSE) WITH CONTRAST Routine 06/20/2024 12:42 PM FOUNTAIN MANAGER Adenocarcinoma, NOS of stomach, NOS Malignant neoplasm of overlapping sites of esophagus POC GLUCOSE SCREEN Routine 06/20/2024 11:06 AM FOUNTAIN MANAGER .CBC Routine 06/20/2024 10:35 AM FOUNTAIN MANAGER Adenocarcinoma, NOS of stomach, NOS CARCINOEMBRYONIC ANTIGEN Routine 025 10:35 AM FOUNTAIN MANAGER Adenocarcinoma, NOS of stomach, NOS LACTATE DEHYDROGENASE Routine 06/20/2024 10:35 AM FOUNTAIN MANAGER Adenocarcinoma, NOS of stomach, NOS PHOSPHORUS LEVEL Routine 06/20/2024 10:35 AM FOUNTAIN MANAGER Adenocarcinoma, NOS of stomach, NOS MAGNESIUM LEVEL Routine 06/20/2024 10:35 AM FOUNTAIN MANAGER Adenocarcinoma, NOS of stomach, NOS COMPREHENSIVE METABOLIC PANEL Routine 10:35 AM FOUNTAIN MANAGER Adenocarcinoma, NOS of stomach, NOS COMPLETE BLOOD COUNT W/ DIFFERENTIAL Routine 06/20/2024 10:35 AM FOUNTAIN MANAGER Adenocarcinoma, NOS of stomach, NOS .CBC Routine 06/15/2024 10:39 AM FOUNTAIN MANAGER Adenocarcinoma of stomach CARCINOEMBRYONIC ANTIGEN Routine 025 10:39 AM FOUNTAIN MANAGER Adenocarcinoma, NOS of stomach, NOS LACTATE DEHYDROGENASE Routine 06/15/2024 10:39 AM FOUNTAIN MANAGER Adenocarcinoma, NOS of stomach, NOS PHOSPHORUS LEVEL Routine 06/15/2024 10:39 AM FOUNTAIN MANAGER Adenocarcinoma, NOS of stomach, NOS MAGNESIUM LEVEL Routine 06/15/2024 10:39 AM FOUNTAIN MANAGER Adenocarcinoma, NOS of stomach, NOS COMPREHENSIVE METABOLIC PANEL Routine 10:39 AM FOUNTAIN MANAGER Adenocarcinoma of stomach COMPLETE BLOOD COUNT W/ DIFFERENTIAL Routine 06/15/2024 10:39 AM FOUNTAIN MANAGER Adenocarcinoma of stomach .CBC Routine 06/01/2024 11:10 AM FOUNTAIN MANAGER Adenocarcinoma of stomach TRANSFERRIN Routine 06/01/2024 11:10 AM FOUNTAIN MANAGER Iron deficiency anemia, not otherwise specified Adenocarcinoma of stomach FERRITIN Routine 06/01/2024 11:10 AM FOUNTAIN MANAGER Iron deficiency anemia, not otherwise specified Adenocarcinoma of stomach IRON LEVEL Routine 06/01/2024 11:10 AM FOUNTAIN MANAGER Iron deficiency anemia, not otherwise specified Adenocarcinoma of stomach COMPREHENSIVE METABOLIC PANEL Routine 11:10 AM FOUNTAIN MANAGER Adenocarcinoma of stomach COMPLETE BLOOD COUNT W/ DIFFERENTIAL Routine 06/01/2024 11:10 AM FOUNTAIN MANAGER Adenocarcinoma of stomach POC GLUCOSE SCREEN Routine 05/19/2024 1:52 PM FOUNTAIN MANAGER PATHOLOGY BIOPSY INTERPRETATION Routine 05/19/2024 1:10 PM FOUNTAIN MANAGER Adenocarcinoma of stomach KS ESOPHAGOGASTRODUODENOSCOP Y US SCOPE W/ADJ STRXRS 05/19/2024 12:34 PM FOUNTAIN MANAGER Adenocarcinoma of stomach Case Notes 04/24- WAITING FOR TRIAGE TO SD FOR 05/01- Special Needs CARE DIRECTOR RN [place] Call Completed 04/30/24ad laproscopy on 04/15/24 POC GLUCOSE SCREEN Routine 05/19/2024 12:21 PM FOUNTAIN MANAGER .CBC Routine 05/18/2024 10:55 AM FOUNTAIN MANAGER Adenocarcinoma, NOS of stomach, NOS CARCINOEMBRYONIC ANTIGEN Routine 024 10:55 AM FOUNTAIN MANAGER Adenocarcinoma, NOS of stomach, NOS LACTATE DEHYDROGENASE Routine 05/18/2024 10:55 AM FOUNTAIN MANAGER Adenocarcinoma, NOS of stomach, NOS PHOSPHORUS LEVEL Routine 05/18/2024 10:55 AM FOUNTAIN MANAGER Adenocarcinoma, NOS of stomach, NOS MAGNESIUM LEVEL Routine 05/18/2024 10:55 AM FOUNTAIN MANAGER Adenocarcinoma, NOS of stomach, NOS COMPREHENSIVE METABOLIC PANEL Routine 10:55 AM FOUNTAIN MANAGER Adenocarcinoma, NOS of stomach, NOS COMPLETE BLOOD COUNT W/ DIFFERENTIAL Routine 05/18/2024 10:55 AM FOUNTAIN MANAGER Adenocarcinoma, NOS of stomach, NOS .CBC Routine 05/04/2024 11:34 AM FOUNTAIN MANAGER Adenocarcinoma, NOS of stomach, NOS RESEARCH PROTOCOL [id number] Routine 05/04 11:34 AM FOUNTAIN MANAGER Adenocarcinoma of stomach CARCINOEMBRYONIC ANTIGEN Routine 024 11:34 AM FOUNTAIN MANAGER Adenocarcinoma, NOS of stomach, NOS LACTATE DEHYDROGENASE Routine 05/04/2024 11:34 AM FOUNTAIN MANAGER Adenocarcinoma, NOS of stomach, NOS PHOSPHORUS LEVEL Routine 05/04/2024 11:34 AM FOUNTAIN MANAGER Adenocarcinoma, NOS of stomach, NOS MAGNESIUM LEVEL Routine 05/04/2024 11:34 AM FOUNTAIN MANAGER Adenocarcinoma, NOS of stomach, NOS COMPREHENSIVE METABOLIC PANEL Routine 11:34 AM FOUNTAIN MANAGER Adenocarcinoma, NOS of stomach, NOS COMPLETE BLOOD COUNT W/ DIFFERENTIAL Routine 05/04/2024 11:34 AM FOUNTAIN MANAGER Adenocarcinoma, NOS of stomach, NOS VERIFY CATHETER TIP PLACEMENT Routine 3:50 PM FOUNTAIN MANAGER Adenocarcinoma of stomach POC GLUCOSE SCREEN Routine 04/15/2024 3:21 PM FOUNTAIN MANAGER XR CHEST 1 VW PORTABLE Routine 2:45 PM FOUNTAIN MANAGER POC GLUCOSE SCREEN Routine 04/15/2024 1:05 PM FOUNTAIN MANAGER POC GLUCOSE SCREEN Routine 04/15/2024 12:52 PM FOUNTAIN MANAGER CYTOLOGY NON-NEWSPAPER CORRESPONDENT INTERPRETATION Routine 04/15/2024 12:33 PM FOUNTAIN MANAGER Adenocarcinoma of stomach PATHOLOGY SURGICAL INTERPRETATION Routine 04/15/2024 12:13 PM FOUNTAIN MANAGER Adenocarcinoma of stomach FL CENTRAL VENOUS PLACE EXCHANGE Routine 04/15/2024 11:40 AM FOUNTAIN MANAGER Adenocarcinoma of stomach POC GLUCOSE SCREEN Routine 04/15/2024 9:22 AM FOUNTAIN MANAGER KS INSJ TUNNELED CTR VAD W/SUBQ PORT AGE 5 YR/> 04/15/2024 9:16 AM FOUNTAIN MANAGER Adenocarcinoma of stomach Special Needs MTL@0800 KS US VASC ACCESS SITS VSL PATENCY NDL ENTRY 04/15/2024 9:16 AM FOUNTAIN MANAGER Adenocarcinoma of stomach Special Needs MTL@0800 KS FLUORO CENTRAL VENOUS ACCESS DEV PLACEMENT 04/15/2024 9:16 AM FOUNTAIN MANAGER Adenocarcinoma of stomach Special Needs MTL@0800 KS LAPS ABD PRTM&OMENTUM DX W/WO SPEC BR/WA SPX 04/15/2024 9:16 AM FOUNTAIN MANAGER Adenocarcinoma of stomach Special Needs MTL@0800 CT ABDOMEN PELVIS W CONTRAST Routine 11:18 AM FOUNTAIN MANAGER .CBC Routine 04/12/2024 9:04 AM FOUNTAIN MANAGER LIPASE LEVEL Routine 04/12/2024 9:04 AM FOUNTAIN MANAGER AMYLASE LEVEL Routine 04/12/2024 9:04 AM FOUNTAIN MANAGER LACTATE DEHYDROGENASE Routine 04/12/2024 9:04 AM FOUNTAIN MANAGER FRACTIONATED BILIRUBIN Routine 9:04 AM FOUNTAIN MANAGER PHOSPHORUS LEVEL Routine 04/12/2024 9:04 AM FOUNTAIN MANAGER MAGNESIUM LEVEL Routine 04/12/2024 9:04 AM FOUNTAIN MANAGER COMPREHENSIVE METABOLIC PANEL Routine 9:04 AM FOUNTAIN MANAGER COMPLETE BLOOD COUNT W/ DIFFERENTIAL Routine 04/12/2024 9:04 AM FOUNTAIN MANAGER .CBC Routine 04/09/2024 11:09 AM FOUNTAIN MANAGER Encounter for other preprocedural examination Atherosclerosis of coronary 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, not otherwise specified THYROID STIMULATING HORMONE Routine 03/21 11:09 AM FOUNTAIN MANAGER Encounter for other preprocedural examination Atherosclerosis of coronary 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, not otherwise specified HEMOGLOBIN A1C Routine 04/09/2024 11:09 AM FOUNTAIN MANAGER 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 Encounter for other preprocedural examination COMPREHENSIVE METABOLIC PANEL Routine 11:09 AM FOUNTAIN MANAGER Encounter for other preprocedural examination Atherosclerosis of coronary 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, not otherwise specified COMPLETE BLOOD COUNT W/ DIFFERENTIAL Routine 04/09/2024 11:09 AM FOUNTAIN MANAGER Encounter for other preprocedural examination Atherosclerosis of coronary 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, not otherwise specified EKG, 12-LEAD (SCHEDULED) Routine 04/09/2024 Adenocarcinoma of stomach Hyperlipidemia, not otherwise specified Encounter for other preprocedural examination Atherosclerosis of coronary 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, not otherwise specified PATHOLOGY OUTSIDE INTERPRETATION Routine 04/02/[address] ABDOMEN AND PELVIS Routine 2023 8:21 AM FOUNTAIN MANAGER Cancer OSI CHEST Routine 03/23/2024 7:37 PM FOUNTAIN MANAGER Cancer OSI CT CHEST ABDOMEN PELVIS Routine 08/2023 7:37 PM FOUNTAIN MANAGER Cancer OSI CHEST Routine 03/23/2024 7:37 PM FOUNTAIN MANAGER Cancer OSI CT CHEST Routine 03/22/2024 8:21 AM FOUNTAIN MANAGER Cancer OSI CT ABDOMEN AND PELVIS Routine [...] INTRAOPERATIVE US STAT 01/02/2024 7:13 AM CDT KS ULTRASONIC GUIDANCE INTRAOPERATIVE 01/02/2024 6:08 AM CDT Renal mass Special Needs MTL@0500Le [id number]:Please collect and send tissue to pathology window with appropriate label. KS LAPAROSCOPY SURG PARTIAL NEPHRECTOMY 01/02/2024 6:08 AM CDT Renal mass Special Needs MTL@0500Le [id number]:Please collect and send tissue to pathology window [...] EKG, 12-LEAD (SCHEDULED) Routine 09/19/2023 Renal mass after 09/18/2023 Results * (ABNORMAL) .CBC (09/07/2024 10:49 AM CDT) Only the most recent of12 resultswithin the time period is included. White Blood Cell 5.9 4.1 - 10.5 K/uL 09/07/2024 11:02 AM CDT [facility] Red Blood Cell 3.90(L) 4.30 - 6.04 M/uL 09/07/2024 11:02 AM CDT [facility] Hemoglobin 9.9(L) 13.3 - 17.4 g/dL 09/07/2024 11:02 AM CDT [facility] Hematocrit 31.5(L) 39.5 - 51.8 % 09/07/2024 11:02 AM CDT [facility] Mean Cell Volume 81(L) 82 - 99 fL 09/07/2024 11:02 AM CDT [facility] Mean Cell Hemoglobin 25.4(L) 26.6 - 33.2 pg 09/07/2024 11:02 AM CDT [facility] Mean Cell Hemoglobin Concentration 31.4 31.1 - 35.2 g/dL 09/07/2024 11:02 AM [facility] RDW-SD 41.9 37.5 - 49.7 fL 09/07/2024 11:02 AM [facility] Red Cell Diameter Width 14.4 11.6 - 15.5 % 09/07/2024 11:02 AM [facility] Platelet 241 160 - 397 K/uL 09/07/2024 11:02 AM [facility] Mean Platelet Volume 9.0(L) 9.1 - 12.6 fL 09/07/2024 11:02 AM [facility] INRBC 0.0 0.0 - 0.1 /100 WBC 09/07/2024 11:02 AM [facility] Comment: The INRBC (instrument NRBC) value reflects the enumeration of nucleated red blood cells contained in a 200uL sample of whole blood analyzed by the instrument. This value may differ from the NRBC value reported in a manual differential, which is based on a 100 cell differential. Neutrophil % 62.8 43.2 - 72.7 % 09/07/2024 11:02 AM [facility] Lymphocyte % 23.6 16.8 - 46.2 % 09/07/2024 11:02 AM [facility] Monocyte % 10.3 5.1 - 12.5 % 09/07/2024 11:02 AM [facility] Eosinophil % 2.2 0.4 - 6.3 % 09/07/2024 11:02 AM [facility] Basophil % 0.9 0.2 - 1.4 % 09/07/2024 11:02 AM [facility] IGRE % 0.2 0.1 - 1.5 % 09/07/2024 11:02 AM [facility] Comment:The IGRE% includes M etamyelocytes, Myelocytes and Promyelocytes. Neutrophil Abs 3.68 1.95 - 7.25 K/uL 09/07/2024 11:02 AM [facility] Lymphocyte Abs 1.38 1.01 - 3.24 K/uL 09/07/2024 11:02 AM [facility] Monocyte Abs 0.60 0.24 - 0.85 K/uL 09/07/2024 11:02 AM CDT [facility] Eosinophil Abs 0.13 0.02 - 0.50 K/uL 09/07/2024 11:02 AM CDT [facility] Basophil Abs 0.05 0.02 - 0.09 K/uL 09/07/2024 11:02 AM CDT [facility] IG Abs 0.01 0.01 - 0.12 K/uL 09/07/2024 11:02 AM CDT [facility] Blood Peripheral blood specimen / Unknown Port / Unknown 09/07/2024 10:49 AM CDT 09/07/2024 10:50 AM CDT us Marianela Hutchinson MD LAB BLOOD ORDERABLES Final Re sult [facility] Unless otherwise noted, all lab tests performed by: Division of Pathology and Laboratory Medicine [address] [place] [id number] * (ABNORMAL) Comprehensive Metabolic Panel (09/07/2024 10:49 AM CDT) Only the most recent of11 resultswithin the time period is included. Bilirubin Total <0.3 0.0 - 1.2 mg/dL 09/07/2024 11:49 AM CDT [facility] Comment:Indocyanine Green (I CG) may cause falsely elevated bilirubin results. Total and direct bilirubin must not be measured from samples containing indocyanine green. False elevation of total bilirubin can be seen in patients with IgG concentrations above 28 g/L. eGFR 92 >=60 mL/min/1. 73 sq. m 09/07/2024 11:49 AM CDT [facility] Comment: The eGFRcr is calculated [...] 6.4 - 8.3 gm/dL 09/07/2024 11:49 AM T [facility] Calcium Level Total 8.5 8.2 - 10.2 mg/dL 09/07/2024 11:49 AM [facility] Alkaline Phosphatase 94 40 - 129 U/L 09/07/2024 11:49 AM [facility] Albumin Level 3.4(L) 3.5 - 5.2 gm/dL 09/07/2024 11:49 AM T [facility] AST 15 <=40 U/L 09/07/2024 11:49 AM [facility] ALT 9 <=41 U/L 09/07/2024 11:49 AM [facility] Sodium Level 138 136 - 145 mmol/L 09/07/2024 11:49 AM [facility] Potassium Level 3.6 3.4 - 4.5 mmol/L 09/07/2024 11:49 AM [facility] Chloride 102 98 - 107 mmol/L 09/07/2024 11:49 AM [facility] CO2 29 22 - 29 mmol/L 09/07/2024 11:49 AM [facility] Anion Gap 7 4 - 14 mmol/L 09/07/2024 11:49 AM [facility] Creatinine 0.95 0.67 - 1.17 mg/dL 09/07/2024 11:49 AM [facility] BUN <4(L) 6 - 23 mg/dL 09/07/2024 11:49 AM [facility] Glucose Level 150(H) 70 - 99 mg/dL 09/07/2024 11:49 AM CDT [facility] Comment: Effective 12/14/15, the glucose reference intervals have been updated based on [place] [employer] guidelines (Standards of Medical Care [...] 10:49 AM CDT 09/07/2024 10:50 AM CDT Marianela Hutchinson MD LAB BLOOD ORDERABLES Final Re sult Performing Organization Address City/[facility]/ZIP Co de Phone Number [facility] Unless otherwise noted, all lab tests performed by: Division of Pathology and Laboratory Medicine [address] [place] [id number] * (ABNORMAL) Phosphorus Level (09/07/2024 10:49 AM CDT) Only the most recent of8 resultswithin the time period is included. Phosphorus Level 2.4(L) 2.5 - 4.5 mg/dL 09/07/2024 11:49 AM CDT [facility] Blood Peripheral blood specimen / Unknown Port / Unknown 09/07/2024 10:49 AM CDT 09/07/2024 10:50 AM CDT Gillian Gomez PA-C LAB BLOOD ORDERABLES Final Result Performing Organization Address City/[facility]/ZIP Co de Phone Number [facility] Unless otherwise noted, all lab tests performed by: Division of Pathology and Laboratory Medicine [address] [place] [id number] * Magnesium Level (09/07/2024 10:49 AM CDT) Only the most recent of8 resultswithin the time period is included. Magnesium Level 1.8 1.6 - 2.6 mg/dL 09/07/2024 11:49 AM CDT [facility] Blood Peripheral blood specimen / Unknown Port / Unknown 09/07/2024 10:49 AM CDT 09/07/2024 10:50 AM CDT Gillian Gomez PA-C LAB BLOOD ORDERABLES Final Result Performing Organization Address [facility] de Phone Number [facility] Unless otherwise noted, all lab tests performed by: Division of Pathology and Laboratory Medicine [address] [place] [phone] * LDH (09/07/2024 10:49 AM CDT) Only the most recent of8 resultswithin the time period is included. Pathologist [facility] LDH 148 135 - 225 U/L 09/07/2024 11:49 AM CDT [facility] Blood Peripheral blood specimen / Unknown Port / Unknown 09/07/2024 10:49 AM CDT 09/07/2024 10:50 AM CDT Narrative [facility] - 09/07/2024 11:49 AM CDT Results greater than 1651 U/L may not be reliable due to matrix effect with extended dilution as it exceeds the stretcher leveler operator helper's recommended limit. Caution should be exercised when interpreting such values and done in conjunction with clinical context. Gillian Gomez PA-C LAB BLOOD ORDERABLES Final Result Performing Organization Address City/[facility] de Phone Number [facility] Unless otherwise noted, all lab tests performed by: Division of Pathology and Laboratory Medicine [address] [place] [id number] * CEA (09/07/2024 10:49 AM CDT) Only the most recent of7 resultswithin the time period is included. Pathologist [facility] Carcinoembryonic Antigen 1.9 <=3.8 ng/mL 09/07/2024 12:08 PM CDT [facility] Blood Peripheral blood specimen / Unknown Port / Unknown 09/07/2024 10:49 AM CDT 09/07/2024 10:50 AM CDT Narrative [facility] - 09/07/2024 12:08 PM CDT Reference Ranges (age 20-69 years): Non-smoker: <= 3.8 ng/mL Smoker: <= 5.5 ng/mL This test is measured by electrochemiluminescence immunoassay on Cornelius Nikki immunoassay analyzers. Results obtained in different methods are not interchangeable. Gillian Gomez PA-C LAB BLOOD ORDERABLES Final Result [facility] Unless otherwise noted, all lab tests performed by: Division of Pathology and Laboratory Medicine [address] [place] [phone] * CT Chest Abdomen Pelvis with Contrast (07/15/2024 4:38 PM FOUNTAIN MANAGER) Anatomical Region Laterality Modality Abdomen, Pelvis, Chest Computed Tomography 07/15/2024 5:39 PM FOUNTAIN MANAGER Impressions 07/15/2024 9:45 PM FOUNTAIN MANAGER 1. Redemonstration of diffuse wall thickening of [...] and potentially actionable. Narrative 07/15/2024 9:45 PM FOUNTAIN MANAGER FULL RESULT: Examination: CT CHEST ABDOMEN PELVIS [...] and potentially actionable. Mary Kay Nevayolis Santamaria APRN IMG CT ORDERABLES Final Result * Research Protocol [id number] (07/15/2024 10:01 AM FOUNTAIN MANAGER) Only the most recent of2 resultswithin the time period is included. [facility] Research Protocol Specimen Specimen Collected, Ready for Pickup. 07/15/2024 12:00 PM FOUNTAIN MANAGER [facility] Blood Venipuncture / Unknown 07/15/2024 10:01 AM FOUNTAIN MANAGER 07/15/2024 10:10 AM FOUNTAIN MANAGER Marianela Hutchinson MD RESEARCH LAB Z CODES Final Re sult [facility] Unless otherwise noted, all lab tests performed by: Division of Pathology and Laboratory Medicine [address] [place] [address] * IHC Workup (07/07/2024 12:29 PM FOUNTAIN MANAGER) Tissue 07/07/2024 12:2 9 PM FOUNTAIN MANAGER 07/07/2024 12:29 PM FOUNTAIN MANAGER Gillian Gomez PA-C, [facility] BIOMARKER ORDERABLE S Final Result [facility] [place] [address], * (ABNORMAL) POC Glucose Screen - Fingerstick (06/30/2024 1:23 PM FOUNTAIN MANAGER) Only the most recent of24 resultswithin the time period is included. [facility] Glucose Screen 168(H) 70 - 99 mg/dL 06/30/2024 1:25 PM FOUNTAIN MANAGER [facility] POC Sample Type Capillary 06/30/2024 1:25 PM FOUNTAIN MANAGER [facility] Blood 06/30/2024 1:23 PM FOUNTAIN MANAGER 06/30/2024 1:25 PM FOUNTAIN MANAGER Narrative [facility] - 06/30/2024 1:25 PM FOUNTAIN MANAGER Capillary blood samples, e.g. obtained by fingerstick, [...] ORDERABLES - DE VICE Final Result [facility] Unless otherwise noted, all lab tests performed by: Division of Pathology and Laboratory Medicine [address] [place] [address] * Pathology Biopsy Interpretation (06/30/2024 12:51 PM FOUNTAIN MANAGER) Only the most recent of3 resultswithin the time period is included. Addendum 1 By immunohistochemistry, approximately 10% of the tumor cells show weakly to moderately cytoplasmic staining for claudin 18. By immunohistochemistry the combined positive score (CPS) for PD-L1 is <1. 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 07/10/2024 8:47 AM FOUNTAIN MANAGER [facility] Gross Description A: Esophagus, lower esophageal ulcer at 37cm: Multiple soft light castillo tissue fragments, 0.7 x 0.6 x 0.1 cm in aggregate, entirely submitted in A1. ET 07/10/2024 8:47 AM [facility] Biomarker Block(s) Block for biomarker testing: A1 07/10/2024 8:47 AM [facility] Disclaimer "Some tests reported here may have been developed and performance characteristics determined by [facility] Pathology and Laboratory Medicine. These tests have not been specifically cleared or approved by the U.S. Food and Drug Administration. If applicable, controls were reviewed and showed appropriate reactivity." 07/10/2024 8:47 AM [facility] Tissue (Esophagus) 06/30/2024 12:51 PM FOUNTAIN MANAGER 06/30/2024 2:51 PM [facility] us Brandon Galo MD LAB PATHOLOGY ORDERA BLES Edited Result - Final [id number] [place] [address], * (ABNORMAL) POC Chem 8 (06/30/2024 11:10 AM FOUNTAIN MANAGER) Only the most recent of2 resultswithin the time period is included. POC Sodium 136(L) 138 - 146 mmol/L 06/30/2024 11:13 AM [facility] POC Potassium 4.5 3.5 - 4.9 mmol/L 06/30/2024 11:13 AM [facility] POC Chloride 100 98 - 109 mmol/L 06/30/2024 11:13 AM [facility] POC VTCO2 27 24 - 29 mmol/L 06/30/2024 11:13 AM [facility] POC Anion Gap 14 10 - 20 mmol/L 06/30/2024 11:13 AM [facility] POC BUN 30(H) 8 - 26 mg/dL 06/30/2024 11:13 AM [facility] POC Creatinine 1.1 0.6 - 1.3 mg/dL 06/30/2024 11:13 AM [facility] Comment:Medications, especia lly hydroxyurea or supplements, such as ascorbate, can interfere with test results causing a falsely and significantly higher result than expected. If a problem is suspected with a patient's result, a sample should be sent to the laboratory for confirmatory testing. POC I Glu 182(H) 70 - 99 mg/dL 06/30/2024 11:13 AM [facility] Comment:Medications, especia lly hydroxyurea or supplements, such as ascorbate, can interfere with test results causing a falsely and significantly higher result than expected. If a problem is suspected with a patient's result, a sample should be sent to the laboratory for confirmatory testing. POC Ionized Calcium 1.26 1.12 - 1.32 mmol/L 06/30/2024 11:13 AM [facility] POC Hct 39.0 38.0 - 51.0 % 06/30/2024 11:13 AM [facility] POC Hgb 13.3 12.0 - 17.0 gm/dL 06/30/2024 11:13 AM [facility] Comment:Hematocrit values fr om the [...] standard. POC Sample Type Venous 11:13 AM [facility] POC eGFR 77 >=60 mL/min/1.7 3 sq. m 06/30/2024 11:13 AM [facility] Comment: The eGFRcr [...] for CKD. Blood 06/30/2024 11:1 0 AM FOUNTAIN MANAGER 06/30/2024 11:13 AM FOUNTAIN MANAGER Narrative [facility] - 06/30/2024 11:13 AM FOUNTAIN MANAGER Method description: The i-STAT is an analyzer [...] DE VICE Final Result Performing Organization Address [facility] de Phone Number [facility] Unless otherwise noted, all lab tests performed by: Division of Pathology and Laboratory Medicine [address] [place] [phone] * EKG, 12-Lead (Scheduled) (06/29/2024) Only the most recent of3 resultswithin the time period is included. Mary Kay Santamaria APRN ECG ORDERABLES Final R esult Performing Organization Address [facility] Co de Phone Number [facility] * PETCT F18 FDG (Fluorodeoxyglucose) with contrast (06/20/2024 12:42 PM FOUNTAIN MANAGER) Anatomical Region Laterality Modality Whole Body Positron Emissio n Tomography (PET) 06/20/2024 3:10 PM FOUNTAIN MANAGER Impressions 06/20/2024 4:38 PM FOUNTAIN MANAGER Biopsy-proven malignancy in the region of the [...] and potentially actionable. Narrative 06/20/2024 4:38 PM FOUNTAIN MANAGER FULL RESULT: Examination: 18F-FDG-PET/CT with contrast, 06/20/2024 [...] * Transferrin with TIBC (06/01/2024 11:10 AM FOUNTAIN MANAGER) Transferrin 211 200 - 360 mg/dL 06/01/2024 12:15 PM FOUNTAIN MANAGER [facility] Total Iron Binding Capacity 295 250 - 450 mcg/dL 06/01/2024 12:15 PM FOUNTAIN MANAGER [facility] Blood Peripheral blood specimen / Unknown Venipuncture / Unknown 06/01/2024 11:10 AM FOUNTAIN MANAGER 06/01/2024 11:23 AM FOUNTAIN MANAGER Marianela Hutchinson MD LAB BLOOD ORDERABLES Final Re sult [facility] Unless otherwise noted, all lab tests performed by: Division of Pathology and Laboratory Medicine [address] [place] [id number] * (ABNORMAL) Iron Level (06/01/2024 11:10 AM FOUNTAIN MANAGER) Iron Level 38(L) 59 - 158 mcg/dL 06/01/2024 12:15 PM FOUNTAIN MANAGER [facility] Is patient fasting? No 06/01/2024 12:15 PM FOUNTAIN MANAGER [facility] Blood Peripheral blood specimen / Unknown Venipuncture / Unknown 06/01/2024 11:10 AM FOUNTAIN MANAGER 06/01/2024 11:23 AM FOUNTAIN MANAGER Marianela Hutchinson MD LAB BLOOD ORDERABLES Final Re sult Performing Organization Address [facility] de Phone Number [facility] Unless otherwise noted, all lab tests performed by: Division of Pathology and Laboratory Medicine [address] [place] [address] Unless otherwise noted, all lab tests performed by: Division of Pathology and Laboratory Medicine [address] [place] [address] * Ferritin Level (06/01/2024 11:10 AM FOUNTAIN MANAGER) Ferritin Level 59 30 - 400 ng/mL 06/01/2024 12:15 PM FOUNTAIN MANAGER [facility] Blood Peripheral blood specimen / Unknown Venipuncture / Unknown 06/01/2024 11:10 AM FOUNTAIN MANAGER 06/01/2024 11:23 AM FOUNTAIN MANAGER Narrative [facility] - 06/01/2024 12:15 PM FOUNTAIN MANAGER Reference range established for age 20 - 60 years Marianela Hutchinson MD LAB BLOOD ORDERABLES Final Re sult Performing Organization Address [facility] de Phone Number [facility] Unless otherwise noted, all lab tests performed by: Division of Pathology and Laboratory Medicine [address] [place] [address] * Tip Verification Central Vascular Access Device (04/15/2024 3:50 PM FOUNTAIN MANAGER) Narrative John Fong MD - 04/15/2024 3:50 PM FOUNTAIN MANAGER John Fong MD 04/15/2024 3:50 PM Central Vascular Access Device Tip Verification Performed by: John Fong MD Authorized by: John Fong MD CVAD Properties Date device placed: 04/15/2024 Device placement location: [facility] Catheter Type: Implanted venous port Catheter lumen: Single lumen Vein location: Internal jugular vein Laterality: Right Tip in good position and cleared for infusion us John Fong MD IV THERAPY ORDERABLES Final Re sult * XR Chest 1 View Portable (04/15/2024 2:45 PM FOUNTAIN MANAGER) Anatomical Region Laterality Modality Chest Digital Radiogra phy 04/15/2024 2:50 PM FOUNTAIN MANAGER Impressions 04/15/2024 2:53 PM FOUNTAIN MANAGER 1. Right infusion port catheter terminates over [...] and potentially actionable. Narrative 04/15/2024 2:53 PM FOUNTAIN MANAGER FULL RESULT: Examination: XR CHEST 1 VW [...] IMAGING ORDERAB LES Final Result * Cytology Non-Gluer Machine Operator Interpretation (04/15/2024 12:33 PM FOUNTAIN MANAGER) Gross Description 4 Pap Stain Slides 750 ml. clear yellow fluid Specimen concentrated by cytocentrifugation technique 4 4:07 PM FOUNTAIN MANAGER [facility] Major Classification [facility]/benign 4 4:07 PM [facility] Diagnosis Peritoneal washing: No metastatic carcinoma identified Reactive mesothelial cells and histiocytes 4 4:07 PM FOUNTAIN MANAGER [facility] Retained/Biomark er Testing SR:4S 4 4:07 PM FOUNTAIN MANAGER [facility] Informational Points Some tests reported here may have been developed and performance characteristics determined by [facility]. These tests have not been specifically cleared or approved by the U.S. Food and Drug Administration. 4 4:07 PM FOUNTAIN MANAGER [facility] Washing (Peritoneal Washing) 04/15/2024 12:33 PM FOUNTAIN MANAGER 04/15/2024 1:10 PM FOUNTAIN MANAGER John Fong MD LAB CYTOLOGY ORDERABLES Final Result Performing Organization Address City/[facility]/ZIP Co de Phone Number [address] [address], [place] * Pathology Surgical Interpretation (04/15/2024 12:13 PM FOUNTAIN MANAGER) Only the most recent of2 resultswithin the time period is included. Submitted Clinical History Adenocarcinoma of stomach [C16.9] 04/20/2024 8:13 PM FOUNTAIN MANAGER [facility] LABS Diagnosis A. Falciform ligament, resection: Fibroadipose tissue, no tumor present 04/20/2024 8:13 PM FOUNTAIN MANAGER [facility] Gross Description A: Falciform ligament, falciorm ligament biopsy....or 16: Consists of a fragment of castillo-yellow, lobulated fat (0.8 x 0.6 x 0.5 cm) entirely submitted in cassette A1. EF 04/20/2024 8:13 PM FOUNTAIN MANAGER [facility] Disclaimer "Some tests reported here may have been developed and performance characteristics determined by [facility] Medicine. These tests have not been specifically cleared or approved by the U.S. Food and Drug Administration. If applicable, controls were reviewed and showed appropriate reactivity." 04/20/2024 8:13 PM FOUNTAIN MANAGER [facility] Tissue (Falciform Ligament) 04/15/2024 12:13 PM FOUNTAIN MANAGER 04/15/2024 1:18 PM FOUNTAIN MANAGER John Fong MD LAB PATHOLOGY ORDERABLES Final Result [address] [address], [place] * [place] [facility] Exchange (04/15/2024 11:40 AM FOUNTAIN MANAGER) Narrative Systemgenerated, Documentation - 04/15/2024 11:40 AM FOUNTAIN MANAGER This procedure requires no interpretation from the radiologist. John Fong MD IMG FLUOROSCOPY ORDERABLES Fin al Result * CT Abdomen Pelvis with IV Contrast (04/12/2024 11:18 AM FOUNTAIN MANAGER) Anatomical Region Laterality Modality Abdomen, Pelvis Computed Tomogra phy 04/12/2024 11:5 2 AM FOUNTAIN MANAGER Impressions 04/12/2024 12:11 PM FOUNTAIN MANAGER Wall thickening and slight mucosal irregularity of [...] and potentially actionable. Narrative 04/12/2024 12:11 PM FOUNTAIN MANAGER FULL RESULT: Examination: CT ABDOMEN PELVIS W [...] Result * Fractionated Bilirubin (04/12/2024 9:04 AM FOUNTAIN MANAGER) Bilirubin Direct 04/12/20 9:47 AM FOUNTAIN MANAGER [facility] Comment: Direct and indirect bilirubin will not be reported when Total bilirubin result is <0.3 mg/dL Indocyanine Green (ICG) may cause falsely elevated bilirubin results. Total and direct bilirubin must not be measured from samples containing indocyanine green. Bilirubin Indirect 2023 9:47 AM [facility] Comment:Direct and indirect bilirubin will not be reported when Total bilirubin result is <0.3 mg/dL Bilirubin Total <0.3 0.0 - 1.2 mg/dL 04/12/2024 9:47 AM [facility] Comment: Direct and indirect bilirubin [...] Unknown Venipuncture / Unknown 04/12/2024 9:04 AM FOUNTAIN MANAGER 04/12/2024 9:08 AM FOUNTAIN MANAGER us Nghia Zhu MD LAB BLOOD ORDERABLES Final Resu lt [facility] Unless otherwise noted, all lab tests performed by: Division of Pathology and Laboratory Medicine [address] [place] [id number] * (ABNORMAL) Lipase (04/12/2024 9:04 AM FOUNTAIN MANAGER) Lipase Level 311(H) 13 - 60 U/L 04/12/2024 10:09 AM FOUNTAIN MANAGER [facility] Blood Peripheral blood specimen / Unknown Venipuncture / Unknown 04/12/2024 9:04 AM FOUNTAIN MANAGER 04/12/2024 9:08 AM FOUNTAIN MANAGER Narrative [facility] - 04/12/2024 10:09 AM FOUNTAIN MANAGER Reference range established based on adult population us Nghia Zhu MD LAB BLOOD ORDERABLES Final Resu lt [facility] Unless otherwise noted, all lab tests performed by: Division of Pathology and Laboratory Medicine [address] [place] [id number] * (ABNORMAL) Amylase (04/12/2024 9:04 AM FOUNTAIN MANAGER) Amylase Level 171(H) 28 - 100 U/L 04/12/2024 9:47 AM FOUNTAIN MANAGER [facility] Blood Peripheral blood specimen / Unknown Venipuncture / Unknown 04/12/2024 9:04 AM FOUNTAIN MANAGER 04/12/2024 9:08 AM FOUNTAIN MANAGER us Nghia Zhu MD LAB BLOOD ORDERABLES Final Resu lt Performing Organization Address [facility] Co de Phone Number [facility] Unless otherwise noted, all lab tests performed by: Division of Pathology and Laboratory Medicine [address] [place] [id number] * TSH (04/09/2024 11:09 AM FOUNTAIN MANAGER) Thyroid Stimulating Hormone 1.53 0.27 - 4.20 mcunit/mL 04/09/2024 12:23 PM FOUNTAIN MANAGER [facility] Blood Peripheral blood specimen / Unknown Venipuncture / Unknown 04/09/2024 11:09 AM FOUNTAIN MANAGER 04/09/2024 11:19 AM FOUNTAIN MANAGER us Ceci Nicholson MD LAB BLOOD ORDERABLES Final Resu lt [facility] Unless otherwise noted, all lab tests performed by: Division of Pathology and Laboratory Medicine [address] [place] [id number] * (ABNORMAL) Hemoglobin A1c (04/09/2024 11:09 AM FOUNTAIN MANAGER) Only the most recent of2 resultswithin the time period is included. Hemoglobin A1c 7.0(H) 4.3 - 5.6 % 04/09/2024 12:14 PM FOUNTAIN MANAGER [facility] Blood Peripheral blood specimen / Unknown Venipuncture / Unknown 04/09/2024 11:09 AM FOUNTAIN MANAGER 04/09/2024 11:19 AM FOUNTAIN MANAGER Narrative [facility] - 04/09/2024 12:14 PM FOUNTAIN MANAGER HbA1c values >=6.5% are diagnostic of diabetes mellitus. Diagnosis should be confirmed by repeat testing. Therapeutic Action suggested: >8.0% HbA1c; Goal of therapy: <7.0% HbA1c Ceci Nicholson MD LAB BLOOD ORDERABLES Final Resu lt [facility] Unless otherwise noted, all lab tests performed by: Division of Pathology and Laboratory Medicine [address] [place] [address] * Pathology Outside Interpretation (04/02/2024) Materials Received Accession#, Stained, Block, Unstained Collected Received A. [id number], 20 SS, 0 BLOCKS, 0 USS 04/02/2024 04/22/2024 04/22/2024 5:36 PM FOUNTAIN MANAGER [facility] Diagnosis Outside ([id number], 20 SS, 0 BLOCKS, 0 USS, collected [...] CELL FEATURES. See comment. /04/22/2024 5:36 PM [facility] Comment Part A. There is no evidence of malignancy on H&E and immunohistochemical stain for Cytokeratin AE1/AE3. Of note, the biopsy may not be home office representative of the entire lesion. Please correlate [...] immunohistochemistry: Negative (Score: 0) 04/22/2024 5:36 PM [facility] Biomarker Block(s) Block for biomarker testing: C1 Normal block: N/A 04/22/2024 5:36 PM [facility] Disclaimer "Some tests reported here may have been developed and performance characteristics determined by [facility] Pathology and Laboratory Medicine. These tests have not been specifically cleared or approved by the U.S. Food and Drug Administration. If applicable, controls were reviewed and showed appropriate reactivity." 04/22/2024 5:36 PM [facility] Tissue 04/02/2024 04/22/2024 6:4 0 AM FOUNTAIN MANAGER Sybil Edmonds MD LAB PATHOLOGY ORDERABLES Final R esult [facility] [address] [place] [address], [place] * OSI CT Abdomen and Pelvis (04/01/2024 8:21 AM FOUNTAIN MANAGER) Only the most recent of2 resultswithin the time period is included. Narrative Systemgenerated, Documentation - 04/27/2024 8:22 AM FOUNTAIN MANAGER Study acquired at another institution. For comparison only. No [facility] originated interpretation requested or available. [facility] Regan Zhu DO IMG OUTSIDE IMAGE ORDERAB LES Final Result * OSI CT CHEST ABDOMEN PELVIS (03/23/2024 7:37 PM FOUNTAIN MANAGER) Narrative Systemgenerated, Documentation - 04/09/2024 7:37 PM FOUNTAIN MANAGER Study acquired at another institution. For comparison only. No [facility] originated interpretation requested or available. Margoth Souza MD IMG OUTSIDE IMAGE ORDERABLES Fin al Result * OSI Chest (03/23/2024 7:37 PM FOUNTAIN MANAGER) Only the most recent of4 resultswithin the time period is included. Narrative Systemgenerated, Documentation - 04/09/2024 7:37 PM FOUNTAIN MANAGER Study acquired at another institution. For comparison only. No [facility] originated interpretation requested or available. Margoth Souza MD IMG OUTSIDE IMAGE ORDERABLES Fin al Result * OSI CT Chest (03/22/2024 8:21 AM FOUNTAIN MANAGER) Narrative Systemgenerated, Documentation - 04/27/2024 8:21 AM FOUNTAIN MANAGER Study acquired at another institution. For comparison only. No [facility] originated interpretation requested or available. [facility] Regan Zhu DO IMG OUTSIDE IMAGE ORDERAB LES Final Result * (ABNORMAL) Basic Metabolic Panel- Total Calcium (01/03/2024 2:59 PM CDT) Only the most recent of7 resultswithin the time period is included. eGFR 71 >=60 mL/min/1. 73 sq. m 01/03/2024 3:44 PM CDT [facility] Comment: The eGFRcr is calculated [...] 10.2 mg/dL 01/03/2024 3:44 PM CDT [facility] Sodium Level 139 136 - 145 mmol/L 01/03/2024 3:44 PM CDT [facility] Potassium Level 3.9 3.4 - 4.5 mmol/L 01/03/2024 3:44 PM CDT [facility] Chloride 103 98 - 107 mmol/L 01/03/2024 3:44 PM CDT [facility] CO2 28 22 - 29 mmol/L 01/03/2024 3:44 PM CDT [facility] Anion Gap 8 4 - 14 mmol/L 01/03/2024 3:44 PM CDT [facility] Creatinine 1.18(H) 0.67 - 1.17 mg/dL 01/03/2024 3:44 PM CDT [facility] BUN 15 6 - 23 mg/dL 01/03/2024 3:44 PM CDT [facility] Glucose Level 137(H) 70 - 99 mg/dL 01/03/2024 3:44 PM CDT [facility] Comment: Effective 12/14/15, the glucose reference intervals have been updated based on [place] Diabetes [employer] guidelines (Standards of Medical Care [...] BLOOD ORDERABLES Final Result Performing Organization Address [facility] de Phone Number [facility] Unless otherwise noted, all lab tests performed by: Division of Pathology and Laboratory Medicine [address] [place] [id number] * Zinc Transporter 8 Ab (01/03/2024 4:22 AM CDT) Pathologist [facility] Zinc T8 AB <15.0 <15.0 U/mL 01/15/2024 11:18 AM CDT [facility] Comment: ADDITIONAL INFORMATION This test has been modified from the stretcher leveler operator helper's instructions. Its performance characteristics were determined by [facility] in a manner consistent with CLIA requirements. This test has not been cleared or approved by the U.S. Food and Drug Administration. Test Performed by: [facility] [place] [address] Donor Center Technician: Mary Jane Topete Ph.D.; CLIA# [id number] Blood Peripheral blood specimen / Unknown Venipuncture / Unknown 01/03/2024 4:22 AM CDT 01/03/2024 4:55 AM CDT Alicia Mcmanus APRN LAB BLOOD ORDERABLES Final Result Performing Organization Address [facility] Co de Phone Number [facility] JASONANAIS * Islet Antigen 2 (IA-2) Antibody (01/03/2024 4:22 AM CDT) Pathologist [facility] IA-2 Antibody 0.00 <=0.02 nmol/L 01/07/2024 12:20 AM CDT [facility] Comment: ADDITIONAL INFORMATION This test was developed and its performance characteristics determined by [facility] in a manner consistent with CLIA requirements. This test has not been cleared or approved by the U.S. Food and Drug Administration. Test Performed by: [address] [address] Donor Center Technician: Mary Jane Topete Ph.D.; CLIA# [id number] Blood Peripheral blood specimen / Unknown Venipuncture / Unknown 01/03/2024 4:22 AM CDT 01/03/2024 4:55 AM CDT Alicia Mcmanus APRN LAB BLOOD ORDERABLES Final Result Performing Organization Address [facility] Co de Phone Number [facility] * GREG Ab Assay (01/03/2024 4:22 AM CDT) [id number] Ab-Mattoon 0.00 <=0.02 nmol/L 01/07/2024 12:01 AM CDT [facility] J[facility] Comment: ADDITIONAL INFORMATION This test was developed and its performance characteristics determined by [facility] in a manner consistent with CLIA requirements. This test has not been cleared or approved by the U.S. Food and Drug Administration. Test Performed by: [address] [address] Donor Center Technician: Mary Jane Topete Ph.D.; CLIA# [id number] Blood Peripheral blood specimen / Unknown Venipuncture / Unknown 01/03/2024 4:22 AM CDT 01/03/2024 4:55 AM CDT Alicia Mcmanus APRN LAB BLOOD ORDERABLES Final Result Performing Organization Address [facility] Co de Phone Number [facility] * Insulin Ab (01/03/2024 4:22 AM CDT) Pathologist [facility] Insulin Ab-Mattoon 0.00 0.00 - 0.02 nmol/L 01/06/2024 5:14 PM CDT [facility] Comment: ADDITIONAL INFORMATION This test was developed and its performance characteristics determined by [facility] in a manner consistent with CLIA requirements. This test has not been cleared or approved by the U.S. Food and Drug Administration. Test Performed by: [address] [address] Donor Center Technician: Mary Jane Topete Ph.D.; CLIA# [id number] Blood Peripheral blood specimen / Unknown Venipuncture / Unknown 01/03/2024 4:22 AM CDT 01/03/2024 4:55 AM CDT Alicia Mcmanus APRN LAB BLOOD ORDERABLES Final Result [facility] * C Peptide (01/03/2024 4:22 AM CDT) Pathologist [facility] C-Peptide 2.12 1.10 - 4.40 ng/mL 01/03/2024 5:48 AM CDT [facility] Blood Peripheral blood specimen / Unknown Venipuncture / Unknown 01/03/2024 4:22 AM CDT 01/03/2024 4:55 AM CDT Alicia Mcmanus APRN LAB BLOOD ORDERABLES Final Result [facility] Unless otherwise noted, all lab tests performed by: Division of Pathology and Laboratory Medicine [address] [place] [id number] * (ABNORMAL) Hemogram (01/02/2024 7:20 PM CDT) White Blood Cell 13.8(H) 4.1 - 10.5 K/uL 01/02/2024 7:33 PM CDT [facility] Red Blood Cell 4.74 4.30 - 6.04 M/uL 01/02/2024 7:33 PM CDT [facility] Hemoglobin 12.2(L) 13.3 - 17.4 g/dL 01/02/2024 7:33 PM CDT [facility] Hematocrit 38.6(L) 39.5 - 51.8 % 01/02/2024 7:33 PM CDT [facility] Mean Cell Volume 81(L) 82 - 99 fL 01/02/2024 7:33 PM CDT [facility] Mean Cell Hemoglobin 25.7(L) 26.6 - 33.2 pg 01/02/2024 7:33 PM CDT [facility] Mean Cell Hemoglobin Concentration 31.6 31.1 - 35.2 g/dL 01/02/2024 7:33 PM CDT [facility] RDW-SD 39.1 37.5 - 49.7 fL 01/02/2024 7:33 PM CDT [facility] Red Cell Diameter Width 13.1 11.6 - 15.5 % 01/02/2024 7:33 PM CDT [facility] Platelet 291 160 - 397 K/uL 01/02/2024 7:33 PM CDT [facility] Mean Platelet Volume 9.7 9.1 - 12.6 fL 01/02/2024 7:33 PM CDT [facility] INRBC 0.0 0.0 - 0.1 /100 WBC 01/02/2024 7:33 PM CDT [facility] Comment: The INRBC (instrument NRBC) [...] LAB BLOOD ORDERABLES Final R esult [facility] Unless otherwise noted, all lab tests performed by: Division of Pathology and Laboratory Medicine [address] [place] [id number] * (ABNORMAL) Beta Hydroxy Quant (01/02/2024 7:20 PM CDT) Only the most recent of2 resultswithin the time period is included. [facility] Beta-Hydroxybuty rate 0.85(H) 0.02 - 0.27 mmol/L 01/02/2024 8:01 PM CDT [facility] Is patient fasting? No 01/02/2024 8:01 PM CDT [facility] Comment:A fasting specimen i s recommended and results obtained from non-fasting specimens should be interpreted with caution using reference ranges based on fasting status and in conjunction with clinical context. Blood Peripheral blood specimen / Unknown Venipuncture / Unknown 01/02/2024 7:20 PM CDT 01/02/2024 7:24 PM CDT Narrative [facility] - 01/02/2024 8:01 PM CDT Reference range based on fasting. us Alicia Mcmanus APRN LAB BLOOD ORDERABLES Final Result [facility] Unless otherwise noted, all lab tests performed by: Division of Pathology and Laboratory Medicine [address] [place] [id number] * (ABNORMAL) ABG+ (ABG, Na, K, Cl, Glu, Hgb, Hct, Lactate, Ion Ca) (01/02/2024 10:38 AM CDT) Only the most recent of2 resultswithin the time period is included. [facility] Sodium Arterial 140 136 - 146 mmol/L 01/02/2024 10:44 AM CDT [facility] Potassium Arterial 3.7 3.4 - 4.5 mmol/L 01/02/2024 10:44 AM CDT [facility] Chloride Arterial 103 98 - 106 mmol/L 01/02/2024 10:44 AM CDT [facility] Glucose Arterial 270(H) 70 - 105 mg/dL 01/02/2024 10:44 AM CDT [facility] Hgb Art 12.9(L) 13.5 - 17.5 g/dL 01/02/2024 10:44 AM T [facility] Hematocrit Arterial 40(L) 42 - 52 % 01/02/2024 10:44 AM [facility] Lactate Arterial 1.0(H) 0.4 - 0.8 mmol/L 01/02/2024 10:44 AM T [facility] Calcium Ionized Arterial 1.14(L) 1.15 - 1.29 mmol/L 01/02/2024 10:44 AM T [facility] pH Arterial 7.35 7.35 - 7.45 01/02/2024 10:44 AM [facility] P CO2 Arterial 42.9 35.0 - 48.0 mmHg 01/02/2024 10:44 AM T [facility] P O2 Arterial 164(H) 83 - 108 mmHg 01/02/2024 10:44 AM [facility] Bicarbonate Arterial 24 21 - 28 mmol/L 01/02/2024 10:44 AM [facility] WB Anion Gap 13 7 - 16 mmol/L 01/02/2024 10:44 AM [facility] Base Excess Arterial -2 -2 - 3 mmol/L 01/02/2024 10:44 AM [facility] Oxygen Saturation Arterial 99 95 - 99 % 01/02/2024 10:44 AM [facility] Oxygen FLOW Rate/ FiO2 01/02/2024 10:44 AM [facility] O2 Therapy 01/02/2024 10:44 AM [facility] Art Kirill Test Not Applicable (Arterial Line Draw) 01/02/2024 10:44 AM [facility] Blood Arterial blood specimen / Unknown Arterial Line / Unknown 01/02/2024 10:38 AM CDT 01/02/2024 10:41 AM CDT [facility] - 01/02/2024 10:44 AM CDT [...] MD LAB BLOOD ORDERABLES Final Re sult [facility] Unless otherwise noted, all lab tests performed by: Division of Pathology and Laboratory Medicine [address] [place] [id number] * Intraoperative Ultrasound - For Image Storage [...] unexpected and potentially actionable. Margoth Souza MD IM CT ORDERABLES Final Result * BB Preop Exp Date (12/23/2023 8:51 AM CDT) PREOP EXP DATE 01/22/2024 12/23/2023 2:19 PM CDT [facility] - TRANSFUSION [facility] Blood Peripheral blood specimen / Unknown Venipuncture / Unknown 12/23/2023 8:51 AM CDT 12/23/2023 9:00 AM CDT Margoth Souza MD BLOOD BANK TEST ORDERABLES Final Result [facility] - TRANSFUSION SERVICES [facility] [address] [place] [address].[address] [place] [id number] * Preop Updated Expiration (12/23/2023 8:51 AM CDT) PREOP STATUS 01/02/2024 11:33 PM CDT [facility] - [facility]SF[facility]ION SERVICES PREOP EXP DATE 01/02/2024 01/02/2024 11:33 PM CDT [facility] Blood Peripheral blood specimen / Unknown Venipuncture / Unknown 12/23/2023 8:51 AM CDT 12/23/2023 9:00 AM CDT Margoth Souza MD BLOOD BANK TEST ORDERABLES Final Result [facility] - TRANSF[facility]ION [facility] [address] [place] [address] [id number] [place] [address] * (ABNORMAL) Urinalysis with Reflex Culture (12/23/2023 8:51 AM CDT) Urine Appearance Clear Clear 12/23/19 9:33 AM CDT [facility] Urine Color Straw Colorless, Straw, Yellow, Dark Yellow, Straw-Yellow 12/23/2023 9:33 AM CDT [facility] Urine Specific [place] 1.032 1.003 - 1.035 12/23/2023 9:33 AM CDT [facility] Urine pH 6.0 5.0 - 8.0 12/23/2023 9:33 AM CDT [facility] Urine Glucose >=1000(A) Negative mg/dL 12/23/2023 9:33 AM CDT [facility] Urine Ketones Negative Negative mg/dL 12/23/2023 9:33 AM CDT [facility] Urine Blood Negative Negative 12/23/2023 9:33 AM CDT [facility] Urine Protein 30(A) Negative mg/dL 12/23/2023 9:33 AM CDT [facility] Urine Bilirubin Negative Negative 9:33 AM CDT [facility] Urine Urobilinogen Negative Negative 12/23/2023 9:33 AM CDT [facility] Urine Nitrite Negative Negative 12/23/2023 9:33 AM CDT [facility] Urine Leukocyte Esterase Negative Negative 12/23/2023 9:33 AM CDT [facility] Urine Mucous Not Seen Not Seen, Trace /HPF 12/23/2023 9:33 AM CDT [facility] Urine Bacteria Not Seen Not Seen /HPF 12/23/2023 9:33 AM CDT [facility] Urine Squamous Epithelial Cells OCC Not Seen, OCC, Rare /HPF 12/23/2023 9:33 AM CDT [facility] Urine WBC <1 <=2 /HPF 12/23/2023 9:33 AM CDT [facility] Urine RBC 1 <=2 /HPF 12/23/2023 9:33 AM CDT [facility] Urine Voided urine specimen / Unknown Non-blood Collection / Unknown 12/23/2023 8:51 AM CDT 12/23/2023 9:10 AM CDT [facility] - 12/23/2023 9:33 AM CDT Some reporting parameters within the Urinalysis test have changed due to the implementation of new instrumentation in the Main [place], allowing greater sensitivity of measurement. Urinalysis results reported by the [facility] using existing instrumentation, as well as Urinalysis testing performed manually or by back-up methodology at the main [place], will remain relatively unchanged. New reporting parameters and units will now be reported for all campuses. us Margoth Souza MD URINE ORDERABLES Final Result [facility] Unless otherwise noted, all lab tests performed by: Division of Pathology and Laboratory Medicine [address] [place] [address] * 30-Day Pre-Op Type and Screen (12/23/2023 8:51 AM CDT) ABORh O POS 12/23/2023 8:45 AM CDT [facility] - [facility]SF[facility]ION [facility] ABSC Negative 12/23/2023 8:45 AM CDT [facility] BB Criteria Met Criteria met 12/23/2023 8:45 AM CDT [facility] Historical Record Check Complete 12/23/2023 8:45 AM CDT [facility] Blood Peripheral blood specimen / Unknown Venipuncture / Unknown 12/23/2023 8:51 AM CDT 12/23/2023 9:00 AM CDT Margoth Souza MD BLOOD BANK TEST ORDERABLES Final Result [facility] [address] [place] [address] B2.44[address] [place] [address] * TMP Interpretation Exception PreOp Expiration (12/23/2023 8:51 AM CDT) TMP Exception 12/24/2023 10:47 AM CDT [facility] TMP Signature . 12/24/2023 10:47 AM CDT [facility] Blood Peripheral blood specimen / Unknown Venipuncture / Unknown 12/23/2023 8:51 AM CDT 12/23/2023 9:00 AM CDT us Margoth Souza MD BLOOD BANK TEST ORDERABLES Final Result [facility] [address] [place] [address] * ACTH (12/09/2023 9:45 AM CDT) [facility] ACTH 22 7 - 63 pg/mL 12/09/2023 12:19 PM CDT [facility] Blood Peripheral blood specimen / Unknown Venipuncture / Unknown 12/09/2023 9:45 AM CDT 12/09/2023 9:52 AM CDT Narrative [facility] - 12/09/2023 12:19 PM CDT Reference range established based on adult population (7 - 10am draws). No established reference values for p.m. draws. Results greater than 1826 pg/mL may not be reliable due to matrix effect with extended dilution as it exceeds the stretcher leveler operator helper's recommended limit. ACTH reference intervals are established for the morning hours from 7-10 am. Due to the circadian rhythm of ACTH levels in plasma, the sample collection time must be noted. Caution should be exercised when interpreting such values and done in conjunction with clinical context. LeahTax Allisariah [email or web address] MARIE LAB BLOOD ORDERABLES Final Result [facility] Unless otherwise noted, all lab tests performed by: Division of Pathology and Laboratory Medicine [address] [place] [id number] * DHEA Sulfate (12/09/2023 9:45 AM CDT) [facility] 20 - 299 mcg/dL 12/10/2023 12:10 PM CDT [facility] Comment: Test Performed by: [facility] [place] [id number] Donor Center Technician: Mary Jane Topete Ph.D.; CLIA# [id number] Blood Peripheral blood specimen / Unknown Venipuncture / Unknown 12/09/2023 9:45 AM CDT 12/09/2023 9:56 AM CDT [facility] HYSTER DRIVER LAB BLOOD ORDERABLES Final Result [facility] * Cortisol, Total (12/09/2023 9:45 AM CDT) Only the most recent of3 resultswithin the time period is included. Cortisol 11.39 4.82 - 19.50 mcg/dL 12/09/2023 11:00 AM CDT [facility] Blood Peripheral blood specimen / Unknown Venipuncture / Unknown 12/09/2023 9:45 AM CDT 12/09/2023 9:55 AM CDT Narrative [facility] - 12/09/2023 11:00 AM CDT [...] Castillo APRN LAB BLOOD ORDERABLES Final Result [facility] Unless otherwise noted, all lab tests performed by: Division of Pathology and Laboratory Medicine [address] [place] [address] * IR CT GUIDED BIOPSY RENAL (10/03/2023 10:27 AM CDT) Anatomical Region Laterality Modality Abdomen/Pelvis, Organ (liver/spleen/kidney) Computed Tomography Narrative 10/04/2023 9:03 AM CDT Table formatting from the original result was not included. Date of Procedure: 10/03/23 Attending Physician: Kumar Comer MD Flower Stripper: None Pre Procedure Diagnosis: Renal mass Post [...] second(s) 10/03/2023 9:57 AM CDT [facility] International Normalization Ratio 0.98 0.87 - 1.12 10/03/2023 9:57 AM CDT [facility] Blood Peripheral blood specimen / Unknown Venipuncture / Unknown 10/03/2023 9:27 AM CDT 10/03/2023 9:28 AM CDT us Abilio Ng PA-C LAB BLOOD ORDERABLES Final Result [facility] [address] [facility] [place] [address] * Type and Screen (10/03/2023 9:27 AM CDT) ABORh O POS 10/03/2023 9:17 AM CDT [facility] ABSC Negative 10/03/2023 9:17 AM CDT [facility] Clot Expiration 10/06/2023 23:59 10/03/2023 9:17 AM CDT [facility] Historical Record Check Complete 10/03/2023 9:17 AM CDT [facility] Blood Peripheral blood specimen / Unknown Venipuncture / Unknown 10/03/2023 9:27 AM CDT 10/03/2023 9:52 AM CDT us Abilio Ng PA-C BLOOD BANK TEST ORDERABLES Final Result [facility] [address] [facility] [address] [place] [address] * X-ray Chest 2 Views (09/19/2023 9:24 [...] IMG DIAGNOSTIC IMAGING ORD ERABLES Final Result after 09/18/2023 Insurance MEDICARE PART A AND B MEDICARE PART A AND B Advance Directives * Full Code (Latest Code Status on File) Date Activated Date Inactivated Comments 04/12/2024 1:24 PM 04/12/2024 5:43 PM * Full Code Date Activated Date Inactivated Comments 01/02/2024 1:48 PM 01/03/2024 7:17 PM Care Teams Perinatal Tech Relationship Specialty Start Date End Date Margoth Souza MD [address] [place] [phone] [email or web address] PCP - General Urology 07/30/23 04/14/24 Eagle Zhu DO [address] [place] [phone] [email or web address] PCP - External Primary Care Provider Family Practice 04/08/24 Marianela Hutchinson MD [address] [place] [phone] [email or web address] PCP - General Gastrointestinal Medical Oncology 05/04/24 Mary Jane Cassidy MD [address] [place] [phone] [email or web address] Consulting Physician Endocrinology 12/09/23 Barry He MD [address] [place] [phone] [email or web address] Consulting Physician Internal Medicine 12/23/23 Patience Hunt MD [address] [place] [phone] [email or web address] Consulting Physician Endocrinology 12/31/23 Marianela Hutchinson MD [address] [place] [phone] [email or web address] Consulting Physician Gastrointestinal Medical Oncology 04/13/24 Margoth Souza MD [address] [place] [phone] [email or web address] Consulting Physician Urology 04/15/24 Ceci Nicholson MD [address] [place] [phone] [email or web address] Consulting Physician Internal Medicine 04/09/24 Sigifredo Davenport MD [address] [place] [phone] [email or web address] Consulting Physician Internal Medicine 06/29/24 Abilio Ng, PA-C [address] [place] [phone] Physician Flower Stripper Interventional Radiology 10/02/23
[2024-09-18] MEDS ORDERED: ONDANSETRON 4 MG/2 ML VIAL ONE (00:26)
[2024-09-18] MEDS ORDERED: NA CHLORIDE 0.9% 1,000 ML ONE (00:26)
[2024-09-18] MEDS ORDERED: PROMETHAZINE INJ 25 MG/ML AMP ONE (00:26)
[2024-09-18] MEDS ORDERED: HYDRALAZINE HCL 20 MG/ML VIAL ONE (00:26)
[2024-09-18] MEDS ORDERED: FAMOTIDINE 20 MG/2 ML VIAL IV ONE (00:26)
[2024-09-18 01:42] LABS: Absolute Basophils 0.1 K/uL (0-0.5); Absolute Lymphocytes (CBC) 0.9 K/uL (0.7-4.9); Absolute Monocytes 0.6 K/uL (0.1-1.3); Absolute Neutrophil 4.5 K/uL (1.8-8.0); Eosinophils % 0.8 % (0-4.4); Hematocrit 37.5 % (39.6-49.0); Hemoglobin 12.6 g/dL (13.6-17.9); Lymphocytes % 14.8 % (15.3-44.8); MCH 25.8 pg (27.0-35.0); MCHC 33.6 g/dL (32.0-36.0); MCV 76.8 fL (80-100); MPV 7.4 fL (7.6-11.3); Monocytes % 10.1 % (3.3-12.3); Neutrophils % 73.3 % (41.7-73.7); Nucleated Red Blood Cells % 0.1 % (0-0); Platelets 207 thou/uL (152-406); RBC Red Blood Cell Count 4.87 M/uL (4.33-5.43); Red Cell Distribution Width 15.7 % (12.1-15.2)
[2024-09-18 01:52] LABS: Albumin 3.2 g/dL (3.4-5.0); Albumin/Globulin Ratio 0.7 (1.1-1.8); Anion Gap 8.5 mEq/L (5.0-15.0); Bilirubin Total 0.3 mg/dL (0.2-1.0); Globulin 4.3 g/dL (2.3-3.5); Magnesium 1.7 mg/dL (1.6-2.4); Potassium 3.5 mEq/L (3.5-5.1); Protein, Total 7.5 g/dL (6.4-8.2)
--- NOTE | 2024-09-18 03:45 | EDPHYS ---
Physician Documentation [facility] Name: Zeke Mackay Sr Age: 59 yrs Sex: Male : 1965 Arrival Date: 09/17/2024 Time: 22:00 Bed 18 Private MD: Marko [facility] ED Physician Veena Zhu HPI: 09/17 22:55 This 59 yrs old Male presents to ER via Wheelchair with complaints of Nausea/Vomiting. cp 22:55 The patient presents to the emergency department with nausea, that is moderate, cp vomiting, 2 times today, described as bilious. Onset: The symptoms/episode began/occurred today. Possible causes: flare up of bowel problem, history of gastric cancer. Associated signs and symptoms: Pertinent negatives: abdominal pain, diarrhea, fever, GI bleeding, chest pain. Severity of symptoms: in the emergency department the symptoms are unchanged despite home interventions. 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 - Infectious Disease History:: Denies. - Social history:: Smoking status: Patient uses THC smoked earlier today. ROS: 23:00 Constitutional: Positive for poor PO intake, Negative for fever, cp 23:00 Eyes: Negative for injury, pain, redness, and discharge, cp 23:00 Cardiovascular: Negative for chest pain, palpitations, 23:00 Respiratory: Negative for cough, shortness of breath, wheezing, 23:00 Abdomen/GI: Positive for nausea and vomiting, Negative for abdominal pain, diarrhea, constipation, hematemesis, 23:00 Neuro: Negative for altered mental status, dizziness, headache, tingling, weakness, 23:00 All other systems are negative, Exam: 23:05 Constitutional: The patient appears in no acute distress, alert, awake, non-toxic, well cp developed, well nourished, uncomfortable, 23:05 Head/Face: Normocephalic, atraumatic. cp 23:05 Eyes: Periorbital structures: appear normal, Conjunctiva: normal, no exudate, no injection, Sclera: no appreciated abnormality, Lids and lashes: appear normal, 23:05 ENT: External ear(s): are unremarkable, Nose: is normal, Mouth: Lips: moist, Oral mucosa: moist, Posterior pharynx: Airway: no evidence of obstruction, patent, 23:05 Chest/axilla: Inspection: normal, 23:05 Cardiovascular: Rate: normal, 23:05 Respiratory: the patient does not display signs of respiratory distress, Respirations: normal, no use of accessory muscles, no retractions, labored breathing, is not present, Breath sounds: are clear throughout, no decreased breath sounds, no stridor, no wheezing, 23:05 Abdomen/GI: Inspection: abdomen appears normal, Palpation: soft, in all quadrants, mild abdominal tenderness, in all quadrants, 23:05 Back: pain, is absent, 23:05 Neuro: Orientation: to person, place \T\ time. Mentation: is normal, Vital Signs: 22:08 BP 215 / 103; Pulse 84; Resp 16; Temp 98.2; Pulse Ox 100% on R/A; Weight 81.19 kg (R); kl Height 6 ft. 2 in. ; Pain 0/10; 09/18 03:18 BP 152 / 75; Pulse 70; Resp 17; Pulse Ox 96% ; 05 22:08 Body Mass Index 22.98 (81.19 kg, 187.96 cm) 09/17 22:08 Pain Scale: Adult MDM: 09/17 22:16 Medical Screening Exam initiated 09/17 22:49 Order name: CBC with Diff; Complete Time: 02:08 09/18 02:08 Interpretation: Normal except: HGB 12.6; HCT 37.5; MCV 76.8; MCH 25.8; RDW 15.7; MPV cp 7.4; LYM% 14.8. 09/17 22:49 Order name: CMP; Complete Time: 02:04 09/18 02:05 Interpretation: Normal except: GLUC 172; BUN 4; ALK 126; ALB 3.2; GLOB 4.3; A/G 0.7. 09/17 22:49 Order name: Lipase; Complete Time: 02:04 cp 09/18 02:05 Interpretation: Abnormal: LIP 102. cp 09/17 22:49 Order name: Magnesium; Complete Time: 02:04 cp 09/18 02:05 Interpretation: Reviewed. cp 09/17 22:49 Order name: EKG; Complete Time: 22:50 cp 09/17 22:49 Order name: IV Saline Lock; Complete Time: 01:52 cp 09/17 22:49 Order name: Labs collected and sent; Complete Time: 01:33 cp Administered Medications: 09/18 02:19 Drug: Famotidine IVP 20 mg IVP once; dilute with 10 mL 0.9% NaCl; give over 2 minutes bm8 Route: IVP; Site: Port-a-cath; 04:04 Follow up: Response: No adverse reaction kl 02:19 Drug: Promethazine IVP 25 mg IVP once Route: IVP; Site: Port-a-cath; bm8 04:04 Follow up: Response: No adverse reaction; Nausea is decreased kl 02:19 Drug: hydrALAZINE IVP 10 mg IVP See Administration Instructions; Repeat [id number] PRN for bm8 SBP 120-140mmhg Route: IVP; Site: Port-a-cath; 04:04 Follow up: Response: No adverse reaction kl 02:20 Drug: Ondansetron IVP 4 mg IVP once; over 2 minutes Route: IVP; Site: Port-a-cath; bm8 04:05 Follow up: Response: No adverse reaction; Nausea is decreased kl 02:20 Drug: NS 0.9% IV 1000 ml IV at 1 bolus Per protocol; to be given as a bolus over 60 bm8 minutes Route: IV; Rate: 1 bolus; Site: Port-a-cath; 04:04 Follow up: Response: No adverse reaction; IV Status: Completed infusion; IV Intake: kl 1000ml Disposition: 03:44 Co-signature as Attending Physician, Veena Zhu MD I agree with the assessment and sp3 plan of care. Disposition Summary: 09/18/24 03:44 Discharge Ordered Notes: Location: Home sp3 Problem: an acute exacerbation sp3 Symptoms: have improved sp3 Condition: Stable sp3 Diagnosis - Nausea with vomiting, unspecified sp3 - gastric cancer sp3 - Essential (primary) hypertension sp3 Followup: cp - With: Private Physician - When: 1 - 2 days - Reason: Recheck today's complaints Discharge Instructions: - Discharge Summary Sheet cp - Hypertension, Adult cp - Nausea and Vomiting, Adult cp Forms: - Medication Reconciliation Form sp3 - Antibiotic Education sp3 - Prescription Opioid Use sp3 - Patient Portal Instructions sp3 - Leadership Thank You Letter sp3 Signatures: Dispatcher [employer] EDObdulia Estevez RN RN kl Rashi Miranda PA PA cp Veena Zhu MD MD sp3 Jermaine Jacques RN RN bm8 Corrections: (The following items were deleted from the chart) 02:19 05/ 22:49 EKG - Nurse/Tech ordered. cp bm8
--- NOTE | 2024-09-18 03:45 | ER ---
Nurse's Notes [facility] Name: Zeke Mackay Sr Age: 59 yrs Sex: Male : 1965 Arrival Date: 09/17/2024 Time: 22:00 Bed 18 Private MD: Eagle Zhu Diagnosis: Nausea with vomiting, unspecified;gastric cancer;Essential (primary) hypertension Presentation: 09/17 22:08 Chief complaint: Patient states: Vomiting/ Nausea reports 1 episode of emesis after kl arriving to ER took Phenergan at 2200. Coronavirus screen: Vaccine status: Patient reports being unvaccinated. Ebola Screen: Patient negative for fever greater than or equal to 101.5 degrees Fahrenheit, and additional compatible Ebola Virus Disease symptoms. Initial Sepsis Screen: Does the patient meet any 2 criteria? No. Patient's initial sepsis screen is negative. Does the patient have a suspected source of infection? No. Patient's initial sepsis screen is negative. Risk Assessment: Do you want to hurt yourself or someone else? Patient reports no desire to harm self or others. Note pt reports did not take prescribed BP meds because he forgot. Onset of symptoms was September 17, 2024. 22:08 Method Of Arrival: Wheelchair 22:08 Acuity: RICKEY 3 kl Triage Assessment: 22:13 General: Appears uncomfortable, Behavior is calm, cooperative. Pain: Denies pain. GI: kl Reports nausea, vomiting. 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 - Infectious Disease History:: Denies. - Social history:: Smoking status: Patient uses THC smoked earlier today. Screenin:40 [facility] ED Fall Risk Assessment (Adult) History of falling in the last 3 months, lg3 including since admission No falls in past 3 months (0 pts) Confusion or Disorientation No (0 pts) Intoxicated or Sedated No (0 pts) Impaired Gait No (0 pts) Mobility Assist Device Used No (0 pt) Altered Elimination No (0 pt) Score/Fall Risk Level 0 - 2 = Low Risk Oriented to surroundings, Maintained a safe environment, Educated pt \T\ family on fall prevention, incl call for assistance when getting out of bed, Assessed \T\ reinforced patient's understanding of fall precautions. Abuse screen: Denies threats or abuse. Denies injuries from another. Nutritional screening: No deficits noted. Tuberculosis screening: No symptoms or risk factors identified. Assessment: 23:40 General: PT refusing EKG at this time. provider notified. lg3 23:40 General: Appears in no apparent distress. uncomfortable, Behavior is calm, cooperative. lg3 Pain: Denies pain. Neuro: No deficits noted. Longo Agitation-Sedation Scale (RASS): 0 - Alert and Calm Level of Consciousness is awake, alert, obeys commands, Oriented to person, place, time, situation. Cardiovascular: No deficits noted. Denies chest pain, shortness of breath, Capillary refill < 3 seconds Clubbing of nail beds is absent JVD is absent Patient's skin is warm and dry. Respiratory: No deficits noted. Airway is patent Respiratory effort is even, unlabored, Respiratory pattern is regular, symmetrical. GI: Abdomen is flat, non-distended, Bowel sounds present X 4 quads. Abd is soft and non tender X 4 quads. Reports intolerance of fluids, intolerance of food, nausea, vomiting. : No signs and/or symptoms were reported regarding the genitourinary system. EENT: No deficits noted. No signs and/or symptoms were reported regarding the EENT system. Derm: No deficits noted. No signs and/or symptoms reported regarding the dermatologic system. Skin is intact, is thin, Skin is dry, Skin is normal, Skin temperature is warm. Musculoskeletal: No deficits noted. No signs and/or symptoms reported regarding the musculoskeletal system. Circulation, motion, and sensation intact. Range of motion: intact in all extremities. 09/18 03:10 General: Called to room by patient reporting that he is ready to be discharged. Pt kl refusing VS. 03:18 Reassessment: Patient appears in no apparent distress at this time. Patient is alert, kl oriented x 3, equal unlabored respirations, skin warm/dry/pink. Vital Signs: 09/17 22:08 BP 215 / 103; Pulse 84; Resp 16; Temp 98.2; Pulse Ox 100% on R/A; Weight 81.19 kg (R); kl Height 6 ft. 2 in. ; Pain 0/10; 09/18 03:18 BP 152 / 75; Pulse 70; Resp 17; Pulse Ox 96% ; kl 09/17 22:08 Body Mass Index 22.98 (81.19 kg, 187.96 cm) 09/17 22:08 Pain Scale: Adult ED Course: 09/17 22:01 Patient arrived in ED. gm2 22:01 Eagle Zhu DO is Private Physician. gm2 22:09 Rashi Miranda PA is PHCP. cp 22:09 Veena Zhu MD is Attending Physician. cp 22:11 Triage completed. kl 23:40 Patient has correct armband on for positive identification. Placed in gown. Bed in low lg3 position. Call light in reach. Side rails up X 1. Client placed on continuous cardiac and pulse oximetry monitoring. NIBP monitoring applied. net maker on. Door closed. Noise minimized. Warm blanket given. Pillow given. 09/18 00:39 Missed attempt(s): 22 gauge in right antecubital area. Bleeding controlled, band aid lg3 applied, catheter tip intact. 01:20 Missed attempt(s): 22 gauge in right upper arm. Bleeding controlled, band aid applied, lg3 catheter tip intact. 01:33 Initial lab(s) drawn, by me, sent to lab. lg3 01:33 Magnesium Sent. lg3 01:33 CBC with Diff Sent. lg3 01:33 CMP Sent. lg3 01:33 Lipase Sent. lg3 02:20 Accessed Port-a-Cath. using accessed w/ # 20 Gonzalez needle, ,sterile technique, per [address] protocol. Clean \T\ dry. Dressing intact. Good blood return. Flushes easily. 04:02 Provided Education on: Discharge education including take all medications as prescribed kl and follow up with PCP. 04:02 IV discontinued, intact, No redness/swelling at site. kl 04:02 No provider procedures requiring assistance completed. kl Administered Medications: 02:19 Drug: Famotidine IVP 20 mg IVP once; dilute with 10 mL 0.9% NaCl; give over 2 minutes bm8 Route: IVP; Site: Port-a-cath; 04:04 Follow up: Response: No adverse reaction kl 02:19 Drug: Promethazine IVP 25 mg IVP once Route: IVP; Site: Port-a-cath; bm8 04:04 Follow up: Response: No adverse reaction; Nausea is decreased kl 02:19 Drug: hydrALAZINE IVP 10 mg IVP See Administration Instructions; Repeat [id number] PRN for bm8 SBP 120-140mmhg Route: IVP; Site: Port-a-cath; 04:04 Follow up: Response: No adverse reaction kl 02:20 Drug: Ondansetron IVP 4 mg IVP once; over 2 minutes Route: IVP; Site: Port-a-cath; bm8 04:05 Follow up: Response: No adverse reaction; Nausea is decreased kl 02:20 Drug: NS 0.9% IV 1000 ml IV at 1 bolus Per protocol; to be given as a bolus over 60 bm8 minutes Route: IV; Rate: 1 bolus; Site: Port-a-cath; 04:04 Follow up: Response: No adverse reaction; IV Status: Completed infusion; IV Intake: kl 1000ml Medication: 04:03 VIS not applicable for this client. kl Intake: 04:04 IV: 1000ml; Total: 1000ml. kl Outcome: 03:44 Discharge ordered by MD. worthington 04:02 Discharged to home ambulatory, kl 04:02 Condition: stable 04:02 Discharge instructions given to patient, Instructed on discharge instructions, follow up and referral plans. medication usage, Demonstrated understanding of instructions, follow-up care, medications, 04:03 Patient left the ED. kl Signatures: Obdulia De La Paz RN RN Rashi Crenshaw PA PA cp Able, Lacie, RN RN lg3 Veena Zhu MD MD sp3 Trina Reynoso 2 Jermaine Jacques RN RN bm8
== END 2024-09-18 04:03 | disposition home or self-care (01) ==
LOC: ER 22:00
DX: R11.2 Nausea with vomiting, unspecified (principal); C16.9 Malignant neoplasm of stomach, unspecified; I10 Essential (primary) hypertension; E11.9 Type 2 diabetes mellitus without complications; Z95.1 Presence of aortocoronary bypass graft
CPT/HCPCS: 96361; 85025; 36415; 83735; 83690; 80053; 96375; 96374; 99285; J2550; J0360; J2405; J7030

== ENCOUNTER 2024-10-02 03:29 | Emergency (ER) | payer OTHER, BC ==
--- OUTSIDE RECORDS SUMMARY | 2024-10-02 03:38 | XMS REPORT | Clinical Summary ---
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 Role Phone Margoth Souza MD Primary Care Provider [phone] Mary Jane Cassidy MD Unavailable [phone] Barry He MD Unavailable Patience Hunt MD Unavailable Eagle Zhu DO Unavailable [phone] Marianela Hutchinson MD Unavailable [phone] Margoth Souza MD Unavailable Ceci Nicholson MD Unavailable [phone] Marianela Hutchinson MD Primary Care Provider [phone] Sigifredo Davenport MD Unavailable Abilio Ng-Adams Unavailable [phone] Allergies No known active allergies Medications insulin [...] metFORMIN (GLUCOPHAGE-XR) 500 mg 24 hr tablet 12/12/19 23 Active sucralfate (CARAFATE) 100 mg/mL suspension BEFORE MEALS AND AT BEDTIME 02/29/20 24 Active OLANZapine (ZyPREXA) 2.5 mg tabletIndicatio ns:Adenocarcino ma of stomach Take 1 tablet (2.5 mg) by mouth at bedtime. 30 tablet 1 07/16/19 25 Active ondansetron (Zofran) 8 mg tabletIndicatio ns:Adenocarcino ma of stomach Take 1 tablet (8 mg) by mouth every 8 (eight) hours as needed for nausea or vomiting. 30 tablet 2 09/22/19 25 Active promethazine (PHENERGAN) 25 mg tabletIndicatio ns:Adenocarcino ma of stomach Take 1 tablet (25 mg) by mouth every 6 (six) hours as needed for nausea or vomiting. 60 tablet 2 09/22/19 25 Active loperamide (Imodium A-D) 1 mg/7.5 mL solutionIndicat ions:Diarrhea Take 15 mL (2 mg) by mouth 4 (four) times a day as needed for diarrhea. 480 mL 2 09/22/19 25 Active dapagliflozin propanediol (Farxiga) 10 mg tablet Take 1 tablet (10 mg) by mouth daily. 024 Discontinued metFORMIN (GLUCOPHAGE) 500 mg tablet Take 2 tablets (1,000 mg) by mouth 2 (two) times a day with meals. 025 Discontinued tadalafil (CIALIS) 5 mg tablet Take 1 tablet (5 mg) by mouth daily. 08/14/19 24 024 Discontinued polyethylene glycol (GLYCOLAX) 17 gram/dose powderIndicatio ns:Renal [...] nausea or vomiting. 30 tablet 2 04/09/20 025 Discontinued metoclopramide (Reglan) 5 mg tabletIndicatio [...] by Tylenol). 60 mL 4 3:43 PM MILITARY SCIENCE INSTRUCTOR 04/15/20 24 025 Discontinued OLANZapine (ZyPREXA) 2.5 [...] 13 days. 75 mL 05/23/19 25 025 promethazine (PHENERGAN) 25 mg tabletIndicatio ns:Adenocarcino ma of stomach Take 1 tablet (25 mg) by mouth every 6 (six) hours as needed for nausea or vomiting. 60 tablet 2 07/16/19 25 025 Discontinued(Re order) ondansetron (Zofran) 8 mg tabletIndicatio ns:Adenocarcino ma of stomach Take 1 tablet (8 mg) by mouth every 8 (eight) hours as needed for nausea or vomiting. 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 01/02/2024 04/14/2024 Diabetic ketoacidosis 2023 Overview (01/01/2024): Hospitalized locally 12/03/2023-12/06/2023 Encounters Date Type Department Care Team Description 09/25/2024 Telephone MDA ASKMDA PHYSICIAN [address] [place] [id number] Jane Sanchez, traffic control flagger Call 09/23/2024 8:56 PM CDT - 09/23/2024 11:34 PM CDT Emergency [facility] [address] [place] [address], 1st [place] [address] Otf Glaser MD Encounter for adjustment and management of vascular access device (Primary Dx); Hypertension Discharge Disposition: Home 09/23/2024 6:50 PM CDT Infusion [facility] - [place] [address] [facility], 8th [place] [address] Marianela Hutchinson MD Rocafort, Roy G, RN Adenocarcinoma of stomach (Primary Dx) 09/21/2024 4:30 PM CDT [facility] [place] [address] [facility], 8th [place] [address] Marianela Hutchinson MD Joseph, Divya, ARTURO Adenocarcinoma of stomach (Primary Dx); Iron deficiency anemia, not otherwise specified 09/21/2024 2:20 PM CDT [facility] [address] [place] [address], 7th [place] [address] Marianela Hutchinson MD Adenocarcinoma of stomach 09/21/2024 12:48 PM CDT - 09/21/2024 11:59 PM CDT Hospital Encounter [facility] [address] [place] [address] Marianela Hutchinson MD Adenocarcinoma of stomach Discharge Disposition: Home 09/21/2024 Orders Only [facility] [address] [place] [address], [address] [place] [address] [place] [address] Marianela Hutchinson MD Adenocarcinoma of stomach (Primary Dx) 09/21/2024 Orders Only [facility] [address] [place] [address], [address] [place] [address] Radha Castellon [facility] Adenocarcinoma of stomach (Primary Dx); Diarrhea 09/21/2024 Travel 09/21/2024 Orders Only Ambulatory [facility] [place] - [address], 8th [place] [address] Marianela Hutchinson MD Adenocarcinoma of stomach (Primary Dx) 09/09/2024 6:30 PM CDT Infusion [facility] [place] - [address], 8th [facility] [place] [address] Marianela Hutchinson MD Balason, Adda Rica F, RN Adenocarcinoma of stomach (Primary Dx) 09/09/2024 Travel 09/07/2024 4:30 PM CDT Infusion [facility] [place] - [address], [address]th [facility] [place] [address] Marianela Hutchinson MD Castillo, Emmanuel, RN Adenocarcinoma of stomach (Primary Dx); Iron deficiency anemia, not otherwise specified 09/07/2024 1:00 PM CDT [facility] [address] [place] [address], [address] [place] [address] Elevator [place], [place] [id number] Marianela Hutchinson MD Adenocarcinoma of stomach (Primary Dx) 09/07/2024 10:41 AM CDT - 09/07/2024 11:59 PM CDT Hospital Encounter [facility] [address] [place] [address] Marianela Hutchinson MD Adenocarcinoma of stomach Discharge Disposition: Home 09/07/2024 Orders Only [facility] [address] [place] [address], [address] [place] [address] [place] [address] Marianela Hutchinson MD Adenocarcinoma of stomach (Primary Dx) 09/07/2024 Orders Only [facility] [address] [place] [address], 7th [place] [address] Radha Castellon, [facility] Adenocarcinoma of stomach (Primary Dx); Iron deficiency anemia, not otherwise specified 09/07/2024 Travel 08/26/2024 7:41 PM CDT - 08/26/2024 11:59 PM CDT Hospital Encounter Ambulatory Treatment Center - [address], 2nd Floor, [place] [address] Marianela Hutchinson MD Le, Lam, RN Adenocarcinoma of stomach (Primary Dx) Discharge Disposition: Home 08/24/2024 1:40 PM CDT [facility] [address] [place] [address], 7th [place] [address] Marianela Hutchinson MD Adenocarcinoma of stomach 08/24/2024 12:42 PM CDT - 08/24/2024 11:59 PM CDT Hospital Encounter Ambulatory [facility] [place] - [address], 2nd Floor, [place] [address] Gillian Gomez PA-C Harrison, Kishanda S, RN Adenocarcinoma of stomach (Primary Dx) Discharge Disposition: Home 08/24/2024 11:16 AM CDT - 08/24/2024 12:41 PM CDT Hospital Encounter [facility] [address] [place], [place] [id number] Gillian Gomez PA-C Adenocarcinoma of stomach Discharge Disposition: Home 08/24/2024 Orders Only [facility] [address] [place] [address], 7th Floor Elevator [place] [phone] Marianela Hutchinson MD Adenocarcinoma of stomach (Primary Dx) 08/24/2024 Telephone [facility] [address] [place] [address], 7th [place] [address] Mony Saavedra RN 08/24/2024 Orders Only [facility]astrointestinal Center [address] [facility] Main Bldg, 7th [place] [address] Radha Castellon, [facility] Adenocarcinoma of stomach (Primary Dx) 08/24/2024 Travel 08/24/2024 Orders Only Ambulatory Treatment Center - Main Building [address] [facility] Main Bldg, 2nd Floor, [place] [address] Marianela Hutchinson MD Adenocarcinoma of stomach (Primary Dx) 08/21/2024 Telephone [facility] [address] [facility] Main Bldg, 7th [place] [address] Milagros Rogers RN 08/17/2024 Orders Only Gastrointestinal Center [facility] Main Bldg, 7th [place] [address] Gillian Gomez PA-C Adenocarcinoma of stomach (Primary Dx) 08/06/2024 Orders Only [facility]astrointestinal Center [facility] Main dg, 7th [place] [address] Radha Castellon [facility] 07/22/2024 Orders Only [facility] [place] [address] [facility], 8th [place] [address] Marianela Hutchinson MD Adenocarcinoma of stomach (Primary Dx) 07/21/2024 Telephone [facility] [place] [address] [facility], 8th [place] [address] Rosanna Álvarez, ARTURO Chemotherapy Teaching 07/16/2024 2:40 PM MILITARY SCIENCE INSTRUCTOR Follow-Up [facility] Main dg, 7th [place] [address] Marianela Hutchinson MD Adenocarcinoma of stomach (Primary Dx) 07/16/2024 Orders Only [facility] [address] [facility] Main Bldg, 7th [place] [address] Marianela Hutchinson MD Adenocarcinoma of stomach (Primary Dx) 07/16/2024 Orders Only [facility]astro[facility] Main Bldg, 7th [place] [address] Radha Castellon, [facility] Adenocarcinoma of stomach (Primary Dx) 07/16/2024 Travel 07/15/2024 10:08 AM MILITARY SCIENCE INSTRUCTOR - 07/15/2024 11:59 PM MILITARY SCIENCE INSTRUCTOR Hospital Encounter CT Imaging and Diagnostic Imaging [address] [facility] Main dg, 3rd [place] [address] Mary Kay Santamaria APRN Adenocarcinoma of stomach Discharge Disposition: Home 07/15/2024 9:49 AM MILITARY SCIENCE INSTRUCTOR - 07/15/2024 10:07 AM MILITARY SCIENCE INSTRUCTOR Hospital Encounter [facility] [address] [place] [address] [place] [address] Mary Kay Santamaria APRN Adenocarcinoma of stomach Discharge Disposition: Home 07/07/2024 Orders Only [facility] [address] [place] [address] Main dg, 7th [place] [address] Gillian Gomez PA-C Adenocarcinoma of stomach (Primary Dx) 07/06/2024 Telephone [facility] - Surgical Oncology [address] [place] [address] Main dg, 7th [place] [address] Mary Kay Santamaria APRN 07/06/2024 Orders Only [facility] - Surgical Oncology [facility] Main dg, 7th [place] [address] Mary Kay Santamaria APRN 07/06/2024 Orders Only [facility] [address] [place] [address] Main Bldg, 7th [place] [address] Gillian Gomez PA-C Adenocarcinoma of stomach (Primary Dx) 07/06/2024 Multidisciplinary Visit [facility] [address] [place], [place] [address]vd Main Bldg, 7th [place] [address] Gillian Gomez PA-C 07/06/2024 Orders Only [facility] [address] [place], [place] [address] Main Bldg, 7th [place] [address] Donnell Van Adenocarcinoma of stomach (Primary Dx) 07/02/2024 11:00 AM MILITARY SCIENCE INSTRUCTOR Nutrition Clinical Nutrition For your Nutrition appointment location directions please call: Marianela Hutchinson MD Munder, Kathryn, RD Left without seen 07/02/2024 10:30 AM MILITARY SCIENCE INSTRUCTOR Follow[facility]Up [facility] - Surgical Oncology [address] [place] [address] Main Bldg, 7th [place] [address] John Fong MD Adenocarcinoma of stomach 07/02/2024 Documentation [facility] - Surgical Oncology [address] [place] [address] Main Bldg, 7th [place] [address] John Fong MD 06/30/2024 3:33 PM MILITARY SCIENCE INSTRUCTOR Anesthesia Event Perioperative Evaluation and Management Center [address] [place] [address] Main Bldg, 6th [place] [address] Lien Antonio RN 06/30/2024 12:25 PM MILITARY SCIENCE INSTRUCTOR Anesthesia Event Endoscopy Center [address] [place] [address] Main Bldg, 5th [place] [address] Susana Kelly MD 06/30/2024 12:00 PM MILITARY SCIENCE INSTRUCTOR - 06/30/2024 12:45 PM MILITARY SCIENCE INSTRUCTOR Surgery Endoscopy Center [address] [place] [address] Main Bldg, 5th [place] [address] Brandon Alcala MD DIAGNOSTIC UPPER GASTROINTESTINAL ENDOSCOPY 06/30/2024 10:15 AM MILITARY SCIENCE INSTRUCTOR - 06/30/2024 2:24 PM MILITARY SCIENCE INSTRUCTOR Hospital Encounter Endoscopy Center [address] [place] [address] Main Bldg, 5th [place] [address] Brandon Alcala MD Adenocarcinoma of stomach Discharge Disposition: Home 06/30/2024 Travel 06/29/2024 9:00 AM MILITARY SCIENCE INSTRUCTOR Consult Perioperative Evaluation and Management [address] [place] [address] Main Bldg, 6th [place] [address] Mary Kay Santamaria APRN Vu, Khanh D, MD Encounter for preprocedural cardiovascular examination (Primary Dx); Coronary arteriosclerosis, not otherwise specified; Cardiomyopathy, not otherwise specified; Hypertension; 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; Type 2 diabetes mellitus with hyperglycemia; Dyslipidemia; Hyponatremia; Hyperkalemia; Adenocarcinoma of stomach; Paroxysmal atrial fibrillation; Hyperlipidemia, not otherwise specified 06/29/2024 8:00 AM MILITARY SCIENCE INSTRUCTOR POEM Appointments [facility] [address] [place] [address], 6th [place] [address] Marianela Hutchinson MD 06/29/2024 7:30 AM MILITARY SCIENCE INSTRUCTOR - 06/29/2024 11:59 PM MILITARY SCIENCE INSTRUCTOR Hospital Encounter [facility] Cardiology [address] [place] [address], 2nd [place] [address] Mary Kay Santamaria APRN Adenocarcinoma of stomach Discharge Disposition: Home 06/29/2024 Travel 06/23/2024 Documentation [facility] [address] [place] [address], 7th [place] [address] Mony Saavedra RN 06/22/2024 12:20 PM MILITARY SCIENCE INSTRUCTOR Follow[facility]Up [facility] [address] [place] [address], [facility] [place] [address] Marianela Hutchinson MD Adenocarcinoma, NOS of stomach, NOS 06/22/2024 Orders Only [facility] [address] [place] [address], [facility] [place] [address] Radha Castellon RPH 06/22/2024 Travel 06/20/2024 10:45 AM MILITARY SCIENCE INSTRUCTOR - 06/20/2024 11:59 PM MILITARY SCIENCE INSTRUCTOR Hospital Encounter Diagnostic Imaging Center [address] [place] [address], 3rd [place] [address] Adenocarcinoma, NOS of stomach, NOS; Malignant neoplasm of overlapping sites of esophagus Discharge Disposition: Home 06/20/2024 10:08 AM MILITARY SCIENCE INSTRUCTOR - 06/20/2024 10:44 AM MILITARY SCIENCE INSTRUCTOR Hospital Encounter [facility] [address] [place] [address] Gillian Gomez PA-C Adenocarcinoma, NOS of stomach, NOS Discharge Disposition: Home 06/16/2024 Telephone [facility] - Surgical Oncology [facility], 7th [place] [address] Mary Kay Santamaria APRN 06/15/2024 1:30 PM MILITARY SCIENCE INSTRUCTOR Infusion [facility] [place] [address] [facility], 8th [place] [address] Marianela Hutchinson MD [facility], Jorge Tyson RN Adenocarcinoma of stomach (Primary Dx); Iron deficiency anemia, not otherwise specified 06/15/2024 12:40 PM MILITARY SCIENCE INSTRUCTOR Follow[facility]Up [facility] [address] [place] [address], 7th [place] [address] Marianela Hutchinson MD Adenocarcinoma, NOS of stomach, NOS; Malignant neoplasm of overlapping sites of esophagus 06/15/2024 10:24 AM MILITARY SCIENCE INSTRUCTOR - 06/15/2024 11:59 PM MILITARY SCIENCE INSTRUCTOR Hospital Encounter Diagnostic Laboratory Center [address] [place] [address] Marianela Hutchinson MD Adenocarcinoma of stomach; Adenocarcinoma, NOS of stomach, NOS Discharge Disposition: Home 06/15/2024 Orders Only [facility] [address] [place] [address], 7th [place] [address] Radha Castellon, [facility] Adenocarcinoma of stomach (Primary Dx) 06/15/2024 Orders Only [facility] [address] [place] [address], 7th [place] [address] Gillian Gomez PA-C 06/15/2024 Travel 06/15/2024 Telephone [facility] - Gastroenterology, Hepatology & Nutrition [address] [place] [address], 7th [place] [address] Arnaldo Araujo PA-C 06/15/2024 Multidisciplinary Visit [facility] [address] [place] [address] Main [facility], 7th [place] [address] Lakeshia Pablo PA 06/15/2024 Orders Only [facility] [address] [place] [address], 7th [place] [address] Marianela Hutchinson MD Adenocarcinoma of stomach (Primary Dx) 06/12/2024 Prep for Surgery [facility] - Gastroenterology, Hepatology & Nutrition [facility], 7th [place] [address] Arnaldo Araujo PA-C Adenocarcinoma of stomach (Primary Dx) 06/12/2024 Telephone [facility] - Surgical Oncology [address] [place] [address], 7th [place] [address] Mary Kay Santamaria APRN 06/12/2024 Orders Only [facility] - Surgical Oncology [address] [place] [address], 7th [place] [address] Mary Kay Santamaria APRN Adenocarcinoma of stomach (Primary Dx) 06/10/2024 Orders Only [facility] - Surgical Oncology [address] [place] [address], [facility] [place] [place] [address] Mary Kay Santamaria APRN Adenocarcinoma of stomach (Primary Dx) 06/05/2024 Telephone [facility] - Gastroenterology, Hepatology & Nutrition [address] [place] [address], 7th [place] [address] Arnaldo Araujo PA-C 06/03/2024 5:30 PM MILITARY SCIENCE INSTRUCTOR Infusion [facility] [place] [address] [facility], 8th [place] [address] Marianela Hutchinson MD Lewandowski, Teresa M, RN Adenocarcinoma of stomach (Primary Dx) 06/03/2024 Travel 06/02/2024 Telephone Gastrointestinal [address], 7th [place] [address] Mony Saavedra, RN 06/01/2024 1:00 PM MILITARY SCIENCE INSTRUCTOR Infusion [facility] - [facility] [address] [facility], Floor 6 [place] [address] Marianela Hutchinson MD Shaik, Anna Marie B RN Adenocarcinoma of stomach (Primary Dx); Iron deficiency anemia, not otherwise specified 06/01/2024 10:53 AM MILITARY SCIENCE INSTRUCTOR - 06/01/2024 11:59 PM MILITARY SCIENCE INSTRUCTOR Hospital Encounter Diagnostic [facility] Center [address] [place] [address] Marianela Hutchinson MD Adenocarcinoma of stomach; Iron deficiency anemia, not otherwise specified Discharge Disposition: Home 06/01/2024 Orders Only [facility] [address] [place] [address], 7th [place] [address] Marianela Hutchinson MD 06/01/2024 Orders Only [facility] [address] [place] [address], [facility] [place] [place] [address] Radha Castellon [facility] Adenocarcinoma of stomach (Primary Dx); Iron deficiency anemia, not otherwise specified 06/01/2024 Travel 06/01/2024 Orders Only [facility] - Ambulatory Treatment Center [address] [facility], Floor 6 [place] [address] Marianela Hutchinson MD Adenocarcinoma of stomach (Primary Dx) 05/26/2024 Telephone [facility] - Gastroenterology, Hepatology & Nutrition [address] [place] [address], 7th [place] [address] Arnaldo Araujo PA-C 05/22/2024 Telephone [facility] - Gastroenterology, Hepatology & Nutrition [address] [place] [address], [facility] [place] [address] Arnaldo Araujo PA-C 05/22/2024 Orders Only [facility] - Gastroenterology, Hepatology & Nutrition [address] [place] [address], [facility] [place] [place] [address] Arnaldo Araujo PA-C Candidal esophagitis (Primary Dx) 05/20/2024 4:30 PM MILITARY SCIENCE INSTRUCTOR - 05/20/2024 11:59 PM MILITARY SCIENCE INSTRUCTOR Hospital Encounter Ambulatory Treatment Center - [address], 2nd Floor, Elevator B Elevator C [place] [phone] Marianela Hutchinson MD Lewandowski, Teresa M, RN Adenocarcinoma of stomach Discharge Disposition: Home 05/19/2024 12:44 PM MILITARY SCIENCE INSTRUCTOR Anesthesia Event Endoscopy Center [address] [place] [address], 5th [place] [address] Maurice Ferrera MD Thomas, Ashly, CRNA 05/19/2024 12:00 PM MILITARY SCIENCE INSTRUCTOR - 05/19/2024 1:10 PM MILITARY SCIENCE INSTRUCTOR Surgery Endoscopy Center [address] [place] [address], 5th [place] [address] Brandon Alcala MD UPPER GASTROINTESTINAL ENDOSCOPY OF ESOPHAGUS, STOMACH, OR DUODENUM ANDJ ADJACENT STRUCTURES, WITH ENDOSCOPIC ULTRASOUND EXAMINATION 05/19/2024 11:17 AM MILITARY SCIENCE INSTRUCTOR - 05/19/2024 2:49 PM MILITARY SCIENCE INSTRUCTOR Hospital Encounter Endoscopy Center [address] [place] [address], 5th [place] [address] Brandon Alcala MD Adenocarcinoma of stomach Discharge Disposition: Home 05/19/2024 Travel 05/18/2024 1:00 PM MILITARY SCIENCE INSTRUCTOR Infusion [facility] - Ambulatory Treatment Center [address] [facility], Floor 6 [place] [phone] Marianela Hutchinson MD Rupp, Alexa B, RN Adenocarcinoma of stomach (Primary Dx) 05/18/2024 12:20 PM MILITARY SCIENCE INSTRUCTOR Follow-Up [facility] [address] [place] [address], 7th [place] [address] Marianela Hutchinson MD Adenocarcinoma, NOS of stomach, NOS 05/18/2024 11:00 AM MILITARY SCIENCE INSTRUCTOR POEM Appointments Perioperative Evaluation and Management Center [address] [place] [address], 6th [place] [address] Marianela Hutchinson MD 05/18/2024 10:32 AM MILITARY SCIENCE INSTRUCTOR - 05/18/2024 11:59 PM MILITARY SCIENCE INSTRUCTOR Hospital Encounter Diagnostic [facility] Center [address] [place] [address] Gillian Gomez PA-C Adenocarcinoma, NOS of stomach, NOS Discharge Disposition: Home 05/18/2024 Orders Only [facility] [address] [place] [address], 7th [place] [address] Marianela Hutchinson MD Adenocarcinoma of stomach (Primary Dx) 05/18/2024 Orders Only [facility] [address] [place] [address], 7th [place] [address] Radha Castellon [facility] Adenocarcinoma of stomach (Primary Dx); Iron deficiency anemia, not otherwise specified 05/18/2024 Travel 05/15/2024 11:59 PM MILITARY SCIENCE INSTRUCTOR Anesthesia Event Perioperative Evaluation [facility] Management Center [address] [place] [address], 6th [place] [address] Eri Lynne, RN 05/06/2024 5:30 PM MILITARY SCIENCE INSTRUCTOR Infusion [facility] [address] [facility], 8th [place] [address] Marianela Hutchinson MD Pagara, Leni S RN Adenocarcinoma of stomach 05/04/2024 12:36 PM MILITARY SCIENCE INSTRUCTOR - 05/04/2024 11:59 PM MILITARY SCIENCE INSTRUCTOR Hospital Encounter Ambulatory Treatment [place] [facility] [address] [place] [address], 2nd Floor, [place] [address] Gillian Gomez PA-C Jo, Edifia Sungsoon, ARTURO Adenocarcinoma of stomach (Primary Dx) Discharge Disposition: Home 05/04/2024 12:20 PM MILITARY SCIENCE INSTRUCTOR [facility] [address] [place] [address], 7th [place] [address] Marianela Hutchinson MD Adenocarcinoma, NOS of stomach, NOS 05/04/2024 11:10 AM MILITARY SCIENCE INSTRUCTOR - 05/04/2024 12:35 PM MILITARY SCIENCE INSTRUCTOR Hospital Encounter [facility] [address] [place] [address] Gillian Gomez PA-C Adenocarcinoma, NOS of stomach, NOS; Adenocarcinoma of stomach Discharge Disposition: Home 05/04/2024 Orders Only [facility] [address] [place] [address], 7th [place] [address] Marianela Hutchinson MD Adenocarcinoma of stomach (Primary Dx) 05/04/2024 Orders Only [facility] [address] [place] [address], [address] [place], [place] [address] [address] Radha Castellon [facility] Adenocarcinoma of stomach (Primary Dx) 05/04/2024 Travel 04/30/2024 Orders Only [facility] - [facility] Oncology [address] [place], [place] [address] [address] Mary Kay Santamaria APRN Adenocarcinoma of stomach (Primary Dx); Paroxysmal atrial fibrillation; Hyperlipidemia, not otherwise specified; Type 2 diabetes mellitus with hyperglycemia 04/27/2024 8:05 PM MILITARY SCIENCE INSTRUCTOR Ancillary Procedure Image Library [address] [place] [address] Cancer 04/27/2024 8:00 PM MILITARY SCIENCE INSTRUCTOR Ancillary Procedure Image Library [address] [place] [address] Cancer 04/27/2024 Orders Only [facility] [address] [place] [address], [address] [place] [address] Donnell Van Adenocarcinoma of stomach (Primary Dx) 04/24/2024 Documentation [facility] [address] [facility], 8th [place] [address] Mary Kay Santamaria APRN 04/24/2024 Orders Only [facility] [address] [place] [address], [address] [place], [place] [address] [address] Mary Kay Santamaria APRN Adenocarcinoma, NOS of stomach, NOS (Primary Dx) 04/24/2024 Telephone [facility] [address] [place] [address], [address] [place], [place] [address] [address] Mary Kay Santamaria APRN 04/22/2024 Lab Requisition [facility] Sincere Moralez MD Jain, Shilpa, MD 04/21/2024 Orders Only [facility] [address] [place], [place] [address], 7th [place] [address] Gillian Gomez PA-C Adenocarcinoma, NOS of stomach, NOS (Primary Dx); Adenocarcinoma of stomach 04/16/2024 Telephone MDA ASKFLA PHYSICIAN [address] [place] [address] 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, traffic control flagger Call 04/15/2024 10:09 AM MILITARY SCIENCE INSTRUCTOR Anesthesia Event MAIN OR [address] [place] [address] eMenakshi Crowe MD Miller, Wendy, PAXTON 04/15/2024 10:05 AM MILITARY SCIENCE INSTRUCTOR - 04/15/2024 1:25 PM MILITARY SCIENCE INSTRUCTOR Surgery MAIN OR [address] [place] [address] John Fong MD ROBOTIC ASSISTED SURGICAL LAPAROSCOPY 04/15/2024 7:32 AM MILITARY SCIENCE INSTRUCTOR - 04/15/2024 11:50 PM MILITARY SCIENCE INSTRUCTOR Hospital Encounter MAIN OR [address] [place] [address] John Fong MD Adenocarcinoma of stomach (Primary Dx) Discharge Disposition: Home 04/15/2024 Travel 04/14/2024 2:30 PM MILITARY SCIENCE INSTRUCTOR Consult [facility] [address] [place] [address], 7th [place] [address] Gillian Gomez PA-C Badgwell, Brian, MD Adenocarcinoma, NOS of stomach, NOS (Primary Dx); Nausea 04/14/2024 Documentation [facility] [address] [place] [address], 7th [place] [address] John Fong MD 04/13/2024 3:00 PM MILITARY SCIENCE INSTRUCTOR Consult [facility] [address] [place] [address], [facility] Floor Elevator [place] [phone] Marianela Hutchinson MD Mass of stomach (Primary Dx) 04/13/2024 2:02 PM MILITARY SCIENCE INSTRUCTOR Anesthesia Event Peri[facility] Management [facility] [address] [place] [address], 6th [place] [address] Curtis Moctezuma PA 04/12/2024 8:22 AM MILITARY SCIENCE INSTRUCTOR - 04/12/2024 3:42 PM MILITARY SCIENCE INSTRUCTOR Hospital Encounter MAIN P06B [address] [place] [address] Nghia Zhu MD Elsayem, Ahmed, MD Nausea and vomiting (Primary Dx); Gastric cancer; Pancreatitis Discharge Disposition: Left Against Medical Advice 04/12/2024 Travel 04/09/2024 8:25 PM MILITARY SCIENCE INSTRUCTOR Ancillary Procedure Image Library [address] [place] [address] Margoth Souza MD Cancer 04/09/2024 8:20 PM MILITARY SCIENCE INSTRUCTOR Ancillary Procedure Image Library [address] [place], [place] [id number] Margoth Souza MD Cancer 04/09/2024 8:15 PM MILITARY SCIENCE INSTRUCTOR Ancillary Procedure Image Library [address] [place] [address] Margoth Souza MD Cancer 04/09/2024 8:10 PM MILITARY SCIENCE INSTRUCTOR Ancillary Procedure Image Library [address] [place] [address] Margoth Souza MD Cancer 04/09/2024 8:05 PM MILITARY SCIENCE INSTRUCTOR Ancillary Procedure Image Library [address] [place] [address] Margoth Souza MD Cancer 04/09/2024 8:00 PM MILITARY SCIENCE INSTRUCTOR Ancillary Procedure Image Library [address] [place] [address] Margoth Souza MD Cancer 04/09/2024 10:48 AM MILITARY SCIENCE INSTRUCTOR - 04/09/2024 11:59 PM MILITARY SCIENCE INSTRUCTOR Hospital Encounter [facility] [address] [place] [address] Ceci Nicholson MD Encounter for other preprocedural examination; Atherosclerosis of coronary 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, not otherwise specified; 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 Discharge Disposition: Home 04/09/2024 10:00 AM MILITARY SCIENCE INSTRUCTOR POEM Appointments [facility] Management [facility] [address] [place] [address], 6th [place] [address] Margoth Souza MD 04/09/2024 9:56 AM MILITARY SCIENCE INSTRUCTOR - 04/09/2024 10:47 AM MILITARY SCIENCE INSTRUCTOR Hospital Encounter [facility] - Cardiology [address] [facility], 2nd [place] [address] Ceci Nicholson MD Adenocarcinoma of stomach; Hyperlipidemia, not otherwise specified; Encounter for other preprocedural examination; Atherosclerosis of coronary 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, not otherwise specified Discharge Disposition: Home 04/09/2024 9:00 AM MILITARY SCIENCE INSTRUCTOR Consult Perioperative Evaluation and Management [address] [place] [address], 6th [place] [address] Mary Kay Santamaria APRN Misoi, Mercy W, MD Encounter for other preprocedural examination (Primary Dx); Adenocarcinoma of stomach; Paroxysmal atrial fibrillation; Hypertension; 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; Hyperlipidemia, not otherwise specified; Current use of 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; Atherosclerosis of coronary 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, not otherwise specified 04/09/2024 Travel 04/08/2024 Prep for Surgery [facility] [address] [place] [address], 7th [place] [address] Mary Kay Santamaria APRN Adenocarcinoma of stomach (Primary Dx); Mass of stomach 04/08/2024 Orders Only [facility] [address] [place] [address], 7th [place] [address] Mary Kay Santamaria APRN Adenocarcinoma of stomach (Primary Dx); Paroxysmal atrial fibrillation; Hypertension; 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; Hyperlipidemia, not otherwise specified; Current use of 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 04/08/2024 Orders Only [facility] [address] [place] [address], [facility] [place] [address] Gillian Gomez PA-C Adenocarcinoma, NOS of stomach, NOS (Primary Dx) 04/06/2024 Orders Only [facility] Cancer Center [address] [facility], 7th Floor Elevator [address] [place], [place] [phone] Roberto Poole PA 04/06/2024 [facility] [address] [place] [address], 7th [place] [address] Roberto Poole PA Mass of stomach (Primary Dx) 04/06/2024 [facility] [address] [place] [address], 7th [place] [address] Roberto Poole PA Mass of stomach (Primary Dx) 04/06/2024 [facility]phone [facility] [address] [place] [address], [facility] [place] [address] Anais Meng RN 02/11/2024 Travel 02/10/2024 3:30 PM CDT Telemedicine [facility] Cancer [address], [facility] [place] [address] Margoth Souza MD Renal mass (Primary Dx) 01/02/2024 7:15 AM CDT Ancillary Procedure MAIN OR [address] [place] [address] Margoth Souza MD 01/02/2024 7:00 AM CDT - 01/02/2024 11:40 AM CDT Surgery MAIN OR [address] [place] [address] Margoth Souza MD ROBOTIC ASSISTED PARTIAL NEPHRECTOMY 01/02/2024 6:58 AM CDT Anesthesia Event MAIN OR [address] [place] [address] Alonzo Liu MD Majekodumi, Jessy, CRNA 01/02/2024 5:04 AM CDT - 01/03/2024 5:05 PM CDT Hospital Encounter MAIN P09B [address] [place] [address] Margoth Souza MD Renal mass (Primary Dx) Discharge Disposition: Home 01/02/2024 Travel 12/31/2023 1:04 PM CDT - 12/31/2023 11:59 PM CDT Hospital Encounter CT Imaging and Diagnostic Imaging [facility], 3rd [place] [address] Margoth Souza MD Renal mass Discharge Disposition: Home 12/31/2023 8:00 AM CDT Consult Endocrine Center [address] [place] [address], [facility] [place] [address] Nakia Kirby APRN Khan, Sonya, MD Type 2 diabetes mellitus with hyperglycemia [E11.65] (Primary Dx); Pre-surgery evaluation 12/30/2023 9:30 AM CDT Office Visit [facility] [address] [place] [address], 7th [place] [address] Margoth Souza MD Renal mass 12/30/2023 Travel 12/30/2023 Telephone [facility] Center [address] [place] [address], [address] [place] [address] Elevator [place] [phone] Winnie Archibald, RN Appointment (Cannot get internet-phone broke) 12/30/2023 Orders Only [facility] [address] [place] [address], 7th [place] [address] Roberto Poole PA Renal mass (Primary Dx) 12/29/2023 Orders Only [facility] [address] [place] [address], [address] [place] [address] [place] [address] Veronica Del Castillo APRN 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); Endocrine/metabolic screening; Renal cell carcinoma <Left side> 12/25/2023 8:36 AM CDT Anesthesia Event [facility] [address] [place] [address], [address] [place], [place] [address] [address] Lien Antonio, RN 12/23/2023 10:30 AM CDT Consult Perioperative Evaluation and Management [address] [place] [address], [facility] [place] [place] [address] Margoth Souza MD Oh, Jeong, MD Encounter for other preprocedural examination (Primary Dx); Renal mass; Hyperlipidemia, not otherwise specified 12/23/2023 9:00 AM CDT POEM Appointments [facility] Management [facility] [address] [place] [address], 6th [place] [address] Margoth Souza MD Pre-surgery evaluation (Primary Dx) 12/23/2023 8:45 AM CDT - 12/23/2023 11:59 PM CDT Hospital Encounter [facility] [address] [place] [address] Margoth Souza MD Renal mass Discharge Disposition: Home 12/23/2023 Travel 12/09/2023 9:33 AM CDT - 12/09/2023 11:59 PM CDT Hospital Encounter [facility] [address] [place] [address] Veronica Del Castillo APRN 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; Endocrine/metabolic screening Discharge Disposition: Home 12/09/2023 8:30 AM CDT Consult Endocrine Center [address] [place] [address], [facility] [place] [place] [address] Mary Jane Cassidy MD 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); Endocrine/metabolic screening; Renal cell carcinoma <Left side> 12/09/2023 Travel 10/23/2023 Orders Only [facility] [address] [place] [address], 7th [place] [address] Roberto Poole PA Renal mass (Primary Dx); Adrenal mass 10/03/2023 9:30 AM CDT - 10/03/2023 11:59 PM CDT Hospital Encounter Interventional Radiology [address] [place] [address], 4th [place] [address] Shazia Arriaza MD McRae, Stephen, MD Renal mass Discharge Disposition: Home 10/03/2023 8:30 AM CDT - 10/03/2023 9:29 AM CDT Hospital Encounter [facility] [address] [place] [address] [place] [address] Margoth Souza MD Renal mass Discharge Disposition: Home 10/03/2023 Travel after 10/03/2023 Surgical History Surgery Date Site/Laterality Comments TOE AMPUTATION x2, 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, 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 APPENDECTOMY 05/20/1973 - 05/19/1974 Open WRIST SURGERY Left HAND SURGERY Right HIP ARTHRODESIS W/ ILIAC CRE ST BONE GRAFT Bilateral For hand surgeries CERVICAL SPINE SURGERY C3-6 fusion, x2 MA LAPAROSCOPY SURG PARTIAL NEPHRECTOMY 01/02/2024 Abdomen/Left Procedure: ROBOTIC ASSISTED PARTIAL NEPHRECTOMY; Surgeon: Margoth Souza MD; Location: MAIN OR; Service: UROLOGY MA ULTRASONIC GUIDANCE INTRAOPERATIVE 01/02/2024 Left Procedure: INTROPERATIVE ULTRASOUND - PERFORMED BY SURGEON; Surgeon: Margoth Souza MD; Location: MAIN OR; Service: UROLOGY CORONARY ARTERY BYPASS GRAFT 01/07/2024 MA LAPS ABD PRTM&OMENTUM DX W/WO SPEC BR/WA SPX 04/15/2024 Abdomen/N/A Procedure: ROBOTIC ASSISTED SURGICAL LAPAROSCOPY; Surgeon: John Fong MD; Location: MAIN OR; Service: SURG ONC - GASTRIC/HIPEC Medical devices from this surgery are in the Medical Devices section. MA FLUORO CENTRAL VENOUS ACC ESS DEV PLACEMENT 04/15/2024 Neck/N/A Procedure: FLUORO GUIDANCE FOR CENTRAL VENOUS ACCESS DEVICE PLACEMENT, REPLACEMENT, OR REMOVAL; Surgeon: John Fong MD; Location: MAIN OR; Service: SURG ONC - GASTRIC/HIPEC Medical devices from this surgery are in the Medical Devices section. MA US VASC ACCESS SITS VSL P ATENCY NDL ENTRY 04/15/2024 N/A Procedure: US GUIDANCE WITH EVAL OF POTENTIAL ACCESS SITES, REALTIME US VISUALIZATION OF VASC NEEDLE ENTRY; Surgeon: John Fong MD; Location: MAIN OR; Service: SURG ONC - GASTRIC/HIPEC Medical devices from this surgery are in the Medical Devices section. MA INSJ TUNNELED CTR VAD W/S UBQ PORT AGE 5 YR/> 04/15/2024 Neck/N/A Procedure: PORT-A-CATH PLACEMENT; Surgeon: John Fong MD; Location: MAIN OR; Service: SURG ONC - GASTRIC/HIPEC Medical devices from this surgery are in the Medical Devices section. MA ESOPHAGOGASTRODUODENOSCOP Y US SCOPE W/ADJ STRXRS 05/19/2024 Esophagus/N/A Procedure: UPPER GASTROINTESTINAL ENDOSCOPY OF ESOPHAGUS, STOMACH, OR DUODENUM ANDJ ADJACENT STRUCTURES, WITH ENDOSCOPIC ULTRASOUND EXAMINATION; Surgeon: Brandon Alcala MD; Location: MAIN ENDOSCOPY; Service: GASTROENTEROLOGY MA ESOPHAGOGASTRODUODENOSCOP Y TRANSORAL DIAGNOSTIC 06/30/2024 Esophagus/N/A Procedure: [...] locally 12/03/2023-12/06/2023 of note, pt was on [facility] Peripheral vascular disease 2023 Left LE [...] on file Legal Sex Male 11:38 AM MILITARY SCIENCE INSTRUCTOR Gender Identity Not on file Sexual Orientation Not on file Occupation Industry Job Start Date Job End Date retired from [employer] Not on file N ot on file Not on file Travel History Travel Start Travel End [place] 04/12/2024 04/12/2024 Obstetrics History Last Filed Vital Signs Vital Sign Reading Time Taken Comments Blood Pressure 176/77 09/23/2024 10:03 PM CDT Pulse 63 09/23/2024 10:03 PM CDT Temperature 37 °C (98.6 °F) 09/23/2024 10:03 PM CDT Respiratory Rate 18 09/23/2024 10:03 PM CDT Oxygen Saturation 98% 09/23/2024 10:03 PM CDT Inhaled Oxygen Concentration - - Weight 89 kg (196 lb 3.4 oz) 09/23/2024 7:03 PM CDT Height 188 cm (6' 2") 05/19/2024 11:53 AM MILITARY SCIENCE INSTRUCTOR Body Mass Index 25.19 05/19/2024 11:53 AM MILITARY SCIENCE INSTRUCTOR Plan of Treatment Upcoming Encounters Date Type Department Care Team (Late st Contact Info) Description 10/05/2024 11:45 AM CDT Appointment Diagnostic [facility] [address] [place] [address] Marianela Hutchinson MD [address] [place] [phone] [email or web address] 10/05/2024 1:45 PM CDT Infusion Ambulatory Treatment [place] [facility] [place] [address] [place] [address], 8th [place] [address] Marianela Hutchinson MD [address] [place] [phone] [email or web address] 10/07/2024 4:45 PM CDT Infusion [facility] [place] [address] [place] [address], 8th [place] [address] Marianela Hutchinson MD [address] [place] [phone] [email or web address] 10/18/2024 6:[address] Imaging and Diagnostic Imaging [address] [place] [address], 3rd [place] [address] Gillian Gomez PA-C [address] [place] [phone] [email or web address] 10/18/2024 9:15 AM CDT Appointment Diagnostic [facility] [address] [place] [address] Marianela Hutchinson MD [address] [place] [phone] [email or web address] 10/19/2024 1:00 PM CDT Follow-Up [facility] [address] [place] [address], 7th [place] [address] Marianela Hutchinson MD [address] [place] [phone] [email or web address] 10/19/2024 2:15 PM CDT Infusion [facility] [address] [facility], 8th [place] [address] Marianela Hutchinson MD [address] [place] [phone] [email or web address] 11/16/2024 9:45 AM CDT Appointment [facility] [address] [place] [address] Marianela Hutchinson MD [address] [place] [phone] [email or web address] 02/01/2025 11:30 AM CDT Appointment [facility] [address] [place] [phone] Veronica Del Castillo APRN [address] [place] [phone] [email or web address] 02/01/2025 11:[address] Imaging and Diagnostic Imaging [facility], 3rd [place] [address] Abundio LeahElaine, FRANK [address] [facility] [place] [address] [email or web address] 02/01/2025 3:00 PM CDT Follow-Up Endocrine Center [address] [place] [address], 6th [place] [address] Mary Jane Cassidy MD [address] [place] [phone] [email or web address] 02/05/2025 10:45 AM CDT Lab Genitourinary Cancer Center [address] [place] [address], 7th [place] [address] Margoth Souza MD [address] [place] [phone] [email or web address] 02/05/2025 11:15 AM CDT Ancillary Procedure X-Ray Outpatient Center [address] [place] [address], 7th [place] [address] Margoth Souza MD [address] [place] [phone] [email or web address] 02/05/2025 11:55 AM CDT Ancillary Procedure CT Imaging [address] [place] [address], 7th [place] [address] Margoth Souza MD [address] [place] [phone] [email or web address] 02/08/2025 2:30 PM CDT Telemedicine [facility] Cancer Center [address] [facility], 7th [place] [address] Margoth Souza MD [address] [place], [place] [phone] [email or web address] Health Maintenance Due Date Last Done Comments COVID-19 Vaccine (#1) 01/09/1969 Pneumococcal Vaccine: 50+ Years (1 of 2 - PCV) 983 01/09/1975 Influenza Vaccine (Season Ended) 2025 08/05/19 19 Medical Devices Implanted Type Area Tank Wagon Operator Device Identifier Shelf Expiration Date Model / Serial / Lot PwSlade marksim 6fr - [id number] Implanted:Qty: 1 on 04/15/2024 by John Fong MD at [facility] Implant Right: Neck BARD ACCESS SYSTEMS 12/17/2024 [id number] / / [id number] Procedures Procedure Name Priority Date/Time Associated Diagnosis Comments .CBC Routine 09/21/2024 12:58 PM CDT Adenocarcinoma of stomach COMPREHENSIVE METABOLIC PANEL Routine 12:58 PM CDT Adenocarcinoma of stomach COMPLETE BLOOD COUNT W/ DIFFERENTIAL Routine 09/21/2024 12:58 PM CDT Adenocarcinoma of stomach .CBC Routine 09/07/2024 10:49 AM CDT Adenocarcinoma [...] PELVIS W CONTRAST Routine 07/15/2024 4:38 PM MILITARY SCIENCE INSTRUCTOR Adenocarcinoma of stomach .CBC Routine 07/15/2024 10:01 AM MILITARY SCIENCE INSTRUCTOR Adenocarcinoma of stomach CARCINOEMBRYONIC ANTIGEN Routine 025 10:01 AM MILITARY SCIENCE INSTRUCTOR Adenocarcinoma of stomach LACTATE DEHYDROGENASE Routine 07/15/2024 10:01 AM MILITARY SCIENCE INSTRUCTOR Adenocarcinoma of stomach PHOSPHORUS LEVEL Routine 07/15/2024 10:01 AM MILITARY SCIENCE INSTRUCTOR Adenocarcinoma of stomach MAGNESIUM LEVEL Routine 07/15/2024 10:01 AM MILITARY SCIENCE INSTRUCTOR Adenocarcinoma of stomach COMPREHENSIVE METABOLIC PANEL Routine 10:01 AM MILITARY SCIENCE INSTRUCTOR Adenocarcinoma of stomach COMPLETE BLOOD COUNT W/ DIFFERENTIAL Routine 07/15/2024 10:01 AM MILITARY SCIENCE INSTRUCTOR Adenocarcinoma of stomach RESEARCH PROTOCOL [id number] Routine 07/15 10:01 AM MILITARY SCIENCE INSTRUCTOR Adenocarcinoma of stomach MDA AP IHC WORKUP Routine 07/07/2024 12:29 PM MILITARY SCIENCE INSTRUCTOR Adenocarcinoma of stomach POC GLUCOSE SCREEN Routine 06/30/2024 1:23 PM MILITARY SCIENCE INSTRUCTOR PATHOLOGY BIOPSY INTERPRETATION Routine 06/30/2024 12:51 PM MILITARY SCIENCE INSTRUCTOR Adenocarcinoma of stomach MA ESOPHAGOGASTRODUODENOSCOP Y TRANSORAL DIAGNOSTIC 06/30/2024 12:15 PM MILITARY SCIENCE INSTRUCTOR Adenocarcinoma of stomach Case Notes 06/12 per gene to schedule on 06/30, per tor to schedule 06/30 thru lunch last AM case, slot held to offer. LVM and sent mychart to schedule-DC Special Needs SUPPORT SERVICES COORDINATORARTURO PEREZ COMPLETE 06/18.SUPPORT SERVICES COORDINATORARTURO HERNANDEZ FOR DAUGHTER WITH DETAILED INSTRUCTIONS FOR PROCEDURE IN ADDITION TO HOLD ON PLAVIX FOR 5 DAYS.SUPPORT SERVICES COORDINATORARTURO HERNANDEZ 1ST CALL 06/16. POC CHEM 8 Routine 06/30/2024 11:10 AM MILITARY SCIENCE INSTRUCTOR POC GLUCOSE SCREEN Routine 06/30/2024 10:52 AM MILITARY SCIENCE INSTRUCTOR POC CHEM 8 Routine 06/29/2024 9:54 AM MILITARY SCIENCE INSTRUCTOR EKG, 12-LEAD (SCHEDULED) Routine 06/29/2024 Adenocarcinoma of stomach PETCT F18 FDG (FLUORODEOXYGLUCOSE) WITH CONTRAST Routine 06/20/2024 12:42 PM MILITARY SCIENCE INSTRUCTOR Adenocarcinoma, NOS of stomach, NOS Malignant neoplasm of overlapping sites of esophagus POC GLUCOSE SCREEN Routine 06/20/2024 11:06 AM MILITARY SCIENCE INSTRUCTOR .CBC Routine 06/20/2024 10:35 AM MILITARY SCIENCE INSTRUCTOR Adenocarcinoma, NOS of stomach, NOS CARCINOEMBRYONIC ANTIGEN Routine 025 10:35 AM MILITARY SCIENCE INSTRUCTOR Adenocarcinoma, NOS of stomach, NOS LACTATE DEHYDROGENASE Routine 06/20/2024 10:35 AM MILITARY SCIENCE INSTRUCTOR Adenocarcinoma, NOS of stomach, NOS PHOSPHORUS LEVEL Routine 06/20/2024 10:35 AM MILITARY SCIENCE INSTRUCTOR Adenocarcinoma, NOS of stomach, NOS MAGNESIUM LEVEL Routine 06/20/2024 10:35 AM MILITARY SCIENCE INSTRUCTOR Adenocarcinoma, NOS of stomach, NOS COMPREHENSIVE METABOLIC PANEL Routine 10:35 AM MILITARY SCIENCE INSTRUCTOR Adenocarcinoma, NOS of stomach, NOS COMPLETE BLOOD COUNT W/ DIFFERENTIAL Routine 06/20/2024 10:35 AM MILITARY SCIENCE INSTRUCTOR Adenocarcinoma, NOS of stomach, NOS .CBC Routine 06/15/2024 10:39 AM MILITARY SCIENCE INSTRUCTOR Adenocarcinoma of stomach CARCINOEMBRYONIC ANTIGEN Routine 025 10:39 AM MILITARY SCIENCE INSTRUCTOR Adenocarcinoma, NOS of stomach, NOS LACTATE DEHYDROGENASE Routine 06/15/2024 10:39 AM MILITARY SCIENCE INSTRUCTOR Adenocarcinoma, NOS of stomach, NOS PHOSPHORUS LEVEL Routine 06/15/2024 10:39 AM MILITARY SCIENCE INSTRUCTOR Adenocarcinoma, NOS of stomach, NOS MAGNESIUM LEVEL Routine 06/15/2024 10:39 AM MILITARY SCIENCE INSTRUCTOR Adenocarcinoma, NOS of stomach, NOS COMPREHENSIVE METABOLIC PANEL Routine 10:39 AM MILITARY SCIENCE INSTRUCTOR Adenocarcinoma of stomach COMPLETE BLOOD COUNT W/ DIFFERENTIAL Routine 06/15/2024 10:39 AM MILITARY SCIENCE INSTRUCTOR Adenocarcinoma of stomach .CBC Routine 06/01/2024 11:10 AM MILITARY SCIENCE INSTRUCTOR Adenocarcinoma of stomach TRANSFERRIN Routine 06/01/2024 11:10 AM MILITARY SCIENCE INSTRUCTOR Iron deficiency anemia, not otherwise specified Adenocarcinoma of stomach FERRITIN Routine 06/01/2024 11:10 AM MILITARY SCIENCE INSTRUCTOR Iron deficiency anemia, not otherwise specified Adenocarcinoma of stomach IRON LEVEL Routine 06/01/2024 11:10 AM MILITARY SCIENCE INSTRUCTOR Iron deficiency anemia, not otherwise specified Adenocarcinoma of stomach COMPREHENSIVE METABOLIC PANEL Routine 11:10 AM MILITARY SCIENCE INSTRUCTOR Adenocarcinoma of stomach COMPLETE BLOOD COUNT W/ DIFFERENTIAL Routine 06/01/2024 11:10 AM MILITARY SCIENCE INSTRUCTOR Adenocarcinoma of stomach POC GLUCOSE SCREEN Routine 05/19/2024 1:52 PM MILITARY SCIENCE INSTRUCTOR PATHOLOGY BIOPSY INTERPRETATION Routine 05/19/2024 1:10 PM MILITARY SCIENCE INSTRUCTOR Adenocarcinoma of stomach MA ESOPHAGOGASTRODUODENOSCOP Y US SCOPE W/ADJ STRXRS 05/19/2024 12:34 PM MILITARY SCIENCE INSTRUCTOR Adenocarcinoma of stomach Case Notes 04/24- WAITING FOR TRIAGE TO IN FOR 05/01- Special Needs SUPPORT SERVICES COORDINATOR [place] Call Completed 04/30/24ad laproscopy on 04/15/24 POC GLUCOSE SCREEN Routine 05/19/2024 12:21 PM MILITARY SCIENCE INSTRUCTOR .CBC Routine 05/18/2024 10:55 AM MILITARY SCIENCE INSTRUCTOR Adenocarcinoma, NOS of stomach, NOS CARCINOEMBRYONIC ANTIGEN Routine 024 10:55 AM MILITARY SCIENCE INSTRUCTOR Adenocarcinoma, NOS of stomach, NOS LACTATE DEHYDROGENASE Routine 05/18/2024 10:55 AM MILITARY SCIENCE INSTRUCTOR Adenocarcinoma, NOS of stomach, NOS PHOSPHORUS LEVEL Routine 05/18/2024 10:55 AM MILITARY SCIENCE INSTRUCTOR Adenocarcinoma, NOS of stomach, NOS MAGNESIUM LEVEL Routine 05/18/2024 10:55 AM MILITARY SCIENCE INSTRUCTOR Adenocarcinoma, NOS of stomach, NOS COMPREHENSIVE METABOLIC PANEL Routine 10:55 AM MILITARY SCIENCE INSTRUCTOR Adenocarcinoma, NOS of stomach, NOS COMPLETE BLOOD COUNT W/ DIFFERENTIAL Routine 05/18/2024 10:55 AM MILITARY SCIENCE INSTRUCTOR Adenocarcinoma, NOS of stomach, NOS .CBC Routine 05/04/2024 11:34 AM MILITARY SCIENCE INSTRUCTOR Adenocarcinoma, NOS of stomach, NOS RESEARCH PROTOCOL [id number] Routine 05/04 11:34 AM MILITARY SCIENCE INSTRUCTOR Adenocarcinoma of stomach CARCINOEMBRYONIC ANTIGEN Routine 024 11:34 AM MILITARY SCIENCE INSTRUCTOR Adenocarcinoma, NOS of stomach, NOS LACTATE DEHYDROGENASE Routine 05/04/2024 11:34 AM MILITARY SCIENCE INSTRUCTOR Adenocarcinoma, NOS of stomach, NOS PHOSPHORUS LEVEL Routine 05/04/2024 11:34 AM MILITARY SCIENCE INSTRUCTOR Adenocarcinoma, NOS of stomach, NOS MAGNESIUM LEVEL Routine 05/04/2024 11:34 AM MILITARY SCIENCE INSTRUCTOR Adenocarcinoma, NOS of stomach, NOS COMPREHENSIVE METABOLIC PANEL Routine 11:34 AM MILITARY SCIENCE INSTRUCTOR Adenocarcinoma, NOS of stomach, NOS COMPLETE BLOOD COUNT W/ DIFFERENTIAL Routine 05/04/2024 11:34 AM MILITARY SCIENCE INSTRUCTOR Adenocarcinoma, NOS of stomach, NOS VERIFY CATHETER TIP PLACEMENT Routine 3:50 PM MILITARY SCIENCE INSTRUCTOR Adenocarcinoma of stomach POC GLUCOSE SCREEN Routine 04/15/2024 3:21 PM MILITARY SCIENCE INSTRUCTOR XR CHEST 1 VW PORTABLE Routine 2:45 PM MILITARY SCIENCE INSTRUCTOR POC GLUCOSE SCREEN Routine 04/15/2024 1:05 PM MILITARY SCIENCE INSTRUCTOR POC GLUCOSE SCREEN Routine 04/15/2024 12:52 PM MILITARY SCIENCE INSTRUCTOR CYTOLOGY NON-RAIL TRACK LAYER INTERPRETATION Routine 04/15/2024 12:33 PM MILITARY SCIENCE INSTRUCTOR Adenocarcinoma of stomach PATHOLOGY SURGICAL INTERPRETATION Routine 04/15/2024 12:13 PM MILITARY SCIENCE INSTRUCTOR Adenocarcinoma of stomach FL CENTRAL VENOUS PLACE EXCHANGE Routine 04/15/2024 11:40 AM MILITARY SCIENCE INSTRUCTOR Adenocarcinoma of stomach POC GLUCOSE SCREEN Routine 04/15/2024 9:22 AM MILITARY SCIENCE INSTRUCTOR MA INSJ TUNNELED CTR VAD W/SUBQ PORT AGE 5 YR/> 04/15/2024 9:16 AM MILITARY SCIENCE INSTRUCTOR Adenocarcinoma of stomach Special Needs MTL@0800 MA US VASC ACCESS SITS VSL PATENCY NDL ENTRY 04/15/2024 9:16 AM MILITARY SCIENCE INSTRUCTOR Adenocarcinoma of stomach Special Needs MTL@0800 MA FLUORO CENTRAL VENOUS ACCESS DEV PLACEMENT 04/15/2024 9:16 AM MILITARY SCIENCE INSTRUCTOR Adenocarcinoma of stomach Special Needs MTL@0800 MA LAPS ABD PRTM&OMENTUM DX W/WO SPEC BR/WA SPX 04/15/2024 9:16 AM MILITARY SCIENCE INSTRUCTOR Adenocarcinoma of stomach Special Needs MTL@0800 CT ABDOMEN PELVIS W CONTRAST Routine 11:18 AM MILITARY SCIENCE INSTRUCTOR .CBC Routine 04/12/2024 9:04 AM MILITARY SCIENCE INSTRUCTOR LIPASE LEVEL Routine 04/12/2024 9:04 AM MILITARY SCIENCE INSTRUCTOR AMYLASE LEVEL Routine 04/12/2024 9:04 AM MILITARY SCIENCE INSTRUCTOR LACTATE DEHYDROGENASE Routine 04/12/2024 9:04 AM MILITARY SCIENCE INSTRUCTOR FRACTIONATED BILIRUBIN Routine 9:04 AM MILITARY SCIENCE INSTRUCTOR PHOSPHORUS LEVEL Routine 04/12/2024 9:04 AM MILITARY SCIENCE INSTRUCTOR MAGNESIUM LEVEL Routine 04/12/2024 9:04 AM MILITARY SCIENCE INSTRUCTOR COMPREHENSIVE METABOLIC PANEL Routine 9:04 AM MILITARY SCIENCE INSTRUCTOR COMPLETE BLOOD COUNT W/ DIFFERENTIAL Routine 04/12/2024 9:04 AM MILITARY SCIENCE INSTRUCTOR .CBC Routine 04/09/2024 11:09 AM MILITARY SCIENCE INSTRUCTOR Encounter for other preprocedural examination Atherosclerosis of coronary 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, not otherwise specified THYROID STIMULATING HORMONE Routine 03/21 11:09 AM MILITARY SCIENCE INSTRUCTOR Encounter for other preprocedural examination Atherosclerosis of coronary 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, not otherwise specified HEMOGLOBIN A1C Routine 04/09/2024 11:09 AM MILITARY SCIENCE INSTRUCTOR 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 Encounter for other preprocedural examination COMPREHENSIVE METABOLIC PANEL Routine 11:09 AM MILITARY SCIENCE INSTRUCTOR Encounter for other preprocedural examination Atherosclerosis of coronary 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, not otherwise specified COMPLETE BLOOD COUNT W/ DIFFERENTIAL Routine 04/09/2024 11:09 AM MILITARY SCIENCE INSTRUCTOR Encounter for other preprocedural examination Atherosclerosis of coronary 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, not otherwise specified EKG, 12-LEAD (SCHEDULED) Routine 04/09/2024 Adenocarcinoma of stomach Hyperlipidemia, not otherwise specified Encounter for other preprocedural examination Atherosclerosis of coronary 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, not otherwise specified PATHOLOGY OUTSIDE INTERPRETATION Routine 04/02/[address] ABDOMEN AND PELVIS Routine 2023 8:21 AM MILITARY SCIENCE INSTRUCTOR Cancer OSI CHEST Routine 03/23/2024 7:37 PM MILITARY SCIENCE INSTRUCTOR Cancer OSI CT CHEST ABDOMEN PELVIS Routine 08/2023 7:37 PM MILITARY SCIENCE INSTRUCTOR Cancer OSI CHEST Routine 03/23/2024 7:37 PM MILITARY SCIENCE INSTRUCTOR Cancer OSI CT CHEST Routine 03/22/2024 8:21 AM MILITARY SCIENCE INSTRUCTOR Cancer OSI CT ABDOMEN AND PELVIS Routine [...] INTRAOPERATIVE US STAT 01/02/2024 7:13 AM CDT MA ULTRASONIC GUIDANCE INTRAOPERATIVE 01/02/2024 6:08 AM CDT Renal mass Special Needs [id number]:Please collect and send tissue to pathology window with appropriate label. MA LAPAROSCOPY SURG PARTIAL NEPHRECTOMY 01/02/2024 6:08 AM CDT Renal mass Special Needs [email or web address] [email or web address]:Please collect and send tissue to pathology window [...] Routine 10/03/2023 9:27 AM CDT Renal mass after 10/03/2023 Results * (ABNORMAL) .CBC (09/21/2024 12:58 PM CDT) Only the most recent of13 resultswithin the time period is included. White Blood Cell 6.1 4.1 - 10.5 K/uL 09/21/2024 1:29 PM CDT [facility] Red Blood Cell 4.06(L) 4.30 - 6.04 M/uL 09/21/2024 1:29 PM CDT [facility] Hemoglobin 10.5(L) 13.3 - 17.4 g/dL 09/21/2024 1:29 PM CDT [facility] Hematocrit 33.3(L) 39.5 - 51.8 % 09/21/2024 1:29 PM CDT [facility] Mean Cell Volume 82 82 - 99 fL 09/21/2024 1:29 PM CDT [facility] Mean Cell Hemoglobin 25.9(L) 26.6 - 33.2 pg 09/21/2024 1:29 PM T [facility] Mean Cell Hemoglobin Concentration 31.5 31.1 - 35.2 g/dL 09/21/2024 1:29 PM T [facility] RDW-SD 45.9 37.5 - 49.7 fL 09/21/2024 1:29 PM CDT [facility] Red Cell Diameter Width 15.4 11.6 - 15.5 % 09/21/2024 1:29 PM CDT [facility] Platelet 152(L) 160 - 397 K/uL 09/21/2024 1:29 PM T [facility] Mean Platelet Volume 9.8 9.1 - 12.6 fL 09/21/2024 1:29 PM T [facility] INRBC 0.0 0.0 - 0.1 /100 WBC 09/21/2024 1:29 PM T [facility] Comment: The INRBC (instrument NRBC) value reflects the enumeration of nucleated red blood cells contained in a 200uL sample of whole blood analyzed by the instrument. This value may differ from the NRBC value reported in a manual differential, which is based on a 100 cell differential. Neutrophil % 65.1 43.2 - 72.7 % 09/21/2024 1:29 PM CDT [facility] Lymphocyte % 22.1 16.8 - 46.2 % 09/21/2024 1:29 PM T [facility] Monocyte % 9.7 5.1 - 12.5 % 09/21/2024 1:29 PM CDT [facility] Eosinophil % 2.1 0.4 - 6.3 % 09/21/2024 1:29 PM CDT [facility] Basophil % 0.5 0.2 - 1.4 % 09/21/2024 1:29 PM T [facility] IGRE % 0.5 0.1 - 1.5 % 09/21/2024 1:29 PM T [facility] Comment:The IGRE% includes M etamyelocytes, Myelocytes and Promyelocytes. Neutrophil Abs 3.97 1.95 - 7.25 K/uL 09/21/2024 1:29 PM CDT [facility] Lymphocyte Abs 1.35 1.01 - 3.24 K/uL 09/21/2024 1:29 PM CDT [facility] Monocyte Abs 0.59 0.24 - 0.85 K/uL 09/21/2024 1:29 PM CDT [facility] Eosinophil Abs 0.13 0.02 - 0.50 K/uL 09/21/2024 1:29 PM CDT [facility] Basophil Abs 0.03 0.02 - 0.09 K/uL 09/21/2024 1:29 PM CDT [facility] IG Abs 0.03 0.01 - 0.12 K/uL 09/21/2024 1:29 PM CDT [facility] Blood Peripheral blood specimen / Unknown Venipuncture / Unknown 09/21/2024 12:58 PM CDT 09/21/2024 1:01 PM CDT us Marianela Hutchinson MD LAB BLOOD ORDERABLES Final Re sult [facility] Unless otherwise noted, all lab tests performed by: Division of Pathology and Laboratory Medicine [address] [place] [id number] * (ABNORMAL) Comprehensive Metabolic Panel (09/21/2024 12:58 PM CDT) Only the most recent of12 resultswithin the time period is included. Bilirubin Total 0.3 0.0 - 1.2 mg/dL 09/21/2024 2:04 PM CDT [facility] Comment:Indocyanine Green (I CG) may cause falsely elevated bilirubin results. Total and direct bilirubin must not be measured from samples containing indocyanine green. False elevation of total bilirubin can be seen in patients with IgG concentrations above 28 g/L. eGFR 103 >=60 mL/min/1. 73 sq. m 09/21/2024 2:04 PM CDT [facility] [...] G2 fulfill criteria for CKD. Tot Protein 6.3(L) 6.4 - 8.3 gm/dL 09/21/2024 2:04 PM CDT [facility] Calcium Level Total 8.5 8.2 - 10.2 mg/dL 09/21/2024 2:04 PM CDT [facility] Alkaline Phosphatase 121 40 - 129 U/L 09/21/2024 2:04 PM CDT [facility] Albumin Level 3.4(L) 3.5 - 5.2 gm/dL 09/21/2024 2:04 PM CDT [facility] AST 27 <=40 U/L 09/21/2024 2:04 PM CDT [facility] ALT 12 <=41 U/L 09/21/2024 2:04 PM CDT [facility] Sodium Level 142 136 - 145 mmol/L 09/21/2024 2:04 PM CDT [facility] Potassium Level 3.7 3.4 - 4.5 mmol/L 09/21/2024 2:04 PM CDT [facility] Chloride 104 98 - 107 mmol/L 09/21/2024 2:04 PM CDT [facility] CO2 27 22 - 29 mmol/L 09/21/2024 2:04 PM CDT [facility] Anion Gap 11 4 - 14 mmol/L 09/21/2024 2:04 PM CDT [facility] Creatinine 0.75 0.67 - 1.17 mg/dL 09/21/2024 2:04 PM CDT [facility] BUN <4(L) 6 - 23 mg/dL 09/21/2024 2:04 PM CDT [facility] Glucose Level 121(H) 70 - 99 mg/dL 09/21/2024 2:04 PM CDT [facility] Comment: Effective 12/14/15, the glucose reference intervals have been updated based on [place] [employer] guidelines (Standards of Medical Care in Diabetes 2016. Diabetes Care 2016; 39: S13-S22). Fasting blood glucose: Normal: 70-99 mg/dL Impaired fasting glucose (increased risk for diabetes or pre-diabetes): 100-125 mg/dL Diabetes mellitus: >/=126 mg/dL Random blood glucose: Normal: 70-199 mg/dL Note: Random glucose >100 mg/dL is associated with increased risk for diabetes. Blood Peripheral blood specimen / Unknown Venipuncture / Unknown 09/21/2024 12:58 PM CDT 09/21/2024 1:01 PM CDT Marianela Hutchinson MD LAB BLOOD ORDERABLES Final Re sult [facility] Unless otherwise noted, all lab tests performed by: Division of Pathology and Laboratory Medicine [address] [place] [id number] * (ABNORMAL) Phosphorus Level (09/07/2024 10:49 AM CDT) Only the most recent of8 resultswithin the time period is included. Phosphorus Level 2.4(L) 2.5 - 4.5 mg/dL 09/07/2024 11:49 AM CDT [facility] Blood Peripheral blood specimen / Unknown Port / Unknown 09/07/2024 10:49 AM CDT 09/07/2024 10:50 AM CDT Gillian Gomez PA-C LAB BLOOD ORDERABLES Final Result [facility] Unless otherwise noted, all lab tests performed by: Division of Pathology and Laboratory Medicine [address] [place] [id number] * Magnesium Level (09/07/2024 10:49 AM CDT) Only the most recent of8 resultswithin the time period is included. Magnesium Level 1.8 1.6 - 2.6 mg/dL 09/07/2024 11:49 AM CDT [facility] Blood Peripheral blood specimen / Unknown Port / Unknown 09/07/2024 10:49 AM CDT 09/07/2024 10:50 AM CDT Gillian Gomez PA-C LAB BLOOD ORDERABLES Final Result Performing Organization Address [facility] de Phone Number [facility] Unless otherwise noted, all lab tests performed by: Division of Pathology and Laboratory Medicine [address] [place] [id number] * LDH (09/07/2024 10:49 AM CDT) Only the most recent of8 resultswithin the time period is included. LDH 148 135 - 225 U/L 09/07/2024 11:49 AM CDT [facility] Blood Peripheral blood specimen / Unknown Port / Unknown 09/07/2024 10:49 AM CDT 09/07/2024 10:50 AM CDT Narrative [facility] - 09/07/2024 11:49 AM CDT Results greater than 1651 U/L may not be reliable due to matrix effect with extended dilution as it exceeds the slot floorperson's recommended limit. Caution should be exercised when interpreting such values and done in conjunction with clinical context. us Gillian Gomez PA-C LAB BLOOD ORDERABLES Final Result Performing Organization Address City/[facility] Co de Phone Number [facility] Unless otherwise noted, all lab tests performed by: Division of Pathology and Laboratory Medicine [address] [place] [phone] * CEA (09/07/2024 10:49 AM CDT) Only the most recent of7 resultswithin the time period is included. Carcinoembryonic Antigen 1.9 <=3.8 ng/mL 09/07/2024 12:08 PM CDT [facility] Blood Peripheral blood specimen / Unknown Port / Unknown 09/07/2024 10:49 AM CDT 09/07/2024 10:50 AM CDT Narrative [facility] - 09/07/2024 12:08 PM CDT Reference Ranges (age 20-69 years): Non-smoker: <= 3.8 ng/mL Smoker: <= 5.5 ng/mL This test is measured by electrochemiluminescence immunoassay on Cornelius Nikki immunoassay analyzers. Results obtained in different methods are not interchangeable. Gillian Gomez PA-C LAB BLOOD ORDERABLES Final Result [facility] Unless otherwise noted, all lab tests performed by: Division of Pathology and Laboratory Medicine [address] [place] [id number] * CT Chest Abdomen Pelvis with Contrast (07/15/2024 4:38 PM MILITARY SCIENCE INSTRUCTOR) Anatomical Region Laterality Modality Abdomen, Pelvis, Chest Computed Tomography 07/15/2024 5:39 PM MILITARY SCIENCE INSTRUCTOR Impressions 07/15/2024 9:45 PM MILITARY SCIENCE INSTRUCTOR 1. Redemonstration of diffuse wall thickening of [...] and potentially actionable. Narrative 07/15/2024 9:45 PM MILITARY SCIENCE INSTRUCTOR FULL RESULT: Examination: CT CHEST ABDOMEN PELVIS [...] unexpected and potentially actionable. Mary Kay Santamaria GEOSPATIAL IMAGE ANALYST IMG CT ORDERABLES Final Result * Research Protocol [id number] (07/15/2024 10:01 AM MILITARY SCIENCE INSTRUCTOR) Only the most recent of2 resultswithin the time period is included. Research Protocol Specimen Specimen Collected, Ready for Pickup. 07/15/2024 12:00 PM MILITARY SCIENCE INSTRUCTOR [facility] Blood Venipuncture / Unknown 07/15/2024 10:01 AM MILITARY SCIENCE INSTRUCTOR 07/15/2024 10:10 AM MILITARY SCIENCE INSTRUCTOR Marianela Hutchinson MD RESEARCH LAB Z CODES Final Re sult Performing Organization Address City/[facility] Co de Phone Number [facility] Unless otherwise noted, all lab tests performed by: Division of Pathology and Laboratory Medicine [address] [place] [id number] * IHC Workup (07/07/2024 12:29 PM MILITARY SCIENCE INSTRUCTOR) Tissue 07/07/2024 12:2 9 PM MILITARY SCIENCE INSTRUCTOR 07/07/2024 12:29 PM MILITARY SCIENCE INSTRUCTOR Gillian Gomez PA-C, MDA AP BIOMARKER ORDERABLE S Final Result Performing Organization Address City/[facility] Co de Phone Number [facility] [address] [address], * (ABNORMAL) POC Glucose Screen - Fingerstick (06/30/2024 1:23 PM MILITARY SCIENCE INSTRUCTOR) Only the most recent of24 resultswithin the time period is included. Glucose Screen 168(H) 70 - 99 mg/dL 06/30/2024 1:25 PM MILITARY SCIENCE INSTRUCTOR [facility] POC Sample Type Capillary 06/30/2024 1:25 PM MILITARY SCIENCE INSTRUCTOR [facility] Blood 06/30/2024 1:23 PM MILITARY SCIENCE INSTRUCTOR 06/30/2024 1:25 PM MILITARY SCIENCE INSTRUCTOR Narrative [facility] - 06/30/2024 1:25 PM MILITARY SCIENCE INSTRUCTOR Capillary blood samples, e.g. obtained by fingerstick, [...] ORDERABLES - DE VICE Final Result [facility] Unless otherwise noted, all lab tests performed by: Division of Pathology and Laboratory Medicine [address] [place] [id number] * Pathology Biopsy Interpretation (06/30/2024 12:51 PM MILITARY SCIENCE INSTRUCTOR) Only the most recent of3 resultswithin the time period is included. Addendum 1 By immunohistochemistry, approximately 10% of the tumor cells show weakly to moderately cytoplasmic staining for claudin 18. By immunohistochemistry the combined positive score (CPS) for PD-L1 is <1. 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 07/10/2024 8:47 AM [facility] Gross Description A: Esophagus, lower esophageal ulcer at 37cm: Multiple soft light castillo tissue fragments, 0.7 x 0.6 x 0.1 cm in aggregate, entirely submitted in A1. ET 07/10/2024 8:47 AM [facility] Biomarker Block(s) Block for biomarker testing: A1 07/10/2024 8:47 AM [facility] Disclaimer "Some tests reported here may have been developed and performance characteristics determined by [facility] Pathology and Laboratory Medicine. These tests have not been specifically cleared or approved by the U.S. Food and Drug Administration. If applicable, controls were reviewed and showed appropriate reactivity." 07/10/2024 8:47 AM [facility] Tissue (Esophagus) 06/30/2024 12:51 PM MILITARY SCIENCE INSTRUCTOR 06/30/2024 2:51 PM MILITARY SCIENCE INSTRUCTOR us Brandon Galo MD LAB PATHOLOGY ORDERA ANDERSS Edited Result - Final [id number] [place] [address], [place] * (ABNORMAL) POC Chem 8 (06/30/2024 11:10 AM MILITARY SCIENCE INSTRUCTOR) Only the most recent of2 resultswithin the [...] for CKD. Blood 06/30/2024 11:1 0 AM MILITARY SCIENCE INSTRUCTOR 06/30/2024 11:13 AM MILITARY SCIENCE INSTRUCTOR Narrative [facility] - 06/30/2024 11:13 AM MILITARY SCIENCE INSTRUCTOR Method description: The i-STAT is an analyzer [...] DE VICE Final Result Performing Organization Address [facility] Co de Phone Number [facility] Unless otherwise noted, all lab tests performed by: Division of Pathology and Laboratory Medicine [address] [place] [id number] * EKG, 12-Lead (Scheduled) (06/29/2024) Only the most recent of2 resultswithin the time period is included. Mary Kay Santamaria APRN ECG ORDERABLES Final R esult Performing Organization Address [facility]/ZIP Co de Phone Number [facility] * PETCT F18 FDG (Fluorodeoxyglucose) with contrast (06/20/2024 12:42 PM MILITARY SCIENCE INSTRUCTOR) Anatomical Region Laterality Modality Whole Body Positron Emissio n Tomography (PET) 06/20/2024 3:10 PM MILITARY SCIENCE INSTRUCTOR Impressions 06/20/2024 4:38 PM MILITARY SCIENCE INSTRUCTOR Biopsy-proven malignancy in the region of the [...] and potentially actionable. Narrative 06/20/2024 4:38 PM MILITARY SCIENCE INSTRUCTOR FULL RESULT: Examination: 18F-FDG-PET/CT with contrast, 06/20/2024 [...] * Transferrin with TIBC (06/01/2024 11:10 AM MILITARY SCIENCE INSTRUCTOR) Transferrin 211 200 - 360 mg/dL 06/01/2024 12:15 PM MILITARY SCIENCE INSTRUCTOR [facility] Total Iron Binding Capacity 295 250 - 450 mcg/dL 06/01/2024 12:15 PM MILITARY SCIENCE INSTRUCTOR [facility] Blood Peripheral blood specimen / Unknown Venipuncture / Unknown 06/01/2024 11:10 AM MILITARY SCIENCE INSTRUCTOR 06/01/2024 11:23 AM MILITARY SCIENCE INSTRUCTOR Marianela Hutchinson MD LAB BLOOD ORDERABLES Final Re sult [facility] Unless otherwise noted, all lab tests performed by: Division of Pathology and Laboratory Medicine [address] [place] [id number] * (ABNORMAL) Iron Level (06/01/2024 11:10 AM MILITARY SCIENCE INSTRUCTOR) Iron Level 38(L) 59 - 158 mcg/dL 06/01/2024 12:15 PM MILITARY SCIENCE INSTRUCTOR [facility] Is patient fasting? No 06/01/2024 12:15 PM MILITARY SCIENCE INSTRUCTOR [facility] Blood Peripheral blood specimen / Unknown Venipuncture / Unknown 06/01/2024 11:10 AM MILITARY SCIENCE INSTRUCTOR 06/01/2024 11:23 AM MILITARY SCIENCE INSTRUCTOR Marianela Hutchinson MD LAB BLOOD ORDERABLES Final Re sult Performing Organization Address City/[facility]/ZIP Co de Phone Number [facility] Unless otherwise noted, all lab tests performed by: Division of Pathology and Laboratory Medicine [address] [place] [address] Unless otherwise noted, all lab tests performed by: Division of Pathology and Laboratory Medicine [address] [place] [address] * Ferritin Level (06/01/2024 11:10 AM MILITARY SCIENCE INSTRUCTOR) Ferritin Level 59 30 - 400 ng/mL 06/01/2024 12:15 PM MILITARY SCIENCE INSTRUCTOR [facility] Blood Peripheral blood specimen / Unknown Venipuncture / Unknown 06/01/2024 11:10 AM MILITARY SCIENCE INSTRUCTOR 06/01/2024 11:23 AM MILITARY SCIENCE INSTRUCTOR Narrative [facility] - 06/01/2024 12:15 PM MILITARY SCIENCE INSTRUCTOR Reference range established for age 20 - 60 years Marianela Hutchinson MD LAB BLOOD ORDERABLES Final Re sult [facility] Unless otherwise noted, all lab tests performed by: Division of Pathology and Laboratory Medicine [address] [place] [address] * Tip Verification Central Vascular Access Device (04/15/2024 3:50 PM MILITARY SCIENCE INSTRUCTOR) Narrative John Fong MD - 04/15/2024 3:50 PM MILITARY SCIENCE INSTRUCTOR John Fong MD 04/15/2024 3:50 PM Central Vascular Access Device Tip Verification Performed by: John Fong MD Authorized by: John Fong MD CVAD Properties Date device placed: 04/15/2024 Device placement location: [facility] Catheter Type: Implanted venous port Catheter lumen: Single lumen Vein location: Internal jugular vein Laterality: Right Tip in good position and cleared for infusion us John Fong MD IV THERAPY ORDERABLES Final Re sult * XR Chest 1 View Portable (04/15/2024 2:45 PM MILITARY SCIENCE INSTRUCTOR) Anatomical Region Laterality Modality Chest Digital Radiogra phy 04/15/2024 2:50 PM MILITARY SCIENCE INSTRUCTOR Impressions 04/15/2024 2:53 PM MILITARY SCIENCE INSTRUCTOR 1. Right infusion port catheter terminates over [...] and potentially actionable. Narrative 04/15/2024 2:53 PM MILITARY SCIENCE INSTRUCTOR FULL RESULT: Examination: XR CHEST 1 VW [...] IMAGING ORDERAB LES Final Result * Cytology Non-Face Hardener Interpretation (04/15/2024 12:33 PM MILITARY SCIENCE INSTRUCTOR) Gross Description 4 Pap Stain Slides 750 ml. clear yellow fluid Specimen concentrated by cytocentrifugation technique 4 4:07 PM MILITARY SCIENCE INSTRUCTOR [employer] [facility] Major Classification [facility]/benign 4 4:07 PM MILITARY SCIENCE INSTRUCTOR [facility] Diagnosis Peritoneal washing: No metastatic carcinoma identified Reactive mesothelial cells and histiocytes 4 4:07 PM MILITARY SCIENCE INSTRUCTOR [facility] Retained/Biomark er Testing SR:4S 4 4:07 PM MILITARY SCIENCE INSTRUCTOR [facility] Informational Points Some tests reported here may have been developed and performance characteristics determined by [facility] Pathology and Laboratory Medicine. These tests have not been specifically cleared or approved by the U.S. Food and Drug Administration. 4:07 PM MILITARY SCIENCE INSTRUCTOR [facility] Washing (Peritoneal Washing) 04/15/2024 12:33 PM MILITARY SCIENCE INSTRUCTOR 04/15/2024 1:10 PM MILITARY SCIENCE INSTRUCTOR John Fong MD LAB CYTOLOGY ORDERABLES Final Result Performing Organization Address City/[facility]/ZIP Co de Phone Number [address] [address], [place] * Pathology Surgical Interpretation (04/15/2024 12:13 PM MILITARY SCIENCE INSTRUCTOR) Only the most recent of2 resultswithin the time period is included. Submitted Clinical History Adenocarcinoma of stomach [C16.9] 04/20/2024 8:13 PM MILITARY SCIENCE INSTRUCTOR [facility] Diagnosis A. Falciform ligament, resection: Fibroadipose tissue, no tumor present 04/20/2024 8:13 PM MILITARY SCIENCE INSTRUCTOR [facility] Gross Description A: Falciform ligament, falciorm ligament biopsy....or 16: Consists of a fragment of castillo-yellow, lobulated fat (0.8 x 0.6 x 0.5 cm) entirely submitted in cassette A1. EF 04/20/2024 8:13 PM MILITARY SCIENCE INSTRUCTOR [facility] Disclaimer "Some tests reported here may have been developed and performance characteristics determined by [facility] Pathology and Laboratory Medicine. These tests have not been specifically cleared or approved by the U.S. Food and Drug Administration. If applicable, controls were reviewed and showed appropriate reactivity." 04/20/2024 8:13 PM MILITARY SCIENCE INSTRUCTOR [facility] Tissue (Falciform Ligament) 04/15/2024 12:13 PM MILITARY SCIENCE INSTRUCTOR 04/15/2024 1:18 PM MILITARY SCIENCE INSTRUCTOR John Fong MD LAB PATHOLOGY ORDERABLES Final Result Performing Organization Address City/[facility]/ZIP Co de Phone Number [address] [address], [place] * FL Central Venous Place Exchange (04/15/2024 11:40 AM MILITARY SCIENCE INSTRUCTOR) Narrative Systemgenerated, Documentation - 04/15/2024 11:40 AM MILITARY SCIENCE INSTRUCTOR This procedure requires no interpretation from the radiologist. us John Fong MD IMG FLUOROSCOPY ORDERABLES Fin al Result * CT Abdomen Pelvis with IV Contrast (04/12/2024 11:18 AM MILITARY SCIENCE INSTRUCTOR) Anatomical Region Laterality Modality Abdomen, Pelvis Computed Tomogra phy 04/12/2024 11:5 2 AM MILITARY SCIENCE INSTRUCTOR Impressions 04/12/2024 12:11 PM MILITARY SCIENCE INSTRUCTOR Wall thickening and slight mucosal irregularity of [...] and potentially actionable. Narrative 04/12/2024 12:11 PM MILITARY SCIENCE INSTRUCTOR FULL RESULT: Examination: CT ABDOMEN PELVIS W [...] that are unexpected and potentially actionable. Nghia Zuh MD IMG CT ORDERABLES Final Result * Fractionated Bilirubin (04/12/2024 9:04 AM [facility]) Pathologist [facility] Bilirubin Direct 04/12/20 9:[address] [facility] Comment: Direct and indirect bilirubin will not be reported when Total bilirubin result is <0.3 mg/dL Indocyanine Green (ICG) may cause falsely elevated bilirubin results. Total and direct bilirubin must not be measured from samples containing indocyanine green. Bilirubin Indirect 2023 9:[address] [facility] Comment:Direct and indirect bilirubin will not be reported when Total bilirubin result is <0.3 mg/dL Bilirubin Total <0.3 0.0 - 1.2 mg/dL 04/12/2024 9:[address] [facility] Comment: Direct and indirect bilirubin will [...] Unknown Venipuncture / Unknown 04/12/2024 9:04 AM MILITARY SCIENCE INSTRUCTOR 04/12/2024 9:08 AM [facility] Nghia Zhu MD LAB BLOOD ORDERABLES Final Resu lt [facility] Unless otherwise noted, all lab tests performed by: Division of Pathology and Laboratory Medicine [address] [place] [phone] * (ABNORMAL) Lipase (04/12/2024 9:04 AM MILITARY SCIENCE INSTRUCTOR) Lipase Level 311(H) 13 - 60 U/L 04/12/2024 10:09 AM MILITARY SCIENCE INSTRUCTOR [facility] Blood Peripheral blood specimen / Unknown Venipuncture / Unknown 04/12/2024 9:04 AM MILITARY SCIENCE INSTRUCTOR 04/12/2024 9:08 AM MILITARY SCIENCE INSTRUCTOR Narrative [facility] - 04/12/2024 10:09 AM MILITARY SCIENCE INSTRUCTOR Reference range established based on adult population us Nghia Zhu MD LAB BLOOD ORDERABLES Final Resu lt Performing Organization Address [facility] Co de Phone Number [facility] Unless otherwise noted, all lab tests performed by: Division of Pathology and Laboratory Medicine [address] [place] [phone] * (ABNORMAL) Amylase (04/12/2024 9:04 AM MILITARY SCIENCE INSTRUCTOR) Amylase Level 171(H) 28 - 100 U/L 04/12/2024 9:47 AM MILITARY SCIENCE INSTRUCTOR [facility] Blood Peripheral blood specimen / Unknown Venipuncture / Unknown 04/12/2024 9:04 AM MILITARY SCIENCE INSTRUCTOR 04/12/2024 9:08 AM MILITARY SCIENCE INSTRUCTOR us Nghia Zhu MD LAB BLOOD ORDERABLES Final Resu lt Performing Organization Address [facility]/ZIP Co de Phone Number [facility] Unless otherwise noted, all lab tests performed by: Division of Pathology and Laboratory Medicine [address] [place] [phone] * TSH (04/09/2024 11:09 AM MILITARY SCIENCE INSTRUCTOR) Thyroid Stimulating Hormone 1.53 0.27 - 4.20 mcunit/mL 04/09/2024 12:23 PM MILITARY SCIENCE INSTRUCTOR [facility] Blood Peripheral blood specimen / Unknown Venipuncture / Unknown 04/09/2024 11:09 AM MILITARY SCIENCE INSTRUCTOR 04/09/2024 11:19 AM MILITARY SCIENCE INSTRUCTOR us Ceci Nicholson MD LAB BLOOD ORDERABLES Final Resu lt Performing Organization Address [facility] Co de Phone Number [facility] Unless otherwise noted, all lab tests performed by: Division of Pathology and Laboratory Medicine [address] [place] [phone] * (ABNORMAL) Hemoglobin A1c (04/09/2024 11:09 AM MILITARY SCIENCE INSTRUCTOR) Only the most recent of2 resultswithin the time period is included. Hemoglobin A1c 7.0(H) 4.3 - 5.6 % 04/09/2024 12:14 PM MILITARY SCIENCE INSTRUCTOR [facility] Blood Peripheral blood specimen / Unknown Venipuncture / Unknown 04/09/2024 11:09 AM MILITARY SCIENCE INSTRUCTOR 04/09/2024 11:19 AM MILITARY SCIENCE INSTRUCTOR Narrative [facility] - 04/09/2024 12:14 PM MILITARY SCIENCE INSTRUCTOR HbA1c values >=6.5% are diagnostic of diabetes mellitus. Diagnosis should be confirmed by repeat testing. Therapeutic Action suggested: >8.0% HbA1c; Goal of therapy: <7.0% HbA1c us Ceci Nicholson MD LAB BLOOD ORDERABLES Final Resu lt Performing Organization Address [facility] de Phone Number [facility] Unless otherwise noted, all lab tests performed by: Division of Pathology and Laboratory Medicine [address] [place] [phone] * Pathology Outside Interpretation (04/02/2024) Materials Received Accession#, Stained, Block, Unstained Collected Received A. [id number], 20 SS, 0 BLOCKS, 0 USS 04/02/2024 04/22/2024 04/22/2024 5:36 PM MILITARY SCIENCE INSTRUCTOR [facility] Diagnosis Outside ([id number], 20 SS, 0 BLOCKS, 0 USS, collected [...] FEATURES. See comment. FY/ISAURO 04/22/2024 5:36 PM [facility] [employer] Comment Part A. There is no evidence of malignancy on H&E and immunohistochemical stain for Cytokeratin AE1/AE3. Of note, the biopsy may not be telephone service representative of the entire lesion. Please [...] instability (MSI-H) in the tumor is low. HER-2/shanno immunohistochemistry: Negative (Score: 0) 04/22/2024 5:36 PM [facility] [employer] Biomarker Block(s) Block for biomarker testing: C1 Normal block: N/A 04/22/2024 5:36 PM [facility] [employer] Disclaimer "Some tests reported here may have been developed and performance characteristics determined by [facility] Pathology and Laboratory Medicine. These tests have not been specifically cleared or approved by the U.S. Food and Drug Administration. If applicable, controls were reviewed and showed appropriate reactivity." 04/22/2024 5:36 PM [facility] [employer] Tissue 04/02/2024 04/22/2024 6:4 0 AM MILITARY SCIENCE INSTRUCTOR us Sybil Edmonds MD LAB PATHOLOGY ORDERABLES Final R esult [facility] [id number] [place] [address], [place] * OSI CT Abdomen and Pelvis (04/01/2024 8:21 AM MILITARY SCIENCE INSTRUCTOR) Only the most recent of2 resultswithin the time period is included. Narrative Systemgenerated, Documentation - 04/27/2024 8:22 AM MILITARY SCIENCE INSTRUCTOR Study acquired at another institution. For comparison only. No [facility] originated interpretation requested or available. [facility] Regan Zhu DO IMG OUTSIDE IMAGE ORDERAB LES Final Result * OSI CT CHEST ABDOMEN PELVIS (03/23/2024 7:37 PM MILITARY SCIENCE INSTRUCTOR) Narrative Systemgenerated, Documentation - 04/09/2024 7:37 PM MILITARY SCIENCE INSTRUCTOR Study acquired at another institution. For comparison only. No [facility] originated interpretation requested or available. Margoth Souza MD IMG OUTSIDE IMAGE ORDERABLES Fin al Result * OSI Chest (03/23/2024 7:37 PM MILITARY SCIENCE INSTRUCTOR) Only the most recent of4 resultswithin the time period is included. Narrative Systemgenerated, Documentation - 04/09/2024 7:37 PM MILITARY SCIENCE INSTRUCTOR Study acquired at another institution. For comparison only. No [facility] originated interpretation requested or available. Margoth Souza MD IMG OUTSIDE IMAGE ORDERABLES Fin al Result * OSI CT Chest (03/22/2024 8:21 AM MILITARY SCIENCE INSTRUCTOR) Narrative Systemgenerated, Documentation - 04/27/2024 8:21 AM MILITARY SCIENCE INSTRUCTOR Study acquired at another institution. For comparison only. No [facility] originated interpretation requested or available. us [facility] Regan Zhu DO IMG OUTSIDE IMAGE ORDERAB [...] reference intervals have been updated based on [place] [employer] guidelines (Standards of Medical Care [...] BLOOD ORDERABLES Final Result Performing Organization Address City/[facility] Co de Phone Number [facility] Unless otherwise noted, all lab tests performed by: Division of Pathology and Laboratory Medicine [address] [place] [id number] * Zinc Transporter 8 Ab (01/03/2024 4:22 AM CDT) Pathologist [facility] Zinc T8 AB <15.0 <15.0 U/mL 01/15/2024 11:18 AM CDT [facility] Comment: ADDITIONAL INFORMATION This test has been modified from the slot floorperson's instructions. Its performance characteristics were determined by [facility] in a manner consistent with CLIA requirements. This test has not been cleared or approved by the U.S. Food and Drug Administration. Test Performed by: [address] [address] [employer] Operator: Mary Jane Topete Ph.D.; CLIA# [id number] Blood Peripheral blood specimen / Unknown Venipuncture / Unknown 01/03/2024 4:22 AM CDT 01/03/2024 4:55 AM CDT Alicia Mcmanus APRN LAB BLOOD ORDERABLES Final Result Performing Organization Address City/[facility]/ZIP Co de Phone Number [facility] * Islet Antigen 2 (IA-2) Antibody (01/03/2024 4:22 AM CDT) IA-2 Antibody 0.00 <=0.02 nmol/L 01/07/2024 12:20 AM CDT [facility] Comment: ADDITIONAL INFORMATION This test was developed and its performance characteristics determined by [facility] in a manner consistent with CLIA requirements. This test has not been cleared or approved by the U.S. Food and Drug Administration. Test Performed by: [address] [address] [employer] Operator: Mary Jane Topete Ph.D.; CLIA# [id number] Blood Peripheral blood specimen / Unknown Venipuncture / Unknown 01/03/2024 4:22 AM CDT 01/03/2024 4:55 AM CDT Alicia Mcmanus APRN LAB BLOOD ORDERABLES Final Result [facility] * GREG Ab Assay (01/03/2024 4:22 AM CDT) Pathologist [id number] 0.00 <=0.02 nmol/L 01/07/2024 12:01 AM CDT [facility] Comment: ADDITIONAL INFORMATION This test was developed and its performance characteristics determined by [facility] in a manner consistent with CLIA requirements. This test has not been cleared or approved by the U.S. Food and Drug Administration. Test Performed by: [address] [address] [employer] Operator: Mary Jane Topete Ph.D.; CLIA# [id number] Blood Peripheral blood specimen / Unknown Venipuncture / Unknown 01/03/2024 4:22 AM CDT 01/03/2024 4:55 AM CDT Alicia Mcmanus APRN LAB BLOOD ORDERABLES Final Result [facility] * Insulin Ab (01/03/2024 4:22 AM CDT) [facility] Insulin Ab-[place] 0.00 0.00 - 0.02 nmol/L 01/06/2024 5:14 PM CDT [facility] Comment: ADDITIONAL INFORMATION This test was developed and its performance characteristics determined by [facility] in a manner consistent with CLIA requirements. This test has not been cleared or approved by the U.S. Food and Drug Administration. Test Performed by: [address] [address] [employer] Operator: Mary Jane Topete Ph.D.; CLIA# [id number] Blood Peripheral blood specimen / Unknown Venipuncture / Unknown 01/03/2024 4:22 AM CDT 01/03/2024 4:55 AM CDT Alicia Mcmanus APRN LAB BLOOD ORDERABLES Final Result Performing Organization Address City/[facility] Co de Phone Number [facility] * C Peptide (01/03/2024 4:22 AM CDT) [facility] C-Peptide 2.12 1.10 - 4.40 ng/mL 01/03/2024 5:48 AM CDT [facility] Blood Peripheral blood specimen / Unknown Venipuncture / Unknown 01/03/2024 4:22 AM CDT 01/03/2024 4:55 AM CDT Alicia Sohail Mcmanusemily MARIE LAB BLOOD ORDERABLES Final Result [facility] Unless otherwise noted, all lab tests performed by: Division of Pathology and Laboratory Medicine [address] [place] [phone] * (ABNORMAL) Hemogram (01/02/2024 7:20 PM CDT) Pathologist [facility] White Blood Cell 13.8(H) 4.1 - [...] LAB BLOOD ORDERABLES Final R esult [facility] Unless otherwise noted, all lab tests performed by: Division of Pathology and Laboratory Medicine [address] [place] [phone] * (ABNORMAL) Beta Hydroxy Quant (01/02/2024 7:20 PM CDT) Only the most recent of2 resultswithin the time period is included. Pathologist [facility] Beta-Hydroxybuty rate 0.85(H) 0.02 - 0.27 [...] APRN LAB BLOOD ORDERABLES Final Result [facility] Unless otherwise noted, all lab tests performed by: Division of Pathology and Laboratory Medicine [address] [place] [phone] * (ABNORMAL) ABG+ (ABG, Na, K, Cl, Glu, Hgb, Hct, Lactate, Ion Ca) (01/02/2024 10:38 AM CDT) Only the most recent of2 resultswithin the time period is included. Pathologist [facility] Sodium Arterial 140 136 - 146 mmol/L 01/02/2024 10:44 AM CDT [facility] Potassium Arterial 3.7 3.4 - 4.5 mmol/L 01/02/2024 10:44 AM [facility] Chloride Arterial 103 98 - 106 mmol/L 01/02/2024 10:44 AM [facility] Glucose Arterial 270(H) 70 - 105 mg/dL 01/02/2024 10:44 AM [facility] Hgb Art 12.9(L) 13.5 - 17.5 g/dL 01/02/2024 10:44 AM [facility] Hematocrit Arterial 40(L) 42 - 52 % 01/02/2024 10:44 AM [facility] Lactate Arterial 1.0(H) 0.4 - 0.8 mmol/L 01/02/2024 10:44 AM [facility] Calcium Ionized Arterial 1.14(L) 1.15 - 1.29 mmol/L 01/02/2024 10:44 AM [facility] pH Arterial 7.35 7.35 - 7.45 01/02/2024 10:44 AM [facility] P CO2 Arterial 42.9 35.0 - 48.0 mmHg 01/02/2024 10:44 AM [facility] P O2 Arterial 164(H) 83 - 108 mmHg 01/02/2024 10:44 AM [facility] Bicarbonate Arterial 24 21 - 28 mmol/L 01/02/2024 10:44 AM [facility] WB Anion Gap 13 7 - 16 mmol/L 01/02/2024 10:44 AM [facility] Base Excess Arterial -2 -2 - 3 mmol/L 01/02/2024 10:44 AM [facility] Oxygen Saturation Arterial 99 95 - 99 % 01/02/2024 10:44 AM [facility] Oxygen FLOW Rate/ FiO2 01/02/2024 10:44 AM [facility] O2 Therapy 01/02/2024 10:44 AM [facility] Art Kirill Test Not Applicable (Arterial Line Draw) 01/02/2024 10:44 AM [facility] Blood Arterial blood specimen / Unknown Arterial [...] LAB BLOOD ORDERABLES Final Re sult [facility] Unless otherwise noted, all lab tests performed by: Division of Pathology and Laboratory Medicine [address] [place] [id number] * Intraoperative Ultrasound - For Image Storage [...] BLOOD BANK TEST ORDERABLES Final Result [facility] - TRANSFUSION SERVICES [facility] Transfusion [facility] [address] [facility] [id number] [place] [address] * Preop Updated Expiration (12/23/2023 8:51 AM CDT) Pathologist [facility] PREOP STATUS 01/02/2024 11:33 PM CDT [facility] PREOP EXP DATE 01/02/2024 01/02/2024 11:33 PM CDT [facility] Blood Peripheral blood specimen / Unknown Venipuncture / Unknown 12/23/2023 8:51 AM CDT 12/23/2023 9:00 AM CDT Margoth Souza MD BLOOD BANK TEST ORDERABLES Final Result [facility] - TRANSFUSION SERVICES [facility]fusion [facility] [address] [employer] [id number] [place] [address] * (ABNORMAL) Urinalysis with Reflex Culture (12/23/2023 8:51 AM CDT) Pathologist [facility] Urine Appearance Clear Clear 12/23/19 9:33 AM CDT [facility] Urine Color Straw Colorless, Straw, Yellow, Dark Yellow, Straw-Yellow 12/23/2023 9:33 AM CDT [facility] Urine Specific Flushing 1.032 1.003 - 1.035 12/23/2023 9:33 AM CDT [facility] Urine pH 6.0 5.0 - 8.0 12/23/2023 9:33 AM CDT [facility] Urine Glucose >=1000(A) Negative mg/dL 12/23/2023 9:33 AM CDT [facility] Urine Ketones Negative Negative mg/dL 12/23/2023 9:33 AM CDT [facility] Urine Blood Negative Negative 12/23/2023 9:33 AM CDT [facility] Urine Protein 30(A) Negative mg/dL 12/23/2023 9:33 AM CDT [facility] Urine Bilirubin Negative Negative 9:33 AM CDT [facility] Urine Urobilinogen Negative Negative 12/23/2023 9:33 AM CDT [facility] Urine Nitrite Negative Negative 12/23/2023 9:33 AM CDT [facility] Urine Leukocyte Esterase Negative Negative 12/23/2023 9:33 AM CDT [facility] Urine Mucous Not Seen Not Seen, Trace /HPF 12/23/2023 9:33 AM CDT [facility] Urine Bacteria Not Seen Not Seen /HPF 12/23/2023 9:33 AM CDT [facility] Urine Squamous Epithelial Cells OCC Not Seen, OCC, Rare /HPF 12/23/2023 9:33 AM CDT [facility] Urine WBC <1 <=2 /HPF 12/23/2023 9:33 AM CDT [facility] Urine RBC 1 <=2 /HPF 12/23/2023 9:33 AM CDT [facility] Urine Voided urine specimen / Unknown Non-blood Collection / Unknown 12/23/2023 8:51 AM CDT 12/23/2023 9:10 AM CDT [facility] - 12/23/2023 9:33 AM CDT Some reporting parameters within the Urinalysis test have changed due to the implementation of new instrumentation in the [facility], allowing greater sensitivity of measurement. Urinalysis results reported by the [facility] using existing instrumentation, as well as Urinalysis testing performed manually or by back-up methodology at the main campus, will remain relatively unchanged. New reporting parameters and units will now be reported for all [employer]. us Margoth Souza MD URINE ORDERABLES Final Result [facility] Unless otherwise noted, all lab tests performed by: Division of Pathology and Laboratory Medicine [address] [place] [address] * 30-Day Pre-Op Type and Screen (12/23/2023 [...] TEST ORDERABLES Final Result Performing Organization Address City/[facility] [facility]/ZIP Co de Phone Number [facility] [address] [facility] [address] [place] [address] * TMP Interpretation Exception PreOp Expiration (12/23/2023 [...] BLOOD BANK TEST ORDERABLES Final Result [facility] [address] [place] [address] [address] [place] [address] * ACTH (12/09/2023 9:45 AM CDT) Pathologist [facility] ACTH 22 7 - 63 pg/mL [...] with extended dilution as it exceeds the slot floorperson's recommended limit. ACTH reference intervals are established for the morning hours from 7-10 am. Due to the circadian rhythm of ACTH levels in plasma, the sample collection time must be noted. Caution should be exercised when interpreting such values and done in conjunction with clinical context. Veronica Del Castillo APRN LAB BLOOD ORDERABLES Final Result Performing Organization Address [facility] Co de Phone Number [facility] Unless otherwise noted, all lab tests performed by: Division of Pathology and Laboratory Medicine [address] [place] [id number] * DHEA Sulfate (12/09/2023 9:45 AM CDT) [facility] DHEAS-[place] 81 20 - 299 mcg/dL 12/10/2023 12:10 PM CDT [facility] Comment: Test Performed by: [facility] [address] [place] [id number] First Press Operator: Mary Jane Topete Ph.D.; CLIA# [id number] Blood Peripheral blood specimen / Unknown Venipuncture / Unknown 12/09/2023 9:45 AM CDT 12/09/2023 9:56 AM CDT Veronica Del Castillo APRN LAB BLOOD ORDERABLES Final Result [facility] MATTHE[facility] * Cortisol, Total (12/09/2023 9:45 AM CDT) Cortisol 11.39 4.82 - 19.50 mcg/dL 12/09/2023 11:00 AM CDT [facility] Blood Peripheral blood specimen / Unknown Venipuncture / Unknown 12/09/2023 9:45 AM CDT 12/09/2023 9:55 AM CDT Narrative [facility] - 12/09/2023 11:00 AM CDT [...] 2.47 - 11.9 mcg/dL Veronica Del Castillo GEOSPATIAL IMAGE ANALYST LAB BLOOD ORDERABLES Final Result Performing Organization Address City/[facility] Co de Phone Number [facility] Unless otherwise noted, all lab tests performed by: Division of Pathology and Laboratory Medicine [address] [place] [id number] * IR CT GUIDED BIOPSY RENAL (10/03/2023 10:27 AM CDT) Anatomical Region Laterality Modality Abdomen/Pelvis, Organ (liver/spleen/kidney) Computed Tomography Narrative 10/04/2023 9:03 AM CDT Table formatting from the original result was not included. Date of Procedure: 10/03/23 Attending Physician: Kumar Comer MD Guide Travel: None Pre Procedure Diagnosis: Renal mass Post [...] second(s) 10/03/2023 9:57 AM CDT [facility] International Normalization Ratio 0.98 0.87 - 1.12 10/03/2023 9:57 AM CDT [facility] Blood Peripheral blood specimen / Unknown Venipuncture / Unknown 10/03/2023 9:27 AM CDT 10/03/2023 9:28 AM CDT us Abilio Ng PA-C LAB BLOOD ORDERABLES Final Result [facility] [address] [place] [address] * Type and Screen (10/03/2023 9:27 AM [...] BLOOD BANK TEST ORDERABLES Final Result [facility] [address] [place] [address] after 10/03/2023 Insurance MEDICARE PART A AND B MEDICARE PART A AND B Advance Directives * Full Code (Latest Code Status on File) Date Activated Date Inactivated Comments 04/12/2024 1:24 PM 04/12/2024 5:43 PM * Full Code Date Activated Date Inactivated Comments 01/02/2024 1:48 PM 01/03/2024 7:17 PM Care Teams Auto Suspension And Steering Mechanic Relationship Specialty Start Date End Date Margoth Souza MD [address] [place] [phone] [email or web address] PCP - General Urology 07/30/23 04/14/24 Eagle Zhu DO [address] [place] [phone] [email or web address] PCP - External Primary Care Provider Family Practice 04/08/24 Marianela Hutchinson MD [address] [place] [phone] [email or web address] PCP - General Gastrointestinal Medical Oncology 05/04/24 Mary Jane Cassidy MD [address] [place] [phone] [email or web address] Consulting Physician Endocrinology 12/09/23 Barry He MD [address] [place] [phone] [email or web address] Consulting Physician Internal Medicine 12/23/23 Patience Hunt MD [address] [place] [phone] [email or web address] Consulting Physician Endocrinology 12/31/23 Marianela Hutchinson MD [address] [place] [phone] [email or web address] Consulting Physician Gastrointestinal Medical Oncology 04/13/24 Margoth Souza MD [address] [place] [phone] [email or web address] Consulting Physician Urology 04/15/24 Ceci Nicholson MD [address] [place] [phone] [email or web address] Consulting Physician Internal Medicine 04/09/24 Sigifredo Davenport MD [address] [place] [phone] [email or web address] Consulting Physician Internal Medicine 06/29/24 Abilio Ng, PAJeanC [address] [place] [phone] Physician Guide Travel Interventional Radiology 10/02/23
[2024-10-02] MEDS ORDERED: METOCLOPRAMIDE 10 MG/2mL INJ ONE (04:32)
--- NOTE | 2024-10-02 05:12 | EDPHYS ---
Physician Documentation [facility] Name: Zeke Mackay Sr Age: 59 yrs Sex: Male : 1965 Arrival Date: 10/02/2024 Time: 03:29 Bed 16 Private MD: Marko [facility] ED Physician MeganEmma HPI: 10/02 05:06 This 59 yrs old Male presents to ER via Ambulatory with complaints of Nausea. gb1 05:06 59-year-old male with metastatic cancer is here with nausea no vomiting. He ate has no gb1 abdominal pain or fever. This feels like his normal nausea that he gets that he comes to the ER routinely for. He denies any fever or chills any cough chest pain or shortness of breath.. 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 - Infectious Disease History:: Denies. - Social history:: Smoking status: Patient denies any tobacco usage or history of. Patient uses street drugs, marijuana, Patient/guardian denies using alcohol. Exam: 05:06 Constitutional: This is a well developed, well nourished patient who is awake, alert, gb1 and in no acute distress. Head/Face: Normocephalic, atraumatic. Eyes: Pupils equal round and reactive to light, extra-ocular motions intact. Lids and lashes normal. Conjunctiva and sclera are non-icteric and not injected. Cornea within normal limits. Periorbital areas with no swelling, redness, or edema. ENT: Nares patent. No nasal discharge, no septal abnormalities noted. Tympanic membranes are normal and external auditory canals are clear. Oropharynx with no redness, swelling, or masses, exudates, or evidence of obstruction, uvula midline. Mucous membranes moist. Neck: Trachea midline, no thyromegaly or masses palpated, and no cervical lymphadenopathy. Supple, full range of motion without nuchal rigidity, or vertebral point tenderness. No Meningismus. Chest/axilla: Normal chest wall appearance and motion. Nontender with no deformity. No lesions are appreciated. Cardiovascular: Regular rate and rhythm with a normal S1 and S2. No gallops, murmurs, or rubs. Normal PMI, no JVD. No pulse deficits. Respiratory: Lungs have equal breath sounds bilaterally, clear to auscultation and percussion. No rales, rhonchi or wheezes noted. No increased work of breathing, no retractions or nasal flaring. Abdomen/GI: Soft, non-tender, with normal bowel sounds. No distension or tympany. No guarding or rebound. No evidence of tenderness throughout. Skin: Warm, dry with normal turgor. Normal color with no rashes, no lesions, and no evidence of cellulitis. MS/ Extremity: Pulses equal, no cyanosis. Neurovascular intact. Full, normal range of motion. Vital Signs: 03:56 BP 171 / 83; Pulse 70; Resp 18; Temp 97.5; Pulse Ox 100% ; Weight 86.18 kg; Height 6 br2 ft. 2 in. ; Pain 0/10; 04:12 BP 166 / 105; Pulse 72; Resp 18; Pulse Ox 100% on R/A; rg5 03:56 Body Mass Index 24.39 (86.18 kg, 187.96 cm) br2 03:56 Pain Scale: Adult br2 MDM: 03:57 Medical Screening Exam initiated gb1 05:06 ED course: 59-year-old male with nausea that is his normal nausea no vomiting. Patient gb1 denies any abdominal pain or fever, chills. Doubt acute appendicitis, SBO or acute pancreatitis or acute cholecystitis. I doubt biliary colic. Patient's abdomen was soft nontender and no signs of peritonitis.. Administered Medications: 04:40 Drug: metoCLOPramide IM 10 mg IM once Route: IM; Site: left deltoid; rg5 04:55 Follow up: Response: No adverse reaction rg5 Disposition Summary: 10/02/24 05:12 Discharge Ordered Notes: Location: Home gb1 Condition: Stable gb1 Diagnosis - Nausea gb1 Followup: gb1 - With: Private Physician - When: - Reason: Continuance of care Discharge Instructions: - Discharge Summary Sheet gb1 - Nausea, Adult gb1 Forms: - Medication Reconciliation Form gb1 - Antibiotic Education gb1 - Prescription Opioid Use gb1 - Patient Portal Instructions gb1 - Leadership Thank You Letter gb1 Signatures: Emma Guzman MD MD gb1 Alec Fuentes, RN RN rg5 Courtney Dubose RN RN br2
--- NOTE | 2024-10-02 05:12 | ER ---
Nurse's Notes [facility] Name: Zeke Mackay Sr Age: 59 yrs Sex: Male : 1965 Arrival Date: 10/02/2024 Time: 03:29 Bed 16 Private MD: Eagle Zhu Diagnosis: Nausea Presentation: 10/02 03:56 Chief complaint: Patient states: PT STATES HE WAS SLEEPING AND WOKE UP VOMITING. 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 Coronavirus screen: Client denies travel out of the [place] in the last 14 days. Ebola Screen: Patient denies exposure to infectious person. Initial Sepsis Screen: Does the patient meet any 2 criteria? No. Patient's initial sepsis screen is negative. Does the patient have a suspected source of infection? No. Patient's initial sepsis screen is negative. Risk Assessment: Do you want to hurt yourself or someone else? Patient reports no desire to harm self or others. Onset of symptoms was October 02, 2024 at 03:00. 03:56 Method Of Arrival: Ambulatory br2 03:56 Acuity: RICKEY 3 br2 Triage Assessment: 04:03 General: Appears in no apparent distress. comfortable, Behavior is calm, cooperative. br2 Pain: Denies pain. GI: Reports nausea, vomiting. 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 - Infectious Disease History:: Denies. - Social history:: Smoking status: Patient denies any tobacco usage or history of. Patient uses street drugs, marijuana, Patient/guardian denies using alcohol. Screenin:01 [facility] ED Fall Risk Assessment (Adult) History of falling in the last 3 months, br2 including since admission No falls in past 3 months (0 pts) Confusion or Disorientation No (0 pts) Intoxicated or Sedated No (0 pts) Impaired Gait No (0 pts) Mobility Assist Device Used No (0 pt) Altered Elimination No (0 pt) Score/Fall Risk Level 0 - 2 = Low Risk Oriented to surroundings. Abuse screen: Denies threats or abuse. Denies injuries from another. Nutritional screening: No deficits noted. Tuberculosis screening: No symptoms or risk factors identified. Assessment: 04:14 General: Appears in no apparent distress. Behavior is calm, cooperative, appropriate rg5 for age. Neuro: Level of Consciousness is awake, alert, obeys commands, Oriented to person, place, time, situation. Cardiovascular: Denies chest pain, Patient's skin is warm and dry. Respiratory: Airway is patent Trachea midline Respiratory effort is even, unlabored, Respiratory pattern is regular, symmetrical. GI: Abdomen is flat, Reports nausea, vomiting. : No signs and/or symptoms were reported regarding the genitourinary system. EENT: No deficits noted. Derm: Skin is intact, Skin is dry, Skin is normal, Skin temperature is warm. Musculoskeletal: Circulation, motion, and sensation intact. Range of motion: intact in all extremities. 04:54 Reassessment: Patient states feeling better. Patient states symptoms have improved. rg5 Vital Signs: 03:56 BP 171 / 83; Pulse 70; Resp 18; Temp 97.5; Pulse Ox 100% ; Weight 86.18 kg; Height 6 br2 ft. 2 in. ; Pain 0/10; 04:12 BP 166 / 105; Pulse 72; Resp 18; Pulse Ox 100% on R/A; rg5 03:56 Body Mass Index 24.39 (86.18 kg, 187.96 cm) br2 03:56 Pain Scale: Adult br2 ED Course: 03:34 Patient arrived in ED. gm2 03:34 Eagle Zhu DO is Private Physician. gm2 03:38 Emma Guzman MD is Attending Physician. gb1 04:00 Triage completed. br2 04:00 Alec Fuentes, ARTURO is Primary Nurse. rg5 04:01 Patient has correct armband on for positive identification. Bed in low position. Call br2 light in reach. Side rails up X 1. Provided Education on: PLAN OF CARE. 04:03 Arm band placed on left wrist. br2 04:14 No provider procedures requiring assistance completed. rg5 04:54 Patient did not have IV access during this emergency room visit. rg5 Administered Medications: 04:40 Drug: metoCLOPramide IM 10 mg IM once Route: IM; Site: left deltoid; rg5 04:55 Follow up: Response: No adverse reaction rg5 Medication: 04:14 VIS not applicable for this client. rg5 Outcome: 05:12 Discharge ordered by . anette 05:18 Discharged to home ambulatory, rg5 05:18 Condition: stable 05:18 Discharge instructions given to patient, 05:18 Patient left the ED. rg5 Signatures: Emma Guzman MD MD gb1 Trina Reynoso 2 Alec Fuentes, RN RN rg5 Courtney Dubose RN RN br2
[2024-10-02 05:26] VITALS: TEMP 97.5; O2SAT 100
[2024-10-02 05:28] VITALS: BP 166/105
== END 2024-10-02 05:18 | disposition home or self-care (01) ==
LOC: ER 03:29
DX: R11.0 Nausea (principal); E11.9 Type 2 diabetes mellitus without complications; I10 Essential (primary) hypertension; Z85.528 Personal history of other malignant neoplasm of kidney; Z85.028 Personal history of other malignant neoplasm of stomach; Z85.01 Personal history of malignant neoplasm of esophagus; Z95.1 Presence of aortocoronary bypass graft
CPT/HCPCS: 96372; 99284; J2765

== ENCOUNTER 2024-10-04 00:33 | Emergency (ER) | payer OTHER, BC ==
--- OUTSIDE RECORDS SUMMARY | 2024-10-04 00:42 | XMS REPORT | Clinical Summary ---
Author Name Unknown Organization [facility] Address [address] [place] [address] Care Team Providers Care Bellstand Attendant Name Role Phone Margoth Souza MD Primary Care Provider [phone] Mary Jane Cassidy MD Unavailable [phone] Barry He MD Unavailable Patience Hunt MD Unavailable Eagle Zhu DO Unavailable [phone] Marianela Hutchinson MD Unavailable [phone] Margoth Souza MD Unavailable Ceci Nicholson MD Unavailable [phone] Marianela Hutchinson MD Primary Care Provider [phone] Sigifredo [place] MD Unavailable Abilio Ng-Adams Unavailable [phone] Allergies No known active allergies Medications insulin [...] by Tylenol). 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 01/02/2024 04/14/2024 Diabetic ketoacidosis 2023 Overview (01/01/2024): Hospitalized locally 12/03/2023-12/06/2023 Encounters Date Type Department Care Team Description 10/02/2024 Orders Only [facility] [address] [place] [address], 7th [place] [address] Gillian Gomez PA-C 09/25/2024 Telephone MDA ASKSDA PHYSICIAN [address] [place] [address] Jane Sanchez, roofing technician Call 09/23/2024 8:56 PM CDT - 09/23/2024 11:34 PM CDT [facility] [address] [place] [address], 1st [place] [address] Otf Glaser MD Encounter for adjustment and management of vascular access device (Primary Dx); Hypertension Discharge Disposition: Home 09/23/2024 6:50 PM CDT [facility]fusion [facility] [place] [address] [facility], 8th [place] [address] Marianela Hutchinson MD Rocafort, Roy G, RN Adenocarcinoma of stomach (Primary Dx) 09/21/2024 4:30 PM CDT Infusion [facility] [place] [address] [facility], 8th [place] [address] Marianela Hutchinson MD Joseph, Divya, RN Adenocarcinoma of stomach (Primary Dx); Iron deficiency anemia, not otherwise specified 09/21/2024 2:20 PM CDT [facility]Up [facility] [address] [place] [address], 7th [place] [address] Marianela Hutchinson MD Adenocarcinoma of stomach 09/21/2024 12:48 PM CDT - 09/21/2024 11:59 PM CDT Hospital Encounter [facility] [address] [place] [place] [address] Marianela Hutchinson MD Adenocarcinoma of stomach Discharge Disposition: Home 09/21/2024 Orders Only [facility] [address] [place] [address], 7th [place] [address] Marianela Hutchinson MD Adenocarcinoma of stomach (Primary Dx) 09/21/2024 Orders Only [facility] [address] [place] [address], 7th [facility] [place] [address] Radha Castellon [facility] Adenocarcinoma of stomach (Primary Dx); Diarrhea 09/21/2024 Travel 09/21/2024 Orders Only Amb[facility] [address] [place] [address], 8th [place] [address] Marianela Hutchinson MD Adenocarcinoma of stomach (Primary Dx) 09/09/2024 6:30 PM CDT Infusion [facility] - [address], 8th [place] [address] Marianela Hutchinson MD Balason, Adda Rica F, RN Adenocarcinoma of stomach (Primary Dx) 09/09/2024 Travel 09/07/2024 4:30 PM CDT Infusion [facility] Treatment [place] - [address], 8th [place] [address] Marianela Hutchinson MD Castillo, Emmanuel, RN Adenocarcinoma of stomach (Primary Dx); Iron deficiency anemia, not otherwise specified 09/07/2024 1:00 PM CDT [facility] [address] [place] [address], [address] [place], [place] [address] [address] Marianela Hutchinson MD Adenocarcinoma of stomach (Primary Dx) 09/07/2024 10:41 AM CDT - 09/07/2024 11:59 PM CDT Hospital Encounter [facility] [address] [place] [place] [address] Marianela Hutchinson MD Adenocarcinoma of stomach Discharge Disposition: Home 09/07/2024 Orders Only [facility] [address] [place] [address], 7th [place] [address] Marianela Hutchinson MD Adenocarcinoma of stomach (Primary Dx) 09/07/2024 Orders Only [facility] [address] [place] [address], 7th [place] [address] Rdaha Castellon [facility] Adenocarcinoma of stomach (Primary Dx); Iron deficiency anemia, not otherwise specified 09/07/2024 Travel 08/26/2024 7:41 PM CDT - 08/26/2024 11:59 PM CDT Hospital Encounter Ambulatory Treatment Center - [address], 2nd Floor, [place] [address] Marianela Hutchinson MD Le, Lam, RN Adenocarcinoma of stomach (Primary Dx) Discharge Disposition: Home 08/24/2024 1:40 PM CDT [facility] [address] [place] [address], 7th [place] [address] Marianela Hutchinson MD Adenocarcinoma of stomach 08/24/2024 12:42 PM CDT - 08/24/2024 11:59 PM CDT Hospital Encounter Ambulatory Treatment Center - [address], 2nd Floor, [place] [address] Gillian Gomez PA-C Harrison, Kishanda S RN Adenocarcinoma of stomach (Primary Dx) Discharge Disposition: Home 08/24/2024 11:16 AM CDT - 08/24/2024 12:41 PM CDT Hospital Encounter [facility] [address] [place] [place] [address] Gillian Gomez PA-C Adenocarcinoma of stomach Discharge Disposition: Home 08/24/2024 Orders Only [facility] [address] [place] [address], 7th [place] [address] Marianela Hutchinson MD Adenocarcinoma of stomach (Primary Dx) 08/24/2024 Telephone [facility] [address], 7th [place] [address] Mony Saavedra, RN 08/24/2024 Orders Only [facility] [address] Bldg, 7th [place] [address] Radha Castellon, [facility] Adenocarcinoma of stomach (Primary Dx) 08/24/2024 Travel 08/24/2024 Orders Only Ambulatory Treatment Center - Main Building [address] Main Bldg, 2nd Floor, [place] [address] Marianela Huthcinson MD Adenocarcinoma of stomach (Primary Dx) 08/21/2024 Telephone [facility] [address], 7th [place] [address] Milagros Rogers RN 08/17/2024 Orders Only [facility] [address], 7th [place] [address] Gillian Gomez PA-C Adenocarcinoma of stomach (Primary Dx) 08/06/2024 Orders Only Gastrointestinal Center [facility], 7th [place] [address] Radha Castellon, [facility] 07/22/2024 Orders Only [facility] [address] [facility], 8th [place] [address] Marianela Hutchinson MD Adenocarcinoma of stomach (Primary Dx) 07/21/2024 Telephone [facility] [address] [facility], 8th [place] [address] Rosanna Álvarez, ARTURO Chemotherapy Teaching 07/16/2024 2:40 PM HOSPITAL RECRUITER Follow-Up [facility] [address] Bldg, 7th [place] [address] Marianela Hutchinson MD Adenocarcinoma of stomach (Primary Dx) 07/16/2024 Orders Only [facility]astrointestinal Center [facility] Main Bldg, 7th [place] [address] Marianela Hutchinson MD Adenocarcinoma of stomach (Primary Dx) 07/16/2024 Orders Only [facility] Main Bldg, 7th [place] [address] Radha Castellon, [facility] Adenocarcinoma of stomach (Primary Dx) 07/16/2024 Travel 07/15/2024 10:08 AM HOSPITAL RECRUITER - 07/15/2024 11:59 PM HOSPITAL RECRUITER Hospital Encounter CT [facility] [address] [facility] Main Bldg, 3rd [place] [address] Mary Kay Santamaria APRN Adenocarcinoma of stomach Discharge Disposition: Home 07/15/2024 9:49 AM HOSPITAL RECRUITER - 07/15/2024 10:07 AM HOSPITAL RECRUITER Hospital Encounter [facility] [address] [place] [address] [place] [address] Mary Kay Santamaria APRN Adenocarcinoma of stomach Discharge Disposition: Home 07/07/2024 Orders Only [facility] [address] [place] [address] Main dg, 7th [place] [address] Gillian Gomez PA-C Adenocarcinoma of stomach (Primary Dx) 07/06/2024 Telephone [facility] - Surgical Oncology [address] [place] [address] Main dg, 7th [place] [address] Mary Kay Santamaria APRN 07/06/2024 Orders Only [facility] - Surgical Oncology [address] [place] [address] Main dg, 7th [place] [address] Mary Kay Santamaria APRN 07/06/2024 Orders Only [facility] [address] [place] [address] Main Bldg, 7th [place] [address] Gillian Gomez PA-C Adenocarcinoma of stomach (Primary Dx) 07/06/2024 Multidisciplinary Visit [facility] [address] [place] [address] Main Bldg, 7th [place] [address] Gillian Gomez PA-C 07/06/2024 Orders Only [facility] [address] [place] [address] Main Bldg, 7th [place] [address] Donnell Van Adenocarcinoma of stomach (Primary Dx) 07/02/2024 11:00 AM HOSPITAL RECRUITER Nutrition Clinical Nutrition For your Nutrition appointment location directions please call: Marianela Hutchinson MD Munder, Kathryn, SCOTT Left without seen 07/02/2024 10:30 AM HOSPITAL RECRUITER Follow-Up [facility] - Surgical Oncology [address] [place] [address] Main Bldg, 7th [place] [address] John Fong MD Adenocarcinoma of stomach 07/02/2024 Documentation [facility] - Surgical Oncology [address] [place] [address] Main dg, 7th [place] [address] John Fong MD 06/30/2024 3:33 PM HOSPITAL RECRUITER Anesthesia Event Perioperative Evaluation and Management Center [address] [place] [address] Main dg, 6th [place] [address] Lien Antonio, ARTURO 06/30/2024 12:25 PM HOSPITAL RECRUITER Anesthesia Event Endoscopy Center [address] [place] [address] Main Bldg, 5th [place] [address] Susana Kelly MD 06/30/2024 12:00 PM HOSPITAL RECRUITER - 06/30/2024 12:45 PM HOSPITAL RECRUITER Surgery [facility]oscopy [facility] [address] [place] [address] Main Bldg, 5th [place] [address] Brandon Alcala MD DIAGNOSTIC UPPER GASTROINTESTINAL ENDOSCOPY 06/30/2024 10:15 AM HOSPITAL RECRUITER - 06/30/2024 2:24 PM HOSPITAL RECRUITER Hospital Encounter Endoscopy Center [address] [place] [address] Main Bldg, 5th [place] [address] Brandon Alcala MD Adenocarcinoma of stomach Discharge Disposition: Home 06/30/2024 Travel 06/29/2024 9:00 AM HOSPITAL RECRUITER Consult Perioperative Evaluation and Management [address] [place] [address] Main [facility], 6th [place] [address] Mary Kay Santamaria APRN Vu, Khanh D, MD Encounter for preprocedural cardiovascular examination (Primary Dx); Coronary arteriosclerosis, not otherwise specified; Cardiomyopathy, not otherwise specified; Hypertension; 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; Type 2 diabetes mellitus with hyperglycemia; Dyslipidemia; Hyponatremia; Hyperkalemia; Adenocarcinoma of stomach; Paroxysmal atrial fibrillation; Hyperlipidemia, not otherwise specified 06/29/2024 8:00 AM HOSPITAL RECRUITER POEM Appointments [facility] [address] [place] [address] Main [facility], 6th [place] [address] Marianela Hutchinson MD 06/29/2024 7:30 AM HOSPITAL RECRUITER - 06/29/2024 11:59 PM HOSPITAL RECRUITER Hospital Encounter [facility] - Cardiology [address] [place] [address] Main [facility], 2nd [place] [address] Mary Kay Santamaria APRN Adenocarcinoma of stomach Discharge Disposition: Home 06/29/2024 Travel 06/23/2024 Documentation [facility] [address] [place] [address] Main [facility], 7th [place] [address] Mony Saavedra RN 06/22/2024 12:20 PM HOSPITAL RECRUITER Follow-Up [facility] [address] [place] [address] Main [facility], 7th [place] [address] Marianela Hutchinson MD Adenocarcinoma, NOS of stomach, NOS 06/22/2024 Orders Only [facility] [address] [place] [address] Main [facility], 7th [place] [address] Radha Castellon RPH 06/22/2024 Travel 06/20/2024 10:45 AM HOSPITAL RECRUITER - 06/20/2024 11:59 PM HOSPITAL RECRUITER Hospital Encounter Diagnostic Imaging Center [address] [place] [address] Main [facility], 3rd [place] [address] Adenocarcinoma, NOS of stomach, NOS; Malignant neoplasm of overlapping sites of esophagus Discharge Disposition: Home 06/20/2024 10:08 AM HOSPITAL RECRUITER - 06/20/2024 10:44 AM HOSPITAL RECRUITER Hospital Encounter [facility] [address] [place] [place] [address] Gillian Gomez PA-C Adenocarcinoma, NOS of stomach, NOS Discharge Disposition: Home 06/16/2024 Telephone [facility] - Surgical Oncology [address] [place] [address], 7th [place] [address] Mary Kay Santamaria, FRANK 06/15/2024 1:30 PM HOSPITAL RECRUITER Infusion [facility] [address] [facility], 8th [place] [address] Marianela Hutchinson MD [facility], Jorge Tyson RN Adenocarcinoma of stomach (Primary Dx); Iron deficiency anemia, not otherwise specified 06/15/2024 12:40 PM HOSPITAL RECRUITER Follow-Up [facility] [address] [place], [place] [address] [address] Marianela Hutchinson MD Adenocarcinoma, NOS of stomach, NOS; Malignant neoplasm of overlapping sites of esophagus 06/15/2024 10:24 AM HOSPITAL RECRUITER - 06/15/2024 11:59 PM HOSPITAL RECRUITER Hospital Encounter [facility] [address] [place] [place] [address] Marianela Hutchinson MD Adenocarcinoma of stomach; Adenocarcinoma, NOS of stomach, NOS Discharge Disposition: Home 06/15/2024 Orders Only [facility] [address] [place] [address], [address] [place] [address] Radha Castellon, [facility] Adenocarcinoma of stomach (Primary Dx) 06/15/2024 Orders Only [facility] [address] [place], [place] [address] [address] Gillian Gomez PA-C 06/15/2024 Travel 06/15/2024 Telephone [facility] - Gastroenterology, Hepatology & Nutrition [address] [place] [address], [address] [place] [address] [place] [address] Arnaldo Araujo PA-C 06/15/2024 Multidisciplinary Visit [facility] [address] [place] [address], 7th [place] [address] Lakeshia Pablo PA 06/15/2024 Orders Only Gastrointestinal Center [facility] Main [facility], 7th [place] [address] Marianela Hutchinson MD Adenocarcinoma of stomach (Primary Dx) 06/12/2024 Prep for Surgery [facility] - Gastroenterology, Hepatology & Nutrition [facility] Main [facility], 7th [place] [address] Arnaldo Araujo PA-C Adenocarcinoma of stomach (Primary Dx) 06/12/2024 Telephone [facility] - Surgical Oncology [facility], 7th [place] [address] Mary Kay Santamaria APRN 06/12/2024 Orders Only [facility] - Surgical Oncology [facility], 7th [place] [address] Mary Kay Santamaria APRN Adenocarcinoma of stomach (Primary Dx) 06/10/2024 Orders Only [facility] - Surgical Oncology [facility], 7th [place] [address] Mary Kay Santamaria APRN Adenocarcinoma of stomach (Primary Dx) 06/05/2024 Telephone [facility] - Gastroenterology, Hepatology & Nutrition [facility] Main [facility], 7th [place] [address] Arnaldo Araujo PA-C 06/03/2024 5:30 PM HOSPITAL RECRUITER Infusion [facility] [address] [facility], 8th [place] [address] Marianela Hutchinson MD Lewandowski, Teresa M, RN Adenocarcinoma of stomach (Primary Dx) 06/03/2024 Travel 06/02/2024 Telephone Gastrointestinal [place] [address] [facility] Main [facility], 7th [place] [address] Mony Saavedra, RN 06/01/2024 1:00 PM HOSPITAL RECRUITER Infusion [facility] Treatment Center [facility], Floor 6 [place] [address] Marianela Hutchinson MD Shaik, Anna Marie B, RN Adenocarcinoma of stomach (Primary Dx); Iron deficiency anemia, not otherwise specified 06/01/2024 10:53 AM HOSPITAL RECRUITER - 06/01/2024 11:59 PM HOSPITAL RECRUITER Hospital Encounter [facility] [address] [place] [address] Marianela Hutchinson MD Adenocarcinoma of stomach; Iron deficiency anemia, not otherwise specified Discharge Disposition: Home 06/01/2024 Orders Only [facility] [address] [place] [address], 7th [place] [address] Marianela Hutchinson MD 06/01/2024 Orders Only Gastrointestinal [address], [address] [place] [address] [place] [address] Radha Castellon, [facility] Adenocarcinoma of stomach (Primary Dx); Iron deficiency anemia, not otherwise specified 06/01/2024 Travel 06/01/2024 Orders Only [facility] Treatment [address], Floor 6 [place] [address] Marianela Hutchinson MD Adenocarcinoma of stomach (Primary Dx) 05/26/2024 Telephone [facility] - Gastroenterology, Hepatology & Nutrition [address] [place] [address], 7th [place] [address] Arnaldo Araujo PA-C 05/22/2024 Telephone [facility] - Gastroenterology, Hepatology & Nutrition [address] [place] [address], 7th [place] [address] Arnaldo Araujo PA-C 05/22/2024 Orders Only [facility] - Gastroenterology, Hepatology & Nutrition [address] [place] [address], 7th [place] [address] Anraldo Araujo PA-C Candidal esophagitis (Primary Dx) 05/20/2024 4:30 PM HOSPITAL RECRUITER - 05/20/2024 11:59 PM HOSPITAL RECRUITER Hospital Encounter Ambulatory Treatment Center - Main Building [address] [place] [address], 2nd Floor, [place] [address] Marianela Hutchinson MD Lewandowski, Teresa M, RN Adenocarcinoma of stomach Discharge Disposition: Home 05/19/2024 12:44 PM HOSPITAL RECRUITER Anesthesia Event [facility]oscopy Center [address] [place] [address], 5th [place] [address] Maurice Ferrera MD Thomas, Ashly, PAXTON 05/19/2024 12:00 PM HOSPITAL RECRUITER - 05/19/2024 1:10 PM HOSPITAL RECRUITER Surgery Endoscopy Center [address] [place] [address], 5th [place] [address] Brandon Alcala MD UPPER GASTROINTESTINAL ENDOSCOPY OF ESOPHAGUS, STOMACH, OR DUODENUM ANDJ ADJACENT STRUCTURES, WITH ENDOSCOPIC ULTRASOUND EXAMINATION 05/19/2024 11:17 AM HOSPITAL RECRUITER - 05/19/2024 2:49 PM HOSPITAL RECRUITER Hospital Encounter Endoscopy Center [address] [place] [address], 5th [place] [address] Brandon Alcala MD Adenocarcinoma of stomach Discharge Disposition: Home 05/19/2024 Travel 05/18/2024 1:00 PM HOSPITAL RECRUITER Infusion [facility] - [facility] [address] [place] [address] [facility], Floor 6 [place] [address] Marianela Hutchinson MD Rupp, Alexa B, RN Adenocarcinoma of stomach (Primary Dx) 05/18/2024 12:20 PM HOSPITAL RECRUITER Follow-Up [facility] [address] [place] [address], 7th [place] [address] Marianela Hutchinson MD Adenocarcinoma, NOS of stomach, NOS 05/18/2024 11:00 AM HOSPITAL RECRUITER POEM Appointments Perioperative [facility] [address] [place] [address] Main [facility], 6th [place] [address] Marianela Hutchinson MD 05/18/2024 10:32 AM HOSPITAL RECRUITER - 05/18/2024 11:59 PM HOSPITAL RECRUITER Hospital Encounter [facility] [address] [place] [place] [address] Gillian Gomez PA-C Adenocarcinoma, NOS of stomach, NOS Discharge Disposition: Home 05/18/2024 Orders Only [facility] [address] [place] [address], 7th [place] [address] Marianela Hutchinson MD Adenocarcinoma of stomach (Primary Dx) 05/18/2024 Orders Only [facility] [address] [place] [address], 7th [place] [address] Radha Castellon [facility] Adenocarcinoma of stomach (Primary Dx); Iron deficiency anemia, not otherwise specified 05/18/2024 Travel 05/15/2024 11:59 PM HOSPITAL RECRUITER Anesthesia Event [facility] [address] [place] [address], 6th [place] [address] Eri Lynne RN 05/06/2024 5:30 PM HOSPITAL RECRUITER Infusion [facility] [address] [facility], 8th [place] [address] Marianela Hutchinson MD Pagara, Leni S, RN Adenocarcinoma of stomach 05/04/2024 12:36 PM HOSPITAL RECRUITER - 05/04/2024 11:59 PM HOSPITAL RECRUITER Hospital Encounter Ambulatory Treatment Center - [facility] Building [address] [place] [address], 2nd Floor, [place] [address] Gillian Gomez PA-C Jo, Edifia Sungsoon, RN Adenocarcinoma of stomach (Primary Dx) Discharge Disposition: Home 05/04/2024 12:20 PM HOSPITAL RECRUITER Follow-Up [facility] [address] [place] [address], 7th [place] [address] Marianela Hutchinson MD Adenocarcinoma, NOS of stomach, NOS 05/04/2024 11:10 AM HOSPITAL RECRUITER - 05/04/2024 12:35 PM HOSPITAL RECRUITER Hospital Encounter Diagnostic Laboratory [facility] [address] [place] [address] Gillian Gomez PA-C Adenocarcinoma, NOS of stomach, NOS; Adenocarcinoma of stomach Discharge Disposition: Home 05/04/2024 Orders Only [facility] [address] [place] [address], 7th [place] [address] Marianela Hutchinson MD Adenocarcinoma of stomach (Primary Dx) 05/04/2024 Orders Only [facility] [address] [place] [address], [facility] [place] [address] Radha Castellon, [facility] Adenocarcinoma of stomach (Primary Dx) 05/04/2024 Travel 04/30/2024 Orders Only [facility] - Surgical Oncology [address] [place] [address], [facility] [place] [address] Mary Kay Santamaria APRN Adenocarcinoma of stomach (Primary Dx); Paroxysmal atrial fibrillation; Hyperlipidemia, not otherwise specified; Type 2 diabetes mellitus with hyperglycemia 04/27/2024 8:05 PM HOSPITAL RECRUITER Ancillary Procedure Image Library [address] [place] [id number] Cancer 04/27/2024 8:00 PM HOSPITAL RECRUITER Ancillary Procedure Image Library [address] [place] [id number] Cancer 04/27/2024 Orders Only [facility] [address] [place] [address], [facility] [place] [address] Donnell Van Adenocarcinoma of stomach (Primary Dx) 04/24/2024 Documentation [facility] [address] [facility], 8th [place] [address] Mary Kay Santamaria APRN 04/24/2024 Orders Only [facility] On[facility] [address] [place] [address], [facility] [place] [address] Mary Kay Santamaria APRN Adenocarcinoma, NOS of stomach, NOS (Primary Dx) 04/24/2024 Telephone [facility] [address] [place] [address], [facility] [place] [address] Mary Kay Santamaria CREDIT COLLECTOR 04/22/2024 Lab Requisition [facility] LAB Sincere Moralez MD Jain, Shilpa, MD 04/21/2024 Orders Only [facility] [address] [place] [address] Main [facility], 7th [place] [address] Gillian Gomez PA-C Adenocarcinoma, NOS of stomach, NOS (Primary Dx); Adenocarcinoma of stomach 04/16/2024 Telephone [facility] PHYSICIAN [address] [place] [address] 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, roofing technician Call 04/15/2024 10:09 AM HOSPITAL RECRUITER Anesthesia Event MAIN OR [address] [place] [address] Meenakshi Crowe MD Miller, Wendy, [facility] 04/15/2024 10:05 AM HOSPITAL RECRUITER - 04/15/2024 1:25 PM HOSPITAL RECRUITER Surgery MAIN OR [address] [place] [address] John Fong MD ROBOTIC ASSISTED SURGICAL LAPAROSCOPY 04/15/2024 7:32 AM HOSPITAL RECRUITER - 04/15/2024 11:50 PM HOSPITAL RECRUITER Hospital Encounter MAIN OR [address] [place] [address] John Fong MD Adenocarcinoma of stomach (Primary Dx) Discharge Disposition: Home 04/15/2024 Travel 04/14/2024 2:30 PM HOSPITAL RECRUITER Consult [facility] [address] [place] [address], 7th Floor Elevator [place] [phone] Gillian Gomez PA-C Badgwell, Brian, MD Adenocarcinoma, NOS of stomach, NOS (Primary Dx); Nausea 04/14/2024 Documentation [facility] [address] [place] [address], 7th Floor Elevator [place] [phone] John Fong MD 04/13/2024 3:00 PM HOSPITAL RECRUITER Consult [facility] [address] [place] [address], [facility] [place] [address] Marianela Hutchinson MD Mass of stomach (Primary Dx) 04/13/2024 2:02 PM HOSPITAL RECRUITER Anesthesia Event [facility] [address] [place] [address], 6th [place] [address] Curtis Moctezuma PA 04/12/2024 8:22 AM HOSPITAL RECRUITER - 04/12/2024 3:42 PM HOSPITAL RECRUITER Hospital Encounter MAIN [address] [place] [address] Nghia Zhu MD Elsayem, Ahmed, MD Nausea and vomiting (Primary Dx); Gastric cancer; Pancreatitis Discharge Disposition: Left Against Medical Advice 04/12/2024 Travel 04/09/2024 8:25 PM HOSPITAL RECRUITER Ancillary Procedure Image Library [address] [place] [address] Margoth Souza MD Cancer 04/09/2024 8:20 PM HOSPITAL RECRUITER Ancillary Procedure Image [facility] [address] [place] [address] Margoth Souza MD Cancer 04/09/2024 8:15 PM HOSPITAL RECRUITER Ancillary Procedure Image Library [address] [place] [id number] Margoth Souza MD Cancer 04/09/2024 8:10 PM HOSPITAL RECRUITER Ancillary Procedure Image Library [address] [place], [place] [id number] Margoth Souza MD Cancer 04/09/2024 8:05 PM HOSPITAL RECRUITER Ancillary Procedure Image Library [address] [place] [address] Margoth Souza MD Cancer 04/09/2024 8:00 PM HOSPITAL RECRUITER Ancillary Procedure Image Library [address] [place] [address] Margoth Souza MD Cancer 04/09/2024 10:48 AM HOSPITAL RECRUITER - 04/09/2024 11:59 PM HOSPITAL RECRUITER Hospital Encounter [facility] [address] [place] [address] Ceci Nicholson MD Encounter for other preprocedural examination; Atherosclerosis of coronary 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, not otherwise specified; 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 Discharge Disposition: Home 04/09/2024 10:00 AM HOSPITAL RECRUITER POEM Appointments [facility] [address] [place] [address], 6th [place] [address] Margoth Souza MD 04/09/2024 9:56 AM HOSPITAL RECRUITER - 04/09/2024 10:47 AM HOSPITAL RECRUITER Hospital Encounter [facility] [address] [place] [address], 2nd [place] [address] Ceci Nicholson MD Adenocarcinoma of stomach; Hyperlipidemia, not otherwise specified; Encounter for other preprocedural examination; Atherosclerosis of coronary 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, not otherwise specified Discharge Disposition: Home 04/09/2024 9:00 AM HOSPITAL RECRUITER Consult Perioperative Evaluation and Management [address] [place] [address], [facility] [address] Mary Kay Santamaria APRN Misoi, Mercy W, MD Encounter for other preprocedural examination (Primary Dx); Adenocarcinoma of stomach; Paroxysmal atrial fibrillation; Hypertension; 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; Hyperlipidemia, not otherwise specified; Current use of 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; Atherosclerosis of coronary 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, not otherwise specified 04/09/2024 Travel 04/08/2024 Prep for Surgery [facility] [address] [place] [address], [address] [place] [address] [place] [address] Mary Kay Santamaria APRN Adenocarcinoma of stomach (Primary Dx); Mass of stomach 04/08/2024 Orders Only [facility] - [facility] On[facility] [address] [place] [address], [facility] [place] [address] Mary Kay Santamaria APRN Adenocarcinoma of stomach (Primary Dx); Paroxysmal atrial fibrillation; Hypertension; 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; Hyperlipidemia, not otherwise specified; Current use of 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 04/08/2024 Orders Only [facility] [address] [place] [address], 7th [facility] [place] [address] Gillian Gomez PA-C Adenocarcinoma, NOS of stomach, NOS (Primary Dx) 04/06/2024 Orders Only [facility] [address] [place] [address], 7th [place] [address] Roberto Poole PA 04/06/2024 Orders Only [facility] [address] [place] [address], 7th [place] [address] Roberto Poole PA Mass of stomach (Primary Dx) 04/06/2024 Orders Only [facility] [address] [place] [address], 7th [place] [address] Roberto Poole PA Mass of stomach (Primary Dx) 04/06/2024 Telephone [facility] [address] [place] [address], [facility] [place] [address] Anais Meng RN 02/11/2024 Travel 02/10/2024 3:30 PM CDT [facility]icine [facility] [address] [place] [address], [facility] [place] [address] Margoth Souza MD Renal mass (Primary Dx) 01/02/2024 7:15 AM CDT Ancillary Procedure MAIN OR [address] [place] [address] Margoth Souza MD 01/02/2024 7:00 AM CDT - 01/02/2024 11:40 AM CDT Surgery MAIN OR [address] [place] [address] Margoth Souza MD ROBOTIC ASSISTED PARTIAL NEPHRECTOMY 01/02/2024 6:58 AM CDT Anesthesia Event MAIN OR [address] [place] [address] Alonzo Liu MD Majekodumi, Jessy, PAXTON 01/02/2024 5:04 AM CDT - 01/03/2024 5:05 PM CDT Hospital Encounter MAIN P[address]B [address] [place] [address] Margoth Souza MD Renal mass (Primary Dx) Discharge Disposition: Home 01/02/2024 Travel 12/31/2023 1:04 PM CDT - 12/31/2023 11:59 PM CDT Hospital Encounter CT Imaging and Diagnostic Imaging [facility], 3rd [place] [address] Margoth Souza MD Renal mass Discharge Disposition: Home 12/31/2023 8:00 AM CDT Consult Endocrine Center [address] [place] [address], 6th [place] [address] Nakia Kirby APRN Khan, Sonya, MD Type 2 diabetes mellitus with hyperglycemia [E11.65] (Primary Dx); Pre-surgery evaluation 12/30/2023 9:30 AM CDT Office Visit [facility] [address] [place] [address], 7th [place] [address] Margoth Souza MD Renal mass 12/30/2023 Travel 12/30/2023 Telephone End[facility] Center [address] [place] [address], [facility] [place] [address] Winnie Archibald, RN Appointment (Cannot get internet-phone broke) 12/30/2023 Orders Only [facility] [address] [place] [address], 7th [place] [address] Roberto Poole PA Renal mass (Primary Dx) 12/29/2023 Orders Only End[facility] [address] [place] [address], 6th [place] [address] Veronica Del Castillo APRN 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); Endocrine/metabolic screening; Renal cell carcinoma <Left side> 12/25/2023 8:36 AM CDT Anesthesia Event [facility] [address] [place] [address], [facility] [place] [address] Lien Antonio, RN 12/23/2023 10:30 AM CDT Consult Perioperative Evaluation and Management [address] [place], [place] [address]ator [place] [address] Margoth Souza MD Oh, Jeong, MD Encounter for other preprocedural examination (Primary Dx); Renal mass; Hyperlipidemia, not otherwise specified 12/23/2023 9:00 AM CDT POEM Appointments [facility] [address] [place], [place] [address]ator [place] [address] Margoth Souza MD Pre-surgery evaluation (Primary Dx) 12/23/2023 8:45 AM CDT - 12/23/2023 11:59 PM CDT Hospital Encounter [facility] [address] [place] [address] Margoth Souza MD Renal mass Discharge Disposition: Home 12/23/2023 Travel 12/09/2023 9:33 AM CDT - 12/09/2023 11:59 PM CDT Hospital Encounter [facility] [address] [place] [place] [address] Veronica Del Castillo APRN 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; Endocrine/metabolic screening Discharge Disposition: Home 12/09/2023 8:30 AM CDT Consult Endocrine Center [address] [place] [address] Mary Jane Cassidy MD 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); Endocrine/metabolic screening; Renal cell carcinoma <Left side> 12/09/2023 Travel 10/23/2023 Orders Only [facility] [address] [facility], 7th [place] [address] Roberto Poole PA Renal mass (Primary Dx); Adrenal mass after 10/05/2023 Surgical History Surgery Date Site/Laterality Comments TOE AMPUTATION x2, 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, 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 APPENDECTOMY 05/20/1973 - 05/19/1974 Open WRIST SURGERY Left HAND SURGERY Right HIP ARTHRODESIS W/ ILIAC CRE ST BONE GRAFT Bilateral For hand surgeries CERVICAL SPINE SURGERY C3-6 fusion, x2 DC LAPAROSCOPY SURG PARTIAL NEPHRECTOMY 01/02/2024 Abdomen/Left Procedure: ROBOTIC ASSISTED PARTIAL NEPHRECTOMY; Surgeon: Margoth Souza MD; Location: MAIN OR; Service: UROLOGY DC ULTRASONIC GUIDANCE INTRAOPERATIVE 01/02/2024 Left Procedure: INTROPERATIVE ULTRASOUND - PERFORMED BY SURGEON; Surgeon: Margoth Souza MD; Location: MAIN OR; Service: UROLOGY CORONARY ARTERY BYPASS GRAFT 01/07/2024 DC LAPS ABD PRTM&OMENTUM DX W/WO SPEC BR/WA SPX 04/15/2024 Abdomen/N/A Procedure: ROBOTIC ASSISTED SURGICAL LAPAROSCOPY; Surgeon: John Fong MD; Location: MAIN OR; Service: SURG ONC - GASTRIC/HIPEC Medical devices from this surgery are in the Medical Devices section. DC FLUORO CENTRAL VENOUS ACC ESS DEV PLACEMENT 04/15/2024 Neck/N/A Procedure: FLUORO GUIDANCE FOR CENTRAL VENOUS ACCESS DEVICE PLACEMENT, REPLACEMENT, OR REMOVAL; Surgeon: John Fong MD; Location: MAIN OR; Service: SURG ONC - GASTRIC/HIPEC Medical devices from this surgery are in the Medical Devices section. DC US VASC ACCESS SITS VSL P ATENCY NDL ENTRY 04/15/2024 N/A Procedure: US GUIDANCE WITH EVAL OF POTENTIAL ACCESS SITES, REALTIME US VISUALIZATION OF VASC NEEDLE ENTRY; Surgeon: John Fong MD; Location: MAIN OR; Service: SURG ONC - GASTRIC/HIPEC Medical devices from this surgery are in the Medical Devices section. DC INSJ TUNNELED CTR VAD W/S UBQ PORT AGE 5 YR/> 04/15/2024 Neck/N/A Procedure: PORT-A-CATH PLACEMENT; Surgeon: John Fong MD; Location: MAIN OR; Service: SURG ONC - GASTRIC/HIPEC Medical devices from this surgery are in the Medical Devices section. DC ESOPHAGOGASTRODUODENOSCOP Y US SCOPE W/ADJ STRXRS 05/19/2024 Esophagus/N/A Procedure: UPPER GASTROINTESTINAL ENDOSCOPY OF ESOPHAGUS, STOMACH, OR DUODENUM ANDJ ADJACENT STRUCTURES, WITH ENDOSCOPIC ULTRASOUND EXAMINATION; Surgeon: Brandon Alcala MD; Location: MAIN ENDOSCOPY; Service: GASTROENTEROLOGY DC ESOPHAGOGASTRODUODENOSCOP Y TRANSORAL DIAGNOSTIC 06/30/2024 Esophagus/N/A Procedure: [...] note, pt was on [facility] Peripheral vascular disease 2023 Left LE s/p [...] on file Legal Sex Male 11:38 AM HOSPITAL RECRUITER Gender Identity Not on file Sexual Orientation Not on file Occupation Industry Job Start Date Job End Date retired from [employer] Not on file N ot on file Not on file Travel History Travel Start Travel End [place] 04/12/2024 04/12/2024 Obstetrics History Last Filed Vital [...] 188 cm (6' 2") 05/19/2024 11:53 AM HOSPITAL RECRUITER Body Mass Index 25.19 05/19/2024 11:53 AM HOSPITAL RECRUITER Plan of Treatment Upcoming Encounters Date Type Department Care Team (Late st Contact Info) Description 10/05/2024 11:45 AM CDT Appointment Diagnostic Laboratory Center [address] [place] [address] Marianela Hutchinson MD [address] [place] [phone] [email or web address] 10/05/2024 1:45 PM CDT Infusion Ambulatory Treatment [place] [facility] [address], 8th [place] [address] Marianela Hutchinson MD [address] [place] [phone] [email or web address] 10/07/2024 4:45 PM CDT Infusion Ambulatory Treatment [place] [facility] [address], 8th [place] [address] Marianela Hutchinson MD [address] [place] [phone] [email or web address] 10/26/2024 12:20 PM CDT Follow-Up [facility] [address] [place] [address], 7th [place] [address] Marianela Hutchinson MD [address] [place] [phone] [email or web address] 10/26/2024 1:15 PM CDT Infusion Ambulatory Treatment [place] [facility] [address], 8th [place] [address] Marianela Hutchinson MD [address] [place] [phone] [email or web address] 11/23/2024 7:30 AM CDT Appointment Diagnostic [facility] [address] [place] [address] Marianela Hutchinson MD [address] [place] [address] [email or web address] 02/01/2025 11:30 AM CDT Appointment Diagnostic [facility] [address] [place] [place] [address] Veronica Del Castillo, CREDIT COLLECTOR [address] [place] [address] [email or web address] 02/01/2025 11:[address] Imaging and Diagnostic Imaging [address] [place] [address], 3rd [place] [address] Veronica Del Castillo, CREDIT COLLECTOR [facility] [place] [address] [email or web address] 02/01/2025 3:00 PM CDT Follow-Up Endocrine Center [address] [place] [address], 6th [place] [address] Mary Jane Cassidy MD [address] [place] [phone] [email or web address] 02/05/2025 10:45 AM CDT Lab [facility] Cancer [facility] [address] [facility], 7th [place] [address] Margoth Souza MD [address] [place] [address] [email or web address] 02/05/2025 11:15 AM CDT Ancillary Procedure X-Ray Outpatient Center [address] [place] [address], [address] [place] [address] Margoth Souza MD [address] [place] [phone] [email or web address] 02/05/2025 11:55 AM CDT Ancillary Procedure CT Imaging [address] [place] [address], [address] [place] [address] Margoth Souza MD [address] [place] [phone] [email or web address] 02/08/2025 2:30 PM CDT Telemedicine [facility] [address] [place] [address], [address] [place] [address] Margoth Souza MD [address] [place] [phone] [email or web address] Health Maintenance Due Date Last Done Comments COVID-19 Vaccine (#1) 01/09/1969 Pneumococcal Vaccine: 50+ Years (1 of 2 - PCV) 983 01/09/1975 Influenza Vaccine (Season Ended) 2025 08/05/19 19 Medical Devices Implanted Type Area Cabin Outfitter Device Identifier Shelf Expiration Date Model / Serial / Lot Slade Muhammad 6fr - [id number] Implanted:Qty: 1 on 04/15/2024 by John Fong MD at [facility] Implant Right: Neck [employer] 12/17/2024 [id number] / / [id number] Procedures Procedure Name Priority Date/Time Associated Diagnosis [...] PELVIS W CONTRAST Routine 07/15/2024 4:38 PM HOSPITAL RECRUITER Adenocarcinoma of stomach .CBC Routine 07/15/2024 10:01 AM HOSPITAL RECRUITER Adenocarcinoma of stomach CARCINOEMBRYONIC ANTIGEN Routine 025 10:01 AM HOSPITAL RECRUITER Adenocarcinoma of stomach LACTATE DEHYDROGENASE Routine 07/15/2024 10:01 AM HOSPITAL RECRUITER Adenocarcinoma of stomach PHOSPHORUS LEVEL Routine 07/15/2024 10:01 AM HOSPITAL RECRUITER Adenocarcinoma of stomach MAGNESIUM LEVEL Routine 07/15/2024 10:01 AM HOSPITAL RECRUITER Adenocarcinoma of stomach COMPREHENSIVE METABOLIC PANEL Routine 10:01 AM HOSPITAL RECRUITER Adenocarcinoma of stomach COMPLETE BLOOD COUNT W/ DIFFERENTIAL Routine 07/15/2024 10:01 AM HOSPITAL RECRUITER Adenocarcinoma of stomach RESEARCH PROTOCOL [id number] Routine 07/15 10:01 AM HOSPITAL RECRUITER Adenocarcinoma of stomach MDA AP IHC WORKUP Routine 07/07/2024 12:29 PM HOSPITAL RECRUITER Adenocarcinoma of stomach POC GLUCOSE SCREEN Routine 06/30/2024 1:23 PM HOSPITAL RECRUITER PATHOLOGY BIOPSY INTERPRETATION Routine 06/30/2024 12:51 PM HOSPITAL RECRUITER Adenocarcinoma of stomach DC ESOPHAGOGASTRODUODENOSCOP Y TRANSORAL DIAGNOSTIC 06/30/2024 12:15 PM HOSPITAL RECRUITER Adenocarcinoma of stomach Case Notes 06/12 per gene to schedule on 06/30, per tor to schedule 06/30 thru lunch last AM case, slot held to offer. LVM and sent mychart to schedule-DC Special Needs FACILITY MANAGERARTURO PREEZ COMPLETE 06/18.FACILITY MANAGERARTURO PEREZ LVM FOR DAUGHTER WITH DETAILED INSTRUCTIONS FOR PROCEDURE IN ADDITION TO HOLD ON PLAVIX FOR 5 DAYS.FACILITY MANAGERARTURO TESFAYEM 1ST CALL 06/16. POC CHEM 8 Routine 06/30/2024 11:10 AM HOSPITAL RECRUITER POC GLUCOSE SCREEN Routine 06/30/2024 10:52 AM HOSPITAL RECRUITER POC CHEM 8 Routine 06/29/2024 9:54 AM HOSPITAL RECRUITER EKG, 12-LEAD (SCHEDULED) Routine 06/29/2024 Adenocarcinoma of stomach PETCT F18 FDG (FLUORODEOXYGLUCOSE) WITH CONTRAST Routine 06/20/2024 12:42 PM HOSPITAL RECRUITER Adenocarcinoma, NOS of stomach, NOS Malignant neoplasm of overlapping sites of esophagus POC GLUCOSE SCREEN Routine 06/20/2024 11:06 AM HOSPITAL RECRUITER .CBC Routine 06/20/2024 10:35 AM HOSPITAL RECRUITER Adenocarcinoma, NOS of stomach, NOS CARCINOEMBRYONIC ANTIGEN Routine 025 10:35 AM HOSPITAL RECRUITER Adenocarcinoma, NOS of stomach, NOS LACTATE DEHYDROGENASE Routine 06/20/2024 10:35 AM HOSPITAL RECRUITER Adenocarcinoma, NOS of stomach, NOS PHOSPHORUS LEVEL Routine 06/20/2024 10:35 AM HOSPITAL RECRUITER Adenocarcinoma, NOS of stomach, NOS MAGNESIUM LEVEL Routine 06/20/2024 10:35 AM HOSPITAL RECRUITER Adenocarcinoma, NOS of stomach, NOS COMPREHENSIVE METABOLIC PANEL Routine 10:35 AM HOSPITAL RECRUITER Adenocarcinoma, NOS of stomach, NOS COMPLETE BLOOD COUNT W/ DIFFERENTIAL Routine 06/20/2024 10:35 AM HOSPITAL RECRUITER Adenocarcinoma, NOS of stomach, NOS .CBC Routine 06/15/2024 10:39 AM HOSPITAL RECRUITER Adenocarcinoma of stomach CARCINOEMBRYONIC ANTIGEN Routine 025 10:39 AM HOSPITAL RECRUITER Adenocarcinoma, NOS of stomach, NOS LACTATE DEHYDROGENASE Routine 06/15/2024 10:39 AM HOSPITAL RECRUITER Adenocarcinoma, NOS of stomach, NOS PHOSPHORUS LEVEL Routine 06/15/2024 10:39 AM HOSPITAL RECRUITER Adenocarcinoma, NOS of stomach, NOS MAGNESIUM LEVEL Routine 06/15/2024 10:39 AM HOSPITAL RECRUITER Adenocarcinoma, NOS of stomach, NOS COMPREHENSIVE METABOLIC PANEL Routine 10:39 AM HOSPITAL RECRUITER Adenocarcinoma of stomach COMPLETE BLOOD COUNT W/ DIFFERENTIAL Routine 06/15/2024 10:39 AM HOSPITAL RECRUITER Adenocarcinoma of stomach .CBC Routine 06/01/2024 11:10 AM HOSPITAL RECRUITER Adenocarcinoma of stomach TRANSFERRIN Routine 06/01/2024 11:10 AM HOSPITAL RECRUITER Iron deficiency anemia, not otherwise specified Adenocarcinoma of stomach FERRITIN Routine 06/01/2024 11:10 AM HOSPITAL RECRUITER Iron deficiency anemia, not otherwise specified Adenocarcinoma of stomach IRON LEVEL Routine 06/01/2024 11:10 AM HOSPITAL RECRUITER Iron deficiency anemia, not otherwise specified Adenocarcinoma of stomach COMPREHENSIVE METABOLIC PANEL Routine 11:10 AM HOSPITAL RECRUITER Adenocarcinoma of stomach COMPLETE BLOOD COUNT W/ DIFFERENTIAL Routine 06/01/2024 11:10 AM HOSPITAL RECRUITER Adenocarcinoma of stomach POC GLUCOSE SCREEN Routine 05/19/2024 1:52 PM HOSPITAL RECRUITER PATHOLOGY BIOPSY INTERPRETATION Routine 05/19/2024 1:10 PM HOSPITAL RECRUITER Adenocarcinoma of stomach DC ESOPHAGOGASTRODUODENOSCOP Y US SCOPE W/ADJ STRXRS 05/19/2024 12:34 PM HOSPITAL RECRUITER Adenocarcinoma of stomach Case Notes 04/24- WAITING FOR TRIAGE TO ID FOR 05/01-BJ Special Needs FACILITY MANAGER [place] Call Completed 04/30/24ad laproscopy on 04/15/24 POC GLUCOSE SCREEN Routine 05/19/2024 12:21 PM HOSPITAL RECRUITER .CBC Routine 05/18/2024 10:55 AM HOSPITAL RECRUITER Adenocarcinoma, NOS of stomach, NOS CARCINOEMBRYONIC ANTIGEN Routine 024 10:55 AM HOSPITAL RECRUITER Adenocarcinoma, NOS of stomach, NOS LACTATE DEHYDROGENASE Routine 05/18/2024 10:55 AM HOSPITAL RECRUITER Adenocarcinoma, NOS of stomach, NOS PHOSPHORUS LEVEL Routine 05/18/2024 10:55 AM HOSPITAL RECRUITER Adenocarcinoma, NOS of stomach, NOS MAGNESIUM LEVEL Routine 05/18/2024 10:55 AM HOSPITAL RECRUITER Adenocarcinoma, NOS of stomach, NOS COMPREHENSIVE METABOLIC PANEL Routine 10:55 AM HOSPITAL RECRUITER Adenocarcinoma, NOS of stomach, NOS COMPLETE BLOOD COUNT W/ DIFFERENTIAL Routine 05/18/2024 10:55 AM HOSPITAL RECRUITER Adenocarcinoma, NOS of stomach, NOS .CBC Routine 05/04/2024 11:34 AM HOSPITAL RECRUITER Adenocarcinoma, NOS of stomach, NOS RESEARCH PROTOCOL [id number] Routine 05/04 11:34 AM HOSPITAL RECRUITER Adenocarcinoma of stomach CARCINOEMBRYONIC ANTIGEN Routine 024 11:34 AM HOSPITAL RECRUITER Adenocarcinoma, NOS of stomach, NOS LACTATE DEHYDROGENASE Routine 05/04/2024 11:34 AM HOSPITAL RECRUITER Adenocarcinoma, NOS of stomach, NOS PHOSPHORUS LEVEL Routine 05/04/2024 11:34 AM HOSPITAL RECRUITER Adenocarcinoma, NOS of stomach, NOS MAGNESIUM LEVEL Routine 05/04/2024 11:34 AM HOSPITAL RECRUITER Adenocarcinoma, NOS of stomach, NOS COMPREHENSIVE METABOLIC PANEL Routine 11:34 AM HOSPITAL RECRUITER Adenocarcinoma, NOS of stomach, NOS COMPLETE BLOOD COUNT W/ DIFFERENTIAL Routine 05/04/2024 11:34 AM HOSPITAL RECRUITER Adenocarcinoma, NOS of stomach, NOS VERIFY CATHETER TIP PLACEMENT Routine 3:50 PM HOSPITAL RECRUITER Adenocarcinoma of stomach POC GLUCOSE SCREEN Routine 04/15/2024 3:21 PM HOSPITAL RECRUITER XR CHEST 1 VW PORTABLE Routine 2:45 PM HOSPITAL RECRUITER POC GLUCOSE SCREEN Routine 04/15/2024 1:05 PM HOSPITAL RECRUITER POC GLUCOSE SCREEN Routine 04/15/2024 12:52 PM HOSPITAL RECRUITER CYTOLOGY NON-LEATHER COLORER INTERPRETATION Routine 04/15/2024 12:33 PM HOSPITAL RECRUITER Adenocarcinoma of stomach PATHOLOGY SURGICAL INTERPRETATION Routine 04/15/2024 12:13 PM HOSPITAL RECRUITER Adenocarcinoma of stomach FL CENTRAL VENOUS PLACE EXCHANGE Routine 04/15/2024 11:40 AM HOSPITAL RECRUITER Adenocarcinoma of stomach POC GLUCOSE SCREEN Routine 04/15/2024 9:22 AM HOSPITAL RECRUITER DC INSJ TUNNELED CTR VAD W/SUBQ PORT AGE 5 YR/> 04/15/2024 9:16 AM HOSPITAL RECRUITER Adenocarcinoma of stomach Special Needs MTL@0800 DC US VASC ACCESS SITS VSL PATENCY NDL ENTRY 04/15/2024 9:16 AM HOSPITAL RECRUITER Adenocarcinoma of stomach Special Needs MTL@0800 DC FLUORO CENTRAL VENOUS ACCESS DEV PLACEMENT 04/15/2024 9:16 AM HOSPITAL RECRUITER Adenocarcinoma of stomach Special Needs MTL@0800 DC LAPS ABD PRTM&OMENTUM DX W/WO SPEC BR/WA SPX 04/15/2024 9:16 AM HOSPITAL RECRUITER Adenocarcinoma of stomach Special Needs MTL@0800 CT ABDOMEN PELVIS W CONTRAST Routine 11:18 AM HOSPITAL RECRUITER .CBC Routine 04/12/2024 9:04 AM HOSPITAL RECRUITER LIPASE LEVEL Routine 04/12/2024 9:04 AM HOSPITAL RECRUITER AMYLASE LEVEL Routine 04/12/2024 9:04 AM HOSPITAL RECRUITER LACTATE DEHYDROGENASE Routine 04/12/2024 9:04 AM HOSPITAL RECRUITER FRACTIONATED BILIRUBIN Routine 9:04 AM HOSPITAL RECRUITER PHOSPHORUS LEVEL Routine 04/12/2024 9:04 AM HOSPITAL RECRUITER MAGNESIUM LEVEL Routine 04/12/2024 9:04 AM HOSPITAL RECRUITER COMPREHENSIVE METABOLIC PANEL Routine 9:04 AM HOSPITAL RECRUITER COMPLETE BLOOD COUNT W/ DIFFERENTIAL Routine 04/12/2024 9:04 AM HOSPITAL RECRUITER .CBC Routine 04/09/2024 11:09 AM HOSPITAL RECRUITER Encounter for other preprocedural examination Atherosclerosis of coronary 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, not otherwise specified THYROID STIMULATING HORMONE Routine 03/21 11:09 AM HOSPITAL RECRUITER Encounter for other preprocedural examination Atherosclerosis of coronary 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, not otherwise specified HEMOGLOBIN A1C Routine 04/09/2024 11:09 AM HOSPITAL RECRUITER 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 Encounter for other preprocedural examination COMPREHENSIVE METABOLIC PANEL Routine 11:09 AM HOSPITAL RECRUITER Encounter for other preprocedural examination Atherosclerosis of coronary 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, not otherwise specified COMPLETE BLOOD COUNT W/ DIFFERENTIAL Routine 04/09/2024 11:09 AM HOSPITAL RECRUITER Encounter for other preprocedural examination Atherosclerosis of coronary 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, not otherwise specified EKG, 12-LEAD (SCHEDULED) Routine 04/09/2024 Adenocarcinoma of stomach Hyperlipidemia, not otherwise specified Encounter for other preprocedural examination Atherosclerosis of coronary 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, not otherwise specified PATHOLOGY OUTSIDE INTERPRETATION Routine 04/02/[address] ABDOMEN AND PELVIS Routine 2023 8:21 AM HOSPITAL RECRUITER Cancer OSI CHEST Routine 03/23/2024 7:37 PM HOSPITAL RECRUITER Cancer OSI CT CHEST ABDOMEN PELVIS Routine 08/2023 7:37 PM HOSPITAL RECRUITER Cancer OSI CHEST Routine 03/23/2024 7:37 PM HOSPITAL RECRUITER Cancer OSI CT CHEST Routine 03/22/2024 8:21 AM HOSPITAL RECRUITER Cancer OSI CT ABDOMEN AND PELVIS Routine [...] INTRAOPERATIVE US STAT 01/02/2024 7:13 AM CDT DC ULTRASONIC GUIDANCE INTRAOPERATIVE 01/02/2024 6:08 AM CDT Renal mass Special Needs [email or web address]Please collect and send tissue to pathology window with appropriate label. DC LAPAROSCOPY SURG PARTIAL NEPHRECTOMY 01/02/2024 6:08 AM CDT Renal mass Special Needs [email or web address]:Please collect and send tissue to pathology window [...] of left adrenal gland Endocrine/metabo lic screening after 10/05/2023 Results * (ABNORMAL) .CBC (09/21/2024 12:58 PM CDT) Only the most recent of13 resultswithin the time period is included. White Blood Cell 6.1 4.1 - 10.5 K/uL 09/21/2024 1:29 PM CDT [facility] Red Blood Cell 4.06(L) 4.30 - 6.04 M/uL 09/21/2024 1:29 PM CDT [facility] Hemoglobin 10.5(L) 13.3 - 17.4 g/dL 09/21/2024 1:29 PM CDT [facility] Hematocrit 33.3(L) 39.5 - 51.8 % 09/21/2024 1:29 PM CDT [facility] Mean Cell Volume 82 82 - 99 fL 09/21/2024 1:29 PM T [facility] Mean Cell Hemoglobin 25.9(L) 26.6 - 33.2 pg 09/21/2024 1:29 PM CDT [facility] Mean Cell Hemoglobin Concentration 31.5 31.1 - 35.2 g/dL 09/21/2024 1:29 PM T [facility] RDW-SD 45.9 37.5 - 49.7 fL 09/21/2024 1:29 PM T [facility] Red Cell Diameter Width 15.4 11.6 - 15.5 % 09/21/2024 1:29 PM T [facility] Platelet 152(L) 160 - 397 K/uL 09/21/2024 1:29 PM CDT [facility] Mean Platelet Volume 9.8 9.1 - 12.6 fL 09/21/2024 1:29 PM T [facility] INRBC 0.0 0.0 - 0.1 /100 WBC 09/21/2024 1:29 PM [facility] Comment: The INRBC (instrument NRBC) value reflects the enumeration of nucleated red blood cells contained in a 200uL sample of whole blood analyzed by the instrument. This value may differ from the NRBC value reported in a manual differential, which is based on a 100 cell differential. Neutrophil % 65.1 43.2 - 72.7 % 09/21/2024 1:29 PM CDT [facility] Lymphocyte % 22.1 16.8 - 46.2 % 09/21/2024 1:29 PM CDT [facility] Monocyte % 9.7 5.1 - 12.5 % 09/21/2024 1:29 PM T [facility] Eosinophil % 2.1 0.4 - 6.3 % 09/21/2024 1:29 PM CDT [facility] Basophil % 0.5 0.2 - 1.4 % 09/21/2024 1:29 PM CDT [facility] IGRE % 0.5 0.1 - 1.5 % 09/21/2024 1:29 PM CDT [facility] Comment:The IGRE% includes M etamyelocytes, Myelocytes and Promyelocytes. Neutrophil Abs 3.97 1.95 - 7.25 K/uL 09/21/2024 1:29 PM CDT [facility] Lymphocyte Abs 1.35 1.01 - 3.24 K/uL 09/21/2024 1:29 PM CDT [facility] Monocyte Abs 0.59 0.24 - 0.85 K/uL 09/21/2024 1:29 PM CDT [facility] Eosinophil Abs 0.13 0.02 - 0.50 K/uL 09/21/2024 1:29 PM CDT [facility] Basophil Abs 0.03 0.02 - 0.09 K/uL 09/21/2024 1:29 PM CDT [facility] IG Abs 0.03 0.01 - 0.12 K/uL 09/21/2024 1:29 PM CDT [facility] Blood Peripheral blood specimen / Unknown Venipuncture / Unknown 09/21/2024 12:58 PM CDT 09/21/2024 1:01 PM CDT us Marianela Hutchinson MD LAB BLOOD ORDERABLES Final Re sult [facility] Unless otherwise noted, all lab tests performed by: Division of Pathology and Laboratory Medicine [address] [place] [phone] * (ABNORMAL) Comprehensive Metabolic Panel (09/21/2024 12:58 PM CDT) Only the most recent of12 resultswithin the time period is included. Bilirubin Total 0.3 0.0 - 1.2 mg/dL 09/21/2024 2:04 PM CDT [facility] Comment:Indocyanine Green (I CG) may cause falsely elevated bilirubin results. Total and direct bilirubin must not be measured from samples containing indocyanine green. False elevation of total bilirubin can be seen in patients with IgG concentrations above 28 g/L. eGFR 103 >=60 mL/min/1. 73 sq. m 09/21/2024 2:04 PM CDT [facility] Comment: The eGFRcr is [...] - 8.3 gm/dL 09/21/2024 2:04 PM CDT [facility] Calcium Level Total 8.5 8.2 - 10.2 mg/dL 09/21/2024 2:04 PM CDT [facility] Alkaline Phosphatase 121 40 - 129 U/L 09/21/2024 2:04 PM CDT [facility] Albumin Level 3.4(L) 3.5 - 5.2 gm/dL 09/21/2024 2:04 PM CDT [facility] AST 27 <=40 U/L 09/21/2024 2:04 PM CDT [facility] ALT 12 <=41 U/L 09/21/2024 2:04 PM CDT [facility] Sodium Level 142 136 - 145 mmol/L 09/21/2024 2:04 PM CDT [facility] Potassium Level 3.7 3.4 - 4.5 mmol/L 09/21/2024 2:04 PM CDT [facility] Chloride 104 98 - 107 mmol/L 09/21/2024 2:04 PM CDT [facility] CO2 27 22 - 29 mmol/L 09/21/2024 2:04 PM CDT [facility] Anion Gap 11 4 - 14 mmol/L 09/21/2024 2:04 PM CDT [facility] Creatinine 0.75 0.67 - 1.17 mg/dL 09/21/2024 2:04 PM CDT [facility] BUN <4(L) 6 - 23 mg/dL 09/21/2024 2:04 PM CDT [facility] Glucose Level 121(H) 70 - 99 mg/dL 09/21/2024 2:04 PM CDT [facility] Comment: Effective 12/14/15, the glucose reference intervals have been updated based on [place] [employer] guidelines (Standards of Medical Care [...] by: Division of Pathology and Laboratory Medicine [address] [place] [phone] * (ABNORMAL) Phosphorus Level (09/07/2024 10:49 AM CDT) Only the most recent of8 resultswithin the time period is included. Phosphorus Level 2.4(L) 2.5 - 4.5 mg/dL 09/07/2024 11:49 AM CDT [facility] Blood Peripheral blood specimen / Unknown Port / Unknown 09/07/2024 10:49 AM CDT 09/07/2024 10:50 AM CDT Gillian Gomez PA-C LAB BLOOD ORDERABLES Final Result Performing Organization Address City/[facility] Co de Phone Number [facility] Unless otherwise noted, all lab tests performed by: Division of Pathology and Laboratory Medicine [address] [place] [phone] * Magnesium Level (09/07/2024 10:49 AM CDT) Only the most recent of8 resultswithin the time period is included. Magnesium Level 1.8 1.6 - 2.6 mg/dL 09/07/2024 11:49 AM CDT [facility] Blood Peripheral blood specimen / Unknown Port / Unknown 09/07/2024 10:49 AM CDT 09/07/2024 10:50 AM CDT Gillian Gomez PA-C LAB BLOOD ORDERABLES Final Result Performing Organization Address [facility] de Phone Number [facility] Unless otherwise noted, all lab tests performed by: Division of Pathology and Laboratory Medicine [address] [place] [phone] * LDH (09/07/2024 10:49 AM CDT) Only the most recent of8 resultswithin the time period is included. LDH 148 135 - 225 U/L 09/07/2024 11:49 AM CDT [facility] Blood Peripheral blood specimen / Unknown Port / Unknown 09/07/2024 10:49 AM CDT 09/07/2024 10:50 AM CDT Narrative [facility] - 09/07/2024 11:49 AM CDT Results greater than 1651 U/L may not be reliable due to matrix effect with extended dilution as it exceeds the people greeter's recommended limit. Caution should be exercised when interpreting such values and done in conjunction with clinical context. Gillian Gomez PA-C LAB BLOOD ORDERABLES Final Result Performing Organization Address City/[facility] Co de Phone Number [facility] Unless otherwise noted, all lab tests performed by: Division of Pathology and Laboratory Medicine [address] [place] [phone] * CEA (09/07/2024 10:49 AM CDT) Only the most recent of7 resultswithin the time period is included. Carcinoembryonic Antigen 1.9 <=3.8 ng/mL 09/07/2024 12:08 PM CDT [facility] Blood Peripheral blood specimen / Unknown Port / Unknown 09/07/2024 10:49 AM CDT 09/07/2024 10:50 AM CDT Narrative [facility] - 09/07/2024 12:08 PM CDT Reference Ranges (age 20-69 years): Non-smoker: <= 3.8 ng/mL Smoker: <= 5.5 ng/mL This test is measured by electrochemiluminescence immunoassay on [employer] Nikki immunoassay analyzers. Results obtained in different methods are not interchangeable. Gillian Gomez PA-C LAB BLOOD ORDERABLES Final Result [facility] Unless otherwise noted, all lab tests performed by: Division of Pathology and Laboratory Medicine [address] [place] [phone] * CT Chest Abdomen Pelvis with Contrast (07/15/2024 4:38 PM HOSPITAL RECRUITER) Anatomical Region Laterality Modality Abdomen, Pelvis, Chest Computed Tomography 07/15/2024 5:39 PM HOSPITAL RECRUITER Impressions 07/15/2024 9:45 PM HOSPITAL RECRUITER 1. Redemonstration of diffuse wall thickening of [...] and potentially actionable. Narrative 07/15/2024 9:45 PM HOSPITAL RECRUITER FULL RESULT: Examination: CT CHEST ABDOMEN PELVIS [...] unexpected and potentially actionable. Mary Kay Santamaria CREDIT COLLECTOR IMG CT ORDERABLES Final Result * Research Protocol [id number] (07/15/2024 10:01 AM HOSPITAL RECRUITER) Only the most recent of2 resultswithin the time period is included. Research Protocol Specimen Specimen Collected, Ready for Pickup. 07/15/2024 12:00 PM HOSPITAL RECRUITER [facility] Blood Venipuncture / Unknown 07/15/2024 10:01 AM HOSPITAL RECRUITER 07/15/2024 10:10 AM HOSPITAL RECRUITER Marianela Hutchinson MD RESEARCH LAB Z CODES Final Re sult [facility] Unless otherwise noted, all lab tests performed by: Division of Pathology and Laboratory Medicine [address] [place] [address] [place] [address] * IHC Workup (07/07/2024 12:29 PM HOSPITAL RECRUITER) Tissue 07/07/2024 12:2 9 PM HOSPITAL RECRUITER 07/07/2024 12:29 PM HOSPITAL RECRUITER Gillian Gomez PA-C, MDA AP BIOMARKER ORDERABLE S Final Result Performing Organization Address [facility] Co de Phone Number [facility] [place] [phone], * (ABNORMAL) POC Glucose Screen - Fingerstick (06/30/2024 1:23 PM HOSPITAL RECRUITER) Only the most recent of23 resultswithin the time period is included. Pathologist [facility] Glucose Screen 168(H) 70 - 99 mg/dL 06/30/2024 1:25 PM HOSPITAL RECRUITER [facility] POC Sample Type Capillary 06/30/2024 1:25 PM HOSPITAL RECRUITER [facility] Blood 06/30/2024 1:23 PM HOSPITAL RECRUITER 06/30/2024 1:25 PM HOSPITAL RECRUITER Narrative [facility] - 06/30/2024 1:25 PM HOSPITAL RECRUITER Capillary blood samples, e.g. obtained by fingerstick, [...] DE VICE Final Result Performing Organization Address City/[facility] Co de Phone Number [facility] Unless otherwise noted, all lab tests performed by: Division of Pathology and Laboratory Medicine [address] [place] [phone] * Pathology Biopsy Interpretation (06/30/2024 12:51 PM HOSPITAL RECRUITER) Only the most recent of2 resultswithin the time period is included. Addendum 1 By immunohistochemistry, approximately 10% of the tumor cells show weakly to moderately cytoplasmic staining for claudin 18. By immunohistochemistry the combined positive score (CPS) for PD-L1 is <1. 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 07/10/2024 8:47 AM [facility] at 1826 HOSPITAL RECRUITER Gross Description A: Esophagus, lower esophageal ulcer at 37cm: Multiple soft light castillo tissue fragments, 0.7 x 0.6 x 0.1 cm in aggregate, entirely submitted in A1. ET 07/10/2024 8:47 AM [facility] Biomarker Block(s) Block for biomarker testing: A1 07/10/2024 8:47 AM [facility] Disclaimer "Some tests reported here may have been developed and performance characteristics determined by [facility] Pathology and Laboratory Medicine. These tests have not been specifically cleared or approved by the U.S. Food and Drug Administration. If applicable, controls were reviewed and showed appropriate reactivity." 07/10/2024 8:47 AM [facility] Tissue (Esophagus) 06/30/2024 12:51 PM HOSPITAL RECRUITER 06/30/2024 2:51 PM HOSPITAL RECRUITER us Brandon Galo MD LAB PATHOLOGY ORDERA BLES Edited Result - Final [id number] [place] [address], [place] * (ABNORMAL) POC Chem 8 (06/30/2024 11:10 AM HOSPITAL RECRUITER) Only the most recent of2 resultswithin the time period is included. POC Sodium 136(L) 138 - 146 mmol/L 06/30/2024 11:13 AM [facility] POC Potassium 4.5 3.5 - 4.9 mmol/L 06/30/2024 11:13 AM [facility] POC Chloride 100 98 - 109 mmol/L 06/30/2024 11:13 AM [facility] POC VTCO2 27 24 - 29 mmol/L 06/30/2024 11:13 AM [facility] POC Anion Gap 14 10 - 20 mmol/L 06/30/2024 11:13 AM [facility] POC BUN 30(H) 8 - 26 mg/dL 06/30/2024 11:13 AM [facility] POC Creatinine 1.1 0.6 - 1.3 mg/dL 06/30/2024 11:13 AM [facility] Comment:Medications, especia lly hydroxyurea or supplements, such as ascorbate, can interfere with test results causing a falsely and significantly higher result than expected. If a problem is suspected with a patient's result, a sample should be sent to the laboratory for confirmatory testing. POC I Glu 182(H) 70 - 99 mg/dL 06/30/2024 11:13 AM [facility] Comment:Medications, especia lly hydroxyurea or supplements, such as ascorbate, can interfere with test results causing a falsely and significantly higher result than expected. If a problem is suspected with a patient's result, a sample should be sent to the laboratory for confirmatory testing. POC Ionized Calcium 1.26 1.12 - 1.32 mmol/L 06/30/2024 11:13 AM [facility] POC Hct 39.0 38.0 - 51.0 % 06/30/2024 11:13 AM [facility] POC Hgb 13.3 12.0 - 17.0 gm/dL 06/30/2024 11:13 AM [facility] Comment:Hematocrit values fr om the iSTAT are [...] standard. POC Sample Type Venous 11:13 AM [facility] POC eGFR 77 >=60 mL/min/1.7 3 sq. m 06/30/2024 11:13 AM [facility] Comment: The eGFRcr is calculated with the [...] for CKD. Blood 06/30/2024 11:1 0 AM HOSPITAL RECRUITER 06/30/2024 11:13 AM HOSPITAL RECRUITER Narrative [facility] - 06/30/2024 11:13 AM HOSPITAL RECRUITER Method description: The i-STAT is an analyzer [...] by: Division of Pathology and Laboratory Medicine [address] [place] [phone] * EKG, 12-Lead (Scheduled) (06/29/2024) Only the most recent of2 resultswithin the time period is included. Mary Kay Neva Santamaria CREDIT COLLECTOR ECG ORDERABLES Final R esult [facility] IECG * PETCT F18 FDG (Fluorodeoxyglucose) with contrast (06/20/2024 12:42 PM HOSPITAL RECRUITER) Anatomical Region Laterality Modality Whole Body Positron Emissio n Tomography (PET) 06/20/2024 3:10 PM HOSPITAL RECRUITER Impressions 06/20/2024 4:38 PM HOSPITAL RECRUITER Biopsy-proven malignancy in the region of the [...] and potentially actionable. Narrative 06/20/2024 4:38 PM HOSPITAL RECRUITER FULL RESULT: Examination: 18F-FDG-PET/CT with contrast, 06/20/2024 [...] unexpected and potentially actionable. Gillian Gomez PA-C [facility] PETCT ORDERABLES Final Result * Transferrin with TIBC (06/01/2024 11:10 AM HOSPITAL RECRUITER) Transferrin 211 200 - 360 mg/dL 06/01/2024 12:15 PM HOSPITAL RECRUITER [facility] Total Iron Binding Capacity 295 250 - 450 mcg/dL 06/01/2024 12:15 PM HOSPITAL RECRUITER [facility] Blood Peripheral blood specimen / Unknown Venipuncture / Unknown 06/01/2024 11:10 AM HOSPITAL RECRUITER 06/01/2024 11:23 AM HOSPITAL RECRUITER us Marianela Hutchinson MD LAB BLOOD ORDERABLES Final Re sult [facility] Unless otherwise noted, all lab tests performed by: Division of Pathology and Laboratory Medicine [address] [place] [phone] * (ABNORMAL) Iron Level (06/01/2024 11:10 AM HOSPITAL RECRUITER) Iron Level 38(L) 59 - 158 mcg/dL 06/01/2024 12:15 PM HOSPITAL RECRUITER [facility] Is patient fasting? No 06/01/2024 12:15 PM HOSPITAL RECRUITER [facility] Blood Peripheral blood specimen / Unknown Venipuncture / Unknown 06/01/2024 11:10 AM HOSPITAL RECRUITER 06/01/2024 11:23 AM HOSPITAL RECRUITER us Marianela Hutchinson MD LAB BLOOD ORDERABLES Final Re sult Performing Organization Address [facility] Co de Phone Number [facility] Unless otherwise noted, all lab tests performed by: Division of Pathology and Laboratory Medicine [address] [place] [phone] [facility] Unless otherwise noted, all lab tests performed by: Division of Pathology and Laboratory Medicine [address] [place] [phone] * Ferritin Level (06/01/2024 11:10 AM HOSPITAL RECRUITER) Ferritin Level 59 30 - 400 ng/mL 06/01/2024 12:15 PM HOSPITAL RECRUITER [facility] Blood Peripheral blood specimen / Unknown Venipuncture / Unknown 06/01/2024 11:10 AM HOSPITAL RECRUITER 06/01/2024 11:23 AM HOSPITAL RECRUITER Narrative [facility] - 06/01/2024 12:15 PM HOSPITAL RECRUITER Reference range established for age 20 - 60 years us Marianela Hutchinson MD LAB BLOOD ORDERABLES Final Re sult [facility] Unless otherwise noted, all lab tests performed by: Division of Pathology and Laboratory Medicine [address] [place] [phone] * Tip Verification Central Vascular Access Device (04/15/2024 3:50 PM HOSPITAL RECRUITER) Narrative John Fong MD - 04/15/2024 3:50 PM HOSPITAL RECRUITER John Fong MD 04/15/2024 3:50 PM Central Vascular Access Device Tip Verification Performed by: John Fong MD Authorized by: John Fong MD [employer] Properties Date device placed: 04/15/2024 Device placement location: [facility] Catheter Type: Implanted venous port Catheter lumen: Single lumen Vein location: Internal jugular vein Laterality: Right Tip in good position and cleared for infusion us John Fong MD IV THERAPY ORDERABLES Final Re sult * XR Chest 1 View Portable (04/15/2024 2:45 PM HOSPITAL RECRUITER) Anatomical Region Laterality Modality Chest Digital Radiogra phy 04/15/2024 2:50 PM HOSPITAL RECRUITER Impressions 04/15/2024 2:53 PM HOSPITAL RECRUITER 1. Right infusion port catheter terminates over [...] and potentially actionable. Narrative 04/15/2024 2:53 PM HOSPITAL RECRUITER FULL RESULT: Examination: XR CHEST 1 VW [...] unexpected and potentially actionable. John Fong MD [facility] DIAGNOSTIC IMAGING ORDERAB LES Final Result * Cytology Non-Atmospheric Physics Professor Interpretation (04/15/2024 12:33 PM HOSPITAL RECRUITER) Gross Description 4 Pap Stain Slides 750 ml. clear yellow fluid Specimen concentrated by cytocentrifugation technique 4 4:07 PM HOSPITAL RECRUITER [facility] Major Classification [facility]/benign 4 4:07 PM HOSPITAL RECRUITER [facility] at 1607 HOSPITAL RECRUITER Diagnosis Peritoneal washing: No metastatic carcinoma identified Reactive mesothelial cells and histiocytes 4 4:07 PM HOSPITAL RECRUITER [facility] at 1607 HOSPITAL RECRUITER Retained/Biomark er Testing SR:4S 4:07 PM HOSPITAL RECRUITER [facility] Informational Points Some tests reported here may have been developed and performance characteristics determined by [facility] Pathology and Laboratory Medicine. These tests have not been specifically cleared or approved by the U.S. Food and Drug Administration. 4:07 PM HOSPITAL RECRUITER [facility] Washing (Peritoneal Washing) 04/15/2024 12:33 PM HOSPITAL RECRUITER 04/15/2024 1:10 PM HOSPITAL RECRUITER us John Fong MD LAB CYTOLOGY ORDERABLES Final Result [facility] [id number] [place] [address], [place] * Pathology Surgical Interpretation (04/15/2024 12:13 PM HOSPITAL RECRUITER) Only the most recent of2 resultswithin the time period is included. Submitted Clinical History Adenocarcinoma of stomach [C16.9] 04/20/2024 8:13 PM HOSPITAL RECRUITER [facility] Diagnosis A. Falciform ligament, resection: Fibroadipose tissue, no tumor present 04/20/2024 8:13 PM [facility] at 2013 HOSPITAL RECRUITER Gross Description A: Falciform ligament, falciorm ligament biopsy....or 16: Consists of a fragment of castillo-yellow, lobulated fat (0.8 x 0.6 x 0.5 cm) entirely submitted in cassette A1. EF 04/20/2024 8:13 PM [facility] Disclaimer "Some tests reported here may have been developed and performance characteristics determined by [facility] Pathology and Laboratory Medicine. These tests have not been specifically cleared or approved by the U.S. Food and Drug Administration. If applicable, controls were reviewed and showed appropriate reactivity." 04/20/2024 8:13 PM [facility] Tissue (Falciform Ligament) 04/15/2024 12:13 PM HOSPITAL RECRUITER 04/15/2024 1:18 PM HOSPITAL RECRUITER John Fong MD LAB PATHOLOGY ORDERABLES Final Result [facility] [place] [address] [place] [address], [place] * [place] [facility] Exchange (04/15/2024 11:40 AM HOSPITAL RECRUITER) Narrative Systemgenerated, Documentation - 04/15/2024 11:40 AM HOSPITAL RECRUITER This procedure requires no interpretation from the radiologist. John Fong MD IMG FLUOROSCOPY ORDERABLES Fin al Result * CT Abdomen Pelvis with IV Contrast (04/12/2024 11:18 AM HOSPITAL RECRUITER) Anatomical Region Laterality Modality Abdomen, Pelvis Computed Tomogra phy 04/12/2024 11:5 2 AM HOSPITAL RECRUITER Impressions 04/12/2024 12:11 PM HOSPITAL RECRUITER Wall thickening and slight mucosal irregularity of [...] and potentially actionable. Narrative 04/12/2024 12:11 PM HOSPITAL RECRUITER FULL RESULT: Examination: CT ABDOMEN PELVIS W [...] Result * Fractionated Bilirubin (04/12/2024 9:[address] [facility]) Bilirubin Direct 04/12/20 9:47 AM [facility] Comment: Direct and indirect bilirubin will not be reported when Total bilirubin result is <0.3 mg/dL Indocyanine Green (ICG) may cause falsely elevated bilirubin results. Total and direct bilirubin must not be measured from samples containing indocyanine green. Bilirubin Indirect 2023 9:47 AM [facility] Comment:Direct and indirect bilirubin will not be reported when Total bilirubin result is <0.3 mg/dL Bilirubin Total <0.3 0.0 - 1.2 mg/dL 04/12/2024 9:47 AM [facility] Comment: Direct and indirect bilirubin will not [...] Unknown Venipuncture / Unknown 04/12/2024 9:04 AM HOSPITAL RECRUITER 04/12/2024 9:08 AM HOSPITAL RECRUITER us Nghia Zhu MD LAB BLOOD ORDERABLES Final Resu lt [facility] Unless otherwise noted, all lab tests performed by: Division of Pathology and Laboratory Medicine [address] [place] [phone] * (ABNORMAL) Lipase (04/12/2024 9:04 AM HOSPITAL RECRUITER) Lipase Level 311(H) 13 - 60 U/L 04/12/2024 10:09 AM HOSPITAL RECRUITER [facility] Blood Peripheral blood specimen / Unknown Venipuncture / Unknown 04/12/2024 9:04 AM HOSPITAL RECRUITER 04/12/2024 9:08 AM HOSPITAL RECRUITER Narrative [facility] - 04/12/2024 10:09 AM HOSPITAL RECRUITER Reference range established based on adult population us Nghia Zhu MD LAB BLOOD ORDERABLES Final Resu lt Performing Organization Address City/[facility]/ZIP Co de Phone Number [facility] Unless otherwise noted, all lab tests performed by: Division of Pathology and Laboratory Medicine [address] [place] [phone] * (ABNORMAL) Amylase (04/12/2024 9:04 AM HOSPITAL RECRUITER) Amylase Level 171(H) 28 - 100 U/L 04/12/2024 9:47 AM HOSPITAL RECRUITER [facility] Blood Peripheral blood specimen / Unknown Venipuncture / Unknown 04/12/2024 9:04 AM HOSPITAL RECRUITER 04/12/2024 9:08 AM HOSPITAL RECRUITER us Nghia Zhu MD LAB BLOOD ORDERABLES Final Resu lt [facility] Unless otherwise noted, all lab tests performed by: Division of Pathology and Laboratory Medicine [address] [place] [address] * TSH (04/09/2024 11:09 AM HOSPITAL RECRUITER) Thyroid Stimulating Hormone 1.53 0.27 - 4.20 mcunit/mL 04/09/2024 12:23 PM HOSPITAL RECRUITER [facility] Blood Peripheral blood specimen / Unknown Venipuncture / Unknown 04/09/2024 11:09 AM HOSPITAL RECRUITER 04/09/2024 11:19 AM HOSPITAL RECRUITER Ceci Nicholson MD LAB BLOOD ORDERABLES Final Resu lt Performing Organization Address City/[facility] Co de Phone Number [facility] Unless otherwise noted, all lab tests performed by: Division of Pathology and Laboratory Medicine [address] [place] [phone] * (ABNORMAL) Hemoglobin A1c (04/09/2024 11:09 AM HOSPITAL RECRUITER) Only the most recent of2 resultswithin the time period is included. Pathologist [facility] Hemoglobin A1c 7.0(H) 4.3 - 5.6 % 04/09/2024 12:14 PM HOSPITAL RECRUITER [facility] Blood Peripheral blood specimen / Unknown Venipuncture / Unknown 04/09/2024 11:09 AM HOSPITAL RECRUITER 04/09/2024 11:19 AM HOSPITAL RECRUITER Narrative [facility] - 04/09/2024 12:14 PM HOSPITAL RECRUITER HbA1c values >=6.5% are diagnostic of diabetes mellitus. Diagnosis should be confirmed by repeat testing. Therapeutic Action suggested: >8.0% HbA1c; Goal of therapy: <7.0% HbA1c Ceci Nicholson MD LAB BLOOD ORDERABLES Final Resu lt Performing Organization Address City/[facility]/ZIP Co de Phone Number [facility] Unless otherwise noted, all lab tests performed by: Division of Pathology and Laboratory Medicine [address] [place] [phone] * Pathology Outside Interpretation (04/02/2024) Pathologist [facility] Materials Received Accession#, Stained, Block, Unstained Collected Received A. [id number], 20 SS, 0 BLOCKS, 0 USS 04/02/2024 04/22/2024 04/22/2024 5:36 PM HOSPITAL RECRUITER [facility] Diagnosis Outside ([id number], 20 SS, 0 BLOCKS, 0 USS, collected [...] FEATURES. See comment. FY/FMK 04/22/2024 5:[address] [facility] [employer] LABS at 1736 HOSPITAL RECRUITER Comment Part A. There is no evidence of malignancy on H&E and immunohistochemical stain for Cytokeratin AE1/AE3. Of note, the biopsy may not be benefits representative of the entire lesion. Please correlate [...] immunohistochemistry: Negative (Score: 0) 04/22/2024 5:36 PM [employer] Block(s) Block for biomarker testing: C1 Normal block: N/A 04/22/2024 5:[address] [facility] [employer] Disclaimer "Some tests reported here may have been developed and performance characteristics determined by [facility] Pathology and Laboratory Medicine. These tests have not been specifically cleared or approved by the U.S. Food and Drug Administration. If applicable, controls were reviewed and showed appropriate reactivity." 04/22/2024 5:36 PM [employer] Tissue 04/02/2024 04/22/2024 6:[address] [facility] Sybil Edmonds MD LAB PATHOLOGY ORDERABLES Final R esult [facility] [place] [address] [place] [address], [place] * OSI CT Abdomen and Pelvis (04/01/2024 8:21 AM HOSPITAL RECRUITER) Only the most recent of2 resultswithin the time period is included. Narrative Systemgenerated, Documentation - 04/27/2024 8:22 AM HOSPITAL RECRUITER Study acquired at another institution. For comparison only. No MD Pernell originated interpretation requested or available. [facility] Regan Zhu DO IMG OUTSIDE IMAGE ORDERAB LES Final Result * OSI CT CHEST ABDOMEN PELVIS (03/23/2024 7:37 PM HOSPITAL RECRUITER) Narrative Systemgenerated, Documentation - 04/09/2024 7:37 PM HOSPITAL RECRUITER Study acquired at another institution. For comparison only. No MD iGmenez originated interpretation requested or available. Margoth Souza MD IMG OUTSIDE IMAGE ORDERABLES Fin al Result * OSI Chest (03/23/2024 7:37 PM HOSPITAL RECRUITER) Only the most recent of4 resultswithin the time period is included. Narrative Systemgenerated, Documentation - 04/09/2024 7:37 PM HOSPITAL RECRUITER Study acquired at another institution. For comparison only. No MD Gimenez originated interpretation requested or available. Margoth Souza MD IMG OUTSIDE IMAGE ORDERABLES Fin al Result * OSI CT Chest (03/22/2024 8:21 AM HOSPITAL RECRUITER) Narrative Systemgenerated, Documentation - 04/27/2024 8:21 AM HOSPITAL RECRUITER Study acquired at another institution. For comparison only. No MD Gimenez originated interpretation requested or available. [facility] Regan Zhu DO IMG OUTSIDE IMAGE ORDERAB LES Final Result * (ABNORMAL) Basic Metabolic Panel- Total Calcium (01/03/2024 2:59 PM CDT) Only the most recent of7 resultswithin the time period is included. eGFR 71 >=60 mL/min/1. 73 sq. m 01/03/2024 3:44 PM CDT [facility] Comment: The eGFRcr is [...] reference intervals have been updated based on [place] [employer] guidelines (Standards of Medical Care [...] by: Division of Pathology and Laboratory Medicine [address] [place] [address] * Zinc Transporter 8 Ab (01/03/2024 4:22 AM CDT) Pathologist [facility] Zinc T8 AB <15.0 <15.0 U/mL 01/15/2024 11:18 AM CDT [facility] TIFF Comment: ADDITIONAL INFORMATION This test has been modified from the people greeter's instructions. Its performance characteristics were determined by [facility] in a manner consistent with CLIA requirements. This test has not been cleared or approved by the U.S. Food and Drug Administration. Test Performed by: [facility] - [address] [address] Electrician Supervisor Airplane: Mary Jane Topete Ph.D.; CLIA# [id number] Blood Peripheral blood specimen / Unknown Venipuncture / Unknown 01/03/2024 4:22 AM CDT 01/03/2024 4:55 AM CDT Alicia Mcmanus APRN [facility] BLOOD ORDERABLES Final Result Performing Organization Address City/[facility]/ZIP Co de Phone Number [facility] MATTHEW * Islet Antigen 2 (IA-2) Antibody (01/03/2024 4:22 AM CDT) IA-2 Antibody 0.00 <=0.02 nmol/L 01/07/2024 12:20 AM CDT [facility] TIFF Comment: ADDITIONAL INFORMATION This test was developed and its performance characteristics determined by [facility] in a manner consistent with CLIA requirements. This test has not been cleared or approved by the U.S. Food and Drug Administration. Test Performed by: [place] [address] Electrician Supervisor [employer]plane: Mary Jane Topete Ph.D.; CLIA# [id number] Blood Peripheral blood specimen / Unknown Venipuncture / Unknown 01/03/2024 4:22 AM CDT 01/03/2024 4:55 AM CDT Alic[facility] BLOOD ORDERABLES Final Result Performing Organization Address [facility] de Phone Number DINA MATTHEW * GREG Ab Assay (01/03/2024 4:22 AM CDT) Pathologist [facility] GAD65 [facility] 0.00 <=0.02 nmol/L 01/07/2024 12:01 AM CDT [facility] TIFF Comment: ADDITIONAL INFORMATION This test was developed and its performance characteristics determined by [facility] in a manner consistent with CLIA requirements. This test has not been cleared or approved by the U.S. Food and Drug Administration. Test Performed by: [place] [address] Electrician Supervisor Airplane: Mary Jane Topete Ph.D.; CLIA# [id number] Blood Peripheral blood specimen / Unknown Venipuncture / Unknown 01/03/2024 4:22 AM CDT 01/03/2024 4:55 AM CDT Alicia Sohail Mcmanusemily MARIE LAB BLOOD ORDERABLES Final Result Performing Organization Address [facility]/ZIP Co de Phone Number [facility] TIFF * Insulin Ab (01/03/2024 4:22 AM CDT) Pathologist [facility] Insulin [facility] 0.00 0.00 - 0.02 nmol/L 01/06/2024 5:14 PM CDT [facility] TIFF Comment: ADDITIONAL INFORMATION This test was developed and its performance characteristics determined by [facility] in a manner consistent with CLIA requirements. This test has not been cleared or approved by the U.S. Food and Drug Administration. Test Performed by: [place] [address] Electrician Supervisor Airplane: Mary Jane Topete Ph.D.; CLIA# [id number] Blood Peripheral blood specimen / Unknown Venipuncture / Unknown 01/03/2024 4:22 AM CDT 01/03/2024 4:55 AM CDT Alicia Sohail Mcmanusemily MÉNDEZN LAB BLOOD ORDERABLES Final Result Performing Organization Address City/[facility] Co de Phone Number [facility] TIFF * C Peptide (01/03/2024 4:22 AM CDT) Pathologist [facility] C-Peptide 2.12 1.10 - 4.40 ng/mL 01/03/2024 5:48 AM CDT [facility] [place] Blood Peripheral blood specimen / Unknown Venipuncture / Unknown 01/03/2024 4:22 AM CDT 01/03/2024 4:55 AM CDT Alicia P Mcmanus CREDIT COLLECTOR LAB BLOOD ORDERABLES Final Result [facility] Unless otherwise noted, all lab tests performed by: Division of Pathology and Laboratory Medicine [facility] [place] [address] * (ABNORMAL) Hemogram (01/02/2024 7:20 PM CDT) [...] PM CDT 01/02/2024 7:24 PM CDT Derian Mckeon ALBERT LAB BLOOD ORDERABLES Final R esult [facility] Unless otherwise noted, all lab tests performed by: Division of Pathology and Laboratory Medicine [address] [place] [phone] * (ABNORMAL) Beta Hydroxy Quant (01/02/2024 7:20 [...] by: Division of Pathology and Laboratory Medicine [address] [place] [address] * (ABNORMAL) ABG+ (ABG, Na, K, Cl, Glu, Hgb, Hct, Lactate, Ion Ca) (01/02/2024 10:38 AM CDT) Only the most recent of2 resultswithin the time period is included. Sodium Arterial 140 136 - 146 mmol/L 01/02/2024 10:44 AM [facility] Potassium Arterial 3.7 3.4 - 4.5 mmol/L 01/02/2024 10:44 AM [facility] Chloride Arterial 103 98 - 106 mmol/L 01/02/2024 10:44 AM [facility] Glucose Arterial 270(H) 70 - 105 mg/dL 01/02/2024 10:44 AM [facility] Hgb Art 12.9(L) 13.5 - 17.5 g/dL 01/02/2024 10:44 AM [facility] Hematocrit Arterial 40(L) 42 - 52 % 01/02/2024 10:44 AM [facility] Lactate Arterial 1.0(H) 0.4 - 0.8 mmol/L 01/02/2024 10:44 AM [facility] Calcium Ionized Arterial 1.14(L) 1.15 - 1.29 mmol/L 01/02/2024 10:44 AM [facility] pH Arterial 7.35 7.35 - 7.45 01/02/2024 10:44 AM [facility] P CO2 Arterial 42.9 35.0 - 48.0 mmHg 01/02/2024 10:44 AM [facility] P O2 Arterial 164(H) 83 - 108 mmHg 01/02/2024 10:44 AM [facility] Bicarbonate Arterial 24 21 - 28 mmol/L 01/02/2024 10:44 AM [facility] WB Anion Gap 13 7 - 16 mmol/L 01/02/2024 10:44 AM [facility] Base Excess Arterial -2 -2 - 3 mmol/L 01/02/2024 10:44 AM [facility] Oxygen Saturation Arterial 99 95 - 99 % 01/02/2024 10:44 AM [facility] Oxygen FLOW Rate/ FiO2 01/02/2024 10:44 AM [facility] O2 Therapy 01/02/2024 10:44 AM [facility] Art Kirill Test Not Applicable (Arterial Line Draw) 01/02/2024 10:44 AM CDT [facility] Blood Arterial blood specimen [...] by: Division of Pathology and Laboratory Medicine [address] [place] [phone] * Intraoperative Ultrasound - For Image Storage [...] [facility] [address] [place] [address] [place] [address] * Preop Updated Expiration (12/23/2023 8:51 AM CDT) PREOP STATUS 01/02/2024 11:33 PM CDT [facility] [...] [facility] [address] [place] [address] [place] [address] * (ABNORMAL) Urinalysis with Reflex Culture (12/23/2023 8:51 AM CDT) Urine Appearance Clear Clear 12/23/19 9:33 AM CDT [facility] Urine Color Straw Colorless, Straw, Yellow, Dark Yellow, Straw-Yellow 12/23/2023 9:33 AM CDT [facility] Urine Specific Boaz 1.032 1.003 - 1.035 12/23/2023 9:33 AM [...] 8:51 AM CDT 12/23/2023 9:10 AM CDT [facility] - 12/23/2023 9:33 AM CDT Some reporting parameters within the Urinalysis test have changed due to the implementation of new instrumentation in the Main [place], allowing greater sensitivity of measurement. Urinalysis results reported by the [facility] using existing instrumentation, as well as Urinalysis testing performed manually or by back-up methodology at the main [place], will remain relatively unchanged. New reporting parameters and units will now be reported for all campuses. Margoth Souza MD URINE ORDERABLES Final Result [facility] Unless otherwise noted, all lab tests performed by: Division of Pathology and Laboratory Medicine [address] [place] [phone] * 30-Day Pre-Op Type and Screen (12/23/2023 [...] [facility] [address] [place] [address] [address] [place] [address] * TMP Interpretation Exception PreOp Expiration (12/23/2023 8:51 AM CDT) TMP Exception 12/24/2023 10:47 AM CDT [facility] TMP Signature . 12/24/2023 10:47 AM CDT [facility] Blood Peripheral blood specimen / Unknown Venipuncture / Unknown 12/23/2023 8:51 AM CDT 12/23/2023 9:00 AM CDT Margoth Souza MD BLOOD BANK TEST ORDERABLES Final Result Performing Organization Address City/[facility]/ZIP Co de Phone Number [facility] [address] [facility] [address] [place] [address] * ACTH (12/09/2023 9:45 AM CDT) [facility] ACTH 22 7 - 63 pg/mL [...] with extended dilution as it exceeds the people greeter's recommended limit. ACTH reference intervals are established [...] by: Division of Pathology and Laboratory Medicine [address] [place] [phone] * DHEA Sulfate (12/09/2023 9:45 AM CDT) [facility] [place] [address] 20 - 299 mcg/dL 12/10/2023 12:10 PM CDT [facility] Comment: Test Performed by: [facility] [address] [place] [address] Electrician Supervisor Airplane: Mary Jane Topete Ph.D.; CLIA# [id number] Blood Peripheral blood specimen / Unknown Venipuncture / Unknown 12/09/2023 9:45 AM CDT 12/09/2023 9:56 AM CDT Veronica Del Castillo CREDIT COLLECTOR LAB BLOOD ORDERABLES Final Result [facility] FERNA[facility] MATTHEW * Cortisol, Total (12/09/2023 9:45 AM CDT) [facility] Cortisol 11.39 4.82 - 19.50 mcg/dL 12/09/2023 11:00 AM CDT [facility] Blood Peripheral blood specimen / Unknown Venipuncture / Unknown 12/09/2023 9:45 AM CDT 12/09/2023 9:55 AM CDT Narrative [facility] - 12/09/2023 11:00 AM CDT Cortisol [...] Afternoon (4-8 pm): 2.47 - 11.9 mcg/dL LeahElaine YouJeanEvonne [facility] LAB BLOOD ORDERABLES Final Result [facility] Unless otherwise noted, all lab tests performed by: Division of Pathology and Laboratory Medicine [address] [place] [phone] after 10/05/2023 Insurance MEDICARE PART A AND B MEDICARE PART A AND B Advance Directives * Full Code (Latest Code Status on File) Date Activated Date Inactivated Comments 10/02/2024 12:32 PM Update based on Advanced Directive Documentation * Full Code Date Activated Date Inactivated Comments 04/12/2024 1:24 PM 04/12/2024 5:43 PM * Full Code Date Activated Date Inactivated Comments 01/02/2024 1:48 PM 01/03/2024 7:17 PM Care Teams Bellstand Attendant Relationship Specialty Start Date End Date Margoth Souza MD [address] [place] [phone] [email or web address] PCP - General Urology 07/30/23 04/14/24 Eagle Zhu DO [address] [place] [phone] [email or web address] PCP - External Primary Care Provider Family Practice 04/08/24 Marianela Hutchinson MD [address] [place] [phone] [email or web address] PCP - General Gastrointestinal Medical Oncology 05/04/24 Mary Jane Cassidy MD [address] [place] [phone] [email or web address] Consulting Physician Endocrinology 12/09/23 Barry He MD [address] [place] [phone] [email or web address] Consulting Physician Internal Medicine 12/23/23 Patience Hunt MD [address] [place] [phone] [email or web address] Consulting Physician Endocrinology 12/31/23 Marianela Hutchinson MD [address] [place] [phone] [email or web address] Consulting Physician Gastrointestinal Medical Oncology 04/13/24 Margoth Souza MD [address] [place] [phone] [email or web address] Consulting Physician Urology 04/15/24 Ceci Nicholson MD [address] [place] [phone] [email or web address] Consulting Physician Internal Medicine 04/09/24 Sigifredo Davenport MD [address] [place] [phone] [email or web address]. [facility] Consulting Physician Internal Medicine 06/29/24 Abilio Ng PA-C [address] [place] [address] Physician Trailer Body Assembler Interventional Radiology 10/02/23
[2024-10-04] MEDS ORDERED: METOCLOPRAMIDE 10 MG/2mL INJ ONE (01:25)
--- NOTE | 2024-10-04 01:25 | ER ---
Nurse's Notes [facility] Name: Zeke Mackay Sr Age: 59 yrs Sex: Male : 1965 Arrival Date: 10/04/2024 Time: 00:33 Bed Treatment Private MD: Diagnosis: Nausea Presentation: 10/04 00:48 Chief complaint: Patient states: FELLS NAUSEATED....HASN'T TAKEN PHENERGAN. Coronavirus br2 screen: Client denies travel out of the [place] in the last 14 days. Ebola Screen: Patient denies exposure to infectious person. Initial Sepsis Screen: Does the patient meet any 2 criteria? No. Patient's initial sepsis screen is negative. Does the patient have a suspected source of infection? No. Patient's initial sepsis screen is negative. Risk Assessment: Do you want to hurt yourself or someone else? Patient reports no desire to harm self or others. Onset of symptoms was October 04, 2024 at 00:00. 00:48 Method Of Arrival: Ambulatory br2 00:48 Acuity: RICKEY 4 br2 Triage Assessment: 00:48 General: Appears uncomfortable, Behavior is calm, cooperative. Pain: Denies pain. GI: br2 Reports nausea. 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 - Infectious Disease History:: Denies. - Social history:: Smoking status: Patient denies any tobacco usage or history of. Patient uses street drugs, marijuana, Patient/guardian denies using alcohol. - Family history:: not pertinent. Screenin:23 [facility] ED Fall Risk Assessment (Adult) History of falling in the last 3 months, br2 including since admission No falls in past 3 months (0 pts) Confusion or Disorientation No (0 pts) Intoxicated or Sedated No (0 pts) Impaired Gait No (0 pts) Mobility Assist Device Used No (0 pt) Altered Elimination No (0 pt) Score/Fall Risk Level 0 - 2 = Low Risk Oriented to surroundings. Abuse screen: Denies threats or abuse. Denies injuries from another. Nutritional screening: No deficits noted. Tuberculosis screening: No symptoms or risk factors identified. Assessment: 01:23 Reassessment: SEE TRIAGE ASSESSMENT. br2 04:40 Reassessment: Patient is alert, oriented x 3, equal unlabored respirations, skin br2 warm/dry/pink. Patient states feeling better. Patient states symptoms have improved. Vital Signs: 00:48 BP 215 / 92; Pulse 88; Resp 18; Temp 97.2; Pulse Ox 99% ; Weight 86.18 kg; Height 6 ft. br2 2 in. ; Pain 0/10; 00:48 Body Mass Index 24.39 (86.18 kg, 187.96 cm) br2 00:48 Pain Scale: Adult br2 ED Course: 00:35 Patient arrived in ED. mr 00:36 Sylvain Leger MD is Attending Physician. rt 00:51 Triage completed. br2 01:23 Courtney Dubose, RN is Primary Nurse. br2 01:23 Arm band placed on right wrist. br2 01:23 Patient has correct armband on for positive identification. Provided Education on: PLAN br2 OF CARE. 04:40 No provider procedures requiring assistance completed. Patient did not have IV access br2 during this emergency room visit. Administered Medications: 01:31 Drug: metoCLOPramide IM 10 mg IM once Route: IM; Site: right deltoid; br2 02:00 Follow up: Response: No adverse reaction br2 02:49 Drug: Promethazine IM 25 mg IM once Route: IM; Site: right deltoid; br2 03:15 Follow up: Response: No adverse reaction br2 Outcome: 01:24 Discharge ordered by MD. rt 04:40 Discharged to home ambulatory, br2 04:40 Condition: improved 04:40 Discharge instructions given to patient, Instructed on discharge instructions, Demonstrated understanding of instructions, 05:40 Discharge ordered by MD. rt 06:10 Patient left the ED. br2 Signatures: Hollie Garcia, Dillan Grimaldo mr Sylvain Leger MD MD rt Courtney Dubose, RN RN br2 Corrections: (The following items were deleted from the chart) 00:53 00:48 Pulse 88bpm; Resp 18bpm; Pulse Ox 99%; Temp 97.2F; 86.18 kg; Height 6 ft. 2 in.; br2 BMI: 24.3; br2
--- NOTE | 2024-10-04 01:25 | EDPHYS ---
Physician Documentation [facility] Name: Zeke Mackay Sr Age: 59 yrs Sex: Male : 1965 Arrival Date: 10/04/2024 Time: 00:33 Bed Treatment Private MD: RAVIN Physician Sylvain Leger HPI: 10/04 01:25 This 59 yrs old Male presents to ER via Ambulatory with complaints of Abdominal Pain, rt Vomiting. 01:25 Patient with history of gastric cancer presents to the ED with recurrence of the rt nausea. States this occurred after eating, states that he that he ate too fast. Denies abdominal pain to me, with acute complaints, symptoms are moderate severity, no other aggravating or elevating factors.. 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 - Infectious Disease History:: Denies. - Social history:: Smoking status: Patient denies any tobacco usage or history of. Patient uses street drugs, marijuana, Patient/guardian denies using alcohol. - Family history:: not pertinent. ROS: 01:25 Constitutional: Negative for fever, chills, and weight loss, Cardiovascular: Negative rt for chest pain, palpitations, and edema, Respiratory: Negative for shortness of breath, cough, wheezing, and pleuritic chest pain, MS/Extremity: Negative for injury and deformity, Skin: Negative for injury, rash, and discoloration, Neuro: Negative for headache, weakness, numbness, tingling, and seizure, Psych: Negative for depression, anxiety, suicide ideation, homicidal ideation, and hallucinations, 01:25 Abdomen/GI: Positive for nausea and vomiting, Exam: 01:25 Constitutional: This is a well developed, well nourished patient who is awake, alert, rt and in no acute distress. Head/Face: Normocephalic, atraumatic. Chest/axilla: Normal chest wall appearance and motion. Nontender with no deformity. No lesions are appreciated. Cardiovascular: Regular rate and rhythm with a normal S1 and S2. No gallops, murmurs, or rubs. Normal PMI, no JVD. No pulse deficits. Respiratory: Lungs have equal breath sounds bilaterally, clear to auscultation and percussion. No rales, rhonchi or wheezes noted. No increased work of breathing, no retractions or nasal flaring. Abdomen/GI: Soft, non-tender, with normal bowel sounds. No distension or tympany. No guarding or rebound. No evidence of tenderness throughout. Skin: Warm, dry with normal turgor. Normal color with no rashes, no lesions, and no evidence of cellulitis. MS/ Extremity: Pulses equal, no cyanosis. Neurovascular intact. Full, normal range of motion. Vital Signs: 00:48 BP 215 / 92; Pulse 88; Resp 18; Temp 97.2; Pulse Ox 99% ; Weight 86.18 kg; Height 6 ft. br2 2 in. ; Pain 0/10; 00:48 Body Mass Index 24.39 (86.18 kg, 187.96 cm) br2 00:48 Pain Scale: Adult br2 MDM: 01:21 Medical Screening Exam initiated rt 01:25 Differential diagnosis: Nausea due to cancer. Data reviewed: vital signs, nurses notes. rt Test considered but Not performed: Other Details Patient states that he does not wish to have any labs or imaging be performed. This is a chronic issue, states that he wishes to have medicines and then subsequently be discharged.. Care significantly affected by the following chronic conditions: Cancer. Counseling: I had a detailed discussion with the patient and/or guardian regarding the historical points, exam findings, and any diagnostic results supporting the discharge/admit diagnosis, the need for outpatient follow up, to return to the emergency department if symptoms worsen or persist or if there are any questions or concerns that arise at home. Response to treatment: the patient's symptoms have mildly improved after treatment. Administered Medications: 01:31 Drug: metoCLOPramide IM 10 mg IM once Route: IM; Site: right deltoid; br2 02:00 Follow up: Response: No adverse reaction br2 02:49 Drug: Promethazine IM 25 mg IM once Route: IM; Site: right deltoid; br2 03:15 Follow up: Response: No adverse reaction br2 Disposition Summary: 10/04/24 05:40 Discharge Ordered Notes: Location: Home(10/04/24 05:40) rt Problem: new(10/04/24 05:40) rt Symptoms: have improved(10/04/24 05:40) rt Condition: Stable(10/04/24 05:40) rt Diagnosis - Nausea(10/04/24 05:40) rt Followup: rt - With: Private Physician - When: 2 - 3 days - Reason: Forms: - Medication Reconciliation Form rt - Antibiotic Education rt - Prescription Opioid Use rt - Patient Portal Instructions rt - Leadership Thank You Letter rt Signatures: Sylvain Leger MD MD rt Courtney Dubose RN RN br2 Corrections: (The following items were deleted from the chart) 02:36 01:24 Home rt rt 02:36 01:24 an ongoing problem rt rt 02:36 01:24 have improved rt rt 02:36 01:24 Stable rt rt 02:36 01:24 Nausea rt rt
[2024-10-04] MEDS ORDERED: PROMETHAZINE INJ 25 MG/ML AMP IM ONE (02:43)
[2024-10-04 06:16] VITALS: BP 215/92; TEMP 97.2; O2SAT 99
== END 2024-10-04 06:10 | disposition home or self-care (01) ==
LOC: ER 00:33
DX: R11.0 Nausea (principal); Z85.028 Personal history of other malignant neoplasm of stomach; Z85.528 Personal history of other malignant neoplasm of kidney; Z85.01 Personal history of malignant neoplasm of esophagus; E11.9 Type 2 diabetes mellitus without complications; I10 Essential (primary) hypertension
CPT/HCPCS: 96372; 99284; J2550; J2765

== ENCOUNTER 2024-10-09 02:29 | Emergency (ER) | payer OTHER, BC ==
--- OUTSIDE RECORDS SUMMARY | 2024-10-09 02:38 | XMS REPORT | Clinical Summary ---
Author Name Unknown Organization [facility] [place] Address [address] [place] [address] Care Team Providers Care Vice President Pharmacy Name Role Phone Margoth Souza MD Primary Care Provider [phone] Mary Jane Cassidy MD Unavailable [phone] Barry He MD Unavailable Patience Hunt MD Unavailable Eagle Zhu DO Unavailable [phone] Marianela Hutchinson MD Unavailable [phone] Margoth Souza MD Unavailable Ceci Nicholson MD Unavailable [phone] Marianela Hutchinson MD Primary Care Provider [phone] Sigifredo Davenport MD Unavailable Abilio Ng-Adams Unavailable [phone] Allergies No known active allergies Medications insulin [...] by Tylenol). 60 mL 4 3:43 PM PROJECT ENGINEER 04/15/20 24 025 Discontinued OLANZapine (ZyPREXA) [...] 9% indicating poor diabetic control 01/02/2024 04/14/2024 rodent exterminator current use of systemic steroid 01/02/2024 04/14/2024 Diabetic ketoacidosis 2023 Overview (01/01/2024): Hospitalized locally 12/03/2023-12/06/2023 Encounters Date Type Department Care Team Description 10/07/2024 4:30 PM CDT Infusion Amb[facility] Treatment [facility] - Purple [address] [facility], 8th [place] [address] Marianela Hutchinson MD Gumban, Connie Y, RN Adenocarcinoma of stomach (Primary Dx) 10/07/2024 Travel 10/05/2024 1:45 PM CDT Infusion Ambulatory Treatment [place] - Blue [address] [facility], 8th [place] [address] Marianela Hutchinson MD Olipas, Donnamarie G, RN Adenocarcinoma of stomach (Primary Dx); Iron deficiency anemia, not otherwise specified 10/05/2024 10:48 AM CDT - 10/05/2024 11:59 PM CDT Hospital Encounter [facility] [address] [place] [address] Marianela Hutchinson MD Adenocarcinoma of stomach Discharge Disposition: Home 10/05/2024 Travel 10/02/2024 Orders Only [facility] [address] [place] [address], 7th [place] [address] Gillian Gomez PA-C 09/25/2024 Telephone MDA [facility] PHYSICIAN [address] [place] [address] Jane Sanchez, curve cleaner Call 09/23/2024 8:56 PM CDT - 09/23/2024 11:34 PM CDT Emergency [facility] [address] [place] [address], 1st [place] [address] Otf Glaser MD Encounter for adjustment and management of vascular access device (Primary Dx); Hypertension Discharge Disposition: Home 09/23/2024 6:50 PM CDT Infusion [facility] Treatment [address] [address] Marianela Hutchinson MD Rocafort, Roy G, RN Adenocarcinoma of stomach (Primary Dx) 09/21/2024 4:30 PM CDT Infusion Ambulatory Treatment [address], [address] [place] [address] Marianela Hutchinson MD Joseph, Divya, RN Adenocarcinoma of stomach (Primary Dx); Iron deficiency anemia, not otherwise specified 09/21/2024 2:20 PM CDT Follow-Up [facility] [address] [place] [address] Marianela Hutchinson MD Adenocarcinoma of stomach 09/21/2024 12:48 PM CDT - 09/21/2024 11:59 PM CDT Hospital Encounter [facility] [address] [place] [address] Marianela Hutchinson MD Adenocarcinoma of stomach Discharge Disposition: Home 09/21/2024 Orders Only [facility] [address] [place] [address] Marianela Hutchinson MD Adenocarcinoma of stomach (Primary Dx) 09/21/2024 Orders Only [facility] [address] [place] [address] Radha Castellon [facility] Adenocarcinoma of stomach (Primary Dx); Diarrhea 09/21/2024 Travel 09/21/2024 Orders Only Ambulatory Treatment [address] [address] Marianela Hutchinson MD Adenocarcinoma of stomach (Primary Dx) 09/09/2024 6:30 PM CDT Infusion Ambulatory Treatment [address], [address] [place] [address] Marianela Hutchinson MD Balason, Adda Rica F RN Adenocarcinoma of stomach (Primary Dx) 09/09/2024 Travel 09/07/2024 4:30 PM CDT Infusion Amb[facility] Treatment [facility] - Blue [address] [facility], 8th [place] [address] Marianela Hutchinson MD Castillo, Emmanuel, RN Adenocarcinoma of stomach (Primary Dx); Iron deficiency anemia, not otherwise specified 09/07/2024 1:00 PM CDT [facility] [address] [place] [address], 7th [place] [address] Marianela Hutchinson MD Adenocarcinoma of stomach (Primary Dx) 09/07/2024 10:41 AM CDT - 09/07/2024 11:59 PM CDT Hospital Encounter [facility] [address] [place] [address] Marianela Hutchinson MD Adenocarcinoma of stomach Discharge Disposition: Home 09/07/2024 Orders Only [facility] [address] [place] [address], 7th [place] [address] Marianela Hutchinson MD Adenocarcinoma of stomach (Primary Dx) 09/07/2024 Orders Only [facility] [address] [place] [address], 7th [place] [address] Radha Castellon, [facility] Adenocarcinoma of stomach (Primary Dx); Iron deficiency anemia, not otherwise specified 09/07/2024 Travel 08/26/2024 7:41 PM CDT - 08/26/2024 11:59 PM CDT Hospital Encounter Ambulatory Treatment Center - Main Building [address] [facility], 2nd Floor, [place] [address] Marianela Hutchinson MD Le, Lam RN Adenocarcinoma of stomach (Primary Dx) Discharge Disposition: Home 08/24/2024 1:40 PM CDT [facility] [address] [place] [address], 7th [place] [address] Marianela Hutchinson MD Adenocarcinoma of stomach 08/24/2024 12:42 PM CDT - 08/24/2024 11:59 PM CDT Hospital Encounter Ambulatory Treatment Center - Main Building [address] [place] [address] Main [facility], 2nd Floor, [place] [address] Gillian Gomez PA-C Harrison, Kishanda S, RN Adenocarcinoma of stomach (Primary Dx) Discharge Disposition: Home 08/24/2024 11:16 AM CDT - 08/24/2024 12:41 PM CDT Hospital Encounter Diagnostic [facility] [address] [place] [address] Gillian Gomez PA-C Adenocarcinoma of stomach Discharge Disposition: Home 08/24/2024 Orders Only [facility] [address] [place] [address] Main [facility], 7th [place] [address] Marianela Hutchinson MD Adenocarcinoma of stomach (Primary Dx) 08/24/2024 Telephone [facility] [address] [place] [address] Main [facility], 7th [place] [address] Mony Saavedra, RN 08/24/2024 Orders Only [facility] [address] [place] [address] Main [facility], 7th [place] [address] Radha Castellon [facility] Adenocarcinoma of stomach (Primary Dx) 08/24/2024 Travel 08/24/2024 Orders Only Ambulatory Treatment Center - Main [address], 2nd Floor, [place] [address] Marianela Hutchinson MD Adenocarcinoma of stomach (Primary Dx) 08/21/2024 Telephone [facility] [address] [place] [address], 7th [place] [address] Milagros Rogers RN 08/17/2024 Orders Only [facility] [address] [place] [address] Main [facility], 7th [place] [address] Gillian Gomez PA-C Adenocarcinoma of stomach (Primary Dx) 08/06/2024 Orders Only [facility] [address] [place] [address], 7th [place] [address] Radha Castellon RPH 07/22/2024 Orders Only Ambulatory Treatment [place] - [facility] [address] [facility], 8th [place] [address] Marianela Hutchinson MD Adenocarcinoma of stomach (Primary Dx) 07/21/2024 Telephone Ambulatory Treatment [place] - [facility] [address] [facility], 8th [place] [address] Rosanna Álvarez, ARTURO Chemotherapy Teaching 07/16/2024 2:40 PM PROJECT ENGINEER Follow[facility]Up [facility] [address] [place] [address], 7th [place] [address] Marianela Hutchinson MD Adenocarcinoma of stomach (Primary Dx) 07/16/2024 Orders Only [facility] [address] [place] [address], 7th [place] [address] Marianela Hutchinson MD Adenocarcinoma of stomach (Primary Dx) 07/16/2024 Orders Only [facility] [address] [place] [address], 7th [facility] [place] [address] Radha Castellon, [facility] Adenocarcinoma of stomach (Primary Dx) 07/16/2024 Travel 07/15/2024 10:08 AM PROJECT ENGINEER - 07/15/2024 11:59 PM PROJECT ENGINEER Hospital Encounter CT Imaging and Diagnostic Imaging [address] [place] [address], 3rd [place] [address] Mary Kay Santamaria APRN Adenocarcinoma of stomach Discharge Disposition: Home 07/15/2024 9:49 AM PROJECT ENGINEER - 07/15/2024 10:07 AM PROJECT ENGINEER Hospital Encounter Diagnostic Laboratory Center [address] [place] [address] Mary Kay Santamaria APRN Adenocarcinoma of stomach Discharge Disposition: Home 07/07/2024 Orders Only [facility] [address] [place] [address], 7th [place] [address] Gillian Gomez PA-C Adenocarcinoma of stomach (Primary Dx) 07/06/2024 Telephone [facility] - Surgical Oncology [address] [place] [address] Main [facility], 7th [place] [address] Mary Kay Santamaria, BURIAL VAULT MAKER 07/06/2024 Orders Only [facility] - Surgical Oncology [address] [place] [address] Main [facility]g, 7th [place] [address] Mary Kay Santamaria, BURIAL VAULT MAKER 07/06/2024 Orders Only [facility] [address] [place] [address] Main [facility], 7th [place] [address] Gillian Gomez PA-C Adenocarcinoma of stomach (Primary Dx) 07/06/2024 Multidisciplinary Visit [facility] [address] [place] [address] Main [facility], 7th Floor Elevator A [place] [phone] Gillian Gomez PA-C 07/06/2024 Orders Only [facility] [address] [place] [address] Main [facility], 7th [place] [address] Donnell Van Adenocarcinoma of stomach (Primary Dx) 07/02/2024 11:00 AM PROJECT ENGINEER Nutrition Clinical Nutrition For your Nutrition appointment location directions please call: Marianlea Hutchinson MD Munder, Kathryn, SCOTT Left without seen 07/02/2024 10:30 AM PROJECT ENGINEER [facility] - Surgical Oncology [address] [place] [address] Main [facility], 7th Floor Elevator A [place] [phone] John Fong MD Adenocarcinoma of stomach 07/02/2024 Documentation [facility] - Surgical Oncology [address] [place] [address] Main [facility], 7th Floor Elevator A [place] [phone] John Fong MD 06/30/2024 3:33 PM PROJECT ENGINEER Anesthesia Event Perioperative Evaluation and Management Center [address] [place] [address] Main [facility], 6th Floor Elevator A [place] [phone] Lien Antonio RN 06/30/2024 12:25 PM PROJECT ENGINEER Anesthesia Event Endoscopy Center [address] [place] [address] Main [facility], 5th [place] [address] Susana Kelly MD 06/30/2024 12:00 PM PROJECT ENGINEER - 06/30/2024 12:45 PM PROJECT ENGINEER Surgery Endoscopy Center [address] [place] [address], 5th [place] [address] Brandon Alcala MD DIAGNOSTIC UPPER GASTROINTESTINAL ENDOSCOPY 06/30/2024 10:15 AM PROJECT ENGINEER - 06/30/2024 2:24 PM PROJECT ENGINEER Hospital Encounter Endoscopy Center [address] [place] [address], 5th Floor Elevator C [place] [phone] Brandon Alcala MD Adenocarcinoma of stomach Discharge Disposition: Home 06/30/2024 Travel 06/29/2024 9:00 AM PROJECT ENGINEER Consult Perioperative Evaluation and Management [address] [place] [address], 6th Floor Elevator A [place] [phone] Mary Kay Santamaria APRN Vu, Khanh D, MD Encounter for preprocedural cardiovascular examination (Primary Dx); Coronary arteriosclerosis, not otherwise specified; Cardiomyopathy, not otherwise specified; Hypertension; rodent exterminator current use of 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; Type 2 diabetes mellitus with hyperglycemia; Dyslipidemia; Hyponatremia; Hyperkalemia; Adenocarcinoma of stomach; Paroxysmal atrial fibrillation; Hyperlipidemia, not otherwise specified 06/29/2024 8:00 AM PROJECT ENGINEER POEM Appointments Perioperative Evaluation [facility] Management Center [address] [place] [address], 6th [place] [address] Marianela Hutchinson MD 06/29/2024 7:30 AM PROJECT ENGINEER - 06/29/2024 11:59 PM PROJECT ENGINEER Hospital Encounter [facility] - Cardiology [address] [place] [address], 2nd Floor Elevator A [place] [phone] Mary Kay Santamaria APRN Adenocarcinoma of stomach Discharge Disposition: Home 06/29/2024 Travel 06/23/2024 Documentation [facility] [address] [place] [address], 7th [place] [address] Mony Saavedra, RN 06/22/2024 12:20 PM PROJECT ENGINEER [facility] [address] [place] [address], [address] [place], [place] [address]ator [place] [address] Marianela Hutchinson MD Adenocarcinoma, NOS of stomach, NOS 06/22/2024 Orders Only [facility] [address] [place] [address], [address] [place], [place] [address] [address] Radha Castellon, [facility] 06/22/2024 Travel 06/20/2024 10:45 AM PROJECT ENGINEER - 06/20/2024 11:59 PM PROJECT ENGINEER Hospital Encounter Diagnostic Imaging Center [address] [place] [address], 3rd [place] [address] Adenocarcinoma, NOS of stomach, NOS; Malignant neoplasm of overlapping sites of esophagus Discharge Disposition: Home 06/20/2024 10:08 AM PROJECT ENGINEER - 06/20/2024 10:44 AM PROJECT ENGINEER Hospital Encounter Diagnostic Laboratory Center [address] [place] [address] Gillian Gomez PA-C Adenocarcinoma, NOS of stomach, NOS Discharge Disposition: Home 06/16/2024 [facility] [facility] - Surgical Oncology [address] [place] [address], [address] [place], [place] [address]ator [place] [address] Mary Kay Santamaria APRN 06/15/2024 1:30 PM PROJECT ENGINEER Infusion Ambulatory Treatment Center - Blue [address] [facility], 8th [place] [address] Marianela Hutchinson MD [facility], Jorge Tyson RN Adenocarcinoma of stomach (Primary Dx); Iron deficiency anemia, not otherwise specified 06/15/2024 12:40 PM PROJECT ENGINEER [facility] [address] [place] [address], [address] [place] [address] [place] [address] Marianela Hutchinson MD Adenocarcinoma, NOS of stomach, NOS; Malignant neoplasm of overlapping sites of esophagus 06/15/2024 10:24 AM PROJECT ENGINEER - 06/15/2024 11:59 PM PROJECT ENGINEER Hospital Encounter Diagnostic Laboratory Center [facility] [place] [address] Marianela Hutchinson MD Adenocarcinoma of stomach; Adenocarcinoma, NOS of stomach, NOS Discharge Disposition: Home 06/15/2024 Orders Only [facility] [address] [place] [address] Main [facility], 7th [place] [address] Radha Castellon [facility] Adenocarcinoma of stomach (Primary Dx) 06/15/2024 Orders Only [facility] [address] [place] [address], 7th [place] [address] Gillian Gomez PA-C 06/15/2024 Travel 06/15/2024 Telephone [facility] - Gastroenterology , Hepatology & Nutrition [address] [place] [address], [facility] [place] [address] Arnaldo Araujo PA-C 06/15/2024 Multidisciplinary Visit [facility] [address] [place] [address], [address] [place], [place] [address]ator [place] [address] Lakeshia Pablo PA 06/15/2024 Orders Only [facility] [address] [place] [address], [address] [place], [place] [address]ator [place] [address] Marianela Hutchinson MD Adenocarcinoma of stomach (Primary Dx) 06/12/2024 Prep for Surgery [facility] - Gastroenterology , Hepatology & Nutrition [address] [place] [address], [address] [place], [place] [address]ator [place] [address] Arnaldo Araujo PA-C Adenocarcinoma of stomach (Primary Dx) 06/12/2024 Telephone [facility] - Surgical Oncology [address] [place] [address] Main [facility], [facility] Floor [facility] [address] Mary Kay Santamaria APRN 06/12/2024 Orders Only [facility] - Surgical Oncology [address] [place] [address] Main [facility], [facility] [place] [address] Mary Kay Santamaria, FRANK Adenocarcinoma of stomach (Primary Dx) 06/10/2024 Orders Only [facility] - Surgical Oncology [address] [place] [address], 7th [place] [address] Mary Kay Santamaria APRN Adenocarcinoma of stomach (Primary Dx) 06/05/2024 Telephone [facility] - Gastroenterology , Hepatology & Nutrition [address] [place] [address], 7th [place] [address] Arnaldo Araujo PA-C 06/03/2024 5:30 PM PROJECT ENGINEER Infusion Ambulatory Treatment Center - Blue [address] [facility], 8th [place] [address] Marianela Hutchinson MD Lewandowski, Teresa M, RN Adenocarcinoma of stomach (Primary Dx) 06/03/2024 Travel 06/02/2024 Telephone [facility] [address] [place] [address], 7th [place] [address] Mony Saavedra RN 06/01/2024 1:00 PM PROJECT ENGINEER Infusion [facility] [address] [facility], Floor 6 [place] [address] Marianela Hutchinson MD Shaik, Anna Marie B RN Adenocarcinoma of stomach (Primary Dx); Iron deficiency anemia, not otherwise specified 06/01/2024 10:53 AM PROJECT ENGINEER - 06/01/2024 11:59 PM PROJECT ENGINEER Hospital Encounter Diagnostic Laboratory Center [address] [place] [address] Marianela Hutchinson MD Adenocarcinoma of stomach; Iron deficiency anemia, not otherwise specified Discharge Disposition: Home 06/01/2024 Orders Only [facility] [address] [place] [address], 7th [place] [address] Marianela Hutchinson MD 06/01/2024 Orders Only [facility] [address] [place] [address], 7th [place] [address] Radha Castellon [facility] Adenocarcinoma of stomach (Primary Dx); Iron deficiency anemia, not otherwise specified 06/01/2024 Travel 06/01/2024 Orders Only [facility] - Ambulatory Treatment Center [address] [facility], Floor 6 [place] [address] Marianela Hutchinson MD Adenocarcinoma of stomach (Primary Dx) 05/26/2024 Telephone [facility] - Gastroenterology , Hepatology & Nutrition [address] [place] [address] Main [facility], 7th [place] [address] Arnaldo Araujo PA-C 05/22/2024 Telephone [facility] - Gastroenterology , Hepatology & Nutrition [facility], 7th [place] [address] Arnaldo Araujo PA-C 05/22/2024 Orders Only [facility] - Gastroenterology , Hepatology & Nutrition [address] [place] [address], 7th [place] [address] Arnaldo Araujo PA-C Candidal esophagitis (Primary Dx) 05/20/2024 4:30 PM PROJECT ENGINEER - 05/20/2024 11:59 PM PROJECT ENGINEER Hospital Encounter Ambulatory Treatment Center - [address], 2nd Floor, [place] [address] Marianela Hutchinson MD Lewandowski, Teresa M RN Adenocarcinoma of stomach Discharge Disposition: Home 05/19/2024 12:44 PM PROJECT ENGINEER Anesthesia Event Endoscopy Center [address] [place] [address], 5th [place] [address] Maurice Ferrera MD [facility] 05/19/2024 12:00 PM PROJECT ENGINEER - 05/19/2024 1:10 PM PROJECT ENGINEER Surgery [facility]oscopy Center [address] [place] [address], 5th Floor Elevator C [place] [phone] Brandon Alcala MD UPPER GASTROINTESTINAL ENDOSCOPY OF ESOPHAGUS, STOMACH, OR DUODENUM ANDJ ADJACENT STRUCTURES, WITH ENDOSCOPIC ULTRASOUND EXAMINATION 05/19/2024 11:17 AM PROJECT ENGINEER - 05/19/2024 2:49 PM PROJECT ENGINEER Hospital Encounter Endoscopy Center [address] [place] [address], 5th [place] [address] Brandon Alcala MD Adenocarcinoma of stomach Discharge Disposition: Home 05/19/2024 Travel 05/18/2024 1:00 PM PROJECT ENGINEER Infusion [facility] - Ambulatory Treatment Center [address] [facility], Floor 6 [place] [address] Marianela Hutchinson MD Rupp, Alexa B, RN Adenocarcinoma of stomach (Primary Dx) 05/18/2024 12:20 PM PROJECT ENGINEER Follow[facility]Up [facility] [address] [place] [address], [facility] [place] [address] Marianela Hutchinson MD Adenocarcinoma, NOS of stomach, NOS 05/18/2024 11:00 AM PROJECT ENGINEER POEM Appointments Perioperative Evaluation and Management Center [address] [place] [address] [place] [address] Marianela Hutchinson MD 05/18/2024 10:32 AM PROJECT ENGINEER - 05/18/2024 11:59 PM PROJECT ENGINEER Hospital Encounter Diagnostic Laboratory Center [address] [place] [address] Gillian Gomez PA-C Adenocarcinoma, NOS of stomach, NOS Discharge Disposition: Home 05/18/2024 Orders Only [facility] [address] [place] [address], [address] [place] [address] Marianela Hutchinson MD Adenocarcinoma of stomach (Primary Dx) 05/18/2024 Orders Only [facility] [address] [place] [address] Radha Castellon [facility] Adenocarcinoma of stomach (Primary Dx); Iron deficiency anemia, not otherwise specified 05/18/2024 Travel 05/15/2024 11:59 PM PROJECT ENGINEER Anesthesia Event Perioperative Evaluation and Management Center [address] [place], [place] [address]ator [place] [phone] Eri Lynne RN 05/06/2024 5:30 PM PROJECT ENGINEER Infusion Ambulatory Treatment [place] - Blue [address] [facility], 8th Floor Elevator T [place] [id number] Marianela Hutchinson MD Pagara, Leni S, RN Adenocarcinoma of stomach 05/04/2024 12:36 PM PROJECT ENGINEER - 05/04/2024 11:59 PM PROJECT ENGINEER Hospital Encounter Ambulatory Treatment Center - [address], 2nd Floor, [place] [address] Gillian Gomez PA-C Jo, Edifia Sungsoon, RN Adenocarcinoma of stomach (Primary Dx) Discharge Disposition: Home 05/04/2024 12:20 PM PROJECT ENGINEER Follow[facility] [address] [place] [address], 7th [place] [address] Marianela Hutchinson MD Adenocarcinoma, NOS of stomach, NOS 05/04/2024 11:10 AM PROJECT ENGINEER - 05/04/2024 12:35 PM PROJECT ENGINEER Hospital Encounter Diagnostic Laboratory Center [address] [place], [place] [id number] Gillian Gomez PA-C Adenocarcinoma, NOS of stomach, NOS; Adenocarcinoma of stomach Discharge Disposition: Home 05/04/2024 Orders Only [facility] [address] [place] [address], 7th [place] [address] Marianela Hutchinson MD Adenocarcinoma of stomach (Primary Dx) 05/04/2024 Orders Only [facility] [address] [place] [address], 7th [place] [address] Radha Castellon [facility] Adenocarcinoma of stomach (Primary Dx) 05/04/2024 Travel 04/30/2024 Orders Only [facility] - Surgical Oncology [address] [place] [address], 7th Floor Elevator A [place] [phone] Mary Kay Santamaria APRN Adenocarcinoma of stomach (Primary Dx); Paroxysmal atrial fibrillation; Hyperlipidemia, not otherwise specified; Type 2 diabetes mellitus with hyperglycemia 04/27/2024 8:05 PM PROJECT ENGINEER Ancillary Procedure Image Library [address] [place] [address] Cancer 04/27/2024 8:00 PM PROJECT ENGINEER Ancillary Procedure Image Library [address] [place] [address] Cancer 04/27/2024 Orders Only [facility] [address] [place] [address], 7th [place] [address] Donnell Van Adenocarcinoma of stomach (Primary Dx) 04/24/2024 Documentation [facility] [address] [facility], 8th [place] [address] Mary Kay Santamaria, FRANK 04/24/2024 Orders Only [facility] [address] [place] [address], 7th [place] [address] Mary Kay Santamaria, BURIAL VAULT MAKER Adenocarcinoma, NOS of stomach, NOS (Primary Dx) 04/24/2024 Telephone [facility] [address] [place] [address], 7th [place] [address] Mary Kay Santamaria, FRANK 04/22/2024 Lab Requisition [facility] Sincere Moralez MD Jain, Shilpa, MD 04/21/2024 Orders Only [facility] [address] [place] [address], 7th [place] [address] Gillian Gomez PA-C Adenocarcinoma, NOS of stomach, NOS (Primary Dx); Adenocarcinoma of stomach 04/16/2024 Telephone [facility] [address] [place] [address] 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, curve cleaner Call 04/15/2024 10:09 AM PROJECT ENGINEER Anesthesia Event MAIN OR [address] [place], [place] [id number] Meenakshi Crowe MD Miller, Wendy, FABRICATION MANAGER 04/15/2024 10:05 AM PROJECT ENGINEER - 04/15/2024 1:25 PM PROJECT ENGINEER Surgery MAIN OR [address] [place] [address] John Fong MD ROBOTIC ASSISTED SURGICAL LAPAROSCOPY 04/15/2024 7:32 AM PROJECT ENGINEER - 04/15/2024 11:50 PM PROJECT ENGINEER Hospital Encounter MAIN OR [address] [place] [address] John Fong MD Adenocarcinoma of stomach (Primary Dx) Discharge Disposition: Home 04/15/2024 Travel 04/14/2024 2:30 PM PROJECT ENGINEER Consult [facility] [address] [place] [address] Main [facility], 7th [place] [address] Gillian Gomez PA-C Badgwell, Brian, MD Adenocarcinoma, NOS of stomach, NOS (Primary Dx); Nausea 04/14/2024 Documentation [facility] [address] [place] [address], 7th [place] [address] John Fong MD 04/13/2024 3:00 PM PROJECT ENGINEER Consult [facility] [address] [place] [address], 7th [place] [address] Marianela Hutchinson MD Mass of stomach (Primary Dx) 04/13/2024 2:02 PM PROJECT ENGINEER Anesthesia Event [facility] [address] [place] [address], 6th [place] [address] Curtis Moctezuma PA 04/12/2024 8:22 AM PROJECT ENGINEER - 04/12/2024 3:42 PM PROJECT ENGINEER Hospital Encounter MAIN [id number] [address] [place] [address] Nghia Zhu MD Elsayem, Ahmed, MD Nausea and vomiting (Primary Dx); Gastric cancer; Pancreatitis Discharge Disposition: Left Against Medical Advice 04/12/2024 Travel 04/09/2024 8:25 PM PROJECT ENGINEER Ancillary Procedure Image Library [address] [place] [address] Margoth Souza MD Cancer 04/09/2024 8:20 PM PROJECT ENGINEER Ancillary Procedure Image Library [address] [place] [address] Margoth Souza MD Cancer 04/09/2024 8:15 PM PROJECT ENGINEER Ancillary Procedure Image Library [address] [place] [address] Margoth Souza MD Cancer 04/09/2024 8:10 PM PROJECT ENGINEER Ancillary Procedure Image Library [address] [place] [address] Margoth Souza MD Cancer 04/09/2024 8:05 PM PROJECT ENGINEER Ancillary Procedure Image Library [address] [place] [address] Margoth Souza MD Cancer 04/09/2024 8:00 PM PROJECT ENGINEER Ancillary Procedure Image Library [address] [place] [address] Margoth Souza MD Cancer 04/09/2024 10:48 AM PROJECT ENGINEER - 04/09/2024 11:59 PM PROJECT ENGINEER Hospital Encounter [facility] [address] [place] [address] Ceci Nicholson MD Encounter for other preprocedural examination; Atherosclerosis of coronary 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, not otherwise specified; 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 Discharge Disposition: Home 04/09/2024 10:00 AM PROJECT ENGINEER POEM Appointments [facility] [address] [place] [address], 6th [place] [address] Margoth Souza MD 04/09/2024 9:56 AM PROJECT ENGINEER - 04/09/2024 10:47 AM PROJECT ENGINEER Hospital Encounter [facility] [address] [place] [address], 2nd [place] [address] Ceci Nicholson MD Adenocarcinoma of stomach; Hyperlipidemia, not otherwise specified; Encounter for other preprocedural examination; Atherosclerosis of coronary 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, not otherwise specified Discharge Disposition: Home 04/09/2024 9:00 AM PROJECT ENGINEER Consult [facility] Evaluation [facility] Management [address] [place] [address], 6th [place] [address] Mary Kay Santamaria APRN Misoi, Mercy W, MD Encounter for other preprocedural examination (Primary Dx); Adenocarcinoma of stomach; Paroxysmal atrial fibrillation; Hypertension; 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; Hyperlipidemia, not otherwise specified; Current use of 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; Atherosclerosis of coronary 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, not otherwise specified 04/09/2024 Travel 04/08/2024 Prep for Surgery [facility] [address] [place] [address], [address] [place] [address] Mary Kay Santamaria APRN Adenocarcinoma of stomach (Primary Dx); Mass of stomach 04/08/2024 Orders Only [facility] [address] [place] [address], [address] [place] [address] Mary Kay Santamaria APRN Adenocarcinoma of stomach (Primary Dx); Paroxysmal atrial fibrillation; Hypertension; 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; Hyperlipidemia, not otherwise specified; Current use of 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 04/08/2024 Orders Only [facility] [address] [place] [address], [address] [place] [address] Gillian Gomez PA-C Adenocarcinoma, NOS of stomach, NOS (Primary Dx) 04/06/2024 [facility] [address] [place] [address], [address] [place] [address] Roberto Poole PA 04/06/2024 Orders Only [facility] [address] [place] [address], [address] [place] [address] Roberto Poole PA Mass of stomach (Primary Dx) 04/06/2024 Orders Only [facility] [address] [place] [address], [address] [place] [address] [place] [address] Roberto Poole PA Mass of stomach (Primary Dx) 04/06/2024 Telephone [facility] [address] [place] [address], [address] [place] [address] Anais Meng RN 02/11/2024 Travel 02/10/2024 3:30 PM CDT Telemedicine [facility] [address] [place] [address], 7th [place] [address] Margoth Souza MD Renal mass (Primary Dx) 01/02/2024 7:15 AM CDT Ancillary Procedure MAIN OR [address] [place], [place] [phone] Margoth Souza MD 01/02/2024 7:00 AM CDT - 01/02/2024 11:40 AM CDT Surgery MAIN OR [address] [place] [address] Margoth Souza MD ROBOTIC ASSISTED PARTIAL NEPHRECTOMY 01/02/2024 6:58 AM CDT Anesthesia Event MAIN OR [address] [place] [address] Alonzo Liu MD Majekodumi, Jessy, PAXTON 01/02/2024 5:04 AM CDT - 01/03/2024 5:05 PM CDT Hospital Encounter MAIN [id number] [address] [place] [address] Margoth Souza MD Renal mass (Primary Dx) Discharge Disposition: Home 01/02/2024 Travel 12/31/2023 1:04 PM CDT - 12/31/2023 11:59 PM CDT Hospital Encounter CT [facility] Diagnostic [facility] [address] [place] [address], 3rd [place] [address] Margoth Souza MD Renal mass Discharge Disposition: Home 12/31/2023 8:00 AM CDT Consult [facility] [address] [place] [address], 6th [place] [address] Nakia Kirby APRN Khan, Sonya, MD Type 2 diabetes mellitus with hyperglycemia [E11.65] (Primary Dx); Pre-surgery evaluation 12/30/2023 9:30 AM CDT Office Visit [facility], 7th [place] [address] Margoth Souza MD Renal mass 12/30/2023 Travel 12/30/2023 Telephone [facility] [address] [place] [address], 6th [place] [address] Winnie Archibald, ARTURO Appointment (Cannot get internet-phone broke) 12/30/2023 Orders Only [facility] [address] [facility], 7th [place] [address] Roberto Poole PA Renal mass (Primary Dx) 12/29/2023 Orders Only [facility] [address] [place] [address], [address] [place] [address] [place] [address] Veronica Del Castillo APRN 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); Endocrine/metabolic screening; Renal cell carcinoma <Left side> 12/25/2023 8:36 AM CDT Anesthesia Event [facility] [address] [place], [place] [address] [address] Lien Antonio RN 12/23/2023 10:30 AM CDT Consult Perioperative Evaluation and Management [address] [place] [address] [place] [address] Margoth Souza MD Oh, Jeong, MD Encounter for other preprocedural examination (Primary Dx); Renal mass; Hyperlipidemia, not otherwise specified 12/23/2023 9:00 AM CDT POEM Appointments [facility] [address] [place] [address] Margoth Souza MD Pre-surgery evaluation (Primary Dx) 12/23/2023 8:45 AM CDT - 12/23/2023 11:59 PM CDT Hospital Encounter [facility] [address] [place] [address] Margoth Souza MD Renal mass Discharge Disposition: Home 12/23/2023 Travel 12/09/2023 9:33 AM CDT - 12/09/2023 11:59 PM CDT Hospital Encounter [facility] [address] [place] [address] You-Evonne, Leah-Zora, BURIAL VAULT MAKER 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; Endocrine/metabolic screening Discharge Disposition: Home 12/09/2023 8:30 AM CDT Consult Endocrine Center [address] [facility] [address], 6th [place] [address] Mary Jane Cassidy MD 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); Endocrine/metabolic screening; Renal cell carcinoma <Left side> 12/09/2023 Travel 10/23/2023 Orders Only [facility] [address] [facility], 7th [place] [address] Roberto Poole PA Renal mass (Primary Dx); Adrenal mass after 10/10/2023 Surgical History Surgery Date Site/Laterality Comments TOE [...] locally 12/03/2023-12/06/2023 of note, pt was on [facility] Peripheral vascular disease 2023 Left LE [...] on file Legal Sex Male 11:38 AM PROJECT ENGINEER Gender Identity Not on file Sexual Orientation Not on file Occupation Industry Job Start Date Job End Date retired from [employer] Not on file N ot on file Not on file Travel History Travel Start Travel End [place] 04/12/2024 04/12/2024 Obstetrics History Last Filed Vital Signs Vital Sign Reading Time Taken Comments Blood Pressure 165/75 10/07/2024 4:25 PM CDT notified Doretha MORRIS Pulse 82 10/07/2024 4:25 PM CDT Temperature 36.8 °C (98.2 °F) 10/07/2024 4 :25 PM CDT Respiratory Rate 18 10/07/2024 4:25 PM CDT Oxygen Saturation 97% 10/07/2024 4:2 5 PM CDT Inhaled Oxygen Concentration - - Weight 82.4 kg (181 lb 10.5 oz) 10/07/2024 4:25 PM CDT Height 188 cm (6' 2") 05/19/2024 11:53 AM PROJECT ENGINEER Body Mass Index 23.32 05/19/2024 11:53 AM PROJECT ENGINEER Plan of Treatment Upcoming Encounters Date Type Department Care Team (Late st Contact Info) Description 10/25/2024 7:00 AM CDT Appointment [facility] [address] [place] [address] Marianela Hutchinson MD [address] [place] [phone] [email or web address] 10/25/2024 7:[address] [facility] Diagnostic [facility] [address] [place] [address], 3rd [place] [address] Gillian Gomez PA-C [address] [place] [phone] [email or web address] [email or web address] 10/26/2024 12:20 PM CDT Follow-Up [facility] [address] [place] [address], 7th [place] [address] Marianela Hutchinson MD [address] [place] [phone] [email or web address] 10/26/2024 1:15 PM CDT [facility] [address] [facility], 8th [place] [address] Marianela Hutchinson MD [address] [place] [phone] [email or web address] 11/23/2024 7:30 AM CDT Appointment [facility] [address] [place] [address] Marianela Hutchinson MD [address] [place] [phone] [email or web address] 02/01/2025 11:30 AM CDT Appointment [facility] [address] [place] [address] Veronica Del Castillo, BURIAL VAULT MAKER [address] [place] [address] [email or web address] 02/01/2025 11:[address] [facility] Diagnostic [facility] [address] [place] [address], 3rd [place] [address] Veronica Del Castillo, BURIAL VAULT MAKER [facility] [place] [address] [email or web address] 02/01/2025 3:00 PM CDT Follow-Up Endocrine Center [address] [place] [address], 6th [place] [address] Mary Jane Cassidy MD [address] [place] [phone] [email or web address] [email or web address] 02/05/2025 10:45 AM CDT Lab [facility] [address] [place] [address], [address] [place] [address] Margoth Souza MD [address] [place] [phone] [email or web address] [email or web address] 02/05/2025 11:15 AM CDT Ancillary Procedure [facility]-Ray Outpatient Center [address] [place] [address] Margoth Souza MD [address] [place] [phone] [email or web address] [email or web address] 02/05/2025 11:55 AM CDT Ancillary Procedure CT Imaging [address] [place] [address], [address] [place] [address] Margoth Souza MD [address] [place] [phone] [email or web address] 02/08/2025 2:30 PM CDT Telemedicine [facility] [address] [place] [address], [address] [place] [address] Margoth Souza MD [address] [place] [phone] [email or web address] Health Maintenance Due Date Last Done Comments COVID-19 Vaccine (#1) 01/09/1969 Pneumococcal Vaccine: 50+ Years (1 of 2 - PCV) 983 01/09/1975 Influenza Vaccine (Season Ended) 2025 08/05/19 19 Medical Devices Implanted Type Area Artificial Limb Maker Device Identifier Shelf Expiration Date Model / Serial / Lot Slade Muhammad 6fr - [id number] Implanted:Qty: 1 on 04/15/2024 by John Fong MD at [facility] Implant Right: Neck [employer] 12/17/2024 [id number] / / [id number] Procedures Procedure Name Priority Date/Time Associated Diagnosis Comments .CBC Routine 10/05/2024 11:15 AM CDT Adenocarcinoma of stomach COMPREHENSIVE METABOLIC PANEL Routine 11:15 AM CDT Adenocarcinoma of stomach COMPLETE BLOOD COUNT W/ DIFFERENTIAL Routine 10/05/2024 11:15 AM CDT Adenocarcinoma of stomach .CBC Routine 09/21/2024 12:58 PM CDT Adenocarcinoma [...] PELVIS W CONTRAST Routine 07/15/2024 4:38 PM PROJECT ENGINEER Adenocarcinoma of stomach .CBC Routine 07/15/2024 10:01 AM PROJECT ENGINEER Adenocarcinoma of stomach CARCINOEMBRYONIC ANTIGEN Routine 025 10:01 AM PROJECT ENGINEER Adenocarcinoma of stomach LACTATE DEHYDROGENASE Routine 07/15/2024 10:01 AM PROJECT ENGINEER Adenocarcinoma of stomach PHOSPHORUS LEVEL Routine 07/15/2024 10:01 AM PROJECT ENGINEER Adenocarcinoma of stomach MAGNESIUM LEVEL Routine 07/15/2024 10:01 AM PROJECT ENGINEER Adenocarcinoma of stomach COMPREHENSIVE METABOLIC PANEL Routine 10:01 AM PROJECT ENGINEER Adenocarcinoma of stomach COMPLETE BLOOD COUNT W/ DIFFERENTIAL Routine 07/15/2024 10:01 AM PROJECT ENGINEER Adenocarcinoma of stomach RESEARCH PROTOCOL [id number] Routine 07/15 10:01 AM PROJECT ENGINEER Adenocarcinoma of stomach MDA AP IHC WORKUP Routine 07/07/2024 12:29 PM PROJECT ENGINEER Adenocarcinoma of stomach POC GLUCOSE SCREEN Routine 06/30/2024 1:23 PM PROJECT ENGINEER PATHOLOGY BIOPSY INTERPRETATION Routine 06/30/2024 12:51 PM PROJECT ENGINEER Adenocarcinoma of stomach DC ESOPHAGOGASTRODUODENOSCOP Y TRANSORAL DIAGNOSTIC 06/30/2024 12:15 PM PROJECT ENGINEER Adenocarcinoma of stomach Case Notes 06/12 per gene to schedule on 06/30, per tor to schedule 06/30 thru lunch last AM case, slot held to offer. LVM and sent mychart to schedule-DC Special Needs AREA MECHANIC CHRIS COMPLETE 06/18.AREA MECHANICARTURO TESFAYEM FOR DAUGHTER WITH DETAILED INSTRUCTIONS FOR PROCEDURE IN ADDITION TO HOLD ON PLAVIX FOR 5 DAYS.AREA MECHANICARTURO HERNANDEZ 1ST CALL 06/16. POC CHEM 8 Routine 06/30/2024 11:10 AM PROJECT ENGINEER POC GLUCOSE SCREEN Routine 06/30/2024 10:52 AM PROJECT ENGINEER POC CHEM 8 Routine 06/29/2024 9:54 AM PROJECT ENGINEER EKG, 12-LEAD (SCHEDULED) Routine 06/29/2024 Adenocarcinoma of stomach PETCT F18 FDG (FLUORODEOXYGLUCOSE) WITH CONTRAST Routine 06/20/2024 12:42 PM PROJECT ENGINEER Adenocarcinoma, NOS of stomach, NOS Malignant neoplasm of overlapping sites of esophagus POC GLUCOSE SCREEN Routine 06/20/2024 11:06 AM PROJECT ENGINEER .CBC Routine 06/20/2024 10:35 AM PROJECT ENGINEER Adenocarcinoma, NOS of stomach, NOS CARCINOEMBRYONIC ANTIGEN Routine 025 10:35 AM PROJECT ENGINEER Adenocarcinoma, NOS of stomach, NOS LACTATE DEHYDROGENASE Routine 06/20/2024 10:35 AM PROJECT ENGINEER Adenocarcinoma, NOS of stomach, NOS PHOSPHORUS LEVEL Routine 06/20/2024 10:35 AM PROJECT ENGINEER Adenocarcinoma, NOS of stomach, NOS MAGNESIUM LEVEL Routine 06/20/2024 10:35 AM PROJECT ENGINEER Adenocarcinoma, NOS of stomach, NOS COMPREHENSIVE METABOLIC PANEL Routine 10:35 AM PROJECT ENGINEER Adenocarcinoma, NOS of stomach, NOS COMPLETE BLOOD COUNT W/ DIFFERENTIAL Routine 06/20/2024 10:35 AM PROJECT ENGINEER Adenocarcinoma, NOS of stomach, NOS .CBC Routine 06/15/2024 10:39 AM PROJECT ENGINEER Adenocarcinoma of stomach CARCINOEMBRYONIC ANTIGEN Routine 025 10:39 AM PROJECT ENGINEER Adenocarcinoma, NOS of stomach, NOS LACTATE DEHYDROGENASE Routine 06/15/2024 10:39 AM PROJECT ENGINEER Adenocarcinoma, NOS of stomach, NOS PHOSPHORUS LEVEL Routine 06/15/2024 10:39 AM PROJECT ENGINEER Adenocarcinoma, NOS of stomach, NOS MAGNESIUM LEVEL Routine 06/15/2024 10:39 AM PROJECT ENGINEER Adenocarcinoma, NOS of stomach, NOS COMPREHENSIVE METABOLIC PANEL Routine 10:39 AM PROJECT ENGINEER Adenocarcinoma of stomach COMPLETE BLOOD COUNT W/ DIFFERENTIAL Routine 06/15/2024 10:39 AM PROJECT ENGINEER Adenocarcinoma of stomach .CBC Routine 06/01/2024 11:10 AM PROJECT ENGINEER Adenocarcinoma of stomach TRANSFERRIN Routine 06/01/2024 11:10 AM PROJECT ENGINEER Iron deficiency anemia, not otherwise specified Adenocarcinoma of stomach FERRITIN Routine 06/01/2024 11:10 AM PROJECT ENGINEER Iron deficiency anemia, not otherwise specified Adenocarcinoma of stomach IRON LEVEL Routine 06/01/2024 11:10 AM PROJECT ENGINEER Iron deficiency anemia, not otherwise specified Adenocarcinoma of stomach COMPREHENSIVE METABOLIC PANEL Routine 11:10 AM PROJECT ENGINEER Adenocarcinoma of stomach COMPLETE BLOOD COUNT W/ DIFFERENTIAL Routine 06/01/2024 11:10 AM PROJECT ENGINEER Adenocarcinoma of stomach POC GLUCOSE SCREEN Routine 05/19/2024 1:52 PM PROJECT ENGINEER PATHOLOGY BIOPSY INTERPRETATION Routine 05/19/2024 1:10 PM PROJECT ENGINEER Adenocarcinoma of stomach DC ESOPHAGOGASTRODUODENOSCOP Y US SCOPE W/ADJ STRXRS 05/19/2024 12:34 PM PROJECT ENGINEER Adenocarcinoma of stomach Case Notes 04/24- WAITING FOR TRIAGE TO PA FOR 05/01- Special Needs AREA MECHANIC [place] Call Completed 04/30/24ad laproscopy on 04/15/24 POC GLUCOSE SCREEN Routine 05/19/2024 12:21 PM PROJECT ENGINEER .CBC Routine 05/18/2024 10:55 AM PROJECT ENGINEER Adenocarcinoma, NOS of stomach, NOS CARCINOEMBRYONIC ANTIGEN Routine 024 10:55 AM PROJECT ENGINEER Adenocarcinoma, NOS of stomach, NOS LACTATE DEHYDROGENASE Routine 05/18/2024 10:55 AM PROJECT ENGINEER Adenocarcinoma, NOS of stomach, NOS PHOSPHORUS LEVEL Routine 05/18/2024 10:55 AM PROJECT ENGINEER Adenocarcinoma, NOS of stomach, NOS MAGNESIUM LEVEL Routine 05/18/2024 10:55 AM PROJECT ENGINEER Adenocarcinoma, NOS of stomach, NOS COMPREHENSIVE METABOLIC PANEL Routine 10:55 AM PROJECT ENGINEER Adenocarcinoma, NOS of stomach, NOS COMPLETE BLOOD COUNT W/ DIFFERENTIAL Routine 05/18/2024 10:55 AM PROJECT ENGINEER Adenocarcinoma, NOS of stomach, NOS .CBC Routine 05/04/2024 11:34 AM PROJECT ENGINEER Adenocarcinoma, NOS of stomach, NOS RESEARCH PROTOCOL [id number] Routine 05/04 11:34 AM PROJECT ENGINEER Adenocarcinoma of stomach CARCINOEMBRYONIC ANTIGEN Routine 024 11:34 AM PROJECT ENGINEER Adenocarcinoma, NOS of stomach, NOS LACTATE DEHYDROGENASE Routine 05/04/2024 11:34 AM PROJECT ENGINEER Adenocarcinoma, NOS of stomach, NOS PHOSPHORUS LEVEL Routine 05/04/2024 11:34 AM PROJECT ENGINEER Adenocarcinoma, NOS of stomach, NOS MAGNESIUM LEVEL Routine 05/04/2024 11:34 AM PROJECT ENGINEER Adenocarcinoma, NOS of stomach, NOS COMPREHENSIVE METABOLIC PANEL Routine 11:34 AM PROJECT ENGINEER Adenocarcinoma, NOS of stomach, NOS COMPLETE BLOOD COUNT W/ DIFFERENTIAL Routine 05/04/2024 11:34 AM PROJECT ENGINEER Adenocarcinoma, NOS of stomach, NOS VERIFY CATHETER TIP PLACEMENT Routine 3:50 PM PROJECT ENGINEER Adenocarcinoma of stomach POC GLUCOSE SCREEN Routine 04/15/2024 3:21 PM PROJECT ENGINEER XR CHEST 1 VW PORTABLE Routine 2:45 PM PROJECT ENGINEER POC GLUCOSE SCREEN Routine 04/15/2024 1:05 PM PROJECT ENGINEER POC GLUCOSE SCREEN Routine 04/15/2024 12:52 PM PROJECT ENGINEER CYTOLOGY NON-TECHNICAL MARKETING CONSULTANT INTERPRETATION Routine 04/15/2024 12:33 PM PROJECT ENGINEER Adenocarcinoma of stomach PATHOLOGY SURGICAL INTERPRETATION Routine 04/15/2024 12:13 PM PROJECT ENGINEER Adenocarcinoma of stomach FL CENTRAL VENOUS PLACE EXCHANGE Routine 04/15/2024 11:40 AM PROJECT ENGINEER Adenocarcinoma of stomach POC GLUCOSE SCREEN Routine 04/15/2024 9:22 AM PROJECT ENGINEER DC INSJ TUNNELED CTR VAD W/SUBQ PORT AGE 5 YR/> 04/15/2024 9:16 AM PROJECT ENGINEER Adenocarcinoma of stomach Special Needs MTL@0800 DC US VASC ACCESS SITS VSL PATENCY NDL ENTRY 04/15/2024 9:16 AM PROJECT ENGINEER Adenocarcinoma of stomach Special Needs MTL@0800 DC FLUORO CENTRAL VENOUS ACCESS DEV PLACEMENT 04/15/2024 9:16 AM PROJECT ENGINEER Adenocarcinoma of stomach Special Needs MTL@0800 DC LAPS ABD PRTM&OMENTUM DX W/WO SPEC BR/WA SPX 04/15/2024 9:16 AM PROJECT ENGINEER Adenocarcinoma of stomach Special Needs MTL@0800 CT ABDOMEN PELVIS W CONTRAST Routine 11:18 AM PROJECT ENGINEER .CBC Routine 04/12/2024 9:04 AM PROJECT ENGINEER LIPASE LEVEL Routine 04/12/2024 9:04 AM PROJECT ENGINEER AMYLASE LEVEL Routine 04/12/2024 9:04 AM PROJECT ENGINEER LACTATE DEHYDROGENASE Routine 04/12/2024 9:04 AM PROJECT ENGINEER FRACTIONATED BILIRUBIN Routine 9:04 AM PROJECT ENGINEER PHOSPHORUS LEVEL Routine 04/12/2024 9:04 AM PROJECT ENGINEER MAGNESIUM LEVEL Routine 04/12/2024 9:04 AM PROJECT ENGINEER COMPREHENSIVE METABOLIC PANEL Routine 9:04 AM PROJECT ENGINEER COMPLETE BLOOD COUNT W/ DIFFERENTIAL Routine 04/12/2024 9:04 AM PROJECT ENGINEER .CBC Routine 04/09/2024 11:09 AM PROJECT ENGINEER Encounter for other preprocedural examination Atherosclerosis of coronary 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, not otherwise specified THYROID STIMULATING HORMONE Routine 03/21 11:09 AM PROJECT ENGINEER Encounter for other preprocedural examination Atherosclerosis of coronary 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, not otherwise specified HEMOGLOBIN A1C Routine 04/09/2024 11:09 AM PROJECT ENGINEER 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 Encounter for other preprocedural examination COMPREHENSIVE METABOLIC PANEL Routine 11:09 AM PROJECT ENGINEER Encounter for other preprocedural examination Atherosclerosis of coronary 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, not otherwise specified COMPLETE BLOOD COUNT W/ DIFFERENTIAL Routine 04/09/2024 11:09 AM PROJECT ENGINEER Encounter for other preprocedural examination Atherosclerosis of coronary 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, not otherwise specified EKG, 12-LEAD (SCHEDULED) Routine 04/09/2024 Adenocarcinoma of stomach Hyperlipidemia, not otherwise specified Encounter for other preprocedural examination Atherosclerosis of coronary 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, not otherwise specified PATHOLOGY OUTSIDE INTERPRETATION Routine 04/02/[address] ABDOMEN AND PELVIS Routine 2023 8:21 AM PROJECT ENGINEER Cancer OSI CHEST Routine 03/23/2024 7:37 PM PROJECT ENGINEER Cancer OSI CT CHEST ABDOMEN PELVIS Routine 08/2023 7:37 PM PROJECT ENGINEER Cancer OSI CHEST Routine 03/23/2024 7:37 PM PROJECT ENGINEER Cancer OSI CT CHEST Routine 03/22/2024 8:21 AM PROJECT ENGINEER Cancer OSI CT ABDOMEN AND PELVIS [...] 6:08 AM CDT Renal mass Special Needs [email or web address]Please collect and send tissue to pathology window with appropriate label. DC LAPAROSCOPY SURG PARTIAL NEPHRECTOMY 01/02/2024 6:08 AM CDT Renal mass Special Needs [email or web address]:Please collect and send tissue to pathology window [...] left adrenal gland Endocrine/[place] lic screening after 10/10/2023 Results * (ABNORMAL) .CBC (10/05/2024 11:15 AM CDT) Only the most recent of14 resultswithin the time period is included. White Blood Cell 6.1 4.1 - 10.5 K/uL 10/05/2024 11:31 AM [facility] Red Blood Cell 3.99(L) 4.30 - 6.04 M/uL 10/05/2024 11:31 AM [facility] Hemoglobin 10.2(L) 13.3 - 17.4 g/dL 10/05/2024 11:31 AM [facility] Hematocrit 33.4(L) 39.5 - 51.8 % 10/05/2024 11:31 AM [facility] Mean Cell Volume 84 82 - 99 fL 10/05/2024 11:31 AM [facility] Mean Cell Hemoglobin 25.6(L) 26.6 - 33.2 pg 10/05/2024 11:31 AM [facility] Mean Cell Hemoglobin Concentration 30.5(L) 31.1 - 35.2 g/dL 10/05/2024 11:31 AM [facility] RDW-SD 46.2 37.5 - 49.7 fL 10/05/2024 11:31 AM [facility] Red Cell Diameter Width 15.2 11.6 - 15.5 % 10/05/2024 11:31 AM [facility] Platelet 176 160 - 397 K/uL 10/05/2024 11:31 AM [facility] Mean Platelet Volume 9.8 9.1 - 12.6 fL 10/05/2024 11:31 AM [facility] INRBC 0.0 0.0 - 0.1 /100 WBC 10/05/2024 11:31 AM [facility] Comment: The INRBC (instrument NRBC) value reflects the enumeration of nucleated red blood cells contained in a 200uL sample of whole blood analyzed by the instrument. This value may differ from the NRBC value reported in a manual differential, which is based on a 100 cell differential. Neutrophil % 70.2 43.2 - 72.7 % 10/05/2024 11:31 AM [facility] Lymphocyte % 18.0 16.8 - 46.2 % 10/05/2024 11:31 AM [facility] Monocyte % 9.2 5.1 - 12.5 % 10/05/2024 11:31 AM [facility] Eosinophil % 2.0 0.4 - 6.3 % 10/05/2024 11:31 AM [facility] Basophil % 0.3 0.2 - 1.4 % 10/05/2024 11:31 AM [facility] IGRE % 0.3 0.1 - 1.5 % 10/05/2024 11:31 AM [facility] Comment:The IGRE% includes M etamyelocytes, Myelocytes and Promyelocytes. Neutrophil Abs 4.26 1.95 - 7.25 K/uL 10/05/2024 11:31 AM [facility] Lymphocyte Abs 1.09 1.01 - 3.24 K/uL 10/05/2024 11:31 AM [facility] Monocyte Abs 0.56 0.24 - 0.85 K/uL 10/05/2024 11:31 AM [facility] Eosinophil Abs 0.12 0.02 - 0.50 K/uL 10/05/2024 11:31 AM [facility] Basophil Abs 0.02 0.02 - 0.09 K/uL 10/05/2024 11:31 AM [facility] IG Abs 0.02 0.01 - 0.12 K/uL 10/05/2024 11:31 AM [facility] Blood Peripheral blood specimen / Unknown Venipuncture / Unknown 10/05/2024 11:15 AM T 10/05/2024 11:26 AM [facility][NOTE 3] Marianela Hutchinson MD LAB BLOOD ORDERABLES Final Re sult DIDIER SEXTON [address] [facility]. [address] [place] [address] * (ABNORMAL) Comprehensive Metabolic Panel (10/05/2024 11:15 AM CDT) Only the most recent of13 resultswithin the time period is included. Bilirubin Total <0.3 0.0 - 1.2 mg/dL 10/05/2024 12:37 PM CDT [facility] Comment:Indocyanine Green (I CG) may cause falsely elevated bilirubin results. Total and direct bilirubin must not be measured from samples containing indocyanine green. False elevation of total bilirubin can be seen in patients with IgG concentrations above 28 g/L. eGFR 101 >=60 mL/min/1. 73 sq. m 10/05/2024 12:37 PM CDT [facility] Tot Protein 6.7 6.4 - 8.3 gm/dL 10/05/2024 12:37 PM CDT [facility] Calcium Level Total 8.9 8.2 - 10.2 mg/dL 10/05/2024 12:37 PM CDT [facility] Alkaline Phosphatase 98 40 - 129 U/L 10/05/2024 12:37 PM CDT [facility] Albumin Level 3.5 3.5 - 5.2 gm/dL 10/05/2024 12:37 PM CDT [facility] AST 24 <=40 U/L 10/05/2024 12:37 PM CDT [facility] ALT 13 <=41 U/L 10/05/2024 12:37 PM CDT [facility] Sodium Level 139 136 - 145 mmol/L 10/05/2024 12:37 PM CDT [facility] Potassium Level 4.2 3.4 - 4.5 mmol/L 10/05/2024 12:37 PM CDT [facility] Chloride 103 98 - 107 mmol/L 10/05/2024 12:37 PM CDT [facility] CO2 26 22 - 29 mmol/L 10/05/2024 12:37 PM CDT [facility] Anion Gap 10 4 - 14 mmol/L 10/05/2024 12:37 PM CDT [facility] Creatinine 0.82 0.67 - 1.17 mg/dL 10/05/2024 12:37 PM CDT [facility] BUN 8 6 - 23 mg/dL 10/05/2024 12:37 PM CDT [facility] Glucose Level 133(H) 70 - 99 mg/dL 10/05/2024 12:37 PM CDT [facility] Comment: Effective 12/14/15, the glucose reference intervals have been updated based on [place] [employer] guidelines (Standards of Medical Care in Diabetes 2016. Diabetes Care 2016; 39: S13-S22). Fasting blood glucose: Normal: 70-99 mg/dL Impaired fasting glucose (increased risk for diabetes or pre-diabetes): 100-125 mg/dL Diabetes mellitus: >/=126 mg/dL Random blood glucose: Normal: 70-199 mg/dL Note: Random glucose >100 mg/dL is associated with increased risk for diabetes. Blood Peripheral blood specimen / Unknown Venipuncture / Unknown 10/05/2024 11:15 AM CDT 10/05/2024 11:26 AM CDT Marianela Hutchinson MD LAB BLOOD ORDERABLES Final Re sult Performing Organization Address City/[facility]/ZIP Co de Phone Number [facility] Unless otherwise noted, all lab tests performed by: Division of Pathology and Laboratory Medicine [address] [place] [phone] * (ABNORMAL) Phosphorus Level (09/07/2024 10:49 AM CDT) Only the most recent of8 resultswithin the time period is included. Phosphorus Level 2.4(L) 2.5 - 4.5 mg/dL 09/07/2024 11:49 AM CDT [facility] Blood Peripheral blood specimen / Unknown Port / Unknown 09/07/2024 10:49 AM CDT 09/07/2024 10:50 AM CDT Gillian Gomez PA-C LAB BLOOD ORDERABLES Final Result Performing Organization Address [facility] Co de Phone Number [facility] Unless otherwise noted, all lab tests performed by: Division of Pathology and Laboratory Medicine [address] [place] [phone] * Magnesium Level (09/07/2024 10:49 AM CDT) Only the most recent of8 resultswithin the time period is included. Magnesium Level 1.8 1.6 - 2.6 mg/dL 09/07/2024 11:49 AM CDT [facility] Blood Peripheral blood specimen / Unknown Port / Unknown 09/07/2024 10:49 AM CDT 09/07/2024 10:50 AM CDT Gillian Gomez PA-C LAB BLOOD ORDERABLES Final Result Performing Organization Address City/[facility]/ZIP Co de Phone Number [facility] Unless otherwise noted, all lab tests performed by: Division of Pathology and Laboratory Medicine [address] [place] [phone] * LDH (09/07/2024 10:49 AM CDT) Only the most recent of8 resultswithin the time period is included. LDH 148 135 - 225 U/L 09/07/2024 11:49 AM CDT [facility] Blood Peripheral blood specimen / Unknown Port / Unknown 09/07/2024 10:49 AM CDT 09/07/2024 10:50 AM CDT Narrative [facility] - 09/07/2024 11:49 AM CDT Results greater than 1651 U/L may not be reliable due to matrix effect with extended dilution as it exceeds the tank insulator rubber's recommended limit. Caution should be exercised when interpreting such values and done in conjunction with clinical context. Gillian Gomez PA-C LAB BLOOD ORDERABLES Final Result [facility] Unless otherwise noted, all lab tests performed by: Division of Pathology and Laboratory Medicine [address] [place] [phone] * CEA (09/07/2024 10:49 AM CDT) Only the most recent of7 resultswithin the time period is included. Carcinoembryonic Antigen 1.9 <=3.8 ng/mL 09/07/2024 12:08 PM CDT [facility] Blood Peripheral blood specimen / Unknown Port / Unknown 09/07/2024 10:49 AM CDT 09/07/2024 10:50 AM CDT Narrative [facility] - 09/07/2024 12:08 PM CDT Reference Ranges (age 20-69 years): Non-smoker: <= 3.8 ng/mL Smoker: <= 5.5 ng/mL This test is measured by electrochemiluminescence immunoassay on Cornelius Nikki immunoassay analyzers. Results obtained in different methods are not interchangeable. Gillian Gomez PA-C LAB BLOOD ORDERABLES Final Result Performing Organization Address City/[facility]/ZIP Co de Phone Number [facility] Unless otherwise noted, all lab tests performed by: Division of Pathology and Laboratory Medicine [address] [place] [phone] * CT Chest Abdomen Pelvis with Contrast (07/15/2024 4:38 PM PROJECT ENGINEER) Anatomical Region Laterality Modality Abdomen, Pelvis, Chest Computed Tomography 07/15/2024 5:39 PM PROJECT ENGINEER Impressions 07/15/2024 9:45 PM PROJECT ENGINEER 1. Redemonstration of diffuse wall thickening [...] and potentially actionable. Narrative 07/15/2024 9:45 PM PROJECT ENGINEER FULL RESULT: Examination: CT CHEST ABDOMEN [...] and potentially actionable. Mary Kay Santamaria APRN IM CT ORDERABLES Final Result * Research Protocol [id number] (07/15/2024 10:01 AM PROJECT ENGINEER) Only the most recent of2 resultswithin the time period is included. Research Protocol Specimen Specimen Collected, Ready for Pickup. 07/15/2024 12:00 PM PROJECT ENGINEER [facility] Blood Venipuncture / Unknown 07/15/2024 10:01 AM PROJECT ENGINEER 07/15/2024 10:10 AM PROJECT ENGINEER us Marianela Hutchinson MD RESEARCH LAB Z CODES Final Re sult [facility] Unless otherwise noted, all lab tests performed by: Division of Pathology and Laboratory Medicine [address] [place] [phone] * IHC Workup (07/07/2024 12:29 PM PROJECT ENGINEER) Tissue 07/07/2024 12:2 9 PM PROJECT ENGINEER 07/07/2024 12:29 PM PROJECT ENGINEER Gillian Gomez PA-C, [facility] BIOMARKER ORDERABLE S Final Result Performing Organization Address [facility] Co de Phone Number [facility] [address] [address], [place] * (ABNORMAL) POC Glucose Screen - Fingerstick (06/30/2024 1:23 PM PROJECT ENGINEER) Only the most recent of23 resultswithin the time period is included. Glucose Screen 168(H) 70 - 99 mg/dL 06/30/2024 1:25 PM PROJECT ENGINEER [facility] POC Sample Type Capillary 06/30/2024 1:25 PM PROJECT ENGINEER [facility] Blood 06/30/2024 1:23 PM PROJECT ENGINEER 06/30/2024 1:25 PM PROJECT ENGINEER Narrative [facility] - 06/30/2024 1:25 PM PROJECT ENGINEER Capillary blood samples, e.g. obtained by [...] POCT ORDERABLES - DE VICE Final Result [facility] Unless otherwise noted, all lab tests performed by: Division of Pathology and Laboratory Medicine [address] [place] [address] * Pathology Biopsy Interpretation (06/30/2024 12:51 PM PROJECT ENGINEER) Only the most recent of2 resultswithin the time period is included. Addendum 1 By immunohistochemistry, approximately 10% of the tumor cells show weakly to moderately cytoplasmic staining for claudin 18. By immunohistochemistry the combined positive score (CPS) for PD-L1 is <1. 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 07/10/2024 8:47 AM [facility] at 1826 PROJECT ENGINEER Gross Description A: Esophagus, lower esophageal ulcer at 37cm: Multiple soft light castillo tissue fragments, 0.7 x 0.6 x 0.1 cm in aggregate, entirely submitted in A1. ET 07/10/2024 8:47 AM [facility] Biomarker Block(s) Block for biomarker testing: A1 07/10/2024 8:47 AM [facility] Disclaimer "Some tests reported here may have been developed and performance characteristics determined by [facility] Pathology and Laboratory Medicine. These tests have not been specifically cleared or approved by the U.S. Food and Drug Administration. If applicable, controls were reviewed and showed appropriate reactivity." 07/10/2024 8:47 AM [facility] Tissue (Esophagus) 06/30/2024 12:51 PM PROJECT ENGINEER 06/30/2024 2:51 PM PROJECT ENGINEER Brandon Galo MD LAB PATHOLOGY ORDERA CARMEL Edited Result - Final [facility] [address] [place] [address], [place] * (ABNORMAL) POC Chem 8 (06/30/2024 11:10 AM [facility]) Only the most recent of2 resultswithin the time period is included. POC Sodium 136(L) 138 - 146 mmol/L 06/30/2024 11:13 AM [facility] POC Potassium 4.5 3.5 - 4.9 mmol/L 06/30/2024 11:13 AM [facility] POC Chloride 100 98 - 109 mmol/L 06/30/2024 11:13 AM [facility] POC VTCO2 27 24 - 29 mmol/L 06/30/2024 11:13 AM [facility] POC Anion Gap 14 10 - 20 mmol/L 06/30/2024 11:13 AM [facility] POC BUN 30(H) 8 - 26 mg/dL 06/30/2024 11:13 AM [facility] POC Creatinine 1.1 0.6 - 1.3 mg/dL 06/30/2024 11:13 AM [facility] Comment:Medications, especia lly hydroxyurea or supplements, such as ascorbate, can interfere with test results causing a falsely and significantly higher result than expected. If a problem is suspected with a patient's result, a sample should be sent to the laboratory for confirmatory testing. POC I Glu 182(H) 70 - 99 mg/dL 06/30/2024 11:13 AM [facility] Comment:Medications, especia lly hydroxyurea or supplements, such as ascorbate, can interfere with test results causing a falsely and significantly higher result than expected. If a problem is suspected with a patient's result, a sample should be sent to the laboratory for confirmatory testing. POC Ionized Calcium 1.26 1.12 - 1.32 mmol/L 06/30/2024 11:13 AM [facility] POC Hct 39.0 38.0 - 51.0 % 06/30/2024 11:13 AM [facility] POC Hgb 13.3 12.0 - 17.0 gm/dL 06/30/2024 11:13 AM [facility] Comment:Hematocrit values fr om the iSTAT [...] standard. POC Sample Type Venous 11:13 AM [facility] POC eGFR 77 >=60 mL/min/1.7 3 sq. m 06/30/2024 11:13 AM [facility] Comment: The eGFRcr is calculated with [...] for CKD. Blood 06/30/2024 11:1 0 AM PROJECT ENGINEER 06/30/2024 11:13 AM [facility] - 06/30/2024 11:13 AM [facility] Method description: The i-STAT is an analyzer [...] POCT ORDERABLES - DE VICE Final Result [facility] Unless otherwise noted, all lab tests performed by: Division of Pathology and Laboratory Medicine [address] [place] [address] * EKG, 12-Lead (Scheduled) (06/29/2024) Only the most recent of2 resultswithin the time period is included. Mary Kay Santamaria APRN ECG ORDERABLES Final R esult Performing Organization Address [facility] Co de Phone Number [facility] * PETCT F18 FDG (Fluorodeoxyglucose) with contrast (06/20/2024 12:42 PM PROJECT ENGINEER) Anatomical Region Laterality Modality Whole Body Positron Emissio n Tomography (PET) 06/20/2024 3:10 PM PROJECT ENGINEER Impressions 06/20/2024 4:38 PM PROJECT ENGINEER Biopsy-proven malignancy in the region of [...] and potentially actionable. Narrative 06/20/2024 4:38 PM PROJECT ENGINEER FULL RESULT: Examination: 18F-FDG-PET/CT with contrast, [...] * Transferrin with TIBC (06/01/2024 11:10 AM PROJECT ENGINEER) Transferrin 211 200 - 360 mg/dL 06/01/2024 12:15 PM PROJECT ENGINEER [facility] Total Iron Binding Capacity 295 250 - 450 mcg/dL 06/01/2024 12:15 PM PROJECT ENGINEER [facility] Blood Peripheral blood specimen / Unknown Venipuncture / Unknown 06/01/2024 11:10 AM PROJECT ENGINEER 06/01/2024 11:23 AM PROJECT ENGINEER Result [facility] Marianela Hutchinson MD LAB BLOOD ORDERABLES Final Re sult [facility] Unless otherwise noted, all lab tests performed by: Division of Pathology and Laboratory Medicine [address] [place] [address] * (ABNORMAL) Iron Level (06/01/2024 11:10 AM PROJECT ENGINEER) Iron Level 38(L) 59 - 158 mcg/dL 06/01/2024 12:15 PM PROJECT ENGINEER [facility] Is patient fasting? No 06/01/2024 12:15 PM PROJECT ENGINEER [facility] Blood Peripheral blood specimen / Unknown Venipuncture / Unknown 06/01/2024 11:10 AM PROJECT ENGINEER 06/01/2024 11:23 AM PROJECT ENGINEER Marianela Hutchinson MD LAB BLOOD ORDERABLES Final Re sult [facility] Unless otherwise noted, all lab tests performed by: Division of Pathology and Laboratory Medicine [address] [place] [address] Unless otherwise noted, all lab tests performed by: Division of Pathology and Laboratory Medicine [address] [place] [phone] * Ferritin Level (06/01/2024 11:10 AM PROJECT ENGINEER) Ferritin Level 59 30 - 400 ng/mL 06/01/2024 12:15 PM PROJECT ENGINEER [facility] Blood Peripheral blood specimen / Unknown Venipuncture / Unknown 06/01/2024 11:10 AM PROJECT ENGINEER 06/01/2024 11:23 AM PROJECT ENGINEER Narrative [facility] - 06/01/2024 12:15 PM PROJECT ENGINEER Reference range established for age 20 - 60 years us Marianela Hutchinson MD LAB BLOOD ORDERABLES Final Re sult [facility] Unless otherwise noted, all lab tests performed by: Division of Pathology and Laboratory Medicine [address] [place] [phone] * Tip Verification Central Vascular Access Device (04/15/2024 3:50 PM PROJECT ENGINEER) Narrative John Fong MD - 04/15/2024 3:50 PM PROJECT ENGINEER John Fong MD 04/15/2024 3:50 PM Central Vascular Access Device Tip Verification Performed by: John Fong MD Authorized by: John Fong MD CV[employer] Properties Date device placed: 04/15/2024 Device placement location: [facility] Catheter Type: Implanted venous port Catheter lumen: Single lumen Vein location: Internal jugular vein Laterality: Right Tip in good position and cleared for infusion John Fong MD IV THERAPY ORDERABLES Final Re sult * XR Chest 1 View Portable (04/15/2024 2:45 PM PROJECT ENGINEER) Anatomical Region Laterality Modality Chest Digital Radiogra phy 04/15/2024 2:50 PM PROJECT ENGINEER Impressions 04/15/2024 2:53 PM PROJECT ENGINEER 1. Right infusion port catheter terminates [...] and potentially actionable. Narrative 04/15/2024 2:53 PM PROJECT ENGINEER FULL RESULT: Examination: XR CHEST 1 [...] IMAGING ORDERAB LES Final Result * Cytology Non-Roll On Man Interpretation (04/15/2024 12:33 PM PROJECT ENGINEER) Gross Description 4 Pap Stain Slides 750 ml. clear yellow fluid Specimen concentrated by cytocentrifugation technique 4 4:07 PM PROJECT ENGINEER [facility] Major Classification [facility]/benign 4 4:07 PM PROJECT ENGINEER [facility] at 1607 PROJECT ENGINEER Diagnosis Peritoneal washing: No metastatic carcinoma identified Reactive mesothelial cells and histiocytes 4 4:07 PM PROJECT ENGINEER [facility] at 1607 PROJECT ENGINEER Retained/Biomark er Testing SR:4S 4 4:07 PM PROJECT ENGINEER [facility] Informational Points Some tests reported here may have been developed and performance characteristics determined by [facility] Pathology and Laboratory Medicine. These tests have not been specifically cleared or approved by the U.S. Food and Drug Administration. 4 4:07 PM PROJECT ENGINEER [facility] Washing (Peritoneal Washing) 04/15/2024 12:33 PM PROJECT ENGINEER 04/15/2024 1:10 PM PROJECT ENGINEER John Fong MD LAB CYTOLOGY ORDERABLES Final Result Performing Organization Address City/State/[facility] Co de Phone Number [facility] [address] [place] [phone], * Pathology Surgical Interpretation (04/15/2024 12:13 PM PROJECT ENGINEER) Only the most recent of2 resultswithin the time period is included. Submitted Clinical History Adenocarcinoma of stomach [C16.9] 04/20/2024 8:13 PM PROJECT ENGINEER [facility] Diagnosis A. Falciform ligament, resection: Fibroadipose tissue, no tumor present 04/20/2024 8:13 PM PROJECT ENGINEER [facility] at 2013 PROJECT ENGINEER Gross Description A: Falciform ligament, falciorm ligament biopsy....or 16: Consists of a fragment of castillo-yellow, lobulated fat (0.8 x 0.6 x 0.5 cm) entirely submitted in cassette A1. EF 04/20/2024 8:13 PM PROJECT ENGINEER [facility] Disclaimer "Some tests reported here may have been developed and performance characteristics determined by [facility] Pathology and Laboratory Medicine. These tests have not been specifically cleared or approved by the U.S. Food and Drug Administration. If applicable, controls were reviewed and showed appropriate reactivity." 04/20/2024 8:13 PM PROJECT ENGINEER [facility] Tissue (Falciform Ligament) 04/15/2024 12:13 PM PROJECT ENGINEER 04/15/2024 1:18 PM PROJECT ENGINEER John Fong MD LAB PATHOLOGY ORDERABLES Final Result [facility] [address] [address], [place] * [place] [facility] Exchange (04/15/2024 11:40 AM PROJECT ENGINEER) Narrative Systemgenerated, Documentation - 04/15/2024 11:40 AM PROJECT ENGINEER This procedure requires no interpretation from the radiologist. John Fong MD IMG FLUOROSCOPY ORDERABLES Fin al Result * CT Abdomen Pelvis with IV Contrast (04/12/2024 11:18 AM PROJECT ENGINEER) Anatomical Region Laterality Modality Abdomen, Pelvis Computed Tomogra phy 04/12/2024 11:5 2 AM PROJECT ENGINEER Impressions 04/12/2024 12:11 PM PROJECT ENGINEER Wall thickening and slight mucosal irregularity [...] and potentially actionable. Narrative 04/12/2024 12:11 PM PROJECT ENGINEER FULL RESULT: Examination: CT ABDOMEN PELVIS [...] Result * Fractionated Bilirubin (04/12/2024 9:04 AM PROJECT ENGINEER) Bilirubin Direct 04/12/20 9:47 AM PROJECT ENGINEER [facility] Comment: Direct and indirect bilirubin will not be reported when Total bilirubin result is <0.3 mg/dL Indocyanine Green (ICG) may cause falsely elevated bilirubin results. Total and direct bilirubin must not be measured from samples containing indocyanine green. Bilirubin Indirect 2023 9:47 AM PROJECT ENGINEER [facility] Comment:Direct and indirect bilirubin will not be reported when Total bilirubin result is <0.3 mg/dL Bilirubin Total <0.3 0.0 - 1.2 mg/dL 04/12/2024 9:47 AM PROJECT ENGINEER [facility] Comment: Direct and indirect bilirubin will not [...] Unknown Venipuncture / Unknown 04/12/2024 9:04 AM PROJECT ENGINEER 04/12/2024 9:08 AM PROJECT ENGINEER us Nghia Zhu MD LAB BLOOD ORDERABLES Final Resu lt Performing Organization Address [facility] Co de Phone Number [facility] Unless otherwise noted, all lab tests performed by: Division of Pathology and Laboratory Medicine [address] [place] [address] * (ABNORMAL) Lipase (04/12/2024 9:04 AM PROJECT ENGINEER) Lipase Level 311(H) 13 - 60 U/L 04/12/2024 10:09 AM PROJECT ENGINEER [facility] Blood Peripheral blood specimen / Unknown Venipuncture / Unknown 04/12/2024 9:04 AM PROJECT ENGINEER 04/12/2024 9:08 AM PROJECT ENGINEER Narrative [facility] - 04/12/2024 10:09 AM PROJECT ENGINEER Reference range established based on adult population us Nghia Zhu MD LAB BLOOD ORDERABLES Final Resu lt [facility] Unless otherwise noted, all lab tests performed by: Division of Pathology and Laboratory Medicine [address] [place] [address] * (ABNORMAL) Amylase (04/12/2024 9:04 AM PROJECT ENGINEER) Amylase Level 171(H) 28 - 100 U/L 04/12/2024 9:47 AM PROJECT ENGINEER [facility] Blood Peripheral blood specimen / Unknown Venipuncture / Unknown 04/12/2024 9:04 AM PROJECT ENGINEER 04/12/2024 9:08 AM PROJECT ENGINEER Nghia Zhu MD LAB BLOOD ORDERABLES Final Resu lt Performing Organization Address City/[facility] Co de Phone Number [facility] Unless otherwise noted, all lab tests performed by: Division of Pathology and Laboratory Medicine [address] [place] [id number] * TSH (04/09/2024 11:09 AM PROJECT ENGINEER) Pathologist [facility] Thyroid Stimulating Hormone 1.53 0.27 - 4.20 mcunit/mL 04/09/2024 12:23 PM PROJECT ENGINEER [facility] Blood Peripheral blood specimen / Unknown Venipuncture / Unknown 04/09/2024 11:09 AM PROJECT ENGINEER 04/09/2024 11:19 AM PROJECT ENGINEER Ceci Nicholson MD LAB BLOOD ORDERABLES Final Resu lt Performing Organization Address City/[facility] de Phone Number [facility] Unless otherwise noted, all lab tests performed by: Division of Pathology and Laboratory Medicine [address] [place] [id number] * (ABNORMAL) Hemoglobin A1c (04/09/2024 11:09 AM PROJECT ENGINEER) Only the most recent of2 resultswithin the time period is included. Hemoglobin A1c 7.0(H) 4.3 - 5.6 % 04/09/2024 12:14 PM PROJECT ENGINEER [facility] Blood Peripheral blood specimen / Unknown Venipuncture / Unknown 04/09/2024 11:09 AM PROJECT ENGINEER 04/09/2024 11:19 AM PROJECT ENGINEER Narrative [facility] - 04/09/2024 12:14 PM PROJECT ENGINEER HbA1c values >=6.5% are diagnostic of diabetes mellitus. Diagnosis should be confirmed by repeat testing. Therapeutic Action suggested: >8.0% HbA1c; Goal of therapy: <7.0% HbA1c us Ceci Nicholson MD LAB BLOOD ORDERABLES Final Resu lt [facility] Unless otherwise noted, all lab tests performed by: Division of Pathology and Laboratory Medicine [address] [place] [address] * Pathology Outside Interpretation (04/02/2024) Materials Received Accession#, Stained, Block, Unstained Collected Received A. [id number], 20 SS, 0 BLOCKS, 0 USS 04/02/2024 04/22/2024 04/22/2024 5:36 PM PROJECT ENGINEER [facility] Diagnosis Outside ([id number], 20 SS, 0 BLOCKS, 0 USS, collected [...] ADENOCARCINOMA WITH SIGNET CELL FEATURES. See comment. 04/22/2024 5:36 PM PROJECT ENGINEER [facility] at [address]36 PROJECT ENGINEER Comment Part A. There is no evidence of malignancy on H&E and immunohistochemical stain for Cytokeratin AE1/AE3. Of note, the biopsy may not be escrow representative of the entire lesion. Please correlate [...] immunohistochemistry: Negative (Score: 0) 04/22/2024 5:36 PM PROJECT ENGINEER [facility] Biomarker Block(s) Block for biomarker testing: C1 Normal block: N/A 04/22/2024 5:36 PM PROJECT ENGINEER [facility] Disclaimer "Some tests reported here may have been developed and performance characteristics determined by [facility] Pathology and Laboratory Medicine. These tests have not been specifically cleared or approved by the U.S. Food and Drug Administration. If applicable, controls were reviewed and showed appropriate reactivity." 04/22/2024 5:36 PM PROJECT ENGINEER [facility] Tissue 04/02/2024 04/22/2024 6:4 0 AM PROJECT ENGINEER us Sybil Edmonds MD LAB PATHOLOGY ORDERABLES Final R esult [id number] [place] [address], [place] * OSI CT Abdomen and Pelvis (04/01/2024 8:21 AM PROJECT ENGINEER) Only the most recent of2 resultswithin the time period is included. Narrative Systemgenerated, Documentation - 04/27/2024 8:22 AM PROJECT ENGINEER Study acquired at another institution. For comparison only. No [facility] originated interpretation requested or available. us Eagle Zhu DO IMG OUTSIDE IMAGE ORDERAB LES Final Result * OSI CT CHEST ABDOMEN PELVIS (03/23/2024 7:37 PM PROJECT ENGINEER) Narrative Systemgenerated, Documentation - 04/09/2024 7:37 PM PROJECT ENGINEER Study acquired at another institution. For comparison only. No [facility] originated interpretation requested or available. us Margoth Souza MD IMG OUTSIDE IMAGE ORDERABLES Fin al Result * OSI Chest (03/23/2024 7:37 PM PROJECT ENGINEER) Only the most recent of4 resultswithin the time period is included. Narrative Systemgenerated, Documentation - 04/09/2024 7:37 PM PROJECT ENGINEER Study acquired at another institution. For comparison only. No [facility] originated interpretation requested or available. us Margoth Souza MD IMG OUTSIDE IMAGE ORDERABLES Fin al Result * OSI CT Chest (03/22/2024 8:21 AM PROJECT ENGINEER) Narrative Systemgenerated, Documentation - 04/27/2024 8:21 AM PROJECT ENGINEER Study acquired at another institution. For comparison only. No [facility] originated interpretation requested or available. us [facility] Regan Zhu DO IMG OUTSIDE IMAGE ORDERAB LES Final Result * (ABNORMAL) Basic Metabolic Panel- Total Calcium (01/03/2024 2:59 PM CDT) Only the most recent of7 resultswithin the time period is included. eGFR 71 >=60 mL/min/1. 73 sq. m 01/03/2024 3:44 PM CDT [facility] - 10.2 mg/dL 01/03/2024 3:44 PM CDT [facility] Sodium Level 139 136 - 145 mmol/L 01/03/2024 3:44 PM CDT [facility] Potassium Level 3.9 3.4 - 4.5 mmol/L 01/03/2024 3:44 PM CDT [facility] Chloride 103 98 - 107 mmol/L 01/03/2024 3:44 PM CDT [facility] CO2 28 22 - 29 mmol/L 01/03/2024 3:44 PM CDT [facility] Anion Gap 8 4 - 14 mmol/L 01/03/2024 3:44 PM CDT [facility] Creatinine 1.18(H) 0.67 - 1.17 mg/dL 01/03/2024 3:44 PM CDT [facility] BUN 15 6 - 23 mg/dL 01/03/2024 3:44 PM CDT [facility] Glucose Level 137(H) 70 - 99 mg/dL 01/03/2024 3:44 PM CDT [facility] Comment: Effective 12/14/15, the glucose reference intervals have been updated based on [place] [employer] guidelines (Standards of Medical Care [...] Mcmanus APRN LAB BLOOD ORDERABLES Final Result [facility] Unless otherwise noted, all lab tests performed by: Division of Pathology and Laboratory Medicine [address] [place] [address] * Zinc Transporter 8 Ab (01/03/2024 4:22 AM CDT) Pathologist [facility] Zinc T8 AB <15.0 <15.0 U/mL 01/15/2024 11:18 AM CDT [facility] Comment: ADDITIONAL INFORMATION This test has been modified from the tank insulator rubber's instructions. Its performance characteristics were determined by [facility] in a manner consistent with CLIA requirements. This test has not been cleared or approved by the U.S. Food and Drug Administration. Test Performed by: [address] [address] Branch Service Associate: Mary Jane Topete Ph.D.; CLIA# [id number] Blood Peripheral blood specimen / Unknown Venipuncture / Unknown 01/03/2024 4:22 AM CDT 01/03/2024 4:55 AM CDT Alicia Mcmanus APRN LAB BLOOD ORDERABLES Final Result Performing Organization Address [facility] Co de Phone Number [facility] * Islet Antigen 2 (IA-2) Antibody (01/03/2024 4:22 AM CDT) IA-2 Antibody 0.00 <=0.02 nmol/L 01/07/2024 12:20 AM CDT [facility] Comment: ADDITIONAL INFORMATION This test was developed and its performance characteristics determined by [facility] in a manner consistent with CLIA requirements. This test has not been cleared or approved by the U.S. Food and Drug Administration. Test Performed by: [address] [address] Branch Service Associate: Mary Jane Topete Ph.D.; CLIA# [id number] Blood Peripheral blood specimen / Unknown Venipuncture / Unknown 01/03/2024 4:22 AM CDT 01/03/2024 4:55 AM CDT Alicia Mcmanus APRN LAB BLOOD ORDERABLES Final Result [facility] * GREG Ab Assay (01/03/2024 4:22 AM CDT) Pathologist [facility] GAD65 Ab-Maxwell 0.00 <=0.02 nmol/L 01/07/2024 12:01 AM CDT [facility] Comment: ADDITIONAL INFORMATION This test was developed and its performance characteristics determined by [facility] in a manner consistent with CLIA requirements. This test has not been cleared or approved by the U.S. Food and Drug Administration. Test Performed by: [address] [address] Branch Service Associate: Mary Jane Topete Ph.D.; CLIA# [id number] Blood Peripheral blood specimen / Unknown Venipuncture / Unknown 01/03/2024 4:22 AM CDT 01/03/2024 4:55 AM CDT us Alicia Mcmanus APRN LAB BLOOD ORDERABLES Final Result [facility] * Insulin Ab (01/03/2024 4:22 AM CDT) Pathologist [facility] Insulin Ab-Maxwell 0.00 0.00 - 0.02 nmol/L 01/06/2024 5:14 PM CDT [facility] Comment: ADDITIONAL INFORMATION This test was developed and its performance characteristics determined by [facility] in a manner consistent with CLIA requirements. This test has not been cleared or approved by the U.S. Food and Drug Administration. Test Performed by: [facility] - [address] [address] Branch Service Associate: Mary Jane Topete Ph.D.; CLIA# [id number] Blood Peripheral blood specimen / Unknown Venipuncture / Unknown 01/03/2024 4:22 AM CDT 01/03/2024 4:55 AM CDT us Alicia Mcmanus APRN LAB BLOOD ORDERABLES Final Result [facility] * C Peptide (01/03/2024 4:22 AM CDT) Pathologist [facility] C-Peptide 2.12 1.10 - 4.40 ng/mL 01/03/2024 5:48 AM CDT [facility] Blood Peripheral blood specimen / Unknown Venipuncture / Unknown 01/03/2024 4:22 AM CDT 01/03/2024 4:55 AM CDT Alicia Mcmanus APRN LAB BLOOD ORDERABLES Final Result [facility] Unless otherwise noted, all lab tests performed by: Division of Pathology and Laboratory Medicine [address] [place] [address] * (ABNORMAL) Hemogram (01/02/2024 7:20 PM CDT) [facility] White Blood Cell 13.8(H) 4.1 - 10.5 K/uL 01/02/2024 7:33 PM CDT [facility] Red Blood Cell 4.74 4.30 - 6.04 M/uL 01/02/2024 7:33 PM CDT [facility] Hemoglobin 12.2(L) 13.3 - 17.4 g/dL 01/02/2024 7:33 PM CDT [facility] Hematocrit 38.6(L) 39.5 - 51.8 % 01/02/2024 7:33 PM CDT [facility] Mean Cell Volume 81(L) 82 - 99 fL 01/02/2024 7:33 PM CDT [facility] Mean Cell Hemoglobin 25.7(L) 26.6 - 33.2 pg 01/02/2024 7:33 PM CDT [facility] Mean Cell Hemoglobin Concentration 31.6 31.1 - 35.2 g/dL 01/02/2024 7:33 PM CDT [facility] RDW-SD 39.1 37.5 - 49.7 fL 01/02/2024 7:33 PM CDT [facility] Red Cell Diameter Width 13.1 11.6 - 15.5 % 01/02/2024 7:33 PM CDT [facility] Platelet 291 160 - 397 K/uL 01/02/2024 7:33 PM CDT [facility] Mean Platelet Volume 9.7 9.1 - 12.6 fL 01/02/2024 7:33 PM CDT [facility] INRBC 0.0 0.0 - 0.1 /100 WBC 01/02/2024 7:33 PM CDT [facility] [...] PRICE LAB BLOOD ORDERABLES Final R esult [facility] Unless otherwise noted, all lab tests performed by: Division of Pathology and Laboratory Medicine [address] [place] [address] * (ABNORMAL) Beta Hydroxy Quant (01/02/2024 7:20 PM CDT) Only the most recent of2 resultswithin the time period is included. Beta-Hydroxybuty rate 0.85(H) 0.02 - 0.27 mmol/L 01/02/2024 8:01 PM CDT [facility] Is patient fasting? No 01/02/2024 8:01 PM CDT [facility] Comment:A fasting specimen i s recommended and results obtained from non-fasting specimens should be interpreted with caution using reference ranges based on fasting status and in conjunction with clinical context. Blood Peripheral blood specimen / Unknown Venipuncture / Unknown 01/02/2024 7:20 PM CDT 01/02/2024 7:24 PM CDT Narrative [facility] - 01/02/2024 8:01 PM CDT Reference range based on fasting. us Alicia Mcmanus APRN LAB BLOOD ORDERABLES Final Result [facility] Unless otherwise noted, all lab tests performed by: Division of Pathology and Laboratory Medicine [address] [place] [address] * (ABNORMAL) ABG+ (ABG, Na, K, Cl, Glu, Hgb, Hct, Lactate, Ion Ca) (01/02/2024 10:38 AM CDT) Only the most recent of2 resultswithin the time period is included. Sodium Arterial 140 136 - 146 mmol/L 01/02/2024 10:44 AM CDT [facility] Potassium Arterial 3.7 3.4 - 4.5 mmol/L 01/02/2024 10:44 AM CDT [facility] Chloride Arterial 103 98 - 106 mmol/L 01/02/2024 10:44 AM CDT [facility] Glucose Arterial 270(H) 70 - 105 mg/dL 01/02/2024 10:44 AM CDT [facility] Hgb Art 12.9(L) 13.5 - 17.5 g/dL 01/02/2024 10:44 AM CDT [facility] Hematocrit Arterial 40(L) 42 - 52 % 01/02/2024 10:44 AM CDT [facility] Lactate Arterial 1.0(H) 0.4 - 0.8 mmol/L 01/02/2024 10:44 AM CDT [facility] Calcium Ionized Arterial 1.14(L) 1.15 - 1.29 mmol/L 01/02/2024 10:44 AM CDT [facility] pH Arterial 7.35 7.35 - 7.45 01/02/2024 10:44 AM CDT [facility] P CO2 Arterial 42.9 35.0 - 48.0 mmHg 01/02/2024 10:44 AM CDT [facility] P O2 Arterial 164(H) 83 - 108 mmHg 01/02/2024 10:44 AM CDT [facility] Bicarbonate Arterial 24 21 - 28 mmol/L 01/02/2024 10:44 AM T [facility] WB Anion Gap 13 7 - 16 mmol/L 01/02/2024 10:44 AM CDT [facility] Base Excess Arterial -2 -2 - 3 mmol/L 01/02/2024 10:44 AM T [facility] Oxygen Saturation Arterial 99 95 - 99 % 01/02/2024 10:44 AM CDT [facility] Oxygen FLOW Rate/ FiO2 01/02/2024 10:44 AM T [facility] O2 Therapy 01/02/2024 10:44 AM T [facility] Art Kirill Test Not Applicable (Arterial Line Draw) 01/02/2024 10:44 AM T [facility] Blood Arterial blood specimen / Unknown Arterial Line / Unknown 01/02/2024 10:38 AM CDT 01/02/2024 10:41 AM CDT Narrative [facility] - 01/02/2024 10:44 AM CDT The ABL90 [...] MD LAB BLOOD ORDERABLES Final Re sult [facility] Unless otherwise noted, all lab tests performed by: Division of Pathology and Laboratory Medicine [facility] [place] [address] * Intraoperative Ultrasound - For Image Storage [...] EXP DATE 01/22/2024 12/23/2023 2:19 PM CDT [facility] - TRANSFUSION SERVICES Blood Peripheral blood specimen / Unknown Venipuncture / Unknown 12/23/2023 8:51 AM CDT 12/23/2023 9:00 AM CDT us Margoth Souza MD BLOOD BANK TEST ORDERABLES Final Result [facility] - TRANSFUSION SERVICES [facility] [address] [facility] [address] [place] [address] * Preop Updated Expiration (12/23/2023 8:51 AM CDT) PREOP STATUS 01/02/2024 11:33 PM CDT [facility] - TRANSFUSION SERVICES PREOP EXP DATE 01/02/2024 01/02/2024 11:33 PM CDT [facility] - TRANSFUSION SERVICES Blood Peripheral blood specimen / Unknown Venipuncture / Unknown 12/23/2023 8:51 AM CDT 12/23/2023 9:00 AM CDT us Margoth Souza MD BLOOD BANK TEST ORDERABLES Final Result [facility] - TRANSFUSION SERVICES [facility] [address] [place] [address] * (ABNORMAL) Urinalysis with Reflex Culture (12/23/2023 8:51 AM CDT) Urine Appearance Clear Clear 12/23/19 9:33 AM CDT [facility] Urine Color Straw Colorless, Straw, Yellow, Dark Yellow, Straw-Yellow 12/23/2023 9:33 AM CDT [facility] Urine Specific [place] 1.032 1.003 - 1.035 12/23/2023 9:33 AM CDT [facility] Urine pH 6.0 5.0 - 8.0 12/23/2023 9:33 AM CDT [facility] Urine Glucose >=1000(A) Negative mg/dL 12/23/2023 9:33 AM CDT [facility] Urine Ketones Negative Negative mg/dL 12/23/2023 9:33 AM CDT [facility] Urine Blood Negative Negative 12/23/2023 9:33 AM CDT [facility] Urine Protein 30(A) Negative mg/dL 12/23/2023 9:33 AM CDT [facility] Urine Bilirubin Negative Negative 9:33 AM CDT [facility] Urine Urobilinogen Negative Negative 12/23/2023 9:33 AM CDT [facility] Urine Nitrite Negative Negative 12/23/2023 9:33 AM CDT [facility] Urine Leukocyte Esterase Negative Negative 12/23/2023 9:33 AM CDT [facility] Urine Mucous Not Seen Not Seen, Trace /HPF 12/23/2023 9:33 AM CDT [facility] Urine Bacteria Not Seen Not Seen /HPF 12/23/2023 9:33 AM CDT [facility] Urine Squamous Epithelial Cells OCC Not Seen, OCC, Rare /HPF 12/23/2023 9:33 AM CDT [facility] Urine WBC <1 <=2 /HPF 12/23/2023 9:33 AM CDT [facility] Urine RBC 1 <=2 /HPF 12/23/2023 9:33 AM CDT [facility] Urine Voided urine specimen / Unknown Non-blood Collection / Unknown 12/23/2023 8:51 AM CDT 12/23/2023 9:10 AM CDT Narrative [facility] - 12/23/2023 9:33 AM CDT Some reporting parameters within the Urinalysis test have changed due to the implementation of new instrumentation in the [facility], allowing greater sensitivity of measurement. Urinalysis results reported by the [facility] using existing instrumentation, as well as Urinalysis testing performed manually or by back-up methodology at the main [place], will remain relatively unchanged. New reporting parameters and units will now be reported for all campuses. Margoth Souza MD URINE ORDERABLES Final Result [facility] Unless otherwise noted, all lab tests performed by: Division of Pathology and Laboratory Medicine [address] [place] [id number] * 30-Day Pre-Op Type and Screen (12/23/2023 8:51 AM CDT) ABORh O POS 12/23/2023 8:45 AM CDT [facility] - TRANSFUSION SERVICES ABSC Negative 12/23/2023 8:45 AM CDT [facility] - TRANSFUSION SERVICES BB Criteria Met Criteria met 12/23/2023 8:45 AM CDT [facility] - TRANSFUSION SERVICES Historical Record Check Complete 12/23/2023 8:45 AM CDT [facility] TRANSFUSION SERVICES Blood Peripheral blood specimen / Unknown Venipuncture / Unknown 12/23/2023 8:51 AM CDT 12/23/2023 9:00 AM CDT Margoth Souza MD BLOOD BANK TEST ORDERABLES Final Result [facility] - TRANSFUSION SERVICES [facility] Transfusion Services [address] [facility] [address] [place] [address] * TMP Interpretation Exception PreOp Expiration (12/23/2023 8:51 AM CDT) TMP Exception 12/24/2023 10:47 AM CDT [facility] - TRANSFUSION SERVICES TMP Signature . 12/24/2023 10:[address] [facility] TRANSF[facility]ION [facility] Blood Peripheral blood specimen / Unknown Venipuncture / Unknown 12/23/2023 8:51 AM CDT 12/23/2023 9:00 AM CDT Margoth Souza MD BLOOD BANK TEST ORDERABLES Final Result Performing Organization Address City/[facility]/ZIP Co de Phone Number [facility] - TRANSFUSION SERVICES [facility] [address] [facility] [address] [place] [address] * ACTH (12/09/2023 9:45 AM CDT) ACTH 22 7 - 63 pg/mL 12/09/2023 12:19 PM CDT [facility] Blood Peripheral blood specimen / Unknown Venipuncture / Unknown 12/09/2023 9:45 AM CDT 12/09/2023 9:52 AM CDT Narrative [facility] - 12/09/2023 12:19 PM CDT Reference range established based on adult population (7 - 10am draws). No established reference values for p.m. draws. Results greater than 1826 pg/mL may not be reliable due to matrix effect with extended dilution as it exceeds the tank insulator rubber's recommended limit. ACTH reference intervals are established for the morning hours from 7-10 am. Due to the circadian rhythm of ACTH levels in plasma, the sample collection time must be noted. Caution should be exercised when interpreting such values and done in conjunction with clinical context. Veronica Del Castillo APRN LAB BLOOD ORDERABLES Final Result [facility] Unless otherwise noted, all lab tests performed by: Division of Pathology and Laboratory Medicine [address] [place] [address] * DHEA Sulfate (12/09/2023 9:45 AM CDT) Pathologist [facility] [place] [id number] 20 - 299 mcg/dL 12/10/2023 12:10 PM CDT [facility] Comment: Test Performed by: [facility] [address] [place] [address] Branch Service Associate: Mary Jane Topete Ph.D.; CLIA# [id number] Blood Peripheral blood specimen / Unknown Venipuncture / Unknown 12/09/2023 9:45 AM CDT 12/09/2023 9:56 AM CDT Veronica Del Castillo [employer] LAB BLOOD ORDERABLES Final Result [facility] * Cortisol, Total (12/09/2023 9:45 AM CDT) Pathologist [facility] Cortisol 11.39 4.82 - 19.50 mcg/dL 12/09/2023 11:00 AM CDT [facility] Blood Peripheral blood specimen / Unknown Venipuncture / Unknown 12/09/2023 9:45 AM CDT 12/09/2023 9:55 AM CDT Narrative [facility] - 12/09/2023 11:00 AM [...] 2.47 - 11.9 mcg/dL Veronica Del Castillo [employer] LAB BLOOD ORDERABLES Final Result [facility] Unless otherwise noted, all lab tests performed by: Division of Pathology and Laboratory Medicine [address] [place] [address] after 10/10/2023 [place] [id number] MEDICARE PART A AND B Advance Directives * Full Code (Latest Code Status on File) Date Activated Date Inactivated Comments 10/02/2024 12:32 PM Update based on Advanced Directive Documentation * Full Code Date Activated Date Inactivated Comments 04/12/2024 1:24 PM 04/12/2024 5:43 PM * Full Code Date Activated Date Inactivated Comments 01/02/2024 1:48 PM 01/03/2024 7:17 PM Care Teams Vice President Pharmacy Relationship Specialty Start Date End Date Margoth Souza MD [address] [place] [phone] [email or web address] PCP - General Urology 07/30/23 04/14/24 Marko Eaglerob Spears DO [address] [place] [address] [phone] [email or web address] PCP - External Primary Care Provider Family Practice 04/08/24 Marianela Hutchinson MD [address] [place] [phone] [email or web address] PCP - General Gastrointestinal Medical Oncology 05/04/24 Mary Jane Cassidy MD [address] [place] [phone] [email or web address] Consulting Physician Endocrinology 12/09/23 Barry He MD [address] [place] [phone] [email or web address] Consulting Physician Internal Medicine 12/23/23 Patience Hunt MD [address] [place] [phone] [email or web address] Consulting Physician Endocrinology 12/31/23 Marianela Hutchinson MD [address] [place] [phone] [email or web address] Consulting Physician Gastrointestinal Medical Oncology 04/13/24 Margoth Souza MD [address] [place] [phone] [email or web address] Consulting Physician Urology 04/15/24 Ceci Nicholson MD [address] [place] [phone] [email or web address] Consulting Physician Internal Medicine 04/09/24 Sigifredo Davenport MD [address] [place] [address] [phone] [email or web address] Consulting Physician Internal Medicine 06/29/24 Abilio Ng, PAJeanC [address] [place] [phone] Physician Vp Cardiovascular Service Line Interventional Radiology 10/02/23
[2024-10-09] MEDS ORDERED: NA CHLORIDE 0.9% 0 ML ONE (03:18)
[2024-10-09] MEDS ORDERED: METOCLOPRAMIDE 10 MG/2mL INJ ONE (03:18)
[2024-10-09] MEDS ORDERED: NA CHLORIDE 0.9% 50 ML ONE (04:03)
[2024-10-09] MEDS ORDERED: PROMETHAZINE INJ 25 MG/ML AMP ONE ×2 (04:03→05:10)
--- NOTE | 2024-10-09 06:34 | ER ---
Nurse's Notes [facility] Name: Zeke Mackay Sr Age: 59 yrs Sex: Male : 1965 Arrival Date: 10/09/2024 Time: 02:29 Bed 20 Private MD: Diagnosis: Nausea Presentation: 10/09 02:40 Chief complaint: Patient states: FEELING NAUSEOUS , TOOK PROMETHAZINE LIKE AN HOUR AGO. ha1 SYMPTOMS NOT IMPROVING. 02:40 Coronavirus screen: Client denies travel out of the [place] in the last 14 days. Ebola ha1 Screen: No symptoms or risks identified at this time. Initial Sepsis Screen: Does the patient meet any 2 criteria? No. Patient's initial sepsis screen is negative. Does the patient have a suspected source of infection? No. Patient's initial sepsis screen is negative. Risk Assessment: Do you want to hurt yourself or someone else? Patient reports no desire to harm self or others. 02:40 Method Of Arrival: Ambulatory 1 02:40 Acuity: RICKEY 4 ha1 03:30 Onset of symptoms was October 09, 2024. [facility] Triage Assessment: 02:40 General: Appears uncomfortable, Behavior is cooperative. Pain: Complains of pain in ha1 abdomen Pain currently is 4 out of 10 on a pain scale. Quality of pain is described as burning. Neuro: Level of Consciousness is awake, alert, obeys commands, Oriented to person, place, time, situation. Cardiovascular: Capillary refill < 3 seconds Patient's skin is warm and dry. Respiratory: Airway is patent Respiratory effort is even, unlabored, Respiratory pattern is regular, symmetrical. GI: Reports lower abdominal pain, upper abdominal pain, nausea. 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 - Infectious Disease History:: Denies. - Social history:: Smoking status: Patient uses street drugs, marijuana. - Family history:: not pertinent. Screenin:05 [facility] ED Fall Risk Assessment (Adult). Abuse screen: Denies threats or abuse. Denies ha1 injuries from another. Nutritional screening: No deficits noted. Tuberculosis screening: No symptoms or risk factors identified. 03:27 [facility] ED Fall Risk Assessment (Adult) History of falling in the last 3 months, hm5 including since admission No falls in past 3 months (0 pts) Confusion or Disorientation No (0 pts) Intoxicated or Sedated No (0 pts) Impaired Gait No (0 pts) Mobility Assist Device Used No (0 pt) Altered Elimination No (0 pt) Score/Fall Risk Level 0 - 2 = Low Risk Oriented to surroundings, Maintained a safe environment, Hourly rounding (assess needs \T\ fall precautionary measures) done. Assessment: 03:27 General: Appears distressed, uncomfortable, well groomed, well nourished, Behavior is 5 calm, cooperative, restless. Pain: Complains of pain in abdomen Pain currently is 5 out of 10 on a pain scale. Also complains of nausea. Neuro: No deficits noted. Cardiovascular: No deficits noted. Respiratory: No deficits noted. GI: Reports upper abdominal pain, nausea, vomiting. GI: Reports upper abdominal pain, nausea, vomiting. : No deficits noted. No signs and/or symptoms were reported regarding the genitourinary system. EENT: No deficits noted. Derm: No deficits noted. No signs and/or symptoms reported regarding the dermatologic system. Musculoskeletal: No deficits noted. No signs and/or symptoms reported regarding the musculoskeletal system. Vital Signs: 02:40 BP 205 / 100; Pulse 87; Resp 19 S; Temp 98.2(T); Pulse Ox 100% on R/A; Weight 83.2 kg; ha1 Height 5 ft. 11 in. ; 04:11 BP 184 / 77; Pulse 83; Resp 18; Pulse Ox 98% on R/A; hm5 05:26 BP 179 / 83; Pulse 76; Resp 18; Pulse Ox 98% on R/A; hm5 06:58 BP 171 / 75; Pulse 86; Resp 17; Pulse Ox 99% on R/A; hm5 02:40 Body Mass Index 25.58 (83.20 kg, 180.34 cm) 1 ED Course: 02:32 Patient arrived in ED. [email or web address] 02:39 Sylvain Leger MD is Attending Physician. rt 03:02 Mary Kay Garcia, RN is Primary Nurse. [facility] 03:03 Triage completed. ha1 03:20 No provider procedures requiring assistance completed. Accessed Port-a-Cath. using [facility] accessed w/ # 20 Gonzalez needle, ,sterile technique, per hospital protocol. Clean \T\ dry. Dressing intact. Good blood return. Flushes easily. 03:27 Arm band placed on right wrist. 5 03:31 Patient has correct armband on for positive identification. Bed in low position. Call [facility] light in reach. Side rails up X 1. Provided Education on: plan of care. 03:31 Pulse ox on. NIBP on. 5 06:58 IV discontinued, intact, bleeding controlled, No redness/swelling at site. Pressure [facility] dressing applied, port-a-cath de-accessed after heparin flush. Administered Medications: 03:25 Drug: metoCLOPramide IVP 10 mg IVP once; over 1 to 2 minutes Route: IVP; Site: [facility] Port-a-cath; 04:11 Follow up: Response: No adverse reaction; Nausea unchanged [facility] 04:09 Drug: Promethazine IM 12.5 mg IM once Route: IM; Site: right deltoid; [facility] 05:24 Follow up: Response: No adverse reaction; Nausea is decreased [facility] 05:24 Drug: Promethazine IM 12.5 mg IM once Route: IM; Site: left deltoid; [facility] 05:49 Follow up: Response: No adverse reaction; Nausea is decreased [facility] Medication: 03:31 VIS not applicable for this client. [facility] Outcome: 06:33 Discharge ordered by . rt 06:59 Discharged to home ambulatory, [facility] 06:59 Condition: stable 06:59 Discharge instructions given to patient, Instructed on discharge instructions, follow up and referral plans. Demonstrated understanding of instructions, follow-up care, 07:01 Patient left the ED. [facility] Signatures: Pratik Adriana [email or web address] Moni Douglas RN RN [facility] Sylvain Leger MD MD rt Mary Kay Garcia, ARTURO RN [facility]
--- NOTE | 2024-10-09 06:34 | EDPHYS ---
Physician Documentation [facility] Name: Zeke Mackay Sr Age: 59 yrs Sex: Male : 1965 Arrival Date: 10/09/2024 Time: 02:29 Bed 20 Private MD: ED Physician Sylvain Leger HPI: 10/09 05:22 This 59 yrs old Male presents to ER via Ambulatory with complaints of Nausea. rt 05:22 Patient with known history of gastric cancer with frequent visits for nausea presents rt to the ED with continued nausea. Declines need for blood work, imaging. Denies any abdominal pain. Denies other acute complaints at this time, symptoms are moderate in severity, no other aggravating or alleviating factors.. 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 - Infectious Disease History:: Denies. - Social history:: Smoking status: Patient uses street drugs, marijuana. - Family history:: not pertinent. ROS: 05:22 Constitutional: Negative for fever, chills, and weight loss, Cardiovascular: Negative rt for chest pain, palpitations, and edema, Respiratory: Negative for shortness of breath, cough, wheezing, and pleuritic chest pain, MS/Extremity: Negative for injury and deformity, Skin: Negative for injury, rash, and discoloration, Neuro: Negative for headache, weakness, numbness, tingling, and seizure, 05:22 Abdomen/GI: Positive for nausea, Negative for abdominal pain, Exam: 05:22 Constitutional: This is a well developed, well nourished patient who is awake, alert, rt and in no acute distress. Head/Face: Normocephalic, atraumatic. Chest/axilla: Normal chest wall appearance and motion. Nontender with no deformity. No lesions are appreciated. Cardiovascular: Regular rate and rhythm with a normal S1 and S2. No gallops, murmurs, or rubs. Normal PMI, no JVD. No pulse deficits. Respiratory: Lungs have equal breath sounds bilaterally, clear to auscultation and percussion. No rales, rhonchi or wheezes noted. No increased work of breathing, no retractions or nasal flaring. Abdomen/GI: Soft, non-tender, with normal bowel sounds. No distension or tympany. No guarding or rebound. No evidence of tenderness throughout. Skin: Warm, dry with normal turgor. Normal color with no rashes, no lesions, and no evidence of cellulitis. MS/ Extremity: Pulses equal, no cyanosis. Neurovascular intact. Full, normal range of motion. Neuro: Awake and alert, GCS 15, oriented to person, place, time, and situation. Cranial nerves II-XII grossly intact. Motor strength 5/5 in all extremities. Sensory grossly intact. Cerebellar exam normal. Normal gait. Vital Signs: 02:40 BP 205 / 100; Pulse 87; Resp 19 S; Temp 98.2(T); Pulse Ox 100% on R/A; Weight 83.2 kg; ha1 Height 5 ft. 11 in. ; 04:11 BP 184 / 77; Pulse 83; Resp 18; Pulse Ox 98% on R/A; hm5 05:26 BP 179 / 83; Pulse 76; Resp 18; Pulse Ox 98% on R/A; 5 06:58 BP 171 / 75; Pulse 86; Resp 17; Pulse Ox 99% on R/A; 5 02:40 Body Mass Index 25.58 (83.20 kg, 180.34 cm) [facility] MDM: 02:57 Medical Screening Exam initiated rt 06:34 Differential diagnosis: Nausea. Data reviewed: vital signs, nurses notes. I considered rt the following discharge prescriptions or medication management in the emergency department Medications were administered in the Emergency Department. See MAR. Test considered but Not performed: Other Details This is a ongoing issue for the patient, he declines any labs, imaging studies, symptoms are improving, we will discharge have him follow-up as an outpatient.. Care significantly affected by the following chronic conditions: Cancer. Counseling: I had a detailed discussion with the patient and/or guardian regarding the historical points, exam findings, and any diagnostic results supporting the discharge/admit diagnosis, the need for outpatient follow up. Response to treatment: the patient's symptoms have markedly improved after treatment. Administered Medications: 03:25 Drug: metoCLOPramide IVP 10 mg IVP once; over 1 to 2 minutes Route: IVP; Site: [facility] Port-a-cath; 04:11 Follow up: Response: No adverse reaction; Nausea unchanged hm5 04:09 Drug: Promethazine IM 12.5 mg IM once Route: IM; Site: right deltoid; 5 05:24 Follow up: Response: No adverse reaction; Nausea is decreased 5 05:24 Drug: Promethazine IM 12.5 mg IM once Route: IM; Site: left deltoid; 5 05:49 Follow up: Response: No adverse reaction; Nausea is decreased 5 Disposition Summary: 10/09/24 06:33 Discharge Ordered Notes: Location: Home rt Problem: an ongoing problem rt Symptoms: have improved rt Condition: Stable rt Diagnosis - Nausea rt Followup: rt - With: Private Physician - When: 2 - 3 days - Reason: Discharge Instructions: - Discharge Summary Sheet rt - Nausea, Adult rt Forms: - Medication Reconciliation Form rt - Antibiotic Education rt - Prescription Opioid Use rt - Patient Portal Instructions rt - Leadership Thank You Letter rt Signatures: Moni Douglas, RN RN ha1 Sylvain Leger MD MD rt Mary Kay Garcia, ARTURO RN hm5
[2024-10-09] MEDS ORDERED: HEPARIN 500 UNIT/5 ML SYR IV ONE (06:51)
[2024-10-09 07:09] VITALS: TEMP 98.2
[2024-10-09 07:14] VITALS: BP 171/75; O2SAT 99
== END 2024-10-09 07:01 | disposition home or self-care (01) ==
LOC: ER 02:29
DX: R11.0 Nausea (principal); Z85.028 Personal history of other malignant neoplasm of stomach; Z85.528 Personal history of other malignant neoplasm of kidney; Z95.1 Presence of aortocoronary bypass graft; E11.9 Type 2 diabetes mellitus without complications; I10 Essential (primary) hypertension
CPT/HCPCS: 96372; 96374; 99284; J2550 ×2; J2765; J1642

== ENCOUNTER 2024-10-09 21:15 | Emergency (ER) | payer BC, OTHER ==
--- OUTSIDE RECORDS SUMMARY | 2024-10-09 21:22 | XMS REPORT | Clinical Summary ---
Author Name Unknown Organization [facility] Address [address] [place] [address] Care Team Providers Care School Psychological Examiner Name Role Phone Margoth Souza MD Primary Care Provider [phone] Mary Jane Cassidy MD Unavailable [phone] Barry He MD Unavailable Patience Hunt MD Unavailable Eagle Zhu DO Unavailable [phone] Marianela Hutchinson MD Unavailable [phone] Margoth Souza MD Unavailable Ceci Nicholson MD Unavailable [phone] Marianela Hutchinson MD Primary Care Provider [phone] Sigifredo Davenport MD Unavailable Abilio Ng-Adams Unavailable [phone] Allergies No known active allergies Medications insulin [...] by Tylenol). 60 mL 4 3:43 PM LONG TERM CARE PHARMACIST 04/15/20 24 025 Discontinued OLANZapine (ZyPREXA) 2.5 [...] 9% indicating poor diabetic control 01/02/2024 04/14/2024 long term care pharmacist current use of systemic steroid 01/02/2024 04/14/2024 Diabetic ketoacidosis 2023 Overview (01/01/2024): Hospitalized locally 12/03/2023-12/06/2023 Encounters Date Type Department Care Team Description 10/07/2024 4:30 PM CDT Infusion [facility] - [facility] [address] [facility], 8th [place] [address] Marianela Hutchinson MD Gumban, Connie Y, RN Adenocarcinoma of stomach (Primary Dx) 10/07/2024 Travel 10/05/2024 1:45 PM CDT Infusion Ambulatory Treatment [facility] - [facility] [address] [facility], 8th [place] [address] Marianela Hutchinson MD Olipas, Donnamarie G, RN Adenocarcinoma of stomach (Primary Dx); Iron deficiency anemia, not otherwise specified 10/05/2024 10:48 AM CDT - 10/05/2024 11:59 PM CDT Hospital Encounter [facility] [address] [place] [address] Marianela Hutchinson MD Adenocarcinoma of stomach Discharge Disposition: Home 10/05/2024 Travel 10/02/2024 Orders Only [facility] [address] [place] [address], 7th [place] [address] Gillian Gomez PA-C 09/25/2024 Telephone MDA ASKMTA PHYSICIAN [address] [place] [address] Jane Sanchez, rack puller Call 09/23/2024 8:56 PM CDT - 09/23/2024 11:34 PM CDT Emergency [facility] [address] [place] [address], 1st [place] [address] Otf Glaser MD Encounter for adjustment and management of vascular access device (Primary Dx); Hypertension Discharge Disposition: Home 09/23/2024 6:50 PM CDT Infusion [facility] Treatment [address] [address] Marianela Hutchinson MD Rocafort, Roy G, RN Adenocarcinoma of stomach (Primary Dx) 09/21/2024 4:30 PM CDT Infusion Ambulatory Treatment [address], [address] [place] [address] Marianela Hutchinson MD Joseph, Divya, RN Adenocarcinoma of stomach (Primary Dx); Iron deficiency anemia, not otherwise specified 09/21/2024 2:20 PM CDT [facility]Up [facility] [address] [place] [address] Marianela Hutchinson MD Adenocarcinoma of stomach 09/21/2024 12:48 PM CDT - 09/21/2024 11:59 PM CDT Hospital Encounter [facility] [address] [place] [address] Marianela Hutchinson MD Adenocarcinoma of stomach Discharge Disposition: Home 09/21/2024 Orders Only [facility] [address] [place] [address] Marianela Hutchinson MD Adenocarcinoma of stomach (Primary Dx) 09/21/2024 Orders Only [facility] [address] [place] [address] Radha Castellon [facility] Adenocarcinoma of stomach (Primary Dx); Diarrhea 09/21/2024 Travel 09/21/2024 Orders Only Ambulatory Treatment [address] [address] Marianela Hutchinson MD Adenocarcinoma of stomach (Primary Dx) 09/09/2024 6:30 PM CDT Infusion Ambulatory Treatment [address], [address] [place] [address] Marianela Hutchinson MD Balason, Adda Rica F RN Adenocarcinoma of stomach (Primary Dx) 09/09/2024 Travel 09/07/2024 4:30 PM CDT Infusion [facility] - [facility] [address] [facility], 8th [place] [address] Marianela Hutchinson MD Castillo, Emmanuel, RN Adenocarcinoma of stomach (Primary Dx); Iron deficiency anemia, not otherwise specified 09/07/2024 1:00 PM CDT [facility] [address] [place] [address], 7th [place] [address] Marianela Hutchinson MD Adenocarcinoma of stomach (Primary Dx) 09/07/2024 10:41 AM CDT - 09/07/2024 11:59 PM CDT Hospital Encounter [facility] [address] [place] [address] Marianela Hutchinson MD Adenocarcinoma of stomach Discharge Disposition: Home 09/07/2024 Orders Only [facility] [address] [place] [address], 7th [place] [address] Marianela Hutchinson MD Adenocarcinoma of stomach (Primary Dx) 09/07/2024 Orders Only [facility] [address] [place] [address], 7th [place] [address] Radha Castellon, [facility] Adenocarcinoma of stomach (Primary Dx); Iron deficiency anemia, not otherwise specified 09/07/2024 Travel 08/26/2024 7:41 PM CDT - 08/26/2024 11:59 PM CDT Hospital Encounter Ambulatory Treatment Center - Main Building [address] [facility], 2nd Floor, [place] [address] Marianela Hutchinson MD Le, Lam RN Adenocarcinoma of stomach (Primary Dx) Discharge Disposition: Home 08/24/2024 1:40 PM CDT [facility] [address] [place] [address], 7th [place] [address] Marianela Hutchinson MD Adenocarcinoma of stomach 08/24/2024 12:42 PM CDT - 08/24/2024 11:59 PM CDT Hospital Encounter Ambulatory Treatment Center - Main Building [address] [place] [address] Main [facility], 2nd Floor, [place] [address] Gillian Gomez PA-C Harrison, Kishanda S, RN Adenocarcinoma of stomach (Primary Dx) Discharge Disposition: Home 08/24/2024 11:16 AM CDT - 08/24/2024 12:41 PM CDT Hospital Encounter [facility] [address] [place] [address] Gillian Gomez PA-C Adenocarcinoma of stomach Discharge Disposition: Home 08/24/2024 Orders Only [facility] [address] [place] [address] Main [facility], 7th [place] [address] Marianela Hutchinson MD Adenocarcinoma of stomach (Primary Dx) 08/24/2024 Telephone [facility] [address] [place] [address] Main [facility], 7th [place] [address] Mony Saavedra, RN 08/24/2024 Orders Only [facility] [address] [place] [address] Main [facility], 7th [place] [address] Radha Castellon [facility] Adenocarcinoma of stomach (Primary Dx) 08/24/2024 Travel 08/24/2024 Orders Only Ambulatory Treatment Center - Main [address], 2nd Floor, [place] [address] Marianela Hutchinson MD Adenocarcinoma of stomach (Primary Dx) 08/21/2024 Telephone [facility] [address] [place] [address], 7th [place] [address] Mialgros Rogers RN 08/17/2024 Orders Only [facility] [address] [place] [address] Main [facility], 7th [place] [address] Gillian Gomez PA-C Adenocarcinoma of stomach (Primary Dx) 08/06/2024 Orders Only [facility] [address] [place] [address], 7th [place] [address] Radha Castellon RPH 07/22/2024 Orders Only Ambulatory Treatment [facility] [address] [facility], 8th [place] [address] Marianela Hutchinson MD Adenocarcinoma of stomach (Primary Dx) 07/21/2024 Telephone Ambulatory Treatment [facility] [address] [facility], 8th [place] [address] Rosanna Álvarez, ARTURO Chemotherapy Teaching 07/16/2024 2:40 PM LONG TERM CARE PHARMACIST Follow[facility]Up [facility] [address] [place] [address], 7th [place] [address] Marianela Hutchinson MD Adenocarcinoma of stomach (Primary Dx) 07/16/2024 Orders Only [facility] [address] [place] [address], 7th [place] [address] Marianela Hutchinson MD Adenocarcinoma of stomach (Primary Dx) 07/16/2024 Orders Only [facility] [address] [place] [address], 7th [facility] [place] [address] Radha Castellon, [facility] Adenocarcinoma of stomach (Primary Dx) 07/16/2024 Travel 07/15/2024 10:08 AM LONG TERM CARE PHARMACIST - 07/15/2024 11:59 PM LONG TERM CARE PHARMACIST Hospital Encounter CT [facility] [address] [place] [address], 3rd [place] [address] Mary Kay Santamaria APRN Adenocarcinoma of stomach Discharge Disposition: Home 07/15/2024 9:49 AM LONG TERM CARE PHARMACIST - 07/15/2024 10:07 AM LONG TERM CARE PHARMACIST Hospital Encounter [facility] [address] [place] [address] Mary Kay Santamaria APRN Adenocarcinoma of stomach Discharge Disposition: Home 07/07/2024 Orders Only [facility] [address] [place] [address], 7th [place] [address] Gillian Gomez PA-C Adenocarcinoma of stomach (Primary Dx) 07/06/2024 Telephone [facility] - Surgical Oncology [address] [place] [address] Main [facility], 7th [place] [address] Mary Kay Santamaria, VEGETABLE TESTER 07/06/2024 Orders Only [facility] - Surgical Oncology [address] [place] [address] Main dg, 7th [place] [address] Mary Kay Santamaria, VEGETABLE TESTER 07/06/2024 Orders Only [facility] [address] [place] [address] Main [facility], 7th [place] [address] Gillian Gomez PA-C Adenocarcinoma of stomach (Primary Dx) 07/06/2024 Multidisciplinary Visit [facility] [address] [place] [address] Main [facility], 7th Floor Elevator A [place] [phone] Gillian Gomez PA-C 07/06/2024 Orders Only [facility] [address] [place] [address] Main dg, 7th [place] [address] Donnell Van Adenocarcinoma of stomach (Primary Dx) 07/02/2024 11:00 AM LONG TERM CARE PHARMACIST Nutrition Clinical Nutrition For your Nutrition appointment location directions please call: Marianela Hutchinson MD Munder, Kathryn, SCOTT Left without seen 07/02/2024 10:30 AM LONG TERM CARE PHARMACIST Follow[facility]Up [facility] - Surgical Oncology [address] [place] [address] Main dg, 7th Floor Elevator A [place] [phone] John Fong MD Adenocarcinoma of stomach 07/02/2024 Documentation [facility] - Surgical Oncology [address] [place] [address] Main [facility], 7th Floor Elevator A [place] [phone] John Fong MD 06/30/2024 3:33 PM LONG TERM CARE PHARMACIST Anesthesia Event Perioperative Evaluation and Management Center [address] [place] [address] Main [facility], 6th Floor Elevator A [place] [phone] Lien Antonio RN 06/30/2024 12:25 PM LONG TERM CARE PHARMACIST Anesthesia Event Endoscopy Center [address] [place] [address] Main [facility], 5th [place] [address] Susana Kelly MD 06/30/2024 12:00 PM LONG TERM CARE PHARMACIST - 06/30/2024 12:45 PM LONG TERM CARE PHARMACIST Surgery Endoscopy Center [address] [place] [address], 5th [place] [address] Brandon Alcala MD DIAGNOSTIC UPPER GASTROINTESTINAL ENDOSCOPY 06/30/2024 10:15 AM LONG TERM CARE PHARMACIST - 06/30/2024 2:24 PM LONG TERM CARE PHARMACIST Hospital Encounter Endoscopy Center [address] [place] [address], 5th Floor Elevator C [place] [phone] Brandon Alcala MD Adenocarcinoma of stomach Discharge Disposition: Home 06/30/2024 Travel 06/29/2024 9:00 AM LONG TERM CARE PHARMACIST Consult Perioperative Evaluation and Management [address] [place] [address], 6th Floor Elevator A [place] [phone] Mary Kay Santamaria APRN Vu, Khanh D, MD Encounter for preprocedural cardiovascular examination (Primary Dx); Coronary arteriosclerosis, not otherwise specified; Cardiomyopathy, not otherwise specified; Hypertension; long term care pharmacist current use of 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; Type 2 diabetes mellitus with hyperglycemia; Dyslipidemia; Hyponatremia; Hyperkalemia; Adenocarcinoma of stomach; Paroxysmal atrial fibrillation; Hyperlipidemia, not otherwise specified 06/29/2024 8:00 AM LONG TERM CARE PHARMACIST POEM Appointments Peri[facility] [address] [place] [address], 6th [place] [address] Marianela Hutchinson MD 06/29/2024 7:30 AM LONG TERM CARE PHARMACIST - 06/29/2024 11:59 PM LONG TERM CARE PHARMACIST Hospital Encounter [facility] [address] [place] [address], 2nd Floor Elevator A [place] [phone] Mary Kay Santamaria APRN Adenocarcinoma of stomach Discharge Disposition: Home 06/29/2024 Travel 06/23/2024 Documentation [facility] [address] [place] [address], 7th [place] [address] Mony Saavedra, RN 06/22/2024 12:20 PM LONG TERM CARE PHARMACIST Follow[facility]Up [facility] [address] [place] [address], [address] [place], [place] [address] [address] Marianela Hutchinson MD Adenocarcinoma, NOS of stomach, NOS 06/22/2024 Orders Only [facility] [address] [place] [address], [address] [place], [place] [address] [address] Radha Castellon, [facility] 06/22/2024 Travel 06/20/2024 10:45 AM LONG TERM CARE PHARMACIST - 06/20/2024 11:59 PM LONG TERM CARE PHARMACIST Hospital Encounter [facility] Imaging [facility] [address] [place] [address], 3rd [place] [address] Adenocarcinoma, NOS of stomach, NOS; Malignant neoplasm of overlapping sites of esophagus Discharge Disposition: Home 06/20/2024 10:08 AM LONG TERM CARE PHARMACIST - 06/20/2024 10:44 AM LONG TERM CARE PHARMACIST Hospital Encounter [facility] [address] [place] [address] Gillian Gomez PA-C Adenocarcinoma, NOS of stomach, NOS Discharge Disposition: Home 06/16/2024 [facility] - Surgical Oncology [address] [place] [address], [address] [place], [place] [address] [address] Mary Kay Santamaria APRN 06/15/2024 1:30 PM LONG TERM CARE PHARMACIST Infusion [facility] Treatment [facility] - [facility] [address] [facility], 8th [place] [address] Marianela Hutchinson MD On License Of [facility], Jorge Tyson RN Adenocarcinoma of stomach (Primary Dx); Iron deficiency anemia, not otherwise specified 06/15/2024 12:40 PM LONG TERM CARE PHARMACIST [facility] [address] [place] [address], [address] [place] [address] [place] [address] Marianela Hutchinson MD Adenocarcinoma, NOS of stomach, NOS; Malignant neoplasm of overlapping sites of esophagus 06/15/2024 10:24 AM LONG TERM CARE PHARMACIST - 06/15/2024 11:59 PM LONG TERM CARE PHARMACIST Hospital Encounter Diagnostic Laboratory Center [facility] [facility] [place] [address] Marianela Hutchinson MD Adenocarcinoma of stomach; Adenocarcinoma, NOS of stomach, NOS Discharge Disposition: Home 06/15/2024 Orders Only [facility] [address] [place] [address] Main [facility], 7th [place] [address] Radha Castellon [facility] Adenocarcinoma of stomach (Primary Dx) 06/15/2024 Orders Only [facility] [address] [place] [address], 7th [place] [address] Gillian Gomez PA-C 06/15/2024 Travel 06/15/2024 Telephone [facility] - Gastroenterology , Hepatology & Nutrition [address] [place] [address], [facility] [place] [address] Arnaldo Araujo PA-C 06/15/2024 Multidisciplinary Visit [facility] [address] [place] [address], [address] [place], [place] [address] [address] Lakeshia Pablo PA 06/15/2024 Orders Only [facility] [address] [place] [address], [address] [place], [place] [address] [address] Marianela Hutchinson MD Adenocarcinoma of stomach (Primary Dx) 06/12/2024 Prep for Surgery [facility] - Gastroenterology , Hepatology & Nutrition [address] [place] [address], [address] [place], [place] [address] [address] Arnaldo Araujo PA-C Adenocarcinoma of stomach (Primary Dx) 06/12/2024 Telephone [facility] - Surgical Oncology [address] [place] [address] Main [facility], [facility] [place] [address] Mary Kay Santamaria APRN 06/12/2024 Orders Only [facility] - Surgical Oncology [address] [place] [address] Main [facility], [facility] [place] [address] Mary Kay Santamaria, FRANK Adenocarcinoma of stomach (Primary Dx) 06/10/2024 Orders Only [facility] - Surgical Oncology [address] [place] [address], 7th [place] [address] Mary Kay Santamaria APRN Adenocarcinoma of stomach (Primary Dx) 06/05/2024 Telephone [facility] - Gastroenterology , Hepatology & Nutrition [address] [place] [address], 7th [place] [address] Arnaldo Araujo PA-C 06/03/2024 5:30 PM LONG TERM CARE PHARMACIST Infusion [facility] - [facility] [address] [facility], 8th [place] [address] Marianela Hutchinson MD Lewandowski, Teresa M, RN Adenocarcinoma of stomach (Primary Dx) 06/03/2024 Travel 06/02/2024 Telephone [facility] [address] [place] [address], 7th [place] [address] Mony Saavedra RN 06/01/2024 1:00 PM LONG TERM CARE PHARMACIST Infusion [facility] [address] [facility], Floor 6 [place] [address] Marianela Hutchinson MD Shaik, Anna Marie B RN Adenocarcinoma of stomach (Primary Dx); Iron deficiency anemia, not otherwise specified 06/01/2024 10:53 AM LONG TERM CARE PHARMACIST - 06/01/2024 11:59 PM LONG TERM CARE PHARMACIST Hospital Encounter [facility] Center [address] [place] [address] Marianela Hutchinson MD Adenocarcinoma of stomach; Iron deficiency anemia, not otherwise specified Discharge Disposition: Home 06/01/2024 Orders Only [facility] [address] [place] [address], 7th [place] [address] Marianela Hutchinson MD 06/01/2024 Orders Only [facility] [address] [place] [address], 7th [place] [address] Radha Castellon [facility] Adenocarcinoma of stomach (Primary Dx); Iron deficiency anemia, not otherwise specified 06/01/2024 Travel 06/01/2024 Orders Only [facility] [address] [facility], Floor 6 [place] [address] Marianela Hutchinson MD Adenocarcinoma of stomach (Primary Dx) 05/26/2024 Telephone [facility] - Gastroenterology , Hepatology & Nutrition [address] [place] [address] Main [facility], 7th [place] [address] Arnaldo Araujo PA-C 05/22/2024 Telephone [facility] - Gastroenterology , Hepatology & Nutrition [facility], 7th [place] [address] Arnaldo Araujo PA-C 05/22/2024 Orders Only [facility] - Gastroenterology , Hepatology & Nutrition [address] [place] [address], 7th [place] [address] Arnaldo Araujo PA-C Candidal esophagitis (Primary Dx) 05/20/2024 4:30 PM LONG TERM CARE PHARMACIST - 05/20/2024 11:59 PM LONG TERM CARE PHARMACIST Hospital Encounter Ambulatory Treatment Center - [address], 2nd Floor, [place] [address] Marianela Hutchinson MD Lewandowski, Teresa M RN Adenocarcinoma of stomach Discharge Disposition: Home 05/19/2024 12:44 PM LONG TERM CARE PHARMACIST Anesthesia Event Endoscopy Center [address] [place] [address], 5th [place] [address] Maurice Ferrera MD [facility] [place] 05/19/2024 12:00 PM LONG TERM CARE PHARMACIST - 05/19/2024 1:10 PM LONG TERM CARE PHARMACIST Surgery [facility] [address] [place] [address], 5th Floor Elevator C [place] [phone] Brandon Alcala MD UPPER GASTROINTESTINAL ENDOSCOPY OF ESOPHAGUS, STOMACH, OR DUODENUM ANDJ ADJACENT STRUCTURES, WITH ENDOSCOPIC ULTRASOUND EXAMINATION 05/19/2024 11:17 AM LONG TERM CARE PHARMACIST - 05/19/2024 2:49 PM LONG TERM CARE PHARMACIST Hospital Encounter Endoscopy Center [address] [place] [address], 5th [place] [address] Brandon Alcala MD Adenocarcinoma of stomach Discharge Disposition: Home 05/19/2024 Travel 05/18/2024 1:00 PM LONG TERM CARE PHARMACIST Infusion [facility] [address] [facility], Floor 6 [place] [address] Marianela Hutchinson MD Rupp, Alexa B, RN Adenocarcinoma of stomach (Primary Dx) 05/18/2024 12:20 PM LONG TERM CARE PHARMACIST [facility] [address] [place] [address], [facility] [place] [address] Marianela Hutchinson MD Adenocarcinoma, NOS of stomach, NOS 05/18/2024 11:00 AM LONG TERM CARE PHARMACIST POEM Appointments Perioperative Evaluation [facility] Management Center [address] [place] [address] [place] [address] Marianela Hutchinson MD 05/18/2024 10:32 AM LONG TERM CARE PHARMACIST - 05/18/2024 11:59 PM LONG TERM CARE PHARMACIST Hospital Encounter [facility] [address] [place] [address] Gillian Gomez PA-C Adenocarcinoma, NOS of stomach, NOS Discharge Disposition: Home 05/18/2024 Orders Only [facility] [address] [place] [address], [address] [place] [address] Marianela Hutchinson MD Adenocarcinoma of stomach (Primary Dx) 05/18/2024 Orders Only [facility] [address] [place] [address] Radha Castellon [facility] Adenocarcinoma of stomach (Primary Dx); Iron deficiency anemia, not otherwise specified 05/18/2024 Travel 05/15/2024 11:59 PM LONG TERM CARE PHARMACIST Anesthesia Event Perioperative Evaluation [facility] Management Center [address] [place], [place] [address]ator [place] [phone] Eri Lynne RN 05/06/2024 5:30 PM LONG TERM CARE PHARMACIST Infusion Ambulatory [facility] - [facility] [address] [facility], 8th Floor Elevator T [place] [phone] Marianela Hutchinson MD Pagara, Leni S, RN Adenocarcinoma of stomach 05/04/2024 12:36 PM LONG TERM CARE PHARMACIST - 05/04/2024 11:59 PM LONG TERM CARE PHARMACIST Hospital Encounter Ambulatory Treatment Center - [address], 2nd Floor, [place] [address] Gillian Gomez PA-C Jo, Edifia Sungsoon, RN Adenocarcinoma of stomach (Primary Dx) Discharge Disposition: Home 05/04/2024 12:20 PM LONG TERM CARE PHARMACIST [facility] [address] [place] [address], 7th Floor [place] [address] Marianela Hutchinson MD Adenocarcinoma, NOS of stomach, NOS 05/04/2024 11:10 AM LONG TERM CARE PHARMACIST - 05/04/2024 12:35 PM LONG TERM CARE PHARMACIST Hospital Encounter [facility] [address] [place], [place] [id number] Gillian Gomez PA-C Adenocarcinoma, NOS of stomach, NOS; Adenocarcinoma of stomach Discharge Disposition: Home 05/04/2024 Orders Only [facility] [address] [place] [address], 7th [place] [address] Marianela Hutchinson MD Adenocarcinoma of stomach (Primary Dx) 05/04/2024 Orders Only [facility] [address] [place] [address], 7th [place] [address] Radha Castellon [facility] Adenocarcinoma of stomach (Primary Dx) 05/04/2024 Travel 04/30/2024 Orders Only [facility] [address] [place] [address], 7th Floor Elevator [place] [phone] Mary Kay Santamaria APRN Adenocarcinoma of stomach (Primary Dx); Paroxysmal atrial fibrillation; Hyperlipidemia, not otherwise specified; Type 2 diabetes mellitus with hyperglycemia 04/27/2024 8:05 PM LONG TERM CARE PHARMACIST Ancillary Procedure Image Library [address] [place] [address] Cancer 04/27/2024 8:00 PM LONG TERM CARE PHARMACIST Ancillary Procedure Image Library [address] [place] [address] Cancer 04/27/2024 Orders Only [facility] [address] [place] [address], 7th [place] [address] Donnell Van Adenocarcinoma of stomach (Primary Dx) 04/24/2024 Documentation [facility] [address] [facility], 8th [place] [address] Mary Kay Santamaria, FRANK 04/24/2024 Orders Only [facility] [address] [place] [address], 7th [place] [address] Mary Kay Santamaria, VEGETABLE TESTER Adenocarcinoma, NOS of stomach, NOS (Primary Dx) 04/24/2024 Telephone [facility] [address] [place] [address], 7th [place] [address] Mary Kay Santamaria, FRANK 04/22/2024 Lab Requisition [facility] Sincere Moralez MD Jain, Shilpa, MD 04/21/2024 Orders Only [facility] [address] [place] [address], 7th [place] [address] Gillian Gomez PA-C Adenocarcinoma, NOS of stomach, NOS (Primary Dx); Adenocarcinoma of stomach 04/16/2024 Telephone [facility] [address] [place] [address] 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, rack puller Call 04/15/2024 10:09 AM LONG TERM CARE PHARMACIST Anesthesia Event MAIN OR [address] [place], [place] [phone] Meenakshi Crowe MD Miller, Wendy, FUNCTIONAL ANALYST 04/15/2024 10:05 AM LONG TERM CARE PHARMACIST - 04/15/2024 1:25 PM LONG TERM CARE PHARMACIST Surgery MAIN OR [address] [place] [address] John Fong MD ROBOTIC ASSISTED SURGICAL LAPAROSCOPY 04/15/2024 7:32 AM LONG TERM CARE PHARMACIST - 04/15/2024 11:50 PM LONG TERM CARE PHARMACIST Hospital Encounter MAIN OR [address] [place] [address] John Fong MD Adenocarcinoma of stomach (Primary Dx) Discharge Disposition: Home 04/15/2024 Travel 04/14/2024 2:30 PM LONG TERM CARE PHARMACIST Consult [facility] [address] [place] [address] Main [facility], 7th [place] [address] Gillian Gomez PA-C Badgwell, Brian, MD Adenocarcinoma, NOS of stomach, NOS (Primary Dx); Nausea 04/14/2024 Documentation [facility] [address] [place] [address], 7th [place] [address] John Fong MD 04/13/2024 3:00 PM LONG TERM CARE PHARMACIST Consult [facility] [address] [place] [address], 7th [place] [address] Marianela Hutchinson MD Mass of stomach (Primary Dx) 04/13/2024 2:02 PM LONG TERM CARE PHARMACIST Anesthesia Event [facility] [address] [place] [address], 6th [place] [address] Curtis Moctezuma PA 04/12/2024 8:22 AM LONG TERM CARE PHARMACIST - 04/12/2024 3:42 PM LONG TERM CARE PHARMACIST Hospital Encounter MAIN P06B [address] [place] [address] Nghia Zhu MD Elsayem, Ahmed, MD Nausea and vomiting (Primary Dx); Gastric cancer; Pancreatitis Discharge Disposition: Left Against Medical Advice 04/12/2024 Travel 04/09/2024 8:25 PM LONG TERM CARE PHARMACIST Ancillary Procedure Image Library [address] [place] [address] Margoth Souza MD Cancer 04/09/2024 8:20 PM LONG TERM CARE PHARMACIST Ancillary Procedure Image Library [address] [place] [address] Margoth Souza MD Cancer 04/09/2024 8:15 PM LONG TERM CARE PHARMACIST Ancillary Procedure Image Library [address] [place] [address] Margoth Souza MD Cancer 04/09/2024 8:10 PM LONG TERM CARE PHARMACIST Ancillary Procedure Image Library [address] [place] [address] Margoth Souza MD Cancer 04/09/2024 8:05 PM LONG TERM CARE PHARMACIST Ancillary Procedure Image Library [address] [place] [address] Margoth Souza MD Cancer 04/09/2024 8:00 PM LONG TERM CARE PHARMACIST Ancillary Procedure Image Library [address] [place] [address] Margoth Souza MD Cancer 04/09/2024 10:48 AM LONG TERM CARE PHARMACIST - 04/09/2024 11:59 PM LONG TERM CARE PHARMACIST Hospital Encounter [facility] [address] [place] [address] Ceci Nicholson MD Encounter for other preprocedural examination; Atherosclerosis of coronary 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, not otherwise specified; 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 Discharge Disposition: Home 04/09/2024 10:00 AM LONG TERM CARE PHARMACIST POEM Appointments [facility] [address] [place] [address], 6th [place] [address] Margoth Souza MD 04/09/2024 9:56 AM LONG TERM CARE PHARMACIST - 04/09/2024 10:47 AM LONG TERM CARE PHARMACIST Hospital Encounter [facility] [address] [place] [address], 2nd [place] [address] Ceci Nicholson MD Adenocarcinoma of stomach; Hyperlipidemia, not otherwise specified; Encounter for other preprocedural examination; Atherosclerosis of coronary 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, not otherwise specified Discharge Disposition: Home 04/09/2024 9:00 AM LONG TERM CARE PHARMACIST Consult Perioperative Evaluation [facility] Management [address] [place] [address], 6th [place] [address] Mary Kay Santamaria APRN Misoi, Mercy W, MD Encounter for other preprocedural examination (Primary Dx); Adenocarcinoma of stomach; Paroxysmal atrial fibrillation; Hypertension; 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; Hyperlipidemia, not otherwise specified; Current use of 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; Atherosclerosis of coronary 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, not otherwise specified 04/09/2024 Travel 04/08/2024 Prep for Surgery [facility] [address] [place] [address], [address] [place] [address] Mary Kay Santamaria APRN Adenocarcinoma of stomach (Primary Dx); Mass of stomach 04/08/2024 Orders Only [facility] [address] [place] [address], [address] [place] [address] Mary Kay Santamaria APRN Adenocarcinoma of stomach (Primary Dx); Paroxysmal atrial fibrillation; Hypertension; 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; Hyperlipidemia, not otherwise specified; Current use of 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 04/08/2024 Orders Only [facility] [address] [place] [address], [address] [place] [address] Gillian Gomez PA-C Adenocarcinoma, NOS of stomach, NOS (Primary Dx) 04/06/2024 [facility] [address] [place] [address], [address] [place] [address] Roberto Poole PA 04/06/2024 Orders Only [facility] [address] [place] [address], [address] [place] [address] Roberto Poole PA Mass of stomach (Primary Dx) 04/06/2024 Orders Only [facility] [address] [place] [address], [address] [place] [address] [place] [address] Roberto Poole PA Mass of stomach (Primary Dx) 04/06/2024 Telephone [facility] [address] [place] [address], [address] [place] [address] Anais Meng RN 02/11/2024 Travel 02/10/2024 3:30 PM CDT Telemedicine [facility] [address] [place] [address], 7th [place] [address] Margoth Souza MD Renal mass (Primary Dx) 01/02/2024 7:15 AM CDT Ancillary Procedure MAIN OR [address] [place], [place] [phone] Margoth Souza MD 01/02/2024 7:00 AM CDT - 01/02/2024 11:40 AM CDT Surgery MAIN OR [address] [place] [address] Margoth Souza MD ROBOTIC ASSISTED PARTIAL NEPHRECTOMY 01/02/2024 6:58 AM CDT Anesthesia Event MAIN OR [address] [place] [address] Alonzo Liu MD Majekodumi, Jessy, PAXTON 01/02/2024 5:04 AM CDT - 01/03/2024 5:05 PM CDT Hospital Encounter MAIN P09B [address] [place] [address] Margoth Souza MD Renal mass (Primary Dx) Discharge Disposition: Home 01/02/2024 Travel 12/31/2023 1:04 PM CDT - 12/31/2023 11:59 PM CDT Hospital Encounter CT [facility] [address] [place] [address], 3rd [place] [address] Margoth Souza MD Renal mass Discharge Disposition: Home 12/31/2023 8:00 AM CDT Consult [facility] [address] [place] [address], 6th [place] [address] Nakia Kirby APRN Khan, Sonya, MD Type 2 diabetes mellitus with hyperglycemia [E11.65] (Primary Dx); Pre-surgery evaluation 12/30/2023 9:30 AM CDT Office Visit [facility], 7th [place] [address] Margoth Souza MD Renal mass 12/30/2023 Travel 12/30/2023 Telephone [facility] [address] [place] [address], 6th [place] [address] Winnie Archibald, ARTURO Appointment (Cannot get internet-phone broke) 12/30/2023 Orders Only [facility] [address] [facility], 7th [place] [address] Roberto Poole PA Renal mass (Primary Dx) 12/29/2023 Orders Only [facility] [address] [place] [address], [address] [place] [address] [place] [address] Veronica Del Castillo APRN 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); Endocrine/metabolic screening; Renal cell carcinoma <Left side> 12/25/2023 8:36 AM CDT Anesthesia Event [facility] [address] [place], [place] [address] [address] Lien Antonio RN 12/23/2023 10:30 AM CDT Consult Perioperative Evaluation and Management [address] [place] [address] [place] [address] Margoth Souza MD Oh, Jeong, MD Encounter for other preprocedural examination (Primary Dx); Renal mass; Hyperlipidemia, not otherwise specified 12/23/2023 9:00 AM CDT POEM Appointments [facility] [address] [place] [address] Margoth Souza MD Pre-surgery evaluation (Primary Dx) 12/23/2023 8:45 AM CDT - 12/23/2023 11:59 PM CDT Hospital Encounter [facility] [address] [place] [address] Margoth Souza MD Renal mass Discharge Disposition: Home 12/23/2023 Travel 12/09/2023 9:33 AM CDT - 12/09/2023 11:59 PM CDT Hospital Encounter [facility] [address] [place] [address] You-Evonne, Leah-Zora, VEGETABLE TESTER 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, 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 APPENDECTOMY 05/20/1973 - 05/19/1974 Open WRIST SURGERY Left HAND SURGERY Right HIP ARTHRODESIS W/ ILIAC CRE ST BONE GRAFT Bilateral For hand surgeries CERVICAL SPINE SURGERY C3-6 fusion, x2 CO LAPAROSCOPY SURG PARTIAL NEPHRECTOMY 01/02/2024 Abdomen/Left Procedure: ROBOTIC ASSISTED PARTIAL NEPHRECTOMY; Surgeon: Margoth Souza MD; Location: MAIN OR; Service: UROLOGY CO ULTRASONIC GUIDANCE INTRAOPERATIVE 01/02/2024 Left Procedure: INTROPERATIVE ULTRASOUND - PERFORMED BY SURGEON; Surgeon: Margoth Souza MD; Location: MAIN OR; Service: UROLOGY CORONARY ARTERY BYPASS GRAFT 01/07/2024 CO LAPS ABD PRTM&OMENTUM DX W/WO SPEC BR/WA SPX 04/15/2024 Abdomen/N/A Procedure: ROBOTIC ASSISTED SURGICAL LAPAROSCOPY; Surgeon: John Fong MD; Location: MAIN OR; Service: SURG ONC - GASTRIC/HIPEC Medical devices from this surgery are in the Medical Devices section. CO FLUORO CENTRAL VENOUS ACC ESS DEV PLACEMENT 04/15/2024 Neck/N/A Procedure: FLUORO GUIDANCE FOR CENTRAL VENOUS ACCESS DEVICE PLACEMENT, REPLACEMENT, OR REMOVAL; Surgeon: John Fong MD; Location: MAIN OR; Service: SURG ONC - GASTRIC/HIPEC Medical devices from this surgery are in the Medical Devices section. CO US VASC ACCESS SITS VSL P ATENCY NDL ENTRY 04/15/2024 N/A Procedure: US GUIDANCE WITH EVAL OF POTENTIAL ACCESS SITES, REALTIME US VISUALIZATION OF VASC NEEDLE ENTRY; Surgeon: John Fong MD; Location: MAIN OR; Service: SURG ONC - GASTRIC/HIPEC Medical devices from this surgery are in the Medical Devices section. CO INSJ TUNNELED CTR VAD W/S UBQ PORT AGE 5 YR/> 04/15/2024 Neck/N/A Procedure: PORT-A-CATH PLACEMENT; Surgeon: John Fong MD; Location: MAIN OR; Service: SURG ONC - GASTRIC/HIPEC Medical devices from this surgery are in the Medical Devices section. CO ESOPHAGOGASTRODUODENOSCOP Y US SCOPE W/ADJ STRXRS 05/19/2024 Esophagus/N/A Procedure: UPPER GASTROINTESTINAL ENDOSCOPY OF ESOPHAGUS, STOMACH, OR DUODENUM ANDJ ADJACENT STRUCTURES, WITH ENDOSCOPIC ULTRASOUND EXAMINATION; Surgeon: Brandon Alcala MD; Location: MAIN ENDOSCOPY; Service: GASTROENTEROLOGY CO ESOPHAGOGASTRODUODENOSCOP Y TRANSORAL DIAGNOSTIC 06/30/2024 Esophagus/N/A Procedure: [...] locally 12/03/2023-12/06/2023 of note, pt was on [facility] Peripheral vascular disease 2023 Left LE [...] on file Legal Sex Male 11:38 AM LONG TERM CARE PHARMACIST Gender Identity Not on file Sexual Orientation Not on file Occupation Industry Job Start Date Job End Date retired from [employer] Not on file N ot on file Not on file Travel History Travel Start Travel End [place] 04/12/2024 04/12/2024 Obstetrics History Last Filed Vital [...] 188 cm (6' 2") 05/19/2024 11:53 AM LONG TERM CARE PHARMACIST Body Mass Index 23.32 05/19/2024 11:53 AM LONG TERM CARE PHARMACIST Plan of Treatment Upcoming Encounters Date Type Department Care Team (Late st Contact Info) Description 10/25/2024 7:00 AM CDT Appointment [facility] [address] [place] [address] Marianela Hutchinson MD [address] [place] [phone] [email or web address] 10/25/2024 7:[address] Imaging [facility] Diagnostic Imaging [address] [place] [address], 3rd [place] [address] Gillian Gomez PA-C [address] [place] [phone] [email or web address] 10/26/2024 12:20 PM CDT Follow-Up [facility] [address] [place] [address], 7th [place] [address] Marianela Hutchinson MD [address] [place] [phone] [email or web address] 10/26/2024 1:15 PM CDT [facility] [address] [facility], 8th [place] [address] Marianela Hutchinson MD [address] [place] [phone] [email or web address] 11/23/2024 7:30 AM CDT Appointment [facility] [address] [place] [address] Marianela Hutchinson MD [address] [place] [phone] [email or web address] 02/01/2025 11:30 AM CDT Appointment [facility] [address] [place] [address] Veronica Del Castillo, VEGETABLE TESTER [address] [place] [address] [email or web address] 02/01/2025 11:[address] [facility] Diagnostic [facility] [address] [place] [address], 3rd [place] [address] Veronica Del Castillo, VEGETABLE TESTER [facility] [place] [address] [email or web address] 02/01/2025 3:00 PM CDT Follow-Up Endocrine Center [address] [place] [address], 6th [place] [address] Mary Jane Cassidy MD [address] [place] [phone] [email or web address] 02/05/2025 10:45 AM CDT Lab [facility] [address] [place] [address], [address] [place] [address] Margoth Souza MD [address] [place] [phone] [email or web address] 02/05/2025 11:15 AM CDT Ancillary Procedure [facility] Out[facility] [address] [place] [address] Margoth Souza MD [address] [place] [phone] [email or web address] 02/05/2025 11:55 AM CDT Ancillary Procedure CT Imaging [address] [place] [address], [address] [place] [address] Margoth Souza MD [address] [place] [phone] [email or web address] 02/08/2025 2:30 PM CDT Telemedicine [facility] [address] [place] [address], [address] [place] [address] Margoth Souza MD [address] [place] [phone] [email or web address] Health Maintenance Due Date Last Done Comments COVID-19 Vaccine (#1) 01/09/1969 Pneumococcal Vaccine: 50+ Years (1 of 2 - PCV) 983 01/09/1975 Influenza Vaccine (Season Ended) 2025 08/05/19 19 Medical Devices Implanted Type Area City Engineer Device Identifier Shelf Expiration Date Model / Serial / Lot Slade Muhammad 6fr - [id number] Implanted:Qty: 1 on 04/15/2024 by John Fong MD at [facility] Implant Right: Neck BARD ACCESS SYSTEMS 12/17/2024 [id number] / / [id number] Procedures Procedure Name Priority Date/Time Associated Diagnosis [...] PELVIS W CONTRAST Routine 07/15/2024 4:38 PM LONG TERM CARE PHARMACIST Adenocarcinoma of stomach .CBC Routine 07/15/2024 10:01 AM LONG TERM CARE PHARMACIST Adenocarcinoma of stomach CARCINOEMBRYONIC ANTIGEN Routine 025 10:01 AM LONG TERM CARE PHARMACIST Adenocarcinoma of stomach LACTATE DEHYDROGENASE Routine 07/15/2024 10:01 AM LONG TERM CARE PHARMACIST Adenocarcinoma of stomach PHOSPHORUS LEVEL Routine 07/15/2024 10:01 AM LONG TERM CARE PHARMACIST Adenocarcinoma of stomach MAGNESIUM LEVEL Routine 07/15/2024 10:01 AM LONG TERM CARE PHARMACIST Adenocarcinoma of stomach COMPREHENSIVE METABOLIC PANEL Routine 10:01 AM LONG TERM CARE PHARMACIST Adenocarcinoma of stomach COMPLETE BLOOD COUNT W/ DIFFERENTIAL Routine 07/15/2024 10:01 AM LONG TERM CARE PHARMACIST Adenocarcinoma of stomach RESEARCH PROTOCOL [id number] Routine 07/15 10:01 AM LONG TERM CARE PHARMACIST Adenocarcinoma of stomach MDA AP IHC WORKUP Routine 07/07/2024 12:29 PM LONG TERM CARE PHARMACIST Adenocarcinoma of stomach POC GLUCOSE SCREEN Routine 06/30/2024 1:23 PM LONG TERM CARE PHARMACIST PATHOLOGY BIOPSY INTERPRETATION Routine 06/30/2024 12:51 PM LONG TERM CARE PHARMACIST Adenocarcinoma of stomach CO ESOPHAGOGASTRODUODENOSCOP Y TRANSORAL DIAGNOSTIC 06/30/2024 12:15 PM LONG TERM CARE PHARMACIST Adenocarcinoma of stomach Case Notes 06/12 per gene to schedule on 06/30, per tor to schedule 06/30 thru lunch last AM case, slot held to offer. LVM and sent mychart to schedule-DC Special Needs PUBLIC ADMINISTRATION TEACHER CHRIS COMPLETE 06/18.PUBLIC ADMINISTRATION TEACHERARTURO TESFAYEM FOR DAUGHTER WITH DETAILED INSTRUCTIONS FOR PROCEDURE IN ADDITION TO HOLD ON PLAVIX FOR 5 DAYS.PUBLIC ADMINISTRATION TEACHERARTURO HERNANDEZ 1ST CALL 06/16. 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 POC GLUCOSE SCREEN Routine 06/20/2024 11:06 AM LONG TERM CARE PHARMACIST .CBC Routine 06/20/2024 10:35 AM LONG TERM CARE PHARMACIST Adenocarcinoma, NOS of stomach, NOS CARCINOEMBRYONIC ANTIGEN Routine 025 10:35 AM LONG TERM CARE PHARMACIST Adenocarcinoma, NOS of stomach, NOS LACTATE DEHYDROGENASE Routine 06/20/2024 10:35 AM LONG TERM CARE PHARMACIST Adenocarcinoma, NOS of stomach, NOS PHOSPHORUS LEVEL Routine 06/20/2024 10:35 AM LONG TERM CARE PHARMACIST Adenocarcinoma, NOS of stomach, NOS MAGNESIUM LEVEL Routine 06/20/2024 10:35 AM LONG TERM CARE PHARMACIST Adenocarcinoma, NOS of stomach, NOS COMPREHENSIVE METABOLIC PANEL Routine 10:35 AM LONG TERM CARE PHARMACIST Adenocarcinoma, NOS of stomach, NOS COMPLETE BLOOD COUNT W/ DIFFERENTIAL Routine 06/20/2024 10:35 AM LONG TERM CARE PHARMACIST Adenocarcinoma, NOS of stomach, NOS .CBC Routine 06/15/2024 10:39 AM LONG TERM CARE PHARMACIST Adenocarcinoma of stomach CARCINOEMBRYONIC ANTIGEN Routine 025 10:39 AM LONG TERM CARE PHARMACIST Adenocarcinoma, NOS of stomach, NOS LACTATE DEHYDROGENASE Routine 06/15/2024 10:39 AM LONG TERM CARE PHARMACIST Adenocarcinoma, NOS of stomach, NOS PHOSPHORUS LEVEL Routine 06/15/2024 10:39 AM LONG TERM CARE PHARMACIST Adenocarcinoma, NOS of stomach, NOS MAGNESIUM LEVEL Routine 06/15/2024 10:39 AM LONG TERM CARE PHARMACIST Adenocarcinoma, NOS of stomach, NOS COMPREHENSIVE METABOLIC PANEL Routine 10:39 AM LONG TERM CARE PHARMACIST Adenocarcinoma of stomach COMPLETE BLOOD COUNT W/ DIFFERENTIAL Routine 06/15/2024 10:39 AM LONG TERM CARE PHARMACIST Adenocarcinoma of stomach .CBC Routine 06/01/2024 11:10 AM LONG TERM CARE PHARMACIST Adenocarcinoma of stomach TRANSFERRIN Routine 06/01/2024 11:10 AM LONG TERM CARE PHARMACIST Iron deficiency anemia, not otherwise specified Adenocarcinoma of stomach FERRITIN Routine 06/01/2024 11:10 AM LONG TERM CARE PHARMACIST Iron deficiency anemia, not otherwise specified Adenocarcinoma of stomach IRON LEVEL Routine 06/01/2024 11:10 AM LONG TERM CARE PHARMACIST Iron deficiency anemia, not otherwise specified Adenocarcinoma of stomach COMPREHENSIVE METABOLIC PANEL Routine 11:10 AM LONG TERM CARE PHARMACIST Adenocarcinoma of stomach COMPLETE BLOOD COUNT W/ DIFFERENTIAL Routine 06/01/2024 11:10 AM LONG TERM CARE PHARMACIST Adenocarcinoma of stomach POC GLUCOSE SCREEN Routine 05/19/2024 1:52 PM LONG TERM CARE PHARMACIST PATHOLOGY BIOPSY INTERPRETATION Routine 05/19/2024 1:10 PM LONG TERM CARE PHARMACIST Adenocarcinoma of stomach CO ESOPHAGOGASTRODUODENOSCOP Y US SCOPE W/ADJ STRXRS 05/19/2024 12:34 PM LONG TERM CARE PHARMACIST Adenocarcinoma of stomach Case Notes 04/24- WAITING FOR TRIAGE TO NC FOR 05/01- Special Needs PUBLIC ADMINISTRATION TEACHER [place] Call Completed 04/30/24ad laproscopy on 04/15/24 POC GLUCOSE SCREEN Routine 05/19/2024 12:21 PM LONG TERM CARE PHARMACIST .CBC Routine 05/18/2024 10:55 AM LONG TERM CARE PHARMACIST Adenocarcinoma, NOS of stomach, NOS CARCINOEMBRYONIC ANTIGEN Routine 024 10:55 AM LONG TERM CARE PHARMACIST Adenocarcinoma, NOS of stomach, NOS LACTATE DEHYDROGENASE Routine 05/18/2024 10:55 AM LONG TERM CARE PHARMACIST Adenocarcinoma, NOS of stomach, NOS PHOSPHORUS LEVEL Routine 05/18/2024 10:55 AM LONG TERM CARE PHARMACIST Adenocarcinoma, NOS of stomach, NOS MAGNESIUM LEVEL Routine 05/18/2024 10:55 AM LONG TERM CARE PHARMACIST Adenocarcinoma, NOS of stomach, NOS COMPREHENSIVE METABOLIC PANEL Routine 10:55 AM LONG TERM CARE PHARMACIST Adenocarcinoma, NOS of stomach, NOS COMPLETE BLOOD COUNT W/ DIFFERENTIAL Routine 05/18/2024 10:55 AM LONG TERM CARE PHARMACIST Adenocarcinoma, NOS of stomach, NOS .CBC Routine 05/04/2024 11:34 AM LONG TERM CARE PHARMACIST Adenocarcinoma, NOS of stomach, NOS RESEARCH PROTOCOL [id number] Routine 05/04 11:34 AM LONG TERM CARE PHARMACIST Adenocarcinoma of stomach CARCINOEMBRYONIC ANTIGEN Routine 024 11:34 AM LONG TERM CARE PHARMACIST Adenocarcinoma, NOS of stomach, NOS LACTATE DEHYDROGENASE Routine 05/04/2024 11:34 AM LONG TERM CARE PHARMACIST Adenocarcinoma, NOS of stomach, NOS PHOSPHORUS LEVEL Routine 05/04/2024 11:34 AM LONG TERM CARE PHARMACIST Adenocarcinoma, NOS of stomach, NOS MAGNESIUM LEVEL Routine 05/04/2024 11:34 AM LONG TERM CARE PHARMACIST Adenocarcinoma, NOS of stomach, NOS COMPREHENSIVE METABOLIC PANEL Routine 11:34 AM LONG TERM CARE PHARMACIST Adenocarcinoma, NOS of stomach, NOS COMPLETE BLOOD COUNT W/ DIFFERENTIAL Routine 05/04/2024 11:34 AM LONG TERM CARE PHARMACIST Adenocarcinoma, NOS of stomach, NOS VERIFY CATHETER TIP PLACEMENT Routine 3:50 PM LONG TERM CARE PHARMACIST Adenocarcinoma of stomach POC GLUCOSE SCREEN Routine 04/15/2024 3:21 PM LONG TERM CARE PHARMACIST XR CHEST 1 VW PORTABLE Routine 2:45 PM LONG TERM CARE PHARMACIST POC GLUCOSE SCREEN Routine 04/15/2024 1:05 PM LONG TERM CARE PHARMACIST POC GLUCOSE SCREEN Routine 04/15/2024 12:52 PM LONG TERM CARE PHARMACIST CYTOLOGY NON-BAND SCROLL SAW OPERATOR INTERPRETATION Routine 04/15/2024 12:33 PM LONG TERM CARE PHARMACIST Adenocarcinoma of stomach PATHOLOGY SURGICAL INTERPRETATION Routine 04/15/2024 12:13 PM LONG TERM CARE PHARMACIST Adenocarcinoma of stomach FL CENTRAL VENOUS PLACE EXCHANGE Routine 04/15/2024 11:40 AM LONG TERM CARE PHARMACIST Adenocarcinoma of stomach POC GLUCOSE SCREEN Routine 04/15/2024 9:22 AM LONG TERM CARE PHARMACIST CO INSJ TUNNELED CTR VAD W/SUBQ PORT AGE 5 YR/> 04/15/2024 9:16 AM LONG TERM CARE PHARMACIST Adenocarcinoma of stomach Special Needs MTL@0800 CO US VASC ACCESS SITS VSL PATENCY NDL ENTRY 04/15/2024 9:16 AM LONG TERM CARE PHARMACIST Adenocarcinoma of stomach Special Needs MTL@0800 CO FLUORO CENTRAL VENOUS ACCESS DEV PLACEMENT 04/15/2024 9:16 AM LONG TERM CARE PHARMACIST Adenocarcinoma of stomach Special Needs MTL@0800 CO LAPS ABD PRTM&OMENTUM DX W/WO SPEC BR/WA SPX 04/15/2024 9:16 AM LONG TERM CARE PHARMACIST Adenocarcinoma of stomach Special Needs MTL@0800 CT ABDOMEN PELVIS W CONTRAST Routine 11:18 AM LONG TERM CARE PHARMACIST .CBC Routine 04/12/2024 9:04 AM LONG TERM CARE PHARMACIST LIPASE LEVEL Routine 04/12/2024 9:04 AM LONG TERM CARE PHARMACIST AMYLASE LEVEL Routine 04/12/2024 9:04 AM LONG TERM CARE PHARMACIST LACTATE DEHYDROGENASE Routine 04/12/2024 9:04 AM LONG TERM CARE PHARMACIST FRACTIONATED BILIRUBIN Routine 9:04 AM LONG TERM CARE PHARMACIST PHOSPHORUS LEVEL Routine 04/12/2024 9:04 AM LONG TERM CARE PHARMACIST MAGNESIUM LEVEL Routine 04/12/2024 9:04 AM LONG TERM CARE PHARMACIST COMPREHENSIVE METABOLIC PANEL Routine 9:04 AM LONG TERM CARE PHARMACIST COMPLETE BLOOD COUNT W/ DIFFERENTIAL Routine 04/12/2024 9:04 AM LONG TERM CARE PHARMACIST .CBC Routine 04/09/2024 11:09 AM LONG TERM CARE PHARMACIST Encounter for other preprocedural examination Atherosclerosis of coronary 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, not otherwise specified THYROID STIMULATING HORMONE Routine 03/21 11:09 AM LONG TERM CARE PHARMACIST Encounter for other preprocedural examination Atherosclerosis of coronary 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, not otherwise specified HEMOGLOBIN A1C Routine 04/09/2024 11:09 AM LONG TERM CARE PHARMACIST 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 Encounter for other preprocedural examination COMPREHENSIVE METABOLIC PANEL Routine 11:09 AM LONG TERM CARE PHARMACIST Encounter for other preprocedural examination Atherosclerosis of coronary 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, not otherwise specified COMPLETE BLOOD COUNT W/ DIFFERENTIAL Routine 04/09/2024 11:09 AM LONG TERM CARE PHARMACIST Encounter for other preprocedural examination Atherosclerosis of coronary 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, not otherwise specified EKG, 12-LEAD (SCHEDULED) Routine 04/09/2024 Adenocarcinoma of stomach Hyperlipidemia, not otherwise specified Encounter for other preprocedural examination Atherosclerosis of coronary 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, not otherwise specified PATHOLOGY OUTSIDE INTERPRETATION Routine 04/02/[address] ABDOMEN AND PELVIS Routine 2023 8:21 AM LONG TERM CARE PHARMACIST Cancer OSI CHEST Routine 03/23/2024 7:37 PM LONG TERM CARE PHARMACIST Cancer OSI CT CHEST ABDOMEN PELVIS Routine 08/2023 7:37 PM LONG TERM CARE PHARMACIST Cancer OSI CHEST Routine 03/23/2024 7:37 PM LONG TERM CARE PHARMACIST Cancer OSI CT CHEST Routine 03/22/2024 8:21 AM LONG TERM CARE PHARMACIST Cancer OSI CT ABDOMEN AND PELVIS Routine [...] INTRAOPERATIVE US STAT 01/02/2024 7:13 AM CDT CO ULTRASONIC GUIDANCE INTRAOPERATIVE 01/02/2024 6:08 AM CDT Renal mass [facility] Ne[email or web address]Please collect and send tissue to pathology window with appropriate label. CO LAPAROSCOPY SURG PARTIAL NEPHRECTOMY 01/02/2024 6:08 AM CDT Renal mass Special Needs [email or web address]:Please collect and send tissue to pathology window [...] 4.1 - 10.5 K/uL 10/05/2024 11:31 AM [facility] Red Blood Cell 3.99(L) 4.30 - 6.04 M/uL 10/05/2024 11:31 AM [facility] Hemoglobin 10.2(L) 13.3 - 17.4 g/dL 10/05/2024 11:31 AM [facility] Hematocrit 33.4(L) 39.5 - 51.8 % 10/05/2024 11:31 AM [facility] Mean Cell Volume 84 82 - 99 fL 10/05/2024 11:31 AM [facility] Mean Cell Hemoglobin 25.6(L) 26.6 - 33.2 pg 10/05/2024 11:31 AM [facility] Mean Cell Hemoglobin Concentration 30.5(L) 31.1 - 35.2 g/dL 10/05/2024 11:31 AM [facility] RDW-SD 46.2 37.5 - 49.7 fL 10/05/2024 11:31 AM [facility] Red Cell Diameter Width 15.2 11.6 - 15.5 % 10/05/2024 11:31 AM [facility] Platelet 176 160 - 397 K/uL 10/05/2024 11:31 AM [facility] Mean Platelet Volume 9.8 9.1 - 12.6 fL 10/05/2024 11:31 AM [facility] INRBC 0.0 0.0 - 0.1 /100 WBC 10/05/2024 11:31 AM [facility] Comment: The INRBC (instrument NRBC) value reflects the enumeration of nucleated red blood cells contained in a 200uL sample of whole blood analyzed by the instrument. This value may differ from the NRBC value reported in a manual differential, which is based on a 100 cell differential. Neutrophil % 70.2 43.2 - 72.7 % 10/05/2024 11:31 AM [facility] Lymphocyte % 18.0 16.8 - 46.2 % 10/05/2024 11:31 AM [facility] Monocyte % 9.2 5.1 - 12.5 % 10/05/2024 11:31 AM [facility] Eosinophil % 2.0 0.4 - 6.3 % 10/05/2024 11:31 AM [facility] Basophil % 0.3 0.2 - 1.4 % 10/05/2024 11:31 AM [facility] IGRE % 0.3 0.1 - 1.5 % 10/05/2024 11:31 AM [facility] Comment:The IGRE% includes M etamyelocytes, Myelocytes and Promyelocytes. Neutrophil Abs 4.26 1.95 - 7.25 K/uL 10/05/2024 11:31 AM [facility] Lymphocyte Abs 1.09 1.01 - 3.24 K/uL 10/05/2024 11:31 AM [facility] Monocyte Abs 0.56 0.24 - 0.85 K/uL 10/05/2024 11:31 AM [facility] Eosinophil Abs 0.12 0.02 - 0.50 K/uL 10/05/2024 11:31 AM [facility] Basophil Abs 0.02 0.02 - 0.09 K/uL 10/05/2024 11:31 AM [facility] IG Abs 0.02 0.01 - 0.12 K/uL 10/05/2024 11:31 AM [facility] Blood Peripheral blood specimen / Unknown Venipuncture / Unknown 10/05/2024 11:15 AM T 10/05/2024 11:26 AM [facility] Marianela Hutchinson MD LAB BLOOD ORDERABLES Final Re sult DIDIER SEXTON [address] [facility]. [address] [place] [address] * (ABNORMAL) Comprehensive Metabolic Panel (10/05/2024 11:15 AM CDT) Only the most recent of13 resultswithin the time period is included. Bilirubin Total <0.3 0.0 - 1.2 mg/dL 10/05/2024 12:37 PM CDT [facility] Comment:Indocyanine Green (I CG) may cause falsely elevated bilirubin results. Total and direct bilirubin must not be measured from samples containing indocyanine green. False elevation of total bilirubin can be seen in patients with IgG concentrations above 28 g/L. eGFR 101 >=60 mL/min/1. 73 sq. m 10/05/2024 12:37 PM CDT [facility] Comment: The [...] - 8.3 gm/dL 10/05/2024 12:37 PM CDT [facility] Calcium Level Total 8.9 8.2 - 10.2 mg/dL 10/05/2024 12:37 PM CDT [facility] Alkaline Phosphatase 98 40 - 129 U/L 10/05/2024 12:37 PM CDT [facility] Albumin Level 3.5 3.5 - 5.2 gm/dL 10/05/2024 12:37 PM CDT [facility] AST 24 <=40 U/L 10/05/2024 12:37 PM CDT [facility] ALT 13 <=41 U/L 10/05/2024 12:37 PM CDT [facility] Sodium Level 139 136 - 145 mmol/L 10/05/2024 12:37 PM CDT [facility] Potassium Level 4.2 3.4 - 4.5 mmol/L 10/05/2024 12:37 PM CDT [facility] Chloride 103 98 - 107 mmol/L 10/05/2024 12:37 PM CDT [facility] CO2 26 22 - 29 mmol/L 10/05/2024 12:37 PM CDT [facility] Anion Gap 10 4 - 14 mmol/L 10/05/2024 12:37 PM CDT [facility] Creatinine 0.82 0.67 - 1.17 mg/dL 10/05/2024 12:37 PM CDT [facility] BUN 8 6 - 23 mg/dL 10/05/2024 12:37 PM CDT [facility] Glucose Level 133(H) 70 - 99 mg/dL 10/05/2024 12:37 PM CDT [facility] Comment: Effective 12/14/15, the glucose reference intervals have been updated based on [place] [employer] guidelines (Standards of Medical Care [...] ORDERABLES Final Re sult Performing Organization Address City/[facility]/ZIP Co de Phone Number [facility] Unless otherwise noted, all lab tests performed by: Division of Pathology and Laboratory Medicine [address] [place] [id number] * (ABNORMAL) Phosphorus Level (09/07/2024 10:49 AM CDT) Only the most recent of8 resultswithin the time period is included. Phosphorus Level 2.4(L) 2.5 - 4.5 mg/dL 09/07/2024 11:49 AM CDT [facility] Blood Peripheral blood specimen / Unknown Port / Unknown 09/07/2024 10:49 AM CDT 09/07/2024 10:50 AM CDT Gillian Gomez PA-C LAB BLOOD ORDERABLES Final Result Performing Organization Address [facility] Co de Phone Number [facility] Unless otherwise noted, all lab tests performed by: Division of Pathology and Laboratory Medicine [address] [place] [address] * Magnesium Level (09/07/2024 10:49 AM CDT) Only the most recent of8 resultswithin the time period is included. Magnesium Level 1.8 1.6 - 2.6 mg/dL 09/07/2024 11:49 AM CDT [facility] Blood Peripheral blood specimen / Unknown Port / Unknown 09/07/2024 10:49 AM CDT 09/07/2024 10:50 AM CDT Gillian Gomez PA-C LAB BLOOD ORDERABLES Final Result Performing Organization Address City/[facility]/ZIP Co de Phone Number [facility] Unless otherwise noted, all lab tests performed by: Division of Pathology and Laboratory Medicine [address] [place] [address] * LDH (09/07/2024 10:49 AM CDT) Only the most recent of8 resultswithin the time period is included. LDH 148 135 - 225 U/L 09/07/2024 11:49 AM CDT [facility] Blood Peripheral blood specimen / Unknown Port / Unknown 09/07/2024 10:49 AM CDT 09/07/2024 10:50 AM CDT Narrative [facility] - 09/07/2024 11:49 AM CDT Results greater than 1651 U/L may not be reliable due to matrix effect with extended dilution as it exceeds the speech coach's recommended limit. Caution should be exercised when interpreting such values and done in conjunction with clinical context. Gillian Gomez PA-C LAB BLOOD ORDERABLES Final Result [facility] Unless otherwise noted, all lab tests performed by: Division of Pathology and Laboratory Medicine [address] [place] [address] * CEA (09/07/2024 10:49 AM CDT) Only the most recent of7 resultswithin the time period is included. Carcinoembryonic Antigen 1.9 <=3.8 ng/mL 09/07/2024 12:08 PM CDT [facility] Blood Peripheral blood specimen / Unknown Port / Unknown 09/07/2024 10:49 AM CDT 09/07/2024 10:50 AM CDT Narrative [facility] - 09/07/2024 12:08 PM CDT Reference Ranges (age 20-69 years): Non-smoker: <= 3.8 ng/mL Smoker: <= 5.5 ng/mL This test is measured by electrochemiluminescence immunoassay on Cornelius Nikki immunoassay analyzers. Results obtained in different methods are not interchangeable. Gillian Gomez PA-C LAB BLOOD ORDERABLES Final Result Performing Organization Address City/[facility]/ZIP Co de Phone Number [facility] Unless otherwise noted, all lab tests performed by: Division of Pathology and Laboratory Medicine [address] [place] [address] * CT Chest Abdomen Pelvis with Contrast (07/15/2024 4:38 PM LONG TERM CARE PHARMACIST) Anatomical Region Laterality Modality Abdomen, Pelvis, Chest Computed Tomography 07/15/2024 5:39 PM LONG TERM CARE PHARMACIST Impressions 07/15/2024 9:45 PM LONG TERM CARE PHARMACIST 1. Redemonstration of diffuse wall thickening of [...] and potentially actionable. Narrative 07/15/2024 9:45 PM LONG TERM CARE PHARMACIST FULL RESULT: Examination: CT CHEST ABDOMEN PELVIS [...] CT ORDERABLES Final Result * Research Protocol [id number] (07/15/2024 10:01 AM LONG TERM CARE PHARMACIST) Only the most recent of2 resultswithin the time period is included. Research Protocol Specimen Specimen Collected, Ready for Pickup. 07/15/2024 12:00 PM LONG TERM CARE PHARMACIST [facility] Blood Venipuncture / Unknown 07/15/2024 10:01 AM LONG TERM CARE PHARMACIST 07/15/2024 10:10 AM LONG TERM CARE PHARMACIST us Marianela Hutchinson MD RESEARCH LAB Z CODES Final Re sult [facility] Unless otherwise noted, all lab tests performed by: Division of Pathology and Laboratory Medicine [address] [place] [id number] * IHC Workup (07/07/2024 12:29 PM LONG TERM CARE PHARMACIST) Tissue 07/07/2024 12:2 9 PM LONG TERM CARE PHARMACIST 07/07/2024 12:29 PM LONG TERM CARE PHARMACIST Gillian Gomez PA-C, [facility] ORDERABLE S Final Result Performing Organization Address [facility] Co de Phone Number [facility] [address] [address], [place] * (ABNORMAL) POC Glucose Screen - Fingerstick (06/30/2024 1:23 PM LONG TERM CARE PHARMACIST) Only the most recent of23 resultswithin the time period is included. Glucose Screen 168(H) 70 - 99 mg/dL 06/30/2024 1:25 PM LONG TERM CARE PHARMACIST [facility] POC Sample Type Capillary 06/30/2024 1:25 PM LONG TERM CARE PHARMACIST [facility] Blood 06/30/2024 1:23 PM LONG TERM CARE PHARMACIST 06/30/2024 1:25 PM LONG TERM CARE PHARMACIST Narrative [facility] - 06/30/2024 1:25 PM LONG TERM CARE PHARMACIST Capillary blood samples, e.g. obtained by fingerstick, [...] POCT ORDERABLES - DE VICE Final Result [facility] Unless otherwise noted, all lab tests performed by: Division of Pathology and Laboratory Medicine [address] [place] [address] * Pathology Biopsy Interpretation (06/30/2024 12:51 PM LONG TERM CARE PHARMACIST) Only the most recent of2 resultswithin the time period is included. Addendum 1 By immunohistochemistry, approximately 10% of the tumor cells show weakly to moderately cytoplasmic staining for claudin 18. By immunohistochemistry the combined positive score (CPS) for PD-L1 is <1. 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 07/10/2024 8:47 AM [facility] at 1826 LONG TERM CARE PHARMACIST Gross Description A: Esophagus, lower esophageal ulcer at 37cm: Multiple soft light castillo tissue fragments, 0.7 x 0.6 x 0.1 cm in aggregate, entirely submitted in A1. ET 07/10/2024 8:47 AM [facility] Biomarker Block(s) Block for biomarker testing: A1 07/10/2024 8:47 AM [facility] Disclaimer "Some tests reported here may have been developed and performance characteristics determined by [facility] Pathology and Laboratory Medicine. These tests have not been specifically cleared or approved by the U.S. Food and Drug Administration. If applicable, controls were reviewed and showed appropriate reactivity." 07/10/2024 8:47 AM [facility] Tissue (Esophagus) 06/30/2024 12:51 PM LONG TERM CARE PHARMACIST 06/30/2024 2:51 PM LONG TERM CARE PHARMACIST Brandon Galo MD LAB PATHOLOGY ORDERA CARMEL Edited Result - Final [facility] [address] [place] [address], [place] * (ABNORMAL) POC Chem 8 (06/30/2024 11:10 AM [facility]) Only the most recent of2 resultswithin the time period is included. POC Sodium 136(L) 138 - 146 mmol/L 06/30/2024 11:13 AM [facility] POC Potassium 4.5 3.5 - 4.9 mmol/L 06/30/2024 11:13 AM [facility] POC Chloride 100 98 - 109 mmol/L 06/30/2024 11:13 AM [facility] POC VTCO2 27 24 - 29 mmol/L 06/30/2024 11:13 AM [facility] POC Anion Gap 14 10 - 20 mmol/L 06/30/2024 11:13 AM [facility] POC BUN 30(H) 8 - 26 mg/dL 06/30/2024 11:13 AM [facility] POC Creatinine 1.1 0.6 - 1.3 mg/dL 06/30/2024 11:13 AM [facility] Comment:Medications, especia lly hydroxyurea or supplements, such as ascorbate, can interfere with test results causing a falsely and significantly higher result than expected. If a problem is suspected with a patient's result, a sample should be sent to the laboratory for confirmatory testing. POC I Glu 182(H) 70 - 99 mg/dL 06/30/2024 11:13 AM [facility] Comment:Medications, especia lly hydroxyurea or supplements, such as ascorbate, can interfere with test results causing a falsely and significantly higher result than expected. If a problem is suspected with a patient's result, a sample should be sent to the laboratory for confirmatory testing. POC Ionized Calcium 1.26 1.12 - 1.32 mmol/L 06/30/2024 11:13 AM [facility] POC Hct 39.0 38.0 - 51.0 % 06/30/2024 11:13 AM [facility] POC Hgb 13.3 12.0 - 17.0 gm/dL 06/30/2024 11:13 AM [facility] Comment:Hematocrit values fr om the [...] POC Sample Type Venous 11:13 AM [facility] POC eGFR 77 >=60 mL/min/1.7 3 sq. m 06/30/2024 11:13 AM [facility] Comment: The eGFRcr is calculated [...] for CKD. Blood 06/30/2024 11:1 0 AM LONG TERM CARE PHARMACIST 06/30/2024 11:13 AM [facility] - 06/30/2024 11:13 AM [facility] Method description: The i-STAT is an [...] POCT ORDERABLES - DE VICE Final Result [facility] Unless otherwise noted, all lab tests performed by: Division of Pathology and Laboratory Medicine [address] [place] [address] * EKG, 12-Lead (Scheduled) (06/29/2024) Only the most recent of2 resultswithin the time period is included. Mary Kay Santamaria APRN ECG ORDERABLES Final R esult Performing Organization Address [facility] Co de Phone Number [facility] * PETCT F18 FDG (Fluorodeoxyglucose) with contrast (06/20/2024 12:42 PM LONG TERM CARE PHARMACIST) Anatomical Region Laterality Modality Whole Body Positron Emissio n Tomography (PET) 06/20/2024 3:10 PM LONG TERM CARE PHARMACIST Impressions 06/20/2024 4:38 PM LONG TERM CARE PHARMACIST Biopsy-proven malignancy in the region of the [...] and potentially actionable. Narrative 06/20/2024 4:38 PM LONG TERM CARE PHARMACIST FULL RESULT: Examination: 18F-FDG-PET/CT with contrast, 06/20/2024 [...] * Transferrin with TIBC (06/01/2024 11:10 AM LONG TERM CARE PHARMACIST) Transferrin 211 200 - 360 mg/dL 06/01/2024 12:15 PM LONG TERM CARE PHARMACIST [facility] Total Iron Binding Capacity 295 250 - 450 mcg/dL 06/01/2024 12:15 PM LONG TERM CARE PHARMACIST [facility] Blood Peripheral blood specimen / Unknown Venipuncture / Unknown 06/01/2024 11:10 AM LONG TERM CARE PHARMACIST 06/01/2024 11:23 AM LONG TERM CARE PHARMACIST Result [facility] Marianela Hutchinson MD LAB BLOOD ORDERABLES Final Re sult [facility] Unless otherwise noted, all lab tests performed by: Division of Pathology and Laboratory Medicine [address] [place] [address] * (ABNORMAL) Iron Level (06/01/2024 11:10 AM LONG TERM CARE PHARMACIST) Iron Level 38(L) 59 - 158 mcg/dL 06/01/2024 12:15 PM LONG TERM CARE PHARMACIST [facility] Is patient fasting? No 06/01/2024 12:15 PM LONG TERM CARE PHARMACIST [facility] Blood Peripheral blood specimen / Unknown Venipuncture / Unknown 06/01/2024 11:10 AM LONG TERM CARE PHARMACIST 06/01/2024 11:23 AM LONG TERM CARE PHARMACIST Marianela Hutchinson MD LAB BLOOD ORDERABLES Final Re sult [facility] Unless otherwise noted, all lab tests performed by: Division of Pathology and Laboratory Medicine [address] [place] [address] Unless otherwise noted, all lab tests performed by: Division of Pathology and Laboratory Medicine [address] [place] [address] * Ferritin Level (06/01/2024 11:10 AM LONG TERM CARE PHARMACIST) Ferritin Level 59 30 - 400 ng/mL 06/01/2024 12:15 PM LONG TERM CARE PHARMACIST [facility] Blood Peripheral blood specimen / Unknown Venipuncture / Unknown 06/01/2024 11:10 AM LONG TERM CARE PHARMACIST 06/01/2024 11:23 AM LONG TERM CARE PHARMACIST Narrative [facility] - 06/01/2024 12:15 PM LONG TERM CARE PHARMACIST Reference range established for age 20 - 60 years us Marianela Hutchinson MD LAB BLOOD ORDERABLES Final Re sult [facility] Unless otherwise noted, all lab tests performed by: Division of Pathology and Laboratory Medicine [address] [place] [id number] * Tip Verification Central Vascular Access Device (04/15/2024 3:50 PM LONG TERM CARE PHARMACIST) Narrative John Fong MD - 04/15/2024 3:50 PM LONG TERM CARE PHARMACIST John Fong MD 04/15/2024 3:50 PM Central Vascular Access Device Tip Verification Performed by: John Fong MD Authorized by: John Fong MD [employer] Properties Date device placed: 04/15/2024 Device placement location: [facility] Catheter Type: Implanted venous port Catheter lumen: Single lumen Vein location: Internal jugular vein Laterality: Right Tip in good position and cleared for infusion John Fong MD IV THERAPY ORDERABLES Final Re sult * XR Chest 1 View Portable (04/15/2024 2:45 PM LONG TERM CARE PHARMACIST) Anatomical Region Laterality Modality Chest Digital Radiogra phy 04/15/2024 2:50 PM LONG TERM CARE PHARMACIST Impressions 04/15/2024 2:53 PM LONG TERM CARE PHARMACIST 1. Right infusion port catheter terminates over [...] and potentially actionable. Narrative 04/15/2024 2:53 PM LONG TERM CARE PHARMACIST FULL RESULT: Examination: XR CHEST 1 VW [...] IMAGING ORDERAB LES Final Result * Cytology Non-Chief Communications Officer Interpretation (04/15/2024 12:33 PM LONG TERM CARE PHARMACIST) Gross Description 4 Pap Stain Slides 750 ml. clear yellow fluid Specimen concentrated by cytocentrifugation technique 4 4:07 PM LONG TERM CARE PHARMACIST [facility] Major Classification [facility]/benign 4 4:07 PM LONG TERM CARE PHARMACIST [facility] at 1607 LONG TERM CARE PHARMACIST Diagnosis Peritoneal washing: No metastatic carcinoma identified Reactive mesothelial cells and histiocytes 4 4:07 PM LONG TERM CARE PHARMACIST [facility] at 1607 LONG TERM CARE PHARMACIST Retained/Biomark er Testing SR:4S 4 4:07 PM LONG TERM CARE PHARMACIST [facility] Informational Points Some tests reported here may have been developed and performance characteristics determined by [facility] Pathology and Laboratory Medicine. These tests have not been specifically cleared or approved by the U.S. Food and Drug Administration. 4 4:07 PM LONG TERM CARE PHARMACIST [facility] Washing (Peritoneal Washing) 04/15/2024 12:33 PM LONG TERM CARE PHARMACIST 04/15/2024 1:10 PM LONG TERM CARE PHARMACIST John Fong MD LAB CYTOLOGY ORDERABLES Final Result Performing Organization Address City/State/[facility] Co de Phone Number [facility] [address] [place] [id number], * Pathology Surgical Interpretation (04/15/2024 12:13 PM LONG TERM CARE PHARMACIST) Only the most recent of2 resultswithin the time period is included. Submitted Clinical History Adenocarcinoma of stomach [C16.9] 04/20/2024 8:13 PM LONG TERM CARE PHARMACIST [facility] Diagnosis A. Falciform ligament, resection: Fibroadipose tissue, no tumor present 04/20/2024 8:13 PM LONG TERM CARE PHARMACIST [facility] at 2013 LONG TERM CARE PHARMACIST Gross Description A: Falciform ligament, falciorm ligament biopsy....or 16: Consists of a fragment of castillo-yellow, lobulated fat (0.8 x 0.6 x 0.5 cm) entirely submitted in cassette A1. EF 04/20/2024 8:13 PM LONG TERM CARE PHARMACIST [facility] Disclaimer "Some tests reported here may have been developed and performance characteristics determined by [facility]ology and Laboratory Medicine. These tests have not been specifically cleared or approved by the U.S. Food and Drug Administration. If applicable, controls were reviewed and showed appropriate reactivity." 04/20/2024 8:13 PM LONG TERM CARE PHARMACIST [facility] Tissue (Falciform Ligament) 04/15/2024 12:13 PM LONG TERM CARE PHARMACIST 04/15/2024 1:18 PM LONG TERM CARE PHARMACIST John Fong MD LAB PATHOLOGY ORDERABLES Final Result [facility] [address] [address], [place] * [place] [facility] Exchange (04/15/2024 11:40 AM LONG TERM CARE PHARMACIST) Narrative Systemgenerated, Documentation - 04/15/2024 11:40 AM LONG TERM CARE PHARMACIST This procedure requires no interpretation from the radiologist. John Fong MD IMG FLUOROSCOPY ORDERABLES Fin al Result * CT Abdomen Pelvis with IV Contrast (04/12/2024 11:18 AM LONG TERM CARE PHARMACIST) Anatomical Region Laterality Modality Abdomen, Pelvis Computed Tomogra phy 04/12/2024 11:5 2 AM LONG TERM CARE PHARMACIST Impressions 04/12/2024 12:11 PM LONG TERM CARE PHARMACIST Wall thickening and slight mucosal irregularity of [...] and potentially actionable. Narrative 04/12/2024 12:11 PM LONG TERM CARE PHARMACIST FULL RESULT: Examination: CT ABDOMEN PELVIS W [...] Result * Fractionated Bilirubin (04/12/2024 9:04 AM LONG TERM CARE PHARMACIST) Bilirubin Direct 04/12/20 9:47 AM LONG TERM CARE PHARMACIST [facility] Comment: Direct and indirect bilirubin will not be reported when Total bilirubin result is <0.3 mg/dL Indocyanine Green (ICG) may cause falsely elevated bilirubin results. Total and direct bilirubin must not be measured from samples containing indocyanine green. Bilirubin Indirect 2023 9:47 AM LONG TERM CARE PHARMACIST [facility] Comment:Direct and indirect bilirubin will not be reported when Total bilirubin result is <0.3 mg/dL Bilirubin Total <0.3 0.0 - 1.2 mg/dL 04/12/2024 9:47 AM LONG TERM CARE PHARMACIST [facility] Comment: Direct and [...] Unknown Venipuncture / Unknown 04/12/2024 9:04 AM LONG TERM CARE PHARMACIST 04/12/2024 9:08 AM LONG TERM CARE PHARMACIST us Nghia Zhu MD LAB BLOOD ORDERABLES Final Resu lt Performing Organization Address [facility] Co de Phone Number [facility] Unless otherwise noted, all lab tests performed by: Division of Pathology and Laboratory Medicine [address] [place] [address] * (ABNORMAL) Lipase (04/12/2024 9:04 AM LONG TERM CARE PHARMACIST) Lipase Level 311(H) 13 - 60 U/L 04/12/2024 10:09 AM LONG TERM CARE PHARMACIST [facility] Blood Peripheral blood specimen / Unknown Venipuncture / Unknown 04/12/2024 9:04 AM LONG TERM CARE PHARMACIST 04/12/2024 9:08 AM LONG TERM CARE PHARMACIST Narrative [facility] - 04/12/2024 10:09 AM LONG TERM CARE PHARMACIST Reference range established based on adult population us Nghia Zhu MD LAB BLOOD ORDERABLES Final Resu lt [facility] Unless otherwise noted, all lab tests performed by: Division of Pathology and Laboratory Medicine [address] [place] [address] * (ABNORMAL) Amylase (04/12/2024 9:04 AM LONG TERM CARE PHARMACIST) Amylase Level 171(H) 28 - 100 U/L 04/12/2024 9:47 AM LONG TERM CARE PHARMACIST [facility] Blood Peripheral blood specimen / Unknown Venipuncture / Unknown 04/12/2024 9:04 AM LONG TERM CARE PHARMACIST 04/12/2024 9:08 AM LONG TERM CARE PHARMACIST Nghia Zhu MD LAB BLOOD ORDERABLES Final Resu lt Performing Organization Address City/[facility] Co de Phone Number [facility] Unless otherwise noted, all lab tests performed by: Division of Pathology and Laboratory Medicine [address] [place] [address] * TSH (04/09/2024 11:09 AM LONG TERM CARE PHARMACIST) Pathologist [facility] Thyroid Stimulating Hormone 1.53 0.27 - 4.20 mcunit/mL 04/09/2024 12:23 PM LONG TERM CARE PHARMACIST [facility] Blood Peripheral blood specimen / Unknown Venipuncture / Unknown 04/09/2024 11:09 AM LONG TERM CARE PHARMACIST 04/09/2024 11:19 AM LONG TERM CARE PHARMACIST Ceci Nicholson MD LAB BLOOD ORDERABLES Final Resu lt Performing Organization Address City/[facility] de Phone Number [facility] Unless otherwise noted, all lab tests performed by: Division of Pathology and Laboratory Medicine [address] [place] [address] * (ABNORMAL) Hemoglobin A1c (04/09/2024 11:09 AM LONG TERM CARE PHARMACIST) Only the most recent of2 resultswithin the time period is included. Hemoglobin A1c 7.0(H) 4.3 - 5.6 % 04/09/2024 12:14 PM LONG TERM CARE PHARMACIST [facility] Blood Peripheral blood specimen / Unknown Venipuncture / Unknown 04/09/2024 11:09 AM LONG TERM CARE PHARMACIST 04/09/2024 11:19 AM LONG TERM CARE PHARMACIST Narrative [facility] - 04/09/2024 12:14 PM LONG TERM CARE PHARMACIST HbA1c values >=6.5% are diagnostic of diabetes mellitus. Diagnosis should be confirmed by repeat testing. Therapeutic Action suggested: >8.0% HbA1c; Goal of therapy: <7.0% HbA1c us Ceci Nicholson MD LAB BLOOD ORDERABLES Final Resu lt [facility] Unless otherwise noted, all lab tests performed by: Division of Pathology and Laboratory Medicine [address] [place] [address] * Pathology Outside Interpretation (04/02/2024) Materials Received Accession#, Stained, Block, Unstained Collected Received A. [id number], 20 SS, 0 BLOCKS, 0 USS 04/02/2024 04/22/2024 04/22/2024 5:36 PM LONG TERM CARE PHARMACIST [facility] Diagnosis Outside ([id number], 20 SS, 0 BLOCKS, 0 USS, collected [...] CELL FEATURES. See comment. 04/22/2024 5:36 PM LONG TERM CARE PHARMACIST [facility] at 1736 LONG TERM CARE PHARMACIST Comment Part A. There is no evidence of malignancy on H&E and immunohistochemical stain for Cytokeratin AE1/AE3. Of note, the biopsy may not be field representatives director of the entire lesion. Please correlate with [...] immunohistochemistry: Negative (Score: 0) 04/22/2024 5:36 PM LONG TERM CARE PHARMACIST [facility] Biomarker Block(s) Block for biomarker testing: C1 Normal block: N/A 04/22/2024 5:36 PM LONG TERM CARE PHARMACIST [facility] Disclaimer "Some tests reported here may have been developed and performance characteristics determined by [facility] Pathology and Laboratory Medicine. These tests have not been specifically cleared or approved by the U.S. Food and Drug Administration. If applicable, controls were reviewed and showed appropriate reactivity." 04/22/2024 5:36 PM LONG TERM CARE PHARMACIST [facility] Tissue 04/02/2024 04/22/2024 6:4 0 AM LONG TERM CARE PHARMACIST us Sybil Edmonds MD LAB PATHOLOGY ORDERABLES Final R esult [address] [id number] [place] [address], [place] * OSI CT Abdomen and Pelvis (04/01/2024 8:21 AM LONG TERM CARE PHARMACIST) Only the most recent of2 resultswithin the time period is included. Narrative Systemgenerated, Documentation - 04/27/2024 8:22 AM LONG TERM CARE PHARMACIST Study acquired at another institution. For comparison only. No [facility] originated interpretation requested or available. us Eagle Zhu DO IMG OUTSIDE IMAGE ORDERAB LES Final Result * OSI CT CHEST ABDOMEN PELVIS (03/23/2024 7:37 PM LONG TERM CARE PHARMACIST) Narrative Systemgenerated, Documentation - 04/09/2024 7:37 PM LONG TERM CARE PHARMACIST Study acquired at another institution. For comparison only. No [facility] originated interpretation requested or available. us Margoth Souza MD IMG OUTSIDE IMAGE ORDERABLES Fin al Result * OSI Chest (03/23/2024 7:37 PM LONG TERM CARE PHARMACIST) Only the most recent of4 resultswithin the time period is included. Narrative Systemgenerated, Documentation - 04/09/2024 7:37 PM LONG TERM CARE PHARMACIST Study acquired at another institution. For comparison only. No [facility] originated interpretation requested or available. us Margoth Souza MD IMG OUTSIDE IMAGE ORDERABLES Fin al Result * OSI CT Chest (03/22/2024 8:21 AM LONG TERM CARE PHARMACIST) Narrative Systemgenerated, Documentation - 04/27/2024 8:21 AM LONG TERM CARE PHARMACIST Study acquired at another institution. For comparison only. No [facility] originated interpretation requested or available. us [facility] Regan Zhu DO IMG OUTSIDE IMAGE ORDERAB LES Final Result * (ABNORMAL) Basic Metabolic Panel- Total Calcium (01/03/2024 2:59 PM CDT) Only the most recent of7 resultswithin the time period is included. eGFR 71 >=60 mL/min/1. 73 sq. m 01/03/2024 3:44 PM CDT [facility] Comment: The [...] - 10.2 mg/dL 01/03/2024 3:44 PM CDT [facility] Sodium Level 139 136 - 145 mmol/L 01/03/2024 3:44 PM CDT [facility] Potassium Level 3.9 3.4 - 4.5 mmol/L 01/03/2024 3:44 PM CDT [facility] Chloride 103 98 - 107 mmol/L 01/03/2024 3:44 PM CDT [facility] CO2 28 22 - 29 mmol/L 01/03/2024 3:44 PM CDT [facility] Anion Gap 8 4 - 14 mmol/L 01/03/2024 3:44 PM CDT [facility] Creatinine 1.18(H) 0.67 - 1.17 mg/dL 01/03/2024 3:44 PM CDT [facility] BUN 15 6 - 23 mg/dL 01/03/2024 3:44 PM CDT [facility] Glucose Level 137(H) 70 - 99 mg/dL 01/03/2024 3:44 PM CDT [facility] Comment: Effective 12/14/15, the glucose reference intervals have been updated based on [place] [employer] guidelines (Standards of Medical Care [...] Mcmanus APRN LAB BLOOD ORDERABLES Final Result [facility] Unless otherwise noted, all lab tests performed by: Division of Pathology and Laboratory Medicine [address] [place] [address] * Zinc Transporter 8 Ab (01/03/2024 4:22 AM CDT) Pathologist [facility] Zinc T8 AB <15.0 <15.0 U/mL 01/15/2024 11:18 AM CDT [facility] Comment: ADDITIONAL INFORMATION This test has been modified from the speech coach's instructions. Its performance characteristics were determined by [facility] in a manner consistent with CLIA requirements. This test has not been cleared or approved by the U.S. Food and Drug Administration. Test Performed by: [address] [address] Nutritionalist: Mary Jane Topete Ph.D.; CLIA# [id number] Blood Peripheral blood specimen / Unknown Venipuncture / Unknown 01/03/2024 4:22 AM CDT 01/03/2024 4:55 AM CDT Alicia Mcmanus APRN LAB BLOOD ORDERABLES Final Result Performing Organization Address [facility] Co de Phone Number [facility] * Islet Antigen 2 (IA-2) Antibody (01/03/2024 4:22 AM CDT) IA-2 Antibody 0.00 <=0.02 nmol/L 01/07/2024 12:20 AM CDT [facility] Comment: ADDITIONAL INFORMATION This test was developed and its performance characteristics determined by [facility] in a manner consistent with CLIA requirements. This test has not been cleared or approved by the U.S. Food and Drug Administration. Test Performed by: [address] [address] Nutritionalist: Mary Jane Topete Ph.D.; CLIA# [id number] Blood Peripheral blood specimen / Unknown Venipuncture / Unknown 01/03/2024 4:22 AM CDT 01/03/2024 4:55 AM CDT Alicia Mcmanus APRN LAB BLOOD ORDERABLES Final Result [facility] * GREG Ab Assay (01/03/2024 4:22 AM CDT) Pathologist [facility] GAD65 Ab-Maxwell 0.00 <=0.02 nmol/L 01/07/2024 12:01 AM CDT [facility] Comment: ADDITIONAL INFORMATION This test was developed and its performance characteristics determined by [facility] in a manner consistent with CLIA requirements. This test has not been cleared or approved by the U.S. Food and Drug Administration. Test Performed by: [address] [address] Nutritionalist: Mary Jane Topete Ph.D.; CLIA# [id number] Blood Peripheral blood specimen / Unknown Venipuncture / Unknown 01/03/2024 4:22 AM CDT 01/03/2024 4:55 AM CDT us Alicia Mcmanus APRN LAB BLOOD ORDERABLES Final Result [facility] * Insulin Ab (01/03/2024 4:22 AM CDT) Pathologist [facility] Insulin Ab-Maxwell 0.00 0.00 - 0.02 nmol/L 01/06/2024 5:14 PM CDT [facility] Comment: ADDITIONAL INFORMATION This test was developed and its performance characteristics determined by [facility] in a manner consistent with CLIA requirements. This test has not been cleared or approved by the U.S. Food and Drug Administration. Test Performed by: [facility] - [address] [address] Nutritionalist: Mary Jane Topete Ph.D.; CLIA# [id number] Blood Peripheral blood specimen / Unknown Venipuncture / Unknown 01/03/2024 4:22 AM CDT 01/03/2024 4:55 AM CDT us Alicia Mcmanus APRN LAB BLOOD ORDERABLES Final Result [facility] * C Peptide (01/03/2024 4:22 AM CDT) Pathologist [facility] C-Peptide 2.12 1.10 - 4.40 ng/mL 01/03/2024 5:48 AM CDT [facility] Blood Peripheral blood specimen / Unknown Venipuncture / Unknown 01/03/2024 4:22 AM CDT 01/03/2024 4:55 AM CDT Alicia Mcmanus APRN LAB BLOOD ORDERABLES Final Result [facility] Unless otherwise noted, all lab tests performed by: Division of Pathology and Laboratory Medicine [address] [place] [address] * (ABNORMAL) Hemogram (01/02/2024 7:20 PM CDT) [facility] White Blood Cell 13.8(H) 4.1 - 10.5 K/uL 01/02/2024 7:33 PM CDT [facility] Red Blood Cell 4.74 4.30 - 6.04 M/uL 01/02/2024 7:33 PM CDT [facility] Hemoglobin 12.2(L) 13.3 - 17.4 g/dL 01/02/2024 7:33 PM CDT [facility] Hematocrit 38.6(L) 39.5 - 51.8 % 01/02/2024 7:33 PM CDT [facility] Mean Cell Volume 81(L) 82 - 99 fL 01/02/2024 7:33 PM CDT [facility] Mean Cell Hemoglobin 25.7(L) 26.6 - 33.2 pg 01/02/2024 7:33 PM CDT [facility] Mean Cell Hemoglobin Concentration 31.6 31.1 - 35.2 g/dL 01/02/2024 7:33 PM CDT [facility] RDW-SD 39.1 37.5 - 49.7 fL 01/02/2024 7:33 PM CDT [facility] Red Cell Diameter Width 13.1 11.6 - 15.5 % 01/02/2024 7:33 PM CDT [facility] Platelet 291 160 - 397 K/uL 01/02/2024 7:33 PM CDT [facility] Mean Platelet Volume 9.7 9.1 - 12.6 fL 01/02/2024 7:33 PM CDT [facility] INRBC 0.0 0.0 - 0.1 /100 WBC 01/02/2024 7:33 PM CDT [facility] Comment: The INRBC (instrument NRBC) [...] PRICE LAB BLOOD ORDERABLES Final R esult [facility] Unless otherwise noted, all lab tests performed by: Division of Pathology and Laboratory Medicine [address] [place] [address] * (ABNORMAL) Beta Hydroxy Quant (01/02/2024 7:20 PM CDT) Only the most recent of2 resultswithin the time period is included. Beta-Hydroxybuty rate 0.85(H) 0.02 - 0.27 mmol/L 01/02/2024 8:01 PM CDT [facility] Is patient fasting? No 01/02/2024 8:01 PM CDT [facility] Comment:A fasting specimen i s recommended and results obtained from non-fasting specimens should be interpreted with caution using reference ranges based on fasting status and in conjunction with clinical context. Blood Peripheral blood specimen / Unknown Venipuncture / Unknown 01/02/2024 7:20 PM CDT 01/02/2024 7:24 PM CDT Narrative [facility] - 01/02/2024 8:01 PM CDT Reference range based on fasting. us Alicia Mcmanus APRN LAB BLOOD ORDERABLES Final Result [facility] Unless otherwise noted, all lab tests performed by: Division of Pathology and Laboratory Medicine [address] [place] [address] * (ABNORMAL) ABG+ (ABG, Na, K, Cl, Glu, Hgb, Hct, Lactate, Ion Ca) (01/02/2024 10:38 AM CDT) Only the most recent of2 resultswithin the time period is included. Sodium Arterial 140 136 - 146 mmol/L 01/02/2024 10:44 AM CDT [facility] Potassium Arterial 3.7 3.4 - 4.5 mmol/L 01/02/2024 10:44 AM CDT [facility] Chloride Arterial 103 98 - 106 mmol/L 01/02/2024 10:44 AM CDT [facility] Glucose Arterial 270(H) 70 - 105 mg/dL 01/02/2024 10:44 AM CDT [facility] Hgb Art 12.9(L) 13.5 - 17.5 g/dL 01/02/2024 10:44 AM CDT [facility] Hematocrit Arterial 40(L) 42 - 52 % 01/02/2024 10:44 AM CDT [facility] Lactate Arterial 1.0(H) 0.4 - 0.8 mmol/L 01/02/2024 10:44 AM CDT [facility] Calcium Ionized Arterial 1.14(L) 1.15 - 1.29 mmol/L 01/02/2024 10:44 AM CDT [facility] pH Arterial 7.35 7.35 - 7.45 01/02/2024 10:44 AM CDT [facility] P CO2 Arterial 42.9 35.0 - 48.0 mmHg 01/02/2024 10:44 AM CDT [facility] P O2 Arterial 164(H) 83 - 108 mmHg 01/02/2024 10:44 AM CDT [facility] Bicarbonate Arterial 24 21 - 28 mmol/L 01/02/2024 10:44 AM T [facility] WB Anion Gap 13 7 - 16 mmol/L 01/02/2024 10:44 AM CDT [facility] Base Excess Arterial -2 -2 - 3 mmol/L 01/02/2024 10:44 AM T [facility] Oxygen Saturation Arterial 99 95 - 99 % 01/02/2024 10:44 AM CDT [facility] Oxygen FLOW Rate/ FiO2 01/02/2024 10:44 AM T [facility] O2 Therapy 01/02/2024 10:44 AM T [facility] Art Kirill Test Not Applicable (Arterial Line Draw) 01/02/2024 10:44 AM T [facility] Blood Arterial blood specimen / Unknown Arterial Line / Unknown 01/02/2024 10:38 AM CDT 01/02/2024 10:41 AM CDT Narrative [facility] - 01/02/2024 10:44 AM CDT [...] MD LAB BLOOD ORDERABLES Final Re sult [facility] Unless otherwise noted, all lab tests performed by: Division of Pathology and Laboratory Medicine [facility] [place] [address] * Intraoperative Ultrasound - For Image Storage [...] EXP DATE 01/22/2024 12/23/2023 2:19 PM CDT [facility] Blood Peripheral blood specimen / Unknown Venipuncture / Unknown 12/23/2023 8:51 AM CDT 12/23/2023 9:00 AM CDT us Margoth Souza MD BLOOD BANK TEST ORDERABLES Final Result [facility] - TRANSFUSION SERVICES [facility] [address] [facility] [address] [place] [address] * Preop Updated Expiration (12/23/2023 8:51 AM CDT) PREOP STATUS 01/02/2024 11:33 PM CDT [facility] PREOP EXP DATE 01/02/2024 01/02/2024 11:33 PM CDT [facility] Blood Peripheral blood specimen / Unknown Venipuncture / Unknown 12/23/2023 8:51 AM CDT 12/23/2023 9:00 AM CDT us Margoth Souza MD BLOOD BANK TEST ORDERABLES Final Result [facility] [address] [place] [address] * (ABNORMAL) Urinalysis with Reflex Culture (12/23/2023 8:51 AM CDT) Urine Appearance Clear Clear 12/23/19 9:33 AM CDT [facility] Urine Color Straw Colorless, Straw, Yellow, Dark Yellow, Straw-Yellow 12/23/2023 9:33 AM CDT [facility] Urine Specific Center 1.032 1.003 - 1.035 12/23/2023 9:33 AM CDT [facility] Urine pH 6.0 5.0 - 8.0 12/23/2023 9:33 AM CDT [facility] Urine Glucose >=1000(A) Negative mg/dL 12/23/2023 9:33 AM CDT [facility] Urine Ketones Negative Negative mg/dL 12/23/2023 9:33 AM CDT [facility] Urine Blood Negative Negative 12/23/2023 9:33 AM CDT [facility] Urine Protein 30(A) Negative mg/dL 12/23/2023 9:33 AM CDT [facility] Urine Bilirubin Negative Negative 9:33 AM CDT [facility] Urine Urobilinogen Negative Negative 12/23/2023 9:33 AM CDT [facility] Urine Nitrite Negative Negative 12/23/2023 9:33 AM CDT [facility] Urine Leukocyte Esterase Negative Negative 12/23/2023 9:33 AM CDT [facility] Urine Mucous Not Seen Not Seen, Trace /HPF 12/23/2023 9:33 AM CDT [facility] Urine Bacteria Not Seen Not Seen /HPF 12/23/2023 9:33 AM CDT [facility] Urine Squamous Epithelial Cells OCC Not Seen, OCC, Rare /HPF 12/23/2023 9:33 AM CDT [facility] Urine WBC <1 <=2 /HPF 12/23/2023 9:33 AM CDT [facility] Urine RBC 1 <=2 /HPF 12/23/2023 9:33 AM CDT [facility] Urine Voided urine specimen / Unknown Non-blood Collection / Unknown 12/23/2023 8:51 AM CDT 12/23/2023 9:10 AM CDT Narrative [facility] [facility] - 12/23/2023 9:33 AM CDT Some reporting parameters within the Urinalysis test have changed due to the implementation of new instrumentation in the [facility], allowing greater sensitivity of measurement. Urinalysis results reported by the [facility] using existing instrumentation, as well as Urinalysis testing performed manually or by back-up methodology at the main [place], will remain relatively unchanged. New reporting parameters and units will now be reported for all campuses. Margoth Souza MD URINE ORDERABLES Final Result [facility] Unless otherwise noted, all lab tests performed by: Division of Pathology and Laboratory Medicine [address] [place] [id number] * 30-Day Pre-Op Type and Screen (12/23/2023 8:51 AM CDT) ABORh O POS 12/23/2023 8:45 AM CDT [facility] ABSC Negative 12/23/2023 8:45 AM CDT [facility] BB Criteria Met Criteria met 12/23/2023 8:45 AM CDT [facility] Historical Record Check Complete 12/23/2023 8:45 AM CDT [facility] Blood Peripheral blood specimen / Unknown Venipuncture / Unknown 12/23/2023 8:51 AM CDT 12/23/2023 9:00 AM CDT Margoth Souza MD BLOOD BANK TEST ORDERABLES Final Result [facility] [address] [id number] [place] [address] * TMP Interpretation Exception PreOp Expiration (12/23/2023 8:51 AM CDT) TMP Exception 12/24/2023 10:47 AM CDT [facility] TMP Signature . 12/24/2023 10:47 AM CDT [facility] Blood Peripheral blood specimen / Unknown Venipuncture / Unknown 12/23/2023 8:51 AM CDT 12/23/2023 9:00 AM CDT Margoth Souza MD BLOOD BANK TEST ORDERABLES Final Result Performing Organization Address City/[facility]/ZIP Co de Phone Number [facility] [address] [id number] [place] [address] * ACTH (12/09/2023 9:45 AM CDT) ACTH 22 7 - 63 pg/mL 12/09/2023 12:19 PM CDT [facility] Blood Peripheral blood specimen / Unknown Venipuncture / Unknown 12/09/2023 9:45 AM CDT 12/09/2023 9:52 AM CDT Narrative [facility] - 12/09/2023 12:19 PM CDT Reference range established based on adult population (7 - 10am draws). No established reference values for p.m. draws. Results greater than 1826 pg/mL may not be reliable due to matrix effect with extended dilution as it exceeds the speech coach's recommended limit. ACTH reference intervals are established for the morning hours from 7-10 am. Due to the circadian rhythm of ACTH levels in plasma, the sample collection time must be noted. Caution should be exercised when interpreting such values and done in conjunction with clinical context. Veronica Del Castillo APRN LAB BLOOD ORDERABLES Final Result [facility] Unless otherwise noted, all lab tests performed by: Division of Pathology and Laboratory Medicine [address] [place] [id number] * DHEA Sulfate (12/09/2023 9:45 AM CDT) Pathologist [facility] [place] [id number] 20 - 299 mcg/dL 12/10/2023 12:10 PM CDT [facility] TIFF Comment: Test Performed by: [facility] [address] [place] [address] Nutritionalist: Mary Jane Topete Ph.D.; CLIA# [id number] Blood Peripheral blood specimen / Unknown Venipuncture / Unknown 12/09/2023 9:45 AM CDT 12/09/2023 9:56 AM CDT Veronica Del Castillo VEGETABLE TESTER LAB BLOOD ORDERABLES Final Result [facility] * Cortisol, Total (12/09/2023 9:45 AM CDT) Pathologist [facility] Cortisol 11.39 4.82 - 19.50 mcg/dL 12/09/2023 11:00 AM CDT [facility] Blood Peripheral blood specimen / Unknown Venipuncture / Unknown 12/09/2023 9:45 AM CDT 12/09/2023 9:55 AM CDT Narrative [facility] - 12/09/2023 11:00 AM CDT Cortisol reference [...] 2.47 - 11.9 mcg/dL Veronica Del Castillo VEGETABLE TESTER LAB BLOOD ORDERABLES Final Result [facility] Unless otherwise noted, all lab tests performed by: Division of Pathology and Laboratory Medicine [address] [place] [address] after 10/10/2023 [place] [id number] MEDICARE PART A AND B Advance Directives * Full Code (Latest Code Status on File) Date Activated Date Inactivated Comments 10/02/2024 12:32 PM Update based on Advanced Directive Documentation * Full Code Date Activated Date Inactivated Comments 04/12/2024 1:24 PM 04/12/2024 5:43 PM * Full Code Date Activated Date Inactivated Comments 01/02/2024 1:48 PM 01/03/2024 7:17 PM Care Teams School Psychological Examiner Relationship Specialty Start Date End Date Margoth Souza MD [address] [place] [phone] [email or web address] PCP - General Urology 07/30/23 04/14/24 Marko Eaglerob Spears DO [address] [place] [address] [phone] [email or web address] PCP - External Primary Care Provider Family Practice 04/08/24 Marianela Hutchinson MD [address] [place] [phone] [email or web address] PCP - General Gastrointestinal Medical Oncology 05/04/24 Mary Jane Cassidy MD [address] [place] [phone] [email or web address] Consulting Physician Endocrinology 12/09/23 Barry He MD [address] [place] [phone] [email or web address] Consulting Physician Internal Medicine 12/23/23 Patience Hunt MD [address] [place] [phone] [email or web address] Consulting Physician Endocrinology 12/31/23 Marianela Hutchinson MD [address] [place] [phone] [email or web address] Consulting Physician Gastrointestinal Medical Oncology 04/13/24 Margoth Souza MD [address] [place] [phone] [email or web address] Consulting Physician Urology 04/15/24 Ceci Nicholson MD [address] [place] [phone] [email or web address] Consulting Physician Internal Medicine 04/09/24 Sigifredo Davenport MD [address] [place] [address] [phone] [email or web address] Consulting Physician Internal Medicine 06/29/24 Abilio Ng, PAJeanC [address] [place] [phone] Physician Promotions Director Interventional Radiology 10/02/23
[2024-10-09] MEDS ORDERED: PROMETHAZINE INJ 25 MG/ML AMP ONE (22:25)
[2024-10-09] MEDS ORDERED: METOCLOPRAMIDE 10 MG/2mL INJ ONE (22:25)
--- NOTE | 2024-10-10 01:55 | ER ---
Nurse's Notes [facility] Name: Zeke Mackay Sr Age: 59 yrs Sex: Male : 1965 Arrival Date: 10/09/2024 Time: 21:15 Bed 15 Private MD: Diagnosis: Nausea;Chemotherapy associated nausea Presentation: 10/09 21:36 Chief complaint: Patient states: NAUSEA ALL DAY. WAS SEEN EARLIER THIS MORNING IN THIS dd2 ER AND TREATED. Coronavirus screen: At this time, the client does not indicate any symptoms associated with coronavirus-19. Ebola Screen: No symptoms or risks identified at this time. Initial Sepsis Screen: Does the patient meet any 2 criteria? No. Patient's initial sepsis screen is negative. Does the patient have a suspected source of infection? No. Patient's initial sepsis screen is negative. Risk Assessment: Do you want to hurt yourself or someone else? Patient reports no desire to harm self or others. Onset of symptoms was October 09, 2024. 21:36 Method Of Arrival: Ambulatory dd2 21:36 Acuity: RICKEY 3 dd2 Triage Assessment: 21:39 General: Appears in no apparent distress. uncomfortable, Behavior is calm, cooperative, dd2 appropriate for age. Pain: Denies pain. GI: Reports nausea. 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 - Infectious Disease History:: Denies. - Social history:: Smoking status: Patient denies any tobacco usage or history of. - Family history:: not pertinent. Screenin:20 [facility] ED Fall Risk Assessment (Adult) History of falling in the last 3 months, jr13 including since admission No falls in past 3 months (0 pts) Confusion or Disorientation No (0 pts) Intoxicated or Sedated No (0 pts) Impaired Gait No (0 pts) Mobility Assist Device Used No (0 pt) Altered Elimination No (0 pt) Score/Fall Risk Level 0 - 2 = Low Risk Oriented to surroundings, Maintained a safe environment. Abuse screen: Denies threats or abuse. Denies injuries from another. Nutritional screening: No deficits noted. Tuberculosis screening: No symptoms or risk factors identified. Assessment: 10/10 02:29 GI: jr13 Vital Signs: 10/09 21:00 BP 122 / 90; Pulse 69; Resp 18; Pulse Ox 99% on R/A; jr13 21:36 BP 167 / 83; Pulse 87; Resp 16; Temp 98.3; Pulse Ox 99% on R/A; Weight 82.3 kg; Height dd2 6 ft. 2 in. ; 22:00 BP 158 / 79; Pulse 88; Resp 18; Pulse Ox 98% on R/A; jr13 23:00 BP 148 / 90; Pulse 92; Resp 18; Pulse Ox 98% on R/A; jr13 10/10 00:00 BP 161 / 81; Pulse 83; Resp 18; Pulse Ox 98% on R/A; jr13 01:00 BP 155 / 78; Pulse 86; Resp 18; Pulse Ox 98% on R/A; jr13 02:00 BP 143 / 89; Pulse 87; Resp 18; Pulse Ox 98% on R/A; jr13 10/09 21:36 Body Mass Index 23.30 (82.30 kg, 187.96 cm) dd2 Alicia Coma Score: 06:40 Eye Response: spontaneous(4). Motor Response: obeys commands(6). Verbal Response: sp4 oriented(5). Total: 15. ED Course: 10/09 21:16 Patient arrived in ED. mr 21:18 Jag Horvath MD is Attending Physician. sp4 21:39 Triage completed. dd2 21:39 Arm band placed on right wrist. dd2 22:22 Robinsno Bravo, RN is Primary Nurse. jr13 23:20 Patient has correct armband on for positive identification. Bed in low position. Call jr light in reach. Side rails up X 1. Provided Education on: Educated on plan of care. 10/10 02:29 No provider procedures requiring assistance completed. Patient did not have IV access jr during this emergency room visit. Administered Medications: 10/09 22:38 Drug: metoCLOPramide IM 10 mg IM once Route: IM; Site: right deltoid; jr13 22:38 Drug: Promethazine IM 50 mg IM once Route: IM; Site: left deltoid; jr13 Medication: 23:21 VIS not applicable for this client. jr13 Outcome: 10/10 01:54 Discharge ordered by . kayy 02:30 Discharged to home ambulatory, jr13 02:30 Condition: stable 02:30 Discharge instructions given to patient, 02:31 Patient left the ED. jr13 Signatures: Hollie Garcia, Reg Reg mr Jag Horvath MD MD sp4 RISHABH MCLAUGHLIN RN RN dd2 Robinson Bravo RN RN jr13 Corrections: (The following items were deleted from the chart) 10/09 23: 22:00 BP 125 / 88; Pulse 67bpm; Resp 18bpm; Pulse Ox 98% RA; jr13 13 23:43 23:00 BP 120 / 85; Pulse 65bpm; Resp 18bpm; Pulse Ox 98% RA; jr13 jr13
--- NOTE | 2024-10-10 01:55 | EDPHYS ---
Physician Documentation [facility] Name: Zeke Mackay Sr Age: 59 yrs Sex: Male : 1965 Arrival Date: 10/09/2024 Time: 21:15 Bed 15 Private MD: ED Physician Jag Horvath HPI: 10/09 21:18 This 59 yrs old Male presents to ER via Unassigned with complaints of Nausea. sp4 10/10 06:40 This is a patient with history of intractable nausea vomiting, gastric cancer, sp4 pancreatitis, undergoing treatment for gastric cancer at [facility], right foot diabetic ulcer, previous renal insufficiency, hyponatremia, diabetes, hypertension. Patient presents with worsening nausea or vomiting. Patient was treated for the same problem here yesterday. Patient's medications include aspirin chewable 1 tab daily, atorvastatin bedtime, metoprolol every 12 hours, Farxiga daily, insulin Soliqua , metformin daily, amlodipine daily, sucralfate daily, Protonix twice a day, Augmentin daily, metoclopramide daily, . On presentation patient states she does not want blood work and he only desires medications for nausea. Patient reports nausea secondary to recent chemotherapy on this past Saturday. And patient also declined CT. 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 - Infectious Disease History:: Denies. - Social history:: Smoking status: Patient denies any tobacco usage or history of. - Family history:: not pertinent. ROS: 10/10 06:40 Constitutional: Negative for fever, chills, and weight loss, positive for nausea sp4 without vomiting All other systems are negative, Exam: 06:40 Constitutional: This is a well developed, well nourished patient who is awake, alert, sp4 and in no acute distress. Head/Face: Normocephalic, atraumatic. Eyes: Pupils equal round and reactive to light, extra-ocular motions intact. Lids and lashes normal. Conjunctiva and sclera are not injected. Cornea within normal limits. Periorbital areas with no swelling, redness, or edema. ENT: Nares patent. No nasal discharge, no septal abnormalities noted. Tympanic membranes are normal and external auditory canals are clear. Oropharynx with no redness, swelling, or masses, exudates, or evidence of obstruction, uvula midline. Mucous membranes moist. Neck: Trachea midline, no thyromegaly or masses palpated, and no cervical lymphadenopathy. Supple, full range of motion without nuchal rigidity, or vertebral point tenderness. Chest/axilla: Normal chest wall appearance and motion. Nontender with no deformity. No lesions are appreciated. Cardiovascular: Regular rate and rhythm with a normal S1 and S2. No gallops, murmurs, or rubs. Normal PMI, no JVD. No pulse deficits. Respiratory: Lungs have equal breath sounds bilaterally, clear to auscultation and percussion. No rales, rhonchi or wheezes noted. No increased work of breathing, no retractions or nasal flaring. Abdomen/GI: Soft, with normal bowel sounds. No distension or tympany. No guarding or rebound. No evidence of tenderness throughout. Back: No spinal tenderness. No costovertebral tenderness. Skin: Warm, dry with normal turgor. Normal color with no rashes, no lesions, and no evidence of cellulitis. MS/ Extremity: Pulses equal, no cyanosis. Neurovascular intact. Full, normal range of motion. Neuro: Awake and alert, GCS 15, oriented to person, place, time, and situation. Cranial nerves II-XII grossly intact. Motor strength 5/5 in all extremities. Sensory grossly intact. Psych: Awake, alert, with orientation to person, place and time. Behavior, mood, and affect are within normal limits Vital Signs: 10/09 21:00 BP 122 / 90; Pulse 69; Resp 18; Pulse Ox 99% on R/A; jr13 21:36 BP 167 / 83; Pulse 87; Resp 16; Temp 98.3; Pulse Ox 99% on R/A; Weight 82.3 kg; Height dd2 6 ft. 2 in. ; 22:00 BP 158 / 79; Pulse 88; Resp 18; Pulse Ox 98% on R/A; jr13 23:00 BP 148 / 90; Pulse 92; Resp 18; Pulse Ox 98% on R/A; 10/10 00:00 BP 161 / 81; Pulse 83; Resp 18; Pulse Ox 98% on R/A; jr13 01:00 BP 155 / 78; Pulse 86; Resp 18; Pulse Ox 98% on R/A; jr13 02:00 BP 143 / 89; Pulse 87; Resp 18; Pulse Ox 98% on R/A; 13 10/09 21:36 Body Mass Index 23.30 (82.30 kg, 187.96 cm) dd2 Alicia Coma Score: 06:40 Eye Response: spontaneous(4). Motor Response: obeys commands(6). Verbal Response: sp4 oriented(5). Total: 15. MDM: 10/09 21:20 Medical screening is not applicable. sp4 21:43 ED course: CT report 09/09/2024 - COMPARISON: CT abdomen pelvis August 16, 2024. sp4 FINDINGS: Lung bases: Unremarkable. No mass. No consolidation. Heart: Cardiomegaly without significant pericardial fluid. ABDOMEN: Liver: Unremarkable. No mass. Gallbladder and bile ducts: Tiny calcified stones in the gallbladder. No ductal dilation. Pancreas: No findings to suggest acute pancreatitis. No mass visualized. No ductal dilation. Spleen: Unremarkable. No splenomegaly. Adrenals: Unremarkable. No mass. Kidneys and ureters: Bilateral perinephric fluid. Evidence of previous left renal with resection. No findings to suggest pyelonephritis or hydronephrosis. Stomach and bowel: Mild gastric wall thickening suggesting gastritis. Distal esophageal wall thickening. Elongated gas-filled sigmoid colon extending into the epigastric region. No findings to suggest colitis. Fluid-filled bowel loops. No bowel dilatation or obstruction. No bowel wall thickening. RADIOLOGY SERVICES REPORT Air-fluid level in the stomach. PELVIS: Appendix: No findings to suggest acute appendicitis. Bladder: Mild bladder wall thickening versus artifact of incomplete distention. Reproductive: Mild prostate gland enlargement. ABDOMEN and PELVIS: Intraperitoneal space: Free fluid in the pelvis. No free air. Bones/joints: Old compression fractures at T11, L1 and L3. Degenerative changes in the line with mild scoliosis. No dislocation. Soft tissues: Unremarkable. Vasculature: Unremarkable. No abdominal aortic aneurysm. Lymph nodes: No pathologically enlarged lymph nodes. IMPRESSION: 1. Bilateral perinephric fluid. Evidence of previous left renal with resection. 2. Mild diffuse gastric wall thickening again visualized suggesting gastritis. Distal esophageal wall thickening. 3. Free fluid in the pelvis. 4. Mild bladder wall thickening versus artifact of incomplete distention. Correlate clinically for cystitis/UTI. 5. Mild prostate gland enlargement. 6. Cholelithiasis. 7. Additional non-emergent findings as above. Electronically signed by: Maria Eugenia Davis MD 09/09/2024 06:39 AM. 10/10 06:40 Differential diagnosis: Nonspecific abd pain, gastritis, pancreatitis, diverticulitis, sp4 viral gastroenteritis, gastroenteritis. Data reviewed: vital signs, nurses notes, old medical records. Consideration of Admission/Observation Escalation of care including admission/observation considered. ED course: Past medical record was reviewed in detail, patient was again offered workup for his nausea including labs CT scan of abdomen pelvis and other tests as may be found necessary. Patient has declined workup and reports that he just desires to be managed for nausea. Patient's nausea has improved after Reglan and Phenergan IM. Patient stable for discharge home with p.o. ondansetron and Reglan as needed. Advised to follow-up with his primary care and oncology team at [facility] for additional care. Administered Medications: 10/09 22:38 Drug: metoCLOPramide IM 10 mg IM once Route: IM; Site: right deltoid; jr13 22:38 Drug: Promethazine IM 50 mg IM once Route: IM; Site: left deltoid; jr13 Disposition Summary: 10/10/24 01:54 Discharge Ordered Notes: Location: Home sp4 Problem: new sp4 Symptoms: have improved sp4 Condition: Stable sp4 Diagnosis - Nausea sp4 - Chemotherapy associated nausea sp4 Followup: sp4 - With: Private Physician - When: 7 - 10 days - Reason: Recheck today's complaints Discharge Instructions: - Discharge Summary Sheet sp4 - Managing Chemotherapy Side Effects, Adult sp4 Forms: - Patient Portal Instructions sp4 Prescriptions: - Reglan 10 mg Oral tablet - take 1 tablet ORAL route every 6 hours PRN nausea; 30 tablet; Refills: 0, sp4 Product Selection Permitted - ondansetron 8 mg Oral Tablet,disintegrating - take 1 tablet ORAL route every 8 hours PRN nausea; 30 tablet; Refills: 0, sp4 Product Selection Permitted Signatures: Jag Horvath MD MD sp4 RISHABH MCLAUGHLIN, RN RN dd2 Robinson Bravo, RN RN jr13
[2024-10-10 02:42] VITALS: TEMP 98.3
[2024-10-10 02:44] VITALS: O2SAT 98
[2024-10-10 02:50] VITALS: BP 143/89
== END 2024-10-10 02:31 | disposition home or self-care (01) ==
LOC: ER 21:15
DX: R11.0 Nausea (principal); T45.1X5A Adverse effect of antineoplastic and immunosuppressive drugs, initial encounter; C16.9 Malignant neoplasm of stomach, unspecified; Z95.1 Presence of aortocoronary bypass graft
CPT/HCPCS: 96372; 99284; J2550; J2765

== ENCOUNTER 2024-12-26 20:56 | Emergency (ER) | payer OTHER, BC ==
[2024-12-26] MEDS ORDERED: ONDANSETRON 4 MG (ODT) TAB ONE (21:04)
[2024-12-26] MEDS ORDERED: PROMETHAZINE INJ 25 MG/ML AMP ONE (21:05)
--- OUTSIDE RECORDS SUMMARY | 2024-12-26 21:06 | XMS REPORT | Clinical Summary ---
Author Name Unknown Organization [facility] [place] Address [address] [place] [address] Care Team Providers Care Combination Operator Name Role Phone Margoth Souza MD Primary Care Provider [phone] Mary Jane Cassidy MD Unavailable [phone] Barry He MD Unavailable Patience Hunt MD Unavailable Eagle Zhu DO Unavailable [phone] Marianela Hutchinson MD Unavailable [phone] Margoth Souza MD Unavailable Ceci Nicholson MD Unavailable [phone] Marianela Hutchinson MD Primary Care Provider [phone] Sigifredo Davenport MD Unavailable Abilio Ng-Adams Unavailable [phone] Shira Segovia MD Unavailable Allergies Active Allergy Reactions Criticality Noted Date Comments Doxycycline GI Intolerance High 11/16/2024 Discovered after first prescription on 10/31/24 Levofloxacin GI Intolerance High 11/16/2024 Discovered after first prescription on 10/30/24 Medications insulin glargine-lixisen atide (Soliqua 100/33) 100 unit-33 mcg/mL inpn Inject 15 Units/day under the skin daily. Active methocarbamol (ROBAXIN) 500 mg tabletIndication s:Renal mass Take 1 tablet (500 mg) by mouth every 8 (eight) hours as needed for muscle spasms. 20 tablet 01/03/20 24 1:52 PM CDT Active Additional Information Patient not taking.Reason: No longer taking, Reported on 12/18/2024 aspirin 81 mg chewable tablet Chew and swallow 1 tablet (81 mg) by mouth daily. Active metoprolol tartrate (LOPRESSOR) 25 mg tablet Take 1 tablet (25 mg) by mouth twice daily. Active atorvastatin (LIPITOR) 40 mg tablet Take 1 tablet (40 mg) by mouth daily. Active pantoprazole (PROTONIX) 40 mg EC tablet Take 1 tablet (40 mg) by mouth every morning before breakfast. Active clopidogrel (Plavix) 75 mg tablet Take 1 tablet (75 mg) by mouth daily. Active metFORMIN (GLUCOPHAGE-XR) 500 mg 24 hr tablet 023 Active sucralfate (CARAFATE) 100 mg/mL suspension BEFORE MEALS AND AT BEDTIME Active OLANZapine (ZyPREXA) 2.5 mg tabletIndication s:Adenocarcinoma of stomach Take 1 tablet (2.5 mg) by mouth at bedtime. 30 tablet 1 025 Active ondansetron (Zofran) 8 mg tabletIndication s:Adenocarcinoma of stomach Take 1 tablet (8 mg) by mouth every 8 (eight) hours as needed for nausea or vomiting. 30 tablet 2 025 Active promethazine (PHENERGAN) 25 mg tabletIndication s:Adenocarcinoma of stomach Take 1 tablet (25 mg) by mouth every 6 (six) hours as needed for nausea or vomiting. 60 tablet 2 025 Active loperamide (Imodium A-D) 1 mg/7.5 mL solutionIndicati ons:Diarrhea Take 15 mL (2 mg) by mouth 4 (four) times a day as needed for diarrhea. 480 mL 2 Active Additional Information Patient not taking.Reason: No longer taking, Reported on 12/18/2024 mupirocin (BACTROBAN) 2% ointmentIndicati ons: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 mellitus Apply topically to affected area(s) twice daily. 22 g 1 025 Active Additional Information Patient not taking.Reason: No longer taking, Reported on 12/18/2024 doxycycline (ADOXA) 100 MG tablet Take 1 tablet (100 mg) by mouth twice daily. Active dapagliflozin propanediol (Farxiga) 10 mg tablet Take 1 tablet (10 mg) by mouth daily. 2023 Discontinued metFORMIN (GLUCOPHAGE) 500 mg tablet Take 2 tablets (1,000 mg) by mouth 2 (two) times a day with meals. 2024 Discontinued tadalafil (CIALIS) 5 mg tablet Take 1 tablet (5 mg) by mouth daily. 024 2023 Discontinued polyethylene glycol (GLYCOLAX) 17 gram/dose powderIndication s:Renal mass Fill powder to justice inside cap (17 g). Stir and Dissolve in any 4 to 8 ounces of beverage then drink solution daily for 30 days as directed. 510 g 024 2023 traMADol (ULTRAM) 50 mg tabletIndication s:Renal mass Take 1 tablet (50 mg) by mouth every 4 (four) hours as needed for moderate pain or severe pain. 20 tablet 01/03/20 24 1:52 PM CDT 024 2023 Discontinued(S top Taking at Discharge) prochlorperazine (Compazine) 10 mg tabletIndication s:Adenocarcinoma of stomach Take 1 tablet (10 mg) by mouth every 6 (six) hours as needed for nausea or vomiting. 30 tablet 2 024 2024 Discontinued metoclopramide (Reglan) 5 mg tabletIndication s:Adenocarcinoma , NOS of stomach, NOS,Nausea Take 1 tablet (5 mg) by mouth 4 (four) times a day before meals and nightly for 28 days. 56 tablet 1 024 2023 Discontinued oxyCODONE (ROXICODONE) 5 mg/5 mL solutionIndicati ons:Adenocarcino ma of stomach Take 5 mL (5 mg) by mouth every 6 (six) hours as needed for moderate pain or severe pain (pain not relieved by Tylenol). 60 mL 04/15/20 24 3:43 PM GENERAL SUPERINTENDENT 2024 Discontinued amLODIPine (NORVASC) 5 mg tablet DAILY 024 2024 Discontinued(R eorder) OLANZapine (ZyPREXA) 2.5 mg tabletIndication s:Adenocarcinoma of stomach Take 1 tablet (2.5 mg) by mouth at bedtime. 30 tablet 1 024 2024 Discontinued(R eorder) promethazine (PHENERGAN) 25 mg tabletIndication s:Adenocarcinoma of stomach Take 1 tablet (25 mg) by mouth every 6 (six) hours as needed for nausea or vomiting. 60 tablet 2 024 2024 Discontinued(R eorder) ondansetron (Zofran) 8 mg tabletIndication s:Adenocarcinoma of stomach Take 1 tablet (8 mg) by mouth every 8 (eight) hours as needed for nausea or vomiting. 30 tablet 2 024 2024 Discontinued(R eorder) fluconazole (Diflucan) 40 mg/mL suspensionIndica tions:Candidal esophagitis Take 10 mL (400 mg) by mouth daily for 1 day, THEN 5 mL (200 mg) daily for 13 days. 75 mL 025 2024 promethazine (PHENERGAN) 25 mg tabletIndication s:Adenocarcinoma of stomach Take 1 tablet (25 mg) by mouth every 6 (six) hours as needed for nausea or vomiting. 60 tablet 2 025 2024 Discontinued(R eorder) ondansetron (Zofran) 8 mg tabletIndication s:Adenocarcinoma of stomach Take 1 tablet (8 mg) by mouth every 8 (eight) hours as needed for nausea or vomiting. 30 tablet 2 025 2024 Discontinued(R eorder) amLODIPine (NORVASC) 5 mg tabletIndication s:Hypertensive crisis Take 2 tablets (10 mg) by mouth daily for 30 days. Hold for Systolc Blood Pressure less than 100 mmHg, Heart Rate less than 60 bpm. 60 tablet 025 2024 sodium zirconium cyclosilicate (Lokelma) 5 gram packetIndication s:Hyperkalemia Take 1 packet (5 g) by mouth once for 1 dose. Mix the entire content of the packet(s) with approximately 3 tablespoon (45 mL) of water, stir well and drink immediately as directed. 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 Take with levofloxacin/Lev aquin 14 capsule 025 2024 Discontinued(A llergic response) Active Problems Patient Care Coordination No te Formatting of this note migh t be different from the original. The patient does *NOT* use MYCHART, please call him with any updates. He will need a printed schedule as well during his follow ups. Problem Noted Date Diagnosed Date Hyperkalemia 10/29/2024 Hypertensive urgency 10/28/2024 Assessment & Plan (10/28/2024 6:07 PM CDT): Extensive cardiac history Plavix/ASA restarted per internal med note (no upcoming surgery scheduled, Platelets 309) Taking Amlodipine 5mg daily Has not been taking metoprolol SBP 200s Denies chest pain, SOB, headache Chart review shows 160s-200s SBP is baseline IV labetolol x1 in ACCC Restart home metoprolol with holding parameters Monitor Wound of skin 10/28/2024 Assessment & Plan (10/28/2024 6:07 PM CDT): Right ankle wound noted WOC consult placed Iron deficiency anemia 05/18/2024 Intractable nausea and vomiting 04/12/2024 Assessment & Plan (10/28/2024 6:07 PM CDT): IV zofran PRN CT CAP: Mild wall thickening of the ascending colon. Differential diagnosis includes underdistention, colitis and metastases. 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 Renal mass 09/16/2023 Overview (09/16/2023): left Assessment & Plan (10/25/2024 5:17 PM CDT): Managed by the primary oncology team 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 09/16/2023 Paroxysmal atrial fibrillation Assessment & Plan (10/25/2024 5:17 PM CDT): EKG c/w Sinus rhythm Will continue to monitor Rhythm and rate Gastro-esophageal reflux disease without esophag itis Assessment & Plan (10/25/2024 5:17 PM CDT): Managed by the primary oncology team Hyperlipidemia Hypertension Assessment & Plan (10/25/2024 5:17 PM CDT): Patient was not able to tolerate po meds Vasotec 1.25 IV x 1 Neuropathy Renal cell carcinoma <Left side> Resolved Problems Problem Noted Date Diagnosed Date Resolved Date Dehydration 04/12/2024 04/14/2024 Mass of stomach 04/08/2024 04/14/2024 Hemoglobin A1c greater than 9% indicating poor diabetic control 01/02/2024 04/14/2024 group home current use of systemic steroid 01/02/2024 04/14/2024 Diabetic ketoacidosis 2023 Overview (01/01/2024): Hospitalized locally 12/03/2023-12/06/2023 Encounters Date Type Department Care Team Description 12/18/2024 11:00 AM CDT Follow-Up Internal Medicine Center [facility] [facility], 9th [place] [address] Shira Segovia MD Adenocarcinoma of stomach (Primary Dx); Hypertension; 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 mellitus; Paroxysmal atrial fibrillation 12/18/2024 Travel 12/15/2024 Orders Only [facility] [address] [place] [address], 7th [place] [address] Gillian Gomez PA-C Adenocarcinoma of stomach (Primary Dx) 12/01/2024 Orders Only [facility] [address] [place] [address], 7th [place] [address] Gillian Gomez PA-C Adenocarcinoma of stomach (Primary Dx) 11/13/2024 1:15 PM CDT - 11/13/2024 11:59 PM CDT Hospital Encounter Diagnostic Laboratory Center [address] [place] [address] Gillian Gomez PA-C Adenocarcinoma of stomach; Hyperkalemia; Hyponatremia Discharge Disposition: Home 11/13/2024 1:00 PM CDT Ancillary Procedure [facility] Outpatient [facility], 7th [place] [address] Shira Segovia MD 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 mellitus 11/05/2024 Orders Only [facility] [address] [place] [address], 7th [place] [address] Radha Castellon Werner 11/04/2024 Orders Only [facility] [address] [place] [address], 7th [place] [address] Gillian Gomez PA-C 11/04/2024 Telephone [facility] [address] [place] [address], 7th [place] [address] Gabrielle Arias RN 11/02/2024 Orders Only [facility] [address] [place] [address], 7th Floor [place] [phone] Radha Castellon CHEMA 11/01/2024 6:00 PM CDT - 11/01/2024 11:59 PM CDT Hospital Encounter Ambulatory Treatment Center - Main Building [address] [place] [address], 2nd Floor, Ele[place] [address] Gillian Gomez PA-C Balason, Adda Rica F, RN Adenocarcinoma of stomach (Primary Dx) Discharge Disposition: Home 10/30/2024 2:00 PM CDT Infusion Ambulatory Treatment Center - [facility] [address] [facility], 8th [place] [address] Gillian Gomez PA-C Baidon, Mario B RN Adenocarcinoma of stomach (Primary Dx); Iron deficiency anemia, not otherwise specified 10/30/2024 1:00 PM CDT Consult Internal Medicine Center [address] [place] [address], 9th [place] [address] Shira Segovia MD Hypertension (Primary Dx); Hypertensive crisis; Paroxysmal atrial fibrillation; Atherosclerosis of coronary 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, not otherwise specified; Other hyperlipidemia; Type 2 diabetes mellitus with hyperglycemia; 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 mellitus; Gastro-esophageal reflux disease without esophagitis, not otherwise specified; Hyperkalemia; Hyponatremia; Acute nontraumatic kidney injury, not otherwise specified 10/30/2024 12:22 PM CDT - 10/30/2024 11:59 PM CDT Hospital Encounter Diagnostic Laboratory Center [address] [place] [address] Marianela Hutchinson MD Adenocarcinoma of stomach Discharge Disposition: Home 10/30/2024 Orders Only [facility] [address] [place] [address], 7th [place] [address] Marianela Hutchinson MD 10/30/2024 Travel 10/30/2024 Telephone Internal Medicine Center [address] [place] [address], 9th [place] [address] Shira Segovia MD 10/30/2024 Orders Only [facility] [address] [place] [address], 7th [place] [address] Gillian Gomez PA-C Iron deficiency anemia, not otherwise specified (Primary Dx); Adenocarcinoma of stomach 10/29/2024 Orders Only [facility] [address] [place] [address], 7th Floor Elev[place] [phone] Gillian Gomez PA-C Adenocarcinoma of stomach (Primary Dx) 10/29/2024 Telephone Case Management [address] [place], [place] [id number] Yani Salamanca 10/28/2024 2:18 PM CDT - 10/29/2024 1:00 PM CDT Hospital Encounter Acute Cancer Care Center [address] [place] [address], 1st [place] [address] Otf Glaser MD Gandhi, Ayush, MD Sandoval, Marcelo A., MD Hypertensive crisis (Primary Dx); Hyperkalemia; Intractable nausea and vomiting; Renal cell carcinoma <Left side>; Type 2 diabetes mellitus with hyperglycemia; Atherosclerosis of coronary 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 Discharge Disposition: Home 10/28/2024 10:54 AM CDT - 10/28/2024 2:17 PM CDT Hospital Encounter Diagnostic Laboratory Center [address] [place] [address] Marianela Hutchinson MD Adenocarcinoma of stomach Discharge Disposition: Home 10/28/2024 10:45 AM CDT Infusion Ambulatory Treatment [facility] - [facility] [address] [place] [address], 8th [place] [address] Marianela Hutchinson MD Moreno Escobar, Cristian, ARTURO Adenocarcinoma of stomach 10/28/2024 9:45 AM CDT - 10/28/2024 10:53 AM CDT Hospital Encounter Cardiopulmonary Center [address] [place] [address], 6th [place] [address] Marianela Hutchinson MD Discharge Disposition: Home 10/28/2024 Travel 10/28/2024 Orders Only [facility] [address] [place] [address], [facility] [place] [address] Molly Otto [facility] 10/27/2024 Orders Only [facility] [address] [place] [address], [facility] [place] [address] Marianela Hutchinson MD 10/27/2024 Orders Only [facility] [address] [place] [address], [facility] [place] [address] Gillian Gomez PA-C Adenocarcinoma of stomach (Primary Dx) 10/27/2024 Telephone [facility] [address] [place] [address], [address] [place] [address] [place] [address] Gabrielle Arias RN 10/26/2024 12:20 PM CDT Follow-Up Gastro[facility] Center [address] [place] [address], [facility] [place] [address] Marianela Hutchinson MD Adenocarcinoma of stomach (Primary Dx) 10/26/2024 Orders Only Colorectal Center - Medical Oncology [address] [place] [address], 7th [place] [address] David Alejandre MD 10/26/2024 Travel 10/25/2024 8:03 AM CDT - 10/25/2024 5:51 PM CDT Emergency Acute Cancer Care Center [address] [place] [address], 1st [place] [address] Mohan Torres MD Nausea (Primary Dx); Hypertension; Gastro-esophageal reflux disease without esophagitis; Adenocarcinoma of stomach; Renal mass; Paroxysmal atrial fibrillation Discharge Disposition: Home 10/25/2024 7:00 AM CDT - 10/25/2024 7:19 AM CDT Hospital Encounter Diagnostic Laboratory Center [address] [place] [address] Marianela Hutchinson MD Adenocarcinoma of stomach Discharge Disposition: Home 10/07/2024 4:30 PM CDT Infusion Ambulatory Treatment [place] - [facility] [address] [place] [address], 8th [place] [address] Marianela Hutchinson MD Gumban, Connie Y, RN Adenocarcinoma of stomach (Primary Dx) 10/07/2024 Travel 10/05/2024 1:45 PM CDT Infusion Ambulatory Treatment [place] - [address], 8th [place] [address] Marianela Hutchinson MD Olipas, Donnamarie G, RN Adenocarcinoma of stomach (Primary Dx); Iron deficiency anemia, not otherwise specified 10/05/2024 10:48 AM CDT - 10/05/2024 11:59 PM CDT Hospital Encounter Diagnostic Laboratory Center [address] [place] [address] Marianela Hutchinson MD Adenocarcinoma of stomach Discharge Disposition: Home 10/05/2024 Travel 10/02/2024 Orders Only [facility] [address] [place] [address], 7th [place] [address] Gillian Gomez PA-C 09/25/2024 Telephone [facility] [address] [place] [address] Jane Sanchez RN Discharge Call 09/23/2024 8:56 PM CDT - 09/23/2024 11:34 PM CDT Emergency Acute Cancer Care Center [address] [place] [address], 1st [place] [address] Otf Glaser MD Encounter for adjustment and management of vascular access device (Primary Dx); Hypertension Discharge Disposition: Home 09/23/2024 6:50 PM CDT Infusion Ambulatory Treatment [place] - [address], 8th [place] [address] Marianela Hutchinson MD Rocafort, Roy G, RN Adenocarcinoma of stomach (Primary Dx) 09/21/2024 4:30 PM CDT Infusion Ambulatory Treatment [place] [id number] [facility], 8th [place] [address] Marianela Hutchinson MD Joseph, Divya, RN Adenocarcinoma of stomach (Primary Dx); Iron deficiency anemia, not otherwise specified 09/21/2024 2:20 PM CDT Follow-Up [facility] [address] [place] [address], [address] [place], [place] [address] [address] Marianela Hutchinson MD Adenocarcinoma of stomach 09/21/2024 12:48 PM CDT - 09/21/2024 11:59 PM CDT Hospital Encounter Diagnostic Laboratory Center [address] [place] [address] Marianela Hutchinson MD Adenocarcinoma of stomach Discharge Disposition: Home 09/21/2024 Orders Only [facility] [address] [place] [address], [address] [place] [address] Marianela Hutchinson MD Adenocarcinoma of stomach (Primary Dx) 09/21/2024 Orders Only [facility] [address] [place] [address], [address] [place] [address] Radha Castellon, [facility] Adenocarcinoma of stomach (Primary Dx); Diarrhea 09/21/2024 Travel 09/21/2024 Orders Only Ambulatory Treatment [place] - [address], 8th [facility] [place] [address] Marianela Hutchinson MD Adenocarcinoma of stomach (Primary Dx) 09/09/2024 6:30 PM CDT Infusion Ambulatory Treatment [address], 8th [place] [address] Marianela Hutchinson MD Balason, Adda Rica F RN Adenocarcinoma of stomach (Primary Dx) 09/09/2024 Travel 09/07/2024 4:30 PM CDT Infusion Ambulatory Treatment [place] - [address], 8th [place] [address] Marianela Hutchinson MD Castillo, Emmanuel, RN Adenocarcinoma of stomach (Primary Dx); Iron deficiency anemia, not otherwise specified 09/07/2024 1:00 PM CDT Follow-Up [facility] [address] [place] [address], 7th [place] [address] Marianela Hutchinson MD Adenocarcinoma of stomach (Primary Dx) 09/07/2024 10:41 AM CDT - 09/07/2024 11:59 PM CDT Hospital Encounter Diagnostic Laboratory Center [address] [place] [address] Marianela Hutchinson MD Adenocarcinoma of stomach Discharge Disposition: Home 09/07/2024 Orders Only [facility] [address] [place] [address], [facility] [place] [address] Marianela Hutchinson MD Adenocarcinoma of stomach (Primary Dx) 09/07/2024 Orders Only [facility] [address] [place] [address], [address] [place] [address] Radha Castellon, [facility] Adenocarcinoma of stomach (Primary Dx); Iron deficiency anemia, not otherwise specified 09/07/2024 Travel 08/26/2024 7:41 PM CDT - 08/26/2024 11:59 PM CDT Hospital Encounter Ambulatory Treatment Center - [address], 2nd Floor, [place] [address] Marianela Hutchinson MD Le, Lam RN Adenocarcinoma of stomach (Primary Dx) Discharge Disposition: Home 08/24/2024 1:40 PM CDT Follow-Up [facility] [address] [place] [address], 7th [place] [address] Marianela Hutchinson MD Adenocarcinoma of stomach 08/24/2024 12:42 PM CDT - 08/24/2024 11:59 PM CDT Hospital Encounter Ambulatory Treatment Center - [address], 2nd Floor, [place] [address] Patricia, Gillian Donna, PA-C Sincere, Kishanda S, RN Adenocarcinoma of stomach (Primary Dx) Discharge Disposition: Home 08/24/2024 11:16 AM CDT - 08/24/2024 12:41 PM CDT Hospital Encounter Diagnostic Laboratory Center [address] [place] [address] Gillian Gomez PA-C Adenocarcinoma of stomach Discharge Disposition: Home 08/24/2024 Orders Only [facility] [address] [place] [address] Main [facility], 7th [place] [address] Marianela Hutchinson MD Adenocarcinoma of stomach (Primary Dx) 08/24/2024 Telephone [facility] [address] [place] [address] Main [facility], 7th [place] [address] Mony Saavedra RN 08/24/2024 Orders Only [facility] [address] [place] [address] Main [facility], 7th [place] [address] Radha Castellon [facility] Adenocarcinoma of stomach (Primary Dx) 08/24/2024 Travel 08/24/2024 Orders Only Ambulatory Treatment Center - [facility] [address] [facility], 2nd Floor, [place] [address] Marianela Hutchinson MD Adenocarcinoma of stomach (Primary Dx) 08/21/2024 Telephone [facility] [address] [place] [address] Main [facility], 7th [place] [address] Milagros Rogers RN 08/17/2024 Orders Only [facility] [address] [place] [address] Main [facility], 7th [place] [address] Gillian Gomez PA-C Adenocarcinoma of stomach (Primary Dx) 08/06/2024 Orders Only [facility] [address] [place] [address] Main [facility], 7th [place] [address] Radha Castellon [facility] 07/22/2024 Orders Only Ambulatory Treatment Center - [facility] [address] [facility], 8th [place] [address] Marianela Hutchinson MD Adenocarcinoma of stomach (Primary Dx) 07/21/2024 Telephone Ambulatory Treatment Center - [facility] [address] [facility], 8th [place] [address] Rosanna Álvarez, ARTURO Chemotherapy Teaching 07/16/2024 2:40 PM GENERAL SUPERINTENDENT Follow-Up Gastrointestinal Center [facility] Main [facility], 7th [place] [address] Marianela Hutchinson MD Adenocarcinoma of stomach (Primary Dx) 07/16/2024 Orders Only [facility] [address] [place] [address] Main dg, 7th [place] [address] Marianela Hutchinson MD Adenocarcinoma of stomach (Primary Dx) 07/16/2024 Orders Only [facility] [address] [place] [address] Main [facility], 7th [place] [address] Radha [facility] Adenocarcinoma of stomach (Primary Dx) 07/16/2024 Travel 07/15/2024 10:08 AM GENERAL SUPERINTENDENT - 07/15/2024 11:59 PM GENERAL SUPERINTENDENT Hospital Encounter CT Imaging and Diagnostic Imaging [facility] Main [facility], 3rd [place] [address] Mary Kay Santamaria APRN Adenocarcinoma of stomach Discharge Disposition: Home 07/15/2024 9:49 AM GENERAL SUPERINTENDENT - 07/15/2024 10:07 AM GENERAL SUPERINTENDENT Hospital Encounter [facility] [address] [place] [address] [place] [address] Mary Kay Santamaria APRN Adenocarcinoma of stomach Discharge Disposition: Home 07/07/2024 Orders Only [facility] [address] [place] [address] Main dg, 7th [place] [address] Gillian Gomez PA-C Adenocarcinoma of stomach (Primary Dx) 07/06/2024 Telephone [facility] - Surgical Oncology [facility] Main dg, 7th [place] [address] Mary Kay Santamaria APRN 07/06/2024 Orders Only [facility] Oncology [address] [place] [address] Main dg, 7th [place] [address] Mary Kay Santamaria APRN 07/06/2024 Orders Only [facility] [address] [place] [address] Main Bldg, 7th [place] [address] Gillian Gomez PA-C Adenocarcinoma of stomach (Primary Dx) 07/06/2024 Multidisciplinary Visit [facility] [address] [place] [address] Main dg, 7th [place] [address] Gillian Gomez PA-C 07/06/2024 Orders Only [facility] [address] [place] [address] Main [facility], 7th [place] [address] Donnell Van Adenocarcinoma of stomach (Primary Dx) 07/02/2024 11:00 AM GENERAL SUPERINTENDENT Nutrition Clinical Nutrition For your Nutrition appointment location directions please call: Marianela Hutchinson MD Munder, Kathryn, RD Left without seen 07/02/2024 10:30 AM GENERAL SUPERINTENDENT Follow-Up [facility] Oncology [address] [place] [address] Main dg, 7th [place] [address] John Fong MD Adenocarcinoma of stomach 07/02/2024 Documentation [facility] [address] [place] [address] Main dg, 7th [place] [address] John Fong MD 06/30/2024 3:33 PM GENERAL SUPERINTENDENT Anesthesia Event Perioperative Evaluation and Management Center [address] [place] [address] Main dg, 6th [place] [address] Lien Antonio, RN 06/30/2024 12:25 PM GENERAL SUPERINTENDENT Anesthesia Event Endoscopy Center [address] [place] [address] Main Bldg, 5th [place] [address] Susana Kelly MD 06/30/2024 12:00 PM GENERAL SUPERINTENDENT - 06/30/2024 12:45 PM GENERAL SUPERINTENDENT Surgery [facility] [address] [place] [address] Main Bldg, 5th [place] [address] Brandon Alcala MD DIAGNOSTIC UPPER GASTROINTESTINAL ENDOSCOPY 06/30/2024 10:15 AM GENERAL SUPERINTENDENT - 06/30/2024 2:24 PM GENERAL SUPERINTENDENT Hospital Encounter Endoscopy Center [address] [place] [address] Main [facility], 5th [place] [address] Brandon Alcala MD Adenocarcinoma of stomach Discharge Disposition: Home 06/30/2024 Travel 06/29/2024 9:00 AM GENERAL SUPERINTENDENT Consult Perioperative Evaluation and Management [address] [place] [address], 6th [place] [address] Mary Kay Santamaria APRN Vu, Khanh D, MD Encounter for preprocedural cardiovascular examination (Primary Dx); Coronary arteriosclerosis, not otherwise specified; Cardiomyopathy, not otherwise specified; Hypertension; 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 use of 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; Type 2 diabetes mellitus with hyperglycemia; Dyslipidemia; Hyponatremia; Hyperkalemia; Adenocarcinoma of stomach; Paroxysmal atrial fibrillation; Hyperlipidemia, not otherwise specified 06/29/2024 8:00 AM GENERAL SUPERINTENDENT POEM Appointments Peri[facility] Management Center [address] [place] [address], 6th [place] [address] Marianela Hutchinson MD 06/29/2024 7:30 AM GENERAL SUPERINTENDENT - 06/29/2024 11:59 PM GENERAL SUPERINTENDENT Hospital Encounter [facility] [address] [place] [address], 2nd [place] [address] Mary Kay Santamaria APRN Adenocarcinoma of stomach Discharge Disposition: Home 06/29/2024 Travel 06/23/2024 Documentation [facility] [address] [place] [address], 7th [place] [address] Mony Saavedra RN 06/22/2024 12:20 PM GENERAL SUPERINTENDENT Follow-Up [facility] [address] [place] [address], 7th [place] [address] Marianela Hutchinson MD Adenocarcinoma, NOS of stomach, NOS 06/22/2024 Orders Only [facility] [address] [place] [address], 7th [place] [address] Radha [facility]ellon [facility] 06/22/2024 Travel 06/20/2024 10:45 AM GENERAL SUPERINTENDENT - 06/20/2024 11:59 PM GENERAL SUPERINTENDENT Hospital Encounter Diagnostic Imaging [facility] [address] [place] [address], 3rd [place] [address] Adenocarcinoma, NOS of stomach, NOS; Malignant neoplasm of overlapping sites of esophagus Discharge Disposition: Home 06/20/2024 10:08 AM GENERAL SUPERINTENDENT - 06/20/2024 10:44 AM GENERAL SUPERINTENDENT Hospital Encounter [facility] [address] [place] [address] Gillian Gomez PA-C Adenocarcinoma, NOS of stomach, NOS Discharge Disposition: Home 06/16/2024 [place] [facility] On[facility] [address] [place] [address], 7th [place] [address] Mary Kay Santamaria, PYTHON ENGINEER 06/15/2024 1:30 PM GENERAL SUPERINTENDENT Infusion [facility] [address] [facility], 8th [place] [address] Marianela Hutchinson MD [facility] ARTURO Tyson Adenocarcinoma of stomach (Primary Dx); Iron deficiency anemia, not otherwise specified 06/15/2024 12:40 PM GENERAL SUPERINTENDENT Follow-Up [facility] [address] [place] [address], 7th [place] [address] Marianela Hutchinson MD Adenocarcinoma, NOS of stomach, NOS; Malignant neoplasm of overlapping sites of esophagus 06/15/2024 10:24 AM GENERAL SUPERINTENDENT - 06/15/2024 11:59 PM GENERAL SUPERINTENDENT Hospital Encounter [facility] [address] [place] [address] Marianela Hutchinson MD Adenocarcinoma of stomach; Adenocarcinoma, NOS of stomach, NOS Discharge Disposition: Home 06/15/2024 Orders Only [facility] [address] [place] [address], 7th [place] [address] Radha Castellon, [facility] Adenocarcinoma of stomach (Primary Dx) 06/15/2024 Orders Only [facility] [address] [facility] Main Bldg, 7th [place] [address] Gillian Gomez PA-C 06/15/2024 Travel 06/15/2024 Telephone [facility] - Gastroenterology , Hepatology & Nutrition [address] Bldg, 7th [place] [address] Arnaldo Araujo PA-C 06/15/2024 Multidisciplinary Visit [facility] [address] Main Bldg, 7th [place] [address] Lakeshia Pablo PA 06/15/2024 Orders Only [facility] Main Bldg, 7th [place] [address] Marianela Hutchinson MD Adenocarcinoma of stomach (Primary Dx) 06/12/2024 Prep for Surgery [facility] - Gastroenterology , Hepatology & Nutrition [address] [facility] Main Bldg, 7th [place] [address] Arnaldo Araujo PA-C Adenocarcinoma of stomach (Primary Dx) 06/12/2024 Telephone [facility] - [facility] Oncology [address] [facility] Main Bldg, 7th [place] [address] Mary Kay Santamaria APRN 06/12/2024 Orders Only [facility] - Surgical Oncology [address] [facility] Main Bldg, 7th [place] [address] Mary Kay Santamaria APRN Adenocarcinoma of stomach (Primary Dx) 06/10/2024 Orders Only [facility] - Surgical Oncology [address] Main Bldg, 7th [place] [address] Mary Kay Santamaria APRN Adenocarcinoma of stomach (Primary Dx) 06/05/2024 Telephone [facility] - Gastroenterology , Hepatology & Nutrition [address] Main Bldg, 7th [place] [address] Arnaldo Araujo PA-C 06/03/2024 5:30 PM GENERAL SUPERINTENDENT [facility] [address] [facility], 8th [place] [address] Marianela Hutchinson MD Lewandowski, Teresa M RN Adenocarcinoma of stomach (Primary Dx) 06/03/2024 Travel 06/02/2024 Telephone [facility] [address] [place] [address], 7th Floor Elevator [place] [phone] Mony Saavedra RN 06/01/2024 1:00 PM GENERAL SUPERINTENDENT Infusion [facility] [address] [facility], Floor 6 [place] [address] Marianela Hutchinson MD Shaik, Anna Marie B RN Adenocarcinoma of stomach (Primary Dx); Iron deficiency anemia, not otherwise specified 06/01/2024 10:53 AM GENERAL SUPERINTENDENT - 06/01/2024 11:59 PM GENERAL SUPERINTENDENT Hospital Encounter [facility] [address] [place] [address] Marianela Hutchinson MD Adenocarcinoma of stomach; Iron deficiency anemia, not otherwise specified Discharge Disposition: Home 06/01/2024 Orders Only [facility] [address] [place] [address], 7th [place] [address] Marianela Hutchinson MD 06/01/2024 Orders Only [facility] [address] [place] [address], 7th [place] [address] Radha Castellon [facility] Adenocarcinoma of stomach (Primary Dx); Iron deficiency anemia, not otherwise specified 06/01/2024 Travel 06/01/2024 Orders Only [facility] [address] [place] [address] [facility], Floor 6 [place] [address] Marianela Hutchinson MD Adenocarcinoma of stomach (Primary Dx) 05/26/2024 Telephone [facility] - Gastroenterology , Hepatology & Nutrition [address] [place] [address], 7th [place] [address] Arnaldo Araujo PA-C 05/22/2024 Telephone [facility] - Gastroenterology , Hepatology & Nutrition [address] [place] [address] Main [facility], 7th [place] [address] Arnaldo Araujo PA-C 05/22/2024 Orders Only [facility] - Gastroenterology , Hepatology & Nutrition [address] [place] [address] Main [facility], 7th Floor Elevator A [place] [phone] Arnaldo Araujo PA-C Candidal esophagitis (Primary Dx) 05/20/2024 4:30 PM GENERAL SUPERINTENDENT - 05/20/2024 11:59 PM GENERAL SUPERINTENDENT Hospital Encounter Ambulatory Treatment Center - [address], 2nd Floor, Elevator B Elevator C [place] [phone] Marianela Hutchinson MD Lewandowski, Teresa M, RN Adenocarcinoma of stomach Discharge Disposition: Home 05/19/2024 12:44 PM GENERAL SUPERINTENDENT Anesthesia Event [facility]oscopy Center [address] [place] [address], 5th [place] [address] Maurice Ferrera MD Thomas, Ashly [facility] 05/19/2024 12:00 PM GENERAL SUPERINTENDENT - 05/19/2024 1:10 PM GENERAL SUPERINTENDENT Surgery [facility] [address] [place] [address], 5th [place] [address] Brandon Alcala MD UPPER GASTROINTESTINAL ENDOSCOPY OF ESOPHAGUS, STOMACH, OR DUODENUM ANDJ ADJACENT STRUCTURES, WITH ENDOSCOPIC ULTRASOUND EXAMINATION 05/19/2024 11:17 AM GENERAL SUPERINTENDENT - 05/19/2024 2:49 PM GENERAL SUPERINTENDENT Hospital Encounter Endoscopy Center [address] [place] [address], 5th [place] [address] Brandon Alcala MD Adenocarcinoma of stomach Discharge Disposition: Home 05/19/2024 Travel 05/18/2024 1:00 PM GENERAL SUPERINTENDENT Infusion [facility] [address] [place] [address] [facility], Floor 6 [place] [address] Marianela Hutchinson MD Rupp, Alexa B, RN Adenocarcinoma of stomach (Primary Dx) 05/18/2024 12:20 PM GENERAL SUPERINTENDENT Follow-Up [facility] [address] [place] [address], 7th [place] [address] Marianela Hutchinson MD Adenocarcinoma, NOS of stomach, NOS 05/18/2024 11:00 AM GENERAL SUPERINTENDENT POEM Appointments Perioperative Evaluation and Management Center [address] [place] [address], 6th [place] [address] Marianela Hutchinson MD 05/18/2024 10:32 AM GENERAL SUPERINTENDENT - 05/18/2024 11:59 PM GENERAL SUPERINTENDENT Hospital Encounter [facility] [address] [place] [address] Gillian Gomez PA-C Adenocarcinoma, NOS of stomach, NOS Discharge Disposition: Home 05/18/2024 Orders Only [facility] [address] [place] [address], 7th [place] [address] Marianela Hutchinson MD Adenocarcinoma of stomach (Primary Dx) 05/18/2024 Orders Only [facility] [address] [place] [address], 7th [place] [address] Radha Castellon, [facility] Adenocarcinoma of stomach (Primary Dx); Iron deficiency anemia, not otherwise specified 05/18/2024 Travel 05/15/2024 11:59 PM GENERAL SUPERINTENDENT Anesthesia Event Perioperative Evaluation and Management Center [address] [place] [address], 6th [place] [address] Eri Lynne RN 05/06/2024 5:30 PM GENERAL SUPERINTENDENT Infusion [facility] Treatment [facility] - [facility] [address] [facility], 8th [place] [address] Marianela Hutchinson MD Pagara, Leni S, RN Adenocarcinoma of stomach 05/04/2024 12:36 PM GENERAL SUPERINTENDENT - 05/04/2024 11:59 PM GENERAL SUPERINTENDENT Hospital Encounter Ambulatory Treatment [place] - Main Building [address] [place] [address], 2nd Floor, Elev[place] [address] Gillian Gomez PA-C Jo, Edifia Sungsoon, RN Adenocarcinoma of stomach (Primary Dx) Discharge Disposition: Home 05/04/2024 12:20 PM GENERAL SUPERINTENDENT Follow-Up [facility] [address] [place] [address] aMrianela Hutchinson MD Adenocarcinoma, NOS of stomach, NOS 05/04/2024 11:10 AM GENERAL SUPERINTENDENT - 05/04/2024 12:35 PM GENERAL SUPERINTENDENT Hospital Encounter [facility] [address] [place] [address] Gillian Gomez PA-C Adenocarcinoma, NOS of stomach, NOS; Adenocarcinoma of stomach Discharge Disposition: Home 05/04/2024 Orders Only [facility] [address] [place] [address] Marianela Hutchinson MD Adenocarcinoma of stomach (Primary Dx) 05/04/2024 Orders Only [facility] [address] [place], [place] [phone] Radha Castellon Werner Adenocarcinoma of stomach (Primary Dx) 05/04/2024 Travel 04/30/2024 Orders Only [facility] - Surgical Oncology [address] [place] [address] Mary Kay Santamaria APRN Adenocarcinoma of stomach (Primary Dx); Paroxysmal atrial fibrillation; Hyperlipidemia, not otherwise specified; Type 2 diabetes mellitus with hyperglycemia 04/27/2024 8:05 PM GENERAL SUPERINTENDENT Ancillary Procedure [facility] [address] [place] [address] Cancer 04/27/2024 8:00 PM GENERAL SUPERINTENDENT Ancillary Procedure [facility] [address] [place] [address] Cancer 04/27/2024 Orders Only [facility] [address] [place] [address] Donnell Van Adenocarcinoma of stomach (Primary Dx) 04/24/2024 Documentation [facility] Access [facility] [address] [facility], 8th [place] [address] Mary Kay Santamaria, PYTHON ENGINEER 04/24/2024 Orders Only [facility] - Surgical Oncology [address] [place] [address], [facility] Floor Elevator [place] [phone] Mary Kay Santamaria, PYTHON ENGINEER Adenocarcinoma, NOS of stomach, NOS (Primary Dx) 04/24/2024 Telephone [facility] - Surgical Oncology [address] [place] [address], [facility] Floor Elevator [place] [phone] Mary Kay Santamaria, PYTHON ENGINEER 04/22/2024 Lab Requisition [facility] Sincere Moralez MD Jain, Shilpa, MD 04/21/2024 Orders Only [facility] [address] [place] [address], [address] [place], [place] [phone] Gillian Gomez PA-C Adenocarcinoma, NOS of stomach, NOS (Primary Dx); Adenocarcinoma of stomach 04/16/2024 Telephone [facility] [address] [place] [address] 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, rehabilitation specialist Call 04/15/2024 10:09 AM GENERAL SUPERINTENDENT Anesthesia Event MAIN OR [address] [place] [address] Meenakshi Crowe MD Miller, Wendy, [facility] 04/15/2024 10:05 AM GENERAL SUPERINTENDENT - 04/15/2024 1:25 PM GENERAL SUPERINTENDENT Surgery MAIN OR [address] [place], [place] [phone] John Fong MD ROBOTIC ASSISTED SURGICAL LAPAROSCOPY 04/15/2024 7:32 AM GENERAL SUPERINTENDENT - 04/15/2024 11:50 PM GENERAL SUPERINTENDENT Hospital Encounter MAIN OR [address] [place] [address] John Fong MD Adenocarcinoma of stomach (Primary Dx) Discharge Disposition: Home 04/15/2024 Travel 04/14/2024 2:30 PM GENERAL SUPERINTENDENT Consult [facility] - Surgical Oncology [address] [place] [address], [address] [place] [address] Gillian Gomez PA-C Badgwell, Brian, MD Adenocarcinoma, NOS of stomach, NOS (Primary Dx); Nausea 04/14/2024 Documentation [facility] - Surgical Oncology [address] [place] [address] Main [facility], 7th [place] [address] John Fong MD 04/13/2024 3:00 PM GENERAL SUPERINTENDENT Consult [facility] [address] [place] [address], 7th Floor Elevator [place] [phone] Marianela Hutchinson MD Mass of stomach (Primary Dx) 04/13/2024 2:02 PM GENERAL SUPERINTENDENT Anesthesia Event [facility] Management Center [address] [place] [address], 6th [place] [address] Curtis Moctezuma PA 04/12/2024 8:22 AM GENERAL SUPERINTENDENT - 04/12/2024 3:42 PM GENERAL SUPERINTENDENT Hospital Encounter MAIN P06B [address] [place] [address] Nghia Zhu MD Elsayem, Ahmed, MD Nausea and vomiting (Primary Dx); Gastric cancer; Pancreatitis Discharge Disposition: Left Against Medical Advice 04/12/2024 Travel 04/09/2024 8:25 PM GENERAL SUPERINTENDENT Ancillary Procedure [facility] [address] [place] [address] Margoth Souza MD Cancer 04/09/2024 8:20 PM GENERAL SUPERINTENDENT Ancillary Procedure [facility] [address] [place] [address] Margoth Souza MD Cancer 04/09/2024 8:15 PM GENERAL SUPERINTENDENT Ancillary Procedure [facility] [address] [place] [address] Margoth Souza MD Cancer 04/09/2024 8:10 PM GENERAL SUPERINTENDENT Ancillary Procedure [facility] [address] [place] [address] Margoth Souza MD Cancer 04/09/2024 8:05 PM GENERAL SUPERINTENDENT Ancillary Procedure [facility] [address] [place] [address] Margoth Souza MD Cancer 04/09/2024 8:00 PM GENERAL SUPERINTENDENT Ancillary Procedure [facility] [address] [place] [address] Margoth Souza MD Cancer 04/09/2024 10:48 AM GENERAL SUPERINTENDENT - 04/09/2024 11:59 PM GENERAL SUPERINTENDENT Hospital Encounter [facility] [address] [place] [address] Ceci Nicholson MD Encounter for other preprocedural examination; Atherosclerosis of coronary 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, not otherwise specified; 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 Discharge Disposition: Home 04/09/2024 10:00 AM GENERAL SUPERINTENDENT POEM Appointments Per[facility] Management Center [address] [place] [address], 6th [place] [address] Margoth Souza MD 04/09/2024 9:56 AM GENERAL SUPERINTENDENT - 04/09/2024 10:47 AM GENERAL SUPERINTENDENT Hospital Encounter [facility] - Cardiology [address] [place] [address], 2nd [place] [address] Ceci Nicholson MD Adenocarcinoma of stomach; Hyperlipidemia, not otherwise specified; Encounter for other preprocedural examination; Atherosclerosis of coronary 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, not otherwise specified Discharge Disposition: Home 04/09/2024 9:00 AM GENERAL SUPERINTENDENT Consult Perioperative Evaluation and Management [address] [place] [address], 6th [place] [address] Mary Kay Santamaria APRN Misoi, Mercy W, MD Encounter for other preprocedural examination (Primary Dx); Adenocarcinoma of stomach; Paroxysmal atrial fibrillation; Hypertension; 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; Hyperlipidemia, not otherwise specified; Current use of 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; Atherosclerosis of coronary 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, not otherwise specified 04/09/2024 Travel 04/08/2024 Prep for Surgery [facility] - Surgical Oncology [address] [place] [address], 7th [place] [address] Mary Kay Santaamria APRN Adenocarcinoma of stomach (Primary Dx); Mass of stomach 04/08/2024 Orders Only [facility] - Surgical Oncology [address] [place] [address], [address] [place] [address] [place] [address] Mary Kay Santamaria APRN Adenocarcinoma of stomach (Primary Dx); Paroxysmal atrial fibrillation; Hypertension; 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; Hyperlipidemia, not otherwise specified; Current use of 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 04/08/2024 Orders Only [facility] [address] [place] [address], [address] [place], [place] [address] [address] Gillian Gomez PA-C Adenocarcinoma, NOS of stomach, NOS (Primary Dx) 04/06/2024 [facility] [address] [place] [address], [address] [place], [place] [address] [address] Roberto Poole PA 04/06/2024 Orders Only [facility] [address] [place] [address], [address] [place], [place] [address] [address] Roberto Poole PA Mass of stomach (Primary Dx) 04/06/2024 Orders Only [facility] [address] [place] [address], [address] [place] [address] [place] [address] Roberto Poole PA Mass of stomach (Primary Dx) 04/06/2024 Telephone [facility] [address] [place] [address], [address] [place] [address] [place] [address] Anais Meng RN 02/11/2024 Travel 02/10/2024 3:30 PM CDT Telemedicine [facility] [address] [place] [address], [facility] [place] [address] Margoth Souza MD Renal mass (Primary Dx) 01/02/2024 7:15 AM CDT Ancillary Procedure MAIN OR [address] [place] [address] Margoth Souza MD 01/02/2024 7:00 AM CDT - 01/02/2024 11:40 AM CDT Surgery MAIN OR [address] [place] [phone] Margoth Souza MD ROBOTIC ASSISTED PARTIAL NEPHRECTOMY 01/02/2024 6:58 AM CDT Anesthesia Event MAIN OR [facility] [place] [address] Alonzo Liu MD Majekodumi, Jessy, CRNA 01/02/2024 5:04 AM CDT - 01/03/2024 5:05 PM CDT Hospital Encounter MAIN P09B [address] [place] [address] Margoth Souza MD Renal mass (Primary Dx) Discharge Disposition: Home 01/02/2024 Travel 12/31/2023 1:04 PM CDT - 12/31/2023 11:59 PM CDT Hospital Encounter CT Imaging and Diagnostic Imaging [address] [place] [address], 3rd [place] [address] Margoth Souza MD Renal mass Discharge Disposition: Home 12/31/2023 8:00 AM CDT [facility] [address] [place] [address], 6th [place] [address] Nakia Kirby APRN Khan, Sonya, MD Type 2 diabetes mellitus with hyperglycemia [E11.65] (Primary Dx); Pre-surgery evaluation 12/30/2023 9:30 AM CDT Office [facility] [address] [place] [address], 7th [place] [address] Margoth Souza MD Renal mass 12/30/2023 Travel 12/30/2023 Telephone [facility] [address] [place] [address], 6th [place] [address] Winnie Archibald, ARTURO Appointment (Cannot get internet-phone broke) 12/30/2023 Orders Only [facility] [address] [place] [address], 7th [place] [address] Roberto Poole PA Renal mass (Primary Dx) 12/29/2023 Orders Only [facility] [address] [facility] [address], 6th Floor Ele[address] [address] [place], [place] [id number] Veronica Del Castillo APRN 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); Endocrine/metabolic screening; Renal cell carcinoma <Left side> after 12/27/2023 Immunizations Immunization Administration Dates Next Due Influenza, split virus, trivalent, preservative free 08/04/2018 Measles 01/09/1970 Pneumococcal, Unspecified 01/09/1975 Tetanus Toxoid, Unspecified 01/09/2019 Surgical History Surgery Date Site/Laterality Comments TOE AMPUTATION x2, 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, 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 APPENDECTOMY 05/20/1973 - 05/19/1974 Open WRIST SURGERY Left HAND SURGERY Right HIP ARTHRODESIS W/ ILIAC CRE ST BONE GRAFT Bilateral For hand surgeries CERVICAL SPINE SURGERY C3-6 fusion, x2 CT LAPAROSCOPY SURG PARTIAL NEPHRECTOMY 01/02/2024 Abdomen/Left Procedure: ROBOTIC ASSISTED PARTIAL NEPHRECTOMY; Surgeon: Margoth Souza MD; Location: MAIN OR; Service: UROLOGY CT ULTRASONIC GUIDANCE INTRAOPERATIVE 01/02/2024 Left Procedure: INTROPERATIVE ULTRASOUND - PERFORMED BY SURGEON; Surgeon: Margoth Souza MD; Location: MAIN OR; Service: UROLOGY CORONARY ARTERY BYPASS GRAFT 01/07/2024 CT LAPS ABD PRTM&OMENTUM DX W/WO SPEC BR/WA SPX 04/15/2024 Abdomen/N/A Procedure: ROBOTIC ASSISTED SURGICAL LAPAROSCOPY; Surgeon: Jonh Fong MD; Location: MAIN OR; Service: SURG ONC - GASTRIC/HIPEC Medical devices from this surgery are in the Medical Devices section. CT FLUORO CENTRAL VENOUS ACC ESS DEV PLACEMENT 04/15/2024 Neck/N/A Procedure: FLUORO GUIDANCE FOR CENTRAL VENOUS ACCESS DEVICE PLACEMENT, REPLACEMENT, OR REMOVAL; Surgeon: John Fong MD; Location: MAIN OR; Service: SURG ONC - GASTRIC/HIPEC Medical devices from this surgery are in the Medical Devices section. CT US VASC ACCESS SITS VSL P ATENCY NDL ENTRY 04/15/2024 N/A Procedure: US GUIDANCE WITH EVAL OF POTENTIAL ACCESS SITES, REALTIME US VISUALIZATION OF VASC NEEDLE ENTRY; Surgeon: John Fong MD; Location: MAIN OR; Service: SURG ONC - GASTRIC/HIPEC Medical devices from this surgery are in the Medical Devices section. CT INSJ TUNNELED CTR VAD W/S UBQ PORT AGE 5 YR/> 04/15/2024 Neck/N/A Procedure: PORT-A-CATH PLACEMENT; Surgeon: John Fong MD; Location: MAIN OR; Service: SURG ONC - GASTRIC/HIPEC Medical devices from this surgery are in the Medical Devices section. CT ESOPHAGOGASTRODUODENOSCOP Y US SCOPE W/ADJ STRXRS 05/19/2024 Esophagus/N/A Procedure: UPPER GASTROINTESTINAL ENDOSCOPY OF ESOPHAGUS, STOMACH, OR DUODENUM ANDJ ADJACENT STRUCTURES, WITH ENDOSCOPIC ULTRASOUND EXAMINATION; Surgeon: Brandon Alcala MD; Location: MAIN ENDOSCOPY; Service: GASTROENTEROLOGY CT ESOPHAGOGASTRODUODENOSCOP Y TRANSORAL DIAGNOSTIC 06/30/2024 Esophagus/N/A Procedure: [...] locally 12/03/2023-12/06/2023 of note, pt was on [facility] Peripheral vascular disease 2023 Left LE s/p [...] on file Legal Sex Male 11:38 AM GENERAL SUPERINTENDENT Gender Identity Not on file Sexual Orientation Not on file Occupation Industry Job Start Date Job End Date retired from [employer] Not on file N ot on file Not on file Travel History Travel Start Travel End [place] 04/12/2024 04/12/2024 Obstetrics History Last Filed Vital Signs Vital Sign Reading Time Taken Comments Blood Pressure 146/86 12/18/2024 11:22 AM CDT Pulse 69 12/18/2024 11:10 AM CDT Temperature 36.5 °C (97.7 °F) 12/18/2024 11:10 AM C DT Respiratory Rate 17 12/18/2024 11:10 AM CDT Oxygen Saturation 98% 12/18/2024 11:10 AM CDT Inhaled Oxygen Concentration - - Weight 76.8 kg (169 lb 5 oz) 12/18/2024 11:10 AM CDT Height 188 cm (6' 2.02") 12/18/2024 11:10 AM CDT Body Mass Index 21.73 12/18/2024 11:10 AM CDT Plan of Treatment Upcoming Encounters Date Type Department Care Team (Late st Contact Info) Description 01/05/2025 12:30 PM CDT Telemedicine [facility] [address] [place] [address], 6th [place] [address] Mary Jane Cassidy MD [address] [place] [phone] [email or web address] 01/06/2025 6:45 AM CDT Ancillary Procedure [facility] [address] [place] [address] Gillian Gomez PA-C [address] [place] [address] [email or web address] 01/06/2025 9:15 AM CDT Appointment [facility] [address] [place] [address] Marianela Hutchinson MD [address] [place] [address] [email or web address] 01/07/2025 8:40 AM CDT Follow-Up [facility] [address] [place] [address], [address] [place] [address] Marianela Hutchinson MD [address] [place] [phone] [email or web address] 02/05/2025 10:25 AM CDT Ancillary Procedure CT Imaging [address] [place] [phone] Margoth Souza MD [address] [place] [phone] [email or web address] 02/05/2025 10:45 AM CDT Lab [facility] [address] [place] [address] Margoth Souza MD [address] [place] [address] [email or web address] 02/05/2025 11:15 AM CDT Ancillary Procedure X-Ray Outpatient [facility] [address] [place] [address] Margoth Souza MD [address] [place] [phone] [email or web address] 02/08/2025 2:30 PM CDT Telemedicine [facility] [address] [place] [address] Margoth Souza MD [address] [place] [address] [email or web address] Due Date Last Done Comments COVID-19 Vaccine (#1) 01/09/1969 Pneumococcal Vaccine: 50+ Years (1 of 2 - PCV) 983 01/09/1975 Influenza Vaccine (#1) 2025 08/04/2018 Medical Devices Implanted Type Area Splitting Machine Feeder Device Identifier Shelf Expiration Date Model / Serial / Lot Slade Muhammad 6fr - [id number] Implanted:Qty: 1 on 04/15/2024 by John Fong MD at [facility] Implant Right: Neck [employer]ARD [employer]ESS SYSTEM[employer] 12/17/2024 [id number] / / [id number] Procedures Procedure Name Priority Date/Time Associated Diagnosis Comments SODIUM URINE Routine 11/13/2024 2:01 PM CDT Hyponatremia POTASSIUM LEVEL URINE Routine 11/13/2024 2:01 PM CDT Hyponatremia OSMOLALITY URINE Routine 11/13/2024 2:01 PM CDT Hyponatremia .CBC Routine 11/13/2024 1:57 PM CDT Adenocarcinoma of stomach OSMOLALITY Routine 11/13/2024 1:57 PM CDT Hyponatremia COMPREHENSIVE METABOLIC PANEL Routine 1:57 PM CDT Adenocarcinoma of stomach COMPLETE BLOOD COUNT W/ DIFFERENTIAL Routine 11/13/2024 1:57 PM CDT Adenocarcinoma of stomach XR FOOT 3+ VW BILATERAL Routine 11/14/19 1:46 PM CDT 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 mellitus .CBC Routine 10/30/2024 12:31 PM CDT Adenocarcinoma of stomach COMPREHENSIVE METABOLIC PANEL Routine 12:31 PM CDT Adenocarcinoma of stomach COMPLETE BLOOD COUNT W/ DIFFERENTIAL Routine 10/30/2024 12:31 PM CDT Adenocarcinoma of stomach POC GLUCOSE SCREEN Routine 10/29/2024 11:50 AM CDT POC GLUCOSE SCREEN Routine 10/29/2024 7:26 AM CDT POC GLUCOSE SCREEN Routine 10/28/2024 10:23 PM CDT POC GLUCOSE SCREEN Routine 10/28/2024 6:35 PM CDT COMPREHENSIVE METABOLIC PANEL Routine 2:45 PM CDT HEMOGLOBIN A1C Add-On 10/28/2024 11:01 AM CDT .CBC Routine 10/28/2024 11:01 AM CDT Adenocarcinoma of stomach COMPREHENSIVE METABOLIC PANEL Routine 11:01 AM CDT Adenocarcinoma of stomach COMPLETE BLOOD COUNT W/ DIFFERENTIAL Routine 10/28/2024 11:01 AM CDT Adenocarcinoma of stomach EKG, 12-LEAD (PORTABLE) STAT 10/28/2024 EKG, 12-LEAD (PORTABLE) STAT 10/28/2024 CT CHEST ABDOMEN PELVIS W CONTRAST STAT 10/25/2024 3:06 PM CDT XR ABDOMEN 2 VW AP W UPRIGHT AND OR DECUBITUS STAT 10/25/2024 1:17 PM CDT HC POC BLOOD UREA NITRO-BUN STAT 12/2024 8:26 AM CDT LIPASE LEVEL Add-On 10/25/2024 8:15 AM CDT Adenocarcinoma of stomach AMYLASE LEVEL Add-On 10/25/2024 8:15 AM CDT Adenocarcinoma of stomach .CBC Routine 10/25/2024 8:15 AM CDT LACTATE DEHYDROGENASE Routine 10/25/2024 8:15 AM CDT PHOSPHORUS LEVEL Routine 10/25/2024 8:15 AM CDT MAGNESIUM LEVEL Routine 10/25/2024 8:15 AM CDT COMPREHENSIVE METABOLIC PANEL Routine 8:15 AM CDT COMPLETE BLOOD COUNT W/ DIFFERENTIAL Routine 10/25/2024 8:15 AM CDT LIPASE LEVEL Add-On 10/25/2024 7:40 AM CDT AMYLASE LEVEL Add-On 10/25/2024 7:40 AM CDT FRACTIONATED BILIRUBIN Add-On 7:40 AM CDT .CBC Routine 10/25/2024 7:40 AM CDT Adenocarcinoma of stomach CARCINOEMBRYONIC ANTIGEN Routine 025 7:40 AM CDT Adenocarcinoma of stomach LACTATE DEHYDROGENASE Routine 10/25/2024 7:40 AM CDT Adenocarcinoma of stomach PHOSPHORUS LEVEL Routine 10/25/2024 7:40 AM CDT Adenocarcinoma of stomach MAGNESIUM LEVEL Routine 10/25/2024 7:40 AM CDT Adenocarcinoma of stomach COMPREHENSIVE METABOLIC PANEL Routine 7:40 AM CDT Adenocarcinoma of stomach COMPLETE BLOOD COUNT W/ DIFFERENTIAL Routine 10/25/2024 7:40 AM CDT Adenocarcinoma of stomach EKG, 12-LEAD (PORTABLE) STAT 10/25/2024 .CBC Routine 10/05/2024 11:15 AM CDT Adenocarcinoma [...] PELVIS W CONTRAST Routine 07/15/2024 4:38 PM GENERAL SUPERINTENDENT Adenocarcinoma of stomach .CBC Routine 07/15/2024 10:01 AM GENERAL SUPERINTENDENT Adenocarcinoma of stomach CARCINOEMBRYONIC ANTIGEN Routine 025 10:01 AM GENERAL SUPERINTENDENT Adenocarcinoma of stomach LACTATE DEHYDROGENASE Routine 07/15/2024 10:01 AM GENERAL SUPERINTENDENT Adenocarcinoma of stomach PHOSPHORUS LEVEL Routine 07/15/2024 10:01 AM GENERAL SUPERINTENDENT Adenocarcinoma of stomach MAGNESIUM LEVEL Routine 07/15/2024 10:01 AM GENERAL SUPERINTENDENT Adenocarcinoma of stomach COMPREHENSIVE METABOLIC PANEL Routine 10:01 AM GENERAL SUPERINTENDENT Adenocarcinoma of stomach COMPLETE BLOOD COUNT W/ DIFFERENTIAL Routine 07/15/2024 10:01 AM GENERAL SUPERINTENDENT Adenocarcinoma of stomach RESEARCH PROTOCOL [id number] Routine 07/15 10:01 AM GENERAL SUPERINTENDENT Adenocarcinoma of stomach MDA AP IHC WORKUP Routine 07/07/2024 12:29 PM GENERAL SUPERINTENDENT Adenocarcinoma of stomach POC GLUCOSE SCREEN Routine 06/30/2024 1:23 PM GENERAL SUPERINTENDENT PATHOLOGY BIOPSY INTERPRETATION Routine 06/30/2024 12:51 PM GENERAL SUPERINTENDENT Adenocarcinoma of stomach CT ESOPHAGOGASTRODUODENOSCOP Y TRANSORAL DIAGNOSTIC 06/30/2024 12:15 PM GENERAL SUPERINTENDENT Adenocarcinoma of stomach Case Notes 06/12 per gene to schedule on 06/30, per tor to schedule 06/30 thru lunch last AM case, slot held to offer. LVM and sent mychart to schedule-DC Special Needs ENROLLMENT NURSE CHRIS COMPLETE 06/18.ENROLLMENT NURSE CHRIS LVM FOR DAUGHTER WITH DETAILED INSTRUCTIONS FOR PROCEDURE IN ADDITION TO HOLD ON PLAVIX FOR 5 DAYS.ENROLLMENT NURSE CHRIS LVM 1ST CALL 06/16. POC CHEM 8 Routine 06/30/2024 11:10 AM GENERAL SUPERINTENDENT POC GLUCOSE SCREEN Routine 06/30/2024 10:52 AM GENERAL SUPERINTENDENT POC CHEM 8 Routine 06/29/2024 9:54 AM GENERAL SUPERINTENDENT EKG, 12-LEAD (SCHEDULED) Routine 06/29/2024 Adenocarcinoma of stomach PETCT F18 FDG (FLUORODEOXYGLUCOSE) WITH CONTRAST Routine 06/20/2024 12:42 PM GENERAL SUPERINTENDENT Adenocarcinoma, NOS of stomach, NOS Malignant neoplasm of overlapping sites of esophagus POC GLUCOSE SCREEN Routine 06/20/2024 11:06 AM GENERAL SUPERINTENDENT .CBC Routine 06/20/2024 10:35 AM GENERAL SUPERINTENDENT Adenocarcinoma, NOS of stomach, NOS CARCINOEMBRYONIC ANTIGEN Routine 025 10:35 AM GENERAL SUPERINTENDENT Adenocarcinoma, NOS of stomach, NOS LACTATE DEHYDROGENASE Routine 06/20/2024 10:35 AM GENERAL SUPERINTENDENT Adenocarcinoma, NOS of stomach, NOS PHOSPHORUS LEVEL Routine 06/20/2024 10:35 AM GENERAL SUPERINTENDENT Adenocarcinoma, NOS of stomach, NOS MAGNESIUM LEVEL Routine 06/20/2024 10:35 AM GENERAL SUPERINTENDENT Adenocarcinoma, NOS of stomach, NOS COMPREHENSIVE METABOLIC PANEL Routine 10:35 AM GENERAL SUPERINTENDENT Adenocarcinoma, NOS of stomach, NOS COMPLETE BLOOD COUNT W/ DIFFERENTIAL Routine 06/20/2024 10:35 AM GENERAL SUPERINTENDENT Adenocarcinoma, NOS of stomach, NOS .CBC Routine 06/15/2024 10:39 AM GENERAL SUPERINTENDENT Adenocarcinoma of stomach CARCINOEMBRYONIC ANTIGEN Routine 025 10:39 AM GENERAL SUPERINTENDENT Adenocarcinoma, NOS of stomach, NOS LACTATE DEHYDROGENASE Routine 06/15/2024 10:39 AM GENERAL SUPERINTENDENT Adenocarcinoma, NOS of stomach, NOS PHOSPHORUS LEVEL Routine 06/15/2024 10:39 AM GENERAL SUPERINTENDENT Adenocarcinoma, NOS of stomach, NOS MAGNESIUM LEVEL Routine 06/15/2024 10:39 AM GENERAL SUPERINTENDENT Adenocarcinoma, NOS of stomach, NOS COMPREHENSIVE METABOLIC PANEL Routine 10:39 AM GENERAL SUPERINTENDENT Adenocarcinoma of stomach COMPLETE BLOOD COUNT W/ DIFFERENTIAL Routine 06/15/2024 10:39 AM GENERAL SUPERINTENDENT Adenocarcinoma of stomach .CBC Routine 06/01/2024 11:10 AM GENERAL SUPERINTENDENT Adenocarcinoma of stomach TRANSFERRIN Routine 06/01/2024 11:10 AM GENERAL SUPERINTENDENT Iron deficiency anemia, not otherwise specified Adenocarcinoma of stomach FERRITIN Routine 06/01/2024 11:10 AM GENERAL SUPERINTENDENT Iron deficiency anemia, not otherwise specified Adenocarcinoma of stomach IRON LEVEL Routine 06/01/2024 11:10 AM GENERAL SUPERINTENDENT Iron deficiency anemia, not otherwise specified Adenocarcinoma of stomach COMPREHENSIVE METABOLIC PANEL Routine 11:10 AM GENERAL SUPERINTENDENT Adenocarcinoma of stomach COMPLETE BLOOD COUNT W/ DIFFERENTIAL Routine 06/01/2024 11:10 AM GENERAL SUPERINTENDENT Adenocarcinoma of stomach POC GLUCOSE SCREEN Routine 05/19/2024 1:52 PM GENERAL SUPERINTENDENT PATHOLOGY BIOPSY INTERPRETATION Routine 05/19/2024 1:10 PM GENERAL SUPERINTENDENT Adenocarcinoma of stomach CT ESOPHAGOGASTRODUODENOSCOP Y US SCOPE W/ADJ STRXRS 05/19/2024 12:34 PM GENERAL SUPERINTENDENT Adenocarcinoma of stomach Case Notes 04/24- WAITING FOR TRIAGE TO [facility] FOR 05/01- Special Needs ENROLLMENT NURSE [place] Call Completed 04/30/24ad laproscopy on 04/15/24 POC GLUCOSE SCREEN Routine 05/19/2024 12:21 PM GENERAL SUPERINTENDENT .CBC Routine 05/18/2024 10:55 AM GENERAL SUPERINTENDENT Adenocarcinoma, NOS of stomach, NOS CARCINOEMBRYONIC ANTIGEN Routine 024 10:55 AM GENERAL SUPERINTENDENT Adenocarcinoma, NOS of stomach, NOS LACTATE DEHYDROGENASE Routine 05/18/2024 10:55 AM GENERAL SUPERINTENDENT Adenocarcinoma, NOS of stomach, NOS PHOSPHORUS LEVEL Routine 05/18/2024 10:55 AM GENERAL SUPERINTENDENT Adenocarcinoma, NOS of stomach, NOS MAGNESIUM LEVEL Routine 05/18/2024 10:55 AM GENERAL SUPERINTENDENT Adenocarcinoma, NOS of stomach, NOS COMPREHENSIVE METABOLIC PANEL Routine 10:55 AM GENERAL SUPERINTENDENT Adenocarcinoma, NOS of stomach, NOS COMPLETE BLOOD COUNT W/ DIFFERENTIAL Routine 05/18/2024 10:55 AM GENERAL SUPERINTENDENT Adenocarcinoma, NOS of stomach, NOS .CBC Routine 05/04/2024 11:34 AM GENERAL SUPERINTENDENT Adenocarcinoma, NOS of stomach, NOS RESEARCH PROTOCOL [id number] Routine 05/04 11:34 AM GENERAL SUPERINTENDENT Adenocarcinoma of stomach CARCINOEMBRYONIC ANTIGEN Routine 024 11:34 AM GENERAL SUPERINTENDENT Adenocarcinoma, NOS of stomach, NOS LACTATE DEHYDROGENASE Routine 05/04/2024 11:34 AM GENERAL SUPERINTENDENT Adenocarcinoma, NOS of stomach, NOS PHOSPHORUS LEVEL Routine 05/04/2024 11:34 AM GENERAL SUPERINTENDENT Adenocarcinoma, NOS of stomach, NOS MAGNESIUM LEVEL Routine 05/04/2024 11:34 AM GENERAL SUPERINTENDENT Adenocarcinoma, NOS of stomach, NOS COMPREHENSIVE METABOLIC PANEL Routine 11:34 AM GENERAL SUPERINTENDENT Adenocarcinoma, NOS of stomach, NOS COMPLETE BLOOD COUNT W/ DIFFERENTIAL Routine 05/04/2024 11:34 AM GENERAL SUPERINTENDENT Adenocarcinoma, NOS of stomach, NOS VERIFY CATHETER TIP PLACEMENT Routine 3:50 PM GENERAL SUPERINTENDENT Adenocarcinoma of stomach POC GLUCOSE SCREEN Routine 04/15/2024 3:21 PM GENERAL SUPERINTENDENT XR CHEST 1 VW PORTABLE Routine 2:45 PM GENERAL SUPERINTENDENT POC GLUCOSE SCREEN Routine 04/15/2024 1:05 PM GENERAL SUPERINTENDENT POC GLUCOSE SCREEN Routine 04/15/2024 12:52 PM GENERAL SUPERINTENDENT CYTOLOGY NON-HOISTING PILE DRIVING ENGINEER INTERPRETATION Routine 04/15/2024 12:33 PM GENERAL SUPERINTENDENT Adenocarcinoma of stomach PATHOLOGY SURGICAL INTERPRETATION Routine 04/15/2024 12:13 PM GENERAL SUPERINTENDENT Adenocarcinoma of stomach FL CENTRAL VENOUS PLACE EXCHANGE Routine 04/15/2024 11:40 AM GENERAL SUPERINTENDENT Adenocarcinoma of stomach POC GLUCOSE SCREEN Routine 04/15/2024 9:[address] INSJ TUNNELED CTR VAD W/SUBQ PORT AGE 5 YR/> 04/15/2024 9:16 AM GENERAL SUPERINTENDENT Adenocarcinoma of stomach Special Needs MTL@0800 CT US VASC ACCESS SITS VSL PATENCY NDL ENTRY 04/15/2024 9:16 AM GENERAL SUPERINTENDENT Adenocarcinoma of stomach Special Needs MTL@0800 CT FLUORO CENTRAL VENOUS ACCESS DEV PLACEMENT 04/15/2024 9:16 AM GENERAL SUPERINTENDENT Adenocarcinoma of stomach Special Needs MTL@0800 CT LAPS ABD PRTM&OMENTUM DX W/WO SPEC BR/WA SPX 04/15/2024 9:16 AM GENERAL SUPERINTENDENT Adenocarcinoma of stomach Special Needs MTL@0800 CT ABDOMEN PELVIS W CONTRAST Routine 11:18 AM GENERAL SUPERINTENDENT .CBC Routine 04/12/2024 9:04 AM GENERAL SUPERINTENDENT LIPASE LEVEL Routine 04/12/2024 9:04 AM GENERAL SUPERINTENDENT AMYLASE LEVEL Routine 04/12/2024 9:04 AM GENERAL SUPERINTENDENT LACTATE DEHYDROGENASE Routine 04/12/2024 9:04 AM GENERAL SUPERINTENDENT FRACTIONATED BILIRUBIN Routine 9:04 AM GENERAL SUPERINTENDENT PHOSPHORUS LEVEL Routine 04/12/2024 9:04 AM GENERAL SUPERINTENDENT MAGNESIUM LEVEL Routine 04/12/2024 9:04 AM GENERAL SUPERINTENDENT COMPREHENSIVE METABOLIC PANEL Routine 9:04 AM GENERAL SUPERINTENDENT COMPLETE BLOOD COUNT W/ DIFFERENTIAL Routine 04/12/2024 9:04 AM GENERAL SUPERINTENDENT .CBC Routine 04/09/2024 11:09 AM GENERAL SUPERINTENDENT Encounter for other preprocedural examination Atherosclerosis of coronary 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, not otherwise specified THYROID STIMULATING HORMONE Routine 03/21 11:09 AM GENERAL SUPERINTENDENT Encounter for other preprocedural examination Atherosclerosis of coronary 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, not otherwise specified HEMOGLOBIN A1C Routine 04/09/2024 11:09 AM GENERAL SUPERINTENDENT 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 Encounter for other preprocedural examination COMPREHENSIVE METABOLIC PANEL Routine 11:09 AM GENERAL SUPERINTENDENT Encounter for other preprocedural examination Atherosclerosis of coronary 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, not otherwise specified COMPLETE BLOOD COUNT W/ DIFFERENTIAL Routine 04/09/2024 11:09 AM GENERAL SUPERINTENDENT Encounter for other preprocedural examination Atherosclerosis of coronary 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, not otherwise specified EKG, 12-LEAD (SCHEDULED) Routine 04/09/2024 Adenocarcinoma of stomach Hyperlipidemia, not otherwise specified Encounter for other preprocedural examination Atherosclerosis of coronary 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, not otherwise specified PATHOLOGY OUTSIDE INTERPRETATION Routine 04/02/[address] ABDOMEN AND PELVIS Routine 2023 8:21 AM GENERAL SUPERINTENDENT Cancer OSI CHEST Routine 03/23/2024 7:37 PM GENERAL SUPERINTENDENT Cancer OSI CT CHEST ABDOMEN PELVIS Routine 08/2023 7:37 PM GENERAL SUPERINTENDENT Cancer OSI CHEST Routine 03/23/2024 7:37 PM GENERAL SUPERINTENDENT Cancer OSI CT CHEST Routine 03/22/2024 8:21 AM GENERAL SUPERINTENDENT Cancer OSI CT ABDOMEN AND PELVIS Routine [...] INTRAOPERATIVE US STAT 01/02/2024 7:[address] ULTRASONIC GUIDANCE INTRAOPERATIVE 01/02/2024 6:08 AM CDT Renal mass Special Needs [id number]:Please collect and send tissue to pathology window with appropriate label. CT LAPAROSCOPY SURG PARTIAL NEPHRECTOMY 01/02/2024 6:08 AM CDT Renal mass Special Needs [id number]:Please collect and send tissue to pathology window with appropriate label. POC GLUCOSE SCREEN Routine 01/02/2024 6:[address] ABDOMEN W WO CONTRAST Routine 024 4:41 PM CDT Renal mass after 12/27/2023 Results * Sodium Level, Urine (11/13/2024 2:01 PM CDT) Urine Sodium 67 mmol/L 11/13/2024 3:28 PM CDT [facility] Comment:Normal range not cyndee ilable for collections less than 24 hours in duration. Urine Voided urine specimen / Unknown Non-blood Collection / Unknown 11/13/2024 2:01 PM CDT 11/13/2024 2:05 PM CDT us Shira Segovia MD URINE ORDERABLES Final Result Performing Organization Address City/[facility] Co de Phone Number [facility] Unless otherwise noted, all lab tests performed by: Division of Pathology and Laboratory Medicine [address] [place] [phone] * Potassium Urine (11/13/2024 2:01 PM CDT) Urine Potassium 73 mmol/L 3:28 PM CDT [facility] Comment:Normal range not cyndee ilable for collections less than 24 hours in duration. Urine Voided urine specimen / Unknown Non-blood Collection / Unknown 11/13/2024 2:01 PM CDT 11/13/2024 2:05 PM CDT us Shira Segovia MD URINE ORDERABLES Final Result Performing Organization Address City/[facility]/ZIP Co de Phone Number [facility] Unless otherwise noted, all lab tests performed by: Division of Pathology and Laboratory Medicine [address] [place] [phone] * Osmolality Urine (11/13/2024 2:01 PM CDT) Urine Osmolality 724 50 - 1,400 mOsm/kg H2O 11/13/2024 3:27 PM CDT [facility] Comment:Urinary osmolality m ay vary widely, depending on the state of hydration. Random urine osmolality can range from 50 to 1400 mOsm/kg H2O depending on fluid intake. In individuals on average fluid intake, urine osmolality is typically 300-900 mOsm/kg H2O. Units of measure: mOsm per Kg of water. Urine Voided urine specimen / Unknown Non-blood Collection / Unknown 11/13/2024 2:01 PM CDT 11/13/2024 2:05 PM CDT us Shira Segovia MD URINE ORDERABLES Final Result [facility] Unless otherwise noted, all lab tests performed by: Division of Pathology and Laboratory Medicine [address] [place] [phone] * (ABNORMAL) .CBC (11/13/2024 1:57 PM CDT) Only the most recent of18 resultswithin the time period is included. White Blood Cell 9.6 4.1 - 10.5 K/uL 11/13/2024 2:45 PM CDT [facility] Red Blood Cell 11/13/2024 2:45 PM T [facility] Comment:See Scanned Document Hemoglobin 11.6(L) 13.3 - 17.4 g/dL 11/13/2024 2:45 PM T [facility] Hematocrit 11/13/2024 2:45 PM T [facility] Comment:See Scanned Document Mean Cell Volume 11/14/19 2:45 PM T [facility] Comment:See Scanned Document Mean Cell Hemoglobin 11/13/2024 2:45 PM [facility] Comment:See Scanned Document Mean Cell Hemoglobin Concentration 11/13/2024 2:45 PM T [facility] Comment:See Scanned Document RDW-SD 11/13/2024 2:45 PM [facility] Comment:See Scanned Document Red Cell Diameter Width 11/13/2024 2:45 PM T [facility] Comment:See Scanned Document Platelet 165 160 - 397 K/uL 11/13/2024 2:45 PM T [facility] Mean Platelet Volume 11/13/2024 2:45 PM T [facility] Comment:See Scanned Document Neutrophil % 78.1(H) 43.2 - 72.7 % 11/13/2024 2:45 PM T [facility] Neutrophil Abs 7.50(H) 1.95 - 7.25 K/uL 11/13/2024 2:45 PM CDT [facility] Lymphocyte Abs 1.08 1.01 - 3.24 K/uL 11/13/2024 2:45 PM T [facility] [facility] Blood Peripheral blood specimen / Unknown Venipuncture / Unknown 11/13/2024 1:57 PM CDT 11/13/2024 2:02 PM CDT Gillian Gomez PA-C LAB BLOOD ORDERABLES Final Result [facility] [address] [facility] [place] [address] * (ABNORMAL) Comprehensive Metabolic Panel (11/13/2024 1:57 PM CDT) Only the most recent of18 resultswithin the time period is included. Bilirubin Total <0.3 0.0 - 1.2 mg/dL 11/13/2024 2:33 PM T [facility] Comment:Indocyanine Green (I CG) may cause falsely elevated bilirubin results. Total and direct bilirubin must not be measured from samples containing indocyanine green. False elevation of total bilirubin can be seen in patients with IgG concentrations above 28 g/L. eGFR 100 >=60 mL/min/1. 73 sq. m 11/13/2024 2:33 PM T [facility] Comment: The eGFRcr is calculated with [...] G2 fulfill criteria for CKD. Tot Protein 7.8 6.4 - 8.3 gm/dL 11/13/2024 2:33 PM [facility] Calcium Level Total 9.2 8.2 - 10.2 mg/dL 11/13/2024 2:33 PM [facility] Alkaline Phosphatase 99 40 - 129 U/L 11/13/2024 2:33 PM T [facility] Albumin Level 3.7 3.5 - 5.2 gm/dL 11/13/2024 2:33 PM [facility] AST 13 <=40 U/L 11/13/2024 2:33 PM [facility] ALT 6 <=41 U/L 11/13/2024 2:33 PM [facility] Sodium Level 135(L) 136 - 145 mmol/L 11/13/2024 2:33 PM [facility] Potassium Level 4.4 3.4 - 4.5 mmol/L 11/13/2024 2:33 PM [facility] Chloride 98 98 - 107 mmol/L 11/13/2024 2:33 PM [facility] CO2 26 22 - 29 mmol/L 11/13/2024 2:33 PM [facility] Anion Gap 11 4 - 14 mmol/L 11/13/2024 2:33 PM [facility] Creatinine 0.83 0.67 - 1.17 mg/dL 11/13/2024 2:33 PM [facility] BUN 19 6 - 23 mg/dL 11/13/2024 2:33 PM [facility] Glucose Level 217(H) 70 - 99 mg/dL 11/13/2024 2:33 PM [facility] Comment: Effective 12/14/15, the glucose reference intervals have been updated based on [place] [employer] guidelines (Standards of Medical Care in Diabetes 2016. Diabetes Care 2016; 39: S13-S22). Fasting blood glucose: Normal: 70-99 mg/dL Impaired fasting glucose (increased risk for diabetes or pre-diabetes): 100-125 mg/dL Diabetes mellitus: >/=126 mg/dL Random blood glucose: Normal: 70-199 mg/dL Note: Random glucose >100 mg/dL is associated with increased risk for diabetes. Blood Peripheral blood specimen / Unknown Venipuncture / Unknown 11/13/2024 1:57 PM CDT 11/13/2024 2:02 PM CDT Gillian Gomez PA-C LAB BLOOD ORDERABLES Final Result Performing Organization Address City/[facility]/ZIP Co de Phone Number [facility] [address] [facility] [place] [address] * Osmolality (11/13/2024 1:57 PM CDT) Osmolality 291 275 - 300 mOsm/kg 11/13/2024 3:30 PM CDT [facility] Comment:Units in mOsm per kg of water. Blood Peripheral blood specimen / Unknown Venipuncture / Unknown 11/13/2024 1:57 PM CDT 11/13/2024 2:02 PM CDT Shira Segovia MD LAB BLOOD ORDERABLES Final Resul t Performing Organization Address City/[facility] Co de Phone Number [facility] Unless otherwise noted, all lab tests performed by: Division of Pathology and Laboratory Medicine [address] [place] [phone] * X-ray Foot 3+ Views Bilateral (11/13/2024 1:46 PM CDT) Anatomical Region Laterality Modality Foot, Extremity Digital Radiogra phy 11/13/2024 1:54 PM CDT Impressions 11/13/2024 2:01 PM CDT 1. No evidence of acute osteomyelitis. 2. Chronic-appearing findings of the feet, described above. ACTIONABLE ITEMS/RECOMMENDATIONS*: None. *An Actionable Finding is a finding that may be unrelated to the original reason for imaging but potentially actionable, meaning further investigation may be necessary. The Actionable Findings Vigilance Unit (AFVU) assists medical providers with responding to additional radiologic findings that are unexpected and potentially actionable. Narrative 11/13/2024 2:01 PM CDT FULL RESULT: Examination: XR FOOT 3+ VW BILATERAL, 11/13/2024 1:46 PM. 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 Technique: AP, oblique and lateral views of the right and left feet on 6 images. Findings: Right foot: There is no acute fracture or dislocation. There is a healed fracture of the 3rd distal metatarsal. 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 There is chronic-appearing fragmentation of the 4th proximal phalanx. There is a small plantar calcaneal spur. There are extensive atherosclerotic calcifications. The retrocalcaneal bursa is clear. There is no tibiotalar joint effusion Left foot: There is no acute fracture or dislocation. The patient has undergone amputation of the 1st ray through the mid metatarsal diaphysis. There is an iatrogenic defect of the distal diaphysis of the 5th metatarsal. There is chronic deformity and erosion at the base of the 2nd proximal phalanx. There is chronic deformity at the 4th proximal interphalangeal joint. There is a chronic defect of the 4th distal tuft. There is a moderate plantar calcaneal spur with heterotopic ossification along the course of the plantar fascia. There are extensive atherosclerotic calcifications. The retrocalcaneal bursa is clear. There is no tibiotalar joint effusion. Procedure Note Dimitrios Benton MD PhD - 11/13/2024 FULL RESULT: Examination: XR FOOT 3+ VW BILATERAL, 11/13/2024 1:46 PM. 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 Technique: AP, oblique and lateral views of the right and left feet on 6images. Findings: Right foot: There is no acute fracture or dislocation. There is a healedfracture of the 3rd distal metatarsal. The patient has undergone amputation of the 5th ray to the mid metatarsaldiaphysis. There is chronic-appearing fragmentation of the 4th proximalphalanx. There is a small plantar calcaneal spur. There are extensive atherosclerotic calcifications. The retrocalcanealbursa is clear. There is no tibiotalar joint effusion Left foot: There is no acute fracture or dislocation. The patient has undergone amputation of the 1st ray through the midmetatarsal diaphysis. There is an iatrogenic defect of the distaldiaphysis of the 5th metatarsal. There is chronic deformity and erosion at the base of the 2nd proximalphalanx. There is chronic deformity at the 4th proximal interphalangealjoint. There is a chronic defect of the 4th distal tuft. There is a moderate plantar calcaneal spur with heterotopic ossificationalong the course of the plantar fascia. There are extensive atherosclerotic calcifications. The retrocalcanealbursa is clear. There is no tibiotalar joint effusion. IMPRESSION: 1. No evidence of acute osteomyelitis. 2. Chronic-appearing findings of the feet, described above. ACTIONABLE ITEMS/RECOMMENDATIONS*: None. *An Actionable Finding is a finding that may be unrelated to the originalreason for imaging but potentially actionable, meaning furtherinvestigation may be necessary. The Actionable Findings Vigilance Unit(AFVU) assists medical providers with responding to additional radiologicfindings that are unexpected and potentially actionable. Shira Segovia MD IMG DIAGNOSTIC IMAGING ORDERABLE S Final Result * (ABNORMAL) POC Glucose Screen - Fingerstick (10/29/2024 11:50 AM CDT) Only the most recent of27 resultswithin the time period is included. Glucose Screen 113(H) 70 - 99 mg/dL 10/29/2024 11:52 AM CDT [facility] POC Sample Type Capillary 10/29/2024 11:52 AM CDT [facility] Blood 10/29/2024 11:5 0 AM CDT 10/29/2024 11:52 AM CDT Narrative [facility] - 10/29/2024 11:52 AM CDT Capillary blood samples, e.g. obtained [...] questionable test results by core lab methodology. Lars Odonnell MD POCT ORDERABLES - DEVICE Final Result Performing Organization Address City/[facility] Co de Phone Number [facility] Unless otherwise noted, all lab tests performed by: Division of Pathology and Laboratory Medicine [address] [place] [phone] * (ABNORMAL) Hemoglobin A1c (10/28/2024 11:01 AM CDT) Only the most recent of2 resultswithin the time period is included. Hemoglobin A1c 6.3(H) 4.3 - 5.6 % 10/28/2024 7:05 PM CDT [facility] Blood Peripheral blood specimen / Unknown Venipuncture / Unknown 10/28/2024 11:01 AM CDT 10/28/2024 11:02 AM CDT Narrative [facility] - 10/28/2024 7:05 PM CDT HbA1c values >=6.5% are diagnostic of diabetes mellitus. Diagnosis should be confirmed by repeat testing. Therapeutic Action suggested: >8.0% HbA1c; Goal of therapy: <7.0% HbA1c Bessy Gaming APRN LAB BLOOD ORDERABLES Fin al Result Performing Organization Address [facility] Co de Phone Number [facility] Unless otherwise noted, all lab tests performed by: Division of Pathology and Laboratory Medicine [address] [place] [id number] * EKG, 12-Lead (Portable) (10/28/2024) Only the most recent of3 resultswithin the time period is included. John Forte MD ECG ORDERABLES Final Result Performing Organization Address [facility] Co de Phone Number [facility] * CT Chest Abdomen Pelvis with Contrast (10/25/2024 3:06 PM CDT) Only the most recent of2 resultswithin the time period is included. Anatomical Region Laterality Modality Abdomen, Pelvis, Chest Computed Tomography 10/25/2024 4:25 PM CDT Impressions 10/25/2024 4:53 PM CDT 1. Diffuse wall thickening of the distal esophagus, likely representing the primary carcinoma. 2. Hyperenhancement and wall thickening of the transverse colon, which could represent metastatic disease versus colitis. 3. Mild wall thickening of the ascending colon. Differential diagnosis includes underdistention, colitis and metastases. 4. Mild stranding in the retroperitoneum, some of which surrounds the pancreas. Pancreatitis is not excluded in the appropriate clinical setting. ACTIONABLE ITEMS/RECOMMENDATIONS*: None. *An Actionable Finding is a finding that may be unrelated to the original reason for imaging but potentially actionable, meaning further investigation may be necessary. The Actionable Findings Vigilance Unit (AFVU) assists medical providers with responding to additional radiologic findings that are unexpected and potentially actionable. Narrative 10/25/2024 4:53 PM CDT FULL RESULT: Examination: CT CHEST ABDOMEN PELVIS W CONTRAST on 10/25/2024 3:06 PM. Clinical History: Nausea Gastro-esophageal reflux disease without esophagitis Adenocarcinoma of stomach Renal mass Paroxysmal atrial fibrillation. 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 Indication: Cancer staging or restaging, nausea and vomiting. Comparison: 07/15/2024. Technique: CT CHEST ABDOMEN PELVIS W CONTRAST. Findings: CHEST: Lungs and Pleura: There is minimal bibasilar atelectasis. Clustered nodular opacities are present of the left lung base, possible infection/inflammation. There are no suspicious pulmonary nodules. No pleural effusion. Cardiomediastinum: A subcentimeter right thyroid nodule is present. A right internal jugular chest port terminates near the cavoatrial junction. There are post surgical changes of median sternotomy and CABG. Lymph nodes: No lymphadenopathy. ABDOMEN AND PELVIS: Hepatobiliary: The liver is homogeneous in attenuation, without evidence of a focal mass. No biliary dilatation. A punctate gallstone is present in the gallbladder. No evidence of cholecystitis. Spleen: The spleen is mildly enlarged measuring 14.2 cm in longitudinal dimension. Pancreas: There is mild stranding surrounding the pancreas, which could represent pancreatitis in the appropriate clinical setting. No pancreatic duct dilatation. Adrenal Glands: There is a 1.7 cm left adrenal nodule, possible adenoma. The right adrenal gland is unremarkable. Kidneys, Ureters, Bladder: No hydronephrosis. There are post surgical changes of partial left nephrectomy. The right kidney is unremarkable. There is mild perinephric stranding. There is mild apparent wall thickening of the urinary bladder, possibly representing cystitis. Gastrointestinal Tract: There is diffuse wall thickening of the distal esophagus, which may represent the primary tumor. A tumor in the gastric antrum is not definitely visualized. There is segmental wall thickening involving the transverse colon (13/64) which demonstrates hyperenhancement. Mild wall thickening is also present of the ascending colon. This could represent colitis or, in the case of the transverse colon, possibly metastases. There is no bowel obstruction. Pelvic Organs: The prostate is mildly enlarged. Peritoneum/Retroperitoneum: Small volume ascites is present. Lymph Nodes: There is a 1 cm right common iliac lymph node (13/132), indeterminate. MUSCULOSKELETAL: Degenerative changes are present of the spine. No suspect osseous lesions. Procedure Note Zora Gusman MD - 10/25/2024 FULL RESULT: Examination: CT CHEST ABDOMEN PELVIS W CONTRAST on 10/25/2024 3:06 PM. Clinical History: Nausea Gastro-esophageal reflux disease without esophagitis Adenocarcinoma of stomach Renal mass Paroxysmal atrial fibrillation. 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 Indication: Cancer staging or restaging, nausea and vomiting. Comparison: 07/15/2024. Technique: CT CHEST ABDOMEN PELVIS W CONTRAST. Findings: CHEST: Lungs and Pleura: There is minimal bibasilar atelectasis. Clusterednodular opacities are present of the left lung base, possibleinfection/inflammation. There are no suspicious pulmonary nodules. Nopleural effusion. Cardiomediastinum: A subcentimeter right thyroid nodule is present. Aright internal jugular chest port terminates near the cavoatrial junction.There are post surgical changes of median sternotomy and CABG. Lymph nodes: No lymphadenopathy. ABDOMEN AND PELVIS: Hepatobiliary: The liver is homogeneous in attenuation, without evidenceof a focal mass. No biliary dilatation. A punctate gallstone is present inthe gallbladder. No evidence of cholecystitis. Spleen: The spleen is mildly enlarged measuring 14.2 cm in longitudinaldimension. Pancreas: There is mild stranding surrounding the pancreas, which couldrepresent pancreatitis in the appropriate clinical setting. No pancreaticduct dilatation. Adrenal Glands: There is a 1.7 cm left adrenal nodule, possible adenoma.The right adrenal gland is unremarkable. Kidneys, Ureters, Bladder: No hydronephrosis. There are post surgicalchanges of partial left nephrectomy. The right kidney is unremarkable.There is mild perinephric stranding. There is mild apparent wall thickening of the urinary bladder, possiblyrepresenting cystitis. Gastrointestinal Tract: There is diffuse wall thickening of the distalesophagus, which may represent the primary tumor. A tumor in the gastricantrum is not definitely visualized. There is segmental wall thickening involving the transverse colon (13/64)which demonstrates hyperenhancement. Mild wall thickening is also presentof the ascending colon. This could represent colitis or, in the case ofthe transverse colon, possibly metastases. There is no bowelobstruction. Pelvic Organs: The prostate is mildly enlarged. Peritoneum/Retroperitoneum: Small volume ascites is present. Lymph Nodes: There is a 1 cm right common iliac lymph node (13/132),indeterminate. MUSCULOSKELETAL: Degenerative changes are present of the spine. No suspect osseouslesions. IMPRESSION: 1. Diffuse wall thickening of the distal esophagus, likely representingthe primary carcinoma. 2. Hyperenhancement and wall thickening of the transverse colon, whichcould represent metastatic disease versus colitis. 3. Mild wall thickening of the ascending colon. Differential diagnosisincludes underdistention, colitis and metastases. 4. Mild stranding in the retroperitoneum, some of which surrounds thepancreas. Pancreatitis is not excluded in the appropriate clinicalsetting. ACTIONABLE ITEMS/RECOMMENDATIONS*: None. *An Actionable Finding is a finding that may be unrelated to the originalreason for imaging but potentially actionable, meaning furtherinvestigation may be necessary. The Actionable Findings Vigilance Unit(AFVU) assists medical providers with responding to additional radiologicfindings that are unexpected and potentially actionable. Mohan Torres MD IM CT ORDERABLES Final Resu lt * X-ray Abdomen 2 View AP W Upright and/or Decubitus (10/25/2024 1:17 PM CDT) Anatomical Region Laterality Modality Abdomen Digital Radiogra phy 10/25/2024 5:12 PM CDT Impressions 10/25/2024 5:13 PM CDT No evidence of bowel obstruction. Narrative 10/25/2024 5:13 PM CDT FULL RESULT: Examination: XR ABDOMEN 2 VW AP W UPRIGHT AND OR DECUBITUS on 10/25/2024 1:17 PM Clinical History: Nausea Gastro-esophageal reflux disease without esophagitis Adenocarcinoma of stomach Renal mass Paroxysmal atrial fibrillation Indication: Abdominal Pain. Comparison: CT 07/15/2024 TECHNIQUE: XR ABDOMEN 2 VW AP W UPRIGHT AND OR DECUBITUS FINDINGS: The visualized lung bases are clear. Median sternotomy wires are noted. The bowel gas pattern is nonobstructive. There is no evidence of pneumoperitoneum. Degenerative changes are present of the spine. Procedure Note Zora Gusman MD - 10/25/2024 FULL RESULT: Examination: XR ABDOMEN 2 VW AP W UPRIGHT AND OR DECUBITUS on 51:17 PM Clinical History: Nausea Gastro-esophageal reflux disease without esophagitis Adenocarcinoma of stomach Renal mass Paroxysmal atrial fibrillation Indication: Abdominal Pain. Comparison: CT 07/15/2024 TECHNIQUE: XR ABDOMEN 2 VW AP W UPRIGHT AND OR DECUBITUS FINDINGS: The visualized lung bases are clear. Median sternotomy wires are noted. The bowel gas pattern is nonobstructive. There is no evidence ofpneumoperitoneum. Degenerative changes are present of the spine. IMPRESSION: No evidence of bowel obstruction. us Mohan Torres MD IMG DIAGNOSTIC IMAGING ORDER YASHIRA Final Result * (ABNORMAL) POC Chem 8 without Hemoglobin and Hematocrit (10/25/2024 8:26 AM CDT) POC Sodium 136(L) 138 - 146 mmol/L 10/25/2024 8:30 AM CDT [facility] POC Potassium 4.9 3.5 - 4.9 mmol/L 10/25/2024 8:30 AM CDT [facility] POC Chloride 101 98 - 109 mmol/L 10/25/2024 8:30 AM CDT [facility] POC VTCO2 25 24 - 29 mmol/L 10/25/2024 8:30 AM CDT [facility] POC Anion Gap 16 10 - 20 mmol/L 10/25/2024 8:30 AM CDT [facility] POC BUN 16 8 - 26 mg/dL 10/25/2024 8:30 AM CDT [facility] POC Creatinine 0.8 0.6 - 1.3 mg/dL 10/25/2024 8:30 AM [facility] Comment:Medications, especia lly hydroxyurea or supplements, such as ascorbate, can interfere with test results causing a falsely and significantly higher result than expected. If a problem is suspected with a patient's result, a sample should be sent to the laboratory for confirmatory testing. POC I Glu 147(H) 70 - 99 mg/dL 10/25/2024 8:30 AM [facility] Comment:Medications, especia lly hydroxyurea or supplements, such as ascorbate, can interfere with test results causing a falsely and significantly higher result than expected. If a problem is suspected with a patient's result, a sample should be sent to the laboratory for confirmatory testing. POC Ionized Calcium 1.20 1.12 - 1.32 mmol/L 10/25/2024 8:30 AM [facility] POC Sample Type Venous 8:30 AM [facility] POC eGFR 101 >=60 mL/min/1.7 3 sq. m 10/25/2024 8:30 AM [facility] [...] nor G2 fulfill criteria for CKD. Blood 10/25/2024 8:26 AM CDT 10/25/2024 8:30 AM CDT Narrative [facility] - 10/25/2024 8:30 AM CDT Method description: The i-STAT is an analyzer [...] analyte concentration by an electrochemical assay. us Mohan Torres MD POINT OF CARE TEST ORDERABLE S Final Result Performing Organization Address [facility] de Phone Number [facility] Unless otherwise noted, all lab tests performed by: Division of Pathology and Laboratory Medicine [address] [place] [phone] * Phosphorus Level (10/25/2024 8:15 AM CDT) Only the most recent of10 resultswithin the time period is included. Phosphorus Level 2.7 2.5 - 4.5 mg/dL 10/25/2024 8:55 AM CDT [facility] Blood Peripheral blood specimen / Unknown Port / Unknown 10/25/2024 8:15 AM CDT 10/25/2024 8:22 AM CDT us Mohan Torres MD LAB BLOOD ORDERABLES Final R esult Performing Organization Address [facility] de Phone Number [facility] Unless otherwise noted, all lab tests performed by: Division of Pathology and Laboratory Medicine [address] [place] [phone] * Magnesium Level (10/25/2024 8:15 AM CDT) Only the most recent of10 resultswithin the time period is included. Magnesium Level 2.0 1.6 - 2.6 mg/dL 10/25/2024 8:55 AM CDT [facility] Blood Peripheral blood specimen / Unknown Port / Unknown 10/25/2024 8:15 AM CDT 10/25/2024 8:22 AM CDT Mohan Torres MD LAB BLOOD ORDERABLES Final R esult Performing Organization Address City/[facility] Co de Phone Number [facility] Unless otherwise noted, all lab tests performed by: Division of Pathology and Laboratory Medicine [address] [place] [phone] * (ABNORMAL) Lipase Level (10/25/2024 8:15 AM CDT) Only the most recent of3 resultswithin the time period is included. Lipase Level 202(H) 13 - 60 U/L 10/27/2024 7:12 AM CDT [facility] Blood Peripheral blood specimen / Unknown Port / Unknown 10/25/2024 8:15 AM CDT 10/25/2024 8:22 AM CDT Narrative [facility] - 10/27/2024 7:12 AM CDT Reference range established based on adult population Gillian Gomez PA-C LAB BLOOD ORDERABLES Final Result Performing Organization Address [facility] de Phone Number [facility] Unless otherwise noted, all lab tests performed by: Division of Pathology and Laboratory Medicine [address] [place] [phone] * LDH (10/25/2024 8:15 AM CDT) Only the most recent of10 resultswithin the time period is included. LDH 186 135 - 225 U/L 10/25/2024 8:55 AM CDT [facility] Blood Peripheral blood specimen / Unknown Port / Unknown 10/25/2024 8:15 AM CDT 10/25/2024 8:22 AM CDT Narrative [facility] - 10/25/2024 8:55 AM CDT Results greater than 1651 U/L may not be reliable due to matrix effect with extended dilution as it exceeds the computer technical specialist's recommended limit. Caution should be exercised when interpreting such values and done in conjunction with clinical context. Mohan Torres MD LAB BLOOD ORDERABLES Final R esult Performing Organization Address City/[facility]/ZIP Co de Phone Number [facility] Unless otherwise noted, all lab tests performed by: Division of Pathology and Laboratory Medicine [address] [place] [phone] * (ABNORMAL) Amylase Level (10/25/2024 8:15 AM CDT) Only the most recent of3 resultswithin the time period is included. Amylase Level 107(H) 28 - 100 U/L 10/27/2024 7:12 AM CDT [facility] Blood Peripheral blood specimen / Unknown Port / Unknown 10/25/2024 8:15 AM CDT 10/25/2024 8:22 AM CDT Gillian Gomez PA-C LAB BLOOD ORDERABLES Final Result [facility] Unless otherwise noted, all lab tests performed by: Division of Pathology and Laboratory Medicine [address] [place] [id number] * Fractionated Bilirubin (10/25/2024 7:40 AM CDT) Only the most recent of2 resultswithin the time period is included. Bilirubin Direct 10/26/19 8:50 AM CDT [facility] Comment: Direct and indirect bilirubin will not be reported when Total bilirubin result is <0.3 mg/dL Indocyanine Green (ICG) may cause falsely elevated bilirubin results. Total and direct bilirubin must not be measured from samples containing indocyanine green. Bilirubin Indirect 2024 8:50 AM CDT [facility] Comment:Direct and indirect bilirubin will not be reported when Total bilirubin result is <0.3 mg/dL Bilirubin Total <0.3 0.0 - 1.2 mg/dL 10/25/2024 8:50 AM CDT [facility] Comment: Direct and indirect bilirubin [...] with IgG concentrations above 28 g/L. Blood Venous blood specimen / Unknown Port / Unknown 10/25/2024 7:40 AM CDT 10/25/2024 8:14 AM CDT Mohan Torres MD LAB BLOOD ORDERABLES Final R esult Performing Organization Address City/[facility] Co de Phone Number [facility] Unless otherwise noted, all lab tests performed by: Division of Pathology and Laboratory Medicine [address] [place] [phone] * CEA (10/25/2024 7:40 AM CDT) Only the most recent of8 resultswithin the time period is included. [facility] Carcinoembryonic Antigen 3.3 <=3.8 ng/mL 10/25/2024 9:14 AM CDT [facility] Blood Venous blood specimen / Unknown Port / Unknown 10/25/2024 7:40 AM CDT 10/25/2024 8:14 AM CDT Narrative [facility] - 10/25/2024 9:14 AM CDT Reference Ranges (age 20-69 years): Non-smoker: <= 3.8 ng/mL Smoker: <= 5.5 ng/mL This test is measured by electrochemiluminescence immunoassay on Cornelius Nikki immunoassay analyzers. Results obtained in different methods are not interchangeable. Gillain Gomez PA-C LAB BLOOD ORDERABLES Final Result Performing Organization Address [facility] de Phone Number [facility] Unless otherwise noted, all lab tests performed by: Division of Pathology and Laboratory Medicine [address] [place] [id number] * Research Protocol [id number] (07/15/2024 10:01 AM GENERAL SUPERINTENDENT) Only the most recent of2 resultswithin the time period is included. [facility] Research Protocol Specimen Specimen Collected, Ready for Pickup. 07/15/2024 12:00 PM GENERAL SUPERINTENDENT [facility] Blood Venipuncture / Unknown 07/15/2024 10:01 AM GENERAL SUPERINTENDENT 07/15/2024 10:10 AM GENERAL SUPERINTENDENT us Marianela Hutchinson MD RESEARCH LAB Z CODES Final Re sult [facility] Unless otherwise noted, all lab tests performed by: Division of Pathology and Laboratory Medicine [address] [place] [phone] * IHC Workup (07/07/2024 12:29 PM GENERAL SUPERINTENDENT) Tissue 07/07/2024 12:2 9 PM GENERAL SUPERINTENDENT 07/07/2024 12:29 PM GENERAL SUPERINTENDENT Gillian Gomez PA-C [facility] BIOMARKER ORDERABLE S Final Result Performing Organization Address [facility] de Phone Number [facility] [address] [address], [place] * Pathology Biopsy Interpretation (06/30/2024 12:51 PM GENERAL SUPERINTENDENT) Only the most recent of2 resultswithin the time period is included. Addendum 1 By immunohistochemistry, approximately 10% of the tumor cells show weakly to moderately cytoplasmic staining for claudin 18. By immunohistochemistry the combined positive score (CPS) for PD-L1 is <1. 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 07/10/2024 8:47 AM GENERAL SUPERINTENDENT [facility] at 1826 GENERAL SUPERINTENDENT Gross Description A: Esophagus, lower esophageal ulcer at 37cm: Multiple soft light castillo tissue fragments, 0.7 x 0.6 x 0.1 cm in aggregate, entirely submitted in A1. ET 07/10/2024 8:47 AM GENERAL SUPERINTENDENT [facility] Biomarker Block(s) Block for biomarker testing: A1 07/10/2024 8:47 AM [facility] Disclaimer "Some tests reported here may have been developed and performance characteristics determined by [facility]. These tests have not been specifically cleared or approved by the U.S. Food and Drug Administration. If applicable, controls were reviewed and showed appropriate reactivity." 07/10/2024 8:47 AM [facility] Tissue (Esophagus) 06/30/2024 12:51 PM GENERAL SUPERINTENDENT 06/30/2024 2:51 PM [facility] us Brandon Galo MD LAB PATHOLOGY ORDERA BLES Edited Result - Final [facility] [address] [place] [address], [place] * (ABNORMAL) POC Chem 8 (06/30/2024 11:10 AM [facility]) Only the most recent of2 resultswithin the time period is included. POC Sodium 136(L) 138 - 146 mmol/L 06/30/2024 11:13 AM [facility] POC Potassium 4.5 3.5 - 4.9 mmol/L 06/30/2024 11:13 AM [facility] POC Chloride 100 98 - 109 mmol/L 06/30/2024 11:13 AM [facility] POC VTCO2 27 24 - 29 mmol/L 06/30/2024 11:13 AM [facility] POC Anion Gap 14 10 - 20 mmol/L 06/30/2024 11:13 AM [facility] POC BUN 30(H) 8 - 26 mg/dL 06/30/2024 11:13 AM [facility] POC Creatinine 1.1 0.6 - 1.3 mg/dL 06/30/2024 11:13 AM [facility] Comment:Medications, especia lly hydroxyurea or supplements, such as ascorbate, can interfere with test results causing a falsely and significantly higher result than expected. If a problem is suspected with a patient's result, a sample should be sent to the laboratory for confirmatory testing. POC I Glu 182(H) 70 - 99 mg/dL 06/30/2024 11:13 AM [facility] Comment:Medications, especia lly hydroxyurea or supplements, such as ascorbate, can interfere with test results causing a falsely and significantly higher result than expected. If a problem is suspected with a patient's result, a sample should be sent to the laboratory for confirmatory testing. POC Ionized Calcium 1.26 1.12 - 1.32 mmol/L 06/30/2024 11:13 AM [facility] POC Hct 39.0 38.0 - 51.0 % 06/30/2024 11:13 AM [facility] POC Hgb 13.3 12.0 - 17.0 gm/dL 06/30/2024 11:13 AM [facility] Comment:Hematocrit values fr om the [...] POC Sample Type Venous 11:13 AM [facility] POC eGFR 77 >=60 mL/min/1.7 3 sq. m 06/30/2024 11:13 AM [facility] Comment: The eGFRcr [...] for CKD. Blood 06/30/2024 11:1 0 AM GENERAL SUPERINTENDENT 06/30/2024 11:13 AM GENERAL SUPERINTENDENT Narrative [facility] - 06/30/2024 11:13 AM GENERAL SUPERINTENDENT Method description: The i-STAT is an analyzer [...] DE VICE Final Result Performing Organization Address [facility] Co de Phone Number [facility] Unless otherwise noted, all lab tests performed by: Division of Pathology and Laboratory Medicine [address] [place] [id number] * EKG, 12-Lead (Scheduled) (06/29/2024) Only the most recent of2 resultswithin the time period is included. Mary Kay Santamaria APRN ECG ORDERABLES Final R esult Performing Organization Address [facility] Co de Phone Number [facility] IECG * PETCT F18 FDG (Fluorodeoxyglucose) with contrast (06/20/2024 12:42 PM GENERAL SUPERINTENDENT) Anatomical Region Laterality Modality Whole Body Positron Emissio n Tomography (PET) 06/20/2024 3:10 PM GENERAL SUPERINTENDENT Impressions 06/20/2024 4:38 PM GENERAL SUPERINTENDENT Biopsy-proven malignancy in the region of the [...] and potentially actionable. Narrative 06/20/2024 4:38 PM GENERAL SUPERINTENDENT FULL RESULT: Examination: 18F-FDG-PET/CT with contrast, 06/20/2024 [...] * Transferrin with TIBC (06/01/2024 11:10 AM GENERAL SUPERINTENDENT) Transferrin 211 200 - 360 mg/dL 06/01/2024 12:15 PM GENERAL SUPERINTENDENT [facility] Total Iron Binding Capacity 295 250 - 450 mcg/dL 06/01/2024 12:15 PM GENERAL SUPERINTENDENT [facility] Blood Peripheral blood specimen / Unknown Venipuncture / Unknown 06/01/2024 11:10 AM GENERAL SUPERINTENDENT 06/01/2024 11:23 AM GENERAL SUPERINTENDENT Marianela Hutchinson MD LAB BLOOD ORDERABLES Final Re sult [facility] Unless otherwise noted, all lab tests performed by: Division of Pathology and Laboratory Medicine [address] [place] [phone] * (ABNORMAL) Iron Level (06/01/2024 11:10 AM GENERAL SUPERINTENDENT) Iron Level 38(L) 59 - 158 mcg/dL 06/01/2024 12:15 PM GENERAL SUPERINTENDENT [facility] Is patient fasting? No 06/01/2024 12:15 PM GENERAL SUPERINTENDENT [facility] Blood Peripheral blood specimen / Unknown Venipuncture / Unknown 06/01/2024 11:10 AM GENERAL SUPERINTENDENT 06/01/2024 11:23 AM GENERAL SUPERINTENDENT Marianela Hutchinson MD LAB BLOOD ORDERABLES Final Re sult Performing Organization Address [facility] Co de Phone Number [facility] Unless otherwise noted, all lab tests performed by: Division of Pathology and Laboratory Medicine [address] [place] [phone] [place] [address] Unless otherwise noted, all lab tests performed by: Division of Pathology and Laboratory Medicine [address] [place] [address] * Ferritin Level (06/01/2024 11:10 AM GENERAL SUPERINTENDENT) Ferritin Level 59 30 - 400 ng/mL 06/01/2024 12:15 PM GENERAL SUPERINTENDENT [facility] Blood Peripheral blood specimen / Unknown Venipuncture / Unknown 06/01/2024 11:10 AM GENERAL SUPERINTENDENT 06/01/2024 11:23 AM GENERAL SUPERINTENDENT Narrative [facility] - 06/01/2024 12:15 PM GENERAL SUPERINTENDENT Reference range established for age 20 - 60 years Marianela Hutchinson MD LAB BLOOD ORDERABLES Final Re sult Performing Organization Address [facility] Co de Phone Number [facility] Unless otherwise noted, all lab tests performed by: Division of Pathology and Laboratory Medicine [address] [place] [address] * Tip Verification Central Vascular Access Device (04/15/2024 3:50 PM GENERAL SUPERINTENDENT) Narrative John Fong MD - 04/15/2024 3:50 PM GENERAL SUPERINTENDENT John Fong MD 04/15/2024 3:50 PM Central Vascular Access Device Tip Verification Performed by: John Fong MD Authorized by: John Fong MD CVAD Properties Date device placed: 04/15/2024 Device placement location: [facility] Catheter Type: Implanted venous port Catheter lumen: Single lumen Vein location: Internal jugular vein Laterality: Right Tip in good position and cleared for infusion John Fong MD IV THERAPY ORDERABLES Final Re sult * XR Chest 1 View Portable (04/15/2024 2:45 PM GENERAL SUPERINTENDENT) Anatomical Region Laterality Modality Chest Digital Radiogra phy 04/15/2024 2:50 PM GENERAL SUPERINTENDENT Impressions 04/15/2024 2:53 PM GENERAL SUPERINTENDENT 1. Right infusion port catheter terminates over [...] and potentially actionable. Narrative 04/15/2024 2:53 PM GENERAL SUPERINTENDENT FULL RESULT: Examination: XR CHEST 1 VW [...] IMAGING ORDERAB LES Final Result * Cytology Non-Certified Health Education Specialist Interpretation (04/15/2024 12:33 PM GENERAL SUPERINTENDENT) Gross Description 4 Pap Stain Slides 750 ml. clear yellow fluid Specimen concentrated by cytocentrifugation technique 4 4:07 PM GENERAL SUPERINTENDENT [facility] Major Classification [facility]/benign 4 4:07 PM GENERAL SUPERINTENDENT [facility] at 1607 GENERAL SUPERINTENDENT Diagnosis Peritoneal washing: No metastatic carcinoma identified Reactive mesothelial cells and histiocytes 4 4:07 PM GENERAL SUPERINTENDENT [facility] at 1607 GENERAL SUPERINTENDENT Retained/Biomark er Testing SR:4S 4 4:07 PM GENERAL SUPERINTENDENT [facility] Informational Points Some tests reported here may have been developed and performance characteristics determined by [facility]. These tests have not been specifically cleared or approved by the U.S. Food and Drug Administration. 4 4:07 PM GENERAL SUPERINTENDENT [facility] Washing (Peritoneal Washing) 04/15/2024 12:33 PM GENERAL SUPERINTENDENT 04/15/2024 1:10 PM GENERAL SUPERINTENDENT us John Fong MD LAB CYTOLOGY ORDERABLES Final Result [facility] [address] [place] [address], [place] * Pathology Surgical Interpretation (04/15/2024 12:13 PM GENERAL SUPERINTENDENT) Only the most recent of2 resultswithin the time period is included. Submitted Clinical History Adenocarcinoma of stomach [C16.9] 04/20/2024 8:13 PM GENERAL SUPERINTENDENT [facility] Diagnosis A. Falciform ligament, resection: Fibroadipose tissue, no tumor present 04/20/2024 8:13 PM GENERAL SUPERINTENDENT [facility] at 2013 GENERAL SUPERINTENDENT Gross Description A: Falciform ligament, falciorm ligament biopsy....or 16: Consists of a fragment of castillo-yellow, lobulated fat (0.8 x 0.6 x 0.5 cm) entirely submitted in cassette A1. EF 04/20/2024 8:13 PM GENERAL SUPERINTENDENT [facility] Disclaimer "Some tests reported here may have been developed and performance characteristics determined by [facility]. These tests have not been specifically cleared or approved by the U.S. Food and Drug Administration. If applicable, controls were reviewed and showed appropriate reactivity." 04/20/2024 8:13 PM GENERAL SUPERINTENDENT [facility] Tissue (Falciform Ligament) 04/15/2024 12:13 PM GENERAL SUPERINTENDENT 04/15/2024 1:18 PM GENERAL SUPERINTENDENT John Fong MD LAB PATHOLOGY ORDERABLES Final Result [address] [address], [place] * [place] Central Venous Place Exchange (04/15/2024 11:40 AM GENERAL SUPERINTENDENT) Narrative Systemgenerated, Documentation - 04/15/2024 11:40 AM GENERAL SUPERINTENDENT This procedure requires no interpretation from the radiologist. John Fong MD IMG FLUOROSCOPY ORDERABLES Fin al Result * CT Abdomen Pelvis with IV Contrast (04/12/2024 11:18 AM GENERAL SUPERINTENDENT) Anatomical Region Laterality Modality Abdomen, Pelvis Computed Tomogra phy 04/12/2024 11:5 2 AM GENERAL SUPERINTENDENT Impressions 04/12/2024 12:11 PM GENERAL SUPERINTENDENT Wall thickening and slight mucosal irregularity of [...] and potentially actionable. Narrative 04/12/2024 12:11 PM GENERAL SUPERINTENDENT FULL RESULT: Examination: CT ABDOMEN PELVIS W [...] MD IMG CT ORDERABLES Final Result * TSH (04/09/2024 11:09 AM GENERAL SUPERINTENDENT) Thyroid Stimulating Hormone 1.53 0.27 - 4.20 mcunit/mL 04/09/2024 12:23 PM GENERAL SUPERINTENDENT [facility] Blood Peripheral blood specimen / Unknown Venipuncture / Unknown 04/09/2024 11:09 AM GENERAL SUPERINTENDENT 04/09/2024 11:19 AM GENERAL SUPERINTENDENT Ceci Nicholson MD LAB BLOOD ORDERABLES Final Resu lt [facility] Unless otherwise noted, all lab tests performed by: Division of Pathology and Laboratory Medicine [address] [place] [id number] * Pathology Outside Interpretation (04/02/2024) Materials Received Accession#, Stained, Block, Unstained Collected Received A. [id number], 20 SS, 0 BLOCKS, 0 USS 04/02/2024 04/22/2024 04/22/2024 5:36 PM GENERAL SUPERINTENDENT [facility] Diagnosis Outside ([id number], 20 SS, 0 BLOCKS, 0 USS, collected [...] CELL FEATURES. See comment. 04/22/2024 5:36 PM GENERAL SUPERINTENDENT [employer] [facility] at 1736 GENERAL SUPERINTENDENT Comment Part A. There is no evidence of malignancy on H&E and immunohistochemical stain for Cytokeratin AE1/AE3. Of note, the biopsy may not be enrollment representative of the entire lesion. Please correlate [...] instability (MSI-H) in the tumor is low. HER-2/shaonn immunohistochemistry: Negative (Score: 0) 04/22/2024 5:36 PM GENERAL SUPERINTENDENT [facility] Biomarker Block(s) Block for biomarker testing: C1 Normal block: N/A 04/22/2024 5:36 PM GENERAL SUPERINTENDENT [facility] Disclaimer "Some tests reported here may have been developed and performance characteristics determined by [facility]. These tests have not been specifically cleared or approved by the U.S. Food and Drug Administration. If applicable, controls were reviewed and showed appropriate reactivity." 04/22/2024 5:36 PM GENERAL SUPERINTENDENT [facility] Tissue 04/02/2024 04/22/2024 6:4 0 AM GENERAL SUPERINTENDENT us Sybil Edmonds MD LAB PATHOLOGY ORDERABLES Final R esult [address] [address], [place] * OSI CT Abdomen and Pelvis (04/01/2024 8:21 AM GENERAL SUPERINTENDENT) Only the most recent of2 resultswithin the time period is included. Narrative Systemgenerated, Documentation - 04/27/2024 8:22 AM GENERAL SUPERINTENDENT Study acquired at another institution. For comparison only. No [facility] originated interpretation requested or available. [facility] Regan Zhu DO IMG OUTSIDE IMAGE ORDERAB LES Final Result * OSI CT CHEST ABDOMEN PELVIS (03/23/2024 7:37 PM GENERAL SUPERINTENDENT) Narrative Systemgenerated, Documentation - 04/09/2024 7:37 PM GENERAL SUPERINTENDENT Study acquired at another institution. For comparison only. No [facility] originated interpretation requested or available. us Margoth Souza MD IMG OUTSIDE IMAGE ORDERABLES Fin al Result * OSI Chest (03/23/2024 7:37 PM GENERAL SUPERINTENDENT) Only the most recent of4 resultswithin the time period is included. Narrative Systemgenerated, Documentation - 04/09/2024 7:37 PM GENERAL SUPERINTENDENT Study acquired at another institution. For comparison only. No [facility] originated interpretation requested or available. us Margoth Souza MD IMG OUTSIDE IMAGE ORDERABLES Fin al Result * OSI CT Chest (03/22/2024 8:21 AM GENERAL SUPERINTENDENT) Narrative Systemgenerated, Documentation - 04/27/2024 8:21 AM GENERAL SUPERINTENDENT Study acquired at another institution. For comparison only. No [facility] originated interpretation requested or available. [facility] Regan Zhu DO IMG OUTSIDE IMAGE ORDERAB LES Final Result * (ABNORMAL) Basic Metabolic Panel- Total Calcium (01/03/2024 2:59 PM CDT) Only the most recent of7 resultswithin the time period is included. eGFR 71 >=60 mL/min/1. 73 sq. m 01/03/2024 3:44 PM CDT [facility] Comment: The eGFRcr is calculated with the [...] 10.2 mg/dL 01/03/2024 3:44 PM CDT [facility] Sodium Level 139 136 - 145 mmol/L 01/03/2024 3:44 PM CDT [facility] Potassium Level 3.9 3.4 - 4.5 mmol/L 01/03/2024 3:44 PM CDT [facility] Chloride 103 98 - 107 mmol/L 01/03/2024 3:44 PM CDT [facility] CO2 28 22 - 29 mmol/L 01/03/2024 3:44 PM CDT [facility] Anion Gap 8 4 - 14 mmol/L 01/03/2024 3:44 PM CDT [facility] Creatinine 1.18(H) 0.67 - 1.17 mg/dL 01/03/2024 3:44 PM CDT [facility] BUN 15 6 - 23 mg/dL 01/03/2024 3:44 PM CDT [facility] Glucose Level 137(H) 70 - 99 mg/dL 01/03/2024 3:44 PM CDT [facility] Comment: Effective 12/14/15, the glucose reference intervals have been updated based on [place] [employer] guidelines (Standards of Medical Care [...] APRN LAB BLOOD ORDERABLES Final Result [facility] Unless otherwise noted, all lab tests performed by: Division of Pathology and Laboratory Medicine [address] [place] [id number] * Zinc Transporter 8 Ab (01/03/2024 4:22 AM CDT) Pathologist [facility] Zinc T8 AB <15.0 <15.0 U/mL 01/15/2024 11:18 AM CDT [facility] Comment: ADDITIONAL INFORMATION This test has been modified from the computer technical specialist's instructions. Its performance characteristics were determined by [facility] in a manner consistent with CLIA requirements. This test has not been cleared or approved by the U.S. Food and Drug Administration. Test Performed by: [place] [address] Refrigerated Cargo Clerk: Mary Jane Topete Ph.D.; CLIA# [id number] Blood Peripheral blood specimen / Unknown Venipuncture / Unknown 01/03/2024 4:22 AM CDT 01/03/2024 4:55 AM CDT Alicia Mcmanus APRN LAB BLOOD ORDERABLES Final Result [facility] * Islet Antigen 2 (IA-2) Antibody (01/03/2024 4:22 AM CDT) Pathologist [facility] IA-2 Antibody 0.00 <=0.02 nmol/L 01/07/2024 12:20 AM CDT [facility] Comment: ADDITIONAL INFORMATION This test was developed and its performance characteristics determined by [facility] in a manner consistent with CLIA requirements. This test has not been cleared or approved by the U.S. Food and Drug Administration. Test Performed by: [place] [id number] Refrigerated Cargo Clerk: Mary Jane Topete Ph.D.; CLIA# [id number] Blood Peripheral blood specimen / Unknown Venipuncture / Unknown 01/03/2024 4:22 AM CDT 01/03/2024 4:55 AM CDT Alicia Mcmanus APRN [facility] BLOOD ORDERABLES Final Result Performing Organization Address [facility] de Phone Number [facility] TIFF * GREG Ab Assay (01/03/2024 4:22 AM CDT) Pathologist [facility] [id number] Ab-[place] 0.00 <=0.02 nmol/L 01/07/2024 12:01 AM CDT [facility] TIFF Comment: ADDITIONAL INFORMATION This test was developed and its performance characteristics determined by [facility] in a manner consistent with CLIA requirements. This test has not been cleared or approved by the U.S. Food and Drug Administration. Test Performed by: [facility] [place] [address] Refrigerated Cargo Clerk: Mary Jane Topete Ph.D.; CLIA# [id number] Blood Peripheral blood specimen / Unknown Venipuncture / Unknown 01/03/2024 4:22 AM CDT 01/03/2024 4:55 AM CDT Alicia Mcmanus FRANK LAB BLOOD ORDERABLES Final Result Performing Organization Address [facility] de Phone Number [facility] TIFF * Insulin Ab (01/03/2024 4:22 AM CDT) Pathologist [facility] Insulin Ab-[place] 0.00 0.00 - 0.02 nmol/L 01/06/2024 5:14 PM CDT [facility] TIFF Comment: ADDITIONAL INFORMATION This test was developed and its performance characteristics determined by [facility] in a manner consistent with CLIA requirements. This test has not been cleared or approved by the U.S. Food and Drug Administration. Test Performed by: [address] [address] Refrigerated Cargo Clerk: Mary Jane Topete Ph.D.; CLIA# [id number] Blood Peripheral blood specimen / Unknown Venipuncture / Unknown 01/03/2024 4:22 AM CDT 01/03/2024 4:55 AM CDT Alicia Mcmanus APRN LAB BLOOD ORDERABLES Final Result [place] LABORATORY BEAKER * C Peptide (01/03/2024 4:22 AM CDT) [facility] C-Peptide 2.12 1.10 - 4.40 ng/mL 01/03/2024 5:48 AM CDT [facility] Blood Peripheral blood specimen / Unknown Venipuncture / Unknown 01/03/2024 4:22 AM CDT 01/03/2024 4:55 AM CDT Alicia Mcmanus APRN LAB BLOOD ORDERABLES Final Result [facility] Unless otherwise noted, all lab tests performed by: Division of Pathology and Laboratory Medicine [address] [place] [id number] * (ABNORMAL) Hemogram (01/02/2024 7:20 PM CDT) [facility] White Blood Cell 13.8(H) 4.1 - 10.5 K/uL 01/02/2024 7:33 PM CDT [facility] Red Blood Cell 4.74 4.30 - 6.04 M/uL 01/02/2024 7:33 PM CDT [facility] Hemoglobin 12.2(L) 13.3 - 17.4 g/dL 01/02/2024 7:33 PM CDT [facility] Hematocrit 38.6(L) 39.5 - 51.8 % 01/02/2024 7:33 PM CDT [facility] Mean Cell Volume 81(L) 82 - 99 fL 01/02/2024 7:33 PM CDT [facility] Mean Cell Hemoglobin 25.7(L) 26.6 - 33.2 pg 01/02/2024 7:33 PM CDT [facility] Mean Cell Hemoglobin Concentration 31.6 31.1 - 35.2 g/dL 01/02/2024 7:33 PM CDT [facility] RDW-SD 39.1 37.5 - 49.7 fL 01/02/2024 7:33 PM CDT [facility] Red Cell Diameter Width 13.1 11.6 - 15.5 % 01/02/2024 7:33 PM CDT [facility] Platelet 291 160 - 397 K/uL 01/02/2024 7:33 PM CDT [facility] Mean Platelet Volume 9.7 9.1 - 12.6 fL 01/02/2024 7:33 PM CDT [facility] INRBC 0.0 0.0 - 0.1 /100 WBC 01/02/2024 7:33 PM CDT [facility] Comment: The INRBC (instrument NRBC) [...] LAB BLOOD ORDERABLES Final R esult [facility] Unless otherwise noted, all lab tests performed by: Division of Pathology and Laboratory Medicine [address] [place] [phone] * (ABNORMAL) Beta Hydroxy Quant (01/02/2024 7:20 PM CDT) Only the most recent of2 resultswithin the time period is included. Beta-Hydroxybuty rate 0.85(H) 0.02 - 0.27 mmol/L 01/02/2024 8:01 PM CDT [facility] Is patient fasting? No 01/02/2024 8:01 PM CDT [facility] Comment:A fasting specimen i s recommended and results obtained from non-fasting specimens should be interpreted with caution using reference ranges based on fasting status and in conjunction with clinical context. Blood Peripheral blood specimen / Unknown Venipuncture / Unknown 01/02/2024 7:20 PM CDT 01/02/2024 7:24 PM CDT Narrative [facility] - 01/02/2024 8:01 PM CDT Reference range based on fasting. us Alicia Mcmanus APRN LAB BLOOD ORDERABLES Final Result [facility] Unless otherwise noted, all lab tests performed by: Division of Pathology and Laboratory Medicine [address] [place] [phone] * (ABNORMAL) ABG+ (ABG, Na, K, Cl, Glu, Hgb, Hct, Lactate, Ion Ca) (01/02/2024 10:38 AM CDT) Only the most recent of2 resultswithin the time period is included. Sodium Arterial 140 136 - 146 mmol/L 01/02/2024 10:44 AM CDT [facility] Potassium Arterial 3.7 3.4 - 4.5 mmol/L 01/02/2024 10:44 AM CDT [facility] Chloride Arterial 103 98 - 106 mmol/L 01/02/2024 10:44 AM CDT [facility] Glucose Arterial 270(H) 70 - 105 mg/dL 01/02/2024 10:44 AM CDT [facility] Hgb Art 12.9(L) 13.5 - 17.5 g/dL 01/02/2024 10:44 AM CDT [facility] Hematocrit Arterial 40(L) 42 - 52 % 01/02/2024 10:44 AM CDT [facility] Lactate Arterial 1.0(H) 0.4 - 0.8 mmol/L 01/02/2024 10:44 AM CDT [facility] Calcium Ionized Arterial 1.14(L) 1.15 - 1.29 mmol/L 01/02/2024 10:44 AM T [facility] pH Arterial 7.35 7.35 - 7.45 01/02/2024 10:44 AM T [facility] P CO2 Arterial 42.9 35.0 - 48.0 mmHg 01/02/2024 10:44 AM CDT [facility] P O2 Arterial 164(H) 83 - 108 mmHg 01/02/2024 10:44 AM T [facility] Bicarbonate Arterial 24 21 - 28 mmol/L 01/02/2024 10:44 AM T [facility] WB Anion Gap 13 7 - 16 mmol/L 01/02/2024 10:44 AM T [facility] Base Excess Arterial -2 -2 - 3 mmol/L 01/02/2024 10:44 AM T [facility] Oxygen Saturation Arterial 99 95 - 99 % 01/02/2024 10:44 AM T [facility] Oxygen FLOW Rate/ FiO2 01/02/2024 10:44 AM T [facility] O2 Therapy 01/02/2024 10:44 AM [facility] Art Kirill Test Not Applicable (Arterial Line Draw) 01/02/2024 10:44 AM [facility] Blood Arterial blood specimen / Unknown Arterial Line / Unknown 01/02/2024 10:38 AM CDT 01/02/2024 10:41 AM CDT Narrative [facility] - 01/02/2024 10:44 AM CD The ABL90 Flex Plus analyzer is an [...] MD LAB BLOOD ORDERABLES Final Re sult [facility] Unless otherwise noted, all lab tests performed by: Division of Pathology and Laboratory Medicine [address] [place] [phone] * Intraoperative Ultrasound - For Image Storage [...] unexpected and potentially actionable. Margoth Souza MD [facility] ORDERABLES Final Result after 12/27/2023 Insurance MEDICARE PART A AND B MEDICARE PART A AND B Advance Directives * Full Code (Latest Code Status on File) Date Activated Date Inactivated Comments 10/29/2024 4:15 PM Update based o n Advanced Directive Documentation * Full Code Date Activated Date Inactivated Comments 10/28/2024 6:02 PM 10/29/2024 3:00 PM * Full Code Date Activated Date Inactivated Comments 10/28/2024 2:09 PM 10/28/2024 6:02 PM Update based on Advanced Directive Documentation * Full Code Date Activated Date Inactivated Comments 10/25/2024 8:02 AM 10/28/2024 2:08 PM Update based on Advanced Directive Documentation * Full Code Date Activated Date Inactivated Comments 10/02/2024 12:32 PM 10/25/2024 8:00 AM Update based on Advanced Directive Documentation Care Teams Combination Operator Relationship Specialty Start Date End Date Margoth Souza MD [address] [place] [phone] [email or web address] PCP - General Urology 07/30/23 04/14/24 Eagle Zhu DO [address] [place] [id number] [email or web address] PCP - External Primary Care Provider Family Practice 04/08/24 Marianela Hutchinson MD [address] [place] [phone] [email or web address] PCP - General Gastrointestinal Medical Oncology 05/04/24 Mary Jane Cassidy MD [address] [place] [phone] [email or web address] Consulting Physician Endocrinology 12/09/23 Barry He MD [address] [place] [phone] [email or web address] Consulting Physician Internal Medicine 12/23/23 Patience Hunt MD [address] [place] [phone] [email or web address] Consulting Physician Endocrinology 12/31/23 Marianela Hutchinson MD [address] [place] [phone] [email or web address] Consulting Physician Gastrointestinal Medical Oncology 04/13/24 Margoth Souza MD [address] [place] [phone] [email or web address] Consulting Physician Urology 04/15/24 Ceci Nicholson MD [address] [place] [phone] [email or web address] Consulting Physician Internal Medicine 04/09/24 Sigifredo Davenport MD [address] [place] [phone] [email or web address] Consulting Physician Internal Medicine 06/29/24 Abilio Ng PA-C [address] [place] [phone] Physician Substance Abuse Therapist Interventional Radiology 10/02/23 Shira Segovia MD [address] [place] [phone] [email or web address] Consulting Physician Internal Medicine 10/30/24
--- NOTE | 2024-12-26 22:06 | EDPHYS ---
Physician Documentation [facility] Name: Zeke Mackay Age: 59 yrs Sex: Male : 1965 Arrival Date: 12/26/2024 Time: 20:56 Bed DX3 Private MD: ED Physician Yamil Woodson HPI: 12/26 22:01 This 59 yrs old Male presents to ER via Ambulatory with complaints of Nausea, Abdominal kb Pain. 22:01 Pt is a 59 year old male with a history of stomach cancer who presents for nausea. kb States he ate too much and that normally causes his nausea. Denies abd pain, vomiting, diarrhea. States he just needs something for the nausea. . 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 - Infectious Disease History:: Denies. - Social history:: Smoking status: Patient denies any tobacco usage or history of. ROS: 22:01 Constitutional: As per HPI kb Exam: 22:01 Constitutional: This is a well developed, well nourished patient who is awake, alert, kb and in no acute distress. Head/Face: Normocephalic, atraumatic. ENT: Moist Mucous membranes Cardiovascular: Regular rate Respiratory: Respirations even and unlabored. No increased work of breathing. Talking in full sentences Abdomen/GI: Soft, non-tender. No distention Skin: Warm, dry with normal turgor. Normal color. MS/ Extremity: Pulses equal, no cyanosis. Neurovascular intact. Full, normal range of motion. Neuro: Awake and alert, GCS 15, oriented to person, place, time, and situation. Vital Signs: 21:01 BP 182 / 89; Pulse 75; Resp 18; Temp 98.2; Pulse Ox 98% ; Weight 77.11 kg; Height 6 ft. me1 2 in. ; Pain 0/10; 22:03 BP 133 / 66; Pulse 72; Resp 16; Pulse Ox 96% on R/A; jb4 21:01 Body Mass Index 21.83 (77.11 kg, 187.96 cm) me1 21:01 Pain Scale: Adult me1 MDM: 21:04 Medical Screening Exam initiated kb 22:03 Differential diagnosis: Nonspecific abd pain, gastritis, viral gastroenteritis, gerd. kb Data reviewed: vital signs, nurses notes. Test considered but Not performed: Labs: cbc, cmp considered but pt has no abd pain/tenderness, has had no vomiting or diarrhea. CT: ct abd considered but pt has no abd pain/tenderness, afebrile. Counseling: I had a detailed discussion with the patient and/or guardian regarding the historical points, exam findings, and any diagnostic results supporting the discharge/admit diagnosis, the need for outpatient follow up, a family practitioner, to return to the emergency department if symptoms worsen or persist or if there are any questions or concerns that arise at home. ED course: Pt feeling better after treatment and is ready to go home. Tolerating po intake. Administered Medications: 21:18 Drug: Ondansetron Oral Disintegrating Tablet Oral Disintegrating Tablet 4 mg PO once jb4 Route: PO; 22:15 Follow up: Response: No adverse reaction; Marked relief of symptoms jb4 21:18 Drug: Promethazine IM 25 mg IM once Route: IM; Site: right gluteus; jb4 22:15 Follow up: Response: No adverse reaction; Marked relief of symptoms jb4 Disposition: 12/27 02:12 I was immediately available on-site in the Emergency Department for consultation in the ms3 care of the patient. Disposition Summary: 12/26/24 22:05 Discharge Ordered Notes: Location: Home kb Condition: Stable kb Diagnosis - Nausea kb Followup: kb - With: Emergency Department - When: As needed - Reason: Worsening of condition Followup: kb - With: Private Physician - When: 2 - 3 days - Reason: Recheck today's complaints, Continuance of care, Re-evaluation by your physician Discharge Instructions: - Discharge Summary Sheet kb - Nausea, Adult, [id number] kb Forms: - Medication Reconciliation Form kb - Antibiotic Education kb - Prescription Opioid Use kb - Patient Portal Instructions kb - Leadership Thank You Letter kb Signatures: Nicci Sanchez, RIDDHI-Adams HANNON-Venkata Tipton RN RN jb4 Yamil Woodson DO DO ms3 Sonia Jones, RN RN me1
--- NOTE | 2024-12-26 22:06 | ER ---
Nurse's Notes [facility] Name: Zeke Mackay Age: 59 yrs Sex: Male : 1965 Arrival Date: 12/26/2024 Time: 20:56 Bed DX3 Private MD: Diagnosis: Nausea Presentation: 12/26 21:01 Chief complaint: Patient states: currently has stomach cancer that he was getting me1 treatment for but had to stop to tend have surgery on his foot. States he thinks he ate too much tonight and his home medications for nausea aren't working. Coronavirus screen: At this time, the client does not indicate any symptoms associated with coronavirus-19. Ebola Screen: No symptoms or risks identified at this time. Initial Sepsis Screen: Does the patient meet any 2 criteria? No. Patient's initial sepsis screen is negative. Does the patient have a suspected source of infection? No. Patient's initial sepsis screen is negative. Risk Assessment: Do you want to hurt yourself or someone else? Patient reports no desire to harm self or others. Onset of symptoms was December 26, 2024 at 20:00. 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 - Infectious Disease History:: Denies. - Social history:: Smoking status: Patient denies any tobacco usage or history of. Screenin:15 [facility] ED Fall Risk Assessment (Adult) History of falling in the last 3 months, jb4 including since admission No falls in past 3 months (0 pts) Confusion or Disorientation No (0 pts) Intoxicated or Sedated No (0 pts) Impaired Gait Yes (1 pt) Mobility Assist Device Used No (0 pt) Altered Elimination No (0 pt) Score/Fall Risk Level 0 - 2 = Low Risk Oriented to surroundings, Maintained a safe environment. Abuse screen: Denies threats or abuse. Nutritional screening: No deficits noted. Tuberculosis screening: No symptoms or risk factors identified. Assessment: 21:15 General: Appears in no apparent distress. uncomfortable, Behavior is calm, cooperative, jb4 appropriate for age. Pain: Denies pain. Neuro: Level of Consciousness is awake, alert, obeys commands, Oriented to person, place, time, situation. Cardiovascular: Patient's skin is warm and dry. Respiratory: Airway is patent Respiratory effort is even, unlabored, Respiratory pattern is regular, symmetrical. GI: Abdomen is flat, non-distended, Reports nausea. Derm: Skin is intact, Skin is pink, warm \T\ dry. surgical site noted to right foot. bandaged by patient. Musculoskeletal: Circulation, motion, and sensation intact. Range of motion: intact in all extremities. 22:03 Reassessment: Patient appears in no apparent distress at this time. Patient and/or jb4 family updated on plan of care and expected duration. Pain level reassessed. Patient is alert, oriented x 3, equal unlabored respirations, skin warm/dry/pink. Patient states feeling better. Vital Signs: 21:01 BP 182 / 89; Pulse 75; Resp 18; Temp 98.2; Pulse Ox 98% ; Weight 77.11 kg; Height 6 ft. me1 2 in. ; Pain 0/10; 22:03 BP 133 / 66; Pulse 72; Resp 16; Pulse Ox 96% on R/A; jb4 21:01 Body Mass Index 21.83 (77.11 kg, 187.96 cm) me1 21:01 Pain Scale: Adult oh1 ED Course: 20:58 Patient arrived in ED. im 20:59 Nicci Sanchez FNP-C is PHCP. kb 20:59 Yamil Woodson DO is Attending Physician. kb 21:05 Triage completed. me1 21:05 Arm band placed on Patient placed in an exam room. me1 21:15 Patient has correct armband on for positive identification. Call light in reach. Side jb4 rails up X 1. Provided Education on: plan of care. 21:15 No provider procedures requiring assistance completed. Patient did not have IV access jb4 during this emergency room visit. Administered Medications: 21:18 Drug: Ondansetron Oral Disintegrating Tablet Oral Disintegrating Tablet 4 mg PO once jb4 Route: PO; 22:15 Follow up: Response: No adverse reaction; Marked relief of symptoms jb4 21:18 Drug: Promethazine IM 25 mg IM once Route: IM; Site: right gluteus; jb4 22:15 Follow up: Response: No adverse reaction; Marked relief of symptoms jb4 Medication: 21:15 VIS not applicable for this client. jb4 Outcome: 22:05 Discharge ordered by MD. mclean 22:15 Discharged to home ambulatory, jb4 22:15 Condition: stable 22:15 Discharge instructions given to patient, Instructed on discharge instructions, follow up and referral plans. Demonstrated understanding of instructions, follow-up care, 22:15 Patient left the ED. jb4 Signatures: Nicci Sanchez, RIDDHI-C [employer]-Venkata Tipton, RN RN jb4 Gauri Perez Michelle RN RN me1
[2024-12-26 23:07] VITALS: TEMP 98.2
[2024-12-26 23:08] VITALS: BP 133/66; O2SAT 96
== END 2024-12-26 22:15 | disposition home or self-care (01) ==
LOC: ER 20:56
DX: R11.0 Nausea (principal); Z85.028 Personal history of other malignant neoplasm of stomach
CPT/HCPCS: 96372; 99284; J2550; Q0162

== ENCOUNTER 2025-01-07 09:01 | Emergency (ER) | payer OTHER, BC ==
--- OUTSIDE RECORDS SUMMARY | 2025-01-07 09:10 | XMS REPORT | Clinical Summary ---
Author Name Unknown Organization [facility] [place] Address [address] [place] [address] Care Team Providers Care Finisher Tailor Apprentice Name Role Phone Margoth Souza MD Primary Care Provider [phone] Mary Jane Cassidy MD Unavailable [phone] Barry He MD Unavailable Patience Hunt MD Unavailable Eagle Zhu DO Unavailable [phone] Marianela Hutchinson MD Unavailable [phone] Margoth Souza MD Unavailable Ceci Nicholson MD Unavailable [phone] Marianela Hutchinson MD Primary Care Provider [phone] Sigifredo [place] MD Unavailable Abilio Ng-C Unavailable [phone] Shira Segovia MD Unavailable Ancelmo Love MD Unavailable [phone] Allergies Active Allergy Reactions Criticality Noted Date [...] for nausea or vomiting. 30 tablet 2 Active promethazine (PHENERGAN) 25 mg tabletIndication s:Adenocarcinoma of stomach Take 1 tablet (25 mg) by mouth every 6 (six) hours as needed for nausea or vomiting. 60 tablet 2 Active loperamide (Imodium A-D) 1 mg/7.5 mL [...] times a day with meals. 2024 Discontinued polyethylene glycol (GLYCOLAX) 17 gram/dose powderIndication [...] 20 tablet 01/03/20 24 1:52 PM CDT 2023 Discontinued(S top Taking at Discharge) prochlorperazine [...] Tylenol). 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); Endocrine/metabolic screening 12/18/2024 11:00 AM CDT Follow-Up Internal Medicine Center [address] [place] [address], 9th [place] [address] Shira Segovia MD Adenocarcinoma of stomach (Primary Dx); Hypertension; 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 mellitus; Paroxysmal atrial fibrillation 12/18/2024 Travel 12/15/2024 Orders Only [facility] [address] [place] [address], 7th [place] [address] Gillian Gomez PA-C Adenocarcinoma of stomach (Primary Dx) 12/01/2024 Orders Only [facility] [address] [place] [address], 7th [place] [address] Gillian Gomez PA-C Adenocarcinoma of stomach (Primary Dx) 11/13/2024 1:15 PM CDT - 11/13/2024 11:59 PM CDT Hospital Encounter Diagnostic Laboratory Center [address] [place] [address] Gillian Gomez PA-C Adenocarcinoma of stomach; Hyperkalemia; Hyponatremia Discharge Disposition: Home 11/13/2024 1:00 PM CDT Ancillary Procedure X-Ray Outpatient Center [facility], 7th [place] [address] Shira Segovia MD 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 mellitus 11/05/2024 Orders Only [facility] [address] [place] [address], 7th [place] [address] Radha Castellon, [facility] 11/04/2024 Orders Only [facility] [address] [place] [address], 7th [place] [address] Gillian Gomez PA-C 11/04/2024 Telephone [facility] [address] [place] [address], 7th [place] [address] Gabrielle Arias RN 11/02/2024 Orders Only [facility] [address] [place] [address], 7th [place] [address] Radha Castellon Werner 11/01/2024 6:00 PM CDT - 11/01/2024 11:59 PM CDT Hospital Encounter Ambulatory Treatment Center - Main Building [address] [place] [address], 2nd Floor, [place] [address] Gillian Gomez PA-C Balason, Adda Rica F, RN Adenocarcinoma of stomach (Primary Dx) Discharge Disposition: Home 10/30/2024 2:00 PM CDT Infusion Ambulatory Treatment Center - [facility] [address] [facility], 8th [place] [address] Gillian Gmoez PA-C Baidon, Mario B RN Adenocarcinoma of stomach (Primary Dx); Iron deficiency anemia, not otherwise specified 10/30/2024 1:00 PM CDT Consult Internal Medicine Center [address] [place] [address], 9th [place] [address] Shira Segovia MD Hypertension (Primary Dx); Hypertensive [...] PM CDT Hospital Encounter Diagnostic Laboratory Center [address] [place] [address] Marianela Hutchinson MD Adenocarcinoma of stomach Discharge Disposition: Home 10/30/2024 Orders Only [facility] [address] [place] [address], 7th [place] [address] Marianela Hutchinson MD 10/30/2024 Travel 10/30/2024 Telephone Internal Medicine Center [address] [place] [address], 9th [place] [address] Shira Segovia MD 10/30/2024 Orders Only [facility] [address] [place] [address], 7th [place] [address] Gillian Gomez PA-C Iron deficiency anemia, not otherwise specified (Primary Dx); Adenocarcinoma of stomach 10/29/2024 Orders Only [facility] [address] [place] [address], 7th [place] [address] Gillian Gomez PA-C Adenocarcinoma of stomach (Primary Dx) 10/29/2024 Telephone Case Management [address] [place], [place] [phone] Yani Salamanca 10/28/2024 2:18 PM CDT - 10/29/2024 1:00 PM CDT Hospital Encounter Acute Cancer Care Center [address] [place] [address], 1st [place] [address] Otf Glaser MD Gandhi, Ayush, MD Sandoval, Marcelo A., MD Hypertensive crisis (Primary Dx); Hyperkalemia; Intractable nausea and vomiting; Renal cell carcinoma <Left side>; Type 2 diabetes mellitus with hyperglycemia; Atherosclerosis of coronary 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 Discharge Disposition: Home 10/28/2024 10:54 AM CDT - 10/28/2024 2:17 PM CDT Hospital Encounter Diagnostic Laboratory Center [address] [place] [address] Marianela Hutchinson MD Adenocarcinoma of stomach Discharge Disposition: Home 10/28/2024 10:45 AM CDT Infusion Ambulatory Treatment [facility] - Blue [address] [place] [address], 8th [place] [address] Marianela Hutchinson MD Moreno Escobar, Cristian, ARTURO Adenocarcinoma of stomach 10/28/2024 9:45 AM CDT - 10/28/2024 10:53 AM CDT Hospital Encounter [facility], 6th [place] [address] Marianela Hutchinson MD Discharge Disposition: Home 10/28/2024 Travel 10/28/2024 Orders Only [facility] [address] [place] [address] Main dg, 7th [place] [address] Max Ottoyeyolis Estrada [facility] 10/27/2024 Orders Only Gastrointestinal Center [address] [place] [address] Main [facility], 7th [place] [address] Marianela Hutchinson MD 10/27/2024 Orders Only [facility] [address] [place] [address] Main [facility], 7th [place] [address] Gillian Gomez PA-C Adenocarcinoma of stomach (Primary Dx) 10/27/2024 Telephone Gastrointestinal Center [address] [facility] Main dg, 7th [place] [address] Gabrielle Arias RN 10/26/2024 12:20 PM CDT Follow-Up Gastrointestinal [facility] [address] [place] [address] Main [facility], 7th [place] [address] Marianela Hutchinson MD Adenocarcinoma of stomach (Primary Dx) 10/26/2024 Orders Only Colorectal Center - Medical Oncology [facility]5 [facility] Main dg, 7th [place] [address] David Alejandre MD 10/26/2024 Travel 10/25/2024 8:03 AM CDT - 10/25/2024 5:51 PM CDT Emergency Acute Cancer Care Center [facility]5 [facility] Main dg, 1st [place] [address] Mohan Torres MD Nausea (Primary Dx); Hypertension; Gastro-esophageal reflux disease without esophagitis; Adenocarcinoma of stomach; Renal mass; Paroxysmal atrial fibrillation Discharge Disposition: Home 10/25/2024 7:00 AM CDT - 10/25/2024 7:19 AM CDT Hospital Encounter Diagnostic Laboratory Center [address] [place] [address] Marianela Hutchinson MD Adenocarcinoma of stomach Discharge Disposition: Home 10/07/2024 4:30 PM CDT Infusion Ambulatory Treatment [place] - [place] [address] [facility], 8th Floor Elevator [address] [place] [phone] Marianela Hutchinson MD Gumban, Connie Y, RN Adenocarcinoma of stomach (Primary Dx) 10/07/2024 Travel 10/05/2024 1:45 PM CDT Infusion Ambulatory Treatment [place] - [address], 8th Floor [facility] [place] [address] Marianela Hutchinson MD Olipas, Donnamarie G RN Adenocarcinoma of stomach (Primary Dx); Iron deficiency anemia, not otherwise specified 10/05/2024 10:48 AM CDT - 10/05/2024 11:59 PM CDT Hospital Encounter Diagnostic Laboratory Center [address] [place] [address] Marianela Hutchinson MD Adenocarcinoma of stomach Discharge Disposition: Home 10/05/2024 Travel 10/02/2024 [facility] Only Gastrointestinal Center [address] [place] [address], 7th Floor [address] [phone] Gillian Gomez PA-C 09/25/2024 Telephone [facility] [place] [facility] [address] [place], [place] [phone] Jane Sanchez, chain maker loom control Call 09/23/2024 8:56 PM CDT - 09/23/2024 11:34 PM CDT Emergency Acute Cancer Care Center [address] [place] [address], 1st Floor near The [place] [phone] Otf Glaser MD Encounter for adjustment and management of vascular access device (Primary Dx); Hypertension Discharge Disposition: Home 09/23/2024 6:50 PM CDT Infusion Ambulatory Treatment [place] - [place] [address] [place] [address], [address] [place] [address] Marianela Hutchinson MD Rocafort, Roy G, RN Adenocarcinoma of stomach (Primary Dx) 09/21/2024 4:30 PM CDT Infusion Ambulatory Treatment [address], [address] [place] [address] Marianela Hutchinson MD Joseph, Divya, RN Adenocarcinoma of stomach (Primary Dx); Iron deficiency anemia, not otherwise specified 09/21/2024 2:20 PM CDT Follow-Up [facility] [address] [place] [address] Marianela Hutchinson MD Adenocarcinoma of stomach 09/21/2024 12:48 PM CDT - 09/21/2024 11:59 PM CDT Hospital Encounter Diagnostic Laboratory Center [address] [place] [address] Marianela Hutchinson MD Adenocarcinoma of stomach Discharge Disposition: Home 09/21/2024 Orders Only [facility] [address] [place] [address], [address] [place] [address] Marianela Hutchinson MD Adenocarcinoma of stomach (Primary Dx) 09/21/2024 Orders Only G[facility] Center [address] [place] [address] Radha Castellon [facility] Adenocarcinoma of stomach (Primary Dx); Diarrhea 09/21/2024 Travel 09/21/2024 Orders Only Ambulatory Treatment [address], [address] [place] [address] Marianela Hutchinson MD Adenocarcinoma of stomach (Primary Dx) 09/09/2024 6:30 PM CDT Infusion [facility] Treatment [address], [address] [place] [address] Marianela Hutchinson MD Balason, Adda Rica F, RN Adenocarcinoma of stomach (Primary Dx) 09/09/2024 Travel 09/07/2024 4:30 PM CDT Infusion Ambulatory Treatment Center - [place] [address] [facility], 8th [place] [address] Marianela Hutchinson MD Castillo, Emmanuel, RN Adenocarcinoma of stomach (Primary Dx); Iron deficiency anemia, not otherwise specified 09/07/2024 1:00 PM CDT Follow-Up [facility] [address] [place] [address], 7th [place] [address] Marianela Hutchinson MD Adenocarcinoma of stomach (Primary Dx) 09/07/2024 10:41 AM CDT - 09/07/2024 11:59 PM CDT Hospital Encounter Diagnostic Laboratory Center [address] [place], [place] [phone] Marianela Hutchinson MD Adenocarcinoma of stomach Discharge Disposition: Home 09/07/2024 Orders Only [facility] Center [address] [place] [address], 7th [place] [address] Marianela Hutchinson MD Adenocarcinoma of stomach (Primary Dx) 09/07/2024 Orders Only [facility] [address] [place] [address], 7th [place] [address] Radha Castellon, [facility] Adenocarcinoma of stomach (Primary Dx); Iron deficiency anemia, not otherwise specified 09/07/2024 Travel 08/26/2024 7:41 PM CDT - 08/26/2024 11:59 PM CDT Hospital Encounter Ambulatory Treatment [place] - [address], 2nd Floor, [place] [address] Marianela Hutchinson MD Le, Lam, RN Adenocarcinoma of stomach (Primary Dx) Discharge Disposition: Home 08/24/2024 1:40 PM CDT Follow-Up [facility] [address] [place] [address], 7th [place] [address] Marianela Hutchinson MD Adenocarcinoma of stomach 08/24/2024 12:42 PM CDT - 08/24/2024 11:59 PM CDT Hospital Encounter Ambulatory Treatment Center - Main Building [address] [place] [address] Main [facility], 2nd Floor, [place] [address] Gillian Gomez PA-C Harrison, Kishanda S, RN Adenocarcinoma of stomach (Primary Dx) Discharge Disposition: Home 08/24/2024 11:16 AM CDT - 08/24/2024 12:41 PM T Hospital Encounter Diagnostic Laboratory Center [address] [place] [address] Gillian Gomez PA-C Adenocarcinoma of stomach Discharge Disposition: Home 08/24/2024 Orders Only [facility] [address] [place] [address] Main [facility], 7th [place] [address] Marianela Hutchinson MD Adenocarcinoma of stomach (Primary Dx) 08/24/2024 Telephone [facility] [address] [place] [address] Main [facility], 7th [place] [address] Mony Saavedra RN 08/24/2024 Orders Only [facility] [address] [place] [address], 7th [place] [address] Radha Castellon Werner Adenocarcinoma of stomach (Primary Dx) 08/24/2024 Travel 08/24/2024 Orders Only Ambulatory Treatment Center - Main Building [address] [place] [address], 2nd Floor, [place] [address] Marianela Hutchinson MD Adenocarcinoma of stomach (Primary Dx) 08/21/2024 Telephone [facility] [address] [place] [address], 7th [place] [address] Milagros Rogers RN 08/17/2024 Orders Only [facility] [address] [place] [address], 7th [place] [address] Gillian Gomez PA-C Adenocarcinoma of stomach (Primary Dx) 08/06/2024 Orders Only [facility] [address] [place] [address], 7th [place] [address] Radha Castellon RPH 07/22/2024 Orders Only Ambulatory Treatment Center - [facility] [address] [facility], 8th [place] [address] Marianela Hutchinson MD Adenocarcinoma of stomach (Primary Dx) 07/21/2024 Telephone Ambulatory Treatment Center - [place] [address] [facility], 8th [place] [address] Rosanna Álvarez, RN Chemotherapy Teaching 07/16/2024 2:40 PM AMUSEMENT MACHINE MECHANIC Follow-Up [facility] [address] [place] [address], 7th [place] [address] Marianela Hutchinson MD Adenocarcinoma of stomach (Primary Dx) 07/16/2024 Orders Only [facility] [address] [place] [address], 7th [place] [address] Marianela Hutchinson MD Adenocarcinoma of stomach (Primary Dx) 07/16/2024 Orders Only [facility] [address] [place] [address], 7th [place] [address] Radha Castellon, [facility] Adenocarcinoma of stomach (Primary Dx) 07/16/2024 Travel 07/15/2024 10:08 AM AMUSEMENT MACHINE MECHANIC - 07/15/2024 11:59 PM AMUSEMENT MACHINE MECHANIC Hospital Encounter CT Imaging and Diagnostic Imaging [facility]5 [facility], 3rd [place] [address] Mary Kay Santamaria APRN Adenocarcinoma of stomach Discharge Disposition: Home 07/15/2024 9:49 AM AMUSEMENT MACHINE MECHANIC - 07/15/2024 10:07 AM AMUSEMENT MACHINE MECHANIC Hospital Encounter Diagnostic Laboratory Center [address] [place] [address] [place] [address] Mary Kay Santamaria APRN Adenocarcinoma of stomach Discharge Disposition: Home 07/07/2024 Orders Only [facility] [address] [place] [address], 7th [place] [address] Gillian Gomez PA-C Adenocarcinoma of stomach (Primary Dx) 07/06/2024 Telephone [facility] - Surgical Oncology [address] Main Bldg, 7th [place] [address] Mary Kay Santamaria, FORESTRY AID TECHNICIAN 07/06/2024 Orders Only [facility] - Surgical Oncology [facility] Main Bldg, 7th [place] [address] Mary Kay Santamaria, FORESTRY AID TECHNICIAN 07/06/2024 Orders Only [facility] [address] [place] [address] Main dg, 7th [place] [address] Gillian Gomez PA-C Adenocarcinoma of stomach (Primary Dx) 07/06/2024 Multidisciplinary Visit [facility] [address] [place] [address] Main [facility], 7th Floor Elevator [address] [place] [phone] Gillian Gomez PA-C 07/06/2024 Orders Only [facility] [address] [place] [address] Main [facility], 7th Floor Elevator [address] [place] [phone] Donnell Van Adenocarcinoma of stomach (Primary Dx) 07/02/2024 11:00 AM AMUSEMENT MACHINE MECHANIC Nutrition Clinical Nutrition For your Nutrition appointment location directions please call: Marianela Hutchinson MD Munder, Kathryn, SCOTT Left without seen 07/02/2024 10:30 AM AMUSEMENT MACHINE MECHANIC Follow-Up [facility] - Surgical Oncology [address] [place] [address] Main [facility], 7th [place] [address] John Fong MD Adenocarcinoma of stomach 07/02/2024 Documentation [facility] - Surgical Oncology [address] [place] [address] Main Bldg, 7th [place] [address] John Fong MD 06/30/2024 3:33 PM AMUSEMENT MACHINE MECHANIC Anesthesia Event Perioperative Evaluation and Management Center [address] [place] [address] Main [facility], 6th Floor Elevator [address] [place] [phone] Lien Antonio, RN 06/30/2024 12:25 PM AMUSEMENT MACHINE MECHANIC Anesthesia Event Endoscopy Center [address] [place] [address] Main [facility], 5th Floor [address] [place] [phone] Susana Kelly MD 06/30/2024 12:00 PM AMUSEMENT MACHINE MECHANIC - 06/30/2024 12:45 PM AMUSEMENT MACHINE MECHANIC Surgery Endoscopy Center [address] [place] [address] Main [facility], 5th [place] [address] Brandon Alcala MD DIAGNOSTIC UPPER GASTROINTESTINAL ENDOSCOPY 06/30/2024 10:15 AM AMUSEMENT MACHINE MECHANIC - 06/30/2024 2:24 PM AMUSEMENT MACHINE MECHANIC Hospital Encounter Endoscopy Center [address] [place] [address] Main [facility], 5th [place] [address] Brandon Alcala MD Adenocarcinoma of stomach Discharge Disposition: Home 06/30/2024 Travel 06/29/2024 9:00 AM AMUSEMENT MACHINE MECHANIC Consult Perioperative Evaluation and Management [address] [place] [address], 6th [place] [address] Mary Kay Santamaria APRN Vu, Khanh D, MD Encounter for preprocedural cardiovascular examination (Primary Dx); Coronary arteriosclerosis, not otherwise specified; Cardiomyopathy, not otherwise specified; Hypertension; 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; Type 2 diabetes mellitus with hyperglycemia; Dyslipidemia; Hyponatremia; Hyperkalemia; Adenocarcinoma of stomach; Paroxysmal atrial fibrillation; Hyperlipidemia, not otherwise specified 06/29/2024 8:00 AM AMUSEMENT MACHINE MECHANIC POEM Appointments Perioperative Evaluation and Management Center [address] [place] [address], 6th [place] [address] Marianela Hutchinson MD 06/29/2024 7:30 AM AMUSEMENT MACHINE MECHANIC - 06/29/2024 11:59 PM AMUSEMENT MACHINE MECHANIC Hospital Encounter [facility] - [facility] [address] [place] [address] Main [facility], 2nd [place] [address] Mary Kay Santamaria APRN Adenocarcinoma of stomach Discharge Disposition: Home 06/29/2024 Travel 06/23/2024 Documentation [facility] [address] [place] [address], 7th [place] [address] Mony Saavedra RN 06/22/2024 12:20 PM AMUSEMENT MACHINE MECHANIC Follow-Up [facility] [address] [place] [address], 7th [place] [address] Marianela Hutchinson MD Adenocarcinoma, NOS of stomach, NOS 06/22/2024 Orders Only [facility] [address] [place] [address], 7th [place] [address] Radha Castellon, [facility] 06/22/2024 Travel 06/20/2024 10:45 AM AMUSEMENT MACHINE MECHANIC - 06/20/2024 11:59 PM AMUSEMENT MACHINE MECHANIC Hospital Encounter Diagnostic Imaging Center [address] [place] [address], 3rd [place] [address] Adenocarcinoma, NOS of stomach, NOS; Malignant neoplasm of overlapping sites of esophagus Discharge Disposition: Home 06/20/2024 10:08 AM AMUSEMENT MACHINE MECHANIC - 06/20/2024 10:44 AM AMUSEMENT MACHINE MECHANIC Hospital Encounter Diagnostic Laboratory Center [address] [place] [address] Gillian Gomez PA-C Adenocarcinoma, NOS of stomach, NOS Discharge Disposition: Home 06/16/2024 [facility] - Surgical Oncology [address] [place] [address], 7th [place] [address] Mary Kay Santamaria, FORESTRY AID TECHNICIAN 06/15/2024 1:30 PM AMUSEMENT MACHINE MECHANIC Infusion Ambulatory Treatment [facility] - [facility] [address] [facility], 8th [place] [address] Marianela Hutchinson MD [facility], Violajefferson Tyson RN Adenocarcinoma of stomach (Primary Dx); Iron deficiency anemia, not otherwise specified 06/15/2024 12:40 PM AMUSEMENT MACHINE MECHANIC Follow-Up [facility] [address] [place] [address], 7th [place] [address] Marianela Hutchinson MD Adenocarcinoma, NOS of stomach, NOS; Malignant neoplasm of overlapping sites of esophagus 06/15/2024 10:24 AM AMUSEMENT MACHINE MECHANIC - 06/15/2024 11:59 PM AMUSEMENT MACHINE MECHANIC Hospital Encounter Diagnostic Laboratory Center [address] [place] [address] Marianela Hutchinson MD Adenocarcinoma of stomach; Adenocarcinoma, NOS of stomach, NOS Discharge Disposition: Home 06/15/2024 Orders Only [facility] [address] [facility] Main [address]ldg, 7th [place] [address] Radha Castellon, [facility] Adenocarcinoma of stomach (Primary Dx) 06/15/2024 Orders Only [facility] [address] Main Bldg, 7th [place] [address] Gillain Gomez PA-C 06/15/2024 Travel 06/15/2024 Telephone [facility] - Gastroenterology , Hepatology & Nutrition [address] Main Bldg, 7th [place] [address] Arnaldo Araujo PA-C 06/15/2024 Multidisciplinary Visit [facility] [address] Main Bldg, 7th [place] [address] Lakeshia Pablo PA 06/15/2024 Orders Only [facility]astrointestinal Center [facility] Main [facility]g, 7th [place] [address] Marianela Hutchinson MD Adenocarcinoma of stomach (Primary Dx) 06/12/2024 Prep for [facility]ology [facility] Hepatology & Nutrition [address] Main Bldg, 7th [place] [address] Arnaldo Araujo PA-C Adenocarcinoma of stomach (Primary Dx) 06/12/2024 Telephone [facility] [address]ldg, 7th [place] [address] Mary Kay Santamaria APRN 06/12/2024 Orders Only [facility] [address] Main Bldg, 7th [place] [address] Mary Kay Santamaria APRN Adenocarcinoma of stomach (Primary Dx) 06/10/2024 Orders Only [facility] [address] Main Bldg, 7th [place] [address] Mary Kay Santamaria APRN Adenocarcinoma of stomach (Primary Dx) 06/05/2024 Telephone [facility]ology [facility] Hepatology & Nutrition [address] [place] [address], 7th [place] [address] Arnaldo Araujo PA-C 06/03/2024 5:30 PM AMUSEMENT MACHINE MECHANIC [facility] - Blue [address] [facility], 8th [place] [address] Marianela Hutchinson MD Lewandowski, Teresa M, RN Adenocarcinoma of stomach (Primary Dx) 06/03/2024 Travel 06/02/2024 Telephone [facility] [address] [place] [address], 7th [place] [address] Mony Saavedra RN 06/01/2024 1:00 PM AMUSEMENT MACHINE MECHANIC Infusion [facility] [address] [place] [address] [facility], Floor 6 [place] [address] Marianela Hutchinson MD Shaik, Anna Marie B, RN Adenocarcinoma of stomach (Primary Dx); Iron deficiency anemia, not otherwise specified 06/01/2024 10:53 AM AMUSEMENT MACHINE MECHANIC - 06/01/2024 11:59 PM AMUSEMENT MACHINE MECHANIC Hospital Encounter [facility] [address] [place] [phone] Marianela Hutchinson MD Adenocarcinoma of stomach; Iron deficiency anemia, not otherwise specified Discharge Disposition: Home 06/01/2024 Orders Only [facility] [address] [place] [address], 7th [place] [address] Marianela Hutchinson MD 06/01/2024 Orders Only [facility] [address] [place] [address], 7th [place] [address] Radha Castellon [facility] Adenocarcinoma of stomach (Primary Dx); Iron deficiency anemia, not otherwise specified 06/01/2024 Travel 06/01/2024 Orders Only [facility] [address] [place] [address] [facility], Floor 6 [place] [address] Marianela Hutchinson MD Adenocarcinoma of stomach (Primary Dx) 05/26/2024 Telephone [facility]ology , Hepatology & Nutrition [address] [place] [address] Main [facility], 7th [place] [address] Arnaldo Araujo PA-C 05/22/2024 Telephone [facility]astroenterology , Hepatology & Nutrition [address] [place] [address], 7th [place] [address] Arnaldo Araujo PA-C 05/22/2024 Orders Only [facility]astroenterology , Hepatology & Nutrition [address] [place] [address], 7th [place] [address] Arnaldo Araujo PA-C Candidal esophagitis (Primary Dx) 05/20/2024 4:30 PM AMUSEMENT MACHINE MECHANIC - 05/20/2024 11:59 PM AMUSEMENT MACHINE MECHANIC Hospital Encounter Ambulatory Treatment Center - [address], 2nd Floor, [place] [address] Marianela Hutchinson MD Lewandowski, Teresa M, RN Adenocarcinoma of stomach Discharge Disposition: Home 05/19/2024 12:44 PM AMUSEMENT MACHINE MECHANIC Anesthesia Event [facility] [address] [place] [address], 5th [place] [address] Maurice Ferrera MD [facility], [facility] 05/19/2024 12:00 PM AMUSEMENT MACHINE MECHANIC - 05/19/2024 1:10 PM AMUSEMENT MACHINE MECHANIC [facility] [address] [place] [address], 5th [place] [address] Brandon Alcala MD UPPER GASTROINTESTINAL ENDOSCOPY OF ESOPHAGUS, STOMACH, OR DUODENUM ANDJ ADJACENT STRUCTURES, WITH ENDOSCOPIC ULTRASOUND EXAMINATION 05/19/2024 11:17 AM AMUSEMENT MACHINE MECHANIC - 05/19/2024 2:49 PM AMUSEMENT MACHINE MECHANIC Hospital Encounter Endoscopy Center [address] [place] [address], 5th [place] [address] Brandon Alcala MD Adenocarcinoma of stomach Discharge Disposition: Home 05/19/2024 Travel 05/18/2024 1:00 PM AMUSEMENT MACHINE MECHANIC Infusion [facility] - [facility] [address] [facility], Floor 6 [place] [address] Marianela Hutchinson MD Rupp, Alexa B, RN Adenocarcinoma of stomach (Primary Dx) 05/18/2024 12:20 PM AMUSEMENT MACHINE MECHANIC [facility] [address] [place] [address], 7th [place] [address] Marianela Hutchinson MD Adenocarcinoma, NOS of stomach, NOS 05/18/2024 11:00 AM AMUSEMENT MACHINE MECHANIC POEM Appointments [facility] [address] [place] [address], 6th [place] [address] Marianela Hutchinson MD 05/18/2024 10:32 AM AMUSEMENT MACHINE MECHANIC - 05/18/2024 11:59 PM AMUSEMENT MACHINE MECHANIC Hospital Encounter Diagnostic [facility] [address] [place] [address] Gillian Gomez PA-C Adenocarcinoma, NOS of stomach, NOS Discharge Disposition: Home 05/18/2024 Orders Only [facility] [address] [place] [address], 7th [place] [address] Marianela Hutchinson MD Adenocarcinoma of stomach (Primary Dx) 05/18/2024 Orders Only [facility] [address] [place] [address], 7th [place] [address] Radha Castellon Werner Adenocarcinoma of stomach (Primary Dx); Iron deficiency anemia, not otherwise specified 05/18/2024 Travel 05/15/2024 11:59 PM AMUSEMENT MACHINE MECHANIC Anesthesia Event [facility] [address] [place] [address], 6th [place] [address] Eri Lynne, ARTURO 05/06/2024 5:30 PM AMUSEMENT MACHINE MECHANIC [facility] [place] - Blue [address] [facility], 8th [place] [address] Marianela Hutchinson MD Pagara, Leni S, RN Adenocarcinoma of stomach 05/04/2024 12:36 PM AMUSEMENT MACHINE MECHANIC - 05/04/2024 11:59 PM AMUSEMENT MACHINE MECHANIC Hospital Encounter Ambulatory Treatment Center - Main [address], 2nd Floor, [place] [address] Gillian Gomez PA-C Jo, Edifia Sungsoon, RN Adenocarcinoma of stomach (Primary Dx) Discharge Disposition: Home 05/04/2024 12:20 PM AMUSEMENT MACHINE MECHANIC [facility] [address] [place] [address], 7th [place] [address] Marianela Hutchinson MD Adenocarcinoma, NOS of stomach, NOS 05/04/2024 11:10 AM AMUSEMENT MACHINE MECHANIC - 05/04/2024 12:35 PM AMUSEMENT MACHINE MECHANIC Hospital Encounter [facility] Center [address] [place] [address] Gillian Gomez PA-C Adenocarcinoma, NOS of stomach, NOS; Adenocarcinoma of stomach Discharge Disposition: Home 05/04/2024 Orders Only [facility] [address] [place] [address], 7th [place] [address] Marianela Hutchinson MD Adenocarcinoma of stomach (Primary Dx) 05/04/2024 Orders Only [facility] [address] [place] [address], 7th [place] [address] Radha Castellon [facility] Adenocarcinoma of stomach (Primary Dx) 05/04/2024 Travel 04/30/2024 Orders Only [facility] - Surgical Oncology [address] [place] [address], 7th [place] [address] Mary Kay Santamaria APRN Adenocarcinoma of stomach (Primary Dx); Paroxysmal atrial fibrillation; Hyperlipidemia, not otherwise specified; Type 2 diabetes mellitus with hyperglycemia 04/27/2024 8:05 PM AMUSEMENT MACHINE MECHANIC Ancillary Procedure [facility] [address] [place] [address] Cancer 04/27/2024 8:00 PM AMUSEMENT MACHINE MECHANIC Ancillary Procedure [facility] [address] [place] [address] Cancer 04/27/2024 Orders Only [facility] [address] [place] [address], 7th [place] [address] Donnell Van Adenocarcinoma of stomach (Primary Dx) 04/24/2024 Documentation [facility] Access [facility] Procedures Center [address] [facility], 8th [place] [address] Mary Kay Santamaria, FRANK 04/24/2024 Orders Only [facility] Oncology [address] [place] [address], [address] [place] [address] [place] [address] Mary Kay Santamaria, FORESTRY AID TECHNICIAN Adenocarcinoma, NOS of stomach, NOS (Primary Dx) 04/24/2024 Telephone [facility] [address] [place] [address], [address] [place] [address] Mary Kay Santamaria, FRANK 04/22/2024 Lab Requisition [facility] Sincere Moralez MD Jain, Shilpa, MD 04/21/2024 Orders Only [facility] [address] [place] [address], [address] [place] [address] Gillian Gomez PA-C Adenocarcinoma, NOS of stomach, NOS (Primary Dx); Adenocarcinoma of stomach 04/16/2024 Telephone POPEYE POTTERVABebeto PHYSICIAN [address] [place] [address] 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, chain maker loom control Call 04/15/2024 10:09 AM AMUSEMENT MACHINE MECHANIC Anesthesia Event MAIN OR [address] [place] [address] Meenakshi Crowe MD Miller, Wendy, CRNA 04/15/2024 10:05 AM AMUSEMENT MACHINE MECHANIC - 04/15/2024 1:25 PM AMUSEMENT MACHINE MECHANIC Surgery MAIN OR [address] [place], [place] [id number] John Fong MD ROBOTIC ASSISTED SURGICAL LAPAROSCOPY 04/15/2024 7:32 AM AMUSEMENT MACHINE MECHANIC - 04/15/2024 11:50 PM AMUSEMENT MACHINE MECHANIC Hospital Encounter MAIN OR [address] [place] [address] John Fong MD Adenocarcinoma of stomach (Primary Dx) Discharge Disposition: Home 04/15/2024 Travel 04/14/2024 2:30 PM AMUSEMENT MACHINE MECHANIC Consult [facility] [address] [place] [address] Main [facility], 7th [place] [address] Gillian Gomez PA-C Badgwell, Brian, MD Adenocarcinoma, NOS of stomach, NOS (Primary Dx); Nausea 04/14/2024 Documentation [facility] [address] [place] [address] Main [facility], 7th [place] [address] John Fong MD 04/13/2024 3:00 PM AMUSEMENT MACHINE MECHANIC Consult [facility] [address] [place] [address], city hospital [place] [address] Marianela Hutchinson MD Mass of stomach (Primary Dx) 04/13/2024 2:02 PM AMUSEMENT MACHINE MECHANIC Anesthesia Event [facility] [address] [place] [address], 6th [place] [address] Curtis Moctezuma PA 04/12/2024 8:22 AM AMUSEMENT MACHINE MECHANIC - 04/12/2024 3:42 PM AMUSEMENT MACHINE MECHANIC Hospital Encounter MAIN P06B [address] [place] [address] Nghia Zhu MD Elsayem, Ahmed, MD Nausea and vomiting (Primary Dx); Gastric cancer; Pancreatitis Discharge Disposition: Left Against Medical Advice 04/12/2024 Travel 04/09/2024 8:25 PM AMUSEMENT MACHINE MECHANIC Ancillary Procedure [facility] [address] [place] [address] Margoth Souza MD Cancer 04/09/2024 8:20 PM AMUSEMENT MACHINE MECHANIC Ancillary Procedure [facility] [address] [place] [address] Margoth Souza MD Cancer 04/09/2024 8:15 PM AMUSEMENT MACHINE MECHANIC Ancillary Procedure [facility] [address] [place] [address] Margoth Souza MD Cancer 04/09/2024 8:10 PM AMUSEMENT MACHINE MECHANIC Ancillary Procedure [facility] [address] [place], [place] [id number] Margoth Souza MD Cancer 04/09/2024 8:05 PM AMUSEMENT MACHINE MECHANIC Ancillary Procedure [facility] [address] [place] [address] Margoth Souza MD Cancer 04/09/2024 8:00 PM AMUSEMENT MACHINE MECHANIC Ancillary Procedure [facility] [address] [place] [address] Margoth Souza MD Cancer 04/09/2024 10:48 AM AMUSEMENT MACHINE MECHANIC - 04/09/2024 11:59 PM AMUSEMENT MACHINE MECHANIC Hospital Encounter Diagnostic Laboratory Center [address] [place] [address] Ceci Nicholson MD Encounter for other preprocedural examination; Atherosclerosis of coronary 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, not otherwise specified; 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 Discharge Disposition: Home 04/09/2024 10:00 AM AMUSEMENT MACHINE MECHANIC POEM Appointments [facility] [address] [place] [address], 6th [place] [address] Margoth Souza MD 04/09/2024 9:56 AM AMUSEMENT MACHINE MECHANIC - 04/09/2024 10:47 AM AMUSEMENT MACHINE MECHANIC Hospital Encounter [facility] - Cardiology [address] [place] [address], 2nd [place] [address] Ceci Nicholson MD Adenocarcinoma of stomach; Hyperlipidemia, not otherwise specified; Encounter for other preprocedural examination; Atherosclerosis of coronary 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, not otherwise specified Discharge Disposition: Home 04/09/2024 9:00 AM AMUSEMENT MACHINE MECHANIC Consult Perioperative Evaluation and Management [address] [place] [address], 6th [place] [address] Mary Kay Santamaria APRN Misoi, Mercy W, MD Encounter for other preprocedural examination (Primary Dx); Adenocarcinoma of stomach; Paroxysmal atrial fibrillation; Hypertension; 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; Hyperlipidemia, not otherwise specified; Current use of 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; Atherosclerosis of coronary 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, not otherwise specified 04/09/2024 Travel 04/08/2024 Prep for Surgery [facility] [address] [place] [address], [address] [place] [address] [place] [address] Mary Kay Santamaria APRN Adenocarcinoma of stomach (Primary Dx); Mass of stomach 04/08/2024 Orders Only [facility] Oncology [address] [place] [address], [address] [place] [address] [place] [address] Mary Kay Santamaria APRN Adenocarcinoma of stomach (Primary Dx); Paroxysmal atrial fibrillation; Hypertension; 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; Hyperlipidemia, not otherwise specified; Current use of 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 04/08/2024 Orders Only [facility] [address] [place] [address], [address] [place], [place] [address] [address] Gillian Gomez PA-C Adenocarcinoma, NOS of stomach, NOS (Primary Dx) 04/06/2024 Orders [facility] [address] [place] [address], [address] [place] [address] [place] [address] Roberto Poole PA 04/06/2024 Orders Only [facility] [address] [place] [address], city hospital [place] [address] Roberto Poole PA Mass of stomach (Primary Dx) 04/06/2024 Orders Only [facility] [address] [place] [address], city [place] [address] Roberto Poole PA Mass of stomach (Primary Dx) 04/06/2024 Telephone [facility] [address] [place] [address], city hospital [place] [address] Anais Meng RN 02/11/2024 Travel 02/10/2024 3:30 PM CDT Telemedicine [facility] [address] [place] [address], city [place] [address] Margoth Souza MD Renal mass (Primary Dx) after 01/08/2024 Immunizations Immunization Administration Dates Next Due Influenza, [...] note, pt was on [facility] Peripheral vascular disease 2023 Left LE s/p [...] on file Legal Sex Male 11:38 AM AMUSEMENT MACHINE MECHANIC Gender Identity Not on file Sexual Orientation Not on file Occupation Industry Job Start Date Job End Date retired from [employer] Not on file N ot on [...] Care Team (Late st Contact Info) Description 01/22/2025 8:00 AM CDT Appointment Diagnostic [facility] [address] [place] [address] Marianela Hutchinson MD [address] [place] [phone] [email or web address] 01/22/2025 8:[address] Imaging and Diagnostic Imaging [address] [place] [address], 3rd [place] [address] Gillian Gomez PA-C [address] [place] [phone] [email or web address] 01/25/2025 12:20 PM CDT Follow-Up [facility] [address] [place] [address], 7th [place] [address] Marianela Hutchinson MD [address] [place] [phone] [email or web address] 02/05/2025 10:25 AM CDT Ancillary Procedure CT Imaging [facility], [address] [place] [address] Margoth Souza MD [address] [place] [phone] [email or web address] 02/05/2025 10:45 AM CDT Lab [facility] [address] [place] [address], [address] [place] [address] Margoth Souza MD [address] [place] [phone] [email or web address] 02/05/2025 11:15 AM CDT Ancillary Procedure X-Ray Outpatient Center [address] [place] [address] Margoth Souza MD [address] [place] [phone] [email or web address] 02/08/2025 2:30 PM CDT Telemedicine [facility] [address] [place] [address], [address] [place] [address] Margoth Souza MD [address] [place] [phone] [email or web address] Health Maintenance Due Date Last Done Comments COVID-19 Vaccine (#1) 01/09/1969 Pneumococcal Vaccine: 50+ Years (1 of 2 - PCV) 983 01/09/1975 Influenza Vaccine (#1) 2025 08/04/2018 Medical Devices Implanted Type Area Laboratory Supervisor Device Identifier Shelf Expiration Date Model / Serial / Lot PwrportSladeim 6fr - [id number] Implanted:Qty: 1 on 04/15/2024 by John Fong MD at [facility] Implant Right: Neck [employer] 12/17/2024 [id number] / / [id number] Procedures Procedure Name Priority Date/Time Associated Diagnosis [...] PELVIS W CONTRAST Routine 07/15/2024 4:38 PM AMUSEMENT MACHINE MECHANIC Adenocarcinoma of stomach .CBC Routine 07/15/2024 10:01 AM AMUSEMENT MACHINE MECHANIC Adenocarcinoma of stomach CARCINOEMBRYONIC ANTIGEN Routine 025 10:01 AM AMUSEMENT MACHINE MECHANIC Adenocarcinoma of stomach LACTATE DEHYDROGENASE Routine 07/15/2024 10:01 AM AMUSEMENT MACHINE MECHANIC Adenocarcinoma of stomach PHOSPHORUS LEVEL Routine 07/15/2024 10:01 AM AMUSEMENT MACHINE MECHANIC Adenocarcinoma of stomach MAGNESIUM LEVEL Routine 07/15/2024 10:01 AM AMUSEMENT MACHINE MECHANIC Adenocarcinoma of stomach COMPREHENSIVE METABOLIC PANEL Routine 10:01 AM AMUSEMENT MACHINE MECHANIC Adenocarcinoma of stomach COMPLETE BLOOD COUNT W/ DIFFERENTIAL Routine 07/15/2024 10:01 AM AMUSEMENT MACHINE MECHANIC Adenocarcinoma of stomach RESEARCH PROTOCOL [id number] Routine 07/15 10:01 AM AMUSEMENT MACHINE MECHANIC Adenocarcinoma of stomach MDA AP IHC WORKUP Routine 07/07/2024 12:29 PM AMUSEMENT MACHINE MECHANIC Adenocarcinoma of stomach POC GLUCOSE SCREEN Routine 06/30/2024 1:23 PM AMUSEMENT MACHINE MECHANIC PATHOLOGY BIOPSY INTERPRETATION Routine 06/30/2024 12:51 PM AMUSEMENT MACHINE MECHANIC Adenocarcinoma of stomach MA ESOPHAGOGASTRODUODENOSCOP Y TRANSORAL DIAGNOSTIC 06/30/2024 12:15 PM AMUSEMENT MACHINE MECHANIC Adenocarcinoma of stomach Case Notes 06/12 per gene to schedule on 06/30, per tor to schedule 06/30 thru lunch last AM case, slot held to offer. LVM and sent mychart to schedule-DC Special Needs SHOE LINING FITTERARTURO PEREZ COMPLETE 06/18.SHOE LINING FITTERARTURO HERNANDEZ FOR DAUGHTER WITH DETAILED INSTRUCTIONS FOR PROCEDURE IN ADDITION TO HOLD ON PLAVIX FOR 5 DAYS.SHOE LINING FITTERARTURO HERNANDEZ 1ST CALL 06/16. POC CHEM 8 Routine 06/30/2024 11:10 AM AMUSEMENT MACHINE MECHANIC POC GLUCOSE SCREEN Routine 06/30/2024 10:52 AM AMUSEMENT MACHINE MECHANIC POC CHEM 8 Routine 06/29/2024 9:54 AM AMUSEMENT MACHINE MECHANIC EKG, 12-LEAD (SCHEDULED) Routine 06/29/2024 Adenocarcinoma of stomach PETCT F18 FDG (FLUORODEOXYGLUCOSE) WITH CONTRAST Routine 06/20/2024 12:42 PM AMUSEMENT MACHINE MECHANIC Adenocarcinoma, NOS of stomach, NOS Malignant neoplasm of overlapping sites of esophagus POC GLUCOSE SCREEN Routine 06/20/2024 11:06 AM AMUSEMENT MACHINE MECHANIC .CBC Routine 06/20/2024 10:35 AM AMUSEMENT MACHINE MECHANIC Adenocarcinoma, NOS of stomach, NOS CARCINOEMBRYONIC ANTIGEN Routine 025 10:35 AM AMUSEMENT MACHINE MECHANIC Adenocarcinoma, NOS of stomach, NOS LACTATE DEHYDROGENASE Routine 06/20/2024 10:35 AM AMUSEMENT MACHINE MECHANIC Adenocarcinoma, NOS of stomach, NOS PHOSPHORUS LEVEL Routine 06/20/2024 10:35 AM AMUSEMENT MACHINE MECHANIC Adenocarcinoma, NOS of stomach, NOS MAGNESIUM LEVEL Routine 06/20/2024 10:35 AM AMUSEMENT MACHINE MECHANIC Adenocarcinoma, NOS of stomach, NOS COMPREHENSIVE METABOLIC PANEL Routine 10:35 AM AMUSEMENT MACHINE MECHANIC Adenocarcinoma, NOS of stomach, NOS COMPLETE BLOOD COUNT W/ DIFFERENTIAL Routine 06/20/2024 10:35 AM AMUSEMENT MACHINE MECHANIC Adenocarcinoma, NOS of stomach, NOS .CBC Routine 06/15/2024 10:39 AM AMUSEMENT MACHINE MECHANIC Adenocarcinoma of stomach CARCINOEMBRYONIC ANTIGEN Routine 025 10:39 AM AMUSEMENT MACHINE MECHANIC Adenocarcinoma, NOS of stomach, NOS LACTATE DEHYDROGENASE Routine 06/15/2024 10:39 AM AMUSEMENT MACHINE MECHANIC Adenocarcinoma, NOS of stomach, NOS PHOSPHORUS LEVEL Routine 06/15/2024 10:39 AM AMUSEMENT MACHINE MECHANIC Adenocarcinoma, NOS of stomach, NOS MAGNESIUM LEVEL Routine 06/15/2024 10:39 AM AMUSEMENT MACHINE MECHANIC Adenocarcinoma, NOS of stomach, NOS COMPREHENSIVE METABOLIC PANEL Routine 10:39 AM AMUSEMENT MACHINE MECHANIC Adenocarcinoma of stomach COMPLETE BLOOD COUNT W/ DIFFERENTIAL Routine 06/15/2024 10:39 AM AMUSEMENT MACHINE MECHANIC Adenocarcinoma of stomach .CBC Routine 06/01/2024 11:10 AM AMUSEMENT MACHINE MECHANIC Adenocarcinoma of stomach TRANSFERRIN Routine 06/01/2024 11:10 AM AMUSEMENT MACHINE MECHANIC Iron deficiency anemia, not otherwise specified Adenocarcinoma of stomach FERRITIN Routine 06/01/2024 11:10 AM AMUSEMENT MACHINE MECHANIC Iron deficiency anemia, not otherwise specified Adenocarcinoma of stomach IRON LEVEL Routine 06/01/2024 11:10 AM AMUSEMENT MACHINE MECHANIC Iron deficiency anemia, not otherwise specified Adenocarcinoma of stomach COMPREHENSIVE METABOLIC PANEL Routine 11:10 AM AMUSEMENT MACHINE MECHANIC Adenocarcinoma of stomach COMPLETE BLOOD COUNT W/ DIFFERENTIAL Routine 06/01/2024 11:10 AM AMUSEMENT MACHINE MECHANIC Adenocarcinoma of stomach POC GLUCOSE SCREEN Routine 05/19/2024 1:52 PM AMUSEMENT MACHINE MECHANIC PATHOLOGY BIOPSY INTERPRETATION Routine 05/19/2024 1:10 PM AMUSEMENT MACHINE MECHANIC Adenocarcinoma of stomach MA ESOPHAGOGASTRODUODENOSCOP Y US SCOPE W/ADJ STRXRS 05/19/2024 12:34 PM AMUSEMENT MACHINE MECHANIC Adenocarcinoma of stomach Case Notes 04/24- WAITING FOR TRIAGE TO LA FOR 05/01- Special Needs SHOE LINING FITTER [place] Call Completed 04/30/24ad laproscopy on 04/15/24 POC GLUCOSE SCREEN Routine 05/19/2024 12:21 PM AMUSEMENT MACHINE MECHANIC .CBC Routine 05/18/2024 10:55 AM AMUSEMENT MACHINE MECHANIC Adenocarcinoma, NOS of stomach, NOS CARCINOEMBRYONIC ANTIGEN Routine 024 10:55 AM AMUSEMENT MACHINE MECHANIC Adenocarcinoma, NOS of stomach, NOS LACTATE DEHYDROGENASE Routine 05/18/2024 10:55 AM AMUSEMENT MACHINE MECHANIC Adenocarcinoma, NOS of stomach, NOS PHOSPHORUS LEVEL Routine 05/18/2024 10:55 AM AMUSEMENT MACHINE MECHANIC Adenocarcinoma, NOS of stomach, NOS MAGNESIUM LEVEL Routine 05/18/2024 10:55 AM AMUSEMENT MACHINE MECHANIC Adenocarcinoma, NOS of stomach, NOS COMPREHENSIVE METABOLIC PANEL Routine 10:55 AM AMUSEMENT MACHINE MECHANIC Adenocarcinoma, NOS of stomach, NOS COMPLETE BLOOD COUNT W/ DIFFERENTIAL Routine 05/18/2024 10:55 AM AMUSEMENT MACHINE MECHANIC Adenocarcinoma, NOS of stomach, NOS .CBC Routine 05/04/2024 11:34 AM AMUSEMENT MACHINE MECHANIC Adenocarcinoma, NOS of stomach, NOS RESEARCH PROTOCOL [id number] Routine 05/04 11:34 AM AMUSEMENT MACHINE MECHANIC Adenocarcinoma of stomach CARCINOEMBRYONIC ANTIGEN Routine 11:34 AM AMUSEMENT MACHINE MECHANIC Adenocarcinoma, NOS of stomach, NOS LACTATE DEHYDROGENASE Routine 05/04/2024 11:34 AM AMUSEMENT MACHINE MECHANIC Adenocarcinoma, NOS of stomach, NOS PHOSPHORUS LEVEL Routine 05/04/2024 11:34 AM AMUSEMENT MACHINE MECHANIC Adenocarcinoma, NOS of stomach, NOS MAGNESIUM LEVEL Routine 05/04/2024 11:34 AM AMUSEMENT MACHINE MECHANIC Adenocarcinoma, NOS of stomach, NOS COMPREHENSIVE METABOLIC PANEL Routine 11:34 AM AMUSEMENT MACHINE MECHANIC Adenocarcinoma, NOS of stomach, NOS COMPLETE BLOOD COUNT W/ DIFFERENTIAL Routine 05/04/2024 11:34 AM AMUSEMENT MACHINE MECHANIC Adenocarcinoma, NOS of stomach, NOS VERIFY CATHETER TIP PLACEMENT Routine 3:50 PM AMUSEMENT MACHINE MECHANIC Adenocarcinoma of stomach POC GLUCOSE SCREEN Routine 04/15/2024 3:21 PM AMUSEMENT MACHINE MECHANIC XR CHEST 1 VW PORTABLE Routine 2:45 PM AMUSEMENT MACHINE MECHANIC POC GLUCOSE SCREEN Routine 04/15/2024 1:05 PM AMUSEMENT MACHINE MECHANIC POC GLUCOSE SCREEN Routine 04/15/2024 12:52 PM AMUSEMENT MACHINE MECHANIC CYTOLOGY NON-DIRECTOR OF MAINTENANCE INTERPRETATION Routine 04/15/2024 12:33 PM AMUSEMENT MACHINE MECHANIC Adenocarcinoma of stomach PATHOLOGY SURGICAL INTERPRETATION Routine 04/15/2024 12:13 PM AMUSEMENT MACHINE MECHANIC Adenocarcinoma of stomach FL CENTRAL VENOUS PLACE EXCHANGE Routine 04/15/2024 11:40 AM AMUSEMENT MACHINE MECHANIC Adenocarcinoma of stomach POC GLUCOSE SCREEN Routine 04/15/2024 9:22 AM AMUSEMENT MACHINE MECHANIC MA INSJ TUNNELED CTR VAD W/SUBQ PORT AGE 4 YR/> 04/15/2024 9:16 AM AMUSEMENT MACHINE MECHANIC Adenocarcinoma of stomach Special Needs MTL@0800 MA US VASC ACCESS SITS VSL PATENCY NDL ENTRY 04/15/2024 9:16 AM AMUSEMENT MACHINE MECHANIC Adenocarcinoma of stomach Special Needs MTL@0800 MA FLUORO CENTRAL VENOUS ACCESS DEV PLACEMENT 04/15/2024 9:16 AM AMUSEMENT MACHINE MECHANIC Adenocarcinoma of stomach Special Needs MTL@0800 MA LAPS ABD PRTM&OMENTUM DX W/WO SPEC BR/WA SPX 04/15/2024 9:16 AM AMUSEMENT MACHINE MECHANIC Adenocarcinoma of stomach Special Needs MTL@0800 CT ABDOMEN PELVIS W CONTRAST Routine 11:18 AM AMUSEMENT MACHINE MECHANIC .CBC Routine 04/12/2024 9:04 AM AMUSEMENT MACHINE MECHANIC LIPASE LEVEL Routine 04/12/2024 9:04 AM AMUSEMENT MACHINE MECHANIC AMYLASE LEVEL Routine 04/12/2024 9:04 AM AMUSEMENT MACHINE MECHANIC LACTATE DEHYDROGENASE Routine 04/12/2024 9:04 AM AMUSEMENT MACHINE MECHANIC FRACTIONATED BILIRUBIN Routine 9:04 AM AMUSEMENT MACHINE MECHANIC PHOSPHORUS LEVEL Routine 04/12/2024 9:04 AM AMUSEMENT MACHINE MECHANIC MAGNESIUM LEVEL Routine 04/12/2024 9:04 AM AMUSEMENT MACHINE MECHANIC COMPREHENSIVE METABOLIC PANEL Routine 9:04 AM AMUSEMENT MACHINE MECHANIC COMPLETE BLOOD COUNT W/ DIFFERENTIAL Routine 04/12/2024 9:04 AM AMUSEMENT MACHINE MECHANIC .CBC Routine 04/09/2024 11:09 AM AMUSEMENT MACHINE MECHANIC Encounter for other preprocedural examination Atherosclerosis of coronary 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, not otherwise specified THYROID STIMULATING HORMONE Routine 03/21 11:09 AM AMUSEMENT MACHINE MECHANIC Encounter for other preprocedural examination Atherosclerosis of coronary 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, not otherwise specified HEMOGLOBIN A1C Routine 04/09/2024 11:09 AM AMUSEMENT MACHINE MECHANIC 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 Encounter for other preprocedural examination COMPREHENSIVE METABOLIC PANEL Routine 11:09 AM AMUSEMENT MACHINE MECHANIC Encounter for other preprocedural examination Atherosclerosis of coronary 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, not otherwise specified COMPLETE BLOOD COUNT W/ DIFFERENTIAL Routine 04/09/2024 11:09 AM AMUSEMENT MACHINE MECHANIC Encounter for other preprocedural examination Atherosclerosis of coronary 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, not otherwise specified EKG, 12-LEAD (SCHEDULED) Routine 04/09/2024 Adenocarcinoma of stomach Hyperlipidemia, not otherwise specified Encounter for other preprocedural examination Atherosclerosis of coronary 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, not otherwise specified PATHOLOGY OUTSIDE INTERPRETATION Routine 04/02/[address] ABDOMEN AND PELVIS Routine 2023 8:21 AM AMUSEMENT MACHINE MECHANIC Cancer OSI CHEST Routine 03/23/2024 7:37 PM AMUSEMENT MACHINE MECHANIC Cancer OSI CT CHEST ABDOMEN PELVIS Routine 08/2023 7:37 PM AMUSEMENT MACHINE MECHANIC Cancer OSI CHEST Routine 03/23/2024 7:37 PM AMUSEMENT MACHINE MECHANIC Cancer OSI CT CHEST Routine 03/22/2024 8:21 AM AMUSEMENT MACHINE MECHANIC Cancer OSI CT ABDOMEN AND PELVIS Routine 2023 7:36 PM CDT Cancer OSI CHEST Routine 01/20/2024 7:37 PM CDT Cancer OSI CHEST Routine 01/20/2024 7:37 PM CDT Cancer after 01/08/2024 Results * Sodium Level, Urine (11/13/2024 2:01 PM CDT) Urine Sodium 67 mmol/L 11/13/2024 3:28 PM CDT [facility] Comment:Normal range not cyndee ilable for collections less than 24 hours in duration. Urine Voided urine specimen / Unknown Non-blood Collection / Unknown 11/13/2024 2:01 PM CDT 11/13/2024 2:05 PM CDT us Shira Segovia MD URINE ORDERABLES Final Result Performing Organization Address City/[facility] Co de Phone Number [facility] Unless otherwise noted, all lab tests performed by: Division of Pathology and Laboratory Medicine [address] [place] [id number] * Potassium Urine (11/13/2024 2:01 PM CDT) Urine Potassium 73 mmol/L 3:28 PM CDT [facility] Comment:Normal range not cyndee ilable for collections less than 24 hours in duration. Urine Voided urine specimen / Unknown Non-blood Collection / Unknown 11/13/2024 2:01 PM CDT 11/13/2024 2:05 PM CDT us Shira Segovia MD URINE ORDERABLES Final Result [facility] Unless otherwise noted, all lab tests performed by: Division of Pathology and Laboratory Medicine [address] [place] [id number] * Osmolality Urine (11/13/2024 2:01 PM CDT) Pathologist [facility] Urine Osmolality 724 50 - 1,400 mOsm/kg H2O 11/13/2024 3:27 PM CDT [facility] Comment:Urinary osmolality m ay vary [...] 2:01 PM CDT 11/13/2024 2:05 PM CDT Shira Segovia MD URINE ORDERABLES Final Result Performing Organization Address [facility] de Phone Number [facility] Unless otherwise noted, all lab tests performed by: Division of Pathology and Laboratory Medicine [address] [place] [id number] * (ABNORMAL) .CBC (11/13/2024 1:57 PM CDT) Only the most recent of17 resultswithin the time period is included. Pathologist [facility] White Blood Cell 9.6 4.1 - 10.5 K/uL 11/13/2024 2:45 PM CDT [facility] Red Blood Cell 11/13/2024 2:45 PM CDT [facility] Comment:See Scanned Document Hemoglobin 11.6(L) 13.3 - 17.4 g/dL 11/13/2024 2:45 PM CDT [facility] Hematocrit 11/13/2024 2:45 PM CDT [facility] Comment:See Scanned Document Mean Cell Volume 11/14/19 2:45 PM CDT [facility] Comment:See Scanned Document Mean Cell Hemoglobin 11/13/2024 2:45 PM CDT [facility] Comment:See Scanned Document Mean Cell Hemoglobin Concentration 11/13/2024 2:45 PM CDT [facility] Comment:See Scanned Document RDW-SD 11/13/2024 2:45 PM [facility] Comment:See Scanned Document Red Cell Diameter Width 11/13/2024 2:45 PM [facility] Comment:See Scanned Document Platelet 165 160 - 397 K/uL 11/13/2024 2:45 PM [facility] Mean Platelet Volume 11/13/2024 2:45 PM [facility] Comment:See Scanned Document Neutrophil % 78.1(H) 43.2 - 72.7 % 11/13/2024 2:45 PM [facility] Neutrophil Abs 7.50(H) 1.95 - 7.25 K/uL 11/13/2024 2:45 PM [facility] Lymphocyte Abs 1.08 1.01 - 3.24 K/uL 11/13/2024 2:45 PM [facility] Blood Peripheral blood specimen / Unknown Venipuncture / Unknown 11/13/2024 1:57 PM CDT 11/13/2024 2:02 PM CDT Gillian Gomez PA-C LAB BLOOD ORDERABLES Final Result [facility] [address] [place] [address] * (ABNORMAL) Comprehensive Metabolic Panel (11/13/2024 1:57 PM CDT) Only the most recent of18 resultswithin the time period is included. Bilirubin Total <0.3 0.0 - 1.2 mg/dL 11/13/2024 2:33 PM [facility] Comment:Indocyanine Green (I CG) may cause falsely elevated bilirubin results. Total and direct bilirubin must not be measured from samples containing indocyanine green. False elevation of total bilirubin can be seen in patients with IgG concentrations above 28 g/L. eGFR 100 >=60 mL/min/1. 73 sq. m 11/13/2024 2:33 PM [facility] Comment: The eGFRcr is calculated with [...] 6.4 - 8.3 gm/dL 11/13/2024 2:33 PM CDT [facility] Calcium Level Total 9.2 8.2 - 10.2 mg/dL 11/13/2024 2:33 PM CDT [facility] Alkaline Phosphatase 99 40 - 129 U/L 11/13/2024 2:33 PM CDT [facility] Albumin Level 3.7 3.5 - 5.2 gm/dL 11/13/2024 2:33 PM CDT [facility] AST 13 <=40 U/L 11/13/2024 2:33 PM CDT [facility] ALT 6 <=41 U/L 11/13/2024 2:33 PM CDT [facility] Sodium Level 135(L) 136 - 145 mmol/L 11/13/2024 2:33 PM CDT [facility] Potassium Level 4.4 3.4 - 4.5 mmol/L 11/13/2024 2:33 PM CDT [facility] Chloride 98 98 - 107 mmol/L 11/13/2024 2:33 PM CDT [facility] CO2 26 22 - 29 mmol/L 11/13/2024 2:33 PM CDT [facility] Anion Gap 11 4 - 14 mmol/L 11/13/2024 2:33 PM CDT [facility] Creatinine 0.83 0.67 - 1.17 mg/dL 11/13/2024 2:33 PM CDT [facility] BUN 19 6 - 23 mg/dL 11/13/2024 2:33 PM CDT [facility] Glucose Level 217(H) 70 - 99 mg/dL 11/13/2024 2:33 PM CDT [facility] Comment: Effective 12/14/15, the glucose reference intervals have been updated based on [place] [employer] guidelines (Standards of Medical Care [...] BLOOD ORDERABLES Final Result Performing Organization Address City/[facility]/ZIP Co de Phone Number [facility] [address] [place] [address] * Osmolality (11/13/2024 1:57 PM CDT) Osmolality 291 275 - 300 mOsm/kg 11/13/2024 3:30 PM CDT [facility] Comment:Units in mOsm per kg of water. Blood Peripheral blood specimen / Unknown Venipuncture / Unknown 11/13/2024 1:57 PM CDT 11/13/2024 2:02 PM CDT Shira Segovia MD LAB BLOOD ORDERABLES Final Resul t [facility] Unless otherwise noted, all lab tests performed by: Division of Pathology and Laboratory Medicine [facility] [place] [address] * X-ray Foot 3+ Views Bilateral (11/13/2024 [...] unexpected and potentially actionable. Shira Segovia MD IM DIAGNOSTIC IMAGING ORDERABLE S Final Result * (ABNORMAL) POC Glucose Screen - Fingerstick (10/29/2024 11:50 AM CDT) Only the most recent of13 resultswithin the time period is included. Glucose Screen 113(H) 70 - 99 mg/dL 10/29/2024 11:52 AM CDT [facility] POC Sample Type Capillary 10/29/2024 11:52 AM CDT [facility] Blood 10/29/2024 11:5 0 AM CDT 10/29/2024 11:52 AM CDT Narrative [facility] - 10/29/2024 11:52 AM CDT [...] test results by core lab methodology. us Lars Odonnell MD POCT ORDERABLES - DEVICE Final Result Performing Organization Address [facility] Co de Phone Number [facility] Unless otherwise noted, all lab tests performed by: Division of Pathology and Laboratory Medicine [address] [place] [phone] * (ABNORMAL) Hemoglobin A1c (10/28/2024 11:01 AM CDT) Only the most recent of2 resultswithin the time period is included. Hemoglobin A1c 6.3(H) 4.3 - 5.6 % 10/28/2024 7:05 PM CDT [facility] Blood Peripheral blood specimen / Unknown Venipuncture / Unknown 10/28/2024 11:01 AM CDT 10/28/2024 11:02 AM CDT Narrative [facility] - 10/28/2024 7:05 PM CDT HbA1c values >=6.5% are diagnostic of diabetes mellitus. Diagnosis should be confirmed by repeat testing. Therapeutic Action suggested: >8.0% HbA1c; Goal of therapy: <7.0% HbA1c Bessy Gaming APRN LAB BLOOD ORDERABLES Fin al Result [facility] Unless otherwise noted, all lab tests performed by: Division of Pathology and Laboratory Medicine [address] [place] [id number] * EKG, 12-Lead (Portable) (10/28/2024) Only the most recent of3 resultswithin the time period is included. us John Forte MD ECG ORDERABLES Final Result [facility] * CT Chest Abdomen Pelvis [...] that are unexpected and potentially actionable. Mohan YOUNG CT ORDERABLES Final Resu lt * X-ray [...] spine. IMPRESSION: No evidence of bowel obstruction. Mohan Torres MD [facility] DI[facility]NOSTIC IMAGING ORDER YASHIRA Final Result * (ABNORMAL) POC Chem 8 without Hemoglobin and Hematocrit (10/25/2024 8:26 AM CDT) POC Sodium 136(L) 138 - 146 mmol/L 10/25/2024 8:30 AM [facility] POC Potassium 4.9 3.5 - 4.9 mmol/L 10/25/2024 8:30 AM [facility] POC Chloride 101 98 - 109 mmol/L 10/25/2024 8:30 AM [facility] POC VTCO2 25 24 - 29 mmol/L 10/25/2024 8:30 AM [facility] POC Anion Gap 16 10 - 20 mmol/L 10/25/2024 8:30 AM [facility] POC BUN 16 8 - 26 mg/dL 10/25/2024 8:30 AM [facility] POC Creatinine 0.8 0.6 - 1.3 mg/dL 10/25/2024 8:30 AM [facility] Comment:Medications, especia lly hydroxyurea or supplements, such as ascorbate, can interfere with test results causing a falsely and significantly higher result than expected. If a problem is suspected with a patient's result, a sample should be sent to the laboratory for confirmatory testing. POC I Glu 147(H) 70 - 99 mg/dL 10/25/2024 8:30 AM [facility] Comment:Medications, especia lly hydroxyurea or supplements, such as ascorbate, can interfere with test results causing a falsely and significantly higher result than expected. If a problem is suspected with a patient's result, a sample should be sent to the laboratory for confirmatory testing. POC Ionized Calcium 1.20 1.12 - 1.32 mmol/L 10/25/2024 8:30 AM [facility] POC Sample Type Venous 8:30 AM [facility] POC eGFR 101 >=60 mL/min/1.7 3 sq. m 10/25/2024 8:30 AM [facility] Comment: The eGFRcr is [...] AM CDT 10/25/2024 8:30 AM CDT Narrative [facility] - 10/25/2024 8:30 AM CDT [...] measure analyte concentration by an electrochemical assay. Mohan Torres MD POINT OF CARE TEST ORDERABLE S Final Result [facility] Unless otherwise noted, all lab tests performed by: Division of Pathology and Laboratory Medicine [address] [place] [id number] * Phosphorus Level (10/25/2024 8:15 AM CDT) Only the most recent of10 resultswithin the time period is included. Phosphorus Level 2.7 2.5 - 4.5 mg/dL 10/25/2024 8:55 AM CDT [facility] Blood Peripheral blood specimen / Unknown Port / Unknown 10/25/2024 8:15 AM CDT 10/25/2024 8:22 AM CDT Mohan Torres MD LAB BLOOD ORDERABLES Final R esult [facility] Unless otherwise noted, all lab tests performed by: Division of Pathology and Laboratory Medicine [address] [place] [id number] * Magnesium Level (10/25/2024 8:15 AM CDT) Only the most recent of10 resultswithin the time period is included. Magnesium Level 2.0 1.6 - 2.6 mg/dL 10/25/2024 8:55 AM CDT [facility] Blood Peripheral blood specimen / Unknown Port / Unknown 10/25/2024 8:15 AM CDT 10/25/2024 8:22 AM CDT Mohan Torres MD LAB BLOOD ORDERABLES Final R esult [facility] Unless otherwise noted, all lab tests performed by: Division of Pathology and Laboratory Medicine [address] [place] [phone] * (ABNORMAL) Lipase Level (10/25/2024 8:15 AM CDT) Only the most recent of3 resultswithin the time period is included. Lipase Level 202(H) 13 - 60 U/L 10/27/2024 7:12 AM CDT [facility] Blood Peripheral blood specimen / Unknown Port / Unknown 10/25/2024 8:15 AM CDT 10/25/2024 8:22 AM CDT Narrative [facility] - 10/27/2024 7:12 AM CDT Reference range established based on adult population us Gillian Gomez PA-C LAB BLOOD ORDERABLES Final Result [facility] Unless otherwise noted, all lab tests performed by: Division of Pathology and Laboratory Medicine [address] [place] [id number] * LDH (10/25/2024 8:15 AM CDT) Only the most recent of10 resultswithin the time period is included. LDH 186 135 - 225 U/L 10/25/2024 8:55 AM CDT [facility] Blood Peripheral blood specimen / Unknown Port / Unknown 10/25/2024 8:15 AM CDT 10/25/2024 8:22 AM CDT Narrative [facility] - 10/25/2024 8:55 AM CDT Results greater than 1651 U/L may not be reliable due to matrix effect with extended dilution as it exceeds the rail car maintenance mechanic's recommended limit. Caution should be exercised when interpreting such values and done in conjunction with clinical context. Mohan Torres MD LAB BLOOD ORDERABLES Final R esult [facility] Unless otherwise noted, all lab tests performed by: Division of Pathology and Laboratory Medicine [address] [place] [phone] * (ABNORMAL) Amylase Level (10/25/2024 8:15 AM CDT) Only the most recent of3 resultswithin the time period is included. Amylase Level 107(H) 28 - 100 U/L 10/27/2024 7:12 AM CDT [facility] Blood Peripheral blood specimen / Unknown Port / Unknown 10/25/2024 8:15 AM CDT 10/25/2024 8:22 AM CDT Gillian Gomez PA-C LAB BLOOD ORDERABLES Final Result Performing Organization Address City/[facility]/ZIP Co de Phone Number [facility] Unless otherwise noted, all lab tests performed by: Division of Pathology and Laboratory Medicine [address] [place] [id number] * Fractionated Bilirubin (10/25/2024 7:40 AM CDT) Only the most recent of2 resultswithin the time period is included. Bilirubin Direct 10/26/19 8:50 AM CDT [facility] Comment: Direct and indirect bilirubin will not be reported when Total bilirubin result is <0.3 mg/dL Indocyanine Green (ICG) may cause falsely elevated bilirubin results. Total and direct bilirubin must not be measured from samples containing indocyanine green. Bilirubin Indirect 2024 8:50 AM CDT [facility] Comment:Direct and indirect bilirubin will not be reported when Total bilirubin result is <0.3 mg/dL Bilirubin Total <0.3 0.0 - 1.2 mg/dL 10/25/2024 8:50 AM CDT [facility] Comment: Direct and indirect [...] 7:40 AM CDT 10/25/2024 8:14 AM CDT us Mohan Torres MD LAB BLOOD ORDERABLES Final R esult [facility] Unless otherwise noted, all lab tests performed by: Division of Pathology and Laboratory Medicine [address] [place] [id number] * CEA (10/25/2024 7:40 AM CDT) Only the most recent of8 resultswithin the time period is included. Carcinoembryonic Antigen 3.3 <=3.8 ng/mL 10/25/2024 9:14 AM CDT [facility] Blood Venous blood specimen / Unknown Port / Unknown 10/25/2024 7:40 AM CDT 10/25/2024 8:14 AM CDT Narrative [facility] - 10/25/2024 9:14 AM CDT Reference Ranges (age 20-69 years): Non-smoker: <= 3.8 ng/mL Smoker: <= 5.5 ng/mL This test is measured by electrochemiluminescence immunoassay on Cornel[employer] Nikki immunoassay analyzers. Results obtained in different methods are not interchangeable. us Gillian Gomez PA-C LAB BLOOD ORDERABLES Final Result Performing Organization Address City/[facility] de Phone Number [facility] Unless otherwise noted, all lab tests performed by: Division of Pathology and Laboratory Medicine [address] [place] [phone] * Research Protocol [id number] (07/15/2024 10:01 AM AMUSEMENT MACHINE MECHANIC) Only the most recent of2 resultswithin the time period is included. Pathologist [facility] Research Protocol Specimen Specimen Collected, Ready for Pickup. 07/15/2024 12:00 PM AMUSEMENT MACHINE MECHANIC [facility] Blood Venipuncture / Unknown 07/15/2024 10:01 AM AMUSEMENT MACHINE MECHANIC 07/15/2024 10:10 AM AMUSEMENT MACHINE MECHANIC Marianela Hutchinson MD [facility] Z CODES Final Re sult Performing Organization Address [facility] Co de Phone Number [facility] Unless otherwise noted, all lab tests performed by: Division of Pathology and Laboratory Medicine [address] [place] [phone] * IHC Workup (07/07/2024 12:29 PM AMUSEMENT MACHINE MECHANIC) Tissue 07/07/2024 12:2 9 PM AMUSEMENT MACHINE MECHANIC 07/07/2024 12:29 PM AMUSEMENT MACHINE MECHANIC Gillian Gomez PA-C [facility] BIOMARKER ORDERABLE S Final Result Performing Organization Address [facility] de Phone Number [facility] [address] [address], [place] * Pathology Biopsy Interpretation (06/30/2024 12:51 PM AMUSEMENT MACHINE MECHANIC) Only the most recent of2 resultswithin the time period is included. Addendum 1 By immunohistochemistry, approximately 10% of the tumor cells show weakly to moderately cytoplasmic staining for claudin 18. By immunohistochemistry the combined positive score (CPS) for PD-L1 is <1. 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 07/10/2024 8:47 AM [facility] at 1826 AMUSEMENT MACHINE MECHANIC Gross Description A: Esophagus, lower esophageal ulcer at 37cm: Multiple soft light castillo tissue fragments, 0.7 x 0.6 x 0.1 cm in aggregate, entirely submitted in A1. ET 07/10/2024 8:47 AM [facility] Biomarker Block(s) Block for biomarker testing: A1 07/10/2024 8:47 AM [facility] Disclaimer "Some tests reported here may have been developed and performance characteristics determined by [facility] Pathology and Laboratory Medicine. These tests have not been specifically cleared or approved by the U.S. Food and Drug Administration. If applicable, controls were reviewed and showed appropriate reactivity." 07/10/2024 8:47 AM [facility] Tissue (Esophagus) 06/30/2024 12:51 PM AMUSEMENT MACHINE MECHANIC 06/30/2024 2:51 PM AMUSEMENT MACHINE MECHANIC us Brandon Galo MD LAB PATHOLOGY ORDERA ANDERSS Edited Result - Final [address] [address], * (ABNORMAL) POC Chem 8 (06/30/2024 11:10 AM AMUSEMENT MACHINE MECHANIC) Only the most recent of2 resultswithin the time period is included. POC Sodium 136(L) 138 - 146 mmol/L 06/30/2024 11:13 AM [facility] POC Potassium 4.5 3.5 - 4.9 mmol/L 06/30/2024 11:13 AM [facility] POC Chloride 100 98 - 109 mmol/L 06/30/2024 11:13 AM [facility] POC VTCO2 27 24 - 29 mmol/L 06/30/2024 11:13 AM [facility] POC Anion Gap 14 10 - 20 mmol/L 06/30/2024 11:13 AM [facility] POC BUN 30(H) 8 - 26 mg/dL 06/30/2024 11:13 AM [facility] POC Creatinine 1.1 0.6 - 1.3 mg/dL 06/30/2024 11:13 AM [facility] Comment:Medications, especia lly hydroxyurea or supplements, such as ascorbate, can interfere with test results causing a falsely and significantly higher result than expected. If a problem is suspected with a patient's result, a sample should be sent to the laboratory for confirmatory testing. POC I Glu 182(H) 70 - 99 mg/dL 06/30/2024 11:13 AM [facility] Comment:Medications, especia lly hydroxyurea or supplements, such as ascorbate, can interfere with test results causing a falsely and significantly higher result than expected. If a problem is suspected with a patient's result, a sample should be sent to the laboratory for confirmatory testing. POC Ionized Calcium 1.26 1.12 - 1.32 mmol/L 06/30/2024 11:13 AM [facility] POC Hct 39.0 38.0 - 51.0 % 06/30/2024 11:13 AM [facility] POC Hgb 13.3 12.0 - 17.0 gm/dL 06/30/2024 11:13 AM [facility] Comment:Hematocrit values fr om the iSTAT [...] standard. POC Sample Type Venous 11:13 AM [facility] POC eGFR 77 >=60 mL/min/1.7 3 sq. m 06/30/2024 11:13 AM [facility] Comment: The eGFRcr is calculated [...] for CKD. Blood 06/30/2024 11:1 0 AM AMUSEMENT MACHINE MECHANIC 06/30/2024 11:13 AM AMUSEMENT MACHINE MECHANIC Narrative [facility] - 06/30/2024 11:13 AM AMUSEMENT MACHINE MECHANIC Method description: The i-STAT is an analyzer [...] DE VICE Final Result Performing Organization Address [facility] Co de Phone Number [facility] Unless otherwise noted, all lab tests performed by: Division of Pathology and Laboratory Medicine [address] [place] [id number] * EKG, 12-Lead (Scheduled) (06/29/2024) Only the most recent of2 resultswithin the time period is included. Mary Kay Santamaria APRN ECG ORDERABLES Final R esult Performing Organization Address [facility] Co de Phone Number [facility] I[facility]G * PETCT F18 FDG (Fluorodeoxyglucose) with contrast (06/20/2024 12:42 PM AMUSEMENT MACHINE MECHANIC) Anatomical Region Laterality Modality Whole Body Positron Emissio n Tomography (PET) 06/20/2024 3:10 PM AMUSEMENT MACHINE MECHANIC Impressions 06/20/2024 4:38 PM AMUSEMENT MACHINE MECHANIC Biopsy-proven malignancy in the region of the [...] and potentially actionable. Narrative 06/20/2024 4:38 PM AMUSEMENT MACHINE MECHANIC FULL RESULT: Examination: 18F-FDG-PET/CT with contrast, 06/20/2024 [...] * Transferrin with TIBC (06/01/2024 11:10 AM AMUSEMENT MACHINE MECHANIC) Transferrin 211 200 - 360 mg/dL 06/01/2024 12:15 PM AMUSEMENT MACHINE MECHANIC [facility] Total Iron Binding Capacity 295 250 - 450 mcg/dL 06/01/2024 12:15 PM AMUSEMENT MACHINE MECHANIC [facility] Blood Peripheral blood specimen / Unknown Venipuncture / Unknown 06/01/2024 11:10 AM AMUSEMENT MACHINE MECHANIC 06/01/2024 11:23 AM AMUSEMENT MACHINE MECHANIC Marianela Hutchinson MD LAB BLOOD ORDERABLES Final Re sult [facility] Unless otherwise noted, all lab tests performed by: Division of Pathology and Laboratory Medicine [address] [place] [id number] * (ABNORMAL) Iron Level (06/01/2024 11:10 AM AMUSEMENT MACHINE MECHANIC) Iron Level 38(L) 59 - 158 mcg/dL 06/01/2024 12:15 PM AMUSEMENT MACHINE MECHANIC [facility] Is patient fasting? No 06/01/2024 12:15 PM AMUSEMENT MACHINE MECHANIC [facility] Blood Peripheral blood specimen / Unknown Venipuncture / Unknown 06/01/2024 11:10 AM AMUSEMENT MACHINE MECHANIC 06/01/2024 11:23 AM AMUSEMENT MACHINE MECHANIC us Marianela Hutchinson MD LAB BLOOD ORDERABLES Final Re sult Performing Organization Address [facility] Co de Phone Number [facility] Unless otherwise noted, all lab tests performed by: Division of Pathology and Laboratory Medicine [address] [place] [address] Unless otherwise noted, all lab tests performed by: Division of Pathology and Laboratory Medicine [address] [place] [address] * Ferritin Level (06/01/2024 11:10 AM AMUSEMENT MACHINE MECHANIC) Ferritin Level 59 30 - 400 ng/mL 06/01/2024 12:15 PM AMUSEMENT MACHINE MECHANIC [facility] Blood Peripheral blood specimen / Unknown Venipuncture / Unknown 06/01/2024 11:10 AM AMUSEMENT MACHINE MECHANIC 06/01/2024 11:23 AM AMUSEMENT MACHINE MECHANIC Narrative [facility] - 06/01/2024 12:15 PM AMUSEMENT MACHINE MECHANIC Reference range established for age 20 - 60 years us Marianela Hutchinson MD LAB BLOOD ORDERABLES Final Re sult Performing Organization Address City/[facility]/ZIP Co de Phone Number [facility] Unless otherwise noted, all lab tests performed by: Division of Pathology and Laboratory Medicine [address] [place] [id number] * Tip Verification Central Vascular Access Device (04/15/2024 3:50 PM AMUSEMENT MACHINE MECHANIC) Narrative John Fong MD - 04/15/2024 3:50 PM AMUSEMENT MACHINE MECHANIC John Fong MD 04/15/2024 3:50 PM Central Vascular Access Device Tip Verification Performed by: oJhn Fong MD Authorized by: John Fong MD CVAD Properties Date device placed: 04/15/2024 Device placement location: [facility] Catheter Type: Implanted venous port Catheter lumen: Single lumen Vein location: Internal jugular vein Laterality: Right Tip in good position and cleared for infusion us John Fong MD IV THERAPY ORDERABLES Final Re sult * XR Chest 1 View Portable (04/15/2024 2:45 PM AMUSEMENT MACHINE MECHANIC) Anatomical Region Laterality Modality Chest Digital Radiogra phy 04/15/2024 2:50 PM AMUSEMENT MACHINE MECHANIC Impressions 04/15/2024 2:53 PM AMUSEMENT MACHINE MECHANIC 1. Right infusion port catheter terminates over [...] and potentially actionable. Narrative 04/15/2024 2:53 PM AMUSEMENT MACHINE MECHANIC FULL RESULT: Examination: XR CHEST 1 VW [...] unexpected and potentially actionable. John Fong MD IM DIAGNOSTIC IMAGING ORDERAB LES Final Result * Cytology Non-Physical Therapy Aides Teacher Interpretation (04/15/2024 12:33 PM AMUSEMENT MACHINE MECHANIC) Gross Description 4 Pap Stain Slides 750 ml. clear yellow fluid Specimen concentrated by cytocentrifugation technique 4 4:07 PM AMUSEMENT MACHINE MECHANIC [facility] Major Classification [facility]/benign 4 4:07 PM AMUSEMENT MACHINE MECHANIC [facility] at 1607 AMUSEMENT MACHINE MECHANIC Diagnosis Peritoneal washing: No metastatic carcinoma identified Reactive mesothelial cells and histiocytes 4 4:07 PM AMUSEMENT MACHINE MECHANIC [facility] at 1607 AMUSEMENT MACHINE MECHANIC Retained/Biomark er Testing SR:4S 4 4:07 PM AMUSEMENT MACHINE MECHANIC [facility] Informational Points Some tests reported here may have been developed and performance characteristics determined by [facility] Pathology and Laboratory Medicine. These tests have not been specifically cleared or approved by the U.S. Food and Drug Administration. 4 4:07 PM AMUSEMENT MACHINE MECHANIC [facility] Washing (Peritoneal Washing) 04/15/2024 12:33 PM AMUSEMENT MACHINE MECHANIC 04/15/2024 1:10 PM AMUSEMENT MACHINE MECHANIC John Fong MD LAB CYTOLOGY ORDERABLES Final Result Performing Organization Address [facility] de Phone Number [address] [address], * Pathology Surgical Interpretation (04/15/2024 12:13 PM AMUSEMENT MACHINE MECHANIC) Submitted Clinical History Adenocarcinoma of stomach [C16.9] 04/20/2024 8:13 PM AMUSEMENT MACHINE MECHANIC [facility] Diagnosis A. Falciform ligament, resection: Fibroadipose tissue, no tumor present 04/20/2024 8:13 PM AMUSEMENT MACHINE MECHANIC [facility] at 2013 AMUSEMENT MACHINE MECHANIC Gross Description A: Falciform ligament, falciorm ligament biopsy....or 16: Consists of a fragment of castillo-yellow, lobulated fat (0.8 x 0.6 x 0.5 cm) entirely submitted in cassette A1. EF 04/20/2024 8:13 PM [facility] Disclaimer "Some tests reported here may have been developed and performance characteristics determined by [facility] Pathology and Laboratory Medicine. These tests have not been specifically cleared or approved by the U.S. Food and Drug Administration. If applicable, controls were reviewed and showed appropriate reactivity." 04/20/2024 8:13 PM AMUSEMENT MACHINE MECHANIC [facility] Tissue (Falciform Ligament) 04/15/2024 12:13 PM AMUSEMENT MACHINE MECHANIC 04/15/2024 1:18 PM AMUSEMENT MACHINE MECHANIC John Fong MD LAB PATHOLOGY ORDERABLES Final Result Performing Organization Address City/[facility]/ZIP Co de Phone Number [address] [address], [place] * [place] Central Venous Place Exchange (04/15/2024 11:40 AM AMUSEMENT MACHINE MECHANIC) Narrative Systemgenerated, Documentation - 04/15/2024 11:40 AM AMUSEMENT MACHINE MECHANIC This procedure requires no interpretation from the radiologist. us John Fnog MD IMG FLUOROSCOPY ORDERABLES Fin al Result * CT Abdomen Pelvis with IV Contrast (04/12/2024 11:18 AM AMUSEMENT MACHINE MECHANIC) Anatomical Region Laterality Modality Abdomen, Pelvis Computed Tomogra phy 04/12/2024 11:5 2 AM AMUSEMENT MACHINE MECHANIC Impressions 04/12/2024 12:11 PM AMUSEMENT MACHINE MECHANIC Wall thickening and slight mucosal irregularity of [...] and potentially actionable. Narrative 04/12/2024 12:11 PM AMUSEMENT MACHINE MECHANIC FULL RESULT: Examination: CT ABDOMEN PELVIS W [...] Final Result * TSH (04/09/2024 11:09 AM AMUSEMENT MACHINE MECHANIC) Pathologist [facility] Thyroid Stimulating Hormone 1.53 0.27 - 4.20 mcunit/mL 04/09/2024 12:23 PM AMUSEMENT MACHINE MECHANIC [facility] Blood Peripheral blood specimen / Unknown Venipuncture / Unknown 04/09/2024 11:09 AM AMUSEMENT MACHINE MECHANIC 04/09/2024 11:19 AM AMUSEMENT MACHINE MECHANIC Ceci Nicholson MD LAB BLOOD ORDERABLES Final Resu lt [facility] Unless otherwise noted, all lab tests performed by: Division of Pathology and Laboratory Medicine [address] [place] [id number] * Pathology Outside Interpretation (04/02/2024) Pathologist [facility] Materials Received Accession#, Stained, Block, Unstained Collected Received A. [id number], 20 SS, 0 BLOCKS, 0 USS 04/02/2024 04/22/2024 04/22/2024 5:36 PM AMUSEMENT MACHINE MECHANIC [facility] Diagnosis Outside ([id number], 20 SS, 0 BLOCKS, 0 USS, collected [...] FEATURES. See comment. FY/ISAURO 04/22/2024 5:36 PM [facility] [employer] at 1736 AMUSEMENT MACHINE MECHANIC Comment Part A. There is no evidence of malignancy on H&E and immunohistochemical stain for Cytokeratin AE1/AE3. Of note, the biopsy may not be sales representative publications of the entire lesion. Please correlate with [...] immunohistochemistry: Negative (Score: 0) 04/22/2024 5:36 PM [facility] [employer] Biomarker Block(s) Block for biomarker testing: C1 Normal block: N/A 04/22/2024 5:36 PM [facility] Disclaimer "Some tests reported here may have been developed and performance characteristics determined by [facility] Pathology and Laboratory Medicine. These tests have not been specifically cleared or approved by the U.S. Food and Drug Administration. If applicable, controls were reviewed and showed appropriate reactivity." 04/22/2024 5:36 PM [facility] Tissue 04/02/2024 04/22/2024 6:4 0 AM AMUSEMENT MACHINE MECHANIC us Sybil Edmonds MD LAB PATHOLOGY ORDERABLES Final R esult [facility] [place] [address], [place] * OSI CT Abdomen and Pelvis (04/01/2024 8:21 AM AMUSEMENT MACHINE MECHANIC) Only the most recent of2 resultswithin the time period is included. Narrative Systemgenerated, Documentation - 04/27/2024 8:22 AM AMUSEMENT MACHINE MECHANIC Study acquired at another institution. For comparison only. No MD Pernell originated interpretation requested or available. [facility] Regan Zhu DO IMG OUTSIDE IMAGE ORDERAB LES Final Result * OSI CT CHEST ABDOMEN PELVIS (03/23/2024 7:37 PM AMUSEMENT MACHINE MECHANIC) Narrative Systemgenerated, Documentation - 04/09/2024 7:37 PM AMUSEMENT MACHINE MECHANIC Study acquired at another institution. For comparison only. No MD Pernell originated interpretation requested or available. Margoth Souza MD IMG OUTSIDE IMAGE ORDERABLES Fin al Result * OSI Chest (03/23/2024 7:37 PM AMUSEMENT MACHINE MECHANIC) Only the most recent of4 resultswithin the time period is included. Narrative Systemgenerated, Documentation - 04/09/2024 7:37 PM AMUSEMENT MACHINE MECHANIC Study acquired at another institution. For comparison only. No MD Pernell originated interpretation requested or available. Margoth Souza MD IMG OUTSIDE IMAGE ORDERABLES Fin al Result * OSI CT Chest (03/22/2024 8:21 AM AMUSEMENT MACHINE MECHANIC) Narrative Systemgenerated, Documentation - 04/27/2024 8:21 AM AMUSEMENT MACHINE MECHANIC Study acquired at another institution. For comparison only. No MD Gimenez originated interpretation requested or available. 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 PCP - General Gastrointestinal Medical Oncology 05/04/24 Mary Jane Cassidy MD [address] [place] [phone] [email or web address] Consulting Physician Endocrinology 12/09/23 Barry He MD [address] [place] [phone] [email or web address] Consulting Physician Internal Medicine 12/23/23 Patience Hunt MD [address] [place] [phone] [email or web address] Consulting Physician Endocrinology 12/31/23 Marianela Hutchinson MD [address] [place] [phone] [email or web address] Consulting Physician Gastrointestinal Medical Oncology 04/13/24 Margoth Souza MD [address] [place] [phone] [email or web address] Consulting Physician Urology 04/15/24 Ceci Nicholson MD [address] [place] [phone] [email or web address] Consulting Physician Internal Medicine 04/09/24 Sigifredo Davenprot MD [address] [place] [phone] [email or web address] Consulting Physician Internal Medicine 06/29/24 Abilio Ng PA-C [address] [place] [address] [phone] Physician It Help Desk Manager Interventional Radiology 10/02/23 Shira Segovia MD [address] [place] [address] [phone] [email or web address] Consulting Physician Internal Medicine 10/30/24 Ancelmo Love MD [address] [place] [phone] General Surgery 01/05/25
[2025-01-07] MEDS ORDERED: METOCLOPRAMIDE 10 MG/2mL INJ ONE (09:38)
[2025-01-07] MEDS ORDERED: NA CHLORIDE 0.9% 1,000 ML ONE (09:39)
[2025-01-07] MEDS ORDERED: FAMOTIDINE 20 MG/2 ML VIAL IV ONE (09:39)
[2025-01-07] MEDS ORDERED: ONDANSETRON 4 MG/2 ML VIAL ONE (09:39)
[2025-01-07 10:05] LABS: Absolute Lymphocytes (CBC) 1.1 K/uL (0.7-4.9); Hematocrit 33.1 % (39.6-49.0); Hemoglobin 10.9 g/dL (13.6-17.9); MCH 25.5 pg (27.0-35.0); MCHC 33.1 g/dL (32.0-36.0); MCV 77.1 fL (80-100); MPV 7.0 fL (7.6-11.3); Nucleated RBC Absolute Count 0.0 (0-0); Nucleated Red Blood Cells % 0.0 % (0-0); RBC Red Blood Cell Count 4.29 M/uL (4.33-5.43); White Blood Count 8.40 thou/uL (4.3-10.9)
[2025-01-07 10:28] LABS: ALT/SGPT 15.0 U/L (16-61); Albumin 2.8 g/dL (3.4-5.0); Albumin/Globulin Ratio 0.5 (1.1-1.8); Alkaline Phosphatase 118.0 U/L (45-117); Anion Gap 11.3 mEq/L (5.0-15.0); BUN Blood Urea Nitrogen 38.0 mg/dL (7-18); Globulin 5.6 g/dL (2.3-3.5); Glucose Level 190.0 mg/dL (74-106); Lipase 250.0 U/L (13-75)
[2025-01-07 10:30] LABS: AST/SGOT 11.0 U/L (15-37); Potassium 4.3 mEq/L (3.5-5.1)
--- NOTE | 2025-01-07 11:11 | RAD REPORT ---
EXAMINATION: CT ABDOMEN AND PELVIS WITHOUT CONTRAST CLINICAL INDICATION: Abdominal pain TECHNIQUE: CT abdomen and pelvis was performed, as per department protocol. IV contrast and oral was not administered.Axial, sagittal and coronal reconstructions were obtained. One or more of the following dose reduction techniques were used: Automated exposure control, adjustment of the mA and/o r kV according to the patient size, and/or iterative reconstruction. Unless otherwise specified, incidental findings do not require dedicated imaging follow-up. [id number]. COMPARISON: November 2024 FINDINGS: The lack of intravenous and oral contrast limits evaluation of solid organs, vessels and bowel. The liver, spleen, pancreas, and adrenals appear grossly normal. Mild right hydronephrosis. A ureteral calculus not seen. Small amount of ascites. Moderate amount stool throughout the colon. No evidence of diverticulitis. Wall thickening mid transv erse colon Chronic compression deformities lower thoracic and lumbar spine. IMPRESSION: Mild right hydronephrosis. An obstructing ureteral calculus not seen Wall thickening mid transverse colon could be secondary to incomplete distention, mass or inflammatio n.
--- NOTE | 2025-01-07 11:23 | ER ---
Nurse's Notes [facility] Name: Zeke Mackay Age: 59 yrs Sex: Male : 1965 Arrival Date: 01/07/2025 Time: 09:01 Bed 3 Private MD: Diagnosis: Nausea;Vomiting;Type 1 diabetes mellitus with hyperglycemia Presentation: 01/07 09:29 Chief complaint: Patient states: Nausea that began this morning. Pt reports he took his ss promethazine this morning and it did not help. Pt states, "y'all usually give me Reglan and it helps.". Coronavirus screen: Client denies travel out of the [place] in the last 14 days. Ebola Screen: Patient denies exposure to infectious person. Patient denies travel to an Ebola-affected area in the 21 days before illness onset. Initial Sepsis Screen: Does the patient meet any 2 criteria? No. Patient's initial sepsis screen is negative. Does the patient have a suspected source of infection? No. Patient's initial sepsis screen is negative. Risk Assessment: Do you want to hurt yourself or someone else? Patient reports no desire to harm self or others. Onset of symptoms was January 07, 2025. 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 - Social history:: Smoking status: Patient denies any tobacco usage or history of. Patient uses street drugs, marijuana. Assessment: 11:15 Reassessment: Patient appears in no apparent distress at this time. Patient and/or db family updated on plan of care and expected duration. Pain level reassessed. Patient is alert, oriented x 3, equal unlabored respirations, skin warm/dry/pink. Reassessment: STATES IS READY TO GO HOME. General: Appears in no apparent distress. comfortable, Behavior is calm, cooperative. Vital Signs: 09:29 BP 177 / 79; Pulse 71; Resp 15; Temp 97.3(O); Pulse Ox 100% on R/A; Weight 77.11 kg; ss Height 6 ft. 2 in. ; Pain 5/10; 10:15 BP 182 / 66; Pulse 80; Resp 16; Pulse Ox 100% on R/A; db 11:15 BP 170 / 66; Pulse 79; Resp 16; Pulse Ox 100% on R/A; db 09:29 Body Mass Index 21.83 (77.11 kg, 187.96 cm) ss 09:29 Pain Scale: Adult ss [place] Coma Score: 09:51 Eye Response: spontaneous(4). Motor Response: obeys commands(6). Verbal Response: shandra oriented(5). Total: 15. ED Course: 09:03 Patient arrived in ED. mr 09:08 Rashi Gimenez MD is Attending Physician. shandra 09:21 John Parrish, RN is Primary Nurse. bp 09:31 Triage completed. ss 09:31 Arm band placed on right wrist. ss 09:56 Initial lab(s) drawn, by al, sent to lab. Inserted saline lock: 22 gauge in right bp forearm, using aseptic technique. Blood collected. Flushed with 10 mL NS. 10:58 CT Abd/Pelvis - Without Contrast In Process Unspecified. EDMS 11:38 No provider procedures requiring assistance completed. IV discontinued, intact, ss bleeding controlled, No redness/swelling at site. Pressure dressing applied. Administered Medications: 09:55 Drug: Famotidine IVP 20 mg IVP once; dilute with 10 mL 0.9% NaCl; give over 2 minutes bp Route: IVP; Site: right forearm; 09:55 Drug: Ondansetron IVP 8 mg IVP once; over 2 minutes Route: IVP; Site: right forearm; bp 09:55 Drug: NS 0.9% IV 1000 ml IV at 1 bolus Per protocol; to be given as a bolus over 60 bp minutes Route: IV; Rate: 1 bolus; Site: right forearm; 09:55 Drug: metoCLOPramide IVP 10 mg IVP once; over 1 to 2 minutes Route: IVP; Site: right bp forearm; Outcome: 11:22 Discharge ordered by . shandra 11:38 Discharged to home ambulatory, 11:38 Condition: good 11:38 Discharge instructions given to patient, Instructed on discharge instructions, follow up and referral plans. medication usage, Demonstrated understanding of instructions, follow-up care, medications, Prescriptions given X 2, 11:39 Patient left the ED. Signatures: Dispatcher [employer] EDRashi López MD MD cha Rivera, Hollie, Reg Reg mr Ruchi Navarrete, ARTURO RN John Parrish RN RN bp Benton, Danielle, RN RN db Corrections: (The following items were deleted from the chart) :31 09:31 PSHx: Nephrectomy; [facility]
--- NOTE | 2025-01-07 11:23 | EDPHYS ---
Physician Documentation [facility] Name: Zeke Mackay Age: 59 yrs Sex: Male : 1965 Arrival Date: 01/07/2025 Time: 09:01 Bed 3 Private MD: RAVIN Physician Rashi Gimenez HPI: 01/07 09:50 This 59 yrs old Male presents to ER via Wheelchair with complaints of Nausea. shandra 09:50 The patient presents to the emergency department with nausea, vomiting, that is shandra intermittent. Onset: The symptoms/episode began/occurred 2 day(s) ago. Possible causes: unknown. The symptoms are aggravated by movement, pressure, food , The symptoms are alleviated by nothing. remaining still. Associated signs and symptoms: Pertinent positives: anorexia, nausea, vomiting. Severity of symptoms: At their worst the symptoms were moderate in the emergency department the symptoms are unchanged. The patient has experienced similar episodes in the past, multiple times. 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 - Social history:: Smoking status: Patient denies any tobacco usage or history of. Patient uses street drugs, marijuana. ROS: 09:51 Constitutional: Negative for fever, chills, and weight loss, Eyes: Negative for injury, shandra pain, redness, and discharge, ENT: Negative for injury, pain, and discharge, Neck: Negative for injury, pain, and swelling, Cardiovascular: Negative for chest pain, palpitations, and edema, Respiratory: Negative for shortness of breath, cough, wheezing, and pleuritic chest pain, Back: Negative for injury and pain, : Negative for injury, bleeding, discharge, and swelling, MS/Extremity: Negative for injury and deformity, Skin: Negative for injury, rash, and discoloration, Neuro: Negative for headache, weakness, numbness, tingling, and seizure, Psych: Negative for depression, anxiety, suicide ideation, homicidal ideation, and hallucinations, Allergy/Immunology: Negative for hives, rash, and allergies, Endocrine: Negative for neck swelling, polydipsia, polyuria, polyphagia, and marked weight changes, Hematologic/Lymphatic: Negative for swollen nodes, abnormal bleeding, and unusual bruising, 09:51 Abdomen/GI: Positive for nausea and vomiting, abdominal cramps, Exam: 09:51 Constitutional: This is a well developed, well nourished patient who is awake, alert, shandra and in no acute distress. Head/Face: Normocephalic, atraumatic. Eyes: Pupils equal round and reactive to light, extra-ocular motions intact. Lids and lashes normal. Conjunctiva and sclera are non-icteric and not injected. Cornea within normal limits. Periorbital areas with no swelling, redness, or edema. ENT: Nares patent. No nasal discharge, no septal abnormalities noted. Tympanic membranes are normal and external auditory canals are clear. Oropharynx with no redness, swelling, or masses, exudates, or evidence of obstruction, uvula midline. Mucous membranes moist. Neck: Trachea midline, no thyromegaly or masses palpated, and no cervical lymphadenopathy. Supple, full range of motion without nuchal rigidity, or vertebral point tenderness. No Meningismus. Chest/axilla: Normal chest wall appearance and motion. Nontender with no deformity. No lesions are appreciated. Cardiovascular: Regular rate and rhythm with a normal S1 and S2. No gallops, murmurs, or rubs. Normal PMI, no JVD. No pulse deficits. Respiratory: Lungs have equal breath sounds bilaterally, clear to auscultation and percussion. No rales, rhonchi or wheezes noted. No increased work of breathing, no retractions or nasal flaring. Back: No spinal tenderness. No costovertebral tenderness. Full range of motion. Male : Normal genitalia with no discharge or lesions. Skin: Warm, dry with normal turgor. Normal color with no rashes, no lesions, and no evidence of cellulitis. MS/ Extremity: Pulses equal, no cyanosis. Neurovascular intact. Full, normal range of motion., bilateral aka Neuro: Awake and alert, GCS 15, oriented to person, place, time, and situation. Cranial nerves II-XII grossly intact. Motor strength 5/5 in all extremities. Sensory grossly intact. Cerebellar exam normal. Normal gait. Psych: Awake, alert, with orientation to person, place and time. Behavior, mood, and affect are within normal limits. 09:51 Abdomen/GI: Inspection: abdomen appears normal, Bowel sounds: normal, Palpation: abdomen is soft and non-tender, in all quadrants, soft, Liver: no appreciated palpable abnormalities, Hernia: not appreciated, 09:51 Musculoskeletal/extremity: ROM: no acute changes, intact in all extremities, Circulation is intact in all extremities. Sensation intact. decreased sensation, Compartment Syndrome exam of affected extremity: is normal. DVT Exam: no swelling, negative Homans' sign noted on exam, no appreciated bluish discoloration, no erythema, no increased warmth, pain, tenderness, Vital Signs: 09:29 BP 177 / 79; Pulse 71; Resp 15; Temp 97.3(O); Pulse Ox 100% on R/A; Weight 77.11 kg; ss Height 6 ft. 2 in. ; Pain 5/10; 10:15 BP 182 / 66; Pulse 80; Resp 16; Pulse Ox 100% on R/A; db 11:15 BP 170 / 66; Pulse 79; Resp 16; Pulse Ox 100% on R/A; db 09:29 Body Mass Index 21.83 (77.11 kg, 187.96 cm) ss 09:29 Pain Scale: Adult ss Alicia Coma Score: 09:51 Eye Response: spontaneous(4). Motor Response: obeys commands(6). Verbal Response: shandra oriented(5). Total: 15. MDM: 09:08 Medical Screening Exam initiated shandra 09:52 Differential diagnosis: Nonspecific abd pain, gastritis, cholecystitis, pancreatitis, shandra appendicitis, diverticulitis, viral gastroenteritis, gastroenteritis, bowel obstruction, coronary artery disease, cholecystitis, Cholelithiasis, diverticulitis, gastritis, gastroesophageal reflux disease, GI Bleed, Hepatitis. Data reviewed: vital signs, nurses notes, lab test result(s), EKG. Consideration of Admission/Observation Escalation of care including admission/observation considered. I considered the following discharge prescriptions or medication management in the emergency department Medications were administered in the Emergency Department. See MAR. Independent interpretation of the following test(s) in the Emergency Department EKG: See my EKG interpretation above. Test considered but Not performed: Ultrasound NO ABD USG. 01/07 09:10 Order name: CBC with Diff; Complete Time: 10:10 [facility] 01/07 09:10 Order name: CMP; Complete Time: 10:42 [facility] 01/07 09:10 Order name: Lipase; Complete Time: 10:42 [facility] 01/07 10:44 Order name: CT Abd/Pelvis - Without Contrast [facility] 01/07 09:10 Order name: IV Saline Lock; Complete Time: 09:55 [facility] 01/07 09:10 Order name: Labs collected and sent; Complete Time: 09:55 [facility] Administered Medications: 09:55 Drug: Famotidine IVP 20 mg IVP once; dilute with 10 mL 0.9% NaCl; give over 2 minutes bp Route: IVP; Site: right forearm; 09:55 Drug: Ondansetron IVP 8 mg IVP once; over 2 minutes Route: IVP; Site: right forearm; bp 09:55 Drug: NS 0.9% IV 1000 ml IV at 1 bolus Per protocol; to be given as a bolus over 60 bp minutes Route: IV; Rate: 1 bolus; Site: right forearm; 09:55 Drug: metoCLOPramide IVP 10 mg IVP once; over 1 to 2 minutes Route: IVP; Site: right bp forearm; Disposition Summary: 01/07/25 11:22 Discharge Ordered Notes: Location: Home [facility] Problem: new [facility] Symptoms: have improved [facility] Condition: Stable [facility] Diagnosis - Nausea shandra - Vomiting shandra - Type 1 diabetes mellitus with hyperglycemia [facility] Followup: [facility] - With: Private Physician - When: 2 - 3 days - Reason: Recheck today's complaints, Continuance of care, Re-evaluation by your physician Discharge Instructions: - Discharge Summary Sheet [facility] - Hyperglycemia shandra - Nausea and Vomiting, Adult shandra - Nausea, Adult shandra - Nausea and Vomiting, Adult, [id number] [facility] - Blood Glucose Monitoring, Adult shandra - Diabetes Mellitus and Nutrition, Adult shandra - Vomiting, Adult [facility] Forms: - Medication Reconciliation Form [facility] - Antibiotic Education [facility] - Prescription Opioid Use [facility] - Patient Portal Instructions [facility] - Leadership Thank You Letter [facility] Prescriptions: - ondansetron 4 mg Oral Tablet,disintegrating - take 1 tablet ORAL route every 6 hours as needed for nausea and vomiting; 20 shandra tablet; Refills: 0, Product Selection Permitted - Reglan 10 mg Oral tablet - take 1 tablet ORAL route every 6 hours . take 30 minutes before meals and at [facility] bedtime; 30 tablet; Refills: 0, Product Selection Permitted Signatures: Dispatcher [employer] EDMS Rashi Gimenez MD MD cha Blanchard, Shelby, RN RN ss John Parrish, RN RN bp Corrections: (The following items were deleted from the chart) : 09:31 PSHx: Nephrectomy; [facility] 09:55 09:10 EKG - Nurse/Tech ordered. shandra bp 10:44 10:44 Abdomen Pelvis Wo Con+CT.RAD.BRZ ordered. EDMS EDMS
[2025-01-07 11:53] VITALS: O2SAT 100
[2025-01-07 11:54] VITALS: TEMP 97.3
[2025-01-07 11:56] VITALS: BP 170/66
== END 2025-01-07 11:39 | disposition home or self-care (01) ==
LOC: ER 09:01
DX: R11.2 Nausea with vomiting, unspecified (principal); E10.65 Type 1 diabetes mellitus with hyperglycemia; I10 Essential (primary) hypertension; F12.90 Cannabis use, unspecified, uncomplicated
CPT/HCPCS: 85025; 36415; 83690; 80053; 74176; 96375; 96374; 99284; J2765; J2405; J7030

== ENCOUNTER 2025-01-10 15:07 | Emergency (ER) | payer OTHER, BC ==
--- OUTSIDE RECORDS SUMMARY | 2025-01-10 15:16 | XMS REPORT | Clinical Summary ---
Author Name Unknown Organization [facility] [place] Address [address] [place] [address] Care Team Providers Care Inside Sales Assistant Name Role Phone Margoth Souza MD Primary Care Provider [phone] Mary Jane Cassidy MD Unavailable [phone] Barry He MD Unavailable Patience Hunt MD Unavailable Eagle Zhu DO Unavailable [phone] Marianela Hutchinson MD Unavailable [phone] Margoth Souza MD Unavailable Ceci Nicholson MD Unavailable [phone] Marianela Hutchinson MD Primary Care Provider [phone] Sigifredo Davenport MD Unavailable Abilio Ng-C Unavailable [phone] Shira Segovia MD Unavailable Ancelmo Love MD Unavailable [phone] Allergies Active Allergy Reactions Criticality Noted Date [...] Tylenol). 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); Endocrine/metabolic screening 12/18/2024 11:00 AM CDT Follow-Up Internal Medicine Center [address] [place] [address], 9th [place] [address] Shira Segovia MD Adenocarcinoma of stomach (Primary Dx); Hypertension; 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 mellitus; Paroxysmal atrial fibrillation 12/18/2024 Travel 12/15/2024 Orders Only [facility] [address] [place] [address], 7th [place] [address] Gillian Gomez PA-C Adenocarcinoma of stomach (Primary Dx) 12/01/2024 Orders Only [facility] [address] [place] [address], 7th [place] [address] Gillian Gomez PA-C Adenocarcinoma of stomach (Primary Dx) 11/13/2024 1:15 PM CDT - 11/13/2024 11:59 PM CDT Hospital Encounter Diagnostic Laboratory Center [address] [place] [address] Gillian Gomez PA-C Adenocarcinoma of stomach; Hyperkalemia; Hyponatremia Discharge Disposition: Home 11/13/2024 1:00 PM CDT Ancillary Procedure X-Ray Outpatient Center [facility], 7th [place] [address] Shira Segovia MD 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 mellitus 11/05/2024 Orders Only [facility] [address] [place] [address], 7th [place] [address] Radha Castellon, [facility] 11/04/2024 Orders Only [facility] [address] [place] [address], 7th [place] [address] Gillian Gomez PA-C 11/04/2024 Telephone [facility] [address] [place] [address], 7th [place] [address] Gabrielle Arias RN 11/02/2024 Orders Only [facility] [address] [place] [address], 7th [place] [address] Radha Castellon Werner 11/01/2024 6:00 PM CDT - 11/01/2024 11:59 PM CDT Hospital Encounter Ambulatory Treatment Center - Main Building [address] [place] [address], 2nd Floor, [place] [address] Gillian Gomez PA-C Balason, Adda Rica F, RN Adenocarcinoma of stomach (Primary Dx) Discharge Disposition: Home 10/30/2024 2:00 PM CDT Infusion Ambulatory Treatment Center - [facility] [address] [facility], 8th [place] [address] Gillian Gomez PA-C Baidon, Mario B RN Adenocarcinoma of stomach (Primary Dx); Iron deficiency anemia, not otherwise specified 10/30/2024 1:00 PM CDT Consult Internal Medicine Center [address] [place] [address], 9th [place] [address] Shira Segovia MD Hypertension (Primary Dx); Hypertensive [...] PM CDT Hospital Encounter Diagnostic Laboratory Center [address] [place] [address] Marianela Hutchinson MD Adenocarcinoma of stomach Discharge Disposition: Home 10/30/2024 Orders Only [facility] [address] [place] [address], 7th [place] [address] Marianela Hutchinson MD 10/30/2024 Travel 10/30/2024 Telephone Internal Medicine Center [address] [place] [address], 9th [place] [address] Shira Segovia MD 10/30/2024 Orders Only [facility] [address] [place] [address], 7th [place] [address] Gillian Gomez PA-C Iron deficiency anemia, not otherwise specified (Primary Dx); Adenocarcinoma of stomach 10/29/2024 Orders Only [facility] [address] [place] [address], 7th [place] [address] Gillian Gomez PA-C Adenocarcinoma of stomach (Primary Dx) 10/29/2024 Telephone Case Management [address] [place], [place] [phone] Yani Salamanca 10/28/2024 2:18 PM CDT - 10/29/2024 1:00 PM CDT Hospital Encounter Acute Cancer Care Center [address] [place] [address], 1st [place] [address] Otf Glaser MD Gandhi, Ayush, MD Sandoval, Marcelo A., MD Hypertensive crisis (Primary Dx); Hyperkalemia; Intractable nausea and vomiting; Renal cell carcinoma <Left side>; Type 2 diabetes mellitus with hyperglycemia; Atherosclerosis of coronary 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 Discharge Disposition: Home 10/28/2024 10:54 AM CDT - 10/28/2024 2:17 PM CDT Hospital Encounter Diagnostic Laboratory Center [address] [place] [address] Marianela Hutchinson MD Adenocarcinoma of stomach Discharge Disposition: Home 10/28/2024 10:45 AM CDT Infusion Ambulatory Treatment [facility] - Blue [address] [place] [address], 8th [place] [address] Marianela Hutchinson MD Moreno Escobar, Cristian, ARTURO Adenocarcinoma of stomach 10/28/2024 9:45 AM CDT - 10/28/2024 10:53 AM CDT Hospital Encounter [facility] [facility] Main [facility], 6th [place] [address] Marianela Hutchinson MD Discharge Disposition: Home 10/28/2024 Travel 10/28/2024 Orders Only G[facility] [address] [place] [address] Main dg, 7th [place] [address] Max Ottoyeyolis Estrada [facility] 10/27/2024 Orders Only Gastrointestinal Center [address] [place] [address] Main [facility], 7th [place] [address] Marianela Hutchinson MD 10/27/2024 Orders Only [facility] [address] [place] [address] Main [facility], 7th [place] [address] Gillian Gomez PA-C Adenocarcinoma of stomach (Primary Dx) 10/27/2024 Telephone Gastrointestinal Center [address] [facility] Main dg, 7th [place] [address] Gabrielle Arias RN 10/26/2024 12:20 PM CDT Follow-Up Gastrointestinal Center [address] [place] [address] Main [facility], 7th [place] [address] Marianela Hutchinson MD Adenocarcinoma of stomach (Primary Dx) 10/26/2024 Orders Only Colorectal Center - Medical Oncology [facility]5 [facility] Main dg, 7th [place] [address] David Alejandre MD 10/26/2024 Travel 10/25/2024 8:03 AM CDT - 10/25/2024 5:51 PM CDT Emergency Acute Cancer Care Center [facility]5 [facility] Main dg, 1st [place] [address] Mohan Torres MD Nausea (Primary Dx); Hypertension; Gastro-esophageal reflux disease without esophagitis; Adenocarcinoma of stomach; Renal mass; Paroxysmal atrial fibrillation Discharge Disposition: Home 10/25/2024 7:00 AM CDT - 10/25/2024 7:19 AM CDT Hospital Encounter Diagnostic Laboratory Center [address] [place] [address] Marianela Hutchinson MD Adenocarcinoma of stomach Discharge Disposition: Home 10/07/2024 4:30 PM CDT Infusion Ambulatory Treatment [place] - [place] [address] [facility], 8th Floor Elevator T [place] [phone] Marianela Hutchinson MD Gumban, Connie Y, RN Adenocarcinoma of stomach (Primary Dx) 10/07/2024 Travel 10/05/2024 1:45 PM CDT Infusion Ambulatory Treatment [place] - [address], 8th Floor [facility] [place] [address] Marianela Hutchinson MD Olipas, Donnamarie G RN Adenocarcinoma of stomach (Primary Dx); Iron deficiency anemia, not otherwise specified 10/05/2024 10:48 AM CDT - 10/05/2024 11:59 PM CDT Hospital Encounter Diagnostic Laboratory Center [address] [place] [address] Marianela Hutchinson MD Adenocarcinoma of stomach Discharge Disposition: Home 10/05/2024 Travel 10/02/2024 [facility] Only Gastrointestinal Center [address] [place] [address], 7th Floor Elev[address] [place] [phone] Gillian Gomez PA-C 09/25/2024 Telephone [facility] [address] [place], [place] [phone] Jane Sanchez, district court judge Call 09/23/2024 8:56 PM CDT - 09/23/2024 11:34 PM CDT Emergency Acute Cancer Care Center [address] [place] [address], 1st Floor near The [place] [phone] Otf Glaser MD Encounter for adjustment and management of vascular access device (Primary Dx); Hypertension Discharge Disposition: Home 09/23/2024 6:50 PM CDT Infusion Ambulatory Treatment [place] [address] [place] [address], [address] [place] [address] Marianela Hutchinson MD Rocafort, Roy G, RN Adenocarcinoma of stomach (Primary Dx) 09/21/2024 4:30 PM CDT Infusion Ambulatory Treatment [address], [address] [place] [address] Marianela Hutchinson MD Joseph, Divya, RN Adenocarcinoma of stomach (Primary Dx); Iron deficiency anemia, not otherwise specified 09/21/2024 2:20 PM CDT Follow-Up [facility] [address] [place] [address] Marianela Hutchinson MD Adenocarcinoma of stomach 09/21/2024 12:48 PM CDT - 09/21/2024 11:59 PM CDT Hospital Encounter Diagnostic Laboratory Center [address] [place] [address] Marianela Hutchinson MD Adenocarcinoma of stomach Discharge Disposition: Home 09/21/2024 Orders Only [facility] [address] [place] [address], [address] [place] [address] Marianela Hutchinson MD Adenocarcinoma of stomach (Primary Dx) 09/21/2024 Orders Only Gastrointestinal Center [address] [place] [address] Radha Castellon [facility] Adenocarcinoma of stomach (Primary Dx); Diarrhea 09/21/2024 Travel 09/21/2024 Orders Only Ambulatory Treatment [address], [address] [place] [address] Marianela Hutchinson MD Adenocarcinoma of stomach (Primary Dx) 09/09/2024 6:30 PM CDT Infusion [facility] Treatment [address], [address] [place] [address] Marianela Hutchinson MD Balason, Adda Rica F, RN Adenocarcinoma of stomach (Primary Dx) 09/09/2024 Travel 09/07/2024 4:30 PM CDT Infusion Ambulatory Treatment Center - [facility] [address] [facility], 8th [place] [address] Marianela Hutchinson MD Castillo, Emmanuel, RN Adenocarcinoma of stomach (Primary Dx); Iron deficiency anemia, not otherwise specified 09/07/2024 1:00 PM CDT Follow-Up [facility] [address] [place] [address], 7th [place] [address] Marianela Hutchinson MD Adenocarcinoma of stomach (Primary Dx) 09/07/2024 10:41 AM CDT - 09/07/2024 11:59 PM CDT Hospital Encounter Diagnostic Laboratory Center [address] [place], [place] [phone] Marianela Hutchinson MD Adenocarcinoma of stomach Discharge Disposition: Home 09/07/2024 Orders Only [facility] [address] [place] [address], 7th [place] [address] Marianela Hutchinson MD Adenocarcinoma of stomach (Primary Dx) 09/07/2024 Orders Only [facility] [address] [place] [address], 7th [place] [address] Radha Castellon, [facility] Adenocarcinoma of stomach (Primary Dx); Iron deficiency anemia, not otherwise specified 09/07/2024 Travel 08/26/2024 7:41 PM CDT - 08/26/2024 11:59 PM CDT Hospital Encounter Ambulatory Treatment [place] - [address], 2nd Floor, [place] [address] Marianela Hutchinson MD Le, Lam, RN Adenocarcinoma of stomach (Primary Dx) Discharge Disposition: Home 08/24/2024 1:40 PM CDT Follow-Up [facility] [address] [place] [address], 7th [place] [address] Marianela Hutchinson MD Adenocarcinoma of stomach 08/24/2024 12:42 PM CDT - 08/24/2024 11:59 PM CDT Hospital Encounter Ambulatory Treatment Center - Main Building [address] [place] [address] Main [facility], 2nd Floor, [place] [address] Gillian Gomez PA-C Harrison, Kishanda S, RN Adenocarcinoma of stomach (Primary Dx) Discharge Disposition: Home 08/24/2024 11:16 AM CDT - 08/24/2024 12:41 PM T Hospital Encounter Diagnostic Laboratory Center [address] [place] [address] Gillian Gomez PA-C Adenocarcinoma of stomach Discharge Disposition: Home 08/24/2024 Orders Only [facility] [address] [place] [address] Main [facility], 7th [place] [address] Marianela Hutchinson MD Adenocarcinoma of stomach (Primary Dx) 08/24/2024 Telephone [facility] [address] [place] [address] Main [facility], 7th [place] [address] Mony Saavedra RN 08/24/2024 Orders Only [facility] [address] [place] [address], 7th [place] [address] Radha Castellon Werner Adenocarcinoma of stomach (Primary Dx) 08/24/2024 Travel 08/24/2024 Orders Only Ambulatory Treatment Center - Main Building [address] [place] [address], 2nd Floor, [place] [address] Marianela Hutchinson MD Adenocarcinoma of stomach (Primary Dx) 08/21/2024 Telephone [facility] [address] [place] [address], 7th [place] [address] Milagros Rogers RN 08/17/2024 Orders Only [facility] [address] [place] [address], 7th [place] [address] Gillian Gomez PA-C Adenocarcinoma of stomach (Primary Dx) 08/06/2024 Orders Only [facility] [address] [place] [address], 7th [place] [address] Radha Castellon RPH 07/22/2024 Orders Only Ambulatory Treatment Center - Blue [address] [facility], 8th [place] [address] Marianela Hutchinson MD Adenocarcinoma of stomach (Primary Dx) 07/21/2024 Telephone Ambulatory Treatment Center - [place] [address] [facility], 8th [place] [address] Rosanna Álvarez, RN Chemotherapy Teaching 07/16/2024 2:40 PM ASSEMBLER GARMENT FORM Follow-Up [facility] [address] [place] [address], 7th [place] [address] Marianela Hutchinson MD Adenocarcinoma of stomach (Primary Dx) 07/16/2024 Orders Only [facility] [address] [place] [address], 7th [place] [address] Marianela Hutchinson MD Adenocarcinoma of stomach (Primary Dx) 07/16/2024 Orders Only [facility] [address] [place] [address], 7th [place] [address] Radha Castellon, [facility] Adenocarcinoma of stomach (Primary Dx) 07/16/2024 Travel 07/15/2024 10:08 AM ASSEMBLER GARMENT FORM - 07/15/2024 11:59 PM ASSEMBLER GARMENT FORM Hospital Encounter CT Imaging and Diagnostic Imaging [facility]5 [facility], 3rd [place] [address] Mary Kay Santamaria APRN Adenocarcinoma of stomach Discharge Disposition: Home 07/15/2024 9:49 AM ASSEMBLER GARMENT FORM - 07/15/2024 10:07 AM ASSEMBLER GARMENT FORM Hospital Encounter Diagnostic Laboratory Center [address] [place] [address] [place] [address] Mary Kay Santamaria APRN Adenocarcinoma of stomach Discharge Disposition: Home 07/07/2024 Orders Only [facility] [address] [place] [address], 7th [place] [address] Gillian Gomez PA-C Adenocarcinoma of stomach (Primary Dx) 07/06/2024 Telephone [facility] - Surgical Oncology [address] Main Bldg, 7th [place] [address] Mary Kay Santamaria, BUILDING DISMANTLER 07/06/2024 Orders Only [facility]astrointestinal Center - Surgical Oncology [facility] Main Bldg, 7th [place] [address] Mary Kay Santamaria, BUILDING DISMANTLER 07/06/2024 Orders Only [facility] [address] [place] [address] Main dg, 7th [place] [address] Gillian Gomez PA-C Adenocarcinoma of stomach (Primary Dx) 07/06/2024 Multidisciplinary Visit [facility] [address] [place] [address] Main [facility], 7th Floor Elevator [address] [place] [phone] Gillian Gomez PA-C 07/06/2024 Orders Only [facility] [address] [place] [address] Main [facility], 7th Floor Elevator [place] [phone] Donnell Van Adenocarcinoma of stomach (Primary Dx) 07/02/2024 11:00 AM ASSEMBLER GARMENT FORM Nutrition Clinical Nutrition For your Nutrition appointment location directions please call: Marianela Hutchinson MD Munder, Kathryn, SCOTT Left without seen 07/02/2024 10:30 AM ASSEMBLER GARMENT FORM Follow-Up [facility] - Surgical Oncology [address] [place] [address] Main [facility], 7th [place] [address] John Fong MD Adenocarcinoma of stomach 07/02/2024 Documentation [facility] - Surgical Oncology [address] [place] [address] Main Bldg, 7th [place] [address] John Fong MD 06/30/2024 3:33 PM ASSEMBLER GARMENT FORM Anesthesia Event Perioperative Evaluation and Management Center [address] [place] [address] Main [facility], 6th Floor Elevator A [place] [phone] Lien Antonio, RN 06/30/2024 12:25 PM ASSEMBLER GARMENT FORM Anesthesia Event Endoscopy Center [address] [place] [address] Main [facility], 5th Floor Elevator C [place] [phone] Susana Kelly MD 06/30/2024 12:00 PM ASSEMBLER GARMENT FORM - 06/30/2024 12:45 PM ASSEMBLER GARMENT FORM Surgery Endoscopy Center [address] [place] [address] Main [facility], 5th [place] [address] Brandon Alcala MD DIAGNOSTIC UPPER GASTROINTESTINAL ENDOSCOPY 06/30/2024 10:15 AM ASSEMBLER GARMENT FORM - 06/30/2024 2:24 PM ASSEMBLER GARMENT FORM Hospital Encounter Endoscopy Center [address] [place] [address] Main [facility], 5th [place] [address] Brandon Alcala MD Adenocarcinoma of stomach Discharge Disposition: Home 06/30/2024 Travel 06/29/2024 9:00 AM ASSEMBLER GARMENT FORM Consult Perioperative Evaluation and Management [address] [place] [address], 6th [place] [address] Mayr Kay Santamaria APRN Vu, Khanh D, MD Encounter for preprocedural cardiovascular examination (Primary Dx); Coronary arteriosclerosis, not otherwise specified; Cardiomyopathy, not otherwise specified; Hypertension; 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; Type 2 diabetes mellitus with hyperglycemia; Dyslipidemia; Hyponatremia; Hyperkalemia; Adenocarcinoma of stomach; Paroxysmal atrial fibrillation; Hyperlipidemia, not otherwise specified 06/29/2024 8:00 AM ASSEMBLER GARMENT FORM POEM Appointments Perioperative Evaluation and Management Center [address] [place] [address], 6th [place] [address] Marianela Hutchinson MD 06/29/2024 7:30 AM ASSEMBLER GARMENT FORM - 06/29/2024 11:59 PM ASSEMBLER GARMENT FORM Hospital Encounter [facility] [address] [place] [address] Main [facility], 2nd [place] [address] Mary Kay Santamaria APRN Adenocarcinoma of stomach Discharge Disposition: Home 06/29/2024 Travel 06/23/2024 Documentation [facility] [address] [place] [address], 7th [place] [address] Mony Saavedra RN 06/22/2024 12:20 PM ASSEMBLER GARMENT FORM Follow-Up [facility] [address] [place] [address], 7th [place] [address] Marianela Hutchinson MD Adenocarcinoma, NOS of stomach, NOS 06/22/2024 Orders Only [facility] [address] [place] [address], 7th [place] [address] Radha Castellon, [facility] 06/22/2024 Travel 06/20/2024 10:45 AM ASSEMBLER GARMENT FORM - 06/20/2024 11:59 PM ASSEMBLER GARMENT FORM Hospital Encounter Diagnostic Imaging Center [address] [place] [address], 3rd [place] [address] Adenocarcinoma, NOS of stomach, NOS; Malignant neoplasm of overlapping sites of esophagus Discharge Disposition: Home 06/20/2024 10:08 AM ASSEMBLER GARMENT FORM - 06/20/2024 10:44 AM ASSEMBLER GARMENT FORM Hospital Encounter Diagnostic Laboratory Center [address] [place] [address] Gillian Gomez PA-C Adenocarcinoma, NOS of stomach, NOS Discharge Disposition: Home 06/16/2024 [place] [facility] - Surgical Oncology [address] [place] [address], 7th [place] [address] Mary Kay Santamaria, BUILDING DISMANTLER 06/15/2024 1:30 PM ASSEMBLER GARMENT FORM Infusion Ambulatory Treatment [facility] - [facility] [address] [facility], 8th [place] [address] Marianela Hutchinson MD [facility], Fergusonjefferson Tyson RN Adenocarcinoma of stomach (Primary Dx); Iron deficiency anemia, not otherwise specified 06/15/2024 12:40 PM ASSEMBLER GARMENT FORM Follow-Up [facility] [address] [place] [address], 7th [place] [address] Marianela Hutchinson MD Adenocarcinoma, NOS of stomach, NOS; Malignant neoplasm of overlapping sites of esophagus 06/15/2024 10:24 AM ASSEMBLER GARMENT FORM - 06/15/2024 11:59 PM ASSEMBLER GARMENT FORM Hospital Encounter Diagnostic Laboratory Center [address] [place] [address] Marianela Hutchinson MD Adenocarcinoma of stomach; Adenocarcinoma, NOS of stomach, NOS Discharge Disposition: Home 06/15/2024 Orders Only [facility] [address] [facility] Main Bldg, 7th [place] [address] Radha Castellon, [facility] Adenocarcinoma of stomach (Primary Dx) 06/15/2024 Orders Only [facility] [address] Main Bldg, 7th [place] [address] Gillian Gomez PA-C 06/15/2024 Travel 06/15/2024 Telephone [facility] - Gastroenterology , Hepatology & Nutrition [address] Main Bldg, 7th [place] [address] Arnaldo Araujo PA-C 06/15/2024 Multidisciplinary Visit [facility] [address] Main Bldg, 7th [place] [address] Lakeshia Pablo PA 06/15/2024 Orders Only Gastrointestinal Center [facility] Main Bldg, 7th [place] [address] Marianela Hutchinson MD Adenocarcinoma of stomach (Primary Dx) 06/12/2024 Prep for Surgery [facility] - Gastroenterology , Hepatology & Nutrition [address] Main Bldg, 7th [place] [address] Arnaldo Araujo PA-C Adenocarcinoma of stomach (Primary Dx) 06/12/2024 Telephone [facility] - Surgical Oncology [address] [facility] Main Bldg, 7th [place] [address] Mary Kay Santamaria APRN 06/12/2024 Orders Only [facility] - Surgical Oncology [address] Main Bldg, 7th [place] [address] Mary Kay Santamaria APRN Adenocarcinoma of stomach (Primary Dx) 06/10/2024 Orders Only [facility] - Surgical Oncology [address] Main Bldg, 7th [place] [address] Mary Kay Santamaria APRN Adenocarcinoma of stomach (Primary Dx) 06/05/2024 Telephone [facility] - Gastroenterology , Hepatology & Nutrition [address] [place] [address], 7th Floor Elevator A [place] [address] Arnaldo Araujo PA-C 06/03/2024 5:30 PM ASSEMBLER GARMENT FORM [facility] - [facility] [address] [facility], 8th [place] [address] Marianela Hutchinson MD Lewandowski, Teresa M, RN Adenocarcinoma of stomach (Primary Dx) 06/03/2024 Travel 06/02/2024 Telephone [facility] [address] [place] [address], 7th [place] [address] Mony Saavedra RN 06/01/2024 1:00 PM ASSEMBLER GARMENT FORM Infusion [facility] [address] [place] [address] [facility], Floor 6 [place] [address] Marianela Hutchinson MD Shaik, Anna Marie B, RN Adenocarcinoma of stomach (Primary Dx); Iron deficiency anemia, not otherwise specified 06/01/2024 10:53 AM ASSEMBLER GARMENT FORM - 06/01/2024 11:59 PM ASSEMBLER GARMENT FORM Hospital Encounter [facility] [address] [place] [address] Marianela Hutchinson MD Adenocarcinoma of stomach; Iron deficiency anemia, not otherwise specified Discharge Disposition: Home 06/01/2024 Orders Only [facility] [address] [place] [address], 7th [place] [address] Marianela Hutchinson MD 06/01/2024 Orders Only [facility] [address] [place] [address], 7th [place] [address] Radha Castellon [facility] Adenocarcinoma of stomach (Primary Dx); Iron deficiency anemia, not otherwise specified 06/01/2024 Travel 06/01/2024 Orders Only [facility] [address] [place] [address] [facility], Floor 6 [place] [address] Marianela Hutchinson MD Adenocarcinoma of stomach (Primary Dx) 05/26/2024 Telephone [facility] - Gastroenterology , Hepatology & Nutrition [address] [place] [address] Main [facility], 7th [place] [address] Arnaldo Araujo PA-C 05/22/2024 Telephone [facility] - Gastroenterology , Hepatology & Nutrition [address] [place] [address], 7th [place] [address] Arnadlo Araujo PA-C 05/22/2024 Orders Only [facility] - Gastroenterology , Hepatology & Nutrition [address] [place] [address], 7th [place] [address] Arnaldo Araujo PA-C Candidal esophagitis (Primary Dx) 05/20/2024 4:30 PM ASSEMBLER GARMENT FORM - 05/20/2024 11:59 PM ASSEMBLER GARMENT FORM Hospital Encounter Ambulatory Treatment Center - [address], 2nd Floor, [place] [address] Marianela Hutchinson MD Lewandowski, Teresa M, RN Adenocarcinoma of stomach Discharge Disposition: Home 05/19/2024 12:44 PM ASSEMBLER GARMENT FORM Anesthesia Event [facility] [address] [place] [address], 5th [place] [address] Maurice Ferrera MD [facility], [facility] 05/19/2024 12:00 PM ASSEMBLER GARMENT FORM - 05/19/2024 1:10 PM ASSEMBLER GARMENT FORM Surgery [facility] [address] [place] [address], 5th [place] [address] Brandon Alcala MD UPPER GASTROINTESTINAL ENDOSCOPY OF ESOPHAGUS, STOMACH, OR DUODENUM ANDJ ADJACENT STRUCTURES, WITH ENDOSCOPIC ULTRASOUND EXAMINATION 05/19/2024 11:17 AM ASSEMBLER GARMENT FORM - 05/19/2024 2:49 PM ASSEMBLER GARMENT FORM Hospital Encounter Endoscopy Center [address] [place] [address], 5th [place] [address] Brandon Alcala MD Adenocarcinoma of stomach Discharge Disposition: Home 05/19/2024 Travel 05/18/2024 1:00 PM ASSEMBLER GARMENT FORM Infusion [facility] [address] [facility], Floor 6 [place] [address] Marianela Hutchinson MD Rupp, Alexa B, RN Adenocarcinoma of stomach (Primary Dx) 05/18/2024 12:20 PM ASSEMBLER GARMENT FORM Follow-Up [facility] [address] [place] [address], 7th [place] [address] Marianela Hutchinson MD Adenocarcinoma, NOS of stomach, NOS 05/18/2024 11:00 AM ASSEMBLER GARMENT FORM POEM Appointments [facility] [address] [place] [address], 6th [place] [address] Marianela Hutchinson MD 05/18/2024 10:32 AM ASSEMBLER GARMENT FORM - 05/18/2024 11:59 PM ASSEMBLER GARMENT FORM Hospital Encounter [facility] [address] [place] [address] Gillian Gomez PA-C Adenocarcinoma, NOS of stomach, NOS Discharge Disposition: Home 05/18/2024 Orders Only [facility] [address] [place] [address], 7th [place] [address] Marianela Hutchinson MD Adenocarcinoma of stomach (Primary Dx) 05/18/2024 Orders Only [facility] [address] [place] [address], 7th [place] [address] Radha Castellon Werner Adenocarcinoma of stomach (Primary Dx); Iron deficiency anemia, not otherwise specified 05/18/2024 Travel 05/15/2024 11:59 PM ASSEMBLER GARMENT FORM Anesthesia Event [facility] [address] [place] [address], 6th [place] [address] Eri Lynne, ARTURO 05/06/2024 5:30 PM ASSEMBLER GARMENT FORM Infusion [facility] - [facility] [address] [facility], 8th [place] [address] Marianela Hutchinson MD Pagara, Leni S, RN Adenocarcinoma of stomach 05/04/2024 12:36 PM ASSEMBLER GARMENT FORM - 05/04/2024 11:59 PM ASSEMBLER GARMENT FORM Hospital Encounter Ambulatory Treatment Center - Main [address], 2nd Floor, [place] [address] Gillian Gomez PA-C Jo, Edifia Sungsoon, RN Adenocarcinoma of stomach (Primary Dx) Discharge Disposition: Home 05/04/2024 12:20 PM ASSEMBLER GARMENT FORM Follow[facility]Up [facility] [address] [place] [address], 7th [place] [address] Marianela Hutchinson MD Adenocarcinoma, NOS of stomach, NOS 05/04/2024 11:10 AM ASSEMBLER GARMENT FORM - 05/04/2024 12:35 PM ASSEMBLER GARMENT FORM Hospital Encounter [facility] [address] [place] [address] Gillian Gomez PA-C Adenocarcinoma, NOS of stomach, NOS; Adenocarcinoma of stomach Discharge Disposition: Home 05/04/2024 Orders Only [facility] [address] [place] [address], 7th [place] [address] Marianela Hutchinson MD Adenocarcinoma of stomach (Primary Dx) 05/04/2024 Orders Only [facility] [address] [place] [address], 7th [place] [address] Radha Castellon [facility] Adenocarcinoma of stomach (Primary Dx) 05/04/2024 Travel 04/30/2024 Orders Only [facility] - Surgical Oncology [address] [place] [address], 7th [place] [address] Mary Kay Santamaria APRN Adenocarcinoma of stomach (Primary Dx); Paroxysmal atrial fibrillation; Hyperlipidemia, not otherwise specified; Type 2 diabetes mellitus with hyperglycemia 04/27/2024 8:05 PM ASSEMBLER GARMENT FORM Ancillary Procedure Image Library [address] [place] [address] Cancer 04/27/2024 8:00 PM ASSEMBLER GARMENT FORM Ancillary Procedure [facility] [address] [place] [address] Cancer 04/27/2024 Orders Only [facility] [address] [place] [address], 7th [place] [address] Donnell Van Adenocarcinoma of stomach (Primary Dx) 04/24/2024 Documentation [facility] Access [facility] Procedures [facility] [address] [facility], 8th [place] [address] Mary Kay Santamaria, FRANK 04/24/2024 Orders Only [facility] - Surgical Oncology [address] [place] [address], [address] [place] [address] [place] [address] Mary Kay Santamaria, BUILDING DISMANTLER Adenocarcinoma, NOS of stomach, NOS (Primary Dx) 04/24/2024 Telephone [facility] - Surgical Oncology [address] [place] [address], [address] [place] [address] Mary Kay Santamaria, FRANK 04/22/2024 Lab Requisition [facility] Sincere Moralez MD Jain, Shilpa, MD 04/21/2024 Orders Only [facility] [address] [place] [address], [address] [place] [address] Gillian Gomez PA-C Adenocarcinoma, NOS of stomach, NOS (Primary Dx); Adenocarcinoma of stomach 04/16/2024 Telephone POPEYE POTTERWYBebeto PHYSICIAN [address] [place] [address] 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, district court judge Call 04/15/2024 10:09 AM ASSEMBLER GARMENT FORM Anesthesia Event MAIN OR [address] [place] [address] Meenakshi Crowe MD Miller, Wendy, CRNA 04/15/2024 10:05 AM ASSEMBLER GARMENT FORM - 04/15/2024 1:25 PM ASSEMBLER GARMENT FORM Surgery MAIN OR [address] [place], [place] [id number] John Fong MD ROBOTIC ASSISTED SURGICAL LAPAROSCOPY 04/15/2024 7:32 AM ASSEMBLER GARMENT FORM - 04/15/2024 11:50 PM ASSEMBLER GARMENT FORM Hospital Encounter MAIN OR [address] [place] [address] John Fong MD Adenocarcinoma of stomach (Primary Dx) Discharge Disposition: Home 04/15/2024 Travel 04/14/2024 2:30 PM ASSEMBLER GARMENT FORM Consult [facility] - Surgical Oncology [address] [place] [address] Main [facility], 7th [place] [address] Gillian Gomez PA-C Badgwell, Brian, MD Adenocarcinoma, NOS of stomach, NOS (Primary Dx); Nausea 04/14/2024 Documentation [facility] - Surgical Oncology [address] [place] [address] Main [facility], 7th [place] [address] John Fong MD 04/13/2024 3:00 PM ASSEMBLER GARMENT FORM Consult [facility] [address] [place] [address], [facility] [place] [address] Marianela Hutchinson MD Mass of stomach (Primary Dx) 04/13/2024 2:02 PM ASSEMBLER GARMENT FORM Anesthesia Event [facility] [address] [place] [address], 6th [place] [address] Curtis Moctezuma PA 04/12/2024 8:22 AM ASSEMBLER GARMENT FORM - 04/12/2024 3:42 PM ASSEMBLER GARMENT FORM Hospital Encounter MAIN P06B [address] [place] [address] Nghia Zhu MD Elsayem, Ahmed, MD Nausea and vomiting (Primary Dx); Gastric cancer; Pancreatitis Discharge Disposition: Left Against Medical Advice 04/12/2024 Travel 04/09/2024 8:25 PM ASSEMBLER GARMENT FORM Ancillary Procedure [facility] [address] [place] [address] Margoth Souza MD Cancer 04/09/2024 8:20 PM ASSEMBLER GARMENT FORM Ancillary Procedure [facility] [address] [place] [address] Margoth Souza MD Cancer 04/09/2024 8:15 PM ASSEMBLER GARMENT FORM Ancillary Procedure [facility] [address] [place] [address] Margoth Souza MD Cancer 04/09/2024 8:10 PM ASSEMBLER GARMENT FORM Ancillary Procedure [facility] [address] [place], [place] [id number] Margoth Souza MD Cancer 04/09/2024 8:05 PM ASSEMBLER GARMENT FORM Ancillary Procedure [facility] [address] [place] [address] Margoth Souza MD Cancer 04/09/2024 8:00 PM ASSEMBLER GARMENT FORM Ancillary Procedure [facility] [address] [place] [address] Margoth Souza MD Cancer 04/09/2024 10:48 AM ASSEMBLER GARMENT FORM - 04/09/2024 11:59 PM ASSEMBLER GARMENT FORM Hospital Encounter [facility] [address] [place] [address] Ceci Nicholson MD Encounter for other preprocedural examination; Atherosclerosis of coronary 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, not otherwise specified; 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 Discharge Disposition: Home 04/09/2024 10:00 AM ASSEMBLER GARMENT FORM POEM Appointments [facility] [address] [place] [address], 6th [place] [address] Margoth Souza MD 04/09/2024 9:56 AM ASSEMBLER GARMENT FORM - 04/09/2024 10:47 AM ASSEMBLER GARMENT FORM Hospital Encounter [facility] - Cardiology [address] [place] [address], 2nd [place] [address] Ceci Nicholson MD Adenocarcinoma of stomach; Hyperlipidemia, not otherwise specified; Encounter for other preprocedural examination; Atherosclerosis of coronary 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, not otherwise specified Discharge Disposition: Home 04/09/2024 9:00 AM ASSEMBLER GARMENT FORM Consult Perioperative Evaluation and Management [address] [place] [address], 6th [place] [address] Mary Kay Santamaria APRN Misoi, Mercy W, MD Encounter for other preprocedural examination (Primary Dx); Adenocarcinoma of stomach; Paroxysmal atrial fibrillation; Hypertension; 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; Hyperlipidemia, not otherwise specified; Current use of 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; Atherosclerosis of coronary 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, not otherwise specified 04/09/2024 Travel 04/08/2024 Prep for Surgery [facility] - Surgical Oncology [address] [place] [address], [address] [place] [address] [place] [address] Mary Kay Santamaria APRN Adenocarcinoma of stomach (Primary Dx); Mass of stomach 04/08/2024 Orders Only [facility] - Surgical Oncology [address] [place] [address], [address] [place] [address] [place] [address] Mary Kay Santamaria APRN Adenocarcinoma of stomach (Primary Dx); Paroxysmal atrial fibrillation; Hypertension; 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; Hyperlipidemia, not otherwise specified; Current use of 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 04/08/2024 Orders Only [facility] [address] [place] [address], [address] [place] [address] Gillian Gomez PA-C Adenocarcinoma, NOS of stomach, NOS (Primary Dx) 04/06/2024 Orders Only [facility] [address] [place] [address], [address] [place] [address] [place] [address] Roberto Poole PA 04/06/2024 Orders Only [facility] [address] [place] [address], [facility] [place] [address] Roberto Poole PA Mass of stomach (Primary Dx) 04/06/2024 Orders Only [facility] [address] [place] [address], [facility] [place] [address] Roberto Poole PA Mass of stomach (Primary Dx) 04/06/2024 Telephone [facility] [address] [place] [address], [facility] [place] [address] Anais Meng RN 02/11/2024 Travel 02/10/2024 3:30 PM CDT Telemedicine [facility] [address] [place] [address], [facility] [place] [address] Margoth Souza MD Renal mass (Primary Dx) after 01/11/2024 Immunizations Immunization Administration Dates Next Due Influenza, [...] surgeries CERVICAL SPINE SURGERY C3-6 fusion, x2 ND LAPAROSCOPY SURG PARTIAL NEPHRECTOMY 01/02/2024 Abdomen/Left Procedure: ROBOTIC ASSISTED PARTIAL NEPHRECTOMY; Surgeon: Margoth Souza MD; Location: MAIN OR; Service: UROLOGY ND ULTRASONIC GUIDANCE INTRAOPERATIVE 01/02/2024 Left Procedure: INTROPERATIVE ULTRASOUND - PERFORMED BY SURGEON; Surgeon: Margoth Souza MD; Location: MAIN OR; Service: UROLOGY CORONARY ARTERY BYPASS GRAFT 01/07/2024 ND LAPS ABD PRTM&OMENTUM DX W/WO SPEC BR/WA SPX 04/15/2024 Abdomen/N/A Procedure: ROBOTIC ASSISTED SURGICAL LAPAROSCOPY; Surgeon: John Fong MD; Location: MAIN OR; Service: SURG ONC - GASTRIC/HIPEC Medical devices from this surgery are in the Medical Devices section. ND FLUORO CENTRAL VENOUS ACC ESS DEV PLACEMENT 04/15/2024 Neck/N/A Procedure: FLUORO GUIDANCE FOR CENTRAL VENOUS ACCESS DEVICE PLACEMENT, REPLACEMENT, OR REMOVAL; Surgeon: John Fong MD; Location: MAIN OR; Service: SURG ONC - GASTRIC/HIPEC Medical devices from this surgery are in the Medical Devices section. ND US VASC ACCESS SITS VSL P ATENCY NDL ENTRY 04/15/2024 N/A Procedure: US GUIDANCE WITH EVAL OF POTENTIAL ACCESS SITES, REALTIME US VISUALIZATION OF VASC NEEDLE ENTRY; Surgeon: John Fong MD; Location: MAIN OR; Service: SURG ONC - GASTRIC/HIPEC Medical devices from this surgery are in the Medical Devices section. ND INSJ TUNNELED CTR VAD W/S UBQ PORT AGE 5 YR/> 04/15/2024 Neck/N/A Procedure: PORT-A-CATH PLACEMENT; Surgeon: John Fong MD; Location: MAIN OR; Service: SURG ONC - GASTRIC/HIPEC Medical devices from this surgery are in the Medical Devices section. ND ESOPHAGOGASTRODUODENOSCOP Y US SCOPE W/ADJ STRXRS 05/19/2024 Esophagus/N/A Procedure: UPPER GASTROINTESTINAL ENDOSCOPY OF ESOPHAGUS, STOMACH, OR DUODENUM ANDJ ADJACENT STRUCTURES, WITH ENDOSCOPIC ULTRASOUND EXAMINATION; Surgeon: Brandon Alcala MD; Location: MAIN ENDOSCOPY; Service: GASTROENTEROLOGY ND ESOPHAGOGASTRODUODENOSCOP Y TRANSORAL DIAGNOSTIC 06/30/2024 Esophagus/N/A Procedure: [...] 12/03/2023-12/06/2023 of note, pt was on [facility] Peripheral vascular disease 2023 Left LE [...] on file Legal Sex Male 11:38 AM ASSEMBLER GARMENT FORM Gender Identity Not on file Sexual Orientation Not on file Occupation Industry Job Start Date Job End Date retired from [employer] Not on file N ot on file Not on file Travel History Travel Start Travel End [place] 04/12/2024 04/12/2024 Obstetrics History Last Filed Vital [...] 8:00 AM CDT Appointment Diagnostic [facility] [address] [place] [address] Marianela Hutchinson MD [address] [place] [phone] [email or web address] 01/22/2025 8:[address] Imaging and Diagnostic Imaging [address] [place] [address], 3rd [place] [address] Gillian Gomez PA-C [address] [place] [phone] [email or web address] 01/25/2025 12:20 PM CDT Follow-Up [facility] [address] [place] [address], 7th [place] [address] Marianela Hutchinson MD [address] [place] [phone] [email or web address] 02/05/2025 10:25 AM CDT Ancillary Procedure CT Imaging [facility], [address] [place] [address] Margoth Souza MD [address] [place] [phone] [email or web address] 02/05/2025 10:45 AM CDT Lab [facility] [address] [place] [address], [address] [place] [address] Margoth Souza MD [address] [place] [phone] [email or web address] 02/05/2025 11:15 AM CDT Ancillary Procedure X-Ray Outpatient Center [address] [place] [address] Margoth Souza MD [address] [place] [phone] [email or web address] 02/08/2025 2:30 PM CDT Telemedicine [facility] [address] [place] [address], [address] [place] [address] Margoth Souza MD [address] [place] [phone] [email or web address] Health Maintenance Due Date Last Done Comments COVID-19 Vaccine (#1) 01/09/1969 Pneumococcal Vaccine: 50+ Years (1 of 2 - PCV) 983 01/09/1975 Influenza Vaccine (#1) 2025 08/04/2018 Medical Devices Implanted Type Area Nuclear Unit Operator Device Identifier Shelf Expiration Date Model / Serial / Lot [id number] 6fr - [id number] Implanted:Qty: 1 on 04/15/2024 by John Fong MD at [facility] Implant Right: Neck BARD ACCESS SYSTEMS 12/17/2024 [id number] / / [id number] Procedures Procedure Name Priority Date/Time Associated Diagnosis [...] PELVIS W CONTRAST Routine 07/15/2024 4:38 PM ASSEMBLER GARMENT FORM Adenocarcinoma of stomach .CBC Routine 07/15/2024 10:01 AM ASSEMBLER GARMENT FORM Adenocarcinoma of stomach CARCINOEMBRYONIC ANTIGEN Routine 025 10:01 AM ASSEMBLER GARMENT FORM Adenocarcinoma of stomach LACTATE DEHYDROGENASE Routine 07/15/2024 10:01 AM ASSEMBLER GARMENT FORM Adenocarcinoma of stomach PHOSPHORUS LEVEL Routine 07/15/2024 10:01 AM ASSEMBLER GARMENT FORM Adenocarcinoma of stomach MAGNESIUM LEVEL Routine 07/15/2024 10:01 AM ASSEMBLER GARMENT FORM Adenocarcinoma of stomach COMPREHENSIVE METABOLIC PANEL Routine 10:01 AM ASSEMBLER GARMENT FORM Adenocarcinoma of stomach COMPLETE BLOOD COUNT W/ DIFFERENTIAL Routine 07/15/2024 10:01 AM ASSEMBLER GARMENT FORM Adenocarcinoma of stomach RESEARCH PROTOCOL [id number] Routine 07/15 10:01 AM ASSEMBLER GARMENT FORM Adenocarcinoma of stomach MDA AP IHC WORKUP Routine 07/07/2024 12:29 PM ASSEMBLER GARMENT FORM Adenocarcinoma of stomach POC GLUCOSE SCREEN Routine 06/30/2024 1:23 PM ASSEMBLER GARMENT FORM PATHOLOGY BIOPSY INTERPRETATION Routine 06/30/2024 12:51 PM ASSEMBLER GARMENT FORM Adenocarcinoma of stomach ND ESOPHAGOGASTRODUODENOSCOP Y TRANSORAL DIAGNOSTIC 06/30/2024 12:15 PM ASSEMBLER GARMENT FORM Adenocarcinoma of stomach Case Notes 06/12 per gene to schedule on 06/30, per tor to schedule 06/30 thru lunch last AM case, slot held to offer. LVM and sent mychart to schedule-DC Special Needs CHILD LIFE SPECIALISTARTURO PEREZ COMPLETE 06/18.CHILD LIFE SPECIALISTARTURO HERNANDEZ FOR DAUGHTER WITH DETAILED INSTRUCTIONS FOR PROCEDURE IN ADDITION TO HOLD ON PLAVIX FOR 5 DAYS.CHILD LIFE SPECIALISTARTURO HERNANDEZ 1ST CALL 06/16. POC CHEM 8 Routine 06/30/2024 11:10 AM ASSEMBLER GARMENT FORM POC GLUCOSE SCREEN Routine 06/30/2024 10:52 AM ASSEMBLER GARMENT FORM POC CHEM 8 Routine 06/29/2024 9:54 AM ASSEMBLER GARMENT FORM EKG, 12-LEAD (SCHEDULED) Routine 06/29/2024 Adenocarcinoma of stomach PETCT F18 FDG (FLUORODEOXYGLUCOSE) WITH CONTRAST Routine 06/20/2024 12:42 PM ASSEMBLER GARMENT FORM Adenocarcinoma, NOS of stomach, NOS Malignant neoplasm of overlapping sites of esophagus POC GLUCOSE SCREEN Routine 06/20/2024 11:06 AM ASSEMBLER GARMENT FORM .CBC Routine 06/20/2024 10:35 AM ASSEMBLER GARMENT FORM Adenocarcinoma, NOS of stomach, NOS CARCINOEMBRYONIC ANTIGEN Routine 025 10:35 AM ASSEMBLER GARMENT FORM Adenocarcinoma, NOS of stomach, NOS LACTATE DEHYDROGENASE Routine 06/20/2024 10:35 AM ASSEMBLER GARMENT FORM Adenocarcinoma, NOS of stomach, NOS PHOSPHORUS LEVEL Routine 06/20/2024 10:35 AM ASSEMBLER GARMENT FORM Adenocarcinoma, NOS of stomach, NOS MAGNESIUM LEVEL Routine 06/20/2024 10:35 AM ASSEMBLER GARMENT FORM Adenocarcinoma, NOS of stomach, NOS COMPREHENSIVE METABOLIC PANEL Routine 10:35 AM ASSEMBLER GARMENT FORM Adenocarcinoma, NOS of stomach, NOS COMPLETE BLOOD COUNT W/ DIFFERENTIAL Routine 06/20/2024 10:35 AM ASSEMBLER GARMENT FORM Adenocarcinoma, NOS of stomach, NOS .CBC Routine 06/15/2024 10:39 AM ASSEMBLER GARMENT FORM Adenocarcinoma of stomach CARCINOEMBRYONIC ANTIGEN Routine 025 10:39 AM ASSEMBLER GARMENT FORM Adenocarcinoma, NOS of stomach, NOS LACTATE DEHYDROGENASE Routine 06/15/2024 10:39 AM ASSEMBLER GARMENT FORM Adenocarcinoma, NOS of stomach, NOS PHOSPHORUS LEVEL Routine 06/15/2024 10:39 AM ASSEMBLER GARMENT FORM Adenocarcinoma, NOS of stomach, NOS MAGNESIUM LEVEL Routine 06/15/2024 10:39 AM ASSEMBLER GARMENT FORM Adenocarcinoma, NOS of stomach, NOS COMPREHENSIVE METABOLIC PANEL Routine 10:39 AM ASSEMBLER GARMENT FORM Adenocarcinoma of stomach COMPLETE BLOOD COUNT W/ DIFFERENTIAL Routine 06/15/2024 10:39 AM ASSEMBLER GARMENT FORM Adenocarcinoma of stomach .CBC Routine 06/01/2024 11:10 AM ASSEMBLER GARMENT FORM Adenocarcinoma of stomach TRANSFERRIN Routine 06/01/2024 11:10 AM ASSEMBLER GARMENT FORM Iron deficiency anemia, not otherwise specified Adenocarcinoma of stomach FERRITIN Routine 06/01/2024 11:10 AM ASSEMBLER GARMENT FORM Iron deficiency anemia, not otherwise specified Adenocarcinoma of stomach IRON LEVEL Routine 06/01/2024 11:10 AM ASSEMBLER GARMENT FORM Iron deficiency anemia, not otherwise specified Adenocarcinoma of stomach COMPREHENSIVE METABOLIC PANEL Routine 11:10 AM ASSEMBLER GARMENT FORM Adenocarcinoma of stomach COMPLETE BLOOD COUNT W/ DIFFERENTIAL Routine 06/01/2024 11:10 AM ASSEMBLER GARMENT FORM Adenocarcinoma of stomach POC GLUCOSE SCREEN Routine 05/19/2024 1:52 PM ASSEMBLER GARMENT FORM PATHOLOGY BIOPSY INTERPRETATION Routine 05/19/2024 1:10 PM ASSEMBLER GARMENT FORM Adenocarcinoma of stomach ND ESOPHAGOGASTRODUODENOSCOP Y US SCOPE W/ADJ STRXRS 05/19/2024 12:34 PM [employer] Adenocarcinoma of stomach Case Notes 04/24- WAITING FOR TRIAGE TO CA FOR 05/01- Special Needs CHILD LIFE SPECIALIST [place] Call Completed 04/30/24ad laproscopy on 04/15/24 POC GLUCOSE SCREEN Routine 05/19/2024 12:21 PM [employer] .CBC Routine 05/18/2024 10:55 AM [employer] Adenocarcinoma, NOS of stomach, NOS CARCINOEMBRYONIC ANTIGEN Routine 024 10:55 AM [employer] Adenocarcinoma, NOS of stomach, NOS LACTATE DEHYDROGENASE Routine 05/18/2024 10:55 AM [employer] Adenocarcinoma, NOS of stomach, NOS PHOSPHORUS LEVEL Routine 05/18/2024 10:55 AM [employer] Adenocarcinoma, NOS of stomach, NOS MAGNESIUM LEVEL Routine 05/18/2024 10:55 AM [employer] Adenocarcinoma, NOS of stomach, NOS COMPREHENSIVE METABOLIC PANEL Routine 10:55 AM [employer] Adenocarcinoma, NOS of stomach, NOS COMPLETE BLOOD COUNT W/ DIFFERENTIAL Routine 05/18/2024 10:55 AM [employer] Adenocarcinoma, NOS of stomach, NOS .CBC Routine 05/04/2024 11:34 AM [employer] Adenocarcinoma, NOS of stomach, NOS RESEARCH PROTOCOL [id number] Routine 05/04 11:34 AM [employer] Adenocarcinoma of stomach CARCINOEMBRYONIC ANTIGEN Routine 11:34 AM [employer] Adenocarcinoma, NOS of stomach, NOS LACTATE DEHYDROGENASE Routine 05/04/2024 11:34 AM [employer] Adenocarcinoma, NOS of stomach, NOS PHOSPHORUS LEVEL Routine 05/04/2024 11:34 AM [employer] Adenocarcinoma, NOS of stomach, NOS MAGNESIUM LEVEL Routine 05/04/2024 11:34 AM [employer] Adenocarcinoma, NOS of stomach, NOS COMPREHENSIVE METABOLIC PANEL Routine 11:34 AM [employer] Adenocarcinoma, NOS of stomach, NOS COMPLETE BLOOD COUNT W/ DIFFERENTIAL Routine 05/04/2024 11:34 AM [employer] Adenocarcinoma, NOS of stomach, NOS VERIFY CATHETER TIP PLACEMENT Routine 3:50 PM [employer] Adenocarcinoma of stomach POC GLUCOSE SCREEN Routine 04/15/2024 3:21 PM [employer] XR CHEST 1 VW PORTABLE Routine 2:45 PM [employer] POC GLUCOSE SCREEN Routine 04/15/2024 1:05 PM [employer] POC GLUCOSE SCREEN Routine 04/15/2024 12:52 PM [employer] CYTOLOGY NON-SCIENCE INTERN INTERPRETATION Routine 04/15/2024 12:33 PM [employer] Adenocarcinoma of stomach PATHOLOGY SURGICAL INTERPRETATION Routine 04/15/2024 12:13 PM [employer] Adenocarcinoma of stomach FL CENTRAL VENOUS PLACE EXCHANGE Routine 04/15/2024 11:40 AM [employer] Adenocarcinoma of stomach POC GLUCOSE SCREEN Routine 04/15/2024 9:22 AM [employer] ND INSJ TUNNELED CTR VAD W/SUBQ PORT AGE 5 YR/> 04/15/2024 9:16 AM [employer] Adenocarcinoma of stomach Special Needs MTL@0800 ND US VASC ACCESS SITS VSL PATENCY NDL ENTRY 04/15/2024 9:16 AM [employer] Adenocarcinoma of stomach Special Needs MTL@0800 ND FLUORO CENTRAL VENOUS ACCESS DEV PLACEMENT 04/15/2024 9:16 AM [employer] Adenocarcinoma of stomach Special Needs MTL@0800 ND LAPS ABD PRTM&OMENTUM DX W/WO SPEC BR/WA SPX 04/15/2024 9:16 AM [employer] Adenocarcinoma of stomach Special Needs MTL@0800 CT ABDOMEN PELVIS W CONTRAST Routine 11:18 AM [employer] .CBC Routine 04/12/2024 9:04 AM [employer] LIPASE LEVEL Routine 04/12/2024 9:04 AM [employer]M AMYLASE LEVEL Routine 04/12/2024 9:04 AM [employer] LACTATE DEHYDROGENASE Routine 04/12/2024 9:04 AM [employer]M FRACTIONATED BILIRUBIN Routine 9:04 AM [employer]M PHOSPHORUS LEVEL Routine 04/12/2024 9:04 AM [employer]M MAGNESIUM LEVEL Routine 04/12/2024 9:04 AM [employer] COMPREHENSIVE METABOLIC PANEL Routine 9:04 AM [employer] COMPLETE BLOOD COUNT W/ DIFFERENTIAL Routine 04/12/2024 9:04 AM [employer] .CBC Routine 04/09/2024 11:09 AM [employer] Encounter for other preprocedural examination Atherosclerosis of coronary 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, not otherwise specified THYROID STIMULATING HORMONE Routine 03/21 11:09 AM [employer] Encounter for other preprocedural examination Atherosclerosis of coronary 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, not otherwise specified HEMOGLOBIN A1C Routine 04/09/2024 11:09 AM [employer] 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 Encounter for other preprocedural examination COMPREHENSIVE METABOLIC PANEL Routine 11:09 AM [employer] Encounter for other preprocedural examination Atherosclerosis of coronary 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, not otherwise specified COMPLETE BLOOD COUNT W/ DIFFERENTIAL Routine 04/09/2024 11:09 AM [employer] Encounter for other preprocedural examination Atherosclerosis of coronary 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, not otherwise specified EKG, 12-LEAD (SCHEDULED) Routine 04/09/2024 Adenocarcinoma of stomach Hyperlipidemia, not otherwise specified Encounter for other preprocedural examination Atherosclerosis of coronary 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, not otherwise specified PATHOLOGY OUTSIDE INTERPRETATION Routine 04/02/[address] ABDOMEN AND PELVIS Routine 2023 8:21 AM [employer] Cancer OSI CHEST Routine 03/23/2024 7:37 PM [employer] Cancer OSI CT CHEST ABDOMEN PELVIS Routine 08/2023 7:37 PM [employer] Cancer OSI CHEST Routine 03/23/2024 7:37 PM [employer]M Cancer OSI CT CHEST Routine 03/22/2024 8:21 AM [employer]M Cancer OSI CT ABDOMEN AND PELVIS Routine 2023 7:36 PM CDT Cancer OSI CHEST Routine 01/20/2024 7:37 PM CDT Cancer OSI CHEST Routine 01/20/2024 7:37 PM CDT Cancer after 01/11/2024 Results * Sodium Level, Urine (11/13/2024 2:01 PM CDT) Urine Sodium 67 mmol/L 11/13/2024 3:28 PM CDT [facility] Comment:Normal range not cyndee ilable for collections less than 24 hours in duration. Urine Voided urine specimen / Unknown Non-blood Collection / Unknown 11/13/2024 2:01 PM CDT 11/13/2024 2:05 PM CDT us Shira Segovia MD URINE ORDERABLES Final Result Performing Organization Address City/[facility] Co de Phone Number [facility] Unless otherwise noted, all lab tests performed by: Division of Pathology and Laboratory Medicine [address] [place] [phone] * Potassium Urine (11/13/2024 2:01 PM CDT) Urine Potassium 73 mmol/L 3:28 PM CDT [facility] Comment:Normal range not cyndee ilable for collections less than 24 hours in duration. Urine Voided urine specimen / Unknown Non-blood Collection / Unknown 11/13/2024 2:01 PM CDT 11/13/2024 2:05 PM CDT us Shira Segovia MD URINE ORDERABLES Final Result [facility] Unless otherwise noted, all lab tests performed by: Division of Pathology and Laboratory Medicine [address] [place] [phone] * Osmolality Urine (11/13/2024 2:01 PM CDT) Pathologist [facility] Urine Osmolality 724 50 - 1,400 mOsm/kg H2O 11/13/2024 3:27 PM CDT [facility] Comment:Urinary osmolality m ay vary widely, depending [...] URINE ORDERABLES Final Result Performing Organization Address [facility] de Phone Number [facility] Unless otherwise noted, all lab tests performed by: Division of Pathology and Laboratory Medicine [address] [place] [phone] * (ABNORMAL) .CBC (11/13/2024 1:57 PM CDT) Only the most recent of17 resultswithin the time period is included. Pathologist [facility] White Blood Cell 9.6 4.1 - 10.5 K/uL 11/13/2024 2:45 PM CDT [facility] Red Blood Cell 11/13/2024 2:45 PM CDT [facility] Comment:See Scanned Document Hemoglobin 11.6(L) 13.3 [...] Comment:See Scanned Document RDW-SD 11/13/2024 2:[address] [facility] Comment:See Scanned Document Red Cell Diameter Width 11/13/2024 2:[address] [facility] Comment:See Scanned Document Platelet 165 160 - 397 K/uL 11/13/2024 2:[address] [facility] Mean Platelet Volume 11/13/2024 2:[address] [facility] Comment:See Scanned Document Neutrophil % 78.1(H) 43.2 - 72.7 % 11/13/2024 2:[address] [facility] Neutrophil Abs 7.50(H) 1.95 - 7.25 K/uL 11/13/2024 2:[address] [facility] Lymphocyte Abs 1.08 1.01 - 3.24 K/uL 11/13/2024 2:[address] [facility] Blood Peripheral blood specimen / Unknown Venipuncture / Unknown 11/13/2024 1:57 PM CDT 11/13/2024 2:02 PM CDT Gillian Gomez PA-C LAB BLOOD ORDERABLES Final Result [facility] [address] [place] [address] * (ABNORMAL) Comprehensive Metabolic Panel (11/13/2024 1:57 PM CDT) Only the most recent of18 resultswithin the time period is included. Bilirubin Total <0.3 0.0 - 1.2 mg/dL 11/13/2024 2:[address] [facility] Comment:Indocyanine Green (I CG) may cause falsely elevated bilirubin results. Total and direct bilirubin must not be measured from samples containing indocyanine green. False elevation of total bilirubin can be seen in patients with IgG concentrations above 28 g/L. eGFR 100 >=60 mL/min/1. 73 sq. m 11/13/2024 2:[address] [facility] Comment: The eGFRcr is calculated with [...] 23 mg/dL 11/13/2024 2:33 PM CDT [facility] Glucose Level 217(H) 70 - 99 mg/dL 11/13/2024 2:33 PM CDT [facility] Comment: Effective 12/14/15, the glucose reference intervals have been updated based on [place] Diabetes [employer] guidelines (Standards of Medical Care [...] BLOOD ORDERABLES Final Result Performing Organization Address City/[facility]/ZIP Co de Phone Number [facility] [address] [place] [address] * Osmolality (11/13/2024 1:57 PM CDT) Osmolality 291 275 - 300 mOsm/kg 11/13/2024 3:30 PM CDT [facility] Comment:Units in mOsm per kg of water. Blood Peripheral blood specimen / Unknown Venipuncture / Unknown 11/13/2024 1:57 PM CDT 11/13/2024 2:02 PM CDT Shira Segovia MD LAB BLOOD ORDERABLES Final Resul t [facility] Unless otherwise noted, all lab tests performed by: Division of Pathology and Laboratory Medicine [facility] [place] [address] * X-ray Foot 3+ Views Bilateral (11/13/2024 [...] - 99 mg/dL 10/29/2024 11:52 AM CDT [facility] POC Sample Type Capillary 10/29/2024 11:52 AM CDT [facility] Blood 10/29/2024 11:5 0 AM CDT 10/29/2024 11:52 AM CDT Narrative [facility] - 10/29/2024 11:52 AM CDT Capillary blood [...] - DEVICE Final Result Performing Organization Address [facility] Co de Phone Number [facility] Unless otherwise noted, all lab tests performed by: Division of Pathology and Laboratory Medicine [address] [place] [phone] * (ABNORMAL) Hemoglobin A1c (10/28/2024 11:01 AM CDT) Only the most recent of2 resultswithin the time period is included. Hemoglobin A1c 6.3(H) 4.3 - 5.6 % 10/28/2024 7:05 PM CDT [facility] Blood Peripheral blood specimen / Unknown Venipuncture / Unknown 10/28/2024 11:01 AM CDT 10/28/2024 11:02 AM CDT Narrative [facility] - 10/28/2024 7:05 PM CDT HbA1c values >=6.5% are diagnostic of diabetes mellitus. Diagnosis should be confirmed by repeat testing. Therapeutic Action suggested: >8.0% HbA1c; Goal of therapy: <7.0% HbA1c Bessy Gaming APRN LAB BLOOD ORDERABLES Fin al Result [facility] Unless otherwise noted, all lab tests performed by: Division of Pathology and Laboratory Medicine [address] [place] [phone] * EKG, 12-Lead (Portable) (10/28/2024) Only the [...] evidence of bowel obstruction. Mohan Torres MD [facility] DIAGNOSTIC IMAGING ORDER YASHIRA Final Result * (ABNORMAL) POC Chem 8 without Hemoglobin and Hematocrit (10/25/2024 8:26 AM CDT) POC Sodium 136(L) 138 - 146 mmol/L 10/25/2024 8:30 AM [facility] POC Potassium 4.9 3.5 - 4.9 mmol/L 10/25/2024 8:30 AM [facility] POC Chloride 101 98 - 109 mmol/L 10/25/2024 8:30 AM [facility] POC VTCO2 25 24 - 29 mmol/L 10/25/2024 8:30 AM [facility] POC Anion Gap 16 10 - 20 mmol/L 10/25/2024 8:30 AM [facility] POC BUN 16 8 - 26 mg/dL 10/25/2024 8:30 AM [facility] POC Creatinine 0.8 0.6 - 1.3 mg/dL 10/25/2024 8:30 AM [facility] Comment:Medications, especia lly hydroxyurea or supplements, such as ascorbate, can interfere with test results causing a falsely and significantly higher result than expected. If a problem is suspected with a patient's result, a sample should be sent to the laboratory for confirmatory testing. POC I Glu 147(H) 70 - 99 mg/dL 10/25/2024 8:30 AM [facility] Comment:Medications, especia lly hydroxyurea or supplements, such as ascorbate, can interfere with test results causing a falsely and significantly higher result than expected. If a problem is suspected with a patient's result, a sample should be sent to the laboratory for confirmatory testing. POC Ionized Calcium 1.20 1.12 - 1.32 mmol/L 10/25/2024 8:30 AM [facility] POC Sample Type Venous 8:30 AM [facility] POC eGFR 101 >=60 mL/min/1.7 3 sq. m 10/25/2024 8:30 AM [facility] Comment: The [...] AM CDT 10/25/2024 8:30 AM CDT Narrative [facility] - 10/25/2024 8:30 AM CDT Method description: [...] OF CARE TEST ORDERABLE S Final Result [facility] Unless otherwise noted, all lab tests performed by: Division of Pathology and Laboratory Medicine [address] [place] [phone] * Phosphorus Level (10/25/2024 8:15 AM CDT) Only the most recent of10 resultswithin the time period is included. Phosphorus Level 2.7 2.5 - 4.5 mg/dL 10/25/2024 8:55 AM CDT [facility] Blood Peripheral blood specimen / Unknown Port / Unknown 10/25/2024 8:15 AM CDT 10/25/2024 8:22 AM CDT Mohan Torres MD LAB BLOOD ORDERABLES Final R esult [facility] Unless otherwise noted, all lab tests performed by: Division of Pathology and Laboratory Medicine [address] [place] [phone] * Magnesium Level (10/25/2024 8:15 AM CDT) Only the most recent of10 resultswithin the time period is included. Magnesium Level 2.0 1.6 - 2.6 mg/dL 10/25/2024 8:55 AM CDT [facility] Blood Peripheral blood specimen / Unknown Port / Unknown 10/25/2024 8:15 AM CDT 10/25/2024 8:22 AM CDT Mohan Torres MD LAB BLOOD ORDERABLES Final R esult [facility] Unless otherwise noted, all lab tests performed by: Division of Pathology and Laboratory Medicine [address] [place] [phone] * (ABNORMAL) Lipase Level (10/25/2024 8:15 AM CDT) Only the most recent of3 resultswithin the time period is included. Lipase Level 202(H) 13 - 60 U/L 10/27/2024 7:12 AM CDT [facility] Blood Peripheral blood specimen / Unknown Port / Unknown 10/25/2024 8:15 AM CDT 10/25/2024 8:22 AM CDT Narrative [facility] - 10/27/2024 7:12 AM CDT Reference range established based on adult population us Gillian Gomez PA-C LAB BLOOD ORDERABLES Final Result [facility] Unless otherwise noted, all lab tests performed by: Division of Pathology and Laboratory Medicine [address] [place] [phone] * LDH (10/25/2024 8:15 AM CDT) Only the most recent of10 resultswithin the time period is included. LDH 186 135 - 225 U/L 10/25/2024 8:55 AM CDT [facility] Blood Peripheral blood specimen / Unknown Port / Unknown 10/25/2024 8:15 AM CDT 10/25/2024 8:22 AM CDT Narrative [facility] - 10/25/2024 8:55 AM CDT Results greater than 1651 U/L may not be reliable due to matrix effect with extended dilution as it exceeds the traffic survey technician's recommended limit. Caution should be exercised when interpreting such values and done in conjunction with clinical context. Mohan Torres MD LAB BLOOD ORDERABLES Final R esult [facility] Unless otherwise noted, all lab tests performed by: Division of Pathology and Laboratory Medicine [address] [place] [phone] * (ABNORMAL) Amylase Level (10/25/2024 8:15 AM CDT) Only the most recent of3 resultswithin the time period is included. Amylase Level 107(H) 28 - 100 U/L 10/27/2024 7:12 AM CDT [facility] Blood Peripheral blood specimen / Unknown Port / Unknown 10/25/2024 8:15 AM CDT 10/25/2024 8:22 AM CDT Gillian Gomez PA-C LAB BLOOD ORDERABLES Final Result Performing Organization Address City/[facility]/ZIP Co de Phone Number [facility] Unless otherwise noted, all lab tests performed by: Division of Pathology and Laboratory Medicine [address] [place] [phone] * Fractionated Bilirubin (10/25/2024 7:40 AM CDT) Only the most recent of2 resultswithin the time period is included. Bilirubin Direct 10/26/19 8:50 AM CDT [facility] Comment: Direct and indirect bilirubin will not be reported when Total bilirubin result is <0.3 mg/dL Indocyanine Green (ICG) may cause falsely elevated bilirubin results. Total and direct bilirubin must not be measured from samples containing indocyanine green. Bilirubin Indirect 2024 8:50 AM CDT [facility] Comment:Direct and indirect bilirubin will not be reported when Total bilirubin result is <0.3 mg/dL Bilirubin Total <0.3 0.0 - 1.2 mg/dL 10/25/2024 8:50 AM CDT [facility] Comment: Direct and indirect bilirubin will [...] MD LAB BLOOD ORDERABLES Final R esult [facility] Unless otherwise noted, all lab tests performed by: Division of Pathology and Laboratory Medicine [address] [place] [phone] * CEA (10/25/2024 7:40 AM CDT) Only the most recent of8 resultswithin the time period is included. Carcinoembryonic Antigen 3.3 <=3.8 ng/mL 10/25/2024 9:14 AM CDT [facility] Blood Venous blood specimen / Unknown Port / Unknown 10/25/2024 7:40 AM CDT 10/25/2024 8:14 AM CDT Narrative [facility] - 10/25/2024 9:14 AM CDT Reference Ranges (age 20-69 years): Non-smoker: <= 3.8 ng/mL Smoker: <= 5.5 ng/mL This test is measured by electrochemiluminescence immunoassay on [employer]el[employer] Nikki immunoassay analyzers. Results obtained in different methods are not interchangeable. us Gillian oGmez PA-C LAB BLOOD ORDERABLES Final Result Performing Organization Address City/[facility] de Phone Number [facility] Unless otherwise noted, all lab tests performed by: Division of Pathology and Laboratory Medicine [address] [place] [phone] * Research Protocol [id number] (07/15/2024 10:01 AM [employer]) Only the most recent of2 resultswithin the time period is included. Pathologist [facility] Research Protocol Specimen Specimen Collected, Ready for Pickup. 07/15/2024 12:00 PM [employer] [facility] Blood Venipuncture / Unknown 07/15/2024 10:01 AM [employer] 07/15/2024 10:10 AM [employer] Marianela Hutchinson MD [facility] Z CODES Final Re sult Performing Organization Address [facility] Co de Phone Number [facility] Unless otherwise noted, all lab tests performed by: Division of Pathology and Laboratory Medicine [address] [place] [phone] * IHC Workup (07/07/2024 12:29 PM [employer]) Tissue 07/07/2024 12:2 9 PM [employer] 07/07/2024 12:29 PM [employer] Gillian Gomez PA-C [facility] BIOMARKER ORDERABLE S Final Result Performing Organization Address [facility] de Phone Number [facility] [address] [address], [place] * Pathology Biopsy Interpretation (06/30/2024 12:51 PM [employer]) Only the most recent of2 resultswithin the time period is included. Addendum 1 By immunohistochemistry, approximately 10% of the tumor cells show weakly to moderately cytoplasmic staining for claudin 18. By immunohistochemistry the combined positive score (CPS) for PD-L1 is <1. 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 07/10/2024 8:47 AM [facility] at 1826 ASSEMBLER [employer]MENT [employer] Gross Description A: Esophagus, lower esophageal ulcer at 37cm: Multiple soft light castillo tissue fragments, 0.7 x 0.6 x 0.1 cm in aggregate, entirely submitted in A1. ET 07/10/2024 8:47 AM [facility] Biomarker Block(s) Block for biomarker testing: A1 07/10/2024 8:47 AM [facility] Disclaimer "Some tests reported here may have been developed and performance characteristics determined by [facility] Pathology and Laboratory Medicine. These tests have not been specifically cleared or approved by the U.S. Food and Drug Administration. If applicable, controls were reviewed and showed appropriate reactivity." 07/10/2024 8:47 AM [facility] Tissue (Esophagus) 06/30/2024 12:51 PM [employer] 06/30/2024 2:51 PM [employer] us Brandon Galo MD LAB PATHOLOGY ORDERA ANDERSS Edited Result - Final [address] [address], * (ABNORMAL) POC Chem 8 (06/30/2024 11:10 AM [employer]) Only the most recent of2 resultswithin the time period is included. POC Sodium 136(L) 138 - 146 mmol/L 06/30/2024 11:13 AM [facility] POC Potassium 4.5 3.5 - 4.9 mmol/L 06/30/2024 11:13 AM [facility] POC Chloride 100 98 - 109 mmol/L 06/30/2024 11:13 AM [facility] POC VTCO2 27 24 - 29 mmol/L 06/30/2024 11:13 AM [facility] POC Anion Gap 14 10 - 20 mmol/L 06/30/2024 11:13 AM [facility] POC BUN 30(H) 8 - 26 mg/dL 06/30/2024 11:13 AM [facility] POC Creatinine 1.1 0.6 - 1.3 mg/dL 06/30/2024 11:13 AM [facility] Comment:Medications, especia lly hydroxyurea or supplements, such as ascorbate, can interfere with test results causing a falsely and significantly higher result than expected. If a problem is suspected with a patient's result, a sample should be sent to the laboratory for confirmatory testing. POC I Glu 182(H) 70 - 99 mg/dL 06/30/2024 11:13 AM [facility] Comment:Medications, especia lly hydroxyurea or supplements, such as ascorbate, can interfere with test results causing a falsely and significantly higher result than expected. If a problem is suspected with a patient's result, a sample should be sent to the laboratory for confirmatory testing. POC Ionized Calcium 1.26 1.12 - 1.32 mmol/L 06/30/2024 11:13 AM [facility] POC Hct 39.0 38.0 - 51.0 % 06/30/2024 11:13 AM [facility] POC Hgb 13.3 12.0 - 17.0 gm/dL 06/30/2024 11:13 AM [facility] Comment:Hematocrit values fr om [...] standard. POC Sample Type Venous 11:13 AM [facility] POC eGFR 77 >=60 mL/min/1.7 3 sq. m 06/30/2024 11:13 AM [facility] Comment: The eGFRcr is [...] for CKD. Blood 06/30/2024 11:1 0 AM [employer] 06/30/2024 11:13 AM [employer] Narrative [facility] - 06/30/2024 11:13 AM [employer] Method description: The i-STAT is an analyzer [...] DE VICE Final Result Performing Organization Address [facility] [facility] Co de Phone Number [facility] Unless otherwise noted, all lab tests performed by: Division of Pathology and Laboratory Medicine [address] [place] [phone] * EKG, 12-Lead (Scheduled) (06/29/2024) Only the most recent of2 resultswithin the time period is included. Mary Kay Santamaria APRN ECG ORDERABLES Final R esult Performing Organization Address [facility] Co de Phone Number [facility] * PETCT F18 FDG (Fluorodeoxyglucose) with contrast (06/20/2024 12:42 PM ASSEMBLER [employer]MENT [employer]M) Anatomical Region Laterality Modality Whole Body Positron Emissio n Tomography (PET) 06/20/2024 3:10 PM [employer] Impressions 06/20/2024 4:38 PM [employer]SEM[employer]MENT [employer]M Biopsy-proven malignancy in the region of the [...] and potentially actionable. Narrative 06/20/2024 4:38 PM ASSEMBLER [employer]MENT [employer]M FULL RESULT: Examination: 18F-FDG-PET/CT with contrast, 06/20/2024 [...] * Transferrin with TIBC (06/01/2024 11:10 AM ASSEMBLER [employer]MENT FORM) Transferrin 211 200 - 360 mg/dL 06/01/2024 12:15 PM ASSEMBLER [employer]MENT [employer]M [facility] Total Iron Binding Capacity 295 250 - 450 mcg/dL 06/01/2024 12:15 PM [employer]SEMBLER [employer]MENT [employer]M [facility] Blood Peripheral blood specimen / Unknown Venipuncture / Unknown 06/01/2024 11:10 AM [employer]M 06/01/2024 11:23 AM [employer]M Marianela Hutchinson MD LAB BLOOD ORDERABLES Final Re sult [facility] Unless otherwise noted, all lab tests performed by: Division of Pathology and Laboratory Medicine [address] [place] [phone] * (ABNORMAL) Iron Level (06/01/2024 11:10 AM ASSEMBLER [employer]MENT FORM) Iron Level 38(L) 59 - 158 mcg/dL 06/01/2024 12:15 PM [employer]ER [employer]MENT [employer]M [facility] Is patient fasting? No 06/01/2024 12:15 PM ASSEMBLER [employer]MENT [employer]M [facility] Blood Peripheral blood specimen / Unknown Venipuncture / Unknown 06/01/2024 11:10 AM [employer]BLER [employer]MENT [employer]M 06/01/2024 11:23 AM ASSEMBLER [employer]MENT [employer]M us Marianela Hutchinson MD LAB BLOOD ORDERABLES Final Re sult Performing Organization Address [facility] Co de Phone Number [facility] Unless otherwise noted, all lab tests performed by: Division of Pathology and Laboratory Medicine [address] [place] [address] Unless otherwise noted, all lab tests performed by: Division of Pathology and Laboratory Medicine [address] [place] [phone] * Ferritin Level (06/01/2024 11:10 AM ASSEMBLER [employer]MENT [employer]M) Ferritin Level 59 30 - 400 ng/mL 06/01/2024 12:15 PM [employer]M [facility] Blood Peripheral blood specimen / Unknown Venipuncture / Unknown 06/01/2024 11:10 AM [employer]MENT [employer]M 06/01/2024 11:23 AM ASSEMBLER [employer]MENT [employer]M Narrative [facility] - 06/01/2024 12:15 PM [employer]SEM[employer]ER [employer]M Reference range established for age 20 - 60 years us Marianela Hutchinson MD LAB BLOOD ORDERABLES Final Re sult Performing Organization Address City/[facility]/ZIP Co de Phone Number [facility] Unless otherwise noted, all lab tests performed by: Division of Pathology and Laboratory Medicine [address] [place] [phone] * Tip Verification Central Vascular Access Device (04/15/2024 3:50 PM ASSEMBLER [employer]MENT [employer]M) Narrative John Fong MD - 04/15/2024 3:50 PM ASSEMBLER [employer]MENT [employer]M John Fong MD 04/15/2024 3:50 PM Central Vascular Access Device Tip Verification Performed by: John Fong MD Authorized by: John Fong MD CVAD Properties Date device placed: 04/15/2024 Device placement location: [facility] Catheter Type: Implanted venous port Catheter lumen: Single lumen Vein location: Internal jugular vein Laterality: Right Tip in good position and cleared for infusion us John Fong MD IV THERAPY ORDERABLES Final Re sult * XR Chest 1 View Portable (04/15/2024 2:45 PM [employer]SEMBLER [employer]MENT [employer]M) Anatomical Region Laterality Modality Chest Digital Radiogra phy 04/15/2024 2:50 PM [employer]M Impressions 04/15/2024 2:53 PM ASSEMBLER [employer]MENT [employer]M 1. Right infusion port catheter terminates over [...] and potentially actionable. Narrative 04/15/2024 2:53 PM [employer]M FULL RESULT: Examination: XR CHEST 1 VW [...] IMAGING ORDERAB LES Final Result * Cytology Non-Relief Pilot Interpretation (04/15/2024 12:33 PM ASSEMBLER [employer]MENT [employer]M) Gross Description 4 Pap Stain Slides 750 ml. clear yellow fluid Specimen concentrated by cytocentrifugation technique 4 4:07 PM ASSEMBLER [employer]ARMENT [employer]M [facility] Major Classification [facility]/benign 4 4:07 PM ASSEMBLER GARMENT FORM [facility] at 1607 ASSEMBLER GARMENT FORM Diagnosis Peritoneal washing: No metastatic carcinoma identified Reactive mesothelial cells and histiocytes 4 4:07 PM ASSEMBLER [employer]ARMENT [employer]M [facility] at 1607 ASSEMBLER GARMENT FORM Retained/Biomark er Testing SR:4S 4 4:07 PM ASSEMBLER GARMENT FORM [facility] Informational Points Some tests reported here may have been developed and performance characteristics determined by [facility] Pathology and Laboratory Medicine. These tests have not been specifically cleared or approved by the U.S. Food and Drug Administration. 4 4:07 PM ASSEMBLER GARMENT FORM [facility] Washing (Peritoneal Washing) 04/15/2024 12:33 PM ASSEMBLER [employer]MENT [employer]M 04/15/2024 1:10 PM ASSEMBLER GARMENT [employer]M John Fong MD LAB CYTOLOGY ORDERABLES Final Result Performing Organization Address [facility] de Phone Number [address] [address], * Pathology Surgical Interpretation (04/15/2024 12:13 PM ASSEMBLER [employer]ARMENT FORM) Submitted Clinical History Adenocarcinoma of stomach [C16.9] 04/20/2024 8:13 PM ASSEMBLER GARMENT FORM [facility] Diagnosis A. Falciform ligament, resection: Fibroadipose tissue, no tumor present 04/20/2024 8:13 PM ASSEMBLER GARMENT FORM [facility] at 2013 ASSEMBLER GARMENT FORM Gross Description A: Falciform ligament, falciorm ligament biopsy....or 16: Consists of a fragment of castillo-yellow, lobulated fat (0.8 x 0.6 x 0.5 cm) entirely submitted in cassette A1. EF 04/20/2024 8:13 PM [facility] Disclaimer "Some tests reported here may have been developed and performance characteristics determined by [facility] Pathology and Laboratory Medicine. These tests have not been specifically cleared or approved by the U.S. Food and Drug Administration. If applicable, controls were reviewed and showed appropriate reactivity." 04/20/2024 8:13 PM ASSEMBLER GARMENT FORM [facility] Tissue (Falciform Ligament) 04/15/2024 12:13 PM ASSEMBLER [employer]MENT [employer]M 04/15/2024 1:18 PM ASSEMBLER [employer]MENT [employer]M John Fong MD LAB PATHOLOGY ORDERABLES Final Result Performing Organization Address City/[facility]/ZIP Co de Phone Number [address] [address], [place] * [place] Central Venous Place Exchange (04/15/2024 11:40 AM ASSEMBLER GARMENT FORM) Narrative Systemgenerated, Documentation - 04/15/2024 11:40 AM ASSEMBLER GARMENT FORM This procedure requires no interpretation from the radiologist. us John Fong MD IMG FLUOROSCOPY ORDERABLES Fin al Result * CT Abdomen Pelvis with IV Contrast (04/12/2024 11:18 AM ASSEMBLER GARMENT FORM) Anatomical Region Laterality Modality Abdomen, Pelvis Computed Tomogra phy 04/12/2024 11:5 2 AM ASSEMBLER GARMENT FORM Impressions 04/12/2024 12:11 PM ASSEMBLER GARMENT FORM Wall thickening and slight mucosal irregularity of [...] and potentially actionable. Narrative 04/12/2024 12:11 PM ASSEMBLER GARMENT FORM FULL RESULT: Examination: CT ABDOMEN PELVIS W [...] Final Result * TSH (04/09/2024 11:09 AM ASSEMBLER GARMENT FORM) Pathologist [facility] Thyroid Stimulating Hormone 1.53 0.27 - 4.20 mcunit/mL 04/09/2024 12:23 PM ASSEMBLER GARMENT FORM [facility] Blood Peripheral blood specimen / Unknown Venipuncture / Unknown 04/09/2024 11:09 AM ASSEMBLER GARMENT FORM 04/09/2024 11:19 AM ASSEMBLER GARMENT FORM Ceci Nicholson MD LAB BLOOD ORDERABLES Final Resu lt [facility] Unless otherwise noted, all lab tests performed by: Division of Pathology and Laboratory Medicine [address] [place] [phone] * Pathology Outside Interpretation (04/02/2024) Pathologist [facility] Materials Received Accession#, Stained, Block, Unstained Collected Received A. [id number], 20 SS, 0 BLOCKS, 0 USS 04/02/2024 04/22/2024 04/22/2024 5:36 PM ASSEMBLER GARMENT FORM [facility] Diagnosis Outside ([id number], 20 SS, 0 BLOCKS, 0 USS, collected [...] FEATURES. See comment. FY/ISAURO 04/22/2024 5:36 PM [facility] at 1736 ASSEMBLER GARMENT FORM Comment Part A. There is no evidence of malignancy on H&E and immunohistochemical stain for Cytokeratin AE1/AE3. Of note, the biopsy may not be business office representative of the entire lesion. Please [...] immunohistochemistry: Negative (Score: 0) 04/22/2024 5:36 PM [facility] Biomarker Block(s) Block for biomarker testing: C1 Normal block: N/A 04/22/2024 5:36 PM [facility] Disclaimer "Some tests reported here may have been developed and performance characteristics determined by [facility] Pathology and Laboratory Medicine. These tests have not been specifically cleared or approved by the U.S. Food and Drug Administration. If applicable, controls were reviewed and showed appropriate reactivity." 04/22/2024 5:36 PM [facility] Tissue 04/02/2024 04/22/2024 6:4 0 AM ASSEMBLER GARMENT FORM us Sybil Edmonds MD LAB PATHOLOGY ORDERABLES Final R esult [facility] [place] [address], [place] * OSI CT Abdomen and Pelvis (04/01/2024 8:21 AM ASSEMBLER GARMENT FORM) Only the most recent of2 resultswithin the time period is included. Narrative Systemgenerated, Documentation - 04/27/2024 8:22 AM ASSEMBLER GARMENT FORM Study acquired at another institution. For comparison only. No MD Pernell originated interpretation requested or available. [facility] Regan Zhu DO IMG OUTSIDE IMAGE ORDERAB LES Final Result * OSI CT CHEST ABDOMEN PELVIS (03/23/2024 7:37 PM ASSEMBLER GARMENT FORM) Narrative Systemgenerated, Documentation - 04/09/2024 7:37 PM ASSEMBLER GARMENT FORM Study acquired at another institution. For comparison only. No MD Pernell originated interpretation requested or available. Margoth Souza MD IMG OUTSIDE IMAGE ORDERABLES Fin al Result * OSI Chest (03/23/2024 7:37 PM ASSEMBLER GARMENT FORM) Only the most recent of4 resultswithin the time period is included. Narrative Systemgenerated, Documentation - 04/09/2024 7:37 PM ASSEMBLER GARMENT FORM Study acquired at another institution. For comparison only. No MD Pernell originated interpretation requested or available. Margoth Souza MD IMG OUTSIDE IMAGE ORDERABLES Fin al Result * OSI CT Chest (03/22/2024 8:21 AM ASSEMBLER GARMENT FORM) Narrative Systemgenerated, Documentation - 04/27/2024 8:21 AM ASSEMBLER GARMENT FORM Study acquired at another institution. For comparison only. No MD Gimenez originated interpretation requested or available. [facility] Regan Zhu DO IMG OUTSIDE IMAGE ORDERAB LES Final Result after 01/11/2024 Insurance MEDICARE PART A AND B MEDICARE [...] based on Advanced Directive Documentation Care Teams Inside Sales Assistant Relationship Specialty Start Date End Date Marogth Souza MD [address] [place] [phone] [email or web address] PCP - General Urology 07/30/23 04/14/24 Eagle Zhu DO [address] [place] [phone] [email or web address] PCP - External Primary Care Provider Family Practice 04/08/24 Marianela Hutchinson MD [address] [place] [phone] [email or web address] PCP - General Gastrointestinal Medical Oncology 05/04/24 Mary Jane Cassidy MD [address] [place] [phone] [email or web address] Consulting Physician Endocrinology 12/09/23 Barry eH MD [address] [place] [phone] [email or web address] Consulting Physician Internal Medicine 12/23/23 Patience Hunt MD [address] [place] [phone] [email or web address] Consulting Physician Endocrinology 12/31/23 Marianela Hutchinson MD [address] [place] [phone] [email or web address] Consulting Physician Gastrointestinal Medical Oncology 04/13/24 Margoth Souza MD [address] [place] [phone] [email or web address] Consulting Physician Urology 04/15/24 Ceci Nicholson MD [address] [place] [phone] [email or web address] Consulting Physician Internal Medicine 04/09/24 Sigifredo Davenport MD [address] [place] [phone] [email or web address] Consulting Physician Internal Medicine 06/29/24 Abilio Ng PA-C [address] [place] [address] [phone] Physician Hat Ironer Interventional Radiology 10/02/23 Shira Segovia MD [address] [place] [address] [phone] [email or web address] Consulting Physician Internal Medicine 10/30/24 Ancelmo Love MD [address] [place] [phone] General Surgery 01/05/25
[2025-01-10] MEDS ORDERED: PROMETHAZINE INJ 25 MG/ML AMP ONE (15:28)
--- NOTE | 2025-01-10 16:28 | ER ---
Nurse's Notes [facility] Name: Zeke Mackay Age: 60 yrs Sex: Male : 1965 Arrival Date: 01/10/2025 Time: 15:07 Bed 14 Private MD: Diagnosis: Nausea Presentation: 01/10 15:17 Chief complaint: Patient states: nausea since 0330 this morning , no vomiting , no abd iw pain. Coronavirus screen: At this time, the client does not indicate any symptoms associated with coronavirus-19. Ebola Screen: No symptoms or risks identified at this time. Initial Sepsis Screen: Does the patient meet any 2 criteria? No. Patient's initial sepsis screen is negative. Does the patient have a suspected source of infection? No. Patient's initial sepsis screen is negative. Risk Assessment: Do you want to hurt yourself or someone else? Patient reports no desire to harm self or others. Onset of symptoms was January 10, 2025. 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 - Infectious Disease History:: Denies. - Social history:: Smoking status: Patient uses street drugs, marijuana. Screenin:47 [facility] ED Fall Risk Assessment (Adult) History of falling in the last 3 months, jb4 including since admission No falls in past 3 months (0 pts) Confusion or Disorientation No (0 pts) Intoxicated or Sedated No (0 pts) Impaired Gait No (0 pts) Mobility Assist Device Used No (0 pt) Altered Elimination No (0 pt) Score/Fall Risk Level 0 - 2 = Low Risk Oriented to surroundings, Maintained a safe environment. Abuse screen: Denies threats or abuse. Nutritional screening: No deficits noted. Tuberculosis screening: No symptoms or risk factors identified. Assessment: 15:47 General: Appears in no apparent distress. comfortable. Pain: Denies pain. Neuro: Level jb4 of Consciousness is awake, alert, obeys commands, Oriented to person, place, time, situation. Cardiovascular: Patient's skin is warm and dry. Respiratory: Airway is patent Respiratory effort is even, unlabored, Respiratory pattern is regular, symmetrical. GI: Abdomen is flat, non-distended. Derm: Skin is intact, Skin is pink, warm \T\ dry. Musculoskeletal: Circulation, motion, and sensation intact. Range of motion: intact in all extremities. 16:24 Reassessment: Patient appears in no apparent distress at this time. Patient and/or jb4 family updated on plan of care and expected duration. Pain level reassessed. Patient is alert, oriented x 3, equal unlabored respirations, skin warm/dry/pink. Pt no longer nauseous, disconnected form monitor. Pt verbalized he wants to go home and wants to leave prior to receiving discharge instructions. Patient states feeling better. Patient states symptoms have improved. Vital Signs: 15:17 BP 172 / 67; Pulse 74; Resp 16; Temp 98.9(O); Pulse Ox 100% on R/A; Weight 77.11 kg; iw Height 6 ft. 2 in. ; 15:17 Body Mass Index 21.83 (77.11 kg, 187.96 cm) iw ED Course: 15:08 Patient arrived in ED. iw 15:09 Nicci Sanchez [facility]-C [facility]. kb 15:09 Emanuel England MD is Attending Physician. kb 15:20 Triage completed. iw 15:20 Arm band placed on. iw 15:47 Venkata Torres, RN is Primary Nurse. jb4 15:47 Patient has correct armband on for positive identification. Bed in low position. Call jb4 light in reach. Side rails up X 1. Provided Education on: plan of care. 15:47 No provider procedures requiring assistance completed. Patient did not have IV access jb4 during this emergency room visit. Administered Medications: 15:38 Drug: Promethazine IM 25 mg IM once Route: IM; Site: right gluteus; jb4 16:25 Follow up: Response: No adverse reaction; Marked relief of symptoms; Nausea is decreasedjb4 Medication: 15:47 VIS not applicable for this client. jb4 Outcome: 16:28 Discharge ordered by . kb 16:34 Discharged to home ambulatory, jb4 16:34 Condition: stable 16:34 Discharge instructions given to left prior to receiving instructions. 16:35 Patient left the ED. jb4 Signatures: Nicci Sanchez, RIDDHI-C PRODUCT SAFETY MANAGER-[place], RN RN iw Venkata Torres RN RN jb4
--- NOTE | 2025-01-10 16:28 | EDPHYS ---
Physician Documentation [facility] Name: Zeke Mackay Age: 60 yrs Sex: Male : 1965 Arrival Date: 01/10/2025 Time: 15:07 Bed 14 Private MD: ED Physician Emanuel England HPI: 01/10 16:33 This 60 yrs old Male presents to ER via Ambulatory with complaints of Nausea. kb 16:33 Pt is a 60 year old male who presents for nausea that started at 0300 today. States he kb has stomach cancer and has intermittent nausea. Has reglan at home for the nausea but it didn't work today. . 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 - Infectious Disease History:: Denies. - Social history:: Smoking status: Patient uses street drugs, marijuana. ROS: 16:31 Constitutional: As per HPI kb Exam: 16:31 Constitutional: This is a well developed, well nourished patient who is awake, alert, kb and in no acute distress. Head/Face: Normocephalic, atraumatic. ENT: Moist Mucous membranes Cardiovascular: Regular rate Respiratory: Respirations even and unlabored. No increased work of breathing. Talking in full sentences Abdomen/GI: Soft, non-tender. No distention Skin: Warm, dry with normal turgor. Normal color. MS/ Extremity: Pulses equal, no cyanosis. Neurovascular intact. Full, normal range of motion. Neuro: Awake and alert, GCS 15, oriented to person, place, time, and situation. Vital Signs: 15:17 BP 172 / 67; Pulse 74; Resp 16; Temp 98.9(O); Pulse Ox 100% on R/A; Weight 77.11 kg; iw Height 6 ft. 2 in. ; 15:17 Body Mass Index 21.83 (77.11 kg, 187.96 cm) iw MDM: 15:09 Medical Screening Exam initiated kb 16:31 Differential diagnosis: abnormal electrolytes, chronic nausea, dehydration. Data kb reviewed: vital signs, nurses notes. Test considered but Not performed: Labs: cbc, cmp considered but were completed 3 days ago and reviewed. Pt has had nausea without vomiting. Tolerating po intake after treatment and wanted to go home. CT: ct abd considered but pt denies any new abd pain and had CT scan 3 days ago that I reviewed. Counseling: I had a detailed discussion with the patient and/or guardian regarding the historical points, exam findings, and any diagnostic results supporting the discharge/admit diagnosis, the need for outpatient follow up, a family practitioner, to return to the emergency department if symptoms worsen or persist or if there are any questions or concerns that arise at home. Administered Medications: 15:38 Drug: Promethazine IM 25 mg IM once Route: IM; Site: right gluteus; jb4 16:25 Follow up: Response: No adverse reaction; Marked relief of symptoms; Nausea is decreasedjb4 Disposition: 17:50 Co-signature as Attending Physician, Emanuel England MD I reviewed the patient's care rn provided by the Advanced Practice Provider and agree with the diagnosis and treatment plan. Disposition Summary: 01/10/25 16:28 Discharge Ordered Notes: Location: Home kb Condition: Stable kb Diagnosis - Nausea kb Followup: kb - With: Emergency Department - When: As needed - Reason: Worsening of condition Followup: kb - With: Private Physician - When: 2 - 3 days - Reason: Recheck today's complaints, Continuance of care, Re-evaluation by your physician Discharge Instructions: - Discharge Summary Sheet kb - Nausea, Adult, [id number] kb Forms: - Medication Reconciliation Form kb - Antibiotic Education kb - Prescription Opioid Use kb - Patient Portal Instructions kb - Leadership Thank You Letter kb Signatures: Nicci Sanchez, RIDDHI-Adams HANNON-Regina Mills, RN Emanuel Elizondo MD MD rn Bryson, James, RN RN jb4
[2025-01-10 16:48] VITALS: BP 172/67; TEMP 98.9; O2SAT 100
== END 2025-01-10 16:35 | disposition home or self-care (01) ==
LOC: ER 15:07
DX: R11.0 Nausea (principal); C16.9 Malignant neoplasm of stomach, unspecified
CPT/HCPCS: 96372; 99284; J2550

== ENCOUNTER 2025-01-10 20:07 | Emergency (ER) | payer OTHER, BC ==
--- OUTSIDE RECORDS SUMMARY | 2025-01-10 20:16 | XMS REPORT | Clinical Summary ---
Author Name Unknown Organization [facility] [place] Address [address] [place] [address] Care Team Providers Care Jacquard Fixer Name Role Phone Margoth Souza MD Primary Care Provider [phone] Mary Jane Cassidy MD Unavailable [phone] Barry He MD Unavailable Patience Hunt MD Unavailable Eagle Zhu DO Unavailable [phone] Marianela Hutchinson MD Unavailable [phone] Margoth Souza MD Unavailable Ceci Nicholson MD Unavailable [phone] Marianela Hutchinson MD Primary Care Provider [phone] Sigifredo Davenport MD Unavailable Abilio Ng-C Unavailable [phone] Shira Segovia MD Unavailable Ancelmo Love MD Unavailable [phone] Allergies Active Allergy Reactions Criticality Noted Date [...] Tylenol). 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); Endocrine/metabolic screening 12/18/2024 11:00 AM CDT Follow-Up Internal Medicine Center [address] [place] [address], 9th [place] [address] Shira Segovia MD Adenocarcinoma of stomach (Primary Dx); Hypertension; 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 mellitus; Paroxysmal atrial fibrillation 12/18/2024 Travel 12/15/2024 Orders Only [facility] [address] [place] [address], 7th [place] [address] Gillain Gomez PA-C Adenocarcinoma of stomach (Primary Dx) 12/01/2024 Orders Only [facility] [address] [place] [address], 7th [place] [address] Gillian Gomez PA-C Adenocarcinoma of stomach (Primary Dx) 11/13/2024 1:15 PM CDT - 11/13/2024 11:59 PM CDT Hospital Encounter Diagnostic Laboratory Center [address] [place] [address] Gillian Gomez PA-C Adenocarcinoma of stomach; Hyperkalemia; Hyponatremia Discharge Disposition: Home 11/13/2024 1:00 PM CDT Ancillary Procedure X-Ray Outpatient Center [facility], 7th [place] [address] Shira Segovia MD 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 mellitus 11/05/2024 Orders Only [facility] [address] [place] [address], 7th [place] [address] Radha Castellon, [facility] 11/04/2024 Orders Only [facility] [address] [place] [address], 7th [place] [address] Gillian Gomez PA-C 11/04/2024 Telephone [facility] [address] [place] [address], 7th [place] [address] Gabrielle Arias RN 11/02/2024 Orders Only [facility] [address] [place] [address], 7th [place] [address] Radha Castellon Werner 11/01/2024 6:00 PM CDT - 11/01/2024 11:59 PM CDT Hospital Encounter Ambulatory Treatment Center - Main Building [address] [place] [address], 2nd Floor, [place] [address] Gillian oGmez PA-C Balason, Adda Rica F, RN Adenocarcinoma of stomach (Primary Dx) Discharge Disposition: Home 10/30/2024 2:00 PM CDT Infusion Ambulatory Treatment Center - Blue [address] [facility], 8th [place] [address] Gillian Gomez PA-C Baidon, Mario B RN Adenocarcinoma of stomach (Primary Dx); Iron deficiency anemia, not otherwise specified 10/30/2024 1:00 PM CDT Consult Internal Medicine Center [address] [place] [address], 9th [place] [address] Shira Segovia MD Hypertension (Primary Dx); Hypertensive [...] CDT Hospital Encounter Diagnostic [facility] [address] [place] [address] Marianela Hutchinson MD Adenocarcinoma of stomach Discharge Disposition: Home 10/30/2024 Orders Only [facility] [address] [place] [address], 7th [place] [address] Marianela Hutchinson MD 10/30/2024 Travel 10/30/2024 Telephone Internal Medicine Center [address] [place] [address], 9th [place] [address] Shira Segovia MD 10/30/2024 Orders Only [facility] [address] [place] [address], 7th [place] [address] Gillian Gomez PA-C Iron deficiency anemia, not otherwise specified (Primary Dx); Adenocarcinoma of stomach 10/29/2024 Orders Only [facility] [address] [place] [address], 7th [place] [address] Gillian Gomez PA-C Adenocarcinoma of stomach (Primary Dx) 10/29/2024 Telephone Case Management [address] [place], [place] [phone] Yani Salamanca 10/28/2024 2:18 PM CDT - 10/29/2024 1:00 PM CDT Hospital Encounter Acute Cancer Care Center [address] [place] [address], 1st [place] [address] Otf Glaser MD Gandhi, Ayush, MD Sandoval, Marcelo A., MD Hypertensive crisis (Primary Dx); Hyperkalemia; Intractable nausea and vomiting; Renal cell carcinoma <Left side>; Type 2 diabetes mellitus with hyperglycemia; Atherosclerosis of coronary 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 Discharge Disposition: Home 10/28/2024 10:54 AM CDT - 10/28/2024 2:17 PM CDT Hospital Encounter Diagnostic Laboratory Center [address] [place] [address] Marianela Hutchisnon MD Adenocarcinoma of stomach Discharge Disposition: Home 10/28/2024 10:45 AM CDT Infusion Ambulatory Treatment Center - Blue [address] [place] [address], 8th [place] [address] Marianela Hutchinson MD Moreno Escobar, Cristian, ARTURO Adenocarcinoma of stomach 10/28/2024 9:45 AM CDT - 10/28/2024 10:53 AM CDT Hospital Encounter [facility] [address], 6th [place] [address] Marianela Hutchinson MD Discharge Disposition: Home 10/28/2024 Travel 10/28/2024 Orders Only [facility] [address] [place] [address] Main dg, 7th [place] [address] Max Ottoyeyolis Estrada [facility] 10/27/2024 Orders Only [facility] [address] [place] [address] Main [facility], 7th [place] [address] Marianela Hutchinson MD 10/27/2024 Orders Only [facility] [address] [place] [address] Main [facility], 7th [place] [address] Gillian Gomez PA-C Adenocarcinoma of stomach (Primary Dx) 10/27/2024 Telephone [facility]astro[facility] [address] [facility] Main dg, 7th [place] [address] Gabrielle Arias RN 10/26/2024 12:20 PM CDT Follow-Up [facility] [address] [place] [address] Main [facility], 7th [place] [address] Marianela Hutchinson MD Adenocarcinoma of stomach (Primary Dx) 10/26/2024 Orders Only Colorectal Center - Medical Oncology [facility] Main dg, 7th [place] [address] David Alejandre MD 10/26/2024 Travel 10/25/2024 8:03 AM CDT - 10/25/2024 5:51 PM CDT Emergency Acute Cancer Care Center [facility] Main dg, 1st [place] [address] Mohan Torres MD Nausea (Primary Dx); Hypertension; Gastro-esophageal reflux disease without esophagitis; Adenocarcinoma of stomach; Renal mass; Paroxysmal atrial fibrillation Discharge Disposition: Home 10/25/2024 7:00 AM CDT - 10/25/2024 7:19 AM CDT Hospital Encounter Diagnostic Laboratory Center [address] [place] [address] Marianela Hutchinson MD Adenocarcinoma of stomach Discharge Disposition: Home 10/07/2024 4:30 PM CDT Infusion Ambulatory Treatment [place] - [place] [address] [facility], 8th Floor Elevator [address] [place] [phone] Marianela Hutchinson MD Gumban, Connie Y, RN Adenocarcinoma of stomach (Primary Dx) 10/07/2024 Travel 10/05/2024 1:45 PM CDT Infusion Ambulatory Treatment [place] - [address], 8th Floor [facility] [place] [address] Marianela Hutchinson MD Olipas, Donnamarie G RN Adenocarcinoma of stomach (Primary Dx); Iron deficiency anemia, not otherwise specified 10/05/2024 10:48 AM CDT - 10/05/2024 11:59 PM CDT Hospital Encounter Diagnostic Laboratory Center [address] [place] [address] Marianela Hutchinson MD Adenocarcinoma of stomach Discharge Disposition: Home 10/05/2024 Travel 10/02/2024 [facility] Only [facility]astrointestinal Center [address] [place] [address], 7th Floor [address] [phone] Gillian Gomez PA-C 09/25/2024 Telephone [facility] PHYSICIAN [address] [place], [place] [phone] Jane Sanchez, neurology manager Call 09/23/2024 8:56 PM CDT - 09/23/2024 11:34 PM CDT Emergency Acute Cancer Care Center [address] [place] [address], 1st Floor near The [place] [phone] Otf Glaser MD Encounter for adjustment and management of vascular access device (Primary Dx); Hypertension Discharge Disposition: Home 09/23/2024 6:50 PM CDT Infusion Ambulatory Treatment [place] - [place] [address] [place] [address], [address] [place] [address] Marianela Hutchinson MD Rocafort, Roy G, RN Adenocarcinoma of stomach (Primary Dx) 09/21/2024 4:30 PM CDT Infusion Ambulatory Treatment [address], [address] [place] [address] Marianela Hutchinson MD Joseph, Divya, RN Adenocarcinoma of stomach (Primary Dx); Iron deficiency anemia, not otherwise specified 09/21/2024 2:20 PM CDT Follow-Up [facility] [address] [place] [address] Marianela Hutchinson MD Adenocarcinoma of stomach 09/21/2024 12:48 PM CDT - 09/21/2024 11:59 PM CDT Hospital Encounter Diagnostic Laboratory Center [address] [place] [address] Marianela Hutchinson MD Adenocarcinoma of stomach Discharge Disposition: Home 09/21/2024 Orders Only [facility] [address] [place] [address], [address] [place] [address] Marianela Hutchinson MD Adenocarcinoma of stomach (Primary Dx) 09/21/2024 Orders Only [facility] [address] [place] [address] Radha Castellon [facility] Adenocarcinoma of stomach (Primary Dx); Diarrhea 09/21/2024 Travel 09/21/2024 Orders Only Ambulatory Treatment [address], [address] [place] [address] Marianela Hutchinson MD Adenocarcinoma of stomach (Primary Dx) 09/09/2024 6:30 PM CDT [facility] [address], [address] [place] [address] Marianela Hutchinson MD Balason, Adda Rica F, RN Adenocarcinoma of stomach (Primary Dx) 09/09/2024 Travel 09/07/2024 4:30 PM CDT Infusion Ambulatory Treatment Center - Blue [address] [facility], 8th [place] [address] Marianela Hutchinson MD Castillo, Emmanuel, RN Adenocarcinoma of stomach (Primary Dx); Iron deficiency anemia, not otherwise specified 09/07/2024 1:00 PM CDT Follow-Up [facility] [address] [place] [address], 7th [place] [address] Marianela Hutchinson MD Adenocarcinoma of stomach (Primary Dx) 09/07/2024 10:41 AM CDT - 09/07/2024 11:59 PM CDT Hospital Encounter Diagnostic Laboratory Center [address] [place], [place] [phone] Marianela Hutchinson MD Adenocarcinoma of stomach Discharge Disposition: Home 09/07/2024 Orders Only [facility] [address] [place] [address], 7th [place] [address] Marianela Hutchinson MD Adenocarcinoma of stomach (Primary Dx) 09/07/2024 Orders Only [facility] [address] [place] [address], 7th [place] [address] Radha Castellon, [facility] Adenocarcinoma of stomach (Primary Dx); Iron deficiency anemia, not otherwise specified 09/07/2024 Travel 08/26/2024 7:41 PM CDT - 08/26/2024 11:59 PM CDT Hospital Encounter Ambulatory Treatment [place] - [address], 2nd Floor, [place] [address] Marianela Hutchinson MD Le, Lam, RN Adenocarcinoma of stomach (Primary Dx) Discharge Disposition: Home 08/24/2024 1:40 PM CDT Follow-Up [facility] [address] [place] [address], 7th [place] [address] Marianela Hutchinson MD Adenocarcinoma of stomach 08/24/2024 12:42 PM CDT - 08/24/2024 11:59 PM CDT Hospital Encounter Ambulatory Treatment Center - Main Building [address] [place] [address] Main [facility], 2nd Floor, [place] [address] Gillian Gomez PA-C Harrison, Kishanda S, RN Adenocarcinoma of stomach (Primary Dx) Discharge Disposition: Home 08/24/2024 11:16 AM CDT - 08/24/2024 12:41 PM T Hospital Encounter Diagnostic Laboratory Center [address] [place] [address] Gillian Gomez PA-C Adenocarcinoma of stomach Discharge Disposition: Home 08/24/2024 Orders Only [facility] [address] [place] [address] Main [facility], 7th [place] [address] Marianela Hutchinson MD Adenocarcinoma of stomach (Primary Dx) 08/24/2024 Telephone [facility] [address] [place] [address] Main [facility], 7th [place] [address] Mony Saavedra RN 08/24/2024 Orders Only [facility] [address] [place] [address], 7th [place] [address] Radha Castellon Werner Adenocarcinoma of stomach (Primary Dx) 08/24/2024 Travel 08/24/2024 Orders Only Ambulatory Treatment Center - Main Building [address] [place] [address], 2nd Floor, [place] [address] Marianela Hutchinson MD Adenocarcinoma of stomach (Primary Dx) 08/21/2024 Telephone [facility] [address] [place] [address], 7th [place] [address] Milagros Rogers RN 08/17/2024 Orders Only [facility] [address] [place] [address], 7th [place] [address] Gillian Gomez PA-C Adenocarcinoma of stomach (Primary Dx) 08/06/2024 Orders Only [facility] [address] [place] [address], 7th [place] [address] Radha Castellon RPH 07/22/2024 Orders Only Ambulatory Treatment Center - Blue [address] [facility], 8th [place] [address] Marianela Hutchinson MD Adenocarcinoma of stomach (Primary Dx) 07/21/2024 Telephone Ambulatory Treatment Center - [place] [address] [facility], 8th [place] [address] Rosanna Álvarez, RN Chemotherapy Teaching 07/16/2024 2:40 PM DRY DIP WORKER Follow-Up [facility] [address] [place] [address], 7th [place] [address] Marianela Hutchinson MD Adenocarcinoma of stomach (Primary Dx) 07/16/2024 Orders Only [facility] [address] [place] [address], 7th [place] [address] Marianela Hutchinson MD Adenocarcinoma of stomach (Primary Dx) 07/16/2024 Orders Only [facility] [address] [place] [address], 7th [place] [address] Radha Castellon, [facility] Adenocarcinoma of stomach (Primary Dx) 07/16/2024 Travel 07/15/2024 10:08 AM DRY DIP WORKER - 07/15/2024 11:59 PM DRY DIP WORKER Hospital Encounter CT Imaging and Diagnostic Imaging [facility], 3rd [place] [address] Mary Kay Santamaria APRN Adenocarcinoma of stomach Discharge Disposition: Home 07/15/2024 9:49 AM DRY DIP WORKER - 07/15/2024 10:07 AM DRY DIP WORKER Hospital Encounter Diagnostic Laboratory Center [address] [place] [address] [place] [address] Mary Kay Santamaria APRN Adenocarcinoma of stomach Discharge Disposition: Home 07/07/2024 Orders Only [facility] [address] [place] [address], 7th [place] [address] Gillian Gomez PA-C Adenocarcinoma of stomach (Primary Dx) 07/06/2024 Telephone [facility] - Surgical Oncology [address] Main Bldg, 7th [place] [address] Mary Kay Santamaria, CLAY STRUCTURE BUILDER AND SERVICER 07/06/2024 Orders Only [facility] - Surgical Oncology [facility] Main Bldg, 7th [place] [address] Mary Kay Santamaria, CLAY STRUCTURE BUILDER AND SERVICER 07/06/2024 Orders Only [facility] [address] [place] [address] Main dg, 7th [place] [address] Gillian Gomez PA-C Adenocarcinoma of stomach (Primary Dx) 07/06/2024 Multidisciplinary Visit [facility] [address] [place] [address] Main [facility], 7th Floor Elevator [place] [phone] Gillian Gomez PA-C 07/06/2024 Orders Only [facility] [address] [place] [address] Main [facility], 7th Floor Elevator [place] [phone] Donnell Van Adenocarcinoma of stomach (Primary Dx) 07/02/2024 11:00 AM DRY DIP WORKER Nutrition Clinical Nutrition For your Nutrition appointment location directions please call: Marianela Hutchinson MD Munder, Kathryn, SCOTT Left without seen 07/02/2024 10:30 AM DRY DIP WORKER Follow-Up [facility] - Surgical Oncology [address] [place] [address] Main [facility], 7th [place] [address] John Fong MD Adenocarcinoma of stomach 07/02/2024 Documentation [facility] - Surgical Oncology [address] [place] [address] Main Bldg, 7th [place] [address] John Fong MD 06/30/2024 3:33 PM DRY DIP WORKER Anesthesia Event Perioperative Evaluation and Management Center [address] [place] [address] Main [facility], 6th Floor Elevator [place] [phone] Lien Antonio, RN 06/30/2024 12:25 PM DRY DIP WORKER Anesthesia Event Endoscopy Center [address] [place] [address] Main [facility], 5th Floor Elevator [address] [place] [phone] Susana Kelly MD 06/30/2024 12:00 PM DRY DIP WORKER - 06/30/2024 12:45 PM DRY DIP WORKER Surgery Endoscopy Center [address] [place] [address] Main [facility], 5th [place] [address] Brandon Alcala MD DIAGNOSTIC UPPER GASTROINTESTINAL ENDOSCOPY 06/30/2024 10:15 AM DRY DIP WORKER - 06/30/2024 2:24 PM DRY DIP WORKER Hospital Encounter Endoscopy Center [address] [place] [address] Main [facility], 5th [place] [address] Brandon Alcala MD Adenocarcinoma of stomach Discharge Disposition: Home 06/30/2024 Travel 06/29/2024 9:00 AM DRY DIP WORKER Consult Perioperative Evaluation and Management [address] [place] [address], 6th [place] [address] Mary Kay Santamaria APRN Vu, Khanh D, MD Encounter for preprocedural cardiovascular examination (Primary Dx); Coronary arteriosclerosis, not otherwise specified; Cardiomyopathy, not otherwise specified; Hypertension; 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; Type 2 diabetes mellitus with hyperglycemia; Dyslipidemia; Hyponatremia; Hyperkalemia; Adenocarcinoma of stomach; Paroxysmal atrial fibrillation; Hyperlipidemia, not otherwise specified 06/29/2024 8:00 AM DRY DIP WORKER POEM Appointments Perioperative Evaluation [facility] Management Center [address] [place] [address], 6th [place] [address] Marianela Hutchinson MD 06/29/2024 7:30 AM DRY DIP WORKER - 06/29/2024 11:59 PM DRY DIP WORKER Hospital Encounter [facility] - Cardiology [address] [place] [address] Main [facility], 2nd [place] [address] Mary Kay Santamaria APRN Adenocarcinoma of stomach Discharge Disposition: Home 06/29/2024 Travel 06/23/2024 Documentation [facility] [address] [place] [address], 7th [place] [address] Mony Saavedra RN 06/22/2024 12:20 PM DRY DIP WORKER Follow-Up [facility] [address] [place] [address], 7th [place] [address] Marianela Hutchinson MD Adenocarcinoma, NOS of stomach, NOS 06/22/2024 Orders Only [facility] [address] [place] [address], 7th [place] [address] Radha Castellon, [facility] 06/22/2024 Travel 06/20/2024 10:45 AM DRY DIP WORKER - 06/20/2024 11:59 PM DRY DIP WORKER Hospital Encounter Diagnostic Imaging Center [address] [place] [address], 3rd [place] [address] Adenocarcinoma, NOS of stomach, NOS; Malignant neoplasm of overlapping sites of esophagus Discharge Disposition: Home 06/20/2024 10:08 AM DRY DIP WORKER - 06/20/2024 10:44 AM DRY DIP WORKER Hospital Encounter Diagnostic Laboratory Center [address] [place] [address] Gillian Gomez PA-C Adenocarcinoma, NOS of stomach, NOS Discharge Disposition: Home 06/16/2024 [facility] - Surgical Oncology [address] [place] [address], 7th [place] [address] Mary Kay Santamaria, CLAY STRUCTURE BUILDER AND SERVICER 06/15/2024 1:30 PM DRY DIP WORKER Infusion Ambulatory Treatment [facility] - Blue [address] [facility], 8th [place] [address] Marianela Hutchinson MD [facility], Sugar Runjefferson Tyson RN Adenocarcinoma of stomach (Primary Dx); Iron deficiency anemia, not otherwise specified 06/15/2024 12:40 PM DRY DIP WORKER Follow-Up [facility] [address] [place] [address], 7th [place] [address] Marianela Hutchinson MD Adenocarcinoma, NOS of stomach, NOS; Malignant neoplasm of overlapping sites of esophagus 06/15/2024 10:24 AM DRY DIP WORKER - 06/15/2024 11:59 PM DRY DIP WORKER Hospital Encounter Diagnostic Laboratory Center [address] [place] [address] Marianela Hutchinson MD Adenocarcinoma of stomach; Adenocarcinoma, NOS of stomach, NOS Discharge Disposition: Home 06/15/2024 Orders Only [facility] [facility] Main Bldg, 7th [place] [address] Radha Castellon, [facility] Adenocarcinoma of stomach (Primary Dx) 06/15/2024 Orders Only [facility] [address] Main Bldg, 7th [place] [address] Gillian Gomez PA-C 06/15/2024 Travel 06/15/2024 Telephone [facility] - Gastroenterology , Hepatology & Nutrition [address] Main Bldg, 7th [place] [address] Arnaldo Araujo PA-C 06/15/2024 Multidisciplinary Visit [facility] [address] Main Bldg, 7th [place] [address] Lakeshia Pablo PA 06/15/2024 Orders Only [facility]astrointestinal Center [facility] Main Bldg, 7th [place] [address] Marianela Hutchinson MD Adenocarcinoma of stomach (Primary Dx) 06/12/2024 Prep for Surgery [facility] - Gastroenterology , Hepatology & Nutrition [address] Main Bldg, 7th [place] [address] Arnaldo Araujo PA-C Adenocarcinoma of stomach (Primary Dx) 06/12/2024 Telephone [facility] - Surgical Oncology [address] [facility] Main Bldg, 7th [place] [address] Mary Kay Santamaria APRN 06/12/2024 Orders Only [facility] - Surgical Oncology [address] Main Bldg, 7th [place] [address] Mary Kay Santamaria APRN Adenocarcinoma of stomach (Primary Dx) 06/10/2024 Orders Only [facility] - Surgical Oncology [address] Main Bldg, 7th Floor Elevator A [place] [address] Mary Kay Santamaria APRN Adenocarcinoma of stomach (Primary Dx) 06/05/2024 Telephone [facility]enterology [facility] Hepatology & Nutrition [address] [place] [address], 7th [place] [address] Arnaldo Araujo PA-C 06/03/2024 5:30 PM DRY DIP WORKER [facility] - Blue [address] [facility], 8th [place] [address] Marianela Hutchinson MD Lewandowski, Teresa M, RN Adenocarcinoma of stomach (Primary Dx) 06/03/2024 Travel 06/02/2024 Telephone [facility] [address] [place] [address], 7th [place] [address] Mony Saavedra RN 06/01/2024 1:00 PM DRY DIP WORKER Infusion [facility] [address] [place] [address] [facility], Floor 6 [place] [address] Marianela Hutchinson MD Shaik, Anna Marie B, RN Adenocarcinoma of stomach (Primary Dx); Iron deficiency anemia, not otherwise specified 06/01/2024 10:53 AM DRY DIP WORKER - 06/01/2024 11:59 PM DRY DIP WORKER Hospital Encounter [facility] [address] [place] [address] Marianela Hutchinson MD Adenocarcinoma of stomach; Iron deficiency anemia, not otherwise specified Discharge Disposition: Home 06/01/2024 Orders Only [facility] [address] [place] [address], 7th [place] [address] Marianela Hutchinson MD 06/01/2024 Orders Only [facility] [address] [place] [address], 7th [place] [address] Radha Castellon [facility] Adenocarcinoma of stomach (Primary Dx); Iron deficiency anemia, not otherwise specified 06/01/2024 Travel 06/01/2024 Orders Only [facility] [address] [place] [address] [facility], Floor 6 [place] [address] Marianela Hutchinson MD Adenocarcinoma of stomach (Primary Dx) 05/26/2024 Telephone [facility] Gastroenterology , Hepatology & Nutrition [address] [place] [address] Main [facility], 7th [place] [address] Arnaldo Araujo PA-C 05/22/2024 Telephone [facility]astroenterology , Hepatology & Nutrition [address] [place] [address], 7th [place] [address] Arnaldo Araujo PA-C 05/22/2024 Orders Only [facility] Gastroenterology , Hepatology & Nutrition [address] [place] [address], 7th [place] [address] Arnaldo Araujo PA-C Candidal esophagitis (Primary Dx) 05/20/2024 4:30 PM DRY DIP WORKER - 05/20/2024 11:59 PM DRY DIP WORKER Hospital Encounter Ambulatory Treatment Center - [address], 2nd Floor, [place] [address] Marianela Hutchinson MD Lewandowski, Teresa M, RN Adenocarcinoma of stomach Discharge Disposition: Home 05/19/2024 12:44 PM DRY DIP WORKER Anesthesia Event [facility] [address] [place] [address], 5th [place] [address] Maurice Ferrera MD [facility], [facility] 05/19/2024 12:00 PM DRY DIP WORKER - 05/19/2024 1:10 PM DRY DIP WORKER Surgery [facility] [address] [place] [address], 5th [place] [address] Brandon Alcala MD UPPER GASTROINTESTINAL ENDOSCOPY OF ESOPHAGUS, STOMACH, OR DUODENUM ANDJ ADJACENT STRUCTURES, WITH ENDOSCOPIC ULTRASOUND EXAMINATION 05/19/2024 11:17 AM DRY DIP WORKER - 05/19/2024 2:49 PM DRY DIP WORKER Hospital Encounter [facility]oscopy Center [address] [place] [address], 5th [place] [address] Brandon Alcala MD Adenocarcinoma of stomach Discharge Disposition: Home 05/19/2024 Travel 05/18/2024 1:00 PM DRY DIP WORKER Infusion [facility] [address] [facility], Floor 6 [place] [address] Marianela Hutchinson MD Rupp, Alexa B, RN Adenocarcinoma of stomach (Primary Dx) 05/18/2024 12:20 PM DRY DIP WORKER [facility]Up [facility] [address] [place] [address], 7th [place] [address] Marianela Hutchinson MD Adenocarcinoma, NOS of stomach, NOS 05/18/2024 11:00 AM DRY DIP WORKER POEM Appointments [facility] [address] [place] [address], 6th [place] [address] Marianela Hutchinson MD 05/18/2024 10:32 AM DRY DIP WORKER - 05/18/2024 11:59 PM DRY DIP WORKER Hospital Encounter [facility] [address] [place] [address] Gillian Gomez PA-C Adenocarcinoma, NOS of stomach, NOS Discharge Disposition: Home 05/18/2024 Orders Only [facility] [address] [place] [address], 7th [place] [address] Marianela Hutchinson MD Adenocarcinoma of stomach (Primary Dx) 05/18/2024 Orders Only [facility] [address] [place] [address], 7th [place] [address] Radha Castellon Werner Adenocarcinoma of stomach (Primary Dx); Iron deficiency anemia, not otherwise specified 05/18/2024 Travel 05/15/2024 11:59 PM DRY DIP WORKER Anesthesia Event [facility] [address] [place] [address], 6th [place] [address] Eri Lynne, ARTURO 05/06/2024 5:30 PM DRY DIP WORKER Infusion [facility] [place] - Blue [address] [facility], 8th [place] [address] Marianela Hutchinson MD Pagara, Leni S, RN Adenocarcinoma of stomach 05/04/2024 12:36 PM DRY DIP WORKER - 05/04/2024 11:59 PM DRY DIP WORKER Hospital Encounter Ambulatory Treatment Center - Main [address], 2nd Floor, [place] [address] Gillian Gomez PA-C Jo, Edifia Sungsoon, RN Adenocarcinoma of stomach (Primary Dx) Discharge Disposition: Home 05/04/2024 12:20 PM DRY DIP WORKER [facility] [address] [place] [address], 7th [place] [address] Marianela Hutchinson MD Adenocarcinoma, NOS of stomach, NOS 05/04/2024 11:10 AM DRY DIP WORKER - 05/04/2024 12:35 PM DRY DIP WORKER Hospital Encounter [facility] [address] [place] [address] Gillian Gomez PA-C Adenocarcinoma, NOS of stomach, NOS; Adenocarcinoma of stomach Discharge Disposition: Home 05/04/2024 Orders Only [facility] [address] [place] [address], 7th [place] [address] Marianela Hutchinson MD Adenocarcinoma of stomach (Primary Dx) 05/04/2024 Orders Only [facility] [address] [place] [address], 7th [place] [address] Radha Castellon [facility] Adenocarcinoma of stomach (Primary Dx) 05/04/2024 Travel 04/30/2024 Orders Only [facility] - Surgical Oncology [address] [place] [address], 7th [place] [address] Mary Kay Santamaria APRN Adenocarcinoma of stomach (Primary Dx); Paroxysmal atrial fibrillation; Hyperlipidemia, not otherwise specified; Type 2 diabetes mellitus with hyperglycemia 04/27/2024 8:05 PM DRY DIP WORKER Ancillary Procedure [facility] [address] [place] [address] Cancer 04/27/2024 8:00 PM DRY DIP WORKER Ancillary Procedure [facility] [address] [place] [address] Cancer 04/27/2024 Orders Only [facility] [address] [place] [address], 7th [place] [address] Donnell Van Adenocarcinoma of stomach (Primary Dx) 04/24/2024 Documentation [facility] [address] [facility], 8th [place] [address] Mary Kay Santamaria, FRANK 04/24/2024 Orders Only [facility] Surgical Oncology [address] [place] [address], [address] [place] [address] [place] [address] Mary Kay Santamaria, CLAY STRUCTURE BUILDER AND SERVICER Adenocarcinoma, NOS of stomach, NOS (Primary Dx) 04/24/2024 Telephone [facility] Oncology [address] [place] [address], [address] [place] [address] Mary Kay Santamaria, FRANK 04/22/2024 Lab Requisition [facility] Sincere Moralez MD Jain, Shilpa, MD 04/21/2024 Orders Only [facility] [address] [place] [address], [address] [place] [address] Gillian Gomez PA-C Adenocarcinoma, NOS of stomach, NOS (Primary Dx); Adenocarcinoma of stomach 04/16/2024 Telephone POPEYE POTTERHIBebeto PHYSICIAN [address] [place] [address] 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, neurology manager Call 04/15/2024 10:09 AM DRY DIP WORKER Anesthesia Event MAIN OR [address] [place] [address] Meenakshi Crowe MD Miller, Wendy, CRNA 04/15/2024 10:05 AM DRY DIP WORKER - 04/15/2024 1:25 PM DRY DIP WORKER Surgery MAIN OR [address] [place], [place] [id number] John Fong MD ROBOTIC ASSISTED SURGICAL LAPAROSCOPY 04/15/2024 7:32 AM DRY DIP WORKER - 04/15/2024 11:50 PM DRY DIP WORKER Hospital Encounter MAIN OR [address] [place] [address] John Fong MD Adenocarcinoma of stomach (Primary Dx) Discharge Disposition: Home 04/15/2024 Travel 04/14/2024 2:30 PM DRY DIP WORKER Consult [facility] [address] [place] [address] Main [facility], 7th [place] [address] Gillian Gomez PA-C Badgwell, Brian, MD Adenocarcinoma, NOS of stomach, NOS (Primary Dx); Nausea 04/14/2024 Documentation [facility] Oncology [address] [place] [address] Main [facility], 7th [place] [address] John Fong MD 04/13/2024 3:00 PM DRY DIP WORKER Consult [facility] [address] [place] [address], [facility] [place] [address] Marianela Hutchinson MD Mass of stomach (Primary Dx) 04/13/2024 2:02 PM DRY DIP WORKER Anesthesia Event [facility] [address] [place] [address], 6th [place] [address] Curtis Moctezuma PA 04/12/2024 8:22 AM DRY DIP WORKER - 04/12/2024 3:42 PM DRY DIP WORKER Hospital Encounter MAIN P06B [address] [place] [address] Nghia Zhu MD Elsayem, Ahmed, MD Nausea and vomiting (Primary Dx); Gastric cancer; Pancreatitis Discharge Disposition: Left Against Medical Advice 04/12/2024 Travel 04/09/2024 8:25 PM DRY DIP WORKER Ancillary Procedure [facility] [address] [place] [address] Margoth Souza MD Cancer 04/09/2024 8:20 PM DRY DIP WORKER Ancillary Procedure [facility] [address] [place] [address] Margoth Souza MD Cancer 04/09/2024 8:15 PM DRY DIP WORKER Ancillary Procedure [facility] [address] [place] [address] Margoth Souza MD Cancer 04/09/2024 8:10 PM DRY DIP WORKER Ancillary Procedure [facility] [address] [place], [place] [id number] Margoth Souza MD Cancer 04/09/2024 8:05 PM DRY DIP WORKER Ancillary Procedure [facility] [address] [place] [address] Margoth Souza MD Cancer 04/09/2024 8:00 PM DRY DIP WORKER Ancillary Procedure [facility] [address] [place] [address] Margoth Souza MD Cancer 04/09/2024 10:48 AM DRY DIP WORKER - 04/09/2024 11:59 PM DRY DIP WORKER Hospital Encounter [facility] [address] [place] [address] Ceci Nicholson MD Encounter for other preprocedural examination; Atherosclerosis of coronary artery bypass graft without angina pectoris, not otherwise specified; 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 Discharge Disposition: Home 04/09/2024 10:00 AM DRY DIP WORKER POEM Appointments [facility] [address] [place] [address], 6th [place] [address] Margoth Souza MD 04/09/2024 9:56 AM DRY DIP WORKER - 04/09/2024 10:47 AM DRY DIP WORKER Hospital Encounter [facility] - Cardiology [address] [place] [address], 2nd [place] [address] Ceci Nicholson MD Adenocarcinoma of stomach; Hyperlipidemia, not otherwise specified; Encounter for other preprocedural examination; Atherosclerosis of coronary artery bypass graft without angina pectoris, not otherwise specified Discharge Disposition: Home 04/09/2024 9:00 AM DRY DIP WORKER Consult Perioperative Evaluation and Management [address] [place] [address], 6th [place] [address] Mary Kay Santamaria APRN Misoi, Mercy W, MD Encounter for other preprocedural examination (Primary Dx); Adenocarcinoma of stomach; Paroxysmal atrial fibrillation; Hypertension; 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; Hyperlipidemia, not otherwise specified; Current use of 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; Atherosclerosis of coronary artery bypass graft without angina pectoris, not otherwise specified 04/09/2024 Travel 04/08/2024 Prep for Surgery [facility] [address] [place] [address], [address] [place] [address] [place] [address] Mary Kay Santamaria APRN Adenocarcinoma of stomach (Primary Dx); Mass of stomach 04/08/2024 Orders Only [facility] Surgical Oncology [address] [place] [address], [address] [place] [address] [place] [address] Mary Kay Santamaria APRN Adenocarcinoma of stomach (Primary Dx); Paroxysmal atrial fibrillation; Hypertension; 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; Hyperlipidemia, not otherwise specified; Current use of 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 04/08/2024 Orders Only [facility] [address] [place] [address], [address] [place] [address] Gillian Gomez PA-C Adenocarcinoma, NOS of stomach, NOS (Primary Dx) 04/06/2024 Orders Only [facility] [address] [place] [address], [address] [place] [address] [place] [address] Roberto Poole PA 04/06/2024 Orders Only [facility] [address] [place] [address], [facility] [place] [address] Roberto Poole PA Mass of stomach (Primary Dx) 04/06/2024 Orders Only [facility] [address] [place] [address], [facility] [place] [address] Roberto Poole PA Mass of stomach (Primary Dx) 04/06/2024 Telephone [facility] [address] [place] [address], [facility] [place] [address] Anais Meng RN 02/11/2024 Travel 02/10/2024 3:30 PM CDT Telemedicine [facility] [address] [place] [address], [facility] [place] [address] Margoth Souza MD Renal mass (Primary Dx) [...] locally 12/03/2023-12/06/2023 of note, pt was on [facility] Peripheral vascular disease 2023 Left [...] on file Legal Sex Male 11:38 AM DRY DIP WORKER Gender Identity Not on file Sexual Orientation Not on file Occupation Industry Job Start Date Job End Date retired from [employer] Not on file N ot on [...] 8:00 AM CDT Appointment [facility] [address] [place] [address] Marianela Hutchinson MD [address] [place] [phone] [email or web address] 01/22/2025 8:[address] Imaging and Diagnostic Imaging [address] [place] [address], 3rd [place] [address] Gillian Gomez PA-C [address] [place] [phone] [email or web address] 01/25/2025 12:20 PM CDT Follow-Up [facility] [address] [place] [address], 7th [place] [address] Marianela Hutchinson MD [address] [place] [phone] [email or web address] 02/05/2025 10:25 AM CDT Ancillary Procedure CT Imaging [facility], [address] [place] [address] Margoth Souza MD [address] [place] [phone] [email or web address] 02/05/2025 10:45 AM CDT Lab [facility] [address] [place] [address], [address] [place] [address] Margoth Souza MD [address] [place] [phone] [email or web address] 02/05/2025 11:15 AM CDT Ancillary Procedure [facility] Outpatient [facility] [address] [place] [address] Margoth Souza MD [address] [place] [phone] [email or web address] 02/08/2025 2:30 PM CDT Telemedicine [facility] [address] [place] [address], [address] [place] [address] Margoth Souza MD [address] [place] [phone] [email or web address] Health Maintenance Due Date Last Done Comments COVID-19 Vaccine (#1) 01/09/1969 Pneumococcal Vaccine: 50+ Years (1 of 2 - PCV) 983 01/09/1975 Influenza Vaccine (#1) 2025 08/04/2018 Medical Devices Implanted Type Area Sailing Master Device Identifier Shelf Expiration Date Model / Serial / Lot [id number] 6fr - [id number] Implanted:Qty: 1 on 04/15/2024 by John Fong MD at [facility] Implant Right: Neck [employer] SYSTEM[employer] 12/17/2024 [id number] / / [id number] Procedures Procedure Name Priority Date/Time Associated Diagnosis [...] PELVIS W CONTRAST Routine 07/15/2024 4:38 PM DRY DIP WORKER Adenocarcinoma of stomach .CBC Routine 07/15/2024 10:01 AM DRY DIP WORKER Adenocarcinoma of stomach CARCINOEMBRYONIC ANTIGEN Routine 025 10:01 AM DRY DIP WORKER Adenocarcinoma of stomach LACTATE DEHYDROGENASE Routine 07/15/2024 10:01 AM DRY DIP WORKER Adenocarcinoma of stomach PHOSPHORUS LEVEL Routine 07/15/2024 10:01 AM DRY DIP WORKER Adenocarcinoma of stomach MAGNESIUM LEVEL Routine 07/15/2024 10:01 AM DRY DIP WORKER Adenocarcinoma of stomach COMPREHENSIVE METABOLIC PANEL Routine 10:01 AM DRY DIP WORKER Adenocarcinoma of stomach COMPLETE BLOOD COUNT W/ DIFFERENTIAL Routine 07/15/2024 10:01 AM DRY DIP WORKER Adenocarcinoma of stomach RESEARCH PROTOCOL [id number] Routine 07/15 10:01 AM DRY DIP WORKER Adenocarcinoma of stomach MDA AP IHC WORKUP Routine 07/07/2024 12:29 PM DRY DIP WORKER Adenocarcinoma of stomach POC GLUCOSE SCREEN Routine 06/30/2024 1:23 PM DRY DIP WORKER PATHOLOGY BIOPSY INTERPRETATION Routine 06/30/2024 12:51 PM DRY DIP WORKER Adenocarcinoma of stomach MA ESOPHAGOGASTRODUODENOSCOP Y TRANSORAL DIAGNOSTIC 06/30/2024 12:15 PM DRY DIP WORKER Adenocarcinoma of stomach Case Notes 06/12 per gene to schedule on 06/30, per tor to schedule 06/30 thru lunch last AM case, slot held to offer. LVM and sent mychart to schedule-DC Special Needs BROKE BEATERARTURO PEREZ COMPLETE 06/18.BROKE BEATERARTURO HERNANDEZ FOR DAUGHTER WITH DETAILED INSTRUCTIONS FOR PROCEDURE IN ADDITION TO HOLD ON PLAVIX FOR 5 DAYS.BROKE BEATERARTURO HERNANDEZ 1ST CALL 06/16. POC CHEM 8 Routine 06/30/2024 11:10 AM DRY DIP WORKER POC GLUCOSE SCREEN Routine 06/30/2024 10:52 AM DRY DIP WORKER POC CHEM 8 Routine 06/29/2024 9:54 AM DRY DIP WORKER EKG, 12-LEAD (SCHEDULED) Routine 06/29/2024 Adenocarcinoma of stomach PETCT F18 FDG (FLUORODEOXYGLUCOSE) WITH CONTRAST Routine 06/20/2024 12:42 PM DRY DIP WORKER Adenocarcinoma, NOS of stomach, NOS Malignant neoplasm of overlapping sites of esophagus POC GLUCOSE SCREEN Routine 06/20/2024 11:06 AM DRY DIP WORKER .CBC Routine 06/20/2024 10:35 AM DRY DIP WORKER Adenocarcinoma, NOS of stomach, NOS CARCINOEMBRYONIC ANTIGEN Routine 025 10:35 AM DRY DIP WORKER Adenocarcinoma, NOS of stomach, NOS LACTATE DEHYDROGENASE Routine 06/20/2024 10:35 AM DRY DIP WORKER Adenocarcinoma, NOS of stomach, NOS PHOSPHORUS LEVEL Routine 06/20/2024 10:35 AM DRY DIP WORKER Adenocarcinoma, NOS of stomach, NOS MAGNESIUM LEVEL Routine 06/20/2024 10:35 AM DRY DIP WORKER Adenocarcinoma, NOS of stomach, NOS COMPREHENSIVE METABOLIC PANEL Routine 10:35 AM DRY DIP WORKER Adenocarcinoma, NOS of stomach, NOS COMPLETE BLOOD COUNT W/ DIFFERENTIAL Routine 06/20/2024 10:35 AM DRY DIP WORKER Adenocarcinoma, NOS of stomach, NOS .CBC Routine 06/15/2024 10:39 AM DRY DIP WORKER Adenocarcinoma of stomach CARCINOEMBRYONIC ANTIGEN Routine 025 10:39 AM DRY DIP WORKER Adenocarcinoma, NOS of stomach, NOS LACTATE DEHYDROGENASE Routine 06/15/2024 10:39 AM DRY DIP WORKER Adenocarcinoma, NOS of stomach, NOS PHOSPHORUS LEVEL Routine 06/15/2024 10:39 AM DRY DIP WORKER Adenocarcinoma, NOS of stomach, NOS MAGNESIUM LEVEL Routine 06/15/2024 10:39 AM DRY DIP WORKER Adenocarcinoma, NOS of stomach, NOS COMPREHENSIVE METABOLIC PANEL Routine 10:39 AM DRY DIP WORKER Adenocarcinoma of stomach COMPLETE BLOOD COUNT W/ DIFFERENTIAL Routine 06/15/2024 10:39 AM DRY DIP WORKER Adenocarcinoma of stomach .CBC Routine 06/01/2024 11:10 AM DRY DIP WORKER Adenocarcinoma of stomach TRANSFERRIN Routine 06/01/2024 11:10 AM DRY DIP WORKER Iron deficiency anemia, not otherwise specified Adenocarcinoma of stomach FERRITIN Routine 06/01/2024 11:10 AM DRY DIP WORKER Iron deficiency anemia, not otherwise specified Adenocarcinoma of stomach IRON LEVEL Routine 06/01/2024 11:10 AM DRY DIP WORKER Iron deficiency anemia, not otherwise specified Adenocarcinoma of stomach COMPREHENSIVE METABOLIC PANEL Routine 11:10 AM DRY DIP WORKER Adenocarcinoma of stomach COMPLETE BLOOD COUNT W/ DIFFERENTIAL Routine 06/01/2024 11:10 AM DRY DIP WORKER Adenocarcinoma of stomach POC GLUCOSE SCREEN Routine 05/19/2024 1:52 PM DRY DIP WORKER PATHOLOGY BIOPSY INTERPRETATION Routine 05/19/2024 1:10 PM DRY DIP WORKER Adenocarcinoma of stomach MA ESOPHAGOGASTRODUODENOSCOP Y US SCOPE W/ADJ STRXRS 05/19/2024 12:34 PM DRY DIP WORKER Adenocarcinoma of stomach Case Notes 04/24- WAITING FOR TRIAGE TO NV FOR 05/01- Special Needs BROKE BEATER [place] Call Completed 04/30/24ad laproscopy on 04/15/24 POC GLUCOSE SCREEN Routine 05/19/2024 12:21 PM DRY DIP WORKER .CBC Routine 05/18/2024 10:55 AM DRY DIP WORKER Adenocarcinoma, NOS of stomach, NOS CARCINOEMBRYONIC ANTIGEN Routine 024 10:55 AM DRY DIP WORKER Adenocarcinoma, NOS of stomach, NOS LACTATE DEHYDROGENASE Routine 05/18/2024 10:55 AM DRY DIP WORKER Adenocarcinoma, NOS of stomach, NOS PHOSPHORUS LEVEL Routine 05/18/2024 10:55 AM DRY DIP WORKER Adenocarcinoma, NOS of stomach, NOS MAGNESIUM LEVEL Routine 05/18/2024 10:55 AM DRY DIP WORKER Adenocarcinoma, NOS of stomach, NOS COMPREHENSIVE METABOLIC PANEL Routine 10:55 AM DRY DIP WORKER Adenocarcinoma, NOS of stomach, NOS COMPLETE BLOOD COUNT W/ DIFFERENTIAL Routine 05/18/2024 10:55 AM DRY DIP WORKER Adenocarcinoma, NOS of stomach, NOS .CBC Routine 05/04/2024 11:34 AM DRY DIP WORKER Adenocarcinoma, NOS of stomach, NOS RESEARCH PROTOCOL [id number] Routine 05/04 11:34 AM DRY DIP WORKER Adenocarcinoma of stomach CARCINOEMBRYONIC ANTIGEN Routine 11:34 AM DRY DIP WORKER Adenocarcinoma, NOS of stomach, NOS LACTATE DEHYDROGENASE Routine 05/04/2024 11:34 AM DRY DIP WORKER Adenocarcinoma, NOS of stomach, NOS PHOSPHORUS LEVEL Routine 05/04/2024 11:34 AM DRY DIP WORKER Adenocarcinoma, NOS of stomach, NOS MAGNESIUM LEVEL Routine 05/04/2024 11:34 AM DRY DIP WORKER Adenocarcinoma, NOS of stomach, NOS COMPREHENSIVE METABOLIC PANEL Routine 11:34 AM DRY DIP WORKER Adenocarcinoma, NOS of stomach, NOS COMPLETE BLOOD COUNT W/ DIFFERENTIAL Routine 05/04/2024 11:34 AM DRY DIP WORKER Adenocarcinoma, NOS of stomach, NOS VERIFY CATHETER TIP PLACEMENT Routine 3:50 PM DRY DIP WORKER Adenocarcinoma of stomach POC GLUCOSE SCREEN Routine 04/15/2024 3:21 PM DRY DIP WORKER XR CHEST 1 VW PORTABLE Routine 2:45 PM DRY DIP WORKER POC GLUCOSE SCREEN Routine 04/15/2024 1:05 PM DRY DIP WORKER POC GLUCOSE SCREEN Routine 04/15/2024 12:52 PM DRY DIP WORKER CYTOLOGY NON-COMMAND AND CONTROL SPECIALIST INTERPRETATION Routine 04/15/2024 12:33 PM DRY DIP WORKER Adenocarcinoma of stomach PATHOLOGY SURGICAL INTERPRETATION Routine 04/15/2024 12:13 PM DRY DIP WORKER Adenocarcinoma of stomach FL CENTRAL VENOUS PLACE EXCHANGE Routine 04/15/2024 11:40 AM DRY DIP WORKER Adenocarcinoma of stomach POC GLUCOSE SCREEN Routine 04/15/2024 9:22 AM DRY DIP WORKER MA INSJ TUNNELED CTR VAD W/SUBQ PORT AGE 5 YR/> 04/15/2024 9:16 AM DRY DIP WORKER Adenocarcinoma of stomach Special Needs MTL@0800 MA US VASC ACCESS SITS VSL PATENCY NDL ENTRY 04/15/2024 9:16 AM DRY DIP WORKER Adenocarcinoma of stomach Special Needs MTL@0800 MA FLUORO CENTRAL VENOUS ACCESS DEV PLACEMENT 04/15/2024 9:16 AM DRY DIP WORKER Adenocarcinoma of stomach Special Needs MTL@0800 MA LAPS ABD PRTM&OMENTUM DX W/WO SPEC BR/WA SPX 04/15/2024 9:16 AM DRY DIP WORKER Adenocarcinoma of stomach Special Needs MTL@0800 CT ABDOMEN PELVIS W CONTRAST Routine 11:18 AM DRY DIP WORKER .CBC Routine 04/12/2024 9:04 AM DRY DIP WORKER LIPASE LEVEL Routine 04/12/2024 9:04 AM DRY DIP WORKER AMYLASE LEVEL Routine 04/12/2024 9:04 AM DRY DIP WORKER LACTATE DEHYDROGENASE Routine 04/12/2024 9:04 AM DRY DIP WORKER FRACTIONATED BILIRUBIN Routine 9:04 AM DRY DIP WORKER PHOSPHORUS LEVEL Routine 04/12/2024 9:04 AM DRY DIP WORKER MAGNESIUM LEVEL Routine 04/12/2024 9:04 AM DRY DIP WORKER COMPREHENSIVE METABOLIC PANEL Routine 9:04 AM DRY DIP WORKER COMPLETE BLOOD COUNT W/ DIFFERENTIAL Routine 04/12/2024 9:04 AM DRY DIP WORKER .CBC Routine 04/09/2024 11:09 AM DRY DIP WORKER Encounter for other preprocedural examination Atherosclerosis of coronary artery bypass graft without angina pectoris, not otherwise specified THYROID STIMULATING HORMONE Routine 03/21 11:09 AM DRY DIP WORKER Encounter for other preprocedural examination Atherosclerosis of coronary artery bypass graft without angina pectoris, not otherwise specified HEMOGLOBIN A1C Routine 04/09/2024 11:09 AM DRY DIP WORKER 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 Encounter for other preprocedural examination COMPREHENSIVE METABOLIC PANEL Routine 11:09 AM DRY DIP WORKER Encounter for other preprocedural examination Atherosclerosis of coronary artery bypass graft without angina pectoris, not otherwise specified COMPLETE BLOOD COUNT W/ DIFFERENTIAL Routine 04/09/2024 11:09 AM DRY DIP WORKER Encounter for other preprocedural examination Atherosclerosis of coronary artery bypass graft without angina pectoris, not otherwise specified EKG, 12-LEAD (SCHEDULED) Routine 04/09/2024 Adenocarcinoma of stomach Hyperlipidemia, not otherwise specified Encounter for other preprocedural examination Atherosclerosis of coronary artery bypass graft without angina pectoris, not otherwise specified PATHOLOGY OUTSIDE INTERPRETATION Routine 04/02/[address] ABDOMEN AND PELVIS Routine 2023 8:21 AM DRY DIP WORKER Cancer OSI CHEST Routine 03/23/2024 7:37 PM DRY DIP WORKER Cancer OSI CT CHEST ABDOMEN PELVIS Routine 08/2023 7:37 PM DRY DIP WORKER Cancer OSI CHEST Routine 03/23/2024 7:37 PM DRY DIP WORKER Cancer OSI CT CHEST Routine 03/22/2024 8:21 AM DRY DIP WORKER Cancer OSI CT ABDOMEN AND PELVIS Routine 2023 7:36 PM CDT Cancer OSI CHEST Routine 01/20/2024 7:37 PM CDT Cancer OSI CHEST Routine 01/20/2024 7:37 PM CDT Cancer after 01/11/2024 Results * Sodium Level, Urine (11/13/2024 2:01 PM CDT) Urine Sodium 67 mmol/L 11/13/2024 3:28 PM CDT [facility] Comment:Normal range not cyndee ilable for collections less than 24 hours in duration. Urine Voided urine specimen / Unknown Non-blood Collection / Unknown 11/13/2024 2:01 PM CDT 11/13/2024 2:05 PM CDT us Shira Segovia MD URINE ORDERABLES Final Result Performing Organization Address City/[facility] Co de Phone Number [facility] Unless otherwise noted, all lab tests performed by: Division of Pathology and Laboratory Medicine [address] [place] [phone] * Potassium Urine (11/13/2024 2:01 PM CDT) Urine Potassium 73 mmol/L 3:28 PM CDT [facility] Comment:Normal range not cyndee ilable for collections less than 24 hours in duration. Urine Voided urine specimen / Unknown Non-blood Collection / Unknown 11/13/2024 2:01 PM CDT 11/13/2024 2:05 PM CDT us Shira Segovia MD URINE ORDERABLES Final Result [facility] Unless otherwise noted, all lab tests performed by: Division of Pathology and Laboratory Medicine [address] [place] [phone] * Osmolality Urine (11/13/2024 2:01 PM CDT) Pathologist [facility] Urine Osmolality 724 50 - 1,400 mOsm/kg H2O 11/13/2024 3:27 PM CDT [facility] Comment:Urinary osmolality m ay vary widely, depending [...] URINE ORDERABLES Final Result Performing Organization Address [facility] de Phone Number [facility] Unless otherwise noted, all lab tests performed by: Division of Pathology and Laboratory Medicine [address] [place] [phone] * (ABNORMAL) .CBC (11/13/2024 1:57 PM CDT) Only the most recent of17 resultswithin the time period is included. Pathologist [facility] White Blood Cell 9.6 4.1 - 10.5 K/uL 11/13/2024 2:45 PM CDT [facility] Red Blood Cell 11/13/2024 2:45 PM CDT [facility] Comment:See Scanned Document Hemoglobin 11.6(L) 13.3 [...] Comment:See Scanned Document RDW-SD 11/13/2024 2:45 PM [facility] Comment:See Scanned Document Red Cell Diameter Width 11/13/2024 2:45 PM [facility] Comment:See Scanned Document Platelet 165 160 - 397 K/uL 11/13/2024 2:45 PM [facility] Mean Platelet Volume 11/13/2024 2:45 PM [facility] Comment:See Scanned Document Neutrophil % 78.1(H) 43.2 - 72.7 % 11/13/2024 2:45 PM [facility] Neutrophil Abs 7.50(H) 1.95 - 7.25 K/uL 11/13/2024 2:45 PM [facility] Lymphocyte Abs 1.08 1.01 - 3.24 K/uL 11/13/2024 2:45 PM [facility] Blood Peripheral blood specimen / Unknown Venipuncture / Unknown 11/13/2024 1:57 PM CDT 11/13/2024 2:02 PM CDT Gillian Gomez PA-C LAB BLOOD ORDERABLES Final Result [facility] [address] [place] [address] * (ABNORMAL) Comprehensive Metabolic Panel (11/13/2024 1:57 PM CDT) Only the most recent of18 resultswithin the time period is included. Bilirubin Total <0.3 0.0 - 1.2 mg/dL 11/13/2024 2:33 PM [facility] Comment:Indocyanine Green (I CG) may cause falsely elevated bilirubin results. Total and direct bilirubin must not be measured from samples containing indocyanine green. False elevation of total bilirubin can be seen in patients with IgG concentrations above 28 g/L. eGFR 100 >=60 mL/min/1. 73 sq. m 11/13/2024 2:33 PM [facility] Comment: The eGFRcr is calculated with [...] - 23 mg/dL 11/13/2024 2:33 PM CDT [facility] Glucose Level 217(H) 70 - 99 mg/dL 11/13/2024 2:33 PM CDT [facility] Comment: Effective 12/14/15, the glucose [...] Organization Address City/[facility]/ZIP Co de Phone Number [facility] [address] [place] [address] * Osmolality (11/13/2024 1:57 PM CDT) Osmolality 291 275 - 300 mOsm/kg 11/13/2024 3:30 PM CDT [facility] Comment:Units in mOsm per kg of water. Blood Peripheral blood specimen / Unknown Venipuncture / Unknown 11/13/2024 1:57 PM CDT 11/13/2024 2:02 PM CDT Shira Segovia MD LAB BLOOD ORDERABLES Final Resul t [facility] Unless otherwise noted, all lab tests performed by: Division of Pathology and Laboratory Medicine [facility] [place] [address] * X-ray Foot 3+ Views Bilateral (11/13/2024 [...] - 99 mg/dL 10/29/2024 11:52 AM CDT [facility] POC Sample Type Capillary 10/29/2024 11:52 AM CDT [facility] Blood 10/29/2024 11:5 0 AM CDT 10/29/2024 11:52 AM CDT Narrative [facility] - 10/29/2024 11:52 AM CDT Capillary blood [...] - DEVICE Final Result Performing Organization Address [facility] Co de Phone Number [facility] Unless otherwise noted, all lab tests performed by: Division of Pathology and Laboratory Medicine [address] [place] [phone] * (ABNORMAL) Hemoglobin A1c (10/28/2024 11:01 AM CDT) Only the most recent of2 resultswithin the time period is included. Hemoglobin A1c 6.3(H) 4.3 - 5.6 % 10/28/2024 7:05 PM CDT [facility] Blood Peripheral blood specimen / Unknown Venipuncture / Unknown 10/28/2024 11:01 AM CDT 10/28/2024 11:02 AM CDT Narrative [facility] - 10/28/2024 7:05 PM CDT HbA1c values >=6.5% are diagnostic of diabetes mellitus. Diagnosis should be confirmed by repeat testing. Therapeutic Action suggested: >8.0% HbA1c; Goal of therapy: <7.0% HbA1c Bessy Gaming APRN LAB BLOOD ORDERABLES Fin al Result [facility] Unless otherwise noted, all lab tests performed by: Division of Pathology and Laboratory Medicine [address] [place] [phone] * EKG, 12-Lead (Portable) (10/28/2024) Only the [...] evidence of bowel obstruction. Mohan Torres MD [facility] ORDER YASHIRA Final Result * (ABNORMAL) POC Chem 8 without Hemoglobin and Hematocrit (10/25/2024 8:26 AM CDT) POC Sodium 136(L) 138 - 146 mmol/L 10/25/2024 8:[address] [facility] POC Potassium 4.9 3.5 - 4.9 mmol/L 10/25/2024 8:[address] [facility] POC Chloride 101 98 - 109 mmol/L 10/25/2024 8:[address] [facility] POC VTCO2 25 24 - 29 mmol/L 10/25/2024 8:[address] [facility] POC Anion Gap 16 10 - 20 mmol/L 10/25/2024 8:[address] [facility] POC BUN 16 8 - 26 mg/dL 10/25/2024 8:[address] [facility] POC Creatinine 0.8 0.6 - 1.3 mg/dL 10/25/2024 8:[address] [facility] Comment:Medications, especia lly hydroxyurea or supplements, such as ascorbate, can interfere with test results causing a falsely and significantly higher result than expected. If a problem is suspected with a patient's result, a sample should be sent to the laboratory for confirmatory testing. POC I Glu 147(H) 70 - 99 mg/dL 10/25/2024 8:[address] [facility] Comment:Medications, especia lly hydroxyurea or supplements, such as ascorbate, can interfere with test results causing a falsely and significantly higher result than expected. If a problem is suspected with a patient's result, a sample should be sent to the laboratory for confirmatory testing. POC Ionized Calcium 1.20 1.12 - 1.32 mmol/L 10/25/2024 8:[address] [facility] POC Sample Type Venous 8:[address] [facility] POC eGFR 101 >=60 mL/min/1.7 3 sq. m 10/25/2024 8:[address] [facility] Comment: The eGFRcr is calculated with [...] AM CDT 10/25/2024 8:30 AM CDT Narrative [facility] - 10/25/2024 8:30 AM CDT Method description: [...] OF CARE TEST ORDERABLE S Final Result [facility] Unless otherwise noted, all lab tests performed by: Division of Pathology and Laboratory Medicine [address] [place] [phone] * Phosphorus Level (10/25/2024 8:15 AM CDT) Only the most recent of10 resultswithin the time period is included. Phosphorus Level 2.7 2.5 - 4.5 mg/dL 10/25/2024 8:55 AM CDT [facility] Blood Peripheral blood specimen / Unknown Port / Unknown 10/25/2024 8:15 AM CDT 10/25/2024 8:22 AM CDT Mohan Torres MD LAB BLOOD ORDERABLES Final R esult [facility] Unless otherwise noted, all lab tests performed by: Division of Pathology and Laboratory Medicine [address] [place] [phone] * Magnesium Level (10/25/2024 8:15 AM CDT) Only the most recent of10 resultswithin the time period is included. Magnesium Level 2.0 1.6 - 2.6 mg/dL 10/25/2024 8:55 AM CDT [facility] Blood Peripheral blood specimen / Unknown Port / Unknown 10/25/2024 8:15 AM CDT 10/25/2024 8:22 AM CDT Mohan Torres MD LAB BLOOD ORDERABLES Final R esult [facility] Unless otherwise noted, all lab tests performed by: Division of Pathology and Laboratory Medicine [address] [place] [phone] * (ABNORMAL) Lipase Level (10/25/2024 8:15 AM CDT) Only the most recent of3 resultswithin the time period is included. Lipase Level 202(H) 13 - 60 U/L 10/27/2024 7:12 AM CDT [facility] Blood Peripheral blood specimen / Unknown Port / Unknown 10/25/2024 8:15 AM CDT 10/25/2024 8:22 AM CDT Narrative [facility] - 10/27/2024 7:12 AM CDT Reference range established based on adult population us Gillian Gomez PA-C LAB BLOOD ORDERABLES Final Result [facility] Unless otherwise noted, all lab tests performed by: Division of Pathology and Laboratory Medicine [address] [place] [phone] * LDH (10/25/2024 8:15 AM CDT) Only the most recent of10 resultswithin the time period is included. LDH 186 135 - 225 U/L 10/25/2024 8:55 AM CDT [facility] Blood Peripheral blood specimen / Unknown Port / Unknown 10/25/2024 8:15 AM CDT 10/25/2024 8:22 AM CDT Narrative [facility] - 10/25/2024 8:55 AM CDT Results greater than 1651 U/L may not be reliable due to matrix effect with extended dilution as it exceeds the quality control industrial engineer's recommended limit. Caution should be exercised when interpreting such values and done in conjunction with clinical context. Mohan Torres MD LAB BLOOD ORDERABLES Final R esult [facility] Unless otherwise noted, all lab tests performed by: Division of Pathology and Laboratory Medicine [address] [place] [phone] * (ABNORMAL) Amylase Level (10/25/2024 8:15 AM CDT) Only the most recent of3 resultswithin the time period is included. Amylase Level 107(H) 28 - 100 U/L 10/27/2024 7:12 AM CDT [facility] Blood Peripheral blood specimen / Unknown Port / Unknown 10/25/2024 8:15 AM CDT 10/25/2024 8:22 AM CDT Gillian Gomez PA-C LAB BLOOD ORDERABLES Final Result Performing Organization Address City/[facility]/ZIP Co de Phone Number [facility] Unless otherwise noted, all lab tests performed by: Division of Pathology and Laboratory Medicine [address] [place] [phone] * Fractionated Bilirubin (10/25/2024 7:40 AM CDT) Only the most recent of2 resultswithin the time period is included. Bilirubin Direct 10/26/19 8:50 AM CDT [facility] Comment: Direct and indirect bilirubin will not be reported when Total bilirubin result is <0.3 mg/dL Indocyanine Green (ICG) may cause falsely elevated bilirubin results. Total and direct bilirubin must not be measured from samples containing indocyanine green. Bilirubin Indirect 2024 8:50 AM CDT [facility] Comment:Direct and indirect bilirubin will not be reported when Total bilirubin result is <0.3 mg/dL Bilirubin Total <0.3 0.0 - 1.2 mg/dL 10/25/2024 8:50 AM CDT [facility] Comment: Direct and indirect bilirubin will not [...] MD LAB BLOOD ORDERABLES Final R esult [facility] Unless otherwise noted, all lab tests performed by: Division of Pathology and Laboratory Medicine [address] [place] [phone] * CEA (10/25/2024 7:40 AM CDT) Only the most recent of8 resultswithin the time period is included. Carcinoembryonic Antigen 3.3 <=3.8 ng/mL 10/25/2024 9:14 AM CDT [facility] Blood Venous blood specimen / Unknown Port / Unknown 10/25/2024 7:40 AM CDT 10/25/2024 8:14 AM CDT Narrative [facility] - 10/25/2024 9:14 AM CDT Reference Ranges (age 20-69 years): Non-smoker: <= 3.8 ng/mL Smoker: <= 5.5 ng/mL This test is measured by electrochemiluminescence immunoassay on [employer]el[employer] Nikki immunoassay analyzers. Results obtained in different methods are not interchangeable. us Gillian Gomez PA-C LAB BLOOD ORDERABLES Final Result Performing Organization Address City/[facility] de Phone Number [facility] Unless otherwise noted, all lab tests performed by: Division of Pathology and Laboratory Medicine [address] [place] [phone] * Research Protocol [id number] (07/15/2024 10:01 AM DRY DIP WORKER) Only the most recent of2 resultswithin the time period is included. Pathologist [facility] Research Protocol Specimen Specimen Collected, Ready for Pickup. 07/15/2024 12:00 PM DRY DIP WORKER [facility] Blood Venipuncture / Unknown 07/15/2024 10:01 AM DRY DIP WORKER 07/15/2024 10:10 AM DRY DIP WORKER Marianela Hutchinson MD [facility] Z CODES Final Re sult Performing Organization Address [facility] Co de Phone Number [facility] Unless otherwise noted, all lab tests performed by: Division of Pathology and Laboratory Medicine [address] [place] [phone] * IHC Workup (07/07/2024 12:29 PM DRY DIP WORKER) Tissue 07/07/2024 12:2 9 PM DRY DIP WORKER 07/07/2024 12:29 PM DRY DIP WORKER Gillian Gomez PA-C [facility] BIOMARKER ORDERABLE S Final Result Performing Organization Address [facility] de Phone Number [facility] [address] [address], [place] * Pathology Biopsy Interpretation (06/30/2024 12:51 PM DRY DIP WORKER) Only the most recent of2 resultswithin the time period is included. Addendum 1 By immunohistochemistry, approximately 10% of the tumor cells show weakly to moderately cytoplasmic staining for claudin 18. By immunohistochemistry the combined positive score (CPS) for PD-L1 is <1. 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 07/10/2024 8:47 AM [facility] at 1826 DRY DIP WORKER Gross Description A: Esophagus, lower esophageal ulcer at 37cm: Multiple soft light castillo tissue fragments, 0.7 x 0.6 x 0.1 cm in aggregate, entirely submitted in A1. ET 07/10/2024 8:47 AM [facility] Biomarker Block(s) Block for biomarker testing: A1 07/10/2024 8:47 AM [facility] Disclaimer "Some tests reported here may have been developed and performance characteristics determined by [facility] Pathology and Laboratory Medicine. These tests have not been specifically cleared or approved by the U.S. Food and Drug Administration. If applicable, controls were reviewed and showed appropriate reactivity." 07/10/2024 8:47 AM [facility] Tissue (Esophagus) 06/30/2024 12:51 PM DRY DIP WORKER 06/30/2024 2:51 PM DRY DIP WORKER us Brandon Galo MD LAB PATHOLOGY ORDERA ANDERSS Edited Result - Final [address] [address], * (ABNORMAL) POC Chem 8 (06/30/2024 11:10 AM DRY DIP WORKER) Only the most recent of2 resultswithin the time period is included. POC Sodium 136(L) 138 - 146 mmol/L 06/30/2024 11:13 AM [facility] POC Potassium 4.5 3.5 - 4.9 mmol/L 06/30/2024 11:13 AM [facility] POC Chloride 100 98 - 109 mmol/L 06/30/2024 11:13 AM [facility] POC VTCO2 27 24 - 29 mmol/L 06/30/2024 11:13 AM [facility] POC Anion Gap 14 10 - 20 mmol/L 06/30/2024 11:13 AM [facility] POC BUN 30(H) 8 - 26 mg/dL 06/30/2024 11:13 AM [facility] POC Creatinine 1.1 0.6 - 1.3 mg/dL 06/30/2024 11:13 AM [facility] Comment:Medications, especia lly hydroxyurea or supplements, such as ascorbate, can interfere with test results causing a falsely and significantly higher result than expected. If a problem is suspected with a patient's result, a sample should be sent to the laboratory for confirmatory testing. POC I Glu 182(H) 70 - 99 mg/dL 06/30/2024 11:13 AM [facility] Comment:Medications, especia lly hydroxyurea or supplements, such as ascorbate, can interfere with test results causing a falsely and significantly higher result than expected. If a problem is suspected with a patient's result, a sample should be sent to the laboratory for confirmatory testing. POC Ionized Calcium 1.26 1.12 - 1.32 mmol/L 06/30/2024 11:13 AM [facility] POC Hct 39.0 38.0 - 51.0 % 06/30/2024 11:13 AM [facility] POC Hgb 13.3 12.0 - 17.0 gm/dL 06/30/2024 11:13 AM [facility] Comment:Hematocrit values fr om the iSTAT [...] standard. POC Sample Type Venous 11:13 AM [facility] POC eGFR 77 >=60 mL/min/1.7 3 sq. m 06/30/2024 11:13 AM [facility] Comment: The eGFRcr is calculated with [...] for CKD. Blood 06/30/2024 11:1 0 AM DRY DIP WORKER 06/30/2024 11:13 AM DRY DIP WORKER Narrative [facility] - 06/30/2024 11:13 AM DRY DIP WORKER Method description: The i-STAT is an analyzer [...] DE VICE Final Result Performing Organization Address [facility] Co de Phone Number [facility] Unless otherwise noted, all lab tests performed by: Division of Pathology and Laboratory Medicine [address] [place] [phone] * EKG, 12-Lead (Scheduled) (06/29/2024) Only the most recent of2 resultswithin the time period is included. Mary Kay Santamaria APRN ECG ORDERABLES Final R esult Performing Organization Address [facility] Co de Phone Number [facility] * PETCT F18 FDG (Fluorodeoxyglucose) with contrast (06/20/2024 12:42 PM DRY DIP WORKER) Anatomical Region Laterality Modality Whole Body Positron Emissio n Tomography (PET) 06/20/2024 3:10 PM DRY DIP WORKER Impressions 06/20/2024 4:38 PM DRY DIP WORKER Biopsy-proven malignancy in the region of the [...] and potentially actionable. Narrative 06/20/2024 4:38 PM DRY DIP WORKER FULL RESULT: Examination: 18F-FDG-PET/CT with contrast, 06/20/2024 [...] * Transferrin with TIBC (06/01/2024 11:10 AM DRY DIP WORKER) Transferrin 211 200 - 360 mg/dL 06/01/2024 12:15 PM DRY DIP WORKER [facility] Total Iron Binding Capacity 295 250 - 450 mcg/dL 06/01/2024 12:15 PM DRY DIP WORKER [facility] Blood Peripheral blood specimen / Unknown Venipuncture / Unknown 06/01/2024 11:10 AM DRY DIP WORKER 06/01/2024 11:23 AM DRY DIP WORKER Marianela Hutchinson MD LAB BLOOD ORDERABLES Final Re sult [facility] Unless otherwise noted, all lab tests performed by: Division of Pathology and Laboratory Medicine [address] [place] [phone] * (ABNORMAL) Iron Level (06/01/2024 11:10 AM DRY DIP WORKER) Iron Level 38(L) 59 - 158 mcg/dL 06/01/2024 12:15 PM DRY DIP WORKER [facility] Is patient fasting? No 06/01/2024 12:15 PM DRY DIP WORKER [facility] Blood Peripheral blood specimen / Unknown Venipuncture / Unknown 06/01/2024 11:10 AM DRY DIP WORKER 06/01/2024 11:23 AM DRY DIP WORKER us Marianela Hutchinson MD LAB BLOOD ORDERABLES Final Re sult Performing Organization Address [facility] Co de Phone Number [facility] Unless otherwise noted, all lab tests performed by: Division of Pathology and Laboratory Medicine [address] [place] [address] Unless otherwise noted, all lab tests performed by: Division of Pathology and Laboratory Medicine [address] [place] [phone] * Ferritin Level (06/01/2024 11:10 AM DRY DIP WORKER) Ferritin Level 59 30 - 400 ng/mL 06/01/2024 12:15 PM DRY DIP WORKER [facility] Blood Peripheral blood specimen / Unknown Venipuncture / Unknown 06/01/2024 11:10 AM DRY DIP WORKER 06/01/2024 11:23 AM DRY DIP WORKER Narrative [facility] - 06/01/2024 12:15 PM DRY DIP WORKER Reference range established for age 20 - 60 years us Marianela Hutchinson MD LAB BLOOD ORDERABLES Final Re sult Performing Organization Address City/[facility]/ZIP Co de Phone Number [facility] Unless otherwise noted, all lab tests performed by: Division of Pathology and Laboratory Medicine [address] [place] [phone] * Tip Verification Central Vascular Access Device (04/15/2024 3:50 PM DRY DIP WORKER) Narrative John Fong MD - 04/15/2024 3:50 PM DRY DIP WORKER John Fong MD 04/15/2024 3:50 PM Central Vascular Access Device Tip Verification Performed by: John Fong MD Authorized by: John Fong MD CVAD Properties Date device placed: 04/15/2024 Device placement location: [facility] Catheter Type: Implanted venous port Catheter lumen: Single lumen Vein location: Internal jugular vein Laterality: Right Tip in good position and cleared for infusion us John Fong MD IV THERAPY ORDERABLES Final Re sult * XR Chest 1 View Portable (04/15/2024 2:45 PM DRY DIP WORKER) Anatomical Region Laterality Modality Chest Digital Radiogra phy 04/15/2024 2:50 PM DRY DIP WORKER Impressions 04/15/2024 2:53 PM DRY DIP WORKER 1. Right infusion port catheter terminates over [...] and potentially actionable. Narrative 04/15/2024 2:53 PM DRY DIP WORKER FULL RESULT: Examination: XR CHEST 1 VW [...] IMAGING ORDERAB LES Final Result * Cytology Non-Size Maker Interpretation (04/15/2024 12:33 PM DRY DIP WORKER) Gross Description 4 Pap Stain Slides 750 ml. clear yellow fluid Specimen concentrated by cytocentrifugation technique 4 4:07 PM DRY DIP WORKER [facility] Major Classification [facility]/benign 4 4:07 PM DRY DIP WORKER [facility] at 1607 DRY DIP WORKER Diagnosis Peritoneal washing: No metastatic carcinoma identified Reactive mesothelial cells and histiocytes 4 4:07 PM DRY DIP WORKER [facility] at 1607 DRY DIP WORKER Retained/Biomark er Testing SR:4S 4 4:07 PM DRY DIP WORKER [facility] Informational Points Some tests reported here may have been developed and performance characteristics determined by [facility] Pathology and Laboratory Medicine. These tests have not been specifically cleared or approved by the U.S. Food and Drug Administration. 4 4:07 PM DRY DIP WORKER [facility] Washing (Peritoneal Washing) 04/15/2024 12:33 PM DRY DIP WORKER 04/15/2024 1:10 PM DRY DIP WORKER John Fong MD LAB CYTOLOGY ORDERABLES Final Result Performing Organization Address [facility] de Phone Number [address] [address], * Pathology Surgical Interpretation (04/15/2024 12:13 PM DRY DIP WORKER) Submitted Clinical History Adenocarcinoma of stomach [C16.9] 04/20/2024 8:13 PM DRY DIP WORKER [facility] Diagnosis A. Falciform ligament, resection: Fibroadipose tissue, no tumor present 04/20/2024 8:13 PM DRY DIP WORKER [facility] at 2013 DRY DIP WORKER Gross Description A: Falciform ligament, falciorm ligament biopsy....or 16: Consists of a fragment of castillo-yellow, lobulated fat (0.8 x 0.6 x 0.5 cm) entirely submitted in cassette A1. EF 04/20/2024 8:13 PM [facility] Disclaimer "Some tests reported here may have been developed and performance characteristics determined by [facility] Pathology and Laboratory Medicine. These tests have not been specifically cleared or approved by the U.S. Food and Drug Administration. If applicable, controls were reviewed and showed appropriate reactivity." 04/20/2024 8:13 PM DRY DIP WORKER [facility] Tissue (Falciform Ligament) 04/15/2024 12:13 PM DRY DIP WORKER 04/15/2024 1:18 PM DRY DIP WORKER John Fong MD LAB PATHOLOGY ORDERABLES Final Result Performing Organization Address City/[facility]/ZIP Co de Phone Number [address] [address], [place] * [place] Central Venous Place Exchange (04/15/2024 11:40 AM DRY DIP WORKER) Narrative Systemgenerated, Documentation - 04/15/2024 11:40 AM DRY DIP WORKER This procedure requires no interpretation from the radiologist. us John Fong MD IMG FLUOROSCOPY ORDERABLES Fin al Result * CT Abdomen Pelvis with IV Contrast (04/12/2024 11:18 AM DRY DIP WORKER) Anatomical Region Laterality Modality Abdomen, Pelvis Computed Tomogra phy 04/12/2024 11:5 2 AM DRY DIP WORKER Impressions 04/12/2024 12:11 PM DRY DIP WORKER Wall thickening and slight mucosal irregularity of [...] and potentially actionable. Narrative 04/12/2024 12:11 PM DRY DIP WORKER FULL RESULT: Examination: CT ABDOMEN PELVIS W [...] Final Result * TSH (04/09/2024 11:09 AM DRY DIP WORKER) Pathologist [facility] Thyroid Stimulating Hormone 1.53 0.27 - 4.20 mcunit/mL 04/09/2024 12:23 PM DRY DIP WORKER [facility] Blood Peripheral blood specimen / Unknown Venipuncture / Unknown 04/09/2024 11:09 AM DRY DIP WORKER 04/09/2024 11:19 AM DRY DIP WORKER Ceci Nicholson MD LAB BLOOD ORDERABLES Final Resu lt [facility] Unless otherwise noted, all lab tests performed by: Division of Pathology and Laboratory Medicine [address] [place] [phone] * Pathology Outside Interpretation (04/02/2024) Pathologist [facility] Materials Received Accession#, Stained, Block, Unstained Collected Received A. [id number], 20 SS, 0 BLOCKS, 0 USS 04/02/2024 04/22/2024 04/22/2024 5:36 PM DRY DIP WORKER [facility] Diagnosis Outside ([id number], 20 SS, 0 BLOCKS, 0 USS, collected [...] FEATURES. See comment. FY/ISAURO 04/22/2024 5:36 PM [facility] Cashually at 1736 DRY DIP WORKER Comment Part A. There is no evidence of malignancy on H&E and immunohistochemical stain for Cytokeratin AE1/AE3. Of note, the biopsy may not be financial representative of the entire lesion. Please correlate [...] immunohistochemistry: Negative (Score: 0) 04/22/2024 5:36 PM [facility] [employer] Biomarker Block(s) Block for biomarker testing: C1 Normal block: N/A 04/22/2024 5:36 PM [facility] Disclaimer "Some tests reported here may have been developed and performance characteristics determined by [facility] Pathology and Laboratory Medicine. These tests have not been specifically cleared or approved by the U.S. Food and Drug Administration. If applicable, controls were reviewed and showed appropriate reactivity." 04/22/2024 5:36 PM [facility] Tissue 04/02/2024 04/22/2024 6:4 0 AM DRY DIP WORKER us Sybil Edmonds MD LAB PATHOLOGY ORDERABLES Final R esult [facility] [place] [address], [place] * OSI CT Abdomen and Pelvis (04/01/2024 8:21 AM DRY DIP WORKER) Only the most recent of2 resultswithin the time period is included. Narrative Systemgenerated, Documentation - 04/27/2024 8:22 AM DRY DIP WORKER Study acquired at another institution. For comparison only. No MD Pernell originated interpretation requested or available. [facility] Regan Zhu DO IMG OUTSIDE IMAGE ORDERAB LES Final Result * OSI CT CHEST ABDOMEN PELVIS (03/23/2024 7:37 PM DRY DIP WORKER) Narrative Systemgenerated, Documentation - 04/09/2024 7:37 PM DRY DIP WORKER Study acquired at another institution. For comparison only. No MD Pernell originated interpretation requested or available. Margoth Souza MD IMG OUTSIDE IMAGE ORDERABLES Fin al Result * OSI Chest (03/23/2024 7:37 PM DRY DIP WORKER) Only the most recent of4 resultswithin the time period is included. Narrative Systemgenerated, Documentation - 04/09/2024 7:37 PM DRY DIP WORKER Study acquired at another institution. For comparison only. No MD Pernell originated interpretation requested or available. Margoth Souza MD IMG OUTSIDE IMAGE ORDERABLES Fin al Result * OSI CT Chest (03/22/2024 8:21 AM DRY DIP WORKER) Narrative Systemgenerated, Documentation - 04/27/2024 8:21 AM DRY DIP WORKER Study acquired at another institution. For comparison only. No MD Gimenez originated interpretation requested or available. [facility] Regan Zhu DO IMG OUTSIDE [...] based on Advanced Directive Documentation Care Teams Jacquard Fixer Relationship Specialty Start Date End Date Margoth Souza MD [address] [place] [phone] [email or web address] PCP - General Urology 07/30/23 04/14/24 Eagle Zhu DO [address] [place] [phone] [email or web address] PCP - External Primary Care Provider Family Practice 04/08/24 Marianela Hutchinson MD [address] [place] [phone] [email or web address] PCP - General Gastrointestinal Medical Oncology 05/04/24 Mary Jane Cassidy MD [address] [place] [phone] [email or web address] Consulting Physician Endocrinology 12/09/23 Barry He MD [address] [place] [phone] [email or web address] Consulting Physician Internal Medicine 12/23/23 Patience Hunt MD [address] [place] [phone] [email or web address] Consulting Physician Endocrinology 12/31/23 Marianela Hutchinson MD [address] [place] [phone] [email or web address] Consulting Physician Gastrointestinal Medical Oncology 04/13/24 Margoth Souza MD [address] [place] [phone] [email or web address] Consulting Physician Urology 04/15/24 Ceci Nicholson MD [address] [place] [phone] [email or web address] Consulting Physician Internal Medicine 04/09/24 Sigifredo Davenport MD [address] [place] [phone] [email or web address] Consulting Physician Internal Medicine 06/29/24 Abilio Ng PA-C [address] [place] [address] [phone] Physician Director Mortgage Interventional Radiology 10/02/23 Shira Segovia MD [address] [place] [address] [phone] [email or web address] Consulting Physician Internal Medicine 10/30/24 Ancelmo Love MD [address] [place] [id number] General Surgery 01/05/25
[2025-01-10] MEDS ORDERED: PANTOPRAZOLE 40 MG INJ ONE (20:42)
[2025-01-10] MEDS ORDERED: METOCLOPRAMIDE 10 MG/2mL INJ ONE (20:42)
[2025-01-10] MEDS ORDERED: FENTANYL CITR 100 MCG/2 ML ONE (21:15)
[2025-01-10] MEDS ORDERED: NA CHLORIDE 0.9% 1,000 ML ONE ×2 (21:17→22:18)
--- NOTE | 2025-01-10 21:31 | RAD REPORT ---
Procedure: Chest Single View HISTORY: Abdominal pain COMPARISON: October 2024 FINDINGS: The lungs appear clear of acute infiltrate. No significant pleural effusion noted. The heart is normal size. Central venous catheter in place. Post surgical changes involve the chest IMPRESSION: No acute abnormality is displayed.
[2025-01-10 22:12] LABS: Absolute Lymphocytes (CBC) 0.8 K/uL (0.7-4.9); Hematocrit 30.0 % (39.6-49.0); Hemoglobin 10.0 g/dL (13.6-17.9); MCH 25.4 pg (27.0-35.0); MCHC 33.2 g/dL (32.0-36.0); MCV 76.4 fL (80-100); MPV 6.9 fL (7.6-11.3); Nucleated RBC Absolute Count 0.0 (0-0); Nucleated Red Blood Cells % 0.0 % (0-0); RBC Red Blood Cell Count 3.93 M/uL (4.33-5.43); White Blood Count 10.30 thou/uL (4.3-10.9)
[2025-01-10 22:13] LABS: PT Prothrombin Time 14.4 SECONDS (10-13.0); Protime INR 1.28
[2025-01-10 22:29] LABS: Albumin 2.9 g/dL (3.4-5.0); Albumin/Globulin Ratio 0.5 (1.1-1.8); Alkaline Phosphatase 121 U/L (45-117); Anion Gap 9.1 mEq/L (5.0-15.0); BUN Blood Urea Nitrogen 33 mg/dL (7-18); Globulin 5.5 g/dL (2.3-3.5); Glucose Level 168 mg/dL (74-106); Magnesium 1.8 mg/dL (1.6-2.4); NT PRO-BNP 2616 pg/mL (<125); Potassium 4.1 mEq/L (3.5-5.1); Troponin High Sensitivity 14.0 pg/mL (<58.9)
[2025-01-10 22:53] LABS: ALT/SGPT < 14 U/L (16-61); AST/SGOT < 10 U/L (15-37); Bilirubin Indirect, Calculated 0.1 mg/dL (0.2-0.8)
--- NOTE | 2025-01-10 23:06 | EDPHYS ---
Physician Documentation [facility] Name: Zeke Mackay Age: 60 yrs Sex: Male : 1965 Arrival Date: 01/10/2025 Time: 20:07 Bed 17 Private MD: RAVIN Physician Rashi Gimenez HPI: 01/10 20:56 This 60 yrs old Male presents to ER via Ambulatory with complaints of Nausea. shandra 20:56 The patient presents to the emergency department with nausea, vomiting, that is shandra intermittent. Onset: The symptoms/episode began/occurred 2 day(s) ago. Possible causes: unknown. The symptoms are aggravated by nothing. The symptoms are alleviated by nothing. Associated signs and symptoms: Pertinent positives: anorexia, nausea. Severity of symptoms: At their worst the symptoms were moderate in the emergency department the symptoms are unchanged. The patient has experienced similar episodes in the past, multiple times. 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 - Infectious Disease History:: Denies. - Social history:: Smoking status: Patient denies any tobacco usage or history of. Patient uses street drugs, marijuana. ROS: 21:03 Constitutional: Negative for fever, chills, and weight loss, Eyes: Negative for injury, shandra pain, redness, and discharge, ENT: Negative for injury, pain, and discharge, Neck: Negative for injury, pain, and swelling, Cardiovascular: Negative for chest pain, palpitations, and edema, Respiratory: Negative for shortness of breath, cough, wheezing, and pleuritic chest pain, Back: Negative for injury and pain, : Negative for injury, bleeding, discharge, and swelling, MS/Extremity: Negative for injury and deformity, Skin: Negative for injury, rash, and discoloration, Neuro: Negative for headache, weakness, numbness, tingling, and seizure, Psych: Negative for depression, anxiety, suicide ideation, homicidal ideation, and hallucinations, Allergy/Immunology: Negative for hives, rash, and allergies, Endocrine: Negative for neck swelling, polydipsia, polyuria, polyphagia, and marked weight changes, Hematologic/Lymphatic: Negative for swollen nodes, abnormal bleeding, and unusual bruising, 21:03 Abdomen/GI: Positive for nausea and vomiting, anorexia, Exam: 21:03 Constitutional: This is a well developed, well nourished patient who is awake, alert, shandra and in no acute distress. Head/Face: Normocephalic, atraumatic. Eyes: Pupils equal round and reactive to light, extra-ocular motions intact. Lids and lashes normal. Conjunctiva and sclera are non-icteric and not injected. Cornea within normal limits. Periorbital areas with no swelling, redness, or edema. ENT: Nares patent. No nasal discharge, no septal abnormalities noted. Tympanic membranes are normal and external auditory canals are clear. Oropharynx with no redness, swelling, or masses, exudates, or evidence of obstruction, uvula midline. Mucous membranes moist. Neck: Trachea midline, no thyromegaly or masses palpated, and no cervical lymphadenopathy. Supple, full range of motion without nuchal rigidity, or vertebral point tenderness. No Meningismus. Chest/axilla: Normal chest wall appearance and motion. Nontender with no deformity. No lesions are appreciated. Cardiovascular: Regular rate and rhythm with a normal S1 and S2. No gallops, murmurs, or rubs. Normal PMI, no JVD. No pulse deficits. Respiratory: Lungs have equal breath sounds bilaterally, clear to auscultation and percussion. No rales, rhonchi or wheezes noted. No increased work of breathing, no retractions or nasal flaring. Back: No spinal tenderness. No costovertebral tenderness. Full range of motion. Male : Normal genitalia with no discharge or lesions. Skin: Warm, dry with normal turgor. Normal color with no rashes, no lesions, and no evidence of cellulitis. MS/ Extremity: Pulses equal, no cyanosis. Neurovascular intact. Full, normal range of motion., bilateral aka Neuro: Awake and alert, GCS 15, oriented to person, place, time, and situation. Cranial nerves II-XII grossly intact. Motor strength 5/5 in all extremities. Sensory grossly intact. Cerebellar exam normal. Normal gait. Psych: Awake, alert, with orientation to person, place and time. Behavior, mood, and affect are within normal limits. 21:03 ECG was reviewed by the Attending Physician. 21:03 Abdomen/GI: Inspection: abdomen appears normal, Bowel sounds: normal, Palpation: abdomen is soft and non-tender, Liver: no appreciated palpable abnormalities, Hernia: not appreciated, Vital Signs: 20:17 BP 192 / 71; Pulse 75; Resp 16; Temp 98.3; Pulse Ox 99% on R/A; Pain 0/10; dd2 21:30 BP 187 / 97; Pulse 88; Resp 20; Temp 98(O); Pulse Ox 99% on R/A; Weight 77.11 kg; tb4 Height 6 ft. 2 in. ; Pain 0/10; 22:26 BP 170 / 76; Pulse 84; Resp 18; Pulse Ox 99% on R/A; Pain 0/10; tb4 23:31 BP 149 / 59; Pulse 72; Resp 17; Pulse Ox 99% on R/A; Pain 0/10; tb4 23:57 BP 151 / 61; Pulse 72; Resp 18; Pulse Ox 100% on R/A; Pain 0/10; tb4 21:30 Body Mass Index 21.83 (77.11 kg, 187.96 cm) tb4 20:17 Pain Scale: Adult dd2 21:30 Pain Scale: Adult tb4 22:26 Pain Scale: Adult tb4 23:31 Pain Scale: Adult tb4 23:57 Pain Scale: Adult tb4 MDM: 20:13 Medical Screening Exam initiated [facility] 20:17 Medical Screening Exam initiated [facility] 01/10 20:14 Order name: Basic Metabolic Panel; Complete Time: 23:05 [facility] 01/10 20:14 Order name: CBC with Diff; Complete Time: 22:16 [facility] 01/10 20:14 Order name: LFT's; Complete Time: 23:05 [facility] 01/10 20:14 Order name: Magnesium; Complete Time: 23:05 [facility] 01/10 20:14 Order name: NT PRO-BNP; Complete Time: 23:05 [facility] 01/10 20:14 Order name: PT-INR; Complete Time: 22:16 [facility] 01/10 20:14 Order name: Troponin HS; Complete Time: 23:05 [facility] 01/10 20:14 Order name: XRAY Chest (1 view); Complete Time: 21:53 [facility] 01/10 20:14 Order name: Cardiac monitoring; Complete Time: 22:02 [facility] 01/10 20:14 Order name: EKG - Nurse/Tech; Complete Time: 20:51 [facility] 01/10 20:14 Order name: IV Saline Lock; Complete Time: 21:06 [facility] 01/10 20:14 Order name: Labs collected and sent; Complete Time: 21: [facility] 01/10 20:14 Order name: O2 Per Protocol; Complete Time: : [facility] 01/10 20:14 Order name: O2 Sat Monitoring; Complete Time: : [facility] 01/10 21:18 Order name: Misc. Order: RECOLLECT ALL LABS ; Complete Time: 22:01 [facility] 01/10 22:33 Order name: Misc. Order: TAKE ALL USUAL MEDS; Complete Time: 22:49 shandra EC:03 Rate is 76 beats/min. Rhythm is regular. QRS [place] is Normal. TN interval is normal. QRS shandra interval is normal. QT interval is normal. No Q waves. T waves are Normal. No ST changes noted. Clinical impression: NSR w/ Non-specific ST/T Changes and No evidence of ischemia. Interpreted by me. Reviewed by me. Administered Medications: 21:13 Drug: Pantoprazole IVP 40 mg IVP once Route: IVP; Site: left forearm; tb4 22:02 Follow up: Response: No adverse reaction; Nausea is decreased tb4 21:14 Drug: metoCLOPramide IVP 20 mg IVP once; over 1 to 2 minutes Route: IVP; Site: left tb4 forearm; 22:25 Follow up: Response: No adverse reaction; Nausea is decreased tb4 21:29 Drug: fentaNYL (PF) IVP 50 mcg IVP once Route: IVP; Site: left forearm; tb4 22:01 Follow up: Response: No adverse reaction; Pain is decreased; RASS: Alert and Calm (0) tb4 21:29 Drug: NS 0.9% IV 1000 ml IV at 1000 ml once; to be given as a bolus over 60 minutes tb4 Route: IV; Rate: 1000 ml; Site: left forearm; 22:25 Follow up: IV Status: Completed infusion tb4 22:49 Drug: NS 0.9% IV 1000 ml IV at 1000 ml once; to be given as a bolus over 60 minutes tb4 Route: IV; Rate: 1000 ml; Site: left forearm; 23:43 Follow up: Response: No adverse reaction; IV Status: Completed infusion tb4 Disposition Summary: 01/10/25 23:05 Discharge Ordered Notes: Location: Home shandra Problem: an acute exacerbation shandra Symptoms: have improved shandra Condition: Stable shandra Diagnosis - Nausea shandra - Type 1 diabetes mellitus with hyperglycemia shandra - Malignant neoplasm of stomach, unspecified shandra Followup: shandra - With: Private Physician - When: 2 - 3 days - Reason: Recheck today's complaints, Continuance of care, Re-evaluation by your physician Discharge Instructions: - Discharge Summary Sheet shandra - Hyperglycemia shandra - Nausea and Vomiting, Adult shandra - Nausea, Adult shandra Forms: - Medication Reconciliation Form shandra - Antibiotic Education shandra - Prescription Opioid Use shandra - Patient Portal Instructions [facility] - Leadership Thank You Letter [facility] Prescriptions: - ondansetron 4 mg Oral Tablet,disintegrating - take 1 tablet ORAL route every 6 hours as needed for nausea and vomiting; 20 shandra tablet; Refills: 0, Product Selection Permitted - Reglan 10 mg Oral Tablet - take 1 tablet ORAL route every 6 hours take 30 minutes before meals and at [facility] bedtime; 20 tablet; Refills: 0, Product Selection Permitted Signatures: Dispatcher [employer] EDMS Rashi Gimenez MD MD cha Villegas, Rebecca rv1 RISHABH MCLAUGHLIN, RN RN dd2 Sofiya Claudio RN RN tb4 Corrections: (The following items were deleted from the chart) 20:15 20:15 BASIC METABOLIC PANEL+C.LAB.BRZ ordered. EDMS EDMS 20:15 20:15 CBC+H.LAB.BRZ ordered. EDMS EDMS 20:15 20:15 HEPATIC FUNCTION+C.LAB.BRZ ordered. EDMS EDMS 20:15 20:15 MAGNESIUM+C.LAB.BRZ ordered. EDMS EDMS 20:15 20:15 PROBNP+C.LAB.BRZ ordered. EDMS EDMS 20:15 20:15 PROTIME (+INR)+COAG.LAB.BRZ ordered. EDMS EDMS 20:15 20:15 Troponin High Sensitivity+C.LAB.BRZ ordered. EDMS EDMS 20:15 20:15 Chest Single View+RAD.RAD.BRZ ordered. EDMS EDMS
--- NOTE | 2025-01-10 23:06 | ER ---
Nurse's Notes [facility] Name: Zeke Mackay Age: 60 yrs Sex: Male : 1965 Arrival Date: 01/10/2025 Time: 20:07 Bed 17 Private MD: Diagnosis: Nausea;Type 1 diabetes mellitus with hyperglycemia;Malignant neoplasm of stomach, unspecified Presentation: 01/10 20:17 Chief complaint: Patient states: NAUSEA AND VOMITING ALL DAY. PT REPORTS WAS HERE dd2 EARLIER TODAY. Coronavirus screen: At this time, the client does not indicate any symptoms associated with coronavirus-19. Ebola Screen: No symptoms or risks identified at this time. Initial Sepsis Screen: Does the patient meet any 2 criteria? No. Patient's initial sepsis screen is negative. Does the patient have a suspected source of infection? No. Patient's initial sepsis screen is negative. Risk Assessment: Do you want to hurt yourself or someone else? Patient reports no desire to harm self or others. Onset of symptoms was January 10, 2025. 20:17 Method Of Arrival: Ambulatory dd2 20:17 Acuity: RICKEY 4 dd2 Triage Assessment: 20:18 General: Appears in no apparent distress. uncomfortable, Behavior is calm, cooperative, dd2 appropriate for age. Pain: Denies pain. GI: Reports nausea, vomiting. 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 - Infectious Disease History:: Denies. - Social history:: Smoking status: Patient denies any tobacco usage or history of. Patient uses street drugs, marijuana. Screenin:[address] [facility] ED Fall Risk Assessment (Adult) History of falling in the last 3 months, tb4 including since admission No falls in past 3 months (0 pts) Confusion or Disorientation No (0 pts) Intoxicated or Sedated No (0 pts) Impaired Gait Yes (1 pt) Mobility Assist Device Used No (0 pt) Altered Elimination No (0 pt) Score/Fall Risk Level 0 - 2 = Low Risk Oriented to surroundings, Maintained a safe environment. Abuse screen: Denies threats or abuse. Denies injuries from another. Nutritional screening: No deficits noted. Nutritional screening: Patient states he has stomach cancer. Tuberculosis screening: No symptoms or risk factors identified. Tuberculosis screening: No symptoms or risk factors identified. Assessment: 21:30 Reassessment: See triage note. General: Appears uncomfortable, Behavior is calm, tb4 cooperative. Pain: Denies pain. Neuro: Level of Consciousness is awake, alert, obeys commands, Oriented to person, place, time, situation, Moves all extremities. Full function Gait is steady, Speech is normal, Facial symmetry appears normal. Cardiovascular: Reports nausea, Denies fatigue, vomiting. Respiratory: No deficits noted. Airway is patent Respiratory effort is even, unlabored, Respiratory pattern is regular, symmetrical. GI: Abdomen is round Bowel sounds present X 4 quads. : No signs and/or symptoms were reported regarding the genitourinary system. EENT: No signs and/or symptoms were reported regarding the EENT system. Derm: Skin is intact, is healthy with good turgor, Skin is dry, Skin is normal, Skin temperature is warm. Musculoskeletal: No signs and/or symptoms reported regarding the musculoskeletal system. Circulation, motion, and sensation intact. Range of motion: intact in all extremities. 21:30 Musculoskeletal: Amputation of right first toe, right second toe, right third toe, tb4 right fourth toe, right fifth toe, Right first toenail, Right fifth toenail, Right second toenail, Right third toenail and Right fourth toenail. 23:34 General: Appears in no apparent distress. Behavior is calm, cooperative. Pain: Denies tb4 pain. Neuro: Level of Consciousness is awake, alert, obeys commands, Oriented to person, place, time, situation, Waiter/Waitress Cabin Class are equal bilaterally Moves all extremities. Full function Gait is steady, toes amputated on right foot. Speech is normal. Respiratory: Airway is patent Respiratory effort is even, unlabored, Respiratory pattern is regular, symmetrical. GI: Patient currently denies nausea, pain, vomiting. Vital Signs: 20:17 BP 192 / 71; Pulse 75; Resp 16; Temp 98.3; Pulse Ox 99% on R/A; Pain 0/10; dd2 21:30 BP 187 / 97; Pulse 88; Resp 20; Temp 98(O); Pulse Ox 99% on R/A; Weight 77.11 kg; tb4 Height 6 ft. 2 in. ; Pain 0/10; 22:26 BP 170 / 76; Pulse 84; Resp 18; Pulse Ox 99% on R/A; Pain 0/10; tb4 23:31 BP 149 / 59; Pulse 72; Resp 17; Pulse Ox 99% on R/A; Pain 0/10; tb4 23:57 BP 151 / 61; Pulse 72; Resp 18; Pulse Ox 100% on R/A; Pain 0/10; tb4 21:30 Body Mass Index 21.83 (77.11 kg, 187.96 cm) tb4 20:17 Pain Scale: Adult dd2 21:30 Pain Scale: Adult tb4 22:26 Pain Scale: Adult tb4 23:31 Pain Scale: Adult tb4 23:57 Pain Scale: Adult tb4 ED Course: 20:09 Patient arrived in ED. im 20:13 Rashi Gimenez MD is Attending Physician. shandra 20:18 Triage completed. dd2 20:18 Arm band placed on right wrist. dd2 21:06 Basic Metabolic Panel Sent. oe 21:06 CBC with Diff Sent. oe 21:06 LFT's Sent. oe 21:06 Magnesium Sent. oe 21:06 NT PRO-BNP Sent. oe 21:06 PT-INR Sent. oe 21:06 Troponin HS Sent. oe 21:06 Inserted saline lock: 22 gauge in left forearm, using aseptic technique. Blood oe collected. Flushed with 10 mL NS. 21:11 XRAY Chest (1 view) In Process Unspecified. EDMS 21:35 EKG done, by ED staff. tb4 21:36 Patient has correct armband on for positive identification. Bed in low position. Call tb4 light in reach. Client placed on continuous cardiac and pulse oximetry monitoring. NIBP monitoring applied. physics teacher on. Door closed. Lights dimmed. Warm blanket given. Head of bed elevated. 23:58 No provider procedures requiring assistance completed. IV discontinued, intact, tb4 bleeding controlled, No redness/swelling at site. Pressure dressing applied. 23:59 Provided Education on: Follow up with primary care and take medications as prescribed. tb4 Administered Medications: 21:13 Drug: Pantoprazole IVP 40 mg IVP once Route: IVP; Site: left forearm; tb4 22:02 Follow up: Response: No adverse reaction; Nausea is decreased tb4 21:14 Drug: metoCLOPramide IVP 20 mg IVP once; over 1 to 2 minutes Route: IVP; Site: left tb4 forearm; 22:25 Follow up: Response: No adverse reaction; Nausea is decreased tb4 21:29 Drug: fentaNYL (PF) IVP 50 mcg IVP once Route: IVP; Site: left forearm; tb4 22:01 Follow up: Response: No adverse reaction; Pain is decreased; RASS: Alert and Calm (0) tb4 21:29 Drug: NS 0.9% IV 1000 ml IV at 1000 ml once; to be given as a bolus over 60 minutes tb4 Route: IV; Rate: 1000 ml; Site: left forearm; 22:25 Follow up: IV Status: Completed infusion tb4 22:49 Drug: NS 0.9% IV 1000 ml IV at 1000 ml once; to be given as a bolus over 60 minutes tb4 Route: IV; Rate: 1000 ml; Site: left forearm; 23:43 Follow up: Response: No adverse reaction; IV Status: Completed infusion tb4 Medication: 21:30 VIS not applicable for this client. tb4 Outcome: 23:05 Discharge ordered by . shandra 23:59 Discharged to home via wheelchair, tb4 23:59 Condition: stable 23:59 Discharge instructions given to patient, Instructed on discharge instructions, follow up and referral plans. Demonstrated understanding of instructions, follow-up care, medications, Prescriptions given X 2, 01/11 00:03 Patient left the ED. tb4 Signatures: Dispatcher [employer] Rashi Luciano MD MD cha Espinosa, Orlando oe Mendoza, Itzel im DAVIS, DIANA, RN RN dd2 Sofiya Claudio RN RN tb4
[2025-01-11 01:13] VITALS: TEMP 98
[2025-01-11 01:19] VITALS: BP 151/61; O2SAT 100
== END 2025-01-11 00:03 | disposition home or self-care (01) ==
LOC: ER 20:07
DX: E10.65 Type 1 diabetes mellitus with hyperglycemia (principal); C16.9 Malignant neoplasm of stomach, unspecified; Z95.1 Presence of aortocoronary bypass graft
CPT/HCPCS: 96361; 93005; 85025; 80048; 36415; 83735; 85610; 80076; 84484; 83880; 71045; 96375; 96374; 99285; J2765; J2470; J3010; J7030 ×2

== ENCOUNTER 2025-01-15 06:12 | Emergency (ER) | payer OTHER, BC ==
--- OUTSIDE RECORDS SUMMARY | 2025-01-15 06:20 | XMS REPORT | Clinical Summary ---
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 Name Role Phone Margoth Souza MD Primary Care Provider [phone] Mary Jane Cassidy MD Unavailable [phone] Barry He MD Unavailable Patience Hunt MD Unavailable Eagle Zhu DO Unavailable [phone] Marianela Hutchinson MD Unavailable [phone] Margoth Souza MD Unavailable Ceci Nicholson MD Unavailable [phone] Marianela Hutchinson MD Primary Care Provider [phone] Sigifredo Davenport MD Unavailable Abilio Ng-C Unavailable [phone] Shira Segovia MD Unavailable Ancelmo Love MD Unavailable [phone] Allergies Active Allergy Reactions Criticality Noted Date [...] Tylenol). 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); Endocrine/metabolic screening 12/18/2024 11:00 AM CDT Follow-Up Internal Medicine Center [address] [place] [address], 9th [place] [address] Shira Segovia MD Adenocarcinoma of stomach (Primary Dx); Hypertension; 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 mellitus; Paroxysmal atrial fibrillation 12/18/2024 Travel 12/15/2024 Orders Only [facility] [address] [place] [address], 7th [place] [address] Gillian Gomez PA-C Adenocarcinoma of stomach (Primary Dx) 12/01/2024 Orders Only [facility] [address] [place] [address], 7th [place] [address] Gillian Gomez PA-C Adenocarcinoma of stomach (Primary Dx) 11/13/2024 1:15 PM CDT - 11/13/2024 11:59 PM CDT Hospital Encounter Diagnostic Laboratory Center [address] [place] [address] Gillian Gomez PA-C Adenocarcinoma of stomach; Hyperkalemia; Hyponatremia Discharge Disposition: Home 11/13/2024 1:00 PM CDT Ancillary Procedure X-Ray Outpatient Center [facility], 7th [place] [address] Shira Segovia MD 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 mellitus 11/05/2024 Orders Only [facility] [address] [place] [address], 7th [place] [address] Radha Castellon, [facility] 11/04/2024 Orders Only [facility] [address] [place] [address], 7th [place] [address] Gillian Gomez PA-C 11/04/2024 Telephone [facility] [address] [place] [address], 7th [place] [address] Gabrielle Arias RN 11/02/2024 Orders Only [facility] [address] [place] [address], 7th [place] [address] Radha Castellon Werner 11/01/2024 6:00 PM CDT - 11/01/2024 11:59 PM CDT Hospital Encounter Ambulatory Treatment Center - Main Building [address] [place] [address], 2nd Floor, Elev[place] [address] Gillian Gomez PA-C Balason, Adda Rica F, RN Adenocarcinoma of stomach (Primary Dx) Discharge Disposition: Home 10/30/2024 2:00 PM CDT Infusion Ambulatory Treatment Center - Blue [address] [facility], 8th [place] [address] Gillian Gomez PA-C Baidon, Mario B RN Adenocarcinoma of stomach (Primary Dx); Iron deficiency anemia, not otherwise specified 10/30/2024 1:00 PM CDT Consult Internal Medicine Center [address] [place] [address], 9th [place] [address] Shira Segovia MD Hypertension (Primary Dx); Hypertensive [...] CDT Hospital Encounter Diagnostic Laboratory Center [address] [place] [address] Marianela Hutchinson MD Adenocarcinoma of stomach Discharge Disposition: Home 10/30/2024 Orders Only [facility] [address] [place] [address], 7th [place] [address] Marianela Hutchinson MD 10/30/2024 Travel 10/30/2024 Telephone Internal Medicine Center [address] [place] [address], 9th [place] [address] Shira Segovia MD 10/30/2024 Orders Only [facility] [address] [place] [address], 7th [place] [address] Gillian Gomez PA-C Iron deficiency anemia, not otherwise specified (Primary Dx); Adenocarcinoma of stomach 10/29/2024 Orders Only [facility] [address] [place] [address], 7th [place] [address] Gillian Gomez PA-C Adenocarcinoma of stomach (Primary Dx) 10/29/2024 Telephone Case Management [address] [place], [place] [id number] Yani Salamanca 10/28/2024 2:18 PM CDT - 10/29/2024 1:00 PM CDT Hospital Encounter Acute Cancer Care Center [address] [place] [address], 1st [place] [address] Otf Glaser MD Gandhi, Ayush, MD Sandoval, Marcelo A., MD Hypertensive crisis (Primary Dx); Hyperkalemia; Intractable nausea and vomiting; Renal cell carcinoma <Left side>; Type 2 diabetes mellitus with hyperglycemia; Atherosclerosis of coronary artery bypass graft without angina pectoris Discharge Disposition: Home 10/28/2024 10:54 AM CDT - 10/28/2024 2:17 PM CDT Hospital Encounter Diagnostic Laboratory Center [address] [place] [address] Marianela Hutchinson MD Adenocarcinoma of stomach Discharge Disposition: Home 10/28/2024 10:45 AM CDT Infusion Ambulatory Treatment [facility] - Blue [address] [place] [address], 8th [place] [address] Marianela Hutchinson MD Moreno Escobar, Cristian, ARTURO Adenocarcinoma of stomach 10/28/2024 9:45 AM CDT - 10/28/2024 10:53 AM CDT Hospital En[facility], 6th [place] [address] Marianela Hutchinson MD Discharge Disposition: Home 10/28/2024 Travel 10/28/2024 Orders Only Gastrointestinal Center [address] [place] [address] Main dg, 7th [place] [address] Max Ottoyeyolis Estrada [facility] 10/27/2024 Orders Only Gastrointestinal Center [address] [place] [address] Main [facility], 7th [place] [address] Marianela Hutchinson MD 10/27/2024 Orders Only [facility]astrointestinal Center [address] [place] [address] Main [facility], 7th [place] [address] Gillian Gomez PA-C Adenocarcinoma of stomach (Primary Dx) 10/27/2024 Telephone Gastrointestinal Center [address] [facility] Main dg, 7th [place] [address] Gabrielle Arias RN 10/26/2024 12:20 PM CDT Follow-Up Gastrointestinal Center [address] [place] [address] Main [facility], 7th [place] [address] Marianela Hutchinson MD Adenocarcinoma of stomach (Primary Dx) 10/26/2024 Orders Only Colorectal Center - Medical Oncology [facility] Main dg, 7th [place] [address] David Alejandre MD 10/26/2024 Travel 10/25/2024 8:03 AM CDT - 10/25/2024 5:51 PM CDT Emergency Acute Cancer Care Center [facility] Main dg, 1st Floor near [place] [address] Mohan Torres MD Nausea (Primary Dx); Hypertension; Gastro-esophageal reflux disease without esophagitis; Adenocarcinoma of stomach; Renal mass; Paroxysmal atrial fibrillation Discharge Disposition: Home 10/25/2024 7:00 AM CDT - 10/25/2024 7:19 AM CDT Hospital Encounter Diagnostic Laboratory Center [address] [place] [address] Marianela Hutchinson MD Adenocarcinoma of stomach Discharge Disposition: Home 10/07/2024 4:30 PM CDT Infusion Ambulatory [facility] [place] - Purple [address] [facility], 8th Floor Elevator [address] [place] [phone] Marianela Hutchinson MD Gumban, Connie Y, RN Adenocarcinoma of stomach (Primary Dx) 10/07/2024 Travel 10/05/2024 1:45 PM CDT Infusion [facility] [place] - [address], 8th Floor [facility] [place] [address] Marianela Hutchinson MD Olipas, Donnamarie G RN Adenocarcinoma of stomach (Primary Dx); Iron deficiency anemia, not otherwise specified 10/05/2024 10:48 AM CDT - 10/05/2024 11:59 PM CDT Hospital Encounter Diagnostic Laboratory Center [address] [place] [address] Marianela Hutchinson MD Adenocarcinoma of stomach Discharge Disposition: Home 10/05/2024 Travel 10/02/2024 [facility] Only Gastrointestinal Center [address] [place] [address], 7th Floor Elevator [place] [phone] Gillian Gomez PA-C 09/25/2024 Telephone [facility] [address] [place], [place] [phone] Jane Sanchez, er tech Call 09/23/2024 8:56 PM CDT - 09/23/2024 11:34 PM CDT Emergency Acute Cancer Care Center [address] [place] [address], 1st Floor near The [place] [phone] Otf Glaser MD Encounter for adjustment and management of vascular access device (Primary Dx); Hypertension Discharge Disposition: Home 09/23/2024 6:50 PM CDT Infusion Ambulatory [facility] [place] - Mobile [address] [place] [address], [address] [place] [address] Marianela Hutchinson MD Rocafort, Roy G, RN Adenocarcinoma of stomach (Primary Dx) 09/21/2024 4:30 PM CDT Infusion Ambulatory Treatment [address], [address] [place] [address] Marianela Hutchinson MD Joseph, Divya, RN Adenocarcinoma of stomach (Primary Dx); Iron deficiency anemia, not otherwise specified 09/21/2024 2:20 PM CDT Follow-Up [facility]astrointestinal Center [address] [place] [address] Marianela Hutchinson MD Adenocarcinoma of stomach 09/21/2024 12:48 PM CDT - 09/21/2024 11:59 PM CDT Hospital Encounter Diagnostic Laboratory Center [address] [place] [address] Marianela Hutchinson MD Adenocarcinoma of stomach Discharge Disposition: Home 09/21/2024 Orders Only [facility] [address] [place] [address], [address] [place] [address] Marianela Hutchinson MD Adenocarcinoma of stomach (Primary Dx) 09/21/2024 Orders Only Gastrointestinal Center [address] [place] [address] Radha Castellon [facility] Adenocarcinoma of stomach (Primary Dx); Diarrhea 09/21/2024 Travel 09/21/2024 Orders Only Ambulatory Treatment [address], [address] [place] [address] Marianela Hutchinson MD Adenocarcinoma of stomach (Primary Dx) 09/09/2024 6:30 PM CDT Infusion [facility][1] Treatment [address], [address] [place] [address] Marianela Hutchinson MD Balason, Adda Rica F, RN Adenocarcinoma of stomach (Primary Dx) 09/09/2024 Travel 09/07/2024 4:30 PM CDT Infusion Ambulatory Treatment Center - Blue [address] [facility], 8th [place] [address] Marianela Hutchinson MD Castillo, Emmanuel, RN Adenocarcinoma of stomach (Primary Dx); Iron deficiency anemia, not otherwise specified 09/07/2024 1:00 PM CDT Follow-Up [facility] [address] [place] [address], 7th [place] [address] Marianela Hutchinson MD Adenocarcinoma of stomach (Primary Dx) 09/07/2024 10:41 AM CDT - 09/07/2024 11:59 PM CDT Hospital Encounter Diagnostic Laboratory Center [address] [place], [place] [phone] Marianela Hutchinson MD Adenocarcinoma of stomach Discharge Disposition: Home 09/07/2024 Orders Only [facility] [address] [place] [address], 7th [place] [address] Marianela Hutchinson MD Adenocarcinoma of stomach (Primary Dx) 09/07/2024 Orders Only [facility] Center [address] [place] [address], 7th [place] [address] Radha Castellon, [facility] Adenocarcinoma of stomach (Primary Dx); Iron deficiency anemia, not otherwise specified 09/07/2024 Travel 08/26/2024 7:41 PM CDT - 08/26/2024 11:59 PM CDT Hospital Encounter Ambulatory Treatment [place] - [address], 2nd Floor, Elev[place] [address] Marianela Hutchinson MD Le, Lam, RN Adenocarcinoma of stomach (Primary Dx) Discharge Disposition: Home 08/24/2024 1:40 PM CDT Follow-Up [facility] [address] [place] [address], 7th [place] [address] Marianela Hutchinson MD Adenocarcinoma of stomach 08/24/2024 12:42 PM CDT - 08/24/2024 11:59 PM CDT Hospital Encounter Ambulatory Treatment Center - Main Building [address] [place] [address] Main [facility], 2nd Floor, Elev[place] [address] Gillian Gomez PA-C Harrison, Kishanda S, RN Adenocarcinoma of stomach (Primary Dx) Discharge Disposition: Home 08/24/2024 11:16 AM CDT - 08/24/2024 12:41 PM T Hospital Encounter Diagnostic Laboratory Center [address] [place] [address] Gillian Gomez PA-C Adenocarcinoma of stomach Discharge Disposition: Home 08/24/2024 Orders Only [facility] [address] [place] [address] Main [facility], 7th [place] [address] Marianela Hutchinson MD Adenocarcinoma of stomach (Primary Dx) 08/24/2024 Telephone [facility] [address] [place] [address] Main [facility], 7th [place] [address] Mony Saavedra RN 08/24/2024 Orders Only [facility] [address] [place] [address], 7th [place] [address] Radha Castellon Werner Adenocarcinoma of stomach (Primary Dx) 08/24/2024 Travel 08/24/2024 Orders Only Ambulatory Treatment Center - Main Building [address] [place] [address], 2nd Floor, Elev[place] [address] Marianela Hutchinson MD Adenocarcinoma of stomach (Primary Dx) 08/21/2024 Telephone [facility] [address] [place] [address], 7th [place] [address] Milagros Rogers RN 08/17/2024 Orders Only [facility] [address] [place] [address], 7th [place] [address] Gillian Gomez PA-C Adenocarcinoma of stomach (Primary Dx) 08/06/2024 Orders Only [facility] [address] [place] [address], 7th [place] [address] Radha Castellon RPH 07/22/2024 Orders Only Ambulatory Treatment Center - Blue [address] [facility], 8th [place] [address] Marianela Hutchinson MD Adenocarcinoma of stomach (Primary Dx) 07/21/2024 Telephone Ambulatory Treatment Center - Mobile [address] [facility], 8th [place] [address] Rosanna Álvarez, RN Chemotherapy Teaching 07/16/2024 2:40 PM SEGMENT BLOCK LAYER Follow-Up [facility] [address] [place] [address], 7th [place] [address] Marianela Hutchinson MD Adenocarcinoma of stomach (Primary Dx) 07/16/2024 Orders Only [facility] [address] [place] [address], 7th [place] [address] Marianela Hutchinson MD Adenocarcinoma of stomach (Primary Dx) 07/16/2024 Orders Only [facility] [address] [place] [address], 7th [place] [address] Radha Castellon, [facility] Adenocarcinoma of stomach (Primary Dx) 07/16/2024 Travel 07/15/2024 10:08 AM SEGMENT BLOCK LAYER - 07/15/2024 11:59 PM SEGMENT BLOCK LAYER Hospital Encounter CT Imaging and Diagnostic Imaging [facility], 3rd [place] [address] Mary Kay Santamaria APRN Adenocarcinoma of stomach Discharge Disposition: Home 07/15/2024 9:49 AM SEGMENT BLOCK LAYER - 07/15/2024 10:07 AM SEGMENT BLOCK LAYER Hospital Encounter Diagnostic Laboratory Center [address] [place] [address] [place] [address] Mary Kay Santamaria APRN Adenocarcinoma of stomach Discharge Disposition: Home 07/07/2024 Orders Only [facility] [address] [place] [address], 7th [place] [address] Gillian Gomez PA-C Adenocarcinoma of stomach (Primary Dx) 07/06/2024 Telephone [facility] Center - Surgical Oncology [address] Main Bldg, 7th [place] [address] Mary Kay Santamaria, GEAR GRINDER 07/06/2024 Orders Only [facility]astrointestinal Center - Surgical Oncology [facility] Main Bldg, 7th [place] [address] Mary Kay Santamaria, GEAR GRINDER 07/06/2024 Orders Only [facility] [address] [place] [address] Main dg, 7th [place] [address] Gillian Gomez PA-C Adenocarcinoma of stomach (Primary Dx) 07/06/2024 Multidisciplinary Visit [facility] [address] [place] [address] Main [facility], 7th Floor Elevator A [place] [phone] Gillian Gomez PA-C 07/06/2024 Orders Only [facility] Center [address] [place] [address] Main [facility], 7th Floor Elevator A [place] [phone] Donnell Van Adenocarcinoma of stomach (Primary Dx) 07/02/2024 11:00 AM SEGMENT BLOCK LAYER Nutrition Clinical Nutrition For your Nutrition appointment location directions please call: Marianela Hutchinson MD Munder, Kathryn, SCOTT Left without seen 07/02/2024 10:30 AM SEGMENT BLOCK LAYER Follow-Up [facility] - Surgical Oncology [address] [place] [address] Main [facility], 7th [place] [address] John Fong MD Adenocarcinoma of stomach 07/02/2024 Documentation [facility] - Surgical Oncology [address] [place] [address] Main Bldg, 7th [place] [address] John Fong MD 06/30/2024 3:33 PM SEGMENT BLOCK LAYER Anesthesia Event Perioperative Evaluation and Management Center [address] [place] [address] Main [facility], 6th Floor Elevator A [place] [phone] Lien nAtonio, RN 06/30/2024 12:25 PM SEGMENT BLOCK LAYER Anesthesia Event Endoscopy Center [address] [place] [address] Main [facility], 5th Floor Elevator C [place] [phone] Susana Kelly MD 06/30/2024 12:00 PM SEGMENT BLOCK LAYER - 06/30/2024 12:45 PM SEGMENT BLOCK LAYER Surgery Endoscopy Center [address] [place] [address] Main [facility], 5th [place] [address] Brandon Alcala MD DIAGNOSTIC UPPER GASTROINTESTINAL ENDOSCOPY 06/30/2024 10:15 AM SEGMENT BLOCK LAYER - 06/30/2024 2:24 PM SEGMENT BLOCK LAYER Hospital Encounter Endoscopy Center [address] [place] [address] Main [facility], 5th [place] [address] Brandon Alcala MD Adenocarcinoma of stomach Discharge Disposition: Home 06/30/2024 Travel 06/29/2024 9:00 AM SEGMENT BLOCK LAYER Consult Perioperative Evaluation and Management [address] [place] [address], 6th [place] [address] Mary Kay Santamaria APRN Vu, Khanh D, MD Encounter for preprocedural cardiovascular examination (Primary Dx); Coronary arteriosclerosis, not otherwise specified; Cardiomyopathy, not otherwise specified; Hypertension; 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; Type 2 diabetes mellitus with hyperglycemia; Dyslipidemia; Hyponatremia; Hyperkalemia; Adenocarcinoma of stomach; Paroxysmal atrial fibrillation; Hyperlipidemia, not otherwise specified 06/29/2024 8:00 AM SEGMENT BLOCK LAYER POEM Appointments Perioperative Evaluation and Management Center [address] [place] [address], 6th [place] [address] Marianela Hutchinson MD 06/29/2024 7:30 AM SEGMENT BLOCK LAYER - 06/29/2024 11:59 PM SEGMENT BLOCK LAYER Hospital Encounter [facility] - Cardiology [address] [place] [address] Main [facility], 2nd [place] [address] Mary Kay Santamaria APRN Adenocarcinoma of stomach Discharge Disposition: Home 06/29/2024 Travel 06/23/2024 Documentation [facility] [address] [place] [address], 7th [place] [address] Mony Saavedra RN 06/22/2024 12:20 PM SEGMENT BLOCK LAYER Follow-Up [facility] [address] [place] [address], 7th [place] [address] Marianela Hutchinson MD Adenocarcinoma, NOS of stomach, NOS 06/22/2024 Orders Only [facility] [address] [place] [address], 7th [place] [address] Radha Castellon, [facility] 06/22/2024 Travel 06/20/2024 10:45 AM SEGMENT BLOCK LAYER - 06/20/2024 11:59 PM SEGMENT BLOCK LAYER Hospital Encounter Diagnostic Imaging Center [address] [place] [address], 3rd [place] [address] Adenocarcinoma, NOS of stomach, NOS; Malignant neoplasm of overlapping sites of esophagus Discharge Disposition: Home 06/20/2024 10:08 AM SEGMENT BLOCK LAYER - 06/20/2024 10:44 AM SEGMENT BLOCK LAYER Hospital Encounter Diagnostic Laboratory Center [address] [place] [address] Gillian Gomez PA-C Adenocarcinoma, NOS of stomach, NOS Discharge Disposition: Home 06/16/2024 [place] [facility] - Surgical Oncology [address] [place] [address], 7th [place] [address] Mary Kay Santamaria, GEAR GRINDER 06/15/2024 1:30 PM SEGMENT BLOCK LAYER Infusion Ambulatory Treatment Center - Blue [address] [facility], 8th [place] [address] Marianela Hutchinson MD [facility] [place] Tyson RN Adenocarcinoma of stomach (Primary Dx); Iron deficiency anemia, not otherwise specified 06/15/2024 12:40 PM SEGMENT BLOCK LAYER Follow-Up [facility] [address] [place] [address], 7th [place] [address] Marianela Hutchinson MD Adenocarcinoma, NOS of stomach, NOS; Malignant neoplasm of overlapping sites of esophagus 06/15/2024 10:24 AM SEGMENT BLOCK LAYER - 06/15/2024 11:59 PM SEGMENT BLOCK LAYER Hospital Encounter Diagnostic Laboratory Center [address] [place] [address] Marianela Hutchinson MD Adenocarcinoma of stomach; Adenocarcinoma, NOS of stomach, NOS Discharge Disposition: Home 06/15/2024 Orders Only [facility] [address] [facility] Main [address]ldg, 7th [place] [address] Radha Castellon, [facility] Adenocarcinoma of stomach (Primary Dx) 06/15/2024 Orders Only [facility] [address] Main Bldg, 7th [place] [address] Gillian Gomez PA-C 06/15/2024 Travel 06/15/2024 Telephone [facility] - Gastroenterology , Hepatology & Nutrition [address] Main Bldg, 7th [place] [address] Arnaldo Araujo PA-C 06/15/2024 Multidisciplinary Visit [facility] [address] Main Bldg, 7th [place] [address] Lakeshia Pablo PA 06/15/2024 Orders Only [facility]astrointestinal Center [facility] Main Bldg, 7th [place] [address] Marianela Hutchinson MD Adenocarcinoma of stomach (Primary Dx) 06/12/2024 Prep for Surgery [facility] - Gastroenterology , Hepatology & Nutrition [address] Main Bldg, 7th [place] [address] Arnaldo Araujo PA-C Adenocarcinoma of stomach (Primary Dx) 06/12/2024 Telephone [facility] [address] Main [address]ldg, 7th [place] [address] Mary Kay Santamaria APRN 06/12/2024 Orders Only [facility] [address] Main Bldg, 7th [place] [address] Mary Kay Santamaria APRN Adenocarcinoma of stomach (Primary Dx) 06/10/2024 Orders Only [facility] [address] Main Bldg, 7th [place] [address] Mary Kay Santamaria APRN Adenocarcinoma of stomach (Primary Dx) 06/05/2024 Telephone [facility]ology , Hepatology & Nutrition [address] [place] [address], 7th [place] [address] Arnaldo Araujo PA-C 06/03/2024 5:30 PM SEGMENT BLOCK LAYER [facility] - Blue [address] [facility], 8th [place] [address] Marianela Hutchinson MD Lewandowski, Teresa M, RN Adenocarcinoma of stomach (Primary Dx) 06/03/2024 Travel 06/02/2024 Telephone [facility] [address] [place] [address], 7th [place] [address] Mony Saavedra RN 06/01/2024 1:00 PM SEGMENT BLOCK LAYER Infusion [facility] [address] [place] [address] [facility], Floor 6 [place] [address] Marianela Hutchinson MD Shaik, Anna Marie B, RN Adenocarcinoma of stomach (Primary Dx); Iron deficiency anemia, not otherwise specified 06/01/2024 10:53 AM SEGMENT BLOCK LAYER - 06/01/2024 11:59 PM SEGMENT BLOCK LAYER Hospital Encounter [facility] [address] [place] [address] Marianela Hutchinson MD Adenocarcinoma of stomach; Iron deficiency anemia, not otherwise specified Discharge Disposition: Home 06/01/2024 Orders Only [facility] [address] [place] [address], 7th [place] [address] Marianela Hutchinson MD 06/01/2024 Orders Only [facility] [address] [place] [address], 7th [place] [address] Radha Castellon [facility] Adenocarcinoma of stomach (Primary Dx); Iron deficiency anemia, not otherwise specified 06/01/2024 Travel 06/01/2024 Orders Only [facility] [address] [place] [address] [facility], Floor 6 [place] [address] Marianela Hutchinson MD Adenocarcinoma of stomach (Primary Dx) 05/26/2024 Telephone [facility]ology , Hepatology & Nutrition [address] [place] [address] Main [facility], 7th [place] [address] Arnaldo Araujo PA-C 05/22/2024 Telephone [facility] , Hepatology & Nutrition [address] [place] [address], 7th [place] [address] Arnaldo Araujo PA-C 05/22/2024 Orders Only [facility]ology , Hepatology & Nutrition [address] [place] [address], 7th [place] [address] Arnaldo Araujo PA-C Candidal esophagitis (Primary Dx) 05/20/2024 4:30 PM SEGMENT BLOCK LAYER - 05/20/2024 11:59 PM SEGMENT BLOCK LAYER Hospital Encounter Ambulatory Treatment Center - [address], 2nd Floor, [place] [address] Marianela Hutchinson MD Lewandowski, Teresa M, RN Adenocarcinoma of stomach Discharge Disposition: Home 05/19/2024 12:44 PM SEGMENT BLOCK LAYER Anesthesia Event [facility] Center [address] [place] [address], 5th [place] [address] Maurice Ferrera MD [facility], [facility] 05/19/2024 12:00 PM SEGMENT BLOCK LAYER - 05/19/2024 1:10 PM SEGMENT BLOCK LAYER Surgery [facility]oscopy Center [address] [place] [address], 5th [place] [address] Brandon Alcala MD UPPER GASTROINTESTINAL ENDOSCOPY OF ESOPHAGUS, STOMACH, OR DUODENUM ANDJ ADJACENT STRUCTURES, WITH ENDOSCOPIC ULTRASOUND EXAMINATION 05/19/2024 11:17 AM SEGMENT BLOCK LAYER - 05/19/2024 2:49 PM SEGMENT BLOCK LAYER Hospital Encounter Endoscopy Center [address] [place] [address], 5th [place] [address] Brandon Alcala MD Adenocarcinoma of stomach Discharge Disposition: Home 05/19/2024 Travel 05/18/2024 1:00 PM SEGMENT BLOCK LAYER Infusion [facility] [address] [facility], Floor 6 [place] [address] Marianela Hutchinson MD Rupp, Alexa B, RN Adenocarcinoma of stomach (Primary Dx) 05/18/2024 12:20 PM SEGMENT BLOCK LAYER Follow-Up [facility] [address] [place] [address], 7th [place] [address] Marianela Hutchinson MD Adenocarcinoma, NOS of stomach, NOS 05/18/2024 11:00 AM SEGMENT BLOCK LAYER POEM Appointments [facility] [address] [place] [address], 6th [place] [address] Marianela Hutchinson MD 05/18/2024 10:32 AM SEGMENT BLOCK LAYER - 05/18/2024 11:59 PM SEGMENT BLOCK LAYER Hospital Encounter [facility] [address] [place] [address] Gillian Gomez PA-C Adenocarcinoma, NOS of stomach, NOS Discharge Disposition: Home 05/18/2024 Orders Only [facility] [address] [place] [address], 7th [place] [address] Marianela Hutchinson MD Adenocarcinoma of stomach (Primary Dx) 05/18/2024 Orders Only [facility] [address] [place] [address], 7th [place] [address] Radha Castellon Werner Adenocarcinoma of stomach (Primary Dx); Iron deficiency anemia, not otherwise specified 05/18/2024 Travel 05/15/2024 11:59 PM SEGMENT BLOCK LAYER Anesthesia Event [facility] [address] [place] [address], 6th [place] [address] Eri Lynne, ARTURO 05/06/2024 5:30 PM SEGMENT BLOCK LAYER Infusion [facility] [place] - Blue [address] [facility], 8th [place] [address] Marianela Hutchinson MD Pagara, Leni S, RN Adenocarcinoma of stomach 05/04/2024 12:36 PM SEGMENT BLOCK LAYER - 05/04/2024 11:59 PM SEGMENT BLOCK LAYER Hospital Encounter Ambulatory Treatment Center - Main [address], 2nd Floor, Elev[place] [address] Gillian Gomez PA-C Jo, Edifia Sungsoon, RN Adenocarcinoma of stomach (Primary Dx) Discharge Disposition: Home 05/04/2024 12:20 PM SEGMENT BLOCK LAYER Follow[facility]Up [facility] [address] [place] [address], 7th [place] [address] Marianela Hutchinson MD Adenocarcinoma, NOS of stomach, NOS 05/04/2024 11:10 AM SEGMENT BLOCK LAYER - 05/04/2024 12:35 PM SEGMENT BLOCK LAYER Hospital Encounter Diagnostic [facility] Center [address] [place] [address] Gillian Gomez PA-C Adenocarcinoma, NOS of stomach, NOS; Adenocarcinoma of stomach Discharge Disposition: Home 05/04/2024 Orders Only [facility] [address] [place] [address], 7th [place] [address] Marianela Hutchinson MD Adenocarcinoma of stomach (Primary Dx) 05/04/2024 Orders Only [facility] [address] [place] [address], 7th [place] [address] Radha Castellon [facility] Adenocarcinoma of stomach (Primary Dx) 05/04/2024 Travel 04/30/2024 Orders Only [facility] [address] [place] [address], 7th [place] [address] Mary Kay Santamaria APRN Adenocarcinoma of stomach (Primary Dx); Paroxysmal atrial fibrillation; Hyperlipidemia, not otherwise specified; Type 2 diabetes mellitus with hyperglycemia 04/27/2024 8:05 PM SEGMENT BLOCK LAYER Ancillary Procedure [facility] [address] [place] [address] Cancer 04/27/2024 8:00 PM SEGMENT BLOCK LAYER Ancillary Procedure [facility] [address] [place] [address] Cancer 04/27/2024 Orders Only [facility] [address] [place] [address], 7th [place] [address] Donnell Van Adenocarcinoma of stomach (Primary Dx) 04/24/2024 Documentation Vascular Access and Procedures Center [address] [facility], 8th [place] [address] Mary Kay Santamaria, FRANK 04/24/2024 Orders Only [facility] [address] [place] [address], [address] [place] [address] [place] [address] Mary Kay Santamaria, GEAR GRINDER Adenocarcinoma, NOS of stomach, NOS (Primary Dx) 04/24/2024 Telephone [facility] [address] [place] [address], [address] [place] [address] Mary Kay Santamaria, FRANK 04/22/2024 Lab Requisition [facility] Sincere Moralez MD Jain, Shilpa, MD 04/21/2024 Orders Only [facility] [address] [place] [address], [address] [place] [address] Gillian Gomez PA-C Adenocarcinoma, NOS of stomach, NOS (Primary Dx); Adenocarcinoma of stomach 04/16/2024 Telephone POPEYE POTTERKYBebeto PHYSICIAN [address] [place] [address] 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, er tech Call 04/15/2024 10:09 AM SEGMENT BLOCK LAYER Anesthesia Event MAIN OR [address] [place] [address] Meenakshi Crowe MD Miller, Wendy, CRNA 04/15/2024 10:05 AM SEGMENT BLOCK LAYER - 04/15/2024 1:25 PM SEGMENT BLOCK LAYER Surgery MAIN OR [address] [place], [place] [id number] John Fong MD ROBOTIC ASSISTED SURGICAL LAPAROSCOPY 04/15/2024 7:32 AM SEGMENT BLOCK LAYER - 04/15/2024 11:50 PM SEGMENT BLOCK LAYER Hospital Encounter MAIN OR [address] [place] [address] John Fong MD Adenocarcinoma of stomach (Primary Dx) Discharge Disposition: Home 04/15/2024 Travel 04/14/2024 2:30 PM SEGMENT BLOCK LAYER Consult [facility] [address] [place] [address] Main [facility], 7th [place] [address] Gillian Gomez PA-C Badgwell, Brian, MD Adenocarcinoma, NOS of stomach, NOS (Primary Dx); Nausea 04/14/2024 Documentation [facility] [address] [place] [address] Main [facility], 7th [place] [address] John Fong MD 04/13/2024 3:00 PM SEGMENT BLOCK LAYER Consult [facility] [address] [place] [address], [facility] [place] [address] Marianela Hutchinson MD Mass of stomach (Primary Dx) 04/13/2024 2:02 PM SEGMENT BLOCK LAYER Anesthesia Event [facility] [address] [place] [address], 6th [place] [address] Curtis Moctezuma PA 04/12/2024 8:22 AM SEGMENT BLOCK LAYER - 04/12/2024 3:42 PM SEGMENT BLOCK LAYER Hospital Encounter MAIN P06B [address] [place] [address] Nghia Zhu MD Elsayem, Ahmed, MD Nausea and vomiting (Primary Dx); Gastric cancer; Pancreatitis Discharge Disposition: Left Against Medical Advice 04/12/2024 Travel 04/09/2024 8:25 PM SEGMENT BLOCK LAYER Ancillary Procedure [facility] [address] [place] [address] Margoth Souza MD Cancer 04/09/2024 8:20 PM SEGMENT BLOCK LAYER Ancillary Procedure [facility] [address] [place] [address] Margoth Souza MD Cancer 04/09/2024 8:15 PM SEGMENT BLOCK LAYER Ancillary Procedure [facility] [address] [place] [address] Margoth Souza MD Cancer 04/09/2024 8:10 PM SEGMENT BLOCK LAYER Ancillary Procedure [facility] [address] [place], [place] [id number] Margoth Souza MD Cancer 04/09/2024 8:05 PM SEGMENT BLOCK LAYER Ancillary Procedure [facility] [address] [place] [address] Margoth Souza MD Cancer 04/09/2024 8:00 PM SEGMENT BLOCK LAYER Ancillary Procedure [facility] [address] [place] [address] Margoth Souza MD Cancer 04/09/2024 10:48 AM SEGMENT BLOCK LAYER - 04/09/2024 11:59 PM SEGMENT BLOCK LAYER Hospital Encounter Diagnostic Laboratory Center [address] [place] [address] Ceci Nicholson MD Encounter for other preprocedural examination; Atherosclerosis of coronary artery bypass graft without angina pectoris, not otherwise specified; 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 Discharge Disposition: Home 04/09/2024 10:00 AM SEGMENT BLOCK LAYER POEM Appointments [facility] [address] [place] [address], 6th [place] [address] Margoth Souza MD 04/09/2024 9:56 AM SEGMENT BLOCK LAYER - 04/09/2024 10:47 AM SEGMENT BLOCK LAYER Hospital Encounter [facility] [address] [place] [address], 2nd [place] [address] Ceci Nicholson MD Adenocarcinoma of stomach; Hyperlipidemia, not otherwise specified; Encounter for other preprocedural examination; Atherosclerosis of coronary artery bypass graft without angina pectoris, not otherwise specified Discharge Disposition: Home 04/09/2024 9:00 AM SEGMENT BLOCK LAYER Consult Perioperative Evaluation and Management [address] [place] [address], 6th [place] [address] Mary Kay Santamaria APRN Misoi, Mercy W, MD Encounter for other preprocedural examination (Primary Dx); Adenocarcinoma of stomach; Paroxysmal atrial fibrillation; Hypertension; 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; Hyperlipidemia, not otherwise specified; Current use of 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; Atherosclerosis of coronary artery bypass graft without angina pectoris, not otherwise specified 04/09/2024 Travel 04/08/2024 Prep for Surgery [facility] [address] [place] [address], [address] [place] [address] [place] [address] Mary Kay Santamaria APRN Adenocarcinoma of stomach (Primary Dx); Mass of stomach 04/08/2024 Orders Only [facility] [address] [place] [address], [address] [place] [address] [place] [address] Mary Kay Santamaria APRN Adenocarcinoma of stomach (Primary Dx); Paroxysmal atrial fibrillation; Hypertension; 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; Hyperlipidemia, not otherwise specified; Current use of 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 04/08/2024 Orders Only [facility] [address] [place] [address], [address] [place] [address] Gillian Gomez PA-C Adenocarcinoma, NOS of stomach, NOS (Primary Dx) 04/06/2024 [facility] [address] [place] [address], [address] [place] [address] [place] [address] Roberto Poole PA 04/06/2024 Orders Only [facility] [address] [place] [address], [facility] [place] [address] Roberto Poole PA Mass of stomach (Primary Dx) 04/06/2024 Orders Only [facility] [address] [place] [address], [facility] [place] [address] Roberto Poole PA Mass of stomach (Primary Dx) 04/06/2024 Telephone [facility] [address] [place] [address], [facility] [place] [address] Anais Meng RN 02/11/2024 Travel 02/10/2024 3:30 PM CDT Telemedicine [facility] [address] [place] [address], [facility] [place] [address] Margoth Souza MD Renal mass (Primary Dx) after 01/16/2024 Immunizations Immunization Administration Dates Next Due Influenza, [...] surgeries CERVICAL SPINE SURGERY C3-6 fusion, x2 AR LAPAROSCOPY SURG PARTIAL NEPHRECTOMY 01/02/2024 Abdomen/Left Procedure: ROBOTIC ASSISTED PARTIAL NEPHRECTOMY; Surgeon: Margoth Souza MD; Location: MAIN OR; Service: UROLOGY AR ULTRASONIC GUIDANCE INTRAOPERATIVE 01/02/2024 Left Procedure: INTROPERATIVE ULTRASOUND - PERFORMED BY SURGEON; Surgeon: Margoth Souza MD; Location: MAIN OR; Service: UROLOGY CORONARY ARTERY BYPASS GRAFT 01/07/2024 AR LAPS ABD PRTM&OMENTUM DX W/WO SPEC BR/WA SPX 04/15/2024 Abdomen/N/A Procedure: ROBOTIC ASSISTED SURGICAL LAPAROSCOPY; Surgeon: John Fong MD; Location: MAIN OR; Service: SURG ONC - GASTRIC/HIPEC Medical devices from this surgery are in the Medical Devices section. AR FLUORO CENTRAL VENOUS ACC ESS DEV PLACEMENT 04/15/2024 Neck/N/A Procedure: FLUORO GUIDANCE FOR CENTRAL VENOUS ACCESS DEVICE PLACEMENT, REPLACEMENT, OR REMOVAL; Surgeon: John Fong MD; Location: MAIN OR; Service: SURG ONC - GASTRIC/HIPEC Medical devices from this surgery are in the Medical Devices section. AR US VASC ACCESS SITS VSL P ATENCY NDL ENTRY 04/15/2024 N/A Procedure: US GUIDANCE WITH EVAL OF POTENTIAL ACCESS SITES, REALTIME US VISUALIZATION OF VASC NEEDLE ENTRY; Surgeon: John Fong MD; Location: MAIN OR; Service: SURG ONC - GASTRIC/HIPEC Medical devices from this surgery are in the Medical Devices section. AR INSJ TUNNELED CTR VAD W/S UBQ PORT AGE 5 YR/> 04/15/2024 Neck/N/A Procedure: PORT-A-CATH PLACEMENT; Surgeon: John Fong MD; Location: MAIN OR; Service: SURG ONC - GASTRIC/HIPEC Medical devices from this surgery are in the Medical Devices section. AR ESOPHAGOGASTRODUODENOSCOP Y US SCOPE W/ADJ STRXRS 05/19/2024 Esophagus/N/A Procedure: UPPER GASTROINTESTINAL ENDOSCOPY OF ESOPHAGUS, STOMACH, OR DUODENUM ANDJ ADJACENT STRUCTURES, WITH ENDOSCOPIC ULTRASOUND EXAMINATION; Surgeon: Brandon Alcala MD; Location: MAIN ENDOSCOPY; Service: GASTROENTEROLOGY AR ESOPHAGOGASTRODUODENOSCOP Y TRANSORAL DIAGNOSTIC 06/30/2024 Esophagus/N/A Procedure: [...] locally 12/03/2023-12/06/2023 of note, pt was on [facility] Peripheral vascular disease 2023 Left LE [...] on file Legal Sex Male 11:38 AM SEGMENT BLOCK LAYER Gender Identity Not on file Sexual Orientation Not on file Occupation Industry Job Start Date Job End Date retired from [employer] Not on file N ot on file Not on file Travel History Travel Start Travel End [place] 04/12/2024 04/12/2024 Obstetrics History Last Filed Vital [...] 8:00 AM CDT Appointment [facility] [address] [place] [address] Marianela Hutchinson MD [address] [place] [phone] [email or web address] 01/22/2025 8:[address] Imaging and Diagnostic Imaging [address] [place] [address], 3rd [place] [address] Gillian Gomez PA-C [address] [place] [phone] [email or web address] 01/25/2025 12:20 PM CDT Follow-Up [facility] [address] [place] [address], 7th [place] [address] Marianela Hutchinson MD [address] [place] [phone] [email or web address] 02/05/2025 10:45 AM CDT Lab [facility] [address] [place] [address] 7th [place] [address] Margoth Souza MD [facility] [place] [address] [email or web address] 02/05/2025 11:15 AM CDT Ancillary Procedure X-Ray Outpatient Center [address] [place] [address], 7th [place] [address] Margoth Souza MD [facility] [place] [address] [email or web address] 02/08/2025 2:30 PM CDT Telemedicine [facility]inary Cancer Center [facility], 7th [place] [address] Margoth Souza MD [address] [place] [phone] [email or web address] Health Maintenance Due Date Last Done Comments COVID-19 Vaccine (#1) 01/09/1969 Pneumococcal Vaccine: 50+ Years (1 of 2 - PCV) 983 01/09/1975 Influenza Vaccine (#1) 2025 08/04/2018 Medical Devices Implanted Type Area Doctor Of Audiology Device Identifier Shelf Expiration Date Model / Serial / Lot Slade Muhammad 6fr - [id number] Implanted:Qty: 1 on 04/15/2024 by John Fong MD at [facility] [place] Implant Right: Neck BARD ACCESS SYSTEMS 12/17/2024 [id number] / / [id number] Procedures Procedure Name Priority Date/Time Associated Diagnosis [...] PELVIS W CONTRAST Routine 07/15/2024 4:38 PM SEGMENT BLOCK LAYER Adenocarcinoma of stomach .CBC Routine 07/15/2024 10:01 AM SEGMENT BLOCK LAYER Adenocarcinoma of stomach CARCINOEMBRYONIC ANTIGEN Routine 025 10:01 AM SEGMENT BLOCK LAYER Adenocarcinoma of stomach LACTATE DEHYDROGENASE Routine 07/15/2024 10:01 AM SEGMENT BLOCK LAYER Adenocarcinoma of stomach PHOSPHORUS LEVEL Routine 07/15/2024 10:01 AM SEGMENT BLOCK LAYER Adenocarcinoma of stomach MAGNESIUM LEVEL Routine 07/15/2024 10:01 AM SEGMENT BLOCK LAYER Adenocarcinoma of stomach COMPREHENSIVE METABOLIC PANEL Routine 10:01 AM SEGMENT BLOCK LAYER Adenocarcinoma of stomach COMPLETE BLOOD COUNT W/ DIFFERENTIAL Routine 07/15/2024 10:01 AM SEGMENT BLOCK LAYER Adenocarcinoma of stomach RESEARCH PROTOCOL [id number] Routine 07/15 10:01 AM SEGMENT BLOCK LAYER Adenocarcinoma of stomach MDA AP IHC WORKUP Routine 07/07/2024 12:29 PM SEGMENT BLOCK LAYER Adenocarcinoma of stomach POC GLUCOSE SCREEN Routine 06/30/2024 1:23 PM SEGMENT BLOCK LAYER PATHOLOGY BIOPSY INTERPRETATION Routine 06/30/2024 12:51 PM SEGMENT BLOCK LAYER Adenocarcinoma of stomach AR ESOPHAGOGASTRODUODENOSCOP Y TRANSORAL DIAGNOSTIC 06/30/2024 12:15 PM SEGMENT BLOCK LAYER Adenocarcinoma of stomach Case Notes 06/12 per gene to schedule on 06/30, per tor to schedule 06/30 thru lunch last AM case, slot held to offer. LVM and sent mychart to schedule-DC Special Needs HYDRO EXCAVATION OPERATOR CHRIS COMPLETE 06/18.HYDRO EXCAVATION OPERATORARTURO HERNANDEZ FOR DAUGHTER WITH DETAILED INSTRUCTIONS FOR PROCEDURE IN ADDITION TO HOLD ON PLAVIX FOR 5 DAYS.HYDRO EXCAVATION OPERATORARTURO HERNANDEZ 1ST CALL 06/16. POC CHEM 8 Routine 06/30/2024 11:10 AM SEGMENT BLOCK LAYER POC GLUCOSE SCREEN Routine 06/30/2024 10:52 AM SEGMENT BLOCK LAYER POC CHEM 8 Routine 06/29/2024 9:54 AM SEGMENT BLOCK LAYER EKG, 12-LEAD (SCHEDULED) Routine 06/29/2024 Adenocarcinoma of stomach PETCT F18 FDG (FLUORODEOXYGLUCOSE) WITH CONTRAST Routine 06/20/2024 12:42 PM SEGMENT BLOCK LAYER Adenocarcinoma, NOS of stomach, NOS Malignant neoplasm of overlapping sites of esophagus POC GLUCOSE SCREEN Routine 06/20/2024 11:06 AM SEGMENT BLOCK LAYER .CBC Routine 06/20/2024 10:35 AM SEGMENT BLOCK LAYER Adenocarcinoma, NOS of stomach, NOS CARCINOEMBRYONIC ANTIGEN Routine 025 10:35 AM SEGMENT BLOCK LAYER Adenocarcinoma, NOS of stomach, NOS LACTATE DEHYDROGENASE Routine 06/20/2024 10:35 AM SEGMENT BLOCK LAYER Adenocarcinoma, NOS of stomach, NOS PHOSPHORUS LEVEL Routine 06/20/2024 10:35 AM SEGMENT BLOCK LAYER Adenocarcinoma, NOS of stomach, NOS MAGNESIUM LEVEL Routine 06/20/2024 10:35 AM SEGMENT BLOCK LAYER Adenocarcinoma, NOS of stomach, NOS COMPREHENSIVE METABOLIC PANEL Routine 10:35 AM SEGMENT BLOCK LAYER Adenocarcinoma, NOS of stomach, NOS COMPLETE BLOOD COUNT W/ DIFFERENTIAL Routine 06/20/2024 10:35 AM SEGMENT BLOCK LAYER Adenocarcinoma, NOS of stomach, NOS .CBC Routine 06/15/2024 10:39 AM SEGMENT BLOCK LAYER Adenocarcinoma of stomach CARCINOEMBRYONIC ANTIGEN Routine 025 10:39 AM SEGMENT BLOCK LAYER Adenocarcinoma, NOS of stomach, NOS LACTATE DEHYDROGENASE Routine 06/15/2024 10:39 AM SEGMENT BLOCK LAYER Adenocarcinoma, NOS of stomach, NOS PHOSPHORUS LEVEL Routine 06/15/2024 10:39 AM SEGMENT BLOCK LAYER Adenocarcinoma, NOS of stomach, NOS MAGNESIUM LEVEL Routine 06/15/2024 10:39 AM SEGMENT BLOCK LAYER Adenocarcinoma, NOS of stomach, NOS COMPREHENSIVE METABOLIC PANEL Routine 10:39 AM SEGMENT BLOCK LAYER Adenocarcinoma of stomach COMPLETE BLOOD COUNT W/ DIFFERENTIAL Routine 06/15/2024 10:39 AM SEGMENT BLOCK LAYER Adenocarcinoma of stomach .CBC Routine 06/01/2024 11:10 AM SEGMENT BLOCK LAYER Adenocarcinoma of stomach TRANSFERRIN Routine 06/01/2024 11:10 AM SEGMENT BLOCK LAYER Iron deficiency anemia, not otherwise specified Adenocarcinoma of stomach FERRITIN Routine 06/01/2024 11:10 AM SEGMENT BLOCK LAYER Iron deficiency anemia, not otherwise specified Adenocarcinoma of stomach IRON LEVEL Routine 06/01/2024 11:10 AM SEGMENT BLOCK LAYER Iron deficiency anemia, not otherwise specified Adenocarcinoma of stomach COMPREHENSIVE METABOLIC PANEL Routine 11:10 AM SEGMENT BLOCK [employer]ER Adenocarcinoma of stomach COMPLETE BLOOD COUNT W/ DIFFERENTIAL Routine 06/01/2024 11:10 AM SEGMENT BLOCK [employer]ER Adenocarcinoma of stomach POC GLUCOSE SCREEN Routine 05/19/2024 1:52 PM SEGMENT BLOCK [employer]ER PATHOLOGY BIOPSY INTERPRETATION Routine 05/19/2024 1:10 PM SEGMENT BLOCK [employer]ER Adenocarcinoma of stomach AR ESOPHAGOGASTRODUODENOSCOP Y US SCOPE W/ADJ STRXRS 05/19/2024 12:34 PM SEGMENT BLOCK LAYER Adenocarcinoma of stomach Case Notes 04/24- WAITING FOR TRIAGE TO [place] FOR 05/01-BJ Special Needs HYDRO EXCAVATION OPERATOR [place] Call Completed 04/30/24ad laproscopy on 04/15/24 POC GLUCOSE SCREEN Routine 05/19/2024 12:21 PM SEGMENT BLOCK LAYER .CBC Routine 05/18/2024 10:55 AM SEGMENT BLOCK LAYER Adenocarcinoma, NOS of stomach, NOS CARCINOEMBRYONIC ANTIGEN Routine 024 10:55 AM SEGMENT BLOCK LAYER Adenocarcinoma, NOS of stomach, NOS LACTATE DEHYDROGENASE Routine 05/18/2024 10:55 AM SEGMENT BLOCK LAYER Adenocarcinoma, NOS of stomach, NOS PHOSPHORUS LEVEL Routine 05/18/2024 10:55 AM SEGMENT BLOCK LAYER Adenocarcinoma, NOS of stomach, NOS MAGNESIUM LEVEL Routine 05/18/2024 10:55 AM SEGMENT BLOCK LAYER Adenocarcinoma, NOS of stomach, NOS COMPREHENSIVE METABOLIC PANEL Routine 10:55 AM SEGMENT BLOCK LAYER Adenocarcinoma, NOS of stomach, NOS COMPLETE BLOOD COUNT W/ DIFFERENTIAL Routine 05/18/2024 10:55 AM SEGMENT BLOCK LAYER Adenocarcinoma, NOS of stomach, NOS .CBC Routine 05/04/2024 11:34 AM SEGMENT BLOCK LAYER Adenocarcinoma, NOS of stomach, NOS RESEARCH PROTOCOL [id number] Routine 05/04 11:34 AM SEGMENT BLOCK LAYER Adenocarcinoma of stomach CARCINOEMBRYONIC ANTIGEN Routine 024 11:34 AM SEGMENT BLOCK LAYER Adenocarcinoma, NOS of stomach, NOS LACTATE DEHYDROGENASE Routine 05/04/2024 11:34 AM SEGMENT BLOCK LAYER Adenocarcinoma, NOS of stomach, NOS PHOSPHORUS LEVEL Routine 05/04/2024 11:34 AM SEGMENT BLOCK LAYER Adenocarcinoma, NOS of stomach, NOS MAGNESIUM LEVEL Routine 05/04/2024 11:34 AM SEGMENT BLOCK LAYER Adenocarcinoma, NOS of stomach, NOS COMPREHENSIVE METABOLIC PANEL Routine 11:34 AM SEGMENT BLOCK LAYER Adenocarcinoma, NOS of stomach, NOS COMPLETE BLOOD COUNT W/ DIFFERENTIAL Routine 05/04/2024 11:34 AM SEGMENT BLOCK LAYER Adenocarcinoma, NOS of stomach, NOS VERIFY CATHETER TIP PLACEMENT Routine 3:50 PM SEGMENT BLOCK LAYER Adenocarcinoma of stomach POC GLUCOSE SCREEN Routine 04/15/2024 3:21 PM SEGMENT BLOCK LAYER XR CHEST 1 VW PORTABLE Routine 2:45 PM SEGMENT BLOCK LAYER POC GLUCOSE SCREEN Routine 04/15/2024 1:05 PM SEGMENT BLOCK LAYER POC GLUCOSE SCREEN Routine 04/15/2024 12:52 PM SEGMENT BLOCK LAYER CYTOLOGY NON-PUBLIC RELATIONS PROFESSIONAL INTERPRETATION Routine 04/15/2024 12:33 PM SEGMENT BLOCK LAYER Adenocarcinoma of stomach PATHOLOGY SURGICAL INTERPRETATION Routine 04/15/2024 12:13 PM SEGMENT BLOCK LAYER Adenocarcinoma of stomach FL CENTRAL VENOUS PLACE EXCHANGE Routine 04/15/2024 11:40 AM SEGMENT BLOCK LAYER Adenocarcinoma of stomach POC GLUCOSE SCREEN Routine 04/15/2024 9:22 AM SEGMENT BLOCK LAYER AR INSJ TUNNELED CTR VAD W/SUBQ PORT AGE 5 YR/> 04/15/2024 9:16 AM SEGMENT BLOCK LAYER Adenocarcinoma of stomach Special Needs MTL@0800 AR US VASC ACCESS SITS VSL PATENCY NDL ENTRY 04/15/2024 9:16 AM SEGMENT BLOCK LAYER Adenocarcinoma of stomach Special Needs MTL@0800 AR FLUORO CENTRAL VENOUS ACCESS DEV PLACEMENT 04/15/2024 9:16 AM SEGMENT BLOCK LAYER Adenocarcinoma of stomach Special Needs MTL@0800 AR LAPS ABD PRTM&OMENTUM DX W/WO SPEC BR/WA SPX 04/15/2024 9:16 AM SEGMENT BLOCK LAYER Adenocarcinoma of stomach Special Needs MTL@0800 CT ABDOMEN PELVIS W CONTRAST Routine 11:18 AM SEGMENT BLOCK LAYER .CBC Routine 04/12/2024 9:04 AM SEGMENT BLOCK LAYER LIPASE LEVEL Routine 04/12/2024 9:04 AM SEGMENT BLOCK LAYER AMYLASE LEVEL Routine 04/12/2024 9:04 AM SEGMENT BLOCK LAYER LACTATE DEHYDROGENASE Routine 04/12/2024 9:04 AM SEGMENT BLOCK LAYER FRACTIONATED BILIRUBIN Routine 9:04 AM SEGMENT BLOCK LAYER PHOSPHORUS LEVEL Routine 04/12/2024 9:04 AM SEGMENT BLOCK LAYER MAGNESIUM LEVEL Routine 04/12/2024 9:04 AM SEGMENT BLOCK LAYER COMPREHENSIVE METABOLIC PANEL Routine 9:04 AM SEGMENT BLOCK LAYER COMPLETE BLOOD COUNT W/ DIFFERENTIAL Routine 04/12/2024 9:04 AM SEGMENT BLOCK LAYER .CBC Routine 04/09/2024 11:09 AM SEGMENT BLOCK LAYER Encounter for other preprocedural examination Atherosclerosis of coronary artery bypass graft without angina pectoris, not otherwise specified THYROID STIMULATING HORMONE Routine 03/21 11:09 AM SEGMENT BLOCK LAYER Encounter for other preprocedural examination Atherosclerosis of coronary artery bypass graft without angina pectoris, not otherwise specified HEMOGLOBIN A1C Routine 04/09/2024 11:09 AM SEGMENT BLOCK LAYER 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 Encounter for other preprocedural examination COMPREHENSIVE METABOLIC PANEL Routine 11:09 AM SEGMENT BLOCK LAYER Encounter for other preprocedural examination Atherosclerosis of coronary artery bypass graft without angina pectoris, not otherwise specified COMPLETE BLOOD COUNT W/ DIFFERENTIAL Routine 04/09/2024 11:09 AM SEGMENT BLOCK LAYER Encounter for other preprocedural examination Atherosclerosis of coronary artery bypass graft without angina pectoris, not otherwise specified EKG, 12-LEAD (SCHEDULED) Routine 04/09/2024 Adenocarcinoma of stomach Hyperlipidemia, not otherwise specified Encounter for other preprocedural examination Atherosclerosis of coronary artery bypass graft without angina pectoris, not otherwise specified PATHOLOGY OUTSIDE INTERPRETATION Routine 04/02/[address] ABDOMEN AND PELVIS Routine 2023 8:21 AM SEGMENT BLOCK LAYER Cancer OSI CHEST Routine 03/23/2024 7:37 PM SEGMENT BLOCK LAYER Cancer OSI CT CHEST ABDOMEN PELVIS Routine 08/2023 7:37 PM SEGMENT BLOCK LAYER Cancer OSI CHEST Routine 03/23/2024 7:37 PM SEGMENT BLOCK LAYER Cancer OSI CT CHEST Routine 03/22/2024 8:21 AM SEGMENT BLOCK LAYER Cancer OSI CT ABDOMEN AND PELVIS Routine 2023 7:36 PM CDT Cancer OSI CHEST Routine 01/20/2024 7:37 PM CDT Cancer OSI CHEST Routine 01/20/2024 7:37 PM CDT Cancer after 01/16/2024 Results * Sodium Level, Urine (11/13/2024 2:01 PM CDT) Urine Sodium 67 mmol/L 11/13/2024 3:28 PM CDT [facility] Comment:Normal range not cyndee ilable for collections less than 24 hours in duration. Urine Voided urine specimen / Unknown Non-blood Collection / Unknown 11/13/2024 2:01 PM CDT 11/13/2024 2:05 PM CDT Shira Segovia MD URINE ORDERABLES Final Result Performing Organization Address City/[facility]/ZIP Co de Phone Number [facility] Unless otherwise noted, all lab tests performed by: Division of Pathology and Laboratory Medicine [address] [place] [phone] * Potassium Urine (11/13/2024 2:01 PM CDT) Urine Potassium 73 mmol/L 3:28 PM CDT [facility] Comment:Normal range not cyndee ilable for collections less than 24 hours in duration. Urine Voided urine specimen / Unknown Non-blood Collection / Unknown 11/13/2024 2:01 PM CDT 11/13/2024 2:05 PM CDT Shira Segovia MD URINE ORDERABLES Final Result [facility] Unless otherwise noted, all lab tests performed by: Division of Pathology and Laboratory Medicine [address] [place] [phone] * Osmolality Urine (11/13/2024 2:01 PM CDT) Urine Osmolality 724 50 - 1,400 mOsm/kg H2O 11/13/2024 3:27 PM CDT [facility] Comment:Urinary osmolality m ay vary [...] Shira Segovia MD URINE ORDERABLES Final Result [facility] Unless otherwise noted, all lab tests performed by: Division of Pathology and Laboratory Medicine [address] [place] [phone] * (ABNORMAL) .CBC (11/13/2024 1:57 PM CDT) Only the most recent of17 resultswithin the time period is included. White Blood Cell 9.6 4.1 - 10.5 K/uL 11/13/2024 2:45 PM [facility] Red Blood Cell 11/13/2024 2:45 PM [facility] Comment:See Scanned Document Hemoglobin 11.6(L) 13.3 - 17.4 g/dL 11/13/2024 2:45 PM [facility] Hematocrit 11/13/2024 2:45 PM T [facility] Comment:See Scanned Document Mean Cell Volume 11/14/19 2:45 PM T [facility] Comment:See Scanned Document Mean Cell Hemoglobin 11/13/2024 2:45 PM [facility] Comment:See Scanned Document Mean Cell Hemoglobin Concentration 11/13/2024 2:45 PM [facility] Comment:See Scanned Document RDW-SD 11/13/2024 2:45 PM [facility] Comment:See Scanned Document Red Cell Diameter Width 11/13/2024 2:45 PM [facility] Comment:See Scanned Document Platelet 165 160 - 397 K/uL 11/13/2024 2:45 PM [facility] Mean Platelet Volume 11/13/2024 2:45 PM [facility] Comment:See Scanned Document Neutrophil % 78.1(H) 43.2 - 72.7 % 11/13/2024 2:45 PM CDT [facility] Neutrophil Abs 7.50(H) 1.95 - 7.25 K/uL 11/13/2024 2:45 PM CDT [facility] Lymphocyte Abs 1.08 1.01 - 3.24 K/uL 11/13/2024 2:45 PM CDT [facility] Blood Peripheral blood specimen / Unknown Venipuncture / Unknown 11/13/2024 1:57 PM CDT 11/13/2024 2:02 PM CDT us Gillian Gomez PA-C LAB BLOOD ORDERABLES Final Result [facility] [address] [place] [address] * (ABNORMAL) Comprehensive Metabolic Panel (11/13/2024 1:57 PM CDT) Only the most recent of18 resultswithin the time period is included. Bilirubin Total <0.3 0.0 - 1.2 mg/dL 11/13/2024 2:33 PM T [facility] Comment:Indocyanine Green (I CG) may cause falsely elevated bilirubin results. Total and direct bilirubin must not be measured from samples containing indocyanine green. False elevation of total bilirubin can be seen in patients with IgG concentrations above 28 g/L. eGFR 100 >=60 mL/min/1. 73 sq. m 11/13/2024 2:33 PM [facility] Comment: The eGFRcr is calculated with the 202 CKD-EPI creatinine equation using creatinine, patient's age, [...] - 8.3 gm/dL 11/13/2024 2:33 PM [facility] Calcium Level Total 9.2 8.2 - 10.2 mg/dL 11/13/2024 2:33 PM [facility] Alkaline Phosphatase 99 40 - 129 U/L 11/13/2024 2:33 PM [facility] Albumin Level 3.7 3.5 - 5.2 gm/dL 11/13/2024 2:33 PM [facility] AST 13 <=40 U/L 11/13/2024 2:33 PM [facility] ALT 6 <=41 U/L 11/13/2024 2:33 PM [facility] Sodium Level 135(L) 136 - 145 mmol/L 11/13/2024 2:33 PM [facility] Potassium Level 4.4 3.4 - 4.5 mmol/L 11/13/2024 2:33 PM [facility] Chloride 98 98 - 107 mmol/L 11/13/2024 2:33 PM [facility] CO2 26 22 - 29 mmol/L 11/13/2024 2:33 PM [facility] Anion Gap 11 4 - 14 mmol/L 11/13/2024 2:33 PM [facility] Creatinine 0.83 0.67 - 1.17 mg/dL 11/13/2024 2:33 PM [facility] BUN 19 6 - 23 mg/dL 11/13/2024 2:33 PM [facility] Glucose Level 217(H) 70 - 99 mg/dL 11/13/2024 2:33 PM [facility] Comment: Effective 12/14/15, the glucose reference intervals have been updated based on [place] [employer] guidelines (Standards of Medical Care [...] BLOOD ORDERABLES Final Result Performing Organization Address City/[facility]/ZIP Co de Phone Number [facility] [address] [place] [address] * Osmolality (11/13/2024 1:57 PM CDT) Pathologist [facility] Osmolality 291 275 - 300 mOsm/kg 11/13/2024 3:30 PM CDT [facility] Comment:Units in mOsm per kg of water. Blood Peripheral blood specimen / Unknown Venipuncture / Unknown 11/13/2024 1:57 PM CDT 11/13/2024 2:02 PM CDT Shira Segovia MD LAB BLOOD ORDERABLES Final Resul t Performing Organization Address [facility] de Phone Number [facility] Unless otherwise noted, all lab tests performed by: Division of Pathology and Laboratory Medicine [address] [place] [phone] * X-ray Foot 3+ Views Bilateral (11/13/2024 [...] unexpected and potentially actionable. Shira Segovia MD [facility]AG[facility] ORDERABLE S Final Result * (ABNORMAL) POC Glucose Screen - Fingerstick (10/29/2024 11:50 AM CDT) Only the most recent of13 resultswithin the time period is included. Glucose Screen 113(H) 70 - 99 mg/dL 10/29/2024 11:52 AM CDT [facility] POC Sample Type Capillary 10/29/2024 11:52 AM CDT [facility] Blood 10/29/2024 11:5 0 AM CDT 10/29/2024 11:52 AM CDT Narrative [facility] - 10/29/2024 11:52 AM CDT [...] - DEVICE Final Result Performing Organization Address [facility] Co de Phone Number [facility] Unless otherwise noted, all lab tests performed by: Division of Pathology and Laboratory Medicine [address] [place] [phone] * (ABNORMAL) Hemoglobin A1c (10/28/2024 11:01 AM CDT) Only the most recent of2 resultswithin the time period is included. Hemoglobin A1c 6.3(H) 4.3 - 5.6 % 10/28/2024 7:05 PM CDT [facility] Blood Peripheral blood specimen / Unknown Venipuncture / Unknown 10/28/2024 11:01 AM CDT 10/28/2024 11:02 AM CDT Narrative [facility] - 10/28/2024 7:05 PM CDT HbA1c values >=6.5% are diagnostic of diabetes mellitus. Diagnosis should be confirmed by repeat testing. Therapeutic Action suggested: >8.0% HbA1c; Goal of therapy: <7.0% HbA1c Bessy Gaming APRN LAB BLOOD ORDERABLES Fin al Result Performing Organization Address [facility] de Phone Number [facility] Unless otherwise noted, all lab tests performed by: Division of Pathology and Laboratory Medicine [address] [place] [phone] * EKG, 12-Lead (Portable) (10/28/2024) Only the most recent of3 resultswithin the time period is included. us John Forte MD ECG ORDERABLES Final Result Performing Organization Address [facility] Co de Phone Number [facility] IECG * [...] unexpected and potentially actionable. Mohan Torres MD IMEdith CT ORDERABLES Final Resu lt * X-ray [...] evidence of bowel obstruction. Mohan Torres MD IMG DIAGNOSTIC IMAGING ORDER YASHIRA Final Result * (ABNORMAL) POC Chem 8 without Hemoglobin and Hematocrit (10/25/2024 8:26 AM CDT) POC Sodium 136(L) 138 - 146 mmol/L 10/25/2024 8:30 AM CDT [facility] POC Potassium 4.9 3.5 - 4.9 mmol/L 10/25/2024 8:30 AM CDT [facility] POC Chloride 101 98 - 109 mmol/L 10/25/2024 8:30 AM CDT [facility] POC VTCO2 25 24 - 29 mmol/L 10/25/2024 8:30 AM CDT [facility] POC Anion Gap 16 10 - 20 mmol/L 10/25/2024 8:30 AM [facility] POC BUN 16 8 - 26 mg/dL 10/25/2024 8:30 AM [facility] POC Creatinine 0.8 0.6 - 1.3 mg/dL 10/25/2024 8:30 AM [facility] Comment:Medications, especia lly hydroxyurea or supplements, such as ascorbate, can interfere with test results causing a falsely and significantly higher result than expected. If a problem is suspected with a patient's result, a sample should be sent to the laboratory for confirmatory testing. POC I Glu 147(H) 70 - 99 mg/dL 10/25/2024 8:30 AM [facility] Comment:Medications, especia lly hydroxyurea or supplements, such as ascorbate, can interfere with test results causing a falsely and significantly higher result than expected. If a problem is suspected with a patient's result, a sample should be sent to the laboratory for confirmatory testing. POC Ionized Calcium 1.20 1.12 - 1.32 mmol/L 10/25/2024 8:30 AM [facility] POC Sample Type Venous 8:30 AM [facility] POC eGFR 101 >=60 mL/min/1.7 3 sq. m 10/25/2024 8:30 AM [facility] Comment: The eGFRcr is calculated with the [...] CDT 10/25/2024 8:30 AM CDT Narrative [facility] - 10/25/2024 8:30 AM CDT [...] ORDERABLE S Final Result Performing Organization Address [facility] de Phone Number [facility] Unless otherwise noted, all lab tests performed by: Division of Pathology and Laboratory Medicine [address] [place] [phone] * Phosphorus Level (10/25/2024 8:15 AM CDT) Only the most recent of10 resultswithin the time period is included. Phosphorus Level 2.7 2.5 - 4.5 mg/dL 10/25/2024 8:55 AM CDT [facility] Blood Peripheral blood specimen / Unknown Port / Unknown 10/25/2024 8:15 AM CDT 10/25/2024 8:22 AM CDT us Mohan Torres MD LAB BLOOD ORDERABLES Final R esult Performing Organization Address [facility] de Phone Number [facility] Unless otherwise noted, all lab tests performed by: Division of Pathology and Laboratory Medicine [address] [place] [phone] * Magnesium Level (10/25/2024 8:15 AM CDT) Only the most recent of10 resultswithin the time period is included. Magnesium Level 2.0 1.6 - 2.6 mg/dL 10/25/2024 8:55 AM CDT [facility] Blood Peripheral blood specimen / Unknown Port / Unknown 10/25/2024 8:15 AM CDT 10/25/2024 8:22 AM CDT Mohan Torres MD LAB BLOOD ORDERABLES Final R esult Performing Organization Address City/[facility]/ZIP Co de Phone Number [facility] Unless otherwise noted, all lab tests performed by: Division of Pathology and Laboratory Medicine [address] [place] [phone] * (ABNORMAL) Lipase Level (10/25/2024 8:15 AM CDT) Only the most recent of3 resultswithin the time period is included. Lipase Level 202(H) 13 - 60 U/L 10/27/2024 7:12 AM CDT [facility] Blood Peripheral blood specimen / Unknown Port / Unknown 10/25/2024 8:15 AM CDT 10/25/2024 8:22 AM CDT Narrative [facility] - 10/27/2024 7:12 AM CDT Reference range established based on adult population Gillian Gomez PA-C LAB BLOOD ORDERABLES Final Result Performing Organization Address [facility] de Phone Number [facility] Unless otherwise noted, all lab tests performed by: Division of Pathology and Laboratory Medicine [address] [place] [phone] * LDH (10/25/2024 8:15 AM CDT) Only the most recent of10 resultswithin the time period is included. LDH 186 135 - 225 U/L 10/25/2024 8:55 AM CDT [facility] Blood Peripheral blood specimen / Unknown Port / Unknown 10/25/2024 8:15 AM CDT 10/25/2024 8:22 AM CDT Narrative [facility] - 10/25/2024 8:55 AM CDT Results greater than 1651 U/L may not be reliable due to matrix effect with extended dilution as it exceeds the analytics lead's recommended limit. Caution should be exercised when interpreting such values and done in conjunction with clinical context. Mohan Torres MD LAB BLOOD ORDERABLES Final R esult [facility] Unless otherwise noted, all lab tests performed by: Division of Pathology and Laboratory Medicine [address] [place] [phone] * (ABNORMAL) Amylase Level (10/25/2024 8:15 AM CDT) Only the most recent of3 resultswithin the time period is included. Amylase Level 107(H) 28 - 100 U/L 10/27/2024 7:12 AM CDT [facility] Blood Peripheral blood specimen / Unknown Port / Unknown 10/25/2024 8:15 AM CDT 10/25/2024 8:22 AM CDT Gillian Gomez PA-C LAB BLOOD ORDERABLES Final Result Performing Organization Address City/[facility] Co de Phone Number [facility] Unless otherwise noted, all lab tests performed by: Division of Pathology and Laboratory Medicine [address] [place] [phone] * Fractionated Bilirubin (10/25/2024 7:40 AM CDT) Only the most recent of2 resultswithin the time period is included. Bilirubin Direct 10/26/19 8:50 AM CDT [facility] Comment: Direct and indirect bilirubin will not be reported when Total bilirubin result is <0.3 mg/dL Indocyanine Green (ICG) may cause falsely elevated bilirubin results. Total and direct bilirubin must not be measured from samples containing indocyanine green. Bilirubin Indirect 2024 8:50 AM CDT [facility] Comment:Direct and indirect bilirubin will not be reported when Total bilirubin result is <0.3 mg/dL Bilirubin Total <0.3 0.0 - 1.2 mg/dL 10/25/2024 8:50 AM CDT [facility] Comment: Direct and indirect bilirubin [...] ORDERABLES Final R esult Performing Organization Address City/[facility]/ZIP Co de Phone Number [facility] Unless otherwise noted, all lab tests performed by: Division of Pathology and Laboratory Medicine [address] [place] [phone] * CEA (10/25/2024 7:40 AM CDT) Only the most recent of8 resultswithin the time period is included. Carcinoembryonic Antigen 3.3 <=3.8 ng/mL 10/25/2024 9:14 AM CDT [facility] Blood Venous blood specimen / Unknown Port / Unknown 10/25/2024 7:40 AM CDT 10/25/2024 8:14 AM CDT Narrative [facility] - 10/25/2024 9:14 AM CDT Reference Ranges (age 20-69 years): Non-smoker: <= 3.8 ng/mL Smoker: <= 5.5 ng/mL This test is measured by electrochemiluminescence immunoassay on [employer]el[employer] Nikki immunoassay analyzers. Results obtained in different methods are not interchangeable. us Gillian Gomez PA-C LAB BLOOD ORDERABLES Final Result Performing Organization Address City/[facility]/ZIP Co de Phone Number [facility] Unless otherwise noted, all lab tests performed by: Division of Pathology and Laboratory Medicine [address] [place] [phone] * Research Protocol [id number] (07/15/2024 10:01 AM SEGMENT BLOCK [employer]ER) Only the most recent of2 resultswithin the time period is included. Research Protocol Specimen Specimen Collected, Ready for Pickup. 07/15/2024 12:00 PM SE[employer]MENT BLOCK [employer]ER [facility] Blood Venipuncture / Unknown 07/15/2024 10:01 AM [employer]ER 07/15/2024 10:10 AM SEGMENT BLOCK [employer]AYER Marianela Hutchinson MD [facility] CODES Final Re sult Performing Organization Address [facility]/ZIP Co de Phone Number [facility] Unless otherwise noted, all lab tests performed by: Division of Pathology and Laboratory Medicine [address] [place] [address] * IHC Workup (07/07/2024 12:29 PM SEGMENT BLOCK [employer]ER) Tissue 07/07/2024 12:2 9 PM [employer]ER 07/07/2024 12:29 PM SEGMENT BLOCK [employer]AYER Gillian Gomez PA-C [facility] BI[facility]ARK[facility] ORDERABLE S Final Result Performing Organization Address [facility] de Phone Number [facility] [place] [address], * Pathology Biopsy Interpretation (06/30/2024 12:51 PM SEGMENT BLOCK [employer]ER) Only the most recent of2 resultswithin the time period is included. Addendum 1 By immunohistochemistry, approximately 10% of the tumor cells show weakly to moderately cytoplasmic staining for claudin 18. By immunohistochemistry the combined positive score (CPS) for PD-L1 is <1. 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 07/10/2024 8:47 AM [facility]S at 1826 SEGMENT BLOCK LAYER Gross Description A: Esophagus, lower esophageal ulcer at 37cm: Multiple soft light castillo tissue fragments, 0.7 x 0.6 x 0.1 cm in aggregate, entirely submitted in A1. ET 07/10/2024 8:47 AM [facility]S Biomarker Block(s) Block for biomarker testing: A1 07/10/2024 8:47 AM [facility] Disclaimer "Some tests reported here may have been developed and performance characteristics determined by [facility] Pathology and Laboratory Medicine. These tests have not been specifically cleared or approved by the U.S. Food and Drug Administration. If applicable, controls were reviewed and showed appropriate reactivity." 07/10/2024 8:47 AM [facility] Tissue (Esophagus) 06/30/2024 12:51 PM SEGMENT BLOCK LAYER 06/30/2024 2:51 PM [facility] us Brandon Galo MD LAB PATHOLOGY ORDERA BLES Edited Result - Final [address] [address], [place] * (ABNORMAL) POC Chem 8 (06/30/2024 11:10 AM SEGMENT BLOCK LAYER) Only the most recent of2 resultswithin the [...] for CKD. Blood 06/30/2024 11:1 0 AM SEGMENT BLOCK LAYER 06/30/2024 11:13 AM SEGMENT BLOCK LAYER Narrative [facility] - 06/30/2024 11:13 AM SEGMENT BLOCK LAYER Method description: The i-STAT is an analyzer [...] DE VICE Final Result Performing Organization Address [facility] Co de Phone Number [facility] Unless otherwise noted, all lab tests performed by: Division of Pathology and Laboratory Medicine [address] [place] [id number] * EKG, 12-Lead (Scheduled) (06/29/2024) Only the most recent of2 resultswithin the time period is included. Mary Kay Santamaria APRN ECG ORDERABLES Final R esult Performing Organization Address [facility]/ZIP Co de Phone Number [facility] * PETCT F18 FDG (Fluorodeoxyglucose) with contrast (06/20/2024 12:42 PM SEGMENT BLOCK LAYER) Anatomical Region Laterality Modality Whole Body Positron Emissio n Tomography (PET) 06/20/2024 3:10 PM SEGMENT BLOCK LAYER Impressions 06/20/2024 4:38 PM SEGMENT BLOCK LAYER Biopsy-proven malignancy in the region of the [...] and potentially actionable. Narrative 06/20/2024 4:38 PM SEGMENT BLOCK LAYER FULL RESULT: Examination: 18F-FDG-PET/CT with contrast, 06/20/2024 [...] * Transferrin with TIBC (06/01/2024 11:10 AM SEGMENT BLOCK LAYER) Transferrin 211 200 - 360 mg/dL 06/01/2024 12:15 PM SEGMENT BLOCK LAYER [facility] Total Iron Binding Capacity 295 250 - 450 mcg/dL 06/01/2024 12:15 PM SEGMENT BLOCK LAYER [facility] Blood Peripheral blood specimen / Unknown Venipuncture / Unknown 06/01/2024 11:10 AM SE[facility]MENT [facility]ER 06/01/2024 11:23 AM SEGMENT BLOCK LAYER Marianela Hutchinson MD LAB BLOOD ORDERABLES Final Re sult [facility] Unless otherwise noted, all lab tests performed by: Division of Pathology and Laboratory Medicine [address] [place] [id number] * (ABNORMAL) Iron Level (06/01/2024 11:10 AM SEGMENT BLOCK LAYER) Iron Level 38(L) 59 - 158 mcg/dL 06/01/2024 12:15 PM SEGMENT BLOCK LAYER [facility] Is patient fasting? No 06/01/2024 12:15 PM SEGMENT BLOCK LAYER [facility] Blood Peripheral blood specimen / Unknown Venipuncture / Unknown 06/01/2024 11:10 AM SEGMENT BLOCK LAYER 06/01/2024 11:23 AM SEGMENT BLOCK LAYER Marianela Hutchinson MD LAB BLOOD ORDERABLES Final Re sult Performing Organization Address [facility] de Phone Number [facility] Unless otherwise noted, all lab tests performed by: Division of Pathology and Laboratory Medicine [address] [place] [address] Unless otherwise noted, all lab tests performed by: Division of Pathology and Laboratory Medicine [address] [place] [address] * Ferritin Level (06/01/2024 11:10 AM SEGMENT BLOCK LAYER) Ferritin Level 59 30 - 400 ng/mL 06/01/2024 12:15 PM SEGMENT BLOCK LAYER [facility] Blood Peripheral blood specimen / Unknown Venipuncture / Unknown 06/01/2024 11:10 AM SEGMENT BLOCK LAYER 06/01/2024 11:23 AM SEGMENT BLOCK LAYER Narrative [facility] - 06/01/2024 12:15 PM SEGMENT BLOCK LAYER Reference range established for age 20 - 60 years Marianela Hutchinson MD LAB BLOOD ORDERABLES Final Re sult Performing Organization Address [facility] Co de Phone Number [facility] Unless otherwise noted, all lab tests performed by: Division of Pathology and Laboratory Medicine [address] [place] [address] * Tip Verification Central Vascular Access Device (04/15/2024 3:50 PM SEGMENT BLOCK LAYER) Narrative John Fong MD - 04/15/2024 3:50 PM SEGMENT BLOCK LAYER John Fong MD 04/15/2024 3:50 PM Central Vascular Access Device Tip Verification Performed by: John Fong MD Authorized by: John Fong MD CVAD Properties Date device placed: 04/15/2024 [facility] Type: Implanted venous port Catheter lumen: Single lumen Vein location: Internal jugular vein Laterality: Right Tip in good position and cleared for infusion us John Fong MD IV THERAPY ORDERABLES Final Re sult * XR Chest 1 View Portable (04/15/2024 2:45 PM SEGMENT BLOCK LAYER) Anatomical Region Laterality Modality Chest Digital Radiogra phy 04/15/2024 2:50 PM SEGMENT BLOCK LAYER Impressions 04/15/2024 2:53 PM SEGMENT BLOCK LAYER 1. Right infusion port catheter terminates over [...] and potentially actionable. Narrative 04/15/2024 2:53 PM SEGMENT BLOCK LAYER FULL RESULT: Examination: XR CHEST 1 VW [...] IMAGING ORDERAB LES Final Result * Cytology Non-Regional Manager Interpretation (04/15/2024 12:33 PM SEGMENT BLOCK LAYER) Gross Description 4 Pap Stain Slides 750 ml. clear yellow fluid Specimen concentrated by cytocentrifugation technique 4 4:07 PM SEGMENT BLOCK LAYER [facility] Major Classification [facility]/benign 4 4:07 PM SEGMENT BLOCK LAYER [facility] at 1607 SEG[address] LAYER Diagnosis Peritoneal washing: No metastatic carcinoma identified Reactive mesothelial cells and histiocytes 4 4:07 PM SEGMENT BLOCK LAYER [facility] at 1607 [address] LAYER Retained/Biomark er Testing SR:4S 4 4:07 PM SEGMENT BLOCK LAYER [facility] Informational Points Some tests reported here may have been developed and performance characteristics determined by [facility] Pathology and Laboratory Medicine. These tests have not been specifically cleared or approved by the U.S. Food and Drug Administration. 4 4:07 PM SEGMENT BLOCK LAYER [facility] Washing (Peritoneal Washing) 04/15/2024 12:33 PM SEGMENT BLOCK LAYER 04/15/2024 1:10 PM SEGMENT BLOCK LAYER John Fong MD LAB CYTOLOGY ORDERABLES Final Result Performing Organization Address City/[facility] Co de Phone Number [address] [address], [place] * Pathology Surgical Interpretation (04/15/2024 12:13 PM SEGMENT BLOCK LAYER) Submitted Clinical History Adenocarcinoma of stomach [C16.9] 04/20/2024 8:13 PM SEGMENT BLOCK LAYER [facility] Diagnosis A. Falciform ligament, resection: Fibroadipose tissue, no tumor present 04/20/2024 8:13 PM SEGMENT BLOCK LAYER [facility] at 2013 SEGMENT BLOCK LAYER Gross Description A: Falciform ligament, falciorm ligament biopsy....or 16: Consists of a fragment of castillo-yellow, lobulated fat (0.8 x 0.6 x 0.5 cm) entirely submitted in cassette A1. EF 04/20/2024 8:13 PM SEGMENT BLOCK LAYER [facility] Disclaimer "Some tests reported here may have been developed and performance characteristics determined by [facility] Pathology and Laboratory Medicine. These tests have not been specifically cleared or approved by the U.S. Food and Drug Administration. If applicable, controls were reviewed and showed appropriate reactivity." 04/20/2024 8:13 PM SEGMENT BLOCK LAYER [facility] Tissue (Falciform Ligament) 04/15/2024 12:13 PM SEGMENT BLOCK LAYER 04/15/2024 1:18 PM SEGMENT BLOCK LAYER John Fong MD LAB PATHOLOGY ORDERABLES Final Result Performing Organization Address City/[facility]/ZIP Co de Phone Number [address] [address], [place] * [place] Central Venous Place Exchange (04/15/2024 11:40 AM SEGMENT BLOCK LAYER) Narrative Systemgenerated, Documentation - 04/15/2024 11:40 AM SEGMENT BLOCK LAYER This procedure requires no interpretation from the radiologist. us John Fong MD IMG FLUOROSCOPY ORDERABLES Fin al Result * CT Abdomen Pelvis with IV Contrast (04/12/2024 11:18 AM SEGMENT BLOCK LAYER) Anatomical Region Laterality Modality Abdomen, Pelvis Computed Tomogra phy 04/12/2024 11:5 2 AM SEGMENT BLOCK LAYER Impressions 04/12/2024 12:11 PM SEGMENT BLOCK LAYER Wall thickening and slight mucosal irregularity of [...] and potentially actionable. Narrative 04/12/2024 12:11 PM SEGMENT BLOCK LAYER FULL RESULT: Examination: CT ABDOMEN PELVIS W [...] Final Result * TSH (04/09/2024 11:09 AM SEGMENT BLOCK LAYER) Thyroid Stimulating Hormone 1.53 0.27 - 4.20 mcunit/mL 04/09/2024 12:23 PM SEGMENT BLOCK LAYER [facility] Blood Peripheral blood specimen / Unknown Venipuncture / Unknown 04/09/2024 11:09 AM SEGMENT BLOCK LAYER 04/09/2024 11:19 AM SEGMENT BLOCK LAYER Ceci Nicholson MD LAB BLOOD ORDERABLES Final Resu lt [facility] Unless otherwise noted, all lab tests performed by: Division of Pathology and Laboratory Medicine [address] [place] [id number] * Pathology Outside Interpretation (04/02/2024) Materials Received Accession#, Stained, Block, Unstained Collected Received A. [id number], 20 SS, 0 BLOCKS, 0 USS 04/02/2024 04/22/2024 04/22/2024 5:36 PM SEGMENT BLOCK LAYER [facility] Diagnosis Outside ([id number], 20 SS, 0 BLOCKS, 0 USS, collected [...] CELL FEATURES. See comment. 04/22/2024 5:36 PM SEGMENT BLOCK LAYER [facility] AP [facility] at 1736 SEG[address] BLOCK LAYER Comment Part A. There is no evidence of malignancy on H&E and immunohistochemical stain for Cytokeratin AE1/AE3. Of note, the biopsy may not be surgical device sales representative of the entire lesion. Please [...] immunohistochemistry: Negative (Score: 0) 04/22/2024 5:36 PM SEGMENT BLOCK LAYER [facility] Biomarker Block(s) Block for biomarker testing: C1 Normal block: N/A 04/22/2024 5:36 PM SEGMENT BLOCK LAYER [facility] Disclaimer "Some tests reported here may have been developed and performance characteristics determined by [facility] Pathology and Laboratory Medicine. These tests have not been specifically cleared or approved by the U.S. Food and Drug Administration. If applicable, controls were reviewed and showed appropriate reactivity." 04/22/2024 5:36 PM SEGMENT BLOCK LAYER [facility] Tissue 04/02/2024 04/22/2024 6:4 0 AM SEGMENT BLOCK LAYER Sybil Edmonds MD LAB PATHOLOGY ORDERABLES Final R esult [facility] Cancer [address] [address], [place] * OSI CT Abdomen and Pelvis (04/01/2024 8:21 AM SEGMENT BLOCK LAYER) Only the most recent of2 resultswithin the time period is included. Narrative Systemgenerated, Documentation - 04/27/2024 8:22 AM SEGMENT BLOCK LAYER Study acquired at another institution. For comparison only. No [facility] originated interpretation requested or available. [facility] DO IMG OUTSIDE IMAGE ORDERAB LES Final Result * OSI CT CHEST ABDOMEN PELVIS (03/23/2024 7:37 PM SEGMENT BLOCK LAYER) Narrative Systemgenerated, Documentation - 04/09/2024 7:37 PM SEGMENT BLOCK LAYER Study acquired at another institution. For comparison only. No MD Gimenez originated interpretation requested or available. us Margoth Souza MD IMG OUTSIDE IMAGE ORDERABLES Fin al Result * OSI Chest (03/23/2024 7:37 PM SEGMENT BLOCK LAYER) Only the most recent of4 resultswithin the time period is included. Narrative Systemgenerated, Documentation - 04/09/2024 7:37 PM SEGMENT BLOCK LAYER Study acquired at another institution. For comparison only. No MD Gimenez originated interpretation requested or available. us Margoth Souza MD IMG OUTSIDE IMAGE ORDERABLES Fin al Result * OSI CT Chest (03/22/2024 8:21 AM SEGMENT BLOCK LAYER) Narrative Systemgenerated, Documentation - 04/27/2024 8:21 AM SEGMENT BLOCK LAYER Study acquired at another institution. For comparison only. No MD Gimenez originated interpretation requested or available. us Eaglewerner Zhu DO IMG OUTSIDE IMAGE ORDERAB LES Final Result after 01/16/2024 Insurance MEDICARE PART A AND B MEDICARE [...] based on Advanced Directive Documentation Care Teams Dry Goods Clerk Relationship Specialty Start Date End Date Margoth Souza MD [address] [place] [phone] [email or web address] PCP - General Urology 07/30/23 04/14/24 Eagle Zhu DO [address] [place] [id number] [email or web address] PCP - External Primary Care Provider Family Practice 04/08/24 Marianela Hutchinson MD [address] [place] [phone] [email or web address] [email or web address] - General Gastrointestinal Medical Oncology 05/04/24 Mary Jane Cassidy MD [address] [place] [phone] [email or web address] Consulting Physician Endocrinology 12/09/23 Barry He MD [address] [place] [phone] [email or web address] Consulting Physician Internal Medicine 12/23/23 Patience Hunt MD [address] [place] [phone] [email or web address] Consulting Physician Endocrinology 12/31/23 Marianela Hutchinson MD [address] [place] [phone] [email or web address] Consulting Physician Gastrointestinal Medical Oncology 04/13/24 Margoth Souza MD [address] [place] [phone] [email or web address] Consulting Physician Urology 04/15/24 Ceci Nicholson MD [address] [place] [phone] [email or web address] Consulting Physician Internal Medicine 04/09/24 Sigifredo Davenport MD [address] [place] [phone] [email or web address] Consulting Physician Internal Medicine 06/29/24 Abilio Ng PA-C [address] [place] [address] Physician Ranger Aide Interventional Radiology 10/02/23 Shira Segovia MD [address] [place] [address] [email or web address] Consulting Physician Internal Medicine 10/30/24 Ancelmo Love MD [address] [place] [id number] General Surgery 01/05/25
[2025-01-15] MEDS ORDERED: ONDANSETRON 4 MG/2 ML VIAL ONE (07:02)
[2025-01-15] MEDS ORDERED: PROMETHAZINE INJ 25 MG/ML AMP ONE (07:03)
--- NOTE | 2025-01-15 07:55 | EDPHYS ---
Physician Documentation [facility] Name: Zeke Mackay Age: 60 yrs Sex: Male : 1965 Arrival Date: 01/15/2025 Time: 06:12 Bed 20 Private MD: Eagle Zhu ED Physician Jag Horvath HPI: 01/15 06:15 This 60 yrs old Male presents to ER via Unassigned with complaints of sp4 Abdominal Pain. 22:17 60-year-old male with history of gastric cancer and history of persistent nausea and sp4 vomiting presents with complaint of worsening nausea and vomiting. Patient reports that he has also gangrenous right foot at the site of transmetatarsal right foot amputation. In fact patient is scheduled to go to surgery today with Dr. Love staff for debridement of the right foot transmetatarsal amputation site. Patient requests intramuscular medications for nausea. . 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 - Infectious Disease History:: Denies. - Social history:: Smoking status: Patient denies any tobacco usage or history of. - Family history:: not pertinent. ROS: 22:18 Constitutional: Negative for fever, chills, and weight loss, positive nausea, positive sp4 vomiting. 22:18 MS/extremity: Positive for Positive for right foot transmetatarsal amputation site infection and gangrenous changes., 22:18 All other systems are negative, Exam: 22:19 Constitutional: This is a well developed, but ill-appearing male, acutely nauseated, sp4 pale appearing but nontoxic Head/Face: Normocephalic, atraumatic. Eyes: Pupils equal round and reactive to light, extra-ocular motions intact. Lids and lashes normal. Conjunctiva and sclera are not injected. Cornea within normal limits. Periorbital areas with no swelling, redness, or edema. ENT: Nares patent. No nasal discharge, no septal abnormalities noted. Tympanic membranes are normal and external auditory canals are clear. Oropharynx with no redness, swelling, or masses, exudates, or evidence of obstruction, uvula midline. Mucous membranes moist. Neck: Trachea midline, no thyromegaly or masses palpated, and no cervical lymphadenopathy. Supple, full range of motion without nuchal rigidity, or vertebral point tenderness. Chest/axilla: Normal chest wall appearance and motion. Nontender with no deformity. No lesions are appreciated. Cardiovascular: Regular rate and rhythm with a normal S1 and S2. No gallops, murmurs, or rubs. No pulse deficits. Respiratory: Lungs have equal breath sounds bilaterally, clear to auscultation and percussion. No rales, rhonchi or wheezes noted. No increased work of breathing, no retractions or nasal flaring. Abdomen/GI: Soft, with normal bowel sounds. No distension or tympany. No guarding or rebound. No evidence of tenderness throughout. Back: No spinal tenderness. No costovertebral tenderness. Skin: Warm, dry with normal turgor. Normal color with no rashes, no lesions, and no evidence of cellulitis. MS/ Extremity: Pulses equal, no cyanosis. Neurovascular intact. Right foot transmetatarsal amputation site appears to have wet gangrene with malodorous smell Neuro: Awake and alert, GCS 15, oriented to person, place, time, and situation. Cranial nerves II-XII grossly intact. Motor strength 5/5 in all extremities. Sensory grossly intact. Psych: Awake, alert, with orientation to person, place and time. Behavior, mood, and affect are within normal limits Vital Signs: 06:42 BP 187 / 80; Pulse 76; Resp 16; Temp 97.7; Pulse Ox 100% ; Weight 77.11 kg; Height 6 vc1 ft. 2 in. ; Pain 0/10; 06:43 BP 180 / 80; Pulse 69; Resp 18; Pulse Ox 100% on R/A; Pain 0/10; tb4 08:21 BP 173 / 71; Pulse 70; Resp 18; Temp 97.8; Pulse Ox 95% ; hh1 06:42 Body Mass Index 21.83 (77.11 kg, 187.96 cm) vc1 06:42 Pain Scale: Adult vc1 06:43 Pain Scale: Adult tb4 [place] Coma Score: 22:19 Eye Response: spontaneous(4). Motor Response: obeys commands(6). Verbal Response: sp4 oriented(5). Total: 15. MDM: 06:20 Medical Screening Exam initiated sp4 22:20 Differential diagnosis: gastritis, gastroesophageal reflux disease, Hepatitis, sp4 Irritable bowel syndrome, pancreatitis. Data reviewed: vital signs, nurses notes, old medical records. Consideration of Admission/Observation Escalation of care including admission/observation considered. ED course: Nausea has subsided after intramuscular injections. Patient will be prescribed Phenergan as needed nausea. Dressing replaced to the right foot transmetatarsal amputation site. Patient was stable for discharge. Patient advised to go to surgery schedule to be posted for debridement of the right foot by Dr. Love . 01/15 06:41 Order name: PO challenge; Complete Time: 08:22 sp4 01/15 06:55 Order name: Wound Care: Vash dressing ; Complete Time: 07:22 sp4 Administered Medications: 07:22 Drug: Promethazine IM 50 mg IM once Route: IM; Site: left gluteus; tb4 08:23 Follow up: Response: No adverse reaction; Nausea is decreased; Vomiting decreased hh1 07:24 Drug: Zofran IM 8 mg IM once Route: IM; Site: right gluteus; tb4 08:22 Follow up: Response: No adverse reaction; Nausea is decreased; Vomiting decreased hh1 Disposition Summary: 01/15/25 07:55 Discharge Ordered Notes: Location: Home sp4 Problem: new sp4 Symptoms: have improved sp4 Condition: Stable sp4 Diagnosis - Nausea with vomiting, unspecified sp4 Followup: sp4 - With: Ancelmo Love MD - When: Today - Reason: Recheck today's complaints Discharge Instructions: - Discharge Summary Sheet sp4 - Nausea and Vomiting, Adult sp4 Forms: - Patient Portal Instructions sp4 Prescriptions: - promethazine 25 mg Oral tablet - take 1 tablet ORAL route every 6 hours As needed PRN nausea; 30 tablet; sp4 Refills: 0, Product Selection Permitted Signatures: Jacque Gamboa RN RN vc1 Jag Horvath MD MD sp4 Sofiya Claudio RN RN tb4 Hooey, Mary Kay RN hh1
--- NOTE | 2025-01-15 07:55 | ER ---
Nurse's Notes [facility] [place] Name: Zeke Mackay Age: 60 yrs Sex: Male : 1965 Arrival Date: 01/15/2025 Time: 06:12 Bed 20 Private MD: Eagle Zhu Diagnosis: Nausea with vomiting, unspecified Presentation: 01/15 06:42 Chief complaint: Patient states: HAS NAUSEA THAT DID NOT GO AWAY WITH REGLAN. PT STATES vc1 VOMITED IN MOUTH 1 TIME BEFORE TAKING THE REGLAN AT 0430. Coronavirus screen: Client denies travel out of the [place] in the last 14 days. At this time, the client does not indicate any symptoms associated with coronavirus-19. Ebola Screen: Patient negative for fever greater than or equal to 101.5 degrees Fahrenheit, and additional compatible Ebola Virus Disease symptoms Patient denies exposure to infectious person. Patient denies travel to an Ebola-affected area in the 21 days before illness onset. No symptoms or risks identified at this time. Initial Sepsis Screen: Does the patient meet any 2 criteria? No. Patient's initial sepsis screen is negative. Does the patient have a suspected source of infection? No. Patient's initial sepsis screen is negative. Risk Assessment: Do you want to hurt yourself or someone else? Patient reports no desire to harm self or others. Onset of symptoms was January 15, 2025. Care prior to arrival: Medication(s) given: REGLAN 10MG. 06:42 Method Of Arrival: Wheelchair vc1 06:42 Acuity: RICKEY 4 vc1 Triage Assessment: 06:48 General: Appears in no apparent distress. uncomfortable, slender, Behavior is calm, vc1 cooperative, appropriate for age. Pain: Denies pain. EENT: No deficits noted. No signs and/or symptoms were reported regarding the EENT system. Neuro: Level of Consciousness is awake, alert, obeys commands, Oriented to person, place, time, situation, Appropriate for age. Cardiovascular: Capillary refill < 3 seconds Patient's skin is warm and dry. Respiratory: Airway is patent Respiratory effort is even, unlabored, Respiratory pattern is regular, symmetrical. GI: Reports nausea. GI: Abdomen is non-distended. : No deficits noted. No signs and/or symptoms were reported regarding the genitourinary system. Derm: No deficits noted. No signs and/or symptoms reported regarding the dermatologic system. Musculoskeletal: Circulation, motion, and sensation intact. Range of motion: intact in all extremities. 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 - Infectious Disease History:: Denies. - Social history:: Smoking status: Patient denies any tobacco usage or history of. - Family history:: not pertinent. Screenin:46 [facility] ED Fall Risk Assessment (Adult) History of falling in the last 3 months, vc1 including since admission No falls in past 3 months (0 pts) Confusion or Disorientation No (0 pts) Intoxicated or Sedated No (0 pts) Impaired Gait No (0 pts) Mobility Assist Device Used No (0 pt) Altered Elimination No (0 pt) Score/Fall Risk Level 0 - 2 = Low Risk Oriented to surroundings, Maintained a safe environment, Educated pt \T\ family on fall prevention, incl call for assistance when getting out of bed, Assessed \T\ reinforced patient's understanding of fall precautions, Hourly rounding (assess needs \T\ fall precautionary measures) done. Abuse screen: Denies threats or abuse. Nutritional screening: No deficits noted. Tuberculosis screening: No symptoms or risk factors identified. Assessment: 06:55 General: Appears uncomfortable, Behavior is cooperative. Pain: Denies pain. Neuro: tb4 Level of Consciousness is awake, alert, obeys commands, Oriented to person, place, time, situation, [employer] are equal bilaterally Moves all extremities. Full function Gait is steady, Speech is normal, Facial symmetry appears normal. Respiratory: Airway is patent Respiratory effort is even, unlabored, Respiratory pattern is regular, symmetrical. GI: Bowel sounds present X 4 quads. Abd is soft and non tender X 4 quads. Reports nausea. 06:55 GI: Reports vomiting. : No signs and/or symptoms were reported regarding the tb4 genitourinary system. EENT: No signs and/or symptoms were reported regarding the EENT system. Derm: No signs and/or symptoms reported regarding the dermatologic system. Skin is intact, is healthy with good turgor, Skin is dry, Skin is normal. Musculoskeletal: No signs and/or symptoms reported regarding the musculoskeletal system. Circulation, motion, and sensation intact. Range of motion:. Vital Signs: 06:42 BP 187 / 80; Pulse 76; Resp 16; Temp 97.7; Pulse Ox 100% ; Weight 77.11 kg; Height 6 vc1 ft. 2 in. ; Pain 0/10; 06:43 BP 180 / 80; Pulse 69; Resp 18; Pulse Ox 100% on R/A; Pain 0/10; tb4 08:21 BP 173 / 71; Pulse 70; Resp 18; Temp 97.8; Pulse Ox 95% ; hh1 06:42 Body Mass Index 21.83 (77.11 kg, 187.96 cm) vc1 06:42 Pain Scale: Adult vc1 06:43 Pain Scale: Adult tb4 [place] Coma Score: 22:19 Eye Response: spontaneous(4). Motor Response: obeys commands(6). Verbal Response: sp4 oriented(5). Total: 15. ED Course: 06:13 Patient arrived in ED. jj6 06:14 Eagle Zhu DO is Private Physician. jj6 06:14 Jag Horvath MD is Attending Physician. sp4 06:43 No provider procedures requiring assistance completed. tb4 06:45 Triage completed. vc1 06:46 Arm band placed on right wrist. vc1 06:46 Patient has correct armband on for positive identification. Bed in low position. Call vc1 light in reach. Provided Education on: PLAN OF CARE. Pulse ox on. NIBP on. 07:33 Mary Kay Patel, ARTURO is Primary Nurse. hh1 07:54 Ancelmo Love MD is Referral Physician. sp4 08:23 Patient transferred, IV remains in place. hh1 Administered Medications: 07:22 Drug: Promethazine IM 50 mg IM once Route: IM; Site: left gluteus; tb4 08:23 Follow up: Response: No adverse reaction; Nausea is decreased; Vomiting decreased 1 07:24 Drug: Zofran IM 8 mg IM once Route: IM; Site: right gluteus; tb4 08:22 Follow up: Response: No adverse reaction; Nausea is decreased; Vomiting decreased [facility] Medication: 06:47 VIS not applicable for this client. 1 Outcome: 07:55 Discharge ordered by MD. sultana 08:23 Patient left the ED. [facility] 08:23 Transferred by helicopter to [facility], [facility], to other acute care [facility] facility: [facility]. 08:23 Condition: stable 08:23 Following a medical screening exam, the patient was provided information regarding alternative care sites and resources available per registration personnel. Signatures: Adriana Christie jj6 Jacque Gamboa RN RN vc1 Jag Horvath MD MD sp4 Sofiya Claudio RN RN tb4 Mary Kay Patel RN RN 1
[2025-01-15 09:00] VITALS: BP 173/71; TEMP 97.8; O2SAT 95
== END 2025-01-15 08:23 | disposition home or self-care (01) ==
LOC: ER 06:12
DX: R11.2 Nausea with vomiting, unspecified (principal); Z89.421 Acquired absence of other right toe(s); Z85.028 Personal history of other malignant neoplasm of stomach
CPT/HCPCS: 96372; 99285; J2550; J2405

== ENCOUNTER 2025-02-03 05:21 | Emergency (ER) | payer OTHER, BC ==
--- OUTSIDE RECORDS SUMMARY | 2025-02-03 05:30 | XMS REPORT | Clinical Summary ---
Author Name Unknown Organization [facility] Address [address] [place] [address] Care Team Providers Care Field Training Manager Name Role Phone Margoth Souza MD Primary Care Provider [phone] Mary Jane Cassidy MD Unavailable [phone] Barry He MD Unavailable Patience Hunt MD Unavailable Eagle Zhu DO Unavailable [phone] Marianela Hutchinson MD Unavailable [phone] Margoth Souza MD Unavailable Ceci Nicholson MD Unavailable [phone] Marianela Hutchinson MD Primary Care Provider [phone] Sigifredo Davenport MD Unavailable Abilio Ng-C Unavailable [phone] Shira Segovia MD Unavailable Ancelmo Love MD Unavailable [phone] Allergies Active Allergy Reactions Criticality Noted Date Comments Doxycycline GI Intolerance High 11/16/2024 Discovered after first prescription on 10/31/24 Levofloxacin GI Intolerance High 11/16/2024 Discovered after first prescription on 10/30/24 Medications insulin glargine-lixisena tide (Soliqua 100/33) 100 unit-33 mcg/mL inpn Inject 15 Units/day under the skin daily. Active methocarbamol (ROBAXIN) 500 mg tabletIndications :Renal mass Take 1 tablet (500 mg) by mouth every 8 (eight) hours as needed for muscle spasms. 20 tablet 01/03/20 24 1:52 PM CDT Active Additional Information Patient not taking.Reason: No longer taking, Reported on 12/18/2024 aspirin 81 mg chewable tablet Chew and swallow 1 tablet (81 mg) by mouth daily. Active atorvastatin (LIPITOR) 40 mg tablet [...] suspension BEFORE MEALS AND AT BEDTIME Active ondansetron (Zofran) 8 mg tabletIndications :Adenocarcinoma of stomach Take 1 tablet (8 mg) by mouth every 8 (eight) hours as needed for nausea or vomiting. 30 tablet 2 Active loperamide (Imodium A-D) 1 mg/7.5 mL solutionIndicatio ns:Diarrhea Take 15 mL (2 mg) by mouth 4 (four) times a day as needed for diarrhea. 480 mL 2 Active Additional Information Patient not taking.Reason: No longer taking, Reported on 12/18/2024 mupirocin (BACTROBAN) 2% ointmentIndicatio ns: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 mellitus Apply topically to affected area(s) twice daily. 22 g 1 025 Active Additional Information Patient not taking.Reason: No longer taking, Reported on 12/18/2024 doxycycline (ADOXA) 100 MG tablet Take 1 tablet (100 mg) by mouth twice daily. Active metoclopramide (REGLAN) 10 mg tabletIndications :Adenocarcinoma of stomach,Nausea with vomiting Take 1 tablet (10 mg) by mouth 3 (three) times a day before meals. 90 tablet 1 02/01/20 25 10:49 AM CDT Active ondansetron (ZOFRAN-ODT) 8 mg disintegrating tabletIndications :Adenocarcinoma of stomach,Nausea with vomiting Dissolve 1 tablet (8 mg) on the tongue every 8 (eight) hours as needed for nausea or vomiting. 30 tablet 2 02/01/20 25 10:49 AM CDT 025 Active OLANZapine (ZyPREXA) 2.5 mg tabletIndications :Adenocarcinoma of stomach TAKE 1 TABLET BY MOUTH AT BEDTIME 30 tablet 1 Active metoprolol tartrate (LOPRESSOR) 25 mg tabletIndications :Hypertension Take 1 tablet (25 mg) by mouth twice daily. 60 tablet 02/01/20 25 10:49 AM CDT Active dapagliflozin propanediol (Farxiga) 10 mg tablet Take 1 tablet (10 mg) by mouth daily. 2023 Discontinued metFORMIN (GLUCOPHAGE) 500 mg tablet Take 2 tablets (1,000 mg) by mouth 2 (two) times a day with meals. 2024 Discontinued traMADol (ULTRAM) 50 mg tabletIndications :Renal mass Take 1 tablet (50 mg) by mouth every 4 (four) hours as needed for moderate pain or severe pain. 20 tablet 01/03/20 24 1:52 PM CDT 024 2023 Discontinued(S top Taking at Discharge) metoprolol tartrate (LOPRESSOR) 25 mg tablet Take 1 tablet (25 mg) by mouth twice daily. 024 2024 Discontinued(R eorder) prochlorperazine (Compazine) 10 mg tabletIndications :Adenocarcinoma of stomach Take 1 tablet (10 mg) by mouth every 6 (six) hours as needed for nausea or vomiting. 30 tablet 2 024 2024 Discontinued metoclopramide (Reglan) 5 mg tabletIndications :Adenocarcinoma, NOS of stomach, NOS,Nausea Take 1 tablet (5 mg) by mouth 4 (four) times a day before meals and nightly for 28 days. 56 tablet 1 024 2023 Discontinued oxyCODONE (ROXICODONE) 5 mg/5 mL solutionIndicatio ns:Adenocarcinoma of stomach Take 5 mL (5 mg) by mouth every 6 (six) hours as needed for moderate pain or severe pain (pain not relieved by Tylenol). 60 mL 04/15/20 24 3:43 PM PREVENTIVE MEDICINE PHYSICIAN 024 2024 Discontinued amLODIPine (NORVASC) 5 mg tablet DAILY 2024 Discontinued(R eorder) OLANZapine (ZyPREXA) 2.5 mg tabletIndications :Adenocarcinoma of stomach Take 1 tablet (2.5 mg) by mouth at bedtime. 30 tablet 1 024 2024 Discontinued(R eorder) promethazine (PHENERGAN) 25 mg tabletIndications :Adenocarcinoma of stomach Take 1 tablet (25 mg) by mouth every 6 (six) hours as needed for nausea or vomiting. 60 tablet 2 024 2024 Discontinued(R eorder) ondansetron (Zofran) 8 mg tabletIndications :Adenocarcinoma of stomach Take 1 tablet (8 mg) by mouth every 8 (eight) hours as needed for nausea or vomiting. 30 tablet 2 024 2024 Discontinued(R eorder) fluconazole (Diflucan) 40 mg/mL suspensionIndicat ions:Candidal esophagitis Take 10 mL (400 mg) by mouth daily for 1 day, THEN 5 mL (200 mg) daily for 13 days. 75 mL 025 2024 promethazine (PHENERGAN) 25 mg tabletIndications :Adenocarcinoma of stomach Take 1 tablet (25 mg) by mouth every 6 (six) hours as needed for nausea or vomiting. 60 tablet 2 025 2024 Discontinued(R eorder) ondansetron (Zofran) 8 mg tabletIndications :Adenocarcinoma of stomach Take 1 tablet (8 mg) by mouth every 8 (eight) hours as needed for nausea or vomiting. 30 tablet 2 025 2024 Discontinued(R eorder) OLANZapine (ZyPREXA) 2.5 mg tabletIndications :Adenocarcinoma of stomach Take 1 tablet (2.5 mg) by mouth at bedtime. 30 tablet 1 025 2024 Discontinued promethazine (PHENERGAN) 25 mg tabletIndications :Adenocarcinoma of stomach Take 1 tablet (25 mg) by mouth every 6 (six) hours as needed for nausea or vomiting. 60 tablet 2 025 2024 Discontinued amLODIPine (NORVASC) 5 mg tabletIndications :Hypertensive crisis Take 2 tablets (10 mg) by mouth daily for 30 days. Hold for Systolc Blood Pressure less than 100 mmHg, Heart Rate less than 60 bpm. 60 tablet 025 2024 sodium zirconium cyclosilicate (Lokelma) 5 gram packetIndications :Hyperkalemia Take 1 packet (5 g) by mouth once for 1 dose. Mix the entire content of the packet(s) with approximately 3 tablespoon (45 mL) of water, stir well and drink immediately as directed. 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 Take with levofloxacin/Le vaquin 14 capsule 025 2024 Discontinued(A llergic response) [...] Encounters Date Type Department Care Team Description 02/02/2025 Orders Only [facility] [address] [place] [address] Main [facility], 7th [place] [address] Marianela Hutchinson MD 02/02/2025 Orders Only [facility] [address] [place] [address] Main dg, 7th [place] [address] Gillian Gomez PA-C Adenocarcinoma of stomach (Primary Dx) 01/31/2025 9:48 AM CDT - 01/31/2025 11:59 PM CDT Hospital Encounter Ambulatory Treatment Center - Main Building [address] [facility] Main [facility], 2nd Floor, [place] [address] Marianela Hutchinson MD Avila, Ivy Camille R, RN Adenocarcinoma of stomach (Primary Dx) Discharge Disposition: Home 01/31/2025 Orders Only [facility] [address] [facility] Main [facility], 7th [place] [address] Radha Sparks MD Hypertension (Primary Dx) 01/29/2025 9:30 AM CDT Infusion MD [facility] [address] [place] [address] Marianela Hutchinson MD Philipose, Glory J, RN Adenocarcinoma of stomach (Primary Dx) 01/29/2025 8:45 AM CDT Ancillary Procedure MD [facility] [address] [facility] 2nd [place] [address] Margoth Souza MD Renal mass 01/29/2025 Travel 01/28/2025 Telephone [facility]ocrine Center [address] [place] [address] Main [facility], 6th [place] [address] Veronica Del Castillo, FRANK 01/28/2025 Refill [facility] [address] [place] [address] Main [facility], 7th [place] [address] Marianela Hutchinson MD Adenocarcinoma of stomach 01/26/2025 Orders Only [facility] [address] [place] [address], 11th [place] [address] Radha Castellon RPH Adenocarcinoma of stomach (Primary Dx) 01/26/2025 Orders Only [facility] [address] [place] [address], 7th [place] [address] Gillian Gomez PA-C 01/25/2025 4:00 PM CDT Telemedicine [facility] [address] [place] [address], 7th [place] [address] Marianela Hutchinson MD Adenocarcinoma of stomach (Primary Dx) 01/25/2025 Orders Only [facility] [address] [place] [address], 7th [place] [address] Radha Castellon RPH Adenocarcinoma of stomach (Primary Dx); Hypertension; Nausea with vomiting 01/22/2025 7:58 AM CDT - 01/22/2025 11:59 PM CDT Hospital Encounter [facility] [address] [place] [address], 3rd [place] [address] Gillian Gomez PA-C Adenocarcinoma of stomach Discharge Disposition: Home 01/22/2025 7:36 AM CDT - 01/22/2025 7:57 AM CDT Hospital Encounter Diagnostic [facility] [address] [place] [address] Marianela Hutchinson MD 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; Endocrine/metabolic screening; Iron deficiency anemia, not otherwise specified; Adenocarcinoma of stomach Discharge Disposition: Home 01/05/2025 12:30 PM CDT Telemedicine Endocrine Center [address] [place] [address], 6th Floor Elevator [place] [phone] Mary Jane Cassidy MD 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); Endocrine/metabolic screening 12/18/2024 11:00 AM CDT Follow-Up Internal Medicine Center [address] [place] [address], [address]th [place] [address] Shira Segovia MD Adenocarcinoma of stomach (Primary Dx); Hypertension; 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 mellitus; Paroxysmal atrial fibrillation 12/18/2024 Travel 12/15/2024 Orders Only [facility] [address] [place] [address], 7th [place] [address] Gillian Gomez PA-C Adenocarcinoma of stomach (Primary Dx) 12/01/2024 Orders Only [facility] [address] [place] [address], [address] [place] [address] Gillian Gomez PA-C Adenocarcinoma of stomach (Primary Dx) 11/13/2024 1:15 PM CDT - 11/13/2024 11:59 PM CDT Hospital Encounter [facility] [address] [place] [address] Gillian Gomez PA-C Adenocarcinoma of stomach; Hyperkalemia; Hyponatremia Discharge Disposition: Home 11/13/2024 1:00 PM CDT Ancillary Procedure [facility] [address] [place] [address], [address] [place], [place] [address] [address] Shira Segovia MD 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 mellitus 11/05/2024 Orders Only [facility] [address] [place] [address], [address] [place] [address] [place] [address] Radha Castellon, [facility] 11/04/2024 Orders Only [facility] [address] [place] [address], 7th [place] [address] Gillian Gomez PA-C 11/04/2024 Telephone [facility] [address] [place] [address], 7th [place] [address] Gabrielle Arias RN 11/02/2024 Orders Only [facility] [address] [place] [address], 7th [place] [address] Radha Castellon, [facility] 11/01/2024 6:00 PM CDT - 11/01/2024 11:59 PM CDT Hospital Encounter Ambulatory Treatment [facility] - [facility] Building [address] [place] [address], 2nd Floor, [place] [address] Gillian Gomez PA-C Balason, Adda Rica F RN Adenocarcinoma of stomach (Primary Dx) Discharge Disposition: Home 10/30/2024 2:00 PM CDT Infusion [facility] [address] [facility], 8th [place] [address] Gillian Gomez PA-C Baidon, Mario B RN Adenocarcinoma of stomach (Primary Dx); Iron deficiency anemia, not otherwise specified 10/30/2024 1:00 PM CDT Consult Internal Medicine Center [address] [place] [address], 9th [place] [address] Shira Segovia MD Hypertension (Primary Dx); Hypertensive [...] PM CDT Hospital Encounter [facility] [address] [place] [address] Marianela Hutchinson MD Adenocarcinoma of stomach Discharge Disposition: Home 10/30/2024 Orders Only [facility] [address] [place] [address], 7th [place] [address] Marianela Hutchinson MD 10/30/2024 Travel 10/30/2024 Telephone Internal Medicine Center [address] [place] [address], 9th [place] [address] Shira Segovia MD 10/30/2024 Orders Only [facility] [address] [place] [address], 7th Floor Elevator [place] [phone] Gillian Gomez PA-C Iron deficiency anemia, not otherwise specified (Primary Dx); Adenocarcinoma of stomach 10/29/2024 Orders Only [facility] [address] [place] [address], 7th [place] [address] Gillian Gomez PA-C Adenocarcinoma of stomach (Primary Dx) 10/29/2024 Telephone Case Management [address] [place] [address] Yani Salamanca 10/28/2024 2:18 PM CDT - 10/29/2024 1:00 PM CDT Hospital Encounter [facility] [address] [place] [address], 1st [place] [address] Otf Glaser MD Gandhi, Ayush, MD Sandoval, Marcelo A., MD Hypertensive crisis (Primary Dx); Hyperkalemia; Intractable nausea and vomiting; Renal cell carcinoma <Left side>; Type 2 diabetes mellitus with hyperglycemia; Atherosclerosis of coronary artery bypass graft without angina pectoris Discharge Disposition: Home 10/28/2024 10:54 AM CDT - 10/28/2024 2:17 PM CDT Hospital Encounter Diagnostic Laboratory Center [facility] [place] [address] Marianela Hutchinson MD Adenocarcinoma of stomach Discharge Disposition: Home 10/28/2024 10:45 AM CDT Infusion [facility] - [facility] [address] [facility], 8th [place] [address] Marianela Hutchinson MD Moreno Escobar, Cristian, ARTURO Adenocarcinoma of stomach 10/28/2024 9:45 AM CDT - 10/28/2024 10:53 AM CDT Hospital Encounter Cardiopulmonary Center [address] [facility] Main dg, 6th [place] [address] Marianela Hutchinson MD Discharge Disposition: Home 10/28/2024 Travel 10/28/2024 Orders Only [facility] Main [facility], 7th [place] [address] Molly Otto, [facility] 10/27/2024 Orders Only [facility] [address] [place] [address] Main [facility], 7th [place] [address] Marianela Hutchinson MD 10/27/2024 Orders Only [facility] Main [facility], 7th [place] [address] Gillian Gomez PA-C Adenocarcinoma of stomach (Primary Dx) 10/27/2024 Telephone [facility] [address] [facility] Main [facility], 7th [place] [address] Gabrielle Arias, ARTURO 10/26/2024 12:20 PM CDT Follow-Up [facility] Main [facility], 7th [place] [address] Marianela Hutchinson MD Adenocarcinoma of stomach (Primary Dx) 10/26/2024 Orders Only Colorectal Center - Medical Oncology [facility] Main [facility], 7th [place] [address] Daivd Alejandre MD 10/26/2024 Travel 10/25/2024 8:03 AM CDT - 10/25/2024 5:51 PM CDT Emergency Acute Cancer Care [facility], 1st [place] [address] Mohan Torres MD Nausea (Primary Dx); Hypertension; Gastro-esophageal reflux disease without esophagitis; Adenocarcinoma of stomach; Renal mass; Paroxysmal atrial fibrillation Discharge Disposition: Home 10/25/2024 7:00 AM CDT - 10/25/2024 7:19 AM CDT Hospital Encounter Diagnostic Laboratory Center [address] [place], [place] [phone] Marianela Hutchinson MD Adenocarcinoma of stomach Discharge Disposition: Home 10/07/2024 4:30 PM CDT Infusion Ambulatory Treatment [facility] - [facility] [address] [place] [address], 8th Floor Elevator [place] [phone] Marianela Hutchinson MD Gumban, Connie Y, RN Adenocarcinoma of stomach (Primary Dx) 10/07/2024 Travel 10/05/2024 1:45 PM CDT Infusion [facility] [place] [facility] [address] [facility], 8th [place] [address] Marianela Hutchinson MD Olipas, Donnamarie G, RN Adenocarcinoma of stomach (Primary Dx); Iron deficiency anemia, not otherwise specified 10/05/2024 10:48 AM CDT - 10/05/2024 11:59 PM CDT Hospital Encounter Diagnostic [facility] [address] [place] [address] Marianela Hutchinson MD Adenocarcinoma of stomach Discharge Disposition: Home 10/05/2024 Travel 10/02/2024 Orders Only [facility] [address] [place] [address], 7th [place] [address] Gillian Gomez PA-C 09/25/2024 Telephone [facility] PHYSICIAN [address] [place] [address] Jane Sanchez, disease intervention specialist Call 09/23/2024 8:56 PM CDT - 09/23/2024 11:34 PM CDT Emergency [facility] [address] [place] [address], 1st [place] [address] Otf Glaser MD Encounter for adjustment and management of vascular access device (Primary Dx); Hypertension Discharge Disposition: Home 09/23/2024 6:50 PM CDT Infusion [facility] [address] [place] [address], 8th [place] [address] Marianela Hutchinson MD Rocafort, Roy G, RN Adenocarcinoma of stomach (Primary Dx) 09/21/2024 4:30 PM CDT Infusion [address], 8th [place] [address] Marianela Hutchinson MD Joseph, Divya, RN Adenocarcinoma of stomach (Primary Dx); Iron deficiency anemia, not otherwise specified 09/21/2024 2:20 PM CDT Follow-Up [facility] [address] [place] [address] Marianela Hutchinson MD Adenocarcinoma of stomach 09/21/2024 12:48 PM CDT - 09/21/2024 11:59 PM CDT Hospital Encounter [facility] [address] [place] [address] Marianela Hutchinson MD Adenocarcinoma of stomach Discharge Disposition: Home 09/21/2024 Orders Only [facility] [address] [place] [address] Marianela Hutchinson MD Adenocarcinoma of stomach (Primary Dx) 09/21/2024 Orders Only [facility] [address] [place] [address] Radha Castellon, [facility] Adenocarcinoma of stomach (Primary Dx); Diarrhea 09/21/2024 Travel 09/21/2024 Orders Only Ambulatory Treatment [address], 8th [place] [address] Marianela Hutchinson MD Adenocarcinoma of stomach (Primary Dx) 09/09/2024 6:30 PM CDT Infusion Ambulatory Treatment Center - [facility] [address] [facility], 8th [place] [address] Marianela Hutchinson MD Balason, Adda Rica F RN Adenocarcinoma of stomach (Primary Dx) 09/09/2024 Travel 09/07/2024 4:30 PM CDT Infusion Amb[facility] Treatment [place] - [facility] [address] [place] [address], 8th [place] [address] Marianela Hutchinson MD Castillo, Emmanuel, RN Adenocarcinoma of stomach (Primary Dx); Iron deficiency anemia, not otherwise specified 09/07/2024 1:00 PM CDT Follow-Up [facility] [address] [place] [address], 7th [place] [address] Marianela Hutchinson MD Adenocarcinoma of stomach (Primary Dx) 09/07/2024 10:41 AM CDT - 09/07/2024 11:59 PM CDT Hospital Encounter [facility] [address] [place] [address] Marianela Hutchinson MD Adenocarcinoma of stomach Discharge Disposition: Home 09/07/2024 Orders Only [facility] [address] [place] [address], 7th [place] [address] Marianela Hutchinson MD Adenocarcinoma of stomach (Primary Dx) 09/07/2024 Orders Only [facility] [address] [place] [address], 7th [place] [address] Radha Castellon [facility] Adenocarcinoma of stomach (Primary Dx); Iron deficiency anemia, not otherwise specified 09/07/2024 Travel 08/26/2024 7:41 PM CDT - 08/26/2024 11:59 PM CDT Hospital Encounter Ambulatory Treatment Center - [address], 2nd Floor, [place] [address] Marianela Hutchinson MD Le, Lam, RN Adenocarcinoma of stomach (Primary Dx) Discharge Disposition: Home 08/24/2024 1:40 PM CDT Follow-Up [facility] [address] [place] [address], 7th [place] [address] Marianela Hutchinson MD Adenocarcinoma of stomach 08/24/2024 12:42 PM CDT - 08/24/2024 11:59 PM CDT Hospital Encounter Ambulatory Treatment Center - Main Building [address] [place] [address], 2nd Floor, [place] [address] Gillian Gomez PA-C Harrison, Kishanda S, RN Adenocarcinoma of stomach (Primary Dx) Discharge Disposition: Home 08/24/2024 11:16 AM CDT - 08/24/2024 12:41 PM CDT Hospital Encounter [facility] [address] [place] [address] Gillian Gomez PA-C Adenocarcinoma of stomach Discharge Disposition: Home 08/24/2024 Orders Only [facility] [address] [place] [address], 7th [place] [address] Marianela Hutchinson MD Adenocarcinoma of stomach (Primary Dx) 08/24/2024 Telephone [facility] [address] [place] [address], 7th [place] [address] Mony Saavedra RN 08/24/2024 Orders Only [facility] [address] [place] [address], 7th [place] [address] Radha Castellon [facility] Adenocarcinoma of stomach (Primary Dx) 08/24/2024 Travel 08/24/2024 Orders Only Ambulatory Treatment Center - Main Building [address] [place] [address], 2nd Floor, [place] [address] Marianela Hutchinson MD Adenocarcinoma of stomach (Primary Dx) 08/21/2024 Telephone [facility] [address] [place] [address], 7th [place] [address] Milagros Rogers RN 08/17/2024 Orders Only [facility] [address] [place] [address], 7th [place] [address] Gillian Gomez PA-C Adenocarcinoma of stomach (Primary Dx) 08/06/2024 Orders Only [facility] [address] [place] [address], 7th [place] [address] Radha Castellon [facility] 07/22/2024 Orders Only Ambulatory Treatment Center - [facility] [address] [facility], 8th [place] [address] Marianela Hutchinson MD Adenocarcinoma of stomach (Primary Dx) 07/21/2024 Telephone Ambulatory Treatment Center - [facility] [address] [facility], 8th [place] [address] Rosanna Álvarez RN Chemotherapy Teaching 07/16/2024 2:40 PM PREVENTIVE MEDICINE PHYSICIAN Follow-Up Gastro[facility] Center [address] [place] [address], [address] [place] [address] [place] [address] Marianela Hutchinson MD Adenocarcinoma of stomach (Primary Dx) 07/16/2024 Orders Only [facility] [address] [place] [address], [address] [place], [place] [address] [address] Marianela Hutchinson MD Adenocarcinoma of stomach (Primary Dx) 07/16/2024 Orders Only [facility] [address] [place] [address], [address] [place], [place] [address] [address] Radha Castellon, [facility] Adenocarcinoma of stomach (Primary Dx) 07/16/2024 Travel 07/15/2024 10:08 AM PREVENTIVE MEDICINE PHYSICIAN - 07/15/2024 11:59 PM PREVENTIVE MEDICINE PHYSICIAN Hospital Encounter [facility] [address] [place] [address], 3rd [place] [address] Mary Kay Santamaria APRN Adenocarcinoma of stomach Discharge Disposition: Home 07/15/2024 9:49 AM PREVENTIVE MEDICINE PHYSICIAN - 07/15/2024 10:07 AM PREVENTIVE MEDICINE PHYSICIAN Hospital Encounter [facility] [address] [place] [address] Mary Kay Santamaria, MARKETING OPERATIONS INTERN Adenocarcinoma of stomach Discharge Disposition: Home 07/07/2024 Orders Only [facility] Main [address]ldg, 7th [place] [address] Gillian Gomez PA-C Adenocarcinoma of stomach (Primary Dx) 07/06/2024 Telephone [facility] Main Bldg, 7th [place] [address] Mary Kay Santamaria, MARKETING OPERATIONS INTERN 07/06/2024 Orders Only [facility] Main Bldg, 7th [place] [address] Mary Kay Santamaria, MARKETING OPERATIONS INTERN 07/06/2024 Orders Only [facility] [address] [place], [place] [address]vd Main Bldg, 7th [place] [address] Gillian Gomez PA-C Adenocarcinoma of stomach (Primary Dx) 07/06/2024 Multidisciplinary Visit [facility] [address] [place] [address] Main Bldg, 7th [place] [address] Gillian Gomez PA-C 07/06/2024 Orders Only [facility] [address] [place], [place] [address]vd Main Bldg, 7th [place] [address] Donnell Van Adenocarcinoma of stomach (Primary Dx) 07/02/2024 11:00 AM PREVENTIVE MEDICINE PHYSICIAN Nutrition Clinical Nutrition For your Nutrition appointment location directions please call: Marianela Hutchinson MD Munder, Kathryn, SCOTT Left without seen 07/02/2024 10:30 AM PREVENTIVE MEDICINE PHYSICIAN Follow-Up [facility] Main Bldg, 7th [place] [address] John Fong MD Adenocarcinoma of stomach 07/02/2024 Documentation [facility] Main Bldg, 7th [place] [address] John Fong MD 06/30/2024 3:33 PM PREVENTIVE MEDICINE PHYSICIAN Anesthesia Event Perioperative Evaluation [facility] Management Center [address] [place] [address] Main [facility], 6th [place] [address] Lien Antonio RN 06/30/2024 12:25 PM PREVENTIVE MEDICINE PHYSICIAN Anesthesia Event [facility] [address] [place] [address] Main [facility], 5th [place] [address] Susana Kelly MD 06/30/2024 12:00 PM PREVENTIVE MEDICINE PHYSICIAN - 06/30/2024 12:45 PM PREVENTIVE MEDICINE PHYSICIAN Surgery [facility] [address] [place] [address], 5th Floor Elevator C [place] [phone] Brandon Alcala MD DIAGNOSTIC UPPER GASTROINTESTINAL ENDOSCOPY 06/30/2024 10:15 AM PREVENTIVE MEDICINE PHYSICIAN - 06/30/2024 2:24 PM PREVENTIVE MEDICINE PHYSICIAN Hospital Encounter [facility] [address] [place] [address], 5th [place] [address] Brandon Alcala MD Adenocarcinoma of stomach Discharge Disposition: Home 06/30/2024 Travel 06/29/2024 9:00 AM PREVENTIVE MEDICINE PHYSICIAN Consult Perioperative Evaluation and Management [address] [place] [address], [facility] [place] [address] Mary Kay Santamaria APRN Vu, Khanh D, MD Encounter for preprocedural cardiovascular examination (Primary Dx); Coronary arteriosclerosis, not otherwise specified; Cardiomyopathy, not otherwise specified; Hypertension; nursing home current use of 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; Type 2 diabetes mellitus with hyperglycemia; Dyslipidemia; Hyponatremia; Hyperkalemia; Adenocarcinoma of stomach; Paroxysmal atrial fibrillation; Hyperlipidemia, not otherwise specified 06/29/2024 8:00 AM PREVENTIVE MEDICINE PHYSICIAN POEM Appointments [facility] [address] [place] [address], 6th [place] [address] Marianela Hutchinson MD 06/29/2024 7:30 AM PREVENTIVE MEDICINE PHYSICIAN - 06/29/2024 11:59 PM PREVENTIVE MEDICINE PHYSICIAN Hospital Encounter [facility] [address] [place] [address] Main [facility], 2nd [place] [address] Mary Kay Santamaria, FRANK Adenocarcinoma of stomach Discharge Disposition: Home 06/29/2024 Travel 06/23/2024 Documentation [facility] [address] [place] [address], 7th [place] [address] Mony Saavedra RN 06/22/2024 12:20 PM PREVENTIVE MEDICINE PHYSICIAN [facility]-Up [facility] [address] [place] [address], [address] [place] [address] [place] [address] Marianela Hutchinson MD Adenocarcinoma, NOS of stomach, NOS 06/22/2024 Orders Only [facility] [address] [place] [address], [address] [place], [place] [address] [address] Radha Castellon [facility] 06/22/2024 Travel 06/20/2024 10:45 AM PREVENTIVE MEDICINE PHYSICIAN - 06/20/2024 11:59 PM PREVENTIVE MEDICINE PHYSICIAN Hospital Encounter [facility] [address] [place] [address], 3rd [place] [address] Adenocarcinoma, NOS of stomach, NOS; Malignant neoplasm of overlapping sites of esophagus Discharge Disposition: Home 06/20/2024 10:08 AM PREVENTIVE MEDICINE PHYSICIAN - 06/20/2024 10:44 AM PREVENTIVE MEDICINE PHYSICIAN Hospital Encounter [facility] [address] [place] [address] Gillian Gomez PA-C Adenocarcinoma, NOS of stomach, NOS Discharge Disposition: Home 06/16/2024 Telephone [facility] [address] [place] [address], [facility] Floor Elevator [place] [phone] Mary Kay Santamaria, MARKETING OPERATIONS INTERN 06/15/2024 1:30 PM PREVENTIVE MEDICINE PHYSICIAN [facility] - Blue [address] [facility], 8th [place] [address] Marianela Hutchinson MD [facility], Jorge Tyson RN Adenocarcinoma of stomach (Primary Dx); Iron deficiency anemia, not otherwise specified 06/15/2024 12:40 PM PREVENTIVE MEDICINE PHYSICIAN [facility]Up [facility] [address] [place] [address] Main [facility], 7th [place] [address] Marianela Hutchinson MD Adenocarcinoma, NOS of stomach, NOS; Malignant neoplasm of overlapping sites of esophagus 06/15/2024 10:24 AM PREVENTIVE MEDICINE PHYSICIAN - 06/15/2024 11:59 PM PREVENTIVE MEDICINE PHYSICIAN Hospital Encounter [facility] [address] [place] [address] Marianela Hutchinson MD Adenocarcinoma of stomach; Adenocarcinoma, NOS of stomach, NOS Discharge Disposition: Home 06/15/2024 Orders Only [facility] [address] [place] [address], [facility] [place] [address] Radha Castellon, [facility] Adenocarcinoma of stomach (Primary Dx) 06/15/2024 Orders Only [facility] [address] [place] [address], [address] [place] [address] [place] [address] Gillian Goemz PA-C 06/15/2024 Travel 06/15/2024 Telephone [facility] - Gastroenterology , Hepatology & Nutrition [address] [place] [address], [address] [place] [address] [place] [address] Arnaldo Araujo PA-C 06/15/2024 Multidisciplinary Visit [facility] [address] [place] [address], [facility] [place] [address] Lakeshia Pablo PA 06/15/2024 Orders Only [facility] [address] [place] [address], [address] [place], [place] [address] [address] Marianela Hutchinson MD Adenocarcinoma of stomach (Primary Dx) 06/12/2024 Prep for Surgery [facility] - Gastroenterology , Hepatology & Nutrition [address] [place] [address], [facility] [place] [address] Arnaldo Araujo PA-C Adenocarcinoma of stomach (Primary Dx) 06/12/2024 Telephone [facility] Oncology [address] [place] [address], [facility] Floor [facility] [place] [address] Mary Kay Santamaria APRN 06/12/2024 Orders Only [facility] [address] [place] [address], 7th [place] [address] Mary Kay Santamaria APRN Adenocarcinoma of stomach (Primary Dx) 06/10/2024 Orders Only [facility] [address] [place] [address], 7th [place] [address] Mary Kay Santamaria APRN Adenocarcinoma of stomach (Primary Dx) 06/05/2024 Telephone [facility] - Gastroenterology , Hepatology & Nutrition [address] [place] [address], 7th [place] [address] Arnaldo Araujo PA-C 06/03/2024 5:30 PM PREVENTIVE MEDICINE PHYSICIAN [facility] [address] [facility], 8th [place] [address] Marianela Hutchinson MD Lewandowski, Teresa M RN Adenocarcinoma of stomach (Primary Dx) 06/03/2024 Travel 06/02/2024 Telephone [facility] [address] [place] [address], 7th [place] [address] Mony Saavedra RN 06/01/2024 1:00 PM PREVENTIVE MEDICINE PHYSICIAN Infusion [facility] [address] [facility], Floor 6 [place] [address] Marianela Hutchinson MD Shaik, Anna Marie B RN Adenocarcinoma of stomach (Primary Dx); Iron deficiency anemia, not otherwise specified 06/01/2024 10:53 AM PREVENTIVE MEDICINE PHYSICIAN - 06/01/2024 11:59 PM PREVENTIVE MEDICINE PHYSICIAN Hospital Encounter [facility] [address] [place] [address] Marianela Hutchinson MD Adenocarcinoma of stomach; Iron deficiency anemia, not otherwise specified Discharge Disposition: Home 06/01/2024 Orders Only [facility] [address] [place] [address], 7th [place] [address] Marianela Hutchinson MD 06/01/2024 Orders Only [facility] Main [facility], 7th [place] [address] Radha Castellon, [facility] Adenocarcinoma of stomach (Primary Dx); Iron deficiency anemia, not otherwise specified 06/01/2024 Travel 06/01/2024 Orders Only [facility] - Ambulatory Treatment Center [address] [facility], Floor 6 [place] [address] Marianela Hutchinson MD Adenocarcinoma of stomach (Primary Dx) 05/26/2024 Telephone [facility] - Gastroenterology , Hepatology & Nutrition [facility] Main [facility], 7th [place] [address] Arnaldo Araujo PA-C 05/22/2024 Telephone [facility] - Gastroenterology , Hepatology & Nutrition [address] [place] [address], 7th [place] [address] Arnaldo Araujo PA-C 05/22/2024 Orders Only [facility] - Gastroenterology , Hepatology & Nutrition [facility], 7th [place] [address] Arnaldo Araujo PA-C Candidal esophagitis (Primary Dx) 05/20/2024 4:30 PM PREVENTIVE MEDICINE PHYSICIAN - 05/20/2024 11:59 PM PREVENTIVE MEDICINE PHYSICIAN Hospital Encounter Ambulatory Treatment [place] - Main Building [address] [facility] Main [facility], 2nd Floor, [place] [address] Marianela Hutchinson MD Lewandowski, Teresa M, RN Adenocarcinoma of stomach Discharge Disposition: Home 05/19/2024 12:44 PM PREVENTIVE MEDICINE PHYSICIAN Anesthesia Event [facility] Main dg, 5th [place] [address] Maurice Ferrera MD Thomas, Ashly, [facility] 05/19/2024 12:00 PM PREVENTIVE MEDICINE PHYSICIAN - 05/19/2024 1:10 PM PREVENTIVE MEDICINE PHYSICIAN Surgery [facility] [address] [place] [address] Main dg, 5th Floor Elevator [place] [phone] Brandon Alcala MD UPPER GASTROINTESTINAL ENDOSCOPY OF ESOPHAGUS, STOMACH, OR DUODENUM ANDJ ADJACENT STRUCTURES, WITH ENDOSCOPIC ULTRASOUND EXAMINATION 05/19/2024 11:17 AM PREVENTIVE MEDICINE PHYSICIAN - 05/19/2024 2:49 PM PREVENTIVE MEDICINE PHYSICIAN Hospital Encounter [facility] [address] [place] [address], 5th [place] [address] Brandon Alcala MD Adenocarcinoma of stomach Discharge Disposition: Home 05/19/2024 Travel 05/18/2024 1:00 PM PREVENTIVE MEDICINE PHYSICIAN Infusion [facility] - Ambulatory Treatment Center [address] [facility], Floor 6 [place] [address] Marianela Hutchinson MD Rupp, Alexa B, RN Adenocarcinoma of stomach (Primary Dx) 05/18/2024 12:20 PM PREVENTIVE MEDICINE PHYSICIAN [facility]Up [facility] [address] [place] [address], 7th [place] [address] Marianela Hutchinson MD Adenocarcinoma, NOS of stomach, NOS 05/18/2024 11:00 AM PREVENTIVE MEDICINE PHYSICIAN POEM Appointments [facility] Management [facility] [address] [place] [address], 6th [place] [address] Marianela Hutchinson MD 05/18/2024 10:32 AM PREVENTIVE MEDICINE PHYSICIAN - 05/18/2024 11:59 PM PREVENTIVE MEDICINE PHYSICIAN Hospital Encounter [facility] [address] [place] [address] Gillian Gomez PA-C Adenocarcinoma, NOS of stomach, NOS Discharge Disposition: Home 05/18/2024 Orders Only [facility] [address] [place] [address], 7th [place] [address] aMrianela Hutchinson MD Adenocarcinoma of stomach (Primary Dx) 05/18/2024 Orders Only [facility] [address] [place] [address], 7th [place] [address] Radha Castellon, [facility] Adenocarcinoma of stomach (Primary Dx); Iron deficiency anemia, not otherwise specified 05/18/2024 Travel 05/15/2024 11:59 PM PREVENTIVE MEDICINE PHYSICIAN Anesthesia Event [facility] [address] [place] [address], 6th [place] [address] Eri Lynne, RN 05/06/2024 5:30 PM PREVENTIVE MEDICINE PHYSICIAN [facility] Blue [address] [facility], 8th [place] [address] Marianela Hutchinson MD Pagara, Leni S, RN Adenocarcinoma of stomach 05/04/2024 12:36 PM PREVENTIVE MEDICINE PHYSICIAN - 05/04/2024 11:59 PM PREVENTIVE MEDICINE PHYSICIAN Hospital Encounter Ambulatory Treatment [place] - Main Building [address] [place] [address], 2nd Floor, [place] [address] Gillian Gomez PA-C Jo, Edifia Sungsoon, RN Adenocarcinoma of stomach (Primary Dx) Discharge Disposition: Home 05/04/2024 12:20 PM PREVENTIVE MEDICINE PHYSICIAN [facility]Up [facility] [address] [place] [address], 7th [place] [address] Marianela Hutchinson MD Adenocarcinoma, NOS of stomach, NOS 05/04/2024 11:10 AM PREVENTIVE MEDICINE PHYSICIAN - 05/04/2024 12:35 PM PREVENTIVE MEDICINE PHYSICIAN Hospital Encounter [facility] [address] [place] [address] Gillian Gomez PA-C Adenocarcinoma, NOS of stomach, NOS; Adenocarcinoma of stomach Discharge Disposition: Home 05/04/2024 Orders Only [facility] [address] [place] [address], 7th [place] [address] Marianela Hutchinson MD Adenocarcinoma of stomach (Primary Dx) 05/04/2024 Orders Only [facility] [address] [place] [address], 7th [place] [address] Radha Castellon [facility] Adenocarcinoma of stomach (Primary Dx) 05/04/2024 Travel 04/30/2024 Orders Only [facility] - Surgical Oncology [address] [place] [address], 7th Floor Elevator [place] [phone] Mary Kay Santamaria APRN Adenocarcinoma of stomach (Primary Dx); Paroxysmal atrial fibrillation; Hyperlipidemia, not otherwise specified; Type 2 diabetes mellitus with hyperglycemia 04/27/2024 8:05 PM PREVENTIVE MEDICINE PHYSICIAN Ancillary Procedure Image Library [address] [place] [address] Cancer 04/27/2024 8:00 PM PREVENTIVE MEDICINE PHYSICIAN Ancillary Procedure [facility] Library [address] [place] [address] Cancer 04/27/2024 Orders Only [facility] [address] [place] [address], [facility] [place] [address] Donnell Van Adenocarcinoma of stomach (Primary Dx) 04/24/2024 Documentation [facility] [address] [facility], 8th [place] [address] Mary Kay Santamaria APRN 04/24/2024 Orders Only [facility] - Surgical Oncology [address] [place] [address], [address] [place] [address] [place] [address] Mary Kay Santamaria APRN Adenocarcinoma, NOS of stomach, NOS (Primary Dx) 04/24/2024 Telephone [facility] - [facility] Oncology [address] [place] [address], [address] [place] [address] [place] [address] Mary Kay Santamaria APRN 04/22/2024 Lab Requisition [facility] Sincere Moralez MD Jain, Shilpa, MD 04/21/2024 Orders Only [facility] [address] [place] [address], [facility] [place] [address] Gillian Gomez PA-C Adenocarcinoma, NOS of stomach, NOS (Primary Dx); Adenocarcinoma of stomach 04/16/2024 Telephone [facility] PHYSICIAN [address] [place], [place] [id number] 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 RN Discharge Call 04/15/2024 10:09 AM PREVENTIVE MEDICINE PHYSICIAN Anesthesia Event MAIN OR [address] [place] [address] Meenakshi Crowe MD Miller, Wendy, CRNA 04/15/2024 10:05 AM PREVENTIVE MEDICINE PHYSICIAN - 04/15/2024 1:25 PM PREVENTIVE MEDICINE PHYSICIAN Surgery MAIN OR [address] [place] [address] John Fong MD ROBOTIC ASSISTED SURGICAL LAPAROSCOPY 04/15/2024 7:32 AM PREVENTIVE MEDICINE PHYSICIAN - 04/15/2024 11:50 PM PREVENTIVE MEDICINE PHYSICIAN Hospital Encounter MAIN OR [address] [place] [address] John Fong MD Adenocarcinoma of stomach (Primary Dx) Discharge Disposition: Home 04/15/2024 Travel 04/14/2024 2:30 PM PREVENTIVE MEDICINE PHYSICIAN Consult [facility] [address] [place] [address], 7th [place] [address] Gillian Gomez PA-C Badgwell, Brian, MD Adenocarcinoma, NOS of stomach, NOS (Primary Dx); Nausea 04/14/2024 Documentation [facility] - [facility] Oncology [address] [place] [address], 7th [place] [address] John Fong MD 04/13/2024 3:00 PM PREVENTIVE MEDICINE PHYSICIAN Consult [facility] [address] [place] [address], 7th [place] [address] Marianela Hutchinson MD Mass of stomach (Primary Dx) 04/13/2024 2:02 PM PREVENTIVE MEDICINE PHYSICIAN Anesthesia Event [facility] [address] [place] [address], 6th [place] [address] Curtis Moctezuma PA 04/12/2024 8:22 AM PREVENTIVE MEDICINE PHYSICIAN - 04/12/2024 3:42 PM PREVENTIVE MEDICINE PHYSICIAN Hospital Encounter MAIN P06B [address] [place] [address] Nghia Zhu MD Elsayem, Ahmed, MD Nausea and vomiting (Primary Dx); Gastric cancer; Pancreatitis Discharge Disposition: Left Against Medical Advice 04/12/2024 Travel 04/09/2024 8:25 PM PREVENTIVE MEDICINE PHYSICIAN Ancillary Procedure Image Library [address] [place] [address] Margoth Souza MD Cancer 04/09/2024 8:20 PM PREVENTIVE MEDICINE PHYSICIAN Ancillary Procedure Image Library [address] [place] [address] Margoth Souza MD Cancer 04/09/2024 8:15 PM PREVENTIVE MEDICINE PHYSICIAN Ancillary Procedure Image Library [address] [place] [address] Margoth Souza MD Cancer 04/09/2024 8:10 PM PREVENTIVE MEDICINE PHYSICIAN Ancillary Procedure Image Library [address] [place] [address] Margoth Souza MD Cancer 04/09/2024 8:05 PM PREVENTIVE MEDICINE PHYSICIAN Ancillary Procedure Image Library [address] [place] [address] Margoth Souza MD Cancer 04/09/2024 8:00 PM PREVENTIVE MEDICINE PHYSICIAN Ancillary Procedure Image Library [address] [place] [address] Margoth Souza MD Cancer 04/09/2024 10:48 AM PREVENTIVE MEDICINE PHYSICIAN - 04/09/2024 11:59 PM PREVENTIVE MEDICINE PHYSICIAN Hospital Encounter [facility] [address] [place] [address] Ceci Nicholson MD Encounter for other preprocedural examination; Atherosclerosis of coronary artery bypass graft without angina pectoris, not otherwise specified; 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 Discharge Disposition: Home 04/09/2024 10:00 AM PREVENTIVE MEDICINE PHYSICIAN POEM Appointments Perioperative Evaluation [facility] Management Center [address] [place] [address], 6th [place] [address] Margoth Souza MD 04/09/2024 9:56 AM PREVENTIVE MEDICINE PHYSICIAN - 04/09/2024 10:47 AM PREVENTIVE MEDICINE PHYSICIAN Hospital Encounter [facility] - Cardiology [address] [place] [address], 2nd [place] [address] Ceci Nicholson MD Adenocarcinoma of stomach; Hyperlipidemia, not otherwise specified; Encounter for other preprocedural examination; Atherosclerosis of coronary artery bypass graft without angina pectoris, not otherwise specified Discharge Disposition: Home 04/09/2024 9:00 AM PREVENTIVE MEDICINE PHYSICIAN Consult Perioperative Evaluation and Management [facility], 6th [place] [address] Mary Kay Santamaria APRN Misoi, Mercy W, MD Encounter for other preprocedural examination (Primary Dx); Adenocarcinoma of stomach; Paroxysmal atrial fibrillation; Hypertension; 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; Hyperlipidemia, not otherwise specified; Current use of 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; Atherosclerosis of coronary artery bypass graft without angina pectoris, not otherwise specified 04/09/2024 Travel 04/08/2024 Prep for Surgery [facility] [place] - Surgical Oncology [facility], [address] [place] [address] [place] [address] Mary Kay Santamaria APRN Adenocarcinoma of stomach (Primary Dx); Mass of stomach 04/08/2024 Orders Only [facility] [place] - Surgical Oncology [facility], [address] [place], [place] [address] [address] Mary Kay Santamaria APRN Adenocarcinoma of stomach (Primary Dx); Paroxysmal atrial fibrillation; Hypertension; 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; Hyperlipidemia, not otherwise specified; Current use of 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 04/08/2024 Orders Only [facility], 7th [place] [address] Gillian Gomez PA-C Adenocarcinoma, NOS of stomach, NOS (Primary Dx) 04/06/2024 Orders [facility] [address] [place] [address], 7th [place] [address] Roberto Poole PA 04/06/2024 [facility] [address] [place] [address], 7th [place] [address] Roberto Poole PA Mass of stomach (Primary Dx) 04/06/2024 Orders Only [facility] [address] [place] [address], 7th Floor Elevator [place], [place] [phone] Roberto Poole PA Mass of stomach (Primary Dx) 04/06/2024 Telephone [facility], 7th [place] [address] Anais Meng RN 02/11/2024 Travel 02/10/2024 3:30 PM CDT Telemedicine [facility] [address] [facility], 7th [place] [address] Margoth Souza MD Renal mass (Primary Dx) after 02/04/2024 Immunizations Immunization Administration Dates Next Due Influenza, [...] Service: UROLOGY CORONARY ARTERY BYPASS GRAFT 01/07/2024 IL LAPS ABD PRTM&OMENTUM DX W/WO SPEC BR/WA SPX 04/15/2024 Abdomen/N/A Procedure: ROBOTIC ASSISTED SURGICAL LAPAROSCOPY; Surgeon: John Fong MD; Location: MAIN OR; Service: SURG ONC - GASTRIC/HIPEC Medical devices from this surgery are in the Medical Devices section. IL FLUORO CENTRAL VENOUS ACC ESS DEV PLACEMENT 04/15/2024 Neck/N/A Procedure: FLUORO GUIDANCE FOR CENTRAL VENOUS ACCESS DEVICE PLACEMENT, REPLACEMENT, OR REMOVAL; Surgeon: John Fong MD; Location: MAIN OR; Service: SURG ONC - GASTRIC/HIPEC Medical devices from this surgery are in the Medical Devices section. IL US VASC ACCESS SITS VSL P ATENCY NDL ENTRY 04/15/2024 N/A Procedure: US GUIDANCE WITH EVAL OF POTENTIAL ACCESS SITES, REALTIME US VISUALIZATION OF VASC NEEDLE ENTRY; Surgeon: John Fong MD; Location: MAIN OR; Service: SURG ONC - GASTRIC/HIPEC Medical devices from this surgery are in the Medical Devices section. IL INSJ TUNNELED CTR VAD W/S UBQ PORT AGE 5 YR/> 04/15/2024 Neck/N/A Procedure: PORT-A-CATH PLACEMENT; Surgeon: John Fong MD; Location: MAIN OR; Service: SURG ONC - GASTRIC/HIPEC Medical devices from this surgery are in the Medical Devices section. IL ESOPHAGOGASTRODUODENOSCOP Y US SCOPE W/ADJ STRXRS 05/19/2024 Esophagus/N/A Procedure: UPPER GASTROINTESTINAL ENDOSCOPY OF ESOPHAGUS, STOMACH, OR DUODENUM ANDJ ADJACENT STRUCTURES, WITH ENDOSCOPIC ULTRASOUND EXAMINATION; Surgeon: Brandon Alcala MD; Location: MAIN ENDOSCOPY; Service: GASTROENTEROLOGY IL ESOPHAGOGASTRODUODENOSCOP Y TRANSORAL DIAGNOSTIC 06/30/2024 Esophagus/N/A Procedure: [...] locally 12/03/2023-12/06/2023 of note, pt was on Farxiga Peripheral vascular disease 2023 Left LE s/p [...] on file Legal Sex Male 11:38 AM PREVENTIVE MEDICINE PHYSICIAN Gender Identity Not on file Sexual Orientation Not on file Occupation Industry Job Start Date Job End Date retired from [employer] Not on file N ot on file Not on file Travel History Travel Start Travel End [place] 04/12/2024 04/12/2024 Obstetrics History Last Filed Vital Signs Vital Sign Reading Time Taken Comments Blood Pressure 158/75 01/31/2025 1:30 PM CDT Pulse 62 01/31/2025 1:30 PM CDT Temperature 36.4 °C (97.5 °F) 01/31/2025 1 0:11 AM CDT Respiratory Rate 20 01/31/2025 10:1 1 AM CDT Oxygen Saturation 98% 01/31/2025 10: 11 AM CDT Inhaled Oxygen Concentration - - Weight 81.5 kg (179 lb 10.8 oz) 025 10:05 AM CDT Height 188 cm (6' 2.02") 12/18/2024 11: 10 AM CDT Body Mass Index 23.06 12/18/2024 11:10 AM CDT Plan of Treatment Upcoming Encounters Date Type Department Care Team (Late st Contact Info) Description 02/08/2025 2:30 PM CDT [facility]medicine [facility] [address] [facility], 7th [place] [address] Margoth Souza MD [address] [place] [address] [email or web address] 02/12/2025 7:45 AM CDT Lab [facility] [address] [facility] 1st [place] [address] Marianela Hutchinson MD [address] [place] [phone] [email or web address] 02/12/2025 8:30 AM CDT Infusion MD [facility] [address] [place] [phone] Marianela Hutchinson MD [address] [place] [phone] [email or web address] 02/14/2025 1:45 PM CDT Appointment [facility] - Main Building [address] [place] [address] Main dg, 10th [place] [address] Marianela Hutchinson MD [address] [place] [phone] [email or web address] 02/26/2025 9:45 AM CDT Lab MD [facility] [address] [place] [address] Marianela Hutchinson MD [address] [place] [phone] [email or web address] 02/26/2025 10:45 AM CDT Infusion MD [facility] [address] [place] [address] Marianela Hutchinson MD [address] [place] [phone] [email or web address] 03/01/2025 3:20 PM CDT Telemedicine [facility] [address] [place] [address] Main Bldg, 7th [place] [address] Marianela Hutchinson MD [address] [place] [phone] [email or web address] 03/02/2025 7:30 PM CDT Appointment [facility] - Main Building [address] [place] [address], 2nd Floor, [place] [address] Gillian Gomez PA-C [address] [place] [phone] [email or web address] 03/12/2025 7:30 AM CDT Lab MD [facility] [address] [place] [address] [address] [place] [address] Marianela Hutchinson MD [address] [place] [phone] [email or web address] 03/12/2025 8:30 AM CDT Infusion MD [facility] [address] [place] [address] 4th [place] [address] Marianela Hutchinson MD [address] [place] [phone] [email or web address] Health Maintenance Due Date Last Done Comments COVID-19 Vaccine (#1) 01/09/1969 Pneumococcal Vaccine: 50+ Years (1 of 2 - PCV) 983 01/09/1975 Influenza Vaccine (#1) 2025 08/04/2018 Medical Devices Implanted Type Area [employer] Device Identifier Shelf Expiration Date Model / Serial / Lot Slade Muhammad 6fr - [id number] Implanted:Qty: 1 on 04/15/2024 by John Fong MD at [facility] [place] [facility] Implant Right: Neck BARD ACCESS SYSTEMS 12/17/2024 [id number] / / [id number] Procedures Procedure Name Priority Date/Time Associated Diagnosis Comments XR CHEST 2 VW Routine 01/29/2025 9:16 AM CDT Renal mass .CBC Routine 01/29/2025 8:56 AM CDT Adenocarcinoma of stomach COMPREHENSIVE METABOLIC PANEL Routine 8:56 AM CDT Adenocarcinoma of stomach COMPLETE BLOOD COUNT W/ DIFFERENTIAL Routine 01/29/2025 8:56 AM CDT Adenocarcinoma of stomach OSMOLALITY URINE Routine 01/29/2025 8:[address] CHEST ABDOMEN PELVIS W CONTRAST Routine 01/22/2025 11:06 AM CDT Adenocarcinoma of stomach .CBC Routine 01/22/2025 7:52 AM CDT Adenocarcinoma of stomach CARCINOEMBRYONIC ANTIGEN Routine 025 7:52 AM CDT Adenocarcinoma of stomach LACTATE DEHYDROGENASE Routine 01/22/2025 7:52 AM CDT Adenocarcinoma of stomach PHOSPHORUS LEVEL Routine 01/22/2025 7:52 AM CDT Adenocarcinoma of stomach MAGNESIUM LEVEL Routine 01/22/2025 7:52 AM CDT Adenocarcinoma of stomach COMPREHENSIVE METABOLIC PANEL Routine 7:52 AM CDT Adenocarcinoma of stomach COMPLETE BLOOD COUNT W/ DIFFERENTIAL Routine 01/22/2025 7:52 AM CDT Adenocarcinoma of stomach TRANSFERRIN Routine 01/22/2025 7:52 AM CDT Iron deficiency anemia, not otherwise specified Adenocarcinoma of stomach FERRITIN Routine 01/22/2025 7:52 AM CDT Iron deficiency anemia, not otherwise specified Adenocarcinoma of stomach IRON LEVEL Routine 01/22/2025 7:52 AM CDT Iron deficiency anemia, not otherwise specified Adenocarcinoma of stomach ADRENOCORTICOTROPIC HORMONE Routine 09/2024 7:52 AM CDT 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 Endocrine/[place] lic screening CORTISOL, TOTAL Routine 01/22/2025 7:52 AM CDT 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 Endocrine/[place] lic screening SODIUM URINE Routine 11/13/2024 2:01 PM CDT [...] CDT Adenocarcinoma of stomach CARCINOEMBRYONIC ANTIGEN Routine 7:40 AM CDT Adenocarcinoma of stomach LACTATE [...] PELVIS W CONTRAST Routine 07/15/2024 4:38 PM PREVENTIVE MEDICINE PHYSICIAN Adenocarcinoma of stomach .CBC Routine 07/15/2024 10:01 AM PREVENTIVE MEDICINE PHYSICIAN Adenocarcinoma of stomach CARCINOEMBRYONIC ANTIGEN Routine 025 10:01 AM PREVENTIVE MEDICINE PHYSICIAN Adenocarcinoma of stomach LACTATE DEHYDROGENASE Routine 07/15/2024 10:01 AM PREVENTIVE MEDICINE PHYSICIAN Adenocarcinoma of stomach PHOSPHORUS LEVEL Routine 07/15/2024 10:01 AM PREVENTIVE MEDICINE PHYSICIAN Adenocarcinoma of stomach MAGNESIUM LEVEL Routine 07/15/2024 10:01 AM PREVENTIVE MEDICINE PHYSICIAN Adenocarcinoma of stomach COMPREHENSIVE METABOLIC PANEL Routine 10:01 AM PREVENTIVE MEDICINE PHYSICIAN Adenocarcinoma of stomach COMPLETE BLOOD COUNT W/ DIFFERENTIAL Routine 07/15/2024 10:01 AM PREVENTIVE MEDICINE PHYSICIAN Adenocarcinoma of stomach RESEARCH PROTOCOL [id number] Routine 07/15 10:01 AM PREVENTIVE MEDICINE PHYSICIAN Adenocarcinoma of stomach MDA AP IHC WORKUP Routine 07/07/2024 12:29 PM PREVENTIVE MEDICINE PHYSICIAN Adenocarcinoma of stomach POC GLUCOSE SCREEN Routine 06/30/2024 1:23 PM PREVENTIVE MEDICINE PHYSICIAN PATHOLOGY BIOPSY INTERPRETATION Routine 06/30/2024 12:51 PM PREVENTIVE MEDICINE PHYSICIAN Adenocarcinoma of stomach IL ESOPHAGOGASTRODUODENOSCOP Y TRANSORAL DIAGNOSTIC 06/30/2024 12:15 PM PREVENTIVE MEDICINE PHYSICIAN Adenocarcinoma of stomach Case Notes 06/12 per gene to schedule on 06/30, per tor to schedule 06/30 thru lunch last AM case, slot held to offer. LVM and sent mychart to schedule-DC Special Needs SHERIFFS DETECTIVEARTURO PEREZ COMPLETE 06/18.SHERIFFS DETECTIVEARTURO PEREZ LVM FOR DAUGHTER WITH DETAILED INSTRUCTIONS FOR PROCEDURE IN ADDITION TO HOLD ON PLAVIX FOR 5 DAYS.SHERIFFS DETECTIVEARTURO HERNANDEZ 1ST CALL 06/16. POC CHEM 8 Routine 06/30/2024 11:10 AM PREVENTIVE MEDICINE PHYSICIAN POC GLUCOSE SCREEN Routine 06/30/2024 10:52 AM PREVENTIVE MEDICINE PHYSICIAN POC CHEM 8 Routine 06/29/2024 9:54 AM PREVENTIVE MEDICINE PHYSICIAN EKG, 12-LEAD (SCHEDULED) Routine 06/29/2024 Adenocarcinoma of stomach PETCT F18 FDG (FLUORODEOXYGLUCOSE) WITH CONTRAST Routine 06/20/2024 12:42 PM PREVENTIVE MEDICINE PHYSICIAN Adenocarcinoma, NOS of stomach, NOS Malignant neoplasm of overlapping sites of esophagus POC GLUCOSE SCREEN Routine 06/20/2024 11:06 AM PREVENTIVE MEDICINE PHYSICIAN .CBC Routine 06/20/2024 10:35 AM PREVENTIVE MEDICINE PHYSICIAN Adenocarcinoma, NOS of stomach, NOS CARCINOEMBRYONIC ANTIGEN Routine 025 10:35 AM PREVENTIVE MEDICINE PHYSICIAN Adenocarcinoma, NOS of stomach, NOS LACTATE DEHYDROGENASE Routine 06/20/2024 10:35 AM PREVENTIVE MEDICINE PHYSICIAN Adenocarcinoma, NOS of stomach, NOS PHOSPHORUS LEVEL Routine 06/20/2024 10:35 AM PREVENTIVE MEDICINE PHYSICIAN Adenocarcinoma, NOS of stomach, NOS MAGNESIUM LEVEL Routine 06/20/2024 10:35 AM PREVENTIVE MEDICINE PHYSICIAN Adenocarcinoma, NOS of stomach, NOS COMPREHENSIVE METABOLIC PANEL Routine 10:35 AM PREVENTIVE MEDICINE PHYSICIAN Adenocarcinoma, NOS of stomach, NOS COMPLETE BLOOD COUNT W/ DIFFERENTIAL Routine 06/20/2024 10:35 AM PREVENTIVE MEDICINE PHYSICIAN Adenocarcinoma, NOS of stomach, NOS .CBC Routine 06/15/2024 10:39 AM PREVENTIVE MEDICINE PHYSICIAN Adenocarcinoma of stomach CARCINOEMBRYONIC ANTIGEN Routine 025 10:39 AM PREVENTIVE MEDICINE PHYSICIAN Adenocarcinoma, NOS of stomach, NOS LACTATE DEHYDROGENASE Routine 06/15/2024 10:39 AM PREVENTIVE MEDICINE PHYSICIAN Adenocarcinoma, NOS of stomach, NOS PHOSPHORUS LEVEL Routine 06/15/2024 10:39 AM PREVENTIVE MEDICINE PHYSICIAN Adenocarcinoma, NOS of stomach, NOS MAGNESIUM LEVEL Routine 06/15/2024 10:39 AM PREVENTIVE MEDICINE PHYSICIAN Adenocarcinoma, NOS of stomach, NOS COMPREHENSIVE METABOLIC PANEL Routine 10:39 AM PREVENTIVE MEDICINE PHYSICIAN Adenocarcinoma of stomach COMPLETE BLOOD COUNT W/ DIFFERENTIAL Routine 06/15/2024 10:39 AM PREVENTIVE MEDICINE PHYSICIAN Adenocarcinoma of stomach .CBC Routine 06/01/2024 11:10 AM PREVENTIVE MEDICINE PHYSICIAN Adenocarcinoma of stomach TRANSFERRIN Routine 06/01/2024 11:10 AM PREVENTIVE MEDICINE PHYSICIAN Iron deficiency anemia, not otherwise specified Adenocarcinoma of stomach FERRITIN Routine 06/01/2024 11:10 AM PREVENTIVE MEDICINE PHYSICIAN Iron deficiency anemia, not otherwise specified Adenocarcinoma of stomach IRON LEVEL Routine 06/01/2024 11:10 AM PREVENTIVE MEDICINE PHYSICIAN Iron deficiency anemia, not otherwise specified Adenocarcinoma of stomach COMPREHENSIVE METABOLIC PANEL Routine 11:10 AM PREVENTIVE MEDICINE PHYSICIAN Adenocarcinoma of stomach COMPLETE BLOOD COUNT W/ DIFFERENTIAL Routine 06/01/2024 11:10 AM PREVENTIVE MEDICINE PHYSICIAN Adenocarcinoma of stomach POC GLUCOSE SCREEN Routine 05/19/2024 1:52 PM PREVENTIVE MEDICINE PHYSICIAN PATHOLOGY BIOPSY INTERPRETATION Routine 05/19/2024 1:10 PM PREVENTIVE MEDICINE PHYSICIAN Adenocarcinoma of stomach IL ESOPHAGOGASTRODUODENOSCOP Y US SCOPE W/ADJ STRXRS 05/19/2024 12:34 PM PREVENTIVE MEDICINE PHYSICIAN Adenocarcinoma of stomach Case Notes 04/24- WAITING FOR TRIAGE TO [place] FOR 05/01-BJ Special Needs SHERIFFS DETECTIVE [place] Call Completed 24Had laproscopy on 04/15/24 POC GLUCOSE SCREEN Routine 05/19/2024 12:21 PM PREVENTIVE MEDICINE PHYSICIAN .CBC Routine 05/18/2024 10:55 AM PREVENTIVE MEDICINE PHYSICIAN Adenocarcinoma, NOS of stomach, NOS CARCINOEMBRYONIC ANTIGEN Routine 024 10:55 AM PREVENTIVE MEDICINE PHYSICIAN Adenocarcinoma, NOS of stomach, NOS LACTATE DEHYDROGENASE Routine 05/18/2024 10:55 AM PREVENTIVE MEDICINE PHYSICIAN Adenocarcinoma, NOS of stomach, NOS PHOSPHORUS LEVEL Routine 05/18/2024 10:55 AM PREVENTIVE MEDICINE PHYSICIAN Adenocarcinoma, NOS of stomach, NOS MAGNESIUM LEVEL Routine 05/18/2024 10:55 AM PREVENTIVE MEDICINE PHYSICIAN Adenocarcinoma, NOS of stomach, NOS COMPREHENSIVE METABOLIC PANEL Routine 10:55 AM PREVENTIVE MEDICINE PHYSICIAN Adenocarcinoma, NOS of stomach, NOS COMPLETE BLOOD COUNT W/ DIFFERENTIAL Routine 05/18/2024 10:55 AM PREVENTIVE MEDICINE PHYSICIAN Adenocarcinoma, NOS of stomach, NOS .CBC Routine 05/04/2024 11:34 AM PREVENTIVE MEDICINE PHYSICIAN Adenocarcinoma, NOS of stomach, NOS RESEARCH PROTOCOL [id number] Routine 05/04 11:34 AM PREVENTIVE MEDICINE PHYSICIAN Adenocarcinoma of stomach CARCINOEMBRYONIC ANTIGEN Routine 024 11:34 AM PREVENTIVE MEDICINE PHYSICIAN Adenocarcinoma, NOS of stomach, NOS LACTATE DEHYDROGENASE Routine 05/04/2024 11:34 AM PREVENTIVE MEDICINE PHYSICIAN Adenocarcinoma, NOS of stomach, NOS PHOSPHORUS LEVEL Routine 05/04/2024 11:34 AM PREVENTIVE MEDICINE PHYSICIAN Adenocarcinoma, NOS of stomach, NOS MAGNESIUM LEVEL Routine 05/04/2024 11:34 AM PREVENTIVE MEDICINE PHYSICIAN Adenocarcinoma, NOS of stomach, NOS COMPREHENSIVE METABOLIC PANEL Routine 11:34 AM PREVENTIVE MEDICINE PHYSICIAN Adenocarcinoma, NOS of stomach, NOS COMPLETE BLOOD COUNT W/ DIFFERENTIAL Routine 05/04/2024 11:34 AM PREVENTIVE MEDICINE PHYSICIAN Adenocarcinoma, NOS of stomach, NOS VERIFY CATHETER TIP PLACEMENT Routine 3:50 PM PREVENTIVE MEDICINE PHYSICIAN Adenocarcinoma of stomach POC GLUCOSE SCREEN Routine 04/15/2024 3:21 PM PREVENTIVE MEDICINE PHYSICIAN XR CHEST 1 VW PORTABLE Routine 2:45 PM PREVENTIVE MEDICINE PHYSICIAN POC GLUCOSE SCREEN Routine 04/15/2024 1:05 PM PREVENTIVE MEDICINE PHYSICIAN POC GLUCOSE SCREEN Routine 04/15/2024 12:52 PM PREVENTIVE MEDICINE PHYSICIAN CYTOLOGY NON-VALIDATION SOFTWARE FACILITATOR INTERPRETATION Routine 04/15/2024 12:33 PM PREVENTIVE MEDICINE PHYSICIAN Adenocarcinoma of stomach PATHOLOGY SURGICAL INTERPRETATION Routine 04/15/2024 12:13 PM PREVENTIVE MEDICINE PHYSICIAN Adenocarcinoma of stomach FL CENTRAL VENOUS PLACE EXCHANGE Routine 04/15/2024 11:40 AM PREVENTIVE MEDICINE PHYSICIAN Adenocarcinoma of stomach POC GLUCOSE SCREEN Routine 04/15/2024 9:22 AM PREVENTIVE MEDICINE PHYSICIAN IL INSJ TUNNELED CTR VAD W/SUBQ PORT AGE 5 YR/> 04/15/2024 9:16 AM PREVENTIVE MEDICINE PHYSICIAN Adenocarcinoma of stomach Special Needs MTL@0800 IL US VASC ACCESS SITS VSL PATENCY NDL ENTRY 04/15/2024 9:16 AM PREVENTIVE MEDICINE PHYSICIAN Adenocarcinoma of stomach Special Needs MTL@0800 IL FLUORO CENTRAL VENOUS ACCESS DEV PLACEMENT 04/15/2024 9:16 AM PREVENTIVE MEDICINE PHYSICIAN Adenocarcinoma of stomach Special Needs MTL@0800 IL LAPS ABD PRTM&OMENTUM DX W/WO SPEC BR/WA SPX 04/15/2024 9:16 AM PREVENTIVE MEDICINE PHYSICIAN Adenocarcinoma of stomach Special Needs MTL@0800 CT ABDOMEN PELVIS W CONTRAST Routine 11:18 AM PREVENTIVE MEDICINE PHYSICIAN .CBC Routine 04/12/2024 9:04 AM PREVENTIVE MEDICINE PHYSICIAN LIPASE LEVEL Routine 04/12/2024 9:04 AM PREVENTIVE MEDICINE PHYSICIAN AMYLASE LEVEL Routine 04/12/2024 9:04 AM PREVENTIVE MEDICINE PHYSICIAN LACTATE DEHYDROGENASE Routine 04/12/2024 9:04 AM PREVENTIVE MEDICINE PHYSICIAN FRACTIONATED BILIRUBIN Routine 9:04 AM PREVENTIVE MEDICINE PHYSICIAN PHOSPHORUS LEVEL Routine 04/12/2024 9:04 AM PREVENTIVE MEDICINE PHYSICIAN MAGNESIUM LEVEL Routine 04/12/2024 9:04 AM PREVENTIVE MEDICINE PHYSICIAN COMPREHENSIVE METABOLIC PANEL Routine 9:04 AM PREVENTIVE MEDICINE PHYSICIAN COMPLETE BLOOD COUNT W/ DIFFERENTIAL Routine 04/12/2024 9:04 AM PREVENTIVE MEDICINE PHYSICIAN .CBC Routine 04/09/2024 11:09 AM PREVENTIVE MEDICINE PHYSICIAN Encounter for other preprocedural examination Atherosclerosis of coronary artery bypass graft without angina pectoris, not otherwise specified THYROID STIMULATING HORMONE Routine 03/21 11:09 AM PREVENTIVE MEDICINE PHYSICIAN Encounter for other preprocedural examination Atherosclerosis of coronary artery bypass graft without angina pectoris, not otherwise specified HEMOGLOBIN A1C Routine 04/09/2024 11:09 AM PREVENTIVE MEDICINE PHYSICIAN 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 Encounter for other preprocedural examination COMPREHENSIVE METABOLIC PANEL Routine 11:09 AM PREVENTIVE MEDICINE PHYSICIAN Encounter for other preprocedural examination Atherosclerosis of coronary artery bypass graft without angina pectoris, not otherwise specified COMPLETE BLOOD COUNT W/ DIFFERENTIAL Routine 04/09/2024 11:09 AM PREVENTIVE MEDICINE PHYSICIAN Encounter for other preprocedural examination Atherosclerosis of coronary artery bypass graft without angina pectoris, not otherwise specified EKG, 12-LEAD (SCHEDULED) Routine 04/09/2024 Adenocarcinoma of stomach Hyperlipidemia, not otherwise specified Encounter for other preprocedural examination Atherosclerosis of coronary artery bypass graft without angina pectoris, not otherwise specified PATHOLOGY OUTSIDE INTERPRETATION Routine 04/02/[address] ABDOMEN AND PELVIS Routine 2023 8:21 AM PREVENTIVE MEDICINE PHYSICIAN Cancer OSI CHEST Routine 03/23/2024 7:37 PM PREVENTIVE MEDICINE PHYSICIAN Cancer OSI CT CHEST ABDOMEN PELVIS Routine 08/2023 7:37 PM PREVENTIVE MEDICINE PHYSICIAN Cancer OSI CHEST Routine 03/23/2024 7:37 PM PREVENTIVE MEDICINE PHYSICIAN Cancer OSI CT CHEST Routine 03/22/2024 8:21 AM PREVENTIVE MEDICINE PHYSICIAN Cancer OSI CT ABDOMEN AND PELVIS Routine 2023 7:36 PM CDT Cancer after 02/04/2024 Results * X-ray Chest 2 Views (01/29/2025 9:16 AM CDT) Anatomical Region Laterality Modality Chest Digital Radiogra phy 01/29/2025 9:27 AM CDT Impressions 01/29/2025 9:28 AM CDT No radiographic evidence of acute cardiopulmonary disease. ACTIONABLE ITEMS/RECOMMENDATIONS*: None. *An Actionable Finding is a finding that may be unrelated to the original reason for imaging but potentially actionable, meaning further investigation may be necessary. The Actionable Findings Vigilance Unit (AFVU) assists medical providers with responding to additional radiologic findings that are unexpected and potentially actionable. Narrative 01/29/2025 9:28 AM CDT FULL RESULT: Examination: XR CHEST 2 VW on 01/29/2025 9:16 AM. Clinical History: Renal mass Indication: Staging of Disease Progression Comparison: 04/15/2024 Technique: Posteroanterior, lateral and dual-energy radiographs of the chest Findings: Support Apparatus: A right internal jugular port catheter has its tip overlying the superior vena cava. Lungs/Pleura: No new pulmonary nodule, mass or consolidation is seen. There are no pleural effusions. No pneumothorax. Mediastinum/Heart: The cardiomediastinal silhouette is stable. Median sternotomy wires. Procedure Note Julieth Bonner C.B., MD - 01/29/2025 FULL RESULT: Examination: XR CHEST 2 VW on 01/29/2025 9:16 AM. Clinical History: Renal mass Indication: Staging of Disease Progression Comparison: 04/15/2024 Technique: Posteroanterior, lateral and dual-energy radiographs of thechest Findings: Support Apparatus: A right internal jugular port catheter has its tipoverlying the superior vena cava. Lungs/Pleura: No new pulmonary nodule, mass or consolidation is seen.There are no pleural effusions. No pneumothorax. Mediastinum/Heart: The cardiomediastinal silhouette is stable. Mediansternotomy wires. IMPRESSION: No radiographic evidence of acute cardiopulmonary disease. ACTIONABLE ITEMS/RECOMMENDATIONS*: None. *An Actionable Finding is a finding that may be unrelated to the originalreason for imaging but potentially actionable, meaning furtherinvestigation may be necessary. The Actionable Findings Vigilance Unit(AFVU) assists medical providers with responding to additional radiologicfindings that are unexpected and potentially actionable. Margoth Souza MD [facility]AG[facility] ORDERABLE S Final Result * (ABNORMAL) .CBC (01/29/2025 8:56 AM [facility]) Only the most recent of19 resultswithin the time period is included. White Blood Cell 6.9 4.1 - 10.5 K/uL 01/29/2025 9:07 AM [facility] Red Blood Cell 4.05(L) 4.30 - 6.04 M/uL 01/29/2025 9:07 AM [facility] Hemoglobin 10.3(L) 13.3 - 17.4 g/dL 01/29/2025 9:07 AM [facility] Hematocrit 32.7(L) 39.5 - 51.8 % 01/29/2025 9:07 AM [facility] Mean Cell Volume 81(L) 82 - 99 fL 01/29/2025 9:07 AM [facility] Mean Cell Hemoglobin 25.4(L) 26.6 - 33.2 pg 01/29/2025 9:07 AM [facility] Mean Cell Hemoglobin Concentration 31.5 31.1 - 35.2 g/dL 01/29/2025 9:07 AM [facility] RDW-SD 45.2 37.5 - 49.7 fL 01/29/2025 9:07 AM [facility] Red Cell Diameter Width 15.0 11.6 - 15.5 % 01/29/2025 9:07 AM [facility] Platelet 333 160 - 397 K/uL 01/29/2025 9:07 AM [facility] Mean Platelet Volume 9.4 9.1 - 12.6 fL 01/29/2025 9:07 AM [facility] Neutrophil % 68.1 43.2 - 72.7 % 01/29/2025 9:07 AM [facility] Lymphocyte % 19.1 16.8 - 46.2 % 01/29/2025 9:07 AM [facility] Monocyte % 8.3 5.1 - 12.5 % 01/29/2025 9:07 AM [facility] Eosinophil % 3.6 0.4 - 6.3 % 01/29/2025 9:07 AM [facility] Basophil % 0.6 0.2 - 1.4 % 01/29/2025 9:07 AM [facility] IGRE % 0.3 0.1 - 1.5 % 01/29/2025 9:07 AM [facility] Comment:The IGRE% includes M etamyelocytes, Myelocytes and Promyelocytes. Neutrophil Abs 4.68 1.95 - 7.25 K/uL 01/29/2025 9:07 AM [facility] Lymphocyte Abs 1.31 1.01 - 3.24 K/uL 01/29/2025 9:07 AM [facility] Monocyte Abs 0.57 0.24 - 0.85 K/uL 01/29/2025 9:07 AM [facility] Eosinophil Abs 0.25 0.02 - 0.50 K/uL 01/29/2025 9:07 AM [facility] Basophil Abs 0.04 0.02 - 0.09 K/uL 01/29/2025 9:07 AM [facility] IG Abs 0.02 0.01 - 0.12 K/uL 01/29/2025 9:07 AM [facility] Blood Peripheral blood specimen / Unknown Venipuncture / Unknown 01/29/2025 8:56 AM CDT 01/29/2025 9:02 AM CDT us Marianela Hutchinson MD LAB BLOOD ORDERABLES Final Re sult EWELINA HIGGINS MD [facility] [address] [facility], [facility] [address] [place] [address] * (ABNORMAL) Comprehensive Metabolic Panel (01/29/2025 8:56 AM CDT) Only the most recent of20 resultswithin the time period is included. Bilirubin Total 0.3 0.0 - 1.2 mg/dL 01/29/2025 9:25 AM [facility] Comment:Indocyanine Green (I CG) may cause falsely elevated bilirubin results. Total and direct bilirubin must not be measured from samples containing indocyanine green. False elevation of total bilirubin can be seen in patients with IgG concentrations above 28 g/L. eGFR 100 >=60 mL/min/1. 73 sq. m 01/29/2025 9:25 AM [facility] Comment: The eGFRcr is calculated with the [...] G2 fulfill criteria for CKD. Tot Protein 7.9 6.4 - 8.3 gm/dL 01/29/2025 9:25 AM [facility] Calcium Level Total 9.2 8.2 - 10.2 mg/dL 01/29/2025 9:25 AM [facility] Alkaline Phosphatase 97 40 - 129 U/L 01/29/2025 9:25 AM [facility] Albumin Level 3.5 3.5 - 5.2 gm/dL 01/29/2025 9:25 AM [facility] AST 10 <=40 U/L 01/29/2025 9:25 AM [facility] ALT <5 <=41 U/L 01/29/2025 9:25 AM [facility] Sodium Level 135(L) 136 - 145 mmol/L 01/29/2025 9:25 AM [facility] Potassium Level 4.4 3.4 - 4.5 mmol/L 01/29/2025 9:25 AM [facility] Chloride 102 98 - 107 mmol/L 01/29/2025 9:25 AM [facility] CO2 23 22 - 29 mmol/L 01/29/2025 9:25 AM [facility] Anion Gap 10 4 - 14 mmol/L 01/29/2025 9:25 AM [facility] Creatinine 0.81 0.67 - 1.17 mg/dL 01/29/2025 9:25 AM [facility] BUN 37(H) 6 - 23 mg/dL 01/29/2025 9:25 AM [facility] Glucose Level 124(H) 70 - 99 mg/dL 01/29/2025 9:25 AM [facility] Comment: Effective 12/14/15, the glucose reference intervals [...] blood specimen / Unknown Venipuncture / Unknown 01/29/2025 8:56 AM CDT 01/29/2025 9:02 AM CDT us Marianela Hutchinson MD LAB BLOOD ORDERABLES Final Re sult [facility] [address] [facility], [facility] [address] [place] [address] * Osmolality Urine (01/29/2025 8:56 AM CDT) Only the most recent of2 resultswithin the time period is included. Urine Osmolality 563 50 - 1,400 mOsm/kg H2O 01/29/2025 2:02 PM CDT [facility] Comment:Urinary osmolality m ay vary widely, depending on the state of hydration. Random urine osmolality can range from 50 to 1400 mOsm/kg H2O depending on fluid intake. In individuals on average fluid intake, urine osmolality is typically 300-900 mOsm/kg H2O. Units of measure: mOsm per Kg of water. Urine Voided urine specimen / Unknown Non-blood Collection / Unknown 01/29/2025 8:56 AM CDT 01/29/2025 9:02 AM CDT Shira Segovia MD URINE ORDERABLES Final Result [facility] [address] [place] [address] * CT Chest Abdomen Pelvis with Contrast (01/22/2025 11:06 AM CDT) Only the most recent of3 resultswithin the time period is included. Anatomical Region Laterality Modality Abdomen, Pelvis, Chest Computed Tomography 01/22/2025 1:24 PM CDT Impressions 01/22/2025 5:00 PM CDT 1. Compared to 10/25/2024, interval worsening ascites with increased attenuation of the peritoneal fat in the greater omentum however no discrete measurable peritoneal metastases present. Possibility of malignant ascites cannot be entirely excluded. Consider fluid sampling for further evaluation. 2. Persistent segmental wall thickening and hyperenhancement involving the transverse colon and a portion of the ascending colon which may represent inflammatory colitis or metastasis. Correlation with endoscopy suggested if indicated. 3. Stable wall thickening of the distal esophagus and gastric antrum probably reflects known neoplasm. 4. No evidence of new metastatic disease within the chest. ACTIONABLE ITEMS/RECOMMENDATIONS*: None. *An Actionable Finding is a finding that may be unrelated to the original reason for imaging but potentially actionable, meaning further investigation may be necessary. The Actionable Findings Vigilance Unit (AFVU) assists medical providers with responding to additional radiologic findings that are unexpected and potentially actionable. I personally reviewed these image(s) along with the resident's/fellow's interpretations, certify that if a procedure was performed I was physically present, and agree with the final report. Narrative 01/22/2025 5:00 PM CDT FULL RESULT: Examination: CT CHEST ABDOMEN PELVIS W CONTRAST on 01/22/2025 11:06 AM. 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 Indication: restaging. Comparison: CT chest abdomen pelvis from 10/25/2024.. Technique: CT CHEST ABDOMEN PELVIS W CONTRAST. Findings: CHEST: Lines: right central venous catheter with the tip at the cavoatrial junction. Lungs and Pleura: There is minimal bibasilar atelectasis. Previously noted clustered nodular opacities in the left lung base have slightly improved in the interval for example #134 series 7. Unchanged tiny calcified granulomas in the left lung base for example #110, 133. There are no suspicious pulmonary nodules. No pleural effusion. Cardiomediastinum: Stable subcentimeter right thyroid nodule is present. A right internal jugular chest port terminates near the cavoatrial junction. There are post surgical changes of median sternotomy and CABG. Lymph nodes: No lymphadenopathy. Other: Stable 0.9 cm right thyroid lobe nodule. ABDOMEN AND PELVIS: Hepatobiliary: The liver is homogeneous in attenuation, without evidence of a focal mass. No biliary dilatation. A punctate gallstone is present in the gallbladder, unchanged from prior. No evidence of cholecystitis. Spleen: The spleen is mildly enlarged measuring 13.7 cm. Pancreas: No pancreatic duct dilatation. No pancreatic mass identified. No direct signs of pancreatic inflammation. Adrenal Glands: There is a stable 1.7 cm left adrenal nodule, possibly an adenoma. The right adrenal gland is unremarkable. Kidneys, Ureters, Bladder: No hydronephrosis. There are post surgical changes of partial left nephrectomy. The right kidney is unremarkable. There is mild bilateral perinephric stranding. No bladder wall thickening. Gastrointestinal Tract: Persistent segmental wall thickening and hyperenhancement involving the transverse colon and a portion of the ascending colon which may represent infectious/inflammatory colitis or metastasis. There is diffuse wall thickening of the distal esophagus and the gastric antrum, stable from prior. No bowel dilatation. Pelvic Organs: The prostate is mildly enlarged. Peritoneum/Retroperitoneum: Interval worsening of ascites which is currently moderate with increased attenuation of the peritoneal fat in the greater omentum. No measurable peritoneal nodule. Lymph Nodes: There is a stable indeterminate 1 cm right common iliac lymph node (6/290). No new enlarged abdominal or pelvic lymph nodes. MUSCULOSKELETAL: Degenerative changes are present of the spine. No suspect osseous lesions. Procedure Note Arabella Maddox MD - 01/22/2025 FULL RESULT: Examination: CT CHEST ABDOMEN PELVIS W CONTRAST on 01/22/2025 11:06 AM. 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 Indication: restaging. Comparison: CT chest abdomen pelvis from 10/25/2024.. Technique: CT CHEST ABDOMEN PELVIS W CONTRAST. Findings: CHEST: Lines: right central venous catheter with the tip at the cavoatrialjunction. Lungs and Pleura: There is minimal bibasilar atelectasis. Previously notedclustered nodular opacities in the left lung base have slightly improvedin the interval for example #134 series 7. Unchanged tiny calcifiedgranulomas in the left lung base for example #110, 133. There are nosuspicious pulmonary nodules. No pleural effusion. Cardiomediastinum: Stable subcentimeter right thyroid nodule is present. Aright internal jugular chest port terminates near the cavoatrial junction.There are post surgical changes of median sternotomy and CABG. Lymph nodes: No lymphadenopathy. Other: Stable 0.9 cm right thyroid lobe nodule. ABDOMEN AND PELVIS: Hepatobiliary: The liver is homogeneous in attenuation, without evidenceof a focal mass. No biliary dilatation. A punctate gallstone is present inthe gallbladder, unchanged from prior. No evidence of cholecystitis. Spleen: The spleen is mildly enlarged measuring 13.7 cm. Pancreas: No pancreatic duct dilatation. No pancreatic mass identified. Nodirect signs of pancreatic inflammation. Adrenal Glands: There is a stable 1.7 cm left adrenal nodule, possibly anadenoma. The right adrenal gland is unremarkable. Kidneys, Ureters, Bladder: No hydronephrosis. There are post surgicalchanges of partial left nephrectomy. The right kidney is unremarkable.There is mild bilateral perinephric stranding. No bladder wall thickening. Gastrointestinal Tract: Persistent segmental wall thickening andhyperenhancement involving the transverse colon and a portion of theascending colon which may represent infectious/inflammatory colitis ormetastasis. There is diffuse wall thickening of the distal esophagus andthe gastric antrum, stable from prior. No bowel dilatation. Pelvic Organs: The prostate is mildly enlarged. Peritoneum/Retroperitoneum: Interval worsening of ascites which iscurrently moderate with increased attenuation of the peritoneal fat in thegreater omentum. No measurable peritoneal nodule. Lymph Nodes: There is a stable indeterminate 1 cm right common iliac lymphnode (). No new enlarged abdominal or pelvic lymph nodes. MUSCULOSKELETAL: Degenerative changes are present of the spine. No suspect osseouslesions. IMPRESSION: 1. Compared to 10/25/2024, interval worsening ascites with increasedattenuation of the peritoneal fat in the greater omentum however nodiscrete measurable peritoneal metastases present. Possibility ofmalignant ascites cannot be entirely excluded. Consider fluid sampling forfurther evaluation. 2. Persistent segmental wall thickening and hyperenhancement involvingthe transverse colon and a portion of the ascending colon which mayrepresent inflammatory colitis or metastasis. Correlation with endoscopysuggested if indicated. 3. Stable wall thickening of the distal esophagus and gastric antrumprobably reflects known neoplasm. 4. No evidence of new metastatic disease within the chest. ACTIONABLE ITEMS/RECOMMENDATIONS*: None. *An Actionable Finding is a finding that may be unrelated to the originalreason for imaging but potentially actionable, meaning furtherinvestigation may be necessary. The Actionable Findings Vigilance Unit(AFVU) assists medical providers with responding to additional radiologicfindings that are unexpected and potentially actionable. I personally reviewed these image(s) along with the resident's/fellow'sinterpretations, certify that if a procedure was performed I wasphysically present, and agree with the final report. us Gillian Gomez PA-C IMG CT ORDERABLES Final Re sult * ACTH (01/22/2025 7:52 AM CDT) ACTH 34 7 - 63 pg/mL 01/22/2025 9:29 AM CDT [facility] Blood Peripheral blood specimen / Unknown Venipuncture / Unknown 01/22/2025 7:52 AM CDT 01/22/2025 8:04 AM CDT Narrative [facility] - 01/22/2025 9:29 AM CDT Reference range established based on adult population (7 - 10am draws). No established reference values for p.m. draws. Results greater than 1826 pg/mL may not be reliable due to matrix effect with extended dilution as it exceeds the motion study analyst's recommended limit. ACTH reference intervals are established for the morning hours from 7-10 am. Due to the circadian rhythm of ACTH levels in plasma, the sample collection time must be noted. Caution should be exercised when interpreting such values and done in conjunction with clinical context. Veronica Del Castillo APRN LAB BLOOD ORDERABLES Final Result Performing Organization Address City/[facility]/ZIP Co de Phone Number [address] [phone] * (ABNORMAL) Transferrin with TIBC (01/22/2025 7:52 AM CDT) Only the most recent of2 resultswithin the time period is included. Transferrin 152(L) 200 - 360 mg/dL 01/22/2025 9:18 AM CDT [facility] Total Iron Binding Capacity 213(L) 250 - 450 mcg/dL 01/22/2025 9:18 AM CDT [facility] Blood Peripheral blood specimen / Unknown Venipuncture / Unknown 01/22/2025 7:52 AM CDT 01/22/2025 8:13 AM CDT Marianela Hutchinson MD LAB BLOOD ORDERABLES Final Re sult [address] [address] * Phosphorus Level (01/22/2025 7:52 AM CDT) Only the most recent of11 resultswithin the time period is included. Phosphorus Level 4.0 2.5 - 4.5 mg/dL 01/22/2025 9:00 AM CDT [facility] Blood Peripheral blood specimen / Unknown Venipuncture / Unknown 01/22/2025 7:52 AM CDT 01/22/2025 8:13 AM CDT Gillian PRICE-Adams LAB BLOOD ORDERABLES Final Result Performing Organization Address City/[facility]/[place] [address], * Magnesium Level (01/22/2025 7:52 AM CDT) Only the most recent of11 resultswithin the time period is included. Magnesium Level 1.8 1.6 - 2.6 mg/dL 01/22/2025 9:00 AM CDT [facility] Blood Peripheral blood specimen / Unknown Venipuncture / Unknown 01/22/2025 7:52 AM CDT 01/22/2025 8:13 AM CDT Gillian Gomez PA-C LAB BLOOD ORDERABLES Final Result Performing Organization Address City/[facility]/[place] [address], * (ABNORMAL) LDH (01/22/2025 7:52 AM CDT) Only the most recent of11 resultswithin the time period is included. LDH 112(L) 135 - 225 U/L 01/22/2025 9:00 AM CDT [facility] Blood Peripheral blood specimen / Unknown Venipuncture / Unknown 01/22/2025 7:52 AM CDT 01/22/2025 8:13 AM CDT Narrative [facility] - 01/22/2025 9:00 AM CDT Results greater than 1651 U/L may not be reliable due to matrix effect with extended dilution as it exceeds the motion study analyst's recommended limit. Caution should be exercised when interpreting such values and done in conjunction with clinical context. Gillian Gomez PA-C LAB BLOOD ORDERABLES Final Result [address] [address], [place] * (ABNORMAL) Iron Level (01/22/2025 7:52 AM CDT) Only the most recent of2 resultswithin the time period is included. Iron Level 33(L) 59 - 158 mcg/dL 01/22/2025 9:18 AM CDT [facility] Is patient fasting? Yes 01/22/2025 9:18 AM CDT [facility] Blood Peripheral blood specimen / Unknown Venipuncture / Unknown 01/22/2025 7:52 AM CDT 01/22/2025 8:13 AM CDT Marianela Hutchinson MD LAB BLOOD ORDERABLES Final Re sult Performing Organization Address City/[facility]/ZIP Co de Phone Number [id number] [place] [address], [place] * Ferritin Level (01/22/2025 7:52 AM CDT) Only the most recent of2 resultswithin the time period is included. Ferritin Level 177 30 - 400 ng/mL 01/22/2025 9:18 AM CDT [facility] Blood Peripheral blood specimen / Unknown Venipuncture / Unknown 01/22/2025 7:52 AM CDT 01/22/2025 8:13 AM CDT Narrative [facility] - 01/22/2025 9:18 AM CDT Reference range established for age 20 - 60 years Marianela Hutchinson MD LAB BLOOD ORDERABLES Final Re sult [facility] [address] [place] [address] * (ABNORMAL) Cortisol, Total (01/22/2025 7:52 AM CDT) Cortisol 20.14(H) mcg/dL 01/22/2025 9:15 AM CDT [facility] Blood Peripheral blood specimen / Unknown Venipuncture / Unknown 01/22/2025 7:52 AM CDT 01/22/2025 8:13 AM CDT Narrative [facility] - 01/22/2025 9:15 AM CDT Cortisol reference intervals are established [...] Castillo APRN LAB [place] [address], * CEA (01/22/2025 7:52 AM CDT) Only the most recent of9 resultswithin the time period is included. Carcinoembryonic Antigen 2.0 <=3.8 ng/mL 01/22/2025 9:15 AM CDT [facility] Blood Peripheral blood specimen / Unknown Venipuncture / Unknown 01/22/2025 7:52 AM CDT 01/22/2025 8:13 AM CDT Narrative [facility] - 01/22/2025 9:15 AM CDT Reference Ranges (age 20-69 years): Non-smoker: <= 3.8 ng/mL Smoker: <= 5.5 ng/mL This test is measured by electrochemiluminescence immunoassay on [employer]el[employer] Nikki immunoassay analyzers. Results obtained in different methods are not interchangeable. Gillian Gomez PA-C LAB BLOOD ORDERABLES Final Result Performing Organization Address [facility] Co de Phone Number [address] [address], [place] * Sodium Level, Urine (11/13/2024 2:01 PM CDT) Urine Sodium 67 mmol/L 11/13/2024 3:28 PM CDT [facility] Comment:Normal range not cyndee ilable for collections less than 24 hours in duration. Urine Voided urine specimen / Unknown Non-blood Collection / Unknown 11/13/2024 2:01 PM CDT 11/13/2024 2:05 PM CDT Shira Segovia MD URINE ORDERABLES Final Result Performing Organization Address [facility] de Phone Number [facility] Unless otherwise noted, all lab tests performed by: Division of Pathology and Laboratory Medicine [address] [place] [phone] * Potassium Urine (11/13/2024 2:01 PM CDT) Urine Potassium 73 mmol/L 3:28 PM CDT [facility] Comment:Normal range not cyndee ilable for collections less than 24 hours in duration. Urine Voided urine specimen / Unknown Non-blood Collection / Unknown 11/13/2024 2:01 PM CDT 11/13/2024 2:05 PM CDT Shira Segovia MD URINE ORDERABLES Final Result Performing Organization Address City/[facility] Co de Phone Number [facility] Unless otherwise noted, all lab tests performed by: Division of Pathology and Laboratory Medicine [address] [place] [address] * Osmolality (11/13/2024 1:57 PM CDT) Osmolality 291 275 - 300 mOsm/kg 11/13/2024 3:30 PM CDT [facility] Comment:Units in mOsm per kg of water. Blood Peripheral blood specimen / Unknown Venipuncture / Unknown 11/13/2024 1:57 PM CDT 11/13/2024 2:02 PM CDT us Shira Segovia MD LAB BLOOD ORDERABLES Final Resul t [facility] Unless otherwise noted, all lab tests performed by: Division of Pathology and Laboratory Medicine [address] [place] [phone] * X-ray Foot 3+ Views Bilateral (11/13/2024 [...] - 99 mg/dL 10/29/2024 11:52 AM CDT [facility] POC Sample Type Capillary 10/29/2024 11:52 AM CDT [facility] Blood 10/29/2024 11:5 0 AM CDT 10/29/2024 11:52 AM CDT Narrative [facility] - 10/29/2024 11:52 AM CDT [...] MD POCT ORDERABLES - DEVICE Final Result [facility] Unless otherwise noted, all lab tests performed by: Division of Pathology and Laboratory Medicine [address] [place] [phone] * (ABNORMAL) Hemoglobin A1c (10/28/2024 11:01 AM CDT) Only the most recent of2 resultswithin the time period is included. Hemoglobin A1c 6.3(H) 4.3 - 5.6 % 10/28/2024 7:05 PM CDT [facility] Blood Peripheral blood specimen / Unknown Venipuncture / Unknown 10/28/2024 11:01 AM CDT 10/28/2024 11:02 AM CDT Narrative [facility] - 10/28/2024 7:05 PM CDT HbA1c values >=6.5% are diagnostic of diabetes mellitus. Diagnosis should be confirmed by repeat testing. Therapeutic Action suggested: >8.0% HbA1c; Goal of therapy: <7.0% HbA1c Bessy Gaming APRN LAB BLOOD ORDERABLES Fin al Result Performing Organization Address City/[facility]/ZIP Co de Phone Number [facility] Unless otherwise noted, all lab tests performed by: Division of Pathology and Laboratory Medicine [address] [place] [phone] * EKG, 12-Lead (Portable) (10/28/2024) Only the most recent of3 resultswithin the time period is included. John Forte MD ECG ORDERABLES Final Result Performing Organization Address [facility] Co de Phone Number [facility] * X-ray Abdomen 2 View AP W [...] spine. Procedure Note Zora Gusman MD - 06/08/2025 FULL RESULT: Examination: XR ABDOMEN 2 VW [...] - 146 mmol/L 10/25/2024 8:30 AM CDT [facility] POC Potassium 4.9 3.5 - 4.9 mmol/L 10/25/2024 8:30 AM CDT [facility] POC Chloride 101 98 - 109 mmol/L 10/25/2024 8:30 AM CDT [facility] POC VTCO2 25 24 - 29 mmol/L 10/25/2024 8:30 AM CDT [facility] POC Anion Gap 16 10 - 20 mmol/L 10/25/2024 8:30 AM CDT [facility] POC BUN 16 8 - 26 mg/dL 10/25/2024 8:30 AM CDT [facility] POC Creatinine 0.8 0.6 - 1.3 mg/dL 10/25/2024 8:30 AM CDT [facility] Comment:Medications, especia lly hydroxyurea or supplements, such as ascorbate, can interfere with test results causing a falsely and significantly higher result than expected. If a problem is suspected with a patient's result, a sample should be sent to the laboratory for confirmatory testing. POC I Glu 147(H) 70 - 99 mg/dL 10/25/2024 8:30 AM CDT [facility] Comment:Medications, especia lly hydroxyurea or supplements, such as ascorbate, can interfere with test results causing a falsely and significantly higher result than expected. If a problem is suspected with a patient's result, a sample should be sent to the laboratory for confirmatory testing. POC Ionized Calcium 1.20 1.12 - 1.32 mmol/L 10/25/2024 8:30 AM T [facility] POC Sample Type Venous 8:30 AM T [facility] POC eGFR 101 >=60 mL/min/1.7 3 sq. m 10/25/2024 8:30 AM T [facility] Comment: The eGFRcr is [...] AM CDT 10/25/2024 8:30 AM CDT Narrative [facility] - 10/25/2024 8:30 AM CDT [...] ORDERABLE S Final Result Performing Organization Address [facility] Co de Phone Number [facility] Unless otherwise noted, all lab tests performed by: Division of Pathology and Laboratory Medicine [address] [place] [phone] * (ABNORMAL) Lipase Level (10/25/2024 8:15 AM CDT) Only the most recent of3 resultswithin the time period is included. Lipase Level 202(H) 13 - 60 U/L 10/27/2024 7:12 AM CDT [facility] Blood Peripheral blood specimen / Unknown Port / Unknown 10/25/2024 8:15 AM CDT 10/25/2024 8:22 AM CDT Narrative [facility] - 10/27/2024 7:12 AM CDT Reference range established based on adult population Gillian Gomez PA-C LAB BLOOD ORDERABLES Final Result Performing Organization Address [facility] Co de Phone Number [facility] Unless otherwise noted, all lab tests performed by: Division of Pathology and Laboratory Medicine [address] [place] [phone] * (ABNORMAL) Amylase Level (10/25/2024 8:15 AM CDT) Only the most recent of3 resultswithin the time period is included. Amylase Level 107(H) 28 - 100 U/L 10/27/2024 7:12 AM CDT [facility] Blood Peripheral blood specimen / Unknown Port / Unknown 10/25/2024 8:15 AM CDT 10/25/2024 8:22 AM CDT us Gillian Gomez PA-C LAB BLOOD ORDERABLES Final Result Performing Organization Address City/[facility] Co de Phone Number [facility] Unless otherwise noted, all lab tests performed by: Division of Pathology and Laboratory Medicine [address] [place] [phone] * Fractionated Bilirubin (10/25/2024 7:40 AM CDT) Only the most recent of2 resultswithin the time period is included. Bilirubin Direct 10/26/19 8:50 AM CDT [facility] Comment: Direct and indirect bilirubin will not be reported when Total bilirubin result is <0.3 mg/dL Indocyanine Green (ICG) may cause falsely elevated bilirubin results. Total and direct bilirubin must not be measured from samples containing indocyanine green. Bilirubin Indirect 2024 8:50 AM CDT [facility] Comment:Direct and indirect bilirubin will not be reported when Total bilirubin result is <0.3 mg/dL Bilirubin Total <0.3 0.0 - 1.2 mg/dL 10/25/2024 8:50 AM CDT [facility] Comment: Direct and indirect [...] MD LAB BLOOD ORDERABLES Final R esult [facility] Unless otherwise noted, all lab tests performed by: Division of Pathology and Laboratory Medicine [address] [place] [id number] * Research Protocol [id number] (07/15/2024 10:01 AM PREVENTIVE MEDICINE PHYSICIAN) Only the most recent of2 resultswithin the time period is included. Pathologist [facility] Research Protocol Specimen Specimen Collected, Ready for Pickup. 07/15/2024 12:00 PM PREVENTIVE MEDICINE PHYSICIAN [facility] Blood Venipuncture / Unknown 07/15/2024 10:01 AM PREVENTIVE MEDICINE PHYSICIAN 07/15/2024 10:10 AM PREVENTIVE MEDICINE PHYSICIAN us Marianela Hutchinson MD [facility] Z CODES Final Re sult [facility] Unless otherwise noted, all lab tests performed by: Division of Pathology and Laboratory Medicine [address] [place] [phone] * IHC Workup (07/07/2024 12:29 PM PREVENTIVE MEDICINE PHYSICIAN) Tissue 07/07/2024 12:2 9 PM PREVENTIVE MEDICINE PHYSICIAN 07/07/2024 12:29 PM PREVENTIVE MEDICINE PHYSICIAN us Gillian Gomez PA-C [employer] ORDERABLE S Final Result Performing Organization Address City/[facility]/ZIP Co de Phone Number [facility] [address] [address], [place] * Pathology Biopsy Interpretation (06/30/2024 12:51 PM PREVENTIVE MEDICINE PHYSICIAN) Only the most recent of2 resultswithin the time period is included. Addendum 1 By immunohistochemistry, approximately 10% of the tumor cells show weakly to moderately cytoplasmic staining for claudin 18. By immunohistochemistry the combined positive score (CPS) for PD-L1 is <1. 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 07/10/2024 8:47 AM [facility] at 1826 PREVENTIVE MEDICINE PHYSICIAN Gross Description A: Esophagus, lower esophageal ulcer at 37cm: Multiple soft light castillo tissue fragments, 0.7 x 0.6 x 0.1 cm in aggregate, entirely submitted in A1. ET 07/10/2024 8:47 AM [facility] Biomarker Block(s) Block for biomarker testing: A1 07/10/2024 8:47 AM [facility] Disclaimer "Some tests reported here may have been developed and performance characteristics determined by [facility] Pathology and Laboratory Medicine. These tests have not been specifically cleared or approved by the U.S. Food and Drug Administration. If applicable, controls were reviewed and showed appropriate reactivity." 07/10/2024 8:47 AM [facility] Tissue (Esophagus) 06/30/2024 12:51 PM PREVENTIVE MEDICINE PHYSICIAN 06/30/2024 2:51 PM PREVENTIVE MEDICINE PHYSICIAN us Brandon Galo MD LAB PATHOLOGY ORDERA BLES Edited Result - Final [facility] [address] [place] [address], [place] * (ABNORMAL) POC Chem 8 (06/30/2024 11:10 AM PREVENTIVE MEDICINE PHYSICIAN) Only the most recent of2 resultswithin the time period is included. POC Sodium 136(L) 138 - 146 mmol/L 06/30/2024 11:13 AM [facility] POC Potassium 4.5 3.5 - 4.9 mmol/L 06/30/2024 11:13 AM [facility] POC Chloride 100 98 - 109 mmol/L 06/30/2024 11:13 AM [facility] POC VTCO2 27 24 - 29 mmol/L 06/30/2024 11:13 AM [facility] POC Anion Gap 14 10 - 20 mmol/L 06/30/2024 11:13 AM [facility] POC BUN 30(H) 8 - 26 mg/dL 06/30/2024 11:13 AM [facility] POC Creatinine 1.1 0.6 - 1.3 mg/dL 06/30/2024 11:13 AM [facility] Comment:Medications, especia lly hydroxyurea or supplements, such as ascorbate, can interfere with test results causing a falsely and significantly higher result than expected. If a problem is suspected with a patient's result, a sample should be sent to the laboratory for confirmatory testing. POC I Glu 182(H) 70 - 99 mg/dL 06/30/2024 11:13 AM [facility] Comment:Medications, especia lly hydroxyurea or supplements, such as ascorbate, can interfere with test results causing a falsely and significantly higher result than expected. If a problem is suspected with a patient's result, a sample should be sent to the laboratory for confirmatory testing. POC Ionized Calcium 1.26 1.12 - 1.32 mmol/L 06/30/2024 11:13 AM [facility] POC Hct 39.0 38.0 - 51.0 % 06/30/2024 11:13 AM [facility] POC Hgb 13.3 12.0 - 17.0 gm/dL 06/30/2024 11:13 AM [facility] Comment:Hematocrit values fr om [...] standard. POC Sample Type Venous 11:13 AM [facility] POC eGFR 77 >=60 mL/min/1.7 3 sq. m 06/30/2024 11:13 AM [facility] Comment: The eGFRcr [...] for CKD. Blood 06/30/2024 11:1 0 AM PREVENTIVE MEDICINE PHYSICIAN 06/30/2024 11:13 AM PREVENTIVE MEDICINE PHYSICIAN Narrative [facility] - 06/30/2024 11:13 AM PREVENTIVE MEDICINE PHYSICIAN Method description: The i-STAT is an analyzer [...] DE VICE Final Result Performing Organization Address [facility] Co de Phone Number [facility] Unless otherwise noted, all lab tests performed by: Division of Pathology and Laboratory Medicine [address] [place] [phone] * EKG, 12-Lead (Scheduled) (06/29/2024) Only the most recent of2 resultswithin the time period is included. Mary Kay Santamaria APRN ECG ORDERABLES Final R esult Performing Organization Address [facility] Co de Phone Number [facility] * PETCT F18 FDG (Fluorodeoxyglucose) with contrast (06/20/2024 12:42 PM PREVENTIVE MEDICINE PHYSICIAN) Anatomical Region Laterality Modality Whole Body Positron Emissio n Tomography (PET) 06/20/2024 3:10 PM PREVENTIVE MEDICINE PHYSICIAN Impressions 06/20/2024 4:38 PM PREVENTIVE MEDICINE PHYSICIAN Biopsy-proven malignancy in the region of the [...] and potentially actionable. Narrative 06/20/2024 4:38 PM PREVENTIVE MEDICINE PHYSICIAN FULL RESULT: Examination: 18F-FDG-PET/CT with contrast, 06/20/2024 [...] PA-C IMG PETCT ORDERABLES Final Result * Tip Verification Central Vascular Access Device (04/15/2024 3:50 PM PREVENTIVE MEDICINE PHYSICIAN) Narrative John Fong MD - 04/15/2024 3:50 PM PREVENTIVE MEDICINE PHYSICIAN John Fong MD 04/15/2024 3:50 PM Central Vascular Access Device Tip Verification Performed by: John Fong MD Authorized by: John Fong MD CVAD Properties Date device placed: 04/15/2024 Device placement location: [facility] Catheter Type: Implanted venous port Catheter lumen: Single lumen Vein location: Internal jugular vein Laterality: Right Tip in good position and cleared for infusion John Fong MD IV THERAPY ORDERABLES Final Re sult * XR Chest 1 View Portable (04/15/2024 2:45 PM PREVENTIVE MEDICINE PHYSICIAN) Anatomical Region Laterality Modality Chest Digital Radiogra phy 04/15/2024 2:50 PM PREVENTIVE MEDICINE PHYSICIAN Impressions 04/15/2024 2:53 PM PREVENTIVE MEDICINE PHYSICIAN 1. Right infusion port catheter terminates over [...] and potentially actionable. Narrative 04/15/2024 2:53 PM PREVENTIVE MEDICINE PHYSICIAN FULL RESULT: Examination: XR CHEST 1 VW [...] unexpected and potentially actionable. John Fong MD [facility] ORDERAB LES Final Result * Cytology Non-Cst Interpretation (04/15/2024 12:33 PM PREVENTIVE MEDICINE PHYSICIAN) Gross Description 4 Pap Stain Slides 750 ml. clear yellow fluid Specimen concentrated by cytocentrifugation technique 4 4:07 PM PREVENTIVE MEDICINE PHYSICIAN [facility] Major Classification [facility]/benign 4 4:07 PM PREVENTIVE MEDICINE PHYSICIAN [facility] at 1607 PREVENTIVE MEDICINE PHYSICIAN Diagnosis Peritoneal washing: No metastatic carcinoma identified Reactive mesothelial cells and histiocytes 4 4:07 PM PREVENTIVE MEDICINE PHYSICIAN [facility] at 1607 PREVENTIVE MEDICINE PHYSICIAN Retained/Biomark er Testing SR:4S 4 4:07 PM PREVENTIVE MEDICINE PHYSICIAN [facility] Informational Points Some tests reported here may have been developed and performance characteristics determined by [facility] Pathology and Laboratory Medicine. These tests have not been specifically cleared or approved by the U.S. Food and Drug Administration. 4 4:07 PM PREVENTIVE MEDICINE PHYSICIAN [facility] Washing (Peritoneal Washing) 04/15/2024 12:33 PM PREVENTIVE MEDICINE PHYSICIAN 04/15/2024 1:10 PM PREVENTIVE MEDICINE PHYSICIAN us John Fong MD LAB CYTOLOGY ORDERABLES Final Result [facility] [address] [address], * Pathology Surgical Interpretation (04/15/2024 12:13 PM PREVENTIVE MEDICINE PHYSICIAN) Submitted Clinical History Adenocarcinoma of stomach [C16.9] 04/20/2024 8:13 PM PREVENTIVE MEDICINE PHYSICIAN [facility] Diagnosis A. Falciform ligament, resection: Fibroadipose tissue, no tumor present 04/20/2024 8:13 PM PREVENTIVE MEDICINE PHYSICIAN [facility] at 2013 PREVENTIVE MEDICINE PHYSICIAN Gross Description A: Falciform ligament, falciorm ligament biopsy....or 16: Consists of a fragment of castillo-yellow, lobulated fat (0.8 x 0.6 x 0.5 cm) entirely submitted in cassette A1. EF 04/20/2024 8:13 PM PREVENTIVE MEDICINE PHYSICIAN [facility] Disclaimer "Some tests reported here may have been developed and performance characteristics determined by [facility] Pathology and Laboratory Medicine. These tests have not been specifically cleared or approved by the U.S. Food and Drug Administration. If applicable, controls were reviewed and showed appropriate reactivity." 04/20/2024 8:13 PM PREVENTIVE MEDICINE PHYSICIAN [facility] Tissue (Falciform Ligament) 04/15/2024 12:13 PM PREVENTIVE MEDICINE PHYSICIAN 04/15/2024 1:18 PM PREVENTIVE MEDICINE PHYSICIAN us John Fong MD LAB PATHOLOGY ORDERABLES Final Result [facility] [address] [place] [address], [place] * FL Central Venous Place Exchange (04/15/2024 11:40 AM PREVENTIVE MEDICINE PHYSICIAN) Narrative Systemgenerated, Documentation - 04/15/2024 11:40 AM PREVENTIVE MEDICINE PHYSICIAN This procedure requires no interpretation from the radiologist. us John Fong MD IMG FLUOROSCOPY ORDERABLES Fin al Result * CT Abdomen Pelvis with IV Contrast (04/12/2024 11:18 AM PREVENTIVE MEDICINE PHYSICIAN) Anatomical Region Laterality Modality Abdomen, Pelvis Computed Tomogra phy 04/12/2024 11:5 2 AM PREVENTIVE MEDICINE PHYSICIAN Impressions 04/12/2024 12:11 PM PREVENTIVE MEDICINE PHYSICIAN Wall thickening and slight mucosal irregularity of [...] and potentially actionable. Narrative 04/12/2024 12:11 PM PREVENTIVE MEDICINE PHYSICIAN FULL RESULT: Examination: CT ABDOMEN PELVIS W [...] Final Result * TSH (04/09/2024 11:09 AM PREVENTIVE MEDICINE PHYSICIAN) Thyroid Stimulating Hormone 1.53 0.27 - 4.20 mcunit/mL 04/09/2024 12:23 PM PREVENTIVE MEDICINE PHYSICIAN [facility] Blood Peripheral blood specimen / Unknown Venipuncture / Unknown 04/09/2024 11:09 AM PREVENTIVE MEDICINE PHYSICIAN 04/09/2024 11:19 AM PREVENTIVE MEDICINE PHYSICIAN Ceci Nicholson MD LAB BLOOD ORDERABLES Final Resu lt [facility] Unless otherwise noted, all lab tests performed by: Division of Pathology and Laboratory Medicine [address] [place] [phone] * Pathology Outside Interpretation (04/02/2024) Materials Received Accession#, Stained, Block, Unstained Collected Received A. [id number], 20 SS, 0 BLOCKS, 0 USS 04/02/2024 04/22/2024 04/22/2024 5:36 PM PREVENTIVE MEDICINE PHYSICIAN [facility] Diagnosis Outside ([id number], 20 SS, 0 BLOCKS, 0 USS, collected [...] ADENOCARCINOMA WITH SIGNET CELL FEATURES. See comment. /ISAURO 04/22/2024 5:36 PM PREVENTIVE MEDICINE PHYSICIAN [employer] at 1736 PREVENTIVE MEDICINE PHYSICIAN Comment Part A. There is no evidence of malignancy on H&E and immunohistochemical stain for Cytokeratin AE1/AE3. Of note, the biopsy may not be dermatology sales representative of the entire lesion. Please [...] immunohistochemistry: Negative (Score: 0) 04/22/2024 5:36 PM [facility] Block(s) Block for biomarker testing: C1 Normal block: N/A 04/22/2024 5:36 PM PREVENTIVE MEDICINE PHYSICIAN [employer] Disclaimer "Some tests reported here may have been developed and performance characteristics determined by [facility] Pathology and Laboratory Medicine. These tests have not been specifically cleared or approved by the U.S. Food and Drug Administration. If applicable, controls were reviewed and showed appropriate reactivity." 04/22/2024 5:36 PM PREVENTIVE MEDICINE PHYSICIAN [facility] Tissue 04/02/2024 04/22/2024 6:4 0 AM PREVENTIVE MEDICINE PHYSICIAN Sybil Edmonds MD LAB PATHOLOGY ORDERABLES Final R esult [facility] [address] [place] [address], [place] * OSI CT Abdomen and Pelvis (04/01/2024 8:21 AM PREVENTIVE MEDICINE PHYSICIAN) Only the most recent of2 resultswithin the time period is included. Narrative Systemgenerated, Documentation - 04/27/2024 8:22 AM PREVENTIVE MEDICINE PHYSICIAN Study acquired at another institution. For comparison only. No MD Pernell originated interpretation requested or available. [facility] Regan Zhu DO IMG OUTSIDE IMAGE ORDERAB LES Final Result * OSI CT CHEST ABDOMEN PELVIS (03/23/2024 7:37 PM PREVENTIVE MEDICINE PHYSICIAN) Narrative Systemgenerated, Documentation - 04/09/2024 7:37 PM PREVENTIVE MEDICINE PHYSICIAN Study acquired at another institution. For comparison only. No [facility] originated interpretation requested or available. Margoth Souza MD IMG OUTSIDE IMAGE ORDERABLES Fin al Result * OSI Chest (03/23/2024 7:37 PM PREVENTIVE MEDICINE PHYSICIAN) Only the most recent of2 resultswithin the time period is included. Narrative Systemgenerated, Documentation - 04/09/2024 7:37 PM PREVENTIVE MEDICINE PHYSICIAN Study acquired at another institution. For comparison only. No MD Pernell originated interpretation requested or available. Margoth Souza MD IMG OUTSIDE IMAGE ORDERABLES Fin al Result * OSI CT Chest (03/22/2024 8:21 AM PREVENTIVE MEDICINE PHYSICIAN) Narrative Systemgenerated, Documentation - 04/27/2024 8:21 AM PREVENTIVE MEDICINE PHYSICIAN Study acquired at another institution. For comparison only. No MD Gimenez originated interpretation requested or available. [facility] Reganjoe Zhu DO IMG OUTSIDE IMAGE ORDERAB LES Final Result after 02/04/2024 Insurance MEDICARE PART A AND B MEDICARE [...] based on Advanced Directive Documentation Care Teams Field Training Manager Relationship Specialty Start Date End Date Margoth Souza MD [address] [place] [phone] [email or web address] PCP - General Urology 07/30/23 04/14/24 Eagle Zhu DO [address] [place] [id number] [email or web address] PCP - External Primary Care Provider Family Practice 04/08/24 Marianela Hutchinson MD [address] [place] [phone] [email or web address] PCP - General Gastrointestinal Medical Oncology 05/04/24 Mary Jane Cassidy MD [address] [place] [phone] [email or web address] Consulting Physician Endocrinology 12/09/23 Barry He MD [address] [place] [phone] [email or web address] Consulting Physician Internal Medicine 12/23/23 Patience Hunt MD [address] [place] [phone] [email or web address] Consulting Physician Endocrinology 12/31/23 Marianela Hutchinson MD [address] [place] [phone] [email or web address] Consulting Physician Gastrointestinal Medical Oncology 04/13/24 Margoth Souza MD [address] [place] [phone] [email or web address] Consulting Physician Urology 04/15/24 Ceci Nicholson MD [address] [place] [phone] [email or web address] Consulting Physician Internal Medicine 04/09/24 Sigifredo Davenport MD [address] [place] [phone] [email or web address] Consulting Physician Internal Medicine 06/29/24 Abilio Ng, PA-C [address] [place] [phone] Physician Mill Representative Interventional Radiology 10/02/23 Shira Segovia MD [address] [place] [phone] [email or web address] Consulting Physician Internal Medicine 10/30/24 Ancelmo Love MD [address] [place] [phone] General Surgery 01/05/25
[2025-02-03] MEDS ORDERED: PROMETHAZINE INJ 25 MG/ML AMP ONE (06:03)
[2025-02-03] MEDS ORDERED: METOCLOPRAMIDE 10 MG/2mL INJ ONE (06:03)
[2025-02-03] MEDS ORDERED: NA CHLORIDE 0.9% 1,000 ML ONE (06:03)
[2025-02-03 06:09] LABS: Absolute Lymphocytes (CBC) 1.5 K/uL (0.7-4.9); Hematocrit 33.3 % (39.6-49.0); Hemoglobin 11.3 g/dL (13.6-17.9); MCH 25.4 pg (27.0-35.0); MCHC 33.8 g/dL (32.0-36.0); MCV 75.2 fL (80-100); MPV 7.0 fL (7.6-11.3); Nucleated RBC Absolute Count 0.0 (0-0); Nucleated Red Blood Cells % 0.0 % (0-0); RBC Red Blood Cell Count 4.43 M/uL (4.33-5.43); White Blood Count 6.70 thou/uL (4.3-10.9)
[2025-02-03 06:30] LABS: AST/SGOT 12 U/L (15-37); Albumin 2.8 g/dL (3.4-5.0); Albumin/Globulin Ratio 0.6 (1.1-1.8); Alkaline Phosphatase 88 U/L (45-117); Anion Gap 14.6 mEq/L (5.0-15.0); BUN Blood Urea Nitrogen 30 mg/dL (7-18); Globulin 4.6 g/dL (2.3-3.5); Glucose Level 114 mg/dL (74-106); Lipase 510 U/L (13-75); Potassium 3.6 mEq/L (3.5-5.1)
[2025-02-03 06:37] LABS: ALT/SGPT < 14 U/L (16-61)
--- NOTE | 2025-02-03 07:12 | EDPHYS ---
Physician Documentation [facility] Name: Zeke Mackay Age: 60 yrs Sex: Male : 1965 Arrival Date: 02/03/2025 Time: 05:21 Bed 17 Private MD: Maame Zhuh ED Physician Jag Horvath HPI: 02/03 05:32 This 60 yrs old Male presents to ER via Unassigned with complaints of sp4 Nausea/Vomiting. 07:23 60-year-old male with history of diabetes, gastric cancer, amputation, of the right sp4 transmetatarsal foot, presents with acute persistent nausea which commonly happens to the patient secondary to his chronic problems. . 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 - Infectious Disease History:: Denies. - Family history:: not pertinent. - Social history:: Smoking status: unknown. ROS: 07:23 Constitutional: Negative for fever, chills, and weight loss, positive for acute sp4 nausea, positive for feeling unwell 07:23 All other systems are negative, Exam: 07:23 Constitutional: Frail elderly male, ill-appearing, nontoxic. The right chest wall sp4 chemotherapy port present 07:23 Head/Face: Normocephalic, atraumatic. Eyes: Pupils equal round and reactive to light, extra-ocular motions intact. Lids and lashes normal. Conjunctiva and sclera are not injected. Cornea within normal limits. Periorbital areas with no swelling, redness, or edema. ENT: Nares patent. No nasal discharge, no septal abnormalities noted. Tympanic membranes are normal and external auditory canals are clear. Oropharynx with no redness, swelling, or masses, exudates, or evidence of obstruction, uvula midline. Mucous membranes moist. Neck: Trachea midline, no thyromegaly or masses palpated, and no cervical lymphadenopathy. Supple, full range of motion without nuchal rigidity, or vertebral point tenderness. Chest/axilla: Normal chest wall appearance and motion. Nontender with no deformity. No lesions are appreciated. Cardiovascular: Regular rate and rhythm with a normal S1 and S2. No gallops, murmurs, or rubs. No pulse deficits. Respiratory: Lungs have equal breath sounds bilaterally, clear to auscultation and percussion. No rales, rhonchi or wheezes noted. No increased work of breathing, no retractions or nasal flaring. Abdomen/GI: Soft, with normal bowel sounds. No distension or tympany. No guarding or rebound. No evidence of tenderness throughout. Back: No spinal tenderness. No costovertebral tenderness. Skin: Warm, dry with normal turgor. Normal color with no rashes, no lesions, and no evidence of cellulitis. MS/ Extremity: Pulses equal, no cyanosis. Neurovascular intact. Full, normal range of motion. Neuro: Awake and alert, GCS 15, oriented to person, place, time, and situation. Cranial nerves II-XII grossly intact. Motor strength 5/5 in all extremities. Sensory grossly intact. Psych: Awake, alert, with orientation to person, place and time. Behavior, mood, and affect are within normal limits Vital Signs: 05:35 BP 200 / 107; Pulse 105; Resp 20; Temp 97.7; Pulse Ox 100% on R/A; Pain 0/10; zm 05:35 Pain Scale: Adult zm [place] Coma Score: 07:23 Eye Response: spontaneous(4). Motor Response: obeys commands(6). Verbal Response: sp4 oriented(5). Total: 15. MDM: 05:39 Medical Screening Exam initiated sp4 07:26 Differential diagnosis: Nonspecific abd pain, gastritis, viral gastroenteritis, sp4 gastroenteritis. Data reviewed: vital signs, nurses notes, lab test result(s), CBC, electrolytes. Consideration of Admission/Observation Escalation of care including admission/observation considered. ED course: Patient was given Reglan and also IM Phenergan which is what he commonly desirous for nausea. Patient has improved symptomatically. Stable for discharge.. 02/03 05:37 Order name: CBC with Diff; Complete Time: 06:17 vc1 02/03 05:37 Order name: CMP; Complete Time: 07:06 vc1 02/03 05:37 Order name: Lipase; Complete Time: 07:06 1 02/03 05:37 Order name: IV Saline Lock; Complete Time: 06:07 1 02/03 05:37 Order name: Labs collected and sent; Complete Time: : Administered Medications: 06:20 Drug: Promethazine IM 50 mg IM once Route: IM; Site: right ventrogluteal; zm 07:56 Follow up: Response: No adverse reaction; Nausea is decreased ap3 06:20 Drug: NS 0.9% IV 1000 ml IV at 1 bolus Per protocol; to be given as a bolus over 60 zm minutes Route: IV; Rate: 1 bolus; Site: Port-a-cath; 07:56 Follow up: IV Status: Completed infusion ap3 06:21 Drug: metoCLOPramide IM 10 mg IM once Route: IM; Site: left ventrogluteal; zm 07:56 Follow up: Response: No adverse reaction; Nausea is decreased ap3 Disposition Summary: 02/03/25 07:11 Discharge Ordered Notes: Location: Home sp4 Problem: new sp4 Symptoms: have improved sp4 Condition: Stable sp4 Diagnosis - Acute nausea , acute generalized weakness sp4 Followup: sp4 - With: Eagle Zhu, DO - When: 7 - 10 days - Reason: Recheck today's complaints Discharge Instructions: - Discharge Summary Sheet sp4 - Nausea, Adult, [id number] sp4 Forms: - Patient Portal Instructions sp4 Signatures: Dispatcher [employer] Jacque Mock RN RN vc1 Lianet Merino RN RN zm Potepalov, Sergey, MD MD sp4 Kianna Ryan RN ap3
--- NOTE | 2025-02-03 07:12 | ER ---
Nurse's Notes [facility] Name: Zeke Mackay Age: 60 yrs Sex: Male : 1965 Arrival Date: 02/03/2025 Time: 05:21 Bed 17 Private MD: Eagle Zhu Diagnosis: Acute nausea , acute generalized weakness Presentation: 02/03 05:35 Chief complaint: Patient states: "i had a chemo treatment Saturday and have had n/v zm since". Coronavirus screen: Vaccine status: Patient reports being unvaccinated. Client denies travel out of the [place] in the last 14 days. At this time, the client does not indicate any symptoms associated with coronavirus-19. Ebola Screen: Patient denies travel to an Ebola-affected area in the 21 days before illness onset. No symptoms or risks identified at this time. Initial Sepsis Screen: Does the patient meet any 2 criteria? No. Patient's initial sepsis screen is negative. Does the patient have a suspected source of infection? No. Patient's initial sepsis screen is negative. Risk Assessment: Do you want to hurt yourself or someone else? Patient reports no desire to harm self or others. Onset of symptoms was January 31, 2025. 05:35 Method Of Arrival: Wheelchair zm 05:35 Acuity: RICKEY 3 zm Triage Assessment: 05:38 General: Appears in no apparent distress. uncomfortable, ill, Behavior is calm, zm cooperative. Pain: Denies pain. EENT: No deficits noted. No signs and/or symptoms were reported regarding the EENT system. Neuro: No deficits noted. Level of Consciousness is awake, alert, obeys commands, Oriented to person, place, time, situation. Cardiovascular: No deficits noted. Capillary refill < 3 seconds in bilateral fingers Patient's skin is warm and dry. Respiratory: No deficits noted. Airway is patent Respiratory effort is even, unlabored, Respiratory pattern is regular, symmetrical. GI: No deficits noted. Abdomen is flat, non-distended, Bowel sounds present X 4 quads. Abd is soft and non tender Reports nausea, vomiting. : No deficits noted. No signs and/or symptoms were reported regarding the genitourinary system. Derm: No deficits noted. No signs and/or symptoms reported regarding the dermatologic system. Skin is pink, warm \\T\\ dry. Musculoskeletal: No signs and/or symptoms reported regarding the musculoskeletal system. Circulation, motion, and sensation intact. 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 - Infectious Disease History:: Denies. - Family history:: not pertinent. - Social history:: Smoking status: unknown. Screenin:41 [facility] ED Fall Risk Assessment (Adult) History of falling in the last 3 months, zm including since admission No falls in past 3 months (0 pts) Confusion or Disorientation No (0 pts) Intoxicated or Sedated No (0 pts) Impaired Gait No (0 pts) Mobility Assist Device Used No (0 pt) Altered Elimination No (0 pt) Score/Fall Risk Level 0 - 2 = Low Risk Oriented to surroundings, Maintained a safe environment, Educated pt \\T\\ family on fall prevention, incl call for assistance when getting out of bed, Assessed \\T\\ reinforced patient's understanding of fall precautions, Hourly rounding (assess needs \\T\\ fall precautionary measures) done, Used ambulatory aids as needed (educated on \\T\\ assisted with), Used gait belt as appropriate. Abuse screen: Denies threats or abuse. Denies injuries from another. Nutritional screening: No deficits noted. Tuberculosis screening: No symptoms or risk factors identified. Assessment: 05:41 Reassessment: see triage assessment. zm Vital Signs: 05:35 BP 200 / 107; Pulse 105; Resp 20; Temp 97.7; Pulse Ox 100% on R/A; Pain 0/10; zm 05:35 Pain Scale: Adult zm Ragley Coma Score: 07:23 Eye Response: spontaneous(4). Motor Response: obeys commands(6). Verbal Response: sp4 oriented(5). Total: 15. ED Course: 05:23 Patient arrived in ED. gm2 05:23 Eagle Zhu DO is Private Physician. gm2 05:27 Lianet Merino, ARTURO is Primary Nurse. zm 05:32 Jag Horvath MD is Attending Physician. sp4 05:38 Triage completed. zm 05:38 Arm band placed on right wrist. zm 05:41 Patient has correct armband on for positive identification. Bed in low position. Call light in reach. Side rails up X2. Client placed on continuous cardiac and pulse oximetry monitoring. NIBP monitoring applied. Pulse ox on. NIBP on. Door closed. Noise minimized. Lights dimmed. Warm blanket given. Verbal reassurance given. 05:58 Accessed Port-a-Cath. using accessed w/ # 20 Gonzalez needle, ,sterile technique, per hospital protocol. Clean \\T\\ dry. Dressing intact. Good blood return. Flushes easily. 05:58 Initial lab(s) drawn, by me, sent to lab. 06:07 CBC with Diff Sent. 06:07 CMP Sent. 06:07 Lipase Sent. 07:04 Report given to ARTURO Hutchison. 07:11 Eagle Zhu DO is Referral Physician. sp4 07:55 No provider procedures requiring assistance completed. IV discontinued, intact, ap3 bleeding controlled, No redness/swelling at site. Pressure dressing applied. 07:56 Provided Education on: discharge instructions. ap3 Administered Medications: 06:20 Drug: Promethazine IM 50 mg IM once Route: IM; Site: right ventrogluteal; 07:56 Follow up: Response: No adverse reaction; Nausea is decreased ap3 06:20 Drug: NS 0.9% IV 1000 ml IV at 1 bolus Per protocol; to be given as a bolus over 60 zm minutes Route: IV; Rate: 1 bolus; Site: Port-a-cath; 07:56 Follow up: IV Status: Completed infusion ap3 06:21 Drug: metoCLOPramide IM 10 mg IM once Route: IM; Site: left ventrogluteal; zm 07:56 Follow up: Response: No adverse reaction; Nausea is decreased ap3 Medication: 05:41 VIS not applicable for this client. Outcome: 07:11 Discharge ordered by . sp4 07:55 Discharged to home via wheelchair, ap3 07:55 Condition: good 07:55 Discharge instructions given to patient, Instructed on discharge instructions, follow up and referral plans. Demonstrated understanding of instructions, follow-up care, 07:57 Patient left the ED. ap3 Signatures: Kianna Ryan RN RN ap3 Lianet Merino RN RN zm Jag Horvath MD MD sp4 Trina Reynoso 2
[2025-02-03 08:37] VITALS: BP 200/107; TEMP 97.7; O2SAT 100
== END 2025-02-03 07:57 | disposition home or self-care (01) ==
LOC: ER 05:21
DX: R11.0 Nausea (principal); R53.1 Weakness
CPT/HCPCS: 96361; 85025; 36415; 83690; 80053; 96360; 96372; 99284; J2550; J2765; J7030